=== PATIENT | female | born 1990 | race Caucasian/White ===

== ENCOUNTER 2022-08-06 17:39 | Emergency (ER) | payer BC, SELFPAY ==
[2022-08-06 17:53] VITALS: BP 172/114; PULSE 81; RESP 18; TEMP 36.8; O2SAT 98; BMI 32.5
--- NOTE | 2022-08-06 18:16 | ED_ITS ---
HPI - Chest Pain General Chief Complaint: Chest Pain Stated Complaint: Chest Pressure Time Seen by Provider: 08/06/22 18:05 History of Present Illness HPI narrative: Radha is a 32yo female patient with known history of CML that presents emergency department with complaints of chest pain present for weeks. The patient reports the pain is well localized to her sternum without radiation of pain. There has been no aggravating or alleviating factors noted. She denies pain with deep inspiration. The patient states she has seen her primary physicians for this concern, and she was advised if the complaint return she should present to the emergency department for evaluation. She reports that the pain began again around 11:00 a.m. today and has waxed and waned throughout the day. The pain at onset was 7/10 and at time of evaluation is noted to be 4/10. The patient reports chronic nausea, and she states there has been no acute change in her level of nausea associated with this concern. She denies any shortness of breath or cough associated. She has had no fever, chills, or sweats. She has had no abdominal pain. She reports a remote history of GERD, and she states this is not similar to previous GERD symptoms. She has no family history of CAD or CO. she denies a personal history of CAD or CO. She does not smoke or use illicit substances. Related Data Home Medications Medication Instructions Recorded Confirmed dasatinib 70 mg tablet (Sprycel) mg PO 08/06/22 duloxetine 60 mg capsule,delayed mg PO 08/06/22 release Allergies Allergy/AdvReac Type Severity Reaction Status Date / Time No Known Drug Allergies Allergy Verified 08/06/22 17:56 Review of Systems Const Denies: fever, chills, fatigue, malaise or night sweats ENMT Denies: throat pain, ear discharge, nasal discharge or nasal congestion Cardio Reports: chest pain; Denies: palpitations, shortness of breath with exertion or shortness of breath when lying down Resp Denies: shortness of breath or cough GI Reports: nausea; Denies: abdominal pain, vomiting, heartburn, diarrhea, constipation, bloating, belching or excessive passing of gas Denies: painful urination, urinary frequency, urinary urgency or blood in urine Musculo Denies: back pain Psych Reports: anxiety (chronic, currently controlled) Endo Denies: excessive urination or fatigue PFSH PFSH Social History Smoking Status: Never smoker Do you use any of these nicotine containing products: None Second hand tobacco smoke exposure: No How often do you have a drink containing alcohol: never How often do you have six or more drinks on one occasion: Never AUDIT-C Alcohol total score: 0 Non-prescribed substance use: denies use service: No Exam Const Vital Signs, click to edit/add: Vital Signs - 24 hr 08/06/22 17:53 08/06/22 18:53 Temperature 98.3 F Pulse Rate [Right Pulse Oximeter] 81 76 Respiratory Rate 18 18 Blood Pressure [Right Upper Arm] 172/114 H 132/89 Pulse Oximetry 98 96 Oxygen Delivery Method Room Air Room Air Documenting provider has reviewed patient's vital signs: yes Common normals: no apparent distress, oriented x3, no limitations, healthy appearing, alert and well nourished General appearance: cooperative, comfortable and well developed; not in distress Orientation/consciousness: Yes awake, Yes oriented to person, Yes oriented to place and Yes oriented to time HENMT Common normals: normocephalic and head/scalp atraumatic Head and scalp: normocephalic and atraumatic Face and sinus: normal facial exam (limited by masking) Eye Common normals: EOMs intact bilaterally General eye: normal appearance of both eyes Chest Common normals: palpation of chest normal Resp Common normals: normal respiratory effort, no retractions, no use of accessory muscles and clear to auscultation bilaterally Effort & inspection: able to speak in complete sentences Auscultation: clear to auscultation bilaterally Cardio Common normals: regular rate, regular rhythm, S1 normal heart sound, S2 normal heart sound, no gallops, no clicks and no murmurs Rate: regular rate Rhythm: regular rhythm Heart sounds: S1 normal and S2 normal GI Common normals: Normal to inspection, nondistended, normoactive bowel sounds present and soft to palpation Palpation: soft and tender Common normals: no CVA tenderness Bladder/kidney exam: no CVA tenderness Back & Pelvis Common normals: no CVA tenderness Extremity Common normals: normal to inspection, full ROM and no clubbing, cyanosis or edema Neuro Common normals: oriented x3, CN's II-XII intact bilaterally, moves all extremities, no focal motor deficits and no sensory deficits noted Sensorium/orientation: awake, alert, oriented to person, oriented to place and oriented to time Gait (neuro): normal gait Sensory exam: double simultaneous stimulation for sensation normal Motor exam: no movement abnormalities noted Psych Common normals: mental status grossly normal, thought process normal and speech normal Appearance: grossly normal Attitude: calm Speech: normal speech Thought process: normal thought process Thought content: normal thought content Attention/concentration: attention grossly intact Memory/cognition: memory grossly intact Insight: insight good Judgement: judgment good Skin Common normals: no rashes or lesions noted General skin exam: no rashes or lesions noted Course Course Hospital Course: Radha presented for concerns about chest pain that has been present for weeks, but waxing and waning. She would like evaluation and treatment and presents at the request of her primary physician. The patient denied treatment or evaluation prior to presentation. Labs and ECG were ordered. Imaging will be reserved pending lab evaluation, given patient's h/o CML, DDimer has been ordered. She is resting comfortably and has been advised to notify staff if her pain worsens. She has been offered a GI cocktail for pain control after evaluation. Reevaluation(s) Reevaluation #1: Patient reports significant improvement in symptoms. Patient's vital signs have remained stable, although noted to be hypertensive. She did not receive GI cocktail, and she still reports significant improvement in pain. The results were discussed, and the patient verbalized understanding. Reasons for follow-up or return were discussed. Time: 19:47 Vital Signs Vital signs: Initial Vital Signs Temperature 98.3 F 08/06/22 17:53 Temperature Source Temporal Artery Scan 08/06/22 17:53 Pulse Rate 81 08/06/22 17:53 Respiratory Rate 18 08/06/22 17:53 Blood Pressure 172/114 H 08/06/22 17:53 Blood Pressure Mean 133 08/06/22 17:53 Blood Pressure Position Sitting 08/06/22 17:53 Pulse Oximetry 98 08/06/22 17:53 Oxygen Delivery Method 08/06/22 17:53 Vital Signs Temperature 98.3 F 08/06/22 17:53 Pulse Rate 81 08/06/22 17:53 Respiratory Rate 18 08/06/22 17:53 Blood Pressure 172/114 H 08/06/22 17:53 Pulse Oximetry 98 08/06/22 17:53 Oxygen Delivery Method 08/06/22 17:53 Temperature 98.3 F 08/06/22 17:53 Pulse Rate 76 08/06/22 18:53 Respiratory Rate 18 08/06/22 18:53 Blood Pressure 132/89 08/06/22 18:53 Pulse Oximetry 96 08/06/22 18:53 Oxygen Delivery Method 08/06/22 18:53 MDM - Chest Pain MDM Narrative Medical decision making narrative: During evaluation of this patient, I consider multiple differential diagnoses. The life-threatening differential diagnoses: CAD/CO, PE, pneumothorax, pneumonia, and aortic dissection. Other differential diagnoses include but are not limited to: infectious or inflammatory findings, pericarditis, myocarditis, chest wall pain, GERD, esophageal rupture, as well as other etiologies. Medical Records Data Attestation: I reviewed the patient's medical records. Lab Data Attestation: I reviewed the patient's lab results. Labs: Lab Results 08/06/22 08/06/22 08/06/22 Range/Units 18:35 18:35 18:35 WBC 8.17 (4.50-11.00) K/uL RBC 4.25 (4.00-5.20) m/uL Hgb 13.2 (12.0-16.0) gm/dL Hct 39.3 (33.0-51.0) % MCV 93 (80-100) fL MCH 31 (26-34) pg MCHC 34 (32-36) gm/dL RDW Coeff of [place] 13.2 (11.5-15.5) % Plt Count 74 L (140-440) K/uL Neut % (Auto) 30.9 L (42.0-72.0) % Lymph % (Auto) 59.0 H (20-44) % [place] % (Auto) 8.0 (0.0-11.0) % Eos % (Auto) 1.3 (0.0-7.0) % Baso % (Auto) 0.4 (0.0-3.0) % Neut # (Auto) 2.50 (1.7-7.0) K/uL Lymph # (Auto) 4.80 H (0.90-2.90) K/uL [place] # (Auto) 0.70 (0.00-0.90) K/UL Eos # (Auto) 0.11 (0.00-0.50) K/uL Baso # (Auto) 0.03 (0.00-0.30) K/uL Abs Immat Gran (auto) 0.03 (0.00-0.30) K/uL D-Dimer Quant (PE/DVT) 0.27 (0.00-0.50) ug/ml Sodium 137 (135-149) mmol/L Potassium 4.0 (3.6-5.1) mmol/L Chloride 103 (96-114) mmol/L Carbon Dioxide 23 (20-32) mmol/L BUN 12 (5-24) mg/dL Creatinine 0.7 (0.5-1.5) mg/dL Estimated Creat Clear 119.46 Estimated GFR 117 ml/min Glucose 91 (60-115) mg/dL Calcium 9.1 (8.4-10.6) mg/dL Troponin I < 0.01 L (0.01-0.04) ng/mL ECG Data Attestation: I personally reviewed and interpreted this ECG as follows: ECG interpretation date: 08/06/22 ECG interpretation time: 18:36 Prior ECG tracings: not available for review Interpretation: Normal sinus rhythm. 76bpm. Normal axis. Normal intervals with possible LAE noted. No significant ST-T wave changes noted. Discharge Plan Discharge Clinical Impression: Atypical chest pain Patient Disposition: Home, Self-Care Condition: Improved Instructions: Noncardiac Chest Pain (ED) Additional Instructions: Thank you for choosing [facility] for your care today. You should consider following up outpatient with consideration for outpatient stress ECHO. You do not have multiple risk factors for ACS. You should return to the emergency department if condition worsens (chest pain, shortness of breath or further sweaty spells) and/or as needed. Your care today was on an emergency basis and is not intended to be a substitute for on- going care with your primary physician. I recommend calling primary care for follow-up in the next 3-5 days for follow-up as needed and to review any labs, testing, or imaging you have had in the Emergency Department. If new or worsening symptoms develop or you have any concerns in the meantime, please call your primary care clinic or return to the ER for re-evaluation. Activity Level: No Restrictions and Activity as Tolerated Discharge Diet: Heart Healthy (2 gm sodium, low fat) Prescriptions: No Action duloxetine 60 mg capsule,delayed release(DR/EC) PO Sprycel 70 mg tablet PO Stand Alone Forms: [facility] Info Instructions
[2022-08-06 18:53] VITALS: BP 132/89; PULSE 76; RESP 18; O2SAT 96
[2022-08-06 18:55] LABS: Basophils Absolute Auto 0.03 K/uL (0.00-0.30); Basophils Percent Auto 0.4 % (0.0-3.0); Eosinophils Absolute Auto 0.11 K/uL (0.00-0.50); Eosinophils Percent Auto 1.3 % (0.0-7.0); Hematocrit 39.3 % (33.0-51.0); Hemoglobin* 13.2 gm/dL (12.0-16.0); Immature Granulocytes Abs Auto 0.03 K/uL (0.00-0.30); Mean Corpuscular HGB Conc 34 gm/dL (32-36); Mean Corpuscular Hemoglobin 31 pg (26-34); Mean Corpuscular Volume 93 fL (80-100); Neutrophils Percent Auto 30.9 % (42.0-72.0); Platelet Count* 74 K/uL (140-440); RDW Coefficient of Variation % 13.2 % (11.5-15.5); Red Blood Count 4.25 m/uL (4.00-5.20); White Blood Count* 8.17 K/uL (4.50-11.00)
[2022-08-06 18:59] LABS: Slide Review Reflex No
[2022-08-06 19:11] LABS: Chloride* 103 mmol/L (96-114)
[2022-08-06 19:12] LABS: Sodium* 137 mmol/L (135-149)
[2022-08-06 19:14] LABS: Creatinine* 0.7 mg/dL (0.5-1.5); Est. Creatinine Clearance* 119.46; Estimated Glomerular Filt Rate 117 ml/min
[2022-08-06 19:15] LABS: Blood Urea Nitrogen* 12 mg/dL (5-24); Calcium* 9.1 mg/dL (8.4-10.6); Carbon Dioxide* 23 mmol/L (20-32); Glucose* 91 mg/dL (60-115)
[2022-08-06 19:17] LABS: D Dimer Quantitative* 0.27 ug/ml (0.00-0.50)
[2022-08-06 19:28] LABS: Troponin I* < 0.01 ng/mL (0.01-0.04)
[2022-08-06 19:30] VITALS: BP 129/100; PULSE 74; RESP 18; O2SAT 96
[2022-08-06 20:00] VITALS: BP 120/96; PULSE 71; RESP 18; TEMP 36.8
== END 2022-08-06 20:01 | disposition home or self-care (01) ==
PROVIDERS: Emergency Provider Family Medicine
DX: R07.89 Other chest pain (principal)
CPT/HCPCS: 36415; 80048; 84484; 85025; 85379; 93005; 99283; 99284

== ENCOUNTER 2022-08-07 15:41 | Emergency (ER) | payer BC, SELFPAY ==
[2022-08-07 15:50] VITALS: BP 137/78; PULSE 78; RESP 16; TEMP 36.8; O2SAT 98
--- NOTE | 2022-08-07 16:25 | ED_ITS ---
HPI - Chest Pain General Chief Complaint: Chest Pain Stated Complaint: Chest pain Time Seen by Provider: 08/07/22 15:48 History of Present Illness HPI narrative: This 32-year-old female comes in with reproducible chest pain when taking a deep breath. She was seen last evening in the emergency department for these same symptoms and had normal EKG and labs done at that time. She called the nurse line and was instructed to come back today because chest discomfort. She does not report any recent injury event or strenuous activity. She does have a history of CML and yesterday her D-dimer was 0.27. She states that she does not have any nausea, vomiting, lightheadedness, shortness of breath, or diaphoresis. She has good exercise tolerance. She states that she can distinctly reproduced this discomfort by taking a deep breath. She feels pain in her upper sternal area when doing so. Related Data Home Medications Medication Instructions Recorded Confirmed dasatinib 70 mg tablet (Sprycel) mg PO 08/06/22 duloxetine 60 mg capsule,delayed mg PO 08/06/22 release Allergies Allergy/AdvReac Type Severity Reaction Status Date / Time No Known Drug Allergies Allergy Verified 08/06/22 17:56 Review of Systems Status of ROS Reports: 10 or more systems reviewed and unremarkable except as noted in History and below Narrative Constitutional: No fevers, no weight gain or loss. Eyes: No discharge. No vision changes. HENT: No congestion, no sore throat, no ear pain. Cardiovascular: No palpitations. Respiratory: No shortness of breath, no wheezes, no cough. Gastrointestinal: No abdominal pain, no vomiting, no diarrhea. Genitourinary: No dysuria, no hematuria. Musculoskeletal: Normal range of motion. Skin: No rashes, no pruritis. Neurological: No dizziness, weakness, sensory change, speech change. Endo/Heme/Allergies: No bruising or bleeding. No polydipsia. Pysch: no suicidality, no anxiety, no insomnia. All other systems reviewed and are negative. PFSH PFS Social History Smoking Status: Never smoker Do you use any of these nicotine containing products: None Second hand tobacco smoke exposure: No How often do you have a drink containing alcohol: never How often do you have six or more drinks on one occasion: Never AUDIT-C Alcohol total score: 0 Non-prescribed substance use: denies use service: No Exam Narrative Exam Narrative: Constitutional: Well-developed, well-nourished, no acute distress. HEENT: Normocephalic, atraumatic. Neck: Normal range of motion. Nontender. Supple. Heart: Regular. No murmurs. Normal rate. Intact distal pulses. Lungs: Clear to auscultation. No wheezes, rhonchi, or rales. Chest discomfort is distinctly reproduced when taking a deep breath. Abdomen: Normal bowel sounds. Nontender. No rebound tenderness. Genitalia: Deferred. Back: No midline tenderness. Normal range of motion. Extremities: Normal range of motion. No injury. Skin: Intact. No rash. Warm. No erythema or pallor. Neurologic: No altered sensation. No weakness. Alert and oriented. Psychiatric: No suicidality. No anxiety or depression. No insomnia. Nursing notes and vitals signs are reviewed. Const Vital Signs, click to edit/add: Vital Signs - 24 hr 08/07/22 15:50 08/07/22 16:35 Temperature 98.3 F Pulse Rate [Pulse Oximeter] 78 87 Respiratory Rate 16 Blood Pressure [Right Upper Arm] 137/78 125/79 Pulse Oximetry 98 97 Oxygen Delivery Method Room Air Room Air Course Vital Signs Vital signs: Initial Vital Signs Temperature 98.3 F 08/07/22 15:50 Temperature Source Oral 08/07/22 15:50 Pulse Rate 78 08/07/22 15:50 Pulse Rhythm 08/07/22 15:50 Respiratory Rate 16 08/07/22 15:50 Blood Pressure 137/78 08/07/22 15:50 Blood Pressure Mean 97 08/07/22 15:50 Blood Pressure Position Sitting 08/07/22 15:50 Pulse Oximetry 98 08/07/22 15:50 Oxygen Delivery Method 08/07/22 15:50 Vital Signs Temperature 98.3 F 08/07/22 15:50 Pulse Rate 78 08/07/22 15:50 Respiratory Rate 16 08/07/22 15:50 Blood Pressure 137/78 08/07/22 15:50 Pulse Oximetry 98 08/07/22 15:50 Oxygen Delivery Method 08/07/22 15:50 Temperature 98.3 F 08/07/22 15:50 Pulse Rate 87 08/07/22 16:35 Respiratory Rate 16 08/07/22 15:50 Blood Pressure 125/79 08/07/22 16:35 Pulse Oximetry 97 08/07/22 16:35 Oxygen Delivery Method 08/07/22 16:35 MDM - Chest Pain MDM Narrative Medical decision making narrative: This patient returns at the advice of a nurse on the phone that she was speaking with to evaluate her chest pain. There was an appropriate workup done last evening for these same symptoms. An EKG was repeated again today which shows normal sinus rhythm and no sign of ST or T-wave abnormalities. I did discuss her symptoms as likely related to chest wall pain as it is reproducible with taking a deep breath. I did use bedside ultrasound to evaluate heart and lungs further. This yielded normal findings. ECG Data Attestation: I personally reviewed and interpreted this ECG as follows: Interpretation: Normal sinus rhythm. Rate 72 beats per minute. There are no ST or T-wave abnormalities. Discharge Plan Discharge Clinical Impression: Chest wall pain Patient Disposition: Home, Self-Care Condition: Stable Additional Instructions: Continue current plans. Follow up with MD as scheduled. Use [id number] medicines as needed and directed. Prescriptions: No Action duloxetine 60 mg capsule,delayed release(DR/EC) PO Sprycel 70 mg tablet PO Follow Up/Referrals: Provider,Not a Local [Referring] - Stand Alone Forms: [facility] Info Instructions Procedures Ultrasound Other exam #1: Anatomical areas examined: Lungs and heart. Indications: Chest pain. Exam type: focused emergency ultrasound Description/findings: Normal B-lines on lung exam indicating no sign of pneumothorax. Cardiac images also show normal contractility without wall motion abnormality. There is no sign of fluid around the heart. Impression: Normal cardiac and lung images.
[2022-08-07 16:35] VITALS: BP 125/79; PULSE 87; O2SAT 97
== END 2022-08-07 16:49 | disposition home or self-care (01) ==
PROVIDERS: Emergency Provider Emergency Medicine Emergency Medical Services; PCP Registered Nurse
DX: R07.89 Other chest pain (principal)
CPT/HCPCS: 76604; 76705; 93005; 93308; 99283; 99284

== ENCOUNTER 2025-05-31 14:32 | Emergency (ER) | payer MEDICARE, BC, SELFPAY ==
--- OUTSIDE RECORDS SUMMARY | 2025-04-20 08:00 | XMS_ITS | Encounter Summary ---
Author Organization [facility] Address [address] [place] [address] Care Team Providers Care Coconut Cooker Name Role Phone Renzo Andres M.D. Primary Care Provider Encounter Details Date Type Department Care Team (Latest Contact Info) Description 04/20/2025 8:00 AM CDT - 04/20/2025 11:59 PM CDT Hospital Encounter Department of Laboratory Medicine in [place] [address] [place] [phone] Becky Hernandez APRN, C.N.P., D.N.P. 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 No 12/19/2024 Humiliation, Afraid, Rape, and Kick questionnair e Answer Date Recorded Within the last year, have y ou been afraid of your partner or ex-partner? No 12/19/2024 Within the last year, have y ou been humiliated or emotionally abused in other ways by your partner or ex-partner? No Within the last year, have y ou been kicked, hit, slapped, or otherwise physically hurt by your partner or ex-partner? No 12/19/2024 Within the last year, have y ou been raped or forced to have any kind of sexual activity by your partner or ex-partner? No 12/19/2024 Hunger Vital Sign Answer Date Recorded Within the past 12 months, y ou worried that your food would run out before you got the money to buy more. Never true 12/19/19 25 Within the past 12 months, t he food you bought just didn't last and you didn't have money to get more. Never true 12/19/2024 PRAPARE - Transportation Answer Date Re corded In the past 12 months, has l ack of transportation kept you from medical appointments or from getting medications? No 11/21 In the past 12 months, has l ack of transportation kept you from meetings, work, or from getting things needed for daily living? No 12/19/2024 Depression Answer Date Recor ded PHQ-9 Total Score (max 27) 2 12/10 Housing Stability Answer Date Recorded What is your living situation today? I have a [facility] place to live 12/19/2024 Education Answer Date Recorded What is the highest level of school you have completed or the highest degree you have received? 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 60 tablet 11 04/15/2025 ARIPiprazole (Abilify) 10 mg tablet Take 1 tablet (10 mg total) by mouth daily. Dose change 12/02/2024 30 tablet 5 04/15/2025 5 cholecalciferol (Vitamin D3) 50 mcg (2,000 Unit) tablet Take 50 mcg by mouth daily. 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 120 capsule 5 02/18/2025 7:29 AM CDT 12/31/2024 5 gabapentin (Neurontin) 300 mg capsule Take 1 capsule (300 mg total) by mouth as directed. 04/16 300 mg in am 300 mg at lunch and 600 mg at bedtime 04/18/2025 5 HYDROmorphone (Dilaudid) 1 mg/mL liquidIndications: Chronic Pain/Nonacute Pain Take 0.5 mL (0.5 mg total) by mouth daily as needed for pain Indication: Chronic Pain/Nonacute Pain. 10 mL 04/08/2025 5 LORazepam (Ativan) 0.5 mg tablet Take 1 tablet (0.5 mg total) by mouth at bedtime as needed for anxiety. 30 tablet 04/15/2025 5 magnesium oxide (MagOx) 400 mg (241.3 mg magnesium) tablet Take 400 mg by mouth daily. 01/30/2025 5 melatonin 3 mg tablet Take 1 tablet (3 mg total) by mouth at bedtime. 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 Start on Day -1 (1/21/25). 60 tablet 11 03/18/2025 12:58 PM CDT 12/09/2024 sulfamethoxazole-t rimethoprim (Bactrim) 400-80 mg per tabletIndications: Transplant Bone Marrow Allogeneic (HCC),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) Take 1 tablet by mouth daily. 60 tablet 1 04/15/2025 tacrolimus (Prograf) 0.5 mg capsuleIndications :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),Transplant Bone Marrow Allogeneic (HCC),Encounter Admission For Chemotherapy Take 0.5 mg by mouth as directed. 04/03/25 take twice weekly for 2 weeks then discontinue. 03/24/2025 5 ursodioL (ActigalL) 300 mg capsule Take 1 capsule (300 mg total) by mouth as directed. Starting 04/07 300 mg daily for 2 weeks. Then, discontinue. 30 capsule 1 04/08/2025 5 documented as of this encounter Plan of Treatment Upcoming Encounters Date Type Department Care Team (Latest Contact Info) Description 05/29/2025 11:59 PM CDT Anesthesia Event Division of Gastroenterology in [place], [place] [address] [place] [phone] Bri Valenzuela M.D. [address] [place] [phone] 06/01/2025 1:15 PM CDT Appointment Division of Gastroenterology in [place], [place] [address] [place] [phone] Lito Pollock P.A.-C. [address] [place] [phone] Jeaneth Núñez M.B.B.S., M.S. [address] [place] [phone] 06/03/2025 7:30 AM CDT Appointment Department of Laboratory Medicine in [place], [place] [address] [place] [phone] Lito Pollock P.A.-C. [address] [place] [phone] 06/03/2025 10:00 AM CDT Telemedicine [facility] in [place], [place] [address] [place] [phone] Tessa Jesus APRN, C.N.P., D.N.P. [address] [place] [phone] 06/10/2025 1:20 PM CDT Nurse Only Section of Infectious Diseases in [place], [place] [address] [place] [phone] Jessica Rousseau M.B.B.S. [address] [place] [phone] 06/15/2025 9:45 AM CDT Appointment Outpatient [facility] in [place], [place] [address] [place] [phone] Jessica Rousseau M.B.B.S. [address] [place] [phone] 06/24/2025 12:30 PM CDT Clinical Communication Virtual Review in [place], [place] [address] [place] [phone] 06/25/2025 8:10 AM CDT Lab Department of Laboratory Medicine and Pathology, [facility], in [place], [place] [address] [place] [phone] Tessa Jesus APRN, C.N.P., D.N.P. [address] [place] [phone] 06/25/2025 9:00 AM CDT Office Visit [facility] in [place], [place] [address] [place] [phone] Tessa Jesus APRN, C.N.P., D.N.P. [address] [place] [phone] 06/25/2025 9:30 AM CDT Nurse Only [facility] Transplantation [facility] Clinical [facility]eneration in [place], [place] [address] [place] [phone] Tessa Jesus APRN, C.N.P., D.N.P. [address] [place] [phone] 06/25/2025 10:30 AM CDT Office Visit [facility] Transplantation and Clinical Regeneration in [place], [place] [address] [place] [phone] Jessica Rousseau M.B.B.S. [address] [place] [phone] 06/26/2025 10:00 AM CDT Telemedicine Department of Palliative Care in [address] [phone] Isabel Sellers M.D. [address] [place] [phone] Debbie Shay M.D. 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 LAB BL OOD ADD-ON Final Result [facility] [address] [address], [facility] [facility] in [place] [address] [place] [address] * (ABNORMAL) Comprehensive Metabolic Panel (04/20/2025 10:02 AM CDT) Potassium, P 4.4 3.6 - 5.2 mmol/L 04/20/2025 2:17 PM CDT [facility]AT Sodium, P 139 135 - 145 mmol/L 04/20/2025 2:17 PM CDT [facility] Chloride, P 104 98 - 107 mmol/L 04/20/2025 2:17 PM CDT [facility] Bicarbonate, P 26 22 - 29 mmol/L 04/20/2025 2:17 PM CDT [facility] Anion Gap, P 9 7 - 15 04/20/2025 2:17 PM CDT [facility] BUN (Blood Urea Nitrogen), P 8 6 - 21 mg/dL 04/20/2025 2:17 PM CDT [facility] Creatinine 0.65 0.59 - 1.04 mg/dL 04/20/2025 2:17 PM CDT [facility] Estimated GFR (eGFR) >90 >=60 mL/min/BS A 04/20/2025 2:17 PM CDT [facility]AT Comment: Estimated GFR calculated using the 2020 CKD_EPI creatinine equation. Calcium, Total, P 9.4 8.6 - 10.0 mg/dL 04/20/2025 2:17 PM CDT [facility]AT Glucose, P 146(H) 70 - 140 mg/dL 04/20/2025 2:17 PM CDT [facility] Protein, Total, P 7.2 6.3 - 7.9 g/dL 04/20/2025 2:17 PM CDT [facility]AT Albumin, P 4.1 3.5 - 5.0 g/dL 04/20/2025 2:17 PM CDT [facility] Aspartate Aminotransferase (AST), P 38 8 - 43 U/L 04/20/2025 2:17 PM CDT [facility] Alkaline Phosphatase, P 90 35 - 104 U/L 04/20/2025 2:17 PM CDT [facility] Alanine Aminotransferase (ALT), P 52(H) 7 - 45 U/L 04/20/2025 2:17 PM CDT [facility] Bilirubin, Total, P <0.2 0.0 - 1.2 mg/dL 04/20/2025 2:17 PM CDT [facility]AT Blood (Blood, Venous) 04/20/2025 10:02 AM CDT 04/20/2025 1:43 PM CDT us Becky Hernandez APRN, C.N.P., D.N.P. LAB BL OOD ADD-ON Final Result [facility] [address] [place] [address], [place] OW[facility] in [place] [address] [place] [address] * (ABNORMAL) CBC with Differential, Blood (04/20/2025 10:02 AM CDT) Hemoglobin 11.8 11.6 - 15.0 g/dL 04/20/2025 10:42 AM CDT [facility] Hematocrit 37.3 35.5 - 44.9 % 04/20/2025 10:42 AM CDT [facility] Erythrocytes 4.31 3.92 - 5.13 x10(12)/L 04/20/2025 10:42 AM CDT [facility] MCV 86.5 78.2 - 97.9 fL 04/20/2025 10:42 AM CDT [facility] RBC Distrib Width 13.2 12.2 - 16.1 % 04/20/2025 10:42 AM CDT [facility] Platelet Count 177 157 - 371 x10(9)/L 04/20/2025 10:42 AM CDT [facility] Leukocytes 3.5 3.4 - 9.6 x10(9)/L 04/20/2025 10:42 AM CDT [facility] Neutrophils 2.55 1.56 - 6.45 x10(9)/L 04/20/2025 10:42 AM CDT [facility] Lymphocytes 0.56(L) 0.95 - 3.07 x10(9)/L 04/20/2025 10:42 AM CDT [facility] Monocytes 0.22(L) 0.26 - 0.81 x10(9)/L 04/20/2025 10:42 AM CDT [facility] Eosinophils 0.09 0.03 - 0.48 x10(9)/L 04/20/2025 10:42 AM CDT [facility] Basophils 0.03 0.01 - 0.08 x10(9)/L 04/20/2025 10:42 AM CDT OWAT Blood (Blood, Venous) 04/20/2025 10:02 AM CDT 04/20/2025 10:37 AM CDT Becky Hernandez APRN, C.N.P., D.N.P. 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 [address] [place] [phone] PCP - General Family Medicine 04/25/23 documented as of this encounter
--- OUTSIDE RECORDS SUMMARY | 2025-04-21 14:00 | XMS_ITS | Encounter Summary ---
Author Organization [facility] Address [address] [place] [phone] Care Team Providers Care Head Tennis Coach Name Role Phone Renzo Andres M.D. Primary Care Provider [phone] Reason for Referral * Outpatient (Routine) - Authorized Specialty Diagnoses / Procedures Referred By Contac t Referred To Contact Palliative Medicine Diagnoses Transplant Stem Cell (HCC) Martnie Pardo B.M.B.SKatalina, B.M., B.Ch. [address] [place] [phone] Phone: tel: fax: [facility] Referral ID Status Reason Start Date Expiration Date V isits Requested Visits Authorized [id number] Authorized 04/21/2025 10/21/2026 1 1 Scheduling Instructions On 04/29 if possible; otherwise 1 month out/coordinate with other appointments. * Outpatient (Routine) - Authorized Specialty Diagnoses / Procedures Referred By Contac t Referred To Contact Palliative Medicine Diagnoses Transplant Stem Cell (HCC) Martine Pardo B.M.B.S., B.M., B.Ch. [address] [place] [phone] Phone: tel: fax: [facility] Referral ID Status Reason Start Date Expiration Date V isits Requested Visits Authorized [id number] Authorized 04/21/2025 10/21/2026 1 1 * Outpatient (Routine) - Closed Specialty Diagnoses / Procedures Referred By Estefania acosta Referred To Contact Palliative Medicine Martine Pardo B.M.B.S., Juan M, B.Ch. [address] [place] [phone] Phone: tel: fax: [facility] Referral ID Status Reason Start Date Expiration Date Visits Re quested Visits Authorized [id number] Closed 04/21/2025 10/21/2026 1 1 Scheduling Instructions F/u 4-6 weeks, try to co-ordinate with other appointments here in [place] Reason for Visit * Outpatient (Routine) - Closed Specialty Diagnoses / Procedures Referred By Estefania acosta Referred To Contact Palliative Medicine Diagnoses Transplant Stem Cell (HCC) Becky Hernandez APRN, C.N.P., D.N.P. [address] [place] [phone] Phone: tel: fax: [facility] Referral ID Status Reason Start Date Expiration Date Visits Re quested Visits Authorized [id number] Closed 04/18/2025 10/18/2026 1 1 Encounter Details Date Type Department Care Team (Latest Contact Info) Description 04/21/2025 2:00 PM CDT Comprehensive Visit Department of Palliative Care in [place], [place] [address] [place] [phone] Martine Pardo B.M.B.S., Juan M, B.Ch. [address] [place] [phone] Evangelina Jaime R.N. 200 [place] [phone] Pain Neuropathic (Primary Dx); Transplant Stem Cell (HCC); Depressive Disorder Social History Tobacco Use Types Packs/Day Years Used Date Smoking Tobacco: Never Smokeless Tobacco: Never Alcohol Use Standard Drinks/Week Comments Yes 0 (1 standard drink = 0.6 oz pur e alcohol) social [facility] Utilities Answer Date Recorded In the past 12 months has th e electric, gas, oil, or water company threatened to shut off services in your [...] your living situation today? I have a [place] place to live 12/19/2024 Education Answer Date Recorded What is the highest level of school you have completed or the highest degree you have received? 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 Legal Sex Female 2:43 PM CONTINUOUS STILL OPERATOR Gender Identity Female 12/26/2018 8:37 PM CONTINUOUS STILL OPERATOR Sexual Orientation Choose not to disclose 2020 3:46 PM CDT documented as of this encounter Last Filed Vital Signs Vital Sign Reading Time Taken Comments Blood Pressure 128/88 04/21/2025 1:37 PM CDT Pulse 105 04/21/2025 1:37 PM CDT Temperature 36.7 C (98.1 F) 04/21/2025 1:37 PM CDT Respiratory Rate - - Oxygen Saturation 98% 04/21/2025 1:37 PM CDT Inhaled Oxygen Concentration - - Weight - - Height - - Body Mass Index - - documented in this encounter Progress Notes * Evangelina Jaime R.N. - 04/21/2025 2:00 PM CDT Palliative Care Introduction I introduced the patient to role of palliative medicine in the care of patients with serious illness, namely expertise in pain and non-pain symptom management, psychosocial, and spiritual support forpatients and families as well as assistance in broader medical decision making. Palliative MedicineClinic team sheet and contact information was reviewed with the patient. Chief Complaint/Purpose of Visit Patient was here for patient education. Patient was referred by Dr. Martine Pardo Impression/Report/Plan Please see After Visit Summary for specific patient instructions. Patient Education: Education provided to patient For details involving the learning needs assessment, teaching methods used, and evaluation of learning, please refer to the patient education flowsheet. Education topics covered in this visit include: Clinic Care Team/Contacting the Clinic and Clinic Integrative and Supportive Therapies Palliative Medicine Clinic face sheet & contact information, Palliative Care: Care for People with Serious Illness [id number] and Integrative and Supportive Therapies for Palliative Care Patients [id number] provided at this visit. Educational materials provided were: Integrative and Supportive Therapies for Palliative Care Patients [id number] and Palliative Care: Care for People with Serious Illness [id number] Follow-up as per the consult note of Dr. Martine Pardo 04/21 documented in this encounter Consult Notes * Martine Pardo B.M.B.S., Juan M, David - 04/21/2025 2:00 PM CDT [facility] Outpatient Palliative Care Consult Note Patient: Radha Martinez; 35 y.o.female REFERRING SERVICE Hematology LOCATION [facility] SUBJECTIVE CHIEF COMPLAINT / REASON FOR CONSULT Radha Martinez is a 35 y.o. 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 Reason for referral includes symptom management. HISTORY OF PRESENT ILLNESS Ms Martinez is a 35 year old female with CML s/p SCT 12/10/2024. 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 She is currently taking gabapentin 300 mg in the am, 300 mg in the afternoon and 600 mg at night. Her gabapentin was recently uptitrated on April 16. She is also taking Cymbalta 120mg daily. Additionally she has dilaudid 0.5 mg as needed and has been taking this at night to help with the pain. The pain interferes with ambulation-- she has been trying to walk more and be more active, but finds it difficult with the leg pain. She takes the 0.5mg hydromorphone in the evening andthat allows her to walk her dog in the evenings. She describes the pain as dull/achy pain down both legs with intermittent shooting pains down legs as well. Occ with tingling, no burning. Denies any numbness. Has also been on pregabalin but did notfind that effective. She tells me she was on pregabalin for about 4 weeks and is not sure of what dose she was on- I do see an old order for 75mg BID of pregabalin but she is not sure if she got to that dose. Apart from the leg pain, she denies N&V, reports regular BMs, reports fair appetite. Sleep has been better since increasing the gabapentin night dose to 600mg She lives at home with her boyfriend and 13 year old son. They are her main support system. Both enjoy fishing and she sometimes tries to go along with them on their fishing outings. She used to workin a [employer] center and is hoping to get back to that in the near future. The following portions of the patient's history were reviewed and updated as appropriate: Allergies, Current Medications, Medical History, Surgical History, Family History, and Social History Patient's Primary Caregiver: None (Self). Advance Care Planning Documents Documents notable for: AD, scanned into our EMR, names her mother and boyfriend as HC-POA. Palliative Functional Assessment 70%-Reduced ambulation, Unable to do normal job/work with significant evidence of disease, Full self-care, Normal or reduced intake, Full level of consciousness OBJECTIVE PHYSICAL EXAM Temp 36.7 HR 105 BP 128/88 SpO2 98% RA Physical Exam Gen: sitting in chair, not in distress Neuro: awake, alert Resp: non-labored breathing Psych: calm, good eye contact Medications/Diagnostics Relevant results for this consult include Cr 0.65 ASSESSMENT / PLAN Radha Martinez is a 35 y.o. 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 Reason for referral includes symptom management. We introduced the patient and caregiver to role of palliative care in the care of patients with serious illness, namely expertise in pain and non-pain symptom management, psychosocial, and spiritual support for patients and families as well as assistance in broader medical decision making. 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 Today her pain is improved (4/10 compared to 6/10), and she wonders if this is due to the new gabapentin dosing. She prefers tonot make any changes to her dosing today, but to f/u with her in 2-3 days. If pain continues to be improved, would keep dosing as is. If pain is back to 6/10, can increase the gabapentin to 600/300/600 for 5-7 days then potentially increase to 600mg TID. She also takes hydromorphone 0.5mg oral solution nightly which helps her pain. Am hopeful that if increase dose of gabapentin is helpful, that we can wean off the hydromorphone. Alternatively, if still needing low dose opioids, would consider rotating to buprenorphine (Butrans patch). We did discuss this today as a future consideration. She is very open to non-pharm interventions and we discussed acupressure, auricular acupressure Alfredo. Appointment have been set for next week. She is also planning on speaking with her PCP to get a PT referral. We talked about the [facility] rehab and Cancer Fatigue clinic. She prefers to try local PT first but will let us know if she would like a referral to [facility] in the future. She describes her pain has dull/achy, rather than tingling/burning which are the more typical descriptors of neuropathic pain. If pain not improved with above measures, could consider further w/u with EMG and/or neurology referral. Opioid Summary Opioid Need: This patient has a condition that necessitates treatment with an opioid for longer than 7 days. Additionally, a non-opioid alternative was not appropriate or inadequate to manage patient???s pain. We have reviewed risks, benefits and alternatives related to opioid prescribing as well as relevant mitigation strategies. 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 Opioid Toxicity Review: We have reviewed the risks of opioid therapy and completed an assessment oftoxicities. Opioid Aberrant Use Concerns: None Opioid Risk Score: 2 Naloxone prescribed: no, MEDD< 90 and no concurrent sedating medications Depression She is on duloxetine 120mg daily, which she has found helpful. Also sees a therapist every 2 weeks. I did explain the role of our palliative SW and palliative physical therapy teacher. Also discussed Resilient Living Program and Meaning centered psychotherapy. She is interested in these programs and we have provided more information. She will let us know if she would like to participate in either of these programs. Thank you for the opportunity to see this patient. Patient has our contact information and understands to call with new/worsening symptoms or concerns. We will work alongside the primary outpatient team to address these issues. Palliative care outpatient clinic will continue to follow along. The palliative care nursing team has been directed to provide ongoing assessment, education, and therapy for symptom management according to the plan of care I have outlined. Follow up visit: provider 4-6 weeks, clinic visit Az Bryant., April., B.Ch. documented in this encounter Plan of Treatment Upcoming Encounters Date Type Department Care Team (Latest Contact Info) Description 05/29/2025 11:59 PM CDT Anesthesia Event Division of Gastroenterology in [place], [place] [address] [place] [phone] Bri Valenzuela M.D. [address] [place] [phone] 06/01/2025 1:15 PM CDT Appointment Division of Gastroenterology in [place], [place] [address] [place] [phone] Lito Pollock P.A.-C. [address] [place] [phone] Jeaneth Núñez M.B.B.S., M.S. [address] [place] [phone] 06/03/2025 7:30 AM CDT Appointment Department of Laboratory Medicine in [place], [place] [address] [place] [phone] Lito Pollock P.A.-C. [address] [place] [phone] 06/03/2025 10:00 AM CDT [facility]medicine [facility] in [place], [place] [address] [place] [phone] Tessa Jesus APRN, C.N.P., D.N.P. [address] [place] [phone] 06/10/2025 1:20 PM CDT Nurse Only Section of Infectious Diseases in [place], [place] [address] [place] [phone] Jessica Rousseau M.B.B.S. [address] [place] [phone] 06/15/2025 9:45 AM CDT Appointment Outpatient Procedure Center in [place], [place] [address] [place] [phone] Jessica Rousseau M.B.B.S. [address] [place] [phone] 06/24/2025 12:30 PM CDT Clinical Communication Virtual Review in [place], [place] 200 [place] [phone] 06/25/2025 8:10 AM CDT Lab Department of Laboratory Medicine and Pathology, [facility], in [place], [place] [address] [place] [phone] Tessa Jesus APRN, C.N.P., D.N.P. [address] [place] [phone] 06/25/2025 9:00 AM CDT [facility] [place], [place] [address] [place] [phone] Tessa Jesus APRN, C.N.P., D.N.P. [address] [place] [phone] 06/25/2025 9:30 AM CDT Nurse Only [facility] in [place], [place] [address] [place] [phone] Tessa Jesus APRN, C.N.P., D.N.P. [address] [place] [phone] 06/25/2025 10:30 AM CDT [facility] in [place], [place] [address] [place] [phone] Jessica Rousseau M.B.B.S. [address] [place] [phone] 06/26/2025 10:00 AM CDT Telemedicine Department of Palliative Care in [place], [place] [address] [place] [phone] Isabel Sellers M.D. [address] [place] [phone] Debbie Shay M.D. [address] [place] [phone] Scheduled Referrals Name Type Priority Associated Diagnoses Order Schedule Palliative Care office visit (clinic) Outpatient Referral Routine Expected: 05/21/2025 (Approximate), Expires: 07/22/2026 Palliative Care nurse therapy visit (clinic) Outpatient Referral Routine Transplant Stem Cell (HCC) Expected: 04/29/2025, Expires: 07/22/2026 Palliative Care nurse therapy visit (clinic) Outpatient Referral Routine Transplant Stem Cell (HCC) Expected: 04/29/2025, Expires: 07/22/2026 documented as of this encounter Visit Diagnoses Diagnosis Pain Neuropathic- Primary Transplant Stem Cell (HCC) Depressive Disorder documented in this encounter Additional Health Concerns Infection Onset Date Last Indicated Resolved Time Protective Environment 03/02/2023 03/02/2023 Assessment Noted Time PHQ-9 Depression Total Score: 2 12/10/19 25 2:46 PM CONTINUOUS 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 [address] [place] [address], [place] [phone] PCP - General Family Medicine 04/25/23 documented as of this encounter
--- OUTSIDE RECORDS SUMMARY | 2025-04-22 10:00 | XMS_ITS | Encounter Summary ---
Author Organization [facility] Address [address] [place] [phone] Care Team Providers Care Automotive Artist Name Role Phone Renzo nAdres M.D. Primary Care Provider Reason for Visit * Transplant (Routine) - Closed Specialty Diagnoses / Procedures Referred By Estefania t Referred To Contact Transplant Becky Hernandez APRN C.N.PKatalina, D.N.P. [address] [place] [phone] Phone: tel: fax: [facility] Referral ID Status Reason Start Date Expiration Date Visits Re quested Visits Authorized [id number] Closed 04/18/2025 10/18/2026 1 1 Encounter Details Date Type Department Care Team (Latest Contact Info) Description 04/22/2025 10:00 AM CDT Telemedicine [facility] in [place], [place] [address] [place] [phone] Becky Hernandez APRN, C.N.PKatalina, D.N.P. [address] [place] [phone] Analia Carter APRN, C.N.P. 200 [place] [phone] Pain Neuropathic (Primary Dx); 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); Transplant Stem Cell (HCC) Social History Tobacco Use Types Packs/Day Years Used Date Smoking Tobacco: Never Smokeless Tobacco: Never Alcohol Use Standard Drinks/Week Comments Yes 0 (1 standard drink = 0.6 oz pur e alcohol) social [facility] Utilities Answer Date Recorded In the past 12 months has [employer] gas, oil, or water [employer] threatened to shut off services in your [...] your living situation today? I have a [facility] [place] place to live 12/19/2024 Education Answer Date Recorded What is the highest level of school you have completed or the highest degree you have received? Some college, no degree 04/24/2019 Comments No Sex and Gender Information Value Date Recorded Sex Assigned at Female 12/26/2018 8:37 PM [employer] Legal Sex Female 2:43 PM [employer] Gender Identity Female 12/26/2018 8:37 PM [employer] Sexual Orientation Choose not to disclose 2020 3:46 PM CDT documented as of this encounter Progress Notes * Analia Carter, [employer] SUPERVISOR, C.N.P. - 04/22/2025 10:00 AM CDT TRANSPLANT PHYSICIAN Dr. Jessica Rousseau, pager [phone] CHIEF COMPLAINT/REASON FOR VISIT Ms. Radha Martinez is a 35 y.o. female with a past medical history significant for CML who is seentoday for ongoing follow up status post a matched, unrelated donor allogeneic stem cell transplant.Currently Day +133 This visit was completed using video technology with pt in her home and provider on 9 at [facility]. HISTORY OF PRESENT ILLNESS Please refer to multiple prior notes in EMR for complete hematologic history: Ms. Martinez is a 35 y.o. 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 At the time of diagnosis, there was grade 3 reticulin fibrosis noted. The cytogenetics identified a [place] chromosome in 20 metaphases. The BCR-ABL1 P 210 transcript was detected and quantitated at 83% on the international scale. Treatment: 12/12/2018 she initiated cytoreductive therapy with hydroxyurea. 12/28/2018, she initiated therapy with imatinib 400 mg once a day. 02/10/2019, the imatinib was held due to significant musculoskeletal side effects. This was eventually discontinued and on 03/09/2019 she initiated dasatinib at 100 mg once a day. 10/28/2019 Changed to Gleevec due to ongoing significant musculoskeletal side effects. BCR/ABL at on 04/26/2020 was lowest it had been on imatinib at 15%/ BCR/ABL on 06/23/2020 increased to 23% 07/05/2020 Changed to 150 mg BID nilotinib. 07/18/20 BCR-ABL P210 test was positive at 3.4% (MR 1.5). 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 She was switched to dasatinib at 70 mg PO q daily and in a few days, dose was reduced to 50 mg PO daily due to GI symptoms - nausea/vomiting, and increased appetite. 02/14/2022: Peripheral blood BCR/ABl1 p210 mRNA transcript was positive at 2.2%. Dose of dasatinib was increased to 100 mg PO daily. June - July 2023: She was unable to take her dasatinib due to illness and nausea for about 6-7 week or so. The BCR/ABL1 p210 transcript increased from 0.6% on 03/26/23 to 12% in 07/2023. We discussed switching to bosutinib at 400 mg PO daily. However, she recovered and stayed on the Sprycel at 140 mg PO daily. Since then, she continued on Sprycel and BCR/ABL1 p210 went down to as low as 0.8% in 11/2023. However, it started rising again. It nuno to 6.4% in April 2024. 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 However, BCR/ABL1 p210 transcript was present at4.6% in marrow. Karyotype continued to show persistence of t(9;22) metaphases. NGS is positive for ASXL1 p.[id number]*12 (20%) and p.Cba180* (3%). 06/17/2024: feeling quite symptomatic since the initiation of bosutinib with fatigue, diarrhea, nausea, and vomiting. 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 Pretransplant Evaluation Cardiac ECG 11/05/24 was normal sinus rhythm with QTc 435 ms. Echocardiogram 11/05/24 revealed EF of 58% and systolic strain of -18%, no RWMA. Pulmonary Chest x-ray 11/05/24 was normal. Pulmonary function test 11/05/24 revealed FEV1 of 130%, FVC of 127%, and cDLCO of 100%. Renal 11/06/24 Iothalamate corrected clearance 118 mL/min/BSA. Sinus Sinus x-ray 11/05/24 was unremarkable. Dental Patient met with OMFS 11/05/24 and was cleared for transplant. Infection Infectious disease markers 11/04/24 with Toxoplasma IgG positive- IgM negative, EBV IgG positive-IgM negative, Varicella IgG positive- IgM negative and remainder of negative/non-reactive. Imaging Studies 11/03/24 CT CAP with no solid mass, lymph node enlargement or splenomegaly. Ferritin 88 mcg/L on 11/04/24. Vitamin D 18 ng/ml on 11/04/24. Underlying Disease Pre-transplant bone marrow biopsy 11/04/24 normocellular bone marrow with morphologically normal trilineage hematopoiesis. Central Venous Access [place] CVC placed on 12/03/24 by [facility]. Social Work Seen and cleared on 10/29/24 with a SIPAT score of 36, which would make her a minimallyacceptable candidate for transplant. HCT CI Score 1, HCTCI: Psychiatric (score = 1). RECIPIENT Data DONOR Data Planned conditioning regimen: Flu/Bu Donor type: matched-unrelated ABO/Rh: O POS ABO/Rh: O POS Sex: female Sex: female CMV status: positive CMV status: negative Planned GVHD prophylaxis: Post-transplant cyclophosphamide/Tac/MMF Cell source: Mobilized PBMC ID prophylaxis: Antiviral: Acyclovir Antibacterial: Penicillin VK and Levofloxacin Antifungal: posaconazole Anti-PCP: Pentamidine before chemotherapy. Bactrim after robust engraftment DP typing: Permissive mismatch DSA: Reviewed VOD prophylaxis: Ursodiol 600 mg two times daily. [facility] ID Number: [id number] Degree of HLA match: 08/28 Number of pregnancies: 0 Fertility: Discussed with patient by Dr. Rousseau. Insurance does not cover and patient is comfortablewithout fertility plan in place. 7.04 x 10^6 CD34 cells/kg were collected. 5x10^6 CD34/kg infused on day 0. 2.04x10^6 CD34/kg remain in storage for future DLI if needed. Post Transplant Course: Admitted 12/19/2024-12/27/2024 due to mucositis which was managed with supportive cares and CPN. Improved with ANC recovery. Enterobacter cloacae UTI, treated with Ciprofloxacin INTERVAL HISTORY 04/22/25 Day+133 Ms. Martinez shares that her bilateral lower extremity discomfort is improving but still present. Since increasing Gabapentin she tells me that her pain has gone down in general from 6/10 to 4/10. She does take hydromorphone 0.5 mg q hs and 0.5 mg prn (averaging about 3 pills/week). She is following with palliative care in regards to her pain. When talking about the management of her pain she tells me that she wants to give this dose of gabapentin a bit more time before thinking about increasing the dose. She reports that she is taking 300 mg TID. She tells me that her pain is from her hips down. She has difficulty with stairs and wishes this would improve. Her son helps her quite a bit with taking laundry down stairs and starting the laundry. He will also bring it back up the stair for her. She does not that getting up from a chair is difficult as she has pain with this. We discussed ways to elevate her sitting as well as perhaps a riser for her toilet seat as she notes that givers her a bit of difficulty too. She reports going for two 10 minute walks daily, walking her dogs. She does use sun screen when she is outside. She reports mildly dry eyes for which she is using Refresh eye drops twice a day. She states this has managed her dry eyes well. She reports a good appetite without abdominal pain, nausea/vomiting. Her stools are softly formed. She denies light headedness, fevers, dysphagia, shortness of breath, chest pressure/pain, palpitations, changes to her skin other than some hyperpigmentation between her toes and around her ankles. She notes the skin is dry and peeling. She is now off tacrolimus. Magnesium level is 2.0 and she was instructed that she no longer needs to take magnesium supplementation. We also reviewed that she could discontinue the ursodiol. She had no further issues that she wished to discuss while we were visiting per telehealth. REVIEW OF SYSTEMS: Per interval history OBJECTIVE VS not obtained due to video visit. PHYSICAL EXAM (limited due to video visit) General: alert and oriented. In no acute distress. DIAGNOSTICS Labs from 04/08 reviewed. Pt will be getting a set of labs locally on April 13. Current Outpatient Medications Medication Instructions acyclovir (ZOVIRAX) 400 mg, oral, 2 times daily ARIPiprazole (ABILIFY) 10 mg, oral, Daily, Dose change 12/02/2024 cholecalciferol (VITAMIN D3) 50 mcg, Daily DULoxetine (CYMBALTA) 120 mg, oral, Daily gabapentin (NEURONTIN) 300 mg, oral, As Directed, 04/16 300 mg in am 300 mg at lunch and 600 mg at bedtime HYDROmorphone (DILAUDID) 0.5 mg, oral, Daily PRN LORazepam (ATIVAN) 0.5 mg, oral, Bedtime PRN magnesium oxide (MAGOX) 400 mg, Daily melatonin 3 mg, oral, Daily at bedtime penicillin V potassium (VEETIDS) 500 mg, oral, 2 times daily, Start on Day -1 (12/09/24). posaconazole (NOXAFIL) 300 mg, oral, Daily sulfamethoxazole-trimethoprim (Bactrim) 400-80 mg per tablet 1 tablet, oral, Daily tacrolimus (PROGRAF) 0.5 mg, As Directed ursodioL (ACTIGALL) 300 mg, oral, As Directed, Starting 04/07 300 mg daily for 2 weeks. Then, discontinue. 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 - Day +100 Peripheral sort chimerism 03/10/2025 CD3-positive fraction contains 60% donor DNA and approximately 40% recipient DNA. VH18-% donor DNA and approximately 0% recipient DNA. - Most recent CBC from 04/08 showed Hgb 12.7, Plt 218 K, WBC 4.7 and ANC 3.54 - Continue to check RT PCR BCR-ABL on peripheral blood every 6 weeks (next April 29) - Next Peripheral sort chimerism to be drawn on 04/29 - Last BM Bx from 02/18/25 was normal, no BCR-ABL1 detected. - Repeat BM biopsy scheduled June 15, 2025 # GVHD Prophylaxis - Received PTCy; MMF was stopped per protocol. - Dr. Rousseau initiated tacrolimus taper on 03/03/25 with tacrolimus taper as follows: Tacrolimus 0.5 mg po BID alternating with 0.5 mg po daily on 02/24, then tacrolimus tapered on 03/10 to 0.5 mg daily for 10 days with plan to further taper to 0.5 mg every other day starting March 20 for 10 days then discontinue. Currently has no evidence of GVHD at this time. - Tacrolimus tapered to 0.5 mg 2 days a week for 2 weeks starting 04/03 with EOT planned for 04/17/25, pt aware of plan and will call if she notices any s/s of GVHD. -Tacrolimus discontinue 04/17/2025 ACUTE GVHD (CIBMTR CRITERIA) Current Severity 04/22/2025 Skin Stage Stage 0 (No GVHD rash) Liver Stage Stage 0 (Normal bilirubin) Gut Stage Stage 0 (Diarrhea <500 mL/day) Overall Grade Grade 0 (No acute GVHD) Change from previous evaluation: NA # Antimicrobial Prophylaxis - Continues on Acyclovir, Penicillin VK, Bactrim, and Posaconazole - Anticipate discontinuing Bactrim and Posaconazole approx 3 months after discontinuation of tacrolimus (approx Jul 16) - Checking a CD 4 count on April 29. # Insomnia - Continues on Melatonin 3 mg qHS. # Peripheral neuropathy - Continues on duloxetine, pregabalin, and hydromorphone PRN. - Initiated gabapentin 300 mg po BID on 04/08 - 04/15 Titrated gabapentin up to 300 mg in am, 300 mg at lunch and 300 mg at HS. # Hypomagnesemia - 04/08/25 Mag 2.2 mg/dl - Currently taking Mag Oxide to 400 mg daily. Re-assess discontinuation of magnesium after tacrolimus completed on April 17. - Magnesium discontinued 04/22/25 as no longer on tacrolimus with normal magnesium level. # VOD Prophylaxis - 04/07 Tapered Ursodiol to 300 mg daily. Continue for 2 weeks then discontinue (April 21, 2025) - 04/22/25 Pt will discontinue ursodiol today. # Vitamin D Deficiency - Continues on Vitamin D supplement 2000 units daily # Menstrual Suppression - Last Lupron on 03/03/2025; no longer needed since her counts recovered. # Generalized Anxiety Disorder # Major Depressive Disorder, recurrent episode, mild - Saw Transplant Psychiatry on 01/19/25. - Continues on Abilify 10 mg PO daily and duloxetine 120 mg daily. - Hold CBD oral oil during transplant. 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 Has only peripheral vision in right eye. Wears glasses. - Followed by [facility] in [place], [place]. - Patient will notify team if any vision changes. # CMV Status - CMV PCR have been undetectable, last 04/08 # EBV Status - EBV PCR have been undetectable, last 03/24 # Toxoplasmosis Status - Toxo IgG seropositive. Now that patient is on Bactrim, no further testing warranted. # Blood Products # TACO - Requires infusion of platelets at a slower rate # Disposition - She will discontinue Magnesium supplement and Ursodiol today (04/22/25) - Follow-up labs, pharmacy, RN/provider April 29, 2025 - Continue gabapentin to 300 mg, 1 TID. Next palliative care appointment 04/29/25 Analia Gamez APRN, C.N.P. documented in this encounter Plan of Treatment Upcoming Encounters Date Type Department Care Team (Latest Contact Info) Description 05/29/2025 11:59 PM CDT Anesthesia Event Division of Gastroenterology in [place], [place] [address] [place] [phone] Bri Valenzuela M.D. [address] [place] [phone] 06/01/2025 1:15 PM CDT Appointment Division of Gastroenterology in [place], [place] [address] [place] [phone] Lito Pollock P.A.-C. [address] [place] [phone] Jeaneth Núñez M.B.B.S., M.S. [address] [place] [phone] 06/03/2025 7:30 AM CDT Appointment Department of Laboratory Medicine in [place], [place] [address] [place] [phone] Lito Pollock P.A.-C. [address] [place] [phone] 06/03/2025 10:00 AM CDT Telemedicine [facility] Clinical [facility] in [place], [place] [address] [place] [phone] Tessa Jesus APRN, C.N.P., D.N.P. [address] [place] [phone] 06/10/2025 1:20 PM CDT Nurse Only Section of Infectious Diseases in [place], [place] [address] [place] [phone] Jessica Rousseau M.B.B.S. [address] [place] [phone] 06/15/2025 9:45 AM CDT Appointment Outpatient Procedure Center in [place], [place] [address] [place] [phone] Jessica Rousseau M.B.B.S. [address] [place] [phone] 06/24/2025 12:30 PM CDT Clinical Communication Virtual Review in [place], [place] [address] [place] [phone] 06/25/2025 8:10 AM CDT Lab Department of Laboratory Medicine and Pathology, [facility], in [place], [place] [address] [place] [phone] Tessa Jesus APRN, C.N.P., D.N.P. [address] [place] [phone] 06/25/2025 9:00 AM CDT Office Visit [facility] Transplantation and Clinical Regeneration in [place], [place] [address] [place] [phone] Tessa Jesus APRN C.N.P., D.N.P. [address] [place] [phone] 06/25/2025 9:30 AM CDT Nurse Only [facility] Transplantation and Clinical Regeneration in [place], [place] [address] [place] [phone] Tessa Jesus APRN, C.N.P., D.N.P. [address] [place] [phone] 06/25/2025 10:30 AM CDT Office Visit [facility] Transplantation and Clinical Regeneration in [place], [place] [address] [place] [phone] Jessica Rousseau M.B.B.S. [address] [place] [phone] 06/26/2025 10:00 AM CDT Telemedicine Department of Palliative Care in [address] [phone] Isabel Sellers M.D. [address] [place] [phone] Debbie Shay M.D. [address] [place] [phone] documented as of this encounter Visit Diagnoses Diagnosis Pain Neuropathic- Primary 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) Transplant Stem Cell (HCC) documented in this encounter Additional Health Concerns Infection Onset Date Last Indicated Resolved Time Protective Environment 03/02/2023 03/02/2023 Assessment Noted Time PHQ-9 Depression Total Score: 2 12/10/19 25 2:46 PM [employer] documented as of this encounter Care Teams Automotive Artist Relationship Specialty Start Date End Date Renzo Andres M.D. [address] [place] [address] [place] [phone] PCP - General Family Medicine 04/25/23 documented as of this encounter
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
--- OUTSIDE RECORDS SUMMARY | 2025-04-29 09:30 | XMS_ITS | Encounter Summary ---
Author Organization [facility] Address [address] [place] [id number] Care Team Providers Care Bottom Cager Name Role Phone Renzo Andres M.D. Primary Care Provider Reason for Visit * Outpatient (Routine) - Closed Specialty Diagnoses / Procedures Referred By Estefania t Referred To Contact Pharmacy Becky Hernandez APRN C.N.P., D.N.P. [address] [place] [phone] Phone: tel: fax: [facility] Referral ID Status Reason Start Date Expiration Date Visits Re quested Visits Authorized [id number] Closed 04/08/2025 10/08/2026 1 1 Encounter Details Date Type Department Care Team (Latest Contact Info) Description 04/29/2025 9:30 AM CDT Office Visit Pedro sanchez [facility] in [place], [place] [address] [place] [phone] Becky Hernandez APRN, C.N.P., D.N.P. [address] [place] [phone] Nelli Parker, Pharm.D., R.Ph. 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 I have a [facility] place to live 12/19/2024 Education Answer Date Recorded What is the highest level of school you have completed or the highest degree you have received? Some college, no degree 04/24/2019 Comments No Sex and Gender Information Value Date Recorded Sex Assigned at Female 12/26/2018 8:37 PM ONLINE CONTENT EDITOR Legal Sex Female 2:43 PM ONLINE CONTENT EDITOR Gender Identity Female 12/26/2018 8:37 PM ONLINE CONTENT EDITOR Sexual Orientation Choose not to disclose 2020 3:46 PM CDT documented as of this encounter Last Filed Vital Signs Vital Sign Reading Time Taken Comments Blood Pressure 135/94 04/29/2025 9:46 AM CDT Pulse 102 04/29/2025 9:46 AM CDT Temperature 36.5 C (97.7 F) 04/29/2025 9:46 AM CDT Respiratory Rate - - Oxygen Saturation - - Inhaled Oxygen Concentration - - Weight 103 kg (227 lb 2.9 oz) 04/29/2025 9:44 AM CDT Height - - Body Mass Index 34.39 04/08/2025 11:32 AM CDT documented in this encounter Progress Notes * Amber Diego, Pharm.D., R.Ph. - 04/29/2025 9:30 AM CDT Medication Management Services ([facility]) SUBJECTIVE Radha Martinez is a 35 y.o. female, who is seen by the [facility] Pharmacist for targeted medication review. She was referred by Becky Hernandez APRN, C.N.P., D.N.P. per departmental standard of care. Patient does NOT appear cognitively impaired at this visit. Patient was at the visit unaccompanied. The purpose of the visit is: post-transplant medication review. The following portions of the patient's history were reviewed and updated as appropriate: Allergies[1], Current Medications[2], Family History[3], Medical History[4], Social History[5] (including tobacco, alcohol and illicit drug use), Surgical History[6], and Problem List[7]. Ms. 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 Day 0 was 12/10/24. SOCIAL HISTORY From previous notes: She is in a relationship with boyfriend Charles, they have one son (12 years old at time of transplant). She is currently on disability d/t diagnosis. No history of tobacco use, limited alcohol use, has medical marijuana card. MEDICATION-RELATED HISTORY CML: Diagnosed 11/2018, s/p hydroxyurea followed by imatinib (musculoskeletal side effects), dasatinib (musculoskeletal side effects), imatinib (increasing BCR-ABL1 P210), nilotinib (Y253H mutation), dasatinib (GI), bosutinib. She was on bosutinib 300 mg daily at pretransplant visit, held for transplant. 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 She received conditioning with myeloablative fludarabine / busulfan followed by stem cell infusion on 12/10/24. Peripheral blood sort chimerism 01/09/25 CD3 40% donor DNA and CD33 100% donor DNA. Peripheral blood sort chimerism 02/03/25 CD3 40% donor DNA and CD33 100% donor DNA. Bone marrow 100% donor DNA. Peripheral blood sort chimerism 03/10/25 CD3 60% donor DNA and CD33 100% donor DNA. 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 Mycophenolate discontinued on day+35. Tacrolimus discontinued on 04/17/25. Antifungal prophylaxis: No history of invasive fungal infection noted in medical record; has not received prophylaxis in the past, anticipate posaconazole prophylaxis. Covered briefly with micafunginearly post transplant in setting of mucositis. Posaconazole resumed 12/27/24. Pneumocystis prophylaxis: Toxoplasmosis seropositive. Atovaquone used initially due to low blood counts. Prophylaxis with Bactrim started on 01/09/25. Pneumococcal prophylaxis: Prophylaxis with penicillin. Negative penicillin skin testing and 2-step amoxicillin challenge. Antiviral prophylaxis: Recipient and donor CMV seronegative. Prophylaxis with acyclovir. Bone health: No history of osteoporosis/osteopenia prior to transplant. Total 25-hydroxy vitamin D level was 18 ng/mL on 11/04/24, not taking cholecalciferol at pretransplant. No pretransplant bone density scan noted. Vitamin D3 5000 units daily 12/03/24, transitioned to 2000 units daily on 01/09/25 for nausea. Lipid screening: No history of hyperlipidemia prior to transplant. Pretransplant lipid panel on 06/23/24 showed total cholesterol 157 mg/dL, triglycerides 85 mg/dL, HDL 40 mg/dL. Thyroid screening: No history of thyroid replacement therapy. Pretransplant TSH on 11/04/24 was 2.9milliunits/L. Renal function: Corrected iothalamate clearance was 118 mL/min/1.73 m2 BSA on 11/03/24 with Cr of 0.73 mg/dL on 11/04/24. Liver injury prophylaxis: Ursodiol prophylaxis discontinued 04/21/25. Depression and anxiety: Taking aripiprazole 5 mg daily, duloxetine 120 mg daily at pretransplant. Followed by psychiatry post-transplant. Abilify increased to 10 mg daily on 12/02/24. She discontinuedduloxetine and aripiprazole 12/19/24 due to severe mucositis. She subsequently had symptoms of head/cold intolerance and anxiety thought possibly a withdrawal syndrome. Symptoms improved with restart o f duloxetine and aripiprazole approximately 12/25/24. Labial burning with urination: Resolved with hydrocortisone, discontinued on 01/08/25. Urine culturepositive for enterobacter cloacae, s/p ciprofloxacin 01/10/25-01/17/25. OBJECTIVE Labs were reviewed. ASSESSMENT / PLAN 1. Medication reconciliation Medication reconciliation was accomplished by review of all medications, prescription and non-prescription including vitamins and supplements from memory, medication bottles, and electronic health record (EHR) medication list. These were reviewed and reconciled with the patient. She reports that she uses melatonin 5 mg nightly and gabapentin 300 mg AM and 300 mg PM. Her medication list was updated accordingly. 2. GVHD monitoring Ms. Martinez denies rash, nausea, or diarrhea. She reports ongoing fatigue which she attributes more to her pain and neuropathy. Her Cr is 0.8 mg/dL, LFTs minimally changed with alkaline phosphatase 119 units/L, AST 49 units/L, ALT 62 units/L and total bilirubin of 0.2 mg/dL; she is no longer on ursodiol. Her BP was 135/94 mm Hg today on no antihypertensives. 3. Electrolyte monitoring Her magnesium was 2 mg/dL and potassium was 4.5 mmol/L, off of supplementation. 4. Neuropathy/Pain Ms. Martinez is following with palliative for ongoing neuropathy. She continues on duloxetine 120 mg daily, gabapentin 300 mg AM and 300 mg PM, and hydromorphone solution 0.5 mL as needed most nights. She reports the gabapentin is not alleviating symptoms and plans to discuss optimizing dosing strategy or transitioning to pregabalin with palliative. She also reports using lorazepam 0.5 mg at bedtime as needed for anxiety approximately three times per week. 5. Antimicrobial Prophylaxis Continues on acyclovir, penicillin, posaconazole, and Bactrim for prophylaxis. Could consider discontinuation of posaconazole at the discretion of provider, as Ms. Martinez is off of immunosuppression. Monitoring CD4 level to determine necessity of Bactrim prophylaxis. Once CD4 >200, may consider discontinuation of Bactrim. CD4 on 04/29/25 is 121 cells/mcL. 6. Requested Prescriptions Refills were provided for duloxetine and penicillin per patient request. [facility] Patient and/or caregiver(s) expressed understanding of, and agreement with plan of care and was notprovided with a summary of these recommendations as this was deferred to collaborating provider. Total time spent was 15 minutes, with more than 50% of the time spent on counseling, coordination of care and patient education. Follow-up with pharmacist was not scheduled at this time . Pharmacy follow-up will be scheduled by provider when convenient. [1] Allergies Allergen Reactions Oxycodone GI intolerance Severe nausea Bupropion Edema (Reselect Reaction) Grapefruit Other (see comments) Drug-drug interaction with Bosulif (bosutinib); This had also been noted w/ prior therapy which patient is no longer taking (Tasigna (nilotinib)). [2] Current Outpatient Medications Medication Sig Dispense Refill acyclovir (Zovirax) 400 mg tablet Take 1 tablet (400 mg total) by mouth 2 (two) times a day. 60 tablet 11 ARIPiprazole (Abilify) 10 mg tablet Take 1 tablet (10 mg total) by mouth daily. Dose change 12/02/2024 30 tablet 5 cholecalciferol (Vitamin D3) 50 mcg (2,000 Unit) tablet Take 50 mcg by mouth daily. DULoxetine (Cymbalta) [address] capsule Take 2 capsules (120 mg total) by mouth daily. 120 capsule 5 gabapentin (Neurontin) 300 mg capsule Take 1 capsule (300 mg total) by mouth as directed. 04/16 300 mg in am 300 mg at lunch and 600 mg at bedtime HYDROmorphone (Dilaudid) 1 mg/mL liquid Take 0.5 mL (0.5 mg total) by mouth daily as needed for pain Indication: Chronic Pain/Nonacute Pain. 10 mL 0 LORazepam (Ativan) 0.5 mg tablet Take 1 tablet (0.5 mg total) by mouth at bedtime as needed for anxiety. 30 tablet 0 melatonin 3 mg tablet Take 1 tablet (3 mg total) by mouth at bedtime. 60 tablet 0 penicillin V potassium (Veetids) 500 mg tablet Take 1 tablet (500 mg total) by mouth 2 (two) times a day. Start on Day -1 (12/09/24). 60 tablet 11 posaconazole (NoxafiL) [address] tablet Take 3 tablets (300 mg total) by mouth daily. 90 tablet 0 sulfamethoxazole-trimethoprim (Bactrim) 400-80 mg per tablet Take 1 tablet by mouth daily. 60 tablet 1 No current facility-administered medications for this visit. [3] Family History Problem Relation Name Age of Onset Hypertension Mother gabrielle besttcher Depression Mother gabrielle jay Anxiety disorder Mother gabrielle besttcher Cystic fibrosis Brother No Known Problems Son Rashid Depression Brother shena besttcher Anxiety disorder Brother shena besttcher Psychiatric Maternal Grandmother nancy Breast cancer Maternal Grandmother nancy Psychiatric Maternal Grandfather silvia [facility] Skin cancer Paternal Grandfather Berkley vega [4] Past Medical History: Diagnosis Date Amblyopia Bilateral Anemia Anxiety Generalized Disorder Depressive Disorder Fibromyalgia 2020 Headache Unspecified Irritable Bowel Syndrome, Unspecified 2015 Leukemia Migraine Headache Other Injury Of Unspecified Body Region Strabismus [5] Social History Tobacco Use Smoking status: Never Smokeless tobacco: Never Vaping Use Vaping status: never used Substance Use Topics Alcohol use: Yes Comment: social Drug use: Never [6] Past Surgical History: Procedure Laterality Date EYE SURGERY Right 1989 INSERTION CENTRAL VENOUS LINE N/A 12/03/2024 Procedure: INSERTION CENTRAL VENOUS LINE, [place]; Surgeon: Brianna Hernandez M.D., Ph.D.; Location: [facility] [7] Patient Active Problem List Diagnosis 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) Chronic Migraine Dizziness Depression Major Recurrent Moderate (HCC) Anxiety Generalized Disorder 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 at 04/30/2025 8:01 AM CDT Associated attestation - Nelli Parker Pharm.DKatalina, R.Ph. - 04/30/2025 8:01 AM CDT Visit with Ms. Martinez completed in conjunction with PGY1 Internship Amber Diego. I agree with findings and recommendations included in her note. Per CPA, I assisted in sending refills for duloxetine, penicillin. Nelli Parker Clinical Pharmacist documented in this encounter Plan of Treatment Upcoming Encounters Date Type Department Care Team (Latest Contact Info) Description 05/29/2025 11:59 PM CDT Anesthesia Event Division of Gastroenterology in [place], [place] [address] [place] [phone] Bri Valenzuela M.D. [address] [place] [phone] 06/01/2025 1:15 PM CDT Appointment Division of Gastroenterology in [place], [place] [address] [place] [phone] Lito Pollock P.A.-C. [address] [place], [place] [phone] Jeaneth Núñez M.B.BKatalinaS., M.S. [address] [place] [phone] 06/03/2025 7:30 AM CDT Appointment Department of Laboratory Medicine in [place], [place] 300 [facility] [place] [phone] Lito Pollock P.A.-C. [address] [place] [phone] 06/03/2025 10:00 AM CDT Telemedicine [facility] in [place], [place] [address] [place] [phone] Tessa Jesus APRN, C.N.P., D.N.P. [address] [place] [phone] 06/10/2025 1:20 PM CDT Nurse Only Section of Infectious Diseases in [place], [place] [address] [place] [phone] Jessica Rousseau M.B.B.S. [address] [place] [phone] 06/15/2025 9:45 AM CDT Appointment [facility] in [place], [place] [address] [place] [phone] Jessica Rousseau M.B.B.S. [address] [place] [phone] 06/24/2025 12:30 PM CDT Clinical Communication Virtual Review in [place], [place] 200 [place] [phone] 06/25/2025 8:10 AM CDT Lab Department of Laboratory Medicine and Pathology, [facility], in [place], [place] [address] [place] [phone] Tessa Jesus APRN, C.N.P., D.N.P. [address] [place] [phone] 06/25/2025 9:00 AM CDT Office Visit [facility] in [place], [place] [address] [place] [phone] Tessa Jesus APRN, C.N.Delbert, D.N.P. [address] [place] [phone] 06/25/2025 9:30 AM CDT Nurse Only [facility] in [place], [place] [address] [place] [phone] Tessa Jesus APRN, C.NDustin, D.N.P. [address] [place] [phone] 06/25/2025 10:30 AM CDT Office Visit [facility] in [place], [place] [address] [place] [phone] Jessica Rousseau M.B.B.S. [address] [place] [phone] 06/26/2025 10:00 AM CDT Telemedicine Department of Palliative Care in [place], [place] [address] [place] [phone] Isabel Sellers M.D. [address] [place] [phone] Debbie Shay M.D. 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 [address] [place] [phone] PCP - General Family Medicine 04/25/23 documented as of this encounter
--- OUTSIDE RECORDS SUMMARY | 2025-04-29 10:00 | XMS_ITS | Encounter Summary ---
Author Organization [facility] Address [address] [place] [address] Care Team Providers Care Aeronautical Engineer Name Role Phone Renzo Andres M.D. Primary Care Provider [phone] Reason for Referral * Outpatient (Routine) - Closed Specialty Diagnoses / Procedures Referred By Contac t Referred To Contact Pharmacy Lito Pollock P.A.-C. [address] [place] [phone] Phone: tel: fax: [facility] Referral ID Status Reason Start Date Expiration Date Visits Re quested Visits Authorized [id number] Closed 04/29/2025 10/29/2026 1 1 Scheduling Instructions Please schedule with pharmacist for 30 minutes. Patient type: Allo Over 100 Visit Type: Return Scheduling Preferences Option 1: Primary MD only/RN Option 2: BMT MD/Jt Fellow-RN Other Scheduling Instructions: Please schedule follow up with Pharm/RN/Provider and allo labs in 3 weeks. Thanks! Primary MD: Soham RN Team: Rst Bmt Team [place] * Transplant (Routine) - Closed Specialty Diagnoses / Procedures Referred By Contac t Referred To Contact Transplant Lito Pollock P.A.-C. [address] [place] [phone] Phone: tel: fax: [facility] Referral ID Status Reason Start Date Expiration Date Visits Re quested Visits Authorized [id number] Closed 04/29/2025 10/29/2026 1 1 Scheduling Instructions Please schedule with BMT MD for 30 minutes. Patient type: Allo Over 100 Visit Type: Return Scheduling Preferences Option 1: Primary MD only/RN Option 2: BMT MD/Jt Fellow-RN Other Scheduling Instructions: Please schedule follow up with Pharm/RN/Provider and allo labs in 3 weeks. Thanks! Primary MD: Soham BERGER Team: [facility] Bmt Team [place] * Transplant (Routine) - Closed Specialty Diagnoses / Procedures Referred By Contac t Referred To Contact Transplant Lito Pollock P.A.-C. [address] [place] [phone] Phone: tel: fax: [facility] Referral ID Status Reason Start Date Expiration Date Visits Re quested Visits Authorized [id number] Closed 04/29/2025 10/29/2026 1 1 Scheduling Instructions Please schedule with RNCC for 30 min Patient type: Allo Over 100 Visit Type: Return Scheduling Preferences Option 1: Primary MD only/RN Option 2: BMT MD/Jt Fellow-RN Other Scheduling Instructions: Please schedule follow up with Pharm/RN/Provider and allo labs in 3 weeks. Thanks! Primary MD: Soham RN Team: t Bmt Team [place] Reason for Visit * Reason Comments Nurse Visit * Transplant (Routine) - Closed Specialty Diagnoses / Procedures Referred By Contac t Referred To Contact Transplant Becky Hernandez APRN, C.N.P., D.N.P. [address] [place] [phone] Phone: tel: fax: [facility] Referral ID Status Reason Start Date Expiration Date Visits Re quested Visits Authorized [id number] Closed 04/08/2025 10/08/2026 1 1 Encounter Details Date Type Department Care Team (Latest Contact Info) Description 04/29/2025 10:00 AM CDT [facility] [place], [place] [address] [place] [phone] Becky Hernandez APRN, C.N.P., D.N.P. [address] [place] [phone] Lito Pollock P.A.-C. [address] [place] [phone] Jesika Pacheco R.N., BMT-CN [address] [place] [phone] 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 [...] = 0.6 oz pur e alcohol) social [facility] Utilities Answer Date Recorded In the past 12 months has [facility] [employer], gas, oil, or water [employer] threatened to shut off services in your [...] Sex Assigned at Female 12/26/2018 8:37 PM BUSINESS OFFICE REPRESENTATIVE Legal Sex Female 2:43 PM BUSINESS OFFICE REPRESENTATIVE Gender Identity Female 12/26/2018 8:37 PM BUSINESS OFFICE REPRESENTATIVE Sexual Orientation Choose not to disclose 2020 3:46 PM CDT documented as of this encounter Progress Notes * Lito Pollock P.A.-C. - 04/29/2025 10:00 AM CDT TRANSPLANT PHYSICIAN Dr. Jessica Rousseau, pager [phone] CHIEF COMPLAINT/REASON FOR VISIT Ms. Radha Martinez [...] reticulin fibrosis noted. 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 The BCR-ABL1 P [...] t(9;22) metaphases. 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 06/17/2024: feeling quite symptomatic since the [...] Access Camargo CVC placed on 12/03/24 by [facility]. Social Work Seen and cleared on 10/29/24 [...] prophylaxis: Ursodiol 600 mg two times daily. 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 She denies any mghfp-edcbqx-xkfi disease symptoms including dry eyes, dry mouth, [...] donor DNA and approximately 40% recipient DNA. [id number]% donor DNA and approximately 0% recipient DNA. [...] right eye. Wears glasses. - Followed by [facility] in [place], [place]. - Patient will notify team if any vision changes. # Blood Products # TACO - Requires infusion of platelets at a slower rate # Disposition - Follow-up labs, pharmacy, RN/provider in three weeks. - Local labs at [facility] in 10 days. Lito Pollock P.A.-C. * [...] Local labs once in 10 days at [facility]. Future BMT Appointments: BMT return [...] CDT Anesthesia Event Division of Gastroenterology in [place], [place] [address] [place] [phone] Bri Valenzuela M.D. [address] [place] [phone] 06/01/2025 1:15 PM CDT Appointment Division of Gastroenterology in [place], [place] [address] [place] [phone] Lito Pollock P.A.-C. [address] [place] [phone] Jeaneth Núñez M.B.B.S., M.S. [address] [place] [phone] 06/03/2025 7:30 AM CDT Appointment Department of Laboratory Medicine in [address] [phone] Lito Pollock P.A.-C. [address] [place] [phone] 06/03/2025 10:00 AM CDT Telemedicine [facility] in [place], [place] [address] [place] [phone] Tessa Jesus, KARON, C.N.P., D.N.P. [address] [place] [phone] 06/10/2025 1:20 PM CDT Nurse Only Section of Infectious Diseases in [place], [place] [address] [place] [phone] Jessica Rousseau M.B.B.S. [address] [place] [phone] 06/15/2025 9:45 AM CDT Appointment Outpatient Procedure Center in [place], [place] [address] [place] [phone] Jessica Rousseau M.B.B.S. [address] [place] [phone] 06/24/2025 12:30 PM CDT Clinical Communication Virtual Review in [place], [place] 200 [place] [phone] 06/25/2025 8:10 AM CDT Lab Department of Laboratory Medicine and Pathology, [facility], in [place], [place] [address] [place] [phone] Tessa Jeuss APRN, C.N.P., D.N.P. [address] [place] [phone] 06/25/2025 9:00 AM CDT [facility] in [place], [place] [address] [place] [phone] Tessa Jesus APRN, C.N.P., D.N.P. [address] [place] [phone] 06/25/2025 9:30 AM CDT Nurse Only [facility] in [place], [place] [address] [place] [phone] Tessa Jesus APRN, C.N.P., D.N.P. [address] [place] [phone] 06/25/2025 10:30 AM CDT Office Visit Pedro sanchez [facility] for Transplantation and Clinical Regeneration in [place], [place] [address] [place] [phone] Jessica Rousseau M.B.B.S. [address] [place] [phone] 06/26/2025 10:00 AM CDT Telemedicine Department of Palliative Care in [place], [place] [address] [place] [phone] Isabel Sellers M.D. [address] [place] [phone] Debbie Shay M.D. [address] [place] [phone] Scheduled Referrals Name Type Priority Associated Diagnoses [...] / Quant, Plasma (05/20/2025 8:48 AM CDT) [facility] CMV DNA Detect/Quant, P Undetected Undetected IU/mL 05/20/2025 9:17 PM CDT [facility] Comment: Result in log IU/mL is Undetected. ----ADDITIONAL INFORMATION---- The quantification range of this assay is 35 to 10,000,000 IU/mL (1.54 log to 7.00 log IU/mL). Testing was performed using the lucrecia CMV test ([employer] Blood (Blood, Venous) 05/20/2025 8:48 AM CDT 05/20/2025 11:04 AM CDT us Lito Pollock P.A.-C. LAB MICROBIOLOGY - BLOOD ORDER JANES Final Result [facility] [address] [place] [address] [facility] [address] [place] [address] [place] [address] * LD (Lactate Dehydrogenase) (05/20/2025 8:48 AM CDT) [facility] LD 173 122 - 222 U/L 05/20/2025 10:11 AM CDT DTL Blood (Blood, Venous) 05/20/2025 8:48 AM CDT 05/20/2025 9:49 AM CDT us Lito Pollock P.A.-C. LAB BLOOD NON ADD-ON Final Res ult Performing Organization Address City/[facility]/ZIP Co de Phone Number [facility] [address] 200 [place] [address] * Sodium (05/20/2025 8:48 AM CDT) [facility] Sodium, S 140 135 - 145 mmol/L 05/20/2025 10:03 AM CDT DT Blood (Blood, Venous) 05/20/2025 8:48 AM CDT 05/20/2025 9:27 AM CDT us Lito Pollock P.A.-C. LAB BLOOD ADD-ON Final Result [facility] [address] [place] [address] * Potassium (05/20/2025 8:48 AM CDT) [facility] Potassium, S 4.0 3.6 - 5.2 mmol/L 05/20/2025 10:03 AM CDT DTL Blood (Blood, Venous) 05/20/2025 8:48 AM CDT 05/20/2025 9:27 AM CDT Lito Ferrer-C. LAB BLOOD ADD-ON Final Result [facility] [address] 200 [place] [address] * Magnesium (05/20/2025 8:48 AM CDT) Magnesium, S 2.0 1.7 - 2.3 mg/dL 05/20/2025 10:03 AM CDT DTL Blood (Blood, Venous) 05/20/2025 8:48 AM CDT 05/20/2025 9:27 AM CDT Lito Ferrer-C. LAB BLOOD ADD-ON Final Result Performing Organization Address City/[facility]/ZIP Co de Phone Number [facility] [address] 200 [place] [address] * (ABNORMAL) Glucose, Fasting (05/20/2025 8:48 AM CDT) Glucose, P 158(H) 70 - 100 mg/dL 05/20/2025 10:00 AM CDT DTL Last Intake 1 hr 05/20/2025 9:27 AM CDT DTL Blood (Blood, Venous) 05/20/2025 8:48 AM CDT 05/20/2025 9:27 AM CDT Lito Ferrer-C. LAB BLOOD NON ADD-ON Final Res ult [facility] [address] DTL [facility] 200 [place] [address] * Creatinine with Estimated GFR (05/20/2025 8:48 AM CDT) Pathologist [facility] Creatinine 0.90 0.59 - 1.04 mg/dL 05/20/2025 10:03 AM CDT DTL Estimated GFR (eGFR) 85 >=60 mL/min/BSA 05/20/2025 10:03 AM CDT DTL Comment: Estimated GFR calculated using the 2020 CKD_EPI creatinine equation. Blood (Blood, Venous) 05/20/2025 8:48 AM CDT 05/20/2025 9:27 AM CDT us Lito Pollock P.A.-C. LAB BLOOD ADD-ON Final Result [facility] [address] 200 [place] [address] * (ABNORMAL) CBC no call back, reflex T/S HGB <8 (05/20/2025 8:48 AM CDT) Pathologist [facility] Hemoglobin 11.8 11.6 - 15.0 g/dL 05/20/2025 [...] 8:48 AM CDT 05/20/2025 9:10 AM CDT us Lito Pollock P.A.-C. LAB BLOOD NON ADD-ON Final Res ult Performing Organization Address City/[facility]/ZIP Co de Phone Number [facility] [address] [facility] [address] 200 [place] [address] * Calcium, Total (05/20/2025 8:48 AM CDT) [facility] Calcium, Total, S 9.2 8.6 - 10.0 mg/dL 05/20/2025 10:03 AM CDT DTL Blood (Blood, Venous) 05/20/2025 8:48 AM CDT 05/20/2025 9:27 AM CDT us Lito SladeC. LAB BLOOD ADD-ON Final Result [facility] [address] [facility] 200 [place] [address] * BUN (Blood Urea Nitrogen) (05/20/2025 8:48 AM CDT) BUN (Blood Urea Nitrogen), S 9 6 - 21 mg/dL 05/20/2025 10:03 AM CDT DTL Blood (Blood, Venous) 05/20/2025 8:48 AM CDT 05/20/2025 9:27 AM CDT Lito Pollock P.A.-C. LAB BLOOD ADD-ON Final Result [facility] [address] DTL [facility] 200 [place] [address] * Bilirubin, Total (05/20/2025 8:48 AM CDT) Bilirubin, Total, P 0.3 0.0 - 1.2 mg/dL 05/20/2025 9:22 AM CDT METH Blood (Blood, Venous) 05/20/2025 8:48 AM CDT 05/20/2025 9:01 AM CDT Lito Pollock P.A.-C. LAB BLOOD ADD-ON Final Result Performing Organization Address City/[facility]/ZIP Co de Phone Number [facility] 200 [place] [address], [facility] METH [facility] 200 [place] [address] * AST (Aspartate Aminotransferase) (05/20/2025 8:48 AM CDT) Aspartate Aminotransferase (AST), P 26 8 - 43 U/L 05/20/2025 9:22 AM CDT METH Blood (Blood, Venous) 05/20/2025 8:48 AM CDT 05/20/2025 9:01 AM CDT Lito Pollock P.A.-C. LAB BLOOD ADD-ON Final Result [facility] 200 [place] [address], [facility] METH [facility] 200 [place] [address] * ALT (Alanine Aminotransferase) (05/20/2025 8:48 AM CDT) Alanine Aminotransferase (ALT), S 33 7 - 45 U/L 05/20/2025 10:03 AM CDT DTL Blood (Blood, Venous) 05/20/2025 8:48 AM CDT 05/20/2025 9:27 AM CDT Lito Pollock P.A.-C. LAB BLOOD ADD-ON Final Result [facility] 200 [place], [place] [phone] [place] [address] 200 [place] [address] * Alkaline Phosphatase (05/20/2025 8:48 AM CDT) Alkaline Phosphatase, S 103 35 - 104 U/L 05/20/2025 10:03 AM CDT DTL Blood (Blood, Venous) 05/20/2025 8:48 AM CDT 05/20/2025 9:27 AM CDT Lito Pollock P.A.-C. LAB BLOOD ADD-ON Final Result [facility] 200 [place], [place] [phone] [place] [address] 200 [place] [address] * Albumin (05/20/2025 8:48 AM CDT) Albumin, S 4.2 3.5 - 5.0 g/dL 05/20/2025 10:03 AM CDT DTL Blood (Blood, Venous) 05/20/2025 8:48 AM CDT 05/20/2025 9:27 AM CDT Lito Pollock P.A.-C. LAB BLOOD ADD-ON Final Result [facility] [address] [place] [address], [place] [facility] [address] [place] [address] * CBC with Differential, Blood (05/08/2025 12:35 [...] BLOOD ADD-ON Final Result Performing Organization Address [facility] Co de Phone Number [facility] [address] [place] [address], [place] OWAT [facility] [place] [address] [place] [address] * CMV DNA Detect / Quant, Plasma (05/08/2025 12:35 PM CDT) CMV DNA Detect/Quant, P Undetected Undetected IU/mL 05/10/2025 4:10 PM CDT [facility] Comment: Result in log IU/mL is Undetected. ----ADDITIONAL INFORMATION---- The quantification range of this assay is 35 to 10,000,000 IU/mL (1.54 log to 7.00 log IU/mL). Testing was performed using the lucrecia CMV test ([employer] Blood (Blood, Venous) 05/08/2025 12:35 PM CDT 05/09/2025 7:46 AM CDT Lito Pollock P.A.-C. LAB MICROBIOLOGY - BLOOD ORDER JANES Final Result Performing Organization Address [facility] Co de Phone Number [facility] [address] [place] [address] [facility] [address] [place] [address] [place] [address] * LD (Lactate Dehydrogenase) (05/08/2025 12:35 PM CDT) Pathologist [facility] Lactate Dehydrogenase (LD), P 158 122 - 222 U/L 05/08/2025 9:58 PM CDT [facility] Blood (Blood, Venous) 05/08/2025 12:35 PM CDT 05/08/2025 9:37 PM CDT Lito Pollock P.A.-C. LAB BLOOD NON ADD-ON Final Res ult Performing Organization Address City/[facility]/ZIP Co de Phone Number [facility] [address] [place] [address], [facility] AUST [facility] [address] [place] [address] * Sodium (05/08/2025 12:35 PM CDT) Sodium, P 139 135 - 145 mmol/L 05/08/2025 3:08 PM CDT OWAT Blood (Blood, Venous) 05/08/2025 12:35 PM CDT 05/08/2025 2:36 PM CDT us Lito Pollock P.A.-C. LAB BLOOD ADD-ON Final Result Performing Organization Address [facility] Co de Phone Number [facility] [address] [place] [address], [place] OW[place] [facility] [place] [address] [place] [address] * Potassium (05/08/2025 12:35 PM CDT) Potassium, P 4.4 3.6 - 5.2 mmol/L 05/08/2025 3:08 PM CDT OWAT Blood (Blood, Venous) 05/08/2025 12:35 PM CDT 05/08/2025 2:36 PM CDT us Lito Pollock P.A.-C. LAB BLOOD ADD-ON Final Result Performing Organization Address City/[facility]/ZIP Co de Phone Number [facility] [address] [place] [address], [place] [facility] [facility] [place] [address] [place] [address] * Magnesium (05/08/2025 12:35 PM CDT) Magnesium, P 2.2 1.7 - 2.3 mg/dL 05/08/2025 3:08 PM CDT OW[facility] Blood (Blood, Venous) 05/08/2025 12:35 PM CDT 05/08/2025 2:36 PM CDT Lito Pollock P.A.-C. LAB BLOOD ADD-ON Final Result Performing Organization Address City/[facility]/ZIP Co de Phone Number [facility] [address] [place] [address], [place] OW[facility] [place] [address], [place] [address] * (ABNORMAL) Glucose, Fasting (05/08/2025 12:35 PM CDT) Glucose, P 126(H) 70 - 100 mg/dL 05/08/2025 3:10 PM CDT OWAT Last Intake 1 hr 05/08/2025 2:34 PM CDT OW[facility] Blood (Blood, Venous) 05/08/2025 12:35 PM CDT 05/08/2025 2:34 PM CDT Lito Pollock P.A.-C. LAB BLOOD NON ADD-ON Final Res ult Performing Organization Address City/[facility]/ZIP Co de Phone Number [facility] [address] [place] [address], [place] OW[facility] [place] [address] [place] [address] * Creatinine with Estimated GFR (05/08/2025 12:35 PM CDT) Creatinine 0.78 0.59 - 1.04 mg/dL 05/08/2025 3:08 PM CDT OWAT Estimated GFR (eGFR) >90 >=60 mL/min/BSA 05/08/2025 3:08 PM CDT OW[facility] Comment: Estimated GFR calculated using the 2020 CKD_EPI creatinine equation. Blood (Blood, Venous) 05/08/2025 12:35 PM CDT 05/08/2025 2:36 PM CDT Lito Pollock P.A.-C. LAB BLOOD ADD-ON Final Result Performing Organization Address City/[facility]/ZIP Co de Phone Number [facility] [address] [place] [address], [place] [facility] [place] [address] [place] [address] * Calcium, Total (05/08/2025 12:35 PM CDT) Calcium, Total, P 9.4 8.6 - 10.0 mg/dL 05/08/2025 3:08 PM CDT OWAT Blood (Blood, Venous) 05/08/2025 12:35 PM CDT 05/08/2025 2:36 PM CDT us Lito Pollock P.A.-C. LAB BLOOD ADD-ON Final Result Performing Organization Address [facility]/ZIP Co de Phone Number [facility] [address] [place] [address], [place] [facility] [place] [address] [place] [address] * BUN (Blood Urea Nitrogen) (05/08/2025 12:35 PM CDT) BUN (Blood Urea Nitrogen), P 9 6 - 21 mg/dL 05/08/2025 3:08 PM CDT OWAT Blood (Blood, Venous) 05/08/2025 12:35 PM CDT 05/08/2025 2:36 PM CDT us Lito Pollock P.A.-C. LAB BLOOD ADD-ON Final Result Performing Organization Address City/[facility]/ZIP Co de Phone Number [facility] [address] [place] [address], [place] [facility] [place] [address] [place] [address] * Bilirubin, Total (05/08/2025 12:35 PM CDT) Bilirubin, Total, P 0.2 0.0 - 1.2 mg/dL 05/08/2025 3:08 PM CDT OWAT Blood (Blood, Venous) 05/08/2025 12:35 PM CDT 05/08/2025 2:36 PM CDT Lito Pollock P.A.-C. LAB BLOOD ADD-ON Final Result Performing Organization Address [facility] Co de Phone Number [facility] [address] [place] [address], [place] [facility] [place] [address] [address] * AST (Aspartate Aminotransferase) (05/08/2025 12:35 PM CDT) Aspartate Aminotransferase (AST), P 37 8 - 43 U/L 05/08/2025 3:08 PM CDT OWAT Blood (Blood, Venous) 05/08/2025 12:35 PM CDT 05/08/2025 2:36 PM CDT Lito Pollock P.A.-C. LAB BLOOD ADD-ON Final Result Performing Organization Address [facility] de Phone Number [facility] [address] [place] [address], [place] AT [facility] [place] [address] [place] [address] * ALT (Alanine Aminotransferase) (05/08/2025 12:35 PM CDT) Alanine Aminotransferase (ALT), P 40 7 - 45 U/L 05/08/2025 3:08 PM CDT OWAT Blood (Blood, Venous) 05/08/2025 12:35 PM CDT 05/08/2025 2:36 PM CDT Lito Pollock P.A.-C. LAB BLOOD ADD-ON Final Result Performing Organization Address City/[facility] Co de Phone Number [facility] [address] [place] [address], [facility] OWAT [facility] [place] [address] [place] [address] * Alkaline Phosphatase (05/08/2025 12:35 PM CDT) Alkaline Phosphatase, P 93 35 - 104 U/L 05/08/2025 3:08 PM CDT OWAT Blood (Blood, Venous) 05/08/2025 12:35 PM CDT 05/08/2025 2:36 PM CDT Lito SladeC. LAB BLOOD ADD-ON Final Result Performing Organization Address [facility]/ZIP Co de Phone Number [facility] [address] [place] [address], [place] OW[facility] [place] [address] [place] [address] * Albumin (05/08/2025 12:35 PM CDT) Albumin, P 4.3 3.5 - 5.0 g/dL 05/08/2025 3:08 PM CDT OWAT Blood (Blood, Venous) 05/08/2025 12:35 PM CDT 05/08/2025 2:36 PM CDT us Lito SladeC. LAB BLOOD ADD-ON Final Result [facility] [address] [place] [address], [facility] [place] [address] [place] [address] documented in this encounter Visit Diagnoses Diagnosis [...] Total Score: 2 12/10/19 25 2:46 PM BUSINESS OFFICE REPRESENTATIVE documented as of this encounter Care Teams Aeronautical Engineer Relationship Specialty Start Date End Date Renzo Andres M.D. [address] [place] [phone] PCP - General Family Medicine 04/25/23 documented as of this encounter
--- OUTSIDE RECORDS SUMMARY | 2025-05-08 10:30 | XMS_ITS | Encounter Summary ---
Author Organization [facility] Address [address] [place] [address] Care Team Providers Care Purse Maker Name Role Phone Renzo Andres M.D. Primary Care Provider [phone] Encounter Details Date Type Department Care Team (Latest Contact Info) Description 05/08/2025 10:30 AM CDT - 05/08/2025 11:59 PM CDT Hospital Encounter Department of Laboratory Medicine in [address] [phone] Lito Pollock P.A.-C. 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 I have a [facility] place to live 12/19/2024 Education Answer Date Recorded What is the highest level of school you have completed or the highest degree you have received? Some college, no degree 04/24/2019 Comments No Sex and Gender Information Value Date Recorded Sex Assigned at Female 12/26/2018 8:37 PM [employer] Legal Sex Female 2:43 PM [employer] Gender Identity Female 12/26/2018 8:37 PM [employer] Sexual Orientation Choose not to disclose 2020 [...] (two) times a day. 60 tablet 11 04/29/2025 posaconazole (NoxafiL) [address] tabletIndication s: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),Transplant Bone Marrow Allogeneic (HCC) Take 3 tablets (300 mg total) by mouth daily. 90 tablet 04/15/2025 gabapentin (Neurontin) 300 mg capsule Take 1-2 [...] needed for anxiety. 30 tablet 04/15/2025 05/29/2025 sulfamethoxazole -trimethoprim (Bactrim) 400-80 mg per tabletIndication s:Transplant Bone Marrow Allogeneic (HCC),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) Take 1 tablet by mouth daily. 60 tablet 1 04/15/2025 05/13/2025 documented as of this encounter Plan of Treatment Upcoming Encounters Date Type Department Care Team (Latest Contact Info) Description 05/29/2025 11:59 PM CDT Anesthesia Event Division of Gastroenterology in [place], [place] [address] [place] [phone] Bri Valenzuela M.D. [address] [place] [phone] 06/01/2025 1:15 PM CDT Appointment Division of Gastroenterology in [place], [place] [address] [place] [phone] Lito Pollock P.A.-C. [address] [place] [phone] Jeaneth Núñez M.B.B.S., M.S. [address] [place] [address] [phone] 06/03/2025 7:30 AM CDT Appointment Department of Laboratory Medicine in [place], [place] [address] [place] [phone] Lito Pollock P.A.-C. [address] [place] [phone] 06/03/2025 10:00 AM CDT Telemedicine [facility] in [place], [place] [address] [place] [address] [phone] Tessa Jesus, KARON, C.N.P., D.N.P. [address] [place] [phone] 06/10/2025 1:20 PM CDT Nurse Only Section of Infectious Diseases in [place], [place] [address] [place] [address] [phone] Jessica Rousseau M.B.B.S. [address] [place] [phone] 06/15/2025 9:45 AM CDT Appointment Outpatient Procedure Center in [place], [place] [address] [place] [phone] Jessica Rousseau M.B.B.S. [address] [place] [phone] 06/24/2025 12:30 PM CDT Clinical Communication Virtual Review in [place], [place] 200 [place] [phone] 06/25/2025 8:10 AM CDT Lab Department of Laboratory Medicine and Pathology, [facility] in [place], [place] [address] [place] [phone] Tessa Jesus APRN, C.N.P., D.N.P. [address] [place] [phone] 06/25/2025 9:00 AM CDT [facility] [place], [place] [address] [place] [phone] Tessa Jesus APRN, C.N.P., D.N.P. [address] [place] [phone] 06/25/2025 9:30 AM CDT Nurse Only [facility] in [place], [place] [address] [place] [phone] Tessa Jesus APRN, C.N.P., D.N.P. [address] [place] [phone] 06/25/2025 10:30 AM CDT Office Visit [facility] in [place], [place] [address] [place] [phone] Jessica Rousseau M.B.B.S. [address] [place] [address] [phone] 06/26/2025 10:00 AM CDT Telemedicine Department of Palliative Care in [place], [place] [address] [place] [phone] Isabel Sellers M.D. [address] [place] [phone] Debbie Shay M.D. [address] [place] [address] [phone] documented as of this encounter Procedures Procedure [...] Pollock P.A.-C. LAB BLOOD ADD-ON Final Result [facility] [address] [place] [address], [place] [facility] [place] [address] [place] [address] * CMV DNA Detect / Quant, Plasma (05/08/2025 12:35 PM CDT) CMV DNA Detect/Quant, P Undetected Undetected IU/mL 05/10/2025 4:10 PM CDT [facility] Comment: Result in log IU/mL is Undetected. ----ADDITIONAL INFORMATION---- The quantification range of this assay is 35 to 10,000,000 IU/mL (1.54 log to 7.00 log IU/mL). Testing was performed using the lucrecia CMV test ([employer] Blood (Blood, Venous) 05/08/2025 12:35 PM CDT 05/09/2025 7:46 AM CDT us Lito Pollock P.A.-C. LAB MICROBIOLOGY - BLOOD ORDER JANES Final Result Performing Organization Address City/[facility]/ZIP Co de Phone Number [facility] [address] [place] [address] [facility] [address] [place] [address] [place] [address] * LD (Lactate Dehydrogenase) (05/08/2025 12:35 PM CDT) Lactate Dehydrogenase (LD), P 158 122 - 222 U/L 05/08/2025 9:58 PM CDT [facility] Blood (Blood, Venous) 05/08/2025 12:35 PM CDT 05/08/2025 9:37 PM CDT us Lito Pollock P.A.-C. LAB BLOOD NON ADD-ON Final Res ult [facility] [address] [place] [address], [place] [facility] [facility] [address] [place] [address] * Sodium (05/08/2025 12:35 PM CDT) Sodium, P 139 135 - 145 mmol/L 05/08/2025 3:08 PM CDT [facility] Blood (Blood, Venous) 05/08/2025 12:35 PM CDT 05/08/2025 2:36 PM CDT Lito Pollock P.A.-C. LAB BLOOD ADD-ON Final Result Performing Organization Address City/[facility]/ZIP Co de Phone Number [facility] [address] [place] [address], [place] [facility] [place] [address] [place] [address] * Potassium (05/08/2025 12:35 PM CDT) Potassium, P 4.4 3.6 - 5.2 mmol/L 05/08/2025 3:08 PM CDT [facility] Blood (Blood, Venous) 05/08/2025 12:35 PM CDT 05/08/2025 2:36 PM CDT Lito Pollock P.A.-C. LAB BLOOD ADD-ON Final Result Performing Organization Address [facility] Co de Phone Number [facility] [address] [place] [address], [place] [facility] [facility] [place] [address] [place] [address] * Magnesium (05/08/2025 12:35 PM CDT) Magnesium, P 2.2 1.7 - 2.3 mg/dL 05/08/2025 3:08 PM CDT [facility] Blood (Blood, Venous) 05/08/2025 12:35 PM CDT 05/08/2025 2:36 PM CDT Lito Pollock P.A.-C. LAB BLOOD ADD-ON Final Result [facility] [address] [place] [address], [place] [facility] [place] [address] [place] [address] * (ABNORMAL) Glucose, Fasting (05/08/2025 12:35 PM CDT) Glucose, P 126(H) 70 - 100 mg/dL 05/08/2025 3:10 PM CDT [facility] Last Intake 1 hr 05/08/2025 2:34 PM CDT [facility] Blood (Blood, Venous) 05/08/2025 12:35 PM CDT 05/08/2025 2:34 PM CDT us Lito MandujanoAKatalina-C. LAB BLOOD NON ADD-ON Final Res ult Performing Organization Address [facility] Co de Phone Number [facility] [address] [place] [address], [place] [facility] [place] [address] [place] [address] * Creatinine with Estimated GFR (05/08/2025 12:35 PM CDT) Creatinine 0.78 0.59 - 1.04 mg/dL 05/08/2025 3:08 PM CDT OWAT Estimated GFR (eGFR) >90 >=60 mL/min/BSA 05/08/2025 3:08 PM CDT [facility] Comment: Estimated GFR calculated using the 2020 CKD_EPI creatinine equation. Blood (Blood, Venous) 05/08/2025 12:35 PM CDT 05/08/2025 2:36 PM CDT us Lito MandujanoA.-C. LAB BLOOD ADD-ON Final Result Performing Organization Address [facility]/ZIP Co de Phone Number [facility] [address] [place] [address], [place] [facility] [place] [address] [place] [address] * Calcium, Total (05/08/2025 12:35 PM CDT) Calcium, Total, P 9.4 8.6 - 10.0 mg/dL 05/08/2025 3:08 PM CDT [facility] Blood (Blood, Venous) 05/08/2025 12:35 PM CDT 05/08/2025 2:36 PM CDT Lito Pollock P.A.-C. LAB BLOOD ADD-ON Final Result [facility] [address] [place] [address], [facility] [place] [address] [place] [address] * BUN (Blood Urea Nitrogen) (05/08/2025 12:35 PM CDT) BUN (Blood Urea Nitrogen), P 9 6 - 21 mg/dL 05/08/2025 3:08 PM CDT [facility] Blood (Blood, Venous) 05/08/2025 12:35 PM CDT 05/08/2025 2:36 PM CDT us Lito SladeC. LAB BLOOD ADD-ON Final Result Performing Organization Address City/[facility]/ZIP Co de Phone Number [facility] [address] [place] [address], [place] [facility] [place] [address] [place] [address] * Bilirubin, Total (05/08/2025 12:35 PM CDT) Bilirubin, Total, P 0.2 0.0 - 1.2 mg/dL 05/08/2025 3:08 PM CDT [facility] Blood (Blood, Venous) 05/08/2025 12:35 PM CDT 05/08/2025 2:36 PM CDT us Lito Pollock P.A.-C. LAB BLOOD ADD-ON Final Result [facility] [address] [place] [address], [place] [facility] [place] [address] [place] [address] * AST (Aspartate Aminotransferase) (05/08/2025 12:35 PM CDT) Aspartate Aminotransferase (AST), P 37 8 - 43 U/L 05/08/2025 3:08 PM CDT OW[facility] Blood (Blood, Venous) 05/08/2025 12:35 PM CDT 05/08/2025 2:36 PM CDT us Lito Pollock P.A.-C. LAB BLOOD ADD-ON Final Result Performing Organization Address City/[facility]/ZIP Co de Phone Number [facility] [address] [place] [address], [place] [facility] [place] [address] [place] [address] * ALT (Alanine Aminotransferase) (05/08/2025 12:35 PM CDT) Alanine Aminotransferase (ALT), P 40 7 - 45 U/L 05/08/2025 3:08 PM CDT OW[facility] Blood (Blood, Venous) 05/08/2025 12:35 PM CDT 05/08/2025 2:36 PM CDT us Lito Pollock P.A.-C. LAB BLOOD ADD-ON Final Result [facility] [address] [place] [address], [place] [facility] [place] [address] [place] [address] * Alkaline Phosphatase (05/08/2025 12:35 PM CDT) Alkaline Phosphatase, P 93 35 - 104 U/L 05/08/2025 3:08 PM CDT OW[facility] Blood (Blood, Venous) 05/08/2025 12:35 PM CDT 05/08/2025 2:36 PM CDT us Lito Pollock P.A.-C. LAB BLOOD ADD-ON Final Result Performing Organization Address City/[facility] Co de Phone Number [facility] [address] [place] [address], [place] [facility] [place] [address] [place] [address] * Albumin (05/08/2025 12:35 PM CDT) Pathologist [facility] Albumin, P 4.3 3.5 - 5.0 g/dL 05/08/2025 3:08 PM CDT OW[facility] Blood (Blood, Venous) 05/08/2025 12:35 PM CDT 05/08/2025 2:36 PM CDT us Lito SladeCKatalina LAB BLOOD ADD-ON Final Result Performing Organization Address [facility] Co de Phone Number [facility] [address] [place] [address], [place] [facility] [place] [address] [place] [address] documented in this encounter Visit Diagnoses Diagnosis 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) Transplant Stem Cell (HCC) Follow Up Examination Following Bone Marrow Transplant documented in this encounter Additional Health Concerns Infection Onset Date Last Indicated Resolved Time Protective Environment 03/02/2023 03/02/2023 Assessment Noted Time PHQ-9 Depression Total Score: 2 12/10/19 25 2:46 PM [employer] documented as of this encounter Care Teams Purse Maker Relationship Specialty Start Date End Date Renzo Andres M.D. [address] [place], [place] [address] [phone] PCP - General Family Medicine 04/25/23 documented as of this encounter
--- OUTSIDE RECORDS SUMMARY | 2025-05-17 13:59 | XMS_ITS | Encounter Summary ---
Author Organization [facility] Address [address] [place] [address] Care Team Providers Care Bridge Crew Member Name Role Phone Renzo Andres M.D. 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 I have a [facility] place to live 12/19/2024 Education Answer Date Recorded What is the highest level of school you have completed or the highest degree you have received? Some college, no degree 04/24/2019 Comments No Sex and Gender Information Value Date Recorded Sex Assigned at Female 12/26/2018 8:37 PM CONSERVATION OFFICER Legal Sex Female 2:43 PM CONSERVATION OFFICER Gender Identity Female 12/26/2018 8:37 PM CONSERVATION OFFICER Sexual Orientation Choose not to disclose 2020 [...] 2 (two) times a day. 60 tablet 04/15/2025 ARIPiprazole (Abilify) 10 mg tablet Take 1 tablet (10 mg total) by mouth daily. Dose change 12/02/2024 30 tablet 5 04/15/2025 cholecalciferol (Vitamin D3) 50 mcg (2,000 Unit) tablet Take 50 mcg by mouth daily. 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 120 capsule 5 04/29/2025 HYDROmorphone (Dilaudid) 1 mg/mL liquidIndication s:Chronic Pain/Nonacute Pain Take 0.5 mL (0.5 mg total) by mouth daily as needed for pain Indication: Chronic Pain/Nonacute Pain. 10 mL 05/13/2025 loperamide (Imodium A-D) 2 mg capsule Take [...] total) by mouth daily. 90 tablet 04/15/2025 sulfamethoxazole -trimethoprim (Bactrim) 400-80 mg per tabletIndication [...] mg at bedtime. 90 capsule 3 04/29/2025 LORazepam (Ativan) 0.5 mg tablet Take 1 tablet (0.5 mg total) by mouth at bedtime as needed for anxiety. 30 tablet 04/15/2025 5 documented as of this encounter Progress Notes * Renita Potts, KARON, C.N.P., D.N.P. - 05/17/2025 2:00 PM CDT SUBJECTIVE TRANSPLANT PHYSICIAN Dr. Jessica Rousseau, pager [phone] CHIEF COMPLAINT/REASON FOR VISIT Ms. Radha Martinez [...] reticulin fibrosis noted. The cytogenetics identified a [place] chromosome in 20 metaphases. The BCR-ABL1 P [...] t(9;22) metaphases. 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 06/17/2024: feeling quite symptomatic since the [...] Access Camargo CVC placed on 12/03/24 by [facility]. Social Work Seen and cleared on [...] prophylaxis: Ursodiol 600 mg two times daily. 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 [id number]% donor DNA and approximately 0% recipient DNA. [...] right eye. Wears glasses. - Followed by [facility] in [place], [place]. - Patient will notify team if any vision changes. # Blood Products # TACO - Requires infusion of platelets at a slower rate # Disposition - Follow-up labs, pharmacy, RN/provider in three weeks. - Local labs at [facility] in 10 days. Renita Potts APRN, C.N.P., D.N.P. documented in this encounter Plan of Treatment Upcoming Encounters Date Type Department Care Team (Latest Contact Info) Description 05/29/2025 11:59 PM CDT Anesthesia Event Division of Gastroenterology in [place], [place] [address] [place] [phone] Bri Valenzuela M.D. [address] [place] [phone] 06/01/2025 1:15 PM CDT Appointment Division of Gastroenterology in [place], [place] [address] [place] [phone] Lito Pollock P.A.-C. [address] [place] [phone] Jeaneth Núñez M.B.B.S., M.S. [address] [place] [phone] 06/03/2025 7:30 AM CDT Appointment Department of Laboratory Medicine in [place], [place] 300 [place] [phone] Lito Pollock P.A.-C. [address] [place] [phone] 06/03/2025 10:00 AM CDT Telemedicine [facility] in [place], [place] [address] [place] [phone] Tessa Jesus, KARON, C.N.P., D.N.P. [address] [place] [phone] 06/10/2025 1:20 PM CDT Nurse Only Section of Infectious Diseases in [place], [place] [address] [place] [phone] Jessica Rousseau M.B.B.S. [address] [place] [phone] 06/15/2025 9:45 AM CDT Appointment Outpatient Procedure Center in [place], [place] [address] [place] [phone] Jessica Rousseau M.B.B.S. [address] [place] [phone] 06/24/2025 12:30 PM CDT Clinical Communication Virtual Review in [place], [place] 200 [place] [phone] 06/25/2025 8:10 AM CDT Lab Department of Laboratory Medicine and Pathology, [facility], in [place], [place] [address] [place] [address] Tessa Jesus APRN, Satnam.N.P., D.N.P. [address] [place] [phone] 06/25/2025 9:00 AM CDT Office Visit [facility] in [place], [place] [address] [place] [phone] Tessa Jesus APRN, C.N.P., D.N.P. [address] [place] [phone] 06/25/2025 9:30 AM CDT Nurse Only [facility] Transplantation and Clinical Regeneration in [place], [place] [address] [place] [address] Tessa Jesus APRN C.N.P., D.N.P. [address] [place] [phone] 06/25/2025 10:30 AM CDT Office Visit [facility] Transplantation and Clinical Regeneration in [place], [place] [address] [place] [phone] Jessica Rousseau M.B.B.S. [address] [place] [phone] 06/26/2025 10:00 AM CDT Telemedicine Department of Palliative Care in [place], [place] [address] [place] [phone] Isabel Sellers M.D. [address] [place] [phone] (FaxDebbie Hall M.D. [address] [place] [address] Scheduled Referrals Name Type Priority Associated Diagnoses [...] Culture, Blood #2 (05/17/2025 4:04 PM CDT) Bacteria/Yulia da Culture, Blood No growth after 5 days of incubation. 05/22/2025 5:02 PM CDT DTL Blood (Blood, Peripheral Draw) 05/17/2025 4:04 PM CDT 05/17/2025 4:50 PM CDT Comment:Specimen Source Site : Blood us Renita Potts APRN, C.N.P. , D.N.P. LAB MICROBIOLOGY - GENERAL ORDERABLES Final Result Performing Organization Address [facility] Co de Phone Number [facility] [address] 200 [place] [address] * Bacteria / Helen Culture, Blood #1 (05/17/2025 3:43 PM CDT) [facility] Bacteria/Yulia da Culture, Blood No growth after 5 days of incubation. 05/22/2025 5:02 PM CDT DT Blood (Blood, Peripheral Draw) 05/17/2025 3:43 PM CDT 05/17/2025 4:50 PM CDT Comment:Specimen Source Site : Blood Renita Potts APRN, C.N.P. , D.N.P. LAB MICROBIOLOGY - GENERAL ORDERABLES Final Result Performing Organization Address [facility] Co de Phone Number [facility] [address] 200 [place] [address] * Lactate for Sepsis with Reflex (05/17/2025 3:43 PM CDT) [facility] Lactate, P 1.6 0.5 - 2.2 mmol/L 05/17/2025 4:55 PM CDT DT Blood (Blood, Venous) 05/17/2025 3:43 PM CDT 05/17/2025 4:41 PM CDT Renita Potts APRN, C.N.P., D.N.P. LAB BLOOD N ON ADD-ON Final Result Performing Organization Address [facility] Co de Phone Number [facility] [address] 200 [place] [address] * Magnesium (05/17/2025 3:43 PM CDT) [facility] Magnesium, S 2.3 1.7 - 2.3 mg/dL 05/17/2025 4:59 PM CDT DTL Blood (Blood, Venous) 05/17/2025 3:43 PM CDT 05/17/2025 4:42 PM CDT us Renita Potts APRN, C.N.P., D.N.P. LAB BLOOD A DD-ON Final Result [facility] [address] [place] [address], [facility] DTL [facility] [address] [place] [address] * Comprehensive Metabolic Panel (05/17/2025 3:43 PM [...] D.N.P. LAB BLOOD A DD-ON Final Result [facility] [address] [place] [address], [facility] [address] [place] [address] * CBC no call back, reflex T/S HGB <8 (05/17/2025 3:43 PM CDT) Pathologist [facility] Hemoglobin 12.4 11.6 - 15.0 g/dL 05/17/2025 [...] 3:43 PM CDT 05/17/2025 4:26 PM CDT Renita Potts APRN, C.N.P., D.N.P. LAB BLOOD N ON ADD-ON Final Result [facility] [address] [place] [address], [facility] DTL [facility] 200 [place] [address] [facility] [address] [place] [address] * Clostridioides (Clostridium) Difficile Toxin, Molecular Detection, PCR, Feces (05/17/2025 2:42 PM CDT) C. difficile Toxin, F Negative Negative 05/17/2025 3:59 PM CDT DTL Stool (Stool) 05/17/2025 2:4 2 PM CDT 05/17/2025 3:13 PM CDT us Tiffani Leroy APRN, C.N.P., D.N.P. 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 [address] [place] [phone] PCP - General Family Medicine 04/25/23 documented as of this encounter
--- OUTSIDE RECORDS SUMMARY | 2025-05-20 09:00 | XMS_ITS | Encounter Summary ---
Author Organization [facility] Address [address] [place] [address] Care Team Providers Care Pedal Assembler Name Role Phone Renzo Andres M.D. Primary Care Provider [phone] Reason for Visit * Outpatient (Routine) - Closed Specialty Diagnoses / Procedures Referred By Estefania t Referred To Contact Pharmacy Lito Pollock P.A.-C. [address] [place] [phone] Phone: tel: fax: [facility] Referral ID Status Reason Start Date Expiration Date Visits Re quested Visits Authorized [id number] Closed 04/29/2025 10/29/2026 1 1 Encounter Details Date Type Department Care Team (Latest Contact Info) Description 05/20/2025 9:00 AM CDT [facility] in [place], [place] [address] [place] [phone] Lito Pollock P.A.-C. [address] [place] [phone] Nelli Parker, Pharm.D., R.Ph. [address] [place] [phone] Transplant Bone Marrow Allogeneic (HCC) (Primary Dx) Discharge Disposition: Home or Self Care Social History Tobacco Use Types Packs/Day Years Used Date Smoking Tobacco: Never Smokeless Tobacco: Never Alcohol Use Standard Drinks/Week Comments Yes 0 (1 standard drink = 0.6 oz pur e alcohol) social [facility] Utilities Answer Date Recorded In the [...] your living situation today? I have a [facility] place to live 12/19/2024 Education Answer Date Recorded What is the highest level of school you have completed or the highest degree you have received? Some college, no degree 04/24/2019 Comments No Sex and Gender Information Value Date Recorded Sex Assigned at Female 12/26/2018 8:37 PM CORE SHAPER TOP Legal Sex Female 2:43 PM CORE SHAPER TOP Gender Identity Female 12/26/2018 8:37 PM CORE SHAPER TOP Sexual Orientation Choose not to disclose 2020 [...] 05/20/2025 9:00 AM CDT Medication Management Services ([facility]) SUBJECTIVE Radha Martinez is a 35 y.o. female, who is seen by the [facility] Pharmacist for targeted medication review. She [...] Camargo; Surgeon: Brianna Hernandez M.D., Ph.D.; Location: [facility] OR [7] Patient Active Problem List [...] CDT Anesthesia Event Division of Gastroenterology in [place], [place] [address] [place] [phone] Bri Valenzuela M.D. [address] [place] [phone] 06/01/2025 1:15 PM CDT Appointment Division of Gastroenterology in [place], [place] [address] [place] [phone] Lito Pollock P.A.-C. [address] [place] [phone] Jeaneth Núñez M.B.B.S., M.S. [address] [place] [phone] 06/03/2025 7:30 AM CDT Appointment Department of Laboratory Medicine in [address] [phone] Lito Pollock P.A.-C. [address] [place] [phone] 06/03/2025 10:00 AM CDT [facility]medicine [facility] in [place], [place] [address] [place] [phone] Tessa Jesus, KARON, C.N.P., D.N.P. [address] [place] [phone] 06/10/2025 1:20 PM CDT Nurse Only Section of Infectious Diseases in [place], [place] [address] [place] [phone] Jessica Rousseau M.B.B.S. [address] [place] [phone] 06/15/2025 9:45 AM CDT Appointment Outpatient Procedure Center in [place], [place] [address] [place] [phone] Jessica Rousseau M.B.B.S. [address] [place] [phone] 06/24/2025 12:30 PM CDT Clinical Communication Virtual Review in [place], [place] 200 [place] [phone] 06/25/2025 8:10 AM CDT Lab Department of Laboratory Medicine and Pathology, [facility], in [place], [place] [address] [place] [phone] Tessa Jesus APRN, C.N.P., D.N.P. [address] [place] [phone] 06/25/2025 9:00 AM CDT [facility] in [place], [place] [address] [place] [phone] Tessa Jesus APRN, C.N.P., D.N.P. [address] [place] [phone] 06/25/2025 9:30 AM CDT Nurse Only [facility] in [place], [place] [address] [place] [phone] Tessa Jesus APRN, CKatalinaNKatalinaP., D.N.P. [address] [place] [phone] 06/25/2025 10:30 AM CDT [facility] in [place], [place] [address] [place] [phone] Jessica Rousseau M.B.BKatalinaS. [address] [place] [phone] 06/26/2025 10:00 AM CDT Telemedicine Department of Palliative Care in [place], [place] [address] [place] [phone] Isabel Sellers M.D. [address] [place] [phone] Debbie Shay M.D. [address] [place] [phone] documented as of this encounter Visit Diagnoses Diagnosis Transplant Bone Marrow Allogeneic (HCC)- Primary documented in this encounter Additional Health Concerns Infection Onset Date Last Indicated Resolved Time Protective Environment 03/02/2023 03/02/2023 Assessment Noted Time PHQ-9 Depression Total Score: 2 12/10/19 25 2:46 PM CORE SHAPER TOP documented as of this encounter Care Teams Pedal Assembler Relationship Specialty Start Date End Date Renzo Andres M.D. [address] [place] [address] [place] [phone] PCP - General Family Medicine 04/25/23 documented as of this encounter
--- OUTSIDE RECORDS SUMMARY | 2025-05-20 09:30 | XMS_ITS | Encounter Summary ---
Author Organization [facility] Address [address] [place] [address] Care Team Providers Care Supervisor [employer] Name Role Phone Renzo Andres M.D. Primary Care Provider [phone] Reason for Referral * Transplant (Routine) - Authorized Specialty Diagnoses / Procedures Referred By Contac t Referred To Contact Transplant Tessa Jesus APRN, C.N.PKatalina, D.N.P. [address] [place] [phone] Phone: tel: fax: [facility] Referral ID Status Reason Start Date Expiration Date V isits Requested Visits Authorized [id number] Authorized 05/20/2025 11/19/2026 1 1 * Outpatient (Routine) - Authorized Specialty Diagnoses / Procedures Referred By Contac t Referred To Contact Pharmacy Tessa Jesus APRN, C.N.P., D.N.P. [address] [place] [phone] Phone: tel: fax: [facility] Referral ID Status Reason Start Date Expiration Date V isits Requested Visits Authorized [id number] Authorized 05/20/2025 11/19/2026 1 1 Scheduling Instructions Please schedule with pharmacist for 30 minutes. Patient type: Allo Over 100 Visit Type: Return Scheduling Preferences Option 1: Primary MD only/RN Option 2: Primary MD only/RN Other Scheduling Instructions: Please schedule approximately 1 week after BmBx on 06/15 Primary MD: Dr Rousseau RN Team: t Bmt Team Two Sharon * Transplant (Routine) - Authorized Specialty Diagnoses / Procedures Referred By Contac t Referred To Contact Transplant Tessa Jesus APRN, C.N.P., D.N.P. [address] [place] [phone] Phone: tel: fax: [facility] Referral ID Status Reason Start Date Expiration Date V isits Requested Visits Authorized [id number] Authorized 05/20/2025 11/19/2026 1 1 Scheduling Instructions Please schedule with BMT MD for 30 minutes. Patient type: Allo Over 100 Visit Type: Return Scheduling Preferences Option 1: Primary MD only/RN Option 2: Primary MD only/RN Other Scheduling Instructions: Please schedule approximately 1 week after BmBx on 06/15 Primary MD: Dr Rousseau RN Team: [facility] Bmt Team Two Sharon * Transplant (Routine) - Authorized Specialty Diagnoses / Procedures Referred By Contac t Referred To Contact Transplant Tessa Jesus APRN, C.N.P., D.N.P. [address] [place] [phone] Phone: tel: fax: [facility] Referral ID Status Reason Start Date Expiration Date V isits Requested Visits Authorized [id number] Authorized 05/20/2025 11/19/2026 1 1 Scheduling Instructions Please schedule with RNCC for 30 min Patient type: Allo Over 100 Visit Type: Return Scheduling Preferences Option 1: Primary MD only/RN Option 2: Primary MD only/RN Other Scheduling Instructions: Please schedule approximately 1 week after BmBx on 06/15 Primary MD: Dr Rousseau RN Team: Rst Bmt Team Two Sharon Reason for Visit * Reason Comments Nurse Visit * Transplant (Routine) - Closed Specialty Diagnoses / Procedures Referred By Estefania t Referred To Contact Transplant Lito Plolock P.A.-C. [address] [place] [phone] Phone: tel: fax: [facility] Referral ID Status Reason Start Date Expiration Date Visits Re quested Visits Authorized [id number] Closed 04/29/2025 10/29/2026 1 1 Encounter Details Date Type Department Care Team (Latest Contact Info) Description 05/20/2025 9:30 AM CDT [facility] [place], [place] [address] [place] [phone] Lito Pollock P.A.-C. 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 I have a [facility] place to live 12/19/2024 Education Answer Date Recorded What is the highest level of school you have completed or the highest degree you have received? Some college, no degree 04/24/2019 Comments No Sex and Gender Information Value Date Recorded Sex Assigned at Female 12/26/2018 8:37 PM [employer] Legal Sex Female 2:43 PM [employer] Gender Identity Female 12/26/2018 8:37 PM [employer] Sexual Orientation Choose not to disclose 2020 3:46 PM CDT documented as of this encounter Progress Notes * Tessa Jesus, KARON, C.N.P., D.N.P. - 05/20/2025 9:30 AM CDT SUBJECTIVE TRANSPLANT PHYSICIAN Dr. Jessica Rousseau, pager [phone] CHIEF COMPLAINT/REASON FOR VISIT Ms. Radha Martinez [...] reticulin fibrosis noted. The cytogenetics identified a [place] chromosome in 20 metaphases. The BCR-ABL1 P [...] 11/2023. However, it started rising again. It unno to 6.4% in April 2024. 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 However, BCR/ABL1 p210 transcript was present at4.6% in marrow. Karyotype continued to show persistence of t(9;22) metaphases. 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 06/17/2024: feeling quite symptomatic since the [...] placed on 12/03/24 by [facility]. Social Work Seen and cleared on 10/29/24 [...] prophylaxis: Ursodiol 600 mg two times daily. [facility] ID Number: [id number] [...] HISTORY 05/20/25 Day+161 Radha Martinez presents to [place] [address] for routine follow-up. Main concern today for [...] We will try to arrange a return [place] [address] Soham parekh days after [...] donor DNA and approximately 40% recipient DNA. CQ87-% donor DNA and approximately 0% recipient DNA. [...] right eye. Wears glasses. - Followed by [facility] in [place], [place]. - Patient will notify team if [...] as she is on a waitlist with [facility]. GI: experiencing nausea and dry heaving in [...] CDT Anesthesia Event Division of Gastroenterology in [place], [place] [address] [place] [phone] Bri Valenzuela M.D. [address] [place] [phone] 06/01/2025 1:15 PM CDT Appointment Division of Gastroenterology in [place], [place] [address] [place] [phone] Lito Pollock P.A.-C. [address] [place] [phone] Jeaneth Núñez M.B.B.S., M.S. [address] [place] [place] [phone] 06/03/2025 7:30 AM CDT Appointment Department of Laboratory Medicine in [address] [phone] Lito Pollock P.A.-C. [address] [place] [phone] 06/03/2025 10:00 AM CDT [facility]icine [facility] in [place], [place] [address] [place] [place] [phone] Tessa Jesus APRN, C.N.P., D.N.P. [address] [place] [phone] 06/10/2025 1:20 PM CDT Nurse Only Section of Infectious Diseases in [place], [place] [address] [place] [place] [phone] Jessica Rousseau M.B.B.S. [address] [place] [phone] 06/15/2025 9:45 AM CDT Appointment Outpatient Procedure Center in [place], [place] [address] [place] [phone] Jessica Rousseau M.B.B.S. [address] [place] [phone] 06/24/2025 12:30 PM CDT Clinical Communication Virtual Review in [place], [place] 200 [place] [phone] 06/25/2025 8:10 AM CDT Lab Department of Laboratory Medicine and Pathology, [facility], in [place], [place] [address] [place] [place] [phone] Tessa Jesus APRN, C.N.P., D.N.P. [address] [place] [phone] 06/25/2025 9:00 AM CDT [facility] [place], [place] [address] [place] [place] [phone] Tessa Jesus APRN, C.N.P., D.N.P. [address] [place] [phone] 06/25/2025 9:30 AM CDT Nurse Only [facility] Transplantation and Clinical Regeneration in [place], [place] [address] [place] [phone] Tessa Jesus APRN, C.N.P., D.N.P. [address] [place] [phone] 06/25/2025 10:30 AM CDT Office Visit [facility] Transplantation and Clinical Regeneration in [place], [place] [address] [place] [phone] Jessica Rousseau M.B.B.S. [address] [place] [phone] 06/26/2025 10:00 AM CDT Telemedicine Department of Palliative Care in [place], [place] [address] [place] [place] [phone] Isabel Sellers M.D. [address] [place] [phone] Debbie Shay M.D. [address] [place] [phone] Scheduled Orders Name Type Priority Associated Diagnoses [...] Expires: 08/20/2026 BCR/ABL1, p210, mRNA Detection, Reverse Natural Sciences Department Chair-PCR (RT-PCR), Quantitative, Monitoring Chronic Myeloid Leukemia (CML) [...] Total Score: 2 12/10/19 25 2:46 PM [employer]PER[employer] documented as of this encounter Care Teams Supervisor [employer] Relationship Specialty Start Date End Date Renzo Andres M.D. [address] [place] [phone] PCP - General Family Medicine 04/25/23 documented as of this encounter"
--- OUTSIDE RECORDS SUMMARY | 2025-05-25 13:45 | XMS_ITS | Encounter Summary ---
Author Organization [facility] Address [address] [place] [address] Care Team Providers Care Field Operations Farm Manager Name Role Phone Renzo Andres M.D. Primary Care Provider [phone] Encounter Details Date Type Department Care Team (Late st Contact Info) Description 05/25/2025 1:45 PM CDT Patient [facility] in [place], [place] [address] [place] [address] Ta Medrano Social History Tobacco Use Types Packs/Day Years Used Date Smoking Tobacco: Never Smokeless Tobacco: Never Alcohol Use Standard Drinks/Week Comments Yes 0 (1 standard drink = 0.6 oz pur e alcohol) social C Utilities Answer Date Recorded In the past 12 months has e [employer], gas, oil, or water [employer] threatened to shut off services in [...] your living situation today? I have a [facility] place to live 12/19/2024 Education Answer Date Recorded What is the highest level of school you have completed or the highest degree you have received? Some college, no degree 04/24/2019 Comments No Sex and Gender Information Value Date Recorded Sex Assigned at Female 12/26/2018 8:37 PM STAMPING DIE MAKER Legal Sex Female 2:43 PM STAMPING DIE MAKER Gender Identity Female 12/26/2018 8:37 PM STAMPING DIE MAKER Sexual Orientation Choose not to disclose 2020 [...] the patient navigation team with any questions. [facility] [phone]. documented in this encounter Plan of Treatment Upcoming Encounters Date Type Department Care Team (Latest Contact Info) Description 05/29/2025 11:59 PM CDT Anesthesia Event Division of Gastroenterology in [place], [place] [address] [place] [phone] Bri Valenzuela M.D. [address] [place] [phone] 06/01/2025 1:15 PM CDT Appointment Division of Gastroenterology in [place], [place] [address] [place] [phone] Lito Pollock P.A.-C. [address] [place] [phone] Jeaneth Núñez M.B.B.S., M.S. [address] [place] [phone] 06/03/2025 7:30 AM CDT Appointment Department of Laboratory Medicine in [place] [address] [place] [address] Lito Pollock P.A.-C. [address] [place] [phone] 06/03/2025 10:00 AM CDT Telemedicine [facility] in [place], [place] [address] [place] [phone] Tessa Jesus APRN, C.N.P., D.N.P. [address] [place] [phone] 06/10/2025 1:20 PM CDT Nurse Only Section of Infectious Diseases in [place], [place] [address] [place] [phone] Jessica Rousseau M.B.B.S. [address] [place] [phone] 06/15/2025 9:45 AM CDT Appointment Outpatient Procedure Center in [place], [place] [address] [place] [phone] Jessica Rousseau M.B.B.S. [address] [place] [phone] 06/24/2025 12:30 PM CDT Clinical Communication Virtual Review in [place], [place] 200 [place] [address] 06/25/2025 8:10 AM CDT Lab Department of Laboratory Medicine and Pathology, [facility] in [place], [place] [address] [place] [phone] Tessa Jesus APRN, C.N.P., D.N.P. [address] [place] [phone] 06/25/2025 9:00 AM CDT Office Visit Pedro Lanza [facility] for Transplantation and Clinical Regeneration in [place], [place] [address] [place] [phone] Tessa Jesus APRN, C.N.P., D.N.P. [address] [place] [phone] 06/25/2025 9:30 AM CDT Nurse Only [facility] in [place], [place] [address] [place] [phone] Tessa Jesus APRN, C.N.P., D.N.P. [address] [place] [phone] 06/25/2025 10:30 AM CDT Office Visit Pedro sanchez [facility] for Transplantation and Clinical Regeneration in [place], [place] [address] [place] [phone] Jessica Rousseau M.B.B.S. [address] [place] [address] 06/26/2025 10:00 AM CDT Telemedicine Department of Palliative Care in [place], [place] [address] [place] [phone] Isabel Sellers M.D. [address] [place] [phone] Debbie Shay M.D. [address] [place] [phone] documented as of this encounter Visit Diagnoses Not on filedocumented in this encounter Additional Health Concerns Infection Onset Date Last Indicated Resolved Time Protective Environment 03/02/2023 03/02/2023 Assessment Noted Time PHQ-9 Depression Total Score: 2 12/10/19 25 2:46 PM STAMPING DIE MAKER documented as of this encounter Care Teams Field Operations Farm Manager Relationship Specialty Start Date End Date Renzo Andres M.D. [address] [place] [address] [place] [phone] PCP - General Family Medicine 04/25/23 documented as of this encounter
--- OUTSIDE RECORDS SUMMARY | 2025-05-25 14:00 | XMS_ITS | Encounter Summary ---
Author Organization [facility] Address [address] [place] [address] Care Team Providers Care Cook Railroad Name Role Phone Renzo Andres M.D. Primary Care Provider [phone] Reason for Referral * Outpatient (Routine) - Authorized Specialty Diagnoses / Procedures Referred By Estefania acosta Referred To Contact Palliative Medicine Felicia Watt APRN, C.N.P., M.S.N. [address] [place] [phone] Phone: tel: fax: [facility] Referral ID Status Reason Start Date Expiration Date V isits Requested Visits Authorized [id number] Authorized 05/25/2025 11/24/2026 1 1 * Medication Prior Authorization - Authorized Specialty Diagnoses / Procedures Referred By Estefania acosta Referred To Contact Felicia Watt APRN, C.NDustin, M.S.N. [address] [place] [phone] Phone: tel: fax: Referral ID Status Reason Start Date Expiration Date V isits Requested Visits Authorized [id number] Authorized 05/26/2025 11/18/2099 1 1 Reason for Visit * Outpatient (Routine) - Closed Specialty Diagnoses / Procedures Referred By Estefania acosta Referred To Contact Palliative Medicine Martine Pardo B.M.B.S., Juan M, B.Ch. [address] [place] [phone] Phone: tel: fax: [facility] Referral ID Status Reason Start Date Expiration Date Visits Re quested Visits Authorized [id number] Closed 04/21/2025 10/21/2026 1 1 Encounter Details Date Type Department Care Team (Late st Contact Info) Description 05/25/2025 2:00 PM CDT Office Visit Department of Palliative Care in [place], [place] [address] [place] [phone] Felicia Watt APRN, C.N.P., M.S.N. [address] [place] [phone] Pain Leg Bilateral (Primary Dx); Nausea; Fatigue; Insomnia; Anxiety; Palliative Care Social History Tobacco Use Types Packs/Day Years Used Date Smoking Tobacco: Never Smokeless Tobacco: Never Alcohol Use Standard Drinks/Week Comments Yes 0 (1 standard drink = 0.6 oz pur e alcohol) social [facility] Utilities Answer Date Recorded In the past 12 months has e [employer], gas, oil, or water [employer] threatened to shut off services in your [...] your living situation today? I have a [facility] place to live 12/19/2024 Education Answer Date Recorded What is the highest level of school you have completed or the highest degree you have received? Some college, no degree 04/24/2019 Comments No Sex and Gender Information Value Date Recorded Sex Assigned at Female 12/26/2018 8:37 PM WEB CONTENT DIRECTOR Legal Sex Female 2:43 PM WEB CONTENT DIRECTOR Gender Identity Female 12/26/2018 8:37 PM WEB CONTENT DIRECTOR Sexual Orientation Choose not to disclose 2020 3:46 PM CDT documented as of this encounter Last Filed Vital Signs Vital Sign Reading Time Taken Comments Blood Pressure 137/82 05/25/2025 1:51 PM CDT Pulse 76 05/25/2025 1:51 PM CDT Temperature 36.6 C (97.9 F) 05/25/2025 1:51 PM CDT Respiratory Rate - - Oxygen Saturation 98% 05/25/2025 1:51 PM CDT Inhaled Oxygen Concentration - - Weight - - Height - - Body Mass Index - - documented in this encounter Progress Notes * Felicia Watt, KARON, C.N.P., M.S.N. - 05/25/2025 2:00 PM CDT [facility] Outpatient Palliative Care Progress Note The patient verbally consented to an audio recording of their visit to assist with the completion of documentation. Patient: Radha Martinez; 35 y.o.female [facility] Pall[facility] SUBJECTIVE Radha Martinez is a 35 y.o. 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 She experiences dull, aching pain in her legs, with intensity ranging from 4 to 6 out of 10. The pain extends from her hips to her ankles, affecting both the front and back of her legs, but does not reach her feet. It worsens in the morning due to stiffness and after prolonged standing, such as during a recent volunteer event. The pain sometimes disrupts her sleep. No family history of autoimmunediseases, red or swollen joints. She has been taking gabapentin at a dose of 600 mg three times a day without any noticeable benefitor side effects. Previously, she tried pregabalin without success. She also uses duloxetine at 120 mg daily and finds that 0.5 mg of Dilaudid at bedtime helps alleviate the pain enough to sleep. She is interested in trial of acupressure or acupuncture but is waiting to schedule these treatments. She has tried CBD for her leg pain, which helps but is not used frequently due to cost. She has not used any topical treatments for her legs yet. The pain began a couple of months ago, after her 100 days post-transplant, around the end of January.She had similar neuropathic pain before her transplant, which subsided about a month prior to the procedure. There is no associated numbness, tingling, or weakness in her legs, and she does not typically experience back pain, although she did have some lower back soreness after a recent event. She experiences morning nausea, which started last week, and has been taking Compazine at 6:30 AM to manage it, finding it helpful. Eating also alleviates the nausea. Her bowel movements are regular,occurring twice daily without the need for medication. She experiences general anxiety, which is managed with weekly therapy and duloxetine/Abilify under supervision of her psychiatrist. Uses lorazepam 0.5 mg a few times per week at bedtime to help with anxiety. She experiences fatigue post-transplant. She volunteers and takes her dog for short walks. She notes difficulty with sleep at night, both secondary to pain as well as intermittent anxiety or feeling restless. She finds benefit from warm baths, going for walks, reading, and has enjoyed guided imagery previously. The following portions of the patient's history were reviewed and updated as appropriate: Allergies, Current Medications, Medical History, Surgical History, Family History, and Social History Additionally, if completed, NCCN Distress Thermometer Reviewed as relevant to current encounter. OBJECTIVE Objective Physical Exam: Temperature: [36.6 ??C] 36.6 ??C Blood Pressure: (137)/(82) 137/82 SpO2: [98 %] 98 % Pulse Rate: [76] 76 Constitutional Comments: Fatigued Eyes Conjunctiva/sclera: Conjunctivae normal. Pulmonary Effort: Pulmonary effort is normal. Neurological Mental Status: She is alert. Psychiatric Mood and Affect: Mood normal. Behavior: Behavior normal. Thought Content: Thought content normal. Judgment: Judgment normal. Physical Exam MUSCULOSKELETAL: Midline lumbar and sacral spine tenderness on palpation. Mild tenderness in pelvison palpation bilaterally. Strength intact and equal. No paraesthesias. Palliative Functional Assessment 70%-Reduced ambulation, Unable to do normal job/work with significant evidence of disease, Full self-care, Normal or reduced intake, Full level of consciousness ASSESSMENT / PLAN #1 Pain Leg Bilateral #2 Nausea #3 Fatigue #4 Insomnia #5 Anxiety #6 Palliative Care Ms. Martinez continues to have bilateral aching leg pain. On physical exam, she also has tendernessto sacrum and pelvic bones bilaterally. Unfortunately, she has had no improvement in pain with up titration of gabapentin. She finds benefit from topical heat, warm bath, and hydromorphone 0.5 mg at bedtime. I will reach out to her hematology team for their thoughts regarding the etiology of her pain. Given history of pain improving before transplant around 2023 and returning after stem cell transplant around January, pain description, and lack of response to neuropathic agents, I do not feel as though pain is related to prior chemotherapies and warrants further evaluation. In the meantime, as pain continues to interfere with activity and sleep, we will trial buprenorphine for more consistent pain control and improve function and quality of life. Buprenorphine is FDA approved for moderate to severe chronic pain in patients with OME less than 30 mg/day. Buprenorphine also has an atypical mechanism of action at the opioid receptor when compared with traditional opioids resulting in neuropathic pain benefits and decreased risk of respiratory depression, sedation, euphoria, craving, dysphoria, hyperalgesia, and constipation. Recommendations Assessment & Plan Bilateral aching leg pain with tenderness to sacrum and pelvic bones on exam Chronic, aching pain in legs, unresponsive to gabapentin and pregabalin. Dilaudid provides partial relief. Given atypical nature of pain, with improvement in pain before and after transplant, I will discuss with hematology for their thoughts regarding need for further evaluation. Of note, she has sa cral and pelvic tenderness to palpation on exam. - Prescribe Butrans patch 5 mcg/hour. - Continue gabapentin 600 mg TID at this time as well tolerated. Consider gabapentin taper if Butrans effective. Held off today to allow for monitoring response to Butrans. - Trial Claritin 10 mg daily for bone pain relief. - Discussed hope of tapering off of hydromorphone (0.5 mg at HS) if improvement in pain with initiation of Butrans. Okay to continue as needed at this time. - Counseled to avoid concurrent use of opioids and benzodiazepines due to added risk of sedation and respiratory depression. She plans to trial warm bath and relaxation strategies as an alternative to ativan, cautious to separate by minimum of 4 hours if needed. She also has upcoming follow up withpsychiatry and ongoing therapist visits. - Provided prescription for naloxone along with instructions for use. Discussed that naloxone (Narcan) is a life-saving medication that quickly and temporarily reverses the effects of opioids in the setting of an intentional or unintentional opioid overdose. Signs that someone may be experiencing an opioid overdose include having slow, shallow breathing; they may be unconscious or difficulty to wake; have blue or purple lips or fingernails; or be confused. If concern for opioid overdose, give naloxone and call 911. Nausea Intermittent morning nausea, relieved by eating. - Trial famotidine or omeprazole OTC - Continue Compazine in the morning if needed. Fatigue post-transplant Sleep Anxiety Ongoing fatigue, possibly medication-related. Sleep generally good, sometimes interrupted by pain. - Continue daily physical activity as tolerating, balancing activity with energy conservation strategies. - She plans to pursue local PT following upcoming bone marrow biopsy - Continue with warm bath before bed - Hopeful for improved sleep and anxiety with pain management with initiation of Butrans. - Provide aromatherapy samples and relaxation resources. - Plan to taper gabapentin in follow up. - Monitor for improvement in fatigue if able to reduce compazine. Bowels Bowels soft and moving twice daily without intervention - If she develops constipation with initiation of Butrans, recommend Senokot (Senna-S) 1-2 tablets 1-2 times daily - If persistent constipation after 2 days, recommend adding polyethylene glycol (MiraLAX) one capful (17 gms) in 8 ounces of water or juice daily - Goal is to have a soft, moderately sized bowel movement every 1-2 days. - If you have issues with loose or frequent stools or constipation dose not resolve, contact the palliative care team for further guidance. Opioid Summary Opioid Need: This patient has a condition that necessitates treatment with an opioid for longer than 7 days. Additionally, a non-opioid alternative was not appropriate or inadequate to manage patient???s pain. We have reviewed risks, benefits and alternatives related to opioid prescribing as well as relevant mitigation strategies. Diagnosis related to controlled substance prescribing: bilateral leg pain of unknown etiology- disease vs. Treatment related pain? [place] STUNT MAN Review: We have reviewed the patient's record in the [place] prescription monitoring program 05/25/2025. Opioid Toxicity Review: We have reviewed the risks of opioid therapy and completed an assessment oftoxicities. Opioid Aberrant Use Concerns: None Opioid Risk Score: Last Opioid Risk Tool charting Flowsheet Row Comprehensive Visit from 04/21/2025 in Department of Palliative Care in [place], [place] ORT Total Score (max 26) 2 Naloxone prescribed: yes Thank you for the opportunity to see [...] care I have outlined. Follow up visit: She will provide update regarding Butrans tolerance/effectiveness after 1 week. Low threshold to taper gabapentin if pain is well controlled. If Butrans helpful with pain continuing to limit activity, low threshold to increase dose and taper gabapentin. provider 1 month, clinic visit or virtual Total time spent was 60 minutes. Felicia Watt APRN, C.N.P., M.S.N. documented in this encounter Plan of Treatment Upcoming Encounters Date Type Department Care Team (Latest Contact Info) Description 05/29/2025 11:59 PM CDT Anesthesia Event Division of Gastroenterology in [place], [place] [address] [place] [phone] Bri Valenzuela M.D. [address] [place] [phone] 06/01/2025 1:15 PM CDT Appointment Division of Gastroenterology in [place], [place] [address] [place] [phone] Lito Pollock P.A.-C. [address] [place] [phone] Jeaneth Núñez M.B.B.S., M.S. [address] [place] [phone] 06/03/2025 7:30 AM CDT Appointment Department of Laboratory Medicine in [address] [phone] Lito Pollock P.A.-C. [address] [place] [phone] 06/03/2025 10:00 AM CDT [facility] in [place], [place] [address] [place] [phone] Tessa Jesus APRN, C.N.P., D.N.P. [address] [place] [phone] 06/10/2025 1:20 PM CDT Nurse Only Section of Infectious Diseases in [place], [place] [address] [place] [phone] Jessica Rousseau M.B.B.S. [address] [place] [phone] 06/15/2025 9:45 AM CDT Appointment Outpatient Procedure Center in [place], [place] [address] [place] [phone] Jessica Rousseau M.B.B.S. [address] [place] [phone] 06/24/2025 12:30 PM CDT Clinical Communication Virtual Review in [place], [place] 200 [place] [phone] 06/25/2025 8:10 AM CDT Lab Department of Laboratory Medicine and Pathology, [facility], in [place], [place] [address] [place] [phone] Tessa Jesus APRN, C.N.PKatalina, D.N.P. [address] [place] [phone] 06/25/2025 9:00 AM CDT [facility] in [place], [place] [address] [place] [phone] Tessa Jesus APRN, C.N.Delbert, D.N.P. [address] [place] [phone] 06/25/2025 9:30 AM CDT Nurse Only [facility] in [place], [place] [address] [place] [phone] Tessa Jesus, KARON, C.N.P., D.N.P. [address] [place] [phone] 06/25/2025 10:30 AM CDT [facility] in [place], [place] [address] [place] [phone] Jessica Rousseau M.B.BKatalinaS. [address] [place] [phone] 06/26/2025 10:00 AM CDT Telemedicine Department of Palliative Care in [place], [place] [address] [place] [phone] Isabel Sellers M.D. [address] [place] [phone] Debbie Shay M.D. [address] [place] [phone] Scheduled Referrals Name Type Priority Associated Diagnoses Order Schedule Palliative Care office visit (clinic) Outpatient Referral Routine Expected: 06/25/2025, Expires: 08/25/2026 documented as of this encounter Visit Diagnoses Diagnosis Pain Leg Bilateral- Primary Nausea Fatigue Insomnia Anxiety Palliative Care documented in this encounter Additional Health Concerns Infection Onset Date Last Indicated Resolved Time Protective Environment 03/02/2023 03/02/2023 Assessment Noted Time PHQ-9 Depression Total Score: 2 12/10/19 25 2:46 PM WEB CONTENT DIRECTOR documented as of this encounter Care Teams Cook Railroad Relationship Specialty Start Date End Date Renzo Andres M.D. [address] [place] [phone] PCP - General Family Medicine 04/25/23 documented as of this encounter
--- OUTSIDE RECORDS SUMMARY | 2025-05-28 15:39 | XMS_ITS | Encounter Summary ---
Author Organization [facility] Address [address] [place] [address] Care Team Providers Care Roof Bolting Coal Miner Name Role Phone Renzo Andres M.D. Primary Care Provider [phone] Encounter Details Date Type Department Care Team (Latest Contact Info) Description 05/28/2025 3:39 PM CDT - 05/29/2025 4:32 PM CDT Hospital Encounter [facility], Ninth Floor [address] [place] [address] Tanya Ivey M.D. [address] [place] [address] Discharge Disposition: Home or Self Care Social [...] your living situation today? I have a [employer] place to live 05/28/2025 Education Answer Date Recorded What is the highest level of school you have completed or the highest degree you have received? Some college, no degree 04/24/2019 Comments No Sex and Gender Information Value Date Recorded Sex Assigned at Female 12/26/2018 8:37 PM NET WEB APPLICATION DEVELOPER Legal Sex Female 2:43 PM NET WEB APPLICATION DEVELOPER Gender Identity Female 12/26/2018 8:37 PM NET WEB APPLICATION DEVELOPER Sexual Orientation Choose not to disclose 2020 [...] AM CDT DISCHARGE SUMMARY BRIEF OVERVIEW Hospital: [facility] Discharge Provider: Tanya Ivey M.D. Primary Team: [facility] Primary Care Providers: Renzo Andres M.D. (General) [address] [place] [phone] Primary Care Provider Primary Care Provider Other Providers: None Admission Date: 05/28/2025 Discharge Date: 05/29/2025 PRINCIPAL DIAGNOSIS Nausea And Vomiting SECONDARY DIAGNOSES Principal Problem: Nausea And Vomiting Active Problems: Pain Neuropathic Depressive Disorder Transplant Stem Cell (HCC) Resolved Problems: * No resolved hospital problems. * DISCHARGE DISPOSITION Home or Self Care [1] ACTIVE ISSUES REQUIRING FOLLOW UP She will continue weekly labs at [facility]. Her Daisy 9 appointment is scheduled June 03. OUTPATIENT [...] 06/25/2025 9:30 AM TXP BMT NURSE 02 [facility] Transplant Blood and Marrow 06/25/2025 10:30 [...] 27 for nausea. She was started on isagalnolf92 mg daily on May 28. The next [...] AM CDT You were discharged from the [facility] Service. Please identify [...] Dose change 12/02/2024 30 tablet 5 04/15/2025 buprenorphine (Butrans) 5 mcg/hourIndications :Chronic Pain/Nonacute Pain Place 1 patch on the skin once a week Indication: Chronic Pain/Nonacute Pain. 4 patch 05/25/2025 cholecalciferol (Vitamin D3) 50 mcg (2,000 Unit) tablet Take 50 mcg by mouth daily. 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 120 capsule 5 04/29/2025 HYDROmorphone (Dilaudid) 1 mg/mL liquidIndications:C hronic Pain/Nonacute [...] Take 5 mg by mouth at bedtime. ondansetron ODT (Zofran-ODT) 4 mg disintegrating tablet Dissolve 1-2 tablets (4-8 mg total) in the mouth every 8 (eight) hours as needed for nausea or vomiting. 20 tablet 1 05/27/2025 pantoprazole (Protonix) 40 mg EC tablet Take 1 tablet (40 mg total) by mouth 2 (two) times a day before morning and evening meals. 60 tablet 1 05/29/2025 4:28 PM CDT 05/29/2025 penicillin V potassium (Veetids) 500 mg tabletIndications:L eukemia Myeloid Chronic BCR/ABL Positive Remission (HCC),Transplant Bone Marrow Allogeneic (HCC) Take 1 tablet (500 mg total) by mouth 2 (two) times a day. 60 tablet 11 04/29/2025 posaconazole (NoxafiL) [address] tabletIndications:L eukemia Myeloid Chronic BCR/ABL Positive Remission (HCC),Transplant Bone Marrow Allogeneic (HCC) Take 3 tablets (300 mg total) by mouth daily. 90 tablet 04/15/2025 predniSONE (Deltasone) 10 mg tablet Take 6 tablets (60 mg total) by mouth daily for 3 days, THEN 5 tablets (50 mg total) daily for 5 days. 43 tablet 05/29/2025 4:28 PM CDT 05/30/2025 prochlorperazine (Compazine) 10 mg tablet Take 1 tablet (10 mg total) by mouth every 6 (six) hours as needed for nausea. 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 60 tablet 1 05/13/2025 documented as of this encounter Progress Notes [...] SUBJECTIVE TRANSPLANT PHYSICIAN Dr. Jessica Rousseau, pager [phone]. HISTORY OF PRESENT ILLNESS Radha Martinez is [...] donor DNA and approximately 40% recipient DNA. [id number]% donor DNA and approximately 0% recipient DNA. [...] right eye. Wears glasses. - Followed by [facility] in [place], [place]. - Patient will notify team if any vision changes. # Blood Products # TACO - Requires infusion of platelets at a slower rate # Disposition - Mrs. Martinez will be discharged today. - EGD with biopsy on 06/01/25. - Ch9 video visit on 06/03/25. - Local labs at [facility] on 06/03/25. - She reports that she previously tolerated prednisone well without hyperglycemia. - Borderline hypertension may be related with prednisone. Hopefully will improve with tapering prednisone. documented in this encounter H&P Notes * Renita Potts, KARON, C.N.P., D.N.P. - 05/28/2025 2:57 PM CDT SUBJECTIVE TRANSPLANT PHYSICIAN Dr. Jessica Rousseau, pager [phone] CHIEF COMPLAINT Ms. Radha Martinez is a [...] reticulin fibrosis noted. 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 The BCR-ABL1 P [...] t(9;22) metaphases. 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 06/17/2024: feeling quite symptomatic since the [...] Access [place] CVC placed on 12/03/24 by [facility]. Social Work Seen and cleared on 10/29/24 [...] prophylaxis: Ursodiol 600 mg two times daily. [facility]: [id number] [...] donor DNA and approximately 40% recipient DNA. [id number]% donor DNA and approximately 0% recipient DNA. [...] right eye. Wears glasses. - Followed by [facility] in [place], [place]. - Patient will notify team if [...] has an appetite this morning. She had syriac toast with syrup, fruit, and an cypriot muffin with jelly prior to being NPO. [...] Muscle Mass: Normal Fluid Accumulation: Absent Reduced Autocad Strength: Not applicable Estimated Needs: Total Calorie Needs: 7051-2012 calories/day Method to Estimate Energy Needs: [place] (Basal to Basal + 10%) Weight [...] about patient's nutritional care please contact pager [phone] on weekdays 07:30-16:00 or [phone] on weekends/holidays ([facility]) [phone]. [1] Past Medical History: Diagnosis Date Amblyopia Bilateral Anemia Anxiety Generalized Disorder Depressive Disorder Fibromyalgia 2020 Headache Unspecified Irritable Bowel Syndrome, Unspecified 2016 Leukemia Migraine Headache Other Injury Of Unspecified Body Region Strabismus [2] Past Surgical History: Procedure Laterality Date EYE SURGERY Right 1989 INSERTION CENTRAL VENOUS LINE N/A 12/03/2024 Procedure: INSERTION CENTRAL VENOUS LINE, [place]; Surgeon: Brianna Hernandez M.D., Ph.D.; Location: [facility] OR [3] Allergies Allergen Reactions Oxycodone GI intolerance [...] (Butrans), 1 patch, transdermal, Weekly, Lito Pollock PKatalinaAKatalina-Satnam. calcium carbonate chewable tablet 200 mg of [...] (Compazine), 10 mg, intravenous, Q6H PRN, Renita Potts, KARON, C.N.P., D.N.P., 10 mg at 05/28/25 1635 sennosides-docusate sodium 8.6-50 mg per tablet 1 tablet (Senokot-S), 1 tablet, oral, BID PRN, Renita Potts APRN, C.N.P., D.N.P. sulfamethoxazole-trimethoprim 400-80 mg per tablet 1 tablet (Bactrim), 1 tablet, oral, Daily, Renita Potts APRN, C.N.P., D.N.P., 1 tablet at 05/29/25 0813 documented in this encounter Nursing Notes * Jarod Reinoso M.S.N., R.N. - 05/29/2025 3:39 PM CDT Problem: [...] Discharge Problem: Risk for Compromised Skin Integrity-Other Bed Laborer(s) Goal: Risk for Compromised Skin Integrity-Other Bed Laborer(s) Outcome: Adequate for Discharge Shift Goals: Clinical [...] d/c with family member. * Nayeli Mcgovern R.N. - 05/28/2025 10:27 PM CDT Patient refused [...] 27 for nausea. She was started on rehlsaahpb78 mg daily on May 28. The next [...] CDT Anesthesia Event Division of Gastroenterology in [place], [place] [address] [place] [phone] Bri Valenzuela M.D. [address] [place] [phone] 06/01/2025 1:15 PM CDT Appointment Division of Gastroenterology in [place], [place] [address] [place] [phone] Lito Pollock P.A.-C. [address] [place] [phone] Jeaneth Núñez M.B.B.S., M.S. [address] [place] [phone] 06/03/2025 7:30 AM CDT Appointment Department of Laboratory Medicine in [address] [phone] Lito Pollock P.A.-C. [address] [place] [phone] 06/03/2025 10:00 AM CDT Telemedicine [facility] [place] [facility] Trans[facility] and Clinical Regeneration in [place], [place] [address] [place] [phone] Tessa Jesus APRN, C.N.P., D.N.P. [address] [place] [phone] 06/10/2025 1:20 PM CDT Nurse Only Section of Infectious Diseases in [place], [place] [address] [place] [phone] Jessica Rousseau M.B.B.S. [address] [place] [phone] 06/15/2025 9:45 AM CDT Appointment Outpatient Procedure Center in [place], [place] [address] [place] [phone] Jessica Rousseau M.B.B.S. [address] [place] [phone] 06/24/2025 12:30 PM CDT Clinical Communication Virtual Review in [place], [place] 200 [place] [phone] 06/25/2025 8:10 AM CDT Lab Department of Laboratory Medicine and Pathology, [facility], in [place], [place] [address] [place] [phone] Tessa Jesus APRN, C.N.P., D.N.P. [address] [place] [phone] 06/25/2025 9:00 AM CDT Office Visit [facility] [place] [facility] Clinical Regeneration in [place], [place] [address] [place] [phone] Tessa Jesus APRN, C.N.P., D.N.P. [address] [place] [phone] 06/25/2025 9:30 AM CDT Nurse Only [facility] Transplantation and Clinical Regeneration in [place], [place] [address] [place] [phone] Tessa Jesus APRN, C.N.P., D.N.P. [address] [place] [phone] 06/25/2025 10:30 AM CDT Office Visit [facility] Transplantation and Clinical Regeneration in [place], [place] [address] [place] [phone] Jessica Rousseau M.B.B.S. [address] [place] [phone] 06/26/2025 10:00 AM CDT Telemedicine Department of Palliative Care in [place], [place] [address] [place] [phone] Isabel Sellers M.D. [address] [place] [phone] Debbie Shay M.D. [address] [place] [phone] documented as of this encounter Procedures Procedure [...] M.P.H. LAB BLOOD ADD-ON F inal Result [facility] [address] [place] [address], [facility] DTL [facility] [address] [place] [address] * (ABNORMAL) CBC with Differential, Blood (05/29/2025 5:18 AM CDT) Pathologist [facility] Hemoglobin 12.4 11.6 - 15.0 g/dL 05/29/2025 [...] M.P.H. LAB BLOOD ADD-ON F inal Result Performing Organization Address [facility] Co de Phone Number [facility] [address] [place] [address] * Lactate (05/28/2025 8:59 PM CDT) Pathologist [facility] Lactate, P 1.8 0.5 - 2.2 mmol/L 05/28/2025 9:54 PM CDT DTL Blood (Blood, Venous) 05/28/2025 8:59 PM CDT 05/28/2025 9:21 PM CDT us Crista Jay M.D., M.P.H. LAB BLOOD NON ADD- ON Final Result Performing Organization Address [facility] Co de Phone Number [facility] [address] [place] [address] * CT Abdomen Pelvis with IV Contrast [...] change since11/03/2024. Renita Potts APRN, C.N.P., D.N.P. G CT PROC EDURES Final Result * Phosphorus Inorganic (05/28/2025 4:31 PM CDT) Phosphorus (Inorganic), S 4.4 2.5 - 4.5 mg/dL 05/28/2025 7:46 PM CDT DTL Blood (Blood, Venous) 05/28/2025 4:31 PM CDT 05/28/2025 4:43 PM CDT Renita Potts APRN, C.N.P., D.N.P. LAB BLOOD A DD-ON Final Result Performing Organization Address City/[facility] Co de Phone Number [facility] 200 [place] [address] * Magnesium (05/28/2025 4:31 PM CDT) Magnesium, S 2.2 1.7 - 2.3 mg/dL 05/28/2025 7:46 PM CDT DTL Blood (Blood, Venous) 05/28/2025 4:31 PM CDT 05/28/2025 4:43 PM CDT us Renita Potts APRN, C.N.P., D.N.P. LAB BLOOD A DD-ON Final Result Performing Organization Address [facility] [place] [address], [place] [address] * (ABNORMAL) Comprehensive Metabolic Panel (05/28/2025 4:31 PM CDT) Potassium, S 4.3 3.6 - 5.2 mmol/L [...] LAB BLOOD A DD-ON Final Result [facility] [address] [place] [address], [facility] [address] [place] [address] * CBC no call back, reflex T/S [...] BLOOD N ON ADD-ON Final Result [facility] [address] [place] [address], [facility] DTL [facility] [address] [place] [address] DHPM [facility] [address] [place] [address] documented in this encounter Visit Diagnoses Diagnosis [...] at 1700 1752 (Given - Provider: Juan Mhamood R.N.) 1600 (Due) buprenorphine 5 mcg/hour 1 patch (Butrans) 1 patch, transdermal, Administer over 7 Days, Weekly, First dose (after last modification) on Sun06/04/25 at 0900, Indications: Chronic Pain/Nonacute Pain cholecalciferol (vitamin D3) tablet 50 mcg 50 mcg, oral, Daily, First dose on Sun05/29/25 at 0900, cholecalciferol (vitamin D3) orderable was interchanged for cholecalciferol (vitamin D3) tablet/capsule 08 (Given - Provid er: Lucy Stout [...] bedtime, First dose on Sun05/28/25 at 2100 2050 (Given - Provider: Nayeli Mcgovern R.N.) penicillin V potassium tablet 500 mg (Veetids) 500 mg, oral, 2 times daily, First dose on Sun05/28/25 at 2100, Drug Monitoring Program: Pharmacist to adjust medication dosing based on indication and drug clearance factors., Indications: Prophylaxis, medical 2050 (Given - Provider: Nayeli Mcgovern RFritz) 0813 (Given - Provider: Lucy Stout R.N., [...] mL (COMPLETED) 1-100 mL, intravenous, Once, On Sun05/28/25 at [...] x1 dose in 2 hours, Starting on Sun05/28/25 at 1547, Maximum dose is 4 mg [...] Guidelines 1738 (Given - Provider: Judah Ibrahim) naloxone injection [...] nausea, vomiting, Starting on Sun05/28/25 at 1547 prochlorperazine injection 10 mg (Compazine)(Linked Group 3) 10 mg, intravenous, Every 6 hours PRN, nausea, vomiting, active vomiting or unable to tolerate PO dose, Starting on Sun05/28/25 at 1547 1635 (Given - Provider: Juan Mahmood R.N.) 1050 (Given - Provider: Lucy Stout R.N., [facility] prochlorperazine tablet 10 mg (Compazine)(Linked Group 3) 10 mg, oral, Every 6 hours PRN, nausea, Starting on Sun05/28/25 at 1547 1635 (See Alternative - Provider: Juan Mahmood R.N.) 1050 (See Alternative - Provider: Lucy Stout R.N., [facility] sennosides-docusate sodium 8.6-50 mg per tablet 1 tablet (Senokot-S) 1 tablet, oral, 2 times daily PRN, constipation, Starting on Sun05/28/25 at 1547 Linked Groups Order Group 1: [...] nausea, vomiting, Starting on Sun05/28/25 at 1547 Or ondansetron (PF) injection 8 mg (Zofran)Jump to med 8 mg, intravenous, Every 8 hours PRN, nausea, vomiting, active vomiting or unable to tolerate PO dose, Starting on Sun05/28/25 at 1547 Group 3: prochlorperazine tablet 10 [...] Total Score: 2 12/10/19 25 2:46 PM NET WEB APPLICATION DEVELOPER documented as of this encounter Care Teams Roof [employer]er Relationship Specialty Start Date End Date Renzo Andres M.D. [address] [place] [address] [place] [phone] PCP - General Family Medicine 04/25/23 documented as of this encounter
[2025-05-31] VITALS (14 sets, daily range): BP systolic 112–152; BP diastolic 78–98; PULSE 60–98; RESP 6–34; TEMP 36.2; O2SAT 92–98; BMI 33.6
--- OUTSIDE RECORDS SUMMARY | 2025-05-31 14:34 | XMS_ITS | Clinical Summary ---
Author Organization [facility] Address [address] [place] [phone] Care Team Providers Care Ed Case Manager Name Role Phone System, Provider Not In Primary Care Provider Un available Allergies Active Allergy Reactions Criticality Noted Date Comments Amoxicillin Swelling 03/01/2017 Bupropion Swelling 03/01/2017 Grapefruit Extract Other (See Comments) 021 Interaction with Tasigna medication Interaction with Tasigna medication Medications prochlorperazin e (COMPAZINE) 10 MG tablet Take as needed 03/22/2021 Active ondansetron (ZOFRAN) 4 MG tablet Take as needed 02/09/2021 Active hydrochlorothia zide (HYDRODIURIL) 25 MG tablet Take 25 mg by mouth daily 01/03/2021 Active DULoxetine (CYMBALTA) 60 MG capsule Take 1 Capsule (60 mg) by mouth once daily. Take along with the 30mg cap for a total daily dose of 90mg daily 03/28/2022 Active dasatinib (SPRYCEL) 100 MG tablet Take 100 mg by mouth daily Will increase to 140 MG in 1 week 03/15/2022 Active dasatinib (SPRYCEL) 140 MG tablet Take 1 tablet (140 mg total) by mouth daily. Take with or without food at the same time each day. Swallow whole. Do not break, cut, or crush. 05/26/2022 Active DULoxetine (CYMBALTA) 30 MG capsule Take 1 Capsule (30 mg) by mouth once daily. Take along with the 60mg cap for a total daily dose of 90mg daily 01/19/2023 Active Hospital, Clinic, or Other Facility Administered Medication Ordered Dose Route Frequency Start Date End Date Status botulinum toxin type A (BOTOX) 100 units injection 200 UnitsIndications:Chron ic migraine without aura, intractable, without status migrainosus 200 Units IM EVERY 3 MONTHS 09/18/2024 12/11/2025 Active Social History Tobacco Use Types Packs/Day Years Used Date Smoking Tobacco: Never Smokeless Tobacco: Never Tobacco Cessation:Counseling Given: Not Answered PHQ-2 Answer Date Recorded PHQ-2 Score 2 11/23/2022 Adolescent Education Answer Date Record ed Getting School Help Needed Not on file 08/11 Comments Unknown Sex and Gender Information Value Date Recorded Sex Assigned at Not on file Legal Sex Female 12:12 PM CDT Gender Identity Not on file Sexual Orientation Not on file Last Filed Vital Signs Vital Sign Reading Time Taken Comments Blood Pressure 118/81 03/13/2024 2:36 PM CDT Pulse 108 03/13/2024 2:36 PM CDT Temperature - - Respiratory Rate - - Oxygen Saturation - - Inhaled Oxygen Concentration - - Weight - - Height - - Body Mass Index - - Plan of Treatment Upcoming Encounters Date Type Department Care Team (Late st Contact Info) Description 07/07/2025 2:40 PM CDT Office Visit [address] [place] [phone] Madeleine Roberts MD [address] [place] [address] [place] [phone] Health Maintenance Due Date Last Done Comments ADVANCE CARE PLANNING 1989 ANNUAL REVIEW OF HM ORDERS 1989 DIABETES SCREENING 1989 MEDICARE ANNUAL WELLNESS VISIT 2007 PNEUMOCOCCAL VACCINE: PEDIAT RICS (0 to 5 YEARS) AND AT-RISK PATIENTS (6 to 49 YEARS) (1 of 2 - PCV) 02/03/2008 ZOSTER VACCINE (1 of 2) 02/03/2008 DTAP/TDAP/TD VACCINE (3 - Td or Tdap) 09/02/2022 09/02/2012, 07/10/2003 PAP 10/15/2022 10/15/2019, 11/25/2013 COVID-19 VACCINE (4 - 2023-2 5 season) 2024 11/10/2021, 03/30/2021, 03/02/2021 PHQ-2 (once per calendar year) 2024 11/23/2022 , 06/08/2022 INFLUENZA VACCINE (Season Ended) 2025 09/26/2019, 09/02/2012, 08/14/2011, Additional history exists HEPATITIS B VACCINE Completed 03/07/2001, 02/19/2001, 10/31/2000, Additional history exists MENINGITIS VACCINE Completed 04/26/2007 HPV VACCINE Completed 11/08/2007, 07/2007, 04/26/2007 HIV SCREENING Completed 12/26/2010 HEPATITIS C SCREENING Completed 08/02/2023, 019 Insurance [facility] MEDICARE [facility] MEDICARE Care Teams Ed Case Manager Relationship Specialty Start Date End Date System, Provider Not In PCP - General Clinic 06/08/22
--- OUTSIDE RECORDS SUMMARY | 2025-05-31 14:34 | XMS_ITS | Clinical Summary ---
Author Organization [facility] Address [address] [place] [address] Care Team Providers Care Cod Clerk Name Role Phone Antoinette Palacio PhD, LP Unavailable [phone] Shweta Graciakim Huber MENTAL HEALTH AIDES TEACHER Unavailable [phone] Unavailable [phone] Staff, Other Clinical Unavailable UnavailErmelinda Cadet MD Primary Care Prov ider Allergies Active Allergy Reactions Criticality Noted Date Comments Amoxicillin Edema 03/01/2017 Grapefruit Other - Describe In Comment Field 06/28/2021 Interaction with Tasigna medication Grapefruit Extract Other - Describe In Comment Field 06/28/2021 Interaction with Tasigna medication Interaction with Tasigna medication Bupropion Edema 03/01/2017 Medications dasatinib (SpryceL) 140 mg tablet Take 1 Tablet (140 mg) by mouth once daily. 0 08/09/20 22 Active cholecalciferol, Vitamin D3, 2,000 unit tablet Take 1 Tablet (2,000 units) by mouth once daily. 0 Active onabotulinumtoxinA (BOTOX) 100 unit solr Inject 200 units intramuscular. 08/22/20 22 Active ketoconazole 2% shampoo (NIZORAL) 2 % shampoo Apply 1 Application topically to affected area(s) one time if needed. 04/24/20 23 Active prochlorperazine (COMPAZINE) 5 mg tabletIndications: Chemotherapy induced nausea and vomiting Take 1 Tablet (5 mg) by mouth every 6 hours if needed for Nausea/Vomiting . 30 Tablet 07/25/20 23 Active ondansetron (ZOFRAN ODT) 4 mg disintegrating tabletIndications: Nausea Place 1 Tablet (4 mg) on the tongue every 8 hours if needed for Nausea/Vomiting . 30 Tablet 06/23/20 24 Active hydrOXYzine HCL (ATARAX) 25 mg tabletIndications: Generalized anxiety disorder,MDD (major depressive disorder), recurrent episode, mild Take 1-2 Tablets (25-50 mg) by mouth every 6 hours if needed for Anxiety. 90 Tablet 3 06/23/20 24 Active DULoxetine (CYMBALTA) 60 mg Delayed-release capsuleIndications :MDD (major depressive disorder), recurrent episode, moderate (HC) Take 2 Capsules (120 mg) by mouth once daily. 60 Capsule 2 07/14/20 24 Active Active Problems Problem Noted Date Diagnosed Date Encounters for administrative purposes 5 Encounters for administrative purposes 4 Obesity (BMI 30.0-34.9) 09/20/2022 Insulin resistance 09/20/2022 Obesity, Class II, BMI 35-39.9 07/07/2022 Weight gain 07/07/2022 Eating disorder 07/07/2022 Chronic mixed headache syndrome 06/17/2019 Localized enlarged lymph nodes 04/03/2019 Pain in joint 03/06/2019 Chronic myeloid leukemia 12/11/2018 Controlled substance agreement signed 04/09/2017 Overview (03/19/2018): Signed 11/20/2016 Dr Mady Yanez Psychiatry Relationship problems 02/08/2017 Grief 02/08/2017 Major depressive disorder, recurrent episode, mo derate 06/15/2016 Generalized anxiety disorder 01/07/2015 Adjustment disorder with anxious mood 01/07/2015 Contraception 04/03/2013 Tension headache Resolved Problems Problem Noted Date Diagnosed Date Resolved Date Depression, major, recurrent, moderate 09/13/2015 06/15/2016 Major depressive disorder, r ecurrent, severe without psychotic features 08/05/2015 09/13/2015 Depression, 08/09/201102/08 Supervision of normal first 01/06/2011 07/12/2011 Attention deficit disorder w ithout mention of hyperactivity 12/30/2009 03/27/2012 Major depressive disorder, r ecurrent episode, unspecified 06/30/2008 01/06/2011 Encounters Date Type Department Care Team Description 05/29/2025 Telephone Formerly Named [facility] [address] [place] [address] Iris Victor LICSW Care Coordination (Re Engagement ) 05/28/2025 Telephone Formerly Named [facility] [address] [place] [address] Renita Pichardo PsyD, FIDENCIO FYI (Regarding appointment) 05/20/2025 1:45 PM CDT Telemedicine Formerly Named [facility] [address] [place] [address] Renita Pichardo PsyD, LP Psychotherapy 05/12/2025 1:45 PM CDT Telemedicine Formerly Named [facility] [address] [place] [address] Renita Pichardo PsyD, LP Psychotherapy 05/08/2025 Telephone [facility] [address] [place] [address] Felicia Weathers NP Follow Up 05/06/2025 Telephone [facility] [address] [place] [address] Ermelinda Pierre MD ACC Order Request 05/04/2025 11:15 AM CDT Telemedicine Formerly Named [facility] [address] [place] [address] Renita Pichardo PsyD, LP Psychotherapy 04/20/2025 11:15 AM CDT Telemedicine Formerly Named [facility] [address] [place] [address] Renita Pichardo PsyD, LP Psychotherapy 04/06/2025 11:15 AM CDT Telemedicine Formerly Named [facility] [address] [place] [address] Renita Pichardo PsyD, LP Psychotherapy 03/23/2025 11:15 AM CDT Telemedicine Formerly Named [facility] [address] [place] [address] Renita Pichardo, [place], FIDENCIO Psychotherapy; Trmt Plan from Last 3 Months Immunizations Immunization Administration Dates Next Due COVID-19 vaccine (Moderna 100mcg/0.5mL) SYLVIA JAY 11/10/2021 Hepatitis B (Adult) 03/07/2001,10/31/2000,1999 Hepatitis B (Peds) 02/19/2001,10/31/2000, 000 Human Papilloma Virus Vaccine 11/08/2007, 007,04/26/2007 Influenza Virus, Unspecified 09/02/2012, 08/14/2011,10/19/2003,09/17,01/22/2002 Influenza, IIV3 (Age 6-35 mos) 08/14/2011 Influenza, IIV3 (Age >=3 years) 09/02/20 12,08/14/2011,10/19/2003,09/17,01/22/2002 Influenza, IIV4 09/26/2019 MMR 04/25/2001,03/07/2001 Meningococcal Vaccine (Menactra) 04/26/2007 Td (Age >=7 Years) 07/10/2003 Tdap 09/02/2012 Family History Medical History Relation Name Comments Cystic fibrosis Brother Hyperlipidemia Father Hypertension Father Endometriosis Maternal Aunt Coronary artery disease Maternal Grandfather Diabetes Maternal Grandfather Other Maternal Grandfather substan ce abuse dependence Cancer-breast Maternal Grandmother Obesity Maternal Grandmother Other Maternal Grandmother substan ce abuse dependence Anxiety disorder Mother Depression Mother Endometriosis Mother Hyperlipidemia Mother Hypertension Mother Obesity Mother Endometriosis Other 1 maternal cousi ns Cancer-breast Other 2 maternal great grandma Cancer-breast Other 3 maternal cousi n Cancer-breast Paternal Aunt Dementia Paternal Grandfather Relation Name Status Comments Brother Alive x1 Father (Age 50) motorcycle accident Maternal Aunt Maternal Grandfather (Age 81) Maternal Grandmother (Age 63) BR EAST CX Mother Alive Other 1 Other 2 Other 3 Paternal Aunt Paternal Grandfather Paternal Grandmother Alive Social History Tobacco Use Types Packs/Day Years Used Date Smoking Tobacco: Never Smokeless Tobacco: Never Tobacco Cessation:Counseling Given: Not Answered Alcohol Use Standard Drinks/Week Comments No 0 (1 standard drink = 0.6 oz pur e alcohol) PHQ-2 Answer Date Recorded PHQ-2 TOTAL SCORE 6 09/30/2024 Social Connections Answer Date Recorded Frequency of Communication with Friends and Fami ly 4 04/13/2022 Alcohol Use Answer Date Recorded How often do you have a drink containing alcohol ? 0 03/28/2022 Average Number of Drinks Not on file 022 Frequency of Binge Drinking Not on file 03/19 Financial Resource Strain Answer Date R ecorded Difficulty of Paying Living Expenses 2 04/13/2022 Difficulty of Paying Living Expenses 1 04/13/2022 Food Insecurity Answer Date Recorded Worried About Running Out of Food in the Last Ye ar 1 04/13/2022 Transportation Needs Answer Date Record ed Lack of Transportation (Medical) 1 04/13/2022 Housing Stability Answer Date Recorded Unable to Pay for Housing in the Last Year 1 04/13/2022 Interpersonal Safety Answer Date Record ed Are you being hit, kicked, p ushed or yelled at (see row info)? No 11/21/2023 Interpersonal Safety Abuse 12 - 18 Not on file 11/21/2023 Interpersonal Safety Ambulatory Vulnerability No t on file 11/21/2023 Comments No Sex and Gender Information Value Date Recorded Sex Assigned at Not on file Legal Sex Female 5:23 AM WIRE PREPARATION MACHINE TENDER Gender Identity Not on file Sexual Orientation Not on file Occupation Industry Job Start Date Job End Date [employer] Not on file Not on file Not on file Obstetrics History Para Term AB IAB SAB Ectopic Multiple Livin g Live Births 2 0 0 0 1 1 0 0 0 0 Date Outcome GA Total Labor Labor/2nd/3rd Weight Sex Type Anes PTL Vicki A1 A5 Name Clin Comments:System Genera hue. Please review and update details. IAB Last Filed Vital Signs Vital Sign Reading Time Taken Comments Blood Pressure 119/79 06/23/2024 10:48 AM CDT Pulse 81 06/23/2024 10:48 AM CDT Temperature 36.2 C (97.1 F) 11/21/2023 9:09 AM WIRE PREPARATION MACHINE TENDER Respiratory Rate 18 11/21/2023 9:09 AM WIRE PREPARATION MACHINE TENDER Oxygen Saturation 98% 06/23/2024 10:48 AM CDT Inhaled Oxygen Concentration - - Weight 99.1 kg (218 lb 8 oz) 06/23/2024 10:48 AM CDT Height 172 cm (5' 7.72) 06/23/2024 10:48 AM CDT Body Mass Index 33.5 06/23/2024 10:48 AM CDT Plan of Treatment Upcoming Encounters Date Type Department Care Team (Late st Contact Info) Description 06/01/2025 8:45 AM CDT Telemedicine Formerly Named [facility] [address] [place], [place] [id number] Renita Pichardo PsyD, FIDENCIO [address] [facility] [address] [place], [place] [address] 06/05/2025 1:00 PM CDT Telemedicine [facility] [address] [place] [address] Felicia Weathers, MUSTAPHA [address] [place] [address] Health Maintenance Due Date Last Done Comments Pneumococcal series for age 6-49 (1 of 2 - PCV) 02/03/2008 Tetanus booster 09/02/2022 09/02/2012, 07/10/2003 Pap test for age 21-65 10/15/2022 9 (Verified in Care Everywhere or Patient Record), 11/25/2013, 03/03/2011, Additional history exists COVID-19 vaccine series ( season) 2024 11/10/2021, 03/30/2021, 03/02/2021 BMI (ht and wt on same day) for age 18+ 06/23/2025 06/23/2024, 02/15/2023, 09/19/2022, Additional history exists Influenza Vaccine (#1) 2025 9, 09/02/2012, 09/02/2012, Additional history exists Depression screening for age 12+ 10/02/2025 10/02/2024, 09/30/2024, 09/30/2024, Additional history exists Hepatitis B series for 19+ Completed 03/07, 02/19/2001, 10/31/2000, Additional history exists HIV for age 15-65 Completed 12/26/2010 Hepatitis C screening for ag e 18-79 Completed 08/02/2023 Procedures Procedure Name Priority Date/Time Associated Diagnosis Comments ANTI HCV Routine 08/02/2023 1:57 PM CDT Need for hepatitis C screening test TELEGRAPH PLANT MAINTAINER THIN PREP PAP SCREEN IMAGED Routine 11/25/2013 11:15 AM WIRE PREPARATION MACHINE TENDER Screening for malignant neoplasm of the cervix ANTI HIV 1/2 Routine 12/26/2010 5:05 PM WIRE PREPARATION MACHINE TENDER Supervision of normal first (HC) from Last 3 Months or Most Recently Relevant to Health Maintenance Results * ANTI HCV (08/02/2023 1:57 PM CDT) HEPATITIS C ANTIBODY Non-Reacti ve Non-React nina 08/03/2023 3:36 PM CDT [facility] Comment:Please note, per www .CDC.gov: If a patient is known to be at high risk of HCV infection, or is symptomatic, and the physician's suspicion of HCV infection is high, HCV RNA testing is often employed and is of diagnostic value, even after an initial negative anti-HCV test result. Blood BLOOD SPECIMEN / Unknown Venipuncture / Unknown 08/02/2023 1:57 PM CDT 08/02/2023 1:57 PM CDT Estefany BLAND SEND OUTS Final Result [facility] SENDOUT INTERNAL ZIP [id number] [address] [place] [address] * TELEGRAPH PLANT MAINTAINER THIN PREP PAP SCREEN IMAGED (11/25/2013 11:15 AM WIRE PREPARATION MACHINE TENDER) Pathologist [facility] CYTOLOGY CYTOPATHOLOGY REPORT [facility] Status: Final Status [id number] CLINICAL INFORMATION Last Date of LMP :11/17/13 Last Pap Date :03/03/2011 Last Pap Result :NIL ABN [place]/Bx Past 5 YRS :None Hormone Usage :BCP/OCP/Patch/Rin g Menstrual Status :Regular Periods [place]/Bx done today :No Additional Information :None given HPV Request :HPV if ASCUS SPECIMEN SOURCE :Cervical/vaginal ThinPrep Vial, screening SPECIMEN ADEQUACY :Satisfactory for evaluation Endocervical component present. INTERPRETATION/RES ULT Negative for intraepithelial lesion or malignancy (NIL) Cytology 1st Screener :socrates Signed by :socrates This specimen was screened by the FDA approved ThinPrep Imaging System and manually reviewed. NOTE: The Pap test is a screening technique, not a diagnostic procedure. It is used primarily to screen for squamous cancers and precursor lesions. Published studies have shown that it is subject to both false negative and false positive results. The pap test should not be used as the sole means to diagnose or exclude pre-malignant and malignant lesions. COLLECTED:11/25/13 ACCESSIONED: 11/26/13 SIGNED: 12/02/13 [facility] PAP [place] CODE NIL [facility] Tissue specimen (specimen) (Cervical/Vagina l) 11/25/2013 11:15 AM WIRE PREPARATION MACHINE TENDER 11/25/2013 11:12 AM WIRE PREPARATION MACHINE TENDER Lindarickey Costa PATHOLOGY/CYTOLOGY Final Resu lt [facility] INTERNAL ZIP [id number] [place] [id number] * ANTI HIV 1/2 (12/26/2010 5:05 PM WIRE PREPARATION MACHINE TENDER) ANTI HIV 1/2 Non-reacti ve [facility] Blood specimen (specimen) BLOOD SPECIMEN / Unknown 12/26/2010 5:05 PM WIRE PREPARATION MACHINE TENDER 12/26/2010 4:55 PM WIRE PREPARATION MACHINE TENDER Ladonna Nathan CIGARETTE INSPECTOR SEND OUTS Final Result [facility] INTERNAL ZIP [id number] [address] from Last 3 Months or Most Recently Relevant to Health Maintenance Insurance MEDICARE [place] ONLY MEDICARE PART A HB ONLY MEDICARE PART B HB ONLY [facility] [phone] (Home) ATTN: FRANK WHITE [phone] [id number] Care Teams Cod Clerk Relationship Specialty Start Date End Date Ermelinda Pierre MD [address] [place] [address] PCP - General Family Practice 06/23/24 Antoinette Palacio, PhD, LP Psychologist Psychology 04/24/12 Gracia Rock CNS [address] [place] [address] Consulting Physician Clinical Nurse Specialist 07/07/[address] [place] [address] Registered Dietitian Quality Assurance Group Leader 07/07/22 Staff, Other Clinical . Therapist Mental Health 07/03/22
--- NOTE | 2025-05-31 14:54 | ED_ITS ---
HPI - General Adult General Date Seen: 05/31/25 Chief complaint: Chest Pain Stated complaint: chest pain 04/28 Time Seen by Provider: 05/31/25 14:54 History of Present Illness HPI narrative: 35 yo F presenting to the ER for evaluation of chest pain. She has had 3 intermittent episodes of chest pain that began since about midnight last night. Each 1 lasted about 20 minutes. When the pain is present it is in the substernal region and radiates up to her throat. She has no history of heart disease. 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 in [place]. She has a history of CML. She has undergone bone marrow transplant and follows with oncology at [facility]. She has been having trouble recently with some fatigue and nausea. She has Compazine at home for that. She is already on a proton pump inhibitor. She is scheduled to have an endoscopy tomorrow at [facility]. 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 She otherwise has not had any trouble with liver or kidney failure, significant blood count dyscrasias, per the patient's report. She has no history of DVT or PE. No history of coronary disease, pericarditis. Per medical record she was seen here in the ER in July 2022 for chest pain. Workup was negative. Her symptoms began about midnight last night. She had been in her usual state of health yesterday. She was awoken from sleep at about midnight with a 20 minute episode of discomfort in her upper central chest radiating up into her throat. It lasted about 20 minutes and then resolved spontaneously. She was able to go back to sleep. This morning she was well until about 8:00 a.m.. She was resting and not eating at about 8 when she had another episode of discomfort that lasted about 20 minutes and then resolved. She ate breakfast at about 11:00 a.m.. She had another episode of pain that happened about 2. All 3 of them more in the upper central chest and to her neck. No pain through to the back. No palpitations. No nausea. No shortness of breath. She has not had recent cough or fever. No swelling in her legs. No abdominal pain. No right upper quadrant pain. Related Data Home Medications ?Medication ?Instructions ?Recorded ?Confirmed duloxetine 60 mg capsule,delayed mg PO 08/06/22 release acyclovir 400 mg tablet 400 mg PO BID 05/31/2505/31 aripiprazole 10 mg tablet 10 mg PO DAILY 05/31/2505/19 buprenorphine 5 mcg/hour weekly 1 patch topical chroni c pain 05/31/25 transdermal patch gabapentin 300 mg capsule mg PO 05/31/25 hydromorphone 1 mg/mL oral liquid 0.5 mg PO DAILY PRN pain 05/31/25 05/31/25 ketoconazole 2 % shampoo topical 05/31/25 ondansetron 4 mg disintegrating 4 - 8 mg PO Q8H PRN na usea/vomiting 05/31/25 05/31/25 tablet pantoprazole 40 mg tablet,delayed 40 mg PO BID 5 05/31/25 release penicillin V potassium 500 mg 500 mg PO BID 05/31/25 0 05/31/25 tablet posaconazole 100 mg tablet,delayed mg PO 05/31/25 release prochlorperazine maleate 10 mg 10 mg PO Q6H PRN 05/31/25 tablet Allergies Allergy/AdvReac Type Severity Reaction Status Date / Time grapefruit Allergy Intermediate other Verified 05/31/25 14:41 amoxicillin Allergy Mild other Verified 05/31/25 14:41 bupropion (From Wellbutrin) Allergy Mild other Verified 05/31/25 14:41 PFSH PFSH Social History Smoking Status: Never smoker Do you use any of these nicotine containing products: None Second hand tobacco smoke exposure: No How often do you have a drink containing alcohol: never How often do you have six or more drinks on one occasion: Never AUDIT-C Alcohol total score: 0 Non-prescribed substance use: denies use service: No Exam Narrative: Exam Narrative: Constitutional: Appears well-developed and well-nourished. Alert. Conversant. Non toxic. HENT: Head: Atraumatic. Nose: Nose normal. Mouth/Throat: Oral mucosa is clear and moist. no trismus. Pharynx normal. Tonsils symmetric. No tonsillar enlargement, erythema, or exudate. Eyes: Conjunctivae normal. She does have right eye esotropia. Otherwise, EOM normal. Pupils equal, round, and reactive to light. No scleral icterus. Neck: Normal range of motion. Neck supple. No tracheal deviation present. No JVD Cardiovascular: Normal rate, regular rhythm. No gallop. No friction rub. No murmur heard. Symmetric radial and PT artery pulses Pulmonary/Chest: Effort normal. No stridor. No respiratory distress. No wheezes. No rales. No rhonchi . No tenderness. Abdominal: Soft. Bowel sounds normal. No distension. No mass. No tenderness. No right upper quadrant tenderness. No epigastric tenderness. No rebound. No guarding. Musculoskeletal: RUE: Normal range of motion. No tenderness. No deformity LUE: Normal range of motion. No tenderness. No deformity RLE: Normal range of motion. No edema. No tenderness. No deformity LLE: Normal range of motion. No edema. No tenderness. No deformity Neurological: Alert and oriented to person, place, and time. Normal strength. CN II-VII intact. No sensory deficit. GCS eye subscore is 4. GCS verbal subscore is 5. GCS motor subscore is 6. Normal coordination Skin: Skin is warm and dry. No rash noted. No pallor. Normal capillary refill. Psychiatric: Normal mood. Normal affect. Very polite. Const: Vital Signs, click to edit/add: Vital Signs - 24 hr 05/31/25 14:48 05/31/25 15:44 05/31/25 15:45 Temperature 97.1 F L Pulse Rate Pulse Rate [Pulse Oximeter] 98 Respiratory Rate 18 19 9 L Blood Pressure Blood Pressure [Ri ght Upper Arm] 136/94 H Pulse Oximetry 96 Oxygen Delivery Me thod Room Air 05/31/25 16:00 05/31/25 16:15 05/31/25 16:20 Temperature Pulse Rate Pulse Rate [Pulse Oximeter] Respiratory Rate 8 L 10 L 8 L Blood Pressure 112/78 Blood Pressure [Ri ght Upper Arm] Pulse Oximetry Oxygen Delivery Me thod 05/31/25 16:30 Temperature Pulse Rate 80 Pulse Rate [Pulse Oximeter] Respiratory Rate 17 Blood Pressure Blood Pressure [Ri ght Upper Arm] Pulse Oximetry 98 Oxygen Delivery Me thod Course Vital Signs Vital signs: Initial Vital Signs Temperature 97.1 F L 05/31/25 14:48 Temperature Source Temporal Artery Scan 05/31/25 14:48 Pulse Rate 98 05/31/25 14:48 Respiratory Rate 18 05/31/25 14:48 Blood Pressure 136/94 H 05/31/25 14:48 Blood Pressure Mean 108 H 05/31/25 14:48 Blood Pressure Position Sitting 05/31/25 14:48 Pulse Oximetry 96 05/31/25 14:48 Oxygen Delivery Method Room Air 05/31/25 14:48 Vital Signs Temperature 97.1 F L 05/31/25 14:48 Pulse Rate 98 05/31/25 14:48 Respiratory Rate 18 05/31/25 14:48 Blood Pressure 136/94 H 05/31/25 14:48 Pulse Oximetry 96 05/31/25 14:48 Oxygen Delivery Method Room Air 05/31/25 14:48 Temperature 97.1 F L 05/31/25 14:48 Pulse Rate 80 05/31/25 16:30 Respiratory Rate 17 05/31/25 16:30 Blood Pressure 112/78 05/31/25 16:20 Pulse Oximetry 98 05/31/25 16:30 Oxygen Delivery Method Room Air 05/31/25 14:48 Medical Decision Making MDM Narrative Medical decision making narrative: This patient presents to the ER today for evaluation of chest pain that has occurred in 3 separate episodes since midnight. None of the episodes are exertional and history provided is not really follow-up pattern suggestive for angina or ACS.. Differential was broad. No evidence of palpitations, syncope or other cardiac dysrhythmia. We considered possible ACS to be unlikely but not definitively 0. Fortunately workup with EKG and delta troponins is negative. Given time since onset of symptoms, we did check initial and delta troponins. I do not think the patient needs to be admitted for further sets of enzymes. EKG shows no evidence for pericarditis. Clinical presentation not suggestive of myocarditis. Chest x-ray shows no evidence for pneumonia, pneumothorax, pulmonary edema, pleural effusion, rib fracture, cardiomegaly. Mediastinum is normal on the x-ray. The patient has no ripping or tearing pain through to the back and has symmetric pulses on exam, no other acute neuro findings so I doubt aortic dissection. Risk of radiation and contrast exposure would outweigh the benefit of CT angiogram. We considered PE for this patient. Main risk factor would be history of CML. She does not have any history of PE, leg swelling. Overall would be low risk but not 0 risk. Screening D-dimer is obtained and is. No wheezing or bronchospasm to suggest COPD/asthma. No signs of chest wall cellulitis, shingles, injury. Patient does endorse a recent problem with some nausea that is suspected to be related to esophagus problems. She is already on acid medicine through her d octors at [facility] and already has a endoscopy scheduled for her esophagus tomorrow. Unclear for chest pains could be related to her esophagus, or potentially related to anxiety about the upcoming procedure. I encouraged her to keep that procedure for further workup tomorrow. With reasonable clinical confidence, I think the patient is safe for outpatient follow up. Discussed return precautions. Questions answered. Patient voices comfort with the plan. Lab Data Labs: Lab Results 05/31/25 05/31/25 Range/Units 15:18 17:30 WBC 5.26 (4.50-11.00) K/uL RBC 4.51 (4.00-5.20) m/uL Hgb 12.3 (12.0-16.0) gm/dL Hct 37.9 (33.0-51.0) % MCV 84 (80-100) fL MCH 27 (26-34) pg MCHC 33 (32-36) gm/dL RDW Coeff of [place] 14.0 (11.5-15.5) % Plt Count 204 (140-440) K/uL Neut % (Auto) 82.2 H (42.0-72.0) % Lymph % (Auto) 10.3 L (20-44) % Bowie % (Auto) 5.7 (0.0-11.0) % Eos % (Auto) 0.6 (0.0-7.0) % Baso % (Auto) 0.2 (0.0-3.0) % Neut # (Auto) 4.30 (1.7-7.0) K/uL Lymph # (Auto) 0.50 L (0.90-2.90) K/uL Bowie # (Auto) 0.30 (0.00-0.90) K/UL Eos # (Auto) 0.03 (0.00-0.50) K/uL Baso # (Auto) 0.01 (0.00-0.30) K/uL Abs Immat Gran (auto) 0.05 (0.00-0.30) K/uL Imm/Tot Granulo (auto) 1.0 % D-Dimer Quant (PE/DVT) < 0.27 (0.00-0.50) ug/ml Sodium 136 (135-149) mmol/L Potassium 3.9 (3.6-5.1) mmol/L Chloride 102 (96-114) mmol/L Carbon Dioxide 26 (20-32) mmol/L Anion Gap 8 (7-15) mEq/L BUN 17 (5-24) mg/dL Creatinine 0.8 (0.5-1.5) mg/dL Estimated Creat Clear 98.07 Estimated GFR 98 ml/min Glucose 151 H (60-115) mg/dL Calcium 9.3 (8.4-10.6) mg/dL POC Troponin I 0.00 L 0.00 L (0.01-0.04) ng/ml Imaging Data Chest x-ray: Attestation: I have reviewed the pertinent imaging results. My impression: Normal. Normal cardiac silhouette. Mediastinum. Clear lungs puentes. No evidence for pneumonia, pneumothorax, pulmonary edema. No pleural effusion. Radiologist's impression: IMPRESSION: Normal chest radiographs. ECG Data Interpretation: Normal sinus rhythm Rate 82 MA interval 188 Normal QRS axis. No pathologic Q-waves. Computer notes ?cannot rule out anterior infarct? but I do not think it anterior infarct is present. No Q-waves. No ST segment elevation. ST segment and T-wave show no sign of acute ST elevation or depression. QTC 390 Discharge Plan Discharge Clinical Impression: Chest pain Patient Disposition: Home, Self-Care Condition: Stable Instructions: Chest Pain (DC) Additional Instructions: As we discussed, so far your workup looks reassuring. However, please come back to the ER right away if you have worsening pains, shortness of breath, or other worsening symptoms. Please follow-up with her doctors tomorrow [facility] for your endoscopy and get a recheck with your regular doctor within 3-5 days. Prescriptions: No Action duloxetine 60 mg capsule,delayed release(/EC) PO acyclovir 400 mg tablet 400 mg PO BID gabapentin 300 mg capsule PO aripiprazole 10 mg tablet 10 mg PO DAILY buprenorphine 5 mcg/hour patch weekly 1 patch topical ketoconazole 2 % shampoo topical penicillin V potassium 500 mg tablet 500 mg PO BID prochlorperazine maleate 10 mg tablet 10 mg PO Q6H PRN pantoprazole 40 mg tablet,delayed release (/EC) 40 mg PO BID ondansetron 4 mg tablet,disintegrating 4 - 8 mg PO Q8H PRN (Reason: nausea/vomiting) hydromorphone 1 mg/mL liquid 0.5 mg PO DAILY PRN (Reason: pain) posaconazole 100 mg tablet,delayed release (DR/EC) PO Follow Up/Referrals: Anny Matthews FOREIGN EXCHANGE TRADER [Primary Care Provider, Family Practice] Stand Alone Forms: [facility] Info Instructions
[2025-05-31 15:40] LABS: Hematocrit 37.9 % (33.0-51.0); Hemoglobin* 12.3 gm/dL (12.0-16.0); Immature Granulocytes Abs Auto 0.05 K/uL (0.00-0.30); Immature Granulocytes Pct Auto 1.0 %; Mean Corpuscular HGB Conc 33 gm/dL (32-36); Mean Corpuscular Hemoglobin 27 pg (26-34); Mean Corpuscular Volume 84 fL (80-100); RDW Coefficient of Variation % 14.0 % (11.5-15.5); Red Blood Count 4.51 m/uL (4.00-5.20); White Blood Count* 5.26 K/uL (4.50-11.00)
[2025-05-31 15:44] LABS: Lymphocytes Absolute Auto 0.50 K/uL (0.90-2.90); Slide Review Reflex No
[2025-05-31 15:48] LABS: Troponin, Point-of-Care* 0.00 ng/ml (0.01-0.04)
--- OUTSIDE RECORDS SUMMARY | 2025-05-31 15:53 | XMS_ITS | Encounter Summary ---
Author Organization [facility] Address [address] [place] [address] Care Team Providers Care Manager Electrical Name Role Phone Renzo Andres M.D. Primary Care Provider Reason for Visit * Reason Onset Date Comments Communication 03/23/2025 D100 Reschedule Encounter Details Date Type Department Care Team (Latest Contact Info) Description 03/23/2025 Clinical Communication [facility] in [place], [place] [address] [place] [address] Jessica Rousseau M.B.B.S. [address] [place] [phone] Communication (D100 Reschedule) Social History Tobacco Use Types Packs/Day Years Used Date Smoking Tobacco: Never Smokeless Tobacco: Never Alcohol Use Standard Drinks/Week Comments Yes 0 (1 standard drink = 0.6 oz pur e alcohol) social [facility] Utilities Answer Date Recorded In [...] your living situation today? I have a [facility] place to live 12/19/2024 Education Answer Date Recorded What is the highest level of school you have completed or the highest degree you have received? Some college, no degree 04/24/2019 Comments No Sex and Gender Information Value Date Recorded Sex Assigned at Female 12/26/2018 8:37 PM MEDICATION CARE MANAGER Legal Sex Female 2:43 PM MEDICATION CARE MANAGER Gender Identity Female 12/26/2018 8:37 PM MEDICATION CARE MANAGER Sexual Orientation Choose not to disclose 2020 3:46 PM CDT documented as of this encounter Plan of Treatment Upcoming Encounters Date Type Department Care Team (Latest Contact Info) Description 05/29/2025 11:59 PM CDT Anesthesia Event Division of Gastroenterology in [place], [place] [address] [place] [address] Bri Valenzuela M.D. [address] [place] [phone] 06/01/2025 1:15 PM CDT Appointment Division of Gastroenterology in [place], [place] [address] [place] [phone] Lito Pollock P.A.-C. [address] [place] [address] [phone] Jeaneth Núñez M.B.BKatalinaS., M.S. [address] [place] [phone] 06/03/2025 7:30 AM CDT Appointment Department of Laboratory Medicine in [address] [phone] Lito Pollock P.A.-C. [address] [place] [phone] 06/03/2025 10:00 AM CDT Telemedicine [facility] in [place], [place] [address] [place] [phone] Tessa Jesus APRN, C.N.P., D.N.P. [address] [place] [phone] 06/10/2025 1:20 PM CDT Nurse Only Section of Infectious Diseases in [place], [place] [address] [place] [address] [phone] Jessica Rousseau M.B.B.S. [address] [place] [phone] 06/15/2025 9:45 AM CDT Appointment Outpatient Procedure Center in [place], [place] [address] [place] [phone] Jessica Rousseau M.B.B.S. [address] [place] [phone] 06/24/2025 12:30 PM CDT Clinical Communication Virtual Review in [place], [place] [address] [place] [phone] 06/25/2025 8:10 AM CDT Lab Department of Laboratory Medicine and Pathology, [facility], in [place], [place] [address] [place] [phone] Tessa Jesus APRN, C.N.P., D.N.P. [address] [place] [phone] 06/25/2025 9:00 AM CDT Office Visit [facility] in [place], [place] [address] [place] [phone] Tessa Jesus APRN, C.N.P., D.N.P. [address] [place] [phone] 06/25/2025 9:30 AM CDT Nurse Only [facility] in [place], [place] [address] [place] [phone] Tessa Jesus APRN, C.N.P., D.N.P. [address] [place] [phone] 06/25/2025 10:30 AM CDT Office Visit [facility] in [place], [place] [address] [place] [phone] Jessica Rousseau M.B.B.S. [address] [place] [phone] 06/26/2025 10:00 AM CDT Telemedicine Department of Palliative Care in [place], [place] [address] [place] [phone] Isabel Sellers M.D. [address] [place] [phone] Debbie Shay M.D. [address] [place] [phone] documented as of this encounter Visit Diagnoses Not on filedocumented in this encounter Additional Health Concerns Infection Onset Date Last Indicated Resolved Time Protective Environment 03/02/2023 03/02/2023 Assessment Noted Time PHQ-9 Depression Total Score: 2 12/10/19 25 2:46 PM MEDICATION CARE MANAGER documented as of this encounter Care Teams Manager Electrical Relationship Specialty Start Date End Date Renzo Andres M.D. [address] [place] [phone] PCP - General Family Medicine 04/25/23 documented as of this encounter
--- OUTSIDE RECORDS SUMMARY | 2025-05-31 15:53 | XMS_ITS | Encounter Summary ---
Author Organization [facility] Address [address] [place] [address] Care Team Providers Care Fish Worm Grower Name Role Phone Renzo Andres M.D. Primary Care Provider [phone] Encounter Details Date Type Department Care Team (Late st Contact Info) Description 07/04/2006 Historical Ophthalmology [facility]ST O[facility] Fercho Jeronimo M.D. Social History Tobacco Use Types Packs/Day Years Used Date Smoking Tobacco: Never Assessed Comments Unknown Sex and Gender Information Value Date Recorded Sex Assigned at Female 12/26/2018 8:37 PM MARINE DIESEL TECHNICIAN Legal Sex Female 2:43 PM MARINE DIESEL TECHNICIAN Gender Identity Female 12/26/2018 8:37 PM MARINE DIESEL TECHNICIAN Sexual Orientation Choose not to disclose 2020 3:46 PM CDT documented as of this encounter Progress Notes * Fercho Jeronimo M.D. - 07/04/2006 12:00 AM CDT Eye General CHIEF COMPLAINT right esotropia, right hypertropia, amblyopia right eye, myopia both eyes HISTORY OF PRESENT ILLNESS 16 year old female, follow up today for right esotropia, right hypertropia, amblyopia right eye, myopia both eyes. No eye complaints. 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 No diplopia. Would like to get contacts. 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 [address] [place] [phone] 06/01/2025 1:15 PM CDT Appointment Division of Gastroenterology in [place], [place] [address] [place] [phone] Lito Pollock P.A.-C. [address] [place] [phone] Jeaneth Núñez M.B.BKatalinaS., M.S. [address] [place] [phone] 06/03/2025 7:30 AM CDT Appointment Department of Laboratory Medicine in [place] [address] [place] [phone] Lito Pollock P.A.-C. [address] [place] [phone] 06/03/2025 10:00 AM CDT Telemedicine [facility] in [place], [place] [address] [place] [phone] Tessa Jesus APRN C.N.P., D.N.P. [address] [place] [phone] 06/10/2025 1:20 PM CDT Nurse Only Section of Infectious Diseases in [place], [place] [address] [place] [phone] Jessica Rousseau M.B.B.S. [address] [place] [phone] 06/15/2025 9:45 AM CDT Appointment Outpatient Procedure Center in [place], [place] [address] [place] [phone] Jessica Rousseau M.B.B.S. [address] [place] [phone] 06/24/2025 12:30 PM CDT Clinical Communication Virtual Review in [place], [place] 200 [place] [phone] 06/25/2025 8:10 AM CDT Lab Department of Laboratory Medicine and Pathology, [facility], in [place], [place] [address] [place] [phone] Tessa Jesus APRN, C.N.P., D.N.P. [address] [place] [phone] 06/25/2025 9:00 AM CDT [facility] in [place], [place] [address] [place] [phone] Tessa Jesus APRN, C.N.P., D.N.P. [address] [place] [phone] 06/25/2025 9:30 AM CDT Nurse Only [facility] in [place], [place] [address] [place] [phone] Tessa Jesus APRN, C.N.P., D.N.P. [address] [place] [phone] 06/25/2025 10:30 AM CDT Office Visit [facility] in [place], [place] [address] [place] [phone] Jessica Rousseau M.B.BKatalinaSKatalina [address] [place] [address] [phone] 06/26/2025 10:00 AM CDT Telemedicine Department of Palliative Care in [place], [place] [address] [place] [phone] Isabel Sellers M.D. [address] [place] [phone] Debbie Shay M.D. [address] [place] [address] [phone] documented as of this encounter Visit Diagnoses Not on filedocumented in this encounter Additional Health Concerns Infection Onset Date Last Indicated Resolved Time COVID19 Pending 04/20/2020 04/20/2020 04/23/2020 2 :28 AM CDT COVID19 Pending 07/07/2020 07/07/2020 07/07/2020 7 :12 PM CDT COVID19 Pending 03/15/2021 03/15/2021 03/16/2021 1 1:39 AM CDT COVID19 01/07/2023 01/07/2023 01/27/2023 5:15 AM MARINE DIESEL TECHNICIAN Protective Environment 03/02/2023 03/02/2023 COVID19 Pending 12/04/2024 12/04/2024 12/04/2024 1 0:20 AM MARINE DIESEL TECHNICIAN documented as of this encounter Care Teams Fish Worm Grower Relationship Specialty Start Date End Date Renzo Andres M.D. [address] [place] [address] [place] [phone] PCP - General Family Medicine 04/25/23 documented as of this encounter
--- OUTSIDE RECORDS SUMMARY | 2025-05-31 15:53 | XMS_ITS | Encounter Summary ---
Author Organization [facility] Address [address] [place] [address] Care Team Providers Care Income Tax Manager Name Role Phone Renzo Andres M.D. Primary Care Provider [phone] Encounter Details Date Type Department Care Team (Late st Contact Info) Description 12/24/2002 Historical Ophthalmology RST OPH Fercho Jeronimo M.D. Social History Tobacco Use Types Packs/Day Years Used Date Smoking Tobacco: Never Assessed Comments Unknown Sex and Gender Information Value Date Recorded Sex Assigned at Female 12/26/2018 8:37 PM BOOT LACE CUTTER MACHINE Legal Sex Female 2:43 PM BOOT LACE CUTTER MACHINE Gender Identity Female 12/26/2018 8:37 PM BOOT LACE CUTTER MACHINE Sexual Orientation Choose not to disclose 2020 3:46 PM CDT documented as of this encounter Progress Notes * Fercho Jeronimo M.D. - 12/24/2002 12:00 AM CST Eye General CHIEF COMPLAINT yearly recheck HISTORY OF PRESENT ILLNESS This is a 12 year old female here for a yearly check up and feels the glasses are scratched and notseeing as well. There has been no crossing noticed. IMPRESSION / REPORT / PLAN #1 Amblyopia, Esotropia, Vertical tropia. Plan: . #2 Refractive error (myopia). Plan: spectacle prescription (Refraction 1) given. CDM Reports - EYEGEN Id: [id number] Status: Fnl documented in this encounter Plan of Treatment Upcoming Encounters Date Type Department Care Team (Latest Contact Info) Description 05/29/2025 11:59 PM CDT Anesthesia Event Division of Gastroenterology in [place], [place] [address] [place] [phone] Bri Valenzuela M.D. [address] [place] [phone] 06/01/2025 1:15 PM CDT Appointment Division of Gastroenterology in [place], [place] [address] [place] [phone] Lito Pollock P.A.-C. [address] [place] [phone] Jeaneth Núñez M.B.B.S., M.S. [address] [place] [phone] 06/03/2025 7:30 AM CDT Appointment Department of Laboratory Medicine in [address] [phone] Lito Pollock P.A.-C. [address] [place] [phone] 06/03/2025 10:00 AM CDT Telemedicine [facility] in [place], [place] [address] [place] [phone] Tessa Jesus, KARON, C.N.P., D.N.P. [address] [place] [phone] 06/10/2025 1:20 PM CDT Nurse Only Section of Infectious Diseases in [place], [place] [address] [place] [phone] Jessica Rousseau M.B.B.S. [address] [place] [phone] 06/15/2025 9:45 AM CDT Appointment Outpatient Procedure Center in [place], [place] [address] [place] [phone] Jessica Rousseau M.B.B.S. [address] [place] [phone] 06/24/2025 12:30 PM CDT Clinical Communication Virtual Review in [place], [place] 200 [place] [phone] 06/25/2025 8:10 AM CDT Lab Department of Laboratory Medicine and Pathology, [facility], in [place], [place] [address] [place] [phone] Tessa Jesus APRN, C.N.P., D.N.P. [address] [place] [phone] 06/25/2025 9:00 AM CDT [facility] in [place], [place] [address] [place] [phone] Tessa Jesus APRN, C.N.P., D.N.P. [address] [place] [phone] 06/25/2025 9:30 AM CDT Nurse Only [facility] for Transplantation and Clinical Regeneration in [place], [place] [address] [place] [phone] Tessa Jesus APRN, C.N.P., D.N.P. [address] [place] [phone] 06/25/2025 10:30 AM CDT [facility] in [place], [place] [address] [place] [address] Jessica Rousseau M.B.B.S. [address] [place] [phone] 06/26/2025 10:00 AM CDT Telemedicine Department of Palliative Care in [place], [place] [address] [place] [address] Isabel Sellers M.D. [address] [place] [phone] Debbie Shay M.D. [address] [place] [phone] documented as of this encounter Visit Diagnoses Not on filedocumented in this encounter Additional Health Concerns Infection Onset Date Last Indicated Resolved Time COVID19 Pending 04/20/2020 04/20/2020 04/23/2020 2 :28 AM CDT COVID19 Pending 07/07/2020 07/07/2020 07/07/2020 7 :12 PM CDT COVID19 Pending 03/15/2021 03/15/2021 03/16/2021 1 1:39 AM CDT COVID19 01/07/2023 01/07/2023 01/27/2023 5:15 AM BOOT LACE CUTTER MACHINE Protective Environment 03/02/2023 03/02/2023 COVID19 Pending 12/04/2024 12/04/2024 12/04/2024 1 0:20 AM BOOT LACE CUTTER MACHINE documented as of this encounter Care Teams Income Tax Manager Relationship Specialty Start Date End Date Renzo Andres M.D. [address] [place] [phone] PCP - General Family Medicine 04/25/23 documented as of this encounter
--- OUTSIDE RECORDS SUMMARY | 2025-05-31 15:53 | XMS_ITS | Encounter Summary ---
Author Organization [facility] Address [address] [place] [address] Care Team Providers Care Courtroom Deputy Name Role Phone Renzo Andres M.D. Primary Care Provider Encounter Details Date Type Department Care Team (Late st Contact Info) Description 05/06/2009 Historical Ophthalmology RST OPH Reginald Peter O.D. [address] [place] [phone] Social History Tobacco Use Types Packs/Day Years Used Date Smoking Tobacco: Never Assessed Comments Unknown Sex and Gender Information Value Date Recorded Sex Assigned at Female 12/26/2018 8:37 PM TIRE REGROOVING MACHINE OPERATOR Legal Sex Female 2:43 PM TIRE REGROOVING MACHINE OPERATOR Gender Identity Female 12/26/2018 8:37 PM TIRE REGROOVING MACHINE OPERATOR Sexual Orientation Choose not to disclose 2020 3:46 PM CDT documented as of this encounter Progress Notes * Reginald Peter O.D. - 05/06/2009 12:37 PM CDT Eye General CHIEF COMPLAINT General exam-right eye esotropia, hypertropia, amblyopia HISTORY OF PRESENT ILLNESS Patient wonders if surgery would help to get better vision in the right eye. Patient reports no change in vision. Patient reports no pain, flashes, floaters or diplopia. IMPRESSION / REPORT / PLAN #1 Right eye esotropia and hypotropia She would like a surgical consultation. Obtain Pediatric Ophthalmology/Strabismus Service opinion or advice and possible management or treatment options. #2 Refractive error (hyperopic astigmatism). Plan: spectacle prescription (Refraction 1) given. 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 CDM Reports - EYEGEN Id: [id number] Status: Fnl documented in this encounter Plan of Treatment Upcoming Encounters Date Type Department Care Team (Latest Contact Info) Description 05/29/2025 11:59 PM CDT Anesthesia Event Division of Gastroenterology in [place], [place] [address] [place] [phone] Bri Valenzuela M.D. [address] [place] [phone] 06/01/2025 1:15 PM CDT Appointment Division of Gastroenterology in [place], [place] [address] [place] [phone] Lito Pollock P.A.-C. [address] [place] [phone] Jeaneth Núñez M.B.B.S., M.S. [address] [place] [phone] 06/03/2025 7:30 AM CDT Appointment Department of Laboratory Medicine in [address] [phone] Lito Pollock P.A.-C. [address] [place] [phone] 06/03/2025 10:00 AM CDT [facility]medicine [facility] in [place], [place] [address] [place] [phone] Tessa Jesus APRN, C.N.P., D.N.P. [address] [place] [phone] 06/10/2025 1:20 PM CDT Nurse Only Section of Infectious Diseases in [place], [place] [address] [place] [phone] Jessica Rousseau M.B.B.S. [address] [place] [phone] 06/15/2025 9:45 AM CDT Appointment Outpatient Procedure Center in [place], [place] [address] [place] [phone] Jessica Rousseau M.B.B.S. [address] [place] [phone] 06/24/2025 12:30 PM CDT Clinical Communication Virtual Review in [place], [place] 200 [place] [address] 06/25/2025 8:10 AM CDT Lab Department of Laboratory Medicine and Pathology, [facility], in [place], [place] [address] [place] [phone] Tessa Jesus APRN, C.N.P., D.N.P. [address] [place] [phone] 06/25/2025 9:00 AM CDT Office [facility] in [place], [place] [address] [place] [phone] Tessa Jesus APRN, C.N.P., D.N.P. [address] [place] [phone] 06/25/2025 9:30 AM CDT Nurse Only [facility] Transplantation and Clinical Regeneration in [place], [place] [address] [place] [phone] Tessa Jesus APRN, C.N.P., D.N.P. [address] [place] [phone] 06/25/2025 10:30 AM CDT Office Visit [facility] Transplantation and Clinical Regeneration in [place], [place] [address] [place] [phone] Jessica Rousseau M.B.BKatalinaS. [address] [place] [phone] 06/26/2025 10:00 AM CDT Telemedicine Department of Palliative Care in [place], [place] [address] [place] [phone] Isabel Sellers M.D. [address] [place] [phone] Debbie Shay M.D. [address] [place] [phone] documented as of this encounter Visit Diagnoses Not on filedocumented in this encounter Additional Health Concerns Infection Onset Date Last Indicated Resolved Time COVID19 Pending 04/20/2020 04/20/2020 04/23/2020 2 :28 AM CDT COVID19 Pending 07/07/2020 07/07/2020 07/07/2020 7 :12 PM CDT COVID19 Pending 03/15/2021 03/15/2021 03/16/2021 1 1:39 AM CDT COVID19 01/07/2023 01/07/2023 01/27/2023 5:15 AM TIRE REGROOVING MACHINE OPERATOR Protective Environment 03/02/2023 03/02/2023 COVID19 Pending 12/04/2024 12/04/2024 12/04/2024 1 0:20 AM TIRE REGROOVING MACHINE OPERATOR documented as of this encounter Care Teams Courtroom Deputy Relationship Specialty Start Date End Date Renzo Andres M.D. NPAmanda: [phone] [address] [place] [address] SUNNY Hansen [phone] PCP - General Family Medicine 04/25/23 documented as of this encounter
--- OUTSIDE RECORDS SUMMARY | 2025-05-31 15:53 | XMS_ITS | Encounter Summary ---
Author Organization [facility] Address [address] [place] [address] Care Team Providers Care Printed Circuit Boards Inspector Name Role Phone Renzo Andres M.D. Primary Care Provider [phone] Reason for Visit * Reason Onset Date Comments Nurse Assessment 04/01/2025 Encounter Details Date Type Department Care Team (Latest Contact Info) Description 04/01/2025 Clinical Communication [facility] in [place], [place] [address] [place] [address] Lucy Stout, RKatalinaN., BMT-CN, O.C.N. Nurse Assessment Social History Tobacco Use Types Packs/Day Years Used Date Smoking Tobacco: Never Smokeless Tobacco: Never Alcohol Use Standard Drinks/Week Comments Yes 0 (1 standard drink = 0.6 oz pur e alcohol) social [facility] Utilities Answer Date Recorded In [...] your living situation today? I have a [facility] place to live 12/19/2024 Education Answer Date Recorded What is the highest level of school you have completed or the highest degree you have received? Some college, no degree 04/24/2019 Comments No Sex and Gender Information Value Date Recorded Sex Assigned at Female 12/26/2018 8:37 PM SADDLE MECHANIC Legal Sex Female 2:43 PM SADDLE MECHANIC Gender Identity Female 12/26/2018 8:37 PM SADDLE MECHANIC Sexual Orientation Choose not to disclose 2020 3:46 PM CDT documented as of this encounter Miscellaneous Notes * Telephone Encounter - Lucy Stout, Sanjana, KHANH-CN, O.C.N. - 04/01/2025 1:49 PM CDT Patient reporting 7/10 shooting leg pain. Patient wondering if she can take CBD now that she is down to twice weekly tacrolimus. Advised patient that we will reach out to MD. Patient wondering if shecan take an additional dose of hydromorphone 0.5 mg to help with pain. Patient would like portal message with recommendations. documented in this encounter Plan of Treatment Upcoming Encounters Date Type Department Care Team (Latest Contact Info) Description 05/29/2025 11:59 PM CDT Anesthesia Event Division of Gastroenterology in [place], [place] [address] [place] [phone] Bri Valenzuela M.D. [address] [place] [phone] 06/01/2025 1:15 PM CDT Appointment Division of Gastroenterology in [place], [place] [address] [place] [phone] Lito Pollock P.A.-C. [address] [place] [phone] Jeaneth Núñez M.B.B.S., M.S. [address] [place] [phone] 06/03/2025 7:30 AM CDT Appointment Department of Laboratory Medicine in [address] [phone] Lito Pollock P.A.-C. [address] [place] [phone] 06/03/2025 10:00 AM CDT Telemedicine [facility] in [place], [place] [address] [place] [phone] Tessa Jesus, KARON, C.N.P., D.N.P. [address] [place] [phone] 06/10/2025 1:20 PM CDT Nurse Only Section of Infectious Diseases in [place], [place] [address] [place] [phone] Jessica Rousseau M.B.B.S. [address] [place] [phone] 06/15/2025 9:45 AM CDT Appointment Outpatient Procedure Center in [place], [place] [address] [place] [address] [phone] Jessica Rousseau M.B.B.S. [address] [place] [phone] 06/24/2025 12:30 PM CDT Clinical Communication Virtual Review in [place], [place] 200 [place] [phone] 06/25/2025 8:10 AM CDT Lab Department of Laboratory Medicine and Pathology, [facility], in [place], [place] [address] [place] [phone] Tessa Jesus APRN, C.N.P., D.N.P. [address] [place] [phone] 06/25/2025 9:00 AM CDT Office Visit Pedro Lanza laura [facility] for Transplantation and Clinical Regeneration in [place], [place] [address] [place] [phone] Tessa Jesus APRN, C.N.P., D.N.P. [address] [place] [phone] 06/25/2025 9:30 AM CDT Nurse Only Pedro Nazario [facility] for Transplantation and Clinical Regeneration in [place], [place] [address] [place] [phone] Tessa Jesus APRN, C.N.P., D.N.P. [address] [place] [phone] 06/25/2025 10:30 AM CDT Office [facility] in [place], [place] [address] [place] [phone] Jessica Rousseau M.B.BKatalinaS. [address] [place] [phone] 06/26/2025 10:00 AM CDT Telemedicine Department of Palliative Care in [place], [place] [address] [place] [phone] Isabel Sellers M.D. [address] [place] [phone] Debbie Shay M.D. [address] [place] [phone] documented as of this encounter Visit Diagnoses Not on filedocumented in this encounter Additional Health Concerns Infection Onset Date Last Indicated Resolved Time Protective Environment 03/02/2023 03/02/2023 Assessment Noted Time PHQ-9 Depression Total Score: 2 12/10/19 25 2:46 PM SADDLE MECHANIC documented as of this encounter Care Teams Printed Circuit Boards Inspector Relationship Specialty Start Date End Date Renzo Andres M.D. [address] [place] [phone] PCP - General Family Medicine 04/25/23 documented as of this encounter
--- OUTSIDE RECORDS SUMMARY | 2025-05-31 15:53 | XMS_ITS | Encounter Summary ---
Author Organization [facility] Address [address] [place] [phone] Care Team Providers Care Gaming Cage Worker Name Role Phone Renzo Andres M.D. Primary Care Provider Encounter Details Date Type Department Care Team (Late st Contact Info) Description 04/08/2025 Orders Only Pedro Nazario [facility] for Transplantation and Clinical Regeneration in [place], [place] [address] [place] [phone] Becky Hernandez APRN, C.N.P., D.N.P. [address] [place] [phone] Bone Marrow Transplant Status (HCC) (Primary Dx); Transplant Stem Cell (HCC); Transplant Bone Marrow Allogeneic (HCC) Social History Tobacco Use Types Packs/Day Years Used Date Smoking Tobacco: Never Smokeless Tobacco: Never Alcohol Use Standard Drinks/Week Comments Yes 0 (1 standard drink = 0.6 oz pur e alcohol) social [facility] Utilities Answer Date Recorded In the past 12 months has e electric, gas, oil, or water [employer] threatened to shut off services in your [...] your living situation today? I have a [facility] place to live 12/19/2024 Education Answer Date Recorded What is the highest level of school you have completed or the highest degree you have received? Some college, no degree 04/24/2019 Comments No Sex and Gender Information Value Date Recorded Sex Assigned at Female 12/26/2018 8:37 PM FLOOR GRINDER Legal Sex Female 2:43 PM FLOOR GRINDER Gender Identity Female 12/26/2018 8:37 PM FLOOR GRINDER Sexual Orientation Choose not to disclose 2020 3:46 PM CDT documented as of this encounter Plan of Treatment Upcoming Encounters Date Type Department Care Team (Latest Contact Info) Description 05/29/2025 11:59 PM CDT Anesthesia Event Division of Gastroenterology in [place], [place] [address] [place] [phone] Bri Valenzuela M.D. [address] [place] [phone] 06/01/2025 1:15 PM CDT Appointment Division of Gastroenterology in [place], [place] [address] [place], [place] [phone] Lito Pollock P.A.-C. [address] [place] [phone] Jeaneth Núñez M.B.B.S., M.S. [address] [place] [phone] 06/03/2025 7:30 AM CDT Appointment Department of Laboratory Medicine in [address] [phone] Lito Pollock P.A.-C. [address] [place] [phone] 06/03/2025 10:00 AM CDT Telemedicine Pedro Aravind [facility] for Transplantation and Clinical Regeneration in [place], [place] [address] [place] [phone] Tessa Jesus APRN, C.N.P., D.N.P. [address] [place] [phone] 06/10/2025 1:20 PM CDT Nurse Only Section of Infectious Diseases in [place], [place] [address] [place] [phone] Jessica Rousseau M.B.B.S. [address] [place] [phone] 06/15/2025 9:45 AM CDT Appointment Outpatient Procedure Center in [place], [place] [address] [place] [phone] Jessica Rousseau M.B.B.S. [address] [place] [phone] 06/24/2025 12:30 PM CDT Clinical Communication Virtual Review in [place], [place] [address] [place] [phone] 06/25/2025 8:10 AM CDT Lab Department of Laboratory Medicine and Pathology, [facility], in [place], [place] [address] [place] [phone] Tessa Jesus APRN, C.N.P., D.N.P. [address] [place] [phone] 06/25/2025 9:00 AM CDT Office Visit [facility] for Transplantation and Clinical Regeneration in [place], [place] [address] [place] [phone] Tessa Jesus APRN, C.N.P., D.N.P. [address] [place] [phone] 06/25/2025 9:30 AM CDT Nurse Only [facility] for Transplantation and Clinical Regeneration in [place], [place] [address] [place] [phone] Tessa Jesus APRN, C.N.P., D.N.P. [address] [place] [phone] 06/25/2025 10:30 AM CDT Office Visit [facility] for Transplantation and Clinical Regeneration in [place], [place] [address] [place] [phone] Jessica Rousseau M.B.B.S. [address] [place] [phone] 06/26/2025 10:00 AM CDT Telemedicine Department of Palliative Care in [place], [place] [address] [place] [phone] Isabel Sellers M.D. [address] [place] [phone] Debbie Shay M.D. 200 [place] [phone] documented as of this encounter Visit Diagnoses Diagnosis Bone Marrow Transplant Status (HCC)- Primary Transplant Stem Cell (HCC) Transplant Bone Marrow Allogeneic (HCC) documented in this encounter Additional Health Concerns Infection Onset Date Last Indicated Resolved Time Protective Environment 03/02/2023 03/02/2023 Assessment Noted Time PHQ-9 Depression Total Score: 2 12/10/19 25 2:46 PM FLOOR GRINDER documented as of this encounter Care Teams Gaming Cage Worker Relationship Specialty Start Date End Date Renzo Andres M.D. [address] [place] [phone] PCP - General Family Medicine 04/25/23 documented as of this encounter
--- OUTSIDE RECORDS SUMMARY | 2025-05-31 15:53 | XMS_ITS | Encounter Summary ---
Author Organization [facility] Address [address] [place] [address] Care Team Providers Care Ms Sql Developer Name Role Phone Renzo Andres M.D. Primary Care Provider [phone] Encounter Details Date Type Department Care Team (Late st Contact Info) Description 10/25/2022 Orders Only RST CCM [address] [place] [phone] [facility], Provider, MD Screening Test Laboratory Social History Tobacco Use Types Packs/Day Years Used Date Smoking Tobacco: Never Smokeless Tobacco: Never Alcohol Use Standard Drinks/Week Comments No 0 (1 standard drink = 0.6 oz pur e alcohol) Humiliation, Afraid, Rape, and Kick questionnair e Answer Date Recorded Within the last year, have y ou been afraid of your partner or ex-partner? Patient declined 01/25/2022 Within the last year, have y ou been humiliated or emotionally abused in other ways by your partner or ex-partner? Patient declined 01/25/2022 Within the last year, have y ou been kicked, hit, slapped, or otherwise physically hurt by your partner or ex-partner? Patient declined 01/25/2022 Within the last year, have y ou been raped or forced to have any kind of sexual activity by your partner or ex-partner? Patient declined 01/25/2022 Hunger Vital Sign Answer Date Recorded Within the past 12 months, y ou worried that your food would run out before you got the money to buy more. Patient declined Within the past 12 months, t he food you bought just didn't last and you didn't have money to get more. Patient declined 07/2022 PRAPARE - Transportation Answer Date Re corded In the past 12 months, has l ack of transportation kept you from medical appointments or from getting medications? Patient declined 01/25/2022 In the past 12 months, has l ack of transportation kept you from meetings, work, or from getting things needed for daily living? Patient declined 01/25/2022 Housing Stability Vital Sign Answer Benny e Recorded In the last 12 months, was t here a time when you were not able to pay the mortgage or rent on time? Patient refused 01/26/20 22 In the last 12 months, how many places have you lived? 1 01/25/2022 In the last 12 months, was t here a time when you did not have a steady place to sleep or slept in a chcf (including now)? Patient refused 01/25/2022 Depression Answer Date Recor ded PHQ-9 Total Score (max 27) 11 08/01 Education Answer Date Recorded What is the highest level of school you have completed or the highest degree you have received? Some college, no degree 04/24/2019 Comments No Sex and Gender Information Value Date Recorded Sex Assigned at Female 12/26/2018 8:37 PM VOCATIONAL TRAINING TEACHER Legal Sex Female 2:43 PM VOCATIONAL TRAINING TEACHER Gender Identity Female 12/26/2018 8:37 PM VOCATIONAL TRAINING TEACHER Sexual Orientation Choose not to disclose 2020 3:46 PM CDT documented as of this encounter Plan of Treatment Upcoming Encounters Date Type Department Care Team (Latest Contact Info) Description 05/29/2025 11:59 PM CDT Anesthesia Event Division of Gastroenterology in [place], [place] [address] [place] [phone] Bri Valenzuela M.D. [address] [place] [phone] 06/01/2025 1:15 PM CDT Appointment Division of Gastroenterology in [place], [place] [address] [place] [phone] Lito Pollock P.A.-C. [address] [place] [phone] Jeaneth Núñez M.B.B.SKatalina, M.S. [address] [place] [phone] 06/03/2025 7:30 AM CDT Appointment Department of Laboratory Medicine in [place], [place] [address] [place] [phone] Lito Pollock P.A.-C. [address] [place] [phone] 06/03/2025 10:00 AM CDT Telemedicine [facility] Trans[facility] Clinical Regeneration in [place], [place] [address] [place] [phone] Tessa Jesus, KARON, C.N.P., D.N.P. [address] [place] [phone] 06/10/2025 1:20 PM CDT Nurse Only Section of Infectious Diseases in [place], [place] [address] [place] [phone] Jessica Rousseau M.B.B.S. [address] [place] [phone] 06/15/2025 9:45 AM CDT Appointment Outpatient Procedure Center in [place], [place] [address] [place] [phone] Jessica Rousseau M.B.B.S. [address] [place] [phone] 06/24/2025 12:30 PM CDT Clinical Communication Virtual Review in [place], [place] 200 [place] [phone] 06/25/2025 8:10 AM CDT Lab Department of Laboratory Medicine and Pathology, [facility], in [place], [place] [address] [place] [phone] Tessa Jesus APRN, C.N.P., D.N.P. [address] [place] [phone] 06/25/2025 9:00 AM CDT Office [facility] in [place], [place] [address] [place] [phone] Tessa Jesus APRN, C.N.P., D.N.P. [address] [place] [phone] 06/25/2025 9:30 AM CDT Nurse Only [facility] for Transplantation and Clinical Regeneration in [place], [place] [address] [place] [phone] Tessa Jesus APRN, C.N.P., D.N.P. [address] [place] [phone] 06/25/2025 10:30 AM CDT Office Visit [facility] in [place], [place] [address] [place] [phone] Jessica Rousseau M.B.B.S. [address] [place] [phone] 06/26/2025 10:00 AM CDT Telemedicine Department of Palliative Care in [place], [place] [address] [place] [phone] Isabel Sellers M.D. [address] [place] [phone] Debbie Shay M.D. 200 [place] [phone] documented as of this encounter Visit Diagnoses Diagnosis Screening Test Laboratory documented in this encounter Additional Health Concerns Infection Onset Date Last Indicated Resolved Time COVID19 01/07/2023 01/07/2023 01/27/2023 5:15 AM VOCATIONAL TRAINING TEACHER Protective Environment 03/02/2023 03/02/2023 COVID19 Pending 12/04/2024 12/04/2024 12/04/2024 1 0:20 AM VOCATIONAL TRAINING TEACHER Assessment Noted Time PHQ-9 Depression Total Score: 11 08/01/ 022 10:21 AM CDT documented as of this encounter Care Teams Ms Sql Developer Relationship Specialty Start Date End Date Renzo Andres M.D. [address] [place] [phone] PCP - General Family Medicine 04/25/23 documented as of this encounter
--- OUTSIDE RECORDS SUMMARY | 2025-05-31 15:53 | XMS_ITS | Encounter Summary ---
Author Organization [facility] Address [address] [place] [address] Care Team Providers Care Binding Nicker Name Role Phone Renzo Andres M.D. Primary Care Provider [phone] Encounter Details Date Type Department Care Team (Late st Contact Info) Description 02/16/2005 Historical Ophthalmology RST OPH Fercho Jeronimo M.D. Social History Tobacco Use Types Packs/Day Years Used Date Smoking Tobacco: Never Assessed Comments Unknown Sex and Gender Information Value Date Recorded Sex Assigned at Female 12/26/2018 8:37 PM VISUAL DISPLAY MANAGER Legal Sex Female 2:43 PM VISUAL DISPLAY MANAGER Gender Identity Female 12/26/2018 8:37 PM VISUAL DISPLAY MANAGER Sexual Orientation Choose not to disclose 2020 3:46 PM CDT documented as of this encounter Progress Notes * Fercho Jeronimo M.D. - 02/16/2005 12:00 AM CST Eye General CHIEF COMPLAINT follow up on amblyopia, esotropia and vertical tropia HISTORY OF PRESENT ILLNESS This is a 15 year old female here for a follow up on amblyopia, esotropia and vertical tropia. It has been 2 years since the last visit. Very slight vision changes noticed and feels a stronger prescription may be needed. IMPRESSION / REPORT / PLAN #1 right esotropia #2 right hypertropia #3 amblyopia right eye #4 myopia both eyes Rx= copy ref #1, recheck prn DIAGNOSIS #1 right esotropia #2 right hypertropia #3 amblyopia right eye #4 myopia both eyes CDM Reports - EYEGEN Id: [id number] Status: Fnl documented in this encounter Plan of Treatment Upcoming Encounters Date Type Department Care Team (Latest Contact Info) Description 05/29/2025 11:59 PM CDT Anesthesia Event Division of Gastroenterology in [place], [place] [address] [place] [phone] Bri Valenzuela M.D. [address] [place] [phone] 06/01/2025 1:15 PM CDT Appointment Division of Gastroenterology in [place], [place] [address] [place] [phone] Lito Pollock P.A.-C. [address] [place] [address] [phone] Jeaneth Núñez M.B.B.S., M.S. [address] [place] [phone] 06/03/2025 7:30 AM CDT Appointment Department of Laboratory Medicine in [address] [phone] Lito Pollock P.A.-C. [address] [place] [phone] 06/03/2025 10:00 AM CDT Telemedicine [facility] in [place], [place] [address] [place] [phone] Tessa Jesus, KARON, C.N.P., D.N.P. [address] [place] [phone] 06/10/2025 1:20 PM CDT Nurse Only Section of Infectious Diseases in [place], [place] [address] [place] [phone] Jessica Rousseau M.B.B.S. [address] [place] [address] [phone] 06/15/2025 9:45 AM CDT Appointment Outpatient Procedure Center in [place], [place] [address] [place] [phone] Jessica Rousseau M.B.B.S. [address] [place] [phone] 06/24/2025 12:30 PM CDT Clinical Communication Virtual Review in [place], [place] 200 [place] [phone] 06/25/2025 8:10 AM CDT Lab Department of Laboratory Medicine and Pathology, [facility], in [place], [place] [address] [place] [phone] Tessa Jesus APRN, C.N.P., D.N.P. [address] [place] [phone] 06/25/2025 9:00 AM CDT Office [facility] in [place], [place] [address] [place] [phone] Tessa Jesus APRN, C.N.P., D.N.P. [address] [place] [phone] 06/25/2025 9:30 AM CDT Nurse Only [facility] in [place], [place] [address] [place] [phone] Tessa Jesus APRN, C.N.P., D.N.P. [address] [place] [phone] 06/25/2025 10:30 AM CDT Office Visit [facility] in [place], [place] [address] [place] [phone] Jessica Rousseau M.B.B.S. [address] [place] [phone] 06/26/2025 10:00 AM CDT Telemedicine Department of Palliative Care in [place], [place] [address] [place] [phone] Isabel Sellers M.D. [address] [place] [phone] Debbie Shay M.D. [address] [place] [phone] documented as of this encounter Visit Diagnoses Not on filedocumented in this encounter Additional Health Concerns Infection Onset Date Last Indicated Resolved Time COVID19 Pending 04/20/2020 04/20/2020 04/23/2020 2 :28 AM CDT COVID19 Pending 07/07/2020 07/07/2020 07/07/2020 7 :12 PM CDT COVID19 Pending 03/15/2021 03/15/2021 03/16/2021 1 1:39 AM CDT COVID19 01/07/2023 01/07/2023 01/27/2023 5:15 AM VISUAL DISPLAY MANAGER Protective Environment 03/02/2023 03/02/2023 COVID19 Pending 12/04/2024 12/04/2024 12/04/2024 1 0:20 AM VISUAL DISPLAY MANAGER documented as of this encounter Care Teams Binding Nicker Relationship Specialty Start Date End Date Renzo Andres M.D. [address] [place] [address] SUNNY Chapman [phone] PCP - General Family Medicine 04/25/23 documented as of this encounter
--- OUTSIDE RECORDS SUMMARY | 2025-05-31 15:53 | XMS_ITS | Encounter Summary ---
Author Organization [facility] Address [address] [place] [address] Care Team Providers Care Multi Care Technician Name Role Phone Renzo Andres M.D. Primary Care Provider Reason for Visit * Reason Onset Date Comments Phone Contact 04/01/2025 Encounter Details Date Type Department Care Team (Latest Contact Info) Description 04/01/2025 Clinical Communication [facility] Clinical Regeneration in [place], [place] [address] [place] [phone] Jessica Rousseau M.B.B.S. [address] [place] [phone] Phone Contact Social History Tobacco Use Types Packs/Day Years [...] your living situation today? I have a [facility] place to live 12/19/2024 Education Answer Date Recorded What is the highest level of school you have completed or the highest degree you have received? Some college, no degree 04/24/2019 Comments No Sex and Gender Information Value Date Recorded Sex Assigned at Female 12/26/2018 8:37 PM LEGAL RECORDS MANAGER Legal Sex Female 2:43 PM LEGAL RECORDS MANAGER Gender Identity Female 12/26/2018 8:37 PM LEGAL RECORDS MANAGER Sexual Orientation Choose not to disclose 2020 3:46 PM CDT documented as of this encounter Plan of Treatment Upcoming Encounters Date Type Department Care Team (Latest Contact Info) Description 05/29/2025 11:59 PM CDT Anesthesia Event Division of Gastroenterology in [place], [place] [address] [place] [phone] Bri Valenzuela M.D. [address] [place] [phone] 06/01/2025 1:15 PM CDT Appointment Division of Gastroenterology in [place], [place] [address] [place] [phone] Lito Pollock P.A.-C. [address] [place] [phone] Jeaneth Núñez M.B.BKatalinaS., M.S. [address] [place] [phone] 06/03/2025 7:30 AM CDT Appointment Department of Laboratory Medicine in [place] [address] [place] [phone] Lito Pollock P.A.-C. [address] [place] [phone] 06/03/2025 10:00 AM CDT Telemedicine Pedro Aravind [facility] for Transplantation and Clinical Regeneration in [place], [place] [address] [place] [phone] Tessa Jesus, KARON, C.N.P., D.N.P. [address] [place] [phone] 06/10/2025 1:20 PM CDT Nurse Only Section of Infectious Diseases in [place], [place] [address] [place] [phone] Jessica Rousseau M.B.B.S. [address] [place] [phone] 06/15/2025 9:45 AM CDT Appointment Outpatient Procedure Center in [place], [place] [address] [place] [phone] Jessica Rousseau M.B.B.S. [address] [place] [phone] 06/24/2025 12:30 PM CDT Clinical Communication Virtual Review in [place], [place] 200 [place] [phone] 06/25/2025 8:10 AM CDT Lab Department of Laboratory Medicine and Pathology, [facility], in [place], [place] [address] [place] [phone] Tessa Jesus APRN, C.N.P., D.N.P. [address] [place] [phone] 06/25/2025 9:00 AM CDT Office [facility] in [place], [place] [address] [place] [phone] Tessa Jesus APRN, C.N.P., D.N.P. [address] [place] [phone] 06/25/2025 9:30 AM CDT Nurse Only [facility] for Transplantation and Clinical Regeneration in [place], [place] [address] [place] [phone] Tessa Jesus APRN, C.N.P., D.N.P. [address] [place] [phone] 06/25/2025 10:30 AM CDT Office Visit [facility] for Transplantation and Clinical Regeneration in [place], [place] [address] [place] [phone] Jessica Rousseau M.B.B.S. [address] [place] [phone] 06/26/2025 10:00 AM CDT Telemedicine Department of Palliative Care in [place], [place] [address] [place] [phone] Isabel Sellers M.D. [address] [place] [phone] Debbie Shay M.D. 200 [place] [phone] documented as of this encounter Visit Diagnoses Not on filedocumented in this encounter Additional Health Concerns Infection Onset Date Last Indicated Resolved Time Protective Environment 03/02/2023 03/02/2023 Assessment Noted Time PHQ-9 Depression Total Score: 2 12/10/19 25 2:46 PM LEGAL RECORDS MANAGER documented as of this encounter Care Teams Multi Care Technician Relationship Specialty Start Date End Date Renzo Andres M.D. [address] [place] [phone] PCP - General Family Medicine 04/25/23 documented as of this encounter
[2025-05-31 15:54] LABS: Chloride* 102 mmol/L (96-114); Potassium* 3.9 mmol/L (3.6-5.1); Sodium* 136 mmol/L (135-149)
--- OUTSIDE RECORDS SUMMARY | 2025-05-31 15:54 | XMS_ITS | Encounter Summary ---
Author Organization [facility] Address [address] [place] [address] Care Team Providers Care Vapor Coater Name Role Phone Renzo Andres M.D. Primary Care Provider Encounter Details Date Type Department Care Team (Late st Contact Info) Description 05/27/2025 Orders Only Department of Palliative Care in [place], [place] [address] [place] [phone] Felicia Watt, KARON, C.N.P., M.S.N. [address] [place] [phone] Social History Tobacco Use Types Packs/Day Years [...] have a [facility] place to live 05/28/2025 Education Answer Date Recorded What is the highest level of school you have completed or the highest degree you have received? Some college, no degree 04/24/2019 Comments No Sex and Gender Information Value Date Recorded Sex Assigned at Female 12/26/2018 8:37 PM COMMUNITY HEALTH COORDINATOR Legal Sex Female 2:43 PM COMMUNITY HEALTH COORDINATOR Gender Identity Female 12/26/2018 8:37 PM COMMUNITY HEALTH COORDINATOR Sexual Orientation Choose not to disclose 2020 3:46 PM CDT documented as of this encounter Plan of Treatment Upcoming Encounters Date Type Department Care Team (Latest Contact Info) Description 05/29/2025 11:59 PM CDT Anesthesia Event Division of Gastroenterology in [place], [place] 200 [place] [phone] Bri Valenzuela M.D. 200 [place] [phone] 06/01/2025 1:15 PM CDT Appointment Division of Gastroenterology in [place], [place] [address] [place] [phone] Lito Pollock P.A.-C. [address] [place] [phone] Jeaneth Núñez M.B.B.S., M.S. [address] [place] [phone] 06/03/2025 7:30 AM CDT Appointment Department of Laboratory Medicine in [place] [address] [place] [phone] Lito Pollock P.A.-C. [address] [place] [phone] 06/03/2025 10:00 AM CDT Telemedicine Pedro Aravind sanchez [facility] Center for Transplantation and Clinical Regeneration in [place], [place] [address] [place] [phone] Tessa Jesus, KARON, C.N.P., D.N.P. [address] [place] [phone] 06/10/2025 1:20 PM CDT Nurse Only Section of Infectious Diseases in [place], [place] [address] [place] [phone] Jessica Rousseau M.B.B.S. [address] [place] [phone] 06/15/2025 9:45 AM CDT Appointment Outpatient Procedure Center in [place], [place] [address] [place] [phone] Jessica Rousseau M.B.B.S. [address] [place] [phone] 06/24/2025 12:30 PM CDT Clinical Communication Virtual Review in [place], [place] 200 [place] [phone] 06/25/2025 8:10 AM CDT Lab Department of Laboratory Medicine and Pathology, [facility], in [place], [place] [address] [place] [phone] Tessa Jesus APRN, C.N.P., D.N.P. [address] [place] [phone] 06/25/2025 9:00 AM CDT Office [facility] in [place], [place] [address] [place] [phone] Tessa Jesus APRN, Satnam.N.P., D.N.P. [address] [place] [phone] 06/25/2025 9:30 AM CDT Nurse Only [facility] for Transplantation and Clinical Regeneration in [place], [place] [address] [place] [phone] Tessa Jesus APRN, C.N.P., D.N.P. [address] [place] [phone] 06/25/2025 10:30 AM CDT Office Visit [facility] for Transplantation and Clinical Regeneration in [place], [place] [address] [place] [phone] Jessica Rousseau M.B.BKatalinaS. [address] [place] [phone] 06/26/2025 10:00 AM CDT Telemedicine Department of Palliative Care in [place], [place] [address] [place] [address] [phone] Isabel Sellers M.D. [address] [place] [phone] Debbie Shay M.D. [address] [place] [phone] documented as of this encounter Visit Diagnoses Not on filedocumented in this encounter Additional Health Concerns Infection Onset Date Last Indicated Resolved Time Protective Environment 03/02/2023 03/02/2023 Assessment Noted Time PHQ-9 Depression Total Score: 2 12/10/19 25 2:46 PM COMMUNITY HEALTH COORDINATOR documented as of this encounter Care Teams Vapor Coater Relationship Specialty Start Date End Date Renzo Andres M.D. [address] [place] [phone] PCP - General Family Medicine 04/25/23 documented as of this encounter
--- OUTSIDE RECORDS SUMMARY | 2025-05-31 15:54 | XMS_ITS | Encounter Summary ---
Author Organization [facility] Address [address] [place] [address] Care Team Providers Care Fingerprinter Name Role Phone Renzo Andres M.D. Primary Care Provider Encounter Details Date Type Department Care Team (Late st Contact Info) Description 05/28/2025 Orders Only [facility], [facility], Ninth Floor [address] [place] [phone] Giselle Jean RKatalinaNKatalina Transplant Stem Cell (HCC) (Primary Dx) Social History Tobacco Use Types Packs/Day Years Used Date Smoking Tobacco: Never Smokeless Tobacco: Never Alcohol Use Standard Drinks/Week Comments Yes 0 (1 standard drink = 0.6 oz pur e alcohol) social [facility] Utilities Answer Date Recorded In the [...] Sex Assigned at Female 12/26/2018 8:37 PM CORPORATE STRATEGY ASSOCIATE Legal Sex Female 2:43 PM CORPORATE STRATEGY ASSOCIATE Gender Identity Female 12/26/2018 8:37 PM CORPORATE STRATEGY ASSOCIATE Sexual Orientation Choose not to disclose 2020 3:46 PM CDT documented as of this encounter Plan of Treatment Upcoming Encounters Date Type Department Care Team (Latest Contact Info) Description 05/29/2025 11:59 PM CDT Anesthesia Event Division of Gastroenterology in [place], [place] 200 [place] [phone] Bri Valenzuela M.D. [address] [place] [phone] 06/01/2025 1:15 PM CDT Appointment Division of Gastroenterology in [place], [place] [address] [place] [phone] Lito Pollock P.A.-C. [address] [place] [phone] Jeaneth Núñez M.B.BKatalinaS., M.S. [address] [place] [phone] 06/03/2025 7:30 AM CDT Appointment Department of Laboratory Medicine in [place] [address] [place] [address] Lito Pollock P.A.-C. [address] [place] [phone] 06/03/2025 10:00 AM CDT Telemedicine Pedro Aravind [facility] Clinical Regeneration in [place], [place] [address] [place] [phone] Tessa Jesus, KARON, C.N.P., D.N.P. [address] [place] [phone] 06/10/2025 1:20 PM CDT Nurse Only Section of Infectious Diseases in [place], [place] [address] [place] [phone] Jessica Rousseau M.B.B.S. [address] [place] [phone] 06/15/2025 9:45 AM CDT Appointment Outpatient Procedure Center in [place], [place] [address] [place] [phone] Jessica Rousseau M.B.B.S. [address] [place] [phone] 06/24/2025 12:30 PM CDT Clinical Communication Virtual Review in [place], [place] 200 [place] [phone] 06/25/2025 8:10 AM CDT Lab Department of Laboratory Medicine and Pathology, [facility], in [place], [place] [address] [place] [phone] Tessa Jesus APRN, C.N.P., D.N.P. [address] [place] [phone] 06/25/2025 9:00 AM CDT [facility] in [place], [place] [address] [place] [phone] Tessa Jesus APRN, C.N.P., D.N.P. [address] [place] [phone] 06/25/2025 9:30 AM CDT Nurse Only [facility] for Transplantation and Clinical Regeneration in [place], [place] [address] [place] [phone] Tessa Jesus APRN, C.N.P., D.N.P. [address] [place] [phone] 06/25/2025 10:30 AM CDT Office [facility] in [place], [place] [address] [place] [phone] Jessica Rousseau M.B.B.S. [address] [place] [phone] 06/26/2025 10:00 AM CDT Telemedicine Department of Palliative Care in [place], [place] [address] [place] [phone] Isabel Sellers M.D. [address] [place] [phone] Debbie Shay M.D. [address] [place] [phone] documented as of this encounter Visit Diagnoses Diagnosis Transplant Stem Cell (HCC)- Primary documented in this encounter Additional Health Concerns Infection Onset Date Last Indicated Resolved Time Protective Environment 03/02/2023 03/02/2023 Assessment Noted Time PHQ-9 Depression Total Score: 2 12/10/19 25 2:46 PM CORPORATE STRATEGY ASSOCIATE documented as of this encounter Care Teams Fingerprinter Relationship Specialty Start Date End Date Renzo Andres M.D. [address] [place] [phone] PCP - General Family Medicine 04/25/23 documented as of this encounter
--- OUTSIDE RECORDS SUMMARY | 2025-05-31 15:54 | XMS_ITS | Encounter Summary ---
Author Organization [facility] Address [address] [place] [address] Care Team Providers Care Regulatory Submissions Specialist Name Role Phone Renzo Andres M.D. Primary Care Provider Reason for Visit * Reason Onset Date Comments 06/25 appts 05/20/2025 Encounter Details Date Type Department Care Team (Latest Contact Info) Description 05/20/2025 Clinical Communication [facility] in [place], [place] [address] [place] [phone] Jessica Rousseau M.B.B.S. [address] [place] [phone] 06/25 appts Social History Tobacco Use Types Packs/Day Years Used Date Smoking Tobacco: Never Smokeless Tobacco: Never Alcohol Use Standard Drinks/Week Comments Yes 0 (1 standard drink = 0.6 oz pur e alcohol) social [facility] Utilities Answer Date Recorded In the [...] Sex Assigned at Female 12/26/2018 8:37 PM AUTOMOTIVE BUYER Legal Sex Female 2:43 PM AUTOMOTIVE BUYER Gender Identity Female 12/26/2018 8:37 PM AUTOMOTIVE BUYER Sexual Orientation Choose not to disclose 2020 3:46 PM CDT documented as of this encounter Plan of Treatment Upcoming Encounters Date Type Department Care Team (Latest Contact Info) Description 05/29/2025 11:59 PM CDT Anesthesia Event Division of Gastroenterology in [place], [place] [address] [place] [phone] Bri Valenzuela M.D. [address] [place] [phone] 06/01/2025 1:15 PM CDT Appointment Division of Gastroenterology in [place], [place] [address] [place] [phone] Lito Pollock P.A.-C. [address] [place] [phone] Jeaneth Núñez M.B.B.S., M.S. [address] [place] [phone] 06/03/2025 7:30 AM CDT Appointment Department of Laboratory Medicine in [address] [phone] Lito Pollock P.A.-C. [address] [place] [phone] 06/03/2025 10:00 AM CDT Telemedicine [facility] for Transplantation and Clinical Regeneration in [place], [place] [address] [place] [phone] Tessa Jesus, KARON, C.N.P., D.N.P. [address] [place] [phone] 06/10/2025 1:20 PM CDT Nurse Only Section of Infectious Diseases in [place], [place] [address] [place] [phone] Jessica Rousseau M.B.B.S. [address] [place] [phone] 06/15/2025 9:45 AM CDT Appointment Outpatient Procedure Center in [place], [place] [address] [place] [phone] Jessica Rousseau M.B.B.S. [address] [place] [phone] 06/24/2025 12:30 PM CDT Clinical Communication Virtual Review in [place], [place] 200 [place] [phone] 06/25/2025 8:10 AM CDT Lab Department of Laboratory Medicine and Pathology, [facility], in [place], [place] [address] [place] [phone] Tessa Jesus APRN, C.N.P., D.N.P. [address] [place] [phone] 06/25/2025 9:00 AM CDT [facility] in [place], [place] [address] [place] [phone] Tessa Jesus APRN, C.N.P., D.N.P. [address] [place] [phone] 06/25/2025 9:30 AM CDT Nurse Only [facility] in [place], [place] [address] [place] [phone] Tessa Jesus APRN, C.N.P., D.N.P. [address] [place] [phone] 06/25/2025 10:30 AM CDT Office Visit [facility] in [place], [place] [address] [place] [phone] Jessica Rousseau M.B.B.S. [address] [place] [phone] 06/26/2025 10:00 AM CDT Telemedicine Department of Palliative Care in [place], [place] [address] [place] [address] Isabel Sellers M.D. [address] [place] [phone] Debbie Shay M.D. [address] [place] [phone] documented as of this encounter Visit Diagnoses Not on filedocumented in this encounter Additional Health Concerns Infection Onset Date Last Indicated Resolved Time Protective Environment 03/02/2023 03/02/2023 Assessment Noted Time PHQ-9 Depression Total Score: 2 12/10/19 25 2:46 PM AUTOMOTIVE BUYER documented as of this encounter Care Teams Regulatory Submissions Specialist Relationship Specialty Start Date End Date Renzo Andres M.D. [address] [place] [phone] PCP - General Family Medicine 04/25/23 documented as of this encounter
--- OUTSIDE RECORDS SUMMARY | 2025-05-31 15:54 | XMS_ITS ---
Author Organization [facility] Address [address] [place] [address] Care Team Providers Care Scrap Crane Operator Name Role Phone Renzo Andres M.D. Primary Care Provider [phone] Active Problems * This document contains information received from the source organization and may not represent a complete record from that organization. Patient Care Coordination No te Formatting of this note is d ifferent from the original. Survivorship and Health Maintenance Testing initiated at Day +100 timeframe, then repeated annually as needed: Bone Marrow Biopsy: 03/10/25 Sort Chimerism: 04/29/25 PFTs: 03/23/25 DEXA scan: 03/20/25 Vitamin Lipid Panel: 03/24/25 TSH: 03/24/25 Ferritin: 03/24/25 Hgb A1C: 03/24/25 Colonoscopy/Cologuard: PAP: Mammogram: Dental: Eye: Dermatology: Immunization Education Visit (Day 100): 03/30/25 Immunizations: Diphtheria/Tetanus/Pertussis (DTaP) X Hepatitis A (Hep A) X X Hepatitis B (Hep B, dialysis formulation) X Haemophilus influenzae type B (HiB) X Meningococcal 4 valent MCV4 (Menveo or Menquadfi) X X Meningococcal B vaccine (Bexsero - if patient is age 10-25) NA NA X X Pneumonia vaccine (PCV20) Polio (IPV) X Shingles (Shingrix) X X Human Papillomavirus (if younger than 45 years old) X Influenza: COVID series: RSV: MMR: Local Lab/Provider: Dr. 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 Linked Problems Leukemia Myeloid Chronic BCR /ABL Positive Remission (HCC)Transplant Bone Marrow Allogeneic (HCC) Treatment Medications No medications scheduled. Vascular Access Patency - Central Venous Catheter (CVC) Tunneled Non-Valved* Plan Start Date:12/08/2024 Linked Problems Leukemia Myeloid Chronic BCR /ABL 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 Having Achieved Remission (HCC) Treatment Medications No medications scheduled. Past Treatment and Therapy Plans Conditional Blood Orders Platelets Plan Name Start Date Discontinue Date Treatment Medications Discontinue Reason Plan Provider Conditional Blood Administration - Platelets - For patients weighing greater than 35 kg - (Units) Hem Onc / BMT Only 12/02/2024 05/11/2025 No medications scheduled. Therapy Complete Tiffani Leroy APRN, C.N.P., D.N.P. Conditional Blood Orders RBC Plan Name Start Date Discontinue Date Treatment Medications Discontinue Reason Plan Provider Conditional Blood Administration - Red Blood Cells (RBC) For patients weighing greater than 35 kg (units) Hem Onc / BMT Only 12/02/2024 05/11/2025 No medications scheduled. Therapy Complete Tiffani Leroy APRN C.N.P., D.N.P. Hematology / Oncology Treatment 1 Plan Name Start Date Discontinue Date Treatment Medications Discontinue Reason Plan Provider Cycles Fludarabine / Busulfan 130 mg/m2 (Daily) Myeloablative Conditioning 5 04/22/2025 busulfan (Busulfex) IVPB in 1000 mL (Busulfex)busu lfan (Busulfex) IVPB in 500 mL (Busulfex)flud arabine (Fludara) IVPB (Fludara) Therapy Complete Jessica Rousseau M.B.B.S. 1 of 1 cycle started Imatinib ( Myeloid-Myelopro liferative ) 9 07/14/2019 imatinib (Gleevec) Therapy Complete Tone Fagan M.B.BKatalinaS. 1 of 6 cycles planned Hematology / Oncology Treatment 2 Plan Name Start Date Discontinue Date Treatment Medications Discontinue Reason Plan Provider Cycles GVHD Prophylaxis: Post-transplant cycloPHOSphamide / Mesna / Mycophenolate / Tacrolimus 12/10/19 25 04/22/2025 cycloPHOSphamide (Cytoxan) IVPB in 350 mL (1 g vial) (Cytoxan)mesna (Mesnex) IVPB (24 HOURS) (Mesnex) Therapy Complete Jessica Rousseau M.B.B.S. 1 of 1 cycle started GVHD Prophylaxis: Post-transplant cycloPHOSphamide / Mesna / Tacrolimus / Abatacept 12/10/19 25 12/02/2024 cycloPHOSphamide (Cytoxan) Unlisted Jessica Rousseau M.BKatalinaB.S. Treatment not started Infusion Therapy 1 Plan Name Start Date Discontinue Date Treatment Medications Discontinue Reason Plan Provider leuprolide (LUPRON) 12/02/2024 04/22/2025 No medications scheduled. Therapy Complete Jessica Rousseau M.B.B.S. LEUPROLIDE (LUPRON) 10/21/2021 10/09/2023 No medications scheduled. Therapy Complete Stephen Wallace M.B.BKatalinaSKatalina MEDICATION AT INFUSION THERAPY 12/17/2018 03/20/2019 No medications scheduled. Therapy Complete Kristin Fernandez R.N. Infusion Therapy 2 Plan Name Start Date Discontinue Date Treatment Medications Discontinue Reason Plan Provider electrolyte administration 01/13/2025 01/16/2025 No medications scheduled. Therapy Complete Carlee Armas APRN, C.N.PKatalina, D.N.P., M.S.N. electrolyte administration 01/13/2025 01/13/2025 No medications scheduled. Therapy Complete Carlee Armas APRN, C.N.P., D.N.P., M.S.N. pentamidine (NEBUPENT) Inhaled 12/02/2024 12/31/2024 No medications scheduled. Therapy Complete Jessica Rousseau M.B.B.SKatalina LEUPROLIDE (LUPRON) 06/24/2019 07/07/2020 No medic ations scheduled. Therapy Complete Stefan Thapa APRN C.N.P. LEUPROLIDE (LUPRON) AT INFUSION CENTER & LEUPROLIDE (LUPRON) 03/25/2019 06/24/2019 No medications scheduled. Therapy Complete Stefan Thapa APRN, C.N.P. Infusion Therapy 3 Plan Name Start Date Discontinue Date Treatment Medications Discontinue Reason Plan Provider electrolyte administration 01/13/2025 01/13/2025 No medications scheduled. Therapy Complete Carlee Armas APRN, C.N.PKatalina, D.N.P., M.S.N. Cellular Therapy * Episode Name Episode Status Transplant/Infusion Date Transplant/Infusion Center Donor Information Acute GVHD Chronic GVHD Contact Allo PBSC Txp Active Day 172 (12/10/24) [facility] UnrelatedMat ch Grade: 8/8HLA DP Match: Permissive Mismatch Latest : Not docume ntedMa x: Not docume nted Latest: Not document edMax: Not document ed Twin GodoyB.B.S. Phone: Fax: Octavio l: [email or web address] * Cell Therapy Appointments (05/01/2025 - 07/01/2025) When Visit Type With Description 05/17/2025 Hydration Therapy TXP BMT - Heuker, A Tra nsplant Bone Marrow Allogeneic (HCC) (Primary Dx); 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) 05/20/2025 Appointment TXP BMT - Tessa Jesus APRN, C.N.P., D.N.P.; Lida Olivas R.N. 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); Transplant Stem Cell (HCC) 05/25/2025 Patient Navigator Appointment Devi Worley 06/03/2025 Appointment TXP BMT 06/25/2025 Appointment TXP BMT - Deiv Rousseau Lifetime Dose Tracking * Chemical Lifetime Dose Automatic Entry Manual Entr y Radiation 8.93 mGy 8.93 mGy 0 mGy Fluoro Time 1.5 minutes 1.5 minutes 0 minutes Resolved Problems Problem Noted Date Diagnosed Date Resolved Date Mucositis 12/19/2024 05/28/2025 Encounter Admission For Chemotherapy 12/12/2024 12/15/2024 Pain Bone 09/20/2020 12/10/2024 Pain Epigastric 10/01/2019 12/10/2024 Gastroesophageal Reflux Disease 04/16/2019 09/17/2019 Sore Throat Chronic 04/08/2019 09/17/20 19 Localized Enlarged Lymph Nodes 04/03/2019 12/10/2024 Pain In Joint 03/06/2019 12/10/2024 Anemia 12/17/2018 09/17/2019 Thrombocytosis Unspecified 12/17/2018 0 04/03/2019 Leukocytosis 12/17/2018 04/03/2019 Leukemia Myeloid Chronic BCR /ABL 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 Having Achieved Remission 12/12/2018 09/17/2019 Depression Anxiety 12/12/2018 4 Constipation 12/12/2018 09/17/2019 Counseling Fertility Preserv ation Pre Cancer Therapy 12/12/2018 09/17/2019
--- OUTSIDE RECORDS SUMMARY | 2025-05-31 15:54 | XMS_ITS | Encounter Summary ---
Author Organization [facility] Address [address] [place] [address] Care Team Providers Care Tram Driver Name Role Phone Renzo Andres M.D. Primary Care Provider [phone] Encounter Details Date Type Department Care Team (Late st Contact Info) Description 05/31/2025 Clinical Communication [facility], Ninth Floor [address] [place] [phone] Jennyfer Santos RKatalinaNKatalina Social History Tobacco Use Types Packs/Day Years Used Date Smoking Tobacco: Never Smokeless Tobacco: Never Alcohol Use Standard Drinks/Week Comments Yes 0 (1 standard drink = 0.6 oz pur e alcohol) social [facility] Utilities Answer Date Recorded In the past 12 months has e [employer], gas, oil, or water [employer] threatened to shut off services in your [...] your living situation today? I [facility] to live 05/28/2025 Education Answer Date Recorded What is the highest level of school you have completed or the highest degree you have received? Some college, no degree 04/24/2019 Comments No Sex and Gender Information Value Date Recorded Sex Assigned at Female 12/26/2018 8:37 PM SUBSTITUTE CROSSING GUARD Legal Sex Female 2:43 PM SUBSTITUTE CROSSING GUARD Gender Identity Female 12/26/2018 8:37 PM SUBSTITUTE CROSSING GUARD Sexual Orientation Choose not to disclose 2020 3:46 PM CDT documented as of this encounter Miscellaneous Notes * Telephone Encounter - Jennyfer Santos RKatalinaN. - 05/31/2025 2:08 PM CDT Patient called station 94 saying she was having 6/10 chest pain that started yesterday evening and has continued today. Nursing told patient to report to nearest ED for a work up and patient was agreeable to plan. Electronically signed by: Deidra Santos R.N. 05/31/25 2:10 PM CDT documented in this encounter Plan of Treatment Upcoming Encounters Date Type Department Care Team (Latest Contact Info) Description 05/29/2025 11:59 PM CDT Anesthesia Event Division of Gastroenterology in [place], [place] [address] [place] [phone] Bri Valenzuela M.D. [address] [place] [phone] 06/01/2025 1:15 PM CDT Appointment Division of Gastroenterology in [place], [place] [address] [place] [phone] Lito Pollock P.A.-C. [address] [place] [phone] Jeaneth Núñez M.B.B.S., M.S. [address] [place] [phone] 06/03/2025 7:30 AM CDT Appointment Department of Laboratory Medicine in [place], [place] [address] [place] [address] Lito Pollock P.A.-C. [address] [place] [phone] 06/03/2025 10:00 AM CDT Telemedicine [facility] in [place], [place] [address] [place] [phone] Tessa Jesus, KARON, C.N.P., D.N.P. [address] [place] [phone] 06/10/2025 1:20 PM CDT Nurse Only Section of Infectious Diseases in [place], [place] [address] [place] [phone] Jessica Rousseau M.B.B.S. [address] [place] [phone] 06/15/2025 9:45 AM CDT Appointment Outpatient Procedure Center in [place], [place] [address] [place] [phone] Jessica Rousseau M.B.B.S. [address] [place] [phone] 06/24/2025 12:30 PM CDT Clinical Communication Virtual Review in [place], [place] 200 [place] [phone] 06/25/2025 8:10 AM CDT Lab Department of Laboratory Medicine and Pathology, [facility] in [place], [place] [address] [place] [phone] Tessa Jesus APRN, C.N.P., D.N.P. [address] [place] [phone] 06/25/2025 9:00 AM CDT [facility] in [place], [place] [address] [place] [phone] Tessa Jesus APRN, C.N.P., D.N.P. [address] [place] [phone] 06/25/2025 9:30 AM CDT Nurse Only Pedro Nazario [facility] for Transplantation and Clinical Regeneration in [place], [place] [address] [place] [phone] Tessa Jesus APRN, C.N.P., D.N.P. [address] [place] [phone] 06/25/2025 10:30 AM CDT Office Visit Pedro sanchez [facility] for Transplantation and Clinical Regeneration in [place], [place] [address] [place] [phone] Jessica Rousseau M.B.BKatalinaS. [address] [place] [phone] 06/26/2025 10:00 AM CDT Telemedicine Department of Palliative Care in [place], [place] [address] [place] [phone] Isabel Sellers M.D. [address] [place] [phone] Debbie Shay M.D. [address] [place] [phone] documented as of this encounter Visit Diagnoses Not on filedocumented in this encounter Additional Health Concerns Infection Onset Date Last Indicated Resolved Time Protective Environment 03/02/2023 03/02/2023 Assessment Noted Time PHQ-9 Depression Total Score: 2 12/10/19 25 2:46 PM SUBSTITUTE CROSSING GUARD documented as of this encounter Care Teams Tram Driver Relationship Specialty Start Date End Date Renzo Andres M.D. [address] [place] [phone] PCP - General Family Medicine 04/25/23 documented as of this encounter
--- OUTSIDE RECORDS SUMMARY | 2025-05-31 15:54 | XMS_ITS | Encounter Summary ---
Author Organization [facility] Address [address] [place] [address] Care Team Providers Care Chain Maker Loom Control Name Role Phone Renzo Andres M.D. Primary Care Provider Encounter Details Date Type Department Care Team (Latest Contact Info) Description 05/26/2025 Clinical Communication Pedro Nazario [facility] in [place], [place] [address] [place] [phone] Jessica Rousseau M.B.B.S. [address] [place] [address] Social History Tobacco Use Types Packs/Day Years Used Date Smoking Tobacco: Never Smokeless Tobacco: Never Alcohol Use Standard Drinks/Week Comments Yes 0 (1 standard drink = 0.6 oz pur e alcohol) social [facility] Utilities Answer Date Recorded In the [...] your living situation today? I have a [facility] place to live 05/28/2025 Education Answer Date Recorded What is the highest level of school you have completed or the highest degree you have received? Some college, no degree 04/24/2019 Comments No Sex and Gender Information Value Date Recorded Sex Assigned at Female 12/26/2018 8:37 PM CASH CONTROLLER Legal Sex Female 2:43 PM CASH CONTROLLER Gender Identity Female 12/26/2018 8:37 PM CASH CONTROLLER Sexual Orientation Choose not to disclose 2020 3:46 PM CDT documented as of this encounter Miscellaneous Notes * Telephone Encounter - Tara Marin R.N., BMT-CN - 05/28/2025 2:20 PM CDT Information Discussed Called patient and informed her, per Dr. Rousseau, that she will be admitted for workup. She stated she would be to [place] around 330 or 4 PLAN Information/Education: patient/caller able to teach back Caller agreeable to plan of care: yes The following references were used: provider Dr. Rousseau * Telephone Encounter - Tara Marin R.N., KHANH-VIJI - 05/28/2025 1:08 PM CDT ASSESSMENT Patient states that her nausea has worsened despite utilizing compazine. She says that she is now having weakness and decreased appetite where she has lost approx 5 lbs. She says that there is no emesis with the nausea, but she does have dry heaves after taking her pills. She says that she will take her compazine first and then a little bit later will take her pills with toast, but she still experiences nausea in waves all day long. She cannot attribute the nausea to any triggers. She denies fevers but does get chills throughout the day and says she is sweating more. She denies diarrhea and states that her stools are formed. Disposition/Recommendation: notified provider and awaiting recommendations. Information/Education: patient/caller able to teach back. Caller agreeable to plan of care: yes. The following references were used: nursing clinical judgement. * Telephone Encounter - Kayleen Rivas R.N. - 05/26/2025 3:53 PM CDT SUBJECTIVE CHIEF COMPLAINT / REASON FOR CALL Nausea ASSESSMENT Symptoms started on 05/20. Nausea, weakness, and cold sweats, no fevers. She has been taking compazine once a day. Eating and drinking less related to nausea. PLAN Increase compazine to every 6 hours to try and get nausea under control and focus on drinking fluids.Continue to check temperature. Disposition/Recommendation: notified provider and awaiting recommendations and self-care of fluids and nausea meds appropriate at this time, patient encouraged to call back with questions. Information/Education: patient/caller able to teach back. Caller agreeable to plan of care: yes. The following references were used: nursing clinical judgement and provider Soham. documented in this encounter Plan of Treatment Upcoming Encounters Date Type Department Care Team (Latest Contact Info) Description 05/29/2025 11:59 PM CDT Anesthesia Event Division of Gastroenterology in [place], [place] [address] [place] [phone] Bri Valenzuela M.D. [address] [place] [phone] 06/01/2025 1:15 PM CDT Appointment Division of Gastroenterology in [place], [place] [address] [place] [phone] Lito Pollock P.A.-C. [address] [place] [phone] Jeaneth Núñez M.B.B.S., M.S. [address] [place] [phone] 06/03/2025 7:30 AM CDT Appointment Department of Laboratory Medicine in [place], [place] [address] [place] [phone] Lito Pollock P.A.-C. [address] [place] [phone] 06/03/2025 10:00 AM CDT Telemedicine Pedro Nazario [facility] in [place], [place] [address] [place] [phone] Tessa Jesus, FABRICATION AND LAYOUT CRAFTSMAN, C.N.P., D.N.P. [address] [place] [phone] 06/10/2025 1:20 PM CDT Nurse Only Section of Infectious Diseases in [place], [place] [address] [place] [phone] Jessica Rousseau M.B.B.S. [address] [place] [phone] 06/15/2025 9:45 AM CDT Appointment Outpatient Procedure Center in [place], [place] [address] [place] [phone] Jessica Rousseau M.B.B.S. [address] [place] [phone] 06/24/2025 12:30 PM CDT Clinical Communication Virtual Review in [place], [place] 200 [place] [phone] 06/25/2025 8:10 AM CDT Lab Department of Laboratory Medicine and Pathology, [facility], in [place], [place] [address] [place] [phone] Tessa Jesus APRN, C.N.P., D.N.P. [address] [place] [phone] 06/25/2025 9:00 AM CDT [facility] [place], [place] [address] [place] [phone] Tessa Jesus APRN, C.N.P., D.N.P. [address] [place] [phone] 06/25/2025 9:30 AM CDT Nurse Only Pedro Lanza laura [facility] Clinical [facility]eneration in [place], [place] [address] [place] [phone] Tessa Jesus APRN, C.N.P., D.N.P. [address] [place] [phone] 06/25/2025 10:30 AM CDT [facility] in [place], [place] [address] [place] [address] Jessica Rousseau M.B.B.S. [address] [place] [phone] 06/26/2025 10:00 AM CDT Telemedicine Department of Palliative Care in [place], [place] [address] [place] [phone] Isabel Sellers M.D. [address] [place] [phone] Debbie Shay M.D. [address] [place] [phone] documented as of this encounter Visit Diagnoses Not on filedocumented in this encounter Additional Health Concerns Infection Onset Date Last Indicated Resolved Time Protective Environment 03/02/2023 03/02/2023 Assessment Noted Time PHQ-9 Depression Total Score: 2 12/10/19 25 2:46 PM CASH CONTROLLER documented as of this encounter Care Teams Chain Maker Loom Control Relationship Specialty Start Date End Date Renzo Andres M.D. [address] [place] [phone] PCP - General Family Medicine 04/25/23 documented as of this encounter
--- OUTSIDE RECORDS SUMMARY | 2025-05-31 15:54 | XMS_ITS | Encounter Summary ---
Author Organization [facility] Address [address] [place] [address] Care Team Providers Care Ibm Websphere Commerce Developer Name Role Phone Renzo Andres M.D. Primary Care Provider Encounter Details Date Type Department Care Team (Latest Contact Info) Description 12/19/2024 Intake [facility] Social History Tobacco Use Types Packs/Day Years Used Date Smoking Tobacco: Never Smokeless Tobacco: Never Alcohol Use Standard Drinks/Week Comments Yes 0 (1 standard drink = 0.6 oz pur e alcohol) social [facility] Utilities Answer Date Recorded In the past 12 months has [facility] [employer], gas, oil, or water [employer] threatened to shut off services in your [...] living situation today? I have a [facility] place to live 12/19/2024 Education Answer Date Recorded What is the highest level of school you have completed or the highest degree you have received? Some college, no degree 04/24/2019 Comments No Sex and Gender Information Value Date Recorded Sex Assigned at Female 12/26/2018 8:37 PM MELT SUPERINTENDANT Legal Sex Female 2:43 PM MELT SUPERINTENDANT Gender Identity Female 12/26/2018 8:37 PM MELT SUPERINTENDANT Sexual Orientation Choose not to disclose 2020 3:46 PM CDT documented as of this encounter Plan of Treatment Upcoming Encounters Date Type Department Care Team (Latest Contact Info) Description 05/29/2025 11:59 PM CDT Anesthesia Event Division of Gastroenterology in [place], [place] [address] [place] [phone] Bri Valenzuela M.D. 200 [place] [phone] 06/01/2025 1:15 PM CDT Appointment Division of Gastroenterology in [place], [place] [address] [place] [phone] Lito Pollock P.A.-C. 200 [place] [phone] Jeaneth Núñez M.B.B.S., M.S. [address] [place] [phone] 06/03/2025 7:30 AM CDT Appointment Department of Laboratory Medicine in [place], [place] 300 [facility] [place] [phone] Lito Pollock P.A.-C. [address] [place] [phone] 06/03/2025 10:00 AM CDT Telemedicine [facility] in [place], [place] [address] [place] [phone] Tessa Jesus, KARON, C.N.P., D.N.P. [address] [place] [phone] 06/10/2025 1:20 PM CDT Nurse Only Section of Infectious Diseases in [place], [place] [address] [place] [phone] Jessica Rousseau M.B.B.S. [address] [place] [phone] 06/15/2025 9:45 AM CDT Appointment Outpatient Procedure Center in [place], [place] [address] [place] [phone] Jessica Rousseau M.B.B.S. [address] [place] [phone] 06/24/2025 12:30 PM CDT Clinical Communication Virtual Review in [place], [place] 200 [place] [address] 06/25/2025 8:10 AM CDT Lab Department of Laboratory Medicine and Pathology, [facility], in [place], [place] [address] [place] [phone] Tessa Jesus APRN, C.N.P., D.N.P. [address] [place] [phone] 06/25/2025 9:00 AM CDT Office Visit [facility] Transplantation and Clinical Regeneration in [place], [place] [address] [place] [address] Tessa Jesus APRN, C.N.PKatalina, D.N.P. [address] [place] [phone] 06/25/2025 9:30 AM CDT Nurse Only [facility] Transplantation and Clinical Regeneration in [place], [place] [address] [place] [address] Tessa Jesus APRN C.N.P., D.N.P. [address] [place] [phone] 06/25/2025 10:30 AM CDT Office Visit [facility] Transplantation and Clinical Regeneration in [place], [place] [address] [place] [phone] Jessica Rousseau M.B.B.S. [address] [place] [phone] 06/26/2025 10:00 AM CDT Telemedicine Department of Palliative Care in [place], [place] [address] [place] [phone] Isabel Sellers M.D. [address] [place] [phone] Debbie Shay M.D. [address] [place] [phone] documented as of this encounter Visit Diagnoses Not on filedocumented in this encounter Additional Health Concerns Infection Onset Date Last Indicated Resolved Time Protective Environment 03/02/2023 03/02/2023 Assessment Noted Time PHQ-9 Depression Total Score: 2 12/10/19 25 2:46 PM MELT SUPERINTENDANT documented as of this encounter Care Teams Ibm Websphere Commerce Developer Relationship Specialty Start Date End Date Renzo Andres M.D. NPAmanda: [phone] [address] [place] [phone] PCP - General Family Medicine 04/25/23 documented as of this encounter
--- OUTSIDE RECORDS SUMMARY | 2025-05-31 15:54 | XMS_ITS | Encounter Summary ---
Author Organization [facility] Address [address] [place] [address] Care Team Providers Care Director Card Name Role Phone Renzo Andres M.D. Primary Care Provider [phone] Reason for Visit * Reason Onset Date Comments Prescreen Immunization Review 05/26/2025 Encounter Details Date Type Department Care Team (Latest Contact Info) Description 05/26/2025 Clinical Communication Section of Infectious Diseases in [place], [place] [address] [place] [address] Jennifer Marx RKatalinaNKatalina [address] [place] [phone] Prescreen Immunization Review Social History Tobacco Use Types Packs/Day Years [...] your living situation today? I have a [facility] place to live 12/19/2024 Education Answer Date Recorded What is the highest level of school you have completed or the highest degree you have received? Some college, no degree 04/24/2019 Comments No Sex and Gender Information Value Date Recorded Sex Assigned at Female 12/26/2018 8:37 PM POWDER OPERATOR Legal Sex Female 2:43 PM POWDER OPERATOR Gender Identity Female 12/26/2018 8:37 PM POWDER OPERATOR Sexual Orientation Choose not to disclose 2020 3:46 PM CDT documented as of this encounter Miscellaneous Notes * Telephone Encounter - Jennifer Marx R.N. - 05/26/2025 8:31 AM CDT Pre-Appt Vaccine Chart Review 05/26/2025 Patient not seen; Brief chart review only. Patient Type: SCT Visit 1. Date of SCT: 12/10/2024 (167 days). Pt is Immunosuppressed: Yes Vaccines Due (6 MONTHS AFTER SCT): SCT Visit 1 Additional Vaccines Needed: COVID #1 of 3 Missing Orders: Can order via Protocol Additional Notes: documented in this encounter Plan of Treatment Upcoming Encounters Date Type Department Care Team (Latest Contact Info) Description 05/29/2025 11:59 PM CDT Anesthesia Event Division of Gastroenterology in [place], [place] [address] [place] [phone] Bri Valenzuela M.D. [address] [place] [phone] 06/01/2025 1:15 PM CDT Appointment Division of Gastroenterology in [place], [place] [address] [place] [phone] Lito Pollock P.A.-C. [address] [place] [phone] Jeaneth Núñez M.B.BKatalinaS., M.S. [address] [place] [phone] 06/03/2025 7:30 AM CDT Appointment Department of Laboratory Medicine in [address] [phone] Lito Pollock P.A.-C. [address] [place] [phone] 06/03/2025 10:00 AM CDT [facility]med[facility] in [place], [place] [address] [place] [phone] Tessa Jesus APRN, C.N.P., D.N.P. [address] [place] [phone] 06/10/2025 1:20 PM CDT Nurse Only Section of Infectious Diseases in [place], [place] [address] [place] [phone] Jessica Rousseau M.B.B.S. [address] [place] [phone] 06/15/2025 9:45 AM CDT Appointment Outpatient Procedure Center in [place], [place] [address] [place] [phone] Jessica Rousseau M.B.B.S. [address] [place] [phone] 06/24/2025 12:30 PM CDT Clinical Communication Virtual Review in [place], [place] 200 [place] [phone] 06/25/2025 8:10 AM CDT Lab Department of Laboratory Medicine and Pathology, [facility], in [place], [place] [address] [place] [phone] Tessa Jesus APRN, C.N.P., D.N.P. [address] [place] [phone] 06/25/2025 9:00 AM CDT Office Visit Pedro Lanza laura [facility] for Trans[facility] and Clinical Regeneration in [place], [place] [address] [place] [phone] Tessa Jesus APRN, C.N.P., D.N.P. [address] [place] [phone] 06/25/2025 9:30 AM CDT Nurse Only Pedro Aravind [facility] for Transplantation and Clinical Regeneration in [place], [place] [address] [place] [address] Tessa Jesus APRN, C.N.P., D.N.P. [address] [place] [phone] 06/25/2025 10:30 AM CDT [facility] in [place], [place] [address] [place] [address] Jessica Rousseau M.B.B.SKatalina [address] [place] [phone] 06/26/2025 10:00 AM CDT Telemedicine Department of Palliative Care in [place], [place] [address] [place] [phone] Isabel Sellers M.D. [address] [place] [phone] Debbie Shay M.D. [address] [place] [phone] documented as of this encounter Visit Diagnoses Not on filedocumented in this encounter Additional Health Concerns Infection Onset Date Last Indicated Resolved Time Protective Environment 03/02/2023 03/02/2023 Assessment Noted Time PHQ-9 Depression Total Score: 2 12/10/19 25 2:46 PM POWDER OPERATOR documented as of this encounter Care Teams Director Card Relationship Specialty Start Date End Date Renzo Andres M.D. [address] [place] [phone] PCP - General Family Medicine 04/25/23 documented as of this encounter
--- OUTSIDE RECORDS SUMMARY | 2025-05-31 15:54 | XMS_ITS | Encounter Summary ---
Author Organization [facility] Address [address] [place] [address] Care Team Providers Care Insurance Writer Name Role Phone Renzo Andres M.D. 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 [address] [place] [address] Phone: tel: fax: [facility] Referral ID Status Reason Start Date Expiration Date V isits Requested Visits Authorized [id number] Authorized 05/29/2025 08/29/2026 1 1 Encounter Details Date Type Department Care Team (Late st Contact Info) Description 05/29/2025 Orders Only [facility], Ninth Floor [address] [place] [address] Lito Pollock P.A.-C. 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 I have a [facility] place to live 05/28/2025 Education Answer Date Recorded What is the highest level of school you have completed or the highest degree you have received? Some college, no degree 04/24/2019 Comments No Sex and Gender Information Value Date Recorded Sex Assigned at Female 12/26/2018 8:37 PM GAS SHOVEL OPERATOR Legal Sex Female 2:43 PM GAS SHOVEL OPERATOR Gender Identity Female 12/26/2018 8:37 PM GAS SHOVEL OPERATOR Sexual Orientation Choose not to disclose 2020 3:46 PM CDT documented as of this encounter Plan of Treatment Upcoming Encounters Date Type Department Care Team (Latest Contact Info) Description 05/29/2025 11:59 PM CDT Anesthesia Event Division of Gastroenterology in [place], [place] [address] [place] [phone] Bri Valenzuela M.D. [address] [place] [phone] 06/01/2025 1:15 PM CDT Appointment Division of Gastroenterology in [place], [place] [address] [place] [phone] Lito Pollock P.A.-C. [address] [place] [phone] Jeaneth Núñez M.B.B.S., M.S. [address] [place] [phone] 06/03/2025 7:30 AM CDT Appointment Department of Laboratory Medicine in [address] [phone] Lito Pollock P.A.-C. [address] [place] [phone] 06/03/2025 10:00 AM CDT [facility]medicine [facility] in [place], [place] [address] [place] [phone] Tessa Jesus, KARON, C.N.P., D.N.P. [address] [place] [phone] 06/10/2025 1:20 PM CDT Nurse Only Section of Infectious Diseases in [place], [place] [address] [place] [phone] Jessica Rousseau M.B.B.S. [address] [place] [phone] 06/15/2025 9:45 AM CDT Appointment Outpatient Procedure Center in [place], [place] [address] [place] [phone] Jessica Rousseau M.B.B.S. [address] [place] [phone] 06/24/2025 12:30 PM CDT Clinical Communication Virtual Review in [place], [place] 200 [place] [phone] 06/25/2025 8:10 AM CDT Lab Department of Laboratory Medicine and Pathology, [facility], in [place], [place] [address] [place] [phone] Tessa Jesus APRN, C.N.P., D.N.P. [address] [place] [phone] 06/25/2025 9:00 AM CDT Office [facility] in [place], [place] [address] [place] [phone] Tessa Jesus APRN, C.N.P., D.N.P. [address] [place] [phone] 06/25/2025 9:30 AM CDT Nurse Only [facility] in [place], [place] [address] [place] [phone] Tessa Jesus APRN, C.N.P., D.N.P. [address] [place] [phone] 06/25/2025 10:30 AM CDT Office Visit Pedro Aravind [facility] Trans[facility] and Clinical Regeneration in [place], [place] [address] [place] [phone] Jessica Rousseau M.B.B.S. [address] [place] [phone] 06/26/2025 10:00 AM CDT Telemedicine Department of Palliative Care in [place], [place] [address] [place] [phone] Isabel Sellers M.D. [address] [place] [phone] Debbie Shay M.D. 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) Expected: 06/03/2025, Expires: 08/29/2026 Comprehensive Metabolic Panel Lab Routine Transplant Stem Cell (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) Expected: 06/03/2025, Expires: 08/29/2026 LD (Lactate Dehydrogenase) Lab Routine Transplant Stem Cell (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) Expected: 06/03/2025, Expires: 08/29/2026 Magnesium Lab Routine Transplant Stem Cell (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) Expected: 06/03/2025, Expires: 08/29/2026 CMV DNA Detect / Quant, Plasma Microbiology Routine Transplant Stem Cell (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) Expected: 06/03/2025, Expires: 08/29/2026 documented as of this encounter Visit Diagnoses Diagnosis 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)- Primary Transplant Stem Cell (HCC) documented in this encounter Additional Health Concerns Infection Onset Date Last Indicated Resolved Time Protective Environment 03/02/2023 03/02/2023 Assessment Noted Time PHQ-9 Depression Total Score: 2 12/10/19 25 2:46 PM GAS SHOVEL OPERATOR documented as of this encounter Care Teams Insurance Writer Relationship Specialty Start Date End Date Renzo Andres M.D. [address] [place] [phone] PCP - General Family Medicine 04/25/23 documented as of this encounter
--- OUTSIDE RECORDS SUMMARY | 2025-05-31 15:55 | XMS_ITS | Encounter Summary ---
Author Organization [facility] Address [address] [place] [address] Care Team Providers Care Cell Operation Supervisor Name Role Phone Renzo Andres M.D. Primary Care Provider [phone] Reason for Referral * Outpatient (Routine) - Closed Specialty Diagnoses / Procedures Referred By Estefania acosta Referred To Contact Palliative Medicine Diagnoses Transplant Stem Cell (HCC) Becky Hernandez APRN, C.N.PKatalina, D.N.P. [address] [place] [phone] Phone: tel: fax: [facility] Referral ID Status Reason Start Date Expiration Date Visits Re quested Visits Authorized [id number] Closed 04/18/2025 10/18/2026 1 1 * Transplant (Routine) - Closed Specialty Diagnoses / Procedures Referred By Estefania acosta Referred To Contact Transplant Becky Hernandez APRN, C.N.P., D.N.P. [address] [place] [phone] Phone: tel: fax: [facility] Referral ID Status Reason Start Date Expiration Date Visits Re quested Visits Authorized [id number] Closed 04/18/2025 10/18/2026 1 1 Scheduling Instructions Please schedule with ANUPAM for 60 minutes. Encounter Details Date Type Department Care Team (Late st Contact Info) Description 04/18/2025 Orders Only Pedro Fatima [place] [facility] in [place], [place] [address] [place] [phone] Becky Hernandez APRN, C.N.P., D.N.P. [address] [place] [phone] Transplant Stem Cell (HCC) (Primary Dx) Social History Tobacco Use Types Packs/Day Years Used Date Smoking Tobacco: Never Smokeless Tobacco: Never Alcohol Use Standard Drinks/Week Comments Yes 0 (1 standard drink = 0.6 oz pur e alcohol) social [facility] Utilities Answer Date Recorded In the past 12 months has e [employer], gas, oil, or water [email or web address] threatened to shut off services in your [...] living situation today? I have a [facility] place to live 12/19/2024 Education Answer Date Recorded What is the highest level of school you have completed or the highest degree you have received? Some college, no degree 04/24/2019 Comments No Sex and Gender Information Value Date Recorded Sex Assigned at Female 12/26/2018 8:37 PM FERRYBOAT CAPTAIN Legal Sex Female 2:43 PM FERRYBOAT CAPTAIN Gender Identity Female 12/26/2018 8:37 PM FERRYBOAT CAPTAIN Sexual Orientation Choose not to disclose 2020 3:46 PM CDT documented as of this encounter Plan of Treatment Upcoming Encounters Date Type Department Care Team (Latest Contact Info) Description 05/29/2025 11:59 PM CDT Anesthesia Event Division of Gastroenterology in [place], [place] [address] [place] [phone] Bri Valenzuela M.D. [address] [place] [phone] 06/01/2025 1:15 PM CDT Appointment Division of Gastroenterology in [place], [place] [address] [place] [phone] Lito Pollock P.A.-C. [address] [place] [phone] Jeaneth Núñez M.B.B.S., M.S. [address] [place] [phone] 06/03/2025 7:30 AM CDT Appointment Department of Laboratory Medicine in [place], [place] [address] [facility] [place] [phone] Lito Pollock P.A.-C. [address] [place] [phone] 06/03/2025 10:00 AM CDT Telemedicine [facility] for Transplantation and Clinical Regeneration in [place], [place] [address] [place] [phone] Tessa Jesus APRN, C.N.P., D.N.P. [address] [place] [phone] 06/10/2025 1:20 PM CDT Nurse Only Section of Infectious Diseases in [place], [place] [address] [place] [phone] Jessica Rousseau M.B.B.S. [address] [place] [phone] 06/15/2025 9:45 AM CDT Appointment Outpatient Procedure Center in [address] [phone] Jessica Rousseau M.B.B.S. [address] [place] [phone] 06/24/2025 12:30 PM CDT Clinical Communication Virtual Review in [place], [place] 200 [place] [phone] 06/25/2025 8:10 AM CDT Lab Department of Laboratory Medicine and Pathology, [facility], in [place], [place] [address] [place] [phone] Tessa Jesus APRN, C.N.P., D.N.P. [address] [place] [phone] 06/25/2025 9:00 AM CDT Office Visit [facility] Transplantation and Clinical Regeneration in [place], [place] [address] [place] [phone] Tessa Jesus APRN, C.N.P., D.N.P. [address] [place] [phone] 06/25/2025 9:30 AM CDT Nurse Only [facility] Transplantation and Clinical Regeneration in [place], [place] [address] [place] [phone] Tessa Jesus APRN, C.N.P., D.N.P. [address] [place] [phone] 06/25/2025 10:30 AM CDT Office Visit [facility] Transplantation and Clinical Regeneration in [place], [place] [address] [place] [phone] Jessica Rousseau M.B.B.S. [address] [place] [phone] 06/26/2025 10:00 AM CDT Telemedicine Department of Palliative Care in [place], [place] [address] [place] [phone] Isabel Sellers M.D. [address] [place] [phone] Debbie Shay M.D. [address] [place] [phone] Scheduled Referrals Name Type Priority Associated Diagnoses Order Schedule Transplant Bone marrow office visit (clinic) Outpatient Referral Routine Expected: 04/22/2025 (Approximate), Expires: 07/19/2026 Palliative Medicine - General consult (clinic) Outpatient Referral Routine Transplant Stem Cell (HCC) Expected: 04/18/2025, Expires: 07/19/2026 documented as of this encounter Visit Diagnoses Diagnosis Transplant Stem Cell (HCC)- Primary documented in this encounter Additional Health Concerns Infection Onset Date Last Indicated Resolved Time Protective Environment 03/02/2023 03/02/2023 Assessment Noted Time PHQ-9 Depression Total Score: 2 12/10/19 25 2:46 PM FERRYBOAT CAPTAIN documented as of this encounter Care Teams Cell Operation Supervisor Relationship Specialty Start Date End Date Renzo Andres M.D. [address] [place] [phone] PCP - General Family Medicine 04/25/23 documented as of this encounter
--- OUTSIDE RECORDS SUMMARY | 2025-05-31 15:55 | XMS_ITS | Encounter Summary ---
Author Organization [facility] Address [address] [place] [address] Care Team Providers Care Estimator Binding Name Role Phone Renzo Andres M.D. Primary Care Provider [phone] Reason for Visit * Reason Onset Date Comments Lab Monitoring 05/11/2025 05/08/2025 Encounter Details Date Type Department Care Team (Latest Contact Info) Description 05/11/2025 Clinical Communication [facility] in [place], [place] [address] [place] [phone] Arely Taylor, R.N. [address] [place] [phone] Lab Monitoring (05/08/2025) Social History Tobacco Use Types Packs/Day Years [...] your living situation today? I have a [facility] place to live 12/19/2024 Education Answer Date Recorded What is the highest level of school you have completed or the highest degree you have received? Some college, no degree 04/24/2019 Comments No Sex and Gender Information Value Date Recorded Sex Assigned at Female 12/26/2018 8:37 PM HEEL VARNISHER Legal Sex Female 2:43 PM HEEL VARNISHER Gender Identity Female 12/26/2018 8:37 PM HEEL VARNISHER Sexual Orientation Choose not to disclose 2020 3:46 PM CDT documented as of this encounter Miscellaneous Notes * Telephone Encounter - Arely Taylor R.N. - 05/11/2025 1:[address] Rousseau, Current Immunosuppression: N/A Date of Last Dose Change: GVHD:no Misc: From visit with BALDO Nye on 04/29/2025, # Disposition - Follow-up labs, pharmacy, RN/provider in three weeks. - Local labs at [facility] in 10 days. BMT Allogenic transplant date: 12/10/2024 (152 days) Lab frequency: weekly Next BMT visit: 05/20/2025 Outside labs from 05/08/2025 are located in the Labs section of [employer]. Labs pending: None Resulted Labs: Recent Labs 05/08/25 1235 04/29/25 0941 04/20/25 1002 HGB 12.4 12.9 11.8 PLT 220 213 177 HCT 38.4 39.8 37.3 WBC 4.3 4.2 3.5 NEUTROPHILS 2.77 2.90 2.55 EOSINOPHILS 0.17 0.17 0.09 MONOCYTES 0.31 0.24 L 0.22 L Recent Labs 05/08/25 1235 04/29/25 0941 04/20/25 1002 04/08/25 1110 04/08/25 1110 03/24/25 0930 03/24/25 0929 CREATININE 0.78 0.80 0.65 < > 0.81 -- 0.95 GLUCOSE 126 H 135 H 146 H -- 116 H -- 110 H HGBA1C -- -- -- -- -- 4.9 -- NA 139 140 139 -- 138 -- 137 KPLASMA 4.4 -- 4.4 -- -- -- -- KSERUM -- 4.5 -- -- 4.8 -- 4.4 MG 2.2 2.0 2.0 -- 2.2 -- 2.2 BICARB -- -- 26 -- -- -- -- BUN 9 11 8 -- 9 -- 11 < > = values in this interval not displayed. Recent Labs 05/08/25 1235 04/29/25 0941 04/20/25 1002 03/24/25 0930 03/24/25 0929 03/18/25 1252 03/10/25 1011 ALKPHOS 93 119 H 90 < > 99 < > 112 H AST 37 49 H 38 < > -- < > 27 ALT 40 62 H 52 H < > 40 < > 40 BILITOT 0.2 0.2 <0.2 < > -- < > 0.2 ALBUMIN 4.3 4.4 4.1 < > 4.3 < > 4.5 PT -- -- -- -- -- -- 10.8 INR -- -- -- -- -- -- 1.0 TSH -- -- -- -- 1.8 -- -- < > = values in this interval not displayed. Immunosuppressant(s): Recent Labs 03/03/25 0915 02/27/25 1000 02/24/25 0805 TACROLIMUS 5.3 4.1 L 4.3 L Serologies: Recent Labs 05/08/25 1235 04/29/25 0942 04/08/25 1110 CMVQUANT Undetected Undetected Undetected Recent Labs 03/24/25 0930 03/18/25 1252 03/10/25 1012 EBVDNADETQUP Undetected Undetected Undetected Please respond to P RST TXP BMT TEAM 2 RN if any follow up is needed. Thanks! documented in this encounter Plan of Treatment Upcoming Encounters Date Type Department Care Team (Latest Contact Info) Description 05/29/2025 11:59 PM CDT Anesthesia Event Division of Gastroenterology in [place], [place] [address] [place] [phone] Bri Valenzuela M.D. [address] [place] [phone] 06/01/2025 1:15 PM CDT Appointment Division of Gastroenterology in [place], [place] [address] [place] [phone] Lito Pollock P.A.-C. [address] [place] [phone] Jeaneth Núñez M.B.B.S., M.S. [address] [place] [phone] 06/03/2025 7:30 AM CDT Appointment Department of Laboratory Medicine in [address] [phone] Lito Pollock P.A.-C. [address] [place] [phone] 06/03/2025 10:00 AM CDT [facility]medicine [facility] in [place], [place] [address] [place] [phone] Tessa Jesus APRN, Satnam.N.P., D.N.P. [address] [place] [phone] 06/10/2025 1:20 PM CDT Nurse Only Section of Infectious Diseases in [place], [place] [address] [place] [phone] Jessica Rousseau M.B.B.S. [address] [place] [phone] 06/15/2025 9:45 AM CDT Appointment Outpatient Procedure Center in [place], [place] [address] [place] [phone] Jessica Rousseau M.B.B.S. [address] [place] [phone] 06/24/2025 12:30 PM CDT Clinical Communication Virtual Review in [place], [place] 200 [place] [phone] 06/25/2025 8:10 AM CDT Lab Department of Laboratory Medicine and Pathology, [facility], in [place], [place] [address] [place] [phone] Tessa Jesus APRN, C.N.P., D.N.P. [address] [place] [phone] 06/25/2025 9:00 AM CDT Office Visit [facility] Transplantation and Clinical Regeneration in [place], [place] [address] [place] [phone] Tessa Jesus APRN C.N.PKatalina, D.N.P. [address] [place] [phone] 06/25/2025 9:30 AM CDT Nurse Only [facility] Transplantation and Clinical Regeneration in [place], [place] [address] [place] [phone] Tessa Jesus APRN, C.N.Jean., D.N.P. [address] [place] [phone] 06/25/2025 10:30 AM CDT Office Visit [facility] Transplantation and Clinical Regeneration in [place], [place] [address] [place] [phone] Jessica Rousseau M.B.BKatalinaS. [address] [place] [phone] 06/26/2025 10:00 AM CDT Telemedicine Department of Palliative Care in [place], [place] [address] [place] [phone] Isabel Sellers M.D. [address] [place] [phone] Debbie Shay M.D. 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 [address] [place] [address] [place] [phone] PCP - General Family Medicine 04/25/23 documented as of this encounter
--- OUTSIDE RECORDS SUMMARY | 2025-05-31 15:55 | XMS_ITS | Encounter Summary ---
Author Organization [facility] Address [address] [place] [address] Care Team Providers Care Band Tacker Name Role Phone Renzo Andres M.D. Primary Care Provider Encounter Details Date Type Department Care Team (Latest Contact Info) Description 04/20/2025 Clinical Communication Pedro Nazario [facility] for Transplantation and Clinical Regeneration in [place], [place] [address] [place] [address] Tara Marin R.N., BMT-CN [address] [place] [address] Social History Tobacco Use Types Packs/Day Years [...] living situation today? I have a [facility] place to live 12/19/2024 Education Answer Date Recorded What is the highest level of school you have completed or the highest degree you have received? Some college, no degree 04/24/2019 Comments No Sex and Gender Information Value Date Recorded Sex Assigned at Female 12/26/2018 8:37 PM WILLOW MACHINE OPERATOR Legal Sex Female 2:43 PM WILLOW MACHINE OPERATOR Gender Identity Female 12/26/2018 8:37 PM WILLOW MACHINE OPERATOR Sexual Orientation Choose not to disclose 2020 3:46 PM CDT documented as of this encounter Miscellaneous Notes * Telephone Encounter - Tara Marin R.N., BMT-CN - 04/20/2025 3:[address] Rousseau, Outside labs from 04/20/25 are located in the Labs section of [employer]. Labs pending: none Resulted Labs: Recent Labs 04/20/25 1002 04/08/25 1110 03/24/25 0930 HGB 11.8 12.7 11.5 L PLT 177 218 184 HCT 37.3 39.0 36.6 WBC 3.5 4.7 4.3 NEUTROPHILS 2.55 3.54 3.21 EOSINOPHILS 0.09 0.07 0.08 MONOCYTES 0.22 L 0.34 0.34 Recent Labs 04/20/25100104/08/25 11103/24/2592903/24/25 0903/18/25 1252 CREATININE 0.65 0.81 -- 0.95 0.89 GLUCOSE 146 H 116 H -- 110 H 114 H HGBA1C -- -- 4.9 -- -- NA 139 138 -- 137 139 KPLASMA 4.4 -- -- -- -- KSERUM -- 4.8 -- 4.4 4.7 MG 2.0 2.2 -- 2.2 2.2 BICARB 26 -- -- -- -- BUN 8 9 -- 11 13 Recent Labs 04/20/25100104/08/25110903/24/2592903/24/2592803/18/25 12503/10/25 1011 ALKPHOS 90 112 H -- 99 < > 112 H AST 38 42 31 -- < > 27 ALT 52 H 60 H -- 40 < > 40 BILITOT <0.2 <0.2 0.2 -- < > 0.2 ALBUMIN 4.1 4.5 -- 4.3 < > 4.5 PT -- -- -- -- -- 10.8 INR -- -- -- -- -- 1.0 TSH -- -- -- 1.8 -- -- < > = values in this interval not displayed. Immunosuppressant(s): Recent Labs 03/03/25 0902/27/25 1000 02/24/25 0805 TACROLIMUS 5.3 4.1 L 4.3 L Serologies: Recent Labs 04/08/25 11103/24/25 0903/18/25 1252 CMVQUANT Undetected Undetected Undetected Recent Labs 03/24/2592903/18/25125103/10/25 1012 EBVDNADETQUP Undetected Undetected Undetected Current Immunosuppression: Tacrolimus 0.5 mg twice weekly for 2 weeks Misc: mag oxide 400 mg daily. 04/18 visit: Discussed with pt to try taking a 1/2 dose of dilaudid today during the day. I am goingto request a follow-up with palliative medicine for further recommendations. I have set up a video visit follow-up with an CARBONIZER TESTER on [address] to further discuss symptoms and up titration of gabapentin, consider increasing to 600 TID. She had no further questions or concerns and knows to contact [address] or [address] if she has any questions or concerns. BMT Allogenic transplant date: 12/10/2024 (131 days) Lab frequency: once Next BMT visit: 04/22 video visit 04/29 in person Please respond to P RST TXP BMT TEAM 2 RN if any follow up is needed. Thanks! documented in this encounter Plan of Treatment Upcoming Encounters Date Type Department Care Team (Latest Contact Info) Description 05/29/2025 11:59 PM CDT Anesthesia Event Division of Gastroenterology in [place], [place] [address] [place] [phone] Bri Valenzuela M.D. [address] [place] [phone] 06/01/2025 1:15 PM CDT Appointment Division of Gastroenterology in [place], [place] [address] [place] [phone] Lito Pollock P.A.-C. [address] [place] [phone] Jeaneth Núñez M.B.B.S., M.S. [address] [place] [phone] 06/03/2025 7:30 AM CDT Appointment Department of Laboratory Medicine in [place] [address] [place] [phone] Lito Pollock P.A.-C. [address] [place] [phone] 06/03/2025 10:00 AM CDT Telemedicine [facility] for Transplantation and Clinical Regeneration in [place], [place] [address] [place] [phone] Tessa Jesus APRN, C.N.P., D.N.P. [address] [place] [phone] 06/10/2025 1:20 PM CDT Nurse Only Section of Infectious Diseases in [place], [place] [address] [place] [phone] Jessica Rousseau M.B.B.S. [address] [place] [phone] 06/15/2025 9:45 AM CDT Appointment Outpatient Procedure Center in [place], [place] [address] [place] [phone] Jessica Rousseau M.B.B.S. [address] [place] [phone] 06/24/2025 12:30 PM CDT Clinical Communication Virtual Review in [place], [place] 200 [place] [address] 06/25/2025 8:10 AM CDT Lab Department of Laboratory Medicine and Pathology, [facility], in [place], [place] [address] [place] [phone] Tessa Jesus APRN, C.N.P., D.N.P. [address] [place] [phone] 06/25/2025 9:00 AM CDT Office Visit [facility] for Transplantation and Clinical Regeneration in [place], [place] [address] [place] [phone] Tessa Jesus APRN, C.N.P., D.N.P. [address] [place] [phone] 06/25/2025 9:30 AM CDT Nurse Only [facility] in [place], [place] [address] [place] [phone] Tessa Jesus APRN, C.N.P., D.N.P. [address] [place] [phone] 06/25/2025 10:30 AM CDT Office Visit [facility] Transplantation and Clinical Regeneration in [place], [place] [address] [place] [phone] Jessica Rousseau M.B.B.SKatalina [address] [place] [phone] 06/26/2025 10:00 AM CDT Telemedicine Department of Palliative Care in [place], [place] [address] [place] [phone] Isabel Sellers M.D. [address] [place] [phone] Debbie Shay M.D. [address] [place] [phone] documented as of this encounter Visit Diagnoses Not on filedocumented in this encounter Additional Health Concerns Infection Onset Date Last Indicated Resolved Time Protective Environment 03/02/2023 03/02/2023 Assessment Noted Time PHQ-9 Depression Total Score: 2 12/10/19 25 2:46 PM WILLOW MACHINE OPERATOR documented as of this encounter Care Teams Band Tacker Relationship Specialty Start Date End Date Renzo Andres M.D. [address] [place] [address] [place] [address] PCP - General Family Medicine 04/25/23 documented as of this encounter
--- OUTSIDE RECORDS SUMMARY | 2025-05-31 15:55 | XMS_ITS | Encounter Summary ---
Author Organization [facility] Address [address] [place] [address] Care Team Providers Care Emergency Vehicle Driver Name Role Phone Renzo Andres M.D. Primary Care Provider Reason for Visit * Reason Onset Date Comments Scheduling 04/29/2025 Encounter Details Date Type Department Care Team (Late st Contact Info) Description 04/29/2025 Clinical Communication Division of Hematology in [place], [place] [address] [place] [phone] Jessica Rousseau M.B.B.S. [address] [place] [phone] Scheduling Social History Tobacco Use Types Packs/Day Years Used Date Smoking Tobacco: Never Smokeless Tobacco: Never Alcohol Use Standard Drinks/Week Comments Yes 0 (1 standard drink = 0.6 oz pur e alcohol) social [facility] Utilities Answer Date Recorded In the past 12 months has e TRAN[employer]SL, gas, oil, or water company threatened to [...] your living situation today? I have a [facility] place to live 05/28/2025 Education Answer Date Recorded What is the highest level of school you have completed or the highest degree you have received? Some college, no degree 04/24/2019 Comments No Sex and Gender Information Value Date Recorded Sex Assigned at Female 12/26/2018 8:37 PM INTERVENTIONAL PHYSIATRIST Legal Sex Female 2:43 PM INTERVENTIONAL PHYSIATRIST Gender Identity Female 12/26/2018 8:37 PM INTERVENTIONAL PHYSIATRIST Sexual Orientation Choose not to disclose 2020 3:46 PM CDT documented as of this encounter Plan of Treatment Upcoming Encounters Date Type Department Care Team (Latest Contact Info) Description 05/29/2025 11:59 PM CDT Anesthesia Event Division of Gastroenterology in [place], [place] 200 [place] [phone] Bri Valenzuela M.D. 200 [place] [phone] 06/01/2025 1:15 PM CDT Appointment Division of Gastroenterology in [place], [place] [address] [place] [phone] Lito Pollock P.A.-C. [address] [place] [phone] Jeaneth Núñez M.B.BKatalinaS., M.S. [address] [place] [phone] 06/03/2025 7:30 AM CDT Appointment Department of Laboratory Medicine in [address] [phone] Lito Pollock P.A.-C. [address] [place] [phone] 06/03/2025 10:00 AM CDT Telemedicine [facility] for Transplantation and Clinical Regeneration in [place], [place] [address] [place] [phone] Tessa Jesus, KARON, C.N.P., D.N.P. [address] [place] [phone] 06/10/2025 1:20 PM CDT Nurse Only Section of Infectious Diseases in [place], [place] [address] [place] [phone] Jessica Rousseau M.B.B.S. [address] [place] [phone] 06/15/2025 9:45 AM CDT Appointment Outpatient Procedure Center in [place], [place] [address] [place] [phone] Jessica Rousseau M.B.B.S. [address] [place] [phone] 06/24/2025 12:30 PM CDT Clinical Communication Virtual Review in [place], [place] 200 [place] [address] 06/25/2025 8:10 AM CDT Lab Department of Laboratory Medicine and Pathology, [facility], in [place], [place] [address] [place] [phone] Tessa Jesus APRN, C.N.P., D.N.P. [address] [place] [phone] 06/25/2025 9:00 AM CDT Office Visit [facility] Trans[facility] and Clinical Regeneration in [place], [place] [address] [place] [phone] Tessa Jesus APRN, C.N.P., D.N.P. [address] [place] [phone] 06/25/2025 9:30 AM CDT Nurse Only [facility] for Transplantation and Clinical Regeneration in [place], [place] [address] [place] [phone] Tessa Jesus APRN, C.N.P., D.N.P. [address] [place] [phone] 06/25/2025 10:30 AM CDT Office Visit [facility] for Transplantation and Clinical Regeneration in [place], [place] [address] [place] [phone] Jessica Rousseau M.B.B.S. [address] [place] [phone] 06/26/2025 10:00 AM CDT Telemedicine Department of Palliative Care in [place], [place] [address] [place] [phone] Isabel Sellers M.D. [address] [place] [phone] Debbie Shay M.D. [address] [place] [phone] documented as of this encounter Visit Diagnoses Not on filedocumented in this encounter Additional Health Concerns Infection Onset Date Last Indicated Resolved Time Protective Environment 03/02/2023 03/02/2023 Assessment Noted Time PHQ-9 Depression Total Score: 2 12/10/19 25 2:46 PM INTERVENTIONAL PHYSIATRIST documented as of this encounter Care Teams Emergency Vehicle Driver Relationship Specialty Start Date End Date Renzo Andres M.D. [address] [place] [phone] PCP - General Family Medicine 04/25/23 documented as of this encounter
--- OUTSIDE RECORDS SUMMARY | 2025-05-31 15:55 | XMS_ITS | Encounter Summary ---
Author Organization [facility] Address [address] [place] [address] Care Team Providers Care Air Cargo Ground Crew Supervisor Name Role Phone Renzo Andres M.D. Primary Care Provider Encounter Details Date Type Department Care Team (Late st Contact Info) Description 04/18/2025 Orders Only [facility], [facility], [facility], Ninth Floor [address] [place] [phone] Becky Hernandez APRN, C.N.P., D.N.P. [address] [place] [phone] Social History Tobacco Use Types Packs/Day Years [...] Sex Assigned at Female 12/26/2018 8:37 PM GIFT SHOP MANAGER Legal Sex Female 2:43 PM GIFT SHOP MANAGER Gender Identity Female 12/26/2018 8:37 PM GIFT SHOP MANAGER Sexual Orientation Choose not to disclose 2020 3:46 PM CDT documented as of this encounter Plan of Treatment Upcoming Encounters Date Type Department Care Team (Latest Contact Info) Description 05/29/2025 11:59 PM CDT Anesthesia Event Division of Gastroenterology in [place], [place] 200 [place] [address] Bri Valenzuela M.D. 200 [place] [address] 06/01/2025 1:15 PM CDT Appointment Division of Gastroenterology in [place], [place] [address] [place] [phone] Lito Pollock P.A.-C. [address] [place] [phone] Jeaneth Núñez M.B.BKatalinaS., M.S. [address] [place] [phone] 06/03/2025 7:30 AM CDT Appointment Department of Laboratory Medicine in [address] [phone] Lito Pollock P.A.-C. [address] [place] [phone] 06/03/2025 10:00 AM CDT Telemedicine [facility] for Transplantation and Clinical Regeneration in [place], [place] [address] [place] [phone] Tessa Jesus, KARON, C.N.P., D.N.P. [address] [place] [phone] 06/10/2025 1:20 PM CDT Nurse Only Section of Infectious Diseases in [place], [place] [address] [place] [phone] Jessica Rousseau M.B.B.S. [address] [place] [phone] 06/15/2025 9:45 AM CDT Appointment Outpatient Procedure Center in [place], [place] [address] [place] [phone] Jessica Rousseau M.B.B.S. [address] [place] [phone] 06/24/2025 12:30 PM CDT Clinical Communication Virtual Review in [place], [place] 200 [place] [address] 06/25/2025 8:10 AM CDT Lab Department of Laboratory Medicine and Pathology, [facility], in [place], [place] [address] [place] [phone] Tessa Jesus APRN, C.N.P., D.N.P. [address] [place] [phone] 06/25/2025 9:00 AM CDT Office Visit [facility]eneration in [place], [place] [address] [place] [phone] Tessa Jesus APRN, C.N.P., D.N.P. [address] [place] [phone] 06/25/2025 9:30 AM CDT Nurse Only [facility] for Transplantation and Clinical Regeneration in [place], [place] [address] [place] [phone] Tessa Jesus APRN, C.N.P., D.N.P. [address] [place] [phone] 06/25/2025 10:30 AM CDT Office Visit [facility] for Transplantation and Clinical Regeneration in [place], [place] [address] [place] [phone] Jessica Rousseau M.B.BKatalinaS. [address] [place] [phone] 06/26/2025 10:00 AM CDT Telemedicine Department of Palliative Care in [place], [place] [address] [place] [phone] Isabel Sellers M.D. [address] [place] [phone] Debbie Shay M.D. [address] [place] [phone] documented as of this encounter Visit Diagnoses Not on filedocumented in this encounter Additional Health Concerns Infection Onset Date Last Indicated Resolved Time Protective Environment 03/02/2023 03/02/2023 Assessment Noted Time PHQ-9 Depression Total Score: 2 12/10/19 25 2:46 PM GIFT SHOP MANAGER documented as of this encounter Care Teams Air Cargo Ground Crew Supervisor Relationship Specialty Start Date End Date Renzo Andres M.D. [address] [place] [phone] PCP - General Family Medicine 04/25/23 documented as of this encounter
--- OUTSIDE RECORDS SUMMARY | 2025-05-31 15:55 | XMS_ITS | Encounter Summary ---
Author Organization [facility] Address [address] [place] [address] Care Team Providers Care Restaurant Manager Name Role Phone Renzo Andres M.D. Primary Care Provider [phone] Reason for Visit * Reason Onset Date Comments After Visit Question 04/18/2025 Chronic fat igue/Leg pain Encounter Details Date Type Department Care Team (Latest Contact Info) Description 04/18/2025 Clinical Communication [facility], Ninth Floor [address] [place] [phone] Jeanne Khan, RKatalinaN. After Visit Question (Chronic fatigue/Leg pain) Social History Tobacco Use Types Packs/Day Years [...] Sex Assigned at Female 12/26/2018 8:37 PM CENTERLESS GRINDER Legal Sex Female 2:43 PM CENTERLESS GRINDER Gender Identity Female 12/26/2018 8:37 PM CENTERLESS GRINDER Sexual Orientation Choose not to disclose 2020 3:46 PM CDT documented as of this encounter Miscellaneous Notes * Telephone Encounter - Jeanne Khan, RKatalinaN. - 04/18/2025 12:24 PM CDT Patient calls to report chronic fatigue and that she slept from 9 PM-9 AM, and fell back asleep until 11 am. Patient reports that she is able to complete ADLs like washing dishes, but its not fun. Patient also reports leg pain that has not gotten better since starting gabapentin. Medications were reviewed. RN educated patient on chronic fatigue and the side effects of chemotherapy. Vickie Hernandez NP was contacted to review case. BIZTALK ARCHITECT reached out to patient separately. No planned follow-up on at this time. documented in this encounter Plan of Treatment Upcoming Encounters Date Type Department Care Team (Latest Contact Info) Description 05/29/2025 11:59 PM CDT Anesthesia Event Division of Gastroenterology in [place], [place] [address] [place] [phone] Bir Valenzuela M.D. [address] [place] [phone] 06/01/2025 1:15 PM CDT Appointment Division of Gastroenterology in [place], [place] [address] [place] [phone] Lito Pollock P.A.-C. [address] [place] [phone] Jeaneth Núñez M.B.B.S., M.S. [address] [place] [phone] 06/03/2025 7:30 AM CDT Appointment Department of Laboratory Medicine in [address] [phone] Lito Pollock P.A.-C. [address] [place] [phone] 06/03/2025 10:00 AM CDT Telemedicine [facility] in [place], [place] [address] [place] [phone] Tessa Jesus, KARON, C.N.P., D.N.P. [address] [place] [phone] 06/10/2025 1:20 PM CDT Nurse Only Section of Infectious Diseases in [place], [place] [address] [place] [phone] Jessica Rousseau M.B.B.S. [address] [place] [phone] 06/15/2025 9:45 AM CDT Appointment Outpatient Procedure Center in [place], [place] [address] [place] [phone] Jessica Rousseau M.B.B.S. [address] [place] [phone] 06/24/2025 12:30 PM CDT Clinical Communication Virtual Review in [place], [place] 200 [place] [address] 06/25/2025 8:10 AM CDT Lab Department of Laboratory Medicine and Pathology, [facility], in [place], [place] [address] [place] [phone] Tessa Jesus APRN, C.N.P., D.N.P. [address] [place] [phone] 06/25/2025 9:00 AM CDT [facility] in [address] [phone] Tessa Jesus APRN, C.N.P., D.N.P. [address] [place] [phone] 06/25/2025 9:30 AM CDT Nurse Only [facility] in [place], [place] [address] [place] [phone] Tessa Jesus APRN, C.N.P., D.N.P. [address] [place] [phone] 06/25/2025 10:30 AM CDT Office Visit Pedro Nazario [facility] for Transplantation and Clinical Regeneration in [place], [place] [address] [place] [phone] Jessica Rousseau M.B.B.S. [address] [place] [phone] 06/26/2025 10:00 AM CDT Telemedicine Department of Palliative Care in [place], [place] [address] [place] [phone] Isabel Sellers M.D. [address] [place] [phone] Debbie Shay M.D. [address] [place] [phone] documented as of this encounter Visit Diagnoses Not on filedocumented in this encounter Additional Health Concerns Infection Onset Date Last Indicated Resolved Time Protective Environment 03/02/2023 03/02/2023 Assessment Noted Time PHQ-9 Depression Total Score: 2 12/10/19 25 2:46 PM CENTERLESS GRINDER documented as of this encounter Care Teams Restaurant Manager Relationship Specialty Start Date End Date Renzo Andres M.D. [address] [place] [address] [place] [phone] PCP - General Family Medicine 04/25/23 documented as of this encounter
--- OUTSIDE RECORDS SUMMARY | 2025-05-31 15:55 | XMS_ITS | Clinical Summary ---
Author Organization [facility] Address [address] [place] [address] Care Team Providers Care Ironer Or Presser Name Role Phone Renzo Andres M.D. Primary Care Provider [phone] Source Comments Patient records contain information from all sites at [facility]. For routine questions regarding patient records, call [phone] during business hours, M-F 8:00 AM - 5:00 PM Central Time. Record requests for emergency care only can be directed to [phone] at any time.[facility] Allergies Active Allergy Reactions Criticality Noted Date Comments Bupropion Edema (Reselect Reaction) 03/01/2017 Grapefruit Other (see comments) 06/28/2021 Drug-drug interaction with Bosulif (bosutinib); This had also been noted w/ prior therapy which patient is no longer taking (Tasigna (nilotinib)). Oxycodone GI intolerance High 01/06/2025 Severe nausea Medications * This document contains information received from the source organization and may not represent a complete record from that organization. cholecalciferol (Vitamin D3) 50 mcg (2,000 Unit) tablet Take 50 mcg by mouth daily. 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 60 tablet 11 04/15/20 25 Active ARIPiprazole (Abilify) 10 mg tablet Take 1 tablet (10 mg total) by mouth daily. 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 60 tablet 04/29/20 25 Active melatonin 5 mg tablet Take 5 mg by mouth at bedtime. 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 60 tablet 1 05/13/20 25 Active HYDROmorphone (Dilaudid) 1 mg/mL liquidIndications: Chronic Pain/Nonacute Pain Take 0.5 mL (0.5 mg total) by mouth daily as needed for pain Indication: Chronic Pain/Nonacute Pain. 10 mL 05/13/20 25 Active loperamide (Imodium A-D) 2 mg capsule Take 1 capsule (2 mg total) by mouth every 2 (two) hours as needed for diarrhea. Take with occurrence of diarrhea. May take up to 16 mg, or 8 doses daily. 05/17/20 25 Active prochlorperazine (Compazine) 10 mg tablet Take 1 tablet (10 mg total) by mouth every 6 (six) hours as needed for nausea. 30 tablet 1 05/20/20 25 Active buprenorphine (Butrans) 5 mcg/hourIndication s:Chronic Pain/Nonacute Pain Place 1 patch on the skin once a week Indication: Chronic Pain/Nonacute Pain. 4 patch 05/25/20 25 Active naloxone (Narcan) 4 mg/actuation nasal spray Administer 1 spray (4 mg total) into nostril(s) once for 1 dose. Use 1 spray in 1 nostril. Repeat with second device in other nostril after 2-3 minutes if no or minimal response. 2 each 05/25/20 25 Active ondansetron ODT (Zofran-ODT) 4 mg disintegrating tablet Dissolve 1-2 tablets (4-8 mg total) in the mouth every 8 (eight) hours as needed for nausea or vomiting. 20 tablet 1 05/27/20 25 Active predniSONE (Deltasone) 10 mg tablet Take 6 tablets (60 mg total) by mouth daily for 3 days, THEN 5 tablets (50 mg total) daily for 5 days. 43 tablet 5 4:28 PM CDT 05/30/20 25 025 Active pantoprazole (Protonix) 40 mg EC tablet Take 1 tablet (40 mg total) by mouth 2 (two) times a day before morning and evening meals. 60 tablet 1 5 4:28 PM CDT 05/29/20 25 Active LORazepam (Ativan) 0.5 mg tablet Take 1 tablet (0.5 mg total) by mouth at bedtime as needed for anxiety. 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 60 tablet 1 04/15/20 25 025 Discontin ued(Reord er) gabapentin (Neurontin) 300 mg capsule Take 1-2 capsules (300-600 mg total) by mouth 2 (two) times a day. 04/29/25: Increase dose to 300 mg in AM and 600 mg at bedtime. 90 capsule 3 04/29/20 25 025 Discontin ued(Stop Taking at Discharge ) HYDROmorphone (Dilaudid) 1 mg/mL liquidIndications: Chronic Pain/Nonacute Pain Take 0.5 mL (0.5 mg total) by mouth daily as needed for pain Indication: Chronic Pain/Nonacute Pain. 10 mL 04/29/20 25 025 Discontin ued(Reord er) Active Problems Patient Care Coordination No te Formatting of [...] series: RSV: MMR: Local Lab/Provider: 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 Reaction Drug Adverse Personal History 4 Leukemia Myeloid Chronic BCR/ABL Positive Remiss ion 06/18/2024 Insulin Resistance, Unspecified 09/20/2022 Eating Disorder 07/07/2022 Anxiety Generalized Disorder 08/14/2019 Chronic Migraine 06/17/2019 Leukemia Myeloid Chronic BCR /ABL 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 Having Achieved Remission 12/11/2018 Cancer Staging:Clinical: Unsigned Adjustment Disorder With Anxious Mood 01/07/2015 Dizziness Depression Major Recurrent Moderate Resolved Problems Problem Noted Date Diagnosed Date [...] Preserv ation Pre Cancer Therapy 12/12/2018 09/17/2019 Encounters Date Type Department Care Team Description 05/31/2025 Clinical Communication [facility], Ninth Floor [address] [place] [phone] Jennyfer Santos R.N. 05/29/2025 Orders Only [facility], Ninth Floor [address] [place] [phone] Lito Pollock P.A.-C. 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 Discharge Disposition: Home or Self Care 05/28/2025 Orders Only [facility], Ninth Floor [address] [place] [address] Giselle Jean R.N. Transplant Stem Cell (HCC) (Primary Dx) 05/27/2025 Orders Only Department of Palliative Care in [place], [place] [address] [place] [phone] Felicia Watt APRN, C.NDustin, M.S.N. 05/26/2025 Clinical Communication [facility] Transplantation and Clinical Regeneration in [place], [place] [address] [place] [phone] Jessica Rousseau M.B.B.SKatalina 05/26/2025 Clinical Communication Section of Infectious Diseases in [place], [place] [address] [place] [phone] Jennifer Marx R.N. Prescreen Immunization Review 05/25/2025 2:00 PM CDT Office Visit Department of Palliative Care in [place], [place] [address] [place] [phone] Felicia Watt APRN, C.NKatalinaPKatalina, M.S.N. Pain Leg Bilateral (Primary Dx); Nausea; Fatigue; Insomnia; Anxiety; Palliative Care 05/25/2025 1:45 PM CDT [facility] in [place], [place] [address] [place] [phone] Ta Medrano 05/20/2025 9:30 AM CDT Office Visit [facility] Transplantation and Clinical Regeneration in [place], [place] [address] [place] [phone] Lito Pollock P.A.-C. Olney, Tammy L, KARON, C.N.P., D.N.P. Lida Olivas, RHelio. 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 Nelli Parker, PharmKatalinaD., R.Ph. Transplant Bone Marrow Allogeneic (HCC) (Primary Dx) Discharge Disposition: Home or Self Care 05/20/2025 Clinical Communication [facility] Transplantation and Clinical Regeneration in [place], [place] [address] [place] [address] Jessica Rousseau M.B.B.S. 06/25 appts 05/17/2025 1:59 PM CDT - 05/17/2025 5:26 PM CDT Hospital Encounter [facility], [facility], Ninth Floor [address] [place] [address] Renita Potts APRN, C.N.P., D.N.P. 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 Lab Monitoring (05/08/2025) 05/08/2025 10:30 AM CDT - 05/08/2025 11:59 PM CDT Hospital Encounter Department of Laboratory Medicine in [place] [address] [place] [address] Lito Pollock P.A.-C. 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 Nurse Assessment (Nausea/Vomiting ) 04/29/2025 10:00 AM CDT Office Visit [facility] Transplantation and Clinical Regeneration in [place], [place] [address] [place] [phone] Becky Hernandez APRN, C.N.P., D.N.P. Lito Pollock P.A.-C. 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 Nelli Parker, Pharm.D., R.Ph. 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 Scheduling 04/27/2025 Specialty Pharmacy [facility] [id number] [place] [phone] Isabel Bautista, Pharm.D., R.Ph. 04/22/2025 10:00 AM CDT Telemedicine Pedro sanchez [facility] Transplantation and Clinical Regeneration in [place], [place] [address] [place] [phone] Becky Hernandez APRN, C.N.P., D.N.P. Analia Carter APRN, C.N.P. 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 04/18/2025 Orders Only [facility] Transplantation and Clinical Regeneration in [place], [place] [address] [place] [address] Becky Hernandez APRN, C.N.PKatalina, D.N.P. Transplant Stem Cell (HCC) (Primary Dx) 04/18/2025 Clinical Communication [facility], [facility], Ninth Floor [address] [place] [address] Jeanne Khan R.N. After Visit Question (Chronic fatigue/Leg pain) 04/18/2025 Orders Only [facility], [facility], Ninth Floor [address] [place] [address] Becky Hernandez APRN, C.N.P., D.N.P. 04/15/2025 9:00 AM CDT Telemedicine [facility] Transplantation and Clinical Regeneration in [place], [place] [address] [place] [address] Becky Hernandez APRN, C.N.P., D.N.P. 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 Med Refill 04/14/2025 Refill Division of Hematology in [place], [place] [address] [place] [address] Jessica Rousseau M.B.B.S. Med Refill 04/08/2025 11:30 AM CDT Office Visit [facility] Clinical Regeneration in [place], [place] [address] [place] [address] Jessica Rousseau M.B.B.S. Becky Hernandez APRN C.N.P., D.N.P. Tara Marin, R.N., BMT-CN Karen Allen R.N., O.C.N. 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 Bone Marrow Transplant Status (HCC) (Primary Dx); Transplant Stem Cell (HCC); Transplant Bone Marrow Allogeneic (HCC) 04/07/2025 Clinical Communication [facility] Transplantation and Clinical Regeneration in [place], [place] [address] [place] [phone] Tammy Wild R.N. Pain 04/01/2025 Clinical Communication [facility] Transplantation and Clinical Regeneration in [place], [place] [address] [place] [phone] Lucy Stout, R.N., BMT-CN, O.C.N. Nurse Assessment 04/01/2025 Clinical Communication [facility] Transplantation and Clinical Regeneration in [place], [place] [address] [place] [phone] Jessica Rousseau M.B.B.S. Phone Contact 03/30/2025 9:40 AM CDT Education Section of Infectious Diseases in [address] [phone] Jessica Rousseau M.B.B.SAdore Harper, R.N. 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 Transplant Stem Cell (HCC) (Primary Dx) 03/24/2025 9:30 AM CDT Office Visit [facility] Transplantation and Clinical Regeneration in [place], [place] [address] [place] [address] Jessica Rousseau M.B.B.S. Elise Pizarro, R.N. 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 03/24/2025 [facility] in [place], [place] [address] [place] [phone] Ta Medrano 03/24/2025 Refill [facility] Transplantation and Clinical Regeneration in [place], [place] [address] [place] [address] Jessica Rousseau M.B.B.S. Med Refill 03/23/2025 2:00 PM CDT Virtual Visit [facility] Transplantation and Clinical Regeneration in [place], [place] [address] [place] [phone] Jessica Rousseau M.B.B.S. Sis Miller M.S.Vivi., L.I.C.S.W. 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 Communication (D100 Reschedule) 03/20/2025 10:25 AM CDT - 03/20/2025 11:59 PM CDT Hospital Encounter Department of Radiology, [facility], in [place], [place] [address] [place] [address] Jessica Rousseau M.B.B.S. 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 Lucy Stout, R.N., BMT-CN, O.C.N. 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 Phone Contact (Reschedule) 03/10/2025 1:00 PM CDT - 03/10/2025 11:59 PM CDT Hospital Encounter [facility] [address] [place] [address] Jaleel Loera APRN, C.N.P., M.S.N. 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 Becky Hernandez APRN, C.N.P., D.N.P. 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 Transplant Bone Marrow Allogeneic (HCC) (Primary Dx) 03/09/2025 Orders Only [facility] Transplantation and Clinical Regeneration in [place], [place] [address] [place] [phone] Sis De Anda Aftercare Transplant Other Organ (Primary Dx) 03/09/2025 Clinical Communication [facility] Trans[facility] and Clinical Regeneration in [place], [place] [address] [place] [phone] Jessica Rousseau M.B.B.S. Phone Contact (Line Removal?) 03/03/2025 4:00 PM CDT Infusion Department of Infusion Therapy in [place], [place] [address] [place] [address] Jessica Rousseau M.B.B.S. 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 Kayleen Rivas, RFritz 03/03/2025 9:45 AM CDT Infusion Department of Infusion Therapy in [address] [phone] Tiffani Leroy APRN, C.N.P., D.N.P. 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 Communication (Over Ride ) 03/03/2025 [facility] in [place], [place] [address] [place] [phone] Ta Medrano 03/02/2025 Results Follow-Up [facility] Transplantation and Clinical Regeneration in [place], [place] [address] [place] [phone] Jessica Rousseau M.B.B.S. Hematologic Specified FISH from Last 3 Months Immunizations Immunization Administration Dates Next Due 4vHPV (discontinued) 11/08/2007,06/27/2007,04/26 HZV (ZOSTAVAX) 08/09/2023(Deferred: Patient ill today) HepB Adult 03/07/2001,10/31/2000,09/19/2000 Influenza TIV (IM) 09/02/2012, 1,10/19/2003,2001,01/22/2002 Influenza, Seasonal, Injectable 10/19/2003,09/17,01/22/2002 Influenza, Unspecified 09/02/2012,08/14/2011 MCV4 (Menactra)(Discontinued) 04/26/2007 MMR 04/25/2001,03/07/2001 SARS-COV-2 (COVID-19) - MODERNA(Discontinued) 10/31/2021,03/30/2021,03/02/2021 Td (Adult), adsorbed 07/10/2003 Tdap 09/02/2012 influenza vaccine quad (FLUZONE/FLUARIX) (6 months and older)(PF) 09/26/2019 Family History Medical History Relation Name Comments Cystic fibrosis Brother 1 Anxiety disorder Brother 2 shena martinez Depression Brother 2 shena martinez Psychiatric Maternal Grandfather silvia mogren Breast cancer Maternal Grandmother nancy Psychiatric Maternal Grandmother nancy Anxiety disorder Mother gabrielle martinez Depression Mother gabrielle martinez Hypertension Mother gabrielle martinez Skin cancer Paternal Grandfather Grandsuzie vega No Known Problems Son Rashid Relation Name Status Comments Brother 1 Brother 2 shena martinez Father in MVA Maternal Grandfather silvia merchant Maternal Grandmother nancy Mother gabrielle martinez Alive Paternal Grandfather Berkley vega Son Rashid Alive Social History Tobacco Use Types Packs/Day Years Used Date Smoking Tobacco: Never Smokeless Tobacco: Never Tobacco Cessation:Counseling Given: Not Answered Alcohol Use Standard Drinks/Week Comments Yes 0 (1 standard drink = 0.6 oz pur e alcohol) social [facility] Utilities Answer Date Recorded In the past 12 months has e The Filter, gas, oil, or water [employer] threatened to shut off services in your [...] your living situation today? I have a [facility] to live 05/28/2025 Education Answer Date Recorded What is the highest level of school you have completed or the highest degree you have received? 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 [address] [place] [address] [phone] 06/01/2025 1:15 PM CDT Appointment Division of Gastroenterology in [place], [place] [address] [place] [phone] Lito Pollock P.A.-C. [address] [place] [address] [phone] Jeaneth Núñez M.B.BKatalinaS., M.S. [address] [place] [phone] 06/03/2025 7:30 AM CDT Appointment Department of Laboratory Medicine in [place], [place] [address] [place] [phone] Lito Pollock P.A.-C. [address] [place] [phone] 06/03/2025 10:00 AM CDT Telemedicine [facility] in [place], [place] [address] [place] [phone] Tessa Jesus APRN, C.N.P., D.N.P. [address] [place] [phone] 06/10/2025 1:20 PM CDT Nurse Only Section of Infectious Diseases in [place], [place] [address] [place] [phone] Jessica Rousseau M.B.B.S. [address] [place] [phone] 06/15/2025 9:45 AM CDT Appointment Outpatient Procedure Center in [place], [place] [address] [place] [phone] Jessica Rousseau M.B.B.S. [address] [place] [phone] 06/24/2025 12:30 PM CDT Clinical Communication Virtual Review in [place], [place] 200 [place] [phone] 06/25/2025 8:10 AM CDT Lab Department of Laboratory Medicine and Pathology, [facility], in [place], [place] [address] [place] [phone] Tessa Jesus APRN, C.N.P., D.N.P. [address] [place] [phone] 06/25/2025 9:00 AM CDT [facility] in [place], [place] [address] [place] [phone] Tessa Jesus APRN, C.N.P., D.N.P. [address] [place] [address] [phone] 06/25/2025 9:30 AM CDT Nurse Only [facility] Transplantation and Clinical Regeneration in [place], [place] [address] [place] [address] [phone] Tessa Jesus APRN, C.N.P., D.N.P. [address] [place] [phone] 06/25/2025 10:30 AM CDT Office Visit [facility] Transplantation and Clinical Regeneration in [place], [place] [address] [place] [phone] Jessica Rousseau M.B.B.S. [address] [place] [address] [phone] 06/26/2025 10:00 AM CDT Telemedicine Department of Palliative Care in [address] [phone] Isabel Sellers M.D. [address] [place] [phone] Debbie Shay M.D. [address] [place] [phone] Health Maintenance Due Date Last Done Comments Visit: Medicare Annual Wellness 1990 COVID-19 Vaccine (2023-2 5 season) 2024 10/31/2021, 03/30/2021, 03/02/2021 Cervical/Vaginal Cancer Screening 10/15/2024 10/15/2019, 10/15/2019, 11/25/2013 Depression Monitoring (PHQ-9 for quality tracking) 11/19/2024 Controlled Substance Agreement 04/05/2025 Controlled Substance Monitor ing (UDS) 04/05/2025 PEG assessment for Opioid therapy 04/05/2025 Depression Monitoring (PHQ-9) 04/09/2025 12/10/2024 Influenza Vaccine (#1) 2025 9, 09/02/2012, 09/02/2012, Additional history exists Controlled Substance Monitor ing (PHQ-9) 12/10/2025 12/10/2024 Generalized Anxiety (HERMINIO-7) 03/23/2026 03/23/2025 Spirometry with DLCO or PFT 03/23/2026 03/23/2025, 1 01/06/2024 Lipid (Cholesterol) Screening 03/24/2026, 06/23/2024, 09/08/2022 Vitamin D Testing 03/24/2026 03/24/2025, , 03/13/2022 Fasting Glucose for Diabetes Screening 05/29/2026 05/29/2025, 05/28/2025, 05/20/2025, Additional history exists Hepatitis B Screening Discontinued 12/12/2018 Hepatitis C Screening Completed 12/12/2018 Opioid Risk Tool (ORT) Completed 04/21/2025 Glucose Test for Med Monitoring Discontinued 05/29/2025, 05/28/2025, 05/20/2025, Additional history exists Procedures Procedure Name Priority Date/Time Associated Diagnosis Comments BASIC METABOLIC PANEL, S/P Routine 05/29/2025 5:18 AM CDT CBC WITH DIFFERENTIAL, B Routine 05/29/2025 5:18 AM CDT LACTATE, B/P STAT 05/28/2025 8:[address] ABDOMEN PELVIS WITH IV CONTRAST RAD - Routine (most inpatients and all outpatients) 05/28/2025 5:44 PM CDT PHOSPHORUS (INORGANIC), S Timed 05/28/2025 4:31 PM CDT MAGNESIUM, S Timed 05/28/2025 4:31 PM CDT COMPREHENSIVE METABOLIC PANEL, S/P Timed 05/28/2025 4:31 PM CDT CBC NO CALL BACK, REFLEX T/S Timed 05/28/2025 4:31 PM CDT LACTATE DEHYDROGENASE (LD), S Routine 05/20/2025 8:48 AM CDT 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) Transplant Stem Cell (HCC) SODIUM, S/P Routine 05/20/2025 8:48 AM CDT 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) Transplant Stem Cell (HCC) POTASSIUM, S/P Routine 05/20/2025 8:48 AM CDT 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) Transplant Stem Cell (HCC) MAGNESIUM, S Routine 05/20/2025 8:48 AM CDT 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) Transplant Stem Cell (HCC) GLUCOSE, FASTING, S/P Routine 05/20/2025 8:48 AM CDT 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) Transplant Stem Cell (HCC) Follow Up Examination Following Bone Marrow Transplant CREATININE WITH EGFR, S/P Routine 05/20/2025 8:48 AM CDT 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) Transplant Stem Cell (HCC) CBC NO CALL BACK, REFLEX T/S Routine 05/20/2025 8:48 AM CDT 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) Transplant Stem Cell (HCC) CALCIUM, TOT, S/P Routine 05/20/2025 8:4 8 AM CDT 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) Transplant Stem Cell (HCC) BUN (BLOOD UREA NITROGEN), S/P Routine 05/20/2025 8:48 AM CDT 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) Transplant Stem Cell (HCC) BILIRUBIN, TOT, S/P Routine 05/20/2025 8 :48 AM CDT 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) Transplant Stem Cell (HCC) ASPARTATE AMINOTRANSFERASE (AST), S/P Routine 05/20/2025 8:48 AM CDT 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) Transplant Stem Cell (HCC) ALANINE AMINOTRANSFERASE (ALT), S/P Routine 05/20/2025 8:48 AM CDT 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) Transplant Stem Cell (HCC) ALKALINE PHOSPHATASE, S/P Routine 05/20/2025 8:48 AM CDT 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) Transplant Stem Cell (HCC) ALBUMIN, S/P Routine 05/20/2025 8:48 AM CDT 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) Transplant Stem Cell (HCC) BILIRUBIN, TOT, S/P Routine 05/08/2025 12:35 PM CDT Leukemia [...] Achieved Remission (HCC) Transplant Stem Cell (HCC) CMV DNA DETECT/QUANT, P Routine 05/08/2025 12:35 PM CDT 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) Transplant Stem Cell (HCC) BCR/ABL1, P210, QUANT, MONITOR Routine 04/29/2025 9:42 AM CDT 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) Abnormal Finding Of Blood Chemistry Unspecified Follow Up Examination Following Bone Marrow Transplant Corticosteroid Treatment Jail Systemic CD4 T-CELL COUNT, B Routine 04/29/2025 9 :42 AM CDT 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) Abnormal Finding Of Blood Chemistry Unspecified Follow Up Examination Following Bone Marrow Transplant Corticosteroid Treatment Jail Systemic CHIMERISM TRANSPLANT SORTED CELLS Routine 04/29/2025 9:42 AM CDT 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) Abnormal Finding Of Blood Chemistry Unspecified Follow Up Examination Following Bone Marrow Transplant Corticosteroid Treatment Rolloff Driver Systemic CMV DNA DETECT/QUANT, P Routine 04/29/2025 9:42 AM CDT Transplant Stem Cell ([facility]) LACTATE DEHYDROGENASE (LD), S Routine 04/29/2025 9:41 AM CDT Transplant Stem Cell ([facility]) SODIUM, S/P Routine 04/29/2025 9:41 AM CDT Transplant Stem Cell ([facility]) POTASSIUM, S/P Routine 04/29/2025 9:41 AM CDT Transplant Stem Cell ([facility]) MAGNESIUM, S Routine 04/29/2025 9:41 AM CDT Transplant Stem Cell ([facility]) GLUCOSE, FASTING, S/P Routine 04/29/2025 9:41 AM CDT Transplant Stem Cell ([facility]) Hyperglycemia CREATININE WITH EGFR, S/P Routine 04/29/2025 9:41 AM CDT Transplant Stem Cell ([facility]) CBC NO CALL BACK, REFLEX T/S Routine 04/29/2025 9:41 AM CDT Transplant Stem Cell ([facility]) CALCIUM, TOT, S/P Routine 04/29/2025 9:4 1 AM CDT Transplant Stem Cell (HCC) BUN (BLOOD UREA NITROGEN), S/P Routine 04/29/2025 9:41 AM CDT Transplant Stem Cell (HCC) BILIRUBIN, TOT, S/P Routine 04/29/2025 9 :41 AM CDT Transplant Stem Cell (HCC) ASPARTATE AMINOTRANSFERASE (AST), S/P Routine 04/29/2025 9:41 AM CDT Transplant Stem Cell (HCC) ALANINE AMINOTRANSFERASE (ALT), S/P Routine 04/29/2025 9:41 AM CDT Transplant Stem Cell (HCC) ALKALINE PHOSPHATASE, S/P Routine 04/29/2025 9:41 AM CDT Transplant Stem Cell (HCC) ALBUMIN, S/P Routine 04/29/2025 9:41 AM CDT Transplant Stem Cell (HCC) MAGNESIUM, S Routine 04/20/2025 10:02 AM CDT Transplant Stem Cell (HCC) Hyperglycemia 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) Transplant Bone Marrow Allogeneic (HCC) COMPREHENSIVE METABOLIC PANEL, S/P Routine 04/20/2025 10:02 AM CDT Transplant Stem Cell (HCC) Hyperglycemia 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) Transplant Bone Marrow Allogeneic (HCC) CBC WITH DIFFERENTIAL, B Routine 04/20/2025 10:02 AM CDT Transplant Stem Cell (HCC) Hyperglycemia 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) Transplant Bone Marrow Allogeneic (HCC) LACTATE DEHYDROGENASE (LD), S Routine 04/08/2025 11:10 AM CDT 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) Abnormal Finding Of Blood Chemistry Unspecified Follow Up Examination Following Bone Marrow Transplant Corticosteroid Treatment Jail Systemic SODIUM, S/P Routine 04/08/2025 11:10 AM CDT 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) Abnormal Finding Of Blood Chemistry Unspecified Follow Up Examination Following Bone Marrow Transplant Corticosteroid Treatment Jail Systemic POTASSIUM, S/P Routine 04/08/2025 11:10 AM CDT 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) Abnormal Finding Of Blood Chemistry Unspecified Follow Up Examination Following Bone Marrow Transplant Corticosteroid Treatment Jail Systemic MAGNESIUM, S Routine 04/08/2025 11:10 AM CDT 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) Abnormal Finding Of Blood Chemistry Unspecified Follow Up Examination Following Bone Marrow Transplant Corticosteroid Treatment Rolloff Driver Systemic GLUCOSE, FASTING, S/P Routine 04/08/2025 11:10 AM CDT 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) Abnormal Finding Of Blood Chemistry Unspecified Follow Up Examination Following Bone Marrow Transplant Corticosteroid Treatment Rolloff Driver Systemic CREATININE WITH EGFR, S/P Routine 04/08/2025 11:10 AM CDT 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) Abnormal Finding Of Blood Chemistry Unspecified Follow Up Examination Following Bone Marrow Transplant Corticosteroid Treatment Rolloff Driver Systemic CBC NO CALL BACK, REFLEX T/S Routine 04/08/2025 11:10 AM CDT 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) Abnormal Finding Of Blood Chemistry Unspecified Follow Up Examination Following Bone Marrow Transplant Corticosteroid Treatment Jail Systemic CALCIUM, TOT, S/P Routine 04/08/2025 11:10 AM CDT 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) Abnormal Finding Of Blood Chemistry Unspecified Follow Up Examination Following Bone Marrow Transplant Corticosteroid Treatment Rolloff Driver Systemic BUN (BLOOD UREA NITROGEN), S/P Routine 04/08/2025 11:10 AM CDT 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) Abnormal Finding Of Blood Chemistry Unspecified Follow Up Examination Following Bone Marrow Transplant Corticosteroid Treatment Jail Systemic BILIRUBIN, TOT, S/P Routine 04/08/2025 11:10 AM CDT 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) Abnormal Finding Of Blood Chemistry Unspecified Follow Up Examination Following Bone Marrow Transplant Corticosteroid Treatment Jail Systemic ASPARTATE AMINOTRANSFERASE (AST), S/P Routine 04/08/2025 11:10 AM CDT 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) Abnormal Finding Of Blood Chemistry Unspecified Follow Up Examination Following Bone Marrow Transplant Corticosteroid Treatment Rolloff Driver Systemic ALANINE AMINOTRANSFERASE (ALT), S/P Routine 04/08/2025 11:10 AM CDT 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) Abnormal Finding Of Blood Chemistry Unspecified Follow Up Examination Following Bone Marrow Transplant Corticosteroid Treatment Rolloff Driver Systemic ALKALINE PHOSPHATASE, S/P Routine 04/08/2025 11:10 AM CDT 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) Abnormal Finding Of Blood Chemistry Unspecified Follow Up Examination Following Bone Marrow Transplant Corticosteroid Treatment Jail Systemic ALBUMIN, S/P Routine 04/08/2025 11:10 AM CDT 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) Abnormal Finding Of Blood Chemistry Unspecified Follow Up Examination Following Bone Marrow Transplant Corticosteroid Treatment Rolloff Driver Systemic CMV DNA DETECT/QUANT, P Routine 04/08/2025 11:10 AM CDT 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) Abnormal Finding Of Blood Chemistry Unspecified Follow Up Examination Following Bone Marrow Transplant Corticosteroid Treatment Jail Systemic HEMOGLOBIN A1C, B Routine 03/24/2025 9:3 0 AM CDT 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) Abnormal Finding Of Blood Chemistry Unspecified Follow Up Examination Following Bone Marrow Transplant CBC NO CALL BACK, REFLEX T/S Routine 03/24/2025 9:30 AM CDT 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) BILIRUBIN, TOT, S/P Routine 03/24/2025 9 :30 AM CDT 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) ASPARTATE AMINOTRANSFERASE (AST), S/P Routine 03/24/2025 9:30 AM CDT 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) IMMUNOGLOBULINS (IGG, IGA, AND IGM), S Routine 03/24/2025 9:30 AM CDT 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) EBV DNA DETECT/QUANT, P Routine 03/24/2025 9:30 AM CDT 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) LACTATE DEHYDROGENASE (LD), S Routine 03/24/2025 9:29 AM CDT 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) SODIUM, S/P Routine 03/24/2025 9:29 AM CDT 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) POTASSIUM, S/P Routine 03/24/2025 9:29 AM CDT 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) MAGNESIUM, S Routine 03/24/2025 9:29 AM CDT 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) GLUCOSE, FASTING, S/P Routine 03/24/2025 9:29 AM CDT 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) Abnormal Finding Of Blood Chemistry Unspecified Follow Up Examination Following Bone Marrow Transplant CREATININE WITH EGFR, S/P Routine 03/24/2025 9:29 AM CDT 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) CALCIUM, TOT, S/P Routine 03/24/2025 9:2 9 AM CDT 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) BUN (BLOOD UREA NITROGEN), S/P Routine 03/24/2025 9:29 AM CDT 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) ALANINE AMINOTRANSFERASE (ALT), S/P Routine 03/24/2025 9:29 AM CDT 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) ALKALINE PHOSPHATASE, S/P Routine 03/24/2025 9:29 AM CDT 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) ALBUMIN, S/P Routine 03/24/2025 9:29 AM CDT 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) 25-HYDROXYVITAMIN D2 AND D3, S Routine 03/24/2025 9:29 AM CDT 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) Abnormal Finding Of Blood Chemistry Unspecified Follow Up Examination Following Bone Marrow Transplant Corticosteroid Treatment Rolloff Driver Systemic THYROID FUNCTION CASCADE, S Routine 03/24/2025 9:29 AM CDT 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) Abnormal Finding Of Blood Chemistry Unspecified Follow Up Examination Following Bone Marrow Transplant LIPID PANEL, S Routine 03/24/2025 9:29 AM CDT 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) Abnormal Finding Of Blood Chemistry Unspecified Follow Up Examination Following Bone Marrow Transplant FERRITIN, S Routine 03/24/2025 9:29 AM CDT 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) CMV DNA DETECT/QUANT, P Routine 03/24/2025 9:29 AM CDT 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) PULMONARY FUNCTION TESTS Routine 03/23/2025 9:48 AM CDT 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) Transplant Bone Marrow Allogeneic (HCC) Abnormal Finding Of Blood Chemistry Unspecified Encounter Admission For Chemotherapy BMD BONE DENSITY SPINE HIPS RAD - Routine (most inpatients and all outpatients) 03/20/2025 11:02 AM CDT 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) Transplant Bone Marrow Allogeneic (HCC) Abnormal Finding Of Blood Chemistry Unspecified Encounter Admission For Chemotherapy LACTATE DEHYDROGENASE (LD), S Routine 03/18/2025 12:52 PM CDT 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) SODIUM, S/P Routine 03/18/2025 12:52 PM CDT 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) POTASSIUM, S/P Routine 03/18/2025 12:52 PM CDT 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) MAGNESIUM, S Routine 03/18/2025 12:52 PM CDT 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) GLUCOSE, FASTING, S/P Routine 03/18/2025 12:52 PM CDT 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) Hyperglycemia CREATININE WITH EGFR, S/P Routine 03/18/2025 12:52 PM CDT 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) CBC NO CALL BACK, REFLEX T/S Routine 03/18/2025 12:52 PM CDT 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) CALCIUM, TOT, S/P Routine 03/18/2025 12:52 PM CDT 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) BUN (BLOOD UREA NITROGEN), S/P Routine 03/18/2025 12:52 PM CDT 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) BILIRUBIN, TOT, S/P Routine 03/18/2025 12:52 PM CDT 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) ASPARTATE AMINOTRANSFERASE (AST), S/P Routine 03/18/2025 12:52 PM CDT 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) ALANINE AMINOTRANSFERASE (ALT), S/P Routine 03/18/2025 12:52 PM CDT 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) ALKALINE PHOSPHATASE, S/P Routine 03/18/2025 12:52 PM CDT 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) ALBUMIN, S/P Routine 03/18/2025 12:52 PM CDT 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) EBV DNA DETECT/QUANT, P Routine 03/18/2025 12:52 PM CDT 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) CMV DNA DETECT/QUANT, P Routine 03/18/2025 12:52 PM CDT 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) TXP LINE D/C Routine 03/10/2025 1:00 PM CDT 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) [facility] Rout[facility] 10:12 AM CDT Aftercare Transplant Other Organ EBV DNA DETECT/QUANT, P Routine 03/10/2025 10:12 AM CDT 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) Transplant Bone Marrow Allogeneic (HCC) Abnormal Finding Of Blood Chemistry Unspecified Encounter Admission For Chemotherapy PROTHROMBIN TIME (PT), P Routine 03/10/2025 10:11 AM CDT Transplant Bone Marrow Allogeneic (HCC) CHIMERISM TRANSPLANT SORTED CELLS Routine 03/10/2025 10:11 AM CDT 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) LACTATE DEHYDROGENASE (LD), S Routine 03/10/2025 10:11 AM CDT 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) Transplant Bone Marrow Allogeneic (HCC) Abnormal Finding Of Blood Chemistry Unspecified Encounter Admission For Chemotherapy SODIUM, S/P Routine 03/10/2025 10:11 AM CDT 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) Transplant Bone Marrow Allogeneic (HCC) Abnormal Finding Of Blood Chemistry Unspecified Encounter Admission For Chemotherapy POTASSIUM, S/P Routine 03/10/2025 10:11 AM CDT 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) Transplant Bone Marrow Allogeneic (HCC) Abnormal Finding Of Blood Chemistry Unspecified Encounter Admission For Chemotherapy MAGNESIUM, S Routine 03/10/2025 10:11 AM CDT 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) Transplant Bone Marrow Allogeneic (HCC) Abnormal Finding Of Blood Chemistry Unspecified Encounter Admission For Chemotherapy GLUCOSE, FASTING, S/P Routine 03/10/2025 10:11 AM CDT 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) Transplant Bone Marrow Allogeneic (HCC) Abnormal Finding Of Blood Chemistry Unspecified Encounter Admission For Chemotherapy CREATININE WITH EGFR, S/P Routine 03/10/2025 10:11 AM CDT 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) Transplant Bone Marrow Allogeneic (HCC) Abnormal Finding Of Blood Chemistry Unspecified Encounter Admission For Chemotherapy CBC NO CALL BACK, REFLEX T/S Routine 03/10/2025 10:11 AM CDT 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) Transplant Bone Marrow Allogeneic (HCC) Abnormal Finding Of Blood Chemistry Unspecified Encounter Admission For Chemotherapy CALCIUM, TOT, S/P Routine 03/10/2025 10:11 AM CDT 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) Transplant Bone Marrow Allogeneic (HCC) Abnormal Finding Of Blood Chemistry Unspecified Encounter Admission For Chemotherapy BUN (BLOOD UREA NITROGEN), S/P Routine 03/10/2025 10:11 AM CDT 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) Transplant Bone Marrow Allogeneic (HCC) Abnormal Finding Of Blood Chemistry Unspecified Encounter Admission For Chemotherapy BILIRUBIN, TOT, S/P Routine 03/10/2025 10:11 AM CDT 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) Transplant Bone Marrow Allogeneic (HCC) Abnormal Finding Of Blood Chemistry Unspecified Encounter Admission For Chemotherapy ASPARTATE AMINOTRANSFERASE (AST), S/P Routine 03/10/2025 10:11 AM CDT 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) Transplant Bone Marrow Allogeneic (HCC) Abnormal Finding Of Blood Chemistry Unspecified Encounter Admission For Chemotherapy ALANINE AMINOTRANSFERASE (ALT), S/P Routine 03/10/2025 10:11 AM CDT 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) Transplant Bone Marrow Allogeneic (HCC) Abnormal Finding Of Blood Chemistry Unspecified Encounter Admission For Chemotherapy ALKALINE PHOSPHATASE, S/P Routine 03/10/2025 10:11 AM CDT 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) Transplant Bone Marrow Allogeneic (HCC) Abnormal Finding Of Blood Chemistry Unspecified Encounter Admission For Chemotherapy ALBUMIN, S/P Routine 03/10/2025 10:11 AM CDT 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) Transplant Bone Marrow Allogeneic (HCC) Abnormal Finding Of Blood Chemistry Unspecified Encounter Admission For Chemotherapy CMV DNA DETECT/QUANT, P Routine 03/10/2025 10:11 AM CDT 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) Transplant Bone Marrow Allogeneic (HCC) Abnormal Finding Of Blood Chemistry Unspecified Encounter Admission For Chemotherapy TACROLIMUS LEVEL, B Routine 03/03/2025 9 :15 AM CDT 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) Transplant Bone Marrow Allogeneic (HCC) LACTATE DEHYDROGENASE (LD), S Routine 03/03/2025 9:15 AM CDT 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) Transplant Bone Marrow Allogeneic (HCC) SODIUM, S/P Routine 03/03/2025 9:15 AM CDT 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) Transplant Bone Marrow Allogeneic (HCC) POTASSIUM, S/P Routine 03/03/2025 9:15 AM CDT 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) Transplant Bone Marrow Allogeneic (HCC) MAGNESIUM, S Routine 03/03/2025 9:15 AM CDT 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) Transplant Bone Marrow Allogeneic (HCC) GLUCOSE, FASTING, S/P Routine 03/03/2025 9:15 AM CDT 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) Transplant Bone Marrow Allogeneic (HCC) CREATININE WITH EGFR, S/P Routine 03/03/2025 9:15 AM CDT 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) Transplant Bone Marrow Allogeneic (HCC) CBC NO CALL BACK, REFLEX T/S Routine 03/03/2025 9:15 AM CDT 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) Transplant Bone Marrow Allogeneic (HCC) CALCIUM, TOT, S/P Routine 03/03/2025 9:1 5 AM CDT 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) Transplant Bone Marrow Allogeneic (HCC) BUN (BLOOD UREA NITROGEN), S/P Routine 03/03/2025 9:15 AM CDT 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) Transplant Bone Marrow Allogeneic (HCC) BILIRUBIN, TOT, S/P Routine 03/03/2025 9 :15 AM CDT 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) Transplant Bone Marrow Allogeneic (HCC) ASPARTATE AMINOTRANSFERASE (AST), S/P Routine 03/03/2025 9:15 AM CDT 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) Transplant Bone Marrow Allogeneic (HCC) ALANINE AMINOTRANSFERASE (ALT), S/P Routine 03/03/2025 9:15 AM CDT 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) Transplant Bone Marrow Allogeneic (HCC) ALKALINE PHOSPHATASE, S/P Routine 03/03/2025 9:15 AM CDT 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) Transplant Bone Marrow Allogeneic (HCC) ALBUMIN, S/P Routine 03/03/2025 9:15 AM CDT 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) Transplant Bone Marrow Allogeneic (HCC) EBV DNA DETECT/QUANT, P Routine 03/03/2025 9:15 AM CDT 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) Transplant Bone Marrow Allogeneic (HCC) CMV DNA DETECT/QUANT, P Routine 03/03/2025 9:15 AM CDT 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 Hemoglobin 12.4 11.6 - 15.0 g/dL 05/29/2025 [...] M.P.H. LAB BLOOD [place] [address], [facility] DTL [facility] [address] [place] [address] * (ABNORMAL) Basic Metabolic Panel (05/29/2025 5:18 AM CDT) [facility] Potassium, S 4.9 3.6 - 5.2 mmol/L [...] M.P.H. LAB BLOOD ADD-ON F inal Result [address] [place] [address] * Lactate (05/28/2025 8:59 PM CDT) Lactate, P 1.8 0.5 - 2.2 mmol/L 05/28/2025 9:54 PM CDT DTL Blood (Blood, Venous) 05/28/2025 8:59 PM CDT 05/28/2025 9:21 PM CDT us Crista Jay M.D., M.P.H. LAB BLOOD NON ADD- ON Final Result [facility] [address] [place] [address] * CT Abdomen Pelvis with IV Contrast [...] change since11/03/2024. Renita Potts APRN, C.N.P., D.N.P. [facility] CT PROC EDURES Final Result * CBC no call back, reflex T/S HGB <8 (05/28/2025 4:31 PM CDT) Only the most recent of9 resultswithin the time period is included. Hemoglobin 12.6 11.6 - 15.0 g/dL 05/28/2025 [...] LAB BLOOD N ON ADD-ON Final Result [facility] [address] [place] [address], [facility] DTL [facility] [address] [place] [address] [facility] [address] [place] [address] * Phosphorus Inorganic (05/28/2025 4:31 PM CDT) Phosphorus (Inorganic), S 4.4 2.5 - 4.5 mg/dL 05/28/2025 7:46 PM CDT DTL Blood (Blood, Venous) 05/28/2025 4:31 PM CDT 05/28/2025 4:43 PM CDT Renita Potts APRN, C.N.P., D.N.P. LAB BLOOD A DD-ON Final Result Performing Organization Address City/[facility]/ZIP Co de Phone Number [facility] [address] [place] [address] * Magnesium (05/28/2025 4:31 PM CDT) Only the most recent of11 resultswithin the time period is included. [facility] Magnesium, S 2.2 1.7 - 2.3 mg/dL 05/28/2025 7:46 PM CDT DTL Blood (Blood, Venous) 05/28/2025 4:31 PM CDT 05/28/2025 4:43 PM CDT Renita Potts APRN, C.N.P., D.N.P. LAB BLOOD A DD-ON Final Result [facility] [address] [place] [address], [place] [address] * (ABNORMAL) Comprehensive Metabolic Panel (05/28/2025 4:31 PM CDT) Only the most recent of3 resultswithin the time period is included. Potassium, S 4.3 3.6 - 5.2 mmol/L [...] 4:43 PM CDT Renita Potts APRN, C.N.P., Isak LAB BLOOD A DD-ON Final Result Performing Organization Address City/[facility] Co de Phone Number [facility] [address] [place] [address], [facility] DTL [facility] [address] [place] [address] * CMV DNA Detect / Quant, Plasma (05/20/2025 8:48 AM CDT) Only the most recent of8 resultswithin the time period is included. Pathologist [facility] CMV DNA Detect/Quant, P Undetected Undetected IU/mL 05/20/2025 9:17 PM CDT [facility] Comment: Result in log IU/mL is Undetected. ----ADDITIONAL INFORMATION---- The quantification range of this assay is 35 to 10,000,000 IU/mL (1.54 log to 7.00 log IU/mL). Testing was performed using the lucrecia CMV test ([employer] Blood (Blood, Venous) 05/20/2025 8:48 AM CDT 05/20/2025 11:04 AM CDT Lito Pollock P.A.-C. LAB MICROBIOLOGY - BLOOD ORDER JANES Final Result Performing Organization Address [facility] Co de Phone Number [facility] [address] [place] [address] [facility] [address] [place] [address] [place] [address] * BUN (Blood Urea Nitrogen) (05/20/2025 8:48 AM CDT) Only the most recent of8 resultswithin the time period is included. Pathologist [facility] BUN (Blood Urea Nitrogen), S 9 6 - 21 mg/dL 05/20/2025 10:03 AM CDT DTL Blood (Blood, Venous) 05/20/2025 8:48 AM CDT 05/20/2025 9:27 AM CDT Lito Pollock P.A.-C. LAB BLOOD ADD-ON Final Result [facility] [address] [place] [address] * ALT (Alanine Aminotransferase) (05/20/2025 8:48 AM CDT) Only the most recent of8 resultswithin the time period is included. Alanine Aminotransferase (ALT), S 33 7 - 45 U/L 05/20/2025 10:03 AM CDT DTL Blood (Blood, Venous) 05/20/2025 8:48 AM CDT 05/20/2025 9:27 AM CDT Lito Ferrer-C. LAB BLOOD ADD-ON Final Result Performing Organization Address [facility] Co de Phone Number [facility] [address] [place] [address] * AST (Aspartate Aminotransferase) (05/20/2025 8:48 AM CDT) Only the most recent of8 resultswithin the time period is included. Aspartate Aminotransferase (AST), P 26 8 - 43 U/L 05/20/2025 9:22 AM CDT [facility] Blood (Blood, Venous) 05/20/2025 8:48 AM CDT 05/20/2025 9:01 AM CDT Lito Ferrer-C. LAB BLOOD ADD-ON Final Result Performing Organization Address City/[facility] Co de Phone Number [facility] [address] [place] [address], [facility] [address] * Sodium (05/20/2025 8:48 AM CDT) Only the most recent of8 resultswithin the time period is included. Sodium, S 140 135 - 145 mmol/L 05/20/2025 10:03 AM CDT DTL Blood (Blood, Venous) 05/20/2025 8:48 AM CDT 05/20/2025 9:27 AM CDT Lito SladeC. LAB BLOOD ADD-ON Final Result Performing Organization Address City/[facility]/ZIP Co de Phone Number [facility] [address] [place] [address] * Potassium (05/20/2025 8:48 AM CDT) Only the most recent of8 resultswithin the time period is included. Potassium, S 4.0 3.6 - 5.2 mmol/L 05/20/2025 10:03 AM CDT DTL Blood (Blood, Venous) 05/20/2025 8:48 AM CDT 05/20/2025 9:27 AM CDT Lito Pollock P.A.-C. LAB BLOOD ADD-ON Final Result Performing Organization Address [facility] de Phone Number [facility] [address] [place] [address] * Alkaline Phosphatase (05/20/2025 8:48 AM CDT) Only the most recent of8 resultswithin the time period is included. Alkaline Phosphatase, S 103 35 - 104 U/L 05/20/2025 10:03 AM CDT DTL Blood (Blood, Venous) 05/20/2025 8:48 AM CDT 05/20/2025 9:27 AM CDT Lito Pollock P.A.-C. LAB BLOOD ADD-ON Final Result Performing Organization Address City/[facility]/ZIP Co de Phone Number [facility] [address] [place] [address] * LD (Lactate Dehydrogenase) (05/20/2025 8:48 AM CDT) Only the most recent of8 resultswithin the time period is included. [facility] LD 173 122 - 222 U/L 05/20/2025 10:11 AM CDT DTL Blood (Blood, Venous) 05/20/2025 8:48 AM CDT 05/20/2025 9:49 AM CDT Lito SladeC. LAB BLOOD NON ADD-ON Final Res ult [facility] [address] [place] [address] * (ABNORMAL) Glucose, Fasting (05/20/2025 8:48 AM CDT) Only the most recent of8 resultswithin the time period is included. [facility] Glucose, P 158(H) 70 - 100 mg/dL 05/20/2025 10:00 AM CDT DTL Last Intake 1 hr 05/20/2025 9:27 AM CDT DT Blood (Blood, Venous) 05/20/2025 8:48 AM CDT 05/20/2025 9:27 AM CDT Lito SladeC. LAB BLOOD NON [place] [address] * Creatinine with Estimated GFR (05/20/2025 8:48 AM CDT) Only the most recent of8 resultswithin the time period is included. [facility] Creatinine 0.90 0.59 - 1.04 mg/dL 05/20/2025 10:03 AM CDT DTL Estimated GFR (eGFR) 85 >=60 mL/min/BSA 05/20/2025 10:03 AM CDT DTL Comment: Estimated GFR calculated using the 2020 CKD_EPI creatinine equation. Blood (Blood, Venous) 05/20/2025 8:48 AM CDT 05/20/2025 9:27 AM CDT Lito Pollock P.A.-C. LAB BLOOD ADD-ON Final Result Performing Organization Address City/[facility] Co de Phone Number [facility] [address] [place] [address] * Calcium, Total (05/20/2025 8:48 AM CDT) Only the most recent of8 resultswithin the time period is included. Calcium, Total, S 9.2 8.6 - 10.0 mg/dL 05/20/2025 10:03 AM CDT DT Blood (Blood, Venous) 05/20/2025 8:48 AM CDT 05/20/2025 9:27 AM CDT Lito Pollock P.A.-C. LAB BLOOD ADD-ON Final Result Performing Organization Address City/[facility]/ZIP Co de Phone Number [facility] [address] [place] [address] * Bilirubin, Total (05/20/2025 8:48 AM CDT) Only the most recent of8 resultswithin the time period is included. Bilirubin, Total, P 0.3 0.0 - 1.2 mg/dL 05/20/2025 9:22 AM CDT [facility] Blood (Blood, Venous) 05/20/2025 8:48 AM CDT 05/20/2025 9:01 AM CDT Lito Pollock P.A.-C. LAB BLOOD ADD-ON Final Result Performing Organization Address City/[facility]/ZIP Co de Phone Number [facility] [address] [place] [address], [facility] METH [facility] [address] [place] [address] * Albumin (05/20/2025 8:48 AM CDT) Only the most recent of8 resultswithin the time period is included. Pathologist [facility] Albumin, S 4.2 3.5 - 5.0 g/dL 05/20/2025 10:03 AM CDT DTL Blood (Blood, Venous) 05/20/2025 8:48 AM CDT 05/20/2025 9:27 AM CDT us Lito Pollock P.A.-C. LAB BLOOD ADD-ON Final Result Performing Organization Address [facility] Co de Phone Number [facility] [address] [place] [address] * Bacteria / Celso Culture, Blood #2 (05/17/2025 4:04 PM CDT) Only the most recent of2 resultswithin the time period is included. [facility] Bacteria/Yulia da Culture, Blood No growth after 5 days of incubation. 05/22/2025 5:02 PM CDT DTL Blood (Blood, Peripheral Draw) 05/17/2025 4:04 PM CDT 05/17/2025 4:50 PM CDT Comment:Specimen Source Site : Blood Renita Potts APRN, C.N.P. , D.N.P. LAB MICROBIOLOGY - GENERAL ORDERABLES Final Result Performing Organization Address City/[facility] Co de Phone Number [facility] [address] DTL [facility] [place] [address] * Lactate for Sepsis with Reflex (05/17/2025 3:43 PM CDT) [facility] Lactate, P 1.6 0.5 - 2.2 mmol/L 05/17/2025 4:55 PM CDT DTL Blood (Blood, Venous) 05/17/2025 3:43 PM CDT 05/17/2025 4:41 PM CDT Renita Potts APRN, C.N.P., D.N.P. LAB BLOOD N ON ADD-ON Final Result Performing Organization Address City/[facility]/[place] [address] * Clostridioides (Clostridium) Difficile Toxin, Molecular Detection, PCR, Feces (05/17/2025 2:42 PM CDT) [facility] C. difficile Toxin, F Negative Negative 05/17/2025 3:59 PM CDT DT Stool (Stool) 05/17/2025 2:4 2 PM CDT 05/17/2025 3:13 PM CDT Tiffani Leroy APRN, C.N.P., D.N.P. LAB MICROBIOLOGY - GENERAL ORDERABLES Final Result Performing Organization Address City/[facility]/[place] [address] * Chimerism Transplant Sorted Cells (04/29/2025 9:42 AM CDT) Only the most recent of2 resultswithin the time period is included. [facility] Specimen Type Peripheral blood 05/01 12:05 PM CDT DTL Interpretation Peripheral blood, chimerism analysis: CD3-positive T-cells: The CD3-positive fraction contains approximately 80% donor DNA and approximately 20% recipient DNA. KP14-hpyiauty myeloid cells: The QU07-ssroqfei fraction contains approximately 100% donor DNA and [...] purity of 95% or greater. Markers analyzed: [id number], [id number], FGA, SE33, vWA, D21S11, [id number], [id number], K19T868, D18S51, O8R011, [id number], CSF1PO, U4W252, H40Z696, Y86V669, TPOX, [id number], M7D868 and [id number] 05/01/2025 12:05 PM CDT DTL Comment: ----ADDITIONAL INFORMATION---- Method summary - Chimerism: Genomic DNA was extracted and the specimen evaluated for the percentages of donor and recipient DNA using a PCR-based method that amplifies several highly polymorphic short tandem repeats (see [facility] Interpretive Handbook for method details). This test was developed and its performance characteristics determined by [facility] in a manner consistent with CLIA requirements. This test has not been cleared or approved by the U.S. Food and Drug Administration. Blood (Blood, Venous) 04/29/2025 9:42 AM CDT 04/29/2025 10:38 AM CDT us Jessica Barnes LAB GENETIC TESTING Final Result [facility] [address] [place] [address], [facility] DT [address] [place] [address] * BCR/ABL1, p210, mRNA Detection, Reverse Conveyor Maintenance Mechanic-PCR (RT-PCR), Quantitative, Monitoring Chronic Myeloid Leukemia (CML) (04/29/2025 9:42 AM CDT) Specimen Type Peripheral blood 04/30 10:54 AM [...] level was evaluated using a quantitative, reverse cook chef PCR. The analytical sensitivity of this assay [...] all possible fusion forms. Please contact the [facility] at [phone] with questions or if additional testing is required. See the [facility] Interpretive Handbook for method details. [...] developed and its performance characteristics determined by [facility] in a manner consistent with CLIA requirements. This test has not been cleared or approved by the U.S. Food and Drug Administration. Blood (Blood, Venous) 04/29/2025 9:42 AM CDT 04/29/2025 10:39 AM CDT Jessica Barnes LAB BLOOD NON ADD-ON Final Result [facility] [address] [place] [address], [facility] DTL [address] [facility] [address] [place] [address] * (ABNORMAL) CD4 Count for Immune Monitoring [...] reagent. Its performance characteristics were determined by [facility] in a manner consistent with CLIA requirements. This test has not been cleared or approved by the U.S. Food and Drug Administration. Blood (Blood, Venous) 04/29/2025 9:42 AM CDT 04/29/2025 11:38 AM CDT Jessica LiconaS. LAB BLOOD ADD-ON Final Res ult Performing Organization Address City/[facility]/ZIP Co de Phone Number [facility] [address] [place] [address] [facility] [address] [place] [address] [place] [address] * EBV DNA Detect/Quant (03/24/2025 9:30 AM CDT) Only the most recent of4 resultswithin the time period is included. [facility] EBV DNA Detect/Quant, P Undetected Undetected IU/mL 03/24/2025 6:41 PM CDT [facility] Comment: Result in log IU/mL is Undetected. ----ADDITIONAL INFORMATION---- The quantification range of this assay is 35 to 100,000,000 IU/mL (1.54 log to 8.00 log IU/mL). Testing was performed using the lucrecia EBV test ([employer] Blood (Blood, Venous) 03/24/2025 9:30 AM CDT 03/24/2025 11:31 AM CDT Jessica Bustillos.S. LAB MICROBIOLOGY - BLOOD O RDERABLES Final Result Performing Organization Address [facility]/ZIP Co de Phone Number [facility] [address] [place] [address] [facility] [address] [place] [address] [place] [address] * Immunoglobulins (IgG, IgA, and IgM) (03/24/2025 9:30 AM CDT) [facility] Immunoglobulin A (IgA), S 153 61 - 356 mg/dL 03/24/2025 5:42 PM CDT [facility] Immunoglobulin M (IgM), S 43 37 - 286 mg/dL 03/24/2025 5:47 PM CDT [facility] Immunoglobulin G (IgG), S 1120 767 - 1590 mg/dL 03/24/2025 5:42 PM CDT [facility] Blood (Blood, Venous) 03/24/2025 9:30 AM CDT 03/24/2025 11:37 AM CDT us Jessica DowlingB.S. LAB BLOOD ADD-ON Final Res ult [facility] [address] [place], [place] [id number] [place] [address] [place] [address] * Hemoglobin A1c (03/24/2025 9:30 AM CDT) Pathologist [facility] Hemoglobin A1c, B 4.9 4.0 - 5.6 % 03/24/2025 10:50 AM CDT DT Blood (Blood, Venous) 03/24/2025 9:30 AM CDT 03/24/2025 9:41 AM CDT us Jessica DowlingB.S. LAB BLOOD ADD-ON Final Res ult [facility] [address] [place] [address], [facility] [address] [place] [address] * (ABNORMAL) Lipid Panel (03/24/2025 9:29 AM CDT) Triglycerides 255(H) mg/dL 03/24/2025 10:28 AM CDT DT Comment: ----REFERENCE VALUE---- Normal: <150 mg/dL Borderline High: 150-199 mg/dL High: 200-499 mg/dL Very High: > or =500 mg/dL Cholesterol, Total 188 mg/dL 2024 10:28 AM CDT DTL Comment: ----REFERENCE VALUE---- Desirable: < 200 mg/dL Borderline High: 200 - 239 mg/dL High: > or = 240 mg/dL Cholesterol, LDL, Calculated 101 mg/dL 03/24/2025 10:28 AM CDT DTL Comment: ----REFERENCE VALUE---- Desirable: <100 mg/dL Above Desirable: 100-129 mg/dL Borderline High: 130-159 mg/dL High: 160-189 mg/dL Very High: >=190 mg/dL ----ADDITIONAL INFORMATION---- LDL cholesterol calculated using the Thompson/NIH equation. Cholesterol, HDL, S 44(L) >=50 mg/dL 03/24/2025 10:28 AM CDT DTL Cholesterol, Non-HDL, Calculated 144 mg/dL 03/24/2025 10:28 AM CDT DTL Comment: ----REFERENCE VALUE---- Desirable: <130 mg/dL Above Desirable: 130-159 mg/dL Borderline High: 160-189 mg/dL High: 190-219 mg/dL Very High: > or =220 mg/dL Fasting (8 HR or more) No 03/24/2025 9:30 AM CDT DTL Blood (Blood, Venous) 03/24/2025 9:29 AM CDT 03/24/2025 9:47 AM CDT us Jessica Barnes LAB BLOOD ADD-ON Final Res ult [facility] [address] [place] [address], [facility] DTH[facility] [address] [place] [address] * Thyroid Function Marion (03/24/2025 9:29 AM CDT) TSH, Sensitive 1.8 0.3 - 4.2 mIU/L 03/24/2025 10:28 AM CDT DTL Blood (Blood, Venous) 03/24/2025 9:29 AM CDT 03/24/2025 9:47 AM CDT Jessica LiconaS. LAB BLOOD ADD-ON Final Res ult Performing Organization Address City/[facility] Co de Phone Number [facility] [address] [place] [address], [facility] DTL [facility] [address] [place] [address] * 25-Hydroxyvitamin D2 and D3 (03/24/2025 9:29 AM CDT) 25-Hydroxy D2 <4.0 ng/mL 03/26/2025 1:11 PM CDT [facility] 25-Hydroxy D3 38 ng/mL 03/26/2025 1:11 PM CDT [facility] 25-Hydroxy D Total 38 ng/mL 2024 1:11 PM CDT [facility] Comment: ----REFERENCE VALUE---- 25-HYDROXY D TOTAL (D2+D3) Optimum levels in the healthy population are 20-50. ----ADDITIONAL INFORMATION---- This test was developed and its performance characteristics determined by [facility] in a manner consistent with CLIA requirements. This test has not been cleared or approved by the U.S. Food and Drug Administration. Blood (Blood, Venous) 03/24/2025 9:29 AM CDT 03/24/2025 12:16 PM CDT Jessica LiconaS. LAB BLOOD ADD-ON Final Res ult Performing Organization Address City/[facility]/ZIP Co de Phone Number [facility] [address] [place] [address] [facility] [address] [place] [address] [place] [address] * Ferritin (03/24/2025 9:29 AM CDT) Ferritin, S 132 6 - 175 mcg/L 03/24/2025 10:28 AM CDT DTL Blood (Blood, Venous) 03/24/2025 9:29 AM CDT 03/24/2025 9:47 AM CDT us Jessica Barnes LAB BLOOD ADD-ON Final Res ult [facility] [address] [place] [address], [facility] [address] [place] [address] * Pulmonary Function Tests (03/23/2025 9:48 AM CDT) FVC 5.33 L 03/23/2025 11:15 AM CDT [facility] FEV1 4.40 L 03/23/2025 11:15 AM CDT [facility] FEV1/FVC 82.70 % 03/23/2025 11:15 AM CDT [facility] ADN80-28% 4.89 L/s 03/23/2025 11:15 AM CDT [facility] PEF PRE 8.01 L/s 03/23/2025 11:15 AM CDT [facility] PIF PRE 8.12 L/s 03/23/2025 11:15 AM CDT [facility] Pre FEF50/FIF50 77.59 % 03/23/2025 11:15 AM CDT [facility] FET PRE 6.33 sec 03/23/2025 11:15 AM CDT [facility] DLCO 22.95 ml/(min*mm Hg) 03/23/2025 11:15 AM CDT [facility] DLCOc 24.32 ml/(min*mm Hg) 03/23/2025 11:15 AM CDT [facility] HB 11.70 g(Hb)/dL 03/23/2025 11:15 AM CDT [facility] Pre % Pred VA SINGLE BREATH 6.32 L 03/23/2025 11:15 AM CDT [facility] PulseRest 70.00 1/min 03/23/2025 11:15 AM CDT [facility] I0CvxErzj 98.00 % 03/23/2025 11:15 AM CDT [facility] PulseExer 121.00 1/min 03/23/2025 11:15 AM CDT [facility] EXER TIME 3.00 min 03/23/2025 11:15 AM CDT [facility] STEP HEIGHT PRE 9.00 Inch 03/23/2025 11:15 AM CDT [facility] 03/23/2025 9:48 AM CDT Impressions [facility] - 03/23/2025 11:15 AM CDT Normal spirometry and diffusing capacity. Normal oxygen saturation at rest and exercise. Compared to 11/05/2024, no change in FVC, FEV1 and DLCO. Narrative Procedure Note Karina Medley M.D. - 03/23/2025 IMPRESSION: Normal spirometry and diffusing capacity. Normal oxygen saturation at restand exercise. Compared to 11/05/2024, no change in FVC, FEV1 and DLCO. us Jessica Barnes PFT ORDERABLES Final Resu lt [facility] NA * BMD Bone Density Spine Hips (03/20/2025 11:02 AM CDT) Anatomical Region Laterality Modality Hip, Lumbar Spine, Nuclear M edicine RST LOS, Musculoskeletal ARZ LOS, Muskuloskeletal FLA LOS N/A Radio graphic Imaging Impressions 03/20/2025 11:48 AM CDT Bone mineral density within expected range for age. Narrative 03/20/2025 11:48 AM CDT EXAM: BMD BONE DENSITY SPINE HIPS Bone Mineral Density (BMD) analysis performed on [employer] with serial number [id number]. FINDINGS: Left Hip: Femur Neck: BMD = 0.994 g/cm2 Z-score = -0.7 Total Hip: BMD = 1.011 g/cm2 Z-score = -0.6 Right Hip: Femur Neck: BMD = 1.039 g/cm2 Z-score = -0.4 Total Hip: BMD = 1.057 g/cm2 Z-score = -0.2 Lumbar Spine: L1: BMD = 1.081 g/cm2 L2: BMD = 1.170 g/cm2 L3: BMD = 1.135 g/cm2 L4: BMD = 1.130 g/cm2 Total Lumbar Spine (L1-L4): BMD = 1.130 g/cm2 Z-score = -1.6 Please note: A more comprehensive DXA report, including images and graphs, is available in QREADS. In the absence of other causes of low BMD or demonstrated skeletal fragility, osteoporosis may be diagnosed in post-menopausal women and men at or above age 50 when the T-score is at or below -2.5 as defined by the WHO. Low bone density is present at T-scores between -1 and -2.5. The diagnosis in pre-menopausal women and men < age 50 can be based on low bone density or evidence of skeletal fragility in the appropriate clinical setting. Procedure Note Ta Loera M.D. - 03/20/2025 EXAM: BMD BONE DENSITY SPINE HIPS Bone Mineral Density (BMD) analysis performed on [employer] with serialnumber [id number]. FINDINGS: Left Hip: Femur Neck: BMD = 0.994 g/cm2 Z-score = -0.7 Total Hip: BMD = 1.011 g/cm2 Z-score = -0.6 Right Hip: Femur Neck: BMD = 1.039 g/cm2 Z-score = -0.4 Total Hip: BMD = 1.057 g/cm2 Z-score = -0.2 Lumbar Spine: L1: BMD = 1.081 g/cm2 L2: BMD = 1.170 g/cm2 L3: BMD = 1.135 g/cm2 L4: BMD = 1.130 g/cm2 Total Lumbar Spine (L1-L4): BMD = 1.130 g/cm2 Z-score = -1.6 Please note: A more comprehensive DXA report, including images and graphs,is available in QREADS. In the absence of other causes of low BMD or demonstrated skeletalfragility, osteoporosis may be diagnosed in post-menopausal women and menat or above age 50 when the T-score is at or below -2.5 as defined by theWHO. Low bone density is present at T-scores between -1 and -2.5. The diagnosis in pre-menopausal women andmen < age 50 can be based on low bone density or evidence of skeletalfragility in the appropriate clinical setting. IMPRESSION: Bone mineral density within expected range for age. Jessica DowlingB.S. IMG DXA PROCEDURES Final R esult * TXP Line D/C (03/10/2025 1:00 PM CDT) Narrative [facility] - 03/10/2025 1:00 PM CDT Jaleel Loera APRN, C.N.P., M.S.N. 03/10/2025 1:35 PM #1 Camargo catheter removal PROCEDURE NOTE: CATHETER REMOVAL PERFORMED IN [place] [id number] PROCEDURE ROOM ASSISTED BY: Shawanda Castillo RN Plts:187 PT:10.8 INR:1.0 The procedure was described in detail including risks, benefits, alternatives for procedure and informed consent was obtained. Patient understands information and questions were answered. The patient desires to proceed. Procedural pause conducted to verify: Correct patient identity and procedure to be performed. The skin was prepped with Betadine. Sutures were removed, and local anesthesia using 1% lidocaine was administered. The double-lumen Camargo catheter was removed without difficulty. There was no bleeding or hematoma post procedure. A pressure dressing was applied and the patient was instructed to keep the dressing dry and in place for 24-hours. The patient was observed for 30 minutes after the catheter was removed. The patient tolerated the procedure well and was dismissed from the procedure room in excellent condition. Jessica DowlingB.S. PROCEDURE/MINOR SURGICAL O RDERABLES Final Result Performing Organization Address [facility] Co de Phone Number [facility] NA * [facility], Blood (03/10/2025 10:12 AM CDT) Number of Specimens 1 03/10/2025 10:12 AM CDT HSS Blood (Blood, Venous) 03/10/2025 10:12 AM CDT 03/10/2025 10:12 AM CDT Jessica DowlingB.S. LAB RESEARCH NO RESULT ROU TING Final Result Performing Organization Address City/State/[facility] Co de Phone Number [facility] [address] [place] [address], [facility] HSS [facility] [address] [place] [address] * Prothrombin Time (PT) (03/10/2025 10:11 AM CDT) Prothrombin Time, P 10.8 9.4 - 12.5 sec 03/10/2025 11:20 AM CDT DT INR 1.0 0.9 - 1.1 03/10/2025 11:20 AM CDT DT Comment: ----ADDITIONAL INFORMATION---- Standard intensity warfarin therapeutic range: 2.0 to 3.0 High intensity warfarin therapeutic range: 2.5 to 3.5 Blood (Blood, Venous) 03/10/2025 10:11 AM CDT 03/10/2025 10:30 AM CDT Saranya Solorio APRN, C.N.P. LAB BLOOD ADD-ON Fi nal Result Performing Organization Address City/State/[facility] Co de Phone Number [facility] [address] [place] [address], [facility] [address] [place] [address] * Tacrolimus, Trough (03/03/2025 9:15 AM CDT) Tacrolimus, Trough 5.3 5.0-15.0 (Trough) ng/mL 03/03/2025 2:55 PM CDT [facility] Comment: ----ADDITIONAL INFORMATION---- Target steady-state trough concentrations vary depending on the type of transplant, concomitant immunosuppression, clinical/institutional protocols, and time post-transplant. Results should be interpreted in conjunction with this clinical information and any physical signs/symptoms of rejection/toxicity. Testing performed by Liquid Chromatography-Tandem Mass Spectrometry (LC-MS/MS). This test was developed and its performance characteristics determined by [facility] in a manner consistent with CLIA requirements. This test has not been cleared or approved by the U.S. Food and Drug Administration. Blood (Blood, Venous) 03/03/2025 9:15 AM CDT 03/03/2025 10:48 AM CDT us Devi Roper APRN, C.N.P., D.N.P. LAB BLOOD NON ADD-ON Final Result [facility] [address] [place] [address] [facility] [address] [place] [address] [place] [address] * ThinPrep w/HPV Co-Test Screen (10/15/2019 11:05 AM VEHICLE MONITOR TECHNICIAN) 10/21/2019 4:10 PM VEHICLE MONITOR TECHNICIAN [facility] Report electronically signed by JEFF Mora(ASCP) I verify that I have examined all relevant slides/materials for the specimen(s) and rendered or confirmed the diagnosis. 10/21/2019 4:10 PM VEHICLE MONITOR TECHNICIAN [facility] Gross Description Received specimen in a ThinPrep vial. 10/21/2019 4:10 PM VEHICLE MONITOR TECHNICIAN [facility] Pap Test Source Cervical/Endocervi lolly 10/21/2019 4:10 PM VEHICLE MONITOR TECHNICIAN [facility] Clinical History other 10/21/20 19 4:10 PM VEHICLE MONITOR TECHNICIAN [facility] Menstrual Status(LMP, PM, ) on depo lupron 10/21/2019 4:10 PM VEHICLE MONITOR TECHNICIAN [facility] Hormone Therapy/Contracep tives Hormone Replacement Therapy 10/21/2019 4:10 PM VEHICLE MONITOR TECHNICIAN [facility] Interpretation Cervical/Endocervi lolly (ThinPrep): Satisfactory for Evaluation Negative for Intraepithelial Lesion or Malignancy High Risk HPV: Negative Negative for High Risk HPV by nucleic acid amplification. The following High Risk HPV types were not detected: 16, 18, 31, 33, 35, 39, 45, 51, 52, 56, 58, 59, 66, and 68. 10/21/2019 4:10 PM VEHICLE MONITOR TECHNICIAN [facility] Varies (Cervix/Endocerv ix) 10/15/2019 11:05 AM VEHICLE MONITOR TECHNICIAN 10/17/2019 7:54 AM VEHICLE MONITOR TECHNICIAN us Adore Alonso M.D. LAB PAP PATHDX ORDERABLE S Final Result Performing Organization Address City/[facility]/ZIP Co de Phone Number [facility] [address] [place] [address], [place] [facility] [address] [place] [address] * HCV Ab Scrn w/Reflex to HCV PCR, Serum (12/12/2018 5:58 PM VEHICLE MONITOR TECHNICIAN) HCV Ab Screen, S Negative Negative 12/12/2018 10:26 PM VEHICLE MONITOR TECHNICIAN [facility] Comment:Xuuwtf-um-[id number] rat io is <1.00. Blood (Blood, Venous) 12/12/2018 5:58 PM VEHICLE MONITOR TECHNICIAN 12/12/2018 7:59 PM VEHICLE MONITOR TECHNICIAN Adore Yip APRN, C .N.P., D.N.P. LAB MICROBIOLOGY - BLOOD ORDERABLES Final Result Performing Organization Address City/[facility]/ZIP Co de Phone Number [facility] [address] [place] [address] * Hepatitis B Surface Antigen (12/12/2018 5:58 PM VEHICLE MONITOR TECHNICIAN) HBs Antigen, S Negative Negative 12/12/2018 10:08 PM VEHICLE MONITOR TECHNICIAN [facility] Blood (Blood, Venous) 12/12/2018 5:58 PM VEHICLE MONITOR TECHNICIAN 12/12/2018 7:59 PM VEHICLE MONITOR TECHNICIAN Adore Yip APRN, C .N.P., D.N.P. LAB MICROBIOLOGY - BLOOD ORDERABLES Final Result [facility] [address] [place] [address] from Last 3 Months or Most Recently Relevant to Health Maintenance Additional Health Concerns Infection Onset Date Last Indicated Protective Environment 03/02/2023 3 Insurance [facility] [place] [address] [place] [employer] [facility] Address: [address] [place] [address] MEDICARE Advance Directives For more information, please contact: [phone] Documents on File Type Date Recorded Patient Sql Application Developer Expl anation Advance Directives 12/08/2024 9:32 AM Gabrielle LARIOS/ADVOCATE/AGENT/R EPRESENTATIVE/SURROGAT E * Full Code (Latest Code Status on File) Date Activated Date Inactivated Comments 05/28/2025 3:47 PM 05/29/2025 6:37 PM Question Answer Comments Full Code: Discussed * Full Code Date Activated Date Inactivated Comments 12/19/2024 7:15 AM 12/27/2024 5:31 PM Question Answer Comments Full Code: Discussed * Full Code Date Activated Date Inactivated Comments 12/13/2024 7:41 AM 12/15/2024 2:36 PM Question Answer Comments Full Code: Discussed * Full Code Date Activated Date Inactivated Comments 12/12/2018 4:53 PM 12/16/2018 7:30 PM Question Answer Comments Full Code: Discussed Healthcare Agents on File Name Relationship Healthcare Agent [facility] p Communication Gabrielle Matrinez Mother Health Care Agent Charles Minor Significant Other First Alternat e Health Care Agent Care Teams Ironer Or Presser Relationship Specialty Start Date End Date Renzo Andres M.D. NPAmanda: [id number] [address] [place] [id number] PCP - General Family Medicine 04/25/23
--- OUTSIDE RECORDS SUMMARY | 2025-05-31 15:55 | XMS_ITS | Encounter Summary ---
Author Organization [facility] Address [address] [place] [address] Care Team Providers Care Lanolin Plant Operator Name Role Phone Renzo Andres M.D. Primary Care Provider Reason for Visit * Reason Onset Date Comments Nurse Assessment 05/03/2025 Nausea/Vomiting Encounter Details Date Type Department Care Team (Latest Contact Info) Description 05/03/2025 Clinical Communication [facility], Ninth Floor [address] [place] [address] Juan Mahmood, RKatalinaNKatalina Nurse Assessment (Nausea/Vomiting ) Social History Tobacco Use Types Packs/Day Years Used Date Smoking Tobacco: Never Smokeless Tobacco: Never Alcohol Use Standard Drinks/Week Comments Yes 0 (1 standard drink = 0.6 oz pur e alcohol) social [facility] Utilities Answer Date Recorded In the [...] your living situation today? I have a [facility] place to live 12/19/2024 Education Answer Date Recorded What is the highest level of school you have completed or the highest degree you have received? Some college, no degree 04/24/2019 Comments No Sex and Gender Information Value Date Recorded Sex Assigned at Female 12/26/2018 8:37 PM EASEMENT MAN Legal Sex Female 2:43 PM EASEMENT MAN Gender Identity Female 12/26/2018 8:37 PM EASEMENT MAN Sexual Orientation Choose not to disclose 2020 3:46 PM CDT documented as of this encounter Miscellaneous Notes * Telephone Encounter - Juan Mahmood R.N. - 05/03/2025 9:40 AM CDT Reason for call: vomiting after taking pills Transplant Type and Transplant Day (pre/post) Allo D+144 Nausea/vomiting: When did your symptoms start? Today, AM Frequency of vomiting episodes 1 Approximate volume/amount of emesis small (clear, no pills observed) Length of time nausea and/or vomiting has been occurring sudden onset, no nausea/vomiting previously Has anything prompted this, made it better or worse? Happened this morning after taking pills- tookpills on any empty stomach with some water. Do you have medications for nausea? Yes;Yobany Mcbride Have you taken any medications to relieve symptoms, if so, what medications and how did that effectyour symptoms? No Recommendations/Coordination of Care Recommended to the patient: Encouraged patient to utilize anti-emetics prior to eating Telephone Triage for Oncology Nurses (Second Edition) pages 189-190 documented in this encounter Plan of Treatment Upcoming Encounters Date Type Department Care Team (Latest Contact Info) Description 05/29/2025 11:59 PM CDT Anesthesia Event Division of Gastroenterology in [place], [place] [address] [place] [phone] Bri Valenzuela M.D. [address] [place] [phone] 06/01/2025 1:15 PM CDT Appointment Division of Gastroenterology in [place], [place] [address] [place] [phone] Lito Pollock P.A.-C. [address] [place] [phone] Jeaneth Núñez M.B.B.S., M.S. [address] [place] [phone] 06/03/2025 7:30 AM CDT Appointment Department of Laboratory Medicine in [address] [phone] Lito Pollock P.A.-C. [address] [place] [phone] 06/03/2025 10:00 AM CDT Telemedicine [facility] for Transplantation and Clinical Regeneration in [place], [place] [address] [place] [phone] Tessa Jesus APRN, C.N.P., D.N.P. [address] [place] [phone] 06/10/2025 1:20 PM CDT Nurse Only Section of Infectious Diseases in [place], [place] [address] [place] [phone] Jessica Rousseau M.B.B.S. [address] [place] [phone] 06/15/2025 9:45 AM CDT Appointment Outpatient Procedure Center in [place], [place] [address] [place] [phone] Jessica Rousseau M.B.B.S. [address] [place] [phone] 06/24/2025 12:30 PM CDT Clinical Communication Virtual Review in [place], [place] 200 [place] [address] 06/25/2025 8:10 AM CDT Lab Department of Laboratory Medicine and Pathology, [facility], in [place], [place] [address] [place] [phone] Tessa Jesus APRN, C.N.P., D.N.P. [address] [place] [phone] 06/25/2025 9:00 AM CDT Office Visit [facility] in [place], [place] [address] [place] [phone] Tessa Jesus APRN, C.N.P., D.N.P. [address] [place] [phone] 06/25/2025 9:30 AM CDT Nurse Only [facility] Transplantation and Clinical Regeneration in [place], [place] [address] [place] [phone] Tessa Jesus APRN, C.N.P., D.N.P. [address] [place] [phone] 06/25/2025 10:30 AM CDT Office Visit [facility] Transplantation and Clinical Regeneration in [place], [place] [address] [place] [phone] Jessica Rousseau M.B.B.S. [address] [place] [phone] 06/26/2025 10:00 AM CDT Telemedicine Department of Palliative Care in [place], [place] [address] [place] [phone] Isabel Sellers M.D. [address] [place] [phone] Debbie Shay M.D. [address] [place] [phone] documented as of this encounter Visit Diagnoses Not on filedocumented in this encounter Additional Health Concerns Infection Onset Date Last Indicated Resolved Time Protective Environment 03/02/2023 03/02/2023 Assessment Noted Time PHQ-9 Depression Total Score: 2 12/10/19 25 2:46 PM EASEMENT MAN documented as of this encounter Care Teams Lanolin Plant Operator Relationship Specialty Start Date End Date Renzo Andres M.D. [address] [place] [phone] PCP - General Family Medicine 04/25/23 documented as of this encounter
--- OUTSIDE RECORDS SUMMARY | 2025-05-31 15:55 | XMS_ITS | Encounter Summary ---
Author Organization [facility] Address [address] [place] [address] Care Team Providers Care Loan Servicing Officer Name Role Phone Renzo Andres M.D. Primary Care Provider [phone] Encounter Details Date Type Department Care Team (Late st Contact Info) Description 04/27/2025 Specialty Pharmacy [facility] [address] [place] [phone] Isabel Bautista, Pharm.D., R.Ph. [address] [place] [phone] Social History Tobacco Use Types Packs/Day Years [...] Assigned at Female 12/26/2018 8:37 PM GAS APPLIANCE SERVICER HELPER Legal Sex Female 2:43 PM GAS APPLIANCE SERVICER HELPER Gender Identity Female 12/26/2018 8:37 PM GAS APPLIANCE SERVICER HELPER Sexual Orientation Choose not to disclose 2020 3:46 PM CDT documented as of this encounter Miscellaneous Notes * Telephone Encounter - Isabel Bautista Pharm.D., R.Ph. - 04/27/2025 9:57 AM CDT [facility] service discontinued at this time. documented in this encounter Plan of Treatment Upcoming Encounters Date Type Department Care Team (Latest Contact Info) Description 05/29/2025 11:59 PM CDT Anesthesia Event Division of Gastroenterology in [place], [place] [address] [place] [phone] Bri Valenzuela M.D. [address] [place] [phone] 06/01/2025 1:15 PM CDT Appointment Division of Gastroenterology in [place], [place] [address] [place] [phone] Lito Pollock P.A.-C. [address] [place] [phone] Jeaneth Núñez M.B.B.S., M.S. [address] [place] [phone] 06/03/2025 7:30 AM CDT Appointment Department of Laboratory Medicine in [address] [phone] Lito Pollock P.A.-C. [address] [place] [phone] 06/03/2025 10:00 AM CDT Telemedicine Pedro Aravind [facility] for Transplantation and Clinical Regeneration in [place], [place] [address] [place] [phone] Tessa Jesus, KARON, C.N.P., D.N.P. [address] [place] [phone] 06/10/2025 1:20 PM CDT Nurse Only Section of Infectious Diseases in [place], [place] [address] [place] [phone] Jessica Rousseau M.B.B.S. [address] [place] [phone] 06/15/2025 9:45 AM CDT Appointment Outpatient Procedure Center in [place], [place] [address] [place] [phone] Jessica Rousseau M.B.B.S. [address] [place] [phone] 06/24/2025 12:30 PM CDT Clinical Communication Virtual Review in [place], [place] 200 [place] [phone] 06/25/2025 8:10 AM CDT Lab Department of Laboratory Medicine and Pathology, [facility], in [place], [place] [address] [place] [phone] Tessa Jesus APRN, C.N.P., D.N.P. [address] [place] [phone] 06/25/2025 9:00 AM CDT Office Visit Pedro Myla laura [facility] for Transplantation and Clinical Regeneration in [place], [place] [address] [place] [phone] Tessa Jesus APRN, C.N.P., D.N.P. [address] [place] [phone] 06/25/2025 9:30 AM CDT [facility] in [address] [phone] Tessa Jesus APRN, C.N.P., D.N.P. [address] [place] [phone] 06/25/2025 10:30 AM CDT Office Visit Pedro sanchez [facility] for Transplantation and Clinical Regeneration in [place], [place] [address] [place] [phone] Jessica Rousseau M.B.B.S. [address] [place] [address] 06/26/2025 10:00 AM CDT Telemedicine Department of Palliative Care in [place], [place] [address] [place] [phone] Isabel Sellers M.D. [address] [place] [phone] Debbie Shay M.D. [address] [place] [phone] documented as of this encounter Visit Diagnoses Not on filedocumented in this encounter Additional Health Concerns Infection Onset Date Last Indicated Resolved Time Protective Environment 03/02/2023 03/02/2023 Assessment Noted Time PHQ-9 Depression Total Score: 2 12/10/19 25 2:46 PM GAS APPLIANCE SERVICER HELPER documented as of this encounter Care Teams Loan Servicing Officer Relationship Specialty Start Date End Date Renzo Andres M.D. [address] [place] [address] [place] [phone] PCP - General Family Medicine 04/25/23 documented as of this encounter
--- OUTSIDE RECORDS SUMMARY | 2025-05-31 15:55 | XMS_ITS | Encounter Summary ---
Author Organization [facility] Address [address] [place] [address] Care Team Providers Care Setter Cold Rolling Machine Name Role Phone Renzo Andres M.D. Primary Care Provider Encounter Details Date Type Department Care Team (Latest Contact Info) Description 04/18/2025 Clinical Communication Pedro Nazario [facility] for Transplantation and Clinical Regeneration in [place], [place] [address] [place] [phone] Becky Hernandez APRN, C.N.P., D.N.P. [address] [place] [phone] Social History Tobacco Use Types Packs/Day Years Used Date Smoking Tobacco: Never Smokeless Tobacco: Never Alcohol Use Standard Drinks/Week Comments Yes 0 (1 standard drink = 0.6 oz pur e alcohol) social [facility] Utilities Answer Date Recorded In the past [...] your living situation today? I have a [facility] place to live 12/19/2024 Education Answer Date Recorded What is the highest level of school you have completed or the highest degree you have received? Some college, no degree 04/24/2019 Comments No Sex and Gender Information Value Date Recorded Sex Assigned at Female 12/26/2018 8:37 PM CLINICAL FACULTY Legal Sex Female 2:43 PM CLINICAL FACULTY Gender Identity Female 12/26/2018 8:37 PM CLINICAL FACULTY Sexual Orientation Choose not to disclose 2020 3:46 PM CDT documented as of this encounter Miscellaneous Notes * Telephone Encounter - Becky Hernandez APRN, C.N.P., D.N.P. - 04/18/2025 12:35 PM CDT CHIEF COMPLAINT Pt calling station 94 stating she is continuing to have bilateral lower extremity nerve discomfort which seems to be worse today. She is currently taking gabapentin 300 mg in the am, 300 mg in the afternoon and 600 mg at night. Her gabapentin was recently uptitrated on April 16. She is also taking Cymbalta 120 mg daily. Additionally she has dilaudid 0.5 mg as needed and has been taking this at night to help with the pain. She has not taken dilaudid during the day as this makes her sedated.She otherwise is feeling well and has no fever or chills. She is not noticing any loss of bowel or bladder control. IMPRESSION/REPORT/PLAN # Peripheral Neuropathy Discussed with pt to try taking a 1/2 dose of dilaudid today during the day. I am going to request a follow-up with palliative medicine for further recommendations. I have setup a video visit follow-up with an VETERINARY PATHOLOGIST on Ch 9 to further discuss symptoms and up titration of gabapentin, consider increasing to 600 TID. She had no further questions or concerns [place] [phone] [place] [address] if she has any questions or concerns. documented in this encounter Plan of Treatment Upcoming Encounters Date Type Department Care Team (Latest Contact Info) Description 05/29/2025 11:59 PM CDT Anesthesia Event Division of Gastroenterology in [place], [place] [address] [place] [phone] Bri Valenzuela M.D. [address] [place] [phone] 06/01/2025 1:15 PM CDT Appointment Division of Gastroenterology in [place], [place] [address] [place] [phone] Lito Pollock P.A.-C. [address] [place] [phone] Jeaneth Núñez M.B.B.S., M.S. [address] [place] [phone] 06/03/2025 7:30 AM CDT Appointment Department of Laboratory Medicine in [place], [place] [address] [facility] [place] [phone] Lito Pollock P.A.-C. [address] [place] [phone] 06/03/2025 10:00 AM CDT Telemedicine [facility] for Transplantation and Clinical Regeneration in [place], [place] [address] [place] [phone] Tessa Jesus APRN, C.N.P., D.N.P. [address] [place] [phone] 06/10/2025 1:20 PM CDT Nurse Only Section of Infectious Diseases in [place], [place] [address] [place] [phone] Jessica Rousseau M.B.B.S. [address] [place] [phone] 06/15/2025 9:45 AM CDT Appointment Outpatient Procedure Center in [place], [place] [address] [place] [phone] Jessica Rousseau M.B.B.S. [address] [place] [phone] 06/24/2025 12:30 PM CDT Clinical Communication Virtual Review in [place], [place] 200 [place] [phone] 06/25/2025 8:10 AM CDT Lab Department of Laboratory Medicine and Pathology, [facility], in [place], [place] [address] [place] [phone] Tessa Jesus APRN, C.N.P., D.N.P. [address] [place] [phone] 06/25/2025 9:00 AM CDT [facility] in [place], [place] [address] [place] [address] Tessa Jesus APRN, C.N.P., D.N.P. [address] [place] [phone] 06/25/2025 9:30 AM CDT Nurse Only [facility] Transplantation and Clinical Regeneration in [place], [place] [address] [place] [phone] Tessa Jesus APRN, C.N.P., D.N.P. [address] [place] [phone] 06/25/2025 10:30 AM CDT Office [facility] in [place], [place] [address] [place] [phone] Jessica Rousseau M.B.B.S. [address] [place] [phone] 06/26/2025 10:00 AM CDT Telemedicine Department of Palliative Care in [place], [place] [address] [place] [phone] Isabel Sellers M.D. [address] [place] [phone] Debbie Shay M.D. [address] [place] [phone] documented as of this encounter Visit Diagnoses Not on filedocumented in this encounter Additional Health Concerns Infection Onset Date Last Indicated Resolved Time Protective Environment 03/02/2023 03/02/2023 Assessment Noted Time PHQ-9 Depression Total Score: 2 12/10/19 25 2:46 PM CLINICAL FACULTY documented as of this encounter Care Teams Setter Cold Rolling Machine Relationship Specialty Start Date End Date Renzo Andres M.D. NPAmanda: [phone] [address] [place] [address] [place] [phone] PCP - General Family Medicine 04/25/23 documented as of this encounter
--- OUTSIDE RECORDS SUMMARY | 2025-05-31 15:56 | XMS_ITS | Encounter Summary ---
Author Organization [facility] Address [address] [place] [address] Care Team Providers Care Metallic Yarn Slitting Machine Operator Name Role Phone Renzo Andres M.D. 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 [facility] a [facility] place to [facility] 12/19/2024 Education Answer Date Recorded What is the highest level of school you have completed or the highest degree you have received? Some college, no degree 04/24/2019 Comments No Sex and Gender Information Value Date Recorded Sex Assigned at Female 12/26/2018 8:37 PM TIP INSERTER Legal Sex Female 2:43 PM TIP INSERTER Gender Identity Female 12/26/2018 8:37 PM TIP INSERTER Sexual Orientation Choose not to disclose 2020 3:46 PM CDT documented as of this encounter Plan of Treatment Upcoming Encounters Date Type Department Care Team (Latest Contact Info) Description 05/29/2025 11:59 PM CDT Anesthesia Event Division of Gastroenterology in [place], [place] [address] [place] [phone] Bri Valenzuela M.D. [address] [place] [phone] 06/01/2025 1:15 PM CDT Appointment Division of Gastroenterology in [place], [place] [address] [place] [phone] Lito Pollock P.A.-C. [address] [place] [phone] Jeaneth Núñez M.B.B.S., M.S. [address] [place] [phone] 06/03/2025 7:30 AM CDT Appointment Department of Laboratory Medicine in [place], [place] [address] [place] [phone] Lito Pollock P.A.-C. [address] [place] [phone] 06/03/2025 10:00 AM CDT Telemedicine [facility] in [place], [place] [address] [place] [phone] Tessa Jesus, KARON, C.N.P., D.N.P. [address] [place] [phone] 06/10/2025 1:20 PM CDT Nurse Only Section of Infectious Diseases in [place], [place] [address] [place] [address] [phone] Jessica Rousseau M.B.B.S. [address] [place] [phone] 06/15/2025 9:45 AM CDT Appointment Outpatient Procedure Center in [place], [place] [address] [place] [phone] Jessica Rousseau M.B.B.SKatalina [address] [place] [phone] 06/24/2025 12:30 PM CDT Clinical Communication Virtual Review in [place], [place] 200 [place] [phone] 06/25/2025 8:10 AM CDT Lab Department of Laboratory Medicine and Pathology, [facility], in [place], [place] [address] [place] [phone] Tessa Jesus APRN, C.N.P., D.N.P. [address] [place] [phone] 06/25/2025 9:00 AM CDT [facility] in [place], [place] [address] [place] [phone] Tessa Jesus APRN, C.N.P., D.N.P. [address] [place] [phone] 06/25/2025 9:30 AM CDT Nurse Only Pedro sanchez [facility] for Transplantation and Clinical Regeneration in [place], [place] [address] [place] [phone] Tessa Jesus APRN, C.N.P., D.N.P. [address] [place] [phone] 06/25/2025 10:30 AM CDT [facility] in [place], [place] [address] [place] [phone] Jessica Rousseau M.B.B.S. [address] [place] [address] [phone] 06/26/2025 10:00 AM CDT Telemedicine Department of Palliative Care in [place], [place] [address] [place] [phone] Isabel Sellers M.D. [address] [place] [phone] Debbie Shay M.D. 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 [address] [place] [phone] PCP - General Family Medicine 04/25/23 documented as of this encounter
--- OUTSIDE RECORDS SUMMARY | 2025-05-31 15:56 | XMS_ITS | Encounter Summary ---
Author Organization [facility] Address [address] [place] [address] Care Team Providers Care Battery Assembler Name Role Phone Renzo Andres M.D. Primary Care Provider Encounter Details Date Type Department Care Team (Latest Contact Info) Description 05/17/2025 Clinical Communication Pedro Aravind [facility] Transplantation and Clinical Regeneration in [place], [place] [address] [place] [address] Ladonna Constantino, RKatalinaN. Social History Tobacco Use Types Packs/Day Years Used Date Smoking Tobacco: Never Smokeless Tobacco: Never Alcohol Use Standard Drinks/Week Comments Yes 0 (1 standard drink = 0.6 oz pur e alcohol) social [facility] Utilities Answer Date Recorded In the past 12 months has [facility] [employer], gas, oil, or water [employer] threatened to shut off services in your [...] your living situation today? I have a [facility] place to live 12/19/2024 Education Answer Date Recorded What is the highest level of school you have completed or the highest degree you have received? Some college, no degree 04/24/2019 Comments No Sex and Gender Information Value Date Recorded Sex Assigned at Female 12/26/2018 8:37 PM [employer]EL[employer] Legal Sex Female 2:43 PM [employer] Gender Identity Female 12/26/2018 8:37 PM [employer]EL[employer] Sexual Orientation Choose not to disclose 2020 3:46 PM CDT documented as of this encounter Miscellaneous Notes * Telephone Encounter - Ladonna Constantino R.N. - 05/17/2025 11:45 AM CDT Transplant Type and Transplant Day (pre/post) Allo When did the diarrhea begin? 4 days ago How many diarrhea stools in the past 24 hours? several Has diarrhea changed in the past 24-48 hours? No Color: Consistency: watery Amount: Have you noticed blood in the stool? No Sunday red or black tarry color? No Has anything prompted this, made it better or worse? (new medications, diet changes?) No Are you experiencing abdominal pain/cramping? No Is stool urgent or incontinent? Urgent How is this affecting your ability to drink, eat and take your medications? (estimate fluid intake)Patient reports only about 50 oz a day and denies dizziness. Nausea every am with pills. Have you taken any medications to relieve symptoms, if so, what medications and how did that effectyour symptoms? No Other contributing information? Recommendations/Coordination of Care Recommended to the patient to seek emergency care if: Grossly bloody stool. Have patient report to Hospital Based Outpatient on Station 9-4. Telephone Triage for Oncology Nurses (Second Edition) pages 111-112 documented in this encounter Plan of Treatment Upcoming Encounters Date Type Department Care Team (Latest Contact Info) Description 05/29/2025 11:59 PM CDT Anesthesia Event Division of Gastroenterology in [place], [place] [address] [place] [phone] Bri Valenzuela M.D. [address] [place] [phone] 06/01/2025 1:15 PM CDT Appointment Division of Gastroenterology in [place], [place] [address] [place] [phone] Lito Pollock P.A.-C. [address] [place] [phone] Jeaneth Núñez M.B.BKatalinaS., M.S. [address] [place] [phone] 06/03/2025 7:30 AM CDT Appointment Department of Laboratory Medicine in [address] [phone] Lito Pollock P.A.-C. [address] [place] [phone] 06/03/2025 10:00 AM CDT Telemedicine Pedro Myla laura [facility] for Transplantation and Clinical Regeneration in [place], [place] [address] [place] [phone] Tessa Jesus APRN, C.N.P., D.N.P. [address] [place] [phone] 06/10/2025 1:20 PM CDT Nurse Only Section of Infectious Diseases in [place], [place] [address] [place] [phone] Jessica Rousseau M.B.B.S. [address] [place] [phone] 06/15/2025 9:45 AM CDT Appointment Outpatient Procedure Center in [place], [place] [address] [place] [phone] Jessica Rousseau M.B.B.S. [address] [place] [phone] 06/24/2025 12:30 PM CDT Clinical Communication Virtual Review in [place], [place] 200 [place] [phone] 06/25/2025 8:10 AM CDT Lab Department of Laboratory Medicine and Pathology, [facility], in [place], [place] [address] [place] [phone] Tessa Jesus APRN, C.N.P., D.N.P. [address] [place] [phone] 06/25/2025 9:00 AM CDT Office Visit [facility] for Transplantation and Clinical Regeneration in [place], [place] [address] [place] [phone] Tessa Jesus APRN, C.N.P., D.N.P. [address] [place] [phone] 06/25/2025 9:30 AM CDT Nurse Only [facility] Transplantation and Clinical Regeneration in [place], [place] [address] [place] [phone] Tessa Jesus APRN, C.N.P., D.N.P. [address] [place] [phone] 06/25/2025 10:30 AM CDT Office Visit [facility] Transplantation and Clinical Regeneration in [place], [place] [address] [place] [phone] Jessica Rousseau M.B.BKatalinaS. [address] [place] [phone] 06/26/2025 10:00 AM CDT Telemedicine Department of Palliative Care in [place], [place] [address] [place] [phone] Isabel Sellers M.D. [address] [place] [phone] Debbie Shay M.D. [address] [place] [phone] documented as of this encounter Visit Diagnoses Not on filedocumented in this encounter Additional Health Concerns Infection Onset Date Last Indicated Resolved Time Protective Environment 03/02/2023 03/02/2023 Assessment Noted Time PHQ-9 Depression Total Score: 2 12/10/19 25 2:46 PM [employer]ELOPER documented as of this encounter Care Teams Battery Assembler Relationship Specialty Start Date End Date Renzo Andres M.D. [address] [place] [phone] PCP - General Family Medicine 04/25/23 documented as of this encounter
[2025-05-31 15:57] LABS: Anion Gap 8 mEq/L (7-15); Blood Urea Nitrogen* 17 mg/dL (5-24); Carbon Dioxide* 26 mmol/L (20-32); Creatinine* 0.8 mg/dL (0.5-1.5); Est. Creatinine Clearance* 98.07; Estimated Glomerular Filt Rate 98 ml/min
[2025-05-31 15:58] LABS: Calcium* 9.3 mg/dL (8.4-10.6); Glucose* 151 mg/dL (60-115)
[2025-05-31 16:11] LABS: D Dimer Quantitative* < 0.27 ug/ml (0.00-0.50)
--- NOTE | 2025-05-31 16:30 | CRLHL7_ITS ---
For Patients: As a result of the Century Cures Act, medical imaging exams and procedure reports are released immediately into your electronic medical record. You may view this report before your referring provider. If you have questions, please contact your health care provider. INDICATION: Chest pain COMPARISON: None. TECHNIQUE: PA and lateral 2 view chest. FINDINGS: Lung volumes are good. No focal or diffuse opacities. No pulmonary edema. No pleural effusion. No pneumothorax. No pneumomediastinum. Normal cardiomediastinal silhouette. Bones: Normal for age. IMPRESSION: Normal chest radiographs. Dictated by Gina Chamorro MD @ 05/31/2025 5:03:50 PM (Electronically Signed)
[2025-05-31 17:50] LABS: Troponin, Point-of-Care* 0.00 ng/ml (0.01-0.04)
== END 2025-05-31 17:58 | disposition home or self-care (01) ==
PROVIDERS: Emergency Provider Emergency Medicine; PCP Registered Nurse
DX: R07.9 Chest pain, unspecified (principal)
CPT/HCPCS: 36415; 71046; 80048; 84484; 85025; 85379; 99283; 99284

== ENCOUNTER 2025-06-02 08:14 | Emergency (ER) | payer MEDICARE, BC, SELFPAY ==
[2025-06-02 08:17] VITALS: BP 143/102; PULSE 85; RESP 18; TEMP 36.1; O2SAT 98; BMI 33.6
--- OUTSIDE RECORDS SUMMARY | 2025-06-02 08:19 | XMS_ITS | Clinical Summary ---
Author Organization [place] [facility] Address [address] [place] [address] Care Team Providers Care Special Collections Librarian Name Role Phone System, Provider Not In [...] Description 07/07/2025 2:40 PM CDT Office Visit [address] [place] [phone] Madeleine Roberts MD [address] [place] [address] [place] [address] [phone] Health Maintenance Due Date Last Done Comments [...] HEPATITIS C SCREENING Completed 08/02/2023, 019 Insurance [facility] MEDICARE [facility] MEDICARE Care Teams Special Collections Librarian Relationship Specialty Start Date End Date System, Provider Not In PCP - General Clinic 06/08/22
--- OUTSIDE RECORDS SUMMARY | 2025-06-02 08:19 | XMS_ITS | Clinical Summary ---
Author Organization [employer] [facility] Address [address] [place] [address] Care Team Providers Care Sports Clerk Name Role Phone Antoinette Palacio PhD, LP Unavailable [phone] Shweta Graciakim Huber DEBURRING MACHINE OPERATOR Unavailable [phone] Unavailable Staff, Other Clinical Unavailable UnavailErmelinda Cadet MD [...] Encounters Date Type Department Care Team Description 06/01/2025 8:45 AM CDT Telemedicine [facility] [address] [place] [address] Renita Pichardo PsSudeep, LP Psychotherapy 05/29/2025 Telephone [facility] [address] [place] [address] Iris Victor, [facility] Care Coordination (Re Engagement ) 05/28/2025 Telephone [facility] [address] [place] [address] Renita Pichardo PsyD, FIDENCIO FYI (Regarding appointment) 05/20/2025 1:45 PM CDT Telemedicine [facility] [address] [place] [address] Renita Pichardo PsyD, LP Psychotherapy 05/12/2025 1:45 PM CDT Telemedicine [facility] [address] [place] [address] Renita Pichardo PsyD, LP Psychotherapy 05/08/2025 Telephone [facility] [address] [place] [address] Felicia Weathers NP Follow Up 05/06/2025 Telephone [facility] [address] [place] [address] rEmelinda Pierre MD ACC Order Request 05/04/2025 11:15 AM CDT Telemedicine [facility] [address] [place] [address] Renita Pichardo PsyD, LP Psychotherapy 04/20/2025 11:15 AM CDT Telemedicine [facility] [address] [place] [address] Renita Pichardo PsyD, LP Psychotherapy 04/06/2025 11:15 AM CDT Telemedicine [facility] [address] [place] [address] Renita Pichardo PsyD, LP Psychotherapy 03/23/2025 11:15 AM CDT Telemedicine [facility] [address] [place] [address] Renita Pichardo PsyD, LP Psychotherapy; Trmt Plan from Last 3 Months [...] on file Legal Sex Female 5:23 AM UNION ORGANIZER Gender Identity Not on file Sexual Orientation [...] 36.2 C (97.1 F) 11/21/2023 9:09 AM UNION ORGANIZER Respiratory Rate 18 11/21/2023 9:09 AM UNION ORGANIZER Oxygen Saturation 98% 06/23/2024 10:48 AM CDT Inhaled Oxygen Concentration - - Weight 99.1 kg (218 lb 8 oz) 06/23/2024 10:48 AM CDT Height 172 cm (5' 7.72) 06/23/2024 10:48 AM CDT Body Mass Index 33.5 06/23/2024 10:48 AM CDT Plan of Treatment Upcoming Encounters Date Type Department Care Team (Late st Contact Info) Description 06/05/2025 1:00 PM CDT Telemedicine [facility] [address] [place] [address] Felicia Weathers NP [address] [place] [address] 06/08/2025 11:15 AM CDT Telemedicine [facility] [address] [place] [address] Renita Pichardo, MaocyD, LP 520 [facility] [address] [place] [address] 06/17/2025 1:00 PM CDT Telemedicine [facility] [address] [place] [address] Renita Pichardo PsyD, LP 520 [facility] [address] [place] [address] Health Maintenance Due Date Last Done Comments [...] CDT Need for hepatitis C screening test ADVERTISING OPERATIONS MANAGER THIN PREP PAP SCREEN IMAGED Routine 11/25/2013 11:15 AM UNION ORGANIZER Screening for malignant neoplasm of the cervix ANTI HIV 1/2 Routine 12/26/2010 5:05 PM UNION ORGANIZER Supervision of normal first (HC) from Last 3 Months or Most Recently Relevant to Health Maintenance Results * ANTI HCV (08/02/2023 1:57 PM CDT) HEPATITIS C ANTIBODY Non-Reacti ve Non-React nina 08/03/2023 3:36 PM CDT [facility] Comment:Please note, per www .CDC.gov: If [...] 1:57 PM CDT 08/02/2023 1:57 PM CDT us Estefany BLAND SEND OUTS Final Result [facility] SENDOUT INTERNAL ZIP [id number] [address] [place] [address] * ADVERTISING OPERATIONS MANAGER THIN PREP PAP SCREEN IMAGED (11/25/2013 11:15 AM UNION ORGANIZER) CYTOLOGY CYTOPATHOLOGY REPORT [facility] Status: Final Status [id number] CLINICAL INFORMATION Last Date of LMP :11/17/13 Last Pap Date :03/03/2011 Last Pap Result :NIL ABN [place]/Bx Past 5 YRS :None Hormone Usage :BCP/OCP/Patch/Rin g Menstrual Status :Regular Periods [place]/Bx done today :No Additional Information :None given [...] malignant lesions. COLLECTED:11/25/13 ACCESSIONED: 11/26/13 SIGNED: 12/02/13 [facility] PAP [place] CODE NIL [facility] Tissue specimen (specimen) (Cervical/Vagina l) 11/25/2013 11:15 AM UNION ORGANIZER 11/25/2013 11:12 AM UNION ORGANIZER us Cecile Costa PATHOLOGY/CYTOLOGY Final Resu lt [facility] INTERNAL ZIP [phone] [place] [id number] * ANTI HIV 1/2 (12/26/2010 5:05 PM UNION ORGANIZER) ANTI HIV 1/2 Non-reacti ve [facility] Blood specimen (specimen) BLOOD SPECIMEN / Unknown 12/26/2010 5:05 PM UNION ORGANIZER 12/26/2010 4:55 PM UNION ORGANIZER us Ladonna Nathan TANKER SERVICE ATTENDANT SEND OUTS Final Result [facility] INTERNAL ZIP [address] [address] from Last 3 Months or Most Recently Relevant to Health Maintenance Insurance MEDICARE [place] ONLY MEDICARE PART A HB ONLY MEDICARE PART B HB ONLY [facility] [place] [phone] (Home) ATTN: FRANK WHITE [id number] [id number] Care Teams Sports Clerk Relationship Specialty Start Date End Date Ermelinda Pierre MD [place] [address] PCP - General Family Practice 06/23/24 Antoinette Palacio, PhD, LP Psychologist Psychology 04/24/12 Gracia Rock CNS [address] [place] [address] Consulting Physician Clinical Nurse Specialist 07/07/[address] [place] [address] Registered Dietitian Precision Lens Grinder Apprentice 07/07/22 Staff, Other Clinical . Therapist Mental Health 07/03/22
--- NOTE | 2025-06-02 08:44 | CRLHL7_ITS ---
For Patients: As a result of the Century Cures Act, medical imaging exams and procedure reports are released immediately into your electronic medical record. You may view this report before your referring provider. If you have questions, please contact your health care provider. INDICATION: Chest pain COMPARISON: May 31, 2025 TECHNIQUE: PA and lateral views of the chest were acquired FINDINGS: TUBES AND LINES: None. HEART AND MEDIASTINUM: The heart size is normal. The mediastinal contour appears normal for patient age. LUNGS AND PLEURAL SPACES: The lungs appear normal.The pleural spaces are unremarkable. OSSEOUS STRUCTURES: Age-appropriate appearance. No acute focal finding. IMPRESSION: No evidence of active pulmonary disease. Dictated by Jose Carlos Currie MD @ 06/02/2025 9:07:49 AM (Electronically Signed)
--- NOTE | 2025-06-02 09:01 | ED.GENADULT ---
HPI - General Adult General Chief complaint: Chest Pain Stated complaint: chest pain Time Seen by Provider: 06/02/25 08:36 Source: patient Mode of arrival: ambulatory Limitations: no limitations History of Present Illness HPI narrative: 35 year old female presenting with chest pain one day post EGD. Pain started one day before her EGD. Now the pain is radiating into her throat. Patient had a full work up 2 days ago in this ER - no evidence of acute coronary syndrome, pneumonia, pericarditis, other lung pathology. She had a negative D-dimer. Pain today is not any worse, just moved into her throat and she was advised to come to the ER. She denies shortness of breath, diaphoresis, dizziness. She denies fevers or chills. She states that the pain is not bad enough to stop her from doing her daily physical activities. She denies difficulty breathing, speaking or swallowing. Related Data Home Medications ?Medication ?Instructions ?Recorded ?Confirmed duloxetine 60 mg capsule,delayed mg PO 08/06/22 release acyclovir 400 mg tablet 400 mg PO BID 05/31/25 06/02/25 aripiprazole 10 mg tablet 10 mg PO DAILY 05/31/25 06/02/25 buprenorphine 5 mcg/hour weekly 1 patch topical chronic pain 05/31/25 transdermal patch gabapentin 300 mg capsule mg PO 05/31/25 hydromorphone 1 mg/mL oral liquid 0.5 mg PO DAILY PRN pain 05/31/25 06/02/25 ketoconazole 2 % shampoo topical 05/31/25 ondansetron 4 mg disintegrating 4 - 8 mg PO Q8H PRN nausea/vomiting 05/31/25 06/02/25 tablet pantoprazole 40 mg tablet,delayed 40 mg PO BID 05/31/25 06/02/25 release penicillin V potassium 500 mg 500 mg PO BID 05/31/25 06/02/25 tablet posaconazole 100 mg tablet,delayed mg PO 05/31/25 release prochlorperazine maleate 10 mg 10 mg PO Q6H PRN 05/31/25 06/02/25 tablet Allergies Allergy/AdvReac Type Severity Reaction Status Date / Time grapefruit Allergy Intermediate other Verified 06/02/25 08:21 amoxicillin Allergy Mild other Verified 06/02/25 08:21 bupropion (From Wellbutrin) Allergy Mild other Verified 06/02/25 08:21 Review of Systems Status of ROS: Reports: 10 or more systems reviewed and unremarkable except as noted in History and below [facility] Social History Smoking Status: Never smoker Do you use any of these nicotine containing products: None Second hand tobacco smoke exposure: No How often do you have a drink containing alcohol: never How often do you have six or more drinks on one occasion: Never AUDIT-C Alcohol total score: 0 Non-prescribed substance use: denies use service: No Exam Narrative: Exam Narrative: Well-nourished well-developed patient in no acute distress. Alert and oriented. Answers questions appropriately. Slightly flat affect. Patient speaks in full sentences without needing to catch her breath. Voice sounds normal. No respiratory distress. HEENT: Normocephalic atraumatic. Pupils are equally round reactive to light. Extraocular muscles are intact. Conjunctivae are moist without any icterus noted. Moist mucous membranes. Posterior pharynx is normal. Neck is soft without any lymphadenopathy or thyromegaly. No masses are appreciated. Cardiovascular: Heart is regular rate and rhythm S1 and S2 are present without any murmurs. Lungs: Clear to auscultation bilaterally no wheezes rhonchi or rales are appreciated. Patient takes deep breaths without any discomfort. Mild tenderness with palpation of the anterior chest wall. Abdomen: Soft and nontender nondistended with normal bowel sounds. Const: Vital Signs, click to edit/add: Vital Signs - 24 hr 06/02/25 08:17 Temperature 97 F L Pulse Rate [Right Pulse Oximeter] 85 Respiratory Rate 18 Blood Pressure [Ri ght Upper Arm] 143/102 H Pulse Oximetry 98 Oxygen Delivery Me thod Room Air Course Course ED Course: EKG was done upon arrival. This was read by me, showing normal sinus rhythm with sinus arrhythmia. Pulse is 77, normal QRS, QTC and MO intervals. We also did a chest x-ray to today to make sure there is no abnormalities noted postprocedure. This was unremarkable. Vital Signs Vital signs: Initial Vital Signs Temperature 97 F L 06/02/25 08:17 Temperature Source Temporal Artery Scan 06/02/25 08:17 Pulse Rate 85 06/02/25 08:17 Pulse Rhythm Regular 06/02/25 08:17 Pulse Strength 3+ Normal 06/02/25 08:17 Respiratory Rate 18 06/02/25 08:17 Blood Pressure 143/102 H 06/02/25 08:17 Blood Pressure Mean 115 H 06/02/25 08:17 Blood Pressure Position Sitting 06/02/25 08:17 Pulse Oximetry 98 06/02/25 08:17 Oxygen Delivery Method Room Air 06/02/25 08:17 Vital Signs Temperature 97 F L 06/02/25 08:17 Pulse Rate 85 06/02/25 08:17 Respiratory Rate 18 06/02/25 08:17 Blood Pressure 143/102 H 06/02/25 08:17 Pulse Oximetry 98 06/02/25 08:17 Oxygen Delivery Method Room Air 06/02/25 08:17 Temperature 97 F L 06/02/25 08:17 Pulse Rate 85 06/02/25 08:17 Respiratory Rate 18 06/02/25 08:17 Blood Pressure 143/102 H 06/02/25 08:17 Pulse Oximetry 98 06/02/25 08:17 Oxygen Delivery Method Room Air 06/02/25 08:17 Medical Decision Making MDM Narrative Medical decision making narrative: 35-year-old female with continued chest pain-symptoms and workup not consistent with acute coronary syndrome. Workup 2 days ago remarkable. Some anterior chest wall discomfort with palpation consistent with musculoskeletal discomfort. Pain now radiating into her neck consistent with postprocedural irritation. We discussed symptomatic treatment reasons for follow-up. Imaging Data Chest x-ray: Attestation: I have reviewed the pertinent imaging results. Radiologist's impression: TECHNIQUE: PA and lateral views of the chest were acquired FINDINGS: TUBES AND LINES: None. HEART AND MEDIASTINUM: The heart size is normal. The mediastinal contour appears normal for patient age. LUNGS AND PLEURAL SPACES: The lungs appear normal.The pleural spaces are unremarkable. OSSEOUS STRUCTURES: Age-appropriate appearance. No acute focal finding. IMPRESSION: No evidence of active pulmonary disease. Discharge Plan Discharge Clinical Impression: Atypical chest pain Patient Disposition: Home, Self-Care Condition: Stable Prescriptions: No Action duloxetine 60 mg capsule,delayed release(DR/EC) PO acyclovir 400 mg tablet 400 mg PO BID gabapentin 300 mg capsule PO aripiprazole 10 mg tablet 10 mg PO DAILY buprenorphine 5 mcg/hour patch weekly 1 patch topical ketoconazole 2 % shampoo topical penicillin V potassium 500 mg tablet 500 mg PO BID prochlorperazine maleate 10 mg tablet 10 mg PO Q6H PRN pantoprazole 40 mg tablet,delayed release (DR/EC) 40 mg PO BID ondansetron 4 mg tablet,disintegrating 4 - 8 mg PO Q8H PRN (Reason: nausea/vomiting) hydromorphone 1 mg/mL liquid 0.5 mg PO DAILY PRN (Reason: pain) posaconazole 100 mg tablet,delayed release (DR/EC) PO Follow Up/Referrals: Anny Matthews NP [Primary Care Provider, Family Practice] Stand Alone Forms: [facility] Info Instructions
== END 2025-06-02 09:26 | disposition home or self-care (01) ==
PROVIDERS: Emergency Provider Family Medicine; PCP Registered Nurse
DX: R07.9 Chest pain, unspecified (principal)
CPT/HCPCS: 71046; 93005; 99284

== ENCOUNTER 2025-06-04 18:28 | Emergency (ER) | payer MEDICARE, BC, SELFPAY ==
[2025-06-04 18:47] VITALS: BP 125/88; PULSE 99; RESP 16; TEMP 36.6; O2SAT 97; BMI 33.6
--- NOTE | 2025-06-04 20:23 | CRLHL7_ITS ---
For Patients: As a result of the Century Cures Act, medical imaging exams and procedure reports are released immediately into your electronic medical record. You may view this report before your referring provider. If you have questions, please contact your health care provider. INDICATION: Chest pain. TECHNIQUE: Chest 2 views. COMPARISON: None. FINDINGS: Cardiovascular and mediastinum: Heart size and vasculature are normal in caliber and appearance. Lungs and pleural spaces: Lungs are clear. No sign of infiltrate or mass. No sign of pleural effusion. No pneumothorax. Bones and soft tissues: No significant findings. IMPRESSION: No acute or significant findings. Dictated by Mohan Jon MD @ 06/04/2025 9:00:11 PM (Electronically Signed)
[2025-06-04 20:48] LABS: Hematocrit* 37.4 % (33.0-51.0); Hemoglobin* 12.4 gm/dL (12.0-16.0); Immature Granulocytes Abs Auto 0.08 K/uL (0.00-0.30); Immature Granulocytes Pct Auto 1.6 %; Mean Corpuscular HGB Conc 33 gm/dL (32-36); Mean Corpuscular Hemoglobin 28 pg (26-34); Mean Corpuscular Volume 83 fL (80-100); RDW Coefficient of Variation % 13.6 % (11.5-15.5); Red Blood Count* 4.51 m/uL (4.00-5.20); White Blood Count* 5.07 K/uL (4.50-11.00)
[2025-06-04 20:49] LABS: Troponin, Point-of-Care* 0.00 ng/ml (0.01-0.04)
[2025-06-04 20:50] LABS: Lymphocytes Absolute Auto 0.90 K/uL (0.90-2.90); Slide Review Reflex No
--- OUTSIDE RECORDS SUMMARY | 2025-06-04 20:51 | XMS_ITS | Clinical Summary ---
Author Organization [facility] Address [address] [place] [address] Care Team Providers Care Forest Practices Field Coordinator Name Role Phone System, Provider Not In [...] Description 07/07/2025 2:40 PM CDT Office Visit [address] [place] [phone] Madeleine Roberts MD [address] [place] [address] [place] [phone] Health Maintenance Due Date Last Done Comments [...] HEPATITIS C SCREENING Completed 08/02/2023, 019 Insurance [facility] MED[facility] MED[facility] Care Teams Forest Practices Field Coordinator Relationship Specialty Start Date End Date System, Provider Not In PCP - General Clinic 06/08/22
--- OUTSIDE RECORDS SUMMARY | 2025-06-04 20:52 | XMS_ITS | Clinical Summary ---
Author Organization [facility] Address [address] [place] [address] Care Team Providers Care Office Machine Mechanic Name Role Phone Antoinette Palacio PhD, LP Unavailable [phone] Shweta Graciakim Huber TABLE OPERATOR Unavailable [phone] Unavailable [phone] Staff, Other Clinical Unavailable UnavailErmelinda Cadet MD [...] Team Description 06/01/2025 8:45 AM CDT Telemedicine [facility] [address] [place] [address] Renita Pichardo PsSudeep, LP Psychotherapy 05/29/2025 Telephone [facility] [address] [place] [address] Iris Victor, [facility] Care Coordination (Re Engagement ) 05/28/2025 Telephone [facility] [address] [place] [address] Renita Pichardo PsyD, FIDENCIO FYI (Regarding appointment) 05/20/2025 1:45 PM CDT Telemedicine [facility] [address] [place] [address] Renita Pichardo PsyD, LP Psychotherapy 05/12/2025 1:45 PM CDT Telemedicine [facility] [address] [place] [address] Renita Pichardo PsyD, LP Psychotherapy 05/08/2025 Telephone [facility] [address] [place] [address] Felicia Weathers NP Follow Up 05/06/2025 Telephone [facility] [address] [place] [address] Ermelinda Pierre MD ACC Order Request 05/04/2025 11:15 AM CDT Telemedicine [facility] [address] [place] [address] Renita Pichardo PsyD, LP Psychotherapy 04/20/2025 11:15 AM CDT Telemedicine [facility] [address] [place] [address] Renita Pichardo PsyD, LP Psychotherapy 04/06/2025 11:15 AM CDT Telemedicine [facility] [address] [place] [address] Renita Pichardo PsyD, LP Psychotherapy 03/23/2025 11:15 AM CDT Telemedicine [facility] [address] [place] [address] Renita Pichardo PsyD, LP Psychotherapy; Trmt Plan [...] on file Legal Sex Female 5:23 AM PHILOSOPHY LECTURER Gender Identity Not on file Sexual Orientation [...] 36.2 C (97.1 F) 11/21/2023 9:09 AM PHILOSOPHY LECTURER Respiratory Rate 18 11/21/2023 9:09 AM PHILOSOPHY LECTURER Oxygen Saturation 98% 06/23/2024 10:48 AM CDT Inhaled Oxygen Concentration - - Weight 99.1 kg (218 lb 8 oz) 06/23/2024 10:48 AM CDT Height 172 cm (5' 7.72) 06/23/2024 10:48 AM CDT Body Mass Index 33.5 06/23/2024 10:48 AM CDT Plan of Treatment Upcoming Encounters Date Type Department Care Team (Late st Contact Info) Description 06/05/2025 1:00 PM CDT Telemedicine [facility] [address] [place] [address] Felicia Weathers NP [address] [place] [address] 06/08/2025 11:15 AM CDT Telemedicine [facility] [address] [place] [address] Renita Pichardo, MacoyD, LP [address] [facility] [address] [place] [address] 06/17/2025 1:00 PM CDT Telemedicine [facility] [address] [place] [address] Renita Pichardo PsyD, LP [address] [facility] [address] [place] [address] Health Maintenance Due Date Last Done Comments [...] CDT Need for hepatitis C screening test CAD SPECIALIST THIN PREP PAP SCREEN IMAGED Routine 11/25/2013 11:15 AM PHILOSOPHY LECTURER Screening for malignant neoplasm of the cervix ANTI HIV 1/2 Routine 12/26/2010 5:05 PM PHILOSOPHY LECTURER Supervision of normal first (HC) from Last 3 Months or Most Recently Relevant to Health Maintenance Results * ANTI HCV (08/02/2023 1:57 PM CDT) HEPATITIS C ANTIBODY Non-Reacti ve Non-React nina 08/03/2023 3:[address] [facility] Comment:Please note, per www .CDC.gov: If [...] us Estefany BLAND SEND OUTS Final Result [facility] SENDOUT INTERNAL ZIP [id number] [address] [place] [address] * CAD SPECIALIST THIN PREP PAP SCREEN IMAGED (11/25/2013 11:15 AM PHILOSOPHY LECTURER) CYTOLOGY CYTOPATHOLOGY REPORT [facility] Status: Final Status [id number] CLINICAL INFORMATION Last Date of LMP :11/17/13 Last Pap Date :03/03/2011 Last Pap Result :NIL ABN [place]/Bx Past 5 YRS :None Hormone Usage :BCP/OCP/Patch/Rin g Menstrual Status :Regular Periods [place]/Bx done today :No Additional Information :None given [...] malignant lesions. COLLECTED:11/25/13 ACCESSIONED: 11/26/13 SIGNED: 12/02/13 [facility] PAP [place] CODE NIL [facility] Tissue specimen (specimen) (Cervical/Vagina l) 11/25/2013 11:15 AM PHILOSOPHY LECTURER 11/25/2013 11:12 AM PHILOSOPHY LECTURER us Cecile Costa PATHOLOGY/CYTOLOGY Final Resu lt [facility] INTERNAL ZIP [address] [place] [address] * ANTI HIV 1/2 (12/26/2010 5:05 PM PHILOSOPHY LECTURER) ANTI HIV 1/2 Non-reacti ve [facility] Blood specimen (specimen) BLOOD SPECIMEN / Unknown 12/26/2010 5:05 PM PHILOSOPHY LECTURER 12/26/2010 4:55 PM PHILOSOPHY LECTURER us Ladonna Nathan DISK SANDER SEND OUTS Final Result [facility] INTERNAL ZIP [address] [address] from Last 3 Months or Most Recently Relevant to Health Maintenance Insurance MEDICARE [place] ONLY MEDICARE PART A [place] ONLY MEDICARE PART B HB ONLY [facility] [place] [phone] (Home) ATTN: FRANK WHITE [id number] [id number] Care Teams Office Machine Mechanic Relationship Specialty Start Date End Date Ermelinda Pierre MD [address] [place] [address] PCP - General Family Practice 06/23/24 Antoinette Palacio, PhD, LP Psychologist Psychology 04/24/12 Gracia Rock CNS [address] [place] [address] Consulting Physician Clinical Nurse Specialist 07/07/[address] [place] [address] Registered Dietitian Blintze Roller 07/07/22 Staff, Other Clinical . Therapist Mental Health 07/03/22
[2025-06-04 21:01] LABS: Chloride* 103 mmol/L (96-114); Potassium* 3.6 mmol/L (3.6-5.1); Sodium* 136 mmol/L (135-149)
[2025-06-04 21:04] LABS: Anion Gap 7 mEq/L (7-15); Blood Urea Nitrogen* 8 mg/dL (5-24); Calcium* 9.2 mg/dL (8.4-10.6); Carbon Dioxide* 26 mmol/L (20-32); Creatinine* 0.8 mg/dL (0.5-1.5); Est. Creatinine Clearance* 98.07; Estimated Glomerular Filt Rate 98 ml/min; Glucose* 106 mg/dL (60-115)
[2025-06-04 21:08] LABS: D Dimer Quantitative* < 0.27 ug/ml (0.00-0.50)
[2025-06-04 21:36] LABS: PCR FLU A Negative PCR FLU A (Negative); PCR FLU B Negative PCR FLU B (Negative); PCR RSV Negative PCR RSV (Negative); SARS PCR* Negative SARS-CoV-2 (Negative)
[2025-06-04 21:44] VITALS: BP 122/74; PULSE 84; RESP 16; TEMP 36.6; O2SAT 97
--- NOTE | 2025-06-04 21:59 | ED_ITS ---
HPI - Chest Pain General Date Seen: 06/04/25 Chief Complaint: Chest Pain Stated Complaint: chest pain Time Seen by Provider: 06/04/25 20:11 Source: patient Mode of arrival: ambulatory Limitations: no limitations History of Present Illness HPI narrative: Patient is a 35-year-old female with a history of CML who had a bone marrow transplant done in November of this year presenting to the emergency department for chest pain. She states today around 330 she started developing some chest pain that occurred randomly while she was at rest. She states intensity was notable from the start. She has been seen multiple times for this chest pain in the past and states she was told to come to the emergency department remember she gets chest pain. Typically the chest pain only last for 10 15 minutes with this time has been more persistent has been going on for several hours. She states she feels the chest pain is deep in to her midsternal chest region. Denies any fevers or chills. Is on some hormonal control. Denies any recent surgeries. Denies is shortness of breath, abdominal pain, headache, vision changes, weakness, numbness is. Tried some Pepto-Bismol home without any improvement in the symptoms. No other concerns noted. Related Data Home Medications ?Medication ?Instructions ?Recorded ?Confirmed duloxetine 60 mg capsule,delayed mg PO 08/06/22 release acyclovir 400 mg tablet 400 mg PO BID 05/31/2506/02 aripiprazole 10 mg tablet 10 mg PO DAILY 05/31/2505/19 buprenorphine 5 mcg/hour weekly 1 patch topical chroni c pain 05/31/25 transdermal patch gabapentin 300 mg capsule mg PO 05/31/25 hydromorphone 1 mg/mL oral liquid 0.5 mg PO DAILY PRN pain 05/31/25 06/02/25 ketoconazole 2 % shampoo topical 05/31/25 ondansetron 4 mg disintegrating 4 - 8 mg PO Q8H PRN na usea/vomiting 05/31/25 06/02/25 tablet pantoprazole 40 mg tablet,delayed 40 mg PO BID 5 06/02/25 release penicillin V potassium 500 mg 500 mg PO BID 05/31/25 0 06/02/25 tablet posaconazole 100 mg tablet,delayed mg PO 05/31/25 release prochlorperazine maleate 10 mg 10 mg PO Q6H PRN 06/02/25 tablet Allergies Allergy/AdvReac Type Severity Reaction Status Date / Time grapefruit Allergy Intermediate other Verified 06/02/25 08:21 amoxicillin Allergy Mild other Verified 06/02/25 08:21 bupropion (From Wellbutrin) Allergy Mild other Verified 06/02/25 08:21 Review of Systems Status of ROS Reports: 10 or more systems reviewed and unremarkable except as noted in History and below PFSH PFS Social History Smoking Status: Never smoker Do you use any of these nicotine containing products: None Second hand tobacco smoke exposure: No How often do you have a drink containing alcohol: never How often do you have six or more drinks on one occasion: Never AUDIT-C Alcohol total score: 0 Non-prescribed substance use: denies use service: No Exam Narrative Exam Narrative: Const: Well-nourished, Well-developed, in mild distress Eyes: PERRL, no conjunctival injection, and symmetrical lids HENT: Atraumatic external nose and ears. Moist mucous membranes. Neck: Symmetric, trachea midline, No thyromegaly. CVS: RRR, No murmurs or gallops. Peripheral pulses 2+ and equal in all extremities RESP: Unlabored respiratory effort. Clear to auscultation bilaterally. GI: Nontender/Nondistended, No rebound or guarding. MSK:Extremities w/o deformity, Normal Active ROM, tenderness to chest that almost exactly reproduces her pain Skin: Warm, Dry. No rashes or lesions. Neuro: Normal Muscle tone, No focal neurological deficits. Psych: Awake, Alert, & Oriented x3. Appropriate mood and affect. Const Vital Signs, click to edit/add: Vital Signs - 24 hr 06/04/25 18:47 06/04/25 21:44 Temperature 97.8 F 97.8 F Pulse Rate [Pulse Oximeter] 99 84 Respiratory Rate 16 16 Blood Pressure [Right Upper Arm] 125/88 122/74 Pulse Oximetry 97 97 Oxygen Delivery Method Room Air Room Air Course Vital Signs Vital signs: Initial Vital Signs Temperature 97.8 F 06/04/25 18:47 Temperature Source Temporal Artery Scan 06/04/25 18:47 Pulse Rate 99 06/04/25 18:47 Respiratory Rate 16 06/04/25 18:47 Blood Pressure 125/88 06/04/25 18:47 Blood Pressure Mean 100 06/04/25 18:47 Blood Pressure Position Sitting 06/04/25 18:47 Pulse Oximetry 97 06/04/25 18:47 Oxygen Delivery Method Room Air 06/04/25 18:47 Vital Signs Temperature 97.8 F 06/04/25 18:47 Pulse Rate 99 06/04/25 18:47 Respiratory Rate 16 06/04/25 18:47 Blood Pressure 125/88 06/04/25 18:47 Pulse Oximetry 97 06/04/25 18:47 Oxygen Delivery Method Room Air 06/04/25 18:47 Temperature 97.8 F 06/04/25 21:44 Pulse Rate 84 06/04/25 21:44 Respiratory Rate 16 06/04/25 21:44 Blood Pressure 122/74 06/04/25 21:44 Pulse Oximetry 97 06/04/25 21:44 Oxygen Delivery Method Room Air 06/04/25 21:44 MDM - Chest Pain MDM Narrative Medical decision making narrative: Patient is a 35-year-old female presenting for chest pain. The differential diagnosis of chest pain is broad and includes common etiologies such as m usculoskeletal strain, GERD, pneumonia, etc. More serious etiologies considered include PE, coronary artery disease, pneumothorax, aortic dissection, aortic aneurysm. She looks otherwise stable my concern for aortic dissection and aortic aneurysm a low. She does have a history of cancer and I will do a D- dimer to check for signs of PE. Of note she did have a normal D-dimer four days ago. Also EKG and troponins. Chest x-ray ordered to look for signs pneumonia or pneumothorax. This could very well be just musculoskeletal in nature as symptoms were reproducible with palpation. EKG, CBC, BMP, viral swabs, magnesium, D-dimer, troponin all ordered. Lab work all returned showing no acute concerning abnormalities. Viral swabs are negative. EKG shows no concerning findings. Considering how long symptoms have been going on for do not believe repeat troponin is necessary. Chest x-ray reviewed by myself the radiologist shows no acute concerning abnormalities. This time I believe she is safe for discharge and she is agreeable to this plan. Symptoms are likely musculoskeletal in nature. Lab Data Labs: Lab Results 06/04/25 Range/Units 20:30 WBC 5.07 (4.50-11.00) K/uL RBC 4.51 (4.00-5.20) m/uL Hgb 12.4 (12.0-16.0) gm/dL Hct 37.4 (33.0-51.0) % MCV 83 (80-100) fL MCH 28 (26-34) pg MCHC 33 (32-36) gm/dL RDW Coeff of [place] 13.6 (11.5-15.5) % Plt Count 200 (140-440) K/uL Neut % (Auto) 68.8 (42.0-72.0) % Lymph % (Auto) 18.7 L (20-44) % Churchill % (Auto) 8.5 (0.0-11.0) % Eos % (Auto) 2.2 (0.0-7.0) % Baso % (Auto) 0.2 (0.0-3.0) % Neut # (Auto) 3.49 (1.7-7.0) K/uL Lymph # (Auto) 0.90 (0.90-2.90) K/uL Churchill # (Auto) 0.40 (0.00-0.90) K/UL Eos # (Auto) 0.11 (0.00-0.50) K/uL Baso # (Auto) 0.01 (0.00-0.30) K/uL Abs Immat Gran (auto) 0.08 (0.00-0.30) K/uL Imm/Tot Granulo (auto) 1.6 % D-Dimer Quant (PE/DVT) < 0.27 (0.00-0.50) ug/ml Sodium 136 (135-149) mmol/L Potassium 3.6 (3.6-5.1) mmol/L Chloride 103 (96-114) mmol/L Carbon Dioxide 26 (20-32) mmol/L Anion Gap 7 (7-15) mEq/L BUN 8 (5-24) mg/dL Creatinine 0.8 (0.5-1.5) mg/dL Estimated Creat Clear 98.07 Estimated GFR 98 ml/min Glucose 106 (60-115) mg/dL Calcium 9.2 (8.4-10.6) mg/dL Magnesium 2.3 (1.5-2.6) mg/dL SARS-CoV-2 (PCR) Negative SARS-CoV-2 (Negative) Influenza Type A (PCR) Negative PCR FLU A (Negative) Influenza Type B (PCR) Negative PCR FLU B (Negative) RSV (PCR) Negative PCR RSV (Negative) POC Troponin I 0.00 L (0.01-0.04) ng/ml Imaging Data Chest x-ray: Attestation: I have reviewed the pertinent imaging results. Radiologist's impression: No acute or significant findings. Dictated by Mohan Jon MD @ 06/04/2025 9:00:11 PM ECG Data Attestation: I personally reviewed and interpreted this ECG as follows: Prior ECG tracings: available for review Interpretation: Normal sinus rhythm with rate 92 beats per minute, normal intervals, normal axis, no ST or T-wave abnormalities. Appears similar previous EKGs on file. Discharge Plan Discharge Clinical Impression: Atypical chest pain Patient Disposition: Home, Self-Care Condition: Stable Instructions: Chest Wall Pain (ED) Additional Instructions: I believe the symptoms are all related to musculoskeletal pain as the tenderness was reproducible when I pushed on her chest. I do not see any emergent issues at this time. Please follow-up with your primary care provider. Return for new or worsening symptoms. Prescriptions: No Action duloxetine 60 mg capsule,delayed release(DR/EC) PO acyclovir 400 mg tablet 400 mg PO BID gabapentin 300 mg capsule PO aripiprazole 10 mg tablet 10 mg PO DAILY buprenorphine 5 mcg/hour patch weekly 1 patch topical ketoconazole 2 % shampoo topical penicillin V potassium 500 mg tablet 500 mg PO BID prochlorperazine maleate 10 mg tablet 10 mg PO Q6H PRN pantoprazole 40 mg tablet,delayed release (DR/EC) 40 mg PO BID ondansetron 4 mg tablet,disintegrating 4 - 8 mg PO Q8H PRN (Reason: nausea/vomiting) hydromorphone 1 mg/mL liquid 0.5 mg PO DAILY PRN (Reason: pain) posaconazole 100 mg tablet,delayed release (DR/EC) PO Follow Up/Referrals: Anny Matthews ORTHO TECH [Primary Care Provider, Family Practice] Stand Alone Forms: Crittercism Info Instructions
[2025-06-04 22:35] VITALS: BP 122/74; PULSE 84; RESP 16; TEMP 36.6
== END 2025-06-04 22:35 | disposition home or self-care (01) ==
PROVIDERS: Emergency Provider Student in an Organized Health Care Education/Training Program; PCP Registered Nurse
DX: R07.9 Chest pain, unspecified (principal)
CPT/HCPCS: 36415; 71046; 80048; 83735; 84484; 85025; 85379; 87637; 93005; 99284

== ENCOUNTER 2025-06-08 13:04 | Emergency (ER) | payer MEDICARE, BC, SELFPAY ==
--- OUTSIDE RECORDS SUMMARY | 2025-06-08 13:06 | XMS_ITS | Clinical Summary ---
Author Organization [facility] Address [address] [place] [address] Care Team Providers Care Ict Sales Assistant Name Role Phone System, Provider Not In [...] Description 07/07/2025 2:40 PM CDT Office Visit [address] [place] [phone] Madeleine Roberts MD [address] [place] [address] [place] [phone] Health Maintenance Due Date Last Done Comments [...] year) 2024 11/23/2022 , 06/08/2022 INFLUENZA VACCINE (#1) 2025 9, 09/02/2012, 08/14/2011, Additional history exists HEPATITIS B VACCINE Completed 03/07/2001, 02/19/2001, 10/31/2000, Additional history exists MENINGITIS VACCINE Completed 04/26/2007 HPV VACCINE Completed 11/08/2007, 07/2007, 04/26/2007 HIV SCREENING Completed 12/26/2010 HEPATITIS C SCREENING Completed 08/02/2023, 019 Insurance [facility] MEDICARE [facility] MEDICARE Care Teams Ict Sales Assistant Relationship Specialty Start Date End Date System, Provider Not In PCP - General Clinic 06/08/22
--- OUTSIDE RECORDS SUMMARY | 2025-06-08 13:06 | XMS_ITS | Clinical Summary ---
Author Organization [facility] Address [address] [place] [address] Care Team Providers Care Rigging Foreman Name Role Phone Antoinette Palacio PhD, LP Unavailable [phone] Shweta Graciakim Huber [employer] FARMWORK[employer] Unavailable [phone] Unavailable [phone] Staff, Other Clinical Unavailable UnavailErmelinda Cadet MD [...] Anxiety. 90 Tablet 3 06/23/20 24 Active buprenorphine 5 mcg/hr (BUTRANS) 5 mcg/hour transdermal patch Apply 1 Patch on dry, clean, hairless skin once weekly. 06/05/20 25 Active DULoxetine (CYMBALTA) 60 mg Delayed-release capsuleIndications :MDD (major depressive disorder), recurrent episode, moderate (HC) Take 2 Capsules (120 mg) by mouth once daily. 180 Capsule 1 06/05/20 25 Active ARIPiprazole (Abilify) 10 mg tabletIndications: MDD (major depressive disorder), recurrent episode, moderate (HC) Take 1 Tablet (10 mg) by mouth once daily. 90 Tablet 06/05/20 25 Active DULoxetine (CYMBALTA) 60 mg Delayed-release capsuleIndications :MDD (major depressive disorder), recurrent episode, moderate (HC) Take 2 Capsules (120 mg) by mouth once daily. 60 Capsule 2 07/14/20 24 025 Discontin ued(Reord er (E-cancel not sent)) Active Problems Problem Noted Date Diagnosed Date [...] Encounters Date Type Department Care Team Description 06/08/2025 Nurse Triage [facility] [address] [place] [address] Ermelinda Pierre MD Appointment 06/05/2025 1:00 PM CDT Telemedicine [facility] [address] [place] [address] Felicia Weathers NP Follow Up; Medication Management; Telehealth 06/05/2025 Travel 06/01/2025 8:45 AM CDT Telemedicine [facility] [address] [place] [address] Renita Pichardo PsyD, LP Psychotherapy 05/29/2025 Telephone [facility] [address] [place] [address] Iris Victor [facility] Care Coordination (Re Engagement ) 05/28/2025 Telephone [facility] [address] [place] [address] Renita Pichardo PsyD, LP FYI (Regarding appointment) 05/20/2025 1:45 PM CDT Telemedicine [facility] [address] [place] [address] Renita Pichardo PsyD, LP Psychotherapy 05/12/2025 1:45 PM CDT Telemedicine [facility] [address] [place] [address] Renita Pichardo PsyD, LP Psychotherapy 05/08/2025 Telephone [facility] [address] [place] [address] Felicia Weathers, MUSTAPHA Follow Up 05/06/2025 Telephone [facility] [address] [place] [address] Ermelinda Pierre MD ACC Order Request 05/04/2025 11:15 AM CDT Telemedicine [facility] [address] [place] [address] Renita Pichardo PsyD, LP Psychotherapy 04/20/2025 11:15 AM CDT Telemedicine [facility] [address] [place] [address] Renita Pichardo PsyD, LP Psychotherapy 04/06/2025 11:15 AM CDT Telemedicine [facility] [address] [place] [address] Renita Pichardo PsyD, LP Psychotherapy 03/23/2025 11:15 AM CDT Telemedicine [facility] [address] [place] [address] Renita Pichardo PsyD, LP [facility] Immunizations Immunization [...] Answer Date Recorded PHQ-2 TOTAL SCORE 6 06/05/2025 Social Connections Answer Date Recorded Frequency of [...] on file Legal Sex Female 5:23 AM SITE COORDINATOR Gender Identity Not on file Sexual Orientation [...] 36.2 C (97.1 F) 11/21/2023 9:09 AM SITE COORDINATOR Respiratory Rate 18 11/21/2023 9:09 AM SITE COORDINATOR Oxygen Saturation 98% 06/23/2024 10:48 AM CDT Inhaled Oxygen Concentration - - Weight 99.1 kg (218 lb 8 oz) 06/23/2024 10:48 AM CDT Height 172 cm (5' 7.72) 06/23/2024 10:48 AM CDT Body Mass Index 33.5 06/23/2024 10:48 AM CDT Plan of Treatment Upcoming Encounters Date Type Department Care Team (Late st Contact Info) Description 06/17/2025 1:00 PM CDT Telemedicine [facility] [address] [place], [place] [address] Renita Pichardo PsyD, FIDENCIO [address] [phone] 06/22/2025 11:15 AM CDT Telemedicine [facility] [address] [place] [address] Renita Pichardo PsyD, LP [address] [place] [address] 06/29/2025 11:15 AM CDT Telemedicine [facility] [address] [place] [address] Renita Pichardo PsyD, LP [address] [place] [address] 08/28/2025 1:00 PM CDT Telemedicine [facility] [address] [place] [address] Felicia Weathers, [place]APHA [address] [place] [address] Health Maintenance Due Date Last Done Comments Pneumococcal series for age 6-49 (1 of 2 - PCV) 02/03/2008 Tetanus booster 09/02/2022 09/02/2012, 07/10/2003 Pap test for age 21-65 10/15/2022 9 (Verified in Care Everywhere or Patient Record), 11/25/2013, 03/03/2011, Additional history exists COVID-19 vaccine series (2023- season) 2024 11/10/2021, 03/30/2021, 03/02/2021 BMI (ht and wt on same day) for age 18+ 06/23/2025 06/23/2024, 02/15/2023, 09/19/2022, Additional history exists Influenza Vaccine (#1) 2025 9, 09/02/2012, 09/02/2012, Additional history exists Depression screening for age 12+ 06/05/2026 06/05/2025, 10/02/2024, 09/30/2024, Additional history exists Hepatitis B series for 19+ Completed 03/07, 02/19/2001, 10/31/2000, Additional history exists HIV for age 15-65 Completed 12/26/2010 Hepatitis C screening for ag e 18-79 Completed 08/02/2023 Procedures Procedure Name Priority Date/Time Associated Diagnosis Comments ANTI HCV Routine 08/02/2023 1:57 PM CDT Need for hepatitis C screening test ASSISTANT ADMINISTRATOR THIN PREP PAP SCREEN IMAGED Routine 11/25/2013 11:15 AM SITE COORDINATOR Screening for malignant neoplasm of the cervix ANTI HIV 1/2 Routine 12/26/2010 5:05 PM SITE COORDINATOR Supervision of normal first (HC) from Last 3 Months or Most Recently Relevant to Health Maintenance Results * ANTI HCV (08/02/2023 1:57 PM CDT) HEPATITIS C ANTIBODY Non-Reacti ve Non-React nina 08/03/2023 3:36 PM CDT [facility] Comment:Please note, per www .CDC.gov: [...] CDT Estefany BLAND SEND OUTS Final Result [facility] SENDOUT INTERNAL [facility] [address] [place] [address] * ASSISTANT ADMINISTRATOR THIN PREP PAP SCREEN IMAGED (11/25/2013 11:15 AM SITE COORDINATOR) CYTOLOGY CYTOPATHOLOGY REPORT [facility] Status: Final Status [id number] CLINICAL INFORMATION Last Date of LMP :11/17/13 Last Pap Date :03/03/2011 Last Pap Result :NIL ABN Bandy/Bx Past 5 YRS :None Hormone Usage :BCP/OCP/Patch/Rin g Menstrual Status :Regular Periods Bandy/Bx done today :No Additional Information :None given [...] malignant lesions. COLLECTED:11/25/13 ACCESSIONED: 11/26/13 SIGNED: 12/02/13 [facility] PAP [place] CODE NIL [facility] Tissue specimen (specimen) (Cervical/Vagina l) 11/25/2013 11:15 AM SITE COORDINATOR 11/25/2013 11:12 AM SITE COORDINATOR Cecile Costa PATHOLOGY/CYTOLOGY Final Resu lt [facility] INTERNAL ZIP [address] [place] [address] * ANTI HIV 1/2 (12/26/2010 5:05 PM SITE COORDINATOR) ANTI HIV 1/2 Non-reacti ve [facility] Blood specimen (specimen) BLOOD SPECIMEN / Unknown 12/26/2010 5:05 PM SITE COORDINATOR 12/26/2010 4:55 PM SITE COORDINATOR us Ladonna Nathan NP SEND OUTS Final Result [facility] INTERNAL ZIP [address] [address] from Last 3 Months or Most Recently Relevant to Health Maintenance Insurance MEDICARE PB ONLY MEDICARE PART A HB ONLY MEDICARE PART B HB ONLY [facility] [phone] (Home) ATTN: FRANK WHITE [phone] [id number] Care Teams Rigging Foreman Relationship Specialty Start Date End Date Ermelinda Pierre [place] [place] [address] PCP - General Family Practice 06/23/24 Antoinette Palacio, PhD, LP Psychologist Psychology 04/24/12 Gracia Rock CNS [address] [place] [address] Consulting Physician Clinical Nurse Specialist 07/07/[address] [place] [address] Registered Dietitian Special Education Resource Room Teacher 07/07/22 Staff, Other Clinical . Therapist Mental Health 07/03/22
[2025-06-08 13:07] VITALS: BP 129/88; PULSE 86; RESP 16; TEMP 36.2; O2SAT 97; BMI 33.5
--- NOTE | 2025-06-08 13:23 | CRLHL7_ITS ---
For Patients: As a result of the 21st Century Cures Act, medical imaging exams and procedure reports are released immediately into your electronic medical record. You may view this report before your referring provider. If you have questions, please contact your health care provider. INDICATION: Chest pain, left upper quadrant abdominal pain, nausea, weakness and loss of appetite. 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 TECHNIQUE: CT chest, abdomen and pelvis acquired with 108 cc Isovue 370 intravenous contrast. COMPARISON: Abdomen and pelvis CT 12/10/2018 FINDINGS: CHEST: Cardiovascular structures: Thoracic aorta is normal in caliber. 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 Mediastinum and virginia: No mass or adenopathy. Lungs and pleura: Lungs and pleural spaces are clear. No suspicious nodules, infiltrates, or effusions. Chest wall and axilla: No mass or adenopathy. Bones: No suspicious bone lesions. Unremarkable for age. ABDOMEN AND PELVIS: Liver: Unremarkable. Gallbladder and bile ducts: Unremarkable. Pancreas: Unremarkable. Spleen: Unremarkable. Adrenal glands: Unremarkable. Kidneys: Unremarkable. GI tract: The stomach is unremarkable. No dilated loops of large or small intestine. Appendix unremarkable. Vascular structures: Unremarkable. Lymph nodes: Unremarkable. Miscellaneous: Unremarkable. No free air or significant free fluid. Pelvic Organs: Unremarkable. Bones: Degenerative disc disease L5-S1. IMPRESSION: Unremarkable chest, abdomen and pelvis CT. No findings to explain the patient`s symptoms. Please note that all CT scans at this facility use dose modulation, iterative reconstruction, and/or weight-based dosing when appropriate to reduce radiation dose to as low as reasonably achievable. Dictated by Ignacio Ceja MD @ 06/08/2025 2:20:25 PM (Electronically Signed)
--- NOTE | 2025-06-08 13:24 | ED_ITS ---
HPI - General Adult General Chief complaint: Abdominal Pain Stated complaint: Stomach pain Time Seen by Provider: 06/08/25 13:05 Source: patient Mode of arrival: ambulatory Limitations: no limitations History of Present Illness HPI narrative: 35-year-old female, with history of CML, presents for her 4th time in 8 days to the ER today. The last 3 visits she was having chest pain, today she is having left upper quadrant abdominal pain. Pain started this morning couple hours after she woke up. It has been constant. She describes it as rather strong and uncomfortable. She denies nausea vomiting. States she has not been feeling well for the last 2 days come increased fatigue and decreased appetite. She feels achy. She denies fevers or chills. No diarrhea or constipation, normal bowel movements. She denies increased urinary frequency, urgency or dysuria. She is not coughing. She does not feel short of breath. Patient had an EGD last week, states that the results were normal. Denies tripping, falling or any trauma to the abdomen. Patient states that [facility] told her that her inflammatory markers are elevated and that she should get an infectious disease panel. Related Data Home Medications ?Medication ?Instructions ?Recorded ?Confirmed duloxetine 60 mg capsule,delayed mg PO 08/06/22 release acyclovir 400 mg tablet 400 mg PO BID 05/31/2506/02 aripiprazole 10 mg tablet 10 mg PO DAILY 05/31/2505/19 buprenorphine 5 mcg/hour weekly 1 patch topical chroni c pain 05/31/25 transdermal patch gabapentin 300 mg capsule mg PO 05/31/25 hydromorphone 1 mg/mL oral liquid 0.5 mg PO DAILY PRN pain 05/31/25 06/02/25 ketoconazole 2 % shampoo topical 05/31/25 ondansetron 4 mg disintegrating 4 - 8 mg PO Q8H PRN na usea/vomiting 05/31/25 06/02/25 tablet pantoprazole 40 mg tablet,delayed 40 mg PO BID 5 06/02/25 release penicillin V potassium 500 mg 500 mg PO BID 05/31/25 0 06/02/25 tablet posaconazole 100 mg tablet,delayed mg PO 05/31/25 release prochlorperazine maleate 10 mg 10 mg PO Q6H PRN 06/02/25 tablet Allergies Allergy/AdvReac Type Severity Reaction Status Date / Time grapefruit Allergy Intermediate other Verified 06/08/25 14:16 amoxicillin Allergy Mild other Verified 06/08/25 14:16 bupropion (From Wellbutrin) Allergy Mild other Verified 06/08/25 14:16 Review of Systems Status of ROS: Reports: 10 or more systems reviewed and unremarkable except as noted in History and below [facility] Social History Smoking Status: Never smoker Do you use any of these nicotine containing products: None Second hand tobacco smoke exposure: No How often do you have a drink containing alcohol: never How often do you have six or more drinks on one occasion: Never AUDIT-C Alcohol total score: 0 Non-prescribed substance use: denies use service: No Exam Narrative: Exam Narrative: Well-nourished well-developed patient in no acute distress. Alert and oriented. Answers questions appropriately. Mood and affect are appropriate. Thoughts are goal oriented and rational. No tangential or magical thinking noted. Patient speaks in full sentences without needing to catch her breath. HEENT: Normocephalic atraumatic. Pupils are equally round reactive to light. Extraocular muscles are intact. Conjunctivae are moist without any icterus noted. Moist mucous membranes. Posterior pharynx is normal. Neck is soft. Cardiovascular: Heart is regular rate and rhythm S1 and S2 are present without any murmurs. Lungs: Clear to auscultation bilaterally no wheezes rhonchi or rales are appreciated. Patient takes deep breaths without any discomfort. Abdomen: Soft and nondistended with normal bowel sounds. No guarding or rebound. Patient complains of a lot of pain in the left upper quadrant but does not appear terribly uncomfortable on examination. Extremities: Bilateral lower extremities are without edema. Skin: Well perfused without any obvious rashes. Const: Vital Signs, click to edit/add: Vital Signs - 24 hr 06/08/25 13:07 06/08/25 13:57 06/08/25 13:58 Temperature 97.2 F L Pulse Rate 75 69 Pulse Rate [Pulse Oximeter] 86 Respiratory Rate 16 Blood Pressure 126/86 Blood Pressure [Ri ght Upper Arm] 129/88 Pulse Oximetry 97 95 97 Oxygen Delivery Me thod Room Air 07/21/25 14:00 06/08/25 14:02 06/08/25 14:15 Temperature Pulse Rate 74 69 73 Pulse Rate [Pulse Oximeter] Respiratory Rate 16 Blood Pressure 129/89 Blood Pressure [Ri ght Upper Arm] Pulse Oximetry 94 95 98 Oxygen Delivery Me thod Course Course ED Course: Differential diagnosis is very broad and includes musculoskeletal pain, mono, COVID, pancreatitis, PE. IV established and labs drawn. Given that this is the patient's 4th ER visit, we did decide to proceed with imaging. Blood work was unremarkable. Imaging was unremarkable. Vital Signs Vital signs: Initial Vital Signs Temperature 97.2 F L 06/08/25 13:07 Temperature Source Temporal Artery Scan 06/08/25 13:07 Pulse Rate 86 06/08/25 13:07 Respiratory Rate 16 06/08/25 13:07 Blood Pressure 129/88 06/08/25 13:07 Blood Pressure Mean 101 06/08/25 13:07 Blood Pressure Position Sitting 06/08/25 13:07 Pulse Oximetry 97 06/08/25 13:07 Oxygen Delivery Method Room Air 06/08/25 13:07 Vital Signs Temperature 97.2 F L 06/08/25 13:07 Pulse Rate 86 06/08/25 13:07 Respiratory Rate 16 06/08/25 13:07 Blood Pressure 129/88 06/08/25 13:07 Pulse Oximetry 97 06/08/25 13:07 Oxygen Delivery Method Room Air 06/08/25 13:07 Temperature 97.2 F L 06/08/25 13:07 Pulse Rate 73 06/08/25 14:15 Respiratory Rate 16 06/08/25 14:02 Blood Pressure 129/89 06/08/25 14:02 Pulse Oximetry 98 06/08/25 14:15 Oxygen Delivery Method Room Air 06/08/25 13:07 Medical Decision Making MDM Narrative Medical decision making narrative: 35-year-old female with recurrent chest chest pain, new onset abdominal pain today. Workup unremarkable. Patient reassured. We discussed that she needs to have more frequent follow-up with primary care in the clinic. Lab Data Labs: Lab Results 06/08/25 06/08/25 Range/Units 13:26 13:35 WBC 3.80 L (4.50-11.00) K/uL RBC 4.44 (4.00-5.20) m/uL Hgb 12.1 (12.0-16.0) gm/dL Hct 36.6 (33.0-51.0) % MCV 82 (80-100) fL MCH 27 (26-34) pg MCHC 33 (32-36) gm/dL RDW Coeff of [place] 13.5 (11.5-15.5) % Plt Count 172 (140-440) K/uL Neut % (Auto) 66.0 (42.0-72.0) % Lymph % (Auto) 19.5 L (20-44) % Mingo % (Auto) 10.3 (0.0-11.0) % Eos % (Auto) 2.6 (0.0-7.0) % Baso % (Auto) 0.3 (0.0-3.0) % Neut # (Auto) 2.50 (1.7-7.0) K/uL Lymph # (Auto) 0.70 L (0.90-2.90) K/uL Mingo # (Auto) 0.40 (0.00-0.90) K/UL Eos # (Auto) 0.10 (0.00-0.50) K/uL Baso # (Auto) 0.00 (0.00-0.30) K/uL Abs Immat Gran (auto) 0.00 (0.00-0.30) K/uL Imm/Tot Granulo (auto) 1.3 % ESR 23 H (2-20) mm/hr D-Dimer Quant (PE/DVT) 0.36 (0.00-0.50) ug/ml Sodium 138 (135-149) mmol/L Potassium 4.1 (3.6-5.1) mmol/L Chloride 105 (96-114) mmol/L Carbon Dioxide 26 (20-32) mmol/L Anion Gap 7 (7-15) mEq/L BUN 8 (5-24) mg/dL Creatinine 0.7 (0.5-1.5) mg/dL Estimated Creat Clear 112.08 Estimated GFR 115 ml/min Glucose 124 H (60-115) mg/dL Lactate 1.2 (0.5-1.9) mmol/L Calcium 9.5 (8.4-10.6) mg/dL Total Bilirubin 0.3 (0.1-1.5) mg/dL Direct Bilirubin 0.1 (0.0-0.5) mg/dL AST 40 H (12-35) U/L ALT 49 H (4-35) U/L Alkaline Phosphatase 71 (40-150) U/L C-Reactive Protein < 0.5 L (0.5-1.0) mg/dL Total Protein 7.4 (6.0-8.3) g/dL Albumin 4.3 (3.3-5.0) g/dL Lipase 55 (23-300) U/L Procalcitonin 0.05 (<0.50) ng/mL Urine Color Yellow (Yellow) Urine Appearance Clear (Clear) Urine pH 5.5 (5.0-8.5) Ur Specific [place] 1.025 (1.000-1.030) Urine Protein Trace A (Negative) Urine Glucose (UA) Negative (Negative) Urine Ketones Trace A (Negative) Urine Blood Negative (Negative) Urine Nitrite Negative (Negative) Urine Bilirubin Negative (Negative) Urine Urobilinogen 0.2 (0.2-1.0) Ur Leukocyte Esterase Negative (Negative) Urine RBC 0-2 (0-2) Urine WBC 0-2 (0-5) Ur Squamous Epith Cells None (None-Few) Urine Bacteria None (None) Urine HCG, Qual Negative (Negative) SARS-CoV-2 (PCR) Negative SARS-CoV-2 (Negative) Monoscreen Negative (Negative) Influenza Type A (PCR) Negative PCR FLU A (Negative) Influenza Type B (PCR) Negative PCR FLU B (Negative) Imaging Data CT Chest/Ab/Pelvis: Attestation: I have reviewed the pertinent imaging results. Radiologist's impression: TECHNIQUE: CT chest, abdomen and pelvis acquired with 108 cc Isovue 370 intravenous contrast. COMPARISON: Abdomen and pelvis CT 12/10/2018 FINDINGS: CHEST: Cardiovascular structures: Thoracic aorta is normal in caliber. 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 Mediastinum and [place]: No mass or adenopathy. Lungs and pleura: Lungs and pleural spaces are clear. No suspicious nodules, infiltrates, or effusions. Chest wall and axilla: No mass or adenopathy. Bones: No suspicious bone lesions. Unremarkable for age. ABDOMEN AND PELVIS: Liver: Unremarkable. Gallbladder and bile ducts: Unremarkable. Pancreas: Unremarkable. Spleen: Unremarkable. Adrenal glands: Unremarkable. Kidneys: Unremarkable. GI tract: The stomach is unremarkable. No dilated loops of large or small intestine. Appendix unremarkable. Vascular structures: Unremarkable. Lymph nodes: Unremarkable. Miscellaneous: Unremarkable. No free air or significant free fluid. Pelvic Organs: Unremarkable. Bones: Degenerative disc disease L5-S1. IMPRESSION: Unremarkable chest, abdomen and pelvis CT. No findings to explain the patient`s symptoms. Discharge Plan Discharge Clinical Impression: Abdominal pain Patient Disposition: Home, Self-Care Condition: Stable Additional Instructions: Your workup today was unremarkable-there were no elevated inflammatory markers. Your imaging was normal. Recommend you follow-up with your primary care provider more closely in the clinic. Prescriptions: No Action duloxetine 60 mg capsule,delayed release(DR/EC) PO acyclovir 400 mg tablet 400 mg PO BID gabapentin 300 mg capsule PO aripiprazole 10 mg tablet 10 mg PO DAILY buprenorphine 5 mcg/hour patch weekly 1 patch topical ketoconazole 2 % shampoo topical penicillin V potassium 500 mg tablet 500 mg PO BID prochlorperazine maleate 10 mg tablet 10 mg PO Q6H PRN pantoprazole 40 mg tablet,delayed release (DR/EC) 40 mg PO BID ondansetron 4 mg tablet,disintegrating 4 - 8 mg PO Q8H PRN (Reason: nausea/vomiting) hydromorphone 1 mg/mL liquid 0.5 mg PO DAILY PRN (Reason: pain) posaconazole 100 mg tablet,delayed release (DR/EC) PO Follow Up/Referrals: Anny Matthews CHIEF CONTROLLER TOWER [Primary Care Provider, Family Practice] Stand Alone Forms: [employer] Info Instructions
[2025-06-08 13:46] LABS: Appearance Urine Clear (Clear)
[2025-06-08 13:50] LABS: Ur HCG Qualitative* Negative (Negative)
[2025-06-08 13:50] LABS: Lactate* 1.2 mmol/L (0.5-1.9)
[2025-06-08 13:54] LABS: Hematocrit 36.6 % (33.0-51.0); Hemoglobin* 12.1 gm/dL (12.0-16.0); Immature Granulocytes Pct Auto 1.3 %; Mean Corpuscular HGB Conc 33 gm/dL (32-36); Mean Corpuscular Hemoglobin 27 pg (26-34); Mean Corpuscular Volume 82 fL (80-100); RDW Coefficient of Variation % 13.5 % (11.5-15.5); Red Blood Count 4.44 m/uL (4.00-5.20); White Blood Count* 3.80 K/uL (4.50-11.00)
[2025-06-08 13:57] VITALS: PULSE 75; O2SAT 95
[2025-06-08 13:58] VITALS: BP 126/86; PULSE 69; O2SAT 97
[2025-06-08 14:00] VITALS: PULSE 74; O2SAT 94
[2025-06-08 14:02] VITALS: BP 129/89; PULSE 69; RESP 16; O2SAT 95
[2025-06-08 14:07] LABS: Albumin* 4.3 g/dL (3.3-5.0); Chloride* 105 mmol/L (96-114); Potassium* 4.1 mmol/L (3.6-5.1); Sodium* 138 mmol/L (135-149)
[2025-06-08 14:10] LABS: Alanine Aminotransferase* 49 U/L (4-35); Anion Gap 7 mEq/L (7-15); Aspartate Amino Transferase* 40 U/L (12-35); Blood Urea Nitrogen* 8 mg/dL (5-24); Carbon Dioxide* 26 mmol/L (20-32); Creatinine* 0.7 mg/dL (0.5-1.5); Est. Creatinine Clearance* 112.08; Estimated Glomerular Filt Rate 115 ml/min; Immature Granulocytes Abs Auto 0.00 K/uL (0.00-0.30); Lymphocytes Absolute Auto 0.70 K/uL (0.90-2.90); Total Protein* 7.4 g/dL (6.0-8.3)
[2025-06-08 14:11] LABS: Alkaline Phosphatase* 71 U/L (40-150); Bilirubin Direct* 0.1 mg/dL (0.0-0.5); Bilirubin Total* 0.3 mg/dL (0.1-1.5); Calcium* 9.5 mg/dL (8.4-10.6); Glucose* 124 mg/dL (60-115); Slide Review Reflex No
[2025-06-08 14:12] LABS: D Dimer Quantitative* 0.36 ug/ml (0.00-0.50)
[2025-06-08 14:13] LABS: Mono Screen* Negative (Negative)
[2025-06-08 14:15] VITALS: PULSE 73; O2SAT 98
[2025-06-08 14:20] LABS: PCR FLU A Negative PCR FLU A (Negative); PCR FLU B Negative PCR FLU B (Negative); SARS PCR* Negative SARS-CoV-2 (Negative)
[2025-06-08 14:28] LABS: Procalcitonin* 0.05 ng/mL (<0.50)
[2025-06-08 15:02] LABS: Erythrocyte SedimentationRate* 23 mm/hr (2-20)
== END 2025-06-08 15:25 | disposition home or self-care (01) ==
PROVIDERS: Emergency Provider Family Medicine; PCP Registered Nurse
DX: R10.12 Left upper quadrant pain (principal)
CPT/HCPCS: 36415; 71260; 74177; 80048; 80076; 81001; 81025; 83605; 83690; 84145; 85025; 85379; 85651; 86140; 86308; 87086; 87338; 87631; 99284; Q9967

== ENCOUNTER 2025-06-14 18:15 | Emergency (ER) | payer MEDICARE, BC, SELFPAY ==
--- OUTSIDE RECORDS SUMMARY | 2025-04-29 10:00 | XMS_ITS | Encounter Summary ---
Author Organization [facility] Address [address] [place] [id number] Care Team Providers Care Post Office Manager Name Role Phone Renzo Andres M.D. Primary Care Provider [phone] Reason for Referral * Outpatient (Routine) - Closed Specialty Diagnoses / Procedures Referred By Contac t Referred To Contact Pharmacy Lito Pollock P.A.-C. [address] [place] [phone] Phone: tel: fax: [facility] Referral ID Status Reason Start Date Expiration Date Visits Re quested Visits Authorized [id number] Closed 04/29/2025 10/29/2026 1 1 Scheduling Instructions Please schedule with pharmacist for 30 minutes. Patient type: Allo Over 100 Visit Type: Return Scheduling Preferences Option 1: Primary MD only/RN Option 2: BMT MD/Jt Fellow-RN Other Scheduling Instructions: Please schedule follow up with Pharm/RN/Provider and allo labs in 3 weeks. Thanks! Primary MD: Soham RN Team: Rst Bmt Team [place] * Transplant (Routine) - Closed Specialty Diagnoses / Procedures Referred By Contac t Referred To Contact Transplant Lito Pollock P.A.-C. [address] [place] [phone] Phone: tel: fax: [facility] Referral ID Status Reason Start Date Expiration Date Visits Re quested Visits Authorized [id number] Closed 04/29/2025 10/29/2026 1 1 Scheduling Instructions Please schedule with BMT MD for 30 minutes. Patient type: Allo Over 100 Visit Type: Return Scheduling Preferences Option 1: Primary MD only/RN Option 2: BMT MD/Jt Fellow-RN Other Scheduling Instructions: Please schedule follow up with Pharm/RN/Provider and allo labs in 3 weeks. Thanks! Primary MD: Soham BERGER Team: [facility] Bmt Team [place] * Transplant (Routine) - Closed Specialty Diagnoses / Procedures Referred By Contac t Referred To Contact Transplant Lito Pollock P.A.-C. [address] [place] [phone] Phone: tel: fax: [facility] Referral ID Status Reason Start Date Expiration Date Visits Re quested Visits Authorized [id number] Closed 04/29/2025 10/29/2026 1 1 Scheduling Instructions Please schedule with RNCC for 30 min Patient type: Allo Over 100 Visit Type: Return Scheduling Preferences Option 1: Primary MD only/RN Option 2: BMT MD/Jt Fellow-RN Other Scheduling Instructions: Please schedule follow up with Pharm/RN/Provider and allo labs in 3 weeks. Thanks! Primary MD: Soham RN Team: t Bmt Team [place] Reason for Visit * Reason Comments Nurse Visit * Transplant (Routine) - Closed Specialty Diagnoses / Procedures Referred By Contac t Referred To Contact Transplant Becky Hernandez APRN, C.N.P., D.N.P. [address] [place] [phone] Phone: tel: fax: [facility] Referral ID Status Reason Start Date Expiration Date Visits Re quested Visits Authorized [id number] Closed 04/08/2025 10/08/2026 1 1 Encounter Details Date Type Department Care Team (Latest Contact Info) Description 04/29/2025 10:00 AM CDT [facility] [place], [place] [address] [place] [phone] Becky Hernandez APRN, C.N.P., D.N.P. [address] [place] [phone] Lito Pollock P.A.-C. [address] [place] [phone] Jesika Pacheco R.N., BMT-CN [address] [place] [phone] 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); Transplant Stem Cell (HCC); Follow Up Examination Following Bone Marrow Transplant; 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); Transplant Bone Marrow Allogeneic (HCC) Social History Tobacco Use Types Packs/Day Years Used Date Smoking Tobacco: Never Smokeless Tobacco: Never Alcohol Use Standard Drinks/Week Comments Yes 0 (1 standard drink = 0.6 oz pur e alcohol) social [facility] Utilities Answer Date Recorded In the past 12 months has [facility] [employer], gas, oil, or water [employer] threatened to shut off services in your [...] your living situation today? I have a [facility] place to live 12/19/2024 Education Answer Date Recorded What is the highest level of school you have completed or the highest degree you have received? Some college, no degree 04/24/2019 Comments No Sex and Gender Information Value Date Recorded Sex Assigned at Female 12/26/2018 8:37 PM CLINIC OFFICE MANAGER Legal Sex Female 2:43 PM CLINIC OFFICE MANAGER Gender Identity Female 12/26/2018 8:37 PM CLINIC OFFICE MANAGER Sexual Orientation Choose not to disclose 2020 3:46 PM CDT documented as of this encounter Progress Notes * Lito Pollock P.A.-C. - 04/29/2025 10:00 AM CDT TRANSPLANT PHYSICIAN Dr. Jessica Rousseau, pager [phone] CHIEF COMPLAINT/REASON FOR VISIT Ms. Radha Martinez is a 35 y.o. female with a past medical history significant for CML who is seentoday for ongoing follow up status post a matched, unrelated donor allogeneic stem cell transplant.Currently Day +140 HISTORY OF PRESENT ILLNESS Please refer to multiple prior notes in EMR for complete hematologic history: Ms. Martinez is a 35 y.o. 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 At the time of diagnosis, there was grade 3 reticulin fibrosis noted. The cytogenetics identified a [place] chromosome in 20 metaphases. The BCR-ABL1 P [...] t(9;22) metaphases. NGS is positive for ASXL1 p.[id number]*12 (20%) and p.Urk744* (3%). 06/17/2024: feeling quite symptomatic since the [...] Access [place] CVC placed on 12/03/24 by [facility]. Social Work Seen and cleared on 10/29/24 [...] prophylaxis: Ursodiol 600 mg two times daily. [facility]: [id number] [...] cloacae UTI, treated with Ciprofloxacin INTERVAL HISTORY 04/29/25 Day+140 Ms. Martinez shares that her major discomfort is still bilateral lower extremity dull and achy pain. 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 She feels tightness on her feet when walking. She denies any stabbing pain. Due to the pain she is not walking much. She also reports fatigue. She currently takes Cymbalta 120 mg daily. She also takes gabapentin 300 mg in the morning and at night daily. She takes hydromorphone 0.5 mg daily at night. She reports that gabapentin is not working well for her and she is considering switching to Lyrica. We discussed that she could increase the dose of gabapentin at night to see if it is helpful. She agrees to try. She otherwise is doing well. She denies any pzoov-cntagt-mqvq disease symptoms including dry eyes, dry mouth, abdominal pain, nausea, vomiting, diarrhea, skin rash. She has no lightheadedness or dizziness. Her counts stable. She has no fever or chills. No cough, chest pain, shortness breath. REVIEW OF SYSTEMS: a 10 point ROS was performed and negative with the exception of notation above. OBJECTIVE Weight 103 kg Blood pressure 132/87 I personally check the blood pressure in the exam room Temperature 36.5 PHYSICAL EXAM (limited due to video visit) General: Patient is alert, oriented, and in no acute distress. Vitals as noted. Skin: No rash or bruising. Head: Atraumatic. Eyes: Anicteric, EOMI, PERRLA ENT: No mucositis or thrush. Heart: Regular rate and rhythm. S1, S2 heard. No murmur, rubs, gallop, or click. Lungs: Clear bilaterally. Abdomen: Soft, nontender, nondistended with normal active bowel sounds. Extremities: No peripheral edema, cyanosis, or pallor. Fuad/Psych: CN 2-12 intact, normal affect KPS:90% DIAGNOSTICS Labs from today reviewed. Current Outpatient Medications Medication Instructions acyclovir (ZOVIRAX) [...] LORazepam (ATIVAN) 0.5 mg, oral, Bedtime PRN melatonin 3 mg, oral, Daily at bedtime penicillin V potassium (VEETIDS) 500 mg, oral, 2 times daily, Start on Day -1 (12/09/24). 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 [id number]% donor DNA and approximately 0% recipient DNA. - Continue to check RT PCR BCR-ABL on peripheral blood every 6 weeks (pending on April 29) - Peripheral sort chimerism pending on 04/29 - Last BM Bx from 02/18/25 was normal, no BCR-ABL1 detected. - Repeat BM biopsy scheduled June 15, 2025 # GVHD Prophylaxis - Received PTCy; MMF was stopped per protocol. -Tacrolimus discontinue 04/17/2025 ACUTE GVHD (CIBMTR CRITERIA) Current Severity 04/29/2025 Skin Stage Stage 0 (No GVHD rash) Liver Stage Stage 0 (Normal bilirubin) Gut Stage Stage 0 (Diarrhea <500 mL/day) Overall Grade Grade 0 (No acute GVHD) Change from previous evaluation: NA # Antimicrobial Prophylaxis - Continues on Acyclovir, Penicillin VK, Bactrim, and Posaconazole. - Anticipate discontinuing Bactrim and Posaconazole approx 3 months after discontinuation of tacrolimus (approx Jul 16). At that time may also consider stopping Acyclovir as she received two doses of Shingrix already. - CD 4 count pending on April 29. # Mild transaminitis ALT and AST are marginally elevated. Will monitor for now. # Insomnia - Continues on Melatonin 5 mg qHS. # Peripheral neuropathy - Continues on duloxetine, pregabalin, and hydromorphone PRN. - Initiated gabapentin 300 mg po BID on 04/08, the evening dose was increased to 600 mg on 04/29/15. - We discussed that hydromorphone should not be used for chronic pain. Hydromorphone was refilled for a short tem pain relief. Hopefully she will be able to wean off hydromorphone while increasing the dose of Gabapentin. # Vitamin D Deficiency - Continues on Vitamin D supplement 2000 units daily # Generalized Anxiety Disorder # Major Depressive [...] Wears glasses. - Followed by [facility] in [place], [place]. - Patient will notify team if any vision changes. # Blood Products # TACO - Requires infusion of platelets at a slower rate # Disposition - Follow-up labs, pharmacy, RN/provider in three weeks. - Local labs at [facility] in 10 days. Lito Pollock P.A.-C. * Jesika Pacheco R.N., BMT-CN - 04/29/2025 10:00 AM CDT S/P Allo Transplant for 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) [C92.10]. Day 0 = 12/10/2024 (140 days). Please see previous notes regarding patient's history. Patient seen in conjunction with the provider, Lito Pollock PA-C. Please see his note for a full systems review. KPS: 80 Plan of care discussed with provider: Patient's transition from Hospital Based Outpatient to Outpatient BMT was completed on 12/31/2024. New medication changes with this visit: Increase Gabapentin dose to 300 mg in AM and 600 mg at bedtime. Lito will send a 3 week supply of Dilaudid to patient's local pharmacy. Pending Results: Sort, CD4, BCR/ABL, and CMV. Interim Plans: Palliative care visit on 05/25/25. First set of immunizations scheduled for 06/09/25. BMBX scheduled on 06/15/25. Lab Plan: Local labs once in 10 days at [facility]. Future BMT Appointments: BMT return in 3 weeks with Pharm/RN/Provider and allo labs (including CMV). Per Dr. Rousseau, we will continue to check BCR/ABL p210 on peripheral blood every 6 weeks (completed today, 04/29/25). However, if the result from today is normal, could be done every 2 months. Central Line Management NA. All questions answered, patient verbalized understanding of plan, patient will call with any additional questions or concerns prior to return appointment. Jesika Pacheco R.N., BMT-CN documented in this encounter Plan of Treatment Upcoming Encounters Date Type Department Care Team (Latest Contact Info) Description 06/12/2025 11:59 PM CDT Anesthesia Event Outpatient Procedure Center in [place], [place] [address] [place] [phone] Kristin Friend M.D. [address] [place] [phone] 06/15/2025 9:45 AM CDT Hospital Encounter Outpatient [facility] in [place], [place] [address] [place] [phone] Jessica Rousseau M.B.B.S. [address] [place] [phone] 06/15/2025 2:00 PM CDT Office [facility] [place], [place] [address] [place] [phone] Jessica Rousseau M.B.B.S. [address] [place] [phone] 06/24/2025 12:30 PM CDT Clinical Communication Virtual Review in [place], [place] 200 [place] [phone] 06/25/2025 8:10 AM CDT Lab Department of Laboratory Medicine and Pathology, [facility], in [place], [place] [address] [place] [phone] Tessa Jesus, KARON, C.N.P., D.N.P. [address] [place] [phone] 06/25/2025 9:00 AM CDT Office Visit [facility] [place], [place] [address] [place] [phone] Tessa Jesus APRN, C.N.P., D.N.P. [address] [place] [phone] 06/25/2025 9:30 AM CDT Nurse Only [facility] Transplantation and Clinical Regeneration in [place], [place] [address] [place] [phone] Tessa Jesus APRN C.N.P., D.N.P. [address] [place] [phone] 06/25/2025 10:30 AM CDT Office Visit [facility] Trans[facility] Clinical [facility]eneration in [place], [place] [address] [place] [phone] Jessica Rousseau M.B.B.S. [address] [place] [phone] 06/25/2025 12:00 PM CDT Appointment Department of Radiology, [facility], in [place], [place] [address] [place] [phone] Arlen James APRN, C.N.P., D.N.P. [address] [place] [phone] 06/25/2025 12:40 PM CDT Appointment Department of Cardiovascular Diseases in [place], [place] [address] [place] [phone] Analia Carter APRN, C.N.P. [address] [place] [phone] Discharge Disposition: Home or Self Care 06/26/2025 10:00 AM CDT Telemedicine Department of Palliative Care in [place], [place] [address] [place] [phone] Isabel Sellers M.D. [address] [place] [phone] Debbie Shay M.D. [address] [place] [phone] 08/12/2025 10:40 AM CDT Nurse Only Section of Infectious Diseases in [place], [place] [address] [place] [phone] Jessica Rousseau M.B.B.S. [address] [place] [phone] Scheduled Referrals Name Type Priority Associated Diagnoses Order Schedule Transplant Bone marrow office visit (clinic) Outpatient Referral Routine Expected: 05/20/2025, Expires: 07/30/2026 Transplant Bone marrow office visit (clinic) Outpatient Referral Routine Expected: 05/20/2025, Expires: 07/30/2026 Pharmacy - Medication therapy management - transplant office visit (clinic) Outpatient Referral Routine Expected: 05/20/2025, Expires: 07/30/2026 documented as of this encounter Results * CMV DNA Detect / Quant, Plasma (05/20/2025 8:48 AM CDT) [facility] CMV DNA Detect/Quant, P Undetected Undetected IU/mL 05/20/2025 9:[address] [facility] Comment: Result in log IU/mL is Undetected. ----ADDITIONAL INFORMATION---- The quantification range of this assay is 35 to 10,000,000 IU/mL (1.54 log to 7.00 log IU/mL). Testing was performed using the lucrecia CMV test ([employer] Blood (Blood, Venous) 05/20/2025 8:48 AM CDT 05/20/2025 11:04 AM CDT Lito Pollock P.A.-C. LAB MICROBIOLOGY - BLOOD ORDER JANES Final Result Performing Organization Address City/[facility]/ZIP Co de Phone Number [facility] [address] [place] [address] [facility] [address] [place] [address] [place] [address] * LD (Lactate Dehydrogenase) (05/20/2025 8:48 AM CDT) [facility] LD 173 122 - 222 U/L 05/20/2025 10:11 AM CDT DTL Blood (Blood, Venous) 05/20/2025 8:48 AM CDT 05/20/2025 9:49 AM CDT Lito Pollock P.A.-C. LAB BLOOD NON ADD-ON Final Res ult Performing Organization Address City/[facility]/ZIP Co de Phone Number [facility] [address] [place] [address] * Sodium (05/20/2025 8:48 AM CDT) [facility] Sodium, S 140 135 - 145 mmol/L 05/20/2025 10:03 AM CDT DT Blood (Blood, Venous) 05/20/2025 8:48 AM CDT 05/20/2025 9:27 AM CDT Ltio Pollock P.A.-C. LAB BLOOD ADD-ON Final Result Performing Organization Address City/[facility]/ZIP Co de Phone Number [facility] [address] [place] [address] * Potassium (05/20/2025 8:48 AM CDT) [facility] Potassium, S 4.0 3.6 - 5.2 mmol/L 05/20/2025 10:03 AM CDT DTL Blood (Blood, Venous) 05/20/2025 8:48 AM CDT 05/20/2025 9:27 AM CDT Lito Pollock P.A.-C. LAB BLOOD ADD-ON Final Result Performing Organization Address City/[facility]/ZIP Co de Phone Number [facility] [address] [place] [address], [facility] [address] [place] [address] * Magnesium (05/20/2025 8:48 AM CDT) Magnesium, S 2.0 1.7 - 2.3 mg/dL 05/20/2025 10:03 AM CDT DTL Blood (Blood, Venous) 05/20/2025 8:48 AM CDT 05/20/2025 9:27 AM CDT Lito Pollock P.A.-C. LAB BLOOD ADD-ON Final Result Performing Organization Address [facility] Co de Phone Number [facility] [address] [place], [place] [address] [place] [address] [address] [place] [address] * (ABNORMAL) Glucose, Fasting (05/20/2025 8:48 AM CDT) Glucose, P 158(H) 70 - 100 mg/dL 05/20/2025 10:00 AM CDT DTL Last Intake 1 hr 05/20/2025 9:27 AM CDT DTL Blood (Blood, Venous) 05/20/2025 8:48 AM CDT 05/20/2025 9:27 AM CDT Lito Pollock P.A.-C. LAB BLOOD NON ADD-ON Final Res ult Performing Organization Address City/[facility]/ZIP Co de Phone Number [facility] [address] [place] [address], [facility] [address] [place] [address] * Creatinine with Estimated GFR (05/20/2025 8:48 AM CDT) Creatinine 0.90 0.59 - 1.04 mg/dL 05/20/2025 10:03 AM CDT DTL Estimated GFR (eGFR) 85 >=60 mL/min/BSA 05/20/2025 10:03 AM CDT DTL Comment: Estimated GFR calculated using the 2020 CKD_EPI creatinine equation. Blood (Blood, Venous) 05/20/2025 8:48 AM CDT 05/20/2025 9:27 AM CDT Lito Pollock P.A.-C. LAB BLOOD ADD-ON Final Result [facility] [address] [place] [address], [facility] [address] [place] [address] * (ABNORMAL) CBC no call back, reflex T/S HGB <8 (05/20/2025 8:48 AM CDT) Pathologist [facility] Hemoglobin 11.8 11.6 - 15.0 g/dL 05/20/2025 10:19 AM CDT DTL Hematocrit 36.1 35.5 - 44.9 % 05/20/2025 10:19 AM CDT DTL Erythrocytes 4.31 3.92 - 5.13 x10(12)/L 05/20/2025 10:19 AM CDT DTL MCV 83.8 78.2 - 97.9 fL 05/20/2025 10:19 AM CDT DTL RBC Distrib Width 13.5 12.2 - 16.1 % 05/20/2025 10:19 AM CDT DTL Platelet Count 187 157 - 371 x10(9)/L 05/20/2025 10:19 AM CDT DTL Leukocytes 3.7 3.4 - 9.6 x10(9)/L 05/20/2025 10:19 AM CDT DTL Neutrophils 2.58 1.56 - 6.45 x10(9)/L 05/20/2025 10:19 AM CDT DHPM Lymphocytes 0.74(L) 0.95 - 3.07 x10(9)/L 05/20/2025 10:19 AM CDT DTL Monocytes 0.21(L) 0.26 - 0.81 x10(9)/L 05/20/2025 10:19 AM CDT DTL Eosinophils 0.12 0.03 - 0.48 x10(9)/L 05/20/2025 10:19 AM CDT DTL Basophils 0.03 0.01 - 0.08 x10(9)/L 05/20/2025 10:19 AM CDT DTL Blood (Blood, Venous) 05/20/2025 8:48 AM CDT 05/20/2025 9:10 AM CDT Lito Pollock P.A.-C. LAB BLOOD NON ADD-ON Final Res ult Performing Organization Address City/[facility]/[place] [address] * Calcium, Total (05/20/2025 8:48 AM CDT) [facility] Calcium, Total, S 9.2 8.6 - 10.0 mg/dL 05/20/2025 10:03 AM CDT DTL Blood (Blood, Venous) 05/20/2025 8:48 AM CDT 05/20/2025 9:27 AM CDT Lito Pollock P.A.-C. LAB BLOOD ADD-ON Final Result Performing Organization Address City/[facility]/[place] [address] * BUN (Blood Urea Nitrogen) (05/20/2025 8:48 AM CDT) BUN (Blood Urea Nitrogen), S 9 6 - 21 mg/dL 05/20/2025 10:03 AM CDT DTL Blood (Blood, Venous) 05/20/2025 8:48 AM CDT 05/20/2025 9:27 AM CDT Lito Ferrer-C. LAB BLOOD ADD-ON Final Result Performing Organization Address City/[facility]/ZIP Co de Phone Number [facility] [address] [place] [address], [facility] DTL [facility] [address] [place] [address] * Bilirubin, Total (05/20/2025 8:48 AM CDT) Bilirubin, Total, P 0.3 0.0 - 1.2 mg/dL 05/20/2025 9:22 AM CDT METH Blood (Blood, Venous) 05/20/2025 8:48 AM CDT 05/20/2025 9:01 AM CDT us Lito Ferrer-C. LAB BLOOD ADD-ON Final Result Performing Organization Address City/[facility]/ZIP Co de Phone Number [facility] [address] [place] [address], [facility] METH [facility] [address] [place] [address] * AST (Aspartate Aminotransferase) (05/20/2025 8:48 AM CDT) Aspartate Aminotransferase (AST), P 26 8 - 43 U/L 05/20/2025 9:22 AM CDT METH Blood (Blood, Venous) 05/20/2025 8:48 AM CDT 05/20/2025 9:01 AM CDT Lito SladeC. LAB BLOOD ADD-ON Final Result [facility] [address] [place] [id number], [facility] METH [facility] [address] [place] [address] * ALT (Alanine Aminotransferase) (05/20/2025 8:48 AM CDT) Alanine Aminotransferase (ALT), S 33 7 - 45 U/L 05/20/2025 10:03 AM CDT DTL Blood (Blood, Venous) 05/20/2025 8:48 AM CDT 05/20/2025 9:27 AM CDT Lito Pollock P.A.-C. LAB BLOOD ADD-ON Final Result Performing Organization Address City/[facility]/ZIP Co de Phone Number [facility] [address] [place] [address] * Alkaline Phosphatase (05/20/2025 8:48 AM CDT) Alkaline Phosphatase, S 103 35 - 104 U/L 05/20/2025 10:03 AM CDT DT Blood (Blood, Venous) 05/20/2025 8:48 AM CDT 05/20/2025 9:27 AM CDT Lito Pollock P.A.-C. LAB BLOOD ADD-ON Final Result Performing Organization Address [facility] Co de Phone Number [facility] [address] [place] [address] * Albumin (05/20/2025 8:48 AM CDT) Albumin, S 4.2 3.5 - 5.0 g/dL 05/20/2025 10:03 AM CDT DT Blood (Blood, Venous) 05/20/2025 8:48 AM CDT 05/20/2025 9:27 AM CDT Lito Pollock P.A.-C. LAB BLOOD ADD-ON Final Result [facility] [address] [place] [address], [facility] DTL [facility] [address] [place] [address] * CBC with Differential, Blood (05/08/2025 12:35 PM CDT) Hemoglobin 12.4 11.6 - 15.0 g/dL 05/08/2025 2:36 PM CDT [facility] Hematocrit 38.4 35.5 - 44.9 % 05/08/2025 2:36 PM CDT [facility] Erythrocytes 4.53 3.92 - 5.13 x10(12)/L 05/08/2025 2:36 PM CDT [facility] MCV 84.8 78.2 - 97.9 fL 05/08/2025 2:36 PM CDT [facility] RBC Distrib Width 13.6 12.2 - 16.1 % 05/08/2025 2:36 PM CDT [facility] Platelet Count 220 157 - 371 x10(9)/L 05/08/2025 2:36 PM CDT [facility] Leukocytes 4.3 3.4 - 9.6 x10(9)/L 05/08/2025 2:36 PM CDT [facility] Neutrophils 2.77 1.56 - 6.45 x10(9)/L 05/08/2025 2:36 PM CDT [facility] Lymphocytes 0.96 0.95 - 3.07 x10(9)/L 05/08/2025 2:36 PM CDT [facility] Monocytes 0.31 0.26 - 0.81 x10(9)/L 05/08/2025 2:36 PM CDT [facility] Eosinophils 0.17 0.03 - 0.48 x10(9)/L 05/08/2025 2:36 PM CDT [facility] Basophils 0.04 0.01 - 0.08 x10(9)/L 05/08/2025 2:36 PM CDT [facility] Blood (Blood, Venous) 05/08/2025 12:35 PM CDT 05/08/2025 2:34 PM CDT Lito Pollock P.A.-C. LAB BLOOD ADD-ON Final Result [facility] [address] [place] [address], [place] [facility] [facility] [place] [address] [place] [address] * CMV DNA Detect / Quant, Plasma (05/08/2025 12:35 PM CDT) Pathologist [facility] CMV DNA Detect/Quant, P Undetected Undetected IU/mL 05/10/2025 4:[address] [facility] Comment: Result in log IU/mL is Undetected. ----ADDITIONAL INFORMATION---- The quantification range of this assay is 35 to 10,000,000 IU/mL (1.54 log to 7.00 log IU/mL). Testing was performed using the lucrecia CMV test ([employer] Blood (Blood, Venous) 05/08/2025 12:35 PM CDT 05/09/2025 7:46 AM CDT us Lito Pollock P.A.-C. LAB MICROBIOLOGY - BLOOD ORDER JANES Final Result Performing Organization Address [facility]/ZIP Co de Phone Number [facility] [address] [place] [address] [facility] [address] [place] [address] [place] [address] * LD (Lactate Dehydrogenase) (05/08/2025 12:35 PM CDT) Pathologist [facility] Lactate Dehydrogenase (LD), P 158 122 - 222 U/L 05/08/2025 9:58 PM CDT [facility] Blood (Blood, Venous) 05/08/2025 12:35 PM CDT 05/08/2025 9:37 PM CDT us Lito Pollock P.A.-C. LAB BLOOD NON ADD-ON Final Res ult [facility] [address] [place] [address], [facility] [address] [place] [address] * Sodium (05/08/2025 12:35 PM CDT) Sodium, P 139 135 - 145 mmol/L 05/08/2025 3:08 PM CDT [facility] Blood (Blood, Venous) 05/08/2025 12:35 PM CDT 05/08/2025 2:36 PM CDT Lito Pollock P.A.-C. LAB BLOOD ADD-ON Final Result [facility] [address] [place] [address], [place] [address] [facility] [place] [address] [place] [address] * Potassium (05/08/2025 12:35 PM CDT) Potassium, P 4.4 3.6 - 5.2 mmol/L 05/08/2025 3:08 PM CDT [facility] Blood (Blood, Venous) 05/08/2025 12:35 PM CDT 05/08/2025 2:36 PM CDT us Lito Ferrer-C. LAB BLOOD ADD-ON Final Result [facility] [address] [place] [address], [place] [facility] [place] [address] [place] [address] * Magnesium (05/08/2025 12:35 PM CDT) Magnesium, P 2.2 1.7 - 2.3 mg/dL 05/08/2025 3:08 PM CDT [facility] Blood (Blood, Venous) 05/08/2025 12:35 PM CDT 05/08/2025 2:36 PM CDT us Lito Pollock P.A.-C. LAB BLOOD ADD-ON Final Result Performing Organization Address City/[facility]/ZIP Co de Phone Number [facility] [address] [place] [address], [place] [facility] [facility] [place] [address] [place] [address] * (ABNORMAL) Glucose, Fasting (05/08/2025 12:35 PM CDT) Glucose, P 126(H) 70 - 100 mg/dL 05/08/2025 3:10 PM CDT [facility] Last Intake 1 hr 05/08/2025 2:34 PM CDT [facility] Blood (Blood, Venous) 05/08/2025 12:35 PM CDT 05/08/2025 2:34 PM CDT us Lito SladeC. LAB BLOOD NON ADD-ON Final Res ult Performing Organization Address [facility] Co de Phone Number [facility] [address] [place] [address], [place] [facility] [place] [address] [place] [id number] * Creatinine with Estimated GFR (05/08/2025 12:35 PM CDT) Creatinine 0.78 0.59 - 1.04 mg/dL 05/08/2025 3:08 PM CDT [facility] Estimated GFR (eGFR) >90 >=60 mL/min/BSA 05/08/2025 3:08 PM CDT [facility] Comment: Estimated GFR calculated using the 2020 CKD_EPI creatinine equation. Blood (Blood, Venous) 05/08/2025 12:35 PM CDT 05/08/2025 2:36 PM CDT us Lito Pollock P.A.-C. LAB BLOOD ADD-ON Final Result Performing Organization Address City/[facility]/ZIP Co de Phone Number [facility] [address] [place] [address], [place] [facility] [place] [address] [place] [address] * Calcium, Total (05/08/2025 12:35 PM CDT) Calcium, Total, P 9.4 8.6 - 10.0 mg/dL 05/08/2025 3:08 PM CDT [facility] Blood (Blood, Venous) 05/08/2025 12:35 PM CDT 05/08/2025 2:36 PM CDT us Lito Pollock P.A.-C. LAB BLOOD ADD-ON Final Result [facility] [address] [place] [address], [place] [facility] [place] [address] [place] [address] * BUN (Blood Urea Nitrogen) (05/08/2025 12:35 PM CDT) BUN (Blood Urea Nitrogen), P 9 6 - 21 mg/dL 05/08/2025 3:08 PM CDT [facility] Blood (Blood, Venous) 05/08/2025 12:35 PM CDT 05/08/2025 2:36 PM CDT Lito Pollock P.A.-C. LAB BLOOD ADD-ON Final Result [facility] [address] [place] [address], [facility] [place] [address] [place] [address] * Bilirubin, Total (05/08/2025 12:35 PM CDT) Bilirubin, Total, P 0.2 0.0 - 1.2 mg/dL 05/08/2025 3:08 PM CDT [facility] Blood (Blood, Venous) 05/08/2025 12:35 PM CDT 05/08/2025 2:36 PM CDT us Lito Pollock P.A.-C. LAB BLOOD ADD-ON Final Result Performing Organization Address City/[facility]/ZIP Co de Phone Number [facility] [address] [place] [address], [place] [facility] [facility] [place] [address] [place] [address] * AST (Aspartate Aminotransferase) (05/08/2025 12:35 PM CDT) Aspartate Aminotransferase (AST), P 37 8 - 43 U/L 05/08/2025 3:08 PM CDT [facility] Blood (Blood, Venous) 05/08/2025 12:35 PM CDT 05/08/2025 2:36 PM CDT us Lito Pollock P.A.-C. LAB BLOOD ADD-ON Final Result Performing Organization Address [facility]/ZIP Co de Phone Number [facility] [address] [place] [address], [place] [facility] [place] [address] [place] [address] * ALT (Alanine Aminotransferase) (05/08/2025 12:35 PM CDT) Alanine Aminotransferase (ALT), P 40 7 - 45 U/L 05/08/2025 3:08 PM CDT [facility] Blood (Blood, Venous) 05/08/2025 12:35 PM CDT 05/08/2025 2:36 PM CDT Lito Pollock P.A.-C. LAB BLOOD ADD-ON Final Result Performing Organization Address City/[facility]/ZIP Co de Phone Number [facility] [address] [place] [address], [place] [facility] [place] [address] [place] [address] * Alkaline Phosphatase (05/08/2025 12:35 PM CDT) Alkaline Phosphatase, P 93 35 - 104 U/L 05/08/2025 3:08 PM CDT [facility] Blood (Blood, Venous) 05/08/2025 12:35 PM CDT 05/08/2025 2:36 PM CDT us Lito SladeC. LAB BLOOD ADD-ON Final Result Performing Organization Address City/[facility]/ZIP Co de Phone Number [facility] [address] [place] [address], [place] [facility] [place] [address] [place] [address] * Albumin (05/08/2025 12:35 PM CDT) Albumin, P 4.3 3.5 - 5.0 g/dL 05/08/2025 3:08 PM CDT [facility] Blood (Blood, Venous) 05/08/2025 12:35 PM CDT 05/08/2025 2:36 PM CDT us Lito Ferrer-C. LAB BLOOD ADD-ON Final Result [facility] [address] [place] [address], [place] 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 [address] [place] [address] [place] Hansen [phone] PCP - General Family Medicine 04/25/23 documented as of this encounter
--- OUTSIDE RECORDS SUMMARY | 2025-05-08 10:30 | XMS_ITS | Encounter Summary ---
Author Organization [facility] Address [address] [place] [address] Care Team Providers Care Remote Sensing Research Scientist Name Role Phone Renzo Andres M.D. Primary Care Provider [phone] Encounter Details Date Type Department Care Team (Latest Contact Info) Description 05/08/2025 10:30 AM CDT - 05/08/2025 11:59 PM CDT Hospital Encounter Department of Laboratory Medicine in [address] [phone] Lito Pollock P.A.-C. 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 I have a [facility] place to live 12/19/2024 Education Answer Date Recorded What is the highest level of school you have completed or the highest degree you have received? Some college, no degree 04/24/2019 Comments No Sex and Gender Information Value Date Recorded Sex Assigned at Female 12/26/2018 8:37 PM [employer] Legal Sex Female 2:43 PM [employer] Gender Identity Female 12/26/2018 8:37 PM [employer] Sexual Orientation Choose not to disclose 2020 3:46 PM CDT documented as of this encounter Medications at Time of Discharge acyclovir (Zovirax) 400 mg tabletIndication s: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 60 tablet 11 04/15/2025 ARIPiprazole (Abilify) 10 mg tablet Take 1 tablet (10 mg total) by mouth daily. Dose change 12/02/2024 30 tablet 5 04/15/2025 10/12/2025 cholecalciferol (Vitamin D3) 50 mcg (2,000 Unit) tablet Take 50 mcg by mouth daily. 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 120 capsule 5 04/29/2025 melatonin 5 mg tablet Take 5 mg by mouth at bedtime. 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 60 tablet 04/29/2025 gabapentin (Neurontin) 300 mg capsule Take 1-2 capsules (300-600 mg total) by mouth 2 (two) times a day. 04/29/25: Increase dose to 300 mg in AM and 600 mg at bedtime. 90 capsule 3 04/29/2025 05/29/2025 HYDROmorphone (Dilaudid) 1 mg/mL liquidIndication s:Chronic Pain/Nonacute Pain Take 0.5 mL (0.5 mg total) by mouth daily as needed for pain Indication: Chronic Pain/Nonacute Pain. 10 mL 04/29/2025 05/13/2025 LORazepam (Ativan) 0.5 mg tablet Take 1 tablet (0.5 mg total) by mouth at bedtime as needed for anxiety. 30 tablet 04/15/2025 05/29/2025 posaconazole (NoxafiL) [address] tabletIndication s: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),Transplant Bone Marrow Allogeneic (HCC) Take 3 tablets (300 mg total) by mouth daily. 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 60 tablet 1 04/15/2025 05/13/2025 documented as of this encounter Plan of Treatment Upcoming Encounters Date Type Department Care Team (Latest Contact Info) Description 06/12/2025 11:59 PM CDT Anesthesia Event Outpatient [facility] Center in [place], [place] [address] [place] [phone] Kristin Friend M.D. [address] [place] [phone] 06/15/2025 9:45 AM CDT Hospital Encounter Outpatient [facility] in [place], [place] [address] [place] [phone] Jessica Rousseau M.B.B.S. [address] [place] [phone] 06/15/2025 2:00 PM CDT [facility] [place], [place] [address] [place] [phone] Jessica Rousseau M.B.B.S. [address] [place] [phone] 06/24/2025 12:30 PM CDT Clinical Communication Virtual Review in [place], [place] 200 [place] [phone] 06/25/2025 8:10 AM CDT Lab Department of Laboratory Medicine and Pathology, [facility], in [place], [place] [address] [place] [phone] Tessa Jesus, KARON, C.N.P., D.N.P. [address] [place] [phone] 06/25/2025 9:00 AM CDT [facility] [place], [place] [address] [place] [phone] Tessa Jesus APRN, C.N.P., D.N.P. [address] [place] [phone] 06/25/2025 9:30 AM CDT Nurse Only [facility] in [place], [place] [address] [place] [phone] Tessa Jesus APRN, C.N.P., D.N.P. [address] [place] [phone] 06/25/2025 10:30 AM CDT Office Visit [facility] in [place], [place] [address] [place] [phone] Jessica Rousseau M.B.B.S. [address] [place] [phone] 06/25/2025 12:00 PM CDT Appointment Department of Radiology, [facility], in [place], [place] [address] [place] [phone] Arlen James APRN, C.N.P., D.N.P. [address] [place] [phone] 06/25/2025 12:40 PM CDT Appointment Department of Cardiovascular Diseases in [place], [place] [address] [place] [phone] Analia Carter APRN, C.N.P. [address] [place] [phone] Discharge Disposition: Home or Self Care 06/26/2025 10:00 AM CDT Telemedicine Department of Palliative Care in [place], [place] [address] [place] [phone] Isabel Sellers M.D. [address] [place] [phone] Debbie Shay M.D. [address] [place] [phone] 08/12/2025 10:40 AM CDT Nurse Only Section of Infectious Diseases in [place], [place] [address] [place] [phone] Jessica Rousseau M.B.B.S. 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) Transplant Stem Cell (HCC) ALANINE AMINOTRANSFERASE (ALT), S/P Routine 05/08/2025 12:35 PM CDT 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) Transplant Stem Cell (HCC) ASPARTATE AMINOTRANSFERASE (AST), S/P Routine 05/08/2025 12:35 PM CDT 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) Transplant Stem Cell (HCC) SODIUM, S/P Routine 05/08/2025 12:35 PM CDT 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) Transplant Stem Cell (HCC) POTASSIUM, S/P Routine 05/08/2025 12:35 PM CDT 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) Transplant Stem Cell (HCC) ALKALINE PHOSPHATASE, S/P Routine 05/08/2025 12:35 PM CDT 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) Transplant Stem Cell (HCC) MAGNESIUM, S Routine 05/08/2025 12:35 PM CDT 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) Transplant Stem Cell (HCC) LACTATE DEHYDROGENASE (LD), S Routine 05/08/2025 12:35 PM CDT 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) Transplant Stem Cell (HCC) GLUCOSE, FASTING, S/P Routine 05/08/2025 12:35 PM CDT 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) Transplant Stem Cell (HCC) Follow Up Examination Following Bone Marrow Transplant CREATININE WITH EGFR, S/P Routine 05/08/2025 12:35 PM CDT 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) Transplant Stem Cell (HCC) CALCIUM, TOT, S/P Routine 05/08/2025 12: 35 PM CDT 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 LAB BLOOD ADD-ON Final Result [facility] [address] [place] [address], [facility] in [place] [address] [place] [address] * CMV DNA Detect / Quant, Plasma (05/08/2025 12:35 PM CDT) [facility] CMV DNA Detect/Quant, P Undetected Undetected IU/mL 05/10/2025 4:10 PM CDT [facility] Comment: Result in log IU/mL is Undetected. ----ADDITIONAL INFORMATION---- The quantification range of this assay is 35 to 10,000,000 IU/mL (1.54 log to 7.00 log IU/mL). Testing was performed using the lucrecia CMV test ([employer] Blood (Blood, Venous) 05/08/2025 12:35 PM CDT 05/09/2025 7:46 AM CDT us Lito Pollock P.A.-C. LAB MICROBIOLOGY - BLOOD ORDER JANES Final Result Performing Organization Address City/[facility]/ZIP Co de Phone Number [facility] [address] [place] [address] [facility] [address] [place] [address] [place] [address] * LD (Lactate Dehydrogenase) (05/08/2025 12:35 PM CDT) [facility] Lactate Dehydrogenase (LD), P 158 122 - 222 U/L 05/08/2025 9:58 PM CDT [facility] Blood (Blood, Venous) 05/08/2025 12:35 PM CDT 05/08/2025 9:37 PM CDT us Lito SladeC. LAB BLOOD NON ADD-ON Final Res ult [facility] [address] [place] [address], [place] [facility] [address] [place] [address] * Sodium (05/08/2025 12:35 PM CDT) [facility] Sodium, P 139 135 - 145 mmol/L 05/08/2025 3:08 PM CDT [facility] Blood (Blood, Venous) 05/08/2025 12:35 PM CDT 05/08/2025 2:36 PM CDT Lito Ferrer-C. LAB BLOOD ADD-ON Final Result [facility] [address] [place] [address], [place] [facility] in [place] [address] [place] [address] * Potassium (05/08/2025 12:35 PM CDT) Potassium, P 4.4 3.6 - 5.2 mmol/L 05/08/2025 3:08 PM CDT [facility] Blood (Blood, Venous) 05/08/2025 12:35 PM CDT 05/08/2025 2:36 PM CDT Lito Ferrer-C. LAB BLOOD ADD-ON Final Result Performing Organization Address City/[facility]/ZIP Co de Phone Number [facility] [address] [place] [address], [place] [facility] in [place] [address] [place] [address] * Magnesium (05/08/2025 12:35 PM CDT) Magnesium, P 2.2 1.7 - 2.3 mg/dL 05/08/2025 3:08 PM CDT [facility] Blood (Blood, Venous) 05/08/2025 12:35 PM CDT 05/08/2025 2:36 PM CDT Lito Ferrer-C. LAB BLOOD ADD-ON Final Result [facility] [address] [place] [address], [place] [facility] in [place] [address] [place] [address] * (ABNORMAL) Glucose, Fasting (05/08/2025 12:35 PM CDT) Glucose, P 126(H) 70 - 100 mg/dL 05/08/2025 3:10 PM CDT [facility] Last Intake 1 hr 05/08/2025 2:34 PM CDT [facility] Blood (Blood, Venous) 05/08/2025 12:35 PM CDT 05/08/2025 2:34 PM CDT us Lito SladeC. LAB BLOOD NON ADD-ON Final Res ult Performing Organization Address City/[facility]/ZIP Co de Phone Number [facility] [address] [place] [address], [facility] in [place] [address] [place] [address] * Creatinine with Estimated GFR (05/08/2025 12:35 PM CDT) Creatinine 0.78 0.59 - 1.04 mg/dL 05/08/2025 3:08 PM CDT [facility] Estimated GFR (eGFR) >90 >=60 mL/min/BSA 05/08/2025 3:08 PM CDT [facility] Comment: Estimated GFR calculated using the 2020 CKD_EPI creatinine equation. Blood (Blood, Venous) 05/08/2025 12:35 PM CDT 05/08/2025 2:36 PM CDT us Lito SladeC. LAB BLOOD ADD-ON Final Result [facility] [address] [place] [address], [place] [facility] in [place] [address] [place] [address] * Calcium, Total (05/08/2025 12:35 PM CDT) Calcium, Total, P 9.4 8.6 - 10.0 mg/dL 05/08/2025 3:08 PM CDT [facility] Blood (Blood, Venous) 05/08/2025 12:35 PM CDT 05/08/2025 2:36 PM CDT Lito SladeC. LAB BLOOD ADD-ON Final Result Performing Organization Address [facility] Co de Phone Number [facility] [address] [place] [address], [facility] in [place] [address] [place] [phone] * BUN (Blood Urea Nitrogen) (05/08/2025 12:35 PM CDT) BUN (Blood Urea Nitrogen), P 9 6 - 21 mg/dL 05/08/2025 3:08 PM CDT [facility] Blood (Blood, Venous) 05/08/2025 12:35 PM CDT 05/08/2025 2:36 PM CDT Lito SladeC. LAB BLOOD ADD-ON Final Result Performing Organization Address [facility] Co de Phone Number [facility] [address] [address], [facility] in [place] [address] [place] [address] * Bilirubin, Total (05/08/2025 12:35 PM CDT) Bilirubin, Total, P 0.2 0.0 - 1.2 mg/dL 05/08/2025 3:08 PM CDT [facility] Blood (Blood, Venous) 05/08/2025 12:35 PM CDT 05/08/2025 2:36 PM CDT Lito Pollock P.A.-C. LAB BLOOD ADD-ON Final Result [facility] [address] [place] [address], [place] [facility] [facility] in [place] [address] [place] [address] * AST (Aspartate Aminotransferase) (05/08/2025 12:35 PM CDT) Aspartate Aminotransferase (AST), P 37 8 - 43 U/L 05/08/2025 3:08 PM CDT [facility] Blood (Blood, Venous) 05/08/2025 12:35 PM CDT 05/08/2025 2:36 PM CDT us Lito Pollock P.A.-C. LAB BLOOD ADD-ON Final Result Performing Organization Address City/[facility]/ZIP Co de Phone Number [facility] [address] [place] [address], [place] [facility] [facility] in [place] [address] [place] [address] * ALT (Alanine Aminotransferase) (05/08/2025 12:35 PM CDT) Alanine Aminotransferase (ALT), P 40 7 - 45 U/L 05/08/2025 3:08 PM CDT [facility] Blood (Blood, Venous) 05/08/2025 12:35 PM CDT 05/08/2025 2:36 PM CDT us Lito Pollock P.A.-C. LAB BLOOD ADD-ON Final Result [facility] [address] [place] [address], [place] [facility] in [place] [address] [place] [address] * Alkaline Phosphatase (05/08/2025 12:35 PM CDT) Alkaline Phosphatase, P 93 35 - 104 U/L 05/08/2025 3:08 PM CDT [facility] Blood (Blood, Venous) 05/08/2025 12:35 PM CDT 05/08/2025 2:36 PM CDT us Lito MandujanoAKatalina-C. LAB BLOOD ADD-ON Final Result Performing Organization Address City/[facility]/ZIP Co de Phone Number [facility] [address] [place] [address], [place] [facility] [facility] in [place] [address] [place] [address] * Albumin (05/08/2025 12:35 PM CDT) Albumin, P 4.3 3.5 - 5.0 g/dL 05/08/2025 3:08 PM CDT [facility] Blood (Blood, Venous) 05/08/2025 12:35 PM CDT 05/08/2025 2:36 PM CDT us Lito MandujanoA.-C. LAB BLOOD ADD-ON Final Result Performing Organization Address [facility] Co de Phone Number 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 [address] [place] [address] [place] [phone] PCP - General Family Medicine 6/7/23 documented as of this encounter
--- OUTSIDE RECORDS SUMMARY | 2025-05-17 13:59 | XMS_ITS | Encounter Summary ---
Author Organization [facility] Address [address] [place] [address] Care Team Providers Care Receiver Bulk System Name Role Phone Renzo Andres M.D. 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, Ninth Floor [address] [place] [address] Renita Potts APRN, C.N.P., D.N.P. 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 I have a [facility] place to live 12/19/2024 Education Answer Date Recorded What is the highest level of school you have completed or the highest degree you have received? Some college, no degree 04/24/2019 Comments No Sex and Gender Information Value Date Recorded Sex Assigned at Female 12/26/2018 8:37 PM NURSING ADMINISTRATOR Legal Sex Female 2:43 PM NURSING ADMINISTRATOR Gender Identity Female 12/26/2018 8:37 PM NURSING ADMINISTRATOR Sexual Orientation Choose not to disclose 2020 [...] at bedtime. 90 capsule 3 04/29/2025 5 LORazepam (Ativan) 0.5 mg tablet Take [...] SUBJECTIVE TRANSPLANT PHYSICIAN Dr. Jessica Rousseau, pager [phone] CHIEF COMPLAINT/REASON FOR VISIT Ms. Radha Martinez [...] reticulin fibrosis noted. The cytogenetics identified a [place] chromosome in 20 metaphases. The BCR-ABL1 P [...] t(9;22) metaphases. 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 06/17/2024: feeling quite symptomatic since the [...] Access Camargo CVC placed on 12/03/24 by [facility]. Social Work Seen and cleared [...] prophylaxis: Ursodiol [address] 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 [id number]% donor DNA and approximately 0% recipient DNA. [...] right eye. Wears glasses. - Followed by [facility] in [place], [place]. - Patient will notify team if any vision changes. # Blood Products # TACO - Requires infusion of platelets at a slower rate # Disposition - Follow-up labs, pharmacy, RN/provider in three weeks. - Local labs at [facility] in 10 days. Renita Potts APRN, C.N.P., D.N.P. documented in this encounter Plan of Treatment Upcoming Encounters Date Type Department Care Team (Latest Contact Info) Description 06/12/2025 11:59 PM CDT Anesthesia Event Outpatient Procedure Center in [place], [place] [address] [place] [address] Kristin Friend M.D. [address] [place] [phone] 06/15/2025 9:45 AM CDT Hospital Encounter Outpatient Procedure Center in [place], [place] [address] [place] [phone] Jessica Rousseau M.B.B.S. [address] [place] [phone] 06/15/2025 2:00 PM CDT [facility] [place] [place] [facility] in [place], [place] [address] [place] [phone] Jessica Rousseau M.B.B.S. [address] [place] [phone] 06/24/2025 12:30 PM CDT Clinical Communication Virtual Review in [place], [place] 200 [place] [address] 06/25/2025 8:10 AM CDT Lab Department of Laboratory Medicine and Pathology, [facility] in [place], [place] [address] [place] [phone] Tessa Jesus APRN, C.N.P., D.N.P. [address] [place] [phone] 06/25/2025 9:00 AM CDT [facility] [place] [place] [facility] in [place], [place] [address] [place] [phone] Tessa Jesus APRN, C.N.P., D.N.P. [address] [place] [phone] 06/25/2025 9:30 AM CDT Nurse Only [facility] for Transplantation and Clinical Regeneration in [place], [place] [address] [place] [phone] Tessa Jesus APRN, C.N.P., D.N.P. [address] [place] [phone] 06/25/2025 10:30 AM CDT Office Visit Pedro sanchez [facility] for Transplantation and Clinical Regeneration in [place], [place] [address] [place] [phone] Jessica Rousseau M.B.B.S. [address] [place] [phone] 06/25/2025 12:00 PM CDT Appointment Department of Radiology, [facility], in [place], [place] [address] [place] [phone] Arlen James APRN, C.N.P., D.N.P. [address] [place] [phone] 06/25/2025 12:40 PM CDT Appointment Department of Cardiovascular Diseases in [place], [place] [address] [place] [phone] nAalia Carter APRN, C.N.P. [address] [place] [phone] Discharge Disposition: Home or Self Care 06/26/2025 10:00 AM CDT Telemedicine Department of Palliative Care in [place], [place] [address] [place] [phone] Isabel Sellers M.D. [address] [place] [phone] Debbie Shay M.D. [address] [place] [phone] 08/12/2025 10:40 AM CDT Nurse Only Section of Infectious Diseases in [place], [place] [address] [place] [phone] Jessica Rousseau M.B.B.S. [address] [place] [phone] Scheduled Referrals Name Type Priority Associated Diagnoses [...] LAB MICROBIOLOGY - GENERAL ORDERABLES Final Result [facility] [address] 200 [place] [address] * Bacteria / Helen Culture, Blood #1 (05/17/2025 3:43 PM CDT) [facility] Bacteria/Yulia da Culture, Blood No growth after 5 days of incubation. 05/22/2025 5:02 PM CDT DT Blood (Blood, Peripheral Draw) 05/17/2025 3:43 PM CDT 05/17/2025 4:50 PM CDT Comment:Specimen Source Site : Blood Renita Potts APRN, C.N.P. , D.N.P. LAB MICROBIOLOGY - GENERAL ORDERABLES Final Result [facility] [address] 200 [place] [address] * Lactate for Sepsis with Reflex (05/17/2025 3:43 PM CDT) [facility] Lactate, P 1.6 0.5 - 2.2 mmol/L 05/17/2025 4:55 PM CDT DT Blood (Blood, Venous) 05/17/2025 3:43 PM CDT 05/17/2025 4:41 PM CDT Renita Potts APRN, C.N.P., D.N.P. LAB BLOOD N ON ADD-ON Final Result [facility] [address] 200 [place] [address] * Magnesium (05/17/2025 3:43 PM CDT) [facility] Magnesium, S 2.3 1.7 - 2.3 mg/dL 05/17/2025 4:59 PM CDT DTL Blood (Blood, Venous) 05/17/2025 3:43 PM CDT 05/17/2025 4:42 PM CDT us Renita Potts APRN, C.N.P., D.N.P. LAB BLOOD A DD-ON Final Result [facility] [address] [place] [address], [facility] DTL [facility] [address] [place] [address] * Comprehensive Metabolic Panel (05/17/2025 3:43 PM CDT) Pathologist [facility] Potassium, S 4.2 3.6 - 5.2 mmol/L [...] D.N.P. LAB BLOOD A DD-ON Final Result [facility] [address] [place] [address], [facility] [address] [place] [address] * CBC no call back, reflex T/S [...] ON ADD-ON Final Result Performing Organization Address City/[facility]/ZIP Co de Phone Number [facility] [address] [facility] [address] [place] [address] * Clostridioides (Clostridium) Difficile Toxin, Molecular Detection, PCR, Feces (05/17/2025 2:42 PM CDT) C. difficile Toxin, F Negative Negative 05/17/2025 3:59 PM CDT DTL Stool (Stool) 05/17/2025 2:4 2 PM CDT 05/17/2025 3:13 PM CDT us Tiffani Leroy APRN, C.N.P., D.N.P. 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 [address] [place] [phone] PCP - General Family Medicine 04/25/23 documented as of this encounter
--- OUTSIDE RECORDS SUMMARY | 2025-05-20 09:00 | XMS_ITS | Encounter Summary ---
Author Organization [facility] Address [address] [place] [address] Care Team Providers Care Heavy Equipment Sales Associate Name Role Phone Renzo Andres M.D. Primary Care Provider [phone] Reason for Visit * Outpatient (Routine) - Closed Specialty Diagnoses / Procedures Referred By Estefania t Referred To Contact Pharmacy Lito Pollock P.A.-C. [address] [place] [phone] Phone: tel: fax: [facility] Referral ID Status Reason Start Date Expiration Date Visits Re quested Visits Authorized [id number] Closed 04/29/2025 10/29/2026 1 1 Encounter Details Date Type Department Care Team (Latest Contact Info) Description 05/20/2025 9:00 AM CDT [facility] [place], [place] [address] [place] [phone] Lito Pollock P.A.-C. [address] [place] [address] [phone] Nelli Parker, Pharm.D., R.Ph. [address] [place] [phone] Transplant Bone Marrow Allogeneic (HCC) (Primary Dx) Discharge Disposition: Home or Self Care Social History Tobacco Use Types Packs/Day Years Used Date Smoking Tobacco: Never Smokeless Tobacco: Never Alcohol Use Standard Drinks/Week Comments Yes 0 (1 standard drink = 0.6 oz pur e alcohol) social [facility] Utilities Answer Date Recorded In [...] your living situation today? I have a [facility] place to live 12/19/2024 Education Answer Date Recorded What is the highest level of school you have completed or the highest degree you have received? Some college, no degree 04/24/2019 Comments No Sex and Gender Information Value Date Recorded Sex Assigned at Female 12/26/2018 8:37 PM POWDER ROOM ATTENDANT Legal Sex Female 2:43 PM POWDER ROOM ATTENDANT Gender Identity Female 12/26/2018 8:37 PM POWDER ROOM ATTENDANT Sexual Orientation Choose not to disclose 2020 3:46 PM CDT documented as of this encounter Last Filed Vital Signs Vital Sign Reading Time Taken Comments Blood Pressure 129/85 05/20/2025 8:56 AM CDT Pulse 89 05/20/2025 8:56 AM CDT Temperature 36.5 C (97.7 F) 05/20/2025 8:56 AM CDT Respiratory Rate - - Oxygen Saturation - - Inhaled Oxygen Concentration - - Weight 103 kg (227 lb 13.5 oz) 05/20/2025 8:56 A M CDT Height - - Body Mass Index 34.49 04/08/2025 11:32 AM CDT documented in this encounter Progress Notes * Nelli Parker, Pharm.D., R.Ph. - 05/20/2025 9:00 AM CDT Medication Management Services ([facility]) SUBJECTIVE Radha Martinez is a 35 y.o. female, who is seen by the [facility] Pharmacist for targeted medication review. She was referred by Lito Pollock P.A.-C. per departmental standard of care. Patient doesNOT appear cognitively impaired at this visit. Patient was at the visit unaccompanied. The purpose of the visit is: post-transplant medication review. The following portions of the patient's history were reviewed and updated as appropriate: Allergies[1], Current Medications[2], Family History[3], Medical History[4], Social History[5] (including tobacco, alcohol and illicit drug use), Surgical History[6], and Problem List[7]. Ms. 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 She reports medication list is up to date. 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 She reported that stools are becoming more formed, never started loperamide. She does share that nausea has presented over the last couple of days, notcurrently taking any medications, but in the past has used prochlorperazine and ondansetron-ODT. She describes nausea is worst in the AM, even waking up with dry heaving. She denies rash. She reportsongoing fatigue which she attributes more to her pain and neuropathy. Her Cr and LFTs are pending; she is no longer on ursodiol. Her BP was 129/85 mm Hg today on no antihypertensives. Addition: Cr 0.90 mg/dL, LFTs normal. Per note, plan to re-trial prochlorperazine. 3. Neuropathy/Pain Ms. Martinez is following with palliative for ongoing neuropathy. She continues on duloxetine 120 mg daily, gabapentin 600 mg TID, and hydromorphone solution 0.5 mL as needed most nights. She reportsthe gabapentin is not alleviating symptoms and plans to discuss optimizing dosing strategy or transitioning to pregabalin with palliative next week. She also reports using lorazepam 0.5 mg at bedtimeas needed for anxiety approximately three times per week. 4. New prescriptions Per collaborative practice agreement, additional refills were sent for prochlorperazine. Patient and/or caregiver(s) expressed understanding of, and agreement with plan of care and was notprovided with a summary of these recommendations as this was deferred to collaborating provider.Total time spent was 15 minutes, with more [...] 5 gabapentin (Neurontin) 300 mg capsule Take 1-2 capsules (300-600 mg total) by mouth 2 (two) times aday. 04/29/25: Increase dose to 300 mg in AM and 600 mg at bedtime. (Patient taking differently: Take 600 mg by mouth 3 (three) times a day. 04/29/25: Increase dose to 300 mg in AM and 600 mg at bedtime.) 90 capsule 3 HYDROmorphone (Dilaudid) 1 mg/mL liquid Take 0.5 mL (0.5 mg total) by mouth daily as needed for pain Indication: Chronic Pain/Nonacute Pain. 10 mL 0 loperamide (Imodium A-D) 2 mg capsule Take 1 capsule (2 mg total) by mouth every 2 (two) hours as needed for diarrhea. Take with occurrence of diarrhea. May take up to 16 mg, or 8 doses daily. LORazepam (Ativan) 0.5 mg tablet Take 1 tablet (0.5 mg total) by mouth at bedtime as needed for anxiety. 30 tablet 0 melatonin 5 mg tablet Take 5 mg by mouth at bedtime. penicillin V potassium (Veetids) 500 mg tablet Take 1 tablet (500 mg total) by mouth 2 (two) times a day. 60 tablet 11 posaconazole (NoxafiL) [address] tablet Take 3 tablets (300 mg total) by mouth daily. 90 tablet 0 sulfamethoxazole-trimethoprim (Bactrim) 400-80 mg per tablet Take 1 tablet by mouth daily. 60 tablet 1 No current facility-administered medications for this visit. [3] Family History Problem Relation Name Age of Onset Hypertension Mother gabrielle martinez Depression Mother gabrielle martinez Anxiety disorder Mother gabrielle martinez Cystic fibrosis Brother No Known Problems Son Rashid Depression Brother shena martinez Anxiety disorder Brother shena martinez Psychiatric Maternal Grandmother nancy Breast cancer Maternal Grandmother nancy Psychiatric Maternal Grandfather silvia mogleah Skin cancer Paternal Grandfather Berkley vega [4] [...] Camargo; Surgeon: Brianna Hernandez M.D., Ph.D.; Location: [facility] OR [7] Patient Active Problem List Diagnosis [...] Neuropathic Depressive Disorder Transplant Stem Cell (HCC) documented in this encounter Plan of Treatment Upcoming Encounters Date Type Department Care Team (Latest Contact Info) Description 06/12/2025 11:59 PM CDT Anesthesia Event Outpatient Procedure Center in [place], [place] [address] [place] [phone] Kristin Friend M.D. [address] [place] [phone] 06/15/2025 9:45 AM CDT Hospital Encounter Outpatient Procedure Center in [place], [place] [address] [place] [phone] Jessica Rousesau M.B.B.S. [address] [place] [phone] 06/15/2025 2:00 PM CDT Office Visit Pedro sanchez [facility] for Transplantation and Clinical Regeneration in [place], [place] [address] [place] [phone] Jessica Rousseau M.B.B.S. [address] [place] [phone] 06/24/2025 12:30 PM CDT Clinical Communication Virtual Review in [place], [place] 200 [place] [phone] 06/25/2025 8:10 AM CDT Lab Department of Laboratory Medicine and Pathology, [facility], in [place], [place] [address] [place] [phone] Tessa Jesus, KARON, C.N.P., D.N.P. [address] [place] [address] [place] [phone] 06/25/2025 9:00 AM CDT [facility] in [place], [place] [address] [place] [address] Tessa Jesus APRN, C.N.P., D.N.P. [address] [place] [phone] 06/25/2025 9:30 AM CDT Nurse Only [facility] Transplantation and Clinical Regeneration in [place], [place] [address] [place] [phone] Tessa Jesus APRN, C.N.P., D.N.P. [address] [place] [phone] 06/25/2025 10:30 AM CDT Office Visit [facility] in [place], [place] [address] [place] [phone] Jessica Rousseau M.B.B.S. [address] [place] [phone] 06/25/2025 12:00 PM CDT Appointment Department of Radiology, [facility], in [place], [place] [address] [place] [phone] Arlen James APRN, C.N.P., D.N.P. [address] [place] [phone] 06/25/2025 12:40 PM CDT Appointment Department of Cardiovascular Diseases in [place], [place] [address] [place] [phone] Analia Carter APRN, C.N.P. [address] [place] [phone] Discharge Disposition: Home or Self Care 06/26/2025 10:00 AM CDT Telemedicine Department of Palliative Care in [place], [place] [address] [place] [phone] Isabel Sellers M.D. [address] [place] [phone] Debbie Shay M.D. [address] [place] [phone] 08/12/2025 10:40 AM CDT Nurse Only Section of Infectious Diseases in [place], [place] [address] [place] [phone] Jessica Rousseau M.B.B.S. [address] [place] [phone] documented as of this encounter Visit Diagnoses Diagnosis Transplant Bone Marrow Allogeneic (HCC)- Primary documented in this encounter Additional Health Concerns Infection Onset Date Last Indicated Resolved Time Protective Environment 03/02/2023 03/02/2023 Assessment Noted Time PHQ-9 Depression Total Score: 2 12/10/19 25 2:46 PM POWDER ROOM ATTENDANT documented as of this encounter Care Teams Heavy Equipment Sales Associate Relationship Specialty Start Date End Date Renzo Andres M.D. [address] [place] [phone] PCP - General Family Medicine 04/25/23 documented as of this encounter
--- OUTSIDE RECORDS SUMMARY | 2025-05-20 09:30 | XMS_ITS | Encounter Summary ---
Author Organization [facility] Address [address] [place] [id number] Care Team Providers Care Guard Entrance Registrar Name Role Phone Renzo Andres M.D. Primary Care Provider Reason for Referral * Transplant (Routine) - Closed Specialty Diagnoses / Procedures Referred By Estefania acosta Referred To Contact Transplant Tessa Jesus APRN, C.N.PKatalina, D.N.P. [address] [place] [phone] Phone: tel: fax: [facility] Referral ID Status Reason Start Date Expiration Date Visits Re quested Visits Authorized [id number] Closed 05/20/2025 11/19/2026 1 1 * Outpatient (Routine) - Authorized Specialty Diagnoses / Procedures Referred By Contac t Referred To Contact Pharmacy Tessa Jesus APRN, C.N.P., D.N.P. [address] [place] [phone] Phone: tel: fax: [facility] Referral ID Status Reason Start Date Expiration Date V isits Requested Visits Authorized [id number] Authorized 05/20/2025 11/19/2026 1 1 Scheduling Instructions Please schedule with pharmacist for 30 minutes. Patient type: Allo Over 100 Visit Type: Return Scheduling Preferences Option 1: Primary MD only/RN Option 2: Primary MD only/RN Other Scheduling Instructions: Please schedule approximately 1 week after BmBx on 06/15 Primary MD: Dr Rousseau RN Team: t Bmt Team [facility] [place] * Transplant (Routine) - Authorized Specialty Diagnoses / Procedures Referred By Contac t Referred To Contact Transplant Tessa Jesus APRN, C.N.P., D.N.P. [address] [place] [phone] Phone: tel: fax: [facility] Referral ID Status Reason Start Date Expiration Date V isits Requested Visits Authorized [id number] Authorized 05/20/2025 11/19/2026 1 1 Scheduling Instructions Please schedule with BMT MD for 30 minutes. Patient type: Allo Over 100 Visit Type: Return Scheduling Preferences Option 1: Primary MD only/RN Option 2: Primary MD only/RN Other Scheduling Instructions: Please schedule approximately 1 week after BmBx on 06/15 Primary MD: Dr Rousseau RN Team: [facility] Bmt Team [place] * Transplant (Routine) - Authorized Specialty Diagnoses / Procedures Referred By Contac t Referred To Contact Transplant Tessa Jesus APRN, C.N.P., D.N.P. [address] [place] [phone] Phone: tel: fax: [facility] Referral ID Status Reason Start Date Expiration Date V isits Requested Visits Authorized [id number] Authorized 05/20/2025 11/19/2026 1 1 Scheduling Instructions Please schedule with RNCC for 30 min Patient type: Allo Over 100 Visit Type: Return Scheduling Preferences Option 1: Primary MD only/RN Option 2: Primary MD only/RN Other Scheduling Instructions: Please schedule approximately 1 week after BmBx on 06/15 Primary MD: Dr Rousseau RN Team: Rst Bmt Team [facility] [place] Reason for Visit * Reason Comments Nurse Visit * Transplant (Routine) - Closed Specialty Diagnoses / Procedures Referred By Estefania t Referred To Contact Transplant Lito Pollock P.A.-C. [address] [place] [phone] Phone: tel: fax: [facility] Referral ID Status Reason Start Date Expiration Date Visits Re quested Visits Authorized [id number] Closed 04/29/2025 10/29/2026 1 1 Encounter Details Date Type Department Care Team (Latest Contact Info) Description 05/20/2025 9:30 AM CDT [facility] [place], [place] [address] [place] [phone] Lito Pollock P.A.-C. 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 I have a [facility] place to live 12/19/2024 Education Answer Date Recorded What is the highest level of school you have completed or the highest degree you have received? Some college, no degree 04/24/2019 Comments No Sex and Gender Information Value Date Recorded Sex Assigned at Female 12/26/2018 8:37 PM FUEL CELL SYSTEMS ENGINEER Legal Sex Female 2:43 PM FUEL CELL SYSTEMS ENGINEER Gender Identity Female 12/26/2018 8:37 PM FUEL CELL SYSTEMS ENGINEER Sexual Orientation Choose not to disclose 2020 3:46 PM CDT documented as of this encounter Progress Notes * Tessa Jesus, KARON, C.N.P., D.N.P. - 05/20/2025 9:30 AM CDT SUBJECTIVE TRANSPLANT PHYSICIAN Dr. Jessica Rousseau, pager [phone] CHIEF COMPLAINT/REASON FOR VISIT Ms. Radha Martinez is a 35 y.o. female with a past medical history significant for CML who is seentoday for ongoing follow up status post a matched, unrelated donor allogeneic stem cell transplant.Currently Day +161 HISTORY OF PRESENT ILLNESS Please refer to multiple prior notes in EMR for complete hematologic history: Ms. Martinez is a 35 y.o. 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 At the time of diagnosis, there was grade 3 reticulin fibrosis noted. The cytogenetics identified a [place] chromosome in 20 metaphases. The BCR-ABL1 P [...] t(9;22) metaphases. 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 06/17/2024: feeling quite symptomatic since the [...] Access [place] CVC placed on 12/03/24 by [facility]. Social Work Seen and cleared [...] prophylaxis: Ursodiol 600 mg two times daily. [facility] ID Number: [id number] [...] cloacae UTI, treated with Ciprofloxacin INTERVAL HISTORY 05/20/25 Day+161 Radha Martinez presents to [place] [address] for routine follow-up. Main concern today for her is new onset of nausea with occasional dry heaving in the morning. She has not been taking anything to alleviate and says that it does dissipate on its own within a few hours. She will start taking Compazine in the morning when she wakes up to see if this helps. She was previously experiencing loosestools when she was last seen on outpatient [facility], she states that stools are now formed. She denies any abdominal pain or cramping. Patient with ongoing lower extremity pain/achiness and she isbeing followed by palliative care. She is currently taking gabapentin, Cymbalta, and hydromorphone.She has a follow up appointment with palliative care on May 25. Endorses having occasional dry eyes since she is going to try utilizing refresh eyedrops. She also feels her astigmatism is worst periods notes that she received a new prescription prior to transplant and is making arrangements for follow up in ophthalmology. She denies any dry mouth. Denies any rash or changes in her skin. Patient is aware to call us if her nausea worsens. We plan to follow up with a video visit to assess her nausea in approximately 2 weeks. She is also scheduled for immunizations later this month and then a bone marrow biopsy as well. We will try to arrange a return [place] [address] Soham parekh days after bone marrow biopsy so they can go over results. REVIEW OF SYSTEMS: A 10-point review of systems was conducted. Positive findings are noted in the interval history above. . OBJECTIVE There were no vitals filed for this visit. Weight: 103 kg (05/17/2025 2:02 PM) Height: 173.1 cm (04/08/2025 11:32 AM) PHYSICAL EXAM General appearance The patient is a 35 -year-old female in no acute distress. Head, eyes, ears, neck and throat: No conjunctival injection is noted. Oropharynx is clear. Mouth revealed no lesions. Lungs: Breath sounds are equal and clear bilaterally. No wheezes, rhonchi, or rales. Heart: Regular rate and rhythm with normal S1 and S2. No murmurs, gallops, or rubs. Abdomen: Soft, non-distended. No mass, tenderness, guarding, or rebound. Bowel sounds are present in all four quadrants. Extremities: No cyanosis, clubbing, or edema. Neurological: Cranial nerves II through XII are grossly intact. Psychiatric: The patient is awake, alert, and oriented x3. Recent and remote memory is intact. Appropriate mood and affect. Skin: Warm, dry, and well perfused. No lesions, nodules or rashes are noted. LTCVC without evidenceof infection or pain to palpation. KPS: 90% DIAGNOSTICS No results found for this or any previous visit (from the past 24 hours). Current Outpatient Medications Medication Instructions acyclovir (ZOVIRAX) 400 mg, oral, 2 times daily ARIPiprazole (ABILIFY) 10 mg, oral, Daily, Dose change 12/02/2024 cholecalciferol (VITAMIN D3) 50 mcg, Daily DULoxetine (CYMBALTA) 120 mg, oral, Daily gabapentin (NEURONTIN) 300-600 mg, oral, 2 times daily, 04/29/25: Increase dose to 300 mg in AM and 600 mg at bedtime. HYDROmorphone (DILAUDID) 0.5 mg, oral, Daily PRN loperamide (IMODIUM A-D) 2 mg, oral, Every 2 hour PRN, Take with occurrence of diarrhea. May take up to 16 mg, or 8 doses daily. LORazepam (ATIVAN) 0.5 mg, oral, Bedtime PRN [...] allogeneic stem cell transplant (HCC), Currently day +161 # Immunodeficiency (HCC) secondary immunosuppressive medication - [...] donor DNA and approximately 40% recipient DNA. [id number]% donor DNA and approximately 0% recipient DNA. [...] night sweats - C-diff negative from 05/17. PRN Imodium as needed. - Infectious work-up with peripheral blood cultures from 05/17 NGTD. Lactate 1.6, nonelevated. # GVHD Prophylaxis - Received PTCy; MMF was stopped per protocol. -Tacrolimus discontinued 04/17/2025 ACUTE GVHD (CIBMTR CRITERIA) Current Severity 05/20/2025 Skin Stage Stage 0 (No GVHD rash) Liver Stage Stage 0 (Normal bilirubin) Gut Stage Stage 0 (Diarrhea <500 mL/day) Overall Grade Grade 0 (No acute GVHD) Change from previous evaluation: Stable Maximum overall grade (and date): Grade 0 7/2/2 Late aGVHD: Other comments: Diagnostic tests: Treatment : Tacrolimus discontinued 04/17/2025 Response to tt : # Antimicrobial Prophylaxis - Continues on Acyclovir, [...] right eye. Wears glasses. - Followed by [facility] in [place], [place]. - Patient will notify team if any vision changes. # Blood Products # TACO - Requires infusion of platelets at a slower rate # Disposition - We will arrange for a video visit in approximately 2 weeks. Request follow up [place] appointment with in early June. Tessa Jesus APRN, C.N.P., D.N.P. * Lida Olivas R.N. 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 Day 0 =12/10/2024 (161 days). Please see previous notes regarding patient's history. Patient seen in conjunction with Tessa Jesus APRN, C.N.P., [place]. Please see their note for a full systems review. KPS: 80 Since last evaluation, the patient reports the following: General Symptoms: Reports that her fatigue is worse at about a 6/10 when previously it was a 4/10. She is still able to do her daily activities, eat, and drink. Eyes: Dry eyes, is picking up refresh eye drops today. Is unable to drive at night d/t her astigmatism. Is going to set up a eye appointment locally as she is on a waitlist with [place]. GI: experiencing nausea and dry heaving in the morning that lasts until around 11am the past few days. Is going to start taking Compazine again right away in the morning and let us know if there is no improvement. Extremities: Peripheral neuropathy continues and feels the Gabapentin is not helping. Will manage with palliative on 05/25/25 appointment Experiencing night sweats for the last month Plan of care discussed with provider: Patient's transition from Hospital Based Outpatient to Outpatient BMT was completed on 12/31/2024. New medication changes with this visit: Start Compazine every morning Pending Results: Allo Labs Interim Plans: Palliative care visit on 05/25/25. First set of immunizations scheduled for 06/09/25. BMBX scheduled on 06/15/25. Lab Plan: Future BMT Appointments: BMT video visit in 2 weeks to check in with nausea, no need for labs prior. BMT visit with Pharm/RN/Provider and allo labs in 1 month, around 1 [address]. Per Dr. Rousseau, we will continue to check BCR/ABL p210 on peripheral blood every 6 weeks, completed 04/29/25, normal, check every 2 months. If nausea is not resolved with Compazine, next steps would be to try Zyprexa and a possible scope. All questions answered, patient verbalized understanding of plan, patient will call with any additional questions or concerns prior to return appointment. Lida Olivas R.N. documented in this encounter Plan of Treatment Upcoming Encounters Date Type Department Care Team (Latest Contact Info) Description 06/12/2025 11:59 PM CDT Anesthesia Event Outpatient Procedure Center in [place], [place] [address] [place] [phone] Kristin Friend M.D. [address] [place] [phone] 06/15/2025 9:45 AM CDT Hospital Encounter Outpatient [facility] in [place], [place] [address] [place] [phone] Jessica Rousseau M.B.B.S. [address] [place] [phone] 06/15/2025 2:00 PM CDT [facility] [place], [place] [address] [place] [phone] Jessica Rousseau M.B.B.S. [address] [place] [phone] 06/24/2025 12:30 PM CDT Clinical Communication Virtual Review in [place], [place] 200 [place] [phone] 06/25/2025 8:10 AM CDT Lab Department of Laboratory Medicine and Pathology, [facility], in [place], [place] [address] [place] [address], [place] [phone] Tessa Jesus APRN, C.N.P., D.N.P. [address] [place] [phone] 06/25/2025 9:00 AM CDT [facility] [place], [place] [address] [place] [address] Tessa Jesus APRN, C.N.P., D.N.P. [address] [place] [phone] 06/25/2025 9:30 AM CDT Nurse Only [facility] Transplantation and Clinical Regeneration in [place], [place] [address] [place] [phone] Tessa Jesus APRN, C.N.P., D.N.P. [address] [place] [phone] 06/25/2025 10:30 AM CDT Office [facility] [place], [place] [address] [place] [address] Jessica Rousseau M.B.B.S. [address] [place] [phone] 06/25/2025 12:00 PM CDT Appointment Department of Radiology, [facility], in [place], [place] [address] [place] [phone] Arlen James APRN, C.N.P., D.N.P. [address] [place] [phone] 06/25/2025 12:40 PM CDT Appointment Department of Cardiovascular Diseases in [place], [place] [address] [place] [phone] Analia Carter, KARON, C.N.P. [address] [place] [phone] Discharge Disposition: Home or Self Care 06/26/2025 10:00 AM CDT Telemedicine Department of Palliative Care in [place], [place] [address] [place] [phone] Isabel Sellers M.D. [address] [place] [phone] Debbie Shay M.D. [address] [place] [phone] 08/12/2025 10:40 AM CDT Nurse Only Section of Infectious Diseases in [place], [place] [address] [place] [phone] Jessica Rousseau M.B.B.S. 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) Transplant Stem Cell (HCC) Expected: 06/22/2025 (Approximate), Expires: 08/20/2026 AST (Aspartate Aminotransferase) Lab Routine 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) Transplant Stem Cell (HCC) Expected: 06/22/2025 (Approximate), Expires: 08/20/2026 Bilirubin, Total Lab Routine 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) Transplant Stem Cell (HCC) Expected: 06/22/2025 (Approximate), Expires: 08/20/2026 BUN (Blood Urea Nitrogen) Lab Routine 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) Transplant Stem Cell (HCC) Expected: 06/22/2025 (Approximate), Expires: 08/20/2026 Calcium, Total Lab Routine 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) Transplant Stem Cell (HCC) Expected: 06/22/2025 (Approximate), Expires: 08/20/2026 CBC no call back, reflex T/S HGB <8 Lab Routine 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) Transplant Stem Cell (HCC) Expected: 06/22/2025 (Approximate), Expires: 08/20/2026 Creatinine with Estimated GFR Lab Routine 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) Transplant Stem Cell (HCC) Expected: 06/22/2025 (Approximate), Expires: 08/20/2026 Glucose, Fasting Lab Routine 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) Transplant Stem Cell (HCC) Expected: 06/22/2025 (Approximate), Expires: 08/20/2026 Magnesium Lab Routine 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) Transplant Stem Cell (HCC) Expected: 06/22/2025 (Approximate), Expires: 08/20/2026 Potassium Lab Routine 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) Transplant Stem Cell (HCC) Expected: 06/22/2025 (Approximate), Expires: 08/20/2026 Sodium Lab Routine 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) Transplant Stem Cell (HCC) Expected: 06/22/2025 (Approximate), Expires: 08/20/2026 LD (Lactate Dehydrogenase) Lab Routine 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) Transplant Stem Cell (HCC) Expected: 06/22/2025 (Approximate), Expires: 08/20/2026 BCR/ABL1, p210, mRNA Detection, Reverse Tumbler Operator-PCR (RT-PCR), Quantitative, Monitoring Chronic Myeloid Leukemia (CML) Lab Routine 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) Transplant Stem Cell (HCC) Expected: 06/22/2025 (Approximate), Expires: 08/20/2026 Scheduled Referrals Name Type Priority Associated Diagnoses Order Schedule Transplant Bone marrow office visit (clinic) Outpatient Referral Routine Expected: 06/22/2025 (Approximate), Expires: 08/20/2026 Transplant Bone marrow office visit (clinic) Outpatient Referral Routine Expected: 06/22/2025 (Approximate), Expires: 08/20/2026 Pharmacy - Medication therapy management - transplant office visit (clinic) Outpatient Referral Routine Expected: 06/22/2025 (Approximate), Expires: 08/20/2026 Transplant Bone marrow office visit (clinic) Outpatient Referral Routine Expected: 06/03/2025, Expires: 08/20/2026 documented as of this encounter Visit Diagnoses Diagnosis 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 NPAmanda: [phone] [address] [place] [phone] PCP - General Family Medicine 04/25/23 documented as of this encounter
--- OUTSIDE RECORDS SUMMARY | 2025-05-25 13:45 | XMS_ITS | Encounter Summary ---
Author Organization [facility] Address [address] [place] [address] Care Team Providers Care Mixed Crop And Livestock Farmer Name Role Phone Renzo Andres M.D. Primary Care Provider Encounter Details Date Type Department Care Team (Late st Contact Info) Description 05/25/2025 1:45 PM CDT [facility] in [place], [place] [address] [place] [address] Ta Medrano Social History Tobacco Use Types Packs/Day Years Used Date Smoking Tobacco: Never Smokeless Tobacco: Never Alcohol Use Standard Drinks/Week Comments Yes 0 (1 standard drink = 0.6 oz pur e alcohol) social C Utilities Answer Date Recorded In the past 12 months has e [employer], gas, oil, or water [employer] threatened to shut off services in your [...] your living situation today? I have a [facility] place to live 12/19/2024 Education Answer Date Recorded What is the highest level of school you have completed or the highest degree you have received? Some college, no degree 04/24/2019 Comments No Sex and Gender Information Value Date Recorded Sex Assigned at Female 12/26/2018 8:37 PM MERINGUER Legal Sex Female 2:43 PM MERINGUER Gender Identity Female 12/26/2018 8:37 PM MERINGUER Sexual Orientation Choose not to disclose 2020 [...] the patient navigation team with any questions. [facility] [phone]. documented in this encounter Plan of Treatment Upcoming Encounters Date Type Department Care Team (Latest Contact Info) Description 06/12/2025 11:59 PM CDT Anesthesia Event Outpatient Procedure Center in [place], [place] [address] [place] [phone] Kristin Friend M.D. [address] [place] [phone] 06/15/2025 9:45 AM CDT Hospital Encounter Outpatient Procedure Center in [place], [place] [address] [place] [phone] Jessica Rousseau M.B.B.S. [address] [place] [phone] 06/15/2025 2:00 PM CDT [facility] in [place], [place] [address] [place] [phone] Jessica Rousseau M.B.B.S. [address] [place] [phone] 06/24/2025 12:30 PM CDT Clinical Communication Virtual Review in [place], [place] 200 [place], [place] [phone] 06/25/2025 8:10 AM CDT Lab Department of Laboratory Medicine and Pathology, [facility], in [place], [place] [address] [place] [phone] Tessa Jesus APRN, C.N.P., D.N.P. [address] [place] [phone] 06/25/2025 9:00 AM CDT Office Visit Pedro Nazario [facility] for Transplantation and Clinical Regeneration in [place], [place] [address] [place] [phone] Tessa Jesus APRN, C.N.P., D.N.P. [address] [place] [phone] 06/25/2025 9:30 AM CDT [facility] in [place], [place] [address] [place] [address] Tessa Jesus APRN, C.N.P., D.N.P. [address] [place] [phone] 06/25/2025 10:30 AM CDT Office Visit [facility] in [place], [place] [address] [place] [phone] Jessica Rousseau M.B.B.SKatalina [address] [place] [phone] 06/25/2025 12:00 PM CDT Appointment Department of Radiology, [facility], in [place], [place] [address] [place] [address] Arlen James APRN, C.N.P., D.N.P. [address] [place] [phone] 06/25/2025 12:40 PM CDT Appointment Department of Cardiovascular Diseases in [place], [place] [address] [place] [phone] Analia Carter APRN, C.N.P. [address] [place] [phone] Discharge Disposition: Home or Self Care 06/26/2025 10:00 AM CDT Telemedicine Department of Palliative Care in [place], [place] [address] [place] [address] Isabel Sellers M.D. [address] [place] [phone] Debbie Shay M.D. [address] [place] [address] 08/12/2025 10:40 AM CDT Nurse Only Section of Infectious Diseases in [place], [place] [address] [place] [address] Jessica Rousseau M.B.B.S. [address] [place] [address] documented as of this encounter Visit Diagnoses Not on filedocumented in this encounter Additional Health Concerns Infection Onset Date Last Indicated Resolved Time Protective Environment 03/02/2023 03/02/2023 Assessment Noted Time PHQ-9 Depression Total Score: 2 12/10/19 25 2:46 PM MERINGUER documented as of this encounter Care Teams Mixed Crop And Livestock Farmer Relationship Specialty Start Date End Date Renzo Andres M.D. [address] [place] [address] [place] [address] PCP - General Family Medicine 04/25/23 documented as of this encounter
--- OUTSIDE RECORDS SUMMARY | 2025-05-25 14:00 | XMS_ITS | Encounter Summary ---
Author Organization [facility] Address [address] [place] [address] Care Team Providers Care Waiter Name Role Phone Renzo Andres M.D. Primary Care Provider [phone] Reason for Referral * Outpatient (Routine) - Authorized Specialty Diagnoses / Procedures Referred By Estefania acosta Referred To Contact Palliative Medicine Felicia Watt APRN, C.N.P., M.S.N. [address] [place] [phone] Phone: tel: fax: [facility] Referral ID Status Reason Start Date Expiration Date V isits Requested Visits Authorized [id number] Authorized 05/25/2025 11/24/2026 1 1 * Medication Prior Authorization - Authorized Specialty Diagnoses / Procedures Referred By Estefania acosta Referred To Contact Felicia Watt APRN, C.NDustin, M.S.N. [address] [place] [phone] Phone: tel: fax: Referral ID Status Reason Start Date Expiration Date V isits Requested Visits Authorized [id number] Authorized 05/26/2025 11/18/2099 1 1 Reason for Visit * Outpatient (Routine) - Closed Specialty Diagnoses / Procedures Referred By Estefania acosta Referred To Contact Palliative Medicine Martine Pardo B.M.B.S., Juan M, B.Ch. [address] [place] [phone] Phone: tel: fax: [facility] Referral ID Status Reason Start Date Expiration Date Visits Re quested Visits Authorized [id number] Closed 04/21/2025 10/21/2026 1 1 Encounter Details Date Type Department Care Team (Late st Contact Info) Description 05/25/2025 2:00 PM CDT Office Visit Department of Palliative Care in [place], [place] [address] [place] [phone] Felicia Watt APRN, C.N.P., M.S.N. [address] [place] [phone] Pain Leg Bilateral (Primary Dx); Nausea; Fatigue; Insomnia; Anxiety; Palliative Care Social History Tobacco Use Types Packs/Day Years Used Date Smoking Tobacco: Never Smokeless Tobacco: Never Alcohol Use Standard Drinks/Week Comments Yes 0 (1 standard drink = 0.6 oz pur e alcohol) social [facility] Utilities Answer Date Recorded In the past 12 months has e [employer], gas, oil, or water [employer] threatened to shut off services in your [...] your living situation today? I have a [facility] place to live 12/19/2024 Education Answer Date Recorded What is the highest level of school you have completed or the highest degree you have received? Some college, no degree 04/24/2019 Comments No Sex and Gender Information Value Date Recorded Sex Assigned at Female 12/26/2018 8:37 PM CLINICAL STUDIES SPECIALIST Legal Sex Female 2:43 PM CLINICAL STUDIES SPECIALIST Gender Identity Female 12/26/2018 8:37 PM CLINICAL STUDIES SPECIALIST Sexual Orientation Choose not to disclose 2020 [...] C.N.P., M.S.N. - 05/25/2025 2:[address] [facility] Outpatient Palliative Care Progress Note The patient verbally consented to an audio recording of their visit to assist with the completion of documentation. Patient: Radha Martinez; 35 y.o.female [facility] Palliative Care Clinic SUBJECTIVE Radha Martinez is [...] etiology- disease vs. Treatment related pain? 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 Opioid Toxicity Review: We have reviewed the risks of opioid therapy and completed an assessment oftoxicities. Opioid Aberrant Use Concerns: None Opioid Risk Score: Last Opioid Risk Tool charting Flowsheet Row Comprehensive Visit from 04/21/2025 in Department of Palliative Care in [place], [place] ORT Total Score (max 26) 2 [...] CDT Anesthesia Event Outpatient Procedure Center in [address] [phone] Krsitin Friend M.D. [address] [place] [phone] 06/15/2025 9:45 AM CDT Hospital Encounter Outpatient Procedure Center in [address] [phone] Jessica Rousseau M.B.B.S. [address] [place] [phone] 06/15/2025 2:00 PM CDT Office Visit Pedro sanchez [facility] in [address] [phone] Jessica Rousseau M.B.B.S. [address] [place] [phone] 06/24/2025 12:30 PM CDT Clinical Communication Virtual Review in [address] [phone] 06/25/2025 8:10 AM CDT Lab Department of Laboratory Medicine and Pathology, [facility], in [address] [phone] Edin, Tessa L, DIAGNOSTIC CARDIAC SONOGRAPHER, C.N.P., D.N.P. [address] [place] [address] 06/25/2025 9:00 AM CDT [facility] in [place], [place] [address] [place] [address] Tessa Jesus APRN, C.N.PKatalina, D.N.P. [address] [place] [phone] 06/25/2025 9:30 [address] CDT Nurse Only [facility] Trans[facility] and Clinical Regeneration in [place], [place] [address] [place] [address] Tessa Jesus APRN, C.N.Delbert, D.N.P. [address] [place] [phone] 06/25/2025 10:30 AM CDT Office Visit [facility] Transplantation and Clinical Regeneration in [place], [place] [address] [place] [address] Jessica Rousseau M.B.B.SKatalina [address] [place] [phone] 06/25/2025 12:00 PM CDT Appointment Department of Radiology, [facility], in [place], [place] [address] [place] [address] Arlen James APRN, C.N.P., D.N.P. [address] [place] [phone] 06/25/2025 12:40 PM CDT Appointment Department of Cardiovascular Diseases in [place], [place] [address] [place] [phone] Analia Carter, KARON, C.N.P. [address] [place] [phone] Discharge Disposition: Home or Self Care 06/26/2025 10:00 AM CDT Telemedicine Department of Palliative Care in [place], [place] [address] [place] [phone] Isabel Sellers M.D. [address] [place] [phone] Debbie Shay M.D. [address] [place] [phone] 08/12/2025 10:40 AM CDT Nurse Only Section of Infectious Diseases in [place], [place] [address] [place] [phone] Jessica Rousseau M.B.B.S. [address] [place] [phone] Scheduled Referrals Name Type Priority Associated Diagnoses [...] Total Score: 2 12/10/19 25 2:46 PM CLINICAL STUDIES SPECIALIST documented as of this encounter Care Teams Waiter Relationship Specialty Start Date End Date Renzo Andres M.D. [address] [place] [phone] PCP - General Family Medicine 04/25/23 documented as of this encounter
--- OUTSIDE RECORDS SUMMARY | 2025-05-28 15:39 | XMS_ITS | Encounter Summary ---
Author Organization [facility] Address [address] [place] [address] Care Team Providers Care Pitch Filler Name Role Phone Renzo Andres M.D. Primary Care Provider Encounter Details Date Type Department Care Team (Latest Contact Info) Description 05/28/2025 3:39 PM CDT - 05/29/2025 4:32 PM CDT Hospital Encounter [facility], Ninth Floor [address] [place] [address] Tanya Ivey M.D. [address] [place] [address] Discharge Disposition: Home or Self Care Social History Tobacco Use Types Packs/Day Years Used Date Smoking Tobacco: Never Smokeless Tobacco: Never Alcohol Use Standard Drinks/Week Comments Yes 0 (1 standard drink = 0.6 oz pur e alcohol) social [facility] Utilities Answer Date Recorded In the past [...] your living situation today? I have a [facility] place to live 05/28/2025 Education Answer Date Recorded What is the highest level of school you have completed or the highest degree you have received? Some college, no degree 04/24/2019 Comments No Sex and Gender Information Value Date Recorded Sex Assigned at Female 12/26/2018 8:37 PM ACETYLENE TORCH BURNER Legal Sex Female 2:43 PM ACETYLENE TORCH BURNER Gender Identity Female 12/26/2018 8:37 PM ACETYLENE TORCH BURNER Sexual Orientation Choose not to disclose 2020 [...] AM CDT DISCHARGE SUMMARY BRIEF OVERVIEW Hospital: [facility] Discharge Provider: Tanya Ivey M.D. Primary Team: [facility] Primary Care Providers: Renzo Andres M.D. (General) [address] [place] [phone] Primary Care Provider Primary Care Provider Other Providers: None Admission Date: 05/28/2025 Discharge Date: 05/29/2025 PRINCIPAL DIAGNOSIS Nausea And Vomiting SECONDARY DIAGNOSES Principal Problem: Nausea And Vomiting Active Problems: Pain Neuropathic Depressive Disorder Transplant Stem Cell (HCC) Resolved Problems: * No resolved hospital problems. * DISCHARGE DISPOSITION Home or Self Care [1] ACTIVE ISSUES REQUIRING FOLLOW UP She will continue weekly labs at [facility]. Her [place] 9 appointment is scheduled June 03. OUTPATIENT FOLLOW UP Scheduled Appointments 06/01/2025 1:15 PM Jeaneth Núñez M.B.BKatalinaS., M.S.; RM 204 CMPLX [facility] 02 GI Gastroenterology and Hepatology 06/03/2025 10:00 AM TXP BMT ANUPAM 01 RO[facility] 09 Transplant Blood and Marrow 06/10/2025 1:20 PM IFD IMMUNIZATIONS 01 [facility] Infectious Diseases 06/15/2025 9:45 AM ROOM [facility] 07 NE 705 Procedural 06/24/2025 12:30 PM RST PAL PM MILAN INTAKE VISIT Admitting/Central Scheduling 06/25/2025 8:10 AM LAB BLOOD [facility] Laboratory Medicine 06/25/2025 9:00 AM PHR TXP PHARMACIST [facility] Pharmacy 06/25/2025 9:30 AM TXP BMT NURSE 02 [facility] Transplant Blood and Marrow 06/25/2025 10:30 AM [...] 27 for nausea. She was started on [id number] mg daily on May 28. The next [...] AM CDT You were discharged from the [facility] Service. Please [...] times a day. 60 tablet 11 04/29/2025 prochlorperazine (Compazine) 10 mg tablet Take 1 tablet (10 mg total) by mouth every 6 (six) hours as needed for nausea. 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 60 tablet 1 05/13/2025 posaconazole (NoxafiL) [address] tabletIndications:L eukemia [...] tablet 05/29/2025 4:28 PM CDT 05/30/2025 5 documented as of this encounter Progress [...] SUBJECTIVE TRANSPLANT PHYSICIAN Dr. Jessica Rousseau, pager [phone]. HISTORY OF PRESENT ILLNESS Radha Martinez is [...] donor DNA and approximately 40% recipient DNA. [id number]% donor DNA and approximately 0% recipient DNA. [...] right eye. Wears glasses. - Followed by [facility] in [place], [place]. - Patient will notify team if any vision changes. # Blood Products # TACO - Requires infusion of platelets at a slower rate # Disposition - Mrs. Martinez will be discharged today. - EGD with biopsy on 06/01/25. - Ch9 video visit on 06/03/25. - Local labs at [facility] on 06/03/25. - She reports that she previously tolerated prednisone well without hyperglycemia. - Borderline hypertension may be related with prednisone. Hopefully will improve with tapering prednisone. documented in this encounter H&P Notes * Renita Potts, KARON, C.N.P., D.N.P. - 05/28/2025 2:57 PM CDT SUBJECTIVE TRANSPLANT PHYSICIAN Dr. Jessica Rousseau, pager [phone] CHIEF COMPLAINT Ms. Radha Martinez is a [...] reticulin fibrosis noted. The cytogenetics identified a [place] chromosome in 20 metaphases. The BCR-ABL1 P [...] t(9;22) metaphases. 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 06/17/2024: feeling quite symptomatic since the [...] Access [place] CVC placed on 12/03/24 by [facility]. Social Work Seen and cleared on [...] prophylaxis: Ursodiol 600 mg two times daily. [facility] ID Number: [id number] [...] donor DNA and approximately 40% recipient DNA. [id number]% donor DNA and approximately 0% recipient DNA. [...] right eye. Wears glasses. - Followed by [facility] in [place], [place]. - Patient will notify team if [...] this encounter Consult Notes * Jennyfer Guidry M.SKatalina - 05/29/2025 11:02 AM CDTAssociated Order(s): IP [...] donor allogeneic stem cell transplant. Admitted on 7/10 for new weakness, and nausea. Day +170 (05/29). 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 She notes to feel better thismorning, no nausea. She stated that she has an appetite this morning. She had nepalese toast with syrup, fruit, and an mohawk muffin with jelly prior to being NPO. [...] Muscle Mass: Normal Fluid Accumulation: Absent Reduced Riveting Machine Operator Strength: Not applicable Estimated Needs: Total Calorie Needs: 6105-0821 calories/day Method to Estimate Energy Needs: [place] Jeor (Basal to Basal + 10%) Weight [...] about patient's nutritional care please contact pager [phone] on weekdays 07:30-16:00 or [phone] on weekends/holidays ([facility]) [phone]. [1] Past Medical History: Diagnosis Date Amblyopia Bilateral Anemia Anxiety Generalized Disorder Depressive Disorder Fibromyalgia 2020 Headache Unspecified Irritable Bowel Syndrome, Unspecified 2015 Leukemia Migraine Headache Other Injury Of Unspecified Body Region Strabismus [2] Past Surgical History: Procedure Laterality Date EYE SURGERY Right 1989 INSERTION CENTRAL VENOUS LINE N/A 12/03/2024 Procedure: INSERTION CENTRAL VENOUS LINE, [place]; Surgeon: Brianna Hernandez M.D., Ph.D.; Location: [facility] OR [3] Allergies Allergen Reactions Oxycodone [...] Potts APRN, C.N.P., D.N.P., 300 mg at 05/29/25 0813 predniSONE tablet 60 mg (Deltasone), 60 mg, oral, Daily, 60 mg at 05/29/25 0813 FOLLOWED BY [START ON 06/02/2025] predniSONE tablet [...] this encounter Nursing Notes * Jarod Reinoso M.SKatalinaN., R.N. - 05/29/2025 3:39 PM CDT Problem: [...] Discharge Problem: Risk for Compromised Skin Integrity-Other Putty And Caulking Supervisor(s) Goal: Risk for Compromised Skin Integrity-Other Putty And Caulking Supervisor(s) Outcome: Adequate for Discharge Shift Goals: Clinical [...] 27 for nausea. She was started on [id number] mg daily on May 28. The next [...] CDT Anesthesia Event [facility] in [place], [place] [address] [place] [phone] Kristin Friend M.D. [address] [place] [phone] 06/15/2025 9:45 AM CDT Hospital Encounter [facility] in [place], [place] [address] [place] [phone] Jessica Rousseau M.B.B.S. [address] [place] [phone] 06/15/2025 2:00 PM CDT Office Visit Pedro sanchez [facility] Trans[facility] Clinical Regeneration in [place], [place] [address] [place] [address] Jessica Rousseau M.B.B.S. [address] [place] [phone] 06/24/2025 12:30 PM CDT Clinical Communication Virtual Review in [place], [place] 200 [place] [phone] 06/25/2025 8:10 AM CDT Lab Department of Laboratory Medicine and Pathology, [facility] in [place], [place] [address] [place] [phone] Tessa Jesus APRN, C.N.P., D.N.P. [address] [place] [phone] 06/25/2025 9:00 AM CDT Office Visit [facility] in [place], [place] [address] [place] [phone] Tessa Jesus APRN, C.N.P., D.N.P. [address] [place] [phone] 06/25/2025 9:30 AM CDT Nurse Only [facility] for Transplantation and Clinical Regeneration in [place], [place] [address] [place] [phone] Tessa Jesus APRN, C.N.P., D.N.P. [address] [place] [phone] 06/25/2025 10:30 AM CDT Office Visit [facility] for Transplantation and Clinical Regeneration in [place], [place] [address] [place] [phone] Jessica Rousseau M.B.B.S. [address] [place] [phone] 06/25/2025 12:00 PM CDT Appointment Department of Radiology, [facility], in [place], [place] [address] [place] [phone] Arlen James APRN, C.N.P., D.N.P. [address] [place] [phone] 06/25/2025 12:40 PM CDT Appointment Department of Cardiovascular Diseases in [place], [place] [address] [place] [phone] Analia Carter APRN, C.N.P. [address] [place] [phone] Discharge Disposition: Home or Self Care 06/26/2025 10:00 AM CDT Telemedicine Department of Palliative Care in [place], [place] [address] [place] [phone] Isabel Sellers M.D. [address] [place] [phone] Debbie Shay M.D. [address] [place] [phone] 08/12/2025 10:40 AM CDT Nurse Only Section of Infectious Diseases in [place], [place] [address] [place] [phone] Jessica Rousseau M.B.B.S. [address] [place] [phone] documented as of this encounter Procedures Procedure [...] M.P.H. LAB BLOOD ADD-ON F inal Result [facility] [address] [place] [address], [facility] DTL [facility] [address] [place] [address] * (ABNORMAL) CBC with Differential, Blood (05/29/2025 [...] 5:18 AM CDT 05/29/2025 5:50 AM CDT us Crista Jay M.D., M.P.H. LAB BLOOD ADD-ON F inal Result Performing Organization Address [facility] Co de Phone Number [facility] [address] [facility] [address] 200 [place] [address] * Lactate (05/28/2025 8:59 PM CDT) [facility] Lactate, P 1.8 0.5 - 2.2 mmol/L 05/28/2025 9:54 PM CDT DTL Blood (Blood, Venous) 05/28/2025 8:59 PM CDT 05/28/2025 9:21 PM CDT us Crista Jay M.D., M.P.H. LAB BLOOD NON ADD- ON Final Result Performing Organization Address [facility] Co de Phone Number [facility] [address] [facility] 200 [place] [address] * CT Abdomen Pelvis with IV Contrast [...] change since11/03/2024. Renita Potts APRN, C.N.P., D.N.P. [facility] CT PROC EDURES Final Result * Phosphorus Inorganic (05/28/2025 4:31 PM CDT) Phosphorus (Inorganic), S 4.4 2.5 - 4.5 mg/dL 05/28/2025 7:46 PM CDT DTL Blood (Blood, Venous) 05/28/2025 4:31 PM CDT 05/28/2025 4:43 PM CDT Renita Potts APRN, C.N.P., D.N.P. LAB BLOOD A DD-ON Final Result Performing Organization Address [facility] Co de Phone Number [facility] [address] [place] [address] * Magnesium (05/28/2025 4:31 PM CDT) Magnesium, S 2.2 1.7 - 2.3 mg/dL 05/28/2025 7:46 PM CDT DTL Blood (Blood, Venous) 05/28/2025 4:31 PM CDT 05/28/2025 4:43 PM CDT Renita Potts APRN, C.N.P., D.N.P. LAB BLOOD A DD-ON Final Result Performing Organization Address City/[facility] Co de Phone Number [facility] 200 [place] [address] * (ABNORMAL) Comprehensive Metabolic Panel (05/28/2025 4:31 [...] D.N.P. LAB BLOOD A DD-ON Final Result [facility] [address] [place] [address], [facility] DTL [facility] [address] [place] [address] * CBC no call back, reflex T/S [...] LAB BLOOD N ON ADD-ON Final Result [facility] [address] [place] [address], [place] DTL [facility] [address] [place] [address] DHPM [facility] [address] [place] [address] documented in this encounter Visit Diagnoses Diagnosis [...] was interchanged for cholecalciferol (vitamin D3) tablet/capsule 812 (Given - Provid er: Lucy Stout [...] 2050 (Given - Provider: Nayeli Mcgovern R.N.) 08 (Given - Provider: Lucy Stout R.N., DANNI, [...] 2050 (Given - Provider: Nayeli Mcgovern R.N.) 08 (Given - Provider: Lucy Stout R.N., DANNI, [...] on Sun05/28/25 at 1800, For 5 doses, 175 (Given - Provider: Juan Mahmood R.N.) 08 (Given - Provider: Lucy Stout R.N., DANNI, [...] For 1 dose 1955 (Given - Provider: Vickie HarrellNKatalina) iohexoL 300 mg iodine/mL solution 1-200 mL [...] 1050 (Given - Provider: Lucy Stout R.N., [facility], O.C.N.) prochlorperazine tablet 10 mg (Compazine)(Linked Group 3) 10 mg, oral, Every 6 hours PRN, nausea, Starting on Sun05/28/25 at 1547 1635 (See Alternative - Provider: Juan Mahmood R.N.) 1050 (See Alternative - Provider: Lucy Stout R.N., DANNI, O.C.N.) sennosides-docusate sodium 8.6-50 mg per tablet [...] Total Score: 2 12/10/19 25 2:46 PM ACETYLENE TORCH BURNER documented as of this encounter Care Teams Pitch Filler Relationship Specialty Start Date End Date Renzo Andres M.D. [address] [place] [address] [place] [phone] PCP - General Family Medicine 04/25/23 documented as of this encounter
--- OUTSIDE RECORDS SUMMARY | 2025-06-01 12:04 | XMS_ITS | Encounter Summary ---
Author Organization [facility] Address [address] [place] [phone] Care Team Providers Care Medical Claims Assistant Name Role Phone Renzo Andres M.D. 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 [address] [place] [phone] Phone: tel: fax: [facility] Referral ID Status Reason Start Date Expiration Date Visits Re quested Visits Authorized [id number] Closed 05/29/2025 08/29/2026 1 1 Reason for Visit * Gastrointestinal (Routine) - Closed Specialty Diagnoses / Procedures Referred By Estefania acosta Referred To Contact Diagnoses Transplant Stem Cell (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) Procedures EGD (EsophagoGastroDuodenoscopy) Lito Pollock P.A.-C. [address] [place] [phone] Phone: tel: fax: [facility] Referral ID Status Reason Start Date Expiration Date Visits Re quested Visits Authorized [id number] Closed 05/29/2025 08/29/2026 1 1 Encounter Details Date Type Department Care Team (Latest Contact Info) Description 06/01/2025 12:04 PM CDT - 06/01/2025 11:59 PM CDT Hospital Encounter Division of Gastroenterology in [place], [place] [address] [place] [phone] Lito Pollock P.A.-C. [address] [place] [phone] Jeaneth Núñez M.B.B.S., M.S. [address] [place] [phone] Transplant Stem Cell (HCC); 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) Discharge Disposition: Home or Self Care Social History Tobacco Use Types Packs/Day Years Used Date Smoking Tobacco: Never Smokeless Tobacco: Never Alcohol Use Standard Drinks/Week Comments Yes 0 (1 standard drink = 0.6 oz pur e alcohol) social [facility] Utilities Answer Date Recorded In the past 12 months has [employer], gas, oil, or water [employer] threatened to shut off services in your [...] your living situation today? I have a [facility] place to live 05/28/2025 Education Answer Date Recorded What is the highest level of school you have completed or the highest degree you have received? 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 Identity Female 12/26/2018 8:37 PM [employer] BU[employer] Sexual Orientation Choose not to disclose 2020 3:46 PM CDT documented as of this encounter Last Filed Vital Signs Vital Sign Reading Time Taken Comments Blood Pressure 133/91 06/01/2025 2:15 PM CDT Pulse 72 06/01/2025 2:25 PM CDT Temperature 37 C (98.6 F) 06/01/2025 2:00 PM CDT Respiratory Rate 13 06/01/2025 2:25 PM CDT Oxygen Saturation 96% 06/01/2025 2:25 PM CDT Inhaled Oxygen Concentration - - Weight - - Height - - Body Mass Index - - documented in this encounter Medications at Time [...] 05/30/2025 5 documented as of this encounter Plan of Treatment Upcoming Encounters Date Type Department Care Team (Latest Contact Info) Description 06/12/2025 11:59 PM CDT Anesthesia Event Outpatient Procedure Center in [place], [place] [address] [place] [phone] Kristin Friend M.D. [address] [place] [phone] 06/15/2025 9:45 AM CDT Hospital Encounter Outpatient Procedure Center in [place], [place] [address] [place] [phone] Jessica Rousseau M.B.B.S. [address] [place] [phone] 06/15/2025 2:00 PM CDT [facility] in [place], [place] [address] [place] [phone] Jessica Rousseau M.B.B.S. [address] [place] [phone] 06/24/2025 12:30 PM CDT Clinical Communication Virtual Review in [place], [place] [address] [place] [phone] 06/25/2025 8:10 AM CDT Lab Department of Laboratory Medicine and Pathology, [facility], in [place], [place] [address] [place] [phone] Tessa Jesus APRN, C.N.P., D.N.P. [address] [place] [phone] 06/25/2025 9:00 AM CDT [facility] in [place], [place] [address] [place] [address] Tessa Jesus APRN, C.N.P., D.N.P. [address] [place] [phone] 06/25/2025 9:30 AM CDT Nurse Only [facility] for Transplantation and Clinical Regeneration in [place], [place] [address] [place] [phone] Tessa Jesus APRN, C.N.P., D.N.P. [address] [place] [phone] 06/25/2025 10:30 AM CDT [facility] in [place], [place] [address] [place] [phone] Jessica Rousseau M.B.B.S. [address] [place] [phone] 06/25/2025 12:00 PM CDT Appointment Department of Radiology, [facility], in [place], [place] [address] [place] [phone] Arlen James APRN, C.N.P., D.N.P. [address] [place] [phone] 06/25/2025 12:40 PM CDT Appointment Department of Cardiovascular Diseases in [place], [place] [address] [place] [phone] Analia Carter APRN, C.N.P. [address] [place] [phone] Discharge Disposition: Home or Self Care 06/26/2025 10:00 AM CDT Telemedicine Department of Palliative Care in [place], [place] [address] [place] [phone] Isabel Sellers M.D. [address] [place] [phone] Debbie Shay M.D. [address] [place] [phone] 08/12/2025 10:40 AM CDT Nurse Only Section of Infectious Diseases in [place], [place] [address] [place] [phone] Jessica Rousseau M.B.B.S. [address] [place] [phone] documented as of this encounter Procedures Procedure Name Priority Date/Time Associated Diagnosis Comments SURGICAL PATHOLOGY Routine 06/01/2025 1: 48 PM CDT UPPER GI ENDOSCOPY Routine 06/01/2025 1: 11 PM CDT Transplant Stem Cell (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) EGD (ESOPHAGOGASTRODUOD ENOSCOPY) Routine 06/01/2025 1:11 PM CDT Transplant Stem Cell (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) documented in this encounter Results * Surgical Pathology (06/01/2025 1:48 PM CDT) 06/02/2025 1:48 PM CDT DTL Report electronically signed by Alyssa Beatty M.D., Ph.D. I verify that I have examined all relevant slides/materi als for the specimen(s) and rendered or confirmed the diagnosis. 06/02/2025 1:48 PM CDT DTL Gross Description A: Received in formalin labeled with the patient's name, medical record number, and duodenum, random sites are five pale emerson-pinkirreg ular soft tissues, ranging from 0.2-0.6 cm in greatest dimension. The specimens are submitted en toto in cassette A1. Grossed byAJD. B: Received in formalin labeled with the patient's name, medical record number, and stomach, random sites are five pale emerson-pinkirreg ular soft tissues, ranging from 0.2-0.4 cm in greatest dimension. The specimens are submitted en toto in cassette B1. Grossed byAJD. C: Received in formalin labeled with the patient's name, medical record number, and esophagus, random sites are three pink-transluc ent irregular soft tissues, ranging from 0.2-0.3 cm in greatest dimension. The specimens are submitted en toto in cassette C1.Grossed by HALLE. 06/02/2025 1:48 PM CDT DTL Interpretation FINAL DIAGNOSIS A. Duodenum, random sites, endoscopic biopsy: Small bowel mucosa without diagnostic abnormality. Villi and plasma cells are present. No evidence of Whipple's disease, celiac sprue, or Giardia. No definite evidence for jkoij-qnzp-gr sease. B. Stomach, random sites, endoscopic biopsy: Antral and fundic mucosa with patchy mild reactive gastropathy. No H pylori. No dysplasia. No definite evidence for litdj-kuzm-wt sease. C. Esophagus, random sites, endoscopic biopsy: Squamous esophageal mucosa without diagnostic abnormality. No intraepitheli al eosinophils. No definite evidence for dpriz-jied-fv sease. Digital imaging was used in the diagnostic assessment of this case. 06/02/2025 1:48 PM CDT DTL Biopsy (Duodenum) 06/01/2025 1:48 PM CDT Biopsy (Stomach) 06/01/2025 1:50 PM CDT Biopsy (Esophagus) 06/01/2025 1:51 PM CDT us Jeaneth Barnes, M.S. LAB SURG PATH ORDDianne AMAYA Final Result Performing Organization Address City/State/[facility] Co de Phone Number [facility] [address] [place] [address], [facility] DTL [address] [place] [address] * Upper GI Endoscopy (06/01/2025 1:11 PM CDT) 06/01/2025 1:11 PM CDT Impressions [facility] - 06/01/2025 1:56 PM CDT Post-op Diagnoses: - Normal esophagus. Biopsied. - Normal stomach. Biopsied. - A few gastric polyps with fundic gland appearance. - Normal examined duodenum. Biopsied. Narrative [facility] - 06/01/2025 1:56 PM CDT Gonda 2 GI Patient Name: Radha Martinez Date of : 1990 Age: 35 Procedure Date: 06/01/2025 Procedure: Upper GI endoscopy Providers: JAYNA Graff Referring Provider: Lito Pollock Pre-op Diagnoses: Suspected muewp-smxhzi-zvum disease, Exclusion of mrvjq-cnnwvs-osqu disease, Nausea Recommendation: - Await pathology results. - Discharge patient to home (ambulatory). - Return to referring provider as previously scheduled. Findings: The examined esophagus was normal. Biopsies were taken with a cold forceps for histology. The entire examined stomach was normal. Biopsies were taken with a cold forceps for histology. A few diminutive sessile polyps with fundic gland appearance were found in the gastric body. The examined duodenum was normal. Biopsies were taken with a cold forceps for histology. Procedural Details: The patient was seen, evaluated, history reviewed, airway and heart-lung exams were performed by licensed provider and were satisfactory for planned level of sedation care. The risks, benefits and alternatives for the procedure and sedation were discussed and informed consent was obtained. A procedural pause was conducted in the presence of assisting personnel to verify the correct patient identity and procedure to be performed. Throughout the procedure, the patient's blood pressure, pulse, and oxygen saturations were monitored continuously. The Gastroscope was introduced through the mouth, and advanced to the second part of duodenum. The upper GI endoscopy was accomplished without difficulty. The patient tolerated the procedure well. Complications: No immediate complications. Estimated Blood Loss: Minimal. Attending Participation: I personally performed the entire procedure. JAYNA Graff 06/01/2025 1:55:43 PM This report has been signed electronically. Number of Addenda: 0 Note Initiated On: 06/01/2025 1:11 PM Lito Pollock P.A.-C. 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 [address] [place] [phone] PCP - General Family Medicine 04/25/23 documented as of this encounter
--- OUTSIDE RECORDS SUMMARY | 2025-06-01 13:15 | XMS_ITS | Encounter Summary ---
Author Organization [facility] Address [address] [place] [address] Care Team Providers Care Chain Maker Loom Control Name Role Phone Renzo Andres M.D. Primary Care Provider [phone] Encounter Details Date Type Department Care Team [...] In the past 12 months has e [employer], gas, oil, or water [employer] threatened to shut off services in your [...] [facility] to live 05/28/2025 Education Answer Date Recorded What is the highest level of school you have completed or the highest degree you have received? Some college, no degree 04/24/2019 Comments No Sex and Gender Information Value Date Recorded Sex Assigned at Female 12/26/2018 8:37 PM JIGGER MACHINE OPERATOR Legal Sex Female 2:43 PM JIGGER MACHINE OPERATOR Gender Identity Female 12/26/2018 8:37 PM JIGGER MACHINE OPERATOR Sexual Orientation Choose not to disclose 2020 3:46 PM CDT documented as of this encounter Plan of Treatment Upcoming Encounters Date Type Department Care Team (Latest Contact Info) Description 06/12/2025 11:59 PM CDT Anesthesia Event Outpatient Procedure Center in [place], [place] [address] [place] [address] Kristin Friend M.D. 200 [place] [phone] 06/15/2025 9:45 AM CDT Hospital Encounter Outpatient Procedure Center in [place], [place] [address] [place] [address] Jessica Rousseau M.B.B.S. 200 [place] [phone] 06/15/2025 2:00 PM CDT [facility] [place], [place] [address] [place] [phone] Jessica Rousseau M.B.B.S. [address] [place] [phone] 06/24/2025 12:30 PM CDT Clinical Communication Virtual Review in [place], [place] 200 [place] [address] 06/25/2025 8:10 AM CDT Lab Department of Laboratory Medicine and Pathology, [facility] in [place], [place] [address] [place] [phone] Tessa Jesus APRN, C.N.P., D.N.P. [address] [place] [phone] 06/25/2025 9:00 AM CDT [facility] in [place], [place] [address] [place] [phone] Tessa Jesus APRN, C.N.P., D.N.P. [address] [place] [phone] 06/25/2025 9:30 AM CDT Nurse Only [facility] in [place], [place] [address] [place] [phone] Tessa Jesus APRN, C.N.P., D.N.P. [address] [place] [phone] 06/25/2025 10:30 AM CDT Office Visit Pedro Aravind [facility] for Transplantation and Clinical Regeneration in [place], [place] [address] [place] [phone] Jessica Rousseau M.B.B.S. [address] [place] [phone] 06/25/2025 12:00 PM CDT Appointment Department of Radiology, [facility], in [place], [place] [address] [place] [address] Arlen James APRN, C.N.P., D.N.P. [address] [place] [phone] 06/25/2025 12:40 PM CDT Appointment Department of Cardiovascular Diseases in [place], [place] [address] [place] [phone] Analia Carter APRN, C.N.P. [address] [place] [phone] Discharge Disposition: Home or Self Care 06/26/2025 10:00 AM CDT Telemedicine Department of Palliative Care in [place], [place] [address] [place] [phone] Isabel Sellers M.D. [address] [place] [phone] Debbie Shay M.D. [address] [place] [phone] 08/12/2025 10:40 AM CDT Nurse Only Section of Infectious Diseases in [place], [place] [address] [place] [phone] Jessica Rousseau M.B.B.S. [address] [place] [phone] documented as of this encounter Procedures Procedure [...] Total Score: 2 12/10/19 25 2:46 PM JIGGER MACHINE OPERATOR documented as of this encounter Care Teams Chain Maker Loom Control Relationship Specialty Start Date End Date Renzo Andres M.D. [address] [place] [phone] PCP - General Family Medicine 04/25/23 documented as of this encounter
--- OUTSIDE RECORDS SUMMARY | 2025-06-01 13:39 | XMS_ITS | Encounter Summary ---
Author Organization [facility] Address [address] [place] [phone] Care Team Providers Care Package Dyer Name Role Phone Renzo Andres M.D. Primary Care Provider [phone] Encounter Details Date Type Department Care Team (Late st Contact Info) Description 06/01/2025 1:39 PM CDT Anesthesia Event Division of Gastroenterology in [place], [place] [address] [place] [phone] Isaias Tolbert, KARON, CLERK OF SUPERIOR COURT [address] [place] [phone] Bri Valenzuela M.D. [address] [place] [phone] Anesthesia Record Procedure Summary Procedure Name Responsible Anesthesiologist Anesthesia Start Time Anesthesia Stop Time EGD (ESOPHAGOGASTRODUOD ENOSCOPY) Isaias Tolbert APRN, CLERK OF SUPERIOR COURT 06/01/25 1339 06/01/25 1358 Events Date Time Event Comment 06/01/2025 1318 1339 An Start Machine/Equipme nt Checked Infection Precautions Followed Procedure/Site Verified NPO Status Verified Supine Standard ASA Monitors Applied 1343 Turnover to Proceduralist 1346 Proc Start 1351 Turnover to ANE Staff 1351 Proc Fin 1353 an stop data 1358 An End I completed my handoff to the receiving staff during which we 1. Identified the patient 2. Identified the responsible provider 3. Reviewed the pertinent medical history 4. Discussed the surgical course 5. Reviewed intra-op anesthesia management and issues during anesthesia 6. Set expectations for post-procedure period 7. Allowed opportunity for questions and acknowledgement of understanding. Meds Name Total fentanyl injection 50 mcg/mL 100 mcg lidocaine 2% (mg) injection 40 mg propofol 10 mg/mL injection 100 mg propofol 10 mg/mL infusion 135.54 mg Lactated Ringers Free Drip 0 mL * Agents No agents on file. * Blood No blood administrations on file. Lines, Drains, and Airways Type Details Placement Removal Wound 02/18/25; 943; N; Incision; Iliac crest; Right, Posterior; bmbx site 02/18/25943 by Marta Kramer R.N. Peripheral IV Placement Date: 05/19 ; Placement Time: 1633; Catheter Size: 20 G; Orientation: Left, Posterior; Location: Hand; Site Prep: Chlorhexidine (Preferred); Insertion Attempts: 1; Removal Date: 06/01/25; Removal Time: 1330 (not present) 05/28/25 1633 by Morales Loo 06/01/25 1330 by Yolanda Singh R.Lolly Peripheral IV Placement Date: 05/19 03/13; Placement Time: 1333; Catheter Size: 22 G; Orientation: Posterior, Right; Location: Hand; Site Prep: Chlorhexidine (Preferred); Technique: Anatomical landmarks; Inserted by: Yolanda; Insertion Attempts: 1; Removal Date: 06/01/25; Removal Time: 1425; Removal Reason: Patient discharged 06/01/25 1333 by Yolanda Singh R.NKatalina 06/01/25 1425 by Yolanda Singh R.Niko. documented in this encounter Social History Tobacco Use Types Packs/Day Years Used Date Smoking Tobacco: Never Smokeless Tobacco: Never Alcohol Use Standard Drinks/Week Comments Yes 0 (1 standard drink = 0.6 oz pur e alcohol) social [employer] Answer Date Recorded In the past 12 months has [employer], oil, or water [employer] threatened to shut off services in your [...] your living situation today? I have a [facility] place to live 05/28/2025 Education Answer Date Recorded What is the highest level of school you have completed or the highest degree you have received? Some college, no degree 04/24/2019 Comments No Sex and Gender Information Value Date Recorded Sex Assigned at Female 12/26/2018 8:37 PM CLINICAL RADIOLOGIST Legal Sex Female 2:43 PM CLINICAL RADIOLOGIST Gender Identity Female 12/26/2018 8:37 PM CLINICAL RADIOLOGIST Sexual Orientation Choose not to disclose 2020 3:46 PM CDT documented as of this encounter OR Notes * Anesthesia Postprocedure Evaluation - Isaias Tolbert, KARON, CLERK OF SUPERIOR COURT - 06/01/2025 1:58 PM CDT Patient: Radha Martinez Procedure Summary Date: 06/01/25 Room / Location: Division of Gastroenterology in [place], [place] Anesthesia Start: 1339 Anesthesia Stop: 1358 Procedure: EGD (ESOPHAGOGASTRODUODENOSCOPY) Diagnosis: Transplant Stem Cell (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) Scheduled Providers: Jeaneth Núñez M.B.B.S., M.S. Responsible Provider: Isaias Tolbert APRN, CRNA Anesthesia Type: MAC ASA Status: 3 Anesthesia Type: MAC Last vitals Vitals Value Taken Time BP 134/97 06/01/25 13:55 Temp Pulse 70 06/01/25 13:58 Resp 9 06/01/25 13:58 SpO2 98 % 06/01/25 13:58 Vitals shown include unfiled device data. Please reference Vitals flowsheet for most recent vital signs. Anesthesia Post Evaluation Patient Disposition: dismissal Cardiovascular status: hemodynamics (HR & BP) acceptable Respiratory status: patent airway with spontaneous effort Temperature: normothermic Oxygen requirements: room air Level of consciousness: awake Pain score: pain adequately controlled and/or at baseline Post Op nausea/vomiting: none Hydration status: euvolemic Notable Events No notable events documented. * Anesthesia Preprocedure Evaluation - Bri Valenzuela M.D. - 06/01/2025 1:17 PM CDT Preprocedure Anesthesia & H&P Assessment Procedure Summary Date/Time: 06/01/25 1315 Scheduled providers: Jeaneth Núñez M.B.B.S., M.S. Procedure: EGD (ESOPHAGOGASTRODUODENOSCOPY) Diagnosis: Transplant Stem Cell (HCC) [Z94.84] 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) [C92.10] Location: Division of Gastroenterology in [place], [place] Pertinent components of the patient's history including current problem list, medical history, surgical history, family history, social history, medications and allergies were reviewed. Present illness and pre-op diagnosis were confirmed. The planned surgery / procedure was verified with the patient / legal guardian. The patient's general health condition remains unchanged RELEVANT COMORBID CONDITIONS PSYCH (+) Depression Major Recurrent Moderate (HCC) Other (+) Transplant Stem Cell (HCC) OBJECTIVE PHYSICAL EXAMINATION Airway (HEENT) Mallampati: II TM Distance: >3 FB Neck ROM: Full Cardiovascular Rhythm: Regular Rate: Normal Cardiovascular Assessment: cardiovascular normal Pulmonary Pulmonary Assessment: Clear General / Constitutional Normal Neurological Normal Dental Normal ASSESSMENT / PLAN ANESTHESIA PLAN ASA: 3 Anesthesia Plan: MAC BMI 34; CML s/p SCT. Multiple [facility] for [facility] care. MAC. Patient seen and allergies reviewed, anesthesia plan and risks discussed directly with patient /legal guardian or through an professor of historical theology. The use of blood products not discussed Approval to Proceed: approved for anesthesia documented in this encounter Plan of Treatment Upcoming Encounters Date Type Department Care Team (Latest Contact Info) Description 06/12/2025 11:59 PM CDT Anesthesia Event Outpatient Procedure Center in [place], [place] [address] [place] [address] Kristin Friend M.D. [address] [place] [phone] 06/15/2025 9:45 AM CDT Hospital Encounter Outpatient Procedure Center in [place], [place] [address] [place] [phone] Jessica Rousseau M.B.B.S. [address] [place] [phone] 06/15/2025 2:00 PM CDT [facility] in [place], [place] [address] [place] [address] Jessica Rousseau M.B.B.S. [address] [place] [phone] 06/24/2025 12:30 PM CDT Clinical Communication Virtual Review in [place], [place] 200 [place] [address] 06/25/2025 8:10 AM CDT Lab Department of Laboratory Medicine and Pathology, [facility], in [place], [place] [address] [place] [phone] Tessa Jesus APRN, C.N.P., D.N.P. [address] [place] [phone] 06/25/2025 9:00 AM CDT Office Visit [facility] for Transplantation and Clinical Regeneration in [place], [place] [address] [place] [phone] Tessa Jesus APRN C.N.P., D.N.P. [address] [place] [phone] 06/25/2025 9:30 AM CDT Nurse Only [facility] Clinical [facility] in [place], [place] [address] [place] [phone] Tessa Jesus APRN, C.N.P., D.N.P. [address] [place] [phone] 06/25/2025 10:30 AM CDT Office Visit [facility]plantation and Clinical Regeneration in [place], [place] [address] [place] [phone] Jessica Rousseau M.B.B.S. [address] [place] [phone] 06/25/2025 12:00 PM CDT Appointment Department of Radiology, [facility], in [place], [place] [address] [place] [address] Arlen James APRN, C.N.P., D.N.P. [address] [place] [phone] 06/25/2025 12:40 PM CDT Appointment Department of Cardiovascular Diseases in [place], [place] [address] [place] [phone] Analia Carter APRN, C.N.P. [address] [place] [phone] Discharge Disposition: Home or Self Care 06/26/2025 10:00 AM CDT Telemedicine Department of Palliative Care in [place], [place] [address] [place] [phone] Isabel Sellers M.D. [address] [place] [phone] Debbie Shay M.D. [address] [place] [phone] 08/12/2025 10:40 AM CDT Nurse Only Section of Infectious Diseases in [place], [place] [address] [place] [phone] Jessica Rousseau M.B.B.S. [address] [place] [phone] documented as of this encounter Visit Diagnoses Not on filedocumented in this encounter Administered Medications Inactive Administered Medications - up to 3 most recent administrations Medication Order MAR Action Action Date Dose Rate Site fentaNYL injection (Sublimaze) intravenous, As needed, Starting on Sun06/01/25 at 1341, Anesthesia Intra-op Given 06/01/2025 1:43 PM CDT 50 mcg Given 06/01/2025 1:41 PM CDT 50 mcg Lactated Ringer's intravenous, Continuous Infusion: Per Instructions PRN, Starting on Sun06/01/25 at 1339, Anesthesia Intra-op New Bag 06/01/2025 1:39 PM CDT lidocaine (PF) (cardiac) injection intravenous, As needed, Starting on Sun06/01/25 at 1341, Anesthesia Intra-op Given 06/01/2025 1:41 PM CDT 40 mg propofol 10 mg/mL infusion (Diprivan) intravenous, Continuous Infusion: Per Instructions PRN, Starting on Sun06/01/25 at 1341, Anesthesia Intra-op New Bag 06/01/2025 1:41 PM CDT 150 mcg/kg/min 90.36 mL/hr propofoL injection (Diprivan) intravenous, As needed, Starting on Sun06/01/25 at 1342, Anesthesia Intra-op Given 06/01/2025 1:50 PM CDT 20 mg Given 06/01/2025 1:46 PM CDT 40 mg Given 06/01/2025 1:42 PM CDT 40 mg documented in this encounter Additional Health Concerns Infection Onset Date Last Indicated Resolved Time Protective Environment 03/02/2023 03/02/2023 Assessment Noted Time PHQ-9 Depression Total Score: 2 12/10/19 25 2:46 PM CLINICAL RADIOLOGIST documented as of this encounter Care Teams Package Dyer Relationship Specialty Start Date End Date Renzo Andres M.D. [address] [place], [place] [address] [phone] PCP - General Family Medicine 04/25/23 documented as of this encounter
--- OUTSIDE RECORDS SUMMARY | 2025-06-03 10:00 | XMS_ITS | Encounter Summary ---
Author Organization [facility] Address [address] [place] [address] Care Team Providers Care Power Sewing Machine Operator Name Role Phone Renzo Andres M.D. Primary Care Provider Reason for Referral * MRI/CAT/PET Scan (Routine) - Closed Specialty Diagnoses / Procedures Referred By Estefania t Referred To Contact Radiology Diagnoses Transplant Stem Cell (HCC) Procedures CT Chest Angiogram and Pulmonary Arteries with IV Contrast CT Chest with IV Contrast Jessica Avila APRN, C.N.P., M.S.N. [address] [place] [phone] Phone: tel: fax: [facility] Region Referral ID Status Reason Start Date Expiration Date Visits Re quested Visits Authorized [id number] Closed 06/03/2025 09/03/2026 1 1 Reason for Visit * Transplant (Routine) - Closed Specialty Diagnoses / Procedures Referred By Contac t Referred To Contact Transplant Tessa Jesus APRN, C.N.P., D.N.P. [address] [place] [phone] Phone: tel: fax: [facility] Referral ID Status Reason Start Date Expiration Date Visits Re quested Visits Authorized [id number] Closed 05/20/2025 11/19/2026 1 1 Encounter Details Date Type Department Care Team (Latest Contact Info) Description 06/03/2025 10:00 AM CDT Office Visit Pedro sanchez [facility] for Transplantation and Clinical Regeneration in [place], [place] [address] [place] [address] Tessa Jesus APRN, C.N.P., D.N.P. [address] [place] [address] Jessica Avila APRN, C.N.P., M.S.N. [address] [place] [address] Transplant Stem Cell (HCC) (Primary Dx) Social History Tobacco Use Types Packs/Day Years Used Date Smoking Tobacco: Never Smokeless Tobacco: Never Alcohol Use Standard Drinks/Week Comments Yes 0 (1 standard drink = 0.6 oz pur e alcohol) social [facility] Utilities Answer Date Recorded In the past 12 months has e [employer], gas, oil, or water [employer] threatened to shut off services in your [...] your living situation today? I have a [facility] place to live 05/28/2025 Education Answer Date Recorded What is the highest level of school you have completed or the highest degree you have received? Some college, no degree 04/24/2019 Comments No Sex and Gender Information Value Date Recorded Sex Assigned at Female 12/26/2018 8:37 PM SUPERVISOR CORDUROY CUTTING Legal Sex Female 2:43 PM SUPERVISOR CORDUROY CUTTING Gender Identity Female 12/26/2018 8:37 PM SUPERVISOR CORDUROY CUTTING Sexual Orientation Choose not to disclose 2020 [...] SUBJECTIVE TRANSPLANT PHYSICIAN Dr. Jessica Rousseau, pager [phone]. HISTORY OF PRESENT ILLNESS Radha Martinez is a 35 y.o. female with a past medical history significant for CML who received a MUD HCT on 12/10/24. She is at [facility] today for the follow up. Day + 175 HISTORY OF PRESENT ILLNESS Please refer to multiple prior notes in EMR for complete hematologic history: Ms. Martinez is a 35 y.o. 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 At the time of diagnosis, there was grade 3 reticulin fibrosis noted. The cytogenetics identified a [place] chromosome in 20 metaphases. The BCR-ABL1 P [...] t(9;22) metaphases. 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 06/17/2024: feeling quite symptomatic since the [...] Access Camargo CVC placed on 12/03/24 by [facility]. Social Work Seen and cleared on 10/29/24 [...] Ursodiol 600 mg two times daily. [facility] ID Number: [id number] [...] donor DNA and approximately 40% recipient DNA. [id number]% donor DNA and approximately 0% recipient DNA. [...] right eye. Wears glasses. - Followed by [facility] in [place], [place]. - Patient will notify team if [...] CDT Anesthesia Event Outpatient Procedure Center in [place], [place] [address] [place] [address] Kristin Friend M.D. [address] [place] [address] 06/15/2025 9:45 AM CDT Hospital Encounter Outpatient Procedure Center in [place], [place] [address] [place] [phone] Jessica Rousseau M.B.B.S. [address] [place] [phone] 06/15/2025 2:00 PM CDT Office Visit Pedro Nazario [facility] for Transplantation and Clinical Regeneration in [place], [place] [address] [place] [phone] Jessica Rousseau M.B.B.S. [address] [place] [phone] 06/24/2025 12:30 PM CDT Clinical Communication Virtual Review in [place], [place] [address] [place] [address] 06/25/2025 8:10 AM CDT Lab Department of Laboratory Medicine and Pathology, [facility], in [place], [place] [address] [place] [phone] Tsesa Jesus APRN, C.N.P., D.N.P. [address] [place] [phone] 06/25/2025 9:00 AM CDT [facility] in [place], [place] [address] [place] [phone] Tessa Jesus APRN, C.N.P., D.N.P. [address] [place] [phone] 06/25/2025 9:30 AM CDT Nurse Only [facility] for Transplantation and Clinical Regeneration in [place], [place] [address] [place] [phone] Tessa Jesus APRN, C.N.P., D.N.P. [address] [place] [phone] 06/25/2025 10:30 AM CDT Office Visit [facility] for Transplantation and Clinical Regeneration in [place], [place] [address] [place] [phone] Jessica Rousseau M.B.B.S. [address] [place] [phone] 06/25/2025 12:00 PM CDT Appointment Department of Radiology, [facility], in [place], [place] [address] [place] [address] Arlen James APRN, C.N.P., D.N.P. [address] [place] [phone] 06/25/2025 12:40 PM CDT Appointment Department of Cardiovascular Diseases in [place], [place] [address] [place] [phone] Analia Carter APRN, C.N.P. [address] [place] [phone] Discharge Disposition: Home or Self Care 06/26/2025 10:00 AM CDT Telemedicine Department of Palliative Care in [place], [place] [address] [place] [phone] Isabel Sellers M.D. [address] [place] [phone] Debbie Shay M.D. [address] [place] [phone] 08/12/2025 10:40 AM CDT Nurse Only Section of Infectious Diseases in [place], [place] [address] [place] [phone] Jessica Rousseau M.B.B.S. [address] [place] [phone] documented as of this encounter Results * [...] accumulation. 5. Probable hepatic steatosis. Jessica Avila APRN C.N.P., M.S.N. IMG CT PROC EDURES Final Result documented in this encounter Visit Diagnoses Diagnosis Transplant Stem Cell (HCC)- Primary Transplant Stem Cell (HCC) documented in this encounter Additional Health Concerns Infection Onset Date Last Indicated Resolved Time Protective Environment 03/02/2023 03/02/2023 Assessment Noted Time PHQ-9 Depression Total Score: 2 12/10/19 25 2:46 PM SUPERVISOR CORDUROY CUTTING documented as of this encounter Care Teams Power Sewing Machine Operator Relationship Specialty Start Date End Date Renzo Andres M.D. [address] [place] [phone] PCP - General Family Medicine 04/25/23 documented as of this encounter
--- OUTSIDE RECORDS SUMMARY | 2025-06-05 08:36 | XMS_ITS | Encounter Summary ---
Author Organization [facility] Address [address] [place] [phone] Care Team Providers Care Oceanic Sciences Professor Name Role Phone Renzo Andres M.D. Primary Care Provider [phone] Reason for Referral * MRI/CAT/PET Scan (Routine) - Closed Specialty Diagnoses / Procedures Referred By Viviac t Referred To Contact Radiology Diagnoses Transplant Stem Cell (HCC) Procedures CT Chest Angiogram and Pulmonary Arteries with IV Contrast CT Chest with IV Contrast Jessica Avila APRN C.N.P., M.S.N. [address] [place] [address] Phone: tel: fax: [facility] Region Referral ID Status Reason Start Date Expiration Date Visits Re quested Visits Authorized [id number] Closed 06/03/2025 09/03/2026 1 1 Reason for Visit * MRI/CAT/PET Scan (Routine) - Closed Specialty Diagnoses / Procedures Referred By Contac t Referred To Contact Radiology Diagnoses Transplant Stem Cell (HCC) Procedures CT Chest Angiogram and Pulmonary Arteries with IV Contrast CT Chest with IV Contrast Jessica Avila APRN, C.N.P., M.S.N. 200 [place] [address] Phone: tel: fax: [facility] Region Referral ID Status Reason Start Date Expiration Date Visits Re quested Visits Authorized [id number] Closed 06/03/2025 09/03/2026 1 1 Encounter Details Date Type Department Care Team (Latest Contact Info) Description 06/05/2025 8:36 AM CDT - 06/05/2025 11:59 PM CDT Hospital Encounter Department of Radiology in [address] [phone] Jessica Avila APRN, C.N.P., M.S.N. 200 [place] [address] Transplant Stem Cell (HCC) Discharge Disposition: Home or Self Care Social History Tobacco Use Types Packs/Day Years Used Date Smoking Tobacco: Never Smokeless Tobacco: Never Alcohol Use Standard Drinks/Week Comments Yes 0 (1 standard drink = 0.6 oz pur e alcohol) social [facility] Utilities Answer Date Recorded In the past 12 months has e [employer], gas, oil, or water [employer] threatened to shut off services in your [...] your living situation today? I have a [facility] place to live 05/28/2025 Education Answer Date Recorded What is the highest level of school you have completed or the highest degree you have received? Some college, no degree 04/24/2019 Comments No Sex and Gender Information Value Date Recorded Sex Assigned at Female 12/26/2018 8:37 PM REFINERY OPERATOR [employer] Legal Sex Female 2:43 PM [employer] Gender Identity Female 12/26/2018 8:37 PM REFINERY OPER[employer] Sexual Orientation Choose not to disclose 2020 [...] tablet 1 05/13/2025 posaconazole (NoxafiL) 100 mg tabletIndications:L eukemia Myeloid [...] CDT Anesthesia Event Outpatient Procedure Center in [address] [phone] Kristin Friend M.D. [address] [place] [phone] 06/15/2025 9:45 AM CDT Hospital Encounter Outpatient Procedure Center in [place], [place] [address] [place] [phone] Jessica Rousseau M.B.B.S. [address] [place] [phone] 06/15/2025 2:00 PM CDT Office Visit Pedro sanchez [facility] in [place], [place] [address] [place] [phone] Jessica Rousseau M.B.B.S. [address] [place] [phone] 06/24/2025 12:30 PM CDT Clinical Communication Virtual Review in [place], [place] 200 [place] [address] 06/25/2025 8:10 AM CDT Lab Department of Laboratory Medicine and Pathology, [facility], in [place], [place] [address] [place] [phone] Tessa Jesus APRN, C.N.P., D.N.P. [address] [place] [phone] 06/25/2025 9:00 AM CDT Office Visit [facility] in [place], [place] [address] [place] [address] Tessa Jesus APRN C.N.PKatalina, D.N.P. [address] [place] [phone] 06/25/2025 9:30 AM CDT Nurse Only [facility] Clinical [facility] in [place], [place] [address] [place] [address] Tessa Jesus APRN, C.N.PKatalina, D.N.P. [address] [place] [phone] 06/25/2025 10:30 AM CDT Office Visit [facility] in [place], [place] [address] [place] [address] Jessica Rousseau M.B.B.S. [address] [place] [phone] 06/25/2025 12:00 PM CDT Appointment Department of Radiology, [facility], in [place], [place] [address] [place] [address] Arlen James APRN, C.N.P., D.N.P. [address] [place] [phone] 06/25/2025 12:40 PM CDT Appointment Department of Cardiovascular Diseases in [place], [place] [address] [place] [phone] Analia Carter, KARON, C.N.P. [address] [place] [phone] Discharge Disposition: Home or Self Care 06/26/2025 10:00 AM CDT Telemedicine Department of Palliative Care in [place], [place] [address] [place] [phone] Isabel Sellers M.D. [address] [place] [phone] Debbie Shay M.D. [address] [place] [phone] 08/12/2025 10:40 AM CDT Nurse Only Section of Infectious Diseases in [place], [place] [address] [place] [phone] Jessica Rousseau M.B.B.S. [address] [place] [phone] documented as of this encounter Procedures Procedure [...] Total Score: 2 12/10/19 25 2:46 PM REFINERY OPERATOR [employer] documented as of this encounter Care Teams Oceanic Sciences Professor Relationship Specialty Start Date End Date Renzo Andres M.D. [address] [place] [address] [place] [phone] PCP - General Family Medicine 04/25/23 documented as of this encounter
--- OUTSIDE RECORDS SUMMARY | 2025-06-07 11:45 | XMS_ITS | Encounter Summary ---
Author Organization [facility] Address [address] [place] [address] Care Team Providers Care Insurance Processor Name Role Phone Renzo Andres M.D. 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 [address] [place] [phone] Phone: tel: fax: [facility] Referral ID Status Reason Start Date Expiration Date V isits Requested Visits Authorized [id number] Authorized 06/07/2025 09/07/2026 1 1 * Outpatient (Routine) - Closed Specialty Diagnoses / Procedures Referred By Estefania t Referred To Contact Diagnoses Transplant Stem Cell (HCC) Pain Pleuritic Chest Procedures ECG 12 Lead ID EKG 12 LEAD W I&R Analia Carter APRN, C.N.P. [address] [place] [phone] Phone: tel: fax: [facility] Referral ID Status Reason Start Date Expiration Date Visits Re quested Visits Authorized [id number] Closed 06/06/2025 09/06/2026 1 1 * Specialty Diagnoses / Procedures Referred By Estefania acosta Referred To Contact RST [facility] [address] [place] [address] Phone: tel: [facility] Referral ID Status Reason Start Date Expiration Date Visits Re quested Visits Authorized Scheduling Instructions Please schedule on 06/07 at noon BW,Exam Reason for Visit * Outpatient (Routine) - Closed Specialty Diagnoses / Procedures Referred By Estefania acosta Referred To Contact Diagnoses Transplant Stem Cell (HCC) Pain Pleuritic Chest Procedures ECG 12 Lead ID EKG 12 LEAD W I&R Analia Carter APRN, C.N.P. [address] [place] [phone] Phone: tel: fax: [facility] Referral ID Status Reason Start Date Expiration Date Visits Re quested Visits Authorized [id number] Closed 06/06/2025 09/06/2026 1 1 Encounter Details Date Type Department Care Team (Latest Contact Info) Description 06/07/2025 11:45 AM CDT - 06/07/2025 11:59 PM CDT Hospital Encounter [facility], Ninth Floor [address] [place] [phone] Analia Carter APRN, C.N.P. 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 I have a [facility] place to live 05/28/2025 Education Answer Date Recorded What is the highest level of school you have completed or the highest degree you have received? Some college, no degree 04/24/2019 Comments No Sex and Gender Information Value Date Recorded Sex Assigned at Female 12/26/2018 8:37 PM UI LEAD DEVELOPER Legal Sex Female 2:43 PM UI LEAD DEVELOPER Gender Identity Female 12/26/2018 8:37 PM UI LEAD DEVELOPER Sexual Orientation Choose not to disclose [...] BCR/ABL Positive Remission (HCC),Transplant Bone Marrow Allogeneic ([facility]) Take 1 tablet (500 mg total) by [...] by mouth daily. 60 capsule 1 06/07/2025 posaconazole (NoxafiL) [address] tabletIndications:L eukemia [...] this encounter Progress Notes * Analia Carter, KARON, C.N.P. - 06/07/2025 12:00 PM CDT SUBJECTIVE TRANSPLANT PHYSICIAN Dr. Jessica Rousseau, pager [phone]. HISTORY OF PRESENT ILLNESS Radha Martinez is a 35 y.o. female with a past medical history significant for CML who received a MUD HCT on 12/10/24. She is at [facility] today for the follow up. Day + 175 HISTORY OF PRESENT ILLNESS Please refer to multiple prior notes in EMR for complete hematologic history: Ms. Martinez is a 35 y.o. 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 At the time of diagnosis, there was grade 3 reticulin fibrosis noted. The cytogenetics identified a [place] chromosome in 20 metaphases. The BCR-ABL1 P [...] t(9;22) metaphases. 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 06/17/2024: feeling quite symptomatic since the [...] Access [place]argo CVC placed on 12/03/24 by S. Social Work Seen and cleared on 10/29/24 [...] prophylaxis: Ursodiol 600 mg two times daily. [facility] ID Number: [id number] [...] in discomfort across her sternum Differential - [place] ruled out with cardiac work up in [...] donor DNA and approximately 40% recipient DNA. [id number]% donor DNA and approximately 0% recipient DNA. [...] had just started 40 mg daily today [id number]) - monitor if chest pressure improves (this [...] Followed by [facility] in [place], [place]. - Patient will notify team if any vision changes. # Blood Products # TACO - Requires infusion of platelets at a slower rate # Disposition - Echocardiogram First available -06/10/25 IFD appointment for immunizations -06/15/25 Bone marrow biopsy - 06/25/25 appointments on [place] [address] documented in this encounter Plan of Treatment Upcoming Encounters Date Type Department Care Team (Latest Contact Info) Description 06/12/2025 11:59 PM CDT Anesthesia Event Outpatient Procedure Center in [place], [place] [address] [place] [phone] Kristin Friend M.D. [address] [place] [phone] 06/15/2025 9:45 AM CDT Hospital Encounter [facility] in [place], [place] [address] [place] [phone] Jessica Rousseau M.B.B.S. [address] [place] [phone] 06/15/2025 2:00 PM CDT Office Visit Pedro Fatima [place] [facility] Trans[facility] Clinical [facility] in [place], [place] [address] [place] [phone] Jessica Rousseau M.B.B.S. [address] [place] [phone] 06/24/2025 12:30 PM CDT Clinical Communication Virtual Review in [place], [place] 200 [place] [address] 06/25/2025 8:10 AM CDT Lab Department of Laboratory Medicine and Pathology, [facility], in [place], [place] [address] [place] [phone] Tessa Jesus APRN, C.N.P., D.N.P. [address] [place] [phone] 06/25/2025 9:00 AM CDT [facility] in [place], [place] [address] [place] [phone] Tessa Jesus APRN, C.N.P., D.N.P. [address] [place] [phone] 06/25/2025 9:30 AM CDT Nurse Only [facility] Transplantation and Clinical Regeneration in [place], [place] [address] [place] [address] Tessa Jesus APRN, C.N.P., D.N.P. [address] [place] [phone] 06/25/2025 10:30 AM CDT Office Visit [facility] Transplantation and Clinical Regeneration in [place], [place] [address] [place] [phone] Jessica Rousseau M.B.B.S. [address] [place] [phone] 06/25/2025 12:00 PM CDT Appointment Department of Radiology, [facility], in [place], [place] [address] [place] [phone] Arlen James APRN, C.N.P., D.N.P. [address] [place] [phone] 06/25/2025 12:40 PM CDT Appointment Department of Cardiovascular Diseases in [place], [place] [address] [place] [phone] Analia Carter APRN, C.N.P. [address] [place] [phone] Discharge Disposition: Home or Self Care 06/26/2025 10:00 AM CDT Telemedicine Department of Palliative Care in [place], [place] [address] [place] [phone] Isabel Sellers M.D. 200 [place] [phone] Debbie Shay M.D. [address] [place] [phone] 08/12/2025 10:40 AM CDT Nurse Only Section of Infectious Diseases in [place], [place] [address] [place] [phone] Jessica Rousseau M.B.B.S. 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 LAB BLOOD ADD-ON Final Result Performing Organization Address City/[facility] Co de Phone Number [facility] 200 [place] [address], [facility] 200 [place] [address] * NT-Pro B-Type Natriuretic Peptide (BNP) (06/07/2025 [...] BLOOD ADD-ON Final Result Performing Organization Address [facility] Co de Phone Number [facility] [address] [place] [address], [facility] 200 [place] [address] * Troponin T, 5th Generation (06/07/2025 12:12 PM CDT) Troponin T, 5th gen <6 <=10 ng/L 06/07/2025 1:04 PM CDT DTL Blood (Blood, Venous) 06/07/2025 12:12 PM CDT 06/07/2025 12:19 PM CDT Analia Gamez APRN, C.N.P. LAB BLOOD ADD-ON Final Result Performing Organization Address City/[facility]/[place] [address] * Magnesium (06/07/2025 12:12 PM CDT) Pathologist [facility] Magnesium, S 2.2 1.7 - 2.3 mg/dL 06/07/2025 2:36 PM CDT DTL Blood (Blood, Venous) 06/07/2025 12:12 PM CDT 06/07/2025 12:19 PM CDT Analia Gamez APRN, C.N.P. LAB BLOOD ADD-ON Final Result Performing Organization Address [facility] [place] [address], [place] [address] * (ABNORMAL) Comprehensive Metabolic Panel (06/07/2025 12:12 PM CDT) Pathologist [facility] Potassium, S 4.3 3.6 - 5.2 mmol/L [...] APRN, C.N.P. LAB BLOOD ADD-ON Final Result [facility] [address] [place] [address], [facility] [address] [place] [address] * (ABNORMAL) CBC no call back, reflex [...] C.N.P. LAB BLOOD NON ADD-ON Final Result [facility] [address] [place] [address], [place] DTL [facility] [address] [place] [address] DHPM [facility] [address] [place] [address] documented in this encounter Visit Diagnoses Diagnosis [...] Depression Total Score: 2 12/10/19 2:46 PM UI LEAD DEVELOPER documented as of this encounter Care Teams Insurance Processor Relationship Specialty Start Date End Date Renzo Andres M.D. [address] [place] [phone] PCP - General Family Medicine 04/25/23 documented as of this encounter
--- OUTSIDE RECORDS SUMMARY | 2025-06-08 13:15 | XMS_ITS | Encounter Summary ---
Author Organization [facility] Address [address] [place] [address] Care Team Providers Care Dry Can Tender Name Role Phone Renzo Andres M.D. Primary Care Provider [phone] Reason for Visit * Outpatient (Routine) - Closed Specialty Diagnoses / Procedures Referred By Estefania acosta Referred To Contact Infectious Diseases Diagnoses 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) Transplant Stem Cell (HCC) Procedures Infectious Diseases - BMT econsult Arlen James APRN, C.N.P., D.N.P. [address] [place] [phone] Phone: tel: fax: [facility] Referral ID Status Reason Start Date Expiration Date Visits Re quested Visits Authorized [id number] Closed 06/05/2025 09/05/2026 1 1 Encounter Details Date Type Department Care Team (Late st Contact Info) Description 06/08/2025 1:15 PM CDT Internal E-Consult Section of Infectious Diseases in [place], [place] [address] [place] [phone] Arlen James APRN, C.N.P., D.N.P. [address] [place] [phone] Vanessa Segura P.A.-C. [address] [place] [phone] 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); Transplant Stem Cell (HCC) Social History Tobacco Use Types Packs/Day Years Used Date Smoking Tobacco: Never Smokeless Tobacco: Never Alcohol Use Standard Drinks/Week Comments Yes 0 (1 standard drink = 0.6 oz pur e alcohol) social [facility] Utilities Answer Date Recorded In the [...] have a [facility] [place] place to live 05/28/2025 Education Answer Date Recorded What is the highest level of school you have completed or the highest degree you have received? Some college, no degree 04/24/2019 Comments No Sex and Gender Information Value Date Recorded Sex Assigned at Female 12/26/2018 8:37 PM SUPERVISOR SMALL APPLIANCE ASSEMBLY Legal Sex Female 2:43 PM SUPERVISOR SMALL APPLIANCE ASSEMBLY Gender Identity Female 12/26/2018 8:37 PM SUPERVISOR SMALL APPLIANCE ASSEMBLY Sexual Orientation Choose not to disclose 2020 3:46 PM CDT documented as of this encounter Consult Notes * Meghan Lainez MPAS, P.A.-Satnam., M.S. - 06/08/2025 1:15 PM CDT Infectious Diseases Outpatient Consultation Service-eConsult Note SUBJECTIVE Ordering Provider: Arlen James APRN, C.N.P., D.N.P. The patient was not personally interviewed or examined. The history and examination findings are based on the clinical documentation provided and/or discussed with a physician or provider who had personally interviewed and examined the patient. Time spent: Five minutes or more of medical review. Chief Complaint / Reason for Visit A consult was placed regarding Radha Martinez, a 35 y.o. female. s/p allo BMT; Chest CT from 06/05/25 found: Groundglass noted across the dependent portions of the lower lobes reflect an element of edema/atypical infection with or without associated atelectasis History of Present Illness Ms. Martinez is a 35 y.o. 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 Tacrolimus for GVHD prophylaxis was [id number]/30/2025. 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 She continues on acyclovir, penicillin VK, Bactrim, and posaconazole for prophylaxis. She developed epigastric pain on 05/30/25 after initiating prednisone on 05/28/2025. EGD (06/01) wasunrevealing and pain worsened after the procedure. She has been consistently taking Protonix with her steroid. She was evaluated at her local ED for chest pain and all testing was negative. Ultimately CT chest was performed 06/05 due to persistent chest pain which revealed ground-glass opacities in the lower lobes that suggested edema/atypical infection with or without associated atelectasis. She has no symptoms to suggest an active infection such as fevers, chills lightheadedness or fatigue. She has no respiratory symptoms such as cough or shortness of breath. OBJECTIVE LABS Results from last 7 days Lab Units 06/07/25 1212 HEMOGLOBIN g/dL 11.5* HEMATOCRIT % 36.3 RBC AUTO x10(12)/L 4.28 MCV fL 84.8 RBC DISTRIBUTION WIDTH AUTO % 13.5 WBC x10(9)/L 3.2* NEUTROPHILS AUTO x10(9)/L 2.33 PLATELETS AUTO x10(9)/L 152* Results from last 7 days Lab Units 06/07/25 1212 ALT U/L 48* Results from last 7 days Lab Units 06/07/25 1212 06/03/25 0941 CREATININE mg/dL 0.87 1.01 RENAL FUNCTION Estimated Creatinine Clearance: 110.5 mL/min (by C-G formula based on SCr of 0.87 mg/dL). MICROBIOLOGY 06/03 CMV Quant: negative 05/20 CMV Quant: negative IMAGING REVIEWED 06/05 CTA: 1. No convincing evidence of acute PE. 2. Mild cardiac enlargement. 3. Groundglass noted across the dependent portions of the lower lobes reflect an element of edema/atypical infection with or without associated atelectasis. 4. No significant pleural fluid accumulation. 5. Probable hepatic steatosis. 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 However recent BNP was unremarkable and has been on HD Prednisone which could mask a fever. She would be at a higher risk for Pneumocystis pneumonia with being on high-dose prednisone and this infection usually presents with ground-glass opacities in the lower lungs with atelectasis. She has been on Bactrim daily for PJP prophylaxis which makes this infection less likely. A Fungitell can be obtained and if positive PJP would be more of a concern. We would also recommend obtaining a Respiratory pathogen panel and sputum culture for GS, bacterialculture, fungal culture and pneumocystis PCR (if she has a productive cough). If she has or develops infectious symptoms such as cough, shortness of breath,fever or chills then consider pulmonary consult for BAL with ICH. She should have short interval repeat chest imaging andif there is noted progression then pulmonary consult for BAL with ICH should be done. RECOMMENDATIONS Obtain Fungitell, respiratory pathogen panel and if she has productive cough, sputum cultures for GS, bacterial culture, fungal culture and Pneumocystis PCR. Induced sputum can be considered if coughis unproductive. If has/develops infectious symptoms, consult pulmonary for BAL with ICH protocol. Repeat CT chest approximately 2 weeks after the last one done on 06/05. If progression noted, then consult pulmonary for BAL with ICH protocol. Consult ID for in person evaluation if any testing positive or repeat imaging shows progression. Thank you for this consult. NOELLE Hernandez, P.A.-C., M.S. documented in this encounter Plan of Treatment Upcoming Encounters Date Type Department Care Team (Latest Contact Info) Description 06/12/2025 11:59 PM CDT Anesthesia Event Outpatient Procedure Center in [place], [place] [address] [place] [address] Kristin Friend M.D. [address] [place] [phone] 06/15/2025 9:45 AM CDT Hospital Encounter Outpatient Procedure Center in [place], [place] [address] [place] [address] Jessica Rousseau M.B.B.S. [address] [place] [phone] 06/15/2025 2:00 PM CDT Office Visit Pedro sanchez [facility] for Transplantation and Clinical Regeneration in [place], [place] [address] [place] [phone] Jessica Rousseau M.B.B.S. [address] [place] [phone] 06/24/2025 12:30 PM CDT Clinical Communication Virtual Review in [place], [place] 200 [place] [phone] 06/25/2025 8:10 AM CDT Lab Department of Laboratory Medicine and Pathology, [facility] in [place], [place] [address] [place] [phone] Tessa Jesus APRN, C.N.P., D.N.P. [address] [place] [phone] 06/25/2025 9:00 AM CDT [facility] in [place], [place] [address] [place] [phone] Tessa Jesus APRN, C.N.P., D.N.P. [address] [place] [phone] 06/25/2025 9:30 AM CDT Nurse Only Pedro Lanza laura [facility] for Transplantation and Clinical Regeneration in [place], [place] [address] [place] [phone] Tessa Jesus APRN, C.N.P., D.N.P. [address] [place] [phone] 06/25/2025 10:30 AM CDT Office Visit Pedro sanchez [facility] for Transplantation and Clinical Regeneration in [place], [place] [address] [place] [phone] Jessica Rousseau M.B.B.S. [address] [place] [phone] 06/25/2025 12:00 PM CDT Appointment Department of Radiology, [facility], in [place], [place] [address] [place] [phone] Arlen James APRN, C.N.P., D.N.P. [address] [place] [phone] 06/25/2025 12:40 PM CDT Appointment Department of Cardiovascular Diseases in [place], [place] [address] [place] [phone] Analia Carter APRN, C.N.P. [address] [place] [phone] Discharge Disposition: Home or Self Care 06/26/2025 10:00 AM CDT Telemedicine Department of Palliative Care in [place], [place] [address] [place] [phone] Isabel Sellers M.D. [address] [place] [phone] Debbie Shay M.D. [address] [place] [phone] 08/12/2025 10:40 AM CDT Nurse Only Section of Infectious Diseases in [place], [place] [address] [place] [phone] Jessica Rousseau M.B.B.S. [address] [place] [phone] documented as of this encounter Visit Diagnoses Diagnosis 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) Transplant Stem Cell (HCC) documented in this encounter Additional Health Concerns Infection Onset Date Last Indicated Resolved Time Protective Environment 03/02/2023 03/02/2023 Assessment Noted Time PHQ-9 Depression Total Score: 2 12/10/19 25 2:46 PM SUPERVISOR SMALL APPLIANCE ASSEMBLY documented as of this encounter Care Teams Dry Can Tender Relationship Specialty Start Date End Date Renzo Andres M.D. [address] [place] [phone] PCP - General Family Medicine 04/25/23 documented as of this encounter
--- OUTSIDE RECORDS SUMMARY | 2025-06-10 12:45 | XMS_ITS | Encounter Summary ---
Author Organization [facility] Address [address] [place] [address] Care Team Providers Care Loin Trimmer Name Role Phone Renzo Andres M.D. Primary Care Provider [phone] Encounter Details Date Type Department Care Team (Late st Contact Info) Description 06/10/2025 12:45 PM CDT Patient [facility] in [place], [place] [address] [place] [address] Ta Medrano Social History Tobacco Use Types Packs/Day Years Used Date Smoking Tobacco: Never Smokeless Tobacco: Never Alcohol Use Standard Drinks/Week Comments Yes 0 (1 standard drink = 0.6 oz pur e alcohol) social C Utilities Answer Date Recorded In the past 12 months has e [employer], gas, oil, or water [employer] threatened to shut off services in your [...] living situation today? I have a [facility] place to live 05/28/2025 Education Answer Date Recorded What is the highest level of school you have completed or the highest degree you have received? Some college, no degree 04/24/2019 Comments No Sex and Gender Information Value Date Recorded Sex Assigned at Female 12/26/2018 8:37 PM AGRICULTURAL SERVICE WORKER Legal Sex Female 2:43 PM AGRICULTURAL SERVICE WORKER Gender Identity Female 12/26/2018 8:37 PM AGRICULTURAL SERVICE WORKER Sexual Orientation Choose not to disclose 2020 [...] the patient navigation team with any questions. [facility] [phone]. documented in this encounter Plan of Treatment Upcoming Encounters Date Type Department Care Team (Latest Contact Info) Description 06/12/2025 11:59 PM CDT Anesthesia Event Outpatient Procedure Center in [place], [place] [address] [place] [phone] Kristin Friend M.D. [address] [place] [phone] 06/15/2025 9:45 AM CDT Hospital Encounter Outpatient Procedure Center in [place], [place] [address] [place] [phone] Jessica Rousseau M.B.B.S. [address] [place] [phone] 06/15/2025 2:00 PM CDT [facility] in [place], [place] [address] [place] [phone] Jessica Rousseau M.B.B.S. [address] [place] [phone] 06/24/2025 12:30 PM CDT Clinical Communication Virtual Review in [place], [place] 200 [place] [address] 06/25/2025 8:10 AM CDT Lab Department of Laboratory Medicine and Pathology, [facility], in [place], [place] [address] [place] [phone] Tessa Jesus APRN, C.N.P., D.N.P. [address] [place] [phone] 06/25/2025 9:00 AM CDT Office Visit Pedro Nazario [facility] for Transplantation and Clinical Regeneration in [place], [place] [address] [place] [phone] Tessa Jesus APRN, C.N.P., D.N.P. [address] [place] [phone] 06/25/2025 9:30 AM CDT Nurse Only [facility] in [place], [place] [address] [place] [address] Tessa Jesus APRN C.N.PKatalina, D.N.P. [address] [place] [phone] 06/25/2025 10:30 AM CDT Office Visit [facility] Transplantation and Clinical Regeneration in [place], [place] [address] [place] [phone] Jessica Rousseau M.B.B.SKatalina [address] [place] [phone] 06/25/2025 12:00 PM CDT Appointment Department of Radiology, [facility], in [place], [place] [address] [place] [address] Arlen James APRN, C.N.P., D.N.P. [address] [place] [phone] 06/25/2025 12:40 PM CDT Appointment Department of Cardiovascular Diseases in [place], [place] [address] [place] [phone] Analia Carter APRN, C.N.P. [address] [place] [phone] Discharge Disposition: Home or Self Care 06/26/2025 10:00 AM CDT Telemedicine Department of Palliative Care in [place], [place] [address] [place] [address] Isabel Sellers M.D. [address] [place] [phone] Debbie Shay M.D. [address] [place] [phone] 08/12/2025 10:40 AM CDT Nurse Only Section of Infectious Diseases in [place], [place] [address] [place] [phone] Jessica Rousseau M.B.B.S. [address] [place] [phone] documented as of this encounter Visit Diagnoses Not on filedocumented in this encounter Additional Health Concerns Infection Onset Date Last Indicated Resolved Time Protective Environment 03/02/2023 03/02/2023 Assessment Noted Time PHQ-9 Depression Total Score: 2 12/10/19 25 2:46 PM AGRICULTURAL SERVICE WORKER documented as of this encounter Care Teams Loin Trimmer Relationship Specialty Start Date End Date Renzo Andres M.D. [address] [place] [phone] PCP - General Family Medicine 04/25/23 documented as of this encounter
--- OUTSIDE RECORDS SUMMARY | 2025-06-10 13:20 | XMS_ITS | Encounter Summary ---
Author Organization [facility] Address [address] [place] [address] Care Team Providers Care Air Cargo Ground Crew Supervisor Name Role Phone Renzo Andres M.D. Primary Care Provider [phone] Reason for Visit * Reason Comments Immunizations Encounter Details Date Type Department Care Team (Late st Contact Info) Description 06/10/2025 1:20 PM CDT Nurse Only Section of Infectious Diseases in [place], [place] [address] [place] [phone] Jessica Rousseau M.B.B.S. [address] [place] [phone] Carolyn Gardner RKatalinaNKatalina [address] [place] [phone] Immunizations Social History Tobacco Use Types Packs/Day [...] your living situation today? [facility] have a [facility] to live 05/28/2025 Education Answer Date Recorded What is the highest level of school you have completed or the highest degree you have received? Some college, no degree 04/24/2019 Comments No Sex and Gender Information Value Date Recorded Sex Assigned at Female 12/26/2018 8:37 PM INVESTMENT SALES ASSISTANT Legal Sex Female 2:43 PM INVESTMENT SALES ASSISTANT Gender Identity Female 12/26/2018 8:37 PM INVESTMENT SALES ASSISTANT Sexual Orientation Choose not to disclose [...] CDT Anesthesia Event Out[facility] in [place], [place] [address] [place] [address] Kristin Friend M.D. [address] [place] [phone] 06/15/2025 9:45 AM CDT Hospital Encounter Outpatient Procedure Center in [place], [place] [address] [place] [address] Jessica Rousseau M.B.B.S. [address] [place] [phone] 06/15/2025 2:00 PM CDT Office Visit Pedro sanchez [facility] for Transplantation and Clinical Regeneration in [place], [place] [address] [place] [phone] Jessica Rousseau M.B.B.S. [address] [place] [phone] 06/24/2025 12:30 PM CDT Clinical Communication Virtual Review in [place], [place] 200 [place] [phone] 06/25/2025 8:10 AM CDT Lab Department of Laboratory Medicine and Pathology, [facility] in [place], [place] [address] [place] [phone] Tessa Jesus APRN, C.N.P., D.N.P. [address] [place] [phone] 06/25/2025 9:00 AM CDT [facility] in [place], [place] [address] [place] [phone] Tessa Jesus APRN, C.N.P., D.N.P. [address] [place] [phone] 06/25/2025 9:30 AM CDT Nurse Only [facility] for Transplantation and Clinical Regeneration in [place], [place] [address] [place] [phone] Tessa Jesus APRN, C.N.P., D.N.P. [address] [place] [phone] 06/25/2025 10:30 AM CDT Office Visit [facility] in [place], [place] [address] [place] [phone] Jessica Rousseau M.B.B.SKatalina [address] [place] [phone] 06/25/2025 12:00 PM CDT Appointment Department of Radiology, [facility], in [place], [place] [address] [place] [address] Arlen James APRN, C.N.P., D.N.P. [address] [place] [phone] 06/25/2025 12:40 PM CDT Appointment Department of Cardiovascular Diseases in [place], [place] [address] [place] [phone] Analia Carter, KARON, C.N.P. [address] [place] [phone] Discharge Disposition: Home or Self Care 06/26/2025 10:00 AM CDT Telemedicine Department of Palliative Care in [place], [place] [address] [place] [phone] Isabel Sellers M.D. [address] [place] [address] [phone] Debbie Shay M.D. [address] [place] [address] [phone] 08/12/2025 10:40 AM CDT Nurse Only Section of Infectious Diseases in [address] [phone] Jessica Rousseau M.B.B.S. [address] [place] [address] [phone] documented as of this encounter Visit Diagnoses Diagnosis Need Vaccine Immunization- Primary documented in this encounter Additional Health Concerns Infection Onset Date Last Indicated Resolved Time Protective Environment 03/02/2023 03/02/2023 Assessment Noted Time PHQ-9 Depression Total Score: 2 12/10/19 25 2:46 PM INVESTMENT SALES ASSISTANT documented as of this encounter Care Teams Air Cargo Ground Crew Supervisor Relationship Specialty Start Date End Date Renzo Andres M.D. [address] [place] [phone] PCP - General Family Medicine 04/25/23 documented as of this encounter
--- OUTSIDE RECORDS SUMMARY | 2025-06-12 16:28 | XMS_ITS | Encounter Summary ---
Author Organization [facility] Address [address] [place] [id number] Care Team Providers Care Converting Operator Name Role Phone Renzo Andres M.D. Primary Care Provider [phone] Encounter Details Date Type Department Care Team (Latest Contact Info) Description 06/12/2025 4:28 PM CDT - 06/13/2025 5:22 PM CDT Hospital Encounter [facility], Tenth Floor [address] [place] [address] Mallory Sharif M.D. [address] [place] [phone] Carlos Lawton M.D. [address] [place] [phone] Discharge Disposition: Home or Self Care Social History Tobacco Use Types Packs/Day Years Used Date Smoking Tobacco: Never Smokeless Tobacco: Never Alcohol Use Standard Drinks/Week Comments Yes 0 (1 standard drink = 0.6 oz pur e alcohol) social Humiliation, Afraid, Rape, and Kick questionnair e Answer Date Recorded Within the last year, have y ou been afraid of your partner or ex-partner? No 06/12/2025 Within the last year, have y ou been humiliated or emotionally abused in other ways by your partner or ex-partner? No Within the last year, have y ou been kicked, hit, slapped, or otherwise physically hurt by your partner or ex-partner? No 06/12/2025 Within the last year, have y ou been raped or forced to have any kind of sexual activity by your partner or ex-partner? No 06/12/2025 Hunger Vital Sign Answer Date Recorded Within the past 12 months, y ou worried that your food would run out before you got the money to buy more. Never true 06/12/20 Within the past 12 months, t he food you bought just didn't last and you didn't have money to get more. Never true 06/12/2025 PRAPARE - Transportation Answer Date Re corded In the past 12 months, has l ack of transportation kept you from medical appointments or from getting medications? No 05/20 In the past 12 months, has l ack of transportation kept you from meetings, work, or from getting things needed for daily living? No 06/12/2025 [facility] Utilities Answer Date Recorded In the past 12 months has th e electric, gas, oil, or water company threatened to shut off services in your home? No 06/12/2025 Depression Answer Date Recor ded PHQ-9 Total Score (max 27) 2 12/10 Housing Stability Answer Date Recorded What is your living situation today? I have a [facility] place to live 06/12/2025 Education Answer Date Recorded What is the highest level of school you have completed or the highest degree you have received? Some college, no degree 04/24/2019 Comments No Sex and Gender Information Value Date Recorded Sex Assigned at Female 12/26/2018 8:37 PM [employer] Legal Sex Female 2:43 PM [employer] Gender Identity Female 12/26/2018 8:37 PM [employer] Sexual Orientation Choose not to disclose 2020 3:46 PM CDT documented as of this encounter Last Filed Vital Signs Vital Sign Reading Time Taken Comments Blood Pressure 152/96 06/13/2025 2:21 PM CDT Pulse 88 06/13/2025 2:21 PM CDT Temperature 36.6 C (97.9 F) 06/13/2025 2:21 PM CDT Respiratory Rate 20 06/13/2025 2:21 PM CDT Oxygen Saturation 96% 06/13/2025 2:21 PM CDT Inhaled Oxygen Concentration - - Weight 101 kg (222 lb 14.2 oz) 06/13/2025 5:21 P M CDT Height 172.7 cm (5' 7.99) 06/13/2025 3:06 PM CD T Body Mass Index 33.9 06/13/2025 3:06 PM CDT documented in this encounter Discharge Summaries * Analia Carter, VAULT KEEPER, C.N.P. - 06/13/2025 2:42 PM CDT DISCHARGE SUMMARY BRIEF OVERVIEW Hospital: [facility] Discharge Provider: Mallory Sharif M.D. Primary Team: [facility] Primary Care Providers: Renzo Andres M.D. (General) [address] [place] [phone] Primary Care Provider Primary Care Provider Other Providers: None Admission Date: 06/12/2025 Discharge Date: 06/13/25 PRINCIPAL DIAGNOSIS Abdominal Pain SECONDARY DIAGNOSES Principal Problem: Abdominal Pain Resolved Problems: * No resolved hospital problems. * DISCHARGE DISPOSITION Home or Self Care [1] ACTIVE ISSUES REQUIRING FOLLOW UP OUTPATIENT FOLLOW UP Scheduled Appointments Next 10 Appointments 06/15/2025 8:20 AM LAB BLOOD [facility] Laboratory Medicine 06/15/2025 9:45 AM ROOM [place] [id number] [place] 705 Procedural 06/15/2025 2:00 PM TXP BMT ANUPAM 01 [facility] 09 Transplant Blood and Marrow 06/24/2025 12:30 PM RST PAL PM MILAN INTAKE VISIT Admitting/Central Scheduling 06/25/2025 8:10 AM LAB BLOOD [facility] Laboratory Medicine 06/25/2025 9:00 AM PHR TXP PHARMACIST [facility] 06/25/2025 9:30 AM TXP BMT NURSE 02 [facility] Transplant Blood and Marrow 06/25/2025 10:30 AM Jessica Rousseau M.B.B.S. Transplant Blood and Marrow 06/25/2025 12:[address] [facility] [place] 105 Radiology 06/25/2025 12:40 PM ECHO (2) [place] 06 224 Cardiovascular Disease Displaying the next 10 appointments. This patient has additional appointments scheduled. For appointment details refer to your Patient Appointment Guide. TEST RESULTS PENDING AT DISCHARGE Pending Labs None DETAILS OF HOSPITAL STAY REASON FOR ADMISSION Abdominal Pain HOSPITAL COURSE Ms. Radha Martinez is a 35 yo female with a past medical history CML. 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 She is currently day +185 . Ms. Martinez admits to the inpatient BMT service today with concern of new increasing abdominal pain in last 24-48 hours. She reports pain to be generalized. She describes as an aching and intermittently sharp pain. Not relieved with bowel movements or passing gas. She reports one soft formed stool 06/11/25. An abdominal CT was done which showed No acute abnormality in the abdomen or pelvis. Moderate colonic stool burden. She has been started on docusate BID and senokot prn. She will try ibuprofen or tylenol for abdominal pain and utilize a heating pad prn. A total of greater than 30 minutes were spent in discharge planning and documentation CONSULTS ORDERED DURING THIS ADMISSION IP CONSULT TO DIETITIAN CONDITION AT DISCHARGE stable Discharge instructions were provided to the patient and caregiver(s). Total time spent in discharge services today: 30 minutes. documented in this encounter Discharge Instructions * Attachments The following attachments cannot be sent through Care Everywhere. * Acetaminophen (By mouth) (Gibraltarian) * Diphenhydramine (By mouth) (Gibraltarian) * Laxative, Stool Softeners (By mouth) (Gibraltarian) * Ibuprofen (By mouth) (Gibraltarian) * Laxative, Stimulant (By mouth) (Gibraltarian) documented in this encounter Medications at Time of Discharge acetaminophen (TylenoL) 325 mg tablet Take 2 tablets (650 mg total) by mouth every 4 (four) hours as needed for mild pain or score 1-3 of 10. 06/13/2025 acyclovir (Zovirax) 400 mg tabletIndications:L eukemia Myeloid Chronic BCR/ABL Positive Remission (HCC),Transplant Bone Marrow Allogeneic (HCC) Take 1 tablet (400 mg total) by mouth 2 (two) times a day. 60 tablet 11 04/15/2025 alum-mag hydroxide-simeth (Maalox) 200-200-20 mg/5 mL suspension Take 30 mL by mouth every 4 (four) hours as needed for indigestion (dyspepsia). 06/13/2025 ARIPiprazole (Abilify) 10 mg tablet Take 1 tablet (10 mg total) by mouth daily. Dose change 12/02/2024 30 tablet 5 04/15/2025 10/12/20 25 buprenorphine (Butrans) 5 mcg/hourIndications :Chronic Pain/Nonacute Pain Place 1 patch on the skin once a week Indication: Chronic Pain/Nonacute Pain. 4 patch 05/25/2025 cholecalciferol (Vitamin D3) 50 mcg (2,000 Unit) tablet Take 50 mcg by mouth daily. diphenhydrAMINE (BenadryL) 25 mg capsule Take 1 capsule (25 mg total) by mouth every 6 (six) hours as needed for itching. 06/13/2025 docusate sodium (Colace) 100 mg capsule Take 1 capsule (100 mg total) by mouth 2 (two) times a day. 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 120 capsule 04/29/2025 HYDROmorphone (Dilaudid) 1 mg/mL liquidIndications:C hronic Pain/Nonacute Pain Take 0.5 mL (0.5 mg total) by mouth daily as needed for pain Indication: Chronic Pain/Nonacute Pain. 10 mL 05/13/2025 ibuprofen 400 mg tablet Take 1 tablet (400 mg total) by mouth every 6 (six) hours as needed for moderate pain or score 4-6 of 10. 06/13/2025 loperamide (Imodium A-D) 2 mg capsule Take [...] mg total) by mouth daily. 90 tablet 06/13/2025 predniSONE (Deltasone) 10 mg tablet Take 3 tablets (30 mg total) by mouth daily for 4 days, THEN 2 tablets (20 mg total) daily for 3 days, THEN 1 tablet (10 mg total) daily for 3 days. 21 tablet 06/13/2025 06/23/20 25 prochlorperazine (Compazine) 10 mg tablet Take 1 tablet (10 mg total) by mouth every 6 (six) hours as needed for nausea. 30 tablet 1 05/20/2025 sennosides-docusate sodium (Senokot-S) 8.6-50 mg per tablet Take 1 tablet by mouth 2 (two) times a day as needed for constipation. 06/13/2025 sulfamethoxazole-tr imethoprim (Bactrim) 400-80 mg per tabletIndications:T ransplant Bone Marrow Allogeneic (HCC),Leukemia Myeloid Chronic BCR/ABL Positive Not Having Achieved Remission (HCC) Take 1 tablet by mouth daily. 60 tablet 1 05/13/2025 documented as of this encounter Progress Notes * Analia Carter, KARON, C.N.P. - 06/13/2025 7:17 AM CDT SUBJECTIVE Ms. Radha Martinez is a 35 yo female with a past medical history CML. 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 She is currently day +185 . Ms. Martinez admits to the inpatient BMT service today with concern of new increasing abdominal pain in last 24-48 hours. She reports pain to be generalized. She describes as an aching and intermittently sharp pain. Not relieved with bowel movements or passing gas. She reports one soft formed stool yesterday. Events over the past 24 hours: No acute events She reports that she did not sleep well last night. She tells me that she has lower abdominal pain (below the umbilicus) that waxes and wanes. Some times it is cramping or generalized tenderness and sometimes she has quick sharp pain that will be in different places in her lower abdomen. She tells me that she has not tried anything for pain other than Dilaudid. We discussed the results of her abdominal CT scan which showed moderate stool burden. She tells me the last bowel movement that she hadwas evening at 8:00. We talked about her menses as she is not to receive further Lupron and the last dose should be wearing off as this was last given on 03/03/25. We discussed that she could have menstrual pains. We discussed using other medication or modalities for pain such as Ibuprofen or tylenol or even a heating pad for her abdominal pain. She is concerned about developing constipation so will try other modalities for her pain. We will see how she does throughout the day, if she is doing well this afternoon, she may be able to be discharged from the hospital. Review of Systems REVIEW OF SYSTEMS OBJECTIVE VITAL SIGNS Height: 172.7 cm, Weight: 101 kg, BMI (Calculated): 33.7 kg/m??, Blood Pressure: 144/74, Heart Rate: 96, Pulse Rate: 90, Resp Rate: 18, Temperature: 37.1 ??C, SpO2: 98 % Admission Weight: 101 kg Intake/Output Summary (Last 24 hours) at 06/13/2025 0717 Last data filed at 06/12/2025 2100 Gross per 24 hour Intake 150 ml Output 400 ml Net -250 ml Constitutional Appearance: Normal appearance. HENT Head: Normocephalic and atraumatic. Mouth/Throat: Mouth: Mucous membranes are moist. Pharynx: Oropharynx is clear. Eyes Conjunctiva/sclera: Conjunctivae normal. Cardiovascular Rate and Rhythm: Normal rate and regular rhythm. Pulses: Normal pulses. Heart sounds: Normal heart sounds. Pulmonary Effort: Pulmonary effort is normal. Breath sounds: Normal breath sounds. Abdominal General: Bowel sounds are normal. Palpations: Abdomen is soft. Tenderness: There is abdominal tenderness. Comments: Slight tenderness to palpation in the lower abdomen on palpation (distal to umbilicus). There is no rebound tenderness or guarding. Neurological Mental Status: She is alert. Recent Results (from the past 24 hours) CBC no call back, reflex T/S HGB <8 Collection Time: 06/12/25 5:37 PM Result Value Hemoglobin 11.8 Hematocrit 36.3 Erythrocytes 4.33 MCV 83.8 RBC Distrib Width 14.2 Platelet Count 203 Leukocytes 6.8 Neutrophils 5.73 Lymphocytes 0.71 (L) Monocytes 0.33 Eosinophils <0.03 Basophils <0.03 Comprehensive Metabolic Panel Collection Time: 06/12/25 5:37 PM Result Value Potassium, S 5.0 Sodium, S 140 Chloride, S 106 Bicarbonate, S 22 Anion Gap 12 BUN (Blood Urea Nitrogen), S 11 Creatinine 0.81 Estimated GFR (eGFR) >90 Calcium, Total, S 9.3 Glucose, S 126 Protein, Total, S 6.9 Albumin, S 4.4 Aspartate Aminotransferase (AST), S 25 Alkaline Phosphatase, S 92 Alanine Aminotransferase (ALT), S 33 Bilirubin, Total, S <0.2 ASSESSMENT / PLAN # Chronic phase CML, [...] donor DNA and approximately 40% recipient DNA. [id number]% donor DNA and approximately 0% recipient DNA. [...] GI GVHD # Chills and night sweats # Abdominal pain - C-diff negative from 05/17. PRN Imodium [...] Compazine and Pantoprazole 40 mg po BID. - Re-admitted on 06/12 for abdominal pain. Plan to proceed with abdominal/pelvis CT. Optimize pain management with oral Dilaudid as needed. - Abdominal CT 06/12 reveals No acute abnormality in the abdomen or pelvis. Moderate colonic stool burden - Plan to titrate prednisone as follow: 06/14 - 06/16 30 mg 06/17 - 06/19 20 mg 06/20 - 06/22 10 mg 06/23 discontinue # Esophageal /Chest pain Pain is sharp [...] had just started 40 mg daily today [id number]) - monitor if chest pressure improves (this may also help the slight increase in ALT). * Echocardiogram - first evaluable to assess for pericardial effusion - 06/12/2025: Patient reports she was unable to pear picker Budesonide due to pharmacy availability, butshe did resume prednisone. Will continue with prednisone 40 mg daily on admission. - Plan to titrate prednisone as follow: 06/14 - 06/16 30 mg 06/17 - 06/19 20 mg 06/20 - 06/22 10 mg 06/23 discontinue # GVHD Prophylaxis - Received PTCy; MMF [...] by [facility] in [place], [place]. - Patient will notify team if any vision changes. # Blood Products # TACO - Requires infusion of platelets at a slower rate # Disposition - Ms. Radha Martinez will be discharged to home in stable condition. documented in this encounter H&P Notes * Jurgen Alexis Pharm.D., M.S., R.Ph., [facility] - 06/13/2025 7:31 AM CDT 35 y.o. female with a past medical history significant for CML who received a HCT on 12/10/2024. Sheis being admitted for abdominal pain. Currently 12/10/2024 (185 days). 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), Currently day + 179 # Immunodeficiency (HCC) secondary immunosuppressive medication # Diarrhea, resolved on 05/20 # Persistent Nausea and vomiting since 05/20, Query for GI GVHD # Chills and night sweats # Abdominal pain -Symptomatic management until diagnostics complete # Esophageal /Chest pain -Pantoprazole twice daily # GVHD Prophylaxis # Antimicrobial Prophylaxis - Antimicrobials continued, especially while on predisone 40 mg daily # Insomnia - Melatonin available # Peripheral neuropathy # Vitamin D Deficiency # Generalized Anxiety Disorder # Major Depressive Disorder, recurrent episode, mild Continue aripiprazole and duloxetine # Right eye strabismus # Potential left retina tear, stable # Blood Products # TACO - Slower transfusions, premedications # Disposition - TBD pending diagnostics and clinical course * Renita Potts APRN, C.N.P., D.N.P. - 06/12/2025 5:42 PM CDT BMT Inpatient H&P Admission date/time: 06/12/2025 4:28 PM SUBJECTIVE TRANSPLANT PHYSICIAN Dr. Jessica Rousseau, pager [phone]. CHIEF COMPLAINT Radha Martinez is a 35 y.o. female with a past medical history significant for CML who received a HCT on 12/10/2024. She is being admitted for abdominal pain. Currently 12/10/2024 (184 days). ATC contacted for urgent admission. HISTORY OF PRESENT ILLNESS Please refer to multiple prior notes in EMR for complete hematologic history: Ms. Martinez is a 35 y.o. 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 At the time of diagnosis, there was grade 3 reticulin fibrosis noted. The cytogenetics identified a [place] chromosome in 20 metaphases. The BCR- ABL1 P 210 transcript was detected and quantitated [...] t(9;22) metaphases. NGS is positive for ASXL1 p.[id number]*12 (20%) and p.Gyj270* (3%). 06/17/2024: feeling quite symptomatic since the [...] Access [place] CVC placed on 12/03/24 by [facility]. Social Work Seen and cleared [...] prophylaxis: Ursodiol 600 mg two times daily. [facility] ID Number: [id number] [...] done on 06/01. Biopsies negative for GVHD Events leading up to admission: Mrs. Martinez admits to the inpatient BMT service today with concern of new increasing abdominal pain in last 24-48 hours. She reports pain to be generalized. She describes as an aching and intermittently sharp pain. Not relieved with bowel movements or passing gas. She reports one soft formed stool yesterday. She denies nausea or vomiting. Able to tolerate oral diet. Denies chest pain or palpitations. She reports epigastric pain that was previously reported has improved with admission. She denies fever. She does report her son previously had been feeling ill but not associated with GI related symptoms. We will plan to proceed with a CT abdomen pelvis this evening. Along with pain management. Plan to continue steroid with current Prednisone 40 mg daily. Denies headache, fever/chills, pre-syncope/dizziness/lightheadedness, rash, oral/throat pain, cough, shortness of breath, chest pain, palpitations, nausea, vomiting, diarrhea, or bleeding. REVIEW OF SYSTEMS A 10-point review of systems was conducted. Positive findings are noted in the interval history above. I reviewed the medication list, allergies and past medical/surgical history. ALLERGIES Allergies Allergen Reactions Oxycodone GI intolerance Severe nausea Bupropion Edema (Reselect Reaction) Grapefruit Other (see comments) Drug-drug interaction with Bosulif (bosutinib); This had also been noted w/ prior therapy which patient is no longer taking (Tasigna (nilotinib)). MEDICATIONS Medications Ordered Prior to Encounter[1] PAST MEDICAL HISTORY Medical History[2] PAST SURGICAL HISTORY Surgical History[3] SOCIAL HISTORY Social History Socioeconomic History Marital status: Single Spouse name: Not on file Number of children: Not on file Years of education: Not on file Highest education level: Some college, no degree Occupational History Not on file Tobacco Use Smoking status: Never Smokeless tobacco: Never Vaping Use Vaping status: never used Substance and Sexual Activity Alcohol use: Yes Comment: social Drug use: Never Sexual activity: Not Currently Partners: Male control/protection: None Other Topics Concern Not on file Social History Narrative Not on file Social Drivers of Health Food Insecurity: No Food Insecurity (06/12/2025) Hunger Vital Sign Worried About Running Out of Food in the Last Year: Never true Ran Out of Food in the Last Year: Never true Transportation Needs: No Transportation Needs (06/12/2025) PRAPARE - Transportation Lack of Transportation (Medical): No Lack of Transportation (Non-Medical): No Intimate Partner Violence: Not At Risk (06/12/2025) Humiliation, Afraid, Rape, and Kick questionnaire Fear of Current or Ex-Partner: No Emotionally Abused: No Physically Abused: No Sexually Abused: No Housing Stability: Low Risk (06/12/2025) Housing Stability Housing: Living Situation: I have a steady place to live OBJECTIVE I/O No intake or output data in the 24 hours ending 06/12/25 1918 VITAL SIGNS Vitals: 06/12/25 1654 06/12/25 1655 06/12/25 1656 06/12/25 1657 BP: (!) 141/92 BP Location: Left arm;Upper Patient Position: Sitting Pulse: 88 96 91 87 Resp: 16 Temp: 36.7 ??C TempSrc: Oral Weight: 101 kg (06/12/2025 5:17 PM) Height: 172.7 cm (06/12/2025 5:17 PM) Admission Weight: 101 kg Physical Exam General: Patient is alert, oriented in no acute distress. Skin: LTCVC without erythema or tenderness. No rash present. Eyes: Anicteric. ENT: Oral mucosa and oropharynx examined and without erythema, ulceration, or lesions. Vessels: Radial and Pedal pulses 2+. Heart: RRR, no murmur, normal S1, S2. Lungs: Normal respiratory effort, lungs clear to auscultation bilaterally. Abdomen: Bowel sounds hypoactive. Abdomen is soft and generalized tenderness to palpations. No rebound tenderness. Extremities: No edema, cyanosis, or clubbing Karnofsky Performance Score: 90% DIAGNOSTICS I have reviewed the recent relevant Diagnostics Results from last 7 days Lab Units 06/12/25173606/07/25 1212 HEMOGLOBIN g/dL 11.8 11.5* HEMATOCRIT % 36.3 36.3 RBC AUTO x10(12)/L 4.33 4.28 MCV fL 83.8 84.8 RBC DISTRIBUTION WIDTH AUTO % 14.2 13.5 WBC x10(9)/L 6.8 3.2* NEUTROPHILS AUTO x10(9)/L 5.73 2.33 PLATELETS AUTO x10(9)/L 203 152* Results from last 7 days Lab Units 06/12/25173606/07/25 1212 SODIUM mmol/L 140 139 CHLORIDE mmol/L 106 103 BUN mg/dL 11 9 CREATININE mg/dL 0.81 0.87 CALCIUM mg/dL 9.3 9.3 ALBUMIN g/dL 4.4 4.0 BILIRUBIN TOTAL mg/dL <0.2 0.3 ALK PHOS U/L 92 79 ALT U/L 33 48* AST U/L 25 39 GLUCOSE S mg/dL 126 188* ASSESSMENT / PLAN # Chronic phase CML, [...] donor DNA and approximately 40% recipient DNA. [id number]% donor DNA and approximately 0% recipient DNA. [...] GI GVHD # Chills and night sweats # Abdominal pain - C-diff negative from 05/17. PRN Imodium [...] Compazine and Pantoprazole 40 mg po BID. - Re-admitted on 06/12 for abdominal pain. Plan to proceed with abdominal/pelvis CT. Optimize pain management with oral Dilaudid as needed. Plan to continue with 40 mg of prednisone daily. # Esophageal /Chest pain Pain is sharp [...] had just started 40 mg daily today [id number]) - monitor if chest pressure improves (this may also help the slight increase in ALT). * Echocardiogram - first evaluable to assess for pericardial effusion - 06/12/2025: Patient reports she was unable to pear picker Budesonide due to pharmacy availability, butshe did resume prednisone. Will continue with prednisone 40 mg daily on admission. # GVHD Prophylaxis - Received PTCy; MMF [...] by [facility] in [place], [place]. - Patient will notify team if any vision changes. # Blood Products # TACO - Requires infusion of platelets at a slower rate # Disposition - Ms. Radha Martinez will be admitted for management of abdominal pain. Renita Potts APRN, C.N.P., D.N.P. [1] No current facility-administered medications on file prior to encounter. Current Outpatient Medications on File Prior to Encounter Medication Sig Dispense Refill acyclovir (Zovirax) 400 mg tablet Take 1 tablet (400 mg total) by mouth 2 (two) times a day. 60 tablet 11 ARIPiprazole (Abilify) 10 mg tablet Take 1 tablet (10 mg total) by mouth daily. Dose change 12/02/2024 30 tablet 5 budesonide (Entocort EC) [address] capsule Take 2 capsules (6 mg total) by mouth daily. 60 capsule 1 buprenorphine (Butrans) 5 mcg/hour Place 1 patch on the skin once a week Indication: Chronic Pain/Nonacute Pain. 4 patch 0 cholecalciferol (Vitamin D3) 50 mcg (2,000 Unit) tablet Take 50 mcg by mouth daily. DULoxetine (Cymbalta) [address] capsule Take 2 capsules (120 mg total) by mouth daily. 120 capsule 5 HYDROmorphone (Dilaudid) 1 mg/mL liquid Take 0.5 [...] mg, or 8 doses daily. melatonin 5 mg tablet Take 5 mg by mouth at bedtime. naloxone (Narcan) 4 mg/actuation nasal spray Administer 1 spray (4 mg total) into nostril(s) once for 1 dose. Use 1 spray in 1 nostril. Repeat with second device in other nostril after 2-3 minutes ifno or minimal response. 2 each 0 ondansetron ODT (Zofran-ODT) 4 mg disintegrating tablet Dissolve 1-2 tablets (4- 8 mg total) in the mouth every 8 (eight) hours as needed for nausea or vomiting. 20 tablet 1 pantoprazole (Protonix) 40 mg EC tablet Take 1 tablet (40 mg total) by mouth 2 (two) times a day before morning and evening meals. (Patient taking differently: Take 40 mg by mouth daily before morning meal.) 60 tablet 1 penicillin V potassium (Veetids) 500 mg tablet Take 1 tablet (500 mg total) by mouth 2 (two) times a day. 60 tablet 11 posaconazole (NoxafiL) [address] tablet Take 3 tablets (300 mg total) by mouth daily. 90 tablet 0 predniSONE (Deltasone) 10 mg tablet Take 6 tablets (60 mg total) by mouth daily for 3 days, THEN 5 tablets (50 mg total) daily for 5 days. Please hold while on budesonide. (Patient not taking: No sigreported) prochlorperazine (Compazine) 10 mg tablet Take 1 tablet (10 mg total) by mouth every 6 (six) hours as needed for nausea. 30 tablet 1 sulfamethoxazole-trimethoprim (Bactrim) 400-80 mg per tablet Take 1 tablet by mouth daily. 60 tablet 1 [2] Past Medical History: Diagnosis Date Amblyopia Bilateral Anemia Anxiety Generalized Disorder Depressive Disorder Fibromyalgia 2020 Headache Unspecified Irritable Bowel Syndrome, Unspecified 2016 Leukemia Migraine Headache Other Injury Of Unspecified Body Region Strabismus [3] Past Surgical History: Procedure Laterality Date EYE SURGERY Right 1989 INSERTION CENTRAL VENOUS LINE N/A 12/03/2024 Procedure: INSERTION CENTRAL VENOUS LINE, [place]; Surgeon: Brianna Hernandez M.D., Ph.D.; Location: [facility] OR documented in this encounter Consult Notes * Therese Bass RDN, LD - 06/13/2025 3:09 PM CDTAssociated Order(s): Dietitian Consult (Hospital) Dietitian Consult (Hospital) Referring Provider: Practiceadvisory, Automatedrequest Clinical Nutrition: Initial Assessment Clinical Nutrition was requested to evaluate patient for positive nursing baseline nutrition screenwith a MST score of 2 or greater Completed visit with patient today as part of face to face care. SUBJECTIVE Ms. Martinez is a 35 y.o. female admitted for management of Abdominal Pain. 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 Pertinent History: Medical History[1] Surgical History[2] Current Nutrition: Eating well past two days. Patient reports that her abdominal pain is under control. Provided Snack, oral nutrition supplement and shake and smoothies menu. Her current weight is stable as compared to her pre-transplant weight of 98.9 kg on 12/08/2024. Percentage of Meals Eaten for the past 72 hrs: Percent Meals Eaten (%) 06/13/25 1359 100 06/13/25 1012 100 06/13/25 0929 100 Nutrition Prior to Admission: The patient was struggling with nausea and taste changes. She reportsthat Compazine helps with her nausea. She is eating less and sleeping more. A typical day has been: Breakfast: egg or toast Lunch: turkey sandwich Dinner: Salad or toast again Patient reports that she drinks milk and enjoys this. She used to drink nutritional supplement drinks and is willing to drink these again. Nutrition Education/Counselin/26: Encouraged a protein source at each meal. Provided suggestions for adding protein to her diet. Previous education on post transplant food safety Food Allergies/Intolerances: Allergies[3] OBJECTIVE Current nutrition orders: Dietary Orders (From admission, onward) Start Ordered 06/13/25 1458 Oral supplement -Supplement; Premier Protein (chocolate); 1 each; Take at: Dinner (Oral Nutrition Supplement) Until discontinued Question Answer Comment Type: Supplement Supplement: Premier Protein (chocolate) Size: 1 each Take at: Dinner 06/13/25 1457 06/13/25 145 Oral supplement -Supplement; Boost Soothe (strawberry kiwi); 1 each; Take at: Breakfast (Oral Nutrition Supplement) Until discontinued Question Answer Comment Type: Supplement Supplement: Boost Soothe (strawberry kiwi) Size: 1 each Take at: Breakfast 06/13/25 1457 06/13/25 145 Oral supplement -Supplement; Ensure (vanilla); 1 each; Take at: Lunch (Oral NutritionSupplement) Until discontinued Question Answer Comment Type: Supplement Supplement: Ensure (vanilla) Size: 1 each Take at: Lunch 06/13/25 1457 06/12/25 1643 Adult Diet Regular (Adult Diet) Diet effective now Question: Diet texture: Answer: Regular 06/12/25 1647 Pertinent Labs: Last 3 results Lab Units 06/13/25 0913 06/12/25 1737 SODIUM mmol/L 140 140 POTASSIUM mmol/L 3.8 5.0 CHLORIDE mmol/L 103 106 BUN mg/dL 10 11 CREATININE mg/dL 0.87 0.81 CALCIUM mg/dL 9.0 9.3 Chewing and Swallowing: No issues GI Function:Last BM Date: 06/11/25, , Passing Flatus: Yes Feeling a bit constipated now Integumentary/Wounds: Lines/Drains/Airways Wound Duration Wound 02/18/25 Incision Iliac crest Right;Posterior bmbx site 115 days Medications: Current Medications[4] Anthropometrics: Height: 172.7 cm Admission Weight: 101 kg (06/12/2025) Current Weight: 101 kg [place] Body Weight (Calculated) : 63.9 kg BMI (Calculated): 33.7 kg/m?? Net IO Since Admission: 1,825 mL [06/13/25 1509] Weight history: Wt Readings from Last 12 Encounters: 06/12/25 101 kg 06/07/25 99.8 kg 06/03/25 101 kg 05/28/25 100 kg 05/20/25 103 kg 05/17/25 103 kg 04/29/25 103 kg 04/08/25 101 kg 03/24/25 98.5 kg 03/10/25 98.4 kg 03/03/25 98.5 kg 02/24/25 96.6 kg ASSESSMENT / PLAN Nutrition Diagnosis: Inadequate oral intake related to taste change, fatigue and nausea as evidenced by patient report. Initiated Malnutrition Assessment: ASPEN Criteria of Malnutrition: Nutritional Status: Malnutrition criteria not met Malnutrition in the Context of: Chronic Illness Based on: Energy Intake: Less than 75% of estimated energy requirement for greater than or equal to 1 month Interpretation of Weight Loss: No Change Body Fat: Normal Muscle Mass: Normal Fluid Accumulation: Absent Estimated Needs: Total Calorie Needs: 6029-7209 calories/day Method to Estimate Energy Needs: Elizabeth Messer ( kcal/kg) Weight Used for Equation Calculations: 101 kg Total Protein Needs: 81 - 101 grams/day (Method to Estimate Protein Needs (g/kg): 0.8 - 1 gm/kg) Weight Used to Calculate Protein Needs (Kg): 101 kg Nutrition Intervention: Interventions: Increase nutrient intake with small, frequent meals and/or snacks, Medical food supplement, Provide counseling strategies to apply nutrition knowledge Monitoring/Evaluation: Nutrition parameter to monitor: Meals/Supplement Intake, Weight Status, Pertinent Labs, Nausea/Vomiting, and Constipation/Diarrhea Desired Outcome: Consume 75-100% of 3 meals daily Consume 75% of 2-3 oral nutrition supplements daily Recommendations: No changes at this time; continue current nutrition orders Clinical Nutrition will continue to follow. For questions about patient's nutritional care please contact pager [phone] on weekdays 07:30-16:00 or [phone] on weekends/holidays ([facility] [place] [phone]. [1] Past Medical History: Diagnosis Date Amblyopia Bilateral Anemia Anxiety Generalized Disorder Depressive Disorder Fibromyalgia 2020 Headache Unspecified Irritable Bowel Syndrome, Unspecified 2016 Leukemia Migraine Headache Other Injury Of Unspecified Body Region Strabismus [2] Past Surgical History: Procedure Laterality Date EYE SURGERY Right 1989 INSERTION CENTRAL VENOUS LINE N/A 12/03/2024 Procedure: INSERTION CENTRAL VENOUS LINE, [place]; Surgeon: Brianna Hernandez M.D., Ph.D.; Location: [facility] [3] Allergies Allergen Reactions Oxycodone GI intolerance Severe nausea Bupropion Edema (Reselect Reaction) Grapefruit Other (see comments) Drug-drug interaction with Bosulif (bosutinib); This had also been noted w/ prior therapy which patient is no longer taking (Tasigna (nilotinib)). [4] Current Facility-Administered Medications: acetaminophen tablet 650 mg (TylenoL), 650 mg, oral, Q4H PRN, lAok Russ APRN, C.N.P., D.N.P. acyclovir tablet 400 mg (Zovirax), 400 mg, oral, BID, Alok Russ APRN, C.N.P., D.N.P., 400 mg at 06/13/25 0911 alteplase 1 mg/mL injection 2 mg (Cathflo Activase), 2 mg, intra-catheter, PRN, Alok Russ APRN, C.N.P., D.N.P. alum-mag hydroxide-simeth 200-200-20 mg/5 mL suspension 30 mL (Maalox), 30 mL, oral, Q4H PRN, Alok Russ APRN, C.N.P., D.N.P. ARIPiprazole tablet 10 mg (Abilify), 10 mg, oral, Every afternoon, Renita Potts APRN, C.N.P., D.N.P., 10 mg at 06/12/251742 [START ON 06/19/2025] buprenorphine 5 mcg/hour 1 patch (Butrans), 1 patch, transdermal, Weekly, Renita Potts APRN, C.N.P., D.N.P. cholecalciferol (vitamin D3) tablet 50 mcg, 50 mcg, oral, Daily, Alok Russ APRN, C.N.P.,D.N.P., 50 mcg at 06/13/25 0911 diphenhydrAMINE capsule 25 mg (BenadryL), 25 mg, oral, Q6H PRN, Leighton Andres M.D., 25 mg at 06/13/25 0649 docusate sodium capsule 100 mg (Colace), 100 mg, oral, BID, Analia Carter APRN, C.N.P., 100 mg at 06/13/[address] capsule 120 mg (Cymbalta), 120 mg, oral, Daily, Alok Russ APRN, C.N.P., D.N.P., 120 mg at 06/13/25 0911 enoxaparin injection 40 mg (Lovenox), 40 mg, subcutaneous, Q24H MICHELLE, Alok Russ APRN, C.N.P., D.N.P. HYDROmorphone (PF) injection 0.2 mg (Dilaudid), 0.2 mg, intravenous, Q4H PRN, Leighton Andres M.D., 0.2 mg at 06/13/251 HYDROmorphone tablet 1 mg (Dilaudid), 1 mg, oral, Q4H PRN, Alok Russ APRN, C.N.P., D.N.P., 1 mg at 06/13/25 0646 ibuprofen tablet 400 mg, 400 mg, oral, Q6H PRN, Analia Carter APRN, C.N.P. loperamide capsule 2 mg (Imodium A-D), 2 mg, oral, 4x Daily PRN, Alok Russ APRN, C.N.P.,D.N.P. melatonin tablet 5 mg, 5 mg, oral, Daily at bedtime, Alok Russ APRN, C.N.P., D.N.P., 5 mg at 06/12/252008 naloxone injection 0.2 mg (Narcan), 0.2 mg, intravenous, PRN, Jurgen Alexis, PharmKatalinaDKatalina, M.S., R.Ph., BCPS ondansetron ODT disintegrating tablet 8 mg (Zofran-ODT), 8 mg, oral, Q8H PRN, Alok Russ APRN, C.N.P., D.N.P. pantoprazole DR tablet 40 mg (Protonix), 40 mg, oral, BID before morning and evening meals, Alok Russ APRN, C.N.P., D.N.P., 40 mg at 06/13/25 0646 penicillin V potassium tablet 500 mg (Veetids), 500 mg, oral, BID, Alok Russ APRN, C.N.P., D.N.P., 500 mg at 06/13/[address] tablet 300 mg (NoxafiL), 300 mg, oral, Daily, Alok Russ APRN, C.N.P., D.N.P., 300 mg at 06/13/25 09 predniSONE tablet 40 mg (Deltasone), 40 mg, oral, Daily, Renita Potts APRN, C.N.P., D.N.P., 40mg at 06/13/25 0911 prochlorperazine tablet 10 mg (Compazine), 10 mg, oral, Q6H PRN, Alok Russ APRN, C.N.P.,D.N.P. sennosides-docusate sodium 8.6-50 mg per tablet 1 tablet (Senokot-S), 1 tablet, oral, BID PRN, Analia Carter APRN, C.N.P., 1 tablet at 06/13/25 1310 sodium bicarbonate 1.5 % mouthwash 15 mL, 15 mL, mouth/throat, After meals & bedtime, Alok Russ APRN, C.N.P., D.N.P., 15 mL at 06/13/25 1309 sulfamethoxazole-trimethoprim 400-80 mg per tablet 1 tablet (Bactrim), 1 tablet, oral, Daily, Alok Russ APRN, C.N.P., D.N.P., 1 tablet at 06/13/25 0911 documented in this encounter Nursing Notes * Ariadna Schumacher R.N. - 06/13/2025 3:40 PM CDT Shift Goals: Clinical Goals for the Shift: Pain management/Discharge Identify possible barriers to meeting goals/advancing plan of care: N/A End of Shift Summary: Pain: Abdominal discomfort well controlled with scheduled Tylenol. Education: Patient appointment guide, medications list, and AVS reviewed. All patient questions were answered and concerns addressed. Activity: patient ambulates well independently. Progress towards DC: Progressing as expected. Other comments: No concerns from a nursing standpoint at time of discharge. Ariadna Schumacher R.N. documented in this encounter Miscellaneous Notes * Hospital Course - Analia Carter APRN, C.N.P. - 06/13/2025 12:32 PM CDT Ms. Radha Martinez is a 35 yo female with a past medical history CML. 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 She is currently day +185 . Ms. Martinez admits to the inpatient BMT service today with concern of new increasing abdominal pain in last 24-48 hours. She reports pain to be generalized. She describes as an aching and intermittently sharp pain. Not relieved with bowel movements or passing gas. She reports one soft formed stool 06/11/25. An abdominal CT was done which showed No acute abnormality in the abdomen or pelvis. Moderate colonic stool burden. She has been started on docusate BID and senokot prn. She will try ibuprofen or tylenol for abdominal pain and utilize a heating pad prn. documented in this encounter Plan of Treatment Upcoming Encounters Date Type Department Care Team (Latest Contact Info) Description 06/12/2025 11:59 PM CDT Anesthesia Event Outpatient Procedure Center in [place], [place] [address] [place] [phone] Kristin Friend M.D. [address] [place] [phone] 06/15/2025 9:45 AM CDT Hospital Encounter Outpatient Procedure [facility] in [place], [place] [address] [place] [phone] Jessica Rousseau M.B.B.S. [address] [place] [phone] 06/15/2025 2:00 PM CDT [facility] [place] [place] [facility] in [place], [place] [address] [place] [phone] Jessica Rousseau M.B.B.S. [address] [place] [phone] 06/24/2025 12:30 PM CDT Clinical Communication Virtual Review in [place], [place] 200 [place] [phone] 06/25/2025 8:10 AM CDT Lab Department of Laboratory Medicine and Pathology, [facility], in [place], [place] [address] [place] [phone] Tessa Jesus APRN, C.N.P., D.N.P. [address] [place] [phone] 06/25/2025 9:00 AM CDT Office Visit [facility] [place] [place] [facility] in [place], [place] [address] [place] [phone] Tessa Jesus APRN, C.N.P., D.N.P. [address] [place] [phone] 06/25/2025 9:30 AM CDT Nurse Only [facility] for Transplantation and Clinical Regeneration in [place], [place] [address] [place] [phone] Tessa Jesus APRN, C.N.P., D.N.P. [address] [place] [phone] 06/25/2025 10:30 AM CDT Office Visit [facility] [place] [place] [facility] in [place], [place] [address] [place] [phone] Jessica Rousseau M.B.B.S. [address] [place] [phone] 06/25/2025 12:00 PM CDT Appointment Department of Radiology, [facility], in [place], [place] [address] [place] [phone] Arlen James APRN, C.N.P., D.N.P. [address] [place] [phone] 06/25/2025 12:40 PM CDT Appointment Department of Cardiovascular Diseases in [place], [place] [address] [place] [phone] Analia Carter APRN, C.N.P. [address] [place] [phone] Discharge Disposition: Home or Self Care 06/26/2025 10:00 AM CDT Telemedicine Department of Palliative Care in [place], [place] [address] [place] [phone] Isabel Sellers M.D. [address] [place] [phone] Debbie Shay M.D. [address] [place] [phone] 08/12/2025 10:40 AM CDT Nurse Only Section of Infectious Diseases in [place], [place] [address] [place] [phone] Jessica Rousseau M.B.B.S. [address] [place] [phone] documented as of this encounter Procedures Procedure Name Priority Date/Time Associated Diagnosis Comments CBC WITH DIFFERENTIAL, B Routine 06/13/2025 9:13 AM CDT BASIC METABOLIC PANEL, S/P Routine 06/13/2025 9:[address] ABDOMEN PELVIS WITH IV CONTRAST RAD - Routine (most inpatients and all outpatients) 06/12/2025 6:48 PM CDT CBC NO CALL BACK, REFLEX T/S Routine 06/12/2025 5:37 PM CDT COMPREHENSIVE METABOLIC PANEL, S/P Routine 06/12/2025 5:37 PM CDT documented in this encounter Results * (ABNORMAL) Basic Metabolic Panel (06/13/2025 9:13 AM CDT) Potassium, S 3.8 3.6 - 5.2 mmol/L 06/13/2025 10:04 AM CDT DTL Sodium, S 140 135 - 145 mmol/L 06/13/2025 10:04 AM CDT DTL Chloride, S 103 98 - 107 mmol/L 06/13/2025 10:04 AM CDT DTL Bicarbonate, S 25 22 - 29 mmol/L 06/13/2025 10:04 AM CDT DTL Anion Gap 12 7 - 15 06/13/2025 10:04 AM CDT DTL BUN (Blood Urea Nitrogen), S 10 6 - 21 mg/dL 06/13/2025 10:04 AM CDT DTL Creatinine 0.87 0.59 - 1.04 mg/dL 06/13/2025 10:04 AM CDT DTL Estimated GFR (eGFR) 88 >=60 mL/min/BSA 06/13/2025 10:04 AM CDT DTL Comment: Estimated GFR calculated using the 2020 CKD_EPI creatinine equation. Calcium, Total, S 9.0 8.6 - 10.0 mg/dL 06/13/2025 10:04 AM CDT DTL Glucose, S 152(H) 70 - 140 mg/dL 06/13/2025 10:04 AM CDT DTL Blood (Blood, Venous) 06/13/2025 9:13 AM CDT 06/13/2025 9:34 AM CDT us Alok Russ APRN, C.N.P., D.N.P. LAB BLOO D ADD-ON Final Result [facility] [address] [place] [address], [facility] DTL [facility] [address] [place] [address] * (ABNORMAL) CBC with Differential, Blood (06/13/2025 9:13 AM CDT) Hemoglobin 10.8(L) 11.6 - 15.0 g/dL 06/13/2025 9:44 AM CDT DTL Hematocrit 34.0(L) 35.5 - 44.9 % 06/13/2025 9:44 AM CDT DTL Erythrocytes 3.99 3.92 - 5.13 x10(12)/L 06/13/2025 9:44 AM CDT DTL MCV 85.2 78.2 - 97.9 fL 06/13/2025 9:44 AM CDT DTL RBC Distrib Width 14.1 12.2 - 16.1 % 06/13/2025 9:44 AM CDT DTL Platelet Count 181 157 - 371 x10(9)/L 06/13/2025 9:44 AM CDT DTL Leukocytes 5.4 3.4 - 9.6 x10(9)/L 06/13/2025 9:44 AM CDT DTL Neutrophils 3.78 1.56 - 6.45 x10(9)/L 06/13/2025 9:44 AM CDT DHPM Lymphocytes 1.07 0.95 - 3.07 x10(9)/L 06/13/2025 9:44 AM CDT DTL Monocytes 0.47 0.26 - 0.81 x10(9)/L 06/13/2025 9:44 AM CDT DTL Eosinophils 0.06 0.03 - 0.48 x10(9)/L 06/13/2025 9:44 AM CDT DTL Basophils 0.03 0.01 - 0.08 x10(9)/L 06/13/2025 9:44 AM CDT DTL Blood (Blood, Venous) 06/13/2025 9:13 AM CDT 06/13/2025 9:34 AM CDT Alok Pope Jeb BRANTLEY, C.N.P., DeniseN.P. LAB BLOO D ADD-ON Final Result [facility] [address] [place] [address], [facility] DTL [facility] [address] [place] [address] DHPM [facility] [address] [place] [address] * CT Abdomen Pelvis with IV Contrast (06/12/2025 6:48 PM CDT) Anatomical Region Laterality Modality Abdomen, Pelvis, Abdominal R ST LOS, Abdominal ARZ LOS, Abdominal FLA LOS N/A Computed Tomograp hy, Computed Tomography 06/12/2025 6:45 PM CDT Impressions 06/12/2025 6:58 PM CDT No acute abnormality in the abdomen or pelvis. Moderate colonic stool burden. Narrative 06/12/2025 6:58 PM CDT EXAM: CT ABDOMEN PELVIS WITH IV CONTRAST COMPARISON: CTs from 05/28/2025 and 11/03/2024. FINDINGS: Mild diffuse hepatic steatosis. Focal altered perfusion along the falciform ligament. No suspicious hepatic mass. No splenomegaly. Contracted gallbladder. No bile duct dilation. The pancreas and bilateral adrenal glands as well as kidneys are normal. Partially decompressed bladder. Normal uterus and bilateral ovaries. Trace pelvic free fluid, likely physiologic. No bowel dilation or wall thickening. Moderate colonic stool burden. Normal appendix. Mild mesenteric edema, nonspecific. Shotty retroperitoneal lymph nodes are stable. No new lymphadenopathy. Periaortic hazy fat stranding, similar to prior. Patent vasculature. Clear lung bases. No suspicious osseous lesion. Scattered punctate bone islands. Degenerative disc disease of L5-S1. Questionable focal sclerosis in the right femur medial head, could be an AVN or degeneration. Overall similar to prior, no articular surface collapse. Procedure Note Conchita Capone M.D. - 06/12/2025 EXAM: CT ABDOMEN PELVIS WITH IV CONTRAST COMPARISON: CTs from 05/28/2025 and 11/03/2024. FINDINGS: Mild diffuse hepatic steatosis. Focal altered perfusion alongthe falciform ligament. No suspicious hepatic mass. No splenomegaly. Contracted gallbladder. No bile duct dilation. The pancreas and bilateral adrenal glands as well as kidneys are normal.Partially decompressed bladder. Normal uterus and bilateral ovaries. Trace pelvic free fluid, likelyphysiologic. No bowel dilation or wall thickening. Moderate colonic stool burden.Normal appendix. Mild mesenteric edema, nonspecific. Shotty retroperitoneal lymph nodes arestable. No new lymphadenopathy. Periaortic hazy fat stranding, similar toprior. Patent vasculature. Clear lung bases. No suspicious osseous lesion. Scattered punctate boneislands. Degenerative disc disease of L5-S1. Questionable focal sclerosisin the right femur medial head, could be an AVN or degeneration. Overallsimilar to prior, no articular surface collapse. IMPRESSION: No acute abnormality in the abdomen or pelvis. Moderate colonic stoolburden. Renita Potts APRN, C.N.P., D.N.P. [facility] [place] PROC EDURES Final Result * Comprehensive Metabolic Panel (06/12/2025 5:37 PM CDT) Pathologist [facility] Potassium, S 5.0 3.6 - 5.2 mmol/L 06/12/2025 6:48 PM CDT DTL Sodium, S 140 135 - 145 mmol/L 06/12/2025 6:48 PM CDT DTL Chloride, S 106 98 - 107 mmol/L 06/12/2025 6:48 PM CDT DTL Bicarbonate, S 22 22 - 29 mmol/L 06/12/2025 6:48 PM CDT DTL Anion Gap 12 7 - 15 06/12/2025 6:48 PM CDT DTL BUN (Blood Urea Nitrogen), S 11 6 - 21 mg/dL 06/12/2025 6:48 PM CDT DTL Creatinine 0.81 0.59 - 1.04 mg/dL 06/12/2025 6:48 PM CDT DTL Estimated GFR (eGFR) >90 >=60 mL/min/BS A 06/12/2025 6:48 PM CDT DTL Comment: Estimated GFR calculated using the 2020 CKD_EPI creatinine equation. Calcium, Total, S 9.3 8.6 - 10.0 mg/dL 06/12/2025 6:48 PM CDT DTL Glucose, S 126 70 - 140 mg/dL 06/12/2025 6:48 PM CDT DTL Protein, Total, S 6.9 6.3 - 7.9 g/dL 06/12/2025 6:48 PM CDT DTL Albumin, S 4.4 3.5 - 5.0 g/dL 06/12/2025 6:48 PM CDT DTL Aspartate Aminotransferase (AST), S 25 8 - 43 U/L 06/12/2025 6:48 PM CDT DTL Alkaline Phosphatase, S 92 35 - 104 U/L 06/12/2025 6:48 PM CDT DTL Alanine Aminotransferase (ALT), S 33 7 - 45 U/L 06/12/2025 6:48 PM CDT DTL Bilirubin, Total, S <0.2 0.0 - 1.2 mg/dL 06/12/2025 6:48 PM CDT DTL Blood (Blood, Venous) 06/12/2025 5:37 PM CDT 06/12/2025 5:44 PM CDT Alok Russ APRN, C.N.P., D.N.P. LAB BLOO D ADD-ON Final Result [facility] [address] [place] [address], [facility] [address] [place] [address] * (ABNORMAL) CBC no call back, reflex T/S HGB <8 (06/12/2025 5:37 PM CDT) Hemoglobin 11.8 11.6 - 15.0 g/dL 06/12/2025 5:54 PM CDT DTL Hematocrit 36.3 35.5 - 44.9 % 06/12/2025 5:54 PM CDT DTL Erythrocytes 4.33 3.92 - 5.13 x10(12)/L 06/12/2025 5:54 PM CDT DTL MCV 83.8 78.2 - 97.9 fL 06/12/2025 5:54 PM CDT DTL RBC Distrib Width 14.2 12.2 - 16.1 % 06/12/2025 5:54 PM CDT DTL Platelet Count 203 157 - 371 x10(9)/L 06/12/2025 5:54 PM CDT DTL Leukocytes 6.8 3.4 - 9.6 x10(9)/L 06/12/2025 5:54 PM CDT DTL Neutrophils 5.73 1.56 - 6.45 x10(9)/L 06/12/2025 5:53 PM CDT DHPM Lymphocytes 0.71(L) 0.95 - 3.07 x10(9)/L 06/12/2025 5:54 PM CDT DTL Monocytes 0.33 0.26 - 0.81 x10(9)/L 06/12/2025 5:54 PM CDT DTL Eosinophils <0.03 0.03 - 0.48 x10(9)/L 06/12/2025 5:54 PM CDT DTL Basophils <0.03 0.01 - 0.08 x10(9)/L 06/12/2025 5:54 PM CDT DTL Blood (Blood, Venous) 06/12/2025 5:37 PM CDT 06/12/2025 5:44 PM CDT us Alok Russ APRN, C.N.P., D.N.P. LAB BLOO D NON ADD-ON Final Result [facility] [address] [place] [address], [facility] DTL [facility] [address] [place] [address] DHPM [facility] [address] [place] [address] documented in this encounter Visit Diagnoses Diagnosis Abdominal Pain- Primary documented in this encounter Admitting Diagnoses Diagnosis Abdominal Pain documented in this encounter Administered Medications Inactive Administered Medications - up to 3 most recent administrations Medication Order MAR Action Action Date Dose Rate Site acyclovir tablet 400 mg (Zovirax) 400 mg, oral, 2 times daily, First dose on Sun06/12/25 at 2100, Drug Monitoring Program: Pharmacist to adjust medication dosing based on indication and drug clearance factors., Indications: Prophylaxis, medicalIndications:Prophylaxis, medical Given 06/13/2025 9:11 AM CDT 400 mg Given 06/12/2025 8:09 PM CDT 400 mg ARIPiprazole tablet 10 mg (Abilify) 10 mg, oral, Every afternoon, First dose (after last modification) on Sun06/12/25 at 1730 Given 06/13/2025 3:30 PM CDT 10 mg Given 06/12/2025 5:43 PM CDT 10 mg cholecalciferol (vitamin D3) tablet 50 mcg 50 mcg, oral, Daily, First dose on Sun06/13/25 at 0900, cholecalciferol (vitamin D3) orderable was interchanged for cholecalciferol (vitamin D3) tablet/capsule Given 06/13/2025 9:11 AM C DT 50 mcg diphenhydrAMINE capsule 25 mg (BenadryL) 25 mg, oral, Every 6 hours PRN, itching, Starting on Sun06/13/25 at 0439 Given 06/13/2025 6:49 AM CDT 25 mg docusate sodium capsule 100 mg (Colace) 100 mg, oral, 2 times daily, First dose on Sun06/13/25 at 0900, Do NOT crush or chew. Given 06/13/2025 9:52 AM CDT [address] capsule 120 mg (Cymbalta) 120 mg, oral, Daily, First dose on Sun06/13/25 at 0900, See tube feeding guidelines for tube feeding administration instructions. Given 06/13/2025 9:11 AM CDT 120 mg HYDROmorphone (PF) injection 0.2 mg (Dilaudid) 0.2 mg, intravenous, Every 4 hours PRN, Breakthrough pain between PO doses, Starting on Sun06/12/25 at 2347 Given 06/13/2025 12:02 AM CDT 0.2 mg HYDROmorphone tablet 1 mg (Dilaudid) 1 mg, oral, Every 4 hours PRN, severe pain or score 7-10 of 10, Starting on Sun06/12/25 at 1806, Does patient have renal impairment, frailty, or advanced age (avoid morphine) and unable to take oxycodone? No, Did the patient fail other oral opioids during hospitalization? No, Does the patient have documented allergies to oxycodone and/or morphine? Yes, Is the patient on hydromorphone chronically for pain? No, Indications: Chronic Pain/Nonacute PainIndications:Chronic Pain/Nonacute Pain Given 06/13/2025 6:46 AM CDT 1 mg Given 06/12/2025 8:09 PM CDT 1 mg ibuprofen tablet 400 mg 400 mg, oral, Every 6 hours PRN, moderate pain or score 4-6 of 10, Starting on 06/13/25 at 1001, Take with food or milk if GI disturbances occur with use. iohexoL 300 mg iodine/mL solution 1-200 mL (Omnipaque) 1-200 mL, intravenous, Once in imaging, contrast, Starting on Sun06/12/25 at 1835, For 1 dose, Imaging Protocol Orders, Dose per Radiant Medication Guidelines Given 06/12/2025 6:35 PM CDT 140 mL melatonin tablet 5 mg 5 mg, oral, Daily at bedtime, First dose on Sun06/12/25 at 2100 Given 06/12/2025 8:09 PM CDT 5 mg naloxone injection 0.2 mg (Narcan) 0.2 mg, intravenous, As needed, reversal, respiratory depression, Starting on Sun06/12/[address] tablet 40 mg (Protonix) 40 mg, oral, 2 times daily before morning and evening meals, First dose on Sun06/13/25 at 0700, Swallow whole. Do NOT crush, chew, or split tablet. Given 06/13/2025 3:30 PM CDT 40 mg Given 06/13/2025 6:46 AM CDT 40 mg penicillin V potassium tablet 500 mg (Veetids) 500 mg, oral, 2 times daily, First dose on Sun06/12/25 at 2100, Drug Monitoring Program: Pharmacist to adjust medication dosing based on indication and drug clearance factors., Indications: Prophylaxis, medicalIndications:Prophylaxis, medical Given 06/13/2025 9:11 AM CDT 500 mg Given 06/12/2025 8:09 PM CDT [address] tablet 300 mg (NoxafiL) 300 mg, oral, Daily, First dose on 06/13/25 at 0900, Swallow whole. Do NOT crush, chew, or split tablet., Drug Monitoring Program: Pharmacist to adjust medication dosing based on indication and drug clearance factors., Indications: Prophylaxis, medicalIndications:Prophylaxis, medical Given 06/13/2025 9:11 AM CDT 300 mg predniSONE tablet 40 mg (Deltasone) 40 mg, oral, Daily, First dose on 06/13/25 at 0900 Given 06/13/2025 9:11 AM CDT 40 mg sennosides-docusate sodium 8.6-50 mg per tablet 1 tablet (Senokot-S) 1 tablet, oral, 2 times daily PRN, constipation, Starting on Sun06/13/25 at 0821 Given 06/13/2025 1:10 PM CDT 1 tablet sodium bicarbonate 1.5 % mouthwash 15 mL 15 mL, mouth/throat, 4 times daily after meals and bedtime, First dose on Sun06/12/25 at 1800 Given 06/13/2025 1:09 PM CDT 15 mL Given 06/13/2025 9:52 AM CDT 15 mL Given 06/12/2025 5:43 PM CDT 15 mL sodium chloride (PF) 0.9 % injection 1-100 mL 1-100 mL, intravenous, Once, On Sun06/12/25 at 1900, For 1 dose, Imaging Protocol Orders, Dose per Radiant Medication Guidelines Given 06/12/2025 6:35 PM CDT 50 mL sulfamethoxazole-trimethoprim 400-80 mg per tablet 1 tablet (Bactrim) 1 tablet, oral, Daily, First dose on 06/13/25 at 0900, Drug Monitoring Program: Pharmacist to adjust medication dosing based on indication and drug clearance factors., Indications: Prophylaxis, medicalIndications:Prophylaxis, medical Given 06/13/2025 9:11 AM CDT 1 ta blet documented in this encounter Active and Recently Administered Medications Times are shown in CDT. Scheduled Medication Order 06/11/2025 06/12/2025 06/13/2025 acyclovir tablet 400 mg (Zovirax) 400 mg, oral, 2 times daily, First dose on Sun06/12/25 at 2100, Drug Monitoring Program: Pharmacist to adjust medication dosing based on indication and drug clearance factors., Indications: Prophylaxis, medical 2008 (Given - Provider: Raymond Perez R.N.) 910 (Given - Provider: Ariadna Schumacher R.N.) ARIPiprazole tablet 10 mg (Abilify) 10 mg, oral, Every afternoon, First dose (after last modification) on Sun06/12/25 at 1730 1743 (Given - Provider: Ariadna Schumacher R.N.) 1530 (Given - Provider: Ariadna Schumacher R.N.) buprenorphine 5 mcg/hour 1 patch (Butrans) 1 patch, transdermal, Administer over 7 Days, Weekly, First dose (after last modification) on Sun06/19/25 at 0900, Indications: Chronic Pain/Nonacute Pain cholecalciferol (vitamin D3) tablet 50 mcg 50 mcg, oral, Daily, First dose on 06/13/25 at 0900, cholecalciferol (vitamin D3) orderable was interchanged for cholecalciferol (vitamin D3) tablet/capsule 910 (Given - Provid er: Ariadna Schumacher R.N.) docusate sodium capsule 100 mg (Colace) 100 mg, oral, 2 times daily, First dose on 06/13/25 at 0900, Do NOT crush or chew. 951 (Given - Provid er: Ariadna Schumacher R.N.) DULoxetine DR capsule 120 mg (Cymbalta) 120 mg, oral, Daily, First dose on 06/13/25 at 0900, See tube feeding guidelines for tube feeding administration instructions. 910 (Given - Provid er: Ariadna Schumacher R.N.) enoxaparin injection 40 mg (Lovenox) 40 mg, subcutaneous, Every 24 hours scheduled, First dose on Sun06/12/25 at 1715 1742 (Not Given - Provider: Ariadna Schumacher R.N. - Reason: Patient/family refused) 911 (Not Given - Provider: Ariadna Schumacher R.N. - Reason: Patient/family refused) melatonin tablet 5 mg 5 mg, oral, Daily at bedtime, First dose on Sun06/12/25 at 2100 2008 (Given - Provider: Hanan S Awil, R.N.) pantoprazole DR tablet 40 mg (Protonix) 40 mg, oral, 2 times daily before morning and evening meals, First dose on Sun06/13/25 at 0700, Swallow whole. Do NOT crush, chew, or split tablet. 0646 (Given - Provid er: Marko Shine RKatalinaNKatalina)1530 (Given - Provider: Ariadna Schumacher R.N.) penicillin V potassium tablet 500 mg (Veetids) 500 mg, oral, 2 times daily, First dose on Sun06/12/25 at 2100, Drug Monitoring Program: Pharmacist to adjust medication dosing based on indication and drug clearance factors., Indications: Prophylaxis, medical 2008 (Given - Provider: Raymond Perez R.N.) 910 (Given - Provider: Ariadna Schumacher R.N.) posaconazole DR tablet 300 mg (NoxafiL) 300 mg, oral, Daily, First dose on 06/13/25 at 0900, Swallow whole. Do NOT crush, chew, or split tablet., Drug Monitoring Program: Pharmacist to adjust medication dosing based on indication and drug clearance factors., Indications: Prophylaxis, medical 910 (Given - Provid er: Ariadna Schumacher R.N.) predniSONE tablet 40 mg (Deltasone) 40 mg, oral, Daily, First dose on Sun06/13/25 at 0900 0911 (Given - Provid er: Ariadna Schumacher R.N.) sodium bicarbonate 1.5 % mouthwash 15 mL 15 mL, mouth/throat, 4 times daily after meals and bedtime, First dose on Sun06/12/25 at 1800 1743 (Given - Provider: Ariadna Schumacher R.N.)2009 (Not Given - Provider: Raymond Perez R.N. - Reason: Patient/family refused) 0952 (Given - Provider: Ariadna Schumacher R.N.)1309 (Given - Provider: Ariadna Schumacher R.N.) sodium chloride (PF) 0.9 % injection 1-100 mL (COMPLETED) 1-100 mL, intravenous, Once, On Sun06/12/25 at 1900, For 1 dose, Imaging Protocol Orders, Dose per Radiant Medication Guidelines 1835 (Given - Provider: Saranya Arambula) sulfamethoxazole-trimethopri m 400-80 mg per tablet 1 tablet (Bactrim) 1 tablet, oral, Daily, First dose on 06/13/25 at 0900, Drug Monitoring Program: Pharmacist to adjust medication dosing based on indication and drug clearance factors., Indications: Prophylaxis, medical 0911 (Given - Provid er: Ariadna Schumacher RKatalinaN.) PRN Medication Order 06/11/2025 06/12/2025 06/13/2025 acetaminophen tablet 650 mg (TylenoL) 650 mg, oral, Every 4 hours PRN, mild pain or score 1-3 of 10, Starting on Sun06/12/25 at 1646, Check temperature prior to administration alteplase 1 mg/mL injection 2 mg (Cathflo Activase) 2 mg, intra-catheter, As needed, Per catheter lumen. May repeat x1 dose in 2 hours, Starting on Sun06/12/25 at 1642, Maximum dose is 4 mg per catheter [...] at room temperature prior to intra-catheter instillation. alum-mag hydroxide-simeth 200-200-20 mg/5 mL suspension 30 mL (Maalox) 30 mL, oral, Every 4 hours PRN, indigestion, dyspepsia, Starting on Sun06/12/25 at 1646 diphenhydrAMINE capsule 25 mg (BenadryL) 25 mg, oral, Every 6 hours PRN, itching, Starting on 06/13/25 at 0439 0649 (Given - Provid er: Marko Shine, R.N.) HYDROmorphone (PF) injection 0.2 mg (Dilaudid) 0.2 mg, intravenous, Every 4 hours PRN, Breakthrough pain between PO doses, Starting on Sun06/12/25 at 2347 0002 (Given - Provid er: Marko Shine, R.N.) HYDROmorphone tablet 1 mg (Dilaudid) 1 mg, oral, Every 4 hours PRN, severe pain or score 7-10 of 10, Starting on Sun06/12/25 at 1806, Does patient have renal impairment, frailty, or advanced age (avoid morphine) and unable to take oxycodone? No, Did the patient fail other oral opioids during hospitalization? No, Does the patient have documented allergies to oxycodone and/or morphine? Yes, Is the patient on hydromorphone chronically for pain? No, Indications: Chronic Pain/Nonacute Pain 2008 (Given - Provider: Raymond Perez R.N.) 0646 (Given - Provider: Marko Shine RKatalinaNKatalina) ibuprofen tablet 400 mg 400 mg, oral, Every 6 hours PRN, moderate pain or score 4-6 of 10, Starting on Sun06/13/25 at 1001, Take with food or milk if GI disturbances occur with use. iohexoL 300 mg iodine/mL solution 1-200 mL (Omnipaque) (COMPLETED) 1-200 mL, intravenous, Once in imaging, contrast, Starting on Sun06/12/25 at 1835, For 1 dose, Imaging Protocol Orders, Dose per Radiant Medication Guidelines 1834 (Given - Provider: Saranya Arambula) loperamide capsule 2 mg (Imodium A-D) 2 mg, oral, 4 times daily PRN, diarrhea, Starting on Sun06/12/25 at 1652, loperamide (IMODIUM A-D) orderable was interchanged for the loperamide (IMODIUM A-D) tablet/capsule naloxone injection 0.2 mg (Narcan) 0.2 mg, intravenous, As needed, reversal, respiratory depression, Starting on Sun06/12/25 at 1706 ondansetron ODT disintegrating tablet 8 mg (Zofran-ODT) 8 mg, oral, Every 8 hours PRN, nausea, vomiting, Starting on Sun06/12/25 at 1652, When splitting ODT at bedside, handle with gloves and a pill splitter to prevent moisture contact. prochlorperazine tablet 10 mg (Compazine) 10 mg, oral, Every 6 hours PRN, nausea, Starting on Sun06/12/25 at 1653 sennosides-docusate sodium 8.6-50 mg per tablet 1 tablet (Senokot-S) 1 tablet, oral, 2 times daily PRN, constipation, Starting on 06/13/25 at 0821 1310 (Given - Provid er: Ariadna Schumacher R.N.) documented in this encounter Additional Health Concerns Infection Onset Date Last Indicated Resolved Time Protective Environment 03/02/2023 03/02/2023 Assessment Noted Time PHQ-9 Depression Total Score: 2 12/10/19 25 2:46 PM [employer] documented as of this encounter Care Teams Converting Operator Relationship Specialty Start Date End Date Renzo Andres M.D. [address] [place] [id number] PCP - General Family Medicine 04/25/23 documented as of this encounter
--- OUTSIDE RECORDS SUMMARY | 2025-06-14 18:18 | XMS_ITS | Encounter Summary ---
Author Organization [facility] Address [address] [place] [address] Care Team Providers Care Logistics Clerk Name Role Phone Renzo Andres M.D. Primary Care Provider Encounter Details Date Type Department Care Team (Late st Contact Info) Description 05/06/2009 Historical Ophthalmology [facility] Reginald Peter O.D. [address] [place] [phone] Social History Tobacco Use Types Packs/Day Years Used Date Smoking Tobacco: Never Assessed Comments Unknown Sex and Gender Information Value Date Recorded Sex Assigned at Female 12/26/2018 8:37 PM PANTOGRAPH TRANSFERRER Legal Sex Female 2:43 PM PANTOGRAPH TRANSFERRER Gender Identity Female 12/26/2018 8:37 PM PANTOGRAPH TRANSFERRER Sexual Orientation Choose not to disclose 2020 [...] (hyperopic astigmatism). CDM Reports - [facility]YEGEN Id: [id number] Status: Fnl documented in this encounter Plan of Treatment Upcoming Encounters Date Type Department Care Team (Latest Contact Info) Description 06/12/2025 11:59 PM CDT Anesthesia Event Outpatient Procedure Center in [address] [phone] Kristin Friend M.D. [address] [place] [phone] 06/15/2025 9:45 AM CDT Hospital Encounter Outpatient Procedure Center in [place], [place] [address] [place] [phone] Jessica Rousseau M.B.B.S. [address] [place] [phone] 06/15/2025 2:00 PM CDT [facility] [address] [phone] Jessica Rousseau M.B.B.S. [address] [place] [phone] 06/24/2025 12:30 PM CDT Clinical Communication Virtual Review in [place], [place] 200 [place] [address] 06/25/2025 8:10 AM CDT Lab Department of Laboratory Medicine and Pathology, [facility], in [place], [place] [address] [place] [address] [place] [address] Tessa Jesus APRN, C.N.P., D.N.P. [address] [place] [phone] 06/25/2025 9:00 AM CDT [facility] in [place], [place] [address] [place] [address] Tessa Jesus APRN, C.N.P., D.N.P. [address] [place] [phone] 06/25/2025 9:30 AM CDT Nurse Only [facility] Transplantation and Clinical Regeneration in [place], [place] [address] [place] [address] Tessa Jesus APRN, C.N.P., D.N.P. [address] [place] [phone] 06/25/2025 10:30 AM CDT [facility] in [place], [place] [address] [place] [address] Jessica Rousseau M.B.B.S. [address] [place] [phone] 06/25/2025 12:00 PM CDT Appointment Department of Radiology, [facility], in [place], [place] [address] [place] [address] Arlen James APRN, C.N.P., D.N.P. [address] [place] [phone] 06/25/2025 12:40 PM CDT Appointment Department of Cardiovascular Diseases in [place], [place] [address] [place] [phone] Analia Carter, KARON, C.N.P. [address] [place] [phone] Discharge Disposition: Home or Self Care 06/26/2025 10:00 AM CDT Telemedicine Department of Palliative Care in [place], [place] [address] [place] [phone] Isabel Sellers M.D. [address] [place] [phone] Debbie Shay M.D. [address] [place] [phone] 08/12/2025 10:40 AM CDT Nurse Only Section of Infectious Diseases in [place], [place] [address] [place] [phone] Jessica Rousseau M.B.B.S. [address] [place] [phone] documented as of this encounter Visit Diagnoses Not on filedocumented in this encounter Additional Health Concerns Infection Onset Date Last Indicated Resolved Time COVID19 Pending 04/20/2020 04/20/2020 04/23/2020 2 :28 AM CDT COVID19 Pending 07/07/2020 07/07/2020 07/07/2020 7 :12 PM CDT COVID19 Pending 03/15/2021 03/15/2021 03/16/2021 1 1:39 AM CDT COVID19 01/07/2023 01/07/2023 01/27/2023 5:15 AM PANTOGRAPH TRANSFERRER Protective Environment 03/02/2023 03/02/2023 COVID19 Pending 12/04/2024 12/04/2024 12/04/2024 1 0:20 AM PANTOGRAPH TRANSFERRER documented as of this encounter Care Teams Logistics Clerk Relationship Specialty Start Date End Date Renzo Andres M.D. [address] [place] [address] [place] [phone] PCP - General Family Medicine 04/25/23 documented as of this encounter
--- OUTSIDE RECORDS SUMMARY | 2025-06-14 18:18 | XMS_ITS | Encounter Summary ---
Author Organization [facility] Address [address] [place] [address] Care Team Providers Care Marketing Automation Analyst Name Role Phone Renzo Andres M.D. Primary Care Provider Encounter Details Date Type Department Care Team (Late st Contact Info) Description 10/25/2022 Orders Only [facility] [address] [place] [phone] [facility], Provider, MD Screening Test Laboratory Social [...] place to sleep or slept in a custodial (including now)? Patient refused 01/25/2022 Depression Answer Date Recor ded PHQ-9 Total Score (max 27) 11 08/01 Education Answer Date Recorded What is the highest level of school you have completed or the highest degree you have received? Some college, no degree 04/24/2019 Comments No Sex and Gender Information Value Date Recorded Sex Assigned at Female 12/26/2018 8:37 PM DIGITAL HARDWARE DESIGN ENGINEER Legal Sex Female 2:43 PM DIGITAL HARDWARE DESIGN ENGINEER Gender Identity Female 12/26/2018 8:37 PM DIGITAL HARDWARE DESIGN ENGINEER Sexual Orientation Choose not to disclose 2020 3:46 PM CDT documented as of this encounter Plan of Treatment Upcoming Encounters Date Type Department Care Team (Latest Contact Info) Description 06/12/2025 11:59 PM CDT Anesthesia Event Outpatient Procedure Center in [place], [place] [address] [place] [phone] Kristin Friend M.D. [address] [place] [phone] 06/15/2025 9:45 AM CDT Hospital Encounter Outpatient Procedure Center in [place], [place] [address] [place] [phone] Jessica Rousseau M.B.B.S. [address] [place] [phone] 06/15/2025 2:00 PM CDT Office Visit [facility] Transplantation and Clinical Regeneration in [place], [place] [address] [place] [phone] Jessica Rousseau M.B.B.S. [address] [place] [phone] 06/24/2025 12:30 PM CDT Clinical Communication Virtual Review in [place], [place] 200 [place] [address] 06/25/2025 8:10 AM CDT Lab Department of Laboratory Medicine and Pathology, [facility] in [place], [place] [address] [place] [phone] Tessa Jesus APRN, C.N.P., D.N.P. [address] [place] [phone] 06/25/2025 9:00 AM CDT Office Visit [facility] Transplantation and Clinical Regeneration in [place], [place] [address] [place] [phone] Tessa Jesus APRN, C.N.P., D.N.P. [address] [place] [phone] 06/25/2025 9:30 AM CDT Nurse Only [facility] Transplantation and Clinical Regeneration in [place], [place] [address] [place] [address] Tessa Jesus APRN, C.N.P., D.N.P. [address] [place] [phone] 06/25/2025 10:30 AM CDT Office Visit [facility] for Transplantation and Clinical Regeneration in [place], [place] [address] [place] [phone] Jessica Rousseau M.B.B.S. [address] [place] [phone] 06/25/2025 12:00 PM CDT Appointment Department of Radiology, [facility], in [place], [place] [address] [place] [address] Arlen James APRN, C.N.P., D.N.P. [address] [place] [phone] 06/25/2025 12:40 PM CDT Appointment Department of Cardiovascular Diseases in [place], [place] [address] [place] [phone] Analia Carter APRN, C.N.P. [address] [place] [phone] Discharge Disposition: Home or Self Care 06/26/2025 10:00 AM CDT Telemedicine Department of Palliative Care in [place], [place] [address] [place] [phone] Isabel Sellers M.D. [address] [place] [phone] Debbie Shay M.D. [address] [place] [phone] 08/12/2025 10:40 AM CDT Nurse Only Section of Infectious Diseases in [place], [place] [address] [place] [phone] Jessica Rousseau M.B.B.S. [address] [place] [address] documented as of this encounter Visit Diagnoses Diagnosis Screening Test Laboratory documented in this encounter Additional Health Concerns Infection Onset Date Last Indicated Resolved Time COVID19 01/07/2023 01/07/2023 01/27/2023 5:15 AM DIGITAL HARDWARE DESIGN ENGINEER Protective Environment 03/02/2023 03/02/2023 COVID19 Pending 12/04/2024 12/04/2024 12/04/2024 1 0:20 AM DIGITAL HARDWARE DESIGN ENGINEER Assessment Noted Time PHQ-9 Depression Total Score: 11 022 10:21 AM CDT documented as of this encounter Care Teams Marketing Automation Analyst Relationship Specialty Start Date End Date Renzo Andres M.D. [address] [place] [phone] PCP - General Family Medicine 04/25/23 documented as of this encounter
--- OUTSIDE RECORDS SUMMARY | 2025-06-14 18:18 | XMS_ITS | Encounter Summary ---
Author Organization [facility] Address [address] [place] [address] Care Team Providers Care Business Office Technician Name Role Phone Renzo Andres M.D. Primary Care Provider [phone] Reason for Visit * Reason Onset Date Comments Nurse Assessment 04/01/2025 Encounter Details Date Type Department Care Team (Latest Contact Info) Description 04/01/2025 Clinical Communication [facility] in [place], [place] [address] [place] [address] Lucy Stout, RKatalinaN., BMT-CN, O.C.N. Nurse Assessment Social History Tobacco Use Types Packs/Day Years Used Date Smoking Tobacco: Never Smokeless Tobacco: Never Alcohol Use Standard Drinks/Week Comments Yes 0 (1 standard drink = 0.6 oz pur e alcohol) social [facility] Utilities Answer Date Recorded In the [...] living situation today? I have a [facility] place to live 12/19/2024 Education Answer Date Recorded What is the highest level of school you have completed or the highest degree you have received? Some college, no degree 04/24/2019 Comments No Sex and Gender Information Value Date Recorded Sex Assigned at Female 12/26/2018 8:37 PM SLOT ATTENDANT Legal Sex Female 2:43 PM SLOT ATTENDANT Gender Identity Female 12/26/2018 8:37 PM SLOT ATTENDANT Sexual Orientation Choose not to disclose [...] CDT Anesthesia Event Outpatient Procedure Center in [address] [address] Kristin Friend M.D. [address] [place] [phone] 06/15/2025 9:45 AM CDT Hospital Encounter Outpatient Procedure Center in [address] [address] Jessica Rousseau M.B.B.S. [address] [place] [phone] 06/15/2025 2:00 PM CDT Office Visit Pedro Nazario [facility] for Transplantation and Clinical Regeneration in [address] [address] Jessica Rousseau M.B.B.S. [address] [place] [phone] 06/24/2025 12:30 PM CDT Clinical Communication Virtual Review in [address] [phone] 06/25/2025 8:10 AM CDT Lab Department of Laboratory Medicine and Pathology, [facility], in [address] [phone] Tessa Jesus, KARON, C.N.P., D.N.P. [address] [place] [phone] 06/25/2025 9:00 AM CDT [facility] in [place], [place] [address] [place] [address] Tessa Jesus APRN, C.N.P., D.N.P. [address] [place] [phone] 06/25/2025 9:30 AM CDT Nurse Only [facility] in [place], [place] [address] [place] [address] Tessa Jesus APRN, C.N.P., D.N.P. [address] [place] [phone] 06/25/2025 10:30 AM CDT Office Visit [facility] in [place], [place] [address] [place] [address] Jessica Rousseau M.B.BKatalinaSKatalina [address] [place] [phone] 06/25/2025 12:00 PM CDT Appointment Department of Radiology, [facility], in [place], [place] [address] [place] [address] Arlen James APRN, C.N.P., D.N.P. [address] [place] [phone] 06/25/2025 12:40 PM CDT Appointment Department of Cardiovascular Diseases in [place], [place] [address] [place] [address] Analia Carter APRN, C.N.P. [address] [place] [phone] Discharge Disposition: Home or Self Care 06/26/2025 10:00 AM CDT Telemedicine Department of Palliative Care in [place], [place] [address] [place] [phone] Isabel Sellers M.D. [address] [place] [phone] Debbie Shay M.D. [address] [place] [phone] 08/12/2025 10:40 AM CDT Nurse Only Section of Infectious Diseases in [place], [place] [address] [place] [phone] Jessica Rousseau M.B.B.S. [address] [place] [phone] documented as of this encounter Visit Diagnoses Not on filedocumented in this encounter Additional Health Concerns Infection Onset Date Last Indicated Resolved Time Protective Environment 03/02/2023 03/02/2023 Assessment Noted Time PHQ-9 Depression Total Score: 2 12/10/19 25 2:46 PM SLOT ATTENDANT documented as of this encounter Care Teams Business Office Technician Relationship Specialty Start Date End Date Renzo Andres M.D. [address] [place] [phone] PCP - General Family Medicine 04/25/23 documented as of this encounter
--- OUTSIDE RECORDS SUMMARY | 2025-06-14 18:18 | XMS_ITS | Encounter Summary ---
Author Organization [facility] Address [address] [place] [address] Care Team Providers Care Exhibit Artist Name Role Phone Renzo Andres M.D. Primary Care Provider Encounter Details Date Type Department Care Team (Late st Contact Info) Description 02/16/2005 Historical Ophthalmology RST OPH Fercho Jeronimo M.D. Social History Tobacco Use Types Packs/Day Years Used Date Smoking Tobacco: Never Assessed Comments Unknown Sex and Gender Information Value Date Recorded Sex Assigned at Female 12/26/2018 8:37 PM ALL SOURCE INTELLIGENCE ANALYST Legal Sex Female 2:43 PM ALL SOURCE INTELLIGENCE ANALYST Gender Identity Female 12/26/2018 8:37 PM ALL SOURCE INTELLIGENCE ANALYST Sexual Orientation Choose not to disclose 2020 [...] both eyes CDM Reports - EYEGEN Id: [id number] Status: Fnl documented in this encounter Plan of Treatment Upcoming Encounters Date Type Department Care Team (Latest Contact Info) Description 06/12/2025 11:59 PM CDT Anesthesia Event Outpatient Procedure Center in [place], [place] [address] [place] [phone] Kristin Friend M.D. [address] [place] [phone] 06/15/2025 9:45 AM CDT Hospital Encounter Outpatient Procedure Center in [address] [phone] Jessica Rousseau M.B.B.S. [address] [place] [phone] 06/15/2025 2:00 PM CDT [facility] in [address] [phone] Jessica Rousseau M.B.B.S. [address] [place] [phone] 06/24/2025 12:30 PM CDT Clinical Communication Virtual Review in [address] [phone] 06/25/2025 8:10 AM CDT Lab Department of Laboratory Medicine and Pathology, [facility], in [address] [phone] Tessa Jesus, KARON, C.N.P., D.N.P. [address] [place] [phone] 06/25/2025 9:00 AM CDT Office [facility] in [place], [place] [address] [place] [address] Tessa Jesus APRN, C.N.P., D.N.P. [address] [place] [phone] 06/25/2025 9:30 AM CDT Nurse Only [facility] Transplantation and Clinical Regeneration in [place], [place] [address] [place] [address] Tessa Jesus APRN, C.N.P., D.N.P. [address] [place] [phone] 06/25/2025 10:30 AM CDT Office Visit [facility] in [place], [place] [address] [place] [address] Jessica Rousseau M.B.B.S. [address] [place] [phone] 06/25/2025 12:00 PM CDT Appointment Department of Radiology, [facility], in [place], [place] [address] [place] [address] Arlen James APRN, C.N.P., D.N.P. [address] [place] [phone] 06/25/2025 12:40 PM CDT Appointment Department of Cardiovascular Diseases in [place], [place] [address] [place] [address] Analia Carter APRN, C.N.P. [address] [place] [phone] Discharge Disposition: Home or Self Care 06/26/2025 10:00 AM CDT Telemedicine Department of Palliative Care in [place], [place] [address] [place] [phone] Isabel Sellers M.D. [address] [place] [phone] Debbie Shay M.D. [address] [place] [phone] 08/12/2025 10:40 AM CDT Nurse Only Section of Infectious Diseases in [place], [place] [address] [place] [phone] Jessica Rousseau M.B.B.S. [address] [place] [phone] documented as of this encounter Visit Diagnoses Not on filedocumented in this encounter Additional Health Concerns Infection Onset Date Last Indicated Resolved Time COVID19 Pending 04/20/2020 04/20/2020 04/23/2020 2 :28 AM CDT COVID19 Pending 07/07/2020 07/07/2020 07/07/2020 7 :12 PM CDT COVID19 Pending 03/15/2021 03/15/2021 03/16/2021 1 1:39 AM CDT COVID19 01/07/2023 01/07/2023 01/27/2023 5:15 AM ALL SOURCE INTELLIGENCE ANALYST Protective Environment 03/02/2023 03/02/2023 COVID19 Pending 12/04/2024 12/04/2024 12/04/2024 1 0:20 AM ALL SOURCE INTELLIGENCE ANALYST documented as of this encounter Care Teams Exhibit Artist Relationship Specialty Start Date End Date Renzo Andres M.D. [address] [place] [address] [place] [address] PCP - General Family Medicine 04/25/23 documented as of this encounter
--- OUTSIDE RECORDS SUMMARY | 2025-06-14 18:18 | XMS_ITS | Encounter Summary ---
Author Organization [facility] Address [address] [place] [address] Care Team Providers Care Wire Mesh Filter Fabricator Name Role Phone Renzo Andres M.D. Primary Care Provider [phone] Encounter Details Date Type Department Care Team (Late st Contact Info) Description 12/24/2002 Historical Ophthalmology RST OPH Fercho Jeronimo M.D. Social History Tobacco Use Types Packs/Day Years Used Date Smoking Tobacco: Never Assessed Comments Unknown Sex and Gender Information Value Date Recorded Sex Assigned at Female 12/26/2018 8:37 PM AUTOMOTIVE EXHAUST EMISSIONS TECHNICIAN Legal Sex Female 2:43 PM AUTOMOTIVE EXHAUST EMISSIONS TECHNICIAN Gender Identity Female 12/26/2018 8:37 PM AUTOMOTIVE EXHAUST EMISSIONS TECHNICIAN Sexual Orientation Choose not to disclose [...] 1) given. CDM Reports - EYEGEN Id: [id number] Status: Fnl documented in this encounter Plan of Treatment Upcoming Encounters Date Type Department Care Team (Latest Contact Info) Description 06/12/2025 11:59 PM CDT Anesthesia Event Outpatient Procedure Center in [address] [phone] Kristin Friend M.D. [address] [place] [phone] 06/15/2025 9:45 AM CDT Hospital Encounter Outpatient Procedure Center in [address] [phone] Jessica Rousseau M.B.B.S. [address] [place] [phone] 06/15/2025 2:00 PM CDT [facility] in [address] [phone] Jessica Rousseau M.B.B.S. [address] [place] [phone] 06/24/2025 12:30 PM CDT Clinical Communication Virtual Review in [address] [phone] 06/25/2025 8:10 AM CDT Lab Department of Laboratory Medicine and Pathology, [facility], in [address] [phone] Tessa Jesus, KARON, C.N.P., D.N.P. [address] [place] [phone] 06/25/2025 9:00 AM CDT [facility] in [place], [place] [address] [place] [address] Tessa Jesus APRN, C.N.P., D.N.P. [address] [place] [phone] 06/25/2025 9:30 AM CDT Nurse Only [facility] Transplantation and Clinical Regeneration in [place], [place] [address] [place] [phone] Tessa Jesus APRN, C.N.P., D.N.P. [address] [place] [phone] 06/25/2025 10:30 AM CDT Office Visit [facility] Transplantation and Clinical Regeneration in [place], [place] [address] [place] [phone] Jessica Rousseau M.B.B.SKatalina [address] [place] [phone] 06/25/2025 12:00 PM CDT Appointment Department of Radiology, [facility], in [place], [place] [address] [place] [phone] Arlen James APRN, C.N.P., D.N.P. [address] [place] [phone] 06/25/2025 12:40 PM CDT Appointment Department of Cardiovascular Diseases in [place], [place] [address] [place] [phone] Analia Carter APRN, C.N.P. [address] [place] [phone] Discharge Disposition: Home or Self Care 06/26/2025 10:00 AM CDT Telemedicine Department of Palliative Care in [place], [place] [address] [place] [address] Isabel Sellers M.D. [address] [place] [phone] Debbie Shay M.D. [address] [place] [phone] 08/12/2025 10:40 AM CDT Nurse Only Section of Infectious Diseases in [place], [place] [address] [place] [phone] Jessica Rousseau M.B.B.S. [address] [place] [phone] documented as of this encounter Visit Diagnoses Not on filedocumented in this encounter Additional Health Concerns Infection Onset Date Last Indicated Resolved Time COVID19 Pending 04/20/2020 04/20/2020 04/23/2020 2 :28 AM CDT COVID19 Pending 07/07/2020 07/07/2020 07/07/2020 7 :12 PM CDT COVID19 Pending 03/15/2021 03/15/2021 03/16/2021 1 1:39 AM CDT COVID19 01/07/2023 01/07/2023 01/27/2023 5:15 AM AUTOMOTIVE EXHAUST EMISSIONS TECHNICIAN Protective Environment 03/02/2023 03/02/2023 COVID19 Pending 12/04/2024 12/04/2024 12/04/2024 1 0:20 AM AUTOMOTIVE EXHAUST EMISSIONS TECHNICIAN documented as of this encounter Care Teams Wire Mesh Filter Fabricator Relationship Specialty Start Date End Date Renzo Andres M.D. [address] [place] [address] [place] [phone] PCP - General Family Medicine 04/25/23 documented as of this encounter
--- OUTSIDE RECORDS SUMMARY | 2025-06-14 18:18 | XMS_ITS | Encounter Summary ---
Author Organization [facility] Address [address] [place] [address] Care Team Providers Care Television Maintenance Man Name Role Phone Renzo Andres M.D. Primary Care Provider Encounter Details Date Type Department Care Team (Late st Contact Info) Description 07/04/2006 Historical Ophthalmology RST OPH Fercho Jeronimo M.D. Social History Tobacco Use Types Packs/Day Years Used Date Smoking Tobacco: Never Assessed Comments Unknown Sex and Gender Information Value Date Recorded Sex Assigned at Female 12/26/2018 8:37 PM WINDOWS DEPLOYMENT TECHNICIAN Legal Sex Female 2:43 PM WINDOWS DEPLOYMENT TECHNICIAN Gender Identity Female 12/26/2018 8:37 PM WINDOWS DEPLOYMENT TECHNICIAN Sexual Orientation Choose not to disclose [...] both eyes. No eye complaints. Wearing glasses time piece repairer. No diplopia. Would like to get contacts. [...] both eyes CDM Reports - EYEGEN Id: [id number] Status: Fnl documented in this encounter Plan of Treatment Upcoming Encounters Date Type Department Care Team (Latest Contact Info) Description 06/12/2025 11:59 PM CDT Anesthesia Event Outpatient Procedure Center in [address] [phone] Kristin Friend M.D. [address] [place] [phone] 06/15/2025 9:45 AM CDT Hospital Encounter Outpatient Procedure Center in [address] [address] Jessica Rousseau M.B.B.S. [address] [place] [phone] 06/15/2025 2:00 PM CDT Office Visit Pedro Aravind [facility] for Trans[facility] and Clinical Regeneration in [address] [address] Jessica Rousseau M.B.B.S. [address] [place] [phone] 06/24/2025 12:30 PM CDT Clinical Communication Virtual Review in [place], [place] 200 [place] [address] 06/25/2025 8:10 AM CDT Lab Department of Laboratory Medicine and Pathology, [facility], in [place], [place] [address] [place] [phone] Tessa Jesus APRN, C.N.P., D.N.P. [address] [place] [address] 06/25/2025 9:00 AM CDT Office [facility] in [place], [place] [address] [place] [address] Tessa Jesus APRN, C.N.PKatalina, D.N.P. [address] [place] [phone] 06/25/2025 9:30 AM CDT Nurse Only [facility] Transplantation and Clinical Regeneration in [place], [place] [address] [place] [address] Tessa Jesus APRN, C.N.P., D.N.P. [address] [place] [phone] 06/25/2025 10:30 AM CDT Office Visit [facility] Transplantation and Clinical Regeneration in [place], [place] [address] [place] [address] Jessica Rousseau M.B.B.SKatalina [address] [place] [phone] 06/25/2025 12:00 PM CDT Appointment Department of Radiology, [facility], in [place], [place] [address] [place] [address] Arlen James APRN, C.N.P., D.N.P. [address] [place] [phone] 06/25/2025 12:40 PM CDT Appointment Department of Cardiovascular Diseases in [place], [place] [address] [place] [address] Analia Carter, KARON, C.N.P. [address] [place] [phone] Discharge Disposition: Home or Self Care 06/26/2025 10:00 AM CDT Telemedicine Department of Palliative Care in [place], [place] [address] [place] [phone] Isabel Sellers M.D. [address] [place] [phone] Debbie Shay M.D. [address] [place] [phone] 08/12/2025 10:40 AM CDT Nurse Only Section of Infectious Diseases in [place], [place] [address] [place] [phone] Jessica Rousseau M.B.B.S. [address] [place] [phone] documented as of this encounter Visit Diagnoses Not on filedocumented in this encounter Additional Health Concerns Infection Onset Date Last Indicated Resolved Time COVID19 Pending 04/20/2020 04/20/2020 04/23/2020 2 :28 AM CDT COVID19 Pending 07/07/2020 07/07/2020 07/07/2020 7 :12 PM CDT COVID19 Pending 03/15/2021 03/15/2021 03/16/2021 1 1:39 AM CDT COVID19 01/07/2023 01/07/2023 01/27/2023 5:15 AM WINDOWS DEPLOYMENT TECHNICIAN Protective Environment 03/02/2023 03/02/2023 COVID19 Pending 12/04/2024 12/04/2024 12/04/2024 1 0:20 AM WINDOWS DEPLOYMENT TECHNICIAN documented as of this encounter Care Teams Television Maintenance Man Relationship Specialty Start Date End Date Renzo Andres M.D. [address] [place] [phone] PCP - General Family Medicine 04/25/23 documented as of this encounter
--- OUTSIDE RECORDS SUMMARY | 2025-06-14 18:18 | XMS_ITS | Clinical Summary ---
Author Organization [facility] Address [address] [place] [id number] Care Team Providers Care Home Insurance Agent Name Role Phone System, Provider Not In [...] Description 07/07/2025 2:40 PM CDT Office Visit [address] [place] [phone] Madeleine Roberts MD [address] [place] [address] [place] [address] [phone] Health Maintenance Due Date Last Done Comments [...] HEPATITIS C SCREENING Completed 08/02/2023, 019 Insurance [facility] MED[facility] Care Teams Home Insurance Agent Relationship Specialty Start Date End Date System, Provider Not In PCP - General Clinic 06/08/22
--- OUTSIDE RECORDS SUMMARY | 2025-06-14 18:19 | XMS_ITS | Encounter Summary ---
Author Organization [facility] Address [address] [place] [address] Care Team Providers Care Documentation Spec Name Role Phone Renzo Andres M.D. Primary Care Provider Encounter Details Date Type Department Care Team (Late st Contact Info) Description 06/08/2025 Orders Only [facility] Ninth Floor [address] [place] [address] Analia Carter, ADDICTION COUNSELOR, C.N.P. [address] [place] [phone] Social History Tobacco Use Types Packs/Day Years [...] things needed for daily living? No 06/12/2025 [facility] Utilities Answer Date Recorded In the past 12 months has th e electric, gas, oil, or water company threatened to shut off services in your home? No 06/12/2025 Depression Answer Date Recor ded PHQ-9 Total Score (max 27) 2 12/10 Housing Stability Answer Date Recorded What is your living situation today? I have a [facility] place to live 06/12/2025 Education Answer Date Recorded What is the highest level of school you have completed or the highest degree you have received? Some college, no degree 04/24/2019 Comments No Sex and Gender Information Value Date Recorded Sex Assigned at Female 12/26/2018 8:37 PM MEDICAL COST CONSULTANT Legal Sex Female 2:43 PM MEDICAL COST CONSULTANT Gender Identity Female 12/26/2018 8:37 PM MEDICAL COST CONSULTANT Sexual Orientation Choose not to disclose 2020 3:46 PM CDT documented as of this encounter Plan of Treatment Upcoming Encounters Date Type Department Care Team (Latest Contact Info) Description 06/12/2025 11:59 PM CDT Anesthesia Event Outpatient Procedure Center in [place], [place] 200 [place] [phone] Kristin Friend M.D. 200 [place] [phone] 06/15/2025 9:45 AM CDT Hospital Encounter Outpatient Procedure Center in [place], [place] [address] [place] [phone] Jessica Rousseau M.B.B.S. [address] [place] [phone] 06/15/2025 2:00 PM CDT [facility] [place], [place] [address] [place] [phone] Jessica Rousseau M.B.B.S. [address] [place] [phone] 06/24/2025 12:30 PM CDT Clinical Communication Virtual Review in [place], [place] 200 [place] [phone] 06/25/2025 8:10 AM CDT Lab Department of Laboratory Medicine and Pathology, [facility], in [place], [place] [address] [place] [phone] Tessa Jesus APRN, C.N.P., D.N.P. [address] [place] [phone] 06/25/2025 9:00 AM CDT [facility] [place], [place] [address] [place] [phone] Tessa Jesus APRN, C.N.P., D.N.P. [address] [place] [phone] 06/25/2025 9:30 AM CDT Nurse Only [facility] in [place], [place] [address] [place] [phone] Tessa Jesus APRN, C.N.P., D.N.P. [address] [place] [phone] 06/25/2025 10:30 AM CDT Office Visit [facility] in [place], [place] [address] [place] [address] Jessica Rousseau M.B.B.SKatalina [address] [place] [phone] 06/25/2025 12:00 PM CDT Appointment Department of Radiology, [facility], in [place], [place] [address] [place] [phone] Arlen James APRN, C.N.P., D.N.P. [address] [place] [phone] 06/25/2025 12:40 PM CDT Appointment Department of Cardiovascular Diseases in [place], [place] [address] [place] [phone] Analia Carter APRN, C.N.P. [address] [place] [phone] Discharge Disposition: Home or Self Care 06/26/2025 10:00 AM CDT Telemedicine Department of Palliative Care in [place], [place] [address] [place] [phone] Isabel Sellers M.D. [address] [place] [phone] Debbie Shay M.D. [address] [place] [phone] 08/12/2025 10:40 AM CDT Nurse Only Section of Infectious Diseases in [place], [place] [address] [place] [address] Jessica Rousseau M.B.BKatalinaS. [address] [place] [phone] documented as of this encounter Visit Diagnoses Not on filedocumented in this encounter Additional Health Concerns Infection Onset Date Last Indicated Resolved Time Protective Environment 03/02/2023 03/02/2023 Assessment Noted Time PHQ-9 Depression Total Score: 2 12/10/19 25 2:46 PM MEDICAL COST CONSULTANT documented as of this encounter Care Teams Documentation Spec Relationship Specialty Start Date End Date Renzo Andres M.D. [address] [place] [phone] PCP - General Family Medicine 04/25/23 documented as of this encounter
--- OUTSIDE RECORDS SUMMARY | 2025-06-14 18:19 | XMS_ITS | Encounter Summary ---
Author Organization [facility] Address [address] [place] [address] Care Team Providers Care Stock Raiser Name Role Phone Renzo Andres M.D. Primary Care Provider Reason for Referral * Outpatient (Routine) - Closed Specialty Diagnoses / Procedures Referred By Estefania acosta Referred To Contact Diagnoses Transplant Stem Cell (HCC) Pain Pleuritic Chest Procedures ECG 12 Lead MD EKG 12 LEAD W I&R Analia Carter APRN, C.N.P. [address] [place] [phone] Phone: tel: fax: [facility] Referral ID Status Reason Start Date Expiration Date Visits Re quested Visits Authorized [id number] Closed 06/06/2025 09/06/2026 1 1 Encounter Details Date Type Department Care Team (Late st Contact Info) Description 06/06/2025 Orders Only [facility], Ninth Floor [address] [place] [phone] Analia Carter APRN, C.N.P. [address] [place] [phone] Transplant Stem Cell (HCC) (Primary Dx); Pain Pleuritic Chest Social History Tobacco Use Types Packs/Day Years Used Date Smoking Tobacco: Never Smokeless Tobacco: Never Alcohol Use Standard Drinks/Week Comments Yes 0 (1 standard drink = 0.6 oz pur e alcohol) social [facility] Utilities Answer Date Recorded In the past 12 months has e [employer], gas, oil, or water [employer] threatened to shut off services in your [...] a [facility] place [facility] live 05/28/2025 Education Answer Date Recorded What is the highest level of school you have completed or the highest degree you have received? 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 [address] [place] [phone] 06/15/2025 9:45 AM CDT Hospital Encounter Outpatient Procedure Center in [address] [phone] Jessica Rousseau M.B.B.S. [address] [place] [phone] 06/15/2025 2:00 PM CDT [facility] in [address] [phone] Jessica Rousseau M.B.B.S. [address] [place] [phone] 06/24/2025 12:30 PM CDT Clinical Communication Virtual Review in [address] [phone] 06/25/2025 8:10 AM CDT Lab Department of Laboratory Medicine and Pathology, [facility], in [address] [phone] Tessa Jesus, KARON, C.N.P., D.N.P. [address] [place] [phone] 06/25/2025 9:00 AM CDT Office [facility] in [place], [place] [address] [place] [address] Tessa Jesus APRN, C.N.P., D.N.P. [address] [place] [phone] 06/25/2025 9:30 AM CDT Nurse Only [facility] Transplantation and Clinical Regeneration in [place], [place] [address] [place] [address] Tessa Jesus APRN, C.N.P., D.N.P. [address] [place] [phone] 06/25/2025 10:30 AM CDT Office Visit [facility] in [place], [place] [address] [place] [address] Jessica Rousseau M.B.B.S. [address] [place] [phone] 06/25/2025 12:00 PM CDT Appointment Department of Radiology, [facility], in [place], [place] [address] [place] [phone] Arlen James APRN, C.N.P., D.N.P. [address] [place] [phone] 06/25/2025 12:40 PM CDT Appointment Department of Cardiovascular Diseases in [place], [place] [address] [place] [address] Analia Carter APRN, C.N.P. [address] [place] [phone] Discharge Disposition: Home or Self Care 06/26/2025 10:00 AM CDT Telemedicine Department of Palliative Care in [place], [place] [address] [place] [address] Isabel Sellers M.D. [address] [place] [phone] Debbie Shay M.D. [address] [place] [phone] 08/12/2025 10:40 AM CDT Nurse Only Section of Infectious Diseases in [place], [place] [address] [place] [phone] Jessica Rousseau M.B.B.S. [address] [place] [phone] documented as of this encounter Results * ECG 12 Lead (06/07/2025 12:15 PM CDT) Ventricular Rate ECG/Min 86 BPM MUSE MD Interval 172 ms MUSE QRSD Interval 78 ms MUSE QT Interval 350 ms MUSE QTC Interval 418 ms MUSE P [place] 55 degrees MUSE R [place] 11 degrees MUSE T Wave [place] 38 degrees MUSE 06/07/2025 12:1 5 PM CDT 06/07/2025 12:17 PM CDT Impressions MUSE - 06/07/2025 12:17 PM CDT Normal sinus rhythm Normal ECG When compared with ECG of 05-Nov-2024 14:39, No significant change was found Reviewed by LEONEL Alamo Narrative Procedure Note Rigo Escobar M.D. - 06/07/2025 IMPRESSION: Normal sinus rhythm Normal ECG When compared with ECG of 18-Dec-2024 14:39, No significant change was found Reviewed by LEONEL Alamo us Analia Gamez APRN, C.N.P. ECG ORDER JANES Final Result Performing Organization Address City/[facility] Co de Phone Number MUSE NA * [...] BLOOD ADD-ON Final Result Performing Organization Address [facility] [place] [address], [facility] [place] [address] * NT-Pro B-Type Natriuretic Peptide (BNP) (06/07/2025 [...] BLOOD ADD-ON Final Result Performing Organization Address City/[facility]/[place] [address] * Troponin T, 5th Generation (06/07/2025 12:12 PM CDT) [facility] Troponin T, 5th gen <6 <=10 ng/L 06/07/2025 1:04 PM CDT DT Blood (Blood, Venous) 06/07/2025 12:12 PM CDT 06/07/2025 12:19 PM CDT Analia Gamez APRN, C.N.P. LAB BLOOD ADD-ON Final Result Performing Organization Address City/[facility] Co de Phone Number [facility] [address] 200 [place] [address] * Magnesium (06/07/2025 12:12 PM CDT) [facility] Magnesium, S 2.2 1.7 - 2.3 mg/dL 06/07/2025 2:36 PM CDT DT Blood (Blood, Venous) 06/07/2025 12:12 PM CDT 06/07/2025 12:19 PM CDT Analia Gamez APRN, C.N.P. LAB BLOOD ADD-ON Final Result Performing Organization Address City/[facility]/[place] [address] * (ABNORMAL) Comprehensive Metabolic Panel (06/07/2025 12:12 PM CDT) [facility] Potassium, S 4.3 3.6 - 5.2 [...] APRN, C.N.P. LAB BLOOD ADD-ON Final Result [facility] [address] [place] [address], [facility] [address] [place] [address] * (ABNORMAL) CBC no call back, reflex T/S HGB <8 (06/07/2025 12:12 PM CDT) Pathologist [facility] Hemoglobin 11.5(L) 11.6 - 15.0 g/dL 06/07/2025 [...] LAB BLOOD NON ADD-ON Final Result [facility] [address] [place] [address], [place] D[facility] [address] [place] [address] [facility] [address] [place] [address] documented in this encounter Visit Diagnoses Diagnosis Transplant Stem Cell (HCC)- Primary Pain Pleuritic Chest 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 [address] [place] [address] [place] [phone] PCP - General Family Medicine 04/25/23 documented as of this encounter
--- OUTSIDE RECORDS SUMMARY | 2025-06-14 18:19 | XMS_ITS | Encounter Summary ---
Author Organization [facility] Address [address] [place] [address] Care Team Providers Care Exceptional Student Education Aide Name Role Phone Renzo Andres M.D. 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 [address] [place] [address] Phone: tel: fax: [facility] Referral ID Status Reason Start Date Expiration Date Visits Re quested Visits Authorized [id number] Closed 06/05/2025 09/05/2026 1 1 Reason for Visit * Reason Onset Date Comments Phone Contact 06/05/2025 CT Results Encounter Details Date Type Department Care Team (Latest Contact Info) Description 06/05/2025 Clinical Communication Pedro [facility] in [place], [place] [address] [place] [address] Jessica Rousseau M.B.B.S. [address] [place] [address] Phone Contact (CT Results) Social History Tobacco Use Types Packs/Day Years Used Date Smoking Tobacco: Never Smokeless Tobacco: Never Alcohol Use Standard Drinks/Week Comments Yes 0 (1 standard drink = 0.6 oz pur e alcohol) social [facility] Utilities Answer Date Recorded In the past 12 months has e [employer], gas, oil, or water [employer] threatened to shut off services in your [...] a [facility] place to live 05/28/2025 Education Answer Date Recorded What is the highest level of school you have completed or the highest degree you have received? Some college, no degree 04/24/2019 Comments No Sex and Gender Information Value Date Recorded Sex Assigned at Female 12/26/2018 8:37 PM DIRECTOR MORTGAGE Legal Sex Female 2:43 PM DIRECTOR MORTGAGE Gender Identity Female 12/26/2018 8:37 PM DIRECTOR MORTGAGE Sexual Orientation Choose not to disclose 2020 3:46 PM CDT documented as of this encounter Plan of Treatment Upcoming Encounters Date Type Department Care Team (Latest Contact Info) Description 06/12/2025 11:59 PM CDT Anesthesia Event Outpatient Procedure Center in [address] [address] Kristin Friend M.D. [address] [place] [phone] 06/15/2025 9:45 AM CDT Hospital Encounter Outpatient Procedure Center in [address] [address] Jessica Rousseau M.B.B.S. [address] [place] [phone] 06/15/2025 2:00 PM CDT Office Visit Pedro sanchez [facility]eneration in [address] [phone] Jessica Rousseau M.B.B.S. [address] [place] [phone] 06/24/2025 12:30 PM CDT Clinical Communication Virtual Review in [place], [place] 200 [place] [address] 06/25/2025 8:10 AM CDT Lab Department of Laboratory Medicine and Pathology, [facility], in [place], [place] [address] [place] [phone] Tessa Jesus, KARON, C.N.PKatalina, D.N.P. [address] [place] [address] 06/25/2025 9:00 AM CDT Office Visit [facility] in [place], [place] [address] [place] [address] Tessa Jesus APRN, C.N.PKatalina, D.N.P. [address] [place] [phone] 06/25/2025 9:30 AM CDT Nurse Only [facility] Transplantation and Clinical Regeneration in [place], [place] [address] [place] [address] Tessa Jesus APRN, C.N.PKatalina, D.N.P. [address] [place] [phone] 06/25/2025 10:30 AM CDT Office Visit [facility] Transplantation and Clinical Regeneration in [place], [place] [address] [place] [address] Jessica Rousseau M.B.B.SKatalina [address] [place] [phone] 06/25/2025 12:00 PM CDT Appointment Department of Radiology, [facility], in [place], [place] [address] [place] [address] Arlen James APRN, C.N.P., D.N.P. [address] [place] [phone] 06/25/2025 12:40 PM CDT Appointment Department of Cardiovascular Diseases in [place], [place] [address] [place] [address] Analia Carter, KARON, C.N.P. [address] [place] [phone] Discharge Disposition: Home or Self Care 06/26/2025 10:00 AM CDT Telemedicine Department of Palliative Care in [place], [place] [address] [place] [phone] Isabel Sellers M.D. [address] [place] [phone] Debbie Shay M.D. [address] [place] [phone] 08/12/2025 10:40 AM CDT Nurse Only Section of Infectious Diseases in [place], [place] [address] [place] [phone] Jessica Rousseau M.B.B.S. 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 [address] [place] [phone] PCP - General Family Medicine 04/25/23 documented as of this encounter
--- OUTSIDE RECORDS SUMMARY | 2025-06-14 18:19 | XMS_ITS | Encounter Summary ---
Author Organization [facility] Address [address] [place] [address] Care Team Providers Care Qc Lab Technician Name Role Phone Renzo Andres M.D. Primary Care Provider [phone] Reason for Referral * Specialty Diagnoses / Procedures Referred By Estefania acosta Referred To Contact Diagnoses Transplant Stem Cell (HCC) [facility] [address] [place] [address] Phone: tel: [facility] Referral ID Status Reason Start Date Expiration Date Visits Re quested Visits Authorized Scheduling Instructions Please schedule on 06/07 at noon BW,Exam Encounter Details Date Type Department Care Team (Late st Contact Info) Description 06/06/2025 Orders Only [facility], [facility], [facility], Ninth Floor [address] [place] [address] Romina Garsia, R.N. Transplant Stem Cell (HCC) (Primary Dx) Social History Tobacco Use Types Packs/Day Years Used Date Smoking Tobacco: Never Smokeless Tobacco: Never Alcohol Use Standard Drinks/Week Comments Yes 0 (1 standard drink = 0.6 oz pur e alcohol) social [facility] Utilities Answer Date Recorded In the past [...] your living situation today? I have a [facility] place to live 05/28/2025 Education Answer Date Recorded What is the highest level of school you have completed or the highest degree you have received? Some college, no degree 04/24/2019 Comments No Sex and Gender Information Value Date Recorded Sex Assigned at Female 12/26/2018 8:37 PM INVENTORY CLERK Legal Sex Female 2:43 PM INVENTORY CLERK Gender Identity Female 12/26/2018 8:37 PM INVENTORY CLERK Sexual Orientation Choose not to disclose 2020 3:46 PM CDT documented as of this encounter Plan of Treatment Upcoming Encounters Date Type Department Care Team (Latest Contact Info) Description 06/12/2025 11:59 PM CDT Anesthesia Event Outpatient Procedure Center in [place], [place] [address] [place] [phone] Kristin Friend M.D. [address] [place] [phone] 06/15/2025 9:45 AM CDT Hospital Encounter Outpatient Procedure Center in [place], [place] [address] [place] [phone] Jessica Rousseau M.B.B.S. [address] [place] [phone] 06/15/2025 2:00 PM CDT [facility] [place], [place] [address] [place] [phone] Jessica Rousseau M.B.B.S. [address] [place] [phone] 06/24/2025 12:30 PM CDT Clinical Communication Virtual Review in [place], [place] 200 [place] [phone] 06/25/2025 8:10 AM CDT Lab Department of Laboratory Medicine and Pathology, [facility], in [place], [place] [address] [place] [phone] Tessa Jesus APRN, C.N.P., D.N.P. [address] [place] [phone] 06/25/2025 9:00 AM CDT [facility] in [place], [place] [address] [place] [phone] Tessa Jesus APRN, C.N.P., D.N.P. [address] [place] [phone] 06/25/2025 9:30 AM CDT Nurse Only [facility] in [place], [place] [address] [place] [address] Tessa Jesus APRN, C.N.P., D.N.P. [address] [place] [phone] 06/25/2025 10:30 AM CDT Office Visit [facility] Transplantation and Clinical Regeneration in [place], [place] [address] [place] [phone] Jessica Rousseau M.B.BKatalinaSKatalina [address] [place] [phone] 06/25/2025 12:00 PM CDT Appointment Department of Radiology, [facility], in [place], [place] [address] [place] [address] Arlen James APRN, C.N.P., D.N.P. [address] [place] [phone] 06/25/2025 12:40 PM CDT Appointment Department of Cardiovascular Diseases in [place], [place] [address] [place] [phone] Analia Carter APRN, C.N.P. [address] [place] [phone] Discharge Disposition: Home or Self Care 06/26/2025 10:00 AM CDT Telemedicine Department of Palliative Care in [place], [place] [address] [place] [address] Isabel Sellers M.D. [address] [place] [address] Debbie Shay M.D. [address] [place] [phone] 08/12/2025 10:40 AM CDT Nurse Only Section of Infectious Diseases in [place], [place] 200 [place] [phone] Jessica Rousseau M.B.BKatalinaS. [address] [place] [phone] Scheduled Referrals Name Type Priority Associated Diagnoses Order Schedule Hydration Infusion Therapy; Outpatient Referral Routine Transplant Stem Cell (HCC) 1 Occurrences starting 06/06/2025 until 09/06/2026 documented as of this encounter Visit Diagnoses Diagnosis Transplant Stem Cell (HCC)- Primary documented in this encounter Additional Health Concerns Infection Onset Date Last Indicated Resolved Time Protective Environment 03/02/2023 03/02/2023 Assessment Noted Time PHQ-9 Depression Total Score: 2 12/10/19 25 2:46 PM INVENTORY CLERK documented as of this encounter Care Teams Qc Lab Technician Relationship Specialty Start Date End Date Renzo Andres M.D. [address] [place] [phone] PCP - General Family Medicine 04/25/23 documented as of this encounter
--- OUTSIDE RECORDS SUMMARY | 2025-06-14 18:19 | XMS_ITS | Encounter Summary ---
Author Organization [facility] Address [address] [place] [address] Care Team Providers Care Agency Sales Representative Name Role Phone Renzo Andres M.D. Primary Care Provider Encounter Details Date Type Department Care Team (Late st Contact Info) Description 06/05/2025 Documentation [facility] in [place], [place] [address] [place] [phone] Jessica Avila APRN, C.N.P., M.S.N. [address] [place] [phone] Social History Tobacco Use Types Packs/Day Years Used Date Smoking Tobacco: Never Smokeless Tobacco: Never Alcohol Use Standard Drinks/Week Comments Yes 0 (1 standard drink = 0.6 oz pur e alcohol) social [facility] Utilities Answer Date Recorded In the past 12 months has e [employer], gas, oil, or water company threatened to [...] your living situation today? I have a [facility] place to live 05/28/2025 Education Answer Date Recorded What is the highest level of school you have completed or the highest degree you have received? Some college, no degree 04/24/2019 Comments No Sex and Gender Information Value Date Recorded Sex Assigned at Female 12/26/2018 8:37 PM SOA INTEGRATION DEVELOPER Legal Sex Female 2:43 PM SOA INTEGRATION DEVELOPER Gender Identity Female 12/26/2018 8:37 PM SOA INTEGRATION DEVELOPER Sexual Orientation Choose not to disclose 2020 3:46 PM CDT documented as of this encounter Progress Notes * Jessica Avila, KARON, C.N.P., M.S.N. - 06/05/2025 2:30 PM CDT Reviewed results of the chest CT done at the local facility. No evidence of PE Noted mild cardiac enlargement. Also noted ground glass opacities in the lower lobes reflect an element of edema/atypical infection with or without associated atelectasis. No significant pleural fluid accumulation. Discussed findings with the patient. Unfortunately she continues with intermittent chest pain ( midchest) and was evaluated again at the local ED last night. I believe this is her third visit to ED in the week. Cardiac work up was so far negative. The symptoms are not consistent with pericarditis. Pain started after initiation of Prednisone and increased after EGD on 06/01 which point toward GI etiology/acid reflux rather than cardiac. She will continue on high doses on Protonix and will take TUMS as needed. She has already a pain patch on. Pt was instructed to call BMT service if there is any acute change in her condition and if the caseof persistent/worsening chest pain she will seek medical attention in ED documented in this encounter Plan of Treatment Upcoming Encounters Date Type Department Care Team (Latest Contact Info) Description 06/12/2025 11:59 PM CDT Anesthesia Event Outpatient Procedure Center in [place], [place] [address] [place] [phone] Kristin Friend M.D. [address] [place] [phone] 06/15/2025 9:45 AM CDT Hospital Encounter Outpatient Procedure Center in [place], [place] [address] [place] [phone] Jessica Rousseau M.B.B.S. [address] [place] [phone] 06/15/2025 2:00 PM CDT [facility] in [place], [place] [address] [place] [phone] Jessica Rousseau M.B.B.S. [address] [place] [phone] 06/24/2025 12:30 PM CDT Clinical Communication Virtual Review in [place], [place] [address] [place] [phone] 06/25/2025 8:10 AM CDT Lab Department of Laboratory Medicine and Pathology, [facility], in [place], [place] [address] [place] [phone] Tessa Jesus APRN, C.N.P., D.N.P. [address] [place] [phone] 06/25/2025 9:00 AM CDT Office Visit Pedro [facility] for Transplantation and Clinical Regeneration in [place], [place] [address] [place] [phone] Tessa Jesus APRN, C.N.PKatalina, D.N.P. [address] [place] [phone] 06/25/2025 9:30 AM CDT Nurse Only [facility] in [place], [place] [address] [place] [phone] Tessa Jesus APRN, C.N.P., D.N.P. [address] [place] [phone] 06/25/2025 10:30 AM CDT Office Visit Pedro Nazario [facility] for Transplantation and Clinical Regeneration in [place], [place] [address] [place] [phone] Jessica Rousseau M.B.BKatalinaSKatalina [address] [place] [phone] 06/25/2025 12:00 PM CDT Appointment Department of Radiology, [facility], in [place], [place] [address] [place] [address] Arlen James APRN, C.N.P., D.N.P. [address] [place] [phone] 06/25/2025 12:40 PM CDT Appointment Department of Cardiovascular Diseases in [place], [place] [address] [place] [phone] Analia Carter APRN, C.N.P. [address] [place] [phone] Discharge Disposition: Home or Self Care 06/26/2025 10:00 AM CDT Telemedicine Department of Palliative Care in [place], [place] [address] [place] [phone] Isabel Sellers M.D. [address] [place] [phone] Debbie Shay M.D. [address] [place] [phone] 08/12/2025 10:40 AM CDT Nurse Only Section of Infectious Diseases in [address] [phone] Jessica Rousseau M.B.B.S. [address] [place] [phone] documented as of this encounter Visit Diagnoses Not on filedocumented in this encounter Additional Health Concerns Infection Onset Date Last Indicated Resolved Time Protective Environment 03/02/2023 03/02/2023 Assessment Noted Time PHQ-9 Depression Total Score: 2 12/10/19 25 2:46 PM SOA INTEGRATION DEVELOPER documented as of this encounter Care Teams Agency Sales Representative Relationship Specialty Start Date End Date Renzo Andres M.D. [address] [place] [phone] PCP - General Family Medicine 04/25/23 documented as of this encounter
--- OUTSIDE RECORDS SUMMARY | 2025-06-14 18:19 | XMS_ITS | Encounter Summary ---
Author Organization [facility] Address [address] [place] [address] Care Team Providers Care Patient Coordinator Front Desk Name Role Phone Renzo Andres M.D. Primary Care Provider Reason for Visit * Reason Onset Date Comments Phone Contact 04/01/2025 Encounter Details Date Type Department Care Team (Latest Contact Info) Description 04/01/2025 Clinical Communication [facility] in [place], [place] [address] [place] [address] Jessica Rousseau M.B.B.S. [address] [place] [phone] Phone Contact Social History Tobacco Use Types [...] a [facility] place to live 12/19/2024 Education Answer Date Recorded What is the highest level of school you have completed or the highest degree you have received? Some college, no degree 04/24/2019 Comments No Sex and Gender Information Value Date Recorded Sex Assigned at Female 12/26/2018 8:37 PM DEVIL TENDER Legal Sex Female 2:43 PM DEVIL TENDER Gender Identity Female 12/26/2018 8:37 PM DEVIL TENDER Sexual Orientation Choose not to disclose 2020 3:46 PM CDT documented as of this encounter Plan of Treatment Upcoming Encounters Date Type Department Care Team (Latest Contact Info) Description 06/12/2025 11:59 PM CDT Anesthesia Event Outpatient Procedure Center in [place], [place] [address] [place] [address] Kristin Friend M.D. [address] [place] [address] 06/15/2025 9:45 AM CDT Hospital Encounter Outpatient Procedure Center in [place], [place] [address] [place] [phone] Jessica Rousseau M.B.B.S. [address] [place] [phone] 06/15/2025 2:00 PM CDT [facility] in [place], [place] [address] [place] [phone] Jessica Rousseau M.B.B.S. [address] [place] [phone] 06/24/2025 12:30 PM CDT Clinical Communication Virtual Review in [place], [place] 200 [place] [address] 06/25/2025 8:10 AM CDT Lab Department of Laboratory Medicine and Pathology, [facility], in [place], [place] [address] [place] [phone] Tessa Jesus APRN, C.N.P., D.N.P. [address] [place] [phone] 06/25/2025 9:00 AM CDT [facility] in [place], [place] [address] [place] [phone] Tessa Jesus APRN, C.N.P., D.N.P. [address] [place] [phone] 06/25/2025 9:30 AM CDT Nurse Only [facility] in [place], [place] [address] [place] [phone] Tessa Jesus APRN, C.N.P., D.N.P. [address] [place] [phone] 06/25/2025 10:30 AM CDT Office Visit [facility] in [place], [place] [address] [place] [phone] Jessica Rousseau M.B.BKatalinaSKatalina [address] [place] [phone] 06/25/2025 12:00 PM CDT Appointment Department of Radiology, [facility], in [place], [place] [address] [place] [phone] Arlen James APRN, C.N.P., D.N.P. [address] [place] [phone] 06/25/2025 12:40 PM CDT Appointment Department of Cardiovascular Diseases in [place], [place] [address] [place] [phone] Analia Carter APRN, C.N.P. [address] [place] [phone] Discharge Disposition: Home or Self Care 06/26/2025 10:00 AM CDT Telemedicine Department of Palliative Care in [place], [place] [address] [place] [phone] Isabel Sellers M.D. [address] [place] [phone] Debbie Shay M.D. [address] [place] [phone] 08/12/2025 10:40 AM CDT Nurse Only Section of Infectious Diseases in [place], [place] [address] [place] [address] Jessica Rousseau M.B.B.S. [address] [place] [address] documented as of this encounter Visit Diagnoses Not on filedocumented in this encounter Additional Health Concerns Infection Onset Date Last Indicated Resolved Time Protective Environment 03/02/2023 03/02/2023 Assessment Noted Time PHQ-9 Depression Total Score: 2 12/10/19 25 2:46 PM DEVIL TENDER documented as of this encounter Care Teams Patient Coordinator Front Desk Relationship Specialty Start Date End Date Renzo Andres M.D. [address] [place] [phone] PCP - General Family Medicine 04/25/23 documented as of this encounter
--- OUTSIDE RECORDS SUMMARY | 2025-06-14 18:20 | XMS_ITS | Encounter Summary ---
Author Organization [facility] Address [address] [place] [address] Care Team Providers Care Supervisor Cytology Name Role Phone Renzo Andres M.D. Primary Care Provider [phone] Encounter Details Date Type Department Care Team (Latest Contact Info) Description 05/26/2025 Clinical Communication Pedro Nzaario [facility] for Transplantation and Clinical Regeneration in [place], [place] [address] [place] [phone] Jessica Rousseau M.B.B.S. [address] [place] [address] Social History Tobacco Use Types Packs/Day Years [...] your living situation today? I have a [facility] place to live 05/28/2025 Education Answer Date Recorded What is the highest level of school you have completed or the highest degree you have received? Some college, no degree 04/24/2019 Comments No Sex and Gender Information Value Date Recorded Sex Assigned at Female 12/26/2018 8:37 PM CONSULTING BUSINESS DEVELOPER Legal Sex Female 2:43 PM CONSULTING BUSINESS DEVELOPER Gender Identity Female 12/26/2018 8:37 PM CONSULTING BUSINESS DEVELOPER Sexual Orientation Choose not to disclose 2020 3:46 PM CDT documented as of this encounter Miscellaneous Notes * Telephone Encounter - Tara Marin R.N., BMT-CN - 05/28/2025 2:20 PM CDT Information Discussed Called patient and informed her, per Dr. Rousseau, that she will be admitted for workup. She stated she would be to [place] around 330 or 4 PLAN Information/Education: patient/caller [...] CDT Anesthesia Event Outpatient Procedure Center in [place], [place] [address] [place] [phone] Kristin Friend M.D. [address] [place] [phone] 06/15/2025 9:45 AM CDT Hospital Encounter Outpatient Procedure Center in [place], [place] [address] [place] [phone] Jessica Rousseau M.B.B.S. [address] [place] [phone] 06/15/2025 2:00 PM CDT Office Visit Pedro [facility] for Transplantation and Clinical Regeneration in [place], [place] [address] [place] [phone] Jessica Rousseau M.B.B.S. [address] [place] [phone] 06/24/2025 12:30 PM CDT Clinical Communication Virtual Review in [place], [place] 200 [place] [address] 06/25/2025 8:10 AM CDT Lab Department of Laboratory Medicine and Pathology, [facility], in [place], [place] [address] [place] [phone] Tessa Jesus, FROG CATCHER, C.N.P., D.N.P. [address] [place] [phone] 06/25/2025 9:00 AM CDT Office [facility] and Clinical Regeneration in [address] [phone] Tessa Jesus APRN, C.N.P., D.N.P. [address] [place] [phone] 06/25/2025 9:30 AM CDT Nurse Only [facility] Transplantation and Clinical Regeneration in [place], [place] [address] [place] [address] Tessa Jesus APRN, C.N.P., D.N.P. [address] [place] [phone] 06/25/2025 10:30 AM CDT Office Visit [facility] Transplantation and Clinical Regeneration in [place], [place] [address] [place] [phone] Jessica Rousseau M.B.B.SKatalina [address] [place] [phone] 06/25/2025 12:00 PM CDT Appointment Department of Radiology, [facility], in [place], [place] [address] [place] [phone] Arlen James APRN, C.N.P., D.N.P. [address] [place] [phone] 06/25/2025 12:40 PM CDT Appointment Department of Cardiovascular Diseases in [place], [place] [address] [place] [phone] Analia Carter APRN, C.N.P. [address] [place] [phone] Discharge Disposition: Home or Self Care 06/26/2025 10:00 AM CDT Telemedicine Department of Palliative Care in [place], [place] [address] [place] [phone] Isabel Sellers M.D. [address] [place] [phone] Debbie Shay M.D. [address] [place] [phone] 08/12/2025 10:40 AM CDT Nurse Only Section of Infectious Diseases in [place], [place] [address] [place] [phone] Jessica Rousseau M.B.B.S. [address] [place] [phone] documented as of this encounter Visit Diagnoses Not on filedocumented in this encounter Additional Health Concerns Infection Onset Date Last Indicated Resolved Time Protective Environment 03/02/2023 03/02/2023 Assessment Noted Time PHQ-9 Depression Total Score: 2 12/10/19 25 2:46 PM CONSULTING BUSINESS DEVELOPER documented as of this encounter Care Teams Supervisor Cytology Relationship Specialty Start Date End Date Renzo Andres M.D. [address] [place] [phone] PCP - General Family Medicine 04/25/23 documented as of this encounter
--- OUTSIDE RECORDS SUMMARY | 2025-06-14 18:20 | XMS_ITS | Encounter Summary ---
Author Organization [facility] Address [address] [place] [address] Care Team Providers Care Car Barn Laborer Name Role Phone Renzo Andres M.D. Primary Care Provider Reason for Visit * Reason Onset Date Comments 06/25 appts 05/20/2025 Encounter Details Date Type Department Care Team (Latest Contact Info) Description 05/20/2025 Clinical Communication [facility] [place], [place] [address] [place] [address] Jessica Rousseau M.B.B.S. [address] [place] [address] 06/25 appts Social History Tobacco Use Types Packs/Day Years Used Date Smoking Tobacco: Never Smokeless Tobacco: Never Alcohol Use Standard Drinks/Week Comments Yes 0 (1 standard drink = 0.6 oz pur e alcohol) social [facility] Utilities Answer Date Recorded In the past [...] your living situation today? I have a [facility] place to live 12/19/2024 Education Answer Date Recorded What is the highest level of school you have completed or the highest degree you have received? Some college, no degree 04/24/2019 Comments No Sex and Gender Information Value Date Recorded Sex Assigned at Female 12/26/2018 8:37 PM CONSUMER LOAN PROCESSOR Legal Sex Female 2:43 PM CONSUMER LOAN PROCESSOR Gender Identity Female 12/26/2018 8:37 PM CONSUMER LOAN PROCESSOR Sexual Orientation Choose not to disclose 2020 3:46 PM CDT documented as of this encounter Plan of Treatment Upcoming Encounters Date Type Department Care Team (Latest Contact Info) Description 06/12/2025 11:59 PM CDT Anesthesia Event Outpatient Procedure Center in [place], [place] [address] [place] [address] Kristin Friend M.D. [address] [place] [address] 06/15/2025 9:45 AM CDT Hospital Encounter Outpatient Procedure Center in [place], [place] [address] [place] [phone] Jessica Rousseau M.B.B.S. [address] [place] [phone] 06/15/2025 2:00 PM CDT [facility] in [place], [place] [address] [place] [phone] Jessica Rousseau M.B.B.S. [address] [place] [phone] 06/24/2025 12:30 PM CDT Clinical Communication Virtual Review in [place], [place] 200 [place] [phone] 06/25/2025 8:10 AM CDT Lab Department of Laboratory Medicine and Pathology, [facility], in [place], [place] [address] [place] [phone] Tessa Jesus APRN, C.N.P., D.N.P. [address] [place] [phone] 06/25/2025 9:00 AM CDT Office [facility] in [place], [place] [address] [place] [phone] Tessa Jesus APRN, C.N.P., D.N.P. [address] [place] [phone] 06/25/2025 9:30 AM CDT Nurse Only Pedro sanchez [facility] in [place], [place] [address] [place] [phone] Tessa Jesus APRN, C.N.P., D.N.P. [address] [place] [phone] 06/25/2025 10:30 AM CDT Office [facility] in [place], [place] [address] [place] [address] Jessica Rousseau M.B.B.SKatalina [address] [place] [phone] 06/25/2025 12:00 PM CDT Appointment Department of Radiology, [facility], in [place], [place] [address] [place] [address] Arlen James APRN, C.N.P., D.N.P. [address] [place] [phone] 06/25/2025 12:40 PM CDT Appointment Department of Cardiovascular Diseases in [place], [place] [address] [place] [phone] Analia Carter APRN, C.N.P. [address] [place] [phone] Discharge Disposition: Home or Self Care 06/26/2025 10:00 AM CDT Telemedicine Department of Palliative Care in [place], [place] [address] [place] [phone] Isabel Sellers M.D. [address] [place] [phone] Debbie Shay M.D. [address] [place] [phone] 08/12/2025 10:40 AM CDT Nurse Only Section of Infectious Diseases in [place], [place] [address] [place] [address] Jessica Rousseau M.B.B.S. [address] [place] [address] documented as of this encounter Visit Diagnoses Not on filedocumented in this encounter Additional Health Concerns Infection Onset Date Last Indicated Resolved Time Protective Environment 03/02/2023 03/02/2023 Assessment Noted Time PHQ-9 Depression Total Score: 2 12/10/19 25 2:46 PM CONSUMER LOAN PROCESSOR documented as of this encounter Care Teams Car Barn Laborer Relationship Specialty Start Date End Date Renzo Andres M.D. [address] [place] [phone] PCP - General Family Medicine 04/25/23 documented as of this encounter
--- OUTSIDE RECORDS SUMMARY | 2025-06-14 18:20 | XMS_ITS ---
Author Organization [facility] Address [address] [place] [address] Care Team Providers Care Lining Sewer Name Role Phone Renzo Andres M.D. Primary Care Provider [phone] Active Problems * This document contains information [...] RSV: MMR: Local Lab/Provider: Dr. Ermelinda Pierre [address] [address] Problem Noted Date Diagnosed Date Abdominal Pain 06/12/2025 Nausea And Vomiting 05/28/2025 Pain Neuropathic 04/21/2025 [...] Therapy Complete Tiffani Leroy APRN, C.N.P., D.N.P. Hematology / Oncology Treatment 1 [...] 07/14/2019 imatinib (Gleevec) Therapy Complete Tone Fagan M.B.B.S. 1 of 6 cycles planned Hematology / [...] Therapy Complete Jessica Rousseau M.B.B.S. LEUPROLIDE (LUPRON) 10/25/2021 10/09/2023 No medications scheduled. Therapy Complete Stephen Wallace M.B.B.SKatalina MEDICATION AT INFUSION THERAPY 12/17/2018 03/20/2019 No medications scheduled. Therapy Complete Kristin Fernandez R.N. Infusion Therapy 2 Plan Name Start Date Discontinue Date Treatment Medications Discontinue Reason Plan Provider electrolyte administration 01/16/2025 01/16/2025 No medications scheduled. Therapy Complete Carlee Armas APRN, C.N.PKatalina, D.N.P., M.S.N. electrolyte administration 01/13/2025 01/13/2025 No medications scheduled. Therapy Complete Carlee Armas APRN, C.N.P., D.N.P., M.S.N. pentamidine (NEBUPENT) Inhaled 12/08/2024 12/31/2024 No medications scheduled. Therapy Complete Jessica Rousseau M.B.B.S. LEUPROLIDE (LUPRON) 07/14/2019 07/07/2020 No medic ations scheduled. Therapy Complete Stefan Thapa APRN C.N.P. LEUPROLIDE (LUPRON) AT INFUSION CENTER & LEUPROLIDE (LUPRON) 03/25/2019 06/24/2019 No medications scheduled. Therapy Complete Stefan Thapa APRN C.N.P. Infusion Therapy 3 Plan Name Start Date Discontinue Date Treatment Medications Discontinue Reason Plan Provider electrolyte administration 01/13/2025 01/13/2025 No medications scheduled. Therapy Complete Carlee Armas APRN, C.N.PKatalina, D.N.P., M.S.N. Cellular Therapy * Episode Name Episode Status Transplant/Infusion Date Transplant/Infusion Center Donor Information Acute GVHD Chronic GVHD Contact Allo PBSC Txp Active Day 186 (12/10/24) [facility] UnrelatedMat ch Grade: 8/8HLA DP Match: Permissive Mismatch Latest : Not docume ntedMa x: Not docume nted Latest: Not document edMax: Not document ed Joyce Godoy.B.S. 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
--- OUTSIDE RECORDS SUMMARY | 2025-06-14 18:20 | XMS_ITS | Encounter Summary ---
Author Organization [facility] Address [address] [place] [address] Care Team Providers Care Medical Collector Name Role Phone Renzo Andres M.D. Primary Care Provider [phone] Encounter Details Date Type Department Care Team (Latest Contact Info) Description 12/19/2024 Intake [facility] Social History Tobacco Use Types Packs/Day Years Used Date Smoking Tobacco: Never Smokeless Tobacco: Never Alcohol Use Standard Drinks/Week Comments Yes 0 (1 standard drink = 0.6 oz pur e alcohol) social [facility] Utilities Answer Date Recorded In the past 12 months has [facility] [employer], gas, oil, or water [employer] threatened to shut off services in your [...] your living situation today? I have a [facility] place to live 12/19/2024 Education Answer Date Recorded What is the highest level of school you have completed or the highest degree you have received? Some college, no degree 04/24/2019 Comments No Sex and Gender Information Value Date Recorded Sex Assigned at Female 12/26/2018 8:37 PM FEEDER DRIVER Legal Sex Female 2:43 PM FEEDER DRIVER Gender Identity Female 12/26/2018 8:37 PM FEEDER DRIVER Sexual Orientation Choose not to disclose 2020 3:46 PM CDT documented as of this encounter Plan of Treatment Upcoming Encounters Date Type Department Care Team (Latest Contact Info) Description 06/12/2025 11:59 PM CDT Anesthesia Event Outpatient Procedure Center in [place], [place] [address] [place] [phone] Kristin Friend M.D. [address] [place] [phone] 06/15/2025 9:45 AM CDT Hospital Encounter Outpatient Procedure Center in [place], [place] [address] [place] [phone] Jessica Rousseau M.B.B.S. [address] [place] [phone] 06/15/2025 2:00 PM CDT Office Visit [facility] in [place], [place] [address] [place] [phone] Jessica Rousseau M.B.B.S. [address] [place] [phone] 06/24/2025 12:30 PM CDT Clinical Communication Virtual Review in [place], [place] 200 [place] [address] 06/25/2025 8:10 AM CDT Lab Department of Laboratory Medicine and Pathology, [facility] in [place], [place] [address] [place] [phone] Tessa Jesus APRN, C.N.P., D.N.P. [address] [place] [phone] 06/25/2025 9:00 AM CDT Office Visit [facility] in [place], [place] [address] [place] [phone] Tessa Jesus APRN, C.N.P., D.N.P. [address] [place] [phone] 06/25/2025 9:30 AM CDT Nurse Only [facility] Trans[facility] Clinical Regeneration in [place], [place] [address] [place] [phone] Tessa Jesus APRN, C.N.P., D.N.P. [address] [place] [phone] 06/25/2025 10:30 AM CDT Office Visit [facility] in [place], [place] [address] [place] [phone] Jessica Rousseau M.B.B.S. [address] [place] [phone] 06/25/2025 12:00 PM CDT Appointment Department of Radiology, [facility], in [place], [place] [address] [place] [address] Arlen James APRN, C.N.P., D.N.P. [address] [place] [phone] 06/25/2025 12:40 PM CDT Appointment Department of Cardiovascular Diseases in [place], [place] [address] [place] [phone] Analia Carter APRN, C.N.P. [address] [place] [phone] Discharge Disposition: Home or Self Care 06/26/2025 10:00 AM CDT Telemedicine Department of Palliative Care in [place], [place] [address] [place] [phone] Isabel Sellers M.D. [address] [place] [phone] Debbie Shay M.D. [address] [place] [phone] 08/12/2025 10:40 AM CDT Nurse Only Section of Infectious Diseases in [place], [place] [address] [place] [phone] Jessica Rousseau M.B.B.S. [address] [place] [phone] documented as of this encounter Visit Diagnoses Not on filedocumented in this encounter Additional Health Concerns Infection Onset Date Last Indicated Resolved Time Protective Environment 03/02/2023 03/02/2023 Assessment Noted Time PHQ-9 Depression Total Score: 2 12/10/19 25 2:46 PM FEEDER DRIVER documented as of this encounter Care Teams Medical Collector Relationship Specialty Start Date End Date Renzo Andres M.D. [address] [place] [phone] PCP - General Family Medicine 04/25/23 documented as of this encounter
--- OUTSIDE RECORDS SUMMARY | 2025-06-14 18:20 | XMS_ITS | Encounter Summary ---
Author Organization [facility] Address [address] [place] [address] Care Team Providers Care Defence Force Member Other Ranks Name Role Phone Renzo Andres M.D. 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 [address] [place] [phone] Phone: tel: fax: Referral ID Status Reason Start Date Expiration Date V isits Requested Visits Authorized [id number] Pending Review 1 1 Encounter Details Date Type Department Care Team (Late st Contact Info) Description 06/13/2025 Orders Only [facility], [facility], Ninth Floor [address] [place] [phone] Analia Carter APRN, C.N.P. 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 No 06/12/2025 [facility] Utilities Answer Date Recorded In the past 12 months has e electric, gas, oil, or water company threatened to shut off services in your home? No 06/12/2025 Depression Answer Date Recor ded PHQ-9 Total Score (max 27) 2 12/10 Housing Stability Answer Date Recorded What is your living situation today? I have a [facility] place to live 06/12/2025 Education Answer Date Recorded What is the highest level of school you have completed or the highest degree you have received? Some college, no degree 04/24/2019 Comments No Sex and Gender Information Value Date Recorded Sex Assigned at Female 12/26/2018 8:37 PM VESSEL TRAFFIC OFFICER Legal Sex Female 2:43 PM VESSEL TRAFFIC OFFICER Gender Identity Female 12/26/2018 8:37 PM VESSEL TRAFFIC OFFICER Sexual Orientation Choose not to disclose 2020 3:46 PM CDT documented as of this encounter Plan of Treatment Upcoming Encounters Date Type Department Care Team (Latest Contact Info) Description 06/12/2025 11:59 PM CDT Anesthesia Event Outpatient Procedure Center in [place], [place] [address] [place] [phone] Kristin Friend M.D. [address] [place] [phone] 06/15/2025 9:45 AM CDT Hospital Encounter Outpatient Procedure Center in [address] [phone] Jessica Rousseau M.B.B.S. [address] [place] [phone] 06/15/2025 2:00 PM CDT Office Visit Pedro Aravind [facility] for Transplantation and Clinical Regeneration in [address] [phone] Jessica Rousseau M.B.B.S. [address] [place] [phone] 06/24/2025 12:30 PM CDT Clinical Communication Virtual Review in [place], [place] 200 [place] [phone] 06/25/2025 8:10 AM CDT Lab Department of Laboratory Medicine and Pathology, [facility], in [address] [phone] Tessa Jesus, KARON, C.N.P., D.N.P. [address] [place] [phone] 06/25/2025 9:00 AM CDT [facility] in [place], [place] [address] [place] [address] Tessa Jesus APRN, C.N.P., D.N.P. [address] [place] [phone] 06/25/2025 9:30 AM CDT Nurse Only [facility] in [place], [place] [address] [place] [address] Tessa Jesus APRN, C.N.P., D.N.P. [address] [place] [phone] 06/25/2025 10:30 AM CDT Office Visit [facility] in [place], [place] [address] [place] [phone] Jessica Rousseau M.B.B.S. [address] [place] [phone] 06/25/2025 12:00 PM CDT Appointment Department of Radiology, [facility], in [place], [place] [address] [place] [phone] Arlen James APRN, C.N.P., D.N.P. [address] [place] [phone] 06/25/2025 12:40 PM CDT Appointment Department of Cardiovascular Diseases in [place], [place] [address] [place] [phone] Analia Carter APRN, C.N.P. [address] [place] [phone] Discharge Disposition: Home or Self Care 06/26/2025 10:00 AM CDT Telemedicine Department of Palliative Care in [place], [place] [address] [place] [phone] Isabel Sellers M.D. [address] [place] [phone] Debbie Shay M.D. [address] [place] [phone] 08/12/2025 10:40 AM CDT Nurse Only Section of Infectious Diseases in [place], [place] [address] [place] [phone] Jessica Rousseau M.B.B.S. 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 [address] [place] [phone] PCP - General Family Medicine 04/25/23 documented as of this encounter
--- OUTSIDE RECORDS SUMMARY | 2025-06-14 18:20 | XMS_ITS | Encounter Summary ---
Author Organization [facility] Address [address] [place] [address] Care Team Providers Care Before School Name Role Phone Renzo Andres M.D. Primary Care Provider Encounter Details Date Type Department Care Team (Late st Contact Info) Description 05/31/2025 Clinical Communication [facility], Ninth Floor [address] [place] [phone] Jennyfer Santos R.NKatalina Social History Tobacco Use Types Packs/Day Years Used Date Smoking Tobacco: Never Smokeless Tobacco: Never Alcohol Use Standard Drinks/Week Comments Yes 0 (1 standard drink = 0.6 oz pur e alcohol) social [place] Utilities Answer Date Recorded In the past 12 months has e [employer], gas, oil, or water [employer] threatened to shut off services in your [...] your living situation today? I have a [facility] place to live 05/28/2025 Education Answer Date Recorded What is the highest level of school you have completed or the highest degree you have received? Some college, no degree 04/24/2019 Comments No Sex and Gender Information Value Date Recorded Sex Assigned at Female 12/26/2018 8:37 PM INTERNATIONAL MARKETING SPECIALIST Legal Sex Female 2:43 PM INTERNATIONAL MARKETING SPECIALIST Gender Identity Female 12/26/2018 8:37 PM INTERNATIONAL MARKETING SPECIALIST Sexual Orientation Choose not to disclose [...] CDT Anesthesia Event Outpatient Procedure Center in [place], [place] [address] [place] [phone] Kristin Friend M.D. [address] [place] [phone] 06/15/2025 9:45 AM CDT Hospital Encounter Outpatient Procedure Center in [place], [place] [address] [place] [phone] Jessica Rousseau M.B.B.S. [address] [place] [phone] 06/15/2025 2:00 PM CDT [facility] in [place], [place] [address] [place] [phone] Jessica Rousseau M.B.B.S. [address] [place] [phone] 06/24/2025 12:30 PM CDT Clinical Communication Virtual Review in [place], [place] 200 [place] [address] 06/25/2025 8:10 AM CDT Lab Department of Laboratory Medicine and Pathology, [facility], in [place], [place] [address] [place] [phone] Tessa Jesus, KARON, C.N.P., D.N.P. [address] [place] [phone] 06/25/2025 9:00 AM CDT Office Visit Pedro sanchez [facility] for Transplantation and Clinical Regeneration in [place], [place] [address] [place] [phone] Tessa Jesus APRN, C.N.P., D.N.P. [address] [place] [phone] 06/25/2025 9:30 AM CDT Nurse Only [facility] in [place], [place] [address] [place] [address] Tessa Jesus APRN, C.N.P., D.N.P. [address] [place] [phone] 06/25/2025 10:30 AM CDT Office Visit [facility] Transplantation and Clinical Regeneration in [place], [place] [address] [place] [address] Jessica Rousseau M.B.B.S. [address] [place] [phone] 06/25/2025 12:00 PM CDT Appointment Department of Radiology, [facility], in [place], [place] [address] [place] [address] Arlen James APRN, C.N.P., D.N.P. [address] [place] [phone] 06/25/2025 12:40 PM CDT Appointment Department of Cardiovascular Diseases in [place], [place] [address] [place] [phone] Analia Carter APRN, C.N.P. [address] [place] [phone] Discharge Disposition: Home or Self Care 06/26/2025 10:00 AM CDT Telemedicine Department of Palliative Care in [place], [place] [address] [place] [phone] Isabel Sellers M.D. [address] [place] [address] Debbie Shay M.D. [address] [place] [phone] 08/12/2025 10:40 AM CDT Nurse Only Section of Infectious Diseases in [place], [place] [address] [place] [address] Jessica Rousseau M.B.B.S. [address] [place] [phone] documented as of this encounter Visit Diagnoses Not on filedocumented in this encounter Additional Health Concerns Infection Onset Date Last Indicated Resolved Time Protective Environment 03/02/2023 03/02/2023 Assessment Noted Time PHQ-9 Depression Total Score: 2 12/10/19 25 2:46 PM INTERNATIONAL MARKETING SPECIALIST documented as of this encounter Care Teams Before School Relationship Specialty Start Date End Date Renzo Andres M.D. [address] [place] [phone] PCP - General Family Medicine 04/25/23 documented as of this encounter
--- OUTSIDE RECORDS SUMMARY | 2025-06-14 18:20 | XMS_ITS | Encounter Summary ---
Author Organization [facility] Address [address] [place] [address] Care Team Providers Care Manager Drug Name Role Phone Renzo Andres M.D. Primary Care Provider [phone] Encounter Details Date Type Department Care Team (Late st Contact Info) Description 05/28/2025 Orders Only [facility], [facility], Ninth Floor [address] [place] [phone] Giselle Jean RKatalinaNKatalina Transplant Stem Cell (HCC) [...] things needed for daily living? No 06/12/2025 [facility] Utilities Answer Date Recorded In the past 12 months has th e electric, gas, oil, or water company threatened to shut off services in your home? No 06/12/2025 Depression Answer Date Recor ded PHQ-9 Total Score (max 27) 2 12/10 Housing Stability Answer Date Recorded What is your living situation today? I have a [facility] place to live 06/12/2025 Education Answer Date Recorded What is the highest level of school you have completed or the highest degree you have received? Some college, no degree 04/24/2019 Comments No Sex and Gender Information Value Date Recorded Sex Assigned at Female 12/26/2018 8:37 PM LEAD ELECTRICAL ENGINEER Legal Sex Female 2:43 PM LEAD ELECTRICAL ENGINEER Gender Identity Female 12/26/2018 8:37 PM LEAD ELECTRICAL ENGINEER Sexual Orientation Choose not to disclose 2020 3:46 PM CDT documented as of this encounter Plan of Treatment Upcoming Encounters Date Type Department Care Team (Latest Contact Info) Description 06/12/2025 11:59 PM CDT Anesthesia Event Outpatient Procedure Center in [place], [place] [address] [place] [address] Kristin Friend M.D. [address] [place] [address] 06/15/2025 9:45 AM CDT Hospital Encounter Outpatient Procedure Center in [place], [place] [address] [place] [phone] Jessica Rousseau M.B.B.S. [address] [place] [phone] 06/15/2025 2:00 PM CDT Office Visit Pedro sanchez [facility] for Transplantation and Clinical Regeneration in [place], [place] [address] [place] [phone] Jessica Rousseau M.B.B.S. [address] [place] [phone] 06/24/2025 12:30 PM CDT Clinical Communication Virtual Review in [place], [place] 200 [place] [address] 06/25/2025 8:10 AM CDT Lab Department of Laboratory Medicine and Pathology, [facility], in [place], [place] [address] [place] [phone] Tessa Jesus APRN, C.N.P., D.N.P. [address] [place] [phone] 06/25/2025 9:00 AM CDT [facility] in [place], [place] [address] [place] [phone] Tessa Jesus APRN, C.N.P., D.N.P. [address] [place] [phone] 06/25/2025 9:30 AM CDT Nurse Only [facility] in [place], [place] [address] [place] [phone] Tessa Jesus APRN, C.N.P., D.N.P. [address] [place] [phone] 06/25/2025 10:30 AM CDT Office [facility] in [place], [place] [address] [place] [address] Jessica Rousseau M.B.B.SKatalina [address] [place] [phone] 06/25/2025 12:00 PM CDT Appointment Department of Radiology, [facility], in [place], [place] [address] [place] [address] Arlen James APRN, C.N.P., D.N.P. [address] [place] [phone] 06/25/2025 12:40 PM CDT Appointment Department of Cardiovascular Diseases in [place], [place] [address] [place] [phone] Analia Carter, KARON, C.N.P. [address] [place] [phone] Discharge Disposition: Home or Self Care 06/26/2025 10:00 AM CDT Telemedicine Department of Palliative Care in [place], [place] [address] [place] [phone] Isabel Sellers M.D. [address] [place] [phone] Debbie Shay M.D. [address] [place] [phone] 08/12/2025 10:40 AM CDT Nurse Only Section of Infectious Diseases in [place], [place] [address] [place] [phone] Jessica Rousseau M.B.B.S. [address] [place] [address] documented as of this encounter Visit Diagnoses Diagnosis Transplant Stem Cell (HCC)- Primary documented in this encounter Additional Health Concerns Infection Onset Date Last Indicated Resolved Time Protective Environment 03/02/2023 03/02/2023 Assessment Noted Time PHQ-9 Depression Total Score: 2 12/10/19 25 2:46 PM LEAD ELECTRICAL ENGINEER documented as of this encounter Care Teams Manager Drug Relationship Specialty Start Date End Date Renzo Andres M.D. [address] [place] [phone] PCP - General Family Medicine 04/25/23 documented as of this encounter
--- OUTSIDE RECORDS SUMMARY | 2025-06-14 18:20 | XMS_ITS | Encounter Summary ---
Author Organization [facility] Address [address] [place] [address] Care Team Providers Care Awning Assembler Name Role Phone Renzo Andres M.D. Primary Care Provider [phone] Reason for Referral * Gastrointestinal (Routine) - Closed Specialty Diagnoses / Procedures Referred By Estefania acosta Referred To Contact Diagnoses Transplant Stem Cell (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) Procedures EGD (EsophagoGastroDuodenoscopy) Lito Pollock P.A.-C. 200 [place] [address] Phone: tel: fax: [facility] Referral ID Status Reason Start Date Expiration Date Visits Re quested Visits Authorized [id number] Closed 05/29/2025 08/29/2026 1 1 Encounter Details Date Type Department Care Team (Late st Contact Info) Description 05/29/2025 Orders Only [facility], [facility], Ninth Floor [address] [place] [address] Lito Pollock P.A.-C. [address] [place] [phone] Leukemia Myeloid Chronic BCR/ABL Positive Not Having [...] Recorded In the past 12 months has [facility] electric, gas, oil, or water company threatened to shut off services in your home? No 06/12/2025 Depression Answer Date Recor ded PHQ-9 Total Score (max 27) 2 12/10 Housing Stability Answer Date Recorded What is your living situation today? I have a [facility] place to live 06/12/2025 Education Answer Date Recorded What is the highest level of school you have completed or the highest degree you have received? Some college, no degree 04/24/2019 Comments No Sex and Gender Information Value Date Recorded Sex Assigned at Female 12/26/2018 8:37 PM SPECIAL SHOPPER Legal Sex Female 2:43 PM SPECIAL SHOPPER Gender Identity Female 12/26/2018 8:37 PM SPECIAL SHOPPER Sexual Orientation Choose not to disclose 2020 3:46 PM CDT documented as of this encounter Plan of Treatment Upcoming Encounters Date Type Department Care Team (Latest Contact Info) Description 06/12/2025 11:59 PM CDT Anesthesia Event Outpatient Procedure Center in [address] [phone] Kristin Friend M.D. [address] [place] [phone] 06/15/2025 9:45 AM CDT Hospital Encounter Outpatient Procedure Center in [address] [phone] Jessica Rousseau M.B.B.S. [address] [place] [phone] 06/15/2025 2:00 PM CDT [facility] in [address] [phone] Jessica Rousseau M.B.B.S. [address] [place] [phone] 06/24/2025 12:30 PM CDT Clinical Communication Virtual Review in [address] [phone] 06/25/2025 8:10 AM CDT Lab Department of Laboratory Medicine and Pathology, [facility], in [address] [phone] Tessa Jesus, KARON, C.N.P., D.N.P. [address] [place] [phone] 06/25/2025 9:00 AM CDT [facility] in [place], [place] [address] [place] [address] Tessa Jesus APRN, C.N.P., D.N.P. [address] [place] [phone] 06/25/2025 9:30 AM CDT Nurse Only [facility] Transplantation and Clinical Regeneration in [place], [place] [address] [place] [address] Tessa Jesus APRN, C.N.P., D.N.P. [address] [place] [phone] 06/25/2025 10:30 AM CDT Office Visit [facility] Transplantation and Clinical Regeneration in [place], [place] [address] [place] [address] Jessica Rousseau M.B.BKatalinaS. [address] [place] [phone] 06/25/2025 12:00 PM CDT Appointment Department of Radiology, [facility], in [place], [place] [address] [place] [address] Arlen James APRN, C.N.P., D.N.P. [address] [place] [phone] 06/25/2025 12:40 PM CDT Appointment Department of Cardiovascular Diseases in [place], [place] [address] [place] [address] Analia Carter APRN, C.N.P. [address] [place] [phone] Discharge Disposition: Home or Self Care 06/26/2025 10:00 AM CDT Telemedicine Department of Palliative Care in [place], [place] [address] [place] [phone] Isabel Sellers M.D. [address] [place] [phone] Debbie Shay M.D. [address] [place] [phone] 08/12/2025 10:40 AM CDT Nurse Only Section of Infectious Diseases in [place], [place] [address] [place] [phone] Jessica Rousseau M.B.B.S. [address] [place] [phone] documented as of this encounter Results * CMV DNA Detect / Quant, Plasma (06/03/2025 9:41 AM CDT) [facility] CMV DNA Detect/Quant, P Undetected Undetected IU/mL 06/03/2025 11:07 PM CDT [facility] Comment: Result in log IU/mL is Undetected. ----ADDITIONAL INFORMATION---- The quantification range of this assay is 35 to 10,000,000 IU/mL (1.54 log to 7.00 log IU/mL). Testing was performed using the lucrecia CMV test ([employer] Blood (Blood, Venous) 06/03/2025 9:41 AM CDT 06/03/2025 12:05 PM CDT us Lito Pollock P.A.-C. LAB MICROBIOLOGY - BLOOD ORDER JANES Final Result [facility] [address] [place] [address] [facility] [address] [place] [address] [place] [phone] * Magnesium (06/03/2025 9:41 AM CDT) [facility] Magnesium, S 2.3 1.7 - 2.3 mg/dL 06/03/2025 10:41 AM CDT DTL Blood (Blood, Venous) 06/03/2025 9:41 AM CDT 06/03/2025 10:07 AM CDT Lito Ferrer-C. LAB BLOOD [place] [address] * LD (Lactate Dehydrogenase) (06/03/2025 9:41 AM CDT) [facility] LD 152 122 - 222 U/L 06/03/2025 11:04 AM CDT DTL Blood (Blood, Venous) 06/03/2025 9:41 AM CDT 06/03/2025 10:44 AM CDT Lito Ferrer-C. LAB BLOOD NON ADD-[place] [address] * Comprehensive Metabolic Panel (06/03/2025 9:41 AM CDT) [facility] Potassium, S 4.1 3.6 - 5.2 mmol/L 06/03/2025 10:41 AM CDT DTL Sodium, S 138 135 - 145 mmol/L 06/03/2025 10:41 AM CDT DTL Chloride, S 100 98 - 107 mmol/L 06/03/2025 10:41 AM CDT DTL Bicarbonate, S 26 22 - 29 mmol/L 06/03/2025 10:41 AM CDT DTL Anion Gap 12 7 - 15 06/03/2025 10:41 AM CDT DTL BUN (Blood Urea Nitrogen), S 12 6 - 21 mg/dL 06/03/2025 10:41 AM CDT DTL Creatinine 1.01 0.59 - 1.04 mg/dL 06/03/2025 10:41 AM CDT DTL Estimated GFR (eGFR) 74 >=60 mL/min/BS A 06/03/2025 10:41 AM CDT DTL Comment: Estimated GFR calculated using the 2020 CKD_EPI creatinine equation. Calcium, Total, S 9.1 8.6 - 10.0 mg/dL 06/03/2025 10:41 AM CDT DTL Glucose, S 134 70 - 140 mg/dL 06/03/2025 10:41 AM CDT DTL Protein, Total, S 6.8 6.3 - 7.9 g/dL 06/03/2025 10:41 AM CDT DTL Albumin, S 4.3 3.5 - 5.0 g/dL 06/03/2025 10:41 AM CDT DTL Aspartate Aminotransferase (AST), S 21 8 - 43 U/L 06/03/2025 10:41 AM CDT DTL Alkaline Phosphatase, S 85 35 - 104 U/L 06/03/2025 10:41 AM CDT DTL Alanine Aminotransferase (ALT), S 27 7 - 45 U/L 06/03/2025 10:41 AM CDT DTL Bilirubin, Total, S 0.4 0.0 - 1.2 mg/dL 06/03/2025 10:41 AM CDT DTL Blood (Blood, Venous) 06/03/2025 9:41 AM CDT 06/03/2025 10:07 AM CDT Lito Pollock P.A.-C. LAB BLOOD ADD-ON Final Result [facility] [address] [place] [address], [facility] DTL [facility] [address] [place] [address] * (ABNORMAL) CBC with Differential, Blood (06/03/2025 9:41 AM CDT) Hemoglobin 12.7 11.6 - 15.0 g/dL 06/03/2025 10:40 AM CDT DTL Hematocrit 39.5 35.5 - 44.9 % 06/03/2025 10:40 AM CDT DTL Erythrocytes 4.75 3.92 - 5.13 x10(12)/L 06/03/2025 10:40 AM CDT DTL MCV 83.2 78.2 - 97.9 fL 06/03/2025 10:40 AM CDT DTL RBC Distrib Width 13.9 12.2 - 16.1 % 06/03/2025 10:40 AM CDT DTL Platelet Count 213 157 - 371 x10(9)/L 06/03/2025 10:40 AM CDT DTL Leukocytes 4.1 3.4 - 9.6 x10(9)/L 06/03/2025 10:40 AM CDT DTL Neutrophils 3.08 1.56 - 6.45 x10(9)/L 06/03/2025 10:40 AM CDT [facility] Lymphocytes 0.69(L) 0.95 - 3.07 x10(9)/L 06/03/2025 10:40 AM CDT DTL Monocytes 0.27 0.26 - 0.81 x10(9)/L 06/03/2025 10:40 AM CDT DTL Eosinophils 0.08 0.03 - 0.48 x10(9)/L 06/03/2025 10:40 AM CDT DTL Basophils <0.03 0.01 - 0.08 x10(9)/L 06/03/2025 10:40 AM CDT DTL Blood (Blood, Venous) 06/03/2025 9:41 AM CDT 06/03/2025 9:56 AM CDT us Lito Pollock P.A.-C. LAB BLOOD ADD-ON Final Result [facility] [address] [place] [address], [facility] DTL [facility] [address] [place] [address] [facility] [address] [place] [address] documented in this encounter Visit Diagnoses Diagnosis Leukemia Myeloid Chronic BCR/ABL Positive Not Having Achieved Remission (HCC)- Primary Transplant Stem Cell (HCC) documented in this encounter Additional Health Concerns Infection Onset Date Last Indicated Resolved Time Protective Environment 03/02/2023 03/02/2023 Assessment Noted Time PHQ-9 Depression Total Score: 2 12/10/19 25 2:46 PM SPECIAL SHOPPER documented as of this encounter Care Teams Awning Assembler Relationship Specialty Start Date End Date Renzo Andres M.D. [address] [place] [phone] PCP - General Family Medicine 04/25/23 documented as of this encounter
--- OUTSIDE RECORDS SUMMARY | 2025-06-14 18:20 | XMS_ITS | Encounter Summary ---
Author Organization [facility] Address [address] [place] [address] Care Team Providers Care Guitar Repairer Name Role Phone Renzo Andres M.D. Primary Care Provider Reason for Visit * Reason Onset Date Comments Prescreen Immunization Review 05/26/2025 Encounter Details Date Type Department Care Team (Latest Contact Info) Description 05/26/2025 Clinical Communication Section of Infectious Diseases in [place], [place] [address] [place] [address] Jennifer Marx RKatalinaNKatalina [address] [place] [address] Prescreen Immunization Review Social History Tobacco Use [...] your living situation today? I have a [facility] place to live 12/19/2024 Education Answer Date Recorded What is the highest level of school you have completed or the highest degree you have received? Some college, no degree 04/24/2019 Comments No Sex and Gender Information Value Date Recorded Sex Assigned at Female 12/26/2018 8:37 PM DIRECTOR OF COMMUNITY LIFE Legal Sex Female 2:43 PM DIRECTOR OF COMMUNITY LIFE Gender Identity Female 12/26/2018 8:37 PM DIRECTOR OF COMMUNITY LIFE Sexual Orientation Choose not to disclose 2020 [...] CDT Anesthesia Event Outpatient Procedure Center in [address] [phone] Kristin Friend M.D. [address] [place] [phone] 06/15/2025 9:45 AM CDT Hospital Encounter Outpatient Procedure Center in [address] [phone] Jessica Rousseau M.B.B.S. [address] [place] [phone] 06/15/2025 2:00 PM CDT Office Visit Pedro Aravind [facility] for Transplantation and Clinical Regeneration in [address] [phone] Jessica Rousseau M.B.B.S. [address] [place] [phone] 06/24/2025 12:30 PM CDT Clinical Communication Virtual Review in [address] [phone] 06/25/2025 8:10 AM CDT Lab Department of Laboratory Medicine and Pathology, [facility], in [address] [phone] Tessa Jesus APRN, C.N.P., D.N.P. [address] [place] [phone] 06/25/2025 9:00 AM CDT Office Visit [facility] Transplantation and Clinical Regeneration in [place], [place] [address] [place] [address] Tessa Jesus APRN, C.N.P., D.N.P. [address] [place] [phone] 06/25/2025 9:30 AM CDT Nurse Only [facility] Transplantation and Clinical Regeneration in [place], [place] [address] [place] [address] Tessa Jesus APRN, C.N.P., D.N.P. [address] [place] [phone] 06/25/2025 10:30 AM CDT Office Visit [facility] Transplantation and Clinical Regeneration in [place], [place] [address] [place] [phone] Jessica Rousseau M.B.B.SKatalina [address] [place] [phone] 06/25/2025 12:00 PM CDT Appointment Department of Radiology, [facility], in [place], [place] [address] [place] [phone] Arlen James APRN, C.N.P., D.N.P. [address] [place] [phone] 06/25/2025 12:40 PM CDT Appointment Department of Cardiovascular Diseases in [place], [place] [address] [place] [phone] Analia Carter APRN, C.N.P. [address] [place] [phone] Discharge Disposition: Home or Self Care 06/26/2025 10:00 AM CDT Telemedicine Department of Palliative Care in [place], [place] [address] [place] [phone] Isabel Sellers M.D. [address] [place] [phone] Debbie Shay M.D. [address] [place] [phone] 08/12/2025 10:40 AM CDT Nurse Only Section of Infectious Diseases in [place], [place] [address] [place] [phone] Jessica Rousseau M.B.B.S. [address] [place] [phone] documented as of this encounter Visit Diagnoses Not on filedocumented in this encounter Additional Health Concerns Infection Onset Date Last Indicated Resolved Time Protective Environment 03/02/2023 03/02/2023 Assessment Noted Time PHQ-9 Depression Total Score: 2 12/10/19 25 2:46 PM DIRECTOR OF COMMUNITY LIFE documented as of this encounter Care Teams Guitar Repairer Relationship Specialty Start Date End Date Renzo Andres M.D. [address] [place] [phone] PCP - General Family Medicine 04/25/23 documented as of this encounter
--- OUTSIDE RECORDS SUMMARY | 2025-06-14 18:20 | XMS_ITS | Encounter Summary ---
Author Organization [facility] Address [address] [place] [address] Care Team Providers Care Steam Finisher Name Role Phone Renzo Andres M.D. Primary Care Provider [phone] Reason for Visit * Reason Onset Date Comments Chest Pain 06/14/2025 Encounter Details Date Type Department Care Team (Latest Contact Info) Description 06/14/2025 Clinical Communication Pedro Fatima Sylva for Transplantation and Clinical Regeneration in [place], [place] [address] [place] [address] Cecile Hernandez RKatalinaNKatalina [address] [place] [phone] Chest Pain Social History Tobacco Use Types Packs/Day Years [...] needed for daily living? No 06/12/2025 [facility] Utilities Answer Date Recorded In the past 12 months has th e electric, gas, oil, or water company threatened to shut off services in your home? No 06/12/2025 Depression Answer Date Recor ded PHQ-9 Total Score (max 27) 2 12/10 Housing Stability Answer Date Recorded What is your living situation today? I have a [facility] place to live 06/12/2025 Education Answer Date Recorded What is the highest level of school you have completed or the highest degree you have received? Some college, no degree 04/24/2019 Comments No Sex and Gender Information Value Date Recorded Sex Assigned at Female 12/26/2018 8:37 PM CALL OR CONTACT CENTRE OPERATOR Legal Sex Female 2:43 PM CALL OR CONTACT CENTRE OPERATOR Gender Identity Female 12/26/2018 8:37 PM CALL OR CONTACT CENTRE OPERATOR Sexual Orientation Choose not to disclose 2020 3:46 PM CDT documented as of this encounter Miscellaneous Notes * Telephone Encounter - Cecile Hernandez R.N. - 06/14/2025 5:01 PM CDT ASSESSMENT Patient was discharged from the hospital yesterday. She calls [facility] related to constipation and chest pain. She first wanted to know if she continuesthe stool softeners after only having one small bowel movement last evening. I confirmed yes. Then she explains that she has 5/10 chest pain. She has had this before, she states, but never thisbad. She explains that she was on her way home, driving, and had to dust puller because it was bad. PLAN I requested the patient to go to the emergency department. Service notified. Disposition/Recommendation: recommended to report to the nearest emergency department. Information/Education: patient/caller able to teach back. Caller agreeable to plan of care: yes. The following references were used: nursing clinical judgement. documented in this encounter Plan of Treatment Upcoming Encounters Date Type Department Care Team (Latest Contact Info) Description 06/12/2025 11:59 PM CDT Anesthesia Event Outpatient Procedure Center in [address] [phone] Kristin Friend M.D. [address] [place] [phone] 06/15/2025 9:45 AM CDT Hospital Encounter Outpatient Procedure Center in [address] [phone] Jessica Rousseau M.B.B.S. [address] [place] [phone] 06/15/2025 2:00 PM CDT [facility] in [address] [phone] Jessica Rousseau M.B.B.S. [address] [place] [phone] 06/24/2025 12:30 PM CDT Clinical Communication Virtual Review in [place], [place] 200 [place] [address] 06/25/2025 8:10 AM CDT Lab Department of Laboratory Medicine and Pathology, [facility], in [address] [phone] Tessa Jesus APRN, C.N.P., D.N.P. [address] [place] [phone] 06/25/2025 9:00 AM CDT [facility] in [place], [place] [address] [place] [address] Tessa Jesus APRN, C.N.P., D.N.P. [address] [place] [phone] 06/25/2025 9:30 AM CDT Nurse Only [facility] Transplantation and Clinical Regeneration in [place], [place] [address] [place] [address] Tessa Jesus APRN, C.N.P., D.N.P. [address] [place] [phone] 06/25/2025 10:30 AM CDT [facility] in [place], [place] [address] [place] [address] Jessica Rousseau M.B.B.S. [address] [place] [phone] 06/25/2025 12:00 PM CDT Appointment Department of Radiology, [facility], in [place], [place] [address] [place] [address] Arlen James APRN, C.N.P., D.N.P. [address] [place] [phone] 06/25/2025 12:40 PM CDT Appointment Department of Cardiovascular Diseases in [place], [place] [address] [place] [phone] Analia Carter, KARON, C.N.P. [address] [place] [phone] Discharge Disposition: Home or Self Care 06/26/2025 10:00 AM CDT Telemedicine Department of Palliative Care in [place], [place] [address] [place] [phone] Isabel Sellers M.D. [address] [place] [phone] Debbie Shay M.D. [address] [place] [phone] 08/12/2025 10:40 AM CDT Nurse Only Section of Infectious Diseases in [place], [place] [address] [place] [phone] Jessica Rousseau M.B.B.S. [address] [place] [phone] documented as of this encounter Visit Diagnoses Not on filedocumented in this encounter Additional Health Concerns Infection Onset Date Last Indicated Resolved Time Protective Environment 03/02/2023 03/02/2023 Assessment Noted Time PHQ-9 Depression Total Score: 2 12/10/19 25 2:46 PM CALL OR CONTACT CENTRE OPERATOR documented as of this encounter Care Teams Steam Finisher Relationship Specialty Start Date End Date Renzo Andres M.D. [address] [place] [address] [place] [address] PCP - General Family Medicine 04/25/23 documented as of this encounter
--- OUTSIDE RECORDS SUMMARY | 2025-06-14 18:20 | XMS_ITS | Encounter Summary ---
Author Organization [facility] Address [address] [place] [address] Care Team Providers Care Traffic Investigator Name Role Phone Renzo Andres M.D. Primary Care Provider [phone] Encounter Details Date Type Department Care Team (Late st Contact Info) Description 05/27/2025 Orders Only Department of Palliative Care in [place], [place] [address] [place] [phone] Felicia Watt, KARON, C.N.P., M.S.N. [address] [place] [phone] Social History Tobacco Use Types Packs/Day Years [...] [facility] 05/28/2025 Education Answer Date Recorded What is the highest level of school you have completed or the highest degree you have received? Some college, no degree 04/24/2019 Comments No Sex and Gender Information Value Date Recorded Sex Assigned at Female 12/26/2018 8:37 PM ORDER PACKER Legal Sex Female 2:43 PM ORDER PACKER Gender Identity Female 12/26/2018 8:37 PM ORDER PACKER Sexual Orientation Choose not to disclose 2020 3:46 PM CDT documented as of this encounter Plan of Treatment Upcoming Encounters Date Type Department Care Team (Latest Contact Info) Description 06/12/2025 11:59 PM CDT Anesthesia Event Outpatient Procedure Center in [place], [place] 200 [place] [address] Kristin Friend M.D. 200 [place] [phone] 06/15/2025 9:45 AM CDT Hospital Encounter Outpatient Procedure Center in [place], [place] [address] [place] [phone] Jessica Rousseau M.B.B.S. [address] [place] [phone] 06/15/2025 2:00 PM CDT Office [facility] in [place], [place] [address] [place] [phone] Jessica Rousseau M.B.B.S. [address] [place] [phone] 06/24/2025 12:30 PM CDT Clinical Communication Virtual Review in [place], [place] 200 [place] [phone] 06/25/2025 8:10 AM CDT Lab Department of Laboratory Medicine and Pathology, [facility] in [place], [place] [address] [place] [phone] Tessa Jesus APRN, C.N.P., D.N.P. [address] [place] [phone] 06/25/2025 9:00 AM CDT Office Visit [facility] for Transplantation and Clinical Regeneration in [place], [place] [address] [place] [phone] Tessa Jesus APRN, C.N.P., D.N.P. [address] [place] [phone] 06/25/2025 9:30 AM CDT Nurse Only Pedro [facility] for Transplantation and Clinical Regeneration in [place], [place] [address] [place] [phone] Tessa Jesus APRN, C.N.P., D.N.P. [address] [place] [phone] 06/25/2025 10:30 AM CDT Office Visit [facility] 2[facility] for Transplantation and Clinical Regeneration in [place], [place] [address] [place] [address] Jessica Rousseau M.B.B.S. [address] [place] [phone] 06/25/2025 12:00 PM CDT Appointment Department of Radiology, [facility], in [place], [place] [address] [place] [address] Arlen James APRN, C.NDustin, D.N.P. [address] [place] [phone] 06/25/2025 12:40 PM CDT Appointment Department of Cardiovascular Diseases in [place], [place] [address] [place] [phone] Analia Carter APRN, Satnam.N.P. [address] [place] [phone] Discharge Disposition: Home or Self Care 06/26/2025 10:00 AM CDT Telemedicine Department of Palliative Care in [place], [place] [address] [place] [phone] Isabel Sellers M.D. [address] [place] [phone] Debbie Shay M.D. [address] [place] [phone] 08/12/2025 10:40 AM CDT Nurse Only Section of Infectious Diseases in [place], [place] [address] [place] [phone] Jessica Rousseau M.B.B.S. [address] [place] [address] documented as of this encounter Visit Diagnoses Not on filedocumented in this encounter Additional Health Concerns Infection Onset Date Last Indicated Resolved Time Protective Environment 03/02/2023 03/02/2023 Assessment Noted Time PHQ-9 Depression Total Score: 2 12/10/19 25 2:46 PM ORDER PACKER documented as of this encounter Care Teams Traffic Investigator Relationship Specialty Start Date End Date Renzo Andres M.D. [address] [place] [address] [place] [phone] PCP - General Family Medicine 04/25/23 documented as of this encounter
--- OUTSIDE RECORDS SUMMARY | 2025-06-14 18:21 | XMS_ITS | Encounter Summary ---
Author Organization [facility] Address [address] [place] [address] Care Team Providers Care Lead Programmer Name Role Phone Renzo Andres M.D. Primary Care Provider Encounter Details Date Type Department Care Team (Late st Contact Info) Description 04/18/2025 Orders Only [facility], [facility], [facility], Ninth Floor [address] [place] [phone] Becky Hernandez APRN, C.N.P., D.N.P. [address] [place] [phone] Social History Tobacco Use Types Packs/Day Years [...] Sex Assigned at Female 12/26/2018 8:37 PM PAINT PREP TECHNICIAN Legal Sex Female 2:43 PM PAINT PREP TECHNICIAN Gender Identity Female 12/26/2018 8:37 PM PAINT PREP TECHNICIAN Sexual Orientation Choose not to disclose 2020 3:46 PM CDT documented as of this encounter Plan of Treatment Upcoming Encounters Date Type Department Care Team (Latest Contact Info) Description 06/12/2025 11:59 PM CDT Anesthesia Event Outpatient Procedure Center in [place], [place] 200 [place] [address] Kristin Friend M.D. 200 [place] [address] 06/15/2025 9:45 AM CDT Hospital Encounter Outpatient Procedure Center in [place], [place] [address] [place] [phone] Jessica Rousseau M.B.B.S. [address] [place] [phone] 06/15/2025 2:00 PM CDT [facility] in [place], [place] [address] [place] [phone] Jessica Rousseau M.B.B.S. [address] [place] [phone] 06/24/2025 12:30 PM CDT Clinical Communication Virtual Review in [place], [place] 200 [place] [phone] 06/25/2025 8:10 AM CDT Lab Department of Laboratory Medicine and Pathology, [facility], in [place], [place] [address] [place] [phone] Tessa Jesus APRN, C.N.P., D.N.P. [address] [place] [phone] 06/25/2025 9:00 AM CDT Office [facility] in [place], [place] [address] [place] [phone] Tessa Jesus APRN, C.N.P., D.N.P. [address] [place] [phone] 06/25/2025 9:30 AM CDT Nurse Only [facility] in [place], [place] [address] [place] [phone] Tessa Jesus APRN C.N.P., D.N.P. [address] [place] [phone] 06/25/2025 10:30 AM CDT Office Visit [facility] in [place], [place] [address] [place] [address] Jessica Rousseau M.B.BKatalinaSKatalina [address] [place] [phone] 06/25/2025 12:00 PM CDT Appointment Department of Radiology, [facility], in [place], [place] [address] [place] [phone] Arlen James APRN, C.N.P., D.N.P. [address] [place] [phone] 06/25/2025 12:40 PM CDT Appointment Department of Cardiovascular Diseases in [place], [place] [address] [place] [phone] Analia Carter APRN, C.N.P. [address] [place] [phone] Discharge Disposition: Home or Self Care 06/26/2025 10:00 AM CDT Telemedicine Department of Palliative Care in [place], [place] [address] [place] [phone] Isabel Sellers M.D. [address] [place] [phone] Debbie Shay M.D. [address] [place] [phone] 08/12/2025 10:40 AM CDT Nurse Only Section of Infectious Diseases in [place], [place] [address] [place] [address] Jessica Rousseau M.B.B.S. [address] [place] [address] documented as of this encounter Visit Diagnoses Not on filedocumented in this encounter Additional Health Concerns Infection Onset Date Last Indicated Resolved Time Protective Environment 03/02/2023 03/02/2023 Assessment Noted Time PHQ-9 Depression Total Score: 2 12/10/19 25 2:46 PM PAINT PREP TECHNICIAN documented as of this encounter Care Teams Lead Programmer Relationship Specialty Start Date End Date Renzo Andres M.D. [address] [place] [phone] PCP - General Family Medicine 04/25/23 documented as of this encounter
--- OUTSIDE RECORDS SUMMARY | 2025-06-14 18:21 | XMS_ITS | Encounter Summary ---
Author Organization [facility] Address [address] [place] [address] Care Team Providers Care Frame Pulley Mortising Machine Operator Name Role Phone Renzo Andres M.D. Primary Care Provider Encounter Details Date Type Department Care Team (Latest Contact Info) Description 04/20/2025 Clinical Communication Pedro Naz[facility] for Transplantation and Clinical Regeneration in [place], [place] [address] [place] [address] Tara Marin R.N., BMT-CN [address] [place] [address] Social History Tobacco Use Types Packs/Day Years Used Date Smoking Tobacco: Never Smokeless Tobacco: Never Alcohol Use Standard Drinks/Week Comments Yes 0 (1 standard drink = 0.6 oz pur e alcohol) social [facility] Utilities Answer Date Recorded In the [...] Sex Assigned at Female 12/26/2018 8:37 PM SENIOR APPLICATIONS DEVELOPER Legal Sex Female 2:43 PM SENIOR APPLICATIONS DEVELOPER Gender Identity Female 12/26/2018 8:37 PM SENIOR APPLICATIONS DEVELOPER Sexual Orientation Choose not to disclose 2020 3:46 PM CDT documented as of this encounter Miscellaneous Notes * Telephone Encounter - Tara Marin R.N., BMT-CN - 04/20/2025 3:[address] Rousseau, Outside labs from 04/20/25 are located in the Labs section of [facility]. Labs pending: none Resulted Labs: Recent Labs [...] up a video visit follow-up with an GENERAL FARMER on Ch 9 to further discuss symptoms [...] CDT Anesthesia Event Outpatient Procedure Center in [address] [phone] Kristin Friend M.D. [address] [place] [phone] 06/15/2025 9:45 AM CDT Hospital Encounter Outpatient Procedure Center in [address] [address] Jessica Rousseau M.B.B.S. [address] [place] [phone] 06/15/2025 2:00 PM CDT [facility] in [address] [address] Jessica Rousseau M.B.B.S. [address] [place] [phone] 06/24/2025 12:30 PM CDT Clinical Communication Virtual Review in [address] [phone] 06/25/2025 8:10 AM CDT Lab Department of Laboratory Medicine and Pathology, [facility], in [place], [place] [address] [place] [address] Tessa Jesus APRN, C.N.PKatalina, D.N.P. [address] [place] [phone] 06/25/2025 9:00 AM CDT Office [facility] in [place], [place] [address] [place] [address] Tessa Jesus APRN, C.N.PKatalina, D.N.P. [address] [place] [phone] 06/25/2025 9:30 AM CDT Nurse Only [facility] for Transplantation and Clinical Regeneration in [place], [place] [address] [place] [address] Tessa Jesus APRN, Satnam.N.P., D.N.P. [address] [place] [phone] 06/25/2025 10:30 AM CDT Office Visit [facility] Transplantation and Clinical Regeneration in [place], [place] [address] [place] [address] Jessica Rousseau M.B.B.SKatalina [address] [place] [phone] 06/25/2025 12:00 PM CDT Appointment Department of Radiology, [facility], in [place], [place] [address] [place] [address] Arlen James APRN, C.N.P., D.N.P. [address] [place] [phone] 06/25/2025 12:40 PM CDT Appointment Department of Cardiovascular Diseases in [place], [place] [address] [place] [phone] Analia Carter APRN, C.N.P. [address] [place] [phone] Discharge Disposition: Home or Self Care 06/26/2025 10:00 AM CDT Telemedicine Department of Palliative Care in [place], [place] [address] [place] [phone] Isabel Sellers M.D. [address] [place] [phone] Debbie Shay M.D. [address] [place] [phone] 08/12/2025 10:40 AM CDT Nurse Only Section of Infectious Diseases in [place], [place] [address] [place] [phone] Jessica Rousseau M.B.B.S. [address] [place] [phone] documented as of this encounter Visit Diagnoses Not on filedocumented in this encounter Additional Health Concerns Infection Onset Date Last Indicated Resolved Time Protective Environment 03/02/2023 03/02/2023 Assessment Noted Time PHQ-9 Depression Total Score: 2 12/10/19 25 2:46 PM SENIOR APPLICATIONS DEVELOPER documented as of this encounter Care Teams Frame Pulley Mortising Machine Operator Relationship Specialty Start Date End Date Renzo Andres M.D. [address] [place] [phone] PCP - General Family Medicine 04/25/23 documented as of this encounter
--- OUTSIDE RECORDS SUMMARY | 2025-06-14 18:21 | XMS_ITS | Clinical Summary ---
Author Organization [facility] Address [address] [place] [address] Care Team Providers Care Medicare Sales Executive Name Role Phone Renzo Andres M.D. Primary Care Provider [phone] Source Comments Patient records contain information from all sites at [facility]. For routine questions regarding patient records, call [phone] during business hours, M-F 8:00 AM - 5:00 PM Central Time. Record requests for emergency care only can be directed to [phone] at any time.[facility] Allergies Active Allergy Reactions Criticality Noted Date [...] mouth daily. 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 60 tablet Active ARIPiprazole (Abilify) 10 mg tablet Take 1 tablet (10 mg total) by mouth daily. 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 60 tablet Active melatonin 5 mg tablet Take 5 mg by mouth at bedtime. 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 60 tablet 1 Active HYDROmorphone (Dilaudid) 1 mg/mL liquidIndications :Chronic Pain/Nonacute Pain Take 0.5 mL (0.5 mg total) by mouth daily as needed for pain Indication: Chronic Pain/Nonacute Pain. 10 mL Active loperamide (Imodium A-D) 2 mg capsule Take 1 capsule (2 mg total) by mouth every 2 (two) hours as needed for diarrhea. Take with occurrence of diarrhea. May take up to 16 mg, or 8 doses daily. Active prochlorperazine (Compazine) 10 mg tablet Take 1 tablet (10 mg total) by mouth every 6 (six) hours as needed for nausea. 30 tablet 1 025 Active buprenorphine (Butrans) 5 mcg/hourIndicatio ns:Chronic Pain/Nonacute Pain Place 1 patch on the skin once a week Indication: Chronic Pain/Nonacute Pain. 4 patch 025 Active naloxone (Narcan) 4 mg/actuation nasal spray Administer 1 spray (4 mg total) into nostril(s) once for 1 dose. Use 1 spray in 1 nostril. Repeat with second device in other nostril after 2-3 minutes if no or minimal response. 2 each Active ondansetron ODT (Zofran-ODT) 4 mg disintegrating tablet Dissolve 1-2 tablets (4-8 mg total) in the mouth every 8 (eight) hours as needed for nausea or vomiting. 20 tablet 1 Active pantoprazole (Protonix) 40 mg EC tablet Take 1 tablet (40 mg total) by mouth 2 (two) times a day before morning and evening meals. 60 tablet 1 05/29/20 25 4:28 PM CDT Active Additional Information Patient taking differently:40 mg oralDaily before morning meal, Reported on 06/10/2025 predniSONE (Deltasone) 10 mg tablet Take 3 tablets (30 mg total) by mouth daily for 4 days, THEN 2 tablets (20 mg total) daily for 3 days, THEN 1 tablet (10 mg total) daily for 3 days. 21 tablet 2024 Active acetaminophen (TylenoL) 325 mg tablet Take 2 tablets (650 mg total) by mouth every 4 (four) hours as needed for mild pain or score 1-3 of 10. Active alum-mag hydroxide-simeth (Maalox) 200-200-20 mg/5 mL suspension Take 30 mL by mouth every 4 (four) hours as needed for indigestion (dyspepsia). Active diphenhydrAMINE (BenadryL) 25 mg capsule Take 1 capsule (25 mg total) by mouth every 6 (six) hours as needed for itching. Active docusate sodium (Colace) 100 mg capsule Take 1 capsule (100 mg total) by mouth 2 (two) times a day. Active ibuprofen 400 mg tablet Take 1 tablet (400 mg total) by mouth every 6 (six) hours as needed for moderate pain or score 4-6 of 10. Active sennosides-docusa te sodium (Senokot-S) 8.6-50 mg per tablet Take 1 tablet by mouth 2 (two) times a day as needed for constipation. 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 90 tablet Active LORazepam (Ativan) 0.5 mg tablet Take 1 tablet (0.5 mg total) by mouth at bedtime as needed for anxiety. 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 90 tablet 025 2024 Discontinued(R eorder) gabapentin (Neurontin) 300 mg capsule Take 1-2 capsules (300-600 mg total) by mouth 2 (two) times a day. 04/29/25: Increase dose to 300 mg in AM and 600 mg at bedtime. 90 capsule 3 025 2024 Discontinued(S top Taking at Discharge) predniSONE (Deltasone) 10 mg tablet Take 6 tablets (60 mg total) by mouth daily for 3 days, THEN 5 tablets (50 mg total) daily for 5 days. 43 tablet 05/29/20 4:28 PM CDT 025 2024 Discontinued budesonide (Entocort EC) [address] capsule Take 2 capsules (6 mg total) by mouth daily. 60 capsule 1 025 2024 Discontinued(R eorder) budesonide (Entocort EC) [address] capsule Take 2 capsules (6 mg total) by mouth daily. 60 capsule 1 025 2024 Discontinued predniSONE (Deltasone) 10 mg tablet Take 6 tablets (60 mg total) by mouth daily for 3 days, THEN 5 tablets (50 mg total) daily for 5 days. Please hold while on budesonide. 025 2024 Discontinued Active Problems Patient Care Coordination No te [...] RSV: MMR: Local Lab/Provider: [place] [address] Problem Noted Date Diagnosed Date Abdominal Pain [...] Encounters Date Type Department Care Team Description 06/14/2025 [facility] in [place], [place] [address] [place] [address] Cecile Hernandez R.N. Chest Pain 06/13/2025 Orders Only [facility], Ninth Floor [address] [place] [address] Analia Carter, KARON, C.N.P. 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, Tenth Floor [address] [place] [address] Mallory Sharif M.D. Kumar, Shaji, M.D. Discharge Disposition: Home or Self Care 06/12/2025 Clinical Communication [facility] in [place], [place] [address] [place] [phone] Daniela Mercer R.N., BMT-CN Nurse Assessment; Abdominal Pain 06/10/2025 1:20 PM CDT Nurse Only Section of Infectious Diseases in [place], [place] [address] [place] [phone] Jessica Rousseau M.B.B.S. Carolyn Gardner R.N. Immunizations 06/10/2025 12:45 PM CDT [facility] in [place], [place] [address] [place] [address] Ta Medrano 06/08/2025 1:15 PM CDT Internal E-Consult Section of Infectious Diseases in [place], [place] [address] [place] [address] Arlen James APRN, C.N.P., Vanessa Freire P.A.-C. 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, Ninth Floor [address] [place] [address] Analia Carter APRN, C.N.P. 06/08/2025 Clinical Communication [facility] in [place], [place] [address] [place] [address] Jessica Rousseau M.B.B.S. Lab Monitoring 06/08/2025 Clinical Communication [facility] in [place], [place] [address] [place] [address] Jsesica Rousseau M.B.B.S. 06/07/2025 11:45 AM CDT - 06/07/2025 11:59 PM CDT Hospital Encounter [facility], Ninth Floor [address] [place] [address] Analia Carter APRN, C.N.P. 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 Transplant Stem Cell (HCC) (Primary Dx) 06/06/2025 Orders Only [facility], [facility], Ninth Floor [address] [place] [address] Analia Carter APRN, C.N.PKatalina Transplant Stem Cell (HCC) (Primary Dx); Pain Pleuritic Chest 06/05/2025 8:36 AM CDT - 06/05/2025 11:59 PM CDT Hospital Encounter Department of Radiology in [address] [address] Jessica Avila APRN, C.N.P., M.S.N. Transplant Stem Cell (HCC) Discharge Disposition: Home or Self Care 06/05/2025 Documentation [facility] in [place], [place] [address] [place] [address] Jessica Avila APRN, C.N.P., M.S.N. 06/05/[address] [facility] Transplantation and Clinical Regeneration in [place], [place] [address] [place] [address] Jessica Rousseau M.B.B.S. Phone Contact (CT Results) 06/03/2025 10:00 AM CDT Office Visit [facility] in [place], [place] [address] [place] [address] Tessa Jesus APRN, C.N.P., D.N.P. Jessica Avila APRN C.N.P., M.S.N. Transplant Stem Cell (HCC) (Primary Dx) 06/02/2025 Clinical Communication [facility] in [place], [place] [address] [place] [address] Transplant, Coordinator, RFritz Nurse Assessment 06/01/2025 1:39 PM CDT Anesthesia Event Division of Gastroenterology in [place], [place] [address] [place] [address] Isaias Tolbert APRN, CRNA Pompeian, Rochelle J, M.D. 06/01/2025 1:15 PM CDT Ancillary Procedure Department of Gastroenterology 06/01/2025 12:04 PM CDT - 06/01/2025 11:59 PM CDT Hospital Encounter Division of Gastroenterology in [place], [place] [address] [place] [address] Lito Pollock P.A.-C. Ashkar, Motaz H, M.B.B.S., M.S. 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, Ninth Floor [address] [place] [phone] Jennyfer Santos R.N. 05/29/2025 Orders Only [facility], Ninth Floor [address] [place] [phone] Lito Pollock P.A.-C. 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, Ninth Floor [address] [place] [phone] Tanya Ivey M.D. Discharge Disposition: Home or Self Care 05/28/2025 Orders Only [facility], Ninth Floor [address] [place] [phone] Giselle Jean R.N. Transplant Stem Cell (HCC) (Primary Dx) 05/27/2025 Orders Only Department of Palliative Care in [place], [place] [address] [place] [address] Felicia Watt APRN, C.N.P., M.S.N. 05/26/[address] [facility] Transplantation and Clinical Regeneration in [place], [place] [address] [place] [address] Jessica Rousseau M.B.B.S. 05/26/2025 Clinical Communication Section of Infectious Diseases in [place], [place] [address] [place] [address] Jennifer Marx R.N. Prescreen Immunization Review 05/25/2025 2:00 PM CDT Office Visit Department of Palliative Care in [place], [place] [address] [place] [address] Felicia Watt APRN, C.N.P., M.S.N. Pain Leg Bilateral (Primary Dx); Nausea; Fatigue; Insomnia; Anxiety; Palliative Care 05/25/2025 1:45 PM CDT [facility] in [place], [place] [address] [place] [address] Ta Medrano 05/20/2025 9:30 AM CDT Office Visit [facility] Transplantation and Clinical Regeneration in [place], [place] [address] [place] [address] Lito Pollock P.A.-C. Olney, Tammy L, KARON C.N.P., D.N.P. iLda Olivas, R.N. 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 Braun, Jade L, Pharm.D., R.Ph. Transplant Bone Marrow Allogeneic (HCC) (Primary Dx) Discharge Disposition: Home or Self Care 05/20/[address] [facility] Transplantation and Clinical Regeneration in [place], [place] [address] [place] [address] Jessica Rousseau M.B.B.S. 8/7 appts 05/17/2025 1:59 PM CDT - 05/17/2025 5:26 PM CDT Hospital Encounter [facility], Ninth Floor [address] [place] [address] Renita Potts, KARON, C.N.P., D.N.P. 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 Transplantation and Clinical Regeneration in [place], [place] [address] [place] [address] Ladonna Constantino R.N. 05/17/2025 Orders Only [facility], Ninth Floor [address] [place] [address] Ladonna Constantino R.N. 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 Transplantation and Clinical Regeneration in [place], [place] [address] [place] [address] Arely Taylor R.N. Lab Monitoring (05/08/2025) 05/08/2025 10:30 AM CDT - 05/08/2025 11:59 PM CDT Hospital Encounter Department of Laboratory Medicine in [address] [phone] Lito Pollock P.A.-C. 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 Nurse Assessment (Nausea/Vomiting ) 04/29/2025 10:00 AM CDT Office Visit [facility] Transplantation and Clinical Regeneration in [place], [place] [address] [place] [address] Becky Hernandez APRN, C.N.P., D.N.P. Lito Pollock P.A.-C. 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 Transplantation and Clinical Regeneration in [place], [place] [address] [place] [phone] Becky Hernandez APRN, C.N.Jean., D.N.P. Nelli Parker, Pharm.D., R.Ph. 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 Scheduling 04/27/2025 Specialty Pharmacy [facility] [address] [place] [phone] Isabel Bautista, Pharm.D., R.Ph. 04/22/2025 10:00 AM CDT Telemedicine [facility] in [place], [place] [address] [place] [address] Becky Hernandez APRN, C.N.P., D.N.P. Analia Carter APRN C.N.P. 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 04/18/[address] [facility] Transplantation and Clinical Regeneration in [place], [place] [address] [place] [address] Becky Hernandez APRN, C.NDustin, D.N.P. Transplant Stem Cell (HCC) (Primary Dx) 04/18/2025 Clinical Communication [facility], Ninth Floor [address] [place] [phone] Jeanne Khan R.N. After Visit Question (Chronic fatigue/Leg pain) 04/18/2025 Orders Only [facility], Ninth Floor [address] [place] [address] Becky Hernandez APRN, C.NDustin, D.N.P. 04/15/2025 9:[address] [facility] Transplantation and Clinical Regeneration in [place], [place] [address] [place] [address] Becky Hernandez APRN, C.NDustin, D.N.P. 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 Med Refill 04/14/2025 Refill Division of Hematology in [place], [place] [address] [place] [address] Jessica Rousseau M.B.B.S. Med Refill 04/08/2025 11:30 AM CDT Office Visit [facility] Transplantation and Clinical Regeneration in [place], [place] [address] [place] [address] Jessica Rousseau M.B.B.S. Becky Hernandez APRN, C.N.P., D.N.P. Tara Marin RFritz, BMT-CN Karen Allen R.N., O.C.N. 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 Transplantation and Clinical Regeneration in [place], [place] [address] [place] [address] Becky Hernandez APRN, C.N.Jean., D.N.P. Bone Marrow Transplant Status (HCC) (Primary Dx); Transplant Stem Cell (HCC); Transplant Bone Marrow Allogeneic (HCC) 04/07/[address] [facility] Transplantation and Clinical Regeneration in [place], [place] [address] [place] [address] Tammy Wild RFritz Pain 04/01/[address] [facility] Transplantation and Clinical Regeneration in [place], [place] [address] [place] [address] Lucy Stout, R.NKatalina, BMT-CN, O.C.N. Nurse Assessment 04/01/[address] 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 Transplantation and Clinical Regeneration in [place], [place] [address] [place] [address] Jessica Rousseau M.B.B.SKatalina Transplant Stem Cell (HCC) (Primary Dx) 03/24/2025 9:30 AM CDT Office Visit [facility] Transplantation and Clinical Regeneration in [place], [place] [address] [place] [address] Jessica Rousseau M.B.B.S. Elise Pizarro, R.N. 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 03/24/2025 [facility] in [place], [place] [address] [place] [address] Ta Medrano 03/24/[address] [facility] Transplantation and Clinical Regeneration in [place], [place] [address] [place] [address] Jessica Rousseau M.B.B.S. Med Refill 03/23/2025 2:00 PM CDT Virtual Visit [facility] Transplantation and Clinical Regeneration in [place], [place] [address] [place] [address] Jessica Rousseau M.B.B.S. Sis Miller M.S.W., L.I.C.S.W. 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 Transplantation and Clinical Regeneration in [place], [place] [address] [place] [address] Jessica Rousseau M.B.B.S. Communication (D100 Reschedule) 03/20/2025 10:25 AM CDT - 03/20/2025 11:59 PM CDT Hospital Encounter Department of Radiology, [facility], in [place], [place] [address] [place] [address] Jessica Rousseau M.B.B.S. 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 Transplantation and Clinical Regeneration in [place], [place] [address] [place] [address] Jessica Rousseau M.B.B.S. Lucy Stout, R.N., BMT-CN, O.C.N. 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 Transplantation and Clinical Regeneration in [place], [place] [address] [place] [address] Saima White Transplant Bone Marrow Allogeneic (HCC) (Primary Dx) from Last 3 Months Immunizations Immunization Administration Dates Next Due 4vHPV (discontinued) 11/08/2007,06/27/2007,04/26 DTaP-IPV/Hib (Pentacel) 06/10/2025 HZV (ZOSTAVAX) 08/09/2023(Deferred: Patient ill today) HepA Adult 06/10/2025 HepB Adult 03/07/2001,10/31/2000,09/19/2000 HepB Adult (HEPLISAV-B) 06/10/2025 Influenza TIV (IM) 09/02/2012, 1,10/19/2003,2001,01/22/2002 Influenza, Seasonal, Injectable 10/19/2003,09/17,01/22/2002 Influenza, Unspecified 09/02/2012,08/14/2011 MCV4 (Menactra)(Discontinued) 04/26/2007 MENACWY-TT (MENQUADFI)(MCV4) 06/10/2025 MMR 04/25/2001,03/07/2001 PCV20 06/10/2025 RZV (SHINGRIX) 06/10/2025 SARS-COV-2 (COVID-19) - MODERNA(Discontinued) 10/31/2021,03/30/2021,03/02/2021 Td (Adult), adsorbed 07/10/2003 Tdap 09/02/2012 influenza vaccine quad (FLUZONE/FLUARIX) (6 months and older)(PF) 09/26/2019 Family History Medical History Relation Name Comments Cystic fibrosis Brother 1 Anxiety disorder Brother 2 shena martinez Depression Brother 2 shena vidaleser Psychiatric Maternal Grandfather silvia merchant Breast cancer Maternal Grandmother nancy Psychiatric Maternal Grandmother nancy Anxiety disorder Mother gabrielle martinez Depression Mother gabrielle martinez Hypertension Mother gabrielle martinez Skin cancer Paternal Grandfather Berkley vega No Known Problems Son Rashid Relation [...] things needed for daily living? No 06/12/2025 [employer] Answer Date Recorded In the past 12 months has e [employer], gas, oil, or water company threatened to shut off services in your home? No 06/12/2025 Depression Answer Date Recor ded PHQ-9 Total Score (max 27) 2 12/10 Housing Stability Answer Date Recorded What is your living situation today? I have a [facility] place to live 06/12/2025 Education Answer Date Recorded What is the highest level of school you have completed or the highest degree you have received? 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 [address] [place] [phone] 06/15/2025 9:45 AM CDT Hospital Encounter Outpatient Procedure Center in [address] [phone] Jessica Rousseau M.B.B.S. [address] [place] [phone] 06/15/2025 2:00 PM CDT [facility] [address] [phone] Jessica Rousseau M.B.B.S. [address] [place] [phone] 06/24/2025 12:30 PM CDT Clinical Communication Virtual Review in [place], [place] 200 [place] [phone] 06/25/2025 8:10 AM CDT Lab Department of Laboratory Medicine and Pathology, [facility], in [address] [phone] Tessa Jesus, KARON, C.N.P., D.N.P. [address] [place] [phone] 06/25/2025 9:00 AM CDT Office Visit [facility] in [place], [place] [address] [place] [address] Tessa Jesus APRN, C.N.P., D.N.P. [address] [place] [phone] 06/25/2025 9:30 AM CDT Nurse Only [facility] in [place], [place] [address] [place] [address] Tessa Jesus APRN, C.N.P., D.N.P. [address] [place] [phone] 06/25/2025 10:30 AM CDT Office Visit [facility] Transplantation and Clinical Regeneration in [place], [place] [address] [place] [address] Jessica Rousseau M.B.B.S. [address] [place] [phone] 06/25/2025 12:00 PM CDT Appointment Department of Radiology, [facility], in [place], [place] [address] [place] [phone] Arlen James APRN, C.N.P., D.N.P. [address] [place] [phone] 06/25/2025 12:40 PM CDT Appointment Department of Cardiovascular Diseases in [place], [place] [address] [place] [address] Analia Carter APRN, C.N.P. [address] [place] [phone] Discharge Disposition: Home or Self Care 06/26/2025 10:00 AM CDT Telemedicine Department of Palliative Care in [place], [place] [address] [place] [phone] Isabel Sellers M.D. [address] [place] [phone] Debbie Shay M.D. [address] [place] [phone] 08/12/2025 10:40 AM CDT Nurse Only Section of Infectious Diseases in [place], [place] [address] [place], [place] [phone] Jessica Rousseau M.B.B.S. [address] [place], [place] [phone] Health Maintenance Due Date Last Done Comments Dental Prophylaxis 1989 Visit: Medicare Annual Wellness 1990 Dilated Eye Exam 11/05/2009 05/06/2009 COVID-19 Vaccine (2023- 5 season) 2024 10/31/2021, 03/30/2021, 03/02/2021 Cervical/Vaginal Cancer Screening 10/15/2024 10/15/2019, 10/15/2019, 11/25/2013 Controlled Substance Agreement 04/05/2025 Controlled Substance Monitor ing (UDS) 04/05/2025 PEG assessment for Opioid therapy 04/05/2025 Depression Monitoring (PHQ-9) 04/09/2025 12/10/2024 Vaccine Post BMT: HPV (Garda jaylen) 3 Doses (#1) 06/09/2025 Vaccine Post BMT: CpG (Hepli fozia) 2 Doses (#2) 07/07/2025 06/10/2025 Urinalysis 07/09/2025 01/09/2025, 10/19, 06/18/2019 Vaccine Post BMT: DTaP 3 dos es (#2) 08/04/2025 06/10/2025, 09/02/2012, 07/10/2003 Vaccine Post BMT: Hib 3 Dose s (#2) 08/04/2025 06/10/2025 Vaccine Post BMT: IPV 3 Dose s (#2) 08/04/2025 06/10/2025 Vaccine Post BMT: Meningococ lolly (MenQuadfi, age 2+) 2 Doses (#2) 08/04/2025 06/10/2025, 04/26/2007 Vaccine Post BMT: Pneumococc al (PCV20, age 2yrs+) 4 Doses (#2) 08/04/2025 06/10/2025 Vaccine Post BMT: Zoster (Shingrix) 2 Doses (#2) 08/04/2025 06/10/2025 Influenza Vaccine (#1) 2025 , 09/02/2012, 09/02/2012, Additional history exists Vaccine Post BMT: Hepatitis A 2 Doses (#2) 12/09/2025 06/10/2025 Controlled Substance Monitor ing (PHQ-9) 12/10/2025 12/10/2024 Generalized Anxiety (HERMINIO-7) 03/23/2026 03/23/2025 Spirometry with DLCO or PFT 03/23/2026 03/23/2025, 1 01/06/2024 Lipid (Cholesterol) Screening 03/24/2026, 06/23/2024, 09/08/2022 Vitamin D Testing 03/24/2026 03/24/2025, , 03/13/2022 Fasting Glucose for Diabetes Screening 06/13/2026 06/13/2025, 06/12/2025, 06/07/2025, Additional history exists Hepatitis B Screening Discontinued 12/12/2018 Hepatitis C Screening Completed 12/12/2018 Depression Monitoring (PHQ-9 for quality tracking) Completed 03/23/2025 Opioid Risk Tool (ORT) Completed 04/21/2025 Glucose Test for Med Monitoring Discontinued 06/13/2025, 06/12/2025, 06/07/2025, Additional history exists Procedures Procedure Name Priority Date/Time Associated Diagnosis Comments BASIC METABOLIC PANEL, S/P Routine 06/13/2025 9:13 AM CDT CBC WITH DIFFERENTIAL, B Routine 06/13/2025 9:[address] ABDOMEN PELVIS WITH IV CONTRAST RAD - Routine (most inpatients and all outpatients) 06/12/2025 6:48 PM CDT COMPREHENSIVE METABOLIC PANEL, S/P Routine 06/12/2025 5:37 PM CDT CBC NO CALL BACK, REFLEX T/S Routine 06/12/2025 5:37 PM CDT ECG Routine 06/07/2025 12:15 PM CDT Transplant Stem Cell (HCC) Pain Pleuritic Chest C-REACTIVE PROTEIN, HIGH SENSITIVITY, S/P Routine 06/07/2025 12:12 PM CDT Transplant Stem Cell (HCC) Pain Pleuritic Chest NT-PRO B-TYPE NATRIURETIC PEPTIDE (BNP), S Routine 06/07/2025 12:12 PM CDT Transplant Stem Cell (HCC) Pain Pleuritic Chest TROPONIN T, 5TH GEN, P Routine 12:12 PM CDT Transplant Stem Cell (HCC) Pain Pleuritic Chest MAGNESIUM, S Routine 06/07/2025 12:12 PM CDT Transplant Stem Cell (HCC) COMPREHENSIVE METABOLIC PANEL, S/P Routine 06/07/2025 12:12 PM CDT Transplant Stem Cell (HCC) CBC NO CALL BACK, REFLEX T/S Routine 06/07/2025 12:12 PM CDT Transplant Stem Cell (HCC) CT CHEST ANGIOGRAM AND PULMONARY ARTERIES WITH IV CONTRAST RAD - Routine (most inpatients and all outpatients) 06/05/2025 9:01 AM CDT Transplant Stem Cell (HCC) MAGNESIUM, S Routine 06/03/2025 9:41 AM CDT Transplant Stem Cell (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) LACTATE DEHYDROGENASE (LD), S Routine 06/03/2025 9:41 AM CDT Transplant Stem Cell (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) COMPREHENSIVE METABOLIC PANEL, S/P Routine 06/03/2025 9:41 AM CDT Transplant Stem Cell (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) CBC WITH DIFFERENTIAL, B Routine 06/03/2025 9:41 AM CDT Transplant Stem Cell (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) CMV DNA DETECT/QUANT, P Routine 06/03/2025 9:41 AM CDT Transplant Stem Cell (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) SURGICAL PATHOLOGY Routine 06/01/2025 1: 48 PM CDT GASTROENTEROLOGY IMAGE EXAM Routine 06/01/2025 1:15 PM CDT UPPER GI ENDOSCOPY Routine 06/01/2025 1: 11 PM CDT Transplant Stem Cell (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) EGD (ESOPHAGOGASTRODUODENO SCOPY) Routine 06/01/2025 1:11 PM CDT Transplant Stem Cell (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) BASIC METABOLIC PANEL, S/P Routine 05/29/2025 5:18 [...] Examination Following Bone Marrow Transplant Corticosteroid Treatment Alf Systemic CD4 T-CELL COUNT, B Routine 04/29/2025 9 :42 AM CDT 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) Abnormal Finding Of Blood Chemistry Unspecified Follow Up Examination Following Bone Marrow Transplant Corticosteroid Treatment Alf Systemic CHIMERISM TRANSPLANT SORTED CELLS Routine 04/29/2025 9:42 AM CDT 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) Abnormal Finding Of Blood Chemistry Unspecified Follow Up Examination Following Bone Marrow Transplant Corticosteroid Treatment Vacuum Cleaner Mechanic Systemic CMV DNA DETECT/QUANT, P Routine 04/29/2025 9:42 AM CDT Transplant Stem Cell ([facility]) LACTATE DEHYDROGENASE (LD), S Routine 04/29/2025 9:41 AM CDT Transplant Stem Cell ([facility]) SODIUM, S/P Routine 04/29/2025 9:41 AM CDT Transplant Stem Cell ([facility]) POTASSIUM, S/P Routine 04/29/2025 9:41 AM CDT Transplant Stem Cell ([facility]) MAGNESIUM, S Routine 04/29/2025 9:41 AM CDT Transplant Stem Cell ([facility]) GLUCOSE, FASTING, S/P Routine 04/29/2025 9:41 AM CDT Transplant Stem Cell ([facility]) Hyperglycemia CREATININE WITH EGFR, S/P Routine 04/29/2025 9:41 AM CDT Transplant Stem Cell ([facility]) CBC NO CALL BACK, REFLEX T/S Routine 04/29/2025 9:41 AM CDT Transplant Stem Cell ([facility]) CALCIUM, TOT, S/P Routine [...] Examination Following Bone Marrow Transplant Corticosteroid Treatment Vacuum Cleaner Mechanic Systemic SODIUM, S/P Routine 04/08/2025 11:10 AM CDT 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) Abnormal Finding Of Blood Chemistry Unspecified Follow Up Examination Following Bone Marrow Transplant Corticosteroid Treatment Vacuum Cleaner Mechanic Systemic POTASSIUM, S/P Routine 04/08/2025 11:10 AM CDT 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) Abnormal Finding Of Blood Chemistry Unspecified Follow Up Examination Following Bone Marrow Transplant Corticosteroid Treatment Vacuum Cleaner Mechanic Systemic MAGNESIUM, S Routine 04/08/2025 11:10 AM CDT 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) Abnormal Finding Of Blood Chemistry Unspecified Follow Up Examination Following Bone Marrow Transplant Corticosteroid Treatment Vacuum Cleaner Mechanic Systemic GLUCOSE, FASTING, S/P Routine 04/08/2025 11:10 AM CDT 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) Abnormal Finding Of Blood Chemistry Unspecified Follow Up Examination Following Bone Marrow Transplant Corticosteroid Treatment Alf Systemic CREATININE WITH EGFR, S/P Routine 04/08/2025 11:10 AM CDT 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) Abnormal Finding Of Blood Chemistry Unspecified Follow Up Examination Following Bone Marrow Transplant Corticosteroid Treatment Alf Systemic CBC NO CALL BACK, REFLEX T/S Routine 04/08/2025 11:10 AM CDT 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) Abnormal Finding Of Blood Chemistry Unspecified Follow Up Examination Following Bone Marrow Transplant Corticosteroid Treatment Alf Systemic CALCIUM, TOT, S/P Routine 04/08/2025 11:10 AM CDT 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) Abnormal Finding Of Blood Chemistry Unspecified Follow Up Examination Following Bone Marrow Transplant Corticosteroid Treatment Vacuum Cleaner Mechanic Systemic BUN (BLOOD UREA NITROGEN), S/P Routine 04/08/2025 11:10 AM CDT 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) Abnormal Finding Of Blood Chemistry Unspecified Follow Up Examination Following Bone Marrow Transplant Corticosteroid Treatment Alf Systemic BILIRUBIN, TOT, S/P Routine 04/08/2025 11:10 AM CDT 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) Abnormal Finding Of Blood Chemistry Unspecified Follow Up Examination Following Bone Marrow Transplant Corticosteroid Treatment Alf Systemic ASPARTATE AMINOTRANSFERASE (AST), S/P Routine 04/08/2025 11:10 AM CDT 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) Abnormal Finding Of Blood Chemistry Unspecified Follow Up Examination Following Bone Marrow Transplant Corticosteroid Treatment Vacuum Cleaner Mechanic Systemic ALANINE AMINOTRANSFERASE (ALT), S/P Routine 04/08/2025 11:10 AM CDT 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) Abnormal Finding Of Blood Chemistry Unspecified Follow Up Examination Following Bone Marrow Transplant Corticosteroid Treatment Vacuum Cleaner Mechanic Systemic ALKALINE PHOSPHATASE, S/P Routine 04/08/2025 11:10 AM CDT 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) Abnormal Finding Of Blood Chemistry Unspecified Follow Up Examination Following Bone Marrow Transplant Corticosteroid Treatment Vacuum Cleaner Mechanic Systemic ALBUMIN, S/P Routine 04/08/2025 11:10 AM CDT 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) Abnormal Finding Of Blood Chemistry Unspecified Follow Up Examination Following Bone Marrow Transplant Corticosteroid Treatment Alf Systemic CMV DNA DETECT/QUANT, P Routine 04/08/2025 11:10 AM CDT 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) Abnormal Finding Of Blood Chemistry Unspecified Follow Up Examination Following Bone Marrow Transplant Corticosteroid Treatment Vacuum Cleaner Mechanic Systemic HEMOGLOBIN A1C, B Routine 03/24/2025 9:3 [...] Examination Following Bone Marrow Transplant Corticosteroid Treatment Alf Systemic THYROID FUNCTION CASCADE, S Routine 03/24/2025 [...] BCR/ABL Positive Not Having Achieved Remission (HCC) URINALYSIS WITH MICROSCOPIC Routine 01/09/2025 7:30 AM SALESPERSON [employer] Transplant Bone Marrow Allogeneic (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 Hemoglobin 10.8(L) 11.6 - 15.0 g/dL 06/13/2025 [...] us Alok Russ APRN, C.N.P., D.N.P. LAB GALILEOO D ADD-ON Final Result [facility] [address] [place] [address], [facility] DTL [facility] [address] [place] [address] [facility] [address] [place] [address] * (ABNORMAL) Basic Metabolic Panel (06/13/2025 9:13 AM CDT) Only the most recent of2 resultswithin the time period is included. [facility] Potassium, S 3.8 3.6 - 5.2 mmol/L [...] D.N.P. LAB BLOO D ADD-ON Final Result [facility] [address] [place] [address], [facility] DTL [facility] [address] [place] [address] * CT Abdomen Pelvis with IV Contrast (06/12/2025 6:48 PM CDT) Only the most recent of2 resultswithin the time period is included. Anatomical Region Laterality Modality Abdomen, Pelvis, Abdominal [...] colonic stoolburden. Renita Potts APRN, C.N.P., D.N.P. IM CT PROC EDURES Final Result * (ABNORMAL) CBC no call back, reflex T/S HGB <8 (06/12/2025 5:37 PM CDT) Only the most recent of9 resultswithin the time period is included. Hemoglobin 11.8 11.6 - 15.0 g/dL 06/12/2025 [...] LAB BLOO D NON ADD-ON Final Result [facility] [address] [place] [address], [facility] DTL [facility] [address] [place] [address] [place] [address] * Comprehensive Metabolic Panel (06/12/2025 5:37 PM CDT) Only the most recent of6 resultswithin the time period is included. Potassium, S 5.0 3.6 - 5.2 mmol/L [...] D.N.P. LAB BLOO D ADD-ON Final Result [facility] [address] [place] [address], [facility] [address] [place] [address] * ECG 12 Lead (06/07/2025 12:15 PM CDT) Ventricular Rate ECG/Min [address] Interval 172 ms MUSE QRSD Interval 78 ms MUSE QT Interval 350 ms MUSE QTC Interval [address] 55 [address] 11 degrees MUSE T [address] 38 degrees MUSE 06/07/2025 12:1 5 PM [...] ORDER JANES Final Result Performing Organization Address [facility] Co de Phone Number MUSE NA * NT-Pro B-Type Natriuretic Peptide (BNP) (06/07/2025 [...] BLOOD ADD-ON Final Result Performing Organization Address City/[facility]/ZIP Co de Phone Number [facility] [address] [place] [address], [facility] DTL [facility] [address] [place] [address] * (ABNORMAL) C-Reactive Protein, High Sensitivity (06/07/2025 [...] BLOOD ADD-ON Final Result Performing Organization Address [facility] [place] [address] * Troponin T, 5th Generation (06/07/2025 12:12 PM CDT) Troponin T, 5th gen <6 <=10 ng/L 06/07/2025 1:04 PM CDT DTL Blood (Blood, Venous) 06/07/2025 12:12 PM CDT 06/07/2025 12:19 PM CDT us Analia Gamez APRN, C.N.P. LAB BLOOD ADD-ON Final Result Performing Organization Address [facility] [place] [address] * Magnesium (06/07/2025 12:12 PM CDT) Only the most recent of11 resultswithin the time period is included. Magnesium, S 2.2 1.7 - 2.3 mg/dL 06/07/2025 2:36 PM CDT DTL Blood (Blood, Venous) 06/07/2025 12:12 PM CDT 06/07/2025 12:19 PM CDT us Analia Bush Vera FUN HOUSE ATTENDANT, C.N.P. LAB BLOOD ADD-ON Final Result [facility] [address] [place] [address], [place] DTL [facility] [address] [place] [address] * CT Chest Angiogram and Pulmonary Arteries [...] hepatic steatosis. Jessica Avila APRN, C.N.P., M.S.N. [facility] CT PROC EDURES Final Result * CMV DNA Detect / Quant, Plasma (06/03/2025 9:41 AM CDT) Only the most recent of7 resultswithin the time period is included. [facility] CMV DNA Detect/Quant, P Undetected Undetected IU/mL 06/03/2025 11:07 PM CDT [facility] Comment: Result in log IU/mL is Undetected. ----ADDITIONAL INFORMATION---- The quantification range of this assay is 35 to 10,000,000 IU/mL (1.54 log to 7.00 log IU/mL). Testing was performed using the lucrecia CMV test ([employer] Blood (Blood, Venous) 06/03/2025 9:41 AM CDT 06/03/2025 12:05 PM CDT us Lito Pollock P.A.-C. LAB MICROBIOLOGY - BLOOD ORDER JANES Final Result Performing Organization Address City/[facility]/ZIP Co de Phone Number [facility] [address] [place] [address] [facility] [address] [place] [address] [place] [place] [address] * LD (Lactate Dehydrogenase) (06/03/2025 9:41 AM CDT) Only the most recent of7 resultswithin the time period is included. [facility] LD 152 122 - 222 U/L 06/03/2025 11:04 AM CDT DTL Blood (Blood, Venous) 06/03/2025 9:41 AM CDT 06/03/2025 10:44 AM CDT us Lito Pollock P.A.-C. LAB BLOOD NON ADD-ON Final Res ult Performing Organization Address City/[facility]/ZIP Co de Phone Number [facility] [address] [place] [address], [facility] DTL [facility] [address] [place] [address] * Surgical Pathology (06/01/2025 1:48 PM CDT) [facility] 06/02/2025 1:48 PM CDT DTL Report electronically [...] submitted en toto in cassette A1. Grossed byDeviJD. B: Received in formalin labeled with the patient's name, medical record number, and stomach, random sites are five pale emerson-pinkirreg ular soft tissues, ranging from 0.2-0.4 cm in greatest dimension. The specimens are submitted en toto in cassette B1. Grossed byDeviJD. C: Received in formalin labeled with the patient's name, medical record number, and esophagus, random sites are three pink-transluc ent irregular soft tissues, ranging from 0.2-0.3 cm in greatest dimension. The specimens are submitted en toto in cassette C1.Grossed by [employer]. 06/02/2025 1:48 PM CDT DTL Interpretation FINAL DIAGNOSIS A. Duodenum, random sites, endoscopic biopsy: Small bowel mucosa without diagnostic abnormality. Villi and plasma cells are present. No evidence of Whipple's disease, celiac sprue, or Giardia. No definite evidence for [id number]-[id number]-wm sease. B. Stomach, random sites, endoscopic biopsy: Antral and fundic mucosa with patchy mild reactive gastropathy. No H pylori. No dysplasia. No definite evidence for igmww-ztxc-wf sease. C. Esophagus, random sites, endoscopic biopsy: Squamous esophageal mucosa without diagnostic abnormality. No intraepitheli al eosinophils. No definite evidence for kykmg-fanq-bq sease. Digital imaging was used in the diagnostic assessment of this case. 06/02/2025 1:48 PM CDT DTL Biopsy (Duodenum) 06/01/2025 1:48 PM CDT Biopsy (Stomach) 06/01/2025 1:50 PM CDT Biopsy (Esophagus) 06/01/2025 1:51 PM CDT Jeaneth DowlingB.S., M.S. LAB SURG PATH CARLOS AMAYA Final Result [facility] [address] [place] [address], [facility] DTL [address] [place] [address] * Upper GI endoscopy-Gastroenterology Image Exam (06/01/2025 1:15 PM CDT) 06/01/2025 1:11 PM CDT Narrative IIMS - 06/01/2025 2:04 PM CDT This order has been created and auto-finalized to support the import of images acquired without order. The clinical documentation to support these images can be found on the encounter that produced images. 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 [...] Pollock P.A.-C. GI PROCEDURE ORDERABLES Final Result Performing Organization Address [facility] Co de Phone Number [facility] * Lactate (05/28/2025 8:59 PM CDT) Lactate, P 1.8 0.5 - 2.2 mmol/L 05/28/2025 9:54 PM CDT DTL Blood (Blood, Venous) 05/28/2025 8:59 PM CDT 05/28/2025 9:21 PM CDT us Crista Jay M.D., M.P.H. LAB BLOOD NON ADD- ON Final Result Performing Organization Address [facility] Co de Phone Number [facility] [address] [place] [address] * Phosphorus Inorganic (05/28/2025 4:31 PM CDT) Phosphorus (Inorganic), S 4.4 2.5 - 4.5 mg/dL 05/28/2025 7:46 PM CDT DTL Blood (Blood, Venous) 05/28/2025 4:31 PM CDT 05/28/2025 4:43 PM CDT Renita Potts APRN, C.N.P., D.N.P. LAB BLOOD A DD-ON Final Result Performing Organization Address [facility] Co de Phone Number [facility] [address] [place] [address], [facility] 200 [place] [address] * BUN (Blood Urea Nitrogen) (05/20/2025 8:48 AM CDT) Only the most recent of6 resultswithin the time period is included. BUN (Blood Urea Nitrogen), S 9 6 - 21 mg/dL 05/20/2025 10:03 AM CDT DTL Blood (Blood, Venous) 05/20/2025 8:48 AM CDT 05/20/2025 9:27 AM CDT Lito Pollock P.A.-C. LAB BLOOD ADD-ON Final Result Performing Organization Address City/[facility]/[place] [address] * ALT (Alanine Aminotransferase) (05/20/2025 8:48 AM CDT) Only the most recent of6 resultswithin the time period is included. Alanine Aminotransferase (ALT), S 33 7 - 45 U/L 05/20/2025 10:03 AM CDT DT Blood (Blood, Venous) 05/20/2025 8:48 AM CDT 05/20/2025 9:27 AM CDT Lito Pollock P.A.-C. LAB BLOOD ADD-ON Final Result Performing Organization Address City/[facility]/ZIP Co de Phone Number [facility] [address] [place] [address] * AST (Aspartate Aminotransferase) (05/20/2025 8:48 AM CDT) Only the most recent of6 resultswithin the time period is included. Aspartate Aminotransferase (AST), P 26 8 - 43 U/L 05/20/2025 9:22 AM CDT METH Blood (Blood, Venous) 05/20/2025 8:48 AM CDT 05/20/2025 9:01 AM CDT Lito Pollock P.A.-C. LAB BLOOD ADD-ON Final Result [facility] [address] [place] [address], [facility] METH [facility] [address] [place] [address] * Sodium (05/20/2025 8:48 AM CDT) Only the most recent of6 resultswithin the time period is included. Sodium, S 140 135 - 145 mmol/L 05/20/2025 10:03 AM CDT DTL Blood (Blood, Venous) 05/20/2025 8:48 AM CDT 05/20/2025 9:27 AM CDT Lito Pollock P.A.-C. LAB BLOOD ADD-ON Final Result Performing Organization Address City/[facility] Co de Phone Number [facility] [address] [place] [address], [facility] [address] [place] [address] * Potassium (05/20/2025 8:48 AM CDT) Only the most recent of6 resultswithin the time period is included. Potassium, S 4.0 3.6 - 5.2 mmol/L 05/20/2025 10:03 AM CDT DTL Blood (Blood, Venous) 05/20/2025 8:48 AM CDT 05/20/2025 9:27 AM CDT Lito Pollock P.A.-C. LAB BLOOD ADD-ON Final Result Performing Organization Address City/[facility]/ZIP Co de Phone Number [facility] [address] [place] [address], [facility] [address] [place] [address] * Alkaline Phosphatase (05/20/2025 8:48 AM CDT) Only the most recent of6 resultswithin the time period is included. Alkaline Phosphatase, S 103 35 - 104 U/L 05/20/2025 10:03 AM CDT DTL Blood (Blood, Venous) 05/20/2025 8:48 AM CDT 05/20/2025 9:27 AM CDT Lito Pollock P.A.-C. LAB BLOOD ADD-ON Final Result Performing Organization Address [facility] de Phone Number [facility] [address] [place] [address] * (ABNORMAL) Glucose, Fasting (05/20/2025 8:48 AM CDT) Only the most recent of6 resultswithin the time period is included. Glucose, P 158(H) 70 - 100 mg/dL 05/20/2025 10:00 AM CDT DTL Last Intake 1 hr 05/20/2025 9:27 AM CDT DTL Blood (Blood, Venous) 05/20/2025 8:48 AM CDT 05/20/2025 9:27 AM CDT Lito Pollock P.A.-C. LAB BLOOD NON ADD-ON Final Res ult Performing Organization Address [facility] Co de Phone Number [facility] [address] [place] [address] * Creatinine with Estimated GFR (05/20/2025 8:48 AM CDT) Only the most recent of6 resultswithin the time period is included. Creatinine 0.90 0.59 - 1.04 mg/dL 05/20/2025 10:03 AM CDT DTL Estimated GFR (eGFR) 85 >=60 mL/min/BSA 05/20/2025 10:03 AM CDT DTL Comment: Estimated GFR calculated using the 2020 CKD_EPI creatinine equation. Blood (Blood, Venous) 05/20/2025 8:48 AM CDT 05/20/2025 9:27 AM CDT Lito Pollock P.A.-C. LAB BLOOD ADD-ON Final Result [facility] 200 [place] [address], [facility] [address] [place] [address] * Calcium, Total (05/20/2025 8:48 AM CDT) Only the most recent of6 resultswithin the time period is included. Calcium, Total, S 9.2 8.6 - 10.0 mg/dL 05/20/2025 10:03 AM CDT DTL Blood (Blood, Venous) 05/20/2025 8:48 AM CDT 05/20/2025 9:27 AM CDT Lito Pollock P.A.-C. LAB BLOOD ADD-ON Final Result Performing Organization Address City/[facility]/ZIP Co de Phone Number [facility] [address] [place] [address], [facility] [address] [place] [address] * Bilirubin, Total (05/20/2025 8:48 AM CDT) Only the most recent of6 resultswithin the time period is included. Bilirubin, Total, P 0.3 0.0 - 1.2 mg/dL 05/20/2025 9:22 AM CDT METH Blood (Blood, Venous) 05/20/2025 8:48 AM CDT 05/20/2025 9:01 AM CDT Lito Pollock P.A.-C. LAB BLOOD ADD-ON Final Result [facility] [address] [place] [address], [facility] METH [facility] [address] [place] [address] * Albumin (05/20/2025 8:48 AM CDT) Only the most recent of6 resultswithin the time period is included. [facility] Albumin, S 4.2 3.5 - 5.0 g/dL 05/20/2025 10:03 AM CDT DT Blood (Blood, Venous) 05/20/2025 8:48 AM CDT 05/20/2025 9:27 AM CDT Lito Pollock P.A.-C. LAB BLOOD ADD-ON Final Result Performing Organization Address City/[facility]/ZIP Co de Phone Number [facility] [address] [place] [address] * Bacteria / Celso Culture, Blood #2 (05/17/2025 4:04 PM CDT) Only the most recent of2 resultswithin the time period is included. [facility] Bacteria/Yulia da Culture, Blood No growth after 5 days of incubation. 05/22/2025 5:02 PM CDT [facility] Blood (Blood, Peripheral Draw) 05/17/2025 4:04 PM CDT 05/17/2025 4:50 PM CDT Comment:Specimen Source Site : Blood Renita Potts APRN, C.N.P. , D.N.P. LAB MICROBIOLOGY - GENERAL ORDERABLES Final Result Performing Organization Address City/[facility]/ZIP Co de Phone Number [facility] [address] [place] [address] * Lactate for Sepsis with Reflex (05/17/2025 3:43 PM CDT) [facility] Lactate, P 1.6 0.5 - 2.2 mmol/L 05/17/2025 4:55 PM CDT DTL Blood (Blood, Venous) 05/17/2025 3:43 PM CDT 05/17/2025 4:41 PM CDT Renita Potts APRN, C.N.P., D.N.P. LAB BLOOD N ON ADD-ON Final Result Performing Organization Address City/[facility]/ZIP Co de Phone Number [facility] [address] [place] [address], [facility] [address] [place] [address] * Clostridioides (Clostridium) Difficile Toxin, Molecular Detection, PCR, Feces (05/17/2025 2:42 PM CDT) C. difficile Toxin, F Negative Negative 05/17/2025 3:59 PM CDT DTL Stool (Stool) 05/17/2025 2:4 2 PM CDT 05/17/2025 3:13 PM CDT Tiffani Leroy APRN, C.N.P., D.N.P. LAB MICROBIOLOGY - GENERAL ORDERABLES Final Result Performing Organization Address [facility] Co de Phone Number [facility] [address] [place] [address], [facility] [address] [place] [address] * Chimerism Transplant Sorted Cells (04/29/2025 9:42 AM CDT) Specimen Type Peripheral blood 05/01 12:05 PM CDT DTL Interpretation Peripheral blood, chimerism analysis: CD3-positive T-cells: The CD3-positive fraction contains approximately 80% donor DNA and approximately 20% recipient DNA. ZS92-sbgpozcy myeloid cells: The KK15-zznwtxbp fraction contains approximately 100% donor DNA and [...] purity of 95% or greater. Markers analyzed: [id number], [id number], FGA, SE33, vWA, D21S11, [id number], [id number], Z06P160, D18S51, E1V173, F5I5461, CSF1PO, M9K528, K80B325, Z94W889, TPOX, G83A885, Q7H341 and [id number] 05/01/2025 12:05 PM CDT DTL Comment: ----ADDITIONAL INFORMATION---- Method summary - Chimerism: Genomic DNA was extracted and the specimen evaluated for the percentages of donor and recipient DNA using a PCR-based method that amplifies several highly polymorphic short tandem repeats (see [facility] Interpretive Handbook for method details). This test was developed and its performance characteristics determined by [facility] in a manner consistent with CLIA requirements. This test has not been cleared or approved by the U.S. Food and Drug Administration. Blood (Blood, Venous) 04/29/2025 9:42 AM CDT 04/29/2025 10:38 AM CDT Jessica Barnes LAB GENETIC TESTING Final Result [facility] [address] [place] [address], [facility] DTL [address] [place] [address] * BCR/ABL1, p210, mRNA Detection, Reverse Asphalt Blender-PCR (RT-PCR), Quantitative, Monitoring Chronic Myeloid Leukemia (CML) [...] level was evaluated using a quantitative, reverse petroleum production engineer PCR. The analytical sensitivity of this assay [...] all possible fusion forms. Please contact the [facility] at [phone] with questions or if additional testing is required. See the [facility] Interpretive Handbook for method details. The [...] developed and its performance characteristics determined by [facility] in a manner consistent with CLIA requirements. This test has not been cleared or approved by the U.S. Food and Drug Administration. Blood (Blood, Venous) 04/29/2025 9:42 AM CDT 04/29/2025 10:39 AM CDT Jessica Barnes LAB BLOOD NON ADD-ON Final Result [facility] [address] [place] [address], [facility] DTL [address] [place] [address] * (ABNORMAL) CD4 Count for Immune Monitoring [...] reagent. Its performance characteristics were determined by [facility] in a manner consistent with CLIA requirements. This test has not been cleared or approved by the U.S. Food and Drug Administration. Blood (Blood, Venous) 04/29/2025 9:42 AM CDT 04/29/2025 11:38 AM CDT Jessica LiconaSKatalina LAB BLOOD ADD-ON Final Res ult Performing Organization Address [facility]/ZIP Co de Phone Number [facility] [address] [place] [address] [facility] [address] [place] [address] [place] [address] * EBV DNA Detect/Quant (03/24/2025 9:30 AM CDT) Only the most recent of2 resultswithin the time period is included. [facility] EBV DNA Detect/Quant, P Undetected Undetected IU/mL 03/24/2025 6:41 PM CDT [facility] Comment: Result in log IU/mL is Undetected. ----ADDITIONAL INFORMATION---- The quantification range of this assay is 35 to 100,000,000 IU/mL (1.54 log to 8.00 log IU/mL). Testing was performed using the lucrecia EBV test ([employer] Blood (Blood, Venous) 03/24/2025 9:30 AM CDT 03/24/2025 11:31 AM CDT us Jessica LiconaSKatalina LAB MICROBIOLOGY - BLOOD O RDERABLES Final Result Performing Organization Address [facility] de Phone Number [facility] [address] [place] [address] [facility] [address] [place] [address] [place] [address] * Immunoglobulins (IgG, IgA, and IgM) (03/24/2025 9:30 AM CDT) [facility] Immunoglobulin A (IgA), S 153 61 - 356 mg/dL 03/24/2025 5:42 PM CDT [facility] Immunoglobulin M (IgM), S 43 37 - 286 mg/dL 03/24/2025 5:47 PM CDT [facility] Immunoglobulin G (IgG), S 1120 767 - 1590 mg/dL 03/24/2025 5:42 PM CDT [facility] Blood (Blood, Venous) 03/24/2025 9:30 AM CDT 03/24/2025 11:37 AM CDT Jessica DowlingB.S. LAB BLOOD ADD-ON Final Res ult [facility] [address] [place] [address] [facility] [address] [place] [address] * Hemoglobin A1c (03/24/2025 9:30 AM CDT) Pathologist [facility] Hemoglobin A1c, B 4.9 4.0 - 5.6 % 03/24/2025 10:50 AM CDT DT Blood (Blood, Venous) 03/24/2025 9:30 AM CDT 03/24/2025 9:41 AM CDT us Jessica DowlingB.S. LAB BLOOD ADD-ON Final Res ult Performing Organization Address City/[facility] Co de Phone Number [facility] [address] [place] [address], [facility] [address] [place] [address] * (ABNORMAL) Lipid Panel (03/24/2025 9:29 AM CDT) Triglycerides 255(H) mg/dL 03/24/2025 10:28 AM CDT DTL Comment: ----REFERENCE VALUE---- Normal: <150 mg/dL Borderline [...] CDT 03/24/2025 9:47 AM CDT us Jessica DowlingB.S. LAB BLOOD ADD-ON Final Res ult Performing Organization Address City/[facility]/ZIP Co de Phone Number [facility] [address] [place] [address], [facility] DTL [facility] [address] [place] [address] * Thyroid Function [place] (03/24/2025 9:29 AM CDT) TSH, Sensitive 1.8 0.3 - 4.2 mIU/L 03/24/2025 10:28 AM CDT DTL Blood (Blood, Venous) 03/24/2025 9:29 AM CDT 03/24/2025 9:47 AM CDT us Jessica DowlingB.S. LAB BLOOD ADD-ON Final Res ult Performing Organization Address City/[facility]/ZIP Co de Phone Number [facility] [address] [place] [address], [facility] DTL [facility] [address] [place] [address] * 25-Hydroxyvitamin D2 and D3 (03/24/2025 9:29 [...] developed and its performance characteristics determined by [facility] in a manner consistent with CLIA requirements. This test has not been cleared or approved by the U.S. Food and Drug Administration. Blood (Blood, Venous) 03/24/2025 9:29 AM CDT 03/24/2025 12:16 PM CDT us Jessica DowlingB.S. LAB BLOOD ADD-ON Final Res ult [facility] [address] [place] [address] [facility] [address] [place] [address] [place] [address] * Ferritin (03/24/2025 9:29 AM CDT) Ferritin, S 132 6 - 175 mcg/L 03/24/2025 10:28 AM CDT DTL Blood (Blood, Venous) 03/24/2025 9:29 AM CDT 03/24/2025 9:47 AM CDT us Jessica DowlingB.S. LAB BLOOD ADD-ON Final Res ult [facility] [address] [place], [place] [address] DTL [facility] [address] [place] [address] * Pulmonary Function Tests (03/23/2025 9:48 AM CDT) FVC 5.33 L 03/23/2025 11:15 AM CDT [facility] FEV1 4.40 L 03/23/2025 11:15 AM CDT [facility] FEV1/FVC 82.70 % 03/23/2025 11:15 AM CDT [facility] VSA52-84% 4.89 L/s 03/23/2025 11:15 AM CDT [facility] PEF PRE 8.01 L/s 03/23/2025 11:15 AM CDT [facility] PIF PRE 8.12 L/s 03/23/2025 11:15 AM CDT [facility] Pre FEF50/FIF50 77.59 % 03/23/2025 11:15 AM CDT [facility] FET PRE 6.33 sec 03/23/2025 11:15 AM CDT [facility] DLCO 22.95 ml/(min*mm Hg) 03/23/2025 11:15 AM CDT [facility] DLCOc 24.32 ml/(min*mm Hg) 03/23/2025 11:15 AM CDT [facility] HB 11.70 g(Hb)/dL 03/23/2025 11:15 AM CDT [facility] Pre % Pred VA SINGLE BREATH 6.32 L 03/23/2025 11:15 AM CDT [facility] PulseRest 70.00 1/min 03/23/2025 11:15 AM CDT [facility] [id number] 98.00 % 03/23/2025 11:15 AM CDT [facility] PulseExer 121.00 1/min 03/23/2025 11:15 AM CDT [facility] EXER TIME 3.00 min 03/23/2025 11:15 AM CDT [facility] STEP HEIGHT PRE 9.00 Inch 03/23/2025 11:15 AM CDT [facility] 03/23/2025 9:48 AM CDT Impressions [facility] - 03/23/2025 11:15 AM CDT Normal spirometry [...] Jessica Barnes PFT ORDERABLES Final Resu lt [facility] NA * BMD Bone Density Spine Hips [...] Bone Mineral Density (BMD) analysis performed on [facility] iDXA with serial number [id number]. FINDINGS: Left Hip: Femur Neck: BMD = [...] Bone Mineral Density (BMD) analysis performed on [employer] with serialnumber [id number]. FINDINGS: Left Hip: Femur Neck: BMD = [...] mineral density within expected range for age. us Jessica Barnes [facility] DXA PROCEDURES Final R esult * (ABNORMAL) Urinalysis, with Microscopic: Urine, Midstream (01/09/2025 7:30 AM [employer]) Source Urine, Urine, Midstream 01/09/2025 7:46 AM [employer] DTL Color, U Yellow 01/09/2025 7:46 AM [employer] DTL Clarity, U Clear 01/09/2025 7:46 AM [employer] DTL Protein, U 29(H) <26 mg/dL 01/09/2025 8:28 AM [employer] DTL Protein/Osmol ality 0.51(H) <0.42 ratio 01/09/2025 8:28 AM [employer] DTL Predicted 24 HR Protein, U 363(H) <229 mg/24 h 01/09/2025 8:28 AM [employer] DTL Predicted Range 90-1469 mg/24 h 01/09/2025 8:28 AM [employer] DTL Comment Micro done on <5 mL 01/09/2025 8:33 AM [employer] DTL Urine (Urine, Midstream) 01/09/2025 7:30 AM [employer] 01/09/2025 7:46 AM [employer] Carlee Armas APRN, C.N.P., D.N.P., M.S. N. LAB URINE ORDERABLES Final Result [facility] [address] [place] [address], [facility] [address] [place] [address] * ThinPrep w/HPV Co-Test Screen (10/15/2019 11:05 AM [employer]) 10/21/2019 4:10 PM [employer] [facility] Report electronically signed by JEFF Mora(ASCP) I verify that I have examined all relevant slides/materials for the specimen(s) and rendered or confirmed the diagnosis. 10/21/2019 4:10 PM [employer] [facility] Gross Description Received specimen in a ThinPrep vial. 10/21/2019 4:10 PM [employer] [facility] Pap Test Source Cervical/Endocervi lolly 10/21/2019 4:10 PM [employer] [facility] Clinical History other 10/21/20 19 4:10 PM [employer] [facility] Menstrual Status(LMP, PM, ) on depo lupron 10/21/2019 4:10 PM [employer] [facility] Hormone Therapy/Contracep tives Hormone Replacement Therapy 10/21/2019 4:10 PM [employer] [facility] Interpretation Cervical/Endocervi lolly (ThinPrep): Satisfactory for Evaluation Negative for Intraepithelial Lesion or Malignancy High Risk HPV: Negative Negative for High Risk HPV by nucleic acid amplification. The following High Risk HPV types were not detected: 16, 18, 31, 33, 35, 39, 45, 51, 52, 56, 58, 59, 66, and 68. 10/21/2019 4:10 PM [employer] [facility] Varies (Cervix/Endocerv ix) 10/15/2019 11:05 AM [employer] 10/17/2019 7:54 AM [employer] Adore Alonso M.D. LAB PAP PATHDX ORDERABLE S Final Result [facility] [address] [place] [address], [facility] [address] [place] [address] * HCV Ab Scrn w/Reflex to HCV PCR, Serum (12/12/2018 5:58 PM [employer]) [facility] HCV Ab Screen, S Negative Negative 12/12/2018 10:26 PM [employer] [facility] Comment:Jmpkri-xv-mteauv rat io is <1.00. Blood (Blood, Venous) 12/12/2018 5:58 PM [employer] 12/12/2018 7:59 PM [employer] Adore Yip APRN, C .N.P., D.N.P. LAB MICROBIOLOGY - BLOOD ORDERABLES Final Result Performing Organization Address City/[facility]/ZIP Co de Phone Number [facility] [address] [place] [address] * Hepatitis B Surface Antigen (12/12/2018 5:58 PM [employer]) HBs Antigen, S Negative Negative 12/12/2018 10:08 PM [employer] [facility] Blood (Blood, Venous) 12/12/2018 5:58 PM [employer] 12/12/2018 7:59 PM [employer] Adore Yip APRN C .N.P., D.N.P. LAB MICROBIOLOGY - BLOOD ORDERABLES Final Result [facility] [address] [place] [address] from Last 3 Months or Most Recently Relevant to Health Maintenance Additional Health Concerns Infection Onset Date Last Indicated Protective Environment 03/02/2023 3 Insurance [facility] PRODUCTS MEDICARE Advance Directives For more information, please contact: [phone] Documents on File Type Date Recorded Patient Check Totaler Expl anation Advance Directives 12/08/2024 9:32 AM Gabrielle Minor HCPOA/ADVOCATE/AGENT/R EPRESENTATIVE/SURROGAT E * Full Code (Latest Code Status on File) Date Activated Date Inactivated Comments 06/12/2025 4:47 PM 06/13/2025 7:27 PM Question Answer Comments Full Code: Discussed * Full Code Date Activated Date Inactivated Comments 05/28/2025 3:47 [...] Agents on File Name Relationship Healthcare Agent [facility] p Communication Gabrielle Martinez Mother Health Care Agent Charles Minor Significant Other First Alternat e Health Care Agent Care Teams Medicare Sales Executive Relationship Specialty Start Date End Date Renzo Andres M.D. [address] [place] [address] [place] [address] PCP - General Family Medicine 04/25/23
--- OUTSIDE RECORDS SUMMARY | 2025-06-14 18:21 | XMS_ITS | Encounter Summary ---
Author Organization [facility] Address [address] [place] [address] Care Team Providers Care Sampling Theory Teacher Name Role Phone Renzo Andres M.D. Primary Care Provider Reason for Referral * Outpatient (Routine) - Closed Specialty Diagnoses / Procedures Referred By Estefania acosta Referred To Contact Palliative Medicine Diagnoses Transplant Stem Cell (HCC) Becky Hernandez APRN, C.N.PKatalina, D.N.P. [address] [place] [phone] Phone: tel: fax: [facility] Referral ID Status Reason Start Date Expiration Date Visits Re quested Visits Authorized [id number] Closed 04/18/2025 10/18/2026 1 1 * Transplant (Routine) - Closed Specialty Diagnoses / Procedures Referred By Estefania acosta Referred To Contact Transplant Becky Hernandez APRN, C.N.P., D.N.P. [address] [place] [phone] Phone: tel: fax: [facility] Referral ID Status Reason Start Date Expiration Date Visits Re quested Visits Authorized [id number] Closed 04/18/2025 10/18/2026 1 1 Scheduling Instructions Please schedule with ANUPAM for 60 minutes. Encounter Details Date Type Department Care Team (Late st Contact Info) Description 04/18/2025 Orders Only Pedro [facility] [place] for Transplantation and Clinical Regeneration in [place], [place] [address] [place] [address] Becky Hernandez APRN, C.N.P., D.N.P. [address] [place] [address] Transplant Stem Cell (HCC) (Primary Dx) Social History Tobacco Use Types Packs/Day Years Used Date Smoking Tobacco: Never Smokeless Tobacco: Never Alcohol Use Standard Drinks/Week Comments Yes 0 (1 standard drink = 0.6 oz pur e alcohol) social [facility] Utilities Answer Date Recorded In the past 12 months has [employer], gas, oil, or water [employer] threatened to shut off services in your [...] your living situation today? I have a [facility] place to live 12/19/2024 Education Answer Date Recorded What is the highest level of school you have completed or the highest degree you have received? Some college, no degree 04/24/2019 Comments No Sex and Gender Information Value Date Recorded Sex Assigned at Female 12/26/2018 8:37 PM STOREKEEPER HELPER Legal Sex Female 2:43 PM STOREKEEPER HELPER Gender Identity Female 12/26/2018 8:37 PM STOREKEEPER HELPER Sexual Orientation Choose not to disclose 2020 3:46 PM CDT documented as of this encounter Plan of Treatment Upcoming Encounters Date Type Department Care Team (Latest Contact Info) Description 06/12/2025 11:59 PM CDT Anesthesia Event Outpatient Procedure Center in [place], [place] [address] [place] [address] Kristin Friend M.D. [address] [place] [phone] 06/15/2025 9:45 AM CDT Hospital Encounter Outpatient Procedure Center in [place], [place] [address] [place] [address] Jessica Rousseau M.B.B.S. [address] [place] [phone] 06/15/2025 2:00 PM CDT [facility] in [place], [place] [address] [place] [address] Jessica Rousseau M.B.B.S. [address] [place] [phone] 06/24/2025 12:30 PM CDT Clinical Communication Virtual Review in [place], [place] [address] [place] [address] 06/25/2025 8:10 AM CDT Lab Department of Laboratory Medicine and Pathology, [facility], in [place], [place] [address] [place] [address] Tessa Jesus APRN, C.N.P., D.N.P. [address] [place] [phone] 06/25/2025 9:00 AM CDT [facility] in [place], [place] [address] [place] [address] Tessa Jesus APRN, C.N.P., D.N.P. [address] [place] [phone] 06/25/2025 9:30 AM CDT Nurse Only [facility] for Transplantation and Clinical Regeneration in [place], [place] [address] [place] [address] Tessa Jesus APRN, C.N.P., D.N.P. [address] [place] [phone] 06/25/2025 10:30 AM CDT Office [facility] in [place], [place] [address] [place] [address] Jessica Rousseau M.B.B.S. [address] [place] [phone] 06/25/2025 12:00 PM CDT Appointment Department of Radiology, [facility], in [place], [place] [address] [place] [phone] Arlen James APRN, C.N.P., D.N.P. [address] [place] [phone] 06/25/2025 12:40 PM CDT Appointment Department of Cardiovascular Diseases in [place], [place] [address] [place] [phone] Analia Carter APRN, C.N.P. [address] [place] [phone] Discharge Disposition: Home or Self Care 06/26/2025 10:00 AM CDT Telemedicine Department of Palliative Care in [place], [place] [address] [place] [phone] Isabel Sellers M.D. [address] [place] [phone] Debbie Shay M.D. [address] [place] [phone] 08/12/2025 10:40 AM CDT Nurse Only Section of Infectious Diseases in [place], [place] [address] [place] [phone] Jessica Rousseau M.B.BKatalinaS. [address] [place] [phone] Scheduled Referrals Name Type Priority Associated Diagnoses [...] Total Score: 2 12/10/19 25 2:46 PM STOREKEEPER HELPER documented as of this encounter Care Teams Sampling Theory Teacher Relationship Specialty Start Date End Date Renzo Andres M.D. [address] [place] [phone] PCP - General Family Medicine 04/25/23 documented as of this encounter
--- OUTSIDE RECORDS SUMMARY | 2025-06-14 18:21 | XMS_ITS | Encounter Summary ---
Author Organization [facility] Address [address] [place] [address] Care Team Providers Care Group Director Experience Name Role Phone Renzo Andres M.D. Primary Care Provider Reason for Visit * Reason Onset Date Comments Nurse Assessment 05/03/2025 Nausea/Vomiting Encounter Details Date Type Department Care Team (Latest Contact Info) Description 05/03/2025 Clinical Communication [facility], Ninth Floor [address] [place] [address] Juan Mahmood, RKatalinaNKatalina Nurse Assessment (Nausea/Vomiting ) Social History Tobacco Use Types Packs/Day Years Used Date Smoking Tobacco: Never Smokeless Tobacco: Never Alcohol Use Standard Drinks/Week Comments Yes 0 (1 standard drink = 0.6 oz pur e alcohol) social [facility] Utilities Answer Date Recorded In [...] living situation today? I have a [facility] place to live 12/19/2024 Education Answer Date Recorded What is the highest level of school you have completed or the highest degree you have received? Some college, no degree 04/24/2019 Comments No Sex and Gender Information Value Date Recorded Sex Assigned at Female 12/26/2018 8:37 PM HISTOPATH TECH Legal Sex Female 2:43 PM HISTOPATH TECH Gender Identity Female 12/26/2018 8:37 PM HISTOPATH TECH Sexual Orientation Choose not to disclose 2020 [...] CDT Anesthesia Event Outpatient Procedure Center in [address] [phone] Kristin Friend M.D. [address] [place] [phone] 06/15/2025 9:45 AM CDT Hospital Encounter Outpatient Procedure Center in [address] [phone] Jessica Rousseau M.B.B.S. [address] [place] [phone] 06/15/2025 2:00 PM CDT [facility] in [place], [place] [address] [place] [phone] Jessica Rousseau M.B.B.S. [address] [place] [phone] 06/24/2025 12:30 PM CDT Clinical Communication Virtual Review in [place], [place] 200 [place] [address] 06/25/2025 8:10 AM CDT Lab Department of Laboratory Medicine and Pathology, [facility], in [place], [place] [address] [place] [address] Tessa Jesus APRN, C.N.PKatalina, D.N.P. [address] [place] [phone] 06/25/2025 9:00 AM CDT Office [facility] in [place], [place] [address] [place] [address] Tessa Jesus APRN, C.N.PKatalina, D.N.P. [address] [place] [phone] 06/25/2025 9:30 AM CDT Nurse Only [facility] Transplantation and Clinical Regeneration in [place], [place] [address] [place] [address] Tessa Jesus APRN, C.N.PKatalina, D.N.P. [address] [place] [phone] 06/25/2025 10:30 AM CDT Office Visit [facility] in [place], [place] [address] [place] [address] Jessica Rousseau M.B.BKatalinaSKatalina [address] [place] [phone] 06/25/2025 12:00 PM CDT Appointment Department of Radiology, [facility], in [place], [place] [address] [place] [address] Arlen James APRN, Satnam.N.P., D.N.P. [address] [place] [phone] 06/25/2025 12:40 PM CDT Appointment Department of Cardiovascular Diseases in [place], [place] [address] [place] [phone] Analia Carter, KARON, C.N.P. [address] [place] [phone] Discharge Disposition: Home or Self Care 06/26/2025 10:00 AM CDT Telemedicine Department of Palliative Care in [place], [place] [address] [place] [phone] Isabel Sellers M.D. [address] [place] [phone] Debbie Shay M.D. [address] [place] [phone] 08/12/2025 10:40 AM CDT Nurse Only Section of Infectious Diseases in [place], [place] [address] [place] [phone] Jessica Rousseau M.B.B.S. [address] [place] [phone] documented as of this encounter Visit Diagnoses Not on filedocumented in this encounter Additional Health Concerns Infection Onset Date Last Indicated Resolved Time Protective Environment 03/02/2023 03/02/2023 Assessment Noted Time PHQ-9 Depression Total Score: 2 12/10/19 25 2:46 PM HISTOPATH TECH documented as of this encounter Care Teams Group Director Experience Relationship Specialty Start Date End Date Renzo Andres M.D. [address] [place] [phone] PCP - General Family Medicine 04/25/23 documented as of this encounter
--- OUTSIDE RECORDS SUMMARY | 2025-06-14 18:22 | XMS_ITS | Encounter Summary ---
Author Organization [facility] Address [address] [place] [address] Care Team Providers Care Accounting Reconciliation Clerk Name Role Phone Renzo Andres M.D. Primary Care Provider [phone] Encounter Details Date Type Department Care Team (Latest Contact Info) Description 05/17/2025 Clinical Communication [facility] for Transplantation and Clinical Regeneration in [place], [place] [address] [place] [address] Ladonna Constantino, RKatalinaN. Social History Tobacco Use Types Packs/Day Years Used Date Smoking Tobacco: Never Smokeless Tobacco: Never Alcohol Use Standard Drinks/Week Comments Yes 0 (1 standard drink = 0.6 oz pur e alcohol) social [facility] Utilities Answer Date Recorded In the past 12 months has [facility] [employer], gas, oil, or water [employer] threatened to shut off services in your [...] Sex Assigned at Female 12/26/2018 8:37 PM FIELD PROPERTY LOSS SPECIALIST Legal Sex Female 2:43 PM FIELD PROPERTY LOSS SPECIALIST Gender Identity Female 12/26/2018 8:37 PM FIELD PROPERTY LOSS SPECIALIST Sexual Orientation Choose not to disclose [...] CDT Anesthesia Event Outpatient Procedure Center in [address] [address] Kristin Friend M.D. [address] [place] [phone] 06/15/2025 9:45 AM CDT Hospital Encounter Outpatient Procedure Center in [place], [place] [address] [place] [phone] Jessica Rousseau M.B.B.S. [address] [place] [phone] 06/15/2025 2:00 PM CDT Office [facility] in [place], [place] [address] [place] [phone] Jessica Rousseau M.B.B.S. [address] [place] [phone] 06/24/2025 12:30 PM CDT Clinical Communication Virtual Review in [place], [place] 200 [place] [address] 06/25/2025 8:10 AM CDT Lab Department of Laboratory Medicine and Pathology, [facility], in [place], [place] [address] [place] [address] Tessa Jesus APRN, C.N.PKatalina, D.N.P. [address] [place] [phone] 06/25/2025 9:00 AM CDT [facility] in [place], [place] [address] [place] [address] Tessa Jesus APRN, C.N.PKatalina, D.N.P. [address] [place] [phone] 06/25/2025 9:30 AM CDT Nurse Only [facility] Transplantation and Clinical Regeneration in [place], [place] [address] [place] [address] Tessa Jesus APRN, C.N.P., D.N.P. [address] [place] [phone] 06/25/2025 10:30 AM CDT Office Visit [facility] in [place], [place] [address] [place] [address] Jessica Rousseau M.B.B.S. [address] [place] [phone] 06/25/2025 12:00 PM CDT Appointment Department of Radiology, [facility], in [place], [place] [address] [place] [address] Arlen James APRN, C.N.P., D.N.P. [address] [place] [phone] 06/25/2025 12:40 PM CDT Appointment Department of Cardiovascular Diseases in [place], [place] [address] [place] [phone] Analia Carter, KARON, C.N.P. [address] [place] [phone] Discharge Disposition: Home or Self Care 06/26/2025 10:00 AM CDT Telemedicine Department of Palliative Care in [place], [place] [address] [place] [phone] Isabel Sellers M.D. [address] [place] [phone] Debbie Shay M.D. [address] [place] [phone] 08/12/2025 10:40 AM CDT Nurse Only Section of Infectious Diseases in [place], [place] [address] [place] [phone] Jessica Rousseau M.B.B.S. [address] [place] [phone] documented as of this encounter Visit Diagnoses Not on filedocumented in this encounter Additional Health Concerns Infection Onset Date Last Indicated Resolved Time Protective Environment 03/02/2023 03/02/2023 Assessment Noted Time PHQ-9 Depression Total Score: 2 12/10/19 25 2:46 PM FIELD PROPERTY LOSS SPECIALIST documented as of this encounter Care Teams Accounting Reconciliation Clerk Relationship Specialty Start Date End Date Renzo Andres M.D. [address] [place] [address] [place] [address] PCP - General Family Medicine 04/25/23 documented as of this encounter
--- OUTSIDE RECORDS SUMMARY | 2025-06-14 18:22 | XMS_ITS | Encounter Summary ---
Author Organization [facility] Address [address] [place] [address] Care Team Providers Care Film Historian Name Role Phone Renzo Andres M.D. Primary Care Provider Reason for Visit * Reason Onset Date Comments Lab Monitoring 06/08/2025 Encounter Details Date Type Department Care Team (Latest Contact Info) Description 06/08/2025 Clinical Communication [facility] in [place], [place] [address] [place] [address] Jessica Rousseau M.B.B.S. [address] [place] [address] Lab Monitoring Social History Tobacco Use Types Packs/Day Years Used Date Smoking Tobacco: Never Smokeless Tobacco: Never Alcohol Use Standard Drinks/Week Comments Yes 0 (1 standard drink = 0.6 oz pur e alcohol) social [facility] Utilities Answer Date Recorded In the [...] your living situation today? I have a [facility] place to live 05/28/2025 Education Answer Date Recorded What is the highest level of school you have completed or the highest degree you have received? Some college, no degree 04/24/2019 Comments No Sex and Gender Information Value Date Recorded Sex Assigned at Female 12/26/2018 8:37 PM HIV NURSE Legal Sex Female 2:43 PM HIV NURSE Gender Identity Female 12/26/2018 8:37 PM HIV NURSE Sexual Orientation Choose not to disclose 2020 3:46 PM CDT documented as of this encounter Miscellaneous Notes * Telephone Encounter - Elise Pizarro, R.N. - 06/08/2025 12:10 PM CDT SUBJECTIVE CHIEF COMPLAINT / REASON FOR CALL No chief complaint on file. ASSESSMENT Radha called. She is continuing to have burning in her chest, abdominal pain, feeling weak and flu-like as well as some ongoing tightness of her chest. Symptoms have been going on for a couple of weeks now. EKG was clear last week. I advised her to see if her PCP can get her in [place]. If not, recommended ED so a provider could listen to her and look her over. She is very concerned about all of these symptoms and feels like something is wrong. See assessment below: Sharp pain under belly button Burning pain felt under left rib cage These pains come and go Feels like something is going on Tight and pressure occasionally felt in her chest. This has been going on for a couple of weeks Has been nauseous on and off Decreased appetite. Reports she had difficulty eating a piece of toast today Denies feeling like heart is racing or skipping a beat Denies dizziness but endorses lightheadedness in the AM upon getting up. Feels weak and overall sore/achy Denies fevers PLAN Recommended her to see if her PCP can get her in [place] today. If not, recommended her to go to ED. We have been looking at her cardiac function and are also checking on infectious disease workup. Looking for a cause. Because of this, recommended she be seen today, regardless which route she takes. Disposition/Recommendation: see above. Either PCP or ED. Information/Education: patient/caller able to teach back. Caller agreeable to plan of care: yes. The following references were used: nursing clinical judgement. documented in this encounter Plan of Treatment Upcoming Encounters Date Type Department Care Team (Latest Contact Info) Description 06/12/2025 11:59 PM CDT Anesthesia Event Outpatient Procedure Center in [place], [place] [address] [place] [address] Kristin Friend M.D. [address] [place] [phone] 06/15/2025 9:45 AM CDT Hospital Encounter Outpatient Procedure Center in [place], [place] [address] [place] [address] Jessica Rousseau M.B.B.S. [address] [place] [phone] 06/15/2025 2:00 PM CDT Office Visit Pedro Naz[facility] [place] for Transplantation and Clinical Regeneration in [place], [place] [address] [place] [phone] Jessica Rousseau M.B.B.S. [address] [place] [phone] 06/24/2025 12:30 PM CDT Clinical Communication Virtual Review in [place], [place] [address] [place] [address] 06/25/2025 8:10 AM CDT Lab Department of Laboratory Medicine and Pathology, [facility], in [place], [place] [address] [place] [phone] Tessa Jesus APRN, C.N.P., D.N.P. [address] [place] [phone] 06/25/2025 9:00 AM CDT Office Visit Pedro Nazario [facility] Transplantation and Clinical Regeneration in [place], [place] [address] [place] [phone] Tessa Jesus APRN, C.N.P., D.N.P. [address] [place] [phone] 06/25/2025 9:30 AM CDT Nurse Only [facility] in [place], [place] [address] [place] [address] Tessa Jesus APRN, C.N.P., D.N.P. [address] [place] [phone] 06/25/2025 10:30 AM CDT [facility] in [place], [place] [address] [place] [phone] Jessica Rousseau M.B.B.S. [address] [place] [phone] 06/25/2025 12:00 PM CDT Appointment Department of Radiology, [facility], in [place], [place] [address] [place] [address] Arlen James APRN, C.N.P., D.N.P. [address] [place] [phone] 06/25/2025 12:40 PM CDT Appointment Department of Cardiovascular Diseases in [place], [place] [address] [place] [phone] Analia Carter APRN, C.N.P. [address] [place] [phone] Discharge Disposition: Home or Self Care 06/26/2025 10:00 AM CDT Telemedicine Department of Palliative Care in [place], [place] [address] [place] [phone] Isable Sellers M.D. [address] [place] [phone] Debbie Shay M.D. [address] [place] [phone] 08/12/2025 10:40 AM CDT Nurse Only Section of Infectious Diseases in [place], [place] [address] [place] [phone] Jessica Rousseau M.B.B.S. 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 [address] [place] [phone] PCP - General Family Medicine 04/25/23 documented as of this encounter
--- OUTSIDE RECORDS SUMMARY | 2025-06-14 18:22 | XMS_ITS | Encounter Summary ---
Author Organization [facility] Address [address] [place] [address] Care Team Providers Care Tax Lawyer Name Role Phone Renzo Andres M.D. Primary Care Provider Reason for Visit * Reason Onset Date Comments Lab Monitoring 05/11/2025 05/08/2025 Encounter Details Date Type Department Care Team (Latest Contact Info) Description 05/11/2025 Clinical Communication [facility] [place], [place] [address] [place] [address] Arely Taylor, R.N. [address] [place] [phone] Lab Monitoring (05/08/2025) Social History Tobacco Use [...] things needed for daily living? No 06/12/2025 [facility] Utilities Answer Date Recorded In the past 12 months has [employer], gas, oil, or water [employer] threatened to shut off services in your home? No 06/12/2025 Depression Answer Date Recor ded PHQ-9 Total Score (max 27) 2 12/10 Housing Stability Answer Date Recorded What is your living situation today? I have a [employer] place to live 06/12/2025 Education Answer Date Recorded What is the highest level of school you have completed or the highest degree you have received? Some college, no degree 04/24/2019 Comments No Sex and Gender Information Value Date Recorded Sex Assigned at Female 12/26/2018 8:37 PM LUSTER APPLICATOR Legal Sex Female 2:43 PM LUSTER APPLICATOR Gender Identity Female 12/26/2018 8:37 PM LUSTER APPLICATOR Sexual Orientation Choose not to disclose 2020 3:46 PM CDT documented as of this encounter Miscellaneous Notes * Telephone Encounter - Arely Taylor R.N. - 05/11/2025 1:[address] Rousseau, Current Immunosuppression: N/A Date of Last Dose Change: GVHD:no Misc: From visit with BALDO Nye on 04/29/2025, # Disposition - Follow-up labs, pharmacy, RN/provider in three weeks. - Local labs at [facility] in 10 days. BMT Allogenic transplant date: 12/10/2024 (152 days) Lab frequency: weekly Next BMT visit: 05/20/2025 Outside labs from 05/08/2025 are located in the Labs section of [facility]. Labs pending: None Resulted Labs: Recent Labs [...] CDT Anesthesia Event [facility] in [place], [place] [address] [place] [address] Kristin Friend M.D. [address] [place] [phone] 06/15/2025 9:45 AM CDT Hospital Encounter [facility] in [place], [place] [address] [place] [phone] Jessica Rousseau M.B.B.S. [address] [place] [phone] 06/15/2025 2:00 PM CDT [facility] [place], [place] [address] [place] [address] Jessica Rousseau M.B.B.S. [address] [place] [phone] 06/24/2025 12:30 PM CDT Clinical Communication Virtual Review in [place], [place] 200 [place] [phone] 06/25/2025 8:10 AM CDT Lab Department of Laboratory Medicine and Pathology, [facility] in [place], [place] [address] [place] [phone] Tessa Jesus APRN, C.N.P., D.N.P. [address] [place] [phone] 06/25/2025 9:00 AM CDT Office Visit [facility] [place], [place] [address] [place] [phone] Tessa Jesus APRN, C.N.P., D.N.P. [address] [place] [phone] 06/25/2025 9:30 AM CDT Nurse Only [facility] in [place], [place] [address] [place] [phone] Tessa Jesus APRN, C.N.P., D.N.P. [address] [place] [phone] 06/25/2025 10:30 AM CDT Office Visit [facility] in [place], [place] [address] [place] [phone] Jessica Rousseau M.B.BKatalinaS. [address] [place] [phone] 06/25/2025 12:00 PM CDT Appointment Department of Radiology, [facility], in [place], [place] [address] [place] [phone] Arlen James APRN, C.N.P., D.N.P. [address] [place] [phone] 06/25/2025 12:40 PM CDT Appointment Department of Cardiovascular Diseases in [place], [place] [address] [place] [phone] Analia Carter APRN, C.N.P. [address] [place] [phone] Discharge Disposition: Home or Self Care 06/26/2025 10:00 AM CDT Telemedicine Department of Palliative Care in [place], [place] [address] [place] [phone] Isabel Sellers M.D. [address] [place] [phone] Debbie Shay M.D. [address] [place] [phone] 08/12/2025 10:40 AM CDT Nurse Only Section of Infectious Diseases in [place], [place] [address] [place] [phone] Jessica Rousseau M.B.B.S. 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 [address] [place] [address] [place] [phone] PCP - General Family Medicine 04/25/23 documented as of this encounter
--- OUTSIDE RECORDS SUMMARY | 2025-06-14 18:22 | XMS_ITS | Clinical Summary ---
Author Organization [employer] [facility] Address [address] [place] [address] Care Team Providers Care Media Center Assistant Name Role Phone Antoinette Palacio PhD, LP Unavailable [phone] Shweta Graciakim Huber [employer] SOLUTIONS ARCHITECT Unavailable [phone] Unavailable [phone] Staff, Other Clinical Unavailable UnavailErmelinda Cadet MD [...] Date Type Department Care Team Description 06/08/2025 11:15 AM CDT Telemedicine [facility] [address] [place] [address] Renita Pichardo PsyD, LP Psychotherapy 06/08/2025 Nurse Triage [facility] [address] [place] [address] Ermelinda Pierre MD Appointment 06/05/2025 1:00 PM CDT Telemedicine [facility] [address] [place] [address] Felicia Weathers NP Follow Up; Medication Management; Telehealth 06/05/2025 Travel 06/01/2025 8:45 AM CDT Telemedicine [facility] [address] [place] [address] Renita Pichardo PsyD, LP Psychotherapy 05/29/2025 Telephone [facility] [address] [place] [address] Iris Victor LICSW Care Coordination (Re Engagement ) 05/28/2025 Telephone [facility] [address] [place] [address] Renita Pichardo PsyD, LP FYI (Regarding appointment) 05/20/2025 1:45 PM CDT Telemedicine [facility] [address] [place] [address] Renita Pichardo PsyD, FIDENCIO Psychotherapy 05/12/2025 1:45 PM CDT Telemedicine [facility] [address] [place] [address] Renita Pichardo PsyD, LP Psychotherapy 05/08/2025 Telephone [facility] [address] [place] [address] Felicia Weathers NP Follow Up 05/06/2025 Telephone [facility] [address] [place] [address] Ermelinda Pierre MD ACC Order Request 05/04/2025 11:15 AM CDT Telemedicine [facility] [address] [place] [address] Renita Pichardo PsyD, LP Psychotherapy 04/20/2025 11:15 AM CDT Telemedicine [facility] [address] [place] [address] Renita Pichardo PsyD, LP Psychotherapy 04/06/2025 11:15 AM CDT Telemedicine [facility] [address] [place] [address] Renita Pichardo PsyD, LP Psychotherapy 03/23/2025 11:15 AM CDT Telemedicine [facility] [address] [place] [address] Renita Pichardo PsyD, LP [facility] Months Immunizations Immunization [...] on file Legal Sex Female 5:23 AM SALES MARKETING COORDINATOR Gender Identity Not on file Sexual [...] 36.2 C (97.1 F) 11/21/2023 9:09 AM SALES MARKETING COORDINATOR Respiratory Rate 18 11/21/2023 9:09 AM SALES MARKETING COORDINATOR Oxygen Saturation 98% 06/23/2024 10:48 AM CDT Inhaled Oxygen Concentration - - Weight 99.1 kg (218 lb 8 oz) 06/23/2024 10:48 AM CDT Height 172 cm (5' 7.72) 06/23/2024 10:48 AM CDT Body Mass Index 33.5 06/23/2024 10:48 AM CDT Plan of Treatment Upcoming Encounters Date Type Department Care Team (Late st Contact Info) Description 06/17/2025 1:00 PM CDT Telemedicine [facility] [address] [place] [address] Renita Pichardo, [place], LP [address] [facility] [address] [place] [address] 06/22/2025 11:15 AM CDT Telemedicine [facility] [address] [place] [address] Renita Pichardo PsyD, LP [address] [facility] [address] [place] [address] 06/29/2025 11:15 AM CDT Telemedicine [facility] [address] [place] [address] Renita Pichardo PsyD, LP [address] [facility] [address] [place] [address] 08/28/2025 1:00 PM CDT Telemedicine [facility] [address] [place] [address] Felicia Weathers, [place] [address] [place] [address] Health Maintenance Due Date Last Done Comments [...] CDT Need for hepatitis C screening test AUTOMATED CUTTING MACHINE OPERATOR THIN PREP PAP SCREEN IMAGED Routine 11/25/2013 11:15 AM SALES MARKETING COORDINATOR Screening for malignant neoplasm of the cervix ANTI HIV 1/2 Routine 12/26/2010 5:05 PM SALES MARKETING COORDINATOR Supervision of normal first (HC) from Last 3 Months or Most Recently Relevant to Health Maintenance Results * ANTI HCV (08/02/2023 1:57 PM CDT) HEPATITIS C ANTIBODY Non-Reacti ve Non-React nina 08/03/2023 3:36 PM CDT [facility] Comment:Please note, per www [...] us Estefany BLAND SEND OUTS Final Result [facility] SENDOUT INTERNAL ZIP [id number] [address] [place] [address] * AUTOMATED CUTTING MACHINE OPERATOR THIN PREP PAP SCREEN IMAGED (11/25/2013 11:15 AM SALES MARKETING COORDINATOR) CYTOLOGY CYTOPATHOLOGY REPORT [facility] Status: Final Status [id number] CLINICAL INFORMATION Last Date of LMP :11/17/13 Last Pap Date :03/03/2011 Last Pap Result :NIL ABN [place]/Bx Past 5 YRS :None Hormone Usage :BCP/OCP/Patch/Rin g Menstrual Status :Regular Periods [place]/Bx done today :No Additional Information :None given [...] malignant lesions. COLLECTED:11/25/13 ACCESSIONED: 11/26/13 SIGNED: 12/02/13 [facility] P[facility] [place] CODE NIL [facility] Tissue specimen (specimen) (Cervical/Vagina l) 11/25/2013 11:15 AM SALES MARKETING COORDINATOR 11/25/2013 11:12 AM SALES MARKETING COORDINATOR us Cecile Costa PATHOLOGY/CYTOLOGY Final Resu lt [facility] INTERNAL ZIP [id number] [place] [address] * ANTI HIV 1/2 (12/26/2010 5:05 PM SALES MARKETING COORDINATOR) ANTI HIV 1/2 Non-reacti ve [facility] Blood specimen (specimen) BLOOD SPECIMEN / Unknown 12/26/2010 5:05 PM SALES MARKETING COORDINATOR 12/26/2010 4:55 PM SALES MARKETING COORDINATOR Ladonna Nathan INJECTION MACHINE OPERATOR SEND OUTS Final Result [facility] INTERNAL ZIP [address] [address] from Last 3 Months or Most Recently Relevant to Health Maintenance Insurance MEDICARE PB ONLY MEDICARE PART A HB ONLY MEDICARE PART B HB ONLY [facility] [phone] (Home) ATTN: FRANK WHITE [phone] [place] [phone] Care Teams Media Center Assistant Relationship Specialty Start Date End Date Ermelinda Pierre MD [place] [address] PCP - General Family Practice 06/23/24 Antoinette Palacio, PhD, LP Psychologist Psychology 04/24/12 [facility] [address] [place], [place] [phone] Consulting Physician Clinical Nurse Specialist 07/07/[address] [place] [address] Registered Dietitian Sales And Marketing Vice President 07/07/22 Staff, Other Clinical . Therapist Mental Health 07/03/22
--- OUTSIDE RECORDS SUMMARY | 2025-06-14 18:22 | XMS_ITS | Encounter Summary ---
Author Organization [facility] Address [address] [place] [address] Care Team Providers Care Editor Department Name Role Phone Renzo Andres M.D. 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 [address] [place] [phone] Phone: tel: fax: [facility] Referral ID Status Reason Start Date Expiration Date V isits Requested Visits Authorized [id number] Authorized 06/08/2025 09/08/2026 1 1 * Outpatient (Routine) - Authorized Specialty Diagnoses / Procedures Referred By Contac t Referred To Contact Pharmacy Arlen James APRN, C.N.P., D.N.P. [address] [place] [phone] Phone: tel: fax: [facility] Referral ID Status Reason Start Date Expiration Date V isits Requested Visits Authorized [id number] Authorized 06/08/2025 12/08/2026 1 1 Scheduling Instructions Please schedule with pharmacist for 30 minutes. Please schedule ANUPAM/RN joint visit on 06/10/25. Encounter Details Date Type Department Care Team (Latest Contact Info) Description 06/08/2025 Clinical Communication Pedro sanchez [facility] for Transplantation and Clinical Regeneration in [place], [place] [address] [place] [phone] Jessica Rousseau M.B.B.S. [address] [place] [phone] Social History Tobacco Use Types Packs/Day Years [...] things needed for daily living? No 06/12/2025 [facility] Utilities Answer Date Recorded In the past 12 months has th e electric, gas, oil, or water company threatened to shut off services in your home? No 06/12/2025 Depression Answer Date Recor ded PHQ-9 Total Score (max 27) 2 12/10 Housing Stability Answer Date Recorded What is your living situation today? I have a [facility] place to live 06/12/2025 Education Answer Date Recorded What is the highest level of school you have completed or the highest degree you have received? Some college, no degree 04/24/2019 Comments No Sex and Gender Information Value Date Recorded Sex Assigned at Female 12/26/2018 8:37 PM STEWARDESSES TEACHER Legal Sex Female 2:43 PM STEWARDESSES TEACHER Gender Identity Female 12/26/2018 8:37 PM STEWARDESSES TEACHER Sexual Orientation Choose not to disclose 2020 3:46 PM CDT documented as of this encounter Miscellaneous Notes * Telephone Encounter - Elise Pizarro, R.N. - 06/08/2025 11:09 AM CDT Per infectious disease note from Meghan Lainez, Obtain Fungitell, respiratory pathogen panel and if she has productive cough, sputum cultures for GS, bacterial culture, fungal culture and Pneumocystis PCR. Induced sputum can be considered if cough is unproductive. If has/develops infectious symptoms, consult pulmonary for BAL with ICH protocol. Repeat CT chest approximately 2 weeks after the last one done on 06/05. If progression noted, then consult pulmonary for BAL with ICH protocol. Consult ID for in person evaluation if any testing positive or repeat imaging shows progression. Called patient. She denies productive cough. Will need to induce sputum to collect samples. She will try to get RPP done with her local provider today as we cannot schedule this at [facility] locations. She will let us know if she is having rouble with this. She is willing to be seen in clinic on Sunday06/10/25 since she Danish already be in [place] for other appointments. Will request this and send orders to [facility]UP[facility] group for review. documented in this encounter Plan of Treatment Upcoming Encounters Date Type Department Care Team (Latest Contact Info) Description 06/12/2025 11:59 PM CDT Anesthesia Event Outpatient Procedure Center in [address] [phone] Kristin Friend M.D. [address] [place] [phone] 06/15/2025 9:45 AM CDT Hospital Encounter Outpatient Procedure Center in [address] [phone] Jessica Rousseau M.B.B.S. [address] [place] [phone] 06/15/2025 2:00 PM CDT Office Visit Pedro Aravind [facility] for Transplantation and Clinical Regeneration in [address] [phone] Jessica Rousseau M.B.B.S. [address] [place] [phone] 06/24/2025 12:30 PM CDT Clinical Communication Virtual Review in [address] [phone] 06/25/2025 8:10 AM CDT Lab Department of Laboratory Medicine and Pathology, [facility], in [address] [phone] Tessa Jesus APRN, C.N.P., D.N.P. [address] [place] [phone] 06/25/2025 9:00 AM CDT Office Visit [facility] Transplantation and Clinical Regeneration in [place], [place] [address] [place] [address] Tessa Jesus APRN, C.N.P., D.N.P. [address] [place] [phone] 06/25/2025 9:30 AM CDT Nurse Only [facility] Transplantation and Clinical Regeneration in [place], [place] [address] [place] [address] Tessa Jesus APRN, C.N.P., D.N.P. [address] [place] [phone] 06/25/2025 10:30 AM CDT Office Visit [facility] Transplantation and Clinical Regeneration in [place], [place] [address] [place] [phone] Jessica Rousseau M.B.B.SKatalina [address] [place] [phone] 06/25/2025 12:00 PM CDT Appointment Department of Radiology, [facility], in [place], [place] [address] [place] [phone] Arlen James APRN, C.N.P., D.N.P. [address] [place] [phone] 06/25/2025 12:40 PM CDT Appointment Department of Cardiovascular Diseases in [place], [place] [address] [place] [phone] Analia Carter APRN, C.N.P. [address] [place] [phone] Discharge Disposition: Home or Self Care 06/26/2025 10:00 AM CDT Telemedicine Department of Palliative Care in [place], [place] [address] [place] [phone] Isabel Sellers M.D. [address] [place] [phone] Debbie Shay M.D. [address] [place] [phone] 08/12/2025 10:40 AM CDT Nurse Only Section of Infectious Diseases in [place], [place] [address] [place] [phone] Jessica Rousseau M.B.B.S. 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) Expected: 06/10/2025, Expires: 09/08/2025 AST (Aspartate Aminotransferase) Lab Routine 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) Expected: 06/10/2025, Expires: 09/08/2025 Bilirubin, Total Lab Routine 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) Expected: 06/10/2025, Expires: 09/08/2025 BUN (Blood Urea Nitrogen) Lab Routine 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) Expected: 06/10/2025, Expires: 09/08/2025 Calcium, Total Lab Routine 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) Expected: 06/10/2025, Expires: 09/08/2025 CBC no call back, reflex T/S HGB <8 Lab Routine 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) Expected: 06/10/2025, Expires: 09/08/2025 Creatinine with Estimated GFR Lab Routine 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) Expected: 06/10/2025, Expires: 09/08/2025 Glucose, Fasting Lab Routine 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) Abnormal Finding Of Blood Chemistry Unspecified Expected: 06/10/2025, Expires: 09/08/2025 Magnesium Lab Routine 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) Expected: 06/10/2025, Expires: 09/08/2025 Potassium Lab Routine 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) Expected: 06/10/2025, Expires: 09/08/2025 Sodium Lab Routine 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) Expected: 06/10/2025, Expires: 09/08/2025 LD (Lactate Dehydrogenase) Lab Routine 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) Expected: 06/10/2025, Expires: 09/08/2025 Fungal Culture, Routine Microbiology Routine 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) Expected: 06/10/2025, Expires: 09/08/2025 Pneumocystis PCR Microbiology Routine 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) Expected: 06/10/2025, Expires: 09/08/2025 Pneumonia Panel, PCR Microbiology Routine 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) Expected: 06/10/2025, Expires: 09/08/2025 Bacterial Culture, Aerobic + Susceptibility, Respiratory Microbiology Routine 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) Expected: 06/10/2025, Expires: 09/08/2025 Gram Stain Microbiology Routine 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) Expected: 06/10/2025, Expires: 09/08/2025 (1, 3) Nteu-B-Kijlkg (Fungitell), Serum Microbiology Routine 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) Expected: 06/10/2025, Expires: 09/08/2025 CT Chest Angiogram and Pulmonary Arteries with IV Contrast Imaging RAD - Routine (most inpatients and all outpatients) 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) Expected: 06/25/2025 (Approximate), Expires: 09/08/2026 Scheduled Referrals Name Type Priority Associated Diagnoses Order Schedule Pharmacy - Medication therapy management - transplant office visit (clinic) Outpatient Referral Routine Expected: 06/10/2025, Expires: 09/08/2025 documented as of this encounter Visit Diagnoses Diagnosis Transplant Bone Marrow Allogeneic (HCC)- Primary Pain Pleuritic Chest 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 [address] [place] [phone] PCP - General Family Medicine 04/25/23 documented as of this encounter
--- OUTSIDE RECORDS SUMMARY | 2025-06-14 18:22 | XMS_ITS | Encounter Summary ---
Author Organization [facility] Address [address] [place] [address] Care Team Providers Care Network Engineer Name Role Phone Renzo Andres M.D. Primary Care Provider Reason for Visit * Reason Onset Date Comments Scheduling 04/29/2025 Encounter Details Date Type Department Care Team (Late st Contact Info) Description 04/29/2025 Clinical Communication Division of Hematology in [place], [place] [address] [place] [phone] Jessica Rousseau M.B.B.S. [address] [place] [phone] Scheduling Social History Tobacco Use Types Packs/Day Years Used Date Smoking Tobacco: Never Smokeless Tobacco: Never Alcohol Use Standard Drinks/Week Comments Yes 0 (1 standard drink = 0.6 oz pur e alcohol) social [facility] Utilities Answer Date Recorded In the past 12 months has e [employer], gas, oil, or water company threatened to [...] have a [facility] place to live 05/28/2025 Education Answer Date Recorded What is the highest level of school you have completed or the highest degree you have received? 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 200 [place] [phone] 06/15/2025 9:45 AM CDT Hospital Encounter Outpatient Procedure Center in [place], [place] [address] [place] [phone] Jessica Rousseau M.B.B.S. [address] [place] [phone] 06/15/2025 2:00 PM CDT [facility] in [place], [place] [address] [place] [phone] Jessica Rousseau M.B.B.S. [address] [place] [phone] 06/24/2025 12:30 PM CDT Clinical Communication Virtual Review in [place], [place] 200 [place] [address] 06/25/2025 8:10 AM CDT Lab Department of Laboratory Medicine and Pathology, [facility], in [place], [place] [address] [place] [phone] Tessa Jesus APRN, C.N.P., D.N.P. [address] [place] [phone] 06/25/2025 9:00 AM CDT [facility] in [place], [place] [address] [place] [phone] Tessa Jesus APRN, C.N.P., D.N.P. [address] [place] [phone] 06/25/2025 9:30 AM CDT Nurse Only Pedro sanchez [facility] for Transplantation and Clinical Regeneration in [place], [place] [address] [place] [phone] Tessa Jesus APRN, C.N.P., D.N.P. [address] [place] [phone] 06/25/2025 10:30 AM CDT Office Visit [facility] in [place], [place] [address] [place] [phone] Jessica Rousseau M.B.B.S. [address] [place] [phone] 06/25/2025 12:00 PM CDT Appointment Department of Radiology, [facility], in [place], [place] [address] [place] [phone] Arlen James APRN C.N.P., D.N.P. [address] [place] [phone] 06/25/2025 12:40 PM CDT Appointment Department of Cardiovascular Diseases in [place], [place] [address] [place] [phone] Analia Carter APRN, C.N.P. [address] [place] [phone] Discharge Disposition: Home or Self Care 06/26/2025 10:00 AM CDT Telemedicine Department of Palliative Care in [place], [place] [address] [place] [phone] Isabel Sellers M.D. [address] [place] [phone] Debbie Shay M.D. [address] [place] [phone] 08/12/2025 10:40 AM CDT Nurse Only Section of Infectious Diseases in [place], [place] [address] [place] [address] Jessica Rousseau M.B.B.S. [address] [place] [phone] documented as of this encounter Visit Diagnoses Not on filedocumented in this encounter Additional Health Concerns Infection Onset Date Last Indicated Resolved Time Protective Environment 03/02/2023 03/02/2023 Assessment Noted Time PHQ-9 Depression Total Score: 2 12/10/19 25 2:46 PM GLASS RIBBON MACHINE OPERATOR ASSISTANT documented as of this encounter Care Teams Network Engineer Relationship Specialty Start Date End Date Renzo Andres M.D. [address] [place] [phone] PCP - General Family Medicine 04/25/23 documented as of this encounter
--- OUTSIDE RECORDS SUMMARY | 2025-06-14 18:22 | XMS_ITS | Encounter Summary ---
Author Organization [facility] Address [address] [place] [address] Care Team Providers Care Cuff Cutter Name Role Phone Renzo Andres M.D. Primary Care Provider Reason for Visit * Reason Onset Date Comments Nurse Assessment 06/12/2025 Abdominal Pain 06/12/2025 Encounter Details Date Type Department Care Team (Latest Contact Info) Description 06/12/2025 Clinical Communication Pedro Fatima [place] for Transplantation and Clinical Regeneration in [place], [place] [address] [place] [address] Daniela Mercer R.N., BMT-CN [address] [place] [address] Nurse Assessment; Abdominal Pain Social History Tobacco Use Types Packs/Day [...] things needed for daily living? No 06/12/2025 [facility] Utilities Answer Date Recorded In the past 12 months has e [employer], gas, oil, or water [employer] threatened to shut off services in your home? No 06/12/2025 Depression Answer Date Recor ded PHQ-9 Total Score (max 27) 2 12/10 Housing Stability Answer Date Recorded What is your living situation today? I have a [facility] place to live 06/12/2025 Education Answer Date Recorded What is the highest level of school you have completed or the highest degree you have received? Some college, no degree 04/24/2019 Comments No Sex and Gender Information Value Date Recorded Sex Assigned at Female 12/26/2018 8:37 PM TRUCK TERMINAL MANAGER Legal Sex Female 2:43 PM TRUCK TERMINAL MANAGER Gender Identity Female 12/26/2018 8:37 PM TRUCK TERMINAL MANAGER Sexual Orientation Choose not to disclose 2020 3:46 PM CDT documented as of this encounter Miscellaneous Notes * Telephone Encounter - Daniela Mercer R.N., BMT-CN - 06/12/2025 2:[address] Rousseau She needs to come back here for evaluation and workup if she continues to have abdominal pain and feels poorly. History she was to start budesonide 6 mg on 06/08 but her pharmacy at home didn't have it needed to be ordered so she never started it She then was told to stop her pred and she didn't restart it with not having the budesonide She has been having abdominal cramping not feeling well no diarrhea she has been taking compazine for nausea daily this has not changed She is losing weight her eating has declined. * Telephone Encounter - Daniela Mercer R.N., DANNI - 06/12/2025 12:41 PM CDT Her symptoms today Called her back again today She is not feeling well Symptoms Continues to have abdominal cramping Passing gas Eating small amounts continues to loose weight BM yesterday formed Abdomen is tender to touch Nausea no change compazine once daily helps Dilaudid she tried yesterday with minimal results just made her sleepy Her back and scalp are itchy no rash Pred 40 mg Still holding budesonide Please advise thanks Evangelina documented in this encounter Plan of Treatment Upcoming Encounters Date Type Department Care Team (Latest Contact Info) Description 06/12/2025 11:59 PM CDT Anesthesia Event Outpatient Procedure Center in [place], [place] [address] [place] [address] Kristin Friend M.D. [address] [place] [phone] 06/15/2025 9:45 AM CDT Hospital Encounter Outpatient Procedure Center in [place], [place] [address] [place] [phone] Jessica Rousseau M.B.B.S. [address] [place] [phone] 06/15/2025 2:00 PM CDT Office Visit Pedro Fatima [place] for Transplantation and Clinical Regeneration in [place], [place] [address] [place] [address] Jessica Rousseau M.B.B.S. [address] [place] [phone] 06/24/2025 12:30 PM CDT Clinical Communication Virtual Review in [place], [place] 200 [place] [phone] 06/25/2025 8:10 AM CDT Lab Department of Laboratory Medicine and Pathology, [facility], in [place], [place] [address] [place] [address] Tessa Jesus APRN, C.N.P., D.N.P. [address] [place] [phone] 06/25/2025 9:00 AM CDT Office Visit [facility] for Transplantation and Clinical Regeneration in [place], [place] [address] [place] [address] Tessa Jesus APRN, C.N.P., D.N.P. [address] [place] [phone] 06/25/2025 9:30 AM CDT Nurse Only [facility] for Transplantation and Clinical Regeneration in [place], [place] [address] [place] [address] Tessa Jesus APRN, C.N.P., D.N.P. [address] [place] [phone] 06/25/2025 10:30 AM CDT Office Visit [facility] for Transplantation and Clinical Regeneration in [place], [place] [address] [place] [address] Jessica Rousseau M.B.B.S. [address] [place] [phone] 06/25/2025 12:00 PM CDT Appointment Department of Radiology, [facility], in [place], [place] [address] [place] [phone] Arlen James APRN, C.N.P., D.N.P. [address] [place] [phone] 06/25/2025 12:40 PM CDT Appointment Department of Cardiovascular Diseases in [place], [place] [address] [place] [phone] Analia Carter APRN, C.N.P. [address] [place] [phone] Discharge Disposition: Home or Self Care 06/26/2025 10:00 AM CDT Telemedicine Department of Palliative Care in [place], [place] [address] [place] [phone] Isabel Sellers M.D. [address] [place] [phone] Debbie Shay M.D. [address] [place] [phone] 08/12/2025 10:40 AM CDT Nurse Only Section of Infectious Diseases in [place], [place] [address] [place] [phone] Jessica Rousseau M.B.B.S. [address] [place] [phone] documented as of this encounter Visit Diagnoses Not on filedocumented in this encounter Additional Health Concerns Infection Onset Date Last Indicated Resolved Time Protective Environment 03/02/2023 03/02/2023 Assessment Noted Time PHQ-9 Depression Total Score: 2 12/10/19 25 2:46 PM TRUCK TERMINAL MANAGER documented as of this encounter Care Teams Cuff Cutter Relationship Specialty Start Date End Date Renzo Andres M.D. NPAmanda: [phone] [address] [place] [address] [place] [phone] PCP - General Family Medicine 04/25/23 documented as of this encounter
--- OUTSIDE RECORDS SUMMARY | 2025-06-14 18:22 | XMS_ITS | Encounter Summary ---
Author Organization [facility] Address [address] [place] [address] Care Team Providers Care Rivet Tosser Name Role Phone Renzo Andres M.D. 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, [facility], Ninth Floor [address] [place] [address] Ladonna Constantino, RKatalinaN. 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) Social History Tobacco Use Types Packs/Day Years Used Date Smoking Tobacco: Never Smokeless Tobacco: Never Alcohol Use Standard Drinks/Week Comments Yes 0 (1 standard drink = 0.6 oz pur e alcohol) social [facility] Utilities [...] Sex Assigned at Female 12/26/2018 8:37 PM ENVIRONMENTAL MONITORING TECHNICIAN Legal Sex Female 2:43 PM ENVIRONMENTAL MONITORING TECHNICIAN Gender Identity Female 12/26/2018 8:37 PM ENVIRONMENTAL MONITORING TECHNICIAN Sexual Orientation Choose not to disclose 2020 3:46 PM CDT documented as of this encounter Plan of Treatment Upcoming Encounters Date Type Department Care Team (Latest Contact Info) Description 06/12/2025 11:59 PM CDT Anesthesia Event Outpatient Procedure Center in [place], [place] [address] [place] [phone] Kristin Friend M.D. [address] [place] [phone] 06/15/2025 9:45 AM CDT Hospital Encounter Outpatient Procedure Center in [place], [place] [address] [place] [phone] Jessica Rousseau M.B.B.S. [address] [place] [phone] 06/15/2025 2:00 PM CDT [facility] in [place], [place] [address] [place] [phone] Jessica Rousseau M.B.B.S. [address] [place] [phone] 06/24/2025 12:30 PM CDT Clinical Communication Virtual Review in [place], [place] 200 [place] [address] 06/25/2025 8:10 AM CDT Lab Department of Laboratory Medicine and Pathology, [facility], in [place], [place] [address] [place] [phone] Tessa Jesus APRN, C.N.P., D.N.P. [address] [place] [phone] 06/25/2025 9:00 AM CDT [facility] [place], [place] [address] [place] [phone] Tessa Jesus APRN, C.N.P., D.N.P. [address] [place] [phone] 06/25/2025 9:30 AM CDT Nurse Only [facility] in [place], [place] [address] [place] [address] Tessa Jesus APRN, C.N.P., D.N.P. [address] [place] [phone] 06/25/2025 10:30 AM CDT Office Visit [facility] Transplantation and Clinical Regeneration in [place], [place] [address] [place] [phone] Jessica Rousseau M.B.BKatalinaSKatalina [address] [place] [phone] 06/25/2025 12:00 PM CDT Appointment Department of Radiology, [facility], in [place], [place] [address] [place] [phone] Arlen James APRN, C.N.P., D.N.P. [address] [place] [phone] 06/25/2025 12:40 PM CDT Appointment Department of Cardiovascular Diseases in [place], [place] [address] [place] [phone] Analia Carter APRN, C.N.P. [address] [place] [phone] Discharge Disposition: Home or Self Care 06/26/2025 10:00 AM CDT Telemedicine Department of Palliative Care in [place], [place] [address] [place] [phone] Isabel Sellers M.D. [address] [place] [phone] Debbie Shay M.D. [address] [place] [phone] 08/12/2025 10:40 AM CDT Nurse Only Section of Infectious Diseases in [place], [place] [address] [place] [phone] Jessica Rousseau M.B.BKatalinaS. [address] [place] [phone] Scheduled Referrals Name Type Priority Associated Diagnoses [...] Total Score: 2 12/10/19 25 2:46 PM ENVIRONMENTAL MONITORING TECHNICIAN documented as of this encounter Care Teams Rivet Tosser Relationship Specialty Start Date End Date Renzo Andres M.D. [address] [place] [phone] PCP - General Family Medicine 04/25/23 documented as of this encounter
--- OUTSIDE RECORDS SUMMARY | 2025-06-14 18:23 | XMS_ITS | Encounter Summary ---
Author Organization [facility] Address [address] [place] [address] Care Team Providers Care Nutritionalist Name Role Phone Renzo Andres M.D. Primary Care Provider Reason for Visit * Reason Onset Date Comments Nurse Assessment 06/02/2025 Encounter Details Date Type Department Care Team (Latest Contact Info) Description 06/02/2025 Clinical Communication Pedro Fatima [facility] Trans[facility] and Clinical Regeneration in [place], [place] [address] [place] [phone] Transplant, Coordinator, RFritz Nurse Assessment Social History Tobacco Use Types Packs/Day Years Used Date Smoking Tobacco: Never Smokeless Tobacco: Never Alcohol Use Standard Drinks/Week Comments Yes 0 (1 standard drink = 0.6 oz pur e alcohol) social [facility] Utilities Answer Date Recorded In the [...] living situation today? [facility] 05/28/2025 Education Answer Date Recorded What is the highest level of school you have completed or the highest degree you have received? Some college, no degree 04/24/2019 Comments No Sex and Gender Information Value Date Recorded Sex Assigned at Female 12/26/2018 8:37 PM CORRESPONDENCE TRANSCRIBER Legal Sex Female 2:43 PM CORRESPONDENCE TRANSCRIBER Gender Identity Female 12/26/2018 8:37 PM CORRESPONDENCE TRANSCRIBER Sexual Orientation Choose not to disclose 2020 3:46 PM CDT documented as of this encounter Miscellaneous Notes * Telephone Encounter - Elise Pizarro, RKatalinaN. - 06/02/2025 3:56 PM CDT SUBJECTIVE CHIEF COMPLAINT / REASON FOR CALL Nurse Assessment ASSESSMENT Feels weak Feels nauseous Pain right in the center of her chest and radiates up to her throat States it doesn't feel like acid Warm shower makes it better or a warm compress EGD was done previously Denies diarrhea Nausea on and off; taking compazine q 6 hr Weak and tired. Denies it feeling like anything she has felt before. Chest pain was 5/10 today. ER did not find anything. Denies SOB, lightheadedness, dizziness, or other pain. PLAN Patient already had a virtual visit scheduled with BMT tomorrow. Will change the virtual visit to an in person visit with labs prior. Will send to [facility] to see if any further labs are needed. Patient agrees to report back to the ER if chest pain worsens or she develops any further symptoms such as SOB or chest tightness. Disposition/Recommendation: Appointment changed to in person visit on 06/03/25. Information/Education: patient/caller able to teach back. Caller agreeable to plan of care: yes. The following references were used: nursing clinical judgement. documented in this encounter Plan of Treatment Upcoming Encounters Date Type Department Care Team (Latest Contact Info) Description 06/12/2025 11:59 PM CDT Anesthesia Event Outpatient Procedure Center in [place], [place] [address] [place] [phone] Kristin Friend M.D. [address] [place] [phone] 06/15/2025 9:45 AM CDT Hospital Encounter Outpatient Procedure Center in [place], [place] [address] [place] [address] Jessica Rousseau M.B.B.S. [address] [place] [phone] 06/15/2025 2:00 PM CDT Office [facility] in [place], [place] [address] [place] [phone] Jessica Rousseau M.B.B.S. [address] [place] [phone] 06/24/2025 12:30 PM CDT Clinical Communication Virtual Review in [place], [place] 200 [place] [phone] 06/25/2025 8:10 AM CDT Lab Department of Laboratory Medicine and Pathology, [facility] in [place], [place] [address] [place] [phone] Tessa Jesus APRN, C.N.P., D.N.P. [address] [place] [phone] 06/25/2025 9:00 AM CDT Office [facility] in [place], [place] [address] [place] [phone] Tessa Jesus APRN, C.N.P., D.N.P. [address] [place] [phone] 06/25/2025 9:30 AM CDT Nurse Only [facility] in [place], [place] [address] [place] [phone] Tessa Jesus APRN, C.N.P., D.N.P. [address] [place] [phone] 06/25/2025 10:30 AM CDT Office [facility] in [place], [place] [address] [place] [phone] Jessica Rousseau M.B.BKatalinaS. [address] [place] [phone] 06/25/2025 12:00 PM CDT Appointment Department of Radiology, [facility], in [place], [place] [address] [place] [phone] Arlen James APRN, C.N.P., D.N.P. [address] [place] [phone] 06/25/2025 12:40 PM CDT Appointment Department of Cardiovascular Diseases in [place], [place] [address] [place] [phone] Analia Carter APRN, C.N.P. [address] [place] [phone] Discharge Disposition: Home or Self Care 06/26/2025 10:00 AM CDT Telemedicine Department of Palliative Care in [place], [place] [address] [place] [phone] Isabel Sellers M.D. [address] [place] [phone] Debbie Shay M.D. [address] [place] [phone] 08/12/2025 10:40 AM CDT Nurse Only Section of Infectious Diseases in [place], [place] [address] [place] [phone] Jessica Rousseau M.B.B.S. [address] [place] [phone] documented as of this encounter Visit Diagnoses Not on filedocumented in this encounter Additional Health Concerns Infection Onset Date Last Indicated Resolved Time Protective Environment 03/02/2023 03/02/2023 Assessment Noted Time PHQ-9 Depression Total Score: 2 12/10/19 25 2:46 PM CORRESPONDENCE TRANSCRIBER documented as of this encounter Care Teams Nutritionalist Relationship Specialty Start Date End Date Renzo Andres M.D. [address] [place] [address] [place] [phone] PCP - General Family Medicine 04/25/23 documented as of this encounter
[2025-06-14 18:24] VITALS: BP 149/97; PULSE 99; RESP 16; TEMP 35.9; O2SAT 96; BMI 33.9
--- NOTE | 2025-06-14 18:42 | ED.GENADULT ---
HPI - General Adult General Chief complaint: Anxiety Stated complaint: chest pain Time Seen by Provider: 06/14/25 18:22 Source: patient Mode of arrival: ambulatory Limitations: no limitations History of Present Illness HPI narrative: 35-year-old female presenting today with chest pain. This is patient's if ER visit this month, 4th 1 for chest pain. This pain began this morning. It is lasting longer than her usual episodes of pain so she became concerned presented for evaluation. It is substernal located towards the top of the sternum and radiates up into her throat which has been her usual presentation. 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 No fevers or chills. No nausea vomiting. No coughing. Patient was last seen here 6 days ago where she had a complete workup including chest and abdomen CT scan. Patient has had thorough cardiac workups including troponins, D-dimers and chest x-rays with her previous visits which have all been unremarkable. I discussed this with the patient today and asked her how she would like to proceed. She stated that she would like to have an EKG done and she feels like that would bring her some peace of mind. Asked her if she would like to do a complete workup again including blood work and she felt that an EKG would be sufficient. Given her repeated workups in the last 2 weeks, I do not think that repeating her workup today would yield any results. Related Data Home Medications ?Medication ?Instructions ?Recorded ?Confirmed duloxetine 60 mg capsule,delayed mg PO 08/06/22 release acyclovir 400 mg tablet 400 mg PO BID 05/31/25 06/14/25 aripiprazole 10 mg tablet 10 mg PO DAILY 05/31/25 06/14/25 buprenorphine 5 mcg/hour weekly 1 patch topical chronic pain 05/31/25 transdermal patch hydromorphone 1 mg/mL oral liquid 0.5 mg PO DAILY PRN pain 05/31/25 06/02/25 ketoconazole 2 % shampoo topical 05/31/25 ondansetron 4 mg disintegrating 4 - 8 mg PO Q8H PRN nausea/vomiting 05/31/25 06/14/25 tablet pantoprazole 40 mg tablet,delayed 40 mg PO BID 05/31/25 06/14/25 release penicillin V potassium 500 mg 500 mg PO BID 05/31/25 06/14/25 tablet posaconazole 100 mg tablet,delayed mg PO 05/31/25 release prochlorperazine maleate 10 mg 10 mg PO Q6H PRN 05/31/25 06/14/25 tablet budesonide 3 mg mg PO 06/14/25 capsule,delayed,extended release prednisone 10 mg tablet PO 06/14/25 sulfamethoxazole 400 1 tab PO DAILY 06/14/25 06/14/25 mg-trimethoprim 80 mg tablet Allergies Allergy/AdvReac Type Severity Reaction Status Date / Time grapefruit Allergy Intermediate other Verified 06/08/25 14:16 amoxicillin Allergy Mild other Verified 06/08/25 14:16 bupropion (From Wellbutrin) Allergy Mild other Verified 06/08/25 14:16 Review of Systems Status of ROS: Reports: 10 or more systems reviewed and unremarkable except as noted in History and below [facility] Social History Smoking Status: Never smoker Do you use any of these nicotine containing products: None Second hand tobacco smoke exposure: No How often do you have a drink containing alcohol: never How often do you have six or more drinks on one occasion: Never AUDIT-C Alcohol total score: 0 Non-prescribed substance use: denies use service: No Exam Narrative: Exam Narrative: Well-nourished well-developed patient in no acute distress. Alert and oriented. Answers questions appropriately. Mood and affect are appropriate. Thoughts are goal oriented and rational. No tangential or magical thinking noted. Patient speaks in full sentences without needing to catch her breath. HEENT: Normocephalic atraumatic. Right eye esotropia. Conjunctivae are moist without any icterus noted. Moist mucous membranes. Posterior pharynx is normal. Cardiovascular: Heart is regular rate and rhythm S1 and S2 are present without any murmurs. Lungs: Clear to auscultation bilaterally no wheezes rhonchi or rales are appreciated. Patient takes deep breaths without any discomfort. I cannot reproduce her pain with palpation. Abdomen: Soft and nontender nondistended with normal bowel sounds. Skin is well perfused. Const: Vital Signs, click to edit/add: Vital Signs - 24 hr 06/14/25 18:24 Temperature 96.7 F L Pulse Rate [Pulse Oximeter] 99 Respiratory Rate 16 Blood Pressure [Ri ght Upper Arm] 149/97 H Pulse Oximetry 96 Oxygen Delivery Me thod Room Air Course Course ED Course: EKG, read by me, shows normal sinus rhythm with a pulse of 84. Normal QRS, QTC and NH intervals. Vital Signs Vital signs: Initial Vital Signs Temperature 96.7 F L 06/14/25 18:24 Temperature Source Temporal Artery Scan 06/14/25 18:24 Pulse Rate 99 06/14/25 18:24 Respiratory Rate 16 06/14/25 18:24 Blood Pressure 149/97 H 06/14/25 18:24 Blood Pressure Mean 114 H 06/14/25 18:24 Blood Pressure Position Sitting 06/14/25 18:24 Pulse Oximetry 96 06/14/25 18:24 Oxygen Delivery Method Room Air 06/14/25 18:24 Vital Signs Temperature 96.7 F L 06/14/25 18:24 Pulse Rate 99 06/14/25 18:24 Respiratory Rate 16 06/14/25 18:24 Blood Pressure 149/97 H 06/14/25 18:24 Pulse Oximetry 96 06/14/25 18:24 Oxygen Delivery Method Room Air 06/14/25 18:24 Temperature 96.7 F L 06/14/25 18:24 Pulse Rate 99 06/14/25 18:24 Respiratory Rate 16 06/14/25 18:24 Blood Pressure 149/97 H 06/14/25 18:24 Pulse Oximetry 96 06/14/25 18:24 Oxygen Delivery Method Room Air 06/14/25 18:24 Medical Decision Making MDM Narrative Medical decision making narrative: 35-year-old female with recurrent chest pain. Symptoms do not suggest acute coronary syndrome, not consistent with angina. Previous workups in the last 2 weeks have been unremarkable. Previous workups have been negative for findings suggestive of myocarditis or pericarditis. We have found no evidence of pneumonia, pneumothorax, pulmonary edema or pleural effusions. There have been no evidence of rib fractures or other bony abnormalities. As patient does not have any ripping or tearing symptoms that would suggest an aortic dissection, multiple negative D-dimers in the last 2 weeks. This would also speaks against PE. Patient has no lung symptoms which would suggest asthma, bronchospasm or pneumonia. There have been no skin changes suggesting infection such as cellulitis or shingles. Patient is currently on a daily and acid and had a recent EGD that was normal. Unclear what causes her discomfort at this time. ECG Data Attestation: I personally reviewed and interpreted this ECG as follows: Discharge Plan Discharge Clinical Impression: Atypical chest pain Patient Disposition: Home, Self-Care Condition: Stable Additional Instructions: EKG was normal today. Recommend follow-up as scheduled at [facility]. Prescriptions: No Action duloxetine 60 mg capsule,delayed release(DR/EC) PO acyclovir 400 mg tablet 400 mg PO BID aripiprazole 10 mg tablet 10 mg PO DAILY buprenorphine 5 mcg/hour patch weekly 1 patch topical ketoconazole 2 % shampoo topical penicillin V potassium 500 mg tablet 500 mg PO BID prochlorperazine maleate 10 mg tablet 10 mg PO Q6H PRN pantoprazole 40 mg tablet,delayed release (DR/EC) 40 mg PO BID ondansetron 4 mg tablet,disintegrating 4 - 8 mg PO Q8H PRN (Reason: nausea/vomiting) hydromorphone 1 mg/mL liquid 0.5 mg PO DAILY PRN (Reason: pain) posaconazole 100 mg tablet,delayed release (DR/EC) PO prednisone 10 mg tablet PO sulfamethoxazole-trimethoprim 400-80 mg tablet 1 tab PO DAILY budesonide 3 mg capsule,delayed,extend.release PO Follow Up/Referrals: Anny Matthews NP [Primary Care Provider, Family Practice] Stand Alone Forms: [facility] Info Instructions
== END 2025-06-14 19:22 | disposition home or self-care (01) ==
PROVIDERS: Emergency Provider Family Medicine; PCP Registered Nurse
DX: R07.89 Other chest pain (principal)
CPT/HCPCS: 99284

== ENCOUNTER 2025-06-17 12:42 | Emergency (ER) | payer MEDICARE, BC, SELFPAY ==
--- OUTSIDE RECORDS SUMMARY | 2025-06-17 12:45 | XMS_ITS | Clinical Summary ---
Author Organization [place] Address [address] [place] [address] Care Team Providers Care Marriage Counselor Name Role Phone System, Provider Not In [...] Description 07/07/2025 2:40 PM CDT Office Visit [address] [place] [phone] Madeleine Roberts MD [address] [place] [address] [place] [phone] Health Maintenance Due Date Last Done Comments [...] 08/02/2023, 019 Insurance [facility] [place]: [id number] [place] [phone] MEDICARE [facility] Address: [id number] [place] [phone] MEDICARE Care Teams Marriage Counselor Relationship Specialty Start Date End Date System, Provider Not In PCP - General Clinic 06/08/22
--- OUTSIDE RECORDS SUMMARY | 2025-06-17 12:45 | XMS_ITS | Clinical Summary ---
Author Organization [facility] Address [address] [place] [address] Care Team Providers Care Workers Compensation Claims Analyst Name Role Phone Antoinette Palacio PhD, LP Unavailable [phone] Shweta Graciakim Huber LUGGER Unavailable Jesika Watt RD Unavailable [phone] Staff, Other Clinical Unavailable UnavailErmelinda Cadet MD [...] Encounters Date Type Department Care Team Description 06/17/2025 Telephone [facility] [address] [place] [address] Renita Pichardo PsyD, LP Late Cancel Appointment 06/08/2025 11:15 AM CDT Telemedicine [facility] [address] [place] [address] Renita Pichardo PsyD, LP Psychotherapy 06/08/2025 Nurse Triage [facility] [address] [place] [address] Ermelinda Pierre MD Appointment 06/05/2025 1:00 PM CDT Telemedicine [facility] [address] [place] [address] Felicia Weathers NP Follow Up; Medication Management; Telehealth 06/05/2025 Travel 06/01/2025 8:45 AM CDT Telemedicine [facility] [address] [place] [address] Renita Pichardo PsyD, LP Psychotherapy 05/29/2025 Telephone [facility] [address] [place] [address] Iris Victor, [facility] Care Coordination (Re Engagement ) 05/28/2025 Telephone [facility] [address] [place] [address] Renita Pichardo PsyD, LP MAILE (Regarding appointment) 05/20/2025 1:45 PM CDT Telemedicine [facility] [address] [place] [address] Renita Pichardo PsyD, LP Psychotherapy 05/12/2025 1:45 PM CDT Telemedicine [facility] [address] [place] [address] Renita Pichardo PsSudeep, LP Psychotherapy 05/08/2025 Telephone [facility] [address] [place] [address] Felicia Weathers NP Follow Up 05/06/2025 Telephone [facility] [address] [place] [address] Ermelinda Pierre MD ACC Order Request 05/04/2025 11:15 AM CDT Telemedicine [facility] [address] [place] [address] Renita Pichardo PsyD, LP Psychotherapy 04/20/2025 11:15 AM CDT Telemedicine [facility] [address] [place] [address] KyleeRenita pires PsyD, LP Psychotherapy 04/06/2025 11:15 AM CDT Telemedicine [facility] [address] [place] [address] Renita Pichardo PsSudeep, LP Psychotherapy 03/23/2025 11:15 AM CDT Telemedicine [facility] [address] [place] [address] Renita Pichardo PsSudeep, LP Psychotherapy; [facility] from Last 3 Months Immunizations Immunization [...] Average Number of Drinks Not on file 05/10/2 022 Frequency of Binge Drinking Not on [...] on file Legal Sex Female 5:23 AM ENTRY LEVEL ASSISTANT MANAGER Gender Identity Not on file Sexual Orientation [...] 36.2 C (97.1 F) 11/21/2023 9:09 AM ENTRY LEVEL ASSISTANT MANAGER Respiratory Rate 18 11/21/2023 9:09 AM ENTRY LEVEL ASSISTANT MANAGER Oxygen Saturation 98% 06/23/2024 10:48 AM CDT Inhaled Oxygen Concentration - - Weight 99.1 kg (218 lb 8 oz) 06/23/2024 10:48 AM CDT Height 172 cm (5' 7.72) 06/23/2024 10:48 AM CDT Body Mass Index 33.5 06/23/2024 10:48 AM CDT Plan of Treatment Upcoming Encounters Date Type Department Care Team (Late st Contact Info) Description 06/19/2025 9:30 AM CDT Telemedicine [facility] [address] [place] [address] Renita Pichardo PsyD, LP [address] [address] 06/22/2025 11:15 AM CDT Telemedicine [facility] [address] [place] [address] Renita Pichardo PsyD, LP [address] [address] 06/29/2025 11:15 AM CDT Telemedicine [facility] [address] [place] [address] Renita Pichardo PsyD, LP [address] [address] 08/28/2025 1:00 PM CDT Telemedicine [facility] [address] [place] [address] Felicia Weathers, MUSTAPHA [address] [place] [address] Health Maintenance Due Date Last Done Comments [...] CDT Need for hepatitis C screening test DIRECTOR EMPLOYMENT THIN PREP PAP SCREEN IMAGED Routine 11/25/2013 11:15 AM ENTRY LEVEL ASSISTANT MANAGER Screening for malignant neoplasm of the cervix ANTI HIV 1/2 Routine 12/26/2010 5:05 PM ENTRY LEVEL ASSISTANT MANAGER Supervision of normal first (HC) from Last 3 Months or Most Recently Relevant to Health Maintenance Results * ANTI HCV (08/02/2023 1:57 PM CDT) HEPATITIS C ANTIBODY Non-Reacti ve Non-React nina 08/03/2023 3:36 PM CDT [facility] Comment:Please note, per www [...] us Estefany BLAND SEND OUTS Final Result [facility] SENDOUT INTERNAL ZIP [id number] [address] [place] [address] * DIRECTOR EMPLOYMENT THIN PREP PAP SCREEN IMAGED (11/25/2013 11:15 AM ENTRY LEVEL ASSISTANT MANAGER) CYTOLOGY CYTOPATHOLOGY REPORT [facility] Status: Final Status [id number] CLINICAL INFORMATION Last Date of LMP :11/17/13 Last Pap Date :03/03/2011 Last Pap Result :NIL ABN [place]/Bx Past 5 YRS :None Hormone Usage :BCP/OCP/Patch/Rin g Menstrual Status :Regular Periods [place]/Bx done today :No Additional Information :None given [...] malignant lesions. COLLECTED:11/25/13 ACCESSIONED: 11/26/13 SIGNED: 12/02/13 [facility] PAP [place] CODE NIL [facility] Tissue specimen (specimen) (Cervical/Vagina l) 11/25/2013 11:15 AM ENTRY LEVEL ASSISTANT MANAGER 11/25/2013 11:12 AM ENTRY LEVEL ASSISTANT MANAGER us Cecile Sorensen Julissa PATHOLOGY/CYTOLOGY Final Resu lt [facility] INTERNAL ZIP [address] [place] [address] * ANTI HIV 1/2 (12/26/2010 5:05 PM ENTRY LEVEL ASSISTANT MANAGER) ANTI HIV 1/2 Non-reacti ve [facility] Blood specimen (specimen) BLOOD SPECIMEN / Unknown 12/26/2010 5:05 PM ENTRY LEVEL ASSISTANT MANAGER 12/26/2010 4:55 PM ENTRY LEVEL ASSISTANT MANAGER us Ladonna Nathan PROBATION SUPERVISOR SEND OUTS Final Result [facility] INTERNAL ZIP [id number] [address] from Last 3 Months or Most Recently Relevant to Health Maintenance Insurance MEDICARE [place] ONLY MEDICARE PART A HB ONLY MEDICARE PART B HB ONLY [facility] [place] [phone] (Home) ATTN: FRANK WHITE [address] [place] [address] Care Teams Workers Compensation Claims Analyst Relationship Specialty Start Date End Date Ermelinda Pierre [place] [address] PCP - General Family Practice 06/23/24 Antoinette Palacio, PhD, LP Psychologist Psychology 04/24/12 Gracia Rock CNS [address] [place], [place] [phone] Consulting Physician Clinical Nurse Specialist 07/07/[address] [place] [address] Registered Dietitian Record Changer Assembler 07/07/22 Staff, Other Clinical . Therapist Mental Health 07/03/22
[2025-06-17 12:46] VITALS: BP 150/99; PULSE 105; RESP 18; TEMP 36.1; O2SAT 96; BMI 33.6
--- NOTE | 2025-06-17 14:22 | ED_ITS ---
HPI - General Adult General Date Seen: 06/17/25 Chief complaint: Abdominal Pain Stated complaint: abdominal and chest pain Time Seen by Provider: 06/17/25 13:34 Source: patient Mode of arrival: ambulatory Limitations: no limitations History of Present Illness HPI narrative: Patient is a 35-year-old female presenting to the emergency department for abdominal pain and chest pain. She has a history of CML. The chest pain has been chronic for the past month and does not seem much different than normal she states. She has been seen in this emergency department multiple times this month for this chest pain. States the abdominal pain insert going on for the past couple weeks. She went to [facility], where she typically gets her care, and had a CT scan done last week showing constipation. She states since then she has had multiple large bowel movements and is now having some diarrhea. Has been taking MiraLax. Was told today stop the MiraLax due to the diarrhea. Describes as watery diarrhea. Feels like the pain has not gotten any better and states it might feel little bit worse. Her pain is the bilateral lower quadrants. Still has an appendix. Denies pain like this before. No other concerns noted at this time denies fevers, chills, nausea, headache, vision changes, weakness, numbness, dysuria, polyuria, vaginal bleeding or discharge. States she was told to come to the emergency department by [facility] for pain control Related Data Home Medications ?Medication ?Instructions ?Recorded ?Confirmed duloxetine 60 mg capsule,delayed mg PO 08/06/22 release acyclovir 400 mg tablet 400 mg PO BID 05/31/2506/14 aripiprazole 10 mg tablet 10 mg PO DAILY 05/31/2505/20 buprenorphine 5 mcg/hour weekly 1 patch topical chroni c pain 05/31/25 transdermal patch hydromorphone 1 mg/mL oral liquid 0.5 mg PO DAILY PRN pain 05/31/25 06/02/25 ketoconazole 2 % shampoo topical 05/31/25 ondansetron 4 mg disintegrating 4 - 8 mg PO Q8H PRN na usea/vomiting 05/31/25 06/14/25 tablet pantoprazole 40 mg tablet,delayed 40 mg PO BID 5 06/14/25 release penicillin V potassium 500 mg 500 mg PO BID 05/31/25 0 06/14/25 tablet posaconazole 100 mg tablet,delayed mg PO 05/31/25 release prochlorperazine maleate 10 mg 10 mg PO Q6H PRN 06/14/25 tablet budesonide 3 mg mg PO 06/14/25 capsule,delayed,extended release prednisone 10 mg tablet PO 06/14/25 sulfamethoxazole 400 1 tab PO DAILY 06/14/2505/20 mg-trimethoprim 80 mg tablet Previous Rx's ?Medication ?Instructions ?Recorded ketorolac 10 mg tablet 10 mg PO Q6H PRN pain #20 ta bs 06/17/25 Allergies Allergy/AdvReac Type Severity Reaction Status Date / Time grapefruit Allergy Intermediate other Verified 06/08/25 14:16 amoxicillin Allergy Mild other Verified 06/08/25 14:16 bupropion (From Wellbutrin) Allergy Mild other Verified 06/08/25 14:16 Review of Systems Status of ROS: Reports: 10 or more systems reviewed and unremarkable except as noted in History and below PFSH PFS Social History Smoking Status: Never smoker Do you use any of these nicotine containing products: None Second hand tobacco smoke exposure: No How often do you have a drink containing alcohol: never How often do you have six or more drinks on one occasion: Never AUDIT-C Alcohol total score: 0 Non-prescribed substance use: denies use service: No Exam Narrative: Exam Narrative: Const: Well-nourished, Well-developed, in mild distress Eyes: PERRL, no conjunctival injection, and symmetrical lids HENT: Atraumatic external nose and ears. Moist mucous membranes. Neck: Symmetric, trachea midline, No thyromegaly. CVS: RRR, No murmurs or gallops. Peripheral pulses 2+ and equal in all extremities RESP: Unlabored respiratory effort. Clear to auscultation bilaterally. GI: Lower abdominal tenderness, Nondistended, No rebound or guarding. MSK:Extremities w/o deformity, Normal Active ROM Skin: Warm, Dry. No rashes or lesions. Neuro: Normal Muscle tone, No focal neurological deficits. Psych: Awake, Alert, & Oriented x3. Appropriate mood and affect. Const: Vital Signs, click to edit/add: Vital Signs - 24 hr 06/17/25 12:46 06/17/25 14:46 Temperature 97 F L 98.7 F Pulse Rate [Pulse Oximeter] 105 H 72 Respiratory Rate 18 18 Blood Pressure [Ri ght Upper Arm] 150/99 H 127/88 Pulse Oximetry 96 96 Oxygen Delivery Me thod Room Air Room Air Course Vital Signs Vital signs: Initial Vital Signs Temperature 97 F L 06/17/25 12:46 Temperature Source Temporal Artery Scan 06/17/25 12:46 Pulse Rate 105 H 06/17/25 12:46 Respiratory Rate 18 06/17/25 12:46 Blood Pressure 150/99 H 06/17/25 12:46 Blood Pressure Mean 116 H 06/17/25 12:46 Pulse Oximetry 96 06/17/25 12:46 Oxygen Delivery Method Room Air 06/17/25 12:46 Vital Signs Temperature 97 F L 06/17/25 12:46 Pulse Rate 105 H 06/17/25 12:46 Respiratory Rate 18 06/17/25 12:46 Blood Pressure 150/99 H 06/17/25 12:46 Pulse Oximetry 96 06/17/25 12:46 Oxygen Delivery Method Room Air 06/17/25 12:46 Temperature 98.7 F 06/17/25 14:46 Pulse Rate 72 06/17/25 14:46 Respiratory Rate 18 06/17/25 14:46 Blood Pressure 127/88 06/17/25 14:46 Pulse Oximetry 96 06/17/25 14:46 Oxygen Delivery Method Room Air 06/17/25 14:46 Medications Administered Medications: Discontinued Medications Generic Name Dose Route Start Last Admin Trade Name Freq PRN Reason Stop Dose Admin Ketorolac Tromethamine 30 mg 06/17/25 14:14 06/17/25 14:43 Ketorolac 30 Mg/Ml Inj IM 06/17/25 14:15 30 mg ONCE ONE Administration Medical Decision Making MDM Narrative Medical decision making narrative: Patient is a 35-year-old female presenting for abdominal pain. Pain is in her lower abdomen. Has been having this pain for a while now and has already had a CT scan done. A concern for appendicitis is relatively low considering the pain is bilateral and again she did just have a CT scan for this same pain. I believe and I CT scan would be unnecessary radiation at this time. She is in agreement. Will check lab work prior and re-evaluate need for imaging. She does have chest pain but this has been evaluated multiple times. Will just do an EKG and troponin. She asked for pain medication and states she is able to take NSAIDs. Toradol ordered. Lab work returned showing no acute concerning abnormalities. She is feeling better after the Toradol. EKG and troponin showed no concerning abnormalities. Urinalysis shows no acute concerning abnormalities. Note constant at this do believe she is safe for discharge. [facility] center pharmacy. Lab Data Labs: Lab Results 06/17/25 06/17/25 Range/Units 14:35 16:20 WBC 6.83 (4.50-11.00) K/uL RBC 4.57 (4.00-5.20) m/uL Hgb 12.4 (12.0-16.0) gm/dL Hct 37.8 (33.0-51.0) % MCV 83 (80-100) fL MCH 27 (26-34) pg MCHC 33 (32-36) gm/dL RDW Coeff of [place] 14.1 (11.5-15.5) % Plt Count 204 (140-440) K/uL Neut % (Auto) 85.9 H (42.0-72.0) % Lymph % (Auto) 7.9 L (20-44) % [place] % (Auto) 2.9 (0.0-11.0) % Eos % (Auto) 0.6 (0.0-7.0) % Baso % (Auto) 0.1 (0.0-3.0) % Neut # (Auto) 5.90 (1.7-7.0) K/uL Lymph # (Auto) 0.50 L (0.90-2.90) K/uL [place] # (Auto) 0.20 (0.00-0.90) K/UL Eos # (Auto) 0.04 (0.00-0.50) K/uL Baso # (Auto) 0.01 (0.00-0.30) K/uL Abs Immat Gran (auto) 0.18 (0.00-0.30) K/uL Imm/Tot Granulo (auto) 2.6 % Sodium 136 (135-149) mmol/L Potassium 4.4 (3.6-5.1) mmol/L Chloride 103 (96-114) mmol/L Carbon Dioxide 26 (20-32) mmol/L Anion Gap 7 (7-15) mEq/L BUN 12 (5-24) mg/dL Creatinine 0.7 (0.5-1.5) mg/dL Estimated Creat Clear 112.08 Estimated GFR 115 ml/min Glucose 123 H (60-115) mg/dL Calcium 9.4 (8.4-10.6) mg/dL Magnesium 2.5 (1.5-2.6) mg/dL Total Bilirubin 0.3 (0.1-1.5) mg/dL AST 32 (12-35) U/L ALT 31 (4-35) U/L Alkaline Phosphatase 86 (40-150) U/L Troponin I < 0.01 (0.01-0.04) ng/mL Total Protein 7.4 (6.0-8.3) g/dL Albumin 4.3 (3.3-5.0) g/dL Lipase 129 (23-300) U/L Urine Color Yellow (Yellow) Urine Appearance Clear (Clear) Urine pH 7.5 (5.0-8.5) Ur Specific [place] 1.020 (1.000-1.030) Urine Protein Negative (Negative) Urine Glucose (UA) Negative (Negative) Urine Ketones Negative (Negative) Urine Blood Negative (Negative) Urine Nitrite Negative (Negative) Urine Bilirubin Negative (Negative) Urine Urobilinogen 0.2 (0.2-1.0) Ur Leukocyte Esterase Negative (Negative) ECG Data Attestation: I personally reviewed and interpreted this ECG as follows: Prior ECG tracings: available for review Interpretation: Normal sinus rhythm with rate 67 beats per minute, normal intervals, normal axis, no ST or T-wave abnormalities. Appears similar previous EKGs on file Discharge Plan Discharge Clinical Impression: Abdominal pain Qualifiers: Abdominal location: lower abdomen, unspecified Qualified Code(s): R10.30 - Lower abdominal pain, unspecified Patient Disposition: Home, Self-Care Condition: Improved Instructions: Abdominal Pain (ED) Additional Instructions: Take Tylenol and the Toradol. Do not use other NSAIDs such as ibuprofen naproxen while using Toradol. If This abdominal pain persist follow-up with the primary care provider is Prescriptions: New ketorolac 10 mg tablet 10 mg PO Q6H PRN (Reason: pain) Qty: 20 0RF Rx Instructions: maximum total duration of 5 days from all oral, intranasal, or parenteral formulations No Action duloxetine 60 mg capsule,delayed release(DR/EC) PO acyclovir 400 mg tablet 400 mg PO BID aripiprazole 10 mg tablet 10 mg PO DAILY buprenorphine 5 mcg/hour patch weekly 1 patch topical ketoconazole 2 % shampoo topical penicillin V potassium 500 mg tablet 500 mg PO BID prochlorperazine maleate 10 mg tablet 10 mg PO Q6H PRN pantoprazole 40 mg tablet,delayed release (DR/EC) 40 mg PO BID ondansetron 4 mg tablet,disintegrating 4 - 8 mg PO Q8H PRN (Reason: nausea/vomiting) hydromorphone 1 mg/mL liquid 0.5 mg PO DAILY PRN (Reason: pain) posaconazole 100 mg tablet,delayed release (DR/EC) PO prednisone 10 mg tablet PO sulfamethoxazole-trimethoprim 400-80 mg tablet 1 tab PO DAILY budesonide 3 mg capsule,delayed,extend.release PO Follow Up/Referrals: Anny Matthews NP [Primary Care Provider, Family Practice] Stand Alone Forms: [facility] Info Instructions
[2025-06-17 14:45] LABS: Hematocrit 37.8 % (33.0-51.0); Hemoglobin* 12.4 gm/dL (12.0-16.0); Immature Granulocytes Abs Auto 0.18 K/uL (0.00-0.30); Immature Granulocytes Pct Auto 2.6 %; Mean Corpuscular HGB Conc 33 gm/dL (32-36); Mean Corpuscular Hemoglobin 27 pg (26-34); Mean Corpuscular Volume 83 fL (80-100); RDW Coefficient of Variation % 14.1 % (11.5-15.5); Red Blood Count 4.57 m/uL (4.00-5.20); White Blood Count* 6.83 K/uL (4.50-11.00)
[2025-06-17 14:46] VITALS: BP 127/88; PULSE 72; RESP 18; TEMP 37.1; O2SAT 96
[2025-06-17 14:50] LABS: Lymphocytes Absolute Auto 0.50 K/uL (0.90-2.90); Slide Review Reflex No
[2025-06-17 15:03] LABS: Albumin* 4.3 g/dL (3.3-5.0); Chloride* 103 mmol/L (96-114); Sodium* 136 mmol/L (135-149)
[2025-06-17 15:04] LABS: Potassium* 4.4 mmol/L (3.6-5.1)
[2025-06-17 15:06] LABS: Alanine Aminotransferase* 31 U/L (4-35); Alkaline Phosphatase* 86 U/L (40-150); Anion Gap 7 mEq/L (7-15); Aspartate Amino Transferase* 32 U/L (12-35); Bilirubin Total* 0.3 mg/dL (0.1-1.5); Blood Urea Nitrogen* 12 mg/dL (5-24); Carbon Dioxide* 26 mmol/L (20-32); Creatinine* 0.7 mg/dL (0.5-1.5); Est. Creatinine Clearance* 112.08; Estimated Glomerular Filt Rate 115 ml/min; Total Protein* 7.4 g/dL (6.0-8.3)
[2025-06-17 15:07] LABS: Calcium* 9.4 mg/dL (8.4-10.6); Glucose* 123 mg/dL (60-115)
[2025-06-17 16:28] LABS: Appearance Urine Clear (Clear)
[2025-06-17 22:58] LABS: Ur HCG Qualitative* Negative (Negative)
== END 2025-06-17 16:55 | disposition home or self-care (01) ==
PROVIDERS: Emergency Provider Student in an Organized Health Care Education/Training Program; PCP Registered Nurse
DX: R10.9 Unspecified abdominal pain (principal); R07.9 Chest pain, unspecified
CPT/HCPCS: 36415; 80053; 81001; 81025; 83690; 83735; 84484; 85025; 87086; 93005; 96372; 99284; J1885

== ENCOUNTER 2025-06-29 21:07 | Emergency (ER) | payer MEDICARE, BC, SELFPAY ==
--- OUTSIDE RECORDS SUMMARY | 2025-05-17 13:59 | XMS_ITS | Encounter Summary ---
Author Organization [facility] Address [address] [place] [address] Care Team Providers Care Pie Maker Machine Name Role Phone Renzo Andres M.D. 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 I have a [facility] place to live 12/19/2024 Education Answer Date Recorded What is the highest level of school you have completed or the highest degree you have received? Some college, no degree 04/24/2019 Comments No Sex and Gender Information Value Date Recorded Sex Assigned at Female 12/26/2018 8:37 PM PIN CLEANER Legal Sex Female 2:43 PM PIN CLEANER Gender Identity Female 12/26/2018 8:37 PM PIN CLEANER Sexual Orientation Choose not to disclose 2020 3:46 PM CDT documented as of this encounter Last Filed Vital Signs Vital Sign Reading Time Taken Comments Blood Pressure 129/94 05/17/2025 2:02 PM CDT Pulse 104 05/17/2025 2:02 PM CDT Temperature 36.9 C (98.4 F) 05/17/2025 2:02 PM CDT Respiratory Rate 14 05/17/2025 2:02 PM CDT Oxygen Saturation 98% 05/17/2025 2:02 PM CDT Inhaled Oxygen Concentration - - Weight 103 kg (226 lb 3.1 oz) 05/17/2025 2:02 PM CDT Height - - Body Mass Index 34.24 04/08/2025 11:32 AM CDT documented in this encounter Medications at Time of Discharge acyclovir (Zovirax) 400 mg tabletIndication s: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 60 tablet 11 04/15/2025 ARIPiprazole (Abilify) 10 mg tablet Take 1 tablet (10 mg total) by mouth daily. Dose change 12/02/2024 30 tablet 5 04/15/2025 cholecalciferol (Vitamin D3) 50 mcg (2,000 Unit) tablet Take 50 mcg by mouth daily. 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 120 capsule 5 04/29/2025 loperamide (Imodium A-D) 2 mg capsule Take 1 capsule (2 mg total) by mouth every 2 (two) hours as needed for diarrhea. Take with occurrence of diarrhea. May take up to 16 mg, or 8 doses daily. 05/17/2025 melatonin 5 mg tablet Take 5 mg by mouth at bedtime. 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 60 tablet 11 04/29/2025 sulfamethoxazole -trimethoprim (Bactrim) 400-80 mg per tabletIndication s:Transplant Bone Marrow Allogeneic (HCC),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) Take 1 tablet by mouth daily. 60 tablet 1 05/13/2025 gabapentin (Neurontin) 300 mg capsule Take 1-2 capsules (300-600 mg total) by mouth 2 (two) times a day. 04/29/25: Increase dose to 300 mg in AM and 600 mg at bedtime. 90 capsule 3 04/29/2025 5 HYDROmorphone (Dilaudid) 1 mg/mL liquidIndication s:Chronic Pain/Nonacute Pain Take 0.5 mL (0.5 mg total) by mouth daily as needed for pain Indication: Chronic Pain/Nonacute Pain. 10 mL 05/13/2025 5 LORazepam (Ativan) 0.5 mg tablet Take 1 tablet (0.5 mg total) by mouth at bedtime as needed for anxiety. 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 90 tablet 04/15/2025 5 documented as of this encounter Progress Notes * Renita Potts, KARON, C.N.P., D.N.P. - 05/17/2025 2:00 PM CDT SUBJECTIVE TRANSPLANT PHYSICIAN Dr. Jessica Rousseau, pager [phone] CHIEF COMPLAINT/REASON FOR VISIT Ms. Radha Martinez is a 35 y.o. female with a past medical history significant for CML who is seentoday for ongoing follow up status post a matched, unrelated donor allogeneic stem cell transplant.Currently Day +158 HISTORY OF PRESENT ILLNESS Please refer to multiple prior notes in EMR for complete hematologic history: Ms. Martinez is a 35 y.o. 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 At the time of diagnosis, there was grade 3 reticulin fibrosis noted. 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 The BCR-ABL1 P [...] t(9;22) metaphases. NGS is positive for ASXL1 p.[id number]*12 (20%) and p.[id number]* (3%). 06/17/2024: feeling quite symptomatic since the [...] Access Camargo CVC placed on 12/03/24 by [facility]. Social Work Seen and cleared [...] prophylaxis: Ursodiol 600 mg two times daily. NMDP ID Number: [id number] [...] cloacae UTI, treated with Ciprofloxacin INTERVAL HISTORY 05/17/25 Day+158 Ms. Martinez reports to outpatient BMT clinic today. She reports 4 days of loose stool, averaging 4times a day. Denies abdominal pain or cramping associated with diarrhea. Patient states tolerating oral diet with about 50 oz. of fluid consumed yesterday. She denies nausea or vomiting. She denies fever, but reports night sweats with chills intermittently since 05/11. She denies no known ill exposure or traveling. She denies no new skin changes, rash or itching. Denies headache, pre-syncope/dizziness/lightheadedness, oral/throat pain, cough, shortness of breath, chest pain, palpitations, or newbleeding. Patient reports ongoing pain management with bilateral lower extremity dull and achy pain. She reports pain 6/10 pain today prior to taking afternoon gabapentin dosing. 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 She reports currently taking Cymbalta 120 mg daily and Gabapentin 600 mg TID. She reports taking one dose of hydromorphone 0.5 mg daily at night. With discussion today holding off on making any adjustments to current pain plane with plan for follow-up with palliative care on 05/25. Rule out infectious cause of diarrhea. Infectious work-up with blood cultures, c-diff, and lactate completed as plan with visit. REVIEW OF SYSTEMS: A 10-point review of systems was conducted. Positive findings are noted in the interval history above. I reviewed the medication list, allergies and past medical/surgical history. OBJECTIVE Vitals: 05/17/25 1402 BP: (!) 129/94 Pulse: 104 Resp: 14 Temp: 36.9 ??C Weight: 103 kg (05/17/2025 2:02 PM) Height: 173.1 cm (04/08/2025 11:32 AM) PHYSICAL EXAM General: Patient is alert, oriented in no acute distress Skin: No rash present. Eyes: Anicteric. ENT: Oral mucosa and oropharynx examined and without erythema, ulceration, or lesions. Vessels: Radial and Pedal pulses 2+. Heart: RRR, no murmur, normal S1, S2. Lungs: Normal respiratory effort, lungs clear to auscultation bilaterally. Abdomen: Bowel sounds normoactive. Abdomen is soft and without masses or tenderness. Extremities: No edema, cyanosis, or clubbing Karnofsky Performance Score: 80% DIAGNOSTICS Recent Results (from the past 24 hours) Clostridioides (Clostridium) Difficile Toxin, Molecular Detection, PCR, Feces Collection Time: 05/17/25 2:42 PM Specimen: Stool Result Value C. difficile Toxin, F Negative Current Outpatient Medications Medication Instructions acyclovir (ZOVIRAX) 400 mg, oral, 2 times daily ARIPiprazole (ABILIFY) 10 mg, oral, Daily, Dose change 12/02/2024 cholecalciferol (VITAMIN D3) 50 mcg, Daily DULoxetine (CYMBALTA) 120 mg, oral, Daily gabapentin (NEURONTIN) 300-600 mg, oral, 2 times daily, 04/29/25: Increase dose to 300 mg in AM and 600 mg at bedtime. 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 [id number]% donor DNA and approximately 0% recipient DNA. - Continue to check RT PCR BCR-ABL on peripheral blood every 6 weeks undetected on April 29 - Peripheral sort chimerism on 04/29: CD33 100% donor DNA and 0% recipient DNA - Last BM Bx from 02/18/25 was normal, no BCR-ABL1 detected. - Repeat BM biopsy scheduled June 15, 2025 # Diarrhea, Query infectious vs. GI GVHD # Chills and night sweats - C-diff negative from 05/17. GIPP if able to collect. Rule out infectious cause of diarrhea. PRN Imodium as needed. - Infectious work-up with peripheral blood cultures from 05/17 pending. Lactate 1.6, nonelevated. # GVHD Prophylaxis - Received PTCy; MMF was stopped per protocol. -Tacrolimus discontinue 04/17/2025 ACUTE GVHD (CIBMTR CRITERIA) Current Severity 05/17/2025 Skin Stage Stage 0 (No GVHD rash) Liver Stage Stage 0 (Normal bilirubin) Gut Stage Stage 1 (Diarrhea 500-999 mL/day or persistent nausea) Overall Grade Grade 0 (No acute GVHD) Change from previous evaluation: NA # Antimicrobial Prophylaxis - Continues on Acyclovir, Penicillin VK, Bactrim, and Posaconazole. - Anticipate discontinuing Bactrim and Posaconazole approx 3 months after discontinuation of tacrolimus (approx Jul 16). At that time may also consider stopping Acyclovir as she received two doses of Shingrix already. # Mild transaminitis, resolved - ALT and AST are marginally elevated 04/29. - resolved on 05/17. # Insomnia - Continues on Melatonin 5 mg qHS. # Peripheral neuropathy - Continues on duloxetine, pregabalin, and hydromorphone PRN. - Currently taking Gabapentin 600 mg TID last increased on 04/29/15. - Previous discussion that hydromorphone should not be used for chronic pain. Hydromorphone was refilled for short tem pain relief. Goal to wean off hydromorphone while increasing the dose of Gabapentin. She reports currently taking 0.5 mg at bedtime. - Plan to follow-up with Palliative care on 05/25. Appreciate their recs with long-term pain management plan. # Vitamin D Deficiency - Continues on [...] right eye. Wears glasses. - Followed by [facility] in [place], [place]. - Patient will notify team if any vision changes. # Blood Products # TACO - Requires infusion of platelets at a slower rate # Disposition - Follow-up labs, pharmacy, RN/provider in three weeks. - Local labs at [facility] in 10 days. Renita Potts APRN, C.N.P., D.N.P. documented in this encounter Plan of Treatment Upcoming Encounters Date Type Department Care Team (Latest Contact Info) Description 06/30/2025 10:20 AM CDT Lab Department of Laboratory Medicine and Pathology, [facility], in [place], [place] [address] [place] [phone] Jessica Rousseau M.B.B.S. [address] [place] [phone] 06/30/2025 11:00 AM CDT Nurse Only Pedro Fat[facility] in [place], [place] [address] [place] [phone] Jessica Rousseau M.B.B.S. [address] [place] [phone] 06/30/2025 11:30 AM CDT Office Visit [facility] Transplantation and Clinical Regeneration in [place], [place] [address] [place] [phone] Jessica Rousseau M.B.B.S. [address] [place] [phone] 06/30/2025 3:00 PM CDT Appointment Department of Radiology, [facility], in [place], [place] [address] [place] [phone] Carlee Armas APRN, C.N.P., D.N.P., M.S.N. [address] [place] [phone] 07/03/2025 8:00 AM CDT Telemedicine Department of Palliative Care in [place], [place] [address] [place] [phone] Yary Landa D.O. [address] [place] [phone] 07/15/2025 9:00 AM CDT Telemedicine [facility] Transplantation and Clinical Regeneration in [place], [place] [address] [place] [phone] Jessica Rousseau M.B.B.S. [address] [place] [phone] 08/11/2025 9:00 AM CDT Nurse Only Section of Infectious Diseases in [place], [place] [address] [place] [phone] Jessica Roussaeu M.B.B.S. [address] [place] [phone] 08/11/2025 10:20 AM CDT Comprehensive Visit Division of Gastroenterology in [place], [place] [address] [place] [phone] Jessica Rousseau M.B.B.S. 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 05/22/2025 5:02 PM CDT DTL Blood (Blood, Peripheral Draw) 05/17/2025 4:04 PM CDT 05/17/2025 4:50 PM CDT Comment:Specimen Source Site : Blood Renita Potts APRN, C.N.P. , D.N.P. LAB MICROBIOLOGY - GENERAL ORDERABLES Final Result Performing Organization Address [facility] Co de Phone Number [facility] [address] [place] [address] * Bacteria / Helen Culture, Blood #1 (05/17/2025 3:43 PM CDT) Pathologist [facility] Bacteria/Yulia da Culture, Blood No growth after 5 days of incubation. 05/22/2025 5:02 PM CDT [facility] Blood (Blood, Peripheral Draw) 05/17/2025 3:43 PM CDT 05/17/2025 4:50 PM CDT Comment:Specimen Source Site : Blood Renita Potts APRN, C.N.P. , D.N.P. LAB MICROBIOLOGY - GENERAL ORDERABLES Final Result Performing Organization Address [facility] Co de Phone Number [facility] [address] [place] [address], [facility] [address] [place] [address] * Lactate for Sepsis with Reflex (05/17/2025 3:43 PM CDT) Pathologist [facility] Lactate, P 1.6 0.5 - 2.2 mmol/L 05/17/2025 4:55 PM CDT DTL Blood (Blood, Venous) 05/17/2025 3:43 PM CDT 05/17/2025 4:41 PM CDT Renita Potts APRN, C.N.P., D.N.P. LAB BLOOD N ON ADD-ON Final Result Performing Organization Address [facility] Co de Phone Number [facility] [address] [place] [address], [place] [address] * Magnesium (05/17/2025 3:43 PM CDT) Magnesium, S 2.3 1.7 - 2.3 mg/dL 05/17/2025 4:59 PM CDT DTL Blood (Blood, Venous) 05/17/2025 3:43 PM CDT 05/17/2025 4:42 PM CDT us Renita Potts APRN, C.N.P., D.N.P. LAB BLOOD A DD-ON Final Result Performing Organization Address [facility] [place] [place] [address], [place] [address] * Comprehensive Metabolic Panel (05/17/2025 3:43 PM CDT) Potassium, S 4.2 3.6 - 5.2 mmol/L 05/17/2025 4:59 PM CDT DTL Sodium, S 138 135 - 145 mmol/L 05/17/2025 4:59 PM CDT DTL Chloride, S 101 98 - 107 mmol/L 05/17/2025 4:59 PM CDT DTL Bicarbonate, S 23 22 - 29 mmol/L 05/17/2025 4:59 PM CDT DTL Anion Gap 14 7 - 15 05/17/2025 4:59 PM CDT DTL BUN (Blood Urea Nitrogen), S 12 6 - 21 mg/dL 05/17/2025 4:59 PM CDT DTL Creatinine 0.74 0.59 - 1.04 mg/dL 05/17/2025 4:59 PM CDT DTL Estimated GFR (eGFR) >90 >=60 mL/min/BS A 05/17/2025 4:59 PM CDT DTL Comment: Estimated GFR calculated using the 2020 CKD_EPI creatinine equation. Calcium, Total, S 9.3 8.6 - 10.0 mg/dL 05/17/2025 4:59 PM CDT DTL Glucose, S 91 70 - 140 mg/dL 05/17/2025 4:59 PM CDT DTL Protein, Total, S 7.1 6.3 - 7.9 g/dL 05/17/2025 4:59 PM CDT DTL Albumin, S 4.6 3.5 - 5.0 g/dL 05/17/2025 4:59 PM CDT DTL Aspartate Aminotransferase (AST), S 33 8 - 43 U/L 05/17/2025 4:59 PM CDT DTL Alkaline Phosphatase, S 94 35 - 104 U/L 05/17/2025 4:59 PM CDT DTL Alanine Aminotransferase (ALT), S 39 7 - 45 U/L 05/17/2025 4:59 PM CDT DTL Bilirubin, Total, S 0.3 0.0 - 1.2 mg/dL 05/17/2025 4:59 PM CDT DTL Blood (Blood, Venous) 05/17/2025 3:43 PM CDT 05/17/2025 4:42 PM CDT us Renita Potts APRN, C.N.P., D.N.P. LAB BLOOD A DD-ON Final Result [facility] [address] [place] [address], [facility] [address] [place] [address] * CBC no call back, reflex T/S HGB <8 (05/17/2025 3:43 PM CDT) Hemoglobin 12.4 11.6 - 15.0 g/dL 05/17/2025 4:34 PM CDT DTL Hematocrit 38.9 35.5 - 44.9 % 05/17/2025 4:34 PM CDT DTL Erythrocytes 4.71 3.92 - 5.13 x10(12)/L 05/17/2025 4:34 PM CDT DTL MCV 82.6 78.2 - 97.9 fL 05/17/2025 4:34 PM CDT DTL RBC Distrib Width 13.5 12.2 - 16.1 % 05/17/2025 4:34 PM CDT DTL Platelet Count 215 157 - 371 x10(9)/L 05/17/2025 4:34 PM CDT DTL Leukocytes 4.3 3.4 - 9.6 x10(9)/L 05/17/2025 4:34 PM CDT DTL Neutrophils 2.80 1.56 - 6.45 x10(9)/L 05/17/2025 4:34 PM CDT DHPM Lymphocytes 0.96 0.95 - 3.07 x10(9)/L 05/17/2025 4:34 PM CDT DTL Monocytes 0.40 0.26 - 0.81 x10(9)/L 05/17/2025 4:34 PM CDT DTL Eosinophils 0.13 0.03 - 0.48 x10(9)/L 05/17/2025 4:34 PM CDT DTL Basophils 0.03 0.01 - 0.08 x10(9)/L 05/17/2025 4:34 PM CDT DTL Blood (Blood, Venous) 05/17/2025 3:43 PM CDT 05/17/2025 4:26 PM CDT us Renita Potts APRN, C.N.P., D.N.P. LAB BLOOD N ON ADD-ON Final Result [facility] [address] [place] [address], [facility] DTL [facility] [address] [place] [address] DHPM [facility] [address] [place] [address] * Clostridioides (Clostridium) Difficile Toxin, Molecular Detection, PCR, Feces (05/17/2025 2:42 PM CDT) C. difficile Toxin, F Negative Negative 05/17/2025 3:59 PM CDT DTL Stool (Stool) 05/17/2025 2:4 2 PM CDT 05/17/2025 3:13 PM CDT Tiffani Leroy APRN, C.N.P., D.N.P. 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 [address] [place] [phone] PCP - General Family Medicine 04/25/23 documented as of this encounter
--- OUTSIDE RECORDS SUMMARY | 2025-05-20 09:00 | XMS_ITS | Encounter Summary ---
Author Organization [facility] Address [address] [place] [id number] Care Team Providers Care Towerman Name Role Phone Renzo Andres M.D. Primary Care Provider [phone] Reason for Visit * Outpatient (Routine) - Closed Specialty Diagnoses / Procedures Referred By Estefania t Referred To Contact Pharmacy Lito Pollock P.A.-C. [address] [place] [phone] Phone: tel: fax: [facility] Referral ID Status Reason Start Date Expiration Date Visits Re quested Visits Authorized [id number] Closed 04/29/2025 10/29/2026 1 1 Encounter Details Date Type Department Care Team (Latest Contact Info) Description 05/20/2025 9:00 AM CDT [facility] [place], [place] [address] [place] [phone] Lito Pollock P.A.-C. [address] [place] [phone] Nelli Parker, Pharm.D., R.Ph. [address] [place] [phone] Transplant Bone Marrow Allogeneic (HCC) (Primary Dx) Discharge Disposition: Home or Self Care Social History Tobacco Use Types Packs/Day Years Used Date Smoking Tobacco: Never Smokeless Tobacco: Never Alcohol Use Standard Drinks/Week Comments Yes 0 (1 standard drink = 0.6 oz pur e alcohol) social [facility] Utilities Answer Date Recorded In the [...] your living situation today? I have a [facility] place to live 12/19/2024 Education Answer Date Recorded What is the highest level of school you have completed or the highest degree you have received? Some college, no degree 04/24/2019 Comments No Sex and Gender Information Value Date Recorded Sex Assigned at Female 12/26/2018 8:37 PM [employer] Legal Sex Female 2:43 PM [employer]TRY[employer] Gender Identity Female 12/26/2018 8:37 PM [employer] IN[employer]TRY[employer] Sexual Orientation Choose not to disclose 2020 [...] 05/20/2025 9:00 AM CDT Medication Management Services ([facility]) SUBJECTIVE Radha Martinez is a 35 y.o. female, who is seen by the [facility] Pharmacist for targeted medication review. She [...] Camargo; Surgeon: Brianna Hernandez M.D., Ph.D.; Location: [facility] OR [7] Patient Active Problem List [...] Lab Department of Laboratory Medicine and Pathology, [facility] in [place], [place] [address] [place] [phone] Jessica Rousseau M.B.B.S. [address] [place] [phone] 06/30/2025 11:00 AM CDT [facility] [place], [place] [address] [place] [phone] Jessica Rousseau M.B.B.S. [address] [place] [phone] 06/30/2025 11:30 AM CDT Office Visit [facility] in [place], [place] [address] [place] [phone] Jessica Rousseau M.B.B.S. [address] [place] [phone] 06/30/2025 3:00 PM CDT Appointment Department of Radiology, [facility] [place], in [place], [place] [address] [place] [phone] Carlee Armas APRN, C.N.P., D.N.P., M.S.N. [address] [place] [phone] 07/03/2025 8:00 AM CDT Telemedicine Department of Palliative Care in [place], [place] [address] [place] [phone] Yary Landa D.O. [address] [place] [phone] 07/15/2025 9:00 AM CDT Telemedicine [facility] Clinical [facility] in [place], [place] [address] [place] [phone] Jessica Rousseau M.B.B.S. [address] [place] [phone] 08/11/2025 9:00 AM CDT Nurse Only Section of Infectious Diseases in [place], [place] [address] [place] [phone] Jessica Rousseau M.B.B.S. [address] [place] [phone] 08/11/2025 10:20 AM CDT Comprehensive Visit Division of Gastroenterology in [address] [phone] Jessica Rousseau M.B.B.S. [address] [place] [phone] documented as of this encounter Visit Diagnoses Diagnosis Transplant Bone Marrow Allogeneic (HCC)- Primary documented in this encounter Additional Health Concerns Infection Onset Date Last Indicated Resolved Time Protective Environment 03/02/2023 03/02/2023 Assessment Noted Time PHQ-9 Depression Total Score: 2 12/10/19 25 2:46 PM INDIRECT FI[employer] INFANTRYMAN documented as of this encounter Care Teams Towerman Relationship Specialty Start Date End Date Renzo Andres M.D. [address] [place] [address] [place] [phone] PCP - General Family Medicine 04/25/23 documented as of this encounter
--- OUTSIDE RECORDS SUMMARY | 2025-05-20 09:30 | XMS_ITS | Encounter Summary ---
Author Organization [facility] Address [address] [place] [phone] Care Team Providers Care Property Investor Name Role Phone Renzo Andres M.D. Primary Care Provider Reason for Referral * Transplant (Routine) - Closed Specialty Diagnoses / Procedures Referred By Estefania acosta Referred To Contact Transplant Tessa Jesus APRN, C.N.PKatalina, D.N.P. [address] [place] [phone] Phone: tel: fax: [facility] Referral ID Status Reason Start Date Expiration Date Visits Re quested Visits Authorized [id number] Closed 05/20/2025 11/19/2026 1 1 * Outpatient (Routine) - Closed Specialty Diagnoses / Procedures Referred By Contac t Referred To Contact Pharmacy Tessa Jesus APRN, C.N.P., D.N.P. [address] [place] [phone] Phone: tel: fax: [facility] Referral ID Status Reason Start Date Expiration Date Visits Re quested Visits Authorized [id number] Closed 05/20/2025 11/19/2026 1 1 Scheduling Instructions Please schedule with pharmacist for 30 minutes. Patient type: Allo Over 100 Visit Type: Return Scheduling Preferences Option 1: Primary MD only/RN Option 2: Primary MD only/RN Other Scheduling Instructions: Please schedule approximately 1 week after BmBx on 06/15 Primary MD: Dr Rousseau RN Team: t Bmt Team [place] * Transplant (Routine) - Closed Specialty Diagnoses / Procedures Referred By Contac t Referred To Contact Transplant Tessa Jesus APRN, C.N.P., D.N.P. [address] [place] [phone] Phone: tel: fax: [facility] Referral ID Status Reason Start Date Expiration Date Visits Re quested Visits Authorized [id number] Closed 05/20/2025 11/19/2026 1 1 Scheduling Instructions Please schedule with BMT MD for 30 minutes. Patient type: Allo Over 100 Visit Type: Return Scheduling Preferences Option 1: Primary MD only/RN Option 2: Primary MD only/RN Other Scheduling Instructions: Please schedule approximately 1 week after BmBx on 06/15 Primary MD: Dr Rousseau RN Team: [facility] Bmt Team [place] * Transplant (Routine) - Closed Specialty Diagnoses / Procedures Referred By Contac t Referred To Contact Transplant Tessa Jesus APRN C.N.PKatalina, D.N.P. [address] [place] [phone] Phone: tel: fax: [facility] Referral ID Status Reason Start Date Expiration Date Visits Re quested Visits Authorized [id number] Closed 05/20/2025 11/19/2026 1 1 Scheduling Instructions Please schedule with RNCC for 30 min Patient type: Allo Over 100 Visit Type: Return Scheduling Preferences Option 1: Primary MD only/RN Option 2: Primary MD only/RN Other Scheduling Instructions: Please schedule approximately 1 week after BmBx on 06/15 Primary MD: Dr Rousseau RN Team: Rst Bmt Team [place] Reason for Visit * Reason Comments Nurse Visit * Transplant (Routine) - Closed Specialty Diagnoses / Procedures Referred By Estefania t Referred To Contact Transplant Lito Pollock P.A.-C. [address] [place] [phone] Phone: tel: fax: [facility] Referral ID Status Reason Start Date Expiration Date Visits Re quested Visits Authorized [id number] Closed 04/29/2025 10/29/2026 1 1 Encounter Details Date Type Department Care Team (Latest Contact Info) Description 05/20/2025 9:30 AM CDT [facility] [place], [place] [address] [place] [phone] Lito Pollock P.A.-C. 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 I have a [facility] place to live 12/19/2024 Education Answer Date Recorded What is the highest level of school you have completed or the highest degree you have received? Some college, no degree 04/24/2019 Comments No Sex and Gender Information Value Date Recorded Sex Assigned at Female 12/26/2018 8:37 PM OIL HEATERMAN Legal Sex Female 2:43 PM OIL HEATERMAN Gender Identity Female 12/26/2018 8:37 PM OIL HEATERMAN Sexual Orientation Choose not to disclose 2020 3:46 PM CDT documented as of this encounter Progress Notes * Tessa Jesus, KARON, C.N.P., D.N.P. - 05/20/2025 9:30 AM CDT SUBJECTIVE TRANSPLANT PHYSICIAN Dr. Jessica Rousseau, pager [phone] CHIEF COMPLAINT/REASON FOR VISIT Ms. Radha Martinez [...] reticulin fibrosis noted. The cytogenetics identified a [place] chromosome in 20 metaphases. The BCR-ABL1 P [...] t(9;22) metaphases. 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 06/17/2024: feeling quite symptomatic since the [...] [place] CVC placed on 12/03/24 by [facility]. Social Work Seen and cleared on [...] Ursodiol 600 mg two times daily. [facility] ID Number: [id number] [...] HISTORY 05/20/25 Day+161 Radha Martinez presents to [place] [address] for routine follow-up. Main concern today for [...] We will try to arrange a return [place] [address] Soham parekh days after [...] donor DNA and approximately 40% recipient DNA. [id number]% donor DNA and approximately 0% recipient DNA. [...] right eye. Wears glasses. - Followed by [facility] in [place], [place]. - Patient will notify team if [...] as she is on a waitlist with [facility] [place]. GI: experiencing nausea and dry heaving in [...] of Laboratory Medicine and Pathology, [facility] in [place], [place] [address] [place] [phone] Jessica Rousseau M.B.B.S. [address] [place] [phone] 06/30/2025 11:00 AM CDT Nurse Only [facility] in [place], [place] [address] [place] [phone] Jessica Rousseau M.B.B.S. [address] [place] [phone] 06/30/2025 11:30 AM CDT [facility] in [place], [place] [address] [place] [phone] Jessica Rousseau M.B.B.S. [address] [place] [phone] 06/30/2025 3:00 PM CDT Appointment Department of Radiology, [facility], in [place], [place] [address] [place] [phone] Carlee Armas APRN, C.N.P., Heaven.N.P., M.S.N. [address] [place] [phone] 07/03/2025 8:00 AM CDT Telemedicine Department of Palliative Care in [place], [place] [address] [place] [phone] Yary Landa D.O. [address] [place] [phone] 07/15/2025 9:00 AM CDT Telemedicine [facility] for Transplantation and Clinical Regeneration in [place], [place] [address] [place] [phone] Jessica Rousseau M.B.B.S. [address] [place] [phone] 08/11/2025 9:00 AM CDT Nurse Only Section of Infectious Diseases in [place], [place] [address] [place] [phone] Jessica Rousseau M.B.B.S. [address] [place] [phone] 08/11/2025 10:20 AM CDT Comprehensive Visit Division of Gastroenterology in [place], [place] [address] [place] [phone] Jessica Rousseau M.B.B.S. [address] [place] [phone] Scheduled Referrals Name Type Priority Associated Diagnoses [...] Expires: 08/20/2026 documented as of this encounter Results * BCR/ABL1, p210, mRNA Detection, Reverse Street Contractor-PCR (RT-PCR), Quantitative, Monitoring Chronic Myeloid Leukemia (CML) (06/23/2025 8:18 AM CDT) Specimen Type Peripheral blood 06/23 6:03 PM CDT DTL BCR/ABL1, p210 Result see interpretation 06/23/2025 6:03 PM CDT DTL Interpretation Peripheral blood, BCR/ABL1 mRNA [...] other rare BCR-ABL1 transcript isoforms. Signing Pathologist: Jaylin Beltran M.D. 06/23/2025 6:03 PM CDT DTL Comment: ----ADDITIONAL INFORMATION---- Method summary - BCR/ABL1, p210 fusion: The BCR/ABL1 transcript level was evaluated using a quantitative, reverse principal java developer PCR. The analytical sensitivity of this assay [...] all possible fusion forms. Please contact the [facility] at [phone] with questions or if additional testing is required. See the [facility] Interpretive Handbook for method details. The [...] developed and its performance characteristics determined by [facility] in a manner consistent with CLIA requirements. This test has not been cleared or approved by the U.S. Food and Drug Administration. Blood (Blood, Venous) 06/23/2025 8:18 AM CDT 06/23/2025 8:58 AM CDT Tessa Jesus APRN, C.N.P., D.N.P. LAB BLOOD NON ADD-ON Final Result Performing Organization Address City/[facility]/ZIP Co de Phone Number [facility] [address] [place] [address], [facility] DTL [address] [place] [address] * LD (Lactate Dehydrogenase) (06/23/2025 8:18 AM CDT) [facility] Deanna LD 165 122 - 222 U/L 06/23/2025 9:34 AM CDT DTL Blood (Blood, Venous) 06/23/2025 8:18 AM CDT 06/23/2025 8:41 AM CDT Satnam Navarro APRN.N.P., D.N.P. LAB BLOOD NON ADD-ON Final Result [facility] 200 [place] [address], [facility] 200 [place] [address] * Sodium (06/23/2025 8:18 AM CDT) Sodium, S 139 135 - 145 mmol/L 06/23/2025 9:29 AM CDT DTL Blood (Blood, Venous) 06/23/2025 8:18 AM CDT 06/23/2025 8:25 AM CDT Tessa Jesus APRN, C.N.P., D.N.P. LAB BLOOD ADD -ON Final Result Performing Organization Address City/[facility]/ZIP Co de Phone Number [facility] 200 [place] [address], [facility] 200 [place] [address] * Potassium (06/23/2025 8:18 AM CDT) Potassium, S 4.2 3.6 - 5.2 mmol/L 06/23/2025 9:29 AM CDT DT Blood (Blood, Venous) 06/23/2025 8:18 AM CDT 06/23/2025 8:25 AM CDT Tessa Jesus APRN, C.N.P., D.N.P. LAB BLOOD ADD -ON Final Result [facility] 200 [place] [address], [facility] 200 [place] [address] * Magnesium (06/23/2025 8:18 AM CDT) Magnesium, S 2.2 1.7 - 2.3 mg/dL 06/23/2025 9:29 AM CDT DTL Blood (Blood, Venous) 06/23/2025 8:18 AM CDT 06/23/2025 8:25 AM CDT Satnam Navarro APRN.N.P., D.N.P. LAB BLOOD ADD -ON Final Result Performing Organization Address City/[facility]/ZIP Co de Phone Number [facility] 200 [place] [address], [facility] 200 [place] [address] * (ABNORMAL) Glucose, Fasting (06/23/2025 8:18 AM CDT) Glucose, P 153(H) 70 - 100 mg/dL 06/23/2025 9:02 AM CDT DTL Last Intake 1 hr 06/23/2025 8:25 AM CDT DTL Blood (Blood, Venous) 06/23/2025 8:18 AM CDT 06/23/2025 8:25 AM CDT Satnam Navarro APRN.N.P., D.N.P. LAB BLOOD NON ADD-ON Final Result Performing Organization Address City/[facility]/ZIP Co de Phone Number [facility] [address] [place] [address], [place] [address] * Creatinine with Estimated GFR (06/23/2025 8:18 AM CDT) Creatinine 0.91 0.59 - 1.04 mg/dL 06/23/2025 9:29 AM CDT DTL Estimated GFR (eGFR) 84 >=60 mL/min/BSA 06/23/2025 9:29 AM CDT DTL Comment: Estimated GFR calculated using the 2020 CKD_EPI creatinine equation. Blood (Blood, Venous) 06/23/2025 8:18 AM CDT 06/23/2025 8:25 AM CDT Satnam Navarro APRN.N.P., D.N.P. LAB BLOOD ADD -ON Final Result [facility] [address] [place] [address], [facility] DTL [facility] [address] [place] [address] * (ABNORMAL) CBC no call back, reflex T/S HGB <8 (06/23/2025 8:18 AM CDT) Hemoglobin 12.0 11.6 - 15.0 g/dL 06/23/2025 8:52 AM CDT DTL Hematocrit 37.7 35.5 - 44.9 % 06/23/2025 8:52 AM CDT DTL Erythrocytes 4.46 3.92 - 5.13 x10(12)/L 06/23/2025 8:52 AM CDT DTL MCV 84.5 78.2 - 97.9 fL 06/23/2025 8:52 AM CDT DTL RBC Distrib Width 14.3 12.2 - 16.1 % 06/23/2025 8:52 AM CDT DTL Platelet Count 182 157 - 371 x10(9)/L 06/23/2025 8:52 AM CDT DTL Leukocytes 3.6 3.4 - 9.6 x10(9)/L 06/23/2025 8:52 AM CDT DTL Neutrophils 2.43 1.56 - 6.45 x10(9)/L 06/23/2025 8:52 AM CDT DHPM Lymphocytes 0.71(L) 0.95 - 3.07 x10(9)/L 06/23/2025 8:52 AM CDT DTL Monocytes 0.26 0.26 - 0.81 x10(9)/L 06/23/2025 8:52 AM CDT DTL Eosinophils 0.13 0.03 - 0.48 x10(9)/L 06/23/2025 8:52 AM CDT DTL Basophils 0.03 0.01 - 0.08 x10(9)/L 06/23/2025 8:52 AM CDT DTL Blood (Blood, Venous) 06/23/2025 8:18 AM CDT 06/23/2025 8:30 AM CDT Satnam Navarro APRN.N.P., D.N.P. LAB BLOOD NON ADD-ON Final Result [facility] [address] 200 [place] [address] * Calcium, Total (06/23/2025 8:18 AM CDT) Calcium, Total, S 9.4 8.6 - 10.0 mg/dL 06/23/2025 9:29 AM CDT DTL Blood (Blood, Venous) 06/23/2025 8:18 AM CDT 06/23/2025 8:25 AM CDT Satnam Navarro APRN.N.P., D.N.P. LAB BLOOD ADD -ON Final Result Performing Organization Address City/[facility]/ZIP Co de Phone Number [facility] [address] 200 [place] [address] * BUN (Blood Urea Nitrogen) (06/23/2025 8:18 AM CDT) BUN (Blood Urea Nitrogen), S 10 6 - 21 mg/dL 06/23/2025 9:29 AM CDT DTL Blood (Blood, Venous) 06/23/2025 8:18 AM CDT 06/23/2025 8:25 AM CDT Tessa Jesus APRN C.N.P., D.N.P. LAB BLOOD ADD -ON Final Result [facility] [address] [place] [address] * Bilirubin, Total (06/23/2025 8:18 AM CDT) Bilirubin, Total, P 0.2 0.0 - 1.2 mg/dL 06/23/2025 9:13 AM CDT M[facility] Blood (Blood, Venous) 06/23/2025 8:18 AM CDT 06/23/2025 8:42 AM CDT Tessa Jesus APRN, C.N.P., D.N.P. LAB BLOOD ADD -ON Final Result Performing Organization Address City/[facility]/ZIP Co de Phone Number [facility] [address] [place], [place] [phone] [place] [address] 200 [place] [address] * (ABNORMAL) AST (Aspartate Aminotransferase) (06/23/2025 8:18 AM CDT) Aspartate Aminotransferase (AST), P 54(H) 8 - 43 U/L 06/23/2025 9:13 AM CDT [facility] Blood (Blood, Venous) 06/23/2025 8:18 AM CDT 06/23/2025 8:42 AM CDT Tessa Jesus APRN, C.N.P., D.N.P. LAB BLOOD ADD -ON Final Result [facility] [address] [place], [place] [address] [address] [place] [address] * (ABNORMAL) ALT (Alanine Aminotransferase) (06/23/2025 8:18 AM CDT) Alanine Aminotransferase (ALT), S 75(H) 7 - 45 U/L 06/23/2025 9:29 AM CDT DTL Blood (Blood, Venous) 06/23/2025 8:18 AM CDT 06/23/2025 8:25 AM CDT Satnam Navarro APRN.N.P., D.N.P. LAB BLOOD ADD -ON Final Result Performing Organization Address City/[facility]/ZIP Co de Phone Number [facility] [address] 200 [place] [address] * (ABNORMAL) Alkaline Phosphatase (06/23/2025 8:18 AM CDT) Alkaline Phosphatase, S 115(H) 35 - 104 U/L 06/23/2025 9:29 AM CDT DTL Blood (Blood, Venous) 06/23/2025 8:18 AM CDT 06/23/2025 8:25 AM CDT Satnam Navarro APRN.N.P., D.N.P. LAB BLOOD ADD -ON Final Result Performing Organization Address [facility] Co de Phone Number [facility] [address] [place] [address] * Albumin (06/23/2025 8:18 AM CDT) Albumin, S 4.3 3.5 - 5.0 g/dL 06/23/2025 9:29 AM CDT DTL Blood (Blood, Venous) 06/23/2025 8:18 AM CDT 06/23/2025 8:25 AM CDT Tessa Jesus APRN, Satnam.N.P., D.N.P. 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 NPAmanda: [phone] [address] [place] [phone] PCP - General Family Medicine 04/25/23 documented as of this encounter
--- OUTSIDE RECORDS SUMMARY | 2025-05-25 13:45 | XMS_ITS | Encounter Summary ---
Author Organization [facility] Address [address] [place] [address] Care Team Providers Care Railroad Commissioner Name Role Phone Renzo Andres M.D. Primary Care Provider [phone] Encounter Details Date Type Department Care Team (Late st Contact Info) Description 05/25/2025 1:45 PM CDT [facility] in [place], [place] [address] [place] [address] Ta Medrano Social History Tobacco Use Types Packs/Day Years Used Date Smoking Tobacco: Never Smokeless Tobacco: Never Alcohol Use Standard Drinks/Week Comments Yes 0 (1 standard drink = 0.6 oz pur e alcohol) social C Utilities Answer Date Recorded In the past 12 months has e [employer], gas, oil, or water [employer] threatened to shut off services in your [...] Sex Assigned at Female 12/26/2018 8:37 PM SCHOOL COUNSELLOR Legal Sex Female 2:43 PM SCHOOL COUNSELLOR Gender Identity Female 12/26/2018 8:37 PM SCHOOL COUNSELLOR Sexual Orientation Choose not to disclose 2020 3:46 PM CDT documented as of this encounter Progress Notes * Ta Medrano - 05/25/2025 2:05 PM CDT Patient was provided transportation assistance in the form of a gas card for 05/25/25 to assist with gas costs to and from appointments. I informed patient that transportation funds are limited and based on availability and eligibility criteria. Encouraged them to reach out to the patient navigation team with any questions. [facility] [phone]. documented in this encounter Plan of Treatment Upcoming Encounters Date Type Department Care Team (Latest Contact Info) Description 06/30/2025 10:20 AM CDT Lab Department of Laboratory Medicine and Pathology, [facility], in [place], [place] [address] [place] [address] Jessica Rousseau M.B.B.S. [address] [place] [phone] 06/30/2025 11:00 AM CDT Nurse [facility] in [place], [place] [address] [place] [address] Jessica Rousseau M.B.B.S. [address] [place] [phone] 06/30/2025 11:30 AM CDT Office Visit [facility] Transplantation and Clinical Regeneration in [place], [place] [address] [place] [address] Jessica Rousseau M.B.B.S. [address] [place] [phone] 06/30/2025 3:00 PM CDT Appointment Department of Radiology, [facility], in [place], [place] [address] [place] [phone] Carlee Armas APRN, C.N.P., D.N.P., M.S.N. [address] [place] [phone] 07/03/2025 8:00 AM CDT Telemedicine Department of Palliative Care in [place], [place] [address] [place] [phone] Yary Landa D.O. [address] [place] [phone] 07/15/2025 9:00 AM CDT Telemedicine Pedro sanchez [facility] for Transplantation and Clinical Regeneration in [place], [place] [address] [place] [address] Jessica Rousseau M.B.B.S. [address] [place] [phone] 08/11/2025 9:00 AM CDT Nurse Only Section of Infectious Diseases in [place], [place] [address] [place] [address] Jessica Rousseau M.B.B.S. [address] [place] [phone] 08/11/2025 10:20 AM CDT Comprehensive Visit Division of Gastroenterology in [place], [place] [address] [place] [phone] Jessica Rousseau M.B.B.S. [address] [place] [phone] documented as of this encounter Visit Diagnoses Not on filedocumented in this encounter Additional Health Concerns Infection Onset Date Last Indicated Resolved Time Protective Environment 03/02/2023 03/02/2023 Assessment Noted Time PHQ-9 Depression Total Score: 2 12/10/19 25 2:46 PM SCHOOL COUNSELLOR documented as of this encounter Care Teams Railroad Commissioner Relationship Specialty Start Date End Date Renzo Andres M.D. [address] [place] [phone] PCP - General Family Medicine 04/25/23 documented as of this encounter
--- OUTSIDE RECORDS SUMMARY | 2025-05-25 14:00 | XMS_ITS | Encounter Summary ---
Author Organization [facility] Address [address] [place] [id number] Care Team Providers Care Soldering Machine Operator Helper Name Role Phone Renzo Andres M.D. Primary Care Provider [phone] Reason for Referral * Outpatient (Routine) - Authorized Specialty Diagnoses / Procedures Referred By Estefania acosta Referred To Contact Palliative Medicine Felicia Watt APRN, C.N.P., M.S.N. [address] [place] [phone] Phone: tel: fax: [facility] Referral ID Status Reason Start Date Expiration Date V isits Requested Visits Authorized [id number] Authorized 05/25/2025 11/24/2026 1 1 Reason for Visit * Outpatient (Routine) - Closed Specialty Diagnoses / Procedures Referred By Contac t Referred To Contact Palliative Medicine Martine Pardo B.M.BKatalinaS., B.M., B.Ch. [address] [place] [phone] Phone: tel: fax: [facility] Referral ID Status Reason Start Date Expiration Date Visits Re quested Visits Authorized [id number] Closed 04/21/2025 10/21/2026 1 1 Encounter Details Date Type Department Care Team (Late st Contact Info) Description 05/25/2025 2:00 PM CDT Office Visit Department of Palliative Care in [place], [place] [address] [place] [address] Felicia Watt, KARON, C.N.P., M.S.N. [address] [place] [address] Pain Leg Bilateral (Primary Dx); Nausea; Fatigue; Insomnia; Anxiety; Palliative Care Social History Tobacco Use Types Packs/Day Years Used Date Smoking Tobacco: Never Smokeless Tobacco: Never Alcohol Use Standard Drinks/Week Comments Yes 0 (1 standard drink = 0.6 oz pur e alcohol) social [facility] Utilities Answer Date Recorded In the past 12 months has e [employer], gas, oil, or water [employer] threatened to shut off services in your [...] your living situation today? I have a [facility] place to live 12/19/2024 Education Answer Date Recorded What is the highest level of school you have completed or the highest degree you have received? Some college, no degree 04/24/2019 Comments No Sex and Gender Information Value Date Recorded Sex Assigned at Female 12/26/2018 8:37 PM TIRE SERVICE SUPERVISOR Legal Sex Female 2:43 PM TIRE SERVICE SUPERVISOR Gender Identity Female 12/26/2018 8:37 PM TIRE SERVICE SUPERVISOR Sexual Orientation Choose not to disclose 2020 [...] C.N.P., M.S.N. - 05/25/2025 2:00 PM CDT [facility] Outpatient Palliative Care Progress Note The patient verbally consented to an audio recording of their visit to assist with the completion of documentation. Patient: Radha Martinez; 35 y.o.female LOCATION Palliative Care Clinic SUBJECTIVE Radha Martinez is [...] etiology- disease vs. Treatment related pain? [place] PACKING SUPERVISOR Review: We have reviewed the patient's record in the [place] prescription monitoring program 05/25/2025. Opioid Toxicity Review: We have reviewed the risks of opioid therapy and completed an assessment oftoxicities. Opioid Aberrant Use Concerns: None Opioid Risk Score: Last Opioid Risk Tool charting Flowsheet Row Comprehensive Visit from 04/21/2025 in Department of Palliative Care in [place], [place] ORT Total Score (max 26) 2 [...] Lab Department of Laboratory Medicine and Pathology, [facility], in [place] [address] [address] [place] [address] Jessica Rousseau M.B.B.S. [address] [place] [phone] 06/30/2025 11:00 AM CDT Nurse Only [facility] in [place], [place] [address] [place] [phone] Jessica Rousseau M.B.B.S. [address] [place] [phone] 06/30/2025 11:30 AM CDT Office Visit [facility] [place] [place] Trans[facility] and Clinical Regeneration in [place], [place] [address] [place] [phone] Jessica Rousseau M.B.B.S. [address] [place] [phone] 06/30/2025 3:00 PM CDT Appointment Department of Radiology, [facility], in [place], [place] [address] [place] [phone] Carlee Armas APRN, Satnam.N.P., D.N.P., M.S.N. [address] [place] [phone] 07/03/2025 8:00 AM CDT Telemedicine Department of Palliative Care in [place], [place] [address] [place] [phone] Yary Landa D.O. [address] [place] [phone] 07/15/2025 9:00 AM CDT Telemedicine [facility] Transplantation and Clinical Regeneration in [place], [place] [address] [place] [phone] Jessica Rousseau M.B.B.S. [address] [place] [address] 08/11/2025 9:00 AM CDT Nurse Only Section of Infectious Diseases in [place], [place] [address] [place] [address] Jessica Rousseau M.B.B.S. [address] [place] [phone] 08/11/2025 10:20 AM CDT Comprehensive Visit Division of Gastroenterology in [place], [place] [address] [place] [address] Jessica Rousseau M.B.B.S. [address] [place] [phone] Scheduled Referrals Name Type Priority Associated Diagnoses [...] Total Score: 2 12/10/19 25 2:46 PM TIRE SERVICE SUPERVISOR documented as of this encounter Care Teams Soldering Machine Operator Helper Relationship Specialty Start Date End Date Renzo Andres M.D. [address] [place] [phone] PCP - General Family Medicine 04/25/23 documented as of this encounter
--- OUTSIDE RECORDS SUMMARY | 2025-05-28 15:39 | XMS_ITS | Encounter Summary ---
Author Organization [facility] Address [address] [place] [address] Care Team Providers Care Food Dehydrator Operator Name Role Phone Renzo Andres M.D. Primary Care Provider Encounter Details Date Type Department Care Team (Latest Contact Info) Description 05/28/2025 3:39 PM CDT - 05/29/2025 4:32 PM CDT Hospital Encounter [facility], Ninth Floor [address] [place] [address] Tanya Ivey M.D. [address] [place] [address] Discharge Disposition: Home or Self Care Social History Tobacco Use Types Packs/Day Years Used Date Smoking Tobacco: Never Smokeless Tobacco: Never Alcohol Use Standard Drinks/Week Comments Yes 0 (1 standard drink = 0.6 oz pur e alcohol) social [facility] Utilities Answer Date Recorded In [...] your living situation today? I have a [facility] place to live 05/28/2025 Education Answer Date Recorded What is the highest level of school you have completed or the highest degree you have received? Some college, no degree 04/24/2019 Comments No Sex and Gender Information Value Date Recorded Sex Assigned at Female 12/26/2018 8:37 PM COMMUNITY ARTIST Legal Sex Female 2:43 PM COMMUNITY ARTIST Gender Identity Female 12/26/2018 8:37 PM COMMUNITY ARTIST Sexual Orientation Choose not to disclose 2020 [...] AM CDT DISCHARGE SUMMARY BRIEF OVERVIEW Hospital: [facility] Discharge Provider: Tanya Ivey M.D. Primary Team: [facility] Primary Care Providers: Renzo Andres M.D. (General) [address] [place] [phone] Primary Care Provider Primary Care Provider Other Providers: None Admission Date: 05/28/2025 Discharge Date: 05/29/2025 PRINCIPAL DIAGNOSIS Nausea And Vomiting SECONDARY DIAGNOSES Principal Problem: Nausea And Vomiting Active Problems: Pain Neuropathic Depressive Disorder Transplant Stem Cell (HCC) Resolved Problems: * No resolved hospital problems. * DISCHARGE DISPOSITION Home or Self Care [1] ACTIVE ISSUES REQUIRING FOLLOW UP She will continue weekly labs at [facility]. Her [place] 9 appointment is scheduled June 03. OUTPATIENT FOLLOW UP Scheduled Appointments 06/01/2025 1:15 PM Jeaneth Núñez M.B.BKatalinaS., M.S.; RM 204 CMPLX [place] 02 GI Gastroenterology and Hepatology 06/03/2025 10:00 AM TXP BMT ANUPAM 01 [facility] 09 Transplant Blood and Marrow 06/10/2025 1:20 PM IFD IMMUNIZATIONS 01 [facility] Infectious Diseases 06/15/2025 9:45 AM ROOM [place] 07 [place] 705 Procedural 06/24/2025 12:30 PM RST PAL PM MILAN INTAKE VISIT Admitting/Central Scheduling 06/25/2025 8:10 AM LAB BLOOD [facility] Laboratory Medicine 06/25/2025 9:00 AM PHR TXP PHARMACIST [facility] Pharmacy 06/25/2025 9:30 AM TXP BMT NURSE 02 [facility] Transplant Blood and Marrow 06/25/2025 10:30 [...] 27 for nausea. She was started on [id number] mg daily on May 28. The next [...] AM CDT You were discharged from the [facility] Service. Please identify [...] CDT 05/29/2025 5 posaconazole (NoxafiL) [address] tabletIndications:L eukemia [...] SUBJECTIVE TRANSPLANT PHYSICIAN Dr. Jessica Rousseau, pager [phone]. HISTORY OF PRESENT ILLNESS Radha Martinez is [...] donor DNA and approximately 40% recipient DNA. JZ30-% donor DNA and approximately 0% recipient DNA. [...] right eye. Wears glasses. - Followed by [facility] in [place], [place]. - Patient will notify team if any vision changes. # Blood Products # TACO - Requires infusion of platelets at a slower rate # Disposition - Mrs. Martinez will be discharged today. - EGD with biopsy on 06/01/25. - Ch9 video visit on 06/03/25. - Local labs at [facility] [place] on 06/03/25. - She reports that she previously tolerated prednisone well without hyperglycemia. - Borderline hypertension may be related with prednisone. Hopefully will improve with tapering prednisone. documented in this encounter H&P Notes * Renita Potts, KARON, C.N.P., D.N.P. - 05/28/2025 2:57 PM CDT SUBJECTIVE TRANSPLANT PHYSICIAN Dr. Jessica Rousseau, pager [phone] CHIEF COMPLAINT Ms. 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 The BCR-ABL1 P [...] t(9;22) metaphases. 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 06/17/2024: feeling quite symptomatic since the [...] Access [place] CVC placed on 12/03/24 by [facility]. Social Work Seen and cleared [...] prophylaxis: Ursodiol 600 mg two times daily. [facility] ID Number: [id number] [...] donor DNA and approximately 40% recipient DNA. PG62-[id number]% donor DNA and approximately 0% recipient DNA. [...] right eye. Wears glasses. - Followed by [facility] in [place], [place]. - Patient will notify team if [...] has an appetite this morning. She had dominican toast with syrup, fruit, and an kinyarwanda muffin with jelly prior to being NPO. [...] , , Integumentary/Wounds: Lines/Drains/Airways Wound Duration Wound 04/02/25 Incision Iliac crest Right;Posterior bmbx site 99 [...] Muscle Mass: Normal Fluid Accumulation: Absent Reduced Operating System Programmer Strength: Not applicable Estimated Needs: Total Calorie Needs: 6301-6863 calories/day Method to Estimate Energy Needs: Sterling-St Jeor (Basal to Basal + 10%) Weight [...] about patient's nutritional care please contact pager [phone] on weekdays 07:30-16:00 or [phone] on weekends/holidays ([facility]) [phone]. [1] Past Medical History: Diagnosis Date Amblyopia Bilateral Anemia Anxiety Generalized Disorder Depressive Disorder Fibromyalgia 2020 Headache Unspecified Irritable Bowel Syndrome, Unspecified 2015 Leukemia Migraine Headache Other Injury Of Unspecified Body Region Strabismus [2] Past Surgical History: Procedure Laterality Date EYE SURGERY Right 1989 INSERTION CENTRAL VENOUS LINE N/A 12/03/2024 Procedure: INSERTION CENTRAL VENOUS LINE, [place]; Surgeon: Brianna Hernandez M.D., Ph.D.; Location: [facility] [3] Allergies Allergen Reactions Oxycodone GI [...] this encounter Nursing Notes * Jarod Reinoso M.SKatalinaNKatalina, R.N. - 05/29/2025 3:39 PM CDT Problem: [...] Discharge Problem: Risk for Compromised Skin Integrity-Other Readiness Paraprofessional(s) Goal: Risk for Compromised Skin Integrity-Other Readiness Paraprofessional(s) Outcome: Adequate for Discharge Shift Goals: Clinical [...] 26 for nausea. She was started on ovzrqyuipg37 mg daily on May 28. The next [...] Lab Department of Laboratory Medicine and Pathology, [facility] in [place], [place] [address] [place] [address] Jessica Rousseau M.B.B.S. [address] [place] [phone] 06/30/2025 11:00 AM CDT Nurse Only [facility] in [place], [place] [address] [place] [phone] Jessica Rousseau M.B.B.S. [address] [place] [phone] 06/30/2025 11:30 AM CDT Office Visit [facility] in [place], [place] [address] [place] [address] Jessica Rousseau M.B.B.S. [address] [place] [phone] 06/30/2025 3:00 PM CDT Appointment Department of Radiology, [facility], in [place], [place] [address] [place] [address] Carlee Armas APRN, C.N.P., D.N.P., M.S.N. [address] [place] [phone] 07/03/2025 8:00 AM CDT Telemedicine Department of Palliative Care in [place], [place] [address] [place] [address] Yary Landa D.O. [address] [place] [phone] 07/15/2025 9:00 AM CDT Telemedicine [facility] in [place], [place] [address] [place] [address] Jessica Rousseau M.B.B.S. [address] [place] [phone] 08/11/2025 9:00 AM CDT Nurse Only Section of Infectious Diseases in [place], [place] [address] [place] [phone] Jessica Rousseau M.B.B.S. [address] [place] [phone] 08/11/2025 10:20 AM CDT Comprehensive Visit Division of Gastroenterology in [place], [place] [address] [place] [address] Jessica Rousseau M.B.B.S. [address] [place] [address] [place] [phone] documented as of this encounter Procedures Procedure [...] M.P.H. LAB BLOOD ADD-ON F inal Result [facility] [address] [place] [address], [facility] [address] [place] [address] * (ABNORMAL) CBC with Differential, Blood (05/29/2025 [...] ADD-ON F inal Result Performing Organization Address City/[facility]/ZIP Co de Phone Number [facility] [address] [place] [address], [facility] DTL [facility] [address] [place] [address] * Lactate (05/28/2025 8:59 PM CDT) Lactate, P 1.8 0.5 - 2.2 mmol/L 05/28/2025 9:54 PM CDT DTL Blood (Blood, Venous) 05/28/2025 8:59 PM CDT 05/28/2025 9:21 PM CDT us Crista Jay M.D., M.P.H. LAB BLOOD NON ADD- ON Final Result Performing Organization Address City/[facility]/ZIP Co de Phone Number [facility] [address] [place] [address], [facility] DTL [facility] [address] [place] [address] * CT Abdomen Pelvis with IV Contrast [...] abdomen or pelvis. No significant change since11/03/2024. us Renita Potts APRN C.N.P., D.N.P. G CT PROC EDURES Final Result * Phosphorus Inorganic (05/28/2025 4:31 PM CDT) Phosphorus (Inorganic), S 4.4 2.5 - 4.5 mg/dL 05/28/2025 7:46 PM CDT DTL Blood (Blood, Venous) 05/28/2025 4:31 PM CDT 05/28/2025 4:43 PM CDT Renita Potts APRN, C.N.P., D.N.P. LAB BLOOD A DD-ON Final Result Performing Organization Address City/[facility]/ZIP Co de Phone Number [facility] [address] [place] [address] * Magnesium (05/28/2025 4:31 PM CDT) [facility] Magnesium, S 2.2 1.7 - 2.3 mg/dL 05/28/2025 7:46 PM CDT DTL Blood (Blood, Venous) 05/28/2025 4:31 PM CDT 05/28/2025 4:43 PM CDT Renita Potts APRN, C.N.P., D.N.P. LAB BLOOD A DD-ON Final Result [facility] [address] [place] [address] * (ABNORMAL) Comprehensive Metabolic Panel (05/28/2025 4:31 [...] D.N.P. LAB BLOOD A DD-ON Final Result [facility] [address] [place] [address], [facility] DTL [facility] [address] [place] [address] * CBC no call back, reflex T/S [...] LAB BLOOD N ON ADD-ON Final Result [facility] [address] [place] [address], [place] DTL [facility] [address] [place] [address] DHPM [facility] [address] [place] [address] documented in this encounter Visit Diagnoses Diagnosis [...] intravenous, 2 times daily, First dose on Tig[facility] 05/28/25 at 2100, Drug Monitoring Program: Pharmacist to [...] Tigist 05/28/25 at 1908, For 1 dose Given 05/28/2025 [...] 1751 (Given - Provider: Juan Mahmood R.N.) 812 (Given - Provider: Lucy Stout [...] and drug clearance factors., Indications: Prophylaxis, medical 0813 (Given - Provid er: Lucy Stout R.N., BMT-VIJI, O.C.N.) PRN Medication Order 05/27/2025 05/28/2025 05/29/2025 [...] oral, Daily PRN, heartburn, indigestion, Starting on Sun05/28/25 at 1547, Doses listed are in mg [...] 1050 (Given - Provider: Lucy Stout R.N., KHANH-VIJI, O.C.N.) prochlorperazine tablet 10 mg (Compazine)(Linked Group [...] Total Score: 2 12/10/19 25 2:46 PM COMMUNITY ARTIST documented as of this encounter Care Teams Food Dehydrator Operator Relationship Specialty Start Date End Date Renzo Andres M.D. [address] [place] [phone] PCP - General Family Medicine 04/25/23 documented as of this encounter
--- OUTSIDE RECORDS SUMMARY | 2025-06-01 12:04 | XMS_ITS | Encounter Summary ---
Author Organization [facility] Address [address] [place] [address] Care Team Providers Care College Teacher Name Role Phone Renzo Andres M.D. 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 [address] [place] [phone] Phone: tel: fax: [facility] Referral ID Status Reason Start Date Expiration Date Visits Re quested Visits Authorized [id number] Closed 05/29/2025 08/29/2026 1 1 Encounter Details Date Type Department Care Team (Latest Contact Info) Description 06/01/2025 12:04 PM CDT - 06/01/2025 11:59 PM CDT Hospital Encounter Division of Gastroenterology in [place], [place] [address] [place] [phone] Lito Pollock P.A.-C. [address] [place] [phone] Jeaneth Núñez M.B.B.S., M.S. 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 I have a [facility] place to live 05/28/2025 Education Answer Date Recorded What is the highest level of school you have completed or the highest degree you have received? Some college, no degree 04/24/2019 Comments No Sex and Gender Information Value Date Recorded Sex Assigned at Female 12/26/2018 8:37 PM TAILOR APPRENTICE Legal Sex Female 2:43 PM TAILOR APPRENTICE Gender Identity Female 12/26/2018 8:37 PM TAILOR APPRENTICE Sexual Orientation Choose not to disclose 2020 [...] Indication: Chronic Pain/Nonacute Pain. 4 patch 05/25/2025 5 HYDROmorphone (Dilaudid) 1 mg/mL liquidIndications:C hronic Pain/Nonacute [...] Lab Department of Laboratory Medicine and Pathology, [facility] in [place], [place] [address] [place] [address] Jessica Rousseau M.B.B.S. 200 [place] [address] 06/30/2025 11:00 AM CDT Nurse Only Pedro Fatima [facility] in [place], [place] [address] [place] [address] Jessica Rousseau M.B.B.S. [address] [place] [phone] 06/30/2025 11:30 AM CDT [facility] in [place], [place] [address] [place] [phone] Jessica Rousseau M.B.B.S. [address] [place] [phone] 06/30/2025 3:00 PM CDT Appointment Department of Radiology, [facility], in [place], [place] [address] [place] [phone] Carlee Armas APRN, Satnam.N.P., D.N.P., M.S.N. [address] [place] [phone] 07/03/2025 8:00 AM CDT Telemedicine Department of Palliative Care in [place], [place] [address] [place] [phone] Yary Landa D.O. [address] [place] [phone] 07/15/2025 9:00 AM CDT Telemedicine [facility] [place] Transplantation and Clinical Regeneration in [place], [place] [address] [place] [phone] Jessica Rousseau M.B.B.S. [address] [place] [phone] 08/11/2025 9:00 AM CDT Nurse Only Section of Infectious Diseases in [place], [place] [address] [place] [phone] Jessica Rousseau M.B.B.S. [address] [place] [phone] 08/11/2025 10:20 AM CDT Comprehensive Visit Division of Gastroenterology in [place], [place] [address] [place] [phone] Jessica Rousseau M.B.B.S. [address] [place] [address] documented as of this encounter Procedures Procedure [...] submitted en toto in cassette C1.Grossed by AJD. 06/02/2025 1:48 PM CDT DTL Interpretation FINAL DIAGNOSIS A. Duodenum, random sites, endoscopic biopsy: Small bowel mucosa without diagnostic abnormality. Villi and plasma cells are present. No evidence of Whipple's disease, celiac sprue, or Giardia. No definite evidence for mxeyu-bict-su sease. B. Stomach, random sites, endoscopic biopsy: Antral and fundic mucosa with patchy mild reactive gastropathy. No H pylori. No dysplasia. No definite evidence for nhwux-ccee-as sease. C. Esophagus, random sites, endoscopic biopsy: Squamous esophageal mucosa without diagnostic abnormality. No intraepitheli al eosinophils. No definite evidence for bblru-wklf-cq sease. Digital imaging was used in the diagnostic assessment of this case. 06/02/2025 1:48 PM CDT DTL Biopsy (Duodenum) 06/01/2025 1:48 PM CDT Biopsy (Stomach) 06/01/2025 1:50 PM CDT Biopsy (Esophagus) 06/01/2025 1:51 PM CDT Jeaneth LiconaS., M.S. LAB SURG PATH ORDDianne AMAYA Final Result Performing Organization Address City/State/[facility] Co de Phone Number [facility] [address] [place] [address], [facility] DTL [address] [place] [address] * Upper GI Endoscopy (06/01/2025 1:11 PM CDT) 06/01/2025 1:11 PM CDT Impressions [facility] - 06/01/2025 1:56 PM CDT Post-op Diagnoses: - Normal esophagus. Biopsied. - Normal stomach. Biopsied. - A few gastric polyps with fundic gland appearance. - Normal examined duodenum. Biopsied. 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 [...] Pollock P.A.-C. GI PROCEDURE ORDERABLES Final Result [facility] NA documented in this encounter Visit Diagnoses Diagnosis Transplant Stem Cell (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) documented in this encounter Additional Health Concerns Infection Onset Date Last Indicated Resolved Time Protective Environment 03/02/2023 03/02/2023 Assessment Noted Time PHQ-9 Depression Total Score: 2 12/10/19 25 2:46 PM TAILOR APPRENTICE documented as of this encounter Care Teams College Teacher Relationship Specialty Start Date End Date Renzo Andres M.D. [address] [place] [address] Connel[place] SUNNY [phone] PCP - General Family Medicine 04/25/23 documented as of this encounter
--- OUTSIDE RECORDS SUMMARY | 2025-06-01 13:15 | XMS_ITS | Encounter Summary ---
Author Organization [facility] Address [address] [place] [address] Care Team Providers Care Hvac Sales Representative Name Role Phone Renzo Andres M.D. Primary Care Provider [phone] Encounter Details Date Type Department Care Team [...] In the past 12 months has e [employer], gas, oil, or water [employer] threatened to shut off services in your [...] [facility] live 05/28/2025 Education Answer Date Recorded What is the highest level of school you have completed or the highest degree you have received? Some college, no degree 04/24/2019 Comments No Sex and Gender Information Value Date Recorded Sex Assigned at Female 12/26/2018 8:37 PM ENGINEERING ASSISTANT Legal Sex Female 2:43 PM ENGINEERING ASSISTANT Gender Identity Female 12/26/2018 8:37 PM ENGINEERING ASSISTANT Sexual Orientation Choose not to disclose 2020 3:46 PM CDT documented as of this encounter Plan of Treatment Upcoming Encounters Date Type Department Care Team (Latest Contact Info) Description 06/30/2025 10:20 AM CDT Lab Department of Laboratory Medicine and Pathology, [facility] in [place], [place] [address] [place] [phone] Jessica Rousseau M.B.B.S. 200 [place] [phone] 06/30/2025 11:00 AM CDT Nurse Only Pedro Fatima [facility] Clinical Regeneration in [place], [place] [address] [place] [phone] eJssica Rousseau M.B.B.S. [address] [place] [phone] 06/30/2025 11:30 AM CDT [facility] in [place], [place] [address] [place] [address] Jessica Rousseau M.B.B.S. [address] [place] [phone] 06/30/2025 3:00 PM CDT Appointment Department of Radiology, [facility], in [place], [place] [address] [place] [phone] Carlee Armas APRN, C.N.P., D.N.P., M.S.N. [address] [place] [phone] 07/03/2025 8:00 AM CDT Telemedicine Department of Palliative Care in [place], [place] [address] [place] [phone] Yary Landa D.O. [address] [place] [phone] 07/15/2025 9:00 AM CDT Telemedicine [facility] Transplantation and Clinical Regeneration in [place], [place] [address] [place] [phone] Jessica Rousseau M.B.B.S. [address] [place] [phone] 08/11/2025 9:00 AM CDT Nurse Only Section of Infectious Diseases in [place], [place] [address] [place] [phone] Jessica Rousseau M.B.B.S. [address] [place] [phone] 08/11/2025 10:20 AM CDT Comprehensive Visit Division of Gastroenterology in [place], [place] [address] [place] [phone] Jessica oRusseau M.B.B.S. [address] [place] [phone] documented as of this encounter Procedures Procedure [...] Total Score: 2 12/10/19 25 2:46 PM ENGINEERING ASSISTANT documented as of this encounter Care Teams Hvac Sales Representative Relationship Specialty Start Date End Date Renzo Andres M.D. [address] [place] [phone] PCP - General Family Medicine 04/25/23 documented as of this encounter
--- OUTSIDE RECORDS SUMMARY | 2025-06-01 13:39 | XMS_ITS | Encounter Summary ---
Author Organization [facility] Address [address] [place] [address] Care Team Providers Care Projection Welding Machine Operator Name Role Phone Renzo Andres M.D. Primary Care Provider Encounter Details Date Type Department Care Team (Late st Contact Info) Description 06/01/2025 1:39 PM CDT Anesthesia Event Division of Gastroenterology in [place], [place] [address] [place] [phone] Isaisa Tolbert, KARON, PROVIDER ENGAGEMENT EXECUTIVE [address] [place] [phone] Bri Valenzuela M.D. [address] [place] [phone] Anesthesia Record Procedure Summary Procedure Name Responsible Anesthesiologist Anesthesia Start Time Anesthesia Stop Time EGD (ESOPHAGOGASTRODUOD ENOSCOPY) Isaias Tolbert APRN, PROVIDER ENGAGEMENT EXECUTIVE 06/01/25 1339 06/01/25 1358 Events Date Time [...] 06/15/25 (no longer present) 02/18/25 0944 by Marat Kramer R.N. 06/15/25 0000 by Chelsy Piper [...] oz pur e alcohol) social [facility] Utilities Answer Date Recorded In the past [...] your living situation today? I have a [facility] place to live 05/28/2025 Education Answer Date Recorded What is the highest level of school you have completed or the highest degree you have received? Some college, no degree 04/24/2019 Comments No Sex and Gender Information Value Date Recorded Sex Assigned at Female 12/26/2018 8:37 PM DIRECTOR TELEVISION Legal Sex Female 2:43 PM DIRECTOR TELEVISION Gender Identity Female 12/26/2018 8:37 PM DIRECTOR TELEVISION Sexual Orientation Choose not to disclose 2020 3:46 PM CDT documented as of this encounter OR Notes * Anesthesia Postprocedure Evaluation - Isaias Tolbert APRN, CRNA - 06/01/2025 1:58 PM CDT Patient: Radha Martinez Procedure Summary Date: 06/01/25 Room / Location: Division of Gastroenterology in [place], [place] Anesthesia Start: 1339 Anesthesia Stop: 1358 [...] (HCC) [C92.10] Location: Division of Gastroenterology in [place], [place] Pertinent components of the patient's history [...] with patient /legal guardian or through an seam checker. The use of blood products not discussed Approval to Proceed: approved for anesthesia documented in this encounter Plan of Treatment Upcoming Encounters Date Type Department Care Team (Latest Contact Info) Description 06/30/2025 10:20 AM CDT Lab Department of Laboratory Medicine and Pathology, [facility], in [place], [place] [address] [place] [address] Jessica Rousseau M.B.B.S. [address] [place] [phone] 06/30/2025 11:00 AM CDT Nurse Only Pedro Fatima [facility] for Transplantation and Clinical Regeneration in [place], [place] [address] [place] [address] Jessica Rousseau M.B.B.S. [address] [place] [phone] 06/30/2025 11:30 AM CDT Office Visit Pedro Fatima Bartlett for Transplantation and Clinical Regeneration in [place], [place] [address] [place] [address] Jessica Rousseau M.B.B.S. [address] [place] [phone] 06/30/2025 3:00 PM CDT Appointment Department of Radiology, [facility], in [place], [place] [address] [place] [address] Carlee Armas APRN, C.N.P., D.N.P., M.S.N. [address] [place] [phone] 07/03/2025 8:00 AM CDT Telemedicine Department of Palliative Care in [place], [place] [address] [place] [address] Yary Landa D.O. [address] [place] [phone] 07/15/2025 9:00 AM CDT Telemedicine [facility] Aravind [facility] for Transplantation and Clinical Regeneration in [place], [place] [address] [place] [address] Jessica Rousseau M.B.B.S. [address] [place] [phone] 08/11/2025 9:00 AM CDT Nurse Only Section of Infectious Diseases in [place], [place] [address] [place] [address] Jessica Rousseau M.B.B.S. [address] [place] [phone] 08/11/2025 10:20 AM CDT Comprehensive Visit Division of Gastroenterology in [place], [place] [address] [place] [address] Jessica Rousseau M.B.B.S. [address] [place] [phone] documented as of this encounter Visit Diagnoses [...] Total Score: 2 12/10/19 25 2:46 PM DIRECTOR TELEVISION documented as of this encounter Care Teams Projection Welding Machine Operator Relationship Specialty Start Date End Date Renzo Andres M.D. [address] [place] [address] [place] [phone] PCP - General Family Medicine 04/25/23 documented as of this encounter
--- OUTSIDE RECORDS SUMMARY | 2025-06-03 10:00 | XMS_ITS | Encounter Summary ---
Author Organization [facility] Address [address] [place] [id number] Care Team Providers Care [employer] Name Role Phone Renzo Andres M.D. Primary Care Provider Reason for Referral * MRI/CAT/PET Scan (Routine) - Closed Specialty Diagnoses / Procedures Referred By Estefania t Referred To Contact Radiology Diagnoses Transplant Stem Cell (HCC) Procedures CT Chest Angiogram and Pulmonary Arteries with IV Contrast CT Chest with IV Contrast Jessica Avila APRN, C.N.P., M.S.N. [address] [place] [phone] Phone: tel: fax: [facility] Region Referral ID Status Reason Start Date Expiration Date Visits Re quested Visits Authorized [id number] Closed 06/03/2025 09/03/2026 1 1 Reason for Visit * Transplant (Routine) - Closed Specialty Diagnoses / Procedures Referred By Contac t Referred To Contact Transplant Tessa Jesus APRN, C.N.P., D.N.P. [address] [place] [phone] Phone: tel: fax: [facility] Referral ID Status Reason Start Date Expiration Date Visits Re quested Visits Authorized [id number] Closed 05/20/2025 11/19/2026 1 1 Encounter Details Date Type Department Care Team (Latest Contact Info) Description 06/03/2025 10:00 AM CDT Office Visit Pedro sanchez [facility] Transplantation and Clinical Regeneration in [place], [place] [address] [place] [address] Tessa Jesus APRN, C.N.P., D.N.P. [address] [place] [address] Jessica Avila APRN, C.N.P., M.S.N. [address] [place] [address] Transplant Stem Cell (HCC) (Primary Dx) Social History Tobacco Use Types Packs/Day Years Used Date Smoking Tobacco: Never Smokeless Tobacco: Never Alcohol Use Standard Drinks/Week Comments Yes 0 (1 standard drink = 0.6 oz pur e alcohol) social [facility] Utilities Answer Date Recorded In the past 12 months has e [employer], gas, oil, or water [employer] threatened to shut off services in your [...] your living situation today? I have a [facility] to live 05/28/2025 Education Answer Date Recorded What is the highest level of school you have completed or the highest degree you have received? Some college, no degree 04/24/2019 Comments No Sex and Gender Information Value Date Recorded Sex Assigned at Female 12/26/2018 8:37 PM APPEALS REPRESENTATIVE Legal Sex Female 2:43 PM APPEALS REPRESENTATIVE Gender Identity Female 12/26/2018 8:37 PM APPEALS REPRESENTATIVE Sexual Orientation Choose not to disclose 2020 3:46 PM CDT documented as of this encounter Last Filed Vital Signs Vital Sign Reading Time Taken Comments Blood Pressure 140/88 06/03/2025 9:51 AM CDT Pulse 120 06/03/2025 9:51 AM CDT Temperature 36.1 C (97 F) 06/03/2025 9:51 AM CDT Respiratory Rate - - Oxygen Saturation - - Inhaled Oxygen Concentration - - Weight 101 kg (223 lb 5.2 oz) 06/03/2025 9:51 AM CDT Height - - Body Mass Index 33.96 05/28/2025 3:50 PM CDT documented in this encounter Progress Notes * Jessica Avila, KARON, C.N.P., M.S.N. - 06/03/2025 10:00 AM CDT SUBJECTIVE TRANSPLANT PHYSICIAN Dr. Jessica Rousseau, pager [phone]. HISTORY OF PRESENT ILLNESS Radha Martinez is a 35 y.o. female with a past medical history significant for CML who received a MUD HCT on 12/10/24. She is at [facility] today for the follow up. Day + 175 HISTORY OF PRESENT ILLNESS Please refer to multiple prior notes in EMR for complete hematologic history: Ms. Martinez is a 35 y.o. 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 At the time of diagnosis, there was grade 3 reticulin fibrosis noted. The cytogenetics identified a Norman chromosome in 20 metaphases. The BCR-ABL1 P [...] t(9;22) metaphases. NGS is positive for ASXL1 p.[id number]*12 (20%) and p.Lrg794* (3%). 06/17/2024: feeling quite symptomatic since the [...] Access [place] CVC placed on 12/03/24 by [facility]. Social Work Seen and cleared [...] recovery. Enterobacter cloacae UTI, treated with Ciprofloxacin 05/28/25 Admitted to the hospital with nausea. Started on Prednisone 60 mg po daily with improvementin nausea. Pt was discharged the following day EGD done on 06/01. Biopsies negative for GVHD EVENTS OVER THE LAST 24 HOURS She reports not feeling well for approx month now. Her energy is down and she has been sleeping a lot. She has developed epigastric pain on 05/30. Pain is described as stabbing comes and goes without associated other symptoms. Onset of pain after pt started on Prednisone (05/28). She had EGD done on 06/01 and the pain is much worse after the procedure. She had 7 episodes of pain yesterday. She continues on Prednisone 60 mg po, takes Protonix 40 mg po BID She was evaluated at the local ED for chest pain and per patient reports the cardiac testing was negative. Of note she has recently started on Buprenorphine patch, tapering Gabapentin. Additionally patient reports intermittent nausea and takes Compazine daily in AM. She denies recentemesis. No abdominal pain, cramping or diarrhea. No headaches, dizziness, or shortness of breath. She remains afebrile . She reports her neuropathy significantly improved on Buprenorphine patch. She is tapering her Neurontin now. REVIEW OF SYSTEMS a 10 point ROS was performed and negative with the exception of notation above. Current Outpatient Medications Medication Instructions acyclovir (ZOVIRAX) 400 mg, oral, 2 times daily ARIPiprazole (ABILIFY) 10 mg, oral, Daily, Dose change 12/02/2024 buprenorphine (Butrans) 5 mcg/hour 1 patch, transdermal, Weekly cholecalciferol (VITAMIN D3) 50 mcg, Daily DULoxetine (CYMBALTA) 120 mg, oral, Daily HYDROmorphone (DILAUDID) 0.5 mg, oral, Daily PRN loperamide (IMODIUM A-D) 2 mg, oral, Every 2 hour PRN, Take with occurrence of diarrhea. May take up to 16 mg, or 8 doses daily. melatonin 5 mg, Daily at bedtime naloxone (NARCAN) 4 mg, nasal, Once, Use 1 spray in 1 nostril. Repeat with second device in other nostril after 2-3 minutes if no or minimal response. ondansetron ODT (ZOFRAN-ODT) 4-8 mg, oral, Every 8 hours PRN pantoprazole (PROTONIX) 40 mg, oral, 2 times daily before morning and evening meals penicillin V potassium (VEETIDS) 500 mg, oral, 2 times daily posaconazole (NOXAFIL) 300 mg, oral, Daily predniSONE (Deltasone) 10 mg tablet Take 6 tablets (60 mg total) by mouth daily for 3 days, THEN 5 tablets (50 mg total) daily for 5 days. prochlorperazine (COMPAZINE) 10 mg, oral, Every 6 hours PRN sulfamethoxazole-trimethoprim (Bactrim) 400-80 mg per tablet 1 tablet, oral, Daily OBJECTIVE I/O No intake or output data [...] I have reviewed the recent relevant Diagnostics Recent Results (from the past 24 hours) CBC with Differential, Blood Collection Time: 06/03/25 9:41 AM Result Value Hemoglobin 12.7 Hematocrit 39.5 Erythrocytes 4.75 MCV 83.2 RBC Distrib Width 13.9 Platelet Count 213 Leukocytes 4.1 Neutrophils 3.08 Lymphocytes 0.69 (L) Monocytes 0.27 Eosinophils 0.08 Basophils <0.03 Comprehensive Metabolic Panel Collection Time: 06/03/25 9:41 AM Result Value Potassium, S 4.1 Sodium, S 138 Chloride, S 100 Bicarbonate, S 26 Anion Gap 12 BUN (Blood Urea Nitrogen), S 12 Creatinine 1.01 Estimated GFR (eGFR) 74 Calcium, Total, S 9.1 Glucose, S 134 Protein, Total, S 6.8 Albumin, S 4.3 Aspartate Aminotransferase (AST), S 21 Alkaline Phosphatase, S 85 Alanine Aminotransferase (ALT), S 27 Bilirubin, Total, S 0.4 LD (Lactate Dehydrogenase) Collection Time: 06/03/25 9:41 AM Result Value Hospital Deanna LD 152 Magnesium Collection Time: 06/03/25 9:41 AM Result Value Magnesium, S 2.3 ASSESSMENT / PLAN Plan for CT chest to r/o PE tomorrow Prednisone 50 mg po daily x 5 days, then decrease to 40 mg po daily x 5 days and continue taper 10 mg q 5 days 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 QS78-% donor DNA and approximately 0% recipient DNA. [...] vomiting since 05/20, Query for GI GVHD , improved # Chills and night sweats - C-diff negative from 05/17. PRN Imodium as needed. - Infectious work-up with peripheral blood cultures from 05/17 NGTD. Lactate 1.6, nonelevated. - 05/28 CT abdomin/pelvis: no abnormal findings. - Plan per Dr. Rousseau on 05/28: start prednisone 60 mg daily. Plan for taper of 10 mg daily every 5 days. - 06/01 EGD with biopsy negative for GVHD - Continue on daily Compazine and Pantoprazole 40 mg po BID. # Esophageal /Chest pain Pain is sharp 5-7 x day , intermittent and resolves on its own Cardiac work up at the local facility was negative for acute process Etiology unclear possibly related to steroids ( onset after starting Prednisone) and exacerbated byEGD. Pt will continue on PPI As she also c/o generalized malaise x 1 month w/ nausea, will request CT chest to r/o PE # GVHD Prophylaxis - Received PTCy; MMF [...] mg and qHS hydromorphone PRN. - Patient is tapering gabapentin, currently takes BID ( not sure of the dose) - Previous discussion that hydromorphone should not [...] right eye. Wears glasses. - Followed by [facility] in [place], [place]. - Patient will notify team if any vision changes. # Blood Products # TACO - Requires infusion of platelets at a slower rate # Disposition Pt will f/up at 9 next month. Labs will be done at the local facility. documented in this encounter Plan of Treatment Upcoming Encounters Date Type Department Care Team (Latest Contact Info) Description 06/30/2025 10:20 AM CDT Lab Department of Laboratory Medicine and Pathology, [facility], in [place], [place] [address] [place] [phone] Jessica Rousseau M.B.B.S. [address] [place] [phone] 06/30/2025 11:00 AM CDT Nurse Only Pedro Fatima Dumas for Transplantation and Clinical Regeneration in [place], [place] [address] [place] [phone] Jessica Rousseau M.B.B.S. [address] [place] [phone] 06/30/2025 11:30 AM CDT Office Visit [facility] for Transplantation and Clinical Regeneration in [place], [place] [address] [place] [address] Jessica Rousseau M.B.B.S. [address] [place] [phone] 06/30/2025 3:00 PM CDT Appointment Department of Radiology, [facility], in [place], [place] [address] [place] [address] Carlee Armas APRN, C.N.P., D.N.P., M.S.N. [address] [place] [phone] 07/03/2025 8:00 AM CDT Telemedicine Department of Palliative Care in [place], [place] [address] [place] [phone] Yary Landa D.O. [address] [place] [phone] 07/15/2025 9:00 AM CDT Telemedicine [facility] Transplantation and Clinical Regeneration in [place], [place] [address] [place] [phone] Jessica Rousseau M.B.B.S. [address] [place] [phone] 08/11/2025 9:00 AM CDT Nurse Only Section of Infectious Diseases in [place], [place] [address] [place] [phone] Jessica Rousseau M.B.B.S. [address] [place] [address] 08/11/2025 10:20 AM CDT Comprehensive Visit Division of Gastroenterology in [place], [place] [address] [place] [address] Jessica Rousseau M.B.B.S. [address] [place] [address] documented as of this encounter Results * CT Chest Angiogram and Pulmonary Arteries with IV Contrast (06/05/2025 9:01 AM CDT) Anatomical Region Laterality Modality Chest, Cardiovascular RST LO S, Thoracic ARZ LOS, Thoracic FLA LOS N/A Computed Tomography 06/05/2025 8:53 AM CDT Impressions 06/05/2025 8:59 AM CDT 1. No convincing evidence of acute PE. 2. Mild cardiac enlargement. 3. Groundglass noted across the dependent portions of the lower lobes reflect an element of edema/atypical infection with or without associated atelectasis. 4. No significant pleural fluid accumulation. 5. Probable hepatic steatosis. Narrative 06/05/2025 8:59 AM CDT EXAM: CT CHEST ANGIOGRAM AND PULMONARY ARTERIES WITH IV CONTRAST Including 3D image postprocessing with or without AI assistance. COMPARISON: Comparison with prior CT chest 11/03/2024. FINDINGS: Pulmonary Arteries: Satisfactory quality study. Pulmonary embolism: No convincing evidence of acute PE. Exam detail the lung bases is slightly degraded by motion artifact. Main PA size is stable. Other cardiovascular: Cardiac size is mildly enlarged. There is no pericardial effusion. 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 Lungs and Airways: Central tracheobronchial tree is clear. There is mild bronchial wall thickening. There are faint groundglass opacities at the lung bases bilaterally. No confluent alveolar consolidation. No suspicious appearing pulmonary nodule or mass lesion. Pleural Space: No pleural fluid or thickening. Mediastinum and Pippa: No thoracic adenopathy. Osseous Structures and Chest Wall: No aggressive bone lesions. Medical Devices: None. Upper Abdomen: No acute upper abdominal abnormalities. Probable hepatic steatosis. Procedure Note Geo Boothe M.D. - 06/05/2025 EXAM: CT CHEST ANGIOGRAM AND PULMONARY ARTERIES WITH IV CONTRAST Including 3D image postprocessing with or without AI assistance. COMPARISON: Comparison with prior CT chest 11/03/2024. FINDINGS: Pulmonary Arteries: Satisfactory quality study. Pulmonary embolism: No convincing evidence of acute PE. Exam detail thelung bases is slightly degraded by motion artifact. Main PA size isstable. Other cardiovascular: Cardiac size is mildly enlarged. There is nopericardial effusion. Stable aortic course and caliber, to include anaberrant origin for the right subclavian artery. Lungs and Airways: Central tracheobronchial tree is clear. There is mildbronchial wall thickening. There are faint groundglass opacities at thelung bases bilaterally. No confluent alveolar consolidation. No suspiciousappearing pulmonary nodule or mass lesion. Pleural Space: No pleural fluid or thickening. Mediastinum and Pippa: No thoracic adenopathy. Osseous Structures and Chest Wall: No aggressive bone lesions. Medical Devices: None. Upper Abdomen: No acute upper abdominal abnormalities. Probable hepaticsteatosis. IMPRESSION: 1. No convincing evidence of acute PE. 2. Mild cardiac enlargement. 3. Groundglass noted across the dependent portions of the lower lobesreflect an element of edema/atypical infection with or without associatedatelectasis. 4. No significant pleural fluid accumulation. 5. Probable hepatic steatosis. Jessica Avila APRN, C.N.P., M.S.N. [facility] CT PROC EDURES Final Result documented in this encounter Visit Diagnoses Diagnosis Transplant Stem Cell (HCC)- Primary Transplant Stem Cell (HCC) documented in this encounter Additional Health Concerns Infection Onset Date Last Indicated Resolved Time Protective Environment 03/02/2023 03/02/2023 Assessment Noted Time PHQ-9 Depression Total Score: 2 12/10/19 25 2:46 PM APPEALS REPRESENTATIVE documented as of this encounter Care Teams [employer] Relationship Specialty Start Date End Date Renzo Andres M.D. [address] [place] [address] [place] [phone] PCP - General Family Medicine 04/25/23 documented as of this encounter
--- OUTSIDE RECORDS SUMMARY | 2025-06-05 08:36 | XMS_ITS | Encounter Summary ---
Author Organization [facility] Address [address] [place] [address] Care Team Providers Care Campground Cleaning Attendant Name Role Phone Renzo Andres M.D. Primary Care Provider [phone] Reason for Referral * MRI/CAT/PET Scan (Routine) - Closed Specialty Diagnoses / Procedures Referred By Viviac t Referred To Contact Radiology Diagnoses Transplant Stem Cell (HCC) Procedures CT Chest Angiogram and Pulmonary Arteries with IV Contrast CT Chest with IV Contrast Jessica Avila APRN C.N.P., M.S.N. [address] [place] [address] Phone: tel: fax: [facility] Region Referral ID Status Reason Start Date Expiration Date Visits Re quested Visits Authorized [id number] Closed 06/03/2025 09/03/2026 1 1 Reason for Visit * MRI/CAT/PET Scan (Routine) - Closed Specialty Diagnoses / Procedures Referred By Contac t Referred To Contact Radiology Diagnoses Transplant Stem Cell (HCC) Procedures CT Chest Angiogram and Pulmonary Arteries with IV Contrast CT Chest with IV Contrast Jessica Avila APRN, C.N.P., M.S.N. 200 [place] [address] Phone: tel: fax: [facility] Region Referral ID Status Reason Start Date Expiration Date Visits Re quested Visits Authorized [id number] Closed 06/03/2025 09/03/2026 1 1 Encounter Details Date Type Department Care Team (Latest Contact Info) Description 06/05/2025 8:36 AM CDT - 06/05/2025 11:59 PM CDT Hospital Encounter Department of Radiology in [address] [phone] Jessica Avila APRN, C.N.P., M.S.N. 200 [place] [address] Transplant Stem Cell (HCC) Discharge Disposition: Home or Self Care Social History Tobacco Use Types Packs/Day Years Used Date Smoking Tobacco: Never Smokeless Tobacco: Never Alcohol Use Standard Drinks/Week Comments Yes 0 (1 standard drink = 0.6 oz pur e alcohol) social [facility] Utilities Answer Date Recorded In the past 12 months has e [employer] gas, oil, or water [employer] threatened to shut off services in your [...] your living situation today? I have a [facility] place to live 05/28/2025 Education Answer Date Recorded What is the highest level of school you have completed or the highest degree you have received? Some college, no degree 04/24/2019 Comments No Sex and Gender Information Value Date Recorded Sex Assigned at Female 12/26/2018 8:37 PM DISABILITY ATTORNEY Legal Sex Female 2:43 PM DISABILITY ATTORNEY Gender Identity Female 12/26/2018 8:37 PM DISABILITY ATTORNEY Sexual Orientation Choose not to disclose 2020 [...] Indication: Chronic Pain/Nonacute Pain. 10 mL 05/13/2025 pantoprazole (Protonix) 40 mg EC tablet Take [...] of Laboratory Medicine and Pathology, [facility] in [place], [place] [address] [place] [address] Jessica Rousseau M.B.B.S. [address] [place] [phone] 06/30/2025 11:00 AM CDT Nurse Only [facility] in [place], [place] [address] [place] [address] Jessica Rousseau M.B.B.S. [address] [place] [phone] 06/30/2025 11:30 AM CDT Office [facility] in [place], [place] [address] [place] [address] Jessica Rousseau M.B.B.S. [address] [place] [phone] 06/30/2025 3:00 PM CDT Appointment Department of Radiology, [facility], in [place], [place] [address] [place] [address] Carlee Armas APRN, C.N.P., Heaven.N.P., M.S.N. [address] [place] [phone] 07/03/2025 8:00 AM CDT Telemedicine Department of Palliative Care in [place], [place] [address] [place] [phone] Yary Landa D.O. [address] [place] [phone] 07/15/2025 9:00 AM CDT Telemedicine [facility] in [place], [place] [address] [place], [place] [phone] Jessica Rousseau M.B.B.S. [address] [place] [phone] 08/11/2025 9:00 AM CDT Nurse Only Section of Infectious Diseases in [place], [place] [address] [place] [phone] Jessica Rousseau M.B.B.S. [address] [place] [phone] 08/11/2025 10:20 AM CDT Comprehensive Visit Division of Gastroenterology in [place], [place] [address] [place] [phone] Jessica Rousseau M.B.B.S. [address] [place] [phone] documented as of this encounter Procedures Procedure Name Priority Date/Time Associated Diagnosis Comments CT CHEST ANGIOGRAM AND PULMONARY ARTERIES WITH IV CONTRAST RAD - Routine (most inpatients and all outpatients) 06/05/2025 9:01 AM CDT Transplant Stem Cell (HCC) documented in this encounter Results * CT Chest Angiogram [...] hepatic steatosis. Jessica Avila APRN, C.N.P., M.S.N. IMG CT PROC EDURES Final Result documented in this encounter Visit Diagnoses Diagnosis Transplant Stem Cell (HCC) documented in this encounter Administered Medications Inactive Administered Medications - up to 3 most recent administrations Medication Order MAR Action Action Date Dose Rate Site iopromide 370 mg iodine/mL injection 100 mL (Ultravist) 100 mL, intravenous, Once in imaging, contrast, Starting on Sun06/05/25 at 0838, For 1 dose Given 06/05/2025 8:58 AM CDT 100 mL NaCl 0.9 % bolus 80 mL 80 mL, intravenous, at 80 mL/hr, Administer over 1 Hours, Once, On Sun06/05/25 at 0900, For 1 dose New Bag 06/05/2025 8:58 AM CDT 80 mL 80 mL/hr sodium chloride 0.9 % injection 10 mL 10 mL, intravenous, Once, On Sun06/05/25 at 0900, For 1 dose Given 06/05/2025 8:58 AM CDT 10 mL documented in this encounter Additional Health Concerns Infection Onset Date Last Indicated Resolved Time Protective Environment 03/02/2023 03/02/2023 Assessment Noted Time PHQ-9 Depression Total Score: 2 12/10/19 25 2:46 PM DISABILITY ATTORNEY documented as of this encounter Care Teams Campground Cleaning Attendant Relationship Specialty Start Date End Date Renzo Andres M.D. [address] [place] [address] [place] [phone] PCP - General Family Medicine 04/25/23 documented as of this encounter
--- OUTSIDE RECORDS SUMMARY | 2025-06-07 11:45 | XMS_ITS | Encounter Summary ---
Author Organization [facility] Address [address] [place] [address] Care Team Providers Care Rubber Off Name Role Phone Renzo Andres M.D. Primary Care Provider Reason for Referral * Outpatient (Routine) - Closed Specialty Diagnoses / Procedures Referred By Estefania t Referred To Contact Diagnoses Transplant Stem Cell (HCC) Pain Pleuritic Chest Procedures ECG 12 Lead OK EKG 12 LEAD W I&R Analia Carter APRN, C.N.P. [address] [place] [address] Phone: tel: fax: [facility] Referral ID Status Reason Start Date Expiration Date Visits Re quested Visits Authorized [id number] Closed 06/06/2025 09/06/2026 1 1 * Specialty Diagnoses / Procedures Referred By Contac t Referred To Contact RST [facility] [address] [place] [address] Phone: tel: [facility] Referral ID Status Reason Start Date Expiration Date Visits Re quested Visits Authorized Scheduling Instructions Please schedule on 06/07 at noon BW,Exam Reason for Visit * Outpatient (Routine) - Closed Specialty Diagnoses / Procedures Referred By Estefania acosta Referred To Contact Diagnoses Transplant Stem Cell (HCC) Pain Pleuritic Chest Procedures ECG 12 Lead OK EKG 12 LEAD W I&R Analia Carter APRN, C.N.P. [address] [place] [address] Phone: tel: fax: [facility] Referral ID Status Reason Start Date Expiration Date Visits Re quested Visits Authorized [id number] Closed 06/06/2025 09/06/2026 1 1 Encounter Details Date Type Department Care Team (Latest Contact Info) Description 06/07/2025 11:45 AM CDT - 06/07/2025 11:59 PM CDT Hospital Encounter [facility], Ninth Floor [address] [place] [phone] Analia Carter APRN, C.N.P. 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 I have a [facility] place to live 05/28/2025 Education Answer Date Recorded What is the highest level of school you have completed or the highest degree you have received? Some college, no degree 04/24/2019 Comments No Sex and Gender Information Value Date Recorded Sex Assigned at Female 12/26/2018 8:37 PM DENTAL EQUIPMENT MECHANIC Legal Sex Female 2:43 PM DENTAL EQUIPMENT MECHANIC Gender Identity Female 12/26/2018 8:37 PM DENTAL EQUIPMENT MECHANIC Sexual Orientation Choose not to disclose [...] total) by mouth daily. 120 capsule 04/29/2025 loperamide (Imodium A-D) 2 mg capsule [...] Please hold while on budesonide. 06/07/2025 5 documented as of this encounter Progress Notes * Analia Carter, BREAD DUMPER, C.N.P. - 06/07/2025 12:00 PM CDT SUBJECTIVE TRANSPLANT PHYSICIAN Dr. Jessica Rousseau, pager [phone]. HISTORY OF PRESENT ILLNESS Radha Martinez is a 35 y.o. female with a past medical history significant for CML who received a MUD HCT on 12/10/24. She is at [facility] today for the follow up. Day + 175 HISTORY OF PRESENT ILLNESS Please refer to multiple prior notes in EMR for complete hematologic history: Ms. Martinez is a 35 y.o. 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 At the time of diagnosis, there was grade 3 reticulin fibrosis noted. The cytogenetics identified a [place] chromosome in 20 metaphases. The BCR-ABL1 P [...] t(9;22) metaphases. 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 06/17/2024: feeling quite symptomatic since the [...] prophylaxis: Ursodiol 600 mg two times daily. [facility] ID Number: [id number] [...] in discomfort across her sternum Differential - [place] ruled out with cardiac work up in [...] donor DNA and approximately 40% recipient DNA. [id number]% donor DNA and approximately 0% recipient DNA. [...] had just started 40 mg daily today [id number]) - monitor if chest pressure improves (this [...] right eye. Wears glasses. - Followed by [facility] in [place], [place]. - Patient will notify team if any vision changes. # Blood Products # TACO - Requires infusion of platelets at a slower rate # Disposition - Echocardiogram First available -06/10/25 IFD appointment for immunizations -06/15/25 Bone marrow biopsy - 06/25/25 appointments on [place] [address] documented in this encounter Plan of Treatment Upcoming Encounters Date Type Department Care Team (Latest Contact Info) Description 06/30/2025 10:20 AM CDT Lab Department of Laboratory Medicine and Pathology, [facility], in [place], [place] [address] [place] [address] Jessica Rousseau M.B.B.S. [address] [place] [address] 06/30/2025 11:00 AM CDT Nurse Only [facility] [place] [facility] in [place], [place] [address] [place] [phone] Jessica Rousseau M.B.B.S. [address] [place] [phone] 06/30/2025 11:30 AM CDT [facility] [place], [place] [address] [place] [phone] Jessica Rousseau M.B.B.S. [address] [place] [phone] 06/30/2025 3:00 PM CDT Appointment Department of Radiology, [facility], in [place], [place] [address] [place] [phone] Carlee Armas APRN, C.N.P., D.N.P., M.S.N. [address] [place] [phone] 07/03/2025 8:00 AM CDT Telemedicine Department of Palliative Care in [place], [place] [address] [place] [phone] Yary Landa D.O. [address] [place] [phone] 07/15/2025 9:00 AM CDT Telemedicine [facility] in [place], [place] [address] [place] [phone] Jessica Rousseau M.B.B.S. [address] [place] [phone] 08/11/2025 9:00 AM CDT Nurse Only Section of Infectious Diseases in [place], [place] [address] [place] [phone] Jessica Rousseau M.B.B.S. [address] [place] [phone] 08/11/2025 10:20 AM CDT Comprehensive Visit Division of Gastroenterology in [place], [place] [address] [place] [address] Jessica Rousseau M.B.B.S. [address] [place] [address] Scheduled Referrals Name Type Priority Associated Diagnoses [...] CDT) Ventricular Rate ECG/Min 86 BPM MUSE OK Interval 172 ms MUSE QRSD Interval 78 ms MUSE QT Interval 350 ms MUSE QTC Interval 418 ms MUSE P [place] 55 degrees MUSE R [place] 11 degrees MUSE T Wave [place] 38 degrees MUSE 06/07/2025 12:1 5 PM [...] [place] Analia Gamez APRN, C.N.P. ECG ORDER JANES Final Result MUSE NA * (ABNORMAL) C-Reactive Protein, High Sensitivity (06/07/2025 12:12 PM CDT) Pathologist [facility] C-Reactive Protein, High Sens, S 3.9(H) <2.0 mg/L 06/07/2025 2:36 PM CDT DTL Comment: Elevated C-reactive protein (>=2.0 mg/L) is a risk factor for cardiovascular disease. Clinician-patient discussion of therapeutic strategy is warranted. Blood (Blood, Venous) 06/07/2025 12:12 PM CDT 06/07/2025 12:19 PM CDT Analia Gamez APRN, C.N.P. LAB BLOOD ADD-ON Final Result [facility] [place] [address] [place], [place] [address] [address] [place] [address] * NT-Pro B-Type Natriuretic Peptide (BNP) (06/07/2025 12:12 PM CDT) Pathologist [facility] NT-Pro BNP <36 <160 pg/mL 06/07/2025 2:36 PM CDT DT Comment: NT-proBNP values less than 300 pg/mL [...] APRN, C.N.P. LAB BLOOD ADD-ON Final Result [facility] [place] [address] [place], [place] [address] [address] [place] [address] * Troponin T, 5th Generation (06/07/2025 12:12 PM CDT) Pathologist [facility] Troponin T, 5th gen <6 <=10 ng/L 06/07/2025 1:04 PM CDT DT Blood (Blood, Venous) 06/07/2025 12:12 PM CDT 06/07/2025 12:19 PM CDT Analia Gamez APRN, C.N.P. LAB BLOOD ADD-ON Final Result [facility] [place] [address] [place] [address], [facility] [address] [place] [address] * Magnesium (06/07/2025 12:12 PM CDT) Magnesium, S 2.2 1.7 - 2.3 mg/dL 06/07/2025 2:36 PM CDT DTL Blood (Blood, Venous) 06/07/2025 12:12 PM CDT 06/07/2025 12:19 PM CDT Analia Gamez APRN, C.N.P. LAB BLOOD ADD-ON Final Result [facility] [place] [address] [place] [address], [facility] [address] [place] [address] * (ABNORMAL) Comprehensive Metabolic Panel (06/07/2025 12:12 [...] APRN, C.N.P. LAB BLOOD ADD-ON Final Result [place] [address] [place] [address], [facility] [place] [address] * (ABNORMAL) CBC no call back, reflex [...] CDT Analia Gamez APRN, C.N.P. LAB BLOOD NON ADD-ON Final Result [facility] [place] [address] [place] [address], [facility] DTL [facility] [address] [place] [address] DHPM [facility] [address] [place] [address] documented in this encounter Visit Diagnoses Diagnosis [...] Total Score: 2 12/10/19 25 2:46 PM DENTAL EQUIPMENT MECHANIC documented as of this encounter Care Teams Rubber Off Relationship Specialty Start Date End Date Renzo Andres M.D. [address] [place] [phone] PCP - General Family Medicine 04/25/23 documented as of this encounter
--- OUTSIDE RECORDS SUMMARY | 2025-06-08 13:15 | XMS_ITS | Encounter Summary ---
Author Organization [facility] Address [address] [place] [address] Care Team Providers Care Manager Employee Relations Name Role Phone Renzo Andres M.D. Primary Care Provider Reason for Visit * Outpatient (Routine) - Closed Specialty Diagnoses / Procedures Referred By Estefania acosta Referred To Contact Infectious Diseases Diagnoses 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) Transplant Stem Cell (HCC) Procedures Infectious Diseases - BMT econsult Arlen James APRN, C.N.P., D.N.P. [address] [place] [phone] Phone: tel: fax: [facility] Referral ID Status Reason Start Date Expiration Date Visits Re quested Visits Authorized [id number] Closed 06/05/2025 09/05/2026 1 1 Encounter Details Date Type Department Care Team (Late st Contact Info) Description 06/08/2025 1:15 PM CDT Internal E-Consult Section of Infectious Diseases in [place], [place] [address] [place] [phone] Arlen James APRN, C.N.P., D.N.P. [address] [place] [phone] Vanessa Segura P.A.-C. [address] [place] [phone] 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); Transplant Stem Cell (HCC) Social History Tobacco Use Types Packs/Day Years Used Date Smoking Tobacco: Never Smokeless Tobacco: Never Alcohol Use Standard Drinks/Week Comments Yes 0 (1 standard drink = 0.6 oz pur e alcohol) social [facility] Utilities Answer Date Recorded In the [...] Sex Assigned at Female 12/26/2018 8:37 PM SEEING EYE DOG TRAINER Legal Sex Female 2:43 PM SEEING EYE DOG TRAINER Gender Identity Female 12/26/2018 8:37 PM SEEING EYE DOG TRAINER Sexual Orientation Choose not to disclose 2020 [...] transplant 12/10/2024. Tacrolimus for GVHD prophylaxis was [id number]/30/2025. She was recently started on budesonide and [...] Department of Laboratory Medicine and Pathology, [facility], in [place], [place] [address] [place] [address] Jessica Rousseau M.B.B.S. [address] [place] [phone] 06/30/2025 11:00 AM CDT Nurse Only [facility] in [place], [place] [address] [place] [phone] Jessica Rousseau M.B.B.S. [address] [place] [phone] 06/30/2025 11:30 AM CDT Office Visit [facility] for Transplantation and Clinical Regeneration in [place], [place] [address] [place] [address] Jessica Rousseau M.B.B.S. [address] [place] [phone] 06/30/2025 3:00 PM CDT Appointment Department of Radiology, [facility], in [place], [place] [address] [place] [phone] Carlee Armas APRN, Satnam.N.P., D.N.P., M.S.N. [address] [place] [phone] 07/03/2025 8:00 AM CDT Telemedicine Department of Palliative Care in [place], [place] [address] [place] [phone] Yary Landa D.O. [address] [place] [phone] 07/15/2025 9:00 AM CDT Telemedicine [facility] Transplantation and Clinical Regeneration in [place], [place] [address] [place] [address] Jessica Rousseau M.B.B.S. [address] [place] [phone] 08/11/2025 9:00 AM CDT Nurse Only Section of Infectious Diseases in [place], [place] [address] [place] [phone] Jessica Rousseau M.B.B.S. [address] [place] [phone] 08/11/2025 10:20 AM CDT Comprehensive Visit Division of Gastroenterology in [place], [place] [address] [place] [address] Jessica Rousseau M.B.BKatalinaS. [address] [place] [address] documented as of this encounter Visit Diagnoses Diagnosis 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) Transplant Stem Cell (HCC) documented in this encounter Additional Health Concerns Infection Onset Date Last Indicated Resolved Time Protective Environment 03/02/2023 03/02/2023 Assessment Noted Time PHQ-9 Depression Total Score: 2 12/10/19 25 2:46 PM SEEING EYE DOG TRAINER documented as of this encounter Care Teams Manager Employee Relations Relationship Specialty Start Date End Date Renzo Andres M.D. [address] [place] [phone] PCP - General Family Medicine 04/25/23 documented as of this encounter
--- OUTSIDE RECORDS SUMMARY | 2025-06-10 12:45 | XMS_ITS | Encounter Summary ---
Author Organization [facility] Address [address] [place] [address] Care Team Providers Care Sludge Control Attendant Name Role Phone Renzo Andres M.D. Primary Care Provider [phone] Encounter Details Date Type Department Care Team (Late st Contact Info) Description 06/10/2025 12:45 PM CDT [facility] in [place], [place] [address] [place] [address] Ta Medrano Social History Tobacco Use Types Packs/Day Years Used Date Smoking Tobacco: Never Smokeless Tobacco: Never Alcohol Use Standard Drinks/Week Comments Yes 0 (1 standard drink = 0.6 oz pur e alcohol) social C Utilities Answer Date Recorded In the past 12 months has e [employer], gas, oil, or water [employer] threatened to shut off services in your [...] your living situation today? [facility] to live 05/28/2025 Education Answer Date Recorded What is the highest level of school you have completed or the highest degree you have received? Some college, no degree 04/24/2019 Comments No Sex and Gender Information Value Date Recorded Sex Assigned at Female 12/26/2018 8:37 PM WIND POWER PROJECT MANAGER Legal Sex Female 2:43 PM WIND POWER PROJECT MANAGER Gender Identity Female 12/26/2018 8:37 PM WIND POWER PROJECT MANAGER Sexual Orientation Choose not to disclose 2020 3:46 PM CDT documented as of this encounter Progress Notes * Ta Medrano - 06/10/2025 1:01 PM CDT Patient was provided transportation assistance in the form of a gas card for 06/10/25 and 06/15/25 toassist with gas costs to and from appointments. I informed patient that transportation funds are limited and based on availability and eligibility criteria. Encouraged them to reach out to the patient navigation team with any questions. [facility] [phone]. documented in this encounter Plan of Treatment Upcoming Encounters Date Type Department Care Team (Latest Contact Info) Description 06/30/2025 10:20 AM CDT Lab Department of Laboratory Medicine and Pathology, [facility], in [place], [place] [address] [place] [phone] Jessica Rousseau M.B.B.S. [address] [place] [phone] 06/30/2025 11:00 AM CDT Nurse Only [facility] in [place], [place] [address] [place] [address] Jessica Rousseau M.B.B.S. [address] [place] [phone] 06/30/2025 11:30 AM CDT Office Visit [facility] Trans[facility] Clinical Regeneration in [place], [place] [address] [place] [phone] Jessica Rousseau M.B.B.S. [address] [place] [phone] 06/30/2025 3:00 PM CDT Appointment Department of Radiology, [facility], in [place], [place] [address] [place] [phone] Carlee Armas APRN, C.N.P., D.N.P., M.S.N. [address] [place] [phone] 07/03/2025 8:00 AM CDT Telemedicine Department of Palliative Care in [place], [place] [address] [place] [address] Yary Landa D.O. [address] [place] [phone] 07/15/2025 9:00 AM CDT Telemedicine Pedro [facility]rav[facility] in [place], [place] [address] [place] [address] Jessica Rousseau M.B.B.S. [address] [place] [phone] 08/11/2025 9:00 AM CDT Nurse Only Section of Infectious Diseases in [place], [place] [address] [place] [address] Jessica Rousseau M.B.B.S. [address] [place] [phone] 08/11/2025 10:20 AM CDT Comprehensive Visit Division of Gastroenterology in [place], [place] [address] [place] [phone] Jessica Rousseau M.B.B.S. [address] [place] [phone] documented as of this encounter Visit Diagnoses Not on filedocumented in this encounter Additional Health Concerns Infection Onset Date Last Indicated Resolved Time Protective Environment 03/02/2023 03/02/2023 Assessment Noted Time PHQ-9 Depression Total Score: 2 12/10/19 25 2:46 PM WIND POWER PROJECT MANAGER documented as of this encounter Care Teams Sludge Control Attendant Relationship Specialty Start Date End Date Renzo Andres M.D. [address] [place] [phone] PCP - General Family Medicine 04/25/23 documented as of this encounter
--- OUTSIDE RECORDS SUMMARY | 2025-06-10 13:20 | XMS_ITS | Encounter Summary ---
Author Organization [facility] Address [address] [place] [address] Care Team Providers Care Home Performance Consultant Name Role Phone Renzo Andres M.D. Primary Care Provider Reason for Visit * Reason Comments Immunizations Encounter Details Date Type Department Care Team (Late st Contact Info) Description 06/10/2025 1:20 PM CDT Nurse Only Section of Infectious Diseases in [place], [place] [address] [place] [phone] Jessica Rousseau M.B.B.S. [address] [place] [phone] Carolyn Gardner RKatalinaNKatalina [address] [place] [phone] Immunizations Social History Tobacco Use Types Packs/Day [...] your living situation today? I have a [facility] place to live 05/28/2025 Education Answer Date Recorded What is the highest level of school you have completed or the highest degree you have received? Some college, no degree 04/24/2019 Comments No Sex and Gender Information Value Date Recorded Sex Assigned at Female 12/26/2018 8:37 PM SILK CREPE MACHINE OPERATOR Legal Sex Female 2:43 PM SILK CREPE MACHINE OPERATOR Gender Identity Female 12/26/2018 8:37 PM SILK CREPE MACHINE OPERATOR Sexual Orientation Choose not to [...] Laboratory Medicine and Pathology, [facility] in [place], [place] [address] [place] [address] Jessica Rousseau M.B.B.S. [address] [place] [phone] 06/30/2025 11:00 AM CDT Nurse Only Pedro sanchez [facility] for Transplantation and Clinical Regeneration in [place], [place] [address] [place] [address] Jessica Rousseau M.B.B.S. [address] [place] [phone] 06/30/2025 11:30 AM CDT [facility] in [place], [place] [address] [place] [phone] Jessica Rousseau M.B.B.S. [address] [place] [phone] 06/30/2025 3:00 PM CDT Appointment Department of Radiology, [facility], in [place], [place] [address] [place] [address] Carlee Armas APRN, C.NKatalinaP., D.N.P., M.S.N. [address] [place] [phone] 07/03/2025 8:00 AM CDT Telemedicine Department of Palliative Care in [place], [place] [address] [place] [phone] Yary Landa D.O. [address] [place] [phone] 07/15/2025 9:00 AM CDT Telemedicine [facility] Aravind [facility] for Transplantation and Clinical Regeneration in [place], [place] [address] [place] [phone] Jessica Rousseau M.B.B.S. [address] [place] [phone] 08/11/2025 9:00 AM CDT Nurse Only Section of Infectious Diseases in [place], [place] [address] [place] [phone] Jessica Rousseau M.B.B.S. [address] [place] [phone] 08/11/2025 10:20 AM CDT Comprehensive Visit Division of Gastroenterology in [place], [place] [address] [place] [phone] Jessica Rousseau M.B.B.S. [address] [place] [phone] documented as of this encounter Visit Diagnoses Diagnosis Need Vaccine Immunization- Primary documented in this encounter Additional Health Concerns Infection Onset Date Last Indicated Resolved Time Protective Environment 03/02/2023 03/02/2023 Assessment Noted Time PHQ-9 Depression Total Score: 2 12/10/19 25 2:46 PM SILK CREPE MACHINE OPERATOR documented as of this encounter Care Teams Home Performance Consultant Relationship Specialty Start Date End Date Renzo Andres M.D. [address] [place] [address] [place] [phone] PCP - General Family Medicine 04/25/23 documented as of this encounter
--- OUTSIDE RECORDS SUMMARY | 2025-06-12 16:28 | XMS_ITS | Encounter Summary ---
Author Organization [facility] Address [address] [place] [id number] Care Team Providers Care Gyroscope Repairer Name Role Phone Renzo Andres M.D. Primary Care Provider Encounter Details Date Type Department Care Team (Latest Contact Info) Description 06/12/2025 4:28 PM CDT - 06/13/2025 5:22 PM CDT Hospital Encounter [facility], Tenth Floor [address] [place] [address] Mallory Sharif M.D. [address] [place] [phone] Carlos Lawton M.D. [address] [place] [phone] Discharge Disposition: Home or Self Care Social [...] things needed for daily living? No 06/12/2025 [facility] Utilities Answer Date Recorded In the past 12 months has th e electric, gas, oil, or water company threatened to shut off services in your home? No 06/12/2025 Depression Answer Date Recor ded PHQ-9 Total Score (max 27) 2 12/10 Housing Stability Answer Date Recorded What is your living situation today? I have a [facility] place to live 06/12/2025 Education Answer Date Recorded What is the highest level of school you have completed or the highest degree you have received? Some college, no degree 04/24/2019 Comments No Sex and Gender Information Value Date Recorded Sex Assigned at Female 12/26/2018 8:37 PM INSULATION WORKER FURNACE INSTALLER Legal Sex Female 2:43 PM INSULATION WORKER FURNACE INSTALLER Gender Identity Female 12/26/2018 8:37 PM INSULATION WORKER FURNACE INSTALLER Sexual Orientation Choose not to disclose 2020 [...] this encounter Discharge Summaries * Analia Carter, TURNSTILE ATTENDANT, C.N.P. - 06/13/2025 2:42 PM CDT DISCHARGE SUMMARY BRIEF OVERVIEW Hospital: [facility] Discharge Provider: Mallory Sharif M.D. Primary Team: [facility] Primary Care Providers: Renzo Andres M.D. (General) [address] [place] [phone] Primary Care Provider Primary Care Provider Other [...] [facility] Laboratory Medicine 06/15/2025 9:45 AM ROOM [place] [address] [place] 7[address] Procedural 06/15/2025 2:00 PM TXP BMT [...] through Care Everywhere. * Acetaminophen (By mouth) (Tanzanian) * Diphenhydramine (By mouth) (Tanzanian) * Laxative, Stool Softeners (By mouth) (Tanzanian) * Ibuprofen (By mouth) (Tanzanian) * Laxative, Stimulant (By mouth) (Tanzanian) documented in this encounter Medications at Time [...] (two) times a day. 60 tablet 04/15/2025 alum-mag hydroxide-simeth (Maalox) 200-200-20 mg/5 mL suspension Take 30 mL by mouth every 4 (four) hours as needed for indigestion (dyspepsia). 06/13/2025 ARIPiprazole (Abilify) 10 mg tablet Take 1 tablet (10 mg total) by mouth daily. Dose change 12/02/2024 30 tablet 5 04/15/2025 10/12/20 25 cholecalciferol (Vitamin D3) 50 mcg (2,000 Unit) tablet Take 50 mcg by mouth daily. diphenhydrAMINE (BenadryL) 25 mg capsule Take 1 capsule (25 mg total) by mouth every 6 (six) hours as needed for itching. 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 120 capsule 04/29/2025 ibuprofen 400 mg tablet Take 1 tablet [...] (two) times a day. 60 tablet 04/29/2025 posaconazole (NoxafiL) [address] tabletIndications:L eukemia Myeloid Chronic BCR/ABL Positive Remission (HCC),Transplant Bone Marrow Allogeneic (HCC) Take 3 tablets (300 mg total) by mouth daily. 90 tablet 06/13/2025 prochlorperazine (Compazine) 10 mg tablet Take 1 [...] Indication: Chronic Pain/Nonacute Pain. 4 patch 05/25/2025 06/19/20 25 docusate sodium (Colace) 100 mg capsule Take 1 capsule (100 mg total) by mouth 2 (two) times a day. 06/13/2025 06/23/20 25 HYDROmorphone (Dilaudid) 1 mg/mL liquidIndications:C hronic Pain/Nonacute Pain Take 0.5 mL (0.5 mg total) by mouth daily as needed for pain Indication: Chronic Pain/Nonacute Pain. 10 mL 05/13/2025 06/27/20 25 pantoprazole (Protonix) 40 mg EC tablet Take 1 tablet (40 mg total) by mouth 2 (two) times a day before morning and evening meals. 60 tablet 1 05/29/2025 4:28 PM CDT 05/29/2025 06/23/20 25 predniSONE (Deltasone) 10 mg tablet Take 3 tablets (30 mg total) by mouth daily for 4 days, THEN 2 tablets (20 mg total) daily for 3 days, THEN 1 tablet (10 mg total) daily for 3 days. 21 tablet 06/13/2025 06/23/20 25 sennosides-docusate sodium (Senokot-S) 8.6-50 mg per tablet Take 1 tablet by mouth 2 (two) times a day as needed for constipation. 06/13/2025 06/23/20 25 documented as of this encounter Progress Notes * Analia Carter, TURNSTILE ATTENDANT, C.N.P. - 06/13/2025 7:17 AM CDT SUBJECTIVE Ms. Radha Martinez is a 35 yo female with a past medical history CML. 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 She is currently day +185 . Ms. aMrtinez admits to the inpatient BMT service today [...] Intake/Output Summary (Last 24 hours) at 06/13/2025 07 Last data filed at 06/12/2025 2100 Gross [...] donor DNA and approximately 40% recipient DNA. [id number]% donor DNA and approximately 0% recipient DNA. [...] had just started 40 mg daily today [address]) - monitor if chest pressure improves (this may also help the slight increase in ALT). * Echocardiogram - first evaluable to assess for pericardial effusion - 06/12/2025: Patient reports she was unable to pickle cutter Budesonide due to pharmacy availability, butshe did [...] right eye. Wears glasses. - Followed by [facility] in [place], [place]. - Patient will notify team if any vision changes. # Blood Products # TACO - Requires infusion of platelets at a slower rate # Disposition - Ms. Radha Martinez will be discharged to home in stable condition. documented in this encounter H&P Notes * Jurgen Alexis, Pharm.D., M.S., R.Ph., BCPS - 06/13/2025 7:31 AM CDT 35 y.o. [...] SUBJECTIVE TRANSPLANT PHYSICIAN Dr. Jessica Rousseau, pager [phone]. CHIEF COMPLAINT Radha Martinez is a 35 [...] reticulin fibrosis noted. The cytogenetics identified a [place] chromosome in 20 metaphases. The BCR- ABL1 [...] t(9;22) metaphases. 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 06/17/2024: feeling quite symptomatic since the [...] Access [place] CVC placed on 12/03/24 by [facility]. Social Work Seen and cleared on [...] prophylaxis: Ursodiol 600 mg two times daily. [facility] ID Number: [id number] [...] Results from last 7 days Lab Units 06/12/257 06/07/25 1212 HEMOGLOBIN g/dL 11.8 11.5* HEMATOCRIT % 36.3 36.3 RBC AUTO x10(12)/L 4.33 4.28 MCV fL 83.8 84.8 RBC DISTRIBUTION WIDTH AUTO % 14.2 13.5 WBC x10(9)/L 6.8 3.2* NEUTROPHILS AUTO x10(9)/L 5.73 2.33 PLATELETS AUTO x10(9)/L 203 152* Results from last 7 days Lab Units 06/12/25 1737 06/07/25 1212 SODIUM mmol/L 140 139 CHLORIDE mmol/L [...] donor DNA and approximately 40% recipient DNA. [id number]% donor DNA and approximately 0% recipient DNA. [...] had just started 40 mg daily today 64197) - monitor if chest pressure improves (this may also help the slight increase in ALT). * Echocardiogram - first evaluable to assess for pericardial effusion - 06/12/2025: Patient reports she was unable to pickle cutter Budesonide due to pharmacy availability, butshe did [...] right eye. Wears glasses. - Followed by [facility] in [place], [place]. - Patient will notify team if [...] [place]; Surgeon: Brianna Hernandez M.D., Ph.D.; Location: [facility] OR documented in this encounter Consult Notes * Therese Bass RDN, LD - 06/13/2025 3:09 PM CDTAssociated Order(s): Dietitian Consult (Hospital) Dietitian Consult ([facility]) Referring Provider: Practiceadvisory, Automatedrequest Clinical Nutrition: Initial [...] each Take at: Dinner 06/13/25 1457 06/13/25 1457 Oral supplement -Supplement; Boost Soothe (strawberry kiwi); 1 each; Take at: Breakfast (Oral Nutrition Supplement) Until discontinued Question Answer Comment Type: Supplement Supplement: Boost Soothe (strawberry kiwi) Size: 1 each Take at: Breakfast 06/13/25 1457 06/13/25 1457 Oral supplement -Supplement; Ensure (vanilla); 1 each; [...] 101 kg (06/12/2025) Current Weight: 101 kg [place] Body Weight (Calculated) : 63.9 kg BMI [...] Accumulation: Absent Estimated Needs: Total Calorie Needs: 8872-7663 calories/day Method to Estimate Energy Needs: [place]-St Jeor ( kcal/kg) Weight Used for Equation Calculations: [...] about patient's nutritional care please contact pager [phone] on weekdays 07:30-16:00 or [phone] on weekends/holidays ([facility]) [phone]. [1] Past Medical History: Diagnosis Date Amblyopia Bilateral Anemia Anxiety Generalized Disorder Depressive Disorder Fibromyalgia 2020 Headache Unspecified Irritable Bowel Syndrome, Unspecified 2015 Leukemia Migraine Headache Other Injury Of Unspecified Body Region Strabismus [2] Past Surgical History: Procedure Laterality Date EYE SURGERY Right 1989 INSERTION CENTRAL VENOUS LINE N/A 12/03/2024 Procedure: INSERTION CENTRAL VENOUS LINE, [place]; Surgeon: Brianna Hernandez M.D., Ph.D.; Location: [facility] [3] Allergies Allergen Reactions Oxycodone GI intolerance Severe nausea Bupropion Edema (Reselect Reaction) Grapefruit Other (see comments) Drug-drug interaction with Bosulif (bosutinib); This had also been noted w/ prior therapy which patient is no longer taking (Tasigna (nilotinib)). [4] Current Facility-Administered Medications: acetaminophen tablet 650 mg (TylenoL), 650 mg, oral, Q4H PRN, Alok Russ APRN, C.N.P., D.N.P. acyclovir tablet 400 [...] Potts APRN, C.N.P., D.N.P., 10 mg at 06/12/253 [START ON 06/19/2025] buprenorphine 5 mcg/hour 1 [...] (Narcan), 0.2 mg, intravenous, PRN, Jurgen Alexis, Pharm.D., M.S., R.Ph., BCPS ondansetron ODT disintegrating tablet [...] APRN, C.N.P., D.N.P., 500 mg at 06/13/[address] tablet 300 mg (NoxafiL), 300 mg, oral, Daily, Alok Russ APRN, C.N.P., D.N.P., 300 mg at 06/13/25 0911 predniSONE tablet 40 mg (Deltasone), 40 mg, [...] of Laboratory Medicine and Pathology, [facility] in [place], [place] [address] [place] [phone] Jessica Rousseau M.B.B.S. [address] [place] [phone] 06/30/2025 11:00 AM CDT Nurse Only Pedro Fatima Lebo for Transplantation and Clinical Regeneration in [place], [place] [address] [place] [phone] Jessica Rousseau M.B.B.S. [address] [place] [phone] 06/30/2025 11:30 AM CDT [facility] in [place], [place] [address] [place] [address] Jessica Rousseau M.B.B.S. [address] [place] [phone] 06/30/2025 3:00 PM CDT Appointment Department of Radiology, [facility], in [place], [place] [address] [place] [phone] Carlee Armas APRN, C.N.P., D.N.P., M.S.N. [address] [place] [phone] 07/03/2025 8:00 AM CDT Telemedicine Department of Palliative Care in [place], [place] [address] [place] [phone] Yary Landa D.O. [address] [place] [phone] 07/15/2025 9:00 AM CDT Telemedicine [facility] Transplantation and Clinical Regeneration in [place], [place] [address] [place] [phone] Jessica Rousseau M.B.B.S. [address] [place] [phone] 08/11/2025 9:00 AM CDT Nurse Only Section of Infectious Diseases in [place], [place] [address] [place] [phone] Jessica Rousseau M.B.B.S. [address] [place] [phone] 08/11/2025 10:20 AM CDT Comprehensive Visit Division of Gastroenterology in [place], [place] [address] [place] [phone] Jessica Rousseau M.B.BKatalinaS. [address] [place] [phone] documented as of this encounter Procedures Procedure [...] D.N.P. LAB BLOO D ADD-ON Final Result [facility] [address] [facility] [address] [place] [address] * (ABNORMAL) CBC with Differential, Blood (06/13/2025 [...] D.N.P. LAB BLOO D ADD-ON Final Result [facility] [address] [place] [address], [facility] DTL [facility] [address] [place] [address] [facility] [address] [place] [address] * CT Abdomen Pelvis with IV Contrast [...] the abdomen or pelvis. Moderate colonic stoolburden. us Renita Potts APRN, C.N.P., D.N.P. [facility] CT PROC EDURES Final Result * Comprehensive Metabolic Panel (06/12/2025 5:37 PM CDT) Potassium, S 5.0 3.6 - 5.2 mmol/L [...] D.N.P. LAB BLOO D ADD-ON Final Result [facility] [address] [place] [address], [facility] DTL [facility] [address] [place] [address] * (ABNORMAL) CBC no call back, reflex [...] 06/12/2025 5:44 PM CDT us Alok Russ TURNSTILE ATTENDANT, C.N.P., D.N.P. LAB BLOO D NON ADD-ON Final Result [facility] [address] [place] [address], [place] DTL [facility] [address] [place] [address] DHPM [facility] [address] [place] [address] documented in this encounter Visit Diagnoses Diagnosis [...] crush or chew. Given 06/13/2025 9:52 AM C DT [address] capsule 120 mg (Cymbalta) [...] Daily, First dose on Sun06/13/25 at 0900 Given 06/13/2025 9:11 AM CDT [...] 1 tablet, oral, Daily, First dose on Sun06/13/25 at 0900, Drug Monitoring Program: Pharmacist to [...] Raymond Perez R.N.) 910 (Given - Provider: Vickie SolomonN.) ARIPiprazole tablet 10 mg (Abilify) 10 mg, oral, Every afternoon, First dose (after last modification) on Sun06/12/25 at 1730 1743 (Given - Provider: Ariadna Schumacher RKatalinaN.) 1530 (Given - Provider: Vickie SolomonN.) buprenorphine 5 mcg/hour 1 patch (Butrans) 1 patch, transdermal, Administer over 7 Days, Weekly, First dose (after last modification) on Sun06/19/25 at 0900, Indications: Chronic Pain/Nonacute Pain cholecalciferol (vitamin D3) tablet 50 mcg 50 mcg, oral, Daily, First dose on Sun06/13/25 at 0900, cholecalciferol (vitamin D3) orderable was interchanged for cholecalciferol (vitamin D3) tablet/capsule 910 (Given - Provid er: Ariadna Schumacher RKatalinaN.) docusate sodium capsule 100 mg (Colace) 100 mg, oral, 2 times daily, First dose on Sun06/13/25 at 0900, Do NOT crush or chew. 951 (Given - Provid er: Vickie SolomonN.) DULoxetine DR capsule 120 mg (Cymbalta) 120 [...] Sun06/12/25 at 2100 2008 (Given - Provider: Raymond Perez R.N.) pantoprazole DR tablet 40 mg (Protonix) 40 mg, oral, 2 times daily before morning and evening meals, First dose on Sun06/13/25 at 0700, Swallow whole. Do NOT crush, chew, or split tablet. 0646 (Given - Provid er: Marko Shine R.N.)1530 (Given - Provider: Ariadna Schumacher R.N.) penicillin [...] 300 mg, oral, Daily, First dose on Sun06/13/25 at 0900, Swallow whole. Do NOT crush, chew, or split tablet., Drug Monitoring Program: Pharmacist to adjust medication dosing based on indication and drug clearance factors., Indications: Prophylaxis, medical 910 (Given - Provid er: Ariadna Schumacher R.N.) predniSONE tablet 40 mg (Deltasone) 40 mg, oral, Daily, First dose on Sun06/13/25 at 0900 09 (Given - Provid er: Ariadna Schumacher R.N.) [...] 1 tablet, oral, Daily, First dose on Sun06/13/25 at 0900, Drug Monitoring Program: Pharmacist to adjust medication dosing based on indication and drug clearance factors., Indications: Prophylaxis, medical 0911 (Given - Provid er: Ariadna cShumacher R.N.) PRN Medication Order 06/11/2025 06/12/2025 06/13/2025 acetaminophen [...] 0439 0649 (Given - Provid er: Marko Shine RKatalinaNKatalina) HYDROmorphone (PF) injection 0.2 mg (Dilaudid) 0.2 mg, intravenous, Every 4 hours PRN, Breakthrough pain between PO doses, Starting on Sun06/12/25 at 2347 0002 (Given - Provid er: Vickie NunezN.) HYDROmorphone tablet 1 mg (Dilaudid) 1 mg, [...] Pain 2008 (Given - Provider: Raymond Perez RKatalniaNKatalina) 0646 (Given - Provider: Marko Shine R.N.) ibuprofen tablet 400 mg 400 mg, oral, [...] Guidelines 1835 (Given - Provider: Saranya Arambula) loperamide capsule [...] PRN, constipation, Starting on Sun06/13/25 at 0821 1310 (Given - Provid er: Ariadna Schumacher R.N.) documented in this encounter Additional Health Concerns Infection Onset Date Last Indicated Resolved Time Protective Environment 03/02/2023 03/02/2023 Assessment Noted Time PHQ-9 Depression Total Score: 2 12/10/19 25 2:46 PM INSULATION WORKER 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 [address] [place] [address] [place] [phone] PCP - General Family Medicine 04/25/23 documented as of this encounter
--- OUTSIDE RECORDS SUMMARY | 2025-06-15 09:13 | XMS_ITS | Encounter Summary ---
Author Organization [facility] Address [address] [place] [address] Care Team Providers Care Tooler Name Role Phone Renzo Andres M.D. Primary [...] Examination Following Bone Marrow Transplant Corticosteroid Treatment Miniature Model Maker Systemic Procedures Biopsy Bone Marrow, Sedated NV DX BONE MARROW BX & ASPIR Jessica Rousseau M.B.B.S. 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 [address] [place] [address] Phone: tel: fax: [facility] Referral ID Status Reason Start Date Expiration Date Visits Re quested Visits Authorized [id number] Closed 03/25/2025 06/25/2026 1 1 Encounter Details Date Type Department Care Team (Latest Contact Info) Description 06/15/2025 9:13 AM CDT - 06/15/2025 11:59 PM CDT Hospital Encounter Outpatient Procedure Center in [place], [place] [address] [place] [address] Jessica Rousseau M.B.B.S. 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 No 06/12/2025 [facility] Utilities Answer Date Recorded In the past 12 months has th e electric, gas, oil, or water company threatened to shut off services in your home? No 06/12/2025 Depression Answer Date Recor ded PHQ-9 Total Score (max 27) 2 12/10 Housing Stability Answer Date Recorded What is your living situation today? I have a [facility] place to live 06/12/2025 Education Answer Date Recorded What is the highest level of school you have completed or the highest degree you have received? Some college, no degree 04/24/2019 Comments No Sex and Gender Information Value Date Recorded Sex Assigned at Female 12/26/2018 8:37 PM ANIMAL WARDEN Legal Sex Female 2:43 PM ANIMAL WARDEN Gender Identity Female 12/26/2018 8:37 PM ANIMAL WARDEN Sexual Orientation Choose not to disclose 2020 [...] have immediate or urgent concerns, please call [phone] between the hours of 7 am and 11pm. If you have concerns outside of these hours, call the [facility] Computer Tape Librarian at [phone] and ask to speak to the Weight Training Instructor on-call. * Attachments The following attachments cannot [...] Examination Following Bone Marrow Transplant; Corticosteroid Treatment Miniature Model Maker Systemic Post-Procedure Diagnose(s): Leukemia Myeloid Chronic BCR/ABL [...] Lab Department of Laboratory Medicine and Pathology, [facility], in [place], [place] [address] [place] [phone] Jessica Rousseau M.B.B.S. [address] [place] [phone] 06/30/2025 11:00 AM CDT Nurse Only Pedro Fat[facility] in [place], [place] [address] [place] [phone] Jessica Rousseau M.B.B.S. [address] [place] [phone] 06/30/2025 11:30 AM CDT [facility] in [place], [place] [address] [place] [address] Jessica Rousseau M.B.B.S. [address] [place] [phone] 06/30/2025 3:00 PM CDT Appointment Department of Radiology, [facility], in [place], [place] [address] [place] [address] Carlee Armas APRN, C.N.P., D.N.P., M.S.N. [address] [place] [phone] 07/03/2025 8:00 AM CDT Telemedicine Department of Palliative Care in [place], [place] [address] [place] [phone] Yary Landa D.O. [address] [place] [phone] 07/15/2025 9:00 AM CDT Telemedicine [facility] Transplantation and Clinical Regeneration in [place], [place] [address] [place] [address] Jessica Rousseau M.B.B.S. [address] [place] [phone] 08/11/2025 9:00 AM CDT Nurse Only Section of Infectious Diseases in [place], [place] [address] [place] [phone] Jessica Rousseau M.B.B.S. [address] [place] [phone] 08/11/2025 10:20 AM CDT Comprehensive Visit Division of Gastroenterology in [place], [place] [address] [place] [phone] Jessica Rousseau M.B.B.S. [address] [place] [phone] documented as of this encounter Procedures Procedure Name Priority Date/Time Associated Diagnosis Comments DNA EXTRACT AND HOLD Routine 06/15/2025 9:50 AM CDT CHIMERISM TRANSPLANT NO CELL SORT Routine 06/15/2025 9:50 AM CDT BCR/ABL1, P210, QUANT, MONITOR Routine 06/15/2025 9:50 AM CDT MYELOID NEOPLASMS, NGS Routine 9:50 AM CDT NV DX BONE MARROW BX & ASPIR Routine [...] 1). ClinicalTrials.gov : http://clinicaltri als.gov/ct2/search /advanced 2). [facility]: http://www.woonsocket.[facility]/research/clinica l-trials 3). National Cancer [place]: http://www.cancer. gov/clinicaltrials /search 4). The Leukemia & Lymphoma Society's Clinical Trial Support Center https://www.hemato logy.org/education /clinicians/clinic fx-qkjyh-zallcva-c enter 06/22/2025 3:03 PM CDT DTL Variants of Unknown Significance (VUS) None 06/22/2025 3:03 PM CDT DTL Additional Information None A portion of the testing process was performed at [facility] site [id number]. 06/22/2025 3:03 PM CDT DTL Method DNA [...] developed and its performance characteristics determined by [facility] in a manner consistent with CLIA requirements. This test has not been cleared or approved by the U.S. Food and Drug Administration. *Some genetic or genomic alterations such as very large insertion/deletion events, copy number alterations (EMERGENCY SERVICES PROFESSIONAL) and gene translocation events are not detected [...] (clonal cytopenias of uncertain significance, CCUS) [PMIDs: [id number], [id number], [id number], and [id number]]. Distinction between CHIP or CCUS and a [...] very large insertion/deletion events, copy number alterations (EMERGENCY SERVICES PROFESSIONAL) and gene translocation events are not detected [...] require complete integration with current pathology case [id number] for final interpretation. The result should NOT [...] Jessica Barnes LAB GENETIC TESTING Final Result [facility] [address] [place] [address], [facility] DT 200 [facility] [address] [place] [address] * Hematologic Disorders, DNA Extract and Hold [...] the Molecular Hematopathology Laboratory's test menu, contact [facility] at [phone]. Method summary: DNA was extracted using an EZ1 BioRobot (Qiagen). 06/15/2025 9:50 AM CDT 06/15/2025 3:07 PM CDT Jessica Barnes LAB BLOOD NON ADD-ON Final Result [facility] [address] [place] [address], [facility] DTL [address] [place] [address] * BCR/ABL1, p210, mRNA Detection, Reverse Casket Assembler-PCR (RT-PCR), Quantitative, Monitoring Chronic Myeloid Leukemia (CML) (06/15/2025 9:50 AM CDT) Specimen Type Bone marrow 06/16/2025 9:12 AM CDT DTL BCR/ABL1, p210 Result see interpretation 06/16/2025 9:12 AM CDT DTL Interpretation These results are considered ancillary findings and require complete integration with the current pathology case [id number] for final interpretation. The result should NOT [...] level was evaluated using a quantitative, reverse welder helper PCR. The analytical sensitivity of this assay [...] all possible fusion forms. Please contact the [facility] at [phone] with questions or if additional testing is required. See the [facility] Interpretive Handbook for method [...] developed and its performance characteristics determined by [facility] in a manner consistent with CLIA requirements. This test has not been cleared or approved by the U.S. Food and Drug Administration. 06/15/2025 9:50 AM CDT 06/15/2025 3:07 PM CDT us Jessica Branes LAB BLOOD NON ADD-ON Final Result [facility] [address] [place] [address], [facility] DT [address] [place] [address] * Chimerism Transplant No Cell Sort (06/15/2025 9:50 AM CDT) Specimen Type Bone marrow 06/17/2025 5:01 PM CDT DTL Interpretation These results are considered ancillary findings and require complete integration with the current pathology case [id number] for final interpretation. The result should NOT [...] and recipient DNA mixed chimerism). Markers analyzed: [id number], [id number], FGA, SE33, vWA, D21S11, [id number], [id number], N92T734, D18S51, Q3I442, F5S6264, CSF1PO, W9Z549, S97I544, O67N413, TPOX, K41E139, N7Z697 and [id number] 06/17/2025 5:01 PM CDT DTL Comment: ----ADDITIONAL INFORMATION---- Method summary - Chimerism: Genomic DNA was extracted and the specimen evaluated for the percentages of donor and recipient DNA using a PCR-based method that amplifies several highly polymorphic short tandem repeats (see [facility] Interpretive Handbook for method details). This test was developed and its performance characteristics determined by [facility] in a manner consistent with CLIA requirements. This test has not been cleared or approved by the U.S. Food and Drug Administration. 06/15/2025 9:50 AM CDT 06/15/2025 12:09 PM CDT us Jessica Barnes LAB GENETIC TESTING Final Result [facility] [address] [place] [address], [facility] DT 200 [facility] [address] [place] [address] * NV DX BONE MARROW BX & ASPIR (06/15/2025 [...] (06/15/2025 12:00 AM CDT) 06/16/2025 10:32 AM CDT [facility] Report electronically signed by Hanna Xiong M.D., Ph.D. I verify that I have examined all relevant slides/materials for the specimen(s) and rendered or confirmed the diagnosis. 06/16/2025 10:32 AM [facility] Gross Description B: Core biopsy specimens were [...] C1. Grossed by OER. 06/16/2025 10:32 AM [facility] Addendum ADDENDUM Molecular analysis for next generation sequencing (NGSHM), bone marrow ([id number]; 06/15/2025): Pathogenic Mutations Detected: None No other [...] chimerism transplant no cell sort, bone marrow ([id number]; 06/15/2025): The specimen contains approximately 100% donor DNA and approximately 0% recipient DNA. 3 informative loci were used in the analysis of this sample. See molecular report for complete details. Molecular Hematopathology studies interpreted by Jaylin Beltran M.D. Signed by Hanna Xiong M.D., Ph.D. 06/18/2025 11:35 AM ADDENDUM Molecular analysis for BCR/ABL1, p210, quant, bone marrow ([id number]; 06/15/2025): Negative. No BCR/ABL1 p210 mRNA transcripts [...] Ph.D. 06/16/2025 3:33 PM 06/23/2025 8:41 AM T [facility] Comment:REVISED RESULTS Interpretation FINAL DIAGNOSIS Peripheral blood, [...] from date of extraction. 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) Abnormal Finding Of Blood Chemistry Unspecified Follow Up Examination Following Bone Marrow Transplant Corticosteroid Treatment Mcfp Systemic documented in this encounter Administered Medications Inactive Administered Medications - up to 3 most recent administrations Medication Order MAR Action Action Date Dose Rate Site Lactated Ringer's 80 mL/hr, intravenous, Continuous, Starting on Sun06/15/25 at 1000, Pre-Op New Bag 06/15/2025 9:38 AM CDT 80 mL/hr 80 mL/h r documented in this encounter Additional Health Concerns Infection Onset Date Last Indicated Resolved Time Protective Environment 03/02/2023 03/02/2023 Assessment Noted Time PHQ-9 Depression Total Score: 2 12/10/19 25 2:46 PM ANIMAL WARDEN documented as of this encounter Care Teams Tooler Relationship Specialty Start Date End Date Renzo Andres M.D. [address] [place] [address] [place] [phone] PCP - General Family Medicine 04/25/23 documented as of this encounter
--- OUTSIDE RECORDS SUMMARY | 2025-06-15 09:41 | XMS_ITS | Encounter Summary ---
Author Organization [facility] Address [address] [place] [phone] Care Team Providers Care Regular Senior Care Provider Name Role Phone Renzo Andres M.D. Primary Care Provider [phone] Encounter Details Date Type Department Care Team (Late st Contact Info) Description 06/15/2025 9:41 AM CDT Anesthesia Event Outpatient Procedure Center in [place], [place] [address] [place] [phone] Myla Valenzuela APRN, TANA, DNAP [address] [place] [phone] Kristin Friend M.D. [address] [place] [phone] Anesthesia Record Procedure Summary Procedure Name Responsible Anesthesiologist Anesthesia Start Time Anesthesia Stop Time BIOPSY BONE MARROW Myla Valenzuela APRN, TANA, DNAP 06/15/25 0941 06/15/25 0956 Events Date Time Event Comment 06/15/2025 0928 0941 An Start Machine/Equipme nt Checked Infection Precautions Followed Procedure/Site Verified NPO Status Verified Supine Standard ASA Monitors Applied 0941 T&S Scan Type and Screen Blood Label Created with Armband Scan. 0943 Turnover to Proceduralist 0945 Anesthesia Time Out 0946 Proc Start 0949 Proc Fin 0952 Turnover to ANE Staff 0953 an stop data 0956 An End I completed my handoff to the receiving staff during which we 1. Identified the patient 2. Identified the responsible provider 3. Reviewed the pertinent medical history 4. Discussed the surgical course 5. Reviewed intra-op anesthesia management and issues during anesthesia 6. Set expectations for post-procedure period 7. Allowed opportunity for questions and acknowledgement of understanding. Meds Name Total lidocaine 2% (mg) injection 60 mg propofol 10 mg/mL injection 140 mg Lactated Ringers Free Drip 200 mL * Agents No agents on file. * Blood No blood administrations on file. Lines, Drains, and Airways Type Details Placement Removal Wound 06/15/25; 951; N; Incision; Back; Left, Lower, Medial 06/15/25 0952 by Kevin Villa, RKatalinaN. Peripheral IV Placement Date: 05/20 07/13; Placement Time: 0936; Catheter Size: 22 G; Orientation: Posterior, Right; Location: Hand; Site Prep: Chlorhexidine (Preferred); Technique: Anatomical landmarks; Inserted by: CELINE Brooks; Removal Date: 06/15/25; Removal Time: 1022; Removal Reason: Patient discharged 06/15/25 0936 by Chelsy Piper, R.N. 06/15/25 1022 by Scott Suresh RKatalinaNKatalina documented in this encounter Social History Tobacco [...] things needed for daily living? No 06/12/2025 [facility] Utilities Answer Date Recorded In the past 12 months has th e electric, gas, oil, or water company threatened to shut off services in your home? No 06/12/2025 Depression Answer Date Recor ded PHQ-9 Total Score (max 27) 2 12/10 Housing Stability Answer Date Recorded What is your living situation today? I have a [facility] place to live 06/12/2025 Education Answer Date Recorded What is the highest level of school you have completed or the highest degree you have received? Some college, no degree 04/24/2019 Comments No Sex and Gender Information Value Date Recorded Sex Assigned at Female 12/26/2018 8:37 PM CALENDER MACHINE OPERATOR HELPER Legal Sex Female 2:43 PM CALENDER MACHINE OPERATOR HELPER Gender Identity Female 12/26/2018 8:37 PM CALENDER MACHINE OPERATOR HELPER Sexual Orientation Choose not to disclose 2020 3:46 PM CDT documented as of this encounter OR Notes * Anesthesia Postprocedure Evaluation - Myla Valenzuela, KARON, WASTE BALER, DNAP - 06/15/2025 9:58 AM CDT Patient: Radha Martinez Procedure Summary Date: 06/15/25 Room / Location: Outpatient Procedure Center in [place], [place] Anesthesia Start: 940 Anesthesia Stop: 955 Procedure: BIOPSY BONE MARROW Diagnosis: 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 Please [...] events documented. * Anesthesia Preprocedure Evaluation - Kristin Friend M.D. 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) [C92.10] Transplant Bone Marrow Allogeneic (HCC) [Z94.81] Abnormal Finding Of Blood Chemistry Unspecified [R79.9] Follow Up Examination Following Bone Marrow Transplant [Z09] Corticosteroid Treatment Fdc Systemic [Z79.52] Location: Outpatient Procedure Center in [place], [place] Pertinent components of the patient's history [...] (HCC) OBJECTIVE PHYSICAL EXAMINATION Airway (HEENT) Mallampati: III TM Distance: >3 FB Neck ROM: Full Mouth Opening: >3 cm Cardiovascular Rhythm: Regular Rate: Normal Cardiovascular Assessment: cardiovascular normal Functional Capacity: >4 METS Pulmonary Pulmonary Assessment: Clear General / Constitutional Constitutional Assessment: Normal General State of Health:: healthy appearing and calm Neurological Neurologic Assessment: alert Dental Dental Assessment: dentition intact ASSESSMENT / PLAN ANESTHESIA PLAN ASA: 3 Anesthesia Plan: MAC Patient seen and allergies reviewed, anesthesia plan and risks discussed directly with patient /legal guardian or through an american sign language interpreter. The use of blood products not discussed Approval to Proceed: approved for anesthesia documented in this encounter Plan of Treatment Upcoming Encounters Date Type Department Care Team (Latest Contact Info) Description 06/30/2025 10:20 AM CDT Lab Department of Laboratory Medicine and Pathology, [facility] in [place], [place] [address] [place] [address] Jessica Rousseau M.B.B.S. [address] [place] [phone] 06/30/2025 11:00 AM CDT Nurse Only [facility] in [place], [place] [address] [place] [address] Jessica Rousseau M.B.B.S. [address] [place] [phone] 06/30/2025 11:30 AM CDT Office Visit [facility] in [place], [place] [address] [place] [address] Jessica Rousseau M.B.B.S. [address] [place] [phone] 06/30/2025 3:00 PM CDT Appointment Department of Radiology, [facility], in [place], [place] [address] [place] [phone] Carlee Armas APRN, C.N.P., D.N.P., M.S.N. [address] [place] [phone] 07/03/2025 8:00 AM CDT Telemedicine Department of Palliative Care in [place], [place] [address] [place] [phone] Yary Landa D.O. [address] [place] [phone] 07/15/2025 9:00 AM CDT Telemedicine [facility] for Trans[facility] and Clinical Regeneration in [place], [place] [address] [place] [phone] Jessica Rousseau M.B.B.S. [address] [place] [phone] 08/11/2025 9:00 AM CDT Nurse Only Section of Infectious Diseases in [place], [place] [address] [place] [phone] Jessica Rousseau M.B.B.S. [address] [place] [phone] 08/11/2025 10:20 AM CDT Comprehensive Visit Division of Gastroenterology in [place], [place] [address] [place] [phone] Jessica Rousseau M.B.B.S. [address] [place] [phone] documented as of this encounter Visit Diagnoses Not on filedocumented in this encounter Administered Medications Inactive Administered Medications - up to 3 most recent administrations Medication Order MAR Action Action Date Dose Rate Site Lactated Ringer's intravenous, Continuous Infusion: Per Instructions PRN, Starting on Sun06/15/25 at 0940, Anesthesia Intra-op New Bag 06/15/2025 9:40 AM CDT lidocaine (PF) (cardiac) injection intravenous, As needed, Starting on Sun06/15/25 at 0945, Anesthesia Intra-op Given 06/15/2025 9:45 AM CDT 60 mg propofoL injection (Diprivan) intravenous, As needed, Starting on Sun06/15/25 at 0945, Anesthesia Intra-op Given 06/15/2025 9:49 AM CDT 40 mg Given 06/15/2025 9:47 AM CDT 40 mg Given 06/15/2025 9:45 AM CDT 60 mg documented in this encounter Additional Health Concerns Infection Onset Date Last Indicated Resolved Time Protective Environment 03/02/2023 03/02/2023 Assessment Noted Time PHQ-9 Depression Total Score: 2 12/10/19 25 2:46 PM CALENDER MACHINE OPERATOR HELPER documented as of this encounter Care Teams Regular Senior Care Provider Relationship Specialty Start Date End Date Renzo Andres M.D. [address] [place] [phone] PCP - General Family Medicine 04/25/23 documented as of this encounter
--- OUTSIDE RECORDS SUMMARY | 2025-06-15 14:00 | XMS_ITS | Encounter Summary ---
Author Organization [facility] Address [address] [place] [address] Care Team Providers Care Airplane Patroller Name Role Phone Renzo Andres M.D. Primary Care Provider Reason for Visit * Transplant (Routine) - Closed Specialty Diagnoses / Procedures Referred By Estefania t Referred To Contact Transplant Jessica Rousseau M.B.B.S. [address] [place] [phone] Phone: tel: fax: [facility] Referral ID Status Reason Start Date Expiration Date Visits Re quested Visits Authorized [id number] Closed 06/11/2025 12/11/2026 1 1 Encounter Details Date Type Department Care Team (Latest Contact Info) Description 06/15/2025 2:00 PM CDT [facility] in [place], [place] [address] [place] [phone] Jessica Rousseau M.B.B.S. [address] [place] [phone] Analia Carter, CLOTH PAINTER, C.N.P. 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 No 06/12/2025 [facility] Utilities Answer Date Recorded In the past 12 months has [facility] electric, gas, oil, or water company threatened to shut off services in your home? No 06/12/2025 Depression Answer Date Recor ded PHQ-9 Total Score (max 27) 2 12/10 Housing Stability Answer Date Recorded What is your living situation today? I have a [facility] place to live 06/12/2025 Education Answer Date Recorded What is the highest level of school you have completed or the highest degree you have received? Some college, no degree 04/24/2019 Comments No Sex and Gender Information Value Date Recorded Sex Assigned at Female 12/26/2018 8:37 PM STUDENT RECORDS SPECIALIST Legal Sex Female 2:43 PM STUDENT RECORDS SPECIALIST Gender Identity Female 12/26/2018 8:37 PM STUDENT RECORDS SPECIALIST Sexual Orientation Choose not to disclose 2020 3:46 PM CDT documented as of this encounter Last Filed Vital Signs Vital Sign Reading Time Taken Comments Blood Pressure - - Pulse - - Temperature - - Respiratory Rate - - Oxygen Saturation - - Inhaled Oxygen Concentration - - Weight 103 kg (227 lb 2.9 oz) 06/15/2025 10:31 A M CDT Height - - Body Mass Index 34.55 06/13/2025 3:06 PM CDT documented in this encounter Progress Notes * Analia Carter, KARON, C.N.P. - 06/15/2025 2:00 PM CDT SUBJECTIVE TRANSPLANT PHYSICIAN Dr. Jessica Rousseau, pager [phone]. HISTORY OF PRESENT ILLNESS Radha Martinez is a 35 y.o. female with a past medical history significant for CML who received a MUD HCT on 12/10/24. She is at [facility] today for the follow up. Day + 187 HISTORY OF PRESENT ILLNESS Please refer to multiple prior notes in EMR for complete hematologic history: Ms. Martinez is a 35 y.o. 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 At the time of diagnosis, there was grade 3 reticulin fibrosis noted. 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 The BCR-ABL1 P [...] t(9;22) metaphases. 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 06/17/2024: feeling quite symptomatic since the [...] prophylaxis: Ursodiol 600 mg two times daily. [facility] ID Number: [id number] [...] 06/01. Biopsies negative for GVHD Interval History 06/15/2025 Ms. Martinez returns to the outpatient clinic accompanied by her mom. This visit was 25 minutes of situations review and planning, physical examination was not done this morning. We reviewed her ongoing situation with pain, ED visits, medication changes, testing that has already been done and discussing coping. She reports that when she discontinued the prednisone accidentally last week she no longer was having chest pain, when she was restarted on this her sternal chest pain started again. She is currentlyon 30 mg and will decrease to 20 mg on Sunday. She is going down 10 mg every 3 days. She tells me that she feels comforted in knowing that her examination is negative. She is relieved that we may have found the confounding factor of her chest pain. She tells me that she has not had a bowel movement yet. She has been taking a stool softener without results. She will start MiraLAX later today. We discussed that she has been struggling with constipation pretty much since she started the Butranspatch. The patch as been very helpful with her leg pain. She is quite pleased by this. She verbalizes that she has been scared that something is terribly wrong. She does experience anxiety which she did treat with lorazepam, but was told that she could not take this while on Butrans. We discussed that she could talk with her prescribing doctor about other medications for anxiety suchas Buspar to see if that would be a medication that she could use. She tells me that she has a listof activities and thoughts that she tries to utilize with her anxiety. She has been utilizing this at the moment. So it seems that her situation as a couple of confounding factors. First the steroids (prednisone) may be contributing to her chest pain, second, her abdominal pain seems to be related to constipation which then leads back to Butrans. Both of these medications have recently been added to her medical regimen recently. She has had a thorough work up over the past few weeks that further testing does not seem warrentedat this time. REVIEW OF SYSTEMS a 10 point ROS was performed and negative with the exception of notation above. Current Outpatient Medications Medication Instructions acetaminophen (TYLENOL) 650 mg, oral, Every 4 hours PRN acyclovir (ZOVIRAX) 400 mg, oral, 2 times daily alum-mag hydroxide-simeth (Maalox) 200-200-20 mg/5 mL suspension 30 mL, oral, Every 4 hours PRN ARIPiprazole (ABILIFY) 10 mg, oral, Daily, Dose change 12/02/2024 buprenorphine (Butrans) 5 mcg/hour 1 patch, transdermal, Weekly cholecalciferol (VITAMIN D3) 50 mcg, Daily diphenhydrAMINE (BENADRYL) 25 mg, oral, Every 6 hours PRN docusate sodium (COLACE) 100 mg, oral, 2 times daily DULoxetine (CYMBALTA) 120 mg, oral, Daily HYDROmorphone (DILAUDID) 0.5 mg, oral, Daily PRN ibuprofen 400 mg, oral, Every 6 hours PRN loperamide (IMODIUM A-D) 2 mg, oral, [...] Daily predniSONE (Deltasone) 10 mg tablet Take 3 tablets (30 mg total) by mouth daily for 4 days, THEN 2 tablets (20 mg total) daily for 3 days, THEN 1 tablet (10 mg total) daily for 3 days. prochlorperazine (COMPAZINE) 10 mg, oral, Every 6 hours PRN sennosides-docusate sodium (Senokot-S) 8.6-50 mg per tablet 1 tablet, oral, 2 times daily PRN sulfamethoxazole-trimethoprim (Bactrim) 400-80 mg per tablet 1 tablet, oral, Daily OBJECTIVE VITAL SIGNS Wt 103 kg BMI 34.55 kg/m?? PHYSICAL EXAMINATION Physical Exam General: Patient is alert, oriented, and in no acute distress. Vitals as noted. Easily rises from her chair, gait is steady down the myers, motions or fluid. Skin: No rash or bruising. Head: Atraumatic. Eyes: Anicteric, KPS: 90% DIAGNOSTICS I have reviewed the recent relevant Diagnostics No results found for this or any previous visit (from the past 24 hours). 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 [id number]% donor DNA and approximately 0% recipient DNA. [...] had just started 40 mg daily today [id number]) - monitor if chest pressure improves (this [...] by [facility] in [place], [place]. - Patient will notify team if any vision changes. # Blood Products # TACO - Requires infusion of platelets at a slower rate # Disposition - 06/25/25 Echocardiogram - 06/25/[address] - 06/25/25 appointments on [place] [address] Rousseau - 06/26/ video visit with Palliative care documented in this encounter Plan of Treatment Upcoming Encounters Date Type Department Care Team (Latest Contact Info) Description 06/30/2025 10:20 AM CDT Lab Department of Laboratory Medicine and Pathology, [facility], in [place], [place] [address] [place] [address] Jessica Rousseau M.B.B.S. [address] [place] [phone] 06/30/2025 11:00 AM CDT Nurse Only [facility] in [place], [place] [address] [place] [address] Jessica Rousseau M.B.B.S. [address] [place] [phone] 06/30/2025 11:30 AM CDT [facility] in [place], [place] [address] [place] [address] Jessica Rousseau M.B.B.S. [address] [place] [phone] 06/30/2025 3:00 PM CDT Appointment Department of Radiology, [facility], in [place], [place] [address] [place] [phone] Carlee Armas APRN, Katie., Heaven.N.P., M.S.N. [address] [place] [phone] 07/03/2025 8:00 AM CDT Telemedicine Department of Palliative Care in [place], [place] [address] [place] [phone] Yary Landa D.O. [address] [place] [phone] 07/15/2025 9:00 AM CDT Telemedicine [facility] for Transplantation and Clinical Regeneration in [place], [place] [address] [place] [address] Jessica Rousseau M.B.B.S. [address] [place] [phone] 08/11/2025 9:00 AM CDT Nurse Only Section of Infectious Diseases in [address] [phone] Jessica Rousseau M.B.B.S. [address] [place] [phone] 08/11/2025 10:20 AM CDT Comprehensive Visit Division of Gastroenterology in [place], [place] [address] [place] [phone] Jessica Rousseau M.B.B.S. 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 [address] [place] [address] SUN[place] Hansen [phone] PCP - General Family Medicine 04/25/23 documented as of this encounter
--- OUTSIDE RECORDS SUMMARY | 2025-06-22 18:56 | XMS_ITS | Encounter Summary ---
Author Organization [facility] Address [address] [place] [address] Care Team Providers Care Appraiser Boats And Marine Name Role Phone Renzo Andres M.D. Primary Care Provider Reason for Referral * Specialty Diagnoses / Procedures Referred By Estefania acosta Referred To Contact RST [facility] [address] [place] [address] Phone: tel: [facility] Referral ID Status Reason Start Date Expiration Date Visits Re quested Visits Authorized Encounter Details Date Type Department Care Team (Latest Contact Info) Description 06/22/2025 6:56 PM CDT - 06/22/2025 11:59 PM CDT Hospital Encounter [facility], [facility], Ninth Floor [address] [place] [phone] Natalya Carlos P.A.-C. 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 No 06/24/2025 Within the last year, have y ou been humiliated or emotionally abused in other ways by your partner or ex-partner? No Within the last year, have y ou been kicked, hit, slapped, or otherwise physically hurt by your partner or ex-partner? No 06/24/2025 Within the last year, have y ou been raped or forced to have any kind of sexual activity by your partner or ex-partner? No 06/24/2025 Hunger Vital Sign Answer Date Recorded Within the past 12 months, y ou worried that your food would run out before you got the money to buy more. Never true 06/24/20 25 Within the past 12 months, t he food you bought just didn't last and you didn't have money to get more. Never true 06/24/2025 PRAPARE - Transportation Answer Date Re corded In the past 12 months, has l ack of transportation kept you from medical appointments or from getting medications? No 04/2025 In the past 12 months, has l ack of transportation kept you from meetings, work, or from getting things needed for daily living? No 06/24/2025 [facility] Utilities Answer Date Recorded In the past 12 months has [facility] [employer], gas, oil, or water [employer] threatened to shut off services in your home? No 06/24/2025 Depression Answer Date Recor ded PHQ-9 Total Score (max 27) 2 12/10 Housing Stability Answer Date Recorded What is your living situation today? I have a [facility] place to live 06/24/2025 Education Answer Date Recorded What is the highest level of school you have completed or the highest degree you have received? Some college, no degree 04/24/2019 Comments No Sex and Gender Information Value Date Recorded Sex Assigned at Female 12/26/2018 8:37 PM CASTING AGENT Legal Sex Female 2:43 PM CASTING AGENT Gender Identity Female 12/26/2018 8:37 PM CASTING AGENT Sexual Orientation Choose not to disclose 2020 3:46 PM CDT documented as of this encounter Last Filed Vital Signs Vital Sign Reading Time Taken Comments Blood Pressure 129/96 06/22/2025 7:08 PM CDT Pulse 86 06/22/2025 7:08 PM CDT Temperature 36.8 C (98.2 F) 06/22/2025 7:08 PM CDT Respiratory Rate 16 06/22/2025 7:08 PM CDT Oxygen Saturation 100% 06/22/2025 7:08 PM CDT Inhaled Oxygen Concentration - - [...] week Indication: Chronic Pain/Nonacute Pain. 4 patch 06/19/2025 cholecalciferol (Vitamin D3) 50 mcg (2,000 Unit) [...] by mouth daily. 60 tablet 1 05/13/2025 docusate sodium (Colace) 100 mg capsule Take 1 capsule (100 mg total) by mouth 2 (two) times a day. 06/13/2025 06/23/20 HYDROmorphone (Dilaudid) 1 mg/mL liquidIndications:C hronic Pain/Nonacute [...] as of this encounter Progress Notes * Jany Crockett RKatalinaN. - 06/22/2025 7:00 PM CDT Reason for patient visit: Left lower abdominal pain Symptoms reported to service: Left lower abdominal pain that sometimes radiates up left abdomen. Orders provided by service: 15mg IM Ketorolac (Toradol). Patient stated that the lowest her pain got with the Ketorolac was 3/10 and an hour after giving the Ketorolac the pain was back to a 6/10. Provider was notified and a order for 2mg oral Dilaudid was put in. At 2145 oral Dilaudid was given. At 2207 patient called nurse in to state that pain is 3/10 and she is feeling much better. Patient made decision to go home. Nurse told patient to bring pain up at appointment tomorrow to get a better plan for pain management. Additional notes: Pt was nauseous 10mg oral compazine was given for nausea. Follow-up: Patient has appointment with Dr. Rousseau in the morning. * Antonio Bowden APRN, C.N.P., D.N.P. - 06/22/2025 7:00 PM CDT # Incoming phone call, 06/22 @ 4688 Phone call was routed from [address] 07-[facility]. High priority message from early afternoonhad not been addressed to patient's satisfaction. She expressed having abdominal pain that alternated from dull to sharp and she was having persistent nausea that oral medications were not alleviating. She had been admitted previously in May 2025 for evaluation of same issues. She did not feel that symptoms had acutely changed but were continuation of previous symptoms but were not well managed.CT at the time of hospitalization had noted moderate stool burden. She has been using MiraLAX and feels her bowels have emptied out. She desired evaluation this evening on 07-23 for her pain and naus ea and was willing to drive down from [place]. She does have follow up on [place] [phone] already scheduled for 06/[address] Rousseau. A 7 pm appointment was made. Report was given to the [facility] moonlighter to assess her this evening and provide supportive care or admission if needed. * Ryan Tipton M.D. - 06/22/2025 7:00 PM CDT SUBJECTIVE Referring Provider Natalya Carlos P.A.-C. CHIEF COMPLAINT/REASON FOR VISIT Abdominal pain/nausea HISTORY OF PRESENT ILLNESS Ms. Martinez is a 35 y.o. 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 At the time of diagnosis, there was grade 3 reticulin fibrosis noted. The cytogenetics identified a [place] chromosome in 20 metaphases. The BCR-ABL1 P 210 transcript was detected and quantitated at 83% on the international scale. She called the day team about abdominal pain and persistent nausea that oral medications were not alleviating. She had been admitted previously in May 2025 for evaluation of same issues. She did notfeel that symptoms had acutely changed but were continuation of previous symptoms but were not wellmanaged. CT at the time of hospitalization had noted moderate stool burden. She has been using MiraLAX and feels her bowels have emptied out. She desired evaluation this evening on St 9-4 for her pain and nausea and was willing to drive downfrom [place]. She does have follow up on [place] already scheduled for 06/[address] Rousseau. Upon arrival, she was HD stable, afebrile and complaining about moderate abd pain on the LLQ 6/10 sharp and radiating to the right side. No severe nausea, she had eaten a sandwich on the way to the hospital. No vomiting, no fever, chills or lightheadedness. No blood in stool or urine. Treatment: 12/12/2018 she initiated cytoreductive therapy with [...] t(9;22) metaphases. 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 06/17/2024: feeling quite symptomatic since the initiation of bosutinib with fatigue, diarrhea, nausea, and vomiting. 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 OBJECTIVE Blood Pressure: 129/96 BP Location: Right arm;Upper Patient Position: Semi-recumbent Pulse Rate: 86 Temperature: 36.8 ??C Temp Source: Oral PHYSICAL EXAM General: Alert, active, oriented, no acute distress Head: Atraumatic Eyes: Anicteric, EOMI, PERRL ENT: Moist oral mucosa, no oral ulcers Heart: Regular rate and rhythm, no murmurs, no gallops, no rubs Lungs: Clear to auscultation bilaterally and anteriorly, symmetrical expansion Abdomen: Nondistended, bowel sounds present and normoactive, tenderness to deep palpation in the lower quadrants, no hepatosplenomegaly, no masses Extremities: No edema Neuro: No gross deficits, oriented in person, time and place Psych: Mood adequate DIAGNOSTICS I have reviewed the recent relevant labs and CT. No results found. Recent Results (from the past 72 hours) Albumin Collection Time: 06/23/25 8:18 AM Result Value Albumin, S 4.3 Alkaline Phosphatase Collection Time: 06/23/25 8:18 AM Result Value Alkaline Phosphatase, S 115 (H) ALT (Alanine Aminotransferase) Collection Time: 06/23/25 8:18 AM Result Value Alanine Aminotransferase (ALT), S 75 (H) AST (Aspartate Aminotransferase) Collection Time: 06/23/25 8:18 AM Result Value Aspartate Aminotransferase (AST), P 54 (H) Bilirubin, Total Collection Time: 06/23/25 8:18 AM Result Value Bilirubin, Total, P 0.2 BUN (Blood Urea Nitrogen) Collection Time: 06/23/25 8:18 AM Result Value BUN (Blood Urea Nitrogen), S 10 Calcium, Total Collection Time: 06/23/25 8:18 AM Result Value Calcium, Total, S 9.4 CBC no call back, reflex T/S HGB <8 Collection Time: 06/23/25 8:18 AM Result Value Hemoglobin 12.0 Hematocrit 37.7 Erythrocytes 4.46 MCV 84.5 RBC Distrib Width 14.3 Platelet Count 182 Leukocytes 3.6 Neutrophils 2.43 Lymphocytes 0.71 (L) Monocytes 0.26 Eosinophils 0.13 Basophils 0.03 Creatinine with Estimated GFR Collection Time: 06/23/25 8:18 AM Result Value Creatinine 0.91 Estimated GFR (eGFR) 84 Glucose, Fasting Collection Time: 06/23/25 8:18 AM Result Value Glucose, P 153 (H) Last Intake 1 Magnesium Collection Time: 06/23/25 8:18 AM Result Value Magnesium, S 2.2 Potassium Collection Time: 06/23/25 8:18 AM Result Value Potassium, S 4.2 Sodium Collection Time: 06/23/25 8:18 AM Result Value Sodium, S 139 LD (Lactate Dehydrogenase) Collection Time: 06/23/25 8:18 AM Result Value Hospital Deanna LD 165 ASSESSMENT / PLAN Abdominal pain Unclear etiology, it could be spasms or constipation. No history of kidney stones, no infectious signs, CT abdomen did not reveal acute pathologies. Managed with Toradol 15 IV once, it helped but not significantly. Then she needed a medication for nausea for which she received compazine. We then tried with oral Dilaudid 2 mg that helped her significantly and the patient was able to go home pain free. She does [place] up on [place] [phone] already scheduled for 06/[address] Rousseau. Education We discussed the diagnosis and treatment plan in detail. The patient expressed understanding of thecontent. No apparent learning barriers were identified; learning preferences include listening. Signed by: Ryan iTpton M.D. 06/23/2025 11:11 AM CDT documented in this encounter Plan of Treatment Upcoming Encounters Date Type Department Care Team (Latest Contact Info) Description 06/30/2025 10:20 AM CDT Lab Department of Laboratory Medicine and Pathology, [facility], in [place] [address] [place] [address] Jessica Rousseau M.B.B.S. [address] [place] [phone] 06/30/2025 11:00 AM CDT Nurse Only [facility] in [place], [place] [address] [place] [address] Jessica Rousseau M.B.B.S. [address] [place] [phone] 06/30/2025 11:30 AM CDT Office Visit [facility] Transplantation and Clinical Regeneration in [place], [place] [address] [place] [address] Jessica Rousseau M.B.B.S. [address] [place] [phone] 06/30/2025 3:00 PM CDT Appointment Department of Radiology, [facility], in [place], [place] [address] [place] [address] Carlee Armas APRN, Satnam.N.P., D.N.P., M.S.N. [address] [place] [phone] 07/03/2025 8:00 AM CDT Telemedicine Department of Palliative Care in [place], [place] [address] [place] [address] Yary Landa D.O. [address] [place] [phone] 07/15/2025 9:00 AM CDT Telemedicine [facility] Transplantation and Clinical Regeneration in [place], [place] [address] [place] [address] Jessica Rousseau M.B.B.S. [address] [place] [address] 08/11/2025 9:00 AM CDT Nurse Only Section of Infectious Diseases in [place], [place] [address] [place] [address] Jessica Rousseau M.B.B.S. [address] [place] [phone] 08/11/2025 10:20 AM CDT Comprehensive Visit Division of Gastroenterology in [place], [place] [address] [place] [address] Jessica Rousseau M.B.B.S. 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 No, Did the patient fail other oral opioids during hospitalization? No, Does the patient have documented allergies to oxycodone and/or morphine? Yes, Is the patient on hydromorphone chronically for pain? No Given 06/22/2025 9:46 PM CDT 2 mg ketorolac injection 15 mg (ToradoL) 15 mg, intramuscular, Once, On Sun06/22/25 at 2045, For 1 dose, Adult IV push rate: Over 15 seconds. Peds IV push rate: Over 1 minute. Doses > 15 mg IV/IM are discouraged due to lack of additional analgesic benefit. Given 06/22/2025 8:28 PM CDT 15 mg Right Deltoid prochlorperazine tablet 10 mg (Compazine) 10 mg, oral, Every 6 hours PRN, nausea, vomiting, Starting on 06/22/25 at 1951, For 1 day, Oral route preferred.Indications:Leukem ia Myeloid Chronic BCR/ABL Positive Remission (HCC),Transplant Bone Marrow Allogeneic (HCC) Given 06/22/2025 7:57 PM CDT 10 mg documented in this encounter Additional Health Concerns Infection Onset Date Last Indicated Resolved Time Protective Environment 03/02/2023 03/02/2023 Assessment Noted Time PHQ-9 Depression Total Score: 2 12/10/19 25 2:46 PM CASTING AGENT documented as of this encounter Care Teams Appraiser [employer] Relationship Specialty Start Date End Date Renzo Andres M.D. [address] [place] [address] [place] [phone] PCP - General Family Medicine 04/25/23 documented as of this encounter
--- OUTSIDE RECORDS SUMMARY | 2025-06-23 08:30 | XMS_ITS | Encounter Summary ---
Author Organization [facility] Address [address] [place] [address] Care Team Providers Care Policewoman Name Role Phone Renzo Andres M.D. Primary Care Provider [phone] Reason for Visit * Outpatient (Routine) - Closed Specialty Diagnoses / Procedures Referred By Estefania t Referred To Contact Pharmacy Tessa Jesus APRN, C.N.P., D.N.P. [address] [place] [phone] Phone: tel: fax: [facility] Referral ID Status Reason Start Date Expiration Date Visits Re quested Visits Authorized [id number] Closed 05/20/2025 11/19/2026 1 1 Encounter Details Date Type Department Care Team (Latest Contact Info) Description 06/23/2025 8:30 AM CDT Office Visit Pedro sanchez [facility] for Transplantation and Clinical Regeneration in [place], [place] [address] [place] [phone] Tessa Jesus APRN, C.N.P., D.N.P. [address] [place] [phone] Nelli Parker, Pharm.D., R.Ph. [address] [place] [address] [place] [phone] Transplant Stem Cell (HCC) (Primary Dx) Discharge Disposition: Home or [...] things needed for daily living? No 06/24/2025 [facility] Utilities Answer Date Recorded In the past 12 months has [facility] electric, gas, oil, or water company threatened to shut off services in your home? No 06/24/2025 Depression Answer Date Recor ded PHQ-9 Total Score (max 27) 2 12/10 Housing Stability Answer Date Recorded What is your living situation today? I have a [facility] place to live 06/24/2025 Education Answer Date Recorded What is the highest level of school you have completed or the highest degree you have received? Some college, no degree 04/24/2019 Comments No Sex and Gender Information Value Date Recorded Sex Assigned at Female 12/26/2018 8:37 PM SHELL MACHINE OPERATOR Legal Sex Female 2:43 PM SHELL MACHINE OPERATOR Gender Identity Female 12/26/2018 8:37 PM SHELL MACHINE OPERATOR Sexual Orientation Choose not to disclose 2020 3:46 PM CDT documented as of this encounter Last Filed Vital Signs Vital Sign Reading Time Taken Comments Blood Pressure 141/92 06/23/2025 8:26 AM CDT Pulse 102 06/23/2025 8:26 AM CDT Temperature 36.5 C (97.7 F) 06/23/2025 8:26 AM CDT Respiratory Rate - - Oxygen Saturation - - Inhaled Oxygen Concentration - - Weight 102 kg (225 lb 12 oz) 06/23/2025 8:26 AM CDT Height - - Body Mass Index 34.33 06/13/2025 3:06 PM CDT documented in this encounter Progress Notes * Nelli Parker, Pharm.D., R.Ph. - 06/23/2025 8:30 AM CDT Medication Management Services ([facility]) SUBJECTIVE Radha Martinez is a 35 y.o. female, who is seen by the [facility] Pharmacist for targeted medication review. She was referred by Tessa Jesus APRN, C.N.P., D.N.P. per departmental standard of [...] 100% donor DNA. Peripheral blood sort chimerism 04/29/25 80% donor in CD3 fraction and 100% donor in CD33 fraction; BCR-ABL1 (-). Bone marrow biopsy 06/15/25 100% donor, normocellular, BCR-ABL1 (-), no features of myeloid neoplasm. 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 Mycophenolate discontinued on day+35. Tacrolimus discontinued on 04/17/25. Prednisone 60 mg daily started with concern for GI GVHD 05/28/25, EGD 06/01/25 negative for GVHD. Antifungal prophylaxis: No history of invasive fungal [...] and reconciled with the patient. She reports no longer taking pantoprazole, prednisone, stool softeners; list updated accordingly. She shared with nursecoordinator that she did take a couple of doses of ketorolac, looking at fill records it appears 10mg tablets were dispensed on 06/18/25. 2. GVHD monitoring Ms. Martinez discontinued prednisone on 06/20/25. She reports nausea and abdominal pain are her two biggest concerns currently. She is using ondansetron 4 mg three times daily and prochlorperazine 10 mg twice daily; in the past there has been discussion of trialing olanzapine or budesonide for nausea- with current mediation list, if olanzapine trialed would recommend low dosing (ex: 2.5 mg) with close monitoring. She reported that constipation has now transitioned to looser stools, not using loperamide. Her Cr is 0.91 mg/dL and LFTs of ALT 75 U/L, AST 54 U/L, Alk Phos 115 U/L she is no longer on ursodiol. Her BP was 141/92 mm Hg today on no antihypertensives. Addition: per note, plan to trial budesonide 3 mg daily. 3. Neuropathy/Pain Ms. Martinez is following with palliative for ongoing neuropathy and pain. She continues on duloxetine 120 mg daily, buprenorphine 5 mcg/hour patch. She shared that chest pain has completely resolvedsince off of the prednisone and leg pain under good control with the buprenorphine patch. She shared with nurse coordinator that she still has ketorolac, looking at fill records it appears 10 mg tablets were dispensed on 06/18/25. In discussion with provider, best to hold NSAIDs like ketorolac at this time. She will see palliative care again this week. Patient and/or caregiver(s) expressed understanding of, and [...] Current Outpatient Medications Medication Sig Dispense Refill acetaminophen (TylenoL) 325 mg tablet Take 2 tablets (650 mg total) by mouth every 4 (four) hours as needed for mild pain or score 1-3 of 10. acyclovir (Zovirax) 400 mg tablet Take 1 tablet (400 mg total) by mouth 2 (two) times a day. 60 tablet 11 alum-mag hydroxide-simeth (Maalox) 200-200-20 mg/5 mL suspension Take 30 mL by mouth every 4 (four)hours as needed for indigestion (dyspepsia). ARIPiprazole (Abilify) 10 mg tablet Take 1 tablet (10 mg total) by mouth daily. Dose change 12/02/2024 30 tablet 5 buprenorphine (Butrans) 5 mcg/hour Place 1 patch on the skin once a week Indication: Chronic Pain/Nonacute Pain. 4 patch 0 cholecalciferol (Vitamin D3) 50 mcg (2,000 Unit) tablet Take 50 mcg by mouth daily. diphenhydrAMINE (BenadryL) 25 mg capsule Take 1 capsule (25 mg total) by mouth every 6 (six) hours as needed for itching. docusate sodium (Colace) 100 mg capsule Take 1 capsule (100 mg total) by mouth 2 (two) times a day. DULoxetine (Cymbalta) [address] capsule Take 2 capsules (120 mg total) by mouth daily. 120 capsule 5 HYDROmorphone (Dilaudid) 1 mg/mL liquid Take 0.5 mL (0.5 mg total) by mouth daily as needed for pain Indication: Chronic Pain/Nonacute Pain. 10 mL 0 ibuprofen 400 mg tablet Take 1 tablet (400 mg total) by mouth every 6 (six) hours as needed for moderate pain or score 4-6 of 10. loperamide (Imodium A-D) 2 mg capsule Take [...] 0 predniSONE (Deltasone) 10 mg tablet Take 3 tablets (30 mg total) by mouth daily for 4 days, THEN 2 tablets (20 mg total) daily for 3 days, THEN 1 tablet (10 mg total) daily for 3 days. 21 tablet 0 prochlorperazine (Compazine) 10 mg tablet Take 1 tablet (10 mg total) by mouth every 6 (six) hours as needed for nausea. 30 tablet 1 sennosides-docusate sodium (Senokot-S) 8.6-50 mg per tablet Take 1 tablet by mouth 2 (two) times a day as needed for constipation. sulfamethoxazole-trimethoprim (Bactrim) 400-80 mg per tablet Take 1 tablet by mouth daily. 60 tablet 1 No current facility-administered medications for this visit. [3] Family History Problem Relation Name Age of Onset Hypertension Mother gabrielle martinez Depression Mother gabrielle martinez Anxiety disorder Mother gabrielle martinez Cystic fibrosis Brother No Known Problems Son Rashid Depression Brother shena martinez Anxiety disorder Brother [facility] Maternal Grandmother nancy Breast cancer Maternal Grandmother nancy Psychiatric Maternal Grandfather silvia [facility] Skin cancer Paternal Grandfather Berkley vega [4] Past Medical History: Diagnosis Date Amblyopia Bilateral Anemia Anxiety Generalized Disorder Depressive Disorder Fibromyalgia 2020 Headache Unspecified Irritable Bowel Syndrome, Unspecified 2016 Leukemia Migraine Headache Other Injury Of Unspecified Body Region Strabismus [5] Social History Tobacco Use Smoking status: Never Smokeless tobacco: Never Vaping Use Vaping status: never used Substance Use Topics Alcohol use: Not Currently Drug use: Never [6] Past Surgical History: Procedure Laterality Date EYE SURGERY Right 1989 INSERTION CENTRAL VENOUS LINE N/A 12/03/2024 Procedure: INSERTION CENTRAL VENOUS LINE, [place]; Surgeon: Brianna Hernandez M.D., Ph.D.; Location: [facility] RO OR [7] Patient Active Problem List Diagnosis Leukemia Myeloid Chronic BCR/ABL Positive Not Having Achieved Remission (HCC) Chronic Migraine Dizziness Depression Major Recurrent Moderate (HCC) Anxiety Generalized Disorder 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 [address] [place] [phone] 06/30/2025 11:00 AM CDT [facility] Only [facility] in [place], [place] [address] [place] [phone] Jessica Rousseau M.B.B.S. [address] [place] [phone] 06/30/2025 11:30 AM CDT [facility] in [place], [place] [address] [place] [phone] Jessica Rousseau M.B.B.S. [address] [place] [phone] 06/30/2025 3:00 PM CDT Appointment Department of Radiology, [facility], in [place], [place] [address] [place] [address] Carlee Armas APRN, Satnam.N.P., D.N.P., M.S.N. [address] [place] [phone] 07/03/2025 8:00 AM CDT Telemedicine Department of Palliative Care in [place], [place] [address] [place] [phone] Yary Landa D.O. [address] [place] [phone] 07/15/2025 9:00 AM CDT Telemedicine Pedro Aravind sanchez [facility] for Transplantation and Clinical Regeneration in [place], [place] [address] [place] [phone] Jessica Rousseau M.B.B.S. [address] [place] [phone] 08/11/2025 9:00 AM CDT Nurse Only Section of Infectious Diseases in [address] [phone] Jessica Rousseau M.B.B.S. [address] [place] [phone] 08/11/2025 10:20 AM CDT Comprehensive Visit Division of Gastroenterology in [place], [place] [address] [place] [phone] Jessica Rousseau M.B.B.S. [address] [place] [phone] documented as of this encounter Visit Diagnoses Diagnosis Transplant Stem Cell (HCC)- Primary documented in this encounter Additional Health Concerns Infection Onset Date Last Indicated Resolved Time Protective Environment 03/02/2023 03/02/2023 Assessment Noted Time PHQ-9 Depression Total Score: 2 12/10/19 25 2:46 PM SHELL MACHINE OPERATOR documented as of this encounter Care Teams Policewoman Relationship Specialty Start Date End Date Renzo Andres M.D. [address] [place] [phone] PCP - General Family Medicine 04/25/23 documented as of this encounter
--- OUTSIDE RECORDS SUMMARY | 2025-06-23 09:00 | XMS_ITS | Encounter Summary ---
Author Organization [facility] Address [address] [place] [address] Care Team Providers Care Transfer Pumper Name Role Phone Renzo Andres M.D. Primary Care Provider Encounter Details Date Type Department Care Team (Late st Contact Info) Description 06/23/2025 9:00 AM CDT Patient [facility] in [place], [place] [address] [place] [address] Carolyn Crowell Social History Tobacco Use Types [...] things needed for daily living? No 06/24/2025 [facility] Utilities Answer Date Recorded In the past 12 months has th e electric, gas, oil, or water company threatened to shut off services in your home? No 06/24/2025 Depression Answer Date Recor ded PHQ-9 Total Score (max 27) 2 12/10 Housing Stability Answer Date Recorded What is your living situation today? I have a [facility] place to live 06/24/2025 Education Answer Date Recorded What is the highest level of school you have completed or the highest degree you have received? Some college, no degree 04/24/2019 Comments No Sex and Gender Information Value Date Recorded Sex Assigned at Female 12/26/2018 8:37 PM TELEPHONE ASSEMBLER Legal Sex Female 2:43 PM TELEPHONE ASSEMBLER Gender Identity Female 12/26/2018 8:37 PM TELEPHONE ASSEMBLER Sexual Orientation Choose not to disclose 2020 3:46 PM CDT documented as of this encounter Plan of Treatment Upcoming Encounters Date Type Department Care Team (Latest Contact Info) Description 06/30/2025 10:20 AM CDT Lab Department of Laboratory Medicine and Pathology, [facility], in [place], [place] [address] [place] [phone] Jessica Rousseau M.B.B.S. [address] [place] [phone] 06/30/2025 11:00 AM CDT Nurse Only Pedro [facility] for Transplantation and Clinical Regeneration in [place], [place] [address] [place] [phone] Jessica Rousseau M.B.B.S. [address] [place] [phone] 06/30/2025 11:30 AM CDT Office Visit [facility] for Transplantation and Clinical Regeneration in [place], [place] [address] [place] [address] Jessica Rousseau M.B.B.S. [address] [place] [phone] 06/30/2025 3:00 PM CDT Appointment Department of Radiology, [facility], in [place], [place] [address] [place] [address] Carlee Armas APRN, C.N.P., D.N.P., M.S.N. [address] [place] [phone] 07/03/2025 8:00 AM CDT Telemedicine Department of Palliative Care in [place], [place] [address] [place] [address] Yary Landa D.O. [address] [place] [phone] 07/15/2025 9:00 AM CDT Telemedicine [facility] Transplantation and Clinical Regeneration in [place], [place] [address] [place] [phone] Jessica Rousseau M.B.B.S. [address] [place] [phone] 08/11/2025 9:00 AM CDT Nurse Only Section of Infectious Diseases in [place], [place] [address] [place] [address] Jessica Rousseau M.B.B.S. [address] [place] [address] 08/11/2025 10:20 AM CDT Comprehensive Visit Division of Gastroenterology in [place], [place] [address] [place] [address] Jessica Rousseau M.B.B.S. [address] [place] [phone] documented as of this encounter Visit Diagnoses Not on filedocumented in this encounter Additional Health Concerns Infection Onset Date Last Indicated Resolved Time Protective Environment 03/02/2023 03/02/2023 Assessment Noted Time PHQ-9 Depression Total Score: 2 12/10/19 25 2:46 PM TELEPHONE ASSEMBLER documented as of this encounter Care Teams Transfer Pumper Relationship Specialty Start Date End Date Renzo Andres M.D. [address] [place] [phone] PCP - General Family Medicine 04/25/23 documented as of this encounter
--- OUTSIDE RECORDS SUMMARY | 2025-06-23 10:00 | XMS_ITS | Encounter Summary ---
Author Organization [facility] Address [address] [place] [address] Care Team Providers Care Email Operations Manager Name Role Phone Renzo Andres M.D. Primary Care Provider [phone] Reason for Referral * Transplant (Routine) - Authorized Specialty Diagnoses / Procedures Referred By Contac t Referred To Contact Transplant Jessica Rousseau M.B.B.S. [address] [place] [phone] Phone: tel: fax: [facility] Referral ID Status Reason Start Date Expiration Date V isits Requested Visits Authorized [id number] Authorized 06/23/2025 12/23/2026 1 1 Scheduling Instructions Please schedule with BMT MD for 30 minutes. Patient type: Allo Over 100 Visit Type: Return Scheduling Preferences Option 1: MD/RN no joint visit Option 2: MD/RN no joint visit Other Scheduling Instructions:please schedule with DR Rousseau next week when she is avail Primary MD:DR Rousseau RN Team: Rst Bmt Team [place] * Transplant (Routine) - Authorized Specialty Diagnoses / Procedures Referred By Contac t Referred To Contact Transplant Jessica Rousseau M.B.B.S. [address] [place] [phone] Phone: tel: fax: [facility] Referral ID Status Reason Start Date Expiration Date V isits Requested Visits Authorized [id number] Authorized 06/23/2025 12/23/2026 1 1 Scheduling Instructions Please schedule with RNCC for 30 min Patient type: Allo Over 100 Visit Type: Return Scheduling Preferences Option 1: MD/RN no joint visit Option 2: MD/RN no joint visit Other Scheduling Instructions:please schedule with DR Rousseau next week when she is avail Primary MD:DR Rousseau RN Team: Rst Bmt Team [place] * Medication Prior Authorization - Closed Specialty Diagnoses / Procedures Referred By Contac t Referred To Contact Diagnoses Transplant Bone Marrow Allogeneic (HCC) Jessica Rousseau M.B.B.S. [address] [place] [phone] Phone: tel: fax: Referral ID Status Reason Start Date Expiration Date Visits Re quested Visits Authorized [id number] Closed 1 1 Reason for Visit * Transplant (Routine) - Closed Specialty Diagnoses / Procedures Referred By Contac t Referred To Contact Transplant Tessa Jesus APRN, C.N.P., D.N.P. [address] [place] [phone] Phone: tel: fax: [facility] Referral ID Status Reason Start Date Expiration Date Visits Re quested Visits Authorized [id number] Closed 05/20/2025 11/19/2026 1 1 Encounter Details Date Type Department Care Team (Latest Contact Info) Description 06/23/2025 10:00 AM CDT [facility] in [place], [place] 200 [place] [phone] Jessica Rousseau M.B.B.S. [address] [place] [address] Transplant Bone Marrow Allogeneic (HCC) (Primary Dx); [...] for daily living? No 06/24/2025 [facility] Utilities Answer Date Recorded In the [...] Sex Assigned at Female 12/26/2018 8:37 PM CAR PARK ATTENDANT Legal Sex Female 2:43 PM CAR PARK ATTENDANT Gender Identity Female 12/26/2018 8:37 PM CAR PARK ATTENDANT Sexual Orientation Choose not to disclose 2020 3:46 PM CDT documented as of this encounter Progress Notes * Jessica Rousseau M.B.B.S. - 06/23/2025 10:00 AM CDT SUBJECTIVE TRANSPLANT PHYSICIAN Dr. Jessica Rousseau, pager [phone]. HISTORY OF PRESENT ILLNESS Radha Martinez is a 35 y.o. female with a past medical history significant for CML who received a MUD HCT on 12/10/24. She is at [facility] today for the follow up. Day + 196 HISTORY OF PRESENT ILLNESS Please refer to multiple prior notes in EMR for complete hematologic history: Ms. Martinez is a 35 y.o. 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 At the time of diagnosis, there was grade 3 reticulin fibrosis noted. The cytogenetics identified a Geraldine chromosome in 20 metaphases. The BCR-ABL1 P [...] t(9;22) metaphases. NGS is positive for ASXL1 p.[id number]*12 (20%) and p.Rgx730* (3%). 06/17/2024: feeling quite symptomatic since the [...] prophylaxis: Ursodiol 600 mg two times daily. [facility]: [id number] [...] donor DNA and approximately 40% recipient DNA. [id number]% donor DNA and approximately 0% recipient DNA. [...] had just started 40 mg daily today [id number]) - monitor if chest pressure improves (this [...] by [facility] in [place], [place]. - Patient will notify team if [...] and was advised admission to the BMT [facility] service for further management of her [...] to a time when she comes to [place] and her ct angio was canceled. Lab [...] Lab Department of Laboratory Medicine and Pathology, [place], in [place], [place] [address] [place] [phone] Jessica Rousseau M.B.B.S. [address] [place] [phone] 06/30/2025 11:00 AM CDT Nurse Only Pedro Lanza [facility] in [place], [place] [address] [place] [phone] Jessica Rousseau M.B.B.S. [address] [place] [phone] 06/30/2025 11:30 AM CDT [facility] in [place], [place] [address] [place] [phone] Jessica Rousseau M.B.B.S. [address] [place] [phone] 06/30/2025 3:00 PM CDT Appointment Department of Radiology, [facility], in [place], [place] [address] [place] [phone] Carlee Armas APRN, Satnam.N.P., D.N.P., M.S.N. [address] [place] [phone] 07/03/2025 8:00 AM CDT Telemedicine Department of Palliative Care in [place], [place] [address] [place] [phone] Yary Landa D.O. [address] [place] [phone] 07/15/2025 9:00 AM CDT Telemedicine [facility] Transplantation and Clinical Regeneration in [place], [place] [address] [place] [phone] Jessica Rousseau M.B.B.S. [address] [place] [phone] 08/11/2025 9:00 AM CDT Nurse Only Section of Infectious Diseases in [place], [place] [address] [place] [address] Jessica Rousseau M.B.B.S. [address] [place] [phone] 08/11/2025 10:20 AM CDT Comprehensive Visit Division of Gastroenterology in [place], [place] [address] [place] [address] Jessica Rousseau M.B.B.S. [address] [place] [phone] Scheduled Orders Name Type Priority Associated Diagnoses Orde r Schedule Albumin Lab Routine 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) Anxiety Generalized Disorder Fatigue Chronic Expected: 06/30/2025 (Approximate), Expires: 09/28/2025 Alkaline Phosphatase Lab Routine 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) Anxiety Generalized Disorder Fatigue Chronic Expected: 06/30/2025 (Approximate), Expires: 09/28/2025 ALT (Alanine Aminotransferase) Lab Routine 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) Anxiety Generalized Disorder Fatigue Chronic Expected: 06/30/2025 (Approximate), Expires: 09/28/2025 AST (Aspartate Aminotransferase) Lab Routine 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) Anxiety Generalized Disorder Fatigue Chronic Expected: 06/30/2025 (Approximate), Expires: 09/28/2025 Bilirubin, Total Lab Routine 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) Anxiety Generalized Disorder Fatigue Chronic Expected: 06/30/2025 (Approximate), Expires: 09/28/2025 BUN (Blood Urea Nitrogen) Lab Routine 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) Anxiety Generalized Disorder Fatigue Chronic Expected: 06/30/2025 (Approximate), Expires: 09/28/2025 Calcium, Total Lab Routine 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) Anxiety Generalized Disorder Fatigue Chronic Expected: 06/30/2025 (Approximate), Expires: 09/28/2025 CBC no call back, reflex T/S HGB <8 Lab Routine 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) Anxiety Generalized Disorder Fatigue Chronic Expected: 06/30/2025 (Approximate), Expires: 09/28/2025 Creatinine with Estimated GFR Lab Routine 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) Anxiety Generalized Disorder Fatigue Chronic Expected: 06/30/2025 (Approximate), Expires: 09/28/2025 Glucose, Fasting Lab Routine 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) Anxiety Generalized Disorder Fatigue Chronic Expected: 06/30/2025 (Approximate), Expires: 09/28/2025 Magnesium Lab Routine 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) Anxiety Generalized Disorder Fatigue Chronic Expected: 06/30/2025 (Approximate), Expires: 09/28/2025 Potassium Lab Routine 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) Anxiety Generalized Disorder Fatigue Chronic Expected: 06/30/2025 (Approximate), Expires: 09/28/2025 Sodium Lab Routine 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) Anxiety Generalized Disorder Fatigue Chronic Expected: 06/30/2025 (Approximate), Expires: 09/28/2025 LD (Lactate Dehydrogenase) Lab Routine 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) Anxiety Generalized Disorder Fatigue Chronic Expected: 06/30/2025 (Approximate), Expires: 09/28/2025 Scheduled Referrals Name Type Priority Associated Diagnoses Order Schedule Transplant Bone marrow office visit (clinic) Outpatient Referral Routine Expected: 06/30/2025 (Approximate), Expires: 09/28/2025 Transplant Bone marrow office visit (clinic) Outpatient Referral Routine Expected: 06/30/2025 (Approximate), Expires: 09/28/2025 documented as of this encounter Visit Diagnoses Diagnosis 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 [address] [place] [phone] PCP - General Family Medicine 04/25/23 documented as of this encounter
--- OUTSIDE RECORDS SUMMARY | 2025-06-24 12:30 | XMS_ITS | Encounter Summary ---
Author Organization [facility] Address [address] [place] [address] Care Team Providers Care Supervisor Television Chassis Repair Name Role Phone Renzo Andres M.D. Primary Care Provider [phone] Reason for Visit * Reason Onset Date Comments Pre-visit Intake 06/24/2025 Encounter Details Date Type Department Care Team (Latest Contact Info) Description 06/24/2025 12:30 PM CDT Clinical Communication Virtual Review in [place], [place] 200 [place] [address] Pre-visit Intake Social History Tobacco Use Types [...] things needed for daily living? No 06/24/2025 [facility] Utilities Answer Date Recorded In the past 12 months has th e electric, gas, oil, or water company threatened to shut off services in your home? No 06/24/2025 Depression Answer Date Recor ded PHQ-9 Total Score (max 27) 2 12/10 Housing Stability Answer Date Recorded What is your living situation today? I have a [facility] place to live 06/24/2025 Education Answer Date Recorded What is the highest level of school you have completed or the highest degree you have received? Some college, no degree 04/24/2019 Comments No Sex and Gender Information Value Date Recorded Sex Assigned at Female 12/26/2018 8:37 PM SUCTION PLATE ROLLER HAND Legal Sex Female 2:43 PM SUCTION PLATE ROLLER HAND Gender Identity Female 12/26/2018 8:37 PM SUCTION PLATE ROLLER HAND Sexual Orientation Choose not to disclose 2020 3:46 PM CDT documented as of this encounter Plan of Treatment Upcoming Encounters Date Type Department Care Team (Latest Contact Info) Description 06/30/2025 10:20 AM CDT Lab Department of Laboratory Medicine and Pathology, [facility], in [place], [place] 200 [place] [phone] Jessica Rousseau M.B.B.S. 200 [place] [phone] 06/30/2025 11:00 AM CDT Nurse Only Pedro Fatima [facility] for Transplantation and Clinical Regeneration in [place], [place] [address] [place] [phone] Jessica Rousseau M.B.B.S. [address] [place] [phone] 06/30/2025 11:30 AM CDT [facility] in [place], [place] [address] [place] [phone] Jessica Rousseau M.B.B.S. [address] [place] [phone] 06/30/2025 3:00 PM CDT Appointment Department of Radiology, [facility], in [place], [place] [address] [place] [phone] Carlee Armas APRN, C.N.P., D.N.P., M.S.N. [address] [place] [phone] 07/03/2025 8:00 AM CDT Telemedicine Department of Palliative Care in [place], [place] [address] [place] [phone] Yary Landa D.O. [address] [place] [phone] 07/15/2025 9:00 AM CDT Telemedicine [facility] Transplantation and Clinical Regeneration in [place], [place] [address] [place] [phone] Jessica Rousseau M.B.B.S. [address] [place] [phone] 08/11/2025 9:00 AM CDT Nurse Only Section of Infectious Diseases in [place], [place] [address] [place] [phone] Jessica Rousseau M.B.B.S. [address] [place] [phone] 08/11/2025 10:20 AM CDT Comprehensive Visit Division of Gastroenterology in [place], [place] [address] [place] [address] Jessica Rousseau M.B.B.S. [address] [place] [phone] documented as of this encounter Visit Diagnoses Not on filedocumented in this encounter Additional Health Concerns Infection Onset Date Last Indicated Resolved Time Protective Environment 03/02/2023 03/02/2023 Assessment Noted Time PHQ-9 Depression Total Score: 2 12/10/19 25 2:46 PM SUCTION PLATE ROLLER HAND documented as of this encounter Care Teams Supervisor Television Chassis Repair Relationship Specialty Start Date End Date Renzo Andres M.D. [address] [place] [phone] PCP - General Family Medicine 04/25/23 documented as of this encounter
--- OUTSIDE RECORDS SUMMARY | 2025-06-24 14:59 | XMS_ITS | Encounter Summary ---
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 Date of : 1990 Age: 35 Procedure Date: 06/26/2025 Procedure: Flexible Sigmoidoscopy Providers: Tamara Rashid MD Referring Provider: Mckenzie Melvin Pre-op Diagnoses: Abdominal pain, Exclusion of svtun-jaorzl-jcvv disease, Diarrhea Recommendation: - Return patient to [...] 0 Note Initiated On: 06/26/2025 10:17 AM Carlee Armas APRN, C.N.P., D.N.P., M.S.N. GI PROCEDURE ORDERABLES Final Result [facility] NA * Upper GI Endoscopy (06/26/2025 10:17 AM CDT) 06/26/2025 10:1 7 AM CDT Impressions [facility] - 06/26/2025 11:54 AM CDT Post-op Diagnoses: [...] out GVHD and CMV as requested. Narrative [facility] - 06/26/2025 11:54 AM CDT Gonda 2 GI Patient Name: Radha Martinez Date of : 1990 Age: 35 Procedure Date: 06/26/2025 Procedure: Upper GI endoscopy Providers: Tamara Rashid MD Referring Provider: Mckenzie Melvin Pre-op Diagnoses: Exclusion of ngwke-hkzfww-ircp disease, Diarrhea, Nausea with vomiting Recommendation: - [...] D.N.P. GI PROCEDU RE ORDERABLES Final Result [facility] NA * Prothrombin Time (PT) (06/26/2025 5:24 AM CDT) Prothrombin Time, P 10.7 9.4 - 12.5 sec 06/26/2025 5:49 AM CDT DTL INR 1.0 0.9 - 1.1 06/26/2025 5:49 AM CDT DTL Comment: ----ADDITIONAL INFORMATION---- Standard intensity warfarin therapeutic range: 2.0 to 3.0 High intensity warfarin therapeutic range: 2.5 to 3.5 Blood (Blood, Venous) 06/26/2025 5:24 AM CDT 06/26/2025 5:34 AM CDT us Racquel Candelario APRN C.N.PKatalina LAB BLOOD ADD-ON Fin al Result [facility] [address] [place] [address], [facility] [address] [place] [address] * (ABNORMAL) CBC no call back, reflex T/S HGB <8 (06/26/2025 5:24 AM CDT) Pathologist [facility] Hemoglobin 11.1(L) 11.6 - 15.0 g/dL 06/26/2025 [...] C.N.P. LAB BLOOD NON ADD-ON Final Result [facility] [address] [place] [address], [facility] DTL [facility] [address] [place] [address] * (ABNORMAL) Comprehensive Metabolic Panel (06/26/2025 5:24 [...] 06/26/2025 5:33 AM CDT us Racquel Candelario APRN C.N.P. LAB BLOOD ADD-ON Fin al Result [facility] [address] [place] [address], [facility] [address] [place] [address] * US Pelvis Transvaginal and Transabdominal (06/25/2025 [...] None. Findings discussed with Aditi Candelario APRN, RES HABILITATION ASSISTANT pager ([phone]) by Dr. Mcelroy 06/25/2025 at 2:09 PM. Procedure Note Marta Mcelroy M.D. - 06/25/2025 EXAM: US PELVIS TRANSVAGINAL AND TRANSABDOMINAL HISTORY: 35-year-old female with suprapubic/lower quadrant discomfort [id number]. COMPARISON: CT abdomen and pelvis 06/24/2025 TECHNIQUE: [...] None. Findings discussed with Aditi Candelario APRN, RES HABILITATION ASSISTANT pager ([phone]) by Dr. Mcelroy06/25/2025 at 2:09 PM. IMPRESSION: [...] per leftventricular function protocol. Last full echocardiogram [id number]/18/2024. LEFT VENTRICLE:Normal left ventricular chamber size. Abnormal [...] Mckenzie Melvin APRN, C.N.P., D.N.P. CV ECHO AK OCEDURES Final Result * hCG (Human Chorionic Gonadotropin), Quantitative, (06/25/2025 12:35 AM CDT) HCG, Quantitative, , S <0.5 <5 IU/L 06/25/2025 9:57 AM CDT DTL Blood (Blood, Venous) 06/25/2025 12:35 AM CDT 06/25/2025 8:35 AM CDT Racquel Candelario APRN, C.N.P. LAB BLOOD ADD-ON Fin al Result [facility] [address] [place] [address], [facility] [address] [place] [address] * Chimerism Transplant Sorted Cells (06/25/2025 12:35 AM CDT) Specimen Type Peripheral blood 06/29 4:34 PM CDT DTL Interpretation Peripheral blood, chimerism analysis: CD3-positive T-cells: The CD3-positive fraction contains approximately 90% donor DNA and approximately 10% recipient DNA. GJ04-bwqdwrsl myeloid cells: The PN48-tyfnoukn fraction contains approximately 100% donor DNA and approximately 0% recipient DNA. 3 informative loci were used in the analysis of this sample. Signing Pathologist: Sahara Rangan M.B.B.S. The pre-analytical cell sorting was performed on a research basis only. The analytical sensitivity of this assay is approximately 5% in a posttransplant specimen (donor and recipient DNA mixed chimerism). T-cells and myeloid cells were enriched to a purity of 95% or greater. Markers analyzed: [id number], [id number], FGA, SE33, vWA, D21S11, [id number], [id number], E02P325, D18S51, I1P625, O9L9063, CSF1PO, F0J763, B06N562, I33D714, TPOX, I22U629, U9M797 and [id number] 06/29/2025 4:34 PM CDT DTL Comment: ----ADDITIONAL INFORMATION---- Method summary - Chimerism: Genomic DNA was extracted and the specimen evaluated for the percentages of donor and recipient DNA using a PCR-based method that amplifies several highly polymorphic short tandem repeats (see [facility] Interpretive Handbook for method details). This test was developed and its performance characteristics determined by [facility] in a manner consistent with CLIA requirements. This test has not been cleared or approved by the U.S. Food and Drug Administration. Blood (Blood, Peripheral Draw) 06/25/2025 12:35 AM CDT 06/25/2025 6:57 AM CDT Mckenzie Melvin APRN C.N.P., D.N.P. LAB GENETI C TESTING Final Result [facility] [place] [address] [place] [address], [facility] DT [address] [place] [address] * Phosphorus Inorganic (06/25/2025 12:35 AM CDT) [facility] Phosphorus (Inorganic), S 4.1 2.5 - 4.5 mg/dL 06/25/2025 1:31 AM CDT DTL Blood (Blood, Venous) 06/25/2025 12:35 AM CDT 06/25/2025 12:58 AM CDT Satnam Scruggs APRN.N.P., D.N.P. LAB BLOOD ADD-ON Final Result Performing Organization Address [facility] Co de Phone Number [facility] [address] [place] [address], [place] [address] * Magnesium (06/25/2025 12:35 AM CDT) Magnesium, S 2.3 1.7 - 2.3 mg/dL 06/25/2025 1:31 AM CDT DTL Blood (Blood, Venous) 06/25/2025 12:35 AM CDT 06/25/2025 12:58 AM CDT Satnam Scruggs APRN.N.P., D.N.P. LAB BLOOD ADD-ON Final Result Performing Organization Address [facility] de Phone Number [facility] [address] [place] [address], [place] [address] * (ABNORMAL) Comprehensive Metabolic Panel (06/25/2025 12:35 [...] C.N.P., D.N.P. LAB BLOOD ADD-ON Final Result [facility] [address] [place] [address], [facility] [address] [place] [address] * (ABNORMAL) CBC with Differential, Blood (06/25/2025 [...] C.N.P., D.N.P. LAB BLOOD ADD-ON Final Result [facility] [address] [place] [address], [place] DTL [facility] [address] [place] [address] DHPM [facility] [address] [place] [address] * CT Chest with IV Contrast (06/24/2025 [...] groundglass opacities from 06/05/2025 have resolved. Mckenzie Cunningham Olegario BRANTLEY, C.N.P., D.N.P. IMG CT PRO CEDURES Final Result * CT [...] have resolved. Mckenzie Melvin APRN, C.N.P., D.N.P. IMG CT PRO CEDURES Final [...] hours, First dose (after last modification) on 06/25/25 at 1700, Pre home regimen See [...] Given 06/26/2025 7:18 AM CDT 40 mg [id number] vgo-MiPn-NTo-asb-C kit 1,000 mL (MoviPrep) 1,000 mL, oral, [...] Given 06/25/2025 8:35 PM CDT 1,000 mL [id number] ajt-CgNc-UJa-asb-C kit 1,000 mL (MoviPrep) 1,000 mL, oral, [...] Rivas) 0859 (Given - Provider: Tara Summers R.Niko.)210 (Given - Provider: Caryn Salazar R.N.) 0833 (Given - Provider: Grisel Heath RKatalinaNKatalina) [...] Tara Summers R.N. - Reason: See Provider Order)2099 (Unheld by provider - Provider: Mckenzie Melvin [...] Rivas) 210 (Given - Provider: Caryn Salazar RKatalinaNKatalina) pantoprazole DR tablet 40 mg (Protonix) 40 mg, oral, 2 times daily before morning and evening meals, First dose on Sun06/24/25 at 1745, Swallow whole. Do NOT crush, chew, or split tablet. 0601 (Given - Provider: Rosy Bhagat, R.NKatalina)1606 (Given - Provider: Tara K Summers, R.N.) 0718 (Given - Provider: Tara Summers R.N. - Comment: Pt NPO for procedure)1638 (Given - Provider: Seferino Tamayo R.N.) 0648 (Given - Provider: Caryn Salazar R.N.) [id number] vql-LqKm-FXn-asb-C kit 1,000 mL (MoviPrep) (COMPLETED)(Linked Group 1) [...] dose. 2034 (Given - Provider: Jaclyn Robertson R.N.) [id number] lgs-SjDd-UAt-asb-C kit 1,000 mL (MoviPrep) (COMPLETED)(Linked Group 1) [...] medical 0801 (Given - Provider: Tara Summers R.N.)2019 (Given - Provider: Carmen Rivas) 0859 (Given [...] diarrhea)2115 (Not Given - Provider: Caryn Salazar RKatalinaNKatalina - Reason: Order parameters not met - [...] (only) 1201 (Given - Provider: Renita العراقي R.N.) HYDROmorphone tablet 2 mg (Dilaudid) 2 mg, [...] Pain 0756 (Given - Provider: Tara Summers RKatalinaNKatalina)1326 (Given - Provider: Mariana hCarles RKatalinaN.) 0532 (Given - Provider: Carmen Rivas)2104 (Given - Provider: Caryn Salazar R.N.) 0211 (Given - Provider: Caryn Salazar R.N.) hydrOXYzine tablet 25 mg (Atarax) 25 mg, oral, Every 6 hours PRN, anxiety, Starting on Tigist 06/25/25 at 1513 0211 (Given - Provider: Vickie JamesN.) ibuprofen tablet 400 mg 400 mg, oral, Every 6 hours PRN, moderate pain or score 4-6 of 10, Starting on Sun06/24/25 at 1503, Take with food or milk if GI disturbances occur with use. 0744 (Given - Provider: Tara Summers RKatalinaN.) loperamide capsule 2 mg (Imodium A-D) 2 [...] Rivas) 0015 (Given - Provider: Caryn Salazar RKatalinaNKatalina) naloxone injection 0.4 mg (Narcan) 0.4 mg, [...] % injection Linked Groups Order Group 1: [id number] qrr-LtYr-SOv-asb-C kit 1,000 mL (MoviPrep) (COMPLETED)Jump to med 1,000 mL, oral, Once, On Tigist 06/25/25 at 2000, For 1 dose, Split-dose regimen: [...] use for the second dose. 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 [address] [place] [id number] PCP - General Family Medicine 04/25/23 documented as of this encounter
--- OUTSIDE RECORDS SUMMARY | 2025-06-26 10:20 | XMS_ITS | Encounter Summary ---
Author Organization [facility] Address [address] [place] [address] Care Team Providers Care Search Manager Name Role Phone Renzo Andres M.D. Primary Care Provider [phone] Encounter Details Date Type Department Care Team (Latest Contact Info) Description 06/26/2025 10:20 AM CDT Ancillary Procedure Department of Gastroenterology Arrived Social History Tobacco Use Types Packs/Day Years [...] things needed for daily living? No 06/24/2025 [facility] Utilities Answer Date Recorded In the past 12 months has th [employer] electric, gas, oil, or water company threatened to shut off services in your home? No 06/24/2025 Depression Answer Date Recor ded PHQ-9 Total Score (max 27) 2 12/10 Housing Stability Answer Date Recorded What is your living situation today? I have a [facility] place to live 06/24/2025 Education Answer Date Recorded What is the highest level of school you have completed or the highest degree you have received? Some college, no degree 04/24/2019 Comments No Sex and Gender Information Value Date Recorded Sex Assigned at Female 12/26/2018 8:37 PM TRANSITION MGR Legal Sex Female 2:43 PM TRANSITION MGR Gender Identity Female 12/26/2018 8:37 PM TRANSITION MGR Sexual Orientation Choose not to disclose 2020 3:46 PM CDT documented as of this encounter Plan of Treatment Upcoming Encounters Date Type Department Care Team (Latest Contact Info) Description 06/30/2025 10:20 AM CDT Lab Department of Laboratory Medicine and Pathology, [facility] in [place], [place] [address] [place] [phone] Jessica Rousseau M.B.B.S. [address] [place] [phone] 06/30/2025 11:00 AM CDT Nurse Only Pedro Fatima [place] for Transplantation [facility] Clinical Regeneration in [place], [place] [address] [place] [phone] Jessica Rousseau M.B.B.S. [address] [place] [phone] 06/30/2025 11:30 AM CDT [facility] in [place], [place] [address] [place] [address] Jessica Rousseau M.B.B.S. [address] [place] [phone] 06/30/2025 3:00 PM CDT Appointment Department of Radiology, [facility], in [place], [place] [address] [place] [phone] Carlee Armas APRN, C.N.P., D.N.P., M.S.N. [address] [place] [phone] 07/03/2025 8:00 AM CDT Telemedicine Department of Palliative Care in [place], [place] [address] [place] [phone] Yary Landa D.O. [address] [place] [phone] 07/15/2025 9:00 AM CDT Telemedicine [facility] Transplantation and Clinical Regeneration in [place], [place] [address] [place] [phone] Jessica Rousseau M.B.B.S. [address] [place] [phone] 08/11/2025 9:00 AM CDT Nurse Only Section of Infectious Diseases in [place], [place] [address] [place] [phone] Jessica Rousseau M.B.B.S. [address] [place] [phone] 08/11/2025 10:20 AM CDT Comprehensive Visit Division of Gastroenterology in [place], [place] [address] [place] [address] Jessica Rousseau M.B.B.S. [address] [place] [phone] documented as of this encounter Procedures Procedure [...] Total Score: 2 12/10/19 25 2:46 PM TRANSITION MGR documented as of this encounter Care Teams Search Manager Relationship Specialty Start Date End Date Renzo Andres M.D. [address] [place] [phone] PCP - General Family Medicine 04/25/23 documented as of this encounter
--- OUTSIDE RECORDS SUMMARY | 2025-06-26 10:25 | XMS_ITS | Encounter Summary ---
Author Organization [facility] Address [address] [place] [address] Care Team Providers Care Service Electrician Name Role Phone Renzo Andres M.D. Primary [...] things needed for daily living? No 06/24/2025 [facility] Utilities Answer Date Recorded In the past 12 months has th [employer] electric, gas, oil, or water company threatened to shut off services in your home? No 06/24/2025 Depression Answer Date Recor ded PHQ-9 Total Score (max 27) 2 12/10 Housing Stability Answer Date Recorded What is your living situation today? I have a [facility] place to live 06/24/2025 Education Answer Date Recorded What is the highest level of school you have completed or the highest degree you have received? Some college, no degree 04/24/2019 Comments No Sex and Gender Information Value Date Recorded Sex Assigned at Female 12/26/2018 8:37 PM WIRE COILER MACHINE OPERATOR Legal Sex Female 2:43 PM WIRE COILER MACHINE OPERATOR Gender Identity Female 12/26/2018 8:37 PM WIRE COILER MACHINE OPERATOR Sexual Orientation Choose not to disclose 2020 3:46 PM CDT documented as of this encounter Plan of Treatment Upcoming Encounters Date Type Department Care Team (Latest Contact Info) Description 06/30/2025 10:20 AM CDT Lab Department of Laboratory Medicine and Pathology, [facility] in [place], [place] [address] [place] [phone] Jessica Rousseau M.B.B.S. [address] [place] [phone] 06/30/2025 11:00 AM CDT Nurse Only Pedro Fatima [place] for Transplantation and Clinical Regeneration in [place], [place] [address] [place] [phone] Jessica Rousseau M.B.B.S. [address] [place] [phone] 06/30/2025 11:30 AM CDT [facility] in [place], [place] [address] [place] [address] Jessica Rousseau M.B.B.S. [address] [place] [phone] 06/30/2025 3:00 PM CDT Appointment Department of Radiology, [facility], in [place], [place] [address] [place] [phone] Carlee Armas APRN, C.N.P., D.N.P., M.S.N. [address] [place] [phone] 07/03/2025 8:00 AM CDT Telemedicine Department of Palliative Care in [place], [place] [address] [place] [phone] Yary Landa D.O. [address] [place] [phone] 07/15/2025 9:00 AM CDT Telemedicine [facility] Transplantation and Clinical Regeneration in [place], [place] [address] [place] [phone] Jessica Rousseau M.B.B.S. [address] [place] [phone] 08/11/2025 9:00 AM CDT Nurse Only Section of Infectious Diseases in [place], [place] [address] [place] [phone] Jessica Rousseau M.B.B.S. [address] [place] [phone] 08/11/2025 10:20 AM CDT Comprehensive Visit Division of Gastroenterology in [place], [place] [address] [place] [address] Jessica Rousseau M.B.B.S. [address] [place] [address] documented as of this encounter Procedures Procedure [...] Total Score: 2 12/10/19 25 2:46 PM WIRE COILER MACHINE OPERATOR documented as of this encounter Care Teams Service Electrician Relationship Specialty Start Date End Date Renzo Andres M.D. [address] [place] [phone] PCP - General Family Medicine 04/25/23 documented as of this encounter
--- OUTSIDE RECORDS SUMMARY | 2025-06-26 11:10 | XMS_ITS | Encounter Summary ---
Author Organization [facility] Address [address] [place] [phone] Care Team Providers Care Staff Research Associate Name Role Phone Renzo Andres M.D. Primary Care Provider [phone] Encounter Details Date Type Department Care Team (Latest Contact Info) Description 06/26/2025 11:10 AM CDT Anesthesia Event Division of Gastroenterology in [place], [place] [address] [place] [phone] Satya Lozada APRN, CRNA, DNAP [address] [place] [phone] Kiara Gaines M.D. [address] [place] [phone] Anesthesia Record Procedure Summary Procedure Name Responsible [...] things needed for daily living? No 06/24/2025 [facility] Utilities Answer Date Recorded In the past 12 months has th e electric, gas, oil, or water company threatened to shut off services in your home? No 06/24/2025 Depression Answer Date Recor ded PHQ-9 Total Score (max 27) 2 12/10 Housing Stability Answer Date Recorded What is your living situation today? I have a [facility] place to live 06/24/2025 Education Answer Date Recorded What is the highest level of school you have completed or the highest degree you have received? Some college, no degree 04/24/2019 Comments No Sex and Gender Information Value Date Recorded Sex Assigned at Female 12/26/2018 8:37 PM TYPIST Legal Sex Female 2:43 PM TYPIST Gender Identity Female 12/26/2018 8:37 PM TYPIST Sexual Orientation Choose not to disclose 2020 3:46 PM CDT documented as of this encounter OR Notes * Anesthesia Postprocedure Evaluation - Satya Lozada APRN, TANA, DNAP - 06/26/2025 11:48 AM CDT Patient: Radha Martinez Procedure Summary Date: 06/26/25 Room / Location: Division of Gastroenterology in [place], [place] Anesthesia Start: 1110 Anesthesia Stop: 1148 [...] FLEXIBLE SIGMOIDOSCOPY Location: Division of Gastroenterology in [place], [place] Pertinent components of the patient's history [...] with patient /legal guardian or through an pmo business analyst. The use of blood products not discussed Approval to Proceed: approved for anesthesia documented in this encounter Plan of Treatment Upcoming Encounters Date Type Department Care Team (Latest Contact Info) Description 06/30/2025 10:20 AM CDT Lab Department of Laboratory Medicine and Pathology, [facility] in [place], [place] [address] [place] [phone] Jessica Rousseau M.B.B.S. [address] [place] [phone] 06/30/2025 11:00 AM CDT Nurse Only [facility] Transplantation and Clinical Regeneration in [place], [place] [address] [place] [phone] Jessica Rousseau M.B.B.S. [address] [place] [phone] 06/30/2025 11:30 AM CDT Office Visit [facility] Transplantation and Clinical Regeneration in [place], [place] [address] [place] [phone] Jessica Rousseau M.B.B.S. [address] [place] [phone] 06/30/2025 3:00 PM CDT Appointment Department of Radiology, [facility], in [place], [place] [address] [place] [phone] Carlee Armas APRN, C.N.P., D.N.P., M.S.N. [address] [place] [phone] 07/03/2025 8:00 AM CDT Telemedicine Department of Palliative Care in [place], [place] [address] [place] [phone] Yary Landa D.O. [address] [place] [phone] 07/15/2025 9:00 AM CDT Telemedicine [facility] for Transplantation and Clinical Regeneration in [place], [place] [address] [place] [phone] Jessica Rousseau M.B.B.S. [address] [place] [address] [phone] 08/11/2025 9:00 AM CDT Nurse Only Section of Infectious Diseases in [place], [place] [address] [place] [phone] Jessica Rousseau M.B.B.S. [address] [place] [phone] 08/11/2025 10:20 AM CDT Comprehensive Visit Division of Gastroenterology in [place], [place] [address] [place] [phone] Jessica Rousseau M.B.B.S. [address] [place] [phone] documented as of this encounter Visit Diagnoses [...] Total Score: 2 12/10/19 25 2:46 PM TYPIST documented as of this encounter Care Teams Staff Research Associate Relationship Specialty Start Date End Date Renzo Andres M.D. [address] [place] [phone] PCP - General Family Medicine 04/25/23 documented as of this encounter
[2025-06-29 21:39] VITALS: BP 146/81; PULSE 84; RESP 16; TEMP 36.6; O2SAT 98; BMI 33.5
--- NOTE | 2025-06-29 22:30 | ED.GENADULT ---
HPI - General Adult General Chief complaint: Abdominal Pain Stated complaint: abdominal pain Time Seen by Provider: 06/29/25 22:30 History of Present Illness HPI narrative: pt presents stating she wants more pain control for her LL abd pain . states this is being worked up through her oncologist for weeks. states her dilaudid is not working anymore and wants something more. denies any new symptoms from her other workups. 35-year-old woman presenting to the emergency department with concern of left lower quadrant abdominal pain. Has had unexplained pain in this area for some time. Was seen in this facility on 06/17/2025 with abdominal pain. Apparently escalated about a week ago and then a little more today.. Was treated successfully with Toradol at that time. She has been seeing Oncology. History of CML and bone marrow transplant. There was some question now of rovag-zmrezt-joog disease and she did receive a flexible sigmoidoscopy with biopsies taken 3 days ago. Results are still pending. Was recommended not to take ketorolac any longer she thinks because of concern of interaction with other medication and potentially causing trouble in her liver. She has not had any fever. She has continued to take Dilaudid. 2 mg per dose. With escalation in pain apparently Flexeril was called in of which she tried her 1st dose today but this did not help. Related Data Home Medications ?Medication ?Instructions ?Recorded ?Confirmed duloxetine 60 mg capsule,delayed mg PO 08/06/22 release acyclovir 400 mg tablet 400 mg PO BID 05/31/25 06/14/25 aripiprazole 10 mg tablet 10 mg PO DAILY 05/31/25 06/14/25 buprenorphine 5 mcg/hour weekly 1 patch topical chronic pain 05/31/25 transdermal patch hydromorphone 1 mg/mL oral liquid 0.5 mg PO DAILY PRN pain 05/31/25 06/02/25 ketoconazole 2 % shampoo topical 05/31/25 ondansetron 4 mg disintegrating 4 - 8 mg PO Q8H PRN nausea/vomiting 05/31/25 06/14/25 tablet pantoprazole 40 mg tablet,delayed 40 mg PO BID 05/31/25 06/14/25 release penicillin V potassium 500 mg 500 mg PO BID 05/31/25 06/14/25 tablet posaconazole 100 mg tablet,delayed mg PO 05/31/25 release prochlorperazine maleate 10 mg 10 mg PO Q6H PRN 05/31/25 06/14/25 tablet budesonide 3 mg mg PO 06/14/25 capsule,delayed,extended release prednisone 10 mg tablet PO 06/14/25 sulfamethoxazole 400 1 tab PO DAILY 06/14/25 06/14/25 mg-trimethoprim 80 mg tablet Previous Rx's ?Medication ?Instructions ?Recorded ketorolac 10 mg tablet 10 mg PO Q6H PRN pain #20 tabs 06/17/25 Allergies Allergy/AdvReac Type Severity Reaction Status Date / Time grapefruit Allergy Intermediate other Verified 06/29/25 21:41 amoxicillin Allergy Mild other Verified 06/29/25 21:41 bupropion (From Wellbutrin) Allergy Mild other Verified 06/29/25 21:41 Review of Systems Status of ROS: Reports: 6 or more systems reviewed and unremarkable except as noted in History and below PFSH PFS Social History Smoking Status: Never smoker Do you use any of these nicotine containing products: None Second hand tobacco smoke exposure: No How often do you have a drink containing alcohol: never How often do you have six or more drinks on one occasion: Never AUDIT-C Alcohol total score: 0 Non-prescribed substance use: denies use service: No Exam Narrative: Exam Narrative: Pleasant. Appears tired. Abdomen is quite soft with normoactive bowel sounds. Moderately sore to palpation in the right lower abdomen. Not exactly adnexal. Extremities are well perfused without edema. Heart in regular rate and rhythm. Const: Vital Signs, click to edit/add: Vital Signs - 24 hr 06/29/25 21:39 06/29/25 23:42 06/29/25 23:45 Temperature 97.8 F Pulse Rate 72 69 Pulse Rate [Pulse Oximeter] 84 Respiratory Rate 16 Blood Pressure [Ri ght Upper Arm] 146/81 H Pulse Oximetry 98 94 95 Oxygen Delivery Me thod Room Air 06/30/25 00:00 06/30/25 00:28 Temperature Pulse Rate 68 Pulse Rate [Pulse Oximeter] 67 Respiratory Rate 18 Blood Pressure [Ri ght Upper Arm] 128/86 Pulse Oximetry 94 Oxygen Delivery Me thod Documenting provider has reviewed patient's vital signs: yes Course Vital Signs Vital signs: Initial Vital Signs Temperature 97.8 F 06/29/25 21:39 Temperature Source Temporal Artery Scan 06/29/25 21:39 Pulse Rate 84 06/29/25 21:39 Respiratory Rate 16 06/29/25 21:39 Blood Pressure 146/81 H 06/29/25 21:39 Blood Pressure Mean 102 06/29/25 21:39 Blood Pressure Position Sitting 06/29/25 21:39 Pulse Oximetry 98 06/29/25 21:39 Oxygen Delivery Method Room Air 06/29/25 21:39 Vital Signs Temperature 97.8 F 06/29/25 21:39 Pulse Rate 84 06/29/25 21:39 Respiratory Rate 16 06/29/25 21:39 Blood Pressure 146/81 H 06/29/25 21:39 Pulse Oximetry 98 06/29/25 21:39 Oxygen Delivery Method Room Air 06/29/25 21:39 Temperature 97.8 F 06/29/25 21:39 Pulse Rate 67 06/30/25 00:28 Respiratory Rate 18 06/30/25 00:28 Blood Pressure 128/86 06/30/25 00:28 Pulse Oximetry 94 06/30/25 00:00 Oxygen Delivery Method Room Air 06/29/25 21:39 Medications Administered Medications: Discontinued Medications Generic Name Dose Route Start Last Admin Trade Name Maximiliano PRN Reason Stop Dose Admin Sodium Chloride 1,000 mls @ 1,000 mls/hr 06/29/25 23:06 06/30/25 00:29 0.9 % Sodium Chloride 1000 Ml IV 06/30/25 00:05 Infused .Q1H ONE Infusion Morphine Sulfate 4 mg 06/29/25 23:06 06/29/25 23:33 Morphine 4 Mg/Ml Inj IVP 06/29/25 23:07 4 mg ONCE ONE Administration Medical Decision Making MDM Narrative Medical decision making narrative: Certainly abdominal pain though it seems to be an escalation of the usual, could be related to this biopsy taken during flex sig. Abdominal exam seems inconsistent with perforation and consistent with prior being concerns. Otherwise has had extensive evaluation, imaging. I did verify that she did have a pelvic ultrasound done this last week which apparently was unremarkable. She does report some blood with wiping earlier today. Probably not inconsistent with the biopsies. Would work on treating her pain. She would like more immediate pain relief if possible. Would check standard labs looking for any red flags to problem further workup/evaluation/imaging. Initiated IV. Normal saline. Since already has Dilaudid available, did try 4 mg of morphine. This actually did result in good relief of pain. Labs are reassuring. Perhaps alternative opiate would be beneficial. Intermittently could certainly double up on her Dilaudid here and there if necessary. See patient discharge plan for further discussion Stay well-hydrated. Will trial a different kind of pain medication for you in the form of tramadol. It appears that 4 mg of morphine IV was quite effective for you here in the ER. Am prescribing tramadol from [email or web address] Hopefully you can receive some answers soon. Be seen/return for marked increase in persistent pain, repeated vomiting, associated fever. While taking opiate pain medication like Dilaudid, it would be a good idea to take senna once or twice daily to help with bowels. Would also add MiraLax equivalent to your liquid intake during the day. Medical Records Medical records reviewed: Yes I reviewed the patient's medical records Lab Data Lab results reviewed: Yes I reviewed the patient's lab results Labs: Lab Results 06/29/25 Range/Units 23:20 WBC 5.31 (4.50-11.00) K/uL RBC 4.44 (4.00-5.20) m/uL Hgb 12.2 (12.0-16.0) gm/dL Hct 37.1 (33.0-51.0) % MCV 84 (80-100) fL MCH 28 (26-34) pg MCHC 33 (32-36) gm/dL RDW Coeff of [place] 13.9 (11.5-15.5) % Plt Count 180 (140-440) K/uL Neut % (Auto) 70.8 (42.0-72.0) % Lymph % (Auto) 17.5 L (20-44) % [place] % (Auto) 7.2 (0.0-11.0) % Eos % (Auto) 1.1 (0.0-7.0) % Baso % (Auto) 0.4 (0.0-3.0) % Neut # (Auto) 3.76 (1.7-7.0) K/uL Lymph # (Auto) 0.90 (0.90-2.90) K/uL [place] # (Auto) 0.40 (0.00-0.90) K/UL Eos # (Auto) 0.06 (0.00-0.50) K/uL Baso # (Auto) 0.02 (0.00-0.30) K/uL Abs Immat Gran (auto) 0.16 (0.00-0.30) K/uL Imm/Tot Granulo (auto) 3.0 % Sodium 138 (135-149) mmol/L Potassium 3.7 (3.6-5.1) mmol/L Chloride 103 (96-114) mmol/L Carbon Dioxide 27 (20-32) mmol/L Anion Gap 8 (7-15) mEq/L BUN 15 (5-24) mg/dL Creatinine 0.7 (0.5-1.5) mg/dL Estimated Creat Clear 112.08 Estimated GFR 115 ml/min Glucose 93 (60-115) mg/dL Calcium 9.5 (8.4-10.6) mg/dL Total Bilirubin 0.2 (0.1-1.5) mg/dL Direct Bilirubin 0.2 (0.0-0.5) mg/dL AST 24 (12-35) U/L ALT 33 (4-35) U/L Alkaline Phosphatase 102 (40-150) U/L C-Reactive Protein < 0.5 L (0.5-1.0) mg/dL Total Protein 7.5 (6.0-8.3) g/dL Albumin 4.2 (3.3-5.0) g/dL Discharge Plan Discharge Clinical Impression: Abdominal pain, left lower quadrant Patient Disposition: Home, Self-Care Condition: Improved Additional Instructions: Stay well-hydrated. Will trial a different kind of pain medication for you in the form of tramadol. It appears that 4 mg of morphine IV was quite effective for you here in the ER. Am prescribing tramadol from [employer]. Hopefully you can receive some answers soon. Be seen/return for marked increase in persistent pain, repeated vomiting, associated fever. While taking opiate pain medication like Dilaudid, it would be a good idea to take senna once or twice daily to help with bowels. Would also add MiraLax equivalent to your liquid intake during the day. Prescriptions: No Action duloxetine 60 mg capsule,delayed release(DR/EC) PO acyclovir 400 mg tablet 400 mg PO BID aripiprazole 10 mg tablet 10 mg PO DAILY buprenorphine 5 mcg/hour patch weekly 1 patch topical ketoconazole 2 % shampoo topical penicillin V potassium 500 mg tablet 500 mg PO BID prochlorperazine maleate 10 mg tablet 10 mg PO Q6H PRN pantoprazole 40 mg tablet,delayed release (DR/EC) 40 mg PO BID ondansetron 4 mg tablet,disintegrating 4 - 8 mg PO Q8H PRN (Reason: nausea/vomiting) hydromorphone 1 mg/mL liquid 0.5 mg PO DAILY PRN (Reason: pain) posaconazole 100 mg tablet,delayed release (DR/EC) PO prednisone 10 mg tablet PO sulfamethoxazole-trimethoprim 400-80 mg tablet 1 tab PO DAILY budesonide 3 mg capsule,delayed,extend.release PO ketorolac 10 mg tablet 10 mg PO Q6H PRN (Reason: pain) Qty: 20 0RF Rx Instructions: maximum total duration of 5 days from all oral, intranasal, or parenteral formulations Follow Up/Referrals: Anny Matthews NP [Primary Care Provider, Family Practice] Stand Alone Forms: [facility] Info Instructions
--- OUTSIDE RECORDS SUMMARY | 2025-06-29 22:49 | XMS_ITS | Encounter Summary ---
Author Organization [facility] Address [address] [place] [address] Care Team Providers Care Retail Personal Banker Name Role Phone Renzo Andres M.D. Primary Care Provider Encounter Details Date Type Department Care Team (Late st Contact Info) Description 12/24/2002 Historical Ophthalmology [facility]ST OPH Fercho Jeronimo M.D. Social History Tobacco Use Types Packs/Day Years Used Date Smoking Tobacco: Never Assessed Comments Unknown Sex and Gender Information Value Date Recorded Sex Assigned at Female 12/26/2018 8:37 PM PRINTS AND DRAWINGS CURATOR Legal Sex Female 2:43 PM PRINTS AND DRAWINGS CURATOR Gender Identity Female 12/26/2018 8:37 PM PRINTS AND DRAWINGS CURATOR Sexual Orientation Choose not to disclose 2020 [...] 1) given. CDM Reports - EYEGEN Id: [id number] Status: Fnl documented in this encounter Plan of Treatment Upcoming Encounters Date Type Department Care Team (Latest Contact Info) Description 06/30/2025 10:20 AM CDT Lab Department of Laboratory Medicine and Pathology, [facility], in [place], [place] [address] [place] [phone] Jessica Rousseau M.B.B.S. [address] [place] [phone] 06/30/2025 11:00 AM CDT Nurse Only [facility] in [address] [phone] Jessica Rousseau M.B.B.S. [address] [place] [phone] 06/30/2025 11:30 AM CDT Office Visit [facility] in [address] [phone] Jessica Rousseau M.B.B.S. [address] [place] [phone] 06/30/2025 3:00 PM CDT Appointment Department of Radiology, [facility], in [place], [place] [address] [place] [phone] Carlee Armas APRN, C.N.P., D.N.P., M.S.N. [address] [place] [phone] 07/03/2025 8:00 AM CDT Telemedicine Department of Palliative Care in [place], [place] [address] [place] [phone] Yary Landa D.O. [address] [place] [phone] 07/15/2025 9:00 AM CDT Telemedicine [facility] in [place], [place] [address] [place] [address] Jessica Rousseau M.B.B.S. [address] [place] [phone] 08/11/2025 9:00 AM CDT Nurse Only Section of Infectious Diseases in [place], [place] [address] [place] [phone] Jessica Rousseau M.B.B.S. [address] [place] [phone] 08/11/2025 10:20 AM CDT Comprehensive Visit Division of Gastroenterology in [place], [place] [address] [place] [phone] Jessica Rousseau M.B.B.S. [address] [place] [phone] documented as of this encounter Visit Diagnoses Not on filedocumented in this encounter Additional Health Concerns Infection Onset Date Last Indicated Resolved Time COVID19 Pending 04/20/2020 04/20/2020 04/23/2020 2 :28 AM CDT COVID19 Pending 07/07/2020 07/07/2020 07/07/2020 7 :12 PM CDT COVID19 Pending 03/15/2021 03/15/2021 03/16/2021 1 1:39 AM CDT COVID19 01/07/2023 01/07/2023 01/27/2023 5:15 AM PRINTS AND DRAWINGS CURATOR Protective Environment 03/02/2023 03/02/2023 COVID19 Pending 12/04/2024 12/04/2024 12/04/2024 1 0:20 AM PRINTS AND DRAWINGS CURATOR documented as of this encounter Care Teams Retail Personal Banker Relationship Specialty Start Date End Date Renzo Andres M.D. [address] [place] [address] [place] [phone] PCP - General Family Medicine 04/25/23 documented as of this encounter
--- OUTSIDE RECORDS SUMMARY | 2025-06-29 22:49 | XMS_ITS | Encounter Summary ---
Author Organization [facility] Address [address] [place] [address] Care Team Providers Care Sales/Marketing Name Role Phone Renzo Andres M.D. Primary Care Provider Encounter Details Date Type Department Care Team (Late st Contact Info) Description 07/04/2006 Historical Ophthalmology RST OPH Fercho Jeronimo M.D. Social History Tobacco Use Types Packs/Day Years Used Date Smoking Tobacco: Never Assessed Comments Unknown Sex and Gender Information Value Date Recorded Sex Assigned at Female 12/26/2018 8:37 PM TRAFFIC ADMINISTRATOR Legal Sex Female 2:43 PM TRAFFIC ADMINISTRATOR Gender Identity Female 12/26/2018 8:37 PM TRAFFIC ADMINISTRATOR Sexual Orientation Choose not to disclose [...] both eyes. No eye complaints. Wearing glasses multimedia project manager. No diplopia. Would like to get [...] both eyes CDM Reports - EYEGEN Id: [id number] Status: Fnl documented in this encounter Plan of Treatment Upcoming Encounters Date Type Department Care Team (Latest Contact Info) Description 06/30/2025 10:20 AM CDT Lab Department of Laboratory Medicine and Pathology, [facility] in [place], [place] [address] [place] [phone] Jessica Rousseau M.B.B.S. [address] [place] [phone] 06/30/2025 11:00 AM CDT Nurse Only Pedro [facility] in [place], [place] [address] [place] [address] Jessica Rousseau M.B.B.S. [address] [place] [phone] 06/30/2025 11:30 AM CDT Office Visit [facility] in [place], [place] [address] [place] [phone] Jessica Rousseau M.B.B.S. [address] [place] [phone] 06/30/2025 3:00 PM CDT Appointment Department of Radiology, [facility], in [place], [place] [address] [place] [address] Carlee Armas APRN, C.N.P., D.N.P., M.S.N. [address] [place] [phone] 07/03/2025 8:00 AM CDT Telemedicine Department of Palliative Care in [place], [place] [address] [place] [phone] Yary Landa D.O. [address] [place] [phone] 07/15/2025 9:00 AM CDT Telemedicine [facility] in [place], [place] [address] [place] [phone] Jessica Rousseau M.B.B.S. [address] [place] [phone] 08/11/2025 9:00 AM CDT Nurse Only Section of Infectious Diseases in [place], [place] [address] [place] [phone] Jessica Rousseau M.B.B.S. [address] [place] [phone] 08/11/2025 10:20 AM CDT Comprehensive Visit Division of Gastroenterology in [place], [place] [address] [place] [phone] Jessica Rousseau M.B.B.S. [address] [place] [phone] documented as of this encounter Visit Diagnoses Not on filedocumented in this encounter Additional Health Concerns Infection Onset Date Last Indicated Resolved Time COVID19 Pending 04/20/2020 04/20/2020 04/23/2020 2 :28 AM CDT COVID19 Pending 07/07/2020 07/07/2020 07/07/2020 7 :12 PM CDT COVID19 Pending 03/15/2021 03/15/2021 03/16/2021 1 1:39 AM CDT COVID19 01/07/2023 01/07/2023 01/27/2023 5:15 AM TRAFFIC ADMINISTRATOR Protective Environment 03/02/2023 03/02/2023 COVID19 Pending 12/04/2024 12/04/2024 12/04/2024 1 0:20 AM TRAFFIC ADMINISTRATOR documented as of this encounter Care Teams Sales/Marketing Relationship Specialty Start Date End Date Renzo Andres M.D. [address] [place] [address] [place] [phone] PCP - General Family Medicine 04/25/23 documented as of this encounter
--- OUTSIDE RECORDS SUMMARY | 2025-06-29 22:49 | XMS_ITS | Encounter Summary ---
Author Organization [facility] Address [address] [place] [address] Care Team Providers Care Bilingual Loan Processor Name Role Phone Renzo Andres M.D. Primary Care Provider Encounter Details Date Type Department Care Team (Late st Contact Info) Description 02/16/2005 Historical Ophthalmology RST OPH Fercho Jeronimo M.D. Social History Tobacco Use Types Packs/Day Years Used Date Smoking Tobacco: Never Assessed Comments Unknown Sex and Gender Information Value Date Recorded Sex Assigned at Female 12/26/2018 8:37 PM SEED SERVICE ADVISOR Legal Sex Female 2:43 PM SEED SERVICE ADVISOR Gender Identity Female 12/26/2018 8:37 PM SEED SERVICE ADVISOR Sexual Orientation Choose not to disclose 2020 3:46 PM CDT documented as of this encounter Progress Notes * Frecho Jeronimo M.D. - 02/16/2005 12:00 AM CST [...] both eyes CDM Reports - EYEGEN Id: [id number] Status: Fnl documented in this encounter Plan of Treatment Upcoming Encounters Date Type Department Care Team (Latest Contact Info) Description 06/30/2025 10:20 AM CDT Lab Department of Laboratory Medicine and Pathology, [facility] in [place], [place] [address] [place] [phone] Jessica Rousseau M.B.B.S. [address] [place] [phone] 06/30/2025 11:00 AM CDT Nurse Only [facility] Transplantation and Clinical Regeneration in [place], [place] [address] [place] [phone] Jessica Rousseau M.B.B.S. [address] [place] [address] [phone] 06/30/2025 11:30 AM CDT Office Visit [facility] Transplantation and Clinical Regeneration in [place], [place] [address] [place] [phone] Jessica Rousseau M.B.B.S. [address] [place] [phone] 06/30/2025 3:00 PM CDT Appointment Department of Radiology, [facility], in [place], [place] [address] [place] [phone] Carlee Armas APRN, C.N.P., D.N.P., M.S.N. [address] [place] [address] [phone] 07/03/2025 8:00 AM CDT Telemedicine Department of Palliative Care in [place], [place] [address] [place] [phone] Yary Landa D.O. [address] [place] [phone] 07/15/2025 9:00 AM CDT Telemedicine [facility] for Transplantation and Clinical Regeneration in [place], [place] [address] [place] [phone] Jessica Rousseau M.B.B.S. [address] [place] [phone] 08/11/2025 9:00 AM CDT Nurse Only Section of Infectious Diseases in [place], [place] [address] [place] [phone] Jessica Rousseau M.B.B.S. [address] [place] [phone] 08/11/2025 10:20 AM CDT Comprehensive Visit Division of Gastroenterology in [place], [place] [address] [place] [phone] Jessica Rousseau M.B.B.S. [address] [place] [phone] documented as of this encounter Visit Diagnoses Not on filedocumented in this encounter Additional Health Concerns Infection Onset Date Last Indicated Resolved Time COVID19 Pending 04/20/2020 04/20/2020 04/23/2020 2 :28 AM CDT COVID19 Pending 07/07/2020 07/07/2020 07/07/2020 7 :12 PM CDT COVID19 Pending 03/15/2021 03/15/2021 03/16/2021 1 1:39 AM CDT COVID19 01/07/2023 01/07/2023 01/27/2023 5:15 AM SEED SERVICE ADVISOR Protective Environment 03/02/2023 03/02/2023 COVID19 Pending 12/04/2024 12/04/2024 12/04/2024 1 0:20 AM SEED SERVICE ADVISOR documented as of this encounter Care Teams Bilingual Loan Processor Relationship Specialty Start Date End Date Renzo Andres M.D. [address] [place] [phone] PCP - General Family Medicine 04/25/23 documented as of this encounter
--- OUTSIDE RECORDS SUMMARY | 2025-06-29 22:50 | XMS_ITS | Clinical Summary ---
Author Organization [facility] Address [address] [place] [address] Care Team Providers Care Fagot Heater Name Role Phone System, Provider Not In [...] Description 07/07/2025 2:40 PM CDT Office Visit [address] [place] [phone] Madeleine Roberts MD [address] [place] [address] [place] [address] [phone] Health Maintenance Due Date Last Done Comments [...] 08/02/2023, 019 Insurance [facility] Address: [id number] [place] [phone] MEDICARE [facility] Address: [id number] [place] [phone] MEDICARE Care Teams Fagot Heater Relationship Specialty Start Date End Date System, Provider Not In PCP - General Clinic 06/08/22
--- OUTSIDE RECORDS SUMMARY | 2025-06-29 22:50 | XMS_ITS | Encounter Summary ---
Author Organization [facility] Address [address] [place] [address] Care Team Providers Care Parachute Repairer Name Role Phone Renzo Andres M.D. Primary Care Provider [phone] Encounter Details Date Type Department Care Team (Late st Contact Info) Description 10/25/2022 Orders Only [facility] [address] [place] [phone] [facility], Provider, MD Screening Test Laboratory [...] place to sleep or slept in a mcc (including now)? Patient refused 01/25/2022 Depression Answer Date Recor ded PHQ-9 Total Score (max 27) 11 08/01 Education Answer Date Recorded What is the highest level of school you have completed or the highest degree you have received? Some college, no degree 04/24/2019 Comments No Sex and Gender Information Value Date Recorded Sex Assigned at Female 12/26/2018 8:37 PM ROCKET ENGINE COMPONENT MECHANIC Legal Sex Female 2:43 PM ROCKET ENGINE COMPONENT MECHANIC Gender Identity Female 12/26/2018 8:37 PM ROCKET ENGINE COMPONENT MECHANIC Sexual Orientation Choose not to disclose 2020 3:46 PM CDT documented as of this encounter Plan of Treatment Upcoming Encounters Date Type Department Care Team (Latest Contact Info) Description 06/30/2025 10:20 AM CDT Lab Department of Laboratory Medicine and Pathology, [facility], in [place], [place] 200 [place] [phone] Jessica Rousseau M.B.B.S. 200 [place] [phone] 06/30/2025 11:00 AM CDT Nurse Only [facility] Transplantation and Clinical Regeneration in [place], [place] [address] [place] [address] Jessica Rousseau M.B.B.S. [address] [place] [phone] 06/30/2025 11:30 AM CDT Office Visit [facility] Transplantation and Clinical Regeneration in [place], [place] [address] [place] [address] Jessica Rousseau M.B.B.S. [address] [place] [phone] 06/30/2025 3:00 PM CDT Appointment Department of Radiology, [facility], in [place], [place] [address] [place] [address] Carlee Armas APRN, C.N.P., D.N.P., M.S.N. [address] [place] [phone] 07/03/2025 8:00 AM CDT Telemedicine Department of Palliative Care in [place], [place] [address] [place] [phone] Yary Landa, DeniseOKatalina [address] [place] [phone] 07/15/2025 9:00 AM CDT Telemedicine [facility] Transplantation and Clinical Regeneration in [place], [place] [address] [place] [phone] Jessica Rousseau M.B.B.S. [address] [place] [phone] 08/11/2025 9:00 AM CDT Nurse Only Section of Infectious Diseases in [place], [place] [address] [place] [address] Jessica Rousseau M.B.B.S. [address] [place] [address] 08/11/2025 10:20 AM CDT Comprehensive Visit Division of Gastroenterology in [place], [place] [address] [place] [phone] Jessica Rousseau M.B.B.S. [address] [place] [phone] documented as of this encounter Visit Diagnoses Diagnosis Screening Test Laboratory documented in this encounter Additional Health Concerns Infection Onset Date Last Indicated Resolved Time COVID19 01/07/2023 01/07/2023 01/27/2023 5:15 AM ROCKET ENGINE COMPONENT MECHANIC Protective Environment 03/02/2023 03/02/2023 COVID19 Pending 12/04/2024 12/04/2024 12/04/2024 1 0:20 AM ROCKET ENGINE COMPONENT MECHANIC Assessment Noted Time PHQ-9 Depression Total Score: 11 022 10:21 AM CDT documented as of this encounter Care Teams Parachute Repairer Relationship Specialty Start Date End Date Renzo Andres M.D. [address] [place] [phone] PCP - General Family Medicine 04/25/23 documented as of this encounter
--- OUTSIDE RECORDS SUMMARY | 2025-06-29 22:50 | XMS_ITS | Encounter Summary ---
Author Organization [facility] Address [address] [place] [address] Care Team Providers Care Intensive Care Medicine Specialist Name Role Phone Renzo Andres M.D. 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 [address] [place] [address] Phone: tel: fax: [facility] Referral ID Status Reason Start Date Expiration Date V isits Requested Visits Authorized [id number] Authorized 06/17/2025 12/17/2026 1 1 Reason for Visit * Reason Onset Date Comments Symptom Assessment 06/17/2025 Encounter Details Date Type Department Care Team (Latest Contact Info) Description 06/17/2025 Clinical Communication [facility] in [place], [place] [address] [place] [phone] Jeanna Victor Symptom Assessment Social History Tobacco Use Types Packs/Day [...] things needed for daily living? No 06/12/2025 [facility] Utilities Answer Date Recorded In the past 12 months has [employer], gas, oil, or water ISH threatened to shut off services in your home? No 06/12/2025 Depression Answer Date Recor ded PHQ-9 Total Score (max 27) 2 12/10 Housing Stability Answer Date Recorded What is your living situation today? I have a [facility] place to live 06/12/2025 Education Answer Date Recorded What is the highest level of school you have completed or the highest degree you have received? Some college, no degree 04/24/2019 Comments No Sex and Gender Information Value Date Recorded Sex Assigned at Female 12/26/2018 8:37 PM AGRICULTURE TEACHER Legal Sex Female 2:43 PM AGRICULTURE TEACHER Gender Identity Female 12/26/2018 8:37 PM AGRICULTURE TEACHER Sexual Orientation Choose not to disclose 2020 3:46 PM CDT documented as of this encounter Miscellaneous Notes * Telephone Encounter - Haven Ramirez R.N. 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 She calls today with sharper abdominal pain which has moved from the mid section to bilateral abdominal sides as well as chest pain. She wasrecently admitted 06/12/25 to 06/13/25 due to abdominal pain. CT abdomen and pelvis from 06/12/25 showed moderate colonic stool burden. She took 1 capful of MiraLAX on 06/15/25 as well as 06/16/25 which resulted in 6 solid stools which have now turned to diarrhea. She has had two episodes of watery diarrhea today. She continues to have uncontrolled sharp abdominal pain as well as chest pain. She also reports Nausea which Zofran has reduced but not resolved. She feels fatigued and is crying during our conversation. She feels as though, something is wrong. She denies shortness of breath or lightheadedness. PLAN I recommended she hold off on taking any more MiraLAX and that she be evaluated in the emergency department related to uncontrolled pain and chest pain. Disposition/Recommendation: Hold MiraLAX, be evaluated in ER. Information/Education: patient/caller able to teach back. Caller agreeable to plan of care: yes. The following references were used: nursing clinical judgement and other notify BMT team. documented in this encounter Plan of Treatment Upcoming Encounters Date Type Department Care Team (Latest Contact Info) Description 06/30/2025 10:20 AM CDT Lab Department of Laboratory Medicine and Pathology, [facility] in [place], [place] [address] [place] [address] Jessica Rousseau M.B.B.S. [address] [place] [phone] 06/30/2025 11:00 AM CDT Nurse Only [facility] Transplantation and Clinical Regeneration in [place], [place] [address] [place] [phone] Jessica Rousseau M.B.B.S. [address] [place] [phone] 06/30/2025 11:30 AM CDT Office Visit [facility] Transplantation and Clinical Regeneration in [place], [place] [address] [place] [phone] Jessica Rousseau M.B.B.S. [address] [place] [phone] 06/30/2025 3:00 PM CDT Appointment Department of Radiology, [facility], in [place], [place] [address] [place] [phone] Carlee Armas APRN, C.N.P., D.N.P., M.S.N. [address] [place] [phone] 07/03/2025 8:00 AM CDT Telemedicine Department of Palliative Care in [place], [place] [address] [place] [phone] Yary Landa D.O. [address] [place] [phone] 07/15/2025 9:00 AM CDT Telemedicine [facility] Transplantation and Clinical Regeneration in [place], [place] [address] [place] [phone] Jessica Rousseau M.B.B.S. [address] [place] [phone] 08/11/2025 9:00 AM CDT Nurse Only Section of Infectious Diseases in [place], [place] [address] [place] [address] Jessica Rousseau M.B.B.S. [address] [place] [address] 08/11/2025 10:20 AM CDT Comprehensive Visit Division of Gastroenterology in [place], [place] [address] [place] [address] Jessica Rousseau M.B.B.S. 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 [address] [place] [phone] PCP - General Family Medicine 04/25/23 documented as of this encounter
--- OUTSIDE RECORDS SUMMARY | 2025-06-29 22:50 | XMS_ITS | Encounter Summary ---
Author Organization [facility] Address [address] [place] [address] Care Team Providers Care Press Operator Printing Name Role Phone Renzo Andres M.D. Primary Care Provider Encounter Details Date Type Department Care Team (Late st Contact Info) Description 05/06/2009 Historical Ophthalmology RST OPH Reginald Peter O.D. [address] [place] [phone] Social History Tobacco Use Types Packs/Day Years Used Date Smoking Tobacco: Never Assessed Comments Unknown Sex and Gender Information Value Date Recorded Sex Assigned at Female 12/26/2018 8:37 PM BELL CLEANER Legal Sex Female 2:43 PM BELL CLEANER Gender Identity Female 12/26/2018 8:37 PM BELL CLEANER Sexual Orientation Choose not to disclose [...] (hyperopic astigmatism). CDM Reports - EYEGEN Id: [id number] Status: Fnl documented in this encounter Plan of Treatment Upcoming Encounters Date Type Department Care Team (Latest Contact Info) Description 06/30/2025 10:20 AM CDT Lab Department of Laboratory Medicine and Pathology, [facility] in [place], [place] [address] [place] [address] Jessica Rousseau M.B.B.S. [address] [place] [phone] 06/30/2025 11:00 AM CDT Nurse Only [facility] in [place], [place] [address] [place] [phone] Jessica Rousseau M.B.B.S. [address] [place] [phone] 06/30/2025 11:30 AM CDT [facility] in [place], [place] [address] [place] [phone] Jessica Rousseau M.B.B.S. [address] [place] [phone] 06/30/2025 3:00 PM CDT Appointment Department of Radiology, [facility], in [place], [place] [address] [place] [address] Carlee Armas APRN, C.NLuigi., Heaven.N.P., M.S.N. [address] [place] [phone] 07/03/2025 8:00 AM CDT Telemedicine Department of Palliative Care in [place], [place] [address] [place] [phone] Yary Landa D.O. [address] [place] [phone] 07/15/2025 9:00 AM CDT Telemedicine Pedro Aravind [facility] for Transplantation and Clinical Regeneration in [place], [place] [address] [place] [phone] Jessica Rousseau M.B.B.S. [address] [place] [phone] 08/11/2025 9:00 AM CDT Nurse Only Section of Infectious Diseases in [place], [place] [address] [place] [phone] Jessica Rousseau M.B.B.S. [address] [place] [phone] 08/11/2025 10:20 AM CDT Comprehensive Visit Division of Gastroenterology in [place], [place] [address] [place] [phone] Jessica Rousseau M.B.B.S. [address] [place] [phone] documented as of this encounter Visit Diagnoses Not on filedocumented in this encounter Additional Health Concerns Infection Onset Date Last Indicated Resolved Time COVID19 Pending 04/20/2020 04/20/2020 04/23/2020 2 :28 AM CDT COVID19 Pending 07/07/2020 07/07/2020 07/07/2020 7 :12 PM CDT COVID19 Pending 03/15/2021 03/15/2021 03/16/2021 1 1:39 AM CDT COVID19 01/07/2023 01/07/2023 01/27/2023 5:15 AM BELL CLEANER Protective Environment 03/02/2023 03/02/2023 COVID19 Pending 12/04/2024 12/04/2024 12/04/2024 1 0:20 AM BELL CLEANER documented as of this encounter Care Teams Press Operator Printing Relationship Specialty Start Date End Date Renzo Andres M.D. NPAmanda: [id number] [address] [place] [phone] PCP - General Family Medicine 04/25/23 documented as of this encounter
--- OUTSIDE RECORDS SUMMARY | 2025-06-29 22:50 | XMS_ITS | Encounter Summary ---
Author Organization [facility] Address [address] [place] [address] Care Team Providers Care Ginning Operator Name Role Phone Renzo Andres M.D. Primary Care Provider [phone] Encounter Details Date Type Department Care Team (Late st Contact Info) Description 06/08/2025 Orders Only [facility], [facility], Ninth Floor [address] [place] [address] Analia Carter, POWER PLANT SUPERVISOR, C.N.P. [address] [place] [phone] Social History Tobacco Use Types Packs/Day Years [...] things needed for daily living? No 06/24/2025 [facility] Utilities Answer Date Recorded In the [...] [facility] to live 06/24/2025 Education Answer Date Recorded What is the highest level of school you have completed or the highest degree you have received? Some college, no degree 04/24/2019 Comments No Sex and Gender Information Value Date Recorded Sex Assigned at Female 12/26/2018 8:37 PM DAIRY QUALITY ASSURANCE OFFICER Legal Sex Female 2:43 PM DAIRY QUALITY ASSURANCE OFFICER Gender Identity Female 12/26/2018 8:37 PM DAIRY QUALITY ASSURANCE OFFICER Sexual Orientation Choose not to disclose 2020 3:46 PM CDT documented as of this encounter Plan of Treatment Upcoming Encounters Date Type Department Care Team (Latest Contact Info) Description 06/30/2025 10:20 AM CDT Lab Department of Laboratory Medicine and Pathology, [facility], in [place], [place] 200 [place] [address] Jessica Rousseau M.B.B.S. [address] [place] [address] 06/30/2025 11:00 AM CDT Nurse Only [facility] Transplantation and Clinical Regeneration in [place], [place] [address] [place] [phone] Jessica Rousseau M.B.B.S. [address] [place] [phone] 06/30/2025 11:30 AM CDT Office Visit [facility] Transplantation and Clinical Regeneration in [place], [place] [address] [place] [phone] Jessica Rousseau M.B.B.S. [address] [place] [phone] 06/30/2025 3:00 PM CDT Appointment Department of Radiology, [facility], in [place], [place] [address] [place] [phone] Carlee Armas APRN, Satnam.N.P., D.N.P., M.S.N. [address] [place] [phone] 07/03/2025 8:00 AM CDT Telemedicine Department of Palliative Care in [place], [place] [address] [place] [phone] Yary Landa D.O. [address] [place] [phone] 07/15/2025 9:00 AM CDT Telemedicine [facility] Transplantation and Clinical Regeneration in [place], [place] [address] [place] [phone] Jessica Rousseau M.B.B.S. [address] [place] [phone] 08/11/2025 9:00 AM CDT Nurse Only Section of Infectious Diseases in [place], [place] [address] [place] [address] Jessica Rousseau M.B.B.S. [address] [place] [address] 08/11/2025 10:20 AM CDT Comprehensive Visit Division of Gastroenterology in [place], [place] [address] [place] [address] Jessica Rousseau M.B.B.S. [address] [place] [address] documented as of this encounter Visit Diagnoses Not on filedocumented in this encounter Additional Health Concerns Infection Onset Date Last Indicated Resolved Time Protective Environment 03/02/2023 03/02/2023 Assessment Noted Time PHQ-9 Depression Total Score: 2 12/10/19 25 2:46 PM DAIRY QUALITY ASSURANCE OFFICER documented as of this encounter Care Teams Ginning Operator Relationship Specialty Start Date End Date Renzo Andres M.D. [address] [place] [phone] PCP - General Family Medicine 04/25/23 documented as of this encounter
--- OUTSIDE RECORDS SUMMARY | 2025-06-29 22:51 | XMS_ITS | Encounter Summary ---
Author Organization [facility] Address [address] [place] [address] Care Team Providers Care Fixture Relamper Name Role Phone Renzo Andres M.D. Primary Care Provider Encounter Details Date Type Department Care Team (Late st Contact Info) Description 06/05/2025 Documentation [facility] in [place], [place] [address] [place] [phone] Jessica Avila APRN, C.N.P., M.S.N. [address] [place] [phone] Social History Tobacco Use Types Packs/Day Years Used Date Smoking Tobacco: Never Smokeless Tobacco: Never Alcohol Use Standard Drinks/Week Comments Yes 0 (1 standard drink = 0.6 oz pur e alcohol) social [facility] Utilities Answer Date Recorded In the past 12 months has e [employer], gas, oil, or water company threatened to [...] your living situation today? [facility] 05/28/2025 Education Answer Date Recorded What is the highest level of school you have completed or the highest degree you have received? Some college, no degree 04/24/2019 Comments No Sex and Gender Information Value Date Recorded Sex Assigned at Female 12/26/2018 8:37 PM COIL CONNECTOR REPAIRER Legal Sex Female 2:43 PM COIL CONNECTOR REPAIRER Gender Identity Female 12/26/2018 8:37 PM COIL CONNECTOR REPAIRER Sexual Orientation Choose not to disclose 2020 [...] Laboratory Medicine and Pathology, [facility] in [place], [place] [address] [place] [phone] Jessica Rousseau M.B.B.S. [address] [place] [phone] 06/30/2025 11:00 AM CDT Nurse [facility] in [place], [place] [address] [place] [phone] Jessica Rousseau M.B.B.S. [address] [place] [phone] 06/30/2025 11:30 AM CDT [facility] in [place], [place] [address] [place] [address] Jessica Rousseau M.B.B.S. [address] [place] [phone] 06/30/2025 3:00 PM CDT Appointment Department of Radiology, [facility], in [place], [place] [address] [place] [address] Carlee Armas APRN, C.N.P., D.N.P., M.S.N. [address] [place] [phone] 07/03/2025 8:00 AM CDT Telemedicine Department of Palliative Care in [place], [place] [address] [place] [address] Yary Landa D.O. [address] [place] [phone] 07/15/2025 9:00 AM CDT Telemedicine [facility] for Transplantation and Clinical Regeneration in [place], [place] [address] [place] [address] Jessica Rousseau M.B.B.S. [address] [place] [phone] 08/11/2025 9:00 AM CDT Nurse Only Section of Infectious Diseases in [place], [place] [address] [place] [phone] Jessica Rousseau M.B.B.S. [address] [place] [phone] 08/11/2025 10:20 AM CDT Comprehensive Visit Division of Gastroenterology in [place], [place] [address] [place] [phone] Jessica Rousseau M.B.B.S. [address] [place] [phone] documented as of this encounter Visit Diagnoses Not on filedocumented in this encounter Additional Health Concerns Infection Onset Date Last Indicated Resolved Time Protective Environment 03/02/2023 03/02/2023 Assessment Noted Time PHQ-9 Depression Total Score: 2 12/10/19 25 2:46 PM COIL CONNECTOR REPAIRER documented as of this encounter Care Teams Fixture Relamper Relationship Specialty Start Date End Date Renzo Andres M.D. [address] [place] [phone] PCP - General Family Medicine 04/25/23 documented as of this encounter
--- OUTSIDE RECORDS SUMMARY | 2025-06-29 22:51 | XMS_ITS | Encounter Summary ---
Author Organization [facility] Address [address] [place] [address] Care Team Providers Care Internal Grinder Name Role Phone Renzo Andres M.D. Primary Care Provider Reason for Referral * Outpatient (Routine) - Closed Specialty Diagnoses / Procedures Referred By Estefania acosta Referred To Contact Diagnoses Transplant Stem Cell (HCC) Pain Pleuritic Chest Procedures ECG 12 Lead MT EKG 12 LEAD W I&R Analia Carter APRN, C.N.P. [address] [place] [phone] Phone: tel: fax: [facility] Referral ID Status Reason Start Date Expiration Date Visits Re quested Visits Authorized [id number] Closed 06/06/2025 09/06/2026 1 1 Encounter Details Date Type Department Care Team (Late st Contact Info) Description 06/06/2025 Orders Only [facility], Ninth Floor [address] [place] [phone] Analia Carter APRN, C.N.P. [address] [place] [phone] Transplant Stem Cell (HCC) (Primary Dx); Pain [...] things needed for daily living? No 06/12/2025 [facility] Utilities Answer Date Recorded In the past 12 months has [facility] electric, gas, oil, or water company threatened to shut off services in your home? No 06/12/2025 Depression Answer Date Recor ded PHQ-9 Total Score (max 27) 2 12/10 Housing Stability Answer Date Recorded What is your living situation today? I have a [facility] place to live 06/12/2025 Education Answer Date Recorded What is the highest level of school you have completed or the highest degree you have received? Some college, no degree 04/24/2019 Comments No Sex and Gender Information Value Date Recorded Sex Assigned at Female 12/26/2018 8:37 PM SCRATCHER Legal Sex Female 2:43 PM SCRATCHER Gender Identity Female 12/26/2018 8:37 PM SCRATCHER Sexual Orientation Choose not to disclose 2020 3:46 PM CDT documented as of this encounter Progress Notes * Analia Carter APRN, C.N.P. - 06/06/2025 5:05 PM CDT I took a call from Radha Vernontcher. She has had this ongoing chest pain since May 30. She has been seen 3 times in her local ED over the past week. The reports note that she has a negative cardiac work up, she had a Chest CT which wasnegative for PE. She recently had an EGD which did not show any abnormality. She noted that initially her pain was sternal and intermittent lasting 15-20 minutes. At that time her pain was described as sharp. She notes now her pain is a pressure type pain that is constantly present with no initiating factors and no relieving factors. She notes that this pain radiates up her neck and down into herepigastric area. She is currently on Prednisone 50 mg (taper should have her at 40 so she will decre ase tomorrow). She has tried Ibuprofen, Tylenol, warm packs, pantoprazole, TUMS without any relief.She reports that her pain is 3-5/10. She is able to sleep through the pain and the pain does not wake her up. She is feeling really depressed lately and has had anxiety but states this is not her anxiety. She sounds as though she is trying to stifle crying at the end of our conversation. She will try Maalox this evening. We discussed that she can come to station 9-4 tomorrow afternoon and we willcontinue to evaluate her. She may need an Echocardiogram to further evaluate her situation. documented in this encounter Plan of Treatment Upcoming Encounters Date Type Department Care Team (Latest Contact Info) Description 06/30/2025 10:20 AM CDT Lab Department of Laboratory Medicine and Pathology, [facility], in [place], [place] [address] [place] [address] Jessica Rousseau M.B.B.S. [address] [place] [phone] 06/30/2025 11:00 AM CDT Nurse Only Pedro Fatima [facility] Clinical Regeneration in [place], [place] [address] [place] [phone] Jessica Rousseau M.B.B.S. [address] [place] [phone] 06/30/2025 11:30 AM CDT Office Visit Pedro Fatima [facility] Transplantation and Clinical Regeneration in [place], [place] [address] [place] [phone] Jessica Rousseau M.B.B.S. [address] [place] [phone] 06/30/2025 3:00 PM CDT Appointment Department of Radiology, [facility], in [place], [place] [address] [place] [phone] Carlee Armas APRN, C.N.P., D.N.P., M.S.N. [address] [place] [phone] 07/03/2025 8:00 AM CDT Telemedicine Department of Palliative Care in [place], [place] [address] [place] [phone] Yary Landa D.O. [address] [place] [phone] 07/15/2025 9:00 AM CDT Telemedicine [facility] for [facility] and Clinical Regeneration in [place], [place] [address] [place] [address] Jessica Rousseau M.B.B.S. [address] [place] [phone] 08/11/2025 9:00 AM CDT Nurse Only Section of Infectious Diseases in [place], [place] [address] [place] [address] Jessica Rousseau M.B.B.S. [address] [place] [phone] 08/11/2025 10:20 AM CDT Comprehensive Visit Division of Gastroenterology in [place], [place] [address] [place] [address] Jessica Rousseau M.B.B.S. [address] [place] [address] documented as of this encounter Results * ECG 12 Lead (06/07/2025 12:15 PM CDT) Ventricular Rate ECG/Min 86 BPM MUSE MT Interval 172 ms MUSE QRSD Interval 78 ms MUSE QT Interval 350 ms MUSE QTC Interval 418 ms MUSE P [place] 55 degrees MUSE R [place] 11 degrees MUSE T Wave [place] 38 degrees MUSE 06/07/2025 12:1 5 PM [...] BLOOD ADD-ON Final Result Performing Organization Address City/[facility] de Phone Number [facility] [address] DTL [facility] 200 [place] [address] * NT-Pro B-Type Natriuretic Peptide (BNP) (06/07/2025 [...] BLOOD ADD-ON Final Result Performing Organization Address City/[facility]/ZIP Co de Phone Number [facility] [address] 200 [place] [address] * Troponin T, 5th Generation (06/07/2025 12:12 PM CDT) [facility] Troponin T, 5th gen <6 <=10 ng/L 06/07/2025 1:04 PM CDT DT Blood (Blood, Venous) 06/07/2025 12:12 PM CDT 06/07/2025 12:19 PM CDT Analia Gamez APRN, C.N.P. LAB BLOOD ADD-ON Final Result Performing Organization Address [facility] Co de Phone Number [facility] [address] 200 [place] [address] * Magnesium (06/07/2025 12:12 PM CDT) [facility] Magnesium, S 2.2 1.7 - 2.3 mg/dL 06/07/2025 2:36 PM CDT DT Blood (Blood, Venous) 06/07/2025 12:12 PM CDT 06/07/2025 12:19 PM CDT Analia Gamez APRN, C.N.P. LAB BLOOD ADD-ON Final Result Performing Organization Address City/[facility]/ZIP Co de Phone Number [facility] [address] 200 [place] [address] * (ABNORMAL) Comprehensive Metabolic Panel (06/07/2025 12:12 PM CDT) [facility] Potassium, S 4.3 3.6 - 5.2 mmol/L [...] 12:12 PM CDT 06/07/2025 12:19 PM CDT Analiakim Bush Vera BRANTLEY, C.N.P. LAB BLOOD ADD-ON Final Result [facility] [address] [place] [address], [facility] DTL [facility] [address] [place] [address] * (ABNORMAL) CBC no call back, reflex [...] PM CDT 06/07/2025 12:19 PM CDT Analia Bush Vera BRANTLEY, C.N.P. LAB BLOOD NON ADD-ON Final Result [facility] [address] [place] [address], [place] DTL [facility] [address] [place] [address] DHPM [facility] [address] [place] [address] documented in this encounter Visit Diagnoses Diagnosis [...] Total Score: 2 12/10/19 25 2:46 PM SCRATCHER documented as of this encounter Care Teams Internal Grinder Relationship Specialty Start Date End Date Renzo Andres M.D. [address] [place] [phone] PCP - General Family Medicine 04/25/23 documented as of this encounter
--- OUTSIDE RECORDS SUMMARY | 2025-06-29 22:51 | XMS_ITS | Encounter Summary ---
Author Organization [facility] Address [address] [place] [address] Care Team Providers Care Weather Algorithm Scientist Name Role Phone Renzo Andres M.D. Primary Care Provider [phone] Reason for Visit * Reason Onset Date Comments Chest Pain 06/14/2025 Encounter Details Date Type Department Care Team (Latest Contact Info) Description 06/14/2025 Clinical Communication Pedro Fatima [place] for Transplantation and Clinical Regeneration in [place], [place] [address] [place] [address] Cecile Hernandez RKatalinaNKatalina [address] [place] [phone] Chest Pain Social History Tobacco Use Types [...] things needed for daily living? No 06/12/2025 [facility] Utilities Answer Date Recorded In the past 12 months has th e electric, gas, oil, or water company threatened to shut off services in your home? No 06/12/2025 Depression Answer Date Recor ded PHQ-9 Total Score (max 27) 2 12/10 Housing Stability Answer Date Recorded What is your living situation today? I have a [facility] place to live 06/12/2025 Education Answer Date Recorded What is the highest level of school you have completed or the highest degree you have received? Some college, no degree 04/24/2019 Comments No Sex and Gender Information Value Date Recorded Sex Assigned at Female 12/26/2018 8:37 PM LEGAL RECORDS CLERK Legal Sex Female 2:43 PM LEGAL RECORDS CLERK Gender Identity Female 12/26/2018 8:37 PM LEGAL RECORDS CLERK Sexual Orientation Choose not to disclose [...] her way home, driving, and had to order puller because it was bad. PLAN I [...] of Laboratory Medicine and Pathology, [facility] in [place], [place] [address] [place] [phone] Jessica Rousseau M.B.B.S. [address] [place] [phone] 06/30/2025 11:00 AM CDT Nurse Only [facility] in [place], [place] [address] [place] [phone] Jessica Rousseau M.B.B.S. [address] [place] [phone] 06/30/2025 11:30 AM CDT [facility] in [place], [place] [address] [place] [phone] Jessica Rousseau M.B.B.S. [address] [place] [phone] 06/30/2025 3:00 PM CDT Appointment Department of Radiology, [facility], in [place], [place] [address] [place] [address] Carlee Armas APRN, C.NKatalinaPKatalina, Heaven.N.P., M.S.N. [address] [place] [phone] 07/03/2025 8:00 AM CDT Telemedicine Department of Palliative Care in [place], [place] [address] [place] [phone] Yary Landa D.O. [address] [place] [phone] 07/15/2025 9:00 AM CDT Telemedicine [facility]ravind [facility] for Transplantation and Clinical Regeneration in [place], [place] [address] [place] [phone] Jessica Rousseau M.B.B.S. [address] [place] [phone] 08/11/2025 9:00 AM CDT Nurse Only Section of Infectious Diseases in [place], [place] [address] [place] [phone] Jessica Rousseau M.B.B.S. [address] [place] [phone] 08/11/2025 10:20 AM CDT Comprehensive Visit Division of Gastroenterology in [place], [place] [address] [place] [phone] Jessica Rousseau M.B.B.S. [address] [place] [phone] documented as of this encounter Visit Diagnoses Not on filedocumented in this encounter Additional Health Concerns Infection Onset Date Last Indicated Resolved Time Protective Environment 03/02/2023 03/02/2023 Assessment Noted Time PHQ-9 Depression Total Score: 2 12/10/19 25 2:46 PM LEGAL RECORDS CLERK documented as of this encounter Care Teams Weather Algorithm Scientist Relationship Specialty Start Date End Date Renzo Andres M.D. [address] [place] [address] [place] [phone] PCP - General Family Medicine 04/25/23 documented as of this encounter
--- OUTSIDE RECORDS SUMMARY | 2025-06-29 22:51 | XMS_ITS | Encounter Summary ---
Author Organization [facility] Address [address] [place] [address] Care Team Providers Care Cap Blocker Name Role Phone Renzo Andres M.D. Primary Care Provider Reason for Referral * Specialty Diagnoses / Procedures Referred By Estefania acosta Referred To Contact Diagnoses Transplant Stem Cell (HCC) RST [facility] [address] [place] [address] Phone: tel: [facility] Referral ID Status Reason Start Date Expiration Date Visits Re quested Visits Authorized Scheduling Instructions Please schedule on 06/07 at noon BW,Exam Encounter Details Date Type Department Care Team (Late st Contact Info) Description 06/06/2025 Orders Only [facility], [facility], [facility], Ninth Floor [address] [place] [address] Romina Garsia, R.N. Transplant Stem [...] [facility] 05/28/2025 Education Answer Date Recorded What is the highest level of school you have completed or the highest degree you have received? Some college, no degree 04/24/2019 Comments No Sex and Gender Information Value Date Recorded Sex Assigned at Female 12/26/2018 8:37 PM VICE PRESIDENT UNDERWRITING Legal Sex Female 2:43 PM VICE PRESIDENT UNDERWRITING Gender Identity Female 12/26/2018 8:37 PM VICE PRESIDENT UNDERWRITING Sexual Orientation Choose not to disclose 2020 3:46 PM CDT documented as of this encounter Plan of Treatment Upcoming Encounters Date Type Department Care Team (Latest Contact Info) Description 06/30/2025 10:20 AM CDT Lab Department of Laboratory Medicine and Pathology, [facility], in [place], [place] [address] [place] [phone] Jessica Rousseau M.B.B.S. [address] [place] [phone] 06/30/2025 11:00 AM CDT Nurse Only Pedro [facility] for Transplantation and Clinical Regeneration in [place], [place] [address] [place] [phone] Jessica Rousseau M.B.B.S. [address] [place] [phone] 06/30/2025 11:30 AM CDT Office Visit [facility] Transplantation and Clinical Regeneration in [place], [place] [address] [place] [phone] Jessica Rousseau M.B.B.S. [address] [place] [phone] 06/30/2025 3:00 PM CDT Appointment Department of Radiology, [facility], in [place], [place] [address] [place] [phone] Carlee Armas APRN, C.N.P., D.N.P., M.S.N. [address] [place] [phone] 07/03/2025 8:00 AM CDT Telemedicine Department of Palliative Care in [place], [place] [address] [place] [phone] Yary Landa D.O. [address] [place] [phone] 07/15/2025 9:00 AM CDT Telemedicine [facility] in [place], [place] [address] [place] [address] Jessica Rousseau M.B.B.S. [address] [place] [phone] 08/11/2025 9:00 AM CDT Nurse Only Section of Infectious Diseases in [place], [place] [address] [place] [phone] Jessica Rousseau M.B.B.S. [address] [place] [phone] 08/11/2025 10:20 AM CDT Comprehensive Visit Division of Gastroenterology in [place], [place] [address] [place] [phone] Jessica Rousseau M.B.B.S. [address] [place] [phone] Scheduled Referrals Name Type Priority Associated Diagnoses [...] Total Score: 2 12/10/19 25 2:46 PM VICE PRESIDENT UNDERWRITING documented as of this encounter Care Teams Cap Blocker Relationship Specialty Start Date End Date Renzo Andres M.D. [address] [place] [phone] PCP - General Family Medicine 04/25/23 documented as of this encounter
--- OUTSIDE RECORDS SUMMARY | 2025-06-29 22:51 | XMS_ITS | Encounter Summary ---
Author Organization [facility] Address [address] [place] [address] Care Team Providers Care Retail Business Development Manager Name Role Phone Renzo Andres M.D. [...] needed for daily living? No 06/12/2025 [facility] Utilities Answer Date Recorded In the past 12 months has th [employer] electric, gas, oil, or water company threatened to shut off services in your home? No 06/12/2025 Depression Answer Date Recor ded PHQ-9 Total Score (max 27) 2 12/10 Housing Stability Answer Date Recorded What is your living situation today? I have a [facility] place to live 06/12/2025 Education Answer Date Recorded What is the highest level of school you have completed or the highest degree you have received? Some college, no degree 04/24/2019 Comments No Sex and Gender Information Value Date Recorded Sex Assigned at Female 12/26/2018 8:37 PM EDUCATIONAL ASSISTANT Legal Sex Female 2:43 PM EDUCATIONAL ASSISTANT Gender Identity Female 12/26/2018 8:37 PM EDUCATIONAL ASSISTANT Sexual Orientation Choose not to disclose 2020 3:46 PM CDT documented as of this encounter Plan of Treatment Upcoming Encounters Date Type Department Care Team (Latest Contact Info) Description 06/30/2025 10:20 AM CDT Lab Department of Laboratory Medicine and Pathology, [facility] in [place], [place] [address] [place] [address] Jessica Rousseau M.B.B.S. [address] [place] [phone] 06/30/2025 11:00 AM CDT Nurse Only Pedro Fatima [place] for Transplantation and Clinical Regeneration in [place], [place] [address] [place] [phone] Jessica Rousseau M.B.B.S. 200 [place] [address] 06/30/2025 11:30 AM CDT Office Visit [facility] for Transplantation and Clinical Regeneration in [place], [place] [address] [place] [address] Jessica Rousseau M.B.B.S. [address] [place] [phone] 06/30/2025 3:00 PM CDT Appointment Department of Radiology, [facility], in [place], [place] [address] [place] [address] Carlee Armas APRN, C.N.P., D.N.P., M.S.N. [address] [place] [phone] 07/03/2025 8:00 AM CDT Telemedicine Department of Palliative Care in [place], [place] [address] [place] [address] Yary Landa D.O. [address] [place] [phone] 07/15/2025 9:[address] [facility] Transplantation and Clinical Regeneration in [place], [place] [address] [place] [address] Jessica Rousseau M.B.B.S. [address] [place] [phone] 08/11/2025 9:00 AM CDT Nurse Only Section of Infectious Diseases in [place], [place] [address] [place] [phone] Jessica Rousseau M.B.B.S. [address] [place] [phone] 08/11/2025 10:20 AM CDT Comprehensive Visit Division of Gastroenterology in [place], [place] [address] [place] [address] Jessica Rousseau M.B.B.S. [address] [place] [address] documented as of this encounter Visit Diagnoses Not on filedocumented in this encounter Additional Health Concerns Infection Onset Date Last Indicated Resolved Time Protective Environment 03/02/2023 03/02/2023 Assessment Noted Time PHQ-9 Depression Total Score: 2 12/10/19 25 2:46 PM EDUCATIONAL ASSISTANT documented as of this encounter Care Teams Retail Business Development Manager Relationship Specialty Start Date End Date Renzo Andres M.D. [address] [place] [phone] PCP - General Family Medicine 04/25/23 documented as of this encounter
--- OUTSIDE RECORDS SUMMARY | 2025-06-29 22:51 | XMS_ITS | Encounter Summary ---
Author Organization [facility] Address [address] [place] [address] Care Team Providers Care Production Expediter Name Role Phone Renzo Andres M.D. 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 [address] [place] [phone] Phone: tel: fax: Referral ID Status Reason Start Date Expiration Date V isits Requested Visits Authorized [id number] Authorized 06/01/2025 12/12/2025 1 1 Encounter Details Date Type Department Care Team (Late st Contact Info) Description 06/13/2025 Orders Only [facility], Ninth Floor [address] [place] [address] Analia Carter APRN, C.N.P. 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 No 06/24/2025 Depression Answer Date Recor ded PHQ-9 Total Score (max 27) 2 12/10 Housing Stability Answer Date Recorded What is your living situation today? I have a [facility] place to live 06/24/2025 Education Answer Date Recorded What is the highest level of school you have completed or the highest degree you have received? Some college, no degree 04/24/2019 Comments No Sex and Gender Information Value Date Recorded Sex Assigned at Female 12/26/2018 8:[address] CONSULTANT Legal Sex Female 2:[address] CONSULTANT Gender Identity Female 12/26/2018 8:[address] CONSULTANT Sexual Orientation Choose not to disclose 2020 3:46 PM CDT documented as of this encounter Plan of Treatment Upcoming Encounters Date Type Department Care Team (Latest Contact Info) Description 06/30/2025 10:20 AM CDT Lab Department of Laboratory Medicine and Pathology, [facility] in [place], [place] [address] [place] [phone] Jessica Rousseau M.B.B.S. [address] [place] [phone] 06/30/2025 11:00 AM CDT Nurse Only [facility] Transplantation and Clinical Regeneration in [place], [place] [address] [place] [phone] Jessica Rousseau M.B.B.S. [address] [place] [phone] 06/30/2025 11:30 AM CDT Office Visit [facility] Transplantation and Clinical Regeneration in [place], [place] [address] [place] [address] Jessica Rousseau M.B.B.S. [address] [place] [phone] 06/30/2025 3:00 PM CDT Appointment Department of Radiology, [facility], in [place], [place] [address] [place] [phone] Carlee Armas APRN, C.N.P., D.N.P., M.S.N. [address] [place] [phone] 07/03/2025 8:00 AM CDT Telemedicine Department of Palliative Care in [place], [place] [address] [place] [phone] Yary Landa D.O. [address] [place] [phone] 07/15/2025 9:00 AM CDT Telemedicine [facility] for Transplantation and Clinical Regeneration in [place], [place] [address] [place] [phone] Jessica Rousseau M.B.B.S. [address] [place] [phone] 08/11/2025 9:00 AM CDT Nurse Only Section of Infectious Diseases in [place], [place] [address] [place] [phone] Jessica Rousseau M.BKatalinaB.S. [address] [place] [phone] 08/11/2025 10:20 AM CDT Comprehensive Visit Division of Gastroenterology in [place], [place] [address] [place] [phone] Jessica Rousseau M.B.B.S. 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 [address] [place] [address] [place] [phone] PCP - General Family Medicine 04/25/23 documented as of this encounter
--- OUTSIDE RECORDS SUMMARY | 2025-06-29 22:51 | XMS_ITS | Encounter Summary ---
Author Organization [facility] Address [address] [place] [address] Care Team Providers Care Director Life Sciences Name Role Phone Renzo Andres M.D. 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 [address] [place] [address] Phone: tel: fax: [facility] Referral ID Status Reason Start Date Expiration Date Visits Re quested Visits Authorized [id number] Closed 06/05/2025 09/05/2026 1 1 Reason for Visit * Reason Onset Date Comments Phone Contact 06/05/2025 CT Results Encounter Details Date Type Department Care Team (Latest Contact Info) Description 06/05/2025 Clinical Communication Pedro Fatima [place] for Transplantation and Clinical Regeneration in [place], [place] [address] [place] [address] Jessica Rousseau M.B.B.S. [address] [place] [address] Phone Contact (CT Results) Social History Tobacco Use Types Packs/Day Years Used Date Smoking Tobacco: Never Smokeless Tobacco: Never Alcohol Use Standard Drinks/Week Comments Yes 0 (1 standard drink = 0.6 oz pur e alcohol) social [facility] Utilities Answer Date Recorded In the past 12 months has e [employer], gas, oil, or water [employer] threatened to shut off services in your [...] your living situation today? I have a [facility] place to live 05/28/2025 Education Answer Date Recorded What is the highest level of school you have completed or the highest degree you have received? Some college, no degree 04/24/2019 Comments No Sex and Gender Information Value Date Recorded Sex Assigned at Female 12/26/2018 8:37 PM OFFSET DUPLICATING MACHINE OPERATOR Legal Sex Female 2:43 PM OFFSET DUPLICATING MACHINE OPERATOR Gender Identity Female 12/26/2018 8:37 PM OFFSET DUPLICATING MACHINE OPERATOR Sexual Orientation Choose not to disclose 2020 3:46 PM CDT documented as of this encounter Plan of Treatment Upcoming Encounters Date Type Department Care Team (Latest Contact Info) Description 06/30/2025 10:20 AM CDT Lab Department of Laboratory Medicine and Pathology, [facility] in [place], [place] [address] [place] [phone] Jessica Rousseau M.B.B.S. [address] [place] [phone] 06/30/2025 11:00 AM CDT Nurse Only Pedro sanchez [facility] for Transplantation and Clinical Regeneration in [place], [place] [address] [place] [phone] Jessica Rousseau M.B.B.S. [address] [place] [phone] 06/30/2025 11:30 AM CDT Office [facility] in [place], [place] [address] [place] [phone] Jessica Rousseau M.B.B.S. [address] [place] [phone] 06/30/2025 3:00 PM CDT Appointment Department of Radiology, [facility], in [place], [place] [address] [place] [phone] Carlee Armas APRN, C.N.P., D.N.P., M.S.N. [address] [place] [phone] 07/03/2025 8:00 AM CDT Telemedicine Department of Palliative Care in [place], [place] [address] [place] [phone] Yary Landa D.O. [address] [place] [phone] 07/15/2025 9:00 AM CDT Telemedicine [facility] for Transplantation and Clinical Regeneration in [place], [place] [address] [place] [phone] Jessica Rousseau M.B.B.S. [address] [place] [phone] 08/11/2025 9:00 AM CDT Nurse Only Section of Infectious Diseases in [place], [place] [address] [place] [phone] Jessica Rousseau M.B.B.S. [address] [place] [phone] 08/11/2025 10:20 AM CDT Comprehensive Visit Division of Gastroenterology in [place], [place] [address] [place] [phone] Jessica Rousseau M.B.B.S. 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 [address] [place] [address] Aaliyah Hansen, SUNNY [phone] PCP - General Family Medicine 04/25/23 documented as of this encounter
--- OUTSIDE RECORDS SUMMARY | 2025-06-29 22:52 | XMS_ITS | Encounter Summary ---
Author Organization [facility] Address [address] [place] [address] Care Team Providers Care Rand Butting Machine Operator Name Role Phone Renzo Andres M.D. Primary Care Provider [phone] Encounter Details Date Type Department Care Team (Late st Contact Info) Description 05/28/2025 Orders Only [facility], Ninth Floor [address] [place] [phone] Giselle Jean RKatalinaNKatalina Transplant Stem Cell (HCC) [...] things needed for daily living? No 06/12/2025 [facility] Utilities Answer Date Recorded In the past 12 months has th e electric, gas, oil, or water company threatened to shut off services in your home? No 06/12/2025 Depression Answer Date Recor ded PHQ-9 Total Score (max 27) 2 12/10 Housing Stability Answer Date Recorded What is your living situation today? I have a [facility] place to live 06/12/2025 Education Answer Date Recorded What is the highest level of school you have completed or the highest degree you have received? Some college, no degree 04/24/2019 Comments No Sex and Gender Information Value Date Recorded Sex Assigned at Female 12/26/2018 8:37 PM TUBE WINDER HAND Legal Sex Female 2:43 PM TUBE WINDER HAND Gender Identity Female 12/26/2018 8:37 PM TUBE WINDER HAND Sexual Orientation Choose not to disclose 2020 3:46 PM CDT documented as of this encounter Plan of Treatment Upcoming Encounters Date Type Department Care Team (Latest Contact Info) Description 06/30/2025 10:20 AM CDT Lab Department of Laboratory Medicine and Pathology, [facility] in [place], [place] 200 [place] [address] Jessica Rousseau M.B.B.S. 200 [place] [address] 06/30/2025 11:00 AM CDT Nurse Only Pedro Myla laura [facility] Transplantation and Clinical Regeneration in [place], [place] [address] [place] [phone] Jessica Rousseau M.B.B.S. [address] [place] [phone] 06/30/2025 11:30 AM CDT Office Visit [facility] Transplantation and Clinical Regeneration in [place], [place] [address] [place] [phone] Jessica Rousseau M.B.B.S. [address] [place] [phone] 06/30/2025 3:00 PM CDT Appointment Department of Radiology, [facility], in [place], [place] [address] [place] [phone] Carlee Armas APRN, C.N.P., D.N.P., M.S.N. [address] [place] [phone] 07/03/2025 8:00 AM CDT Telemedicine Department of Palliative Care in [place], [place] [address] [place] [phone] Yary Landa, Cesar [address] [place] [phone] 07/15/2025 9:00 AM CDT Telemedicine [facility] Transplantation and Clinical Regeneration in [place], [place] [address] [place] [phone] Jessica Rousseau M.B.B.S. [address] [place] [phone] 08/11/2025 9:00 AM CDT Nurse Only Section of Infectious Diseases in [place], [place] [address] [place] [address] Jessica Rousseau M.B.B.S. [address] [place] [phone] 08/11/2025 10:20 AM CDT Comprehensive Visit Division of Gastroenterology in [place], [place] [address] [place] [address] Jessica Rousseau M.B.B.S. [address] [place] [phone] documented as of this encounter Visit Diagnoses Diagnosis Transplant Stem Cell (HCC)- Primary documented in this encounter Additional Health Concerns Infection Onset Date Last Indicated Resolved Time Protective Environment 03/02/2023 03/02/2023 Assessment Noted Time PHQ-9 Depression Total Score: 2 12/10/19 25 2:46 PM TUBE WINDER HAND documented as of this encounter Care Teams Rand Butting Machine Operator Relationship Specialty Start Date End Date Renzo Andres M.D. [address] [place] [phone] PCP - General Family Medicine 04/25/23 documented as of this encounter
--- OUTSIDE RECORDS SUMMARY | 2025-06-29 22:52 | XMS_ITS | Encounter Summary ---
Author Organization [facility] Address [address] [place] [address] Care Team Providers Care Biologics Specialist Name Role Phone Renzo Andres M.D. Primary Care Provider Encounter Details Date Type Department Care Team (Late st Contact Info) Description 05/27/2025 Orders Only Department of Palliative Care in [place], [place] [address] [place] [phone] Felicia Watt, KARON, C.N.P., M.S.N. [address] [place] [phone] Social History Tobacco Use Types Packs/Day Years [...] Sex Assigned at Female 12/26/2018 8:37 PM BUS COMPANY MANAGER Legal Sex Female 2:43 PM BUS COMPANY MANAGER Gender Identity Female 12/26/2018 8:37 PM BUS COMPANY MANAGER Sexual Orientation Choose not to disclose 2020 3:46 PM CDT documented as of this encounter Plan of Treatment Upcoming Encounters Date Type Department Care Team (Latest Contact Info) Description 06/30/2025 10:20 AM CDT Lab Department of Laboratory Medicine and Pathology, [facility] in [place], [place] 200 [place] [address] Jessica Rousseau M.B.B.S. 200 [place] [address] 06/30/2025 11:00 AM CDT Nurse Only [facility] Transplantation and Clinical Regeneration in [place], [place] [address] [place] [phone] Jessica Rousseau M.B.B.S. [address] [place] [phone] 06/30/2025 11:30 AM CDT Office Visit [facility] Transplantation and Clinical Regeneration in [place], [place] [address] [place] [phone] Jessica Rousseau M.B.B.S. [address] [place] [phone] 06/30/2025 3:00 PM CDT Appointment Department of Radiology, [facility], in [place], [place] [address] [place] [phone] Carlee Armas APRN, C.N.P., D.N.P., M.S.N. [address] [place] [phone] 07/03/2025 8:00 AM CDT Telemedicine Department of Palliative Care in [place], [place] [address] [place] [phone] Yary Landa D.O. [address] [place] [phone] 07/15/2025 9:00 AM CDT Telemedicine [facility] Transplantation and Clinical Regeneration in [place], [place] [address] [place] [phone] Jessica Rousseau M.B.B.S. [address] [place] [phone] 08/11/2025 9:00 AM CDT Nurse Only Section of Infectious Diseases in [place], [place] [address] [place] [address] Jessica Rousseau M.B.B.S. [address] [place] [phone] 08/11/2025 10:20 AM CDT Comprehensive Visit Division of Gastroenterology in [place], [place] [address] [place] [address] Jessica Rousseau M.B.B.S. [address] [place] [phone] documented as of this encounter Visit Diagnoses Not on filedocumented in this encounter Additional Health Concerns Infection Onset Date Last Indicated Resolved Time Protective Environment 03/02/2023 03/02/2023 Assessment Noted Time PHQ-9 Depression Total Score: 2 12/10/19 25 2:46 PM BUS COMPANY MANAGER documented as of this encounter Care Teams Biologics Specialist Relationship Specialty Start Date End Date Renzo Andres M.D. [address] [place] [phone] PCP - General Family Medicine 04/25/23 documented as of this encounter
--- OUTSIDE RECORDS SUMMARY | 2025-06-29 22:52 | XMS_ITS | Encounter Summary ---
Author Organization [facility] Address [address] [place] [address] Care Team Providers Care Die Maker Electronic Name Role Phone Renzo Andres M.D. Primary Care Provider [phone] Encounter Details Date Type Department Care Team (Late st Contact Info) Description 05/31/2025 Clinical Communication [facility], Ninth Floor [address] [place] [phone] Jennyfer Santos R.NKatalina Social History Tobacco Use Types Packs/Day Years Used Date Smoking Tobacco: Never Smokeless Tobacco: Never Alcohol Use Standard Drinks/Week Comments Yes 0 (1 standard drink = 0.6 oz pur e alcohol) social [facility] Utilities Answer Date Recorded In the past 12 months has e [employer], gas, oil, or water [employer] threatened to shut off services in your [...] Sex Assigned at Female 12/26/2018 8:37 PM PROGRAMMING COORDINATOR Legal Sex Female 2:43 PM PROGRAMMING COORDINATOR Gender Identity Female 12/26/2018 8:37 PM PROGRAMMING COORDINATOR Sexual Orientation Choose not to disclose [...] Pathology, [facility], in [place], [place] [address] [place] [address] Jessica Rousseau M.B.B.S. [address] [place] [phone] 06/30/2025 11:00 AM CDT Nurse Only [facility] Transplantation and Clinical Regeneration in [place], [place] [address] [place] [phone] Jessica Rousseau M.B.B.S. [address] [place] [phone] 06/30/2025 11:30 AM CDT Office Visit [facility] Transplantation and Clinical Regeneration in [place], [place] [address] [place] [phone] Jessica Rousseau M.B.B.S. [address] [place] [phone] 06/30/2025 3:00 PM CDT Appointment Department of Radiology, [facility], in [place], [place] [address] [place] [phone] Carlee Armas APRN, Satnam.N.P., D.N.P., M.S.N. [address] [place] [phone] 07/03/2025 8:00 AM CDT Telemedicine Department of Palliative Care in [place], [place] [address] [place] [address] Yary Landa D.O. [address] [place] [phone] 07/15/2025 9:00 AM CDT Telemedicine Pedro Aravind [facility] for Transplantation and Clinical Regeneration in [place], [place] [address] [place] [address] Jessica Rousseau M.B.B.S. [address] [place] [phone] 08/11/2025 9:00 AM CDT Nurse Only Section of Infectious Diseases in [place], [place] [address] [place] [address] Jessica Rousseau M.B.B.S. [address] [place] [phone] 08/11/2025 10:20 AM CDT Comprehensive Visit Division of Gastroenterology in [place], [place] [address] [place] [address] Jessica Rousseau M.B.B.S. [address] [place] [phone] documented as of this encounter Visit Diagnoses Not on filedocumented in this encounter Additional Health Concerns Infection Onset Date Last Indicated Resolved Time Protective Environment 03/02/2023 03/02/2023 Assessment Noted Time PHQ-9 Depression Total Score: 2 12/10/19 25 2:46 PM PROGRAMMING COORDINATOR documented as of this encounter Care Teams Die Maker Electronic Relationship Specialty Start Date End Date Renzo Andres M.D. [address] [place] [phone] PCP - General Family Medicine 04/25/23 documented as of this encounter
--- OUTSIDE RECORDS SUMMARY | 2025-06-29 22:52 | XMS_ITS ---
Author Organization [facility] Address [address] [place] [address] Care Team Providers Care Account Services Coordinator Name Role Phone Renzo Andres M.D. Primary Care Provider [phone] Active Problems * This document contains information [...] RSV: MMR: Local Lab/Provider: Dr. Ermelinda Pierre [address] [address] Problem Noted Date Diagnosed Date Abdominal Pain [...] 05/11/2025 No medications scheduled. Therapy Complete Tiffani Leryo APRN, C.N.P., D.N.P. 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
--- OUTSIDE RECORDS SUMMARY | 2025-06-29 22:52 | XMS_ITS | Encounter Summary ---
Author Organization [facility] Address [address] [place] [address] Care Team Providers Care Post Partum Nurse Name Role Phone Renzo Andres M.D. Primary Care Provider Reason for Visit * Reason Onset Date Comments 06/25 appts 05/20/2025 Encounter Details Date Type Department Care Team (Latest Contact Info) Description 05/20/2025 Clinical [facility] in [place], [place] [address] [place] [address] Jessica Rousseau M.B.B.S. [address] [place] [phone] 06/25 appts Social History Tobacco Use Types [...] things needed for daily living? No 06/12/2025 [facility] Utilities Answer Date Recorded In the past 12 months has e electric, gas, oil, or water [employer] threatened to shut off services in your home? No 06/12/2025 Depression Answer Date Recor ded PHQ-9 Total Score (max 27) 2 12/10 Housing Stability Answer Date Recorded What is your living situation today? I have a [facility] place to live 06/12/2025 Education Answer Date Recorded What is the highest level of school you have completed or the highest degree you have received? Some college, no degree 04/24/2019 Comments No Sex and Gender Information Value Date Recorded Sex Assigned at Female 12/26/2018 8:37 PM BUY BOAT OPERATOR Legal Sex Female 2:43 PM BUY BOAT OPERATOR Gender Identity Female 12/26/2018 8:37 PM BUY BOAT OPERATOR Sexual Orientation Choose not to disclose 2020 3:46 PM CDT documented as of this encounter Plan of Treatment Upcoming Encounters Date Type Department Care Team (Latest Contact Info) Description 06/30/2025 10:20 AM CDT Lab Department of Laboratory Medicine and Pathology, [facility], in [place], [place] [address] [place] [address] Jessica Rousseau M.B.B.S. [address] [place] [phone] 06/30/2025 11:00 AM CDT Nurse Only [facility] for Transplantation and Clinical Regeneration in [place], [place] [address] [place] [address] Jessica Rousseau M.B.B.S. [address] [place] [phone] 06/30/2025 11:30 AM CDT Office Visit [facility] Transplantation and Clinical Regeneration in [place], [place] [address] [place] [phone] Jessica Rousseau M.B.B.S. [address] [place] [phone] 06/30/2025 3:00 PM CDT Appointment Department of Radiology, [facility], in [place], [place] [address] [place] [address] Carlee Armas APRN, C.N.P., D.N.P., M.S.N. [address] [place] [phone] 07/03/2025 8:00 AM CDT Telemedicine Department of Palliative Care in [place], [place] [address] [place] [phone] Yary Landa D.O. [address] [place] [phone] 07/15/2025 9:00 AM CDT Telemedicine [facility] Transplantation and Clinical Regeneration in [place], [place] [address] [place] [phone] Jessica Rousseau M.B.B.S. [address] [place] [phone] 08/11/2025 9:00 AM CDT Nurse Only Section of Infectious Diseases in [place], [place] [address] [place] [address] Jessica Rousseau M.B.B.S. [address] [place] [phone] 08/11/2025 10:20 AM CDT Comprehensive Visit Division of Gastroenterology in [place], [place] [address] [place] [address] Jessica Rousseau M.B.B.S. [address] [place] [phone] documented as of this encounter Visit Diagnoses Not on filedocumented in this encounter Additional Health Concerns Infection Onset Date Last Indicated Resolved Time Protective Environment 03/02/2023 03/02/2023 Assessment Noted Time PHQ-9 Depression Total Score: 2 12/10/19 25 2:46 PM BUY BOAT OPERATOR documented as of this encounter Care Teams Post Partum Nurse Relationship Specialty Start Date End Date Renzo Andres M.D. [address] [place] [phone] PCP - General Family Medicine 04/25/23 documented as of this encounter
--- OUTSIDE RECORDS SUMMARY | 2025-06-29 22:52 | XMS_ITS | Encounter Summary ---
Author Organization [facility] Address [address] [place] [address] Care Team Providers Care Briar Cutter Name Role Phone Renzo Andres M.D. Primary Care Provider Encounter Details Date Type Department Care Team (Latest Contact Info) Description 05/26/2025 Clinical Communication Pedro Nazario [facility] for Transplantation and Clinical Regeneration in [place], [place] [address] [place] [phone] Jessica Rousseau M.B.B.S. [address] [place] [address] Social History Tobacco Use Types Packs/Day Years Used Date Smoking Tobacco: Never Smokeless Tobacco: Never Alcohol Use Standard Drinks/Week Comments Yes 0 (1 standard drink = 0.6 oz pur e alcohol) social [facility] Utilities Answer Date Recorded In the [...] Sex Assigned at Female 12/26/2018 8:37 PM REIMBURSEMENT REPRESENTATIVE Legal Sex Female 2:43 PM REIMBURSEMENT REPRESENTATIVE Gender Identity Female 12/26/2018 8:37 PM REIMBURSEMENT REPRESENTATIVE Sexual Orientation Choose not to disclose 2020 3:46 PM CDT documented as of this encounter Miscellaneous Notes * Telephone Encounter - Tara Marin R.N., BMT-CN - 05/28/2025 2:20 PM CDT Information Discussed Called patient and informed her, per Dr. Rousseau, that she will be admitted for workup. She stated she would be to [place] around 330 or 4 PLAN Information/Education: patient/caller [...] Medicine and Pathology, [facility], in [place], [place] [address] [place] [phone] Jessica Rousseau M.B.B.S. [address] [place] [phone] 06/30/2025 11:00 AM CDT Nurse Only [facility] Transplantation and Clinical Regeneration in [place], [place] [address] [place] [phone] Jessica Rousseau M.B.B.S. [address] [place] [phone] 06/30/2025 11:30 AM CDT Office Visit [facility] Transplantation and Clinical Regeneration in [place], [place] [address] [place] [phone] Jessica Rousseau M.B.B.S. [address] [place] [phone] 06/30/2025 3:00 PM CDT Appointment Department of Radiology, [facility], in [place], [place] [address] [place] [phone] Carlee Armas APRN, C.N.P., D.N.P., M.S.N. [address] [place] [phone] 07/03/2025 8:00 AM CDT Telemedicine Department of Palliative Care in [place], [place] [address] [place] [phone] Yary Landa D.O. [address] [place] [phone] 07/15/2025 9:00 AM CDT Telemedicine [facility] for Transplantation and Clinical Regeneration in [place], [place] [address] [place] [address] Jessica Rousseau M.B.B.S. [address] [place] [phone] 08/11/2025 9:00 AM CDT Nurse Only Section of Infectious Diseases in [place], [place] [address] [place] [address] Jessica Rousseau M.B.B.S. [address] [place] [phone] 08/11/2025 10:20 AM CDT Comprehensive Visit Division of Gastroenterology in [place], [place] [address] [place] [address] Jessica Rousseau M.B.B.S. [address] [place] [phone] documented as of this encounter Visit Diagnoses Not on filedocumented in this encounter Additional Health Concerns Infection Onset Date Last Indicated Resolved Time Protective Environment 03/02/2023 03/02/2023 Assessment Noted Time PHQ-9 Depression Total Score: 2 12/10/19 25 2:46 PM REIMBURSEMENT REPRESENTATIVE documented as of this encounter Care Teams Briar Cutter Relationship Specialty Start Date End Date Renzo Andres M.D. [address] [place] [phone] PCP - General Family Medicine 04/25/23 documented as of this encounter
--- OUTSIDE RECORDS SUMMARY | 2025-06-29 22:52 | XMS_ITS | Encounter Summary ---
Author Organization [facility] Address [address] [place] [address] Care Team Providers Care Compound Finisher Name Role Phone Renzo Andres M.D. Primary Care Provider [phone] Reason for Referral * Gastrointestinal (Routine) - Closed Specialty Diagnoses / Procedures Referred By Estefania t Referred To Contact Diagnoses Transplant Stem Cell (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) Procedures EGD (EsophagoGastroDuodenoscopy) Lito Pollock P.A.-C. [address] [place] [address] Phone: tel: fax: [facility] Referral ID Status Reason Start Date Expiration Date Visits Re quested Visits Authorized [id number] Closed 05/29/2025 08/29/2026 1 1 Encounter Details Date Type Department Care Team (Late st Contact Info) Description 05/29/2025 Orders Only [facility], [facility], Ninth Floor [address] [place] [phone] Lito Pollock P.A.-C. [address] [place] [phone] Leukemia Myeloid Chronic BCR/ABL Positive [...] things needed for daily living? No 06/12/2025 [facility] Utilities Answer Date Recorded In the past 12 months has [facility] electric, gas, oil, or water company threatened to shut off services in your home? No 06/12/2025 Depression Answer Date Recor ded PHQ-9 Total Score (max 27) 2 12/10 Housing Stability Answer Date Recorded What is your living situation today? I have a [facility] place to live 06/12/2025 Education Answer Date Recorded What is the highest level of school you have completed or the highest degree you have received? Some college, no degree 04/24/2019 Comments No Sex and Gender Information Value Date Recorded Sex Assigned at Female 12/26/2018 8:37 PM REPAIR TABLE OPERATOR Legal Sex Female 2:43 PM REPAIR TABLE OPERATOR Gender Identity Female 12/26/2018 8:37 PM REPAIR TABLE OPERATOR Sexual Orientation Choose not to disclose 2020 3:46 PM CDT documented as of this encounter Plan of Treatment Upcoming Encounters Date Type Department Care Team (Latest Contact Info) Description 06/30/2025 10:20 AM CDT Lab Department of Laboratory Medicine and Pathology, [facility] in [place], [place] [address] [place] [phone] Jessica Rousseau M.B.B.S. [address] [place] [phone] 06/30/2025 11:00 AM CDT Nurse Only [facility] in [place], [place] [address] [place] [phone] Jessica Rousseau M.B.B.S. [address] [place] [phone] 06/30/2025 11:30 AM CDT [facility] in [place], [place] [address] [place] [phone] Jessica Rousseau M.B.B.S. [address] [place] [phone] 06/30/2025 3:00 PM CDT Appointment Department of Radiology, [facility], in [place], [place] [address] [place] [phone] Carlee Armas APRN, C.N.P., D.N.P., M.S.N. [address] [place] [phone] 07/03/2025 8:00 AM CDT Telemedicine Department of Palliative Care in [place], [place] [address] [place] [phone] Yary Landa D.O. [address] [place] [phone] 07/15/2025 9:00 AM CDT Telemedicine [facility] for Transplantation and Clinical Regeneration in [place], [place] [address] [place] [phone] Jessica Rousseau M.B.B.S. [address] [place] [phone] 08/11/2025 9:00 AM CDT Nurse Only Section of Infectious Diseases in [place], [place] [address] [place] [phone] Jessica Rousseau M.B.B.S. [address] [place] [phone] 08/11/2025 10:20 AM CDT Comprehensive Visit Division of Gastroenterology in [place], [place] [address] [place] [phone] Jessica Rousseau M.B.B.S. [address] [place] [phone] documented as of this encounter Results * CMV DNA Detect / Quant, Plasma (06/03/2025 9:41 AM CDT) CMV DNA Detect/Quant, P Undetected Undetected IU/mL 06/03/2025 11:07 PM CDT [facility] Comment: Result in log IU/mL is Undetected. ----ADDITIONAL INFORMATION---- The quantification range of this assay is 35 to 10,000,000 IU/mL (1.54 log to 7.00 log IU/mL). Testing was performed using the lucrecia CMV test ([employer] Blood (Blood, Venous) 06/03/2025 9:41 AM CDT 06/03/2025 12:05 PM CDT Lito Pollock P.A.-C. LAB MICROBIOLOGY - BLOOD ORDER JANES Final Result Performing Organization Address City/[facility]/ZIP Co de Phone Number [facility] [address] [place] [address] [facility] [address] [place] [address] [place] [address] * Magnesium (06/03/2025 9:41 AM CDT) [facility] Magnesium, S 2.3 1.7 - 2.3 mg/dL 06/03/2025 10:41 AM CDT DTL Blood (Blood, Venous) 06/03/2025 9:41 AM CDT 06/03/2025 10:07 AM CDT Lito Pollock P.A.-C. LAB BLOOD ADD-ON Final Result Performing Organization Address [facility]/ZIP Co de Phone Number [facility] [address] [place] [address] * LD (Lactate Dehydrogenase) (06/03/2025 9:41 AM CDT) [facility] Deanna LD 152 122 - 222 U/L 06/03/2025 11:04 AM CDT DTL Blood (Blood, Venous) 06/03/2025 9:41 AM CDT 06/03/2025 10:44 AM CDT Lito Pollock P.A.-C. LAB BLOOD NON ADD-ON Final Res ult [facility] [address] [place] [address] * Comprehensive Metabolic Panel (06/03/2025 9:41 AM CDT) Pathologist [facility] Potassium, S 4.1 3.6 - 5.2 mmol/L [...] 9:41 AM CDT 06/03/2025 10:07 AM CDT us Lito Pollock P.A.-C. LAB BLOOD ADD-ON Final Result [facility] [address] [place] [address], [facility] DTL [facility] [address] [place] [address] * (ABNORMAL) CBC with Differential, Blood (06/03/2025 [...] 9:41 AM CDT 06/03/2025 9:56 AM CDT Lito Pollock P.A.-C. LAB BLOOD ADD-ON Final Result [facility] [address] [place] [address], [facility] DTL [facility] [address] [place] [address] DHPM [facility] [address] [place] [address] documented in this encounter Visit Diagnoses Diagnosis Leukemia Myeloid Chronic BCR/ABL Positive Not Having Achieved Remission (HCC)- Primary Transplant Stem Cell (HCC) documented in this encounter Additional Health Concerns Infection Onset Date Last Indicated Resolved Time Protective Environment 03/02/2023 03/02/2023 Assessment Noted Time PHQ-9 Depression Total Score: 2 12/10/19 25 2:46 PM REPAIR TABLE OPERATOR documented as of this encounter Care Teams Compound Finisher Relationship Specialty Start Date End Date Renzo Andres M.D. [address] [place] [address] [place] [phone] PCP - General Family Medicine 04/25/23 documented as of this encounter
--- OUTSIDE RECORDS SUMMARY | 2025-06-29 22:52 | XMS_ITS | Encounter Summary ---
Author Organization [facility] Address [address] [place] [address] Care Team Providers Care Foiling Machine Adjuster Name Role Phone Renzo Andres M.D. Primary Care Provider [phone] Reason for Visit * Reason Onset Date Comments Prescreen Immunization Review 05/26/2025 Encounter Details Date Type Department Care Team (Latest Contact Info) Description 05/26/2025 Clinical Communication Section of Infectious Diseases in [place], [place] [address] [place] [address] Jennifer Marx RKatalinaNKatalina [address] [place] [address] Prescreen Immunization Review Social History Tobacco Use [...] Sex Assigned at Female 12/26/2018 8:37 PM BUTTER GRADER Legal Sex Female 2:43 PM BUTTER GRADER Gender Identity Female 12/26/2018 8:37 PM BUTTER GRADER Sexual Orientation Choose not to disclose 2020 [...] and Pathology, [facility], in [place], [place] [address] [place] [phone] Jessica Rousseau M.B.B.S. [address] [place] [phone] 06/30/2025 11:00 AM CDT Nurse Only [facility] for Transplantation and Clinical Regeneration in [place], [place] [address] [place] [phone] Jessica Rousseau M.B.B.S. [address] [place] [phone] 06/30/2025 11:30 AM CDT Office Visit [facility] Transplantation and Clinical Regeneration in [place], [place] [address] [place] [phone] Jessica Rousseau M.B.B.S. [address] [place] [phone] 06/30/2025 3:00 PM CDT Appointment Department of Radiology, [facility], in [place], [place] [address] [place] [phone] Carlee Armas APRN, C.N.P., D.N.P., M.S.N. [address] [place] [phone] 07/03/2025 8:00 AM CDT Telemedicine Department of Palliative Care in [place], [place] [address] [place] [address] Yary Landa D.O. [address] [place] [phone] 07/15/2025 9:00 AM CDT Telemedicine [facility] for Transplantation and Clinical Regeneration in [place], [place] [address] [place] [phone] Jessica Rousseau M.B.B.S. [address] [place] [phone] 08/11/2025 9:00 AM CDT Nurse Only Section of Infectious Diseases in [place], [place] [address] [place] [phone] Jessica Rousseau M.B.B.S. [address] [place] [phone] 08/11/2025 10:20 AM CDT Comprehensive Visit Division of Gastroenterology in [place], [place] [address] [place] [phone] Jessica Rousseau M.B.B.S. [address] [place] [phone] documented as of this encounter Visit Diagnoses Not on filedocumented in this encounter Additional Health Concerns Infection Onset Date Last Indicated Resolved Time Protective Environment 03/02/2023 03/02/2023 Assessment Noted Time PHQ-9 Depression Total Score: 2 12/10/19 25 2:46 PM BUTTER GRADER documented as of this encounter Care Teams Foiling Machine Adjuster Relationship Specialty Start Date End Date Renzo Andres M.D. [address] [place] [address] [place] [address] PCP - General Family Medicine 04/25/23 documented as of this encounter
--- OUTSIDE RECORDS SUMMARY | 2025-06-29 22:53 | XMS_ITS | Encounter Summary ---
Author Organization [facility] Address [address] [place] [address] Care Team Providers Care Motor Builder Assembler Name Role Phone Renzo Andres M.D. Primary Care Provider Encounter Details Date Type Department Care Team (Latest Contact Info) Description 04/20/2025 Clinical Communication Pedro Nazario [facility] for Transplantation and Clinical Regeneration in [place], [place] [address] [place] [address] Tara Marin R.N., BMT-CN [address] [place] [address] Social History Tobacco Use Types Packs/Day Years Used Date Smoking Tobacco: Never Smokeless Tobacco: Never Alcohol Use Standard Drinks/Week Comments Yes 0 (1 standard drink = 0.6 oz pur e alcohol) social [facility] Utilities Answer Date Recorded In [...] Sex Assigned at Female 12/26/2018 8:37 PM TAG MARKER Legal Sex Female 2:43 PM TAG MARKER Gender Identity Female 12/26/2018 8:37 PM TAG MARKER Sexual Orientation Choose not to disclose 2020 3:46 PM CDT documented as of this encounter Miscellaneous Notes * Telephone Encounter - Tara Marin R.N., BMT-CN - 04/20/2025 3:[address] Rousseau, Outside labs from 04/20/25 are located in the Labs section of [facility]. Labs pending: none Resulted Labs: Recent Labs [...] up a video visit follow-up with an JAVA WEB ENGINEER on Ch 9 to further discuss symptoms [...] Laboratory Medicine and Pathology, [facility] in [place], [place] [address] [place] [phone] Jessica Rousseau M.B.B.S. [address] [place] [phone] 06/30/2025 11:00 AM CDT Nurse Only [facility] in [place], [place] [address] [place] [phone] Jessica Rousseau M.B.B.S. [address] [place] [phone] 06/30/2025 11:30 AM CDT [facility] in [place], [place] [address] [place] [address] Jessica Rousseau M.B.B.S. [address] [place] [phone] 06/30/2025 3:00 PM CDT Appointment Department of Radiology, [facility] in [place], [place] [address] [place] [address] Carlee Armas APRN, C.N.P., D.N.P., M.S.N. [address] [place] [phone] 07/03/2025 8:00 AM CDT Telemedicine Department of Palliative Care in [place], [place] [address] [place] [phone] Yary Landa D.O. [address] [place] [phone] 07/15/2025 9:00 AM CDT Telemedicine [facility] for Transplantation and Clinical Regeneration in [place], [place] [address] [place] [phone] Jessica Rousseau M.B.B.S. [address] [place] [phone] 08/11/2025 9:00 AM CDT Nurse Only Section of Infectious Diseases in [place], [place] [address] [place] [phone] Jessica Rousseau M.B.B.S. [address] [place] [phone] 08/11/2025 10:20 AM CDT Comprehensive Visit Division of Gastroenterology in [place], [place] [address] [place] [phone] Jessica Rousseau M.B.B.S. [address] [place] [phone] documented as of this encounter Visit Diagnoses Not on filedocumented in this encounter Additional Health Concerns Infection Onset Date Last Indicated Resolved Time Protective Environment 03/02/2023 03/02/2023 Assessment Noted Time PHQ-9 Depression Total Score: 2 12/10/19 25 2:46 PM TAG MARKER documented as of this encounter Care Teams Motor Builder Assembler Relationship Specialty Start Date End Date Renzo Andres M.D. [address] [place] [address] [place] [phone] PCP - General Family Medicine 04/25/23 documented as of this encounter
--- OUTSIDE RECORDS SUMMARY | 2025-06-29 22:53 | XMS_ITS | Encounter Summary ---
Author Organization [facility] Address [address] [place] [address] Care Team Providers Care Senior Rd Engineer Name Role Phone Renzo Andres M.D. Primary Care Provider Encounter Details Date Type Department Care Team (Latest Contact Info) Description 05/17/2025 Clinical Communication Pedro Aravind [facility] for Transplantation and Clinical Regeneration in [place], [place] [address] [place] [address] Ladonna Constantino, RKatalinaN. Social History Tobacco Use Types Packs/Day Years Used Date Smoking Tobacco: Never Smokeless Tobacco: Never Alcohol Use Standard Drinks/Week Comments Yes 0 (1 standard drink = 0.6 oz pur e alcohol) social [facility] Utilities Answer Date Recorded In the past 12 months has [facility] [employer], gas, oil, or water [employer] threatened to shut off services in your [...] your living situation today? I have a [facility] place to live 12/19/2024 Education Answer Date Recorded What is the highest level of school you have completed or the highest degree you have received? Some college, no degree 04/24/2019 Comments No Sex and Gender Information Value Date Recorded Sex Assigned at Female 12/26/2018 8:37 PM OIL WELL SERVICES FIELD SUPERVISOR Legal Sex Female 2:43 PM OIL WELL SERVICES FIELD SUPERVISOR Gender Identity Female 12/26/2018 8:37 PM OIL WELL SERVICES FIELD SUPERVISOR Sexual Orientation Choose not to disclose [...] and Pathology, [facility] in [place], [place] [address] [place] [address] Jessica Rousseau M.B.B.S. [address] [place] [phone] 06/30/2025 11:00 AM CDT Nurse Only Pedro Fatima [place] [facility] for Transplantation and Clinical Regeneration in [place], [place] [address] [place] [address] Jessica Rousseau M.B.B.S. [address] [place] [phone] 06/30/2025 11:30 AM CDT [facility] in [place], [place] [address] [place] [address] Jessica Rousseau M.B.B.S. [address] [place] [phone] 06/30/2025 3:00 PM CDT Appointment Department of Radiology, [facility], in [place], [place] [address] [place] [phone] Carlee Armas APRN, C.N.P., D.N.P., M.S.N. [address] [place] [phone] 07/03/2025 8:00 AM CDT Telemedicine Department of Palliative Care in [place], [place] [address] [place] [phone] Yary Landa D.O. [address] [place] [phone] 07/15/2025 9:00 AM CDT Telemedicine [facility] for Transplantation and Clinical Regeneration in [place], [place] [address] [place] [phone] Jessica Rousseau M.B.B.S. [address] [place] [phone] 08/11/2025 9:00 AM CDT Nurse Only Section of Infectious Diseases in [address] [phone] Jessica Rousseau M.B.B.S. [address] [place] [phone] 08/11/2025 10:20 AM CDT Comprehensive Visit Division of Gastroenterology in [address] [phone] Jessica Rousseau M.B.B.S. [address] [place] [phone] documented as of this encounter Visit Diagnoses Not on filedocumented in this encounter Additional Health Concerns Infection Onset Date Last Indicated Resolved Time Protective Environment 03/02/2023 03/02/2023 Assessment Noted Time PHQ-9 Depression Total Score: 2 12/10/19 25 2:46 PM OIL WELL SERVICES FIELD SUPERVISOR documented as of this encounter Care Teams Senior Rd Engineer Relationship Specialty Start Date End Date Renzo Andres M.D. [address] [place] [address] [place] [phone] PCP - General Family Medicine 04/25/23 documented as of this encounter
--- OUTSIDE RECORDS SUMMARY | 2025-06-29 22:53 | XMS_ITS | Encounter Summary ---
Author Organization [facility] Address [address] [place] [address] Care Team Providers Care Ticket Speculator Name Role Phone Renzo Andres M.D. Primary Care Provider Reason for Visit * Reason Onset Date Comments Flexible Sigmoidoscopy 06/29/2025 Abdominal Pain 06/29/2025 Encounter Details Date Type Department Care Team (Latest Contact Info) Description 06/29/2025 Clinical Communication Division of Hematology in [place], [place] [address] [place] [phone] Jessica Rousseau M.B.B.S. [address] [place] [phone] Flexible Sigmoidoscopy; Abdominal Pain Social History Tobacco Use Types [...] things needed for daily living? No 06/24/2025 [facility] Utilities Answer Date Recorded In the past 12 months has [employer], gas, oil, or water [employer] threatened to shut off services in your home? No 06/24/2025 Depression Answer Date Recor ded PHQ-9 Total Score (max 27) 2 12/10 Housing Stability Answer Date Recorded What is your living situation today? I have a [facility] place to live 06/24/2025 Education Answer Date Recorded What is the highest level of school you have completed or the highest degree you have received? Some college, no degree 04/24/2019 Comments No Sex and Gender Information Value Date Recorded Sex Assigned at Female 12/26/2018 8:37 PM MEDICAL PRACTICE ASSISTANT Legal Sex Female 2:43 PM MEDICAL PRACTICE ASSISTANT Gender Identity Female 12/26/2018 8:37 PM MEDICAL PRACTICE ASSISTANT Sexual Orientation Choose not to disclose 2020 3:46 PM CDT documented as of this encounter Miscellaneous Notes * Telephone Encounter - Monica Napier R.N., BMT-CN - 06/29/2025 3:56 PM CDT SUBJECTIVE CHIEF COMPLAINT / REASON FOR CALL Flexible Sigmoidoscopy and Abdominal Pain Information Discussed Called patient she said she threw up and saw a couple pills in her emesis and thought it was posaconazole and duloxetine . She took a Zofran also. Had diarrhea with some bright red blood on the tissue paper. Took an imodium. Patient states Don't you think I should be admitted as I have a lot going on Patient not crying when I spoke with her. Calm. She has not picked up Flexeril yet. PLAN Will redose posaconazole and Duloxetine Monitor stools ER ? Admit? Disposition/Recommendation: notified provider and awaiting recommendations Information/Education: patient/caller able to teach back Caller agreeable to plan of care: yes The following references were used: nursing clinical judgement * Telephone Encounter - Monica Napier R.N., BMT-CN - 06/29/2025 2:46 PM CDT SUBJECTIVE CHIEF COMPLAINT / REASON FOR CALL Flexible Sigmoidoscopy and Abdominal Pain Information Discussed Patient contacted and discussed plan verbally discussed with Dr. Rousseau. We will provide prescription for Flexeril 5 mg BID prn until she is seen in clinic tomorrow. Patient reports she just had a small soft stool with dark blood in it. PLAN Instructed her to monitor her stools until assessed in clinic tomorrow. Prescription for Flexeril 5 mg BID PRN sent to home pharmacy. Disposition/Recommendation: self-care is appropriate at this time, patient encouraged to call back with questions Information/Education: patient/caller able to teach back Caller agreeable to plan of care: yes The following references were used: nursing clinical judgement * Telephone Encounter - Monica Napier R.N., BMT-CN - 06/29/2025 12:45 PM CDT Patient called back in and wants to be seen to help manage her pain. She is using Dilaudid 2 mg every 4 hours currently with no relief. * Telephone Encounter - Monica Napier R.N., DANNI - 06/29/2025 12:14 PM CDT SUBJECTIVE CHIEF COMPLAINT / REASON FOR CALL Flexible Sigmoidoscopy and Abdominal Pain Information Discussed Patient contacted. Tearful and crying on phone. She states I feel like I need to be admitted again for pain control. States pain was improved after dismissal on 06/27/25 but pain back sharp at 7/10 in left lower quadrant. Pain is sharp. Had diarrhea last night but no stools since. Has not used anyimodium. Waves of nausea. Using compazine am/pm. Dilaudid 2 mg every 4 hours with little relief. Norectal bleeding. Some chills but no fevers. Has been having sweats. PLAN Disposition/Recommendation: notified provider and awaiting recommendations Information/Education: patient/caller able to teach back Caller agreeable to plan of care: yes The following references were used: nursing clinical judgement documented in this encounter Plan of Treatment Upcoming Encounters Date Type Department Care Team (Latest Contact Info) Description 06/30/2025 10:20 AM CDT Lab Department of Laboratory Medicine and Pathology, [facility], in [place], [place] [address] [place] [address] Jessica Rousseau M.B.B.S. [address] [place] [phone] 06/30/2025 11:00 AM CDT Nurse Only Pedro Fatima [facility] for Transplantation and Clinical Regeneration in [place], [place] [address] [place] [phone] Jessica Rousseau M.B.B.S. [address] [place] [phone] 06/30/2025 11:30 AM CDT Office Visit [facility] Transplantation and Clinical Regeneration in [place], [place] [address] [place] [address] Jessica Rousseau M.B.B.S. [address] [place] [phone] 06/30/2025 3:00 PM CDT Appointment Department of Radiology, [facility], in [place], [place] [address] [place] [address] Carlee Armas APRN, C.N.P., D.N.P., M.S.N. [address] [place] [phone] 07/03/2025 8:00 AM CDT Telemedicine Department of Palliative Care in [place], [place] [address] [place] [phone] Yary Landa D.O. [address] [place] [phone] 07/15/2025 9:00 AM CDT Telemedicine [facility] Transplantation and Clinical Regeneration in [place], [place] [address] [place] [address] Jessica Rousseau M.B.B.S. [address] [place] [phone] 08/11/2025 9:00 AM CDT Nurse Only Section of Infectious Diseases in [place], [place] [address] [place] [address] Jessica Rousseau M.B.B.S. [address] [place] [phone] 08/11/2025 10:20 AM CDT Comprehensive Visit Division of Gastroenterology in [place], [place] [address] [place] [address] Jessica Rousseau M.B.BKatalinaS. 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 [address] [place] [phone] PCP - General Family Medicine 04/25/23 documented as of this encounter
--- OUTSIDE RECORDS SUMMARY | 2025-06-29 22:53 | XMS_ITS | Encounter Summary ---
Author Organization [facility] Address [address] [place] [address] Care Team Providers Care Tariff Compiler Name Role Phone Renzo Andres M.D. Primary Care Provider Encounter Details Date Type Department Care Team (Late st Contact Info) Description 06/29/2025 Clinical Communication [facility], Ninth Floor [address] [place] [phone] Antonina Paul V., RKatalinaNKatalina Social History Tobacco Use Types Packs/Day [...] for daily living? No 06/24/2025 [facility] Utilities Answer Date Recorded In the past 12 months has th e electric, gas, oil, or water company threatened to shut off services in your home? No 06/24/2025 Depression Answer Date Recor ded PHQ-9 Total Score (max 27) 2 12/10 Housing Stability Answer Date Recorded What is your living situation today? I have a [facility] place to live 06/24/2025 Education Answer Date Recorded What is the highest level of school you have completed or the highest degree you have received? Some college, no degree 04/24/2019 Comments No Sex and Gender Information Value Date Recorded Sex Assigned at Female 12/26/2018 8:37 PM SALES DIRECTOR Legal Sex Female 2:43 PM SALES DIRECTOR Gender Identity Female 12/26/2018 8:37 PM SALES DIRECTOR Sexual Orientation Choose not to disclose 2020 3:46 PM CDT documented as of this encounter Miscellaneous Notes * Telephone Encounter - Antonina Paul V. RKatalinaN. - 06/29/2025 8:46 PM CDT Patient called to report worsening abdominal pain, stating that her prescribed Dilaudid 2 mg and Flexeril were not providing adequate relief. The on-call service was contacted and advised the patientto present to the emergency department for further evaluation and pain management. The patient agreed with the plan and stated she will proceed to the ED for assessment. documented in this encounter Plan of Treatment Upcoming Encounters Date Type Department Care Team (Latest Contact Info) Description 06/30/2025 10:20 AM CDT Lab Department of Laboratory Medicine and Pathology, [facility], in [place], [place] [address] [place] [address] Jessica Rousseau M.B.B.S. [address] [place] [phone] 06/30/2025 11:00 AM CDT Nurse Only [facility] [place] Transplantation and Clinical Regeneration in [place], [place] [address] [place] [phone] Jessica Rousseau M.B.B.S. [address] [place] [phone] 06/30/2025 11:30 AM CDT Office Visit [facility] [place] Transplantation and Clinical Regeneration in [place], [place] [address] [place] [phone] Jessica Rousseau M.B.B.S. [address] [place] [phone] 06/30/2025 3:00 PM CDT Appointment Department of Radiology, [facility], in [place], [place] [address] [place] [phone] Carlee Armas APRN, Satnam.N.P., D.N.P., M.S.N. [address] [place] [phone] 07/03/2025 8:00 AM CDT Telemedicine Department of Palliative Care in [place], [place] [address] [place] [address] Yary Landa D.O. [address] [place] [phone] 07/15/2025 9:00 AM CDT Telemedicine Pedro Aravind [facility] for Transplantation and Clinical Regeneration in [place], [place] [address] [place] [address] Jessica Rousseau M.B.B.S. [address] [place] [phone] 08/11/2025 9:00 AM CDT Nurse Only Section of Infectious Diseases in [place], [place] [address] [place] [address] Jessica Rousseau M.B.B.S. [address] [place] [phone] 08/11/2025 10:20 AM CDT Comprehensive Visit Division of Gastroenterology in [place], [place] [address] [place] [address] Jessica Rousseau M.B.B.S. [address] [place] [phone] documented as of this encounter Visit Diagnoses Not on filedocumented in this encounter Additional Health Concerns Infection Onset Date Last Indicated Resolved Time Protective Environment 03/02/2023 03/02/2023 Assessment Noted Time PHQ-9 Depression Total Score: 2 12/10/19 25 2:46 PM SALES DIRECTOR documented as of this encounter Care Teams Tariff Compiler Relationship Specialty Start Date End Date Renzo Andres M.D. [address] [place] [phone] PCP - General Family Medicine 04/25/23 documented as of this encounter
--- OUTSIDE RECORDS SUMMARY | 2025-06-29 22:53 | XMS_ITS | Encounter Summary ---
Author Organization [facility] Address [address] [place] [address] Care Team Providers Care Force Variation Equipment Tender Name Role Phone Renzo Andres M.D. Primary Care Provider [phone] Encounter Details Date Type Department Care Team (Late st Contact Info) Description 06/27/2025 Orders Only [facility], [facility], Ninth Floor [address] [place] [address] Carlee Armas APRN, C.N.P., D.N.P., M.S.N. 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 No 06/24/2025 [facility] Utilities Answer Date Recorded In the past 12 months has th [employer] electric, gas, oil, or water company threatened to shut off services in your home? No 06/24/2025 Depression Answer Date Recor ded PHQ-9 Total Score (max 27) 2 12/10 Housing Stability Answer Date Recorded What is your living situation today? I have a [facility] place to live 06/24/2025 Education Answer Date Recorded What is the highest level of school you have completed or the highest degree you have received? Some college, no degree 04/24/2019 Comments No Sex and Gender Information Value Date Recorded Sex Assigned at Female 12/26/2018 8:37 PM CHIEF QUALITY OFFICER Legal Sex Female 2:43 PM CHIEF QUALITY OFFICER Gender Identity Female 12/26/2018 8:37 PM CHIEF QUALITY OFFICER Sexual Orientation Choose not to disclose 2020 3:46 PM CDT documented as of this encounter Plan of Treatment Upcoming Encounters Date Type Department Care Team (Latest Contact Info) Description 06/30/2025 10:20 AM CDT Lab Department of Laboratory Medicine and Pathology, [facility], in [place], [place] [address] [place] [address] Jessica Rousseau M.B.B.S. [address] [place] [phone] 06/30/2025 11:00 AM CDT Nurse Only [facility] Transplantation and Clinical Regeneration in [place], [place] [address] [place] [address] Jessica Rousseau M.B.B.S. [address] [place] [phone] 06/30/2025 11:30 AM CDT Office Visit [facility] Transplantation and Clinical Regeneration in [place], [place] [address] [place] [address] Jessica Rousseau M.B.B.S. [address] [place] [phone] 06/30/2025 3:00 PM CDT Appointment Department of Radiology, [facility], in [place], [place] [address] [place] [address] Carlee Armas APRN, C.N.P., D.N.P., M.S.N. [address] [place] [phone] 07/03/2025 8:00 AM CDT Telemedicine Department of Palliative Care in [place], [place] [address] [place] [phone] Yary Landa D.O. [address] [place] [phone] 07/15/2025 9:00 AM CDT Telemedicine [facility] Transplantation and Clinical Regeneration in [place], [place] [address] [place] [address] Jessica Rousseau M.B.B.S. [address] [place] [address] 08/11/2025 9:00 AM CDT Nurse Only Section of Infectious Diseases in [place], [place] [address] [place] [address] Jessica Rousseau M.B.B.S. [address] [place] [phone] 08/11/2025 10:20 AM CDT Comprehensive Visit Division of Gastroenterology in [place], [place] [address] [place] [phone] Jessica Rousseau M.B.B.S. 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 [address] [place] [phone] PCP - General Family Medicine 04/25/23 documented as of this encounter
--- OUTSIDE RECORDS SUMMARY | 2025-06-29 22:53 | XMS_ITS | Encounter Summary ---
Author Organization [facility] Address [address] [place] [address] Care Team Providers Care Hoseman Name Role Phone Renzo Andres M.D. Primary Care Provider Reason for Visit * Reason Onset Date Comments Lab Monitoring 06/08/2025 Encounter Details Date Type Department Care Team (Latest Contact Info) Description 06/08/2025 Clinical Communication [facility] [place], [place] [address] [place] [address] Jessica Rousseau M.B.B.S. [address] [place] [address] Lab Monitoring Social History Tobacco Use Types Packs/Day Years Used Date Smoking Tobacco: Never Smokeless Tobacco: Never Alcohol Use Standard Drinks/Week Comments Yes 0 (1 standard drink = 0.6 oz pur e alcohol) social [facility] Utilities Answer Date Recorded In [...] Assigned at Female 12/26/2018 8:37 PM MANAGER INFORMATION Legal Sex Female 2:43 PM MANAGER INFORMATION Gender Identity Female 12/26/2018 8:37 PM MANAGER INFORMATION Sexual Orientation Choose not to disclose 2020 [...] and Pathology, [facility], in [place], [place] [address] [place] [address] Jessica Rousseau M.B.B.S. [address] [place] [address] 06/30/2025 11:00 AM CDT Nurse Only [facility] in [place], [place] [address] [place] [address] Jessica Rousseau M.B.B.S. [address] [place] [phone] 06/30/2025 11:30 AM CDT Office Visit [facility] in [place], [place] [address] [place] [address] Jessica Rousseau M.B.B.S. [address] [place] [phone] 06/30/2025 3:00 PM CDT Appointment Department of Radiology, [facility], in [place], [place] [address] [place] [address] Carlee Armas APRN, C.NKatalinaP., D.N.P., M.S.N. [address] [place] [phone] 07/03/2025 8:00 AM CDT Telemedicine Department of Palliative Care in [place], [place] [address] [place] [address] Yary Landa D.O. [address] [place] [phone] 07/15/2025 9:00 AM CDT Telemedicine [facility] [place] Transplantation and Clinical Regeneration in [place], [place] [address] [place] [address] Jessica Rousseau M.B.B.S. [address] [place] [phone] 08/11/2025 9:00 AM CDT Nurse Only Section of Infectious Diseases in [place], [place] [address] [place] [address] Jessica Rousseau M.B.B.S. [address] [place] [phone] 08/11/2025 10:20 AM CDT Comprehensive Visit Division of Gastroenterology in [place], [place] [address] [place] [address] Jessica Rousseau M.B.BKatalinaS. [address] [place] [address] documented as of this encounter Visit Diagnoses [...] Score: 2 12/10/19 25 2:46 PM MANAGER INFORMATION documented as of this encounter Care Teams Hoseman Relationship Specialty Start Date End Date Renzo Andres M.D. [address] [place] [phone] PCP - General Family Medicine 04/25/23 documented as of this encounter
--- OUTSIDE RECORDS SUMMARY | 2025-06-29 22:53 | XMS_ITS | Clinical Summary ---
Author Organization [facility] Address [address] [place] [address] Care Team Providers Care Simulation Educator Name Role Phone Renzo Andres M.D. Primary Care Provider [phone] Source Comments Patient records contain information from all sites at [facility]. For routine questions regarding patient records, call [phone] during business hours, M-F 8:00 AM - 5:00 PM Central Time. Record requests for emergency care only can be directed to [phone] at any time.[facility] Allergies Active Allergy Reactions Criticality [...] mg total) by mouth daily. 120 capsule Active penicillin V potassium (Veetids) 500 mg [...] 1 tablet by mouth daily. 60 tablet Active loperamide (Imodium A-D) 2 mg capsule Take 1 capsule (2 mg total) by mouth every 2 (two) hours as needed for diarrhea. Take with occurrence of diarrhea. May take up to 16 mg, or 8 doses daily. Active prochlorperazine (Compazine) 10 mg tablet Take 1 tablet (10 mg total) by mouth every 6 (six) hours as needed for nausea. 30 tablet 1 Active naloxone (Narcan) 4 mg/actuation nasal spray [...] nausea or vomiting. 20 tablet 1 Active acetaminophen (TylenoL) 325 mg tablet Take 2 tablets (650 mg total) by mouth every 4 (four) hours as needed for mild pain or score 1-3 of 10. Active alum-mag hydroxide-simeth (Maalox) 200-200-20 mg/5 mL suspension Take 30 mL by mouth every 4 (four) hours as needed for indigestion (dyspepsia). 025 Active diphenhydrAMINE (BenadryL) 25 mg capsule Take 1 capsule (25 mg total) by mouth every 6 (six) hours as needed for itching. Active ibuprofen 400 mg tablet Take 1 tablet (400 mg total) by mouth every 6 (six) hours as needed for moderate pain or score 4-6 of 10. 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 90 tablet 025 Active buprenorphine (Butrans) 5 mcg/hourIndicatio ns:Chronic Pain/Nonacute Pain Place 1 patch on the skin once a week Indication: Chronic Pain/Nonacute Pain. 4 patch 025 Active lidocaine (Lidoderm) 5 % adhesive patch,medicatedIn dications:Transpl ant Bone Marrow Allogeneic (HCC) Place 1 patch on the skin daily. Apply to affected area . 30 patch 025 Active budesonide (Entocort EC) [address] capsule Take 2 capsules (6 mg total) by mouth daily. 60 capsule 2 025 Active HYDROmorphone (Dilaudid) 1 mg/mL liquidIndications :Chronic Pain/Nonacute Pain Take 2 mL (2 mg total) by mouth every 6 (six) hours as needed for pain Indication: Chronic Pain/Nonacute Pain. 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 30 tablet 1 025 Active pantoprazole (Protonix) 40 mg EC tablet Take 1 tablet (40 mg total) by mouth 2 (two) times a day before morning and evening meals. 60 tablet 1 Active sennosides-docusa te sodium (Senokot-S) 8.6-50 mg per tablet Take 1 tablet by mouth 2 (two) times a day. 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 140 mL 025 2024 Active cyclobenzaprine (FlexeriL) 5 mg tabletIndications :Transplant Stem Cell (HCC),Pain Neuropathic,Leuke kalpana Myeloid Chronic BCR/ABL Positive Remission (HCC) Take 1 tablet (5 mg total) by mouth 2 (two) times a day as needed for muscle spasms. 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 90 tablet 025 2024 Discontinued(R eorder) HYDROmorphone (Dilaudid) 1 mg/mL liquidIndications :Chronic Pain/Nonacute Pain Take 0.5 mL (0.5 mg total) by mouth daily as needed for pain Indication: Chronic Pain/Nonacute Pain. 10 mL 025 2024 Discontinued(R eorder) buprenorphine (Butrans) 5 mcg/hourIndicatio ns:Chronic Pain/Nonacute Pain Place 1 patch on the skin once a week Indication: Chronic Pain/Nonacute Pain. 4 patch 025 2024 Discontinued(R eorder) predniSONE (Deltasone) 10 mg tablet Take 6 tablets (60 mg total) by mouth daily for 3 days, THEN 5 tablets (50 mg total) daily for 5 days. 43 tablet 05/29/20 4:28 PM CDT 025 2024 Discontinued pantoprazole (Protonix) 40 mg EC tablet Take 1 tablet (40 mg total) by mouth 2 (two) times a day before morning and evening meals. 60 tablet 1 05/29/20 25 4:28 PM CDT 2024 Discontinued budesonide (Entocort EC) [address] capsule Take 2 capsules (6 mg total) by mouth daily. 60 capsule 1 2024 Discontinued(R eorder) budesonide (Entocort EC) [address] capsule Take 2 capsules (6 mg total) by mouth daily. 60 capsule 1 2024 Discontinued predniSONE (Deltasone) 10 mg tablet Take 6 tablets (60 mg total) by mouth daily for 3 days, THEN 5 tablets (50 mg total) daily for 5 days. Please hold while on budesonide. 2024 Discontinued predniSONE (Deltasone) 10 mg tablet Take 3 tablets (30 mg total) by mouth daily for 4 days, THEN 2 tablets (20 mg total) daily for 3 days, THEN 1 tablet (10 mg total) daily for 3 days. 21 tablet 2024 Discontinued(T herapy completed) docusate sodium (Colace) 100 mg capsule Take 1 capsule (100 mg total) by mouth 2 (two) times a day. 2024 Discontinued sennosides-docusa te sodium (Senokot-S) 8.6-50 mg per tablet Take 1 tablet by mouth 2 (two) times a day as needed for constipation. 2024 Discontinued budesonide (Entocort EC) [address] capsule Take 1 capsule (3 mg total) by mouth daily. 30 capsule 2 2024 Discontinued(S top Taking at Discharge) polyethylene glycol-electrolyt es (Golytely) 236-22.74-6.74 -5.86 gram solution Take first portion of the prep at 4pm the evening before and start second portion 3 to 6 hours before and finish 2 hours prior to report time. 4000 mL 2024 Discontinued(D uplicate order) HYDROmorphone (Dilaudid) 1 mg/mL liquidIndications :Chronic Pain/Nonacute Pain Take 0.5 mL (0.5 mg total) by mouth daily as needed for pain Indication: Chronic Pain/Nonacute Pain. 10 mL 025 2024 Discontinued Active Problems Patient Care [...] RSV: MMR: Local Lab/Provider: Dr. Ermelinda Avitia [address] [address] Problem Noted Date Diagnosed Date Abdominal Pain [...] Encounters Date Type Department Care Team Description 06/29/2025 Clinical Communication [facility], Ninth Floor [address] [place] [phone] Antonina Paul R.N. 06/29/2025 Clinical Communication Division of Hematology in [place], [place] [address] [place] [phone] Jessica Rousseau M.B.B.S. 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 Abdominal Pain (Primary Dx); Transplant Stem Cell (HCC); Transplant Bone Marrow Allogeneic (HCC) 06/27/2025 Orders Only [facility], [facility], Ninth Floor [address] [place] [address] Carlee Armas APRN, C.N.Delbert, Heaven.N.P., M.S.N. 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 06/26/2025 10:25 AM CDT Ancillary Procedure Department of Gastroenterology Arrived 06/26/2025 10:20 AM CDT Ancillary Procedure Department of Gastroenterology Arrived 06/24/2025 2:59 PM CDT - 06/27/2025 12:20 PM CDT Hospital Encounter [facility], Ninth Floor [address] [place] [address] Dani Diaz M.D. 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 Vomiting; vomiting and abdominal pain 06/23/2025 10:00 AM CDT Office Visit [facility] Transplantation and Clinical Regeneration in [place], [place] [address] [place] [phone] Jessica Rousseau M.B.B.S. 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 Nelli Parker, Pharm.D., R.Ph. Transplant Stem Cell (HCC) (Primary Dx) Discharge Disposition: Home or Self Care 06/23/2025 Clinical Communication [facility] Transplantation and Clinical Regeneration in [place], [place] [address] [place] [phone] Jessica Rousseau M.B.B.S. 06/23/2025 Orders Only [facility] Renzo Andres M.D. 06/22/2025 6:56 PM CDT - 06/22/2025 11:59 PM CDT Hospital Encounter [facility], [facility], Ninth Floor [address] [place] [phone] Gabrielle Carlos P.AAmirah. 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 Transplant Stem Cell (HCC) (Primary Dx) 06/22/2025 Clinical Communication [facility] Transplantation and Clinical Regeneration in [place], [place] [address] [place] [phone] Jessica Rousseau M.B.B.S. Phone Contact (Nausea and abdominal pain) 06/22/2025 Results Follow-Up [facility] Transplantation and Clinical Regeneration in [place], [place] [address] [place] [phone] Jessica Rousseau M.B.B.S. BCR/ABL1, p210, mRNA Detection, Reverse Correspondence Representative-PCR (RT-PCR), Quantitative, Monitoring Chronic Myeloid Leukemia (CML) 06/18/2025 Clinical Communication [facility] Transplantation and Clinical Regeneration in [place], [place] [address] [place] [phone] Osiris Bass R.N., BMT-CN Phone Contact 06/17/2025 Clinical Communication [facility] Transplantation and Clinical Regeneration in [place], [place] [address] [place] [phone] Jeanna Victor Symptom Assessment 06/15/2025 2:00 PM CDT Office Visit [facility] Transplantation and Clinical Regeneration in [place], [place] [address] [place] [phone] Jessica Rousseau M.B.B.S. 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 06/15/2025 9:13 AM CDT - 06/15/2025 11:59 PM CDT Hospital Encounter [facility] in [place], [place] [address] [place] [address] Jessica Rousseau M.B.B.S. 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 Chest Pain 06/13/2025 Orders Only [facility], Ninth Floor [address] [place] [address] Analia Carter APRN, CKatalinaN.P. 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 Kumar, Shaji, M.D. Discharge Disposition: Home or Self Care 06/12/2025 Clinical Communication [facility] Transplantation and Clinical Regeneration in [place], [place] [address] [place] [address] Daniela Mercer R.N., BMT-CN Nurse Assessment; Abdominal Pain 06/10/2025 1:20 PM CDT Nurse Only Section of Infectious Diseases in [place], [place] [address] [place] [address] Jessica Rousseau M.B.B.SCarolyn Diggs R.N. Immunizations 06/10/2025 12:45 PM CDT [facility] in [place], [place] [address] [place] [address] Ta Medrano 06/08/2025 1:15 PM CDT Internal E-Consult Section of Infectious Diseases in [place], [place] [address] [place] [address] Arlen James APRN, C.N.P., Heaven.Vanessa Burk P.A.-C. Leukemia Myeloid Chronic BCR/ABL Positive Not Having Achieved Remission (HCC); Transplant Stem Cell (HCC) 06/08/2025 Orders Only [facility], Ninth Floor [address] [place] [address] Analia Carter APRN, C.N.P. 06/08/2025 Clinical Communication [facility] Clinical [facility] in [place], [place] [address] [place] [address] Jessica Rousseau M.B.B.S. Lab Monitoring 06/08/2025 Clinical Communication [facility] in [place], [place] [address] [place] [address] Jessica Rousseau M.B.B.S. 06/07/2025 11:45 AM CDT - 06/07/2025 11:59 PM CDT Hospital Encounter [facility], Ninth Floor [address] [place] [address] Analia Carter APRN, C.N.P. 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 Transplant Stem Cell (HCC) (Primary Dx) 06/06/2025 Orders Only [facility], [facility], Ninth Floor [address] [place] [address] Analia Carter APRN, C.N.PKatalina Transplant Stem Cell (HCC) (Primary Dx); Pain Pleuritic Chest 06/05/2025 8:36 AM CDT - 06/05/2025 11:59 PM CDT Hospital Encounter Department of Radiology in [address] [phone] Jessica Avila APRN, C.N.P., M.S.N. Transplant Stem Cell (HCC) Discharge Disposition: Home or Self Care 06/05/2025 Documentation [facility] Transplantation and Clinical Regeneration in [place], [place] [address] [place] [address] Jessica Avila APRN, C.N.P., M.S.N. 06/05/2025 Clinical Communication [facility] Transplantation and Clinical Regeneration in [place], [place] [address] [place] [phone] Jessica Rousseau M.B.BKatalinaSKatalina Phone Contact (CT Results) 06/03/2025 10:00 AM CDT Office Visit [facility] Transplantation and Clinical Regeneration in [place], [place] [address] [place] [phone] Tessa Jesus APRN, C.N.P., D.N.P. Jessica Avila APRN, C.N.P., M.S.N. Transplant Stem Cell (HCC) (Primary Dx) 06/02/2025 Clinical Communication [facility] in [place], [place] [address] [place] [address] Transplant, Coordinator, Sanjana Nurse Assessment 06/01/2025 1:39 PM CDT Anesthesia Event Division of Gastroenterology in [place], [place] [address] [place] [address] Isaias Tolbert APRN, CRNA Pompeian, Rochelle J, M.D. 06/01/2025 1:15 PM CDT Ancillary Procedure Department of Gastroenterology 06/01/2025 12:04 PM CDT - 06/01/2025 11:59 PM CDT Hospital Encounter Division of Gastroenterology in [place], [place] [address] [place] [address] Lito Pollock P.A.-C. Ashkar, Motaz H, M.B.B.S., M.S. Transplant Stem Cell (HCC); Leukemia Myeloid Chronic BCR/ABL Positive Not Having Achieved Remission (HCC) Discharge Disposition: Home or Self Care 05/31/2025 Clinical Communication [facility], Ninth Floor [address] [place] [phone] Jennyfer Santos R.N. 05/29/2025 Orders Only [facility], Ninth Floor [address] [place] [phone] Lito Pollock P.A.-C. 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); Transplant Stem Cell (HCC) 05/28/2025 3:39 PM CDT - 05/29/2025 4:32 PM CDT Hospital Encounter [facility], Ninth Floor [address] [place] [phone] Tanya Ivey M.D. Discharge Disposition: Home or Self Care 05/28/2025 Orders Only [facility], Ninth Floor [address] [place] [phone] Giselle Jean R.N. Transplant Stem Cell (HCC) (Primary Dx) 05/27/2025 Orders Only Department of Palliative Care in [place], [place] [address] [place] [phone] Felicia Watt APRN, C.N.P., M.S.N. 05/26/2025 Clinical Communication [facility] Transplantation and Clinical Regeneration in [place], [place] [address] [place] [phone] Jessica Rousseau M.B.B.SKatalina 05/26/2025 Clinical Communication Section of Infectious Diseases in [place], [place] [address] [place] [phone] Jennifer Marx R.N. Prescreen Immunization Review 05/25/2025 2:00 PM CDT Office Visit Department of Palliative Care in [place], [place] [address] [place] [phone] Felicia Watt APRN, C.N.P., M.S.N. Pain Leg Bilateral (Primary Dx); Nausea; Fatigue; Insomnia; Anxiety; Palliative Care 05/25/2025 1:45 PM CDT [facility] in [place], [place] [address] [place] [phone] Ta Medrano 05/20/2025 9:30 AM CDT Office Visit [facility] Transplantation and Clinical Regeneration in [place], [place] [address] [place] [phone] Lito Pollock P.A.-C. Olney, Tammy L, APRN C.N.P., D.N.P. Lida Olivas, RKatalinaN. 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 Nelli Parker, Pharm.D., R.Ph. Transplant Bone Marrow Allogeneic (HCC) (Primary Dx) Discharge Disposition: Home or Self Care 05/20/2025 Clinical Communication [facility] Transplantation and Clinical Regeneration in [place], [place] [address] [place] [address] Jessica Rousseau M.B.B.S. 06/25 appts 05/17/2025 1:59 PM CDT - 05/17/2025 5:26 PM CDT Hospital Encounter [facility], [facility], Ninth Floor [address] [place] [address] Renita Potts APRN, C.N.P., D.N.P. 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 05/17/2025 Orders Only [facility], [facility], Ninth Floor [address] [place] [address] Ladonna Constantino RKatalinaN. 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 Lab Monitoring (05/08/2025) 05/08/2025 10:30 AM CDT - 05/08/2025 11:59 PM CDT Hospital Encounter Department of Laboratory Medicine in [address] [address] Lito Pollock P.A.-C. Leukemia Myeloid Chronic BCR/ABL Positive Not Having Achieved Remission (HCC); Transplant Stem Cell (HCC); Follow Up Examination Following Bone Marrow Transplant Discharge Disposition: Home or Self Care 05/03/2025 Clinical Communication [facility], [facility], Ninth Floor [address] [place] [address] Juan Mahmood R.N. Nurse Assessment (Nausea/Vomiting ) 04/29/2025 10:00 AM CDT Office Visit [facility] Transplantation and Clinical Regeneration in [place], [place] [address] [place] [phone] Becky Hernandez APRN, C.N.P., D.N.P. Lito Pollock P.A.-C. 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 Nelli Parker, Pharm.D., R.Ph. 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 Scheduling 04/27/2025 Specialty Pharmacy [facility] [address] [place] [phone] Isabel Bautista, Pharm.D., R.Ph. 04/22/2025 10:00 AM CDT [facility] in [place], [place] [address] [place] [phone] Becky Hernandez APRN C.N.P., D.N.P. Analia Carter APRN, C.N.P. 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 04/18/2025 [facility] in [place], [place] [address] [place] [phone] Becky Hernandez APRN, C.N.P., D.N.P. Transplant Stem Cell (HCC) (Primary Dx) 04/18/2025 Clinical Communication [facility], [facility], Ninth Floor [address] [place] [phone] Jeanne Khan R.N. After Visit Question (Chronic fatigue/Leg pain) 04/18/2025 Orders Only [facility], [facility], Ninth Floor [address] [place] [phone] Becky Hernandez APRN, C.N.P., D.N.P. 04/15/2025 9:00 AM CDT Telemedicine [facility] Transplantation and Clinical Regeneration in [place], [place] [address] [place] [address] Becky Hernandez APRN, C.N.P., D.N.P. 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 Med Refill 04/14/2025 Refill Division of Hematology in [place], [place] [address] [place] [phone] Jessica Rousseau M.B.B.S. Med Refill 04/08/2025 11:30 AM CDT Office Visit [facility] in [place], [place] [address] [place] [phone] Jessica Rousseau M.B.B.S. Becky Hernandez APRN, C.N.P., D.N.P. Tara Marin, R.N., BMT-CN Karen Allen R.N., O.C.N. 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 Nurse Assessment 04/01/2025 Clinical Communication [facility] Transplantation and Clinical Regeneration in [place], [place] [address] [place] [phone] Jessica Rousseau M.B.B.S. 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); Transplant Bone Marrow Allogeneic (HCC); Abnormal Finding Of Blood Chemistry Unspecified; Follow Up Examination Following Bone Marrow Transplant; Corticosteroid Treatment Mcc Systemic from Last 3 Months Immunizations Immunization Administration [...] 2 shena martinez Psychiatric Maternal Grandfather silvia merchant Breast cancer [...] nancy Mother gabrielle martinez Alive Paternal Grandfather Grandsuzie vega Son Rashid Alive Social History Tobacco Use Types Packs/Day Years Used Date Smoking Tobacco: Never Smokeless Tobacco: Never Tobacco Cessation:Counseling Given: Not Answered Alcohol Use Standard Drinks/Week Comments Not Currently [...] living? No 06/24/2025 [facility] Utilities Answer Date Recorded In the past 12 months has e electric, gas, oil, or water company threatened to shut off services in your home? No 06/24/2025 Depression Answer Date Recor ded PHQ-9 Total Score (max 27) 2 12/10 Housing Stability Answer Date Recorded What is your living situation today? I have a [facility] place to live 06/24/2025 Education Answer Date Recorded What is the highest level of school you have completed or the highest degree you have received? Some college, no degree 04/24/2019 Comments No Sex and Gender Information Value Date Recorded Sex Assigned at Female 12/26/2018 8:37 PM PODIATRIC SURGEON Legal Sex Female 2:43 PM PODIATRIC SURGEON Gender Identity Female 12/26/2018 8:37 PM PODIATRIC SURGEON Sexual Orientation Choose not to disclose 2020 [...] Mass Index 34.47 06/25/2025 12:56 PM CDT Plan of Treatment Upcoming Encounters Date Type Department Care Team (Latest Contact Info) Description 06/30/2025 10:20 AM CDT Lab Department of Laboratory Medicine and Pathology, [facility] in [place], [place] [address] [place] [phone] Jessica Rousseau M.B.B.S. [address] [place] [phone] 06/30/2025 11:00 AM CDT Nurse [facility] in [place], [place] [address] [place] [phone] Jessica Rousseau M.B.B.S. [address] [place] [phone] 06/30/2025 11:30 AM CDT Office Visit Pedro Fatima [facility] Clinical [facility]eneration in [place], [place] [address] [place] [phone] Jessica Rousseau M.B.B.S. [address] [place] [phone] 06/30/2025 3:00 PM CDT Appointment Department of Radiology, [facility], in [place], [place] [address] [place] [address] Carlee Armas APRN, C.N.P., D.N.P., M.S.N. [address] [place] [phone] 07/03/2025 8:00 AM CDT Telemedicine Department of Palliative Care in [place], [place] [address] [place] [phone] Yary Landa D.O. [address] [place] [phone] 07/15/2025 9:00 AM CDT Telemedicine [facility] for Transplantation and Clinical Regeneration in [place], [place] [address] [place] [phone] Jessica Rousseau M.B.B.S. [address] [place] [phone] 08/11/2025 9:00 AM CDT Nurse Only Section of Infectious Diseases in [place], [place] [address] [place] [phone] Jessica Rousseau M.B.B.S. [address] [place] [phone] 08/11/2025 10:20 AM CDT Comprehensive Visit Division of Gastroenterology in [place], [place] [address] [place] [phone] Jessica Rousseau M.B.B.S. [address] [place] [phone] Health Maintenance Due Date Last Done Comments Dental Prophylaxis 1989 HIV Screening 1989 Visit: Medicare Annual Wellness 1989 Dilated Eye Exam 11/05/2009 05/06/2009 COVID-19 Vaccine (4 - 2023-2 5 season) 2024 10/31/2021, 03/30/2021, 03/02/2021 Cervical/Vaginal [...] (#2) 08/04/2025 06/10/2025 Influenza Vaccine (#1) 2025 9, 09/02/2012, 09/02/2012, Additional history exists Vaccine Post BMT: Hepatitis A 2 Doses (#2) 12/09/2025 06/10/2025 Controlled Substance Monitor ing (PHQ-9) 12/10/2025 12/10/2024 Generalized Anxiety (HERMINIO-7) 03/23/2026 03/23/2025 Spirometry with DLCO or PFT 03/23/2026 03/23/2025, 1 01/06/2024 Lipid (Cholesterol) Screening 03/24/2026, 06/23/2024, 09/08/2022 Vitamin D Testing 03/24/2026 03/24/2025, , 03/13/2022 Fasting Glucose for Diabetes Screening 06/27/2026 06/27/2025, 06/26/2025, 06/25/2025, Additional history exists Hepatitis B Screening Discontinued 12/12/2018 Hepatitis C Screening Completed 12/12/2018 Depression Monitoring (PHQ-9 for quality tracking) Completed 03/23/2025 Opioid Risk Tool (ORT) Completed 04/21/2025 Glucose Test for Med Monitoring Discontinued 06/27/2025, 06/26/2025, 06/25/2025, Additional history exists Procedures Procedure Name Priority Date/Time Associated Diagnosis Comments CBC NO CALL BACK, REFLEX T/S Routine 06/27/2025 3:50 AM CDT PHOSPHORUS (INORGANIC), S Routine 06/27/2025 3:50 AM CDT MAGNESIUM, S Routine 06/27/2025 3:50 AM CDT COMPREHENSIVE METABOLIC PANEL, S/P Routine 06/27/2025 3:50 AM CDT GASTROENTEROLOGY IMAGE EXAM Routine 06/26/2025 10:25 AM CDT GASTROENTEROLOGY IMAGE EXAM Routine 06/26/2025 10:20 AM CDT FLEXIBLE SIGMOIDOSCOPY Routine 10:17 AM CDT FLEXIBLE SIGMOIDOSCOPY Routine 10:17 AM CDT UPPER GI ENDOSCOPY Routine 06/26/2025 10:17 AM CDT EGD (ESOPHAGOGASTRODUODENO SCOPY) Routine 06/26/2025 10:17 AM CDT PROTHROMBIN TIME (PT), P Routine 06/26/2025 5:24 AM CDT CBC NO CALL BACK, REFLEX T/S Routine 06/26/2025 5:24 AM CDT COMPREHENSIVE METABOLIC PANEL, S/P Routine 06/26/2025 5:24 AM CDT US PELVIS TRANSVAGINAL AND TRANSABDOMINAL RAD - Routine (most inpatients and all outpatients) 06/25/2025 1:01 PM CDT US GALLBLADDER AND OR BILIARY DUCTS RAD - Routine (most inpatients and all outpatients) 06/25/2025 12:58 PM CDT (TTE) 2D ECHO DOPPLER COLOR Routine 06/25/2025 10:47 AM CDT HUMAN CHORIONIC GONADOTROPIN (HCG), JAGRUTI, Routine 06/25/2025 12:35 AM CDT CHIMERISM TRANSPLANT SORTED CELLS Routine 06/25/2025 12:35 AM CDT PHOSPHORUS (INORGANIC), S Routine 06/25/2025 12:35 AM CDT MAGNESIUM, S Routine 06/25/2025 12:35 AM CDT COMPREHENSIVE METABOLIC PANEL, S/P Routine 06/25/2025 12:35 AM CDT CBC WITH DIFFERENTIAL, B Routine 06/25/2025 12:[address] CHEST WITH IV CONTRAST RAD - Routine (most inpatients and all outpatients) 06/24/2025 6:[address] ABDOMEN PELVIS WITH IV CONTRAST RAD - Routine (most inpatients and all outpatients) 06/24/2025 6:16 PM CDT BCR/ABL1, P210, QUANT, MONITOR Routine 06/23/2025 8:18 AM CDT 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) Transplant Stem Cell (HCC) LACTATE DEHYDROGENASE (LD), S Routine 06/23/2025 8:18 AM CDT 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) Transplant Stem Cell (HCC) SODIUM, S/P Routine 06/23/2025 8:18 AM CDT 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) Transplant Stem Cell (HCC) POTASSIUM, S/P Routine 06/23/2025 8:18 AM CDT 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) Transplant Stem Cell (HCC) MAGNESIUM, S Routine 06/23/2025 8:18 AM CDT 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) Transplant Stem Cell (HCC) GLUCOSE, FASTING, S/P Routine 06/23/2025 8:18 AM CDT 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) Transplant Stem Cell (HCC) CREATININE WITH EGFR, S/P Routine 06/23/2025 8:18 AM CDT 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) Transplant Stem Cell (HCC) CBC NO CALL BACK, REFLEX T/S Routine 06/23/2025 8:18 AM CDT 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) Transplant Stem Cell (HCC) CALCIUM, TOT, S/P Routine 06/23/2025 8:1 8 AM CDT 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) Transplant Stem Cell (HCC) BUN (BLOOD UREA NITROGEN), S/P Routine 06/23/2025 8:18 AM CDT 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) Transplant Stem Cell (HCC) BILIRUBIN, TOT, S/P Routine 06/23/2025 8 :18 AM CDT 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) Transplant Stem Cell (HCC) ASPARTATE AMINOTRANSFERASE (AST), S/P Routine 06/23/2025 8:18 AM CDT 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) Transplant Stem Cell (HCC) ALANINE AMINOTRANSFERASE (ALT), S/P Routine 06/23/2025 8:18 AM CDT 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) Transplant Stem Cell (HCC) ALKALINE PHOSPHATASE, S/P Routine 06/23/2025 8:18 AM CDT 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) Transplant Stem Cell (HCC) ALBUMIN, S/P Routine 06/23/2025 8:18 AM CDT 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) Transplant Stem Cell (HCC) MYELOID NEOPLASMS, NGS Routine 9:50 AM CDT DNA EXTRACT AND HOLD Routine 06/15/2025 9:50 AM CDT BCR/ABL1, P210, QUANT, MONITOR Routine 06/15/2025 9:50 AM CDT CHIMERISM TRANSPLANT NO CELL SORT Routine 06/15/2025 9:50 AM CDT WA DX BONE MARROW BX & ASPIR Routine 06/15/2025 9:45 AM CDT 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) Abnormal Finding Of Blood Chemistry Unspecified Follow Up Examination Following Bone Marrow Transplant Corticosteroid Treatment Mcc Systemic HEMATOPATHOLOGY Routine 06/15/2025 12:00 AM CDT BASIC METABOLIC PANEL, S/P Routine [...] Examination Following Bone Marrow Transplant Corticosteroid Treatment Biodiesel Processing Technician Systemic CD4 T-CELL COUNT, B Routine 04/29/2025 9 :42 AM CDT 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) Abnormal Finding Of Blood Chemistry Unspecified Follow Up Examination Following Bone Marrow Transplant Corticosteroid Treatment Mcc Systemic CHIMERISM TRANSPLANT SORTED CELLS Routine 04/29/2025 9:42 AM CDT 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) LACTATE DEHYDROGENASE (LD), S Routine 04/29/2025 9:41 AM CDT Transplant Stem Cell ([facility]) SODIUM, S/P Routine 04/29/2025 9:41 AM CDT Transplant Stem Cell ([facility]) POTASSIUM, S/P Routine 04/29/2025 9:41 AM CDT Transplant Stem Cell ([facility]) MAGNESIUM, S Routine 04/29/2025 9:41 AM CDT Transplant Stem Cell ([facility]) GLUCOSE, FASTING, S/P Routine 04/29/2025 9:41 AM CDT Transplant Stem Cell ([facility]) Hyperglycemia CREATININE WITH EGFR, S/P Routine 04/29/2025 9:41 AM CDT Transplant Stem Cell (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) Abnormal Finding Of Blood Chemistry Unspecified Follow Up Examination Following Bone Marrow Transplant Corticosteroid Treatment Mcc Systemic POTASSIUM, S/P Routine 04/08/2025 11:10 AM CDT 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) Abnormal Finding Of Blood Chemistry Unspecified Follow Up Examination Following Bone Marrow Transplant Corticosteroid Treatment Mcc Systemic MAGNESIUM, S Routine 04/08/2025 11:10 AM CDT 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) Abnormal Finding Of Blood Chemistry Unspecified Follow Up Examination Following Bone Marrow Transplant Corticosteroid Treatment Mcc Systemic GLUCOSE, FASTING, S/P Routine 04/08/2025 11:10 AM CDT 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) Abnormal Finding Of Blood Chemistry Unspecified Follow Up Examination Following Bone Marrow Transplant Corticosteroid Treatment Mcc Systemic CREATININE WITH EGFR, S/P Routine 04/08/2025 11:10 AM CDT 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) Abnormal Finding Of Blood Chemistry Unspecified Follow Up Examination Following Bone Marrow Transplant Corticosteroid Treatment Mcc Systemic CBC NO CALL BACK, REFLEX T/S Routine 04/08/2025 11:10 AM CDT 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) Abnormal Finding Of Blood Chemistry Unspecified Follow Up Examination Following Bone Marrow Transplant Corticosteroid Treatment Biodiesel Processing Technician Systemic CALCIUM, TOT, S/P Routine 04/08/2025 11:10 AM CDT 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) Abnormal Finding Of Blood Chemistry Unspecified Follow Up Examination Following Bone Marrow Transplant Corticosteroid Treatment Mcc Systemic BUN (BLOOD UREA NITROGEN), S/P Routine 04/08/2025 11:10 AM CDT 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) Abnormal Finding Of Blood Chemistry Unspecified Follow Up Examination Following Bone Marrow Transplant Corticosteroid Treatment Mcc Systemic BILIRUBIN, TOT, S/P Routine 04/08/2025 11:10 AM CDT 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) Abnormal Finding Of Blood Chemistry Unspecified Follow Up Examination Following Bone Marrow Transplant Corticosteroid Treatment Biodiesel Processing Technician Systemic ASPARTATE AMINOTRANSFERASE (AST), S/P Routine 04/08/2025 11:10 AM CDT 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) Abnormal Finding Of Blood Chemistry Unspecified Follow Up Examination Following Bone Marrow Transplant Corticosteroid Treatment Mcc Systemic ALANINE AMINOTRANSFERASE (ALT), S/P Routine 04/08/2025 11:10 AM CDT 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) Abnormal Finding Of Blood Chemistry Unspecified Follow Up Examination Following Bone Marrow Transplant Corticosteroid Treatment Mcc Systemic ALKALINE PHOSPHATASE, S/P Routine 04/08/2025 11:10 AM CDT 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) Abnormal Finding Of Blood Chemistry Unspecified Follow Up Examination Following Bone Marrow Transplant Corticosteroid Treatment Biodiesel Processing Technician Systemic ALBUMIN, S/P Routine 04/08/2025 11:10 AM CDT 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) Abnormal Finding Of Blood Chemistry Unspecified Follow Up Examination Following Bone Marrow Transplant Corticosteroid Treatment Mcc Systemic CMV DNA DETECT/QUANT, P Routine 04/08/2025 11:10 AM CDT 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) Abnormal Finding Of Blood Chemistry Unspecified Follow Up Examination Following Bone Marrow Transplant Corticosteroid Treatment Biodiesel Processing Technician Systemic LIPID PANEL, S Routine 03/24/2025 9:29 AM CDT 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) Abnormal Finding Of Blood Chemistry Unspecified Follow Up Examination Following Bone Marrow Transplant 25-HYDROXYVITAMIN D2 AND D3, S Routine 03/24/2025 9:29 AM CDT 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) Abnormal Finding Of Blood Chemistry Unspecified Follow Up Examination Following Bone Marrow Transplant Corticosteroid Treatment Biodiesel Processing Technician Systemic PULMONARY FUNCTION TESTS Routine 03/23/2025 9:48 AM CDT 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) Transplant Bone Marrow Allogeneic (HCC) Abnormal Finding Of Blood Chemistry Unspecified Encounter Admission For Chemotherapy URINALYSIS WITH MICROSCOPIC Routine 01/09/2025 7:30 AM PODIATRIC SURGEON Transplant Bone Marrow Allogeneic (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 Hemoglobin 10.4(L) 11.6 - 15.0 g/dL 06/27/2025 [...] Ochoa APRN.N.P., D.N.P., M.S. N. LAB BLOOD NON ADD-ON Final Result Performing Organization Address City/[facility] Co de Phone Number [facility] [address] [place] [address], [facility] [address] [place] [address] * Phosphorus Inorganic (06/27/2025 3:50 AM CDT) Only the most recent of3 resultswithin the time period is included. Phosphorus (Inorganic), S 3.2 2.5 - 4.5 mg/dL 06/27/2025 5:10 AM CDT DTL Blood (Blood, Venous) 06/27/2025 3:50 AM CDT 06/27/2025 3:58 AM CDT Satnam Ochoa APRN.N.P., D.N.P., M.S. N. LAB BLOOD ADD-ON Final Result Performing Organization Address City/[facility]/ZIP Co de Phone Number [facility] [address] [place] [address] * Magnesium (06/27/2025 3:50 AM CDT) Only the most recent of12 resultswithin the time period is included. Magnesium, S 2.0 1.7 - 2.3 mg/dL 06/27/2025 5:10 AM CDT DTL Blood (Blood, Venous) 06/27/2025 3:50 AM CDT 06/27/2025 3:58 AM CDT us Jamari Ochoa APRNNLuigi., D.N.P., M.S. N. LAB BLOOD ADD-ON Final Result [facility] [address] [place] [address], [facility] [address] [place] [address] * Comprehensive Metabolic Panel (06/27/2025 3:50 AM CDT) Only the most recent of9 resultswithin the time period is included. Pathologist [facility] Potassium, S 4.3 3.6 - 5.2 mmol/L [...] BLOOD ADD-ON Final Result Performing Organization Address City/[facility]/ZIP Co de Phone Number [address] [place] [address] * Duodenum, Duodenal bulb Upper GI endoscopy-Gastroenterology Image Exam (06/26/2025 10:25 AM CDT) Only the most recent of3 resultswithin the time period is included. 06/26/2025 10:1 7 AM CDT Narrative IIMS - 06/26/2025 12:05 PM CDT This order has been created and auto-finalized to support the import of images acquired without order. The clinical documentation to support these images can be found on the encounter that produced images. us Provider Not In System IMG NON RAD IMAGING PROCE DURES Final Result Performing Organization Address City/[facility]/ZIP Co de Phone Number IIMS NA * Flexible Sigmoidoscopy (06/26/2025 10:17 AM CDT) 06/26/2025 10:1 7 AM CDT Impressions [facility] - 06/26/2025 11:58 AM CDT Post-op Diagnoses: - Preparation of the colon was poor. - Stool in the rectum and in the sigmoid colon. - The rectum and sigmoid colon are normal where seen. Biopsied to rule out GVHD and CMV as requested. Narrative [facility] - 06/26/2025 11:58 AM CDT Meaghan 2 GI Patient Name: Radha Martinez Date of : 1990 Age: 35 Procedure Date: 06/26/2025 Procedure: Flexible Sigmoidoscopy Providers: Tamara Rashid MD Referring Provider: Mckenzie Melvin Pre-op Diagnoses: Abdominal pain, Exclusion of gcwxe-gnasyc-vuid disease, Diarrhea Recommendation: - Return patient to [...] personally performed the entire procedure. Dr. Tamara Allent, MD 06/26/2025 11:58:15 AM This report has been signed electronically. Number of Addenda: 0 Note Initiated On: 06/26/2025 10:17 AM Carlee Dianne Armas APRN C.N.P., D.N.P., M.S.N. GI PROCEDURE ORDERABLES Final Result [facility] NA * Upper GI Endoscopy (06/26/2025 10:17 AM CDT) 06/26/2025 10:1 7 AM CDT Impressions [facility] - 06/26/2025 11:54 AM CDT Post-op [...] out GVHD and CMV as requested. Narrative [facility] - 06/26/2025 11:54 AM CDT Gonda 2 GI Patient Name: Radha Martinez Date of : 1990 Age: 35 Procedure Date: 06/26/2025 Procedure: Upper GI endoscopy Providers: Tamara Rashid MD Referring Provider: Mckenzie Melvin Pre-op Diagnoses: Exclusion of rmrod-lpwxkx-nqoh disease, Diarrhea, Nausea with vomiting Recommendation: - [...] RE ORDERABLES Final Result Performing Organization Address City/[facility] Co de Phone Number LINDA MARGE NA * Prothrombin Time (PT) (06/26/2025 5:24 [...] C.N.P. LAB BLOOD ADD-ON Fin al Result [facility] [address] [place] [address], [place] D[place] [facility] [address] [place] [address] * US Pelvis Transvaginal and Transabdominal (06/25/2025 [...] None. Findings discussed with Aditi Candelario APRN, CYBER SECURITY MANAGER pager [phone]) by Dr. Mcelroy 06/25/2025 at 2:09 PM. Procedure Note Marta Mcelroy M.D. - 06/25/2025 EXAM: US PELVIS TRANSVAGINAL AND TRANSABDOMINAL HISTORY: 35-year-old female with suprapubic/lower quadrant discomfort [id number]. COMPARISON: CT abdomen and pelvis 06/24/2025 TECHNIQUE: [...] None. Findings discussed with Aditi Candelario APRN, CYBER SECURITY MANAGER pager [phone]) by Dr. Mcelroy06/25/2025 at 2:09 PM. IMPRESSION: [...] with geographic fatty sparing in thegallbladder fossa. Racquel Candelario APRN, C.N.P. IMG US PROCEDURES [...] per leftventricular function protocol. Last full echocardiogram nqwystqqg88/18/2024. LEFT VENTRICLE:Normal left ventricular chamber size. Abnormal [...] Mckenzie Melvin APRN, C.N.P., D.N.P. CV ECHO WA OCEDURES Final Result * Chimerism Transplant Sorted Cells (06/25/2025 12:35 AM CDT) Only the most recent of2 resultswithin the time period is included. Specimen Type Peripheral blood 06/29 4:34 PM CDT DTL Interpretation Peripheral blood, chimerism analysis: CD3-positive T-cells: The CD3-positive fraction contains approximately 90% donor DNA and approximately 10% recipient DNA. XA17-aqniafke myeloid cells: The TH34-cfusxmrs fraction contains approximately 100% donor DNA and [...] purity of 95% or greater. Markers analyzed: [id number], I0P8163, FGA, SE33, vWA, D21S11, B54N5603, R54Z1310, I62T212, D18S51, L1V070, P4X1264, CSF1PO, T4A569, H61J811, O04A014, TPOX, T92Y269, E5H606 and Z6R5422 06/29/2025 4:34 PM CDT DTL Comment: ----ADDITIONAL INFORMATION---- Method summary - Chimerism: Genomic DNA was extracted and the specimen evaluated for the percentages of donor and recipient DNA using a PCR-based method that amplifies several highly polymorphic short tandem repeats (see [facility] Interpretive Handbook for method details). This test was developed and its performance characteristics determined by [facility] in a manner consistent with CLIA requirements. This test has not been cleared or approved by the U.S. Food and Drug Administration. Blood (Blood, Peripheral Draw) 06/25/2025 12:35 AM CDT 06/25/2025 6:57 AM CDT us Satnam Scruggs APRN.N.P., D.N.P. LAB GENETI C TESTING Final Result [facility] [address] [place] [address], [place] [address] [facility] 200 [place] [address] * (ABNORMAL) CBC with Differential, Blood (06/25/2025 12:35 AM CDT) Only the most recent of6 resultswithin the time period is included. Hemoglobin 11.4(L) 11.6 - 15.0 g/dL 06/25/2025 [...] C.N.P., D.N.P. LAB BLOOD ADD-ON Final Result [facility] [address] DTL [facility] 200 [place] [address] [facility] [address] [place] [address] * hCG (Human Chorionic Gonadotropin), Quantitative, (06/25/2025 12:35 AM CDT) HCG, Quantitative, , S <0.5 <5 IU/L 06/25/2025 9:57 AM CDT DTL Blood (Blood, Venous) 06/25/2025 12:35 AM CDT 06/25/2025 8:35 AM CDT us Racquel Candelario APRN, C.N.P. LAB BLOOD ADD-ON Fin al Result [facility] [address] [place] [address], [place] [facility] [address] [place] [address] * CT Abdomen Pelvis with IV Contrast (06/24/2025 6:16 PM CDT) Only the most recent of3 resultswithin the time period is included. Anatomical [...] have resolved. Mckenzie Melvin APRN, C.N.P., D.N.P. IM CT PRO CEDURES Final Result * CT Chest with IV Contrast (06/24/2025 [...] have resolved. Mckenzie Melvin APRN, C.N.P., D.N.P. [facility] [place] PRO CEDURES Final Result * BCR/ABL1, p210, mRNA Detection, Reverse Correspondence Representative-PCR (RT-PCR), Quantitative, Monitoring Chronic Myeloid Leukemia (CML) (06/23/2025 8:18 AM CDT) Only the most recent of3 resultswithin the time period is included. Specimen Type Peripheral blood 06/23 6:03 PM [...] level was evaluated using a quantitative, reverse director of community services PCR. The analytical sensitivity of this assay [...] all possible fusion forms. Please contact the [facility] at [phone] with questions or if additional testing is required. See the [facility] Interpretive Handbook for method [...] its performance characteristics determined by [facility] in a manner consistent with CLIA requirements. This test has not been cleared or approved by the U.S. Food and Drug Administration. Blood (Blood, Venous) 06/23/2025 8:18 AM CDT 06/23/2025 8:58 AM CDT Satnam Navarro APRN.N.P., D.N.P. LAB BLOOD NON ADD-ON Final Result Performing Organization Address City/[facility]/ZIP Co de Phone Number [facility] [address] [place] [address], [facility] [address] [facility] [address] [place] [address] * BUN (Blood Urea Nitrogen) (06/23/2025 8:18 AM CDT) Only the most recent of5 resultswithin the time period is included. BUN (Blood Urea Nitrogen), S 10 6 - 21 mg/dL 06/23/2025 9:29 AM CDT DTL Blood (Blood, Venous) 06/23/2025 8:18 AM CDT 06/23/2025 8:25 AM CDT Satnam Navarro APRN.N.P., D.N.P. LAB BLOOD ADD -ON Final Result Performing Organization Address [facility] Co de Phone Number [facility] [address] [place] [address], [facility] [address] [place] [address] * (ABNORMAL) ALT (Alanine Aminotransferase) (06/23/2025 8:18 AM CDT) Only the most recent of5 resultswithin the time period is included. Alanine Aminotransferase (ALT), S 75(H) 7 - 45 U/L 06/23/2025 9:29 AM CDT DTL Blood (Blood, Venous) 06/23/2025 8:18 AM CDT 06/23/2025 8:25 AM CDT Tessa Jesus APRN C.N.P., D.N.P. LAB BLOOD ADD -ON Final Result Performing Organization Address City/[facility] Co de Phone Number [facility] [address] [place] [address], [facility] [address] [place] [address] * (ABNORMAL) AST (Aspartate Aminotransferase) (06/23/2025 8:18 AM CDT) Only the most recent of5 resultswithin the time period is included. Aspartate Aminotransferase (AST), P 54(H) 8 - 43 U/L 06/23/2025 9:13 AM CDT METH Blood (Blood, Venous) 06/23/2025 8:18 AM CDT 06/23/2025 8:42 AM CDT Tessa Jesus APRN, C.N.P., D.N.P. LAB BLOOD ADD -ON Final Result Performing Organization Address City/[facility]/ZIP Co de Phone Number [facility] [address] METH [facility] [address] [place] [address] * Sodium (06/23/2025 8:18 AM CDT) Only the most recent of5 resultswithin the time period is included. Sodium, S 139 135 - 145 mmol/L 06/23/2025 9:29 AM CDT DTL Blood (Blood, Venous) 06/23/2025 8:18 AM CDT 06/23/2025 8:25 AM CDT Tessa Jesus APRN, C.N.P., D.N.P. LAB BLOOD ADD -ON Final Result [facility] [address] DTL [facility] [address] [place] [address] * Potassium (06/23/2025 8:18 AM CDT) Only the most recent of5 resultswithin the time period is included. Potassium, S 4.2 3.6 - 5.2 mmol/L 06/23/2025 9:29 AM CDT DTL Blood (Blood, Venous) 06/23/2025 8:18 AM CDT 06/23/2025 8:25 AM CDT Tessa Jesus APRN C.N.P., D.N.P. LAB BLOOD ADD -ON Final Result Performing Organization Address [facility] de Phone Number [facility] [address] [place] [address] * (ABNORMAL) Alkaline Phosphatase (06/23/2025 8:18 AM CDT) Only the most recent of5 resultswithin the time period is included. [facility] Alkaline Phosphatase, S 115(H) 35 - 104 U/L 06/23/2025 9:29 AM CDT DT Blood (Blood, Venous) 06/23/2025 8:18 AM CDT 06/23/2025 8:25 AM CDT Tessa Jesus APRN C.N.P., D.N.P. LAB BLOOD ADD -ON Final Result Performing Organization Address [facility] de Phone Number [facility] [address] [place] [address] * LD (Lactate Dehydrogenase) (06/23/2025 8:18 AM CDT) Only the most recent of6 resultswithin the time period is included. [facility] Deanna LD 165 122 - 222 U/L 06/23/2025 9:34 AM CDT DTL Blood (Blood, Venous) 06/23/2025 8:18 AM CDT 06/23/2025 8:41 AM CDT Satnam Navarro APRN.N.P., D.N.P. LAB BLOOD NON ADD-ON Final Result Performing Organization Address City/[facility] Co de Phone Number [facility] [address] [facility] 200 [place] [address] * (ABNORMAL) Glucose, Fasting (06/23/2025 8:18 AM CDT) Only the most recent of5 resultswithin the time period is included. Glucose, P 153(H) 70 - 100 mg/dL 06/23/2025 9:02 AM CDT DTL Last Intake 1 hr 06/23/2025 8:25 AM CDT DTL Blood (Blood, Venous) 06/23/2025 8:18 AM CDT 06/23/2025 8:25 AM CDT Tessa Jesus APRN C.N.P., D.N.P. LAB BLOOD NON ADD-ON Final Result Performing Organization Address [facility] de Phone Number [facility] [address] [facility] [address] [place] [address] * Creatinine with Estimated GFR (06/23/2025 8:18 AM CDT) Only the most recent of5 resultswithin the time period is included. Creatinine 0.91 0.59 - 1.04 mg/dL 06/23/2025 9:29 AM CDT DTL Estimated GFR (eGFR) 84 >=60 mL/min/BSA 06/23/2025 9:29 AM CDT DTL Comment: Estimated GFR calculated using the 2020 CKD_EPI creatinine equation. Blood (Blood, Venous) 06/23/2025 8:18 AM CDT 06/23/2025 8:25 AM CDT Tessa Jesus APRN, C.N.P., D.N.P. LAB BLOOD ADD -ON Final Result Performing Organization Address City/[facility] Co de Phone Number [facility] [address] [place] [address], [place] D[place] [facility] [address] [place] [address] * Calcium, Total (06/23/2025 8:18 AM CDT) Only the most recent of5 resultswithin the time period is included. Calcium, Total, S 9.4 8.6 - 10.0 mg/dL 06/23/2025 9:29 AM CDT DTL Blood (Blood, Venous) 06/23/2025 8:18 AM CDT 06/23/2025 8:25 AM CDT Tessa Jesus APRN, C.N.P., D.N.P. LAB BLOOD ADD -ON Final Result [facility] [address] [place] [address] * Bilirubin, Total (06/23/2025 8:18 AM CDT) Only the most recent of5 resultswithin the time period is included. Bilirubin, Total, P 0.2 0.0 - 1.2 mg/dL 06/23/2025 9:13 AM CDT METH Blood (Blood, Venous) 06/23/2025 8:18 AM CDT 06/23/2025 8:42 AM CDT Tessa Jesus APRN, C.N.P., D.N.P. LAB BLOOD ADD -ON Final Result [facility] [address] [place] [address] * Albumin (06/23/2025 8:18 AM CDT) Only the most recent of5 resultswithin the time period is included. Albumin, S 4.3 3.5 - 5.0 g/dL 06/23/2025 9:29 AM CDT DTL Blood (Blood, Venous) 06/23/2025 8:18 AM CDT 06/23/2025 8:25 AM CDT Satnam Navarro APRN.N.P., Heaven.N.P. LAB BLOOD ADD -ON Final Result Performing Organization Address City/[facility]/ZIP Co de Phone Number [facility] [address] [place] [address], [address] [address] * Hematologic Disorders, DNA Extract and Hold [...] the Molecular Hematopathology Laboratory's test menu, contact [facility] at [phone]. Method summary: DNA was extracted using an EZ1 BioRobot ([employer]). 06/15/2025 9:50 AM CDT 06/15/2025 3:07 PM CDT us Jessica Barnes LAB BLOOD NON ADD-ON Final Result Performing Organization Address City/[facility]/ZIP Co de Phone Number [facility] [address] [place] [address], [address] [address] * Chimerism Transplant No Cell Sort (06/15/2025 9:50 AM CDT) Specimen Type Bone marrow 06/17/2025 5:01 PM CDT DTL Interpretation These results are considered ancillary findings and require complete integration with the current pathology case [id number] for final interpretation. The result should NOT [...] and recipient DNA mixed chimerism). Markers analyzed: [id number], [id number], FGA, SE33, vWA, D21S11, [id number], N89V3969, V54C957, D18S51, D1I002, L7U8094, CSF1PO, S8S327, I43T933, C17W938, TPOX, V20A376, H9S365 and Q4H2728 06/17/2025 5:01 PM CDT DTL Comment: ----ADDITIONAL INFORMATION---- Method summary - Chimerism: Genomic DNA was extracted and the specimen evaluated for the percentages of donor and recipient DNA using a PCR-based method that amplifies several highly polymorphic short tandem repeats (see [facility] Interpretive Handbook for method details). This test was developed and its performance characteristics determined by [facility] in a manner consistent with CLIA requirements. This test has not been cleared or approved by the U.S. Food and Drug Administration. 06/15/2025 9:50 AM CDT 06/15/2025 12:09 PM CDT us Jessica Barnes LAB GENETIC TESTING Final Result [facility] [address] [place] [address], [place] [address] [place] [address] * Myeloid Neoplasms, Comprehensive OncoHeme Next-Generation Sequencing [...] 1). ClinicalTrials.gov : http://clinicaltri als.gov/ct2/search /advanced 2). [facility]: http://www.[facility]/research/clinica l-trials 3). National Cancer [place]: http://www.cancer. gov/clinicaltrials /search 4). The Leukemia & Lymphoma Society's Clinical Trial Support Center https://www.hemato logy.org/education /clinicians/clinic hx-mkngy-auufidp-c enter 06/22/2025 3:03 PM CDT DTL Variants of Unknown Significance (VUS) None 06/22/2025 3:03 PM CDT DTL Additional Information None A portion of the testing process was performed at [facility] site [id number]. 06/22/2025 3:03 PM CDT DTL Method DNA [...] its performance characteristics determined by [facility] in a manner consistent with CLIA requirements. This test has not been cleared or approved by the U.S. Food and Drug Administration. *Some genetic or genomic alterations such as very large insertion/deletion events, copy number alterations (COIL TESTER) and gene translocation events are not detected [...] (clonal cytopenias of uncertain significance, CCUS) [PMIDs: [id number], [id number], [id number], and [id number]]. Distinction between CHIP or CCUS and a [...] very large insertion/deletion events, copy number alterations (COIL TESTER) and gene translocation events are not detected [...] require complete integration with current pathology case [id number] for final interpretation. The result should NOT [...] Jessica Barnes LAB GENETIC TESTING Final Result [facility] [address] [place] [address], [place] [address] [place] [address] * WA DX BONE MARROW BX & ASPIR (06/15/2025 [...] 12:00 AM CDT) 06/16/2025 10:32 AM CDT [facility] Report electronically signed by Hanna Xiong M.D., Ph.D. I verify that I have examined all relevant slides/materials for the specimen(s) and rendered or confirmed the diagnosis. 06/16/2025 10:32 AM [facility] Gross Description B: Core biopsy [...] C1. Grossed by OER. 06/16/2025 10:32 AM [facility] Addendum ADDENDUM Molecular analysis for next generation sequencing (NGSHM), bone marrow ([id number]; 06/15/2025): Pathogenic Mutations Detected: None No other [...] chimerism transplant no cell sort, bone marrow ([id number]; 06/15/2025): The specimen contains approximately 100% donor DNA and approximately 0% recipient DNA. 3 informative loci were used in the analysis of this sample. See molecular report for complete details. Molecular Hematopathology studies interpreted by Jaylin Beltran M.D. Signed by Hanna Xiong M.D., Ph.D. 06/18/2025 11:35 AM ADDENDUM Molecular analysis for BCR/ABL1, p210, quant, bone marrow ([id number]; 06/15/2025): Negative. No BCR/ABL1 p210 mRNA transcripts [...] 06/16/2025 3:33 PM 06/23/2025 8:41 AM T [facility] Comment:REVISED RESULTS Interpretation FINAL DIAGNOSIS Peripheral blood, [...] date of extraction. 06/23/2025 8:41 AM CDT [facility] 06/15/2025 06/15/2025 6:5 3 AM CDT us Jessica Barnes LAB SURG PATH ORDERABLES E dited Result - Final [facility] [address] [place] [address], [facility] [address] [facility] [address] [place] [address] * (ABNORMAL) Basic Metabolic Panel (06/13/2025 9:13 AM CDT) Only the most recent of2 resultswithin the time period is included. Pathologist [facility] Potassium, S 3.8 3.6 - 5.2 mmol/L [...] D.N.P. LAB BLOO D ADD-ON Final Result [facility] [address] [place] [address], [facility] [address] [place] [address] * ECG 12 Lead (06/07/2025 12:15 PM CDT) Ventricular Rate ECG/Min 86 BPM MUSE WA Interval 172 ms MUSE QRSD Interval 78 ms MUSE QT Interval 350 ms MUSE QTC Interval 418 ms MUSE P Currie 55 degrees MUSE R Currie 11 degrees MUSE T Wave Currie 38 degrees MUSE 06/07/2025 12:1 5 PM [...] ORDER JANES Final Result Performing Organization Address [facility] Co de Phone Number MUSE NA * [...] BLOOD ADD-ON Final Result Performing Organization Address City/[facility]/ZIP Co de Phone Number [facility] [address] [place] [address], [place] DTL [facility] [address] [place] [address] * (ABNORMAL) C-Reactive Protein, High Sensitivity (06/07/2025 12:12 PM CDT) C-Reactive Protein, High Sens, S 3.9(H) <2.0 mg/L 06/07/2025 2:36 PM CDT DTL Comment: Elevated C-reactive protein (>=2.0 mg/L) is a risk factor for cardiovascular disease. Clinician-patient discussion of therapeutic strategy is warranted. Blood (Blood, Venous) 06/07/2025 12:12 PM CDT 06/07/2025 12:19 PM CDT Analia Gamez APRN, C.N.P. LAB BLOOD ADD-ON Final Result [address] [place] [address] * Troponin T, 5th Generation (06/07/2025 12:12 PM CDT) Pathologist [facility] Troponin T, 5th gen <6 <=10 ng/L 06/07/2025 1:04 PM CDT DTL Blood (Blood, Venous) 06/07/2025 12:12 PM CDT 06/07/2025 12:19 PM CDT Analia Gamez APRN, C.N.P. LAB BLOOD ADD-ON Final Result [facility] [address] [place] [address] * CT Chest Angiogram and Pulmonary Arteries [...] M.S.N. IMG CT PROC EDURES Final Result * CMV DNA Detect / Quant, Plasma (06/03/2025 9:41 AM CDT) Only the most recent of5 resultswithin the time period is included. Pathologist [facility] CMV DNA Detect/Quant, P Undetected Undetected IU/mL 06/03/2025 11:07 PM CDT [facility] Comment: Result in log IU/mL is Undetected. ----ADDITIONAL INFORMATION---- The quantification range of this assay is 35 to 10,000,000 IU/mL (1.54 log to 7.00 log IU/mL). Testing was performed using the lucrecia CMV test ([employer] Blood (Blood, Venous) 06/03/2025 9:41 AM CDT 06/03/2025 12:05 PM CDT Lito Pollock P.A.-C. LAB MICROBIOLOGY - BLOOD ORDER JANES Final Result [facility] [employer] [facility] [address] [place] [address] [facility] [address] [place] [address] [place] [address] * Surgical Pathology (06/01/2025 1:48 PM CDT) Pathologist [facility] 06/02/2025 1:48 PM CDT DTL Report electronically [...] sprue, or Giardia. No definite evidence for bqdoa-yafa-ff sease. B. Stomach, random sites, endoscopic biopsy: Antral and fundic mucosa with patchy mild reactive gastropathy. No H pylori. No dysplasia. No definite evidence for krhxi-zweq-yn sease. C. Esophagus, random sites, endoscopic biopsy: Squamous esophageal mucosa without diagnostic abnormality. No intraepitheli al eosinophils. No definite evidence for lrvmi-vlzd-aa sease. Digital imaging was used in the diagnostic assessment of this case. 06/02/2025 1:48 PM CDT DTL Biopsy (Duodenum) 06/01/2025 1:48 PM CDT Biopsy (Stomach) 06/01/2025 1:50 PM CDT Biopsy (Esophagus) 06/01/2025 1:51 PM CDT us Jeaneth DowlingB.S., M.S. LAB SURG PATH ORDE MONIQUE Final Result [facility] [address] [place] [address], [place] [address] [place] [address] * Upper GI Endoscopy (06/01/2025 1:11 PM CDT) 06/01/2025 1:11 PM CDT Impressions [facility] - 06/01/2025 1:56 PM CDT Post-op Diagnoses: - Normal esophagus. Biopsied. - Normal stomach. Biopsied. - A few gastric polyps with fundic gland appearance. - Normal examined duodenum. Biopsied. Narrative [facility] - 06/01/2025 1:56 PM CDT Gonda 2 GI Patient Name: Radha Martinez Date of : 1990 Age: 35 Procedure Date: 06/01/2025 Procedure: Upper GI endoscopy Providers: JAYNA Graff Referring Provider: Lito Pollock Pre-op Diagnoses: Suspected icpek-huvfom-lvvp disease, Exclusion of yxrmk-hmvpho-weab disease, Nausea Recommendation: - Await pathology results. [...] PROCEDURE ORDERABLES Final Result Performing Organization Address City/[facility] Co de Phone Number [facility] * Lactate (05/28/2025 8:59 PM CDT) Pathologist [facility] Lactate, P 1.8 0.5 - 2.2 mmol/L 05/28/2025 9:54 PM CDT DTL Blood (Blood, Venous) 05/28/2025 8:59 PM CDT 05/28/2025 9:21 PM CDT us Crista Jay M.D., M.P.H. LAB BLOOD NON ADD- ON Final Result Performing Organization Address [facility] de Phone Number [facility] [address] [place] [address] [place] [address] * Bacteria / Celso Culture, Blood #2 (05/17/2025 4:04 PM CDT) Only the most recent of2 resultswithin the time period is included. [facility] Bacteria/Yulia da Culture, Blood No growth after 5 days of incubation. 05/22/2025 5:02 PM CDT DTL Blood (Blood, Peripheral Draw) 05/17/2025 4:04 PM CDT 05/17/2025 4:50 PM CDT Comment:Specimen Source Site : Blood us Renita Potts APRN, C.N.P. , D.N.P. LAB MICROBIOLOGY - GENERAL ORDERABLES Final Result Performing Organization Address [facility] Co de Phone Number [facility] [address] [facility] 200 [place] [address] * Lactate for Sepsis with Reflex (05/17/2025 3:43 PM CDT) [facility] Lactate, P 1.6 0.5 - 2.2 mmol/L 05/17/2025 4:55 PM CDT DTL Blood (Blood, Venous) 05/17/2025 3:43 PM CDT 05/17/2025 4:41 PM CDT Renita Potts APRN, C.N.P., D.N.P. LAB BLOOD N ON ADD-ON Final Result Performing Organization Address City/[facility]/ZIP Co de Phone Number [facility] 200 [place] [address] * Clostridioides (Clostridium) Difficile Toxin, Molecular Detection, PCR, Feces (05/17/2025 2:42 PM CDT) [facility] C. difficile Toxin, F Negative Negative 05/17/2025 3:59 PM CDT DTL Stool (Stool) 05/17/2025 2:4 2 PM CDT 05/17/2025 3:13 PM CDT Tiffani Leroy APRN, C.N.P., D.N.P. LAB MICROBIOLOGY - GENERAL ORDERABLES Final Result [facility] 200 [place], [place] [address] [place] [address] * (ABNORMAL) CD4 Count for Immune Monitoring (04/29/2025 9:42 AM CDT) [facility] CD45 Total Lymph Count 0.68(L) 0.82 - [...] performance characteristics were determined by [facility] in a manner consistent with CLIA requirements. This test has not been cleared or approved by the U.S. Food and Drug Administration. Blood (Blood, Venous) 04/29/2025 9:42 AM CDT 04/29/2025 11:38 AM CDT us Jessica Barnes LAB BLOOD ADD-ON Final Res ult [facility] [address] [place] [address] [facility] [address] [place] [address] [place] [address] * (ABNORMAL) Lipid Panel (03/24/2025 9:29 AM CDT) [facility] Triglycerides 255(H) mg/dL 03/24/2025 10:28 AM CDT [...] AM CDT 03/24/2025 9:47 AM CDT Jessica Barnes LAB BLOOD ADD-ON Final Res ult [facility] [address] [place] [address], [place] [facility] [address] [place] [address] * 25-Hydroxyvitamin D2 and D3 (03/24/2025 9:29 [...] its performance characteristics determined by [facility] in a manner consistent with CLIA requirements. This test has not been cleared or approved by the U.S. Food and Drug Administration. Blood (Blood, Venous) 03/24/2025 9:29 AM CDT 03/24/2025 12:16 PM CDT us Jessica Barnes LAB BLOOD ADD-ON Final Res ult [facility] [address] [place] [address] [facility] [address] [place] [address] [place] [address] * Pulmonary Function Tests (03/23/2025 9:48 AM CDT) FVC 5.33 L 03/23/2025 11:15 AM CDT [facility] FEV1 4.40 L 03/23/2025 11:15 AM CDT [facility] FEV1/FVC 82.70 % 03/23/2025 11:15 AM CDT [facility] EQR90-88% 4.89 L/s 03/23/2025 11:15 AM CDT [facility] PEF PRE 8.01 L/s 03/23/2025 11:15 AM CDT [facility] PIF PRE 8.12 L/s 03/23/2025 11:15 AM CDT [facility] Pre FEF50/FIF50 77.59 % 03/23/2025 11:15 AM CDT [facility] FET PRE 6.33 sec 03/23/2025 11:15 AM CDT [facility] DLCO 22.95 ml/(min*mm Hg) 03/23/2025 11:15 AM CDT [facility] DLCOc 24.32 ml/(min*mm Hg) 03/23/2025 11:15 AM CDT [facility] HB 11.70 g(Hb)/dL 03/23/2025 11:15 AM CDT [facility] Pre % Pred VA SINGLE BREATH 6.32 L 03/23/2025 11:15 AM CDT [facility] PulseRest 70.00 1/min 03/23/2025 11:15 AM CDT [facility] W3RmtEqle 98.00 % 03/23/2025 11:15 AM CDT [facility] PulseExer 121.00 1/min 03/23/2025 11:15 AM CDT [facility] EXER TIME 3.00 min 03/23/2025 11:15 AM CDT [facility] STEP HEIGHT PRE 9.00 Inch 03/23/2025 11:15 AM CDT [facility] 03/23/2025 9:48 AM CDT Impressions [facility] - 03/23/2025 11:15 AM CDT Normal [...] Jessica Barnes PFT ORDERABLES Final Resu lt [facility] NA * (ABNORMAL) Urinalysis, with Microscopic: Urine, Midstream (01/09/2025 7:30 AM PODIATRIC SURGEON) Source Urine, Urine, Midstream 01/09/2025 7:46 AM PODIATRIC SURGEON DTL Color, U Yellow 01/09/2025 7:46 AM PODIATRIC SURGEON DTL Clarity, U Clear 01/09/2025 7:46 AM PODIATRIC SURGEON DTL Protein, U 29(H) <26 mg/dL 01/09/2025 8:28 AM PODIATRIC SURGEON DTL Protein/Osmol ality 0.51(H) <0.42 ratio 01/09/2025 8:28 AM PODIATRIC SURGEON DTL Predicted 24 HR Protein, U 363(H) <229 mg/24 h 01/09/2025 8:28 AM PODIATRIC SURGEON DTL Predicted Range 90-1469 mg/24 h 01/09/2025 8:28 AM PODIATRIC SURGEON DTL Comment Micro done on <5 mL 01/09/2025 8:33 AM PODIATRIC SURGEON DTL Urine (Urine, Midstream) 01/09/2025 7:30 AM PODIATRIC SURGEON 01/09/2025 7:46 AM PODIATRIC SURGEON Carlee Armas APRN C.N.P., D.N.P., M.S. N. LAB URINE ORDERABLES Final Result [facility] [address] [place] [address], [place] [facility] [address] [place] [address] * ThinPrep w/HPV Co-Test Screen (10/15/2019 11:05 AM PODIATRIC SURGEON) 10/21/2019 4:10 PM PODIATRIC SURGEON [facility] Report electronically signed by JEFF Mora(ASCP) I verify that I have examined all relevant slides/materials for the specimen(s) and rendered or confirmed the diagnosis. 10/21/2019 4:10 PM PODIATRIC SURGEON [facility] Gross Description Received specimen in a ThinPrep vial. 10/21/2019 4:10 PM PODIATRIC SURGEON [facility] Pap Test Source Cervical/Endocervi lolly 10/21/2019 4:10 PM PODIATRIC SURGEON [facility] Clinical History other 10/21/20 19 4:10 PM PODIATRIC SURGEON [facility] Menstrual Status(LMP, PM, ) on depo lupron 10/21/2019 4:10 PM PODIATRIC SURGEON [facility] Hormone Therapy/Contracep tives Hormone Replacement Therapy 10/21/2019 4:10 PM PODIATRIC SURGEON [facility] Interpretation Cervical/Endocervi lolly (ThinPrep): Satisfactory for Evaluation Negative for Intraepithelial Lesion or Malignancy High Risk HPV: Negative Negative for High Risk HPV by nucleic acid amplification. The following High Risk HPV types were not detected: 16, 18, 31, 33, 35, 39, 45, 51, 52, 56, 58, 59, 66, and 68. 10/21/2019 4:10 PM PODIATRIC SURGEON [facility] Varies (Cervix/Endocerv ix) 10/15/2019 11:05 AM PODIATRIC SURGEON 10/17/2019 7:54 AM PODIATRIC SURGEON Adore Alonso M.D. LAB PAP PATHDX ORDERABLE S Final Result Performing Organization Address City/[facility]/ZIP Co de Phone Number [facility] [address] [place] [address], [place] [facility] [address] [place] [address] * HCV Ab Scrn w/Reflex to HCV PCR, Serum (12/12/2018 5:58 PM PODIATRIC SURGEON) HCV Ab Screen, S Negative Negative 12/12/2018 10:26 PM PODIATRIC SURGEON [facility] Comment:Xabqek-wq-yctmvj rat io is <1.00. Blood (Blood, Venous) 12/12/2018 5:58 PM PODIATRIC SURGEON 12/12/2018 7:59 PM PODIATRIC SURGEON Adore Yip APRN, C .N.P., D.N.P. LAB MICROBIOLOGY - BLOOD ORDERABLES Final Result Performing Organization Address [facility] Co de Phone Number [facility] [address] [place] [address] * Hepatitis B Surface Antigen (12/12/2018 5:58 PM PODIATRIC SURGEON) HBs Antigen, S Negative Negative 12/12/2018 10:08 PM PODIATRIC SURGEON [facility] Blood (Blood, Venous) 12/12/2018 5:58 PM PODIATRIC SURGEON 12/12/2018 7:59 PM PODIATRIC SURGEON Adore Yip APRN C .N.P., D.N.P. LAB MICROBIOLOGY - BLOOD ORDERABLES Final Result Performing Organization Address City/[facility]/ZIP Co de Phone Number [facility] [address] [place] [address] from Last 3 Months or Most Recently Relevant to Health Maintenance Additional Health Concerns Infection Onset Date Last Indicated Protective Environment 03/02/2023 Insurance [facility] [place] [address] [facility] [employer] MEDICARE Advance Directives For more information, please contact: [phone] Documents on File Type Date Recorded Patient Reading Specialist Expl anation Advance Directives 12/08/2024 9:32 AM Gabrielle Minor HCPOA/ADVOCATE/AGENT/R EPRESENTATIVE/SURROGAT E * Full Code (Latest Code Status on File) Date Activated Date Inactivated Comments 06/24/2025 3:03 PM 06/27/2025 2:26 PM Question Answer Comments Full Code: Discussed * Full Code Date Activated Date Inactivated Comments 06/12/2025 4:47 [...] Agents on File Name Relationship Healthcare Agent [facility] [facility] Communication Gabrielle Martinez Mother Health Care Agent Charles Minor Significant Other First Alternat e Health Care Agent Care Teams Simulation Educator Relationship Specialty Start Date End Date Renzo Andres M.D. [address] [place] [phone] PCP - General Family Medicine 04/25/23
--- OUTSIDE RECORDS SUMMARY | 2025-06-29 22:53 | XMS_ITS | Encounter Summary ---
Author Organization [facility] Address [address] [place] [address] Care Team Providers Care Registered Vascular Technologist (Rvt) Name Role Phone Renzo Andres M.D. Primary Care Provider [phone] Reason for Visit * Reason Onset Date Comments Scheduling 04/29/2025 Encounter Details Date Type Department Care Team (Late st Contact Info) Description 04/29/2025 Clinical Communication Division of Hematology in [place], [place] [address] [place] [phone] Jessica Rousseau M.B.B.S. [address] [place] [phone] Scheduling Social History Tobacco Use Types Packs/Day Years Used Date Smoking Tobacco: Never Smokeless Tobacco: Never Alcohol Use Standard Drinks/Week Comments Yes 0 (1 standard drink = 0.6 oz pur e alcohol) social [facility] Utilities Answer Date Recorded In the past 12 months has e [employer], gas, oil, or water company threatened to [...] Sex Assigned at Female 12/26/2018 8:37 PM MACHINE CEMENTER AND FOLDER Legal Sex Female 2:43 PM MACHINE CEMENTER AND FOLDER Gender Identity Female 12/26/2018 8:37 PM MACHINE CEMENTER AND FOLDER Sexual Orientation Choose not to disclose 2020 3:46 PM CDT documented as of this encounter Plan of Treatment Upcoming Encounters Date Type Department Care Team (Latest Contact Info) Description 06/30/2025 10:20 AM CDT Lab Department of Laboratory Medicine and Pathology, [facility] in [place], [place] [address] [place] [address] Jessica Rousseau M.B.B.S. [address] [place] [address] 06/30/2025 11:[address] AM CDT Nurse [facility] Transplantation and Clinical Regeneration in [place], [place] [address] [place] [phone] Jessica Rousseau M.B.B.S. [address] [place] [phone] 06/30/2025 11:30 AM CDT Office [facility] Transplantation and Clinical Regeneration in [place], [place] [address] [place] [phone] Jessica Rousseau M.B.B.S. [address] [place] [phone] 06/30/2025 3:00 PM CDT Appointment Department of Radiology, [facility], in [place], [place] [address] [place] [phone] Carlee Armas APRN, C.N.P., D.N.P., M.S.N. [address] [place] [phone] 07/03/2025 8:00 AM CDT Telemedicine Department of Palliative Care in [place], [place] [address] [place] [phone] Yary Landa D.O. [address] [place] [phone] 07/15/2025 9:[address] Transplantation and Clinical Regeneration in [place], [place] [address] [place] [phone] Jessica Rousseau M.B.B.S. [address] [place] [phone] 08/11/2025 9:00 AM CDT Nurse Only Section of Infectious Diseases in [place], [place] [address] [place] [address] Jessica Rousseau M.B.B.S. [address] [place] [phone] 08/11/2025 10:20 AM CDT Comprehensive Visit Division of Gastroenterology in [place], [place] [address] [place] [address] Jessica Rousseau M.B.B.S. [address] [place] [phone] documented as of this encounter Visit Diagnoses Not on filedocumented in this encounter Additional Health Concerns Infection Onset Date Last Indicated Resolved Time Protective Environment 03/02/2023 03/02/2023 Assessment Noted Time PHQ-9 Depression Total Score: 2 12/10/19 25 2:46 PM MACHINE CEMENTER AND FOLDER documented as of this encounter Care Teams Registered Vascular Technologist (Rvt) Relationship Specialty Start Date End Date Renzo Andres M.D. [address] [place] [phone] PCP - General Family Medicine 04/25/23 documented as of this encounter
--- OUTSIDE RECORDS SUMMARY | 2025-06-29 22:53 | XMS_ITS | Encounter Summary ---
Author Organization [facility] Address [address] [place] [address] Care Team Providers Care Secretary Receptionist Name Role Phone Renzo Andres M.D. Primary Care Provider Reason for Referral * Outpatient (Routine) - Authorized Specialty Diagnoses / Procedures Referred By Contac t Referred To Contact Pharmacy Arlen James APRN, C.N.P., D.N.P. [address] [place] [phone] Phone: tel: fax: [facility] Referral ID Status Reason Start Date Expiration Date V isits Requested Visits Authorized [id number] Authorized 06/08/2025 12/08/2026 1 1 Scheduling Instructions Please schedule with pharmacist for 30 minutes. Please schedule [facility]/RN joint visit on 06/10/25. Encounter Details Date Type Department Care Team (Latest Contact Info) Description 06/08/2025 Clinical Communication Pedro Fatima Crossett for Transplantation and Clinical Regeneration in [place], [place] [address] [place] [phone] Jessica Rousseau M.B.B.S. [address] [place] [phone] Social History Tobacco Use Types Packs/Day Years [...] things needed for daily living? No 06/12/2025 [facility] Utilities Answer Date Recorded In the past [address] [facility] electric, gas, oil, or water company threatened to shut off services in your home? No 06/12/2025 Depression Answer Date Recor ded PHQ-9 Total Score (max 27) 2 12/10 Housing Stability Answer Date Recorded What is your living situation today? I have a [facility] place to live 06/12/2025 Education Answer Date Recorded What is the highest level of school you have completed or the highest degree you have received? Some college, no degree 04/24/2019 Comments No Sex and Gender Information Value Date Recorded Sex Assigned at Female 12/26/2018 8:37 PM TITLE ABSTRACTOR Legal Sex Female 2:43 PM TITLE ABSTRACTOR Gender Identity Female 12/26/2018 8:37 PM TITLE ABSTRACTOR Sexual Orientation Choose not to disclose 2020 3:46 PM CDT documented as of this encounter Miscellaneous Notes * Telephone Encounter - Elise Pizarro, RHelio. - 06/08/2025 11:09 AM CDT Per infectious [...] today as we cannot schedule this at [facility] locations. She will let us know if she is having rouble with this. She is willing to be seen in clinic on Sunday06/10/25 since she Danish already be in [place] for other appointments. Will request this and send orders to [facility] group for review. documented in this encounter Plan of Treatment Upcoming Encounters Date Type Department Care Team (Latest Contact Info) Description 06/30/2025 10:20 AM CDT Lab Department of Laboratory Medicine and Pathology, [facility], in [place], [place] [address] [place] [address] Jessica Rousseau M.B.B.S. [address] [place] [address] 06/30/2025 11:00 AM CDT Nurse Only Pedro Fatima Crossett for Transplantation and Clinical Regeneration in [place], [place] [address] [place] [phone] Jessica Rousseau M.B.B.S. [address] [place] [phone] 06/30/2025 11:30 AM CDT Office Visit Pedro Nazario [facility] Transplantation and Clinical Regeneration in [place], [place] [address] [place] [phone] Jessica Rousseau M.B.B.S. [address] [place] [phone] 06/30/2025 3:00 PM CDT Appointment Department of Radiology, [facility], in [place], [place] [address] [place] [phone] Carlee Armas APRN, C.N.P., D.N.P., M.S.N. [address] [place] [phone] 07/03/2025 8:00 AM CDT Telemedicine Department of Palliative Care in [place], [place] [address] [place] [phone] Yary Landa D.O. [address] [place] [phone] 07/15/2025 9:00 AM CDT Telemedicine Pedro MylaKatalina [facility] Transplantation and Clinical Regeneration in [place], [place] [address] [place] [phone] Jessica Rousseau M.B.B.S. [address] [place] [phone] 08/11/2025 9:00 AM CDT Nurse Only Section of Infectious Diseases in [place], [place] [address] [place] [phone] Jessica Rousseau M.B.B.S. [address] [place] [phone] 08/11/2025 10:20 AM CDT Comprehensive Visit Division of Gastroenterology in [place], [place] [address] [place] [phone] Jessica Rousseau M.B.B.S. [address] [place] [phone] Scheduled Orders Name Type Priority Associated Diagnoses Orde r Schedule Fungal Culture, Routine Microbiology Routine Transplant Bone [...] Positive Remission (HCC) Expected: 06/10/2025, Expires: 09/08/2025 Scheduled Referrals Name Type Priority Associated Diagnoses [...] Total Score: 2 12/10/19 25 2:46 PM TITLE ABSTRACTOR documented as of this encounter Care Teams Secretary Receptionist Relationship Specialty Start Date End Date Renzo Andres M.D. [address] [place] [phone] PCP - General Family Medicine 04/25/23 documented as of this encounter
--- OUTSIDE RECORDS SUMMARY | 2025-06-29 22:53 | XMS_ITS | Encounter Summary ---
Author Organization [facility] Address [address] [place] [address] Care Team Providers Care Chief Underwriter Name Role Phone Renzo Andres M.D. 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 [address] [place] [phone] Phone: tel: fax: [place] Referral ID Status Reason Start Date Expiration Date Visits Requested Visits Authorized [id number] Authorized Specialty Services Required 06/29/2025 12/29/2026 1 1 Scheduling Instructions GIH consult should be scheduled after all testing Encounter Details Date Type Department Care Team (Late st Contact Info) Description 06/29/2025 Orders Only [facility] in [place], [place] [address] [place] [phone] Tara Marin R.N., BMT-CN [address] [place] [phone] Transplant Bone Marrow Allogeneic (HCC) (Primary Dx); [...] things needed for daily living? No 06/24/2025 [facility] Utilities Answer Date Recorded In the past 12 months has [facility] electric, gas, oil, or water company threatened to shut off services in your home? No 06/24/2025 Depression Answer Date Recor ded PHQ-9 Total Score (max 27) 2 12/10 Housing Stability Answer Date Recorded What is your living situation today? I have a [facility] place to live 06/24/2025 Education Answer Date Recorded What is the highest level of school you have completed or the highest degree you have received? Some college, no degree 04/24/2019 Comments No Sex and Gender Information Value Date Recorded Sex Assigned at Female 12/26/2018 8:37 PM DOCUMENTATION WRITER Legal Sex Female 2:43 PM DOCUMENTATION WRITER Gender Identity Female 12/26/2018 8:37 PM DOCUMENTATION WRITER Sexual Orientation Choose not to disclose 2020 3:46 PM CDT documented as of this encounter Plan of Treatment Upcoming Encounters Date Type Department Care Team (Latest Contact Info) Description 06/30/2025 10:20 AM CDT Lab Department of Laboratory Medicine and Pathology, [facility] in [place], [place] [address] [place] [phone] Jessica Rousseau M.B.B.S. [address] [place] [phone] 06/30/2025 11:00 AM CDT Nurse Only [facility] Transplantation and Clinical Regeneration in [place], [place] [address] [place] [phone] Jessica Rousseau M.B.B.S. [address] [place] [phone] 06/30/2025 11:30 AM CDT Office Visit [facility] Transplantation and Clinical Regeneration in [place], [place] [address] [place] [address] Jessica Rousseau M.B.B.S. [address] [place] [phone] 06/30/2025 3:00 PM CDT Appointment Department of Radiology, [facility], in [place], [place] [address] [place] [phone] Carlee Armas APRN, C.N.P., D.N.P., M.S.N. [address] [place] [phone] 07/03/2025 8:00 AM CDT Telemedicine Department of Palliative Care in [place], [place] [address] [place] [phone] Yary Landa D.O. [address] [place] [phone] 07/15/2025 9:00 AM CDT Telemedicine [facility] [place] for Transplantation and Clinical Regeneration in [place], [place] [address] [place] [phone] Jessica Rousseau M.B.B.S. [address] [place] [phone] 08/11/2025 9:00 AM CDT Nurse Only Section of Infectious Diseases in [place], [place] [address] [place] [phone] Jessica Rousseau M.B.B.S. [address] [place] [phone] 08/11/2025 10:20 AM CDT Comprehensive Visit Division of Gastroenterology in [place], [place] [address] [place] [phone] Jessica Rousseau M.B.B.S. 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 [address] [place] [address] [place] [phone] PCP - General Family Medicine 04/25/23 documented as of this encounter
--- OUTSIDE RECORDS SUMMARY | 2025-06-29 22:53 | XMS_ITS | Encounter Summary ---
Author Organization [facility] Address [address] [place] [address] Care Team Providers Care Senior Communications Specialist Name Role Phone Renzo Andres M.D. Primary Care Provider [phone] Reason for Referral * MRI/CAT/PET Scan (Routine) - Authorized Specialty Diagnoses / Procedures Referred By Contac t Referred To Contact Radiology Diagnoses Transplant Stem Cell (HCC) Transplant Bone Marrow Allogeneic (HCC) Procedures CT Abdomen Pelvis Angiogram Enterography with IV Contrast Carlee Armas APRN, C.N.P., D.N.P., M.S.N. [address] [place] [phone] Phone: tel: fax: [facility] Referral ID Status Reason Start Date Expiration Date V isits Requested Visits Authorized [id number] Authorized 06/27/2025 09/27/2026 1 1 CDT Encounter Details Date Type Department Care Team (Late st Contact Info) Description 06/27/2025 Orders Only [facility], [facility], [facility], Ninth Floor [address] [place] [address] Carlee Armas APRN, C.N.P., D.N.P., M.S.N. 200 [place] [address] Abdominal Pain (Primary Dx); Transplant Stem Cell [...] things needed for daily living? No 06/24/2025 [facility] Utilities Answer Date Recorded In the past 12 months has e electric, gas, oil, or water company threatened to shut off services in your home? No 06/24/2025 Depression Answer Date Recor ded PHQ-9 Total Score (max 27) 2 12/10 Housing Stability Answer Date Recorded What is your living situation today? I have a [facility] place to live 06/24/2025 Education Answer Date Recorded What is the highest level of school you have completed or the highest degree you have received? Some college, no degree 04/24/2019 Comments No Sex and Gender Information Value Date Recorded Sex Assigned at Female 12/26/2018 8:37 PM MANAGER OF CLINICAL Legal Sex Female 2:43 PM MANAGER OF CLINICAL Gender Identity Female 12/26/2018 8:37 PM MANAGER OF CLINICAL Sexual Orientation Choose not to disclose 2020 3:46 PM CDT documented as of this encounter Plan of Treatment Upcoming Encounters Date Type Department Care Team (Latest Contact Info) Description 06/30/2025 10:20 AM CDT Lab Department of Laboratory Medicine and Pathology, [facility] in [place], [place] [address] [place] [address] Jessica Rousseau M.B.B.S. [address] [place] [phone] 06/30/2025 11:00 AM CDT Nurse [facility] [place], [place] [address] [place] [address] Jessica Roussaeu M.B.B.S. [address] [place] [phone] 06/30/2025 11:30 AM CDT [facility] [place], [place] [address] [place] [address] Jessica Rousseau M.B.B.S. [address] [place] [phone] 06/30/2025 3:00 PM CDT Appointment Department of Radiology, [facility], in [place], [place] [address] [place] [address] Carlee Armas APRN, C.N.P., Heaven.N.P., M.S.N. [address] [place] [phone] 07/03/2025 8:00 AM CDT Telemedicine Department of Palliative Care in [place], [place] [address] [place] [phone] Yary Landa D.O. [address] [place] [phone] 07/15/2025 9:00 AM CDT Telemedicine [facility] in [place], [place] [address] [place] [phone] Jessica Rousseau M.B.B.S. [address] [place] [phone] 08/11/2025 9:00 AM CDT Nurse Only Section of Infectious Diseases in [place], [place] [address] [place] [phone] Jessica Rousseau M.B.B.S. [address] [place] [phone] 08/11/2025 10:20 AM CDT Comprehensive Visit Division of Gastroenterology in [address] [phone] Jessica Rousseau M.B.B.S. [address] [place] [phone] Scheduled Orders Name Type Priority Associated Diagnoses Order Schedule CT Abdomen Pelvis Angiogram Enterography with IV Contrast Imaging RAD - Routine (most inpatients and all outpatients) Transplant Stem Cell (HCC) Transplant Bone Marrow Allogeneic (HCC) Expected: 06/29/2025, Expires: 09/27/2026 documented as of this encounter Visit Diagnoses Diagnosis Abdominal Pain- Primary Transplant Stem Cell (HCC) Transplant Bone Marrow Allogeneic (HCC) documented in this encounter Additional Health Concerns Infection Onset Date Last Indicated Resolved Time Protective Environment 03/02/2023 03/02/2023 Assessment Noted Time PHQ-9 Depression Total Score: 2 12/10/19 25 2:46 PM MANAGER OF CLINICAL documented as of this encounter Care Teams Senior Communications Specialist Relationship Specialty Start Date End Date Renzo Andres M.D. [address] [place] [phone] PCP - General Family Medicine 04/25/23 documented as of this encounter
--- OUTSIDE RECORDS SUMMARY | 2025-06-29 22:53 | XMS_ITS | Encounter Summary ---
Author Organization [facility] Address [address] [place] [address] Care Team Providers Care Head Waiter Name Role Phone Renzo Andres M.D. 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, [facility], Ninth Floor [address] [place] [address] Ladonna Constantino, RKatalinaN. 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 Some college, no degree 04/24/2019 Comments No Sex and Gender Information Value Date Recorded Sex Assigned at Female 12/26/2018 8:37 PM EQUIPMENT MAINTENANCE SUPERVISOR Legal Sex Female 2:43 PM EQUIPMENT MAINTENANCE SUPERVISOR Gender Identity Female 12/26/2018 8:37 PM EQUIPMENT MAINTENANCE SUPERVISOR Sexual Orientation Choose not to disclose 2020 3:46 PM CDT documented as of this encounter Plan of Treatment Upcoming Encounters Date Type Department Care Team (Latest Contact Info) Description 06/30/2025 10:20 AM CDT Lab Department of Laboratory Medicine and Pathology, [facility], in [place], [place] [address] [place] [phone] Jessica Rousseau M.B.B.S. [address] [place] [phone] 06/30/2025 11:00 AM CDT Nurse Only [facility] in [place], [place] [address] [place] [phone] Jessica Rousseau M.B.B.S. [address] [place] [phone] 06/30/2025 11:30 AM CDT Office Visit [facility] Transplantation and Clinical Regeneration in [place], [place] [address] [place] [phone] Jessica Rousseau M.B.B.S. [address] [place] [phone] 06/30/2025 3:00 PM CDT Appointment Department of Radiology, [facility], in [place], [place] [address] [place] [phone] Carlee Armas APRN, C.N.P., D.N.P., M.S.N. [address] [place] [phone] 07/03/2025 8:00 AM CDT Telemedicine Department of Palliative Care in [place], [place] [address] [place] [phone] Yary Landa D.O. [address] [place] [phone] 07/15/2025 9:00 AM CDT Telemedicine [facility] in [place], [place] [address] [place] [address] Jessica Rousseau M.B.B.S. [address] [place] [phone] 08/11/2025 9:00 AM CDT Nurse Only Section of Infectious Diseases in [place], [place] [address] [place] [phone] Jessica Rousseau M.B.B.S. [address] [place] [phone] 08/11/2025 10:20 AM CDT Comprehensive Visit Division of Gastroenterology in [place], [place] [address] [place] [phone] Jessica Rousseau M.B.B.S. [address] [place] [phone] Scheduled Referrals Name Type Priority Associated Diagnoses [...] Total Score: 2 12/10/19 25 2:46 PM EQUIPMENT MAINTENANCE SUPERVISOR documented as of this encounter Care Teams Head Waiter Relationship Specialty Start Date End Date Renzo Andres M.D. [address] [place] [address] [place] [address] PCP - General Family Medicine 04/25/23 documented as of this encounter
--- OUTSIDE RECORDS SUMMARY | 2025-06-29 22:53 | XMS_ITS | Encounter Summary ---
Author Organization [facility] Address [address] [place] [address] Care Team Providers Care Home Based Assistant Name Role Phone Renzo Andres M.D. Primary Care Provider [phone] Reason for Visit * Reason Onset Date Comments Lab Monitoring 05/11/2025 05/08/2025 Encounter Details Date Type Department Care Team (Latest Contact Info) Description 05/11/2025 Clinical Communication [facility] in [place], [place] [address] [place] [address] Arely Taylor, R.N. [address] [place] [phone] Lab Monitoring (05/08/2025) Social History Tobacco Use [...] things needed for daily living? No 06/12/2025 [facility] Utilities Answer Date Recorded In the past 12 months has [employer], gas, oil, or water [employer] threatened to shut off services in your home? No 06/12/2025 Depression Answer Date Recor ded PHQ-9 Total Score (max 27) 2 12/10 Housing Stability Answer Date Recorded What is your living situation today? I have a [facility] place to live 06/12/2025 Education Answer Date Recorded What is the highest level of school you have completed or the highest degree you have received? Some college, no degree 04/24/2019 Comments No Sex and Gender Information Value Date Recorded Sex Assigned at Female 12/26/2018 8:37 PM BOTTOM BLEACHER Legal Sex Female 2:43 PM BOTTOM BLEACHER Gender Identity Female 12/26/2018 8:37 PM BOTTOM BLEACHER Sexual Orientation Choose not to disclose 2020 [...] - Local labs at [facility] in 10 days. BMT Allogenic transplant date: 12/10/2024 (152 days) Lab frequency: weekly Next BMT visit: 05/20/2025 Outside labs from 05/08/2025 are located in the Labs section of [employer]. Labs pending: None Resulted Labs: Recent Labs [...] Pathology, [facility], in [place], [place] [address] [place] [phone] Jessica Rousseau M.B.B.S. [address] [place] [phone] 06/30/2025 11:00 AM CDT Nurse [facility] in [place], [place] [address] [place] [phone] Jessica Rousseau M.B.B.S. [address] [place] [phone] 06/30/2025 11:30 AM CDT [facility] in [place], [place] [address] [place] [phone] Jessica Rousseau M.B.B.S. [address] [place] [phone] 06/30/2025 3:00 PM CDT Appointment Department of Radiology, [facility], in [place], [place] [address] [place] [phone] Carlee Armas APRN, C.N.P., D.N.P., M.S.N. [address] [place] [phone] 07/03/2025 8:00 AM CDT Telemedicine Department of Palliative Care in [place], [place] [address] [place] [phone] Yary Landa D.O. [address] [place] [phone] 07/15/2025 9:00 AM CDT Telemedicine [facility] for Transplantation and Clinical Regeneration in [place], [place] [address] [place] [phone] Jessica Rousseau M.B.B.S. [address] [place] [phone] 08/11/2025 9:00 AM CDT Nurse Only Section of Infectious Diseases in [place], [place] [address] [place] [phone] Jessica Rousseau M.B.B.S. [address] [place] [phone] 08/11/2025 10:20 AM CDT Comprehensive Visit Division of Gastroenterology in [place], [place] [address] [place] [phone] Jessica Rousseau M.B.B.S. 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 [address] [place] [phone] PCP - General Family Medicine 04/25/23 documented as of this encounter
--- OUTSIDE RECORDS SUMMARY | 2025-06-29 22:54 | XMS_ITS | Encounter Summary ---
Author Organization [facility] Address [address] [place] [address] Care Team Providers Care Order Manager Name Role Phone Renzo Andres M.D. Primary Care Provider Encounter Details Date Type Department Care Team (Late st Contact Info) Description 06/27/2025 Orders Only [facility], [facility], Ninth Floor [address] [place] [address] Analia Carter, CUSTOMER SERVICES COORDINATOR, C.N.P. [address] [place] [phone] Transplant Bone Marrow Allogeneic (HCC); Leukemia Myeloid [...] In the past 12 months has e [employer], gas, oil, or water [employer] threatened to shut off services in your home? No 06/24/2025 Depression Answer Date Recor ded PHQ-9 Total Score (max 27) 2 12/10 Housing Stability Answer Date Recorded What is your living situation today? I have a [facility] place to live 06/24/2025 Education Answer Date Recorded What is the highest level of school you have completed or the highest degree you have received? Some college, no degree 04/24/2019 Comments No Sex and Gender Information Value Date Recorded Sex Assigned at Female 12/26/2018 8:37 PM CAR REPAIR SUPERVISOR Legal Sex Female 2:43 PM CAR REPAIR SUPERVISOR Gender Identity Female 12/26/2018 8:37 PM CAR REPAIR SUPERVISOR Sexual Orientation Choose not to disclose 2020 3:46 PM CDT documented as of this encounter Plan of Treatment Upcoming Encounters Date Type Department Care Team (Latest Contact Info) Description 06/30/2025 10:20 AM CDT Lab Department of Laboratory Medicine and Pathology, [facility], in [place], [place] [address] [place] [address] Jessica Rousseau M.B.B.S. [address] [place] [address] 06/30/2025 11:00 AM CDT Nurse Only [facility] Transplantation and Clinical Regeneration in [place], [place] [address] [place] [address] Jessica Rousseau M.B.B.S. [address] [place] [phone] 06/30/2025 11:30 AM CDT Office Visit [facility] Trans[facility] Clinical Regeneration in [place], [place] [address] [place] [address] Jessica Rousseau M.B.B.S. [address] [place] [phone] 06/30/2025 3:00 PM CDT Appointment Department of Radiology, [facility], in [place], [place] [address] [place] [address] Carlee Armas APRN, C.N.P., D.N.P., M.S.N. [address] [place] [phone] 07/03/2025 8:00 AM CDT Telemedicine Department of Palliative Care in [place], [place] [address] [place] [phone] Yary Landa D.O. [address] [place] [phone] 07/15/2025 9:00 AM CDT Telemedicine [facility] Transplantation and Clinical Regeneration in [place], [place] [address] [place] [address] Jessica Rousseau M.B.B.S. [address] [place] [phone] 08/11/2025 9:00 AM CDT Nurse Only Section of Infectious Diseases in [place], [place] [address] [place] [address] Jessica Rousseau M.B.B.S. [address] [place] [address] 08/11/2025 10:20 AM CDT Comprehensive Visit Division of Gastroenterology in [place], [place] [address] [place] [address] Jessica Rousseau M.B.B.S. 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 [address] [place] [phone] PCP - General Family Medicine 04/25/23 documented as of this encounter
--- OUTSIDE RECORDS SUMMARY | 2025-06-29 22:54 | XMS_ITS | Encounter Summary ---
Author Organization [facility] Address [address] [place] [address] Care Team Providers Care Inspector Salvage Name Role Phone Renzo Andres M.D. Primary Care Provider Reason for Visit * Reason Onset Date Comments Nurse Assessment 06/12/2025 Abdominal Pain 06/12/2025 Encounter Details Date Type Department Care Team (Latest Contact Info) Description 06/12/2025 Clinical Communication Pedro [facility] in [place], [place] [address] [place] [address] Daniela Mercer R.N., BMT-CN [address] [place] [address] Nurse Assessment; Abdominal Pain Social History Tobacco [...] things needed for daily living? No 06/12/2025 [facility] Utilities Answer Date Recorded In the past 12 months has e [employer], gas, oil, or water [employer] threatened to shut off services in your home? No 06/12/2025 Depression Answer Date Recor ded PHQ-9 Total Score (max 27) 2 12/10 Housing Stability Answer Date Recorded What is your living situation today? I have a [facility] place to live 06/12/2025 Education Answer Date Recorded What is the highest level of school you have completed or the highest degree you have received? Some college, no degree 04/24/2019 Comments No Sex and Gender Information Value Date Recorded Sex Assigned at Female 12/26/2018 8:37 PM HEATING FIXTURE TENDER Legal Sex Female 2:43 PM HEATING FIXTURE TENDER Gender Identity Female 12/26/2018 8:37 PM HEATING FIXTURE TENDER Sexual Orientation Choose not to disclose [...] and Pathology, [facility], in [place], [place] [address] [place] [address] Jessica Rousseau M.B.B.S. [address] [place] [phone] 06/30/2025 11:00 AM CDT Nurse Only Pedro [facility] Trans[facility] in [place], [place] [address] [place] [phone] Jessica Rousseau M.B.B.S. [address] [place] [phone] 06/30/2025 11:30 AM CDT Office Visit [facility] Transplantation and Clinical Regeneration in [place], [place] [address] [place] [phone] Jessica Rousseau M.B.B.S. [address] [place] [phone] 06/30/2025 3:00 PM CDT Appointment Department of Radiology, [facility], in [place], [place] [address] [place] [address] Carlee Armas APRN, C.N.P., D.N.P., M.S.N. [address] [place] [phone] 07/03/2025 8:00 AM CDT Telemedicine Department of Palliative Care in [place], [place] [address] [place] [phone] Yary Landa D.O. [address] [place] [phone] 07/15/2025 9:00 AM CDT Telemedicine [facility] Transplantation and Clinical Regeneration in [place], [place] [address] [place] [phone] Jessica Rousseau M.B.B.S. [address] [place] [phone] 08/11/2025 9:00 AM CDT Nurse Only Section of Infectious Diseases in [place], [place] [address] [place] [phone] Jessica Rousseau M.B.B.S. [address] [place] [phone] 08/11/2025 10:20 AM CDT Comprehensive Visit Division of Gastroenterology in [place], [place] [address] [place] [address] Jessica Rousseau M.B.B.S. [address] [place] [address] documented as of this encounter Visit Diagnoses Not on filedocumented in this encounter Additional Health Concerns Infection Onset Date Last Indicated Resolved Time Protective Environment 03/02/2023 03/02/2023 Assessment Noted Time PHQ-9 Depression Total Score: 2 12/10/19 25 2:46 PM HEATING FIXTURE TENDER documented as of this encounter Care Teams Inspector Salvage Relationship Specialty Start Date End Date Renzo Andres M.D. [address] [place] [phone] PCP - General Family Medicine 04/25/23 documented as of this encounter
--- OUTSIDE RECORDS SUMMARY | 2025-06-29 22:54 | XMS_ITS | Encounter Summary ---
Author Organization [facility] Address [address] [place] [address] Care Team Providers Care Assistant Product Manager Name Role Phone Renzo Andres M.D. Primary Care Provider [phone] Reason for Visit * Reason Onset Date Comments Phone Contact 06/18/2025 Encounter Details Date Type Department Care Team (Latest Contact Info) Description 06/18/2025 Clinical Communication [facility] [place], [place] [address] [place] [address] Osiris Bass R.N., BMT-CN [address] [place] [address] Phone Contact Social History Tobacco Use Types [...] needed for daily living? No 06/12/2025 [facility] Utilities Answer Date Recorded In the past 12 months has th e [employer], gas, oil, or water company threatened to shut off services in your home? No 06/12/2025 Depression Answer Date Recor ded PHQ-9 Total Score (max 27) 2 12/10 Housing Stability Answer Date Recorded What is your living situation today? I have a [facility] place to live 06/12/2025 Education Answer Date Recorded What is the highest level of school you have completed or the highest degree you have received? Some college, no degree 04/24/2019 Comments No Sex and Gender Information Value Date Recorded Sex Assigned at Female 12/26/2018 8:37 PM SPONGE PACKER Legal Sex Female 2:43 PM SPONGE PACKER Gender Identity Female 12/26/2018 8:37 PM SPONGE PACKER Sexual Orientation Choose not to disclose 2020 3:46 PM CDT documented as of this encounter Plan of Treatment Upcoming Encounters Date Type Department Care Team (Latest Contact Info) Description 06/30/2025 10:20 AM CDT Lab Department of Laboratory Medicine and Pathology, [facility], in [place], [place] [address] [place] [address] Jessica Rousseau M.B.B.S. [address] [place] [address] 06/30/2025 11:00 AM CDT Nurse Only [facility] Transplantation and Clinical Regeneration in [place], [place] [address] [place] [phone] Jessica Rousseau M.B.B.S. [address] [place] [phone] 06/30/2025 11:30 AM CDT Office Visit [facility] Transplantation and Clinical Regeneration in [place], [place] [address] [place] [phone] Jessica Rousseau M.B.B.S. [address] [place] [phone] 06/30/2025 3:00 PM CDT Appointment Department of Radiology, [facility], in [place], [place] [address] [place] [phone] Carlee Armas APRN, C.N.P., D.N.P., M.S.N. [address] [place] [phone] 07/03/2025 8:00 AM CDT Telemedicine Department of Palliative Care in [place], [place] [address] [place] [phone] Yary Landa D.O. [address] [place] [phone] 07/15/2025 9:00 AM CDT Telemedicine [facility] Transplantation and Clinical Regeneration in [place], [place] [address] [place] [phone] Jessica Rousseau M.B.B.S. [address] [place] [phone] 08/11/2025 9:00 AM CDT Nurse Only Section of Infectious Diseases in [place], [place] [address] [place] [address] Jessica Rousseau M.B.B.S. [address] [place] [address] 08/11/2025 10:20 AM CDT Comprehensive Visit Division of Gastroenterology in [place], [place] [address] [place] [address] Jessica Rousseau M.B.B.S. [address] [place] [phone] documented as of this encounter Visit Diagnoses Not on filedocumented in this encounter Additional Health Concerns Infection Onset Date Last Indicated Resolved Time Protective Environment 03/02/2023 03/02/2023 Assessment Noted Time PHQ-9 Depression Total Score: 2 12/10/19 25 2:46 PM SPONGE PACKER documented as of this encounter Care Teams Assistant Product Manager Relationship Specialty Start Date End Date Renzo Andres M.D. [address] [place] [phone] PCP - General Family Medicine 04/25/23 documented as of this encounter
--- OUTSIDE RECORDS SUMMARY | 2025-06-29 22:54 | XMS_ITS | Clinical Summary ---
Author Organization [facility] Address [address] [place] [address] Care Team Providers Care Supervisor Case Loading Name Role Phone Antoinette Palacio PhD, LP Unavailable [phone] Shweta Graciakim Huber STORAGE BRINE WORKER Unavailable [phone] Unavailable [phone] Staff, Other Clinical Unavailable UnavailErmelinda Cadet MD [...] Date Type Department Care Team Description 06/29/2025 11:15 AM CDT Telemedicine [facility] [address] [place] [address] Renita Pichardo PsyD, LP Psychotherapy 06/22/2025 11:15 AM CDT Telemedicine [facility] [address] [place] [address] Reniat Pichardo PsyD, LP Psychotherapy 06/18/[address] [facility] [address] [place] [address] Renita Pichardo PsyD, LP Late Cancel Appointment (APT 06/19/2025) 06/17/[address] [facility] [address] [place] [address] Renita Pichardo PsyD, LP Late Cancel Appointment 06/08/2025 11:15 AM CDT Telemedicine [facility] [address] [place] [address] Renita Pichardo PsyD, LP Psychotherapy 06/08/[address] [facility] [address] [place] [address] Ermelinda Pierre MD Appointment 06/05/2025 1:00 PM CDT Telemedicine [facility] [address] [place] [address] Felicia Weathers NP Follow Up; Medication Management; Telehealth 06/05/2025 Travel 06/01/2025 8:45 AM CDT Telemedicine [facility] [address] [place] [address] Renita Pichardo PsyD, LP Psychotherapy 05/29/[address] [facility] [address] [place] [address] Iris Victor GASKET WINDER Care Coordination (Re Engagement ) 05/28/[address] [facility] [address] [place] [address] Renita Pichardo PsyD, FIDENCIO FYI (Regarding appointment) 05/20/2025 1:45 PM CDT Telemedicine [facility] [address] [place] [address] Renita Pichardo PsyD, LP Psychotherapy 05/12/2025 1:45 PM CDT Telemedicine [facility] [address] [place] [address] Renita Pichardo PsyD, LP Psychotherapy 05/08/[address] [facility] [address] [place] [address] Felicia Weathers NP Follow Up 05/06/[address] [facility] [address] [place] [address] Ermelinda Pierre MD ACC Order Request 05/04/2025 11:15 AM CDT Telemedicine [facility] [address] [place] [address] Renita Pichardo PsyD, LP Psychotherapy 04/20/2025 11:15 AM CDT Telemedicine [facility] [address] [place] [address] Renita Pichardo PsyD, LP Psychotherapy 04/06/2025 11:15 AM CDT Telemedicine [facility] [address] [place] [address] Renita Pichardo, Henna, FIDENCIO Psychotherapy from Last 3 Months Immunizations Immunization Administration Dates Next Due COVID-19 vaccine (Moderna 100mcg/0.5mL) PF MDRowdy 11/10/2021 Hepatitis B (Adult) 03/07/2001,10/31/2000,1999 Hepatitis B [...] on file Legal Sex Female 5:23 AM BORING MILL OPERATOR Gender Identity Not on file Sexual Orientation [...] 36.2 C (97.1 F) 11/21/2023 9:09 AM BORING MILL OPERATOR Respiratory Rate 18 11/21/2023 9:09 AM BORING MILL OPERATOR Oxygen Saturation 98% 06/23/2024 10:48 AM CDT Inhaled Oxygen Concentration - - Weight 99.1 kg (218 lb 8 oz) 06/23/2024 10:48 AM CDT Height 172 cm (5' 7.72) 06/23/2024 10:48 AM CDT Body Mass Index 33.5 06/23/2024 10:48 AM CDT Plan of Treatment Upcoming Encounters Date Type Department Care Team (Late st Contact Info) Description 07/06/2025 2:45 PM CDT Telemedicine [facility] [address] [place] [address] Renita Pichardo PsyD, FIDENCIO [facility] [address] [place] [address] 07/13/2025 1:45 PM CDT Telemedicine [facility] [address] [place] [address] Renita Pichardo PsyD, FIDENCIO [address] [facility] [address] [place] [address] 08/28/2025 1:00 PM CDT Telemedicine [facility] [address] [place] [address] Felicia Weathers, MUSTAPHA [address] [place] [address] Health Maintenance Due Date Last Done Comments [...] CDT Need for hepatitis C screening test FOUR H CLUB AGENT THIN PREP PAP SCREEN IMAGED Routine 11/25/2013 11:15 AM BORING MILL OPERATOR Screening for malignant neoplasm of the cervix ANTI HIV 1/2 Routine 12/26/2010 5:05 PM BORING MILL OPERATOR Supervision of normal first (HC) from Last 3 Months or Most Recently Relevant to Health Maintenance Results * ANTI HCV (08/02/2023 1:57 PM CDT) HEPATITIS C ANTIBODY Non-Reacti ve Non-React nina 08/03/2023 3:36 PM CDT [facility] Comment:Please note, per www .CDC.gov: If [...] PM CDT 08/02/2023 1:57 PM CDT us Estefayn BLAND SEND OUTS Final Result [facility] SENDOUT INTERNAL ZIP [id number] [address] [place] [address] * FOUR H CLUB AGENT THIN PREP PAP SCREEN IMAGED (11/25/2013 11:15 AM BORING MILL OPERATOR) CYTOLOGY CYTOPATHOLOGY REPORT [facility] Status: Final Status [id number] CLINICAL INFORMATION Last Date of LMP :11/17/13 Last Pap Date :03/03/2011 Last Pap Result :NIL ABN [place]/Bx Past 5 YRS :None Hormone Usage :BCP/OCP/Patch/Rin g Menstrual Status :Regular Periods [place]/Bx done today :No Additional Information :None given [...] malignant lesions. COLLECTED:11/25/13 ACCESSIONED: 11/26/13 SIGNED: 12/02/13 [facility] PAP [place] CODE NIL [facility] Tissue specimen (specimen) (Cervical/Vagina l) 11/25/2013 11:15 AM BORING MILL OPERATOR 11/25/2013 11:12 AM BORING MILL OPERATOR Cecile Sorensen Julissa PATHOLOGY/CYTOLOGY Final Resu lt [facility] INTERNAL ZIP [id number] [address] [place] [address] * ANTI HIV 1/2 (12/26/2010 5:05 PM BORING MILL OPERATOR) ANTI HIV 1/2 Non-reacti ve [facility] Blood specimen (specimen) BLOOD SPECIMEN / Unknown 12/26/2010 5:05 PM BORING MILL OPERATOR 12/26/2010 4:55 PM BORING MILL OPERATOR us Ladonna Nathan NP SEND OUTS Final Result [facility] INTERNAL ZIP [id number] [address] from Last 3 Months or Most Recently Relevant to Health Maintenance Insurance MEDICARE PB ONLY MEDICARE PART A HB ONLY MEDICARE PART B HB ONLY [id number] (Home) ATTN: FRANK WHITE [phone] [place] [id number] Care Teams Supervisor Case Loading Relationship Specialty Start Date End Date Ermelinda Pierre MD [place] [address] PCP - General Family Practice 06/23/24 Antoinette Palacio, PhD, LP Psychologist Psychology 04/24/12 Gracia Rock, BRYAN [address] [place], [place] [phone] Consulting Physician Clinical Nurse Specialist 07/07/22 Jesika Watt, RD [address] [place] [address] Registered Dietitian Sales Representatives 07/07/22 Staff, Other Clinical . Therapist Mental Health 07/03/22
--- OUTSIDE RECORDS SUMMARY | 2025-06-29 22:54 | XMS_ITS | Encounter Summary ---
Author Organization [facility] Address [address] [place] [address] Care Team Providers Care [employer] Lieutenant Name Role Phone Renzo Andres M.D. Primary Care Provider [phone] Encounter Details Date Type Department Care Team (Latest Contact Info) Description 06/23/2025 Clinical Communication Pedro Nazario [facility] for Transplantation and Clinical Regeneration in [place], [place] [address] [place] [phone] Jessica Rousseau M.B.B.S. [address] [place] [address] Social History Tobacco Use Types Packs/Day Years [...] things needed for daily living? No 06/24/2025 [facility] Utilities Answer [...] [facility] 06/24/2025 Education Answer Date Recorded What is the highest level of school you have completed or the highest degree you have received? Some college, no degree 04/24/2019 Comments No Sex and Gender Information Value Date Recorded Sex Assigned at Female 12/26/2018 8:37 PM LAY OUT MAKER Legal Sex Female 2:43 PM LAY OUT MAKER Gender Identity Female 12/26/2018 8:37 PM LAY OUT MAKER Sexual Orientation Choose not to disclose 2020 3:46 PM CDT documented as of this encounter Plan of Treatment Upcoming Encounters Date Type Department Care Team (Latest Contact Info) Description 06/30/2025 10:20 AM CDT Lab Department of Laboratory Medicine and Pathology, [facility], in [place], [place] [address] [place] [address] Jessica Rousseau M.B.B.S. 200 [place] [address] 06/30/2025 11:00 AM CDT Nurse Only [facility] Transplantation and Clinical Regeneration in [place], [place] [address] [place] [phone] Jessica Rousseau M.B.B.S. [address] [place] [phone] 06/30/2025 11:30 AM CDT Office Visit [facility] Transplantation and Clinical Regeneration in [place], [place] [address] [place] [phone] Jessica Rousseau M.B.B.S. [address] [place] [phone] 06/30/2025 3:00 PM CDT Appointment Department of Radiology, [facility], in [place], [place] [address] [place] [phone] Carlee Armas APRN, C.N.P., D.N.P., M.S.N. [address] [place] [phone] 07/03/2025 8:00 AM CDT Telemedicine Department of Palliative Care in [place], [place] [address] [place] [phone] Yary Landa D.O. [address] [place] [phone] 07/15/2025 9:00 AM CDT Telemedicine [facility] Transplantation and Clinical Regeneration in [place], [place] [address] [place] [phone] Jessica Rousseau M.B.B.S. [address] [place] [phone] 08/11/2025 9:00 AM CDT Nurse Only Section of Infectious Diseases in [place], [place] [address] [place] [address] Jessica Rousseau M.B.B.S. [address] [place] [address] 08/11/2025 10:20 AM CDT Comprehensive Visit Division of Gastroenterology in [place], [place] [address] [place] [address] Jessica Rousseau M.B.B.S. [address] [place] [address] documented as of this encounter Visit Diagnoses Not on filedocumented in this encounter Additional Health Concerns Infection Onset Date Last Indicated Resolved Time Protective Environment 03/02/2023 03/02/2023 Assessment Noted Time PHQ-9 Depression Total Score: 2 12/10/19 25 2:46 PM LAY OUT MAKER documented as of this encounter Care Teams [employer] Lieutenant Relationship Specialty Start Date End Date Renzo Andres M.D. [address] [place] [phone] PCP - General Family Medicine 04/25/23 documented as of this encounter
--- OUTSIDE RECORDS SUMMARY | 2025-06-29 22:54 | XMS_ITS | Encounter Summary ---
Author Organization [facility] Address [address] [place] [address] Care Team Providers Care Gas Leak Inspector Name Role Phone Renzo Andres M.D. Primary Care Provider Reason for Referral * Specialty Diagnoses / Procedures Referred By Estefania acosta Referred To Contact Diagnoses Transplant Stem Cell (HCC) [facility] [address] [place] [address] Phone: tel: [employer] Referral ID Status Reason Start Date Expiration Date Visits Re quested Visits Authorized Encounter Details Date Type Department Care Team (Late st Contact Info) Description 06/22/2025 Orders Only [facility] [place], [facility], Ninth Floor [address] [place] [phone] Vikki Duatre, RKatalinaNKatalina [address] [place] [address] Transplant Stem Cell (HCC) (Primary [...] things needed for daily living? No 06/24/2025 [facility] Utilities Answer Date Recorded In the past 12 months has [facility] electric, gas, oil, or water company threatened to shut off services in your home? No 06/24/2025 Depression Answer Date Recor ded PHQ-9 Total Score (max 27) 2 12/10 Housing Stability Answer Date Recorded What is your living situation today? I have a [facility] place to live 06/24/2025 Education Answer Date Recorded What is the highest level of school you have completed or the highest degree you have received? Some college, no degree 04/24/2019 Comments No Sex and Gender Information Value Date Recorded Sex Assigned at Female 12/26/2018 8:37 PM CONTRACTS ANALYST Legal Sex Female 2:43 PM CONTRACTS ANALYST Gender Identity Female 12/26/2018 8:37 PM CONTRACTS ANALYST Sexual Orientation Choose not to disclose 2020 3:46 PM CDT documented as of this encounter Plan of Treatment Upcoming Encounters Date Type Department Care Team (Latest Contact Info) Description 06/30/2025 10:20 AM CDT Lab Department of Laboratory Medicine and Pathology, [facility], in [place], [place] [address] [place] [address] Jessica Rousseau M.B.B.S. [address] [place] [phone] 06/30/2025 11:00 AM CDT Nurse Only [facility] Transplantation and Clinical Regeneration in [place], [place] [address] [place] [phone] Jessica Rousseau M.B.B.S. [address] [place] [phone] 06/30/2025 11:30 AM CDT Office Visit [facility] Transplantation and Clinical Regeneration in [place], [place] [address] [place] [phone] Jessica Rousseau M.B.B.S. [address] [place] [phone] 06/30/2025 3:00 PM CDT Appointment Department of Radiology, [facility], in [place], [place] [address] [place] [phone] Carlee Armas APRN, C.N.P., D.N.P., M.S.N. [address] [place] [phone] 07/03/2025 8:00 AM CDT Telemedicine Department of Palliative Care in [place], [place] [address] [place] [phone] Yary Landa D.O. [address] [place] [phone] 07/15/2025 9:00 AM CDT Telemedicine [facility] Clinical Regeneration in [place], [place] [address] [place] [address] Jessica Rousseau M.B.B.S. [address] [place] [phone] 08/11/2025 9:00 AM CDT Nurse Only Section of Infectious Diseases in [place], [place] [address] [place] [phone] Jessica Rousseau M.B.B.S. [address] [place] [phone] 08/11/2025 10:20 AM CDT Comprehensive Visit Division of Gastroenterology in [place], [place] [address] [place] [phone] Jessica Rousseau M.B.B.S. [address] [place] [phone] Scheduled Referrals Name Type Priority Associated Diagnoses Order Schedule Hydration Infusion Therapy; Outpatient Referral Routine Transplant Stem Cell (HCC) 1 Occurrences starting 06/22/2025 until 09/22/2026 documented as of this encounter Visit Diagnoses Diagnosis Transplant Stem Cell (HCC)- Primary documented in this encounter Additional Health Concerns Infection Onset Date Last Indicated Resolved Time Protective Environment 03/02/2023 03/02/2023 Assessment Noted Time PHQ-9 Depression Total Score: 2 12/10/19 25 2:46 PM CONTRACTS ANALYST documented as of this encounter Care Teams Gas Leak Inspector Relationship Specialty Start Date End Date Renzo Andres M.D. [address] [place] [phone] PCP - General Family Medicine 04/25/23 documented as of this encounter
--- OUTSIDE RECORDS SUMMARY | 2025-06-29 22:54 | XMS_ITS | Encounter Summary ---
Author Organization [facility] Address [address] [place] [address] Care Team Providers Care Pocket Grinder Operator Name Role Phone Renzo Andres M.D. Primary Care Provider Reason for Visit * Reason Onset Date Comments Phone Contact 06/22/2025 Nausea and abdom inal pain Encounter Details Date Type Department Care Team (Latest Contact Info) Description 06/22/2025 Clinical Communication [facility] in [place], [place] [address] [place] [address] Jessica Rousseau M.B.B.S. [address] [place] [phone] Phone Contact (Nausea and abdominal pain) Social History Tobacco Use Types Packs/Day [...] th e electric, gas, oil, or water [facility] threatened to shut off services in your home? No 06/24/2025 Depression Answer Date Recor ded PHQ-9 Total Score (max 27) 2 12/10 Housing Stability Answer Date Recorded What is your living situation today? I have a [facility] place to live 06/24/2025 Education Answer Date Recorded What is the highest level of school you have completed or the highest degree you have received? Some college, no degree 04/24/2019 Comments No Sex and Gender Information Value Date Recorded Sex Assigned at Female 12/26/2018 8:37 PM SECURITY INSTALLER Legal Sex Female 2:43 PM SECURITY INSTALLER Gender Identity Female 12/26/2018 8:37 PM SECURITY INSTALLER Sexual Orientation Choose not to disclose 2020 3:46 PM CDT documented as of this encounter Miscellaneous Notes * Telephone Encounter - Daniela Mercer R.N., KHANH-CN - 06/22/2025 4:54 PM CDT I called her and sent Dr Rousseau a message in a different encounter documented in this encounter Plan of Treatment Upcoming Encounters Date Type Department Care Team (Latest Contact Info) Description 06/30/2025 10:20 AM CDT Lab Department of Laboratory Medicine and Pathology, [facility], in [place], [place] [address] [place] [phone] Jessica Rousseau M.B.B.S. [address] [place] [phone] 06/30/2025 11:00 AM CDT [facility] in [place], [place] [address] [place] [phone] Jessica Rousseau M.B.B.S. [address] [place] [phone] 06/30/2025 11:30 AM CDT Office Visit Pedro Myla laura [facility] Transplantation and Clinical Regeneration in [place], [place] [address] [place] [phone] Jessica Rousseau M.B.B.S. [address] [place] [phone] 06/30/2025 3:00 PM CDT Appointment Department of Radiology, [facility], in [place], [place] [address] [place] [phone] Carlee Armas APRN, C.N.P., D.N.P., M.S.N. [address] [place] [phone] 07/03/2025 8:00 AM CDT Telemedicine Department of Palliative Care in [place], [place] [address] [place] [phone] Yary Landa D.O. [address] [place] [phone] 07/15/2025 9:00 AM CDT Telemedicine [facility] Trans[facility] Clinical [facility] in [place], [place] [address] [place] [address] Jessica Rousseau M.B.B.S. [address] [place] [phone] 08/11/2025 9:00 AM CDT Nurse Only Section of Infectious Diseases in [place], [place] [address] [place] [address] Jessica Rousseau M.B.B.S. [address] [place] [phone] 08/11/2025 10:20 AM CDT Comprehensive Visit Division of Gastroenterology in [place], [place] [address] [place] [phone] Jessica Rousseau M.B.B.S. [address] [place] [phone] documented as of this encounter Visit Diagnoses Not on filedocumented in this encounter Additional Health Concerns Infection Onset Date Last Indicated Resolved Time Protective Environment 03/02/2023 03/02/2023 Assessment Noted Time PHQ-9 Depression Total Score: 2 12/10/19 25 2:46 PM SECURITY INSTALLER documented as of this encounter Care Teams Pocket Grinder Operator Relationship Specialty Start Date End Date Renzo Andres M.D. [address] [place] [phone] PCP - General Family Medicine 04/25/23 documented as of this encounter
--- OUTSIDE RECORDS SUMMARY | 2025-06-29 22:54 | XMS_ITS | Encounter Summary ---
Author Organization [facility] Address [address] [place] [address] Care Team Providers Care Water Well Driller Name Role Phone Renzo Andres M.D. Primary Care Provider Encounter Details Date Type Department Care Team (Latest Contact Info) Description 06/22/2025 Results Follow-Up [facility] in [place], [place] [address] [place] [phone] Jessica Rousseau M.B.B.S. [address] [place] [phone] BCR/ABL1, p210, mRNA Detection, Reverse Nursing Officer-PCR (RT-PCR), Quantitative, Monitoring Chronic Myeloid Leukemia (CML) Social History Tobacco Use Types Packs/Day Years [...] things needed for daily living? No 06/24/2025 [facility] Utilities Answer Date Recorded In the past 12 months has th e electric, gas, oil, or water company threatened to shut off services in your home? No 06/24/2025 Depression Answer Date Recor ded PHQ-9 Total Score (max 27) 2 12/10 Housing Stability Answer Date Recorded What is your living situation today? I have a [facility] place to live 06/24/2025 Education Answer Date Recorded What is the highest level of school you have completed or the highest degree you have received? Some college, no degree 04/24/2019 Comments No Sex and Gender Information Value Date Recorded Sex Assigned at Female 12/26/2018 8:37 PM PROPELLANT CHARGE LOADER Legal Sex Female 2:43 PM PROPELLANT CHARGE LOADER Gender Identity Female 12/26/2018 8:37 PM PROPELLANT CHARGE LOADER Sexual Orientation Choose not to disclose 2020 3:46 PM CDT documented as of this encounter Plan of Treatment Upcoming Encounters Date Type Department Care Team (Latest Contact Info) Description 06/30/2025 10:20 AM CDT Lab Department of Laboratory Medicine and Pathology, [facility], in [place] [address] [address] [place] [address] Jessica Rousseau M.B.B.S. [address] [place] [address] 06/30/2025 11:00 AM CDT [facility] in [place], [place] [address] [place] [address] Jessica Rousseau M.B.B.S. [address] [place] [phone] 06/30/2025 11:30 AM CDT Office [facility] in [place], [place] [address] [place] [address] Jessica Rousseau M.B.B.S. [address] [place] [phone] 06/30/2025 3:00 PM CDT Appointment Department of Radiology, [facility], in [place], [place] [address] [place] [phone] Carlee Armas APRN, C.N.P., D.N.P., M.S.N. [address] [place] [phone] 07/03/2025 8:00 AM CDT Telemedicine Department of Palliative Care in [place], [place] [address] [place] [address] Yary Landa D.O. [address] [place] [phone] 07/15/2025 9:00 AM CDT Telemedicine [facility] Transplantation and Clinical Regeneration in [place], [place] [address] [place] [address] Jessica Rousseau M.B.B.S. [address] [place] [phone] 08/11/2025 9:00 AM CDT Nurse Only Section of Infectious Diseases in [place], [place] [address] [place] [address] Jessica Rousseau M.B.B.S. [address] [place] [phone] 08/11/2025 10:20 AM CDT Comprehensive Visit Division of Gastroenterology in [place], [place] [address] [place] [address] Jessica Rousseau M.B.B.S. [address] [place] [phone] documented as of this encounter Visit Diagnoses Not on filedocumented in this encounter Additional Health Concerns Infection Onset Date Last Indicated Resolved Time Protective Environment 03/02/2023 03/02/2023 Assessment Noted Time PHQ-9 Depression Total Score: 2 12/10/19 25 2:46 PM PROPELLANT CHARGE LOADER documented as of this encounter Care Teams Water Well Driller Relationship Specialty Start Date End Date Renzo Andres M.D. [address] [place] [phone] PCP - General Family Medicine 04/25/23 documented as of this encounter
--- OUTSIDE RECORDS SUMMARY | 2025-06-29 22:54 | XMS_ITS | Encounter Summary ---
Author Organization [facility] Address [address] [place] [address] Care Team Providers Care Ditch Cleaner Name Role Phone Renzo Andres M.D. Primary Care Provider Reason for Visit * Reason Onset Date Comments Vomiting 06/24/2025 vomiting and abdominal pain 06/24/2025 Encounter Details Date Type Department Care Team (Latest Contact Info) Description 06/24/2025 Clinical Communication Pedro [facility] Transplantation [facility] Clinical Regeneration in [place], [place] [address] [place] [address] Jessica Rousseau M.B.B.S. [address] [place] [phone] Vomiting; vomiting and abdominal pain Social History Tobacco Use Types Packs/Day Years [...] things needed for daily living? No 06/24/2025 [facility] Utilities Answer Date Recorded In the past 12 months has th e electric, gas, oil, or water company threatened to shut off services in your home? No 06/24/2025 Depression Answer Date Recor ded PHQ-9 Total Score (max 27) 2 12/10 Housing Stability Answer Date Recorded What is your living situation today? I have a [facility] place to live 06/24/2025 Education Answer Date Recorded What is the highest level of school you have completed or the highest degree you have received? Some college, no degree 04/24/2019 Comments No Sex and Gender Information Value Date Recorded Sex Assigned at Female 12/26/2018 8:37 PM CONCRETE BUCKET LOADER Legal Sex Female 2:43 PM CONCRETE BUCKET LOADER Gender Identity Female 12/26/2018 8:37 PM CONCRETE BUCKET LOADER Sexual Orientation Choose not to disclose 2020 3:46 PM CDT documented as of this encounter Miscellaneous Notes * Telephone Encounter - Monica Napier R.N., BMT-CN - 06/24/2025 12:17 PM CDT SUBJECTIVE CHIEF COMPLAINT / REASON FOR CALL Vomiting and vomiting and abdominal pain Information Discussed Called patient to discuss recommendations by Dr Rousseau to be admitted. Reinforced to start NPO. PLAN Patient will arrive to [facility] admissions office for [facility] admission. Disposition/Recommendation: Arrive to [facility] admission for BMT admission Information/Education: patient/caller able to teach back Caller agreeable to plan of care: yes The following references were used: nursing clinical judgement and other Dr. Rousseau * Telephone Encounter - Monica Napier R.N., [facility] - 06/24/2025 10:41 AM CDT SUBJECTIVE CHIEF COMPLAINT / REASON FOR CALL Vomiting and vomiting and abdominal pain Information Discussed Patient called in with update. She has tried a salonpas patch because of not able to get insurance approval for the lidocaine patch which she states has not helped. PLAN Patient is requesting some other treatment and or investigation for pain . Disposition/Recommendation: notified provider and awaiting recommendations Information/Education: patient/caller able to teach back Caller agreeable to plan of care: yes The following references were used: nursing clinical judgement * Telephone Encounter - Monica Napier R.N., [facility] - 06/24/2025 9:18 AM CDT SUBJECTIVE CHIEF COMPLAINT / REASON FOR CALL Vomiting and abdominal pain Information Discussed Patient contacted. She stated yesterday she was nauseated with abdominal pain. Since last night shehas been vomiting with ongoing abdominal pain. Rates pain 7/10 and is in the left lower quadrant. She is on Compazine 10 mg q6h, using Zofran in between, Started Budesonide 3 mg last evening. No blood in emesis. Diarrhea better since taking Imodium last night. She has not been able to get her lidocaine patch yet as working with insurance. Patient was in tears due to abdominal pain. PLAN Instructed her to take her Budesonide this am and continue to take in am. Any other recommendations? Disposition/Recommendation: notified provider and awaiting recommendations Information/Education: patient/caller able to teach back Caller agreeable to plan of care: yes The following references were used: nursing clinical judgement documented in this encounter Plan of Treatment Upcoming Encounters Date Type Department Care Team (Latest Contact Info) Description 06/30/2025 10:20 AM CDT Lab Department of Laboratory Medicine and Pathology, [facility] in [place], [place] [address] [place] [phone] Jessica Rousseau M.B.B.S. [address] [place] [phone] 06/30/2025 11:00 AM CDT Nurse Only [facility] Transplantation and Clinical Regeneration in [place], [place] [address] [place] [phone] Jessica Rousseau M.B.B.S. [address] [place] [phone] 06/30/2025 11:30 AM CDT Office Visit [facility] Transplantation and Clinical Regeneration in [place], [place] [address] [place] [phone] Jessica Rousseau M.B.B.S. [address] [place] [phone] 06/30/2025 3:00 PM CDT Appointment Department of Radiology, [facility], in [place], [place] [address] [place] [phone] Carlee Armas APRN, C.N.P., D.N.P., M.S.N. [address] [place] [phone] 07/03/2025 8:00 AM CDT Telemedicine Department of Palliative Care in [place], [place] [address] [place] [phone] Yary Landa D.O. [address] [place] [phone] 07/15/2025 9:00 AM CDT Telemedicine [facility] for Transplantation and Clinical Regeneration in [place], [place] [address] [place] [phone] Jessica Rousseau M.B.B.S. [address] [place] [phone] 08/11/2025 9:00 AM CDT Nurse Only Section of Infectious Diseases in [place], [place] [address] [place] [phone] Jessica Rousseau M.BKatalinaB.S. [address] [place] [phone] 08/11/2025 10:20 AM CDT Comprehensive Visit Division of Gastroenterology in [place], [place] [address] [place] [phone] Jessica Rousseau M.B.B.S. [address] [place] [phone] documented as of this encounter Visit Diagnoses Not on filedocumented in this encounter Additional Health Concerns Infection Onset Date Last Indicated Resolved Time Protective Environment 03/02/2023 03/02/2023 Assessment Noted Time PHQ-9 Depression Total Score: 2 12/10/19 25 2:46 PM CONCRETE BUCKET LOADER documented as of this encounter Care Teams Ditch Cleaner Relationship Specialty Start Date End Date Renzo Andres M.D. [address] [place] [phone] PCP - General Family Medicine 04/25/23 documented as of this encounter
--- OUTSIDE RECORDS SUMMARY | 2025-06-29 22:54 | XMS_ITS | Encounter Summary ---
Author Organization [facility] Address [address] [place] [address] Care Team Providers Care Sample Distributor Name Role Phone Renzo Andres M.D. Primary Care Provider [phone] Reason for Referral * Outpatient (Routine) - Authorized Specialty Diagnoses / Procedures Referred By Contheidy t Referred To Contact Renzo Andres M.D. [address] [place] [address] Phone: tel: fax: [facility] Region Referral ID Status Reason Start Date Expiration Date V isits Requested Visits Authorized [id number] Authorized 06/23/2025 12/23/2026 1 1 Scheduling Instructions Nurse AWV Do not schedule prior to due date to ensure insurance coverage Visit: Medicare Annual Wellness Never done. Encounter Details Date Type Department Care Team (Late st Contact Info) Description 06/23/2025 Orders Only [facility] PCP TH MNT Renzo Andres M.D. [address] [place] [address] Social History Tobacco Use Types Packs/Day Years [...] things needed for daily living? No 06/24/2025 [facility] Utilities Answer Date Recorded In the past 12 months has e [employer], gas, oil, or water [employer] threatened to shut off services in your home? No 06/24/2025 Depression Answer Date Recor ded PHQ-9 Total Score (max 27) 2 12/10 Housing Stability Answer Date Recorded What is your living situation today? I have a [facility] place to live 06/24/2025 Education Answer Date Recorded What is the highest level of school you have completed or the highest degree you have received? Some college, no degree 04/24/2019 Comments No Sex and Gender Information Value Date Recorded Sex Assigned at Female 12/26/2018 8:37 PM PEDIATRIC ORTHODONTIST Legal Sex Female 2:43 PM PEDIATRIC ORTHODONTIST Gender Identity Female 12/26/2018 8:37 PM PEDIATRIC ORTHODONTIST Sexual Orientation Choose not to disclose 2020 3:46 PM CDT documented as of this encounter Plan of Treatment Upcoming Encounters Date Type Department Care Team (Latest Contact Info) Description 06/30/2025 10:20 AM CDT Lab Department of Laboratory Medicine and Pathology, [facility], in [place], [place] [address] [place] [address] Jessica Rousseau M.B.B.S. [address] [place] [phone] 06/30/2025 11:00 AM CDT Nurse Only [facility] Transplantation and Clinical Regeneration in [place], [place] [address] [place] [phone] Jessica Rousseau M.B.B.S. [address] [place] [phone] 06/30/2025 11:30 AM CDT Office Visit [facility] Transplantation and Clinical Regeneration in [place], [place] [address] [place] [phone] Jessica Rousseau M.B.B.S. [address] [place] [phone] 06/30/2025 3:00 PM CDT Appointment Department of Radiology, [facility], in [place], [place] [address] [place] [phone] Carlee Armas APRN, C.N.P., D.N.P., M.S.N. [address] [place] [phone] 07/03/2025 8:00 AM CDT Telemedicine Department of Palliative Care in [place], [place] [address] [place] [phone] Yary Landa D.O. [address] [place] [phone] 07/15/2025 9:00 AM CDT [facility]icine [facility] in [place], [place] [address] [place] [phone] Jessica Rousseau M.B.B.S. [address] [place] [phone] 08/11/2025 9:00 AM CDT Nurse Only Section of Infectious Diseases in [place], [place] [address] [place] [phone] Jessica Rousseau M.B.B.S. [address] [place] [phone] 08/11/2025 10:20 AM CDT Comprehensive Visit Division of Gastroenterology in [place], [place] [address] [place] [phone] Jessica Rousseau M.B.B.S. [address] [place] [phone] Scheduled Referrals Name Type Priority Associated Diagnoses Orde r Schedule Primary Care nurse visit (clinic) - [facility] Region; Medicare Annual Wellness Outpatient Referral Routine Expected: 07/21/2025, Expires: 12/10/2025 documented as of this encounter Visit Diagnoses Not on filedocumented in this encounter Additional Health Concerns Infection Onset Date Last Indicated Resolved Time Protective Environment 03/02/2023 03/02/2023 Assessment Noted Time PHQ-9 Depression Total Score: 2 12/10/19 25 2:46 PM PEDIATRIC ORTHODONTIST documented as of this encounter Care Teams Sample Distributor Relationship Specialty Start Date End Date Renzo Andres M.D. [address] [place] [phone] PCP - General Family Medicine 04/25/23 documented as of this encounter
--- OUTSIDE RECORDS SUMMARY | 2025-06-29 22:55 | XMS_ITS | Encounter Summary ---
Author Organization [facility] Address [address] [place] [address] Care Team Providers Care Codifier Name Role Phone Renzo Andres M.D. Primary Care Provider Reason for Visit * Reason Onset Date Comments Nurse Assessment 06/02/2025 Encounter Details Date Type Department Care Team (Latest Contact Info) Description 06/02/2025 Clinical Communication Pedro [facility] in [place], [place] [address] [place] [address] Transplant, Coordinator, RFritz Nurse Assessment Social History Tobacco Use Types Packs/Day Years Used Date Smoking Tobacco: Never Smokeless Tobacco: Never Alcohol Use Standard Drinks/Week Comments Yes 0 (1 standard drink = 0.6 oz pur e alcohol) social [facility] Utilities Answer Date Recorded In the [...] your living situation today? I have a [facility] place to live 05/28/2025 Education Answer Date Recorded What is the highest level of school you have completed or the highest degree you have received? Some college, no degree 04/24/2019 Comments No Sex and Gender Information Value Date Recorded Sex Assigned at Female 12/26/2018 8:37 PM INSPECTOR HEATING AND REFRIGERATION Legal Sex Female 2:43 PM INSPECTOR HEATING AND REFRIGERATION Gender Identity Female 12/26/2018 8:37 PM INSPECTOR HEATING AND REFRIGERATION Sexual Orientation Choose not to disclose 2020 [...] and Pathology, [facility] in [place], [place] [address] [place] [address] Jessica Rousseau M.B.B.S. [address] [place] [phone] 06/30/2025 11:00 AM CDT [facility] in [place], [place] [address] [place] [address] Jessica Rousseau M.B.B.S. [address] [place] [phone] 06/30/2025 11:30 AM CDT [facility] [place], [place] [address] [place] [address] Jessica Rousseau M.B.B.S. [address] [place] [phone] 06/30/2025 3:00 PM CDT Appointment Department of Radiology, [facility], in [place], [place] [address] [place] [address] Carlee Armas APRN, Satnam.NKatalinaP., D.N.P., M.S.N. [address] [place] [phone] 07/03/2025 8:00 AM CDT Telemedicine Department of Palliative Care in [place], [place] [address] [place] [phone] Yary Landa D.O. [address] [place] [phone] 07/15/2025 9:00 AM CDT Telemedicine [facility] Clinical Regeneration in [place], [place] [address] [place] [phone] Jessica Rousseau M.B.B.S. [address] [place] [phone] 08/11/2025 9:00 AM CDT Nurse Only Section of Infectious Diseases in [place], [place] [address] [place] [phone] Jessica Rousseau M.B.B.S. [address] [place] [phone] 08/11/2025 10:20 AM CDT Comprehensive Visit Division of Gastroenterology in [place], [place] [address] [place] [phone] Jessica Rousseau M.B.B.S. [address] [place] [phone] documented as of this encounter Visit Diagnoses Not on filedocumented in this encounter Additional Health Concerns Infection Onset Date Last Indicated Resolved Time Protective Environment 03/02/2023 03/02/2023 Assessment Noted Time PHQ-9 Depression Total Score: 2 12/10/19 25 2:46 PM INSPECTOR HEATING AND REFRIGERATION documented as of this encounter Care Teams Codifier Relationship Specialty Start Date End Date Renzo Andres M.D. [address] [place] [phone] PCP - General Family Medicine 04/25/23 documented as of this encounter
[2025-06-29 23:26] LABS: Hematocrit 37.1 % (33.0-51.0); Hemoglobin* 12.2 gm/dL (12.0-16.0); Immature Granulocytes Abs Auto 0.16 K/uL (0.00-0.30); Immature Granulocytes Pct Auto 3.0 %; Mean Corpuscular HGB Conc 33 gm/dL (32-36); Mean Corpuscular Hemoglobin 28 pg (26-34); Mean Corpuscular Volume 84 fL (80-100); RDW Coefficient of Variation % 13.9 % (11.5-15.5); Red Blood Count 4.44 m/uL (4.00-5.20); White Blood Count* 5.31 K/uL (4.50-11.00)
[2025-06-29 23:28] LABS: Lymphocytes Absolute Auto 0.90 K/uL (0.90-2.90); Slide Review Reflex No
[2025-06-29] MEDS: MORPHINE 4 MG/ML INJ IVP (23:33)
[2025-06-29 23:38] LABS: Chloride* 103 mmol/L (96-114)
[2025-06-29 23:39] LABS: Albumin* 4.2 g/dL (3.3-5.0); Potassium* 3.7 mmol/L (3.6-5.1); Sodium* 138 mmol/L (135-149)
[2025-06-29 23:41] LABS: Blood Urea Nitrogen* 15 mg/dL (5-24); Creatinine* 0.7 mg/dL (0.5-1.5); Est. Creatinine Clearance* 112.08; Estimated Glomerular Filt Rate 115 ml/min
[2025-06-29 23:42] VITALS: PULSE 72; O2SAT 94
[2025-06-29 23:42] LABS: Alanine Aminotransferase* 33 U/L (4-35); Alkaline Phosphatase* 102 U/L (40-150); Anion Gap 8 mEq/L (7-15); Aspartate Amino Transferase* 24 U/L (12-35); Bilirubin Direct* 0.2 mg/dL (0.0-0.5); Bilirubin Total* 0.2 mg/dL (0.1-1.5); Calcium* 9.5 mg/dL (8.4-10.6); Carbon Dioxide* 27 mmol/L (20-32); Glucose* 93 mg/dL (60-115); Total Protein* 7.5 g/dL (6.0-8.3)
[2025-06-29 23:45] VITALS: PULSE 69; O2SAT 95
[2025-06-30] VITALS: PULSE 68; O2SAT 94
[2025-06-30 00:28] VITALS: BP 128/86; PULSE 67; RESP 18
== END 2025-06-30 00:30 | disposition home or self-care (01) ==
PROVIDERS: Emergency Provider Family Medicine; PCP Registered Nurse
DX: R10.32 Left lower quadrant pain (principal)
CPT/HCPCS: 36415; 80048; 80076; 85025; 86140; 94761; 96374; 99284; J2270; J7030

== ENCOUNTER 2025-07-02 01:28 | Emergency (ER) | payer MEDICARE, BC, SELFPAY ==
--- OUTSIDE RECORDS SUMMARY | 2025-05-20 09:00 | XMS_ITS | Encounter Summary ---
Author Organization [facility] Address [address] [place] [address] Care Team Providers Care Print Buyer Name Role Phone Renzo Andres M.D. Primary Care Provider [phone] Reason for Visit * Outpatient (Routine) - Closed Specialty Diagnoses / Procedures Referred By Estefania t Referred To Contact Pharmacy Lito Pollock P.A.-C. [address] [place] [phone] Phone: tel: fax: [facility] Referral ID Status Reason Start Date Expiration Date Visits Re quested Visits Authorized [id number] Closed 04/29/2025 10/29/2026 1 1 Encounter Details Date Type Department Care Team (Latest Contact Info) Description 05/20/2025 9:00 AM CDT [facility] in [place], [place] [address] [place] [phone] Lito Pollock P.A.-C. [address] [place] [phone] Nelli Parker, Pharm.D., R.Ph. [address] [place] [phone] Transplant Bone Marrow Allogeneic (HCC) (Primary Dx) Discharge Disposition: Home or Self Care Social History Tobacco Use Types Packs/Day Years Used Date Smoking Tobacco: Never Smokeless Tobacco: Never Alcohol Use Standard Drinks/Week Comments Yes 0 (1 standard drink = 0.6 oz pur e alcohol) social [facility] Utilities Answer Date Recorded In [...] your living situation today? I have a [facility] place to live 12/19/2024 Education Answer Date Recorded What is the highest level of school you have completed or the highest degree you have received? Some college, no degree 04/24/2019 Comments No Sex and Gender Information Value Date Recorded Sex Assigned at Female 12/26/2018 8:37 PM PIG IRON LOADER Legal Sex Female 2:43 PM PIG IRON LOADER Gender Identity Female 12/26/2018 8:37 PM PIG IRON LOADER Sexual Orientation Choose not to disclose 2020 [...] 05/20/2025 9:00 AM CDT Medication Management Services ([facility]) SUBJECTIVE Radha Martinez is a 35 y.o. female, who is seen by the [facility] Pharmacist for targeted medication review. She was [...] Camargo; Surgeon: Brianna Hernandez M.D., Ph.D.; Location: [facility] OR [7] Patient Active Problem List Diagnosis [...] Department Care Team (Latest Contact Info) Description 07/03/2025 8:00 AM CDT Telemedicine Department of Palliative Care in [place], [place] [address] [place] [phone] Yary Landa D.O. [address] [place] [phone] 07/15/2025 9:00 AM CDT Telemedicine [facility] Aravind [facility] for Transplantation and Clinical Regeneration in [place], [place] [address] [place] [phone] Jessica Rousseau M.B.B.S. [address] [place] [phone] 08/11/2025 9:00 AM CDT Nurse Only Section of Infectious Diseases in [place], [place] [address] [place] [phone] Jessica Rousseau M.B.B.S. [address] [place] [phone] 08/11/2025 10:20 AM CDT Comprehensive Visit Division of Gastroenterology in [place], [place] [address] [place] [phone] Jessica Rousseau M.B.B.S. [address] [place] [phone] 08/11/2025 1:00 PM CDT Clinical Support Department of Palliative Care in [place], [place] [address] [place] [phone] Uma Aly APRN, C.N.P., M.S.N. [address] [place] [phone] 08/13/2025 10:00 AM CDT Lab Department of Laboratory Medicine and Pathology, [facility], in [place], [place] [address] [place] [address] Jessica Rousseau M.B.B.S. [address] [place] [phone] 08/13/2025 10:30 AM CDT Office Visit Pedro Lanza laura [facility] for Transplantation and Clinical Regeneration in [place], [place] [address] [place] [phone] Jessica Rousseau M.B.B.S. [address] [place] [phone] 08/13/2025 11:00 AM CDT Nurse Only [facility] [place] for Transplantation and Clinical Regeneration in [place], [place] [address] [place] [address] Jessica Rousseau M.B.B.S. [address] [place] [phone] 08/13/2025 11:30 AM CDT [facility] in [place], [place] [address] [place] [address] Jessica Rousseau M.B.B.S. [address] [place] [phone] documented as of this encounter Visit Diagnoses Diagnosis Transplant Bone Marrow Allogeneic (HCC)- Primary documented in this encounter Additional Health Concerns Infection Onset Date Last Indicated Resolved Time Protective Environment 03/02/2023 03/02/2023 Assessment Noted Time PHQ-9 Depression Total Score: 2 12/10/19 25 2:46 PM PIG IRON LOADER documented as of this encounter Care Teams Print Buyer Relationship Specialty Start Date End Date Renzo Andres M.D. [address] [place] [phone] PCP - General Family Medicine 04/25/23 documented as of this encounter
--- OUTSIDE RECORDS SUMMARY | 2025-05-20 09:30 | XMS_ITS | Encounter Summary ---
Author Organization [facility] Address [address] [place] [id number] Care Team Providers Care Locker Attendant Name Role Phone Renzo Andres M.D. Primary Care Provider [phone] Reason for Referral * Transplant (Routine) - Closed Specialty Diagnoses / Procedures Referred By Estefania acosta Referred To Contact Transplant Tessa Jesus APRN, C.N.PKatalina, D.N.P. [address] [place] [phone] Phone: tel: fax: [facility] Referral ID Status Reason Start Date Expiration Date Visits Re quested Visits Authorized [id number] Closed 05/20/2025 11/19/2026 1 1 * Outpatient (Routine) - Closed Specialty Diagnoses / Procedures Referred By Contac t Referred To Contact Pharmacy Tessa Jesus APRN, C.N.P., D.N.P. [address] [place] [phone] Phone: tel: fax: [facility] Referral ID Status Reason Start Date Expiration Date Visits Re quested Visits Authorized [id number] Closed 05/20/2025 11/19/2026 1 1 Scheduling Instructions Please schedule with pharmacist for 30 minutes. Patient type: Allo Over 100 Visit Type: Return Scheduling Preferences Option 1: Primary MD only/RN Option 2: Primary MD only/RN Other Scheduling Instructions: Please schedule approximately 1 week after BmBx on 06/15 Primary MD: Dr Rousseau RN Team: t Bmt Team Two Sheldon * Transplant (Routine) - Closed Specialty Diagnoses / Procedures Referred By Contac t Referred To Contact Transplant Tessa Jesus APRN, C.N.P., D.N.P. [address] [place] [phone] Phone: tel: fax: [facility] Referral ID Status Reason Start Date Expiration Date Visits Re quested Visits Authorized [id number] Closed 05/20/2025 11/19/2026 1 1 Scheduling Instructions Please schedule with BMT MD for 30 minutes. Patient type: Allo Over 100 Visit Type: Return Scheduling Preferences Option 1: Primary MD only/RN Option 2: Primary MD only/RN Other Scheduling Instructions: Please schedule approximately 1 week after BmBx on 06/15 Primary MD: Dr Rousseau RN Team: [facility] Bmt Team Two Sheldon * Transplant (Routine) - Closed Specialty Diagnoses / Procedures Referred By Contac t Referred To Contact Transplant Tessa Jesus APRN C.N.PKatalina, D.N.P. [address] [place] [phone] Phone: tel: fax: [facility] Referral ID Status Reason Start Date Expiration Date Visits Re quested Visits Authorized [id number] Closed 05/20/2025 11/19/2026 1 1 Scheduling Instructions Please schedule with RNCC for 30 min Patient type: Allo Over 100 Visit Type: Return Scheduling Preferences Option 1: Primary MD only/RN Option 2: Primary MD only/RN Other Scheduling Instructions: Please schedule approximately 1 week after BmBx on 06/15 Primary MD: Dr Rousseau RN Team: Rst Bmt Team Two Sheldon Reason for Visit * Reason Comments Nurse Visit * Transplant (Routine) - Closed Specialty Diagnoses / Procedures Referred By Estefania t Referred To Contact Transplant Lito Pollock P.A.-C. [address] [place] [phone] Phone: tel: fax: [facility] Referral ID Status Reason Start Date Expiration Date Visits Re quested Visits Authorized [id number] Closed 04/29/2025 10/29/2026 1 1 Encounter Details Date Type Department Care Team (Latest Contact Info) Description 05/20/2025 9:30 AM CDT [facility] [place], [place] [address] [place] [phone] Lito Pollock P.A.-C. 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 I have a [facility] place to live 12/19/2024 Education Answer Date Recorded What is the highest level of school you have completed or the highest degree you have received? Some college, no degree 04/24/2019 Comments No Sex and Gender Information Value Date Recorded Sex Assigned at Female 12/26/2018 8:37 PM BARREL AND RECEIVER ALIGNER Legal Sex Female 2:43 PM BARREL AND RECEIVER ALIGNER Gender Identity Female 12/26/2018 8:37 PM BARREL AND RECEIVER ALIGNER Sexual Orientation Choose not to disclose 2020 3:46 PM CDT documented as of this encounter Progress Notes * Tessa Jesus, KARON, C.N.P., D.N.P. - 05/20/2025 9:30 AM CDT SUBJECTIVE TRANSPLANT PHYSICIAN Dr. Jessica Rousseau, pager [phone] CHIEF COMPLAINT/REASON FOR VISIT Ms. Radha Martinez [...] reticulin fibrosis noted. The cytogenetics identified a [place] chromosome in 20 metaphases. The BCR-ABL1 P [...] t(9;22) metaphases. 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 06/17/2024: feeling quite symptomatic since the [...] Access [place]argo CVC placed on 12/03/24 by [facility]. Social Work Seen and cleared on 10/29/24 [...] prophylaxis: Ursodiol 600 mg two times daily. [facility] ID Number: [id number] [...] HISTORY 05/20/25 Day+161 Radha Martinez presents to [place] [address] for routine follow-up. Main concern today for [...] We will try to arrange a return [place] [address] Soham parekh days after [...] donor DNA and approximately 40% recipient DNA. [id number]% donor DNA and approximately 0% recipient DNA. [...] right eye. Wears glasses. - Followed by [facility] in [place], [place]. - Patient will notify team if [...] as she is on a waitlist with [facility]. GI: experiencing nausea and dry heaving in [...] CDT Telemedicine Department of Palliative Care in [place], [place] [address] [place] [phone] Yary Landa D.O. [address] [place] [phone] 07/15/2025 9:00 AM CDT Telemedicine Pedro Aravind [facility] for Transplantation and Clinical Regeneration in [place], [place] [address] [place] [phone] Jessica Rousseau M.B.B.S. [address] [place] [phone] 08/11/2025 9:00 AM CDT Nurse Only Section of Infectious Diseases in [place], [place] [address] [place] [phone] Jessica Rousseau M.B.B.S. [address] [place] [phone] 08/11/2025 10:20 AM CDT Comprehensive Visit Division of Gastroenterology in [place], [place] [address] [place] [phone] Jessica Rousseau M.B.B.S. [address] [place] [phone] 08/11/2025 1:00 PM CDT Clinical Support Department of Palliative Care in [place], [place] [address] [place] [address] Uma Aly APRN, C.N.P., M.S.N. [address] [place] [phone] 08/13/2025 10:00 AM CDT Lab Department of Laboratory Medicine and Pathology, [facility], in [place], [place] [address] [place] [address] Jessica Rousseau M.B.B.S. [address] [place] [phone] 08/13/2025 10:30 AM CDT Office Visit Pedro sanchez [facility] for Trans[facility] in [place], [place] [address] [place] [address] Jessica Rousseau M.B.B.S. [address] [place] [phone] 08/13/2025 11:00 AM CDT Nurse [facility] in [place], [place] [address] [place] [address] Jessica Rousseau M.B.B.S. [address] [place] [phone] 08/13/2025 11:30 AM CDT Office Visit Pedro Nazario [facility] for Transplantation and Clinical Regeneration in [place], [place] [address] [place] [address] Jessica Rousseau M.B.B.S. [address] [place] [phone] Scheduled Referrals Name Type Priority Associated Diagnoses [...] Results * BCR/ABL1, p210, mRNA Detection, Reverse Corporate Travel Counselor-PCR (RT-PCR), Quantitative, Monitoring Chronic Myeloid Leukemia (CML) [...] level was evaluated using a quantitative, reverse air quality chemist PCR. The analytical sensitivity of this assay [...] all possible fusion forms. Please contact the [facility] at [phone] with questions or if additional testing is required. See the [facility] Interpretive Handbook for method details. [...] developed and its performance characteristics determined by [facility] in a manner consistent with CLIA requirements. This test has not been cleared or approved by the U.S. Food and Drug Administration. Blood (Blood, Venous) 06/23/2025 8:18 AM CDT 06/23/2025 8:58 AM CDT Tessa Jesus APRN, C.N.P., D.N.P. LAB BLOOD NON ADD-ON Final Result [facility] [address] [place] [address], [facility] [address] [place] [address] * LD (Lactate Dehydrogenase) (06/23/2025 8:18 AM CDT) [facility] Deanna LD 165 122 - 222 U/L 06/23/2025 9:34 AM CDT DTL Blood (Blood, Venous) 06/23/2025 8:18 AM CDT 06/23/2025 8:41 AM CDT Tessa Jesus APRN, Satnam.N.P., D.N.P. LAB BLOOD NON ADD-ON Final Result [facility] [address] 200 [place] [address] * Sodium (06/23/2025 8:18 AM CDT) Sodium, S 139 135 - 145 mmol/L 06/23/2025 9:29 AM CDT DT Blood (Blood, Venous) 06/23/2025 8:18 AM CDT 06/23/2025 8:25 AM CDT Tessa Jesus APRN, Satnam.N.P., D.N.P. LAB BLOOD ADD -ON Final Result Performing Organization Address City/[facility]/ZIP Co de Phone Number [facility] [address] 200 [place] [address] * Potassium (06/23/2025 8:18 AM CDT) Potassium, S 4.2 3.6 - 5.2 mmol/L 06/23/2025 9:29 AM CDT DTL Blood (Blood, Venous) 06/23/2025 8:18 AM CDT 06/23/2025 8:25 AM CDT Tessa Jesus APRN, C.N.P., D.N.P. LAB BLOOD ADD -ON Final Result [facility] [address] [place] [address] * Magnesium (06/23/2025 8:18 AM CDT) Magnesium, S 2.2 1.7 - 2.3 mg/dL 06/23/2025 9:29 AM CDT DTL Blood (Blood, Venous) 06/23/2025 8:18 AM CDT 06/23/2025 8:25 AM CDT Tessa Jesus APRN, C.N.P., D.N.P. LAB BLOOD ADD -ON Final Result Performing Organization Address City/[facility]/ZIP Co de Phone Number [facility] 200 [place], [place] [phone] [place] [address] DTFormerly named [facility] 200 [place] [address] * (ABNORMAL) Glucose, Fasting (06/23/2025 8:18 AM CDT) Pathologist [facility] Glucose, P 153(H) 70 - 100 mg/dL 06/23/2025 9:02 AM CDT DTL Last Intake 1 hr 06/23/2025 8:25 AM CDT DTL Blood (Blood, Venous) 06/23/2025 8:18 AM CDT 06/23/2025 8:25 AM CDT Tessa Jesus APRN C.N.P., D.N.P. LAB BLOOD NON ADD-ON Final Result [facility] 200 [place], [place] [phone] [place] [address] DTFormerly named [facility] 200 [place] [address] * Creatinine with Estimated GFR (06/23/2025 8:18 AM CDT) Pathologist [facility] Creatinine 0.91 0.59 - 1.04 mg/dL 06/23/2025 9:29 AM CDT DTL Estimated GFR (eGFR) 84 >=60 mL/min/BSA 06/23/2025 9:29 AM CDT DTL Comment: Estimated GFR calculated using the 2020 CKD_EPI creatinine equation. Blood (Blood, Venous) 06/23/2025 8:18 AM CDT 06/23/2025 8:25 AM CDT Tessa Marisa Jesus APRN C.N.P., D.N.P. LAB BLOOD ADD -ON Final Result [facility] [address] [place] [address], [facility] DTL [facility] [address] [place] [address] * (ABNORMAL) CBC no call back, reflex [...] 8:18 AM CDT 06/23/2025 8:30 AM CDT Tessa Jesus APRN, C.N.P., D.N.P. LAB BLOOD NON ADD-ON Final Result [facility] [address] [place] [address] * Calcium, Total (06/23/2025 8:18 AM CDT) Calcium, Total, S 9.4 8.6 - 10.0 mg/dL 06/23/2025 9:29 AM CDT DTL Blood (Blood, Venous) 06/23/2025 8:18 AM CDT 06/23/2025 8:25 AM CDT Tessa Jesus APRN, C.N.P., D.N.P. LAB BLOOD ADD -ON Final Result [facility] 200 [place], [place] [phone] [place] [address] 200 [place] [address] * BUN (Blood Urea Nitrogen) (06/23/2025 8:18 AM CDT) BUN (Blood Urea Nitrogen), S 10 6 - 21 mg/dL 06/23/2025 9:29 AM CDT DTL Blood (Blood, Venous) 06/23/2025 8:18 AM CDT 06/23/2025 8:25 AM CDT us Satnam Navarro APRN.N.P., D.N.P. LAB BLOOD ADD -ON Final Result [facility] 200 [place] [address], [facility] DTL [facility] 200 [place] [address] * Bilirubin, Total (06/23/2025 8:18 AM CDT) Bilirubin, Total, P 0.2 0.0 - 1.2 mg/dL 06/23/2025 9:13 AM CDT METH Blood (Blood, Venous) 06/23/2025 8:18 AM CDT 06/23/2025 8:42 AM CDT us Tessa Jesus APRN, Satnam.N.P., D.N.P. LAB BLOOD ADD -ON Final Result Performing Organization Address City/[facility]/ZIP Co de Phone Number [facility] [address] [place] [phone], [facility] METH [facility] 200 [place] [address] * (ABNORMAL) AST (Aspartate Aminotransferase) (06/23/2025 8:18 AM CDT) Aspartate Aminotransferase (AST), P 54(H) 8 - 43 U/L 06/23/2025 9:13 AM CDT METH Blood (Blood, Venous) 06/23/2025 8:18 AM CDT 06/23/2025 8:42 AM CDT us Tessa Jesus APRN, Satnam.N.P., D.N.P. LAB BLOOD ADD -ON Final Result Performing Organization Address City/[facility]/ZIP Co de Phone Number [facility] [address] [place] [address], [facility] METH [facility] 200 [place] [address] * (ABNORMAL) ALT (Alanine Aminotransferase) (06/23/2025 8:18 AM CDT) Alanine Aminotransferase (ALT), S 75(H) 7 - 45 U/L 06/23/2025 9:29 AM CDT DTL Blood (Blood, Venous) 06/23/2025 8:18 AM CDT 06/23/2025 8:25 AM CDT Tessa Jesus APRN, C.N.P., D.N.P. LAB BLOOD ADD -ON Final Result [facility] 200 [place] [address] * (ABNORMAL) Alkaline Phosphatase (06/23/2025 8:18 AM CDT) Alkaline Phosphatase, S 115(H) 35 - 104 U/L 06/23/2025 9:29 AM CDT DT Blood (Blood, Venous) 06/23/2025 8:18 AM CDT 06/23/2025 8:25 AM CDT Tessa Jesus APRN, C.N.P., D.N.P. LAB BLOOD ADD -ON Final Result [facility] 200 [place] [address] * Albumin (06/23/2025 8:18 AM CDT) Albumin, S 4.3 3.5 - 5.0 g/dL 06/23/2025 9:29 AM CDT DTL Blood (Blood, Venous) 06/23/2025 8:18 AM CDT 06/23/2025 8:25 AM CDT Tessa Cunningham Jamari Jesus APRNNKatalinaP., D.N.P. 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 [address] [place] [phone] PCP - General Family Medicine 04/25/23 documented as of this encounter
--- OUTSIDE RECORDS SUMMARY | 2025-05-25 13:45 | XMS_ITS | Encounter Summary ---
Author Organization [facility] Address [address] [place] [address] Care Team Providers Care Video Production Intern Name Role Phone Renzo Andres M.D. Primary Care Provider [phone] Encounter Details Date Type Department Care Team (Late st Contact Info) Description 05/25/2025 1:45 PM CDT Patient [facility] in [place], [place] [address] [place] [address] Ta Medrano Social History Tobacco Use Types Packs/Day Years Used Date Smoking Tobacco: Never Smokeless Tobacco: Never Alcohol Use Standard Drinks/Week Comments Yes 0 (1 standard drink = 0.6 oz pur e alcohol) social C Utilities Answer Date Recorded In the past 12 months has e [employer], gas, oil, or water [employer] threatened to shut off services in your [...] your living situation today? I have a [facility] place to live 12/19/2024 Education Answer Date Recorded What is the highest level of school you have completed or the highest degree you have received? Some college, no degree 04/24/2019 Comments No Sex and Gender Information Value Date Recorded Sex Assigned at Female 12/26/2018 8:37 PM CHILDHOOD DEVELOPMENT TEACHER Legal Sex Female 2:43 PM CHILDHOOD DEVELOPMENT TEACHER Gender Identity Female 12/26/2018 8:37 PM CHILDHOOD DEVELOPMENT TEACHER Sexual Orientation Choose not to disclose 2020 [...] the patient navigation team with any questions. [facility] [phone]. documented in this encounter Plan of Treatment Upcoming Encounters Date Type Department Care Team (Latest Contact Info) Description 07/03/2025 8:00 AM CDT Telemedicine Department of Palliative Care in [place], [place] [address] [place] [phone] Yary Landa D.O. [address] [place] [phone] 07/15/2025 9:00 AM CDT Telemedicine [facility] for Transplantation and Clinical Regeneration in [place], [place] [address] [place] [phone] Jessica Rousseau M.B.B.S. [address] [place] [phone] 08/11/2025 9:00 AM CDT Nurse Only Section of Infectious Diseases in [place], [place] [address] [place] [phone] Jessica Rousseau M.B.B.S. [address] [place] [phone] 08/11/2025 10:20 AM CDT Comprehensive Visit Division of Gastroenterology in [place], [place] [address] [place] [phone] Jessica Rousseau M.B.B.S. [address] [place] [phone] 08/11/2025 1:00 PM CDT Clinical Support Department of Palliative Care in [place], [place] [address] [place] [phone] Uma Aly APRN, C.N.P., M.S.N. [address] [place] [phone] 08/13/2025 10:00 AM CDT Lab Department of Laboratory Medicine and Pathology, [facility], in [place], [place] [address] [place] [phone] Jessica Rousseau M.B.B.S. [address] [place] [phone] 08/13/2025 10:30 AM CDT Office Visit [facility] Transplantation and Clinical Regeneration in [place], [place] [address] [place] [address] Jessica Rousseau M.B.B.S. [address] [place] [phone] 08/13/2025 11:00 AM CDT Nurse Only [facility] Transplantation and Clinical Regeneration in [place], [place] [address] [place] [phone] Jessica Rousseau M.B.B.S. [address] [place] [phone] 08/13/2025 11:30 AM CDT Office Visit [facility] Transplantation and Clinical Regeneration in [place], [place] [address] [place] [phone] Jessica Rousseau M.B.B.S. [address] [place] [phone] documented as of this encounter Visit Diagnoses Not on filedocumented in this encounter Additional Health Concerns Infection Onset Date Last Indicated Resolved Time Protective Environment 03/02/2023 03/02/2023 Assessment Noted Time PHQ-9 Depression Total Score: 2 12/10/19 25 2:46 PM CHILDHOOD DEVELOPMENT TEACHER documented as of this encounter Care Teams Video Production Intern Relationship Specialty Start Date End Date Renzo Andres M.D. [address] [place] [phone] PCP - General Family Medicine 04/25/23 documented as of this encounter
--- OUTSIDE RECORDS SUMMARY | 2025-05-25 14:00 | XMS_ITS | Encounter Summary ---
Author Organization [facility] Address [address] [place] [address] Care Team Providers Care Assemblyman Or Woman Name Role Phone Renzo Andres M.D. Primary Care Provider Reason for Referral * Outpatient (Routine) - Authorized Specialty Diagnoses / Procedures Referred By Estefania acosta Referred To Contact Palliative Medicine Felicia Watt APRN, C.N.P., M.S.N. [address] [place] [phone] Phone: tel: fax: [facility] Referral ID Status Reason Start Date Expiration Date V isits Requested Visits Authorized [id number] Authorized 05/25/2025 11/24/2026 1 1 Reason for Visit * Outpatient (Routine) - Closed Specialty Diagnoses / Procedures Referred By Contac t Referred To Contact Palliative Medicine Martine Pardo B.M.BKatalinaS., B.M., B.Ch. [address] [place] [phone] Phone: tel: fax: [facility] Referral ID Status Reason Start Date Expiration Date Visits Re quested Visits Authorized [id number] Closed 04/21/2025 10/21/2026 1 1 Encounter Details Date Type Department Care Team (Late st Contact Info) Description 05/25/2025 2:00 PM CDT Office Visit Department of Palliative Care in [place], [place] [address] [place] [address] Felicia Watt, KARON, C.N.P., M.S.N. [address] [place] [phone] Pain Leg Bilateral (Primary Dx); Nausea; Fatigue; Insomnia; Anxiety; Palliative Care Social History Tobacco Use Types Packs/Day Years Used Date Smoking Tobacco: Never Smokeless Tobacco: Never Alcohol Use Standard Drinks/Week Comments Yes 0 (1 standard drink = 0.6 oz pur e alcohol) social [facility] Utilities Answer Date Recorded In the past 12 months has e [employer], gas, oil, or water [employer] threatened to shut off services in your [...] your living situation today? I have a [facility] place to live 12/19/2024 Education Answer Date Recorded What is the highest level of school you have completed or the highest degree you have received? Some college, no degree 04/24/2019 Comments No Sex and Gender Information Value Date Recorded Sex Assigned at Female 12/26/2018 8:37 PM BUILDING SERVICES TECHNICIAN Legal Sex Female 2:43 PM BUILDING SERVICES TECHNICIAN Gender Identity Female 12/26/2018 8:37 PM BUILDING SERVICES TECHNICIAN Sexual Orientation Choose not to disclose [...] C.N.P., M.S.N. - 05/25/2025 2:00 PM CDT [facility] Outpatient Palliative Care Progress Note The [...] etiology- disease vs. Treatment related pain? 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 Opioid Toxicity Review: We have reviewed the risks of opioid therapy and completed an assessment oftoxicities. Opioid Aberrant Use Concerns: None Opioid Risk Score: Last Opioid Risk Tool charting Flowsheet Row Comprehensive Visit from 04/21/2025 in Department of Palliative Care in [place], [place] ORT Total Score (max 26) 2 [...] CDT Telemedicine Department of Palliative Care in [place], [place] [address] [place] [phone] Yary Landa D.O. [address] [place] [phone] 07/15/2025 9:00 AM CDT Telemedicine [facility] for Transplantation and Clinical Regeneration in [place], [place] [address] [place] [phone] Jessica Rousseau M.B.B.S. [address] [place] [phone] 08/11/2025 9:00 AM CDT Nurse Only Section of Infectious Diseases in [place], [place] [address] [place] [phone] Jessica Rousseau M.B.B.S. [address] [place] [phone] 08/11/2025 10:20 AM CDT Comprehensive Visit Division of Gastroenterology in [place], [place] [address] [place] [address] Jessica Rousseau M.B.B.S. [address] [place] [phone] 08/11/2025 1:00 PM CDT Clinical Support Department of Palliative Care in [place], [place] [address] [place] [phone] Uma Aly APRN, C.N.P., M.S.N. [address] [place] [phone] 08/13/2025 10:00 AM CDT Lab Department of Laboratory Medicine and Pathology, [facility], in [place], [place] [address] [place] [address] Jessica Rousseau M.B.B.S. [address] [place] [phone] 08/13/2025 10:30 AM CDT Office Visit [facility] Transplantation and Clinical Regeneration in [place], [place] [address] [place] [address] Jessica Rousseau M.B.B.S. [address] [place] [phone] 08/13/2025 11:00 AM CDT Nurse Only [facility] Transplantation and Clinical Regeneration in [place], [place] [address] [place] [phone] Jessica Rousseau M.B.B.S. [address] [place] [phone] 08/13/2025 11:30 AM CDT Office Visit [facility] Transplantation and Clinical Regeneration in [place], [place] [address] [place] [address] Jessica Rousseau M.B.B.S. [address] [place] [phone] Scheduled Referrals Name Type Priority Associated Diagnoses [...] Total Score: 2 12/10/19 25 2:46 PM BUILDING SERVICES TECHNICIAN documented as of this encounter Care Teams Assemblyman Or Woman Relationship Specialty Start Date End Date Renzo Andres M.D. [address] [place] [phone] PCP - General Family Medicine 04/25/23 documented as of this encounter
--- OUTSIDE RECORDS SUMMARY | 2025-05-28 15:39 | XMS_ITS | Encounter Summary ---
Author Organization [facility] Address [address] [place] [address] Care Team Providers Care Supervisor Microwave Name Role Phone Renzo Andres M.D. Primary Care Provider Encounter Details Date Type Department Care Team (Latest Contact Info) Description 05/28/2025 3:39 PM CDT - 05/29/2025 4:32 PM CDT Hospital Encounter [facility], Ninth Floor [address] [place] [address] Tanya Ivey M.D. [address] [place] [address] Discharge Disposition: Home or Self Care Social History Tobacco Use Types Packs/Day Years Used Date Smoking Tobacco: Never Smokeless Tobacco: Never Alcohol Use Standard Drinks/Week Comments Yes 0 (1 standard drink = 0.6 oz pur e alcohol) social [facility] Utilities Answer Date Recorded In the past 12 months has e electric, gas, oil, or water company threatened to shut off services in your home? No 05/28/2025 Humiliation, Afraid, Rape, and Kick questionnair e Answer Date Recorded Within the last year, have y ou been afraid of your partner or ex-partner? No 05/28/2025 Within the last year, have y ou been humiliated or emotionally abused in other ways by your partner or ex-partner? No Within the last year, have y ou been kicked, hit, slapped, or otherwise physically hurt by your partner or ex-partner? No 05/28/2025 Within the last year, have y ou been raped or forced to have any kind of sexual activity by your partner or ex-partner? No 05/28/2025 Hunger Vital Sign Answer Date Recorded Within the past 12 months, y ou worried that your food would run out before you got the money to buy more. Never true 05/28/20 25 Within the past 12 months, t he food you bought just didn't last and you didn't have money to get more. Never true 05/28/2025 PRAPARE - Transportation Answer Date Re corded In the past 12 months, has l ack of transportation kept you from medical appointments or from getting medications? No 05/19 In the past 12 months, has l ack of transportation kept you from meetings, work, or from getting things needed for daily living? No 05/28/2025 Depression Answer Date Recor ded PHQ-9 Total Score (max 27) 2 12/10 Housing Stability Answer Date Recorded What is your living situation today? [facility] 05/28/2025 Education Answer Date Recorded What is the highest level of school you have completed or the highest degree you have received? Some college, no degree 04/24/2019 Comments No Sex and Gender Information Value Date Recorded Sex Assigned at Female 12/26/2018 8:37 PM BIOSTATISTICS DIRECTOR Legal Sex Female 2:43 PM BIOSTATISTICS DIRECTOR Gender Identity Female 12/26/2018 8:37 PM BIOSTATISTICS DIRECTOR Sexual Orientation Choose not to disclose 2020 3:46 PM CDT documented as of this encounter Last Filed Vital Signs Vital Sign Reading Time Taken Comments Blood Pressure 136/98 05/29/2025 3:14 PM CDT Pulse 106 05/29/2025 3:14 PM CDT Temperature 36.8 C (98.2 F) 05/29/2025 3:14 PM CDT Respiratory Rate 17 05/29/2025 3:14 PM CDT Oxygen Saturation 99% 05/29/2025 3:14 PM CDT Inhaled Oxygen Concentration - - Weight 100 kg (221 lb 5.5 oz) 05/28/2025 3:50 PM CDT Height 172.7 cm (5' 8) 05/28/2025 3:50 PM CDT Body Mass Index 33.65 05/28/2025 3:50 PM CDT documented in this encounter Discharge Summaries * Lito Pollock P.A.-C. - 05/29/2025 11:52 AM CDT DISCHARGE SUMMARY BRIEF OVERVIEW Hospital: [facility] Discharge Provider: Tanya Ivey M.D. Primary Team: [facility] Primary Care Providers: Renzo Andres M.D. (General) [address] [place] [id number] Primary Care Provider Primary Care Provider Other Providers: None Admission Date: 05/28/2025 Discharge Date: 05/29/2025 PRINCIPAL DIAGNOSIS Nausea And Vomiting SECONDARY DIAGNOSES Principal Problem: Nausea And Vomiting Active Problems: Pain Neuropathic Depressive Disorder Transplant Stem Cell (HCC) Resolved Problems: * No resolved hospital problems. * DISCHARGE DISPOSITION Home or Self Care [1] ACTIVE ISSUES REQUIRING FOLLOW UP She will continue weekly labs at [facility]. Her Couch 9 appointment is scheduled June 03. OUTPATIENT FOLLOW UP Scheduled Appointments 06/01/2025 1:15 PM Jeaneth Núñez M.B.BKatalinaS., M.S.; RM 204 CMPLX [facility] 02 GI Gastroenterology and Hepatology 06/03/2025 10:00 AM TXP BMT ANUPAM 01 RO[facility] 09 Transplant Blood and Marrow 06/10/2025 1:20 PM IFD IMMUNIZATIONS 01 [facility] Infectious Diseases 06/15/2025 9:45 AM ROOM RO[facility] 07 SD 705 Procedural 06/24/2025 12:30 PM RST PAL PM MILAN INTAKE VISIT Admitting/Central Scheduling 06/25/2025 8:10 AM LAB BLOOD [facility] Laboratory Medicine 06/25/2025 9:00 AM PHR TXP PHARMACIST BRX [facility] Pharmacy 06/25/2025 9:30 AM TXP BMT NURSE 02 [facility] Transplant Blood and Marrow 06/25/2025 10:30 AM Jessica Rousseau M.B.B.S. Transplant Blood and Marrow 06/26/2025 10:00 AM Debbie Shay M.D. Palliative Medicine For appointment details refer to your Patient Appointment Guide. TEST RESULTS PENDING AT DISCHARGE Pending Labs None DETAILS OF HOSPITAL STAY REASON FOR ADMISSION Diarrhea Nausea Nausea And Vomiting HOSPITAL COURSE Radha Martinez is a 35 y.o. female with a past medical history significant for CML who received a MUD HCT on 12/10/24. She was admitted on May 27 for nausea. She was started on mg daily on May 28. The next morning she reported all her symptoms are gone. Her EGD with biopsy for CMV and GVHD is scheduled June 01. She requested to be dismissed. I have spent a total of greater than 30 minutes preparing (education, discharge planning) this patient for discharge today. CONSULTS ORDERED DURING THIS ADMISSION IP CONSULT TO DIETITIAN IP CONSULT TO GASTROENTEROLOGY IP CONSULT TO MASSAGE THERAPY CONDITION AT DISCHARGE improved Discharge instructions were provided to the patient and caregiver(s). Total time spent in discharge services today: 35 minutes. documented in this encounter Discharge Instructions * Discharge Instructions* Cecile Ortiz - 05/29/2025 7:12 AM CDT You were discharged from the [facility] Service. Please identify this service name if you call with questions after hospitalization. documented in this encounter Medications at Time of Discharge acyclovir (Zovirax) 400 mg tabletIndications:L eukemia Myeloid Chronic BCR/ABL Positive Remission (HCC),Transplant Bone [...] mouth daily. DULoxetine (Cymbalta) [address] capsuleIndications: 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) Take [...] Take 5 mg by mouth at bedtime. naloxone (Narcan) 4 mg/actuation nasal spray Administer 1 spray (4 mg total) into nostril(s) once for 1 dose. Use 1 spray in 1 nostril. Repeat with second device in other nostril after 2-3 minutes if no or minimal response. 2 each 05/25/2025 ondansetron ODT (Zofran-ODT) 4 mg disintegrating tablet Dissolve 1-2 tablets (4-8 mg total) in the mouth every 8 (eight) hours as needed for nausea or vomiting. 20 tablet 1 05/27/2025 penicillin V potassium (Veetids) 500 mg tabletIndications:L eukemia Myeloid Chronic BCR/ABL Positive Remission (HCC),Transplant Bone Marrow Allogeneic ([facility]) Take 1 tablet (500 mg total) by mouth 2 (two) times a day. 60 tablet 11 04/29/2025 sulfamethoxazole-tr imethoprim (Bactrim) 400-80 mg per tabletIndications:T ransplant Bone Marrow Allogeneic (HCC),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) Take 1 tablet by mouth daily. 60 tablet 1 05/13/2025 buprenorphine (Butrans) 5 mcg/hourIndications :Chronic Pain/Nonacute Pain Place 1 patch on the skin once a week Indication: Chronic Pain/Nonacute Pain. 4 patch 05/25/2025 HYDROmorphone (Dilaudid) 1 mg/mL liquidIndications:C hronic Pain/Nonacute Pain Take 0.5 mL (0.5 mg total) by mouth daily as needed for pain Indication: Chronic Pain/Nonacute Pain. 10 mL 05/13/2025 5 pantoprazole (Protonix) 40 mg EC tablet Take 1 tablet (40 mg total) by mouth 2 (two) times a day before morning and evening meals. 60 tablet 1 05/29/2025 4:28 PM CDT 05/29/2025 5 posaconazole (NoxafiL) 100 mg tabletIndications:L eukemia Myeloid Chronic BCR/ABL Positive Remission (HCC),Transplant Bone Marrow Allogeneic (HCC) Take 3 tablets (300 mg total) by mouth daily. 90 tablet 04/15/2025 5 predniSONE (Deltasone) 10 mg tablet Take 6 tablets (60 mg total) by mouth daily for 3 days, THEN 5 tablets (50 mg total) daily for 5 days. 43 tablet 05/29/2025 4:28 PM CDT 05/30/2025 5 prochlorperazine (Compazine) 10 mg tablet Take 1 tablet (10 mg total) by mouth every 6 (six) hours as needed for nausea. 30 tablet 1 05/20/2025 5 documented as of this encounter Progress Notes * Tanya Ivey M.D. - 05/29/2025 9:54 AM CDT I saw and evaluated the patient participating in the pagan portions of the in- patient visit service. I reviewed today's progress note and agree with the findings and plan. Ms. Radha Martinez is a 35 y.o. female with a past medical history significant for CML, status post a matched, unrelated donor allogeneic stem cell transplant. Admitted on 05/28 for new weakness, andnausea. Currently Day +170. 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 The rest as in the daily progress note * Lito Pollock P.A.-C. - 05/29/2025 6:34 AM CDT SUBJECTIVE TRANSPLANT PHYSICIAN Dr. Jessica Rousseau, pager [phone]. HISTORY OF PRESENT ILLNESS Radha Martinez is a 35 y.o. female with a past medical history significant for CML who received a MUD HCT on 12/10/24. She was admitted on May 27 for nausea. EVENTS OVER THE LAST 24 HOURS She was started on prednisone 60 mg daily on May 28 last night. This morning she reports all hersymptoms are gone. She denies nausea or vomiting. We are going to try to schedule her EGD with biopsy today. She would like to be dismissed regardless if she can get EGD today. If she can not get EGDtoday, we plan to request outpatient one. She has been afebrile. Denies cough, chest pain, shortness breath, abdominal pain, diarrhea, ankle swelling. Her neuropathy pain is along both legs. She rates the pain as 4/10 today, it is under control per her standard. REVIEW OF SYSTEMS REVIEW OF SYSTEMS a 10 point ROS was performed and negative with the exception of notation above. OBJECTIVE I/O No intake or output data in the 24 hours ending 05/29/25 1109 VITAL SIGNS Temperature: [36.7 ??C-36.9 ??C] 36.7 ??C Resp Rate: [15-18] 18 Blood Pressure: (128-150)/(86-111) 140/110 SpO2: [98 %-99 %] 99 % Pulse Rate: [78-114] 104 PHYSICAL EXAMINATION Physical Exam General: Patient is alert, oriented, and in no acute distress. Vitals as noted. Skin: No rash or bruising. Head: Atraumatic. Eyes: Anicteric, EOMI, PERRLA ENT: No mucositis or thrush. Heart: Regular rate and rhythm. Lungs: Clear bilaterally. Abdomen: Soft, nontender, nondistended with normal active bowel sounds. Extremities: No peripheral edema, cyanosis, or pallor. Fuad/Psych: CN 2-12 intact, normal affect KPS: 90% DIAGNOSTICS I have reviewed the recent relevant Diagnostics Results from last 7 days Lab Units 05/29/25 0518 05/28/25 1631 HEMOGLOBIN g/dL 12.4 12.6 HEMATOCRIT % 38.8 37.7 RBC AUTO x10(12)/L 4.69 4.60 MCV fL 82.7 82.0 RBC DISTRIBUTION WIDTH AUTO % 13.6 14.1 WBC x10(9)/L 5.1 4.1 NEUTROPHILS AUTO x10(9)/L 4.13 2.63 PLATELETS AUTO x10(9)/L 237 199 Results from last 7 days Lab Units 05/29/25 0518 05/28/25 1631 SODIUM mmol/L 137 139 CHLORIDE mmol/L 102 103 BUN mg/dL 10 11 CREATININE mg/dL 0.76 0.79 CALCIUM mg/dL 9.6 9.1 ALBUMIN g/dL -- 4.5 BILIRUBIN TOTAL mg/dL -- 0.3 ALK PHOS U/L -- 87 ALT U/L -- 41 AST U/L -- 38 GLUCOSE S mg/dL 167* 122 ASSESSMENT / PLAN Radha Martinez is a 35 y.o. female with a past medical history significant for CML who received a MUD HCT on 12/10/24. She was admitted on May 27 for nausea. 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 [id number]% donor DNA and approximately 0% recipient DNA. - Continue to check RT PCR BCR-ABL on peripheral blood every 6 weeks undetected on April 29 - Peripheral sort chimerism on 04/29: CD33 100% donor DNA and 0% recipient DNA - Last BM Bx from 02/18/25 was normal, no BCR-ABL1 detected. - Repeat BM biopsy scheduled June 15, 2025 # Diarrhea, resolved on 05/20 # Persistent Nausea and vomiting since 05/20, Query for GI GVHD # Chills and night sweats - C-diff negative from 05/17. PRN Imodium as needed. - Infectious work-up with peripheral blood cultures from 05/17 NGTD. Lactate 1.6, nonelevated. - 05/28 CT abdomin/pelvis: no abnormal findings. - Plan per Dr. Rousseau on 05/28: start prednisone 60 mg daily. Plan for taper of 10 mg daily every 5 days. - Optimize nausea management with PRN Compazine q6h and Prn ondansetron q8h. Started on IV Pepcid 20 mg BID 05/28/2025, plan to change to pantoprazole 40 mg Bid po. - EGD with biopsy requested for 06/01/25 (outpatient). # GVHD Prophylaxis - Received PTCy; MMF was stopped per protocol. -Tacrolimus discontinued 04/17/2025 ACUTE GVHD (CIBMTR CRITERIA) Current Severity 05/29/2025 Skin Stage Stage 0 (No GVHD rash) Liver Stage Stage 0 (Normal bilirubin) Gut Stage Stage 0 (Diarrhea <500 mL/day) Overall Grade Grade 0 (No acute GVHD) Change from previous evaluation: improved Maximum overall grade (and date): Late aGVHD: Other comments: Diagnostic tests: Treatment : Prednisone 60 mg daily Response to tt : CR # Antimicrobial Prophylaxis - Continues on Acyclovir, Penicillin VK, Bactrim, and Posaconazole. - Continues Bactrim and Posaconazole while on high dose Prednisone. - It should be noted she received two doses of Shingrix already. Continue Acyclovir while on steroids. - Both donor and recipient are CMV negative. She never received letermovir. Defer letermovir while on high dose steroids. # Insomnia - Continues on Melatonin 5 mg qHS. - Ativan on hold with starting buprenorphine patch on 05/28 # Peripheral neuropathy - Continues on buprenorphine patch 5 mg and qHS hydromorphone PRN. - Patient reported Gabapentin 600 mg TID stopped within last week. She reports she did not taper off. - Previous discussion that hydromorphone should not be used for chronic pain. Hydromorphone was refilled for short tem pain relief per palliative. Goal to wean off hydromorphone with starting buprenorphine patch. She reports currently taking 0.5 mg at bedtime as needed. - Appreciate Palliative recs from 05/25 with long-term pain management plan. # Vitamin [...] right eye. Wears glasses. - Followed by [facility] in [place], [place]. - Patient will notify team if any vision changes. # Blood Products # TACO - Requires infusion of platelets at a slower rate # Disposition - Mrs. Martinez will be discharged today. - EGD with biopsy on 06/01/25. - 9 video visit on 06/03/25. - Local labs at [facility] on 06/03/25. - She reports that she previously tolerated prednisone well without hyperglycemia. - Borderline hypertension may be related with prednisone. Hopefully will improve with tapering prednisone. documented in this encounter H&P Notes * Renita Potts APRN, C.N.P., D.N.P. - 05/28/2025 2:57 PM CDT SUBJECTIVE TRANSPLANT PHYSICIAN Dr. Jessica Rousseau, pager [phone] CHIEF COMPLAINT Ms. Radha Martinez is a 35 y.o. female with a past medical history significant for CML, status post a matched, unrelated donor allogeneic stem cell transplant. Admitted on 05/28 for new weakness, andnausea. Currently Day +169. HISTORY OF PRESENT ILLNESS Please refer to multiple prior notes in EMR for complete hematologic history: Ms. Martinez is a 35 y.o. 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 At the time of diagnosis, there was grade 3 reticulin fibrosis noted. The cytogenetics identified a [place] chromosome in 20 metaphases. The BCR-ABL1 P [...] t(9;22) metaphases. NGS is positive for ASXL1 p.[id number] (20%) and p.[id number]* (3%). 06/17/2024: feeling quite symptomatic since the [...] Camargo CVC placed on 12/03/24 by [facility]. Social Work Seen and cleared [...] INTERVAL HISTORY 05/20/25 Day+161 Radha Martinez presents for hospital admission. She reports ongoing nausea over the lasttwo weeks. She reports decrease appetite and 5 lb weight loss. She reports vomiting intermittently and dry heaves. Not associated with meals or with taking pills. She denies vomiting yet today and taking compazine once this morning. She reports just picking up her script for Zofran due to prior authorization therefore has not utilized. She endorses diarrhea has improved, soft formed most recentlytoday. She denies abdominal pain or cramping. Given concern with recent GI changes, and now ongoing nausea will proceed with GI GVHD work-up given her risk per Dr. Rousseau. Patient reports ongoing lower extremity pain/achiness and she recently May 25 by palliative care.She reports starting the buprenorphine patch today, continue PO Cymbalta and bedtime as needed PO liquid hydromorphone. She does reports stopping gabapentin within the last week without a taper. Denies headache, fever/chills, pre-syncope/dizziness/lightheadedness, rash, oral/throat pain, cough, shortness of breath, chest pain, palpitations, or bleeding. REVIEW OF SYSTEMS A 10-point review of systems was conducted. Positive findings are noted in the interval history above. I reviewed the medication list, allergies and past medical/surgical history. Current Medications[1] Current Outpatient Medications on File Prior to Encounter Medication Sig Last Dose/Taking acyclovir (Zovirax) 400 mg tablet Take 1 tablet (400 mg total) by mouth 2 (two) times a day. 05/28/2025 ARIPiprazole (Abilify) 10 mg tablet Take 1 tablet (10 mg total) by mouth daily. Dose change 12/02/2024 05/27/2025 buprenorphine (Butrans) 5 mcg/hour Place 1 patch on the skin once a week Indication: Chronic Pain/Nonacute Pain. 05/28/2025 cholecalciferol (Vitamin D3) 50 mcg (2,000 Unit) tablet Take 50 mcg by mouth daily. 05/28/2025 Morning DULoxetine (Cymbalta) [address] capsule Take 2 capsules (120 mg total) by mouth daily. 05/28/2025 Noon gabapentin (Neurontin) 300 mg capsule Take 1-2 capsules (300-600 mg total) by mouth 2 (two) times aday. 04/29/25: Increase dose to 300 mg in AM and 600 mg at bedtime. (Patient taking differently: Take 600 mg by mouth 3 (three) times a day. 04/29/25: Increase dose to 300 mg in AM and 600 mg at bedtime.) Past Week HYDROmorphone (Dilaudid) 1 mg/mL liquid Take 0.5 mL (0.5 mg total) by mouth daily as needed for pain Indication: Chronic Pain/Nonacute Pain. Past Week Bedtime LORazepam (Ativan) 0.5 mg tablet Take 1 tablet (0.5 mg total) by mouth at bedtime as needed for anxiety. 05/27/2025 Bedtime melatonin 5 mg tablet Take 5 mg by mouth at bedtime. 05/27/2025 Bedtime penicillin V potassium (Veetids) 500 mg tablet Take 1 tablet (500 mg total) by mouth 2 (two) times a day. 05/28/2025 Morning posaconazole (NoxafiL) [address] tablet Take 3 tablets (300 mg total) by mouth daily. 05/28/2025 Noon prochlorperazine (Compazine) 10 mg tablet Take 1 tablet (10 mg total) by mouth every 6 (six) hours as needed for nausea. 05/28/2025 Morning sulfamethoxazole-trimethoprim (Bactrim) 400-80 mg per tablet Take 1 tablet by mouth daily. 05/28/2025 Morning loperamide (Imodium A-D) 2 mg capsule Take 1 capsule (2 mg total) by mouth every 2 (two) hours as needed for diarrhea. Take with occurrence of diarrhea. May take up to 16 mg, or 8 doses daily. More than a month naloxone (Narcan) 4 mg/actuation nasal spray Administer 1 spray (4 mg total) into nostril(s) once for 1 dose. Use 1 spray in 1 nostril. Repeat with second device in other nostril after 2-3 minutes ifno or minimal response. ondansetron ODT (Zofran-ODT) 4 mg disintegrating tablet Dissolve 1-2 tablets (4- 8 mg total) in the mouth every 8 (eight) hours as needed for nausea or vomiting. Unknown OBJECTIVE VITAL SIGNS Vitals: 05/28/25 1549 05/28/25 1550 05/28/25 1551 BP: (!) 150/111 (!) 128/103 (!) 140/107 BP Location: Left arm;Upper Left arm;Upper Left arm;Upper Patient Position: Sitting Standing Standing Pulse: 89 99 (!) 114 Resp: 15 Temp: 36.7 ??C TempSrc: Oral Admission Weight: 100 kg Weight: 100 kg (05/28/2025 3:50 PM) Height: 172.7 cm (05/28/2025 3:50 PM) Last weight recorded 05/20/2025: 103 kg Physical Exam General: Patient is alert, oriented in no acute distress. Skin: No rash present. Eyes: Anicteric. ENT: Oral mucosa and oropharynx examined and without erythema, ulceration, or lesions. Vessels: Radial and Pedal pulses 2+. Heart: RRR, no murmur, normal S1, S2. Lungs: Normal respiratory effort, lungs clear to auscultation bilaterally. Abdomen: Bowel sounds normoactive. Abdomen is soft and without masses or tenderness. Extremities: No edema, cyanosis, or clubbing Karnofsky Performance Score: 80% DIAGNOSTIC FINDINGS I have reviewed imaging, and other diagnostic studies. Clinically significant abnormal findings areas follows: No results found for this or any previous visit (from the past 24 hours). ASSESSMENT / PLAN Plan for 05/28/2025 - GI consulted - Abdominal CT Scan - Start PO Prednisone 60 mg for 5 days, taper plan to follow as listed. 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 [id number]% donor DNA and approximately 0% recipient DNA. - Continue to check RT PCR BCR-ABL on peripheral blood every 6 weeks undetected on April 29 - Peripheral sort chimerism on 04/29: CD33 100% donor DNA and 0% recipient DNA - Last BM Bx from 02/18/25 was normal, no BCR-ABL1 detected. - Repeat BM biopsy scheduled June 15, 2025 # Diarrhea, resolved on 05/20 # Persistent Nausea and vomiting since 05/20, Query for GI GVHD # Chills and night sweats - C-diff negative from 05/17. PRN Imodium as needed. - Infectious work-up with peripheral blood cultures from 05/17 NGTD. Lactate 1.6, nonelevated. - 05/28 CT abdomin/pelvis pending - GI consulted on 05/28 - Plan per Dr. Rousseau on 05/28: start prednisone 60 mg daily. Plan for taper of 10 mg daily every 5 days. Thank you - Optimize nausea management with PRN Compazine q6h and ondansetron q8h. Started on IV Pepcid 20 mgBID 05/28/2025. # GVHD Prophylaxis - Received PTCy; MMF was stopped per protocol. -Tacrolimus discontinued 04/17/2025 ACUTE GVHD (CIBMTR CRITERIA) Current Severity 05/28/2025 Skin Stage Stage 0 (No GVHD rash) Liver Stage Stage 0 (Normal bilirubin) Gut Stage Stage 1 (Diarrhea 500-999 mL/day or persistent nausea) Overall Grade Grade 1 (Skin 1-2, Liver 1, or Gut 1) Change from previous evaluation: Worse Maximum overall grade (and date): Late aGVHD: Other comments: Diagnostic tests: Treatment :Tacrolimus discontinued 04/17/2025 Response to tt : # Antimicrobial Prophylaxis - Continues on Acyclovir, Penicillin VK, Bactrim, and Posaconazole. - Anticipate discontinuing Bactrim and Posaconazole approx 3 months after discontinuation of tacrolimus (approx Jul 16). At that time may also consider stopping Acyclovir as she received two doses of Shingrix already. # Insomnia - Continues on Melatonin 5 mg qHS. - Ativan on hold with starting buprenorphine patch on 05/28 # Peripheral neuropathy - Continues on buprenorphine patch 5 mg and qHS hydromorphone PRN. - Patient reported Gabapentin 600 mg TID stopped within last week. She reports she did not taper off. - Previous discussion that hydromorphone should not be used for chronic pain. Hydromorphone was refilled for short tem pain relief per palliative. Goal to wean off hydromorphone with starting buprenorphine patch. She reports currently taking 0.5 mg at bedtime as needed. - Appreciate Palliative recs from 05/25 with long-term pain management plan. # Vitamin [...] right eye. Wears glasses. - Followed by [facility] in [place], [place]. - Patient will notify team if any vision changes. # Blood Products # TACO - Requires infusion of platelets at a slower rate # Disposition - Mrs. Martinez will remain inpatient for above medical complication as listed above. Renita Potts APRN, C.N.P., D.N.P. [1] Current Medications Medication Dose Frequency Last Rate Last Admin acyclovir tablet 400 mg (Zovirax) 400 mg BID alteplase 1 mg/mL injection 2 mg (Cathflo Activase) 2 mg PRN ARIPiprazole tablet 10 mg (Abilify) 10 mg Every afternoon [START ON 05/29/2025] buprenorphine 5 mcg/hour 1 patch (Butrans) 1 patch Weekly calcium carbonate chewable tablet 200 mg of calcium (Tums) 200 mg of calcium Daily PRN [START ON 05/29/2025] cholecalciferol (vitamin D3) tablet 50 mcg 50 mcg Daily [START ON 05/29/2025] DULoxetine DR capsule 120 mg (Cymbalta) 120 mg Daily HYDROmorphone liquid 0.5 mg (Dilaudid) 0.5 mg At bedtime PRN melatonin tablet 5 mg 5 mg Daily at bedtime ondansetron ODT disintegrating tablet 8 mg (Zofran-ODT) 8 mg Q8H PRN Or ondansetron (PF) injection 8 mg (Zofran) 8 mg Q8H PRN penicillin V potassium tablet 500 mg (Veetids) 500 mg BID [START ON 05/29/2025] posaconazole DR tablet 300 mg (NoxafiL) 300 mg Daily prochlorperazine tablet 10 mg (Compazine) 10 mg Q6H PRN Or prochlorperazine injection 10 mg (Compazine) 10 mg Q6H PRN 10 mg at 05/28/25 1635 sennosides-docusate sodium 8.6-50 mg per tablet 1 tablet (Senokot-S) 1 tablet BID PRN [START ON 05/29/2025] sulfamethoxazole-trimethoprim 400-80 mg per tablet 1 tablet (Bactrim) 1 tabletDaily documented in this encounter Consult Notes * Jennyfer Guidry M.S. - 05/29/2025 11:02 AM CDTAssociated Order(s): IP CONSULT TO DIETITIAN Clinical Nutrition: Initial Assessment Clinical Nutrition was requested to evaluate patient for positive nursing baseline nutrition screenwith a MST score of 2 or greater Completed visit with patient and multidisciplinary team today as part of face to face care. SUBJECTIVE Ms. Martinez is a 35 y.o. female admitted for Nausea And Vomiting. Past medical history significant for CML, status post a matched, unrelated donor allogeneic stem cell transplant. Admitted on 05/28 for new weakness, and nausea. Day +170 (05/29). 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 She notes to feel better thismorning, no nausea. She stated that she has an appetite this morning. She had yoruba toast with syrup, fruit, and an latvian muffin with jelly prior to being NPO. She has no changes with her bowel movements. Provided shake/smoothie/supplement menus to patient to utilize. She enjoys the clear protein supplements. Nutrition Prior to Admission: She reports ongoing nausea over the last two weeks. She reports decrease appetite and ~5 lb weight loss. She has been having smaller more frequent meals such as chicken tenders, soup, PB toast, or sandwiches. She reports vomiting intermittently and dry heaves, but hasn't since being admitted. Prior to this was eating well. Per RDN note 12/17, patient was eating and drinking well leading up to transplant (Allo PBSC 12/10/24). Pre-transplant weight of 98.9 kg recorded on 12/08/24. Food Allergies/Intolerances: Allergies[3] OBJECTIVE Current nutrition orders: Dietary Orders (From admission, onward) Start Ordered 05/29/25 0807 No oral or enteral nutrition (NPO Orders) Diet effective now 05/29/25 0807 Pertinent Labs: Last 3 results Lab Units 05/29/25 0518 05/28/25 1631 SODIUM mmol/L 137 139 POTASSIUM mmol/L 4.9 4.3 CHLORIDE mmol/L 102 103 BUN mg/dL 10 11 CREATININE mg/dL 0.76 0.79 PHOSPHORUS INORGANIC mg/dL -- 4.4 CALCIUM mg/dL 9.6 9.1 MAGNESIUM mg/dL -- 2.2 Lab Results Component Value Date/Time 25-Hydroxy D Total 38 03/24/2025 09:29 AM Ferritin, S 132 03/24/2025 09:29 AM Chewing and Swallowing: no issues noted. GI Function:Last BM Date: 05/28/25, , Passing Flatus: Yes Tube Information: n/a Edema: , , , , , , Integumentary/Wounds: Lines/Drains/Airways Wound Duration Wound 02/18/25 Incision Iliac crest Right;Posterior bmbx site 99 days Medications: Current Medications[4] Anthropometrics: Height: 172.7 cm Admission Weight: 100 kg (05/28/2025) Current Weight: 100 kg BMI (Calculated): 33.7 kg/m?? Weight change since admission: 0 kg Net IO Since Admission: No IO data has been entered for this period [05/29/25 0828] Weight history: Weight: decrease of 2.65 kg (2.6%) over 1 month Start: 04/29/2025 103 kg End: 05/28/2025 100 kg Wt Readings from Last 12 Encounters: 05/28/25 100 kg 05/20/25 103 kg 05/17/25 103 kg 04/29/25 103 kg 04/08/25 101 kg 03/24/25 98.5 kg 03/10/25 98.4 kg 03/03/25 98.5 kg 02/24/25 96.6 kg 02/18/25 95.1 kg 02/10/25 95.4 kg 02/06/25 95.1 kg ASSESSMENT / PLAN Nutrition Diagnosis: Inadequate oral intake related to acute illness as evidenced by n/v, weight loss. Initiated Malnutrition Assessment: 05/29 ASPEN Criteria of Malnutrition: Nutritional Status: Malnutrition criteria not met Malnutrition in the Context of: Acute Illness or Injury Based on: Energy Intake: Less than 75% of estimated energy requirement for greater than or equal to 7 days Interpretation of Weight Loss: No Change Body Fat: Normal Muscle Mass: Normal Fluid Accumulation: Absent Reduced Commercial Coordinator Strength: Not applicable Estimated Needs: Total Calorie Needs: 1173-3274 calories/day Method to Estimate Energy Needs: [place]-St Jeor (Basal to Basal + 10%) Weight Used for Equation Calculations: 100 kg Total Protein Needs: 77 - 96 grams/day (Method to Estimate Protein Needs (g/kg): 1.2 - 1.5 gm/kg) Weight Used to Calculate Protein Needs (Kg): 63.9 kg BMI >30. Nutrition Intervention: Interventions: Medical food supplement, Increase nutrient intake with small, frequent meals and/or snacks, Provide counseling strategies to apply nutrition knowledge, Menu selection assistance Monitoring/Evaluation: Nutrition parameter to monitor: Diet Progression/NPO Status, Meals/Supplement Intake, Weight Status, Pertinent Labs, Chewing/Swallowing, Nausea/Vomiting, and Constipation/Diarrhea Desired Outcome: Consume adequate nutrition orally Adequate oral intake to support weight maintenance Adequate stooling Advance diet per service when medically able Maintain weight Recommendations: Continue to encourage oral intake with smaller more frequent meals when diet is advanced. Incorporate oral nutrition supplements throughout the day to meet protein goals. Clinical Nutrition will continue to follow. For questions about patient's nutritional care please contact pager [phone] on weekdays 07:30-16:00 or [phone] on weekends/holidays ([facility]) [phone]. [1] Past Medical History: Diagnosis Date Amblyopia Bilateral Anemia Anxiety Generalized Disorder Depressive Disorder Fibromyalgia 2020 Headache Unspecified Irritable Bowel Syndrome, Unspecified 2015 Leukemia Migraine Headache Other Injury Of Unspecified Body Region Strabismus [2] Past Surgical History: Procedure Laterality Date EYE SURGERY Right 1989 INSERTION CENTRAL VENOUS LINE N/A 12/03/2024 Procedure: INSERTION CENTRAL VENOUS LINE, [place]; Surgeon: Brianna Hernandez M.D., Ph.D.; Location: [facility] [3] Allergies Allergen Reactions Oxycodone GI intolerance Severe nausea Bupropion Edema (Reselect Reaction) Grapefruit Other (see comments) Drug-drug interaction with Bosulif (bosutinib); This had also been noted w/ prior therapy which patient is no longer taking (Tasigna (nilotinib)). [4] Current Facility-Administered Medications: acyclovir tablet 400 mg (Zovirax), 400 mg, oral, BID, Renita Potts APRN, C.N.P., D.N.P., 400 mg at 05/29/25 0813 alteplase 1 mg/mL injection 2 mg (Cathflo Activase), 2 mg, intra-catheter, PRN, Renita Potts APRN, C.N.P., D.N.P. ARIPiprazole tablet 10 mg (Abilify), 10 mg, oral, Every afternoon, Renita Potts APRN, C.N.P., D.N.P., 10 mg at 05/28/25 1752 [START ON 06/04/2025] buprenorphine 5 mcg/hour 1 patch (Butrans), 1 patch, transdermal, Weekly, Lito Pollock P.A.-C. calcium carbonate chewable tablet 200 mg of calcium (Tums), 200 mg of calcium, oral, Daily PRN, Renita Potts APRN, C.N.P., D.N.P. cholecalciferol (vitamin D3) tablet 50 mcg, 50 mcg, oral, Daily, Renita Potts APRN, C.N.P., D.N.P., 50 mcg at 05/29/[address] capsule 120 mg (Cymbalta), 120 mg, oral, Daily, Renita Potts APRN, C.N.P., D.N.P. famotidine injection 20 mg (Pepcid), 20 mg, intravenous, BID, Renita Potts APRN, C.N.P., D.N.P., 20 mg at 05/29/25812 HYDROmorphone liquid 0.5 mg (Dilaudid), 0.5 mg, oral, At bedtime PRN, Renita Potts APRN, C.N.P., D.N.P. melatonin tablet 5 mg, 5 mg, oral, Daily at bedtime, Renita Potts APRN, C.N.P., D.N.P., 5 mg at 05/28/252050 naloxone injection 0.4 mg (Narcan), 0.4 mg, intravenous, PRN, Renita Potts APRN, C.N.P., D.N.P. ondansetron ODT disintegrating tablet 8 mg (Zofran-ODT), 8 mg, oral, Q8H PRN OR ondansetron (PF) injection 8 mg (Zofran), 8 mg, intravenous, Q8H PRN, Renita Potts APRN, C.N.P., D.N.P. penicillin V potassium tablet 500 mg (Veetids), 500 mg, oral, BID, Renita Potts APRN, C.N.P., D.N.P., 500 mg at 05/29/[address] tablet 300 mg (NoxafiL), 300 mg, oral, Daily, Renita Potts APRN, C.N.P., D.N.P., 300 mg at 05/29/25812 predniSONE tablet 60 mg (Deltasone), 60 mg, oral, Daily, 60 mg at 05/29/25812 FOLLOWED BY [START ON 06/02/2025] predniSONE tablet 50 mg (Deltasone), 50 mg, oral, Daily, Renita Potts APRN, C.N.P., D.N.P. prochlorperazine tablet 10 mg (Compazine), 10 mg, oral, Q6H PRN OR prochlorperazine injection 10 mg (Compazine), 10 mg, intravenous, Q6H PRN, Renita Potts APRN, C.N.P., D.N.P., 10 mg at 05/28/25 1635 sennosides-docusate sodium 8.6-50 mg per tablet 1 tablet (Senokot-S), 1 tablet, oral, BID PRN, Renita Potts APRN, C.N.P., D.N.P. sulfamethoxazole-trimethoprim 400-80 mg per tablet 1 tablet (Bactrim), 1 tablet, oral, Daily, Renita Potts APRN, C.N.P., D.N.P., 1 tablet at 05/29/25812 documented in this encounter Nursing Notes * Jarod Reinoso M.SHelio., R.N. - 05/29/2025 3:39 PM CDT Problem: PAIN - ADULT Goal: PT VERBALIZES/DEMONSTRATES ADEQUATE COMFORT LEVEL OR BASELINE Outcome: Adequate for Discharge Problem: KNOWLEDGE DEFICIT Goal: Patient/family/caregiver demonstrates understanding of disease process, treatment plan, medications, and discharge instructions Outcome: Adequate for Discharge Problem: INFECTION - ADULT Goal: Absence of infection during hospitalization Outcome: Adequate for Discharge Problem: SKIN/TISSUE INTEGRITY Goal: Skin/Tissue integrity maintained or improved Outcome: Adequate for Discharge Goal: Oral and Nasal mucous membranes remain intact Outcome: Adequate for Discharge Problem: SAFETY ADULT Goal: Maintain a safe environment Outcome: Adequate for Discharge Problem: DISCHARGE PLANNING Goal: Patient discharge needs identified Outcome: Adequate for Discharge Problem: Risk for Compromised Skin Integrity-Adrian Activity Score 3 Goal: Achieve optimal activity to maintain or improve skin integrity. Outcome: Adequate for Discharge Problem: SAFETY ADULT - RISK FOR FALL AND OR FALL INJURY Goal: Patient remains free from fall/fall injury Outcome: Adequate for Discharge Problem: Risk for Compromised Skin Integrity-Other Sales And Marketing Analyst(s) Goal: Risk for Compromised Skin Integrity-Other Sales And Marketing Analyst(s) Outcome: Adequate for Discharge Shift Goals: Clinical Goals for the Shift: Pt will d/c today Identify possible barriers to meeting goals/advancing plan of care: disease process/care coordination End of Shift Summary: VSS. Pt was given d/c education and was receptive to education. RN went through medications, reasons to go to emergent care, upcoming appointments pt had to report to, and any follow up questions. Pt was able to teach back to RN. Pt d/c with family member. * Nayeli Mcgovern RHelio. - 05/28/2025 10:27 PM CDT Patient refused bed alarm. Educated patient/parent/guardian on how bed alarm, is performed, its benefits, and the harm that may occur without it. Patient continued to refuse. * Juan Mahmood R.N. - 05/28/2025 6:05 PM CDT Patient refused continuous bed/chair alarm. Educated on how the alarm is utilized, the benefits of the alarm, and the risks associated with refusal. Patient verbalized understanding and continued to refuse. documented in this encounter Miscellaneous Notes * Hospital Course - Lito Pollock P.A.-C. - 05/29/2025 11:48 AM CDT Radha Martinez is a 35 y.o. female with a past medical history significant for CML who received a MUD HCT on 12/10/24. She was admitted on May 27 for nausea. She was started on [id number] mg daily on May 28. The next morning she reported all her symptoms are gone. Her EGD with biopsy for CMV and GVHD is scheduled June 01. She requested to be dismissed. I have spent a total of greater than 30 minutes preparing (education, discharge planning) this patient for discharge today. documented in this encounter Plan of Treatment Upcoming Encounters Date Type Department Care Team (Latest Contact Info) Description 07/03/2025 8:00 AM CDT Telemedicine Department of Palliative Care in [place], [place] [address] [place] [phone] Yary Landa D.O. [address] [place] [phone] 07/15/2025 9:00 AM CDT Telemedicine [facility] Aravind [facility] for Transplantation and Clinical Regeneration in [place], [place] [address] [place] [phone] Jessica Rousseau M.B.B.S. [address] [place] [phone] 08/11/2025 9:00 AM CDT Nurse Only Section of Infectious Diseases in [place], [place] [address] [place] [phone] Jessica Rousseau M.B.B.S. [address] [place] [phone] 08/11/2025 10:20 AM CDT Comprehensive Visit Division of Gastroenterology in [place], [place] [address] [place] [phone] Jessica Rousseau M.B.B.S. [address] [place] [phone] 08/11/2025 1:00 PM CDT Clinical Support Department of Palliative Care in [place], [place] [address] [place] [phone] Uma Aly APRN, C.NKatalinaP., M.S.N. [address] [place] [phone] 08/13/2025 10:00 AM CDT Lab Department of Laboratory Medicine and Pathology, [facility], in [place], [place] [address] [place] [address] Jessica Rousseau M.B.B.S. [address] [place] [phone] 08/13/2025 10:30 AM CDT [facility] in [place], [place] [address] [place] [phone] Jessica Rousseau M.B.B.S. [address] [place] [phone] 08/13/2025 11:00 AM CDT Nurse Only [facility] in [place], [place] [address] [place] [address] Jessica Rousseau M.B.B.S. [address] [place] [phone] 08/13/2025 11:30 AM CDT Office Visit Pedro Nazario [facility] for Trans[facility] and Clinical Regeneration in [place], [place] [address] [place] [phone] Jessica Rousseau M.B.B.S. [address] [place] [phone] documented as of this encounter Procedures Procedure Name Priority Date/Time Associated Diagnosis Comments CBC WITH DIFFERENTIAL, B Routine 05/29/2025 5:18 AM CDT BASIC METABOLIC PANEL, S/P Routine 05/29/2025 5:18 AM CDT LACTATE, B/P STAT 05/28/2025 8:[address] ABDOMEN PELVIS WITH IV CONTRAST RAD - Routine (most inpatients and all outpatients) 05/28/2025 5:44 PM CDT CBC NO CALL BACK, REFLEX T/S Timed 05/28/2025 4:31 PM CDT PHOSPHORUS (INORGANIC), S Timed 05/28/2025 4:31 PM CDT MAGNESIUM, S Timed 05/28/2025 4:31 PM CDT COMPREHENSIVE METABOLIC PANEL, S/P Timed 05/28/2025 4:31 PM CDT documented in this encounter Results * (ABNORMAL) Basic Metabolic Panel (05/29/2025 5:18 AM CDT) Potassium, S 4.9 3.6 - 5.2 mmol/L 05/29/2025 6:40 AM CDT DTL Sodium, S 137 135 - 145 mmol/L 05/29/2025 6:40 AM CDT DTL Chloride, S 102 98 - 107 mmol/L 05/29/2025 6:40 AM CDT DTL Bicarbonate, S 22 22 - 29 mmol/L 05/29/2025 6:40 AM CDT DTL Anion Gap 13 7 - 15 05/29/2025 6:40 AM CDT DTL BUN (Blood Urea Nitrogen), S 10 6 - 21 mg/dL 05/29/2025 6:40 AM CDT DTL Creatinine 0.76 0.59 - 1.04 mg/dL 05/29/2025 6:40 AM CDT DTL Estimated GFR (eGFR) >90 >=60 mL/min/BSA 05/29/2025 6:40 AM CDT DTL Comment: Estimated GFR calculated using the 2020 CKD_EPI creatinine equation. Calcium, Total, S 9.6 8.6 - 10.0 mg/dL 05/29/2025 6:40 AM CDT DTL Glucose, S 167(H) 70 - 140 mg/dL 05/29/2025 6:40 AM CDT DTL Blood (Blood, Venous) 05/29/2025 5:18 AM CDT 05/29/2025 6:01 AM CDT us Crista Jay M.D., M.P.H. LAB BLOOD ADD[place] [address], [facility] [address] [place] [address] * (ABNORMAL) CBC with Differential, Blood (05/29/2025 5:18 AM CDT) Hemoglobin 12.4 11.6 - 15.0 g/dL 05/29/2025 6:17 AM CDT DTL Hematocrit 38.8 35.5 - 44.9 % 05/29/2025 6:17 AM CDT DTL Erythrocytes 4.69 3.92 - 5.13 x10(12)/L 05/29/2025 6:17 AM CDT DTL MCV 82.7 78.2 - 97.9 fL 05/29/2025 6:17 AM CDT DTL RBC Distrib Width 13.6 12.2 - 16.1 % 05/29/2025 6:17 AM CDT DTL Platelet Count 237 157 - 371 x10(9)/L 05/29/2025 6:17 AM CDT DTL Leukocytes 5.1 3.4 - 9.6 x10(9)/L 05/29/2025 6:17 AM CDT DTL Neutrophils 4.13 1.56 - 6.45 x10(9)/L 05/29/2025 6:17 AM CDT DHPM Lymphocytes 0.71(L) 0.95 - 3.07 x10(9)/L 05/29/2025 6:17 AM CDT DTL Monocytes 0.21(L) 0.26 - 0.81 x10(9)/L 05/29/2025 6:17 AM CDT DTL Eosinophils <0.03 0.03 - 0.48 x10(9)/L 05/29/2025 6:17 AM CDT DTL Basophils <0.03 0.01 - 0.08 x10(9)/L 05/29/2025 6:17 AM CDT DTL Blood (Blood, Venous) 05/29/2025 5:18 AM CDT 05/29/2025 5:50 AM CDT Crista Jay M.D., M.P.H. LAB BLOOD ADD-ON F inal Result [facility] [address] [place] [address], [facility] DTL [facility] [address] [place] [address] [facility] [address] [place] [address] * Lactate (05/28/2025 8:59 PM CDT) [facility] Lactate, P 1.8 0.5 - 2.2 mmol/L 05/28/2025 9:54 PM CDT DTL Blood (Blood, Venous) 05/28/2025 8:59 PM CDT 05/28/2025 9:21 PM CDT us Crista Jay M.D., M.P.H. LAB BLOOD NON ADD- ON Final Result [facility] [address] [place] [address], [place] DTL [facility] [address] [place] [address] * CT Abdomen Pelvis with IV Contrast (05/28/2025 5:44 PM CDT) Anatomical Region Laterality Modality Abdomen, Pelvis, Abdominal R ST LOS, Abdominal ARZ LOS, Abdominal FLA LOS N/A Computed Tomograp hy, Computed Tomography 05/28/2025 5:47 PM CDT Impressions 05/28/2025 6:49 PM CDT No acute findings in the abdomen or pelvis. No significant change since 11/03/2024. Narrative 05/28/2025 6:49 PM CDT EXAM: CT ABDOMEN PELVIS WITH IV CONTRAST COMPARISON: CT abdomen and pelvis with IV contrast from 11/03/2024. FINDINGS: No significant change since 11/03/2024. The liver, gallbladder, pancreas, and adrenal glands are negative. Unchanged borderline enlarged spleen, measuring 12.4 cm craniocaudally. Slight increased echogenicity in the central liver likely related to an area of focal fatty sparing (series 3, image 40). Symmetric nephrograms. No hydronephrosis. Negative urinary bladder. Normal caliber of bowel. No bowel obstruction. No free air or free fluid. No enlarged lymph nodes in the abdomen or pelvis. No aggressive osseous lesions. Bilateral lung bases are clear. Procedure Note Melani Pinto M.D. - 05/28/2025 EXAM: CT ABDOMEN PELVIS WITH IV CONTRAST COMPARISON: CT abdomen and pelvis with IV contrast from 11/03/2024. FINDINGS: No significant change since 11/03/2024. The liver, gallbladder, pancreas, and adrenal glands are negative.Unchanged borderline enlarged spleen, measuring 12.4 cm craniocaudally.Slight increased echogenicity in the central liver likely related to anarea of focal fatty sparing (series 3, image 40). Symmetric nephrograms. No hydronephrosis. Negative urinary bladder. Normalcaliber of bowel. No bowel obstruction. No free air or free fluid. Noenlarged lymph nodes in the abdomen or pelvis. No aggressive osseous lesions. Bilateral lung bases are clear. IMPRESSION: No acute findings in the abdomen or pelvis. No significant change since11/03/2024. Renita Potts APRN, C.N.P., D.N.P. IM CT PROC EDURES Final Result * Phosphorus Inorganic (05/28/2025 4:31 PM CDT) Phosphorus (Inorganic), S 4.4 2.5 - 4.5 mg/dL 05/28/2025 7:46 PM CDT DTL Blood (Blood, Venous) 05/28/2025 4:31 PM CDT 05/28/2025 4:43 PM CDT Renita Potts APRN, C.N.P., D.N.P. LAB BLOOD A DD-ON Final Result Performing Organization Address City/[facility]/ZIP Co de Phone Number [facility] [address] [place] [address] * Magnesium (05/28/2025 4:31 PM CDT) Magnesium, S 2.2 1.7 - 2.3 mg/dL 05/28/2025 7:46 PM CDT DTL Blood (Blood, Venous) 05/28/2025 4:31 PM CDT 05/28/2025 4:43 PM CDT Renita Potts APRN, C.N.P., D.N.P. LAB BLOOD A DD-ON Final Result [facility] [address] DTL [place] [address] [place] [address] * (ABNORMAL) Comprehensive Metabolic Panel (05/28/2025 4:31 PM CDT) [facility] Potassium, S 4.3 3.6 - 5.2 mmol/L 05/28/2025 7:46 PM CDT DTL Sodium, S 139 135 - 145 mmol/L 05/28/2025 7:46 PM CDT DTL Chloride, S 103 98 - 107 mmol/L 05/28/2025 7:46 PM CDT DTL Bicarbonate, S 19(L) 22 - 29 mmol/L 05/28/2025 7:46 PM CDT DTL Anion Gap 17(H) 7 - 15 05/28/2025 7:46 PM CDT DTL BUN (Blood Urea Nitrogen), S 11 6 - 21 mg/dL 05/28/2025 7:46 PM CDT DTL Creatinine 0.79 0.59 - 1.04 mg/dL 05/28/2025 7:46 PM CDT DTL Estimated GFR (eGFR) >90 >=60 mL/min/BS A 05/28/2025 7:46 PM CDT DTL Comment: Estimated GFR calculated using the 2020 CKD_EPI creatinine equation. Calcium, Total, S 9.1 8.6 - 10.0 mg/dL 05/28/2025 7:46 PM CDT DTL Glucose, S 122 70 - 140 mg/dL 05/28/2025 7:46 PM CDT DTL Protein, Total, S 7.1 6.3 - 7.9 g/dL 05/28/2025 7:46 PM CDT DTL Albumin, S 4.5 3.5 - 5.0 g/dL 05/28/2025 7:46 PM CDT DTL Aspartate Aminotransferase (AST), S 38 8 - 43 U/L 05/28/2025 7:46 PM CDT DTL Alkaline Phosphatase, S 87 35 - 104 U/L 05/28/2025 7:46 PM CDT DTL Alanine Aminotransferase (ALT), S 41 7 - 45 U/L 05/28/2025 7:46 PM CDT DTL Bilirubin, Total, S 0.3 0.0 - 1.2 mg/dL 05/28/2025 7:46 PM CDT DTL Blood (Blood, Venous) 05/28/2025 4:31 PM CDT 05/28/2025 4:43 PM CDT us Renita Potts APRN, C.N.P., D.N.P. LAB BLOOD A DD-ON Final Result [facility] [address] [place] [address], [facility] DTL [facility] [address] [place] [address] * CBC no call back, reflex T/S HGB <8 (05/28/2025 4:31 PM CDT) Hemoglobin 12.6 11.6 - 15.0 g/dL 05/28/2025 4:59 PM CDT DTL Hematocrit 37.7 35.5 - 44.9 % 05/28/2025 4:59 PM CDT DTL Erythrocytes 4.60 3.92 - 5.13 x10(12)/L 05/28/2025 4:59 PM CDT DTL MCV 82.0 78.2 - 97.9 fL 05/28/2025 4:59 PM CDT DTL RBC Distrib Width 14.1 12.2 - 16.1 % 05/28/2025 4:59 PM CDT DTL Platelet Count 199 157 - 371 x10(9)/L 05/28/2025 4:59 PM CDT DTL Leukocytes 4.1 3.4 - 9.6 x10(9)/L 05/28/2025 4:59 PM CDT DTL Neutrophils 2.63 1.56 - 6.45 x10(9)/L 05/28/2025 4:59 PM CDT DHPM Lymphocytes 0.99 0.95 - 3.07 x10(9)/L 05/28/2025 4:59 PM CDT DTL Monocytes 0.36 0.26 - 0.81 x10(9)/L 05/28/2025 4:59 PM CDT DTL Eosinophils 0.11 0.03 - 0.48 x10(9)/L 05/28/2025 4:59 PM CDT DTL Basophils 0.03 0.01 - 0.08 x10(9)/L 05/28/2025 4:59 PM CDT DTL Blood (Blood, Venous) 05/28/2025 4:31 PM CDT 05/28/2025 4:43 PM CDT Renita Potts APRN, C.N.P., D.N.P. LAB BLOOD N ON ADD-ON Final Result [facility] [address] [place] [address], [facility] DTL [facility] [facility] [address] [place] [address] [facility] [address] [place] [address] documented in this encounter Visit Diagnoses Diagnosis Nausea And Vomiting- Primary Pain Neuropathic Depressive Disorder Transplant Stem Cell (HCC) documented in this encounter Admitting Diagnoses Diagnosis Nausea And Vomiting documented in this encounter Administered Medications Inactive Administered Medications - up to 3 most recent administrations Medication Order MAR Action Action Date Dose Rate Site acyclovir tablet 400 mg (Zovirax) 400 mg, oral, 2 times daily, First dose on Sun05/28/25 at 2100, Drug Monitoring Program: Pharmacist to adjust medication dosing based on indication and drug clearance factors., Indications: Prophylaxis, medicalIndications:Prophylaxis, medical Given 05/29/2025 8:13 AM CDT 400 mg Given 05/28/2025 8:51 PM CDT 400 mg ARIPiprazole tablet 10 mg (Abilify) 10 mg, oral, Every afternoon, First dose (after last modification) on Sun05/28/25 at 1700 Given 05/28/2025 5:52 PM CDT 10 mg buprenorphine 5 mcg/hour 1 patch (Butrans) 1 patch, transdermal, Administer over 7 Days, Weekly, First dose (after last modification) on Sun06/04/25 at 0900, Indications: Chronic Pain/Nonacute PainIndications:Chronic Pain/Nonacute Pain cholecalciferol (vitamin D3) tablet 50 mcg 50 mcg, oral, Daily, First dose on Sun05/29/25 at 0900, cholecalciferol (vitamin D3) orderable was interchanged for cholecalciferol (vitamin D3) tablet/capsule Given 05/29/2025 8:13 AM C DT [address] capsule 120 mg (Cymbalta) 120 mg, oral, Daily, First dose on Sun05/29/25 at 0900, See tube feeding guidelines for tube feeding administration instructions. Given 05/29/2025 12:55 PM CDT 120 mg famotidine injection 20 mg (Pepcid) 20 mg, intravenous, 2 times daily, First dose on Sun05/28/25 at 2100, Drug Monitoring Program: Pharmacist to adjust medication dosing based on indication and drug clearance factors. Given 05/29/2025 8:13 AM CDT 20 mg Given 05/28/2025 8:51 PM CDT 20 mg HYDROmorphone liquid 0.5 mg (Dilaudid) 0.5 mg, oral, Bedtime PRN, severe pain or score 7-10 of 10, Starting on Sun05/28/25 at 1640, Does patient have renal impairment, frailty, or advanced age (avoid morphine) and unable to take oxycodone? No, Did the patient fail other oral opioids during hospitalization? Yes, Does the patient have documented allergies to oxycodone and/or morphine? Yes, Is the patient on hydromorphone chronically for pain? Yes, Indications: Chronic Pain/Nonacute PainIndications:Chronic Pain/Nonacute Pain hydrOXYzine tablet 50 mg (Atarax) 50 mg, oral, Once as needed, anxiety, Starting on Sun05/28/25 at 1908, For 1 dose Given 05/28/2025 7:56 PM CDT 50 mg iohexoL 300 mg iodine/mL solution 1-200 mL (Omnipaque) 1-200 mL, intravenous, Once in imaging, contrast, Starting on Sun05/28/25 at 1738, For 1 dose, Imaging Protocol Orders, Dose per Radiant Medication Guidelines Given 05/28/2025 5:38 PM CDT 140 mL melatonin tablet 5 mg 5 mg, oral, Daily at bedtime, First dose on Sun05/28/25 at 2100 Given 05/28/2025 8:51 PM CDT 5 mg naloxone injection 0.4 mg (Narcan) 0.4 mg, intravenous, As needed, reversal, Starting on Sun05/28/25 at 1719 ondansetron (PF) injection 8 mg (Zofran) 8 mg, intravenous, Every 8 hours PRN, nausea, vomiting, active vomiting or unable to tolerate PO dose, Starting on Sun05/28/25 at 1547 ondansetron ODT disintegrating tablet 8 mg (Zofran-ODT) 8 mg, oral, Every 8 hours PRN, nausea, vomiting, Starting on Sun05/28/25 at 1547 penicillin V potassium tablet 500 mg (Veetids) 500 mg, oral, 2 times daily, First dose on Sun05/28/25 at 2100, Drug Monitoring Program: Pharmacist to adjust medication dosing based on indication and drug clearance factors., Indications: Prophylaxis, medicalIndications:Prophylaxis, medical Given 05/29/2025 8:13 AM CDT 500 mg Given 05/28/2025 8:51 PM CDT [address] tablet 300 mg (NoxafiL) 300 mg, oral, Daily, First dose on Sun05/29/25 at 0900, Swallow whole. Do NOT crush, chew, or split tablet., Drug Monitoring Program: Pharmacist to adjust medication dosing based on indication and drug clearance factors., Indications: Prophylaxis, medicalIndications:Prophylaxis, medical Given 05/29/2025 8:13 AM CDT 300 mg predniSONE tablet 50 mg (Deltasone) 50 mg, oral, Daily, First dose on Sun06/02/25 at 0900, For 5 days predniSONE tablet 60 mg (Deltasone) 60 mg, oral, Daily, First dose on Sun05/28/25 at 1800, For 5 doses, Given 05/29/2025 8:13 AM CDT 60 mg Given 05/28/2025 5:52 PM CDT 60 mg prochlorperazine injection 10 mg (Compazine) 10 mg, intravenous, Every 6 hours PRN, nausea, vomiting, active vomiting or unable to tolerate PO dose, Starting on Sun05/28/25 at 1547 Given 05/29/2025 10:50 AM CDT 10 mg Given 05/28/2025 4:35 PM CDT 10 mg prochlorperazine tablet 10 mg (Compazine) 10 mg, oral, Every 6 hours PRN, nausea, Starting on Sun05/28/25 at 1547 sodium chloride (PF) 0.9 % injection 1-100 mL 1-100 mL, intravenous, Once, On Sun05/28/25 at 1800, For 1 dose, Imaging Protocol Orders, Dose per Radiant Medication Guidelines Given 05/28/2025 5:38 PM CDT 50 mL sulfamethoxazole-trimethoprim 400-80 mg per tablet 1 tablet (Bactrim) 1 tablet, oral, Daily, First dose on Sun05/29/25 at 0900, Drug Monitoring Program: Pharmacist to adjust medication dosing based on indication and drug clearance factors., Indications: Prophylaxis, medicalIndications:Prophylaxis, medical Given 05/29/2025 8:13 AM CDT 1 ta blet documented in this encounter Active and Recently Administered Medications Times are shown in CDT. Scheduled Medication Order 05/27/2025 05/28/2025 05/29/2025 acyclovir tablet 400 mg (Zovirax) 400 mg, oral, 2 times daily, First dose on Sun05/28/25 at 2100, Drug Monitoring Program: Pharmacist to adjust medication dosing based on indication and drug clearance factors., Indications: Prophylaxis, medical 2050 (Given - Provider: Nayeli Mcgovern R.N.) 0813 (Given - Provider: Lucy Stout R.N., DANNI, O.C.N.) ARIPiprazole tablet 10 mg (Abilify) 10 mg, oral, Every afternoon, First dose (after last modification) on Sun05/28/25 at 1700 1752 (Given - Provider: Juan Mahmood R.N.) 1600 (Due) buprenorphine 5 mcg/hour 1 patch (Butrans) 1 patch, transdermal, Administer over 7 Days, Weekly, First dose (after last modification) on Sun06/04/25 at 0900, Indications: Chronic Pain/Nonacute Pain cholecalciferol (vitamin D3) tablet 50 mcg 50 mcg, oral, Daily, First dose on Sun05/29/25 at 0900, cholecalciferol (vitamin D3) orderable was interchanged for cholecalciferol (vitamin D3) tablet/capsule 0813 (Given - Provid er: Lucy Stout R.N., DANNI, O.C.N.) DULoxetine DR capsule 120 mg (Cymbalta) 120 mg, oral, Daily, First dose on Sun05/29/25 at 0900, See tube feeding guidelines for tube feeding administration instructions. 1255 (Given - Provid er: Lucy Stout R.N., DANNI, O.C.N.) famotidine injection 20 mg (Pepcid) 20 mg, intravenous, 2 times daily, First dose on Sun05/28/25 at 2100, Drug Monitoring Program: Pharmacist to adjust medication dosing based on indication and drug clearance factors. 2050 (Given - Provider: Nayeli Mcgovern R.N.) 812 (Given - Provider: Lucy Stout R.N., DANNI, O.C.N.) melatonin tablet 5 mg 5 mg, oral, Daily at bedtime, First dose on Sun05/28/25 at 2099 2050 (Given - Provider: Nayeli Mcgovern R.N.) penicillin V potassium tablet 500 mg (Veetids) 500 mg, oral, 2 times daily, First dose on Sun05/28/25 at 2100, Drug Monitoring Program: Pharmacist to adjust medication dosing based on indication and drug clearance factors., Indications: Prophylaxis, medical 2050 (Given - Provider: Nayeli Mcgovern R.N.) 812 (Given - Provider: Lucy Stout R.N., DANNI, O.C.N.) posaconazole DR tablet 300 mg (NoxafiL) 300 mg, oral, Daily, First dose on Sun05/29/25 at 0900, Swallow whole. Do NOT crush, chew, or split tablet., Drug Monitoring Program: Pharmacist to adjust medication dosing based on indication and drug clearance factors., Indications: Prophylaxis, medical 812 (Given - Provid er: Lucy Stout R.N., DANNI, O.C.N.) predniSONE tablet 50 mg (Deltasone)(Linked Group 1) 50 mg, oral, Daily, First dose on Sun06/02/25 at 0900, For 5 days predniSONE tablet 60 mg (Deltasone)(Linked Group 1) 60 mg, oral, Daily, First dose on Sun05/28/25 at 1800, For 5 doses, 1751 (Given - Provider: Juan Mahmood R.N.) 0813 (Given - Provider: Lucy Stout R.N., DANNI, O.C.N.) sodium chloride (PF) 0.9 % injection 1-100 mL (COMPLETED) 1-100 mL, intravenous, Once, On [facility] 05/28/25 at 1800, For 1 dose, Imaging Protocol Orders, Dose per Radiant Medication Guidelines 1738 (Given - Provider: Judah Ibrahim) sulfamethoxazole-trimethopri m 400-80 mg per tablet 1 tablet (Bactrim) 1 tablet, oral, Daily, First dose on Sun05/29/25 at 0900, Drug Monitoring Program: Pharmacist to adjust medication dosing based on indication and drug clearance factors., Indications: Prophylaxis, medical 08 (Given - Provid er: Lucy Stout R.N., DANNI, O.C.N.) PRN Medication Order 05/27/2025 05/28/2025 05/29/2025 alteplase 1 mg/mL injection 2 mg (Cathflo Activase) 2 mg, intra-catheter, As needed, Per catheter lumen. May repeat x1 dose in 2 hours, Starting on Tig[facility] 05/28/25 at 1547, Maximum dose is 4 mg per catheter lumen over 24 hours For Cathflo Activase vials - Reconstitute each 2mL vial with 2.2mL SWFI. Slight foaming may occur. Let stand to allow bubbles to dissipate. Gently swirl. Do NOT shake. Resulting solution will be colorless to pale yellow and transparent. For Frozen Syringes - Allow alteplase solution to fully thaw at room temperature prior to intra-catheter instillation. calcium carbonate chewable tablet 200 mg of calcium (Tums) 200 mg of calcium, oral, Daily PRN, heartburn, indigestion, Starting on Tig[facility] 05/28/25 at 1547, Doses listed are in mg of elemental calcium. Take with food. 500 mg calcium carbonate contains 200 mg of elemental calcium. HYDROmorphone liquid 0.5 mg (Dilaudid) 0.5 mg, oral, Bedtime PRN, severe pain or score 7-10 of 10, Starting on Tig[facility] 05/28/25 at 1640, Does patient have renal impairment, frailty, or advanced age (avoid morphine) and unable to take oxycodone? No, Did the patient fail other oral opioids during hospitalization? Yes, Does the patient have documented allergies to oxycodone and/or morphine? Yes, Is the patient on hydromorphone chronically for pain? Yes, Indications: Chronic Pain/Nonacute Pain hydrOXYzine tablet 50 mg (Atarax) (COMPLETED) 50 mg, oral, Once as needed, anxiety, Starting on [facility] 05/28/25 at 1908, For 1 dose 1955 (Given - Provider: Nayeli Mcgovern R.N.) iohexoL 300 mg iodine/mL solution 1-200 mL (Omnipaque) (COMPLETED) 1-200 mL, intravenous, Once in imaging, contrast, Starting on [facility] 05/28/25 at 1738, For 1 dose, Imaging Protocol Orders, Dose per Radiant Medication Guidelines 173 (Given - Provider: Judah Ibrahim) naloxone injection 0.4 mg (Narcan) 0.4 mg, intravenous, As needed, reversal, Starting on [facility] 05/28/25 at 1719 ondansetron (PF) injection 8 mg (Zofran)(Linked Group 2) 8 mg, intravenous, Every 8 hours PRN, nausea, vomiting, active vomiting or unable to tolerate PO dose, Starting on [facility] 05/28/25 at 1547 ondansetron ODT disintegrating tablet 8 mg (Zofran-ODT)(Linked Group 2) 8 mg, oral, Every 8 hours PRN, nausea, vomiting, Starting on [facility] 05/28/25 at 1547 prochlorperazine injection 10 mg (Compazine)(Linked Group 3) 10 mg, intravenous, Every 6 hours PRN, nausea, vomiting, active vomiting or unable to tolerate PO dose, Starting on [facility] 05/28/25 at 1547 1635 (Given - Provider: Juan Mahmood R.N.) 1050 (Given - Provider: Lucy Stout R.N., [facility], O.C.N.) prochlorperazine tablet 10 mg (Compazine)(Linked Group 3) 10 mg, oral, Every 6 hours PRN, nausea, Starting on [facility] 05/28/25 at 1547 1635 (See Alternative - Provider: Vickie MinerN.) 1050 (See Alternative - Provider: Lucy Stout R.N., [facility], O.C.N.) sennosides-docusate sodium 8.6-50 mg per tablet 1 tablet (Senokot-S) 1 tablet, oral, 2 times daily PRN, constipation, Starting on [facility] 05/28/25 at 1547 Linked Groups Order Group 1: predniSONE tablet 60 mg (Deltasone)Jump to med 60 mg, oral, Daily, First dose on Sun05/28/25 at 1800, For 5 doses, Followed by predniSONE tablet 50 mg (Deltasone)Jump to med 50 mg, oral, Daily, First dose on Sun06/02/25 at 0900, For 5 days Group 2: ondansetron ODT disintegrating tablet 8 mg (Zofran-ODT)Jump to med 8 mg, oral, Every 8 hours PRN, nausea, vomiting, Starting on [facility] 05/28/25 at 1547 Or ondansetron (PF) injection 8 mg (Zofran)Jump to med 8 mg, intravenous, Every 8 hours PRN, nausea, vomiting, active vomiting or unable to tolerate PO dose, Starting on [facility] 05/28/25 at 1547 Group 3: prochlorperazine tablet 10 mg (Compazine)Jump to med 10 mg, oral, Every 6 hours PRN, nausea, Starting on [facility] 05/28/25 at 1547 Or prochlorperazine injection 10 mg (Compazine)Jump to med 10 mg, intravenous, Every 6 hours PRN, nausea, vomiting, active vomiting or unable to tolerate PO dose, Starting on Tigist 05/28/25 at 1547 documented in this encounter Additional Health Concerns Infection Onset Date Last Indicated Resolved Time Protective Environment 03/02/2023 03/02/2023 Assessment Noted Time PHQ-9 Depression Total Score: 2 12/10/19 25 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 [address] [place] [address] [place] [id number] PCP - General Family Medicine 04/25/23 documented as of this encounter
--- OUTSIDE RECORDS SUMMARY | 2025-06-01 12:04 | XMS_ITS | Encounter Summary ---
Author Organization [facility] Address [address] [place] [address] Care Team Providers Care Post Adoption Coordinator Name Role Phone Renzo Andres M.D. 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 [address] [place] [phone] Phone: tel: fax: [facility] Referral ID Status Reason Start Date Expiration Date Visits Re quested Visits Authorized [id number] Closed 05/29/2025 08/29/2026 1 1 Reason for Visit * Gastrointestinal (Routine) - Closed Specialty Diagnoses / Procedures Referred By Estefania acosta Referred To Contact Diagnoses Transplant Stem Cell (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) Procedures EGD (EsophagoGastroDuodenoscopy) Lito Pollock P.A.-C. [address] [place] [phone] Phone: tel: fax: [facility] Referral ID Status Reason Start Date Expiration Date Visits Re quested Visits Authorized [id number] Closed 05/29/2025 08/29/2026 1 1 Encounter Details Date Type Department Care Team (Latest Contact Info) Description 06/01/2025 12:04 PM CDT - 06/01/2025 11:59 PM CDT Hospital Encounter Division of Gastroenterology in [place], [place] [address] [place] [phone] Lito Pollock P.A.-C. [address] [place] [phone] Jeaneth Núñez M.B.B.S., M.S. [address] [place] [phone] Transplant Stem Cell (HCC); 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) Discharge Disposition: Home or Self Care Social History Tobacco Use Types Packs/Day Years Used Date Smoking Tobacco: Never Smokeless Tobacco: Never Alcohol Use Standard Drinks/Week Comments Yes 0 (1 standard drink = 0.6 oz pur e alcohol) social [facility] Utilities Answer Date Recorded In the past 12 months has e [employer], gas, oil, or water [employer] threatened to shut off services in your [...] your living situation today? I have a [facility] place to live 05/28/2025 Education Answer Date Recorded What is the highest level of school you have completed or the highest degree you have received? 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 [address] [place] [phone] 07/15/2025 9:00 AM CDT Telemedicine Pedro Aravind [facility] in [place], [place] [address] [place] [phone] Jessica Rousseau M.B.B.S. [address] [place] [phone] 08/11/2025 9:00 AM CDT Nurse Only Section of Infectious Diseases in [place], [place] [address] [place] [phone] Jessica Rousseau M.B.B.S. [address] [place] [phone] 08/11/2025 10:20 AM CDT Comprehensive Visit Division of Gastroenterology in [place], [place] [address] [place] [address] Jessica Rousseau M.B.B.S. [address] [place] [phone] 08/11/2025 1:00 PM CDT Clinical Support Department of Palliative Care in [place], [place] [address] [place] [address] Uma Aly APRN, C.N.P., M.S.N. [address] [place] [phone] 08/13/2025 10:00 AM CDT Lab Department of Laboratory Medicine and Pathology, [facility], in [place], [place] [address] [place] [address] Jessica Rousseau M.B.B.S. [address] [place] [phone] 08/13/2025 10:30 AM CDT [facility] [place], [place] [address] [place] [address] Jessica Rousseau M.B.B.S. [address] [place] [phone] 08/13/2025 11:00 AM CDT Nurse Only [facility] in [place], [place] [address] [place] [address] Jessica Rousseau M.B.B.S. [address] [place] [address] 08/13/2025 11:30 AM CDT Office Visit Pedro sanchez [facility] Trans[facility] Clinical [facility] in [place], [place] [address] [place] [address] Jessica Rousseau M.B.B.S. [address] [place] [address] documented as of this encounter Procedures Procedure [...] submitted en toto in cassette B1. Grossed byHALLE. C: Received in formalin labeled with the [...] sprue, or Giardia. No definite evidence for lcqtk-foqz-gw sease. B. Stomach, random sites, endoscopic biopsy: Antral and fundic mucosa with patchy mild reactive gastropathy. No H pylori. No dysplasia. No definite evidence for pexdv-srzl-ia sease. C. Esophagus, random sites, endoscopic biopsy: Squamous esophageal mucosa without diagnostic abnormality. No intraepitheli al eosinophils. No definite evidence for eibna-rerj-yh sease. Digital imaging was used in the diagnostic assessment of this case. 06/02/2025 1:48 PM CDT DTL Biopsy (Duodenum) 06/01/2025 1:48 PM CDT Biopsy (Stomach) 06/01/2025 1:50 PM CDT Biopsy (Esophagus) 06/01/2025 1:51 PM CDT Jeaneth DowlingB.S., M.S. LAB SURG PATH CARLOS AMAYA Final Result [facility] [address] [place] [address], [facility] DTL [address] [place] [address] * Upper GI Endoscopy (06/01/2025 1:11 PM CDT) 06/01/2025 1:11 PM CDT [facility] 06/01/[facility]25 1:56 PM CDT Post-op Diagnoses: - Normal esophagus. Biopsied. - Normal stomach. Biopsied. - A few gastric polyps with fundic gland appearance. - Normal examined duodenum. Biopsied. Narrative [facility] - 06/01/2025 1:56 PM CDT Gonda 2 GI Patient Name: Radha Martinez Date of : 1990 Age: 35 Procedure Date: 06/01/2025 Procedure: Upper GI endoscopy Providers: JAYNA Graff Referring Provider: Lito Pollock Pre-op Diagnoses: Suspected ztgss-tdlpex-ejkv disease, Exclusion of krtjc-byrxey-naov disease, Nausea Recommendation: - Await pathology results. [...] 0 Note Initiated On: 06/01/2025 1:11 PM us Lito Pollock P.A.-C. 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 [address] [place] [address] SUNNY Hansen [phone] PCP - General Family Medicine 04/25/23 documented as of this encounter
--- OUTSIDE RECORDS SUMMARY | 2025-06-01 13:15 | XMS_ITS | Encounter Summary ---
Author Organization [facility] Address [address] [place] [address] Care Team Providers Care Cargo Surveyor Name Role Phone Renzo Andres M.D. Primary Care Provider [phone] Encounter Details Date Type Department Care Team (Latest Contact Info) Description 06/01/2025 1:15 PM CDT Ancillary Procedure Department of Gastroenterology Social History Tobacco Use Types Packs/Day Years Used Date Smoking Tobacco: Never Smokeless Tobacco: Never Alcohol Use Standard Drinks/Week Comments Yes 0 (1 standard drink = 0.6 oz pur e alcohol) social C Utilities Answer Date Recorded In the past 12 months has e [employer], gas, oil, or water [employer] threatened to shut off services in your [...] a [facility] place to live 05/28/2025 Education Answer Date Recorded What is the highest level of school you have completed or the highest degree you have received? Some college, no degree 04/24/2019 Comments No Sex and Gender Information Value Date Recorded Sex Assigned at Female 12/26/2018 8:37 PM REGENERATION OPERATOR Legal Sex Female 2:43 PM REGENERATION OPERATOR Gender Identity Female 12/26/2018 8:37 PM REGENERATION OPERATOR Sexual Orientation Choose not to disclose 2020 3:46 PM CDT documented as of this encounter Plan of Treatment Upcoming Encounters Date Type Department Care Team (Latest Contact Info) Description 07/03/2025 8:00 AM CDT Telemedicine Department of Palliative Care in [place], [place] 200 [place] [phone] Yary Landa D.O. [address] [place] [phone] 07/15/2025 9:00 AM CDT Telemedicine [facility] in [place], [place] [address] [place] [phone] Jessica Rousseau M.B.B.S. [address] [place] [phone] 08/11/2025 9:00 AM CDT Nurse Only Section of Infectious Diseases in [place], [place] [address] [place] [phone] Jessica Rousseau M.B.B.S. [address] [place] [phone] 08/11/2025 10:20 AM CDT Comprehensive Visit Division of Gastroenterology in [place], [place] [address] [place] [phone] Jessica Rousseau M.B.B.S. [address] [place] [phone] 08/11/2025 1:00 PM CDT Clinical Support Department of Palliative Care in [place], [place] [address] [place] [phone] Uma Aly APRN, C.N.P., M.S.N. [address] [place] [phone] 08/13/2025 10:00 AM CDT Lab Department of Laboratory Medicine and Pathology, [facility], in [place], [place] [address] [place] [phone] Jessica Rousseau M.B.B.S. [address] [place] [phone] 08/13/2025 10:30 AM CDT Office Visit [facility] in [place], [place] [address] [place] [phone] Jessica Rousseau M.B.B.S. [address] [place] [phone] 08/13/2025 11:00 AM CDT [facility] in [place], [place] [address] [place] [address] Jessica Rousseau M.B.B.S. [address] [place] [address] 08/13/2025 11:30 AM CDT [facility] in [place], [place] [address] [place] [address] Jessica Rousseau M.B.B.S. [address] [place] [address] documented as of this encounter Procedures Procedure Name Priority Date/Time Associated Diagnosis Comments GASTROENTEROLOGY IMAGE EXAM Routine 06/01/2025 1:15 PM CDT documented in this encounter Results * Upper GI endoscopy-Gastroenterology Image Exam (06/01/2025 1:15 PM CDT) 06/01/2025 1:11 PM CDT Narrative [facility] - 06/01/2025 2:04 PM CDT This order has been created and auto-finalized to support the import of images acquired without order. The clinical documentation to support these images can be found on the encounter that produced images. us Provider Not In System IMG NON RAD IMAGING PROCE DURES Final Result [facility] NA documented in this encounter Visit Diagnoses Not on filedocumented in this encounter Additional Health Concerns Infection Onset Date Last Indicated Resolved Time Protective Environment 03/02/2023 03/02/2023 Assessment Noted Time PHQ-9 Depression Total Score: 2 12/10/19 25 2:46 PM REGENERATION OPERATOR documented as of this encounter Care Teams Cargo Surveyor Relationship Specialty Start Date End Date Renzo Andres M.D. [address] [place] [address] [place] [phone] PCP - General Family Medicine 04/25/23 documented as of this encounter
--- OUTSIDE RECORDS SUMMARY | 2025-06-01 13:39 | XMS_ITS | Encounter Summary ---
Author Organization [facility] Address [address] [place] [address] Care Team Providers Care Auto Engine Mechanic Name Role Phone Renzo Andres M.D. Primary Care Provider [phone] Encounter Details Date Type Department Care Team (Late st Contact Info) Description 06/01/2025 1:39 PM CDT Anesthesia Event Division of Gastroenterology in [place], [place] [address] [place] [phone] Isaias Tolbert, KARON, SPECIAL AGENT [employer] [address] [place] [phone] Bri Valenzuela M.D. [address] [place] [phone] Anesthesia Record Procedure Summary Procedure Name Responsible Anesthesiologist Anesthesia Start Time Anesthesia Stop Time EGD (ESOPHAGOGASTRODUOD ENOSCOPY) Isaias Tolbert APRN, SPECIAL AGENT FBI 06/01/25 1339 06/01/25 1358 Events Date Time [...] Airways Type Details Placement Removal Wound 02/18/25; 0944; N; Incision; Iliac crest; Right, Posterior; bmbx site; 06/15/25 (no longer present) 02/18/25 0944 by Marta Kramer R.N. 06/15/25 0000 by Chelsy Piper RKatalinaNKatalina Peripheral IV Placement Date: 05/19 ; Placement Time: 1633; Catheter Size: 20 G; Orientation: Left, Posterior; Location: Hand; Site Prep: Chlorhexidine (Preferred); Insertion Attempts: 1; Removal Date: 06/01/25; Removal Time: 1330 (not present) 05/28/25 1633 by Morales Loo 06/01/25 1330 by Yolanda Singh R.NKatalina Peripheral IV Placement Date: 05/19 03/13; Placement Time: 1333; Catheter Size: 22 G; Orientation: Posterior, Right; Location: Hand; Site Prep: Chlorhexidine (Preferred); Technique: Anatomical landmarks; Inserted by: Yolanda; Insertion Attempts: 1; Removal Date: 06/01/25; Removal Time: 1425; Removal Reason: Patient discharged 06/01/25 1333 by Yolanda Singh R.NKatalina 06/01/25 1425 by Yolanda Singh RHelio. documented in this encounter Social History Tobacco Use Types Packs/Day Years Used Date Smoking Tobacco: Never Smokeless Tobacco: Never Alcohol Use Standard Drinks/Week Comments Yes 0 (1 standard drink = 0.6 oz pur e alcohol) social [facility] Utilities Answer Date Recorded In [...] [facility] place to live 05/28/2025 Education Answer Date Recorded What is the highest level of school you have completed or the highest degree you have received? Some college, no degree 04/24/2019 Comments No Sex and Gender Information Value Date Recorded Sex Assigned at Female 12/26/2018 8:37 PM CLAMSHELL OPERATOR Legal Sex Female 2:43 PM CLAMSHELL OPERATOR Gender Identity Female 12/26/2018 8:37 PM CLAMSHELL OPERATOR Sexual Orientation Choose not to disclose 2020 3:46 PM CDT documented as of this encounter OR Notes * Anesthesia Postprocedure Evaluation - Isaias Tolbert APRN, CRNA - 06/01/2025 1:58 PM CDT Patient: Radha Martinez Procedure Summary Date: 06/01/25 Room / Location: Division of Gastroenterology in [place], [place] Anesthesia Start: 1339 Anesthesia Stop: 1358 [...] (HCC) [C92.10] Location: Division of Gastroenterology in [place], [place] Pertinent components of the patient's history [...] MAC BMI 34; CML s/p SCT. Multiple MACs for cancer care. MAC. Patient seen and allergies reviewed, anesthesia plan and risks discussed directly with patient /legal guardian or through an central supply tech. The use of blood products not discussed Approval to Proceed: approved for anesthesia documented in this encounter Plan of Treatment Upcoming Encounters Date Type Department Care Team (Latest Contact Info) Description 07/03/2025 8:00 AM CDT Telemedicine Department of Palliative Care in [place], [place] [address] [place] [phone] Yary Landa, Cesar [address] [place] [phone] 07/15/2025 9:00 AM CDT Telemedicine Pedro Aravind [facility] for Transplantation and Clinical Regeneration in [place], [place] [address] [place] [phone] Jessica Rousseau M.B.B.S. [address] [place] [phone] 08/11/2025 9:00 AM CDT Nurse Only Section of Infectious Diseases in [place], [place] [address] [place] [phone] Jessica Rousseau M.B.B.S. [address] [place] [phone] 08/11/2025 10:20 AM CDT Comprehensive Visit Division of Gastroenterology in [place], [place] [address] [place] [address] Jessica Rousseau M.B.B.S. [address] [place] [phone] 08/11/2025 1:00 PM CDT Clinical Support Department of Palliative Care in [place], [place] [address] [place] [address] Uma Aly APRN, C.N.P., M.S.N. [address] [place] [phone] 08/13/2025 10:00 AM CDT Lab Department of Laboratory Medicine and Pathology, [facility] in [place], [place] [address] [place] [address] Jessica Rousseau M.B.B.S. [address] [place] [phone] 08/13/2025 10:30 AM CDT [facility] in [place], [place] [address] [place] [address] Jessica Rousseau M.B.B.S. [address] [place] [phone] 08/13/2025 11:00 AM CDT Nurse Only Pedro sanchez [facility] for Transplantation and Clinical Regeneration in [place], [place] [address] [place] [address] Jessica Rousseau M.B.B.S. [address] [place] [phone] 08/13/2025 11:30 AM CDT Office Visit Pedro sanchez [facility] for Transplantation and Clinical Regeneration in [place], [place] [address] [place] [phone] Jessica Rousseau M.B.B.SKatalina [address] [place] [phone] documented as of this encounter Visit Diagnoses [...] Total Score: 2 12/10/19 25 2:46 PM CLAMSHELL OPERATOR documented as of this encounter Care Teams Auto Engine Mechanic Relationship Specialty Start Date End Date Renzo Andres M.D. [address] [place] [address] [place] [phone] PCP - General Family Medicine 04/25/23 documented as of this encounter
--- OUTSIDE RECORDS SUMMARY | 2025-06-03 10:00 | XMS_ITS | Encounter Summary ---
Author Organization [facility] Address [address] [place] [address] Care Team Providers Care Consulting Nurse Name Role Phone Renzo Andres M.D. Primary Care Provider [phone] Reason for Referral * MRI/CAT/PET Scan (Routine) - Closed Specialty Diagnoses / Procedures Referred By Estefania t Referred To Contact Radiology Diagnoses Transplant Stem Cell (HCC) Procedures CT Chest Angiogram and Pulmonary Arteries with IV Contrast CT Chest with IV Contrast Jessica Avila APRN, C.N.P., M.S.N. [address] [place] [phone] Phone: tel: fax: [facility] Region Referral ID Status Reason Start Date Expiration Date Visits Re quested Visits Authorized [id number] Closed 06/03/2025 09/03/2026 1 1 Reason for Visit * Transplant (Routine) - Closed Specialty Diagnoses / Procedures Referred By Contac t Referred To Contact Transplant Tessa Jesus APRN, C.N.P., D.N.P. [address] [place] [phone] Phone: tel: fax: [facility] Referral ID Status Reason Start Date Expiration Date Visits Re quested Visits Authorized [id number] Closed 05/20/2025 11/19/2026 1 1 Encounter Details Date Type Department Care Team (Latest Contact Info) Description 06/03/2025 10:00 AM CDT Office Visit Pedro sanchez [facility] for Transplantation and Clinical Regeneration in [place], [place] [address] [place] [address] Tessa Jesus APRN, C.N.P., D.N.P. [address] [place] [address] Jessica Avial APRN, C.N.P., M.S.N. [address] [place] [address] Transplant Stem Cell (HCC) (Primary Dx) Social History Tobacco Use Types Packs/Day Years Used Date Smoking Tobacco: Never Smokeless Tobacco: Never Alcohol Use Standard Drinks/Week Comments Yes 0 (1 standard drink = 0.6 oz pur e alcohol) social [facility] Utilities Answer Date Recorded In the past 12 months has e [employer], gas, oil, or water [employer] threatened to shut off services in your [...] your living situation today? I have a [facility] place to live 05/28/2025 Education Answer Date Recorded What is the highest level of school you have completed or the highest degree you have received? Some college, no degree 04/24/2019 Comments No Sex and Gender Information Value Date Recorded Sex Assigned at Female 12/26/2018 8:37 PM MANAGER SITE Legal Sex Female 2:43 PM MANAGER SITE Gender Identity Female 12/26/2018 8:37 PM MANAGER SITE Sexual Orientation Choose not to disclose 2020 [...] SUBJECTIVE TRANSPLANT PHYSICIAN Dr. Jessica Rousseau, pager [phone]. HISTORY OF PRESENT ILLNESS Radha Martinez is a 35 y.o. female with a past medical history significant for CML who received a MUD HCT on 12/10/24. She is at [facility] today for the follow up. Day + 175 HISTORY OF PRESENT ILLNESS Please refer to multiple prior notes in EMR for complete hematologic history: Ms. Martinez is a 35 y.o. 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 At the time of diagnosis, there was grade 3 reticulin fibrosis noted. The cytogenetics identified a [place] chromosome in 20 metaphases. The BCR-ABL1 P [...] t(9;22) metaphases. NGS is positive for ASXL1 p.Ukz248Mwcwu*12 (20%) and p.Dzn119* (3%). 06/17/2024: feeling quite symptomatic since the [...] Access Camargo CVC placed on 12/03/24 by [facility]. Social Work Seen and cleared [...] prophylaxis: Ursodiol 600 mg two times daily. [facility] ID Number: [id number] [...] donor DNA and approximately 40% recipient DNA. [id number]% donor DNA and approximately 0% recipient DNA. [...] right eye. Wears glasses. - Followed by [facility] in [place], [place]. - Patient will notify team if [...] CDT Telemedicine Department of Palliative Care in [place], [place] [address] [place] [phone] Yary Landa D.O. [address] [place] [phone] 07/15/2025 9:00 AM CDT Telemedicine Pedro Aravind [facility] for Transplantation and Clinical Regeneration in [place], [place] [address] [place] [phone] Jessica Rousseau M.B.B.S. [address] [place] [phone] 08/11/2025 9:00 AM CDT Nurse Only Section of Infectious Diseases in [place], [place] [address] [place] [address] Jessica Rousseau M.B.B.S. [address] [place] [phone] 08/11/2025 10:20 AM CDT Comprehensive Visit Division of Gastroenterology in [place], [place] [address] [place] [address] Jessica Rousseau M.B.B.S. [address] [place] [phone] 08/11/2025 1:00 PM CDT Clinical Support Department of Palliative Care in [place], [place] [address] [place] [address] Uma Aly APRN, C.N.P., M.S.N. [address] [place] [phone] 08/13/2025 10:00 AM CDT Lab Department of Laboratory Medicine and Pathology, [facility], in [place], [place] [address] [place] [address] Jessica Rousseau M.B.B.S. [address] [place] [phone] 08/13/2025 10:30 AM CDT [facility] Clinical Regeneration in [place], [place] [address] [place] [address] Jessica Rousseau M.B.B.S. [address] [place] [phone] 08/13/2025 11:00 AM CDT Nurse Only Pedro sanchez [facility] Transplantation and Clinical Regeneration in [place], [place] [address] [place] [address] Jessica Rousseau M.B.B.S. [address] [place] [address] 08/13/2025 11:30 AM CDT [facility] in [place], [place] [address] [place] [address] Jessica Rousseau M.B.B.S. [address] [place] [address] documented as of this encounter Results * [...] hepatic steatosis. Jessica Avila APRN, C.N.P., M.S.N. [facility] CT PROC EDURES Final Result documented in this encounter Visit Diagnoses Diagnosis Transplant Stem Cell (HCC)- Primary Transplant Stem Cell (HCC) documented in this encounter Additional Health Concerns Infection Onset Date Last Indicated Resolved Time Protective Environment 03/02/2023 03/02/2023 Assessment Noted Time PHQ-9 Depression Total Score: 2 12/10/19 25 2:46 PM MANAGER SITE documented as of this encounter Care Teams Consulting Nurse Relationship Specialty Start Date End Date Renzo Andres M.D. [address] [place] [phone] PCP - General Family Medicine 04/25/23 documented as of this encounter
--- OUTSIDE RECORDS SUMMARY | 2025-06-05 08:36 | XMS_ITS | Encounter Summary ---
Author Organization [facility] Address [address] [place] [address] Care Team Providers Care Human Geography Instructor Name Role Phone Renzo Andres M.D. Primary Care Provider [phone] Reason for Referral * MRI/CAT/PET Scan (Routine) - Closed Specialty Diagnoses / Procedures Referred By Viviac t Referred To Contact Radiology Diagnoses Transplant Stem Cell (HCC) Procedures CT Chest Angiogram and Pulmonary Arteries with IV Contrast CT Chest with IV Contrast Jessica Avila APRN C.N.P., M.S.N. [address] [place] [address] Phone: tel: fax: [facility] Region Referral ID Status Reason Start Date Expiration Date Visits Re quested Visits Authorized [id number] Closed 06/03/2025 09/03/2026 1 1 Reason for Visit * MRI/CAT/PET Scan (Routine) - Closed Specialty Diagnoses / Procedures Referred By Contac t Referred To Contact Radiology Diagnoses Transplant Stem Cell (HCC) Procedures CT Chest Angiogram and Pulmonary Arteries with IV Contrast CT Chest with IV Contrast Jessica Avila APRN, C.N.P., M.S.N. [address] [place] [address] Phone: tel: fax: [facility] Region Referral ID Status Reason Start Date Expiration Date Visits Re quested Visits Authorized [id number] Closed 06/03/2025 09/03/2026 1 1 Encounter Details Date Type Department Care Team (Latest Contact Info) Description 06/05/2025 8:36 AM CDT - 06/05/2025 11:59 PM CDT Hospital Encounter Department of Radiology in [address] [phone] Jessica Avila APRN, C.N.P., M.S.N. [address] [place] [address] Transplant Stem Cell (HCC) Discharge Disposition: Home or Self Care Social History Tobacco Use Types Packs/Day Years Used Date Smoking Tobacco: Never Smokeless Tobacco: Never Alcohol Use Standard Drinks/Week Comments Yes 0 (1 standard drink = 0.6 oz pur e alcohol) social [facility] Utilities Answer Date Recorded In the past 12 months has e [employer], gas, oil, or water [employer] threatened to shut off services in your [...] a [facility] place to live 05/28/2025 Education Answer Date Recorded What is the highest level of school you have completed or the highest degree you have received? Some college, no degree 04/24/2019 Comments No Sex and Gender Information Value Date Recorded Sex Assigned at Female 12/26/2018 8:37 PM BULB PLANTER Legal Sex Female 2:43 PM BULB PLANTER Gender Identity Female 12/26/2018 8:37 PM BULB PLANTER Sexual Orientation Choose not to disclose 2020 [...] CDT Telemedicine Department of Palliative Care in [place], [place] [address] [place] [phone] Yary Landa D.O. [address] [place] [phone] 07/15/2025 9:00 AM CDT Telemedicine [facility] in [place], [place] [address] [place] [phone] Jessica Rousseau M.B.B.S. [address] [place] [phone] 08/11/2025 9:00 AM CDT Nurse Only Section of Infectious Diseases in [place], [place] [address] [place] [phone] Jessica Rousseau M.B.B.S. [address] [place] [phone] 08/11/2025 10:20 AM CDT Comprehensive Visit Division of Gastroenterology in [place], [place] [address] [place] [phone] Jessica Rousseau M.B.B.S. [address] [place] [phone] 08/11/2025 1:00 PM CDT Clinical Support Department of Palliative Care in [place], [place] [address] [place] [address] Uma Aly APRN, C.N.P., M.S.N. [address] [place] [address] 08/13/2025 10:00 AM CDT Lab Department of Laboratory Medicine and Pathology, [facility], in [place], [place] [address] [place] [address] Jessica Rousseau M.B.B.S. [address] [place] [phone] 08/13/2025 10:30 AM CDT [facility] in [place], [place] [address] [place] [address] Jessica Rousseau M.B.B.S. [address] [place] [phone] 08/13/2025 11:00 AM CDT Nurse Only Pedro Lanza laura [facility] in [place], [place] [address] [place] [address] Jessica Rousseau M.B.B.S. [address] [place] [phone] 08/13/2025 11:30 AM CDT [facility] in [place], [place] [address] [place] [address] Jessica Rousseau M.B.B.S. [address] [place] [phone] documented as of this encounter Procedures Procedure [...] steatosis. Procedure Note Geo Boothe M.D. - 07/18/2025 EXAM: CT CHEST ANGIOGRAM AND PULMONARY ARTERIES [...] Total Score: 2 12/10/19 25 2:46 PM BULB PLANTER documented as of this encounter Care Teams Human Geography Instructor Relationship Specialty Start Date End Date Renzo Andres M.D. [address] [place], [place] [address] [address] PCP - General Family Medicine 04/25/23 documented as of this encounter
--- OUTSIDE RECORDS SUMMARY | 2025-06-07 11:45 | XMS_ITS | Encounter Summary ---
Author Organization [facility] Address [address] [place] [address] Care Team Providers Care Ortho/Prosthetic Aide Name Role Phone Renzo Andres M.D. Primary Care Provider [phone] Reason for Referral * Outpatient (Routine) - Closed Specialty Diagnoses / Procedures Referred By Estefania t Referred To Contact Diagnoses Transplant Stem Cell (HCC) Pain Pleuritic Chest Procedures ECG 12 Lead MI EKG 12 LEAD W I&R Analia Carter APRN, C.N.P. [address] [place] [address] Phone: tel: fax: [facility] Referral ID Status Reason Start Date Expiration Date Visits Re quested Visits Authorized [id number] Closed 06/06/2025 09/06/2026 1 1 * Specialty Diagnoses / Procedures Referred By Contac t Referred To Contact RST [facility] [address] [place] [address] Phone: tel: [facility] Referral ID Status Reason Start Date Expiration Date Visits Re quested Visits Authorized Scheduling Instructions Please schedule on 06/07 at noon BW,Exam Reason for Visit * Outpatient (Routine) - Closed Specialty Diagnoses / Procedures Referred By Estefania acosta Referred To Contact Diagnoses Transplant Stem Cell (HCC) Pain Pleuritic Chest Procedures ECG 12 Lead MI EKG 12 LEAD W I&R Analia Carter APRN, C.N.P. [address] [place] [address] Phone: tel: fax: [facility] Referral ID Status Reason Start Date Expiration Date Visits Re quested Visits Authorized [id number] Closed 06/06/2025 09/06/2026 1 1 Encounter Details Date Type Department Care Team (Latest Contact Info) Description 06/07/2025 11:45 AM CDT - 06/07/2025 11:59 PM CDT Hospital Encounter [facility], Ninth Floor [address] [place] [phone] Analia Carter APRN, C.N.P. 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 [facility] to live 05/28/2025 Education Answer Date Recorded What is the highest level of school you have completed or the highest degree you have received? Some college, no degree 04/24/2019 Comments No Sex and Gender Information Value Date Recorded Sex Assigned at Female 12/26/2018 8:37 PM NOCTURNIST Legal Sex Female 2:43 PM NOCTURNIST Gender Identity Female 12/26/2018 8:37 PM NOCTURNIST Sexual Orientation Choose not to disclose 2020 [...] SUBJECTIVE TRANSPLANT PHYSICIAN Dr. Jessica Rousseau, pager [phone]. HISTORY OF PRESENT ILLNESS Alexia Adore Martinez is a 35 y.o. female with a past medical history significant for CML who received a MUD HCT on 12/10/24. She is at [facility] today for the follow up. Day + 175 HISTORY OF PRESENT ILLNESS Please refer to multiple prior notes in EMR for complete hematologic history: Ms. Martinez is a 35 y.o. 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 At the time of diagnosis, there was grade 3 reticulin fibrosis noted. The cytogenetics identified a [place] chromosome in 20 metaphases. The BCR-ABL1 P [...] t(9;22) metaphases. 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 06/17/2024: feeling quite symptomatic since the [...] Access Camargo CVC placed on 12/03/24 by [facility]. Social Work Seen and cleared [...] prophylaxis: Ursodiol 600 mg two times daily. [employer] ID Number: [id number] [...] in discomfort across her sternum Differential - [place] ruled out with cardiac work up in [...] donor DNA and approximately 40% recipient DNA. [id number]% donor DNA and approximately 0% recipient DNA. [...] right eye. Wears glasses. - Followed by [facility] in [place], [place]. - Patient will notify team if any vision changes. # Blood Products # TACO - Requires infusion of platelets at a slower rate # Disposition - Echocardiogram First available -06/10/25 IFD appointment for immunizations -06/15/25 Bone marrow biopsy - 06/25/25 appointments on [place] [address] documented in this encounter Plan of Treatment Upcoming Encounters Date Type Department Care Team (Latest Contact Info) Description 07/03/2025 8:00 AM CDT Telemedicine Department of Palliative Care in [place], [place] [address] [place] [phone] Yary Landa D.O. [address] [place] [phone] 07/15/2025 9:00 AM CDT Telemedicine Pedro [facility] in [place], [place] [address] [place] [address] Jessica Rousseau M.B.B.S. [address] [place] [phone] 08/11/2025 9:00 AM CDT Nurse Only Section of Infectious Diseases in [place], [place] [address] [place] [address] Jessica Rousseau M.B.B.S. [address] [place] [phone] 08/11/2025 10:20 AM CDT Comprehensive Visit Division of Gastroenterology in [place], [place] [address] [place] [address] Jessica Rousseau M.B.B.S. [address] [place] [phone] 08/11/2025 1:00 PM CDT Clinical Support Department of Palliative Care in [place], [place] [address] [place] [address] Uma Aly APRN, C.N.P., M.S.N. [address] [place] [phone] 08/13/2025 10:00 AM CDT Lab Department of Laboratory Medicine and Pathology, [facility], in [place], [place] [address] [place] [address] Jessica Rousseau M.B.B.S. [address] [place] [phone] 08/13/2025 10:30 AM CDT [facility] in [place], [place] [address] [place] [address] Jessica Rousseau M.B.B.S. [address] [place] [address] 08/13/2025 11:00 AM CDT Nurse Only Pedro sanchez [facility] Transplantation and Clinical Regeneration in [place], [place] [address] [place] [address] Jessica Rousseau M.B.B.S. [address] [place] [phone] 08/13/2025 11:30 AM CDT [facility] in [place], [place] [address] [place] [address] Jessica Rousseau M.B.B.S. [address] [place] [phone] Scheduled Referrals Name Type Priority Associated Diagnoses [...] CDT) Ventricular Rate ECG/Min 86 BPM MUSE MI Interval 172 ms MUSE QRSD Interval 78 ms MUSE QT Interval 350 ms MUSE QTC Interval 418 ms MUSE P [place] 55 degrees MUSE R [place] 11 degrees MUSE T Wave [place] 38 degrees MUSE 06/07/2025 12:1 5 PM [...] 12:12 PM CDT 06/07/2025 12:19 PM CDT us Analia Gamez APRN, Satnam.N.P. LAB BLOOD ADD-ON Final Result Performing Organization Address City/[facility]/ZIP Co de Phone Number [facility] [address] [place] [address], [facility] 200 [place] [address] * NT-Pro B-Type Natriuretic Peptide (BNP) (06/07/2025 [...] 12:12 PM CDT 06/07/2025 12:19 PM CDT Result Olu Gamez APRN, C.N.P. LAB BLOOD ADD-ON Final Result Performing Organization Address City/[facility]/ZIP Co de Phone Number [facility] [address] [place] [address], [facility] [address] [place] [address] * Troponin T, 5th Generation (06/07/2025 12:12 PM CDT) Troponin T, 5th gen <6 <=10 ng/L 06/07/2025 1:04 PM CDT DTL Blood (Blood, Venous) 06/07/2025 12:12 PM CDT 06/07/2025 12:19 PM CDT us Analia Gamez APRN, C.N.P. LAB BLOOD ADD-ON Final Result Performing Organization Address City/[facility] [place] [address] * Magnesium (06/07/2025 12:12 PM CDT) Pathologist [facility] Magnesium, S 2.2 1.7 - 2.3 mg/dL 06/07/2025 2:36 PM CDT DTL Blood (Blood, Venous) 06/07/2025 12:12 PM CDT 06/07/2025 12:19 PM CDT Analia Gamez APRN, C.N.P. LAB BLOOD ADD-ON Final Result Performing Organization Address [facility] [place] [address] * (ABNORMAL) Comprehensive Metabolic Panel (06/07/2025 12:12 PM CDT) Pathologist [facility] Potassium, S 4.3 3.6 - 5.2 mmol/L [...] APRN, C.N.P. LAB BLOOD ADD-ON Final Result [facility] [address] [place], [place] [address] [address] [place] [address] * (ABNORMAL) CBC no call back, reflex [...] C.N.P. LAB BLOOD NON ADD-ON Final Result [facility] [address] [place] [address], [facility] DTL [facility] [address] [place] [address] DHPM [facility] [address] [place] [address] documented in this encounter Visit Diagnoses Diagnosis [...] Depression Total Score: 2 12/10/19 2:46 PM NOCTURNIST documented as of this encounter Care Teams Ortho/Prosthetic Aide Relationship Specialty Start Date End Date Renzo Andres M.D. [address] [place] [phone] PCP - General Family Medicine 04/25/23 documented as of this encounter
--- OUTSIDE RECORDS SUMMARY | 2025-06-08 13:15 | XMS_ITS | Encounter Summary ---
Author Organization [facility] Address [address] [place] [phone] Care Team Providers Care Welder/Installer Name Role Phone Renzo Andres M.D. Primary Care Provider Reason for Visit * Outpatient (Routine) - Closed Specialty Diagnoses / Procedures Referred By Estefania acosta Referred To Contact Infectious Diseases Diagnoses 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) Transplant Stem Cell (HCC) Procedures Infectious Diseases - BMT econsult Arlen James APRN, C.N.P., D.N.P. [address] [place] [phone] Phone: tel: fax: [facility] Referral ID Status Reason Start Date Expiration Date Visits Re quested Visits Authorized [id number] Closed 06/05/2025 09/05/2026 1 1 Encounter Details Date Type Department Care Team (Late st Contact Info) Description 06/08/2025 1:15 PM CDT Internal E-Consult Section of Infectious Diseases in [place], [place] [address] [place] [phone] Arlen James APRN, C.N.P., D.N.P. [address] [place] [phone] Vanessa Segura P.A.-C. [address] [place] [phone] 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); Transplant Stem Cell (HCC) Social History Tobacco Use Types Packs/Day Years Used Date Smoking Tobacco: Never Smokeless Tobacco: Never Alcohol Use Standard Drinks/Week Comments Yes 0 (1 standard drink = 0.6 oz pur e alcohol) social [facility] Utilities Answer Date Recorded In the [...] Sex Assigned at Female 12/26/2018 8:37 PM RESEARCH AND DEVELOPMENT SCIENTIST Legal Sex Female 2:43 PM RESEARCH AND DEVELOPMENT SCIENTIST Gender Identity Female 12/26/2018 8:37 PM RESEARCH AND DEVELOPMENT SCIENTIST Sexual Orientation Choose not to disclose 2020 [...] transplant 12/10/2024. Tacrolimus for GVHD prophylaxis was [id number]/30/2025. She was recently started on budesonide and [...] CDT Telemedicine Department of Palliative Care in [place], [place] [address] [place] [phone] Yary Landa D.O. [address] [place] [phone] 07/15/2025 9:00 AM CDT Telemedicine [facility] in [place], [place] [address] [place] [phone] Jessica Rousseau M.B.B.S. [address] [place] [phone] 08/11/2025 9:00 AM CDT Nurse Only Section of Infectious Diseases in [place], [place] [address] [place] [address] Jessica Rousseau M.B.B.S. [address] [place] [phone] 08/11/2025 10:20 AM CDT Comprehensive Visit Division of Gastroenterology in [place], [place] [address] [place] [phone] Jessica Rousseau M.B.B.S. [address] [place] [phone] 08/11/2025 1:00 PM CDT Clinical Support Department of Palliative Care in [place], [place] [address] [place] [phone] Uma Aly APRN, C.N.P., M.S.N. [address] [place] [phone] 08/13/2025 10:00 AM CDT Lab Department of Laboratory Medicine and Pathology, [facility], in [place], [place] [address] [place] [address] Jessica Rousseau M.B.B.S. [address] [place] [phone] 08/13/2025 10:30 AM CDT [facility] in [place], [place] [address] [place] [address] Jessica Rousseau M.B.B.S. [address] [place] [phone] 08/13/2025 11:00 AM CDT Nurse Only [facility] in [place], [place] [address] [place] [address] Jessica Rousseau M.B.B.S. [address] [place] [address] 08/13/2025 11:30 AM CDT Office Visit Pedro Lanza laura [facility] Transplantation and Clinical Regeneration in [place], [place] [address] [place] [address] Jessica Rousseau M.B.B.S. [address] [place] [phone] documented as of this encounter Visit Diagnoses Diagnosis 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) Transplant Stem Cell (HCC) documented in this encounter Additional Health Concerns Infection Onset Date Last Indicated Resolved Time Protective Environment 03/02/2023 03/02/2023 Assessment Noted Time PHQ-9 Depression Total Score: 2 12/10/19 25 2:46 PM RESEARCH AND DEVELOPMENT SCIENTIST documented as of this encounter Care Teams Welder/Installer Relationship Specialty Start Date End Date Renzo Andres M.D. [address] [place] [phone] PCP - General Family Medicine 04/25/23 documented as of this encounter
--- OUTSIDE RECORDS SUMMARY | 2025-06-10 12:45 | XMS_ITS | Encounter Summary ---
Author Organization [facility] Address [address] [place] [address] Care Team Providers Care Consulting Practice Director Name Role Phone Renzo Andres M.D. Primary Care Provider Encounter Details Date Type Department Care Team (Late st Contact Info) Description 06/10/2025 12:45 PM CDT Patient [facility] in [place], [place] [address] [place] [address] Ta Medrano Social History Tobacco Use Types Packs/Day Years Used Date Smoking Tobacco: Never Smokeless Tobacco: Never Alcohol Use Standard Drinks/Week Comments Yes 0 (1 standard drink = 0.6 oz pur e alcohol) social C Utilities Answer Date Recorded In the past 12 months has e [employer], gas, oil, or water [employer] threatened to shut off services in your [...] Sex Assigned at Female 12/26/2018 8:37 PM BARIATRIC PROGRAM COORDINATOR Legal Sex Female 2:43 PM BARIATRIC PROGRAM COORDINATOR Gender Identity Female 12/26/2018 8:37 PM BARIATRIC PROGRAM COORDINATOR Sexual Orientation Choose not to disclose [...] the patient navigation team with any questions. [facility] [phone]. documented in this encounter Plan of Treatment Upcoming Encounters Date Type Department Care Team (Latest Contact Info) Description 07/03/2025 8:00 AM CDT Telemedicine Department of Palliative Care in [place], [place] [address] [place] [phone] Yary Landa D.O. [address] [place] [phone] 07/15/2025 9:00 AM CDT Telemedicine [facility] for Transplantation and Clinical Regeneration in [place], [place] [address] [place] [phone] Jessica Rousseau M.B.B.S. [address] [place] [phone] 08/11/2025 9:00 AM CDT Nurse Only Section of Infectious Diseases in [place], [place] [address] [place] [phone] Jessica Rousseau M.B.B.S. [address] [place] [phone] 08/11/2025 10:20 AM CDT Comprehensive Visit Division of Gastroenterology in [place], [place] [address] [place] [phone] Jessica Rousseau M.B.B.S. [address] [place] [phone] 08/11/2025 1:00 PM CDT Clinical Support Department of Palliative Care in [place], [place] [address] [place] [phone] Uma Aly APRN, C.N.P., M.S.N. [address] [place] [phone] 08/13/2025 10:00 AM CDT Lab Department of Laboratory Medicine and Pathology, [facility], in [place], [place] [address] [place] [address] [place] [phone] Jessica Rousseau M.B.B.S. [address] [place] [phone] 08/13/2025 10:30 AM CDT Office Visit [facility] Transplantation and Clinical Regeneration in [place], [place] [address] [place] [address] Jessica Rousseau M.B.B.S. [address] [place] [phone] 08/13/2025 11:00 AM CDT Nurse Only [facility] Transplantation and Clinical Regeneration in [place], [place] [address] [place] [address] Jessica Rousseau M.B.B.S. [address] [place] [phone] 08/13/2025 11:30 AM CDT Office Visit [facility] Transplantation and Clinical Regeneration in [place], [place] [address] [place] [address] Jessica Rousseau M.B.B.S. [address] [place] [phone] documented as of this encounter Visit Diagnoses Not on filedocumented in this encounter Additional Health Concerns Infection Onset Date Last Indicated Resolved Time Protective Environment 03/02/2023 03/02/2023 Assessment Noted Time PHQ-9 Depression Total Score: 2 12/10/19 25 2:46 PM BARIATRIC PROGRAM COORDINATOR documented as of this encounter Care Teams Consulting Practice Director Relationship Specialty Start Date End Date Renzo Andres M.D. [address] [place] [phone] PCP - General Family Medicine 04/25/23 documented as of this encounter
--- OUTSIDE RECORDS SUMMARY | 2025-06-10 13:20 | XMS_ITS | Encounter Summary ---
Author Organization [facility] Address [address] [place] [address] Care Team Providers Care Hardware Engineering Manager Name Role Phone Renzo Andres M.D. Primary Care Provider [phone] Reason for Visit * Reason Comments Immunizations Encounter Details Date Type Department Care Team (Late st Contact Info) Description 06/10/2025 1:20 PM CDT Nurse Only Section of Infectious Diseases in [place], [place] [address] [place] [phone] Jessica Rousseau M.B.B.S. [address] [place] [phone] Carolyn Gardner RKatalinaNKatalina [address] [place] [phone] Immunizations Social History Tobacco Use Types Packs/Day [...] Sex Assigned at Female 12/26/2018 8:37 PM CLIENT SERVER PROGRAMMER Legal Sex Female 2:43 PM CLIENT SERVER PROGRAMMER Gender Identity Female 12/26/2018 8:37 PM CLIENT SERVER PROGRAMMER Sexual Orientation Choose not to disclose 2020 [...] CDT Telemedicine Department of Palliative Care in [place], [place] [address] [place] [phone] Yary Landa D.O. [address] [place] [phone] 07/15/2025 9:00 AM CDT Telemedicine Pedro Aravind [facility] for Transplantation and Clinical Regeneration in [place], [place] [address] [place] [phone] Jessica Rousseau M.B.B.S. [address] [place] [phone] 08/11/2025 9:00 AM CDT Nurse Only Section of Infectious Diseases in [place], [place] [address] [place] [address] [phone] Jessica Rousseau M.B.B.S. [address] [place] [phone] 08/11/2025 10:20 AM CDT Comprehensive Visit Division of Gastroenterology in [place], [place] [address] [place] [address] Jessica Rousseau M.B.B.S. [address] [place] [phone] 08/11/2025 1:00 PM CDT Clinical Support Department of Palliative Care in [place], [place] [address] [place] [phone] Uma Aly APRN, C.N.P., M.S.N. [address] [place] [phone] 08/13/2025 10:00 AM CDT Lab Department of Laboratory Medicine and Pathology, [facility] in [place], [place] [address] [place] [phone] Jessica Rousseau M.B.B.S. [address] [place] [phone] 08/13/2025 10:30 AM CDT [facility] in [place], [place] [address] [place] [phone] Jessica Rousseau M.B.B.S. [address] [place] [phone] 08/13/2025 11:00 AM CDT Nurse Only [facility] in [place], [place] [address] [place] [address] Jessica Rousseau M.B.B.S. [address] [place] [phone] 08/13/2025 11:30 AM CDT [facility] in [place], [place] [address] [place] [address] Jessica Rousseau M.B.BKatalinaS. [address] [place] [address] documented as of this encounter Visit Diagnoses Diagnosis Need Vaccine Immunization- Primary documented in this encounter Additional Health Concerns Infection Onset Date Last Indicated Resolved Time Protective Environment 03/02/2023 03/02/2023 Assessment Noted Time PHQ-9 Depression Total Score: 2 12/10/19 25 2:46 PM CLIENT SERVER PROGRAMMER documented as of this encounter Care Teams Hardware Engineering Manager Relationship Specialty Start Date End Date Renzo Andres M.D. [address] [place] [address] [phone] PCP - General Family Medicine 04/25/23 documented as of this encounter
--- OUTSIDE RECORDS SUMMARY | 2025-06-12 16:28 | XMS_ITS | Encounter Summary ---
Author Organization [facility] Address [address] [place] [id number] Care Team Providers Care Family And Divorce Legal Assistant Name Role Phone Renzo Andres M.D. Primary Care Provider Encounter Details Date Type Department Care Team (Latest Contact Info) Description 06/12/2025 4:28 PM CDT - 06/13/2025 5:22 PM CDT Hospital Encounter [facility], Tenth Floor [address] [place] [address] Mallory Sharif M.D. [address] [place] [phone] Carlos Lawton M.D. [address] [place] [phone] Discharge Disposition: Home or Self Care Social [...] things needed for daily living? No 06/12/2025 [facility] Utilities Answer Date Recorded In the past 12 months has th e electric, gas, oil, or water company threatened to shut off services in your home? No 06/12/2025 Depression Answer Date Recor ded PHQ-9 Total Score (max 27) 2 12/10 Housing Stability Answer Date Recorded What is your living situation today? I have a [facility] place to live 06/12/2025 Education Answer Date Recorded What is the highest level of school you have completed or the highest degree you have received? Some college, no degree 04/24/2019 Comments No Sex and Gender Information Value Date Recorded Sex Assigned at Female 12/26/2018 8:37 PM EMBROIDERY SPECIALIST Legal Sex Female 2:43 PM EMBROIDERY SPECIALIST Gender Identity Female 12/26/2018 8:37 PM EMBROIDERY SPECIALIST Sexual Orientation Choose not to disclose [...] this encounter Discharge Summaries * Analia Carter, SKIDDER LOADER, C.N.P. - 06/13/2025 2:42 PM CDT DISCHARGE SUMMARY BRIEF OVERVIEW Hospital: [facility] Discharge Provider: Mallory Sharif M.D. Primary Team: [facility] Primary Care Providers: Renzo Andres M.D. (General) [address] [place] [phone] Primary Care Provider Primary Care Provider Other [...] [facility] Laboratory Medicine 06/15/2025 9:45 AM ROOM [place] [address] MS 705 Procedural 06/15/2025 2:00 PM TXP BMT [...] through Care Everywhere. * Acetaminophen (By mouth) (Bruneian) * Diphenhydramine (By mouth) (Bruneian) * Laxative, Stool Softeners (By mouth) (Bruneian) * Ibuprofen (By mouth) (Bruneian) * Laxative, Stimulant (By mouth) (Bruneian) documented in this encounter Medications at Time [...] by mouth daily. 120 capsule 5 04/29/2025 ibuprofen 400 mg tablet Take 1 [...] total) by mouth daily. 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 60 tablet 1 05/13/2025 acetaminophen (TylenoL) 325 mg tablet Take 2 tablets (650 mg total) by mouth every 4 (four) hours as needed for mild pain or score 1-3 of 10. 06/13/2025 06/30/20 25 alum-mag hydroxide-simeth (Maalox) 200-200-20 mg/5 mL suspension Take 30 mL by mouth every 4 (four) hours as needed for indigestion (dyspepsia). 06/13/2025 06/30/20 25 buprenorphine (Butrans) 5 mcg/hourIndications :Chronic Pain/Nonacute [...] needed for nausea. 30 tablet 1 05/20/2025 07/01/20 25 sennosides-docusate sodium (Senokot-S) 8.6-50 mg per tablet Take 1 tablet by mouth 2 (two) times a day as needed for constipation. 06/13/2025 06/23/20 25 documented as of this encounter Progress Notes * Analia Carter, SKIDDER LOADER, C.N.P. - 06/13/2025 7:17 AM CDT SUBJECTIVE [...] donor DNA and approximately 40% recipient DNA. [id number]% donor DNA and approximately 0% recipient DNA. [...] had just started 40 mg daily today 08784) - monitor if chest pressure improves (this may also help the slight increase in ALT). 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 Wears glasses. - Followed by [facility] in [place], [place]. - Patient will notify team if [...] SUBJECTIVE TRANSPLANT PHYSICIAN Dr. Jessica Rousseau, pager [phone]. CHIEF COMPLAINT Radha Martinez is a 35 [...] reticulin fibrosis noted. 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 The BCR- ABL1 [...] t(9;22) metaphases. 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 06/17/2024: feeling quite symptomatic since the [...] mg two times daily. [facility] ID Number: [id number] [...] output data in the 24 hours ending 06/12/251917 VITAL SIGNS Vitals: 06/12/25 1654 06/12/25 1655 [...] donor DNA and approximately 40% recipient DNA. [id number]% donor DNA and approximately 0% recipient DNA. [...] had just started 40 mg daily today 57816) - monitor if chest pressure improves (this may also help the slight increase in ALT). 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 Wears glasses. - Followed by [facility] in [place], [place]. - Patient will notify team if [...] [place]; Surgeon: Brianna Hernandez M.D., Ph.D.; Location: [facility] OR documented in this encounter Consult Notes * Therese Bass RDN, LD - 06/13/2025 3:09 PM CDTAssociated Order(s): Dietitian Consult (Hospital) Dietitian Consult (Hospital) Referring Provider: Jh Hernandez Clinical Nutrition: Initial Assessment Clinical Nutrition was [...] 101 kg (06/12/2025) Current Weight: 101 kg [place] Body Weight (Calculated) : 63.9 kg BMI [...] Accumulation: Absent Estimated Needs: Total Calorie Needs: 4461-7709 calories/day Method to Estimate Energy Needs: [place]-St Jeor ( kcal/kg) Weight Used for Equation [...] about patient's nutritional care please contact pager [phone] on weekdays 07:30-16:00 or [phone] on weekends/holidays ([facility] [place]) [phone]. [1] Past Medical History: Diagnosis Date Amblyopia Bilateral Anemia Anxiety Generalized Disorder Depressive Disorder Fibromyalgia 2020 Headache Unspecified Irritable Bowel Syndrome, Unspecified 2016 Leukemia Migraine Headache Other Injury Of Unspecified Body Region Strabismus [2] Past Surgical History: Procedure Laterality Date EYE SURGERY Right 1989 INSERTION CENTRAL VENOUS LINE N/A 12/03/2024 Procedure: INSERTION CENTRAL VENOUS LINE, [place]; Surgeon: Brianna Hernandez M.D., Ph.D.; Location: [facility] [3] Allergies Allergen Reactions Oxycodone GI intolerance Severe nausea Bupropion Edema (Reselect Reaction) Grapefruit Other (see comments) Drug-drug interaction with Bosulif (bosutinib); This had also been noted w/ prior therapy which patient is no longer taking (Tasigna (nilotinib)). [4] Current Facility-Administered Medications: acetaminophen tablet 650 mg (TylenoL), 650 mg, oral, Q4H PRN, Alok Russ, KARON, C.N.P., D.N.P. acyclovir tablet 400 mg (Zovirax), [...] CDT Telemedicine Department of Palliative Care in [place], [place] [address] [place] [phone] Yary Landa D.O. [address] [place] [phone] 07/15/2025 9:00 AM CDT Telemedicine [facility] in [place], [place] [address] [place] [phone] Jessica Rousseau M.B.B.S. [address] [place] [phone] 08/11/2025 9:00 AM CDT Nurse Only Section of Infectious Diseases in [place], [place] [address] [place] [phone] Jessica Rousseau M.B.B.S. [address] [place] [phone] 08/11/2025 10:20 AM CDT Comprehensive Visit Division of Gastroenterology in [place], [place] [address] [place] [phone] Jessica Rousseau M.B.B.S. [address] [place] [phone] 08/11/2025 1:00 PM CDT Clinical Support Department of Palliative Care in [place], [place] [address] [place] [phone] Uma Aly APRN, C.N.P., M.S.N. [address] [place] [phone] 08/13/2025 10:00 AM CDT Lab Department of Laboratory Medicine and Pathology, [facility], in [place], [place] [address] [place] [phone] Jessica Rousseau M.B.B.S. [address] [place] [phone] 08/13/2025 10:30 AM CDT [facility] [place], [place] [address] [place] [phone] Jessica Rousseau M.B.B.S. [address] [place] [phone] 08/13/2025 11:00 AM CDT Nurse Only Pedro [facility]zaKatalina laura [facility] [place], [place] [address] [place] [phone] Jessica Rousseau M.B.B.S. [address] [place] [phone] 08/13/2025 11:30 AM CDT Office Visit Pedro LanzaKatalina laura [facility] in [place], [place] [address] [place] [phone] Jessica Rousseau M.B.B.S. [address] [place] [phone] documented as of this encounter Procedures Procedure [...] D.N.P. LAB BLOO D [place] [address], [facility] [place] [address] [place] [address] * (ABNORMAL) CBC with Differential, Blood (06/13/2025 [...] AM CDT 06/13/2025 9:34 AM CDT Alok Russ APRN, C.N.P., D.N.P. LAB BLOO D ADD-ON Final Result [facility] [address] [place] [address], [facility] DTL [facility] [address] [place] [address] [facility] [address] [place] [address] * CT Abdomen Pelvis with IV Contrast [...] Moderate colonic stoolburden. Renita Potts APRN, C.N.P., Heaven.N.P. [facility] [place] PROC EDURES Final Result * Comprehensive Metabolic Panel (06/12/2025 5:37 PM CDT) [facility] Potassium, S 5.0 3.6 - 5.2 mmol/L [...] D.N.P. LAB BLOO D ADD-ON Final Result [facility] [address] [place] [address], [facility] [place] [address] [place] [address] * (ABNORMAL) CBC no call back, reflex [...] LAB BLOO D NON ADD-ON Final Result [facility] [address] [place] [address], [facility] DTL [facility] [address] [place] [address] DHPM [facility] [address] [place] [address] documented in this encounter Visit Diagnoses Diagnosis [...] 2100 2008 (Given - Provider: Raymond Perez RFritz) pantoprazole DR tablet 40 mg (Protonix) 40 [...] Daily, First dose on 06/13/25 at 0900 0911 (Given - Provid er: [...] (Given - Provid er: Ariadna Schumacher R.N.) PRN Medication Order 06/11/2025 06/12/2025 06/13/2025 [...] 0649 (Given - Provid er: Marko Shine R.N.) HYDROmorphone (PF) injection 0.2 mg (Dilaudid) 0.2 mg, intravenous, Every 4 hours PRN, Breakthrough pain between PO doses, Starting on Sun06/12/25 at 2347 0002 (Given - Provid er: Marko Shine R.N.) HYDROmorphone tablet 1 mg (Dilaudid) 1 [...] Total Score: 2 12/10/19 25 2:46 PM EMBROIDERY SPECIALIST documented as of this encounter Care Teams Family And Divorce Legal Assistant Relationship Specialty Start Date End Date Renzo Andres M.D. [address] [place] [phone] PCP - General Family Medicine 04/25/23 documented as of this encounter
--- OUTSIDE RECORDS SUMMARY | 2025-06-15 09:13 | XMS_ITS | Encounter Summary ---
Author Organization [facility] Address [address] [place] [address] Care Team Providers Care Angle Furnaceman Name Role Phone Renzo Andres M.D. Primary [...] Examination Following Bone Marrow Transplant Corticosteroid Treatment Moisture Meter Operator Systemic Procedures Biopsy Bone Marrow, Sedated FL DX BONE MARROW BX & ASPIR Jessica Rousseau M.B.B.S. 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 [address] [place] [address] Phone: tel: fax: [facility] Referral ID Status Reason Start Date Expiration Date Visits Re quested Visits Authorized [id number] Closed 03/25/2025 06/25/2026 1 1 Encounter Details Date Type Department Care Team (Latest Contact Info) Description 06/15/2025 9:13 AM CDT - 06/15/2025 11:59 PM CDT Hospital Encounter Outpatient Procedure Center in [place], [place] [address] [place] [address] Jessica Rousseau M.B.B.S. 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 No 06/12/2025 [facility] Utilities Answer Date Recorded In the past 12 months has th e electric, gas, oil, or water company threatened to shut off services in your home? No 06/12/2025 Depression Answer Date Recor ded PHQ-9 Total Score (max 27) 2 12/10 Housing Stability Answer Date Recorded What is your living situation today? I have a [facility] place to live 06/12/2025 Education Answer Date Recorded What is the highest level of school you have completed or the highest degree you have received? Some college, no degree 04/24/2019 Comments No Sex and Gender Information Value Date Recorded Sex Assigned at Female 12/26/2018 8:37 PM PRINCIPAL SYSTEM SOFTWARE ENGINEER Legal Sex Female 2:43 PM PRINCIPAL SYSTEM SOFTWARE ENGINEER Gender Identity Female 12/26/2018 8:37 PM PRINCIPAL SYSTEM SOFTWARE ENGINEER Sexual Orientation Choose not to disclose 2020 3:46 PM CDT documented as of this encounter Last Filed Vital Signs Vital Sign Reading Time Taken Comments Blood Pressure 135/95 06/15/2025 10:15 AM CDT Pulse 79 06/15/2025 10:20 AM CDT Temperature 37.7 C (99.9 F) 06/15/2025 9:33 AM CDT Respiratory Rate 13 06/15/2025 10:20 AM CDT Oxygen Saturation 96% 06/15/2025 10:20 AM CDT Inhaled Oxygen Concentration - - Weight - - Height - - Body Mass Index - - documented in this encounter Discharge Instructions * Discharge Instructions* Chelsy Piper R.N. - 06/15/2025 9:18 AM CDT Contact Information If you have immediate or urgent concerns, please call [phone] between the hours of 7 am and 11pm. If you have concerns outside of these hours, call the [facility] Voice Systems Engineer at [phone] and ask to speak to the Student Ministries Director on-call. * Attachments The following attachments cannot be sent through Care Everywhere. * Bone Marrow Examination documented in this encounter Medications at Time [...] 06/23/20 25 documented as of this encounter Procedure Notes * Kevin Villa R.N. 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 Authorized by: Jessica Rousseau M.BKatalinaB.S. Care team members present 1. Kevin Villa R.N. 2. Jeanna Seay PROCEDURE DETAILS Procedure: Bone Marrow biopsy and Bone Marrow aspiration Bone marrow biopsy Laterality: Left Location of biopsy: Posterior iliac crest Patient position: Side lying Type of Needle: Manual bone marrow biopsy needle Findings: Aspirate obtained with spicules noted, redirected for core biopsy, fluid obtained and slides obtained Bone marrow aspiration Aspirate volume (mL): 18 CONSENT Consent obtained: written (Risks, benefits and alternatives were discussed and a written Informed Consent was obtained. Please see Informed Consent form for further details.) UNIVERSAL PROTOCOL All relevant documentation and testing were reviewed and available. All required blood products, implants, devices and or special equipment were made available as applicable. Pre-procedure verification was conducted and the correct site was marked if required. A fire risk and smoke assessment were done as applicable. The procedural time-out to verify correct patient, correct side/site, and procedure was conducted prior to performing the procedure and confirmed in a procedural pause. PRE-PROCEDURE DETAILS Appropriate hand hygiene, gown, cap, mask, protective eyewear, sterile gloves, skin preparation, sterile drape, and strict aseptic technique were utilized as applicable for the procedure.: yes Site preparation: chlorhexidine SEDATION / ANESTHESIA Anesthesia method: local infiltration and anesthesia Local infiltrate type: lidocaine POST-PROCEDURE DETAILS Procedure completed successfully: yes Procedure tolorated: Well Post procedure pain scale: 0/10 Complications: no apparent complications COMMENTS 100 mg 1% Lidocaine given SQ. documented in this encounter Plan of Treatment Upcoming Encounters Date Type Department Care Team (Latest Contact Info) Description 07/03/2025 8:00 AM CDT Telemedicine Department of Palliative Care in [place], [place] [address] [place] [phone] Yary Landa D.O. [address] [place] [phone] 07/15/2025 9:00 AM CDT Telemedicine Pedro sanchez [facility] in [place], [place] [address] [place] [phone] Jessica Rousseau M.B.B.S. [address] [place] [phone] 08/11/2025 9:00 AM CDT Nurse Only Section of Infectious Diseases in [place], [place] [address] [place] [phone] Jessica Rousseau M.B.B.S. [address] [place] [phone] 08/11/2025 10:20 AM CDT Comprehensive Visit Division of Gastroenterology in [place], [place] [address] [place] [phone] Jessica Rousseau M.B.B.S. [address] [place] [phone] 08/11/2025 1:00 PM CDT Clinical Support Department of Palliative Care in [place], [place] [address] [place] [phone] Uma Aly APRN, C.N.P., M.S.N. [address] [place] [phone] 08/13/2025 10:00 AM CDT Lab Department of Laboratory Medicine and Pathology, [facility], in [place], [place] [address] [place] [phone] Jessica Rousseau M.B.B.S. [address] [place] [phone] 08/13/2025 10:30 AM CDT [facility] [place] [address] [place] [phone] Jessica Rousseau M.B.B.S. [address] [place] [phone] 08/13/2025 11:00 AM CDT Nurse Only Pedro sanchez [facility] in [place], [place] [address] [place] [address] Jessica Rousseau M.B.B.S. [address] [place] [phone] 08/13/2025 11:30 AM CDT Office Visit Pedro LanzaKatalina laura [facility] in [place], [place] [address] [place] [address] Jessica Rousseau M.B.B.S. 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 See below for Variants of Unknown Significance and Additional Notes. Please see the section of Panel Gene List below for the complete list of genes tested. 06/22/2025 3:03 PM CDT DTL Clinical Trials Information regarding possible clinical trials for this patient can be found at the following sites: 1). ClinicalTrials.gov : http://clinicaltri als.gov/ct2/search /advanced 2). [facility]: http://www.[place]/research/clinica l-trials 3). National Cancer Leslie: http://www.cancer. gov/clinicaltrials /search 4). The Leukemia & Lymphoma Society's Clinical Trial Support Center https://www.hemato logy.org/education /clinicians/clinic da-upenx-mwvggrv-c enter 06/22/2025 3:03 PM CDT DTL Variants of Unknown Significance (VUS) None 06/22/2025 3:03 PM CDT DTL Additional Information None A portion of the testing process was performed at [facility] site [id number]. 06/22/2025 3:03 PM CDT DTL Method DNA is extracted from peripheral blood or bone marrow specimens. Library preparation for Next Generation Sequencing (NGS) is performed followed by probe hybridization and capture. Sequencing of the final sample library is performed on a NGS instrument. Following bioinformatic processing of the sequencing data, the sequencing results are interpreted to provide a final clinical report. Genomic alterations are called according to human genome reference build GRCh37 (hg19). Performance characteristics of NGS panel: Single base substitutions: accuracy >99%; reproducibility 100% (intra- and interassay); sensitivity 2-4% variant allele fraction with a minimum depth of coverage of 500X. Small insertion/deletion events (up to 500 bp): accuracy >99%; reproducibility 100% (intra- and interassay); sensitivity 2-4.99% variant allele fraction with a minimum depth of coverage of 500X. Larger single gene insertion/deletion events with sizes between > or = 501 bp and < or = 5 kb with a variant allele fraction > or = 5% and minimum depth of coverage of 500X* will be reported. Variants involving multiple genes or single gene events > or = 1 kb with variant allele fractions between 2-5% will not be reported. Events > or = 5 kb with a variant allele fraction > or = 5% within a single gene may be identified and if present, general information on gene, chromosome, and event type will be provided in the Additional Notes section, with suggestion for confirmatory testing. This test was developed and its performance characteristics determined by [facility] in a manner consistent with CLIA requirements. This test has not been cleared or approved by the U.S. Food and Drug Administration. *Some genetic or genomic alterations such as very large insertion/deletion events, copy number alterations (GLASS ROLLING MACHINE OPERATOR) and gene translocation events are not detected by this assay. 06/22/2025 3:03 PM CDT DTL Disclaimer CLINICAL DISCLAIMER The finding of a genetic alteration does not necessarily indicate the presence of a myeloid neoplasm. Some apparent mutations classified as VUS may represent very low population frequency polymorphisms. Hematopoietic cells in some individuals may have age-related genetic alterations associated with myeloid neoplasms in the absence of a hematologic malignancy (clonal hematopoiesis of indeterminate potential, CHIP, also known as age-related clonal hematopoiesis, ARCH). In addition, patients with unexplained cytopenias may also harbor similar myeloid neoplasm-associate d gene mutations (clonal cytopenias of uncertain significance, CCUS) [PMIDs: [id number], [id number], [id number], and [id number]]. Distinction between CHIP or CCUS and a myeloid malignancy requires correlation with clinical, pathologic, and other laboratory findings. Prior treatment for hematologic malignancy could affect the results obtained in this assay. In particular, prior allogeneic hematopoietic stem cell transplant (HSCT) may cause difficulties in resolving somatic or polymorphic alterations, or in assigning variant calls correctly to donor and recipient fractions, if pertinent clinical or laboratory information (e.g. chimerism engraftment status) is not provided. This assay does not distinguish between somatic and germline alterations in analyzed gene regions, particularly with VAF near 50% or 100%. If nucleotide alterations in genes associated with germline mutation syndromes are present and there is also a strong clinical suspicion or family history of malignant disease predisposition, additional genetic testing and appropriate counseling may be indicated. This report interpretation is based on current medical and scientific literature, but clinical significance may not be completely established for all reported target gene abnormalities identified. Correlation with clinical, histopathologic and additional laboratory findings is required for final interpretation of these results. The final interpretation of results for clinical management of the patient is the responsibility of the managing physician. TECHNICAL DISCLAIMER The depth of sequencing coverage may be variable for some target regions, but assay performance below the minimum acceptable criteria, or for failed regions are noted. Analysis of rare (low allele frequency) polymorphisms may be problematic in some cases. A low tumor cell percentage in the sample may affect the true mutation VAF and/or sensitivity. Suboptimal-perform ing regions (i.e. less than the expected minimum depth of coverage) may affect analytic sensitivity for detecting lower level mutations. This is a qualitative test. The variant read fractions are provided for information only and represent a relative proportion of mutated alleles, but do not indicate a measure of analytical sensitivity for the given genes; assay sensitivity is as stated in the method summary. Some genetic or genomic alterations, such as very large insertion/deletion events, copy number alterations (GLASS ROLLING MACHINE OPERATOR) and gene translocation events are not detected by this assay. 06/22/2025 3:03 PM CDT DTL OncoHeme Panel Gene list [id number] (NM_014915.2) 5'UTR, start at c.-172, exons 1-4, ASXL1 (NM_015338.5) exons 10-13, BCOR (NM_001123385.1) exons 4-15, BCORL1 (NM_001184772.2) exons 1-13, BRAF (NM_004333.4), exons 11 and 15, CALR (NM_004343.3) exon 9, CBL (NM_005188.3) intron 7 last 100bp before start of exon 8, exon 8, intron 8, and exon 9, CEBPA (NM_004364.4) exon 1, CSF3R (NM_000760.3) exons 4, 13-14 and 17, DDX41 (NM_016222.2) exons 1-17, DNMT3A (NM_022552.4) exons 8-23, ELANE (NM_001972.2) exons 1-5, ETNK1 (NM_018638.4) exons 2-5, ETV6 (NM_001987.4) exons 3-8, EZH2 (NM_004456.4) exons 2-20, FLT3 (NM_004119.2) exons 14-20 and intron 14, GATA1 (NM_002049.3) exons 2 and 4, start at c.--30 before exon 2, GATA2 (NM_032638.4) exons 1-6, intron 4, c.1017+1 - 1017+870, IDH1 (NM_005896.3) exons 4, 6-8, IDH2 (NM_002168.3) exons 3-4, 6-8, JAK2 (NM_004972.3) exons 12-20, KDM6A (UTX) (NM_021140.3) exons 1-29, KIT (NM_000222.2) exons 8-11 and 17, KRAS (NM_033360.3) exons 2-4, MPL (NM_005373.2) exons 1-12, NF1 (NM_001042492.2), exons 1-58, NPM1 exons 9-11, intron 10 start 3 bp before exon 11, NRAS (NM_002524.4) exons 2-4, PHF6 (NM_001015877.1) exons 2-10, PPM1D (NM_003620.3) exons 1-6, PTPN11 (NM_002834.3) exons 3-4 and 12-13, RAD21 (NM_006265.2) exons 1-2, 4-7, 9-11, 13-14, intron 9 start 3 bp before exon 10, RUNX1 (NM_001754.4) exons 1-9, intron 7 start 13 bp before exon 8, SETBP1 (NM_015559.2) partial exon 4; amino acids 400 - 950, SH2B3 (LNK) (NM_005475.2) exon 2-8, SF3B1 (NM_012433.2) exons 13-16, SMC3 (NM_005445.3) exons 7-8, 13, 17, 19, 21, and 29, SRSF2 (NM_003016.4) exons 1-2, STAG2 (NM_001042750.1) exons 4-34, exons 12 and 17 start at -3 in preceding introns, STAT3 (NM_139276.2), exons 2-24, TERT (NM_198253.2) exons 2-16, TET2 (NM_001127208.2) exons 3-11, TP53 (NM_000546.4) exons 4-11, U2AF1 (NM_001025203.1) exons 2, 6, and 8, UBA1 (NM_003334.3) exons 2-26, WT1 (NM_024426.2) exons 1-10, and ZRSR2 (NM_005089.3) exons 1-11. Unless otherwise noted, intronic coverage surrounding exons is +/-10 bp. For some genes, the transcript IDs used in this analysis may differ from those present in cancer mutation databases or other similar sources. Variants will be reported out using HGVS nomenclature per the documentation version available at varnomen.hgvs.org at the time of the report. 06/22/2025 3:03 PM CDT DTL Released by Signing Pathologist: Vipin Lewis M.D. 06/22/2025 3:03 PM CDT DTL Interpretation These results are considered preliminary and require complete integration with current pathology case [id number] for final interpretation. The result should NOT be interpreted in isolation for the purposes of diagnosis or clinical management. No pathogenic genetic alteration is detected in the listed gene regions. This finding does not exclude the presence of a genetic alteration occurring at an allele frequency below our established detection limit of 2-4%, or other genetic alterations present in untested gene regions. 06/22/2025 3:03 PM CDT DTL 06/15/2025 9:50 AM CDT 06/15/2025 3:07 PM CDT us Jessica Barnes LAB GENETIC TESTING Final Result [facility] [address] [place] [address], [facility] DT [address] [place] [address] * Hematologic Disorders, DNA Extract and Hold (06/15/2025 9:50 AM CDT) Specimen Type Bone marrow 06/17/2025 6:24 PM CDT DTL DNA Extract and Hold Result see method 06/17/2025 6:24 PM CDT DTL DNA Extraction Performed 06/17/2025 6:24 PM CDT DTL Comment: ----ADDITIONAL INFORMATION---- DNA was extracted from the sample and is being stored at minus 80 degrees Celsius for 1 year from the extraction date. To request molecular testing from the [facility]'s test menu, contact [facility] at [phone]. Method summary: DNA was extracted using an [id number] BioRobot ([employer]). 06/15/2025 9:50 AM CDT 06/15/2025 3:07 PM CDT Jessica Barnes LAB BLOOD NON ADD-ON Final Result [facility] [address] [place] [address], [facility] DTL [address] [facility] [address] [place] [address] * BCR/ABL1, p210, mRNA Detection, Reverse Jig Boring Machine Operator For Metal-PCR (RT-PCR), Quantitative, Monitoring Chronic Myeloid Leukemia (CML) (06/15/2025 9:50 AM CDT) Specimen Type Bone marrow 06/16/2025 9:12 AM CDT DTL BCR/ABL1, p210 Result see interpretation 06/16/2025 9:12 AM CDT DTL Interpretation These results are considered ancillary findings and require complete integration with the current pathology case [id number] for final interpretation. The result should NOT be interpreted in isolation for the purposes of diagnosis or clinical management. Bone marrow, BCR/ABL1 mRNA level analysis (p210 fusion form): [...] other rare BCR-ABL1 transcript isoforms. Signing Pathologist: Letty Mcdowell, Ph.D. 06/16/2025 9:12 AM CDT DTL Comment: ----ADDITIONAL INFORMATION---- Method summary - BCR/ABL1, p210 fusion: The BCR/ABL1 transcript level was evaluated using a quantitative, reverse cissp PCR. The analytical sensitivity of this assay [...] all possible fusion forms. Please contact the [facility] at [phone] with questions or if additional testing is required. See the [facility] Interpretive Handbook for method details. [...] developed and its performance characteristics determined by [facility] in a manner consistent with CLIA requirements. This test has not been cleared or approved by the U.S. Food and Drug Administration. 06/15/2025 9:50 AM CDT 06/15/2025 3:07 PM CDT Aasiya Soham M.B.B.S. LAB BLOOD NON ADD-ON Final Result [facility] [address] [place] [address], [facility] DTL [address] [facility] [address] [place] [address] * Chimerism Transplant No Cell Sort (06/15/2025 9:50 AM CDT) Specimen Type Bone marrow 06/17/2025 5:01 PM CDT DTL Interpretation These results are considered ancillary findings and require complete integration with the current pathology case [id number] for final interpretation. The result should NOT be interpreted in isolation for the purposes of diagnosis or clinical management. Bone marrow, chimerism analysis: The specimen contains approximately 100% donor DNA and approximately 0% recipient DNA. 3 informative loci were used in the analysis of this sample. Signing Pathologist: Jaylin Beltran M.D. The analytical sensitivity of this assay is approximately 5% in a posttransplant specimen (donor and recipient DNA mixed chimerism). Markers analyzed: [id number], P8C8719, FGA, SE33, vWA, D21S11, [id number], [id number], N93T944, D18S51, Q5G227, Z7U2162, CSF1PO, Y8A479, A11L226, I33K052, TPOX, Q81X325, J6C025 and X3J1574 06/17/2025 5:01 PM CDT DTL Comment: ----ADDITIONAL INFORMATION---- Method summary - Chimerism: Genomic DNA was extracted and the specimen evaluated for the percentages of donor and recipient DNA using a PCR-based method that amplifies several highly polymorphic short tandem repeats (see [facility] Interpretive Handbook for method details). This test was developed and its performance characteristics determined by [facility] in a manner consistent with CLIA requirements. This test has not been cleared or approved by the U.S. Food and Drug Administration. 06/15/2025 9:50 AM CDT 06/15/2025 12:09 PM CDT Aasiya Soham M.B.B.S. LAB GENETIC TESTING Final Result [facility] [address] [place] [address], [facility] D[facility] [address] [facility] [address] [place] [address] * [place] DX BONE MARROW BX & ASPIR (06/15/2025 9:45 AM CDT) Bone Marrow Narrative MMODAL - 06/15/2025 9:45 AM CDT Kevin Villa R.N. 06/15/2025 9:53 AM Biopsy Bone Marrow, Sedated Performed by: Kevin Villa R.N. Authorized by: Jessica Rousseau M.B.B.S. Care team members present 1. Kevin Villa R.N. 2. Jeanna Seay PROCEDURE DETAILS Procedure: Bone Marrow biopsy and Bone Marrow aspiration Bone marrow biopsy Laterality: Left Location of biopsy: Posterior iliac crest Patient position: Side lying Type of Needle: Manual bone marrow biopsy needle Findings: Aspirate obtained with spicules noted, redirected for core biopsy, fluid obtained and slides obtained Bone marrow aspiration Aspirate volume (mL): 18 CONSENT Consent obtained: written (Risks, benefits and alternatives were discussed and a written Informed Consent was obtained. Please see Informed Consent form for further details.) UNIVERSAL PROTOCOL All relevant documentation and testing were reviewed and available. All required blood products, implants, devices and or special equipment were made available as applicable. Pre-procedure verification was conducted and the correct site was marked if required. A fire risk and smoke assessment were done as applicable. The procedural time-out to verify correct patient, correct side/site, and procedure was conducted prior to performing the procedure and confirmed in a procedural pause. PRE-PROCEDURE DETAILS Appropriate hand hygiene, gown, cap, mask, protective eyewear, sterile gloves, skin preparation, sterile drape, and strict aseptic technique were utilized as applicable for the procedure.: yes Site preparation: chlorhexidine SEDATION / ANESTHESIA Anesthesia method: local infiltration and anesthesia Local infiltrate type: lidocaine POST-PROCEDURE DETAILS Procedure completed successfully: yes Procedure tolorated: Well Post procedure pain scale: 0/10 Complications: no apparent complications COMMENTS 100 mg 1% Lidocaine given SQ. Aasiya Soham M.B.B.S. PROCEDURE/MINOR SURGICAL O RDERABLES Final Result [facility]ODAL NA * Hematopathology (06/15/2025 12:00 AM CDT) 06/16/2025 10:32 AM [facility] Report electronically signed by Hanna Xiong M.D., Ph.D. I verify that I have examined all relevant slides/materials for the specimen(s) and rendered or confirmed the diagnosis. 06/16/2025 10:32 AM [facility] Gross Description B: Core biopsy specimens were received in B5 and were subsequently placed in formalin. Received in formalin labeled with the patient's name, medical record number, and bone marrow biopsy are two brown bone marrow cores, 0.3 cm in average diameter and 3.6 cm in aggregate length. Specimens are submitted en toto in cassette B1. The specimen was decalcified prior to processing. Grossed by OER. C: Received in formalin labeled with the patient's name, medical record number, and bone marrow clot is a 1.8 x 0.9 x 0.3 cm aggregateof dark red bone marrow clot material. The specimen is submitted en toto in cassette C1. Grossed by OER. 06/16/2025 10:32 AM [facility] Addendum ADDENDUM Molecular analysis for next generation sequencing (NGSHM), bone marrow ([id number]; 06/15/2025): Pathogenic Mutations Detected: None No other pathogenic mutations were detected in the other genes tested on the panel at the reportable limit of assay detection. See full report for details. Please see the section of Panel Gene List in the full report for the complete list of genes tested. Variants of Uncertain Significance: None The VUS variants listed here (with approximate variant allele %) are not sufficiently characterized in the current literature and are therefore of uncertain clinical significance at this time. They are reported here for future reference in the event they become clinically significant in the light of new scientific data. Molecular Hematopathology studies interpreted by Vipin Lewis M.D. Signed by Hanna Xiong M.D., Ph.D. 06/23/2025 8:41 AM ADDENDUM Molecular analysis for chimerism transplant no cell sort, bone marrow ([id number]; 06/15/2025): The specimen contains approximately 100% donor DNA and approximately 0% recipient DNA. 3 informative loci were used in the analysis of this sample. See molecular report for complete details. Molecular Hematopathology studies interpreted by Jaylin Beltran M.D. Signed by Hanna Xiong M.D., Ph.D. 06/18/2025 11:35 AM ADDENDUM Molecular analysis for BCR/ABL1, p210, quant, bone marrow ([id number]; 06/15/2025): Negative. No BCR/ABL1 p210 mRNA transcripts were detected (%BCR/ABL1(p210):ABL 1=0). NOTE: Please correlate this result with the [...] leukemia) or other rare BCR-ABL1 transcript isoforms. See molecular report for complete details. Molecular Hematopathology studies interpreted by Letty Mcdowell, Ph.D. Signed by Hanna Xiong M.D., Ph.D. 06/16/2025 3:33 PM 06/23/2025 8:41 AM [facility] Comment:REVISED RESULTS Interpretation FINAL DIAGNOSIS Peripheral blood, bone marrow aspirate and biopsy, iliac crest: 1. Normocellular bone marrow with morphologically unremarkable trilineage hematopoiesis. 2. No morphologic features of a myeloproliferative neoplasm, or other primary malignant myeloid neoplasm. See comment. Comment: Additional ancillary testing is pending, and results will be reported in an addendum. MICROSCOPIC DESCRIPTION Peripheral Blood: CBC - 06/12/2025 5:37:00 PM HGB 11.8 g/dL; RBC 4.33 x10(12)/L; MCV 83.8 fL; RDW 14.2 %; WBC 6.8 x10(9)/L; PLT 203 x10(9)/L Cell % of Total Cells NEUTROPHILS 76 LYMPHOCYTES 18 MONOCYTES 1 EOSINOPHILS 3 BASOPHILS 0 METAMYELOCYTES 0 MYELOCYTES 2 PROMYELOCYTES 0 BLASTS 0 OTHER CELLS 0 NRBC 0 Total Cells: 100 Peripheral Smear: No cytologic abnormalities. Bone Marrow Aspirate/Touch Imprint/Biopsy: Aspirate quality: Cellular. Biopsy quality: Adequate. M:E ratio: Normal. Cellularity: Normal, 50%. Erythroid precursors: Normal quantity. Normal morphology. Myeloid precursors: Normal quantity. Normal morphology. Blasts not increased. Megakaryocytes: Increased quantity. Normal morphology and distribution. Lymphocytes: No morphologic abnormalities. Plasma cells: Not increased. ANCILLARY STUDIES Cytogenetic analysis, bone marrow aspirate: Sample has been forwarded for testing and results will be reported in an addendum. Molecular analysis for Chimerism, bone marrow aspirate: Sample has been forwarded for testing. Results will be reported in an addendum. Molecular analysis for BCR/ABL-p210 (Quantitative), bone marrow aspirate: Sample has been forwarded for testing. Results will be reported in an addendum. Molecular analysis for Myeloid Neoplasms, NGS, V, (47 Gene), bone marrow aspirate: Sample has been forwarded for testing. Results will be reported in an addendum. Molecular analysis for BCR/ABL Kinase Mutation, bone marrow aspirate: Test not indicated per Hematopathology review. Sample will be saved for 1 week. DNA extraction, bone marrow aspirate: Requested. Extracted sample(s) will be stored for 1 year from date of extraction. 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) Abnormal Finding Of Blood Chemistry Unspecified Follow Up Examination Following Bone Marrow Transplant Corticosteroid Treatment Moisture Meter Operator Systemic documented in this encounter Administered Medications Inactive Administered Medications - up to 3 most recent administrations Medication Order MAR Action Action Date Dose Rate Site Lactated Ringer's 80 mL/hr, intravenous, Continuous, Starting on 06/15/25 at 1000, Pre-Op New Bag 06/15/2025 9:38 AM CDT 80 mL/hr 80 mL/h r documented in this encounter Additional Health Concerns Infection Onset Date Last Indicated Resolved Time Protective Environment 03/02/2023 03/02/2023 Assessment Noted Time PHQ-9 Depression Total Score: 2 12/10/19 25 2:46 PM [employer]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 [address] [place] [address] [phone] PCP - General Family Medicine 04/25/23 documented as of this encounter
--- OUTSIDE RECORDS SUMMARY | 2025-06-15 09:41 | XMS_ITS | Encounter Summary ---
Author Organization [facility] Address [address] [place] [address] Care Team Providers Care Appliance Tester Name Role Phone Renzo Andres M.D. Primary Care Provider [phone] Encounter Details Date Type Department Care Team (Late st Contact Info) Description 06/15/2025 9:41 AM CDT Anesthesia Event Outpatient Procedure Center in [place], [place] [address] [place] [phone] Myla Valenzuela APRN, TANA, DNAP [address] [place] [phone] Kristin Friend M.D. [address] [place] [phone] Anesthesia Record Procedure Summary Procedure Name Responsible [...] things needed for daily living? No 06/12/2025 [facility] Utilities Answer Date Recorded In the past 12 months has th e electric, gas, oil, or water company threatened to shut off services in your home? No 06/12/2025 Depression Answer Date Recor ded PHQ-9 Total Score (max 27) 2 12/10 Housing Stability Answer Date Recorded What is your living situation today? I have a [facility] place to live 06/12/2025 Education Answer Date Recorded What is the highest level of school you have completed or the highest degree you have received? Some college, no degree 04/24/2019 Comments No Sex and Gender Information Value Date Recorded Sex Assigned at Female 12/26/2018 8:37 PM MEDICAL CLAIMS MANAGER Legal Sex Female 2:43 PM MEDICAL CLAIMS MANAGER Gender Identity Female 12/26/2018 8:37 PM MEDICAL CLAIMS MANAGER Sexual Orientation Choose not to disclose 2020 3:46 PM CDT documented as of this encounter OR Notes * Anesthesia Postprocedure Evaluation - Myla Valenzuela, KARON, ELECTRICAL ENGINEER MEP, DNAP - 06/15/2025 9:58 AM CDT Patient: Radha Martinez Procedure Summary Date: 06/15/25 Room / Location: Outpatient Procedure Center in [place], [place] Anesthesia Start: 940 Anesthesia Stop: 955 Procedure: BIOPSY BONE MARROW Diagnosis: 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 The use of blood products not discussed Approval to Proceed: approved for anesthesia documented in this encounter Plan of Treatment Upcoming Encounters Date Type Department Care Team (Latest Contact Info) Description 07/03/2025 8:00 AM CDT Telemedicine Department of Palliative Care in [place], [place] [address] [place] [phone] Yary Landa D.O. [address] [place] [phone] 07/15/2025 9:00 AM CDT Telemedicine Pedro Aravind [facility] in [place], [place] [address] [place] [phone] Jessica Rousseau M.B.B.S. [address] [place] [phone] 08/11/2025 9:00 AM CDT Nurse Only Section of Infectious Diseases in [place], [place] [address] [place] [phone] Jessica Rousseau M.B.B.S. [address] [place] [phone] 08/11/2025 10:20 AM CDT Comprehensive Visit Division of Gastroenterology in [place], [place] [address] [place] [address] Jessica Rousseau M.B.B.S. [address] [place] [phone] 08/11/2025 1:00 PM CDT Clinical Support Department of Palliative Care in [place], [place] [address] [place] [address] Uma Aly APRN, C.N.P., M.S.N. [address] [place] [phone] 08/13/2025 10:00 AM CDT Lab Department of Laboratory Medicine and Pathology, [facility] in [place], [place] [address] [place] [address] Jessica Rousseau M.B.B.S. [address] [place] [phone] 08/13/2025 10:30 AM CDT [facility] [place], [place] [address] [place] [phone] Jessica Rousseau M.B.B.S. [address] [place] [phone] 08/13/2025 11:00 AM CDT Nurse Only [facility] in [place], [place] [address] [place] [phone] Jessica Rousseau M.B.B.S. [address] [place] [phone] 08/13/2025 11:30 AM CDT [facility] in [place], [place] [address] [place] [address] Jessica Rousseau M.B.BKatalinaS. [address] [place] [address] documented as of this encounter Visit Diagnoses [...] Score: 2 12/10/19 25 2:46 PM MEDICAL CLAIMS MANAGER documented as of this encounter Care Teams Appliance Tester Relationship Specialty Start Date End Date Renzo Andres M.D. [address] [place] [phone] PCP - General Family Medicine 04/25/23 documented as of this encounter
--- OUTSIDE RECORDS SUMMARY | 2025-06-15 14:00 | XMS_ITS | Encounter Summary ---
Author Organization [facility] Address [address] [place] [address] Care Team Providers Care Hospitality Job Titles Name Role Phone Renzo Andres M.D. Primary Care Provider [phone] Reason for Visit * Transplant (Routine) - Closed Specialty Diagnoses / Procedures Referred By Estefania t Referred To Contact Transplant Jessica Rousseau M.B.B.S. [address] [place] [phone] Phone: tel: fax: [facility] Referral ID Status Reason Start Date Expiration Date Visits Re quested Visits Authorized [id number] Closed 06/11/2025 12/11/2026 1 1 Encounter Details Date Type Department Care Team (Latest Contact Info) Description 06/15/2025 2:00 PM CDT [facility] [place], [place] [address] [place] [address] [phone] Jessica Rousseau M.B.B.S. [address] [place] [address] [phone] Analia Carter, COMPUTER GRAPHIC ARTIST, C.N.P. 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 No 06/12/2025 [facility] Utilities Answer Date Recorded In the past 12 months has [facility] electric, gas, oil, or water company threatened to shut off services in your home? No 06/12/2025 Depression Answer Date Recor ded PHQ-9 Total Score (max 27) 2 12/10 Housing Stability Answer Date Recorded What is your living situation today? [facility] 06/12/2025 Education Answer Date Recorded What is the highest level of school you have completed or the highest degree you have received? Some college, no degree 04/24/2019 Comments No Sex and Gender Information Value Date Recorded Sex Assigned at Female 12/26/2018 8:37 PM HEATING ELEMENT WINDER Legal Sex Female 2:43 PM HEATING ELEMENT WINDER Gender Identity Female 12/26/2018 8:37 PM HEATING ELEMENT WINDER Sexual Orientation Choose not to disclose 2020 [...] SUBJECTIVE TRANSPLANT PHYSICIAN Dr. Jessica Rousseau, pager [phone]. HISTORY OF PRESENT ILLNESS Radha Martinez is a 35 y.o. female with a past medical history significant for CML who received a MUD HCT on 12/10/24. She is at [facility] today for the follow up. Day + 187 HISTORY OF PRESENT ILLNESS Please refer to multiple prior notes in EMR for complete hematologic history: Ms. Martinez is a 35 y.o. 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 At the time of diagnosis, there was grade 3 reticulin fibrosis noted. The cytogenetics identified a [place] chromosome in 20 metaphases. The BCR-ABL1 P [...] t(9;22) metaphases. NGS is positive for ASXL1 p.Siv675Qeyno*12 (20%) and p.Vtt353* (3%). 06/17/2024: feeling quite symptomatic since the [...] prophylaxis: Ursodiol 600 mg two times daily. [facility] ID Number: [id number] [...] donor DNA and approximately 40% recipient DNA. [id number]% donor DNA and approximately 0% recipient DNA. [...] had just started 40 mg daily today 14435) - monitor if chest pressure improves (this [...] right eye. Wears glasses. - Followed by [facility] in [place], [place]. - Patient will notify team if any vision changes. # Blood Products # TACO - Requires infusion of platelets at a slower rate # Disposition - 06/25/25 Echocardiogram - 06/25/[address] - 06/25/25 appointments on [place] [address] Rousseau - 06/26/ video visit with Palliative care documented in this encounter Plan of Treatment Upcoming Encounters Date Type Department Care Team (Latest Contact Info) Description 07/03/2025 8:00 AM CDT Telemedicine Department of Palliative Care in [place], [place] [address] [place] [address] Yary Landa D.O. [address] [place] [phone] 07/15/2025 9:00 AM CDT Telemedicine Pedro sanchez [facility] in [place], [place] [address] [place] [address] Jessica Rousseau M.B.B.S. [address] [place] [phone] 08/11/2025 9:00 AM CDT Nurse Only Section of Infectious Diseases in [place], [place] [address] [place] [phone] Jessica Rousseau M.B.B.S. [address] [place] [phone] 08/11/2025 10:20 AM CDT Comprehensive Visit Division of Gastroenterology in [place], [place] [address] [place] [address] Jessica Rousseau M.B.B.S. [address] [place] [phone] 08/11/2025 1:00 PM CDT Clinical Support Department of Palliative Care in [place], [place] [address] [place] [address] Uma Aly APRN, C.NLuigi., M.S.N. [address] [place] [phone] 08/13/2025 10:00 AM CDT Lab Department of Laboratory Medicine and Pathology, [facility], in [place], [place] [address] [place] [address] Jessica Rousseau M.B.B.S. [address] [place] [phone] 08/13/2025 10:30 AM CDT Office Visit [facility] in [place], [place] [address] [place] [address] Jessica Rousseau M.B.B.S. [address] [place] [phone] 08/13/2025 11:00 AM CDT Nurse Only [facility] in [place], [place] [address] [place] [address] Jessica Rousseau M.B.B.S. [address] [place] [phone] 08/13/2025 11:30 AM CDT Office Visit [facility] in [place], [place] [address] [place] [address] Jessica Rousseau M.B.B.S. 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 [address] [place] [phone] PCP - General Family Medicine 04/25/23 documented as of this encounter
--- OUTSIDE RECORDS SUMMARY | 2025-06-22 18:56 | XMS_ITS | Encounter Summary ---
Author Organization [facility] Address [address] [place] [address] Care Team Providers Care Property Management Bookkeeper Name Role Phone Renzo Andres M.D. Primary Care Provider Reason for Referral * Specialty Diagnoses / Procedures Referred By Estefania acosta Referred To Contact [facility] [address] [place] [address] Phone: tel: [facility] Referral ID Status Reason Start Date Expiration Date Visits Re quested Visits Authorized Encounter Details Date Type Department Care Team (Latest Contact Info) Description 06/22/2025 6:56 PM CDT - 06/22/2025 11:59 PM CDT Hospital Encounter [facility], [facility], Ninth Floor [address] [place] [phone] Natalya Carlos P.A.-C. 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 No 06/24/2025 [facility] Utilities Answer Date Recorded In the past 12 months has [employer], gas, oil, or water [employer] threatened to shut off services in your home? No 06/24/2025 Depression Answer Date Recor ded PHQ-9 Total Score (max 27) 2 12/10 Housing Stability Answer Date Recorded What is your living situation today? I have a [facility] place to live 06/24/2025 Education Answer Date Recorded What is the highest level of school you have completed or the highest degree you have received? Some college, no degree 04/24/2019 Comments No Sex and Gender Information Value Date Recorded Sex Assigned at Female 12/26/2018 8:37 PM MINE BOSS Legal Sex Female 2:43 PM MINE BOSS Gender Identity Female 12/26/2018 8:37 PM MINE BOSS Sexual Orientation Choose not to disclose 2020 [...] needed for indigestion (dyspepsia). 06/13/2025 06/30/20 25 docusate sodium (Colace) 100 mg capsule [...] CDT # Incoming phone call, 06/22 @ 3280 Phone call was routed from 9 nursing [...] and was willing to drive down from [place]. She does have [place] up on [place] [address] already scheduled for 06/[address] Rousseau. [...] reticulin fibrosis noted. 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 The BCR-ABL1 P [...] nausea and was willing to drive downfrom [place]. She does have follow up on [place] [...] t(9;22) metaphases. 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 06/17/2024: feeling quite symptomatic since the [...] CDT Telemedicine Department of Palliative Care in [place], [place] [address] [place] [phone] Yary Landa D.O. [address] [place] [phone] 07/15/2025 9:00 AM CDT Telemedicine [facility] for Transplantation and Clinical Regeneration in [place], [place] [address] [place] [phone] Jessica Rousseau M.B.B.S. [address] [place] [phone] 08/11/2025 9:00 AM CDT Nurse Only Section of Infectious Diseases in [place], [place] [address] [place] [phone] Jessica Rousseau M.B.B.S. [address] [place] [phone] 08/11/2025 10:20 AM CDT Comprehensive Visit Division of Gastroenterology in [place], [place] [address] [place] [phone] Jessica Rousseau M.B.B.S. [address] [place] [phone] 08/11/2025 1:00 PM CDT Clinical Support Department of Palliative Care in [place], [place] [address] [place] [phone] Uma Aly APRN, C.N.P., M.S.N. [address] [place] [phone] 08/13/2025 10:00 AM CDT Lab Department of Laboratory Medicine and Pathology, [facility], in [place], [place] [address] [place] [address] Jessica Rousseau M.B.B.S. [address] [place] [phone] 08/13/2025 10:30 AM CDT Office Visit [facility] Trans[facility] Clinical Regeneration in [place], [place] [address] [place] [address] Jessica Rousseau M.B.B.S. [address] [place] [phone] 08/13/2025 11:00 AM CDT Nurse Only [facility] Transplantation and Clinical Regeneration in [place], [place] [address] [place] [phone] Jessica Rousseau M.B.B.S. [address] [place] [phone] 08/13/2025 11:30 AM CDT Office [facility] in [place], [place] [address] [place] [address] Jessica Rousseau M.B.B.S. [address] [place] [phone] Scheduled Referrals Name Type Priority Associated Diagnoses [...] mg (Dilaudid) 2 mg, oral, Once, On 06/22/25 at 2200, For 1 dose, Does patient [...] Total Score: 2 12/10/19 25 2:46 PM MINE BOSS documented as of this encounter Care Teams Property Management Bookkeeper Relationship Specialty Start Date End Date Renzo Andres M.D. [address] [place] [phone] PCP - General Family Medicine 04/25/23 documented as of this encounter
--- OUTSIDE RECORDS SUMMARY | 2025-06-23 08:30 | XMS_ITS | Encounter Summary ---
Author Organization [facility] Address [address] [place] [address] Care Team Providers Care Foundation Relations Manager Name Role Phone Renzo Andres M.D. Primary Care Provider [phone] Reason for Visit * Outpatient (Routine) - Closed Specialty Diagnoses / Procedures Referred By Estefania t Referred To Contact Pharmacy Tessa Jesus APRN, C.N.P., D.N.P. [address] [place] [phone] Phone: tel: fax: [facility] Referral ID Status Reason Start Date Expiration Date Visits Re quested Visits Authorized [id number] Closed 05/20/2025 11/19/2026 1 1 Encounter Details Date Type Department Care Team (Latest Contact Info) Description 06/23/2025 8:30 AM CDT Office Visit Pedro sanchez [facility] for Transplantation and Clinical Regeneration in [place], [place] [address] [place] [phone] Tessa Jesus APRN, C.N.P., D.N.P. [address] [place] [phone] Nelli Parker, Pharm.D., R.Ph. [address] [place] [address] [place] [phone] Transplant Stem Cell (HCC) (Primary Dx) Discharge [...] things needed for daily living? No 06/24/2025 [facility] Utilities Answer Date Recorded In the past 12 months has [facility] electric, gas, oil, or water company threatened to shut off services in your home? No 06/24/2025 Depression Answer Date Recor ded PHQ-9 Total Score (max 27) 2 12/10 Housing Stability Answer Date Recorded What is your living situation today? I have a [facility] place to live 06/24/2025 Education Answer Date Recorded What is the highest level of school you have completed or the highest degree you have received? Some college, no degree 04/24/2019 Comments No Sex and Gender Information Value Date Recorded Sex Assigned at Female 12/26/2018 8:37 PM FORM BUILDER HELPER Legal Sex Female 2:43 PM FORM BUILDER HELPER Gender Identity Female 12/26/2018 8:37 PM FORM BUILDER HELPER Sexual Orientation Choose not to disclose [...] 06/23/2025 8:30 AM CDT Medication Management Services ([facility]) SUBJECTIVE Radha Martinez is a 35 y.o. female, who is seen by the [facility] Pharmacist for targeted medication review. She was [...] Depression Brother shena martinez Anxiety disorder [facility] Maternal Grandmother nancy Breast cancer Maternal Grandmother nancy Psychiatric Maternal Grandfather silvia [facility] Skin cancer Paternal Grandfather Berkley vega [4] [...] Camargo; Surgeon: Brianna Hernandez M.D., Ph.D.; Location: [facility] OR [7] Patient Active Problem List [...] CDT Telemedicine Department of Palliative Care in [place], [place] [address] [place] [phone] Yary Landa, Cesar [address] [place] [phone] 07/15/2025 9:00 AM CDT Telemedicine [facility] for Transplantation and Clinical Regeneration in [place], [place] [address] [place] [phone] Jessica Rousseau M.B.B.S. [address] [place] [phone] 08/11/2025 9:00 AM CDT Nurse Only Section of Infectious Diseases in [place], [place] [address] [place] [phone] Jessica Rousseau M.B.B.S. [address] [place] [phone] 08/11/2025 10:20 AM CDT Comprehensive Visit Division of Gastroenterology in [place], [place] [address] [place] [phone] Jessica Rousseau M.B.B.S. [address] [place] [address] 08/11/2025 1:00 PM CDT Clinical Support Department of Palliative Care in [place], [place] [address] [place] [address] Uma Aly APRN, C.N.P., M.S.N. [address] [place] [phone] 08/13/2025 10:00 AM CDT Lab Department of Laboratory Medicine and Pathology, [facility], in [place], [place] [address] [place] [address] Jessica Rousseau M.B.B.S. [address] [place] [phone] 08/13/2025 10:30 AM CDT [facility] in [place], [place] [address] [place] [address] Jessica Rousseau M.B.B.S. [address] [place] [phone] 08/13/2025 11:00 AM CDT Nurse Only [facility] for Transplantation and Clinical Regeneration in [place], [place] [address] [place] [address] Jessica Rousseau M.B.B.S. [address] [place] [phone] 08/13/2025 11:30 AM CDT [facility] in [place], [place] [address] [place] [address] Jessica Rousseau M.B.B.S. [address] [place] [phone] documented as of this encounter Visit Diagnoses Diagnosis Transplant Stem Cell (HCC)- Primary documented in this encounter Additional Health Concerns Infection Onset Date Last Indicated Resolved Time Protective Environment 03/02/2023 03/02/2023 Assessment Noted Time PHQ-9 Depression Total Score: 2 12/10/19 25 2:46 PM FORM BUILDER HELPER documented as of this encounter Care Teams Foundation Relations Manager Relationship Specialty Start Date End Date Renzo Andres M.D. [address] [place] [phone] PCP - General Family Medicine 04/25/23 documented as of this encounter
--- OUTSIDE RECORDS SUMMARY | 2025-06-23 09:00 | XMS_ITS | Encounter Summary ---
Author Organization [facility] Address [address] [place] [address] Care Team Providers Care Sliver Cutter Name Role Phone Renzo Andres M.D. Primary Care Provider Encounter Details Date Type Department Care Team (Late st Contact Info) Description 06/23/2025 9:00 AM CDT Patient [facility] in [place], [place] [address] [place] [address] Carolyn Crowell Social History Tobacco Use Types Packs/Day Years [...] for daily living? No 06/24/2025 [facility] Utilities Answer Date Recorded In the past 12 months has th e electric, gas, oil, or water company threatened to shut off services in your home? No 06/24/2025 Depression Answer Date Recor ded PHQ-9 Total Score (max 27) 2 12/10 Housing Stability Answer Date Recorded What is your living situation today? I have a [facility] place to live 06/24/2025 Education Answer Date Recorded What is the highest level of school you have completed or the highest degree you have received? Some college, no degree 04/24/2019 Comments No Sex and Gender Information Value Date Recorded Sex Assigned at Female 12/26/2018 8:37 PM ACTUARIAL ASSOCIATE Legal Sex Female 2:43 PM ACTUARIAL ASSOCIATE Gender Identity Female 12/26/2018 8:37 PM ACTUARIAL ASSOCIATE Sexual Orientation Choose not to disclose 2020 3:46 PM CDT documented as of this encounter Progress Notes * Carolyn Crowell - 06/23/2025 8:59 AM CDT Radha Martinez provided transportation assistance in the form of a gas card for 06/23/25 and 06/25/25 to assist with gas costs to and from appointments. I informed patient that transportation funds are limited and based on availability and eligibility criteria. Encouraged them to reach out to the patient navigation team with any questions. [facility] [phone]. Cosigned by Mallory Corey, L.S.W. at 06/30/2025 2:34 PM CDT documented in this encounter Plan of Treatment Upcoming Encounters Date Type Department Care Team (Latest Contact Info) Description 07/03/2025 8:00 AM CDT Telemedicine Department of Palliative Care in [place], [place] [address] [place] [phone] Yary Landa D.O. [address] [place] [phone] 07/15/2025 9:00 AM CDT Telemedicine [facility] for Transplantation and Clinical Regeneration in [place], [place] [address] [place] [phone] Jessica Rousseau M.B.B.S. [address] [place] [phone] 08/11/2025 9:00 AM CDT Nurse Only Section of Infectious Diseases in [place], [place] [address] [place] [phone] Jessiac Rousseau M.B.B.S. [address] [place] [phone] 08/11/2025 10:20 AM CDT Comprehensive Visit Division of Gastroenterology in [place], [place] [address] [place] [phone] Jessica Rousseau M.B.B.S. [address] [place] [phone] 08/11/2025 1:00 PM CDT Clinical Support Department of Palliative Care in [place], [place] [address] [place] [phone] Uma Aly APRN, C.N.P., M.S.N. [address] [place] [phone] 08/13/2025 10:00 AM CDT Lab Department of Laboratory Medicine and Pathology, [facility], in [place], [place] [address] [place] [address] Jessica Rousseau M.B.B.S. [address] [place] [phone] 08/13/2025 10:30 AM CDT Office Visit [facility] in [place], [place] [address] [place] [address] Jessica Rousseau M.B.B.S. [address] [place] [phone] 08/13/2025 11:00 AM CDT Nurse Only [facility] Transplantation and Clinical Regeneration in [place], [place] [address] [place] [address] Jessica Rousseau M.B.B.S. [address] [place] [phone] 08/13/2025 11:30 AM CDT Office Visit [facility] Transplantation and Clinical Regeneration in [place], [place] [address] [place] [address] Jessica Rousseau M.B.B.S. [address] [place] [phone] documented as of this encounter Visit Diagnoses Not on filedocumented in this encounter Additional Health Concerns Infection Onset Date Last Indicated Resolved Time Protective Environment 03/02/2023 03/02/2023 Assessment Noted Time PHQ-9 Depression Total Score: 2 12/10/19 25 2:46 PM ACTUARIAL ASSOCIATE documented as of this encounter Care Teams Sliver Cutter Relationship Specialty Start Date End Date Renzo Andres M.D. [address] [place] [address] [place] [phone] PCP - General Family Medicine 04/25/23 documented as of this encounter
--- OUTSIDE RECORDS SUMMARY | 2025-06-23 10:00 | XMS_ITS | Encounter Summary ---
Author Organization [facility] Address [address] [place] [id number] Care Team Providers Care Student Ambassador Name Role Phone Renzo Andres M.D. Primary Care Provider Reason for Referral * Transplant (Routine) - Closed Specialty Diagnoses / Procedures Referred By Contac t Referred To Contact Transplant Jessica Rousseau M.B.B.S. [address] [place] [phone] Phone: tel: fax: [facility] Referral ID Status Reason Start Date Expiration Date Visits Re quested Visits Authorized [id number] Closed 06/23/2025 12/23/2026 1 1 Scheduling Instructions Please schedule with BMT MD for 30 minutes. Patient type: Allo Over 100 Visit Type: Return Scheduling Preferences Option 1: MD/RN no joint visit Option 2: MD/RN no joint visit Other Scheduling Instructions:please schedule with DR Rousseau next week when she is avail Primary MD:DR Rousseau RN Team: Rst Bmt Team [place] * Transplant (Routine) - Closed Specialty Diagnoses / Procedures Referred By Contac t Referred To Contact Transplant Jessica Rousseau M.B.B.S. [address] [place] [phone] Phone: tel: fax: [facility] Referral ID Status Reason Start Date Expiration Date Visits Re quested Visits Authorized [id number] Closed 06/23/2025 12/23/2026 1 1 Scheduling Instructions Please schedule with RNCC for 30 min Patient type: Allo Over 100 Visit Type: Return Scheduling Preferences Option 1: MD/RN no joint visit Option 2: MD/RN no joint visit Other Scheduling Instructions:please schedule with DR Rousseau next week when she is avail Primary MD:DR Rousseau RN Team: Rst Bmt Team [place] * Medication Prior Authorization - Closed Specialty Diagnoses / Procedures Referred By Contac t Referred To Contact Diagnoses Transplant Bone Marrow Allogeneic (HCC) Jessica Rousseau M.B.B.S. [address] [place] [phone] Phone: tel: fax: Referral ID Status Reason Start Date Expiration Date Visits Re quested Visits Authorized [id number] Closed 1 1 Reason for Visit * Transplant (Routine) - Closed Specialty Diagnoses / Procedures Referred By Contac t Referred To Contact Transplant Tessa Jesus APRN, C.N.P., D.N.P. [address] [place] [phone] Phone: tel: fax: [facility] Referral ID Status Reason Start Date Expiration Date Visits Re quested Visits Authorized [id number] Closed 05/20/2025 11/19/2026 1 1 Encounter Details Date Type Department Care Team (Latest Contact Info) Description 06/23/2025 10:00 AM CDT [facility] [place], [place] [address] [place] [phone] Jessica Rousseau M.B.B.S. [address] [place] [address] Transplant Bone Marrow Allogeneic (HCC) (Primary Dx); [...] daily living? No 06/24/2025 [facility] Utilities Answer Date Recorded In the past 12 months has th e electric, gas, oil, or water company threatened to shut off services in your home? No 06/24/2025 Depression Answer Date Recor ded PHQ-9 Total Score (max 27) 2 12/10 Housing Stability Answer Date Recorded What is your living situation today? I have a [facility] [place] place to live 06/24/2025 Education Answer Date Recorded What is the highest level of school you have completed or the highest degree you have received? Some college, no degree 04/24/2019 Comments No Sex and Gender Information Value Date Recorded Sex Assigned at Female 12/26/2018 8:37 PM [employer] Legal Sex Female 2:43 PM [employer] Gender Identity Female 12/26/2018 8:37 PM [employer] Sexual Orientation Choose not to disclose 2020 3:46 PM CDT documented as of this encounter Progress Notes * Jessica Rousseau M.B.B.S. - 06/23/2025 10:00 AM CDT SUBJECTIVE TRANSPLANT PHYSICIAN Dr. Jessica Rousseau, pager [phone]. HISTORY OF PRESENT ILLNESS Radha Martinez is a 35 y.o. female with a past medical history significant for CML who received a MUD HCT on 12/10/24. She is at [facility] today for the follow up. Day + 196 HISTORY OF PRESENT ILLNESS Please refer to multiple prior notes in EMR for complete hematologic history: Ms. Martinez is a 35 y.o. 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 At the time of diagnosis, there was grade 3 reticulin fibrosis noted. The cytogenetics identified a Socorro chromosome in 20 metaphases. The BCR-ABL1 P [...] t(9;22) metaphases. NGS is positive for ASXL1 p.[id number]*12 (20%) and p.Lii423* (3%). 06/17/2024: feeling quite symptomatic since the [...] prophylaxis: Ursodiol 600 mg two times daily. [facility]: [id number] [...] donor DNA and approximately 40% recipient DNA. [id number]% donor DNA and approximately 0% recipient DNA. [...] had just started 40 mg daily today [id number]) - monitor if chest pressure improves (this [...] eye. Wears glasses. - Followed by [facility] in [place], [place]. - Patient will notify team if any vision changes. # Blood Products # TACO - Requires infusion of platelets at a slower rate #CMV- last checked 06/03/2025- #EBV - last checked March 2025 # Disposition - 06/25/25 Echocardiogram - 06/26/ video visit with Palliative care Later: 06/24/2025 Patient called the BMT coordinator twice regarding worsening abdominal pain. She was taking her sonto an appointment and was advised admission to the BMT [facility] service for further management of her abdominal [...] to a time when she comes to [place] and her ct angio was canceled. Lab [...] CDT Telemedicine Department of Palliative Care in [place], [place] [address] [place] [phone] Yary Landa D.O. [address] [place] [phone] 07/15/2025 9:00 AM CDT Telemedicine [facility] in [place], [place] [address] [place] [phone] Jessica Rousseau M.B.B.S. [address] [place] [phone] 08/11/2025 9:00 AM CDT Nurse Only Section of Infectious Diseases in [place], [place] [address] [place] [phone] Jessica Rousseau M.B.B.S. [address] [place] [phone] 08/11/2025 10:20 AM CDT Comprehensive Visit Division of Gastroenterology in [place], [place] [address] [place] [address] Jessica Rousseau M.B.B.S. [address] [place] [phone] 08/11/2025 1:00 PM CDT Clinical Support Department of Palliative Care in [place], [place] [address] [place] [address] Uma Aly APRN, C.N.P., M.S.N. [address] [place] [phone] 08/13/2025 10:00 AM CDT Lab Department of Laboratory Medicine and Pathology, [facility], in [place], [place] [address] [place] [address] Jessica Rousseau M.B.B.S. [address] [place] [phone] 08/13/2025 10:30 AM CDT [facility] in [place], [place] [address] [place] [address] Jessica Rousseau M.B.B.S. [address] [place] [phone] 08/13/2025 11:00 AM CDT Nurse Only [facility] in [place], [place] [address] [place] [phone] Jessica Rousseau M.B.B.S. [address] [place] [phone] 08/13/2025 11:30 AM CDT Office Visit [facility] Trans[facility] Clinical Regeneration in [place], [place] [address] [place] [address] Jessica Rousseau M.B.B.S. [address] [place] [phone] Scheduled Referrals Name Type Priority Associated Diagnoses Order Schedule Transplant Bone marrow office visit (clinic) Outpatient Referral Routine Expected: 06/30/2025 (Approximate), Expires: 09/28/2025 Transplant Bone marrow office visit (clinic) Outpatient Referral Routine Expected: 06/30/2025 (Approximate), Expires: 09/28/2025 documented as of this encounter Results * LD (Lactate Dehydrogenase) (06/30/2025 10:41 AM CDT) [facility] Deanna LD 146 122 - 222 U/L 06/30/2025 11:58 AM CDT DTL Blood (Blood, Venous) 06/30/2025 10:41 AM CDT 06/30/2025 11:03 AM CDT Jessica Bustillos.S. LAB BLOOD NON ADD-ON Final Result [facility] 200 [place] [address], [facility] 200 [place] [address] * Sodium (06/30/2025 10:41 AM CDT) Sodium, S 141 135 - 145 mmol/L 06/30/2025 11:25 AM CDT DTL Blood (Blood, Venous) 06/30/2025 10:41 AM CDT 06/30/2025 10:51 AM CDT Jessica Bustillos.S. LAB BLOOD ADD-ON Final Res ult Performing Organization Address City/[facility]/ZIP Co de Phone Number [facility] 200 [place] [address], [facility] 200 [place] [address] * Potassium (06/30/2025 10:41 AM CDT) Potassium, S 3.6 3.6 - 5.2 mmol/L 06/30/2025 11:25 AM CDT DTL Blood (Blood, Venous) 06/30/2025 10:41 AM CDT 06/30/2025 10:51 AM CDT Jessica Bustillos.S. LAB BLOOD ADD-ON Final Res ult [facility] [address] [place] [address], [facility] 200 [place] [address] * Magnesium (06/30/2025 10:41 AM CDT) Magnesium, S 2.0 1.7 - 2.3 mg/dL 06/30/2025 11:25 AM CDT DTL Blood (Blood, Venous) 06/30/2025 10:41 AM CDT 06/30/2025 10:51 AM CDT Jessica LiconaS. LAB BLOOD ADD-ON Final Res ult Performing Organization Address City/[facility]/ZIP Co de Phone Number [facility] [address] [facility] 200 [place] [address] * (ABNORMAL) Glucose, Fasting (06/30/2025 10:41 AM CDT) Glucose, P 164(H) 70 - 100 mg/dL 06/30/2025 11:26 AM CDT DTL Last Intake 11 hr 06/30/2025 10:51 AM CDT DTL Blood (Blood, Venous) 06/30/2025 10:41 AM CDT 06/30/2025 10:51 AM CDT Jessica Bustillos.S. LAB BLOOD NON ADD-ON Final Result Performing Organization Address City/[facility] Co de Phone Number [facility] 200 [place] [address], [facility] [address] * Creatinine with Estimated GFR (06/30/2025 10:41 AM CDT) Creatinine 0.84 0.59 - 1.04 mg/dL 06/30/2025 11:25 AM CDT DTL Estimated GFR (eGFR) >90 >=60 mL/min/BSA 06/30/2025 11:25 AM CDT DTL Comment: Estimated GFR calculated using the 2020 CKD_EPI creatinine equation. Blood (Blood, Venous) 06/30/2025 10:41 AM CDT 06/30/2025 10:51 AM CDT us Jessica Barnes LAB BLOOD ADD-ON Final Res ult [facility] [address] [place] [address], [facility] DTL [facility] [address] [place] [address] * (ABNORMAL) CBC no call back, reflex [...] DowlingB.S. LAB BLOOD NON ADD-ON Final Result [facility] [address] [place], [place] [phone] [place] [address] 200 [place] [address] * Calcium, Total (06/30/2025 10:41 AM CDT) Calcium, Total, S 9.3 8.6 - 10.0 mg/dL 06/30/2025 11:25 AM CDT DTL Blood (Blood, Venous) 06/30/2025 10:41 AM CDT 06/30/2025 10:51 AM CDT Jessica DowlingB.S. LAB BLOOD ADD-ON Final Res ult Performing Organization Address [facility]/ZIP Co de Phone Number [facility] 200 [place], [place] [phone] [place] [address] 200 [place] [address] * BUN (Blood Urea Nitrogen) (06/30/2025 10:41 AM CDT) BUN (Blood Urea Nitrogen), S 12 6 - 21 mg/dL 06/30/2025 11:25 AM CDT DTL Blood (Blood, Venous) 06/30/2025 10:41 AM CDT 06/30/2025 10:51 AM CDT Jessica DowlingB.S. LAB BLOOD ADD-ON Final Res ult [facility] [address] 200 [place] [address] * ALT (Alanine Aminotransferase) (06/30/2025 10:41 AM CDT) Pathologist [facility] Alanine Aminotransferase (ALT), S 32 7 - 45 U/L 06/30/2025 11:25 AM CDT DTL Blood (Blood, Venous) 06/30/2025 10:41 AM CDT 06/30/2025 10:51 AM CDT Jessica DowlingB.S. LAB BLOOD ADD-ON Final Res ult [facility] [address] 200 [place] [address] * Alkaline Phosphatase (06/30/2025 10:41 AM CDT) Pathologist [facility] Alkaline Phosphatase, S 97 35 - 104 U/L 06/30/2025 11:25 AM CDT DTL Blood (Blood, Venous) 06/30/2025 10:41 AM CDT 06/30/2025 10:51 AM CDT Jessica DowlingB.S. LAB BLOOD ADD-ON Final Res ult [facility] [address] [place] [address] * Albumin (06/30/2025 10:41 AM CDT) Pathologist [facility] Albumin, S 4.3 3.5 - 5.0 g/dL 06/30/2025 11:25 AM CDT DTL Blood (Blood, Venous) 06/30/2025 10:41 AM CDT 06/30/2025 10:51 AM CDT Jessica DowlingB.S. LAB BLOOD ADD-ON Final Res ult Performing Organization Address City/[facility] Co de Phone Number [facility] 200 [place] [address], [facility] DTL [facility] [address] [place] [address] * Bilirubin, Total (06/30/2025 10:40 AM CDT) Bilirubin, Total, P 0.2 0.0 - 1.2 mg/dL 06/30/2025 11:22 AM CDT METH Blood (Blood, Venous) 06/30/2025 10:40 AM CDT 06/30/2025 10:51 AM CDT Jessica DowlingB.S. LAB BLOOD ADD-ON Final Res ult Performing Organization Address City/[facility] Co de Phone Number [facility] [address] [place] [address], [facility] METH [facility] [address] [place] [address] * AST (Aspartate Aminotransferase) (06/30/2025 10:40 AM CDT) Aspartate Aminotransferase (AST), P 21 8 - 43 U/L 06/30/2025 11:15 AM CDT METH Blood (Blood, Venous) 06/30/2025 10:40 AM CDT 06/30/2025 10:51 AM CDT Jessica DowlingB.S. 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 [address] [place] [phone] PCP - General Family Medicine 04/25/23 documented as of this encounter
--- OUTSIDE RECORDS SUMMARY | 2025-06-24 12:30 | XMS_ITS | Encounter Summary ---
Author Organization [facility] Address [address] [place] [address] Care Team Providers Care Die Assembler Name Role Phone Renzo Andres M.D. Primary Care Provider Reason for Visit * Reason Onset Date Comments Pre-visit Intake 06/24/2025 Encounter Details Date Type Department Care Team (Latest Contact Info) Description 06/24/2025 12:30 PM CDT Clinical Communication Virtual Review in [place], [place] 200 [place] [address] Pre-visit Intake Social History Tobacco Use Types [...] things needed for daily living? No 06/24/2025 [facility] Utilities Answer Date Recorded In the past 12 months has th e electric, gas, oil, or water company threatened to shut off services in your home? No 06/24/2025 Depression Answer Date Recor ded PHQ-9 Total Score (max 27) 2 12/10 Housing Stability Answer Date Recorded What is your living situation today? I have a [facility] place to live 06/24/2025 Education Answer Date Recorded What is the highest level of school you have completed or the highest degree you have received? Some college, no degree 04/24/2019 Comments No Sex and Gender Information Value Date Recorded Sex Assigned at Female 12/26/2018 8:37 PM HAT BLOCKER Legal Sex Female 2:43 PM HAT BLOCKER Gender Identity Female 12/26/2018 8:37 PM HAT BLOCKER Sexual Orientation Choose not to disclose 2020 3:46 PM CDT documented as of this encounter Plan of Treatment Upcoming Encounters Date Type Department Care Team (Latest Contact Info) Description 07/03/2025 8:00 AM CDT Telemedicine Department of Palliative Care in [place], [place] [address] [place] [phone] Yary Landa D.O. [address] [place] [address] 07/15/2025 9:00 AM CDT Telemedicine Pedro Fatima [facility] for Transplantation and Clinical Regeneration in [place], [place] [address] [place] [address] Jessica Rousseau M.B.B.S. [address] [place] [phone] 08/11/2025 9:00 AM CDT Nurse Only Section of Infectious Diseases in [place], [place] [address] [place] [address] Jessica Rousseau M.B.B.S. [address] [place] [phone] 08/11/2025 10:20 AM CDT Comprehensive Visit Division of Gastroenterology in [place], [place] [address] [place] [address] Jessica Rousseau M.B.B.S. [address] [place] [phone] 08/11/2025 1:00 PM CDT Clinical Support Department of Palliative Care in [place], [place] [address] [place] [address] Uma Aly APRN, C.N.P., M.S.N. [address] [place] [phone] 08/13/2025 10:00 AM CDT Lab Department of Laboratory Medicine and Pathology, [facility], in [place], [place] [address] [place] [address] Jessica Rousseau M.B.B.S. [address] [place] [phone] 08/13/2025 10:30 AM CDT [facility] in [place], [place] [address] [place] [address] Jessica Rousseau M.B.B.S. [address] [place] [address] 08/13/2025 11:00 AM CDT Nurse Only [facility] in [place], [place] [address] [place] [address] Jessica Rousseau M.B.B.S. [address] [place] [phone] 08/13/2025 11:30 AM CDT Office Visit [facility] Transplantation and Clinical Regeneration in [place], [place] [address] [place] [address] Jessica Rousseau M.B.B.S. [address] [place] [phone] documented as of this encounter Visit Diagnoses Not on filedocumented in this encounter Additional Health Concerns Infection Onset Date Last Indicated Resolved Time Protective Environment 03/02/2023 03/02/2023 Assessment Noted Time PHQ-9 Depression Total Score: 2 12/10/19 25 2:46 PM HAT BLOCKER documented as of this encounter Care Teams Die Assembler Relationship Specialty Start Date End Date Renzo Andres M.D. [address] [place] [phone] PCP - General Family Medicine 04/25/23 documented as of this encounter
--- OUTSIDE RECORDS SUMMARY | 2025-06-24 14:59 | XMS_ITS | Encounter Summary ---
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 She will proceed to CT A/P Angiogram Enterography as previously ordered with scheduling pending. Message sent to [place] [address] desk to facilitate this scheduling. Greater than 30 minutes were spent in the planning and coordination of this hospital dismissal. CDT documented in this encounter Plan of Treatment Upcoming Encounters Date Type Department Care Team (Latest Contact Info) Description 07/03/2025 8:00 AM CDT Telemedicine Department of Palliative Care in [place], [place] [address] [place] [phone] Yary Landa D.O. [address] [place] [phone] 07/15/2025 9:[address] [facility] in [place], [place] [address] [place] [phone] Jessica Rousseau M.B.B.S. [address] [place] [phone] 08/11/2025 9:00 AM CDT Nurse Only Section of Infectious Diseases in [address] [phone] Jessica Rousseau M.B.B.S. [address] [place] [phone] 08/11/2025 10:20 AM CDT Comprehensive Visit Division of Gastroenterology in [place], [place] [address] [place] [phone] Jessica Rousseau M.B.B.S. [address] [place] [phone] 08/11/2025 1:00 PM CDT Clinical Support Department of Palliative Care in [place], [place] [address] [place] [phone] Uma Aly APRN, C.NDustin, M.S.N. [address] [place] [phone] 08/13/2025 10:00 AM CDT Lab Department of Laboratory Medicine and Pathology, [facility], in [place], [place] [address] [place] [address] Jessica Rousseau M.B.B.S. [address] [place] [phone] 08/13/2025 10:30 AM CDT Office Visit [facility] in [place], [place] [address] [place] [address] Jessica Rousseau M.B.B.S. [address] [place] [phone] 08/13/2025 11:00 AM CDT Nurse Only [facility] Transplantation [facility] Clinical [facility]eneration in [place], [place] [address] [place] [address] Jessica Rousseau M.B.B.S. [address] [place] [phone] 08/13/2025 11:30 AM CDT Office Visit [facility] Transplantation and Clinical Regeneration in [place], [place] [address] [place] [phone] Jessica oRusseau M.B.B.S. [address] [place] [phone] documented as of this encounter Procedures Procedure [...] T/S HGB <8 (06/27/2025 3:50 AM CDT) [facility] Hemoglobin 10.4(L) 11.6 - 15.0 g/dL 06/27/2025 [...] 06/27/2025 3:58 AM CDT Carlee Armas APRN, Satnam.N.P., D.N.P., M.S. N. LAB BLOOD NON ADD-ON Final Result Performing Organization Address City/[facility]/ZIP Co de Phone Number [facility] [address] [place] [address] * Phosphorus Inorganic (06/27/2025 3:50 AM CDT) Phosphorus (Inorganic), S 3.2 2.5 - 4.5 mg/dL 06/27/2025 5:10 AM CDT DTL Blood (Blood, Venous) 06/27/2025 3:50 AM CDT 06/27/2025 3:58 AM CDT Carlee Armas APRN, C.N.P., D.N.P., M.S. N. LAB BLOOD ADD-ON Final Result Performing Organization Address City/[facility]/ZIP Co de Phone Number [facility] 200 [place] [address] * Magnesium (06/27/2025 3:50 AM CDT) Magnesium, S 2.0 1.7 - 2.3 mg/dL 06/27/2025 5:10 AM CDT DTL Blood (Blood, Venous) 06/27/2025 3:50 AM CDT 06/27/2025 3:58 AM CDT Carlee Armas APRN C.N.PKatalina, D.N.P., M.S. N. LAB BLOOD ADD-ON Final Result [facility] [address] [place] [address], [facility] DTL [facility][note 2] [address] [place] [address] * Comprehensive Metabolic Panel (06/27/2025 3:50 AM [...] M.S. N. LAB BLOOD ADD-ON Final Result [facility] [address] [facility] [address] [place] [address] * Surgical Pathology (06/26/2025 11:25 AM CDT) [...] third esophagus, lower thirdesophagus are five pale mje-cpay-vojepkwxd nt irregular soft tissues, ranging from 0.2-0.3 cm in greatest dimension. The specimens aresubmitted en toto in cassette C1. Grossed by AJB. D: Received in formalin labeled with the patient's name, medical record number, and colon-rectum, left colon are five pale grs-zocz-weakibuij lar soft tissues, ranging from 0.2-0.5 cm in greatest dimension. The specimens are submitted en toto in cassette D1. Grossed bySAYDAB. 07/01/2025 4:23 PM CDT DTL Disclaimer This test was developed using an analyte specific reagent. Its performance characteristics were determined by [facility] in a manner consistent with CLIA requirements. [...] Biopsy (Colon) 06/26/2025 11 :38 AM CDT us Tamara Rashid M.D. LAB SURG PATH ORDERABLES Fi nal Result [facility] [address] [place] [address], [facility] DT [address] [place] [address] * Flexible Sigmoidoscopy (06/26/2025 10:17 AM CDT) 06/26/2025 10:1 7 AM CDT Impressions [facility] - 06/26/2025 11:58 AM CDT Post-op Diagnoses: - Preparation of the colon was poor. - Stool in the rectum and in the sigmoid colon. - The rectum and sigmoid colon are normal where seen. Biopsied to rule out GVHD and CMV as requested. Narrative [facility] - 06/26/2025 11:58 AM CDT Gonda 2 GI Patient Name: Radha Martinez Date of : 1990 Age: 35 Procedure Date: 06/26/2025 Procedure: Flexible Sigmoidoscopy Providers: Tamara Rashid MD Referring Provider: Mckenzie Melvin Pre-op Diagnoses: Abdominal pain, Exclusion of xftuu-ruqenn-mhqa disease, Diarrhea Recommendation: - Return patient to [...] D.N.P., M.S.N. GI PROCEDURE ORDERABLES Final Result [facility] NA * Upper GI Endoscopy (06/26/2025 10:17 AM CDT) 06/26/2025 10:1 7 AM CDT [facility] 06/[facility]25 11:54 AM CDT Post-op Diagnoses: [...] out GVHD and CMV as requested. Narrative [facility] - 06/26/2025 11:54 AM CDT Gonda 2 GI Patient Name: Radha Martinez Date of : 1990 Age: 35 Procedure Date: 06/26/2025 Procedure: Upper GI endoscopy Providers: Tamara Rashid MD Referring Provider: Mckenzie Melvin Pre-op Diagnoses: Exclusion of vghii-qhmqzo-kkmy disease, Diarrhea, Nausea with vomiting Recommendation: - [...] D.N.P. GI PROCEDU RE ORDERABLES Final Result [facility] NA * Prothrombin Time (PT) (06/26/2025 5:24 AM CDT) Prothrombin Time, P 10.7 9.4 - 12.5 sec 06/26/2025 5:49 AM CDT DTL INR 1.0 0.9 - 1.1 06/26/2025 5:49 AM CDT DTL Comment: ----ADDITIONAL INFORMATION---- Standard intensity warfarin therapeutic range: 2.0 to 3.0 High intensity warfarin therapeutic range: 2.5 to 3.5 Blood (Blood, Venous) 06/26/2025 5:24 AM CDT 06/26/2025 5:34 AM CDT us Jamari Hill APRNNDustin LAB BLOOD ADD-ON Fin al Result [facility] [address] [place] [address], [facility] DTL [facility][note 2] [address] [place] [address] * (ABNORMAL) CBC no call back, reflex [...] C.N.P. LAB BLOOD NON ADD-ON Final Result [facility] [address] [place] [address], [place] DTL [facility][note 2] [address] [place] [address] [facility] [address] [place] [address] * (ABNORMAL) Comprehensive Metabolic Panel (06/26/2025 5:24 AM CDT) Potassium, S 4.6 3.6 - 5.2 mmol/L [...] C.N.P. LAB BLOOD ADD-ON Fin al Result [facility] 200 [place] [address], [facility] [address] [place] [address] * US Pelvis Transvaginal and Transabdominal (06/25/2025 [...] None. Findings discussed with Aditi Candelario APRN, RN STAFFING pager ([phone]) by Dr. Mcelroy 06/25/2025 at 2:09 PM. Procedure Note Marta Mcelroy M.D. - 06/25/2025 EXAM: US PELVIS TRANSVAGINAL AND TRANSABDOMINAL HISTORY: 35-year-old female with suprapubic/lower quadrant discomfort [id number]. COMPARISON: CT abdomen and pelvis 06/24/2025 TECHNIQUE: [...] None. Findings discussed with Aditi Candelario APRN, RN STAFFING pager ([phone]) by Dr. Mcelroy06/25/2025 at 2:09 PM. IMPRESSION: [...] sparing in thegallbladder fossa. us Racquel Candelario APRN C.NDustin IMG US PROCEDURES Fi nal Result * (TTE) 2D ECHO DOPPLER COLOR (06/25/2025 10:47 AM CDT) Pathologist [facility] Ejection Fraction 60 MC CV EIMS LV [...] per leftventricular function protocol. Last full echocardiogram [id number]/18/2024. LEFT VENTRICLE:Normal left ventricular chamber size. Abnormal [...] Mckenzie Melvin APRN, C.N.P., D.N.P. CV ECHO IA OCEDURES Final Result * hCG (Human Chorionic Gonadotropin), Quantitative, (06/25/2025 12:35 AM CDT) Pathologist [facility] HCG, Quantitative, , S <0.5 <5 IU/L 06/25/2025 9:57 AM CDT DTL Blood (Blood, Venous) 06/25/2025 12:35 AM CDT 06/25/2025 8:35 AM CDT Racquel Myla Candelario APRN, C.N.P. LAB BLOOD ADD-ON Fin al Result [facility] [address] [place] [address], [facility] [address] [place] [address] * Chimerism Transplant Sorted Cells (06/25/2025 12:35 AM CDT) [facility] Specimen Type Peripheral blood 06/29 4:34 PM CDT DTL Interpretation Peripheral blood, chimerism analysis: CD3-positive T-cells: The CD3-positive fraction contains approximately 90% donor DNA and approximately 10% recipient DNA. VO06-rrknsvgj myeloid cells: The FX89-ouyhlpea fraction contains approximately 100% donor DNA and [...] purity of 95% or greater. Markers analyzed: [id number], G4E1630, FGA, SE33, vWA, D21S11, X12Q5086, V96N4538, G75I886, D18S51, Z2K807, Q4J7221, CSF1PO, V1R652, Q21M281, W85R119, TPOX, S31J191, Q9J596 and [id number] 06/29/2025 4:34 PM CDT DTL Comment: ----ADDITIONAL INFORMATION---- Method summary - Chimerism: Genomic DNA was extracted and the specimen evaluated for the percentages of donor and recipient DNA using a PCR-based method that amplifies several highly polymorphic short tandem repeats (see [facility] Interpretive Handbook for method details). This test was developed and its performance characteristics determined by [facility] in a manner consistent with CLIA requirements. This test has not been cleared or approved by the U.S. Food and Drug Administration. Blood (Blood, Peripheral Draw) 06/25/2025 12:35 AM CDT 06/25/2025 6:57 AM CDT Mckenzie Melvin APRN, Satnam.N.P., D.N.P. LAB GENETI C TESTING Final Result Performing Organization Address [facility]/[place] [address] * Phosphorus Inorganic (06/25/2025 12:35 AM CDT) Pathologist [facility] Phosphorus (Inorganic), S 4.1 2.5 - 4.5 mg/dL 06/25/2025 1:31 AM CDT DTL Blood (Blood, Venous) 06/25/2025 12:35 AM CDT 06/25/2025 12:58 AM CDT Satnam Scruggs APRN.N.P., D.N.P. LAB BLOOD ADD-ON Final Result Performing Organization Address City/[facility]/ZIP Co de Phone Number [facility] [address] [place] [address], [facility] [place] [address] * Magnesium (06/25/2025 12:35 AM CDT) Magnesium, S 2.3 1.7 - 2.3 mg/dL 06/25/2025 1:31 AM CDT DTL Blood (Blood, Venous) 06/25/2025 12:35 AM CDT 06/25/2025 12:58 AM CDT Mckenzie Melvin APRN, C.N.P., D.N.P. LAB BLOOD ADD-ON Final Result [facility] [address] [place] [address], [facility] [address] [place] [address] * (ABNORMAL) Comprehensive Metabolic Panel (06/25/2025 12:35 AM CDT) Potassium, S 4.9 3.6 - [...] CDT 06/25/2025 12:58 AM CDT Mckenzie Melvin APRN, C.N.P., D.N.P. LAB BLOOD ADD-ON Final Result [facility] [address] [place] [address], [facility] [address] [place] [address] * (ABNORMAL) CBC with Differential, Blood (06/25/2025 [...] C.N.P., D.N.P. LAB BLOOD ADD-ON Final Result [facility] [address] [place] [address], [facility] DTL [facility][note 2] [address] [place] [address] DHPM [facility][note 2] [address] [place] [address] * CT Chest with IV Contrast (06/24/2025 [...] vasculature. No aggressive osseous lesions. Procedure Note Bold, Néstor Holley M.D. - 06/24/2025 EXAM: CT [...] have resolved. Mckenzie Melvin APRN, C.N.P., D.N.P. [facility] CT PRO CEDURES Final Result * CT [...] groundglass opacities from 06/05/2025 have resolved. Mckenzie L Olegario BRANTLEY, C.N.P., D.N.P. IMG CT PRO CEDURES Final Result documented in [...] 6 mg, oral, Daily, First dose on [facility] 06/25/25 at 0900, See tube feeding guidelines [...] 50 mcg, oral, Daily, First dose on Sun06/25/25 at 0900, cholecalciferol (vitamin D3) orderable was [...] Every 6 hours PRN, anxiety, Starting on [facility]ist 06/25/25 at 1513 Given 06/27/2025 2:11 AM CDT [...] Given 06/26/2025 7:18 AM CDT 40 mg [id number] nlp-LdXe-JCq-asb-C kit 1,000 mL (MoviPrep) 1,000 mL, oral, [...] Given 06/25/2025 8:35 PM CDT 1,000 mL [id number] vfm-NrFu-NOy-asb-C kit 1,000 mL (MoviPrep) 1,000 mL, oral, [...] first dose. Given 06/26/2025 5:24 AM CDT 1,000 mL penicillin V potassium tablet 500 mg [...] medical 0801 (Given - Provider: Tara Summers RFritz)2019 (Given - Provider: Carmen Rivas) 0859 (Given - Provider: Tara Summers RFritz)2104 (Given - Provider: Caryn Salazar RKatalinaNKatalina) 0833 (Given - Provider: Grisel Heath RKatalinaNKatalina) ARIPiprazole tablet 10 mg (Abilify) 10 mg, oral, Every 24 hours, First dose (after last modification) on Sun06/24/25 at 1700, Per home schedule 1606 (Given - Provider: Tara Summers RFritz) 1638 (Given - Provider: Seferino Tamayo RKatalinaNKatailna) budesonide 24 hr capsule 6 mg (Entocort [...] 50 mcg, oral, Daily, First dose on Sun06/25/25 at 0900, cholecalciferol (vitamin D3) orderable was interchanged for cholecalciferol (vitamin D3) tablet/capsule 0801 (Given - Provider: Tara Summers R.N.) [...] R.N.) 0648 (Given - Provider: Caryn Salazar RFritz)0935 (Given - Provider: Grisel Heath R.N.) DULoxetine [...] Grisel Heath R.N. - Reason: Patient/family refused) melatonin tablet 5 mg 5 mg, oral, Daily at bedtime, First dose on Sun06/24/25 at 2100 2017 (Given - Provider: Carmen Rivas) 210 (Given - Provider: Caryn Salazar RFritz) pantoprazole DR tablet 40 mg (Protonix) 40 mg, oral, 2 times daily before morning and evening meals, First dose on Sun06/24/25 at 1745, Swallow whole. Do NOT crush, chew, or split tablet. 0601 (Given - Provider: Twin BhagatSFritz, R.N.)1606 (Given - Provider: Tara Summers R.N.) 0718 (Given - Provider: Tara Summers R.N. - Comment: Pt NPO for procedure)1638 (Given - Provider: Seferino Tamayo R.N.) 0648 (Given - Provider: Caryn Salazar R.N.) [id number] agv-LxKx-JXa-asb-C kit 1,000 mL (MoviPrep) (COMPLETED)(Linked Group 1) [...] 2034 (Given - Provider: Jaclyn Robertson RKatalinaNKatalina) wjc1319-vxw lbz-TwJs-JUo-asb-C kit 1,000 mL (MoviPrep) (COMPLETED)(Linked Group 1) [...] colonoscopy. Use container supplied with first dose. 523 (Given - Provider: Carmen Rivas) penicillin V potassium tablet 500 mg (Veetids) 500 mg, oral, 2 times daily, First dose on Sun06/24/25 at 2100, Drug Monitoring Program: Pharmacist to adjust medication dosing based on indication and drug clearance factors., Indications: Prophylaxis, medical 08 (Given - Provider: Tara Summers R.N.)2018 (Given - Provider: Carmen Rivas) 08 (Given - Provider: Tara Summers RFritz)2103 (Given - Provider: Caryn Salazar RKatalinaNKatalina) 0833 (Given - Provider: Grisel Heath RKatalinaNKatalina) posaconazole DR tablet 300 mg (NoxafiL) 300 [...] 1423 (Not Given - Provider: Seferino Tamayo R.N. - Reason: Order parameters not met [...] Pain 0756 (Given - Provider: Tara Summers RFritz)1326 (Given - Provider: Mariana Charles RKatalinaNKatalina) 0532 (Given - Provider: Carmen Rivas)2104 (Given - Provider: Caryn Salazar R.N.) 0211 (Given - Provider: Caryn Salazar R.N.) hydrOXYzine tablet 25 mg (Atarax) 25 mg, oral, Every 6 hours PRN, anxiety, Starting on Tigist 06/25/25 at 1513 0211 (Given - Provider: Caryn Salazar R.N.) ibuprofen tablet 400 mg 400 mg, oral, Every 6 hours PRN, moderate pain or score 4-6 of 10, Starting on Sun06/24/25 at 1503, Take with food or milk if GI disturbances occur with use. 0744 (Given - Provider: Tara Summers RFritz) loperamide capsule 2 mg (Imodium A-D) 2 [...] % injection Linked Groups Order Group 1: [id number] mnu-FeOf-NRo-asb-C kit 1,000 mL (MoviPrep) (COMPLETED)Jump to med [...] use for the second dose. Followed by [id number] cdj-QmBf-XKc-asb-C kit 1,000 mL (MoviPrep) (COMPLETED)Jump to med [...] Total Score: 2 12/10/19 25 2:46 PM TOWEL STRETCHER documented as of this encounter Care Teams Utilities Service Investigator Relationship Specialty Start Date End Date Renzo Andres M.D. [address] [place], [place] [address] [address] PCP - General Family Medicine 04/25/23 documented as of this encounter
--- OUTSIDE RECORDS SUMMARY | 2025-06-26 10:20 | XMS_ITS | Encounter Summary ---
Author Organization [facility] Address [address] [place] [address] Care Team Providers Care Learning Program Manager Name Role Phone Renzo Andres M.D. Primary Care Provider [phone] Encounter Details Date Type Department Care Team [...] things needed for daily living? No 06/24/2025 [facility] Utilities Answer Date Recorded In the past 12 months has th [employer] electric, gas, oil, or water company threatened to shut off services in your home? No 06/24/2025 Depression Answer Date Recor ded PHQ-9 Total Score (max 27) 2 12/10 Housing Stability Answer Date Recorded What is your living situation today? I have a [facility] place to live 06/24/2025 Education Answer Date Recorded What is the highest level of school you have completed or the highest degree you have received? Some college, no degree 04/24/2019 Comments No Sex and Gender Information Value Date Recorded Sex Assigned at Female 12/26/2018 8:37 PM UTILITY LOCATE TECHNICIAN Legal Sex Female 2:43 PM UTILITY LOCATE TECHNICIAN Gender Identity Female 12/26/2018 8:37 PM UTILITY LOCATE TECHNICIAN Sexual Orientation Choose not to disclose 2020 3:46 PM CDT documented as of this encounter Plan of Treatment Upcoming Encounters Date Type Department Care Team (Latest Contact Info) Description 07/03/2025 8:00 AM CDT Telemedicine Department of Palliative Care in [place], [place] [address] [place] [phone] Yary Landa D.O. [address] [place] [phone] 07/15/2025 9:00 AM CDT [facility] in [place], [place] [address] [place] [phone] Jessica Rousseau M.B.B.S. [address] [place] [phone] 08/11/2025 9:00 AM CDT Nurse Only Section of Infectious Diseases in [place], [place] [address] [place] [phone] Jessica Rousseau M.B.B.S. [address] [place] [phone] 08/11/2025 10:20 AM CDT Comprehensive Visit Division of Gastroenterology in [place], [place] [address] [place] [phone] Jessica Rousseau M.B.B.S. [address] [place] [phone] 08/11/2025 1:00 PM CDT Clinical Support Department of Palliative Care in [place], [place] [address] [place] [phone] Uma Aly APRN, C.N.P., M.S.N. [address] [place] [phone] 08/13/2025 10:00 AM CDT Lab Department of Laboratory Medicine and Pathology, [facility], in [place], [place] [address] [place] [phone] Jessica Rousseau M.B.B.S. [address] [place] [phone] 08/13/2025 10:30 AM CDT [facility] in [place], [place] [address] [place] [phone] Jessica Rousseau M.B.B.S. [address] [place] [phone] 08/13/2025 11:00 AM CDT Nurse Only Pedro Lanza laura [facility] Transplantation and Clinical Regeneration in [place], [place] [address] [place] [address] Jessica Rousseau M.B.B.S. [address] [place] [phone] 08/13/2025 11:30 AM CDT Office Visit Pedro Lanza laura [facility] Transplantation and Clinical Regeneration in [place], [place] [address] [place] [address] Jessica Rousseau M.B.B.S. [address] [place] [phone] documented as of this encounter Procedures Procedure [...] Total Score: 2 12/10/19 25 2:46 PM UTILITY LOCATE TECHNICIAN documented as of this encounter Care Teams Learning Program Manager Relationship Specialty Start Date End Date Renzo Andres M.D. [address] [place] [address] [place] [phone] PCP - General Family Medicine 04/25/23 documented as of this encounter
--- OUTSIDE RECORDS SUMMARY | 2025-06-26 11:10 | XMS_ITS | Encounter Summary ---
Author Organization [facility] Address [address] [place] [phone] Care Team Providers Care Maintenance And Operations Supervisor Name Role Phone Renzo Andres M.D. Primary Care Provider Encounter Details Date Type Department Care Team (Latest Contact Info) Description 06/26/2025 11:10 AM CDT Anesthesia Event Division of Gastroenterology in [place], [place] [address] [place] [phone] Satya Lozada APRN, CRNA, DNAP [address] [place] [phone] Kiara Gaines M.D. [address] [place] [phone] Anesthesia Record Procedure Summary Procedure Name Responsible Anesthesiologist Anesthesia Start Time Anesthesia Stop Time EGD (ESOPHAGOGASTRODUOD ENOSCOPY) Satya Lozada APRN, CRNA, DNAP 06/26/25 1110 06/26/25 1148 Events Date Time Event Comment 06/26/2025 1110 An Start Machine/Equipme nt Checked Infection Precautions Followed Procedure/Site Verified NPO Status Verified Supine Standard ASA Monitors Applied 1115 Turnover to Proceduralist 1120 Proc Start 1141 Turnover to ANE Staff 1141 Proc Fin 1142 an stop data 1148 An End I completed my handoff to [...] mcg/mL 100 mcg lidocaine 2% (mg) injection 30 mg ondansetron PF 4 mg/2 mL injection 4 mg propofol 10 mg/mL injection 80 mg propofol 10 mg/mL infusion 305.45 mg Lactated Ringers Free Drip 500 mL * Agents No agents on file. * Blood No blood administrations on file. Lines, Drains, and Airways Type Details Placement Removal Wound 06/15/25; 951; N; Incision; Back; Left, Lower, Medial 06/15/25 0952 by Kevin Villa, R.N. Peripheral IV Placement Date: 05/13; Placement Time: 1636; Catheter Size: 20 G; Orientation: Anterior, Left, Lower; Location: Forearm; Site Prep: Chlorhexidine (Preferred); Technique: Transillumination; Inserted by: tt; Insertion Attempts: 1; Removal Date: 06/27/25; Removal Time: 1151; Removal Reason: Patient discharged 06/24/25 1636 by Yana Norman, R.N. 06/27/25 1151 by Grisel Heath, R.N. documented in this encounter Social History Tobacco [...] things needed for daily living? No 06/24/2025 [facility] [...] have a [place] [place] place to live 06/24/2025 Education Answer Date Recorded What is the highest level of school you have completed or the highest degree you have received? Some college, no degree 04/24/2019 Comments No Sex and Gender Information Value Date Recorded Sex Assigned at Female 12/26/2018 8:37 PM TALLOW MAKER Legal Sex Female 2:43 PM TALLOW MAKER Gender Identity Female 12/26/2018 8:37 PM TALLOW MAKER Sexual Orientation Choose not to disclose 2020 3:46 PM CDT documented as of this encounter OR Notes * Anesthesia Postprocedure Evaluation - Satya Lozada APRN, TANA, DNAP - 06/26/2025 11:48 AM CDT Patient: Radha Martinez Procedure Summary Date: 06/26/25 Room / Location: Division of Gastroenterology in [place], [place] Anesthesia Start: 1110 Anesthesia Stop: 1148 Procedures: EGD (ESOPHAGOGASTRODUODENOSCOPY) FLEXIBLE SIGMOIDOSCOPY Diagnosis: Scheduled Providers: Satya Lozada APRN, TANA, DNAP; Tamara Rashid M.D. Responsible Provider: Satya Lozada APRN, CRNA, DNAP Anesthesia Type: MAC ASA Status: 3 Anesthesia Type: MAC Last vitals Vitals Value Taken Time BP Temp Pulse Resp SpO2 Please reference Vitals flowsheet for most recent vital signs. Anesthesia Post Evaluation Patient Disposition: general care unit Cardiovascular status: hemodynamics (HR & BP) acceptable Respiratory status: patent airway with spontaneous effort Temperature: normothermic Oxygen requirements: room air Level of consciousness: awake Pain score: pain adequately controlled and/or at baseline Post Op nausea/vomiting: none Notable Events No notable events documented. * Anesthesia Preprocedure Evaluation - Kiara Gaines M.D. - 06/26/2025 11:09 AM CDT Preprocedure Anesthesia & H&P Assessment Procedure Summary Date/Time: 06/26/25 1030 Scheduled providers: Satya Lozada APRN, CRNA, DNAP; Tamara Rashid M.D. Procedures: EGD (ESOPHAGOGASTRODUODENOSCOPY) FLEXIBLE SIGMOIDOSCOPY Location: Division of Gastroenterology in [place], [place] Pertinent components of the patient's history including current problem list, medical history, surgical history, family history, social history, medications and allergies were reviewed. Present illness and pre-op diagnosis were confirmed. The planned surgery / procedure was verified with the patient / legal guardian. The patient's general health condition remains unchanged RELEVANT COMORBID CONDITIONS PSYCH (+) Depression Major Recurrent Moderate (HCC) Nervous (+) Abdominal Pain Hematologic (+) Leukemia Myeloid Chronic BCR/ABL Positive Not Having Achieved Remission (HCC) Other (+) Transplant Stem Cell (HCC) OBJECTIVE PHYSICAL EXAMINATION Airway (HEENT) Mallampati: III TM Distance: >3 FB Neck ROM: Full Mouth Opening: >3 cm Upper Lip Bite Test Class: I Cardiovascular Rhythm: Regular Rate: Normal Cardiovascular Assessment: cardiovascular normal Pulmonary Pulmonary Assessment: Clear General / Constitutional Constitutional Assessment: Normal General State of Health:: healthy appearing and calm Neurological Neurologic Assessment: alert and alert and oriented x 3 Dental Dental Assessment: dentition intact ASSESSMENT / PLAN ANESTHESIA PLAN ASA: 3 Anesthesia Plan: MAC Patient seen and allergies reviewed, anesthesia plan and risks discussed directly with patient /legal guardian or through an watch crystal cutter. The use of blood products not discussed Approval to Proceed: approved for anesthesia documented in this encounter Plan of Treatment Upcoming Encounters Date Type Department Care Team (Latest Contact Info) Description 07/03/2025 8:00 AM CDT Telemedicine Department of Palliative Care in [place], [place] [address] [place] [phone] Yary Landa D.O. [address] [place] [phone] 07/15/2025 9:00 AM CDT Telemedicine [facility] for Transplantation and Clinical Regeneration in [place], [place] [address] [place] [phone] Jessica Rousseau M.B.B.S. [address] [place] [phone] 08/11/2025 9:00 AM CDT Nurse Only Section of Infectious Diseases in [place], [place] [address] [place] [phone] Jessica Rousseau M.B.B.S. [address] [place] [phone] 08/11/2025 10:20 AM CDT Comprehensive Visit Division of Gastroenterology in [place], [place] [address] [place] [phone] Jessica Rousseau M.B.B.S. [address] [place] [phone] 08/11/2025 1:00 PM CDT Clinical Support Department of Palliative Care in [place], [place] [address] [place] [phone] Uma Aly APRN, C.N.P., M.S.N. [address] [place] [phone] 08/13/2025 10:00 AM CDT Lab Department of Laboratory Medicine and Pathology, [facility], in [place], [place] [address] [place] [phone] Jessica Rousseau M.B.B.S. [address] [place] [phone] 08/13/2025 10:30 AM CDT Office Visit [facility] [place] for Transplantation and Clinical Regeneration in [place], [place] [address] [place] [phone] Jessica Rousseau M.B.B.S. [address] [place] [phone] 08/13/2025 11:00 AM CDT Nurse Only [facility] Transplantation and Clinical Regeneration in [place], [place] [address] [place] [phone] Jessica Rousseau M.B.B.S. [address] [place] [phone] 08/13/2025 11:30 AM CDT Office Visit [facility] Transplantation and Clinical Regeneration in [place], [place] [address] [place] [phone] Jessica Rousseau M.B.B.S. [address] [place] [phone] documented as of this encounter Visit Diagnoses Not on filedocumented in this encounter Administered Medications Inactive Administered Medications - up to 3 most recent administrations Medication Order MAR Action Action Date Dose Rate Site fentaNYL injection (Sublimaze) intravenous, As needed, Starting on Sun06/26/25 at 1115, Anesthesia Intra-op Given 06/26/2025 11:17 AM CDT 50 mcg Given 06/26/2025 11:15 AM CDT 50 mcg Lactated Ringer's intravenous, Continuous Infusion: Per Instructions PRN, Starting on Sun06/26/25 at 1113, Anesthesia Intra-op New Bag 06/26/2025 11:13 AM CDT lidocaine (PF) (cardiac) injection intravenous, As needed, Starting on Sun06/26/25 at 1115, Anesthesia Intra-op Given 06/26/2025 11:15 AM CDT 30 mg ondansetron (PF) injection (Zofran) intravenous, As needed, Starting on Sun06/26/25 at 1115, Anesthesia Intra-op Given 06/26/2025 11:15 AM CDT 4 mg propofol 10 mg/mL infusion (Diprivan) intravenous, Continuous Infusion: Per Instructions PRN, Starting on Sun06/26/25 at 1115, Anesthesia Intra-op Rate/Dose Change 06/26/2025 11:36 AM CDT 100 mcg/kg/min 61.5 mL/hr Rate/Dose Change 06/26/2025 11:17 AM CDT 120 mcg/kg/min 73 .8 mL/hr New Bag 06/26/2025 11:15 AM CDT 100 mcg/kg/min 61.5 mL/ hr propofoL injection (Diprivan) intravenous, As needed, Starting on Sun06/26/25 at 1115, Anesthesia Intra-op Given 06/26/2025 11:20 AM CDT 25 mg Given 06/26/2025 11:17 AM CDT 25 mg Given 06/26/2025 11:15 AM CDT 30 mg documented in this encounter Additional Health Concerns Infection Onset Date Last Indicated Resolved Time Protective Environment 03/02/2023 03/02/2023 Assessment Noted Time PHQ-9 Depression Total Score: 2 12/10/19 25 2:46 PM TALLOW MAKER documented as of this encounter Care Teams Maintenance And Operations Supervisor Relationship Specialty Start Date End Date Renzo Andres M.D. [address] [place] [phone] PCP - General Family Medicine 04/25/23 documented as of this encounter
--- OUTSIDE RECORDS SUMMARY | 2025-06-30 11:00 | XMS_ITS | Encounter Summary ---
Author Organization [facility] Address [address] [place] [address] Care Team Providers Care Store Sales Leader Name Role Phone Renzo Andres M.D. 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 [address] [place] [address] Phone: tel: fax: [facility] Referral ID Status Reason Start Date Expiration Date V isits Requested Visits Authorized [id number] Authorized 06/30/2025 12/30/2026 1 1 Scheduling Instructions Please schedule with pharmacist for 30 minutes. 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 [address] [place] [phone] Phone: tel: fax: [facility] Referral ID Status Reason Start Date Expiration Date V isits Requested Visits Authorized [id number] Authorized 06/30/2025 12/30/2026 1 1 Scheduling Instructions Please schedule with BMT MD for 30 minutes. 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 [address] [place] [phone] Phone: tel: fax: [facility] Referral ID Status Reason Start Date Expiration Date V isits Requested Visits Authorized [id number] Authorized 06/30/2025 12/30/2026 1 1 Scheduling Instructions Please schedule with RNCC for 30 min Patient type: Allo Over 100 Visit Type: Return Scheduling Preferences Option 1: MD/RN no joint visit Option 2: ANUPAM/RN joint visit Other Scheduling Instructions: Primary MD: Soham RN Team: Rst Bmt Team Two [place] Reason for Visit * Reason Comments Nurse Visit * Transplant (Routine) - Closed Specialty Diagnoses / Procedures Referred By Contac t Referred To Contact Transplant Jessica Rousseau M.B.B.S. [address] [place] [phone] Phone: tel: fax: [facility] Referral ID Status Reason Start Date Expiration Date Visits Re quested Visits Authorized [id number] Closed 06/23/2025 12/23/2026 1 1 Encounter Details Date Type Department Care Team (Late st Contact Info) Description 06/30/2025 11:00 AM CDT Nurse Only Pedro Fatima Counsel[facility] for Transplantation and Clinical Regeneration in [place], [place] [address] [place] [address] Jessica Rousseau M.B.B.S. [address] [place] [phone] Haven Ramirez R.N. [address] [place] [phone] Nurse Visit Social History Tobacco Use Types [...] things needed for daily living? No 06/24/2025 [facility] Utilities Answer Date Recorded In the past 12 months has th e electric, gas, oil, or water company threatened to shut off services in your home? No 06/24/2025 Depression Answer Date Recor ded PHQ-9 Total Score (max 27) 2 12/10 Housing Stability Answer Date Recorded What is your living situation today? I have a [facility] place to live 06/24/2025 Education Answer Date Recorded What is the highest level of school you have completed or the highest degree you have received? Some college, no degree 04/24/2019 Comments No Sex and Gender Information Value Date Recorded Sex Assigned at Female 12/26/2018 8:37 PM SEASONAL CUSTOMER SERVICE ASSOCIATE Legal Sex Female 2:43 PM SEASONAL CUSTOMER SERVICE ASSOCIATE Gender Identity Female 12/26/2018 8:37 PM SEASONAL CUSTOMER SERVICE ASSOCIATE Sexual Orientation Choose not to disclose [...] CDT Telemedicine Department of Palliative Care in [place], [place] [address] [place] [phone] Yary Landa D.O. [address] [place] [phone] 07/15/2025 9:00 AM CDT Telemedicine [facility] in [place], [place] [address] [place] [phone] Jessica Rousseau M.B.B.S. [address] [place] [phone] 08/11/2025 9:00 AM CDT Nurse Only Section of Infectious Diseases in [place], [place] [address] [place] [phone] Jessica Rousseau M.B.B.S. [address] [place] [phone] 08/11/2025 10:20 AM CDT Comprehensive Visit Division of Gastroenterology in [place], [place] [address] [place] [address] Jessica Rousseau M.B.B.S. [address] [place] [phone] 08/11/2025 1:00 PM CDT Clinical Support Department of Palliative Care in [place], [place] [address] [place] [phone] Uma Aly APRN, C.N.P., M.S.N. [address] [place] [phone] 08/13/2025 10:00 AM CDT Lab Department of Laboratory Medicine and Pathology, [facility], in [place], [place] [address] [place] [phone] Jessica Rousseau M.B.B.S. [address] [place] [phone] 08/13/2025 10:30 AM CDT Office Visit Pedro sanchez [facility] Transplantation and Clinical Regeneration in [place], [place] [address] [place] [address] Jessica Rousseau M.B.B.S. [address] [place] [phone] 08/13/2025 11:00 AM CDT [facility] in [place], [place] [address] [place] [address] Jessica Rousseau M.B.B.S. [address] [place] [phone] 08/13/2025 11:30 AM CDT Office Visit [facility] Transplantation and Clinical Regeneration in [place], [place] [address] [place] [phone] Jessica Rousseau M.B.B.S. [address] [place] [phone] Scheduled Orders Name Type Priority Associated Diagnoses [...] Expires: 11/09/2025 BCR/ABL1, p210, mRNA Detection, Reverse Propagation Worker-PCR (RT-PCR), Quantitative, Monitoring Chronic Myeloid Leukemia (CML) [...] Total Score: 2 12/10/19 25 2:46 PM SEASONAL CUSTOMER SERVICE ASSOCIATE documented as of this encounter Care Teams Store Sales Leader Relationship Specialty Start Date End Date Renzo Andres M.D. [address] [place] [phone] PCP - General Family Medicine 04/25/23 documented as of this encounter
--- OUTSIDE RECORDS SUMMARY | 2025-06-30 11:30 | XMS_ITS | Encounter Summary ---
Author Organization [facility] Address [address] [place] [address] Care Team Providers Care Marking Machine Operator Name Role Phone Renzo Andres M.D. Primary Care Provider Reason for Visit * Transplant (Routine) - Closed Specialty Diagnoses / Procedures Referred By Estefania t Referred To Contact Transplant Jessica Rousseau M.B.B.S. [address] [place] [phone] Phone: tel: fax: [facility] Referral ID Status Reason Start Date Expiration Date Visits Re quested Visits Authorized [id number] Closed 06/23/2025 12/23/2026 1 1 Encounter Details Date Type Department Care Team (Latest Contact Info) Description 06/30/2025 11:30 AM CDT Office Visit Pedro Fatima [place] for Transplantation and Clinical Regeneration in [place], [place] [address] [place] [phone] Jessica Rousseau M.B.B.S. [address] [place] [phone] Transplant Bone Marrow Allogeneic (HCC) (Primary Dx) [...] [facility] to [facility] 06/24/2025 Education Answer Date Recorded What is the highest level of school you have completed or the highest degree you have received? Some college, no degree 04/24/2019 Comments No Sex and Gender Information Value Date Recorded Sex Assigned at Female 12/26/2018 8:37 PM SHAKER SCREEN OPERATOR Legal Sex Female 2:43 PM SHAKER SCREEN OPERATOR Gender Identity Female 12/26/2018 8:37 PM SHAKER SCREEN OPERATOR Sexual Orientation Choose not to disclose 2020 3:46 PM CDT documented as of this encounter Progress Notes * Jessica Rousseau M.B.BKatalinaS. - 06/30/2025 11:30 AM CDT SUBJECTIVE TRANSPLANT PHYSICIAN Dr. Jessica Rousseau, pager [phone]. HISTORY OF PRESENT ILLNESS Radha Martinez is [...] reticulin fibrosis noted. The cytogenetics identified a [place] chromosome in 20 metaphases. The BCR-ABL1 P [...] t(9;22) metaphases. NGS is positive for ASXL1 p.Krz356Poqka*12 (20%) and p.Pyp675* (3%). 06/17/2024: feeling quite symptomatic since the [...] prophylaxis: Ursodiol 600 mg two times daily. [facility] ID Number: [id number] [...] right eye. Wears glasses. - Followed by [facility] in [place], [place]. - Patient will notify team if any vision changes. # Blood Products # TACO - Requires infusion of platelets at a slower rate #CMV- last checked 06/03/2025 #EBV - last checked March 2025 Activity: PAMP Level 4 (walks frequently) VTE Prophylaxis: Enoxaparin 40 mg subcutaneous once daily Blood Transfusions: Patient signed [id number] on 11/03/2024. Surrogate Decision Maker: Significant Other, [...] CDT Telemedicine Department of Palliative Care in [place], [place] [address] [place] [phone] Yary Landa D.O. [address] [place] [phone] 07/15/2025 9:00 AM CDT [facility] in [place], [place] [address] [place] [phone] Jessica Rousseau M.B.B.S. [address] [place] [phone] 08/11/2025 9:00 AM CDT Nurse Only Section of Infectious Diseases in [place], [place] [address] [place] [phone] Jessica Rousseau M.B.B.S. [address] [place] [phone] 08/11/2025 10:20 AM CDT Comprehensive Visit Division of Gastroenterology in [place], [place] [address] [place] [phone] Jessica Rousseau M.B.B.S. [address] [place] [phone] 08/11/2025 1:00 PM CDT Clinical Support Department of Palliative Care in [place], [place] [address] [place] [phone] Uma Aly APRN, C.N.P., M.S.N. [address] [place] [phone] 08/13/2025 10:00 AM CDT Lab Department of Laboratory Medicine and Pathology, [facility], in [place], [place] [address] [place] [phone] Jessica Rousseau M.B.B.S. [address] [place] [phone] 08/13/2025 10:30 AM CDT Office Visit Pedro sanchez [facility] for Transplantation and Clinical Regeneration in [place], [place] [address] [place] [phone] Jessica Rousseau M.B.B.S. [address] [place] [phone] 08/13/2025 11:00 AM CDT Nurse Only [facility] Transplantation and Clinical Regeneration in [place], [place] [address] [place] [phone] Jessica Rousseau M.B.B.S. [address] [place] [phone] 08/13/2025 11:30 AM CDT Office Visit [facility] Transplantation and Clinical Regeneration in [place], [place] [address] [place] [phone] Jessica Rousseau M.B.B.S. [address] [place] [phone] documented as of this encounter Results * Lactate (06/30/2025 1:12 PM CDT) Lactate, P 1.4 0.5 - 2.2 mmol/L 06/30/2025 2:09 PM CDT DTL Blood (Blood, Venous) 06/30/2025 1:12 PM CDT 06/30/2025 1:19 PM CDT Jessica DowlingB.SKatalina LAB BLOOD NON ADD-ON Final Result [facility] [address] [place] [address], [facility] DTL [facility] [address] [place] [address] documented in this encounter Visit Diagnoses Diagnosis Transplant Bone Marrow Allogeneic (HCC)- Primary documented in this encounter Additional Health Concerns Infection Onset Date Last Indicated Resolved Time Protective Environment 03/02/2023 03/02/2023 Assessment Noted Time PHQ-9 Depression Total Score: 2 12/10/19 25 2:46 PM SHAKER SCREEN OPERATOR documented as of this encounter Care Teams Marking Machine Operator Relationship Specialty Start Date End Date eRnzo Andres M.D. [address] [place] [phone] PCP - General Family Medicine 04/25/23 documented as of this encounter
--- OUTSIDE RECORDS SUMMARY | 2025-06-30 12:34 | XMS_ITS | Encounter Summary ---
Author Organization [facility] Address [address] [place] [address] Care Team Providers Care Thermocouple Tester Name Role Phone Renzo Andres M.D. Primary Care Provider [phone] Reason for Referral * Specialty Diagnoses / Procedures Referred By Estefania acosta Referred To Contact [facility]ST [facility] [address] [place] [address] Phone: tel: [facility] Referral ID Status Reason Start Date Expiration Date Visits Re quested Visits Authorized Encounter Details Date Type Department Care Team (Latest Contact Info) Description 06/30/2025 12:34 PM CDT - 06/30/2025 1:43 PM CDT Hospital Encounter [facility], [facility], Ninth Floor [address] [place] [phone] Mckenzie Melvin APRN, C.N.P., D.N.P. [address] [place] [phone] Leukemia Myeloid Chronic BCR/ABL Positive Not Having [...] a [facility] place [facility] live 06/24/2025 Education Answer Date Recorded What is the highest level of school you have completed or the highest degree you have received? 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 60 tablet 11 04/15/2025 ARIPiprazole (Abilify) 10 mg tablet Take 1 tablet (10 mg total) by mouth daily. Dose change 12/02/2024 30 tablet 5 04/15/2025 budesonide (Entocort EC) [address] capsule Take 2 capsules (6 mg total) by mouth daily. 60 capsule 2 06/28/2025 buprenorphine (Butrans) 5 mcg/hourIndications :Chronic Pain/Nonacute Pain Place 1 patch on the skin once a week Indication: Chronic Pain/Nonacute Pain. 4 patch 06/19/2025 cholecalciferol (Vitamin D3) 50 mcg (2,000 Unit) tablet Take 50 mcg by mouth daily. cyclobenzaprine (FlexeriL) 5 mg tabletIndications:T ransplant Stem Cell (HCC),Pain Neuropathic,Leukemi a Myeloid Chronic BCR/ABL Positive Remission ([facility]) Take 1 tablet (5 mg total) by mouth 2 (two) times a day as needed for muscle spasms. 5 tablet 06/29/2025 diphenhydrAMINE (BenadryL) 25 mg capsule Take 1 [...] day for 7 days. 140 mL 06/27/2025 ondansetron ODT (Zofran-ODT) 4 mg disintegrating tablet [...] by mouth daily. 60 tablet 1 05/13/2025 prochlorperazine (Compazine) 10 mg tablet Take 1 tablet (10 mg total) by mouth every 6 (six) hours as needed for nausea. 30 tablet 1 05/20/2025 documented as of this encounter Plan of Treatment Upcoming Encounters Date Type Department Care Team (Latest Contact Info) Description 07/03/2025 8:00 AM CDT Telemedicine Department of Palliative Care in [place], [place] [address] [place] [phone] Yary Landa D.O. [address] [place] [phone] 07/15/2025 9:00 AM CDT Telemedicine Pedro sanchez [facility] for Transplantation and Clinical Regeneration in [place], [place] [address] [place] [phone] Jessica Rousseau M.B.B.S. [address] [place] [phone] 08/11/2025 9:00 AM CDT Nurse Only Section of Infectious Diseases in [place], [place] [address] [place] [address] Jessica Rousseau M.B.B.S. [address] [place] [phone] 08/11/2025 10:20 AM CDT Comprehensive Visit Division of Gastroenterology in [place], [place] [address] [place] [phone] Jessica Rousseau M.B.B.S. [address] [place] [phone] 08/11/2025 1:00 PM CDT Clinical Support Department of Palliative Care in [place], [place] [address] [place] [address] Uma Aly APRN, C.N.P., M.S.N. [address] [place] [phone] 08/13/2025 10:00 AM CDT Lab Department of Laboratory Medicine and Pathology, [facility], in [place], [place] [address] [place] [phone] Jessica Rousseau M.B.B.S. [address] [place] [phone] 08/13/2025 10:30 AM CDT [facility] in [place], [place] [address] [place] [address] Jessica Rousseau M.B.B.S. [address] [place] [phone] 08/13/2025 11:00 AM CDT Nurse Only [facility] in [place], [place] [address] [place] [phone] Jessica Rousseau M.B.B.S. [address] [place] [phone] 08/13/2025 11:30 AM CDT [facility] in [place], [place] [address] [place] [phone] Jessica Rousseau M.B.B.S. [address] [place] [phone] Scheduled Referrals Name Type Priority Associated Diagnoses [...] ADD-ON Final Res ult Performing Organization Address [facility] Co de Phone Number [facility] [address] [place] [address], [facility] [address] [place] [address] * Lipase (06/30/2025 1:12 PM CDT) Pathologist [facility] Lipase, S 18 13 - 60 U/L 06/30/2025 2: 24 PM CDT DTL Blood (Blood, Venous) 06/30/2025 1:12 PM CDT 06/30/2025 1:19 PM CDT Jessica Bustillos.S. LAB BLOOD ADD-ON Final Res ult Performing Organization Address [facility] Co de Phone Number [facility] [address] [place], [place] [phone] [place] [address] [address] [place] [address] * Lactate (06/30/2025 1:12 PM CDT) Pathologist [facility] Lactate, P 1.4 0.5 - 2.2 mmol/L 06/30/2025 2:09 PM CDT DTL Blood (Blood, Venous) 06/30/2025 1:12 PM CDT 06/30/2025 1:19 PM CDT Jessica LiconaS. LAB BLOOD NON ADD-ON Final Result Performing Organization Address City/[facility] Co de Phone Number [facility] [address] [place] [address], [facility] [address] [place] [address] documented in this encounter Visit Diagnoses Diagnosis [...] Total Score: 2 12/10/19 25 2:46 PM MIDLEVEL PROVIDER documented as of this encounter Care Teams Thermocouple Tester Relationship Specialty Start Date End Date Renzo Andres M.D. [address] [place] [address] [place] [phone] PCP - General Family Medicine 04/25/23 documented as of this encounter
--- OUTSIDE RECORDS SUMMARY | 2025-06-30 13:44 | XMS_ITS | Encounter Summary ---
Author Organization [facility] Address [address] [place] [address] Care Team Providers Care Baseball Glove Stuffer Name Role Phone Renzo Andres M.D. Primary [...] Armas APRN, C.N.P., D.N.P., M.S.N. [address] [place] [address] Phone: tel: fax: [facility] Referral ID Status Reason Start Date Expiration Date Visits Re quested Visits Authorized [id number] Closed 06/27/2025 09/27/2026 1 1 CDT Reason for Visit * MRI/CAT/PET Scan (Routine) - Closed Specialty Diagnoses / Procedures Referred By Estefania acosta Referred To Contact Radiology Diagnoses Transplant Stem Cell (HCC) Transplant Bone Marrow Allogeneic (HCC) Procedures CT Abdomen Pelvis Enterography with IV Contrast CT Abdomen Pelvis Angiogram Enterography with IV Contrast Carlee Armas APRN, C.N.P., Heaven.N.P., M.S.N. 200 [place] [address] Phone: tel: fax: [facility] Referral ID Status Reason Start Date Expiration Date Visits Re quested Visits Authorized [id number] Closed 06/27/2025 09/27/2026 1 1 Encounter Details Date Type Department Care Team (Latest Contact Info) Description 06/30/2025 1:44 PM CDT - 06/30/2025 4:14 PM CDT Hospital Encounter Department of Radiology, [facility], in [place], [place] 200 [place] [address] Carlee Armas APRN, C.N.P., Heaven.N.P., M.S.N. [address] [place] [phone] Transplant Stem Cell (HCC); Transplant Bone Marrow [...] In the past 12 months has th [employer], gas, oil, or water company threatened to shut off services in your home? No 06/24/2025 Depression Answer Date Recor ded PHQ-9 Total Score (max 27) 2 12/10 Housing Stability Answer Date Recorded What is your living situation today? I have a [facility] place to live 06/24/2025 Education Answer Date Recorded What is the highest level of school you have completed or the highest degree you have received? Some college, no degree 04/24/2019 Comments No Sex and Gender Information Value Date Recorded Sex Assigned at Female 12/26/2018 8:37 PM [employer] Legal Sex Female 2:43 PM [employer] Gender Identity Female 12/26/2018 8:37 PM [employer]SEM[employer] Sexual Orientation Choose not to disclose 2020 [...] (Atarax) 25 mg tabletIndications:T ransplant Stem Cell ([facility]),Transplant Bone Marrow Allogeneic ([facility]),Leukemia Myeloid Chronic BCR/ABL Positive Remission (HCC),Abdominal Pain [...] 05/20/2025 5 documented as of this encounter Nursing Notes * Alice Turner, R.N. - 06/30/2025 3:00 PM CDT Enterography [...] Telemedicine Department of Palliative Care in [place], [place] [address] [place] [address] Yary Landa D.O. [address] [place] [phone] 07/15/2025 9:00 AM CDT Telemedicine [facility] for Transplantation and Clinical Regeneration in [place], [place] [address] [place] [address] Jessica Rousseau M.B.B.S. [address] [place] [phone] 08/11/2025 9:00 AM CDT Nurse Only Section of Infectious Diseases in [place], [place] [address] [place] [address] Jessica Rousseau M.B.B.S. [address] [place] [phone] 08/11/2025 10:20 AM CDT Comprehensive Visit Division of Gastroenterology in [place], [place] [address] [place] [address] Jessica Rousseau M.B.B.S. [address] [place] [phone] 08/11/2025 1:00 PM CDT Clinical Support Department of Palliative Care in [place], [place] [address] [place] [address] Uma Aly APRN, C.N.P., M.S.N. [address] [place] [phone] 08/13/2025 10:00 AM CDT Lab Department of Laboratory Medicine and Pathology, [facility], in [place], [place] [address] [place] [address] Jessica Rousseau M.B.B.S. [address] [place] [phone] 08/13/2025 10:30 AM CDT Office Visit [facility] [place] Transplantation and Clinical Regeneration in [place], [place] [address] [place] [address] Jessica Rousseau M.B.B.S. [address] [place] [phone] 08/13/2025 11:00 AM CDT Nurse Only Pedro sanchez [facility] Transplantation and Clinical Regeneration in [place], [place] [address] [place] [address] Jessica Rousseau M.B.B.S. [address] [place] [phone] 08/13/2025 11:30 AM CDT Office Visit Pedro Nazario [facility] Transplantation and Clinical Regeneration in [place], [place] [address] [place] [phone] Jessica Rousseau M.B.B.S. [address] [place] [phone] documented as of this encounter Procedures Procedure [...] without recurrence of the marked splenomegaly seen [id number]. 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 Result [facility] Jamari Ochoa APRNNLuigi., D.N.P., M.S. N. IMG CT PROCEDURES Final [...] intravenous, Once in imaging, contrast, Starting on 06/30/25 at 1406, For 1 dose, Imaging Protocol Orders, Dose per Radiant Medication Guidelines Given 06/30/2025 3:29 PM CDT 140 mL sodium chloride (PF) 0.9 % injection 1-100 mL 1-100 mL, intravenous, Once, On 06/30/25 at 1430, For 1 dose, Imaging Protocol Orders, Dose per Radiant Medication Guidelines Given 06/30/2025 3:29 PM CDT 50 mL thckbsnd-tbevxpwj-tiweykb gum liquid 1-1,500 mL (Breeza) 1-1,500 mL, oral, Once, On 06/30/25 at 1430, For 1 dose, Imaging Protocol Orders Given 06/30/2025 2:22 PM CDT 1,500 mL documented in this encounter Additional Health Concerns Infection Onset Date Last Indicated Resolved Time Protective Environment 03/02/2023 03/02/2023 Assessment Noted Time PHQ-9 Depression Total Score: 2 12/10/19 25 2:46 PM [employer] documented as of this encounter Care Teams Baseball Glove Stuffer Relationship Specialty Start Date End Date Renzo Andres M.D. [address] [place] [address] [place] [phone] PCP - General Family Medicine 04/25/23 documented as of this encounter
--- OUTSIDE RECORDS SUMMARY | 2025-06-30 16:15 | XMS_ITS | Encounter Summary ---
Author Organization [facility] Address [address] [place] [address] Care Team Providers Care Drywall Hanger Name Role Phone Renzo Andres M.D. Primary Care Provider Reason for Referral * Specialty Diagnoses / Procedures Referred By Estefania acosta Referred To Contact RST [facility] [address] [place] [address] Phone: tel: [facility] Referral ID Status Reason Start Date Expiration Date Visits Re quested Visits Authorized Encounter Details Date Type Department Care Team (Latest Contact Info) Description 06/30/2025 4:15 PM CDT - 06/30/2025 7:30 PM CDT Hospital Encounter [facility], [facility], Ninth Floor [address] [place] [phone] Jimmy Rodriguez M.D. 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 No 06/24/2025 [facility] Utilities Answer Date Recorded In the past 12 months has e [employer], gas, oil, or water [employer] threatened to shut off services in your home? No 06/24/2025 Depression Answer Date Recor ded PHQ-9 Total Score (max 27) 2 12/10 Housing Stability Answer Date Recorded What is your living situation today? I have a [facility] place to live 06/24/2025 Education Answer Date Recorded What is the highest level of school you have completed or the highest degree you have received? Some college, no degree 04/24/2019 Comments No Sex and Gender Information Value Date Recorded Sex Assigned at Female 12/26/2018 8:37 PM BRIDGE IRONWORKER HELPER Legal Sex Female 2:43 PM BRIDGE IRONWORKER HELPER Gender Identity Female 12/26/2018 8:37 PM BRIDGE IRONWORKER HELPER Sexual Orientation Choose not to disclose [...] 1 05/20/2025 documented as of this encounter Progress Notes * Mckenzie Melvin APRN, C.N.P., D.N.P. - 06/30/2025 4:15 PM CDT Patient sent to hospital based outpatient station 9-[address] Rousseau on [place] 9 for pain control. Per Dr. Rousseau, [...] Per discussion with Uma Aly, Palliative Medicine DIRECTOR OF AUTOMATION, recommend patient increase oral dilaudid (home medication) [...] CDT Telemedicine Department of Palliative Care in [place], [place] [address] [place] [phone] Yary Landa D.O. [address] [place] [phone] 07/15/2025 9:00 AM CDT Telemedicine [facility] for Transplantation and Clinical Regeneration in [place], [place] [address] [place] [phone] Jessica Rousseau M.B.B.S. [address] [place] [phone] 08/11/2025 9:00 AM CDT Nurse Only Section of Infectious Diseases in [place], [place] [address] [place] [phone] Jessica Rousseau M.B.B.S. [address] [place] [phone] 08/11/2025 10:20 AM CDT Comprehensive Visit Division of Gastroenterology in [place], [place] [address] [place] [phone] Jessica Rousseau M.B.B.S. [address] [place] [phone] 08/11/2025 1:00 PM CDT Clinical Support Department of Palliative Care in [place], [place] [address] [place] [phone] Uma Aly APRN, C.N.P., M.S.N. [address] [place] [phone] 08/13/2025 10:00 AM CDT Lab Department of Laboratory Medicine and Pathology, [place], in [place], [place] [address] [place] [address] Jessica Rousseau M.B.B.S. [address] [place] [phone] 08/13/2025 10:30 AM CDT Office Visit [facility] Transplantation and Clinical Regeneration in [place], [place] [address] [place] [phone] Jessica Rousseau M.B.B.S. [address] [place] [phone] 08/13/2025 11:00 AM CDT Nurse Only [facility] Transplantation and Clinical Regeneration in [place], [place] [address] [place] [phone] Jessica Rousseau M.B.B.S. [address] [place] [phone] 08/13/2025 11:30 AM CDT Office Visit [facility] Transplantation and Clinical Regeneration in [place], [place] [address] [place] [phone] Jessica Rousseau M.B.B.S. [address] [place] [phone] Scheduled Referrals Name Type Priority Associated Diagnoses [...] Total Score: 2 12/10/19 25 2:46 PM BRIDGE IRONWORKER HELPER documented as of this encounter Care Teams Drywall Hanger Relationship Specialty Start Date End Date Renzo Andres M.D. [address] [place] [address] [place] [address] PCP - General Family Medicine 04/25/23 documented as of this encounter
--- OUTSIDE RECORDS SUMMARY | 2025-06-30 19:31 | XMS_ITS | Encounter Summary ---
Author Organization [facility] Address [address] [place] [address] Care Team Providers Care Central Processing Tech Name Role Phone Renzo Andres M.D. Primary Care Provider Reason for Visit * Reason Comments Abdominal Pain Encounter Details Date Type Department Care Team (Late st Contact Info) Description 06/30/2025 7:31 PM CDT - 06/30/2025 8:06 PM CDT Emergency [facility] Emergency Department [address] [place] [phone] Discharge Disposition: Left Against Medical Advice or [...] your living situation today? [facility] 06/24/2025 Education Answer Date Recorded What is the highest level of school you have completed or the highest degree you have received? Some college, no degree 04/24/2019 Comments No Sex and Gender Information Value Date Recorded Sex Assigned at Female 12/26/2018 8:37 PM GLUE MOUNTER OPERATOR Legal Sex Female 2:43 PM GLUE MOUNTER OPERATOR Gender Identity Female 12/26/2018 8:37 PM GLUE MOUNTER OPERATOR Sexual Orientation Choose not to disclose [...] 1 05/20/2025 documented as of this encounter ED Notes [...] 6 or 7 out of10. Mary Jane Taylor R.N. 06/30/25 193 documented in this encounter Plan of Treatment Upcoming Encounters Date Type Department Care Team (Latest Contact Info) Description 07/03/2025 8:00 AM CDT Telemedicine Department of Palliative Care in [place], [place] 200 [place] [address] Yary Landa D.O. [address] [place] [address] 07/15/2025 9:00 AM CDT [facility] in [place], [place] [address] [place] [address] Jessica Rousseau M.B.B.S. [address] [place] [phone] 08/11/2025 9:00 AM CDT Nurse Only Section of Infectious Diseases in [place], [place] [address] [place] [address] Jessica Rousseau M.B.B.S. [address] [place] [phone] 08/11/2025 10:20 AM CDT Comprehensive Visit Division of Gastroenterology in [place], [place] [address] [place] [phone] Jessica Rousseau M.B.B.S. [address] [place] [phone] 08/11/2025 1:00 PM CDT Clinical Support Department of Palliative Care in [place], [place] [address] [place] [address] Uma Aly APRN, C.N.P., M.S.N. [address] [place] [phone] 08/13/2025 10:00 AM CDT Lab Department of Laboratory Medicine and Pathology, [facility], in [place], [place] [address] [place] [phone] Jessica Rousseau M.B.B.S. [address] [place] [phone] 08/13/2025 10:30 AM CDT Office Visit Pedro Nazario [facility] Transplantation and Clinical Regeneration in [place], [place] [address] [place] [address] Jessica Rousseau M.B.B.S. [address] [place] [address] 08/13/2025 11:00 AM CDT Nurse Only [facility] Transplantation and Clinical Regeneration in [place], [place] [address] [place] [address] Jessica Rousseau M.B.B.S. [address] [place] [phone] 08/13/2025 11:30 AM CDT Office Visit [facility] Transplantation and Clinical Regeneration in [place], [place] [address] [place] [address] Jessica Rousseau M.B.B.S. [address] [place] [phone] Scheduled Orders Name Type Priority Associated Diagnoses [...] Score: 2 12/10/19 25 2:46 PM GLUE MOUNTER OPERATOR documented as of this encounter Care Teams Central Processing Tech Relationship Specialty Start Date End Date Renzo Andres M.D. [address] [place] [address] [place] [address] PCP - General Family Medicine 04/25/23 documented as of this encounter
[2025-07-02 01:29] VITALS: BP 145/94; PULSE 92; RESP 20; TEMP 36.7; O2SAT 97; BMI 33.5
--- OUTSIDE RECORDS SUMMARY | 2025-07-02 01:31 | XMS_ITS | Clinical Summary ---
Author Organization [facility] Address [address] [place] [address] Care Team Providers Care Diesel Retrofit Installer Name Role Phone Antoinette Palacio PhD, LP Unavailable [phone] Shweta Graciakim Huber MATHEMATICS INSTRUCTOR Unavailable [phone] Unavailable [phone] Staff, Other Clinical Unavailable UnavailErmelinda Cadet MD [...] Encounters Date Type Department Care Team Description 07/01/2025 Nurse Triage [facility] [address] [place] [address] Ermelinda Pierre MD Abdominal Pain 06/29/2025 11:15 AM CDT Telemedicine Formerly Named [facility] [address] [place] [address] Renita Pichardo PsyD, FIDENCIO Psychotherapy 06/22/2025 11:15 AM CDT Telemedicine Formerly Named [facility] [address] [place] [address] Renita Pichardo PsyD, LP Psychotherapy 06/18/2025 Telephone Formerly Named [facility] [address] [place] [address] Renita Pichardo PsyD, LP Late Cancel Appointment (APT 06/19/2025) 06/17/2025 Telephone Formerly Named [facility] [address] [place] [address] Renita Pichardo PsyD, LP Late Cancel Appointment 06/08/2025 11:15 AM CDT Telemedicine Formerly Named [facility] [address] [place] [address] Renita Pichardo PsyD, LP Psychotherapy 06/08/2025 Nurse Triage [facility] [address] [place] [address] Ermelinda Pierre MD Appointment 06/05/2025 1:00 PM CDT Telemedicine [facility] [address] [place] [address] Felicia Weathers NP Follow Up; Medication Management; Telehealth 06/05/2025 Travel 06/01/2025 8:45 AM CDT Telemedicine Formerly Named [facility] [address] [place] [address] Renita Pichardo PsyD, FIDENCIO Psychotherapy 05/29/2025 Telephone Formerly Named [facility] [address] [place] [address] Iris Victor LICSW Care Coordination (Re Engagement ) 05/28/2025 Telephone Formerly Named [facility] [address] [place] [address] Renita Pichardo PsyD, FIDENCIO FYI (Regarding appointment) 05/20/2025 1:45 PM CDT Telemedicine Formerly Named [facility] [address] [place] [address] Renita Pichardo PsyD, FIDENCIO Psychotherapy 05/12/2025 1:45 PM CDT Telemedicine Formerly Named [facility] [address] [place] [address] Renita Pichardo PsyD, LP Psychotherapy 05/08/2025 Telephone [facility] [address] [place] [address] Felicia Weathers NP Follow Up 05/06/2025 Telephone [facility] [address] [place] [address] Ermelinda Pierre MD ACC Order Request 05/04/2025 11:15 AM CDT Telemedicine Formerly Named [facility] [address] [place] [address] Renita Pichardo PsyD, LP Psychotherapy 04/20/2025 11:15 AM CDT Telemedicine Formerly Named [facility] [address] [place] [address] Renita Pichardo PsyD, LP Psychotherapy 04/06/2025 11:15 AM CDT Telemedicine Formerly Named [facility] [address] [place] [address] Renita Pichardo PsyD, LP Psychotherapy from Last 3 Months Immunizations Immunization Administration Dates Next Due COVID-19 vaccine (Moderna 100mcg/0.5mL) PFSYLVIA 11/10/2021 Hepatitis B (Adult) 03/07/2001,10/31/2000,1999 Hepatitis B [...] on file Legal Sex Female 5:23 AM BUNDLE WRAPPER Gender Identity Not on file Sexual Orientation [...] 36.2 C (97.1 F) 11/21/2023 9:09 AM BUNDLE WRAPPER Respiratory Rate 18 11/21/2023 9:09 AM BUNDLE WRAPPER Oxygen Saturation 98% 06/23/2024 10:48 AM CDT Inhaled Oxygen Concentration - - Weight 99.1 kg (218 lb 8 oz) 06/23/2024 10:48 AM CDT Height 172 cm (5' 7.72) 06/23/2024 10:48 AM CDT Body Mass Index 33.5 06/23/2024 10:48 AM CDT Plan of Treatment Upcoming Encounters Date Type Department Care Team (Late st Contact Info) Description 07/06/2025 2:45 PM CDT Telemedicine Former[facility] Named [facility] [address] [place] [address] Renita Pichardo PsyD, FIDENCIO [address] [address] 07/13/2025 1:45 PM CDT Telemedicine Former[facility] Named [facility] [address] [place] [address] Renita Pichardo PsyD, FIDENCIO [address] [address] 08/28/2025 1:00 PM CDT Telemedicine [facility] [address] [place] [address] Felicia Weathers, MUSTAPHA [address] [place] [address] Health Maintenance Due Date Last Done Comments [...] CDT Need for hepatitis C screening test EMBOSSING CALENDER OPERATOR THIN PREP PAP SCREEN IMAGED Routine 11/25/2013 11:15 AM BUNDLE WRAPPER Screening for malignant neoplasm of the cervix ANTI HIV 1/2 Routine 12/26/2010 5:05 PM BUNDLE WRAPPER Supervision of normal first (HC) from Last 3 Months or Most Recently Relevant to Health Maintenance Results * ANTI HCV (08/02/2023 1:57 PM CDT) HEPATITIS C ANTIBODY Non-Reacti ve Non-React nina 08/03/2023 3:[address] [facility] Comment:Please note, per www .CDC.gov: [...] CDT Estefany BLAND SEND OUTS Final Result [facility] SENDOUT INTERNAL ZIP [id number] [address] [place] [address] * EMBOSSING CALENDER OPERATOR THIN PREP PAP SCREEN IMAGED (11/25/2013 11:15 AM BUNDLE WRAPPER) CYTOLOGY CYTOPATHOLOGY REPORT [facility] Status: Final Status [id number] CLINICAL INFORMATION Last Date of LMP :11/17/13 Last Pap Date :03/03/2011 Last Pap Result :NIL ABN Armstrong/Bx Past 5 YRS :None Hormone Usage :BCP/OCP/Patch/Rin g Menstrual Status :Regular Periods Armstrong/Bx done today :No Additional Information :None given [...] malignant lesions. COLLECTED:11/25/13 ACCESSIONED: 11/26/13 SIGNED: 12/02/13 [facility] PAP [place] CODE [facility] Tissue specimen (specimen) (Cervical/Vagina l) 11/25/2013 11:15 AM BUNDLE WRAPPER 11/25/2013 11:12 AM BUNDLE WRAPPER us Cecile Montezjennifermartin PATHOLOGY/CYTOLOGY Final Resu lt [facility] INTERNAL ZIP [address] [place] [address] * ANTI HIV 1/2 (12/26/2010 5:05 PM BUNDLE WRAPPER) ANTI HIV 1/2 Non-reacti ve [facility] Blood specimen (specimen) BLOOD SPECIMEN / Unknown 12/26/2010 5:05 PM BUNDLE WRAPPER 12/26/2010 4:55 PM BUNDLE WRAPPER us Ladonna Nathan MUSEUM SPECIALIST SEND OUTS Final Result [facility] INTERNAL ZIP [address] [address] from Last 3 Months or Most Recently Relevant to Health Maintenance Insurance MEDICARE [place] ONLY MEDICARE PART A [place] ONLY MEDICARE PART B HB ONLY [facility] [place] [phone] (Home) ATTN: FRANK WHITE [address] [place] [id number] Care Teams Diesel Retrofit Installer Relationship Specialty Start Date End Date Ermelinda Pierre MD [address] [place] [address] PCP - General Family Practice 06/23/24 Antoinette Palacio, PhD, LP Psychologist Psychology 04/24/12 Gracia Rock CNS [address] [place] [address] Consulting Physician Clinical Nurse Specialist 07/07/[address] [place] [address] Registered Dietitian Travel Consultant 07/07/22 Staff, Other Clinical . Therapist Mental Health 07/03/22
--- OUTSIDE RECORDS SUMMARY | 2025-07-02 01:31 | XMS_ITS | Clinical Summary ---
Author Organization [facility] Address [address] [place] [address] Care Team Providers Care Auto Haulaway Driver Name Role Phone System, Provider Not In [...] Description 07/07/2025 2:40 PM CDT Office Visit [address] [place] [phone] Madeleine Roberts MD [address] [place] [address] [place] [phone] Health Maintenance Due Date Last Done Comments [...] HEPATITIS C SCREENING Completed 08/02/2023, 019 Insurance [facility] Care Teams Auto Haulaway Driver Relationship Specialty Start Date End Date System, Provider Not In PCP - General Clinic 06/08/22
--- NOTE | 2025-07-02 02:20 | ED.GENADULT ---
HPI - General Adult General Chief complaint: Abdominal Pain Stated complaint: abdominal pain Time Seen by Provider: 07/02/25 01:38 Source: patient Mode of arrival: ambulatory Limitations: no limitations History of Present Illness HPI narrative: 35-year-old female presents the emergency department for evaluation of left lower abdominal pain. This is a significantly ongoing issue. She was seen in the ED 3 days ago with the same symptoms. She reports that her pain was 7/10 at home is currently a 3/10. There is no emesis, no bloody stools, no change in the character of her pain. She reports that she was hospitalized male last week for more complete workup of this and they performed an EGD and a flex sig better still awaiting the biopsy result of the flex sig. Laceration or, nothing significant was found. She states that she actually did follow-up with her oncology team yesterday and they increased her Dilaudid to 4 mg up to every 4 hours. She reports that she did take 4 mg 3 times daily initially but only took 4 mg once today and her pain has worsened. She tried taking the tramadol that was prescribed, frustrated that the Dilaudid had worn off and reports that it did not seem effective. No fever. No dysuria. No change in the location, frequency or quality of her pain in any way. She has a history of CML, following with Oncology. I do not have access to the [facility] notes but have reviewed her story in it does correlate with the previous ED note from 3 days ago. She has had extensive workups here in the emergency room including multiple CT scans. He is on chronic pain medication as well as mental health medications. Nonsmoker. Denies alcohol use. ROS is notable for the chronic abdominal pain, otherwise denies times 12 systems. Related Data Home Medications ?Medication ?Instructions ?Recorded ?Confirmed duloxetine 60 mg capsule,delayed 60 mg PO BID 08/06/22 07/02/25 release acyclovir 400 mg tablet 400 mg PO BID 05/31/25 07/02/25 aripiprazole 10 mg tablet 10 mg PO DAILY 05/31/25 07/02/25 buprenorphine 5 mcg/hour weekly 1 patch topical Q7D chronic pain 05/31/25 07/02/25 transdermal patch hydromorphone 1 mg/mL oral liquid 0.5 mg PO DAILY PRN pain 05/31/25 07/02/25 pantoprazole 40 mg tablet,delayed 40 mg PO BID 05/31/25 07/02/25 release penicillin V potassium 500 mg 500 mg PO BID 05/31/25 07/02/25 tablet posaconazole 100 mg tablet,delayed 100 mg PO TID 05/31/25 07/02/25 release budesonide 3 mg 3 mg PO BID 06/14/25 07/02/25 capsule,delayed,extended release Previous Rx's ?Medication ?Instructions ?Recorded ketorolac 10 mg tablet 10 mg PO Q6H PRN pain #20 tabs 06/17/25 hydroxyzine pamoate 25 mg capsule 25 mg PO TID PRN Pain medication 07/02/25 enhancement #30 caps Allergies Allergy/AdvReac Type Severity Reaction Status Date / Time grapefruit Allergy Intermediate other Verified 07/02/25 01:32 amoxicillin Allergy Mild other Verified 07/02/25 01:32 bupropion (From Wellbutrin) Allergy Mild Hives Verified 07/02/25 01:32 [facility] Medical History Closed fracture of radius ?S52.90XA - Unspecified fracture of unspecified forearm, initial encounter for closed fracture (ICD-10) Depression ?F32.A - Depression, unspecified (ICD-10) Violation of controlled substance agreement ?Z91.148 - Patient's other noncompliance with medication regimen for other reason (ICD-10) Obesity ?E66.9 - Obesity, unspecified (ICD-10) Disorder of eye movements ?H51.9 - Unspecified disorder of binocular movement (ICD-10) Sciatica ?M54.30 - Sciatica, unspecified side (ICD-10) Neuropathy ?G62.9 - Polyneuropathy, unspecified (ICD-10) Migraines ?G43.909 - Migraine, unspecified, not intractable, without status migrainosus (ICD-10) Irritable bowel ?K58.9 - Irritable bowel syndrome, unspecified (ICD-10) Fibromyalgia ?M79.7 - Fibromyalgia (ICD-10) Anxiety ?F41.9 - Anxiety disorder, unspecified (ICD-10) Chronic myeloid leukemia (CML), BCR/ABL1-positive, in remission ?C92.11 - Chronic myeloid leukemia, BCR/ABL-positive, in remission (ICD-10) Surgical History History of eye surgery ?Z98.890 - Other specified postprocedural states (ICD-10) History of dilation and curettage ?Z98.890 - Other specified postprocedural states (ICD-10) History of bone marrow biopsy ?Z98.890 - Other specified postprocedural states (ICD-10) Social History Smoking Status: Never smoker Do you use any of these nicotine containing products: None Second hand tobacco smoke exposure: No How often do you have a drink containing alcohol: never How often do you have six or more drinks on one occasion: Never AUDIT-C Alcohol total score: 0 Non-prescribed substance use: denies use service: No Exam Const: Vital Signs, click to edit/add: Vital Signs - 24 hr 07/02/25 01:29 Temperature 98.1 F Pulse Rate [Right Pulse Oximeter] 92 Respiratory Rate 20 Blood Pressure [Ri ght Upper Arm] 145/94 H Pulse Oximetry 97 Oxygen Delivery Me thod Room Air Documenting provider has reviewed patient's vital signs: yes Common normals: alert General appearance: well kempt Other: Insight seems fair. But not distress nor septic appearing. Well nourished and well hydrated. Drove herself to the ED. Unaccompanied. HENMT: Common normals: normocephalic and moist oral mucous membranes Head and scalp: normocephalic Face and sinus: normal facial exam Mouth: oral and palatal mucosa normal Eye: Common normals: conjunctivae normal General eye: normal appearance of both eyes Conjunctiva: conjunctiva(e) normal Neck & C-Spine: Common normals: full ROM and no lymphadenopathy General: normal visual inspection Resp: Common normals: normal respiratory effort Effort & inspection: able to speak in complete sentences GI: Common normals: Normal to inspection, nondistended, normoactive bowel sounds present, soft to palpation, non-tender, no hepatosplenomegaly and no masses Palpation: soft and no hepatosplenomegaly Neuro: Sensorium/orientation: alert Speech: speech normal Psych: Appearance: well kempt Attitude: engaged Insight: insight good Judgement: judgment good Skin: Common normals: no rashes or lesions noted General skin exam: no rashes or lesions noted Course Course ED Course: 35-year-old female with chronic abdominal pain, not using the resources given to her by her oncology team and experiencing suboptimal pain control. There is no major change in her vital signs, exam or history that would suggest new pathology. Patient I had a lengthy conversation about pain management. She gets frustrated that the medicine wears off but I did explain to her that this is going to continue happening but if she is more diligent and regular with the use of it throughout the day that she will hit more of a steady state and experience less breakthrough pain when the medicine wears off. Rationale this is discussed and upon further thought, she does agree that perhaps she was not taking the medication and experienced an increase in her pain. It seems on her overnight ER frequent visits that she is not sleeping adequately and becomes frustrated and overwhelmed by this and does not really know what to do so comes back to the ED complaining of her chronic pain. Counseled patient to be insightful of this and consider using gentle sleep aids in addition to her pain medication if she is experiencing difficulty with the sleep. She is driving herself home so I will give her 25 mg of Vistaril as a pain medication booster. She will take her Dilaudid once she gets home and have also given her a limited supply of Flexeril 10 mg at bedtime p.r.n. to use as a sleep aid and pain treatment adjunct. She is instructed on use of with the Dilaudid exactly as the oncology team has directed as well as p.r.n. Vistaril a couple of times per day as a medication booster and she is to report back to her oncology team in 2 days on how the outcomes of this have gone. She has request referral to a pain specialist if her symptoms are not improving and is reminded to reserve the emergency department for new, severe and changing symptoms rather than chronic issues. Counseled that we will not give narcotics in the ED for this chronic pain. She verbalizes understanding and agreement and written instructions are also provided. Vital Signs Vital signs: Initial Vital Signs Temperature 98.1 F 07/02/25 01:29 Temperature Source Temporal Artery Scan 07/02/25 01:29 Pulse Rate 92 07/02/25 01:29 Respiratory Rate 20 07/02/25 01:29 Blood Pressure 145/94 H 07/02/25 01:29 Blood Pressure Mean 111 H 07/02/25 01:29 Blood Pressure Position Sitting 07/02/25 01:29 Pulse Oximetry 97 07/02/25 01:29 Oxygen Delivery Method Room Air 07/02/25 01:29 Vital Signs Temperature 98.1 F 07/02/25 01:29 Pulse Rate 92 07/02/25 01:29 Respiratory Rate 20 07/02/25 01:29 Blood Pressure 145/94 H 07/02/25 01:29 Pulse Oximetry 97 07/02/25 01:29 Oxygen Delivery Method Room Air 07/02/25 01:29 Temperature 98.1 F 07/02/25 01:29 Pulse Rate 92 07/02/25 01:29 Respiratory Rate 20 07/02/25 01:29 Blood Pressure 145/94 H 07/02/25 01:29 Pulse Oximetry 97 07/02/25 01:29 Oxygen Delivery Method Room Air 07/02/25 01:29 Discharge Plan Discharge Clinical Impression: Chronic abdominal pain Patient Disposition: Home, Self-Care Condition: Stable Instructions: Chronic Abdominal Pain (DC) Additional Instructions: As we discussed, I do not recommend that we repeat the CT or extensive blood work that you already had done multiple times this month. I am actually quite thankful that there has not been any major new findings through the workup that you have had for this abdominal pain. I think we need to refrain how we think about this pain for you to help you be more comfortable. As I discussed, the dilaudid that you are prescribed by your oncology team is much stronger than the tramadol that was given to you in the emergency department. Please do not use the tramadol. It will not be your needs. Remember that if you are still having significant pain but are not using the Dilaudid, you are doing yourself a disservice. Remember that taking the medicine a bit more regularly helps it reached steady state in your system. I would recommend that you commit to taking the medication at least 3 times per day, possibly for for the next day and a half to see if things hit a steady or state and have less ups and Downs for you. Hearing that you only took the medication once today and then it wore off an your pain worsened, makes sense. I do recommend that we address the nighttime pain and lack of sleep concerns as I think that this is the real route of your frustration. It does seem like your making it through the day managing this pain without as much distress. I have reviewed her medications and would recommend that we add Flexeril 10 mg at bedtime as needed to help you sleep. It is okay for you to also use etqg-imr-uhharss 10 mg melatonin in addition to this if you choose. Your given a small supply of this from the vending machine in the lobby. Please use this nightly and see if it is helpful for you and report back to your oncology team on the outcomes of this. Remember to take your Dilaudid as soon as you get home as well. I have also given her prescription for Vistaril, and antihistamine pain control boosting medication that is often fairly effective in women at making their narcotic medications more effective for them with out using quite as much opiates. Your given a dose of this here in the ED and I am sending a prescription to your pharmacy as well. You may use this up to 3 times per day, best taken with your Dilaudid to help boost the effectiveness of it. Report back to your oncology team in 2 days on how this experiment went and request a referral to a chronic pain team if this has not been successful as there are many other alternatives that can be tried for your pain. Please try to reserve the emergency department for new, severe changes to your pain, as we do not tend to manage chronic issues and have difficulty communicating with your primary management team. Activity Level: No Restrictions Discharge Diet: Regular Prescriptions: New hydroxyzine pamoate 25 mg capsule 25 mg PO TID PRN (Reason: Pain medication enhancement) Qty: 30 1RF No Action duloxetine 60 mg capsule,delayed release(DR/EC) 60 mg PO BID acyclovir 400 mg tablet 400 mg PO BID aripiprazole 10 mg tablet 10 mg PO DAILY buprenorphine 5 mcg/hour patch weekly 1 patch topical Q7D penicillin V potassium 500 mg tablet 500 mg PO BID pantoprazole 40 mg tablet,delayed release (DR/EC) 40 mg PO BID hydromorphone 1 mg/mL liquid 0.5 mg PO DAILY PRN (Reason: pain) posaconazole 100 mg tablet,delayed release (DR/EC) 100 mg PO TID budesonide 3 mg capsule,delayed,extend.release 3 mg PO BID ketorolac 10 mg tablet 10 mg PO Q6H PRN (Reason: pain) Qty: 20 0RF Rx Instructions: maximum total duration of 5 days from all oral, intranasal, or parenteral formulations Follow Up/Referrals: Anny Matthews NP [Primary Care Provider, Family Practice] Stand Alone [facility]: [facility] Info Instructions
--- OUTSIDE RECORDS SUMMARY | 2025-07-02 02:24 | XMS_ITS | Encounter Summary ---
Author Organization [facility] Address [address] [place] [address] Care Team Providers Care Egg Pasteurizer Name Role Phone Renzo Andres M.D. Primary Care Provider [phone] Encounter Details Date Type Department Care Team (Late st Contact Info) Description 12/24/2002 Historical Ophthalmology RST OPH Fercho Jeronimo M.D. Social History Tobacco Use Types Packs/Day Years Used Date Smoking Tobacco: Never Assessed Comments Unknown Sex and Gender Information Value Date Recorded Sex Assigned at Female 12/26/2018 8:37 PM CONTINUOUS DRYOUT OPERATOR Legal Sex Female 2:43 PM CONTINUOUS DRYOUT OPERATOR Gender Identity Female 12/26/2018 8:37 PM CONTINUOUS DRYOUT OPERATOR Sexual Orientation Choose not to disclose [...] 1) given. CDM Reports - EYEGEN Id: [id number] Status: Fnl documented in this encounter Plan of Treatment Upcoming Encounters Date Type Department Care Team (Latest Contact Info) Description 07/03/2025 8:00 AM CDT Telemedicine Department of Palliative Care in [place], [place] [address] [place] [phone] Yary Landa D.O. [address] [place] [phone] 07/15/2025 9:00 AM CDT Telemedicine [facility] in [place], [place] [address] [place] [phone] Jessica Rousseau M.B.B.S. [address] [place] [phone] 08/11/2025 9:00 AM CDT Nurse Only Section of Infectious Diseases in [address] [phone] Jessica Rousseau M.B.B.S. [address] [place] [phone] 08/11/2025 10:20 AM CDT Comprehensive Visit Division of Gastroenterology in [place], [place] [address] [place] [phone] Jessica Rousseau M.B.B.S. [address] [place] [phone] 08/11/2025 1:00 PM CDT Clinical Support Department of Palliative Care in [place], [place] [address] [place] [phone] Uma Aly APRN, C.N.P., M.S.N. [address] [place] [phone] 08/13/2025 10:00 AM CDT Lab Department of Laboratory Medicine and Pathology, [facility], in [place], [place] [address] [place] [address] Jessica Rousseau M.B.B.S. [address] [place] [phone] 08/13/2025 10:30 AM CDT [facility] [place], [place] [address] [place] [address] Jessica Rousseau M.B.B.S. [address] [place] [phone] 08/13/2025 11:00 AM CDT Nurse Only [facility] in [place], [place] [address] [place] [phone] Jessica Rousseau M.B.B.S. [address] [place] [phone] 08/13/2025 11:30 AM CDT Office Visit [facility] Transplantation and Clinical Regeneration in [place], [place] [address] [place] [address] Jessica Rousseau M.B.B.S. [address] [place] [phone] documented as of this encounter Visit Diagnoses Not on filedocumented in this encounter Additional Health Concerns Infection Onset Date Last Indicated Resolved Time COVID19 Pending 04/20/2020 04/20/2020 04/23/2020 2 :28 AM CDT COVID19 Pending 07/07/2020 07/07/2020 07/07/2020 7 :12 PM CDT COVID19 Pending 03/15/2021 03/15/2021 03/16/2021 1 1:39 AM CDT COVID19 01/07/2023 01/07/2023 01/27/2023 5:15 AM CONTINUOUS DRYOUT OPERATOR Protective Environment 03/02/2023 03/02/2023 COVID19 Pending 12/04/2024 12/04/2024 12/04/2024 1 0:20 AM CONTINUOUS DRYOUT OPERATOR documented as of this encounter Care Teams Egg Pasteurizer Relationship Specialty Start Date End Date Renzo Andres M.D. [address] [place] [address] [place] [phone] PCP - General Family Medicine 04/25/23 documented as of this encounter
--- OUTSIDE RECORDS SUMMARY | 2025-07-02 02:24 | XMS_ITS | Encounter Summary ---
Author Organization [facility] Address [address] [place] [address] Care Team Providers Care Heel Sprayer Name Role Phone Renzo Andres M.D. Primary Care Provider Encounter Details Date Type Department Care Team (Late st Contact Info) Description 05/06/2009 Historical Ophthalmology RST OPH Reginald Peter O.D. [address] [place] [phone] Social History Tobacco Use Types Packs/Day Years Used Date Smoking Tobacco: Never Assessed Comments Unknown Sex and Gender Information Value Date Recorded Sex Assigned at Female 12/26/2018 8:37 PM SHELLFISH HARVESTER Legal Sex Female 2:43 PM SHELLFISH HARVESTER Gender Identity Female 12/26/2018 8:37 PM SHELLFISH HARVESTER Sexual Orientation Choose not to disclose 2020 [...] (hyperopic astigmatism). CDM Reports - EYEGEN Id: [id number] Status: Fnl documented in this encounter Plan of Treatment Upcoming Encounters Date Type Department Care Team (Latest Contact Info) Description 07/03/2025 8:00 AM CDT Telemedicine Department of Palliative Care in [place], [place] [address] [place] [phone] Yary Landa D.O. [address] [place] [phone] 07/15/2025 9:00 AM CDT Telemedicine Pedro Arav[facility] in [place], [place] [address] [place] [phone] Jessica Rousseau M.B.B.S. [address] [place] [phone] 08/11/2025 9:00 AM CDT Nurse Only Section of Infectious Diseases in [place], [place] [address] [place] [phone] Jessica Rousseau M.B.B.S. [address] [place] [phone] 08/11/2025 10:20 AM CDT Comprehensive Visit Division of Gastroenterology in [place], [place] [address] [place] [phone] Jessica Rousseau M.B.B.S. [address] [place] [phone] 08/11/2025 1:00 PM CDT Clinical Support Department of Palliative Care in [place], [place] [address] [place] [address] Uma Aly APRN, C.N.P., M.S.N. [address] [place] [phone] 08/13/2025 10:00 AM CDT Lab Department of Laboratory Medicine and Pathology, [facility], in [place], [place] [address] [place] [address] Jessica Rousseau M.B.B.S. [address] [place] [phone] 08/13/2025 10:30 AM CDT [facility] in [place], [place] [address] [place] [phone] Jessica Rousseau M.B.B.S. [address] [place] [phone] 08/13/2025 11:00 AM CDT Nurse [facility] in [place], [place] [address] [place] [phone] Jessica Rousseau M.B.B.S. [address] [place] [phone] 08/13/2025 11:30 AM CDT Office Visit Pedro [facility] in [place], [place] [address] [place] [address] Jessica Rousseau M.B.B.S. [address] [place] [phone] documented as of this encounter Visit Diagnoses Not on filedocumented in this encounter Additional Health Concerns Infection Onset Date Last Indicated Resolved Time COVID19 Pending 04/20/2020 04/20/2020 04/23/2020 2 :28 AM CDT COVID19 Pending 07/07/2020 07/07/2020 07/07/2020 7 :12 PM CDT COVID19 Pending 03/15/2021 03/15/2021 03/16/2021 1 1:39 AM CDT COVID19 01/07/2023 01/07/2023 01/27/2023 5:15 AM SHELLFISH HARVESTER Protective Environment 03/02/2023 03/02/2023 COVID19 Pending 12/04/2024 12/04/2024 12/04/2024 1 0:20 AM SHELLFISH HARVESTER documented as of this encounter Care Teams Heel Sprayer Relationship Specialty Start Date End Date Renzo Andres M.D. [address] [place] [address] [place] [phone] PCP - General Family Medicine 04/25/23 documented as of this encounter
--- OUTSIDE RECORDS SUMMARY | 2025-07-02 02:24 | XMS_ITS | Encounter Summary ---
Author Organization [facility] Address [address] [place] [address] Care Team Providers Care Hydration Plant Operator Name Role Phone Renzo Andres M.D. Primary Care Provider Encounter Details Date Type Department Care Team (Late st Contact Info) Description 07/04/2006 Historical Ophthalmology RST OPH Fercho Jeronimo M.D. Social History Tobacco Use Types Packs/Day Years Used Date Smoking Tobacco: Never Assessed Comments Unknown Sex and Gender Information Value Date Recorded Sex Assigned at Female 12/26/2018 8:37 PM DIRECTOR MONEY Legal Sex Female 2:43 PM DIRECTOR MONEY Gender Identity Female 12/26/2018 8:37 PM DIRECTOR MONEY Sexual Orientation Choose not to disclose 2020 [...] eyes. No eye complaints. 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 No diplopia. Would like to get contacts. [...] both eyes CDM Reports - EYEGEN Id: [id number] Status: Fnl documented in this encounter Plan of Treatment Upcoming Encounters Date Type Department Care Team (Latest Contact Info) Description 07/03/2025 8:00 AM CDT Telemedicine Department of Palliative Care in [place], [place] [address] [place] [phone] Yary Landa D.O. [address] [place] [phone] 07/15/2025 9:00 AM CDT Telemedicine Pedro Aravind sanchez [facility] in [place], [place] [address] [place] [phone] Jessica Rousseau M.B.B.S. [address] [place] [phone] 08/11/2025 9:00 AM CDT Nurse Only Section of Infectious Diseases in [place], [place] [address] [place] [phone] Jessica Rousseau M.B.B.S. [address] [place] [phone] 08/11/2025 10:20 AM CDT Comprehensive Visit Division of Gastroenterology in [place], [place] [address] [place] [phone] Jessica Rousseau M.B.B.S. [address] [place] [phone] 08/11/2025 1:00 PM CDT Clinical Support Department of Palliative Care in [place], [place] [address] [place] [address] Uma Aly APRN, C.N.P., M.S.N. [address] [place] [phone] 08/13/2025 10:00 AM CDT Lab Department of Laboratory Medicine and Pathology, [facility] in [place], [place] [address] [place] [address] Jessica Rousseau M.B.B.S. [address] [place] [phone] 08/13/2025 10:30 AM CDT [facility] in [place], [place] [address] [place] [address] Jessica Rousseau M.B.B.S. [address] [place] [phone] 08/13/2025 11:00 AM CDT Nurse Only [facility] in [place], [place] [address] [place] [address] Jessica Rousseau M.B.B.S. [address] [place] [phone] 08/13/2025 11:30 AM CDT Office Visit Pedro Nazario [facility] for Trans[facility] and Clinical Regeneration in [place], [place] [address] [place] [address] Jessica Rousseau M.B.B.S. [address] [place] [phone] documented as of this encounter Visit Diagnoses Not on filedocumented in this encounter Additional Health Concerns Infection Onset Date Last Indicated Resolved Time COVID19 Pending 04/20/2020 04/20/2020 04/23/2020 2 :28 AM CDT COVID19 Pending 07/07/2020 07/07/2020 07/07/2020 7 :12 PM CDT COVID19 Pending 03/15/2021 03/15/2021 03/16/2021 1 1:39 AM CDT COVID19 01/07/2023 01/07/2023 01/27/2023 5:15 AM DIRECTOR MONEY Protective Environment 03/02/2023 03/02/2023 COVID19 Pending 12/04/2024 12/04/2024 12/04/2024 1 0:20 AM DIRECTOR MONEY documented as of this encounter Care Teams Hydration Plant Operator Relationship Specialty Start Date End Date Renzo Andres M.D. [address] [place] [phone] PCP - General Family Medicine 04/25/23 documented as of this encounter
--- OUTSIDE RECORDS SUMMARY | 2025-07-02 02:24 | XMS_ITS | Encounter Summary ---
Author Organization [facility] Address [address] [place] [address] Care Team Providers Care Interlocking Tower Operator Name Role Phone Renzo Andres M.D. Primary Care Provider [phone] Encounter Details Date Type Department Care Team (Late st Contact Info) Description 02/16/2005 Historical Ophthalmology RST OPH Fercho Jeronimo M.D. Social History Tobacco Use Types Packs/Day Years Used Date Smoking Tobacco: Never Assessed Comments Unknown Sex and Gender Information Value Date Recorded Sex Assigned at Female 12/26/2018 8:37 PM CERTIFIED COATINGS INSPECTOR Legal Sex Female 2:43 PM CERTIFIED COATINGS INSPECTOR Gender Identity Female 12/26/2018 8:37 PM CERTIFIED COATINGS INSPECTOR Sexual Orientation Choose not to disclose [...] both eyes CDM Reports - EYEGEN Id: [id number] Status: Fnl documented in this encounter Plan of Treatment Upcoming Encounters Date Type Department Care Team (Latest Contact Info) Description 07/03/2025 8:00 AM CDT Telemedicine Department of Palliative Care in [place], [place] [address] [place] [phone] Yary Landa D.O. [address] [place] [phone] 07/15/2025 9:00 AM CDT Telemedicine [facility] for Trans[facility] Clinical Regeneration in [place], [place] [address] [place] [phone] Jessica Rousseau M.B.B.S. [address] [place] [phone] 08/11/2025 9:00 AM CDT Nurse Only Section of Infectious Diseases in [address] [phone] Jessica Rousseau M.B.B.S. [address] [place] [phone] 08/11/2025 10:20 AM CDT Comprehensive Visit Division of Gastroenterology in [place], [place] [address] [place] [phone] Jessica Rousseau M.B.B.S. [address] [place] [phone] 08/11/2025 1:00 PM CDT Clinical Support Department of Palliative Care in [place], [place] [address] [place] [phone] Uma Aly APRN, CKatalinaN.P., M.S.N. [address] [place] [phone] 08/13/2025 10:00 AM CDT Lab Department of Laboratory Medicine and Pathology, [facility], in [place], [place] [address] [place] [address] Jessica Rousseau M.B.B.S. [address] [place] [phone] 08/13/2025 10:30 AM CDT [facility] in [place], [place] [address] [place] [address] Jessica Rousseau M.B.B.S. [address] [place] [phone] 08/13/2025 11:00 AM CDT Nurse Only [facility] in [place], [place] [address] [place] [address] Jessica Rousseau M.B.B.S. [address] [place] [phone] 08/13/2025 11:30 AM CDT Office Visit [facility] in [place], [place] [address] [place] [address] Jessica Rousseau M.B.B.S. [address] [place] [phone] documented as of this encounter Visit Diagnoses Not on filedocumented in this encounter Additional Health Concerns Infection Onset Date Last Indicated Resolved Time COVID19 Pending 04/20/2020 04/20/2020 04/23/2020 2 :28 AM CDT COVID19 Pending 07/07/2020 07/07/2020 07/07/2020 7 :12 PM CDT COVID19 Pending 03/15/2021 03/15/2021 03/16/2021 1 1:39 AM CDT COVID19 01/07/2023 01/07/2023 01/27/2023 5:15 AM CERTIFIED COATINGS INSPECTOR Protective Environment 03/02/2023 03/02/2023 COVID19 Pending 12/04/2024 12/04/2024 12/04/2024 1 0:20 AM CERTIFIED COATINGS INSPECTOR documented as of this encounter Care Teams Interlocking Tower Operator Relationship Specialty Start Date End Date Renzo Andres M.D. NPAmanda: [phone] [address] [place] [address] [place] [phone] PCP - General Family Medicine 04/25/23 documented as of this encounter
--- OUTSIDE RECORDS SUMMARY | 2025-07-02 02:25 | XMS_ITS | Encounter Summary ---
Author Organization [facility] Address [address] [place] [address] Care Team Providers Care Dough Molder Name Role Phone Renzo Andres M.D. Primary Care Provider Encounter Details Date Type Department Care Team (Late st Contact Info) Description 10/25/2022 Orders Only [facility]ST CCM [address] [place] [phone] [facility], Provider, MD Screening Test Laboratory Social History [...] place to sleep or slept in a alf (including now)? Patient refused 01/25/2022 Depression Answer Date Recor ded PHQ-9 Total Score (max 27) 11 08/01 Education Answer Date Recorded What is the highest level of school you have completed or the highest degree you have received? Some college, no degree 04/24/2019 Comments No Sex and Gender Information Value Date Recorded Sex Assigned at Female 12/26/2018 8:37 PM PASSENGER VESSEL CHEF Legal Sex Female 2:43 PM PASSENGER VESSEL CHEF Gender Identity Female 12/26/2018 8:37 PM PASSENGER VESSEL CHEF Sexual Orientation Choose not to disclose 2020 3:46 PM CDT documented as of this encounter Plan of Treatment Upcoming Encounters Date Type Department Care Team (Latest Contact Info) Description 07/03/2025 8:00 AM CDT Telemedicine Department of Palliative Care in [place], [place] 200 [place] [phone] Yary Landa D.O. [address] [place] [address] 07/15/2025 9:00 AM CDT Telemedicine Pedro Fatima [facility] in [place], [place] [address] [place] [address] Jessica Rousseau M.B.B.S. [address] [place] [phone] 08/11/2025 9:00 AM CDT Nurse Only Section of Infectious Diseases in [place], [place] [address] [place] [address] Jessica Rousseau M.B.B.S. [address] [place] [phone] 08/11/2025 10:20 AM CDT Comprehensive Visit Division of Gastroenterology in [place], [place] [address] [place] [address] Jessica Rousseau M.B.B.S. [address] [place] [phone] 08/11/2025 1:00 PM CDT Clinical Support Department of Palliative Care in [place], [place] [address] [place] [address] Uma Aly APRN, C.N.P., M.S.N. [address] [place] [phone] 08/13/2025 10:00 AM CDT Lab Department of Laboratory Medicine and Pathology, [facility], in [place], [place] [address] [place] [address] Jessica Rousseau M.B.B.S. [address] [place] [phone] 08/13/2025 10:30 AM CDT Office Visit Pedro Fatima [facility] Transplantation and Clinical Regeneration in [place], [place] [address] [place] [phone] Jessica Rousseau M.B.B.S. [address] [place] [address] 08/13/2025 11:00 AM CDT Nurse Only [facility] in [place], [place] [address] [place] [address] Jessica Rousseau M.B.B.S. [address] [place] [phone] 08/13/2025 11:30 AM CDT Office Visit [facility] Transplantation and Clinical Regeneration in [place], [place] [address] [place] [address] Jessica Rousseau M.B.B.S. [address] [place] [phone] documented as of this encounter Visit Diagnoses Diagnosis Screening Test Laboratory documented in this encounter Additional Health Concerns Infection Onset Date Last Indicated Resolved Time COVID19 01/07/2023 01/07/2023 01/27/2023 5:15 AM PASSENGER VESSEL CHEF Protective Environment 03/02/2023 03/02/2023 COVID19 Pending 12/04/2024 12/04/2024 12/04/2024 1 0:20 AM PASSENGER VESSEL CHEF Assessment Noted Time PHQ-9 Depression Total Score: 11 022 10:21 AM CDT documented as of this encounter Care Teams Dough Molder Relationship Specialty Start Date End Date Renzo Andres M.D. [address] [place] [address] [place] [phone] PCP - General Family Medicine 04/25/23 documented as of this encounter
--- OUTSIDE RECORDS SUMMARY | 2025-07-02 02:25 | XMS_ITS | Encounter Summary ---
Author Organization [facility] Address [address] [place] [address] Care Team Providers Care Home Weatherizing Worker Name Role Phone Renzo Andres M.D. Primary Care Provider [phone] Encounter Details Date Type Department Care Team (Late st Contact Info) Description 06/08/2025 Orders Only [facility], [facility], Ninth Floor [address] [place] [address] Analia Carter, MANUFACTURING TEAM LEADER, C.N.P. [address] [place] [phone] Social History Tobacco Use Types Packs/Day Years [...] things needed for daily living? No 06/24/2025 [facility] Utilities Answer Date Recorded In the past 12 months has th e electric, gas, oil, or water company threatened to shut off services in your home? No 06/24/2025 Depression Answer Date Recor ded PHQ-9 Total Score (max 27) 2 12/10 Housing Stability Answer Date Recorded What is your living situation today? I have a [facility] place to live 06/24/2025 Education Answer Date Recorded What is the highest level of school you have completed or the highest degree you have received? Some college, no degree 04/24/2019 Comments No Sex and Gender Information Value Date Recorded Sex Assigned at Female 12/26/2018 8:37 PM WATCH ASSEMBLER Legal Sex Female 2:43 PM WATCH ASSEMBLER Gender Identity Female 12/26/2018 8:37 PM WATCH ASSEMBLER Sexual Orientation Choose not to disclose 2020 3:46 PM CDT documented as of this encounter Plan of Treatment Upcoming Encounters Date Type Department Care Team (Latest Contact Info) Description 07/03/2025 8:00 AM CDT Telemedicine Department of Palliative Care in [place], [place] 200 [place] [address] Yary Landa D.O. 200 [place] [phone] 07/15/2025 9:00 AM CDT [facility]medicine [facility] in [place], [place] [address] [place] [phone] Jessica Rousseau M.B.B.S. [address] [place] [phone] 08/11/2025 9:00 AM CDT Nurse Only Section of Infectious Diseases in [place], [place] [address] [place] [phone] Jessica Rousseau M.B.B.S. [address] [place] [phone] 08/11/2025 10:20 AM CDT Comprehensive Visit Division of Gastroenterology in [place], [place] [address] [place] [phone] Jessica Rousseau M.B.B.S. [address] [place] [phone] 08/11/2025 1:00 PM CDT Clinical Support Department of Palliative Care in [place], [place] [address] [place] [phone] Uma Aly APRN, C.N.P., M.S.N. [address] [place] [phone] 08/13/2025 10:00 AM CDT Lab Department of Laboratory Medicine and Pathology, [facility], in [place], [place] [address] [place] [phone] Jessica Rousseau M.B.B.S. [address] [place] [phone] 08/13/2025 10:30 AM CDT Office [facility] in [place], [place] [address] [place] [address] Jessica Rousseau M.B.B.S. [address] [place] [phone] 08/13/2025 11:00 AM CDT Nurse Only [facility] Transplantation and Clinical Regeneration in [place], [place] [address] [place] [address] Jessica Rousseau M.B.B.S. [address] [place] [phone] 08/13/2025 11:30 AM CDT Office Visit [facility] Transplantation and Clinical Regeneration in [place], [place] [address] [place] [address] Jessica Rousseau M.B.B.S. [address] [place] [phone] documented as of this encounter Visit Diagnoses Not on filedocumented in this encounter Additional Health Concerns Infection Onset Date Last Indicated Resolved Time Protective Environment 03/02/2023 03/02/2023 Assessment Noted Time PHQ-9 Depression Total Score: 2 12/10/19 25 2:46 PM WATCH ASSEMBLER documented as of this encounter Care Teams Home Weatherizing Worker Relationship Specialty Start Date End Date Renzo Andres M.D. [address] [place] [phone] PCP - General Family Medicine 04/25/23 documented as of this encounter
--- OUTSIDE RECORDS SUMMARY | 2025-07-02 02:25 | XMS_ITS | Encounter Summary ---
Author Organization [facility] Address [address] [place] [address] Care Team Providers Care Supervisor Lime Name Role Phone Renzo Andres M.D. 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 [address] [place] [address] Phone: tel: fax: [facility] Referral ID Status Reason Start Date Expiration Date V isits Requested Visits Authorized [id number] Authorized 06/17/2025 12/17/2026 1 1 Reason for Visit * Reason Onset Date Comments Symptom Assessment 06/17/2025 Encounter Details Date Type Department Care Team (Latest Contact Info) Description 06/17/2025 Clinical Communication [facility] in [place], [place] [address] [place] [phone] Jeanna Victor Symptom Assessment Social History Tobacco [...] things needed for daily living? No 06/12/2025 [facility] Utilities Answer Date Recorded In the past 12 months has e [facility], gas, oil, or water [employer] threatened to shut off services in your home? No 06/12/2025 Depression Answer Date Recor ded PHQ-9 Total Score (max 27) 2 12/10 Housing Stability Answer Date Recorded What is your living situation today? I have a [facility] place to live 06/12/2025 Education Answer Date Recorded What is the highest level of school you have completed or the highest degree you have received? Some college, no degree 04/24/2019 Comments No Sex and Gender Information Value Date Recorded Sex Assigned at Female 12/26/2018 8:37 PM OFFICE COMMUNICATION PROFESSOR Legal Sex Female 2:43 PM OFFICE COMMUNICATION PROFESSOR Gender Identity Female 12/26/2018 8:37 PM OFFICE COMMUNICATION PROFESSOR Sexual Orientation Choose not to disclose 2020 [...] CDT Telemedicine Department of Palliative Care in [place], [place] [address] [place] [address] Yary Landa D.O. [address] [place] [address] 07/15/2025 9:00 AM CDT [facility]medicine [facility] in [place], [place] [address] [place] [address] Jessica Rousseau M.B.B.S. [address] [place] [phone] 08/11/2025 9:00 AM CDT Nurse Only Section of Infectious Diseases in [place], [place] [address] [place] [phone] Jessica Rousseau M.B.B.S. [address] [place] [phone] 08/11/2025 10:20 AM CDT Comprehensive Visit Division of Gastroenterology in [place], [place] [address] [place] [phone] Jessica Rousseau M.B.B.S. [address] [place] [phone] 08/11/2025 1:00 PM CDT Clinical Support Department of Palliative Care in [place], [place] [address] [place] [address] Uma Aly APRN, C.N.P., M.S.N. [address] [place] [phone] 08/13/2025 10:00 AM CDT Lab Department of Laboratory Medicine and Pathology, [facility], in [place], [place] [address] [place] [address] Jessica Rousseau M.B.B.S. [address] [place] [phone] 08/13/2025 10:30 AM CDT Office [facility] in [place], [place] [address] [place] [address] Jessica Rousseau M.B.B.S. [address] [place] [phone] 08/13/2025 11:00 AM CDT Nurse Only [facility] Transplantation and Clinical Regeneration in [place], [place] [address] [place] [address] Jessica Rousseau M.B.B.S. [address] [place] [phone] 08/13/2025 11:30 AM CDT Office Visit [facility] Transplantation and Clinical Regeneration in [place], [place] [address] [place] [address] Jessica Rousseau M.B.B.S. [address] [place] [phone] Scheduled Referrals Name Type Priority Associated Diagnoses [...] Total Score: 2 12/10/19 25 2:46 PM OFFICE COMMUNICATION PROFESSOR documented as of this encounter Care Teams Supervisor Lime Relationship Specialty Start Date End Date Renzo Andres M.D. [address] [place] [address] [place] [phone] PCP - General Family Medicine 04/25/23 documented as of this encounter
--- OUTSIDE RECORDS SUMMARY | 2025-07-02 02:26 | XMS_ITS | Encounter Summary ---
Author Organization [facility] Address [address] [place] [address] Care Team Providers Care Land Reclamation Specialist Name Role Phone Renzo Andres M.D. Primary Care Provider [phone] Reason for Referral * Outpatient (Routine) - Closed Specialty Diagnoses / Procedures Referred By Estefania acosta Referred To Contact Diagnoses Transplant Stem Cell (HCC) Pain Pleuritic Chest Procedures ECG 12 Lead ID EKG 12 LEAD W I&R Analia Carter APRN, C.N.P. [address] [place] [phone] Phone: tel: fax: [facility] Referral ID Status Reason Start Date Expiration Date Visits Re quested Visits Authorized [id number] Closed 06/06/2025 09/06/2026 1 1 Encounter Details Date Type Department Care Team (Late st Contact Info) Description 06/06/2025 Orders Only [facility], Ninth Floor [address] [place] [phone] Analia Carter APRN, C.N.P. [address] [place] [phone] Transplant Stem Cell (HCC) (Primary Dx); Pain [...] for daily living? No 06/12/2025 [facility] Utilities Answer Date Recorded In the past 12 months has [facility] electric, gas, oil, or water company threatened to shut off services in your home? No 06/12/2025 Depression Answer Date Recor ded PHQ-9 Total Score (max 27) 2 12/10 Housing Stability Answer Date Recorded What is your living situation today? I have a [facility] place to live 06/12/2025 Education Answer Date Recorded What is the highest level of school you have completed or the highest degree you have received? Some college, no degree 04/24/2019 Comments No Sex and Gender Information Value Date Recorded Sex Assigned at Female 12/26/2018 8:37 PM SCOOP DRIVER Legal Sex Female 2:43 PM SCOOP DRIVER Gender Identity Female 12/26/2018 8:37 PM SCOOP DRIVER Sexual Orientation Choose not to disclose [...] CDT Telemedicine Department of Palliative Care in [place], [place] [address] [place] [address] Yary Landa D.O. [address] [place] [phone] 07/15/2025 9:00 AM CDT Telemedicine [facility] for Transplantation and Clinical Regeneration in [place], [place] [address] [place] [phone] Jessica Rousseua M.B.B.S. [address] [place] [phone] 08/11/2025 9:00 AM CDT Nurse Only Section of Infectious Diseases in [place], [place] [address] [place] [phone] Jessica Rousseau M.B.B.S. [address] [place] [phone] 08/11/2025 10:20 AM CDT Comprehensive Visit Division of Gastroenterology in [place], [place] [address] [place] [phone] Jessica Rousseau M.B.B.S. [address] [place] [phone] 08/11/2025 1:00 PM CDT Clinical Support Department of Palliative Care in [place], [place] [address] [place] [phone] Uma Aly APRN, C.N.P., M.S.N. [address] [place] [phone] 08/13/2025 10:00 AM CDT Lab Department of Laboratory Medicine and Pathology, [facility], in [place], [place] [address] [place] [address] Jessica Rousseau M.B.B.S. [address] [place] [address] 08/13/2025 10:30 AM CDT Office Visit [facility] Transplantation and Clinical Regeneration in [place], [place] [address] [place] [address] Jessica Rousseau M.B.B.S. [address] [place] [address] 08/13/2025 11:00 AM CDT Nurse Only [facility] Transplantation and Clinical Regeneration in [place], [place] [address] [place] [address] Jessica Rousseau M.B.B.S. [address] [place] [phone] 08/13/2025 11:30 AM CDT Office Visit [facility] Transplantation and Clinical Regeneration in [place], [place] [address] [place] [address] Jessica Rousseau M.B.B.S. [address] [place] [phone] documented as of this encounter Results * ECG 12 Lead (06/07/2025 12:15 PM CDT) Ventricular Rate ECG/Min 86 BPM MUSE ID Interval 172 ms MUSE QRSD Interval 78 ms MUSE QT Interval 350 ms MUSE QTC Interval 418 ms MUSE P [place] 55 degrees MUSE R [place] 11 degrees MUSE T Wave [place] 38 degrees MUSE 06/07/2025 12:1 5 PM [...] High Sensitivity (06/07/2025 12:12 PM CDT) Pathologist [facility] C-Reactive Protein, High Sens, S 3.9(H) <2.0 mg/L 06/07/2025 2:36 PM CDT DTL Comment: Elevated C-reactive protein (>=2.0 mg/L) is a risk factor for cardiovascular disease. Clinician-patient discussion of therapeutic strategy is warranted. Blood (Blood, Venous) 06/07/2025 12:12 PM CDT 06/07/2025 12:19 PM CDT Analia Gamez APRN, C.N.P. LAB BLOOD ADD-ON Final Result Performing Organization Address City/[facility]/ZIP Co de Phone Number [facility] [address] [place] [address], [facility] DTL [facility] [address] [place] [address] * NT-Pro B-Type Natriuretic Peptide (BNP) (06/07/2025 12:12 PM CDT) Pathologist [facility] NT-Pro BNP <36 <160 pg/mL 06/07/2025 2:36 [...] BLOOD ADD-ON Final Result Performing Organization Address [facility] de Phone Number [facility] [address] [place] [address] * Troponin T, 5th Generation (06/07/2025 12:12 PM CDT) Troponin T, 5th gen <6 <=10 ng/L 06/07/2025 1:04 PM CDT DT Blood (Blood, Venous) 06/07/2025 12:12 PM CDT 06/07/2025 12:19 PM CDT Analia Gamez APRN, C.N.P. LAB BLOOD ADD-ON Final Result Performing Organization Address [facility] de Phone Number [facility] 200 [place] [address] * Magnesium (06/07/2025 12:12 PM CDT) Magnesium, S 2.2 1.7 - 2.3 mg/dL 06/07/2025 2:36 PM CDT DT Blood (Blood, Venous) 06/07/2025 12:12 PM CDT 06/07/2025 12:19 PM CDT Analia Gamez APRN, C.N.P. LAB BLOOD ADD-ON Final Result [facility] [address] [place] [address], [facility] DTL [facility] [address] [place] [address] * (ABNORMAL) Comprehensive Metabolic Panel (06/07/2025 12:12 PM CDT) Pathologist [facility] Potassium, S 4.3 3.6 - 5.2 mmol/L [...] APRN, C.N.P. LAB BLOOD ADD-ON Final Result [facility] [address] [place] [address], [facility] [address] [place] [address] * (ABNORMAL) CBC no call back, reflex [...] C.N.P. LAB BLOOD NON ADD-ON Final Result [facility] [address] [place] [address], [place] DTL [facility] [address] [place] [address] DHPM [facility] [address] [place] [address] documented in this encounter Visit Diagnoses Diagnosis [...] Total Score: 2 12/10/19 25 2:46 PM SCOOP DRIVER documented as of this encounter Care Teams Land Reclamation Specialist Relationship Specialty Start Date End Date Renzo Andres M.D. [address] [place] [address] [place] [phone] PCP - General Family Medicine 04/25/23 documented as of this encounter
--- OUTSIDE RECORDS SUMMARY | 2025-07-02 02:26 | XMS_ITS | Encounter Summary ---
Author Organization [facility] Address [address] [place] [address] Care Team Providers Care Electric Clock Mechanic Name Role Phone Renzo Andres M.D. 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 [address] [place] [address] Phone: tel: fax: [facility] Referral ID Status Reason Start Date Expiration Date Visits Re quested Visits Authorized [id number] Closed 06/05/2025 09/05/2026 1 1 Reason for Visit * Reason Onset Date Comments Phone Contact 06/05/2025 CT Results Encounter Details Date Type Department Care Team (Latest Contact Info) Description 06/05/2025 Clinical Communication Pedro [facility] for Transplantation and Clinical Regeneration in [place], [place] [address] [place] [address] Jessica Rousseau M.B.B.S. [address] [place] [address] Phone Contact (CT Results) Social History Tobacco Use Types Packs/Day Years Used Date Smoking Tobacco: Never Smokeless Tobacco: Never Alcohol Use Standard Drinks/Week Comments Yes 0 (1 standard drink = 0.6 oz pur e alcohol) social [facility] Utilities Answer Date Recorded In the past 12 months has e [employer], gas, oil, or water [employer] threatened to shut off services in your [...] [facility] 05/28/2025 Education Answer Date Recorded What is the highest level of school you have completed or the highest degree you have received? Some college, no degree 04/24/2019 Comments No Sex and Gender Information Value Date Recorded Sex Assigned at Female 12/26/2018 8:37 PM WARP HANGER Legal Sex Female 2:43 PM WARP HANGER Gender Identity Female 12/26/2018 8:37 PM WARP HANGER Sexual Orientation Choose not to disclose 2020 3:46 PM CDT documented as of this encounter Plan of Treatment Upcoming Encounters Date Type Department Care Team (Latest Contact Info) Description 07/03/2025 8:00 AM CDT Telemedicine Department of Palliative Care in [place], [place] [address] [place] [phone] Yary Landa D.O. [address] [place] [phone] 07/15/2025 9:00 AM CDT Telemedicine Pedro Aravind [facility] for Transplantation and Clinical Regeneration in [place], [place] [address] [place] [phone] Jessica Rousseau M.B.B.S. [address] [place] [phone] 08/11/2025 9:00 AM CDT Nurse Only Section of Infectious Diseases in [address] [phone] Jessica Rousseau M.B.B.S. [address] [place] [phone] 08/11/2025 10:20 AM CDT Comprehensive Visit Division of Gastroenterology in [place], [place] [address] [place] [phone] Jessica Rousseau M.B.B.S. [address] [place] [phone] 08/11/2025 1:00 PM CDT Clinical Support Department of Palliative Care in [place], [place] [address] [place] [address] Uma Aly APRN, C.N.P., M.S.N. [address] [place] [phone] 08/13/2025 10:00 AM CDT Lab Department of Laboratory Medicine and Pathology, [facility] in [place], [place] [address] [place] [address] Jessica Rousseau M.B.B.S. [address] [place] [phone] 08/13/2025 10:30 AM CDT Office Visit [facility] in [place], [place] [address] [place] [address] Jessica Rousseau M.B.B.S. [address] [place] [phone] 08/13/2025 11:00 AM CDT Nurse Only [facility] for Transplantation and Clinical Regeneration in [place], [place] [address] [place] [address] Jessica Rousseau M.B.B.S. [address] [place] [phone] 08/13/2025 11:30 AM CDT Office Visit [facility] in [place], [place] [address] [place] [address] Jessica Rousseau M.B.B.S. 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 [address] [place] [address] [place] [phone] PCP - General Family Medicine 04/25/23 documented as of this encounter
--- OUTSIDE RECORDS SUMMARY | 2025-07-02 02:26 | XMS_ITS | Encounter Summary ---
Author Organization [facility] Address [address] [place] [address] Care Team Providers Care Economic Consultant Name Role Phone Renzo Andres M.D. Primary Care Provider Encounter Details Date Type Department Care Team (Late st Contact Info) Description 06/05/2025 Documentation [facility] in [place], [place] [address] [place] [phone] Jessica Avila APRN, C.N.P., M.S.N. [address] [place] [phone] Social History Tobacco Use Types Packs/Day Years Used Date Smoking Tobacco: Never Smokeless Tobacco: Never Alcohol Use Standard Drinks/Week Comments Yes 0 (1 standard drink = 0.6 oz pur e alcohol) social [facility] Utilities Answer Date Recorded In the past 12 months has e [employer], gas, oil, or water company threatened to [...] Sex Assigned at Female 12/26/2018 8:37 PM AMBULATORY CARE Legal Sex Female 2:43 PM AMBULATORY CARE Gender Identity Female 12/26/2018 8:37 PM AMBULATORY CARE Sexual Orientation Choose not to disclose 2020 [...] CDT Telemedicine Department of Palliative Care in [place], [place] [address] [place] [phone] Yary Landa D.O. [address] [place] [phone] 07/15/2025 9:00 AM CDT Telemedicine Pedro Aravind [facility] for Transplantation and Clinical Regeneration in [place], [place] [address] [place] [phone] Jessica Rousseau M.B.B.S. [address] [place] [phone] 08/11/2025 9:00 AM CDT Nurse Only Section of Infectious Diseases in [place], [place] [address] [place] [phone] Jessica Rousseau M.B.B.S. [address] [place] [phone] 08/11/2025 10:20 AM CDT Comprehensive Visit Division of Gastroenterology in [place], [place] [address] [place] [address] Jessica Rousseau M.B.B.S. [address] [place] [phone] 08/11/2025 1:00 PM CDT Clinical Support Department of Palliative Care in [place], [place] [address] [place] [address] Uma Aly APRN, C.N.P., M.S.N. [address] [place] [phone] 08/13/2025 10:00 AM CDT Lab Department of Laboratory Medicine and Pathology, [facility], in [place], [place] [address] [place] [address] Jessica Rousseau M.B.B.S. [address] [place] [phone] 08/13/2025 10:30 AM CDT Office [facility] in [place], [place] [address] [place] [address] Jessica Rousseau M.B.B.S. [address] [place] [phone] 08/13/2025 11:00 AM CDT Nurse Only [facility] in [place], [place] [address] [place] [address] Jessica Rousseau M.B.B.S. [address] [place] [phone] 08/13/2025 11:30 AM CDT Office [facility] in [place], [place] [address] [place] [address] Jessica Rousseau M.B.B.S. [address] [place] [address] documented as of this encounter Visit Diagnoses Not on filedocumented in this encounter Additional Health Concerns Infection Onset Date Last Indicated Resolved Time Protective Environment 03/02/2023 03/02/2023 Assessment Noted Time PHQ-9 Depression Total Score: 2 12/10/19 25 2:46 PM AMBULATORY CARE documented as of this encounter Care Teams Economic Consultant Relationship Specialty Start Date End Date Renzo Andres M.D. [address] [place] [phone] PCP - General Family Medicine 04/25/23 documented as of this encounter
--- OUTSIDE RECORDS SUMMARY | 2025-07-02 02:26 | XMS_ITS | Encounter Summary ---
Author Organization [facility] Address [address] [place] [address] Care Team Providers Care Line Servicer Name Role Phone Renzo Andres M.D. Primary Care Provider [phone] Reason for Referral * Specialty Diagnoses / Procedures Referred By Estefania acosta Referred To Contact Diagnoses Transplant Stem Cell (HCC) RST [facility] [address] [place] [address] Phone: tel: [facility] Referral ID Status Reason Start Date Expiration Date Visits Re quested Visits Authorized Scheduling Instructions Please schedule on 06/07 at noon BW,Exam Encounter Details Date Type Department Care Team (Late st Contact Info) Description 06/06/2025 Orders Only [facility], [facility], [facility], Ninth Floor [address] [place] [address] Romina Garsia, R.N. Transplant Stem [...] [facility] place [facility] live 05/28/2025 Education Answer Date Recorded What is the highest level of school you have completed or the highest degree you have received? Some college, no degree 04/24/2019 Comments No Sex and Gender Information Value Date Recorded Sex Assigned at Female 12/26/2018 8:37 PM HYDROMETEOROLOGICAL TECHNICIAN Legal Sex Female 2:43 PM HYDROMETEOROLOGICAL TECHNICIAN Gender Identity Female 12/26/2018 8:37 PM HYDROMETEOROLOGICAL TECHNICIAN Sexual Orientation Choose not to disclose 2020 3:46 PM CDT documented as of this encounter Plan of Treatment Upcoming Encounters Date Type Department Care Team (Latest Contact Info) Description 07/03/2025 8:00 AM CDT Telemedicine Department of Palliative Care in [place], [place] [address] [place] [phone] Yary Landa D.O. [address] [place] [phone] 07/15/2025 9:00 AM CDT Telemedicine [facility] in [place], [place] [address] [place] [phone] Jessica Rousseau M.B.B.S. [address] [place] [phone] 08/11/2025 9:00 AM CDT Nurse Only Section of Infectious Diseases in [place], [place] [address] [place] [phone] Jessica Rousseau M.B.B.S. [address] [place] [phone] 08/11/2025 10:20 AM CDT Comprehensive Visit Division of Gastroenterology in [place], [place] [address] [place] [phone] Jessica Rousseau M.B.B.S. [address] [place] [phone] 08/11/2025 1:00 PM CDT Clinical Support Department of Palliative Care in [place], [place] [address] [place] [phone] Uma Aly APRN, C.N.P., M.S.N. [address] [place] [phone] 08/13/2025 10:00 AM CDT Lab Department of Laboratory Medicine and Pathology, [facility], in [place], [place] [address] [place] [address] Jessica Rousseau M.B.B.S. [address] [place] [phone] 08/13/2025 10:30 AM CDT Office Visit [facility] Transplantation and Clinical Regeneration in [place], [place] [address] [place] [phone] Jessica Rousseau M.B.B.S. [address] [place] [phone] 08/13/2025 11:00 AM CDT Nurse Only [facility] Transplantation and Clinical Regeneration in [place], [place] [address] [place] [phone] Jessica Rousseau M.B.B.S. [address] [place] [phone] 08/13/2025 11:30 AM CDT Office Visit [facility] Transplantation and Clinical Regeneration in [place], [place] [address] [place] [phone] Jessica Rousseau M.B.B.S. [address] [place] [phone] Scheduled Referrals Name Type Priority Associated Diagnoses [...] Total Score: 2 12/10/19 25 2:46 PM HYDROMETEOROLOGICAL TECHNICIAN documented as of this encounter Care Teams Line Servicer Relationship Specialty Start Date End Date Renzo Andres M.D. [address] [place] [address] Aaliyah Hansen, [place] [phone] PCP - General Family Medicine 04/25/23 documented as of this encounter
--- OUTSIDE RECORDS SUMMARY | 2025-07-02 02:27 | XMS_ITS | Encounter Summary ---
Author Organization [facility] Address [address] [place] [address] Care Team Providers Care Reheater Name Role Phone Renzo Andres M.D. Primary Care Provider Reason for Referral * Medication Prior Authorization - Authorized Specialty Diagnoses / Procedures Referred By Contheidy t Referred To Contact Diagnoses Leukemia Myeloid Chronic BCR/ABL Positive Remission (HCC) Transplant Bone Marrow Allogeneic (HCC) nAalia Carter APRN, C.N.P. [address] [place] [phone] Phone: tel: fax: Referral ID Status Reason Start Date Expiration Date V isits Requested Visits Authorized [id number] Authorized 06/01/2025 12/12/2025 1 1 Encounter Details Date Type Department Care Team (Late st Contact Info) Description 06/13/2025 Orders Only [facility], [facility], Ninth Floor [address] [place] [address] Analia Carter APRN, C.N.P. [address] [place] [phone] Leukemia Myeloid Chronic BCR/ABL Positive Remission (HCC); [...] things needed for daily living? No 06/24/2025 [facility] Utilities Answer Date Recorded In the past 12 months [facility] electric, gas, oil, or water company threatened to shut off services in your home? No 06/24/2025 Depression Answer Date Recor ded PHQ-9 Total Score (max 27) 2 12/10 Housing Stability Answer Date Recorded What is your living situation today? I have a [facility] place to live 06/24/2025 Education Answer Date Recorded What is the highest level of school you have completed or the highest degree you have received? Some college, no degree 04/24/2019 Comments No Sex and Gender Information Value Date Recorded Sex Assigned at Female 12/26/2018 8:37 PM TYPE PHOTOGRAPHY SUPERVISOR Legal Sex Female 2:43 PM TYPE PHOTOGRAPHY SUPERVISOR Gender Identity Female 12/26/2018 8:37 PM TYPE PHOTOGRAPHY SUPERVISOR Sexual Orientation Choose not to disclose 2020 3:46 PM CDT documented as of this encounter Plan of Treatment Upcoming Encounters Date Type Department Care Team (Latest Contact Info) Description 07/03/2025 8:00 AM CDT Telemedicine Department of Palliative Care in [place], [place] [address] [place] [phone] Yary Landa D.O. [address] [place] [phone] 07/15/2025 9:00 AM CDT Telemedicine [facility] for Transplantation and Clinical Regeneration in [place], [place] [address] [place] [phone] Jessica Rousseau M.B.B.S. [address] [place] [phone] 08/11/2025 9:00 AM CDT Nurse Only Section of Infectious Diseases in [address] [phone] Jessica Rousseau M.B.B.S. [address] [place] [phone] 08/11/2025 10:20 AM CDT Comprehensive Visit Division of Gastroenterology in [place], [place] [address] [place] [phone] Jessica Rousseau M.B.B.S. [address] [place] [phone] 08/11/2025 1:00 PM CDT Clinical Support Department of Palliative Care in [place], [place] [address] [place] [phone] Uma Aly APRN, CKatalinaNKatalinaP., M.S.N. [address] [place] [address] 08/13/2025 10:00 AM CDT Lab Department of Laboratory Medicine and Pathology, [facility], in [place], [place] [address] [place] [address] Jessica Rousseau M.B.B.S. [address] [place] [phone] 08/13/2025 10:30 AM CDT Office Visit [facility] for Transplantation and Clinical Regeneration in [place], [place] [address] [place] [address] Jessica Rousseau M.B.B.S. [address] [place] [phone] 08/13/2025 11:00 AM CDT Nurse Only [facility] Transplantation and Clinical Regeneration in [place], [place] [address] [place] [address] Jessica Rousseau M.B.B.S. [address] [place] [phone] 08/13/2025 11:30 AM CDT Office Visit [facility] for Transplantation and Clinical Regeneration in [place], [place] [address] [place] [address] Jessica Rousseau M.B.B.S. [address] [place] [phone] documented as of this encounter Visit Diagnoses Diagnosis Leukemia Myeloid Chronic BCR/ABL Positive Remission (HCC) Transplant Bone Marrow Allogeneic (HCC) documented in this encounter Additional Health Concerns Infection Onset Date Last Indicated Resolved Time Protective Environment 03/02/2023 03/02/2023 Assessment Noted Time PHQ-9 Depression Total Score: 2 12/10/19 25 2:46 PM TYPE PHOTOGRAPHY SUPERVISOR documented as of this encounter Care Teams Reheater Relationship Specialty Start Date End Date Renzo Andres M.D. [address] [place] [address] [place] [address] PCP - General Family Medicine 04/25/23 documented as of this encounter
--- OUTSIDE RECORDS SUMMARY | 2025-07-02 02:28 | XMS_ITS | Encounter Summary ---
Author Organization [facility] Address [address] [place] [address] Care Team Providers Care Furnace Helper Name Role Phone Renzo Andres M.D. [...] things needed for daily living? No 06/12/2025 [facility] Utilities Answer Date Recorded In the past 12 months has th [employer] electric, gas, oil, or water company threatened to shut off services in your home? No 06/12/2025 Depression Answer Date Recor ded PHQ-9 Total Score (max 27) 2 12/10 Housing Stability Answer Date Recorded What is your living situation today? I have a [facility] place to live 06/12/2025 Education Answer Date Recorded What is the highest level of school you have completed or the highest degree you have received? Some college, no degree 04/24/2019 Comments No Sex and Gender Information Value Date Recorded Sex Assigned at Female 12/26/2018 8:37 PM CUSTODIAL MANAGER Legal Sex Female 2:43 PM CUSTODIAL MANAGER Gender Identity Female 12/26/2018 8:37 PM CUSTODIAL MANAGER Sexual Orientation Choose not to disclose 2020 3:46 PM CDT documented as of this encounter Plan of Treatment Upcoming Encounters Date Type Department Care Team (Latest Contact Info) Description 07/03/2025 8:00 AM CDT Telemedicine Department of Palliative Care in [place], [place] 200 [place] [phone] Yary Landa D.O. [address] [place] [phone] 07/15/2025 9:00 AM CDT Telemedicine [facility] [place] for Transplantation and Clinical Regeneration in [place], [place] 200 [place] [phone] Jessica Rousseau M.B.BKatalinaS. [address] [place] [phone] 08/11/2025 9:00 AM CDT Nurse Only Section of Infectious Diseases in [place], [place] [address] [place] [phone] Jessica Rousseau M.B.B.S. [address] [place] [phone] 08/11/2025 10:20 AM CDT Comprehensive Visit Division of Gastroenterology in [place], [place] [address] [place] [address] Jessica Rousseau M.B.B.S. [address] [place] [phone] 08/11/2025 1:00 PM CDT Clinical Support Department of Palliative Care in [place], [place] [address] [place] [address] Uma Aly APRN, C.N.P., M.S.N. [address] [place] [phone] 08/13/2025 10:00 AM CDT Lab Department of Laboratory Medicine and Pathology, [facility], in [place], [place] [address] [place] [phone] Jessica Rousseau M.B.B.S. [address] [place] [phone] 08/13/2025 10:30 AM CDT Office Visit Pedro [facility] [place] for Transplantation and Clinical Regeneration in [place], [place] [address] [place] [address] Jessica Rousseau M.B.B.S. [address] [place] [phone] 08/13/2025 11:00 AM CDT Nurse Only [facility] Transplantation and Clinical Regeneration in [place], [place] [address] [place] [address] Jessica Rousseau M.B.B.S. [address] [place] [address] 08/13/2025 11:30 AM CDT [facility] in [place], [place] [address] [place] [address] Jessica Rousseau M.B.B.S. [address] [place] [address] documented as of this encounter Visit Diagnoses Not on filedocumented in this encounter Additional Health Concerns Infection Onset Date Last Indicated Resolved Time Protective Environment 03/02/2023 03/02/2023 Assessment Noted Time PHQ-9 Depression Total Score: 2 12/10/19 25 2:46 PM CUSTODIAL MANAGER documented as of this encounter Care Teams Furnace Helper Relationship Specialty Start Date End Date Renzo Andres M.D. [address] [place] [phone] PCP - General Family Medicine 04/25/23 documented as of this encounter
--- OUTSIDE RECORDS SUMMARY | 2025-07-02 02:28 | XMS_ITS | Encounter Summary ---
Author Organization [facility] Address [address] [place] [address] Care Team Providers Care Public Health Educator Name Role Phone Renzo Andres M.D. Primary Care Provider [phone] Encounter Details Date Type Department Care Team (Late st Contact Info) Description 05/28/2025 Orders Only [facility], [facility], Ninth Floor [address] [place] [phone] Giselle Jean RKatalinaNKatalina Transplant Stem Cell (HCC) [...] things needed for daily living? No 06/12/2025 [facility] Utilities Answer Date Recorded In the past 12 months has th e electric, gas, oil, or water company threatened to shut off services in your home? No 06/12/2025 Depression Answer Date Recor ded PHQ-9 Total Score (max 27) 2 12/10 Housing Stability Answer Date Recorded What is your living situation today? I have a [facility] place to live 06/12/2025 Education Answer Date Recorded What is the highest level of school you have completed or the highest degree you have received? Some college, no degree 04/24/2019 Comments No Sex and Gender Information Value Date Recorded Sex Assigned at Female 12/26/2018 8:37 PM TABLE GAMES SHIFT MANAGER Legal Sex Female 2:43 PM TABLE GAMES SHIFT MANAGER Gender Identity Female 12/26/2018 8:37 PM TABLE GAMES SHIFT MANAGER Sexual Orientation Choose not to disclose 2020 3:46 PM CDT documented as of this encounter Plan of Treatment Upcoming Encounters Date Type Department Care Team (Latest Contact Info) Description 07/03/2025 8:00 AM CDT Telemedicine Department of Palliative Care in [place], [place] 200 [place] [phone] Yary Landa D.O. 200 [place] [address] 07/15/2025 9:00 AM CDT Telemedicine Pedro Fatima [place] for Transplantation and Clinical Regeneration in [place], [place] [address] [place] [address] Jessica Rousseau M.B.B.S. [address] [place] [phone] 08/11/2025 9:00 AM CDT Nurse Only Section of Infectious Diseases in [place], [place] [address] [place] [address] Jessica Rousseau M.B.B.S. [address] [place] [phone] 08/11/2025 10:20 AM CDT Comprehensive Visit Division of Gastroenterology in [place], [place] [address] [place] [address] Jessica Rousseau M.B.B.S. [address] [place] [phone] 08/11/2025 1:00 PM CDT Clinical Support Department of Palliative Care in [place], [place] [address] [place] [address] Uma Aly APRN, C.N.P., M.S.N. [address] [place] [phone] 08/13/2025 10:00 AM CDT Lab Department of Laboratory Medicine and Pathology, [facility], in [place], [place] [address] [place] [address] Jessica Rousseau M.B.B.S. [address] [place] [phone] 08/13/2025 10:30 AM CDT Office Visit Pedro [facility] Transplantation and Clinical Regeneration in [place], [place] [address] [place] [address] Jessica Rousseau M.B.B.S. [address] [place] [address] 08/13/2025 11:00 AM CDT Nurse Only [facility] Transplantation and Clinical Regeneration in [place], [place] [address] [place] [address] Jessica Rousseau M.B.B.S. [address] [place] [phone] 08/13/2025 11:30 AM CDT Office Visit [facility] Transplantation and Clinical Regeneration in [place], [place] [address] [place] [address] Jessica Rousseau M.B.B.S. [address] [place] [phone] documented as of this encounter Visit Diagnoses Diagnosis Transplant Stem Cell (HCC)- Primary documented in this encounter Additional Health Concerns Infection Onset Date Last Indicated Resolved Time Protective Environment 03/02/2023 03/02/2023 Assessment Noted Time PHQ-9 Depression Total Score: 2 12/10/19 25 2:46 PM TABLE GAMES SHIFT MANAGER documented as of this encounter Care Teams Public Health Educator Relationship Specialty Start Date End Date Renzo Andres M.D. [address] [place] [phone] PCP - General Family Medicine 04/25/23 documented as of this encounter
--- OUTSIDE RECORDS SUMMARY | 2025-07-02 02:28 | XMS_ITS | Encounter Summary ---
Author Organization [facility] Address [address] [place] [address] Care Team Providers Care Medical Affairs Director Name Role Phone Renzo Andres M.D. Primary Care Provider [phone] Encounter Details Date Type Department Care Team (Latest Contact Info) Description 05/26/2025 Clinical Communication Pedro Nazario [facility] for Transplantation and Clinical Regeneration in [place], [place] [address] [place] [phone] Jessica Rousseau M.B.B.S. [address] [place] [address] Social History Tobacco Use Types Packs/Day Years [...] [employer] [facility] 05/28/2025 Education Answer Date Recorded What is the highest level of school you have completed or the highest degree you have received? Some college, no degree 04/24/2019 Comments No Sex and Gender Information Value Date Recorded Sex Assigned at Female 12/26/2018 8:37 PM MANAGER AIR Legal Sex Female 2:43 PM MANAGER AIR Gender Identity Female 12/26/2018 8:37 PM MANAGER AIR Sexual Orientation Choose not to disclose 2020 3:46 PM CDT documented as of this encounter Miscellaneous Notes * Telephone Encounter - Tara Marin R.N., BMT-CN - 05/28/2025 2:20 PM CDT Information Discussed Called patient and informed her, per Dr. Rousseau, that she will be admitted for workup. She stated she would be to [place] around 330 or 4 PLAN Information/Education: patient/caller [...] CDT Telemedicine Department of Palliative Care in [place], [place] [address] [place] [phone] Yary Landa D.O. [address] [place] [phone] 07/15/2025 9:00 AM CDT Telemedicine [facility] for Transplantation and Clinical Regeneration in [place], [place] [address] [place] [phone] Jessica Rousseau M.B.B.S. [address] [place] [phone] 08/11/2025 9:00 AM CDT Nurse Only Section of Infectious Diseases in [place], [place] [address] [place] [phone] Jessica Rousseau M.B.B.S. [address] [place] [phone] 08/11/2025 10:20 AM CDT Comprehensive Visit Division of Gastroenterology in [address] [phone] Jessiac Rousseau M.B.B.S. [address] [place] [phone] 08/11/2025 1:00 PM CDT Clinical Support Department of Palliative Care in [place], [place] [address] [place] [phone] Uma Aly APRN, C.N.P., M.S.N. [address] [place] [phone] 08/13/2025 10:00 AM CDT Lab Department of Laboratory Medicine and Pathology, [facility], in [place], [place] [address] [place] [address] Jessica Rousseau M.B.B.S. [address] [place] [phone] 08/13/2025 10:30 AM CDT Office Visit [facility] Transplantation and Clinical Regeneration in [place], [place] [address] [place] [address] Jessica Rousseau M.B.B.S. [address] [place] [phone] 08/13/2025 11:00 AM CDT Nurse Only [facility] Transplantation and Clinical Regeneration in [place], [place] [address] [place] [address] Jessica Rousseau M.B.B.S. [address] [place] [phone] 08/13/2025 11:30 AM CDT Office Visit [facility] Transplantation and Clinical Regeneration in [place], [place] [address] [place] [phone] Jessica Rousseau M.B.B.S. [address] [place] [phone] documented as of this encounter Visit Diagnoses Not on filedocumented in this encounter Additional Health Concerns Infection Onset Date Last Indicated Resolved Time Protective Environment 03/02/2023 03/02/2023 Assessment Noted Time PHQ-9 Depression Total Score: 2 12/10/19 25 2:46 PM MANAGER AIR documented as of this encounter Care Teams Medical Affairs Director Relationship Specialty Start Date End Date Renzo Andres M.D. [address] [place], [place] [address] [phone] PCP - General Family Medicine 04/25/23 documented as of this encounter
--- OUTSIDE RECORDS SUMMARY | 2025-07-02 02:28 | XMS_ITS | Encounter Summary ---
Author Organization [facility] Address [address] [place] [address] Care Team Providers Care Paper Products Printer Name Role Phone Renzo Andres M.D. Primary Care Provider [phone] Reason for Visit * Reason Onset Date Comments 06/25 appts 05/20/2025 Encounter Details Date Type Department Care Team (Latest Contact Info) Description 05/20/2025 Clinical Communication [facility] in [place], [place] [address] [place] [address] Jessica Rousseau M.B.B.S. [address] [place] [address] 06/25 appts Social History Tobacco Use Types [...] things needed for daily living? No 06/12/2025 [facility] Utilities Answer Date Recorded In the past 12 months has e electric, gas, oil, or water company threatened to shut off services in your home? No 06/12/2025 Depression Answer Date Recor ded PHQ-9 Total Score (max 27) 2 12/10 Housing Stability Answer Date Recorded What is your living situation today? I have a [facility] place to live 06/12/2025 Education Answer Date Recorded What is the highest level of school you have completed or the highest degree you have received? Some college, no degree 04/24/2019 Comments No Sex and Gender Information Value Date Recorded Sex Assigned at Female 12/26/2018 8:37 PM BACK SEAM STITCHER Legal Sex Female 2:43 PM BACK SEAM STITCHER Gender Identity Female 12/26/2018 8:37 PM BACK SEAM STITCHER Sexual Orientation Choose not to disclose 2020 3:46 PM CDT documented as of this encounter Plan of Treatment Upcoming Encounters Date Type Department Care Team (Latest Contact Info) Description 07/03/2025 8:00 AM CDT Telemedicine Department of Palliative Care in [place], [place] [address] [place] [address] Yary Landa D.O. [address] [place] [address] 07/15/2025 9:00 AM CDT Telemedicine [facility] in [place], [place] [address] [place] [address] Jessica Rousseau M.B.B.S. [address] [place] [phone] 08/11/2025 9:00 AM CDT Nurse Only Section of Infectious Diseases in [place], [place] [address] [place] [phone] Jessica Rousseau M.B.B.S. [address] [place] [phone] 08/11/2025 10:20 AM CDT Comprehensive Visit Division of Gastroenterology in [place], [place] [address] [place] [phone] Jessica Rousseau M.B.B.S. [address] [place] [phone] 08/11/2025 1:00 PM CDT Clinical Support Department of Palliative Care in [place], [place] [address] [place] [phone] Uma Aly APRN, C.N.P., M.S.N. [address] [place] [phone] 08/13/2025 10:00 AM CDT Lab Department of Laboratory Medicine and Pathology, [facility], in [place], [place] [address] [place] [phone] Jessica Rousseau M.B.B.S. [address] [place] [phone] 08/13/2025 10:30 AM CDT [facility] in [place], [place] [address] [place] [address] Jessica Rousseau M.B.B.S. [address] [place] [phone] 08/13/2025 11:00 AM CDT Nurse Only [facility] Transplantation and Clinical Regeneration in [place], [place] [address] [place] [address] Jessica Rousseau M.B.B.S. [address] [place] [phone] 08/13/2025 11:30 AM CDT Office Visit [facility] Transplantation and Clinical Regeneration in [place], [place] [address] [place] [address] Jessica Rousseau M.B.B.S. [address] [place] [phone] documented as of this encounter Visit Diagnoses Not on filedocumented in this encounter Additional Health Concerns Infection Onset Date Last Indicated Resolved Time Protective Environment 03/02/2023 03/02/2023 Assessment Noted Time PHQ-9 Depression Total Score: 2 12/10/19 25 2:46 PM BACK SEAM STITCHER documented as of this encounter Care Teams Paper Products Printer Relationship Specialty Start Date End Date Renzo Andres M.D. [address] [place] [phone] PCP - General Family Medicine 04/25/23 documented as of this encounter
--- OUTSIDE RECORDS SUMMARY | 2025-07-02 02:28 | XMS_ITS | Encounter Summary ---
Author Organization [facility] Address [address] [place] [address] Care Team Providers Care Communications Associate Name Role Phone Renzo Andres M.D. Primary Care Provider Reason for Referral * Gastrointestinal (Routine) - Closed Specialty Diagnoses / Procedures Referred By Estefania t Referred To Contact Diagnoses Transplant Stem Cell (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) Procedures EGD (EsophagoGastroDuodenoscopy) Lito Pollock P.A.-C. [address] [place] [address] Phone: tel: fax: [facility] Referral ID Status Reason Start Date Expiration Date Visits Re quested Visits Authorized [id number] Closed 05/29/2025 08/29/2026 1 1 Encounter Details Date Type Department Care Team (Late st Contact Info) Description 05/29/2025 Orders Only [facility], Ninth Floor [address] [place] [address] Lito Pollock P.A.-C. [address] [place] [address] Leukemia Myeloid Chronic BCR/ABL Positive [...] things needed for daily living? No 06/12/2025 [facility] Utilities Answer Date Recorded In the past [address] [facility] [place] electric, gas, oil, or water company threatened to shut off services in your home? No 06/12/2025 Depression Answer Date Recor ded PHQ-9 Total Score (max 27) 2 12/10 Housing Stability Answer Date Recorded What is your living situation today? I have a [facility] place to live 06/12/2025 Education Answer Date Recorded What is the highest level of school you have completed or the highest degree you have received? Some college, no degree 04/24/2019 Comments No Sex and Gender Information Value Date Recorded Sex Assigned at Female 12/26/2018 8:37 PM DIE STORAGE CLERK Legal Sex Female 2:43 PM DIE STORAGE CLERK Gender Identity Female 12/26/2018 8:37 PM DIE STORAGE CLERK Sexual Orientation Choose not to disclose 2020 3:46 PM CDT documented as of this encounter Plan of Treatment Upcoming Encounters Date Type Department Care Team (Latest Contact Info) Description 07/03/2025 8:00 AM CDT Telemedicine Department of Palliative Care in [place], [place] [address] [place] [phone] Yary Landa D.O. [address] [place] [phone] 07/15/2025 9:00 AM CDT Telemedicine [facility] Aravind [facility] for Transplantation and Clinical Regeneration in [place], [place] [address] [place] [phone] Jessica Rousseau M.B.B.S. [address] [place] [phone] 08/11/2025 9:00 AM CDT Nurse Only Section of Infectious Diseases in [address] [phone] Jessica Rousseau M.B.B.S. [address] [place] [phone] 08/11/2025 10:20 AM CDT Comprehensive Visit Division of Gastroenterology in [place], [place] [address] [place] [phone] Jessica Rousseau M.B.B.S. [address] [place] [phone] 08/11/2025 1:00 PM CDT Clinical Support Department of Palliative Care in [place], [place] [address] [place] [phone] Uma Aly APRN, C.N.P., M.S.N. [address] [place] [address] 08/13/2025 10:00 AM CDT Lab Department of Laboratory Medicine and Pathology, [facility], in [place], [place] [address] [place] [address] Jessica Rousseau M.B.B.S. [address] [place] [phone] 08/13/2025 10:30 AM CDT Office Visit [facility] for Transplantation and Clinical Regeneration in [place], [place] [address] [place] [address] Jessica Rousseau M.B.B.S. [address] [place] [phone] 08/13/2025 11:00 AM CDT Nurse Only [facility] Transplantation and Clinical Regeneration in [place], [place] [address] [place] [address] Jessica Rousseau M.B.B.S. [address] [place] [phone] 08/13/2025 11:30 AM CDT Office Visit [facility] for Transplantation and Clinical Regeneration in [place], [place] [address] [place] [address] Jessica Rousseau M.B.B.S. [address] [place] [phone] documented as of this encounter Results * CMV DNA Detect / Quant, Plasma (06/03/2025 9:41 AM CDT) CMV DNA Detect/Quant, P Undetected Undetected IU/mL 06/03/2025 11:07 PM CDT [facility] Comment: Result in log IU/mL is Undetected. ----ADDITIONAL INFORMATION---- The quantification range of this assay is 35 to 10,000,000 IU/mL (1.54 log to 7.00 log IU/mL). Testing was performed using the lucrecia CMV test ([employer] Blood (Blood, Venous) 06/03/2025 9:41 AM CDT 06/03/2025 12:05 PM CDT Lito Pollock P.A.-C. LAB MICROBIOLOGY - BLOOD ORDER JANES Final Result [facility] [address] [place] [address] [facility] [address] [place] [address] [place] [place] [address] * Magnesium (06/03/2025 9:41 AM CDT) [facility] Magnesium, S 2.3 1.7 - 2.3 mg/dL 06/03/2025 10:41 AM CDT DTL Blood (Blood, Venous) 06/03/2025 9:41 AM CDT 06/03/2025 10:07 AM CDT Lito Pollock P.A.-C. LAB BLOOD ADD-ON Final Result [facility] [address] [place] [address], [facility] [place] [address] [place] [address] * LD (Lactate Dehydrogenase) (06/03/2025 9:41 AM CDT) [facility] Deanna LD 152 122 - 222 U/L 06/03/2025 11:04 AM CDT DTL Blood (Blood, Venous) 06/03/2025 9:41 AM CDT 06/03/2025 10:44 AM CDT us Lito Pollock P.A.-C. LAB BLOOD NON ADD-ON Final Res ult [facility] [address] [place] [address], [facility] [address] [place] [address] * Comprehensive Metabolic Panel (06/03/2025 9:41 AM CDT) [facility] Potassium, S 4.1 3.6 - 5.2 mmol/L [...] Pollock P.A.-C. LAB BLOOD ADD-ON Final Result [facility] [address] [place] [address], [facility] [place] [address] [place] [address] * (ABNORMAL) CBC with Differential, Blood (06/03/2025 [...] Pollock P.A.-C. LAB BLOOD ADD-ON Final Result [facility] 200 [place] [address], [facility] DTL [facility] 200 [place] [address] DHPM [facility] 200 [place] [address] documented in this encounter Visit Diagnoses Diagnosis Leukemia Myeloid Chronic BCR/ABL Positive Not Having Achieved Remission (HCC)- Primary Transplant Stem Cell (HCC) documented in this encounter Additional Health Concerns Infection Onset Date Last Indicated Resolved Time Protective Environment 03/02/2023 03/02/2023 Assessment Noted Time PHQ-9 Depression Total Score: 2 12/10/19 25 2:46 PM DIE STORAGE CLERK documented as of this encounter Care Teams Communications Associate Relationship Specialty Start Date End Date Renzo Andres M.D. [address] [place] [phone] PCP - General Family Medicine 04/25/23 documented as of this encounter
--- OUTSIDE RECORDS SUMMARY | 2025-07-02 02:28 | XMS_ITS ---
Author Organization [facility] Address [address] [place] [address] Care Team Providers Care Wire Drawing Die Maker Name Role Phone Renzo Andres M.D. Primary Care Provider [phone] Active Problems * This document contains information received from the source organization and may not represent a complete record from that organization. Patient Care Coordination No te Formatting of this note is d ifferent from the original. Survivorship and Health Maintenance Testing initiated at Day +100 timeframe, then repeated annually as needed: Bone Marrow Biopsy: 03/10/25 Sort Chimerism: 04/29/25 BCR/ABL 06/23/25 negative PFTs: 03/23/25 DEXA scan: 03/20/25 Vitamin Lipid [...] RSV: MMR: Local Lab/Provider: Dr. Ermelinda Pierre [address] [address] Problem Noted Date Diagnosed Date Abdominal Pain [...] (24 HOURS) (Mesnex) Therapy Complete Jessica Rousseau M.BKatalinaB.S. 1 of 1 cycle started [facility] Prophylaxis: Post-transplant cycloPHOSphamide / Mesna / Tacrolimus / Abatacept 12/10/19 25 12/02/2024 cycloPHOSphamide (Cytoxan) Unlisted Jessica Rousseau M.BKatalinaB.S. Treatment not started Infusion Therapy 1 Plan Name Start Date Discontinue Date Treatment Medications Discontinue Reason Plan Provider leuprolide (LUPRON) 12/02/2024 04/22/2025 No medications scheduled. Therapy Complete Jessica Rousseau M.BKatalinaB.S. LEUPROLIDE (LUPRON) 10/25/2021 10/09/2023 No medications scheduled. Therapy Complete Stephen Wallace M.B.B.S. MEDICATION AT INFUSION THERAPY 12/17/2018 03/20/2019 No medications scheduled. Therapy Complete Kristin Fernandez R.N. Infusion Therapy 2 Plan Name Start Date Discontinue Date Treatment Medications Discontinue Reason Plan Provider electrolyte administration 01/16/2025 01/16/2025 No medications scheduled. Therapy Complete Carlee Armas APRN, C.N.P., D.N.P., M.S.N. electrolyte administration 01/13/2025 01/13/2025 No medications scheduled. Therapy Complete Carlee Armas APRN C.N.P., D.N.P., M.S.N. pentamidine (NEBUPENT) Inhaled 12/08/2024 [...] [facility] Contact Allo PBSC Txp Active Day 204 (12/10/24) [facility] UnrelatedMat ch Grade: 8/8HLA DP Match: Permissive Mismatch Latest : Not docume ntedMa x: Not docume nted Latest: Not document edMax: Not document ed Nitesh GodoyB.S. Phone: Fax: [email or web address] * Cell Therapy Appointments (06/01/2025 - 08/02/2025) When Visit Type With Description 06/03/2025 Appointment TXP BMT - MargaritaNadege duval Transpla nt Stem Cell (HCC) (Primary Dx) 06/07/2025 Hydration Therapy TXP BMT - Landen Chinchilla Transplant Bone Marrow Allogeneic (HCC) (Primary Dx); Transplant Stem Cell (HCC); Pain Pleuritic Chest; Other Chest Pain; Leukemia Myeloid Chronic BCR/ABL Positive Remission (HCC) 06/10/2025 Appointment TXP BMT - Analia Anthony APRN, C.N.P.; Elise [...] Canceled (Clini c: Request) 06/25/2025 Appointment TXP BMT - Devi Rousseau Canceled (Clinic: Earlier Appointment) 06/30/2025 Appointment TXP BMT Devi Zarco Transplan t Bone Marrow Allogeneic (HCC) (Primary Dx) Lifetime Dose Tracking * Chemical Lifetime Dose [...]
--- OUTSIDE RECORDS SUMMARY | 2025-07-02 02:28 | XMS_ITS | Encounter Summary ---
Author Organization [facility] Address [address] [place] [address] Care Team Providers Care Guitar Maker Name Role Phone Renzo Andres M.D. Primary Care Provider Encounter Details Date Type Department Care Team (Late st Contact Info) Description 05/31/2025 Clinical Communication [facility], Ninth Floor [address] [place] [phone] Jennyfer Santos R.NKatalina Social History Tobacco Use Types Packs/Day Years Used Date Smoking Tobacco: Never Smokeless Tobacco: Never Alcohol Use Standard Drinks/Week Comments Yes 0 (1 standard drink = 0.6 oz pur e alcohol) social [facility] Utilities Answer Date Recorded In the past 12 months has e [employer] gas, oil, or water [employer] threatened to shut off services in your [...] Sex Assigned at Female 12/26/2018 8:37 PM SUBSTANCE ADDICTION COORDINATOR Legal Sex Female 2:43 PM SUBSTANCE ADDICTION COORDINATOR Gender Identity Female 12/26/2018 8:37 PM SUBSTANCE ADDICTION COORDINATOR Sexual Orientation Choose not to disclose [...] CDT Telemedicine Department of Palliative Care in [place], [place] [address] [place] [phone] Yary Landa D.O. [address] [place] [phone] 07/15/2025 9:00 AM CDT Telemedicine [facility] for Transplantation and Clinical Regeneration in [place], [place] [address] [place] [phone] Jessica Rousseau M.B.B.S. [address] [place] [phone] 08/11/2025 9:00 AM CDT Nurse Only Section of Infectious Diseases in [place], [place] [address] [place] [phone] Jessica Rousseau M.B.B.S. [address] [place] [phone] 08/11/2025 10:20 AM CDT Comprehensive Visit Division of Gastroenterology in [place], [place] [address] [place] [phone] Jessica Rousseau M.B.B.S. [address] [place] [phone] 08/11/2025 1:00 PM CDT Clinical Support Department of Palliative Care in [place], [place] [address] [place] [phone] Uma Aly APRN, C.N.P., M.S.N. [address] [place] [phone] 08/13/2025 10:00 AM CDT Lab Department of Laboratory Medicine and Pathology, [facility], in [place], [place] [address] [place] [address] Jessica Rousseau M.B.B.S. [address] [place] [phone] 08/13/2025 10:30 AM CDT Office Visit [facility] Transplantation and Clinical Regeneration in [place], [place] [address] [place] [address] Jessica Rousseau M.B.B.S. [address] [place] [phone] 08/13/2025 11:00 AM CDT Nurse Only [facility] Transplantation and Clinical Regeneration in [place], [place] [address] [place] [address] Jessica Rousseau M.B.B.S. [address] [place] [phone] 08/13/2025 11:30 AM CDT Office Visit [facility] Transplantation and Clinical Regeneration in [place], [place] [address] [place] [phone] Jessica Rousseau M.B.B.S. [address] [place] [phone] documented as of this encounter Visit Diagnoses Not on filedocumented in this encounter Additional Health Concerns Infection Onset Date Last Indicated Resolved Time Protective Environment 03/02/2023 03/02/2023 Assessment Noted Time PHQ-9 Depression Total Score: 2 12/10/19 25 2:46 PM SUBSTANCE ADDICTION COORDINATOR documented as of this encounter Care Teams Guitar Maker Relationship Specialty Start Date End Date Renzo Andres M.D. [address] [place] [phone] PCP - General Family Medicine 04/25/23 documented as of this encounter
--- OUTSIDE RECORDS SUMMARY | 2025-07-02 02:28 | XMS_ITS | Encounter Summary ---
Author Organization [facility] Address [address] [place] [address] Care Team Providers Care Home Demonstration Agent Name Role Phone Renzo Andres M.D. Primary Care Provider Reason for Visit * Reason Onset Date Comments Prescreen Immunization Review 05/26/2025 Encounter Details Date Type Department Care Team (Latest Contact Info) Description 05/26/2025 Clinical Communication Section of Infectious Diseases in [place], [place] [address] [place] [address] Jennifer Marx RKatalinaNKatalina [address] [place] [address] Prescreen Immunization Review Social History Tobacco Use [...] your living situation today? I have a [facility] place to live 12/19/2024 Education Answer Date Recorded What is the highest level of school you have completed or the highest degree you have received? Some college, no degree 04/24/2019 Comments No Sex and Gender Information Value Date Recorded Sex Assigned at Female 12/26/2018 8:37 PM TURRET PUNCH PRESS OPERATOR Legal Sex Female 2:43 PM TURRET PUNCH PRESS OPERATOR Gender Identity Female 12/26/2018 8:37 PM TURRET PUNCH PRESS OPERATOR Sexual Orientation Choose not to disclose [...] CDT Telemedicine Department of Palliative Care in [place], [place] [address] [place] [phone] Yary Landa D.O. [address] [place] [phone] 07/15/2025 9:00 AM CDT Telemedicine Pedro Aravind sanchez [facility] for Transplantation and Clinical Regeneration in [place], [place] [address] [place] [phone] Jessica Rousseau M.B.B.S. [address] [place] [phone] 08/11/2025 9:00 AM CDT Nurse Only Section of Infectious Diseases in [address] [phone] Jessica Rousseau M.B.B.S. [address] [place] [phone] 08/11/2025 10:20 AM CDT Comprehensive Visit Division of Gastroenterology in [place], [place] [address] [place] [phone] Jessica Rousseau M.B.B.S. [address] [place] [phone] 08/11/2025 1:00 PM CDT Clinical Support Department of Palliative Care in [place], [place] [address] [place] [phone] Uma Aly APRN, C.N.P., M.S.N. 200 [place] [phone] 08/13/2025 10:00 AM CDT Lab Department of Laboratory Medicine and Pathology, [facility], in [place], [place] [address] [place] [address] Jessica Rousseau M.B.B.S. [address] [place] [phone] 08/13/2025 10:30 AM CDT Office Visit [facility] Transplantation and Clinical Regeneration in [place], [place] [address] [place] [address] Jessica Rousseau M.B.B.S. [address] [place] [phone] 08/13/2025 11:00 AM CDT Nurse Only [facility] Transplantation and Clinical Regeneration in [place], [place] [address] [place] [address] Jessica Rousseau M.B.B.S. [address] [place] [phone] 08/13/2025 11:30 AM CDT Office Visit [facility] Transplantation and Clinical Regeneration in [place], [place] [address] [place] [address] Jessica Rousseau M.B.B.S. [address] [place] [phone] documented as of this encounter Visit Diagnoses Not on filedocumented in this encounter Additional Health Concerns Infection Onset Date Last Indicated Resolved Time Protective Environment 03/02/2023 03/02/2023 Assessment Noted Time PHQ-9 Depression Total Score: 2 12/10/19 25 2:46 PM TURRET PUNCH PRESS OPERATOR documented as of this encounter Care Teams Home Demonstration Agent Relationship Specialty Start Date End Date Renzo Andres M.D. [address] [place] [address] [place] [address] PCP - General Family Medicine 04/25/23 documented as of this encounter
--- OUTSIDE RECORDS SUMMARY | 2025-07-02 02:28 | XMS_ITS | Encounter Summary ---
Author Organization [facility] Address [address] [place] [address] Care Team Providers Care Clerical Secretary Name Role Phone Renzo Andres M.D. Primary Care Provider Encounter Details Date Type Department Care Team (Late st Contact Info) Description 05/27/2025 Orders Only Department of Palliative Care in [place], [place] [address] [place] [phone] Felicia Watt, KARON, C.N.P., M.S.N. [address] [place] [phone] Social History Tobacco Use Types Packs/Day Years [...] a [facility] place to live 05/28/2025 Education Answer Date Recorded What is the highest level of school you have completed or the highest degree you have received? Some college, no degree 04/24/2019 Comments No Sex and Gender Information Value Date Recorded Sex Assigned at Female 12/26/2018 8:37 PM RUBBER STAMP DIES INSPECTOR Legal Sex Female 2:43 PM RUBBER STAMP DIES INSPECTOR Gender Identity Female 12/26/2018 8:37 PM RUBBER STAMP DIES INSPECTOR Sexual Orientation Choose not to disclose 2020 3:46 PM CDT documented as of this encounter Plan of Treatment Upcoming Encounters Date Type Department Care Team (Latest Contact Info) Description 07/03/2025 8:00 AM CDT Telemedicine Department of Palliative Care in [place], [place] 200 [place] [address] Yary Landa D.O. 200 [place] [address] 07/15/2025 9:00 AM CDT Telemedicine Pedro [facility] for Transplantation and Clinical Regeneration in [place], [place] [address] [place] [phone] Jessica Rousseau M.B.B.S. [address] [place] [phone] 08/11/2025 9:00 AM CDT Nurse Only Section of Infectious Diseases in [place], [place] [address] [place] [phone] Jessica Rousseau M.B.B.S. [address] [place] [phone] 08/11/2025 10:20 AM CDT Comprehensive Visit Division of Gastroenterology in [place], [place] [address] [place] [phone] Jessica Rousseau M.B.B.S. [address] [place] [phone] 08/11/2025 1:00 PM CDT Clinical Support Department of Palliative Care in [place], [place] [address] [place] [phone] Uma Aly APRN, C.N.P., M.S.N. [address] [place] [phone] 08/13/2025 10:00 AM CDT Lab Department of Laboratory Medicine and Pathology, [facility], in [place], [place] [address] [place] [address] Jessica Rousseau M.B.B.S. [address] [place] [phone] 08/13/2025 10:30 AM CDT [facility] in [place], [place] [address] [place] [address] Jessica Rousseau M.B.B.S. [address] [place] [phone] 08/13/2025 11:00 AM CDT Nurse Only [facility] Transplantation and Clinical Regeneration in [place], [place] [address] [place] [address] Jessica Rousseau M.B.B.S. [address] [place] [phone] 08/13/2025 11:30 AM CDT Office Visit [facility] Transplantation and Clinical Regeneration in [place], [place] [address] [place] [address] Jessica Rousseau M.B.B.S. [address] [place] [phone] documented as of this encounter Visit Diagnoses Not on filedocumented in this encounter Additional Health Concerns Infection Onset Date Last Indicated Resolved Time Protective Environment 03/02/2023 03/02/2023 Assessment Noted Time PHQ-9 Depression Total Score: 2 12/10/19 25 2:46 PM RUBBER STAMP DIES INSPECTOR documented as of this encounter Care Teams Clerical Secretary Relationship Specialty Start Date End Date Renzo Andres M.D. [address] [place] [address] [place] [address] PCP - General Family Medicine 04/25/23 documented as of this encounter
--- OUTSIDE RECORDS SUMMARY | 2025-07-02 02:29 | XMS_ITS | Encounter Summary ---
Author Organization [facility] Address [address] [place] [id number] Care Team Providers Care Harvesting Manager Name Role Phone Renzo Andres M.D. Primary Care Provider Reason for Referral * Outpatient (Routine) - Authorized Specialty Diagnoses / Procedures Referred By Contac t Referred To Contact Pharmacy Arlen James APRN, C.N.P., D.N.P. [address] [place] [phone] Phone: tel: fax: [facility] Referral ID Status Reason Start Date Expiration Date V isits Requested Visits Authorized [id number] Authorized 06/08/2025 12/08/2026 1 1 Scheduling Instructions Please schedule with pharmacist for 30 minutes. Please schedule ANUPAM/RN joint visit on 06/10/25. Encounter Details Date Type Department Care Team (Latest Contact Info) Description 06/08/2025 Clinical Communication Pedro Fatima [facility] for Transplantation and Clinical Regeneration in [place], [place] [address] [place] [phone] Jessica Rousseau M.B.B.S. [address] [place] [address] Social History Tobacco Use Types Packs/Day Years [...] needed for daily living? No 06/12/2025 [facility] Utilities Answer Date Recorded In the past 12 months has [facility] electric, gas, oil, or water company threatened to shut off services in your home? No 06/12/2025 Depression Answer Date Recor ded PHQ-9 Total Score (max 27) 2 12/10 Housing Stability Answer Date Recorded What is your living situation today? I have a [facility] place to live 06/12/2025 Education Answer Date Recorded What is the highest level of school you have completed or the highest degree you have received? Some college, no degree 04/24/2019 Comments No Sex and Gender Information Value Date Recorded Sex Assigned at Female 12/26/2018 8:37 PM CNC OPERATOR PROGRAMMER Legal Sex Female 2:43 PM CNC OPERATOR PROGRAMMER Gender Identity Female 12/26/2018 8:37 PM CNC OPERATOR PROGRAMMER Sexual Orientation Choose not to disclose [...] today as we cannot schedule this at [facility] locations. She will let us know if she is having rouble with this. She is willing to be seen in clinic on Sunday06/10/25 since she Danish already be in [facility] for other appointments. Will request this and send orders to [facility] group for review. documented in this encounter Plan of Treatment Upcoming Encounters Date Type Department Care Team (Latest Contact Info) Description 07/03/2025 8:00 AM CDT Telemedicine Department of Palliative Care in [place], [place] [address] [place] [phone] Yary Landa D.O. [address] [place] [phone] 07/15/2025 9:00 AM CDT Telemedicine Pedro Fatima Toledo for Transplantation and Clinical Regeneration in [place], [place] [address] [place] [address] Jessica Rousseau M.B.B.S. [address] [place] [phone] 08/11/2025 9:00 AM CDT Nurse Only Section of Infectious Diseases in [place], [place] [address] [place] [address] Jessica Rousseau M.B.B.S. [address] [place] [phone] 08/11/2025 10:20 AM CDT Comprehensive Visit Division of Gastroenterology in [place], [place] [address] [place] [phone] Jessica Rousseau M.B.B.S. [address] [place] [phone] 08/11/2025 1:00 PM CDT Clinical Support Department of Palliative Care in [place], [place] [address] [place] [address] Uma Aly APRN, C.N.P., M.S.N. [address] [place] [phone] 08/13/2025 10:00 AM CDT Lab Department of Laboratory Medicine and Pathology, [facility], in [place], [place] [address] [place] [address] Jessica Rousseau M.B.B.S. [address] [place] [phone] 08/13/2025 10:30 AM CDT [facility] in [place], [place] [address] [place] [address] Jessica Rousseau M.B.B.S. [address] [place] [address] 08/13/2025 11:00 AM CDT Nurse Only Pedro sanchez [facility] Transplantation and Clinical Regeneration in [place], [place] [address] [place] [address] Jesisca Rousseau M.B.B.S. [address] [place] [phone] 08/13/2025 11:30 AM CDT Office Visit Pedro sanchez [facility] Transplantation and Clinical Regeneration in [place], [place] [address] [place] [address] Jessica Rousseau M.B.B.S. [address] [place] [phone] Scheduled Orders Name Type Priority Associated Diagnoses [...] Total Score: 2 12/10/19 25 2:46 PM CNC OPERATOR PROGRAMMER documented as of this encounter Care Teams Harvesting Manager Relationship Specialty Start Date End Date Renzo Andres M.D. [address] [place] [phone] PCP - General Family Medicine 04/25/23 documented as of this encounter
--- OUTSIDE RECORDS SUMMARY | 2025-07-02 02:29 | XMS_ITS | Encounter Summary ---
Author Organization [facility] Address [address] [place] [address] Care Team Providers Care Bisque Cleaner Name Role Phone Renzo Andres M.D. Primary Care Provider Reason for Visit * Reason Onset Date Comments Lab Monitoring 05/11/2025 05/08/2025 Encounter Details Date Type Department Care Team (Latest Contact Info) Description 05/11/2025 Clinical Communication [facility] in [place], [place] [address] [place] [address] Arely Taylor, R.N. [address] [place] [phone] Lab Monitoring (05/08/2025) Social History Tobacco Use [...] things needed for daily living? No 06/12/2025 [facility] Utilities Answer Date Recorded In the past 12 months has [employer], gas, oil, or water [email or web address] threatened to shut off services in your home? No 06/12/2025 Depression Answer Date Recor ded PHQ-9 Total Score (max 27) 2 12/10 Housing Stability Answer Date Recorded What is your living situation today? I have a [facility] place to live 06/12/2025 Education Answer Date Recorded What is the highest level of school you have completed or the highest degree you have received? Some college, no degree 04/24/2019 Comments No Sex and Gender Information Value Date Recorded Sex Assigned at Female 12/26/2018 8:37 PM FLATBED PRESS OPERATOR Legal Sex Female 2:43 PM FLATBED PRESS OPERATOR Gender Identity Female 12/26/2018 8:37 PM FLATBED PRESS OPERATOR Sexual Orientation Choose not to [...] in three weeks. - Local labs at [facility] in 10 days. BMT Allogenic transplant date: 12/10/2024 (152 days) Lab frequency: weekly Next BMT visit: 05/20/2025 Outside labs from 05/08/2025 are located in the Labs section of [employer] [facility] [employer]. Labs pending: None Resulted Labs: Recent Labs [...] CDT Telemedicine Department of Palliative Care in [place], [place] [address] [place] [phone] Yary Landa D.O. [address] [place] [phone] 07/15/2025 9:00 AM CDT Telemedicine Pedro Aravind sanchez [facility] for Transplantation and Clinical Regeneration in [place], [place] [address] [place] [phone] Jessica Rousseau M.B.B.S. [address] [place] [phone] 08/11/2025 9:00 AM CDT Nurse Only Section of Infectious Diseases in [place], [place] [address] [place] [phone] Jessica Rousseau M.B.B.S. [address] [place] [phone] 08/11/2025 10:20 AM CDT Comprehensive Visit Division of Gastroenterology in [place], [place] [address] [place] [phone] Jessica Rousseau M.B.B.S. [address] [place] [phone] 08/11/2025 1:00 PM CDT Clinical Support Department of Palliative Care in [place], [place] [address] [place] [phone] Uma Aly APRN, C.N.P., M.S.N. [address] [place] [phone] 08/13/2025 10:00 AM CDT Lab Department of Laboratory Medicine and Pathology, [facility], in [place], [place] [address] [place] [phone] Jessica Rousseau M.B.B.S. [address] [place] [phone] 08/13/2025 10:30 AM CDT [facility] in [place], [place] [address] [place] [phone] Jessica Rousseau M.B.B.S. [address] [place] [phone] 08/13/2025 11:00 AM CDT Nurse Only Pedro [facility] in [place], [place] [address] [place] [phone] Jessica Rousseau M.B.B.S. [address] [place] [phone] 08/13/2025 11:30 AM CDT [facility] in [place], [place] [address] [place] [address] Jessica Rousseau M.B.B.S. 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 [address] [place] [phone] PCP - General Family Medicine 04/25/23 documented as of this encounter
--- OUTSIDE RECORDS SUMMARY | 2025-07-02 02:29 | XMS_ITS | Encounter Summary ---
Author Organization [facility] Address [address] [place] [address] Care Team Providers Care Real Estate Instructor Name Role Phone Renzo Andres M.D. Primary Care Provider Encounter Details Date Type Department Care Team (Latest Contact Info) Description 04/20/[address] [facility] for Transplantation and Clinical Regeneration in [place], [place] [address] [place] [address] Tara Marin R.N., BMT-CN [address] [place] [address] Social History Tobacco Use Types Packs/Day Years Used Date Smoking Tobacco: Never Smokeless Tobacco: Never Alcohol Use Standard Drinks/Week Comments Yes 0 (1 standard drink = 0.6 oz pur e alcohol) social [facility] Utilities Answer Date Recorded In the past [...] [employer] place to live 12/19/2024 Education Answer Date Recorded What is the highest level of school you have completed or the highest degree you have received? Some college, no degree 04/24/2019 Comments No Sex and Gender Information Value Date Recorded Sex Assigned at Female 12/26/2018 8:37 PM ADMINISTRATIVE SUPPORT CLERK Legal Sex Female 2:43 PM ADMINISTRATIVE SUPPORT CLERK Gender Identity Female 12/26/2018 8:37 PM ADMINISTRATIVE SUPPORT CLERK Sexual Orientation Choose not to disclose 2020 3:46 PM CDT documented as of this encounter Miscellaneous Notes * Telephone Encounter - Tara Marin R.N., BMT-CN - 04/20/2025 3:[address] Rousseau, Outside labs from 04/20/25 are located in the Labs section of [employer]. Labs pending: none Resulted Labs: Recent Labs [...] up a video visit follow-up with an SCANNING CLERK on Ch 9 to further discuss symptoms [...] CDT Telemedicine Department of Palliative Care in [place], [place] [address] [place] [phone] Yary Landa D.O. [address] [place] [phone] 07/15/2025 9:00 AM CDT Telemedicine Pedro Aravind [facility] for Transplantation and Clinical Regeneration in [place], [place] [address] [place] [phone] Jessica Rousseau M.B.B.S. [address] [place] [phone] 08/11/2025 9:00 AM CDT Nurse Only Section of Infectious Diseases in [place], [place] [address] [place] [phone] Jessica Rousseau M.B.B.S. [address] [place] [phone] 08/11/2025 10:20 AM CDT Comprehensive Visit Division of Gastroenterology in [place], [place] [address] [place] [phone] Jessica Rousseau M.B.B.S. [address] [place] [address] 08/11/2025 1:00 PM CDT Clinical Support Department of Palliative Care in [place], [place] [address] [place] [address] Uma Aly APRN, C.N.P., M.S.N. [address] [place] [phone] 08/13/2025 10:00 AM CDT Lab Department of Laboratory Medicine and Pathology, [facility] in [place], [place] [address] [place] [address] Jessica Rousseau M.B.B.S. [address] [place] [phone] 08/13/2025 10:30 AM CDT [facility] in [place], [place] [address] [place] [address] Jessica Rousseau M.B.B.S. [address] [place] [phone] 08/13/2025 11:00 AM CDT Nurse Only [facility] for Transplantation and Clinical Regeneration in [place], [place] [address] [place] [address] Jessica Rousseau M.B.B.S. [address] [place] [phone] 08/13/2025 11:30 AM CDT Office [facility]eneration in [place], [place] [address] [place] [address] Jessica Rousseau M.B.B.S. [address] [place] [address] documented as of this encounter Visit Diagnoses Not on filedocumented in this encounter Additional Health Concerns Infection Onset Date Last Indicated Resolved Time Protective Environment 03/02/2023 03/02/2023 Assessment Noted Time PHQ-9 Depression Total Score: 2 12/10/19 25 2:46 PM ADMINISTRATIVE SUPPORT CLERK documented as of this encounter Care Teams Real Estate Instructor Relationship Specialty Start Date End Date Renzo Andres M.D. [address] [place] [phone] PCP - General Family Medicine 04/25/23 documented as of this encounter
--- OUTSIDE RECORDS SUMMARY | 2025-07-02 02:29 | XMS_ITS | Encounter Summary ---
Author Organization [facility] Address [address] [place] [address] Care Team Providers Care Certified Corporate Travel Executive Name Role Phone Renzo Andres M.D. Primary Care Provider [phone] Reason for Visit * Reason Onset Date Comments Scheduling 04/29/2025 Encounter Details Date Type Department Care Team (Late st Contact Info) Description 04/29/2025 Clinical Communication Division of Hematology in [place], [place] [address] [place] [phone] Jessica Rousseau M.B.B.S. [address] [place] [phone] Scheduling Social History Tobacco Use Types Packs/Day Years Used Date Smoking Tobacco: Never Smokeless Tobacco: Never Alcohol Use Standard Drinks/Week Comments Yes 0 (1 standard drink = 0.6 oz pur e alcohol) social [facility] Utilities Answer Date Recorded In the past 12 months has e [employer], gas, oil, or water company threatened to [...] a [facility] place to live 05/28/2025 Education Answer Date Recorded What is the highest level of school you have completed or the highest degree you have received? Some college, no degree 04/24/2019 Comments No Sex and Gender Information Value Date Recorded Sex Assigned at Female 12/26/2018 8:37 PM BASE WAD OPERATOR ADJUSTER Legal Sex Female 2:43 PM BASE WAD OPERATOR ADJUSTER Gender Identity Female 12/26/2018 8:37 PM BASE WAD OPERATOR ADJUSTER Sexual Orientation Choose not to disclose 2020 3:46 PM CDT documented as of this encounter Plan of Treatment Upcoming Encounters Date Type Department Care Team (Latest Contact Info) Description 07/03/2025 8:00 AM CDT Telemedicine Department of Palliative Care in [place], [place] 200 [place] [address] Yary Landa D.O. 200 [place] [address] 07/15/2025 9:00 AM CDT [facility]medicine [facility] in [place], [place] [address] [place] [phone] Jessica Rousseau M.B.B.S. [address] [place] [phone] 08/11/2025 9:00 AM CDT Nurse Only Section of Infectious Diseases in [place], [place] [address] [place] [phone] Jessica Rousseau M.B.B.S. [address] [place] [phone] 08/11/2025 10:20 AM CDT Comprehensive Visit Division of Gastroenterology in [place], [place] [address] [place] [phone] Jessica Rousseau M.B.B.S. [address] [place] [phone] 08/11/2025 1:00 PM CDT Clinical Support Department of Palliative Care in [place], [place] [address] [place] [phone] Uma Aly APRN, C.N.P., M.S.N. [address] [place] [phone] 08/13/2025 10:00 AM CDT Lab Department of Laboratory Medicine and Pathology, [facility], in [place], [place] [address] [place] [phone] Jessica Rousseau M.B.B.S. [address] [place] [phone] 08/13/2025 10:30 AM CDT Office Visit Pedro sanchez [facility] for Transplantation and Clinical Regeneration in [place], [place] [address] [place] [address] Jessica Rousseau M.B.B.S. [address] [place] [phone] 08/13/2025 11:00 AM CDT [facility] in [place], [place] [address] [place] [address] Jessica Rousseau M.B.B.S. [address] [place] [phone] 08/13/2025 11:30 AM CDT [facility] in [place], [place] [address] [place] [address] Jessica Rousseau M.B.B.S. [address] [place] [phone] documented as of this encounter Visit Diagnoses Not on filedocumented in this encounter Additional Health Concerns Infection Onset Date Last Indicated Resolved Time Protective Environment 03/02/2023 03/02/2023 Assessment Noted Time PHQ-9 Depression Total Score: 2 12/10/19 25 2:46 PM BASE WAD OPERATOR ADJUSTER documented as of this encounter Care Teams Certified Corporate Travel Executive Relationship Specialty Start Date End Date Renzo Andres M.D. [address] [place] [phone] PCP - General Family Medicine 04/25/23 documented as of this encounter
--- OUTSIDE RECORDS SUMMARY | 2025-07-02 02:29 | XMS_ITS | Encounter Summary ---
Author Organization [facility] Address [address] [place] [address] Care Team Providers Care Home Health Care Case Manager Name Role Phone Renzo Andres M.D. Primary Care Provider Reason for Visit * Reason Onset Date Comments Lab Monitoring 06/08/2025 Encounter Details Date Type Department Care Team (Latest Contact Info) Description 06/08/2025 Clinical Communication [facility] Clinical [facility]eneration in [place], [place] [address] [place] [address] Jessica Rousseau M.B.B.S. [address] [place] [address] Lab Monitoring Social History Tobacco Use Types Packs/Day Years Used Date Smoking Tobacco: Never Smokeless Tobacco: Never Alcohol Use Standard Drinks/Week Comments Yes 0 (1 standard drink = 0.6 oz pur e alcohol) social [facility] Utilities Answer Date Recorded In [...] have a [facility] place to live 05/28/2025 Education Answer Date Recorded What is the highest level of school you have completed or the highest degree you have received? Some college, no degree 04/24/2019 Comments No Sex and Gender Information Value Date Recorded Sex Assigned at Female 12/26/2018 8:37 PM FITNESS PLAN COORDINATOR Legal Sex Female 2:43 PM FITNESS PLAN COORDINATOR Gender Identity Female 12/26/2018 8:37 PM FITNESS PLAN COORDINATOR Sexual Orientation Choose not to disclose [...] CDT Telemedicine Department of Palliative Care in [place], [place] [address] [place] [address] Yary Landa D.O. [address] [place] [phone] 07/15/2025 9:00 AM CDT Telemedicine Pedro Aravind [facility] for Transplantation and Clinical Regeneration in [place], [place] [address] [place] [address] Jessica Rousseau M.B.B.S. [address] [place] [phone] 08/11/2025 9:00 AM CDT Nurse Only Section of Infectious Diseases in [place], [place] [address] [place] [address] Jessica Rousseau M.B.B.S. [address] [place] [phone] 08/11/2025 10:20 AM CDT Comprehensive Visit Division of Gastroenterology in [place], [place] [address] [place] [address] Jessica Rousseau M.B.B.S. [address] [place] [phone] 08/11/2025 1:00 PM CDT Clinical Support Department of Palliative Care in [place], [place] [address] [place] [address] Uma Aly APRN, C.N.P., M.S.N. [address] [place] [phone] 08/13/2025 10:00 AM CDT Lab Department of Laboratory Medicine and Pathology, [facility], in [place], [place] [address] [place] [address] Jessica Rousseau M.B.B.S. [address] [place] [phone] 08/13/2025 10:30 AM CDT Office Visit [facility] Clinical [facility]eneration in [place], [place] [address] [place] [address] Jessica Rousseau M.B.B.S. [address] [place] [phone] 08/13/2025 11:00 AM CDT Nurse Only Pedro Lanza [facility] Transplantation and Clinical Regeneration in [place], [place] [address] [place] [address] Jessica Rousseau M.B.B.S. [address] [place] [address] 08/13/2025 11:30 AM CDT Office Visit Pedro Lanza la[facility] Transplantation and Clinical Regeneration in [place], [place] [address] [place] [address] Jessica Rousseau M.B.B.S. [address] [place] [address] documented as of this encounter Visit Diagnoses [...] Total Score: 2 12/10/19 25 2:46 PM FITNESS PLAN COORDINATOR documented as of this encounter Care Teams Home Health Care Case Manager Relationship Specialty Start Date End Date Renzo Andres M.D. [address] [place] [phone] PCP - General Family Medicine 04/25/23 documented as of this encounter
[2025-07-02 02:30] VITALS: BP 138/74; PULSE 85; RESP 20; TEMP 36.7
--- OUTSIDE RECORDS SUMMARY | 2025-07-02 02:30 | XMS_ITS | Encounter Summary ---
Author Organization [facility] Address [address] [place] [address] Care Team Providers Care Sanding Machine Tender Name Role Phone Renzo Andres M.D. Primary Care Provider Encounter Details Date Type Department Care Team (Late st Contact Info) Description 06/27/2025 Orders Only [facility], [facility], Ninth Floor [address] [place] [address] Carlee Armas APRN, C.N.P., D.N.P., M.S.N. [address] [place] [phone] Abdominal Pain (Primary Dx); Transplant Stem Cell [...] things needed for daily living? No 06/24/2025 [facility] Utilities Answer Date Recorded In the past 12 months has th e electric, gas, oil, or water company threatened to shut off services in your home? No 06/24/2025 Depression Answer Date Recor ded PHQ-9 Total Score (max 27) 2 12/10 Housing Stability Answer Date Recorded What is your living situation today? I have a [facility] place to live 06/24/2025 Education Answer Date Recorded What is the highest level of school you have completed or the highest degree you have received? Some college, no degree 04/24/2019 Comments No Sex and Gender Information Value Date Recorded Sex Assigned at Female 12/26/2018 8:37 PM NEWS PRODUCTION SUPERVISOR Legal Sex Female 2:43 PM NEWS PRODUCTION SUPERVISOR Gender Identity Female 12/26/2018 8:37 PM NEWS PRODUCTION SUPERVISOR Sexual Orientation Choose not to disclose 2020 3:46 PM CDT documented as of this encounter Plan of Treatment Upcoming Encounters Date Type Department Care Team (Latest Contact Info) Description 07/03/2025 8:00 AM CDT Telemedicine Department of Palliative Care in [place], [place] [address] [place] [address] Yary Landa D.O. [address] [place] [address] 07/15/2025 9:00 AM CDT Telemedicine [facility] in [place], [place] [address] [place] [address] Jessica Rousseau M.B.B.S. [address] [place] [phone] 08/11/2025 9:00 AM CDT Nurse Only Section of Infectious Diseases in [place], [place] [address] [place] [phone] Jessica Rousseau M.B.B.S. [address] [place] [phone] 08/11/2025 10:20 AM CDT Comprehensive Visit Division of Gastroenterology in [place], [place] [address] [place] [address] Jessica Rousseau M.B.B.S. [address] [place] [phone] 08/11/2025 1:00 PM CDT Clinical Support Department of Palliative Care in [place], [place] [address] [place] [phone] Uma Aly APRN, C.N.P., M.S.N. [address] [place] [phone] 08/13/2025 10:00 AM CDT Lab Department of Laboratory Medicine and Pathology, [facility], in [place], [place] [address] [place] [phone] Jessica Rousseau M.B.B.S. [address] [place] [phone] 08/13/2025 10:30 AM CDT [facility] in [place], [place] [address] [place] [address] Jessica Rousseau M.B.B.S. [address] [place] [phone] 08/13/2025 11:00 AM CDT Nurse Only [facility] Transplantation and Clinical Regeneration in [place], [place] [address] [place] [address] Jessica Rousseau M.B.B.S. [address] [place] [phone] 08/13/2025 11:30 AM CDT Office Visit [facility] Clinical [facility] in [place], [place] [address] [place] [address] Jessica Rousseau M.B.B.S. 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 [address] [place] [phone] PCP - General Family Medicine 04/25/23 documented as of this encounter
--- OUTSIDE RECORDS SUMMARY | 2025-07-02 02:30 | XMS_ITS | Encounter Summary ---
Author Organization [facility] Address [address] [place] [address] Care Team Providers Care Literacy Teacher Name Role Phone Renzo Andres M.D. Primary Care Provider Encounter Details Date Type Department Care Team (Late st Contact Info) Description 06/29/2025 Clinical Communication [facility], Ninth Floor [address] [place] [phone] Antonina Paul V., RKatalinaNKatalina Social History Tobacco [...] things needed for daily living? No 06/24/2025 [facility] Utilities Answer Date Recorded In the past 12 months has th e electric, gas, oil, or water company threatened to shut off services in your home? No 06/24/2025 Depression Answer Date Recor ded PHQ-9 Total Score (max 27) 2 12/10 Housing Stability Answer Date Recorded What is your living situation today? I have a [facility] place to live 06/24/2025 Education Answer Date Recorded What is the highest level of school you have completed or the highest degree you have received? Some college, no degree 04/24/2019 Comments No Sex and Gender Information Value Date Recorded Sex Assigned at Female 12/26/2018 8:37 PM SALON DESIGNER Legal Sex Female 2:43 PM SALON DESIGNER Gender Identity Female 12/26/2018 8:37 PM SALON DESIGNER Sexual Orientation Choose not to disclose 2020 [...] CDT Telemedicine Department of Palliative Care in [place], [place] [address] [place] [phone] Yary Landa D.O. [address] [place] [phone] 07/15/2025 9:00 AM CDT Telemedicine [facility] for Transplantation and Clinical Regeneration in [place], [place] [address] [place] [phone] Jessica Rousseau M.B.B.S. [address] [place] [phone] 08/11/2025 9:00 AM CDT Nurse Only Section of Infectious Diseases in [place], [place] [address] [place] [phone] Jessica Rousseau M.B.B.S. [address] [place] [phone] 08/11/2025 10:20 AM CDT Comprehensive Visit Division of Gastroenterology in [place], [place] [address] [place] [phone] Jessica Rousseau M.B.B.S. [address] [place] [phone] 08/11/2025 1:00 PM CDT Clinical Support Department of Palliative Care in [place], [place] [address] [place] [phone] Uma Aly APRN, C.N.P., M.S.N. [address] [place] [phone] 08/13/2025 10:00 AM CDT Lab Department of Laboratory Medicine and Pathology, [facility], in [place], [place] [address] [place] [address] Jessica Rousseau M.B.B.S. [address] [place] [phone] 08/13/2025 10:30 AM CDT Office Visit [facility] Transplantation and Clinical Regeneration in [place], [place] [address] [place] [address] Jessica Rousseau M.B.B.S. [address] [place] [phone] 08/13/2025 11:[address] AM CDT Nurse Only [facility] Transplantation and Clinical Regeneration in [place], [place] [address] [place] [address] Jessica Rousseau M.B.B.S. [address] [place] [phone] 08/13/2025 11:30 AM CDT Office Visit [facility] Transplantation and Clinical Regeneration in [place], [place] [address] [place] [phone] Jessica Rousseau M.B.B.S. [address] [place] [phone] documented as of this encounter Visit Diagnoses Not on filedocumented in this encounter Additional Health Concerns Infection Onset Date Last Indicated Resolved Time Protective Environment 03/02/2023 03/02/2023 Assessment Noted Time PHQ-9 Depression Total Score: 2 12/10/19 25 2:46 PM SALON DESIGNER documented as of this encounter Care Teams Literacy Teacher Relationship Specialty Start Date End Date Renzo Andres M.D. [address] [place] [phone] PCP - General Family Medicine 04/25/23 documented as of this encounter
--- OUTSIDE RECORDS SUMMARY | 2025-07-02 02:30 | XMS_ITS | Encounter Summary ---
Author Organization [facility] Address [address] [place] [address] Care Team Providers Care Senior Principal Process Engineer Name Role Phone Renzo Andres M.D. 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 [address] [place] [phone] Phone: tel: fax: [place] [facility] Referral ID Status Reason Start Date Expiration Date Visits Requested Visits Authorized [id number] Authorized Specialty Services Required 06/29/2025 12/29/2026 1 1 Scheduling Instructions GIH consult should be scheduled after all testing Encounter Details Date Type Department Care Team (Late st Contact Info) Description 06/29/2025 Orders Only [facility] in [place], [place] [address] [place] [phone] Tara Marin R.N., BMT-CN [address] [place] [phone] Transplant Bone Marrow Allogeneic (HCC) (Primary Dx); [...] needed for daily living? No 06/24/2025 [facility] Utilities Answer Date Recorded In the past 12 months has [facility] electric, gas, oil, or water company threatened to shut off services in your home? No 06/24/2025 Depression Answer Date Recor ded PHQ-9 Total Score (max 27) 2 12/10 Housing Stability Answer Date Recorded What is your living situation today? I have a [facility] place to live 06/24/2025 Education Answer Date Recorded What is the highest level of school you have completed or the highest degree you have received? Some college, no degree 04/24/2019 Comments No Sex and Gender Information Value Date Recorded Sex Assigned at Female 12/26/2018 8:37 PM REMOTE SENSING ENGINEER Legal Sex Female 2:43 PM REMOTE SENSING ENGINEER Gender Identity Female 12/26/2018 8:37 PM REMOTE SENSING ENGINEER Sexual Orientation Choose not to disclose 2020 3:46 PM CDT documented as of this encounter Plan of Treatment Upcoming Encounters Date Type Department Care Team (Latest Contact Info) Description 07/03/2025 8:00 AM CDT Telemedicine Department of Palliative Care in [place], [place] [address] [place] [phone] Yary Landa D.O. [address] [place] [phone] 07/15/2025 9:00 AM CDT Telemedicine [facility] for Transplantation and Clinical Regeneration in [place], [place] [address] [place] [phone] Jessica Rousseau M.B.B.S. [address] [place] [phone] 08/11/2025 9:00 AM CDT Nurse Only Section of Infectious Diseases in [address] [phone] Jessica Rosuseau M.B.B.S. [address] [place] [phone] 08/11/2025 10:20 AM CDT Comprehensive Visit Division of Gastroenterology in [place], [place] [address] [place] [phone] Jessica Rousseau M.B.B.S. [address] [place] [phone] 08/11/2025 1:00 PM CDT Clinical Support Department of Palliative Care in [place], [place] [address] [place] [phone] Uma Aly APRN, CKatalinaN.P., M.S.N. [address] [place] [phone] 08/13/2025 10:00 AM CDT Lab Department of Laboratory Medicine and Pathology, [facility], in [place], [place] [address] [place] [address] Jessica Rousseau M.B.B.S. [address] [place] [phone] 08/13/2025 10:30 AM CDT Office Visit [facility] for Transplantation and Clinical Regeneration in [place], [place] [address] [place] [phone] Jessica Rousseau M.B.B.S. [address] [place] [phone] 08/13/2025 11:00 AM CDT Nurse Only [facility] Transplantation and Clinical Regeneration in [place], [place] [address] [place] [address] Jessica Rousseau M.B.B.S. [address] [place] [phone] 08/13/2025 11:30 AM CDT Office Visit [facility] for Transplantation and Clinical Regeneration in [place], [place] [address] [place] [address] Jessica Rousseau M.B.B.S. [address] [place] [phone] Scheduled Referrals Name Type Priority Associated Diagnoses [...] Total Score: 2 12/10/19 25 2:46 PM REMOTE SENSING ENGINEER documented as of this encounter Care Teams Senior Principal Process Engineer Relationship Specialty Start Date End Date Renzo Andres M.D. [address] [place] [phone] PCP - General Family Medicine 04/25/23 documented as of this encounter
--- OUTSIDE RECORDS SUMMARY | 2025-07-02 02:30 | XMS_ITS | Encounter Summary ---
Author Organization [facility] Address [address] [place] [address] Care Team Providers Care Software Integrator Name Role Phone Renzo Andres M.D. Primary Care Provider Reason for Visit * Reason Onset Date Comments Flexible Sigmoidoscopy 06/29/2025 Abdominal Pain 06/29/2025 Encounter Details Date Type Department Care Team (Latest Contact Info) Description 06/29/2025 Clinical Communication Division of Hematology in [place], [place] [address] [place] [phone] Jessica Rousseau M.B.B.S. [address] [place] [phone] Flexible Sigmoidoscopy; Abdominal Pain Social History Tobacco [...] for daily living? No 06/24/2025 [facility] Utilities Answer Date Recorded In the past 12 months has [employer], gas, oil, or water [employer] threatened to shut off services in your [...] Sex Assigned at Female 12/26/2018 8:37 PM ESTATE ATTORNEY Legal Sex Female 2:43 PM ESTATE ATTORNEY Gender Identity Female 12/26/2018 8:37 PM ESTATE ATTORNEY Sexual Orientation Choose not to disclose [...] CDT Telemedicine Department of Palliative Care in [place], [place] [address] [place] [phone] Yary Landa D.O. [address] [place] [phone] 07/15/2025 9:00 AM CDT Telemedicine [facility] for Transplantation and Clinical Regeneration in [place], [place] [address] [place] [phone] Jessica Rousseau M.B.B.S. [address] [place] [phone] 08/11/2025 9:00 AM CDT Nurse Only Section of Infectious Diseases in [place], [place] [address] [place] [phone] Jessica Rousseau M.B.B.S. [address] [place] [phone] 08/11/2025 10:20 AM CDT Comprehensive Visit Division of Gastroenterology in [place], [place] [address] [place] [phone] Jessica Rousseau M.B.B.S. [address] [place] [phone] 08/11/2025 1:00 PM CDT Clinical Support Department of Palliative Care in [place], [place] [address] [place] [address] Uma Aly APRN, C.N.P., M.S.N. [address] [place] [phone] 08/13/2025 10:00 AM CDT Lab Department of Laboratory Medicine and Pathology, [facility], in [place], [place] [address] [place] [phone] eJssica Rousseau M.B.B.S. [address] [place] [phone] 08/13/2025 10:30 AM CDT [facility] in [place], [place] [address] [place] [address] Jessica Rousseau M.B.B.S. [address] [place] [phone] 08/13/2025 11:00 AM CDT Nurse Only [facility] for Trans[facility] and Clinical Regeneration in [place], [place] [address] [place] [address] Jessica Rousseau M.B.B.S. [address] [place] [address] 08/13/2025 11:30 AM CDT Office Visit Pedro Nazario [facility] Transplantation and Clinical Regeneration in [place], [place] [address] [place] [address] Jessica Rousseau M.B.B.S. 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 [address] [place] [phone] PCP - General Family Medicine 04/25/23 documented as of this encounter
--- OUTSIDE RECORDS SUMMARY | 2025-07-02 02:30 | XMS_ITS | Encounter Summary ---
Author Organization [facility] Address [address] [place] [address] Care Team Providers Care Track Laying Equipment Operator Name Role Phone Renzo Andres M.D. Primary Care Provider [phone] Reason for Referral * MRI/CAT/PET Scan (Routine) - Closed Specialty Diagnoses / Procedures Referred By Contheidy t Referred To Contact Radiology Diagnoses Transplant Stem Cell (HCC) Transplant Bone Marrow Allogeneic (HCC) Procedures CT Abdomen Pelvis Enterography with IV Contrast CT Abdomen Pelvis Angiogram Enterography with IV Contrast Carlee Armas APRN, C.N.P., D.N.P., M.S.N. [address] [place] [phone] Phone: tel: fax: [facility] Referral ID Status Reason Start Date Expiration Date Visits Re quested Visits Authorized [id number] Closed 06/27/2025 09/27/2026 1 1 CDT Encounter Details Date Type Department Care Team (Late st Contact Info) Description 06/27/2025 Orders Only [facility], [facility], Ninth Floor [address] [place] [address] Carlee Armas APRN, C.N.P., D.N.P., M.S.N. [address] [place] [address] Abdominal Pain (Primary Dx); Transplant Stem Cell [...] for daily living? No 06/24/2025 [facility] Utilities Answer Date Recorded In the past 12 months has e electric, gas, oil, or water company threatened to shut off services in your home? No 06/24/2025 Depression Answer Date Recor ded PHQ-9 Total Score (max 27) 2 12/10 Housing Stability Answer Date Recorded What is your living situation today? I have a [facility] place to live 06/24/2025 Education Answer Date Recorded What is the highest level of school you have completed or the highest degree you have received? Some college, no degree 04/24/2019 Comments No Sex and Gender Information Value Date Recorded Sex Assigned at Female 12/26/2018 8:37 PM DIGITAL CIRCUIT DESIGNER Legal Sex Female 2:43 PM DIGITAL CIRCUIT DESIGNER Gender Identity Female 12/26/2018 8:37 PM DIGITAL CIRCUIT DESIGNER Sexual Orientation Choose not to disclose 2020 3:46 PM CDT documented as of this encounter Plan of Treatment Upcoming Encounters Date Type Department Care Team (Latest Contact Info) Description 07/03/2025 8:00 AM CDT Telemedicine Department of Palliative Care in [place], [place] [address] [place] [phone] Yary Landa D.O. [address] [place] [phone] 07/15/2025 9:00 AM CDT Telemedicine Pedro sanchez [facility] for Transplantation and Clinical Regeneration in [place], [place] [address] [place] [phone] Jessica Rousseau M.B.B.S. [address] [place] [phone] 08/11/2025 9:00 AM CDT Nurse Only Section of Infectious Diseases in [place], [place] [address] [place] [phone] Jessica Rousseau M.B.B.S. [address] [place] [phone] 08/11/2025 10:20 AM CDT Comprehensive Visit Division of Gastroenterology in [place], [place] [address] [place] [phone] Jessica Rousseau M.B.B.S. [address] [place] [phone] 08/11/2025 1:00 PM CDT Clinical Support Department of Palliative Care in [place], [place] [address] [place] [address] Uma Aly APRN, C.N.P., M.S.N. [address] [place] [phone] 08/13/2025 10:00 AM CDT Lab Department of Laboratory Medicine and Pathology, [facility], in [place], [place] [address] [place] [address] Jessica Rousseau M.B.B.S. [address] [place] [phone] 08/13/2025 10:30 AM CDT [facility] in [place], [place] [address] [place] [address] Jessica Rousseau M.B.B.S. [address] [place] [phone] 08/13/2025 11:00 AM CDT Nurse Only [facility] in [place], [place] [address] [place] [address] Jessica Rousseau M.B.B.S. [address] [place] [phone] 08/13/2025 11:30 AM CDT [facility] in [place], [place] [address] [place] [address] Jessica Rousseau M.B.B.S. [address] [place] [phone] documented as of this encounter Results * CT Abdomen Pelvis [...] without recurrence of the marked splenomegaly seen [id number]. 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 Carlee Armas APRN, C.N.P., D.N.P., M.S. N. IMG CT PROCEDURES Final Result documented in this encounter Visit Diagnoses Diagnosis Abdominal Pain- Primary Transplant Stem Cell (HCC) Transplant Bone Marrow Allogeneic (HCC) Transplant Stem Cell (HCC) Transplant Bone Marrow Allogeneic (HCC) documented in this encounter Additional Health Concerns Infection Onset Date Last Indicated Resolved Time Protective Environment 03/02/2023 03/02/2023 Assessment Noted Time PHQ-9 Depression Total Score: 2 12/10/19 25 2:46 PM DIGITAL CIRCUIT DESIGNER documented as of this encounter Care Teams Track Laying Equipment Operator Relationship Specialty Start Date End Date Renzo Andres M.D. [address] [place] [phone] PCP - General Family Medicine 04/25/23 documented as of this encounter
--- OUTSIDE RECORDS SUMMARY | 2025-07-02 02:31 | XMS_ITS | Encounter Summary ---
Author Organization [facility] Address [address] [place] [address] Care Team Providers Care Shop Worker Name Role Phone Renzo Andres M.D. Primary Care Provider Encounter Details Date Type Department Care Team (Latest Contact Info) Description 06/22/2025 Results Follow-Up [facility] for Transplantation and Clinical Regeneration in [place], [place] [address] [place] [phone] Jessica Rousseau M.B.B.S. [address] [place] [phone] BCR/ABL1, p210, mRNA Detection, Reverse Transfer Worker-PCR (RT-PCR), Quantitative, Monitoring Chronic Myeloid Leukemia [...] things needed for daily living? No 06/24/2025 [facility] Utilities Answer Date Recorded In the past 12 months has th e electric, gas, oil, or water company threatened to shut off services in your home? No 06/24/2025 Depression Answer Date Recor ded PHQ-9 Total Score (max 27) 2 12/10 Housing Stability Answer Date Recorded What is your living situation today? I have a [facility] place to live 06/24/2025 Education Answer Date Recorded What is the highest level of school you have completed or the highest degree you have received? Some college, no degree 04/24/2019 Comments No Sex and Gender Information Value Date Recorded Sex Assigned at Female 12/26/2018 8:37 PM VOLUNTEER SERVICES MANAGER Legal Sex Female 2:43 PM VOLUNTEER SERVICES MANAGER Gender Identity Female 12/26/2018 8:37 PM VOLUNTEER SERVICES MANAGER Sexual Orientation Choose not to disclose 2020 3:46 PM CDT documented as of this encounter Plan of Treatment Upcoming Encounters Date Type Department Care Team (Latest Contact Info) Description 07/03/2025 8:00 AM CDT Telemedicine Department of Palliative Care in [place], [place] 200 [place] [address] Yary Landa D.O. 200 [place] [address] 07/15/2025 9:00 AM CDT Telemedicine [facility] for Transplantation and Clinical Regeneration in [place], [place] [address] [place] [phone] Jessica Rousseau M.B.B.S. [address] [place] [phone] 08/11/2025 9:00 AM CDT Nurse Only Section of Infectious Diseases in [place], [place] [address] [place] [phone] Jessica Rousseau M.B.B.S. [address] [place] [phone] 08/11/2025 10:20 AM CDT Comprehensive Visit Division of Gastroenterology in [place], [place] [address] [place] [phone] Jessica Rousseau M.B.B.S. [address] [place] [phone] 08/11/2025 1:00 PM CDT Clinical Support Department of Palliative Care in [place], [place] [address] [place] [phone] Uma Aly APRN, C.N.P., M.S.N. [address] [place] [phone] 08/13/2025 10:00 AM CDT Lab Department of Laboratory Medicine and Pathology, [facility], in [place], [place] [address] [place] [phone] Jessica Rousseau M.B.B.S. [address] [place] [phone] 08/13/2025 10:30 AM CDT [facility] in [place], [place] [address] [place] [phone] Jessica Rousseau M.B.B.S. [address] [place] [phone] 08/13/2025 11:00 AM CDT Nurse Only [facility] Transplantation and Clinical Regeneration in [place], [place] [address] [place] [address] Jessica Rousseau M.B.B.S. [address] [place] [phone] 08/13/2025 11:30 AM CDT Office Visit [facility] in [place], [place] [address] [place] [address] Jessica Rousseau M.B.B.S. [address] [place] [phone] documented as of this encounter Visit Diagnoses Not on filedocumented in this encounter Additional Health Concerns Infection Onset Date Last Indicated Resolved Time Protective Environment 03/02/2023 03/02/2023 Assessment Noted Time PHQ-9 Depression Total Score: 2 12/10/19 25 2:46 PM VOLUNTEER SERVICES MANAGER documented as of this encounter Care Teams Shop Worker Relationship Specialty Start Date End Date Renzo Andres M.D. [address] [place] [phone] PCP - General Family Medicine 04/25/23 documented as of this encounter
--- OUTSIDE RECORDS SUMMARY | 2025-07-02 02:31 | XMS_ITS | Encounter Summary ---
Author Organization [facility] Address [address] [place] [address] Care Team Providers Care Machine Heel Sprayer Name Role Phone Renzo Andres M.D. Primary Care Provider Reason for Visit * Reason Onset Date Comments Phone Contact 06/22/2025 Nausea and abdom inal pain Encounter Details Date Type Department Care Team (Latest Contact Info) Description 06/22/2025 Clinical Communication [facility] in [place], [place] [address] [place] [address] Jessica Rousseau M.B.B.S. [address] [place] [phone] Phone Contact (Nausea and abdominal pain) Social [...] things needed for daily living? No 06/24/2025 [facility] Utilities Answer Date Recorded In the past 12 months has th e electric, gas, oil, or water [employer] threatened to shut off services in your home? No 06/24/2025 Depression Answer Date Recor ded PHQ-9 Total Score (max 27) 2 12/10 Housing Stability Answer Date Recorded What is your living situation today? I have a [facility] place to live 06/24/2025 Education Answer Date Recorded What is the highest level of school you have completed or the highest degree you have received? Some college, no degree 04/24/2019 Comments No Sex and Gender Information Value Date Recorded Sex Assigned at Female 12/26/2018 8:37 PM SUPERVISOR TILE AND MOTTLE Legal Sex Female 2:43 PM SUPERVISOR TILE AND MOTTLE Gender Identity Female 12/26/2018 8:37 PM SUPERVISOR TILE AND MOTTLE Sexual Orientation Choose not to disclose 2020 [...] CDT Telemedicine Department of Palliative Care in [place], [place] [address] [place] [phone] Yary Landa D.O. [address] [place] [phone] 07/15/2025 9:00 AM CDT Telemedicine [facility] for Transplantation and Clinical Regeneration in [place], [place] [address] [place] [phone] Jessica Rousseau M.B.B.S. [address] [place] [phone] 08/11/2025 9:00 AM CDT Nurse Only Section of Infectious Diseases in [place], [place] [address] [place] [phone] Jessica Rousseau M.B.B.S. [address] [place] [phone] 08/11/2025 10:20 AM CDT Comprehensive Visit Division of Gastroenterology in [address] [phone] Jessica Rousseau M.B.B.S. [address] [place] [phone] 08/11/2025 1:00 PM CDT Clinical Support Department of Palliative Care in [place], [place] [address] [place] [phone] Uma Aly APRN, C.N.P., M.S.N. [address] [place] [phone] 08/13/2025 10:00 AM CDT Lab Department of Laboratory Medicine and Pathology, [facility], in [place], [place] [address] [place] [address] Jessica Rousseau M.B.B.S. [address] [place] [phone] 08/13/2025 10:30 AM CDT Office Visit [facility] Transplantation and Clinical Regeneration in [place], [place] [address] [place] [address] Jessica Rousseau M.B.B.S. [address] [place] [phone] 08/13/2025 11:00 AM CDT Nurse Only [facility] Transplantation and Clinical Regeneration in [place], [place] [address] [place] [address] Jessica Rousseau M.B.B.S. [address] [place] [phone] 08/13/2025 11:30 AM CDT Office Visit [facility] Transplantation and Clinical Regeneration in [place], [place] [address] [place] [phone] Jessica Rousseau M.B.B.S. [address] [place] [phone] documented as of this encounter Visit Diagnoses Not on filedocumented in this encounter Additional Health Concerns Infection Onset Date Last Indicated Resolved Time Protective Environment 03/02/2023 03/02/2023 Assessment Noted Time PHQ-9 Depression Total Score: 2 12/10/19 25 2:46 PM SUPERVISOR TILE AND MOTTLE documented as of this encounter Care Teams Machine Heel Sprayer Relationship Specialty Start Date End Date Renzo Andres M.D. [address] [phone] PCP - General Family Medicine 04/25/23 documented as of this encounter
--- OUTSIDE RECORDS SUMMARY | 2025-07-02 02:31 | XMS_ITS | Encounter Summary ---
Author Organization [facility] Address [address] [place] [address] Care Team Providers Care Vp Of Marketing Name Role Phone Renzo Andres M.D. Primary Care Provider Reason for Referral * Specialty Diagnoses / Procedures Referred By Estefania acosta Referred To Contact Diagnoses Transplant Stem Cell (HCC) [facility]ST [facility] [address] [place] [address] Phone: tel: [facility] Referral ID Status Reason Start Date Expiration Date Visits Re quested Visits Authorized Encounter Details Date Type Department Care Team (Late st Contact Info) Description 06/22/2025 Orders Only [facility], [facility], Ninth Floor [address] [place] [phone] Vikki Duarte, RKatalinaNKatalina [address] [place] [address] Transplant Stem Cell (HCC) (Primary [...] for daily living? No 06/24/[address] [facility] Utilities Answer Date Recorded In the past 12 months has [facility] electric, gas, oil, or water company threatened to shut off services in your home? No 06/24/2025 Depression Answer Date Recor ded PHQ-9 Total Score (max 27) 2 12/10 Housing Stability Answer Date Recorded What is your living situation today? I have a [facility] place to live 06/24/2025 Education Answer Date Recorded What is the highest level of school you have completed or the highest degree you have received? Some college, no degree 04/24/2019 Comments No Sex and Gender Information Value Date Recorded Sex Assigned at Female 12/26/2018 8:37 PM RETAIL PARTS PRO Legal Sex Female 2:43 PM RETAIL PARTS PRO Gender Identity Female 12/26/2018 8:37 PM RETAIL PARTS PRO Sexual Orientation Choose not to disclose 2020 3:46 PM CDT documented as of this encounter Plan of Treatment Upcoming Encounters Date Type Department Care Team (Latest Contact Info) Description 07/03/2025 8:00 AM CDT Telemedicine Department of Palliative Care in [place], [place] [address] [place] [phone] Yary Landa D.O. [address] [place] [phone] 07/15/2025 9:00 AM CDT Telemedicine [facility] in [place], [place] [address] [place] [phone] Jessica Rousseau M.B.B.S. [address] [place] [phone] 08/11/2025 9:00 AM CDT Nurse Only Section of Infectious Diseases in [address] [phone] Jessica Rousseau M.B.B.S. [address] [place] [phone] 08/11/2025 10:20 AM CDT Comprehensive Visit Division of Gastroenterology in [address] [phone] Jessica Rousseau M.B.B.S. [address] [place] [phone] 08/11/2025 1:00 PM CDT Clinical Support Department of Palliative Care in [place], [place] [address] [place] [phone] Uma Aly APRN, C.N.P., M.S.N. [address] [place] [phone] 08/13/2025 10:00 AM CDT Lab Department of Laboratory Medicine and Pathology, [facility], in [place], [place] [address] [place] [address] Jessica Rousseau M.B.B.S. [address] [place] [phone] 08/13/2025 10:30 AM CDT Office Visit [facility] Transplantation and Clinical Regeneration in [place], [place] [address] [place] [phone] Jessica Rousseau M.B.B.S. [address] [place] [phone] 08/13/2025 11:00 AM CDT Nurse Only [facility] Transplantation and Clinical Regeneration in [place], [place] [address] [place] [phone] Jessica Rousseau M.B.B.S. [address] [place] [phone] 08/13/2025 11:30 AM CDT Office Visit [facility] Transplantation and Clinical Regeneration in [place], [place] [address] [place] [address] Jessica Rousseau M.B.B.S. [address] [place] [phone] Scheduled Referrals Name Type Priority Associated Diagnoses [...] Total Score: 2 12/10/19 25 2:46 PM RETAIL PARTS PRO documented as of this encounter Care Teams Vp Of Marketing Relationship Specialty Start Date End Date Renzo Andres M.D. [address] [place] [address] [place] [phone] PCP - General Family Medicine 04/25/23 documented as of this encounter
--- OUTSIDE RECORDS SUMMARY | 2025-07-02 02:31 | XMS_ITS | Encounter Summary ---
Author Organization [facility] Address [address] [place] [address] Care Team Providers Care Bottle Line Worker Name Role Phone Renzo Andres M.D. Primary Care Provider Encounter Details Date Type Department Care Team (Latest Contact Info) Description 06/23/2025 Clinical Communication Pedro Naz[facility] for Transplantation and Clinical Regeneration in [place], [place] [address] [place] [phone] Jessica Rousseau M.B.B.S. [address] [place] [address] Social History Tobacco Use Types Packs/Day Years [...] things needed for daily living? No 06/24/2025 [facility] Utilities Answer Date Recorded In the past 12 months has th e electric, gas, oil, or water company threatened to shut off services in your home? No 06/24/2025 Depression Answer Date Recor ded PHQ-9 Total Score (max 27) 2 12/10 Housing Stability Answer Date Recorded What is your living situation today? I have a [facility] place to live 06/24/2025 Education Answer Date Recorded What is the highest level of school you have completed or the highest degree you have received? Some college, no degree 04/24/2019 Comments No Sex and Gender Information Value Date Recorded Sex Assigned at Female 12/26/2018 8:37 PM OUTPATIENT SURGERY RN Legal Sex Female 2:43 PM OUTPATIENT SURGERY RN Gender Identity Female 12/26/2018 8:37 PM OUTPATIENT SURGERY RN Sexual Orientation Choose not to disclose 2020 3:46 PM CDT documented as of this encounter Plan of Treatment Upcoming Encounters Date Type Department Care Team (Latest Contact Info) Description 07/03/2025 8:00 AM CDT Telemedicine Department of Palliative Care in [place], [place] 200 [place] [address] Yary Landa D.O. 200 [place] [address] 07/15/2025 9:00 AM CDT [facility]medicine [facility] in [place], [place] [address] [place] [address] Jessica Rousseau M.B.B.S. [address] [place] [phone] 08/11/2025 9:00 AM CDT Nurse Only Section of Infectious Diseases in [place], [place] [address] [place] [phone] Jessica Rousseau M.B.B.S. [address] [place] [phone] 08/11/2025 10:20 AM CDT Comprehensive Visit Division of Gastroenterology in [place], [place] [address] [place] [phone] Jessica Rousseau M.B.B.S. [address] [place] [phone] 08/11/2025 1:00 PM CDT Clinical Support Department of Palliative Care in [place], [place] [address] [place] [address] Uma Aly APRN, C.N.P., M.S.N. [address] [place] [phone] 08/13/2025 10:00 AM CDT Lab Department of Laboratory Medicine and Pathology, [facility], in [place], [place] [address] [place] [address] Jessica Rousseau M.B.B.S. [address] [place] [phone] 08/13/2025 10:30 AM CDT [facility] in [place], [place] [address] [place] [address] Jessica Rousseau M.B.B.S. [address] [place] [phone] 08/13/2025 11:00 AM CDT Nurse Only [facility] Transplantation and Clinical Regeneration in [place], [place] [address] [place] [address] Jessica Rousseau M.B.B.S. [address] [place] [phone] 08/13/2025 11:30 AM CDT Office Visit [facility] Transplantation and Clinical Regeneration in [place], [place] [address] [place] [address] Jessica Rousseau M.B.B.S. [address] [place] [phone] documented as of this encounter Visit Diagnoses Not on filedocumented in this encounter Additional Health Concerns Infection Onset Date Last Indicated Resolved Time Protective Environment 03/02/2023 03/02/2023 Assessment Noted Time PHQ-9 Depression Total Score: 2 12/10/19 25 2:46 PM OUTPATIENT SURGERY RN documented as of this encounter Care Teams Bottle Line Worker Relationship Specialty Start Date End Date Renzo Andres M.D. [address] [place] [phone] PCP - General Family Medicine 04/25/23 documented as of this encounter
--- OUTSIDE RECORDS SUMMARY | 2025-07-02 02:31 | XMS_ITS | Encounter Summary ---
Author Organization [facility] Address [address] [place] [address] Care Team Providers Care Energy Efficient Site Manager Name Role Phone Renzo Andres M.D. Primary Care Provider Reason for Referral * Outpatient (Routine) - Authorized Specialty Diagnoses / Procedures Referred By Contheidy t Referred To Contact Renzo Andres M.D. [address] [place] [address] Phone: tel: fax: [facility] Region Referral ID Status Reason Start Date Expiration Date V isits Requested Visits Authorized [id number] Authorized 06/23/2025 12/23/2026 1 1 Scheduling Instructions Nurse AWV Do not schedule prior to due date to ensure insurance coverage Visit: Medicare Annual Wellness Never done. Encounter Details Date Type Department Care Team (Late st Contact Info) Description 06/23/2025 Orders Only [facility] PCP TH MNT Renzo Andres M.D. [address] [place] [address] Social History Tobacco Use Types [...] daily living? No 06/24/[address] [facility] Utilities Answer Date Recorded In the past 12 months has e [employer], gas, oil, or water [employer] threatened to shut off services in your home? No 06/24/2025 Depression Answer Date Recor ded PHQ-9 Total Score (max 27) 2 12/10 Housing Stability Answer Date Recorded What is your living situation today? I have a [facility] place to live 06/24/2025 Education Answer Date Recorded What is the highest level of school you have completed or the highest degree you have received? Some college, no degree 04/24/2019 Comments No Sex and Gender Information Value Date Recorded Sex Assigned at Female 12/26/2018 8:37 PM PERFORATOR OPERATOR OIL WELL Legal Sex Female 2:43 PM PERFORATOR OPERATOR OIL WELL Gender Identity Female 12/26/2018 8:37 PM PERFORATOR OPERATOR OIL WELL Sexual Orientation Choose not to disclose 2020 3:46 PM CDT documented as of this encounter Plan of Treatment Upcoming Encounters Date Type Department Care Team (Latest Contact Info) Description 07/03/2025 8:00 AM CDT Telemedicine Department of Palliative Care in [place], [place] [address] [place] [phone] Yary Landa D.O. [address] [place] [phone] 07/15/2025 9:00 AM CDT Telemedicine [facility] for Transplantation and Clinical Regeneration in [place], [place] [address] [place] [phone] Jessica Rousseau M.B.B.S. [address] [place] [phone] 08/11/2025 9:00 AM CDT Nurse Only Section of Infectious Diseases in [address] [phone] Jessica Rousseau M.B.B.S. [address] [place] [phone] 08/11/2025 10:20 AM CDT Comprehensive Visit Division of Gastroenterology in [place], [place] [address] [place] [phone] Jessica Rousseau M.B.B.S. [address] [place] [phone] 08/11/2025 1:00 PM CDT Clinical Support Department of Palliative Care in [place], [place] [address] [place] [phone] Uma Aly APRN, C.N.P., M.S.N. [address] [place] [phone] 08/13/2025 10:00 AM CDT Lab Department of Laboratory Medicine and Pathology, [facility], in [place], [place] [address] [place] [address] Jessica Rousseau M.B.B.S. [address] [place] [phone] 08/13/2025 10:30 AM CDT Office [facility] in [place], [place] [address] [place] [address] Jessica Rousseau M.B.B.S. [address] [place] [phone] 08/13/2025 11:00 AM CDT Nurse Only [facility] Transplantation and Clinical Regeneration in [place], [place] [address] [place] [address] Jessica Rousseau M.B.B.S. [address] [place] [phone] 08/13/2025 11:30 AM CDT Office Visit [facility] Transplantation and Clinical Regeneration in [place], [place] [address] [place] [address] Jessica Rousseau M.B.B.S. [address] [place] [phone] Scheduled Referrals Name Type Priority Associated Diagnoses Orde r Schedule Primary Care nurse visit (clinic) - [facility] Region; Medicare Annual Wellness Outpatient Referral Routine Expected: 07/21/2025, Expires: 12/10/2025 documented as of this encounter Visit Diagnoses Not on filedocumented in this encounter Additional Health Concerns Infection Onset Date Last Indicated Resolved Time Protective Environment 03/02/2023 03/02/2023 Assessment Noted Time PHQ-9 Depression Total Score: 2 12/10/19 25 2:46 PM PERFORATOR OPERATOR OIL WELL documented as of this encounter Care Teams Energy Efficient Site Manager Relationship Specialty Start Date End Date Renzo Andres M.D. [address] [place] [address] [place] [phone] PCP - General Family Medicine 04/25/23 documented as of this encounter
--- OUTSIDE RECORDS SUMMARY | 2025-07-02 02:31 | XMS_ITS | Encounter Summary ---
Author Organization [facility] Address [address] [place] [address] Care Team Providers Care Film Examiner Name Role Phone Renzo Andres M.D. Primary Care Provider Reason for Visit * Reason Onset Date Comments Phone Contact 06/18/2025 Encounter Details Date Type Department Care Team (Latest Contact Info) Description 06/18/2025 Clinical Communication [facility] in [place], [place] [address] [place] [address] Osiris Bass R.N., BMT-CN [address] [place] [address] Phone Contact Social History Tobacco Use Types [...] things needed for daily living? No 06/12/2025 [facility] Utilities Answer Date Recorded In the past 12 months has th e [employer], gas, oil, or water company threatened to shut off services in your home? No 06/12/2025 Depression Answer Date Recor ded PHQ-9 Total Score (max 27) 2 12/10 Housing Stability Answer Date Recorded What is your living situation today? I have a [facility] place to live 06/12/2025 Education Answer Date Recorded What is the highest level of school you have completed or the highest degree you have received? Some college, no degree 04/24/2019 Comments No Sex and Gender Information Value Date Recorded Sex Assigned at Female 12/26/2018 8:37 PM SWITCH MAKER Legal Sex Female 2:43 PM SWITCH MAKER Gender Identity Female 12/26/2018 8:37 PM SWITCH MAKER Sexual Orientation Choose not to disclose 2020 3:46 PM CDT documented as of this encounter Plan of Treatment Upcoming Encounters Date Type Department Care Team (Latest Contact Info) Description 07/03/2025 8:00 AM CDT Telemedicine Department of Palliative Care in [place], [place] [address] [place] [address] Yary Landa D.O. 200 [place] [address] 07/15/2025 9:00 AM CDT [facility]medicine [facility] in [place], [place] [address] [place] [phone] Jessica Rousseau M.B.B.S. [address] [place] [phone] 08/11/2025 9:00 AM CDT Nurse Only Section of Infectious Diseases in [place], [place] [address] [place] [phone] Jessica Rousseau M.B.B.S. [address] [place] [phone] 08/11/2025 10:20 AM CDT Comprehensive Visit Division of Gastroenterology in [place], [place] [address] [place] [phone] Jessica Rousseau M.B.B.S. [address] [place] [phone] 08/11/2025 1:00 PM CDT Clinical Support Department of Palliative Care in [place], [place] [address] [place] [phone] Uma Aly APRN, C.N.P., M.S.N. [address] [place] [phone] 08/13/2025 10:00 AM CDT Lab Department of Laboratory Medicine and Pathology, [facility], in [place], [place] [address] [place] [phone] Jessica Rousseau M.B.B.S. [address] [place] [phone] 08/13/2025 10:30 AM CDT Office Visit Pedro sanchez [facility] for Transplantation and Clinical Regeneration in [place], [place] [address] [place] [address] Jessica Rousseau M.B.B.S. [address] [place] [phone] 08/13/2025 11:00 AM CDT [facility] Only [facility] in [place], [place] [address] [place] [address] Jessica Rousseau M.B.B.S. [address] [place] [phone] 08/13/2025 11:30 AM CDT [facility] in [place], [place] [address] [place] [address] Jessica Rousseau M.B.B.S. [address] [place] [phone] documented as of this encounter Visit Diagnoses Not on filedocumented in this encounter Additional Health Concerns Infection Onset Date Last Indicated Resolved Time Protective Environment 03/02/2023 03/02/2023 Assessment Noted Time PHQ-9 Depression Total Score: 2 12/10/19 25 2:46 PM SWITCH MAKER documented as of this encounter Care Teams Film Examiner Relationship Specialty Start Date End Date Renzo Andres M.D. [address] [place] [phone] PCP - General Family Medicine 04/25/23 documented as of this encounter
--- OUTSIDE RECORDS SUMMARY | 2025-07-02 02:31 | XMS_ITS | Encounter Summary ---
Author Organization [facility] Address [address] [place] [address] Care Team Providers Care Supervisor Furnace Room Name Role Phone Renzo Andres M.D. Primary Care Provider [phone] Reason for Visit * Reason Onset Date Comments Vomiting 06/24/2025 vomiting and abdominal pain 06/24/2025 Encounter Details Date Type Department Care Team (Latest Contact Info) Description 06/24/2025 Clinical Communication Pedro Fatima [place] [facility] Trans[facility] and Clinical Regeneration in [place], [place] [address] [place] [address] Jessica Rousseau M.B.B.S. [address] [place] [phone] Vomiting; vomiting and abdominal pain Social History [...] for daily living? No 06/24/2025 [facility] Utilities Answer Date Recorded In the past 12 months has th e electric, gas, oil, or water company threatened to shut off services in your home? No 06/24/2025 Depression Answer Date Recor ded PHQ-9 Total Score (max 27) 2 12/10 Housing Stability Answer Date Recorded What is your living situation today? I have a [facility] place to live 06/24/2025 Education Answer Date Recorded What is the highest level of school you have completed or the highest degree you have received? Some college, no degree 04/24/2019 Comments No Sex and Gender Information Value Date Recorded Sex Assigned at Female 12/26/2018 8:37 PM COMPUTER NUMERIC CONTROL SETTER Legal Sex Female 2:43 PM COMPUTER NUMERIC CONTROL SETTER Gender Identity Female 12/26/2018 8:37 PM COMPUTER NUMERIC CONTROL SETTER Sexual Orientation Choose not to disclose [...] * Telephone Encounter - Monica Napier R.N., [facility] - 06/24/2025 10:41 AM CDT SUBJECTIVE CHIEF [...] * Telephone Encounter - Monica Napier R.N., [facility] - 06/24/2025 9:18 AM CDT SUBJECTIVE CHIEF [...] CDT Telemedicine Department of Palliative Care in [place], [place] [address] [place] [phone] Yary Landa D.O. [address] [place] [phone] 07/15/2025 9:00 AM CDT Telemedicine [facility] Aravind [facility] for Transplantation and Clinical Regeneration in [place], [place] [address] [place] [phone] Jessica Rousseau M.B.B.S. [address] [place] [phone] 08/11/2025 9:00 AM CDT Nurse Only Section of Infectious Diseases in [address] [address] Jessica Rousseau M.B.B.S. [address] [place] [phone] 08/11/2025 10:20 AM CDT Comprehensive Visit Division of Gastroenterology in [address] [phone] Jessica Rousseau M.B.B.S. [address] [place] [phone] 08/11/2025 1:00 PM CDT Clinical Support Department of Palliative Care in [place], [place] [address] [place] [phone] Uma Aly APRN, C.N.P., M.S.N. [address] [place] [phone] 08/13/2025 10:00 AM CDT Lab Department of Laboratory Medicine and Pathology, [facility], in [place], [place] [address] [place] [address] Jessica Rousseau M.B.B.S. [address] [place] [phone] 08/13/2025 10:30 AM CDT [facility] in [place], [place] [address] [place] [phone] Jessica Rousseau M.B.B.S. [address] [place] [phone] 08/13/2025 11:00 AM CDT Nurse Only [facility] Transplantation and Clinical Regeneration in [place], [place] [address] [place] [address] Jessica Rousseau M.B.B.S. [address] [place] [phone] 08/13/2025 11:30 AM CDT [facility] in [place], [place] [address] [place] [address] Jessica Rousseau M.B.B.S. [address] [place] [phone] documented as of this encounter Visit Diagnoses Not on filedocumented in this encounter Additional Health Concerns Infection Onset Date Last Indicated Resolved Time Protective Environment 03/02/2023 03/02/2023 Assessment Noted Time PHQ-9 Depression Total Score: 2 12/10/19 25 2:46 PM COMPUTER NUMERIC CONTROL SETTER documented as of this encounter Care Teams Supervisor Furnace Room Relationship Specialty Start Date End Date Renzo Andres M.D. [address] [place] [address] [place] [phone] PCP - General Family Medicine 04/25/23 documented as of this encounter
--- OUTSIDE RECORDS SUMMARY | 2025-07-02 02:31 | XMS_ITS | Encounter Summary ---
Author Organization [facility] Address [address] [place] [address] Care Team Providers Care Ice Cream Dispenser Name Role Phone Renzo Andres M.D. Primary Care Provider Encounter Details Date Type Department Care Team (Late st Contact Info) Description 06/27/2025 Orders Only [facility], [facility], Ninth Floor [address] [place] [address] Analia Carter, MANAGER FUND, C.N.P. [address] [place] [phone] Transplant Bone Marrow Allogeneic (HCC); Leukemia Myeloid [...] things needed for daily living? No 06/24/2025 [facility] Utilities Answer Date Recorded In the [...] Sex Assigned at Female 12/26/2018 8:37 PM LANG INTERPRETER Legal Sex Female 2:43 PM LANG INTERPRETER Gender Identity Female 12/26/2018 8:37 PM LANG INTERPRETER Sexual Orientation Choose not to disclose 2020 3:46 PM CDT documented as of this encounter Plan of Treatment Upcoming Encounters Date Type Department Care Team (Latest Contact Info) Description 07/03/2025 8:00 AM CDT Telemedicine Department of Palliative Care in [place], [place] [address] [place] [address] Yary Landa D.O. [address] [place] [address] 07/15/2025 9:00 AM CDT Telemedicine [facility] in [place], [place] [address] [place] [phone] Jessica Rousseau M.B.B.S. [address] [place] [phone] 08/11/2025 9:00 AM CDT Nurse Only Section of Infectious Diseases in [place], [place] [address] [place] [phone] Jessica Rousseau M.B.B.S. [address] [place] [phone] 08/11/2025 10:20 AM CDT Comprehensive Visit Division of Gastroenterology in [place], [place] [address] [place] [phone] Jessica Rousseau M.B.B.S. [address] [place] [phone] 08/11/2025 1:00 PM CDT Clinical Support Department of Palliative Care in [place], [place] [address] [place] [phone] Uma Aly APRN, C.N.P., M.S.N. [address] [place] [phone] 08/13/2025 10:00 AM CDT Lab Department of Laboratory Medicine and Pathology, [facility], in [place], [place] [address] [place] [phone] Jessica Rousseau M.B.B.S. [address] [place] [phone] 08/13/2025 10:30 AM CDT [facility] in [place], [place] [address] [place] [address] Jessica Rousseau M.B.B.S. [address] [place] [phone] 08/13/2025 11:00 AM CDT Nurse Only [facility] Transplantation and Clinical Regeneration in [place], [place] [address] [place] [address] Jessica Rousseau M.B.B.S. [address] [place] [phone] 08/13/2025 11:30 AM CDT Office Visit [facility] in [place], [place] [address] [place] [address] Jessica Rousseau M.B.B.S. 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 [address] [place] [address] [place] [address] PCP - General Family Medicine 04/25/23 documented as of this encounter
--- OUTSIDE RECORDS SUMMARY | 2025-07-02 02:31 | XMS_ITS | Encounter Summary ---
Author Organization [facility] Address [address] [place] [address] Care Team Providers Care Special Order Jeweler Name Role Phone Renzo Andres M.D. Primary Care Provider Reason for Visit * Reason Onset Date Comments Nurse Assessment 06/12/2025 Abdominal Pain 06/12/2025 Encounter Details Date Type Department Care Team (Latest Contact Info) Description 06/12/2025 Clinical Communication Pedro Fatima [place] for Transplantation and Clinical Regeneration in [place], [place] [address] [place] [address] Daniela Mercer R.N., BMT-CN [address] [place] [address] Nurse Assessment; Abdominal Pain Social History Tobacco [...] for daily living? No 06/12/2025 [facility] Utilities Answer Date Recorded In the past 12 months has e [employer], gas, oil, or water [employer] threatened to shut off services in your [...] Sex Assigned at Female 12/26/2018 8:37 PM RETURN CLERK Legal Sex Female 2:43 PM RETURN CLERK Gender Identity Female 12/26/2018 8:37 PM RETURN CLERK Sexual Orientation Choose not to disclose [...] CDT Telemedicine Department of Palliative Care in [place], [place] [address] [place] [phone] Yary Landa, DeniseOKatalina [address] [place] [phone] 07/15/2025 9:00 AM CDT Telemedicine Pedro Aravind [facility] for Transplantation and Clinical Regeneration in [place], [place] [address] [place] [phone] Jessica Rousseau M.B.B.S. [address] [place] [phone] 08/11/2025 9:00 AM CDT Nurse Only Section of Infectious Diseases in [place], [place] [address] [place] [phone] Jessica Rousseau M.B.B.S. [address] [place] [phone] 08/11/2025 10:20 AM CDT Comprehensive Visit Division of Gastroenterology in [place], [place] [address] [place] [address] Jessica Rousseau M.B.B.S. [address] [place] [phone] 08/11/2025 1:00 PM CDT Clinical Support Department of Palliative Care in [place], [place] [address] [place] [address] Uma Aly APRN, C.N.P., M.S.N. [address] [place] [phone] 08/13/2025 10:00 AM CDT Lab Department of Laboratory Medicine and Pathology, [facility], in [place], [place] [address] [place] [address] Jessica Rousseau M.B.B.S. [address] [place] [phone] 08/13/2025 10:30 AM CDT Office Visit Pedro Fatima [place] [facility] Transplantation and Clinical Regeneration in [place], [place] [address] [place] [address] Jessica Rousseau M.B.B.S. [address] [place] [phone] 08/13/2025 11:00 AM CDT Nurse Only [facility] in [place], [place] [address] [place] [address] Jessica Rousseau M.B.B.S. [address] [place] [address] 08/13/2025 11:30 AM CDT Office Visit [facility] in [place], [place] [address] [place] [address] Jessica Rousseau M.B.B.S. [address] [place] [address] documented as of this encounter Visit Diagnoses Not on filedocumented in this encounter Additional Health Concerns Infection Onset Date Last Indicated Resolved Time Protective Environment 03/02/2023 03/02/2023 Assessment Noted Time PHQ-9 Depression Total Score: 2 12/10/19 25 2:46 PM RETURN CLERK documented as of this encounter Care Teams Special Order Jeweler Relationship Specialty Start Date End Date Renzo Andres M.D. NPAmanda: [phone] [address] [place] [address] [place] [address] PCP - General Family Medicine 04/25/23 documented as of this encounter
--- OUTSIDE RECORDS SUMMARY | 2025-07-02 02:33 | XMS_ITS | Encounter Summary ---
Author Organization [facility] Address [address] [place] [address] Care Team Providers Care Sales Development Consultant Name Role Phone Renzo Andres M.D. Primary Care Provider Reason for Visit * Reason Onset Date Comments Nurse Assessment 06/02/2025 Encounter Details Date Type Department Care Team (Latest Contact Info) Description 06/02/2025 Clinical Communication Pedro Fatima [place] for Transplantation and Clinical Regeneration in [place], [place] [address] [place] [address] Transplant, Coordinator, RFritz Nurse Assessment Social History [...] [facility] to live 05/28/2025 Education Answer Date Recorded What is the highest level of school you have completed or the highest degree you have received? Some college, no degree 04/24/2019 Comments No Sex and Gender Information Value Date Recorded Sex Assigned at Female 12/26/2018 8:37 PM DRAGLINE ENGINEER Legal Sex Female 2:43 PM DRAGLINE ENGINEER Gender Identity Female 12/26/2018 8:37 PM DRAGLINE ENGINEER Sexual Orientation Choose not to disclose [...] CDT Telemedicine Department of Palliative Care in [place], [place] [address] [place] [phone] Yary Landa D.O. [address] [place] [phone] 07/15/2025 9:00 AM CDT Telemedicine [facility]ravind [facility] for Transplantation and Clinical Regeneration in [place], [place] [address] [place] [phone] Jsesica Rousseau M.B.B.S. [address] [place] [phone] 08/11/2025 9:00 AM CDT Nurse Only Section of Infectious Diseases in [place], [place] [address] [place] [phone] Jessica Rousseau M.B.B.S. [address] [place] [phone] 08/11/2025 10:20 AM CDT Comprehensive Visit Division of Gastroenterology in [place], [place] [address] [place] [address] Jessica Rousseau M.B.B.S. [address] [place] [phone] 08/11/2025 1:00 PM CDT Clinical Support Department of Palliative Care in [place], [place] [address] [place] [address] Uma Aly APRN, C.N.P., M.S.N. [address] [place] [phone] 08/13/2025 10:00 AM CDT Lab Department of Laboratory Medicine and Pathology, [facility], in [place], [place] [address] [place] [phone] Jessica Rousseau M.B.B.S. [address] [place] [phone] 08/13/2025 10:30 AM CDT Office Visit Pedro Fatima [place] for Transplantation and Clinical Regeneration in [place], [place] [address] [place] [address] Jessica Rousseau M.B.B.S. [address] [place] [phone] 08/13/2025 11:00 AM CDT Nurse Only Pedro Fatima [place] for Transplantation and Clinical Regeneration in [place], [place] [address] [place] [address] Jessica Rousseau M.B.B.S. [address] [place] [phone] 08/13/2025 11:30 AM CDT Office Visit [facility] in [place], [place] [address] [place] [address] Jessica Rousseau M.B.B.S. [address] [place] [address] documented as of this encounter Visit Diagnoses Not on filedocumented in this encounter Additional Health Concerns Infection Onset Date Last Indicated Resolved Time Protective Environment 03/02/2023 03/02/2023 Assessment Noted Time PHQ-9 Depression Total Score: 2 12/10/19 25 2:46 PM DRAGLINE ENGINEER documented as of this encounter Care Teams Sales Development Consultant Relationship Specialty Start Date End Date Renzo Andres M.D. [address] [place] [phone] PCP - General Family Medicine 04/25/23 documented as of this encounter
--- OUTSIDE RECORDS SUMMARY | 2025-07-02 02:34 | XMS_ITS | Encounter Summary ---
Author Organization [facility] Address [address] [place] [address] Care Team Providers Care Order Selector Name Role Phone Renzo Andres M.D. Primary Care Provider Reason for Referral * Specialty Diagnoses / Procedures Referred By Estefania acosta Referred To Contact Diagnoses Transplant Bone Marrow Allogeneic (HCC) RST [facility] [address] [place] [address] Phone: tel: [facility] Referral ID Status Reason Start Date Expiration Date Visits Re quested Visits Authorized Encounter Details Date Type Department Care Team (Late st Contact Info) Description 06/30/2025 Orders Only [facility], [facility], Ninth Floor [address] [place] [address] Varghese Fields, R.N. Transplant Bone Marrow Allogeneic (HCC) (Primary Dx) [...] things needed for daily living? No 06/24/2025 [facility] Utilities Answer Date Recorded In [...] Sex Assigned at Female 12/26/2018 8:37 PM PORTFOLIO ARCHITECT Legal Sex Female 2:43 PM PORTFOLIO ARCHITECT Gender Identity Female 12/26/2018 8:37 PM PORTFOLIO ARCHITECT Sexual Orientation Choose not to disclose 2020 3:46 PM CDT documented as of this encounter Plan of Treatment Upcoming Encounters Date Type Department Care Team (Latest Contact Info) Description 07/03/2025 8:00 AM CDT Telemedicine Department of Palliative Care in [place], [place] [address] [place] [phone] Yary Landa D.O. [address] [place] [phone] 07/15/2025 9:00 AM CDT Telemedicine [facility] in [place], [place] [address] [place] [phone] Jessica Rousseau M.B.B.S. [address] [place] [phone] 08/11/2025 9:00 AM CDT Nurse Only Section of Infectious Diseases in [place], [place] [address] [place] [phone] Jessica Rosuseau M.B.B.S. [address] [place] [phone] 08/11/2025 10:20 AM CDT Comprehensive Visit Division of Gastroenterology in [place], [place] [address] [place] [phone] Jessica Rousseau M.B.B.S. [address] [place] [phone] 08/11/2025 1:00 PM CDT Clinical Support Department of Palliative Care in [place], [place] [address] [place] [phone] Uma Aly APRN, C.N.P., M.S.N. [address] [place] [phone] 08/13/2025 10:00 AM CDT Lab Department of Laboratory Medicine and Pathology, [facility], in [place], [place] [address] [place] [phone] Jessica Rousseau M.B.B.S. [address] [place] [phone] 08/13/2025 10:30 AM CDT Office Visit [facility] Transplantation and Clinical Regeneration in [place], [place] [address] [place] [address] Jessica Rousseau M.B.B.S. [address] [place] [phone] 08/13/2025 11:00 AM CDT Nurse Only [facility] Transplantation and Clinical Regeneration in [place], [place] [address] [place] [address] Jessica Rousseau M.B.B.S. [address] [place] [phone] 08/13/2025 11:30 AM CDT Office Visit [facility] Transplantation and Clinical Regeneration in [place], [place] [address] [place] [address] Jessica Rousseau M.B.B.S. [address] [place] [phone] Scheduled Referrals Name Type Priority Associated Diagnoses Orde r Schedule Hydration Infusion Therapy; Outpatient Referral Routine Transplant Bone Marrow Allogeneic (HCC) Expected: 06/30/2025, Expires: 09/30/2026 documented as of this encounter Visit Diagnoses Diagnosis Transplant Bone Marrow Allogeneic (HCC)- Primary documented in this encounter Additional Health Concerns Infection Onset Date Last Indicated Resolved Time Protective Environment 03/02/2023 03/02/2023 Assessment Noted Time PHQ-9 Depression Total Score: 2 12/10/19 25 2:46 PM PORTFOLIO ARCHITECT documented as of this encounter Care Teams Order Selector Relationship Specialty Start Date End Date Renzo Andres M.D. [address] [place] [address] [place] [phone] PCP - General Family Medicine 04/25/23 documented as of this encounter
--- OUTSIDE RECORDS SUMMARY | 2025-07-02 02:34 | XMS_ITS | Encounter Summary ---
Author Organization [facility] Address [address] [place] [address] Care Team Providers Care Adviser Sales Name Role Phone Renzo Andres M.D. Primary Care Provider Encounter Details Date Type Department Care Team (Late st Contact Info) Description 06/30/2025 Orders Only Pedro Nazario [facility] for Transplantation and Clinical Regeneration in [place], [place] [address] [place] [phone] Jessica Rousseau M.B.B.S. [address] [place] [phone] Social History Tobacco Use Types Packs/Day Years [...] things needed for daily living? No 06/24/2025 [facility] Utilities Answer Date Recorded In the past 12 months has th e electric, gas, oil, or water company threatened to shut off services in your home? No 06/24/2025 Depression Answer Date Recor ded PHQ-9 Total Score (max 27) 2 12/10 Housing Stability Answer Date Recorded What is your living situation today? I have a [facility] place to live 06/24/2025 Education Answer Date Recorded What is the highest level of school you have completed or the highest degree you have received? Some college, no degree 04/24/2019 Comments No Sex and Gender Information Value Date Recorded Sex Assigned at Female 12/26/2018 8:37 PM HAZARDOUS WASTE TECHNICIAN Legal Sex Female 2:43 PM HAZARDOUS WASTE TECHNICIAN Gender Identity Female 12/26/2018 8:37 PM HAZARDOUS WASTE TECHNICIAN Sexual Orientation Choose not to disclose 2020 3:46 PM CDT documented as of this encounter Plan of Treatment Upcoming Encounters Date Type Department Care Team (Latest Contact Info) Description 07/03/2025 8:00 AM CDT Telemedicine Department of Palliative Care in [place], [place] 200 [place] [address] Yary Landa D.O. 200 [place] [phone] 07/15/2025 9:00 AM CDT [facility]medicine [facility] in [place], [place] [address] [place] [address] Jessica Rousseau M.B.B.S. [address] [place] [phone] 08/11/2025 9:00 AM CDT Nurse Only Section of Infectious Diseases in [place], [place] [address] [place] [phone] Jessica Rousseau M.B.B.S. [address] [place] [phone] 08/11/2025 10:20 AM CDT Comprehensive Visit Division of Gastroenterology in [place], [place] [address] [place] [phone] Jessica Rousseau M.B.B.S. [address] [place] [phone] 08/11/2025 1:00 PM CDT Clinical Support Department of Palliative Care in [place], [place] [address] [place] [address] Uma Aly APRN, C.N.P., M.S.N. [address] [place] [phone] 08/13/2025 10:00 AM CDT Lab Department of Laboratory Medicine and Pathology, [facility], in [place], [place] [address] [place] [address] Jessica Rousseau M.B.B.S. [address] [place] [phone] 08/13/2025 10:30 AM CDT [facility] in [place], [place] [address] [place] [address] Jessica Rousseau M.B.B.S. [address] [place] [phone] 08/13/2025 11:00 AM CDT Nurse Only [facility] Transplantation and Clinical Regeneration in [place], [place] [address] [place] [address] Jessica Rousseau M.B.B.S. [address] [place] [phone] 08/13/2025 11:30 AM CDT Office Visit [facility] Transplantation and Clinical Regeneration in [place], [place] [address] [place] [address] Jessica Rousseau M.B.B.S. [address] [place] [phone] documented as of this encounter Visit Diagnoses Not on filedocumented in this encounter Additional Health Concerns Infection Onset Date Last Indicated Resolved Time Protective Environment 03/02/2023 03/02/2023 Assessment Noted Time PHQ-9 Depression Total Score: 2 12/10/19 25 2:46 PM HAZARDOUS WASTE TECHNICIAN documented as of this encounter Care Teams Adviser Sales Relationship Specialty Start Date End Date Renzo Andres M.D. [address] [place] [phone] PCP - General Family Medicine 04/25/23 documented as of this encounter
--- OUTSIDE RECORDS SUMMARY | 2025-07-02 02:34 | XMS_ITS | Encounter Summary ---
Author Organization [facility] Address [address] [place] [address] Care Team Providers Care Director Broadcast Name Role Phone Renzo Andres M.D. Primary Care Provider [phone] Reason for Referral * Outpatient (Routine) - Authorized Specialty Diagnoses / Procedures Referred By Contheidy t Referred To Contact Palliative Medicine Diagnoses Leukemia Myeloid Chronic BCR/ABL Positive Not Having Achieved Remission (HCC) Anxiety Generalized Disorder Uma Aly APRN, C.N.PKatalina, M.S.N. [address] [place] [phone] Phone: tel: fax: [facility] Referral ID Status Reason Start Date Expiration Date V isits Requested Visits Authorized [id number] Authorized 06/30/2025 12/30/2026 1 1 Scheduling Instructions In person, close to other palliative provider visit. Encounter Details Date Type Department Care Team (Late st Contact Info) Description 06/30/2025 Clinical Communication Department of Palliative Care in [place], [place] [address] [place] [phone] Uma Aly APRN, C.N.P., M.S.N. 200 [place] [phone] Social History Tobacco Use Types Packs/Day Years [...] for daily living? No 06/24/2025 [facility] Utilities Answer Date Recorded In the past 12 months has [facility] electric, gas, oil, or water company threatened to shut off services in your home? No 06/24/2025 Depression Answer Date Recor ded PHQ-9 Total Score (max 27) 2 12/10 Housing Stability Answer Date Recorded What is your living situation today? I have a [facility] place to live 06/24/2025 Education Answer Date Recorded What is the highest level of school you have completed or the highest degree you have received? Some college, no degree 04/24/2019 Comments No Sex and Gender Information Value Date Recorded Sex Assigned at Female 12/26/2018 8:37 PM RN BURN Legal Sex Female 2:43 PM RN BURN Gender Identity Female 12/26/2018 8:37 PM RN BURN Sexual Orientation Choose not to disclose 2020 3:46 PM CDT documented as of this encounter Plan of Treatment Upcoming Encounters Date Type Department Care Team (Latest Contact Info) Description 07/03/2025 8:00 AM CDT Telemedicine Department of Palliative Care in [place], [place] [address] [place] [phone] Yary Landa D.O. [address] [place] [phone] 07/15/2025 9:00 AM CDT Telemedicine [facility] in [place], [place] [address] [place] [phone] Jessica Rousseau M.B.B.S. [address] [place] [phone] 08/11/2025 9:00 AM CDT Nurse Only Section of Infectious Diseases in [address] [phone] Jessica Rousseau M.B.B.S. [address] [place] [phone] 08/11/2025 10:20 AM CDT Comprehensive Visit Division of Gastroenterology in [place], [place] [address] [place] [phone] Jessica Rousseau M.B.B.S. [address] [place] [phone] 08/11/2025 1:00 PM CDT Clinical Support Department of Palliative Care in [place], [place] [address] [place] [phone] Uma Aly APRN, CKatalinaNKatalinaP., M.S.N. [address] [place] [phone] 08/13/2025 10:00 AM CDT Lab Department of Laboratory Medicine and Pathology, [facility], in [place], [place] [address] [place] [address] Jessica Rousseau M.B.B.S. [address] [place] [phone] 08/13/2025 10:30 AM CDT Office Visit [facility] Transplantation and Clinical Regeneration in [place], [place] [address] [place] [phone] Jessica Rousseau M.B.B.S. [address] [place] [phone] 08/13/2025 11:00 AM CDT Nurse Only [facility] Transplantation and Clinical Regeneration in [place], [place] [address] [place] [address] Jessica Rousseau M.B.B.S. [address] [place] [phone] 08/13/2025 11:30 AM CDT Office Visit [facility] Transplantation and Clinical Regeneration in [place], [place] [address] [place] [phone] Jessica Rousseau M.B.B.S. [address] [place] [phone] Scheduled Referrals Name Type Priority Associated Diagnoses Orde r Schedule Palliative Care nurse therapy visit (clinic) Outpatient Referral Routine Leukemia Myeloid Chronic BCR/ABL Positive Not Having Achieved Remission (HCC) Anxiety Generalized Disorder Expected: 07/03/2025, Expires: 09/30/2026 documented as of this encounter Visit Diagnoses Diagnosis Leukemia Myeloid Chronic BCR/ABL Positive Not Having Achieved Remission (HCC)- Primary Anxiety Generalized Disorder documented in this encounter Additional Health Concerns Infection Onset Date Last Indicated Resolved Time Protective Environment 03/02/2023 03/02/2023 Assessment Noted Time PHQ-9 Depression Total Score: 2 12/10/19 25 2:46 PM RN BURN documented as of this encounter Care Teams Director Broadcast Relationship Specialty Start Date End Date Renzo Andres M.D. [address] [place] [phone] PCP - General Family Medicine 04/25/23 documented as of this encounter
--- OUTSIDE RECORDS SUMMARY | 2025-07-02 02:34 | XMS_ITS | Encounter Summary ---
Author Organization [facility] Address [address] [place] [address] Care Team Providers Care Supervisor Clam Bed Name Role Phone Renzo Andres M.D. Primary Care Provider Reason for Referral * Specialty Diagnoses / Procedures Referred By Estefania acosta Referred To Contact Diagnoses Transplant Bone Marrow Allogeneic (HCC) RST [facility] [address] [place] [address] Phone: tel: [facility] Referral ID Status Reason Start Date Expiration Date Visits Re quested Visits Authorized Encounter Details Date Type Department Care Team ([facility] st Contact Info) Description 06/30/2025 Orders Only [facility], [facility], Ninth Floor [address] [place] [phone] Jimmy Rodriguez M.D. [address] [place] [phone] Transplant Bone Marrow Allogeneic (HCC) (Primary Dx) [...] daily living? No 06/24/[address] [facility] Utilities Answer Date Recorded In the past 12 months has e electric, gas, oil, or water company threatened to shut off services in your home? No 06/24/2025 Depression Answer Date Recor ded PHQ-9 Total Score (max 27) 2 12/10 Housing Stability Answer Date Recorded What is your living situation today? I have a [facility] place to live 06/24/2025 Education Answer Date Recorded What is the highest level of school you have completed or the highest degree you have received? Some college, no degree 04/24/2019 Comments No Sex and Gender Information Value Date Recorded Sex Assigned at Female 12/26/2018 8:37 PM ORDER PROCESSING MANAGER Legal Sex Female 2:43 PM ORDER PROCESSING MANAGER Gender Identity Female 12/26/2018 8:37 PM ORDER PROCESSING MANAGER Sexual Orientation Choose not to disclose 2020 3:46 PM CDT documented as of this encounter Plan of Treatment Upcoming Encounters Date Type Department Care Team (Latest Contact Info) Description 07/03/2025 8:00 AM CDT Telemedicine Department of Palliative Care in [place], [place] [address] [place] [phone] Yary Landa D.O. [address] [place] [phone] 07/15/2025 9:[address] [facility] for Transplantation and Clinical Regeneration in [place], [place] [address] [place] [phone] Jessica Roussaeu M.B.B.S. [address] [place] [phone] 08/11/2025 9:00 AM CDT Nurse Only Section of Infectious Diseases in [place], [place] [address] [place] [phone] Jessica Rousseau M.B.B.S. [address] [place] [phone] 08/11/2025 10:20 AM CDT Comprehensive Visit Division of Gastroenterology in [place], [place] [address] [place] [phone] Jessica Rousseau M.B.B.S. [address] [place] [phone] 08/11/2025 1:00 PM CDT Clinical Support Department of Palliative Care in [place], [place] [address] [place] [phone] Uma Aly APRN, C.N.P., M.S.N. [address] [place] [phone] 08/13/2025 10:00 AM CDT Lab Department of Laboratory Medicine and Pathology, [facility] in [place], [place] [address] [place] [address] Jessica Rousseau M.B.B.S. [address] [place] [phone] 08/13/2025 10:30 AM CDT Office Visit [facility] Transplantation and Clinical Regeneration in [place], [place] [address] [place] [phone] Jessica Rousseau M.B.B.S. [address] [place] [phone] 08/13/2025 11:00 AM CDT Nurse Only [facility] Transplantation and Clinical Regeneration in [place], [place] [address] [place] [address] Jessica Rousseau M.B.B.S. [address] [place] [phone] 08/13/2025 11:30 AM CDT Office Visit [facility] Transplantation and Clinical Regeneration in [place], [place] [address] [place] [phone] Jessica Rousseau M.B.B.S. [address] [place] [phone] Scheduled Referrals Name Type Priority Associated Diagnoses Order Schedule Hydration Infusion Therapy; Outpatient Referral Routine Transplant Bone Marrow Allogeneic (HCC) 1 Occurrences starting 06/30/2025 until 09/30/2026 documented as of this encounter Visit Diagnoses Diagnosis Transplant Bone Marrow Allogeneic (HCC)- Primary documented in this encounter Additional Health Concerns Infection Onset Date Last Indicated Resolved Time Protective Environment 03/02/2023 03/02/2023 Assessment Noted Time PHQ-9 Depression Total Score: 2 12/10/19 25 2:46 PM ORDER PROCESSING MANAGER documented as of this encounter Care Teams Supervisor Clam Bed Relationship Specialty Start Date End Date Renzo Andres M.D. [address] [place] [address] [place] [phone] PCP - General Family Medicine 04/25/23 documented as of this encounter
--- OUTSIDE RECORDS SUMMARY | 2025-07-02 02:34 | XMS_ITS | Encounter Summary ---
Author Organization [facility] Address [address] [place] [address] Care Team Providers Care Radio Maintainer Name Role Phone Renzo Andres M.D. Primary Care Provider Encounter Details Date Type Department Care Team (Late st Contact Info) Description 06/30/2025 Orders Only Pedro Nazario [facility] for Transplantation and Clinical Regeneration in [place], [place] [address] [place] [phone] Jessica Rousseau M.B.B.S. [address] [place] [phone] Transplant Bone Marrow Allogeneic (HCC) (Primary Dx) [...] have a [facility] place to live 06/24/2025 Education Answer Date Recorded What is the highest level of school you have completed or the highest degree you have received? Some college, no degree 04/24/2019 Comments No Sex and Gender Information Value Date Recorded Sex Assigned at Female 12/26/2018 8:37 PM CAPSULE FILLER Legal Sex Female 2:43 PM CAPSULE FILLER Gender Identity Female 12/26/2018 8:37 PM CAPSULE FILLER Sexual Orientation Choose not to disclose 2020 3:46 PM CDT documented as of this encounter Plan of Treatment Upcoming Encounters Date Type Department Care Team (Latest Contact Info) Description 07/03/2025 8:00 AM CDT Telemedicine Department of Palliative Care in [place], [place] [address] [place] [address] Yary Landa D.O. [address] [place] [address] 07/15/2025 9:00 AM CDT [facility]medicine [facility] in [place], [place] [address] [place] [phone] Jessica Rousseau M.B.B.S. [address] [place] [phone] 08/11/2025 9:00 AM CDT Nurse Only Section of Infectious Diseases in [place], [place] [address] [place] [phone] Jessica Rousseau M.B.B.S. [address] [place] [phone] 08/11/2025 10:20 AM CDT Comprehensive Visit Division of Gastroenterology in [address] [phone] Jessica Rousseau M.B.B.S. [address] [place] [phone] 08/11/2025 1:00 PM CDT Clinical Support Department of Palliative Care in [address] [phone] Uma Aly APRN, C.N.P., M.S.N. [address] [place] [phone] 08/13/2025 10:00 AM CDT Lab Department of Laboratory Medicine and Pathology, [facility], in [place], [place] [address] [place] [phone] Jessica Rousseau M.B.B.S. [address] [place] [phone] 08/13/2025 10:30 AM CDT Office Visit [facility] in [place], [place] [address] [place] [address] Jessica Rousseau M.B.B.S. [address] [place] [phone] 08/13/2025 11:00 AM CDT Nurse Only [facility] Transplantation and Clinical Regeneration in [place], [place] [address] [place] [phone] Jessica Rousseau M.B.B.S. [address] [place] [phone] 08/13/2025 11:30 AM CDT Office Visit [facility] Transplantation and Clinical Regeneration in [place], [place] [address] [place] [phone] Jessica Rousseau M.B.B.S. [address] [place] [phone] documented as of this encounter Results * Amylase, Total (06/30/2025 1:12 PM CDT) Amylase, Total, S 50 28 - 100 U/L 06/30/2025 2:24 PM CDT DTL Blood (Blood, Venous) 06/30/2025 1:12 PM CDT 06/30/2025 1:19 PM CDT Jessica DowlingBKatalinaSKatalina LAB BLOOD ADD-ON Final Res ult [facility] [address] [place] [address], [facility] DTL [facility] [address] [place] [address] * Lipase (06/30/2025 1:12 PM CDT) Lipase, S 18 13 - 60 U/L 06/30/2025 2: 24 PM CDT DTL Blood (Blood, Venous) 06/30/2025 1:12 PM CDT 06/30/2025 1:19 PM CDT us Jessica Barnes LAB BLOOD ADD-ON Final Res ult [facility] [address] [place] [address], [facility] DTL [facility] [address] [place] [address] documented in this encounter Visit Diagnoses Diagnosis Transplant Bone Marrow Allogeneic (HCC)- Primary documented in this encounter Additional Health Concerns Infection Onset Date Last Indicated Resolved Time Protective Environment 03/02/2023 03/02/2023 Assessment Noted Time PHQ-9 Depression Total Score: 2 12/10/19 25 2:46 PM CAPSULE FILLER documented as of this encounter Care Teams Radio Maintainer Relationship Specialty Start Date End Date Renzo Andres M.D. NPAmanda: [phone] [address] [place] [address] [place] [phone] PCP - General Family Medicine 04/25/23 documented as of this encounter
--- OUTSIDE RECORDS SUMMARY | 2025-07-02 02:36 | XMS_ITS | Encounter Summary ---
Author Organization [facility] Address [address] [place] [address] Care Team Providers Care Name Plate Stamper Name Role Phone Renzo Andres M.D. Primary Care Provider [phone] Encounter Details Date Type Department Care Team (Late st Contact Info) Description 07/01/2025 Orders Only Department of Cardiovascular Medicine in [place], [place] [address] [place] [phone] Leighton Andres M.D. [address] [place] [phone] Social History Tobacco Use Types Packs/Day Years [...] things needed for daily living? No 06/24/2025 [facility] Utilities Answer [...] Sex Assigned at Female 12/26/2018 8:37 PM [employer] Legal Sex Female 2:43 PM [employer] Gender Identity Female 12/26/2018 8:37 PM [employer] Sexual Orientation Choose not to disclose 2020 3:46 PM CDT documented as of this encounter Plan of Treatment Upcoming Encounters Date Type Department Care Team (Latest Contact Info) Description 07/03/2025 8:00 AM CDT Telemedicine Department of Palliative Care in [place], [place] 200 [place] [address] Yary Landa D.O. 200 [place] [address] 07/15/2025 9:00 AM CDT Telemedicine [facility] in [place], [place] [address] [place] [address] Jessica Rousseau M.B.B.S. [address] [place] [phone] 08/11/2025 9:00 AM CDT Nurse Only Section of Infectious Diseases in [place], [place] [address] [place] [address] Jessica Rousseau M.B.B.S. [address] [place] [phone] 08/11/2025 10:20 AM CDT Comprehensive Visit Division of Gastroenterology in [place], [place] [address] [place] [address] Jessica Rousseau M.B.B.S. [address] [place] [phone] 08/11/2025 1:00 PM CDT Clinical Support Department of Palliative Care in [place], [place] [address] [place] [address] Uma Aly APRN, C.N.P., M.S.N. [address] [place] [phone] 08/13/2025 10:00 AM CDT Lab Department of Laboratory Medicine and Pathology, [facility], in [place], [place] [address] [place] [address] Jessica Rousseau M.B.B.S. [address] [place] [phone] 08/13/2025 10:30 AM CDT Office Visit [facility] in [place], [place] [address] [place] [address] Jessica Rousseau M.B.B.S. [address] [place] [address] 08/13/2025 11:00 AM CDT Nurse Only [facility] in [place], [place] [address] [place] [address] Jessica Rousseau M.B.B.S. [address] [place] [phone] 08/13/2025 11:30 AM CDT Office Visit [facility] Transplantation and Clinical Regeneration in [place], [place] [address] [place] [address] Jessica Rousseau M.B.B.S. [address] [place] [phone] documented as of this encounter Visit Diagnoses Not on filedocumented in this encounter Additional Health Concerns Infection Onset Date Last Indicated Resolved Time Protective Environment 03/02/2023 03/02/2023 Assessment Noted Time PHQ-9 Depression Total Score: 2 12/10/19 25 2:46 PM [employer] documented as of this encounter Care Teams Name Plate Stamper Relationship Specialty Start Date End Date Renzo Andres M.D. [address] [place] [phone] PCP - General Family Medicine 04/25/23 documented as of this encounter
--- OUTSIDE RECORDS SUMMARY | 2025-07-02 02:36 | XMS_ITS | Encounter Summary ---
Author Organization [facility] Address [address] [place] [address] Care Team Providers Care Delivery Assistant Name Role Phone Renzo Andres M.D. Primary Care Provider [phone] Reason for Visit * Reason Onset Date Comments Phone Contact 07/01/2025 Abdominal Pain Encounter Details Date Type Department Care Team (Latest Contact Info) Description 07/01/2025 Clinical [facility] in [place], [place] [address] [place] [address] Jessica Rousseau M.B.B.S. [address] [place] [phone] Phone Contact (Abdominal Pain ) Social History Tobacco Use Types Packs/Day [...] daily living? No 06/24/[address] [facility] Utilities Answer Date Recorded In [...] Sex Assigned at Female 12/26/2018 8:37 PM [employer]STRUCTION IR[employer]WORK[employer] HEL[employer] Legal Sex Female 2:43 PM [employer] HEL[employer] Gender Identity Female 12/26/2018 8:37 PM [employer] Sexual Orientation Choose not to disclose 2020 3:46 PM CDT documented as of this encounter Plan of Treatment Upcoming Encounters Date Type Department Care Team (Latest Contact Info) Description 07/03/2025 8:00 AM CDT Telemedicine Department of Palliative Care in [place], [place] [address] [place] [address] Yary Landa D.O. [address] [place] [address] 07/15/2025 9:00 AM CDT Telemedicine [facility] in [place], [place] [address] [place] [address] Jessica Rousseau M.B.B.S. [address] [place] [phone] 08/11/2025 9:00 AM CDT Nurse Only Section of Infectious Diseases in [place], [place] [address] [place] [phone] Jessica Rousseau M.B.B.S. [address] [place] [phone] 08/11/2025 10:20 AM CDT Comprehensive Visit Division of Gastroenterology in [place], [place] [address] [place] [phone] Jessica Rousseau M.B.B.S. [address] [place] [phone] 08/11/2025 1:00 PM CDT Clinical Support Department of Palliative Care in [place], [place] [address] [place] [phone] Uma Aly APRN, C.N.P., M.S.N. [address] [place] [phone] 08/13/2025 10:00 AM CDT Lab Department of Laboratory Medicine and Pathology, [facility], in [place], [place] [address] [place] [phone] Jessica Rousseau M.B.B.S. [address] [place] [phone] 08/13/2025 10:30 AM CDT [facility] in [place], [place] [address] [place] [address] Jessica Rousseau M.B.B.S. [address] [place] [phone] 08/13/2025 11:00 AM CDT Nurse Only [facility] Transplantation and Clinical Regeneration in [place], [place] [address] [place] [address] Jessica Rousseau M.B.B.S. [address] [place] [phone] 08/13/2025 11:30 AM CDT Office Visit [facility] Transplantation and Clinical Regeneration in [place], [place] [address] [place] [address] Jessica Rousseau M.B.B.S. [address] [place] [phone] documented as of this encounter Visit Diagnoses Not on filedocumented in this encounter Additional Health Concerns Infection Onset Date Last Indicated Resolved Time Protective Environment 03/02/2023 03/02/2023 Assessment Noted Time PHQ-9 Depression Total Score: 2 12/10/19 25 2:46 PM [employer]STRU[employer]WORK[employer] HELPER documented as of this encounter Care Teams Delivery Assistant Relationship Specialty Start Date End Date Renzo Andres M.D. [address] [place] [phone] PCP - General Family Medicine 04/25/23 documented as of this encounter
--- OUTSIDE RECORDS SUMMARY | 2025-07-02 02:36 | XMS_ITS | Encounter Summary ---
Author Organization [facility] Address [address] [place] [address] Care Team Providers Care Field Auditor Name Role Phone Renzo Andres M.D. Primary Care Provider Encounter Details Date Type Department Care Team (Latest Contact Info) Description 07/01/2025 Clinical Communication Pedro Aravind [facility] for [facility] Clinical Regeneration in [place], [place] [address] [place] [address] Uma Goel, R.N. Social History Tobacco Use Types Packs/Day Years [...] No 06/24/2025 [facility] Utilities Answer Date Recorded In the past 12 months has th e electric, gas, oil, or water company threatened to shut off services in your home? No 06/24/2025 Depression Answer Date Recor ded PHQ-9 Total Score (max 27) 2 12/10 Housing Stability Answer Date Recorded What is your living situation today? I have a [facility] place to live 06/24/2025 Education Answer Date Recorded What is the highest level of school you have completed or the highest degree you have received? Some college, no degree 04/24/2019 Comments No Sex and Gender Information Value Date Recorded Sex Assigned at Female 12/26/2018 8:37 PM [employer] Legal Sex Female 2:43 PM [employer] Gender Identity Female 12/26/2018 8:37 PM [employer] Sexual Orientation Choose not to disclose 2020 3:46 PM CDT documented as of this encounter Plan of Treatment Upcoming Encounters Date Type Department Care Team (Latest Contact Info) Description 07/03/2025 8:00 AM CDT Telemedicine Department of Palliative Care in [place], [place] 200 [place] [address] Yary Landa D.O. 200 [place] [address] 07/15/2025 9:00 AM CDT Telemedicine [facility] in [place], [place] [address] [place] [address] Jessica Rousseau M.B.B.S. [address] [place] [phone] 08/11/2025 9:00 AM CDT Nurse Only Section of Infectious Diseases in [place], [place] [address] [place] [address] Jessica Rousseau M.B.B.S. [address] [place] [phone] 08/11/2025 10:20 AM CDT Comprehensive Visit Division of Gastroenterology in [place], [place] [address] [place] [phone] Jessiac Rousseau M.B.B.S. [address] [place] [phone] 08/11/2025 1:00 PM CDT Clinical Support Department of Palliative Care in [place], [place] [address] [place] [address] Uma Aly APRN, C.N.P., M.S.N. [address] [place] [phone] 08/13/2025 10:00 AM CDT Lab Department of Laboratory Medicine and Pathology, [facility], in [place], [place] [address] [place] [address] Jessica Rousseau M.B.B.S. [address] [place] [phone] 08/13/2025 10:30 AM CDT [facility] in [place], [place] [address] [place] [phone] Jessica Rousseau M.B.B.S. [address] [place] [address] 08/13/2025 11:00 AM CDT Nurse Only Pedro Nazario [facility] Trans[facility] Clinical Regeneration in [place], [place] [address] [place] [address] Jessica Rousseau M.B.B.S. [address] [place] [phone] 08/13/2025 11:30 AM CDT [facility] in [place], [place] [address] [place] [address] Jessica Rousseau M.B.B.S. [address] [place] [phone] documented as of this encounter Visit Diagnoses Not on filedocumented in this encounter Additional Health Concerns Infection Onset Date Last Indicated Resolved Time Protective Environment 03/02/2023 03/02/2023 Assessment Noted Time PHQ-9 Depression Total Score: 2 12/10/19 25 2:46 PM [employer]G [employer] documented as of this encounter Care Teams Field Auditor Relationship Specialty Start Date End Date Renzo Andres M.D. [address] [place] [phone] PCP - General Family Medicine 04/25/23 documented as of this encounter
[2025-07-02 02:44] VITALS: BP 138/74; PULSE 85; RESP 20; TEMP 36.7; O2SAT 97
== END 2025-07-02 02:30 | disposition home or self-care (01) ==
LOC: ED 02:21
PROVIDERS: Emergency Provider Family Medicine; PCP Registered Nurse
DX: R10.32 Left lower quadrant pain (principal); G89.29 Other chronic pain
CPT/HCPCS: 99283; A9270

== ENCOUNTER 2025-07-19 16:32 | Emergency (ER) | payer MEDICARE, BC, SELFPAY ==
--- OUTSIDE RECORDS SUMMARY | 2025-06-05 08:36 | XMS_ITS | Encounter Summary ---
Author Organization [facility] Address [address] [place] [address] Care Team Providers Care Beam House Inspector Name Role Phone Renzo Andres M.D. Primary Care Provider Reason for Referral * MRI/CAT/PET Scan (Routine) - Closed Specialty Diagnoses / Procedures Referred By Viviac t Referred To Contact Radiology Diagnoses Transplant Stem Cell (HCC) Procedures CT Chest Angiogram and Pulmonary Arteries with IV Contrast CT Chest with IV Contrast Jessica Avila APRN C.N.P., M.S.N. [address] [place] [address] Phone: tel: fax: [facility] Region Referral ID Status Reason Start Date Expiration Date Visits Re quested Visits Authorized [id number] Closed 06/03/2025 09/03/2026 1 1 Reason for Visit * MRI/CAT/PET Scan (Routine) - Closed Specialty Diagnoses / Procedures Referred By Contac t Referred To Contact Radiology Diagnoses Transplant Stem Cell (HCC) Procedures CT Chest Angiogram and Pulmonary Arteries with IV Contrast CT Chest with IV Contrast Jessica Avila APRN, C.N.P., M.S.N. 200 [place] [address] Phone: tel: fax: [facility] Region Referral ID Status Reason Start Date Expiration Date Visits Re quested Visits Authorized [id number] Closed 06/03/2025 09/03/2026 1 1 Encounter Details Date Type Department Care Team (Latest Contact Info) Description 06/05/2025 8:36 AM CDT - 06/05/2025 11:59 PM CDT Hospital Encounter Department of Radiology in [address] [phone] Jessica Avila APRN, C.N.P., M.S.N. 200 [place] [address] Transplant Stem Cell (HCC) Discharge Disposition: Home or Self Care Social History Tobacco Use Types Packs/Day Years Used Date Smoking Tobacco: Never Smokeless Tobacco: Never Alcohol Use Standard Drinks/Week Comments Yes 0 (1 standard drink = 0.6 oz pur e alcohol) social [facility] Utilities Answer Date Recorded In the past 12 months has e [employer], gas, oil, or water [employer] threatened to shut off services in your [...] a [facility] place to live 05/28/2025 Education Answer Date Recorded What is the highest level of school you have completed or the highest degree you have received? Some college, no degree 04/24/2019 Comments No Sex and Gender Information Value Date Recorded Sex Assigned at Female 12/26/2018 8:37 PM STUDENT DEVELOPMENT DEAN Legal Sex Female 2:43 PM STUDENT DEVELOPMENT DEAN Gender Identity Female 12/26/2018 8:37 PM STUDENT DEVELOPMENT DEAN Sexual Orientation Choose not to disclose 2020 [...] 5 04/29/2025 melatonin 5 mg tablet Take 5-10 mg by mouth at bedtime. naloxone (Narcan) [...] Chronic Pain/Nonacute Pain. 10 mL 05/13/2025 5 loperamide (Imodium A-D) 2 mg capsule Take 1 capsule (2 mg total) by mouth every 2 (two) hours as needed for diarrhea. Take with occurrence of diarrhea. May take up to 16 mg, or 8 doses daily. 05/17/2025 5 pantoprazole (Protonix) 40 mg EC tablet [...] Care Team (Late st Contact Info) Description 07/21/2025 11:00 AM CDT Telemedicine Department of Palliative Care in [place], [place] [address] [place] [phone] Meghan Osorio M.D. [address] [place] [phone] 07/22/2025 8:40 AM CDT Lab Department of Laboratory Medicine and Pathology, [facility], in [place], [place] [address] [place] [phone] Becky Hernandez APRN, C.N.P., D.N.P. [address] [place] [phone] 07/22/2025 9:30 AM CDT [facility] [place], [place] [address] [place] [phone] Becky Hernandez APRN, C.N.P., D.N.P. [address] [place] [phone] 07/30/2025 2:00 PM CDT Appointment Division of Gastroenterology in [place], [place] [address] [place] [phone] Derrick Cruz Jr., M.D., M.S. [address] [place] [phone] 08/11/2025 9:00 AM CDT Nurse Only Section of Infectious Diseases in [place], [place] [address] [place] [phone] Jessica Rousseau M.B.B.S. [address] [place] [phone] 08/11/2025 1:00 PM CDT Clinical Support Department of Palliative Care in [place], [place] [address] [place] [phone] Uma Aly APRN, C.N.P., M.S.N. [address] [place] [phone] 08/13/2025 10:00 AM CDT Lab Department of Laboratory Medicine and Pathology, [facility], in [place], [place] [address] [place] [phone] Jessica Rousseau M.B.B.S. [address] [place] [phone] 08/13/2025 10:30 AM CDT Office Visit Pedro [facility] in [place], [place] [address] [place] [phone] Jessica Rousseau M.B.B.S. [address] [place] [phone] 08/13/2025 11:00 AM CDT Nurse Only [facility] in [place], [place] [address] [place] [address] Jessica Rousseau M.B.B.S. [address] [place] [address] 08/13/2025 11:30 AM CDT Office Visit Pedro sanchez [facility] in [place], [place] [address] [place] [address] Jessica Rousseau M.B.B.S. [address] [place] [phone] 09/25/2025 10:30 AM STUDENT DEVELOPMENT DEAN Telemedicine [facility] Transplantation and Clinical Regeneration in [place], [place] [address] [place] [address] Jessica Rousseau M.B.B.S. [address] [place] [phone] documented as of this encounter Procedures Procedure [...] Total Score: 2 12/10/19 25 2:46 PM STUDENT DEVELOPMENT DEAN documented as of this encounter Care Teams Beam House Inspector Relationship Specialty Start Date End Date Renzo Andres M.D. [address] [place] [phone] PCP - General Family Medicine 04/25/23 documented as of this encounter
--- OUTSIDE RECORDS SUMMARY | 2025-06-07 11:45 | XMS_ITS | Encounter Summary ---
Author Organization [facility] Address [address] [place] [address] Care Team Providers Care Mortgage Closer Name Role Phone Renzo Andres M.D. Primary Care Provider [phone] Reason for Referral * Outpatient (Routine) - Closed Specialty Diagnoses / Procedures Referred By Estefania t Referred To Contact Diagnoses Transplant Stem Cell (HCC) Pain Pleuritic Chest Procedures ECG [address] EKG 12 LEAD W I&R Analia Carter APRN, C.N.P. [address] [place] [address] Phone: tel: fax: [facility] Referral ID Status Reason Start Date Expiration Date Visits Re quested Visits Authorized [id number] Closed 06/06/2025 09/06/2026 1 1 * Specialty Diagnoses / Procedures Referred By Contac t Referred To Contact [facility] [address] [place] [address] Phone: tel: [facility] Referral ID Status Reason Start Date Expiration Date Visits Re quested Visits Authorized Scheduling Instructions Please schedule on 06/07 at noon BW,Exam Reason for Visit * Outpatient (Routine) - Closed Specialty Diagnoses / Procedures Referred By Estefania acosta Referred To Contact Diagnoses Transplant Stem Cell (HCC) Pain Pleuritic Chest Procedures ECG [address] EKG 12 LEAD W I&R Analia Carter APRN, C.N.P. [address] [place] [address] Phone: tel: fax: [facility] Referral ID Status Reason Start Date Expiration Date Visits Re quested Visits Authorized [id number] Closed 06/06/2025 09/06/2026 1 1 Encounter Details Date Type Department Care Team (Latest Contact Info) Description 06/07/2025 11:45 AM CDT - 06/07/2025 11:59 PM CDT Hospital Encounter [facility], Ninth Floor [address] [place] [phone] Analia Carter APRN, C.N.P. 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 I have a [facility] place to live 05/28/2025 Education Answer Date Recorded What is the highest level of school you have completed or the highest degree you have received? Some college, no degree 04/24/2019 Comments No Sex and Gender Information Value Date Recorded Sex Assigned at Female 12/26/2018 8:37 PM PRESSURE STEAMER TENDER Legal Sex Female 2:43 PM PRESSURE STEAMER TENDER Gender Identity Female 12/26/2018 8:37 PM PRESSURE STEAMER TENDER Sexual Orientation Choose not to disclose 2020 3:46 PM CDT documented as of this encounter Last Filed Vital Signs Vital Sign Reading Time Taken Comments Blood Pressure 126/91 06/07/2025 11:53 AM CDT Pulse 95 06/07/2025 11:53 AM CDT Temperature - - Respiratory Rate 13 06/07/2025 11:53 AM CDT Oxygen Saturation 98% 06/07/2025 11:53 AM CDT Inhaled Oxygen Concentration - - Weight 99.8 kg (220 lb 0.3 oz) 06/07/2025 11:57 AM CDT Height - - Body Mass Index 33.45 05/28/2025 3:50 PM CDT documented in this encounter Medications at [...] mg total) by mouth daily. 120 capsule 04/29/2025 melatonin 5 mg tablet Take 5-10 [...] by mouth daily. 60 tablet 1 05/13/2025 budesonide (Entocort EC) [address] capsule Take 2 capsules (6 mg total) by mouth daily. 60 capsule 1 06/07/2025 5 buprenorphine (Butrans) 5 mcg/hourIndications :Chronic Pain/Nonacute Pain [...] (50 mg total) daily for 5 days. Please hold while on budesonide. 06/07/2025 5 prochlorperazine (Compazine) 10 mg tablet Take 1 tablet (10 mg total) by mouth every 6 (six) hours as needed for nausea. 30 tablet 1 05/20/2025 5 documented as of this encounter Progress Notes * Analia Carter, TIMBER MILL WORKER, C.N.P. - 06/07/2025 12:00 PM CDT SUBJECTIVE TRANSPLANT PHYSICIAN Dr. Jessica Rousseau, pager [phone]. HISTORY OF PRESENT ILLNESS Radha Martinez is a 35 y.o. female with a past medical history significant for CML who received a MUD HCT on 12/10/24. She is at [facility] today for the follow up. Day + 175 HISTORY OF PRESENT ILLNESS Please refer to multiple prior notes in EMR for complete hematologic history: Ms. Martinez is a 35 y.o. 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 At the time of diagnosis, there was grade 3 reticulin fibrosis noted. The cytogenetics identified a [place] chromosome in 20 metaphases. The BCR-ABL1 P [...] t(9;22) metaphases. 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 06/17/2024: feeling quite symptomatic since the [...] prophylaxis: Ursodiol 600 mg two times daily. [facility] ID Number: [id number] [...] done on 06/01. Biopsies negative for GVHD Interval History 06/07/2025 Ms. Martinez comes to the outpatient clinic on station 9-4 this afternoon for evaluation of sternalchest pain which radiates to her neck and epigastric region. She describes this as a pressure pain which is constant. She points to her midsternal area. She has been taking TUMs without relief. She has tried taking ibuprofen without benefit (she is also on Prednisone on 40 mg daily as of today). She denies fevers, chills, light headedness, dysphagia, mouth/throat pain, shortness of breat, palpitations, nausea/vomiting, abdominal pain , diarrhea, changes in her skin. She woke up with a mild headache this morning but notes this is better. When talking about her pain, I had her run through range of motion which did not reproduce pain. The Crowing Rooster test was positive with increased tightness and pressure of her sternal area. The pain is not reproducible regarding other range of motion testing. We discussed that prednisone and make one feel a bit antsy and like they want to crawl out of theirskin, and she said she feels like that and kind of like a bit of restless leg. She denies anxiety. EKG today is normal sinus rhythm, which it also had been in the ED early this week. She has had a recent EGD which did not show any abnormality, chest CT which did not reveal any PE, there was a bit of ground glass across the dependent portion of the lower lobes which can reflect an element of edema /atypical infection without associated atelectasis, no pleural fluid accumulation. She did have a positive crowing rooster sign with slight increase in discomfort across her sternum Differential - KS ruled out with cardiac work up in outside hospital, PE ruled out with chest CT from outside hospital. Gastric causes are less likely given negative EGD, patient is on Protonix 40 BID and utilizing TUMS without benefit. She was given a GI Cocktail here without any benefit. Costochondritis is not likely as prednisone and ibuprofen have not helped her pain. Other differential diagnosis include: anxiety, pericardial effusion, mitral valve disorder - an echocardiogram has been ordered for the first available. Will have her hold Prednisone (she had just decreased to 40 mg daily - decreasing 10 mg every week.We will start her on Budesonide 6 mg daily to hopefully help with the nausea that she was having quite significantly and see if this helps with her nausea as well as decreases the chest pressure (possibly anxiety). Will obtain echocardiogram - first available. Will be looking for any abnormality but also pericardial effusion. REVIEW OF SYSTEMS a 10 point ROS was performed and negative with the exception of notation above. Current Outpatient Medications Medication Instructions acyclovir (ZOVIRAX) 400 mg, oral, 2 times daily ARIPiprazole (ABILIFY) 10 mg, oral, Daily, Dose change 12/02/2024 budesonide (ENTOCORT EC) 6 mg, oral, Daily buprenorphine (Butrans) 5 mcg/hour 1 patch, transdermal, [...] (50 mg total) daily for 5 days. Please hold while on budesonide. prochlorperazine (COMPAZINE) 10 mg, oral, Every 6 hours PRN sulfamethoxazole-trimethoprim (Bactrim) 400-80 mg per tablet 1 tablet, oral, Daily OBJECTIVE VITAL SIGNS BP (!) 126/91 (BP Location: Right arm;Upper, Patient Position: Semi-recumbent) Pulse 95 Resp 13 Wt 99.8 kg SpO2 98% BMI 33.45 kg/m?? PHYSICAL EXAMINATION Physical Exam General: Patient is alert, oriented, and in no acute distress. Vitals as noted. Skin: No rash or bruising. Head: Atraumatic. Eyes: Anicteric, ENT: No mucositis or thrush. Heart: Regular rate and rhythm. Lungs: Clear bilaterally. Abdomen: Soft, nontender, nondistended with normal active bowel sounds. Extremities: No peripheral edema, cyanosis, or pallor. Musculoskeletal: Full range of motion without pain. Crowing Rooster maneuver with mild sternal discomfort. Pain not able to be reproduced with palpitations of sternum, or epigastric region. KPS: 90% DIAGNOSTICS I have reviewed the recent relevant Diagnostics Recent Results (from the past 24 hours) CBC no call back, reflex T/S HGB <8 Collection Time: 06/07/25 12:12 PM Result Value Hemoglobin 11.5 (L) Hematocrit 36.3 Erythrocytes 4.28 MCV 84.8 RBC Distrib Width 13.5 Platelet Count 152 (L) Leukocytes 3.2 (L) Neutrophils 2.33 Lymphocytes 0.61 (L) Monocytes 0.20 (L) Eosinophils 0.07 Basophils <0.03 Comprehensive Metabolic Panel Collection Time: 06/07/25 12:12 PM Result Value Potassium, S 4.3 Sodium, S 139 Chloride, S 103 Bicarbonate, S 22 Anion Gap 14 BUN (Blood Urea Nitrogen), S 9 Creatinine 0.87 Estimated GFR (eGFR) 88 Calcium, Total, S 9.3 Glucose, S 188 (H) Protein, Total, S 6.4 Albumin, S 4.0 Aspartate Aminotransferase (AST), S 39 Alkaline Phosphatase, S 79 Alanine Aminotransferase (ALT), S 48 (H) Bilirubin, Total, S 0.3 Magnesium Collection Time: 06/07/25 12:12 PM Result Value Magnesium, S 2.2 Troponin T, 5th Generation Collection Time: 06/07/25 12:12 PM Result Value Troponin T, 5th gen <6 NT-Pro B-Type Natriuretic Peptide (BNP) Collection Time: 06/07/25 12:12 PM Result Value NT-Pro BNP <36 C-Reactive Protein, High Sensitivity Collection Time: 06/07/25 12:12 PM Result Value C-Reactive Protein, High Sens, S 3.9 (H) ASSESSMENT / PLAN Plan: Echocardiogram - first available Hold prednisone and start Budesonide 6 mg daily (monitor chest pressure as well as nausea/vomiting) 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 [id number]% donor DNA and approximately 0% recipient DNA. [...] will request CT chest to r/o PE -06/07/[address] was negative for PE. She continues with chest pressure/pain. 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 Wears glasses. - Followed by [facility] in [place], [place]. - Patient will notify team if any vision changes. # Blood Products # TACO - Requires infusion of platelets at a slower rate # Disposition - Echocardiogram First available -06/10/25 IFD appointment for immunizations -06/15/25 Bone marrow biopsy - 06/25/25 appointments on [place] [id number] documented in this encounter Plan of Treatment Upcoming Encounters Date Type Department Care Team (Late st Contact Info) Description 07/21/2025 11:00 AM CDT Telemedicine Department of Palliative Care in [place], [place] [address] [place] [phone] Meghan Osorio M.D. [address] [place] [phone] 07/22/2025 8:40 AM CDT Lab Department of Laboratory Medicine and Pathology, [place], in [place], [place] [address] [place] [phone] Becky Hernandez APRN, C.N.P., D.N.P. [address] [place] [phone] 07/22/2025 9:30 AM CDT Office Visit Pedro Aravind [facility] in [place], [place] [address] [place] [phone] Becky Hernandez APRN, C.N.P., D.N.P. [address] [place] [phone] 07/30/2025 2:00 PM CDT Appointment Division of Gastroenterology in [place], [place] [address] [place] [phone] Derrick Cruz Jr., M.D., M.S. [address] [place] [phone] 08/11/2025 9:00 AM CDT Nurse Only Section of Infectious Diseases in [place], [place] [address] [place] [phone] Jessica Rousseau M.B.B.S. [address] [place] [phone] 08/11/2025 1:00 PM CDT Clinical Support Department of Palliative Care in [place], [place] [address] [place] [phone] Uma Aly APRN, Satnam.N.P., M.S.N. [address] [place] [phone] 08/13/2025 10:00 AM CDT Lab Department of Laboratory Medicine and Pathology, [facility], in [place], [place] [address] [place] [phone] Jessica Rousseau M.B.B.S. [address] [place] [phone] 08/13/2025 10:30 AM CDT [facility] in [place], [place] [address] [place] [phone] Jessica Rousseau M.B.B.S. [address] [place] [phone] 08/13/2025 11:00 AM CDT [facility] in [place], [place] [address] [place] [phone] Jessica Rousseau M.B.B.S. [address] [place] [phone] 08/13/2025 11:30 AM CDT [facility] in [place], [place] [address] [place] [address] Jessica Rousseau M.B.B.S. [address] [place] [phone] 09/25/2025 10:30 AM PRESSURE STEAMER TENDER Telemedicine Pedro [facility] in [place], [place] [address] [place] [phone] Jessica Rousseau M.B.B.S. [address] [place] [phone] Scheduled Referrals Name Type Priority Associated Diagnoses Order Schedule Hydration Infusion Therapy; Outpatient Referral Routine Once for 1 Occurrences starting 06/07/2025 until 06/07/2025 documented as of this encounter Procedures Procedure Name Priority Date/Time Associated Diagnosis Comments ECG Routine 06/07/2025 12:15 PM CDT Transplant Stem Cell (HCC) Pain Pleuritic Chest CBC NO CALL BACK, REFLEX T/S Routine 06/07/2025 12:12 PM CDT Transplant Stem Cell (HCC) NT-PRO B-TYPE NATRIURETIC PEPTIDE (BNP), S Routine 06/07/2025 12:12 PM CDT Transplant Stem Cell (HCC) Pain Pleuritic Chest C-REACTIVE PROTEIN, HIGH SENSITIVITY, S/P Routine 06/07/2025 12:12 PM CDT Transplant Stem Cell (HCC) Pain Pleuritic Chest TROPONIN T, 5TH GEN, P Routine 12:12 PM CDT Transplant Stem Cell (HCC) Pain Pleuritic Chest MAGNESIUM, S Routine 06/07/2025 12:12 PM CDT Transplant Stem Cell (HCC) COMPREHENSIVE METABOLIC PANEL, S/P Routine 06/07/2025 12:12 PM CDT Transplant Stem Cell (HCC) documented in this encounter Results * ECG 12 Lead (06/07/2025 12:15 PM CDT) Ventricular Rate ECG/Min [address] Interval 172 ms MUSE QRSD Interval 78 ms MUSE QT Interval 350 ms MUSE QTC Interval 418 ms MUSE P [place] 55 degrees MUSE R [place] 11 degrees MUSE T Wave [place] 38 degrees MUSE 06/07/2025 12:1 5 PM CDT 06/07/2025 12:17 PM CDT Impressions MUSE - 06/07/2025 12:17 PM CDT Normal sinus rhythm Normal ECG When compared with ECG of 05-Nov-2024 14:39, No significant change was found Reviewed by LEONEL Alamo Narrative Procedure Note Rigo Escobar M.D. - 06/07/2025 IMPRESSION: Normal sinus rhythm Normal ECG When compared with ECG of 05-Nov-2024 14:39, No significant change was found Reviewed by LEONEL Alamo Analia Gamez APRN, C.N.P. ECG ORDER JNAES Final Result Performing Organization Address City/[facility]/ZIP Co de Phone Number MUSE NA * (ABNORMAL) C-Reactive Protein, High Sensitivity (06/07/2025 12:12 PM CDT) C-Reactive Protein, High Sens, S 3.9(H) <2.0 mg/L 06/07/2025 2:36 PM CDT DTL Comment: Elevated C-reactive protein (>=2.0 mg/L) is a risk factor for cardiovascular disease. Clinician-patient discussion of therapeutic strategy is warranted. Blood (Blood, Venous) 06/07/2025 12:12 PM CDT 06/07/2025 12:19 PM CDT Analia Gamez APRN, C.N.P. LAB BLOOD ADD-ON Final Result Performing Organization Address City/[facility]/ZIP Co de Phone Number [facility] [address] [place] [address], [place] DTL [facility] [address] [place] [address] * NT-Pro B-Type Natriuretic Peptide (BNP) (06/07/2025 12:12 PM CDT) NT-Pro BNP <36 <160 pg/mL 06/07/2025 2:36 PM CDT DTL Comment: NT-proBNP values less than 300 pg/mL have a 99% negative predictive value for excluding acute congestive heart failure. A cutoff of 1200 pg/mL for patients with an eGFR<60 yields a diagnostic sensitivity and specificity of 89% and 72% for acute congestive heart failure. NT-proBNP values greater than 450 pg/mL are consistent with CHF in adults under 50 years of age. Blood (Blood, Venous) 06/07/2025 12:12 PM CDT 06/07/2025 12:19 PM CDT Analia Gamez APRN, C.N.P. LAB BLOOD ADD-ON Final Result [facility] [address] [place] [id number] * Troponin T, 5th Generation (06/07/2025 12:12 PM CDT) Troponin T, 5th gen <6 <=10 ng/L 06/07/2025 1:04 PM CDT DTL Blood (Blood, Venous) 06/07/2025 12:12 PM CDT 06/07/2025 12:19 PM CDT Analia Gamez APRN, C.N.P. LAB BLOOD ADD-ON Final Result Performing Organization Address City/[facility]/ZIP Co de Phone Number [facility] [address] [place] [address] * Magnesium (06/07/2025 12:12 PM CDT) Magnesium, S 2.2 1.7 - 2.3 mg/dL 06/07/2025 2:36 PM CDT DTL Blood (Blood, Venous) 06/07/2025 12:12 PM CDT 06/07/2025 12:19 PM CDT Analia Gamez APRN, C.N.P. LAB BLOOD ADD-ON Final Result [facility] [address] [place] [address] * (ABNORMAL) Comprehensive Metabolic Panel (06/07/2025 12:12 PM CDT) Potassium, S 4.3 3.6 - 5.2 mmol/L 06/07/2025 2:36 PM CDT DTL Sodium, S 139 135 - 145 mmol/L 06/07/2025 2:36 PM CDT DTL Chloride, S 103 98 - 107 mmol/L 06/07/2025 2:36 PM CDT DTL Bicarbonate, S 22 22 - 29 mmol/L 06/07/2025 2:36 PM CDT DTL Anion Gap 14 7 - 15 06/07/2025 2:36 PM CDT DTL BUN (Blood Urea Nitrogen), S 9 6 - 21 mg/dL 06/07/2025 2:36 PM CDT DTL Creatinine 0.87 0.59 - 1.04 mg/dL 06/07/2025 2:36 PM CDT DTL Estimated GFR (eGFR) 88 >=60 mL/min/BS A 06/07/2025 2:36 PM CDT DTL Comment: Estimated GFR calculated using the 2020 CKD_EPI creatinine equation. Calcium, Total, S 9.3 8.6 - 10.0 mg/dL 06/07/2025 2:36 PM CDT DTL Glucose, S 188(H) 70 - 140 mg/dL 06/07/2025 2:36 PM CDT DTL Protein, Total, S 6.4 6.3 - 7.9 g/dL 06/07/2025 2:36 PM CDT DTL Albumin, S 4.0 3.5 - 5.0 g/dL 06/07/2025 2:36 PM CDT DTL Aspartate Aminotransferase (AST), S 39 8 - 43 U/L 06/07/2025 2:36 PM CDT DTL Alkaline Phosphatase, S 79 35 - 104 U/L 06/07/2025 2:36 PM CDT DTL Alanine Aminotransferase (ALT), S 48(H) 7 - 45 U/L 06/07/2025 2:36 PM CDT DTL Bilirubin, Total, S 0.3 0.0 - 1.2 mg/dL 06/07/2025 2:36 PM CDT DTL Blood (Blood, Venous) 06/07/2025 12:12 PM CDT 06/07/2025 12:19 PM CDT Analia Gamez APRN, C.N.P. LAB BLOOD ADD-ON Final Result [facility] [address] [place] [address], [place] D[place] [facility] [address] [place] [address] * (ABNORMAL) CBC no call back, reflex T/S HGB <8 (06/07/2025 12:12 PM CDT) Hemoglobin 11.5(L) 11.6 - 15.0 g/dL 06/07/2025 12:25 PM CDT DTL Hematocrit 36.3 35.5 - 44.9 % 06/07/2025 12:25 PM CDT DTL Erythrocytes 4.28 3.92 - 5.13 x10(12)/L 06/07/2025 12:25 PM CDT DTL MCV 84.8 78.2 - 97.9 fL 06/07/2025 12:25 PM CDT DTL RBC Distrib Width 13.5 12.2 - 16.1 % 06/07/2025 12:25 PM CDT DTL Platelet Count 152(L) 157 - 371 x10(9)/L 06/07/2025 12:25 PM CDT DTL Leukocytes 3.2(L) 3.4 - 9.6 x10(9)/L 06/07/2025 12:25 PM CDT DTL Neutrophils 2.33 1.56 - 6.45 x10(9)/L 06/07/2025 12:25 PM CDT DHPM Lymphocytes 0.61(L) 0.95 - 3.07 x10(9)/L 06/07/2025 12:25 PM CDT DTL Monocytes 0.20(L) 0.26 - 0.81 x10(9)/L 06/07/2025 12:25 PM CDT DTL Eosinophils 0.07 0.03 - 0.48 x10(9)/L 06/07/2025 12:25 PM CDT DTL Basophils <0.03 0.01 - 0.08 x10(9)/L 06/07/2025 12:25 PM CDT DTL Blood (Blood, Venous) 06/07/2025 12:12 PM CDT 06/07/2025 12:19 PM CDT Analia Day Basimnicola Gamez APRN, C.N.P. 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) documented in this encounter Administered Medications Inactive Administered Medications - up to 3 most recent administrations Medication Order MAR Action Action Date Dose Rate Site lidocaine viscous 2 % 15 mL, alum-mag hydroxide-simeth 30 mL suspension 45 mL, oral, Once, On 06/07/25 at 1315, For 1 dose, Mix ingredients prior to administration Given 06/07/2025 1:20 PM CDT 45 mL documented in this encounter Additional Health Concerns Infection Onset Date Last Indicated Resolved Time Protective Environment 03/02/2023 03/02/2023 Assessment Noted Time PHQ-9 Depression Total Score: 2 12/10/19 2:46 PM PRESSURE STEAMER TENDER documented as of this encounter Care Teams Mortgage Closer Relationship Specialty Start Date End Date Renzo Andres M.D. [address] [place] [address] [place] [address] PCP - General Family Medicine 04/25/23 documented as of this encounter
--- OUTSIDE RECORDS SUMMARY | 2025-06-08 13:15 | XMS_ITS | Encounter Summary ---
Author Organization [facility] Address [address] [place] [phone] Care Team Providers Care Processing Assistant Name Role Phone Renzo Andres M.D. Primary Care Provider [phone] Reason for Visit * Outpatient (Routine) - Closed Specialty Diagnoses / Procedures Referred By Estefania acosta Referred To Contact Infectious Diseases Diagnoses 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) Transplant Stem Cell (HCC) Procedures Infectious Diseases - BMT econsult Arlen James APRN, C.N.P., D.N.P. [address] [place] [phone] Phone: tel: fax: [facility] Referral ID Status Reason Start Date Expiration Date Visits Re quested Visits Authorized [id number] Closed 06/05/2025 09/05/2026 1 1 Encounter Details Date Type Department Care Team (Late st Contact Info) Description 06/08/2025 1:15 PM CDT Internal E-Consult Section of Infectious Diseases in [place], [place] [address] [place] [phone] Arlen James APRN, C.N.P., D.N.P. [address] [place] [phone] Vanessa Segura P.A.-C. [address] [place] [address] Leukemia Myeloid Chronic BCR/ABL Positive Not Having [...] Sex Assigned at Female 12/26/2018 8:37 PM DIRECT MARKETING EXECUTIVE Legal Sex Female 2:43 PM DIRECT MARKETING EXECUTIVE Gender Identity Female 12/26/2018 8:37 PM DIRECT MARKETING EXECUTIVE Sexual Orientation Choose not to disclose 2020 [...] transplant 12/10/2024. Tacrolimus for GVHD prophylaxis was vnugagxahzge55/30/2025. She was recently started on budesonide and [...] CDT Telemedicine Department of Palliative Care in [place], [place] [address] [place] [phone] Meghan Osorio M.D. [address] [place] [phone] 07/22/2025 8:40 AM CDT Lab Department of Laboratory Medicine and Pathology, [facility], in [place], [place] [address] [place] [phone] Becky Hernandez APRN, C.N.P., D.N.P. [address] [place] [phone] 07/22/2025 9:30 AM CDT Office Visit Pedro sanchez [facility] in [place], [place] [address] [place] [address] Becky Hernandez APRN, C.NLuigi., D.N.P. [address] [place] [phone] 07/30/2025 2:00 PM CDT Appointment Division of Gastroenterology in [place], [place] [address] [place] [phone] Derrick Cruz Jr., M.D., M.S. [address] [place] [phone] 08/11/2025 9:00 AM CDT Nurse Only Section of Infectious Diseases in [place], [place] [address] [place] [address] Jessica Rousseau M.B.B.S. [address] [place] [phone] 08/11/2025 1:00 PM CDT Clinical Support Department of Palliative Care in [place], [place] [address] [place] [phone] Uma Aly APRN, C.NLuigi., M.S.N. [address] [place] [phone] 08/13/2025 10:00 AM CDT Lab Department of Laboratory Medicine and Pathology, [facility], in [place], [place] [address] [place] [address] Jessica Rousseau M.B.B.S. [address] [place] [phone] 08/13/2025 10:30 AM CDT [facility] [place], [place] [address] [place] [address] Jessica Rousseau M.B.B.S. [address] [place] [address] 08/13/2025 11:00 AM CDT Nurse Only [facility] Transplantation [facility] Clinical Regeneration in [place], [place] [address] [place] [address] Jessica Rousseau M.B.B.S. [address] [place] [phone] 08/13/2025 11:30 AM CDT [facility] in [place], [place] [address] [place] [address] Jessica Rousseau M.B.B.S. [address] [place] [phone] 09/25/2025 10:30 AM DIRECT MARKETING EXECUTIVE Telemedicine [facility] Transplantation [facility] Clinical Regeneration in [place], [place] [address] [place] [address] Jessica Rousseau M.B.B.S. [address] [place] [address] documented as of this encounter Visit Diagnoses Diagnosis Leukemia Myeloid Chronic BCR/ABL Positive Not Having Achieved Remission (HCC) Transplant Stem Cell (HCC) documented in this encounter Additional Health Concerns Infection Onset Date Last Indicated Resolved Time Protective Environment 03/02/2023 03/02/2023 Assessment Noted Time PHQ-9 Depression Total Score: 2 12/10/19 25 2:46 PM DIRECT MARKETING EXECUTIVE documented as of this encounter Care Teams Processing Assistant Relationship Specialty Start Date End Date Renzo Andres M.D. [address] [place], [place] [address] [phone] PCP - General Family Medicine 04/25/23 documented as of this encounter
--- OUTSIDE RECORDS SUMMARY | 2025-06-10 12:45 | XMS_ITS | Encounter Summary ---
Author Organization [facility] Address [address] [place] [address] Care Team Providers Care Lead Burner Supervisor Name Role Phone Renzo Andres M.D. Primary Care Provider Encounter Details Date Type Department Care Team (Late st Contact Info) Description 06/10/2025 12:45 PM CDT Patient [facility] in [place], [place] [address] [place] [address] Ta Medrano Social History Tobacco Use Types Packs/Day Years Used Date Smoking Tobacco: Never Smokeless Tobacco: Never Alcohol Use Standard Drinks/Week Comments Yes 0 (1 standard drink = 0.6 oz pur e alcohol) social C Utilities Answer Date Recorded In the past 12 months has e [employer], gas, oil, or water [employer] threatened to shut off services in [...] your living situation today? I have a [facility] place to live 05/28/2025 Education Answer Date Recorded What is the highest level of school you have completed or the highest degree you have received? Some college, no degree 04/24/2019 Comments No Sex and Gender Information Value Date Recorded Sex Assigned at Female 12/26/2018 8:37 PM BARGEMAN Legal Sex Female 2:43 PM BARGEMAN Gender Identity Female 12/26/2018 8:37 PM BARGEMAN Sexual Orientation Choose not to disclose 2020 [...] the patient navigation team with any questions. [facility] [phone]. documented in this encounter Plan of Treatment Upcoming Encounters Date Type Department Care Team (Late st Contact Info) Description 07/21/2025 11:00 AM CDT Telemedicine Department of Palliative Care in [place], [place] [address] [place] [phone] Meghan Osorio M.D. [address] [place] [phone] 07/22/2025 8:40 AM CDT Lab Department of Laboratory Medicine and Pathology, [facility] in [place], [place] [address] [place] [address] Becky Hernandez APRN, C.N.P., D.N.P. [address] [place] [phone] 07/22/2025 9:30 AM CDT Office Visit [facility] for Transplantation and Clinical Regeneration in [place], [place] [address] [place] [address] Becky Hernandez APRN, C.N.P., D.N.P. [address] [place] [phone] 07/30/2025 2:00 PM CDT Appointment Division of Gastroenterology in [place], [place] [address] [place] [phone] Derrick Cruz Jr., M.D., M.S. [address] [place] [phone] 08/11/2025 9:00 AM CDT Nurse Only Section of Infectious Diseases in [place], [place] [address] [place] [phone] Jessica Rousseau M.B.B.S. [address] [place] [phone] 08/11/2025 1:00 PM CDT Clinical Support Department of Palliative Care in [place], [place] [address] [place] [address] Uma Aly APRN, C.N.P., M.S.N. [address] [place] [phone] 08/13/2025 10:00 AM CDT Lab Department of Laboratory Medicine and Pathology, [facility] in [place], [place] [address] [place] [address] Jessica Rousseau M.B.B.S. [address] [place] [phone] 08/13/2025 10:30 AM CDT Office Visit Pedro Lanza laura [facility] for Transplantation and Clinical Regeneration in [place], [place] [address] [place] [address] Jessica Rousseau M.B.B.S. [address] [place] [phone] 08/13/2025 11:00 AM CDT [facility] in [place], [place] [address] [place] [address] Jessica Rousseau M.B.B.S. [address] [place] [phone] 08/13/2025 11:30 AM CDT [facility] in [place], [place] [address] [place] [address] Jessica Rousseau M.B.B.S. [address] [place] [phone] 09/25/2025 10:30 AM BARGEMAN Telemedicine [facility] in [place], [place] [address] [place] [address] Jessica Rousseau M.B.B.S. [address] [place] [address] documented as of this encounter Visit Diagnoses Not on filedocumented in this encounter Additional Health Concerns Infection Onset Date Last Indicated Resolved Time Protective Environment 03/02/2023 03/02/2023 Assessment Noted Time PHQ-9 Depression Total Score: 2 12/10/19 25 2:46 PM BARGEMAN documented as of this encounter Care Teams Lead Burner Supervisor Relationship Specialty Start Date End Date Renzo Andres M.D. [address] [place] [phone] PCP - General Family Medicine 04/25/23 documented as of this encounter
--- OUTSIDE RECORDS SUMMARY | 2025-06-10 13:20 | XMS_ITS | Encounter Summary ---
Author Organization [facility] Address [address] [place] [address] Care Team Providers Care Exotic Dancer Name Role Phone Renzo Andres M.D. Primary Care Provider Reason for Visit * Reason Comments Immunizations Encounter Details Date Type Department Care Team (Late st Contact Info) Description 06/10/2025 1:20 PM CDT Nurse Only Section of Infectious Diseases in [place], [place] [address] [place] [phone] Jessica Rousseau M.B.B.S. [address] [place] [phone] Carolyn Gardner RKatalinaNKatalina [address] [place] [phone] Immunizations Social History Tobacco Use Types Packs/Day Years [...] your living situation today? I have a [facility] place to live 05/28/2025 Education Answer Date Recorded What is the highest level of school you have completed or the highest degree you have received? Some college, no degree 04/24/2019 Comments No Sex and Gender Information Value Date Recorded Sex Assigned at Female 12/26/2018 8:37 PM ARMATURE REWINDER Legal Sex Female 2:43 PM ARMATURE REWINDER Gender Identity Female 12/26/2018 8:37 PM ARMATURE REWINDER Sexual Orientation Choose not to disclose 2020 3:46 PM CDT documented as of this encounter Progress Notes * Carolyn Gardner R.N. - 06/10/2025 1:20 PM CDT PROC IMM Visit 06/10/2025 Pt Type: Post SCT Date of Transplant: 12/10/2024 (182 days) Visit # 1 Patient arrived for the following vaccination: Hepatitis A #1 of 2, Heplisav-B #1 of 2, MenQuadfi #1 of 2, PCV20, Shingrix #1 of 2, Pentacel #1 of3 Vaccines were administered. Patient had no further questions or concerns. Patient was dismissed from the appointment showing no signs of distress. Next Visit Due on or after: 2 Months or more, from 06/10/2025 Vaccines Ordered: SCT Visit #2 Pended to Provider: JAYNA Godoy Patient's Plan for Future Vaccination Visits: Return to [facility] If questions, contact your Hematology team. Additional Notes: Radha declines Covid and HPV vaccines. documented in this encounter Plan of Treatment Upcoming Encounters Date Type Department Care Team (Late st Contact Info) Description 07/21/2025 11:00 AM CDT Telemedicine Department of Palliative Care in [place], [place] [address] [place] [phone] Meghan Osorio M.D. [address] [place] [phone] 07/22/2025 8:40 AM CDT Lab Department of Laboratory Medicine and Pathology, [facility] in [place], [place] [address] [place] [phone] Becky Hernandez APRN, C.N.P., D.N.P. [address] [place] [phone] 07/22/2025 9:30 AM CDT [facility] in [place], [place] [address] [place] [phone] Becky Hernandez APRN, C.N.P., D.N.P. [address] [place] [phone] 07/30/2025 2:00 PM CDT Appointment Division of Gastroenterology in [place], [place] [address] [place] [phone] Derrick Cruz Jr., M.D., M.S. [address] [place] [phone] 08/11/2025 9:00 AM CDT Nurse Only Section of Infectious Diseases in [place], [place] [address] [place] [phone] Jessica Rousseau M.B.B.S. [address] [place] [phone] 08/11/2025 1:00 PM CDT Clinical Support Department of Palliative Care in [place], [place] [address] [place] [phone] Uma Aly APRN, C.N.P., M.S.N. [address] [place] [phone] 08/13/2025 10:00 AM CDT Lab Department of Laboratory Medicine and Pathology, [facility], in [place], [place] [address] [place] [phone] Jessica Rousseau M.B.B.S. [address] [place] [phone] 08/13/2025 10:30 AM CDT Office Visit Pedro Fatima [facility] for Transplantation and Clinical Regeneration in [place], [place] [address] [place] [phone] Jessica Rousseau M.B.B.S. [address] [place] [phone] 08/13/2025 11:00 AM CDT Nurse Only [facility] in [place], [place] [address] [place] [address] Jessica Rousseau M.B.B.S. [address] [place] [phone] 08/13/2025 11:30 AM CDT [facility] in [place], [place] [address] [place] [address] Jessica Rousseau M.B.B.S. [address] [place] [phone] 09/25/2025 10:30 AM ARMATURE REWINDER Telemedicine [facility] Transplantation and Clinical Regeneration in [place], [place] [address] [place] [address] Jessica Rousseau M.B.B.S. [address] [place] [phone] documented as of this encounter Visit Diagnoses Diagnosis Need Vaccine Immunization- Primary documented in this encounter Additional Health Concerns Infection Onset Date Last Indicated Resolved Time Protective Environment 03/02/2023 03/02/2023 Assessment Noted Time PHQ-9 Depression Total Score: 2 12/10/19 25 2:46 PM ARMATURE REWINDER documented as of this encounter Care Teams Exotic Dancer Relationship Specialty Start Date End Date Renzo Andres M.D. [address] [place] [phone] PCP - General Family Medicine 04/25/23 documented as of this encounter
--- OUTSIDE RECORDS SUMMARY | 2025-06-12 16:28 | XMS_ITS | Encounter Summary ---
Author Organization [facility] Address [address] [place] [address] Care Team Providers Care Acds Block 1 Operator Name Role Phone Renzo Andres M.D. Primary Care Provider Encounter Details Date Type Department Care Team (Latest Contact Info) Description 06/12/2025 4:28 PM CDT - 06/13/2025 5:22 PM CDT Hospital Encounter [facility], Tenth Floor [address] [place] [address] Mallory Sharif M.D. [address] [place] [phone] Carlos Lawton M.D. [address] [place] [phone] Discharge Disposition: Home or Self Care Social [...] daily living? No 06/12/2025 [facility] Utilities Answer Date Recorded In the past 12 months has th e electric, gas, oil, or water company threatened to shut off services in your home? No 06/12/2025 Depression Answer Date Recor ded PHQ-9 Total Score (max 27) 2 12/10 Housing Stability Answer Date Recorded What is your living situation today? I have a [facility] place to live 06/12/2025 Education Answer Date Recorded What is the highest level of school you have completed or the highest degree you have received? Some college, no degree 04/24/2019 Comments No Sex and Gender Information Value Date Recorded Sex Assigned at Female 12/26/2018 8:37 PM BEHAVIOR SPECIALIST Legal Sex Female 2:43 PM BEHAVIOR SPECIALIST Gender Identity Female 12/26/2018 8:37 PM BEHAVIOR SPECIALIST Sexual Orientation Choose not to disclose [...] this encounter Discharge Summaries * Analia Carter, EXCHANGE ADMINISTRATOR, C.N.P. - 06/13/2025 2:42 PM CDT DISCHARGE SUMMARY BRIEF OVERVIEW Hospital: [facility] Discharge Provider: Mallory Sharif M.D. Primary Team: [facility] Primary Care Providers: Renzo Andres M.D. (General) [address] [place] [phone] Primary Care Provider Primary Care Provider Other [...] ABREU Laboratory Medicine 06/15/2025 9:45 AM ROOM [place] [address] [place] 7[address] Procedural 06/15/2025 2:00 PM TXP [...] ADMISSION Abdominal Pain HOSPITAL COURSE Ms. Radha Martniez is a 35 yo female with a [...] through Care Everywhere. * Acetaminophen (By mouth) (Nigerien) * Diphenhydramine (By mouth) (Nigerien) * Laxative, Stool Softeners (By mouth) (Nigerien) * Ibuprofen (By mouth) (Nigerien) * Laxative, Stimulant (By mouth) (Nigerien) documented in this encounter Medications at Time [...] Take 5-10 mg by mouth at bedtime. ondansetron ODT [...] Pain/Nonacute Pain. 4 patch 05/25/2025 06/19/20 25 diphenhydrAMINE (BenadryL) 25 mg capsule Take 1 capsule (25 mg total) by mouth every 6 (six) hours as needed for itching. 06/13/2025 07/06/20 25 docusate sodium (Colace) 100 mg capsule Take 1 capsule (100 mg total) by mouth 2 (two) times a day. 06/13/2025 06/23/20 25 HYDROmorphone (Dilaudid) 1 mg/mL liquidIndications:C hronic Pain/Nonacute Pain Take 0.5 mL (0.5 mg total) by mouth daily as needed for pain Indication: Chronic Pain/Nonacute Pain. 10 mL 05/13/2025 06/27/20 25 ibuprofen 400 mg tablet Take 1 tablet (400 mg total) by mouth every 6 (six) hours as needed for moderate pain or score 4-6 of 10. 06/13/2025 07/06/20 25 loperamide (Imodium A-D) 2 mg capsule Take 1 capsule (2 mg total) by mouth every 2 (two) hours as needed for diarrhea. Take with occurrence of diarrhea. May take up to 16 mg, or 8 doses daily. 05/17/2025 07/06/20 25 pantoprazole (Protonix) 40 mg EC tablet Take 1 tablet (40 mg total) by mouth 2 (two) times a day before morning and evening meals. 60 tablet 1 05/29/2025 4:28 PM CDT 05/29/2025 06/23/20 25 posaconazole (NoxafiL) [address] tabletIndications:L eukemia Myeloid Chronic BCR/ABL Positive Remission (HCC),Transplant Bone Marrow Allogeneic (HCC) Take 3 tablets (300 mg total) by mouth daily. 90 tablet 06/13/2025 07/16/20 25 predniSONE (Deltasone) 10 mg tablet Take [...] day as needed for constipation. 06/13/2025 06/23/20 documented as of this encounter Progress Notes [...] donor DNA and approximately 40% recipient DNA. [id number]% donor DNA and approximately 0% recipient DNA. [...] had just started 40 mg daily today 19395) - monitor if chest pressure improves (this may also help the slight increase in ALT). * Echocardiogram - first evaluable to assess for pericardial effusion - 06/12/2025: Patient reports she was unable to burr picker Budesonide due to pharmacy availability, butshe [...] right eye. Wears glasses. - Followed by [facility] in [place], [place]. - Patient will notify team if any vision changes. # Blood Products # TACO - Requires infusion of platelets at a slower rate # Disposition - Ms. Radha Martinez will be discharged to home in stable condition. documented in this encounter H&P Notes * Jurgen Alexis, Pharm.D., M.S., R.Ph., [facility] - 06/13/2025 7:31 AM CDT 35 y.o. [...] SUBJECTIVE TRANSPLANT PHYSICIAN Dr. Jessica Rousseau, pager [phone]. CHIEF COMPLAINT Radha Martinez is a 35 [...] reticulin fibrosis noted. The cytogenetics identified a Thomas chromosome in 20 metaphases. The BCR- ABL1 [...] t(9;22) metaphases. 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 06/17/2024: feeling quite symptomatic since the [...] 06/12/25 1654 06/12/25 1655 06/12/25 1656 06/12/25 165 BP: (!) 141/92 BP Location: Left arm;Upper [...] donor DNA and approximately 40% recipient DNA. [id number]% donor DNA and approximately 0% recipient DNA. [...] had just started 40 mg daily today [address]) - monitor if chest pressure improves (this may also help the slight increase in ALT). * Echocardiogram - first evaluable to assess for pericardial effusion - 06/12/2025: Patient reports she was unable to burr picker Budesonide due to pharmacy availability, butshe [...] right eye. Wears glasses. - Followed by [facility] in [place], [place]. - Patient will notify team if [...] [place]; Surgeon: Brianna Hernandez M.D., Ph.D.; Location: [facility] OR documented in this encounter Consult [...] 101 kg (06/12/2025) Current Weight: 101 kg [place] Body Weight (Calculated) : 63.9 kg BMI [...] Accumulation: Absent Estimated Needs: Total Calorie Needs: 6064-0008 calories/day Method to Estimate Energy Needs: [place]-St Jeor ( kcal/kg) Weight Used for Equation [...] about patient's nutritional care please contact pager [phone] on weekdays 07:30-16:00 or [phone] on weekends/holidays ([facility]) [phone]. [1] Past Medical History: Diagnosis Date Amblyopia Bilateral Anemia Anxiety Generalized Disorder Depressive Disorder Fibromyalgia 2020 Headache Unspecified Irritable Bowel Syndrome, Unspecified 2016 Leukemia Migraine Headache Other Injury Of Unspecified Body Region Strabismus [2] Past Surgical History: Procedure Laterality Date EYE SURGERY Right 1989 INSERTION CENTRAL VENOUS LINE N/A 12/03/2024 Procedure: INSERTION CENTRAL VENOUS LINE, [place]; Surgeon: Brianna Hernandez M.D., Ph.D.; Location: [facility] [3] Allergies Allergen Reactions Oxycodone GI intolerance Severe nausea Bupropion Edema (Reselect Reaction) Grapefruit Other (see comments) Drug-drug interaction with Bosulif (bosutinib); This had also been noted w/ prior therapy which patient is no longer taking (Tasigna (nilotinib)). [4] Current Facility-Administered Medications: acetaminophen tablet 650 mg (TylenoL), 650 mg, oral, Q4H PRN, SolAlok pires APRN, C.N.P., D.N.P. acyclovir tablet 400 mg [...] Potts APRN, C.N.P., D.N.P., 10 mg at 06/12/25 1743 [START ON 06/19/2025] buprenorphine 5 mcg/hour 1 [...] in this encounter Nursing Notes * Ariadna Schumacher, R.N. - 06/13/2025 3:40 PM CDT Shift [...] CDT Telemedicine Department of Palliative Care in [place], [place] [address] [place] [address] Meghan Osorio M.D. [address] [place] [phone] 07/22/2025 8:40 AM CDT Lab Department of Laboratory Medicine and Pathology, [facility] in [place], [place] [address] [place] [address] Becky Hernandez APRN C.N.P., D.N.P. [address] [place] [phone] 07/22/2025 9:30 AM CDT Office Visit [facility] Clinical Regeneration in [place], [place] [address] [place] [phone] Becky Hernandez APRN, C.N.P., D.N.P. [address] [place] [phone] 07/30/2025 2:00 PM CDT Appointment Division of Gastroenterology in [place], [place] [address] [place] [phone] Derrick Cruz Jr., M.D., M.S. [address] [place] [phone] 08/11/2025 9:00 AM CDT Nurse Only Section of Infectious Diseases in [place], [place] [address] [place] [phone] Jessica Rousseau M.B.B.S. [address] [place] [phone] 08/11/2025 1:00 PM CDT Clinical Support Department of Palliative Care in [place], [place] [address] [place] [address] Uma Aly APRN, Satnam.N.P., M.S.N. [address] [place] [phone] 08/13/2025 10:00 AM CDT Lab Department of Laboratory Medicine and Pathology, [facility], in [place], [place] [address] [place] [address] Jessica Rousseau M.B.B.S. [address] [place] [phone] 08/13/2025 10:30 AM CDT [facility] in [place], [place] [address] [place] [address] Jessica Rousseau M.B.B.S. [address] [place] [phone] 08/13/2025 11:00 AM CDT Nurse Only [facility] in [place], [place] [address] [place] [address] Jessica Rousseau M.B.B.S. [address] [place] [phone] 08/13/2025 11:30 AM CDT [facility] in [place], [place] [address] [place] [address] Jessica Rousseau M.B.B.S. [address] [place] [phone] 09/25/2025 10:30 AM BEHAVIOR SPECIALIST Telemedicine [facility] Transplantation and Clinical Regeneration in [place], [place] [address] [place] [address] Jessica Rousseau M.B.B.S. [address] [place] [phone] documented as of this encounter Procedures Procedure [...] D.N.P. LAB BLOO D ADD-ON Final Result [facility] [address] [place] [address], [facility] [address] [place] [address] * (ABNORMAL) CBC with Differential, Blood (06/13/2025 [...] AM CDT 06/13/2025 9:34 AM CDT Alok Jensenpranay BRANTLEY, C.N.P., DeniseN.P. LAB BLOO D ADD-ON Final Result [facility] [address] [place] [address], [facility] [address] [place] [address] DHPM [facility] [address] [place] [address] * CT Abdomen Pelvis with IV Contrast [...] colonic stoolburden. Renita Potts APRN, C.N.P., D.N.P. [facility] CT PROC EDURES Final Result * Comprehensive Metabolic Panel (06/12/2025 5:37 PM CDT) Pathologist [facility] Potassium, S 5.0 3.6 - 5.2 mmol/L [...] D.N.P. LAB BLOO D ADD-ON Final Result [facility] [address] [facility] [address] [place] [address] * (ABNORMAL) CBC no call back, reflex [...] LAB BLOO D NON ADD-ON Final Result [facility] [address] [place] [address], [facility] [address] [place] [address] [facility] [address] [place] [address] documented in this encounter Visit Diagnoses Diagnosis [...] Schumacher R.N.)2009 (Not Given - Provider: Raymond Perze R.N. - Reason: Patient/family refused) 0952 (Given [...] Pain 2008 (Given - Provider: Raymond Perez RKatalinaN.) 0646 (Given - Provider: Marko Shine RFritz) ibuprofen tablet 400 mg 400 mg, oral, [...] Protocol Orders, Dose per Radiant Medication Guidelines 183 (Given - Provider: Saranya Arambula) loperamide capsule [...] Total Score: 2 12/10/19 25 2:46 PM BEHAVIOR SPECIALIST documented as of this encounter Care Teams Acds Block 1 Operator Relationship Specialty Start Date End Date Renzo Andres M.D. [address] [place] [phone] PCP - General Family Medicine 04/25/23 documented as of this encounter
--- OUTSIDE RECORDS SUMMARY | 2025-06-15 09:13 | XMS_ITS | Encounter Summary ---
Author Organization [facility] Address [address] [place] [address] Care Team Providers Care Medical Dir Name Role Phone Renzo Andres M.D. 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 [address] [place] [address] Phone: tel: fax: [facility] Referral ID Status Reason Start Date Expiration Date Visits Re quested Visits Authorized [id number] Closed 03/25/2025 06/25/2026 1 1 Encounter Details Date Type Department Care Team (Latest Contact Info) Description 06/15/2025 9:13 AM CDT - 06/15/2025 11:59 PM CDT Hospital Encounter Outpatient Procedure Center in [place], [place] [address] [place] [address] Jessica Rousseau M.B.B.S. 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 No 06/12/2025 [facility] Utilities Answer [...] a [facility] live 06/12/2025 Education Answer Date Recorded What is the highest level of school you have completed or the highest degree you have received? Some college, no degree 04/24/2019 Comments No Sex and Gender Information Value Date Recorded Sex Assigned at Female 12/26/2018 8:37 PM A R SPECIALIST Legal Sex Female 2:43 PM A R SPECIALIST Gender Identity Female 12/26/2018 8:37 PM A R SPECIALIST Sexual Orientation Choose not to disclose [...] have immediate or urgent concerns, please call [phone] between the hours of 7 am and 11pm. If you have concerns outside of these hours, call the [facility] Gastroenterology Professor at [phone] and ask to speak to the Tubing Assembler on-call. * Attachments The following attachments cannot [...] mouth daily. Dose change 12/02/2024 30 tablet 04/15/2025 10/12/20 25 cholecalciferol (Vitamin D3) 50 [...] (two) times a day. 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 Authorized by: Soham, Aasiya, M.B.B.S. Care team members present 1. Kevin [...] CDT Telemedicine Department of Palliative Care in [place], [place] [address] [place] [address] Meghan Osorio M.D. [address] [place] [phone] 07/22/2025 8:40 AM CDT Lab Department of Laboratory Medicine and Pathology, [facility], in [place], [place] [address] [place] [phone] Becky Hernandez APRN, C.N.P., D.N.P. [address] [place] [phone] 07/22/2025 9:30 AM CDT Office Visit [facility] in [place], [place] [address] [place] [address] Becky Hernandez APRN C.N.P., D.N.P. [address] [place] [phone] 07/30/2025 2:00 PM CDT Appointment Division of Gastroenterology in [place], [place] [address] [place] [phone] Derrick Cruz Jr., M.D., M.S. [address] [place] [phone] 08/11/2025 9:00 AM CDT Nurse Only Section of Infectious Diseases in [place], [place] [address] [place] [address] Jessica Rousseau M.B.B.S. [address] [place] [phone] 08/11/2025 1:00 PM CDT Clinical Support Department of Palliative Care in [place], [place] [address] [place] [phone] Uma Aly APRN, Satnam.N.P., M.S.N. [address] [place] [phone] 08/13/2025 10:00 AM CDT Lab Department of Laboratory Medicine and Pathology, [facility], in [place], [place] [address] [place] [address] Jessica Rousseau M.B.B.S. [address] [place] [address] 08/13/2025 10:30 AM CDT Office Visit [facility] in [place], [place] [address] [place] [address] Jessica Rousseau M.B.B.S. [address] [place] [phone] 08/13/2025 11:00 AM CDT Nurse Only [facility] Transplantation and Clinical Regeneration in [place], [place] [address] [place] [phone] Jessica Rousseau M.B.B.S. [address] [place] [phone] 08/13/2025 11:30 AM CDT Office Visit [facility] Transplantation and Clinical Regeneration in [place], [place] [address] [place] [address] Jessica Rousseau M.B.B.S. [address] [place] [phone] 09/25/2025 10:30 AM A R SPECIALIST Telemedicine [facility] Transplantation and Clinical Regeneration in [place], [place] [address] [place] [address] Jessica Rousseau M.B.B.S. 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 ClinicalTrials.gov : http://clinicaltri als.gov/ct2/search /advanced 2). [facility]: http://www.[place].[facility]/research/clinica l-trials 3). National Cancer [place]: http://www.cancer. gov/clinicaltrials /search 4). The Leukemia & Lymphoma Society's Clinical Trial Support Center https://www.hemato logy.org/education /clinicians/clinic mt-ncbzl-rsaoods-c enter 06/22/2025 3:03 PM CDT DTL Variants of Unknown Significance (VUS) None 06/22/2025 3:03 PM CDT DTL Additional Information None A portion of the testing process was performed at [facility] site [id number]. 06/22/2025 3:03 PM CDT DTL Method DNA [...] developed and its performance characteristics determined by [facility] in a manner consistent with CLIA requirements. This test has not been cleared or approved by the U.S. Food and Drug Administration. *Some genetic or genomic alterations such as very large insertion/deletion events, copy number alterations (EXCHANGE CLERK) and gene translocation events are not detected [...] (clonal cytopenias of uncertain significance, CCUS) [PMIDs: 20190041, [id number], [id number], and [id number]]. Distinction between CHIP or CCUS and a [...] very large insertion/deletion events, copy number alterations (EXCHANGE CLERK) and gene translocation events are not detected [...] ([id number]) exons 2 and 4, start at c.-19-30 before exon 2, GATA2 ([id number]) exons 1-6, [...] require complete integration with current pathology case [id number] for final interpretation. The result should NOT [...] CDT 06/15/2025 3:07 PM CDT us Jessica DowlingB.S. LAB GENETIC TESTING Final Result Performing Organization Address [facility]/ZIP Co de Phone Number [facility] [address] [place] [address], [facility] [address] [address] * Hematologic Disorders, DNA Extract and Hold [...] the Molecular Hematopathology Laboratory's test menu, contact [facility] at [phone]. Method summary: DNA was extracted using an EZ1 BioRobot ([employer]). 06/15/2025 9:50 AM CDT 06/15/2025 3:07 PM CDT Jessica DowlingB.S. LAB BLOOD NON ADD-ON Final Result Performing Organization Address City/[facility]/ZIP Co de Phone Number [facility] [address] [place] [address], [facility] [address] [place] [address] * BCR/ABL1, p210, mRNA Detection, Reverse Chili Maker-PCR (RT-PCR), Quantitative, Monitoring Chronic Myeloid Leukemia (CML) (06/15/2025 9:50 AM CDT) Specimen Type Bone marrow 06/16/2025 9:12 AM CDT DTL BCR/ABL1, p210 Result see interpretation 06/16/2025 9:12 AM CDT DTL Interpretation These results are considered ancillary findings and require complete integration with the current pathology case [id number] for final interpretation. The result should NOT [...] level was evaluated using a quantitative, reverse utility supervisor boat and plant PCR. The analytical sensitivity of this assay [...] all possible fusion forms. Please contact the [facility] at [phone] with questions or if additional testing is required. See the [facility] Interpretive Handbook for method details. The [...] developed and its performance characteristics determined by [facility] in a manner consistent with CLIA requirements. This test has not been cleared or approved by the U.S. Food and Drug Administration. 06/15/2025 9:50 AM CDT 06/15/2025 3:07 PM CDT Jessica LiconaSKatalina LAB BLOOD NON ADD-ON Final Result [facility] [address] [place] [address], [facility] 200 [facility] 200 [place] [address] * Chimerism Transplant No Cell Sort (06/15/2025 9:50 AM CDT) Specimen Type Bone marrow 06/17/2025 5:01 PM CDT DTL Interpretation These results are considered ancillary findings and require complete integration with the current pathology case [id number] for final interpretation. The result should NOT [...] and recipient DNA mixed chimerism). Markers analyzed: [id number], [id number], FGA, SE33, vWA, D21S11, [id number], [id number], R79N162, D18S51, Z3S244, T0I2606, CSF1PO, H7D366, Q12Y391, J25N398, TPOX, R09V009, W2J121 and [id number] 06/17/2025 5:01 PM CDT DTL Comment: ----ADDITIONAL INFORMATION---- Method summary - Chimerism: Genomic DNA was extracted and the specimen evaluated for the percentages of donor and recipient DNA using a PCR-based method that amplifies several highly polymorphic short tandem repeats (see [facility] Interpretive Handbook for method details). This test was developed and its performance characteristics determined by [facility] in a manner consistent with CLIA requirements. This test has not been cleared or approved by the U.S. Food and Drug Administration. 06/15/2025 9:50 AM CDT 06/15/2025 12:09 PM CDT Jessica LiconaSKatalina LAB GENETIC TESTING Final Result [facility] [address] [place] [address], [facility] 200 [facility] [address] [place] [address] * [place] DX BONE MARROW BX & ASPIR (06/15/2025 9:45 AM CDT) Bone Marrow Narrative MMODAL - 06/15/2025 9:45 AM CDT Kevin Villa R.N. 06/15/2025 9:53 AM Biopsy Bone Marrow, Sedated Performed by: Kevin Villa R.N. Authorized by: Jessica Rousseau M.B.BKatalinaSKatalina Care team members present 1. Kevin Villa [...] COMMENTS 100 mg 1% Lidocaine given SQ. us Jessica Barnes PROCEDURE/MINOR SURGICAL O RDERABLES Final Result [facility] NA * Hematopathology (06/15/2025 12:00 AM CDT) 06/16/2025 10:32 AM [facility] Report electronically signed by Hanna Xiong M.D., Ph.D. I verify that I have examined all relevant slides/materials for the specimen(s) and rendered or confirmed the diagnosis. 06/16/2025 10:32 AM [facility] Gross Description B: Core biopsy specimens were [...] C1. Grossed by OER. 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 3 informative loci were used in the analysis of this sample. See molecular report for complete details. Molecular Hematopathology studies interpreted by Jaylin Beltran M.D. Signed by Hanna Xiong M.D., Ph.D. 06/18/2025 11:35 AM ADDENDUM Molecular analysis for BCR/ABL1, p210, quant, bone marrow ([id number]; 06/15/2025): Negative. No BCR/ABL1 p210 mRNA transcripts [...] Ph.D. 06/16/2025 3:33 PM 06/23/2025 8:41 AM [facility] Comment:REVISED RESULTS Interpretation FINAL DIAGNOSIS Peripheral blood, [...] date of extraction. 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 [address] [place] [address] [place] [phone] PCP - General Family Medicine 04/25/23 documented as of this encounter
--- OUTSIDE RECORDS SUMMARY | 2025-06-15 09:41 | XMS_ITS | Encounter Summary ---
Author Organization [facility] Address [address] [place] [address] Care Team Providers Care Carpenter Assembler Name Role Phone Renzo Andres M.D. Primary Care Provider [phone] Encounter Details Date Type Department Care Team (Late st Contact Info) Description 06/15/2025 9:41 AM CDT Anesthesia Event Outpatient Procedure Center in [place], [place] [address] [place] [phone] Myla Valenzuela APRN, TANA, DNAP [address] [place] [phone] Kristin Friend M.D. [address] [place] [phone] Anesthesia Record Procedure Summary Procedure Name Responsible [...] things needed for daily living? No 06/12/2025 [facility] Utilities Answer Date Recorded In the past 12 months has th e electric, gas, oil, or water company threatened to shut off services in your home? No 06/12/2025 Depression Answer Date Recor ded PHQ-9 Total Score (max 27) 2 12/10 Housing Stability Answer Date Recorded What is your living situation today? I have a [facility] place to live 06/12/2025 Education Answer Date Recorded What is the highest level of school you have completed or the highest degree you have received? Some college, no degree 04/24/2019 Comments No Sex and Gender Information Value Date Recorded Sex Assigned at Female 12/26/2018 8:37 PM GLUE CLAMP OPERATOR Legal Sex Female 2:43 PM GLUE CLAMP OPERATOR Gender Identity Female 12/26/2018 8:37 PM GLUE CLAMP OPERATOR Sexual Orientation Choose not to disclose 2020 3:46 PM CDT documented as of this encounter OR Notes * Anesthesia Postprocedure Evaluation - Myla Valenzuela, KARON, BOAT RIGGER, DNAP - 06/15/2025 9:58 AM CDT Patient: Radha Martinez Procedure Summary Date: 06/15/25 Room / Location: Outpatient Procedure Center in [place], [place] Anesthesia Start: 940 Anesthesia Stop: 955 Procedure: BIOPSY BONE MARROW Diagnosis: 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 The use of blood products not discussed Approval to Proceed: approved for anesthesia documented in this encounter Plan of Treatment Upcoming Encounters Date Type Department Care Team (Late st Contact Info) Description 07/21/2025 11:00 AM CDT Telemedicine Department of Palliative Care in [place], [place] [address] [place] [phone] Meghan Osorio M.D. [address] [place] [phone] 07/22/2025 8:40 AM CDT Lab Department of Laboratory Medicine and Pathology, [facility] in [place], [place] [address] [place] [phone] Becky Hernandez APRN, C.N.P., D.N.P. [address] [place] [phone] 07/22/2025 9:30 AM CDT [facility] in [place], [place] [address] [place] [phone] Becky Hernandez APRN, C.N.P., D.N.P. [address] [place] [phone] 07/30/2025 2:00 PM CDT Appointment Division of Gastroenterology in [place], [place] [address] [place] [phone] Derrick Cruz Jr., M.D., M.S. [address] [place] [phone] 08/11/2025 9:00 AM CDT Nurse Only Section of Infectious Diseases in [place], [place] [address] [place] [phone] Jessica Rousseau M.B.B.S. [address] [place] [phone] 08/11/2025 1:00 PM CDT Clinical Support Department of Palliative Care in [place], [place] [address] [place] [phone] Uma Aly APRN, C.N.P., M.S.N. [address] [place] [phone] 08/13/2025 10:00 AM CDT Lab Department of Laboratory Medicine and Pathology, [facility], in [place], [place] [address] [place] [phone] Jessica Rousseau M.B.B.S. [address] [place] [phone] 08/13/2025 10:30 AM CDT Office Visit Pedro [facility] in [place], [place] [address] [place] [phone] Jessica Rousseau M.B.B.S. [address] [place] [phone] 08/13/2025 11:00 AM CDT Nurse Only Pedro MylaKatalina laura [facility] Trans[facility] Clinical Regeneration in [place], [place] [address] [place] [address] Jessica Rousseau M.B.B.S. [address] [place] [phone] 08/13/2025 11:30 AM CDT Office Visit Pedro sanchez [facility] Transplantation [facility] Clinical Regeneration in [place], [place] [address] [place] [address] Jessica Rousseau M.B.B.S. [address] [place] [phone] 09/25/2025 10:30 AM GLUE CLAMP OPERATOR Telemedicine Pedro Myla laura [facility] Trans[facility] Clinical [facility] in [place], [place] [address] [place] [address] Jessica Rousseau M.B.B.S. [address] [place] [phone] documented as of this encounter Visit Diagnoses [...] Total Score: 2 12/10/19 25 2:46 PM GLUE CLAMP OPERATOR documented as of this encounter Care Teams Carpenter Assembler Relationship Specialty Start Date End Date Renzo Andres M.D. [address] [place] [address] [place] [phone] PCP - General Family Medicine 04/25/23 documented as of this encounter
--- OUTSIDE RECORDS SUMMARY | 2025-06-15 14:00 | XMS_ITS | Encounter Summary ---
Author Organization [facility] Address [address] [place] [address] Care Team Providers Care Material Reclaimer Name Role Phone Renzo Andres M.D. Primary Care Provider Reason for Visit * Transplant (Routine) - Closed Specialty Diagnoses / Procedures Referred By Estefania t Referred To Contact Transplant Jessica Rousseau M.B.B.S. [address] [place] [phone] Phone: tel: fax: [facility] Referral ID Status Reason Start Date Expiration Date Visits Re quested Visits Authorized [id number] Closed 06/11/2025 12/11/2026 1 1 Encounter Details Date Type Department Care Team (Latest Contact Info) Description 06/15/2025 2:00 PM CDT [facility] in [place], [place] [address] [place] [address] [phone] Jessica Rousseau M.B.B.S. [address] [place] [address] [phone] Analia Carter, DIGITAL SALES MANAGER, C.N.P. 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 No 06/12/2025 [facility] Utilities Answer Date Recorded In the past [address] [facility] electric, gas, oil, or water company threatened to shut off services in your home? No 06/12/2025 Depression Answer Date Recor ded PHQ-9 Total Score (max 27) 2 12/10 Housing Stability Answer Date Recorded What is your living situation today? [facility] 06/12/2025 Education Answer Date Recorded What is the highest level of school you have completed or the highest degree you have received? Some college, no degree 04/24/2019 Comments No Sex and Gender Information Value Date Recorded Sex Assigned at Female 12/26/2018 8:37 PM HEALTH PROGRAM SPECIALIST Legal Sex Female 2:43 PM HEALTH PROGRAM SPECIALIST Gender Identity Female 12/26/2018 8:37 PM HEALTH PROGRAM SPECIALIST Sexual Orientation Choose not to disclose [...] SUBJECTIVE TRANSPLANT PHYSICIAN Dr. Jessica Rousseau, pager [phone]. HISTORY OF PRESENT ILLNESS Radha Martinez is [...] reticulin fibrosis noted. The cytogenetics identified a Spring chromosome in 20 metaphases. The BCR-ABL1 [...] t(9;22) metaphases. NGS is positive for ASXL1 p.Byi749Eqhtg*12 (20%) and p.Gsz246* (3%). 06/17/2024: feeling quite symptomatic since the [...] donor DNA and approximately 40% recipient DNA. [id number]% donor DNA and approximately 0% recipient DNA. [...] had just started 40 mg daily today [address]) - monitor if chest pressure improves (this [...] Followed by [facility] in [place], [place]. - Patient will notify team if any vision changes. # Blood Products # TACO - Requires infusion of platelets at a slower rate # Disposition - 06/25/25 Echocardiogram - 06/25/[address] - 06/25/[address] [place] [address] Rousseau - 06/26/ video visit with Palliative care documented in this encounter Plan of Treatment Upcoming Encounters Date Type Department Care Team (Late st Contact Info) Description 07/21/2025 11:00 AM CDT Telemedicine Department of Palliative Care in [place], [place] [address] [place] [phone] Meghan Osorio M.D. [address] [place] [phone] 07/22/2025 8:40 AM CDT Lab Department of Laboratory Medicine and Pathology, [facility], in [place], [place] [address] [place] [address] [phone] Becky Hernandez APRN, C.N.P., D.N.P. [address] [place] [phone] 07/22/2025 9:30 AM CDT Office [facility] in [place], [place] [address] [place] [phone] Becky Hernandez APRN, C.N.P., D.N.P. [address] [place] [phone] 07/30/2025 2:00 PM CDT Appointment Division of Gastroenterology in [place], [place] [address] [place] [phone] Derrick Cruz Jr., M.D., M.S. [address] [place] [phone] 08/11/2025 9:00 AM CDT Nurse Only Section of Infectious Diseases in [place], [place] [address] [place] [phone] Jessica Rousseau M.B.B.S. [address] [place] [phone] 08/11/2025 1:00 PM CDT Clinical Support Department of Palliative Care in [place], [place] [address] [place] [phone] Uma Aly APRN, C.N.P., M.S.N. [address] [place] [phone] 08/13/2025 10:00 AM CDT Lab Department of Laboratory Medicine and Pathology, [facility], in [place], [place] [address] [place] [phone] Jessica Rousseau M.B.B.S. [address] [place] [phone] 08/13/2025 10:30 AM CDT Office [facility] in [place], [place] [address] [place] [address] Jessica Rousseau M.B.B.S. [address] [place] [address] [phone] 08/13/2025 11:00 AM CDT Nurse Only Pedro Lanza laura [facility] Transplantation and Clinical Regeneration in [place], [place] [address] [place] [address] Jessica Rousseau M.B.B.S. [address] [place] [phone] 08/13/2025 11:30 AM CDT Office [facility] in [place], [place] [address] [place] [address] Jessica Rousseau M.B.B.S. [address] [place] [phone] 09/25/2025 10:30 AM HEALTH PROGRAM SPECIALIST Telemedicine [facility] in [place], [place] [address] [place] [phone] Jessica Rousseau M.B.B.S. 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 [address] [place] [address] [place] [phone] PCP - General Family Medicine 04/25/23 documented as of this encounter
--- OUTSIDE RECORDS SUMMARY | 2025-06-22 18:56 | XMS_ITS | Encounter Summary ---
Author Organization [facility] Address [address] [place] [address] Care Team Providers Care Licensed Midwife Name Role Phone Renzo Andres M.D. Primary Care Provider [phone] Reason for Referral * Specialty Diagnoses / Procedures Referred By Estefania acosta Referred To Contact RST [facility] [address] [place] [address] Phone: tel: [facility] Referral ID Status Reason Start Date Expiration Date Visits Re quested Visits Authorized Encounter Details Date Type Department Care Team (Latest Contact Info) Description 06/22/2025 6:56 PM CDT - 06/22/2025 11:59 PM CDT Hospital Encounter [facility], [facility], Ninth Floor [address] [place] [phone] Natalya Carlos P.A.-C. 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 No 06/24/2025 [facility] Utilities Answer Date Recorded In the past 12 months has [facility] [employer], gas, oil, or water [employer] threatened to shut off services in your home? No 06/24/2025 Depression Answer Date Recor ded PHQ-9 Total Score (max 27) 2 12/10 Housing Stability Answer Date Recorded What is your living situation today? I have a [facility] place to live 06/24/2025 Education Answer Date Recorded What is the highest level of school you have completed or the highest degree you have received? Some college, no degree 04/24/2019 Comments No Sex and Gender Information Value Date Recorded Sex Assigned at Female 12/26/2018 8:37 PM TRUST VAULT CUSTODIAN Legal Sex Female 2:43 PM TRUST VAULT CUSTODIAN Gender Identity Female 12/26/2018 8:37 PM TRUST VAULT CUSTODIAN Sexual Orientation Choose not to disclose 2020 [...] Indication: Chronic Pain/Nonacute Pain. 4 patch 06/19/2025 07/14/20 25 diphenhydrAMINE (BenadryL) 25 mg capsule Take [...] 05/29/2025 06/23/20 25 posaconazole (NoxafiL) 100 mg tabletIndications:L eukemia Myeloid [...] of this encounter Progress Notes * Jany Crockett, R.N. - 06/22/2025 7:00 PM CDT Reason for [...] CDT # Incoming phone call, 06/22 @ 5479 Phone call was routed from 9 nursing [...] She desired evaluation this evening on St 07-23 for her pain and naus ea and was willing to drive down from [place]. She does have follow up on [place] [address] already scheduled for 06/[address] Rousseau. A 7 pm appointment was made. Report was given to the [facility] moonlighter to assess her this evening and [...] reticulin fibrosis noted. The cytogenetics identified a [place] chromosome in 20 metaphases. The BCR-ABL1 P [...] nausea and was willing to drive downfrom [place]. She does have follow up on [place] [address] already scheduled for 06/[address] Rousseau. [...] t(9;22) metaphases. 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 06/17/2024: feeling quite symptomatic since the [...] free. She does have follow up on [place] already scheduled for 06/[address] Rousseau. Education We discussed the diagnosis and treatment plan in detail. The patient expressed understanding of thecontent. No apparent learning barriers were identified; learning preferences include listening. Signed by: Ryan Tipton M.D. 06/23/2025 11:11 AM CDT documented in this encounter Plan of Treatment Upcoming Encounters Date Type Department Care Team (Late st Contact Info) Description 07/21/2025 11:00 AM CDT Telemedicine Department of Palliative Care in [place], [place] [address] [place] [phone] Meghan Osorio M.D. [address] [place] [phone] 07/22/2025 8:40 AM CDT Lab Department of Laboratory Medicine and Pathology, [facility] in [place], [place] [address] [place] [phone] Becky Hernandez APRN, C.N.P., D.N.P. [address] [place] [phone] 07/22/2025 9:30 AM CDT Office Visit [facility] for Transplantation and Clinical Regeneration in [place], [place] [address] [place] [phone] Becky Hernandez APRN, C.N.P., D.N.P. [address] [place] [phone] 07/30/2025 2:00 PM CDT Appointment Division of Gastroenterology in [place], [place] [address] [place] [phone] Derrick Cruz Jr., M.D., M.S. [address] [place] [phone] 08/11/2025 9:00 AM CDT Nurse Only Section of Infectious Diseases in [place], [place] [address] [place] [phone] Jessica Rousseau M.B.B.S. [address] [place] [phone] 08/11/2025 1:00 PM CDT Clinical Support Department of Palliative Care in [place], [place] [address] [place] [address] Uma Aly APRN, C.NLuigi., M.S.N. [address] [place] [phone] 08/13/2025 10:00 AM CDT Lab Department of Laboratory Medicine and Pathology, [facility] in [place], [place] [address] [place] [address] Jessica Rousseau M.B.B.S. [address] [place] [phone] 08/13/2025 10:30 AM CDT [facility] in [place], [place] [address] [place] [address] Jessica Rousseau M.B.B.S. [address] [place] [phone] 08/13/2025 11:00 AM CDT Nurse Only [facility] in [place], [place] [address] [place] [address] Jessica Rousseau M.B.B.S. [address] [place] [phone] 08/13/2025 11:30 AM CDT [facility] in [place], [place] [address] [place] [address] Jessica Rousseau M.B.B.S. [address] [place] [phone] 09/25/2025 10:30 AM TRUST VAULT CUSTODIAN Telemedicine Pedro sanchez [facility] for Transplantation and Clinical Regeneration in [place], [place] [address] [place] [phone] Jessica Rousseau M.B.B.S. [address] [place] [address] Scheduled Referrals Name Type Priority Associated Diagnoses [...] 6 hours PRN, nausea, vomiting, Starting on Sun06/22/25 at 1951, For 1 day, Oral route preferred.Indications:Leukem ia Myeloid Chronic BCR/ABL Positive Remission (HCC),Transplant Bone Marrow Allogeneic (HCC) Given 06/22/2025 7:57 PM CDT 10 mg documented in this encounter Additional Health Concerns Infection Onset Date Last Indicated Resolved Time Protective Environment 03/02/2023 03/02/2023 Assessment Noted Time PHQ-9 Depression Total Score: 2 12/10/19 25 2:46 PM TRUST VAULT CUSTODIAN documented as of this encounter Care Teams Licensed Midwife Relationship Specialty Start Date End Date Renzo Andres M.D. [address] [place] [phone] PCP - General Family Medicine 04/25/23 documented as of this encounter
--- OUTSIDE RECORDS SUMMARY | 2025-06-23 08:30 | XMS_ITS | Encounter Summary ---
Author Organization [facility] Address [address] [place] [address] Care Team Providers Care Senior Investigator Name Role Phone Renzo Andres M.D. Primary Care Provider Reason for Visit * Outpatient (Routine) - Closed Specialty Diagnoses / Procedures Referred By Estefania t Referred To Contact Pharmacy Tessa Jesus APRN, C.N.P., D.N.P. [address] [place] [phone] Phone: tel: fax: [facility] Referral ID Status Reason Start Date Expiration Date Visits Re quested Visits Authorized [id number] Closed 05/20/2025 11/19/2026 1 1 Encounter Details Date Type Department Care Team (Latest Contact Info) Description 06/23/2025 8:30 AM CDT Office Visit Pedro sanchez [facility] for Transplantation and Clinical Regeneration in [place], [place] [address] [place] [phone] Tessa Jesus APRN, C.N.P., D.N.P. [address] [place] [phone] Nelli Parker, Pharm.D., R.Ph. [address] [place] [address] [place] [phone] Transplant Stem Cell (HCC) (Primary Dx) Discharge [...] things needed for daily living? No 06/24/2025 [facility] Utilities Answer Date Recorded In the past [address] [facility] electric, gas, oil, or water company threatened to shut off services in your home? No 06/24/2025 Depression Answer Date Recor ded PHQ-9 Total Score (max 27) 2 12/10 Housing Stability Answer Date Recorded What is your living situation today? I have a [facility] place to live 06/24/2025 Education Answer Date Recorded What is the highest level of school you have completed or the highest degree you have received? Some college, no degree 04/24/2019 Comments No Sex and Gender Information Value Date Recorded Sex Assigned at Female 12/26/2018 8:37 PM LEAD NET SOFTWARE DEVELOPER Legal Sex Female 2:43 PM LEAD NET SOFTWARE DEVELOPER Gender Identity Female 12/26/2018 8:37 PM LEAD NET SOFTWARE DEVELOPER Sexual Orientation Choose not to disclose [...] 06/23/2025 8:30 AM CDT Medication Management Services ([facility]) SUBJECTIVE Radha Martinez is a 35 y.o. female, who is seen by the [facility] Pharmacist for targeted medication review. She [...] Depression Brother shena martinez Anxiety disorder [facility] Maternal Grandmother nancy Breast cancer Maternal Grandmother nancy Psychiatric Maternal Grandfather silvia [facility] Skin cancer Paternal Grandfather Berkley vega [4] [...] Camargo; Surgeon: Brianna Hernandez M.D., Ph.D.; Location: [facility] OR [7] Patient Active Problem List Diagnosis [...] CDT Telemedicine Department of Palliative Care in [place], [place] [address] [place] [phone] Meghan Osorio M.D. [address] [place] [phone] 07/22/2025 8:40 AM CDT Lab Department of Laboratory Medicine and Pathology, [facility], in [place], [place] [address] [place] [phone] Becky Hernandez APRN, C.N.P., D.N.P. [address] [place] [phone] 07/22/2025 9:30 AM CDT [facility] in [place], [place] [address] [place] [phone] Becky Hernandez APRN, C.N.P., D.N.P. [address] [place] [phone] 07/30/2025 2:00 PM CDT Appointment Division of Gastroenterology in [place], [place] [address] [place] [phone] Derrick Cruz Jr., M.D., M.S. [address] [place] [phone] 08/11/2025 9:00 AM CDT Nurse Only Section of Infectious Diseases in [place], [place] [address] [place] [phone] Jessica Rousseau M.B.B.S. [address] [place] [phone] 08/11/2025 1:00 PM CDT Clinical Support Department of Palliative Care in [place], [place] [address] [place] [phone] Uma Aly APRN, C.N.P., M.S.N. [address] [place] [phone] 08/13/2025 10:00 AM CDT Lab Department of Laboratory Medicine and Pathology, [facility], in [place], [place] [address] [place] [address] Jessica Rousseau M.B.B.S. [address] [place] [phone] 08/13/2025 10:30 AM CDT [facility] in [place], [place] [address] [place] [phone] Jessica Rousseau M.B.B.S. [address] [place] [phone] 08/13/2025 11:00 AM CDT Nurse Only [facility] in [place], [place] [address] [place] [phone] Jessica Rousseau M.B.B.S. [address] [place] [phone] 08/13/2025 11:30 AM CDT Office Visit [facility] Transplantation and Clinical Regeneration in [place], [place] [address] [place] [phone] Jessica Rousseau M.B.B.S. [address] [place] [phone] 09/25/2025 10:30 AM LEAD NET SOFTWARE DEVELOPER Telemedicine [facility] Transplantation and Clinical Regeneration in [place], [place] [address] [place] [phone] Jessica Rousseau M.B.B.S. [address] [place] [phone] documented as of this encounter Visit Diagnoses Diagnosis Transplant Stem Cell (HCC)- Primary documented in this encounter Additional Health Concerns Infection Onset Date Last Indicated Resolved Time Protective Environment 03/02/2023 03/02/2023 Assessment Noted Time PHQ-9 Depression Total Score: 2 12/10/19 25 2:46 PM LEAD NET SOFTWARE DEVELOPER documented as of this encounter Care Teams Senior Investigator Relationship Specialty Start Date End Date Renzo Andres M.D. [address] [place] [phone] PCP - General Family Medicine 04/25/23 documented as of this encounter
--- OUTSIDE RECORDS SUMMARY | 2025-06-23 09:00 | XMS_ITS | Encounter Summary ---
Author Organization [facility] Address [address] [place] [address] Care Team Providers Care Pediatric Clinical Dietician Name Role Phone Renzo Andres M.D. Primary Care Provider Encounter Details Date Type Department Care Team (Late st Contact Info) Description 06/23/2025 9:00 AM CDT Patient [facility] in [place], [place] [address] [place] [address] Carolyn Crowell Social History Tobacco Use Types [...] things needed for daily living? No 06/24/2025 [facility] Utilities Answer Date Recorded In the past 12 months has th e electric, gas, oil, or water company threatened to shut off services in your home? No 06/24/2025 Depression Answer Date Recor ded PHQ-9 Total Score (max 27) 2 12/10 Housing Stability Answer Date Recorded What is your living situation today? I have a [facility] place to live 06/24/2025 Education Answer Date Recorded What is the highest level of school you have completed or the highest degree you have received? Some college, no degree 04/24/2019 Comments No Sex and Gender Information Value Date Recorded Sex Assigned at Female 12/26/2018 8:37 PM LOCKSMITH APPRENTICE Legal Sex Female 2:43 PM LOCKSMITH APPRENTICE Gender Identity Female 12/26/2018 8:37 PM LOCKSMITH APPRENTICE Sexual Orientation Choose not to disclose [...] the patient navigation team with any questions. [facility] [phone]. Cosigned by Mallory Corey, L.S.W. at 06/30/2025 2:34 PM CDT documented in this encounter Plan of Treatment Upcoming Encounters Date Type Department Care Team (Late st Contact Info) Description 07/21/2025 11:00 AM CDT Telemedicine Department of Palliative Care in [place], [place] [address] [place] [phone] Meghan Osorio M.D. [address] [place] [phone] 07/22/2025 8:40 AM CDT Lab Department of Laboratory Medicine and Pathology, [facility], in [place], [place] [address] [place] [phone] Becky Hernandez APRN C.N.P., D.N.P. [address] [place] [phone] 07/22/2025 9:30 AM CDT Office Visit Pedro Aravind sanchez [facility] for Transplantation and Clinical Regeneration in [place], [place] [address] [place] [phone] Becky Hernandez APRN C.N.P., D.N.P. [address] [place] [phone] 07/30/2025 2:00 PM CDT Appointment Division of Gastroenterology in [place], [place] [address] [place] [phone] Derrick Cruz Jr., M.D., M.S. [address] [place] [phone] 08/11/2025 9:00 AM CDT Nurse Only Section of Infectious Diseases in [place], [place] [address] [place] [phone] Jessica Rousseau M.B.B.S. [address] [place] [phone] 08/11/2025 1:00 PM CDT Clinical Support Department of Palliative Care in [place], [place] [address] [place] [address] Uma Aly APRN, C.N.P., M.S.N. [address] [place] [phone] 08/13/2025 10:00 AM CDT Lab Department of Laboratory Medicine and Pathology, [facility] in [place], [place] [address] [place] [phone] Jessica Rousseau M.B.B.S. [address] [place] [phone] 08/13/2025 10:30 AM CDT [facility] in [place], [place] [address] [place] [address] Jessica Rousseau M.B.B.S. [address] [place] [phone] 08/13/2025 11:00 AM CDT Nurse Only [facility] for Transplantation and Clinical Regeneration in [place], [place] [address] [place] [address] Jessica Rousseau M.B.B.S. [address] [place] [phone] 08/13/2025 11:30 AM CDT Office Visit [facility] in [place], [place] [address] [place] [address] Jessica Rousseau M.B.B.S. [address] [place] [address] 09/25/2025 10:30 AM LOCKSMITH APPRENTICE Telemedicine Pedro sanchez [facility] for Transplantation and Clinical Regeneration in [place], [place] [address] [place] [address] Jessica Rousseau M.B.B.S. [address] [place] [phone] documented as of this encounter Visit Diagnoses Not on filedocumented in this encounter Additional Health Concerns Infection Onset Date Last Indicated Resolved Time Protective Environment 03/02/2023 03/02/2023 Assessment Noted Time PHQ-9 Depression Total Score: 2 12/10/19 25 2:46 PM LOCKSMITH APPRENTICE documented as of this encounter Care Teams Pediatric Clinical Dietician Relationship Specialty Start Date End Date Renzo Andres M.D. [address] [place] [phone] PCP - General Family Medicine 04/25/23 documented as of this encounter
--- OUTSIDE RECORDS SUMMARY | 2025-06-23 10:00 | XMS_ITS | Encounter Summary ---
Author Organization [facility] Address [address] [place] [id number] Care Team Providers Care Grain Merchandising Manager Name Role Phone Renzo Andres M.D. Primary Care Provider Reason for Referral * Transplant (Routine) - Closed Specialty Diagnoses / Procedures Referred By Contac t Referred To Contact Transplant Jessica Rousseau M.B.B.S. [address] [place] [phone] Phone: tel: fax: [facility] Referral ID Status Reason Start Date Expiration Date Visits Re quested Visits Authorized [id number] Closed 06/23/2025 12/23/2026 1 1 Scheduling Instructions Please schedule with BMT MD for 30 minutes. Patient type: Allo Over 100 Visit Type: Return Scheduling Preferences Option 1: MD/RN no joint visit Option 2: MD/RN no joint visit Other Scheduling Instructions:please schedule with DR Rousseau next week when she is avail Primary MD:DR Rousseau RN Team: Rst Bmt Team Two Orange * Transplant (Routine) - Closed Specialty Diagnoses / Procedures Referred By Contac t Referred To Contact Transplant Jessica Rousseau M.B.B.S. [address] [place] [phone] Phone: tel: fax: [facility] Referral ID Status Reason Start Date Expiration Date Visits Re quested Visits Authorized [id number] Closed 06/23/2025 12/23/2026 1 1 Scheduling Instructions Please schedule with RNCC for 30 min Patient type: Allo Over 100 Visit Type: Return Scheduling Preferences Option 1: MD/RN no joint visit Option 2: MD/RN no joint visit Other Scheduling Instructions:please schedule with DR Rousseau next week when she is avail Primary MD:DR Rousseau RN Team: Rst Bmt Team Two Orange Reason for Visit * Transplant (Routine) - Closed Specialty Diagnoses / Procedures Referred By Estefania t Referred To Contact Transplant Tessa Jesus APRN, C.N.P., D.N.P. [address] [place] [phone] Phone: tel: fax: [facility] Referral ID Status Reason Start Date Expiration Date Visits Re quested Visits Authorized [id number] Closed 05/20/2025 11/19/2026 1 1 Encounter Details Date Type Department Care Team (Latest Contact Info) Description 06/23/2025 10:00 AM CDT Office Visit Pedro sanchez [facility] in [place], [place] [address] [place] [phone] Jessica Rousseau M.Dayday.B.S. 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 No 06/24/2025 [facility] Utilities Answer Date Recorded In the past 12 months has e electric, gas, oil, or water company threatened to shut off services in your home? No 06/24/2025 Depression Answer Date Recor ded PHQ-9 Total Score (max 27) 2 12/10 Housing Stability Answer Date Recorded What is your living situation today? I have a [facility] place to live 06/24/2025 Education Answer Date Recorded What is the highest level of school you have completed or the highest degree you have received? Some college, no degree 04/24/2019 Comments No Sex and Gender Information Value Date Recorded Sex Assigned at Female 12/26/2018 8:37 PM SHINGLE TRIMMER Legal Sex Female 2:43 PM SHINGLE TRIMMER Gender Identity Female 12/26/2018 8:37 PM SHINGLE TRIMMER Sexual Orientation Choose not to disclose 2020 3:46 PM CDT documented as of this encounter Progress Notes * Jessica Rousseau M.B.B.S. - 06/23/2025 10:00 AM CDT SUBJECTIVE TRANSPLANT PHYSICIAN Dr. Jessica Rousseau, pager [phone]. HISTORY OF PRESENT ILLNESS Radha Martinez is a 35 y.o. female with a past medical history significant for CML who received a MUD HCT on 12/10/24. She is at [facility] today for the follow up. Day + 196 HISTORY OF PRESENT ILLNESS Please refer to multiple prior notes in EMR for complete hematologic history: Ms. Martinez is a 35 y.o. 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 At the time of diagnosis, there was grade 3 reticulin fibrosis noted. 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 The BCR-ABL1 P [...] t(9;22) metaphases. 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 06/17/2024: feeling quite symptomatic since the [...] prophylaxis: Ursodiol 600 mg two times daily. [facility]: [id number] [...] 06/01. Biopsies negative for GVHD Interval History 06/24/2025 Ms. Martinez's chest pain has resolved with cessation of prednisone. Her most bothersome symptom isongoing left infraumbilical sharp, pain extending upward. She continues to have nausea and dry heaves with dysgeusia, denies vomiting. She does have intermittent diarrhea, along with constipation with opioids. She has loose stools approximately weekly with 3 episodes of clumpy stools in a day before spontaneously resolving. She feels that these are related to sudden kind of food that she takes. She is on a Butrans patch with the resolution of her leg pain. She does experience anxiety which she did treat with lorazepam, but was told that she could not take this while on Butrans. We reviewed her ongoing situation with pain, ED visits, medication changes, testing that has already been done and discussing coping. She has had a thorough work up [...] Daily, Dose change 12/02/2024 budesonide (ENTOCORT EC) 3 mg, oral, Daily buprenorphine (Butrans) 5 mcg/hour 1 patch, transdermal, Weekly cholecalciferol (VITAMIN D3) 50 mcg, Daily diphenhydrAMINE (BENADRYL) 25 mg, oral, Every 6 hours PRN DULoxetine (CYMBALTA) 120 mg, oral, Daily HYDROmorphone (DILAUDID) 0.5 mg, oral, Daily PRN ibuprofen 400 mg, oral, Every 6 hours PRN lidocaine (Lidoderm) 5 % adhesive patch,medicated 1 patch, transdermal, Daily, Apply to affected area . loperamide (IMODIUM A-D) 2 mg, oral, Every [...] 4-8 mg, oral, Every 8 hours PRN penicillin V potassium (VEETIDS) 500 mg, oral, 2 times daily posaconazole (NOXAFIL) 300 mg, oral, Daily prochlorperazine (COMPAZINE) 10 mg, oral, Every 6 hours PRN sulfamethoxazole-trimethoprim (Bactrim) 400-80 mg per tablet 1 tablet, oral, Daily OBJECTIVE VITAL SIGNS There were no vitals taken for this visit. PHYSICAL EXAMINATION Physical Exam General: Patient is alert, oriented, and in no acute distress. Vitals as noted. Easily rises from her chair, gait is steady down the myers, motions or fluid. Chest: Clear to auscultation bilaterally CVS: Normal rate and rhythm Abdomen: Minimal tenderness/soreness in the left periumbilical area, no rebound or guarding, no organomegaly Bilateral lower extremity: no tenderness or swelling Skin: No rash or bruising. Head: Atraumatic. Eyes: Anicteric, KPS: 90% DIAGNOSTICS I have reviewed the recent relevant Diagnostics No results found for this or any previous visit (from the past 24 hours). 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 [id number]% donor DNA and approximately 0% recipient DNA. - Continue to check RT PCR BCR-ABL on peripheral blood every 6 weeks undetected on April 29 - Peripheral sort chimerism on 04/29: CD33 100% donor DNA and 0% recipient DNA - Last BM Bx from 02/18/25 was normal, no BCR-ABL1 detected. - BM biopsy June 15, 2025- MRD negative - We will repeat sort chimerism on her next visit # Diarrhea, resolved on 05/20 # Persistent [...] and Pantoprazole 40 mg po BID. - tapered and discontinued prednisone on Jun 20, # Esophageal /Chest pain - resolved Pain is sharp 5-7 x day , [...] had just started 40 mg daily today 17173) - monitor if chest pressure improves (this may also help the slight increase in ALT) * Echocardiogram - first evaluable to assess for pericardial effusion # GVHD Prophylaxis - Received PTCy; MMF was stopped per protocol. -Tacrolimus discontinued 04/17/2025 ACUTE GVHD (CIBMTR CRITERIA) Current Severity 06/23/2025 Skin Stage Stage 0 (No GVHD rash) Liver Stage Stage 0 (Normal bilirubin) Gut Stage Stage 0 (Diarrhea <500 mL/day) nausea Overall Grade Grade 0 (No acute GVHD) Change from previous evaluation: improved Maximum overall grade (and date): Late aGVHD: Other comments: Diagnostic tests: Treatment : Budesonide 3 mg daily Response to tt : CR [...] right eye. Wears glasses. - Followed by [facility] in [place], [place]. - Patient will notify team if any vision changes. # Blood Products # TACO - Requires infusion of platelets at a slower rate #CMV- last checked 06/03/2025- #EBV - last checked March 2025 # Disposition - 06/25/25 Echocardiogram - visit with Palliative care Later: 06/24/2025 Patient called the BMT coordinator twice regarding worsening abdominal pain. She was taking her sonto an appointment and was advised admission to the BMT [facility] service for further management of her abdominal pain. She also had vomiting since last night and loose stools. We will repeat a CT abdomen and pelvis with contrast, GPP, consult GI for colonoscopy. If infectious disease workup is negative consider starting her on prednisone 40 mg daily. Also consult Psychiatry for management of her anxiety. ATC was called and the admitting physician was notified as well. * Daniela Mercer R.N., BMT-CN - 06/23/2025 10:00 AM CDT S/P Allo Transplant for Transplant Bone Marrow Allogeneic (HCC) [Z94.81]. Day 0 = 12/10/2024 (195 days). Please see previous notes regarding patient's history. Patient seen in conjunction with DR Rousseau, Please see their note for a full systems review. KPS: 80 Since last evaluation, the patient reports the following: General Symptoms: She continues to struggle with taste, nausea, abdomen pain and loose stools 3 times a day. Her chest pain and leg pain is better. She stopped her pred as directed on Wednesday 06/20. Plan of care discussed with provider: Patient's transition from Hospital Based Outpatient to Outpatient BMT was completed on 12/31/2024. New medication changes with this visit: Start Budesonide 3 mg daily, use imodium for loose stools, try the Lidocaine patch for abdominal pain Pending Results: BCR Abl Interim Plans: Palliative care visit on 06/24/25 and 06/26. Psych visit on 07/15/25 Next set of immunizations scheduled for 08/12/25 her echo is being moved to a time when she comes to [place] and her ct angio was canceled. Lab Plan: with visits at this time Future BMT Appointments: will return in one week to see DR Rousseau Per Dr. Rousseau, we will continue to check BCR/ABL p210 on peripheral blood every 6 weeks, completed again on 06/23 will need to address how often All questions answered, patient verbalized understanding of plan, patient will call with any additional questions or concerns prior to return appointment. Evangelina Mercer R.N., BMT-CN documented in this encounter Plan of Treatment Upcoming Encounters Date Type Department Care Team (Late st Contact Info) Description 07/21/2025 11:00 AM CDT Telemedicine Department of Palliative Care in [place], [place] [address] [place] [phone] Meghan Osorio M.D. [address] [place] [phone] 07/22/2025 8:40 AM CDT Lab Department of Laboratory Medicine and Pathology, [facility], in [place], [place] [address] [place] [phone] Becky Hernandez APRN, C.N.P., D.N.P. [address] [place] [phone] 07/22/2025 9:30 AM CDT Office Visit Pedro sanchez [facility] in [place], [place] [address] [place] [phone] Becky Hernandez APRN, C.NLuigi., D.N.P. [address] [place] [phone] 07/30/2025 2:00 PM CDT Appointment Division of Gastroenterology in [place], [place] [address] [place] [phone] Derrick Cruz Jr., M.D., M.S. [address] [place] [phone] 08/11/2025 9:00 AM CDT Nurse Only Section of Infectious Diseases in [place], [place] [address] [place] [phone] Jessica Rousseau M.B.B.S. [address] [place] [phone] 08/11/2025 1:00 PM CDT Clinical Support Department of Palliative Care in [place], [place] [address] [place] [phone] Uma Aly APRN, C.NLuigi., M.S.N. [address] [place] [phone] 08/13/2025 10:00 AM CDT Lab Department of Laboratory Medicine and Pathology, [facility], in [place], [place] [address] [place] [phone] Jessica Rousseau M.B.B.S. [address] [place] [phone] 08/13/2025 10:30 AM CDT [facility] [place], [place] [address] [place] [phone] Jessica Rousseau M.B.B.S. [address] [place] [phone] 08/13/2025 11:00 AM CDT Nurse Only [facility] in [place], [place] [address] [place] [address] Jessica Rousseau M.B.B.S. [address] [place] [phone] 08/13/2025 11:30 AM CDT [facility] in [place], [place] [address] [place] [phone] Jessica Rousseau M.B.B.S. [address] [place] [phone] 09/25/2025 10:30 AM SHINGLE TRIMMER Telemedicine [facility] Transplantation and Clinical Regeneration in [place], [place] [address] [place] [address] Jessica Rousseau M.B.B.S. [address] [place] [phone] Scheduled Referrals Name Type Priority Associated Diagnoses Order Schedule Transplant Bone marrow office visit (clinic) Outpatient Referral Routine Expected: 06/30/2025 (Approximate), Expires: 09/28/2025 Transplant Bone marrow office visit (clinic) Outpatient Referral Routine Expected: 06/30/2025 (Approximate), Expires: 09/28/2025 documented as of this encounter Results * LD (Lactate Dehydrogenase) (06/30/2025 10:41 AM CDT) [facility] LD 146 122 - 222 U/L 06/30/2025 11:58 AM CDT DTL Blood (Blood, Venous) 06/30/2025 10:41 AM CDT 06/30/2025 11:03 AM CDT us Jessica DowlingB.S. LAB BLOOD NON ADD-ON Final Result Performing Organization Address [facility]/ZIP Co de Phone Number [facility] [place] [address] [place] [address] * Sodium (06/30/2025 10:41 AM CDT) [facility] Sodium, S 141 135 - 145 mmol/L 06/30/2025 11:25 AM CDT DT Blood (Blood, Venous) 06/30/2025 10:41 AM CDT 06/30/2025 10:51 AM CDT Jessica DowlingB.S. LAB BLOOD ADD-ON Final Res ult Performing Organization Address City/[facility]/ZIP Co de Phone Number [facility] [place] [address] [place] [address] * Potassium (06/30/2025 10:41 AM CDT) [facility] Potassium, S 3.6 3.6 - 5.2 mmol/L 06/30/2025 11:25 AM CDT DTL Blood (Blood, Venous) 06/30/2025 10:41 AM CDT 06/30/2025 10:51 AM CDT Jessica DowlingB.S. LAB BLOOD ADD-ON Final Res ult [facility] [place] [address] [place] [address] * Magnesium (06/30/2025 10:41 AM CDT) Magnesium, S 2.0 1.7 - 2.3 mg/dL 06/30/2025 11:25 AM CDT DTL Blood (Blood, Venous) 06/30/2025 10:41 AM CDT 06/30/2025 10:51 AM CDT Jessica DowlingB.S. LAB BLOOD ADD-ON Final Res ult Performing Organization Address City/[facility]/ZIP Co de Phone Number [facility] [place] [address] [facility] 200 [place] [address] * (ABNORMAL) Glucose, Fasting (06/30/2025 10:41 AM CDT) Glucose, P 164(H) 70 - 100 mg/dL 06/30/2025 11:26 AM CDT DTL Last Intake 11 hr 06/30/2025 10:51 AM CDT DTL Blood (Blood, Venous) 06/30/2025 10:41 AM CDT 06/30/2025 10:51 AM CDT Jessica DowlingB.S. LAB BLOOD NON ADD-ON Final Result [facility] [place] [address] [place] [address] * Creatinine with Estimated GFR (06/30/2025 10:41 AM CDT) Creatinine 0.84 0.59 - 1.04 mg/dL 06/30/2025 11:25 AM CDT DTL Estimated GFR (eGFR) >90 >=60 mL/min/BSA 06/30/2025 11:25 AM CDT DTL Comment: Estimated GFR calculated using the 2020 CKD_EPI creatinine equation. Blood (Blood, Venous) 06/30/2025 10:41 AM CDT 06/30/2025 10:51 AM CDT us Jessica Barnes LAB BLOOD ADD-ON Final Res ult [facility] [place] [address] [place] [address], [facility] [place] [address] [place] [address] * (ABNORMAL) CBC no call back, reflex T/S HGB <8 (06/30/2025 10:41 AM CDT) Hemoglobin 12.1 11.6 - 15.0 g/dL 06/30/2025 11:28 AM CDT DTL Hematocrit 37.1 35.5 - 44.9 % 06/30/2025 11:28 AM CDT DTL Erythrocytes 4.46 3.92 - 5.13 x10(12)/L 06/30/2025 11:28 AM CDT DTL MCV 83.2 78.2 - 97.9 fL 06/30/2025 11:28 AM CDT DTL RBC Distrib Width 14.4 12.2 - 16.1 % 06/30/2025 11:28 AM CDT DTL Platelet Count 194 157 - 371 x10(9)/L 06/30/2025 11:28 AM CDT DTL Leukocytes 3.7 3.4 - 9.6 x10(9)/L 06/30/2025 11:28 AM CDT DTL Neutrophils 2.66 1.56 - 6.45 x10(9)/L 06/30/2025 11:28 AM CDT DHPM Lymphocytes 0.79(L) 0.95 - 3.07 x10(9)/L 06/30/2025 11:28 AM CDT DTL Monocytes 0.18(L) 0.26 - 0.81 x10(9)/L 06/30/2025 11:28 AM CDT DTL Eosinophils 0.07 0.03 - 0.48 x10(9)/L 06/30/2025 11:28 AM CDT DTL Basophils 0.03 0.01 - 0.08 x10(9)/L 06/30/2025 11:28 AM CDT DTL Blood (Blood, Venous) 06/30/2025 10:41 AM CDT 06/30/2025 10:53 AM CDT Jessica DowlingB.S. LAB BLOOD NON ADD-ON Final Result [facility] [place] [address] [place] [address] * Calcium, Total (06/30/2025 10:41 AM CDT) Calcium, Total, S 9.3 8.6 - 10.0 mg/dL 06/30/2025 11:25 AM CDT DTL Blood (Blood, Venous) 06/30/2025 10:41 AM CDT 06/30/2025 10:51 AM CDT Jessica DowlingB.S. LAB BLOOD ADD-ON Final Res ult [facility] [place] 200 [place], [place] [address] [place] [address] * BUN (Blood Urea Nitrogen) (06/30/2025 10:41 AM CDT) BUN (Blood Urea Nitrogen), S 12 6 - 21 mg/dL 06/30/2025 11:25 AM CDT DTL Blood (Blood, Venous) 06/30/2025 10:41 AM CDT 06/30/2025 10:51 AM CDT Jessica LiconaS. LAB BLOOD ADD-ON Final Res ult Performing Organization Address City/[facility]/ZIP Co de Phone Number [facility] [place] [address] [place] [address] * ALT (Alanine Aminotransferase) (06/30/2025 10:41 AM CDT) Alanine Aminotransferase (ALT), S 32 7 - 45 U/L 06/30/2025 11:25 AM CDT DTL Blood (Blood, Venous) 06/30/2025 10:41 AM CDT 06/30/2025 10:51 AM CDT Jessica Bustillos.S. LAB BLOOD ADD-ON Final Res ult Performing Organization Address City/[facility]/ZIP Co de Phone Number [facility] [place] [address] [place] [address] * Alkaline Phosphatase (06/30/2025 10:41 AM CDT) Alkaline Phosphatase, S 97 35 - 104 U/L 06/30/2025 11:25 AM CDT DTL Blood (Blood, Venous) 06/30/2025 10:41 AM CDT 06/30/2025 10:51 AM CDT Jessica LiconaS. LAB BLOOD ADD-ON Final Res ult [facility] [place] [address] [place] [address] * Albumin (06/30/2025 10:41 AM CDT) Albumin, S 4.3 3.5 - 5.0 g/dL 06/30/2025 11:25 AM CDT DTL Blood (Blood, Venous) 06/30/2025 10:41 AM CDT 06/30/2025 10:51 AM CDT Jessica Bustillos.S. LAB BLOOD ADD-ON Final Res ult Performing Organization Address [facility] Co de Phone Number [facility] [place] [address] DTL [facility] 200 [place] [address] * Bilirubin, Total (06/30/2025 10:40 AM CDT) Bilirubin, Total, P 0.2 0.0 - 1.2 mg/dL 06/30/2025 11:22 AM CDT METH Blood (Blood, Venous) 06/30/2025 10:40 AM CDT 06/30/2025 10:51 AM CDT Jessica DowlingB.S. LAB BLOOD ADD-ON Final Res ult Performing Organization Address [facility] Co de Phone Number [facility] [place] [address] METH [facility] [address] [place] [address] * AST (Aspartate Aminotransferase) (06/30/2025 10:40 AM CDT) Aspartate Aminotransferase (AST), P 21 8 - 43 U/L 06/30/2025 11:15 AM CDT METH Blood (Blood, Venous) 06/30/2025 10:40 AM CDT 06/30/2025 10:51 AM CDT Jessica Bustillos.S. 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 [address] [place] [phone] PCP - General Family Medicine 04/25/23 documented as of this encounter
--- OUTSIDE RECORDS SUMMARY | 2025-06-24 12:30 | XMS_ITS | Encounter Summary ---
Author Organization [facility] Address [address] [place] [address] Care Team Providers Care Plate Inspector Name Role Phone Renzo Andres M.D. Primary Care Provider Reason for Visit * Reason Onset Date Comments Pre-visit Intake 06/24/2025 Encounter Details Date Type Department Care Team (Latest Contact Info) Description 06/24/2025 12:30 PM CDT Clinical Communication Virtual Review in [place], [place] 200 [place] [address] Pre-visit Intake Social History Tobacco Use Types Packs/Day Years [...] Assigned at Female 12/26/2018 8:37 PM BUILDING PRESSURE WASHER Legal Sex Female 2:43 PM BUILDING PRESSURE WASHER Gender Identity Female 12/26/2018 8:37 PM BUILDING PRESSURE WASHER Sexual Orientation Choose not to disclose 2020 3:46 PM CDT documented as of this encounter Plan of Treatment Upcoming Encounters Date Type Department Care Team (Late st Contact Info) Description 07/21/2025 11:00 AM CDT Telemedicine Department of Palliative Care in [place], [place] [address] [place] [phone] Meghan Osorio M.D. [address] [place] [phone] 07/22/2025 8:40 AM CDT Lab Department of Laboratory Medicine and Pathology, [facility] in [place], [place] [address] [place] [address] Becky Hrenandez APRN, C.N.P., D.N.P. [address] [place] [phone] 07/22/2025 9:30 AM CDT Office Visit [facility] in [place], [place] [address] [place] [phone] Becky Hernandez APRN, C.N.P., D.N.P. [address] [place] [phone] 07/30/2025 2:00 PM CDT Appointment Division of Gastroenterology in [place], [place] [address] [place] [phone] Derrick Cruz Jr., M.D., M.S. [address] [place] [phone] 08/11/2025 9:00 AM CDT Nurse Only Section of Infectious Diseases in [place], [place] [address] [place] [phone] Jessica Rousseau M.B.B.S. [address] [place] [phone] 08/11/2025 1:00 PM CDT Clinical Support Department of Palliative Care in [place], [place] [address] [place] [phone] Uma Aly APRN, C.N.P., M.S.N. [address] [place] [phone] 08/13/2025 10:00 AM CDT Lab Department of Laboratory Medicine and Pathology, [facility], in [place], [place] [address] [place] [address] Jessica Rousseau M.B.B.S. [address] [place] [phone] 08/13/2025 10:30 AM CDT Office [facility] in [place], [place] [address] [place] [address] Jessica Rousseau M.B.B.S. [address] [place] [phone] 08/13/2025 11:00 AM CDT Nurse Only [facility] Transplantation and Clinical Regeneration in [place], [place] [address] [place] [address] Jessica Rousseau M.B.B.S. [address] [place] [phone] 08/13/2025 11:30 AM CDT Office Visit [facility] Transplantation and Clinical Regeneration in [place], [place] [address] [place] [address] Jessica Rousseau M.B.B.S. [address] [place] [phone] 09/25/2025 10:30 AM BUILDING PRESSURE WASHER Telemedicine [facility] Transplantation and Clinical Regeneration in [place], [place] [address] [place] [address] Jessica Rousseau M.B.B.S. [address] [place] [phone] documented as of this encounter Visit Diagnoses Not on filedocumented in this encounter Additional Health Concerns Infection Onset Date Last Indicated Resolved Time Protective Environment 03/02/2023 03/02/2023 Assessment Noted Time PHQ-9 Depression Total Score: 2 12/10/19 25 2:46 PM BUILDING PRESSURE WASHER documented as of this encounter Care Teams Plate Inspector Relationship Specialty Start Date End Date Renzo Andres M.D. NPAmanda: [phone] [address] [place] [address] [place] [phone] PCP - General Family Medicine 04/25/23 documented as of this encounter
--- OUTSIDE RECORDS SUMMARY | 2025-06-24 14:59 | XMS_ITS | Encounter Summary ---
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 Procedure: Flexible Sigmoidoscopy Providers: Tamara Rashid MD Referring Provider: Mckenzie Melvin Pre-op Diagnoses: Abdominal pain, Exclusion of hrzfy-bdjjuu-vtgf disease, Diarrhea Recommendation: - Return patient to [...] Note Initiated On: 06/26/2025 10:17 AM us Satnam Ochoa APRN.N.P., D.N.P., M.S.N. GI PROCEDURE ORDERABLES Final Result [facility] NA * Upper GI Endoscopy (06/26/2025 10:17 AM CDT) 06/26/2025 10:1 7 AM CDT Impressions [facility] - 06/26/2025 11:54 AM CDT Post-op [...] out GVHD and CMV as requested. Narrative [facility] - 06/26/2025 11:54 AM CDT Gonda 2 GI Patient Name: Radha Martinez Date of : 1990 Age: 35 Procedure Date: 06/26/2025 Procedure: Upper GI endoscopy Providers: Tamara Rashid MD Referring Provider: Mckenzie Melvin Pre-op Diagnoses: Exclusion of efhpq-mfttdn-kxfc disease, Diarrhea, Nausea with vomiting Recommendation: - [...] 0 Note Initiated On: 06/26/2025 10:17 AM Mckenzie Melvin APRN, C.N.P., D.N.P. GI PROCEDU RE ORDERABLES Final Result Performing Organization Address [facility] de Phone Number [facility] NA * Prothrombin Time (PT) (06/26/2025 5:24 [...] 06/26/2025 5:34 AM CDT us Racquel Candelario APRN, C.N.P. LAB BLOOD ADD-ON Fin al Result Performing Organization Address [facility] Co de Phone Number [facility] [address] [place] [address], [facility] DTL [facility] [address] [place] [address] * (ABNORMAL) CBC no call back, reflex T/S HGB <8 (06/26/2025 5:24 AM CDT) [facility] Signature Hemoglobin 11.1(L) 11.6 - 15.0 g/dL 06/26/2025 [...] C.N.P. LAB BLOOD NON ADD-ON Final Result [facility] [address] [place] [address], [place] DTL [facility] [address] [place] [address] [facility] [address] [place] [address] * (ABNORMAL) Comprehensive Metabolic Panel (06/26/2025 5:24 AM CDT) [facility] Potassium, S 4.6 3.6 - 5.2 mmol/L [...] C.N.P. LAB BLOOD ADD-ON Fin al Result [facility] [address] [place] [address], [facility] DTL [facility] [address] [place] [address] * US Pelvis Transvaginal and Transabdominal (06/25/2025 [...] None. Findings discussed with Aditi Candelario APRN, PORTER LUGGAGE pager ([phone]) by Dr. Mcelroy 06/25/2025 at 2:09 PM. Procedure Note Marta Mcelroy M.D. - 06/25/2025 EXAM: US PELVIS TRANSVAGINAL AND TRANSABDOMINAL HISTORY: 35-year-old female with suprapubic/lower quadrant discomfort [id number]. COMPARISON: CT abdomen and pelvis 06/24/2025 TECHNIQUE: [...] None. Findings discussed with Aditi Candelario APRN, PORTER LUGGAGE pager ([phone]) by Dr. Mcelroy06/25/2025 at 2:09 PM. IMPRESSION: [...] per leftventricular function protocol. Last full echocardiogram myotsieue49/18/2024. LEFT VENTRICLE:Normal left ventricular chamber size. Abnormal [...] the complete report, see the Order-Level Documents. us Mckenzie Melvin APRN, C.N.P., D.N.P. CV ECHO CA OCEDURES Final Result * hCG (Human Chorionic Gonadotropin), Quantitative, (06/25/2025 12:35 AM CDT) HCG, Quantitative, , S <0.5 <5 IU/L 06/25/2025 9:57 AM CDT DTL Blood (Blood, Venous) 06/25/2025 12:35 AM CDT 06/25/2025 8:35 AM CDT Racquel Candelario APRN C.NKatalinaPKatalina LAB BLOOD ADD-ON Fin al Result [facility] [address] [place] [address], [facility] DTL [facility] [address] [place] [address] * Chimerism Transplant Sorted Cells (06/25/2025 12:35 AM CDT) [facility] Specimen Type Peripheral blood 06/29 4:34 PM CDT DTL Interpretation Peripheral blood, chimerism analysis: CD3-positive T-cells: The CD3-positive fraction contains approximately 90% donor DNA and approximately 10% recipient DNA. NQ02-khapnemi myeloid cells: The LH17-jnkzkadz fraction contains approximately 100% donor DNA and [...] purity of 95% or greater. Markers analyzed: [id number], U2Q2550, FGA, SE33, vWA, D21S11, [id number], F92L5955, Q14C197, D18S51, N1N883, O8S5917, CSF1PO, Y3T945, F39S108, S92W649, TPOX, B79T504, Z5M119 and N8J3164 06/29/2025 4:34 PM CDT DTL Comment: ----ADDITIONAL INFORMATION---- Method summary - Chimerism: Genomic DNA was extracted and the specimen evaluated for the percentages of donor and recipient DNA using a PCR-based method that amplifies several highly polymorphic short tandem repeats (see [facility] Interpretive Handbook for method details). This test was developed and its performance characteristics determined by [facility] in a manner consistent with CLIA requirements. This test has not been cleared or approved by the U.S. Food and Drug Administration. Blood (Blood, Peripheral Draw) 06/25/2025 12:35 AM CDT 06/25/2025 6:57 AM CDT Mckenzie Melvin APRN, C.N.P., D.N.P. LAB GENETI C TESTING Final Result Performing Organization Address [facility]/ZIP Co de Phone Number [facility] [address] [place] [address] * Phosphorus Inorganic (06/25/2025 12:35 AM CDT) Phosphorus (Inorganic), S 4.1 2.5 - 4.5 mg/dL 06/25/2025 1:31 AM CDT DTL Blood (Blood, Venous) 06/25/2025 12:35 AM CDT 06/25/2025 12:58 AM CDT Mckenzie Melvin APRN C.N.P., D.N.P. LAB BLOOD ADD-ON Final Result Performing Organization Address City/[facility]/ZIP Co de Phone Number [facility] [address] [place] [address] * Magnesium (06/25/2025 12:35 AM CDT) Magnesium, S 2.3 1.7 - 2.3 mg/dL 06/25/2025 1:31 AM CDT DT Blood (Blood, Venous) 06/25/2025 12:35 AM CDT 06/25/2025 12:58 AM CDT us Mckenzie Melvin APRN, C.N.P., D.N.P. LAB BLOOD ADD-ON Final Result [facility] [address] [place] [address], [place] DTL [facility] [address] [place] [address] * (ABNORMAL) Comprehensive Metabolic Panel (06/25/2025 12:35 AM CDT) [facility] Potassium, S 4.9 3.6 - 5.2 mmol/L [...] C.N.P., D.N.P. LAB BLOOD ADD-ON Final Result [facility] [address] [place] [address], [facility] [address] [place] [address] * (ABNORMAL) CBC with Differential, Blood (06/25/2025 [...] C.N.P., D.N.P. LAB BLOOD ADD-ON Final Result [facility] [address] [place] [address], [facility] DTL [facility] [address] [place] [address] DHPM [facility] [address] [place] [address] * CT Chest with IV Contrast (06/24/2025 [...] have resolved. Mckenzie Melvin APRN, C.N.P., D.N.P. [facility] CT PRO CEDURES Final Result * CT [...] Previous groundglass opacities from 06/05/2025 have resolved. us Mckenzie Melvin APRN, C.N.P., DeniseN.P. IMG CT PRO CEDURES Final Result documented [...] Given 06/26/2025 7:18 AM CDT 40 mg [id number] hle-IePy-UEo-asb-C kit 1,000 mL (MoviPrep) 1,000 mL, oral, [...] Given 06/25/2025 8:35 PM CDT 1,000 mL [id number] mom-HpPf-SZs-asb-C kit 1,000 mL (MoviPrep) 1,000 mL, oral, [...] bedtime, First dose on Sun06/24/25 at 2100 2018 (Given - Provider: Carmen Rivas) 2105 (Given - Provider: Caryn Salazar RFritz) pantoprazole DR tablet 40 mg (Protonix) 40 mg, oral, 2 times daily before morning and evening meals, First dose on Sun06/24/25 at 1745, Swallow whole. Do NOT crush, chew, or split tablet. 0601 (Given - Provider: Rosy Bhagat, R.N.)1606 (Given - Provider: Tara Summers R.N.) 0718 (Given - Provider: Tara Summers R.N. - Comment: Pt NPO for procedure)1638 (Given - Provider: Seferino Tamayo RKatalinaNKatalina) 0648 (Given - Provider: Caryn Salazar RFritz) hlu0789-cqe bau-SoCx-ADy-asb-C kit 1,000 mL (MoviPrep) (COMPLETED)(Linked Group 1) [...] 2034 (Given - Provider: Jaclyn Robertson R.N.) pcn1005-osa vhq-AcGu-QZh-asb-C kit 1,000 mL (MoviPrep) (COMPLETED)(Linked Group 1) [...] medical 0801 (Given - Provider: Tara Summers RHelio.)2018 (Given - Provider: Carmen Rivas) 0859 (Given - Provider: Tara Summers RKatalinaN.)2103 (Given - Provider: Caryn Salazar RKatalinaNKatalina) 0833 (Given - Provider: Grisel Heath RKatalinaN.) posaconazole DR tablet 300 mg (NoxafiL) 300 mg, oral, Daily, First dose on Sun06/25/25 at 0900, Swallow whole. Do NOT crush, chew, or split tablet., Drug Monitoring Program: Pharmacist to adjust medication dosing based on indication and drug clearance factors., Indications: Prophylaxis, medical 0801 (Given - Provider: Tara Summers RHelio.) 0859 (Given - Provider: Tara Summers R.N.) 0833 (Given - Provider: Grisel Heath RKatalinaNKatalina) sennosides-docusate sodium 8.6-50 mg per tablet 1 tablet (Senokot-S) 1 tablet, oral, 2 times daily, First dose on Sun06/26/25 at 1400 1423 (Not Given - Provider: Seferino Tamayo R.N. - Reason: Order parameters not met - Comment: patient having acute onset diarrhea)2116 (Not Given - Provider: Caryn Salazar R.N. [...] 1 tablet, oral, Daily, First dose on Tigist 06/25/25 at 0900, Drug Monitoring Program: Pharmacist [...] Provider: Tara Summers R.N.)1326 (Given - Provider: Vickie SinghNKatalina) 0532 (Given - Provider: Carmen Rivas)2104 (Given - Provider: Caryn Salazar R.N.) 0211 (Given - Provider: Caryn Salazar R.N.) hydrOXYzine tablet 25 mg (Atarax) 25 mg, oral, Every 6 hours PRN, anxiety, Starting on Sun06/25/25 at 1513 0211 (Given - Provider: Caryn [...] Carmen Rivas) 0015 (Given - Provider: Caryn J Blohm, R.N.) naloxone injection 0.4 mg (Narcan) 0.4 [...] % injection Linked Groups Order Group 1: [id number] vex-XhNj-YHt-asb-C kit 1,000 mL (MoviPrep) (COMPLETED)Jump to med [...] use for the second dose. Followed by sak0997-uxt xyp-BaLq-MPt-asb-C kit 1,000 mL (MoviPrep) (COMPLETED)Jump to med [...] Total Score: 2 12/10/19 25 2:46 PM WELD INSPECTOR documented as of this encounter Care Teams Supervisor Hard Candy Relationship Specialty Start Date End Date Renzo Andres M.D. [address] [place] [phone] PCP - General Family Medicine 04/25/23 documented as of this encounter
--- OUTSIDE RECORDS SUMMARY | 2025-06-26 10:20 | XMS_ITS | Encounter Summary ---
Author Organization [facility] Address [address] [place] [address] Care Team Providers Care Office Support Name Role Phone Renzo Andres M.D. Primary [...] things needed for daily living? No 06/24/2025 [facility] Utilities Answer Date Recorded In the past 12 months has th [employer] electric, gas, oil, or water company threatened to shut off services in your home? No 06/24/2025 Depression Answer Date Recor ded PHQ-9 Total Score (max 27) 2 12/10 Housing Stability Answer Date Recorded What is your living situation today? I have a [facility] place to live 06/24/2025 Education Answer Date Recorded What is the highest level of school you have completed or the highest degree you have received? Some college, no degree 04/24/2019 Comments No Sex and Gender Information Value Date Recorded Sex Assigned at Female 12/26/2018 8:37 PM MEDIA CENTER ASSISTANT Legal Sex Female 2:43 PM MEDIA CENTER ASSISTANT Gender Identity Female 12/26/2018 8:37 PM MEDIA CENTER ASSISTANT Sexual Orientation Choose not to disclose 2020 3:46 PM CDT documented as of this encounter Plan of Treatment Upcoming Encounters Date Type Department Care Team (Late st Contact Info) Description 07/21/2025 11:00 AM CDT Telemedicine Department of Palliative Care in [place], [place] [address] [place] [phone] Meghan Osorio M.D. [address] [place] [phone] 07/22/2025 8:40 AM CDT Lab Department of Laboratory Medicine and Pathology, [facility], in [place], [place] [address] [place] [phone] Becky Hernandez APRN, C.N.P., D.N.P. [address] [place] [phone] 07/22/2025 9:30 AM CDT Office Visit Pedro Aravind [facility] for Transplantation and Clinical Regeneration in [place], [place] [address] [place] [phone] Becky Hernandez APRN, C.N.P., D.N.P. [address] [place] [phone] 07/30/2025 2:00 PM CDT Appointment Division of Gastroenterology in [place], [place] [address] [place] [phone] Derrick Cruz Jr., M.D., M.S. [address] [place] [phone] 08/11/2025 9:00 AM CDT Nurse Only Section of Infectious Diseases in [place], [place] [address] [place] [phone] Jessica Rousseau M.B.B.S. [address] [place] [phone] 08/11/2025 1:00 PM CDT Clinical Support Department of Palliative Care in [place], [place] [address] [place] [address] Uma Aly APRN, C.N.P., M.S.N. [address] [place] [phone] 08/13/2025 10:00 AM CDT Lab Department of Laboratory Medicine and Pathology, [facility], in [place], [place] [address] [place] [phone] Jessica Rousseau M.B.B.S. [address] [place] [phone] 08/13/2025 10:30 AM CDT [facility] in [place], [place] [address] [place] [address] Jessica Rousseau M.B.B.S. [address] [place] [phone] 08/13/2025 11:00 AM CDT Nurse Only [facility] in [place], [place] [address] [place] [phone] Jessica Rousseau M.B.B.S. [address] [place] [phone] 08/13/2025 11:30 AM CDT Office Visit Pedro Lanza laura [facility] Trans[facility] and Clinical Regeneration in [place], [place] [address] [place] [phone] Jessica Rousseau M.B.B.S. [address] [place] [phone] 09/25/2025 10:30 AM MEDIA CENTER ASSISTANT Telemedicine [facility] Trans[facility] Clinical Regeneration in [place], [place] [address] [place] [phone] Jessica Rousseau M.B.B.S. [address] [place] [phone] documented as of this encounter Procedures Procedure [...] Total Score: 2 12/10/19 25 2:46 PM MEDIA CENTER ASSISTANT documented as of this encounter Care Teams Office Support Relationship Specialty Start Date End Date Renzo Andres M.D. [address] [place] [phone] PCP - General Family Medicine 04/25/23 documented as of this encounter
--- OUTSIDE RECORDS SUMMARY | 2025-06-26 10:25 | XMS_ITS | Encounter Summary ---
Author Organization [facility] Address [address] [place] [address] Care Team Providers Care Manager Commercial Real Estate Name Role Phone Renzo Andres M.D. Primary Care Provider Encounter Details Date Type Department Care Team (Latest Contact Info) Description 06/26/2025 10:25 AM CDT Ancillary Procedure Department of Gastroenterology [...] for daily living? No 06/24/2025 [facility] Utilities Answer Date Recorded In the past 12 months has th [employer] electric, gas, oil, or water company threatened to shut off services in your home? No 06/24/2025 Depression Answer Date Recor ded PHQ-9 Total Score (max 27) 2 12/10 Housing Stability Answer Date Recorded What is your living situation today? I have a [facility] place to live 06/24/2025 Education Answer Date Recorded What is the highest level of school you have completed or the highest degree you have received? Some college, no degree 04/24/2019 Comments No Sex and Gender Information Value Date Recorded Sex Assigned at Female 12/26/2018 8:37 PM PHARMACY TECHNICIAN PER DIEM Legal Sex Female 2:43 PM PHARMACY TECHNICIAN PER DIEM Gender Identity Female 12/26/2018 8:37 PM PHARMACY TECHNICIAN PER DIEM Sexual Orientation Choose not to disclose 2020 3:46 PM CDT documented as of this encounter Plan of Treatment Upcoming Encounters Date Type Department Care Team (Late st Contact Info) Description 07/21/2025 11:00 AM CDT Telemedicine Department of Palliative Care in [place], [place] [address] [place] [phone] Meghan Osorio M.D. [address] [place] [phone] 07/22/2025 8:40 AM CDT Lab Department of Laboratory Medicine and Pathology, [facility], in [place], [place] [address] [place] [address] Becky Hernandez APRN, C.N.P., D.N.P. [address] [place] [phone] 07/22/2025 9:30 AM CDT Office Visit Pedro Aravind [facility] [place] for Transplantation and Clinical Regeneration in [place], [place] [address] [place] [address] Becky Hernandez APRN, C.N.P., D.N.P. [address] [place] [phone] 07/30/2025 2:00 PM CDT Appointment Division of Gastroenterology in [place], [place] [address] [place] [phone] Derrick Cruz Jr., M.D., M.S. [address] [place] [phone] 08/11/2025 9:00 AM CDT Nurse Only Section of Infectious Diseases in [place], [place] [address] [place] [phone] Jessica Rousseau M.B.B.S. [address] [place] [phone] 08/11/2025 1:00 PM CDT Clinical Support Department of Palliative Care in [place], [place] [address] [place] [address] Uma Aly APRN, C.N.P., M.S.N. [address] [place] [phone] 08/13/2025 10:00 AM CDT Lab Department of Laboratory Medicine and Pathology, [facility], in [place], [place] [address] [place] [address] Jessica Rousseau M.B.B.S. [address] [place] [phone] 08/13/2025 10:30 AM CDT [facility] in [place], [place] [address] [place] [address] Jessica Rousseau M.B.B.S. [address] [place] [phone] 08/13/2025 11:00 AM CDT Nurse Only Pedro Myla laura [facility] Transplantation and Clinical Regeneration in [place], [place] [address] [place] [phone] Jessica Rousseau M.B.B.S. [address] [place] [phone] 08/13/2025 11:30 AM CDT Office Visit Pedro Lanza laura [facility] Transplantation and Clinical Regeneration in [place], [place] [address] [place] [phone] Jessica Rousseau M.B.B.S. [address] [place] [phone] 09/25/2025 10:30 AM PHARMACY TECHNICIAN PER DIEM Telemedicine [facility] Transplantation and Clinical Regeneration in [place], [place] [address] [place] [phone] Jessica Rousseau M.B.B.S. [address] [place] [phone] documented as of this encounter Procedures Procedure Name Priority Date/Time Associated Diagnosis Comments GASTROENTEROLOGY IMAGE EXAM Routine 06/26/2025 10:25 AM CDT documented in this encounter Results * Duodenum, Duodenal bulb Upper GI endoscopy-Gastroenterology Image Exam (06/26/2025 10:25 AM CDT) 06/26/2025 10:1 7 AM CDT [...] Total Score: 2 12/10/19 25 2:46 PM PHARMACY TECHNICIAN PER DIEM documented as of this encounter Care Teams Manager Commercial Real Estate Relationship Specialty Start Date End Date Renzo Andres M.D. [address] [place] [phone] PCP - General Family Medicine 04/25/23 documented as of this encounter
--- OUTSIDE RECORDS SUMMARY | 2025-06-26 11:10 | XMS_ITS | Encounter Summary ---
Author Organization [facility] Address [address] [place] [address] Care Team Providers Care Mixer Operator Tablets Name Role Phone Renzo Andres M.D. Primary Care Provider Encounter Details Date Type Department Care Team (Latest Contact Info) Description 06/26/2025 11:10 AM CDT Anesthesia Event Division of Gastroenterology in [place], [place] [address] [place] [phone] Satya Lozada APRN, CRNA, DNAP [address] [place] [phone] Kiara Gaines M.D. [address] [place] [phone] Anesthesia Record Procedure Summary Procedure Name Responsible [...] things needed for daily living? No 06/24/2025 [facility] Utilities Answer Date Recorded In the past 12 months has th e electric, gas, oil, or water company threatened to shut off services in your home? No 06/24/2025 Depression Answer Date Recor ded PHQ-9 Total Score (max 27) 2 12/10 Housing Stability Answer Date Recorded What is your living situation today? I have a [facility] place to live 06/24/2025 Education Answer Date Recorded What is the highest level of school you have completed or the highest degree you have received? Some college, no degree 04/24/2019 Comments No Sex and Gender Information Value Date Recorded Sex Assigned at Female 12/26/2018 8:37 PM GRAPHICS ARTIST Legal Sex Female 2:43 PM GRAPHICS ARTIST Gender Identity Female 12/26/2018 8:37 PM GRAPHICS ARTIST Sexual Orientation Choose not to disclose 2020 3:46 PM CDT documented as of this encounter OR Notes * Anesthesia Postprocedure Evaluation - Satya Lozada APRN, TANA, DNAP - 06/26/2025 11:48 AM CDT Patient: Radha Martinez Procedure Summary Date: 06/26/25 Room / Location: Division of Gastroenterology in [place], [place] Anesthesia Start: 1110 Anesthesia Stop: 1148 Procedures: EGD (ESOPHAGOGASTRODUODENOSCOPY) FLEXIBLE SIGMOIDOSCOPY Diagnosis: Scheduled Providers: Satya Lozada APRN, TANA, DNAP; Tamara Rasihd M.D. Responsible Provider: Satya Lozada APRN, CRNA, [...] FLEXIBLE SIGMOIDOSCOPY Location: Division of Gastroenterology in [place], [place] Pertinent components of the patient's history [...] with patient /legal guardian or through an abalone fisherman. The use of blood products not discussed Approval to Proceed: approved for anesthesia documented in this encounter Plan of Treatment Upcoming Encounters Date Type Department Care Team (Late st Contact Info) Description 07/21/2025 11:00 AM CDT Telemedicine Department of Palliative Care in [place], [place] [address] [place] [phone] Meghan Osorio M.D. [address] [place] [phone] 07/22/2025 8:40 AM CDT Lab Department of Laboratory Medicine and Pathology, [facility], in [place], [place] [address] [place] [phone] Becky Hernandez APRN, C.N.P., D.N.P. [address] [place] [phone] 07/22/2025 9:30 AM CDT Office Visit Pedro sanchez [facility] in [place], [place] [address] [place] [phone] Becky Hernandez APRN, C.N.P., D.N.P. [address] [place] [phone] 07/30/2025 2:00 PM CDT Appointment Division of Gastroenterology in [place], [place] [address] [place] [phone] Derrick Cruz Jr., M.D., M.S. [address] [place] [phone] 08/11/2025 9:00 AM CDT Nurse Only Section of Infectious Diseases in [place], [place] [address] [place] [phone] Jessica Rousseau M.B.B.S. [address] [place] [phone] 08/11/2025 1:00 PM CDT Clinical Support Department of Palliative Care in [place], [place] [address] [place] [phone] Uma Aly APRN, C.NLuigi., M.S.N. [address] [place] [phone] 08/13/2025 10:00 AM CDT Lab Department of Laboratory Medicine and Pathology, [facility], in [place], [place] [address] [place] [phone] Jessica Rousseau M.B.B.S. [address] [place] [phone] 08/13/2025 10:30 AM CDT [facility] [place], [place] [address] [place] [address] Jessica Rousseau M.B.B.S. [address] [place] [phone] 08/13/2025 11:00 AM CDT [facility] in [place], [place] [address] [place] [address] Jessica Rousseau M.B.B.S. [address] [place] [phone] 08/13/2025 11:30 AM CDT [facility] in [place], [place] [address] [place] [address] Jessica Rousseau M.B.B.S. [address] [place] [phone] 09/25/2025 10:30 AM GRAPHICS ARTIST Telemedicine Pedro sanchez [facility] in [place], [place] [address] [place] [address] Jessica Rousseau M.B.B.S. [address] [place] [phone] documented as of this encounter Visit Diagnoses [...] Total Score: 2 12/10/19 25 2:46 PM GRAPHICS ARTIST documented as of this encounter Care Teams Mixer Operator Tablets Relationship Specialty Start Date End Date Renzo Andres M.D. [address] [place] [phone] PCP - General Family Medicine 04/25/23 documented as of this encounter
--- OUTSIDE RECORDS SUMMARY | 2025-06-30 11:00 | XMS_ITS | Encounter Summary ---
Author Organization [facility] Address [address] [place] [address] Care Team Providers Care Electoral Officer Name Role Phone Renzo Andres M.D. 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 [address] [place] [address] Phone: tel: fax: [facility] Referral ID Status Reason Start Date Expiration Date V isits Requested Visits Authorized [id number] Authorized 06/30/2025 12/30/2026 1 1 Scheduling Instructions Please schedule with pharmacist for 30 minutes. 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 [address] [place] [phone] Phone: tel: fax: [facility] Referral ID Status Reason Start Date Expiration Date V isits Requested Visits Authorized [id number] Authorized 06/30/2025 12/30/2026 1 1 Scheduling Instructions Please schedule with BMT MD for 30 minutes. 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 [address] [place] [phone] Phone: tel: fax: [facility] Referral ID Status Reason Start Date Expiration Date V isits Requested Visits Authorized [id number] Authorized 06/30/2025 12/30/2026 1 1 Scheduling Instructions Please schedule with RNCC for 30 min Patient type: Allo Over 100 Visit Type: Return Scheduling Preferences Option 1: MD/RN no joint visit Option 2: ANUPAM/RN joint visit Other Scheduling Instructions: Primary MD: Soham RN Team: Rst Bmt Team [place] Reason for Visit * Reason Comments Nurse Visit * Transplant (Routine) - Closed Specialty Diagnoses / Procedures Referred By Contac t Referred To Contact Transplant Jessica Rousseau M.B.B.S. [address] [place] [phone] Phone: tel: fax: [facility] Referral ID Status Reason Start Date Expiration Date Visits Re quested Visits Authorized [id number] Closed 06/23/2025 12/23/2026 1 1 Encounter Details Date Type Department Care Team (Late st Contact Info) Description 06/30/2025 11:00 AM CDT Nurse Only Pedro Fat[facility] in [place], [place] [address] [place] [address] Jessica Rousseau M.B.B.S. [address] [place] [phone] Haven Ramirez R.N. [address] [place] [phone] Nurse Visit Social History Tobacco Use Types Packs/Day Years Used Date Smoking Tobacco: Never Smokeless Tobacco: Never Alcohol Use Standard Drinks/Week Comments Not Currently 0 (1 standard drink = 0.6 oz pur e alcohol) Humiliation, Afraid, Rape, and Kick questionnair e Answer Date Recorded Within the last year, have y ou been afraid of your partner or ex-partner? No 07/02/2025 Within the last year, have y ou been humiliated or emotionally abused in other ways by your partner or ex-partner? No Within the last year, have y ou been kicked, hit, slapped, or otherwise physically hurt by your partner or ex-partner? No 07/02/2025 Within the last year, have y ou been raped or forced to have any kind of sexual activity by your partner or ex-partner? No 07/02/2025 Hunger Vital Sign Answer Date Recorded Within the past 12 months, y ou worried that your food would run out before you got the money to buy more. Never true 07/02/20 25 Within the past 12 months, t he food you bought just didn't last and you didn't have money to get more. Never true 07/02/2025 PRAPARE - Transportation Answer Date Re corded In the past 12 months, has l ack of transportation kept you from medical appointments or from getting medications? No 06/19 In the past 12 months, has l ack of transportation kept you from meetings, work, or from getting things needed for daily living? No 07/02/2025 [facility] Utilities Answer Date Recorded In the past 12 months has th e electric, gas, oil, or water company threatened to shut off services in your home? No 07/02/2025 Depression Answer Date Recor ded PHQ-9 Total Score (max 27) 2 12/10 Housing Stability Answer Date Recorded What is your living situation today? I have a [facility] place to live 07/02/2025 Education Answer Date Recorded What is the highest level of school you have completed or the highest degree you have received? Some college, no degree 04/24/2019 Comments No Sex and Gender Information Value Date Recorded Sex Assigned at Female 12/26/2018 8:37 PM ELECTRONICS TECHNICIAN Legal Sex Female 2:43 PM ELECTRONICS TECHNICIAN Gender Identity Female 12/26/2018 8:37 PM ELECTRONICS TECHNICIAN Sexual Orientation Choose not to disclose 2020 3:46 PM CDT documented as of this encounter Last Filed Vital Signs Vital Sign Reading Time Taken Comments Blood Pressure 135/98 06/30/2025 11:05 AM CDT Pulse 92 06/30/2025 10:51 AM CDT Temperature 36.6 C (97.9 F) 06/30/2025 10:51 AM CDT Respiratory Rate - - Oxygen Saturation - - Inhaled Oxygen Concentration - - Weight 103 kg (227 lb 1.2 oz) 06/30/2025 10:51 A M CDT Height 173.7 cm (5' 8.39) 06/30/2025 10:51 AM C DT Body Mass Index 34.14 06/30/2025 10:51 AM CDT documented in this encounter Progress Notes * Haven Ramirez RKatalinaN. - 06/30/2025 11:00 AM CDT S/P Allo Transplant for Chronic Myelogenous Leukemia. Day 0 = 12/10/2024 (202 days). Please see previous notes regarding patient's history. Patient seen today by Dr. Rousseau. Please see their note for a full systems review. KPS: 80 Since last evaluation, the patient reports the following: General Symptoms: She continues to struggle with fatigue and 7/10 left sided abdominal pain. She went to the ER last night and was given Morphine which did help with her pain. She feels the pain is radiated upward. She denies heart burn. She also struggles with fatigue. She is scheduled to have a CT ABD and Pelvis today and wonders if she should be admitted. Denies skin issues, eye symptoms, ENT symptoms, or urinary concerns. GI: She continues to have nausea. Last night she had an episode of vomiting. She had 4 episodes of diarrhea last night. Today her stools are formed. She used Imodium last night. Cardiac: Chest discomfort that she rates a 3/10. Denies shortness of breath. Denies cough. Psychosocial: Not sleeping well, has episodes of sweating during the night and daytime. Plan of care discussed with provider: Patient's transition from Hospital Based Outpatient to Outpatient BMT was completed on 12/31/2024. New medication changes with this visit: None Pending Results: Pathology from 06/26/25 Flex sig, labs to be drawn on station 94 today to include lactate, lipase, amylase. Patient will also be getting IV Morphine and IV Zofran on Station 94. Interim Plans: CT A/P Angiogram Enterography today. PAL 07/03/25, TXP Psych on 07/15/25. Lab Plan: in 6 weeks with return visit. Labs to include BCR/ABL. Future BMT Appointments: Return in 6 weeks with allo labs including BCR/ABL, RN/Provider visits. GIH and Imms already scheduled. All questions answered, patient verbalized understanding of plan, patient will call with any additional questions or concerns prior to return appointment. Haven Ramirez R.N. documented in this encounter Plan of Treatment Upcoming Encounters Date Type Department Care Team (Late st Contact Info) Description 07/21/2025 11:00 AM CDT Telemedicine Department of Palliative Care in [place], [place] [address] [place] [phone] Meghan Osorio M.D. [address] [place] [address] 07/22/2025 8:40 AM CDT Lab Department of Laboratory Medicine and Pathology, [facility] in [place], [place] [address] [place] [address] Becky Hernandez APRN, C.N.PKatalina, D.N.P. [address] [place] [phone] 07/22/2025 9:30 AM CDT Office Visit [facility] for Transplantation and Clinical Regeneration in [place], [place] [address] [place] [address] Becky Hernandez APRN, C.N.Jean., D.N.P. [address] [place] [phone] 07/30/2025 2:00 PM CDT Appointment Division of Gastroenterology in [place], [place] [address] [place] [address] Derrick Cruz Jr., M.D., M.S. [address] [place] [phone] 08/11/2025 9:00 AM CDT Nurse Only Section of Infectious Diseases in [place], [place] [address] [place] [phone] Jessica Rousseau M.B.B.S. [address] [place] [phone] 08/11/2025 1:00 PM CDT Clinical Support Department of Palliative Care in [place], [place] [address] [place] [address] Uma Aly APRN, C.N.P., M.S.N. [address] [place] [phone] 08/13/2025 10:00 AM CDT Lab Department of Laboratory Medicine and Pathology, [facility], in [place], [place] [address] [place] [address] Jessica Rousseau M.B.B.S. [address] [place] [phone] 08/13/2025 10:30 AM CDT [facility] in [place], [place] [address] [place] [address] Jessica Rousseau M.B.B.S. [address] [place] [phone] 08/13/2025 11:00 AM CDT Nurse Only Pedro Fatima [facility] Transplantation and Clinical Regeneration in [place], [place] [address] [place] [address] Jessica Rousseau M.B.B.S. [address] [place] [phone] 08/13/2025 11:30 AM CDT [facility] in [place], [place] [address] [place] [address] Jessica Rousseau M.B.B.S. [address] [place] [phone] 09/25/2025 10:30 AM ELECTRONICS TECHNICIAN Telemedicine [facility] in [place], [place] [address] [place] [address] Jessica Rousseau M.B.B.S. 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) Transplant Bone Marrow Allogeneic (HCC) Expected: 08/11/2025, Expires: 11/09/2025 AST (Aspartate Aminotransferase) Lab Routine 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) Transplant Bone Marrow Allogeneic (HCC) Expected: 08/11/2025, Expires: 11/09/2025 Bilirubin, Total Lab Routine 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) Transplant Bone Marrow Allogeneic (HCC) Expected: 08/11/2025, Expires: 11/09/2025 BUN (Blood Urea Nitrogen) Lab Routine 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) Transplant Bone Marrow Allogeneic (HCC) Expected: 08/11/2025, Expires: 11/09/2025 Calcium, Total Lab Routine 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) Transplant Bone Marrow Allogeneic (HCC) Expected: 08/11/2025, Expires: 11/09/2025 CBC no call back, reflex T/S HGB <8 Lab Routine 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) Transplant Bone Marrow Allogeneic (HCC) Expected: 08/11/2025, Expires: 11/09/2025 Creatinine with Estimated GFR Lab Routine 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) Transplant Bone Marrow Allogeneic (HCC) Expected: 08/11/2025, Expires: 11/09/2025 Glucose, Fasting Lab Routine 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) Transplant Bone Marrow Allogeneic (HCC) Fatigue Expected: 08/11/2025, Expires: 11/09/2025 Magnesium Lab Routine 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) Transplant Bone Marrow Allogeneic (HCC) Expected: 08/11/2025, Expires: 11/09/2025 Potassium Lab Routine 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) Transplant Bone Marrow Allogeneic (HCC) Expected: 08/11/2025, Expires: 11/09/2025 Sodium Lab Routine 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) Transplant Bone Marrow Allogeneic (HCC) Expected: 08/11/2025, Expires: 11/09/2025 LD (Lactate Dehydrogenase) Lab Routine 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) Transplant Bone Marrow Allogeneic (HCC) Expected: 08/11/2025, Expires: 11/09/2025 BCR/ABL1, p210, mRNA Detection, Reverse Engraver Steel Plate-PCR (RT-PCR), Quantitative, Monitoring Chronic Myeloid Leukemia (CML) Lab Routine 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) Transplant Bone Marrow Allogeneic (HCC) Expected: 08/11/2025, Expires: 11/09/2025 CMV DNA Detect / Quant, Plasma Microbiology Routine 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) Transplant Bone Marrow Allogeneic (HCC) Expected: 08/11/2025, Expires: 11/09/2025 Scheduled Referrals Name Type Priority Associated Diagnoses Order Schedule Transplant Bone marrow office visit (clinic) Outpatient Referral Routine 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) Transplant Bone Marrow Allogeneic (HCC) Expected: 08/11/2025, Expires: 11/09/2025 Transplant Bone marrow office visit (clinic) Outpatient Referral Routine 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) Transplant Bone Marrow Allogeneic (HCC) Expected: 08/11/2025, Expires: 11/09/2025 Pharmacy - Medication therapy management - transplant office visit (clinic) Outpatient Referral Routine 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) Transplant Bone Marrow Allogeneic (HCC) Expected: 08/11/2025, Expires: 11/09/2025 documented as of this encounter Visit Diagnoses Diagnosis 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 [address] [place] [phone] PCP - General Family Medicine 04/25/23 documented as of this encounter
--- OUTSIDE RECORDS SUMMARY | 2025-06-30 11:30 | XMS_ITS | Encounter Summary ---
Author Organization [facility] Address [address] [place] [id number] Care Team Providers Care Mri Ct Tech Name Role Phone Renzo Andres M.D. Primary Care Provider Reason for Visit * Transplant (Routine) - Closed Specialty Diagnoses / Procedures Referred By Estefania t Referred To Contact Transplant Jessica Rousseau M.B.B.S. [address] [place] [phone] Phone: tel: fax: [facility] Referral ID Status Reason Start Date Expiration Date Visits Re quested Visits Authorized [id number] Closed 06/23/2025 12/23/2026 1 1 Encounter Details Date Type Department Care Team (Latest Contact Info) Description 06/30/2025 11:30 AM CDT Office Visit Pedro Fatima [facility] for Transplantation and Clinical Regeneration in [place], [place] [address] [place] [phone] Jessica Rousseau M.B.B.S. [address] [place] [phone] Transplant Bone Marrow Allogeneic (HCC) (Primary Dx) [...] for daily living? No 07/02/2025 [facility] Utilities Answer Date Recorded In the past 12 months has e electric, gas, oil, or water company threatened to shut off services in your home? No 07/02/2025 Depression Answer Date Recor ded PHQ-9 Total Score (max 27) 2 12/10 Housing Stability Answer Date Recorded What is your living situation today? I have a [facility] place to live 07/02/2025 Education Answer Date Recorded What is the highest level of school you have completed or the highest degree you have received? Some college, no degree 04/24/2019 Comments No Sex and Gender Information Value Date Recorded Sex Assigned at Female 12/26/2018 8:37 PM PHOTOGRAPHIC EQUIPMENT TECHNICIAN Legal Sex Female 2:43 PM PHOTOGRAPHIC EQUIPMENT TECHNICIAN Gender Identity Female 12/26/2018 8:37 PM PHOTOGRAPHIC EQUIPMENT TECHNICIAN Sexual Orientation Choose not to disclose 2020 3:46 PM CDT documented as of this encounter Progress Notes * Jessica Rousseau M.B.BKatalinaS. - 06/30/2025 11:30 AM CDT SUBJECTIVE TRANSPLANT PHYSICIAN Dr. Jessica Rousseau, pager [phone]. HISTORY OF PRESENT ILLNESS Radha Martinez is [...] reticulin fibrosis noted. 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 The BCR-ABL1 P [...] t(9;22) metaphases. 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 06/17/2024: feeling quite symptomatic since the [...] prophylaxis: Ursodiol 600 mg two times daily. [facility] ID Number: [id number] [...] [facility] in [place], [place]. - Patient will notify team if any vision changes. # Blood Products # TACO - Requires infusion of platelets at a slower rate #CMV- last checked 06/03/2025 #EBV - last checked March 2025 Activity: PAMP Level 4 (walks frequently) VTE Prophylaxis: Enoxaparin 40 mg subcutaneous once daily Blood Transfusions: Patient signed [id number] on 11/03/2024. Surrogate Decision Maker: Significant Other, [...] CDT Telemedicine Department of Palliative Care in [place], [place] [address] [place] [phone] Meghan Osorio M.D. 200 [place] [phone] 07/22/2025 8:40 AM CDT Lab Department of Laboratory Medicine and Pathology, [facility], in [place], [place] [address] [place] [phone] Becky Hernandez APRN C.N.P., D.N.P. [address] [place] [phone] 07/22/2025 9:30 AM CDT Office Visit [facility] in [place], [place] [address] [place] [address] Becky Hernandez APRN, C.N.P., D.N.P. [address] [place] [phone] 07/30/2025 2:00 PM CDT Appointment Division of Gastroenterology in [place], [place] [address] [place] [phone] Derrick Cruz Jr., M.D., M.S. [address] [place] [phone] 08/11/2025 9:00 AM CDT Nurse Only Section of Infectious Diseases in [place], [place] [address] [place] [phone] Jessica Rousseau M.B.B.S. [address] [place] [phone] 08/11/2025 1:00 PM CDT Clinical Support Department of Palliative Care in [place], [place] [address] [place] [phone] Uma Aly APRN C.N.P., M.S.N. [address] [place] [phone] 08/13/2025 10:00 AM CDT Lab Department of Laboratory Medicine and Pathology, [facility], in [place], [place] [address] [place] [phone] Jessica Rousseau M.B.B.S. [address] [place] [phone] 08/13/2025 10:30 AM CDT [facility] in [place], [place] [address] [place] [address] Jessica Rousseau M.B.B.S. [address] [place] [phone] 08/13/2025 11:00 AM CDT Nurse Only [facility] in [place], [place] [address] [place] [address] Jessica Rousseau M.B.B.S. [address] [place] [phone] 08/13/2025 11:30 AM CDT [facility] in [place], [place] [address] [place] [phone] Jessica Rousseau M.B.B.S. [address] [place] [phone] 09/25/2025 10:30 AM PHOTOGRAPHIC EQUIPMENT TECHNICIAN Telemedicine Pedro [facility] in [place], [place] [address] [place] [phone] Jessica Rousseau M.B.B.S. [address] [place] [phone] documented as of this encounter Results * Lactate (06/30/2025 1:12 PM CDT) Lactate, P 1.4 0.5 - 2.2 mmol/L 06/30/2025 2:09 PM CDT DTL Blood (Blood, Venous) 06/30/2025 1:12 PM CDT 06/30/2025 1:19 PM CDT Jessica LiconaSKatalina LAB BLOOD NON ADD-ON Final Result [facility] [address] [place] [address], [facility] [address] [place] [address] documented in this encounter Visit Diagnoses Diagnosis Transplant Bone Marrow Allogeneic (HCC)- Primary documented in this encounter Additional Health Concerns Infection Onset Date Last Indicated Resolved Time Protective Environment 03/02/2023 03/02/2023 Assessment Noted Time PHQ-9 Depression Total Score: 2 12/10/19 25 2:46 PM PHOTOGRAPHIC EQUIPMENT TECHNICIAN documented as of this encounter Care Teams Mri Ct Tech Relationship Specialty Start Date End Date Renzo Andres M.D. [address] [place] [phone] PCP - General Family Medicine 04/25/23 documented as of this encounter
--- OUTSIDE RECORDS SUMMARY | 2025-06-30 12:34 | XMS_ITS | Encounter Summary ---
Author Organization [facility] Address [address] [place] [address] Care Team Providers Care Brazing Machine Operator Automatic Name Role Phone Renzo Andres M.D. Primary Care Provider Reason for Referral * Specialty Diagnoses / Procedures Referred By Estefania acosta Referred To Contact [facility] [address] [place] [address] Phone: tel: [facility] Referral ID Status Reason Start Date Expiration Date Visits Re quested Visits Authorized Encounter Details Date Type Department Care Team (Latest Contact Info) Description 06/30/2025 12:34 PM CDT - 06/30/2025 1:43 PM CDT Hospital Encounter [facility], Ninth Floor [address] [place] [phone] Mckenzie Melvin APRN, C.N.P., D.N.P. 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 No 06/24/2025 [facility] Utilities Answer Date Recorded In the [...] Sex Assigned at Female 12/26/2018 8:37 PM DIESEL RETROFIT INSTALLER Legal Sex Female 2:43 PM DIESEL RETROFIT INSTALLER Gender Identity Female 12/26/2018 8:37 PM DIESEL RETROFIT INSTALLER Sexual Orientation Choose not to disclose 2020 3:46 PM CDT documented as of this encounter Last Filed Vital Signs Vital Sign Reading Time Taken Comments Blood Pressure 136/101 06/30/2025 12:43 PM CDT Pulse 87 06/30/2025 12:40 PM CDT Temperature 36.9 C (98.4 F) 06/30/2025 12:40 PM CDT Respiratory Rate 14 06/30/2025 1:33 PM CDT Oxygen Saturation 97% 06/30/2025 1:33 PM CDT Inhaled Oxygen Concentration - - [...] by mouth daily. 60 capsule 2 06/28/2025 5 buprenorphine (Butrans) 5 mcg/hourIndications :Chronic Pain/Nonacute Pain Place 1 patch on the skin once a week Indication: Chronic Pain/Nonacute Pain. 4 patch 06/19/2025 5 cyclobenzaprine (FlexeriL) 5 mg tabletIndications:T ransplant Stem Cell ([facility]),Pain Neuropathic,Leukemi a Myeloid Chronic BCR/ABL Positive Remission ([facility]) Take 1 tablet (5 mg total) by mouth 2 (two) times a day as needed for muscle spasms. 5 tablet 06/29/2025 5 diphenhydrAMINE (BenadryL) 25 mg capsule Take 1 capsule (25 mg total) by mouth every 6 (six) hours as needed for itching. 06/13/2025 5 HYDROmorphone (Dilaudid) 1 mg/mL liquidIndications:C hronic Pain/Nonacute Pain Take 2 mL (2 mg total) by mouth every 6 (six) hours as needed for pain Indication: Chronic Pain/Nonacute Pain. 06/27/2025 5 hydrOXYzine (Atarax) 25 mg tabletIndications:T ransplant Stem Cell ([facility]),Transplant Bone Marrow Allogeneic (HCC),Leukemia Myeloid Chronic BCR/ABL Positive Remission (HCC),Abdominal Pain Take 1 tablet (25 mg total) by mouth every 6 (six) hours as needed for anxiety. 30 tablet 1 06/27/2025 5 ibuprofen 400 mg tablet Take 1 tablet (400 mg total) by mouth every 6 (six) hours as needed for moderate pain or score 4-6 of 10. 06/13/2025 5 lidocaine (Lidoderm) 5 % adhesive patch,medicatedIndi cations:Transplant Bone Marrow Allogeneic (HCC) Place 1 patch on the skin daily. Apply to affected area . 30 patch 06/23/2025 5 loperamide (Imodium A-D) 2 mg capsule Take 1 capsule (2 mg total) by mouth every 2 (two) hours as needed for diarrhea. Take with occurrence of diarrhea. May take up to 16 mg, or 8 doses daily. 05/17/2025 5 nystatin (Mycostatin) 100,000 unit/mL suspensionIndicatio ns:Transplant Stem Cell (HCC),Transplant Bone Marrow Allogeneic (HCC),Leukemia Myeloid Chronic BCR/ABL Positive Remission (HCC),Abdominal Pain Swish and swallow 5 mL (500,000 Units total) 4 (four) times a day for 7 days. 140 mL 06/27/2025 5 pantoprazole (Protonix) 40 mg EC tablet Take 1 tablet (40 mg total) by mouth 2 (two) times a day before morning and evening meals. 60 tablet 1 06/27/2025 5 posaconazole (NoxafiL) [address] tabletIndications:L eukemia Myeloid Chronic BCR/ABL Positive Remission (HCC),Transplant Bone Marrow Allogeneic (HCC) Take 3 tablets (300 mg total) by mouth daily. 90 tablet 06/13/2025 5 prochlorperazine (Compazine) 10 mg tablet Take 1 tablet (10 mg total) by mouth every 6 (six) hours as needed for nausea. 30 tablet 1 05/20/2025 5 sennosides-docusate sodium (Senokot-S) 8.6-50 mg per tablet Take 1 tablet by mouth 2 (two) times a day. 60 tablet 1 06/27/2025 5 documented as of this encounter Plan of Treatment Upcoming Encounters Date Type Department Care Team (Late st Contact Info) Description 07/21/2025 11:00 AM CDT Telemedicine Department of Palliative Care in [place], [place] 200 [place] [address] Meghan Osorio M.D. 200 [place] [address] 07/22/2025 8:40 AM CDT Lab Department of Laboratory Medicine and Pathology, [facility], in [place], [place] [address] [place] [address] Becky Hernandez APRN C.N.P., D.N.P. [address] [place] [phone] 07/22/2025 9:30 AM CDT Office Visit Pedro Aravind [facility] for Transplantation and Clinical Regeneration in [place], [place] [address] [place] [address] Becky Hernandez APRN, C.N.P., D.N.P. [address] [place] [phone] 07/30/2025 2:00 PM CDT Appointment Division of Gastroenterology in [place], [place] [address] [place] [phone] Derrick Cruz Jr., M.D., M.S. [address] [place] [phone] 08/11/2025 9:00 AM CDT Nurse Only Section of Infectious Diseases in [place], [place] [address] [place] [phone] Jessica Rousseau M.B.B.S. [address] [place] [phone] 08/11/2025 1:00 PM CDT Clinical Support Department of Palliative Care in [place], [place] [address] [place] [phone] Uma Aly APRN C.N.P., M.S.N. [address] [place] [phone] 08/13/2025 10:00 AM CDT Lab Department of Laboratory Medicine and Pathology, [facility], in [place], [place] [address] [place] [phone] Jessica Rousseau M.B.B.S. [address] [place] [address] 08/13/2025 10:30 AM CDT [facility] in [place], [place] [address] [place] [address] Jessica Rousseau M.B.B.S. [address] [place] [phone] 08/13/2025 11:00 AM CDT Nurse Only Pedro Lanza laura [facility] for Transplantation and Clinical Regeneration in [place], [place] [address] [place] [address] Jessica Rousseau M.B.B.S. [address] [place] [phone] 08/13/2025 11:30 AM CDT Office Visit Pedro sanchez [facility] for Transplantation and Clinical Regeneration in [place], [place] [address] [place] [address] Jessica Rousseau M.B.B.S. [address] [place] [phone] 09/25/2025 10:30 AM DIESEL RETROFIT INSTALLER Telemedicine [facility] in [place], [place] [address] [place] [address] Jessica Rousseau M.B.B.S. [address] [place] [phone] Scheduled Referrals Name Type Priority Associated Diagnoses Order Schedule Hydration Infusion Therapy; Outpatient Referral Routine Once for 1 Occurrences starting 06/30/2025 until 06/30/2025 documented as of this encounter Procedures Procedure Name Priority Date/Time Associated Diagnosis Comments LIPASE, S/P Routine 06/30/2025 1:12 PM CDT Transplant Bone Marrow Allogeneic (HCC) LACTATE, B/P Routine 06/30/2025 1:12 PM CDT Transplant Bone Marrow Allogeneic (HCC) AMYLASE, TOT, S Routine 06/30/2025 1:12 PM CDT Transplant Bone Marrow Allogeneic (HCC) documented in this encounter Results * Amylase, Total (06/30/2025 1:12 PM CDT) Amylase, Total, S 50 28 - 100 U/L 06/30/2025 2:24 PM CDT DTL Blood (Blood, Venous) 06/30/2025 1:12 PM CDT 06/30/2025 1:19 PM CDT Jessica DowlingB.S. LAB BLOOD ADD-ON Final Res ult Performing Organization Address City/[facility]/ZIP Co de Phone Number [facility] [place] [address] [place] [address], [facility] DTL [facility] [address] [place] [address] * Lipase (06/30/2025 1:12 PM CDT) Lipase, S 18 13 - 60 U/L 06/30/2025 2: 24 PM CDT DTL Blood (Blood, Venous) 06/30/2025 1:12 PM CDT 06/30/2025 1:19 PM CDT us Jessica DowlingB.S. LAB BLOOD ADD-ON Final Res ult [facility] [place] [address] [place] [address], 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) documented in this encounter Administered Medications Inactive Administered Medications - up to 3 most recent administrations Medication Order MAR Action Action Date Dose Rate Site morphine injection 4 mg 4 mg, intravenous, Once, On Sun06/30/25 at 1300, For 1 dose Given 06/30/2025 1:25 PM CDT 4 mg ondansetron (PF) injection 8 mg (Zofran) 8 mg, intravenous, Once, On Sun06/30/25 at 1300, For 1 dose Given 06/30/2025 1:25 PM CDT 8 mg documented in this encounter Additional Health Concerns Infection Onset Date Last Indicated Resolved Time Protective Environment 03/02/2023 03/02/2023 Assessment Noted Time PHQ-9 Depression Total Score: 2 12/10/19 2:46 PM DIESEL RETROFIT INSTALLER documented as of this encounter Care Teams Brazing Machine Operator Automatic Relationship Specialty Start Date End Date Renzo Andres M.D. [address] [place] [phone] PCP - General Family Medicine 04/25/23 documented as of this encounter
--- OUTSIDE RECORDS SUMMARY | 2025-06-30 13:44 | XMS_ITS | Encounter Summary ---
Author Organization [facility] Address [address] [place] [address] Care Team Providers Care Project Systems Engineer Name Role Phone Renzo Andres M.D. [...] Armas APRN, C.N.P., D.N.P., M.S.N. [address] [place] [address] Phone: tel: fax: [facility] Referral ID Status Reason Start Date Expiration Date Visits Re quested Visits Authorized [id number] Closed 06/27/2025 09/27/2026 1 1 CDT Reason for Visit * MRI/CAT/PET Scan (Routine) - Closed Specialty Diagnoses / Procedures Referred By Estefania acosta Referred To Contact Radiology Diagnoses Transplant Stem Cell (HCC) Transplant Bone Marrow Allogeneic (HCC) Procedures CT Abdomen Pelvis Enterography with IV Contrast CT Abdomen Pelvis Angiogram Enterography with IV Contrast Carlee Armas APRN, C.N.P., Heaven.N.P., M.S.N. 200 [place] [address] Phone: tel: fax: [facility] Referral ID Status Reason Start Date Expiration Date Visits Re quested Visits Authorized [id number] Closed 06/27/2025 09/27/2026 1 1 Encounter Details Date Type Department Care Team (Latest Contact Info) Description 06/30/2025 1:44 PM CDT - 06/30/2025 4:14 PM CDT Hospital Encounter Department of Radiology, [facility], in [place], [place] 200 [place] [address] Carlee Armas APRN, C.N.P., Heaven.N.P., M.S.N. [address] [place] [phone] Transplant Stem Cell (HCC); Transplant Bone Marrow [...] In the past 12 months has th [employer], gas, oil, or water company threatened to shut off services in your home? No 06/24/2025 Depression Answer Date Recor ded PHQ-9 Total Score (max 27) 2 12/10 Housing Stability Answer Date Recorded What is your living situation today? I have a [facility] place to live 06/24/2025 Education Answer Date Recorded What is the highest level of school you have completed or the highest degree you have received? Some college, no degree 04/24/2019 Comments No Sex and Gender Information Value Date Recorded Sex Assigned at Female 12/26/2018 8:37 PM FLOWER MACHINE OPERATOR Legal Sex Female 2:43 PM FLOWER MACHINE OPERATOR Gender Identity Female 12/26/2018 8:37 PM FLOWER MACHINE OPERATOR Sexual Orientation Choose not to [...] times a day. 60 tablet 1 06/27/2025 documented as of this encounter Nursing Notes [...] CDT Telemedicine Department of Palliative Care in [place], [place] [address] [place] [phone] Meghan Osorio M.D. [address] [place] [phone] 07/22/2025 8:40 AM CDT Lab Department of Laboratory Medicine and Pathology, [facility], in [place], [place] [address] [place] [address] Becky Hernandez APRN, C.N.P., D.N.P. [address] [place] [phone] 07/22/2025 9:30 AM CDT Office Visit [facility] in [place], [place] [address] [place] [phone] Becky Hernandez APRN, C.N.P., D.N.P. [address] [place] [phone] 07/30/2025 2:00 PM CDT Appointment Division of Gastroenterology in [place], [place] [address] [place] [phone] Derrick Cruz Jr., M.D., M.S. [address] [place] [phone] 08/11/2025 9:00 AM CDT Nurse Only Section of Infectious Diseases in [place], [place] [address] [place] [phone] Jessica Rousseau M.B.B.S. [address] [place] [phone] 08/11/2025 1:00 PM CDT Clinical Support Department of Palliative Care in [place], [place] [address] [place] [phone] Uma Aly APRN, CKatalinaNKatalinaP., M.S.N. [address] [place] [address] 08/13/2025 10:00 AM CDT Lab Department of Laboratory Medicine and Pathology, [facility], in [place], [place] [address] [place] [address] Jessica Rousseau M.B.B.S. [address] [place] [phone] 08/13/2025 10:30 AM CDT [facility] in [place], [place] [address] [place] [address] Jessica Rousseau M.B.B.S. [address] [place] [phone] 08/13/2025 11:00 AM CDT Nurse Only [facility] in [place], [place] [address] [place] [phone] Jessica Rousseau M.B.B.S. [address] [place] [phone] 08/13/2025 11:30 AM CDT [facility] in [place], [place] [address] [place] [address] Jessica Rousseau M.B.B.S. [address] [place] [phone] 09/25/2025 10:30 AM FLOWER MACHINE OPERATOR Telemedicine [facility] in [place], [place] [address] [place] [address] Jessica Rousseau M.B.B.S. [address] [place] [address] documented as of this encounter Procedures Procedure [...] without recurrence of the marked splenomegaly seen [id number]. 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 Carlee Armas APRN C.N.P., D.N.P., M.S. N. IMG CT PROCEDURES Final [...] Given 06/30/2025 3:29 PM CDT 50 mL lnydglyv-kjtonirm-rgfroml gum liquid 1-1,500 mL (Breeza) 1-1,500 mL, oral, Once, On Sun06/30/25 at 1430, For 1 dose, Imaging Protocol Orders Given 06/30/2025 2:22 PM CDT 1,500 mL documented in this encounter Additional Health Concerns Infection Onset Date Last Indicated Resolved Time Protective Environment 03/02/2023 03/02/2023 Assessment Noted Time PHQ-9 Depression Total Score: 2 12/10/19 2:46 PM FLOWER MACHINE OPERATOR documented as of this encounter Care Teams Project Systems Engineer Relationship Specialty Start Date End Date Renzo Andres M.D. [address] [place] [phone] PCP - General Family Medicine 04/25/23 documented as of this encounter
--- OUTSIDE RECORDS SUMMARY | 2025-06-30 16:15 | XMS_ITS | Encounter Summary ---
Author Organization [facility] Address [address] [place] [address] Care Team Providers Care Dog Barber Name Role Phone Renzo Andres M.D. Primary Care Provider Reason for Referral * Specialty Diagnoses / Procedures Referred By Estefania acosta Referred To Contact RST [facility] [address] [place] [address] Phone: tel: [facility] Referral ID Status Reason Start Date Expiration Date Visits Re quested Visits Authorized Encounter Details Date Type Department Care Team (Latest Contact Info) Description 06/30/2025 4:15 PM CDT - 06/30/2025 7:30 PM CDT Hospital Encounter [facility], [facility], Ninth Floor [address] [place] [phone] Jimmy Rodriguez M.D. 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 No 06/24/2025 [facility] Utilities Answer Date Recorded In the past 12 months has e [employer], gas, oil, or water [employer] threatened to shut off services in your home? No 06/24/2025 Depression Answer Date Recor ded PHQ-9 Total Score (max 27) 2 12/10 Housing Stability Answer Date Recorded What is your living situation today? I have a [facility] place to live 06/24/2025 Education Answer Date Recorded What is the highest level of school you have completed or the highest degree you have received? Some college, no degree 04/24/2019 Comments No Sex and Gender Information Value Date Recorded Sex Assigned at Female 12/26/2018 8:37 PM SENIOR QUALITY ENGINEER Legal Sex Female 2:43 PM SENIOR QUALITY ENGINEER Gender Identity Female 12/26/2018 8:37 PM SENIOR QUALITY ENGINEER Sexual Orientation Choose not to disclose [...] a Myeloid Chronic BCR/ABL Positive Remission ([facility]) Take 1 tablet (5 mg total) by [...] (Atarax) 25 mg tabletIndications:T ransplant Stem Cell (FORMERLY [facility]),Transplant Bone Marrow Allogeneic (HCC),Leukemia Myeloid Chronic BCR/ABL [...] 1 06/27/2025 5 posaconazole (NoxafiL) 100 mg tabletIndications:L eukemia [...] 06/27/2025 5 documented as of this encounter Progress Notes * Mckenzie Melvin, KARON, C.N.P., D.N.P. - 06/30/2025 4:15 PM CDT Patient sent to hospital based outpatient station 9-[address] Rousseau on [place] [address] for pain control. Per Dr. Rousseau, patient to receive a dose of IV Morphine 4mg and 8mg IV Zofran once. Patient was seen last evening in her local ED for ongoing abdominal pain. She received this dose in the local ED last evening and tolerated it well with good control. Patient underwent CT Abd/Pelv Enteroscopy this afternoon. Awaiting final read (expected to result 07/01/25). Based on this result, may warrant GI consult. Per discussion with Uma Aly, Palliative Medicine TAX LAWYER, recommend patient increase oral dilaudid (home medication) from 2mg to 4mg. Of note, morphine equivalent dose of 4mg is equivalent to approximately 3mg dilaudid. Patient also has a Butrans 5mcg/hr patch in place. This was started by Palliative Medicine 05/28/25. She has a follow up with Palliative Medicine on 07/03/25 at which time Butrans patch could be increased as warranted. documented in this encounter Plan of Treatment Upcoming Encounters Date Type Department Care Team (Late st Contact Info) Description 07/21/2025 11:00 AM CDT Telemedicine Department of Palliative Care in [place], [place] [address] [place] [phone] Meghan Osorio M.D. [address] [place] [phone] 07/22/2025 8:40 AM CDT Lab Department of Laboratory Medicine and Pathology, [facility], in [place], [place] [address] [place] [phone] Becky Hernandez APRN C.N.P., D.N.P. [address] [place] [phone] 07/22/2025 9:30 AM CDT Office Visit Pedro sanchez [facility] for Transplantation and Clinical Regeneration in [place], [place] [address] [place] [phone] Becky Hernandez APRN C.N.P., D.N.P. [address] [place] [phone] 07/30/2025 2:00 PM CDT Appointment Division of Gastroenterology in [place], [place] [address] [place] [phone] Derrick Cruz Jr., M.D., M.S. [address] [place] [phone] 08/11/2025 9:00 AM CDT Nurse Only Section of Infectious Diseases in [place], [place] [address] [place] [address] Jessica Rousseau M.B.B.S. [address] [place] [phone] 08/11/2025 1:00 PM CDT Clinical Support Department of Palliative Care in [place], [place] [address] [place] [address] Uma Aly APRN, C.NLuigi., M.S.N. [address] [place] [phone] 08/13/2025 10:00 AM CDT Lab Department of Laboratory Medicine and Pathology, [facility], in [place], [place] [address] [place] [address] Jessica Rousseau M.B.B.S. [address] [place] [phone] 08/13/2025 10:30 AM CDT [facility] in [place], [place] [address] [place] [address] Jessica Rousseau M.B.B.S. [address] [place] [phone] 08/13/2025 11:00 AM CDT [facility] in [place], [place] [address] [place] [address] Jessica Rousseau M.B.B.S. [address] [place] [phone] 08/13/2025 11:30 AM CDT [facility] in [place], [place] [address] [place] [address] Jessica Rousseau M.B.B.S. [address] [place] [address] 09/25/2025 10:30 AM SENIOR QUALITY ENGINEER Telemedicine Pedro sanchez [facility] Transplantation and Clinical Regeneration in [place], [place] [address] [place] [address] Jessica Rousseau M.B.B.S. 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 No, Did the patient fail other oral opioids during hospitalization? Yes, Does the patient have documented allergies to oxycodone and/or morphine? Yes, Is the patient on hydromorphone chronically for pain? Yes Given 06/30/2025 4:40 PM CDT 4 mg documented in this encounter Additional Health Concerns Infection Onset Date Last Indicated Resolved Time Protective Environment 03/02/2023 03/02/2023 Assessment Noted Time PHQ-9 Depression Total Score: 2 12/10/19 25 2:46 PM SENIOR QUALITY ENGINEER documented as of this encounter Care Teams Dog Barber Relationship Specialty Start Date End Date Renzo Andres M.D. [address] [place] [address] [place] [phone] PCP - General Family Medicine 04/25/23 documented as of this encounter
--- OUTSIDE RECORDS SUMMARY | 2025-06-30 19:31 | XMS_ITS | Encounter Summary ---
Author Organization [facility] Address [address] [place] [address] Care Team Providers Care Clinical Writer Name Role Phone Renzo Andres M.D. Primary Care Provider [phone] Reason for Visit * Reason Comments Abdominal Pain Encounter Details Date Type Department Care Team (Late st Contact Info) Description 06/30/2025 7:31 PM CDT - 06/30/2025 8:06 PM CDT Emergency [facility] Emergency Department [address] [place] [phone] Discharge Disposition: Left Against Medical Advice or Discontinued Care Social History Tobacco Use Types Packs/Day [...] [facility] 06/24/2025 Education Answer Date Recorded What is the highest level of school you have completed or the highest degree you have received? Some college, no degree 04/24/2019 Comments No Sex and Gender Information Value Date Recorded Sex Assigned at Female 12/26/2018 8:37 PM BLACK TOP ROLLER Legal Sex Female 2:43 PM BLACK TOP ROLLER Gender Identity Female 12/26/2018 8:37 PM BLACK TOP ROLLER Sexual Orientation Choose not to disclose 2020 3:46 PM CDT documented as of this encounter Last Filed Vital Signs Vital Sign Reading Time Taken Comments Blood Pressure 171/132 06/30/2025 7:36 PM CDT Pulse 80 06/30/2025 7:34 PM CDT Temperature 36.9 C (98.4 F) 06/30/2025 7:34 PM CDT Respiratory Rate 18 06/30/2025 7:34 PM CDT Oxygen Saturation 96% 06/30/2025 7:34 PM CDT Inhaled Oxygen Concentration - - Weight 104 kg (228 lb 6.3 oz) 06/30/2025 7:34 PM CDT Height 172.7 cm (5' 8) 06/30/2025 7:34 PM CDT Body Mass Index 34.73 06/30/2025 7:34 PM CDT documented in this encounter Medications [...] (FlexeriL) 5 mg tabletIndications:T ransplant Stem Cell ([facility]),Pain Neuropathic,Leukemi a Myeloid Chronic BCR/ABL Positive Remission ([facility]) Take 1 tablet (5 mg total) by [...] (Atarax) 25 mg tabletIndications:T ransplant Stem Cell ([facility]),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 - 06/30/2025 7:34 PM CDT Pt presents to the ED with abd pain for a month. Pt points to under the belly button and towards the left. Pain goes from a 3-7 out of 10. Pt states she is waiting on her CT results that happened today and her colonoscopy that was on Sunday. Pt states she wanted to come in because of her pain. Pt states she got dilaudid at around 1600 today and after that wore of the pain has been a 6 or 7 out of10. Mary Jane Taylor, RKatalinaN. 06/30/251936 documented in this encounter Plan of Treatment Upcoming Encounters Date Type Department Care Team (Late st Contact Info) Description 07/21/2025 11:00 AM CDT Telemedicine Department of Palliative Care in [place], [place] [address] [place] [address] Meghan Osorio M.D. [address] [place] [phone] 07/22/2025 8:40 AM CDT Lab Department of Laboratory Medicine and Pathology, [facility], in [place], [place] [address] [place] [address] Becky Hernandez APRN, C.N.P., D.N.P. [address] [place] [phone] 07/22/2025 9:30 AM CDT Office Visit Pedro Aravind sanchez [facility] for Transplantation and Clinical Regeneration in [place], [place] [address] [place] [address] Becky Hernandez APRN, C.N.P., D.N.P. [address] [place] [phone] 07/30/2025 2:00 PM CDT Appointment Division of Gastroenterology in [place], [place] [address] [place] [address] Derrick Cruz Jr., M.D., M.S. [address] [place] [phone] 08/11/2025 9:00 AM CDT Nurse Only Section of Infectious Diseases in [place], [place] [address] [place] [phone] Jessica Rousseau M.B.B.S. [address] [place] [phone] 08/11/2025 1:00 PM CDT Clinical Support Department of Palliative Care in [place], [place] [address] [place] [address] Uma Aly APRN, C.N.P., M.S.N. [address] [place] [address] 08/13/2025 10:00 AM CDT Lab Department of Laboratory Medicine and Pathology, [facility], in [place], [place] [address] [place] [address] Jessica Rousseau M.B.B.S. [address] [place] [phone] 08/13/2025 10:30 AM CDT [facility] in [place], [place] [address] [place] [address] Jessica Rousseau M.B.B.S. [address] [place] [phone] 08/13/2025 11:00 AM CDT Nurse Only [facility] for Transplantation and Clinical Regeneration in [place], [place] [address] [place] [address] Jessica Rousseau M.B.B.S. [address] [place] [phone] 08/13/2025 11:30 AM CDT Office Visit Pedro Aravind [facility] for Transplantation and Clinical Regeneration in [place], [place] [address] [place] [address] Jessica Rousseau M.B.B.S. [address] [place] [phone] 09/25/2025 10:30 AM BLACK TOP ROLLER Telemedicine [facility] [place] for Transplantation and Clinical Regeneration in [place], [place] [address] [place] [address] Jessica Rousseau M.B.B.S. [address] [place] [address] Scheduled Orders Name Type Priority Associated Diagnoses Orde r Schedule Bacterial Culture, Aerobic + Susceptibility, Urine Microbiology STAT STAT for 1 Occur rences starting 06/30/2025 until 06/30/2025 documented as of this encounter Visit Diagnoses Not on filedocumented in this encounter Additional Health Concerns Infection Onset Date Last Indicated Resolved Time Protective Environment 03/02/2023 03/02/2023 Assessment Noted Time PHQ-9 Depression Total Score: 2 12/10/19 25 2:46 PM BLACK TOP ROLLER documented as of this encounter Care Teams Clinical Writer Relationship Specialty Start Date End Date Renzo Andres M.D. [address] [place] [phone] PCP - General Family Medicine 04/25/23 documented as of this encounter
--- OUTSIDE RECORDS SUMMARY | 2025-07-02 20:48 | XMS_ITS | Encounter Summary ---
Author Organization [facility] Address [address] [place] [id number] Care Team Providers Care Assistant Name Role Phone Renzo Andres M.D. Primary Care Provider Encounter Details Date Type Department Care Team (Latest Contact Info) Description 07/02/2025 8:48 PM CDT - 07/06/2025 12:56 PM CDT Hospital Encounter [facility], Tenth Floor [address] [place] [phone] Armond James M.D. [address] [place] [phone] Geo Mcdowell M.D., Ph.D. [address] [place] [phone] Discharge Disposition: Home or Self Care Social [...] things needed for daily living? No 07/02/2025 [facility] Utilities Answer Date Recorded In the past 12 months has th e electric, gas, oil, or water company threatened to shut off services in your home? No 07/02/2025 Depression Answer Date Recor ded PHQ-9 Total Score (max 27) 2 12/10 Housing Stability Answer Date Recorded What is your living situation today? I have a [facility] place to live 07/02/2025 Education Answer Date Recorded What is the highest level of school you have completed or the highest degree you have received? Some college, no degree 04/24/2019 Comments No Sex and Gender Information Value Date Recorded Sex Assigned at Female 12/26/2018 8:37 PM AIRLINE ATTENDANT Legal Sex Female 2:43 PM AIRLINE ATTENDANT Gender Identity Female 12/26/2018 8:37 PM AIRLINE ATTENDANT Sexual Orientation Choose not to disclose 2020 3:46 PM CDT documented as of this encounter Last Filed Vital Signs Vital Sign Reading Time Taken Comments Blood Pressure 130/85 07/06/2025 12:41 PM CDT Pulse 84 07/06/2025 12:41 PM CDT Temperature 36.6 C (97.9 F) 07/06/2025 12:41 PM CDT Respiratory Rate 16 07/06/2025 12:41 PM CDT Oxygen Saturation 97% 07/06/2025 12:41 PM CDT Inhaled Oxygen Concentration - - Weight 105 kg (230 lb 9.6 oz) 07/05/2025 8:53 AM CDT Height - - Body Mass Index 35.06 06/30/2025 7:34 PM CDT documented in this encounter Discharge Summaries * Jessica Avila, KARON, C.N.P., M.S.N. - 07/06/2025 11:44 AM CDT DISCHARGE SUMMARY BRIEF OVERVIEW Hospital: [facility] Discharge Provider: Geo Mcdowell M.D. Primary Team: [facility] Primary Care Providers: Renzo Andres M.D. (General) [address] [place] [phone] Primary Care Provider Primary Care Provider Admission Date: 07/02/2025 Discharge Date: 07/06/2025 PRINCIPAL DIAGNOSIS Pain Left Lower Quadrant SECONDARY DIAGNOSES Principal Problem: Pain Left Lower Quadrant Resolved Problems: * No resolved hospital problems. * DISCHARGE DISPOSITION ACTIVE ISSUES REQUIRING FOLLOW UP OUTPATIENT FOLLOW UP Scheduled Appointments Next 10 Appointments 07/14/2025 8:00 AM Monica Tolbert M.D., M.S. Palliative Medicine 07/15/2025 9:00 AM TXP PSYCHIATRY 01 [facility] Transplant 07/16/2025 7:30 AM LAB BLOOD [facility] LO Laboratory Medicine 07/16/2025 8:00 AM PHR TXP PHARMACIST [facility] Pharm[facility] 07/16/2025 8:30 AM TXP BMT NURSE 02 JORDON; TXP BMT ANUPAM 01 [facility] 09 Transplant Blood and Marrow 08/11/2025 9:00 AM IFD IMMUNIZATIONS 01 [facility] Infectious Diseases 08/11/2025 1:00 PM PAL RN NURSE 02 [facility] Palliative Medicine 08/13/2025 10:00 AM LAB BLOOD JORDON ABREU Laboratory Medicine 08/13/2025 10:30 AM PHR TXP PHARMACIST [facility] 08/13/2025 11:00 AM TXP BMT NURSE 02 [facility] Transplant Blood and Marrow Displaying the next 10 appointments. This patient has additional appointments scheduled. For appointment details refer to your Patient Appointment Guide. TEST RESULTS PENDING AT DISCHARGE Pending Labs Order Current Status Porphyrins, Feces Collected (07/05/25826) 25-Hydroxyvitamin D2 and D3 In process Aminolevulinic Acid Dehydratase (ALAD) In process C1 Esterase Inhibitor, Functional Assay In process C3 Complement, Functional In process C4 Complement, Functional In process CMV DNA Detect / Quant, Plasma In process EBV DNA Detect/Quant In process Troponin T, 2 Hour with 6 Hour Reflex, 5th Gen In process Uroporphyrinogen Decarboxylase (UPG D), Whole Blood In process Bacteria / Helen Culture, Blood #1 Preliminary result Bacteria / Helen Culture, Blood #2 Preliminary result DETAILS OF HOSPITAL STAY REASON FOR ADMISSION Abdominal Pain Nausea Frequency Urinary Pain Left Lower Quadrant HOSPITAL COURSE Ms Radha Martinez is a 35 year old female with a past medical history significant for 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 She was admitted to inpatient BMT service on 07/02/2025 for further management of persistent abdominalpain, nausea and vomiting, and chills. Previously done EGD and Flex Sigmoidoscopy on 06/26/2025 demonstrated oral thrush, gastritis, non-bleeding gastric ulcer, and duodenitis. Pathology demonstrating scattered apoptosis in colonic mucosa, indeterminate for GVHD. CT abd/pelvis angiogram enterography obtained 06/30/2025 negative for large or small bowel inflammation of imaging abnormality, no marked splenomegaly. Amylase and lipase noted to be WNL GGT is 41, slightly over limits (to 36). Surveillance blood cultures done on admission negative Initial lactate resulted mildly elevated at 2.3 mmol/L, improved to 1.2 mmol/L after 1 liter 0.9% NS bolus. Urinalysis and urine culture mostly normal with a glucose of 300 and ketone of 5. Urine culture negative. 07/03 CRP<3, Proteinase 3 Ab <0.2, Myeloperoxidae <0.2 Porphyria, C3, C4, C1 esterase, ANCA pending She has been taking dilaudid for abdominal pain ( in addition to Buprenorphine patch) and on admission the dose was increased from 2 mg q 4 hrs to 4 mg q 3 hrs. Palliative care was involved in her care . Nausea was managed with Olanzapine. During the hospital stay she became constipated. This resolved with aggressive bowel management and tap water enema on 07/05 GI team was consulted , but since the work up was unrevealing they suggested Psych GI consult as anoutpatient. This will be requested upon dismissal. During hospital stay patient remained stable. Started on Levsin on 07/05 with significant improvement in pain and nausea. Prior to dismissal we started to taper her Dilaudid and Prednisone. Reported chest pain on 07/06 in AM. ECG was negative for acute changes and troponin was low. Pain resolved without intervention. It appears she has a pattern of night/early interventionist esophageal discomfort which likely is related to GERD. She will continue on PPI BID and take Maalox in AM if needed. She will be discharged on Dilaudid 20 mg po q 4 hrs with the goal to further taper as able. Prednisone will be decreased from 40 mg po daily to 30 mg po daily x 1 week, followed by taper 10 mg q week. We will plan for Psych GI consult as an outpatient and f/up with dr Rousseau in 2-3 weeks CONSULTS ORDERED DURING THIS ADMISSION IP CONSULT TO GASTROENTEROLOGY IP CONSULT TO PALLIATIVE CARE IP CONSULT TO DIETITIAN CONDITION AT DISCHARGE stable Discharge instructions were provided to the patient and caregiver(s). Total time spent in discharge services today: 35 minutes. documented in this encounter Discharge Instructions * Discharge Instructions* Cecile Ortiz - 07/03/2025 7:03 AM CDT You were discharged from the [facility] Service. [...] (four) hours as needed for indigestion (dyspepsia). 354 mL 1 07/06/2025 ARIPiprazole (Abilify) 10 mg tablet Take 1 [...] needed for pain Indication: Chronic Pain/Nonacute Pain. 60 mL 07/02/2025 hyoscyamine (Levsin) 0.125 mg tablet Take 1 tablet (0.125 mg total) by mouth every 4 (four) hours as needed for bladder spasms. For abdominal pain/cramping/sp asm 30 tablet 1 07/06/2025 melatonin 5 mg tablet Take 5-10 mg by mouth at bedtime. OLANZapine (ZyPREXA) 5 mg tablet Take 1 tablet (5 mg total) by mouth at bedtime. 30 tablet 1 07/06/2025 ondansetron ODT (Zofran-ODT) 4 mg disintegrating tablet [...] (two) times a day. 60 tablet 04/29/2025 predniSONE (Deltasone) 10 mg tablet Take 1 tablet (10 mg total) by mouth as directed. Take 3 tablets 07/06-07/12, 2 tablets 07/13-07/19, 1 tablet 07/20-07/26, 1/2 tab 07/27 -08/02 and then stop 45 tablet 07/06/2025 prochlorperazine (Compazine) 10 mg tablet Take 1 tablet (10 mg total) by mouth every 6 (six) hours as needed for nausea. 30 tablet 2 07/01/2025 sulfamethoxazole-tr imethoprim (Bactrim) 400-80 mg per tabletIndications:T ransplant Bone Marrow Allogeneic (HCC),Leukemia Myeloid Chronic BCR/ABL Positive Not Having Achieved Remission (HCC) Take 1 tablet by mouth daily. 60 tablet 1 05/13/2025 buprenorphine (Butrans) 5 mcg/hourIndications :Chronic Pain/Nonacute Pain Place 1 patch on the skin once a week Indication: Chronic Pain/Nonacute Pain. 4 patch 06/19/2025 07/14/20 25 OLANZapine (ZyPREXA) 2.5 mg tablet Take 1 tablet (2.5 mg total) by mouth 4 (four) times a day as needed (nausea). 16 tablet 1 07/06/2025 07/16/20 25 pantoprazole (Protonix) 40 mg EC tablet Take 1 tablet (40 mg total) by mouth 2 (two) times a day before morning and evening meals. 60 tablet 1 06/27/2025 07/16/20 25 posaconazole (NoxafiL) [address] tabletIndications:L eukemia Myeloid Chronic BCR/ABL Positive Remission (HCC),Transplant Bone Marrow Allogeneic ([facility]) Take 3 tablets (300 mg total) by mouth daily. 90 tablet 06/13/2025 07/16/20 25 sennosides-docusate sodium (Senokot-S) 8.6-50 mg per tablet Take 1 tablet by mouth 2 (two) times a day. 60 tablet 1 06/27/2025 07/16/20 25 documented as of this encounter Progress Notes * Ermelinda Woodward APRN, C.N.P. - 07/06/2025 9:30 AM CDT [facility] Palliative Care Progress Note Patient: Radha Martinez; 35 y.o.female Location Type: Hospital - General Floor Location: Reason for Consult: Symptom Management SUBJECTIVE Alexia is feeling better today with less abdominal pain and cramping; the mild symptoms that she does have are pretty well controlled with initiation of hyoscyamine (Levsin). She used two doses yesterday and one so far this morning. She has not taken any hydromorphone since 07/04 at about 6:00 p.m. Butrans patch is in place on her left deltoid region. It has been decided to hold off on EGD as previously discussed and she will likely discharge from the hospital today. OBJECTIVE Physical Exam Temperature: [36.6 ??C-36.9 ??C] 36.7 ??C Resp Rate: [16-18] 16 Blood Pressure: (119-141)/(75-94) 119/83 SpO2: [94 %-98 %] 98 % Pulse Rate: [73-98] 89 Physical Exam General: Sitting up, able to participate in conversation. No apparent acute distress. Skin: Warm, dry, normal turgor. Lungs: No accessory muscle use, retractions, or grunting. Neuro/Psych: Affect appropriate for situation. Alert, calm, oriented to person, place, time, and attentive to content of conversation. ASSESSMENT / PLAN #1 Pain Left Lower Quadrant #2 Palliative Care Z51.5 Summary She will likely discharge later today. She has a adequate supply of her buprenorphine patches at home and still has some hydromorphone left over. Given that she was using equivalents of 80 or more OME with that prior to discontinuation, I did caution her that if she starts to feel symptoms of opioid withdrawal (for example anxiety, diarrhea, sudden resurgence of nausea or chills) in the next couple of days, this may be ameliorated by taking a single dose of the hydromorphone and watching closely; she voiced understanding. For now she is managing the abdominal cramping symptoms with hyoscyamine and nausea with olanzapine. She is scheduled to return to our outpatient palliative care clinic onJuly 14 and knows how to reach us with questions or concerns prior to that date. Thank you for the opportunity to participate in caring for Ms. Martinez. Ermelinda Woodward APRN, C.N.P. * Jessica Avila, KARON, C.N.P., M.S.N. - 07/06/2025 7:39 AM CDT SUBJECTIVE TRANSPLANT PHYSICIAN Dr. Jessica Rousseau, pager [phone]. 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 She presents for admission to inpatient BMT service for further management of persistent abdominal pain, nausea and vomiting, and chills. Currently day 208 Post Transplant Course: Admitted 12/19/2024-12/27/2024 due to mucositis which was managed with supportive cares and CPN. Improved with ANC recovery. Enterobacter cloacae UTI, treated with Ciprofloxacin Admitted 05/28/2025 to 05/29/2025 for nausea and abdominal pain. She was initiated on Prednisone 60mg PO daily with noted improvement in nausea. EGD obtained 06/01/2025 with pathology negative for GVHD. Admitted 06/12/2025 to 06/13/2025 for abdominal pain, abdominal CT was obtained and noted to be without acute findings. She was discharged on Docusate BID and Senna PRN. Admitted 06/24/2025 to 06/27/2025 for persistent abdominal pain. CT Abd/Pelvic was obtained withoutacute findings; ultrasound of the gallbladder demonstrated diffuse hepatic steatosis with geographic fatty bearing in the gallbladder fossa; Transvaginal US Pelvis was without sonographic correlationfor patient's pain. EGD/Flex was obtained 06/26/2025 with noted oral thrush, gastritis, non-bleeding gastric ulcer, and duodenitis. Pathology demonstrated scattered apoptosis in the colonic mucosa, indeterminate for GVHD in the colon. EVENTS PRIOR TO ADMISSION Ms Radha Martinez presents for admission for further management of persistent abdominal pain. She was recently admitted from 06/24 through 06/27/2025 for management of similar symptoms. She underwent EGD/Flex sig on 06/26/2025 with pathology demonstrating scattered apoptosis in the colonic mucosa, indeterminate for GVHD. Per Dr Rousseau, Ms Martinez was initiated on Prednisone 40 mg PO daily On admission Ms Martinez endorses ongoing abdominal pain, primarily left lower quadrant, which she reports as a 6 out of 10 in severity upon presentation. She notes she has been utilizing oral Dilaudid as needed, which she reports is helpful for approximately 45 minutes before pain returns to a 6 to 7 out of 10 in severity. She received IV Morphine in both the ED and on Station 9-4, and she notesthis was more helpful. She continues on Butrans patch her Palliative Medicine. She endorses feeling intermittently nauseated since recent hospitalization for which she has been utilizing oral Compazine and oral Zofran as needed. She notes severity of nausea seems to be up and down, and she shares that she vomited twice today. She reports intermittent diarrhea, noting that stools alternate in consistency between formed and loose, and she does not feel that episodes of diarrhea correlate with timing of nausea. She notes new onset urinary urgency as of this morning withoutassociated urinary frequency, hematuria, dysuria, or flank pain. She denies recents fevers, though endorses an episode of shaking chills this afternoon that lasted for approximately two hours before abating. Events over the last 24 hrs This morning patient reports feeling somewhat better. Pain to L side of the abdomen is less intenseand she does not feel nauseated. Her oral food and fluid intake is stable. She is currently taking Dilaudid for abdominal pain, dose decreased from 4 mg q 3 hrs prn to 4 mg q4 hrs yesterday and will further decrease to 3 mg q 4 hrs prn. She also continues on low dose Buprenorphine patch. Nausea appears well managed with Olanzapine 5 mg qhs and Palliative care is following. No recent vomiting. She is clinically stable and denies shortness of breath, headaches or dizziness. Pt remains afebrile (on steroids) Reported chest /esophageal pain this morning . ECG was unremarkable , troponin negative .It appearsshe has esophageal pain mostly at night or early interventionist. In the future she will take Maalox for symptoms relief. She will also continue on Protonix BID REVIEW OF SYSTEMS As above OBJECTIVE I/O Intake/Output Summary (Last 24 hours) at 07/06/2025 0739 Last data filed at 07/06/2025 0300 Gross per 24 hour Intake 1170 ml Output 1600 ml Net -430 ml VITAL SIGNS Temperature: [36.6 ??C-36.9 ??C] 36.7 ??C Resp Rate: [16-18] 16 Blood Pressure: (122-141)/(75-94) 123/81 SpO2: [94 %-98 %] 94 % Pulse Rate: [73-98] 85 PHYSICAL EXAMINATION General: Nontoxic female in no acute distress. Eyes: Anicteric sclera, EOMI, PERRLA. Right eye esotropia. Mouth: Oral mucosa moist, without noted ulceration or lesions. Heart: RRR, S1, S2, no S3, no S4 Lungs: Chest clear bilaterally No rales, wheezing, or rhonchi. Abdomen: Soft, no distention. Bowel sounds present and active in all quadrants. Mild tenderness with palpation to left lower quadrant, no rebound tenderness or guarding. Skin: Warm, dry, and intact. No acute rashes or lesions. Extremities: Atraumatic, no deformity. No bilateral lower extremity edema or bilateral calf tenderness. Neuro: CN 2 through 12 grossly intact with appropriate speech and affect Mental: Alert and oriented to person, place, time, and situation KPS 80% DIAGNOSTICS I have reviewed the recent relevant Diagnostics Recent Results (from the past 24 hours) EBV DNA Detect/Quant Collection Time: 07/06/25 5:47 AM Specimen: Blood, Venous Result Value EBV DNA Detect/Quant, P Undetected Comprehensive Metabolic Panel Collection Time: 07/06/25 5:47 AM Result Value Potassium, S 4.1 Sodium, S 140 Chloride, S 103 Bicarbonate, S 24 Anion Gap 13 BUN (Blood Urea Nitrogen), S 14 Creatinine 0.77 Estimated GFR (eGFR) >90 Calcium, Total, S 8.8 Glucose, S 143 (H) Protein, Total, S 6.1 (L) Albumin, S 3.8 Aspartate Aminotransferase (AST), S 14 Alkaline Phosphatase, S 102 Alanine Aminotransferase (ALT), S 20 Bilirubin, Total, S <0.2 Magnesium Collection Time: 07/06/25 5:47 AM Result Value Magnesium, S 2.1 Phosphorus Inorganic Collection Time: 07/06/25 5:47 AM Result Value Phosphorus (Inorganic), S 4.4 Antibody Screen, RBC (with reflex Antibody ID) Collection Time: 07/06/25 5:47 AM Result Value Antibody Screen Negative CBC no call back, reflex T/S HGB <8 Collection Time: 07/06/25 5:47 AM Result Value Hemoglobin 10.7 (L) Hematocrit 34.2 (L) Erythrocytes 4.03 MCV 84.9 RBC Distrib Width 14.7 Platelet Count 210 Leukocytes 7.0 Neutrophils 5.32 Lymphocytes 1.19 Monocytes 0.46 Eosinophils 0.03 Basophils 0.04 Troponin T, Baseline with 2 Hour/6 Hour Reflex Biomarker Panel Collection Time: 07/06/25 8:01 AM Result Value Troponin T, Baseline, 5th gen <6 Troponin T, 2 Hour with 6 Hour Reflex, 5th Gen Collection Time: 07/06/25 10:24 AM Result Value Troponin T, 2 hr, 5th gen <6 2H Delta 0 2H Delta Interp Not Changing ASSESSMENT / PLAN Plan: Taper Dilaudid Taper Prednisone Bowel regimen Continue Levsin Anticipate discharge today # Diffuse Abdominal Pain, worse to LLQ # Persistent Nausea and Vomiting since early 05/2025; Query GI GVHD, R/O other etiologies IMAGING/LABS - C-diff negative from 05/17. PRN Imodium as needed. - Infectious work-up with peripheral blood cultures from 05/17 NGTD. Lactate 1.6, nonelevated. - 05/28/25 CT abdomin/pelvis: no abnormal findings. - 06/01/25 EGD with biopsy negative for GVHD. - Repeat 06/12/25 CT revealed no acute abnormalities, moderate stool burden. - 06/24/2025 CT Abd/pelvis/chest, normal with previous resolution of the ground- glass opacities from 06/05/2025. - HCG negative 06/25/25. - 06/25 right upper quadrant ultrasound and transvaginal pelvic ultrasound unrevealing for etiology of abdominal pain; Noted hepatic steatosis. - EGD and Flex Sigmoidoscopy obtained 06/26/2025 demonstrating oral thrush, gastritis, non-bleedinggastric ulcer, and duodenitis. Pathology demonstrating scattered apoptosis in colonic mucosa, indeterminate for GVHD. - CT abd/pelvis angiogram enterography obtained 06/30/2025 negative for large or small bowel inflammation of imaging abnormality, no marked splenomegaly. - Amylase and lipase noted to be WNL GGT is 41, slightly over limits (to 36). - Surveillance blood cultures negative - Initial lactate resulted mildly elevated at 2.3 mmol/L, improved to 1.2 mmol/L after 1 liter 0.9%NS bolus. - Urinalysis and urine culture mostly normal with a glucose of 300 and ketone of 5. Urine culture negative. 07/03 CRP<3, Proteinase 3 Ab <0.2, Myeloperoxidae <0.2 - Porphyria, C3, C4, C1 esterase, ANCA pending TREATMENT - Initiated Budesonide 05/20/2025; increased to 6 mg daily 06/24/2025; discontinued 06/22/[address] Rousseau. - S/p Prednisone burst from 05/28 to 06/20/2025 with no significant improvement in her symptoms. - Continue Pantoprazole 40 mg PO BID. - 07/04/25 Continue Dilaudid PO PRN. 07/04 dose 4 mg q 3 hrs, will decrease frequency to q 4 hrs as she is drowsy and constipated . 07/05 Dilaudid further decreased to 3 mg q 4 hrs with plan to taper based on symptoms 07/06 will decrease Dilaudid to 2 mg q 6 hrs Will continue on Buprenorphine patch - Prednisone burst re-initiated 07/02/2025 with Prednisone 40 mg PO daily; will start tapering by 10 mg q week on 07/06 - Given one-time dose of IV Morphine upon admission, appreciated Palliative Medicine recs for additional pain management. - Script for [employer] sent for prior authorization on 07/02/2025; Awaiting approval. - 07/05/25 started on Levsin with improvement in symptoms CONSULTS - Planned for outpatient [facility] consult on 08/11/2025; Inpatient consultation requested, appreciate formal recs. - Palliative Medicine consulted, appreciate formal recs. - Per GI recs will request GI Psych consult as an outpatient # Nausea/Vomiting # Diarrhea - diarrhea resolved as of 07/03 - Oral or IV Compazine available PRN. - Will hold on giving IV Kytril given constipation, see Palliative care note initiated on 07/03/2025. - Added Olanzapine 5 mg HS and 2.5 mg QID prn. # Stool [place] on CT - Will start titration of medications to help with bowel movements. - Start by holding Zofran and Kytril. - Per GI and Palliative care, started MiraLAX daily and Senna 2 tabs BID, may increase as needed. - May also consider adding Linzess per GI (72 mcg-290 mcg). - 07/04 Dulcolax two doses and Lactulose in addition to MiraLAX and Senokot . - tap H2O enema with good results # Oral Thrush - Noted per EGD from 06/26/2025 as noted above. - Initiated Clotrimazole troches on 06/26/2025, transitioned to oral Nystatin per patient preference on 06/27/2025 (EOT: 07/03/2025). # Esophageal/Chest pain - resolved - Pain is sharp 5-7 x day, intermittent and resolves on its own. - Cardiac work up at the local facility was negative - Etiology unclear possibly related to steroids (onset after starting Prednisone) and exacerbated by EGD. - 06/07/[address] was negative for PE. She continued with chest pressure/pain. - 06/25 Echocardiogram to [...] cell transplant (HCC) on 12/10/24, currently day 206 # Immunodeficiency (HCC) secondary immunosuppressive medication - Sort chimerism from 02/03/2025 showed 40% donor DNA in the CD3 fraction and 100% donor DNA in the CD33 fraction. - Bone marrow biopsy done on 02/18/25, MRD negative, Non sorted chimerism 100 % donor ( 3 loci) and BCR/ABL1 p210 mRNA negative. - Day +100 Peripheral sort chimerism 03/10/2025 CD3 fraction contains 60% donor DNA and CD33 fraction 100% contains 100% donor DNA. - Continue to check RT PCR BCR-ABL on peripheral blood every 6 weeks, most recently undetected on 06/23/25. - Peripheral sort chimerism on 04/29: CD33 100% donor DNA and 0% recipient DNA. - Last BM Bx from 02/18/25 was normal, no BCR-ABL1 detected. - BM biopsy June 15, 2025- MRD negative. - Bone marrow biopsy 06/15/2025 MRD negative, - 06/23/2025 BCR-ABL P 2 10 negative, sort chimerism CD3 90% donor DNA, CD33 100% donor DNA. 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 - Tacrolimus discontinued 04/17/2025. - EGD and Flex Sigmoidoscopy obtained 06/26/2025 demonstrating oral thrush, gastritis, non-bleedinggastric ulcer, and duodenitis. Pathology demonstrating scattered apoptosis in colonic mucosa, indeterminate for GVHD. - Initiated Prednisone burst 40 mg PO daily as of 07/02/[address] Rousseau---> dose decreased to 30 mg on 07/06 , plan to taper by 10 mg q week ACUTE GVHD (CIBMTR CRITERIA) Current Severity 07/02/25 Skin Stage Stage 0 (No GVHD rash) Liver Stage Stage 0 (Normal bilirubin) Gut Stage Stage 0 (Diarrhea <500 mL/day) nausea Overall Grade Grade 0 (No acute GVHD) Change from previous evaluation: improved Maximum overall grade (and date): Late aGVHD: Other comments: Diagnostic tests: S/p EGD and Flex Sig 06/26/2025 with scattered apoptosis noted to colonic mucosa,indeterminate for GVHD. Treatment : Prednisone 40 mg PO daily initiated 07/02/2025 Response to tt : # Antimicrobial Prophylaxis - Continues on Acyclovir, Penicillin VK, Bactrim, and Posaconazole. - It should be noted she received two doses of Shingrix already. # Insomnia - Continues on Melatonin 5 mg qHS. - Ativan on hold with buprenorphine patch on 05/28/2025. - Olanzapine should help with this as well. # Peripheral neuropathy - Continues on buprenorphine patch 5 mcg and hydromorphone PRN. - Patient is tapering gabapentin, currently takes BID ( not sure of the dose). Consider restarting this per GI. - Previous discussion that hydromorphone should not be used for chronic pain. Hydromorphone was refilled for short tem pain relief per palliative. Goal to wean off hydromorphone with starting buprenorphine patch. - On admission Dilaudid increased to 4 mg q 3 hrs prn . Will decrease the dose as tolerated. # Vitamin D Deficiency - Continues on Vitamin D supplement 2000 units daily. # Generalized Anxiety Disorder # Major Depressive Disorder, recurrent episode, mild - Saw Transplant Psychiatry on 01/19/25. - Continues on Abilify 10 mg PO daily and duloxetine 120 mg daily. - Hold CBD oral oil during transplant. - 07/04 Will discuss tomorrow on rounds restarting CBD oil - S/p Psychiatry consult 06/25/2025 without evidence of somatization process. Trial Atarax PRN for anxiety. 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 Has only peripheral vision in right eye. Wears glasses. - Followed by [facility] in [place], [place]. - Patient will notify team if any vision changes. # Blood Products # TACO - Requires infusion of platelets at a slower rate. # CMV- last checked 07/06/25 pending # EBV - last checked 07/06/25 negative # Disposition Pt will be discharged home today. Plan to follow up with dr Rousseau in 2-3 weeks Also requested GI Psych consult Activity: PAMP Level 4 (walks frequently) VTE Prophylaxis: Enoxaparin 40 mg subcutaneous once daily Blood Transfusions: Patient signed [id number] on 11/03/2024. Surrogate Decision Maker: Significant Other, Charles Minor Code Status: FULL CODE Jessica Avila APRN, C.N.P., M.S.N. * Geo Mcdowell M.D., Ph.D. - 07/05/2025 9:57 AM CDT I visited and evaluated the patient and agree with the history, physical exam, assessment and plan as documented by Ms. Avila in her note of July 05, 2025. Ms. Martinez continues to have discomfort in her abdomen. Yesterday she did have a bowel movement in the discomfort is better. Intermittently she feels bloated. No nausea or vomiting. The testing has been either negative or reassuring and this was discussed in detail with Ms. Martinez. In an effort to minimize the use of opioids, we will start Levsin to control smooth muscle spasmin the abdomen. If the pain improves we will try to taper the opioid slowly. The rest is per Ms. Avila. * Jessica Avila APRN, C.N.P., M.S.N. - 07/05/2025 7:41 AM CDT SUBJECTIVE TRANSPLANT PHYSICIAN Dr. Jessica Rousseau, pager [phone]. 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 She presents for admission to inpatient BMT service for further management of persistent abdominal pain, nausea and vomiting, and chills. Currently day 207 Post Transplant Course: Admitted 12/19/2024-12/27/2024 due to mucositis which was managed with supportive cares and CPN. Improved with ANC recovery. Enterobacter cloacae UTI, treated with Ciprofloxacin Admitted 05/28/2025 to 05/29/2025 for nausea and abdominal pain. She was initiated on Prednisone 60mg PO daily with noted improvement in nausea. EGD obtained 06/01/2025 with pathology negative for GVHD. Admitted 06/12/2025 to 06/13/2025 for abdominal pain, abdominal CT was obtained and noted to be without acute findings. She was discharged on Docusate BID and Senna PRN. Admitted 06/24/2025 to 06/27/2025 for persistent abdominal pain. CT Abd/Pelvic was obtained withoutacute findings; ultrasound of the gallbladder demonstrated diffuse hepatic steatosis with geographic fatty bearing in the gallbladder fossa; Transvaginal US Pelvis was without sonographic correlationfor patient's pain. EGD/Flex was obtained 06/26/2025 with noted oral thrush, gastritis, non-bleeding gastric ulcer, and duodenitis. Pathology demonstrated scattered apoptosis in the colonic mucosa, indeterminate for GVHD in the colon. EVENTS PRIOR TO ADMISSION Ms Radha Martinez presents for admission for further management of persistent abdominal pain. She was recently admitted from 06/24 through 06/27/2025 for management of similar symptoms. She underwent EGD/Flex sig on 06/26/2025 with pathology demonstrating scattered apoptosis in the colonic mucosa, indeterminate for GVHD. Per Dr Rousseau, Ms Martinez was initiated on Prednisone 40 mg PO daily On admission Ms Martinez endorses ongoing abdominal pain, primarily left lower quadrant, which she reports as a 6 out of 10 in severity upon presentation. She notes she has been utilizing oral Dilaudid as needed, which she reports is helpful for approximately 45 minutes before pain returns to a 6 to 7 out of 10 in severity. She received IV Morphine in both the ED and on Station 9-4, and she notesthis was more helpful. She continues on Butrans patch her Palliative Medicine. She endorses feeling intermittently nauseated since recent hospitalization for which she has been utilizing oral Compazine and oral Zofran as needed. She notes severity of nausea seems to be up and down, and she shares that she vomited twice today. She reports intermittent diarrhea, noting that stools alternate in consistency between formed and loose, and she does not feel that episodes of diarrhea correlate with timing of nausea. She notes new onset urinary urgency as of this morning withoutassociated urinary frequency, hematuria, dysuria, or flank pain. She denies recents fevers, though endorses an episode of shaking chills this afternoon that lasted for approximately two hours before abating. Events over the last 24 hrs This morning patient reports feeling somewhat better. Pain to L side of the abdomen is less intenseand she does not feel nauseated. Her oral food and fluid intake is stable. She felt constipated forthe last two days and despite using aggressive bowel regimen yesterday ( including lactulose, MiraLAX x 2, Senokot BID and Dulcolax x 2 ) she was not able to have bowel movement. Constipation resolved this morning after tap water enema. She is currently taking Dilaudid for abdominal pain, dose decreased from 4 mg q 3 hrs prn to 4 mg q4 hrs yesterday and will further decrease to 3 mg q 4 hrs prn. She also continues on low dose Buprenorphine patch. Nausea appears well managed with Olanzapine 5 mg qhs and Palliative care is following. No recent vomiting. She is clinically stable and denies shortness of breath, chest pain, headaches or dizziness. Pt remains afebrile ( on steroids) REVIEW OF SYSTEMS As above OBJECTIVE I/O Intake/Output Summary (Last 24 hours) at 07/05/2025 0741 Last data filed at 07/05/2025 0600 Gross per 24 hour Intake 880 ml Output 3100 ml Net -2220 ml VITAL SIGNS Temperature: [36.5 ??C-36.9 ??C] 36.5 ??C Resp Rate: [16] 16 Blood Pressure: (118-158)/(74-89) 118/74 SpO2: [94 %-96 %] 94 % Pulse Rate: [79-92] 88 PHYSICAL EXAMINATION General: Nontoxic female in no acute distress. Eyes: Anicteric sclera, EOMI, PERRLA. Right eye esotropia. Mouth: Oral mucosa moist, without noted ulceration or lesions. Heart: RRR, S1, S2, no S3, no S4 Lungs: Chest clear bilaterally No rales, wheezing, or rhonchi. Abdomen: Soft, no distention. Bowel sounds present and active in all quadrants. Tenderness with palpation to left lower quadrant, no rebound tenderness or guarding. Skin: Warm, dry, and intact. No acute rashes or lesions. Extremities: Atraumatic, no deformity. No bilateral lower extremity edema or bilateral calf tenderness. Neuro: CN 2 through 12 grossly intact with appropriate speech and affect Mental: Alert and oriented to person, place, time, and situation KPS 80% DIAGNOSTICS I have reviewed the recent relevant Diagnostics Results from last 7 days Lab Units 07/05/25 00507/04/25 0531 07/02/25 2140 HEMOGLOBIN g/dL 10.5* 10.5* 11.8 HEMATOCRIT % 32.3* 33.0* 36.3 RBC AUTO x10(12)/L 3.90* 3.88* 4.34 MCV fL 82.8 85.1 83.6 RBC DISTRIBUTION WIDTH AUTO % 14.6 14.5 14.5 WBC x10(9)/L 6.8 5.9 6.9 NEUTROPHILS AUTO x10(9)/L 5.06 4.28 5.49 PLATELETS AUTO x10(9)/L 182 183 225 Results from last 7 days Lab Units 07/05/25 0052 07/04/25 0531 07/02/25 2139 06/30/25 1041 06/30/25 1041 06/30/25 1040 SODIUM mmol/L 139 140 137 < > 141 -- CHLORIDE mmol/L 103 103 103 -- -- -- BUN mg/dL 10 10 14 < > 12 -- CREATININE mg/dL 0.80 0.79 0.75 < > 0.84 -- CALCIUM mg/dL 9.1 9.0 9.5 < > 9.3 -- ALBUMIN g/dL -- -- 4.3 -- 4.3 -- BILIRUBIN TOTAL P mg/dL -- -- -- -- -- 0.2 BILIRUBIN TOTAL mg/dL -- -- <0.2 -- -- -- ALK PHOS U/L -- -- 98 -- 97 -- ALT U/L -- -- 40 -- 32 -- AST P U/L -- -- -- -- -- 21 AST U/L -- -- 25 -- -- -- GLUCOSE mg/dL -- -- -- -- 164* -- GLUCOSE S mg/dL 126 128 169* -- -- -- < > = values in this interval not displayed. ASSESSMENT / PLAN Plan: Taper Dilaudid Taper Prednisone Bowel regimen Start Levsin Anticipate discharge in 1-2 days # Diffuse Abdominal Pain, worse to LLQ # Persistent Nausea and Vomiting since early 05/2025; Query GI GVHD, R/O other etiologies IMAGING/LABS - C-diff negative from 05/17. PRN Imodium as needed. - Infectious work-up with peripheral blood cultures from 05/17 NGTD. Lactate 1.6, nonelevated. - 05/28/25 CT abdomin/pelvis: no abnormal findings. - 06/01/25 EGD with biopsy negative for GVHD. - Repeat 06/12/25 CT revealed no acute abnormalities, moderate stool burden. - 06/24/2025 CT Abd/pelvis/chest, normal with previous resolution of the ground- glass opacities from 06/05/2025. - HCG negative 06/25/25. - 06/25 right upper quadrant ultrasound and transvaginal pelvic ultrasound unrevealing for etiology of abdominal pain; Noted hepatic steatosis. - EGD and Flex Sigmoidoscopy obtained 06/26/2025 demonstrating oral thrush, gastritis, non-bleedinggastric ulcer, and duodenitis. Pathology demonstrating scattered apoptosis in colonic mucosa, indeterminate for GVHD. - CT abd/pelvis angiogram enterography obtained 06/30/2025 negative for large or small bowel inflammation of imaging abnormality, no marked splenomegaly. - Amylase and lipase noted to be WNL GGT is 41, slightly over limits (to 36). - Surveillance blood cultures negative - Initial lactate resulted mildly elevated at 2.3 mmol/L, improved to 1.2 mmol/L after 1 liter 0.9%NS bolus. - Urinalysis and urine culture mostly normal with a glucose of 300 and ketone of 5. Urine culture negative. 07/03 CRP<3, Proteinase 3 Ab <0.2, Myeloperoxidae <0.2 - Porphyria, C3, C4, C1 esterase, ANCA pending TREATMENT - Initiated Budesonide 05/20/2025; increased to 6 mg daily 06/24/2025; discontinued 06/22/[address] Rousseau. - S/p Prednisone burst from 05/28 to 06/20/2025 with no significant improvement in her symptoms. - Continue Pantoprazole 40 mg PO BID. - 07/04/25 Continue Dilaudid PO PRN. 07/04 dose 4 mg q 3 hrs, will decrease frequency to q 4 hrs as she is drowsy and constipated . 07/05 Dilaudid further decreased to 3 mg q 4 hrs with plan to taper based on symptoms Will continue on Buprenorphine patch - Prednisone burst re-initiated 07/02/2025 with Prednisone 40 mg PO daily; will start tapering by 10 mg q week on 07/06 - Given one-time dose of IV Morphine upon admission, appreciated Palliative Medicine recs for additional pain management. - Script for [employer] sent for prior authorization on 07/02/2025; Awaiting approval. - 07/05/25 started on Levsin CONSULTS - Planned for outpatient [facility] consult on 08/11/2025; Inpatient consultation requested, appreciate formal recs. - Palliative Medicine consulted, appreciate formal recs. # Nausea/Vomiting # Diarrhea - diarrhea resolved as of 07/03 - Oral or IV Compazine available PRN. - Will hold on giving IV Kytril given constipation, see Palliative care note initiated on 07/03/2025. - Added Olanzapine 5 mg HS and 2.5 mg QID prn. # Stool [place] on CT - Will start titration of medications to help with bowel movements. - Start by holding Zofran and Kytril. - Per GI and Palliative care, started MiraLAX daily and Senna 2 tabs BID, may increase as needed. - May also consider adding Linzess per GI (72 mcg-290 mcg). - 07/04 Dulcolax two doses and Lactulose in addition to MiraLAX and Senokot . - tap H2O enema with good results # Oral Thrush - Noted per EGD from 06/26/2025 as noted above. - Initiated Clotrimazole troches on 06/26/2025, transitioned to oral Nystatin per patient preference on 06/27/2025 (EOT: 07/03/2025). # Esophageal/Chest pain - resolved - Pain is sharp 5-7 x day, intermittent and resolves on its own. - Cardiac work up at the local facility was negative - Etiology unclear possibly related to steroids (onset after starting Prednisone) and exacerbated by EGD. - 06/07/[address] was negative for PE. She continued with chest pressure/pain. - 06/25 Echocardiogram to [...] cell transplant (HCC) on 12/10/24, currently day 206 # Immunodeficiency (HCC) secondary immunosuppressive medication - Sort chimerism from 02/03/2025 showed 40% donor DNA in the CD3 fraction and 100% donor DNA in the CD33 fraction. - Bone marrow biopsy done on 02/18/25, MRD negative, Non sorted chimerism 100 % donor ( 3 loci) and BCR/ABL1 p210 mRNA negative. - Day +100 Peripheral sort chimerism 03/10/2025 CD3 fraction contains 60% donor DNA and CD33 fraction 100% contains 100% donor DNA. - Continue to check RT PCR BCR-ABL on peripheral blood every 6 weeks, most recently undetected on 06/23/25. - Peripheral sort chimerism on 04/29: CD33 100% donor DNA and 0% recipient DNA. - Last BM Bx from 02/18/25 was normal, no BCR-ABL1 detected. - BM biopsy June 15, 2025- MRD negative. - Bone marrow biopsy 06/15/2025 MRD negative, - 06/23/2025 BCR-ABL P 2 10 negative, sort chimerism CD3 90% donor DNA, CD33 100% donor DNA. 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 - Tacrolimus discontinued 04/17/2025. - EGD and Flex Sigmoidoscopy obtained 06/26/2025 demonstrating oral thrush, gastritis, non-bleedinggastric ulcer, and duodenitis. Pathology demonstrating scattered apoptosis in colonic mucosa, indeterminate for GVHD. - Initiated Prednisone burst 40 mg PO daily as of 07/02/[address] Rousseau; Anticipate tapering every 5 to 10 mg every week if symptoms resolve/improve. ACUTE GVHD (CIBMTR CRITERIA) Current Severity 07/02/25 Skin Stage Stage 0 (No GVHD rash) Liver Stage Stage 0 (Normal bilirubin) Gut Stage Stage 0 (Diarrhea <500 mL/day) nausea Overall Grade Grade 0 (No acute GVHD) Change from previous evaluation: improved Maximum overall grade (and date): Late aGVHD: Other comments: Diagnostic tests: S/p EGD and Flex Sig 06/26/2025 with scattered apoptosis noted to colonic mucosa,indeterminate for GVHD. Treatment : Prednisone 40 mg PO daily initiated 07/02/2025 Response to tt : # Antimicrobial Prophylaxis - Continues on Acyclovir, Penicillin VK, Bactrim, and Posaconazole. - It should be noted she received two doses of Shingrix already. # Insomnia - Continues on Melatonin 5 mg qHS. - Ativan on hold with buprenorphine patch on 05/28/2025. - Olanzapine should help with this as well. # Peripheral neuropathy - Continues on buprenorphine patch 5 mcg and hydromorphone PRN. - Patient is tapering gabapentin, currently takes BID ( not sure of the dose). Consider restarting this per GI. - Previous discussion that hydromorphone should not be used for chronic pain. Hydromorphone was refilled for short tem pain relief per palliative. Goal to wean off hydromorphone with starting buprenorphine patch. - 07/04 Dilaudid 4 mg q 3 hrs will decrease to 4 mg q 4 hrs with plan for further taper as tolerated # Vitamin D Deficiency - Continues on Vitamin D supplement 2000 units daily. # Generalized Anxiety Disorder # Major Depressive Disorder, recurrent episode, mild - Saw Transplant Psychiatry on 01/19/25. - Continues on Abilify 10 mg PO daily and duloxetine 120 mg daily. - Hold CBD oral oil during transplant. - 07/04 Will discuss tomorrow on rounds restarting CBD oil - S/p Psychiatry consult 06/25/2025 without evidence of somatization process. Trial Atarax PRN for anxiety. 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 Has only peripheral vision in right eye. Wears glasses. - Followed by [facility] in [place], [place]. - Patient will notify team if any vision changes. # Blood Products # TACO - Requires infusion of platelets at a slower rate. # CMV- last checked 06/03/2025 # EBV - last checked March 2025 # Disposition Pt will remain inpatient till clinically improved Activity: PAMP Level 4 (walks frequently) VTE Prophylaxis: Enoxaparin 40 mg subcutaneous once daily Blood Transfusions: Patient signed [id number] on 11/03/2024. Surrogate Decision Maker: Significant Other, Charles Minor Code Status: FULL CODE Jessica Avila APRN, C.Niko.Delbert, M.S.N. * Geo Mcdowell M.D., Ph.D. - 07/04/2025 9:40 AM CDT I visited and evaluated the patient and agree with the history, physical exam, assessment and plan as documented by Ms. Avila in her note of July 04, 2025. Ms. Martinez continues to have discomfort to the left of her umbilicus. She has been constipated for several days. No fever, chills or sweats. Mild nausea but no vomiting. No rash or itching. On exam she is has some mild tenderness with no rebound, guarding or rigidity. No cutaneous hypersensitivity. CRP and ANCA are negative. The imaging has been quite reassuring. We discussed with her the importance of avoiding NSAIDs and he has received at least 1 dose while in the hospital. We will eliminate this medication from her list. Additional testing is pending. We will try to optimize her bowel regimen to ensure a bowel movement. Clinically the colon does notappear to be loaded with feces. Input from our colleagues in the palliative Care Service is greatly appreciated. * Karen Arellano P.A.-C. - 07/04/2025 9:07 AM CDT [facility] PALLIATIVE CARE PROGRESS NOTE PATIENT: Radha Martinez; 35 y.o.female LOCATION TYPE: Hospital - General Floor LOCATION: -P CHIEF COMPLAINT/REASON FOR VISIT Symptom Management SUBJECTIVE Patient with CML status post unrelated stem cell transplant. Patient admitted with abdominal pain and nausea has had multiple hospitalizations for similar symptomology with no clear etiology. Inconclusive data for [id number] prednisone started 07-02-25. Nausea better today compared to yesterday with the auricular beads, the queasease, and olanzapine. Used scheduled plus prn dose last night. Does feel sleepier today compared to yesterday. Of note previously said Zofran was not helpful, she wonders if this is because she had emesis after Zofran oraland was never able to absorb it. Continues to have abdominal pain. Improved with Dilaudid but wears off. Primary team visited this a.m. and hopes to wean dilaudid. Radha in agreement. Discussed lowering the dose vs spacing out the doses and her preference is to space out the doses. Last bowel movement Sunday. Radha feels constipated and bloated. No new abdominal discomfort and is passing gas. OBJECTIVE PHYSICAL EXAMINATION Temperature: [36.4 ??C-37 ??C] 36.8 ??C Resp Rate: [16-18] 16 Blood Pressure: (114-147)/(74-88) 132/74 SpO2: [95 %-98 %] 96 % Pulse Rate: [74-82] 80 Physical Exam Constitutional General: She is not in acute distress. Pulmonary Effort: Pulmonary effort is normal. Abdominal Palpations: Abdomen is soft. Good bowel sounds Tenderness: There is abdominal tenderness in lower abdomen. Skin General: Skin is warm. Neurological General: No focal deficit present. Mental Status: She is alert and oriented to person, place, and time. Psychiatric Mood and Affect: Mood normal. Behavior: Behavior normal. DIAGNOSTICS MEDICATIONS/DIAGNOSTICS: Relevant results in the last 24 hours reviewed. ASSESSMENT / PLAN #1 Pain Left Lower Quadrant #X Palliative Care Z51.5 SUMMARY: Overall nausea appears improved with olanzapine. I am uncertain if this is contributing to side effects. Did get a total of 7.5 mg yesterday evening. We discussed decreasing this medication. However she does feel its helpful and would like to continue at current doses while monitoring how she is feeling. Discussed pain regimen with primary team. Despite full work up no definitive source of pain/nausea.Agree with working on constipation. Primary team hopeful to wean the opioid therapy to which Lincolnclaudiaalanis agreeable with. Plan will be for EGD hopefully Sunday to get further sense on etiology of discomfort. RECOMMENDATIONS: Continue olanzapine at current doses. If patient/team becomes concerned about side effect: -Decrease Olanzapine to 2.5 mg QHS -Consider retrial of Zofran prn for nausea. (Patient wonders if not helpful 2/2 emesis after Zofran) -Zofran or kytril will increase risk of constipation so continue to monitor that. Constipation -per primary team. Can increase to 3 tabs Senna BID plus MiraLAX BID. Agree with enema if no BM. -Goal for one soft but firm BM per day. Pain: -Patient agreeable to spacing out Dilaudid to 4 mg q 4 hrs prn for pain. -Continue Butrans (I would not consider decreasing Butrans until dilaudid daily dose is significantly reduced) In discussion with primary team we will not see tomorrow but will follow up on Sunday. Please call if questions sooner. Thank you for the opportunity to participate in caring for Ms. Martinez. We will continue to followalong. Please do not hesitate to contact Palliative Medicine M ([phone]) with any questions or concerns. Total time spent was 70 minutes. Karen Arellano P.A.-C. * Jessica Avila APRN, C.N.P., M.S.N. - 07/04/2025 7:06 AM CDT SUBJECTIVE TRANSPLANT PHYSICIAN Dr. Jessica Rousseau, pager [phone]. 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 She presents for admission to inpatient BMT service for further management of persistent abdominal pain, nausea and vomiting, and chills. Currently day 206 Ms. Martinez is a 35 y.o. 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 At the time of diagnosis, there was grade 3 reticulin fibrosis noted. The cytogenetics identified a [place] chromosome in 20 metaphases. The BCR-ABL1 P [...] t(9;22) metaphases. NGS is positive for ASXL1 p.[id number] (20%) and p.[id number]* (3%). 06/17/2024: feeling quite symptomatic since the initiation of bosutinib with fatigue, diarrhea, nausea, and vomiting. Pretransplant Evaluation Cardiac ECG 11/05/24 was normal [...] Access [place] CVC placed on 12/03/24 by [facility]. Social Work Seen and cleared on 10/29/24 [...] recovery. Enterobacter cloacae UTI, treated with Ciprofloxacin Admitted 05/28/2025 to 05/29/2025 for nausea and abdominal pain. She was initiated on Prednisone 60mg PO daily with noted improvement in nausea. EGD obtained 06/01/2025 with pathology negative for GVHD. Admitted 06/12/2025 to 06/13/2025 for abdominal pain, abdominal CT was obtained and noted to be without acute findings. She was discharged on Docusate BID and Senna PRN. Admitted 06/24/2025 to 06/27/2025 for persistent abdominal pain. CT Abd/Pelvic was obtained withoutacute findings; ultrasound of the gallbladder demonstrated diffuse hepatic steatosis with geographic fatty bearing in the gallbladder fossa; Transvaginal US Pelvis was without sonographic correlationfor patient's pain. EGD/Flex was obtained 06/26/2025 with noted oral thrush, gastritis, non-bleeding gastric ulcer, and duodenitis. Pathology demonstrated scattered apoptosis in the colonic mucosa, indeterminate for GVHD in the colon. EVENTS PRIOR TO ADMISSION Ms Radha Martinez presents for admission for further management of persistent abdominal pain. She was recently admitted from 06/24 through 06/27/2025 for management of similar symptoms. She underwent EGD/Flex sig on 06/26/2025 with pathology demonstrating scattered apoptosis in the colonic mucosa, indeterminate for GVHD. Per Dr Rousseau, Ms Martinez was initiated on Prednisone 40 mg PO daily On admission Ms Martinez endorses ongoing abdominal pain, primarily left lower quadrant, which she reports as a 6 out of 10 in severity upon presentation. She notes she has been utilizing oral Dilaudid as needed, which she reports is helpful for approximately 45 minutes before pain returns to a 6 to 7 out of 10 in severity. She received IV Morphine in both the ED and on Station 9-4, and she notesthis was more helpful. She continues on Butrans patch her Palliative Medicine. She endorses feeling intermittently nauseated since recent hospitalization for which she has been utilizing oral Compazine and oral Zofran as needed. She notes severity of nausea seems to be up and down, and she shares that she vomited twice today. She reports intermittent diarrhea, noting that stools alternate in consistency between formed and loose, and she does not feel that episodes of diarrhea correlate with timing of nausea. She notes new onset urinary urgency as of this morning without associated urinary frequency, hematuria, dysuria, or flank pain. She denies recents fevers, though endorses an episode of shaking chillsthis afternoon that lasted for approximately two hours before abating. Ms Martinez denies new onset skin rash or lesions, xerophthalmia or xerostomia, skin tightening or thickening, or new onset joint pain/limited ROM. Events over the last 24 hrs This morning patient reports ongoing L abdominal pain, rated 4-7 on 1/10 scale. She is currently taking Dilaudid 4 mg q 3 hrs and continues on low dose Buprenorphine patch. Appetite is great and her oral intake is stable. She reports intermittent nausea, no recent vomiting. She is currently on Olanzapine 5 mg qhs and and additional dose as needed. She reports constipation today with the last bowel movement two days ago. She is now on MiraLAX daily and senokot BID . Will give additional two doseDulcolax. Pt will also drink prune juice. We have encouraged frequent ambulation as well. Will reassess later today. She is clinically stable and deies shortness of breath, chest pain, headaches or dizziness. Feels drowsy this morning. REVIEW OF SYSTEMS As above OBJECTIVE I/O Intake/Output Summary (Last 24 hours) at 07/04/2025 0706 Last data filed at 07/04/2025 0600 Gross per 24 hour Intake 1230 ml Output 2200 ml Net -970 ml VITAL SIGNS Temperature: [36.4 ??C-37 ??C] 36.7 ??C Resp Rate: [16-18] 18 Blood Pressure: (112-147)/(74-88) 114/74 SpO2: [95 %-98 %] 95 % Pulse Rate: [74-82] 74 PHYSICAL EXAMINATION Constitutional Appearance: She is well-developed. HENT Head: Normocephalic and atraumatic. Mouth/Throat: Mouth: Mucous membranes are moist. Pharynx: Oropharynx is clear. Eyes Conjunctiva/sclera: Conjunctivae normal. Pupils: Pupils are equal, round, and reactive to light. Cardiovascular Rate and Rhythm: Normal rate and regular rhythm. Heart sounds: Normal heart sounds. No murmur heard. No friction rub. No gallop. Pulmonary Effort: Pulmonary effort is normal. No respiratory distress. Breath sounds: Normal breath sounds. No wheezing or rales. Abdominal General: Bowel sounds are normal. Palpations: Abdomen is soft. There is no mass. Tenderness: There is abdominal tenderness. There is no guarding or rebound. Comments: Tenderness to L lower abdomen, no guarding or rebound tenderness Skin General: Skin is warm and dry. Neurological General: No focal deficit present. Mental Status: She is alert and oriented to person, place, and time. Psychiatric Mood and Affect: Mood normal. Behavior: Behavior normal. KPS: 80% DIAGNOSTICS I have reviewed the recent relevant Diagnostics Results from last 7 days Lab Units 07/04/2553007/02/25213906/30/25 1041 HEMOGLOBIN g/dL 10.5* 11.8 12.1 HEMATOCRIT % 33.0* 36.3 37.1 RBC AUTO x10(12)/L 3.88* 4.34 4.46 MCV fL 85.1 83.6 83.2 RBC DISTRIBUTION WIDTH AUTO % 14.5 14.5 14.4 WBC x10(9)/L 5.9 6.9 3.7 NEUTROPHILS AUTO x10(9)/L 4.28 5.49 2.66 PLATELETS AUTO x10(9)/L 183 225 194 Results from last 7 days Lab Units 07/04/2553007/02/25213806/30/25 1041 06/30/25 1040 SODIUM mmol/L 140 137 141 -- CHLORIDE mmol/L 103 103 -- -- BUN mg/dL 10 14 12 -- CREATININE mg/dL 0.79 0.75 0.84 -- CALCIUM mg/dL 9.0 9.5 9.3 -- ALBUMIN g/dL -- 4.3 4.3 -- BILIRUBIN TOTAL P mg/dL -- -- -- 0.2 BILIRUBIN TOTAL mg/dL -- <0.2 -- -- ALK PHOS U/L -- 98 97 -- ALT U/L -- 40 32 -- AST P U/L -- -- -- 21 AST U/L -- 25 -- -- GLUCOSE mg/dL -- -- 164* -- GLUCOSE S mg/dL 128 169* -- -- ASSESSMENT / PLAN # Diffuse Abdominal Pain, worse to LLQ # Persistent Nausea and Vomiting since early 05/2025; Query GI GVHD, R/O other etiologies IMAGING/LABS - C-diff negative from 05/17. PRN Imodium as needed. - Infectious work-up with peripheral blood cultures from 05/17 NGTD. Lactate 1.6, nonelevated. - 05/28/25 CT abdomin/pelvis: no abnormal findings. - 06/01/25 EGD with biopsy negative for GVHD. - Repeat 06/12/25 CT revealed no acute abnormalities, moderate stool burden. - 06/24/2025 CT Abd/pelvis/chest, normal with previous resolution of the ground- glass opacities from 06/05/2025. - HCG negative 06/25/25. - 06/25 right upper quadrant ultrasound and transvaginal pelvic ultrasound unrevealing for etiology of abdominal pain; Noted hepatic steatosis. - EGD and Flex Sigmoidoscopy obtained 06/26/2025 demonstrating oral thrush, gastritis, non-bleedinggastric ulcer, and duodenitis. Pathology demonstrating scattered apoptosis in colonic mucosa, indeterminate for GVHD. - CT abd/pelvis angiogram enterography obtained 06/30/2025 negative for large or small bowel inflammation of imaging abnormality, no marked splenomegaly. - Amylase and lipase noted to be WNL GGT is 41, slightly over limits (to 36). - Surveillance blood cultures pending. - Initial lactate resulted mildly elevated at 2.3 mmol/L, improved to 1.2 mmol/L after 1 liter 0.9%NS bolus. - Urinalysis and urine culture mostly normal with a glucose of 300 and ketone of 5. Urine culture pending at this time. 07/03 CRP<3, Proteinase 3 Ab <0.2, Myeloperoxidae <0.2 - Porphyria, C3, C4, C1 esterase, ANCA pending TREATMENT - Initiated Budesonide 05/20/2025; increased to 6 mg daily 06/24/2025; discontinued 06/22/[address] Rousseau. - S/p Prednisone burst from 05/28 to 06/20/2025 with no significant improvement in her symptoms. - Continue Pantoprazole 40 mg PO BID. - 07/04/25 Continue Dilaudid PO PRN. 07/04 dose 4 mg q 3 hrs, will decrease frequency to q 4 hrs as she is drowsy and constipated today. Will continue on Buprenorphine patch - Prednisone burst re-initiated 07/02/2025 with Prednisone 40 mg PO daily; Anticipate tapering by 5-10 mg every week if symptoms resolve/improve. - Given one-time dose of IV Morphine upon admission, appreciated Palliative Medicine recs for additional pain management. - Script for [employer] sent for prior authorization on 07/02/2025; Awaiting approval. CONSULTS - Planned for outpatient [facility] consult on 08/11/2025; Inpatient consultation requested, appreciate formal recs. - Palliative Medicine consulted, appreciate formal recs. # Nausea/Vomiting # Diarrhea - GI Pathogen Panel pending but patient has been unable to produce a BM. - Oral or IV Compazine available PRN. - Will hold on giving IV Kytril given constipation, see Palliative care note initiated on 07/03/2025. - Added Olanzapine 5 mg HS and 2.5 mg QID prn. # Stool [place] on CT - Will start titration of medications to help with bowel movements. - Start by holding Zofran and Kytril. - Per GI and Palliative care, started MiraLAX daily and Senna 2 tabs BID, may increase as needed. - May also consider adding Linzess per GI (72 mcg-290 mcg). - 07/04 Dulcolax two doses in addition to MiraLAX and Senokot . # Oral Thrush - Noted per EGD from 06/26/2025 as noted above. - Initiated Clotrimazole troches on 06/26/2025, transitioned to oral Nystatin per patient preference on 06/27/2025 (EOT: 07/03/2025). # Esophageal/Chest pain - resolved - Pain is sharp 5-7 x day, intermittent and resolves on its own. - Cardiac work up at the local facility was negative - Etiology unclear possibly related to steroids (onset after starting Prednisone) and exacerbated by EGD. - 06/07/[address] was negative for PE. She continued with chest pressure/pain. - 06/25 Echocardiogram to [...] cell transplant (HCC) on 12/10/24, currently day 206 # Immunodeficiency (HCC) secondary immunosuppressive medication - Sort chimerism from 02/03/2025 showed 40% donor DNA in the CD3 fraction and 100% donor DNA in the CD33 fraction. - Bone marrow biopsy done on 02/18/25, MRD negative, Non sorted chimerism 100 % donor ( 3 loci) and BCR/ABL1 p210 mRNA negative. - Day +100 Peripheral sort chimerism 03/10/2025 CD3 fraction contains 60% donor DNA and CD33 fraction 100% contains 100% donor DNA. - Continue to check RT PCR BCR-ABL on peripheral blood every 6 weeks, most recently undetected on 06/23/25. - Peripheral sort chimerism on 04/29: CD33 100% donor DNA and 0% recipient DNA. - Last BM Bx from 02/18/25 was normal, no BCR-ABL1 detected. - BM biopsy June 15, 2025- MRD negative. - Bone marrow biopsy 06/15/2025 MRD negative, - 06/23/2025 BCR-ABL P 2 10 negative, sort chimerism CD3 90% donor DNA, CD33 100% donor DNA. 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 - Tacrolimus discontinued 04/17/2025. - EGD and Flex Sigmoidoscopy obtained 06/26/2025 demonstrating oral thrush, gastritis, non-bleedinggastric ulcer, and duodenitis. Pathology demonstrating scattered apoptosis in colonic mucosa, indeterminate for GVHD. - Initiated Prednisone burst 40 mg PO daily as of 07/02/[address] Rousseau; Anticipate tapering every 5 to 10 mg every week if symptoms resolve/improve. ACUTE GVHD (CIBMTR CRITERIA) Current Severity 07/02/25 Skin Stage Stage 0 (No GVHD rash) Liver Stage Stage 0 (Normal bilirubin) Gut Stage Stage 0 (Diarrhea <500 mL/day) nausea Overall Grade Grade 0 (No acute GVHD) Change from previous evaluation: improved Maximum overall grade (and date): Late aGVHD: Other comments: Diagnostic tests: S/p EGD and Flex Sig 06/26/2025 with scattered apoptosis noted to colonic mucosa,indeterminate for GVHD. Treatment : Prednisone 40 mg PO daily initiated 07/02/2025 Response to tt : # Antimicrobial Prophylaxis - Continues on Acyclovir, Penicillin VK, Bactrim, and Posaconazole. - It should be noted she received two doses of Shingrix already. # Insomnia - Continues on Melatonin 5 mg qHS. - Ativan on hold with buprenorphine patch on 05/28/2025. - Olanzapine should help with this as well. # Peripheral neuropathy - Continues on buprenorphine patch 5 mcg and hydromorphone PRN. - Patient is tapering gabapentin, currently takes BID ( not sure of the dose). Consider restarting this per GI. - Previous discussion that hydromorphone should not be used for chronic pain. Hydromorphone was refilled for short tem pain relief per palliative. Goal to wean off hydromorphone with starting buprenorphine patch. - 07/04 Dilaudid 4 mg q 3 hrs will decrease to 4 mg q 4 hrs with plan for further taper as tolerated # Vitamin D Deficiency - Continues on Vitamin D supplement 2000 units daily. # Generalized Anxiety Disorder # Major Depressive Disorder, recurrent episode, mild - Saw Transplant Psychiatry on 01/19/25. - Continues on Abilify 10 mg PO daily and duloxetine 120 mg daily. - Hold CBD oral oil during transplant. - 07/04 Will discuss tomorrow on rounds restarting CBD oil - S/p Psychiatry consult 06/25/2025 without evidence of somatization process. Trial Atarax PRN for anxiety. 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 Has only peripheral vision in right eye. Wears glasses. - Followed by [facility] in [place], [place]. - Patient will notify team if any vision changes. # Blood Products # TACO - Requires infusion of platelets at a slower rate. # CMV- last checked 06/03/2025 # EBV - last checked March 2025 # Disposition Pt will remain inpatient till clinically improved Activity: PAMP Level 4 (walks frequently) VTE Prophylaxis: Enoxaparin 40 mg subcutaneous once daily Blood Transfusions: Patient signed [id number] on 11/03/2024. Surrogate Decision Maker: Significant Other, Charles Minor Code Status: FULL CODE Jessica Avila APRN, C.N.P., M.S.N. * Kyle Cole Pharm.D., R.Ph. 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 She is admitted for abdominal pain. OBJECTIVE Home medications: Held: resumed appropriately Patient own medications: none Antimicrobial prophylaxis: acyclovir, posaconazole, penicillin, Bactrim VTE-P: enoxaparin ASSESSMENT / PLAN # Abdominal pain -Evaluation ongoing. Symptomatic management. 07/02 empiric prednisone until diagnostics complete. * Vikki Dunlap R.N. - 07/03/2025 2:02 PM CDT PALLIATIVE CARE INPATIENT NURSING VISIT Patient Name: Radha Martinez Age: 35 y.o. Reason for Palliative Medicine consult: coping and psychosocial support in the setting of complex medical illness. I reintroduced the patient to role of palliative care in the care of patients with serious illness,namely expertise in pain and non-pain symptom management, psychosocial, and spiritual support for patients and families as well as assistance in broader medical decision making. A conversation about what things have been helpful for Radha in the past was facilitated during myvisit. She shared that she has found benefit from auricular acupressure for anxiety. She is also interested in Reiki therapy. At home she has guided meditation videos she utilizes as well as her mother does guided meditation with her routinely. She also shares that finds things such as warm shower,cold water splash to her face effective to help her relax when feeling anxious. RECOMMENDATION/PLAN Discussed with Radha that we would be able to provide auricular acupressure to her today. One of my colleagues will see her this afternoon to place beads. Will pass along to our team for next week that she is interested in Reiki therapy. She has Reiki therapy visit scheduled for our outpatient clinic next month as well. Visit and plan was discussed with Uma Estes CNP Thank you for having the Palliative Medicine team M ([phone]) participate in the care of this patient. Please do not hesitate to contact our team at any time with any questions or concerns. Vikki Dunlap R.N. Palliative Care Nurse [facility] * Geo Mcdowell M.D., Ph.D. - 07/03/2025 9:52 AM CDT I visited and evaluated the patient and agree with the history, physical exam, assessment and plan as documented by Katalina Pawel in her admit note of July 02, 2025. Ms. Martinez he is a 35-year-old lady with a history of CML who underwent an allogeneic transplant in November. She has had repeated admissions because of abdominal pain that required narcotics. We have some evidence of potential GVHD based on endoscopy and biopsies with apoptotic bodies present on colonic biopsies. The pain is periumbilical and to the left of the umbilicus. It has a superficial and deep componentbut it is not a cramp. It does not radiate to any other site. Eating, drinking, bowel movements urination or change in position does not alter the discomfort. She never had any zoster in the distribution of the pain. Prior to her transplant she did not have this type of pain and it is different from menstrual pain. No history of photosensitivity or lip swelling. No abdominal surgery. No bloating. On examination she appears in no distress without a tachycardia. The abdomen moves with respiration. No hernia. The abdomen is soft with some tenderness to the left of the umbilicus. No rebound or guarding. Bowel sounds are decreased. No mass. Straight leg raising does not cause any discomfort but movement of the left hip with rotation can increase the pain. No scarring in her skin. We will proceed with additional laboratory studies including screening her for porphyria, C1 esterase inhibitor deficiency, ANCA, and CRP. * Natalya Carlos P.A.-C. - 07/03/2025 7:12 AM CDT SUBJECTIVE TRANSPLANT PHYSICIAN Dr. Jessica Rousseau, pager [phone]. 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 She presents for admission to inpatient BMT service for further management of persistent abdominal pain, nausea and vomiting, and chills. Currently 12/10/2024 (205 days). Ms. Martinez is a 35 y.o. 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 At the time of diagnosis, there was grade 3 reticulin fibrosis noted. The cytogenetics identified a [place] chromosome in 20 metaphases. The BCR-ABL1 P [...] t(9;22) metaphases. 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 06/17/2024: feeling quite symptomatic since the [...] Access [place] CVC placed on 12/03/24 by [facility]. Social Work Seen and cleared on 10/29/24 [...] recovery. Enterobacter cloacae UTI, treated with Ciprofloxacin Admitted 05/28/2025 to 05/29/2025 for nausea and abdominal pain. She was initiated on Prednisone 60mg PO daily with noted improvement in nausea. EGD obtained 06/01/2025 with pathology negative for GVHD. Admitted 06/12/2025 to 06/13/2025 for abdominal pain, abdominal CT was obtained and noted to be without acute findings. She was discharged on Docusate BID and Senna PRN. Admitted 06/24/2025 to 06/27/2025 for persistent abdominal pain. CT Abd/Pelvic was obtained withoutacute findings; ultrasound of the gallbladder demonstrated diffuse hepatic steatosis with geographic fatty bearing in the gallbladder fossa; Transvaginal US Pelvis was without sonographic correlationfor patient's pain. EGD/Flex was obtained 06/26/2025 with noted oral thrush, gastritis, non-bleeding gastric ulcer, and duodenitis. Pathology demonstrated scattered apoptosis in the colonic mucosa, indeterminate for GVHD in the colon. EVENTS OVER THE LAST 24 HOURS Patient admitted overnight. She has previously been admitted and had several ED visits for this issue. She is feeling constipated although one of her complaints previously was diarrhea, as they ordered a GI pathogen panel. She does not take medications regularly, Palliative care would like to shootfor her to have a BM daily. Continue daily Prednisone. We discussed her abdominal pain and this is m ostly in the LLQ and it does not radiate. We discussed the pain and tests ordered per Dr. Mcdowell. EVENTS PRIOR TO ADMISSION Ms Radha Martinez presents for admission for further management of persistent abdominal pain. She was recently admitted from 06/24 through 06/27/2025 for management of similar symptoms. She underwent EGD/Flex sig on 06/26/2025 with pathology demonstrating scattered apoptosis in the colonic mucosa, indeterminate for GVHD. Per Dr Rousseau, Ms Martinez was initiated on Prednisone 40 mg PO daily earlier this morning. Upon exam this evening, Ms Martinez endorses ongoing abdominal pain, primarily left lower quadrant,which she reports as a 6 out of 10 in severity upon presentation. She notes she has been utilizing oral Dilaudid as needed, which she reports is helpful for approximately 45 minutes before pain returns to a 6 to 7 out of 10 in severity. She received IV Morphine in both the ED and on Station 9-4, and she notes this was more helpful. She continues on Butrans patch her Palliative Medicine. She endorses feeling intermittently nauseated since recent hospitalization for which she has been utilizing oral Compazine and oral Zofran as needed. She notes severity of nausea seems to be up and down, and she shares that she vomited twice today. She reports intermittent diarrhea, noting that stools alternate in consistency between formed and loose, and she does not feel that episodes of diarrhea correlate with timing of nausea. She notes new onset urinary urgency as of this morning without associated urinary frequency, hematuria, dysuria, or flank pain. She denies recents fevers, though endorses an episode of shaking chillsthis afternoon that lasted for approximately two hours before abating. Ms Martinez denies new onset skin rash or lesions, xerophthalmia or xerostomia, skin tightening or thickening, or new onset joint pain/limited ROM. REVIEW OF SYSTEMS Constitutional: - Negative for fatigue, fever and loss of appetite. Skin: - Negative for skin rash. Eyes: - Negative for visual problems. ENT: - Negative for sinus congestion. Respiratory: - Negative for coughing up blood, coughing up mucus (phlegm), dry cough and shortness of breath. Cardiovascular: - Negative for chest pain, pressure or tightness and swelling in the legs or feet. Gastrointestinal: Positive for abdominal (belly) pain or cramping and constipation. - Negative for blood in stool, diarrhea, heartburn, nausea, vomiting and difficulty swallowing. Genitourinary: - Negative for difficulty urinating, pain with urination, blood in urine and frequent urination. Hematologic: - Negative for bruises or bleeds easily. Musculoskeletal: - Negative for back pain. Neurological: - Negative for light-headedness and headaches. OBJECTIVE I/O Intake/Output Summary (Last 24 hours) at 07/03/2025 0712 Last data filed at 07/03/2025 0231 Gross per 24 hour Intake 400 ml Output 675 ml Net -275 ml VITAL SIGNS Temperature: [36.5 ??C-36.7 ??C] 36.5 ??C Resp Rate: [16-18] 18 Blood Pressure: (108-151)/(70-97) 116/70 SpO2: [97 %-99 %] 99 % Pulse Rate: [75-97] 75 PHYSICAL EXAMINATION Constitutional Appearance: She is well-developed. HENT Head: Normocephalic and atraumatic. Mouth/Throat: Mouth: Mucous membranes are moist. Pharynx: Oropharynx is clear. Eyes Conjunctiva/sclera: Conjunctivae normal. Pupils: Pupils are equal, round, and reactive to light. Cardiovascular Rate and Rhythm: Normal rate and regular rhythm. Heart sounds: Normal heart sounds. No murmur heard. No friction rub. No gallop. Pulmonary Effort: Pulmonary effort is normal. No respiratory distress. Breath sounds: Normal breath sounds. No wheezing or rales. Abdominal General: Bowel sounds are normal. Palpations: Abdomen is soft. Tenderness: There is no abdominal tenderness. There is no guarding or rebound. Skin General: Skin is warm and dry. Neurological General: No focal deficit present. Mental Status: She is alert and oriented to person, place, and time. Psychiatric Mood and Affect: Mood normal. Behavior: Behavior normal. KPS: 80% DIAGNOSTICS I have reviewed the recent relevant Diagnostics Results from last 7 days Lab Units 07/02/25213906/30/25 1041 06/27/25 0350 HEMOGLOBIN g/dL 11.8 12.1 10.4* HEMATOCRIT % 36.3 37.1 32.9* RBC AUTO x10(12)/L 4.34 4.46 3.92 MCV fL 83.6 83.2 83.9 RBC DISTRIBUTION WIDTH AUTO % 14.5 14.4 14.4 WBC x10(9)/L 6.9 3.7 5.2 NEUTROPHILS AUTO x10(9)/L 5.49 2.66 3.80 PLATELETS AUTO x10(9)/L 225 194 159 Results from last 7 days Lab Units 07/02/25213806/30/25 1041 06/30/25 1040 06/27/25 0350 SODIUM mmol/L 137 141 -- 139 CHLORIDE mmol/L 103 -- -- 105 BUN mg/dL 14 12 -- 13 CREATININE mg/dL 0.75 0.84 -- 0.73 CALCIUM mg/dL 9.5 9.3 -- 9.0 ALBUMIN g/dL 4.3 4.3 -- 3.9 BILIRUBIN TOTAL P mg/dL -- -- 0.2 -- BILIRUBIN TOTAL mg/dL <0.2 -- -- <0.2 ALK PHOS U/L 98 97 -- 88 ALT U/L 40 32 -- 40 AST P U/L -- -- 21 -- AST U/L 25 -- -- 18 GLUCOSE mg/dL -- 164* -- -- GLUCOSE S mg/dL 169* -- -- 121 ASSESSMENT / PLAN # Diffuse Abdominal Pain, worse to LLQ # Persistent Nausea and Vomiting since early 05/2025; Query GI GVHD, R/O other etiologies IMAGING/LABS - C-diff negative from 05/17. PRN Imodium as needed. - Infectious work-up with peripheral blood cultures from 05/17 NGTD. Lactate 1.6, nonelevated. - 05/28/25 CT abdomin/pelvis: no abnormal findings. - 06/01/25 EGD with biopsy negative for GVHD. - Repeat 06/12/25 CT revealed no acute abnormalities, moderate stool burden. - 06/24/2025 CT Abd/pelvis/chest, normal with previous resolution of the ground- glass opacities from 06/05/2025. - HCG negative 06/25/25. - 06/25 right upper quadrant ultrasound and transvaginal pelvic ultrasound unrevealing for etiology of abdominal pain; Noted hepatic steatosis. - EGD and Flex Sigmoidoscopy obtained 06/26/2025 demonstrating oral thrush, gastritis, non-bleedinggastric ulcer, and duodenitis. Pathology demonstrating scattered apoptosis in colonic mucosa, indeterminate for GVHD. - CT abd/pelvis angiogram enterography obtained 06/30/2025 negative for large or small bowel inflammation of imaging abnormality, no marked splenomegaly. - Amylase and lipase noted to be within defined limits as of 06/30/2025; repeat upon admission alsowithin defined limits. GGT is 41, slightly over limits (to 36). - Surveillance blood cultures pending. - Initial lactate resulted mildly elevated at 2.3 mmol/L, improved to 1.2 mmol/L after 1 liter 0.9%NS bolus. - Urinalysis and urine culture mostly normal with a glucose of 300 and ketone of 5. Urine culture pending at this time. - Test ordered today per Dr. Mcdowell: Porphyria, C3, C4, C1 esterase, ANCA, CRP. TREATMENT - Initiated Budesonide 05/20/2025; increased to 6 mg daily 06/24/2025; discontinued 06/22/[address] Rousseau. - S/p Prednisone burst from 05/28 to 06/20/2025 with no significant improvement in her symptoms. - Continue Pantoprazole 40 mg PO BID. - Continue Dilaudid PO PRN. - Prednisone burst re-initiated 07/02/2025 with Prednisone 40 mg PO daily; Anticipate tapering by 5-10 mg every week if symptoms resolve/improve. - Given one-time dose of IV Morphine upon admission, appreciated Palliative Medicine recs for additional pain management. - Script for Moiz sent for prior authorization on 07/02/2025; Awaiting approval. CONSULTS - Planned for outpatient GIH consult on 08/11/2025; Inpatient consultation requested, appreciate formal recs. - Palliative Medicine consulted, appreciate formal recs. # Nausea/Vomiting # Diarrhea - GI Pathogen Panel pending but patient has been unable to produce a BM. - Oral or IV Compazine available PRN. - Will hold on giving IV Kytril given constipation, see Palliative care note initiated on 07/03/2025. - Added Olanzapine 5 mg HS and 2.5 mg QID prn. # Stool [place] on CT - Will start titration of medications to help with bowel movements. - Start by holding Zofran and Kytril. - Per GI and Palliative care, started MiraLAX daily and Senna 2 tabs BID, may increase as needed. - May also consider adding Linzess per GI (72 mcg-290 mcg). # Oral Thrush - Noted per EGD from 06/26/2025 as noted above. - Initiated Clotrimazole troches on 06/26/2025, transitioned to oral Nystatin per patient preference on 06/27/2025 (EOT: 07/03/2025). # Esophageal/Chest pain - resolved - Pain is sharp 5-7 x day, intermittent and resolves on its own. - Cardiac work up at the local facility was negative for acute process. - Etiology unclear possibly related to steroids (onset after starting Prednisone) and exacerbated by EGD. - 06/07/[address] was negative for PE. She [...] and 100% donor DNA in the CD33 fraction. - Bone marrow biopsy done on 02/18/25, MRD negative, Non sorted chimerism 100 % donor ( 3 loci) and BCR/ABL1 p210 mRNA negative. - Day +100 Peripheral sort chimerism 03/10/2025 CD3 fraction contains 60% donor DNA and CD33 fraction 100% contains 100% donor DNA. - Continue to check RT PCR BCR-ABL on peripheral blood every 6 weeks, most recently undetected on 06/23/25. - Peripheral sort chimerism on 04/29: CD33 100% donor DNA and 0% recipient DNA. - Last BM Bx from 02/18/25 was normal, no BCR-ABL1 detected. - BM biopsy June 15, 2025- MRD negative. - Bone marrow biopsy 06/15/2025 MRD negative, - 06/23/2025 BCR-ABL P 2 10 negative, sort chimerism CD3 90% donor DNA, CD33 100% donor DNA. 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 - Tacrolimus discontinued 04/17/2025. - EGD and Flex Sigmoidoscopy obtained 06/26/2025 demonstrating oral thrush, gastritis, non-bleedinggastric ulcer, and duodenitis. Pathology demonstrating scattered apoptosis in colonic mucosa, indeterminate for GVHD. - Initiated Prednisone burst 40 mg PO daily as of 07/02/[address] Rousseau; Anticipate tapering every 5 to 10 mg every week if symptoms resolve/improve. ACUTE GVHD (CIBMTR CRITERIA) Current Severity 07/02/25 Skin Stage Stage 0 (No GVHD rash) Liver Stage Stage 0 (Normal bilirubin) Gut Stage Stage 0 (Diarrhea <500 mL/day) nausea Overall Grade Grade 0 (No acute GVHD) Change from previous evaluation: improved Maximum overall grade (and date): Late aGVHD: Other comments: Diagnostic tests: S/p EGD and Flex Sig 06/26/2025 with scattered apoptosis noted to colonic mucosa,indeterminate for GVHD. Treatment : Prednisone 40 mg PO daily initiated 07/02/2025 Response to tt : # Antimicrobial Prophylaxis - Continues on Acyclovir, Penicillin VK, Bactrim, and Posaconazole. - It should be noted she received two doses of Shingrix already. # Insomnia - Continues on Melatonin 5 mg qHS. - Ativan on hold with buprenorphine patch on 05/28/2025. - Olanzapine should help with this as well. # Peripheral neuropathy - Continues on buprenorphine patch 5 mcg (this was removed when admitted per patient and not restarted--written to restart today) and qHS hydromorphone PRN. - Patient is tapering gabapentin, currently takes BID ( not sure of the dose). Consider restarting this per GI. - Previous discussion that hydromorphone should not be used for chronic pain. Hydromorphone was refilled for short tem pain relief per palliative. Goal to wean off hydromorphone with starting buprenorphine patch. # Vitamin D Deficiency - Continues on Vitamin D supplement 2000 units daily. # Generalized Anxiety Disorder # Major Depressive [...] [facility] in [place], [place]. - Patient will notify team if any vision changes. # Blood Products # TACO - Requires infusion of platelets at a slower rate. # CMV- last checked 06/03/2025 # EBV - last checked March 2025 Activity: PAMP Level 4 (walks frequently) VTE Prophylaxis: Enoxaparin 40 mg subcutaneous once daily Blood Transfusions: Patient signed [id number] on 11/03/2024. Surrogate Decision Maker: Significant Other, Charles Iván Code Status: FULL CODE documented in this encounter H&P Notes * Scherbring, Carlee E, RUBBER PRESS OPERATOR, C.N.P., D.N.P., M.S.N. - 07/02/2025 6:35 PM CDT SUBJECTIVE TRANSPLANT PHYSICIAN Dr. Jessica Rousseau, pager [phone]. 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 She presents for admission to inpatient BMT service for further management of persistent abdominal pain, nausea and vomiting, and chills. HISTORY OF PRESENT ILLNESS Please refer to multiple prior notes in EMR for complete hematologic history: Ms. Martinez is a 35 y.o. 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 At the time of diagnosis, there was grade 3 reticulin fibrosis noted. The cytogenetics identified a [place] chromosome in 20 metaphases. The BCR-ABL1 P [...] t(9;22) metaphases. 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 06/17/2024: feeling quite symptomatic since the [...] Access [facility] CVC placed on 12/03/24 by [facility]. Social Work Seen and cleared on 10/29/24 [...] recovery. Enterobacter cloacae UTI, treated with Ciprofloxacin Admitted 05/28/2025 to 05/29/2025 for nausea and abdominal pain. She was initiated on Prednisone 60mg PO daily with noted improvement in nausea. EGD obtained 06/01/2025 with pathology negative for GVHD. Admitted 06/12/2025 to 06/13/2025 for abdominal pain, abdominal CT was obtained and noted to be without acute findings. She was discharged on Docusate BID and Senna PRN. Admitted 06/24/2025 to 06/27/2025 for persistent abdominal pain. CT Abd/Pelvid was obtained withoutacute findings; ultrasound of the gallbladder demonstrated diffuse hepatic steatosis with geographic fatty bearing in the gallbladder fossa; Transvaginal US Pelvis was without sonographic correlationfor patient's pain. EGD/Flex was obtained 06/26/2025 with noted oral thrush, gastritis, non-bleeding gastric ulcer, and duodenitis. Pathology demonstrated scattered apoptosis in the colonic mucosa, indeterminate for GVHD in the colon. EVENTS PRIOR TO ADMISSION Ms Radha Martinez presents for admission for further management of persistent abdominal pain. She was recently admitted from 06/24 through 06/27/2025 for management of similar symptoms. She underwent EGD/Flex sig on 06/26/2025 with pathology demonstrating scattered apoptosis in the colonic mucosa, indeterminate for GVHD. Per Dr Rousseau, Ms Martinez was initiated on Prednisone 40 mg PO daily earlier this morning. Upon exam this evening, Ms Martinez endorses ongoing abdominal pain, primarily left lower quadrant,which she reports as a 6 out of 10 in severity upon presentation. She notes she has been utilizing oral Dilaudid as needed, which she reports is helpful for approximately 45 minutes before pain returns to a 6 to 7 out of 10 in severity. She received IV Morphine in both the ED and on [facility], and she notes this was more helpful. She continues on Butrans patch her Palliative Medicine. She endorses feeling intermittently nauseated since recent hospitalization for which she has been utilizing oral Compazine and oral Zofran as needed. She notes severity of nausea seems to be up and down, and she shares that she vomited twice today. She reports intermittent diarrhea, noting that stools alternate in consistency between formed and loose, and she does not feel that episodes of diarrhea correlate with timing of nausea. She notes new onset urinary urgency as of this morning without associated urinary frequency, hematuria, dysuria, or flank pain. She denies recents fevers, though endorses an episode of shaking chillsthis afternoon that lasted for approximately two hours before abating. Ms Martinez denies new onset skin rash or lesions, xerophthalmia or xerostomia, skin tightening or thickening, or new onset joint pain/limited ROM. REVIEW OF SYSTEMS A 10-point review of systems is negative, except as noted above. Current Medications[1] Current Outpatient Medications on File Prior to Encounter Medication Sig Last Dose/Taking acyclovir (Zovirax) 400 mg tablet Take 1 tablet (400 mg total) by mouth 2 (two) times a day. ARIPiprazole (Abilify) 10 mg tablet Take 1 tablet (10 mg total) by mouth daily. Dose change 12/02/2024 budesonide (Entocort EC) [address] capsule Take 2 capsules (6 mg total) by mouth daily. buprenorphine (Butrans) 5 mcg/hour Place 1 patch on the skin once a week Indication: Chronic Pain/Nonacute Pain. cholecalciferol (Vitamin D3) 50 mcg (2,000 Unit) tablet Take 50 mcg by mouth daily. cyclobenzaprine (FlexeriL) 5 mg tablet Take 1 tablet (5 mg total) by mouth 2 (two) times a day as needed for muscle spasms. diphenhydrAMINE (BenadryL) 25 mg capsule Take 1 capsule (25 mg total) by mouth every 6 (six) hours as needed for itching. (Patient not taking: Reported on 06/30/2025) DULoxetine (Cymbalta) [address] capsule Take 2 capsules (120 mg total) by mouth daily. HYDROmorphone (Dilaudid) 1 mg/mL liquid Take 2 mL (2 mg total) by mouth every 6 (six) hours as needed for pain Indication: Chronic Pain/Nonacute Pain. hydrOXYzine (Atarax) 25 mg tablet Take 1 tablet (25 mg total) by mouth every 6 (six) hours as needed for anxiety. ibuprofen 400 mg tablet Take 1 tablet (400 mg total) by mouth every 6 (six) hours as needed for moderate pain or score 4-6 of 10. lidocaine (Lidoderm) 5 % adhesive patch,medicated Place 1 patch on the skin daily. Apply to affected area . (Patient not taking: Reported on 06/30/2025) loperamide (Imodium A-D) 2 mg capsule Take [...] after 2-3 minutes ifno or minimal response. (Patient not taking: Reported on 06/30/2025) nystatin (Mycostatin) 100,000 unit/mL suspension Swish and swallow 5 mL (500,000 Units total) 4 (four) times a day for 7 days. ondansetron ODT (Zofran-ODT) 4 mg disintegrating tablet Dissolve 1-2 tablets (4- 8 mg total) in the mouth every 8 (eight) hours as needed for nausea or vomiting. pantoprazole (Protonix) 40 mg EC tablet Take 1 tablet (40 mg total) by mouth 2 (two) times a day before morning and evening meals. penicillin V potassium (Veetids) 500 mg tablet Take 1 tablet (500 mg total) by mouth 2 (two) times a day. posaconazole (NoxafiL) [address] tablet Take 3 tablets (300 mg total) by mouth daily. prochlorperazine (Compazine) 10 mg tablet Take 1 tablet (10 mg total) by mouth every 6 (six) hours as needed for nausea. ruxolitinib (Jakafi) 5 mg tablet Take 1 tablet (5 mg total) by mouth 2 (two) times a day. Take at about the same time each day. Take with or without food. sennosides-docusate sodium (Senokot-S) 8.6-50 mg per tablet Take 1 tablet by mouth 2 (two) times a day. (Patient not taking: Reported on 06/30/2025) sulfamethoxazole-trimethoprim (Bactrim) 400-80 mg per tablet Take 1 tablet by mouth daily. [DISCONTINUED] HYDROmorphone (Dilaudid) 1 mg/mL liquid Take 2 mL (2 mg total) by mouth every 6 (six) hours as needed for pain Indication: Chronic Pain/Nonacute Pain. OBJECTIVE VITAL SIGNS Weight: 101 kg, Blood Pressure: (!) 151/97, Pulse Rate: 97, Resp Rate: 18, Temperature: 36.7 ??C, SpO2: 97 % Admission Weight: 101 kg PHYSICAL EXAM General: Nontoxic female in no acute distress. Seated comfortably in hospital bed during time of physical exam. Eyes: Anicteric sclera, EOMI, PERRLA. Right eye esotropia. Mouth: Oral mucosa moist, without noted ulceration or lesions. Tongue coated. Heart: Regular rate and rhythm. S1, S2. No murmur, gallops, or rubs. Lungs: Clear to auscultation bilaterally with non labored breathing pattern. No rales, wheezing, orrhonchi. Abdomen: Soft, no distention. Bowel sounds present and active in all quadrants. Tenderness elicitedwith palpation of left lower quadrant, no rebound tenderness or guarding. No suprapubic or flank pain appreciated. Skin: Warm, dry, and intact. No acute rashes or lesions. No scleroderma or hidebound skin. Extremities: Atraumatic, no deformity. No bilateral lower extremity edema or bilateral calf tenderness. Neuro: CN 2 through 12 grossly intact with appropriate speech and affect Mental: Alert and oriented to person, place, time, and situation KPS 80% DIAGNOSTIC FINDINGS I have reviewed imaging, and other diagnostic studies. Recent Results (from the past 24 hours) pH, Random, Urine Collection Time: 07/02/25 9:29 PM Result Value pH, Random, U 5.9 Osmolality, Urine Collection Time: 07/02/25 9:29 PM Result Value Osmolality, U 912 Dipstick, Urine Collection Time: 07/02/25 9:29 PM Result Value Hemoglobin, QL, U Negative Leukocyte Esterase, U Negative Nitrite, U Negative Ketone, U 5 (A) Glucose, U 300 (A) ASSESSMENT / PLAN # Diffuse Abdominal Pain, worse to LLQ # Persistent Nausea and Vomiting since early 05/2025; Query GI GVHD IMAGING/LABS - C-diff negative from 05/17. PRN Imodium as needed. - Infectious work-up with peripheral blood cultures from 05/17 NGTD. Lactate 1.6, nonelevated. - 05/28/25 CT abdomin/pelvis: no abnormal findings. - 06/01/25 EGD with biopsy negative for GVHD - Repeat 06/12/25 CT revealed no acute abnormalities, moderate stool burden. - 06/24/2025 CT Abd/pelvis/chest, normal with previous resolution of the ground- glass opacities from 06/05/2025. - HCG negative 06/25/25. - 06/25 right upper quadrant ultrasound and transvaginal pelvic ultrasound unrevealing for etiology of abdominal pain; Noted hepatic steatosis. - EGD and Flex Sigmoidoscopy obtained 06/26/2025 demonstrating oral thrush, gastritis, non-bleedinggastric ulcer, and duodenitis. Pathology demonstrating scattered apoptosis in colonic mucosa, indeterminate for GVHD. - CT abd/pelvis angiogram enterography obtained 06/30/2025 negative for large or small bowel inflammation of imaging abnormality, no marked splenomegaly. - Amylase and lipase noted to be within defined limits as of 06/30/2025; repeat pending upon admission - Surveillance blood cultures and lactate pending ADDENDUM: Initial lactate resulted mildly elevated at 2.3 mmol/L, improved to 1.2 mmol/L after 1 liter 0.9% NS bolus. - Urinalysis and urine culture pending TREATMENT - Initiated Budesonide 05/20/2025; increased to 6 mg daily 06/24/2025; discontinued 06/22/[address] Rousseau - S/p Prednisone burst from 05/28 to 06/20/2025 with no significant improvement in her symptoms. - Continue Pantoprazole 40 mg PO BID. - Continue Dilaudid PO PRN - Prednisone burst re-initiated 07/02/2025 with Prednisone 40 mg PO daily; Anticipate tapering by 5-10 mg every week if symptoms resolve/improve. - Will give one-time dose of IV Morphine upon admission, appreciated Palliative Medicine recs for additional pain management - Script for Moiz sent for prior authorization on 07/02/2025; Awaiting approval. CONSULTS - Planned for outpatient GIH consult on 08/11/2025; Inpatient consultation requested, appreciate formal recs - Palliative Medicine consulted, appreciate formal recs # Nausea/Vomiting # Diarrhea - GI Pathogen Panel pending - Oral or IV Compazine available PRN - Will plan for IV Kytril daily, to be initiated on 07/03/2025 # Oral Thrush - Noted per EGD from 06/26/2025 as noted above - Initiated Clotrimazole troches on 06/26/2025, transitioned to oral Nystatin per patient preference on 06/27/2025 (EOT: 07/03/2025) # Esophageal/Chest pain - [...] CD33 100% donor DNA # GVHD Prophylaxis # Query Lower GI GVHD, 06/26/2025 - Received PTCy; MMF was stopped per protocol. - Tacrolimus discontinued 04/17/2025 - EGD and Flex Sigmoidoscopy obtained 06/26/2025 demonstrating oral thrush, gastritis, non-bleedinggastric ulcer, and duodenitis. Pathology demonstrating scattered apoptosis in colonic mucosa, indeterminate for GVHD. - Initiated Prednisone burst 40 mg PO daily as of 07/02/[address] Rousseau; Anticipate tapering every 5 to 10 mg every week if symptoms resolve/improve. ACUTE GVHD (CIBMTR CRITERIA) Current Severity 07/02/25 Skin Stage Stage 0 (No GVHD rash) Liver Stage Stage 0 (Normal bilirubin) Gut Stage Stage 0 (Diarrhea <500 mL/day) nausea Overall Grade Grade 0 (No acute GVHD) Change from previous evaluation: improved Maximum overall grade (and date): Late aGVHD: Other comments: Diagnostic tests: S/p EGD and Flex Sig 06/26/2025 with scattered apoptosis noted to colonic mucosa,indeterminate for GVHD. Treatment : Prednisone 40 mg PO daily initiated 07/02/2025 Response to tt : # Antimicrobial Prophylaxis - Continues on Acyclovir, Penicillin VK, Bactrim, and Posaconazole. - It should be noted she received two doses of Shingrix already. # Insomnia - Continues on Melatonin 5 mg qHS. - Ativan on hold with buprenorphine patch on 05/28/2025 # Peripheral neuropathy - Continues on buprenorphine patch 5 mg and qHS hydromorphone PRN. - Patient is tapering gabapentin, currently takes BID ( not sure of the dose) - Previous discussion that hydromorphone should not be used for chronic pain. Hydromorphone was refilled for short tem pain relief per palliative. Goal to wean off hydromorphone with starting buprenorphine patch. # Vitamin D Deficiency - Continues on [...] [facility] in [place], [place]. - Patient will notify team if any vision changes. # Blood Products # TACO - Requires infusion of platelets at a slower rate # CMV- last checked 06/03/2025 # EBV - last checked March 2025 Activity: PAMP Level 4 (walks frequently) VTE Prophylaxis: Enoxaparin 40 mg subcutaneous once daily Blood Transfusions: Patient signed [id number] on 11/03/2024. Surrogate Decision Maker: Significant Other, Charles Minor Code Status: FULL CODE [1] Current Medications Medication Dose Frequency Last Rate Last Admin acyclovir tablet 400 mg (Zovirax) 400 mg BID 400 mg at 07/02/252140 alteplase 1 mg/mL injection 2 mg (Cathflo Activase) 2 mg PRN alum-mag hydroxide-simeth 200-200-20 mg/5 mL suspension 30 mL (Maalox) 30 mL Q4H PRN [START ON 07/03/2025] ARIPiprazole tablet 10 mg (Abilify) 10 mg Q24H [START ON 07/06/2025] buprenorphine 5 mcg/hour 1 patch (Butrans) 1 patch Weekly calcium carbonate chewable tablet 200 mg of calcium (Tums) 200 mg of calcium Daily PRN cyclobenzaprine tablet 5 mg (FlexeriL) 5 mg BID PRN diphenhydrAMINE capsule 25 mg (BenadryL) 25 mg Q6H PRN diphenhydrAMINE injection 25 mg (BenadryL) 25 mg PRN [START ON 07/03/2025] DULoxetine DR capsule 120 mg (Cymbalta) 120 mg Q24H [START ON 07/03/2025] enoxaparin injection 40 mg (Lovenox) 40 mg Daily [START ON 07/03/2025] granisetron (PF) injection 1 mg (KytriL) 1 mg Daily HYDROmorphone liquid 4 mg (Dilaudid) 4 mg Q3H PRN hydrOXYzine tablet 25 mg (Atarax) 25 mg Q6H PRN ibuprofen tablet 400 mg 400 mg Q6H PRN [START ON 07/03/2025] melatonin tablet 5 mg 5 mg Daily at bedtime [START ON 07/03/2025] nystatin suspension 500,000 Units (Mycostatin) 500,000 Units 4x Daily ondansetron (PF) injection 8 mg (Zofran) [address] tablet 40 mg (Protonix) 40 mg BID before morning and evening meals 40 mg at 07/02/252140 [START ON 07/03/2025] penicillin V potassium tablet 500 mg (Veetids) 500 mg BID [START ON 07/03/2025] posaconazole DR tablet 300 mg (NoxafiL) 300 mg Daily [START ON 07/03/2025] predniSONE tablet 40 mg (Deltasone) 40 mg Daily prochlorperazine injection 10 mg (Compazine) 10 mg Q6H PRN 10 mg at 07/02/252140 prochlorperazine tablet 10 mg (Compazine) 10 mg Q6H PRN sennosides-docusate sodium 8.6-50 mg per tablet 1 tablet (Senokot-S) 1 tablet BID PRN [START ON 07/03/2025] sulfamethoxazole-trimethoprim 400-80 mg per tablet 1 tablet (Bactrim) 1 tabletDaily CDT CDT documented in this encounter Consult Notes * Uma Estes APRN, C.N.P., M.S.N. - 07/03/2025 4:10 PM CDTAssociated Order(s): IP CONSULT TO PALLIATIVE CARE [facility] PALLIATIVE CARE NEW CONSULT NOTE PATIENT: Radha Martinez; 35 y.o.female LOCATION: LOCATION TYPE: Hospital - General Floor SUBJECTIVE CHIEF COMPLAINT/REASON FOR VISIT Symptom Management HISTORY OF PRESENT ILLNESS Radha Martinez is a 34 yo woman with chronic phase CML s/p matched, unrelated donor allogeneic stem cell transplant on 12/10/24. She was admitted 07/02/25 with abdominal pain and nausea. Radha has been hospitalized a number of times for similar symptomatology, but despite extensive workup, no clearetiology has been identified. I invite the interested reader to review notes from BMT for further details. There is inconclusive data for the possibility of GVHD. Prednisone was started yesterday to determine if it's helpful. Radha is established in the Palliative Medicine clinic and our consulting service has been involved in her care during previous hospitalizations. It is in this setting that Palliative Medicine has been consulted to assist with ongoing symptom management needs. The following portions of the patient's history were reviewed and updated as appropriate: Allergies, Current Medications, Medical History, Surgical History, Family History, and Social History I have reviewed the patient???s record in the [place] Prescription Drug Monitoring Program ([place] [employer]) with no unexpected findings. REVIEW OF SYSTEMS Constitutional: Positive for fatigue and fever. Gastrointestinal: Positive for abdominal (belly) pain or cramping, constipation, diarrhea, nausea and vomiting. ADVANCE CARE PLANNING DOCUMENTS: Documents notable for: Advance Directive Surrogate decision maker: Mother Natalya. Boyfriend Charles is named as alternate. CODE STATUS AT TIME OF INITIAL CONSULTATION: Full Code PALLIATIVE FUNCTIONAL ASSESSMENT: 70% Reduced ambulation. Unable to work/Significant evidence of disease. Full Self-Care. Normal or reduced oral intake. Full consciousness. OBJECTIVE Temperature: [36.5 ??C-37 ??C] 37 ??C Resp Rate: [16-18] 16 Blood Pressure: (108-151)/(70-97) 139/88 SpO2: [95 %-99 %] 98 % Weight: [101 kg] 101 kg Pulse Rate: [75-97] 80 PHYSICAL EXAMINATION Vitals and nursing note reviewed. Constitutional General: She is not in acute distress. HENT Mouth/Throat: Mouth: Mucous membranes are moist. Pulmonary Effort: Pulmonary effort is normal. Abdominal Palpations: Abdomen is soft. Tenderness: There is abdominal tenderness. Skin General: Skin is warm. Neurological General: No focal deficit present. Mental Status: She is alert and oriented to person, place, and time. Psychiatric Mood and Affect: Mood normal. Behavior: Behavior normal. DIAGNOSTICS Relevant medication use over the course of the last 24 hours includes: 1 mg Granisetron Q day PRN cyclobenzaprine: none yesterday; 5 mg thus far today PRN hydromorphone: none yesterday; 16 mg thus far today PRN IV morphine: 4 mg yesterday; none thus far today PRN ondansetron: none yesterday; 8 mg thus far today PRN prochlorperazine: 10 mg yesterday; none thus far today ASSESSMENT / PLAN #1 Pain Left Lower Quadrant #2 Nausea/Vomiting #3 Anxiety #4 Palliative Care Z51.5 SUMMARY: This morning, I had the pleasure of meeting Radha. She was found resting in her hospital bed, and warmly welcomed me to converse with her. At the time of my visit, she reported pain and nausea as tolerable. She had recently eaten, however, which has historically caused her abdominal pain to worsen. For management of abdominal pain, she utilizes 4 mg PO hydromorphone, which is helpful for only about 45 minutes. Prednisone was started yesterday for management of potential GVHD. Given how recently the medication was initiated, it is not yet known whether or not it's helpful. There has also beenconcern expressed that constipation could be contributing to abdominal pain. I note that Radha's bowel regimen only consists of 1 tab Senna-S BID, and she has reported fluctuating between significant constipation and diarrhea. For pain management, I recommend that Radha continue to receive the 5 mcg transdermal Butrans patch and have 4 mg PO hydromorphone available as needed. Radha reported her Butrans patch was removed when she was admitted. If this is the case, it should be replaced sooner rather than later. For management of nausea, Radha reported utilizing two doses of prochlorperazine a day with intermittent use of as needed ondansetron. With her most recent experience of nausea, the antiemetics she had available at home were not helpful. I recommend that both of these medications be discontinued and a trial of olanzapine be implemented; 5 mg QHS with the availability of 2.5 mg QID PRN. At some point, consideration may be given to scheduling a 2.5 mg dose in the morning and allowing PRN dosing TID. For management of constipation, Radha should receive a daily scheduled bowel regimen given her useof opioid. The regimen can be titrated to aim for one softly formed BM per day. For now, I recommend scheduling 2 Senna-S BID and daily MiraLAX. This regimen can be increased to 3 Senna-S BID and MiraLAX BID. It can be decreased to 1 Senna-S daily. In either case, she should receive something for bowels every day while she is utilizing opioid. On Sunday, we will also provide her with teaching in regards to prevention of opioid induced constipation and how it can help prevent fluctuations between significant constipation and diarrhea. Radha reports having benefitted from palliative medicine's nonpharmacologic interventions in the past. She is interested in receiving Reiki, massage and placement of auricular beads for auricular acupressure. She also shared that she has a mental health provider she sees virtually, and is interested in engaging in mindfulness practices. We will ensure Radha receives support via our interdisciplinary team. Recommendations: Continue 5 mcg Butrans patch Q7 days. Continue 4 mg PO hydromorphone Q3 hours PRN. Discontinue granisetron, ondansetron and prochlorperazine. Begin 5 mg olanzapine QHS. Allow 2.5 mg olanzapine QID PRN for breakthrough nausea. At some point, may consider scheduling 2.5 mg olanzapine Q morning. In this case, reduce PRN availability to TID. Schedule 2 tabs Senna-S BID. May increase to 3 tabs Senna-S BID. Schedule daily MiraLAX. May increase to BID dosing. Goal is for 1 softly formed BM per day. Palliative Medicine will continue to follow, and we will plan to check in on Radha over the weekend. For today, should questions or concerns arise, please don't hesitate to contact either myself or my Palliative Medicine disaster recovery consultant Dr. Lindsay Culver. Additionally, we can be reached at service pager [phone]. It is our pleasure to have the opportunity to participate in Radha's continued care. Thank you. Uma Estes APRN, C.N.P., M.S.N. Cosigned by Lindsay Culver M.D. at 07/03/2025 4:59 PM CDT Associated attestation - Lindsay Culver M.D. - 07/03/2025 4:59 PM CDT PALLIATIVE MEDICINE SLEEP TECHNICIAN COLLABORATIVE NOTE FOR ADVANCED PRACTICE PROVIDER (ANUPAM) I discussed the patient with the advanced accounting practice manager, but I did not see the patient myself.I reviewed the pertinent clinical history, findings and diagnostics, and I discussed the assessmentand plan in detail with the APC. I am in agreement with the assessment and recommendations as documented in today's note written by Uma Estes APRN, C.N.Delbert, M.S.N.. Please see her note for additional details and specific recommendations. She is the billable provider for this visit. Thank you for including us in the care of this patient and family. Lindsay Culver M.D. * Juana Gandhi M.D. - 07/03/2025 7:09 AM CDTAssociated Order(s): IP CONSULT TO GASTROENTEROLOGY GASTROENTEROLOGY & HEPATOBILIARY CONSULT Date/Time: 07/03/2025 7:09 AM CDT Patient Name: Radha Martinez : 1990 Chief Complaint/Reason for Consult: Abdominal pain, since stem cell transplant Subjective: HPI: Radha Martinez is a 35 y.o. 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 GI has been consulted for abdominal pain about 2 months duration. Briefly, Ms. Martinez has had an extensive workup for her abdominal pain including CT abdomen pelvis on 05/28/2025 that was unremarkable for an acute etiology of her symptoms. Additionally, she had arecent CT enterography on 06/30/2025 of her small bowel that did not demonstrate any abnormalities. She also had an EGD on 06/26/2025 that demonstrated oral thrush involving the tongue and oral cavity, mild gastritis with erosions and erythema and 1 nonbleeding gastric ulcer without stigmata of bleeding in the gastric body. She also had duodenitis from congestion with granularity. Please see below for pathology results, she had negative testing for H pylori and duodenal biopsies were negative for celiac disease. She also had a flexible sigmoidoscopy on 06/26/2025 with poor preparation of the colon, but the rectum and sigmoid were normal endoscopically. Biopsies were indeterminate for jdjcj-udsswl-shpi disease. She has now been readmitted to the hospital for ongoing abdominal pain. She has had several admissions for this problem. In addition to the above workup she has also had an ultrasound of her gallbladder that has been unremarkable as well as a pelvis ultrasound transvaginal that was unremarkable. Labs from this admission include CBC with normal hemoglobin of 11.8, normal platelets of 125, and normal leukocytes of 6.9. BMP shows normal electrolytes and normal creatinine of 0.75 and she has normal liver biochemistries. Lipase was checked and was normal. Labs that are pending include C3, C4, C1 esterase testing. Given that she has had chills blood cultures are ordered and pending. Regarding the chronic abdominal pain, she also has associated nausea. Prior admissions the palliative Medicine team has seen her to help with symptom improvement. She has tried cold packs, ice packs, lidocaine patches without success. She has been taking ibuprofen daily the past 2 weeks that has not singiciantly helped. It is present all the time but is worse with eating. She gets nausea on and off she states randomly and not in relation to food. She has notnoticed patterns to the nausea. She struggles with constipation and has had prune juice and MiraLAX in the hospital. She denies a sensation of incomplete evacuation. At home she takes dulcolax PRN. She has not tried fiber supplements. Sometimes she takes fleets enemas at home for constipation. She was on prednisone up to 40 mg daily in outpatient setting that was not helpful. ROS: Other than the pertinent positives and negatives listed in the HPI, a full review of systems including constitutional, HEENT, respiratory, cardiovascular, abdominal, musculoskeletal, genitourinary, neurological, psychiatric, endocrinologic, hematologic, and dermatologic complaints was negative. Objective: Vital Signs: Vitals: 07/03/25 0500 BP: 116/70 Pulse: 75 Resp: 18 Temp: 36.5 ??C SpO2: 99% Physical Exam: General: Sitting comfortably in chair, in no acute distress. Appears well. Affect and mood appropriate. Eyes:Clear conjunctiva without injection or icterus. Lung: Breathing comfortably on room air. Abdomen: Soft, non-distended, -tender to palpation in left lower quadrant with negative Carnett sign. Normoactive bowel sounds. No masses palpated. Extremities: Warm and well-perfused. No lower extremity edema. No asymmetric calf swelling or pain upon palpation. Neuro: AAO x 3. Skin: No rash. Prior imaging studies and/or endoscopies: CT enterography 06/30/2025: FINDINGS: Normal course and caliber of the [...] in size, unchanged compared back to 11/03/2024, withoutrecurrence of the marked splenomegaly seen in 2019. No suspicious lymphadenopathy within the abdomen or pelvis. Tiny fat-containing umbilical hernia, stable compared to prior CT dated 12/10/2018. The liver, gallbladder, pancreas, adrenal glands, kidneys, urinary bladder, and reproductive organsare unremarkable. Negative for adenopathy. Stable, mild degenerative changes at L5-S1 level. Ghost tracks within the bilateral ischii related to prior bone marrow biopsies. IMPRESSION: Negative for large or small bowel inflammation or imaging abnormality. 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 Ultrasound gallbladder 06/25/2025: IMPRESSION: 1. Normal sonographic appearance of the gallbladder. 2. Diffuse hepatic steatosis with geographic fatty sparing in the gallbladder fossa. CT abdomen pelvis 06/24/2025 with IV contrast: IMPRESSION: 1. Normal CT of the chest, abdomen, and pelvis. 2. Previous groundglass opacities from 06/05/2025 have resolved. Pathology from EGD and flexible sigmoidoscopy 06/26/2025: FINAL DIAGNOSIS A. Duodenum, 2nd part, Duodenal [...] apoptosis. Correlation with clinical symptoms is recommended. Assessment and Plan: Radha Martinez is a 35 y.o. 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 GI has been consulted for abdominal pain about 2 months duration. She has had an extensive workup for her abdominal pain that started post bone marrow transplant including cross-sectional imaging with CT abdomen pelvis with IV contrast that was unremarkable, CT enterography that showed normal small bowel, right upper quadrant ultrasound that was also normal, pelvic ultrasound that has also been unremarkable. Her cross-sectional imaging has not shown any concerning findings for typhilitis and her CBC is also within normal limits. Her EGD has shown gastritis as well as 1 gastric ulcer. Her flexible sigmoidoscopy showed biopsies that were indeterminate for volbt-mdmkfa-qpuw disease although she has not had any improvement in symptoms with prednisone. She has been taking ibuprofen daily for pain. Her abdominal pain is likely multifactorial in the setting of gastritis with gastric ulcer as well as constipation with possible pelvic floor dysfunction. Her biopsies have been negative for CMV. Catherinehas had an excellent and thorough workup by the bone Marrow transplant team for the abdominal pain.On review of her scans she does have a significant stool burden. # History of chronic myeloid leukemia status post unrelated donor allogeneic stem cell transplant on # Abdominal pain with workup including CT abdomen pelvis, CT enterography, EGD, flexible sigmoidoscopy with biopsy, gallbladder ultrasound, and pelvic ultrasound # EGD demonstrating gastritis and gastric ulcer with negative H pylori testing, likely from NSAID use # Abdominal pain likely multifactorial in the setting of constipation and peptic ulcer disease - Avoid all NSAIDs including ibuprofen. Minimize opioid use since will worsen her underlying constipation. - Recommend PPI b.i.d. for 8 weeks, then daily thereafter long-term given the gastritis and small gastric ulcer on EGD. Recommend follow up EGD in 3 months with her primary care provider to ensure healing of the gastric ulcer. - She has had a very extensive workup including upper and lower endoscopies and cross-sectional imaging with CT, pelvic ultrasound, gallbladder ultrasound, and CT enterography, we would not recommendany additional testing at this time. - For the abdominal pain, we would recommend a bowel regimen of MiraLax daily and also initiating linaclotide 72 mcg daily that can be uptitrated if needed. If she notices significant improvement in the linaclotide, please provide this medication for her on discharge to be continued as an outpatient. If needed, she can also take Dulcolax suppositories PRN for constipation. - In addition to the bowel regimen and linaclotide, consider starting low-dose gabapentin as a neuromodulator to help with the abdominal pain. - Recommend as backup if abdominal pain does not improve with the above measures, outpatient anorectal manometry ordered by primary care provider and if positive referral to the pelvic floor physicaltherapy and biofeedback program at [facility]. This patient was staffed with Dr. Cast, with the recommendations discussed with the primary team. Thank you for involving us in the care of this patient. Please page the GI consult pager at [phone] with any further questions or concerns. Juana Gandhi M.D. Gastroenterology & Hepatology Fellow PGY-6 Division of Gastroenterology & Hepatology [facility] Cosigned by Conrad Cast M.D. at 07/03/2025 3:13 PM CDT Associated attestation - Conrad Cast M.D. - 07/03/2025 3:13 PM CDT I have seen and examined the patient in conjunction with the GI consulting service and Dr. Gandhi. I agree with her documentation. The patient is a 35-year-old woman with past medical history of chronic myeloid leukemia with unrelated, matched allogeneic stem cell transplant in November of 2024. GI was consulted for ongoing abdominal pain. The patient notes that baseline prior to transplant she did not have any significant abdominal painor issues with her bowels. Since medication changes and her transplant, she has become more constipated. She was having some diarrhea at prompted her workup for nqlgh-kqopiz-dmhg disease. Recent EGD and colonoscopies are summarized by Dr. Gandhi. Bowels have reverted to constipation with the steroidsbut no change in pain. No clear abdominal wall component based on maneuvers. She has had cross-sectional imaging with enterography as well as a flexible sigmoidoscopy, EGD, right upper quadrant ultrasound, gynecologic evaluation and pelvic ultrasound. Review of her CT does show some elevated stool burden. She has been receiving medications that worsen constipation. She notes that her pain is characteristically there all of the time. Not related significantly to eating or improved with bowel movements. There do not appear to be times of 0 pain with sporadic exacerbations. Recent workup for hereditary/acquired angioedema, porphyria, and ANCA associated vasculitis were sent. No bloody stools. Weight has been stable. No drenching night sweats. No historical features of pelvic floor dyssynergy. Remainder of history and exam per Dr. Gandhi. I examined her abdomen as well with LLQ pain without guarding. She has been working with palliative care regarding symptom management. She is on duloxetine, Abilify, buprenorphine, hydromorphone, Atarax, ibuprofen (recently discontinued), Zofran, Protonix, steroids with plan transitioned to ruxolitinib if approved. Assessment: The patient has had a very thorough evaluation for drivers of abdominal pain. She has had a significant bowel change from her baseline pretransplant to a more constipation phenotype. I amsuspicious she has had some dysregulation in her gut micro biome and sensory system that is exacerbated by her underlying constipation and potentially any inflammatory change related to GVH related inflammation in the colon. I do not feel that further testing at this point in the hospital is going to add at this point. I would consider: - Escalation in bowel regimen that should include an osmotic laxative like MiraLax or milk of magnesia, intermittent stimulant laxative with senna, and consideration for Linzess 145-290 mcg per day. - Continue treatment for any GVH in the colon. I would be interested to see if any improvement withJakafi. - Coordination with palliative Care regarding neuromodulation. I wonder if a trial of slowly uptitrated gabapentin may be of use. I would be cautious with any added serotonergic agents given her current regimen. - I am not appreciating any significant features of pelvic floor dyssynergy but anorectal manometrycould be considered in the future if needed in the outpatient setting. - Follow up testing that was sent for porphyria, angioedema, vasculitis. Remainder per Dr. Gandhi. TT: 60 minutes documented in this encounter Nursing Notes * Chelsie Nielson R.N. - 07/06/2025 12:55 PM CDT Shift Goals: Clinical Goals for the Shift: pain control Identify possible barriers to meeting goals/advancing plan of care: none End of Shift Summary: Patient discharged safely to home/self care. AVS and medication list reviewedwith patient and caregiver at the bedside. All questions and concerns addressed. Vital signs stable. No nursing barriers to discharge identified at this time. * Brian Gonzalez R.N. - 07/06/2025 6:41 AM CDT Shift Goals: Clinical Goals for the Shift: pain control Identify possible barriers to meeting goals/advancing plan of care: End of Shift Summary: Patient remained safe, VSS. She was able to rest most of the night. She complained of pain around 23:30 and was medicated. Patient is pleasant and call light appropriate. Kanchan Gonzalez R.N. * Chelsie Nielson R.N. - 07/05/2025 6:22 PM CDT Shift Goals: Clinical Goals for the Shift: pain control Identify possible barriers to meeting goals/advancing plan of care: pain End of Shift Summary: Radha ambulated independently in the room and hallway several times today. She had multiple bowel movements after enema this morning. She reports the hyoscyamine has been helping with her pain. VSS on room air. * Milana Nuñez R.N. - 07/05/2025 2:35 AM CDT Shift Goals: Clinical Goals for the Shift: Adequate sleep Identify possible barriers to meeting goals/advancing plan of care: pain, discomfort End of Shift Summary: Patient did not sleep much overnight. Around 0230, patient reported increasedleft sided abdominal pain, rating pain 7/10. PRN med given and heat applied. Patient has not had a bm despite increased bowel regimen. Patient would like to try a tap water enema this morning. Electronically signed by: Milana Nuñez R.N. 07/05/25 6:51 AM CDT * Sean Daley R.N. - 07/04/2025 5:32 PM CDT Shift Goals: Clinical Goals for the Shift: Pain control Identify possible barriers to meeting goals/advancing plan of care: None. End of Shift Summary: Patient verbalized pain management has improved throughout the day. Patient has ambulated throughout the myers. VSS. * Uma Denis R.N. - 07/03/2025 2:16 PM CDT 07/03/25 1415 Auricular Acupressure Symptoms to Manage: Anxiety Auricular Acupressure Pre-Assessment Score- Anxiety: 4 Location Used: Right Ear Auricular Protocol Used (Right Ear): Mood 1: Calm Device Used (Right Ear): Titanium Ear Beads Number of Beads Placed: 5 Total time spent in auricular session: 15 PALLIATIVE CARE NURSING VISIT Patient Name: Radha Martinez Age: 35 y.o. Reason for Palliative Medicine Nurse Visit: Auricular Acupressure for symptom management in the setting of complex medical illness Patient is familiar with auricular acupressure as a healing modality for Anxiety/Stress management.Prior to initiating auricular acupressure, safety precautions were reviewed including skin integrity, and allergies. Patient verbalized understanding of rationale for auricular acupressure for symptom management and verbal consent was obtained to proceed with the session. RECOMMENDATION/PLAN Stimulation instructions provided: Gentle finger pressure several times/day Advised devices should be removed in 3-6 days or if pain, soreness, swelling, pinching, redness, heat, or itching develop. Reviewed most common auricular acupressure risks including local skin irritation/discomfort, mild tenderness or pain at the application site, and itching. Patient verbalized understanding of the above. She tolerated bead placement without difficulty. Auricular Acupressure Treatment Sheet [id number] were provided and reviewed with the patient. Uma Denis R.N. Palliative Care Nurse [facility] * Marry Buchanan R.N. - 07/03/2025 5:36 AM CDT Shift Goals: Clinical Goals for the Shift: VSS, Nausea control Identify possible barriers to meeting goals/advancing plan of care: pain and nausea End of Shift Summary: Patient was admitted in the evening, VSS, pain and nausea controlled with available interventions (see eMAR) documented in this encounter Miscellaneous Notes * Hospital Course - Jessica Avila APRN C.N.P., M.S.N. 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 She was admitted to inpatient BMT service on 07/02/2025 for further management of persistent abdominalpain, nausea and vomiting, and chills. Previously done EGD and Flex Sigmoidoscopy on 06/26/2025 demonstrated oral thrush, gastritis, non-bleeding gastric ulcer, and duodenitis. Pathology demonstrating scattered apoptosis in colonic mucosa, indeterminate for GVHD. CT abd/pelvis angiogram enterography obtained 06/30/2025 negative for large or small bowel inflammation of imaging abnormality, no marked splenomegaly. Amylase and lipase noted to be WNL GGT is 41, slightly over limits (to 36). Surveillance blood cultures done on admission negative Initial lactate resulted mildly elevated at 2.3 mmol/L, improved to 1.2 mmol/L after 1 liter 0.9% NS bolus. Urinalysis and urine culture mostly normal with a glucose of 300 and ketone of 5. Urine culture negative. 07/03 CRP<3, Proteinase 3 Ab <0.2, Myeloperoxidae <0.2 Porphyria, C3, C4, C1 esterase, ANCA pending She has been taking dilaudid for abdominal pain ( in addition to Buprenorphine patch) and on admission the dose was increased from 2 mg q 4 hrs to 4 mg q 3 hrs. Palliative care was involved in her care . Nausea was managed with Olanzapine. During the hospital stay she became constipated. This resolved with aggressive bowel management and tap water enema on 07/05 GI team was consulted , but since the work up was unrevealing they suggested Psych GI consult as anoutpatient. This will be requested upon dismissal. During hospital stay patient remained stable. Started on Levsin on 07/05 with significant improvement in pain and nausea. Prior to dismissal we started to taper her Dilaudid and Prednisone. Reported chest pain on 07/06 in AM. ECG was negative for acute changes and troponin was low. Pain resolved without intervention. It appears she has a pattern of night/early interventionist esophageal discomfort which likely is related to GERD. She will continue on PPI BID and take Maalox in AM if needed. She will be discharged on Dilaudid 20 mg po q 4 hrs with the goal to further taper as able. Prednisone will be decreased from 40 mg po daily to 30 mg po daily x 1 week, followed by taper 10 mg q week. We will plan for Psych GI consult as an outpatient and f/up with dr Rousseau in 2-3 weeks documented in this encounter Plan of Treatment Upcoming Encounters Date Type Department Care Team (Late st Contact Info) Description 07/21/2025 11:00 AM CDT Telemedicine Department of Palliative Care in [place], [place] [address] [place] [phone] Meghan Osorio M.D. [address] [place] [address] 07/22/2025 8:40 AM CDT Lab Department of Laboratory Medicine and Pathology, [facility], in [place], [place] [address] [place] [address] Becky Hernandez APRN, C.N.P., D.N.P. [address] [place] [phone] 07/22/2025 9:30 AM CDT Office Visit Pedro Aravind sanchez [facility] for Transplantation and Clinical Regeneration in [place], [place] [address] [place] [address] Becky Hernandez APRN, C.N.P., D.N.P. [address] [place] [phone] 07/30/2025 2:00 PM CDT Appointment Division of Gastroenterology in [place], [place] [address] [place] [phone] Derrick Cruz Jr., M.D., M.S. [address] [place] [phone] 08/11/2025 9:00 AM CDT Nurse Only Section of Infectious Diseases in [place], [place] [address] [place] [phone] Jessica Rousseau M.B.B.S. [address] [place] [phone] 08/11/2025 1:00 PM CDT Clinical Support Department of Palliative Care in [place], [place] [address] [place] [phone] Uma Aly APRN, C.N.P., M.S.N. [address] [place] [phone] 08/13/2025 10:00 AM CDT Lab Department of Laboratory Medicine and Pathology, [facility], in [place], [place] [address] [place] [address] Jessica Rousseau M.B.B.S. [address] [place] [phone] 08/13/2025 10:30 AM CDT [facility] in [place], [place] [address] [place] [address] Jessica Rousseau M.B.B.S. [address] [place] [phone] 08/13/2025 11:00 AM CDT [facility] [place] [facility] in [place], [place] [address] [place] [address] Jessica Rousseau M.B.B.S. [address] [place] [phone] 08/13/2025 11:30 AM CDT [facility] in [place], [place] [address] [place] [address] Jessica Rousseau M.B.B.S. [address] [place] [phone] 09/25/2025 10:30 AM AIRLINE ATTENDANT Telemedicine [facility] Transplantation and Clinical Regeneration in [place], [place] [address] [place] [address] Jessica Rousseau M.B.B.S. [address] [place] [phone] documented as of this encounter Procedures Procedure Name Priority Date/Time Associated Diagnosis Comments TROPONIN T, 2H/6H REFLEX, 5TH GEN, P Timed 07/06/2025 10:24 AM CDT TROPONIN T, BASELINE, 5TH GEN, P STAT 07/06/2025 8:01 AM CDT ECG STAT 07/06/2025 7:57 AM CDT EBV DNA DETECT/QUANT, P Routine 07/06/20 5:47 AM CDT CBC NO CALL BACK, REFLEX T/S Routine 07/06/2025 5:47 AM CDT CMV DNA DETECT/QUANT, P Routine 07/06/20 5:47 AM CDT ANTIBODY SCREEN, B Routine 07/06/2025 5: 47 AM CDT PHOSPHORUS (INORGANIC), S Routine 07/06/2025 5:47 AM CDT MAGNESIUM, S Routine 07/06/2025 5:47 AM CDT COMPREHENSIVE METABOLIC PANEL, S/P Routine 07/06/2025 5:47 AM CDT 25-HYDROXYVITAMIN D2 AND D3, S Routine 07/06/2025 5:46 AM CDT PORPHYRINS, F Routine 07/05/2025 8:27 AM CDT CBC NO CALL BACK, REFLEX T/S Routine 07/05/2025 12:52 AM CDT BASIC METABOLIC PANEL, S/P Routine 07/05/2025 12:52 AM CDT CBC NO CALL BACK, REFLEX T/S Routine 07/04/2025 5:31 AM CDT BASIC METABOLIC PANEL, S/P Routine 07/04/2025 5:31 AM CDT ANCA VASCULITIS PANEL, S Timed 025 10:26 AM CDT UROPORPHYRINOGEN DECARBOXYLASE, WB Timed 07/03/2025 10:25 AM CDT C4 COMPL, FUNCTIONAL, S Timed 07/03/20 10:25 AM CDT C3 COMPL, FUNCTIONAL, S Timed 07/03/20 10:25 AM CDT ALA DEHYDRATASE, WB Timed 07/03/2025 1 0:25 AM CDT C-REACTIVE PROTEIN (CRP), S/P Timed 07/03/2025 10:25 AM CDT C1 ESTERASE INHIBITOR, FUNCTIONAL ASSAY, S Timed 07/03/2025 10:24 AM CDT LACTATE, B/P Timed 07/03/2025 1:02 AM CDT LACTATE, B/P Timed 07/03/2025 1:02 AM CDT BACTERIA / HELEN CULTURE, BLOOD Routine 07/02/2025 9:48 PM CDT BACTERIA / HELEN CULTURE, BLOOD Routine 07/02/2025 9:40 PM CDT CBC WITH DIFFERENTIAL, B STAT 025 9:40 PM CDT LACTATE FOR SEPSIS WITH REFLEX STAT 07/02/2025 9:39 PM CDT CMV DNA DETECT/QUANT, P STAT 07/02/20 9:39 PM CDT MAGNESIUM, S STAT 07/02/2025 9:39 PM CDT LIPASE, S/P STAT 07/02/2025 9:39 PM CDT GAMMA-GLUTAMYLTRANSFERAS E (GGT), S/P STAT 07/02/2025 9:39 PM CDT AMYLASE, TOT, S STAT 07/02/2025 9:39 PM CDT COMPREHENSIVE METABOLIC PANEL, S/P STAT 07/02/2025 9:39 PM CDT HC OSMOLALITY ASSAY URINE Routine 07/02/2025 9:29 PM CDT DIPSTICK, U Routine 07/02/2025 9:29 PM CDT PH, RANDOM, U Routine 07/02/2025 9:29 PM CDT MICROSCOPIC MANUAL Routine 07/02/2025 9: 29 PM CDT BACTERIAL CULTURE, AEROBIC + SUSC, URINE Routine 07/02/2025 9:29 PM CDT URINALYSIS WITH MICROSCOPIC Routine 07/02/2025 9:29 PM CDT ECG Routine 07/02/2025 9:20 PM CDT documented in this encounter Results * Troponin T, 2 Hour with 6 Hour Reflex, 5th Gen (07/06/2025 10:24 AM CDT) Troponin T, 2 hr, 5th gen <6 <=10 ng/L 07/06/2025 11:51 AM CDT DTL 2H Delta 0 ng/L 07/06/2025 11:51 AM CDT DTL Comment:6 hour collection no t indicated. 2H Delta Interp Not Changing 07/06/2025 11:51 AM CDT DTL Blood 07/06/2025 10:2 4 AM CDT 07/06/2025 10:48 AM CDT Jessica Avila APRN, C.N.P., M.S.N. LAB BLOOD T ROPONIN Final Result Performing Organization Address [facility] Co de Phone Number [facility] [address] 200 [place] [address] * Troponin T, Baseline with 2 Hour/6 Hour Reflex Biomarker Panel (07/06/2025 8:01 AM CDT) Troponin T, Baseline, 5th gen <6 <=10 ng/L 07/06/2025 9:32 AM CDT DTL Blood (Blood, Venous) 07/06/2025 8:01 AM CDT 07/06/2025 8:50 AM CDT Jessica Avila APRN, C.N.P., M.S.N. LAB BLOOD T ROPONIN Final Result Performing Organization Address [facility] Co de Phone Number [facility] [address] 200 [place] [address] * ECG 12 Lead (07/06/2025 7:57 AM CDT) Ventricular Rate ECG/Min 73 BPM MUSE IA Interval 174 ms MUSE QRSD Interval 82 ms MUSE QT Interval 380 ms MUSE QTC Interval 418 ms MUSE P [place]and[place] 51 degrees MUSE R [place] 6 degrees MUSE T Wave [place] 26 degrees MUSE 07/06/2025 7:57 AM CDT 07/06/2025 8:11 AM CDT Impressions MUSE - 07/06/2025 8:11 AM CDT Normal sinus rhythm Normal ECG When compared with ECG of 02-Jul-2025 21:20, No significant change was found Reviewed by LEONEL Velasquez Narrative Procedure Note Marko Bourgeois Jr., M.D. - 07/06/2025 IMPRESSION: Normal sinus rhythm Normal ECG When compared with ECG of 02-Jul-2025 21:20, No significant change was found Reviewed by LEONEL Velasquez Jessica Avila APRN, C.N.P., M.S.N. ECG ORDERAB LES Final Result Performing Organization Address [facility] de Phone Number MUSE NA * CMV DNA Detect / Quant, Plasma (07/06/2025 5:47 AM CDT) CMV DNA Detect/Quant, P Undetected Undetected IU/mL 07/06/2025 8:46 PM CDT [facility] Comment: Result in log IU/mL is Undetected. ----ADDITIONAL INFORMATION---- The quantification range of this assay is 35 to 10,000,000 IU/mL (1.54 log to 7.00 log IU/mL). Testing was performed using the lucrecia CMV test ([employer] Blood (Blood, Peripheral Draw) 07/06/2025 5:47 AM CDT 07/06/2025 8:12 AM CDT Jessica Avila APRN, C.N.P. , M.S.N. LAB MICROBIOLOGY - BLOOD ORDERABLES Final Result Performing Organization Address [facility] Co de Phone Number [facility] [address] [place] [address] [facility] [address] [place] [address] [place] [address] * EBV DNA Detect/Quant (07/06/2025 5:47 AM CDT) Pathologist [facility] EBV DNA Detect/Quant, P Undetected Undetected IU/mL 07/06/2025 2:33 PM CDT [facility] Comment: Result in log IU/mL is Undetected. ----ADDITIONAL INFORMATION---- The quantification range of this assay is 35 to 100,000,000 IU/mL (1.54 log to 8.00 log IU/mL). Testing was performed using the lucrecia EBV test ([employer] Blood (Blood, Venous) 07/06/2025 5:47 AM CDT 07/06/2025 8:12 AM CDT us Jamari Basilio APRNNKatalinaP. , M.S.N. LAB MICROBIOLOGY - BLOOD ORDERABLES Final Result [facility] [address] [place] [address] [facility] [address] [place] [address] [place] [place] [address] * (ABNORMAL) CBC no call back, reflex T/S HGB <8 (07/06/2025 5:47 AM CDT) Hemoglobin 10.7(L) 11.6 - 15.0 g/dL 07/06/2025 6:17 AM CDT DTL Hematocrit 34.2(L) 35.5 - 44.9 % 07/06/2025 6:17 AM CDT DTL Erythrocytes 4.03 3.92 - 5.13 x10(12)/L 07/06/2025 6:17 AM CDT DTL MCV 84.9 78.2 - 97.9 fL 07/06/2025 6:17 AM CDT DTL RBC Distrib Width 14.7 12.2 - 16.1 % 07/06/2025 6:17 AM CDT DTL Platelet Count 210 157 - 371 x10(9)/L 07/06/2025 6:17 AM CDT DTL Leukocytes 7.0 3.4 - 9.6 x10(9)/L 07/06/2025 6:17 AM CDT DTL Neutrophils 5.32 1.56 - 6.45 x10(9)/L 07/06/2025 6:45 AM CDT [facility] Comment:Rechecked Lymphocytes 1.19 0.95 - 3.07 x10(9)/L 07/06/2025 6:46 AM CDT DTL Monocytes 0.46 0.26 - 0.81 x10(9)/L 07/06/2025 6:46 AM CDT DTL Eosinophils 0.03 0.03 - 0.48 x10(9)/L 07/06/2025 6:46 AM CDT DTL Basophils 0.04 0.01 - 0.08 x10(9)/L 07/06/2025 6:46 AM CDT DTL Blood (Blood, Venous) 07/06/2025 5:47 AM CDT 07/06/2025 6:07 AM CDT Jessica Avila APRN, C.N.P., M.S.N. LAB BLOOD N ON ADD-ON Final Result Performing Organization Address [facility]/ZIP Co de Phone Number [facility] 200 [place] [address], [facility] DTL [facility] 200 [place] [address] DHPM [facility] 200 [place] [address] * Antibody Screen, RBC (with reflex Antibody ID) (07/06/2025 5:47 AM CDT) Antibody Screen Negative Negative 07/06/2025 6:58 AM CDT ETRM Blood (Blood, Venous) 07/06/2025 5:47 AM CDT 07/06/2025 6:22 AM CDT Edd Basilio APRNP., M.S.N. LAB BLOOD B ANK TEST ORDERABLES Final Result Performing Organization Address [facility] de Phone Number [facility] 200 [place] [address], [facility] ETRM [facility] 200 [place] [address] * Phosphorus Inorganic (07/06/2025 5:47 AM CDT) Phosphorus (Inorganic), S 4.4 2.5 - 4.5 mg/dL 07/06/2025 6:44 AM CDT DTL Blood (Blood, Venous) 07/06/2025 5:47 AM CDT 07/06/2025 6:06 AM CDT Jamari Basilio APRNN.P., M.S.N. LAB BLOOD A DD-ON Final Result Performing Organization Address City/[facility] Co de Phone Number [facility] 200 [place] [address] * Magnesium (07/06/2025 5:47 AM CDT) Magnesium, S 2.1 1.7 - 2.3 mg/dL 07/06/2025 6:44 AM CDT DTL Blood (Blood, Venous) 07/06/2025 5:47 AM CDT 07/06/2025 6:06 AM CDT Jessica Avila APRN C.N.P., M.S.N. LAB BLOOD A DD-ON Final Result Performing Organization Address [facility] Co de Phone Number [facility] 200 [place] [address], [place] [address] * (ABNORMAL) Comprehensive Metabolic Panel (07/06/2025 5:47 AM CDT) Potassium, S 4.1 3.6 - 5.2 mmol/L 07/06/2025 6:44 AM CDT DTL Sodium, S 140 135 - 145 mmol/L 07/06/2025 6:44 AM CDT DTL Chloride, S 103 98 - 107 mmol/L 07/06/2025 6:44 AM CDT DTL Bicarbonate, S 24 22 - 29 mmol/L 07/06/2025 6:44 AM CDT DTL Anion Gap 13 7 - 15 07/06/2025 6:44 AM CDT DTL BUN (Blood Urea Nitrogen), S 14 6 - 21 mg/dL 07/06/2025 6:44 AM CDT DTL Creatinine 0.77 0.59 - 1.04 mg/dL 07/06/2025 6:44 AM CDT DTL Estimated GFR (eGFR) >90 >=60 mL/min/BS A 07/06/2025 6:44 AM CDT DTL Comment: Estimated GFR calculated using the 2020 CKD_EPI creatinine equation. Calcium, Total, S 8.8 8.6 - 10.0 mg/dL 07/06/2025 6:44 AM CDT DTL Glucose, S 143(H) 70 - 140 mg/dL 07/06/2025 6:44 AM CDT DTL Protein, Total, S 6.1(L) 6.3 - 7.9 g/dL 07/06/2025 6:44 AM CDT DTL Albumin, S 3.8 3.5 - 5.0 g/dL 07/06/2025 6:44 AM CDT DTL Aspartate Aminotransferase (AST), S 14 8 - 43 U/L 07/06/2025 6:44 AM CDT DTL Alkaline Phosphatase, S 102 35 - 104 U/L 07/06/2025 6:44 AM CDT DTL Alanine Aminotransferase (ALT), S 20 7 - 45 U/L 07/06/2025 6:44 AM CDT DTL Bilirubin, Total, S <0.2 0.0 - 1.2 mg/dL 07/06/2025 6:44 AM CDT DTL Blood (Blood, Venous) 07/06/2025 5:47 AM CDT 07/06/2025 6:06 AM CDT Jessica Avila APRN, C.N.P., M.S.N. LAB BLOOD A DD-ON Final Result [facility] [address] [place] [address], [facility] [address] [place] [address] * 25-Hydroxyvitamin D2 and D3 (07/06/2025 5:46 AM CDT) [facility] Signature 25-Hydroxy D2 <4.0 ng/mL 07/07/2025 10:42 AM CDT [facility] 25-Hydroxy D3 27 ng/mL 07/07/2025 10:42 AM CDT [facility] 25-Hydroxy D Total 27 ng/mL 2024 10:42 AM CDT [facility] Comment: ----REFERENCE VALUE---- 25-HYDROXY D TOTAL (D2+D3) Optimum levels in the healthy population are 20-50. ----ADDITIONAL INFORMATION---- This test was developed and its performance characteristics determined by [facility] in a manner consistent with CLIA requirements. This test has not been cleared or approved by the U.S. Food and Drug Administration. Blood (Blood, Venous) 07/06/2025 5:46 AM CDT 07/06/2025 10:21 AM CDT us Jessica Avila APRN, C.N.P., M.S.N. LAB BLOOD A DD-ON Final Result [facility] [address] [place] [address] [facility] [address] [place] [address] [place] [address] * Porphyrins, Feces (07/05/2025 8:27 AM CDT) Total weight 17 g 07/10/2025 3:51 PM CDT DTL Collection Duration 24 h 07/10 3:51 PM CDT DTL Uroporphyrin I <1 <120 mcg/24 h 07/10/2025 3:51 PM CDT DTL Uroporphyrin III <1 <50 mcg/24 h 07/10/2025 3:51 PM CDT DTL Heptacarboxyl I <1 <40 mcg/24 h 07/10/2025 3:51 PM CDT DTL Heptacarboxyl III <1 <40 mcg/24 h 07/10/2025 3:51 PM CDT DTL Isoheptacarboxyl <1 <30 mcg/24 h 07/10/2025 3:51 PM CDT DTL Hexacarboxyl I <1 <10 mcg/24 h 07/10/2025 3:51 PM CDT DTL Hexacarboxyl III <1 <10 mcg/24 h 07/10/2025 3:51 PM CDT DTL Isohexacarboxyl <1 <10 mcg/24 h 07/10/2025 3:51 PM CDT DTL Pentacarboxyl I <1 <20 mcg/24 h 07/10/2025 3:51 PM CDT DTL Pentacarboxyl III <1 <20 mcg/24 h 07/10/2025 3:51 PM CDT DTL Isopentacarboxyl <1 <80 mcg/24 h 07/10/2025 3:51 PM CDT DTL Coproporphyrin I 2 <500 mcg/24 h 07/10/2025 3:51 PM CDT DTL Coproporphyrin III <1 <400 mcg/24 h 07/10/2025 3:51 PM CDT DTL Isocoproporphyrin <1 <200 mcg/24 h 07/10/2025 3:51 PM CDT DTL Protoporphyrin <1 <1500 mcg/24 h 07/10/2025 3:51 PM CDT DTL CoproIII/CoproI ratio 0.35 <1.20 07/10/2025 3:51 PM CDT DTL Reviewed by Dayana Fall M.D., Ph.D. 07/10/2025 3:51 PM CDT DTL Interpretation In this sample, the porphyrins profile was normal. However, due to the small weight received, the porphyrin values may be falsely decreased. Interpret results with caution. Current reference ranges were based on a daily fecal excretion between 100-200 grams. Consider submitting another specimen of approximately 100 grams to confirm these results. 07/10/2025 3:51 PM CDT DTL Comment: ----ADDITIONAL INFORMATION---- High-Performance Liquid Chromatography (HPLC) with fluorescence detection This test was developed and its performance characteristics determined by [facility] in a manner consistent with CLIA requirements. This test has not been cleared or approved by the U.S. Food and Drug Administration. Stool (Stool, 24 Hours) 07/05/2025 8:27 AM CDT 07/06/2025 4:38 PM CDT us Natalya Carlos P.A.-C. LAB BODY FLUIDS AND STOOLS ORDERABLES Final Result [facility] [address] [place] [address], [facility] DTL [address] [place] [address] * Basic Metabolic Panel (07/05/2025 12:52 AM CDT) Potassium, S 4.2 3.6 - 5.2 mmol/L 07/05/2025 1:29 AM CDT DTL Sodium, S 139 135 - 145 mmol/L 07/05/2025 1:29 AM CDT DTL Chloride, S 103 98 - 107 mmol/L 07/05/2025 1:29 AM CDT DTL Bicarbonate, S 24 22 - 29 mmol/L 07/05/2025 1:29 AM CDT DTL Anion Gap 12 7 - 15 07/05/2025 1:29 AM CDT DTL BUN (Blood Urea Nitrogen), S 10 6 - 21 mg/dL 07/05/2025 1:29 AM CDT DTL Creatinine 0.80 0.59 - 1.04 mg/dL 07/05/2025 1:29 AM CDT DTL Estimated GFR (eGFR) >90 >=60 mL/min/BSA 07/05/2025 1:29 AM CDT DTL Comment: Estimated GFR calculated using the 2020 CKD_EPI creatinine equation. Calcium, Total, S 9.1 8.6 - 10.0 mg/dL 07/05/2025 1:29 AM CDT DTL Glucose, S 126 70 - 140 mg/dL 07/05/2025 1:29 AM CDT DTL Blood (Blood, Venous) 07/05/2025 12:52 AM CDT 07/05/2025 1:02 AM CDT Jessica Avila APRN, C.N.P., M.S.N. LAB BLOOD A DD-ON Final Result [facility] [address] [place] [address], [facility] [address] [place] [address] * (ABNORMAL) CBC no call back, reflex T/S HGB <8 (07/05/2025 12:52 AM CDT) Hemoglobin 10.5(L) 11.6 - 15.0 g/dL 07/05/2025 1:11 AM CDT DTL Hematocrit 32.3(L) 35.5 - 44.9 % 07/05/2025 1:11 AM CDT DTL Erythrocytes 3.90(L) 3.92 - 5.13 x10(12)/L 07/05/2025 1:11 AM CDT DTL MCV 82.8 78.2 - 97.9 fL 07/05/2025 1:11 AM CDT DTL RBC Distrib Width 14.6 12.2 - 16.1 % 07/05/2025 1:11 AM CDT DTL Platelet Count 182 157 - 371 x10(9)/L 07/05/2025 1:11 AM CDT DTL Leukocytes 6.8 3.4 - 9.6 x10(9)/L 07/05/2025 1:11 AM CDT DTL Neutrophils 5.06 1.56 - 6.45 x10(9)/L 07/05/2025 1:11 AM CDT DHPM Lymphocytes 1.18 0.95 - 3.07 x10(9)/L 07/05/2025 1:11 AM CDT DTL Monocytes 0.55 0.26 - 0.81 x10(9)/L 07/05/2025 1:11 AM CDT DTL Eosinophils <0.03 0.03 - 0.48 x10(9)/L 07/05/2025 1:11 AM CDT DTL Basophils <0.03 0.01 - 0.08 x10(9)/L 07/05/2025 1:11 AM CDT DTL Blood (Blood, Venous) 07/05/2025 12:52 AM CDT 07/05/2025 1:02 AM CDT us Jessica Avila APRN, C.N.P., M.S.N. LAB BLOOD N ON ADD-ON Final Result [facility] [address] [place] [address], [facility] DTL [facility] [address] [place] [address] DHPM [facility] 200 [place] [address] * Basic Metabolic Panel (07/04/2025 5:31 AM CDT) Potassium, S 4.4 3.6 - 5.2 mmol/L 07/04/2025 6:50 AM CDT DTL Sodium, S 140 135 - 145 mmol/L 07/04/2025 6:50 AM CDT DTL Chloride, S 103 98 - 107 mmol/L 07/04/2025 6:50 AM CDT DTL Bicarbonate, S 25 22 - 29 mmol/L 07/04/2025 6:50 AM CDT DTL Anion Gap 12 7 - 15 07/04/2025 6:50 AM CDT DTL BUN (Blood Urea Nitrogen), S 10 6 - 21 mg/dL 07/04/2025 6:50 AM CDT DTL Creatinine 0.79 0.59 - 1.04 mg/dL 07/04/2025 6:50 AM CDT DTL Estimated GFR (eGFR) >90 >=60 mL/min/BSA 07/04/2025 6:50 AM CDT DTL Comment: Estimated GFR calculated using the 2020 CKD_EPI creatinine equation. Calcium, Total, S 9.0 8.6 - 10.0 mg/dL 07/04/2025 6:50 AM CDT DTL Glucose, S 128 70 - 140 mg/dL 07/04/2025 6:50 AM CDT DTL Blood (Blood, Venous) 07/04/2025 5:31 AM CDT 07/04/2025 6:09 AM CDT us Natalya Carlos P.A.-C. LAB BLOOD ADD-ON Final Res ult [facility] 200 [place] [address], [facility] 200 [place] [address] * (ABNORMAL) CBC no call back, reflex T/S HGB <8 (07/04/2025 5:31 AM CDT) Pathologist [facility] Hemoglobin 10.5(L) 11.6 - 15.0 g/dL 07/04/2025 6:12 AM CDT DTL Hematocrit 33.0(L) 35.5 - 44.9 % 07/04/2025 6:12 AM CDT DTL Erythrocytes 3.88(L) 3.92 - 5.13 x10(12)/L 07/04/2025 6:12 AM CDT DTL MCV 85.1 78.2 - 97.9 fL 07/04/2025 6:12 AM CDT DTL RBC Distrib Width 14.5 12.2 - 16.1 % 07/04/2025 6:12 AM CDT DTL Platelet Count 183 157 - 371 x10(9)/L 07/04/2025 6:12 AM CDT DTL Leukocytes 5.9 3.4 - 9.6 x10(9)/L 07/04/2025 6:12 AM CDT DTL Neutrophils 4.28 1.56 - 6.45 x10(9)/L 07/04/2025 6:12 AM CDT PM Lymphocytes 1.21 0.95 - 3.07 x10(9)/L 07/04/2025 6:12 AM CDT DTL Monocytes 0.41 0.26 - 0.81 x10(9)/L 07/04/2025 6:12 AM CDT DTL Eosinophils <0.03 0.03 - 0.48 x10(9)/L 07/04/2025 6:12 AM CDT DTL Basophils <0.03 0.01 - 0.08 x10(9)/L 07/04/2025 6:12 AM CDT DTL Blood (Blood, Venous) 07/04/2025 5:31 AM CDT 07/04/2025 6:01 AM CDT us Natalya Carlos P.A.-C. LAB BLOOD NON ADD-ON Final Result [facility] [address] [place] [address], [facility] DTL [facility] [address] [place] [address] DHPM [facility] [address] [place] [address] * ANCA (Antineutrophil Cytoplasmic Antibodies) Vasculitis Panel (07/03/2025 10:26 AM CDT) Pathologist [facility] Myeloperoxidase Ab, S <0.2 <0.4 (Negative ) U 07/03/2025 1:48 PM CDT [facility] Proteinase 3 Ab (PR3), S <0.2 <0.4 (Negative ) U 07/03/2025 1:48 PM CDT [facility] Blood (Blood, Venous) 07/03/2025 10:26 AM CDT 07/03/2025 12:52 PM CDT Natalya Carlos P.A.-C. LAB BLOOD ADD-ON Final Res ult Performing Organization Address City/[facility]/ZIP Co de Phone Number [facility] [address] [place] [address] [facility] [address] [place] [address] * CRP (C-Reactive Protein) (07/03/2025 10:25 AM CDT) Pathologist [facility] C-Reactive Protein (CRP), S <3.0 <5.0 mg/L 07/03/2025 11:09 AM CDT [facility] Blood (Blood, Venous) 07/03/2025 10:25 AM CDT 07/03/2025 10:36 AM CDT Natalya SladeC. LAB BLOOD ADD-ON Final Res ult [facility] [address] [place] [address], [facility] [address] [place] [address] * (ABNORMAL) C4 Complement, Functional (07/03/2025 10:25 AM CDT) Pathologist [facility] C4 Complement, Functional, S 61(H) 22 - 45 U/mL 07/07/2025 11:10 AM CDT [facility] Comment: ----ADDITIONAL INFORMATION---- This test was developed and its performance characteristics determined by [facility] in a manner consistent with CLIA requirements. This test has not been cleared or approved by the [place]. Food and Drug Administration. Blood (Blood, Venous) 07/03/2025 10:25 AM CDT 07/03/2025 1:14 PM CDT Natalya Carlos P.A.-C. LAB BLOOD NON ADD-ON Final Result Performing Organization Address [facility] Co de Phone Number [facility] [address] [place] [address] [facility] [address] [place] [address] * (ABNORMAL) C3 Complement, Functional (07/03/2025 10:25 AM CDT) C3 Complement, Functional, S 51(H) 21 - 50 U/mL 07/07/2025 11:10 AM CDT [facility] Comment: ----ADDITIONAL INFORMATION---- This test was developed and its performance characteristics determined by [facility] in a manner consistent with CLIA requirements. This test has not been cleared or approved by the U.S. Food and Drug Administration. Blood (Blood, Venous) 07/03/2025 10:25 AM CDT 07/03/2025 1:14 PM CDT Natalya Carlos P.A.-C. LAB BLOOD NON ADD-ON Final Result Performing Organization Address [facility] Co de Phone Number [facility] [address] [place] [address] [facility] [address] [place] [address] * Aminolevulinic Acid Dehydratase (ALAD) (07/03/2025 10:25 AM CDT) ALA Dehydratase 6.4 nmol/L/s ec 07/08/2025 8:16 AM CDT DTL Comment: ----REFERENCE VALUE---- >=4.0 nmol/L/sec 3.5-3.9 nmol/L/sec (Indeterminate) <3.5 nmol/L/sec (Diminished) Reviewed By Dayana Fall M.D., Ph.D. 07/08/2025 8:16 AM CDT DTL Interpretation In this sample, the erythrocyte aminolevulinic acid dehydratase activity was normal. Please be aware that this assay is not useful in evaluating lead intoxication as it re-activates ALAD that may have been inhibited by lead. 07/08/2025 8:16 AM CDT DTL Comment: ----ADDITIONAL INFORMATION---- Enzymatic End point/Spectrofluorometric This test was developed and its performance characteristics determined by [facility] in a manner consistent with CLIA requirements. This test has not been cleared or approved by the U.S. Food and Drug Administration. Blood (Blood, Venous) 07/03/2025 10:25 AM CDT 07/03/2025 11:09 AM CDT Natalya Carlos P.A.-C. LAB GENETIC TESTING Final Result [facility] - [facility] [address] [place] [address], [facility] DTL 200 [facility] [address] [place] [address] * Uroporphyrinogen Decarboxylase (UPG D), Whole Blood (07/03/2025 10:25 AM CDT) UPG Decarboxylase, WB 1.81 RU 07/08/2025 8:16 AM CDT DTL Comment: ----REFERENCE VALUE---- > or =1.0 RU (normal) 0.80-0.99 RU (Indeterminate) <0.80 RU (indicative of PCT type II) Reviewed By Dayana Fall M.D., Ph.D. 07/08/2025 8:16 AM CDT DTL Interpretation (UPGD) In this sample, erythrocyte uroporphyrinogen decarboxylase (UROD) activity was normal. While this finding rules out type II porphyria cutanea tarda, it does not eliminate the possibility of types I or III in which only hepatic UROD is deficient. If clinically indicated, consider urine porphyrins analysis ([facility] test PQNRU). Please contact the [employer] disaster recovery consultant or genetic counselor tool liaison ( ) if you have any questions. 07/08/2025 8:16 AM CDT DT Comment: ----ADDITIONAL INFORMATION---- High-Performance Liquid Chromatography (HPLC)/Incubation of Lysed Erythrocytes This test was developed and its performance characteristics determined by [facility] in a manner consistent with CLIA requirements. This test has not been cleared or approved by the U.S. Food and Drug Administration. Blood (Blood, Venous) 07/03/2025 10:25 AM CDT 07/03/2025 11:09 AM CDT Natalya SladeCKatalina LAB BLOOD ADD-ON Final Res ult Performing Organization Address [facility] Co de Phone Number [facility] [address] [place] [address], [facility] DT 200 [facility] 200 [place] [address] * C1 Esterase Inhibitor, Functional Assay (07/03/2025 10:24 AM CDT) [facility] C1 Esterase Inhib, Functional, S >90 % 07/06/2025 3:05 PM CDT [facility] Comment: ----REFERENCE VALUE---- Normal: >67% Equivocal: 41-67% Abnormal: <41% Blood (Blood, Venous) 07/03/2025 10:24 AM CDT 07/03/2025 1:15 PM CDT Natalya Ferrer-C. LAB BLOOD NON ADD-ON Final Result Performing Organization Address [facility]/ZIP Co de Phone Number [facility] [address] [place] [address] [facility] [address] [place] [address] * Lactate (07/03/2025 1:02 AM CDT) [facility] Lactate, P 1.2 0.5 - 2.2 mmol/L 07/03/2025 1:37 AM CDT DTL Blood (Blood, Venous) 07/03/2025 1:02 AM CDT 07/03/2025 1:10 AM CDT Satnam Ochoa APRN.N.P., D.N.P., M.S. N. LAB BLOOD NON ADD-ON Final Result Performing Organization Address [facility] Co de Phone Number [facility] [address] [place] [address] * Lactate (07/03/2025 1:02 AM CDT) Lactate, P 1.3 0.5 - 2.2 mmol/L 07/03/2025 1:37 AM CDT DTL Blood 07/03/2025 1:02 AM CDT 07/03/2025 1:10 AM CDT Satnam Ochoa APRN.N.P., D.N.P., M.S. N. LAB BLOOD NON ADD-ON Final Result Performing Organization Address [facility] de Phone Number [facility] [address] [place] [address] * Bacteria / Helen Culture, Blood #2 (07/02/2025 9:48 PM CDT) Bacteria/Yulia da Culture, Blood No growth after 5 days of incubation. 07/07/2025 11:02 PM CDT DTL Blood (Blood, Peripheral Draw) 07/02/2025 9:48 PM CDT 07/02/2025 10:06 PM CDT Comment:Specimen Source Site : Blood Jamari Ochoa APRNN.P., Heaven.N.P., M.S.N. LAB MICROBIOLOGY - GENERAL ORDERABLES Final Result Performing Organization Address [facility] Co de Phone Number [facility] [address] [place] [address] * Bacteria / Helen Culture, Blood #1 (07/02/2025 9:40 PM CDT) [facility] Bacteria/Yulia da Culture, Blood No growth after 5 days of incubation. 07/07/2025 11:02 PM CDT DTL Blood (Blood, Peripheral Draw) 07/02/2025 9:40 PM CDT 07/02/2025 10:06 PM CDT Comment:Specimen Source Site : Blood Carlee Armas APRN, C.N.P., Heaven.N.P., M.S.N. LAB MICROBIOLOGY - GENERAL ORDERABLES Final Result Performing Organization Address [facility] Co de Phone Number [facility] [address] [place] [address], [facility] 200 [place] [address] * CBC with Differential, Blood (07/02/2025 9:40 PM CDT) [facility] Hemoglobin 11.8 11.6 - 15.0 g/dL 07/02/2025 10:08 PM CDT DTL Hematocrit 36.3 35.5 - 44.9 % 07/02/2025 10:08 PM CDT DTL Erythrocytes 4.34 3.92 - 5.13 x10(12)/L 07/02/2025 10:08 PM CDT DTL MCV 83.6 78.2 - 97.9 fL 07/02/2025 10:08 PM CDT DTL RBC Distrib Width 14.5 12.2 - 16.1 % 07/02/2025 10:08 PM CDT DTL Platelet Count 225 157 - 371 x10(9)/L 07/02/2025 10:08 PM CDT DTL Leukocytes 6.9 3.4 - 9.6 x10(9)/L 07/02/2025 10:08 PM CDT DTL Neutrophils 5.49 1.56 - 6.45 x10(9)/L 07/02/2025 10:08 PM CDT DHPM Lymphocytes 1.01 0.95 - 3.07 x10(9)/L 07/02/2025 10:08 PM CDT DTL Monocytes 0.38 0.26 - 0.81 x10(9)/L 07/02/2025 10:08 PM CDT DTL Eosinophils <0.03 0.03 - 0.48 x10(9)/L 07/02/2025 10:08 PM CDT DTL Basophils <0.03 0.01 - 0.08 x10(9)/L 07/02/2025 10:08 PM CDT DTL Blood (Blood, Venous) 07/02/2025 9:40 PM CDT 07/02/2025 9:59 PM CDT Satnam Ochoa APRN.N.P., D.N.P., M.S. N. LAB BLOOD ADD-ON Final Result [facility] [address] [place] [address], [facility] DTL [facility] [address] [place] [address] [facility] [address] [place] [address] * (ABNORMAL) GGT (Gamma-Glutamyltransferase) (07/02/2025 9:39 PM CDT) Gamma Glutamyltransferase (GGT), S 41(H) 5 - 36 U/L 07/02/2025 10:27 PM CDT DTL Blood (Blood, Venous) 07/02/2025 9:39 PM CDT 07/02/2025 9:59 PM CDT Satnam Ochoa APRN.N.P., D.N.P., M.S. N. LAB BLOOD ADD-ON Final Result Performing Organization Address City/[facility]/ZIP Co de Phone Number [facility] [address] [place] [address], [facility] [address] [place] [address] * CMV DNA Detect / Quant, Plasma (07/02/2025 9:39 PM CDT) Pathologist [facility] CMV DNA Detect/Quant, P Undetected Undetected IU/mL 07/04/2025 2:33 PM CDT [facility] Comment: Result in log IU/mL is Undetected. ----ADDITIONAL INFORMATION---- The quantification range of this assay is 35 to 10,000,000 IU/mL (1.54 log to 7.00 log IU/mL). Testing was performed using the lucrecia CMV test ([employer] Blood (Blood, Venous) 07/02/2025 9:39 PM CDT 07/03/2025 8:15 AM CDT Jamari Ochoa APRNNDustin, DeniseNKatalinaP., M.S.N. LAB MICROBIOLOGY - BLOOD ORDERABLES Final Result Performing Organization Address [facility] Co de Phone Number [facility] [address] [place] [address] [facility] [address] [place] [address] [place] [address] * Lipase (07/02/2025 9:39 PM CDT) Pathologist [facility] Lipase, S 13 13 - 60 U/L 07/02/2025 10:27 PM CDT DT Blood (Blood, Venous) 07/02/2025 9:39 PM CDT 07/02/2025 9:59 PM CDT Jamari Ochoa APRNN.Delbert, Heaven.N.P., M.S. N. LAB BLOOD ADD-ON Final Result Performing Organization Address City/[facility]/ZIP Co de Phone Number [facility] [address] [place], [place] [address] 200 [place] [address] * Amylase, Total (07/02/2025 9:39 PM CDT) [facility] Amylase, Total, S 28 28 - 100 U/L 07/02/2025 10:27 PM CDT DTL Blood (Blood, Venous) 07/02/2025 9:39 PM CDT 07/02/2025 9:59 PM CDT Carlee Armas APRN, Satnam.N.P., D.N.P., M.S. N. LAB BLOOD ADD-ON Final Result [facility] [address] [place], [place] [id number] [place] [address] 200 [place] [address] * Magnesium (07/02/2025 9:39 PM CDT) [facility] Magnesium, S 2.0 1.7 - 2.3 mg/dL 07/02/2025 10:27 PM CDT DT Blood (Blood, Venous) 07/02/2025 9:39 PM CDT 07/02/2025 9:59 PM CDT Carlee Armas APRN, C.N.P., D.N.P., M.S. N. LAB BLOOD ADD-ON Final Result [facility] [address] [place], [place] [id number] [place] [address] * (ABNORMAL) Lactate for Sepsis with Reflex (07/02/2025 9:39 PM CDT) [facility] Lactate, P 2.3(H) 0.5 - 2.2 mmol/L 07/02/2025 10:23 PM CDT DTL Blood (Blood, Venous) 07/02/2025 9:39 PM CDT 07/02/2025 9:59 PM CDT Satnam Ochoa APRN.NKatalinaPKatalina, D.N.P., M.S. N. LAB BLOOD NON ADD-ON Final Result [facility] [address] [place] [address], [facility] DTL [facility] [address] [place] [address] * (ABNORMAL) Comprehensive Metabolic Panel (07/02/2025 9:39 PM CDT) Pathologist [facility] Potassium, S 4.3 3.6 - 5.2 mmol/L 07/02/2025 10:27 PM CDT DTL Sodium, S 137 135 - 145 mmol/L 07/02/2025 10:27 PM CDT DTL Chloride, S 103 98 - 107 mmol/L 07/02/2025 10:27 PM CDT DTL Bicarbonate, S 21(L) 22 - 29 mmol/L 07/02/2025 10:27 PM CDT DTL Anion Gap 13 7 - 15 07/02/2025 10:27 PM CDT DTL BUN (Blood Urea Nitrogen), S 14 6 - 21 mg/dL 07/02/2025 10:27 PM CDT DTL Creatinine 0.75 0.59 - 1.04 mg/dL 07/02/2025 10:27 PM CDT DTL Estimated GFR (eGFR) >90 >=60 mL/min/BS A 07/02/2025 10:27 PM CDT DTL Comment: Estimated GFR calculated using the 2020 CKD_EPI creatinine equation. Calcium, Total, S 9.5 8.6 - 10.0 mg/dL 07/02/2025 10:27 PM CDT DTL Glucose, S 169(H) 70 - 140 mg/dL 07/02/2025 10:27 PM CDT DTL Protein, Total, S 7.0 6.3 - 7.9 g/dL 07/02/2025 10:27 PM CDT DTL Albumin, S 4.3 3.5 - 5.0 g/dL 07/02/2025 10:27 PM CDT DTL Aspartate Aminotransferase (AST), S 25 8 - 43 U/L 07/02/2025 10:27 PM CDT DTL Alkaline Phosphatase, S 98 35 - 104 U/L 07/02/2025 10:27 PM CDT DTL Alanine Aminotransferase (ALT), S 40 7 - 45 U/L 07/02/2025 10:27 PM CDT DTL Bilirubin, Total, S <0.2 0.0 - 1.2 mg/dL 07/02/2025 10:27 PM CDT DTL Blood (Blood, Venous) 07/02/2025 9:39 PM CDT 07/02/2025 9:59 PM CDT Satnam Ochoa APRN.N.P., Heaven.N.P., M.S. N. LAB BLOOD ADD-ON Final Result [facility] 200 [place] [address], [facility] 200 [place] [address] * (ABNORMAL) Dipstick, Urine (07/02/2025 9:29 PM CDT) Hemoglobin, QL, U Negative Negative 07/02/2025 9:39 PM CDT DTL Leukocyte Esterase, U Negative Negative 07/02/2025 9:39 PM CDT DTL Nitrite, U Negative Negative 07/02/2025 9:39 PM CDT DTL Ketone, U 5(A) Negative mg/dL 07/02/2025 9:39 PM CDT DTL Glucose, U 300(A) Negative mg/dL 07/02/2025 9:39 PM CDT DTL Urine 07/02/2025 9:29 PM CDT 07/02/2025 9:29 PM CDT Carlee Armas APRN C.N.P., D.N.P., M.S. N. LAB URINE ORDERABLES Final Result Performing Organization Address City/[facility]/ZIP Co de Phone Number [facility] [address] [place] [address] * Osmolality, Urine (07/02/2025 9:29 PM CDT) Osmolality, U 912 150 - 1150 mOsm/kg 07/02/2025 9:52 PM CDT DT Urine 07/02/2025 9:29 PM CDT 07/02/2025 9:29 PM CDT Satnam Ochoa APRN.N.P., Heaven.N.P., M.S. N. LAB URINE ORDERABLES Final Result Performing Organization Address [facility] Co de Phone Number [facility] [address] [place] [address] * pH, Random, Urine (07/02/2025 9:29 PM CDT) pH, Random, U 5.9 4.5 - 8.0 07/02/2025 9:52 PM CDT DT Urine 07/02/2025 9:29 PM CDT 07/02/2025 9:29 PM CDT Satnam Ochoa APRN.N.P., Heaven.N.P., M.S. N. LAB URINE ORDERABLES Final Result Performing Organization Address City/[facility] Co de Phone Number [facility] 200 [place] [address], [facility] 200 [place] [address] * Microscopic Manual (07/02/2025 9:29 PM CDT) Microscopy Normal 07/02/2025 10:11 PM CDT DTL RBC <3 <3 /hpf 07/02/2025 10:11 PM CDT DTL WBC 4-10 /hpf 07/02/2025 10:11 PM CDT DTL Comment: ----REFERENCE VALUE---- <4 (Males) <11 (Females) Squamous Epithelial Cells, U 4-10 /hpf 07/02/2025 10:11 PM CDT DTL Urine 07/02/2025 9:29 PM CDT 07/02/2025 9:29 PM CDT Jamari Ochoa APRNNDustin, Heaven.N.P., M.S. N. LAB URINE ORDERABLES Final Result Performing Organization Address City/[facility] Co de Phone Number [facility] [address] [place] [address] * Bacterial Culture, Aerobic + Susceptibility, Urine (07/02/2025 9:29 PM CDT) Pathologist [facility] Urine Culture Urogenital microbiota, susceptibilities not performed per laboratory criteria. 07/04/2025 6:50 AM CDT DTL Urine (Urine, Midstream) 07/02/2025 9:29 PM CDT 07/02/2025 9:39 PM CDT Comment:Specimen Source Site : Urine Satnam Ochoa APRN.N.PKatalina, Heaven.N.P., M.S.N. LAB MICROBIOLOGY - GENERAL ORDERABLES Final Result Performing Organization Address City/[facility]/ZIP Co de Phone Number [facility] [address] [place] [address] * Urinalysis, with Microscopic: Urine, Midstream (07/02/2025 9:29 PM CDT) Source Urine, Urine, Midstream 07/02/2025 9:29 PM CDT DTL Color, U Yellow 07/02/2025 9:29 PM CDT DTL Clarity, U Clear 07/02/2025 9:29 PM CDT DTL Protein, U 13 <26 mg/dL 07/02/2025 10:15 PM CDT DTL Protein/Osmol ality 0.14 <0.42 ratio 07/02/2025 10:15 PM CDT DTL Predicted 24 HR Protein, U 114 <229 mg/24 h 07/02/2025 10:15 PM CDT DTL Predicted Range 28-462 mg/24 h 07/02/2025 10:15 PM CDT DTL Comment Micro done on <5 mL 07/02/2025 10:08 PM CDT DTL Urine (Urine, Midstream) 07/02/2025 9:29 PM CDT 07/02/2025 9:29 PM CDT Carlee Armas APRN, C.N.P., D.N.P., M.S. N. LAB URINE ORDERABLES Final Result [facility] 200 [place] [address], [facility] 200 [place] [address] * ECG 12 Lead (07/02/2025 9:20 PM CDT) Ventricular Rate ECG/Min 91 BPM MUSE IA Interval 176 ms MUSE QRSD Interval 74 ms MUSE QT Interval 346 ms MUSE QTC Interval 425 ms MUSE P Crandall 61 degrees MUSE R Crandall -5 degrees MUSE T Wave Crandall 31 degrees MUSE 07/02/2025 9:20 PM CDT 07/02/2025 9:23 PM CDT Impressions MUSE - 07/02/2025 9:23 PM CDT Normal sinus rhythm Normal ECG When compared with ECG of 07-Jun-2025 12:15, No significant change was found Reviewed by LEONEL Chavez Narrative Procedure Note Rigo Escobar M.D. - 07/02/2025 IMPRESSION: Normal sinus rhythm Normal ECG When compared with ECG of 07-Jun-2025 12:15, No significant change was found Reviewed by LEONEL Chavez Carlee Dean Pawel BRANTLEY C.N.P., D.N.P., M.S. N. ECG ORDERABLES Final Result MUSE NA documented in this encounter Visit Diagnoses Diagnosis Pain Left Lower Quadrant- Primary documented in this encounter Admitting Diagnoses Diagnosis Pain Left Lower Quadrant documented in this encounter Administered Medications Inactive Administered Medications - up to 3 most recent administrations Medication Order MAR Action Action Date Dose Rate Site acyclovir tablet 400 mg (Zovirax) 400 mg, oral, 2 times daily, First dose (after last modification) on Sun07/02/25 at 2200, Drug Monitoring Program: Pharmacist to adjust medication dosing based on indication and drug clearance factors., Indications: Prophylaxis, medicalIndications:Prophylaxis, medical Given 07/06/2025 8:41 AM CDT 400 mg Given 07/05/2025 8:20 PM CDT 400 mg Given 07/05/2025 8:47 AM CDT 400 mg alteplase 1 mg/mL injection 2 mg (Cathflo Activase) 2 mg, intra-catheter, As needed, Per catheter lumen. May repeat x1 dose in 2 hours, Starting on Sun07/02/25 at 2048, Maximum dose is 4 mg per catheter [...] 4 hours PRN, indigestion, dyspepsia, Starting on Sun07/02/25 at 2048 ARIPiprazole tablet 10 mg (Abilify) 10 mg, oral, Every 24 hours, First dose (after last modification) on Sun07/03/25 at 1700 Given 07/05/2025 5:12 PM CDT 10 mg Given 07/04/2025 5:17 PM CDT 10 mg Given 07/03/2025 4:52 PM CDT [address] tablet 10 mg (Dulcolax) 10 mg, oral, Once, On 07/04/25 at 1130, For 1 dose, Swallow whole. Do NOT crush, chew, or split tablet. Given 07/04/2025 12:25 PM CDT [address] tablet 10 mg (Dulcolax) 10 mg, oral, Once, On 07/04/25 at 1300, For 1 dose, Swallow whole. Do NOT crush, chew, or split tablet. Given 07/04/2025 1:53 PM CDT 10 mg buprenorphine 5 mcg/hour 1 patch (Butrans) 1 patch, transdermal, Administer over 7 Days, Weekly, First dose (after last modification) on Sun07/03/25 at 1630, Indications: Chronic Pain/Nonacute PainIndications:Chronic Pain/Nonacute Pain Medication Applied 07/03/2025 8:47 PM CDT 1 patch Other calcium carbonate chewable tablet 200 mg of calcium (Tums) 200 mg of calcium, oral, Daily PRN, heartburn, indigestion, Starting on Sun07/02/25 at 2047, Doses listed are in mg of elemental calcium. Take with food. 500 mg calcium carbonate contains 200 mg of elemental calcium. cyclobenzaprine tablet 5 mg (FlexeriL) 5 mg, oral, 2 times daily PRN, muscle spasms, Starting on Sun07/02/25 at 2047 Given 07/05/2025 2:31 AM CDT 5 mg Given 07/03/2025 4:30 AM CDT 5 mg diphenhydrAMINE injection 25 mg (BenadryL) 25 mg, intravenous, As needed, itching, mild medication or blood product reaction (itching, restlessness, fidgeting, temperature elevation less than 1 degree from pre-transfusion or mild chilling), Starting on Sun07/02/25 at 2047, For 2 doses, If ineffective, may repeat once after [address] capsule 120 mg (Cymbalta) 120 mg, oral, Every 24 hours, First dose (after last modification) on Sun07/03/25 at 1400, See tube feeding guidelines for tube feeding administration instructions. Given 07/05/2025 1:51 PM CDT 120 mg Given 07/04/2025 1:54 PM CDT 120 mg Given 07/03/2025 2:47 PM CDT 120 mg enoxaparin injection 40 mg (Lovenox) 40 mg, subcutaneous, Daily, First dose on Sun07/03/25 at 0900, HOLD for platelets less than 20K granisetron (PF) injection 1 mg (KytriL) 1 mg, intravenous, Daily, First dose on Sun07/03/25 at 0900 Given 07/03/2025 8:56 AM CDT 1 mg HYDROmorphone tablet 3 mg (Dilaudid) 3 mg, oral, Every 4 hours PRN, severe pain or score 7-10 of 10, Starting on [place] 07/05/25 at 0941, Does patient have renal impairment, frailty, or advanced age (avoid morphine) and unable to take oxycodone? No, Did the patient fail other oral opioids during hospitalization? Yes, Does the patient have documented allergies to oxycodone and/or morphine? Yes, Is the patient on hydromorphone chronically for pain? Yes HYDROmorphone tablet 4 mg (Dilaudid) 4 mg, oral, Every 3 hours PRN, severe pain or score 7-10 of 10, Starting on [facility] 07/02/25 at 2222, Does patient have renal impairment, frailty, or advanced age (avoid morphine) and unable to take oxycodone? No, Did the patient fail other oral opioids during hospitalization? Yes, Does the patient have documented allergies to oxycodone and/or morphine? Yes, Is the patient on hydromorphone chronically for pain? Yes Given 07/04/2025 8:09 AM CDT 4 mg Given 07/04/2025 2:39 AM CDT 4 mg Given 07/03/2025 8:47 PM CDT 4 mg HYDROmorphone tablet 4 mg (Dilaudid) 4 mg, oral, Every 4 hours PRN, severe pain or score 7-10 of 10, Starting on [facility] 07/04/25 at 1122, Does patient have renal impairment, frailty, or advanced age (avoid morphine) and unable to take oxycodone? No, Did the patient fail other oral opioids during hospitalization? Yes, Does the patient have documented allergies to oxycodone and/or morphine? Yes, Is the patient on hydromorphone chronically for pain? Yes Given 07/04/2025 6:07 PM CDT 4 mg hydrOXYzine tablet 25 mg (Atarax) 25 mg, oral, Every 6 hours PRN, anxiety, Starting on [facility] 07/02/25 at 2048 Given 07/04/2025 11:35 PM CDT 25 mg hyoscyamine tablet 125 mcg (Levsin) 125 mcg, oral, Every 4 hours PRN, bladder spasms, Starting on Sun07/05/25 at 0940 Given 07/05/2025 6:42 PM CDT 125 mcg Given 07/05/2025 11:52 AM CDT 125 mcg hyoscyamine tablet 125 mcg (Levsin) 125 mcg, oral, Every 3 hours PRN, bladder spasms, Starting on Sun07/05/25 at 2033 Given 07/06/2025 12:03 PM CDT 125 mcg Given 07/06/2025 12:14 AM CDT 125 mcg ibuprofen tablet 400 mg 400 mg, oral, Every 6 hours PRN, moderate pain or score 4-6 of 10, Starting on [facility] 07/02/25 at 2048, Take with food or milk if GI disturbances occur with use. Given 07/03/2025 2:12 AM CDT 400 mg Lactated Ringer's bolus 1,000 mL 1,000 mL, intravenous, at 500 mL/hr, Administer over 2 Hours, Once, On [facility] 07/02/25 at 2245, For 1 dose New Bag 07/02/2025 10:44 PM CDT 1,000 mL 500 mL/hr lactulose solution 10 g 10 g, oral, Daily, First dose on Sun07/04/25 at 1800 Given 07/05/2025 8:46 AM CDT 10 g Given 07/04/2025 6:07 PM CDT 10 g melatonin tablet 5 mg 5 mg, oral, Daily at bedtime, First dose on Sun07/03/25 at 2100 Given 07/05/2025 8:20 PM CDT 5 mg Given 07/04/2025 8:54 PM CDT 5 mg Given 07/03/2025 8:47 PM CDT 5 mg morphine injection 4 mg 4 mg, intravenous, Once, On [facility] 07/02/25 at 2200, For 1 dose Given 07/02/2025 9:42 PM CDT 4 mg NaCl 0.9 % bolus 1,000 mL 1,000 mL, intravenous, at 500 mL/hr, Administer over 2 Hours, Once, On [facility] 07/02/25 at 2245, For 1 dose New Bag 07/02/2025 10:44 PM CDT 1,000 mL 500 mL/hr nystatin suspension 500,000 Units (Mycostatin) 500,000 Units, swish & swallow, 4 times daily, First dose on Sun07/03/25 at 0800, For 3 days, Indications: Head, neck, and ENT infectionIndications:Head, neck, and ENT infection Given 07/04/2025 8:54 PM CDT 500,000 Units Given 07/04/2025 5:17 PM CDT 500,000 Units Given 07/04/2025 12:25 PM CDT 500,000 Units OLANZapine tablet 2.5 mg (ZyPREXA) 2.5 mg, oral, 4 times daily PRN, nausea, Starting on Sun07/03/25 at 1607 Given 07/05/2025 5:02 AM CDT 2.5 mg Given 07/03/2025 11:59 PM CDT 2.5 mg OLANZapine tablet 5 mg (ZyPREXA) 5 mg, oral, Daily at bedtime, First dose on Sun07/03/25 at 2100 Given 07/05/2025 8:20 PM CDT 5 mg Given 07/04/2025 8:54 PM CDT 5 mg Given 07/03/2025 8:47 PM CDT 5 mg OLANZapine tablet 5 mg (ZyPREXA) 5 mg, oral, Once as needed, Trouble sleeping, Starting on Sun07/06/25 at 0050, For 1 dose Given 07/06/2025 12:56 AM CDT 5 mg ondansetron (PF) injection 4 mg (Zofran) 4 mg, intravenous, Once, On Sun07/04/25 at 2100, For 1 dose Given 07/04/2025 8:47 PM CDT 4 mg ondansetron (PF) injection 8 mg (Zofran) 8 mg, intravenous, Once, On [facility] 07/02/25 at 2200, For 1 dose Given 07/03/2025 5:04 AM CDT [address] tablet 40 mg (Protonix) 40 mg, oral, 2 times daily before morning and evening meals, First dose (after last modification) on [facility] 07/02/25 at 2200, Swallow whole. Do NOT crush, chew, or split tablet. Given 07/06/2025 7:03 AM CDT 40 mg Given 07/05/2025 5:12 PM CDT 40 mg Given 07/05/2025 8:47 AM CDT 40 mg penicillin V potassium tablet 500 mg (Veetids) 500 mg, oral, 2 times daily, First dose on Sun07/03/25 at 0900, Drug Monitoring Program: Pharmacist to adjust medication dosing based on indication and drug clearance factors., Indications: Prophylaxis, medicalIndications:Prophylaxis, medical Given 07/06/2025 8:41 AM CDT 500 mg Given 07/05/2025 8:22 PM CDT 500 mg Given 07/05/2025 8:46 AM CDT 500 mg polyethylene glycol powder packet 17 g (Miralax) 17 g, oral, Daily PRN, constipation, Starting on Sun07/03/25 at 1005, Dissolve in 240 mLs (8 ounces) of water prior to giving. Avoid mixing with starch-based thickened liquids. Given 07/03/2025 1:01 PM CDT 17 g polyethylene glycol powder packet 17 g (Miralax) 17 g, oral, Daily, First dose (after last modification) on 07/04/25 at 0900, Dissolve in 240 mLs (8 ounces) of water prior to giving. Avoid mixing with starch-based thickened liquids. Given 07/06/2025 8:41 AM CDT 17 g Given 07/05/2025 8:46 AM CDT 17 g Given 07/04/2025 9:11 AM CDT 17 g polyethylene glycol powder packet 17 g (Miralax) 17 g, oral, Once, On 07/04/25 at 1800, For 1 dose, Dissolve in 240 mLs (8 ounces) of water prior to giving. Avoid mixing with starch-based thickened liquids. Given 07/04/2025 6:07 PM CDT [address] tablet 300 mg (NoxafiL) 300 mg, oral, Daily, First dose on Sun07/03/25 at 0900, Swallow whole. Do NOT crush, chew, or split tablet., Drug Monitoring Program: Pharmacist to adjust medication dosing based on indication and drug clearance factors., Indications: Prophylaxis, medicalIndications:Prophylaxis, medical Given 07/06/2025 8:41 AM CDT 300 mg Given 07/05/2025 8:46 AM CDT 300 mg Given 07/04/2025 9:11 AM CDT 300 mg predniSONE tablet 30 mg (Deltasone) 30 mg, oral, Daily, First dose (after last modification) on Sun07/06/25 at 0900 Given 07/06/2025 8:41 AM CDT 30 mg predniSONE tablet 40 mg (Deltasone) 40 mg, oral, Daily, First dose on Sun07/03/25 at 0900 Given 07/05/2025 8:47 AM CDT 40 mg Given 07/04/2025 9:11 AM CDT 40 mg Given 07/03/2025 8:57 AM CDT 40 mg prochlorperazine injection 10 mg (Compazine) 10 mg, intravenous, Every 6 hours PRN, nausea, Starting on [facility] 07/02/25 at 2048, First line for nausea. Use prochlorperazine before ondansetron or granisetron, before lorazepam. Given 07/02/2025 9:41 PM CDT 10 mg sennosides-docusate sodium 8.6-50 mg per tablet 2 tablet (Senokot-S) 2 tablet, oral, 2 times daily, First dose (after last modification) on Sun07/03/25 at 2100 Given 07/06/2025 8:41 AM CDT 2 tablets Given 07/05/2025 8:20 PM CDT 2 tablets Given 07/05/2025 8:46 AM CDT 2 tablets sulfamethoxazole-trimethoprim 400-80 mg per tablet 1 tablet (Bactrim) 1 tablet, oral, Daily, First dose on Sun07/03/25 at 0900, Drug Monitoring Program: Pharmacist to adjust medication dosing based on indication and drug clearance factors., Indications: Prophylaxis, medicalIndications:Prophylaxis, medical Given 07/06/2025 8:41 AM CDT 1 ta blet Given 07/05/2025 8:47 AM CDT 1 tablet Given 07/04/2025 9:12 AM CDT 1 tablet documented in this encounter Active and Recently Administered Medications Times are shown in CDT. Scheduled Medication Order 07/04/2025 07/05/2025 07/06/2025 acyclovir tablet 400 mg (Zovirax) 400 mg, oral, 2 times daily, First dose (after last modification) on [facility] 07/02/25 at 2200, Drug Monitoring Program: Pharmacist to adjust medication dosing based on indication and drug clearance factors., Indications: Prophylaxis, medical 911 (Given - Provider: Chelsie Estrada RFritz)2053 (Given - Provider: Elizabeth Matos R.N.) 0847 (Given - Provider: Angelina Moreira RKatalinaN.)2019 (Given - Provider: Elizabeth Matos R.N.) 0841 (Given - Provider: Chelsie Nielson RKatalinaN.) ARIPiprazole tablet 10 mg (Abilify) 10 mg, oral, Every 24 hours, First dose (after last modification) on Sun07/03/25 at 1700 1717 (Given - Provider: Sean Daley RKatalinaN.) 1712 (Given - Provider: Chelsie Nielson RKatalinaN.) bisacodyL DR tablet 10 mg (Dulcolax) (COMPLETED) 10 mg, oral, Once, On 07/04/25 at 1130, For 1 dose, Swallow whole. Do NOT crush, chew, or split tablet. 1225 (Given - Provider: Ashley Deleon RFritz) bisacodyL DR tablet 10 mg (Dulcolax) (COMPLETED) 10 mg, oral, Once, On 07/04/25 at 1300, For 1 dose, Swallow whole. Do NOT crush, chew, or split tablet. 1353 (Given - Provider: Ashley Deleon R.N.) buprenorphine 5 mcg/hour 1 patch (Butrans) 1 patch, transdermal, Administer over 7 Days, Weekly, First dose (after last modification) on Sun07/03/25 at 1630, Indications: Chronic Pain/Nonacute Pain 1256 (Due: Medicatio n Removed - Provider: Discharge Provider, Automatic - Comment: Time automatically adjusted from order being discontinued) DULoxetine DR capsule 120 mg (Cymbalta) 120 mg, oral, Every 24 hours, First dose (after last modification) on Sun07/03/25 at 1400, See tube feeding guidelines for tube feeding administration instructions. 1354 (Given - Provider: Ashley Deleon R.N.) 1351 (Given - Provider: Chelsie Nielson R.N.) enoxaparin injection 40 mg (Lovenox) 40 mg, subcutaneous, Daily, First dose on Sun07/03/25 at 0900, HOLD for platelets less than 20K 0911 (Not Given - Provider: Chelsie Estrada R.N. - Reason: Patient/family refused) 0847 (Not Given - Provider: Angelina Moreira R.N. - Reason: Patient/family refused) 0841 (Not Given - Provider: Chelsie Nielson R.N. - Reason: Patient/family refused) lactulose solution 10 g (CANCELED) 10 g, oral, Daily, First dose on Sun07/04/25 at 1800 1807 (Given - Provider: Angelina Moreira R.N.) 0846 (Given - Provider: Angelina Moreira R.N.) melatonin tablet 5 mg 5 mg, oral, Daily at bedtime, First dose on Sun07/03/25 at 2100 2053 (Given - Provider: Elizabeth Matos RFritz) 2020 (Given - Provider: Elizabeth Matos R.N.) nystatin suspension 500,000 Units (Mycostatin) () 500,000 Units, swish & swallow, 4 times daily, First dose on Sun07/03/25 at 0800, For 3 days, Indications: Head, neck, and ENT infection 0911 (Given - Provider: Chelsie Estrada R.N.)1225 (Given - Provider: Ashley Deleon R.N.)1717 (Given - Provider: Sean Daley RKatalinaNKatalina)2053 (Given - Provider: Elizabeth Matos R.N.) OLANZapine tablet 5 mg (ZyPREXA) 5 mg, oral, Daily at bedtime, First dose on Sun07/03/25 at 2100 2054 (Given - Provider: Elizabeth Matos R.N.) 2019 (Given - Provider: Elizabeth Matos R.N.) ondansetron (PF) injection 4 mg (Zofran) (COMPLETED) 4 mg, intravenous, Once, On 07/04/25 at 2100, For 1 dose 2046 (Given - Provider: Elizabeth Matos R.N.) pantoprazole DR tablet 40 mg (Protonix) 40 mg, oral, 2 times daily before morning and evening meals, First dose (after last modification) on [facility] 07/02/25 at 2200, Swallow whole. Do NOT crush, chew, or split tablet. 0600 (Given - Provider: Romina Salazra R.N.)171 (Given - Provider: Sean Daley R.N.) 0847 (Given - Provider: Angelina Moreira R.N.)1711 (Given - Provider: Chelsie Nielson R.N.) 07 (Given - Provider: Romina Salazar R.N.) penicillin V potassium tablet 500 mg (Veetids) 500 mg, oral, 2 times daily, First dose on Sun07/03/25 at 0900, Drug Monitoring Program: Pharmacist to adjust medication dosing based on indication and drug clearance factors., Indications: Prophylaxis, medical 910 (Given - Provider: Chelsie Estrada R.N.)2053 (Given - Provider: Elizabeth Matos R.N.) 0846 (Given - Provider: Angelina Moreira R.N.)2021 (Given - Provider: Elizabeth Matos R.N.) 08 (Given - Provider: Chelsie Nielson R.N.) polyethylene glycol powder packet 17 g (Miralax) 17 g, oral, Daily, First dose (after last modification) on 07/04/25 at 0900, Dissolve in 240 mLs (8 ounces) of water prior to giving. Avoid mixing with starch-based thickened liquids. 09 (Given - Provider: Chelsie Estrada R.N.) 0846 (Given - Provider: Angelina Moreira R.N.) 0841 (Given - Provider: Chelsie Nielson RKatalinaNKatalina) polyethylene glycol powder packet 17 g (Miralax) (COMPLETED) 17 g, oral, Once, On Sun07/04/25 at 1800, For 1 dose, Dissolve in 240 mLs (8 ounces) of water prior to giving. Avoid mixing with starch-based thickened liquids. 1807 (Given - Provider: Angelina Moreira R.N.) posaconazole DR tablet 300 mg (NoxafiL) 300 mg, oral, Daily, First dose on Sun07/03/25 at 0900, Swallow whole. Do NOT crush, chew, or split tablet., Drug Monitoring Program: Pharmacist to adjust medication dosing based on indication and drug clearance factors., Indications: Prophylaxis, medical 910 (Given - Provider: Chelsie Estrada R.N.) 0846 (Given - Provider: Angelina Moreira R.N.) 0841 (Given - Provider: Vickie AlvaN.) predniSONE tablet 30 mg (Deltasone) 30 mg, oral, Daily, First dose (after last modification) on Sun07/06/25 at 0900 0841 (Given - Provider: Chelsie Nielson RKatalinaN.) predniSONE tablet 40 mg (Deltasone) (CANCELED) 40 mg, oral, Daily, First dose on Sun07/03/25 at 0900 0911 (Given - Provider: Chelsie Estrada R.N.) 0847 (Given - Provider: Angelina Moreira R.N.) sennosides-docusate sodium 8.6-50 mg per tablet 2 tablet (Senokot-S) 2 tablet, oral, 2 times daily, First dose (after last modification) on Sun07/03/25 at 2100 0912 (Given - Provider: Chelsie Estrada R.N.)2053 (Given - Provider: Elizabeth Matos R.N.) 0846 (Given - Provider: Vickie RodNKatalina)2019 (Given - Provider: Elizabeth Matos R.N.) 0841 (Given - Provider: Chelsie Nielson R.N.) sulfamethoxazole-trimeth oprim 400-80 mg per tablet 1 tablet (Bactrim) 1 tablet, oral, Daily, First dose on Sun07/03/25 at 0900, Drug Monitoring Program: Pharmacist to adjust medication dosing based on indication and drug clearance factors., Indications: Prophylaxis, medical 911 (Given - Provider: Chelsie Estrada RFritz) 0847 (Given - Provider: Vickie RodNKatalina) 0841 (Given - Provider: Chelsie Nielson R.N.) PRN Medication Order 07/04/2025 07/05/2025 07/06/2025 alteplase 1 mg/mL injection 2 mg (Cathflo Activase) 2 mg, intra-catheter, As needed, Per catheter lumen. May repeat x1 dose in 2 hours, Starting on Sun07/02/25 at 2047, Maximum dose is 4 mg per catheter [...] 4 hours PRN, indigestion, dyspepsia, Starting on Sun07/02/25 at 2047 calcium carbonate chewable tablet 200 mg of calcium (Tums) 200 mg of calcium, oral, Daily PRN, heartburn, indigestion, Starting on Sun07/02/25 at 2047, Doses listed are in mg of elemental calcium. Take with food. 500 mg calcium carbonate contains 200 mg of elemental calcium. cyclobenzaprine tablet 5 mg (FlexeriL) 5 mg, oral, 2 times daily PRN, muscle spasms, Starting on Sun07/02/25 at 2047 0231 (Given - Provider: Milana Nuñez R.N.) diphenhydrAMINE capsule 25 mg (BenadryL) 25 mg, oral, Every 6 hours PRN, itching, Starting on Sun07/02/25 at 2047 diphenhydrAMINE injection 25 mg (BenadryL) 25 mg, intravenous, As needed, itching, mild medication or blood product reaction (itching, restlessness, fidgeting, temperature elevation less than 1 degree from pre-transfusion or mild chilling), Starting on [facility] 07/02/25 at 2048, For 2 doses, If ineffective, may repeat once after 15 minutes HYDROmorphone tablet 3 mg (Dilaudid) 3 mg, oral, Every 4 hours PRN, severe pain or score 7-10 of 10, Starting on [place] 07/05/25 at 0941, Does patient have renal impairment, frailty, or advanced age (avoid morphine) and unable to take oxycodone? No, Did the patient fail other oral opioids during hospitalization? Yes, Does the patient have documented allergies to oxycodone and/or morphine? Yes, Is the patient on hydromorphone chronically for pain? Yes HYDROmorphone tablet 4 mg (Dilaudid) (CANCELED) 4 mg, oral, Every 3 hours PRN, severe pain or score 7-10 of 10, Starting on [facility] 07/02/25 at 2222, Does patient have renal impairment, frailty, or advanced age (avoid morphine) and unable to take oxycodone? No, Did the patient fail other oral opioids during hospitalization? Yes, Does the patient have documented allergies to oxycodone and/or morphine? Yes, Is the patient on hydromorphone chronically for pain? Yes 0239 (Given - Provider: Romina Salazar R.N.)0809 (Given - Provider: Angelina Moreira RKatalinaNKatalina) HYDROmorphone tablet 4 mg (Dilaudid) (CANCELED) 4 mg, oral, Every 4 hours PRN, severe pain or score 7-10 of 10, Starting on [facility] 07/04/25 at 1122, Does patient have renal impairment, frailty, or advanced age (avoid morphine) and unable to take oxycodone? No, Did the patient fail other oral opioids during hospitalization? Yes, Does the patient have documented allergies to oxycodone and/or morphine? Yes, Is the patient on hydromorphone chronically for pain? Yes 0503 (Given - Provider: Angelina Moreira R.N.) hydrOXYzine tablet 25 mg (Atarax) 25 mg, oral, Every 6 hours PRN, anxiety, Starting on [facility] 07/02/25 at 2048 2335 (Given - Provider: Milana Nuñez RKatalinaNKatalina) hyoscyamine tablet 125 mcg (Levsin) (CANCELED) 125 mcg, oral, Every 4 hours PRN, bladder spasms, Starting on 07/05/25 at 0940 1152 (Given - Provider: Chelsie Nielson RKatalinaN.)1842 (Given - Provider: Chelsie Nielson RKatalinaNKatalina) hyoscyamine tablet 125 mcg (Levsin) 125 mcg, oral, Every 3 hours PRN, bladder spasms, Starting on 07/05/25 at 2033 0014 (Given - Provider: Brian Gonzalez RKatalinaN.)1203 (Given - Provider: Chelsie Nielson RKatalinaN.) OLANZapine tablet 2.5 mg (ZyPREXA) 2.5 mg, oral, 4 times daily PRN, nausea, Starting on 07/03/25 at 1607 0502 (Given - Provider: Milana Nuñez RKatalinaNKatalina) OLANZapine tablet 5 mg (ZyPREXA) (COMPLETED) 5 mg, oral, Once as needed, Trouble sleeping, Starting on 07/06/25 at 0050, For 1 dose 0056 (Given - Provider: Vickie CappsNKatalina) documented in this encounter Additional Health Concerns Infection Onset Date Last Indicated Resolved Time Protective Environment 03/02/2023 03/02/2023 Assessment Noted Time PHQ-9 Depression Total Score: 2 12/10/19 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 [address] [place] [address] [place] [id number] PCP - General Family Medicine 04/25/23 documented as of this encounter
--- OUTSIDE RECORDS SUMMARY | 2025-07-11 09:45 | XMS_ITS | Encounter Summary ---
Author Organization [facility] Address [address] [place] [address] Care Team Providers Care Director Foundation Name Role Phone Renzo Andres M.D. Primary Care Provider Reason for Referral * Specialty Diagnoses / Procedures Referred By Estefania acosta Referred To Contact [facility] [address] [place] [address] Phone: tel: [facility] Referral ID Status Reason Start Date Expiration Date Visits Re quested Visits Authorized Scheduling Instructions [id number] Encounter Details Date Type Department Care Team (Latest Contact Info) Description 07/11/2025 9:45 AM CDT - 07/11/2025 11:59 PM CDT Hospital Encounter [facility], [facility], Ninth Floor [address] [place] [phone] Jessica Rousseau M.B.B.S. [address] [place] [address] Lucy Stout R.N., BMT-CN, O.C.N. Leukemia Myeloid Chronic BCR/ABL [...] things needed for daily living? No 07/02/2025 [facility] Utilities Answer Date Recorded In the past 12 months has e electric, gas, oil, or water company threatened to shut off services in your home? No 07/02/2025 Depression Answer Date Recor ded PHQ-9 Total Score (max 27) 12 07/08 Housing Stability Answer Date Recorded What is your living situation today? I have a [facility] place to live 07/02/2025 Education Answer Date Recorded What is the highest level of school you have completed or the highest degree you have received? Some college, no degree 04/24/2019 Comments No Sex and Gender Information Value Date Recorded Sex Assigned at Female 12/26/2018 8:37 PM [employer] Legal Sex Female 2:43 PM [employer] Gender Identity Female 12/26/2018 8:37 PM [employer] Sexual Orientation Choose not to disclose 2020 3:46 PM CDT documented as of this encounter Last Filed Vital Signs Vital Sign Reading Time Taken Comments Blood Pressure 122/86 07/11/2025 10:10 AM CDT Pulse 126 07/11/2025 11:02 AM CDT ranged from 122-130 Temperature 36.9 C (98.4 F) 07/11/2025 10:07 AM CDT Respiratory Rate 18 07/11/2025 10:0 7 AM CDT Oxygen Saturation 97% 07/11/2025 10: 10 AM CDT Inhaled Oxygen Concentration - - Weight 106 kg (232 lb 12.9 oz) 07/11/2025 10:07 AM CDT Height - - Body Mass Index 35.4 06/30/2025 7:34 PM CDT documented in this [...] Remission (HCC),Transplant Bone Marrow Allogeneic ([facility]) Take 1 tablet (500 mg total) by mouth 2 (two) times a day. 60 tablet 11 04/29/2025 predniSONE (Deltasone) 10 mg tablet Take [...] as of this encounter Progress Notes * Felix Chavez M.D. - 07/11/2025 9:45 AM CDT SUBJECTIVE TRANSPLANT PHYSICIAN Dr. Jessica Rousseau, pager [phone]. 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 She presents to the clinic today for evaluation persistent abdominal pain, nausea and diarrhea. HISTORY OF PRESENT ILLNESS Please refer to multiple prior notes in EMR for complete hematologic history: Ms. Martinez is a 35 y.o. 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 At the time of diagnosis, there was grade 3 reticulin fibrosis noted. The cytogenetics identified a [place] chromosome in 20 metaphases. The BCR-ABL1 P [...] t(9;22) metaphases. 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 06/17/2024: feeling quite symptomatic since the [...] Access Camargo CVC placed on 12/03/24 by [facility]. Social Work Seen and cleared [...] 600 mg two times daily. 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 Admitted 07/02/25 to 07/06/25 for management of persistent abdominal pain, nausea and vomiting, and chills. Previous CT abd/pelvis angiogram enterography on 06/30/2025 was unremarkable. Amylase and lipase noted to be WNL. Blood cultures done on admission negative. Treated with dilaudid (in addition to Buprenorphine patch). Seen by Palliative care. Nausea was managed with Olanzapine. Narcotic medication resulted in constipation, requiring enema. Seen by GI and recommendation is for Psych GI consult. Started on Levsin on 07/05 with significant improvement in pain and nausea. Discharged on Dilaudidand prednisone. INTERVAL HISTORY Ms Radha Martinez comes to the clinic today for further evaluation of abdominal pain, nausea and diarrhea. She was recently admitted from 07/02 through 07/06/2025 for management of similarsymptoms. She had extensive evaluation done and it was unrevealing. She informs me that she had more than 10 bowel movements over the last 12 hours. This is associated with abdominal pain. She informs me she was initially having benefit from the levsin, but over the last 2 day no any improvement. Stools are loose and no blood. No fever or chills. She does admit minimal lightheadedness. For the nausea she did take a dose of Zofran yesterday. She has not taking her Dilaudid this morning. She also has not used any Imodium. No any skin rash. REVIEW OF SYSTEMS A 10-point review of systems is negative, except as noted above. Current Medications[1] Active Home Medications Medication Sig Taking acyclovir (Zovirax) 400 mg tablet Take 1 tablet (400 mg total) by mouth 2 (two) times a day. Yes alum-mag hydroxide-simeth (Maalox) 200-200-20 mg/5 mL suspension Take 30 mL by mouth every 4 (four)hours as needed for indigestion (dyspepsia). Yes buprenorphine (Butrans) 5 mcg/hour Place 1 patch on the skin once a week Indication: Chronic Pain/Nonacute Pain. Yes HYDROmorphone (Dilaudid) 1 mg/mL liquid Take 2 mL (2 mg total) by mouth every 6 (six) hours as needed for pain Indication: Chronic Pain/Nonacute Pain. Patient taking differently: Take 2 mg by mouth every 6 (six) hours as needed for pain Indication: Chronic Pain/Nonacute Pain. Patient taking 4 mg every 6 hours Yes hyoscyamine (Levsin) 0.125 mg tablet Take 1 tablet (0.125 mg total) by mouth every 4 (four) hours as needed for bladder spasms. For abdominal pain/cramping/spasm Yes ARIPiprazole (Abilify) 10 mg tablet Take 1 tablet (10 mg total) by mouth daily. Dose change 12/02/2024 cholecalciferol (Vitamin D3) 50 mcg (2,000 Unit) tablet Take 50 mcg by mouth daily. DULoxetine (Cymbalta) [address] capsule Take 2 capsules (120 mg total) by mouth daily. melatonin 5 mg tablet Take 5 mg by mouth at bedtime. naloxone (Narcan) 4 mg/actuation nasal spray Administer 1 spray (4 mg total) into nostril(s) once for 1 dose. Use 1 spray in 1 nostril. Repeat with second device in other nostril after 2-3 minutes ifno or minimal response. Patient not taking: Reported on 06/30/2025 OLANZapine (ZyPREXA) 2.5 mg tablet Take 1 tablet (2.5 mg total) by mouth 4 (four) times a day as needed (nausea). OLANZapine (ZyPREXA) 5 mg tablet Take 1 tablet (5 mg total) by mouth at bedtime. ondansetron ODT (Zofran-ODT) [...] tablets (300 mg total) by mouth daily. predniSONE (Deltasone) 10 mg tablet Take 1 tablet (10 mg total) by mouth as directed. Take 3 tablets 07/06-07/12, 2 tablets 07/13-07/19, 1 tablet 07/20-07/26, 1/2 tab 07/27 -08/02 and then stop prochlorperazine (Compazine) 10 mg tablet Take 1 tablet (10 mg total) by mouth every 6 (six) hours as needed for nausea. sennosides-docusate sodium (Senokot-S) 8.6-50 mg per tablet Take 1 tablet by mouth 2 (two) times a day. sulfamethoxazole-trimethoprim (Bactrim) 400-80 mg per tablet Take 1 tablet by mouth daily. OBJECTIVE VITAL SIGNS Weight: 106 kg, BMI (Calculated): 35 kg/m??, Blood Pressure: 122/86, Pulse Rate: (!) 136, Resp Rate: 18, Temperature: 36.9 ??C, SpO2: 97 % Admission Weight: 106 kg PHYSICAL EXAM General: Nontoxic female in no acute distress. Seated comfortably in hospital bed during time of physical exam. Eyes: Anicteric sclera, EOMI, PERRLA. Right eye esotropia. Mouth: Oral mucosa moist, without noted ulceration or lesions. Heart: Mild tachycardia and Regular rhythm. S1, S2. No murmur. Lungs: Clear to auscultation bilaterally with non [...] extremity edema or bilateral calf tenderness. Neuro: Nonfocal with appropriate speech and affect Mental: Alert and oriented to person, place, time, and situation KPS 80% DIAGNOSTIC FINDINGS No results found for this or any previous visit (from the past 24 hours). ASSESSMENT / PLAN Plan for today: Stool sample for testing IV Kytril PO Dilaudid PO Maalox # Diffuse Abdominal Pain, worse to LLQ [...] started on Levsin with improvement in symptoms - She did not bring her Dilaudid, and we will give her dose of Dilaudid p.o. 4 mg in the clinic today. - Scheduled for outpatient [facility] consult on 07/16/2025. - Palliative Medicine outpatient follow-up scheduled for 07/14/25. # Nausea/Vomiting - She will receive a dose of IV Kytril in the clinic today. - She can continue to use Zofran and olanzapine. # Diarrhea - She had a bowel movement in the clinic that was formed # Tachycardia This is most probably due to anxiety. We will repeat vitals prior to discharge from the clinic. # Management of narcotic associated constipation with Stool [place] on CT - Per GI and Palliative care, started [...] somatization process. Trial Atarax PRN for anxiety. - Scheduled for psychiatry follow-up on 07/15/25 # Right eye strabismus # Potential left retina tear, stable - Right eye strabismus present since . Has only peripheral vision in right eye. Wears glasses. - Followed by [facility] in [place], [place]. - Patient will notify team if any vision changes. # Blood Products # TACO - Requires infusion of platelets at a slower rate. # CMV- last checked 07/06/25 pending # EBV - last checked 07/06/25 negative # Disposition Pt will follow-up with outpatient schedule. - Dr Rousseau in 2-3 weeks - GI and psych [1] Current Medications Medication Dose Frequency Last Rate Last Admin alum-mag hydroxide-simeth 200-200-20 mg/5 mL suspension 30 mL (Maalox) 30 mL Q4H PRN 30 mL at 07/11/25 1042 HYDROmorphone liquid 4 mg (Dilaudid) 4 mg Once * Lucy Stout R.N., DANNI, O.C.N. - 07/11/2025 9:45 AM CDT Reason for patient visit: Triage follow-up due to multiple calls to [facility] and [facility] on Sunday, July 10 Symptoms reported to service: Generalized pain, nausea, diarrhea, abdominal tenderness Orders provided by service: PO Kytril, Maalox, instructed patient to take home supply of PO hydromorphone suspension, stool sample for visual inspection Additional notes: Patient was able to produce one medium sized [place] stool chart type 4 stool. Patient forgot to bring her home supply of dilaudid and said that she could go without taking it. RN team gave patient toilet hats to take home with the instruction to monitor her stools only if they become watery and to report if she is having more than 1.5 liters of diarrhea in 24 hours without using stool softeners, eating foods that increase bowel movements like dried fruits, or drinking increased fruit juice or using prune juice. Follow-up: Return to [facility] on 07/16 for BMT follow up and follow up with GI. Addendum: Patient left toilet hats in hospital room. documented in this encounter Plan of Treatment Upcoming Encounters Date Type Department Care Team (Late st Contact Info) Description 07/21/2025 11:00 AM CDT Telemedicine Department of Palliative Care in [place], [place] [address] [place] [phone] Meghan Osorio M.D. [address] [place] [phone] 07/22/2025 8:40 AM CDT Lab Department of Laboratory Medicine and Pathology, [facility], in [place], [place] [address] [place] [phone] Becky Hernandez APRN C.N.P., D.N.P. [address] [place] [phone] 07/22/2025 9:30 AM CDT Office Visit Pedro sanchez [facility] for Transplantation and Clinical Regeneration in [place], [place] [address] [place] [phone] Becky Hernandez APRN C.N.P., D.N.P. [address] [place] [phone] 07/30/2025 2:00 PM CDT Appointment Division of Gastroenterology in [place], [place] [address] [place] [phone] Derrick Cruz Jr., M.D., M.S. [address] [place] [phone] 08/11/2025 9:00 AM CDT Nurse Only Section of Infectious Diseases in [place], [place] [address] [place] [phone] Jessica Rousseau M.B.B.S. [address] [place] [phone] 08/11/2025 1:00 PM CDT Clinical Support Department of Palliative Care in [place], [place] [address] [place] [phone] Uma Aly APRN, JamariNLuigi., M.S.N. [address] [place] [phone] 08/13/2025 10:00 AM CDT Lab Department of Laboratory Medicine and Pathology, [facility], in [place], [place] [address] [place] [address] Jessica Rousseau M.B.B.S. [address] [place] [phone] 08/13/2025 10:30 AM CDT [facility] in [place], [place] [address] [place] [address] Jessiac Rousseau M.B.B.S. [address] [place] [phone] 08/13/2025 11:00 AM CDT Nurse Only [facility] in [place], [place] [address] [place] [address] Jessica Rousseau M.B.B.S. [address] [place] [phone] 08/13/2025 11:30 AM CDT [facility] in [place], [place] [address] [place] [phone] Jessica Rousseau M.B.B.S. [address] [place] [phone] 09/25/2025 10:30 AM [employer] Telemedicine [facility] in [place], [place] [address] [place] [address] Jessica Rousseau M.B.B.S. [address] [place] [address] Scheduled Referrals Name Type Priority Associated Diagnoses Order Schedule Hydration Infusion Therapy; Outpatient Referral Routine Once for 1 Occurrences starting 07/11/2025 until 07/11/2025 documented as of this encounter Visit Diagnoses Diagnosis Leukemia Myeloid Chronic BCR/ABL Positive Remission (HCC)- Primary Transplant Bone Marrow Allogeneic (HCC) documented in this encounter Administered Medications Inactive Administered Medications - up to 3 most recent administrations Medication Order MAR Action Action Date Dose Rate Site alum-mag hydroxide-simeth 200-200-20 mg/5 mL suspension 30 mL (Maalox) 30 mL, oral, Every 4 hours PRN, indigestion, dyspepsia, Starting on 07/11/25 at 1034, For 1 day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),Transplant Bone Marrow Allogeneic (HCC) Given 07/11/2025 10:42 AM CDT 30 mL granisetron tablet 1 mg (KytriL) 1 mg, oral, Once as needed, nausea, vomiting, if unrelieved by prochlorperazine and lorazepam., Starting on 07/11/25 at 1027, For 1 dose, Once daily PRN. Oral route preferred.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),Transplant Bone Marrow Allogeneic (HCC) Given 07/11/2025 10:34 AM CDT 1 mg HYDROmorphone liquid 4 mg (Dilaudid) 4 mg, oral, Once, On 07/11/25 at 1115, For 1 dose, Does patient have renal impairment, frailty, or advanced age (avoid morphine) and unable to take oxycodone? No, Did the patient fail other oral opioids during hospitalization? Yes, Does the patient have documented allergies to oxycodone and/or morphine? No, Is the patient on hydromorphone chronically for pain? Yes Given 07/11/2025 11:10 AM CDT 4 mg documented in this encounter Additional Health Concerns Infection Onset Date Last Indicated Resolved Time Protective Environment 03/02/2023 03/02/2023 Assessment Noted Time PHQ-9 Depression Total Score: 12 025 9:42 AM CDT documented as of this encounter Care Teams Director Foundation Relationship Specialty Start Date End Date Renzo Andres M.D. [address] [place] [phone] PCP - General Family Medicine 04/25/23 documented as of this encounter
--- OUTSIDE RECORDS SUMMARY | 2025-07-14 08:00 | XMS_ITS | Encounter Summary ---
Author Organization [facility] Address [address] [place] [address] Care Team Providers Care Home Help Aide Name Role Phone Renzo Andres M.D. Primary Care Provider [phone] Reason for Referral * Outpatient (Routine) - Authorized Specialty Diagnoses / Procedures Referred By Estefania acosta Referred To Contact Palliative Medicine Meghan Osorio M.D. [address] [place] [phone] Phone: tel: fax: [facility] Referral ID Status Reason Start Date Expiration Date V isits Requested Visits Authorized [id number] Authorized 07/14/2025 01/13/2027 1 1 Scheduling Instructions Benja Magdaleno video 07/21 at 11am Reason for Visit * Outpatient (Routine) - Closed Specialty Diagnoses / Procedures Referred By Contheidy t Referred To Contact Palliative Medicine Felicia Watt APRN, C.N.P., M.S.N. [address] [place] [phone] Phone: tel: fax: [facility] Referral ID Status Reason Start Date Expiration Date Visits Re quested Visits Authorized [id number] Closed 05/25/2025 11/24/2026 1 1 Encounter Details Date Type Department Care Team (Late st Contact Info) Description 07/14/2025 8:00 AM CDT Telemedicine Department of Palliative Care in [place], [place] 200 [place] [address] Monica Tolbert M.D., M.S. 200 [place] [phone] Meghan Osorio M.D. 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 No 07/02/2025 [facility] Utilities Answer Date Recorded In the past 12 months has th e electric, gas, oil, or water company threatened to shut off services in your home? No 07/02/2025 Depression Answer Date Recor ded PHQ-9 Total Score (max 27) 12 07/08 Housing Stability Answer Date Recorded What is your living situation today? I have a [facility] place to live 07/02/2025 Education Answer Date Recorded What is the highest level of school you have completed or the highest degree you have received? Some college, no degree 04/24/2019 Comments No Sex and Gender Information Value Date Recorded Sex Assigned at Female 12/26/2018 8:37 PM NEUROSURGERY RESEARCH DIRECTOR Legal Sex Female 2:43 PM NEUROSURGERY RESEARCH DIRECTOR Gender Identity Female 12/26/2018 8:37 PM NEUROSURGERY RESEARCH DIRECTOR Sexual Orientation Choose not to disclose 2020 3:46 PM CDT documented as of this encounter Progress Notes * Meghan Osorio M.D. - 07/14/2025 8:00 AM CDT [facility] Outpatient Palliative Care Progress Note Patient: Radha Martinez; 35 y.o.female LOCATION Palliative Care Clinic SUBJECTIVE Radha Martinez is a 35 y.o. 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 established patient visit Visit conducted via virtual visit. The following person/people were also present during the discussion: None Medical Record review was conducted prior to the virtual visit. Date of last in-person clinic visit: The patient verbally consented to an audio recording of their visit to assist with the completion of documentation. 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 She was started on Butrans patch and continued on prn hydromorphone and gabapentin. Since her last visit, she was hospitalized twice from 06/24- and 07/02- due to abdominal pain, nausea, vomiting. She underwent extensive workup and was ruled out for infections, porphyria, angioedema, and vasculitis; GVHD evaluation was indeterminate but she is currently on prednisone burst that istapering. On 1st admission she was found to have gastritis and gastric ulcer, but this was felt to not fully explain symptoms. Noted to have significant stool burden, so constipation could be contributor. GI consult also felt there was likely components of dysregulation in her gut micro biome and sensory system. She will follow-up with GI later this week 07/16 Inpatient palliative care consult service was engaged during both of her admissions. For chronic cancer-related leg pain she was continued on buprenorphine 5 mcg/hour, and she used hydromorphone 2 mgq.6 hours PRN for abdominal pain with goal to minimize use (per primary team). For nausea she was started on olanzapine 5 mg HS with additional 2.5 mg available PRN, in addition to her primary compazine and Zofran. History of Present Illness Radha shares that things have been difficult over the last few weeks related to the above symptomsand her hospitalization. She is still feeling somewhat poorly and almost wishes she could still be in the hospital, but knows that they would not be doing anything differently there and it is better to be at home. Grateful for support of her boyfriend, mom, other family members, and her animals (dogs Chapito and Ajay, and cat Anastacia). Pain: Has 2 distinct pain syndromes currently. Chronic cancer related bilateral leg pain is still well controlled on Butrans patch at 5 mcg/hour. She does not think any changes are needed. Left lower abdominal pain is a different pain continues to be significant, somewhat recalcitrant tothe therapies she has trialed including ongoing scheduled use of hyoscyamine (Levsin) and intermittent p.o. Dilaudid. She feels the p.o. Dilaudid does not really help so she has trying to use it minimally, but will typically take a 4 mg dose in the evening before bed. Has not noted any change in pain character or severity related to bowel movements or food intake. She looks forward to her GI appointment on 07/16 for next steps. Nausea: Typically up and down from day today, but feels it is reasonably controlled on current regimen. Right now she is taking olanzapine 5 mg HS that was started during her hospitalization, in addition to Compazine 10 mg b.i.d. typically in the morning and at night each day. She does have prn ondansetron available but takes that rarely, is not sure that it is effective. When discussing side effects, she does endorse a sensation of severe restlessness and inability to sit still yesterday that was new for her. Constipation: Currently taking Senokot-S 1 tab b.i.d. but has not been able to establish a regular bowel pattern,we will have a few bowel movements in 1 day and then go maybe 2 days with none. The following portions of the patient's history were reviewed and updated as appropriate: Allergies, Current Medications, Medical History, Surgical History, Family History, and Social History Additionally, if completed, NCCN Distress Thermometer Reviewed as relevant to current encounter. 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 Leg pain due to chemo induced peripheral neuropathy is stable on current regimen of Butrans 5 mcg/hours, duloxetine 120 mg daily (also for mood/depression). Previously was on gabapentin but self discontinued. We will continue current regimen as she feels this is reasonably well controlled. Complex multifactorial abdominal pain will be further evaluated at Gastroenterology visit this 07/16, we will defer to their team and her primary BMT/heme for additional workup and medical management. It sounds like they are in the process of more definitively ruling out GVHD and assessing for other etiologies. We are in agreement of trying to minimize short-acting PRN opioids for the abdominal pain, as it seems this is not very opioid responsive and opioid side effects may contribute further to symptoms currently hydromorphone is being prescribed by her Hematology team. Feels her nausea control has been okay on current regimen, though days are up and down. On review of potential side effects, she does endorse restlessness (like whole-body restless leg) yesterday that could be consistent with akathisia due to concurrent use of olanzapine 5 mg HS and Compazine 10 mg b.i.d.. Today I recommend decreasing her nighttime olanzapine to 2.5 mg (she is unsure on how helpful this has been anyway) and monitor for any recurrence of symptoms. If akathisia occurs again, would recommend discontinuing olanzapine altogether and/or could consider trial of decreasing Compazine to 5 mg rather than 10 mg. Unfortunately ondansetron has not been as helpful Recommendations Assessment & Plan Chemotherapy induced peripheral neuropathy Neuropathic pain Chronic leg pain well-controlled with buprenorphine patch. - Continue buprenorphine (Butrans) patch 5 mcg per hour, refill provided today - Continue duloxetine 120 mg daily - Previous trials of gabapentin and Lyrica not been successful Nausea Possible akathisia side effects Intermittent nausea managed with Compazine and Zyprexa. Mild morning nausea. Potential akathisia from Compazine and Zyprexa combination. - Reduce Zyprexa to 2.5 mg at night and monitor for ongoing akathisia. Contact clinic if akathisia symptoms persist after dose reduction, would then advise discontinuing olanzapine - Continue Compazine 10 mg in the morning and at supper. Consider trialing lower dose 5 mg if side effects - Use Zofran as needed for additional nausea control. Constipation Irregular bowel movements likely due to opioid use. Current regimen includes Senokot twice daily. - Continue Senokot 1 tablet twice daily for now until she can discuss further at GI appointment on 07/16 Complex Abdominal Pain - Defer to Gastroenterology and primary Hematology/BMT team. She will have formal GI consultation as an outpatient in 2 days on 07/08 - Hydromorphone currently being prescribed and managed by primary BMT/Hematology Follow-up Follow-up required to assess response to medication adjustments and review gastroenterology consultation findings. - Schedule video check-in in one week to assess response to reduced Zyprexa dose and overall symptom management. Opioid Summary Opioid Need: This patient has a condition that necessitates treatment with an opioid for longer than 7 days. Additionally, a non-opioid alternative was not appropriate or inadequate to manage patient???s pain. We have reviewed risks, benefits and alternatives related to opioid prescribing as well as relevant mitigation strategies. 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 Opioid Toxicity Review: We have reviewed the risks of opioid therapy and completed an assessment oftoxicities. Opioid Aberrant Use Concerns: None Opioid Risk Score: Last Opioid Risk Tool charting Flowsheet Row Comprehensive Visit from 04/21/2025 in Department of Palliative Care in [place], [place] ORT Total Score (max 26) 2 [...] I have outlined. Follow up visit: provider 1 week, virtual visit Total time spent was 45 minutes. Lisa Magdaleno M.D. documented in this encounter Plan of Treatment Upcoming Encounters Date Type Department Care Team (Late st Contact Info) Description 07/21/2025 11:00 AM CDT Telemedicine Department of Palliative Care in [place], [place] [address] [place] [phone] Meghan Osorio M.D. [address] [place] [phone] 07/22/2025 8:40 AM CDT Lab Department of Laboratory Medicine and Pathology, [facility], in [place], [place] [address] [place] [phone] Becky Hernandez APRN, C.N.P., D.N.P. [address] [place] [phone] 07/22/2025 9:30 AM CDT [facility] [place], [place] [address] [place] [phone] Becky Hernandez APRN, Satnam.N.P., D.N.P. [address] [place] [phone] 07/30/2025 2:00 PM CDT Appointment Division of Gastroenterology in [place], [place] [address] [place] [phone] Derrick Cruz Jr., M.D., M.S. [address] [place] [phone] 08/11/2025 9:00 AM CDT Nurse Only Section of Infectious Diseases in [place], [place] [address] [place] [phone] Jessica Rousseau M.B.B.S. [address] [place] [phone] 08/11/2025 1:00 PM CDT Clinical Support Department of Palliative Care in [place], [place] [address] [place] [phone] Uma Aly APRN, C.NLuigi., M.S.N. [address] [place] [phone] 08/13/2025 10:00 AM CDT Lab Department of Laboratory Medicine and Pathology, [facility], in [place], [place] [address] [place] [address] Jessica Rousseau M.B.B.S. [address] [place] [phone] 08/13/2025 10:30 AM CDT Office Visit Pedro Fat[facility] in [place], [place] [address] [place] [phone] Jessica Rousseau M.B.B.S. [address] [place] [phone] 08/13/2025 11:00 AM CDT Nurse Only [facility] in [place], [place] [address] [place] [phone] Jessica Rousseau M.B.B.S. [address] [place] [phone] 08/13/2025 11:30 AM CDT Office Visit [facility] Transplantation [facility] Clinical Regeneration in [place], [place] [address] [place] [phone] Jessica Rousseau M.B.B.S. [address] [place] [phone] 09/25/2025 10:30 AM NEUROSURGERY RESEARCH DIRECTOR Telemedicine [facility] Trans[facility] Clinical [facility]eneration in [place], [place] [address] [place] [phone] Jessica Rousseau M.B.B.S. 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 [address] [place] [address] [place] [phone] PCP - General Family Medicine 04/25/23 documented as of this encounter
--- OUTSIDE RECORDS SUMMARY | 2025-07-16 08:00 | XMS_ITS | Encounter Summary ---
Author Organization [facility] Address [address] [place] [address] Care Team Providers Care Product Operations Associate Name Role Phone Renzo Andres M.D. Primary Care Provider [phone] Reason for Visit * Outpatient (Routine) - Closed Specialty Diagnoses / Procedures Referred By Estefania t Referred To Contact Pharmacy Jessica Rousseau M.B.B.S. [address] [place] [phone] Phone: tel: fax: [facility] Referral ID Status Reason Start Date Expiration Date Visits Re quested Visits Authorized [id number] Closed 07/02/2025 01/01/2027 1 1 Encounter Details Date Type Department Care Team (Latest Contact Info) Description 07/16/2025 8:00 AM CDT [facility] in [place], [place] [address] [place] [address] [phone] Jessica Rousseau M.B.B.S. [address] [place] [phone] Nelli Parker, Pharm.D., R.Ph. [address] [place] [phone] Leukemia Myeloid Chronic BCR/ABL Positive Remission [...] things needed for daily living? No 07/02/2025 [facility] Utilities Answer Date Recorded In the past 12 months has [facility] electric, gas, oil, or water company threatened to shut off services in your home? No 07/02/2025 Depression Answer Date Recor ded PHQ-9 Total Score (max 27) 12 07/08 Housing Stability Answer Date Recorded What is your living situation today? I have a [facility] place to live 07/02/2025 Education Answer Date Recorded What is the highest level of school you have completed or the highest degree you have received? Some college, no degree 04/24/2019 Comments No Sex and Gender Information Value Date Recorded Sex Assigned at Female 12/26/2018 8:37 PM HAM PASSER Legal Sex Female 2:43 PM HAM PASSER Gender Identity Female 12/26/2018 8:37 PM HAM PASSER Sexual Orientation Choose not to disclose 2020 [...] 07/16/2025 8:00 AM CDT Medication Management Services ([facility]) SUBJECTIVE Radha Martinez is a 35 y.o. female, who is seen by the [facility] Pharmacist for targeted medication review. She was [...] Camargo; Surgeon: Brianna Hernandez M.D., Ph.D.; Location: [facility] [7] Patient Active Problem List Diagnosis [...] CDT Telemedicine Department of Palliative Care in [place], [place] [address] [place] [phone] Meghan Osorio M.D. [address] [place] [phone] 07/22/2025 8:40 AM CDT Lab Department of Laboratory Medicine and Pathology, [facility], in [place], [place] [address] [place] [phone] Becky Hernandez APRN, C.N.P., D.N.P. [address] [place] [phone] 07/22/2025 9:30 AM CDT Office Visit [facility] for [facility] Clinical Regeneration in [place], [place] [address] [place] [phone] Becky Hernandez APRN, C.N.P., D.N.P. [address] [place] [phone] 07/30/2025 2:00 PM CDT Appointment Division of Gastroenterology in [place], [place] [address] [place] [phone] Derrick Cruz Jr., M.D., M.S. [address] [place] [phone] 08/11/2025 9:00 AM CDT Nurse Only Section of Infectious Diseases in [place], [place] [address] [place] [phone] Jessica Rousseau M.B.B.S. [address] [place] [phone] 08/11/2025 1:00 PM CDT Clinical Support Department of Palliative Care in [place], [place] [address] [place] [phone] Uma Aly APRN, JamariNLuigi., M.S.N. [address] [place] [phone] 08/13/2025 10:00 AM CDT Lab Department of Laboratory Medicine and Pathology, [facility], in [place], [place] [address] [place] [phone] Jessica Rousseau M.B.B.S. [address] [place] [phone] 08/13/2025 10:30 AM CDT Office Visit Pedro [facility] in [place], [place] [address] [place] [phone] Jessica Rousseau M.B.B.S. [address] [place] [phone] 08/13/2025 11:00 AM CDT Nurse Only [facility] in [place], [place] [address] [place] [phone] Jessica Rousseau M.B.B.S. [address] [place] [phone] 08/13/2025 11:30 AM CDT [facility] in [place], [place] [address] [place] [phone] Jessica Rousseau M.B.B.S. [address] [place] [phone] 09/25/2025 10:30 AM H[employer]ER [facility]icine [facility] in [place], [place] [address] [place] [phone] Jessica Rousseau M.B.B.S. [address] [place] [phone] documented as of this encounter Goals Goal Patient Goal Type Associated Problems Recent Progress Patient-Stated? Author [facility] Care Plan for Colonoscopy Routine Prep Care Plan [facility] Care Plan for Colonoscopy Routine Prep No Derrick Cruz Jr., M.D., M.S. 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 [address] [place] [address] [phone] PCP - General Family Medicine 04/25/23 documented as of this encounter
--- OUTSIDE RECORDS SUMMARY | 2025-07-16 08:30 | XMS_ITS | Encounter Summary ---
Author Organization [facility] Address [address] [place] [address] Care Team Providers Care Firesetter Name Role Phone Renzo Adnres M.D. Primary Care Provider [phone] Reason for Referral * Transplant (Routine) - Authorized Specialty Diagnoses / Procedures Referred By Estefania t Referred To Contact Transplant Becky Hernandez APRN, C.N.PKatalina, D.N.P. [address] [place] [phone] Phone: tel: fax: [facility] Referral ID Status Reason Start Date Expiration Date V isits Requested Visits Authorized [id number] Authorized 07/16/2025 01/15/2027 1 1 Scheduling Instructions Please schedule with ANUPAM for 60 minutes. Patient type: Allo Over 100 Visit Type: Return Scheduling Preferences Option 1: ANUPAM only Option 2: ANUPAM/RN joint visit Other Scheduling Instructions: Schedule 07/22-07/24 depending on ANUPAM availability Primary MD: Dr Rousseau RN Team: Rst Bmt Team Two [place] Reason for Visit * Reason Comments Nurse Visit * Transplant (Routine) - Closed Specialty Diagnoses / Procedures Referred By Contac t Referred To Contact Transplant Jessica Rousseau M.B.B.S. [address] [place] [address] Phone: tel: fax: [facility] Referral ID Status Reason Start Date Expiration Date Visits Re quested Visits Authorized [id number] Closed 07/02/2025 01/01/2027 1 1 Encounter Details Date Type Department Care Team (Latest Contact Info) Description 07/16/2025 8:30 AM CDT Office Visit Pedro sanchez [facility] for Transplantation and Clinical Regeneration in [place], [place] [address] [place] [phone] Jessica Rousseau M.B.B.S. [address] [place] [phone] Becky Hernandez, KARON, C.N.P., D.N.P. [address] [place] [phone] Lida Olivas, R.NKatalina Leukemia Myeloid Chronic BCR/ABL [...] things needed for daily living? No 07/02/2025 [facility] Utilities Answer Date Recorded In the past 12 months has th e electric, gas, oil, or water company threatened to shut off services in your home? No 07/02/2025 Depression Answer Date Recor ded PHQ-9 Total Score (max 27) 12 07/08 Housing Stability Answer Date Recorded What is your living situation today? I have a [facility] place to live 07/02/2025 Education Answer Date Recorded What is the highest level of school you have completed or the highest degree you have received? Some college, no degree 04/24/2019 Comments No Sex and Gender Information Value Date Recorded Sex Assigned at Female 12/26/2018 8:37 PM QUALITY CONTROL SCIENTIST Legal Sex Female 2:43 PM QUALITY CONTROL SCIENTIST Gender Identity Female 12/26/2018 8:37 PM QUALITY CONTROL SCIENTIST Sexual Orientation Choose not to disclose 2020 3:46 PM CDT documented as of this encounter Progress Notes * Becky Hernandez, KARON, C.N.P., D.N.P. - 07/16/2025 8:30 AM CDT SUBJECTIVE TRANSPLANT PHYSICIAN Dr. Jessica Rousseau, pager [phone]. CHIEF COMPLAINT Ms. 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 The BCR-ABL1 P [...] t(9;22) metaphases. 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 06/17/2024: feeling quite symptomatic since the [...] CVC placed on 12/03/24 by [facility]. Social Work Seen and cleared [...] prophylaxis: Ursodiol 600 mg two times daily. [facility] ID Number: [id number] [...] Management of narcotic associated constipation with Stool Esparto on CT - Per GI and Palliative [...] 33 - Continue to check RT PCR [id number] on peripheral blood every 6 weeks, most [...] right eye. Wears glasses. - Followed by [facility] in [place], [place]. - Patient will notify team if [...] today in conjunction with Becky Hernandez APRN, ASSOCIATE PROFESSOR OF GEOGRAPHY, DNP. Please see their note for a [...] CDT Telemedicine Department of Palliative Care in [place], [place] [address] [place] [phone] Meghan Osorio M.D. [address] [place] [phone] 07/22/2025 8:40 AM CDT Lab Department of Laboratory Medicine and Pathology, [facility], in [place], [place] [address] [place] [phone] Becky Hernandez APRN C.N.P., D.N.P. [address] [place] [phone] 07/22/2025 9:30 AM CDT Office Visit Pedro sanchez [facility] for Transplantation and Clinical Regeneration in [place], [place] [address] [place] [phone] Becky Hernandez APRN C.N.P., D.N.P. [address] [place] [phone] 07/30/2025 2:00 PM CDT Appointment Division of Gastroenterology in [place], [place] [address] [place] [phone] Derrick Cruz Jr., M.D., M.S. [address] [place] [phone] 08/11/2025 9:00 AM CDT Nurse Only Section of Infectious Diseases in [place], [place] [address] [place] [phone] Jessica Rousseau M.B.B.S. [address] [place] [phone] 08/11/2025 1:00 PM CDT Clinical Support Department of Palliative Care in [place], [place] [address] [place] [phone] Uma Aly APRN, C.N.P., M.S.N. [address] [place] [phone] 08/13/2025 10:00 AM CDT Lab Department of Laboratory Medicine and Pathology, [facility] in [place], [place] [address] [place] [phone] Jessica Rousseau M.B.B.S. [address] [place] [phone] 08/13/2025 10:30 AM CDT [facility] in [place], [place] [address] [place] [phone] Jessica Rousseau M.B.B.S. [address] [place] [phone] 08/13/2025 11:00 AM CDT Nurse Only [facility] in [place], [place] [address] [place] [address] Jessica Rousseau M.B.B.S. [address] [place] [phone] 08/13/2025 11:30 AM CDT [facility] in [place], [place] [address] [place] [address] Jessica Rousseau M.B.B.S. [address] [place] [address] 09/25/2025 10:30 AM QUALITY CONTROL SCIENTIST Telemedicine Pedro Nazario [facility] for Transplantation and Clinical [facility] in [place], [place] [address] [place] [phone] Jessica Rousseau M.B.B.S. 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) Transplant Stem Cell (HCC) Expected: 07/22/2025 (Approximate), Expires: 10/16/2026 AST (Aspartate Aminotransferase) Lab Routine 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) Transplant Stem Cell (HCC) Expected: 07/22/2025 (Approximate), Expires: 10/16/2026 Bilirubin, Total Lab Routine 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) Transplant Stem Cell (HCC) Expected: 07/22/2025 (Approximate), Expires: 10/16/2026 BUN (Blood Urea Nitrogen) Lab Routine 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) Transplant Stem Cell (HCC) Expected: 07/22/2025 (Approximate), Expires: 10/16/2026 Calcium, Total Lab Routine Leukemia Myeloid Chronic BCR/ABL Positive Not Having Achieved Remission (HCC) Transplant Stem Cell (HCC) Expected: 07/22/2025 (Approximate), Expires: 10/16/2026 CBC no call back, reflex T/S HGB <8 Lab Routine 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) Transplant Stem Cell (HCC) Expected: 07/22/2025 (Approximate), Expires: 10/16/2026 Creatinine with Estimated GFR Lab Routine 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) Transplant Stem Cell (HCC) Expected: 07/22/2025 (Approximate), Expires: 10/16/2026 Glucose, Fasting Lab Routine 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) Transplant Stem Cell (HCC) Abnormal Finding Of Blood Chemistry Unspecified Expected: 07/22/2025 (Approximate), Expires: 10/16/2026 Magnesium Lab Routine 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) Transplant Stem Cell (HCC) Expected: 07/22/2025 (Approximate), Expires: 10/16/2026 Potassium Lab Routine 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) Transplant Stem Cell (HCC) Expected: 07/22/2025 (Approximate), Expires: 10/16/2026 Sodium Lab Routine 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) Transplant Stem Cell (HCC) Expected: 07/22/2025 (Approximate), Expires: 10/16/2026 LD (Lactate Dehydrogenase) Lab Routine Leukemia Myeloid Chronic BCR/ABL Positive Not Having Achieved Remission (HCC) Transplant Stem Cell (HCC) Expected: 07/22/2025 (Approximate), Expires: 10/16/2026 CMV DNA Detect / Quant, Plasma Microbiology Routine 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) Transplant Stem Cell (HCC) Expected: 07/22/2025 (Approximate), Expires: 10/16/2026 EBV DNA Detect/Quant Microbiology Routine 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 Author [facility] Care Plan for Colonoscopy Routine Prep Care Plan [facility] Care Plan for Colonoscopy Routine Prep No CruzDerrick Wood Jr., M.D., M.S. Autogenerated Goal Care Plan Autogenerated Problem No Sophie Galarza documented as of this encounter Visit Diagnoses Diagnosis Leukemia Myeloid Chronic BCR/ABL Positive Not Having Achieved Remission (HCC)- Primary Transplant Stem Cell (HCC) Abnormal Finding Of Blood Chemistry Unspecified documented in this encounter Additional Health Concerns Active Problems Noted Date Diagnosed Date [facility] Care Plan for Colonoscopy Routine Pr ep 07/16/2025 Autogenerated Problem 07/16/2025 Infection Onset Date Last Indicated Resolved Time Protective Environment 03/02/2023 03/02/2023 Assessment Noted Time PHQ-9 Depression Total Score: 12 025 9:42 AM CDT documented as of this encounter Care Teams Firesetter Relationship Specialty Start Date End Date Renzo Andres M.D. [address] [place] [phone] PCP - General Family Medicine 04/25/23 documented as of this encounter
--- OUTSIDE RECORDS SUMMARY | 2025-07-16 09:30 | XMS_ITS | Encounter Summary ---
Author Organization [facility] Address [address] [place] [address] Care Team Providers Care Overseer [employer] Name Role Phone Renzo Andres M.D. Primary Care Provider Encounter Details Date Type Department Care Team (Late st Contact Info) Description 07/16/2025 9:30 AM CDT [facility] in [place], [place] [address] [place] [phone] Ta Medrano Social History Tobacco Use Types [...] things needed for daily living? No 07/02/2025 [facility] Utilities Answer Date Recorded In the past 12 months has th e electric, gas, oil, or water company threatened to shut off services in your home? No 07/02/2025 Depression Answer Date Recor ded PHQ-9 Total Score (max 27) 12 07/08 Housing Stability Answer Date Recorded What is your living situation today? I have a [facility] place to live 07/02/2025 Education Answer Date Recorded What is the highest level of school you have completed or the highest degree you have received? Some college, no degree 04/24/2019 Comments No Sex and Gender Information Value Date Recorded Sex Assigned at Female 12/26/2018 8:37 PM P[employer]ER GRADER Legal Sex Female 2:43 PM PAPER GRADER Gender Identity Female 12/26/2018 8:37 PM PAPER GRADER Sexual Orientation Choose not to disclose [...] to the patient navigation teamwith any questions. [facility] [phone] documented in this encounter Plan of Treatment Upcoming Encounters Date Type Department Care Team (Late st Contact Info) Description 07/21/2025 11:00 AM CDT Telemedicine Department of Palliative Care in [place], [place] [address] [place] [phone] Meghan Osorio M.D. [address] [place] [phone] 07/22/2025 8:40 AM CDT Lab Department of Laboratory Medicine and Pathology, [facility], in [place], [place] [address] [place] [phone] Becky Hernandez APRN C.N.P., D.N.P. [address] [place] [phone] 07/22/2025 9:30 AM CDT Office Visit Pedro sanchez [facility] for Transplantation and Clinical Regeneration in [place], [place] [address] [place] [address] Becky Hernandez APRN, C.N.P., D.N.P. [address] [place] [phone] 07/30/2025 2:00 PM CDT Appointment Division of Gastroenterology in [place], [place] [address] [place] [phone] Derrick Cruz Jr., M.D., M.S. [address] [place] [phone] 08/11/2025 9:00 AM CDT Nurse Only Section of Infectious Diseases in [place], [place] [address] [place] [phone] Jessica Rousseau M.B.B.S. [address] [place] [phone] 08/11/2025 1:00 PM CDT Clinical Support Department of Palliative Care in [place], [place] [address] [place] [phone] Uma Aly APRN, C.N.P., M.S.N. [address] [place] [phone] 08/13/2025 10:00 AM CDT Lab Department of Laboratory Medicine and Pathology, [facility], in [place], [place] [address] [place] [phone] Jessica Rousseau M.B.B.S. [address] [place] [phone] 08/13/2025 10:30 AM CDT Office Visit Pedro sanchez [facility] for Transplantation and Clinical Regeneration in [place], [place] [address] [place] [phone] Jessica Rousseau M.B.B.S. [address] [place] [phone] 08/13/2025 11:00 AM CDT [facility] [place], [place] [address] [place] [phone] Jessica Rousseau M.B.B.S. [address] [place] [phone] 08/13/2025 11:30 AM CDT Office Visit Pedro Nazario [facility] for Transplantation and Clinical Regeneration in [place], [place] [address] [place] [phone] Jessica Rousseau M.B.B.S. [address] [place] [phone] 09/25/2025 10:30 AM PAPER GRADER Telemedicine [facility] in [place], [place] [address] [place] [address] Jessica Rousseau M.B.B.S. [address] [place] [phone] documented as of this encounter Goals Goal Patient Goal Type Associated Problems Recent Progress Patient-Stated? Author [facility] Care Plan for Colonoscopy Routine Prep Care Plan [facility] Care Plan for Colonoscopy Routine Prep No Derrick Cruz Jr., M.D., M.S. Autogenerated Goal Care Plan Autogenerated Problem No Sophie Galarza documented as of this encounter Visit Diagnoses Not on filedocumented in this encounter Additional Health Concerns Active Problems Noted Date Diagnosed Date [facility] Care Plan for Colonoscopy Routine Pr ep 07/16/2025 Autogenerated Problem 07/16/2025 Infection Onset Date Last Indicated Resolved Time Protective Environment 03/02/2023 03/02/2023 Assessment Noted Time PHQ-9 Depression Total Score: 12 025 9:42 AM CDT documented as of this encounter Care Teams Overseer [employer] Relationship Specialty Start Date End Date Renzo Andres M.D. [address] [place] [phone] PCP - General Family Medicine 04/25/23 documented as of this encounter
--- OUTSIDE RECORDS SUMMARY | 2025-07-16 09:40 | XMS_ITS | Encounter Summary ---
Author Organization [facility] Address [address] [place] [phone] Care Team Providers Care Network Planner Name Role Phone Renzo Andres M.D. Primary Care Provider [phone] Reason for Referral * Gastrointestinal (Routine) - Authorized Specialty Diagnoses / Procedures Referred By Contac t Referred To Contact Diagnoses Gastric Ulcer Unspecified As Acute Or Chronic Without Hemorrhage Or Perforation Procedures EGD (EsophagoGastroDuodenoscopy) Restricted Derrick Cruz Jr., M.D., M.S. 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 [address] [place] [address] Phone: tel: fax: [facility] Referral ID Status Reason Start Date Expiration Date V isits Requested Visits Authorized [id number] Authorized 07/16/2025 10/16/2026 1 1 Reason for Visit * Outpatient (Routine) - Closed Specialty Diagnoses / Procedures Referred By Contact Referred To Contact Gastroenterology and Hepatology Diagnoses Transplant Bone Marrow Allogeneic (HCC) Abdominal Pain Medication Management Issue Transplant Stem Cell (HCC) Bone Marrow Transplant Status (HCC) Jessica Avila APRN C.N.P., M.S.N. [address] [place] [phone] Phone: tel: fax: [facility] Referral ID Status Reason Start Date Expiration Date V isits Requested Visits Authorized [id number] Closed Specialty Services Required 07/06/2025 01/05/2027 1 1 Encounter Details Date Type Department Care Team (Latest Contact Info) Description 07/16/2025 9:40 AM CDT Comprehensive Visit Division of Gastroenterology in [place], [place] [address] [place] [phone] Jessica Avila APRN C.N.P., M.S.N. [address] [place] [phone] Derrick Cruz Jr., M.D., M.S. 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 Never true 07/02/20 Within the past 12 months, t he [...] things needed for daily living? 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 - 07/16/2025 9:40 AM CDT Consultative GI Clinic Note DATE: 07/16/2025 REFERRING PROVIDER: Jessica Avila APRN, * PRIMARY CARE PROVIDER: Primary Care Providers: Renzo Andres M.D. (General) [address] [facility] [phone] PATIENT NAME: Radha Martinez HOME ADDRESS:[address] [place] [phone] SUBJECTIVE Chief Complaint/Reason for Consult: chronic abdominal pain and irregular bowel habits HISTORY OF PRESENT ILLNESS Ms. Martinez is a 35 y.o. 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 In regards to bowel movements, patient reports over the past week stools have been normal, reports going to the bathroom about twice daily typically once in the morning and once at night, well formedand brown in color, described as [place] type 4, not associated with worsening of her abdominal pain. Only reports taking MiraLax daily which she has found helpful. Otherwise she is unclear what helped resolve both her constipation and diarrhea however has been only using dilaudid and hycosamine asneeded to prevent medication induced constipation. Denies any recent blood in her stool. Denies anymelena. Unfortunately, patient continues to have abdominal pain that is unchanged since her recent hospitaladmission. Abdominal pain is located in the lower part and center of her abdomen, described as a sharp stabbing pain, that is constant throughout the day only fluctuates in severity. Typically reports wakes up with a 3/10 abdominal pain at baseline, then will have spikes in her pain to about a 6/10typically around noon hour and then again at night. Spikes in pain are not associated with any increase in physical activity, ingestion of food, or bowel movements. Typically she will take Dilaudid usually at night which does help relieve but not completely resolve abdominal pain and allows her to sleep at night. Only uses Dilaudid and hyoscyamine as needed to prevent constipation as above. Otherwise has been taking per PPI b.i.d. every day, and denies any significant improvement in her belly pain with this. She has been avoiding all NSAIDs. Otherwise continues on prednisone, currently on 20 mg daily with plans to wean to 10 mg July 20. Did not endorse any changes in symptoms when weaning from 30 mg to 20 mg. Nausea is currently well controlled with Zofran. Otherwise she denies any recent sick contacts no recent fevers. Denies any weight loss, if anything has gained weight since discharge which she attributes to her prednisone. Following w/ palliative care regarding symptom management REVIEW OF SYSTEMS All systems reviewed and negative except as per HPI. PAST MEDICAL AND SURGICAL HISTORY I have reviewed, verified and updated Radha's past history as noted in the chart. Medical History[1] Surgical History[2] MEDICATIONS Current Medications[3] Allergies[4] SOCIAL HISTORY Smoking: denies Alcohol: denies Recreational Drugs: denies FAMILY HISTORY No significant history of gastrointestinal disease. Family History of: Details Colon Cancer [x] No [] Yes Inflammatory Bowel Disease [] No [x] Yes GF Crohn Liver Disease [x] No [] Yes OBJECTIVE VITAL SIGNS Vitals: 07/16/25 0944 BP: (!) 166/105 Pulse: 98 BMI 35.28 kg/m?? PHYSICAL EXAMINATION Physical Exam General: No acute distress. HEENT: Anicteric sclera. Abdomen: Soft, non-distended, mildly-tender to palpation in RUQ. No guarding or rebound tenderness.Negative garcía sign. DIAGNOSTICS Labs: I have reviewed all pertinent laboratory studies and diagnostics relevant to this consultation. Lab Results Component Value Date WBC 7.6 07/16/2025 HGB 12.3 07/16/2025 HCT 38.4 07/16/2025 MCV 85.3 07/16/2025 PLT 217 07/16/2025 Lab Results Component Value Date ALT 39 07/16/2025 AST 14 07/06/2025 GGT 41 (H) 07/02/2025 ALKPHOS 103 07/16/2025 BILITOT <0.2 07/16/2025 Lab Results Component Value Date NA 139 07/16/2025 KSERUM 3.9 07/16/2025 KPLASMA 4.4 05/08/2025 EXTK 4.7 01/10/2022 CL 103 07/06/2025 BICARB 24 07/06/2025 CREATININE 0.86 07/16/2025 EGFRBLKAA >90 06/22/2022 EGFRNONBLKAA >90 06/22/2022 EGFR 90 07/16/2025 BUN 16 07/16/2025 ANIONGAP 13 07/06/2025 GLUCOSE 130 (H) 07/16/2025 GLUCOSEPOC 98 06/25/2019 CALCIUM 9.3 07/16/2025 Lab Results Component Value Date INR 1.0 06/26/2025 INR 1.0 03/10/2025 INR 1.0 12/02/2024 PT 10.7 06/26/2025 PT 10.8 03/10/2025 PT 10.5 12/02/2024 Lab Results Component Value Date HEPCAB Negative 12/12/2018 HEPBSAG Negative 12/12/2018 Lab Results Component Value Date FERRITIN 132 03/24/2025 MELD 3.0: 7 at 06/27/2025 3:50 AM MELD-Na: 6 at 06/27/2025 3:50 AM Calculated from: Serum Creatinine: 0.73 mg/dL (Using min of 1 mg/dL) at 06/27/2025 3:50 AM Serum Sodium: 139 mmol/L (Using max of 137 mmol/L) at 06/27/2025 3:50 AM Total Bilirubin: 0.2 mg/dL (Using min of 1 mg/dL) at 06/27/2025 3:50 AM Serum Albumin: 3.9 g/dL (Using max of 3.5 g/dL) at 06/27/2025 3:50 AM INR(ratio): 1.0 at 06/26/2025 5:24 AM Age at listing (hypothetical): 35 years Sex: Female at 06/27/2025 3:50 AM Pertinent Diagnostic Studies CT enterography 06/30/2025: FINDINGS: Normal course and [...] Previous groundglass opacities from 06/05/2025 have resolved. Pertinent Endoscopy 06/2025 EGD Post-op Diagnoses: - Oral thrush present involving [...] rule out GVHD and CMV as requested. Flex sig Post-op Diagnoses: - Preparation of the colon was poor. - Stool in the rectum and in the sigmoid colon. - The rectum and sigmoid colon are normal where seen. Biopsied to rule out GVHD and CMV as requested. Pathology from EGD and flexible sigmoidoscopy 06/26/2025: [...] apoptosis. Correlation with clinical symptoms is recommended. ASSESSMENT / PLAN Ms. Martinez is a 35 y.o. 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 Etiologylikely multifactorial and possible related to medication induced constipation (opioid induced), nowimproved w/ daily MiraLAX use. Otherwise possible there may be a response to steroids if GVHD (biopsy indeterminate) was playing a in abnormal bowel habits; reportedly pt continues on prednisone 20 mg daily with plans to taper down to 10 mg on 07/20. Her abdominal pain unfortunately remains an ongoing issue with no significant improvement since being discharged. Possible contributors to her abdominal pain include 1. gastritis w/ PUD as noted on last EGD (06/2025), pt continues on PPI therapy BID for 8 weeks then to wean down to daily with EGD around 09/2025 to eval for gastric ulcer resolution 2. Constipation, however this seem resolved as above. 3. GVHD involving large bowel? For which she continues on prednisone taper. At this time given flex sig w/ poor prep and indeterminate biopsies, will plan to obtain colonoscopy w/ biopsies with TI exam. Otherwise pt couseled to continue to avoid NSAIDs. Otherwise review of previous extensive workup does not reveal any other obvious possible etiologies. SUMMARY OF RECOMMENDATIONS: - Medications - Continue PPI BID for 8 weeks then daily thereafter. MiraLAX daily. hyoscyamine PRN. - Procedures - Colonoscopy w/ random biopsies and TI exam, ordered for next available. EGD in 3 months to follow up gastric ulcer resolution (anticipate 09/2025) - Follow-up - Pending completion of above - Avoid all NSAIDs including ibuprofen. Minimize opioid use as able since will worsen her underlying constipation. CC: Jessica Avila, [employer]BLER, * This visit was conducted under the direct supervision of data consultant Dr. Harris. Derrick Cruz Jr., M.D., M.S. Gastroenterology and Hepatology Fellow [1] Past Medical History: Diagnosis Date Amblyopia Bilateral Anemia Anxiety Generalized Disorder Depressive Disorder Fibromyalgia 2020 Headache Unspecified Irritable Bowel Syndrome, Unspecified 2016 Leukemia Migraine Headache Other Injury Of Unspecified Body Region Strabismus [2] Past Surgical History: Procedure Laterality Date EYE SURGERY Right 1989 INSERTION CENTRAL VENOUS LINE N/A 12/03/2024 Procedure: INSERTION CENTRAL VENOUS LINE, [place]; Surgeon: Brianna Hernandez M.D., Ph.D.; Location: [facility] OR [3] Current Outpatient Medications: acyclovir (Zovirax) 400 mg tablet, Take 1 tablet (400 mg total) by mouth 2 (two) times a day., Disp: 60 tablet, Rfl: 11 alum-mag hydroxide-simeth (Maalox) 200-200-20 mg/5 mL suspension, Take 30 mL by mouth every 4 (four) hours as needed for indigestion (dyspepsia). (Patient not taking: Reported on 07/16/2025), Disp: 354 mL, Rfl: 1 ARIPiprazole (Abilify) 10 mg tablet, Take 1 tablet (10 mg total) by mouth daily. Dose change 12/02/2024, Disp: 30 tablet, Rfl: 5 buprenorphine (Butrans) 5 mcg/hour, Place 1 patch on the skin once a week Indication: Chronic Pain/Nonacute Pain., Disp: 4 patch, Rfl: 0 cholecalciferol (Vitamin D3) 50 mcg (2,000 Unit) tablet, Take 50 mcg by mouth daily., Disp: , Rfl: DULoxetine (Cymbalta) [address] capsule, Take 2 capsules (120 mg total) by mouth daily., Disp: 120 capsule, Rfl: 5 hydroCHLOROthiazide (HydroDiuril) 25 mg tablet, Take 1 tablet (25 mg total) by mouth daily., Disp: 30 tablet, Rfl: 2 HYDROmorphone (Dilaudid) 1 mg/mL liquid, Take 2 mL (2 mg total) by mouth every 6 (six) hours as needed for pain Indication: Chronic Pain/Nonacute Pain. (Patient taking differently: Take 2 mg by mouthevery 6 (six) hours as needed for pain Indication: Chronic Pain/Nonacute Pain. Patient taking 4 mg every 6 hours), Disp: 60 mL, Rfl: 0 hyoscyamine (Levsin) 0.125 mg tablet, Take 1 tablet (0.125 mg total) by mouth every 4 (four) hours as needed for bladder spasms. For abdominal pain/cramping/spasm, Disp: 30 tablet, Rfl: 1 melatonin 5 mg tablet, Take 5-10 mg by mouth at bedtime., Disp: , Rfl: naloxone (Narcan) 4 mg/actuation nasal spray, Administer 1 spray (4 mg total) into nostril(s) once for 1 dose. Use 1 spray in 1 nostril. Repeat with second device in other nostril after 2-3 minutes if no or minimal response. (Patient not taking: Reported on 06/30/2025), Disp: 2 each, Rfl: 0 OLANZapine (ZyPREXA) 5 mg tablet, Take 1 tablet (5 mg total) by mouth at bedtime. (Patient not taking: Reported on 07/16/2025), Disp: 30 tablet, Rfl: 1 ondansetron ODT (Zofran-ODT) 4 mg disintegrating tablet, Dissolve 1-2 tablets (4-8 mg total) in themouth every 8 (eight) hours as needed for nausea or vomiting. (Patient not taking: Reported on 07/16/2025), Disp: 20 tablet, Rfl: 1 pantoprazole (Protonix) 40 mg EC tablet, Take 1 tablet (40 mg total) by mouth 2 (two) times a day as needed for heartburn. (Patient not taking: Reported on 07/16/2025), Disp: , Rfl: penicillin V potassium (Veetids) 500 mg tablet, Take 1 tablet (500 mg total) by mouth 2 (two) timesa day., Disp: 60 tablet, Rfl: 11 posaconazole (NoxafiL) [address] tablet, Take 3 tablets (300 mg total) by mouth daily., Disp: 90 tablet, Rfl: 3 predniSONE (Deltasone) 10 mg tablet, Take 1 tablet (10 mg total) by mouth as directed. Take 3 tablets 07/06-07/12, 2 tablets 07/13-07/19, 1 tablet 07/20-07/26, 1/2 tab 07/27 -08/02 and then stop, Disp: 45 tablet, Rfl: 0 prochlorperazine (Compazine) 10 mg tablet, Take 1 tablet (10 mg total) by mouth every 6 (six) hoursas needed for nausea., Disp: 30 tablet, Rfl: 2 sulfamethoxazole-trimethoprim (Bactrim) 400-80 mg per tablet, Take 1 tablet by mouth daily., Disp: 60 tablet, Rfl: 1 [4] Allergies Allergen Reactions Oxycodone GI intolerance Severe nausea Bupropion Edema (Reselect Reaction) Grapefruit Other (see comments) Drug-drug interaction with Bosulif (bosutinib); This had also been noted w/ prior therapy which patient is no longer taking (Tasigna (nilotinib)). * Aron Harris M.D. - 07/16/2025 9:40 AM CDT SUBJECTIVE REASON FOR CONSULT Abdominal pain. REFERRAL SOURCE Jessica Avila, KARON. HISTORY OF PRESENT ILLNESS I have had the privilege to review the history, physical examination findings, and management plansas documented by Dr. Derrick Cruz Jr., in his note dated today. ASSESSMENT / PLAN #1 Abdominal pain, medically unexplained Ms. Martinez is a young woman, 35 years of age, from [place], [place]. Her history is remarkable for chronic myelogenous leukemia status post bone marrow transplant earlier this year. Since that time, she has had altered bowel pattern with predominant constipation, nausea, abdominal pain requiring opioid analgesic, and negative evaluation. Esophagogastroduodenoscopy was remarkable for erosive gastritis, and cross-sectional imaging studies including CT enterography and sigmoidoscopy with biopsies did not point to any specific diagnosis. Her symptoms are being managed with NSAID avoidance, twice-daily proton pump inhibitor, ondansetron, hydromorphone, polyethylene glycol, hyoscyamine, and prednisone directed toward xxcjn-wqvylv-esld disease. Her left lower quadrant abdominal pain continues. In this setting, we have offered her further evaluation with colonoscopy with terminal ileal exam, and random biopsies. If there are specific findings, then we can tailor therapy accordingly. On the other hand, if there is no specific finding, then management will continue to be symptomatic and reassurance. Perhaps in that setting, alternative treatment with medication that has mucosal protectiveeffect, and indication to treat opioid-induced constipation, as well as constipation-predominant irritable bowel syndrome, specifically lubiprostone initially 8 mcg twice a day would be worthwhile totry. We can consider this when we follow up with her after results of her colonoscopy and biopsies are available. Ms. Martinez is in agreement with this approach. Aron Harris M.D. CT CT Job ID: [id number] documented in this encounter Plan of Treatment Upcoming Encounters Date Type Department Care Team (Late st Contact Info) Description 07/21/2025 11:00 AM CDT Telemedicine Department of Palliative Care in [place], [place] [address] [place] [phone] Meghan Osorio M.D. [address] [place] [phone] 07/22/2025 8:40 AM CDT Lab Department of Laboratory Medicine and Pathology, [facility], in [place], [place] [address] [place] [phone] Becky Hernandez APRN C.N.P., D.N.P. [address] [place] [phone] 07/22/2025 9:30 AM CDT Office [facility] in [place], [place] [address] [place] [phone] Becky Hernandez APRN, C.N.P., D.N.P. [address] [place] [phone] 07/30/2025 2:00 PM CDT Appointment Division of Gastroenterology in [address] [phone] Derrick Cruz Jr., M.D., M.S. [address] [place] [phone] 08/11/2025 9:00 AM CDT Nurse Only Section of Infectious Diseases in [place], [place] [address] [place] [phone] Jessica Rousseau M.B.B.S. [address] [place] [phone] 08/11/2025 1:00 PM CDT Clinical Support Department of Palliative Care in [place], [place] [address] [place] [phone] Uma Aly APRN, CKatalinaN.P., M.S.N. [address] [place] [phone] 08/13/2025 10:00 AM CDT Lab Department of Laboratory Medicine and Pathology, [facility], in [place], [place] [address] [place] [phone] Jessica Rousseau M.B.B.S. [address] [place] [phone] 08/13/2025 10:30 AM CDT [facility] [place], [place] [address] [place] [address] Jessica Rousseau M.B.B.S. [address] [place] [phone] 08/13/2025 11:00 AM CDT Nurse Only [facility] in [place], [place] [address] [place] [address] Jessica Rousseau M.B.B.S. [address] [place] [phone] 08/13/2025 11:30 AM CDT [facility] in [place], [place] [address] [place] [phone] Jessica Rousseau M.B.B.S. [address] [place] [phone] 09/25/2025 10:30 AM ODD BUNDLE WORKER Telemedicine [facility] in [place], [place] [address] [place] [phone] Jessica Rousseau M.B.B.S. 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 Author [facility] Care Plan for Colonoscopy Routine Prep Care Plan [facility] Care Plan for Colonoscopy Routine Prep No Derrick Cruz Jr., M.D., M.S. 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 Care Plan for Colonoscopy Routine Pr ep 07/16/2025 Autogenerated Problem 07/16/2025 Infection Onset Date Last Indicated Resolved Time Protective Environment 03/02/2023 03/02/2023 Assessment Noted Time PHQ-9 Depression Total Score: 12 025 9:42 AM CDT documented as of this encounter Care Teams Network Planner Relationship Specialty Start Date End Date Renzo Andres M.D. [address] [place] [address] [place] [phone] PCP - General Family Medicine 04/25/23 documented as of this encounter
--- OUTSIDE RECORDS SUMMARY | 2025-07-19 16:34 | XMS_ITS | Clinical Summary ---
Author Organization [facility] Address [address] [place] [address] Care Team Providers Care Gas Station Cashier Name Role Phone System, Provider Not In [...] Mass Index - - Plan of Treatment Health Maintenance Due Date Last Done Comments [...] HEPATITIS C SCREENING Completed 08/02/2023, 019 [place] [place] [place] Care Teams Gas Station Cashier Relationship Specialty Start Date End Date System, Provider Not In PCP - General Clinic 06/08/22
--- OUTSIDE RECORDS SUMMARY | 2025-07-19 16:34 | XMS_ITS | Clinical Summary ---
Author Organization [facility] Address [address] [place] [address] Care Team Providers Care Dice Table Person Name Role Phone Antoinette Palacio PhD, LP Unavailable [phone] Shweta Graciakim Huber NUTRITION FACULTY MEMBER Unavailable [phone] Unavailable [phone] Staff, Other Clinical Unavailable UnavailErmelinda Cadet MD [...] once daily. 90 Tablet 06/05/20 25 Active Active Problems Problem Noted Date Diagnosed [...] 04/09/2017 Overview (03/19/2018): Signed 11/20/2016 Dr Mady Yaenz Psychiatry Relationship problems 02/08/2017 Grief 02/08/2017 Major [...] Encounters Date Type Department Care Team Description 07/13/2025 1:45 PM CDT Telemedicine [facility] [address] [place] [address] Renita Pichardo PsyD, FIDENCIO Psychotherapy 07/06/2025 2:45 PM CDT Telemedicine [facility] [address] [place] [address] Renita Pichardo PsyD, LP Psychotherapy 07/01/2025 Nurse Triage [facility] [address] [place] [address] Ermelinda Pierre MD Abdominal Pain 06/29/2025 11:15 AM CDT Telemedicine [facility] [address] [place] [address] Renita Pichardo PsyD, LP Psychotherapy 06/22/2025 11:15 AM CDT Telemedicine [facility] [address] [place] [address] Renita Pichardo PsyD, LP Psychotherapy 06/18/2025 Telephone [facility] [address] [place] [address] Renita Pichardo PsyD, LP Late Cancel Appointment (APT 06/19/2025) 06/17/2025 Telephone [facility] [address] [place] [address] Renita Pichardo PsyD, LP Late Cancel Appointment 06/08/2025 11:15 AM CDT Telemedicine [facility] [address] [place] [address] Renita Pichardo PsyD, LP Psychotherapy 06/08/2025 Nurse Triage [facility] [address] [place] [address] Ermelinda Pierre MD Appointment 06/05/2025 1:00 PM CDT Telemedicine [facility] [address] [place] [address] Felicia Weathers NP Follow Up; Medication Management; Telehealth 06/05/2025 Travel 06/01/2025 8:45 AM CDT Telemedicine [facility] [address] [place] [address] Renita Pichardo PsyD, LP Psychotherapy 05/29/2025 Telephone [facility] [address] [place] [address] Iris Victor CIGARETTE MAKER Care Coordination (Re Engagement ) 05/28/2025 Telephone [facility] [address] [place] [address] Renita Pichardo PsyD, LP FYI (Regarding appointment) 05/20/2025 1:45 PM CDT Telemedicine [facility] [address] [place] [address] Renita Pichardo PsyD, LP Psychotherapy 05/12/2025 1:45 PM CDT Telemedicine [facility] [address] [place] [address] Renita Pichardo PsyD, LP Psychotherapy 05/08/2025 Telephone [facility] [address] [place] [address] Felicia Weathers NP Follow Up 05/06/2025 Telephone [facility] [address] [place] [address] Ermelinda Pierre MD ACC Order Request 05/04/2025 11:15 AM CDT Telemedicine [facility] [address] [place] [address] Renita Pichardo PsyD, LP Psychotherapy 04/20/2025 11:15 AM CDT Telemedicine [facility] [address] [place] [address] eRnita Pichardo PsyD, LP Psychotherapy from Last 3 [...] on file Legal Sex Female 5:23 AM MAGNET VALVE ASSEMBLER Gender Identity Not on file Sexual Orientation [...] 36.2 C (97.1 F) 11/21/2023 9:09 AM MAGNET VALVE ASSEMBLER Respiratory Rate 18 11/21/2023 9:09 AM MAGNET VALVE ASSEMBLER Oxygen Saturation 98% 06/23/2024 10:48 AM CDT Inhaled Oxygen Concentration - - Weight 99.1 kg (218 lb 8 oz) 06/23/2024 10:48 AM CDT Height 172 cm (5' 7.72) 06/23/2024 10:48 AM CDT Body Mass Index 33.5 06/23/2024 10:48 AM CDT Plan of Treatment Upcoming Encounters Date Type Department Care Team (Late st Contact Info) Description 07/29/2025 1:00 PM CDT Telemedicine [facility] [address] [facility] [address] [place] [phone] Renita Pichardo PsyD, LP [address] [facility] [address] [place] [address] 08/04/2025 10:30 AM CDT Office Visit [facility] [address] [facility] [address] [place] [phone] Renita Pichardo PsyD, LP [address] [facility] [address] [place] [address] 08/05/2025 1:00 PM CDT Telemedicine [facility] [address] [facility] [address] [place] [phone] Renita Pichardo PsyD, LP [address] [place] [address] 08/06/2025 10:30 AM CDT Office Visit [facility] [address] [facility] [address] [place] [phone] Renita Pichardo PsyD, LP [address] [facility] [address] [place] [address] 08/11/2025 10:30 AM CDT Office Visit [facility] [address] [phone] Renita Pichardo, PsyD, LP [address] [place] [address] 08/12/2025 1:00 PM CDT Telemedicine [facility] [address] [facility] [address] [place] [phone] Renita Pichardo, PsyD, LP [address] [place] [address] [place] [address] 08/18/2025 10:30 AM CDT Office Visit [facility] [address] [facility] [address] [place] [phone] Renita Pichardo, MacoyD, LP [address] [place] [address] [place] [address] 08/20/2025 10:30 AM CDT Office Visit [facility] [address] [facility] [address] [place] [phone] Renita Pichardo, PsyD, LP [address] [place] [address] [place] [address] 08/25/2025 10:30 AM CDT Office Visit [facility] [address] [facility] [address] [place] [phone] Renita Pichardo, PsyD, LP [address] [place] [address] [place] [address] 08/27/2025 10:30 AM CDT Office Visit [facility] [address] [facility] [address] [place] [phone] Reniat Pichardo, PsyD, LP [address] [place] [address] [place] [id number] 08/28/2025 1:00 PM CDT Telemedicine [facility] [address] [place] [address] Felicia Weathers, MUSTAPHA [address] [place] [address] 09/01/2025 10:30 AM CDT Office Visit [facility] 280 [facility] [address] [place] [phone] Renita Pichardo PsyD, LP [address] [place] [address] [facility] [place] [address] 09/03/2025 10:30 AM CDT Office Visit [facility] [address] [facility] [address] [place] [phone] Renita Pichardo PsyD, LP [address] [place] [address] [facility] [place] [address] 09/08/2025 10:30 AM CDT Office Visit [facility] [address] [facility] [address] [place] [phone] Renita Pichardo PsyD, LP [address] [place] [address] [place] [address] 09/10/2025 10:30 AM CDT Office Visit [facility] 280 [facility] [address] [place] [phone] Renita Pichardo PsyD, LP [address] [place] [address] [place] [address] Health Maintenance Due Date Last Done Comments [...] 06/05/2026 06/05/2025, 10/02/2024, 09/30/2024, Additional history exists RSV vaccine for adults or (1 - 1-dose 75+ series) 02/03/2064 Hepatitis B series for 19+ Completed 03/07, 02/19/2001, 10/31/2000, Additional history exists HIV for age 15-65 Completed 12/26/2010 Hepatitis C screening for ag e 18-79 Completed 08/02/2023 Procedures Procedure Name Priority Date/Time Associated Diagnosis Comments ANTI HCV Routine 08/02/2023 1:57 PM CDT Need for hepatitis C screening test RIVER DRIVER THIN PREP PAP SCREEN IMAGED Routine 11/25/2013 11:15 AM MAGNET VALVE ASSEMBLER Screening for malignant neoplasm of the cervix ANTI HIV 1/2 Routine 12/26/2010 5:05 PM MAGNET VALVE ASSEMBLER Supervision of normal first (HC) from Last 3 Months or Most Recently Relevant to Health Maintenance Results * ANTI HCV (08/02/2023 1:57 PM CDT) HEPATITIS C ANTIBODY Non-Reacti ve Non-React nina 08/03/2023 3:36 PM CDT [facility] Comment:Please note, per www .CDC.gov: [...] CDT Estefany BLAND SEND OUTS Final Result [facility] SENDOUT INTERNAL ZIP [address] [address] [place] [address] * RIVER DRIVER THIN PREP PAP SCREEN IMAGED (11/25/2013 11:15 AM MAGNET VALVE ASSEMBLER) CYTOLOGY CYTOPATHOLOGY REPORT [facility] Status: Final Status [id number] CLINICAL INFORMATION Last Date of LMP :11/17/13 Last Pap Date :03/03/2011 Last Pap Result :NIL ABN Quitman/Bx Past 5 YRS :None Hormone Usage :BCP/OCP/Patch/Rin g Menstrual Status :Regular Periods Quitman/Bx done today :No Additional Information :None given [...] malignant lesions. COLLECTED:11/25/13 ACCESSIONED: 11/26/13 SIGNED: 12/02/13 [facility] PAP [place] CODE NIL [facility] Tissue specimen (specimen) (Cervical/Vagina l) 11/25/2013 11:15 AM MAGNET VALVE ASSEMBLER 11/25/2013 11:12 AM MAGNET VALVE ASSEMBLER us Cecile Sorensen Julissa PATHOLOGY/CYTOLOGY Final Resu lt [facility] INTERNAL ZIP [address] [place] [address] * ANTI HIV 1/2 (12/26/2010 5:05 PM MAGNET VALVE ASSEMBLER) ANTI HIV 1/2 Non-reacti ve [facility] Blood specimen (specimen) BLOOD SPECIMEN / Unknown 12/26/2010 5:05 PM MAGNET VALVE ASSEMBLER 12/26/2010 4:55 PM MAGNET VALVE ASSEMBLER us Ladonna Nathan WRECKING SUPERVISOR SEND OUTS Final Result [facility] INTERNAL ZIP [address] [address] from Last 3 Months or Most Recently Relevant to Health Maintenance Insurance MEDICARE PB ONLY MEDICARE PART A HB ONLY MEDICARE PART B HB ONLY [facility] * Guarantor: MANNY GUY Account Type Relation to Patient Date of Phone Billing Address [facility] Employer 11/19/2000 [phone] (Home) ATTN: FRANK WHITE [address] [address] Care Teams Dice Table Person Relationship Specialty Start Date End Date [place] [address] [place] [address] PCP - General Family Practice 06/23/24 Antoinette Palacio, PhD, Psychologist Psychology 04/24/12 Gracia Rock CNS [address] [facility] [address] [place], [place] [address] Consulting Physician Clinical Nurse Specialist 07/07/[address] [facility] [address] [place], [place] [address] Registered Dietitian Director Of Primary 07/07/22 Staff, Other Clinical . Therapist Mental Health 07/03/22
[2025-07-19 16:41] VITALS: BP 155/94; PULSE 98; RESP 22; TEMP 36.4; O2SAT 99; BMI 35.4
--- NOTE | 2025-07-19 17:02 | ED_ITS ---
HPI - General Adult General Time Seen by Provider: 16:55 Date Seen: 07/19/25 Chief complaint: Shortness of Breath/Dyspnea Stated complaint: Chest Tightness, Shortness of Breath Time Seen by Provider: 07/19/25 16:55 Source: patient, RN notes reviewed and old records reviewed Mode of arrival: ambulatory Limitations: no limitations History of Present Illness HPI narrative: This 35-year-old female is coming in with chest tightness and shortness of breath that developed about midnight last night. She talked to her bone marrow transplant team they told her to come in to be evaluated. 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 She has not been sick with anything, no fevers or chills, no cough or cold symptoms. No known ill contacts. 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 She still having some abdominal pain but no new GI symptoms associated with her current symptoms here tonight. The chest tightness and shortness of breath is intermittent, she is not feeling it now. She has had no history of asthma, does not smoke. She has had no increased GI symptomatology your pain, states she is having regular bowel movements. She did have an EGD at [facility] on June 01. She was seen for chest pain on both May 31 and book ending this EGD at [place]. She was also back on June 04 with atypical chest pain. Since that time she was here on June 08 with abdominal pain, June 14 with atypical chest pain, June 17 for abdominal pain, June 30 and July 02 with abdominal pain. She notes no heart symptoms like rac ing or skipping beats, no chest pain with this. She becomes tearful and states her anxiety is higher, she states she just worries about her health. She endorses feeling more bloated in her abdomen and more sense of tissue fullness in her face from her steroids, they are tapering them down. Related Data Home Medications ?Medication ?Instructions ?Recorded ?Confirmed duloxetine 60 mg capsule,delayed 60 mg PO BID 08/06/22 07/19/25 release acyclovir 400 mg tablet 400 mg PO BID 05/31/2507/19 aripiprazole 10 mg tablet 10 mg PO DAILY 05/31/2506/21 buprenorphine 5 mcg/hour weekly 1 patch topical Q7D ch ronic pain 05/31/25 07/19/25 transdermal patch hydromorphone 1 mg/mL oral liquid 0.5 mg PO DAILY PRN pain 05/31/25 07/19/25 pantoprazole 40 mg tablet,delayed 40 mg PO BID 5 07/19/25 release penicillin V potassium 500 mg 500 mg PO BID 05/31/25 0 07/19/25 tablet posaconazole 100 mg tablet,delayed 100 mg PO TID 05/3107/19/25 release budesonide 3 mg 3 mg PO BID 06/14/25 5 capsule,delayed,extended release aluminum-mag hydroxide-simethicone 30 ml PO Q4H PRN 07/19/25 200 mg-200 mg-20 mg/5 mL oral susp (Antacid Regular Strength) cyclobenzaprine 5 mg tablet mg PO 07/19/25 hydrochlorothiazide 25 mg tablet 25 mg PO DAILY 07/19/25 hydromorphone 2 mg tablet PO 07/19/25 hydroxyzine HCl 25 mg tablet mg PO 07/19/25 hyoscyamine sulfate 0.125 mg tablet mg PO 07/19/25 olanzapine 2.5 mg tablet mg PO BID 07/19/25 olanzapine 5 mg tablet 5 mg PO QPM 07/19/25 5 peg 3350-electrolytes 236 ml PO 07/19/25 gram-22.74 gram-6.74 gram-5.86 gram solution (GaviLyte-G) prednisone 10 mg tablet mg PO 07/19/25 prochlorperazine maleate 10 mg 10 mg PO Q6H PRN 07/19/25 tablet tramadol 50 mg tablet PO 07/19/25 Previous Rx's ?Medication ?Instructions ?Recorded ketorolac 10 mg tablet 10 mg PO Q6H PRN pain #20 ta bs 06/17/25 cyclobenzaprine 10 mg tablet 10 mg PO HS PRN insomnia #14 tabs 07/02/25 hydroxyzine pamoate 25 mg capsule 25 mg PO TID PRN Yaneli n medication 07/02/25 enhancement #30 caps Allergies Allergy/AdvReac Type Severity Reaction Status Date / Time grapefruit Allergy Intermediate other Verified 07/19/25 16:39 amoxicillin Allergy Mild other Verified 07/19/25 16:39 bupropion (From Wellbutrin) Allergy Mild Hives Verified 07/19/25 16:39 Review of Systems Status of ROS: Reports: 6 or more systems reviewed and unremarkable except as noted in History and below [facility] Medical History Closed fracture of radius ?S52.90XA - Unspecified fracture of unspecified forearm, initial encounter for closed fracture (ICD-10) Depression ?F32.A - Depression, unspecified (ICD-10) Violation of controlled substance agreement ?Z91.148 - Patient's other noncompliance with medication regimen for other reason (ICD-10) Obesity ?E66.9 - Obesity, unspecified (ICD-10) Disorder of eye movements ?H51.9 - Unspecified disorder of binocular movement (ICD-10) Sciatica ?M54.30 - Sciatica, unspecified side (ICD-10) Neuropathy ?G62.9 - Polyneuropathy, unspecified (ICD-10) Migraines ?G43.909 - Migraine, unspecified, not intractable, without status migrainosus (ICD-10) Irritable bowel ?K58.9 - Irritable bowel syndrome, unspecified (ICD-10) Fibromyalgia ?M79.7 - Fibromyalgia (ICD-10) Anxiety ?F41.9 - Anxiety disorder, unspecified (ICD-10) Chronic myeloid leukemia (CML), BCR/ABL1-positive, in remission ?C92.11 - Chronic myeloid leukemia, BCR/ABL-positive, in remission (ICD-10) Surgical History History of eye surgery ?Z98.890 - Other specified postprocedural states (ICD-10) History of dilation and curettage ?Z98.890 - Other specified postprocedural states (ICD-10) History of bone marrow biopsy ?Z98.890 - Other specified postprocedural states (ICD-10) Social History Smoking Status: Never smoker Do you use any of these nicotine containing products: None Second hand tobacco smoke exposure: No How often do you have a drink containing alcohol: never How often do you have six or more drinks on one occasion: Never AUDIT-C Alcohol total score: 0 Non-prescribed substance use: denies use service: No Exam Const: Vital Signs, click to edit/add: Vital Signs - 24 hr 07/19/25 16:41 Temperature 97.6 F Pulse Rate [Pulse Oximeter] 98 Respiratory Rate 22 Blood Pressure [Ri ght Upper Arm] 155/94 H Pulse Oximetry 99 Oxygen Delivery Me thod Room Air This 35-year-old female is very pleasant, alert, interactive, no apparent distress. She does get a little tearful about talking about her health worries and thus causing her anxiety. Sclera clear pupils are equal round reactive, has known strabismus in see dysconjugate gaze concordant with that. Symmetrical facial function, speech is normal, able speak in complete sentences. Neck supple, no adenopathy, no masses, no thyromegaly masses or nodules. Lungs are clear, good air entry, no wheeze or crackles, tachypnea, no accessory muscle use. CV regular rate and rhythm, no murmur, normal S1-S2, no S3-S4. Abdomen is soft, nontender, nondistended. She has no lower extremity edema, no calf tenderness. Documenting provider has reviewed patient's vital signs: yes Course Course ED Course: In this patient we will consider ischemic pathology, other cardiac etiologies, respiratory issues including infection, pulmonary emboli. I do think with her there is a chance that this could be anxiety but will consider all these etiologies. Have already seen her EKG in that looks stable. Will have her monitored on pulse oximetry. Will start with a two view chest x-ray. If her D- dimer is normal and she does not have any hypoxia or tachycardia here, do not think she needs to have chest CT imaging as it would be unlikely to be a pulmonary embolus. Likewise with normal EKG and if her troponin is normal, doubt this represents any ischemic disease, with normal troponin makes things like myocarditis much less likely. EKG is not wireless sales representative of pericarditis. She has been on steroids as well. Reevaluation(s) Time of Reevaluation #1: 18:40 Reevaluation #1: Did review with patient her normal workup outside of the mildly elevated liver enzymes. I do not see how that is responsible for any of her symptoms. She is maintained hemodynamic stability here in do think she is safe for discharge. She can contact her promotions coordinator with the liver enzyme values and get further recommendations from them. I do not see anything that requires any further emergent evaluation tonight. Vital Signs Vital signs: Initial Vital Signs Temperature 97.6 F 07/19/25 16:41 Temperature Source Temporal Artery Scan 07/19/25 16:41 Pulse Rate 98 07/19/25 16:41 Respiratory Rate 22 07/19/25 16:41 Blood Pressure 155/94 H 07/19/25 16:41 Blood Pressure Mean 114 H 07/19/25 16:41 Pulse Oximetry 99 07/19/25 16:41 Oxygen Delivery Method Room Air 07/19/25 16:41 Vital Signs Temperature 97.6 F 07/19/25 16:41 Pulse Rate 98 07/19/25 16:41 Respiratory Rate 22 07/19/25 16:41 Blood Pressure 155/94 H 07/19/25 16:41 Pulse Oximetry 99 07/19/25 16:41 Oxygen Delivery Method Room Air 07/19/25 16:41 Temperature 97.6 F 07/19/25 16:41 Pulse Rate 98 07/19/25 16:41 Respiratory Rate 22 07/19/25 16:41 Blood Pressure 155/94 H 07/19/25 16:41 Pulse Oximetry 99 07/19/25 16:41 Oxygen Delivery Method Room Air 07/19/25 16:41 Medical Decision Making Lab Data Lab results reviewed: Yes I reviewed the patient's lab results Labs: Lab Results 07/19/25 07/19/25 Range/Units 17:30 17:31 WBC 7.09 (4.50-11.00) K/uL RBC 4.38 (4.00-5.20) m/uL Hgb 12.0 (12.0-16.0) gm/dL Hct 37.2 (33.0-51.0) % MCV 85 (80-100) fL MCH 27 (26-34) pg MCHC 32 (32-36) gm/dL RDW Coeff of [place] 14.6 (11.5-15.5) % Plt Count 198 (140-440) K/uL Neut % (Auto) 77.3 H (42.0-72.0) % Lymph % (Auto) 13.1 L (20-44) % [place] % (Auto) 6.1 (0.0-11.0) % Eos % (Auto) 0.7 (0.0-7.0) % Baso % (Auto) 0.1 (0.0-3.0) % Neut # (Auto) 5.50 (1.7-7.0) K/uL Lymph # (Auto) 0.90 (0.90-2.90) K/uL [place] # (Auto) 0.40 (0.00-0.90) K/UL Eos # (Auto) 0.05 (0.00-0.50) K/uL Baso # (Auto) 0.01 (0.00-0.30) K/uL Abs Immat Gran (auto) 0.19 (0.00-0.30) K/uL Imm/Tot Granulo (auto) 2.7 % D-Dimer Quant (PE/DVT) < 0.27 (0.00-0.50) ug/ml VBG pH 7.406 (7.32-7.43) VBG pCO2 46 (40-50) mmHG VBG pO2 46.8 (25-47) mmHG VBG HCO3 29 H (21-28) mmol/L Sodium 138 (135-149) mmol/L Potassium 3.9 (3.6-5.1) mmol/L Chloride 102 (96-114) mmol/L Carbon Dioxide 29 (20-32) mmol/L Anion Gap 7 (7-15) mEq/L BUN 17 (5-24) mg/dL Creatinine 0.9 (0.5-1.5) mg/dL Estimated Creat Clear 87.17 Estimated GFR 85 ml/min Glucose 145 H (60-115) mg/dL Calcium 9.6 (8.4-10.6) mg/dL Total Bilirubin 0.3 (0.1-1.5) mg/dL AST 36 H (12-35) U/L ALT 49 H (4-35) U/L Alkaline Phosphatase 127 (40-150) U/L Troponin I < 0.01 (0.01-0.04) ng/mL C-Reactive Protein 0.8 (0.5-1.0) mg/dL NT-Pro-B Natriuret Pep < 20 (See Note) pg/mL Total Protein 7.3 (6.0-8.3) g/dL Albumin 4.2 (3.3-5.0) g/dL SARS-CoV-2 (PCR) Negative SARS-CoV-2 (Negative) Influenza Type A (PCR) Negative PCR FLU A (Negative) Influenza Type B (PCR) Negative PCR FLU B (Negative) RSV (PCR) Negative PCR RSV (Negative) Imaging Data Chest x-ray: Attestation: I have reviewed the pertinent imaging results. My impression: Do not appreciate any acute pathology on my preliminary review. Radiologist's impression: Patient: HUMAIRA VELEZ Facility:?[facility] Patient ID:?[id number] Site Patient ID:?[id number]. Site :?[id number] Study:?XRay-Chest 2V-07/19/2025 5:49:02 PM Ordering Physician:?Pamela Mcarthur Final Report: INDICATION: Chest pain. TECHNIQUE: Chest 2 views. COMPARISON: June 04, 2025. FINDINGS: Cardiovascular and mediastinum: Heart size and vasculature are normal in caliber and appearance. Lungs and pleural spaces: Lungs are clear. No sign of infiltrate or mass. No sign of pleural effusion. No pneumothorax. Bones and soft tissues: No significant findings. IMPRESSION: No acute or significant findings. Dictated by Mohan Jon MD @ 07/19/2025 5:54:22 PM (Electronic Signature) ECG Data Attestation: I personally reviewed and interpreted this ECG as follows: (Normal sinus rhythm, 90 beats per minute.) Prior ECG tracings: available for review Discharge Plan Discharge Clinical Impression: Chest tightness, Shortness of breath Patient Disposition: Home, Self-Care Condition: Stable Instructions: Shortness of Breath (ED) Additional Instructions: Your workup today is not showing any acute changes as far as heart enzymes, lung issues. Your white blood count was normal, hemoglobin stable, platelets normal. D-dimer was undetectable which is reassuring, makes blood clots like pulmonary emboli very unlikely. Troponin which is a heart enzyme and EKG were normal. Your AST was just mildly elevated at 36 today, ALT at 49. On June 29 they were normal at 24 and 33 respectively. Are normal range for AST is 12-35 and ALT is 4-35. Your alkaline phosphatase and total bilirubin were normal which are other lab tests for liver. Please let your transplant team no these values and see when they might want them rechecked. I do not have an etiology for your chest symptoms at this time. If you know worsening symptoms, becoming more short of breath, have increasing chest pain or develops new symptoms such as fever, do need to seek re-evaluation. Prescriptions: No Action duloxetine 60 mg capsule,delayed release(DR/EC) 60 mg PO BID acyclovir 400 mg tablet 400 mg PO BID aripiprazole 10 mg tablet 10 mg PO DAILY buprenorphine 5 mcg/hour patch weekly 1 patch topical Q7D penicillin V potassium 500 mg tablet 500 mg PO BID pantoprazole 40 mg tablet,delayed release (DR/EC) 40 mg PO BID hydromorphone 1 mg/mL liquid 0.5 mg PO DAILY PRN (Reason: pain) posaconazole 100 mg tablet,delayed release (DR/EC) 100 mg PO TID budesonide 3 mg capsule,delayed,extend.release 3 mg PO BID olanzapine 2.5 mg tablet PO BID hydromorphone 2 mg tablet PO hyoscyamine sulfate 0.125 mg tablet PO hydroxyzine HCl 25 mg tablet PO hydrochlorothiazide 25 mg tablet 25 mg PO DAILY alum-mag hydroxide-simeth [Antacid Regular Strength] 200-200-20 mg/5 mL suspension 30 ml PO Q4H PRN cyclobenzaprine 5 mg tablet PO prednisone 10 mg tablet PO olanzapine 5 mg tablet 5 mg PO QPM prochlorperazine maleate 10 mg tablet 10 mg PO Q6H PRN tramadol 50 mg tablet PO peg 3350-electrolytes [GaviLyte-G] 236-22.74-6.74 -5.86 gram recon soln PO ketorolac 10 mg tablet 10 mg PO Q6H PRN (Reason: pain) Qty: 20 0RF Rx Instructions: maximum total duration of 5 days from all oral, intranasal, or parenteral formulations hydroxyzine pamoate 25 mg capsule 25 mg PO TID PRN (Reason: Pain medication enhancement) Qty: 30 1RF cyclobenzaprine 10 mg tablet 10 mg PO HS PRN (Reason: insomnia) Qty: 14 0RF Follow Up/Referrals: Matthews,Anny M, DIGITAL PRINT OPERATOR [Primary Care Provider, [facility]] Stand Alone Forms: MyHealth Info Instructions Procedures ABG Interpretation ABG Results: 07/19/25 17:31 VBG pH 7.406 VBG pCO2 46 VBG pO2 46.8 VBG HCO3 29 H
[2025-07-19 17:13] VITALS: O2SAT 97
--- NOTE | 2025-07-19 17:13 | CRLHL7_ITS ---
For Patients: As a result of the Cures Act, medical imaging exams and procedure reports are released immediately into your electronic medical record. You may view this report before your referring provider. If you have questions, please contact your health care provider. INDICATION: Chest pain. TECHNIQUE: Chest 2 views. COMPARISON: June 04, 2025. FINDINGS: Cardiovascular and mediastinum: Heart size and vasculature are normal in caliber and appearance. Lungs and pleural spaces: Lungs are clear. No sign of infiltrate or mass. No sign of pleural effusion. No pneumothorax. Bones and soft tissues: No significant findings. IMPRESSION: No acute or significant findings. Dictated by Mohan Jon MD @ 07/19/2025 5:54:22 PM (Electronically Signed)
[2025-07-19 17:37] LABS: HCO3 VBG 29 mmol/L (21-28); PCO2 VBG 46 mmHG (40-50); PO2 VBG 46.8 mmHG (25-47); pH VBG 7.406 (7.32-7.43)
[2025-07-19 17:46] LABS: Hematocrit 37.2 % (33.0-51.0); Hemoglobin* 12.0 gm/dL (12.0-16.0); Immature Granulocytes Abs Auto 0.19 K/uL (0.00-0.30); Immature Granulocytes Pct Auto 2.7 %; Mean Corpuscular HGB Conc 32 gm/dL (32-36); Mean Corpuscular Hemoglobin 27 pg (26-34); Mean Corpuscular Volume 85 fL (80-100); RDW Coefficient of Variation % 14.6 % (11.5-15.5); Red Blood Count 4.38 m/uL (4.00-5.20); White Blood Count* 7.09 K/uL (4.50-11.00)
[2025-07-19 17:48] LABS: Lymphocytes Absolute Auto 0.90 K/uL (0.90-2.90); Slide Review Reflex No
[2025-07-19 18:01] LABS: Albumin* 4.2 g/dL (3.3-5.0); Chloride* 102 mmol/L (96-114); Potassium* 3.9 mmol/L (3.6-5.1); Sodium* 138 mmol/L (135-149)
[2025-07-19 18:04] LABS: Alanine Aminotransferase* 49 U/L (4-35); Alkaline Phosphatase* 127 U/L (40-150); Anion Gap 7 mEq/L (7-15); Aspartate Amino Transferase* 36 U/L (12-35); Bilirubin Total* 0.3 mg/dL (0.1-1.5); Blood Urea Nitrogen* 17 mg/dL (5-24); Calcium* 9.6 mg/dL (8.4-10.6); Carbon Dioxide* 29 mmol/L (20-32); Creatinine* 0.9 mg/dL (0.5-1.5); Est. Creatinine Clearance* 87.17; Estimated Glomerular Filt Rate 85 ml/min; Glucose* 145 mg/dL (60-115); Total Protein* 7.3 g/dL (6.0-8.3)
--- OUTSIDE RECORDS SUMMARY | 2025-07-19 18:08 | XMS_ITS | Encounter Summary ---
Author Organization [facility] Address [address] [place] [address] Care Team Providers Care Hedis Abstractor Name Role Phone Renzo Andres M.D. Primary Care Provider Encounter Details Date Type Department Care Team (Late st Contact Info) Description 07/04/2006 Historical Ophthalmology [facility] Fercho Jeronimo M.D. Social History Tobacco Use Types Packs/Day Years Used Date Smoking Tobacco: Never Assessed Comments Unknown Sex and Gender Information Value Date Recorded Sex Assigned at Female 12/26/2018 8:37 PM GRAPPLE SKIDDER OPERATOR Legal Sex Female 2:43 PM GRAPPLE SKIDDER OPERATOR Gender Identity Female 12/26/2018 8:37 PM GRAPPLE SKIDDER OPERATOR Sexual Orientation Choose not to disclose [...] both eyes. No eye complaints. 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 No diplopia. Would like to get contacts. [...] both eyes CDM Reports - EYEGEN Id: [id number] Status: Fnl documented in this encounter Plan of Treatment Upcoming Encounters Date Type Department Care Team (Late st Contact Info) Description 07/21/2025 11:00 AM CDT Telemedicine Department of Palliative Care in [place], [place] [address] [place] [phone] Meghan Osorio M.D. [address] [place] [phone] 07/22/2025 8:40 AM CDT Lab Department of Laboratory Medicine and Pathology, [facility] in [place], [place] [address] [place] [address] [phone] Becky Hernandez APRN, C.N.P., D.N.P. [address] [place] [phone] 07/22/2025 9:30 AM CDT [facility] [place], [place] [address] [place] [phone] Becky Hernandez APRN, C.N.P., D.N.P. [address] [place] [phone] 07/30/2025 2:00 PM CDT Appointment Division of Gastroenterology in [place], [place] [address] [place] [phone] Derrick Cruz Jr., M.D., M.S. [address] [place] [phone] 08/11/2025 9:00 AM CDT Nurse Only Section of Infectious Diseases in [place], [place] [address] [place] [phone] Jessica Rousseau M.B.B.S. [address] [place] [phone] 08/11/2025 1:00 PM CDT Clinical Support Department of Palliative Care in [place], [place] [address] [place] [phone] Uma Aly APRN, C.N.P., M.S.N. [address] [place] [phone] 08/13/2025 10:00 AM CDT Lab Department of Laboratory Medicine and Pathology, [facility], in [place], [place] [address] [place] [phone] Jessica Rousseau M.B.B.S. [address] [place] [phone] 08/13/2025 10:30 AM CDT [facility] [place], [place] [address] [place] [phone] Jessica Rousseau M.B.B.S. [address] [place] [phone] 08/13/2025 11:00 AM CDT Nurse Only Pedro Aravind [facility] in [place], [place] [address] [place] [phone] Jessica Rousseau M.B.B.S. [address] [place] [phone] 08/13/2025 11:30 AM CDT [facility] [place], [place] [address] [place] [phone] Jessica Rousseau M.B.B.S. [address] [place] [phone] 09/25/2025 10:30 AM GRAPPLE SKIDDER OPERATOR Telemedicine [facility] in [place], [place] [address] [place] [phone] Jessica Rousseau M.B.B.S. [address] [place] [phone] documented as of this encounter Visit Diagnoses Not on filedocumented in this encounter Additional Health Concerns Infection Onset Date Last Indicated Resolved Time COVID19 Pending 04/20/2020 04/20/2020 04/23/2020 2 :28 AM CDT COVID19 Pending 07/07/2020 07/07/2020 07/07/2020 7 :12 PM CDT COVID19 Pending 03/15/2021 03/15/2021 03/16/2021 1 1:39 AM CDT COVID19 01/07/2023 01/07/2023 01/27/2023 5:15 AM GRAPPLE SKIDDER OPERATOR Protective Environment 03/02/2023 03/02/2023 COVID19 Pending 12/04/2024 12/04/2024 12/04/2024 1 0:20 AM GRAPPLE SKIDDER OPERATOR documented as of this encounter Care Teams Hedis Abstractor Relationship Specialty Start Date End Date Renzo nAdres M.D. NPAmanda: [phone] [address] [place] [phone] PCP - General Family Medicine 04/25/23 documented as of this encounter
--- OUTSIDE RECORDS SUMMARY | 2025-07-19 18:08 | XMS_ITS | Encounter Summary ---
Author Organization [facility] Address [address] [place] [address] Care Team Providers Care New Accounts Banking Representative Name Role Phone Renzo Andres M.D. Primary Care Provider Encounter Details Date Type Department Care Team (Late st Contact Info) Description 12/24/2002 Historical Ophthalmology RST OPH Fercho Jeronimo M.D. Social History Tobacco Use Types Packs/Day Years Used Date Smoking Tobacco: Never Assessed Comments Unknown Sex and Gender Information Value Date Recorded Sex Assigned at Female 12/26/2018 8:37 PM REEL SYSTEM OPERATOR Legal Sex Female 2:43 PM REEL SYSTEM OPERATOR Gender Identity Female 12/26/2018 8:37 PM REEL SYSTEM OPERATOR Sexual Orientation Choose not to disclose [...] 1) given. CDM Reports - EYEGEN Id: [id number] Status: Fnl documented in this encounter Plan of Treatment Upcoming Encounters Date Type Department Care Team (Late st Contact Info) Description 07/21/2025 11:00 AM CDT Telemedicine Department of Palliative Care in [address] [phone] Meghan Osorio M.D. [address] [place] [phone] 07/22/2025 8:40 AM CDT Lab Department of Laboratory Medicine and Pathology, [facility] in [address] [phone] Becky Hernandez APRN, C.N.P., D.N.P. [address] [place] [phone] 07/22/2025 9:30 AM CDT Office Visit [facility] Aravind [facility] for Transplantation and Clinical Regeneration in [address] [phone] Becky Hernandez APRN, C.N.P., D.N.P. [address] [place] [phone] 07/30/2025 2:00 PM CDT Appointment Division of Gastroenterology in [address] [phone] Derrick Cruz Jr., M.D., M.S. [address] [place] [phone] 08/11/2025 9:00 AM CDT Nurse Only Section of Infectious Diseases in [place], [place] [address] [place] [phone] Jessica Rousseau M.B.B.S. [address] [place] [phone] 08/11/2025 1:00 PM CDT Clinical Support Department of Palliative Care in [place], [place] [address] [place] [address] Uma Aly APRN, C.N.P., M.S.N. [address] [place] [phone] 08/13/2025 10:00 AM CDT Lab Department of Laboratory Medicine and Pathology, [facility] in [place], [place] [address] [place] [address] Jessica Rousseau M.B.B.S. [address] [place] [phone] 08/13/2025 10:30 AM CDT [facility] in [place], [place] [address] [place] [address] Jessica Rousseau M.B.B.S. [address] [place] [phone] 08/13/2025 11:00 AM CDT Nurse Only Pedro [facility] for Transplantation and Clinical Regeneration in [place], [place] [address] [place] [address] Jessica Rousseau M.B.B.S. [address] [place] [phone] 08/13/2025 11:30 AM CDT Office Visit Pedro Nazario [facility] for Transplantation and Clinical Regeneration in [place], [place] [address] [place] [address] Jessica Rousseau M.B.B.S. [address] [place] [address] 09/25/2025 10:30 AM REEL SYSTEM OPERATOR Telemedicine Pedro Aravind sanchez [facility] for Transplantation and Clinical Regeneration in [place], [place] [address] [place] [address] Jessica Rousseau M.B.B.S. [address] [place] [address] documented as of this encounter Visit Diagnoses Not on filedocumented in this encounter Additional Health Concerns Infection Onset Date Last Indicated Resolved Time COVID19 Pending 04/20/2020 04/20/2020 04/23/2020 2 :28 AM CDT COVID19 Pending 07/07/2020 07/07/2020 07/07/2020 7 :12 PM CDT COVID19 Pending 03/15/2021 03/15/2021 03/16/2021 1 1:39 AM CDT COVID19 01/07/2023 01/07/2023 01/27/2023 5:15 AM REEL SYSTEM OPERATOR Protective Environment 03/02/2023 03/02/2023 COVID19 Pending 12/04/2024 12/04/2024 12/04/2024 1 0:20 AM REEL SYSTEM OPERATOR documented as of this encounter Care Teams New Accounts Banking Representative Relationship Specialty Start Date End Date Renzo Andres M.D. [address] [place] [phone] PCP - General Family Medicine 04/25/23 documented as of this encounter
--- OUTSIDE RECORDS SUMMARY | 2025-07-19 18:08 | XMS_ITS | Encounter Summary ---
Author Organization [facility] Address [address] [place] [address] Care Team Providers Care Wallpaper Scraper Name Role Phone Renzo Andres M.D. Primary Care Provider Encounter Details Date Type Department Care Team (Late st Contact Info) Description 02/16/2005 Historical Ophthalmology RST OPH Fercho Jeronimo M.D. Social History Tobacco Use Types Packs/Day Years Used Date Smoking Tobacco: Never Assessed Comments Unknown Sex and Gender Information Value Date Recorded Sex Assigned at Female 12/26/2018 8:37 PM MANAGER CLINICAL PHARMACY Legal Sex Female 2:43 PM MANAGER CLINICAL PHARMACY Gender Identity Female 12/26/2018 8:37 PM MANAGER CLINICAL PHARMACY Sexual Orientation Choose not to disclose 2020 [...] both eyes CDM Reports - EYEGEN Id: [id number] Status: Fnl documented in this encounter Plan of Treatment Upcoming Encounters Date Type Department Care Team (Late st Contact Info) Description 07/21/2025 11:00 AM CDT Telemedicine Department of Palliative Care in [place], [place] [address] [place] [phone] Meghan Osorio M.D. [address] [place] [phone] 07/22/2025 8:40 AM CDT Lab Department of Laboratory Medicine and Pathology, [facility], in [place], [place] [address] [place] [phone] Becky Hernandez APRN C.N.P., D.N.P. [address] [place] [phone] 07/22/2025 9:30 AM CDT [facility] in [place], [place] [address] [place] [phone] Becky Hernandez APRN, C.N.P., D.N.P. [address] [place] [phone] 07/30/2025 2:00 PM CDT Appointment Division of Gastroenterology in [place], [place] [address] [place] [phone] Derrick Cruz Jr., M.D., M.S. [address] [place] [phone] 08/11/2025 9:00 AM CDT Nurse Only Section of Infectious Diseases in [place], [place] [address] [place] [address] Jessica Rousseau M.B.B.S. [address] [place] [phone] 08/11/2025 1:00 PM CDT Clinical Support Department of Palliative Care in [place], [place] [address] [place] [phone] Uma Aly APRN, C.N.P., M.S.N. [address] [place] [phone] 08/13/2025 10:00 AM CDT Lab Department of Laboratory Medicine and Pathology, [facility], in [place], [place] [address] [place] [address] Jessica Rousseau M.B.B.S. [address] [place] [phone] 08/13/2025 10:30 AM CDT Office Visit Pedro Fatima [facility] for Transplantation and Clinical Regeneration in [place], [place] [address] [place] [address] Jessica Rousseau M.B.B.S. [address] [place] [phone] 08/13/2025 11:00 AM CDT Nurse Only [facility] in [place], [place] [address] [place] [address] Jessica Rousseau M.B.B.S. [address] [place] [phone] 08/13/2025 11:30 AM CDT Office [facility] in [place], [place] [address] [place] [address] Jessica Rousseau M.B.B.S. [address] [place] [address] 09/25/2025 10:30 AM MANAGER CLINICAL PHARMACY Telemedicine [facility] Transplantation and Clinical Regeneration in [place], [place] [address] [place] [address] Jessica Rousseau M.B.B.S. [address] [place] [address] documented as of this encounter Visit Diagnoses Not on filedocumented in this encounter Additional Health Concerns Infection Onset Date Last Indicated Resolved Time COVID19 Pending 04/20/2020 04/20/2020 04/23/2020 2 :28 AM CDT COVID19 Pending 07/07/2020 07/07/2020 07/07/2020 7 :12 PM CDT COVID19 Pending 03/15/2021 03/15/2021 03/16/2021 1 1:39 AM CDT COVID19 01/07/2023 01/07/2023 01/27/2023 5:15 AM MANAGER CLINICAL PHARMACY Protective Environment 03/02/2023 03/02/2023 COVID19 Pending 12/04/2024 12/04/2024 12/04/2024 1 0:20 AM MANAGER CLINICAL PHARMACY documented as of this encounter Care Teams Wallpaper Scraper Relationship Specialty Start Date End Date Renzo Andres M.D. [address] [place] [phone] PCP - General Family Medicine 04/25/23 documented as of this encounter
--- OUTSIDE RECORDS SUMMARY | 2025-07-19 18:08 | XMS_ITS | Encounter Summary ---
Author Organization [facility] Address [address] [place] [address] Care Team Providers Care Asphalt Distributor Operator Name Role Phone Renzo Andres M.D. 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 [address] [place] [address] Phone: tel: fax: [facility] Referral ID Status Reason Start Date Expiration Date V isits Requested Visits Authorized [id number] Authorized 06/17/2025 12/17/2026 1 1 Reason for Visit * Reason Onset Date Comments Symptom Assessment 06/17/2025 Encounter Details Date Type Department Care Team (Latest Contact Info) Description 06/17/2025 Clinical Communication [facility] in [place], [place] [address] [place] [phone] Jeanna Victor Symptom Assessment Social History Tobacco [...] things needed for daily living? No 07/02/2025 [facility] Utilities Answer Date Recorded In the past 12 months has e [employer], gas, oil, or water [employer] threatened to shut off services in your home? No 07/02/2025 Depression Answer Date Recor ded PHQ-9 Total Score (max 27) 12 07/08 Housing Stability Answer Date Recorded What is your living situation today? I have a [facility] place to live 07/02/2025 Education Answer Date Recorded What is the highest level of school you have completed or the highest degree you have received? Some college, no degree 04/24/2019 Comments No Sex and Gender Information Value Date Recorded Sex Assigned at Female 12/26/2018 8:37 PM CUT OFF SAW OPERATOR METAL Legal Sex Female 2:43 PM CUT OFF SAW OPERATOR METAL Gender Identity Female 12/26/2018 8:37 PM CUT OFF SAW OPERATOR METAL Sexual Orientation Choose not to disclose 2020 [...] CDT Telemedicine Department of Palliative Care in [place], [place] [address] [place] [address] Meghan Osorio M.D. [address] [place] [address] 07/22/2025 8:40 AM CDT Lab Department of Laboratory Medicine and Pathology, [facility], in [place], [place] [address] [place] [address] Becky Hernandez APRN, C.N.PKatalina, D.N.P. [address] [place] [phone] 07/22/2025 9:30 AM CDT Office Visit [facility]ravind [facility] for Transplantation and Clinical Regeneration in [place], [place] [address] [place] [address] Becky Hernandez APRN, C.N.Jean., D.N.P. [address] [place] [phone] 07/30/2025 2:00 PM CDT Appointment Division of Gastroenterology in [place], [place] [address] [place] [phone] Derrick Cruz Jr., M.D., M.S. [address] [place] [phone] 08/11/2025 9:00 AM CDT Nurse Only Section of Infectious Diseases in [place], [place] [address] [place] [phone] Jessica Rousseau M.B.B.S. [address] [place] [phone] 08/11/2025 1:00 PM CDT Clinical Support Department of Palliative Care in [place], [place] [address] [place] [phone] Uma Aly APRN, C.N.P., M.S.N. [address] [place] [phone] 08/13/2025 10:00 AM CDT Lab Department of Laboratory Medicine and Pathology, [facility], in [place], [place] [address] [place] [address] Jessica Rousseau M.B.B.S. [address] [place] [phone] 08/13/2025 10:30 AM CDT [facility] in [place], [place] [address] [place] [address] Jessica Rousseau M.B.B.S. [address] [place] [phone] 08/13/2025 11:00 AM CDT Nurse Only [facility] in [place], [place] [address] [place] [address] Jessica Rousseau M.B.B.S. [address] [place] [phone] 08/13/2025 11:30 AM CDT [facility] in [place], [place] [address] [place] [address] Jessica Rousseau M.B.B.S. [address] [place] [phone] 09/25/2025 10:30 AM CUT OFF SAW OPERATOR METAL Telemedicine [facility] Transplantation and Clinical Regeneration in [place], [place] [address] [place] [phone] Jessica Rousseau M.B.B.S. [address] [place] [phone] Scheduled Referrals Name Type Priority Associated Diagnoses [...] Total Score: 2 12/10/19 25 2:46 PM CUT OFF SAW OPERATOR METAL documented as of this encounter Care Teams Asphalt Distributor Operator Relationship Specialty Start Date End Date Renzo Andres M.D. [address] [place] [phone] PCP - General Family Medicine 04/25/23 documented as of this encounter
--- OUTSIDE RECORDS SUMMARY | 2025-07-19 18:08 | XMS_ITS | Encounter Summary ---
Author Organization [facility] Address [address] [place] [address] Care Team Providers Care Furnace Builder Name Role Phone Renzo Andres M.D. Primary Care Provider Encounter Details Date Type Department Care Team (Late st Contact Info) Description 10/25/2022 Orders Only RST CCM [address] [place] [phone] [facility], Provider, MD Screening Test Laboratory Social History [...] Assigned at Female 12/26/2018 8:37 PM BUSINESS BANKING SALES ASSISTANT Legal Sex Female 2:43 PM BUSINESS BANKING SALES ASSISTANT Gender Identity Female 12/26/2018 8:37 PM BUSINESS BANKING SALES ASSISTANT Sexual Orientation Choose not to disclose 2020 3:46 PM CDT documented as of this encounter Plan of Treatment Upcoming Encounters Date Type Department Care Team (Late st Contact Info) Description 07/21/2025 11:00 AM CDT Telemedicine Department of Palliative Care in [place], [place] [address] [place] [address] Meghan Osorio M.D. 200 [place] [address] 07/22/2025 8:40 AM CDT Lab Department of Laboratory Medicine and Pathology, [facility] in [place], [place] [address] [place] [phone] Becky Hernandez APRN C.N.P., D.N.P. [address] [place] [phone] 07/22/2025 9:30 AM CDT Office Visit [facility] for Transplantation and Clinical Regeneration in [place], [place] [address] [place] [phone] Becky Hernandez APRN, C.N.P., D.N.P. [address] [place] [phone] 07/30/2025 2:00 PM CDT Appointment Division of Gastroenterology in [place], [place] [address] [place] [phone] Derrick Cruz Jr., M.D., M.S. [address] [place] [phone] 08/11/2025 9:00 AM CDT Nurse Only Section of Infectious Diseases in [place], [place] [address] [place] [phone] Jessica Rousseau M.B.B.S. [address] [place] [phone] 08/11/2025 1:00 PM CDT Clinical Support Department of Palliative Care in [place], [place] [address] [place] [phone] Uma Aly APRN, Satnam.N.P., M.S.N. [address] [place] [phone] 08/13/2025 10:00 AM CDT Lab Department of Laboratory Medicine and Pathology, [facility], in [place], [place] [address] [place] [address] Jessica Rousseau M.B.B.S. [address] [place] [phone] 08/13/2025 10:30 AM CDT [facility] in [place], [place] [address] [place] [address] Jessica Rousseau M.B.B.S. [address] [place] [phone] 08/13/2025 11:00 AM CDT Nurse Only [facility] in [place], [place] [address] [place] [address] Jessica Rousseau M.B.B.S. [address] [place] [phone] 08/13/2025 11:30 AM CDT Office [facility] in [place], [place] [address] [place] [address] Jessica Rousseau M.B.B.S. [address] [place] [phone] 09/25/2025 10:30 AM BUSINESS BANKING SALES ASSISTANT Telemedicine Pedro [facility] in [place], [place] [address] [place] [address] Jessica Rousseau M.B.B.S. [address] [place] [phone] documented as of this encounter Visit Diagnoses Diagnosis Screening Test Laboratory documented in this encounter Additional Health Concerns Infection Onset Date Last Indicated Resolved Time COVID19 01/07/2023 01/07/2023 01/27/2023 5:15 AM BUSINESS BANKING SALES ASSISTANT Protective Environment 03/02/2023 03/02/2023 COVID19 Pending 12/04/2024 12/04/2024 12/04/2024 1 0:20 AM BUSINESS BANKING SALES ASSISTANT Assessment Noted Time PHQ-9 Depression Total Score: 11 022 10:21 AM CDT documented as of this encounter Care Teams Furnace Builder Relationship Specialty Start Date End Date Renzo Andres M.D. [address] [place] [phone] PCP - General Family Medicine 04/25/23 documented as of this encounter
--- OUTSIDE RECORDS SUMMARY | 2025-07-19 18:08 | XMS_ITS | Encounter Summary ---
Author Organization [facility] Address [address] [place] [address] Care Team Providers Care Down Filler Name Role Phone Renzo Andres M.D. Primary Care Provider Encounter Details Date Type Department Care Team (Late st Contact Info) Description 05/06/2009 Historical Ophthalmology RST OPH Reginald Peter O.D. [address] [place] [phone] Social History Tobacco Use Types Packs/Day Years Used Date Smoking Tobacco: Never Assessed Comments Unknown Sex and Gender Information Value Date Recorded Sex Assigned at Female 12/26/2018 8:37 PM DRY PAN CHARGER Legal Sex Female 2:43 PM DRY PAN CHARGER Gender Identity Female 12/26/2018 8:37 PM DRY PAN CHARGER Sexual Orientation Choose not to disclose 2020 [...] (hyperopic astigmatism). CDM Reports - EYEGEN Id: [id number] Status: Fnl documented in this encounter Plan of Treatment Upcoming Encounters Date Type Department Care Team (Late st Contact Info) Description 07/21/2025 11:00 AM CDT Telemedicine Department of Palliative Care in [place], [place] [address] [place] [phone] Meghan Osorio M.D. [address] [place] [phone] 07/22/2025 8:40 AM CDT Lab Department of Laboratory Medicine and Pathology, [facility], in [place], [place] [address] [place] [phone] Becky Hernandez APRN, C.N.P., D.N.P. [address] [place] [phone] 07/22/2025 9:30 AM CDT [facility] in [place], [place] [address] [place] [phone] Becky Hernandez APRN, C.N.P., D.N.P. [address] [place] [phone] 07/30/2025 2:00 PM CDT Appointment Division of Gastroenterology in [place], [place] [address] [place] [phone] Derrick Cruz Jr., M.D., M.S. [address] [place] [phone] 08/11/2025 9:00 AM CDT Nurse Only Section of Infectious Diseases in [place], [place] [address] [place] [address] Jessica Rousseau M.B.B.S. [address] [place] [phone] 08/11/2025 1:00 PM CDT Clinical Support Department of Palliative Care in [place], [place] [address] [place] [phone] Uma Aly APRN, C.N.P., M.S.N. [address] [place] [phone] 08/13/2025 10:00 AM CDT Lab Department of Laboratory Medicine and Pathology, [facility], in [place], [place] [address] [place] [address] Jessica Rousseau M.B.B.S. [address] [place] [phone] 08/13/2025 10:30 AM CDT Office [facility] Clinical Regeneration in [place], [place] [address] [place] [phone] Jessica Rousseau M.B.B.S. [address] [place] [phone] 08/13/2025 11:00 AM CDT Nurse Only Pedro Aravind sacnhez [facility] for Transplantation and Clinical Regeneration in [place], [place] [address] [place] [address] Jessica Rousseau M.B.B.S. [address] [place] [address] 08/13/2025 11:30 AM CDT [facility] in [place], [place] [address] [place] [address] Jessica Rousseau M.B.B.S. [address] [place] [phone] 09/25/2025 10:30 AM DRY PAN CHARGER Telemedicine [facility] Transplantation and Clinical Regeneration in [place], [place] [address] [place] [address] Jessica Rousseau M.B.B.S. [address] [place] [phone] documented as of this encounter Visit Diagnoses Not on filedocumented in this encounter Additional Health Concerns Infection Onset Date Last Indicated Resolved Time COVID19 Pending 04/20/2020 04/20/2020 04/23/2020 2 :28 AM CDT COVID19 Pending 07/07/2020 07/07/2020 07/07/2020 7 :12 PM CDT COVID19 Pending 03/15/2021 03/15/2021 03/16/2021 1 1:39 AM CDT COVID19 01/07/2023 01/07/2023 01/27/2023 5:15 AM DRY PAN CHARGER Protective Environment 03/02/2023 03/02/2023 COVID19 Pending 12/04/2024 12/04/2024 12/04/2024 1 0:20 AM DRY PAN CHARGER documented as of this encounter Care Teams Down Filler Relationship Specialty Start Date End Date Renzo Andres M.D. [address] [place] [phone] PCP - General Family Medicine 04/25/23 documented as of this encounter
--- OUTSIDE RECORDS SUMMARY | 2025-07-19 18:09 | XMS_ITS | Encounter Summary ---
Author Organization [facility] Address [address] [place] [address] Care Team Providers Care Poundmaster Name Role Phone Renzo Andres M.D. Primary Care Provider Encounter Details Date Type Department Care Team (Late st Contact Info) Description 06/08/2025 Orders Only [facility], [facility], Ninth Floor [address] [place] [address] Analia Carter, INTERNATIONAL TRADE MANAGER, C.N.P. [address] [place] [phone] Social History Tobacco Use Types Packs/Day Years [...] for daily living? No 06/24/2025 [facility] Utilities Answer Date Recorded In the past 12 months has th e electric, gas, oil, or water company threatened to shut off services in your home? No 06/24/2025 Depression Answer Date Recor ded PHQ-9 Total Score (max 27) 2 12/10 Housing Stability Answer Date Recorded What is your living situation today? I have a [facility] place to live 06/24/2025 Education Answer Date Recorded What is the highest level of school you have completed or the highest degree you have received? Some college, no degree 04/24/2019 Comments No Sex and Gender Information Value Date Recorded Sex Assigned at Female 12/26/2018 8:37 PM KICK PRESS OPERATOR Legal Sex Female 2:43 PM KICK PRESS OPERATOR Gender Identity Female 12/26/2018 8:37 PM KICK PRESS OPERATOR Sexual Orientation Choose not to disclose 2020 3:46 PM CDT documented as of this encounter Plan of Treatment Upcoming Encounters Date Type Department Care Team (Late st Contact Info) Description 07/21/2025 11:00 AM CDT Telemedicine Department of Palliative Care in [place], [place] 200 [place] [address] Meghan Osorio M.D. 200 [place] [address] 07/22/2025 8:40 AM CDT Lab Department of Laboratory Medicine and Pathology, [facility], in [place], [place] [address] [place] [phone] Becky Hernandez APRN C.N.P., D.N.P. [address] [place] [phone] 07/22/2025 9:30 AM CDT Office [facility] in [place], [place] [address] [place] [address] Becky Hernandez APRN, C.N.P., D.N.P. [address] [place] [phone] 07/30/2025 2:00 PM CDT Appointment Division of Gastroenterology in [place], [place] [address] [place] [phone] Derrick Cruz Jr., M.D., M.S. [address] [place] [phone] 08/11/2025 9:00 AM CDT Nurse Only Section of Infectious Diseases in [place], [place] [address] [place] [phone] Jessica Rousseau M.B.B.S. [address] [place] [phone] 08/11/2025 1:00 PM CDT Clinical Support Department of Palliative Care in [place], [place] [address] [place] [phone] Uma Aly APRN, Satnam.N.P., M.S.N. [address] [place] [phone] 08/13/2025 10:00 AM CDT Lab Department of Laboratory Medicine and Pathology, [facility], in [place], [place] [address] [place] [address] Jessica Rousseau M.B.B.S. [address] [place] [phone] 08/13/2025 10:30 AM CDT [facility] in [place], [place] [address] [place] [address] Jessica Rousseau M.B.B.S. [address] [place] [phone] 08/13/2025 11:00 AM CDT Nurse Only [facility] in [place], [place] [address] [place] [address] Jessica Rousseau M.B.B.S. [address] [place] [phone] 08/13/2025 11:30 AM CDT Office [facility] in [place], [place] [address] [place] [address] Jessica Rousseau M.B.B.S. [address] [place] [phone] 09/25/2025 10:30 AM KICK PRESS OPERATOR Telemedicine Pedro Lanza [facility] Trans[facility] Clinical [facility] in [place], [place] [address] [place] [address] Jessica Rousseau M.B.B.S. [address] [place] [phone] documented as of this encounter Visit Diagnoses Not on filedocumented in this encounter Additional Health Concerns Infection Onset Date Last Indicated Resolved Time Protective Environment 03/02/2023 03/02/2023 Assessment Noted Time PHQ-9 Depression Total Score: 2 12/10/19 25 2:46 PM KICK PRESS OPERATOR documented as of this encounter Care Teams Poundmaster Relationship Specialty Start Date End Date Renzo Andres M.D. [address] [place] [phone] PCP - General Family Medicine 04/25/23 documented as of this encounter
--- OUTSIDE RECORDS SUMMARY | 2025-07-19 18:09 | XMS_ITS | Encounter Summary ---
Author Organization [facility] Address [address] [place] [address] Care Team Providers Care Seasonal Retail Merchandiser Name Role Phone Renzo Andres M.D. Primary Care Provider Encounter Details Date Type Department Care Team (Late st Contact Info) Description 06/05/2025 Documentation [facility] in [place], [place] [address] [place] [phone] Jessica Avila APRN, C.N.P., M.S.N. [address] [place] [phone] Social History Tobacco Use Types Packs/Day Years Used Date Smoking Tobacco: Never Smokeless Tobacco: Never Alcohol Use Standard Drinks/Week Comments Yes 0 (1 standard drink = 0.6 oz pur e alcohol) social [facility] Utilities Answer Date Recorded In the past 12 months has e [employer], gas, oil, or water company threatened to [...] a [facility] to live 05/28/2025 Education Answer Date Recorded What is the highest level of school you have completed or the highest degree you have received? Some college, no degree 04/24/2019 Comments No Sex and Gender Information Value Date Recorded Sex Assigned at Female 12/26/2018 8:37 PM CARPET LAYER Legal Sex Female 2:43 PM CARPET LAYER Gender Identity Female 12/26/2018 8:37 PM CARPET LAYER Sexual Orientation Choose not to disclose 2020 [...] of Palliative Care in [place], [place] [address] [place] [phone] Meghan Osorio M.D. [address] [place] [phone] 07/22/2025 8:40 AM CDT Lab Department of Laboratory Medicine and Pathology, [facility], in [place], [place] [address] [place] [phone] Becky Hernandez APRN, C.N.P., D.N.P. [address] [place] [phone] 07/22/2025 9:30 AM CDT [facility] in [place], [place] [address] [place] [phone] Becky Hernandez APRN, C.N.P., D.N.P. [address] [place] [phone] 07/30/2025 2:00 PM CDT Appointment Division of Gastroenterology in [place], [place] [address] [place] [phone] Derrick Cruz Jr., M.D., M.S. [address] [place] [phone] 08/11/2025 9:00 AM CDT Nurse Only Section of Infectious Diseases in [place], [place] [address] [place] [phone] Jessica Rousseau M.B.B.S. [address] [place] [phone] 08/11/2025 1:00 PM CDT Clinical Support Department of Palliative Care in [place], [place] [address] [place] [phone] Uma Aly APRN, JamariNKatalinaP., M.S.N. [address] [place] [phone] 08/13/2025 10:00 AM CDT Lab Department of Laboratory Medicine and Pathology, [facility], in [place], [place] [address] [place] [phone] Jessica Rousseau M.B.B.S. [address] [place] [phone] 08/13/2025 10:30 AM CDT Office [facility] in [place], [place] [address] [place] [phone] Jessica Rousseau M.B.B.S. [address] [place] [phone] 08/13/2025 11:00 AM CDT Nurse Only Pedro Lanza laura [facility] Transplantation and Clinical Regeneration in [place], [place] [address] [place] [address] Jessica Rousseau M.B.B.S. [address] [place] [phone] 08/13/2025 11:30 AM CDT Office Visit Pedro [facility] Trans[facility] and Clinical [facility]eneration in [place], [place] [address] [place] [address] Jessica Rousseau M.B.B.S. [address] [place] [phone] 09/25/2025 10:30 AM CARPET LAYER Telemedicine [facility] Transplantation and Clinical Regeneration in [place], [place] [address] [place] [address] Jessica Rousseau M.B.B.S. [address] [place] [phone] documented as of this encounter Visit Diagnoses Not on filedocumented in this encounter Additional Health Concerns Infection Onset Date Last Indicated Resolved Time Protective Environment 03/02/2023 03/02/2023 Assessment Noted Time PHQ-9 Depression Total Score: 2 12/10/19 25 2:46 PM CARPET LAYER documented as of this encounter Care Teams Seasonal Retail Merchandiser Relationship Specialty Start Date End Date Renzo Andres M.D. [address] [place] [phone] PCP - General Family Medicine 04/25/23 documented as of this encounter
--- OUTSIDE RECORDS SUMMARY | 2025-07-19 18:09 | XMS_ITS | Encounter Summary ---
Author Organization [facility] Address [address] [place] [address] Care Team Providers Care Loan Closer Name Role Phone Renzo Andres M.D. Primary Care Provider Reason for Visit * Reason Onset Date Comments Chest Pain 06/14/2025 Encounter Details Date Type Department Care Team (Latest Contact Info) Description 06/14/2025 Clinical Communication Pedro [facility] [place] for Transplantation and Clinical Regeneration in [place], [place] [address] [place] [address] Cecile Hernandez RKatalinaNKatalina [address] [place] [phone] Chest Pain Social History Tobacco Use Types [...] things needed for daily living? No 06/12/2025 [facility] Utilities Answer Date Recorded In the past 12 months has th e electric, gas, oil, or water company threatened to shut off services in your home? No 06/12/2025 Depression Answer Date Recor ded PHQ-9 Total Score (max 27) 2 12/10 Housing Stability Answer Date Recorded What is your living situation today? I have a [facility] place to live 06/12/2025 Education Answer Date Recorded What is the highest level of school you have completed or the highest degree you have received? Some college, no degree 04/24/2019 Comments No Sex and Gender Information Value Date Recorded Sex Assigned at Female 12/26/2018 8:37 PM CLOSER ON Legal Sex Female 2:43 PM CLOSER ON Gender Identity Female 12/26/2018 8:37 PM CLOSER ON Sexual Orientation Choose not to disclose 2020 [...] her way home, driving, and had to wool puller because it was bad. PLAN I [...] CDT Telemedicine Department of Palliative Care in [address] [phone] Meghan Osorio M.D. [address] [place] [phone] 07/22/2025 8:40 AM CDT Lab Department of Laboratory Medicine and Pathology, [facility], in [place], [place] [address] [place] [phone] Becky Hernandez APRN, C.N.P., D.N.P. [address] [place] [phone] 07/22/2025 9:30 AM CDT Office [facility] in [place], [place] [address] [place] [phone] Becky Hernandez APRN, C.N.P., D.N.P. [address] [place] [phone] 07/30/2025 2:00 PM CDT Appointment Division of Gastroenterology in [place], [place] [address] [place] [phone] Derrick Cruz Jr., M.D., M.S. [address] [place] [phone] 08/11/2025 9:00 AM CDT Nurse Only Section of Infectious Diseases in [place], [place] [address] [place] [address] Jessica Rousseau M.B.B.S. [address] [place] [phone] 08/11/2025 1:00 PM CDT Clinical Support Department of Palliative Care in [place], [place] [address] [place] [phone] Uma Aly APRN, C.N.P., M.S.N. [address] [place] [phone] 08/13/2025 10:00 AM CDT Lab Department of Laboratory Medicine and Pathology, [facility], in [place], [place] [address] [place] [phone] Jessica Rousseau M.B.B.S. [address] [place] [phone] 08/13/2025 10:30 AM CDT Office [facility] in [place], [place] [address] [place] [phone] Jessica Rousseau M.B.B.S. [address] [place] [phone] 08/13/2025 11:00 AM CDT Nurse Only Pedro [facility]ravind [facility] Clinical Regeneration in [place], [place] [address] [place] [address] Jessica Rousseau M.B.B.S. [address] [place] [address] 08/13/2025 11:30 AM CDT Office [facility] in [place], [place] [address] [place] [address] Jessica Rousseau M.B.B.S. [address] [place] [phone] 09/25/2025 10:30 AM CLOSER ON Telemedicine [facility] Transplantation and Clinical Regeneration in [place], [place] [address] [place] [address] Jessica Rousseau M.B.B.S. [address] [place] [phone] documented as of this encounter Visit Diagnoses Not on filedocumented in this encounter Additional Health Concerns Infection Onset Date Last Indicated Resolved Time Protective Environment 03/02/2023 03/02/2023 Assessment Noted Time PHQ-9 Depression Total Score: 2 12/10/19 25 2:46 PM CLOSER ON documented as of this encounter Care Teams Loan Closer Relationship Specialty Start Date End Date Renzo Andres M.D. [address] [place] [phone] PCP - General Family Medicine 04/25/23 documented as of this encounter
--- OUTSIDE RECORDS SUMMARY | 2025-07-19 18:09 | XMS_ITS | Encounter Summary ---
Author Organization [facility] Address [address] [place] [address] Care Team Providers Care Nursery Nurse Name Role Phone Renzo Andres M.D. Primary Care Provider [phone] Reason for Referral * Specialty Diagnoses / Procedures Referred By Estefania acosta Referred To Contact Diagnoses Transplant Stem Cell (HCC) RST [facility] [address] [place] [address] Phone: tel: [facility] Referral ID Status Reason Start Date Expiration Date Visits Re quested Visits Authorized Scheduling Instructions Please schedule on 06/07 at noon BW,Exam Encounter Details Date Type Department Care Team (Late st Contact Info) Description 06/06/2025 Orders Only [facility], [facility], [facility], Ninth Floor [address] [place] [address] Romina Garsia, R.N. Transplant Stem [...] have a [facility] place to live 05/28/2025 Education Answer Date Recorded What is the highest level of school you have completed or the highest degree you have received? Some college, no degree 04/24/2019 Comments No Sex and Gender Information Value Date Recorded Sex Assigned at Female 12/26/2018 8:37 PM GERIATRICIAN Legal Sex Female 2:43 PM GERIATRICIAN Gender Identity Female 12/26/2018 8:37 PM GERIATRICIAN Sexual Orientation Choose not to disclose 2020 3:46 PM CDT documented as of this encounter Plan of Treatment Upcoming Encounters Date Type Department Care Team (Late st Contact Info) Description 07/21/2025 11:00 AM CDT Telemedicine Department of Palliative Care in [place], [place] [address] [place] [phone] Meghan Osorio M.D. [address] [place] [phone] 07/22/2025 8:40 AM CDT Lab Department of Laboratory Medicine and Pathology, [facility] in [place], [place] [address] [place] [phone] Becky Hernandez APRN, C.N.P., D.N.P. [address] [place] [phone] 07/22/2025 9:30 AM CDT Office Visit [facility] Aravind [facility] for Transplantation and Clinical Regeneration in [place], [place] [address] [place] [phone] Becky Hernandez APRN, C.N.P., D.N.P. [address] [place] [phone] 07/30/2025 2:00 PM CDT Appointment Division of Gastroenterology in [place], [place] [address] [place] [phone] Derrick Cruz Jr., M.D., M.S. [address] [place] [phone] 08/11/2025 9:00 AM CDT Nurse Only Section of Infectious Diseases in [place], [place] [address] [place] [phone] Jessica Rousseau M.B.B.S. [address] [place] [phone] 08/11/2025 1:00 PM CDT Clinical Support Department of Palliative Care in [place], [place] [address] [place] [address] Uma Aly APRN, C.NKatalinaP., M.S.N. [address] [place] [phone] 08/13/2025 10:00 AM CDT Lab Department of Laboratory Medicine and Pathology, [facility] in [place], [place] [address] [place] [address] Jessica Rousseau M.B.B.S. [address] [place] [phone] 08/13/2025 10:30 AM CDT [facility] in [place], [place] [address] [place] [address] Jessica Rousseau M.B.B.S. [address] [place] [phone] 08/13/2025 11:00 AM CDT Nurse Only [facility] in [place], [place] [address] [place] [address] Jessica Rousseau M.B.B.S. [address] [place] [phone] 08/13/2025 11:30 AM CDT [facility] in [place], [place] [address] [place] [address] Jessica Rousseau M.B.B.S. [address] [place] [phone] 09/25/2025 10:30 AM GERIATRICIAN Telemedicine Pedro sanchez [facility] for Transplantation and Clinical Regeneration in [place], [place] [address] [place] [address] Jessica Rousseau M.B.B.S. [address] [place] [address] Scheduled Referrals Name Type Priority Associated Diagnoses [...] Total Score: 2 12/10/19 25 2:46 PM GERIATRICIAN documented as of this encounter Care Teams Nursery Nurse Relationship Specialty Start Date End Date Renzo Andres M.D. NPAmanda: [phone] [address] [place] [phone] PCP - General Family Medicine 04/25/23 documented as of this encounter
--- OUTSIDE RECORDS SUMMARY | 2025-07-19 18:09 | XMS_ITS | Encounter Summary ---
Author Organization [facility] Address [address] [place] [address] Care Team Providers Care Respiratory Therapist Assistant Name Role Phone Renzo Andres M.D. Primary Care Provider Encounter Details Date Type Department Care Team (Late st Contact Info) Description 06/13/2025 Orders Only [facility], Ninth Floor [address] [place] [address] Analia Carter, BOAT DRIVER, C.N.P. 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 No 06/24/2025 [facility] Utilities Answer Date Recorded In the past 12 months has e electric, gas, oil, or water [employer] threatened to shut off services in your home? No 06/24/2025 Depression Answer Date Recor ded PHQ-9 Total Score (max 27) 2 12/10 Housing Stability Answer Date Recorded What is your living situation today? I have a [facility] place to live 06/24/2025 Education Answer Date Recorded What is the highest level of school you have completed or the highest degree you have received? Some college, no degree 04/24/2019 Comments No Sex and Gender Information Value Date Recorded Sex Assigned at Female 12/26/2018 8:37 PM BIT SANDER Legal Sex Female 2:43 PM BIT SANDER Gender Identity Female 12/26/2018 8:37 PM BIT SANDER Sexual Orientation Choose not to disclose 2020 3:46 PM CDT documented as of this encounter Plan of Treatment Upcoming Encounters Date Type Department Care Team (Late st Contact Info) Description 07/21/2025 11:00 AM CDT Telemedicine Department of Palliative Care in [place], [place] [address] [place] [address] Meghan Osorio M.D. [address] [place] [address] 07/22/2025 8:40 AM CDT Lab Department of Laboratory Medicine and Pathology, [facility], in [place], [place] [address] [place] [address] Becky Hernandez APRN C.N.P., D.N.P. [address] [place] [phone] 07/22/2025 9:30 AM CDT Office Visit [facility] Clinical [facility] in [place], [place] [address] [place] [phone] Becky Hernandez APRN, C.N.P., D.N.P. [address] [place] [phone] 07/30/2025 2:00 PM CDT Appointment Division of Gastroenterology in [place], [place] [address] [place] [phone] Derrick Cruz Jr., M.D., M.S. [address] [place] [phone] 08/11/2025 9:00 AM CDT Nurse Only Section of Infectious Diseases in [place], [place] [address] [place] [phone] Jessica Rousseau M.B.B.S. [address] [place] [phone] 08/11/2025 1:00 PM CDT Clinical Support Department of Palliative Care in [place], [place] [address] [place] [phone] Uma Aly APRN, C.N.P., M.S.N. [address] [place] [phone] 08/13/2025 10:00 AM CDT Lab Department of Laboratory Medicine and Pathology, [facility], in [place], [place] [address] [place] [address] Jessica Rousseau M.B.B.S. [address] [place] [phone] 08/13/2025 10:30 AM CDT [facility] in [place], [place] [address] [place] [address] Jessica Rousseau M.B.B.S. [address] [place] [phone] 08/13/2025 11:00 AM CDT Nurse Only [facility] in [place], [place] [address] [place] [address] Jessica Rousseau M.B.B.S. [address] [place] [phone] 08/13/2025 11:30 AM CDT Office [facility] in [place], [place] [address] [place] [address] Jessica Rousseau M.B.B.S. [address] [place] [phone] 09/25/2025 10:30 AM BIT SANDER Telemedicine [facility] in [place], [place] [address] [place] [address] Jessica Rousseau M.B.B.S. 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 [address] [place] [phone] PCP - General Family Medicine 04/25/23 documented as of this encounter
--- OUTSIDE RECORDS SUMMARY | 2025-07-19 18:09 | XMS_ITS | Encounter Summary ---
Author Organization [facility] Address [address] [place] [address] Care Team Providers Care Carpenter Bridge Name Role Phone Renzo Andres M.D. Primary Care Provider Reason for Referral * Outpatient (Routine) - Closed Specialty Diagnoses / Procedures Referred By Estefania acosta Referred To Contact Diagnoses Transplant Stem Cell (HCC) Pain Pleuritic Chest Procedures ECG 12 Lead MT EKG 12 LEAD W I&R Analia Carter APRN, C.N.P. [address] [place] [phone] Phone: tel: fax: [facility] Referral ID Status Reason Start Date Expiration Date Visits Re quested Visits Authorized [id number] Closed 06/06/2025 09/06/2026 1 1 Encounter Details Date Type Department Care Team (Late st Contact Info) Description 06/06/2025 Orders Only [facility], [facility], Ninth Floor [address] [place] [phone] Analia Carter APRN, C.N.P. [address] [place] [phone] Transplant Stem Cell (HCC) (Primary Dx); Pain [...] things needed for daily living? No 06/12/2025 [facility] Utilities Answer Date Recorded In the past 12 months has [facility] electric, gas, oil, or water company threatened to shut off services in your home? No 06/12/2025 Depression Answer Date Recor ded PHQ-9 Total Score (max 27) 2 12/10 Housing Stability Answer Date Recorded What is your living situation today? I have a [facility] place to live 06/12/2025 Education Answer Date Recorded What is the highest level of school you have completed or the highest degree you have received? Some college, no degree 04/24/2019 Comments No Sex and Gender Information Value Date Recorded Sex Assigned at Female 12/26/2018 8:37 PM ASSISTANT STORE MANAGER Legal Sex Female 2:43 PM ASSISTANT STORE MANAGER Gender Identity Female 12/26/2018 8:37 PM ASSISTANT STORE MANAGER Sexual Orientation Choose not to disclose [...] Telemedicine Department of Palliative Care in [place], [place] [address] [place] [phone] Meghan Osorio M.D. [address] [place] [phone] 07/22/2025 8:40 AM CDT Lab Department of Laboratory Medicine and Pathology, [facility] in [place], [place] [address] [place] [phone] Becky Hernandez APRN C.N.P., D.N.P. [address] [place] [phone] 07/22/2025 9:30 AM CDT Office Visit [facility] in [place], [place] [address] [place] [phone] Becky Hernandez APRN, C.N.P., D.N.P. [address] [place] [phone] 07/30/2025 2:00 PM CDT Appointment Division of Gastroenterology in [place], [place] [address] [place] [phone] Derrick Cruz Jr., M.D., M.S. [address] [place] [phone] 08/11/2025 9:00 AM CDT Nurse Only Section of Infectious Diseases in [place], [place] [address] [place] [phone] Jessica Rousseau M.B.B.S. [address] [place] [phone] 08/11/2025 1:00 PM CDT Clinical Support Department of Palliative Care in [place], [place] [address] [place] [address] Uma Aly APRN, C.N.P., M.S.N. [address] [place] [phone] 08/13/2025 10:00 AM CDT Lab Department of Laboratory Medicine and Pathology, [facility] in [place], [place] [address] [place] [address] Jessica Rousseau M.B.B.S. [address] [place] [phone] 08/13/2025 10:30 AM CDT Office Visit Pedro Lanza laura [facility] for Transplantation and Clinical Regeneration in [place], [place] [address] [place] [address] Jessica Rousseau M.B.B.S. [address] [place] [phone] 08/13/2025 11:00 AM CDT Nurse Only [facility] in [place], [place] [address] [place] [address] Jessica Rousseau M.B.B.S. [address] [place] [phone] 08/13/2025 11:30 AM CDT Office [facility] in [place], [place] [address] [place] [address] Jessica Rousseau M.B.B.S. [address] [place] [phone] 09/25/2025 10:30 AM ASSISTANT STORE MANAGER Telemedicine [facility] in [place], [place] [address] [place] [address] Jessica Rousseau M.B.B.S. [address] [place] [address] documented as of this encounter Results * ECG 12 Lead (06/07/2025 12:15 PM CDT) Ventricular Rate ECG/Min 86 BPM MUSE MT Interval 172 ms MUSE QRSD Interval 78 ms MUSE QT Interval 350 ms MUSE QTC Interval 418 ms MUSE P [place] 55 degrees MUSE R [place] 11 degrees MUSE T Wave [place] 38 degrees MUSE 06/07/2025 12:1 5 PM [...] BLOOD ADD-ON Final Result Performing Organization Address City/[facility] [[email or web address]] Co de Phone Number [facility] [address] [place] [phone], [facility] 200 [place] [address] * NT-Pro B-Type Natriuretic Peptide (BNP) (06/07/2025 [...] BLOOD ADD-ON Final Result Performing Organization Address [facility] [[email or web address]] Co de Phone Number [facility] [address] [place] [address], [facility] 200 [place] [address] * Troponin T, 5th Generation (06/07/2025 12:12 PM CDT) Troponin T, 5th gen <6 <=10 ng/L 06/07/2025 1:04 PM CDT DTL Blood (Blood, Venous) 06/07/2025 12:12 PM CDT 06/07/2025 12:19 PM CDT Analia Gamez APRN, C.N.P. LAB BLOOD ADD-ON Final Result Performing Organization Address City/[facility]/[place] [address] * Magnesium (06/07/2025 12:12 PM CDT) Magnesium, S 2.2 1.7 - 2.3 mg/dL 06/07/2025 2:36 PM CDT DTL Blood (Blood, Venous) 06/07/2025 12:12 PM CDT 06/07/2025 12:19 PM CDT Analia Gamez APRN, C.N.P. LAB BLOOD ADD-ON Final Result Performing Organization Address [facility] [[email or web address]] [place] [address], [place] [address] * (ABNORMAL) Comprehensive Metabolic Panel (06/07/2025 12:12 [...] APRN, C.N.P. LAB BLOOD ADD-ON Final Result [facility] [address] [place] [address], [facility] [address] [place] [address] * (ABNORMAL) CBC no call back, reflex [...] C.N.P. LAB BLOOD NON ADD-ON Final Result [facility] [address] [place] [address], [place] DTL [facility] [address] [place] [address] DHPM [facility] [address] [place] [address] documented in this encounter Visit Diagnoses Diagnosis [...] Total Score: 2 12/10/19 25 2:46 PM ASSISTANT STORE MANAGER documented as of this encounter Care Teams Carpenter Bridge Relationship Specialty Start Date End Date Renzo Andres M.D. [address] [place] [phone] PCP - General Family Medicine 04/25/23 documented as of this encounter
--- OUTSIDE RECORDS SUMMARY | 2025-07-19 18:09 | XMS_ITS | Encounter Summary ---
Author Organization [facility] Address [address] [place] [address] Care Team Providers Care Database Programmer Name Role Phone Renzo Andres M.D. 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 [address] [place] [address] Phone: tel: fax: [facility] Referral ID Status Reason Start Date Expiration Date Visits Re quested Visits Authorized [id number] Closed 06/05/2025 09/05/2026 1 1 Reason for Visit * Reason Onset Date Comments Phone Contact 06/05/2025 CT Results Encounter Details Date Type Department Care Team (Latest Contact Info) Description 06/05/2025 Clinical Communication Pedro Fatima [place] [facility] in [place], [place] [address] [place] [address] Jessica Rousseau M.B.B.S. [address] [place] [address] Phone Contact (CT Results) Social History Tobacco [...] for daily living? No 07/02/[address] [facility] Utilities Answer Date Recorded In the past 12 months has [facility] electric, gas, oil, or water company threatened to shut off services in your home? No 07/02/2025 Depression Answer Date Recor ded PHQ-9 Total Score (max 27) 2 12/10 Housing Stability Answer Date Recorded What is your living situation today? [facility] 07/02/2025 Education Answer Date Recorded What is the highest level of school you have completed or the highest degree you have received? Some college, no degree 04/24/2019 Comments No Sex and Gender Information Value Date Recorded Sex Assigned at Female 12/26/2018 8:37 PM LIVESTOCK COUNTER Legal Sex Female 2:43 PM LIVESTOCK COUNTER Gender Identity Female 12/26/2018 8:37 PM LIVESTOCK COUNTER Sexual Orientation Choose not to disclose 2020 3:46 PM CDT documented as of this encounter Plan of Treatment Upcoming Encounters Date Type Department Care Team (Late st Contact Info) Description 07/21/2025 11:00 AM CDT Telemedicine Department of Palliative Care in [place], [place] [address] [place] [phone] Meghan Osorio M.D. [address] [place] [phone] 07/22/2025 8:40 AM CDT Lab Department of Laboratory Medicine and Pathology, [facility] in [place], [place] [address] [place] [phone] Becky Hernandez APRN, C.N.P., D.N.P. [address] [place] [phone] 07/22/2025 9:30 AM CDT Office [facility] in [place], [place] [address] [place] [phone] Becky Hernandez APRN, C.N.P., D.N.P. [address] [place] [phone] 07/30/2025 2:00 PM CDT Appointment Division of Gastroenterology in [address] [phone] Derrick Cruz Jr., M.D., M.S. [address] [place] [phone] 08/11/2025 9:00 AM CDT Nurse Only Section of Infectious Diseases in [place], [place] [address] [place] [address] Jessica Rousseau M.B.B.S. [address] [place] [phone] 08/11/2025 1:00 PM CDT Clinical Support Department of Palliative Care in [place], [place] [address] [place] [address] Uma Aly APRN, C.N.P., M.S.N. [address] [place] [phone] 08/13/2025 10:00 AM CDT Lab Department of Laboratory Medicine and Pathology, [facility] in [place], [place] [address] [place] [address] Jessica Rousseau M.B.B.S. [address] [place] [phone] 08/13/2025 10:30 AM CDT Office Visit Pedro sanchez [facility] for Transplantation and Clinical Regeneration in [place], [place] [address] [place] [address] Jessica Rousseau M.B.B.S. [address] [place] [phone] 08/13/2025 11:00 AM CDT Nurse Only [facility] for Transplantation and Clinical Regeneration in [place], [place] [address] [place] [address] Jessica Rousseau M.B.B.S. [address] [place] [phone] 08/13/2025 11:30 AM CDT Office Visit [facility] Transplantation and Clinical Regeneration in [place], [place] [address] [place] [address] Jessica Rousseau M.B.B.S. [address] [place] [address] 09/25/2025 10:30 AM LIVESTOCK COUNTER Telemedicine [facility] Transplantation and Clinical Regeneration in [place], [place] [address] [place] [address] Jessica Rousseau M.B.B.S. 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 [address] [place] [phone] PCP - General Family Medicine 04/25/23 documented as of this encounter
[2025-07-19 18:10] LABS: D Dimer Quantitative* < 0.27 ug/ml (0.00-0.50)
--- OUTSIDE RECORDS SUMMARY | 2025-07-19 18:10 | XMS_ITS | Encounter Summary ---
Author Organization [facility] Address [address] [place] [address] Care Team Providers Care Payroll Assistant Name Role Phone Renzo Andres M.D. Primary Care Provider [phone] Encounter Details Date Type Department Care Team (Late st Contact Info) Description 05/28/2025 Orders Only [facility], [facility], Ninth Floor [address] [place] [phone] Giselle Jean RKatalinaNKatalina Transplant Stem Cell (HCC) [...] needed for daily living? No 06/12/2025 [facility] Utilities Answer Date [...] a [facility] to live 06/12/2025 Education Answer Date Recorded What is the highest level of school you have completed or the highest degree you have received? Some college, no degree 04/24/2019 Comments No Sex and Gender Information Value Date Recorded Sex Assigned at Female 12/26/2018 8:37 PM PROCUREMENT SPECIALIST Legal Sex Female 2:43 PM PROCUREMENT SPECIALIST Gender Identity Female 12/26/2018 8:37 PM PROCUREMENT SPECIALIST Sexual Orientation Choose not to disclose 2020 3:46 PM CDT documented as of this encounter Plan of Treatment Upcoming Encounters Date Type Department Care Team (Late st Contact Info) Description 07/21/2025 11:00 AM CDT Telemedicine Department of Palliative Care in [place], [place] 200 [place] [address] Meghan Osorio M.D. 200 [place] [address] 07/22/2025 8:40 AM CDT Lab Department of Laboratory Medicine and Pathology, [facility] in [place], [place] [address] [place] [address] Becky Hernandez APRN, C.N.PKatalina, D.N.P. [address] [place] [phone] 07/22/2025 9:30 AM CDT Office Visit [facility] Aravind [facility] for Transplantation and Clinical Regeneration in [place], [place] [address] [place] [address] Becky Hernandez APRN, C.N.Jean., D.N.P. [address] [place] [phone] 07/30/2025 2:00 PM CDT Appointment Division of Gastroenterology in [place], [place] [address] [place] [address] Derrick Cruz Jr., M.D., M.S. [address] [place] [phone] 08/11/2025 9:00 AM CDT Nurse Only Section of Infectious Diseases in [place], [place] [address] [place] [phone] Jessica Rousseau M.B.B.S. [address] [place] [phone] 08/11/2025 1:00 PM CDT Clinical Support Department of Palliative Care in [place], [place] [address] [place] [address] Uma Aly APRN, C.N.P., M.S.N. [address] [place] [phone] 08/13/2025 10:00 AM CDT Lab Department of Laboratory Medicine and Pathology, [facility], in [place], [place] [address] [place] [address] Jessica Rousseau M.B.B.S. [address] [place] [phone] 08/13/2025 10:30 AM CDT [facility] in [place], [place] [address] [place] [address] Jessica Rousseau M.B.B.S. [address] [place] [phone] 08/13/2025 11:00 AM CDT Nurse Only Pedro Fatima [facility] Transplantation and Clinical Regeneration in [place], [place] [address] [place] [address] Jessica Rousseau M.B.B.S. [address] [place] [phone] 08/13/2025 11:30 AM CDT Office [facility] Trans[facility] Clinical [facility] in [place], [place] [address] [place] [address] Jessica Rousseau M.B.B.S. [address] [place] [phone] 09/25/2025 10:30 AM PROCUREMENT SPECIALIST Telemedicine Pedro [facility] Trans[facility] and Clinical Regeneration in [place], [place] [address] [place] [address] Jessica Rousseau M.B.B.S. [address] [place] [phone] documented as of this encounter Visit Diagnoses Diagnosis Transplant Stem Cell (HCC)- Primary documented in this encounter Additional Health Concerns Infection Onset Date Last Indicated Resolved Time Protective Environment 03/02/2023 03/02/2023 Assessment Noted Time PHQ-9 Depression Total Score: 2 12/10/19 25 2:46 PM PROCUREMENT SPECIALIST documented as of this encounter Care Teams Payroll Assistant Relationship Specialty Start Date End Date Renzo Andres M.D. [address] [place] [phone] PCP - General Family Medicine 04/25/23 documented as of this encounter
--- OUTSIDE RECORDS SUMMARY | 2025-07-19 18:10 | XMS_ITS | Encounter Summary ---
Author Organization [facility] Address [address] [place] [address] Care Team Providers Care Retail Grocer Name Role Phone Renzo Andres M.D. Primary Care Provider Reason for Visit * Reason Onset Date Comments 06/25 appts 05/20/2025 Encounter Details Date Type Department Care Team (Latest Contact Info) Description 05/20/2025 Clinical Communication [facility] [place], [place] [address] [place] [address] Jessica Rousseau M.B.B.S. [address] [place] [address] 06/25 appts Social History Tobacco Use Types [...] things needed for daily living? No 06/12/2025 [facility] Utilities Answer Date [...] Sex Assigned at Female 12/26/2018 8:37 PM GUTTER HANGER Legal Sex Female 2:43 PM GUTTER HANGER Gender Identity Female 12/26/2018 8:37 PM GUTTER HANGER Sexual Orientation Choose not to disclose 2020 3:46 PM CDT documented as of this encounter Plan of Treatment Upcoming Encounters Date Type Department Care Team (Late st Contact Info) Description 07/21/2025 11:00 AM CDT Telemedicine Department of Palliative Care in [place], [place] [address] [place] [address] Meghan Osorio M.D. [address] [place] [address] 07/22/2025 8:40 AM CDT Lab Department of Laboratory Medicine and Pathology, [facility], in [place], [place] [address] [place] [phone] Becky Hernandez APRN, C.N.P., D.N.P. [address] [place] [phone] 07/22/2025 9:30 AM CDT Office Visit [facility] in [place], [place] [address] [place] [phone] Becky Hernandez APRN, C.N.P., D.N.P. [address] [place] [phone] 07/30/2025 2:00 PM CDT Appointment Division of Gastroenterology in [place], [place] [address] [place] [phone] Derrick Cruz Jr., M.D., M.S. [address] [place] [phone] 08/11/2025 9:00 AM CDT Nurse Only Section of Infectious Diseases in [place], [place] [address] [place] [phone] Jessica Rousseau M.B.B.S. [address] [place] [phone] 08/11/2025 1:00 PM CDT Clinical Support Department of Palliative Care in [place], [place] [address] [place] [phone] Uma Aly APRN, C.N.P., M.S.N. [address] [place] [phone] 08/13/2025 10:00 AM CDT Lab Department of Laboratory Medicine and Pathology, [facility], in [place], [place] [address] [place] [address] Jessica Rousseau M.B.B.S. [address] [place] [phone] 08/13/2025 10:30 AM CDT [facility] [place], [place] [address] [place] [address] Jessica Rousseau M.B.B.S. [address] [place] [phone] 08/13/2025 11:00 AM CDT Nurse Only [facility] in [place], [place] [address] [place] [address] Jessica Rousseau M.B.B.S. [address] [place] [phone] 08/13/2025 11:30 AM CDT [facility] [place], [place] [address] [place] [address] Jessica Rousseau M.B.B.S. [address] [place] [phone] 09/25/2025 10:30 AM GUTTER HANGER Telemedicine [facility] in [place], [place] [address] [place] [address] Jessica Rousseau M.B.B.S. [address] [place] [phone] documented as of this encounter Visit Diagnoses Not on filedocumented in this encounter Additional Health Concerns Infection Onset Date Last Indicated Resolved Time Protective Environment 03/02/2023 03/02/2023 Assessment Noted Time PHQ-9 Depression Total Score: 2 12/10/19 25 2:46 PM GUTTER HANGER documented as of this encounter Care Teams Retail Grocer Relationship Specialty Start Date End Date Renzo Andres M.D. [address] [place] [phone] PCP - General Family Medicine 04/25/23 documented as of this encounter
--- OUTSIDE RECORDS SUMMARY | 2025-07-19 18:10 | XMS_ITS ---
Author Organization [facility] Address [address] [place] [address] Care Team Providers Care Civil Engineering Technician Name Role Phone Renzo Andres M.D. Primary Care Provider [phone] Active Problems * This document contains information received from the source organization and may not represent a complete record from that organization. Patient Care Coordination No te Formatting of this note is d ifferent from the original. Survivorship and Health Maintenance Testing initiated at Day +100 timeframe, then repeated annually as needed: Bone Marrow Biopsy: 06/15/25 Sort Chimerism: 06/25/25 BCR/ABL 02/18/25 PFTs: 03/23/25 DEXA scan: 03/20/25 Vitamin Lipid Panel: 07/06/25 TSH: 03/24/25 Ferritin: 03/24/25 Hgb A1C: 03/24/25 Colonoscopy/Cologuard: PAP: Mammogram: Dental: Eye: Dermatology: Immunization Education Visit (Day 100): 03/30/25 Immunizations: Diphtheria/Tetanus/Pertussis (DTaP) 06/10/25 X Hepatitis A (Hep A) 06/10/25 X X Hepatitis B (Hep B, dialysis formulation) 06/10/25 X Haemophilus influenzae type B (HiB) 06/10/25 X Meningococcal 4 valent MCV4 (Menveo or Menquadfi) 06/10/25 X X Meningococcal B vaccine (Bexsero - if patient is age 10-25) NA NA X X Pneumonia vaccine (PCV20) 06/10/25 Polio (IPV) 06/10/25 X Shingles (Shingrix) 06/10/25 X X Human Papillomavirus (if younger than 45 years old) X Influenza: COVID series: RSV: MMR: Local Lab/Provider: Dr. Ermelinda Avitia [address] [address] Problem Noted Date Diagnosed Date Pain Left Lower Quadrant 07/02/2025 Abdominal Pain 06/12/2025 Nausea And Vomiting 05/28/2025 [...] Therapy Complete Tiffani Leroy APRN C.N.P., D.N.P. Conditional Blood Orders RBC Plan [...] (Fludara) IVPB (Fludara) Therapy Complete Jessica Rousseau M.BKatalinaB.S. 1 of 1 cycle started Imatinib ( Myeloid-Myelopro liferative ) 9 07/14/2019 imatinib (Gleevec) Therapy Complete Tone Fagan M.B.B.S. 1 of 6 cycles planned Hematology / Oncology Treatment 2 Plan Name Start Date Discontinue Date Treatment Medications Discontinue Reason Plan Provider Cycles GVHD Prophylaxis: Post-transplant cycloPHOSphamide / Mesna / Mycophenolate / Tacrolimus 12/09/19 25 04/22/2025 cycloPHOSphamide (Cytoxan) IVPB in 350 mL (1 g vial) (Cytoxan)mesna (Mesnex) IVPB (24 HOURS) (Mesnex) Therapy Complete Jessica Rousseau M.BKatalinaB.S. 1 (2 of 2 cycles) started GVHD Prophylaxis: Post-transplant cycloPHOSphamide / Mesna / Tacrolimus / Abatacept 12/09/19 25 12/02/2024 cycloPHOSphamide (Cytoxan) Unlisted Jessica Rousseau M.B.B.S. Treatment not started Infusion Therapy 1 Plan [...] Complete Carlee Armas APRN C.N.P., D.N.P., M.S.N. electrolyte administration 01/13/2025 01/13/2025 No medications scheduled. Therapy Complete Carlee Armas APRN, C.N.P., D.N.P., M.S.N. pentamidine (NEBUPENT) Inhaled 12/08/2024 12/31/2024 No medications scheduled. Therapy Complete Jessica Rousseau M.B.B.SKatalina LEUPROLIDE (LUPRON) 07/14/2019 07/07/2020 No medic ations scheduled. Therapy Complete Stefan Thapa APRN, C.N.P. LEUPROLIDE (LUPRON) AT INFUSION CENTER & LEUPROLIDE (LUPRON) 03/25/2019 06/24/2019 No medications scheduled. Therapy Complete Stefan Thapa APRN, C.N.P. Infusion Therapy 3 Plan Name Start Date Discontinue Date Treatment Medications Discontinue Reason Plan Provider electrolyte administration 01/13/2025 01/13/2025 No medications scheduled. Therapy Complete Carlee Armas APRN C.N.P., D.N.P., M.S.N. 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); Transplant Bone Marrow Allogeneic (HCC) 06/23/2025 Nurse Visit TXP BMT Canceled (Clini c: Request) 06/25/2025 Appointment TXP BMT - Soham, A Canceled (Clinic: Earlier Appointment) 06/30/2025 Appointment TXP BMT - Soham, A Transplan t Bone Marrow Allogeneic (HCC) (Primary Dx) 07/07/2025 Appointment TXP BMT - Soham, A Canceled (Clinic: Request) 07/11/2025 Hydration Therapy TXP BMT - Soham, A Leuk emia 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); Transplant Stem Cell (HCC); Abnormal Finding Of Blood Chemistry Unspecified 07/22/2025 Appointment TXP BMT 08/13/2025 Appointment TXP BMT - Soham, A Lifetime Dose Tracking * Chemical Lifetime Dose Automatic Entry Manual Entr y Radiation 8.93 mGy 8.93 mGy 0 mGy Fluoro Time 1.5 minutes 1.5 minutes 0 minutes Resolved Problems Problem Noted Date Diagnosed Date Resolved Date Mucositis 12/19/2024 05/28/2025 Encounter Admission For Chemotherapy 12/12/2024 12/15/2024 Pain Bone 09/20/2020 12/10/2024 Pain Epigastric 10/01/2019 12/10/2024 Gastroesophageal Reflux Disease 04/16/2019 09/17/2019 Sore Throat Chronic 04/08/2019 09/17/20 Localized Enlarged Lymph Nodes 04/03/2019 12/10/2024 Pain In Joint 03/06/2019 12/10/2024 Anemia 12/17/2018 09/17/2019 Thrombocytosis Unspecified 12/17/2018 0 04/03/2019 Leukocytosis 12/17/2018 04/03/2019 Leukemia Myeloid Chronic BCR /ABL Positive Not Having Achieved Remission 12/12/2018 09/17/2019 Depression Anxiety 12/12/2018 4 Constipation 12/12/2018 09/17/2019 Counseling Fertility Preserv ation Pre Cancer Therapy 12/12/2018 09/17/2019
--- OUTSIDE RECORDS SUMMARY | 2025-07-19 18:10 | XMS_ITS | Encounter Summary ---
Author Organization [facility] Address [address] [place] [address] Care Team Providers Care Certified Medication Aide Name Role Phone Renzo Andres M.D. [...] things needed for daily living? No 06/12/2025 [facility] Utilities Answer Date Recorded In the past 12 months has th [employer] electric, gas, oil, or water company threatened to shut off services in your home? No 06/12/2025 Depression Answer Date Recor ded PHQ-9 Total Score (max 27) 2 12/10 Housing Stability Answer Date Recorded What is your living situation today? I have a [facility] place to live 06/12/2025 Education Answer Date Recorded What is the highest level of school you have completed or the highest degree you have received? Some college, no degree 04/24/2019 Comments No Sex and Gender Information Value Date Recorded Sex Assigned at Female 12/26/2018 8:37 PM HOMELAND SECURITY PROGRAM SPECIALIST Legal Sex Female 2:43 PM HOMELAND SECURITY PROGRAM SPECIALIST Gender Identity Female 12/26/2018 8:37 PM HOMELAND SECURITY PROGRAM SPECIALIST Sexual Orientation Choose not to disclose 2020 3:46 PM CDT documented as of this encounter Plan of Treatment Upcoming Encounters Date Type Department Care Team (Late st Contact Info) Description 07/21/2025 11:00 AM CDT Telemedicine Department of Palliative Care in [place], [place] [address] [place] [phone] Meghan Osorio M.D. [address] [place] [phone] 07/22/2025 8:40 AM CDT Lab Department of Laboratory Medicine and Pathology, [facility], in [place], [place] [address] [place] [phone] Becky Hernandez APRN, C.N.P., D.N.P. [address] [place], [place] [phone] 07/22/2025 9:30 AM CDT Office Visit Pedro sanchez [facility] for Transplantation and Clinical Regeneration in [place], [place] [address] [place] [address] Becky Hernandez APRN, C.N.P., D.N.P. [address] [place] [phone] 07/30/2025 2:00 PM CDT Appointment Division of Gastroenterology in [place], [place] [address] [place] [phone] Derrick Cruz Jr., M.D., M.S. [address] [place] [phone] 08/11/2025 9:00 AM CDT Nurse Only Section of Infectious Diseases in [place], [place] [address] [place] [phone] Jessica Rousseau M.B.B.S. [address] [place] [phone] 08/11/2025 1:00 PM CDT Clinical Support Department of Palliative Care in [place], [place] [address] [place] [phone] Uma Aly APRN, C.N.P., M.S.N. [address] [place] [phone] 08/13/2025 10:00 AM CDT Lab Department of Laboratory Medicine and Pathology, [facility], in [place], [place] [address] [place] [address] Jessica Rousseau M.B.B.S. [address] [place] [phone] 08/13/2025 10:30 AM CDT Office Visit [facility] [place] Transplantation and Clinical Regeneration in [place], [place] [address] [place] [address] Jessica Rousseau M.B.B.S. [address] [place] [phone] 08/13/2025 11:00 AM CDT Nurse Only [facility] [place], [facility] Transplantation and Clinical Regeneration in [place], [place] [address] [place] [address] Jessica Rousseau M.B.B.S. [address] [place] [phone] 08/13/2025 11:30 AM CDT Office Visit [facility] [place], [facility] Transplantation and Clinical Regeneration in [place], [place] [address] [place] [phone] Jessica Rousseau M.B.B.S. [address] [place] [phone] 09/25/2025 10:30 AM HOMELAND SECURITY PROGRAM SPECIALIST Telemedicine [facility] [place] Transplantation and Clinical Regeneration in [place], [place] [address] [place] [phone] Jessica Rousseau M.B.B.S. [address] [place] [phone] documented as of this encounter Visit Diagnoses Not on filedocumented in this encounter Additional Health Concerns Infection Onset Date Last Indicated Resolved Time Protective Environment 03/02/2023 03/02/2023 Assessment Noted Time PHQ-9 Depression Total Score: 2 12/10/19 25 2:46 PM HOMELAND SECURITY PROGRAM SPECIALIST documented as of this encounter Care Teams Certified Medication Aide Relationship Specialty Start Date End Date Renzo Andres M.D. [address] [place] [address] SUNNY Chapman [phone] PCP - General Family Medicine 04/25/23 documented as of this encounter
--- OUTSIDE RECORDS SUMMARY | 2025-07-19 18:10 | XMS_ITS | Encounter Summary ---
Author Organization [facility] Address [address] [place] [address] Care Team Providers Care Gripper Machine Operator Name Role Phone Renzo Andres M.D. Primary Care Provider Reason for Visit * Reason Onset Date Comments Med Refill 07/13/2025 Encounter Details Date Type Department Care Team (Late st Contact Info) Description 07/13/2025 [facility] [place], [place] [address] [place] [phone] Jessica Rousseau M.B.B.S. [address] [place] [phone] Med Refill Social History Tobacco Use Types Packs/Day Years [...] things needed for daily living? No 07/02/2025 [facility] Utilities Answer Date Recorded In the past 12 months has [employer], gas, oil, or water [employer] threatened to shut off services in your home? No 07/02/2025 Depression Answer Date Recor ded PHQ-9 Total Score (max 27) 12 07/08 Housing Stability Answer Date Recorded What is your living situation today? I have a [facility] place to live 07/02/2025 Education Answer Date Recorded What is the highest level of school you have completed or the highest degree you have received? Some college, no degree 04/24/2019 Comments No Sex and Gender Information Value Date Recorded Sex Assigned at Female 12/26/2018 8:37 PM SPECIAL EDUCATION SUPERINTENDENT Legal Sex Female 2:43 PM SPECIAL EDUCATION SUPERINTENDENT Gender Identity Female 12/26/2018 8:37 PM SPECIAL EDUCATION SUPERINTENDENT Sexual Orientation Choose not to disclose 2020 3:46 PM CDT documented as of this encounter Miscellaneous Notes * Telephone Encounter - Daniela Mercer R.N., BMT-CN - 07/15/2025 9:02 AM CDT This is a duplicate request documented in this encounter Plan of Treatment Upcoming Encounters Date Type Department Care Team (Late st Contact Info) Description 07/21/2025 11:00 AM CDT Telemedicine Department of Palliative Care in [place], [place] [address] [place] [phone] Meghan Osorio M.D. [address] [place] [phone] 07/22/2025 8:40 AM CDT Lab Department of Laboratory Medicine and Pathology, [facility] in [place], [place] [address] [place] [phone] Becky Hernandez APRN C.N.P., D.N.P. [address] [place] [phone] 07/22/2025 9:30 AM CDT Office Visit Pedro sanchez [facility] for Transplantation and Clinical Regeneration in [place], [place] [address] [place] [phone] Becky Hernandez APRN, C.N.P., D.N.P. [address] [place] [phone] 07/30/2025 2:00 PM CDT Appointment Division of Gastroenterology in [place], [place] [address] [place] [phone] Derrick Cruz Jr., M.D., M.S. [address] [place] [phone] 08/11/2025 9:00 AM CDT Nurse Only Section of Infectious Diseases in [place], [place] [address] [place] [phone] Jessica Rousseau M.B.B.S. [address] [place] [phone] 08/11/2025 1:00 PM CDT Clinical Support Department of Palliative Care in [place], [place] [address] [place] [address] Uma Aly APRN, CKatalinaNKatalinaP., M.S.N. [address] [place] [phone] 08/13/2025 10:00 AM CDT Lab Department of Laboratory Medicine and Pathology, [facility] in [place], [place] [address] [place] [address] Jessica Rousseau M.B.B.S. [address] [place] [phone] 08/13/2025 10:30 AM CDT [facility] in [place], [place] [address] [place] [address] Jessica Rousseau M.B.B.S. [address] [place] [phone] 08/13/2025 11:00 AM CDT Nurse Only [facility] for Transplantation and Clinical Regeneration in [place], [place] [address] [place] [phone] Jessica Rousseau M.B.B.S. [address] [place] [phone] 08/13/2025 11:30 AM CDT [facility] in [place], [place] [address] [place] [address] Jessica Rousseau M.B.B.S. [address] [place] [phone] 09/25/2025 10:30 AM SPECIAL EDUCATION SUPERINTENDENT Telemedicine [facility] in [place], [place] [address] [place] [phone] Jessica Rousseau M.B.B.S. 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 [address] [place] [phone] PCP - General Family Medicine 04/25/23 documented as of this encounter
--- OUTSIDE RECORDS SUMMARY | 2025-07-19 18:10 | XMS_ITS | Encounter Summary ---
Author Organization [facility] Address [address] [place] [address] Care Team Providers Care Eligibility Clerk Name Role Phone Renzo Andres M.D. Primary Care Provider Reason for Referral * Gastrointestinal (Routine) - Closed Specialty Diagnoses / Procedures Referred By Estefania t Referred To Contact Diagnoses Transplant Stem Cell (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) Procedures EGD (EsophagoGastroDuodenoscopy) Lito Pollock P.A.-C. [address] [place] [address] Phone: tel: fax: [facility] Referral ID Status Reason Start Date Expiration Date Visits Re quested Visits Authorized [id number] Closed 05/29/2025 08/29/2026 1 1 Encounter Details Date Type Department Care Team (Late st Contact Info) Description 05/29/2025 Orders Only [facility], [facility], Ninth Floor [address] [place] [address] Lito Pollock P.A.-C. [address] [place] [address] Leukemia Myeloid Chronic BCR/ABL Positive [...] things needed for daily living? No 06/12/2025 [facility] Utilities Answer Date Recorded In the past 12 months has [facility] electric, gas, oil, or water company threatened to shut off services in your home? No 06/12/2025 Depression Answer Date Recor ded PHQ-9 Total Score (max 27) 2 12/10 Housing Stability Answer Date Recorded What is your living situation today? I have a [facility] place to live 06/12/2025 Education Answer Date Recorded What is the highest level of school you have completed or the highest degree you have received? Some college, no degree 04/24/2019 Comments No Sex and Gender Information Value Date Recorded Sex Assigned at Female 12/26/2018 8:37 PM USABILITY ENGINEER Legal Sex Female 2:43 PM USABILITY ENGINEER Gender Identity Female 12/26/2018 8:37 PM USABILITY ENGINEER Sexual Orientation Choose not to disclose 2020 3:46 PM CDT documented as of this encounter Plan of Treatment Upcoming Encounters Date Type Department Care Team (Late st Contact Info) Description 07/21/2025 11:00 AM CDT Telemedicine Department of Palliative Care in [place], [place] [address] [place] [phone] Meghan Osorio M.D. [address] [place] [address] [phone] 07/22/2025 8:40 AM CDT Lab Department of Laboratory Medicine and Pathology, [facility] in [place], [place] [address] [place] [phone] Becky Hernandez APRN, C.N.P., D.N.P. [address] [place] [phone] 07/22/2025 9:30 AM CDT Office Visit Pedro Aravind sanchez [facility] for Transplantation and Clinical Regeneration in [place], [place] [address] [place] [phone] Becky Hernandez APRN, C.N.P., D.N.P. [address] [place] [phone] 07/30/2025 2:00 PM CDT Appointment Division of Gastroenterology in [place], [place] [address] [place] [phone] Derrick Cruz Jr., M.D., M.S. [address] [place] [address] [phone] 08/11/2025 9:00 AM CDT Nurse Only Section of Infectious Diseases in [place], [place] [address] [place] [address] Jessica Rousseau M.B.B.S. [address] [place] [phone] 08/11/2025 1:00 PM CDT Clinical Support Department of Palliative Care in [place], [place] [address] [place] [address] Uma Aly APRN, C.N.P., M.S.N. [address] [place] [phone] 08/13/2025 10:00 AM CDT Lab Department of Laboratory Medicine and Pathology, [facility], in [place], [place] [address] [place] [phone] Jessica Rousseau M.B.B.S. [address] [place] [phone] 08/13/2025 10:30 AM CDT Office Visit Pedro Fatima Atalissa for Transplantation and Clinical Regeneration in [place], [place] [address] [place] [address] Jessica Rousseau M.B.B.S. [address] [place] [phone] 08/13/2025 11:00 AM CDT Nurse Only Pedro Fatima Atalissa for Transplantation and Clinical Regeneration in [place], [place] [address] [place] [address] Jessica Rousseau M.B.B.S. [address] [place] [phone] 08/13/2025 11:30 AM CDT [facility] in [place], [place] [address] [place] [address] Jessica Rousseau M.B.B.S. [address] [place] [phone] 09/25/2025 10:30 AM USABILITY ENGINEER Telemedicine [facility] Transplantation and Clinical Regeneration in [place], [place] [address] [place] [address] Jessica Rousseau M.B.B.S. [address] [place] [phone] documented as of this encounter Results * CMV DNA Detect / Quant, Plasma (06/03/2025 9:41 AM CDT) Pathologist [facility] CMV DNA Detect/Quant, P Undetected Undetected IU/mL 06/03/2025 11:07 PM CDT [facility] Comment: Result in log IU/mL is Undetected. ----ADDITIONAL INFORMATION---- The quantification range of this assay is 35 to 10,000,000 IU/mL (1.54 log to 7.00 log IU/mL). Testing was performed using the lucrecia CMV test ([employer] Blood (Blood, Venous) 06/03/2025 9:41 AM CDT 06/03/2025 12:05 PM CDT Lito Pollock P.A.-C. LAB MICROBIOLOGY - BLOOD ORDER JANES Final Result [facility] SUPPORT MERRICK [address] [place] [address] [facility] [address] [place] [place] [address] * Magnesium (06/03/2025 9:41 AM CDT) Pathologist [facility] Magnesium, S 2.3 1.7 - 2.3 mg/dL 06/03/2025 10:41 AM CDT DTL Blood (Blood, Venous) 06/03/2025 9:41 AM CDT 06/03/2025 10:07 AM CDT Lito Pollock P.A.-C. LAB BLOOD ADD-ON Final Result Performing Organization Address [facility]/ZIP Co de Phone Number [facility] [address] [place] [address], [facility] [address] [place] [address] * LD (Lactate Dehydrogenase) (06/03/2025 9:41 AM CDT) [facility] LD 152 122 - 222 U/L 06/03/2025 11:04 AM CDT DTL Blood (Blood, Venous) 06/03/2025 9:41 AM CDT 06/03/2025 10:44 AM CDT Lito Pollock P.A.-C. LAB BLOOD NON ADD-ON Final Res ult Performing Organization Address [facility] Co de Phone Number [facility] [address] [place] [address], [facility] [address] [place] [address] * Comprehensive Metabolic Panel (06/03/2025 9:41 AM CDT) [facility] Potassium, S 4.1 3.6 - 5.2 mmol/L [...] Pollock P.A.-C. LAB BLOOD ADD-ON Final Result [facility] [address] [place] [address], [facility] [address] [place] [address] * (ABNORMAL) CBC with Differential, Blood (06/03/2025 [...] Pollock P.A.-C. LAB BLOOD ADD-ON Final Result [facility] [address] [place] [address], [place] DTL [facility] [address] [place] [address] DHPM [facility] [address] [place] [address] documented in this encounter Visit Diagnoses Diagnosis Leukemia Myeloid Chronic BCR/ABL Positive Not Having Achieved Remission (HCC)- Primary Transplant Stem Cell (HCC) documented in this encounter Additional Health Concerns Infection Onset Date Last Indicated Resolved Time Protective Environment 03/02/2023 03/02/2023 Assessment Noted Time PHQ-9 Depression Total Score: 2 12/10/19 25 2:46 PM USABILITY ENGINEER documented as of this encounter Care Teams Eligibility Clerk Relationship Specialty Start Date End Date Renzo Andres M.D. [address] [place] [address] [place] [phone] PCP - General Family Medicine 04/25/23 documented as of this encounter
--- OUTSIDE RECORDS SUMMARY | 2025-07-19 18:10 | XMS_ITS | Encounter Summary ---
Author Organization [facility] Address [address] [place] [address] Care Team Providers Care Night Order Selector Name Role Phone Renzo Andres M.D. Primary Care Provider [phone] Reason for Referral * Specialty Diagnoses / Procedures Referred By Estefania acosta Referred To Contact Diagnoses Transplant Bone Marrow Allogeneic (HCC) Transplant Stem Cell (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) RST [facility] [address] [place] [address] Phone: tel: [facility] Referral ID Status Reason Start Date Expiration Date Visits Re quested Visits Authorized Scheduling Instructions [id number] Encounter Details Date Type Department Care Team (Late st Contact Info) Description 07/10/2025 Orders Only [facility], [facility], Ninth Floor [address] [place] [address] Lucy Stout, R.N., BMT-CN, O.C.N. 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); Transplant Bone Marrow Allogeneic (HCC); Transplant Stem Cell (HCC) Social History [...] things needed for daily living? No 07/02/2025 [facility] Utilities Answer Date Recorded In the past 12 months has [facility] [employer], gas, oil, or water [employer] threatened to shut off services in your home? No 07/02/2025 Depression Answer Date Recor ded PHQ-9 Total Score (max 27) 12 07/08 Housing Stability Answer Date Recorded What is your living situation today? I have a [facility] place to live 07/02/2025 Education Answer Date Recorded What is the highest level of school you have completed or the highest degree you have received? Some college, no degree 04/24/2019 Comments No Sex and Gender Information Value Date Recorded Sex Assigned at Female 12/26/2018 8:37 PM SECURITY GUARD Legal Sex Female 2:43 PM SECURITY GUARD Gender Identity Female 12/26/2018 8:37 PM SECURITY GUARD Sexual Orientation Choose not to disclose 2020 3:46 PM CDT documented as of this encounter Plan of Treatment Upcoming Encounters Date Type Department Care Team (Late st Contact Info) Description 07/21/2025 11:00 AM CDT Telemedicine Department of Palliative Care in [place], [place] [address] [place] [phone] Meghan Osorio M.D. [address] [place] [address] [phone] 07/22/2025 8:40 AM CDT Lab Department of Laboratory Medicine and Pathology, [facility], in [place], [place] [address] [place] [phone] Becky Hernandez APRN, C.N.P., D.N.P. [address] [place] [address] [phone] 07/22/2025 9:30 AM CDT Office Visit Pedro Aravind [facility] for Transplantation and Clinical Regeneration in [place], [place] [address] [place] [address] [phone] Becky Hernandez APRN, C.N.P., D.N.P. [address] [place] [phone] 07/30/2025 2:00 PM CDT Appointment Division of Gastroenterology in [place], [place] [address] [place] [address] [phone] Derrikc Cruz Jr., M.D., M.S. [address] [place] [address] [phone] 08/11/2025 9:00 AM CDT Nurse Only Section of Infectious Diseases in [place], [place] [address] [place] [address] [phone] Jessica Rousseau M.B.B.S. [address] [place] [phone] 08/11/2025 1:00 PM CDT Clinical Support Department of Palliative Care in [place], [place] [address] [place] [address] Uma Aly APRN, C.N.P., M.S.N. [address] [place] [phone] 08/13/2025 10:00 AM CDT Lab Department of Laboratory Medicine and Pathology, [facility], in [place], [place] [address] [place] [address] Jessica Rousseau M.B.B.S. [address] [place] [phone] 08/13/2025 10:30 AM CDT [facility] in [place], [place] [address] [place] [address] Jessica Rousseau M.B.B.S. [address] [place] [phone] 08/13/2025 11:00 AM CDT Nurse Only [facility] for Transplantation and Clinical Regeneration in [place], [place] [address] [place] [address] Jessica Rousseau M.B.B.S. [address] [place] [phone] 08/13/2025 11:30 AM CDT Office [facility] in [place], [place] [address] [place] [address] Jessica Rousseau M.B.B.S. [address] [place] [address] [place] [phone] 09/25/2025 10:30 AM SECURITY GUARD Telemedicine Pedro sanchez [facility] for Transplantation and Clinical Regeneration in [place], [place] [address] [place] [address] Jessica Rousseau M.B.B.S. [address] [place] [address] Scheduled Referrals Name Type Priority Associated Diagnoses Orde r Schedule Hydration Infusion Therapy; Outpatient Referral Routine Transplant Bone Marrow Allogeneic (HCC) Transplant Stem Cell (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) Expected: 07/11/2025, Expires: 10/10/2026 documented as of this encounter Visit Diagnoses Diagnosis Leukemia Myeloid Chronic BCR/ABL Positive Remission (HCC)- Primary Transplant Bone Marrow Allogeneic (HCC) Transplant Stem Cell (HCC) documented in this encounter Additional Health Concerns Infection Onset Date Last Indicated Resolved Time Protective Environment 03/02/2023 03/02/2023 Assessment Noted Time PHQ-9 Depression Total Score: 12 025 9:42 AM CDT documented as of this encounter Care Teams Night Order Selector Relationship Specialty Start Date End Date Renzo Andres M.D. [address] [place] [phone] PCP - General Family Medicine 04/25/23 documented as of this encounter
--- OUTSIDE RECORDS SUMMARY | 2025-07-19 18:10 | XMS_ITS | Encounter Summary ---
Author Organization [facility] Address [address] [place] [address] Care Team Providers Care Car Icer Name Role Phone Renzo Andres M.D. Primary Care Provider [phone] Reason for Visit * Reason Comments Med Refill Encounter Details Date Type Department Care Team (Late st Contact Info) Description 07/16/2025 Refill [facility], Tenth Floor [address] [place] [address] Jessica Avila APRN, C.N.P., M.S.N. [address] [place] [phone] Med Refill Social History Tobacco Use Types [...] needed for daily living? No 07/02/2025 [facility] Utilities Answer Date Recorded In the past 12 months has [facility] electric, gas, oil, or water [employer] threatened to shut off services in your [...] Sex Assigned at Female 12/26/2018 8:37 PM FISHING VESSEL DECKHAND Legal Sex Female 2:43 PM FISHING VESSEL DECKHAND Gender Identity Female 12/26/2018 8:37 PM FISHING VESSEL DECKHAND Sexual Orientation Choose not to disclose 2020 3:46 PM CDT documented as of this encounter Plan of Treatment Upcoming Encounters Date Type Department Care Team (Late st Contact Info) Description 07/21/2025 11:00 AM CDT Telemedicine Department of Palliative Care in [place], [place] [address] [place] [phone] Meghan Osorio M.D. [address] [place] [phone] 07/22/2025 8:40 AM CDT Lab Department of Laboratory Medicine and Pathology, [facility], in [place], [place] [address] [place] [address] Becky Hernandez APRN, C.N.P., D.N.P. [address] [place] [phone] 07/22/2025 9:30 AM CDT [facility] in [place], [place] [address] [place] [address] Becky Hernandez APRN, C.N.P., D.N.P. [address] [place] [phone] 07/30/2025 2:00 PM CDT Appointment Division of Gastroenterology in [place], [place] [address] [place] [phone] Derrick Cruz Jr., M.D., M.S. [address] [place] [phone] 08/11/2025 9:00 AM CDT Nurse Only Section of Infectious Diseases in [place], [place] [address] [place] [phone] Jessica Rousseau M.B.B.S. [address] [place] [phone] 08/11/2025 1:00 PM CDT Clinical Support Department of Palliative Care in [place], [place] [address] [place] [address] Uma Aly APRN, C.N.P., M.S.N. [address] [place] [phone] 08/13/2025 10:00 AM CDT Lab Department of Laboratory Medicine and Pathology, [facility], in [place], [place] [address] [place] [address] Jessica Rousseau M.B.B.S. [address] [place] [phone] 08/13/2025 10:30 AM CDT Office [facility] in [place], [place] [address] [place] [address] Jessica Rousseau M.B.B.S. [address] [place] [phone] 08/13/2025 11:00 AM CDT Nurse Only [facility] in [place], [place] [address] [place] [address] Jessica Rousseau M.B.B.S. [address] [place] [phone] 08/13/2025 11:30 AM CDT Office Visit [facility] in [place], [place] [address] [place] [address] Jessica Rousseau M.B.B.S. [address] [place] [phone] 09/25/2025 10:30 AM FISHING VESSEL DECKHAND Telemedicine [facility] and Clinical Regeneration in [place], [place] [address] [place] [address] Jessica Rousseau M.B.B.S. [address] [place] [phone] documented as of this encounter Goals Goal Patient Goal Type Associated Problems Recent Progress Patient-Stated? Author [facility] Care Plan for Colonoscopy Routine Prep Care Plan [facility] Care Plan for Colonoscopy Routine Prep No Derrick Cruz Jr., M.D., M.S. Autogenerated Goal Care Plan Autogenerated Problem No Sophie Galarza documented as of this encounter Visit Diagnoses Not on filedocumented in this encounter Additional Health Concerns Active Problems Noted Date Diagnosed Date [facility] Care Plan for Colonoscopy Routine Pr ep 07/16/2025 Autogenerated Problem 07/16/2025 Infection Onset Date Last Indicated Resolved Time Protective Environment 03/02/2023 03/02/2023 Assessment Noted Time PHQ-9 Depression Total Score: 12 025 9:42 AM CDT documented as of this encounter Care Teams Car Icer Relationship Specialty Start Date End Date Renzo Andres M.D. [address] [place] [phone] PCP - General Family Medicine 04/25/23 documented as of this encounter
--- OUTSIDE RECORDS SUMMARY | 2025-07-19 18:10 | XMS_ITS | Encounter Summary ---
Author Organization [facility] Address [address] [place] [address] Care Team Providers Care Cnc Mill Programmer Name Role Phone Renzo Andres M.D. Primary Care Provider Reason for Visit * Reason Onset Date Comments Med Refill 07/15/2025 Encounter Details Date Type Department Care Team (Late st Contact Info) Description 07/15/2025 Refill Pedro sanchez [facility] for Transplantation and Clinical Regeneration in [place], [place] [address] [place] [address] Lida Olivas, RKatalinaN. Med Refill Social History Tobacco Use Types [...] things needed for daily living? No 07/02/2025 [facility] Utilities Answer Date Recorded In the past 12 months has e electric, gas, oil, or water company threatened to shut off services in your home? No 07/02/2025 Depression Answer Date Recor ded PHQ-9 Total Score (max 27) 12 07/08 Housing Stability Answer Date Recorded What is your living situation today? I have a [facility] place to live 07/02/2025 Education Answer Date Recorded What is the highest level of school you have completed or the highest degree you have received? Some college, no degree 04/24/2019 Comments No Sex and Gender Information Value Date Recorded Sex Assigned at Female 12/26/2018 8:[address] MESSENGER Legal Sex Female 2:[address] MESSENGER Gender Identity Female 12/26/2018 8:[address] MESSENGER Sexual Orientation Choose not to disclose 2020 3:46 PM CDT documented as of this encounter Plan of Treatment Upcoming Encounters Date Type Department Care Team (Late st Contact Info) Description 07/21/2025 11:00 AM CDT Telemedicine Department of Palliative Care in [place], [place] [address] [place] [address] Meghan Osorio M.D. 200 [place] [address] 07/22/2025 8:40 AM CDT Lab Department of Laboratory Medicine and Pathology, [facility], in [place], [place] [address] [place] [address] Becky Hernandez APRN, C.N.P., D.N.P. [address] [place] [phone] 07/22/2025 9:30 AM CDT Office Visit Pedro Aravind sanchez [facility] for Transplantation and Clinical Regeneration in [place], [place] [address] [place] [address] Becky Hernandez APRN, C.N.P., D.N.P. [address] [place] [phone] 07/30/2025 2:00 PM CDT Appointment Division of Gastroenterology in [place], [place] [address] [place] [address] Derrick Cruz Jr., M.D., M.S. [address] [place] [phone] 08/11/2025 9:00 AM CDT Nurse Only Section of Infectious Diseases in [place], [place] [address] [place] [phone] Jessica Rousseau M.B.B.S. [address] [place] [phone] 08/11/2025 1:00 PM CDT Clinical Support Department of Palliative Care in [place], [place] [address] [place] [address] Uma Aly APRN, C.N.P., M.S.N. [address] [place] [phone] 08/13/2025 10:00 AM CDT Lab Department of Laboratory Medicine and Pathology, [facility], in [place], [place] [address] [place] [address] Jessica Rousseau M.B.B.S. [address] [place] [phone] 08/13/2025 10:30 AM CDT [facility] in [place], [place] [address] [place] [address] Jessica Rousseau M.B.B.S. [address] [place] [phone] 08/13/2025 11:00 AM CDT Nurse Only [facility] in [place], [place] [address] [place] [address] Jessica Rousseau M.B.B.S. [address] [place] [phone] 08/13/2025 11:30 AM CDT Office [facility] in [place], [place] [address] [place] [address] Jessica Rousseau M.B.B.S. [address] [place] [phone] 09/25/2025 10:[address] MESSENGER Telemedicine Pedro [facility] in [place], [place] [address] [place] [address] Jessica Rousseau M.B.B.S. 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 [address] [place] [address] SUN[place] Hansen [phone] PCP - General Family Medicine 04/25/23 documented as of this encounter
--- OUTSIDE RECORDS SUMMARY | 2025-07-19 18:10 | XMS_ITS | Encounter Summary ---
Author Organization [facility] Address [address] [place] [address] Care Team Providers Care Pavilion Cutter Name Role Phone Renzo Andres M.D. Primary Care Provider Encounter Details Date Type Department Care Team (Late st Contact Info) Description 07/10/2025 Clinical Communication [facility], Ninth Floor [address] [place] [phone] Lucy Stout, R.N., BMT-CN, O.C.N. Social History Tobacco Use Types Packs/Day Years [...] things needed for daily living? No 07/02/2025 [facility] Utilities Answer Date Recorded In the past 12 months has th e electric, gas, oil, or water company threatened to shut off services in your home? No 07/02/2025 Depression Answer Date Recor ded PHQ-9 Total Score (max 27) 12 07/08 Housing Stability Answer Date Recorded What is your living situation today? [facility] a [facility] 07/02/2025 Education Answer Date Recorded What is the highest level of school you have completed or the highest degree you have received? Some college, no degree 04/24/2019 Comments No Sex and Gender Information Value Date Recorded Sex Assigned at Female 12/26/2018 8:37 PM FREIGHT CAR INSPECTOR Legal Sex Female 2:43 PM FREIGHT CAR INSPECTOR Gender Identity Female 12/26/2018 8:37 PM FREIGHT CAR INSPECTOR Sexual Orientation Choose not to disclose 2020 3:46 PM CDT documented as of this encounter Miscellaneous Notes * Telephone Encounter - Lucy Stout, RKatalinaNKatalina, BMT-CN, O.C.N. - 07/10/2025 6:16 PM CDT Reason for call: Pain, increased BMs, nausea Transplant Type and Transplant Day (pre/post) Allo Onset: acute Location: Generalized Intensity: 6 Duration: Acute Quality characteristics: aching Have you experienced this type of pain in the past? Yes;when on prednisone previously Aggravating Factors: moving Alleviating Factors: Medicine, reports minor relief from acetaminophen, enough to take the edge off Is the pain inhibiting your activity or mobility? Yes; Ability to eat, drink and take medications? No Other contributing information: While on the phone with patient she reported that she had chest pain. Recommendations/Coordination of Care Recommended to the patient: Instructed patient to seek emergency care if symptoms do not resolve. Report to the nearest Emergency Department if experiencing chest pain. Spoke to provider and they recommended reporting to the local ED for pain management and to have follow up appt with BMT team tomorrow on [address]. Telephone Triage for Oncology Nurses (Second Edition) pages 199-200 documented in this encounter Plan of Treatment Upcoming Encounters Date Type Department Care Team (Late st Contact Info) Description 07/21/2025 11:00 AM CDT Telemedicine Department of Palliative Care in [place], [place] [address] [place] [phone] Meghan Osorio M.D. [address] [place] [phone] 07/22/2025 8:40 AM CDT Lab Department of Laboratory Medicine and Pathology, [facility], in [place], [place] [address] [place] [phone] Becky Hernandez APRN, C.N.P., D.N.P. [address] [place] [phone] 07/22/2025 9:30 AM CDT Office Visit Pedro [facility] for Transplantation and Clinical Regeneration in [place], [place] [address] [place] [phone] Becky Hernandez APRN, C.N.P., D.N.P. [address] [place] [phone] 07/30/2025 2:00 PM CDT Appointment Division of Gastroenterology in [place], [place] [address] [place] [phone] Derrick Cruz Jr., M.D., M.S. [address] [place], [place] [phone] 08/11/2025 9:00 AM CDT Nurse Only Section of Infectious Diseases in [place], [place] [address] [place] [phone] Jessica Rousseau M.B.B.S. [address] [place] [phone] 08/11/2025 1:00 PM CDT Clinical Support Department of Palliative Care in [place], [place] [address] [place] [address] Uma Aly APRN, C.N.P., M.S.N. [address] [place] [phone] 08/13/2025 10:00 AM CDT Lab Department of Laboratory Medicine and Pathology, [facility], in [place], [place] [address] [place] [phone] Jessica Rousseau M.B.B.S. [address] [place] [phone] 08/13/2025 10:30 AM CDT Office Visit [facility] Clinical Regeneration in [place], [place] [address] [place] [phone] Jessica Rousseau M.B.B.S. [address] [place] [phone] 08/13/2025 11:00 AM CDT Nurse Only [facility] for Transplantation and Clinical Regeneration in [place], [place] [address] [place] [address] Jessica Rousseau M.B.B.S. [address] [place] [phone] 08/13/2025 11:30 AM CDT Office Visit [facility] Transplantation and Clinical Regeneration in [place], [place] [address] [place] [address] Jessica Rousseau M.B.B.S. [address] [place] [phone] 09/25/2025 10:30 AM FREIGHT CAR INSPECTOR Telemedicine [facility] Transplantation and Clinical Regeneration in [place], [place] [address] [place] [phone] Jessica Rousseau M.B.B.S. [address] [place] [phone] documented as of this encounter Visit Diagnoses Not on filedocumented in this encounter Additional Health Concerns Infection Onset Date Last Indicated Resolved Time Protective Environment 03/02/2023 03/02/2023 Assessment Noted Time PHQ-9 Depression Total Score: 12 07/08/ 025 9:42 AM CDT documented as of this encounter Care Teams Pavilion Cutter Relationship Specialty Start Date End Date Renzo nAdres M.D. [address] [place] [phone] PCP - General Family Medicine 04/25/23 documented as of this encounter
--- OUTSIDE RECORDS SUMMARY | 2025-07-19 18:12 | XMS_ITS | Encounter Summary ---
Author Organization [facility] Address [address] [place] [address] Care Team Providers Care Visiting Housekeeper Name Role Phone Renzo Andres M.D. Primary Care Provider [phone] Reason for Visit * Reason Onset Date Comments Med Refill 07/02/2025 Encounter Details Date Type Department Care Team (Late st Contact Info) Description 07/02/2025 [facility] in [place], [place] [address] [place] [phone] Daniela Mercer R.N., BMT-CN [address] [place] [phone] Med Refill Social History Tobacco Use Types [...] things needed for daily living? No 07/02/2025 [facility] Utilities Answer Date Recorded In the past 12 months has e electric, gas, oil, or water [employer] threatened to shut off services in your home? No 07/02/2025 Depression Answer Date Recor ded PHQ-9 Total Score (max 27) 2 12/10 Housing Stability Answer Date Recorded What is your living situation today? I have a [facility] place to live 07/02/2025 Education Answer Date Recorded What is the highest level of school you have completed or the highest degree you have received? Some college, no degree 04/24/2019 Comments No Sex and Gender Information Value Date Recorded Sex Assigned at Female 12/26/2018 8:37 PM MUSIC THERAPY TEACHER Legal Sex Female 2:43 PM MUSIC THERAPY TEACHER Gender Identity Female 12/26/2018 8:37 PM MUSIC THERAPY TEACHER Sexual Orientation Choose not to disclose 2020 3:46 PM CDT documented as of this encounter Plan of Treatment Upcoming Encounters Date Type Department Care Team (Late st Contact Info) Description 07/21/2025 11:00 AM CDT Telemedicine Department of Palliative Care in [place], [place] [address] [place] [address] Meghan Osorio M.D. [address] [place] [phone] 07/22/2025 8:40 AM CDT Lab Department of Laboratory Medicine and Pathology, [facility], in [place], [place] [address] [place] [address] Becky Hernandez APRN, C.N.P., D.N.P. [address] [place] [phone] 07/22/2025 9:30 AM CDT Office [facility] in [place], [place] [address] [place] [phone] Becky Hernandez APRN, C.N.P., D.N.P. [address] [place] [phone] 07/30/2025 2:00 PM CDT Appointment Division of Gastroenterology in [place], [place] [address] [place] [phone] Derrick Cruz Jr., M.D., M.S. [address] [place] [phone] 08/11/2025 9:00 AM CDT Nurse Only Section of Infectious Diseases in [place], [place] [address] [place] [phone] Jessica Rousseau M.B.B.S. [address] [place] [phone] 08/11/2025 1:00 PM CDT Clinical Support Department of Palliative Care in [place], [place] [address] [place] [phone] Uma Aly APRN, C.N.P., M.S.N. [address] [place] [phone] 08/13/2025 10:00 AM CDT Lab Department of Laboratory Medicine and Pathology, [facility], in [place], [place] [address] [place] [address] Jessica Rousseau M.B.B.S. [address] [place] [phone] 08/13/2025 10:30 AM CDT [facility] in [place], [place] [address] [place] [address] Jessica Rousseau M.B.B.S. [address] [place] [phone] 08/13/2025 11:00 AM CDT Nurse Only [facility] in [place], [place] [address] [place] [address] Jessica Rousseau M.B.B.S. [address] [place] [phone] 08/13/2025 11:30 AM CDT [facility] in [place], [place] [address] [place] [address] Jessica Rousseau M.B.B.S. [address] [place] [phone] 09/25/2025 10:30 AM MUSIC THERAPY TEACHER Telemedicine [facility] in [place], [place] [address] [place] [address] Jessica Rousseau M.B.B.S. 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 [address] [place] [phone] PCP - General Family Medicine 04/25/23 documented as of this encounter
--- OUTSIDE RECORDS SUMMARY | 2025-07-19 18:12 | XMS_ITS | Encounter Summary ---
Author Organization [facility] Address [address] [place] [address] Care Team Providers Care Wharf Tally Clerk Name Role Phone Renzo Andres M.D. Primary Care Provider Encounter Details Date Type Department Care Team (Latest Contact Info) Description 07/02/2025 Clinical Communication Pedro Nazario [facility] for Transplantation and Clinical Regeneration in [place], [place] [address] [place] [phone] Jessica Rousseau M.B.B.S. [address] [place] [address] Social History Tobacco Use Types Packs/Day Years [...] a [facility] place to live 07/02/2025 Education Answer Date Recorded What is the highest level of school you have completed or the highest degree you have received? Some college, no degree 04/24/2019 Comments No Sex and Gender Information Value Date Recorded Sex Assigned at Female 12/26/2018 8:37 PM FLY SETTER Legal Sex Female 2:43 PM FLY SETTER Gender Identity Female 12/26/2018 8:37 PM FLY SETTER Sexual Orientation Choose not to disclose 2020 3:46 PM CDT documented as of this encounter Plan of Treatment Upcoming Encounters Date Type Department Care Team (Late st Contact Info) Description 07/21/2025 11:00 AM CDT Telemedicine Department of Palliative Care in [place], [place] [address] [place] [address] Meghan Osorio M.D. 200 [place] [address] 07/22/2025 8:40 AM CDT Lab Department of Laboratory Medicine and Pathology, [facility], in [place], [place] [address] [place] [address] Becky Hernandez APRN, C.N.PKatalina, D.N.P. [address] [place] [phone] 07/22/2025 9:30 AM CDT Office Visit [facility] Aravind [facility] for Transplantation and Clinical Regeneration in [place], [place] [address] [place] [address] Becky Hernandez APRN, C.N.Jean., D.N.P. [address] [place] [phone] 07/30/2025 2:00 PM CDT Appointment Division of Gastroenterology in [place], [place] [address] [place] [phone] Derrick Cruz Jr., M.D., M.S. [address] [place] [phone] 08/11/2025 9:00 AM CDT Nurse Only Section of Infectious Diseases in [place], [place] [address] [place] [phone] Jessica Rousseau M.B.B.S. [address] [place] [phone] 08/11/2025 1:00 PM CDT Clinical Support Department of Palliative Care in [place], [place] [address] [place] [phone] Uma Aly APRN, C.N.P., M.S.N. [address] [place] [phone] 08/13/2025 10:00 AM CDT Lab Department of Laboratory Medicine and Pathology, [facility], in [place], [place] [address] [place] [address] Jessica Rousseau M.B.B.S. [address] [place] [phone] 08/13/2025 10:30 AM CDT [facility] in [place], [place] [address] [place] [address] Jessica Rousseau M.B.B.S. [address] [place] [phone] 08/13/2025 11:00 AM CDT Nurse Only [facility] in [place], [place] [address] [place] [address] Jessica Rousseau M.B.B.S. [address] [place] [phone] 08/13/2025 11:30 AM CDT [facility] in [place], [place] [address] [place] [address] Jessica Rousseau M.B.B.S. [address] [place] [phone] 09/25/2025 10:30 AM FLY SETTER Telemedicine [facility] in [place], [place] [address] [place] [address] Jessica Rousseau M.B.B.S. [address] [place] [phone] documented as of this encounter Visit Diagnoses Not on filedocumented in this encounter Additional Health Concerns Infection Onset Date Last Indicated Resolved Time Protective Environment 03/02/2023 03/02/2023 Assessment Noted Time PHQ-9 Depression Total Score: 2 12/10/19 25 2:46 PM FLY SETTER documented as of this encounter Care Teams Wharf Tally Clerk Relationship Specialty Start Date End Date Renzo Andres M.D. [address] [place] [phone] PCP - General Family Medicine 04/25/23 documented as of this encounter
--- OUTSIDE RECORDS SUMMARY | 2025-07-19 18:12 | XMS_ITS | Encounter Summary ---
Author Organization [facility] Address [address] [place] [address] Care Team Providers Care Credit Products Officer Name Role Phone Renzo Andres M.D. Primary Care Provider [phone] Reason for Visit * Reason Onset Date Comments Phone Contact 07/08/2025 New Symptoms Encounter Details Date Type Department Care Team (Latest Contact Info) Description 07/08/2025 Clinical Communication [facility] in [place], [place] [address] [place] [address] Jessica Rousseau M.B.B.S. [address] [place] [phone] Phone Contact (New Symptoms ) Social History Tobacco Use Types Packs/Day [...] today? I have a [facility] place to live 07/02/2025 Education Answer Date Recorded What is the highest level of school you have completed or the highest degree you have received? Some college, no degree 04/24/2019 Comments No Sex and Gender Information Value Date Recorded Sex Assigned at Female 12/26/2018 8:37 PM COMPLIANCE MONITOR Legal Sex Female 2:43 PM COMPLIANCE MONITOR Gender Identity Female 12/26/2018 8:37 PM COMPLIANCE MONITOR Sexual Orientation Choose not to disclose 2020 3:46 PM CDT documented as of this encounter Plan of Treatment Upcoming Encounters Date Type Department Care Team (Late st Contact Info) Description 07/21/2025 11:00 AM CDT Telemedicine Department of Palliative Care in [place], [place] [address] [place] [address] Meghan Osorio M.D. [address] [place] [address] 07/22/2025 8:40 AM CDT Lab Department of Laboratory Medicine and Pathology, [facility], in [place], [place] [address] [place] [phone] Becky Hernandez APRN, C.N.P., D.N.P. [address] [place] [phone] 07/22/2025 9:30 AM CDT Office Visit [facility] for Transplantation and Clinical Regeneration in [place], [place] [address] [place] [phone] Becky Hernandez APRN, C.N.P., D.N.P. [address] [place] [phone] 07/30/2025 2:00 PM CDT Appointment Division of Gastroenterology in [place], [place] [address] [place] [phone] Derrick Cruz Jr., M.D., M.S. [address] [place] [phone] 08/11/2025 9:00 AM CDT Nurse Only Section of Infectious Diseases in [place], [place] [address] [place] [phone] Jessica Rousseau M.B.B.S. [address] [place] [phone] 08/11/2025 1:00 PM CDT Clinical Support Department of Palliative Care in [place], [place] [address] [place] [phone] Uma Aly APRN, C.N.P., M.S.N. [address] [place] [phone] 08/13/2025 10:00 AM CDT Lab Department of Laboratory Medicine and Pathology, [facility], in [place], [place] [address] [place] [address] Jessica Rousseau M.B.B.S. [address] [place] [phone] 08/13/2025 10:30 AM CDT [facility] in [place], [place] [address] [place] [address] Jessica Rousseau M.B.B.S. [address] [place] [phone] 08/13/2025 11:00 AM CDT Nurse Only [facility] in [place], [place] [address] [place] [address] Jessica Rousseau M.B.B.S. [address] [place] [phone] 08/13/2025 11:30 AM CDT [facility] in [place], [place] [address] [place] [address] Jessica Rousseau M.B.B.S. [address] [place] [phone] 09/25/2025 10:30 AM COMPLIANCE MONITOR Telemedicine [facility] in [place], [place] [address] [place] [address] Jessica Rousseau M.B.B.S. [address] [place] [phone] documented as of this encounter Visit Diagnoses Not on filedocumented in this encounter Additional Health Concerns Infection Onset Date Last Indicated Resolved Time Protective Environment 03/02/2023 03/02/2023 Assessment Noted Time PHQ-9 Depression Total Score: 12 025 9:42 AM CDT documented as of this encounter Care Teams Credit Products Officer Relationship Specialty Start Date End Date Renzo Andres M.D. NPAmanda: [phone] [address] [place] [address] [place] [address] PCP - General Family Medicine 04/25/23 documented as of this encounter
--- OUTSIDE RECORDS SUMMARY | 2025-07-19 18:12 | XMS_ITS | Encounter Summary ---
Author Organization [facility] Address [address] [place] [address] Care Team Providers Care Material Stockkeeper Yard Name Role Phone Renzo Andres M.D. Primary Care Provider Reason for Visit * Reason Onset Date Comments Lab Monitoring 05/11/2025 05/08/2025 Encounter Details Date Type Department Care Team (Latest Contact Info) Description 05/11/2025 Clinical Communication [facility] in [place], [place] [address] [place] [phone] Arely Taylor, R.N. [address] [place] [phone] Lab Monitoring (05/08/2025) Social History Tobacco Use [...] Recorded In the past 12 months has [employer], gas, oil, or water [employer] threatened to shut off services in your home? No 06/12/2025 Depression Answer Date Recor ded PHQ-9 Total Score (max 27) 2 12/10 Housing Stability Answer Date Recorded What is your living situation today? I have a [facility] place to live 06/12/2025 Education Answer Date Recorded What is the highest level of school you have completed or the highest degree you have received? Some college, no degree 04/24/2019 Comments No Sex and Gender Information Value Date Recorded Sex Assigned at Female 12/26/2018 8:37 PM PAPER MILL SUPERVISOR Legal Sex Female 2:43 PM PAPER MILL SUPERVISOR Gender Identity Female 12/26/2018 8:37 PM PAPER MILL SUPERVISOR Sexual Orientation Choose not to disclose [...] Local labs at [facility] in 10 days. BMT Allogenic transplant date: 12/10/2024 (152 days) Lab frequency: weekly Next BMT visit: 05/20/2025 Outside labs from 05/08/2025 are located in the Labs section of [employer] Labs pending: None Resulted Labs: Recent Labs [...] CDT Telemedicine Department of Palliative Care in [place], [place] [address] [place] [phone] Meghan Osorio M.D. [address] [place] [phone] 07/22/2025 8:40 AM CDT Lab Department of Laboratory Medicine and Pathology, [facility], in [place], [place] [address] [place] [phone] Becky Hernandez APRN C.N.P., D.N.P. [address] [place] [phone] 07/22/2025 9:30 AM CDT Office Visit Pedro sanchez [facility] for Transplantation and Clinical Regeneration in [place], [place] [address] [place] [phone] Becky Hernandez APRN, C.N.P., D.N.P. [address] [place] [phone] 07/30/2025 2:00 PM CDT Appointment Division of Gastroenterology in [place], [place] [address] [place] [phone] Derrick Cruz Jr., M.D., M.S. [address] [place] [phone] 08/11/2025 9:00 AM CDT Nurse Only Section of Infectious Diseases in [place], [place] [address] [place] [phone] Jessica Rousseau M.B.B.S. [address] [place] [phone] 08/11/2025 1:00 PM CDT Clinical Support Department of Palliative Care in [place], [place] [address] [place] [phone] Uma Aly APRN, C.N.P., M.S.N. [address] [place] [phone] 08/13/2025 10:00 AM CDT Lab Department of Laboratory Medicine and Pathology, [facility], in [place], [place] [address] [place] [address] Jessica Rousseau M.B.B.S. [address] [place] [phone] 08/13/2025 10:30 AM CDT Office [facility] in [place], [place] [address] [place] [address] Jessica Rousseau M.B.B.S. [address] [place] [phone] 08/13/2025 11:00 AM CDT Nurse Only Pedro Nazario [facility] Transplantation and Clinical Regeneration in [place], [place] [address] [place] [address] Jessica Rousseau M.B.B.S. [address] [place] [phone] 08/13/2025 11:30 AM CDT Office Visit Pedro Myla laura [facility] Transplantation and Clinical Regeneration in [place], [place] [address] [place] [address] Jessica Rousseau M.B.B.S. [address] [place] [phone] 09/25/2025 10:30 AM PAPER MILL SUPERVISOR Telemedicine [facility] in [place], [place] [address] [place] [address] Jessica Rousseau M.B.B.S. 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 [address] [place] [phone] PCP - General Family Medicine 04/25/23 documented as of this encounter
--- OUTSIDE RECORDS SUMMARY | 2025-07-19 18:12 | XMS_ITS | Encounter Summary ---
Author Organization [facility] Address [address] [place] [address] Care Team Providers Care Blood Bank Order Control Clerk Name Role Phone Renzo Andres M.D. Primary Care Provider Encounter Details Date Type Department Care Team (Late st Contact Info) Description 07/02/2025 Documentation [facility] for Trans[facility] and Clinical Regeneration in [place], [place] [address] [place] [phone] Jessica Rousseau M.B.B.S. [address] [place] [phone] Social History Tobacco Use Types Packs/Day Years [...] things needed for daily living? No 07/02/2025 [facility] Utilities Answer Date Recorded In the past 12 months has th e [employer], gas, oil, or water company threatened to shut off services in your home? No 07/02/2025 Depression Answer Date Recor ded PHQ-9 Total Score (max 27) 2 12/10 Housing Stability Answer Date Recorded What is your living situation today? I have a [facility] place to live 07/02/2025 Education Answer Date Recorded What is the highest level of school you have completed or the highest degree you have received? Some college, no degree 04/24/2019 Comments No Sex and Gender Information Value Date Recorded Sex Assigned at Female 12/26/2018 8:37 PM STEREOTYPER APPRENTICE Legal Sex Female 2:43 PM STEREOTYPER APPRENTICE Gender Identity Female 12/26/2018 8:37 PM STEREOTYPER APPRENTICE Sexual Orientation Choose not to disclose 2020 3:46 PM CDT documented as of this encounter Progress Notes * Jessica Rousseau M.B.B.S. 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 With ongoing pain and intermittent diarrhea, we will start her on prednisone 40 mg daily and taper 5-10 mg every week if symptoms resolve/improve. If they do not we can add Jakafi 5 mg b.i.d. to her regimen. I have sent prescriptions to speciality pharmacy for [facility]. I called and spoke to Ms. Martinez and discussed possibility of vkshd-kpsjus-cbhk disease of the lower gut. She continues to endorse abdominal pain, independent diarrhea and vomiting once or twice daily. Shedid confirm that previously when she was on steroids her nausea, vomiting, abdominal pain and diarrhea had resolved. Dilaudid takes the edge of the pain, decreases intensity of pain from 7/10 to 4 of10. She was agreeable to start prednisone 40 mg daily with a slow taper. She will take Protonix 40 mg twice daily for her gastritis. I also encouraged her to take Dilaudid for her abdominal pain under give her sometime to ease the pain to it she was agreeable. She verbalized understanding and agreed with the plan. documented in this encounter Plan of Treatment Upcoming Encounters Date Type Department Care Team (Late st Contact Info) Description 07/21/2025 11:00 AM CDT Telemedicine Department of Palliative Care in [place], [place] [address] [place] [phone] Meghan Osorio M.D. [address] [place] [phone] 07/22/2025 8:40 AM CDT Lab Department of Laboratory Medicine and Pathology, [facility], in [place], [place] [address] [place] [phone] Becky Hernandez APRN, C.N.P., D.N.P. [address] [place] [phone] 07/22/2025 9:30 AM CDT [facility] in [place], [place] [address] [place] [phone] Becky Hernandez APRN, C.N.P., D.N.P. [address] [place] [phone] 07/30/2025 2:00 PM CDT Appointment Division of Gastroenterology in [place], [place] [address] [place] [phone] Derrick Cruz Jr., M.D., M.S. [address] [place] [phone] 08/11/2025 9:00 AM CDT Nurse Only Section of Infectious Diseases in [place], [place] [address] [place] [phone] Jessica Rousseau M.B.B.S. [address] [place] [phone] 08/11/2025 1:00 PM CDT Clinical Support Department of Palliative Care in [place], [place] [address] [place] [address] Uma Aly APRN, C.N.P., M.S.N. [address] [place] [phone] 08/13/2025 10:00 AM CDT Lab Department of Laboratory Medicine and Pathology, [facility], in [place], [place] [address] [place] [phone] Jessica Rousseau M.B.B.S. [address] [place] [phone] 08/13/2025 10:30 AM CDT [facility] in [place], [place] [address] [place] [phone] Jessica Rousseau M.B.B.S. [address] [place] [phone] 08/13/2025 11:00 AM CDT Nurse Only [facility] in [place], [place] [address] [place] [address] Jessica Rousseau M.B.B.S. [address] [place] [phone] 08/13/2025 11:30 AM CDT Office Visit [facility] in [place], [place] [address] [place] [address] Jessica Rousseau M.B.B.S. [address] [place] [phone] 09/25/2025 10:30 AM STEREOTYPER APPRENTICE Telemedicine [facility] [place] Transplantation and Clinical Regeneration in [place], [place] [address] [place] [address] Jessica Rousseau M.B.B.S. [address] [place] [phone] documented as of this encounter Visit Diagnoses Not on filedocumented in this encounter Additional Health Concerns Infection Onset Date Last Indicated Resolved Time Protective Environment 03/02/2023 03/02/2023 Assessment Noted Time PHQ-9 Depression Total Score: 2 12/10/19 25 2:46 PM STEREOTYPER APPRENTICE documented as of this encounter Care Teams Blood Bank Order Control Clerk Relationship Specialty Start Date End Date Renzo Andres M.D. [address] [place] [phone] PCP - General Family Medicine 04/25/23 documented as of this encounter
--- OUTSIDE RECORDS SUMMARY | 2025-07-19 18:12 | XMS_ITS | Encounter Summary ---
Author Organization [facility] Address [address] [place] [address] Care Team Providers Care Criminal Judge Name Role Phone Renzo Andres M.D. Primary Care Provider [phone] Reason for Visit * Reason Onset Date Comments Phone Contact 07/02/2025 Encounter Details Date Type Department Care Team (Latest Contact Info) Description 07/02/2025 Clinical Communication [facility] Trans[facility] and Clinical Regeneration in [place], [place] [address] [place] [address] Jessica Rousseau M.B.B.S. [address] [place] [phone] Phone Contact Social History Tobacco Use Types [...] for daily living? No 07/02/2025 [facility] Utilities Answer Date Recorded In the past 12 months has e [employer], gas, oil, or water [employer] threatened to shut off services in your home? No 07/02/2025 Depression Answer Date Recor ded PHQ-9 Total Score (max 27) 2 12/10 Housing Stability Answer Date Recorded What is your living situation today? I have a [facility] place to live 07/02/2025 Education Answer Date Recorded What is the highest level of school you have completed or the highest degree you have received? Some college, no degree 04/24/2019 Comments No Sex and Gender Information Value Date Recorded Sex Assigned at Female 12/26/2018 8:37 PM FLYING SHEAR OPERATOR Legal Sex Female 2:43 PM FLYING SHEAR OPERATOR Gender Identity Female 12/26/2018 8:37 PM FLYING SHEAR OPERATOR Sexual Orientation Choose not to disclose 2020 3:46 PM CDT documented as of this encounter Miscellaneous Notes * Telephone Encounter - Daniela Mercer R.N., BMT-CN - 07/02/2025 5:52 PM CDT Patient will be admitted I have been discussing with her through out the day with symptoms Of pain Nausea tried different things Started on pred 40 mg holding budesonide as of today not taken off of her list yet Gluc montioring if needed for her sugars with frequent urination and thirst and urinary symptoms No fever Very anxious Bp 165/110 one time check at home DR Soham is aware I told her to call 94 if she feels unwell local ED will not manage her pain and her nausea documented in this encounter Plan of Treatment Upcoming Encounters Date Type Department Care Team (Late st Contact Info) Description 07/21/2025 11:00 AM CDT Telemedicine Department of Palliative Care in [place], [place] [address] [place] [phone] Meghan Osorio M.D. [address] [place], [place] [phone] 07/22/2025 8:40 AM CDT Lab Department of Laboratory Medicine and Pathology, [facility] in [place], [place] [address] [place] [phone] Becky Hernandez APRN, C.N.P., D.N.P. [address] [place] [phone] 07/22/2025 9:30 AM CDT Office Visit Pedro sanchez [facility] for Transplantation and Clinical Regeneration in [place], [place] [address] [place] [phone] Becky Hernandez APRN, C.N.P., D.N.P. [address] [place] [phone] 07/30/2025 2:00 PM CDT Appointment Division of Gastroenterology in [place], [place] [address] [place] [phone] Derrick Cruz Jr., M.D., M.S. [address] [place], [place] [phone] 08/11/2025 9:00 AM CDT Nurse Only Section of Infectious Diseases in [place], [place] [address] [place] [phone] Jessica Rousseau M.B.B.S. [address] [place] [phone] 08/11/2025 1:00 PM CDT Clinical Support Department of Palliative Care in [place], [place] [address] [place] [phone] Uma Aly APRN, C.N.P., M.S.N. [address] [place] [phone] 08/13/2025 10:00 AM CDT Lab Department of Laboratory Medicine and Pathology, [facility], in [place], [place] [address] [place] [phone] Jessica Rousseau M.B.B.S. [address] [place] [phone] 08/13/2025 10:30 AM CDT Office Visit [facility] for Trans[facility] and Clinical Regeneration in [place], [place] [address] [place] [phone] Jessica Rousseau M.B.B.S. [address] [place] [phone] 08/13/2025 11:00 AM CDT Nurse Only Pedro sanchez [facility] for Transplantation and Clinical Regeneration in [place], [place] [address] [place] [phone] Jessica Rousseau M.B.B.S. [address] [place] [phone] 08/13/2025 11:30 AM CDT Office Visit [facility] Transplantation and Clinical Regeneration in [place], [place] [address] [place] [phone] Jessica Rousseau M.B.B.S. [address] [place] [address] 09/25/2025 10:30 AM FLYING SHEAR OPERATOR Telemedicine [facility] Transplantation and Clinical Regeneration in [place], [place] [address] [place] [phone] Jessica Rousseau M.B.B.S. [address] [place] [phone] documented as of this encounter Visit Diagnoses Not on filedocumented in this encounter Additional Health Concerns Infection Onset Date Last Indicated Resolved Time Protective Environment 03/02/2023 03/02/2023 Assessment Noted Time PHQ-9 Depression Total Score: 2 12/10/19 25 2:46 PM FLYING SHEAR OPERATOR documented as of this encounter Care Teams Criminal Judge Relationship Specialty Start Date End Date Renzo Andres M.D. [address] [place] [phone] PCP - General Family Medicine 04/25/23 documented as of this encounter
--- OUTSIDE RECORDS SUMMARY | 2025-07-19 18:12 | XMS_ITS | Encounter Summary ---
Author Organization [facility] Address [address] [place] [phone] Care Team Providers Care Cloth Calender Name Role Phone Renzo Andres M.D. 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 [address] [place] [address] Phone: tel: fax: [place] Referral ID Status Reason Start Date Expiration Date V isits Requested Visits Authorized [id number] Closed Specialty Services Required 07/06/2025 01/05/2027 1 1 Scheduling Instructions GIH consult should be scheduled after all testing Reason for Visit * Reason Onset Date Comments Post Hospital Follow-up 07/06/2025 Encounter Details Date Type Department Care Team (Latest Contact Info) Description 07/06/2025 Clinical Communication [facility], Ninth Floor [address] [place] [address] Jessica Avila APRN, C.N.P., M.S.N. [address] [place] [address] Post Hospital Follow-up Social History Tobacco Use Types Packs/Day Years [...] things needed for daily living? No 07/02/2025 [facility] Utilities Answer Date Recorded In the past 12 months has th e electric, gas, oil, or water company threatened to shut off services in your home? No 07/02/2025 Depression Answer Date Recor ded PHQ-9 Total Score (max 27) 12 07/08 Housing Stability Answer Date Recorded What is your living situation today? I have a [facility] place to live 07/02/2025 Education Answer Date Recorded What is the highest level of school you have completed or the highest degree you have received? Some college, no degree 04/24/2019 Comments No Sex and Gender Information Value Date Recorded Sex Assigned at Female 12/26/2018 8:37 PM GASKET SUPERVISOR Legal Sex Female 2:43 PM GASKET SUPERVISOR Gender Identity Female 12/26/2018 8:37 PM GASKET SUPERVISOR Sexual Orientation Choose not to disclose 2020 3:46 PM CDT documented as of this encounter Plan of Treatment Upcoming Encounters Date Type Department Care Team (Late st Contact Info) Description 07/21/2025 11:00 AM CDT Telemedicine Department of Palliative Care in [place], [place] [address] [place] [phone] Meghan Osorio M.D. [address] [place] [phone] 07/22/2025 8:40 AM CDT Lab Department of Laboratory Medicine and Pathology, [facility], in [place], [place] [address] [place] [phone] Becky Hernandez APRN, C.N.P., D.N.P. [address] [place] [phone] 07/22/2025 9:30 AM CDT [facility] in [place], [place] [address] [place] [phone] Becky Hernandez APRN, C.N.P., D.N.P. [address] [place] [phone] 07/30/2025 2:00 PM CDT Appointment Division of Gastroenterology in [place], [place] [address] [place] [phone] Derrick Cruz Jr., M.D., M.S. [address] [place] [phone] 08/11/2025 9:00 AM CDT Nurse Only Section of Infectious Diseases in [place], [place] [address] [place] [address] Jessica Rousseau M.B.B.S. [address] [place] [phone] 08/11/2025 1:00 PM CDT Clinical Support Department of Palliative Care in [place], [place] [address] [place] [address] Uma Aly APRN, JamariNKatalinaP., M.S.N. [address] [place] [phone] 08/13/2025 10:00 AM CDT Lab Department of Laboratory Medicine and Pathology, [facility] in [place], [place] [address] [place] [phone] Jessica Rousseau M.B.B.S. [address] [place] [phone] 08/13/2025 10:30 AM CDT Office [facility] in [place], [place] [address] [place] [address] Jessica Rousseau M.B.B.S. [address] [place] [phone] 08/13/2025 11:00 AM CDT Nurse Only Pedro [facility] for Transplantation and Clinical Regeneration in [place], [place] [address] [place] [address] Jessica Rousseau M.B.B.S. [address] [place] [phone] 08/13/2025 11:30 AM CDT Office Visit [facility] Transplantation and Clinical Regeneration in [place], [place] [address] [place] [address] Jessica Rousseau M.B.B.S. [address] [place] [address] 09/25/2025 10:30 AM GASKET SUPERVISOR Telemedicine [facility] [place] Transplantation and Clinical Regeneration in [place], [place] [address] [place] [address] Jessica Rousseau M.B.B.S. 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 [address] [place] [phone] PCP - General Family Medicine 04/25/23 documented as of this encounter
--- OUTSIDE RECORDS SUMMARY | 2025-07-19 18:12 | XMS_ITS | Encounter Summary ---
Author Organization [facility] Address [address] [place] [address] Care Team Providers Care Chemical Engineering Technologist Name Role Phone Renzo Andres M.D. Primary Care Provider Encounter Details Date Type Department Care Team (Latest Contact Info) Description 07/02/2025 Clinical Communication Pedro Nazario [facility] in [place], [place] [address] [place] [phone] Jessica Rousseau M.B.B.S. [address] [place] [address] Social History Tobacco Use Types Packs/Day Years [...] things needed for daily living? No 07/02/2025 [facility] Utilities Answer Date Recorded In the past 12 months has th e electric, gas, oil, or water company threatened to shut off services in your home? No 07/02/2025 Depression Answer Date Recor ded PHQ-9 Total Score (max 27) 2 12/10 Housing Stability Answer Date Recorded What is your living situation today? [facility] a [facility] place to live 07/02/2025 Education Answer Date Recorded What is the highest level of school you have completed or the highest degree you have received? Some college, no degree 04/24/2019 Comments No Sex and Gender Information Value Date Recorded Sex Assigned at Female 12/26/2018 8:37 PM LEASING COORDINATOR Legal Sex Female 2:43 PM LEASING COORDINATOR Gender Identity Female 12/26/2018 8:37 PM LEASING COORDINATOR Sexual Orientation Choose not to disclose 2020 3:46 PM CDT documented as of this encounter Plan of Treatment Upcoming Encounters Date Type Department Care Team (Late st Contact Info) Description 07/21/2025 11:00 AM CDT Telemedicine Department of Palliative Care in [place], [place] 200 [place] [address] Meghan Osorio M.D. 200 [place] [address] 07/22/2025 8:40 AM CDT Lab Department of Laboratory Medicine and Pathology, [facility], in [place], [place] [address] [place] [address] Becky Hernandez APRN, C.N.PKatalina, D.N.P. [address] [place] [phone] 07/22/2025 9:30 AM CDT Office Visit [facility] Aravind [facility] in [place], [place] [address] [place] [address] Becky Hernandez APRN, C.N.Jean., D.N.P. [address] [place] [phone] 07/30/2025 2:00 PM CDT Appointment Division of Gastroenterology in [place], [place] [address] [place] [phone] Derrick Cruz Jr., M.D., M.S. [address] [place] [phone] 08/11/2025 9:00 AM CDT Nurse Only Section of Infectious Diseases in [place], [place] [address] [place] [phone] Jessica Rousseau M.B.B.S. [address] [place] [phone] 08/11/2025 1:00 PM CDT Clinical Support Department of Palliative Care in [place], [place] [address] [place] [phone] Uma Aly APRN, C.N.P., M.S.N. [address] [place] [phone] 08/13/2025 10:00 AM CDT Lab Department of Laboratory Medicine and Pathology, [facility], in [place], [place] [address] [place] [address] Jessica Rousseau M.B.B.S. [address] [place] [phone] 08/13/2025 10:30 AM CDT [facility] in [place], [place] [address] [place] [address] Jessica Rousseau M.B.B.S. [address] [place] [phone] 08/13/2025 11:00 AM CDT [facility] in [place], [place] [address] [place] [address] Jessica Rousseau M.B.B.S. [address] [place] [phone] 08/13/2025 11:30 AM CDT [facility] in [place], [place] [address] [place] [address] Jessica Rousseau M.B.B.S. [address] [place] [phone] 09/25/2025 10:30 AM LEASING COORDINATOR Telemedicine Pedro [facility] in [place], [place] [address] [place] [address] Jessica Rousseau M.B.B.S. [address] [place] [phone] documented as of this encounter Visit Diagnoses Not on filedocumented in this encounter Additional Health Concerns Infection Onset Date Last Indicated Resolved Time Protective Environment 03/02/2023 03/02/2023 Assessment Noted Time PHQ-9 Depression Total Score: 2 12/10/19 25 2:46 PM LEASING COORDINATOR documented as of this encounter Care Teams Chemical Engineering Technologist Relationship Specialty Start Date End Date Renzo Andres M.D. [address] [place] [phone] PCP - General Family Medicine 04/25/23 documented as of this encounter
--- OUTSIDE RECORDS SUMMARY | 2025-07-19 18:12 | XMS_ITS | Encounter Summary ---
Author Organization [facility] Address [address] [place] [address] Care Team Providers Care Email Developer Name Role Phone Renzo Andres M.D. Primary Care Provider [phone] Reason for Referral * Transplant (Routine) - Closed Specialty Diagnoses / Procedures Referred By Contac t Referred To Contact Transplant Jessica Rousseau M.B.B.S. [address] [place] [phone] Phone: tel: fax: [facility] Referral ID Status Reason Start Date Expiration Date Visits Re quested Visits Authorized [id number] Closed 07/02/2025 01/01/2027 1 1 Scheduling Instructions Please schedule with BMT MD for 30 minutes. Patient type: Allo Over 100 Visit Type: Return Scheduling Preferences Option 1: MD/RN no joint visit Option 2: MD/RN no joint visit Other Scheduling Instructions:please schedule with DR Rousseau in 2 weeks in person Primary MD:DR Rousseau RN Team: Rst Bmt Team Two [place] * Outpatient (Routine) - Closed Specialty Diagnoses / Procedures Referred By Contac t Referred To Contact Pharmacy Jessica Rousseau M.B.B.S. [address] [place] [phone] Phone: tel: fax: [facility] Referral ID Status Reason Start Date Expiration Date Visits Re quested Visits Authorized [id number] Closed 07/02/2025 01/01/2027 1 1 Scheduling Instructions Please schedule with pharmacist for 30 minutes. Patient type: Allo Over 100 Visit Type: Return Scheduling Preferences Option 1: MD/RN no joint visit Option 2: MD/RN no joint visit Other Scheduling Instructions:please schedule with DR Rousseau in 2 weeks in person Primary MD:DR Rousseau RN Team: Rst Bmt Team Two [place] * Transplant (Routine) - Closed Specialty Diagnoses / Procedures Referred By Contac t Referred To Contact Transplant Jessica Rousseau M.B.B.S. 200 [place] [address] Phone: tel: fax: [facility] Referral ID Status Reason Start Date Expiration Date Visits Re quested Visits Authorized [id number] Closed 07/02/2025 01/01/2027 1 1 Scheduling Instructions Please schedule with RNCC for 30 min Patient type: Allo Over 100 Visit Type: Return Scheduling Preferences Option 1: MD/RN no joint visit Option 2: MD/RN no joint visit Other Scheduling Instructions:please schedule with DR Rousseau in 2 weeks in person Primary MD:DR Rousseau RN Team: Rst Bmt Team Two [place] Encounter Details Date Type Department Care Team (Late st Contact Info) Description 07/02/2025 Orders Only Pedro Fatima [facility] Transplantation and Clinical Regeneration in [place], [place] [address] [place] [phone] Daniela Mercer R.N., BMT-CN [address] [place] [phone] 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 No 07/02/2025 [facility] Utilities Answer Date Recorded In the past 12 months has [facility] electric, gas, oil, or water company threatened to shut off services in your home? No 07/02/2025 Depression Answer Date Recor ded PHQ-9 Total Score (max 27) 12 07/08 Housing Stability Answer Date Recorded What is your living situation today? I [facility] a [facility] place to live 07/02/2025 Education Answer Date Recorded What is the highest level of school you have completed or the highest degree you have received? Some college, no degree 04/24/2019 Comments No Sex and Gender Information Value Date Recorded Sex Assigned at Female 12/26/2018 8:37 PM STORAGE ENGINEER Legal Sex Female 2:43 PM STORAGE ENGINEER Gender Identity Female 12/26/2018 8:37 PM STORAGE ENGINEER Sexual Orientation Choose not to disclose 2020 3:46 PM CDT documented as of this encounter Plan of Treatment Upcoming Encounters Date Type Department Care Team (Late st Contact Info) Description 07/21/2025 11:00 AM CDT Telemedicine Department of Palliative Care in [place], [place] [address] [place] [phone] Meghan Osorio M.D. [address] [place] [phone] 07/22/2025 8:40 AM CDT Lab Department of Laboratory Medicine and Pathology, [facility], in [place], [place] [address] [place] [phone] Becky Hernandez APRN, C.N.P., D.N.P. [address] [place] [phone] 07/22/2025 9:30 AM CDT [facility] in [place], [place] [address] [place] [phone] Becky Hernandez APRN, C.N.P., D.N.P. [address] [place] [phone] 07/30/2025 2:00 PM CDT Appointment Division of Gastroenterology in [place], [place] [address] [place] [phone] Derrick Cruz Jr., M.D., M.S. [address] [place] [phone] 08/11/2025 9:00 AM CDT Nurse Only Section of Infectious Diseases in [place], [place] [address] [place] [phone] Jessica Rousseau M.B.B.S. [address] [place] [phone] 08/11/2025 1:00 PM CDT Clinical Support Department of Palliative Care in [place], [place] [address] [place] [address] Uma Aly APRN, JamariNKatalinaP., M.S.N. [address] [place] [phone] 08/13/2025 10:00 AM CDT Lab Department of Laboratory Medicine and Pathology, [facility], in [place], [place] [address] [place] [address] Jessica Rousseau M.B.B.S. [address] [place] [phone] 08/13/2025 10:30 AM CDT Office Visit [facility] in [place], [place] [address] [place] [address] Jessica Rousseau M.B.B.S. [address] [place] [phone] 08/13/2025 11:00 AM CDT Nurse Only [facility] in [place], [place] [address] [place] [address] Jessica Rousseau M.B.B.S. [address] [place] [phone] 08/13/2025 11:30 AM CDT Office Visit [facility] in [place], [place] [address] [place] [address] Jessica Rousseau M.B.B.S. [address] [place] [phone] 09/25/2025 10:30 AM STORAGE ENGINEER Telemedicine Pedro Aravind [facility] for Transplantation and Clinical Regeneration in [place], [place] [address] [place] [address] Jessica Rousseau M.B.B.S. [address] [place] [address] Scheduled Referrals Name Type Priority Associated Diagnoses Order Schedule Transplant Bone marrow office visit (clinic) Outpatient Referral Routine Expected: 07/16/2025 (Approximate), Expires: 10/14/2025 Pharmacy - Medication therapy management - transplant office visit (clinic) Outpatient Referral Routine Expected: 07/16/2025 (Approximate), Expires: 10/14/2025 Transplant Bone marrow office visit (clinic) Outpatient Referral Routine Expected: 07/16/2025 (Approximate), Expires: 10/14/2025 documented as of this encounter Results * EBV DNA Detect/Quant (07/16/2025 7:56 AM CDT) [facility] EBV DNA Detect/Quant, P Undetected Undetected IU/mL 07/17/2025 1:06 PM CDT [facility] Comment: Result in log IU/mL is Undetected. ----ADDITIONAL INFORMATION---- The quantification range of this assay is 35 to 100,000,000 IU/mL (1.54 log to 8.00 log IU/mL). Testing was performed using the lucrecia EBV test ([employer] Blood (Blood, Venous) 07/16/2025 7:56 AM CDT 07/16/2025 10:03 AM CDT Jessica DowlingBKatalinaS. LAB MICROBIOLOGY - BLOOD O RDERABLES Final Result [facility] [address] [place] [address] [facility] [address] [place] [address] [place] [address] * CMV DNA Detect / Quant, Plasma (07/16/2025 7:56 AM CDT) [facility] CMV DNA Detect/Quant, P Undetected Undetected IU/mL 07/17/2025 12:41 PM CDT [facility] Comment: Result in log IU/mL is Undetected. ----ADDITIONAL INFORMATION---- The quantification range of this assay is 35 to 10,000,000 IU/mL (1.54 log to 7.00 log IU/mL). Testing was performed using the lucrecia CMV test ([employer] Blood (Blood, Venous) 07/16/2025 7:56 AM CDT 07/16/2025 11:16 AM CDT us Jessica DowlingB.S. LAB MICROBIOLOGY - BLOOD O RDERABLES Final Result Performing Organization Address City/[facility]/ZIP Co de Phone Number [facility] [address] [place] [address] [facility] [address] [place] [address] [place] [address] * LD (Lactate Dehydrogenase) (07/16/2025 7:56 AM CDT) [facility] LD 197 122 - 222 U/L 07/16/2025 9:12 AM CDT DTL Blood (Blood, Venous) 07/16/2025 7:56 AM CDT 07/16/2025 8:51 AM CDT us Jessica DowlingB.S. LAB BLOOD NON ADD-ON Final Result [facility] [address] [place] [address], [place] [facility] [place] [address] [place] [address] * (ABNORMAL) Glucose, Fasting (07/16/2025 7:56 AM CDT) Glucose, P 130(H) 70 - 100 mg/dL 07/16/2025 8:33 AM CDT DTL Last Intake 2 hr 07/16/2025 8:08 AM CDT DTL Blood (Blood, Venous) 07/16/2025 7:56 AM CDT 07/16/2025 8:08 AM CDT Jessica LiconaSKatalina LAB BLOOD NON ADD-ON Final Result [facility] [address] [place] [address], [facility] [place] [facility] [place] [address] [place] [address] * CBC no call back, reflex T/S HGB <8 (07/16/2025 7:56 AM CDT) Pathologist [facility] Hemoglobin 12.3 11.6 - 15.0 g/dL 07/16/2025 8:22 AM CDT DTL Hematocrit 38.4 35.5 - 44.9 % 07/16/2025 8:22 AM CDT DTL Erythrocytes 4.50 3.92 - 5.13 x10(12)/L 07/16/2025 8:22 AM CDT DTL MCV 85.3 78.2 - 97.9 fL 07/16/2025 8:22 AM CDT DTL RBC Distrib Width 15.0 12.2 - 16.1 % 07/16/2025 8:22 AM CDT DTL Platelet Count 217 157 - 371 x10(9)/L 07/16/2025 8:22 AM CDT DTL Leukocytes 7.6 3.4 - 9.6 x10(9)/L 07/16/2025 8:22 AM CDT DTL Neutrophils 5.65 1.56 - 6.45 x10(9)/L 07/16/2025 8:22 AM CDT DHPM Lymphocytes 1.41 0.95 - 3.07 x10(9)/L 07/16/2025 8:22 AM CDT DTL Monocytes 0.49 0.26 - 0.81 x10(9)/L 07/16/2025 8:22 AM CDT DTL Eosinophils 0.05 0.03 - 0.48 x10(9)/L 07/16/2025 8:22 AM CDT DTL Basophils 0.04 0.01 - 0.08 x10(9)/L 07/16/2025 8:22 AM CDT DTL Blood (Blood, Venous) 07/16/2025 7:56 AM CDT 07/16/2025 8:11 AM CDT Jessica DowlingB.S. LAB BLOOD NON ADD-ON Final Result [facility] [address] [place] [address] * Bilirubin, Total (07/16/2025 7:56 AM CDT) Bilirubin, Total, P <0.2 0.0 - 1.2 mg/dL 07/16/2025 10:28 AM CDT DTL Blood (Blood, Venous) 07/16/2025 7:56 AM CDT 07/16/2025 8:12 AM CDT Jessica DowlingB.S. LAB BLOOD ADD-ON Final Res ult [facility] 200 [place], [place] [phone] [place] [address] * AST (Aspartate Aminotransferase) (07/16/2025 7:56 AM CDT) Aspartate Aminotransferase (AST), P 17 8 - 43 U/L 07/16/2025 10:59 AM CDT DTL Blood (Blood, Venous) 07/16/2025 7:56 AM CDT 07/16/2025 8:12 AM CDT Jessica Bustillos.S. LAB BLOOD ADD-ON Final Res ult [facility] [address] [place] [address], [facility] 200 [place] [address] * Sodium (07/16/2025 7:55 AM CDT) Sodium, S 139 135 - 145 mmol/L 07/16/2025 8:56 AM CDT DTL Blood (Blood, Venous) 07/16/2025 7:55 AM CDT 07/16/2025 8:09 AM CDT Jessica Bustillos.S. LAB BLOOD ADD-ON Final Res ult Performing Organization Address City/[facility]/ZIP Co de Phone Number [facility] [address] [place] [address], [facility] 200 [place] [address] * Potassium (07/16/2025 7:55 AM CDT) Potassium, S 3.9 3.6 - 5.2 mmol/L 07/16/2025 8:56 AM CDT DTL Blood (Blood, Venous) 07/16/2025 7:55 AM CDT 07/16/2025 8:09 AM CDT Jessica LiconaS. LAB BLOOD ADD-ON Final Res ult [facility] [address] [place] [address], [facility] [address] [place] [address] * Magnesium (07/16/2025 7:55 AM CDT) Magnesium, S 2.0 1.7 - 2.3 mg/dL 07/16/2025 8:56 AM CDT DTL Blood (Blood, Venous) 07/16/2025 7:55 AM CDT 07/16/2025 8:09 AM CDT Jessica DowlingB.S. LAB BLOOD ADD-ON Final Res ult Performing Organization Address [facility] Co de Phone Number [facility] 200 [place] [address], [facility] [place] [address] * Creatinine with Estimated GFR (07/16/2025 7:55 AM CDT) Creatinine 0.86 0.59 - 1.04 mg/dL 07/16/2025 8:56 AM CDT DTL Estimated GFR (eGFR) 90 >=60 mL/min/BSA 07/16/2025 8:56 AM CDT DTL Comment: Estimated GFR calculated using the 2020 CKD_EPI creatinine equation. Blood (Blood, Venous) 07/16/2025 7:55 AM CDT 07/16/2025 8:09 AM CDT Jessica Bustillos.S. LAB BLOOD ADD-ON Final Res ult Performing Organization Address [facility] Co de Phone Number [facility] 200 [place] [address], [facility] [place] [facility] [place] 200 [place] [address] * Calcium, Total (07/16/2025 7:55 AM CDT) Calcium, Total, S 9.3 8.6 - 10.0 mg/dL 07/16/2025 8:56 AM CDT DTL Blood (Blood, Venous) 07/16/2025 7:55 AM CDT 07/16/2025 8:09 AM CDT Jessica LiconaS. LAB BLOOD ADD-ON Final Res ult [facility] 200 [place] [address], [facility] 200 [place] [address] * BUN (Blood Urea Nitrogen) (07/16/2025 7:55 AM CDT) BUN (Blood Urea Nitrogen), S 16 6 - 21 mg/dL 07/16/2025 8:56 AM CDT DTL Blood (Blood, Venous) 07/16/2025 7:55 AM CDT 07/16/2025 8:09 AM CDT Jessica Bustillos.S. LAB BLOOD ADD-ON Final Res ult Performing Organization Address City/[facility]/ZIP Co de Phone Number [facility] 200 [place] [address], [facility] 200 [place] [address] * ALT (Alanine Aminotransferase) (07/16/2025 7:55 AM CDT) Pathologist [facility] Alanine Aminotransferase (ALT), S 39 7 - 45 U/L 07/16/2025 8:56 AM CDT DTL Blood (Blood, Venous) 07/16/2025 7:55 AM CDT 07/16/2025 8:09 AM CDT Jessica LiconaS. LAB BLOOD ADD-ON Final Res ult [facility] 200 [place] [address], [facility] 200 [place] [address] * Alkaline Phosphatase (07/16/2025 7:55 AM CDT) Alkaline Phosphatase, S 103 35 - 104 U/L 07/16/2025 8:56 AM CDT DTL Blood (Blood, Venous) 07/16/2025 7:55 AM CDT 07/16/2025 8:09 AM CDT Jessica DowlingB.S. LAB BLOOD ADD-ON Final Res ult Performing Organization Address City/[facility] Co de Phone Number [facility] 200 [place] [address], [facility] 200 [place] [address] * Albumin (07/16/2025 7:55 AM CDT) [facility] Albumin, S 4.3 3.5 - 5.0 g/dL 07/16/2025 8:56 AM CDT DTL Blood (Blood, Venous) 07/16/2025 7:55 AM CDT 07/16/2025 8:09 AM CDT Jessica DowlingB.S. 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 [address] [place] [phone] PCP - General Family Medicine 04/25/23 documented as of this encounter
--- OUTSIDE RECORDS SUMMARY | 2025-07-19 18:12 | XMS_ITS | Clinical Summary ---
Author Organization [facility] Address [address] [place] [address] Care Team Providers Care Casing Runner Name Role Phone Renzo Andres M.D. Primary Care Provider [phone] Source Comments Patient records contain information from all sites at [facility]. For routine questions regarding patient records, call [phone] during business hours, M-F 8:00 AM - 5:00 PM Central Time. Record requests for emergency care only can be directed to [phone] at any time.[facility] Allergies Active Allergy Reactions Criticality Noted Date [...] (two) times a day. 60 tablet 11 Active ARIPiprazole (Abilify) 10 mg tablet Take [...] tablet Active melatonin 5 mg tablet Take 5-10 mg by mouth at bedtime. 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 60 tablet 1 Active naloxone (Narcan) 4 mg/actuation nasal spray Administer 1 spray (4 mg total) into nostril(s) once for 1 dose. Use 1 spray in 1 nostril. Repeat with second device in other nostril after 2-3 minutes if no or minimal response. 2 each Active Additional Information Patient not taking.Reported on 06/30/2025 ondansetron ODT (Zofran-ODT) 4 mg disintegrating tablet Dissolve 1-2 tablets (4-8 mg total) in the mouth every 8 (eight) hours as needed for nausea or vomiting. 20 tablet 1 Active Additional Information Patient not taking.Reported on 07/16/2025 prochlorperazine (Compazine) 10 mg tablet Take 1 tablet (10 mg total) by mouth every 6 (six) hours as needed for nausea. 30 tablet 2 Active HYDROmorphone (Dilaudid) 1 mg/mL liquidIndications :Chronic Pain/Nonacute Pain Take 2 mL (2 mg total) by mouth every 6 (six) hours as needed for pain Indication: Chronic Pain/Nonacute Pain. 60 mL Active Additional Information Patient taking differently:2 mg oral Every 6 hours PRN, pain,Patient taking 4 mg every 6 hours, Indications: Chronic Pain/Nonacute Pain, Reported on 07/11/2025 alum-mag hydroxide-simeth (Maalox) 200-200-20 mg/5 mL suspension Take 30 mL by mouth every 4 (four) hours as needed for indigestion (dyspepsia). 354 mL 1 Active Additional Information Patient not taking.Reported on 07/16/2025 hyoscyamine (Levsin) 0.125 mg tablet Take 1 tablet (0.125 mg total) by mouth every 4 (four) hours as needed for bladder spasms. For abdominal pain/cramping/ spasm 30 tablet 1 Active OLANZapine (ZyPREXA) 5 mg tablet Take 1 tablet (5 mg total) by mouth at bedtime. 30 tablet 1 Active Additional Information Patient not taking.Reported on 07/16/2025 predniSONE (Deltasone) 10 mg tablet Take 1 tablet (10 mg total) by mouth as directed. Take 3 tablets 07/06-07/12, 2 tablets 07/13-07/19, 1 tablet 07/20-07/26, 1/2 tab 07/27 -08/02 and then stop 45 tablet Active buprenorphine (Butrans) 5 mcg/hourIndicatio ns:Chronic Pain/Nonacute Pain Place 1 patch on the skin once a week Indication: Chronic Pain/Nonacute Pain. 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 90 tablet 3 Active hydroCHLOROthiazi de (HydroDiuril) 25 mg tablet Take 1 tablet (25 mg total) by mouth daily. 30 tablet 2 Active pantoprazole (Protonix) 40 mg EC tablet Take 1 tablet (40 mg total) by mouth 2 (two) times a day as needed for heartburn. Active Additional Information Patient not taking.Reported on 07/16/2025 polyethylene glycol-electrolyt es (Golytely) 236-22.74-6.74 -5.86 gram solution Take first portion of the prep at 4pm the evening before and start second portion 3 to 6 hours before and finish 2 hours prior to report time. 4000 mL Active HYDROmorphone (Dilaudid) 2 mg tabletIndications :Chronic Pain/Nonacute Pain Take 1 tablet (2 mg total) by mouth every 6 (six) hours as needed for pain for up to 14 days Indication: Chronic Pain/Nonacute Pain. 28 tablet 2024 Active HYDROmorphone (Dilaudid) 1 mg/mL liquidIndications :Chronic Pain/Nonacute Pain Take 0.5 mL (0.5 mg total) by mouth daily as needed for pain Indication: Chronic Pain/Nonacute Pain. 10 mL 2024 Discontinued(R eorder) loperamide (Imodium A-D) 2 mg capsule Take 1 capsule (2 mg total) by mouth every 2 (two) hours as needed for diarrhea. Take with occurrence of diarrhea. May take up to 16 mg, or 8 doses daily. 2024 Discontinued(S top Taking at Discharge) prochlorperazine (Compazine) 10 mg tablet Take 1 tablet (10 mg total) by mouth every 6 (six) hours as needed for nausea. 30 tablet 1 2024 Discontinued(R eorder) pantoprazole (Protonix) 40 mg EC tablet Take 1 tablet (40 mg total) by mouth 2 (two) times a day before morning and evening meals. 60 tablet 1 05/29/20 25 4:28 PM CDT 2024 Discontinued predniSONE (Deltasone) 10 mg tablet Take 3 tablets (30 mg total) by mouth daily for 4 days, THEN 2 tablets (20 mg total) daily for 3 days, THEN 1 tablet (10 mg total) daily for 3 days. 21 tablet 025 2024 Discontinued(T herapy completed) acetaminophen (TylenoL) 325 mg tablet Take 2 tablets (650 mg total) by mouth every 4 (four) hours as needed for mild pain or score 1-3 of 10. 2024 Discontinued(A lternate therapy) alum-mag hydroxide-simeth (Maalox) 200-200-20 mg/5 mL suspension Take 30 mL by mouth every 4 (four) hours as needed for indigestion (dyspepsia). 2024 Discontinued(T herapy completed) diphenhydrAMINE (BenadryL) 25 mg capsule Take 1 capsule (25 mg total) by mouth every 6 (six) hours as needed for itching. 2024 Discontinued(S top Taking at Discharge) docusate sodium (Colace) 100 mg capsule Take 1 capsule (100 mg total) by mouth 2 (two) times a day. 2024 Discontinued ibuprofen 400 mg tablet Take 1 tablet (400 mg total) by mouth every 6 (six) hours as needed for moderate pain or score 4-6 of 10. 2024 Discontinued(S top Taking at Discharge) sennosides-docusa te sodium (Senokot-S) 8.6-50 mg per tablet Take 1 tablet by mouth 2 (two) times a day as needed for constipation. 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 90 tablet 2024 Discontinued(R eorder) buprenorphine (Butrans) 5 mcg/hourIndicatio ns:Chronic Pain/Nonacute Pain Place 1 patch on the skin once a week Indication: Chronic Pain/Nonacute Pain. 4 patch 2024 Discontinued(R eorder) lidocaine (Lidoderm) 5 % adhesive patch,medicatedIn dications:Transpl ant Bone Marrow Allogeneic (HCC) Place 1 patch on the skin daily. Apply to affected area . 30 patch 2024 Discontinued(S top Taking at Discharge) budesonide (Entocort EC) [address] capsule Take 1 capsule (3 mg total) by mouth daily. 30 capsule 2 025 2024 Discontinued(S top Taking at Discharge) polyethylene glycol-electrolyt es (Golytely) 236-22.74-6.74 -5.86 gram solution Take first portion of the prep at 4pm the evening before and start second portion 3 to 6 hours before and finish 2 hours prior to report time. 4000 mL 025 2024 Discontinued(D uplicate order) HYDROmorphone (Dilaudid) 1 mg/mL liquidIndications :Chronic Pain/Nonacute Pain Take 0.5 mL (0.5 mg total) by mouth daily as needed for pain Indication: Chronic Pain/Nonacute Pain. 10 mL 2024 Discontinued budesonide (Entocort EC) [address] capsule Take 2 capsules (6 mg total) by mouth daily. 60 capsule 2 2024 Discontinued(S top Taking at Discharge) HYDROmorphone (Dilaudid) 1 mg/mL liquidIndications :Chronic Pain/Nonacute Pain Take 2 mL (2 mg total) by mouth every 6 (six) hours as needed for pain Indication: Chronic Pain/Nonacute Pain. 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 30 tablet 1 025 2024 Discontinued(S top Taking at Discharge) pantoprazole (Protonix) 40 mg EC tablet Take 1 tablet (40 mg total) by mouth 2 (two) times a day before morning and evening meals. 60 tablet 1 2024 Discontinued sennosides-docusa te sodium (Senokot-S) 8.6-50 mg per tablet Take 1 tablet by mouth 2 (two) times a day. 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 140 mL 025 2024 Discontinued(S top Taking at Discharge) cyclobenzaprine (FlexeriL) 5 mg tabletIndications :Transplant Stem Cell (HCC),Pain Neuropathic,Leuke kalpana Myeloid Chronic BCR/ABL Positive Remission (HCC) Take 1 tablet (5 mg total) by mouth 2 (two) times a day as needed for muscle spasms. 5 tablet 025 2024 Discontinued(S top Taking at Discharge) ruxolitinib (Jakafi) 5 mg tablet Take 1 tablet (5 mg total) by mouth 2 (two) times a day. Take at about the same time each day. Take with or without food. 60 tablet 1 025 2024 Discontinued(S top Taking at Discharge) OLANZapine (ZyPREXA) 2.5 mg tablet Take 1 tablet (2.5 mg total) by mouth 4 (four) times a day as needed (nausea). 16 tablet 1 025 2024 Discontinued Active Problems Patient Care [...] RSV: MMR: Local Lab/Provider: Dr. Ermelinda Pierre [address] [address] Problem Noted Date Diagnosed Date Pain Left [...] Encounters Date Type Department Care Team Description 07/19/2025 [facility] [place], [place] [address] [place] [address] Pedro Scruggs, R.N. 07/19/2025 Clinical Communication [facility], Ninth Floor [address] [place] [address] Jaya Perkins M.S.N., R.N. 07/19/2025 Refill [facility], Ninth Floor [address] [place] [address] Analia Carter APRN, C.N.P. Med Refill 07/17/2025 Orders Only [facility] Transplantation and Clinical Regeneration in [place], [place] [address] [place] [address] Jessica Rousseau M.B.B.S. 07/16/2025 9:40 AM CDT Comprehensive Visit Division of Gastroenterology in [place], [place] [address] [place] [address] Jessica Avila APRN, C.N.P., M.S.N. Derrick Cruz Jr., M.D., M.S. 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 [place]cross, Rachelle L, APRN, C.N.Jean., D.N.P. Lida Olivas R.N. 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 Braun, Jade L, Greg., R.Ph. 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 Med Refill 07/16/2025 Refill [facility], Tenth Floor [address] [place] [address] Jessica Avila APRN, C.N.Delbert, M.S.N. Med Refill 07/15/2025 Refill [facility] Transplantation and Clinical Regeneration in [place], [place] [address] [place] [phone] Lida Olivas R.NKatalina Med Refill 07/14/2025 8:00 AM CDT Telemedicine Department of Palliative Care in [place], [place] [address] [place] [phone] Monica Tolbert M.D., M.S. Meghan Osorio M.D. 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 Med Refill 07/11/2025 9:45 AM CDT - 07/11/2025 11:59 PM CDT Hospital Encounter [facility], Ninth Floor [address] [place] [address] Jessica Rousseau M.B.B.S. Lucy Stout, R.N., BMT-CN, O.C.N. 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 07/10/2025 Clinical Communication [facility], Ninth Floor [address] [place] [address] Lucy Stout, R.N., BMT-CN, O.C.N. 07/08/2025 Clinical Communication [facility] [address] [place] [phone] Adrián Arechiga, Pharm.D., R.Ph. Medication Problem 07/08/2025 Clinical Communication [facility] for Trans[facility] Clinical [facility]eneration in [place], [place] [address] [place] [phone] Jessica Rousseau M.B.B.S. Phone Contact (New Symptoms ) 07/06/2025 Clinical Communication [facility], Ninth Floor [address] [place] [address] Jessica Avila APRN, C.N.P., M.S.N. Post Hospital Follow-up 07/02/2025 8:48 PM CDT - 07/06/2025 12:56 PM CDT Hospital Encounter [facility], Tenth Floor [address] [place] [address] Armond James M.D. Geo Mcdowell M.D., Ph.D. Discharge Disposition: Home or Self Care 07/02/2025 Clinical Communication [facility], Ninth Floor [address] [place] [address] Jyaa Perkins, M.S.Niko., R.N. 07/02/[address] [facility] Clinical Regeneration in [place], [place] [address] [place] [phone] Jessica Rousseau M.B.B.S. Phone Contact 07/02/[address] [facility] in [place], [place] [address] [place] [phone] Jessica Rousseau M.B.B.S. 07/02/[address] [facility] in [place], [place] [address] [place] [phone] Jessica Rousseau M.B.B.S. 07/02/[address] 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 07/01/2025 Orders Only Department of Cardiovascular Medicine in [place], [place] [address] [place] [address] Leighton Andres M.D. 07/01/2025 Clinical Communication [facility] Transplantation and Clinical Regeneration in [place], [place] [address] [place] [address] Uma Goel R.N. 07/01/2025 Clinical Communication [facility] Transplantation and Clinical Regeneration in [place], [place] [address] [place] [address] Jessica Rousseau M.B.B.S. Phone Contact (Abdominal Pain ) 06/30/2025 7:31 PM CDT - 06/30/2025 8:06 PM CDT Emergency [facility] Emergency Department [address] [place] [address] Discharge Disposition: Left Against Medical Advice or Discontinued Care 06/30/2025 4:15 PM CDT - 06/30/2025 7:30 PM CDT Hospital Encounter [facility], [facility], Ninth Floor [address] [place] [address] Jimmy Rodriguez M.D. 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 Transplant Stem Cell (HCC); Transplant Bone Marrow Allogeneic (HCC) Discharge Disposition: Home or Self Care 06/30/2025 12:34 PM CDT - 06/30/2025 1:43 PM CDT Hospital Encounter [facility], Ninth Floor [address] [place] [address] Mckenzie Melvin APRN, C.N.Jean., D.N.P. 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 Trans[facility] and Clinical Regeneration in [place], [place] [address] [place] [address] Jessica Rousseau M.B.B.S. Transplant Bone Marrow Allogeneic (HCC) (Primary Dx) 06/30/2025 11:00 AM CDT Nurse Only [facility] Transplantation and Clinical Regeneration in [place], [place] [address] [place] [address] Jessica Rousseau M.B.B.S. Haven Ramirez, R.N. Nurse Visit 06/30/2025 Clinical Communication Department of Palliative Care in [place], [place] [address] [place] [address] Uma Aly APRN, C.NLuigi., M.S.N. 06/30/2025 Orders Only [facility], Ninth Floor [address] [place] [address] Jimmy Rodriguez M.D. Transplant Bone Marrow Allogeneic (HCC) (Primary Dx) 06/30/2025 Orders Only [facility], Ninth Floor [address] [place] [address] Varghese Fields R.N. Transplant Bone Marrow Allogeneic (HCC) (Primary Dx) 06/30/2025 Orders Only [facility] Transplantation and Clinical Regeneration in [place], [place] [address] [place] [address] Jessica Rousseau M.B.B.S. Transplant Bone Marrow Allogeneic (HCC) (Primary Dx) 06/30/2025 Orders Only [facility] Transplantation and Clinical Regeneration in [place], [place] [address] [place] [address] Jessica Rousseau M.B.B.S. 06/29/2025 Clinical Communication [facility], Ninth Floor [address] [place] [address] Antonina Paul R.N. 06/29/2025 Clinical Communication Division of Hematology in [place], [place] [address] [place] [phone] Jessica Rousseau M.B.B.S. 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 Abdominal Pain (Primary Dx); Transplant Stem Cell (HCC); Transplant Bone Marrow Allogeneic (HCC) 06/27/2025 Orders Only [facility], Ninth Floor [address] [place] [address] Carlee Armas APRN, C.N.P., D.N.P., M.S.N. 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 06/26/2025 10:25 AM CDT Ancillary Procedure Department of Gastroenterology 06/26/2025 10:20 AM CDT Ancillary Procedure Department of Gastroenterology 06/24/2025 2:59 PM CDT - 06/27/2025 12:20 PM CDT Hospital Encounter [facility], Ninth Floor [address] [place] [address] Dani Diaz M.D. 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 Vomiting; vomiting and abdominal pain 06/23/2025 10:00 AM CDT Office Visit [facility] Transplantation and Clinical Regeneration in [place], [place] [address] [place] [address] Jessica Rousseau M.B.B.S. 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 Nelli Parker, Pharm.D., R.Ph. Transplant Stem Cell (HCC) (Primary Dx) Discharge Disposition: Home or Self Care 06/23/2025 Clinical Communication [facility] Transplantation and Clinical Regeneration in [place], [place] [address] [place] [address] Jessica Rousseau M.B.B.S. 06/23/2025 Orders Only [facility] Renzo Andres M.D. 06/22/2025 6:56 PM CDT - 06/22/2025 11:59 PM CDT Hospital Encounter [facility], Ninth Floor [address] [place] [phone] Gabrielle Carlos, P.A.-Satnam. 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 Transplant Stem Cell (HCC) (Primary Dx) 06/22/2025 Clinical Communication [facility] Transplantation and Clinical Regeneration in [place], [place] [address] [place] [phone] Jessica Rousseau M.B.B.S. Phone Contact (Nausea and abdominal pain) 06/22/2025 Results Follow-Up [facility] Transplantation and Clinical Regeneration in [place], [place] [address] [place] [phone] Jessica Rousseau M.B.B.S. BCR/ABL1, p210, mRNA Detection, Reverse Mold Yard Crane Operator-PCR (RT-PCR), Quantitative, Monitoring Chronic Myeloid Leukemia (CML) 06/18/2025 Clinical Communication [facility] Transplantation and Clinical Regeneration in [place], [place] [address] [place] [phone] Osiris Bass R.N., BMT-CN Phone Contact 06/17/2025 Clinical Communication [facility] Transplantation and Clinical Regeneration in [place], [place] [address] [place] [phone] Jeanna Victor Symptom Assessment 06/15/2025 2:00 PM CDT Office Visit [facility] Transplantation and Clinical Regeneration in [place], [place] [address] [place] [phone] Jessica Rousseau M.B.B.S. Analia Carter, KARON, C.N.P. 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 06/15/2025 9:13 AM CDT - 06/15/2025 11:59 PM CDT Hospital Encounter [facility] in [place], [place] [address] [place] [phone] Jessica Rousseau M.B.B.S. 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 in [place], [place] [address] [place] [phone] Cecile Hernandez RHelio. Chest Pain 06/13/2025 Orders Only [facility], Ninth Floor [address] [place] [address] Analia Carter APRN, C.N.P. 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 Kumar, Shaji, M.D. Discharge Disposition: Home or Self Care 06/12/[address] [facility] in [place], [place] [address] [place] [phone] [facility] BMT-CN Nurse Assessment; Abdominal Pain 06/10/2025 1:20 PM CDT Nurse Only Section of Infectious Diseases in [place], [place] [address] [place] [phone] Jessica Rousseau M.B.B.S. KlingeCarolyn martinez R.N. Immunizations 06/10/2025 12:45 PM CDT [facility] in [place], [place] [address] [place] [address] Ta Medrano 06/08/2025 1:15 PM CDT Internal E-Consult Section of Infectious Diseases in [place], [place] [address] [place] [address] Arlen James APRN, C.N.PKatalina, Vanessa Freire P.A.-C. 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 06/08/2025 Clinical Communication [facility] Transplantation [facility] Clinical Regeneration in [place], [place] [address] [place] [address] Jessica Rousseau M.B.B.S. Lab Monitoring 06/08/[address] [facility] in [place], [place] [address] [place] [address] Jessica Rousseau M.B.B.S. 06/07/2025 11:45 AM CDT - 06/07/2025 11:59 PM CDT Hospital Encounter [facility], Ninth Floor [address] [place] [address] Analia Carter APRN, C.N.P. Transplant Bone Marrow Allogeneic (HCC) (Primary Dx); Transplant Stem Cell (HCC); Pain Pleuritic Chest; Other Chest Pain; Leukemia Myeloid Chronic BCR/ABL Positive Remission (HCC) Discharge Disposition: Home or Self Care 06/06/2025 Orders Only [facility], Ninth Floor [address] [place] [address] Romina Garsia RFritz Transplant Stem Cell (HCC) (Primary Dx) 06/06/2025 Orders Only [facility], [facility], [facility], Ninth Floor [address] [place] [address] Analia Carter APRN, C.N.P. Transplant Stem Cell (HCC) (Primary Dx); Pain Pleuritic Chest 06/05/2025 8:36 AM CDT - 06/05/2025 11:59 PM CDT Hospital Encounter Department of Radiology in [address] [phone] Jessica Avila APRN, C.N.P., M.S.N. Transplant Stem Cell (HCC) Discharge Disposition: Home or Self Care 06/05/[address] [facility] in [place], [place] [address] [place] [phone] Jessica Avila APRN C.N.P., M.S.N. 06/05/2025 Clinical Communication [facility] Transplantation and Clinical Regeneration in [place], [place] [address] [place] [phone] Jessica Rousseau M.B.B.S. Phone Contact (CT Results) 06/03/2025 10:00 AM CDT Office Visit [facility] Transplantation and Clinical Regeneration in [place], [place] [address] [place] [phone] Tessa Jesus APRN, C.N.P., D.N.P. Jessica Avila APRN C.N.P., M.S.N. Transplant Stem Cell (HCC) (Primary Dx) 06/02/[address] [facility] in [place], [place] [address] [place] [phone] Transplant, Coordinator, R.N. Nurse Assessment 06/01/2025 1:39 PM CDT Anesthesia Event Division of Gastroenterology in [place], [place] [address] [place] [phone] Isaias Tolbert APRN, CRNA Pompeian, Rochelle J, M.D. 06/01/2025 1:15 PM CDT Ancillary Procedure Department of Gastroenterology 06/01/2025 12:04 PM CDT - 06/01/2025 11:59 PM CDT Hospital Encounter Division of Gastroenterology in [place], [place] [address] [place] [address] Lito Pollock P.A.-C. Ashkar, Motaz H, M.B.BLandon, M.S. 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 Discharge Disposition: Home or Self Care 05/28/2025 Orders Only [facility], Ninth Floor [address] [place] [address] Giselle Jean, RFritz Transplant Stem Cell (HCC) (Primary Dx) 05/27/2025 Orders Only Department of Palliative Care in [place], [place] [address] [place] [phone] Felicia Watt, Alva BRANTLEY, M.S.N. 05/26/2025 Clinical Communication [facility] Transplantation and Clinical Regeneration in [place], [place] [address] [place] [phone] Jessica Rousseau M.B.B.S. 05/26/2025 Clinical Communication Section of Infectious Diseases in [address] [phone] Jennifer Marx R.N. Prescreen Immunization Review 05/25/2025 2:00 PM CDT Office Visit Department of Palliative Care in [place], [place] [address] [place] [phone] Felicia Watt APRN, C.N.P., M.S.N. Pain Leg Bilateral (Primary Dx); Nausea; Fatigue; Insomnia; Anxiety; Palliative Care 05/25/2025 1:45 PM CDT [facility] in [place], [place] [address] [place] [phone] Ta Medrano 05/20/2025 9:30 AM CDT Office Visit [facility] Transplantation and Clinical Regeneration in [address] [phone] Lito Pollock P.A.-C. Olney, Tammy L, Katie BRANTLEY., D.N.P. Lida Olivas, R.N. 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); Transplant Stem Cell (HCC) 05/20/2025 9:00 AM CDT Office Visit [facility] Transplantation and Clinical Regeneration in [address] [phone] Lito Pollock P.A.-C. Braun, Jade L, Pharm.D., R.Ph. Transplant Bone Marrow Allogeneic (HCC) (Primary Dx) Discharge Disposition: Home or Self Care 05/20/2025 Clinical Communication [facility] Transplantation and Clinical Regeneration in [address] [phone] Jessica Rousseau M.B.B.S. /7 appts 05/17/2025 1:59 PM CDT - 05/17/2025 5:26 PM CDT Hospital Encounter [facility], Ninth Floor [address] [place] [address] Renita Potts, KARON C.N.P., D.N.P. 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 in [place], [place] [address] [place] [address] Ladonna Constantino R.N. 05/17/2025 Orders Only [facility], Ninth Floor [address] [place] [address] Ladonna Constantino R.N. 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) 05/11/2025 Clinical Communication [facility] Transplantation and Clinical Regeneration in [place], [place] [address] [place] [address] Arely Taylor R.N. Lab Monitoring (05/08/2025) 05/08/2025 10:30 AM CDT - 05/08/2025 11:59 PM CDT Hospital Encounter Department of Laboratory Medicine in [place], [place] [address] [place] [address] Lito Pollock P.A.-C. 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 Nurse Assessment (Nausea/Vomiting ) 04/29/2025 10:00 AM CDT [facility] in [place], [place] [address] [place] [address] Becky Hernandez APRN, C.N.P., Heaven.N.P. Lito Pollock P.A.-C. 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 Nelli Parker, Pharm.D., R.Ph. Leukemia Myeloid Chronic BCR/ABL Positive Remission (HCC); Transplant Bone Marrow Allogeneic (HCC) Discharge Disposition: Home or Self Care 04/29/2025 8:30 AM CDT Lab Department of Laboratory Medicine and Pathology, [facility] in [place], [place] [address] [place] [phone] Jessica Rousseau M.B.B.S. 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 Scheduling 04/27/2025 Specialty Pharmacy [facility] [address] [place] [phone] Isabel Bautista, PharmElaine., R.Ph. 04/22/2025 10:00 AM CDT Telemedicine [facility] in [place], [place] [address] [place] [phone] Becky Hernandez APRN, Satnam.N.P., D.N.P. Analia Carter APRN, C.N.P. Pain Neuropathic (Primary Dx); Leukemia Myeloid Chronic BCR/ABL Positive Remission (HCC); Transplant Stem Cell (HCC) 04/21/2025 2:00 PM CDT Comprehensive Visit Department of Palliative Care in [place], [place] [address] [place] [address] Martine Pardo B.M.BKatalinaS., B.M., B.Evangelina Vu, R.Lolly Pain Neuropathic (Primary Dx); Transplant Stem Cell (HCC); Depressive Disorder 04/20/2025 8:00 AM CDT - 04/20/2025 11:59 PM CDT Hospital Encounter Department of Laboratory Medicine in [address] [address] Becky Hernandez APRN, C.N.P., D.N.P. 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 04/18/2025 Orders Only [facility] in [place], [place] [address] [place] [phone] Becky Hernandez APRN C.N.P., D.N.P. Transplant Stem Cell (HCC) (Primary Dx) 04/18/2025 Clinical Communication [facility], Ninth Floor [address] [place] [phone] Jeanne Khan R.N. After Visit Question (Chronic fatigue/Leg pain) 04/18/2025 Orders Only [facility], Ninth Floor [address] [place] [phone] Becky Hernandez APRN, C.N.P., D.N.P. from Last 3 Months Immunizations Immunization Administration [...] Brother 1 Anxiety disorder Brother 2 shena vidaleser Depression Brother 2 shena vidaleser Psychiatric Maternal [...] things needed for daily living? No 07/02/2025 [facility] Utilities Answer Date Recorded In the past 12 months has th [employer] electric, gas, oil, or water company threatened to shut off services in your home? No 07/02/2025 Depression Answer Date Recor ded PHQ-9 Total Score (max 27) 12 07/08 Housing Stability Answer Date Recorded What is your living situation today? I have a [facility] place to live 07/02/2025 Education Answer Date Recorded What is the highest level of school you have completed or the highest degree you have received? Some college, no degree 04/24/2019 Comments No Sex and Gender Information Value Date Recorded Sex Assigned at Female 12/26/2018 8:37 PM CUSTOMER SUPPORT ANALYST Legal Sex Female 2:43 PM CUSTOMER SUPPORT ANALYST Gender Identity Female 12/26/2018 8:37 PM CUSTOMER SUPPORT ANALYST Sexual Orientation Choose not to disclose 2020 3:46 PM CDT Last Filed Vital Signs Vital Sign Reading Time Taken Comments Blood Pressure 166/105 07/16/2025 9:44 AM CDT Pulse 98 07/16/2025 9:44 AM CDT Temperature 36.7 C (98.1 F) 07/16/2025 7:59 AM CDT Respiratory Rate 18 07/11/2025 10:07 AM CDT Oxygen Saturation 97% 07/11/2025 10:10 AM CDT Inhaled Oxygen Concentration - - Weight 107 kg (235 lb 7.2 oz) 07/16/2025 9:44 AM CDT Height 174 cm (5' 8.5) 07/16/2025 9:44 AM CDT Body Mass Index 35.28 07/16/2025 9:44 AM CDT Plan of Treatment Upcoming Encounters Date Type Department Care Team (Late st Contact Info) Description 07/21/2025 11:00 AM CDT Telemedicine Department of Palliative Care in [place], [place] [address] [place] [address] Meghan Osorio M.D. 200 [place] [address] 07/22/2025 8:40 AM CDT Lab Department of Laboratory Medicine and Pathology, [facility], in [place], [place] [address] [place] [address] Becky Hernandez APRN, C.N.P., D.N.P. [address] [place] [phone] 07/22/2025 9:30 AM CDT Office Visit [facility] in [place], [place] [address] [place] [address] Becky Hernandez APRN, C.N.P., D.N.P. [address] [place] [phone] 07/30/2025 2:00 PM CDT Appointment Division of Gastroenterology in [place], [place] [address] [place] [address] Derrick Cruz Jr., M.D., M.S. [address] [place] [phone] 08/11/2025 9:00 AM CDT Nurse Only Section of Infectious Diseases in [place], [place] [address] [place] [address] Jessica Rousseau M.B.B.S. [address] [place] [phone] 08/11/2025 1:00 PM CDT Clinical Support Department of Palliative Care in [place], [place] [address] [place] [address] Uma Aly APRN, C.N.P., M.S.N. [address] [place] [phone] 08/13/2025 10:00 AM CDT Lab Department of Laboratory Medicine and Pathology, [facility], in [place], [place] [address] [place] [address] Jessica Rousseau M.B.B.S. [address] [place] [phone] 08/13/2025 10:30 AM CDT [facility] in [place], [place] [address] [place] [address] Jessica Rousseau M.B.B.S. [address] [place] [phone] 08/13/2025 11:00 AM CDT Nurse Only [facility] in [place], [place] [address] [place] [address] Jessica Rousseau M.B.B.S. [address] [place] [phone] 08/13/2025 11:30 AM CDT [facility] in [place], [place] [address] [place] [address] Jessica Rousseau M.B.B.S. [address] [place] [phone] 09/25/2025 10:30 AM CUSTOMER SUPPORT ANALYST Telemedicine Pedro [facility]yla [facility] in [place], [place] [address] [place] [address] Jessica Rousseau M.B.B.S. [address] [place] [phone] Health Maintenance Due Date Last Done Comments Dental Prophylaxis 1989 HIV Screening 1989 Visit: Medicare Annual Wellness 1989 Dilated Eye Exam 11/05/2009 05/06/2009 COVID-19 Vaccine (4 - 4-2 5 season) 2024 10/31/2021, 03/30/2021, 03/02/2021 Cervical/Vaginal Cancer Screening 10/15/2024 10/15/2019, 10/15/2019, 11/25/2013 Controlled Substance Agreement 04/05/2025 Controlled Substance Monitor ing (UDS) 04/05/2025 PEG assessment for Opioid therapy 04/05/2025 Vaccine Post BMT: HPV (Garda jaylen) 3 Doses (#1) 06/09/2025 Vaccine Post BMT: CpG (Hepli fozia) 2 Doses (#2) 07/07/2025 06/10/2025 Influenza Vaccine (#1) 2025 9, 09/02/2012, 09/02/2012, Additional history exists Vaccine Post BMT: DTaP 3 dos es [...] Zoster (Shingrix) 2 Doses (#2) 08/04/2025 06/10/2025 Depression Monitoring (PHQ-9) 11/07/2025 07/08/2025 Vaccine Post BMT: Hepatitis A 2 Doses (#2) 12/09/2025 06/10/2025 Urinalysis 01/02/2026 07/02/2025, 0211/2024, 11/04/2024, Additional history exists Generalized Anxiety (HERMINIO-7) 03/23/2026 03/23/2025 Spirometry with DLCO or PFT 03/23/2026 03/23/2025, 1 01/06/2024 Lipid (Cholesterol) Screening 03/24/2026, 06/23/2024, 09/08/2022 Vitamin D Testing 07/06/2026 07/06/2025, , 11/04/2024, Additional history exists Controlled Substance Monitor ing (PHQ-9) 07/08/2026 07/08/2025 Creatinine Level (Kidney Fun ction Test) 07/16/2026 07/16/2025, 07/06/2025, 07/05/2025, Additional history exists Fasting Glucose for Diabetes Screening 07/16/2026 07/16/2025, 07/06/2025, 07/05/2025, Additional history exists Potassium Level 07/16/2026 07/16/2025, 06/19, 07/05/2025, Additional history exists Sodium Level 07/16/2026 07/16/2025, 06/19, 07/05/2025, Additional history exists Hepatitis B Screening Discontinued 12/12/2018 Hepatitis C Screening Completed 12/12/2018 Depression Monitoring (PHQ-9 for quality tracking) Completed 03/23/2025 Opioid Risk Tool (ORT) Completed 04/21/2025 Glucose Test for Med Monitoring Discontinued 07/16/2025, 07/06/2025, 07/05/2025, Additional history exists Goals Goal Patient Goal Type Associated Problems Recent Progress Patient-Stated? Author [facility] Care Plan for Colonoscopy Routine Prep Care Plan [facility] Care Plan for Colonoscopy Routine Prep No Derrick Cruz Jr., M.D., M.S. Autogenerated Goal Care Plan Autogenerated Problem No Sophie Galarza Procedures Procedure Name Priority Date/Time Associated Diagnosis Comments LACTATE DEHYDROGENASE (LD), S Routine 07/16/2025 7:56 AM CDT Leukemia Myeloid Chronic BCR/ABL Positive Remission (HCC) Transplant Bone Marrow Allogeneic (HCC) Nausea Corticosteroid Treatment Mcc Systemic GLUCOSE, FASTING, S/P Routine 07/16/2025 7:56 AM CDT Leukemia Myeloid Chronic BCR/ABL Positive Remission (HCC) Transplant Bone Marrow Allogeneic (HCC) Nausea Corticosteroid Treatment Public Address System Mechanic Systemic CBC NO CALL BACK, REFLEX T/S Routine 07/16/2025 7:56 AM CDT Leukemia Myeloid Chronic BCR/ABL Positive Remission (HCC) Transplant Bone Marrow Allogeneic (HCC) Nausea Corticosteroid Treatment Public Address System Mechanic Systemic BILIRUBIN, TOT, S/P Routine 07/16/2025 7 :56 AM CDT Leukemia Myeloid Chronic BCR/ABL Positive Remission (HCC) Transplant Bone Marrow Allogeneic (HCC) Nausea Corticosteroid Treatment Public Address System Mechanic Systemic ASPARTATE AMINOTRANSFERASE (AST), S/P Routine 07/16/2025 7:56 AM CDT Leukemia Myeloid Chronic BCR/ABL Positive Remission (HCC) Transplant Bone Marrow Allogeneic (HCC) Nausea Corticosteroid Treatment Mcc Systemic EBV DNA DETECT/QUANT, P Routine 07/16/2025 7:56 AM CDT Leukemia Myeloid Chronic BCR/ABL Positive Remission (HCC) Transplant Bone Marrow Allogeneic (HCC) Nausea Corticosteroid Treatment Mcc Systemic CMV DNA DETECT/QUANT, P Routine 07/16/2025 7:56 AM CDT Leukemia Myeloid Chronic BCR/ABL Positive Remission (HCC) Transplant Bone Marrow Allogeneic (HCC) Nausea Corticosteroid Treatment Mcc Systemic SODIUM, S/P Routine 07/16/2025 7:55 AM CDT Leukemia Myeloid Chronic BCR/ABL Positive Remission (HCC) Transplant Bone Marrow Allogeneic (HCC) Nausea Corticosteroid Treatment Public Address System Mechanic Systemic POTASSIUM, S/P Routine 07/16/2025 7:55 AM CDT Leukemia Myeloid Chronic BCR/ABL Positive Remission (HCC) Transplant Bone Marrow Allogeneic (HCC) Nausea Corticosteroid Treatment Public Address System Mechanic Systemic MAGNESIUM, S Routine 07/16/2025 7:55 AM CDT Leukemia Myeloid Chronic BCR/ABL Positive Remission (HCC) Transplant Bone Marrow Allogeneic (HCC) Nausea Corticosteroid Treatment Mcc Systemic CREATININE WITH EGFR, S/P Routine 07/16/2025 7:55 AM CDT Leukemia Myeloid Chronic BCR/ABL Positive Remission (HCC) Transplant Bone Marrow Allogeneic (HCC) Nausea Corticosteroid Treatment Mcc Systemic CALCIUM, TOT, S/P Routine 07/16/2025 7:5 5 AM CDT Leukemia Myeloid Chronic BCR/ABL Positive Remission (HCC) Transplant Bone Marrow Allogeneic (HCC) Nausea Corticosteroid Treatment Mcc Systemic BUN (BLOOD UREA NITROGEN), S/P Routine 07/16/2025 7:55 AM CDT Leukemia Myeloid Chronic BCR/ABL Positive Remission (HCC) Transplant Bone Marrow Allogeneic (HCC) Nausea Corticosteroid Treatment Mcc Systemic ALANINE AMINOTRANSFERASE (ALT), S/P Routine 07/16/2025 7:55 AM CDT Leukemia Myeloid Chronic BCR/ABL Positive Remission (HCC) Transplant Bone Marrow Allogeneic (HCC) Nausea Corticosteroid Treatment Mcc Systemic ALKALINE PHOSPHATASE, S/P Routine 07/16/2025 7:55 AM CDT Leukemia Myeloid Chronic BCR/ABL Positive Remission (HCC) Transplant Bone Marrow Allogeneic (HCC) Nausea Corticosteroid Treatment Mcc Systemic ALBUMIN, S/P Routine 07/16/2025 7:55 AM CDT Leukemia Myeloid Chronic BCR/ABL Positive Remission (HCC) Transplant Bone Marrow Allogeneic (HCC) Nausea Corticosteroid Treatment Public Address System Mechanic Systemic TROPONIN T, 2H/6H REFLEX, 5TH GEN, P Timed 07/06/2025 10:24 AM CDT TROPONIN T, BASELINE, 5TH GEN, P STAT 07/06/2025 8:01 AM CDT ECG STAT 07/06/2025 7:57 AM CDT CBC NO CALL BACK, REFLEX T/S Routine 07/06/2025 5:47 AM CDT ANTIBODY SCREEN, B Routine 07/06/2025 5: 47 AM CDT PHOSPHORUS (INORGANIC), S Routine 07/06/2025 5:47 AM CDT MAGNESIUM, S Routine 07/06/2025 5:47 AM CDT COMPREHENSIVE METABOLIC PANEL, S/P Routine 07/06/2025 5:47 AM CDT CMV DNA DETECT/QUANT, P Routine 07/06/2025 5:47 AM CDT EBV DNA DETECT/QUANT, P Routine 07/06/2025 5:47 AM CDT 25-HYDROXYVITAMIN D2 AND D3, S Routine 07/06/2025 5:46 AM CDT PORPHYRINS, F Routine 07/05/2025 8:27 AM CDT BASIC METABOLIC PANEL, S/P Routine 07/05/2025 12:52 AM CDT CBC NO CALL BACK, REFLEX T/S Routine 07/05/2025 12:52 AM CDT BASIC METABOLIC PANEL, S/P Routine 07/04/2025 5:31 AM CDT CBC NO CALL BACK, REFLEX T/S Routine 07/04/2025 5:31 AM CDT ANCA VASCULITIS PANEL, S Timed 07/03/2025 10:26 AM CDT C-REACTIVE PROTEIN (CRP), S/P Timed 07/03/2025 10:25 AM CDT C4 COMPL, FUNCTIONAL, S Timed 07/03/2025 10:25 AM CDT C3 COMPL, FUNCTIONAL, S Timed 07/03/2025 10:25 AM CDT ALA DEHYDRATASE, WB Timed 07/03/2025 10:25 AM CDT UROPORPHYRINOGEN DECARBOXYLASE, WB Timed 07/03/2025 10:25 AM CDT C1 ESTERASE INHIBITOR, FUNCTIONAL ASSAY, S Timed 07/03/2025 10:24 AM CDT LACTATE, B/P Timed 07/03/2025 1:02 AM CDT LACTATE, B/P Timed 07/03/2025 1:02 AM CDT BACTERIA / CELSO CULTURE, BLOOD Routine 07/02/2025 9:48 PM CDT CBC WITH DIFFERENTIAL, B STAT 07/02/2025 9:40 PM CDT BACTERIA / CELSO CULTURE, BLOOD Routine 07/02/2025 9:40 PM CDT GAMMA-GLUTAMYLTRANSFER ASE (GGT), S/P STAT 07/02/2025 9:39 PM CDT LIPASE, S/P STAT 07/02/2025 9:39 PM CDT AMYLASE, TOT, S STAT 07/02/2025 9:39 PM CDT MAGNESIUM, S STAT 07/02/2025 9:39 PM CDT LACTATE FOR SEPSIS WITH REFLEX STAT 07/02/2025 9:39 PM CDT COMPREHENSIVE METABOLIC PANEL, S/P STAT 07/02/2025 9:39 PM CDT CMV DNA DETECT/QUANT, P STAT 07/02/2025 9:39 PM CDT DIPSTICK, U Routine 07/02/2025 9:29 PM CDT HC OSMOLALITY ASSAY URINE Routine 07/02/2025 9:29 PM CDT PH, RANDOM, U Routine 07/02/2025 9:29 PM CDT MICROSCOPIC MANUAL Routine 07/02/2025 9: 29 PM CDT URINALYSIS WITH MICROSCOPIC Routine 07/02/2025 9:29 PM CDT BACTERIAL CULTURE, AEROBIC + SUSC, URINE Routine 07/02/2025 9:29 PM CDT ECG Routine 07/02/2025 9:[address] ABDOMEN PELVIS ENTEROGRAPHY WITH IV CONTRAST RAD - Routine (most inpatients and all outpatients) 06/30/2025 3:37 PM CDT Transplant Stem Cell (HCC) Transplant Bone Marrow Allogeneic (HCC) AMYLASE, TOT, S Routine 06/30/2025 1:12 PM CDT Transplant Bone Marrow Allogeneic (HCC) LIPASE, S/P Routine 06/30/2025 1:12 PM CDT Transplant Bone Marrow Allogeneic (HCC) LACTATE, B/P Routine 06/30/2025 1:12 PM CDT Transplant Bone Marrow Allogeneic (HCC) LACTATE DEHYDROGENASE (LD), S Routine 06/30/2025 10:41 AM CDT 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) Anxiety Generalized Disorder Fatigue Chronic SODIUM, S/P Routine 06/30/2025 10:41 AM CDT 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) Anxiety Generalized Disorder Fatigue Chronic POTASSIUM, S/P Routine 06/30/2025 10:41 AM CDT 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) Anxiety Generalized Disorder Fatigue Chronic MAGNESIUM, S Routine 06/30/2025 10:41 AM CDT 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) Anxiety Generalized Disorder Fatigue Chronic GLUCOSE, FASTING, S/P Routine 06/30/2025 10:41 AM CDT 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) Anxiety Generalized Disorder Fatigue Chronic CREATININE WITH EGFR, S/P Routine 06/30/2025 10:41 AM CDT 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) Anxiety Generalized Disorder Fatigue Chronic CBC NO CALL BACK, REFLEX T/S Routine 06/30/2025 10:41 AM CDT 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) Anxiety Generalized Disorder Fatigue Chronic CALCIUM, TOT, S/P Routine 06/30/2025 10:41 AM CDT 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) Anxiety Generalized Disorder Fatigue Chronic BUN (BLOOD UREA NITROGEN), S/P Routine 06/30/2025 10:41 AM CDT 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) Anxiety Generalized Disorder Fatigue Chronic ALANINE AMINOTRANSFERASE (ALT), S/P Routine 06/30/2025 10:41 AM CDT 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) Anxiety Generalized Disorder Fatigue Chronic ALKALINE PHOSPHATASE, S/P Routine 06/30/2025 10:41 AM CDT 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) Anxiety Generalized Disorder Fatigue Chronic ALBUMIN, S/P Routine 06/30/2025 10:41 AM CDT 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) Anxiety Generalized Disorder Fatigue Chronic BILIRUBIN, TOT, S/P Routine 06/30/2025 10:40 AM CDT 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) Anxiety Generalized Disorder Fatigue Chronic ASPARTATE AMINOTRANSFERASE (AST), S/P Routine 06/30/2025 10:40 AM CDT 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) Anxiety Generalized Disorder Fatigue Chronic CBC NO CALL BACK, REFLEX T/S Routine 06/27/2025 3:50 AM CDT PHOSPHORUS (INORGANIC), S Routine 06/27/2025 3:50 AM CDT MAGNESIUM, S Routine 06/27/2025 3:50 AM CDT COMPREHENSIVE METABOLIC PANEL, S/P Routine 06/27/2025 3:50 AM CDT SURGICAL PATHOLOGY Routine 06/26/2025 11:25 AM CDT GASTROENTEROLOGY IMAGE EXAM Routine 06/26/2025 [...] CELL SORT Routine 06/15/2025 9:50 AM CDT NM DX BONE MARROW BX & ASPIR Routine 06/15/2025 9:45 AM CDT 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) Abnormal Finding Of Blood Chemistry Unspecified Follow Up Examination Following Bone Marrow Transplant Corticosteroid Treatment Public Address System Mechanic Systemic HEMATOPATHOLOGY Routine 06/15/2025 12:00 AM CDT [...] Examination Following Bone Marrow Transplant Corticosteroid Treatment Public Address System Mechanic Systemic CD4 T-CELL COUNT, B Routine 04/29/2025 [...] Examination Following Bone Marrow Transplant Corticosteroid Treatment Public Address System Mechanic Systemic CMV DNA DETECT/QUANT, P Routine 04/29/2025 9:42 AM CDT Transplant Stem Cell ([facility]) LACTATE DEHYDROGENASE (LD), S Routine 04/29/2025 9:41 AM CDT Transplant Stem Cell ([facility]) SODIUM, S/P Routine 04/29/2025 9:41 AM CDT Transplant Stem Cell ([facility]) POTASSIUM, S/P Routine 04/29/2025 9:41 AM CDT Transplant Stem Cell ([facility]) MAGNESIUM, S Routine 04/29/2025 9:41 AM CDT Transplant Stem Cell ([facility]) GLUCOSE, FASTING, S/P Routine 04/29/2025 9:41 AM CDT Transplant Stem Cell ([facility]) Hyperglycemia CREATININE WITH EGFR, S/P Routine 04/29/2025 9:41 AM CDT Transplant Stem Cell ([facility]) CBC NO CALL BACK, REFLEX T/S Routine 04/29/2025 9:41 AM CDT Transplant Stem Cell ([facility]) CALCIUM, TOT, S/P Routine 04/29/2025 9:4 1 AM CDT Transplant Stem Cell ([facility]) BUN (BLOOD UREA NITROGEN), S/P Routine 04/29/2025 9:41 AM CDT Transplant Stem Cell ([facility]) BILIRUBIN, TOT, S/P Routine 04/29/2025 9 :41 AM CDT Transplant Stem Cell ([facility]) ASPARTATE AMINOTRANSFERASE (AST), S/P Routine 04/29/2025 9:41 AM CDT Transplant Stem Cell ([facility]) ALANINE AMINOTRANSFERASE (ALT), S/P Routine 04/29/2025 9:41 [...] Remission (HCC) Transplant Bone Marrow Allogeneic (HCC) LIPID PANEL, S Routine 03/24/2025 9:29 AM CDT 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) Abnormal Finding Of Blood Chemistry Unspecified Follow Up Examination Following Bone Marrow Transplant PULMONARY FUNCTION TESTS Routine 03/23/2025 9:48 AM CDT 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 [facility] EBV DNA Detect/Quant, P Undetected Undetected IU/mL 07/17/2025 1:06 PM CDT [facility] Comment: Result in log IU/mL is Undetected. ----ADDITIONAL INFORMATION---- The quantification range of this assay is 35 to 100,000,000 IU/mL (1.54 log to 8.00 log IU/mL). Testing was performed using the lucrecia EBV test ([employer] Blood (Blood, Venous) 07/16/2025 7:56 AM CDT 07/16/2025 10:03 AM CDT us Jessica Barnes LAB MICROBIOLOGY - BLOOD O RDERABLES Final Result [facility] [place] [address] [place] [address] [facility] [address] [place] [address] [place] [place] [address] * CBC no call back, reflex T/S HGB <8 (07/16/2025 7:56 AM CDT) Only the most recent of14 resultswithin the time period is included. [facility] Hemoglobin 12.3 11.6 - 15.0 g/dL 07/16/2025 [...] 7:56 AM CDT 07/16/2025 8:11 AM CDT us Jessica Barnes LAB BLOOD NON ADD-ON Final Result [facility] [place] [address] [place] [address], [facility] DTL [facility] [address] [place] [address] [facility] [address] [place] [address] * CMV DNA Detect / Quant, Plasma (07/16/2025 7:56 AM CDT) Only the most recent of7 resultswithin the time period is included. [facility] CMV DNA Detect/Quant, P Undetected Undetected IU/mL 07/17/2025 12:41 PM CDT [facility] Comment: Result in log IU/mL is Undetected. ----ADDITIONAL INFORMATION---- The quantification range of this assay is 35 to 10,000,000 IU/mL (1.54 log to 7.00 log IU/mL). Testing was performed using the lucrecia CMV test ([employer] Blood (Blood, Venous) 07/16/2025 7:56 AM CDT 07/16/2025 11:16 AM CDT Jessica DowlingB.S. LAB MICROBIOLOGY - BLOOD O RDERABLES Final Result [facility] [address] [place] [address] [facility] [address] [place] [address] [place] [address] * AST (Aspartate Aminotransferase) (07/16/2025 7:56 AM CDT) Only the most recent of6 resultswithin the time period is included. [facility] Aspartate Aminotransferase (AST), P 17 8 - 43 U/L 07/16/2025 10:59 AM CDT DTL Blood (Blood, Venous) 07/16/2025 7:56 AM CDT 07/16/2025 8:12 AM CDT us Jessica DowlingB.S. LAB BLOOD ADD-ON Final Res ult Performing Organization Address City/[facility]/ZIP Co de Phone Number [facility] [place] [address] [place] [address], [facility] [address] [place] [address] * LD (Lactate Dehydrogenase) (07/16/2025 7:56 AM CDT) Only the most recent of7 resultswithin the time period is included. [facility] LD 197 122 - 222 U/L 07/16/2025 9:12 AM CDT DTL Blood (Blood, Venous) 07/16/2025 7:56 AM CDT 07/16/2025 8:51 AM CDT Jessica DowlingB.S. LAB BLOOD NON ADD-ON Final Result Performing Organization Address City/[facility]/ZIP Co de Phone Number [facility] [place] [address] [place] [address] * (ABNORMAL) Glucose, Fasting (07/16/2025 7:56 AM CDT) Only the most recent of6 resultswithin the time period is included. Pathologist [facility] Glucose, P 130(H) 70 - 100 mg/dL 07/16/2025 8:33 AM CDT DTL Last Intake 2 hr 07/16/2025 8:08 AM CDT DTL Blood (Blood, Venous) 07/16/2025 7:56 AM CDT 07/16/2025 8:08 AM CDT Jessica Cook.B.S. LAB BLOOD NON ADD-ON Final Result Performing Organization Address City/[facility]/[place] [address] * Bilirubin, Total (07/16/2025 7:56 AM CDT) Only the most recent of6 resultswithin the time period is included. [facility] Bilirubin, Total, P <0.2 0.0 - 1.2 mg/dL 07/16/2025 10:28 AM CDT DT Blood (Blood, Venous) 07/16/2025 7:56 AM CDT 07/16/2025 8:12 AM CDT Jessica Cook.B.S. LAB BLOOD ADD-[place] [address] * BUN (Blood Urea Nitrogen) (07/16/2025 7:55 AM CDT) Only the most recent of6 resultswithin the time period is included. [facility] BUN (Blood Urea Nitrogen), S 16 6 - 21 mg/dL 07/16/2025 8:56 AM CDT DTL Blood (Blood, Venous) 07/16/2025 7:55 AM CDT 07/16/2025 8:09 AM CDT Jessica DowlingB.S. LAB BLOOD ADD-ON Final Res ult Performing Organization Address City/[facility] Co de Phone Number [facility] [place] [address] [place] [address], [facility] [address] [place] [address] * ALT (Alanine Aminotransferase) (07/16/2025 7:55 AM CDT) Only the most recent of6 resultswithin the time period is included. Alanine Aminotransferase (ALT), S 39 7 - 45 U/L 07/16/2025 8:56 AM CDT DTL Blood (Blood, Venous) 07/16/2025 7:55 AM CDT 07/16/2025 8:09 AM CDT Jessica DowlingB.S. LAB BLOOD ADD-ON Final Res ult Performing Organization Address [facility] Co de Phone Number [facility] [place] [address] [place] [address], [facility] [address] [place] [address] * Sodium (07/16/2025 7:55 AM CDT) Only the most recent of6 resultswithin the time period is included. Sodium, S 139 135 - 145 mmol/L 07/16/2025 8:56 AM CDT DTL Blood (Blood, Venous) 07/16/2025 7:55 AM CDT 07/16/2025 8:09 AM CDT Jessica DowlingB.S. LAB BLOOD ADD-ON Final Res ult Performing Organization Address City/[facility]/ZIP Co de Phone Number [facility] [place] [address] [place] [address], [facility] [address] [place] [address] * Potassium (07/16/2025 7:55 AM CDT) Only the most recent of6 resultswithin the time period is included. Pathologist [facility] Potassium, S 3.9 3.6 - 5.2 mmol/L 07/16/2025 8:56 AM CDT DT Blood (Blood, Venous) 07/16/2025 7:55 AM CDT 07/16/2025 8:09 AM CDT Jessica Bustillos.S. LAB BLOOD ADD-ON Final Res ult Performing Organization Address [facility] Co de Phone Number [facility] [place] [address] [place] [address], [facility] [address] [place] [address] * Alkaline Phosphatase (07/16/2025 7:55 AM CDT) Only the most recent of6 resultswithin the time period is included. [facility] Alkaline Phosphatase, S 103 35 - 104 U/L 07/16/2025 8:56 AM CDT DT Blood (Blood, Venous) 07/16/2025 7:55 AM CDT 07/16/2025 8:09 AM CDT Jessica DowlingB.S. LAB BLOOD ADD-ON Final Res ult Performing Organization Address City/[facility]/ZIP Co de Phone Number [facility] [place] [address] [place] [address], [facility] [address] [place] [address] * Magnesium (07/16/2025 7:55 AM CDT) Only the most recent of15 resultswithin the time period is included. [facility] Magnesium, S 2.0 1.7 - 2.3 mg/dL 07/16/2025 8:56 AM CDT DTL Blood (Blood, Venous) 07/16/2025 7:55 AM CDT 07/16/2025 8:09 AM CDT Jessica DowlingB.S. LAB BLOOD ADD-ON Final Res ult Performing Organization Address City/[facility] Co de Phone Number [facility] [place] [address] [place] [address], [facility] [address] [place] [address] * Creatinine with Estimated GFR (07/16/2025 7:55 AM CDT) Only the most recent of6 resultswithin the time period is included. Creatinine 0.86 0.59 - 1.04 mg/dL 07/16/2025 8:56 AM CDT DTL Estimated GFR (eGFR) 90 >=60 mL/min/BSA 07/16/2025 8:56 AM CDT DTL Comment: Estimated GFR calculated using the 2020 CKD_EPI creatinine equation. Blood (Blood, Venous) 07/16/2025 7:55 AM CDT 07/16/2025 8:09 AM CDT Jessica DowlingB.S. LAB BLOOD ADD-ON Final Res ult Performing Organization Address City/[facility]/ZIP Co de Phone Number [facility] [place] [address] [place] [address], [facility] [address] [place] [address] * Calcium, Total (07/16/2025 7:55 AM CDT) Only the most recent of6 resultswithin the time period is included. Calcium, Total, S 9.3 8.6 - 10.0 mg/dL 07/16/2025 8:56 AM CDT DTL Blood (Blood, Venous) 07/16/2025 7:55 AM CDT 07/16/2025 8:09 AM CDT Jessica DowlingB.S. LAB BLOOD ADD-ON Final Res ult [facility] [place] [address] [place] [address] * Albumin (07/16/2025 7:55 AM CDT) Only the most recent of6 resultswithin the time period is included. Albumin, S 4.3 3.5 - 5.0 g/dL 07/16/2025 8:56 AM CDT DTL Blood (Blood, Venous) 07/16/2025 7:55 AM CDT 07/16/2025 8:09 AM CDT Jessica DowlingB.S. LAB BLOOD ADD-ON Final Res ult Performing Organization Address City/[facility]/ZIP Co de Phone Number [facility] [place] [address] [place] [address] * Troponin T, 2 Hour with 6 [...] T ROPONIN Final Result Performing Organization Address [facility] Co de Phone Number [facility] [place] [address] [place] [address] * Troponin T, Baseline with 2 Hour/6 Hour Reflex Biomarker Panel (07/06/2025 8:01 AM CDT) Pathologist [facility] Troponin T, Baseline, 5th gen <6 <=10 ng/L 07/06/2025 9:32 AM CDT DTL Blood (Blood, Venous) 07/06/2025 8:01 AM CDT 07/06/2025 8:50 AM CDT Jessica Avila APRN, C.N.P., M.S.N. LAB BLOOD T ROPONIN Final Result Performing Organization Address [facility] de Phone Number [facility] [place] [address] [place] [address] * ECG 12 Lead (07/06/2025 7:57 AM CDT) Only the most recent of3 resultswithin the time period is included. Pathologist [facility] Ventricular Rate ECG/Min 73 BPM MUSE NM Interval 174 ms MUSE QRSD Interval 82 ms MUSE QT Interval 380 ms MUSE QTC Interval 418 ms MUSE P [place] 51 degrees MUSE R [place] 6 degrees MUSE T Wave [place] 26 degrees MUSE 07/06/2025 7:57 AM CDT [...] ORDERAB LES Final Result Performing Organization Address [facility] de Phone Number MUSE NA * Antibody Screen, RBC (with reflex Antibody ID) (07/06/2025 5:47 AM CDT) [facility] Antibody Screen Negative Negative 07/06/2025 6:58 AM CDT ETRM Blood (Blood, Venous) 07/06/2025 5:47 AM CDT 07/06/2025 6:22 AM CDT Jessica Avila APRN, C.N.P., M.S.N. LAB BLOOD B ANK TEST ORDERABLES Final Result Performing Organization Address [facility] de Phone Number [facility] [place] [address] ETRM [facility] [address] [place] [address] * Phosphorus Inorganic (07/06/2025 5:47 AM CDT) Only the most recent of4 resultswithin the time period is included. [facility] Phosphorus (Inorganic), S 4.4 2.5 - 4.5 mg/dL 07/06/2025 6:44 AM CDT DTL Blood (Blood, Venous) 07/06/2025 5:47 AM CDT 07/06/2025 6:06 AM CDT Satnam Basilio APRN.N.Jean., M.S.N. LAB BLOOD A DD-ON Final Result Performing Organization Address [facility] Co de Phone Number [facility] [place] [address] DTL [facility] [address] [place] [address] * (ABNORMAL) Comprehensive Metabolic Panel (07/06/2025 5:47 AM CDT) Only the most recent of11 resultswithin the time period is included. Potassium, S 4.1 3.6 - 5.2 mmol/L [...] A DD-ON Final Result Performing Organization Address [facility] de Phone Number [facility] [place] [address] [place] [address], [facility] DTL [facility] [address] [place] [address] * 25-Hydroxyvitamin D2 and D3 (07/06/2025 5:46 AM CDT) 25-Hydroxy D2 <4.0 ng/mL 07/07/2025 10:42 AM CDT SDSC 25-Hydroxy D3 27 ng/mL 07/07/2025 10:42 AM CDT SDSC 25-Hydroxy D Total 27 ng/mL 2024 10:42 AM CDT [facility] Comment: ----REFERENCE VALUE---- 25-HYDROXY D TOTAL (D2+D3) Optimum levels in the healthy population are 20-50. ----ADDITIONAL INFORMATION---- This test was developed and its performance characteristics determined by [facility] in a manner consistent with CLIA requirements. This test has not been cleared or approved by the U.S. Food and Drug Administration. Blood (Blood, Venous) 07/06/2025 5:46 AM CDT 07/06/2025 10:21 AM CDT Jessica Avila APRN, C.N.P., M.S.N. LAB BLOOD A DD-ON Final Result Performing Organization Address [facility] Co de Phone Number [facility] [place] [address] [place] [address] [facility] [address] [place] [address] [place] [address] * Porphyrins, Feces (07/05/2025 8:27 AM CDT) [...] developed and its performance characteristics determined by [facility] in a manner consistent with CLIA requirements. This test has not been cleared or approved by the U.S. Food and Drug Administration. Stool (Stool, 24 Hours) 07/05/2025 8:27 AM CDT 07/06/2025 4:38 PM CDT Gabrielle Carlos P.A.-C. LAB BODY FLUIDS AND STOOLS ORDERABLES Final Result [facility] [address] [place] [address], [facility] DTL [address] [facility] [address] [place] [address] * Basic Metabolic Panel (07/05/2025 12:52 AM CDT) Only the most recent of4 resultswithin the time period is included. Potassium, [...] A DD-ON Final Result Performing Organization Address City/[facility] Co de Phone Number [facility] [place] [address] [place] [address], [facility] [address] [place] [address] * ANCA (Antineutrophil Cytoplasmic Antibodies) Vasculitis Panel (07/03/2025 10:26 AM CDT) Pathologist [facility] Myeloperoxidase Ab, S <0.2 <0.4 (Negative ) U 07/03/2025 1:48 PM CDT [facility] Protein[facility] Ab (PR3), S <0.2 <0.4 (Negative ) U 07/03/2025 1:48 PM CDT [facility] Blood (Blood, Venous) 07/03/2025 10:26 AM CDT 07/03/2025 12:52 PM CDT Gabrielle Carlos P.A.-C. LAB BLOOD ADD-ON Final Res ult [facility] [address] [place] [address] [facility] [address] [place] [address] * Uroporphyrinogen Decarboxylase (UPG D), Whole Blood [...] If clinically indicated, consider urine porphyrins analysis ([facility] test PQNRU). Please contact the [employer] wig sales consultant or genetic counselor environmental air specialist ( ) if you have any questions. 07/08/2025 8:16 AM CDT DTL Comment: ----ADDITIONAL INFORMATION---- High-Performance Liquid Chromatography (HPLC)/Incubation of Lysed Erythrocytes This test was developed and its performance characteristics determined by [facility] in a manner consistent with CLIA requirements. This test has not been cleared or approved by the U.S. Food and Drug Administration. Blood (Blood, Venous) 07/03/2025 10:25 AM CDT 07/03/2025 11:09 AM CDT Gabrielle Carlos P.A.-C. LAB BLOOD ADD-ON Final Res ult [facility] [place] [address] [place], [place] [address] DT [address] [facility] [address] [place] [address] * (ABNORMAL) C4 Complement, Functional (07/03/2025 10:25 AM CDT) C4 Complement, Functional, S 61(H) 22 - 45 U/mL 07/07/2025 11:10 AM CDT [facility] Comment: ----ADDITIONAL INFORMATION---- This test was developed and its performance characteristics determined by [facility] in a manner consistent with CLIA requirements. This test has not been cleared or approved by the U.S. Food and Drug Administration. Blood (Blood, Venous) 07/03/2025 10:25 AM CDT 07/03/2025 1:14 PM CDT Gabrielle Carlos P.A.-C. LAB BLOOD NON ADD-ON Final Result Performing Organization Address [facility] Co de Phone Number [facility] [address] [place] [address] [facility] [address] [place] [address] * (ABNORMAL) C3 Complement, Functional (07/03/2025 10:25 AM CDT) C3 Complement, Functional, S 51(H) 21 - 50 U/mL 07/07/2025 11:10 AM CDT [facility] Comment: ----ADDITIONAL INFORMATION---- This test was developed and its performance characteristics determined by [facility] in a manner consistent with CLIA requirements. This test has not been cleared or approved by the U.S. Food and Drug Administration. Blood (Blood, Venous) 07/03/2025 10:25 AM CDT 07/03/2025 1:14 PM CDT Gabrielle Carlos P.A.-C. LAB BLOOD NON ADD-ON Final Result Performing Organization Address [facility] Co de Phone Number [facility] [address] [place] [address] [facility] [address] [place] [address] * Aminolevulinic Acid Dehydratase (ALAD) (07/03/2025 10:25 [...] developed and its performance characteristics determined by [facility] in a manner consistent with CLIA requirements. This test has not been cleared or approved by the U.S. Food and Drug Administration. Blood (Blood, Venous) 07/03/2025 10:25 AM CDT 07/03/2025 11:09 AM CDT Gabrielle SladeC. LAB GENETIC TESTING Final Result Performing Organization Address [facility] [place] [address] * CRP (C-Reactive Protein) (07/03/2025 10:25 AM CDT) [facility] C-Reactive Protein (CRP), S <3.0 <5.0 mg/L 07/03/2025 11:09 AM CDT DTL Blood (Blood, Venous) 07/03/2025 10:25 AM CDT 07/03/2025 10:36 AM CDT Gabrielle SladeCKatalina LAB BLOOD ADD-ON Final Res ult Performing Organization Address [facility]/[place] [address] * C1 Esterase Inhibitor, Functional Assay (07/03/2025 10:24 AM CDT) [facility] C1 Esterase Inhib, Functional, S >90 % 07/06/2025 3:05 PM CDT [facility] Comment: ----REFERENCE VALUE---- Normal: >67% Equivocal: 41-67% Abnormal: <41% Blood (Blood, Venous) 07/03/2025 10:24 AM CDT 07/03/2025 1:15 PM CDT Gabrielle Carlos P.A.-C. LAB BLOOD NON ADD-ON Final Result Performing Organization Address City/[facility] Co de Phone Number [facility] [address] [place] [address] [facility] [address] [place] [address] * Lactate (07/03/2025 1:02 AM CDT) Only the most recent of4 resultswithin the time period is included. Pathologist [facility] Lactate, P 1.2 0.5 - 2.2 mmol/L 07/03/2025 1:37 AM CDT DTL Blood (Blood, Venous) 07/03/2025 1:02 AM CDT 07/03/2025 1:10 AM CDT Carlee Armas APRN, C.N.P., D.N.P., M.S. N. LAB BLOOD NON ADD-ON Final Result Performing Organization Address [facility] Co de Phone Number [facility] [place] [address] [place] [address], [facility] [address] [place] [address] * Bacteria / Celso Culture, Blood #2 (07/02/2025 9:48 PM CDT) Only the most recent of4 resultswithin the time period is included. Pathologist [facility] Bacteria/Yulia da Culture, Blood No growth after 5 days of incubation. 07/07/2025 11:02 PM CDT DT Blood (Blood, Peripheral Draw) 07/02/2025 9:48 PM CDT 07/02/2025 10:06 PM CDT Comment:Specimen Source Site : Blood us Jamari Ochoa APRNNLuigi., D.N.P., M.S.N. LAB MICROBIOLOGY - GENERAL ORDERABLES Final Result [facility] [address] [place] [address], [facility] DTL [facility] [address] [place] [address] * CBC with Differential, Blood (07/02/2025 9:40 PM CDT) Only the most recent of7 resultswithin the time period is included. Hemoglobin 11.8 11.6 - 15.0 g/dL 07/02/2025 [...] BLOOD ADD-ON Final Result Performing Organization Address City/[facility] Co de Phone Number [facility] [place] [address] [place], [place] [address] [place] [address] 200 [place] [address] * (ABNORMAL) Lactate for Sepsis with Reflex (07/02/2025 9:39 PM CDT) Only the most recent of2 resultswithin the time period is included. Lactate, P 2.3(H) 0.5 - 2.2 mmol/L 07/02/2025 10:23 PM CDT DT Blood (Blood, Venous) 07/02/2025 9:39 PM CDT 07/02/2025 9:59 PM CDT Satnam Ochoa APRN.N.P., D.N.P., M.S. N. LAB BLOOD NON ADD-ON Final Result Performing Organization Address City/[facility] Co de Phone Number [facility] [place] [address] [place], [place] [phone] [place] [address] 200 [place] [address] * Lipase (07/02/2025 9:39 PM CDT) Only the most recent of2 resultswithin the time period is included. Lipase, S 13 13 - 60 U/L 07/02/2025 10:27 PM CDT DTL Blood (Blood, Venous) 07/02/2025 9:39 PM CDT 07/02/2025 9:59 PM CDT Satnam Ochoa APRN.N.P., Heaven.N.P., M.S. N. LAB BLOOD ADD-ON Final Result Performing Organization Address [facility] de Phone Number [facility] [place] [address] [place] [address] * (ABNORMAL) GGT (Gamma-Glutamyltransferase) (07/02/2025 9:39 PM CDT) Gamma Glutamyltransferase (GGT), S 41(H) 5 - 36 U/L 07/02/2025 10:27 PM CDT DTL Blood (Blood, Venous) 07/02/2025 9:39 PM CDT 07/02/2025 9:59 PM CDT Satnam Ochoa APRN.N.P., Heaven.N.P., M.S. N. LAB BLOOD ADD-ON Final Result Performing Organization Address [facility] [place] [address] * Amylase, Total (07/02/2025 9:39 PM CDT) Only the most recent of2 resultswithin the time period is included. Amylase, Total, S 28 28 - 100 U/L 07/02/2025 10:27 PM CDT DTL Blood (Blood, Venous) 07/02/2025 9:39 PM CDT 07/02/2025 9:59 PM CDT Satnam Ochoa APRN.N.P., D.N.P., M.S. N. LAB BLOOD ADD-ON Final Result Performing Organization Address [facility]/ZIP Co de Phone Number [facility] [place] [address] [place] [address] * Osmolality, Urine (07/02/2025 9:29 PM CDT) Osmolality, U 912 150 - 1150 mOsm/kg 07/02/2025 9:52 PM CDT DTL Urine 07/02/2025 9:29 PM CDT 07/02/2025 9:29 PM CDT Satnam Ochoa APRN.N.P., Heaven.N.P., M.S. N. LAB URINE ORDERABLES Final Result Performing Organization Address [facility] Co de Phone Number [facility] [place] [address] [place] [address] * (ABNORMAL) Dipstick, Urine (07/02/2025 9:29 PM [...] URINE ORDERABLES Final Result Performing Organization Address City/[facility]/ZIP Co de Phone Number [facility] [place] [address] [place] [place] [address] * pH, Random, Urine (07/02/2025 9:29 PM CDT) pH, Random, U 5.9 4.5 - 8.0 07/02/2025 9:52 PM CDT DTL Urine 07/02/2025 9:29 PM CDT 07/02/2025 9:29 PM CDT Satnam Ochoa APRN.N.P., Heaven.N.P., M.S. N. LAB URINE ORDERABLES Final Result Performing Organization Address City/[facility]/ZIP Co de Phone Number [facility] [place] [address] [place], [place] [address] [place] [address] 200 [place] [address] * Microscopic Manual (07/02/2025 9:29 PM CDT) [...] URINE ORDERABLES Final Result Performing Organization Address City/[facility]/ZIP Co de Phone Number [facility] [place] [address] [place], [place] [address] [place] [address] 200 [place] [address] * Bacterial Culture, Aerobic + Susceptibility, Urine (07/02/2025 9:29 PM CDT) Urine Culture Urogenital microbiota, susceptibilities not performed per laboratory criteria. 07/04/2025 6:50 AM CDT DTL Urine (Urine, Midstream) 07/02/2025 9:29 PM CDT 07/02/2025 9:39 PM CDT Comment:Specimen Source Site : Urine Carlee Armas APRN, Satnam.N.P., Heaven.N.P., M.S.N. LAB MICROBIOLOGY - GENERAL ORDERABLES Final Result [facility] [place] [address] [place] [address], [facility] [address] [place] [address] * Urinalysis, with Microscopic: Urine, Midstream (07/02/2025 [...] M.S. N. LAB URINE ORDERABLES Final Result [facility] [address] [place] [address], [place] DTL [facility] [address] [place] [address] * CT Abdomen Pelvis Enterography with IV [...] without recurrence of the marked splenomegaly seen [id number]. No suspicious lymphadenopathy within the abdomen or [...] M.S. N. IMG CT PROCEDURES Final Result * Surgical Pathology (06/26/2025 11:25 AM CDT) Only the most recent of2 resultswithin the time period is included. 07/01/2025 4:23 PM CDT DTL Report electronically [...] submitted en toto in cassetteB1. Grossed by SAYDAB. C: Received in formalin labeled with the patient's name, medical record number, and esophagus-middle third esophagus, lower thirdesophagus are five pale hrx-dkrb-mrfpmbqge nt irregular soft tissues, ranging from 0.2-0.3 cm in greatest dimension. The specimens aresubmitted en toto in cassette C1. Grossed by SAYDAB. D: Received in formalin labeled with the patient's name, medical record number, and colon-rectum, left colon are five pale wsw-trls-fvqigsbfs lar soft tissues, ranging from 0.2-0.5 cm in greatest dimension. The specimens are submitted en toto in cassette D1. Grossed byLINH. 07/01/2025 4:23 PM CDT DTL Disclaimer This test was developed using an analyte specific reagent. Its performance characteristics were determined by [facility] in a manner consistent with CLIA requirements. [...] LAB SURG PATH ORDERABLES Fi nal Result Performing Organization Address City/[facility]/ZIP Co de Phone Number [facility] [place] [address] [place] [address], [facility] DTL 200 [facility] 200 [place] [address] * Duodenum, Duodenal bulb Upper GI endoscopy-Gastroenterology [...] PROCE DURES Final Result Performing Organization Address [facility] Co de Phone Number [facility] NA * Flexible Sigmoidoscopy (06/26/2025 10:17 AM CDT) 06/26/2025 10:1 7 AM CDT Impressions [facility] - 06/26/2025 11:58 AM CDT Post-op Diagnoses: - Preparation of the colon was poor. - Stool in the rectum and in the sigmoid colon. - The rectum and sigmoid colon are normal where seen. Biopsied to rule out GVHD and CMV as requested. Narrative [facility] - 06/26/2025 11:58 AM CDT Gonda 2 GI Patient Name: Radha Martinez Date of : 1990 Age: 35 Procedure Date: 06/26/2025 Procedure: Flexible Sigmoidoscopy Providers: Tamara Rashid MD Referring Provider: Mckenzie Melvin Pre-op Diagnoses: Abdominal pain, Exclusion of pqbgv-oofnpn-dird disease, Diarrhea Recommendation: - Return patient to [...] D.N.P., M.S.N. GI PROCEDURE ORDERABLES Final Result Performing Organization Address City/State/ZIP Co mn Phone Number [facility] * Upper GI Endoscopy (06/26/2025 10:17 AM CDT) 06/26/2025 10:1 7 AM CDT Impressions [facility] - 06/26/2025 11:54 AM CDT Post-op Diagnoses: [...] out GVHD and CMV as requested. Narrative [facility] - 06/26/2025 11:54 AM CDT Gonda 2 GI Patient Name: Radha Martinez Date of : 1990 Age: 35 Procedure Date: 06/26/2025 Procedure: Upper GI endoscopy Providers: Tamara Rashid MD Referring Provider: Mckenzie Melvin Pre-op Diagnoses: Exclusion of zesos-whuikp-seqn disease, Diarrhea, Nausea with vomiting Recommendation: - [...] RE ORDERABLES Final Result Performing Organization Address [facility] Co de Phone Number MADDI BIRD NA * Prothrombin Time (PT) [...] ADD-ON Fin al Result Performing Organization Address [facility] Co de Phone Number [facility] [place] [address] [place] [address], [facility] [place] [address] * US Pelvis Transvaginal and Transabdominal (06/25/2025 [...] None. Findings discussed with Aditi Candelario APRN, TESTING AND REGULATING TECHNICIAN pager ([phone]) by Dr. Mcelroy 06/25/2025 at 2:09 PM. Procedure Note Marta Mcelroy M.D. - 06/25/2025 EXAM: US PELVIS TRANSVAGINAL AND TRANSABDOMINAL HISTORY: 35-year-old female with suprapubic/lower quadrant discomfort [id number]. COMPARISON: CT abdomen and pelvis 06/24/2025 TECHNIQUE: [...] None. Findings discussed with Aditi Candelario APRN, TESTING AND REGULATING TECHNICIAN pager ([phone]) by Dr. Mcelroy06/25/2025 at 2:09 PM. IMPRESSION: [...] in thegallbladder fossa. us Racquel Candelario APRN C.N.P. IMG US PROCEDURES Fi nal Result [...] per leftventricular function protocol. Last full echocardiogram leelrlupu83/18/2024. LEFT VENTRICLE:Normal left ventricular chamber size. Abnormal [...] report, see the Order-Level Documents. us Mckenzie Cunningham Olegario BRANTLEY, C.N.P., D.N.P. CV ECHO NM OCEDURES Final Result * Chimerism Transplant Sorted Cells (06/25/2025 12:35 AM CDT) Only the most recent of2 resultswithin the time period is included. Specimen Type Peripheral blood 06/29 4:34 PM CDT DTL Interpretation Peripheral blood, chimerism analysis: CD3-positive T-cells: The CD3-positive fraction contains approximately 90% donor DNA and approximately 10% recipient DNA. LE30-swdkusop myeloid cells: The FB84-cetdjkza fraction contains approximately 100% donor DNA and [...] purity of 95% or greater. Markers analyzed: [id number], [id number], FGA, SE33, vWA, D21S11, [id number], [id number], X25A912, D18S51, J1C038, H3U8057, CSF1PO, S8G700, A35Z026, T23X997, TPOX, A06Z813, P1F471 and E1T3022 06/29/2025 4:34 PM CDT DTL Comment: ----ADDITIONAL INFORMATION---- Method summary - Chimerism: Genomic DNA was extracted and the specimen evaluated for the percentages of donor and recipient DNA using a PCR-based method that amplifies several highly polymorphic short tandem repeats (see [facility] Interpretive Handbook for method details). This test was developed and its performance characteristics determined by [facility] in a manner consistent with CLIA requirements. This test has not been cleared or approved by the U.S. Food and Drug Administration. Blood (Blood, Peripheral Draw) 06/25/2025 12:35 AM CDT 06/25/2025 6:57 AM CDT us Mckenzie Melvin APRN, Satnam.N.P., DeniseNKatalinaP. LAB GENETI C TESTING Final Result Performing Organization Address [facility] [place] [address] * hCG (Human Chorionic Gonadotropin), Quantitative, (06/25/2025 12:35 AM CDT) [facility] HCG, Quantitative, , S <0.5 <5 IU/L 06/25/2025 9:57 AM CDT DT Blood (Blood, Venous) 06/25/2025 12:35 AM CDT 06/25/2025 8:35 AM CDT us Racquel Candelario APRN, C.N.P. LAB BLOOD ADD-ON Fin al Result Performing Organization Address [facility] [place] [address] * CT Abdomen Pelvis with IV Contrast [...] opacities from 06/05/2025 have resolved. us Mckenzie Satnam Woodson APRN.N.PKatalina, Isak IMG CT PRO CEDURES Final Result * BCR/ABL1, p210, mRNA Detection, Reverse Mold Yard Crane Operator-PCR (RT-PCR), Quantitative, Monitoring Chronic Myeloid Leukemia [...] level was evaluated using a quantitative, reverse audit control clerk PCR. The analytical sensitivity of this assay [...] all possible fusion forms. Please contact the [facility] at [phone] with questions or if additional testing is required. See the [facility] Interpretive Handbook for method details. The [...] developed and its performance characteristics determined by [facility] in a manner consistent with CLIA requirements. This test has not been cleared or approved by the U.S. Food and Drug Administration. Blood (Blood, Venous) 06/23/2025 8:18 AM CDT 06/23/2025 8:58 AM CDT Tessa Jesus APRN C.N.P., D.N.P. LAB BLOOD NON ADD-ON Final Result [facility] [place] [address] [place] [address], [facility] 200 [facility] 200 [place] [address] * Hematologic Disorders, DNA Extract and Hold [...] the Molecular Hematopathology Laboratory's test menu, contact [facility] at [phone]. Method summary: DNA was extracted using an [employer] Bio[employer]ot ([employer]). 06/15/2025 9:50 AM CDT 06/15/2025 3:07 PM CDT Jessica Barnes LAB BLOOD NON ADD-ON Final Result [facility] [address] [place] [address], [place] DTL [address] [place] [address] * Chimerism Transplant No Cell Sort (06/15/2025 9:50 AM CDT) Specimen Type Bone marrow 06/17/2025 5:01 PM CDT DTL Interpretation These results are considered ancillary findings and require complete integration with the current pathology case [id number] for final interpretation. The result should NOT [...] and recipient DNA mixed chimerism). Markers analyzed: [id number], [id number], FGA, SE33, vWA, D21S11, X73T8612, [id number], Y70H071, D18S51, C1F921, C6J0391, CSF1PO, U0S810, R57U496, D68V279, TPOX, T64T022, S7F729 and [id number] 06/17/2025 5:01 PM CDT DTL Comment: ----ADDITIONAL INFORMATION---- Method summary - Chimerism: Genomic DNA was extracted and the specimen evaluated for the percentages of donor and recipient DNA using a PCR-based method that amplifies several highly polymorphic short tandem repeats (see [facility] Interpretive Handbook for method details). This test was developed and its performance characteristics determined by [facility] in a manner consistent with CLIA requirements. This test has not been cleared or approved by the U.S. Food and Drug Administration. 06/15/2025 9:50 AM CDT 06/15/2025 12:09 PM CDT Jessica Barnes LAB GENETIC TESTING Final Result [facility] [address] [place] [address], [facility] DTL [address] [place] [address] * Myeloid Neoplasms, Comprehensive OncoHeme Next-Generation Sequencing [...] 1). ClinicalTrials.gov : http://clinicaltri als.gov/ct2/search /advanced 2). [facility]: http://www.howe. u/research/clinica l-trials 3). National Cancer [place]: http://www.cancer. gov/clinicaltrials /search 4). The Leukemia & Lymphoma Society's Clinical Trial Support Center https://www.hemato logy.org/education /clinicians/essentia health bo-bahjd-izezgdj-c enter 06/22/2025 3:03 PM CDT DTL Variants of Unknown Significance (VUS) None 06/22/2025 3:03 PM CDT DTL Additional Information None A portion of the testing process was performed at [facility] [employer] site [id number]. 06/22/2025 3:03 PM CDT DTL Method DNA [...] developed and its performance characteristics determined by [facility] in a manner consistent with CLIA requirements. This test has not been cleared or approved by the U.S. Food and Drug Administration. *Some genetic or genomic alterations such as very large insertion/deletion events, copy number alterations (CLIENT SERVICE ASSOCIATE) and gene translocation events are not detected [...] (clonal cytopenias of uncertain significance, CCUS) [PMIDs: [id number], [id number], [id number], and [id number]]. Distinction between CHIP or CCUS and a [...] very large insertion/deletion events, copy number alterations (CLIENT SERVICE ASSOCIATE) and gene translocation events are not detected [...] require complete integration with current pathology case [id number] for final interpretation. The result should NOT [...] 06/15/2025 3:07 PM CDT Jessica Barnes LAB GENETIC TESTING Final Result [facility] [address] [place] [address], [place] DTL [address] [place] [address] * NM DX BONE MARROW BX & ASPIR (06/15/2025 9:45 AM CDT) Bone Marrow Narrative [facility] - 06/15/2025 9:45 AM CDT Kevin Villa R.N. 06/15/2025 9:53 AM Biopsy Bone Marrow, Sedated Performed by: Kevin Villa R.N. Authorized by: Jessica Rousseau M.B.B.SKatalina Care team members present 1. Kevin Villa [...] COMMENTS 100 mg 1% Lidocaine given SQ. Jessica Barnes PROCEDURE/MINOR SURGICAL O RDERABLES Final Result [facility] NA * Hematopathology (06/15/2025 12:00 AM CDT) 06/16/2025 10:32 AM [facility] Report electronically signed by Hanna Xiong M.D., Ph.D. I verify that I have examined all relevant slides/materials for the specimen(s) and rendered or confirmed the diagnosis. 06/16/2025 10:32 AM [facility] Gross Description B: Core biopsy specimens were [...] C1. Grossed by OER. 06/16/2025 10:32 AM [facility] Addendum ADDENDUM Molecular analysis for next generation sequencing (NGSHM), bone marrow ([id number]; 06/15/2025): Pathogenic Mutations Detected: None No other [...] chimerism transplant no cell sort, bone marrow ([id number]; 06/15/2025): The specimen contains approximately 100% donor DNA and approximately 0% recipient DNA. 3 informative loci were used in the analysis of this sample. See molecular report for complete details. Molecular Hematopathology studies interpreted by Jaylin Beltran M.D. Signed by Hanna Xiong M.D., Ph.D. 06/18/2025 11:35 AM ADDENDUM Molecular analysis for BCR/ABL1, p210, quant, bone marrow ([id number]; 06/15/2025): Negative. No BCR/ABL1 p210 mRNA transcripts [...] Ph.D. 06/16/2025 3:33 PM 06/23/2025 8:41 AM [facility] Comment:REVISED RESULTS Interpretation FINAL DIAGNOSIS Peripheral [...] date of extraction. 06/23/2025 8:41 AM CDT [facility] 06/15/2025 06/15/2025 6:5 3 AM CDT Jessica Barnes LAB SURG PATH ORDERABLES E dited Result - Final [facility] [place] [address] [place] [address], [facility] 200 [facility] 200 [place] [address] * NT-Pro B-Type Natriuretic Peptide (BNP) (06/07/2025 [...] BLOOD ADD-ON Final Result Performing Organization Address City/[facility]/ZIP Co de Phone Number [facility] [place] [address] [place] [address], [facility] 200 [place] [address] * (ABNORMAL) C-Reactive Protein, High Sensitivity (06/07/2025 [...] BLOOD ADD-ON Final Result Performing Organization Address [facility] Co de Phone Number [facility] [place] [address] [place] [address] * Troponin T, 5th Generation (06/07/2025 12:12 PM CDT) Pathologist [facility] Troponin T, 5th gen <6 <=10 ng/L 06/07/2025 1:04 PM CDT DTL Blood (Blood, Venous) 06/07/2025 12:12 PM CDT 06/07/2025 12:19 PM CDT Analia Gamez APRN, C.N.P. LAB BLOOD ADD-ON Final Result Performing Organization Address [facility] de Phone Number [facility] [place] [address] [place] [address] * CT Chest Angiogram and Pulmonary Arteries [...] pleural fluid accumulation. 5. Probable hepatic steatosis. us Jessica Avila APRN, C.N.P., M.S.N. IMG CT PROC EDURES Final Result * Upper GI Endoscopy (06/01/2025 1:11 PM CDT) 06/01/2025 1:11 PM CDT Impressions [facility] - 06/01/2025 1:56 PM CDT Post-op Diagnoses: - Normal esophagus. Biopsied. - Normal stomach. Biopsied. - A few gastric polyps with fundic gland appearance. - Normal examined duodenum. Biopsied. 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 [...] PROCEDURE ORDERABLES Final Result Performing Organization Address City/[facility] Co de Phone Number [facility] NA * Clostridioides (Clostridium) Difficile Toxin, Molecular Detection, PCR, Feces (05/17/2025 2:42 PM CDT) Pathologist [facility] C. difficile Toxin, F Negative Negative 05/17/2025 3:59 PM CDT DTL Stool (Stool) 05/17/2025 2:4 2 PM CDT 05/17/2025 3:13 PM CDT Tiffani Leroy APRN, C.N.P., D.N.P. LAB MICROBIOLOGY - GENERAL ORDERABLES Final Result Performing Organization Address City/[facility] Co de Phone Number [facility] [place] [address] [place] [address], [facility] DTL [facility] [address] [place] [address] * (ABNORMAL) CD4 Count for Immune Monitoring [...] reagent. Its performance characteristics were determined by [facility] in a manner consistent with CLIA requirements. This test has not been cleared or approved by the U.S. Food and Drug Administration. Blood (Blood, Venous) 04/29/2025 9:42 AM CDT 04/29/2025 11:38 AM CDT Jessica Barnes LAB BLOOD ADD-ON Final Res ult [facility] [place] [address] [place] [address] [facility] [address] [place] [address] [place] [address] * (ABNORMAL) Lipid Panel (03/24/2025 9:29 AM [...] Barnes LAB BLOOD ADD-ON Final Res ult [facility] [place] [address] [place] [address], [facility] [address] [place] [address] * Pulmonary Function Tests (03/23/2025 9:48 AM CDT) FVC 5.33 L 03/23/2025 11:15 AM CDT [facility] FEV1 4.40 L 03/23/2025 11:15 AM CDT [facility] FEV1/FVC 82.70 % 03/23/2025 11:15 AM CDT [facility] WSC15-70% 4.89 L/s 03/23/2025 11:15 AM CDT [facility] PEF PRE 8.01 L/s 03/23/2025 11:15 AM CDT [facility] PIF PRE 8.12 L/s 03/23/2025 11:15 AM CDT [facility] Pre FEF50/FIF50 77.59 % 03/23/2025 11:15 AM CDT [facility] FET PRE 6.33 sec 03/23/2025 11:15 AM CDT [facility] DLCO 22.95 ml/(min*mm Hg) 03/23/2025 11:15 AM CDT [facility] DLCOc 24.32 ml/(min*mm Hg) 03/23/2025 11:15 AM CDT [facility] HB 11.70 g(Hb)/dL 03/23/2025 11:15 AM CDT [facility] Pre % Pred [place] SINGLE BREATH 6.32 L 03/23/2025 11:15 AM CDT [facility] PulseRest 70.00 1/min 03/23/2025 11:15 AM CDT [facility] L3ZllJwbx 98.00 % 03/23/2025 11:15 AM CDT [facility] PulseExer 121.00 1/min 03/23/2025 11:15 AM CDT [facility] EXER TIME 3.00 min 03/23/2025 11:15 AM CDT [facility] STEP HEIGHT PRE 9.00 Inch 03/23/2025 11:15 AM CDT [facility] 03/23/2025 9:48 AM CDT Impressions [facility] - 03/23/2025 11:15 AM CDT [...] Jessica Barnes PFT ORDERABLES Final Resu lt [facility] NA * ThinPrep w/HPV Co-Test Screen (10/15/2019 11:05 AM CUSTOMER SUPPORT ANALYST) 10/21/2019 4:10 PM CUSTOMER SUPPORT ANALYST [facility] Report electronically signed by JEFF Mora(ASCP) I verify that I have examined all relevant slides/materials for the specimen(s) and rendered or confirmed the diagnosis. 10/21/2019 4:10 PM CUSTOMER SUPPORT ANALYST [facility] Gross Description Received specimen in a ThinPrep vial. 10/21/2019 4:10 PM CUSTOMER SUPPORT ANALYST [facility] Pap Test Source Cervical/Endocervi lolly 10/21/2019 4:10 PM CUSTOMER SUPPORT ANALYST [facility] Clinical History other 10/21/20 19 4:10 PM CUSTOMER SUPPORT ANALYST [facility] Menstrual Status(LMP, PM, ) on depo lupron 10/21/2019 4:10 PM CUSTOMER SUPPORT ANALYST [facility] Hormone Therapy/Contracep tives Hormone Replacement Therapy 10/21/2019 4:10 PM CUSTOMER SUPPORT ANALYST [facility] Interpretation Cervical/Endocervi lolly (ThinPrep): Satisfactory for Evaluation Negative for Intraepithelial Lesion or Malignancy High Risk HPV: Negative Negative for High Risk HPV by nucleic acid amplification. The following High Risk HPV types were not detected: 16, 18, 31, 33, 35, 39, 45, 51, 52, 56, 58, 59, 66, and 68. 10/21/2019 4:10 PM CUSTOMER SUPPORT ANALYST [facility] Varies (Cervix/Endocerv ix) 10/15/2019 11:05 AM CUSTOMER SUPPORT ANALYST 10/17/2019 7:54 AM CUSTOMER SUPPORT ANALYST us Adore Alonso M.D. LAB PAP PATHDX ORDERABLE S Final Result [facility] [address] [place] [address], [facility] [address] [place] [phone] * HCV Ab Scrn w/Reflex to HCV PCR, Serum (12/12/2018 5:58 PM CUSTOMER SUPPORT ANALYST) HCV Ab Screen, S Negative Negative 12/12/2018 10:26 PM CUSTOMER SUPPORT ANALYST [facility] Comment:Tpfuyx-zj-axzbgn rat io is <1.00. Blood (Blood, Venous) 12/12/2018 5:58 PM CUSTOMER SUPPORT ANALYST 12/12/2018 7:59 PM CUSTOMER SUPPORT ANALYST Satnam Keenan APRN .N.P., D.N.P. LAB MICROBIOLOGY - BLOOD ORDERABLES Final Result [facility] [address] [place] [address] * Hepatitis B Surface Antigen (12/12/2018 5:58 PM CUSTOMER SUPPORT ANALYST) HBs Antigen, S Negative Negative 12/12/2018 10:08 PM CUSTOMER SUPPORT ANALYST [facility] Blood (Blood, Venous) 12/12/2018 5:58 PM CUSTOMER SUPPORT ANALYST 12/12/2018 7:59 PM CUSTOMER SUPPORT ANALYST Satnam Keenan APRN .N.P., D.N.P. LAB MICROBIOLOGY - BLOOD ORDERABLES Final Result Performing Organization Address City/[facility]/ZIP Co de Phone Number [facility] [address] [place] [address] from Last 3 Months or Most Recently Relevant to Health Maintenance Additional Health Concerns Active Problems Noted Date Diagnosed Date [facility] Care Plan for Colonoscopy Routine Pr ep 07/16/2025 Autogenerated Problem 07/16/2025 Infection Onset Date Last Indicated Protective Environment 03/02/2023 3 Insurance 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 Advance Directives 12/08/2024 9:32 AM Gabrielle Minor HCPOA/ADVOCATE/AGENT/R EPRESENTATIVE/SURROGAT E * Full Code (Latest Code Status on File) Date Activated Date Inactivated Comments 07/02/2025 8:48 PM 07/06/2025 5:08 PM Question Answer Comments Full Code: Discussed * Full Code Date Activated Date Inactivated Comments 06/24/2025 3:03 [...] Agents on File Name Relationship Healthcare Agent Relationshi p Communication Gabrielle Martinez Mother Health Care Agent Charles Harishisabella Significant Other First Alternat e Health Care Agent Care Teams Casing Runner Relationship Specialty Start Date End Date Renzo Andres M.D. [address] [place] [phone] PCP - General Family Medicine 04/25/23
--- OUTSIDE RECORDS SUMMARY | 2025-07-19 18:13 | XMS_ITS | Encounter Summary ---
Author Organization [facility] Address [address] [place] [address] Care Team Providers Care Manager Wound Care Name Role Phone Renzo Andres M.D. Primary Care Provider Encounter Details Date Type Department Care Team (Late st Contact Info) Description 06/27/2025 Orders Only [facility], Ninth Floor [address] [place] [address] Analia Carter, COSMETIC CONSULTANT, C.N.P. [address] [place] [phone] Transplant Bone Marrow Allogeneic (HCC); Leukemia Myeloid [...] things needed for daily living? No 07/02/2025 [facility] Utilities Answer Date Recorded In the past 12 months has e electric, gas, oil, or water [employer] threatened to shut off services in your home? No 07/02/2025 Depression Answer Date Recor ded PHQ-9 Total Score (max 27) 12 07/08 Housing Stability Answer Date Recorded What is your living situation today? I have a [facility] place to live 07/02/2025 Education Answer Date Recorded What is the highest level of school you have completed or the highest degree you have received? Some college, no degree 04/24/2019 Comments No Sex and Gender Information Value Date Recorded Sex Assigned at Female 12/26/2018 8:37 PM GLUING MACHINE OPERATOR Legal Sex Female 2:43 PM GLUING MACHINE OPERATOR Gender Identity Female 12/26/2018 8:37 PM GLUING MACHINE OPERATOR Sexual Orientation Choose not to disclose 2020 3:46 PM CDT documented as of this encounter Plan of Treatment Upcoming Encounters Date Type Department Care Team (Late st Contact Info) Description 07/21/2025 11:00 AM CDT Telemedicine Department of Palliative Care in [place], [place] [address] [place] [address] Meghan Osorio M.D. [address] [place] [phone] 07/22/2025 8:40 AM CDT Lab Department of Laboratory Medicine and Pathology, [facility], in [place], [place] [address] [place] [phone] Becky Hernandez APRN C.N.P., D.N.P. [address] [place] [phone] 07/22/2025 9:30 AM CDT Office Visit [facility] Clinical [facility] in [place], [place] [address] [place] [phone] Becky Hernandez APRN, C.N.P., D.N.P. [address] [place] [phone] 07/30/2025 2:00 PM CDT Appointment Division of Gastroenterology in [place], [place] [address] [place] [phone] Derrick Cruz Jr., M.D., M.S. [address] [place] [phone] 08/11/2025 9:00 AM CDT Nurse Only Section of Infectious Diseases in [place], [place] [address] [place] [phone] Jessica Rousseau M.B.B.S. [address] [place] [phone] 08/11/2025 1:00 PM CDT Clinical Support Department of Palliative Care in [place], [place] [address] [place] [phone] Uma Aly APRN, C.N.P., M.S.N. [address] [place] [phone] 08/13/2025 10:00 AM CDT Lab Department of Laboratory Medicine and Pathology, [facility], in [place], [place] [address] [place] [address] Jessica Rousseau M.B.B.S. [address] [place] [phone] 08/13/2025 10:30 AM CDT Office Visit [facility] in [place], [place] [address] [place] [phone] Jessica Rousseau M.B.B.S. [address] [place] [phone] 08/13/2025 11:00 AM CDT Nurse Only [facility] in [place], [place] [address] [place] [address] Jessica Rousseau M.B.B.S. [address] [place] [phone] 08/13/2025 11:30 AM CDT Office Visit [facility] in [place], [place] [address] [place] [address] Jessica Rousseau M.B.B.S. [address] [place] [phone] 09/25/2025 10:30 AM GLUING MACHINE OPERATOR Telemedicine [facility] in [place], [place] [address] [place] [address] Jessica Rousseau M.B.B.S. 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 [address] [place] [phone] PCP - General Family Medicine 04/25/23 documented as of this encounter
--- OUTSIDE RECORDS SUMMARY | 2025-07-19 18:13 | XMS_ITS | Encounter Summary ---
Author Organization [facility] Address [address] [place] [address] Care Team Providers Care Mutual Funds Agent Name Role Phone Renzo Andres M.D. Primary Care Provider Encounter Details Date Type Department Care Team (Late st Contact Info) Description 07/02/2025 Clinical Communication [facility], Ninth Floor [address] [place] [address] Jaya Perkins, M.S.N., R.N. [address] [place] [phone] Social History Tobacco Use Types Packs/Day Years [...] needed for daily living? No 07/02/2025 [facility] Utilities Answer Date Recorded In the past 12 months has th e [employer], gas, oil, or water company threatened to shut off services in your home? No 07/02/2025 Depression Answer Date Recor ded PHQ-9 Total Score (max 27) 2 12/10 Housing Stability Answer Date Recorded What is your living situation today? I have a [facility] place to live 07/02/2025 Education Answer Date Recorded What is the highest level of school you have completed or the highest degree you have received? Some college, no degree 04/24/2019 Comments No Sex and Gender Information Value Date Recorded Sex Assigned at Female 12/26/2018 8:37 PM DRUG ABUSE TREATMENT SPECIALIST Legal Sex Female 2:43 PM DRUG ABUSE TREATMENT SPECIALIST Gender Identity Female 12/26/2018 8:37 PM DRUG ABUSE TREATMENT SPECIALIST Sexual Orientation Choose not to disclose 2020 3:46 PM CDT documented as of this encounter Miscellaneous Notes * Telephone Encounter - Jaya Perkins M.S.N., R.N. - 07/02/2025 6:32 PM CDT Patient called at [phone] regarding symptoms of nausea and vomiting (had already tried Zofran and compazine with no relief), urinary frequency and urgency, anxiety (had already tried atarax), HTN (165/110 per pt report, with [place] 3/10), and ongoing abdominal pain. RN reported symptoms to provider, provider requested that patient be admitted to the hospital for symptom management. Patient is agreeable to this plan and will arrive for admission this evening. Patient will call if symptoms worsen or new symptoms arise. documented in this encounter Plan of Treatment Upcoming Encounters Date Type Department Care Team (Late st Contact Info) Description 07/21/2025 11:00 AM CDT Telemedicine Department of Palliative Care in [place], [place] [address] [place] [phone] Meghan Osorio M.D. [address] [place] [phone] 07/22/2025 8:40 AM CDT Lab Department of Laboratory Medicine and Pathology, [facility], in [place], [place] [address] [place] [phone] Becky Hernandez APRN C.N.P., D.N.P. [address] [place] [phone] 07/22/2025 9:30 AM CDT Office Visit [facility] for Transplantation and Clinical Regeneration in [place], [place] [address] [place] [phone] Becky Hernandez APRN, C.N.P., D.N.P. [address] [place] [phone] 07/30/2025 2:00 PM CDT Appointment Division of Gastroenterology in [place], [place] [address] [place] [phone] Derrick Cruz Jr., M.D., M.S. [address] [place] [phone] 08/11/2025 9:00 AM CDT Nurse Only Section of Infectious Diseases in [place], [place] [address] [place] [address] Jessica Rousseau M.B.B.S. [address] [place] [phone] 08/11/2025 1:00 PM CDT Clinical Support Department of Palliative Care in [place], [place] [address] [place] [phone] Uma Aly APRN, C.N.P., M.S.N. [address] [place] [phone] 08/13/2025 10:00 AM CDT Lab Department of Laboratory Medicine and Pathology, [facility], in [place], [place] [address] [place] [phone] Jessica Rousseau M.B.B.S. [address] [place] [phone] 08/13/2025 10:30 AM CDT [facility] in [place], [place] [address] [place] [address] Jessica Rousseau M.B.B.S. [address] [place] [phone] 08/13/2025 11:00 AM CDT Nurse Only [facility] in [place], [place] [address] [place] [phone] Jessica Rousseau M.B.B.S. [address] [place] [phone] 08/13/2025 11:30 AM CDT Office Visit [facility] Clinical [facility] in [place], [place] [address] [place] [address] Jessica Rousseau M.B.B.S. [address] [place] [phone] 09/25/2025 10:30 AM DRUG ABUSE TREATMENT SPECIALIST Telemedicine [facility] Transplantation and Clinical Regeneration in [place], [place] [address] [place] [phone] Jessica Rousseau M.B.B.S. [address] [place] [phone] documented as of this encounter Visit Diagnoses Not on filedocumented in this encounter Additional Health Concerns Infection Onset Date Last Indicated Resolved Time Protective Environment 03/02/2023 03/02/2023 Assessment Noted Time PHQ-9 Depression Total Score: 2 12/10/19 25 2:46 PM DRUG ABUSE TREATMENT SPECIALIST documented as of this encounter Care Teams Mutual Funds Agent Relationship Specialty Start Date End Date Renzo Andres M.D. [address] [place] [phone] PCP - General Family Medicine 04/25/23 documented as of this encounter
--- OUTSIDE RECORDS SUMMARY | 2025-07-19 18:13 | XMS_ITS | Encounter Summary ---
Author Organization [facility] Address [address] [place] [address] Care Team Providers Care Patient Monitor Name Role Phone Renzo Andres M.D. Primary Care Provider Encounter Details Date Type Department Care Team (Late st Contact Info) Description 06/27/2025 Orders Only [facility], [facility], Ninth Floor [address] [place] [address] Carlee Armas APRN, C.N.P., D.N.P., M.S.N. [address] [place] [phone] Abdominal Pain (Primary Dx); Transplant Stem Cell [...] things needed for daily living? No 06/24/2025 [facility] Utilities Answer Date Recorded In the past 12 months has th e electric, gas, oil, or water company threatened to shut off services in your home? No 06/24/2025 Depression Answer Date Recor ded PHQ-9 Total Score (max 27) 2 12/10 Housing Stability Answer Date Recorded What is your living situation today? I have a [facility] place to live 06/24/2025 Education Answer Date Recorded What is the highest level of school you have completed or the highest degree you have received? Some college, no degree 04/24/2019 Comments No Sex and Gender Information Value Date Recorded Sex Assigned at Female 12/26/2018 8:37 PM SOFTWARE TOOLS DEVELOPER Legal Sex Female 2:43 PM SOFTWARE TOOLS DEVELOPER Gender Identity Female 12/26/2018 8:37 PM SOFTWARE TOOLS DEVELOPER Sexual Orientation Choose not to disclose 2020 3:46 PM CDT documented as of this encounter Plan of Treatment Upcoming Encounters Date Type Department Care Team (Late st Contact Info) Description 07/21/2025 11:00 AM CDT Telemedicine Department of Palliative Care in [place], [place] [address] [place] [address] Meghan Osorio M.D. [address] [place] [phone] 07/22/2025 8:40 AM CDT Lab Department of Laboratory Medicine and Pathology, [facility], in [place], [place] [address] [place] [address] Becky Hernandez APRN, C.N.P., D.N.P. [address] [place] [phone] 07/22/2025 9:30 AM CDT Office Visit Pedro Aravind [facility] for Transplantation and Clinical Regeneration in [place], [place] [address] [place] [phone] Becky Hernandez APRN, C.N.P., D.N.P. [address] [place] [phone] 07/30/2025 2:00 PM CDT Appointment Division of Gastroenterology in [place], [place] [address] [place] [phone] Derrick Cruz Jr., M.D., M.S. [address] [place] [phone] 08/11/2025 9:00 AM CDT Nurse Only Section of Infectious Diseases in [place], [place] [address] [place] [phone] Jessica Rousseau M.B.B.S. [address] [place] [phone] 08/11/2025 1:00 PM CDT Clinical Support Department of Palliative Care in [place], [place] [address] [place] [phone] Uma Aly APRN, C.N.P., M.S.N. [address] [place] [address] 08/13/2025 10:00 AM CDT Lab Department of Laboratory Medicine and Pathology, [facility], in [place], [place] [address] [place] [address] Jessica Rousseau M.B.B.S. [address] [place] [address] 08/13/2025 10:30 AM CDT [facility] in [place], [place] [address] [place] [address] Jessica Rousseau M.B.B.S. [address] [place] [phone] 08/13/2025 11:00 AM CDT Nurse [facility] in [place], [place] [address] [place] [address] Jessica Rousseau M.B.B.S. [address] [place] [phone] 08/13/2025 11:30 AM CDT [facility] in [place], [place] [address] [place] [address] Jessica Rousseau M.B.B.S. [address] [place] [phone] 09/25/2025 10:30 AM SOFTWARE TOOLS DEVELOPER Telemedicine Pedro [facility] in [place], [place] [address] [place] [address] Jessica Rousseau M.B.B.S. 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 [address] [place] [phone] PCP - General Family Medicine 04/25/23 documented as of this encounter
--- OUTSIDE RECORDS SUMMARY | 2025-07-19 18:13 | XMS_ITS | Encounter Summary ---
Author Organization [facility] Address [address] [place] [address] Care Team Providers Care Baby Formula Worker Name Role Phone Renzo Andres M.D. Primary Care Provider Reason for Referral * Outpatient (Routine) - Authorized Specialty Diagnoses / Procedures Referred By Contac t Referred To Contact Pharmacy Arlen James APRN, C.N.P., D.N.P. [address] [place] [phone] Phone: tel: fax: [facility] Referral ID Status Reason Start Date Expiration Date V isits Requested Visits Authorized [id number] Authorized 06/08/2025 12/08/2026 1 1 Scheduling Instructions Please schedule with pharmacist for 30 minutes. Please schedule ANUPAM/RN joint visit on 06/10/25. Encounter Details Date Type Department Care Team (Latest Contact Info) Description 06/08/2025 Clinical Communication Pedro Fatima [place] [facility] Trans[facility] Clinical Regeneration in [place], [place] [address] [place] [phone] Jessica Rousseau M.B.B.S. [address] [place] [address] Social History Tobacco Use Types Packs/Day Years [...] things needed for daily living? No 07/02/2025 [facility] Utilities Answer Date Recorded In the past 12 months has [facility] electric, gas, oil, or water company threatened to shut off services in your home? No 07/02/2025 Depression Answer Date Recor ded PHQ-9 Total Score (max 27) 12 07/08 Housing Stability Answer Date Recorded What is your living situation today? I have a [facility] place to live 07/02/2025 Education Answer Date Recorded What is the highest level of school you have completed or the highest degree you have received? Some college, no degree 04/24/2019 Comments No Sex and Gender Information Value Date Recorded Sex Assigned at Female 12/26/2018 8:37 PM WIRELESS RETAIL MANAGER Legal Sex Female 2:43 PM WIRELESS RETAIL MANAGER Gender Identity Female 12/26/2018 8:37 PM WIRELESS RETAIL MANAGER Sexual Orientation Choose not to disclose 2020 3:46 PM CDT documented as of this encounter Miscellaneous Notes * Telephone Encounter - Elise Pizarro, RKatalinaN. - 06/08/2025 11:09 AM CDT Per infectious [...] today as we cannot schedule this at [facility] locations. She will let us know if she is having rouble with this. She is willing to be seen in clinic on Sunday06/10/25 since she Danish already be in [place] for other appointments. Will request this and send orders to [facility] group for review. documented in this encounter Plan of Treatment Upcoming Encounters Date Type Department Care Team (Late st Contact Info) Description 07/21/2025 11:00 AM CDT Telemedicine Department of Palliative Care in [place], [place] [address] [place] [phone] Meghan Osorio M.D. [address] [place] [phone] 07/22/2025 8:40 AM CDT Lab Department of Laboratory Medicine and Pathology, [facility], in [place], [place] [address] [place] [phone] Becky Hernandez APRN, C.N.P., D.N.P. [address] [place] [phone] 07/22/2025 9:30 AM CDT Office Visit [facility] in [place], [place] [address] [place] [phone] Becky Hernandez APRN, C.N.P., D.N.P. [address] [place] [phone] 07/30/2025 2:00 PM CDT Appointment Division of Gastroenterology in [place], [place] [address] [place] [phone] Derrick Cruz Jr., M.D., M.S. [address] [place] [phone] 08/11/2025 9:00 AM CDT Nurse Only Section of Infectious Diseases in [place], [place] [address] [place] [phone] Jessica Rousseau M.B.B.S. [address] [place] [phone] 08/11/2025 1:00 PM CDT Clinical Support Department of Palliative Care in [place], [place] [address] [place] [phone] Uma Aly APRN, C.N.Jean., M.S.N. [address] [place] [phone] 08/13/2025 10:00 AM CDT Lab Department of Laboratory Medicine and Pathology, [facility], in [place], [place] [address] [place] [phone] Jessica Rousseau M.B.B.S. [address] [place] [address] 08/13/2025 10:30 AM CDT Office Visit [facility] in [place], [place] [address] [place] [address] Jessica Rousseau M.B.B.S. [address] [place] [phone] 08/13/2025 11:00 AM CDT Nurse Only [facility] Transplantation and Clinical Regeneration in [place], [place] [address] [place] [address] Jessica Rousseau M.B.B.S. [address] [place] [address] 08/13/2025 11:30 AM CDT Office Visit [facility] for Transplantation and Clinical Regeneration in [place], [place] [address] [place] [address] Jessica Rousseau M.B.B.S. [address] [place] [phone] 09/25/2025 10:30 AM WIRELESS RETAIL MANAGER Telemedicine [facility] Transplantation and Clinical Regeneration in [place], [place] [address] [place] [address] Jessica Rousseau M.B.B.S. [address] [place] [phone] Scheduled Orders Name Type Priority Associated Diagnoses [...] Total Score: 2 12/10/19 25 2:46 PM WIRELESS RETAIL MANAGER documented as of this encounter Care Teams Baby Formula Worker Relationship Specialty Start Date End Date Renzo Andres M.D. [address] [place] [phone] PCP - General Family Medicine 04/25/23 documented as of this encounter
--- OUTSIDE RECORDS SUMMARY | 2025-07-19 18:13 | XMS_ITS | Encounter Summary ---
Author Organization [facility] Address [address] [place] [address] Care Team Providers Care Forest Scientist Name Role Phone Renzo Andres M.D. Primary Care Provider Reason for Visit * Reason Onset Date Comments Medication Problem 07/08/2025 Encounter Details Date Type Department Care Team (Latest Contact Info) Description 07/08/2025 Clinical Communication [facility] [address] [place] [phone] Adrián Arechiga, Pharm.D., R.Ph. [address] [place] [phone] Medication Problem Social History Tobacco Use Types Packs/Day Years [...] needed for daily living? No 07/02/2025 [facility] Utilities Answer Date Recorded In the past 12 months has th e electric, gas, oil, or water company threatened to shut off services in your home? No 07/02/2025 Depression Answer Date Recor ded PHQ-9 Total Score (max 27) 12 07/08 Housing Stability Answer Date Recorded What is your living situation today? I have a [facility] place to live 07/02/2025 Education Answer Date Recorded What is the highest level of school you have completed or the highest degree you have received? Some college, no degree 04/24/2019 Comments No Sex and Gender Information Value Date Recorded Sex Assigned at Female 12/26/2018 8:37 PM PRINTED CIRCUIT DESIGNER Legal Sex Female 2:43 PM PRINTED CIRCUIT DESIGNER Gender Identity Female 12/26/2018 8:37 PM PRINTED CIRCUIT DESIGNER Sexual Orientation Choose not to disclose 2020 3:46 PM CDT documented as of this encounter Plan of Treatment Upcoming Encounters Date Type Department Care Team (Late st Contact Info) Description 07/21/2025 11:00 AM CDT Telemedicine Department of Palliative Care in [place], [place] [address] [place] [address] Meghan Osorio M.D. 200 [place] [address] 07/22/2025 8:40 AM CDT Lab Department of Laboratory Medicine and Pathology, [facility], in [place], [place] [address] [place] [phone] Becky Hernandez APRN C.N.P., D.N.P. [address] [place] [phone] 07/22/2025 9:30 AM CDT Office Visit [facility] in [place], [place] [address] [place] [address] Becky Hernandez APRN, C.N.P., D.N.P. [address] [place] [phone] 07/30/2025 2:00 PM CDT Appointment Division of Gastroenterology in [place], [place] [address] [place] [phone] Derrick Cruz Jr., M.D., M.S. [address] [place] [phone] 08/11/2025 9:00 AM CDT Nurse Only Section of Infectious Diseases in [place], [place] [address] [place] [phone] Jessica Rousseau M.B.B.S. [address] [place] [phone] 08/11/2025 1:00 PM CDT Clinical Support Department of Palliative Care in [place], [place] [address] [place] [phone] Uma Aly APRN C.N.P., M.S.N. [address] [place] [phone] 08/13/2025 10:00 AM CDT Lab Department of Laboratory Medicine and Pathology, [facility], in [place], [place] [address] [place] [address] Jessica Rousseau M.B.B.S. [address] [place] [phone] 08/13/2025 10:30 AM CDT [facility] in [place], [place] [address] [place] [address] Jessica Rousseau M.B.B.S. [address] [place] [phone] 08/13/2025 11:00 AM CDT Nurse Only Pedro Fatima [facility] Transplantation and Clinical Regeneration in [place], [place] [address] [place] [address] Jessica Rousseau M.B.B.S. [address] [place] [phone] 08/13/2025 11:30 AM CDT [facility] in [place], [place] [address] [place] [address] Jessica Rousseau M.B.B.S. [address] [place] [phone] 09/25/2025 10:30 AM PRINTED CIRCUIT DESIGNER Telemedicine [facility] in [place], [place] [address] [place] [address] Jessica Rousseau M.B.B.S. [address] [place] [phone] documented as of this encounter Visit Diagnoses Not on filedocumented in this encounter Additional Health Concerns Infection Onset Date Last Indicated Resolved Time Protective Environment 03/02/2023 03/02/2023 Assessment Noted Time PHQ-9 Depression Total Score: 12 025 9:42 AM CDT documented as of this encounter Care Teams Forest Scientist Relationship Specialty Start Date End Date Renzo Andres M.D. [address] [place] [phone] PCP - General Family Medicine 04/25/23 documented as of this encounter
--- OUTSIDE RECORDS SUMMARY | 2025-07-19 18:13 | XMS_ITS | Encounter Summary ---
Author Organization [facility] Address [address] [place] [address] Care Team Providers Care Anvil Worker Name Role Phone Renzo Andres M.D. Primary Care Provider [phone] Reason for Visit * Reason Onset Date Comments Flexible Sigmoidoscopy 06/29/2025 Abdominal Pain 06/29/2025 Encounter Details Date Type Department Care Team (Latest Contact Info) Description 06/29/2025 Clinical Communication Division of Hematology in [place], [place] [address] [place] [phone] Jessica Rousseau M.B.B.S. [address] [place] [phone] Flexible Sigmoidoscopy; Abdominal Pain Social History Tobacco [...] things needed for daily living? No 07/02/2025 [facility] Utilities Answer Date Recorded In the past 12 months has [employer], gas, oil, or water [employer] threatened to shut off services in your [...] Assigned at Female 12/26/2018 8:37 PM PASSENGER FLAGMAN Legal Sex Female 2:43 PM PASSENGER FLAGMAN Gender Identity Female 12/26/2018 8:37 PM PASSENGER FLAGMAN Sexual Orientation Choose not to disclose 2020 [...] CDT Telemedicine Department of Palliative Care in [place], [place] [address] [place] [phone] Meghan Osorio M.D. [address] [place] [phone] 07/22/2025 8:40 AM CDT Lab Department of Laboratory Medicine and Pathology, [facility], in [place], [place] [address] [place] [address] Becky Hernandez APRN, C.N.P., D.N.P. [address] [place] [phone] 07/22/2025 9:30 AM CDT Office Visit Pedro Aravind [facility] for Transplantation and Clinical Regeneration in [place], [place] [address] [place] [phone] Becky Hernandez APRN C.N.P., D.N.P. [address] [place] [phone] 07/30/2025 2:00 PM CDT Appointment Division of Gastroenterology in [place], [place] [address] [place] [phone] Derrick Cruz Jr., M.D., M.S. [address] [place] [phone] 08/11/2025 9:00 AM CDT Nurse Only Section of Infectious Diseases in [place], [place] [address] [place] [phone] Jessica Rousseau M.B.B.S. [address] [place] [phone] 08/11/2025 1:00 PM CDT Clinical Support Department of Palliative Care in [place], [place] [address] [place] [phone] Uma Aly APRN, C.N.P., M.S.N. [address] [place] [phone] 08/13/2025 10:00 AM CDT Lab Department of Laboratory Medicine and Pathology, [facility], in [place], [place] [address] [place] [phone] Jessica Rousseau M.B.B.S. [address] [place] [phone] 08/13/2025 10:30 AM CDT [facility] in [place], [place] [address] [place] [address] Jessica Rousseau M.B.B.S. [address] [place] [phone] 08/13/2025 11:00 AM CDT Nurse Only [facility] Transplantation and Clinical Regeneration in [place], [place] [address] [place] [address] Jessica Rousseau M.B.B.S. [address] [place] [phone] 08/13/2025 11:30 AM CDT Office Visit [facility] in [place], [place] [address] [place] [address] Jessica Rousseau M.B.B.S. [address] [place] [phone] 09/25/2025 10:30 AM PASSENGER FLAGMAN Telemedicine [facility] Transplantation and Clinical Regeneration in [place], [place] [address] [place] [address] Jessica Rousseau M.B.B.S. 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 [address] [place] [address] [place] [phone] PCP - General Family Medicine 04/25/23 documented as of this encounter
--- OUTSIDE RECORDS SUMMARY | 2025-07-19 18:13 | XMS_ITS | Encounter Summary ---
Author Organization [facility] Address [address] [place] [address] Care Team Providers Care Beauty Shop Manager Name Role Phone Renzo Andres M.D. Primary Care Provider [phone] Encounter Details Date Type Department Care Team (Late st Contact Info) Description 07/10/2025 Clinical Communication [facility], Ninth Floor [address] [place] [phone] Lucy Stout, R.N., BMT-CN, O.C.N. Social History [...] things needed for daily living? No 07/02/2025 [facility] Utilities Answer Date Recorded In [...] Sex Assigned at Female 12/26/2018 8:37 PM INSURANCE LOSS ADJUSTER Legal Sex Female 2:43 PM INSURANCE LOSS ADJUSTER Gender Identity Female 12/26/2018 8:37 PM INSURANCE LOSS ADJUSTER Sexual Orientation Choose not to disclose 2020 3:46 PM CDT documented as of this encounter Miscellaneous Notes * Telephone Encounter - Lucy Stout, RKatalinaNKatalina, BMT-CN, O.C.N. - 07/10/2025 1:07 PM CDT Reason for call: Full body pain Transplant Type and Transplant Day (pre/post) Allo Onset: acute Location: Generalized and Jaw Intensity: 6 Duration: Acute Quality characteristics: aching Have you experienced this type of pain in the past? Yes;has reported this to RNCC Aggravating Factors: chewing Alleviating Factors: none Is the pain inhibiting your activity or mobility? Yes;patient is having difficulty with ADLs. Ability to eat, drink and take medications? No Other contributing information: Reports increased BM today approx 6 today small-medium size, loose-watery stools. 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 Patient was supposed to begin tapering prednisone from 40mg to 30 mg on 07/06, however she did not begin this taper. Patient has only taken one dose of PO hydromorphone. Recommendations/Coordination of Care Recommended to the patient: Instructed patient to seek emergency care if symptoms do not resolve/worsen. Notified Provider and 9 RNCC team. Continue current plan of care of PO hydromorphone every 6 hours. Monitor BMs for frequency, volume, and consistency. If BMs continue to worsen do NOT begin prednisone taper tomorrow, instead contact BMT team or seek local ED care. Take temperature and if afebrile take 1 dose of 1000 mg acetaminophen PO. Trial supportive measures of hot compresses, warm baths, gentle stretching. If febrile, advised patient to contact BMT team immediately due to increased risk for infection while on steroids (no current central line). If GI symptoms improve/resolve, steroid taper plan from note with updated dates is: 30 mg July 11-, 20 mg July 18-Jul 5, 10 mg until directed otherwise by BMT team. Telephone Triage for Oncology Nurses (Second Edition) pages 199-200 documented in this encounter Plan of Treatment Upcoming Encounters Date Type Department Care Team (Late st Contact Info) Description 07/21/2025 11:00 AM CDT Telemedicine Department of Palliative Care in [place], [place] [address] [place] [phone] Meghan Osorio M.D. [address] [place] [phone] 07/22/2025 8:40 AM CDT Lab Department of Laboratory Medicine and Pathology, [facility], in [place], [place] [address] [place] [phone] Becky Hernandez APRN, C.N.P., D.N.P. [address] [place] [phone] 07/22/2025 9:30 AM CDT Office Visit [facility] [place] [facility] [place] for Transplantation and Clinical Regeneration in [place], [place] [address] [place] [phone] Becky Hernandez APRN, C.N.P., D.N.P. [address] [place] [phone] 07/30/2025 2:00 PM CDT Appointment Division of Gastroenterology in [place], [place] [address] [place] [phone] Derrick Cruz Jr., M.D., M.S. [address] [place] [phone] 08/11/2025 9:00 AM CDT Nurse Only Section of Infectious Diseases in [place], [place] [address] [place] [phone] Jessica Rousseau M.B.B.S. [address] [place] [phone] 08/11/2025 1:00 PM CDT Clinical Support Department of Palliative Care in [place], [place] [address] [place] [phone] Uma Aly APRN, C.N.P., M.S.N. [address] [place] [phone] 08/13/2025 10:00 AM CDT Lab Department of Laboratory Medicine and Pathology, [facility], in [place], [place] [address] [place] [phone] Jessica Rousseau M.B.B.S. [address] [place] [address] 08/13/2025 10:30 AM CDT [facility] in [place], [place] [address] [place] [phone] Jessica Rousseau M.B.B.S. [address] [place] [phone] 08/13/2025 11:00 AM CDT Nurse Only [facility] Transplantation and Clinical Regeneration in [place], [place] [address] [place] [address] Jessica Rousseau M.B.B.S. [address] [place] [phone] 08/13/2025 11:30 AM CDT Office Visit [facility] in [place], [place] [address] [place] [address] Jessica Rousseau M.B.B.S. [address] [place] [phone] 09/25/2025 10:30 AM INSURANCE LOSS ADJUSTER Telemedicine [facility] Transplantation and Clinical Regeneration in [place], [place] [address] [place] [address] Jesisca Rousseau M.B.B.S. [address] [place] [phone] documented as of this encounter Visit Diagnoses Not on filedocumented in this encounter Additional Health Concerns Infection Onset Date Last Indicated Resolved Time Protective Environment 03/02/2023 03/02/2023 Assessment Noted Time PHQ-9 Depression Total Score: 12 025 9:42 AM CDT documented as of this encounter Care Teams Beauty Shop Manager Relationship Specialty Start Date End Date Renzo Andres M.D. [address] [place], [place] [address] [phone] PCP - General Family Medicine 04/25/23 documented as of this encounter
--- OUTSIDE RECORDS SUMMARY | 2025-07-19 18:13 | XMS_ITS | Encounter Summary ---
Author Organization [facility] Address [address] [place] [address] Care Team Providers Care Hull And Deck Remover Name Role Phone Renzo Andres M.D. Primary Care Provider [phone] Encounter Details Date Type Department Care Team (Late st Contact Info) Description 06/29/2025 Orders Only Pedro Nazario [facility] for Transplantation and Clinical Regeneration in [place], [place] [address] [place] [phone] Tara Marin R.N., BMT-CN [address] [place] [phone] Transplant Bone Marrow Allogeneic (HCC) (Primary Dx); [...] for daily living? No 07/02/2025 [facility] Utilities Answer Date Recorded In the past 12 months has e [employer], gas, oil, or water company threatened to shut off services in your home? No 07/02/2025 Depression Answer Date Recor ded PHQ-9 Total Score (max 27) 12 07/08 Housing Stability Answer Date Recorded What is your living situation today? I have a [facility] place to live 07/02/2025 Education Answer Date Recorded What is the highest level of school you have completed or the highest degree you have received? Some college, no degree 04/24/2019 Comments No Sex and Gender Information Value Date Recorded Sex Assigned at Female 12/26/2018 8:37 PM POT FIREMAN Legal Sex Female 2:43 PM POT FIREMAN Gender Identity Female 12/26/2018 8:37 PM POT FIREMAN Sexual Orientation Choose not to disclose 2020 3:46 PM CDT documented as of this encounter Plan of Treatment Upcoming Encounters Date Type Department Care Team (Late st Contact Info) Description 07/21/2025 11:00 AM CDT Telemedicine Department of Palliative Care in [place], [place] 200 [place] [address] Meghan Osorio M.D. 200 [place] [address] 07/22/2025 8:40 AM CDT Lab Department of Laboratory Medicine and Pathology, [facility], in [place], [place] [address] [place] [phone] Becky Hernandez APRN C.N.P., D.N.P. [address] [place] [phone] 07/22/2025 9:30 AM CDT Office Visit Pedro sanchez [facility] for Transplantation and Clinical Regeneration in [place], [place] [address] [place] [phone] Becky Hernandez APRN, C.N.P., D.N.P. [address] [place] [phone] 07/30/2025 2:00 PM CDT Appointment Division of Gastroenterology in [place], [place] [address] [place] [phone] Derrick Cruz Jr., M.D., M.S. [address] [place] [phone] 08/11/2025 9:00 AM CDT Nurse Only Section of Infectious Diseases in [place], [place] [address] [place] [phone] Jessica Rousseau M.B.B.S. [address] [place] [phone] 08/11/2025 1:00 PM CDT Clinical Support Department of Palliative Care in [place], [place] [address] [place] [phone] Uma Aly APRN, C.N.P., M.S.N. [address] [place] [phone] 08/13/2025 10:00 AM CDT Lab Department of Laboratory Medicine and Pathology, [facility], in [place], [place] [address] [place] [address] Jessica Rousseau M.B.B.S. [address] [place] [address] 08/13/2025 10:30 AM CDT [facility] in [place], [place] [address] [place] [address] Jessica Rousseau M.B.B.S. [address] [place] [phone] 08/13/2025 11:00 AM CDT [facility] in [place], [place] [address] [place] [address] Jesisca Rousseau M.B.B.S. [address] [place] [phone] 08/13/2025 11:30 AM CDT [facility] in [place], [place] [address] [place] [address] Jessica Rousseau M.B.B.S. [address] [place] [phone] 09/25/2025 10:30 AM POT FIREMAN Telemedicine [facility] in [place], [place] [address] [place] [address] Jessica Rousseau M.B.B.S. 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 [address] [place] [phone] PCP - General Family Medicine 04/25/23 documented as of this encounter
--- OUTSIDE RECORDS SUMMARY | 2025-07-19 18:13 | XMS_ITS | Encounter Summary ---
Author Organization [facility] Address [address] [place] [address] Care Team Providers Care Cleaner And Preparer Name Role Phone Renzo Andres M.D. Primary Care Provider [phone] Reason for Referral * MRI/CAT/PET Scan (Routine) - Closed Specialty Diagnoses / Procedures Referred By Contheidy t Referred To Contact Radiology Diagnoses Transplant Stem Cell (HCC) Transplant Bone Marrow Allogeneic (HCC) Procedures CT Abdomen Pelvis Enterography with IV Contrast CT Abdomen Pelvis Angiogram Enterography with IV Contrast Carlee Armas APRN, C.N.P., D.N.P., M.S.N. [address] [place] [address] Phone: tel: fax: [facility] Referral ID Status Reason Start Date Expiration Date Visits Re quested Visits Authorized [id number] Closed 06/27/2025 09/27/2026 1 1 CDT Encounter Details Date Type Department Care Team (Late st Contact Info) Description 06/27/2025 Orders Only [facility], [facility], Ninth Floor [address] [place] [address] Carlee Armas APRN, C.N.P., D.N.P., M.S.N. [address] [place] [address] Abdominal Pain (Primary Dx); Transplant Stem Cell [...] things needed for daily living? No 06/24/2025 [facility] Utilities Answer Date Recorded [...] Sex Assigned at Female 12/26/2018 8:37 PM SOLDERER ELECTRONIC Legal Sex Female 2:43 PM SOLDERER ELECTRONIC Gender Identity Female 12/26/2018 8:37 PM SOLDERER ELECTRONIC Sexual Orientation Choose not to disclose 2020 3:46 PM CDT documented as of this encounter Plan of Treatment Upcoming Encounters Date Type Department Care Team (Late st Contact Info) Description 07/21/2025 11:00 AM CDT Telemedicine Department of Palliative Care in [place], [place] [address] [place] [phone] Meghan Osorio M.D. [address] [place] [phone] 07/22/2025 8:40 AM CDT Lab Department of Laboratory Medicine and Pathology, [facility], in [place], [place] [address] [place] [phone] Becky Hernandez APRN, C.N.P., D.N.P. [address] [place] [phone] 07/22/2025 9:30 AM CDT [facility] in [place], [place] [address] [place] [phone] Becky Hernandez APRN, C.N.P., D.N.P. [address] [place] [phone] 07/30/2025 2:00 PM CDT Appointment Division of Gastroenterology in [place], [place] [address] [place] [phone] Derrick Cruz Jr., M.D., M.S. [address] [place] [address] 08/11/2025 9:00 AM CDT Nurse Only Section of Infectious Diseases in [place], [place] [address] [place] [address] Jessica Rousseau M.B.B.S. [address] [place] [phone] 08/11/2025 1:00 PM CDT Clinical Support Department of Palliative Care in [place], [place] [address] [place] [address] Uma Aly APRN, Satnam.N.P., M.S.N. [address] [place] [phone] 08/13/2025 10:00 AM CDT Lab Department of Laboratory Medicine and Pathology, [facility], in [place], [place] [address] [place] [address] Jessica Rousseau M.B.B.S. [address] [place] [phone] 08/13/2025 10:30 AM CDT Office Visit Pedro [facility] Transplantation and Clinical Regeneration in [place], [place] [address] [place] [address] Jessica Rousseau M.B.B.S. [address] [place] [phone] 08/13/2025 11:00 AM CDT Nurse Only [facility] in [place], [place] [address] [place] [address] Jessica Rousseau M.B.B.S. [address] [place] [address] 08/13/2025 11:30 AM CDT Office Visit Pedro Nazario [facility] Transplantation and Clinical Regeneration in [place], [place] [address] [place] [address] Jessica Rousseau M.B.B.S. [address] [place] [phone] 09/25/2025 10:30 AM SOLDERER ELECTRONIC Telemedicine [facility] Transplantation and Clinical Regeneration in [place], [place] [address] [place] [address] Jessica Rousseau M.B.B.S. [address] [place] [phone] documented as of this encounter Results * [...] without recurrence of the marked splenomegaly seen [id number]. No suspicious lymphadenopathy within the abdomen or [...] Total Score: 2 12/10/19 25 2:46 PM SOLDERER ELECTRONIC documented as of this encounter Care Teams Cleaner And Preparer Relationship Specialty Start Date End Date Renzo Andres M.D. [address] [place] [address] [place] [address] PCP - General Family Medicine 04/25/23 documented as of this encounter
--- OUTSIDE RECORDS SUMMARY | 2025-07-19 18:13 | XMS_ITS | Encounter Summary ---
Author Organization [facility] Address [address] [place] [address] Care Team Providers Care Knuckle Strap Sewer Name Role Phone Renzo Andres M.D. Primary Care Provider Reason for Visit * Reason Onset Date Comments Lab Monitoring 06/08/2025 Encounter Details Date Type Department Care Team (Latest Contact Info) Description 06/08/2025 Clinical Communication [facility] in [place], [place] [address] [place] [address] Jessica Rousseau M.B.B.S. [address] [place] [address] Lab Monitoring Social History Tobacco Use Types Packs/Day Years Used Date Smoking Tobacco: Never Smokeless Tobacco: Never Alcohol Use Standard Drinks/Week Comments Yes 0 (1 standard drink = 0.6 oz pur e alcohol) social [facility] Utilities [...] a [facility] to live 05/28/2025 Education Answer Date Recorded What is the highest level of school you have completed or the highest degree you have received? Some college, no degree 04/24/2019 Comments No Sex and Gender Information Value Date Recorded Sex Assigned at Female 12/26/2018 8:37 PM MEMORY CARE DIRECTOR Legal Sex Female 2:43 PM MEMORY CARE DIRECTOR Gender Identity Female 12/26/2018 8:37 PM MEMORY CARE DIRECTOR Sexual Orientation Choose not to disclose [...] CDT Telemedicine Department of Palliative Care in [place], [place] [address] [place] [phone] Meghan Osorio M.D. [address] [place] [phone] 07/22/2025 8:40 AM CDT Lab Department of Laboratory Medicine and Pathology, [facility], in [place], [place] [address] [place] [address] Becky Hernandez APRN, C.N.P., D.N.P. [address] [place] [phone] 07/22/2025 9:30 AM CDT Office Visit Pedro Aravind sanchez [facility] for Transplantation and Clinical Regeneration in [place], [place] [address] [place] [address] Becky Hernandez APRN, C.N.P., D.N.P. [address] [place] [phone] 07/30/2025 2:00 PM CDT Appointment Division of Gastroenterology in [place], [place] [address] [place] [phone] Derrick Cruz Jr., M.D., M.S. [address] [place] [phone] 08/11/2025 9:00 AM CDT Nurse Only Section of Infectious Diseases in [place], [place] [address] [place] [address] Jessica Rousseau M.B.B.S. [address] [place] [phone] 08/11/2025 1:00 PM CDT Clinical Support Department of Palliative Care in [place], [place] [address] [place] [phone] Uma Aly APRN, C.NLuigi., M.S.N. [address] [place] [phone] 08/13/2025 10:00 AM CDT Lab Department of Laboratory Medicine and Pathology, [facility], in [place], [place] [address] [place] [address] Jessica Rousseau M.B.B.S. [address] [place] [phone] 08/13/2025 10:30 AM CDT [facility] in [place], [place] [address] [place] [address] Jessica Rousseau M.B.B.S. [address] [place] [address] 08/13/2025 11:00 AM CDT [facility] in [place], [place] [address] [place] [address] Jessica Rousseau M.B.B.S. [address] [place] [phone] 08/13/2025 11:30 AM CDT Office Visit Pedro Lanza laura [facility] Transplantation and Clinical Regeneration in [place], [place] [address] [place] [address] Jessica Rousseau M.B.B.S. [address] [place] [phone] 09/25/2025 10:30 AM MEMORY CARE DIRECTOR Telemedicine [facility] [place] Transplantation and Clinical Regeneration in [place], [place] [address] [place] [address] Jessica Rousseau M.B.B.S. [address] [place] [phone] documented as of this encounter Visit Diagnoses [...] Total Score: 2 12/10/19 25 2:46 PM MEMORY CARE DIRECTOR documented as of this encounter Care Teams Knuckle Strap Sewer Relationship Specialty Start Date End Date Renzo Andres M.D. [address] [place] [address] [place] [address] PCP - General Family Medicine 04/25/23 documented as of this encounter
--- OUTSIDE RECORDS SUMMARY | 2025-07-19 18:13 | XMS_ITS | Encounter Summary ---
Author Organization [facility] Address [address] [place] [address] Care Team Providers Care Lang Path Therapist Name Role Phone Renzo Andres M.D. Primary Care Provider Encounter Details Date Type Department Care Team (Late st Contact Info) Description 06/29/[address] [facility], Ninth Floor [address] [place] [phone] Antonina Paul V., RKatalinaNKatalina Social History Tobacco [...] things needed for daily living? No 06/24/2025 [facility] Utilities Answer Date Recorded In the past 12 months has th e electric, gas, oil, or water company threatened to shut off services in your home? No 06/24/2025 Depression Answer Date Recor ded PHQ-9 Total Score (max 27) 2 12/10 Housing Stability Answer Date Recorded What is your living situation today? I have a [facility] place to live 06/24/2025 Education Answer Date Recorded What is the highest level of school you have completed or the highest degree you have received? Some college, no degree 04/24/2019 Comments No Sex and Gender Information Value Date Recorded Sex Assigned at Female 12/26/2018 8:37 PM COSMETOLOGY INSTRUCTOR Legal Sex Female 2:43 PM COSMETOLOGY INSTRUCTOR Gender Identity Female 12/26/2018 8:37 PM COSMETOLOGY INSTRUCTOR Sexual Orientation Choose not to disclose 2020 [...] CDT Telemedicine Department of Palliative Care in [place], [place] [address] [place] [phone] Meghan Osorio M.D. [address] [place] [phone] 07/22/2025 8:40 AM CDT Lab Department of Laboratory Medicine and Pathology, [facility], in [place], [place] [address] [place] [phone] Becky Hernandez APRN, C.N.P., D.N.P. [address] [place] [phone] 07/22/2025 9:30 AM CDT Office Visit Pedro Aravind [facility] for Transplantation and Clinical Regeneration in [place], [place] [address] [place] [address] Becky Hernandez APRN, C.N.P., D.N.P. [address] [place] [phone] 07/30/2025 2:00 PM CDT Appointment Division of Gastroenterology in [place], [place] [address] [place] [phone] Derrick Cruz Jr., M.D., M.S. [address] [place] [phone] 08/11/2025 9:00 AM CDT Nurse Only Section of Infectious Diseases in [place], [place] [address] [place] [address] Jessica Rousseau M.B.B.S. [address] [place] [phone] 08/11/2025 1:00 PM CDT Clinical Support Department of Palliative Care in [place], [place] [address] [place] [address] Uma Aly APRN, C.N.P., M.S.N. [address] [place] [phone] 08/13/2025 10:00 AM CDT Lab Department of Laboratory Medicine and Pathology, [facility], in [place], [place] [address] [place] [address] Jessica Rousseau M.B.B.S. [address] [place] [phone] 08/13/2025 10:30 AM CDT [facility] in [place], [place] [address] [place] [address] Jessica Rousseau M.B.B.S. [address] [place] [phone] 08/13/2025 11:00 AM CDT [facility] in [place], [place] [address] [place] [address] Jessica Rousseau M.B.B.S. [address] [place] [phone] 08/13/2025 11:30 AM CDT [facility] in [place], [place] [address] [place] [address] Jessica Rousseau M.B.B.S. [address] [place] [phone] 09/25/2025 10:30 AM COSMETOLOGY INSTRUCTOR Telemedicine Pedro Nazario [facility] for Transplantation and Clinical Regeneration in [place], [place] [address] [place] [address] Jessica Rousseau M.B.BKatalinaS. [address] [place] [address] documented as of this encounter Visit Diagnoses Not on filedocumented in this encounter Additional Health Concerns Infection Onset Date Last Indicated Resolved Time Protective Environment 03/02/2023 03/02/2023 Assessment Noted Time PHQ-9 Depression Total Score: 2 12/10/19 25 2:46 PM COSMETOLOGY INSTRUCTOR documented as of this encounter Care Teams Lang Path Therapist Relationship Specialty Start Date End Date Renzo Andres M.D. [address] [place] [phone] PCP - General Family Medicine 04/25/23 documented as of this encounter
--- OUTSIDE RECORDS SUMMARY | 2025-07-19 18:14 | XMS_ITS | Encounter Summary ---
Author Organization [facility] Address [address] [place] [address] Care Team Providers Care Protection Manager Name Role Phone Renzo Andres M.D. Primary Care Provider Encounter Details Date Type Department Care Team (Latest Contact Info) Description 06/22/2025 Results Follow-Up [facility] for Transplantation and Clinical Regeneration in [place], [place] [address] [place] [phone] Jessica Rousseau M.B.B.S. [address] [place] [phone] BCR/ABL1, p210, mRNA Detection, Reverse Land Inspector-PCR (RT-PCR), Quantitative, Monitoring Chronic Myeloid Leukemia (CML) [...] needed for daily living? No 06/24/2025 [facility] Utilities Answer Date Recorded In the past 12 months has th e electric, gas, oil, or water company threatened to shut off services in your home? No 06/24/2025 Depression Answer Date Recor ded PHQ-9 Total Score (max 27) 2 12/10 Housing Stability Answer Date Recorded What is your living situation today? I have a [facility] place to live 06/24/2025 Education Answer Date Recorded What is the highest level of school you have completed or the highest degree you have received? Some college, no degree 04/24/2019 Comments No Sex and Gender Information Value Date Recorded Sex Assigned at Female 12/26/2018 8:37 PM MANAGER CARDIOLOGY Legal Sex Female 2:43 PM MANAGER CARDIOLOGY Gender Identity Female 12/26/2018 8:37 PM MANAGER CARDIOLOGY Sexual Orientation Choose not to disclose 2020 3:46 PM CDT documented as of this encounter Plan of Treatment Upcoming Encounters Date Type Department Care Team (Late st Contact Info) Description 07/21/2025 11:00 AM CDT Telemedicine Department of Palliative Care in [place], [place] [address] [place] [address] Meghan Osorio M.D. [address] [place] [phone] 07/22/2025 8:40 AM CDT Lab Department of Laboratory Medicine and Pathology, [facility], in [place], [place] [address] [place] [phone] Becky Hernandez APRN C.N.P., D.N.P. [address] [place] [phone] 07/22/2025 9:30 AM CDT Office Visit Pedro Aravind [facility] for Transplantation and Clinical Regeneration in [place], [place] [address] [place] [phone] Becky Hernandez APRN, C.N.P., D.N.P. [address] [place] [phone] 07/30/2025 2:00 PM CDT Appointment Division of Gastroenterology in [place], [place] [address] [place] [phone] Derrick Cruz Jr., M.D., M.S. [address] [place] [phone] 08/11/2025 9:00 AM CDT Nurse Only Section of Infectious Diseases in [place], [place] [address] [place] [phone] Jessica Rousseau M.B.B.S. [address] [place] [phone] 08/11/2025 1:00 PM CDT Clinical Support Department of Palliative Care in [place], [place] [address] [place] [phone] Uma Aly APRN, C.N.P., M.S.N. [address] [place] [phone] 08/13/2025 10:00 AM CDT Lab Department of Laboratory Medicine and Pathology, [facility], in [place], [place] [address] [place] [address] Jessica Rousseau M.B.B.S. [address] [place] [address] 08/13/2025 10:30 AM CDT [facility] in [place], [place] [address] [place] [address] Jessica Rousseau M.B.B.S. [address] [place] [phone] 08/13/2025 11:00 AM CDT Nurse [facility] in [place], [place] [address] [place] [address] Jessica Rousseau M.B.B.S. [address] [place] [phone] 08/13/2025 11:30 AM CDT [facility] in [place], [place] [address] [place] [address] Jessica Rousseau M.B.B.S. [address] [place] [address] 09/25/2025 10:30 AM MANAGER CARDIOLOGY Telemedicine Pedro sanchez [facility] for Transplantation and Clinical Regeneration in [place], [place] [address] [place] [address] Jessica Rousseau M.B.B.S. [address] [place] [phone] documented as of this encounter Visit Diagnoses Not on filedocumented in this encounter Additional Health Concerns Infection Onset Date Last Indicated Resolved Time Protective Environment 03/02/2023 03/02/2023 Assessment Noted Time PHQ-9 Depression Total Score: 2 12/10/19 25 2:46 PM MANAGER CARDIOLOGY documented as of this encounter Care Teams Protection Manager Relationship Specialty Start Date End Date Renzo Andres M.D. NPAmanda: [phone] [address] [place] [phone] PCP - General Family Medicine 04/25/23 documented as of this encounter
--- OUTSIDE RECORDS SUMMARY | 2025-07-19 18:14 | XMS_ITS | Encounter Summary ---
Author Organization [facility] Address [address] [place] [address] Care Team Providers Care Baker Operator Automatic Name Role Phone Renzo Andres M.D. Primary Care Provider Reason for Visit * Reason Onset Date Comments Vomiting 06/24/2025 vomiting and abdominal pain 06/24/2025 Encounter Details Date Type Department Care Team (Latest Contact Info) Description 06/24/2025 Clinical Communication Pedro Fatima [facility] for Transplantation and Clinical Regeneration in [place], [place] [address] [place] [address] Jessica Rousseau M.B.B.S. [address] [place] [phone] Vomiting; vomiting and abdominal pain Social History [...] Sex Assigned at Female 12/26/2018 8:37 PM SURGICAL APPLIANCES SALESPERSON Legal Sex Female 2:43 PM SURGICAL APPLIANCES SALESPERSON Gender Identity Female 12/26/2018 8:37 PM SURGICAL APPLIANCES SALESPERSON Sexual Orientation Choose not to disclose 2020 [...] * Telephone Encounter - Monica Napier R.N., [facility] - 06/24/2025 10:41 AM CDT SUBJECTIVE CHIEF [...] * Telephone Encounter - Monica Napier R.N., [facility] - 06/24/2025 9:18 AM CDT SUBJECTIVE CHIEF [...] CDT Telemedicine Department of Palliative Care in [place], [place] [address] [place] [address] eMghan Osorio M.D. [address] [place] [phone] 07/22/2025 8:40 AM CDT Lab Department of Laboratory Medicine and Pathology, [facility] in [place], [place] [address] [place] [address] Becky Hernandez APRN, C.N.P., D.N.P. [address] [place] [phone] 07/22/2025 9:30 AM CDT Office Visit Pedro sanchez [facility] for Transplantation and Clinical Regeneration in [place], [place] [address] [place] [address] Becky Hernandez APRN, C.N.P., D.N.P. [address] [place] [phone] 07/30/2025 2:00 PM CDT Appointment Division of Gastroenterology in [place], [place] [address] [place] [phone] Derrick Cruz Jr., M.D., M.S. [address] [place] [phone] 08/11/2025 9:00 AM CDT Nurse Only Section of Infectious Diseases in [place], [place] [address] [place] [address] Jessica Rousseau M.B.B.S. [address] [place] [phone] 08/11/2025 1:00 PM CDT Clinical Support Department of Palliative Care in [place], [place] [address] [place] [address] Uma Aly APRN, C.N.P., M.S.N. [address] [place] [phone] 08/13/2025 10:00 AM CDT Lab Department of Laboratory Medicine and Pathology, [facility] in [place], [place] [address] [place] [address] Jessica Rousseau M.B.B.S. [address] [place] [phone] 08/13/2025 10:30 AM CDT [facility] in [place], [place] [address] [place] [address] Jessica Rousseau M.B.B.S. [address] [place] [phone] 08/13/2025 11:00 AM CDT Nurse Only [facility] in [place], [place] [address] [place] [address] Jessica Rousseau M.B.B.S. [address] [place] [phone] 08/13/2025 11:30 AM CDT [facility] in [place], [place] [address] [place] [address] Jessica Rousseau M.B.B.S. [address] [place] [address] 09/25/2025 10:30 AM SURGICAL APPLIANCES SALESPERSON Telemedicine Pedro Aravind [facility] for Transplantation and Clinical Regeneration in [place], [place] [address] [place] [address] Jessica Rousseau M.B.B.S. [address] [place] [address] documented as of this encounter Visit Diagnoses Not on filedocumented in this encounter Additional Health Concerns Infection Onset Date Last Indicated Resolved Time Protective Environment 03/02/2023 03/02/2023 Assessment Noted Time PHQ-9 Depression Total Score: 2 12/10/19 25 2:46 PM SURGICAL APPLIANCES SALESPERSON documented as of this encounter Care Teams Baker Operator Automatic Relationship Specialty Start Date End Date Renzo Andres M.D. [address] [place] [phone] PCP - General Family Medicine 04/25/23 documented as of this encounter
--- OUTSIDE RECORDS SUMMARY | 2025-07-19 18:14 | XMS_ITS | Encounter Summary ---
Author Organization [facility] Address [address] [place] [address] Care Team Providers Care Top Precipitator Operator Name Role Phone Renzo Andres M.D. Primary Care Provider [phone] Reason for Visit * Reason Onset Date Comments Phone Contact 06/22/2025 Nausea and abdom inal pain Encounter Details Date Type Department Care Team (Latest Contact Info) Description 06/22/2025 Clinical Communication [facility] in [place], [place] [address] [place] [address] Jessica Rousseau M.B.B.S. [address] [place] [phone] Phone Contact (Nausea and abdominal pain) Social [...] needed for daily living? No 06/24/2025 [facility] Utilities Answer Date Recorded In the past 12 months has th e electric, gas, oil, or water [employer] threatened to shut off services in your home? No 06/24/2025 Depression Answer Date Recor ded PHQ-9 Total Score (max 27) 2 12/10 Housing Stability Answer Date Recorded What is your living situation today? I have a [facility] place to live 06/24/2025 Education Answer Date Recorded What is the highest level of school you have completed or the highest degree you have received? Some college, no degree 04/24/2019 Comments No Sex and Gender Information Value Date Recorded Sex Assigned at Female 12/26/2018 8:37 PM SAMPLE CASE PORTER Legal Sex Female 2:43 PM SAMPLE CASE PORTER Gender Identity Female 12/26/2018 8:37 PM SAMPLE CASE PORTER Sexual Orientation Choose not to disclose 2020 [...] CDT Telemedicine Department of Palliative Care in [place], [place] [address] [place] [phone] Meghan Osorio M.D. [address] [place] [phone] 07/22/2025 8:40 AM CDT Lab Department of Laboratory Medicine and Pathology, [facility], in [place], [place] [address] [place] [phone] Becky Hernandez APRN, C.N.P., D.N.P. [address] [place] [phone] 07/22/2025 9:30 AM CDT Office Visit Pedro Aravind [facility] for Transplantation and Clinical Regeneration in [place], [place] [address] [place] [phone] Becky Hernandez APRN, C.N.P., D.N.P. [address] [place] [phone] 07/30/2025 2:00 PM CDT Appointment Division of Gastroenterology in [place], [place] [address] [place] [phone] Derrick Cruz Jr., M.D., M.S. [address] [place] [phone] 08/11/2025 9:00 AM CDT Nurse Only Section of Infectious Diseases in [place], [place] [address] [place] [phone] Jessica Rousseau M.B.B.S. [address] [place] [phone] 08/11/2025 1:00 PM CDT Clinical Support Department of Palliative Care in [place], [place] [address] [place] [address] Uma Aly APRN, C.N.P., M.S.N. [address] [place] [address] 08/13/2025 10:00 AM CDT Lab Department of Laboratory Medicine and Pathology, [facility], in [place], [place] [address] [place] [address] Jessica Rousseau M.B.B.S. [address] [place] [phone] 08/13/2025 10:30 AM CDT [facility] in [place], [place] [address] [place] [address] Jessica Rousseau M.B.B.S. [address] [place] [phone] 08/13/2025 11:00 AM CDT Nurse Only Pedro Lanza [facility] for Transplantation and Clinical Regeneration in [place], [place] [address] [place] [address] Jessica Rousseau M.B.B.S. [address] [place] [phone] 08/13/2025 11:30 AM CDT [facility] Clinical [facility]eneration in [place], [place] [address] [place] [address] Jessica Rousseau M.B.B.S. [address] [place] [phone] 09/25/2025 10:30 AM SAMPLE CASE PORTER Telemedicine [facility] in [place], [place] [address] [place] [address] Jessica Rousseau M.B.B.S. [address] [place] [address] documented as of this encounter Visit Diagnoses Not on filedocumented in this encounter Additional Health Concerns Infection Onset Date Last Indicated Resolved Time Protective Environment 03/02/2023 03/02/2023 Assessment Noted Time PHQ-9 Depression Total Score: 2 12/10/19 25 2:46 PM SAMPLE CASE PORTER documented as of this encounter Care Teams Top Precipitator Operator Relationship Specialty Start Date End Date Renzo Andres M.D. [address] [place] [phone] PCP - General Family Medicine 04/25/23 documented as of this encounter
--- OUTSIDE RECORDS SUMMARY | 2025-07-19 18:14 | XMS_ITS | Encounter Summary ---
Author Organization [facility] Address [address] [place] [address] Care Team Providers Care Tape Stringer Name Role Phone Renzo Andres M.D. Primary Care Provider [phone] Reason for Referral * Outpatient (Routine) - Authorized Specialty Diagnoses / Procedures Referred By Contheidy t Referred To Contact Renzo Andres M.D. [address] [place] [address] Phone: tel: fax: [facility] Region Referral ID Status Reason Start Date Expiration Date V isits Requested Visits Authorized [id number] Authorized 06/23/2025 12/23/2026 1 1 Scheduling Instructions Nurse AWV Do not schedule prior to due date to ensure insurance coverage Visit: Medicare Annual Wellness Never done. Encounter Details Date Type Department Care Team (Late st Contact Info) Description 06/23/2025 Orders Only [facility] PCP TH MNT Renzo Andres M.D. [address] [place] [address] Social History Tobacco Use Types [...] things needed for daily living? No 06/24/2025 [facility] Utilities Answer Date Recorded In the past 12 months has e [employer], gas, oil, or water [employer] threatened to shut off services in your home? No 06/24/2025 Depression Answer Date Recor ded PHQ-9 Total Score (max 27) 2 12/10 Housing Stability Answer Date Recorded What is your living situation today? I have a [facility] place to live 06/24/2025 Education Answer Date Recorded What is the highest level of school you have completed or the highest degree you have received? Some college, no degree 04/24/2019 Comments No Sex and Gender Information Value Date Recorded Sex Assigned at Female 12/26/2018 8:37 PM BIOMASS TECHNICIAN Legal Sex Female 2:43 PM BIOMASS TECHNICIAN Gender Identity Female 12/26/2018 8:37 PM BIOMASS TECHNICIAN Sexual Orientation Choose not to disclose 2020 3:46 PM CDT documented as of this encounter Plan of Treatment Upcoming Encounters Date Type Department Care Team (Late st Contact Info) Description 07/21/2025 11:00 AM CDT Telemedicine Department of Palliative Care in [place], [place] [address] [place] [phone] Meghan Osorio M.D. [address] [place] [address] [phone] 07/22/2025 8:40 AM CDT Lab Department of Laboratory Medicine and Pathology, [facility], in [place], [place] [address] [place] [phone] Becky Hernandez APRN, C.N.P., D.N.P. [address] [place] [address] [phone] 07/22/2025 9:30 AM CDT Office Visit Pedro Aravind [facility] for Transplantation and Clinical Regeneration in [place], [place] [address] [place] [phone] Becky Hernandez APRN, C.N.P., D.N.P. [address] [place] [phone] 07/30/2025 2:00 PM CDT Appointment Division of Gastroenterology in [place], [place] [address] [place] [address] [phone] Derrick Cruz Jr., M.D., M.S. [address] [place] [address] [phone] 08/11/2025 9:00 AM CDT Nurse Only Section of Infectious Diseases in [place], [place] [address] [place] [address] [phone] Jessica Rousseau M.B.B.S. [address] [place] [phone] 08/11/2025 1:00 PM CDT Clinical Support Department of Palliative Care in [place], [place] [address] [place] [address] Uma Aly APRN, JamariNLuigi., M.S.N. [address] [place] [phone] 08/13/2025 10:00 AM CDT Lab Department of Laboratory Medicine and Pathology, [facility], in [place], [place] [address] [place] [phone] Jessica Rousseau M.B.B.S. [address] [place] [phone] 08/13/2025 10:30 AM CDT [facility] in [place], [place] [address] [place] [address] Jessica Rousseau M.B.B.S. [address] [place] [phone] 08/13/2025 11:00 AM CDT Nurse Only [facility] in [place], [place] [address] [place] [address] Jessica Rousseau M.B.B.S. [address] [place] [phone] 08/13/2025 11:30 AM CDT Office [facility] in [place], [place] [address] [place] [address] Jessica Rousseau M.B.B.S. [address] [place] [phone] 09/25/2025 10:30 AM BIOMASS TECHNICIAN Telemedicine [facility] in [place], [place] [address] [place] [address] Jessica Rousseau M.B.B.S. [address] [place] [address] Scheduled Referrals Name Type Priority Associated Diagnoses Orde r Schedule Primary Care nurse visit (clinic) - [facility] Region; Medicare Annual Wellness Outpatient Referral Routine Expected: 07/21/2025, Expires: 12/10/2025 documented as of this encounter Visit Diagnoses Not on filedocumented in this encounter Additional Health Concerns Infection Onset Date Last Indicated Resolved Time Protective Environment 03/02/2023 03/02/2023 Assessment Noted Time PHQ-9 Depression Total Score: 2 12/10/19 25 2:46 PM BIOMASS TECHNICIAN documented as of this encounter Care Teams Tape Stringer Relationship Specialty Start Date End Date Renzo Andres M.D. [address] [place] [phone] PCP - General Family Medicine 04/25/23 documented as of this encounter
--- OUTSIDE RECORDS SUMMARY | 2025-07-19 18:14 | XMS_ITS | Encounter Summary ---
Author Organization [facility] Address [address] [place] [address] Care Team Providers Care Crude Oil Treater Name Role Phone Renzo Andres M.D. Primary Care Provider Reason for Visit * Reason Onset Date Comments Phone Contact 06/18/2025 Encounter Details Date Type Department Care Team (Latest Contact Info) Description 06/18/2025 Clinical Communication [facility] in [place], [place] [address] [place] [address] Osiris Bass R.N., BMT-CN [address] [place] [address] Phone Contact Social History Tobacco Use Types [...] for daily living? No 07/02/2025 [facility] Utilities Answer Date Recorded In the past 12 months has th e [employer], gas, oil, or water company threatened to shut off services in your home? No 07/02/2025 Depression Answer Date Recor ded PHQ-9 Total Score (max 27) 12 07/08 Housing Stability Answer Date Recorded What is your living situation today? I have a [facility] place to live 07/02/2025 Education Answer Date Recorded What is the highest level of school you have completed or the highest degree you have received? Some college, no degree 04/24/2019 Comments No Sex and Gender Information Value Date Recorded Sex Assigned at Female 12/26/2018 8:37 PM SPRAYER HAND Legal Sex Female 2:43 PM SPRAYER HAND Gender Identity Female 12/26/2018 8:37 PM SPRAYER HAND Sexual Orientation Choose not to disclose 2020 3:46 PM CDT documented as of this encounter Plan of Treatment Upcoming Encounters Date Type Department Care Team (Late st Contact Info) Description 07/21/2025 11:00 AM CDT Telemedicine Department of Palliative Care in [place], [place] 200 [place] [address] Meghan Osorio M.D. 200 [place] [address] 07/22/2025 8:40 AM CDT Lab Department of Laboratory Medicine and Pathology, [facility], in [place], [place] [address] [place] [address] Becky Hernandez APRN, C.N.P., D.N.P. [address] [place] [phone] 07/22/2025 9:30 AM CDT Office Visit [facility] for Transplantation and Clinical Regeneration in [place], [place] [address] [place] [address] eBcky Hernandez APRN, C.N.P., D.N.P. [address] [place] [phone] 07/30/2025 2:00 PM CDT Appointment Division of Gastroenterology in [place], [place] [address] [place] [phone] Derrick Cruz Jr., M.D., M.S. [address] [place] [phone] 08/11/2025 9:00 AM CDT Nurse Only Section of Infectious Diseases in [place], [place] [address] [place] [phone] Jessica Rousseau M.B.B.S. [address] [place] [phone] 08/11/2025 1:00 PM CDT Clinical Support Department of Palliative Care in [place], [place] [address] [place] [place] [phone] Uma Aly APRN C.N.P., M.S.N. [address] [place] [phone] 08/13/2025 10:00 AM CDT Lab Department of Laboratory Medicine and Pathology, [facility], in [place], [place] [address] [place] [address] Jessica Rousseau M.B.B.S. [address] [place] [phone] 08/13/2025 10:30 AM CDT Office [facility] in [place], [place] [address] [place] [address] Jessica Rousseau M.B.B.S. [address] [place] [phone] 08/13/2025 11:00 AM CDT Nurse Only [facility] in [place], [place] [address] [place] [address] Jessica Rousseau M.B.B.S. [address] [place] [phone] 08/13/2025 11:30 AM CDT Office [facility] in [place], [place] [address] [place] [address] Jessica Rousseau M.B.B.S. [address] [place] [phone] 09/25/2025 10:30 AM SPRAYER HAND Telemedicine [facility] in [place], [place] [address] [place] [address] Jessica Rousseau M.B.B.S. [address] [place] [phone] documented as of this encounter Visit Diagnoses Not on filedocumented in this encounter Additional Health Concerns Infection Onset Date Last Indicated Resolved Time Protective Environment 03/02/2023 03/02/2023 Assessment Noted Time PHQ-9 Depression Total Score: 2 12/10/19 25 2:46 PM SPRAYER HAND documented as of this encounter Care Teams Crude Oil Treater Relationship Specialty Start Date End Date Renzo Andres M.D. [address] [place] [address] [place] [phone] PCP - General Family Medicine 04/25/23 documented as of this encounter
--- OUTSIDE RECORDS SUMMARY | 2025-07-19 18:14 | XMS_ITS | Encounter Summary ---
Author Organization [facility] Address [address] [place] [address] Care Team Providers Care Supervisor Payroll Name Role Phone Renzo Andres M.D. Primary Care Provider Encounter Details Date Type Department Care Team (Latest Contact Info) Description 06/23/2025 Clinical Communication Pedro Nazario [facility] for Transplantation and Clinical Regeneration in [place], [place] [address] [place] [phone] Jessica Rousseau M.B.B.S. [address] [place] [address] Social History Tobacco Use Types Packs/Day Years [...] things needed for daily living? No 06/24/2025 [facility] Utilities Answer Date Recorded In the past 12 months has th e electric, gas, oil, or water company threatened to shut off services in your home? No 06/24/2025 Depression Answer Date Recor ded PHQ-9 Total Score (max 27) 2 12/10 Housing Stability Answer Date Recorded What is your living situation today? I have a [facility] place to live 06/24/2025 Education Answer Date Recorded What is the highest level of school you have completed or the highest degree you have received? Some college, no degree 04/24/2019 Comments No Sex and Gender Information Value Date Recorded Sex Assigned at Female 12/26/2018 8:37 PM ALGEBRA TUTOR Legal Sex Female 2:43 PM ALGEBRA TUTOR Gender Identity Female 12/26/2018 8:37 PM ALGEBRA TUTOR Sexual Orientation Choose not to disclose 2020 3:46 PM CDT documented as of this encounter Plan of Treatment Upcoming Encounters Date Type Department Care Team (Late st Contact Info) Description 07/21/2025 11:00 AM CDT Telemedicine Department of Palliative Care in [place], [place] 200 [place] [address] Meghan Osorio M.D. 200 [place] [address] 07/22/2025 8:40 AM CDT Lab Department of Laboratory Medicine and Pathology, [facility], in [place], [place] [address] [place] [address] Becky Hernandez APRN, C.N.PKatalina, D.N.P. [address] [place] [phone] 07/22/2025 9:30 AM CDT Office Visit [facility] Aravind [facility] for Transplantation and Clinical Regeneration in [place], [place] [address] [place] [address] Becky Hernandez APRN, C.N.Jean., D.N.P. [address] [place] [phone] 07/30/2025 2:00 PM CDT Appointment Division of Gastroenterology in [place], [place] [address] [place] [phone] Derrick Cruz Jr., M.D., M.S. [address] [place] [phone] 08/11/2025 9:00 AM CDT Nurse Only Section of Infectious Diseases in [place], [place] [address] [place] [phone] Jessica Rousseau M.B.B.S. [address] [place] [phone] 08/11/2025 1:00 PM CDT Clinical Support Department of Palliative Care in [place], [place] [address] [place] [phone] Uma Aly APRN, C.N.P., M.S.N. [address] [place] [phone] 08/13/2025 10:00 AM CDT Lab Department of Laboratory Medicine and Pathology, [facility], in [place], [place] [address] [place] [address] Jessica Rousseau M.B.B.S. [address] [place] [phone] 08/13/2025 10:30 AM CDT Office [facility] in [place], [place] [address] [place] [address] Jessica Rousseau M.B.B.S. [address] [place] [phone] 08/13/2025 11:00 AM CDT Nurse Only [facility] in [place], [place] [address] [place] [address] Jessica Rousseau M.B.B.S. [address] [place] [phone] 08/13/2025 11:30 AM CDT Office [facility] in [place], [place] [address] [place] [address] Jessica Rousseau M.B.B.S. [address] [place] [phone] 09/25/2025 10:30 AM ALGEBRA TUTOR Telemedicine Pedro Lanza [facility] in [place], [place] [address] [place] [address] Jessica Rousseau M.B.B.S. [address] [place] [phone] documented as of this encounter Visit Diagnoses Not on filedocumented in this encounter Additional Health Concerns Infection Onset Date Last Indicated Resolved Time Protective Environment 03/02/2023 03/02/2023 Assessment Noted Time PHQ-9 Depression Total Score: 2 12/10/19 25 2:46 PM ALGEBRA TUTOR documented as of this encounter Care Teams Supervisor Payroll Relationship Specialty Start Date End Date Renzo Andres M.D. [address] [place] [phone] PCP - General Family Medicine 04/25/23 documented as of this encounter
--- OUTSIDE RECORDS SUMMARY | 2025-07-19 18:14 | XMS_ITS | Encounter Summary ---
Author Organization [facility] Address [address] [place] [address] Care Team Providers Care Chemical Librarian Name Role Phone Renzo Andres M.D. Primary Care Provider Reason for Referral * Specialty Diagnoses / Procedures Referred By Estefania acosta Referred To Contact Diagnoses Transplant Stem Cell (HCC) [facility] [address] [place] [address] Phone: tel: [facility] Referral ID Status Reason Start Date Expiration Date Visits Re quested Visits Authorized Encounter Details Date Type Department Care Team (Late st Contact Info) Description 06/22/2025 Orders Only [facility], [facility], Ninth Floor [address] [place] [phone] Vikki Duarte, RKatalinaNKatalina [address] [place] [address] Transplant Stem Cell (HCC) (Primary [...] Recorded In the past 12 months has [facility] electric, gas, oil, or water company threatened to shut off services in your home? No 07/02/2025 Depression Answer Date Recor ded PHQ-9 Total Score (max 27) 12 07/08 Housing Stability Answer Date Recorded What is your living situation today? I have a [facility] place to live 07/02/2025 Education Answer Date Recorded What is the highest level of school you have completed or the highest degree you have received? Some college, no degree 04/24/2019 Comments No Sex and Gender Information Value Date Recorded Sex Assigned at Female 12/26/2018 8:37 PM REGISTERED PHARMACIST Legal Sex Female 2:43 PM REGISTERED PHARMACIST Gender Identity Female 12/26/2018 8:37 PM REGISTERED PHARMACIST Sexual Orientation Choose not to disclose 2020 3:46 PM CDT documented as of this encounter Plan of Treatment Upcoming Encounters Date Type Department Care Team (Late st Contact Info) Description 07/21/2025 11:00 AM CDT Telemedicine Department of Palliative Care in [place], [place] [address] [place] [phone] Meghan Osorio M.D. [address] [place] [phone] 07/22/2025 8:40 AM CDT Lab Department of Laboratory Medicine and Pathology, [facility] in [place], [place] [address] [place] [phone] Becky Hernandez APRN, C.N.P., D.N.P. [address] [place] [address] [phone] 07/22/2025 9:30 AM CDT Office Visit [facility] Aravind [facility] for Transplantation and Clinical Regeneration in [place], [place] [address] [place] [phone] Becky Hernandez APRN, C.N.P., D.N.P. [address] [place] [phone] 07/30/2025 2:00 PM CDT Appointment Division of Gastroenterology in [place], [place] [address] [place] [address] [phone] Derrick Cruz Jr., M.D., M.S. [address] [place] [phone] 08/11/2025 9:00 AM CDT Nurse Only Section of Infectious Diseases in [place], [place] [address] [place] [address] [phone] Jessica Rousseau M.B.B.S. [address] [place] [address] [phone] 08/11/2025 1:00 PM CDT Clinical Support Department of Palliative Care in [place], [place] [address] [place] [address] Uma Aly APRN, C.N.P., M.S.N. [address] [place] [phone] 08/13/2025 10:00 AM CDT Lab Department of Laboratory Medicine and Pathology, [facility] in [place], [place] [address] [place] [address] Jessica Rousseau M.B.B.S. [address] [place] [phone] 08/13/2025 10:30 AM CDT Office Visit Pedro Lanza laura [facility] for Transplantation and Clinical Regeneration in [place], [place] [address] [place] [phone] Jessica Rousseau M.B.B.S. [address] [place] [phone] 08/13/2025 11:00 AM CDT Nurse Only Pedro Lanza laura [facility] for Transplantation and Clinical Regeneration in [place], [place] [address] [place] [address] Jessica Rousseau M.B.B.S. [address] [place] [phone] 08/13/2025 11:30 AM CDT [facility] in [place], [place] [address] [place] [address] Jessica Rousseau M.B.B.S. [address] [place] [phone] 09/25/2025 10:30 AM REGISTERED PHARMACIST Telemedicine Pedro sanchez [facility] for Transplantation and Clinical Regeneration in [place], [place] [address] [place] [address] Jessica Rousseau M.B.B.S. [address] [place] [address] Scheduled Referrals Name Type Priority Associated Diagnoses [...] Total Score: 2 12/10/19 25 2:46 PM REGISTERED PHARMACIST documented as of this encounter Care Teams Chemical Librarian Relationship Specialty Start Date End Date Renzo Andres M.D. [address] [place] [phone] PCP - General Family Medicine 04/25/23 documented as of this encounter
--- OUTSIDE RECORDS SUMMARY | 2025-07-19 18:14 | XMS_ITS | Encounter Summary ---
Author Organization [facility] Address [address] [place] [address] Care Team Providers Care Refrigeration Technician Name Role Phone Renzo Andres M.D. Primary Care Provider [phone] Reason for Visit * Reason Onset Date Comments Nurse Assessment 06/12/2025 Abdominal Pain 06/12/2025 Encounter Details Date Type Department Care Team (Latest Contact Info) Description 06/12/2025 Clinical Communication [facility] Trans[facility] and Clinical Regeneration in [place], [place] [address] [place] [address] Daniela Mercer R.N., BMT-CN [address] [place] [address] Nurse Assessment; Abdominal Pain Social History Tobacco [...] things needed for daily living? No 06/12/2025 [facility] Utilities Answer Date Recorded In the past 12 months has e [employer], gas, oil, or water [employer] threatened to shut off services in your home? No 06/12/2025 Depression Answer Date Recor ded PHQ-9 Total Score (max 27) 2 12/10 Housing Stability Answer Date Recorded What is your living situation today? I have a [facility] place to live 06/12/2025 Education Answer Date Recorded What is the highest level of school you have completed or the highest degree you have received? Some college, no degree 04/24/2019 Comments No Sex and Gender Information Value Date Recorded Sex Assigned at Female 12/26/2018 8:37 PM FIELD SPECIALIST Legal Sex Female 2:43 PM FIELD SPECIALIST Gender Identity Female 12/26/2018 8:37 PM FIELD SPECIALIST Sexual Orientation Choose not to disclose [...] has declined. * Telephone Encounter - Daniela Merecr R.N., DANNI - 06/12/2025 12:41 PM CDT [...] CDT Telemedicine Department of Palliative Care in [place], [place] [address] [place] [phone] Meghan Osorio M.D. [address] [place] [phone] 07/22/2025 8:40 AM CDT Lab Department of Laboratory Medicine and Pathology, [facility], in [place], [place] [address] [place] [phone] Becky Hernandez APRN, C.N.P., D.N.P. [address] [place] [phone] 07/22/2025 9:30 AM CDT Office Visit Pedro [facility] Trans[facility] Clinical Regeneration in [place], [place] [address] [place] [phone] Becky Hernandez APRN, C.N.P., D.N.P. [address] [place] [phone] 07/30/2025 2:00 PM CDT Appointment Division of Gastroenterology in [place], [place] [address] [place] [phone] Derrick Cruz Jr., M.D., M.S. [address] [place] [phone] 08/11/2025 9:00 AM CDT Nurse Only Section of Infectious Diseases in [place], [place] [address] [place] [phone] Jessica Rousseau M.B.B.S. [address] [place] [phone] 08/11/2025 1:00 PM CDT Clinical Support Department of Palliative Care in [place], [place] [address] [place] [phone] Uma Aly APRN, C.N.P., M.S.N. [address] [place] [phone] 08/13/2025 10:00 AM CDT Lab Department of Laboratory Medicine and Pathology, [facility], in [place], [place] [address] [place] [phone] Jessica Rousseau M.B.B.S. [address] [place] [phone] 08/13/2025 10:30 AM CDT Office Visit Pedro [facility] Transplantation and Clinical Regeneration in [place], [place] [address] [place] [address] Jessica Rousseau M.B.B.S. [address] [place] [phone] 08/13/2025 11:00 AM CDT Nurse Only [facility] in [place], [place] [address] [place] [phone] Jessica Rousseau M.B.B.S. [address] [place] [phone] 08/13/2025 11:30 AM CDT Office Visit [facility] in [place], [place] [address] [place] [phone] Jessica Rousseau M.B.B.S. [address] [place] [phone] 09/25/2025 10:30 AM FIELD SPECIALIST Telemedicine [facility] Transplantation and Clinical Regeneration in [place], [place] [address] [place] [phone] Jessica Rousseau M.B.B.S. [address] [place] [phone] documented as of this encounter Visit Diagnoses Not on filedocumented in this encounter Additional Health Concerns Infection Onset Date Last Indicated Resolved Time Protective Environment 03/02/2023 03/02/2023 Assessment Noted Time PHQ-9 Depression Total Score: 2 12/10/19 25 2:46 PM FIELD SPECIALIST documented as of this encounter Care Teams Refrigeration Technician Relationship Specialty Start Date End Date Renzo Andres M.D. [address] [place] [phone] PCP - General Family Medicine 04/25/23 documented as of this encounter
--- OUTSIDE RECORDS SUMMARY | 2025-07-19 18:15 | XMS_ITS | Encounter Summary ---
Author Organization [facility] Address [address] [place] [address] Care Team Providers Care Real Estate Representative Name Role Phone Renzo Andres M.D. Primary Care Provider [phone] Reason for Visit * Reason Comments Med Refill Encounter Details Date Type Department Care Team (Late st Contact Info) Description 07/16/2025 [facility] in [place], [place] [address] [place] [phone] Becky Hernandez APRN, C.N.P., D.N.P. [address] [place] [phone] Med Refill Social History Tobacco Use Types [...] for daily living? No 07/02/2025 [facility] Utilities Answer Date Recorded In the past 12 months has th [employer] electric, gas, oil, or water [employer] threatened to shut off services in your [...] Sex Assigned at Female 12/26/2018 8:37 PM FARM MACHINERY ASSEMBLER Legal Sex Female 2:43 PM FARM MACHINERY ASSEMBLER Gender Identity Female 12/26/2018 8:37 PM FARM MACHINERY ASSEMBLER Sexual Orientation Choose not to disclose 2020 3:46 PM CDT documented as of this encounter Miscellaneous Notes * Telephone Encounter - Ada Perez RKatalinaN. - 07/16/2025 9:51 AM CDT Refill signed by provider during clinic visit 07/16/25 documented in this encounter Plan of Treatment Upcoming Encounters Date Type Department Care Team (Late st Contact Info) Description 07/21/2025 11:00 AM CDT Telemedicine Department of Palliative Care in [place], [place] [address] [place] [phone] Meghan Osorio M.D. [address] [place] [phone] 07/22/2025 8:40 AM CDT Lab Department of Laboratory Medicine and Pathology, [facility], in [place], [place] [address] [place] [phone] Becky Hernandez APRN, C.N.P., D.N.P. [address] [place] [phone] 07/22/2025 9:30 AM CDT Office [facility] in [place], [place] [address] [place] [phone] Becky Hernandez APRN, C.N.P., D.N.P. [address] [place] [phone] 07/30/2025 2:00 PM CDT Appointment Division of Gastroenterology in [place], [place] [address] [place] [phone] Derrick Cruz Jr., M.D., M.S. [address] [place] [phone] 08/11/2025 9:00 AM CDT Nurse Only Section of Infectious Diseases in [place], [place] [address] [place] [phone] Jessica Rousseau M.B.B.S. [address] [place] [phone] 08/11/2025 1:00 PM CDT Clinical Support Department of Palliative Care in [place], [place] [address] [place] [address] Uma Aly APRN, C.NLuigi., M.S.N. [address] [place] [phone] 08/13/2025 10:00 AM CDT Lab Department of Laboratory Medicine and Pathology, [facility], in [place], [place] [address] [place] [address] Jessica Rousseau M.B.B.S. [address] [place] [phone] 08/13/2025 10:30 AM CDT Office Visit Pedro [facility] for Transplantation and Clinical Regeneration in [place], [place] [address] [place] [address] Jessica Rousseau M.B.B.S. [address] [place] [phone] 08/13/2025 11:00 AM CDT Nurse Only [facility] in [place], [place] [address] [place] [address] Jessica Rousseau M.B.B.S. [address] [place] [phone] 08/13/2025 11:30 AM CDT Office [facility] in [place], [place] [address] [place] [address] Jessica Rousseau M.B.B.S. [address] [place] [phone] 09/25/2025 10:30 AM FARM MACHINERY ASSEMBLER Telemedicine [facility] in [place], [place] [address] [place] [phone] Jessica Rousseau M.B.B.S. [address] [place] [phone] documented as of this encounter Goals Goal Patient Goal Type Associated Problems Recent Progress Patient-Stated? Author [facility] Care Plan for Colonoscopy Routine Prep Care Plan [facility] Care Plan for Colonoscopy Routine Prep No Derrick Cruz Jr., M.D., M.S. Autogenerated Goal Care Plan Autogenerated Problem No Sophie Galarza documented as of this encounter Visit Diagnoses Not on filedocumented in this encounter Additional Health Concerns Active Problems Noted Date Diagnosed Date [facility] Care Plan for Colonoscopy Routine Pr ep 07/16/2025 Autogenerated Problem 07/16/2025 Infection Onset Date Last Indicated Resolved Time Protective Environment 03/02/2023 03/02/2023 Assessment Noted Time PHQ-9 Depression Total Score: 12 025 9:42 AM CDT documented as of this encounter Care Teams Real Estate Representative Relationship Specialty Start Date End Date Renzo Andres M.D. [address] [place] [phone] PCP - General Family Medicine 04/25/23 documented as of this encounter
--- OUTSIDE RECORDS SUMMARY | 2025-07-19 18:15 | XMS_ITS | Encounter Summary ---
Author Organization [facility] Address [address] [place] [address] Care Team Providers Care Corporate Trainer Name Role Phone Renzo Andres M.D. Primary Care Provider [phone] Encounter Details Date Type Department Care Team (Latest Contact Info) Description 07/19/2025 Clinical Communication [facility] in [place], [place] [address] [place] [address] Pedro Scruggs, RKatalinaNKatalina Social History Tobacco Use Types Packs/Day [...] things needed for daily living? No 07/02/2025 [facility] Utilities Answer Date [...] Sex Assigned at Female 12/26/2018 8:37 PM ACCOUNTING PRACTICE MANAGER Legal Sex Female 2:43 PM ACCOUNTING PRACTICE MANAGER Gender Identity Female 12/26/2018 8:37 PM ACCOUNTING PRACTICE MANAGER Sexual Orientation Choose not to disclose 2020 3:46 PM CDT documented as of this encounter Miscellaneous Notes * Telephone Encounter - Pedro Scruggs R.N. - 07/19/2025 3:54 PM CDT Patient called [facility] reporting severe SOB and back pain. The RN instructed the patient to go to her local ED to be evaluated due to the severe SOB. Patient said that should would report to her localED. Earlier in the day (07/19/2025) the patient called reporting severe SOB and abdominal pain. The RN that was communicating with the patient instructed her to go to her local ED. While on the phone the patient self reported that she did not go to her local ED. She did not report to the ED because the SOB had self resolved after talking with the RN earlier in the day. BMT service was notified of the call and the recommendations. BMT service agreed with the recommendations. documented in this encounter Plan of Treatment Upcoming Encounters Date Type Department Care Team (Late st Contact Info) Description 07/21/2025 11:00 AM CDT Telemedicine Department of Palliative Care in [address] [phone] Meghan Osorio M.D. [address] [place] [phone] 07/22/2025 8:40 AM CDT Lab Department of Laboratory Medicine and Pathology, [facility] in [address] [phone] Becky Hernandez APRN, C.N.P., D.N.P. [address] [place] [phone] 07/22/2025 9:30 AM CDT Office [facility] in [address] [phone] Becky Hernandez APRN, C.N.P., D.N.P. [address] [place] [phone] 07/30/2025 2:00 PM CDT Appointment Division of Gastroenterology in [address] [phone] Derrick Cruz Jr., M.D., M.S. [address] [place] [phone] 08/11/2025 9:00 AM CDT Nurse Only Section of Infectious Diseases in [place], [place] [address] [place] [address] Jessica Rousseau M.B.B.S. [address] [place] [phone] 08/11/2025 1:00 PM CDT Clinical Support Department of Palliative Care in [place], [place] [address] [place] [address] Uma Aly APRN, C.N.P., M.S.N. [address] [place] [phone] 08/13/2025 10:00 AM CDT Lab Department of Laboratory Medicine and Pathology, [facility], in [place], [place] [address] [place] [phone] Jessica Rousseau M.B.B.S. [address] [place] [phone] 08/13/2025 10:30 AM CDT Office Visit Pedro Fatima [facility] for Transplantation and Clinical Regeneration in [place], [place] [address] [place] [address] Jessica Rousseau M.B.B.S. [address] [place] [phone] 08/13/2025 11:00 AM CDT Nurse Only [facility] Clinical [facility]eneration in [place], [place] [address] [place] [address] Jessica Rousseau M.B.B.S. [address] [place] [phone] 08/13/2025 11:30 AM CDT Office Visit [facility] Transplantation and Clinical Regeneration in [place], [place] [address] [place] [address] Jessica Rousseau M.B.B.S. [address] [place] [address] 09/25/2025 10:30 AM ACCOUNTING PRACTICE MANAGER Telemedicine [facility] Transplantation and Clinical Regeneration in [place], [place] [address] [place] [address] Jessica Rousseau M.B.B.S. [address] [place] [address] documented as of this encounter Goals Goal Patient Goal Type Associated Problems Recent Progress Patient-Stated? Author [facility] Care Plan for Colonoscopy Routine Prep Care Plan [facility] Care Plan for Colonoscopy Routine Prep No Derrick Cruz Jr., M.D., M.S. Autogenerated Goal Care Plan Autogenerated Problem No Sophie Galarza documented as of this encounter Visit Diagnoses Not on filedocumented in this encounter Additional Health Concerns Active Problems Noted Date Diagnosed Date [facility] Care Plan for Colonoscopy Routine Pr ep 07/16/2025 Autogenerated Problem 07/16/2025 Infection Onset Date Last Indicated Resolved Time Protective Environment 03/02/2023 03/02/2023 Assessment Noted Time PHQ-9 Depression Total Score: 12 025 9:42 AM CDT documented as of this encounter Care Teams Corporate Trainer Relationship Specialty Start Date End Date Renzo Andres M.D. [address] [place] [address] [place] [phone] PCP - General Family Medicine 04/25/23 documented as of this encounter
--- OUTSIDE RECORDS SUMMARY | 2025-07-19 18:16 | XMS_ITS | Encounter Summary ---
Author Organization [facility] Address [address] [place] [address] Care Team Providers Care Automatic Pinsetter Adjuster Name Role Phone Renzo Andres M.D. Primary Care Provider [phone] Reason for Visit * Reason Onset Date Comments Nurse Assessment 06/02/2025 Encounter Details Date Type Department Care Team (Latest Contact Info) Description 06/02/2025 Clinical Communication [facility] in [place], [place] [address] [place] [address] Transplant, Coordinator, Sanjana Nurse Assessment Social History Tobacco Use Types [...] needed for daily living? No 07/02/2025 [facility] Utilities Answer Date Recorded In the past 12 months has e electric, gas, oil, or water company threatened to shut off services in your home? No 07/02/2025 Depression Answer Date Recor ded PHQ-9 Total Score (max 27) 2 12/10 Housing Stability Answer Date Recorded What is your living situation today? I have a [facility] place to live 07/02/2025 Education Answer Date Recorded What is the highest level of school you have completed or the highest degree you have received? Some college, no degree 04/24/2019 Comments No Sex and Gender Information Value Date Recorded Sex Assigned at Female 12/26/2018 8:37 PM HOSPITALIST PHYSICIAN Legal Sex Female 2:43 PM HOSPITALIST PHYSICIAN Gender Identity Female 12/26/2018 8:37 PM HOSPITALIST PHYSICIAN Sexual Orientation Choose not to disclose 2020 [...] CDT Telemedicine Department of Palliative Care in [place], [place] [address] [place] [phone] Meghan Osorio M.D. [address] [place] [phone] 07/22/2025 8:40 AM CDT Lab Department of Laboratory Medicine and Pathology, [facility], in [place], [place] [address] [place] [phone] Becky Hernandez APRN, C.N.P., D.N.P. [address] [place] [phone] 07/22/2025 9:30 AM CDT Office [facility] in [place], [place] [address] [place] [phone] Becky Hernandez APRN, C.N.P., D.N.P. [address] [place] [phone] 07/30/2025 2:00 PM CDT Appointment Division of Gastroenterology in [place], [place] [address] [place], [place] [phone] Derrick Cruz Jr., M.D., M.S. [address] [place] [phone] 08/11/2025 9:00 AM CDT Nurse Only Section of Infectious Diseases in [place], [place] [address] [place] [phone] Jessica Rousseau M.B.B.S. [address] [place] [phone] 08/11/2025 1:00 PM CDT Clinical Support Department of Palliative Care in [place], [place] [address] [place] [phone] Uma Aly APRN, C.N.P., M.S.N. [address] [place] [phone] 08/13/2025 10:00 AM CDT Lab Department of Laboratory Medicine and Pathology, [facility], in [place], [place] [address] [place] [phone] Jessica Rousseau M.B.B.S. [address] [place] [phone] 08/13/2025 10:30 AM CDT Office [facility] in [place], [place] [address] [place] [phone] Jessica Rousseau M.B.B.S. [address] [place] [phone] 08/13/2025 11:00 AM CDT Nurse Only [facility] Clinical [facility] in [place], [place] [address] [place] [address] Jessica Rousseau M.B.B.S. [address] [place] [phone] 08/13/2025 11:30 AM CDT Office Visit [facility] Trans[facility] and Clinical Regeneration in [place], [place] [address] [place] [address] Jessica Rousseau M.B.B.S. [address] [place] [phone] 09/25/2025 10:30 AM HOSPITALIST PHYSICIAN Telemedicine [facility] Transplantation and Clinical Regeneration in [place], [place] [address] [place] [address] Jessica Rousseau M.B.B.S. [address] [place] [phone] documented as of this encounter Visit Diagnoses Not on filedocumented in this encounter Additional Health Concerns Infection Onset Date Last Indicated Resolved Time Protective Environment 03/02/2023 03/02/2023 Assessment Noted Time PHQ-9 Depression Total Score: 2 12/10/19 25 2:46 PM HOSPITALIST PHYSICIAN documented as of this encounter Care Teams Automatic Pinsetter Adjuster Relationship Specialty Start Date End Date Renzo Andres M.D. [address] [place] [phone] PCP - General Family Medicine 04/25/23 documented as of this encounter
--- OUTSIDE RECORDS SUMMARY | 2025-07-19 18:16 | XMS_ITS | Encounter Summary ---
Author Organization [facility] Address [address] [place] [address] Care Team Providers Care Lead Cook Name Role Phone Renzo Andres M.D. Primary Care Provider Reason for Visit * Reason Comments Med Refill Encounter Details Date Type Department Care Team (Late st Contact Info) Description 07/19/2025 Refill [facility], [facility], [facility], Ninth Floor [address] [place] [address] Analia Carter, INSTRUMENT MAN, C.N.P. [address] [place] [phone] Med Refill Social History Tobacco Use Types [...] things needed for daily living? No 07/02/2025 [facility] Utilities Answer Date Recorded In the past 12 months has [employer], gas, oil, or water [employer] threatened to shut off services in your home? No 07/02/2025 Depression Answer Date Recor ded PHQ-9 Total Score (max 27) 12 07/08 Housing Stability Answer Date Recorded What is your living situation today? I have a [facility] place to live 07/02/2025 Education Answer Date Recorded What is the highest level of school you have completed or the highest degree you have received? Some college, no degree 04/24/2019 Comments No Sex and Gender Information Value Date Recorded Sex Assigned at Female 12/26/2018 8:37 PM TESTING SPECIALIST Legal Sex Female 2:43 PM TESTING SPECIALIST Gender Identity Female 12/26/2018 8:37 PM TESTING SPECIALIST Sexual Orientation Choose not to disclose 2020 3:46 PM CDT documented as of this encounter Plan of Treatment Upcoming Encounters Date Type Department Care Team (Late st Contact Info) Description 07/21/2025 11:00 AM CDT Telemedicine Department of Palliative Care in [place], [place] 200 [place] [address] Meghan Osorio M.D. 200 [place] [address] 07/22/2025 8:40 AM CDT Lab Department of Laboratory Medicine and Pathology, [facility], in [place], [place] [address] [place] [phone] Becky Hernandez APRN C.N.P., D.N.P. [address] [place] [phone] 07/22/2025 9:30 AM CDT Office Visit Pedro Aravind [facility] for Transplantation and Clinical Regeneration in [place], [place] [address] [place] [phone] Becky Hernandez APRN C.N.P., D.N.P. [address] [place] [phone] 07/30/2025 2:00 PM CDT Appointment Division of Gastroenterology in [place], [place] [address] [place] [phone] Derrick Cruz Jr., M.D., M.S. [address] [place] [phone] 08/11/2025 9:00 AM CDT Nurse Only Section of Infectious Diseases in [place], [place] [address] [place] [phone] Jessica Rousseau M.B.B.S. [address] [place] [phone] 08/11/2025 1:00 PM CDT Clinical Support Department of Palliative Care in [place], [place] [address] [place] [phone] Uma Aly APRN C.N.P., M.S.N. [address] [place] [phone] 08/13/2025 10:00 AM CDT Lab Department of Laboratory Medicine and Pathology, [facility], in [place], [place] [address] [place] [address] Jessica Rousseau M.B.B.S. [address] [place] [address] 08/13/2025 10:30 AM CDT Office Visit Pedro sanchez [facility] for Transplantation and Clinical Regeneration in [place], [place] [address] [place] [address] Jessica Rousseau M.B.B.S. [address] [place] [phone] 08/13/2025 11:00 AM CDT [facility] in [place], [place] [address] [place] [address] Jessica Rousseau M.B.B.S. [address] [place] [phone] 08/13/2025 11:30 AM CDT Office Visit Pedro Aravind sanchez [facility] [address] for Transplantation and Clinical Regeneration in [place], [place] [address] [place] [address] Jessica Rousseau M.B.B.S. [address] [place] [phone] 09/25/2025 10:30 AM TESTING SPECIALIST Telemedicine [facility] in [place], [place] [address] [place] [address] Jessica Rousseau M.B.B.S. [address] [place] [phone] documented as of this encounter Goals Goal Patient Goal Type Associated Problems Recent Progress Patient-Stated? Author [facility] Care Plan for Colonoscopy Routine Prep Care Plan [facility] Care Plan for Colonoscopy Routine Prep No Derrick Cruz Jr., M.D., M.S. 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 [address] [place] [phone] PCP - General Family Medicine 04/25/23 documented as of this encounter
--- OUTSIDE RECORDS SUMMARY | 2025-07-19 18:16 | XMS_ITS | Encounter Summary ---
Author Organization [facility] Address [address] [place] [address] Care Team Providers Care Vibratory Pile Driver Name Role Phone Renzo Andres M.D. Primary Care Provider Encounter Details Date Type Department Care Team (Late st Contact Info) Description 07/19/2025 Clinical Communication [facility], Ninth Floor [address] [place] [address] Jaya Perkins, M.S.N., R.N. [address] [place] [phone] Social History Tobacco Use Types Packs/Day Years [...] things needed for daily living? No 07/02/2025 [facility] Utilities Answer Date Recorded In the past 12 months has th [employer] electric, gas, oil, or water company threatened to shut off services in your home? No 07/02/2025 Depression Answer Date Recor ded PHQ-9 Total Score (max 27) 12 07/08 Housing Stability Answer Date Recorded What is your living situation today? I have a [facility] place to live 07/02/2025 Education Answer Date Recorded What is the highest level of school you have completed or the highest degree you have received? Some college, no degree 04/24/2019 Comments No Sex and Gender Information Value Date Recorded Sex Assigned at Female 12/26/2018 8:37 PM PEST LOCATOR Legal Sex Female 2:43 PM PEST LOCATOR Gender Identity Female 12/26/2018 8:37 PM PEST LOCATOR Sexual Orientation Choose not to disclose 2020 3:46 PM CDT documented as of this encounter Miscellaneous Notes * Telephone Encounter - Jaya Perkins M.S.N., R.N. - 07/19/2025 4:42 AM CDT Patient called regarding acute symptom of shortness of breath. Patient also reported symptoms of night sweats, severe headache, chronic pain, and abdominal bloating. RN directed patient to go to her local ED as soon as she could to get the SOB evaluated. Patient was agreeable to this plan. RN discussed case with BMT provider on-call who also agreed with this plan. documented in this encounter Plan of Treatment Upcoming Encounters Date Type Department Care Team (Late st Contact Info) Description 07/21/2025 11:00 AM CDT Telemedicine Department of Palliative Care in [address] [phone] Meghan Osorio M.D. [address] [place] [phone] 07/22/2025 8:40 AM CDT Lab Department of Laboratory Medicine and Pathology, [facility], in [place], [place] [address] [place] [phone] Becky Hernandez APRN C.N.P., D.N.P. [address] [place] [phone] 07/22/2025 9:30 AM CDT Office Visit Pedro sanchez [facility] for Transplantation and Clinical Regeneration in [address] [phone] Becky Hernandez APRN C.N.P., D.N.P. [address] [place] [phone] 07/30/2025 2:00 PM CDT Appointment Division of Gastroenterology in [address] [phone] Derrick Cruz Jr., M.D., M.S. [address] [place] [phone] 08/11/2025 9:00 AM CDT Nurse Only Section of Infectious Diseases in [address] [phone] Jessica Rousseau M.B.B.S. [address] [place] [phone] 08/11/2025 1:00 PM CDT Clinical Support Department of Palliative Care in [place], [place] [address] [place] [address] Uma Aly APRN, C.N.P., M.S.N. [address] [place] [phone] 08/13/2025 10:00 AM CDT Lab Department of Laboratory Medicine and Pathology, [facility], in [place], [place] [address] [place] [address] Jessica Rousseau M.B.B.S. [address] [place] [phone] 08/13/2025 10:30 AM CDT [facility] in [place], [place] [address] [place] [address] Jessica Rousseau M.B.B.S. [address] [place] [phone] 08/13/2025 11:00 AM CDT Nurse Only [facility] for Transplantation and Clinical Regeneration in [place], [place] [address] [place] [address] Jessica Rousseau M.B.B.S. [address] [place] [phone] 08/13/2025 11:30 AM CDT Office [facility] in [place], [place] [address] [place] [address] Jessica Rousseau M.B.B.S. [address] [place] [address] 09/25/2025 10:30 AM PEST LOCATOR Telemedicine Pedro Aravind [facility] for Transplantation and Clinical Regeneration in [place], [place] [address] [place] [address] Jessica Rousseau M.B.B.S. [address] [place] [address] documented as of this encounter Goals Goal Patient Goal Type Associated Problems Recent Progress Patient-Stated? Author [facility] Care Plan for Colonoscopy Routine Prep Care Plan [facility] Care Plan for Colonoscopy Routine Prep No Derrick Cruz Jr., M.D., M.S. Autogenerated Goal Care Plan Autogenerated Problem No Sophie Galarza documented as of this encounter Visit Diagnoses Not on filedocumented in this encounter Additional Health Concerns Active Problems Noted Date Diagnosed Date [facility] Care Plan for Colonoscopy Routine Pr ep 07/16/2025 Autogenerated Problem 07/16/2025 Infection Onset Date Last Indicated Resolved Time Protective Environment 03/02/2023 03/02/2023 Assessment Noted Time PHQ-9 Depression Total Score: 12 025 9:42 AM CDT documented as of this encounter Care Teams Vibratory Pile Driver Relationship Specialty Start Date End Date Renzo Andres M.D. [address] [place] [phone] PCP - General Family Medicine 04/25/23 documented as of this encounter
--- OUTSIDE RECORDS SUMMARY | 2025-07-19 18:16 | XMS_ITS | Encounter Summary ---
Author Organization [facility] Address [address] [place] [address] Care Team Providers Care Camera Engineer Name Role Phone Renzo Andres M.D. Primary Care Provider Encounter Details Date Type Department Care Team (Late st Contact Info) Description 07/17/2025 Orders Only Pedro sanchez [facility] for Transplantation and Clinical Regeneration in [place], [place] [address] [place] [phone] Jessica Rousseau M.B.B.S. [address] [place] [phone] Social History Tobacco Use Types Packs/Day Years [...] for daily living? No 07/02/2025 [facility] Utilities Answer Date Recorded In the past 12 months has th e electric, gas, oil, or water company threatened to shut off services in your home? No 07/02/2025 Depression Answer Date Recor ded PHQ-9 Total Score (max 27) 12 07/08 Housing Stability Answer Date Recorded What is your living situation today? I have a [facility] place to live 07/02/2025 Education Answer Date Recorded What is the highest level of school you have completed or the highest degree you have received? Some college, no degree 04/24/2019 Comments No Sex and Gender Information Value Date Recorded Sex Assigned at Female 12/26/2018 8:37 PM JOINERY PATTERNMAKER Legal Sex Female 2:43 PM JOINERY PATTERNMAKER Gender Identity Female 12/26/2018 8:37 PM JOINERY PATTERNMAKER Sexual Orientation Choose not to disclose 2020 3:46 PM CDT documented as of this encounter Plan of Treatment Upcoming Encounters Date Type Department Care Team (Late st Contact Info) Description 07/21/2025 11:00 AM CDT Telemedicine Department of Palliative Care in [place], [place] 200 [place] [address] Meghan Osorio M.D. 200 [place] [address] 07/22/2025 8:40 AM CDT Lab Department of Laboratory Medicine and Pathology, [facility], in [place], [place] [address] [place] [address] Becky Hernandez APRN, C.N.P., D.N.P. [address] [place] [phone] 07/22/2025 9:30 AM CDT Office Visit [facility] for Transplantation and Clinical Regeneration in [place], [place] [address] [place] [address] Becky Hernandez APRN, C.N.Jean., D.N.P. [address] [place] [phone] 07/30/2025 2:00 PM CDT Appointment Division of Gastroenterology in [place], [place] [address] [place] [phone] Derrick Cruz Jr., M.D., M.S. [address] [place] [phone] 08/11/2025 9:00 AM CDT Nurse Only Section of Infectious Diseases in [place], [place] [address] [place] [phone] Jessica Rousseau M.B.B.S. [address] [place] [phone] 08/11/2025 1:00 PM CDT Clinical Support Department of Palliative Care in [place], [place] [address] [place] [phone] Uma Aly APRN, C.N.P., M.S.N. [address] [place] [phone] 08/13/2025 10:00 AM CDT Lab Department of Laboratory Medicine and Pathology, [facility], in [place], [place] [address] [place] [address] Jessica Rousseau M.B.B.S. [address] [place] [phone] 08/13/2025 10:30 AM CDT [facility] in [place], [place] [address] [place] [address] Jessica Rousseau M.B.B.S. [address] [place] [phone] 08/13/2025 11:00 AM CDT Nurse Only [facility] in [place], [place] [address] [place] [address] Jessica Rousseau M.B.B.S. [address] [place] [phone] 08/13/2025 11:30 AM CDT Office [facility] in [place], [place] [address] [place] [address] Jessica Rousseau M.B.B.S. [address] [place] [phone] 09/25/2025 10:30 AM JOINERY PATTERNMAKER Telemedicine [facility] in [place], [place] [address] [place] [address] Jessica Rousseau M.B.B.S. [address] [place] [phone] documented as of this encounter Goals Goal Patient Goal Type Associated Problems Recent Progress Patient-Stated? Author [facility] Care Plan for Colonoscopy Routine Prep Care Plan [facility] Care Plan for Colonoscopy Routine Prep No Derrick Cruz Jr., M.D., M.S. Autogenerated Goal Care Plan Autogenerated Problem No Sophie Galarza documented as of this encounter Visit Diagnoses Not on filedocumented in this encounter Additional Health Concerns Active Problems Noted Date Diagnosed Date [facility] Care Plan for Colonoscopy Routine Pr ep 07/16/2025 Autogenerated Problem 07/16/2025 Infection Onset Date Last Indicated Resolved Time Protective Environment 03/02/2023 03/02/2023 Assessment Noted Time PHQ-9 Depression Total Score: 12 025 9:42 AM CDT documented as of this encounter Care Teams Camera Engineer Relationship Specialty Start Date End Date Renzo Andres M.D. [address] [place] [phone] PCP - General Family Medicine 04/25/23 documented as of this encounter
--- OUTSIDE RECORDS SUMMARY | 2025-07-19 18:17 | XMS_ITS | Encounter Summary ---
Author Organization [facility] Address [address] [place] [address] Care Team Providers Care Interventional Radiologist Name Role Phone Renzo Andres M.D. Primary Care Provider Encounter Details Date Type Department Care Team (Late st Contact Info) Description 06/30/2025 Orders Only Pedro Nazario [facility] for Transplantation and Clinical Regeneration in [place], [place] [address] [place] [phone] Jessica Rousseau M.B.B.S. [address] [place] [phone] Transplant Bone Marrow Allogeneic (HCC) (Primary Dx) [...] No 07/02/2025 [facility] Utilities Answer Date Recorded In the past 12 months has e [employer], gas, oil, or water company threatened to shut off services in your home? No 07/02/2025 Depression Answer Date Recor ded PHQ-9 Total Score (max 27) 12 07/08 Housing Stability Answer Date Recorded What is your living situation today? I have a [facility] place to live 07/02/2025 Education Answer Date Recorded What is the highest level of school you have completed or the highest degree you have received? Some college, no degree 04/24/2019 Comments No Sex and Gender Information Value Date Recorded Sex Assigned at Female 12/26/2018 8:37 PM STORE WORKER Legal Sex Female 2:43 PM STORE WORKER Gender Identity Female 12/26/2018 8:37 PM STORE WORKER Sexual Orientation Choose not to disclose 2020 3:46 PM CDT documented as of this encounter Plan of Treatment Upcoming Encounters Date Type Department Care Team (Late st Contact Info) Description 07/21/2025 11:00 AM CDT Telemedicine Department of Palliative Care in [place], [place] 200 [place] [address] Meghan Osorio M.D. 200 [place] [address] 07/22/2025 8:40 AM CDT Lab Department of Laboratory Medicine and Pathology, [facility], in [place], [place] [address] [place] [phone] Becky Hernandez APRN, C.N.P., D.N.P. [address] [place] [phone] 07/22/2025 9:30 AM CDT Office Visit Pedro Aravind [facility] for Transplantation and Clinical Regeneration in [place], [place] [address] [place] [phone] Becky Hernandez APRN, C.N.P., D.N.P. [address] [place] [phone] 07/30/2025 2:00 PM CDT Appointment Division of Gastroenterology in [place], [place] [address] [place] [phone] Derrick Cruz Jr., M.D., M.S. [address] [place] [phone] 08/11/2025 9:00 AM CDT Nurse Only Section of Infectious Diseases in [place], [place] [address] [place] [phone] Jessica Rousseau M.B.B.S. [address] [place] [phone] 08/11/2025 1:00 PM CDT Clinical Support Department of Palliative Care in [place], [place] [address] [place] [phone] Uma Aly APRN, C.N.P., M.S.N. [address] [place] [phone] 08/13/2025 10:00 AM CDT Lab Department of Laboratory Medicine and Pathology, [facility], in [place], [place] [address] [place] [address] Jessica Rousseau M.B.B.S. [address] [place] [address] 08/13/2025 10:30 AM CDT [facility] in [place], [place] [address] [place] [address] Jessica Rousseau M.B.B.S. [address] [place] [phone] 08/13/2025 11:00 AM CDT Nurse Only [facility] Clinical Regeneration in [place], [place] [address] [place] [address] Jessica Rousseau M.B.B.S. [address] [place] [phone] 08/13/2025 11:30 AM CDT Office [facility] Clinical Regeneration in [place], [place] [address] [place] [address] Jessica Rousseau M.B.B.S. [address] [place] [phone] 09/25/2025 10:30 AM STORE WORKER Telemedicine [facility] in [place], [place] [address] [place] [address] Jessica Rousseau M.B.B.S. [address] [place] [phone] documented as of this encounter Results * Amylase, Total (06/30/2025 1:12 PM CDT) Amylase, Total, S 50 28 - 100 U/L 06/30/2025 2:24 PM CDT DTL Blood (Blood, Venous) 06/30/2025 1:12 PM CDT 06/30/2025 1:19 PM CDT Jessica DowlingB.S. LAB BLOOD ADD-ON Final Res ult Performing Organization Address City/[facility]/ZIP Co de Phone Number [facility] 200 [place] [address] * Lipase (06/30/2025 1:12 PM CDT) Lipase, S 18 13 - 60 U/L 06/30/2025 2: 24 PM CDT DTL Blood (Blood, Venous) 06/30/2025 1:12 PM CDT 06/30/2025 1:19 PM CDT Jessica Cook.B.S. LAB BLOOD ADD-ON Final Res ult Performing Organization Address City/[facility]/[place] [address] documented in this encounter Visit Diagnoses Diagnosis Transplant Bone Marrow Allogeneic (HCC)- Primary documented in this encounter Additional Health Concerns Infection Onset Date Last Indicated Resolved Time Protective Environment 03/02/2023 03/02/2023 Assessment Noted Time PHQ-9 Depression Total Score: 2 12/10/19 25 2:46 PM STORE WORKER documented as of this encounter Care Teams Interventional Radiologist Relationship Specialty Start Date End Date Renzo Andres M.D. [address] [place] [phone] (work) PCP - General Family Medicine 04/25/23 documented as of this encounter
--- OUTSIDE RECORDS SUMMARY | 2025-07-19 18:18 | XMS_ITS | Encounter Summary ---
Author Organization [facility] Address [address] [place] [address] Care Team Providers Care Institutional Cook Name Role Phone Renzo Andres M.D. Primary Care Provider Reason for Referral * Specialty Diagnoses / Procedures Referred By Estefania acosta Referred To Contact Diagnoses Transplant Bone Marrow Allogeneic (HCC) RST [facility] [address] [place] [address] Phone: tel: [facility] Referral ID Status Reason Start Date Expiration Date Visits Re quested Visits Authorized Encounter Details Date Type Department Care Team ([facility] st Contact Info) Description 06/30/2025 Orders Only [facility], Ninth Floor [address] [place] [phone] Jimmy Rodriguez M.D. [address] [place] [address] Transplant Bone Marrow Allogeneic (HCC) [...] Recorded In the past 12 months has [facility] electric, gas, oil, or water company threatened to shut off services in your home? No 07/02/2025 Depression Answer Date Recor ded PHQ-9 Total Score (max 27) 12 07/08 Housing Stability Answer Date Recorded What is your living situation today? I have a [facility] place to live 07/02/2025 Education Answer Date Recorded What is the highest level of school you have completed or the highest degree you have received? Some college, no degree 04/24/2019 Comments No Sex and Gender Information Value Date Recorded Sex Assigned at Female 12/26/2018 8:37 PM BLEACH BOILER PACKER Legal Sex Female 2:43 PM BLEACH BOILER PACKER Gender Identity Female 12/26/2018 8:37 PM BLEACH BOILER PACKER Sexual Orientation Choose not to disclose 2020 3:46 PM CDT documented as of this encounter Plan of Treatment Upcoming Encounters Date Type Department Care Team (Late st Contact Info) Description 07/21/2025 11:00 AM CDT Telemedicine Department of Palliative Care in [place], [place] [address] [place] [phone] Meghan Osorio M.D. [address] [place] [phone] 07/22/2025 8:40 AM CDT Lab Department of Laboratory Medicine and Pathology, [facility] in [place], [place] [address] [place] [phone] Becky Hernandez APRN C.N.P., D.N.P. [address] [place] [phone] 07/22/2025 9:30 AM CDT Office Visit Pedro sanchez [facility] for Transplantation and Clinical Regeneration in [place], [place] [address] [place] [phone] Becky Hernandez APRN, C.N.P., D.N.P. [address] [place] [phone] 07/30/2025 2:00 PM CDT Appointment Division of Gastroenterology in [place], [place] [address] [place] [phone] Derrick Cruz Jr., M.D., M.S. [address] [place] [phone] 08/11/2025 9:00 AM CDT Nurse Only Section of Infectious Diseases in [place], [place] [address] [place] [phone] Jessica Rousseau M.B.B.S. [address] [place] [phone] 08/11/2025 1:00 PM CDT Clinical Support Department of Palliative Care in [place], [place] [address] [place] [address] Uma Aly APRN, CKatalinaNKatalinaP., M.S.N. [address] [place] [phone] 08/13/2025 10:00 AM CDT Lab Department of Laboratory Medicine and Pathology, [facility] in [place], [place] [address] [place] [address] Jessica Rousseau M.B.B.S. [address] [place] [phone] 08/13/2025 10:30 AM CDT Office Visit Pedro Nazario [facility] for Transplantation and Clinical Regeneration in [place], [place] [address] [place] [address] Jessica Rousseau M.B.B.S. [address] [place] [phone] 08/13/2025 11:00 AM CDT Nurse Only [facility] in [place], [place] [address] [place] [address] Jessica Rousseau M.B.B.S. [address] [place] [phone] 08/13/2025 11:30 AM CDT Office Visit Pedro Nazario [facility] for Transplantation and Clinical Regeneration in [place], [place] [address] [place] [address] Jessica Rousseau M.B.B.S. [address] [place] [phone] 09/25/2025 10:30 AM BLEACH BOILER PACKER Telemedicine Pedro Aravind [facility] for Transplantation and Clinical Regeneration in [place], [place] [address] [place] [address] Jessica Rousseau M.B.B.S. [address] [place] [address] Scheduled Referrals Name Type Priority Associated Diagnoses [...] Total Score: 2 12/10/19 25 2:46 PM BLEACH BOILER PACKER documented as of this encounter Care Teams Institutional Cook Relationship Specialty Start Date End Date Renzo Andres M.D. [address] [place] [phone] PCP - General Family Medicine 04/25/23 documented as of this encounter
--- OUTSIDE RECORDS SUMMARY | 2025-07-19 18:18 | XMS_ITS | Encounter Summary ---
Author Organization [facility] Address [address] [place] [address] Care Team Providers Care Sociology Professor Name Role Phone Renzo Andres M.D. Primary Care Provider Encounter Details Date Type Department Care Team (Late st Contact Info) Description 06/30/2025 Orders Only Pedro Nazario [facility] for Transplantation and Clinical Regeneration in [place], [place] [address] [place] [phone] Jessica Rousseau M.B.B.S. [address] [place] [phone] Social History Tobacco Use Types Packs/Day Years [...] Sex Assigned at Female 12/26/2018 8:37 PM CHASSIS MECHANIC Legal Sex Female 2:43 PM CHASSIS MECHANIC Gender Identity Female 12/26/2018 8:37 PM CHASSIS MECHANIC Sexual Orientation Choose not to disclose 2020 3:46 PM CDT documented as of this encounter Plan of Treatment Upcoming Encounters Date Type Department Care Team (Late st Contact Info) Description 07/21/2025 11:00 AM CDT Telemedicine Department of Palliative Care in [place], [place] 200 [place] [address] Meghan Osorio M.D. 200 [place] [phone] 07/22/2025 8:40 AM CDT Lab Department of Laboratory Medicine and Pathology, [facility], in [place], [place] [address] [place] [address] Becky Hernandez APRN, C.N.PKatalina, D.N.P. [address] [place] [phone] 07/22/2025 9:30 AM CDT Office Visit [facility] Aravind [facility] for Transplantation and Clinical Regeneration in [place], [place] [address] [place] [address] Becky Hernandez APRN, C.N.Jean., D.N.P. [address] [place] [phone] 07/30/2025 2:00 PM CDT Appointment Division of Gastroenterology in [place], [place] [address] [place] [phone] Derrick Cruz Jr., M.D., M.S. [address] [place] [phone] 08/11/2025 9:00 AM CDT Nurse Only Section of Infectious Diseases in [place], [place] [address] [place] [phone] Jessica Rousseau M.B.B.S. [address] [place] [phone] 08/11/2025 1:00 PM CDT Clinical Support Department of Palliative Care in [place], [place] [address] [place] [phone] Uma Aly APRN, C.N.P., M.S.N. [address] [place] [phone] 08/13/2025 10:00 AM CDT Lab Department of Laboratory Medicine and Pathology, [facility], in [place], [place] [address] [place] [address] Jessica Rousseau M.B.B.S. [address] [place] [phone] 08/13/2025 10:30 AM CDT [facility] in [place], [place] [address] [place] [address] Jessica Rousseau M.B.B.S. [address] [place] [phone] 08/13/2025 11:00 AM CDT [facility] in [place], [place] [address] [place] [address] Jessica Rousseau M.B.B.S. [address] [place] [phone] 08/13/2025 11:30 AM CDT Office [facility] in [place], [place] [address] [place] [address] Jessica Rousesau M.B.B.S. [address] [place] [phone] 09/25/2025 10:30 AM CHASSIS MECHANIC Telemedicine Pedro [facility] in [place], [place] [address] [place] [address] Jessica Rousseau M.B.B.S. [address] [place] [phone] documented as of this encounter Visit Diagnoses Not on filedocumented in this encounter Additional Health Concerns Infection Onset Date Last Indicated Resolved Time Protective Environment 03/02/2023 03/02/2023 Assessment Noted Time PHQ-9 Depression Total Score: 2 12/10/19 25 2:46 PM CHASSIS MECHANIC documented as of this encounter Care Teams Sociology Professor Relationship Specialty Start Date End Date Renzo Andres M.D. [address] [place] [phone] PCP - General Family Medicine 04/25/23 documented as of this encounter
--- OUTSIDE RECORDS SUMMARY | 2025-07-19 18:18 | XMS_ITS | Encounter Summary ---
Author Organization [facility] Address [address] [place] [address] Care Team Providers Care Hospice Liaison Name Role Phone Renzo Andres M.D. Primary Care Provider [phone] Encounter Details Date Type Department Care Team (Late st Contact Info) Description 07/01/2025 Orders Only Department of Cardiovascular Medicine in [place], [place] [address] [place] [phone] Leighton Andres M.D. [address] [place] [phone] Social History Tobacco Use Types Packs/Day Years [...] for daily living? No 07/02/2025 [facility] Utilities Answer Date Recorded In the past 12 months has [employer] electric, gas, oil, or water company threatened to shut off services in your home? No 07/02/2025 Depression Answer Date Recor ded PHQ-9 Total Score (max 27) 2 12/10 Housing Stability Answer Date Recorded What is your living situation today? I have a [facility] place to live 07/02/2025 Education Answer Date Recorded What is the highest level of school you have completed or the highest degree you have received? Some college, no degree 04/24/2019 Comments No Sex and Gender Information Value Date Recorded Sex Assigned at Female 12/26/2018 8:37 PM COMPOSITION ROOFER Legal Sex Female 2:43 PM COMPOSITION ROOFER Gender Identity Female 12/26/2018 8:37 PM COMPOSITION ROOFER Sexual Orientation Choose not to disclose 2020 3:46 PM CDT documented as of this encounter Plan of Treatment Upcoming Encounters Date Type Department Care Team (Late st Contact Info) Description 07/21/2025 11:00 AM CDT Telemedicine Department of Palliative Care in [place], [place] 200 [place] [address] Meghan Osorio M.D. 200 [place] [address] 07/22/2025 8:40 AM CDT Lab Department of Laboratory Medicine and Pathology, [facility], in [place], [place] [address] [place] [address] Becky Hernandez APRN, C.N.P., D.N.P. [address] [place] [phone] 07/22/2025 9:30 AM CDT Office Visit [facility] Aravind [facility] for Transplantation and Clinical Regeneration in [place], [place] [address] [place] [address] Becky Hernandez APRN, C.N.P., D.N.P. [address] [place] [phone] 07/30/2025 2:00 PM CDT Appointment Division of Gastroenterology in [place], [place] [address] [place] [phone] Derrick Cruz Jr., M.D., M.S. [address] [place] [phone] 08/11/2025 9:00 AM CDT Nurse Only Section of Infectious Diseases in [place], [place] [address] [place] [phone] Jessica Rousseau M.B.B.S. [address] [place] [phone] 08/11/2025 1:00 PM CDT Clinical Support Department of Palliative Care in [place], [place] [address] [place] [phone] Uma Aly APRN, C.N.P., M.S.N. [address] [place] [phone] 08/13/2025 10:00 AM CDT Lab Department of Laboratory Medicine and Pathology, [facility], in [place], [place] [address] [place] [address] Jessica Rousseau M.B.B.S. [address] [place] [phone] 08/13/2025 10:30 AM CDT [facility] in [place], [place] [address] [place] [address] Jessica Rousseau M.B.B.S. [address] [place] [phone] 08/13/2025 11:00 AM CDT Nurse Only [facility] in [place], [place] [address] [place] [address] Jessica Rousseau M.B.B.S. [address] [place] [phone] 08/13/2025 11:30 AM CDT [facility] in [place], [place] [address] [place] [address] Jessica Rousseau M.B.B.S. [address] [place] [phone] 09/25/2025 10:30 AM COMPOSITION ROOFER Telemedicine [facility] [place] [facility] Transplantation and Clinical Regeneration in [place], [place] [address] [place] [address] Jessica Rousseau M.B.B.S. [address] [place] [phone] documented as of this encounter Visit Diagnoses Not on filedocumented in this encounter Additional Health Concerns Infection Onset Date Last Indicated Resolved Time Protective Environment 03/02/2023 03/02/2023 Assessment Noted Time PHQ-9 Depression Total Score: 2 12/10/19 25 2:46 PM COMPOSITION ROOFER documented as of this encounter Care Teams Hospice Liaison Relationship Specialty Start Date End Date Renzo Andres M.D. [address] [place] [phone] PCP - General Family Medicine 04/25/23 documented as of this encounter
--- OUTSIDE RECORDS SUMMARY | 2025-07-19 18:18 | XMS_ITS | Encounter Summary ---
Author Organization [facility] Address [address] [place] [address] Care Team Providers Care Ethylene Plant Operator Name Role Phone Renzo Andres M.D. Primary Care Provider Reason for Visit * Reason Onset Date Comments Phone Contact 07/01/2025 Abdominal Pain Encounter Details Date Type Department Care Team (Latest Contact Info) Description 07/01/2025 Clinical Communication [facility] in [place], [place] [address] [place] [address] Jessica Rousseau M.B.B.S. [address] [place] [phone] Phone Contact (Abdominal Pain ) Social History [...] has e electric, gas, oil, or water Infrastructure Networks threatened to shut off services in your home? No 07/02/2025 Depression Answer Date Recor ded PHQ-9 Total Score (max 27) 2 12/10 Housing Stability Answer Date Recorded What is your living situation today? I have a [facility] place to live 07/02/2025 Education Answer Date Recorded What is the highest level of school you have completed or the highest degree you have received? Some college, no degree 04/24/2019 Comments No Sex and Gender Information Value Date Recorded Sex Assigned at Female 12/26/2018 8:37 PM CANDY PULLER Legal Sex Female 2:43 PM CANDY PULLER Gender Identity Female 12/26/2018 8:37 PM CANDY PULLER Sexual Orientation Choose not to disclose 2020 3:46 PM CDT documented as of this encounter Miscellaneous Notes * Addendum Note - Sal Mercer R.N., BMT-CN - 07/02/2025 3:41 PM CDT Addended by: SAL MERCER on: 07/02/2025 03:41 PM Modules accepted: Orders * Telephone Encounter - Sal Mercer R.N., [facility] - 07/02/2025 2:56 PM CDT Patient did call No fever temp 97.5 She feels anxious and eyes are itching She is going to take Atarax ( palliative stated she could take this with her patch) She will call back in an hour if she is not feeling any better Stated urinary feeling of having to void but can't Trying to eat Talked about taking Budesonide 6 mg daily all at the same time to help with sleep during the night She is taking Compazine BID and Zofran she has 4 mg dissolving tablets she took two when i called her and stated she has to wait the 8 hours to repeat and that goes with compazine every 6 hours This phone call was at 1300 * Telephone Encounter - Sal Mercer R.N., [facility] - 07/02/2025 11:54 AM CDT I did call patient this am; She started today taking pred 40 mg We will wait for approval of Moiz She increased her Protonix to BID She was requesting dilaudid for pain( this is giving her 45 min of relief) i talked to Dr rousseau andsent her a refill on this, this may be causing her nausea 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 Unsure In the past flare up her nausea vomiting and diarrhea stopped when she started pred but had chest pain( Hoping this wont happen this time) She is taking compazine BID and Zofran as needed She is having diarrhea and formed stools She will up date us with issues She has a virtual appt in one week( Dr Rousseau felt labs are not needed) Face to face visit in 2 weeks with labs Will continue to follow her with her concerns I did tell her to eat small frequent meals documented in this encounter Plan of Treatment Upcoming Encounters Date Type Department Care Team (Late st Contact Info) Description 07/21/2025 11:00 AM CDT Telemedicine Department of Palliative Care in [place], [place] [address] [place] [phone] Meghan Osorio M.D. [address] [place] [phone] 07/22/2025 8:40 AM CDT Lab Department of Laboratory Medicine and Pathology, [facility] in [place], [place] [address] [place] [address] Becky Hernandez APRN C.N.P., D.N.P. [address] [place] [phone] 07/22/2025 9:30 AM CDT Office Visit Pedro Aravind [facility] for Transplantation and Clinical Regeneration in [place], [place] [address] [place] [address] Becky Hernandez APRN C.N.P., D.N.P. [address] [place] [phone] 07/30/2025 2:00 PM CDT Appointment Division of Gastroenterology in [place], [place] [address] [place] [phone] Derrick Cruz Jr., M.D., M.S. [address] [place] [phone] 08/11/2025 9:00 AM CDT Nurse Only Section of Infectious Diseases in [place], [place] [address] [place] [phone] Jessica Rousseau M.B.B.S. [address] [place] [phone] 08/11/2025 1:00 PM CDT Clinical Support Department of Palliative Care in [place], [place] [address] [place] [address] Uma Aly APRN, C.NKatalinaP., M.S.N. [address] [place] [phone] 08/13/2025 10:00 AM CDT Lab Department of Laboratory Medicine and Pathology, [facility] in [place], [place] [address] [place] [address] Jessica Rousseau M.B.B.S. [address] [place] [phone] 08/13/2025 10:30 AM CDT Office Visit Pedro Fatima [facility] for Transplantation and Clinical Regeneration in [place], [place] [address] [place] [address] Jessica Rousseau M.B.B.S. [address] [place] [phone] 08/13/2025 11:00 AM CDT Nurse Only Pedro Fatima [facility] for Transplantation and Clinical Regeneration in [place], [place] [address] [place] [address] Jessica Rousseau M.B.B.S. [address] [place] [phone] 08/13/2025 11:30 AM CDT Office Visit Pedro Fatima [facility] for Transplantation and Clinical Regeneration in [place], [place] [address] [place] [address] Jessica Rousseau M.B.B.S. [address] [place] [phone] 09/25/2025 10:30 AM CANDY PULLER Telemedicine [facility] in [place], [place] [address] [place] [address] Jessica Rousseau M.B.BKatalinaS. 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 [address] [place] [phone] PCP - General Family Medicine 04/25/23 documented as of this encounter
--- OUTSIDE RECORDS SUMMARY | 2025-07-19 18:18 | XMS_ITS | Encounter Summary ---
Author Organization [facility] Address [address] [place] [address] Care Team Providers Care Correctional Counselor/Case Manager Name Role Phone Renzo Andres M.D. Primary Care Provider [phone] Reason for Referral * Specialty Diagnoses / Procedures Referred By Estefania acosta Referred To Contact Diagnoses Transplant Bone Marrow Allogeneic (HCC) RST [facility] [address] [place] [address] Phone: tel: [facility] Referral ID Status Reason Start Date Expiration Date Visits Re quested Visits Authorized Encounter Details Date Type Department Care Team (Late st Contact Info) Description 06/30/2025 Orders Only [facility], [facility], Ninth Floor [address] [place] [address] Varghese Fields, R.N. Transplant Bone [...] things needed for daily living? No 06/24/2025 [facility] Utilities Answer [...] a [facility] place to live 06/24/2025 Education Answer Date Recorded What is the highest level of school you have completed or the highest degree you have received? Some college, no degree 04/24/2019 Comments No Sex and Gender Information Value Date Recorded Sex Assigned at Female 12/26/2018 8:37 PM ZINC CHLORIDE OPERATOR Legal Sex Female 2:43 PM ZINC CHLORIDE OPERATOR Gender Identity Female 12/26/2018 8:37 PM ZINC CHLORIDE OPERATOR Sexual Orientation Choose not to disclose 2020 3:46 PM CDT documented as of this encounter Plan of Treatment Upcoming Encounters Date Type Department Care Team (Late st Contact Info) Description 07/21/2025 11:00 AM CDT Telemedicine Department of Palliative Care in [place], [place] [address] [place] [phone] Meghan Osorio M.D. [address] [place] [phone] 07/22/2025 8:40 AM CDT Lab Department of Laboratory Medicine and Pathology, [facility] in [place], [place] [address] [place] [address] Becky Hernandez APRN, C.N.P., D.N.P. [address] [place] [phone] 07/22/2025 9:30 AM CDT Office Visit Pedro A[facility]ind [facility] for Transplantation and Clinical Regeneration in [place], [place] [address] [place] [address] Becky Hernandez APRN, C.N.P., D.N.P. [address] [place] [phone] 07/30/2025 2:00 PM CDT Appointment Division of Gastroenterology in [place], [place] [address] [place] [phone] Derrick Cruz Jr., M.D., M.S. [address] [place] [phone] 08/11/2025 9:00 AM CDT Nurse Only Section of Infectious Diseases in [place], [place] [address] [place] [phone] Jessica Rousseau M.B.B.S. [address] [place] [phone] 08/11/2025 1:00 PM CDT Clinical Support Department of Palliative Care in [place], [place] [address] [place] [address] Uma Aly APRN, C.NLuigi., M.S.N. [address] [place] [phone] 08/13/2025 10:00 AM CDT Lab Department of Laboratory Medicine and Pathology, [facility] in [place], [place] [address] [place] [address] Jessica Rousseau M.B.B.S. [address] [place] [phone] 08/13/2025 10:30 AM CDT Office Visit Pedro Fatima [facility] in [place], [place] [address] [place] [address] Jessica Rousseau M.B.B.S. [address] [place] [phone] 08/13/2025 11:00 AM CDT Nurse Only Pedro Fatima [facility] in [place], [place] [address] [place] [address] Jessica Rousseau M.B.B.S. [address] [place] [phone] 08/13/2025 11:30 AM CDT Office Visit Pedro Fatima [facility] in [place], [place] [address] [place] [address] Jessica Rousseau M.B.B.S. [address] [place] [phone] 09/25/2025 10:30 AM ZINC CHLORIDE OPERATOR Telemedicine [facility] Clinical Regeneration in [place], [place] [address] [place] [address] Jessica Rousseau M.B.BKatalinaSKatalina [address] [place] [address] Scheduled Referrals Name Type Priority Associated Diagnoses [...] Total Score: 2 12/10/19 25 2:46 PM ZINC CHLORIDE OPERATOR documented as of this encounter Care Teams Correctional Counselor/Case Manager Relationship Specialty Start Date End Date Renzo Andres M.D. [address] [place] [phone] PCP - General Family Medicine 04/25/23 documented as of this encounter
--- OUTSIDE RECORDS SUMMARY | 2025-07-19 18:18 | XMS_ITS | Encounter Summary ---
Author Organization [facility] Address [address] [place] [address] Care Team Providers Care Data Capture Clerk Name Role Phone Renzo Andres M.D. Primary Care Provider [phone] Reason for Referral * Outpatient (Routine) - Authorized Specialty Diagnoses / Procedures Referred By Contheidy t Referred To Contact Palliative Medicine Diagnoses Leukemia Myeloid Chronic BCR/ABL Positive Not Having Achieved Remission (HCC) Anxiety Generalized Disorder Uma Aly APRN, C.N.PKatalina, M.S.N. [address] [place] [phone] Phone: tel: fax: [facility] Referral ID Status Reason Start Date Expiration Date V isits Requested Visits Authorized [id number] Authorized 06/30/2025 12/30/2026 1 1 Scheduling Instructions In person, close to other palliative provider visit. Encounter Details Date Type Department Care Team (Late st Contact Info) Description 06/30/2025 Clinical Communication Department of Palliative Care in [place], [place] [address] [place] [phone] mUa Aly APRN, C.N.P., M.S.N. 200 [place] [address] Social History Tobacco Use Types Packs/Day Years [...] needed for daily living? No 06/24/2025 [facility] Utilities Answer Date Recorded In the past 12 months has [facility] electric, gas, oil, or water [...] Sex Assigned at Female 12/26/2018 8:37 PM TRACK INSPECTING SUPERVISOR Legal Sex Female 2:43 PM TRACK INSPECTING SUPERVISOR Gender Identity Female 12/26/2018 8:37 PM TRACK INSPECTING SUPERVISOR Sexual Orientation Choose not to disclose 2020 3:46 PM CDT documented as of this encounter Plan of Treatment Upcoming Encounters Date Type Department Care Team (Late st Contact Info) Description 07/21/2025 11:00 AM CDT Telemedicine Department of Palliative Care in [place], [place] [address] [place] [phone] Meghan Osorio M.D. [address] [place] [phone] 07/22/2025 8:40 AM CDT Lab Department of Laboratory Medicine and Pathology, [facility] in [place], [place] [address] [place] [phone] Becky Hernandez APRN, C.N.P., D.N.P. [address] [place] [phone] 07/22/2025 9:30 AM CDT Office Visit Pedro sanchez [facility] for Transplantation and Clinical Regeneration in [place], [place] [address] [place] [phone] Becky Hernandez APRN, C.N.P., D.N.P. [address] [place] [phone] 07/30/2025 2:00 PM CDT Appointment Division of Gastroenterology in [place], [place] [address] [place] [phone] Derrick Cruz Jr., M.D., M.S. [address] [place] [phone] 08/11/2025 9:00 AM CDT Nurse Only Section of Infectious Diseases in [place], [place] [address] [place] [address] Jessica Rousseau M.B.B.S. [address] [place] [phone] 08/11/2025 1:00 PM CDT Clinical Support Department of Palliative Care in [place], [place] [address] [place] [address] Uma Aly APRN, C.N.P., M.S.N. [address] [place] [phone] 08/13/2025 10:00 AM CDT Lab Department of Laboratory Medicine and Pathology, [facility], in [place], [place] [address] [place] [phone] Jessica Rousseau M.B.B.S. [address] [place] [phone] 08/13/2025 10:30 AM CDT Office Visit Pedro Fatima [place] [facility] Transplantation and Clinical Regeneration in [place], [place] [address] [place] [address] Jessica Rousseau M.B.B.S. [address] [place] [phone] 08/13/2025 11:00 AM CDT [facility] in [place], [place] [address] [place] [address] Jessica Rousseau M.B.B.S. [address] [place] [phone] 08/13/2025 11:30 AM CDT [facility] in [place], [place] [address] [place] [address] Jessica Rousseau M.B.B.S. [address] [place] [address] 09/25/2025 10:30 AM TRACK INSPECTING SUPERVISOR Telemedicine [facility] Transplantation and Clinical Regeneration in [place], [place] [address] [place] [address] Jessica Rousseau M.B.B.S. [address] [place] [address] Scheduled Referrals Name Type Priority Associated Diagnoses [...] Total Score: 2 12/10/19 25 2:46 PM TRACK INSPECTING SUPERVISOR documented as of this encounter Care Teams Data Capture Clerk Relationship Specialty Start Date End Date Renzo Andres M.D. [address] [place] [phone] PCP - General Family Medicine 04/25/23 documented as of this encounter
--- OUTSIDE RECORDS SUMMARY | 2025-07-19 18:18 | XMS_ITS | Encounter Summary ---
Author Organization [facility] Address [address] [place] [address] Care Team Providers Care Community Health Worker Name Role Phone Renzo Andres M.D. Primary Care Provider [phone] Encounter Details Date Type Department Care Team (Latest Contact Info) Description 07/01/2025 Clinical Communication Pedro Aravind [facility] for Transplantation and Clinical Regeneration in [place], [place] [address] [place] [address] Uma Goel, R.N. Social History Tobacco Use [...] things needed for daily living? No 07/02/2025 [facility] Utilities Answer Date Recorded In the past 12 months has th e electric, gas, oil, or water company threatened to shut off services in your home? No 07/02/2025 Depression Answer Date Recor ded PHQ-9 Total Score (max 27) 2 12/10 Housing Stability Answer Date Recorded What is your living situation today? I have a [facility] place to live 07/02/2025 Education Answer Date Recorded What is the highest level of school you have completed or the highest degree you have received? Some college, no degree 04/24/2019 Comments No Sex and Gender Information Value Date Recorded Sex Assigned at Female 12/26/2018 8:37 PM CREDIT COLLECTION SPECIALIST Legal Sex Female 2:43 PM CREDIT COLLECTION SPECIALIST Gender Identity Female 12/26/2018 8:37 PM CREDIT COLLECTION SPECIALIST Sexual Orientation Choose not to disclose 2020 3:46 PM CDT documented as of this encounter Plan of Treatment Upcoming Encounters Date Type Department Care Team (Late st Contact Info) Description 07/21/2025 11:00 AM CDT Telemedicine Department of Palliative Care in [place], [place] 200 [place] [address] Meghan Osorio M.D. 200 [place] [address] 07/22/2025 8:40 AM CDT Lab Department of Laboratory Medicine and Pathology, [facility], in [place], [place] [address] [place] [phone] Becky Hernandez APRN C.N.P., D.N.P. [address] [place] [phone] 07/22/2025 9:30 AM CDT Office Visit [facility] Aravind [facility] for Transplantation and Clinical Regeneration in [place], [place] [address] [place] [phone] Becky Hernandez APRN, C.N.P., D.N.P. [address] [place] [phone] 07/30/2025 2:00 PM CDT Appointment Division of Gastroenterology in [place], [place] [address] [place] [phone] Derrick Cruz Jr., M.D., M.S. [address] [place] [phone] 08/11/2025 9:00 AM CDT Nurse Only Section of Infectious Diseases in [place], [place] [address] [place] [phone] Jessica Rousseau M.B.B.S. [address] [place] [phone] 08/11/2025 1:00 PM CDT Clinical Support Department of Palliative Care in [place], [place] [address] [place] [address] Uma Aly APRN, C.N.P., M.S.N. [address] [place] [phone] 08/13/2025 10:00 AM CDT Lab Department of Laboratory Medicine and Pathology, [facility], in [place], [place] [address] [place] [address] Jessica Rousseau M.B.B.S. [address] [place] [phone] 08/13/2025 10:30 AM CDT [facility] in [place], [place] [address] [place] [address] Jessica Rousseau M.B.B.S. [address] [place] [phone] 08/13/2025 11:00 AM CDT Nurse Only Pedro [facility] Transplantation and Clinical Regeneration in [place], [place] [address] [place] [address] Jessica Rousseau M.B.B.S. [address] [place] [phone] 08/13/2025 11:30 AM CDT [facility] in [place], [place] [address] [place] [address] Jessica Rousseau M.B.B.S. [address] [place] [phone] 09/25/2025 10:30 AM CREDIT COLLECTION SPECIALIST Telemedicine [facility] [place] Transplantation and Clinical Regeneration in [place], [place] [address] [place] [address] Jessica Rousseau M.B.B.S. [address] [place] [phone] documented as of this encounter Visit Diagnoses Not on filedocumented in this encounter Additional Health Concerns Infection Onset Date Last Indicated Resolved Time Protective Environment 03/02/2023 03/02/2023 Assessment Noted Time PHQ-9 Depression Total Score: 2 12/10/19 25 2:46 PM CREDIT COLLECTION SPECIALIST documented as of this encounter Care Teams Community Health Worker Relationship Specialty Start Date End Date Renzo Andres M.D. [address] [place] [phone] PCP - General Family Medicine 04/25/23 documented as of this encounter
[2025-07-19 18:19] LABS: NT Pro B Type NatriureticPept* < 20 pg/mL (See Note)
[2025-07-19 18:20] LABS: PCR FLU A Negative PCR FLU A (Negative); PCR FLU B Negative PCR FLU B (Negative); PCR RSV Negative PCR RSV (Negative); SARS PCR* Negative SARS-CoV-2 (Negative)
[2025-07-19 18:44] VITALS: PULSE 95; O2SAT 98
== END 2025-07-19 18:56 | disposition home or self-care (01) ==
PROVIDERS: Emergency Provider Family Medicine; PCP Registered Nurse
DX: R07.89 Other chest pain (principal); R06.02 Shortness of breath
CPT/HCPCS: 36415; 71046; 80053; 82803; 83880; 84484; 85025; 85379; 86140; 87631; 94761; 99284

== ENCOUNTER 2025-08-09 13:23 | Emergency (ER) | payer MEDICARE, BC, SELFPAY ==
--- OUTSIDE RECORDS SUMMARY | 2025-06-24 14:59 | XMS_ITS | Encounter Summary ---
Author Organization [facility] Address [address] [place] [address] Care Team Providers Care Binding End Stitcher Name Role Phone Renzo Andres M.D. Primary Care Provider Encounter Details Date Type Department Care Team (Latest Contact Info) Description 06/24/2025 2:59 PM CDT - 06/27/2025 12:20 PM CDT Hospital Encounter [facility], Ninth Floor [address] [place] [address] Dani Diaz M.D. [address] [place] [address] Transplant Bone Marrow Allogeneic (HCC) (Primary Dx); Transplant Stem Cell (HCC); Pain Neuropathic; Reaction Drug Adverse Personal History; Leukemia Myeloid Chronic BCR/ABL Positive Remission (HCC); Abdominal Pain Discharge Disposition: Home or Self Care Social [...] things needed for daily living? No 06/24/2025 [facility] Utilities Answer Date Recorded In the past 12 months has th e electric, gas, oil, or water company threatened to shut off services in your home? No 06/24/2025 Depression Answer Date Recor ded PHQ-9 Total Score (max 27) 2 12/10 Housing Stability Answer Date Recorded What is your living situation today? I have a [facility] place to live 06/24/2025 Education Answer Date Recorded What is the highest level of school you have completed or the highest degree you have received? Some college, no degree 04/24/2019 Comments No Sex and Gender Information Value Date Recorded Sex Assigned at Female 12/26/2018 8:37 PM CARD SETTER Legal Sex Female 2:43 PM CARD SETTER Gender Identity Female 12/26/2018 8:37 PM CARD SETTER Sexual Orientation Choose not to disclose 2020 3:46 PM CDT documented as of this encounter Last Filed Vital Signs Vital Sign Reading Time Taken Comments Blood Pressure 139/100 06/27/2025 11:52 AM CDT Pulse 95 06/27/2025 11:52 AM CDT Temperature 36.8 C (98.2 F) 06/27/2025 11:52 AM CDT Respiratory Rate 18 06/27/2025 11:52 AM CDT Oxygen Saturation 98% 06/27/2025 11:52 AM CDT Inhaled Oxygen Concentration - - Weight 102 kg (225 lb 5 oz) 06/27/2025 9:20 AM C DT Height 172.2 cm (5' 7.8) 06/25/2025 12:56 PM CD T Body Mass Index 34.47 06/25/2025 12:56 PM CDT documented in this encounter Discharge Summaries * Carlee Armas APRN, C.N.P., D.N.P., M.S.N. - 06/27/2025 10:46 AM CDT DISCHARGE SUMMARY BRIEF OVERVIEW Hospital: [facility] Discharge Provider: Dani Diaz M.D. Primary Team: [facility] Primary Care Providers: Renzo Andres M.D. (General) [address] [place] [id number] Primary Care Provider Primary Care Provider Admission Date: 06/24/2025 Discharge Date: 06/27/2025 PRINCIPAL DIAGNOSIS Abdominal Pain SECONDARY DIAGNOSES Principal Problem: Abdominal Pain Active Problems: Leukemia Myeloid Chronic BCR/ABL Positive Not Having Achieved Remission (HCC) Depression Major Recurrent Moderate (HCC) Anxiety Generalized Disorder Transplant Bone Marrow Allogeneic (HCC) Pain Neuropathic Depressive Disorder Transplant Stem Cell (HCC) Nausea And Vomiting Resolved Problems: * No resolved hospital problems. * DISCHARGE DISPOSITION Home or Self Care [1] ACTIVE ISSUES REQUIRING FOLLOW UP Persistent abdominal pain- Outpatient GI consultation requested, scheduling pending OUTPATIENT FOLLOW UP Scheduled Appointments 07/03/2025 8:00 AM Yary Landa D.O. Palliative Medicine 07/15/2025 9:00 AM TXP PSYCHIATRY 01 [facility] Transplant 08/12/2025 10:40 AM IFD IMMUNIZATIONS 01 [facility] Infectious Diseases For appointment details refer to your Patient Appointment Guide. 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 She was admitted to inpatient BMT 06/24/2025 for management of ongoing diffuse abdominal pain. Of note, Ms Martinez has been experiencing abdominal pain since late April 2025 for which she has previously undergone evaluation with multiple CT Abd/Pelvis (obtained on 05/28 and 06/12) and upper GIendoscopy on 06/01/2025 without identifiable cause of pain. She was trialed on short Prednisone burst per Dr Rousseau, which was completed prior to hospitalization on 06/20/2025, though this did not improve her discomfort. Upon hospital admission, Ms Martinez underwent repeat CT Chest/Abdomen/Pelvis which was without diagnostic abnormality. She underwent transvaginal ultrasound on 06/25/2025 which demonstrated smaller than expected ovaries and possible uterine adenomyosis, though no sonographic correlation for patients pain. RUQ ultrasound was obtained on 06/25/2025 and demonstrated only diffuse hepatic steatosis. To this end, Ms Martinez underwent EGD/Flex Sig on 06/26/2025 demonstrating oral thrush, gastritis,non-bleeding gastric ulcer, and duodenitis. Biopsies were obtained for evaluation of possible GVHD,viral gastritis, and H.Pylori and are pending at the time of hospital dismissal. She will continue on Protonix twice daily for management of gastric ulcer, and she was initiated onNystatin swish and spit QID for 7 days for management of oral thrush. Her oral Budesonide was empirically increased to 6 mg PO daily while awaiting surgical pathology results. During her hospitalization, Palliative Medicine was consulted for symptom management. Mrs Martinez was continued on Dilaudid 2 mg PO PRN, which she will continue in the outpatient setting. In terms of follow-up, she will follow on [facility] on 06/30/2025 for review of surgical pathologyresults (scheduling is pending at the time of dismissal), and an outpatient consult for GI was placed for further recommendations regarding work-up and management of abdominal pain. She will proceed to CT A/P Angiogram Enterography as previously ordered with scheduling pending. Message sent to [facility] desk to facilitate this scheduling. Greater than 30 minutes were spent in the planning and coordination of this hospital dismissal. CONSULTS ORDERED DURING THIS ADMISSION IP CONSULT TO DIETITIAN IP CONSULT TO PSYCHIATRY & PSYCHOLOGY IP CONSULT TO PALLIATIVE CARE IP CONSULT TO MASSAGE THERAPY LIBRARY - PATIENT SERVICES (HOSPITAL) CONDITION AT DISCHARGE stable Discharge instructions were provided to the patient and caregiver(s). Total time spent in discharge services today: >30 minutes. documented in this encounter Discharge Instructions * Discharge Instructions* Angel Sol - 06/25/2025 7:03 AM CDT You were discharged from the [facility] [...] times a day. 60 tablet 11 04/29/2025 acetaminophen (TylenoL) 325 mg tablet Take 2 tablets (650 mg total) by mouth every 4 (four) hours as needed for mild pain or score 1-3 of 10. 06/13/2025 06/30/20 25 alum-mag hydroxide-simeth (Maalox) 200-200-20 mg/5 mL suspension Take 30 mL by mouth every 4 (four) hours as needed for indigestion (dyspepsia). 06/13/2025 06/30/20 25 budesonide (Entocort EC) [address] capsule Take 2 capsules (6 mg total) by mouth daily. 60 capsule 2 06/28/2025 07/06/20 25 buprenorphine (Butrans) 5 mcg/hourIndications :Chronic Pain/Nonacute Pain Place 1 patch on the skin once a week Indication: Chronic Pain/Nonacute Pain. 4 patch 06/19/2025 07/14/20 25 diphenhydrAMINE (BenadryL) 25 mg capsule Take 1 capsule (25 mg total) by mouth every 6 (six) hours as needed for itching. 06/13/2025 07/06/20 25 HYDROmorphone (Dilaudid) 1 mg/mL liquidIndications:C hronic Pain/Nonacute Pain Take 2 mL (2 mg total) by mouth every 6 (six) hours as needed for pain Indication: Chronic Pain/Nonacute Pain. 06/27/2025 07/02/20 25 hydrOXYzine (Atarax) 25 mg tabletIndications:T ransplant Stem Cell (HCC),Transplant Bone Marrow Allogeneic (HCC),Leukemia Myeloid Chronic BCR/ABL Positive Remission (HCC),Abdominal Pain Take 1 tablet (25 mg total) by mouth every 6 (six) hours as needed for anxiety. 30 tablet 1 06/27/2025 07/06/20 25 ibuprofen 400 mg tablet Take 1 tablet (400 mg total) by mouth every 6 (six) hours as needed for moderate pain or score 4-6 of 10. 06/13/2025 07/06/20 25 lidocaine (Lidoderm) 5 % adhesive patch,medicatedIndi cations:Transplant Bone Marrow Allogeneic (HCC) Place 1 patch on the skin daily. Apply to affected area . 30 patch 06/23/2025 07/06/20 25 loperamide (Imodium A-D) 2 mg capsule Take 1 capsule (2 mg total) by mouth every 2 (two) hours as needed for diarrhea. Take with occurrence of diarrhea. May take up to 16 mg, or 8 doses daily. 05/17/2025 07/06/20 25 nystatin (Mycostatin) 100,000 unit/mL suspensionIndicatio ns:Transplant Stem Cell (HCC),Transplant Bone Marrow Allogeneic (HCC),Leukemia Myeloid Chronic BCR/ABL Positive Remission [facility]),Abdominal Pain Swish and swallow 5 mL (500,000 Units total) 4 (four) times a day for 7 days. 140 mL 06/27/2025 07/06/20 25 pantoprazole (Protonix) 40 mg EC tablet Take 1 tablet (40 mg total) by mouth 2 (two) times a day before morning and evening meals. 60 tablet 1 06/27/2025 07/16/20 25 posaconazole (NoxafiL) [address] tabletIndications:L eukemia Myeloid Chronic BCR/ABL Positive Remission ([facility]),Transplant Bone Marrow Allogeneic ([facility]) Take 3 tablets (300 mg total) by mouth daily. 90 tablet 06/13/2025 07/16/20 25 prochlorperazine (Compazine) 10 mg tablet Take 1 tablet (10 mg total) by mouth every 6 (six) hours as needed for nausea. 30 tablet 1 05/20/2025 07/01/20 25 sennosides-docusate sodium (Senokot-S) 8.6-50 mg per tablet Take 1 tablet by mouth 2 (two) times a day. 60 tablet 1 06/27/2025 07/16/20 25 sulfamethoxazole-tr imethoprim (Bactrim) 400-80 mg per tabletIndications:T ransplant Bone Marrow Allogeneic (HCC),Leukemia Myeloid Chronic BCR/ABL Positive Not Having Achieved Remission (HCC) Take 1 tablet by mouth daily. 60 tablet 1 05/13/2025 07/29/20 25 documented as of this encounter Progress Notes * Carlee Armas APRN, C.N.P., D.N.P., M.S.N. - 06/27/2025 6:30 AM CDT SUBJECTIVE TRANSPLANT PHYSICIAN Dr. Jessica Rousseau, pager [phone]. HISTORY OF PRESENT ILLNESS Radha Martinez is a 35 y.o. 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 She was admitted to inpatient BMT 06/24/2025 for management of ongoing diffuse abdominal pain. She is currently day +199 post transplant. EVENTS OVER THE LAST 24 HOURS EGD and Flex Sig obtained yesterday afternoon with surgical pathology pending at this time. Ms Radha Martinez reports abdominal pain persists, though she notes severity is mildly improved from previous upon exam this morning. She notes pain is currently a 2 out of 10 in severity,though she notes brief episode of worsening pain last evening after experiencing diarrheal stools. She endorses pain continues to be most severe in the LLQ/ left periumbilical region. She denies nausea or vomiting, and she shares she remains able to eat and drink without impairment. Ms Martinez endorses experiencing three loose stools after bowel prep yesterday for endoscopic procedures. She shares she has not yet passed a stool yet this morning. The procedure results of EGD/Flex Sig were discussed, and Ms Martinez shares she would prefer to transition from Clotrimazole troches to Nystatin for ongoing treatment of oral thrush. She will continue on Protonix BID for noted small, superficial gastric ulcer. She is amenable to outpatient GI consultation for further recommendations of work-up/management of persistent abdominal pain. Ms Martinez is amenable to hospital dismissal this afternoon. She will follow on [facility] (orderspreviously placed) on 06/30/2025 for discussion of surgical pathology results. REVIEW OF SYSTEMS A 10-point review of systems is negative, except as noted above. OBJECTIVE I/O Intake/Output Summary (Last 24 hours) at 06/27/2025 1300 Last data filed at 06/27/2025 0921 Gross per 24 hour Intake 340 ml Output 2600 ml Net -2260 ml VITAL SIGNS Temperature: [36.8 ??C-36.9 ??C] 36.8 ??C Resp Rate: [12-18] 18 Blood Pressure: (126-152)/(74-100) 139/100 SpO2: [96 %-98 %] 98 % Pulse Rate: [83-107] 95 PHYSICAL EXAMINATION General: Nontoxic female in no acute distress. Lying comfortably in hospital bed during time of physical exam. Eyes: Anicteric sclera, EOMI, PERRLA Mouth: Oral mucosa moist, without noted ulceration or lesions Heart: Regular rate and rhythm. S1, S2. No murmur, gallops, or rubs. Lungs: Clear to auscultation bilaterally with non labored breathing pattern Abdomen: Soft, no distention; Bowel sounds present and active in all quadrants. Mild tenderness with light palpation to LUQ and LLQ, no rebound tenderness or guarding. Skin: Warm, dry, and intact. PIV to left forearm insertion site without noted erythema, drainage ortenderness to palpation. Extremities: Atraumatic, no deformity. No bilateral lower extremity edema or bilateral calf tenderness. Neuro: CN 2 through 12 grossly intact with appropriate speech and affect Mental: Alert and oriented to person, place, time, and situation KPS 80% DIAGNOSTICS I have reviewed the recent relevant Diagnostics Results from last 7 days Lab Units 06/27/25 03506/26/2552306/25/25 0035 HEMOGLOBIN g/dL 10.4* 11.1* 11.4* HEMATOCRIT % 32.9* 34.7* 36.0 RBC AUTO x10(12)/L 3.92 4.08 4.27 MCV fL 83.9 85.0 84.3 RBC DISTRIBUTION WIDTH AUTO % 14.4 14.4 14.5 WBC x10(9)/L 5.2 4.4 5.2 NEUTROPHILS AUTO x10(9)/L 3.80 3.18 4.01 PLATELETS AUTO x10(9)/L 159 169 196 Results from last 7 days Lab Units 06/27/25 0350 06/26/2552306/25/25 0035 SODIUM mmol/L 139 140 139 CHLORIDE mmol/L 105 103 103 BUN mg/dL 13 10 12 CREATININE mg/dL 0.73 0.77 0.90 CALCIUM mg/dL 9.0 9.2 9.3 ALBUMIN g/dL 3.9 4.1 4.2 BILIRUBIN TOTAL mg/dL <0.2 0.3 0.2 ALK PHOS U/L 88 80 99 ALT U/L 40 49* 63* AST U/L 18 24 38 GLUCOSE S mg/dL 121 103 133 ASSESSMENT / PLAN # Diffuse Abdominal Pain, worse to LLQ # Persistent Nausea and Vomiting since early 05/2025; Query GI GVHD - C-diff negative from 05/17. PRN Imodium as needed. - Infectious work-up with peripheral blood cultures from 05/17 N[facility]D. Lactate 1.6, nonelevated. - Initiate Budesonide 05/20/2025; increased to 6 mg daily 06/24/2025 - 05/28/25 CT abdomin/pelvis: no abnormal findings. - Repeat 06/12/25 CT revealed no acute abnormalities, moderate stool burden. - Plan per Dr. Rousseau on 05/28: start prednisone 60 mg daily. Tapered by 10 mg daily every 5 days. Completed 06/20/25 with no significant improvement in her symptoms. - 06/01 EGD with biopsy negative for GVHD - Continue on daily Compazine and Pantoprazole 40 mg po BID. - 06/24/2025 CT Abd/pelvis/chest, normal with previous resolution of the ground- glass opacities from 06/05/2025. - HCG negative 06/25/25. - 06/25 right upper quadrant ultrasound and transvaginal pelvic ultrasound unrevealing for etiology of abdominal pain; Noted hepatic steatosis. - EGD and Flex Sigmoidoscopy obtained 06/26/2025 demonstrating oral thrush, gastritis, non-bleedinggastric ulcer, and duodenitis. Pathology and viral staining pending. - GI pathogen panel ordered upon admission but has not been obtained yet as she has not had any more bowel movements. - Query whether constipation is contributing to ongoing abdominal pain, most notably as patient didnot have a bowel movement with colonoscopy prep. Will resume Senna-S PO BID as of 06/26/2025 while waiting pathology as above. - Will plan for outpatient GI consultation (ordered with scheduling pending) and outpatient CT abd/pelvis angiogram enterography # Oral Thrush - Noted per EGD from 06/26/2025 as noted above - Initiate Clotrimazole troches on 06/26/2025, transitioned to oral Nystatin per patient preferenceon 06/27/2025 (EOT: 07/03/2025) # Esophageal/Chest pain - resolved - Pain is sharp 5-7 x day, intermittent and resolves on its own - Cardiac work up at the local facility was negative for acute process - Etiology unclear possibly related to steroids (onset after starting Prednisone) and exacerbated by EGD. -06/07/[address] was negative for PE. She continues with chest pressure/pain. - 06/25 Echocardiogram to assess for pericardial effusion negative. Compared to the report of 11/05/2024 no significant change has occurred. Side by side comparison of images performed. 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 - Day +100 Peripheral sort chimerism 03/10/2025 CD3 fraction contains 60% donor DNA and CD33 fraction 100% contains 100% donor DNA. - Continue to check RT PCR BCR-ABL on peripheral blood every 6 weeks, most recently undetected on 06/23/25 - Peripheral sort chimerism on 04/29: CD33 100% donor DNA and 0% recipient DNA - Last BM Bx from 02/18/25 was normal, no BCR-ABL1 detected. - BM biopsy June 15, 2025- MRD negative # GVHD Prophylaxis - Received PTCy; MMF was stopped per protocol. -Tacrolimus discontinued 04/17/2025 ACUTE GVHD (CIBMTR CRITERIA) Current Severity 06/27/25 Skin Stage Stage 0 (No GVHD rash) Liver Stage Stage 0 (Normal bilirubin) Gut Stage Stage 0 (Diarrhea <500 mL/day) nausea Overall Grade Grade 0 (No acute GVHD) Change from previous evaluation: improved Maximum overall grade (and date): Late aGVHD: Other comments: Diagnostic tests: S/p EGD and Flex Sig 06/26/2025, pending Treatment : Budesonide Response to tt : CR # Antimicrobial Prophylaxis - Continues on Acyclovir, Penicillin VK, Bactrim, and Posaconazole. - It should be noted she received two doses of Shingrix already. # Insomnia - Continues on Melatonin 5 mg qHS. - Ativan on hold with buprenorphine patch on 05/28 # Peripheral neuropathy [...] - Hold CBD oral oil during transplant. - S/p Psychiatry consult 06/25/2025 without evidence of somatization process. Trial Atarax PRN for anxiety. 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 Has only peripheral vision in right eye. Wears glasses. - Followed by [facility] in [place] [employer], [place]. - Patient will notify team if any vision changes. # Blood Products # TACO - Requires infusion of platelets at a slower rate #CMV- last checked 06/03/2025 #EBV - last checked March 2025 Activity: PAMP Level 4 (walks frequently) VTE Prophylaxis: Enoxaparin 40 mg subcutaneous once daily Blood Transfusions: Patient signed [id number] on 11/03/2024. Surrogate Decision Maker: Significant Other, Charles Minor Code Status: FULL CODE Disposition: Ms Radha Martinez is deemed medically appropriate for hospital dismissal. She will follow with Dr Rousseau on [facility] on 06/30/2025 (ordered with scheduling pending at this time). Outpatient GI consultation and CT Abd/Pelvis angiogram enterography ordered and pending. CDT * Fuentes Antoine O.T., O.T.D. - 06/26/2025 4:44 PM CDT 06/26/25 1644 Reason Therapy Missed Reason Therapy Missed Receiving other care * Reginald Peacockjeremy Stiles - 06/26/2025 2:50 PM CDT Palliative Medicine Music Therapy Follow-up Note Patient: Radha Martinez Age:35 y.o. Location: [place] [address] Date of Encounter: 06/26/2025 Time of Encounter: 1:30pm Visit Duration: 30 min Reason(s) of encounter: Anxiety, Coping, and Introduction of Services Summary: Upon arrival, Ms. Martinez (Radha) was alert-awake, seated in bed; no visitors were present. Radha shared that she comes from a very musical family (grandmother, mother, aunt, etc) and that she played piano as a kid. She identifies that music is very important to her, and recognizes thatit has a strong impact on her mood. She welcomes music to promote relaxation and regulation, sharing that it helps with her anxiety when she is intentional about music listening. Therapeutic discussion facilitated about the benefits of music to influence and validate mood. Music therapist provided live, patient-preferred music (Steven Mac, Classic rock). Radha closed her eyes, slowed respirati ons, and mouthed the words along to familiar songs. She expressed openness to follow-up. Music Therapy Follow-up Music Used: Songbird, Stay Gentle Music Therapy interventions: Introduction of music therapy service and overview of resources, Music-assisted relaxation, Psychoeducation/Therapeutic Discussion, Song choice, Therapeutic singing, Use of music to access memories/validate life, and Use of music meaningful to patient Music Therapy outcomes: Decrease anxiety or emotional distress , Enhanced coping, Improvement in mood/affect, Increase involvement in meaningful activities to enhance positive experience, Increase opportunities for emotional expressivity, and Increased relaxation response Plan / Recommendations: Music therapy will continue to support Ms. Martinez as a part of the Palliative Medicine plan of care. Mary Peacock [facility] Palliative Care Music Therapist * Dani Diaz M.D. - 06/26/2025 10:53 AM CDT This is an attestation note. I saw and evaluated the patient participating in the pagan portions of the in-patient visit. I discussed the case with our ANUPAM team during bedside rounds. Please refer to their note for full details. In short, patient is a 35-year-old woman with previous medical history significant for anxiety, CML, who is status post a matched unrelated donor allogeneic stem cell transplant on December 10, 2024. Patient was admitted on 06/24/2025 for persistent and progressive abdominal pain. Today is day +198 post-transplant. Hospital stay so far has been uncomplicated. SUBJECTIVE Last 24h: No major events. Afebrile, clinically, and hemodynamically stable. ASSESSMENT / PLAN PLAN BY ACTIVE MEDICAL PROBLEMS #1 CML status post allogeneic stem cell transplant #2 Abdominal pain Abdominal ultrasound and transvaginal ultrasound were unrevealing. Pain is unchanged. Plan for today is EGD +flex sig (unsuccessful prep, therefore full colonoscopy can not be performed). Differential diagnosis at this time consists of GVHD, constipation, functional pain, and less likely partial small bowel obstruction. We will continue to address symptoms and provide full supportive care. * Uma Aly APRN, C.N.P., M.S.N. - 06/26/2025 10:49 AM CDT [facility] PALLIATIVE CARE PROGRESS NOTE PATIENT: Radha Martinez; 35 y.o.female LOCATION TYPE: Hospital - General Floor LOCATION: 420/420-P CHIEF COMPLAINT/REASON FOR VISIT Symptom Management SUBJECTIVE Ms. Martinez while resting in bed, she shares some abdominal cramping as she prepares for her colonoscopy. Aside from this no worsening symptom burden. She was able to have acupressure beads placed yesterday and utilize these for anxiety last evening which she felt was very helpful. OBJECTIVE PHYSICAL EXAMINATION Temperature: [36.5 ??C-36.8 ??C] 36.5 ??C Resp Rate: [18-20] 20 Blood Pressure: (106-140)/(89-99) 130/89 SpO2: [95 %-99 %] 98 % Height: [172.2 cm] 172.2 cm Weight: [101 kg-102 kg] 102 kg BMI (Calculated): [34 kg/m??-34.6 kg/m??] 34.6 kg/m?? Pulse Rate: [80-100] 94 Physical Exam General: Fatigued; no acute distress Skin: Good turgor, no rash Eyes: Conjunctiva clear, sclera non-icteric Lungs: no use of accessory muscles of respiration, non-labored breathing pattern. Extremities: No lower extremity edema noted. Neuro/Psychiatric: Oriented X3, intact recent and remote memory, judgment and insight, congruent mood and affect. PALLIATIVE FUNCTIONAL ASSESSMENT: 50% Mainly Sit/Lie. Unable to do any work/Extensive disease. Considerable self- care assistance. Normal or reduced oral intake. Full consciousness/confusion. DIAGNOSTICS MEDICATIONS/DIAGNOSTICS: Relevant results in the last 24 hours include: NA ASSESSMENT / PLAN #1 Leukemia Myeloid Chronic BCR/ABL Positive Not Having Achieved Remission (HCC) #2 Depression Major Recurrent Moderate (HCC) #3 Anxiety Generalized Disorder #4 Transplant Bone Marrow Allogeneic (HCC) #5 Pain Neuropathic #6 Depressive Disorder #7 Transplant Stem Cell (HCC) #8 Nausea And Vomiting #9 Abdominal Pain #10 Goals of care, advance care planning, complex medical decision making #11 Palliative Care Z51.5 SUMMARY: Ms. Martinez is seen this morning, sharing she continues to finish preparing for colonoscopy. She is reflective on our visit yesterday, sharing great benefits from acupressure beads, and massage therapy session. We will see if she is available for reiki from our IDT. Thank you for the opportunity to participate in caring for Ms. Martinez. We will continue to followalong. Please do not hesitate to contact Palliative Medicine M ([phone]) with any questions or concerns. I have discussed and reviewed ongoing plan of care with my collaborating physician Dr. Foote. We will not plan to see Ms. Martinez over the weekend, however if any needs arise please do not hesitate to contact our service pager. RECOMMENDATIONS: No new recommendations Total time spent was 30 minutes. Uma Aly APRN, C.NDustin, M.S.N. * Carlee Armas APRN, C.N.P., Isak, M.S.N. - 06/26/2025 6:37 AM CDT SUBJECTIVE TRANSPLANT PHYSICIAN Dr. Jessica Rousseau, pager [phone]. HISTORY OF PRESENT ILLNESS Radha Martinez is a 35 y.o. 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 She was admitted to inpatient BMT 06/24/2025 for management of ongoing diffuse abdominal pain. She is currently day +198 post transplant. EVENTS OVER THE LAST 24 HOURS No acute events overnight. Upon exam this morning, Ms Radha Martinez endorses ongoing abdominal pain, primarily to LLQ region, which she notes is unchanged. She continues to note her pain is approximately a 5 out of10 in severity, and she shares she has not identified any aggravating or relieving factors. Of note, she received colonoscopy prep overnight, though has not a bowel movement as of approximately 0900 this morning. She shares her last bowel movement was prior to hospital admission on 06/24/2025. She notes her appetite has not been impacted by abdominal pain, and she continues to eat and drink without impairment. Ms aMrtinez remains afebrile and denies additional acute complaints. Of note, due to incomplete colonoscopy prep, will transition to Flex Sigmoidoscopy this morning. REVIEW OF SYSTEMS A 10-point review of systems is negative, except as noted above. OBJECTIVE I/O Intake/Output Summary (Last 24 hours) at 06/26/2025 1326 Last data filed at 06/26/2025 1141 Gross per 24 hour Intake 538.55 ml Output -- Net 538.55 ml VITAL SIGNS Temperature: [36.5 ??C-36.9 ??C] 36.9 ??C Heart Rate: [76-87] 87 Resp Rate: [12-20] 14 Blood Pressure: (106-153)/(85-101) 153/94 SpO2: [92 %-100 %] 100 % Pulse Rate: [73-100] 88 PHYSICAL EXAMINATION General: Nontoxic female in no acute distress. Eyes: Anicteric sclera, EOMI, PERRLA Mouth: Oral mucosa moist, without noted ulceration or lesions Heart: Regular rate and rhythm. S1, S2. No murmur, gallops, or rubs. Lungs: Clear to auscultation bilaterally with non labored breathing pattern Abdomen: Soft, no distention; Bowel sounds present and active in all quadrants. Mild tenderness with light palpation to LUQ and LLQ, no rebound tenderness or guarding. Skin: Warm, dry, and intact. PIV to left forearm insertion site without noted erythema, drainage ortenderness to palpation. Extremities: Atraumatic, no deformity. No bilateral lower extremity edema or bilateral calf tenderness. Neuro: CN 2 through 12 grossly intact with appropriate speech and affect Mental: Alert and oriented to person, place, time, and situation KPS 80% DIAGNOSTICS I have reviewed the recent relevant Diagnostics Results from last 7 days Lab Units 06/26/2552306/25/255 06/23/25 0818 HEMOGLOBIN g/dL 11.1* 11.4* 12.0 HEMATOCRIT % 34.7* 36.0 37.7 RBC AUTO x10(12)/L 4.08 4.27 4.46 MCV fL 85.0 84.3 84.5 RBC DISTRIBUTION WIDTH AUTO % 14.4 14.5 14.3 WBC x10(9)/L 4.4 5.2 3.6 NEUTROPHILS AUTO x10(9)/L 3.18 4.01 2.43 PLATELETS AUTO x10(9)/L 169 196 182 Results from last 7 days Lab Units 06/26/2552306/25/25 0035 06/23/25 0818 SODIUM mmol/L 140 139 139 CHLORIDE mmol/L 103 103 -- BUN mg/dL 10 12 10 CREATININE mg/dL 0.77 0.90 0.91 CALCIUM mg/dL 9.2 9.3 9.4 ALBUMIN g/dL 4.1 4.2 4.3 BILIRUBIN TOTAL P mg/dL -- -- 0.2 BILIRUBIN TOTAL mg/dL 0.3 0.2 -- ALK PHOS U/L 80 99 115* ALT U/L 49* 63* 75* AST P U/L -- -- 54* AST U/L 24 38 -- GLUCOSE mg/dL -- -- 153* GLUCOSE S mg/dL 103 133 -- ASSESSMENT / PLAN # Diffuse Abdominal Pain, worse to LLQ # Persistent Nausea and Vomiting since early 05/2025; Query GI GVHD - C-diff negative from 05/17. PRN Imodium as needed. - Infectious work-up with peripheral blood cultures from 05/17 NGTD. Lactate 1.6, nonelevated. - Initiate Budesonide 05/20/2025; increase to 6 mg daily 06/24/2025 - 05/28/25 CT abdomin/pelvis: no abnormal findings. - Repeat 06/12/25 CT revealed no acute abnormalities, moderate stool burden. - Plan per Dr. Rousseau on 05/28: start prednisone 60 mg daily. Tapered by 10 mg daily every 5 days. Completed 06/20/25 with no significant improvement in her symptoms. - 06/01 EGD with biopsy negative for GVHD - Continue on daily Compazine and Pantoprazole 40 mg po BID. - 06/24/2025 CT Abd/pelvis/chest, normal with previous resolution of the ground- glass opacities from 06/05/2025. - HCG negative 06/25/25. - 06/25 right upper quadrant ultrasound and transvaginal pelvic ultrasound unrevealing for etiology of abdominal pain; Noted hepatic steatosis. - EGD and Flex Sigmoidoscopy obtained 06/26/2025 demonstrating oral thrush, gastritis, non-bleedinggastric ulcer, and duodenitis. Pathology and viral staining pending. - CT enterography ordered for Sunday06/27/2025 if workup above is unrevealing. - Consider GI consult once workup has been completed. - GI pathogen panel ordered upon admission but has not been obtained yet as she has not had any more bowel movements. - Query whether constipation is contributing to ongoing abdominal pain, most notably as patient didnot have a bowel movement with colonoscopy prep. Will resume Senna-S PO BID as of 06/26/2025 while waiting pathology as above. # Oral Thrush - Noted per EGD from 06/26/2025 as noted above - Initiate Clotrimazole troches x 7 days (EOT: 07/02/2025) # Esophageal/Chest pain - resolved - Pain is sharp 5-7 x day, intermittent and resolves on its own - Cardiac work up at the local facility was negative for acute process - Etiology unclear possibly related to steroids (onset after starting Prednisone) and exacerbated by EGD. -06/07/[address] was negative for PE. She continues with chest pressure/pain. - 06/25 Echocardiogram to assess for pericardial effusion negative. Compared to the report of 11/05/2024 no significant change has occurred. Side by side comparison of images performed. 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 - Day +100 Peripheral sort chimerism 03/10/2025 CD3 fraction contains 60% donor DNA and CD33 fraction 100% contains 100% donor DNA. - Continue to check RT PCR BCR-ABL on peripheral blood every 6 weeks, most recently undetected on 06/23/25 - Peripheral sort chimerism on 04/29: CD33 100% donor DNA and 0% recipient DNA - Last BM Bx from 02/18/25 was normal, no BCR-ABL1 detected. - BM biopsy June 15, 2025- MRD negative # GVHD Prophylaxis - Received PTCy; MMF was stopped per protocol. -Tacrolimus discontinued 04/17/2025 ACUTE GVHD (CIBMTR CRITERIA) Current Severity 06/26/25 Skin Stage Stage 0 (No GVHD rash) Liver Stage Stage 0 (Normal bilirubin) Gut Stage Stage 0 (Diarrhea <500 mL/day) nausea Overall Grade Grade 0 (No acute GVHD) Change from previous evaluation: improved Maximum overall grade (and date): Late aGVHD: Other comments: Diagnostic tests: S/p EGD and Flex Sig 06/26/2025, pending Treatment : Budesonide Response to tt : CR # Antimicrobial Prophylaxis - Continues on Acyclovir, Penicillin VK, Bactrim, and Posaconazole. - It should be noted she received two doses of Shingrix already. # Insomnia - Continues on Melatonin 5 mg qHS. - Ativan on hold with buprenorphine patch on 05/28 # Peripheral neuropathy [...] - Hold CBD oral oil during transplant. - S/p Psychiatry consult 06/25/2025 without evidence of somatization process. Trial Atarax PRN for anxiety. 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 Has only peripheral vision in right eye. Wears glasses. - Followed by [facility] in [place] [employer], [place]. - Patient will notify team if any vision changes. # Blood Products # TACO - Requires infusion of platelets at a slower rate #CMV- last checked 06/03/2025 #EBV - last checked March 2025 Activity: PAMP Level 4 (walks frequently) VTE Prophylaxis: Enoxaparin 40 mg subcutaneous once daily Blood Transfusions: Patient signed [id number] on 11/03/2024. Surrogate Decision Maker: Significant Other, Charles Minor Code Status: FULL CODE Disposition: Ms Radha Martinez will remain inpatient for ongoing management of the abovecomplications and toxicities CDT * Lela Matta BCTMB - 06/25/2025 3:12 PM CDT 06/25/25 1511 [facility] Therapy Provided Massage Therapy Seen By Massage Therapist Consult Purpose Stress management Pre-Assessment IMH Treatment Previously Used Yes Integrative Treatment Primary site Neck;Back Primary Technique Jordanian massage Position used Left;Side-lying Massage Pressure Mild Treatment Status Treatment Completed Treatment Start Time 1440 Treatment Stop Time 1510 Treatment Length (min) 30 Massage therapy info/consult held with patient. Radha Martinez verbally consents to massage therapy. Jordanian massage provided to back and neck to promote circulation, relaxation, and well being. Upon completion, Ms. Martinez appears too be comfortable. Nursing must place a new order uponpatient follow-up requests. Products Used: Jojoba and Lavender Essential Oil * Dani Diaz M.D. - 06/25/2025 10:49 AM CDT This is an attestation note. I saw and evaluated the patient participating in the pagan portions of the in-patient visit. I discussed the case with our ANUPAM team during bedside rounds. Please refer to their note for full details. In short, patient is a 35-year-old woman with previous medical history significant for anxiety, CML, who is status post a matched unrelated donor allogeneic stem cell transplant on December 10, 2024. Patient was admitted on 06/24/2025 for persistent and progressive abdominal pain. Today is day +197 post-transplant. Hospital stay so far has been uncomplicated. SUBJECTIVE Last 24h: No major events. Afebrile, clinically, and hemodynamically stable. ASSESSMENT / PLAN PLAN BY ACTIVE MEDICAL PROBLEMS #1 CML status post allogeneic stem cell transplant #2 Abdominal pain Her pain has been present for approximately 4 weeks in is reported to be progressive. It is locatedto the left of her umbilicus and there are no clear triggers for it. Since the pain started she hashad a total of 3 CT scans of the abdomen and pelvis with IV contrast which failed to disclose a clear explanation for her pain. EGD was completed here at [facility] on June 01, 2025 and was also normal. She was admitted yesterday because of progressive pain. We will plan to obtain a repeat upper endoscopy and full colonoscopy with the goal of trying to rule out, to the degree possible gut GVHD. We will also obtain right upper quadrant abdominal ultrasound and pelvic ultrasound. If all these tests are negative, we may consider CT enterography to look for small bowel obstruction. In parallel, we have consulted psychiatry to evaluate the possibility that her anxiety disorder could be related to her abdominal pain. Otherwise, we will continue supportive care. * Racquel Candelario APRN, C.N.P. - 06/25/2025 6:50 AM CDT SUBJECTIVE Ms. Radha Martinez is a 35 y.o. female with a past medical history significant for Chronic Myeloid Leukemia. 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 Patient was admitted to the inpatient BMT service on 06/24/2025 secondary to ongoing diffuse abdominal pain. Currently Day +197. Events over the past 24 hours: Overall abdominal pain is stable since admission. Not really improving but not getting worse. Stilllocated in the suprapubic and left and right lower quadrant areas. Mild nausea but relieved with Compazine. Otherwise has been afebrile and denies any difficulty drinking/eating or taking her pills, denies any dizziness or lightheadedness, breathing changes, chest pain/pressure/palpitations, extra swelling, or any abnormal bleeding at this timeframe. The chest pain she had a couple of weeks ago has improved but she does say it sporadically returns occasionally. She had some looser stools upon admissionso a GI pathogen panel was ordered however she has not had no bowel movements since then. Review of Systems REVIEW OF SYSTEMS As noted above. OBJECTIVE VITAL SIGNS Height: 172.2 cm, Weight: 103 kg, BMI (Calculated): 34.7 kg/m??, Blood Pressure: 129/82, Pulse Rate: 83, Resp Rate: 15, Temperature: 36.6 ??C, SpO2: 98 % Admission Weight: 103 kg No intake or output data in the 24 hours ending 06/25/25 0651 Physical Exam General: Patient is alert, oriented, and in no acute distress. Skin: No acute rash. The LTCVC catheter is clean and intact without evidence of infection. Head: Atraumatic. Eyes: Anicteric. ENT: No mucositis or thrush. Heart: Regular rate and rhythm. S1, S2 heard. No murmur, rubs, gallop, or click. Lungs: Clear bilaterally. Abdomen: Soft, nontender, nondistended with normal active bowel sounds. Extremities: No peripheral edema or calf tenderness noted. KPS: 90 Recent Results (from the past 24 hours) CBC with Differential, Blood Collection Time: 06/25/25 12:35 AM Result Value Hemoglobin 11.4 (L) Hematocrit 36.0 Erythrocytes 4.27 MCV 84.3 RBC Distrib Width 14.5 Platelet Count 196 Leukocytes 5.2 Neutrophils 4.01 Lymphocytes 0.74 (L) Monocytes 0.37 Eosinophils 0.09 Basophils 0.03 Comprehensive Metabolic Panel Collection Time: 06/25/25 12:35 AM Result Value Potassium, S 4.9 Sodium, S 139 Chloride, S 103 Bicarbonate, S 23 Anion Gap 13 BUN (Blood Urea Nitrogen), S 12 Creatinine 0.90 Estimated GFR (eGFR) 85 Calcium, Total, S 9.3 Glucose, S 133 Protein, Total, S 6.9 Albumin, S 4.2 Aspartate Aminotransferase (AST), S 38 Alkaline Phosphatase, S 99 Alanine Aminotransferase (ALT), S 63 (H) Bilirubin, Total, S 0.2 Magnesium Collection Time: 06/25/25 12:35 AM Result Value Magnesium, S 2.3 Phosphorus Inorganic Collection Time: 06/25/25 12:35 AM Result Value Phosphorus (Inorganic), S 4.1 ASSESSMENT / PLAN # Abdominal Pain, worse to LLQ # Persistent Nausea and Vomiting since early 05/2025; Query GI GVHD # Diarrhea/loose stools - C-diff negative from 05/17. PRN Imodium as needed. - Infectious work-up with peripheral blood cultures from 05/17 NGTD. Lactate 1.6, nonelevated. - 05/28/25 CT abdomin/pelvis: no abnormal findings. Repeat 06/12/25 CT revealed no acute abnormalities, moderate stool burden. - Plan per Dr. Rousseau on 05/28: start prednisone 60 mg daily. Tapered by 10 mg daily every 5 days. Completed 06/20/25 with no significant improvement in her symptoms. - 06/01 EGD with biopsy negative for GVHD - Continue on daily Compazine and Pantoprazole 40 mg po BID. - 06/24/2025 CT Abd/pelvis/chest, normal with previous resolution of the ground- glass opacities from 06/05/2025. - HCG negative 06/25/25. - EGD and colonoscopy 05/26/2025, pending. Currently on clear liquid diet but will start movie prepthis evening. - 06/25 right upper quadrant ultrasound and transvaginal pelvic ultrasound, pending. - CT enterography ordered for Sunday06/27/2025 if workup above is unrevealing. - Consider GI consult once workup has been completed. - GI pathogen panel ordered upon admission but has not been obtained yet as she has not had any more bowel movements. # Esophageal/Chest pain - resolved - Pain is sharp 5-7 x day, intermittent and resolves on its own - Cardiac work up at the local facility was negative for acute process - Etiology unclear possibly related to steroids (onset after starting Prednisone) and exacerbated by EGD. -06/07/[address] was negative for PE. She continues with chest pressure/pain. - Initiate Budesonide 05/20/2025; increase to 6 mg daily 06/24/2025 - 06/25 Echocardiogram to assess for pericardial effusion negative. Compared to the report of 11/05/2024 no significant change has occurred. Side by side comparison of images performed. 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 - Day +100 Peripheral sort chimerism 03/10/2025 CD3 fraction contains 60% donor DNA and CD33 fraction 100% contains 100% donor DNA. - Continue to check RT PCR BCR-ABL on peripheral blood every 6 weeks undetected on 06/23/25 - Peripheral sort chimerism on 04/29: CD33 100% donor DNA and 0% recipient DNA - Last BM Bx from 02/18/25 was normal, no BCR-ABL1 detected. - BM biopsy June 15, 2025- MRD negative # GVHD Prophylaxis - Received PTCy; MMF [...] Acyclovir, Penicillin VK, Bactrim, and Posaconazole. - It should be noted she received two doses of Shingrix already. # Insomnia - Continues on Melatonin 5 mg qHS. - Ativan on hold with buprenorphine patch on 05/28 # Peripheral neuropathy [...] - Hold CBD oral oil during transplant. - 06/25 Consult upon admission, pending. 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 Has only peripheral vision in right eye. Wears glasses. - Followed by [facility] in [place], [place]. - Patient will notify team if any vision changes. # Blood Products # TACO - Requires infusion of platelets at a slower rate #CMV- last checked 06/03/2025 #EBV - last checked March 2025 # Disposition Ms. Radha Martinez was admitted to the inpatient BMT service for workup of ongoing abdominal pain. * Tara Summers R.N. - 06/24/2025 4:28 PM CDT Patient had been educated on the use of bed and chair alarms in fall prevention. Patient is currently performing all ADL's independently. Patient refuses bed/chair alarm at this time. documented in this encounter H&P Notes * Mckenzie Melvin APRN, C.N.P., D.N.P. - 06/24/2025 4:08 PM CDT SUBJECTIVE CHIEF COMPLAINT Ms. Radha Martinez is a 35 y.o. female with a past medical history significant for Chronic Myeloid Leukemia. 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 Patient was admitted to the inpatient BMT service on 06/24/2025 secondary to ongoing diffuse abdominal pain. Currently Day +196. HISTORY OF PRESENT ILLNESS ONC General HPI Ms. Martinez is a 35 y.o. 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 At the time of diagnosis, there was grade 3 reticulin fibrosis noted. 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 The BCR-ABL1 P [...] t(9;22) metaphases. NGS is positive for ASXL1 p.[id number]*12 (20%) and p.Nid151* (3%). 06/17/2024: feeling quite symptomatic since the initiation of bosutinib with fatigue, diarrhea, nausea, and vomiting. 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 Pretransplant Evaluation Cardiac ECG 12/18/24 was normal sinus rhythm with QTc 435 [...] Access [place] CVC placed on 12/03/24 by [facility]. Social Work Seen and cleared on 10/29/24 [...] prophylaxis: Ursodiol 600 mg two times daily. [facility]: [id number] [...] recovery. Enterobacter cloacae UTI, treated with Ciprofloxacin - Admitted 05/28-05/29/25 for nausea. Started on Prednisone 60mg daily. EGD completed 06/01/25-negative for GVHD. - Admitted 06/12-06/13/25 for recurrent abdominal pain. CT Abd with evidence of moderate colonic stool burden. She was started on Senna and Colace. - 6 ED encounters in the month of May 2025 secondary to abdominal pain/nausea. Interval History: Ms. Radha Martinez presents for admission to the inpatient BMT service secondary to ongoing abdominal pain. She was seen yesterday on [place] [address] Rousseau. Patient reports abdominal pain has been ongoing for about a month. It waxes and wanes but is now constant. She describes the painas sharp and deep in nature. Pain ranges from a 3 to a 9 in short periods of time. She cannot correlate any precipitating factors. Denies relief or change in pain with passing flatus or stool. Finds some relief of pain with use of oral dilaudid. Of note, patient is also utilizing a butrans patch for bilateral lower extremity pain. This is being managed with the palliative care team. Endorses ongoing nausea as well with several episodes of emesis last evening. She has found compazine beneficial for the nausea. Reports stools are soft. Reports drinking well, mostly water or tea. She notes solid food intake has fluctuated with the severity of the pain. Patient endorses ongoing anxiety, especially related to ongoing pain and lack of answers regarding etiology and plan of care. Per Dr. Rousseau, will complete CT imaging to rule out obstruction or other structural etiology for the pain. Obtain EGD/Flex Sig and collect GI Pathogen Panel for nausea and diarrhea. Consult Palliative Medicine for ongoing coping strategies and Psychiatry related to anxiety. Review of Systems REVIEW OF SYSTEMS A 10 point review of systems was completed and negative except as noted above. The following portions of the patient's history were reviewed and updated as appropriate: allergies, current medications, family history, medical history, social history, surgical history, and problem list. Current Medications[1] Current Outpatient Medications on File Prior to Encounter Medication Sig Last Dose/Taking acyclovir (Zovirax) 400 mg tablet Take 1 tablet (400 mg total) by mouth 2 (two) times a day. 06/24/2025 Morning ARIPiprazole (Abilify) 10 mg tablet Take 1 tablet (10 mg total) by mouth daily. Dose change 12/02/2024 06/23/2025 Evening budesonide (Entocort EC) [address] capsule Take 1 capsule (3 mg total) by mouth daily. 06/24/2025 Morning buprenorphine (Butrans) 5 mcg/hour Place 1 patch on the skin once a week Indication: Chronic Pain/Nonacute Pain. Past Week cholecalciferol (Vitamin D3) 50 mcg (2,000 Unit) tablet Take 50 mcg by mouth daily. 06/24/2025 DULoxetine (Cymbalta) [address] capsule Take 2 capsules (120 mg total) by mouth daily. 06/23/2025 Evening HYDROmorphone (Dilaudid) 1 mg/mL liquid Take 0.5 mL (0.5 mg total) by mouth daily as needed for pain Indication: Chronic Pain/Nonacute Pain. 06/23/2025 Bedtime lidocaine (Lidoderm) 5 % adhesive patch,medicated Place 1 patch on the skin daily. Apply to affected area . 06/24/2025 Morning loperamide (Imodium A-D) 2 mg capsule Take 1 capsule (2 mg total) by mouth every 2 (two) hours as needed for diarrhea. Take with occurrence of diarrhea. May take up to 16 mg, or 8 doses daily. 06/23/2025 Evening melatonin 5 mg tablet Take 5 mg by mouth at bedtime. 06/23/2025 Bedtime ondansetron ODT (Zofran-ODT) 4 mg disintegrating tablet Dissolve 1-2 tablets (4- 8 mg total) in the mouth every 8 (eight) hours as needed for nausea or vomiting. 06/24/2025 Morning penicillin V potassium (Veetids) 500 mg tablet Take 1 tablet (500 mg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 as evidenced by ability to recognize their symptoms,awareness of illness, emotional awareness and connection to current state, awareness of situation & chain of events leading to consequences, and minimization. Judgement was good as evidenced by ability to rationally discuss treatment options, sequence leading to current state, cooperation with treatment, treatment adherence, and future plans. Suicide Risk Assessment Based on available record review and [id number] assessment, the estimated risk of Ms. Martinez intentionally ending her life by suicide in the immediate future appears low. Access to Firearms: In light of the assessment of risk as noted above, this is not a current concern. At this time, Radha Martinez does not appear to meet criteria for [place]'s Red Flag Law reporting requirements. Diagnostics I have reviewed diagnostic data completed at the time of evaluation. Laboratory studies: Lab Results Component Value Date WBC 5.2 06/25/2025 HGB 11.4 (L) 06/25/2025 HCT 36.0 06/25/2025 MCV 84.3 06/25/2025 PLT 196 06/25/2025 Lab Results Component Value Date NA 139 06/25/2025 KSERUM 4.9 06/25/2025 KPLASMA 4.4 05/08/2025 EXTK 4.7 01/10/2022 CL 103 06/25/2025 BICARB 23 06/25/2025 CREATININE 0.90 06/25/2025 EGFRBLKAA >90 06/22/2022 EGFRNONBLKAA >90 06/22/2022 EGFR 85 06/25/2025 BUN 12 06/25/2025 ANIONGAP 13 06/25/2025 GLUCOSE 133 06/25/2025 GLUCOSEPOC 98 06/25/2019 CALCIUM 9.3 06/25/2025 Lab Results Component Value Date EGFR 85 06/25/2025 EGFRNONBLKAA >90 06/22/2022 EGFRBLKAA >90 06/22/2022 Lab Results Component Value Date ALT 63 (H) 06/25/2025 AST 38 06/25/2025 ALKPHOS 99 06/25/2025 BILITOT 0.2 06/25/2025 Lab Results Component Value Date TSH 1.8 03/24/2025 Lab Results Component Value Date SEDRATE 27 (H) 03/13/2022 Lab Results Component Value Date CRP 3.8 03/13/2022 Lab Results Component Value Date HCGQUANTPREG <0.5 06/25/2025 Lab Results Component Value Date CLARITYU Clear 01/09/2025 COLORU Yellow 01/09/2025 RBCU 3-10 (A) 01/09/2025 NITRITEU Negative 01/09/2025 LEUKOCYTESU Small (A) 01/09/2025 PROTEINQUALU 29 (H) 01/09/2025 GLUCOSEU Negative 01/09/2025 KETONESU Negative 01/09/2025 PHURINE 5.8 01/09/2025 ECG: Imaging: CT Abdomen Pelvis with IV Contrast CT Abdomen Pelvis with IV Contrast, CT Chest with IV Contrast Result Date: 06/24/2025 Narrative: EXAM: CT CHEST WITH IV CONTRAST, CT ABDOMEN PELVIS WITH IV CONTRAST COMPARISON: Chest CTA 06/05/2025. CT abdomen and pelvis 06/12/2025 FINDINGS: CHEST: Lungs are clear. No consolidation or groundglass opacities. No pleural effusion. No pneumothorax. Central airways clear. Grossly normal size of the cardiac chambers. No pericardial effusion. Aortic arch branches are patent. Aberrant rightsubclavian artery with retroesophageal course. No thoracic lymphadenopathy by size criteria. No aggressive osseous lesions. ABDOMEN/PELVIS: No concerning hepatic lesions. Hepatic and portal veins arepatent. Normal gallbladder, bile ducts, pancreas, spleen, adrenal glands. Symmetric nephrograms without hydronephrosis. Normal urinary bladder. Unremarkable uterus and adnexa. No abnormal fluid collection in the abdomen or pelvis. No lymphadenopathy by size criteria. Unremarkable mesenteric vasculature. No aggressive osseous lesions. Impression: 1. Normal CT of the chest, abdomen, and pelvis. 2. Previous groundglass opacities from 06/05/2025 have resolved. Thank you for the consultation. Please contact the psychiatry consult service pager [phone] with any questions. Lynn Wilcox DO [employer] PGY-2 [employer] [1] Family History Problem Relation Name Age of Onset Hypertension Mother gabrielle martinez Depression Mother gabrielle martinez Anxiety disorder Mother gabrielle martinez Cystic fibrosis Brother No Known Problems Son Rashid Depression Brother shena martinez Anxiety disorder Brother shena martinez Psychiatric Maternal Grandmother nancy Breast cancer Maternal Grandmother nancy Psychiatric Maternal Grandfather silvia merchant Skin cancer Paternal Grandfather Berkley vega [2] Past Medical History: Diagnosis Date Amblyopia Bilateral Anemia Anxiety Generalized Disorder Depressive Disorder Fibromyalgia 2020 Headache Unspecified Irritable Bowel Syndrome, Unspecified 2016 Leukemia Migraine Headache Other Injury Of Unspecified Body Region Strabismus [3] Past Surgical History: Procedure Laterality Date EYE SURGERY Right 1989 INSERTION CENTRAL VENOUS LINE N/A 12/03/2024 Procedure: INSERTION CENTRAL VENOUS LINE, [place]; Surgeon: Brianna Hernandez M.D., Ph.D.; Location: [facility] OR documented in this encounter Nursing Notes * Seferino Tamayo, RKatalinaN. - 06/26/2025 6:35 PM CDT Problem: PAIN - ADULT Goal: PT VERBALIZES/DEMONSTRATES ADEQUATE COMFORT LEVEL OR BASELINE Note: Patient adequately reports pain Problem: SAFETY ADULT Goal: Maintain a safe environment Note: Patient utilizes call light system Shift Goals: Clinical Goals for the Shift: Patient will tolerate bowel prep Identify possible barriers to meeting goals/advancing plan of care: disease process End of Shift Summary: Vitals remain stable. Patient went down for combination procedure this morning. Three watery bowel movements recorded this afternoon, hat in bathroom. Patient had music therapy in the afternoon and had questions that were relayed to provider. Patient ambulated in myers throughout afternoon. * Carmen Rivas - 06/26/2025 5:59 AM CDT Problem: PAIN - ADULT Goal: PT VERBALIZES/DEMONSTRATES ADEQUATE COMFORT LEVEL OR BASELINE Outcome: Progressing Problem: KNOWLEDGE DEFICIT Goal: Patient/family/caregiver demonstrates understanding of disease process, treatment plan, medications, and discharge instructions Outcome: Progressing Problem: SAFETY ADULT Goal: Maintain a safe environment Outcome: Progressing Shift Goals: Clinical Goals for the Shift: Patient will tolerate bowel prep Identify possible barriers to meeting goals/advancing plan of care: End of Shift Summary: Patient remained vitally stable throughout the shift. Patient tolerated both her bowel preps and was NPO starting at midnight. Patient stated that her pain was a 2/10 but increased to a 5 by morning. PRN dilaudid was given to manage this. Patient will undergo colonoscopy this morning. Patient denies any needs or concerns at this time. Cosigned by Jaclyn Robertson R.N. at 06/26/2025 6:01 AM CDT * Tara Summers R.N. - 06/25/2025 5:05 PM CDT Shift Goals: Patient will report pain levels below a 4 for the shift. Identify possible barriers to meeting goals/advancing plan of care: N/A Problem: SAFETY ADULT Goal: Maintain a safe environment Outcome: Progressing Problem: PAIN - ADULT Goal: PT VERBALIZES/DEMONSTRATES ADEQUATE COMFORT LEVEL OR BASELINE Outcome: Progressing End of Shift Summary: Patient remained vitally stable with no acute events. Patient reported higherpain this morning but otherwise pain was managed through the rest of the shift. No nausea reported today which is an improvement from yesterday. Patient was NPO until lunch and is now on a clear liquid diet for her colonoscopy which is scheduled tomorrow. Bowel prep will begin this evening. * Antonina Lo R.N., [facility] - 06/25/2025 4:13 PM CDT PALLIATIVE CARE NURSING VISIT Patient Name: Radha Martinez Age: 35 y.o. Reason for Palliative Medicine Nurse Visit: Auricular Acupressure for symptom management in the setting of anxiety. I introduced the patient to auricular acupressure as a healing modality for Anxiety/Stress management. Prior to initiating auricular acupressure, safety precautions were reviewed including skin integrity, and allergies. Patient verbalized understanding of rationale for auricular acupressure for symptom management and verbal consent was obtained to proceed with the session. ASSESSMENT Pre acupressure assessment: It was a pleasuring meeting Radha this afternoon. She rates her current anxiety 4/10. Shares she enjoyed a massage previous to my visit. No previous experience with auricular acupressure although her mom does utilize acupuncture with great benefit. Ear (s) used: left ear Auricular protocol selected: Mood 1/Calm: Ramos Men, Brain Stem, Point Zero, Tranquilizer, Master Cerebral Additional Acupoints used: None Device used: Titanium Ear Beads Number of beads placed: 5 Post acupressure assessment: Tolerated bead placement well, no acute change in symptoms. RECOMMENDATION/PLAN Updated sticky note in patient's chart for bedside nurse awareness. Assisted patient in taking picture on personal cellphone for reference. Stimulation instructions provided: Gentle finger pressure several times/day Advised devices should be removed in 3-6 days or if pain, soreness, swelling, pinching, redness, heat, or itching develop. Reviewed most common auricular acupressure risks including local skin irritation/discomfort, mild tenderness or pain at the application site, and itching. Patient verbalized understanding of the above. Auricular Acupressure Treatment Sheet [id number] and Auricular Acupressure Intro Flyer [id number] were provided and reviewed with the patient. Follow up recommendations or education provided on self care. Visit and plan was discussed with Uma Aly CNP and bedside RN. Patient is being seen for follow up visits in by Palliative providers. Antonina Lo R.N., CHPN Palliative Care Nurse [facility] [place] documented in this encounter Miscellaneous Notes * Documentation Clarification - Carlee Armas APRN, C.N.P., D.N.P., M.S.N. - 06/27/2025 12:20 PM CDT PROVIDER RESPONSE TEXT: To clarify, the appropriate diagnosis supported by the clinical indicators: Leukemia Myeloid Chronic BCR/ABL Positive in Remission QUERY TEXT: Clarification DOCUMENTATION CLARIFICATION REQUEST Please clarify/specify the appropriate diagnosis supported in the clinical indicators below. 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 She volunteers that the anxiety she experiences has been up and down and acknowledges that she worries about getting sick although she is in remission. (Jeri) 06/25/2025 Leukemia Myeloid Chronic BCR/ABL Positive Not Having Achieved Remission Transplant Stem Cell ([facility]) 06/27/2025 EXAM: CT CHEST WITH IV CONTRAST, CT ABDOMEN PELVIS WITH IV CONTRAST 06/24/2025 COMPARISON: Chest CTA 06/05/2025. CT abdomen and pelvis 06/12/2025 FINDINGS: CHEST: Lungs are clear. No consolidation or ground glass opacities. No pleural effusion. No pneumothorax. Central airways clear. Grossly normal size of the cardiac chambers. No pericardial effusion. Aortic arch branches are patent. Aberrant right subclavian artery with retroesophageal course. No thoracic lymphadenopathy by size criteria. No aggressive osseous lesions. ABDOMEN/PELVIS: No concerning hepatic lesions. Hepatic and portal veins are patent. Normal gallbladder, bile ducts,pancreas, spleen, adrenal glands. Symmetric nephrograms without hydronephrosis. Normal urinary bladder. Unremarkable uterus and adnexa. No abnormal fluid collection in the abdomen or pelvis. No lymphadenopathy by size criteria. Unremarkable mesenteric vasculature. No aggressive osseous lesions. IMPRESSION: 1. Normal CT of the chest, abdomen, and pelvis. 2. Previous ground glass opacities from 06/05/2025 have resolved. Options provided: -- Leukemia Myeloid Chronic BCR/ABL Positive in Remission -- Leukemia Myeloid Chronic BCR/ABL Positive Not Having Achieved Remission -- Other - I will add my own diagnosis -- Disagree - Clinically unable to determine / Unknown -- Refer to Clinical Documentation Reviewer Query created by: Sophia Connolly on 07/02/2025 3:05 PM Electronically signed by: Carlee Armas APRN 07/02/2025 3:16 PM CDT * Hospital Course - Carlee Armas APRN, C.N.P., Isak, M.S.N. - 06/26/2025 2:28 PM CDT Ms Radha Martinez is a 35 year old female with a past medical history significant for 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 She was admitted to inpatient BMT 06/24/2025 for management of ongoing diffuse abdominal pain. Of note, Ms Martinez has been experiencing abdominal pain since late April 2025 for which she has previously undergone evaluation with multiple CT Abd/Pelvis (obtained on 05/28 and 06/12) and upper GIendoscopy on 06/01/2025 without identifiable cause of pain. She was trialed on short Prednisone burst per Dr Rousseau, which was completed prior to hospitalization on 06/20/2025, though this did not improve her discomfort. Upon hospital admission, Ms Martinez underwent repeat CT Chest/Abdomen/Pelvis which was without diagnostic abnormality. She underwent transvaginal ultrasound on 06/25/2025 which demonstrated smaller than expected ovaries and possible uterine adenomyosis, though no sonographic correlation for patients pain. RUQ ultrasound was obtained on 06/25/2025 and demonstrated only diffuse hepatic steatosis. To this end, Ms Martinez underwent EGD/Flex Sig on 06/26/2025 demonstrating oral thrush, gastritis,non-bleeding gastric ulcer, and duodenitis. Biopsies were obtained for evaluation of possible GVHD,viral gastritis, and H.Pylori and are pending at the time of hospital dismissal. She will continue on Protonix twice daily for management of gastric ulcer, and she was initiated onNystatin swish and spit QID for 7 days for management of oral thrush. Her oral Budesonide was empirically increased to 6 mg PO daily while awaiting surgical pathology results. During her hospitalization, Palliative Medicine was consulted for symptom management. Mrs Martinez was continued on Dilaudid 2 mg PO PRN, which she will continue in the outpatient setting. In terms of follow-up, she will follow on [place] [phone] on 06/30/2025 for review of surgical pathologyresults (scheduling is pending at the time of dismissal), and an outpatient consult for GI was placed for further recommendations regarding work-up and management of abdominal pain. She will proceed to CT A/P Angiogram Enterography as previously ordered with scheduling pending. Message sent to [place] [phone] desk to facilitate this scheduling. Greater than 30 minutes were spent in the planning and coordination of this hospital dismissal. CDT documented in this encounter Plan of Treatment Upcoming Encounters Date Type Department Care Team (Late st Contact Info) Description 08/11/2025 8:00 AM CDT Office Visit Department of Palliative Care in [address] [phone] Meghan Osorio M.D. [address] [place] [phone] 08/11/2025 9:00 AM CDT Nurse Only Section of Infectious Diseases in [address] [phone] Jessica Rousseau M.B.B.S. [address] [place] [phone] 08/11/2025 1:00 PM CDT Clinical Support Department of Palliative Care in [address] [phone] Uma Aly APRN, Satnam.N.P., M.S.N. [address] [place] [phone] 08/13/2025 10:00 AM CDT Lab Department of Laboratory Medicine and Pathology, [facility], in [place], [place] [address] [place] [phone] Jessica Rousseau M.B.B.S. [address] [place] [phone] 08/13/2025 10:30 AM CDT [facility] [place], [place] [address] [place] [phone] Jessica Rousseau M.B.B.S. [address] [place] [phone] Nelli Parker, Pharm.D., R.Ph. [address] [place] [phone] 08/13/2025 11:00 AM CDT Nurse Only [facility] in [place], [place] [address] [place] [phone] Jessica Rousseau M.B.B.S. [address] [place] [phone] 08/13/2025 11:30 AM CDT Office Visit [facility] in [place], [place] [address] [place] [phone] Jessica Rousseau M.B.B.S. [address] [place] [phone] 08/13/2025 3:00 PM CDT Clinical Support Department of Palliative Care in [place], [place] [address] [place] [phone] Meghan Osorio M.D. [address] [place] [phone] Mary Garcia M.S.W., RicS.W. [address] [place] [phone] 08/25/2025 8:00 AM CDT Telemedicine [facility] in [place], [place] [address] [place] [phone] Jessica Rousseau M.B.B.S. [address] [place] [phone] documented as of this encounter Procedures Procedure Name Priority Date/Time Associated Diagnosis Comments CBC NO CALL BACK, REFLEX T/S Routine 06/27/2025 3:50 AM CDT PHOSPHORUS (INORGANIC), S Routine 06/27/2025 3:50 AM CDT MAGNESIUM, S Routine 06/27/2025 3:50 AM CDT COMPREHENSIVE METABOLIC PANEL, S/P Routine 06/27/2025 3:50 AM CDT SURGICAL PATHOLOGY Routine 06/26/2025 11:25 AM CDT FLEXIBLE SIGMOIDOSCOPY Routine 06/26/2025 10:17 AM CDT FLEXIBLE SIGMOIDOSCOPY Routine 06/26/2025 10:17 AM CDT UPPER GI ENDOSCOPY Routine 06/26/2025 10:17 AM CDT EGD (ESOPHAGOGASTRODUODEN OSCOPY) Routine 06/26/2025 10:17 AM CDT CBC NO CALL BACK, REFLEX T/S Routine 06/26/2025 5:24 AM CDT PROTHROMBIN TIME (PT), P Routine 06/26/2025 5:24 AM CDT COMPREHENSIVE METABOLIC PANEL, S/P Routine 06/26/2025 5:24 AM CDT US PELVIS TRANSVAGINAL AND TRANSABDOMINAL RAD - Routine (most inpatients and all outpatients) 06/25/2025 1:01 PM CDT US GALLBLADDER AND OR BILIARY DUCTS RAD - Routine (most inpatients and all outpatients) 06/25/2025 12:58 PM CDT (TTE) 2D ECHO DOPPLER COLOR Routine 06/25/2025 10:47 AM CDT CHIMERISM TRANSPLANT SORTED CELLS Routine 06/25/2025 12:35 AM CDT CBC WITH DIFFERENTIAL, B Routine 06/25/2025 12:35 AM CDT HUMAN CHORIONIC GONADOTROPIN (HCG), JAGRUTI, Routine 06/25/2025 12:35 AM CDT PHOSPHORUS (INORGANIC), S Routine 06/25/2025 12:35 AM CDT MAGNESIUM, S Routine 06/25/2025 12:35 AM CDT COMPREHENSIVE METABOLIC PANEL, S/P Routine 06/25/2025 12:[address] ABDOMEN PELVIS WITH IV CONTRAST RAD - Routine (most inpatients and all outpatients) 06/24/2025 6:[address] CHEST WITH IV CONTRAST RAD - Routine (most inpatients and all outpatients) 06/24/2025 6:16 PM CDT documented in this encounter Results * (ABNORMAL) CBC no call back, reflex T/S HGB <8 (06/27/2025 3:50 AM CDT) Hemoglobin 10.4(L) 11.6 - 15.0 g/dL 06/27/2025 4:08 AM CDT DTL Hematocrit 32.9(L) 35.5 - 44.9 % 06/27/2025 4:08 AM CDT DTL Erythrocytes 3.92 3.92 - 5.13 x10(12)/L 06/27/2025 4:08 AM CDT DTL MCV 83.9 78.2 - 97.9 fL 06/27/2025 4:08 AM CDT DTL RBC Distrib Width 14.4 12.2 - 16.1 % 06/27/2025 4:08 AM CDT DTL Platelet Count 159 157 - 371 x10(9)/L 06/27/2025 4:08 AM CDT DTL Leukocytes 5.2 3.4 - 9.6 x10(9)/L 06/27/2025 4:08 AM CDT DTL Neutrophils 3.80 1.56 - 6.45 x10(9)/L 06/27/2025 4:08 AM CDT DHPM Lymphocytes 0.94(L) 0.95 - 3.07 x10(9)/L 06/27/2025 4:08 AM CDT DTL Monocytes 0.41 0.26 - 0.81 x10(9)/L 06/27/2025 4:08 AM CDT DTL Eosinophils <0.03 0.03 - 0.48 x10(9)/L 06/27/2025 4:08 AM CDT DTL Basophils <0.03 0.01 - 0.08 x10(9)/L 06/27/2025 4:08 AM CDT DTL Blood (Blood, Venous) 06/27/2025 3:50 AM CDT 06/27/2025 3:58 AM CDT us Carlee Armas APRN, C.N.P., D.N.P., M.S. N. LAB BLOOD NON ADD-ON Final Result [facility] [address] [place] [address], [facility] DTL [facility] [address] [place] [address] DHPM [facility] 200 [place] [address] * Phosphorus Inorganic (06/27/2025 3:50 AM CDT) Phosphorus (Inorganic), S 3.2 2.5 - 4.5 mg/dL 06/27/2025 5:10 AM CDT DTL Blood (Blood, Venous) 06/27/2025 3:50 AM CDT 06/27/2025 3:58 AM CDT Satnam Ochoa APRN.N.P., D.N.P., M.S. N. LAB BLOOD ADD-ON Final Result Performing Organization Address City/[facility]/ZIP Co de Phone Number [facility] [address] 200 [place] [address] * Magnesium (06/27/2025 3:50 AM CDT) Pathologist [facility] Magnesium, S 2.0 1.7 - 2.3 mg/dL 06/27/2025 5:10 AM CDT DTL Blood (Blood, Venous) 06/27/2025 3:50 AM CDT 06/27/2025 3:58 AM CDT Carlee Armas APRN C.N.P., D.N.P., M.S. N. LAB BLOOD ADD-ON Final Result [facility] 200 [place], [place] [phone] [place] [address] 200 [place] [address] * Comprehensive Metabolic Panel (06/27/2025 3:50 AM CDT) Potassium, S 4.3 3.6 - 5.2 mmol/L 06/27/2025 5:10 AM CDT DTL Sodium, S 139 135 - 145 mmol/L 06/27/2025 5:10 AM CDT DTL Chloride, S 105 98 - 107 mmol/L 06/27/2025 5:10 AM CDT DTL Bicarbonate, S 22 22 - 29 mmol/L 06/27/2025 5:10 AM CDT DTL Anion Gap 12 7 - 15 06/27/2025 5:10 AM CDT DTL BUN (Blood Urea Nitrogen), S 13 6 - 21 mg/dL 06/27/2025 5:10 AM CDT DTL Creatinine 0.73 0.59 - 1.04 mg/dL 06/27/2025 5:10 AM CDT DTL Estimated GFR (eGFR) >90 >=60 mL/min/BS A 06/27/2025 5:10 AM CDT DTL Comment: Estimated GFR calculated using the 2020 CKD_EPI creatinine equation. Calcium, Total, S 9.0 8.6 - 10.0 mg/dL 06/27/2025 5:10 AM CDT DTL Glucose, S 121 70 - 140 mg/dL 06/27/2025 5:10 AM CDT DTL Protein, Total, S 6.4 6.3 - 7.9 g/dL 06/27/2025 5:10 AM CDT DTL Albumin, S 3.9 3.5 - 5.0 g/dL 06/27/2025 5:10 AM CDT DTL Aspartate Aminotransferase (AST), S 18 8 - 43 U/L 06/27/2025 5:10 AM CDT DTL Alkaline Phosphatase, S 88 35 - 104 U/L 06/27/2025 5:10 AM CDT DTL Alanine Aminotransferase (ALT), S 40 7 - 45 U/L 06/27/2025 5:10 AM CDT DTL Bilirubin, Total, S <0.2 0.0 - 1.2 mg/dL 06/27/2025 5:10 AM CDT DTL Blood (Blood, Venous) 06/27/2025 3:50 AM CDT 06/27/2025 3:58 AM CDT Carlee Armas APRN, C.N.P., D.N.P., M.S. N. LAB BLOOD ADD-ON Final Result [facility] [address] [place] [address], [facility] DTL [facility] [address] [place] [address] * Surgical Pathology (06/26/2025 11:25 AM CDT) 07/01/2025 4:23 PM CDT DTL Report electronically signed by Graciela Humphrey M.D. I verify that I have examined all relevant slides/materials for the specimen(s) and rendered or confirmed the diagnosis. Seen in consultation with: Kandy Stone M.D., Ph.D 07/01/2025 4:23 PM CDT DTL Gross Description A: Received in formalin labeled with the patient's name, medical record number, and duodenum-second part duodenum, duodenal arefive pale emerson-pink irregular soft tissues, ranging from 0.2-0.3 cm in greatest dimension. The specimens are submitted en toto in cassetteA1. Grossed by AJB. B: Received in formalin labeled with the patient's name, medical record number, and stomach-antrum, body of stomach, incisura arethree pale emerson-pink irregular soft tissues, ranging from 0.3-0.5 cm in greatest dimension. The specimens are submitted en toto in cassetteB1. Grossed by AJB. C: Received in formalin labeled with the patient's name, medical record number, and esophagus-middle third esophagus, lower thirdesophagus are five pale ojj-dfde-ozlluubhu nt irregular soft tissues, ranging from 0.2-0.3 cm in greatest dimension. The specimens aresubmitted en toto in cassette C1. Grossed by AJB. D: Received in formalin labeled with the patient's name, medical record number, and colon-rectum, left colon are five pale ybw-busj-wawjrctzb lar soft tissues, ranging from 0.2-0.5 cm in greatest dimension. The specimens are submitted en toto in cassette D1. Grossed byAJB. 07/01/2025 4:23 PM CDT DTL Disclaimer This test was developed using an analyte specific reagent. Its performance characteristics were determined by [facility] in a manner consistent with CLIA requirements. This test has not been cleared or approved by the U.S. Food and Drug Administration. 07/01/2025 4:23 PM CDT DTL Interpretation FINAL DIAGNOSIS A. Duodenum, 2nd part, Duodenal bulb, endoscopic biopsy: Chronic peptic injury type changes. CMV immunostain is negative. B. Stomach, Antrum, Body of stomach, Incisura, endoscopic biopsy: Antral and fundic mucosa with mild chronic gastritis. There is no evidence of intestinal metaplasia or dysplasia. CMV immunostain is negative. C. Esophagus, Middle third, Lower third, endoscopic biopsy: Squamous esophageal mucosa, without diagnostic abnormality. CMV immunostain is negative. D. Colon, Rectum, Left colon, endoscopic biopsy: colonic mucosa with scattered apoptotic bodies, indeterminate for GVHD. CMV immunostain is negative. See comment. COMMENT Colonic mucosa shows scattered crypt epithelial apoptosis. Correlation with clinical symptoms is recommended. Digital imaging was used in the diagnostic assessment of this case. 07/01/2025 4:23 PM CDT DTL Biopsy (Duodenum) 06/26/2025 11:25 AM CDT Biopsy (Stomach) 06/26/2025 11:27 AM CDT Biopsy (Esophagus) 06/26/2025 11:28 AM CDT Biopsy (Colon) 06/26/2025 11 :38 AM CDT Tamara Rashid M.D. LAB SURG PATH ORDERABLES Fi nal Result [facility] [address] [place] [address], [facility] DTL [address] [place] [address] * Flexible Sigmoidoscopy (06/26/2025 10:17 AM CDT) 06/26/2025 10:1 7 AM CDT Impressions [facility] - 06/26/2025 11:58 AM CDT Post-op Diagnoses: - Preparation of the colon was poor. - Stool in the rectum and in the sigmoid colon. - The rectum and sigmoid colon are normal where seen. Biopsied to rule out GVHD and CMV as requested. Narrative [facility] - 06/26/2025 11:58 AM CDT Gonda 2 GI Patient Name: Radha Martinez Date of : 1990 Age: 35 Procedure Date: 06/26/2025 Procedure: Flexible Sigmoidoscopy Providers: Tamara Rashid MD Referring Provider: Mckenzie Melvin Pre-op Diagnoses: Abdominal pain, Exclusion of yjoau-kmvriu-hift disease, Diarrhea Recommendation: - Return patient to hospital verdin for ongoing care. - Await pathology results. - PATHOLOGY/MICROBIOLOGY FOLLOW-UP: The ordering provider is responsible for reviewing results from specimens obtained during this endoscopic procedure and communicating the findings to the patient. If guidance is needed for interpreting endoscopic findings or pathology results, please consider a gastroenterology e-consult. Findings: The perianal and digital rectal examinations were normal. A large amount of stool was found in the rectum and in the sigmoid colon, making visualization difficult. Lavage of the area was performed using a large amount of tap water, resulting in incomplete clearance with fair visualization. The rectum and sigmoid colon appeared normal where seen. Biopsies were taken with a cold forceps for histology and to rule out GVHD and CMV as requested. Verification of patient identification for the specimen was done by the physician and nurse using the patient's name and date. Estimated blood loss was minimal. Retroflexion not performed, multiple forward-facing views obtained. Procedural Details: The patient was seen, evaluated, [...] continuously. The Gastroscope was introduced through the anus and advanced to the sigmoid colon. The flexible sigmoidoscopy was accomplished without difficulty. The patient tolerated the procedure well. The quality of the bowel preparation was poor. Complications: No immediate complications. Estimated Blood Loss: Estimated blood loss was minimal. Attending Participation: I personally performed the entire procedure. Dr. Tamara Rashid MD 06/26/2025 11:58:15 AM This report has been signed electronically. Number of Addenda: 0 Note Initiated On: 06/26/2025 10:17 AM us Carlee Armas APRN, C.N.P., D.N.P., M.S.N. GI PROCEDURE ORDERABLES Final Result [facility] NA * Upper GI Endoscopy (06/26/2025 10:17 AM CDT) 06/26/2025 10:1 7 AM CDT Impressions [facility] - 06/26/2025 11:54 AM CDT Post-op Diagnoses: - Oral thrush present involving the tongue and oral cavity. No evidence of esophageal candidiasis. - Ectopic gastric mucosa in the upper third of the esophagus. - Z-line regular, 38 cm from the incisors. - Biopsies were taken from the lower and middle third of the esophagus to rule out eosinophilic esophagitis, GVHD, and CMV as requested. - Gastroesophageal flap valve classified as Hill Grade I (prominent fold, tight to endoscope). - Gastritis, characterized by congestion (edema), erosions and erythema. Biopsied for Helicobacter pylori testing and to rule out GVHD and CMV as requested. - Non-bleeding gastric ulcer with no stigmata of bleeding in the gastric body. This was sampled and included in gastric biopsies. - Duodenitis, characterized by congestion (edema), erythema and granularity. Biopsied for evaluation of celiac disease and to rule out GVHD and CMV as requested. Narrative [facility] - 06/26/2025 11:54 AM CDT Gonda 2 GI Patient Name: Radha Martinez Date of : 1990 Age: 35 Procedure Date: 06/26/2025 Procedure: Upper GI endoscopy Providers: Tamara Rashid MD Referring Provider: Mckenzie Melvin Pre-op Diagnoses: Exclusion of zdmdg-ljbsev-gkqs disease, Diarrhea, Nausea with vomiting Recommendation: - Return patient to hospital verdin for ongoing care. - Await pathology results. - PATHOLOGY/MICROBIOLOGY FOLLOW-UP: The ordering provider is responsible for reviewing results from specimens obtained during this endoscopic procedure and communicating the findings to the patient. If guidance is needed for interpreting endoscopic findings or pathology results, please consider a gastroenterology e-consult. Findings: Oral thrush present involving the tongue and oral cavity. No evidence of esophageal candidiasis. A single area of ectopic gastric mucosa was found in the upper third of the esophagus, consistent with inlet patch. The Z-line was regular and was found 38 cm from the incisors. The gastroesophageal flap valve was visualized endoscopically and classified as Hill Grade I (prominent fold, tight to endoscope). There is no endoscopic evidence of areas of erosion, esophagitis, inflammation or ulcerations in the lower third of the esophagus. Biopsies were obtained from the proximal and distal esophagus with cold forceps for histology to rule out eosinophilic esophagitis, GVHD, and CMV as requested. Verification of patient identification for the specimen was done by the physician and nurse using the patient's name and date. Estimated blood loss was minimal. Diffuse moderate inflammation characterized by congestion (edema), erosions and erythema was found in the gastric fundus, in the gastric body and in the gastric antrum. Biopsies were taken with a cold forceps for Helicobacter pylori testing and to rule out GVHD and CMV as requested. Verification of patient identification for the specimen was done by the physician and nurse using the patient's name and date. Estimated blood loss was minimal. One non-bleeding superficial gastric ulcer with no stigmata of bleeding was found in the gastric body. The lesion was 3 mm in largest dimension. This was biopsied and included in gastric biopsies. Localized mild inflammation characterized by congestion (edema), erythema and granularity was found in the duodenal bulb. Biopsies for histology were taken from the duodenal bulb and second portion of the duodenum with a cold forceps for evaluation of celiac disease and to rule out GVHD and CMV as requested. Verification of patient identification for the specimen was done by the physician and nurse using the patient's name and date. Estimated blood loss was minimal. Procedural Details: The patient was seen, evaluated, [...] Complications: No immediate complications. Estimated Blood Loss: Estimated blood loss was minimal. Attending Participation: I personally performed the entire procedure. Dr. Tamara Rashid MD 06/26/2025 11:54:23 AM This report has been signed electronically. Number of Addenda: 0 Note Initiated On: 06/26/2025 10:17 AM us Mckenzie Melvin APRN, C.N.P., D.N.P. GI PROCEDU RE ORDERABLES Final Result Performing Organization Address [facility] Co de Phone Number [facility] NA * Prothrombin Time (PT) (06/26/2025 5:24 AM CDT) Prothrombin Time, P 10.7 9.4 - 12.5 sec 06/26/2025 5:49 AM CDT DTL INR 1.0 0.9 - 1.1 06/26/2025 5:49 AM CDT DTL Comment: ----ADDITIONAL INFORMATION---- Standard intensity warfarin therapeutic range: 2.0 to 3.0 High intensity warfarin therapeutic range: 2.5 to 3.5 Blood (Blood, Venous) 06/26/2025 5:24 AM CDT 06/26/2025 5:34 AM CDT Racquel Candelario APRN, C.N.P. LAB BLOOD ADD-ON Fin al Result Performing Organization Address [facility] de Phone Number [place] [address] [place] [address] * (ABNORMAL) CBC no call back, reflex T/S HGB <8 (06/26/2025 5:24 AM CDT) Hemoglobin 11.1(L) 11.6 - 15.0 g/dL 06/26/2025 5:43 AM CDT DTL Hematocrit 34.7(L) 35.5 - 44.9 % 06/26/2025 5:43 AM CDT DTL Erythrocytes 4.08 3.92 - 5.13 x10(12)/L 06/26/2025 5:43 AM CDT DTL MCV 85.0 78.2 - 97.9 fL 06/26/2025 5:43 AM CDT DTL RBC Distrib Width 14.4 12.2 - 16.1 % 06/26/2025 5:43 AM CDT DTL Platelet Count 169 157 - 371 x10(9)/L 06/26/2025 5:43 AM CDT DTL Leukocytes 4.4 3.4 - 9.6 x10(9)/L 06/26/2025 5:43 AM CDT DTL Neutrophils 3.18 1.56 - 6.45 x10(9)/L 06/26/2025 5:42 AM CDT DHPM Lymphocytes 0.80(L) 0.95 - 3.07 x10(9)/L 06/26/2025 5:43 AM CDT DTL Monocytes 0.37 0.26 - 0.81 x10(9)/L 06/26/2025 5:43 AM CDT DTL Eosinophils <0.03 0.03 - 0.48 x10(9)/L 06/26/2025 5:43 AM CDT DTL Basophils <0.03 0.01 - 0.08 x10(9)/L 06/26/2025 5:43 AM CDT DTL Blood (Blood, Venous) 06/26/2025 5:24 AM CDT 06/26/2025 5:33 AM CDT us Racquel Candelario APRN, C.N.P. LAB BLOOD NON ADD-ON Final Result [facility] [address] [place] [address], [facility] DTL [facility] [address] [place] [address] [facility] [address] [place] [address] * (ABNORMAL) Comprehensive Metabolic Panel (06/26/2025 5:24 AM CDT) [facility] Potassium, S 4.6 3.6 - 5.2 mmol/L 06/26/2025 6:12 AM CDT DTL Sodium, S 140 135 - 145 mmol/L 06/26/2025 6:12 AM CDT DTL Chloride, S 103 98 - 107 mmol/L 06/26/2025 6:12 AM CDT DTL Bicarbonate, S 25 22 - 29 mmol/L 06/26/2025 6:12 AM CDT DTL Anion Gap 12 7 - 15 06/26/2025 6:12 AM CDT DTL BUN (Blood Urea Nitrogen), S 10 6 - 21 mg/dL 06/26/2025 6:12 AM CDT DTL Creatinine 0.77 0.59 - 1.04 mg/dL 06/26/2025 6:12 AM CDT DTL Estimated GFR (eGFR) >90 >=60 mL/min/BS A 06/26/2025 6:12 AM CDT DTL Comment: Estimated GFR calculated using the 2020 CKD_EPI creatinine equation. Calcium, Total, S 9.2 8.6 - 10.0 mg/dL 06/26/2025 6:12 AM CDT DTL Glucose, S 103 70 - 140 mg/dL 06/26/2025 6:12 AM CDT DTL Protein, Total, S 6.4 6.3 - 7.9 g/dL 06/26/2025 6:12 AM CDT DTL Albumin, S 4.1 3.5 - 5.0 g/dL 06/26/2025 6:12 AM CDT DTL Aspartate Aminotransferase (AST), S 24 8 - 43 U/L 06/26/2025 6:12 AM CDT DTL Alkaline Phosphatase, S 80 35 - 104 U/L 06/26/2025 6:12 AM CDT DTL Alanine Aminotransferase (ALT), S 49(H) 7 - 45 U/L 06/26/2025 6:12 AM CDT DTL Bilirubin, Total, S 0.3 0.0 - 1.2 mg/dL 06/26/2025 6:12 AM CDT DTL Blood (Blood, Venous) 06/26/2025 5:24 AM CDT 06/26/2025 5:33 AM CDT us Racquel Candelario APRN, C.N.P. LAB BLOOD ADD-ON Fin al Result [facility] [address] [place] [address], [place] DTL [facility] [address] [place] [address] * US Pelvis Transvaginal and Transabdominal (06/25/2025 1:01 PM CDT) Anatomical Region Laterality Modality Pelvis, Ultrasound RST LOS, Ultrasound ARZ LOS, Ultrasound FLA LOS N/A Ultrasound Impressions 06/25/2025 2:11 PM CDT 1. No sonographic correlate for patient's pain. 2. Both ovaries are smaller than typically expected for age with paucity of follicles in keeping with known postmenopausal status. 3. Mild myometrial heterogeneity, possibly uterine adenomyosis. Narrative 06/25/2025 2:11 PM CDT EXAM: US PELVIS TRANSVAGINAL AND TRANSABDOMINAL HISTORY: 35-year-old female with suprapubic/lower quadrant discomfort x5 weeks. COMPARISON: CT abdomen and pelvis 06/24/2025 TECHNIQUE: Transabdominal and transvaginal. Transvaginal exam performed to better visualize the uterus and/or adnexal regions. FINDINGS: Uterus: 4.0 cm x 5.6 cm x 6.3 cm. Myometrium: Diffusely heterogeneous echogenicity. Nabothian cysts. Endometrium: Normal thickness: 5 mm. Right ovary: Smaller than typically expected for age. No follicles. Ovarian volume: 2 ml. Left ovary: Smaller than typically expected for age. No follicles. Ovarian volume: 2 ml. Intraperitoneal Fluid: None. Findings discussed with Aditi Candelario APRN, METAL FABRICATING INSPECTOR pager ([phone]) by Dr. Mcelroy 06/25/2025 at 2:09 PM. Procedure Note Marta Mcelroy M.D. - 06/25/2025 EXAM: US PELVIS TRANSVAGINAL AND TRANSABDOMINAL HISTORY: 35-year-old female with suprapubic/lower quadrant discomfort [id number]. COMPARISON: CT abdomen and pelvis 06/24/2025 TECHNIQUE: Transabdominal and transvaginal. Transvaginal exam performed tobetter visualize the uterus and/or adnexal regions. FINDINGS: Uterus: 4.0 cm x 5.6 cm x 6.3 cm. Myometrium: Diffusely heterogeneous echogenicity. Nabothian cysts. Endometrium: Normal thickness: 5 mm. Right ovary: Smaller than typically expected for age. No follicles.Ovarian volume: 2 ml. Left ovary: Smaller than typically expected for age. No follicles. Ovarianvolume: 2 ml. Intraperitoneal Fluid: None. Findings discussed with Aditi Candelario APRN, METAL FABRICATING INSPECTOR pager ([phone]) by Dr. Mcelroy06/25/2025 at 2:09 PM. IMPRESSION: 1. No sonographic correlate for patient's pain. 2. Both ovaries are smaller than typically expected for age with paucityof follicles in keeping with known postmenopausal status. 3. Mild myometrial heterogeneity, possibly uterine adenomyosis. us Racquel Candelario APRN, C.N.P. IMG US PROCEDURES Fi nal Result * US Gallbladder and or Biliary Ducts (06/25/2025 12:58 PM CDT) Anatomical Region Laterality Modality Abdomen, Ultrasound RST LOS, Ultrasound ARZ LOS, Ultrasound FLA LOS N/A Ultrasound Impressions 06/25/2025 1:25 PM CDT 1. Normal sonographic appearance of the gallbladder. 2. Diffuse hepatic steatosis with geographic fatty sparing in the gallbladder fossa. Narrative 06/25/2025 1:25 PM CDT EXAM: US GALLBLADDER AND OR BILIARY DUCTS COMPARISON: CT abdomen and pelvis 06/24/2025 FINDINGS: Gallbladder: Normal. No gallstones. No wall thickening or pericholecystic fluid.. Negative sonographic Downing sign Intrahepatic ducts: Not dilated Common hepatic duct: Not dilated Common bile duct: Not dilated Aorta: Normal caliber Other: Diffuse hepatic steatosis. Procedure Note Leeroy Ross M.D. - 06/25/2025 EXAM: US GALLBLADDER AND OR BILIARY DUCTS COMPARISON: CT abdomen and pelvis 06/24/2025 FINDINGS: Gallbladder: Normal. No gallstones. No wall thickening or pericholecysticfluid.. Negative sonographic Downing sign Intrahepatic ducts: Not dilated Common hepatic duct: Not dilated Common bile duct: Not dilated Aorta: Normal caliber Other: Diffuse hepatic steatosis. IMPRESSION: 1. Normal sonographic appearance of the gallbladder. 2. Diffuse hepatic steatosis with geographic fatty sparing in thegallbladder fossa. us Racquel Candelario APRN, C.N.P. IMG US PROCEDURES Fi nal Result * (TTE) 2D ECHO DOPPLER COLOR (06/25/2025 10:47 AM CDT) Ejection Fraction 60 MC CV EIMS LV Mass Index 97 MC CV EIMS LV End-Diastolic Diameter 50 MC CV EIMS LV End-Systolic Diameter 32 MC CV EIMS LV End-Diastolic Volume 154 MC CV EIMS LV End-Systolic Volume 62 MC CV EIMS MV E Velocity 0.8 MC CV EIMS MV A Velocity 0.6 MC CV EIMS MV E/A 1.33 MC CV EIMS MV e' Velocity Medial 0.09 MC CV EIMS MV E/e' Medial 8.9 MC CV EIMS Left ventricular stroke volume index 44 MC CV EIMS Cardiac Output 6.73 MC CV EIMS Cardiac Index 3.15 MC CV EIMS LV Global Longitudinal Strain -18 MC CV EIMS LV Interventricular Septal Wall Thickness 11 MC CV EIMS LV Posterior Wall Thickness 11 MC CV EIMS LV Relative Wall Thickness 44 MC CV EIMS Tricuspid Annular S 0.08 MC CV EIMS Estimated RA Pressure (Echo RAP) 5 MC CV EIMS Anatomical Region Laterality Modality Other 06/25/2025 9:33 AM CDT Impressions 06/25/2025 11:19 AM CDT Echo performed at the patient's bedside. Echocardiogram performed per left ventricular function protocol. Last full echocardiogram performed 11/05/2024. LEFT VENTRICLE:Normal left ventricular chamber size. Abnormal left ventricular geometry with concentric left ventricular hypertrophy. Calculated 2-D biplane volumetric left ventricular ejection fraction of 60% without the use of ultrasound enhancing agent. Global averaged left ventricular longitudinal peak systolic strain is borderline at -18% (normal = more negative than -18%). No regional wall motion abnormalities. Normal left ventricular diastolic function. RIGHT VENTRICLE:Normal right ventricular chamber size. Normal right ventricular systolic function by FAC. Unable to detect peak tricuspid regurgitation velocity for pulmonary artery systolic pressure calculation. ATRIA:Normal left atrial size by visual estimate. Normal right atrial size by visual estimate. CARDIAC VALVES:Trileaflet aortic valve. Normal aortic valve. No aortic valve regurgitation. Normal mitral valve. Trivial mitral valve regurgitation. Normal tricuspid valve. Trivial tricuspid valve regurgitation. OTHER ECHO FINDINGS:Normal inferior vena cava size with normal inspiratory collapse (>50%). No intracardiac mass or thrombus, but the left atrial appendage cannot be visualized adequately with transthoracic echo to exclude thrombus in this location. No pericardial effusion. Prominent anterior epicardial fat layer. For the complete report, see the Order-Level Documents. Narrative 06/25/2025 11:19 AM CDT For the complete report, see the Order-Level Documents. Hemodynamics Heart Rate: 74 BPM Blood Pressure: 115 / 80 mmHg ECG: Normal sinus rhythm Final Impressions 1. Normal left ventricular chamber size, no regional wall motion abnormalities, calculated 2-D biplane volumetric ejection fraction of 60%, global averaged longitudinal peak systolic strain is borderline at -18% (normal = more negative than -18%). 2. Normal right ventricular chamber size, normal systolic function (by FAC), unable to detect peak tricuspid regurgitation velocity for pulmonary artery systolic pressure calculation. 3. No hemodynamically significant valvular heart disease. 4. No pericardial effusion. 5. Normal inferior vena cava size with normal inspiratory collapse (>50%). 6. Compared to the report of 11/05/2024 no significant change has occurred. Side by side comparison of images performed. Procedure Note Christo George M.D. - 06/25/2025 For the complete report, see the Order-Level Documents. Hemodynamics Heart Rate: 74 BPM Blood Pressure: 115 / 80 mmHg ECG: Normal sinus rhythm Final Impressions 1. Normal left ventricular chamber size, no regional wall motionabnormalities, calculated 2-D biplane volumetric ejection fraction of 60%,global averaged longitudinal peak systolic strain is borderline at -18%(normal = more negative than -18%). 2. Normal right ventricular chamber size, normal systolic function (byFAC), unable to detect peak tricuspid regurgitation velocity for pulmonaryartery systolic pressure calculation. 3. No hemodynamically significant valvular heart disease. 4. No pericardial effusion. 5. Normal inferior vena cava size with normal inspiratory collapse(>50%). 6. Compared to the report of 11/05/2024 no significant change hasoccurred. Side by side comparison of images performed. Findings Echo performed at the patient's bedside. Echocardiogram performed per leftventricular function protocol. Last full echocardiogram [id number]. LEFT VENTRICLE:Normal left ventricular chamber size. Abnormal leftventricular geometry with concentric left ventricular hypertrophy.Calculated 2-D biplane volumetric left ventricular ejection fraction of60% without the use of ultrasound enhancing agent. Global averaged leftventricular longitudinal peak systolic strain is borderline at -18%(normal = more negative than -18%). No regional wall motion abnormalities.Normal left ventricular diastolic function. RIGHT VENTRICLE:Normal right ventricular chamber size. Normal rightventricular systolic function by FAC. Unable to detect peak tricuspidregurgitation velocity for pulmonary artery systolic pressurecalculation. ATRIA:Normal left atrial size by visual estimate. Normal right atrial sizeby visual estimate. CARDIAC VALVES:Trileaflet aortic valve. Normal aortic valve. No aorticvalve regurgitation. Normal mitral valve. Trivial mitral valveregurgitation. Normal tricuspid valve. Trivial tricuspid valveregurgitation. OTHER ECHO FINDINGS:Normal inferior vena cava size with normal inspiratorycollapse (>50%). No intracardiac mass or thrombus, but the left atrialappendage cannot be visualized adequately with transthoracic echo toexclude thrombus in this location. No pericardial effusion. Prominentanterior epicardial fat layer. For the complete report, see the Order-Level Documents. Mckenzie Melvin APRN, C.N.P., D.N.P. CV ECHO ND OCEDURES Final Result * hCG (Human Chorionic Gonadotropin), Quantitative, (06/25/2025 12:35 AM CDT) HCG, Quantitative, , S <0.5 <5 IU/L 06/25/2025 9:57 AM CDT DTL Blood (Blood, Venous) 06/25/2025 12:35 AM CDT 06/25/2025 8:35 AM CDT us Racquel Candelario APRN, C.N.P. LAB BLOOD ADD-ON Fin al Result [facility] [address] [place] [address], [facility] DTL [facility] [address] [place] [address] * Chimerism Transplant Sorted Cells (06/25/2025 12:35 AM CDT) Specimen Type Peripheral blood 06/29 4:34 PM CDT DTL Interpretation Peripheral blood, chimerism analysis: CD3-positive T-cells: The CD3-positive fraction contains approximately 90% donor DNA and approximately 10% recipient DNA. HG86-ecojgdym myeloid cells: The OW47-cmqatmsp fraction contains approximately 100% donor DNA and approximately 0% recipient DNA. 3 informative loci were used in the analysis of this sample. Signing Pathologist: Sahara Barnes The pre-analytical cell sorting was performed on a research basis only. The analytical sensitivity of this assay is approximately 5% in a posttransplant specimen (donor and recipient DNA mixed chimerism). T-cells and myeloid cells were enriched to a purity of 95% or greater. Markers analyzed: [id number], [id number], FGA, SE33, vWA, [id number], [id number], [id number], [id number], D18S51, Y0K290, W8G1096, CSF1PO, [id number], [id number], [id number], TPOX, [id number], [id number] and [id number] 06/29/2025 4:34 PM CDT DTL Comment: ----ADDITIONAL INFORMATION---- Method summary - Chimerism: Genomic DNA was extracted and the specimen evaluated for the percentages of donor and recipient DNA using a PCR-based method that amplifies several highly polymorphic short tandem repeats (see [facility] Interpretive Handbook for method details). This test was developed and its performance characteristics determined by [facility] in a manner consistent with CLIA requirements. This test has not been cleared or approved by the U.S. Food and Drug Administration. Blood (Blood, Peripheral Draw) 06/25/2025 12:35 AM CDT 06/25/2025 6:57 AM CDT Satnam Scruggs APRN.N.P., D.N.P. LAB GENETI C TESTING Final Result Performing Organization Address City/[facility]/ZIP Co de Phone Number [facility] [address] 200 [facility] 200 [place] [address] * Phosphorus Inorganic (06/25/2025 12:35 AM CDT) [facility] Phosphorus (Inorganic), S 4.1 2.5 - 4.5 mg/dL 06/25/2025 1:31 AM CDT DT Blood (Blood, Venous) 06/25/2025 12:35 AM CDT 06/25/2025 12:58 AM CDT Satnam Scruggs APRN.N.P., D.N.P. LAB BLOOD ADD-ON Final Result Performing Organization Address City/[facility] Co de Phone Number [facility] [address] 200 [place] [address] * Magnesium (06/25/2025 12:35 AM CDT) [facility] Magnesium, S 2.3 1.7 - 2.3 mg/dL 06/25/2025 1:31 AM CDT DT Blood (Blood, Venous) 06/25/2025 12:35 AM CDT 06/25/2025 12:58 AM CDT Mckenzie Melvin APRN C.N.P., D.N.P. LAB BLOOD ADD-ON Final Result Performing Organization Address City/[facility] Co de Phone Number [facility] [address] 200 [place] [address] * (ABNORMAL) Comprehensive Metabolic Panel (06/25/2025 12:35 AM CDT) [facility] Potassium, S 4.9 3.6 - 5.2 mmol/L 06/25/2025 1:31 AM CDT DTL Sodium, S 139 135 - 145 mmol/L 06/25/2025 1:31 AM CDT DTL Chloride, S 103 98 - 107 mmol/L 06/25/2025 1:31 AM CDT DTL Bicarbonate, S 23 22 - 29 mmol/L 06/25/2025 1:31 AM CDT DTL Anion Gap 13 7 - 15 06/25/2025 1:31 AM CDT DTL BUN (Blood Urea Nitrogen), S 12 6 - 21 mg/dL 06/25/2025 1:31 AM CDT DTL Creatinine 0.90 0.59 - 1.04 mg/dL 06/25/2025 1:31 AM CDT DTL Estimated GFR (eGFR) 85 >=60 mL/min/BS A 06/25/2025 1:31 AM CDT DTL Comment: Estimated GFR calculated using the 2020 CKD_EPI creatinine equation. Calcium, Total, S 9.3 8.6 - 10.0 mg/dL 06/25/2025 1:31 AM CDT DTL Glucose, S 133 70 - 140 mg/dL 06/25/2025 1:31 AM CDT DTL Protein, Total, S 6.9 6.3 - 7.9 g/dL 06/25/2025 1:31 AM CDT DTL Albumin, S 4.2 3.5 - 5.0 g/dL 06/25/2025 1:31 AM CDT DTL Aspartate Aminotransferase (AST), S 38 8 - 43 U/L 06/25/2025 1:31 AM CDT DTL Alkaline Phosphatase, S 99 35 - 104 U/L 06/25/2025 1:31 AM CDT DTL Alanine Aminotransferase (ALT), S 63(H) 7 - 45 U/L 06/25/2025 1:31 AM CDT DTL Bilirubin, Total, S 0.2 0.0 - 1.2 mg/dL 06/25/2025 1:31 AM CDT DTL Blood (Blood, Venous) 06/25/2025 12:35 AM CDT 06/25/2025 12:58 AM CDT us Mckenzie Melvin APRN, C.N.P., D.N.P. LAB BLOOD ADD-ON Final Result [facility] [address] [place] [address], [place] DTL [facility] [address] [place] [address] * (ABNORMAL) CBC with Differential, Blood (06/25/2025 12:35 AM CDT) Hemoglobin 11.4(L) 11.6 - 15.0 g/dL 06/25/2025 1:08 AM CDT DTL Hematocrit 36.0 35.5 - 44.9 % 06/25/2025 1:08 AM CDT DTL Erythrocytes 4.27 3.92 - 5.13 x10(12)/L 06/25/2025 1:08 AM CDT DTL MCV 84.3 78.2 - 97.9 fL 06/25/2025 1:08 AM CDT DTL RBC Distrib Width 14.5 12.2 - 16.1 % 06/25/2025 1:08 AM CDT DTL Platelet Count 196 157 - 371 x10(9)/L 06/25/2025 1:08 AM CDT DTL Leukocytes 5.2 3.4 - 9.6 x10(9)/L 06/25/2025 1:08 AM CDT DTL Neutrophils 4.01 1.56 - 6.45 x10(9)/L 06/25/2025 1:08 AM CDT DHPM Lymphocytes 0.74(L) 0.95 - 3.07 x10(9)/L 06/25/2025 1:08 AM CDT DTL Monocytes 0.37 0.26 - 0.81 x10(9)/L 06/25/2025 1:08 AM CDT DTL Eosinophils 0.09 0.03 - 0.48 x10(9)/L 06/25/2025 1:08 AM CDT DTL Basophils 0.03 0.01 - 0.08 x10(9)/L 06/25/2025 1:08 AM CDT DTL Blood (Blood, Venous) 06/25/2025 12:35 AM CDT 06/25/2025 12:58 AM CDT us Mckenziemaria Melvin APRN, C.N.P., D.N.P. LAB BLOOD ADD-ON Final Result [facility] [address] [place] [address], [facility] DTL [facility] [address] [place] [address] DHPM [facility] [address] [place] [address] * CT Chest with IV Contrast (06/24/2025 6:16 PM CDT) Anatomical Region Laterality Modality Chest, Thoracic RST LOS, Tho racic ARZ LOS, Thoracic ARZ LOS, Thoracic FLA LOS N/A Computed Tomography, Compute d Tomography 06/24/2025 6:13 PM CDT Impressions 06/24/2025 6:[address] of the chest, abdomen, and pelvis. 2. Previous groundglass opacities from 06/05/2025 have resolved. Narrative 06/24/2025 6:48 PM CDT EXAM: CT CHEST WITH IV CONTRAST, CT ABDOMEN PELVIS WITH IV CONTRAST COMPARISON: Chest CTA 06/05/2025. CT abdomen and pelvis 06/12/2025 FINDINGS: CHEST: Lungs are clear. No consolidation or groundglass opacities. No pleural effusion. No pneumothorax. Central airways clear. Grossly normal size of the cardiac chambers. No pericardial effusion. Aortic arch branches are patent. Aberrant right subclavian artery with retroesophageal course. No thoracic lymphadenopathy by size criteria. No aggressive osseous lesions. ABDOMEN/PELVIS: No concerning hepatic lesions. Hepatic and portal veins are patent. Normal gallbladder, bile ducts, pancreas, spleen, adrenal glands. Symmetric nephrograms without hydronephrosis. Normal urinary bladder. Unremarkable uterus and adnexa. No abnormal fluid collection in the abdomen or pelvis. No lymphadenopathy by size criteria. Unremarkable mesenteric vasculature. No aggressive osseous lesions. Procedure Note Néstor White M.D. - 06/24/2025 EXAM: CT CHEST WITH IV CONTRAST, CT ABDOMEN PELVIS WITH IV CONTRAST COMPARISON: Chest CTA 06/05/2025. CT abdomen and pelvis 06/12/2025 FINDINGS: CHEST: Lungs are clear. No consolidation or groundglass opacities. No pleuraleffusion. No pneumothorax. Central airways clear. Grossly normal size of the cardiac chambers. No pericardial effusion.Aortic arch branches are patent. Aberrant right subclavian artery withretroesophageal course. No thoracic lymphadenopathy by size criteria. No aggressive osseouslesions. ABDOMEN/PELVIS: No concerning hepatic lesions. Hepatic and portal veins are patent. Normalgallbladder, bile ducts, pancreas, spleen, adrenal glands. Symmetric nephrograms without hydronephrosis. Normal urinary bladder.Unremarkable uterus and adnexa. No abnormal fluid collection in theabdomen or pelvis. No lymphadenopathy by size criteria. Unremarkable mesenteric vasculature.No aggressive osseous lesions. IMPRESSION: 1. Normal CT of the chest, abdomen, and pelvis. 2. Previous groundglass opacities from 06/05/2025 have resolved. Mckenzie Melvin APRN, C.N.P., D.N.P. [facility] [place] PRO CEDURES Final Result * CT Abdomen Pelvis with IV Contrast (06/24/2025 6:16 PM CDT) Anatomical Region Laterality Modality Abdomen, Pelvis, Abdominal R ST LOS, Abdominal ARZ LOS, Abdominal FLA LOS N/A Computed Tomograp hy, Computed Tomography 06/24/2025 6:18 PM CDT Impressions 06/24/2025 6:[address] Normal CT of the chest, abdomen, and pelvis. 2. Previous groundglass opacities from 06/05/2025 have resolved. Narrative 06/24/2025 6:48 PM CDT EXAM: CT CHEST WITH IV CONTRAST, CT ABDOMEN PELVIS WITH IV CONTRAST COMPARISON: Chest CTA 06/05/2025. CT abdomen and pelvis 06/12/2025 FINDINGS: CHEST: Lungs are clear. No consolidation or groundglass opacities. No pleural effusion. No pneumothorax. Central airways clear. Grossly normal size of the cardiac chambers. No pericardial effusion. Aortic arch branches are patent. Aberrant right subclavian artery with retroesophageal course. No thoracic lymphadenopathy by size criteria. No aggressive osseous lesions. ABDOMEN/PELVIS: No concerning hepatic lesions. Hepatic and portal veins are patent. Normal gallbladder, bile ducts, pancreas, spleen, adrenal glands. Symmetric nephrograms without hydronephrosis. Normal urinary bladder. Unremarkable uterus and adnexa. No abnormal fluid collection in the abdomen or pelvis. No lymphadenopathy by size criteria. Unremarkable mesenteric vasculature. No aggressive osseous lesions. Procedure Note Cindy, Néstor Holley M.D. - 06/24/2025 EXAM: CT CHEST WITH IV CONTRAST, CT ABDOMEN PELVIS WITH IV CONTRAST COMPARISON: Chest CTA 06/05/2025. CT abdomen and pelvis 06/12/2025 FINDINGS: CHEST: Lungs are clear. No consolidation or groundglass opacities. No pleuraleffusion. No pneumothorax. Central airways clear. Grossly normal size of the cardiac chambers. No pericardial effusion.Aortic arch branches are patent. Aberrant right subclavian artery withretroesophageal course. No thoracic lymphadenopathy by size criteria. No aggressive osseouslesions. ABDOMEN/PELVIS: No concerning hepatic lesions. Hepatic and portal veins are patent. Normalgallbladder, bile ducts, pancreas, spleen, adrenal glands. Symmetric nephrograms without hydronephrosis. Normal urinary bladder.Unremarkable uterus and adnexa. No abnormal fluid collection in theabdomen or pelvis. No lymphadenopathy by size criteria. Unremarkable mesenteric vasculature.No aggressive osseous lesions. IMPRESSION: 1. Normal CT of the chest, abdomen, and pelvis. 2. Previous groundglass opacities from 06/05/2025 have resolved. Mckenzie Melvin APRN, C.N.P., D.N.P. 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 Transplant Stem Cell (HCC) Nausea And Vomiting Depressive Disorder documented in this encounter Admitting Diagnoses Diagnosis Abdominal Pain documented in this encounter Administered Medications Inactive Administered Medications - up to 3 most recent administrations Medication Order MAR Action Action Date Dose Rate Site acyclovir tablet 400 mg (Zovirax) 400 mg, oral, 2 times daily, First dose on Sun06/24/25 at 2100, Drug Monitoring Program: Pharmacist to adjust medication dosing based on indication and drug clearance factors., Indications: Prophylaxis, medicalIndications:Prophylaxis, medical Given 06/27/2025 8:33 AM CDT 400 mg Given 06/26/2025 9:04 PM CDT 400 mg Given 06/26/2025 8:59 AM CDT 400 mg ARIPiprazole tablet 10 mg (Abilify) 10 mg, oral, Every 24 hours, First dose (after last modification) on Sun06/24/25 at 1700, Per home schedule Given 06/26/2025 4:38 PM CDT 10 mg Given 06/25/2025 4:06 PM CDT 10 mg ARIPiprazole tablet 10 mg (Abilify) 10 mg, oral, Once, On Sun06/24/25 at 2015, For 1 dose Given 06/24/2025 8:05 PM CDT 10 mg budesonide 24 hr capsule 6 mg (Entocort EC) 6 mg, oral, Daily, First dose on Sun06/25/25 at 0900, See tube feeding guidelines for tube feeding administration instructions. Given 06/27/2025 8:33 AM CDT 6 mg Given 06/26/2025 8:59 AM CDT 6 mg Given 06/25/2025 8:01 AM CDT 6 mg buprenorphine 5 mcg/hour 1 patch (Butrans) 1 patch, transdermal, Administer over 7 Days, Weekly, First dose (after last modification) on Sun06/29/25 at 0900, Please ensure previous patch is removed before placing new patch. Patient placed a patch on 06/22/25 prior to admission , Indications: Chronic Pain/Nonacute PainIndications:Chronic Pain/Nonacute Pain cholecalciferol (vitamin D3) tablet 50 mcg 50 mcg, oral, Daily, First dose on [facility] 06/25/25 at 0900, cholecalciferol (vitamin D3) orderable was interchanged for cholecalciferol (vitamin D3) tablet/capsule Given 06/27/2025 8:33 AM C DT 50 mcg Given 06/26/2025 8:59 AM CDT 50 mcg Given 06/25/2025 8:01 AM CDT 50 mcg clotrimazole angela 10 mg (Mycelex) 10 mg, oral, 5 times daily, First dose on Sun06/26/25 at 1400, For 7 days Given 06/27/2025 9:35 AM CDT 10 mg Given 06/27/2025 6:48 AM CDT 10 mg Given 06/26/2025 9:04 PM CDT 10 mg diphenhydrAMINE capsule 25 mg (BenadryL) 25 mg, oral, Every 6 hours PRN, itching, Starting on Sun06/24/25 at 1503 Given 06/26/2025 6:57 PM CDT [address] capsule 120 mg (Cymbalta) 120 mg, oral, Every 24 hours, First dose (after last modification) on [facility] 06/25/25 at 1700, Pre home regimen See tube feeding guidelines for tube feeding administration instructions. Given 06/26/2025 4:38 PM CDT 120 mg Given 06/25/2025 4:06 PM CDT [address] capsule 120 mg (Cymbalta) 120 mg, oral, Once, On Sun06/24/25 at 2015, For 1 dose, See tube feeding guidelines for tube feeding administration instructions. Given 06/24/2025 8:05 PM CDT 12 0 mg granisetron (PF) injection 1 mg (KytriL) 1 mg, intravenous, Once as needed, nausea, vomiting, Starting on Sun06/26/25 at 1159, For 1 dose, PACU (only) Given 06/26/2025 12:01 PM CDT 1 mg HYDROmorphone tablet 2 mg (Dilaudid) 2 mg, oral, Every 4 hours PRN, severe pain or score 7-10 of 10, moderate pain or score 4-6 of 10, Starting on Sun06/24/25 at 1503, Does patient have renal impairment, frailty, or advanced age (avoid morphine) and unable to take oxycodone? No, Did the patient fail other oral opioids during hospitalization? No, Does the patient have documented allergies to oxycodone and/or morphine? Yes, Is the patient on hydromorphone chronically for pain? No, Indications: Chronic Pain/Nonacute PainIndications:Chronic Pain/Nonacute Pain Given 06/27/2025 2:11 AM CDT 2 mg Given 06/26/2025 9:04 PM CDT 2 mg Given 06/26/2025 5:32 AM CDT 2 mg hydrOXYzine tablet 25 mg (Atarax) 25 mg, oral, Every 6 hours PRN, anxiety, Starting on Sun06/25/25 at 1513 Given 06/27/2025 2:11 AM CDT 25 mg ibuprofen tablet 400 mg 400 mg, oral, Every 6 hours PRN, moderate pain or score 4-6 of 10, Starting on Sun06/24/25 at 1503, Take with food or milk if GI disturbances occur with use. Given 06/26/2025 7:44 AM CDT 400 mg Given 06/24/2025 8:06 PM CDT 400 mg iohexoL 300 mg iodine/mL solution 1-200 mL (Omnipaque) 1-200 mL, intravenous, Once in imaging, contrast, Starting on Sun06/24/25 at 1807, For 1 dose, Imaging Protocol Orders, Dose per Radiant Medication Guidelines Given 06/24/2025 6:07 PM CDT 140 mL melatonin tablet 5 mg 5 mg, oral, Daily at bedtime, First dose on Sun06/24/25 at 2100 Given 06/26/2025 9:05 PM CDT 5 mg Given 06/25/2025 8:18 PM CDT 5 mg Given 06/24/2025 8:06 PM CDT 5 mg melatonin tablet 5 mg 5 mg, oral, Bedtime PRN, sleep, Starting on Sun06/25/25 at 0302 Given 06/27/2025 12:15 AM CDT 5 mg Given 06/26/2025 2:07 AM CDT 5 mg Given 06/25/2025 3:05 AM CDT 5 mg naloxone injection 0.4 mg (Narcan) 0.4 mg, intravenous, As needed, reversal, Starting on Sun06/24/25 at 1531 ondansetron ODT disintegrating tablet 4 mg (Zofran-ODT) 4 mg, oral, Every 8 hours PRN, nausea, vomiting, Starting on Sun06/24/25 at 1503, When splitting ODT at bedside, handle with gloves and a pill splitter to prevent moisture contact. Given 06/25/2025 12:15 AM CDT [address] tablet 40 mg (Protonix) 40 mg, oral, 2 times daily before morning and evening meals, First dose on Sun06/24/25 at 1745, Swallow whole. Do NOT crush, chew, or split tablet. Given 06/27/2025 6:48 AM CDT 40 mg Given 06/26/2025 4:38 PM CDT 40 mg Given 06/26/2025 7:18 AM CDT 40 mg [id number] hqr-[id number]-asb-C kit 1,000 mL (MoviPrep) 1,000 mL, oral, Once, On Sun06/25/25 at 2000, For 1 dose, Split-dose regimen: Evening before colonoscopy: Ingest 1 L over 1 h (240 mL every 10 minutes) until entire dose is consumed, then 0.5 L clear fluids, THEN Morning of colonoscopy: Ingest 1 L PEG over 1 h (240 mL every 10 minutes) until entire dose is consumed, then 0.5 L clear fluids at least 1 h prior to colonoscopy. Retain container after use for the second dose. Given 06/25/2025 8:35 PM CDT 1,000 mL [id number] xba-[id number]-[id number]-asb-C kit 1,000 mL (MoviPrep) 1,000 mL, oral, Once, On Sun06/26/25 at 0530, For 1 dose, Split-dose regimen: Evening before colonoscopy: Ingest 1 L over 1 h (240 mL every 10 minutes) until entire dose is consumed, then 0.5 L clear fluids, THEN Morning of colonoscopy: Ingest 1 L PEG over 1 h (240 mL every 10 minutes) until entire dose is consumed, then 0.5 L clear fluids at least 1 h prior to colonoscopy. Use container supplied with first dose. Given 06/26/2025 5:24 AM CDT 1,00 0 mL penicillin V potassium tablet 500 mg (Veetids) 500 mg, oral, 2 times daily, First dose on Sun06/24/25 at 2100, Drug Monitoring Program: Pharmacist to adjust medication dosing based on indication and drug clearance factors., Indications: Prophylaxis, medicalIndications:Prophylaxis, medical Given 06/27/2025 8:33 AM CDT 500 mg Given 06/26/2025 9:04 PM CDT 500 mg Given 06/26/2025 8:59 AM CDT [address] tablet 300 mg (NoxafiL) 300 mg, oral, Daily, First dose on Sun06/25/25 at 0900, Swallow whole. Do NOT crush, chew, or split tablet., Drug Monitoring Program: Pharmacist to adjust medication dosing based on indication and drug clearance factors., Indications: Prophylaxis, medicalIndications:Prophylaxis, medical Given 06/27/2025 8:33 AM CDT 300 mg Given 06/26/2025 8:59 AM CDT 300 mg Given 06/25/2025 8:01 AM CDT 300 mg prochlorperazine tablet 10 mg (Compazine) 10 mg, oral, Every 6 hours PRN, nausea, Starting on Sun06/24/25 at 1503 Given 06/25/2025 7:56 AM CDT 10 mg Given 06/24/2025 4:26 PM CDT 10 mg sennosides-docusate sodium 8.6-50 mg per tablet 1 tablet (Senokot-S) 1 tablet, oral, 2 times daily, First dose on Sun06/26/25 at 1400 sodium chloride (PF) 0.9 % injection 1-100 mL 1-100 mL, intravenous, Once, On Sun06/24/25 at 1830, For 1 dose, Imaging Protocol Orders, Dose per Radiant Medication Guidelines Given 06/24/2025 6:07 PM CDT 50 mL sodium phosphates enema 2 enema (Fleet) 2 enema, rectal, Once, On Sun06/26/25 at 0915, For 1 dose, Give one enema approximately one hour prior to Flex Sig, repeat with a second enema 30 minutes prior to Flex Sig. Given 06/26/2025 9:44 AM CDT 2 enemas sulfamethoxazole-trimethoprim 400-80 mg per tablet 1 tablet (Bactrim) 1 tablet, oral, Daily, First dose on Sun06/25/25 at 0900, Drug Monitoring Program: Pharmacist to adjust medication dosing based on indication and drug clearance factors., Indications: Prophylaxis, medicalIndications:Prophylaxis, medical Given 06/27/2025 8:33 AM CDT 1 ta blet Given 06/26/2025 8:59 AM CDT 1 tablet Given 06/25/2025 8:01 AM CDT 1 tablet documented in this encounter Active and Recently Administered Medications Times are shown in CDT. Scheduled Medication Order 06/25/2025 06/26/2025 06/27/2025 acyclovir tablet 400 mg (Zovirax) 400 mg, oral, 2 times daily, First dose on Sun06/24/25 at 2100, Drug Monitoring Program: Pharmacist to adjust medication dosing based on indication and drug clearance factors., Indications: Prophylaxis, medical 08 (Given - Provider: Tara Summers R.N.)2018 (Given - Provider: Carmen Rivas) 0859 (Given - Provider: Tara Summers R.N.)210 (Given - Provider: Caryn Salazar R.N.) 0833 (Given - Provider: Grisel Heath R.N.) ARIPiprazole tablet 10 mg (Abilify) 10 mg, oral, Every 24 hours, First dose (after last modification) on Sun06/24/25 at 1700, Per home schedule 1606 (Given - Provider: Tara Summers R.N.) 1638 (Given - Provider: Seferino Tamayo R.N.) budesonide 24 hr capsule 6 mg (Entocort EC) 6 mg, oral, Daily, First dose on [facility] 06/25/25 at 0900, See tube feeding guidelines for tube feeding administration instructions. 0801 (Given - Provider: Tara Summers R.N.) 0859 (Given - Provider: Tara Summers R.N.) 0833 (Given - Provider: Grisel Heath R.N.) buprenorphine 5 mcg/hour 1 patch (Butrans) 1 patch, transdermal, Administer over 7 Days, Weekly, First dose (after last modification) on Sun06/29/25 at 0900, Please ensure previous patch is removed before placing new patch. Patient placed a patch on 06/22/25 prior to admission , Indications: Chronic Pain/Nonacute Pain cholecalciferol (vitamin D3) tablet 50 mcg 50 mcg, oral, Daily, First dose on [facility] 06/25/25 at 0900, cholecalciferol (vitamin D3) orderable was interchanged for cholecalciferol (vitamin D3) tablet/capsule 08 (Given - Provider: Tara Summers R.N.) 0859 (Given - Provider: Tara Summers R.N.) 0833 (Given - Provider: Grisel Heath R.N.) clotrimazole angela 10 mg (Mycelex) 10 mg, oral, 5 times daily, First dose on Sun06/26/25 at 1400, For 7 days 1421 (Given - Provider: Seferino Tamayo R.N.)1740 (Given - Provider: Seferino Tamayo R.N.)2104 (Given - Provider: Caryn Salazar R.N.) 0648 (Given - Provider: Caryn Salazar R.N.)0935 (Given - Provider: Grisel Heath R.N.) DULoxetine DR capsule 120 mg (Cymbalta) 120 mg, oral, Every 24 hours, First dose (after last modification) on Sun06/25/25 at 1700, Pre home regimen See tube feeding guidelines for tube feeding administration instructions. 1606 (Given - Provider: Tara Summers R.N.) 1638 (Given - Provider: Seferino Tamayo R.N.) enoxaparin injection 40 mg (Lovenox) 40 mg, subcutaneous, Every 24 hours scheduled, First dose on Sun06/26/25 at 0900 0900 (Not Given - Provider: Tara Summers R.N. - Reason: See Provider Order)2100 (Unheld by provider - Provider: Mckenzie Melvin APRN, C.N.P., D.N.P. - Reason: Other - Comment: HOLD for Flex Sig/EGD) 0834 (Not Given - Provider: Grisel Heath R.N. - Reason: Patient/family refused) lidocaine 5 % 1 patch (Lidoderm) 1 patch, transdermal, Administer over 12 Hours, Daily, First dose on Sun06/25/25 at 0900, Apply to intact skin for a maximum of 12 hours in a 24-hour period. 0801 (Not Given - Provider: Tara Summers R.N. - Reason: Patient/family refused) 0902 (Not Given - Provider: Tara Summers R.N. - Reason: Patient/family refused) 0834 (Not Given - Provider: Grisel Heath RKatalinaNKatalina - Reason: Patient/family refused) melatonin tablet 5 mg 5 mg, oral, Daily at bedtime, First dose on Sun06/24/25 at 2100 2017 (Given - Provider: Carmen Rivas) 2105 (Given - Provider: Caryn Salazar R.N.) pantoprazole DR tablet 40 mg (Protonix) 40 mg, oral, 2 times daily before morning and evening meals, First dose on Sun06/24/25 at 1745, Swallow whole. Do NOT crush, chew, or split tablet. 0601 (Given - Provider: Rosy Bhagat, R.N.)1606 (Given - Provider: Tara Summers RFritz) 0718 (Given - Provider: Tara Summers R.N. - Comment: Pt NPO for procedure)1638 (Given - Provider: Seferino Tamayo RKatalinaNKatalina) 0648 (Given - Provider: Caryn Salazar RFritz) [id number]-asb-C kit 1,000 mL (MoviPrep) (COMPLETED)(Linked Group 1) 1,000 mL, oral, Once, On Sun06/25/25 at 2000, For 1 dose, Split-dose regimen: Evening before colonoscopy: Ingest 1 L over 1 h (240 mL every 10 minutes) until entire dose is consumed, then 0.5 L clear fluids, THEN Morning of colonoscopy: Ingest 1 L PEG over 1 h (240 mL every 10 minutes) until entire dose is consumed, then 0.5 L clear fluids at least 1 h prior to colonoscopy. Retain container after use for the second dose. 2034 (Given - Provider: Jaclyn Robertson RKatalinaNKatalina) [id number]-[id number]-asb-C kit 1,000 mL (MoviPrep) (COMPLETED)(Linked Group 1) 1,000 mL, oral, Once, On Sun06/26/25 at 0530, For 1 dose, Split-dose regimen: Evening before colonoscopy: Ingest 1 L over 1 h (240 mL every 10 minutes) until entire dose is consumed, then 0.5 L clear fluids, THEN Morning of colonoscopy: Ingest 1 L PEG over 1 h (240 mL every 10 minutes) until entire dose is consumed, then 0.5 L clear fluids at least 1 h prior to colonoscopy. Use container supplied with first dose. 0524 (Given - Provider: Carmen Rivas) penicillin V potassium tablet 500 mg (Veetids) 500 mg, oral, 2 times daily, First dose on Sun06/24/25 at 2100, Drug Monitoring Program: Pharmacist to adjust medication dosing based on indication and drug clearance factors., Indications: Prophylaxis, medical 0801 (Given - Provider: Tara Summers R.N.)2018 (Given - Provider: Carmen Rivas) 0859 (Given - Provider: Tara Summers R.N.)2103 (Given - Provider: Caryn Salazar R.N.) 0833 (Given - Provider: Grisel Heath R.N.) posaconazole DR tablet 300 mg (NoxafiL) 300 mg, oral, Daily, First dose on Sun06/25/25 at 0900, Swallow whole. Do NOT crush, chew, or split tablet., Drug Monitoring Program: Pharmacist to adjust medication dosing based on indication and drug clearance factors., Indications: Prophylaxis, medical 08 (Given - Provider: Tara Summers R.N.) 0859 (Given - Provider: Tara Summers R.N.) 0833 (Given - Provider: Grisel Heath R.N.) sennosides-docusate sodium 8.6-50 mg per tablet 1 tablet (Senokot-S) 1 tablet, oral, 2 times daily, First dose on Sun06/26/25 at 1400 1423 (Not Given - Provider: Seferino Tamayo RFritz - Reason: Order parameters not met - Comment: patient having acute onset diarrhea)2115 (Not Given - Provider: Caryn Salazar R.N. - Reason: Order parameters not met - Comment: patient having diarrhea) 0834 (Not Given - Provider: Grisel Heath R.N. - Reason: Patient/family refused) sodium phosphates enema 2 enema (Fleet) (COMPLETED) 2 enema, rectal, Once, On Sun06/26/25 at 0915, For 1 dose, Give one enema approximately one hour prior to Flex Sig, repeat with a second enema 30 minutes prior to Flex Sig. 0944 (Given - Provider: Tara Summers R.N.) sulfamethoxazole-trimetho prim 400-80 mg per tablet 1 tablet (Bactrim) 1 tablet, oral, Daily, First dose on [place] 06/25/25 at 0900, Drug Monitoring Program: Pharmacist to adjust medication dosing based on indication and drug clearance factors., Indications: Prophylaxis, medical 0801 (Given - Provider: Tara Summers R.N.) 0859 (Given - Provider: Tara Summers R.N.) 0833 (Given - Provider: Grisel Heath R.N.) PRN Medication Order 06/25/2025 06/26/2025 06/27/2025 alum-mag hydroxide-simeth 200-200-20 mg/5 mL suspension 30 mL (Maalox) 30 mL, oral, Every 4 hours PRN, indigestion, dyspepsia, Starting on Sun06/24/25 at 1503 diphenhydrAMINE capsule 25 mg (BenadryL) 25 mg, oral, Every 6 hours PRN, itching, Starting on Sun06/24/25 at 1503 1857 (Given - Provider: Lucy Stout R.N., BMT-CN, O.C.N.) granisetron (PF) injection 1 mg (KytriL) (COMPLETED) 1 mg, intravenous, Once as needed, nausea, vomiting, Starting on Sun06/26/25 at 1159, For 1 dose, PACU (only) 1201 (Given - Provider: Renita العراقي RFritz) HYDROmorphone tablet 2 mg (Dilaudid) 2 mg, oral, Every 4 hours PRN, severe pain or score 7-10 of 10, moderate pain or score 4-6 of 10, Starting on Sun06/24/25 at 1503, Does patient have renal impairment, frailty, or advanced age (avoid morphine) and unable to take oxycodone? No, Did the patient fail other oral opioids during hospitalization? No, Does the patient have documented allergies to oxycodone and/or morphine? Yes, Is the patient on hydromorphone chronically for pain? No, Indications: Chronic Pain/Nonacute Pain 0756 (Given - Provider: Tara Summers R.N.)1326 (Given - Provider: Mariana Charles RKatalinaNKatalina) 0532 (Given - Provider: Carmen Rivas)2104 (Given - Provider: Caryn Salazar R.N.) 0211 (Given - Provider: Caryn Salazar R.N.) hydrOXYzine tablet 25 mg (Atarax) 25 mg, oral, Every 6 hours PRN, anxiety, Starting on Sun06/25/25 at 1513 0211 (Given - Provider: Vickie JamesNKatalina) ibuprofen tablet 400 mg 400 mg, oral, Every 6 hours PRN, moderate pain or score 4-6 of 10, Starting on Sun06/24/25 at 1503, Take with food or milk if GI disturbances occur with use. 0744 (Given - Provider: Tara Summers R.N.) loperamide capsule 2 mg (Imodium A-D) 2 mg, oral, 4 times daily PRN, diarrhea, Starting on Sun06/24/25 at 1503, loperamide (IMODIUM A-D) orderable was interchanged for the loperamide (IMODIUM A-D) tablet/capsule melatonin tablet 5 mg 5 mg, oral, Bedtime PRN, sleep, Starting on Sun06/25/25 at 0302 0305 (Given - Provider: Rosy Bhagat, R.N.) 0207 (Given - Provider: Carmen Rivas) 0015 (Given - Provider: Caryn Salazar R.N.) naloxone injection 0.4 mg (Narcan) 0.4 mg, intravenous, As needed, reversal, Starting on Sun06/24/25 at 1531 ondansetron ODT disintegrating tablet 4 mg (Zofran-ODT) 4 mg, oral, Every 8 hours PRN, nausea, vomiting, Starting on Sun06/24/25 at 1503, When splitting ODT at bedside, handle with gloves and a pill splitter to prevent moisture contact. 0015 (Given - Provider: Carol Clement) prochlorperazine tablet 10 mg (Compazine) 10 mg, oral, Every 6 hours PRN, nausea, Starting on Sun06/24/25 at 1503 0756 (Given - Provider: Tara Summers R.N.) sodium chloride 0.9 % injection 10 mL 10 mL, intravenous, As needed, line care, Starting on Sun06/24/25 at 1503, Peripheral Intravenous Catheter and Rapid Infusion Catheter, prior to blood sampling, post blood transfusion or post blood sampling sodium chloride 0.9 % injection 3 mL 3 mL, intravenous, As needed, line care, Starting on Sun06/24/25 at 1503, Prior to and following infusion and between multiple consecutive infusions: sodium chloride 0.9 % injection Linked Groups Order Group 1: [id number] kit 1,000 mL (MoviPrep) (COMPLETED)Jump to med 1,000 mL, oral, Once, On Sun06/25/25 at 2000, For 1 dose, Split-dose regimen: Evening before colonoscopy: Ingest 1 L over 1 h (240 mL every 10 minutes) until entire dose is consumed, then 0.5 L clear fluids, THEN Morning of colonoscopy: Ingest 1 L PEG over 1 h (240 mL every 10 minutes) until entire dose is consumed, then 0.5 L clear fluids at least 1 h prior to colonoscopy. Retain container after use for the second dose. Followed by [id number] kit 1,000 mL (MoviPrep) (COMPLETED)Jump to med 1,000 mL, oral, Once, On Sun06/26/25 at 0530, For 1 dose, Split-dose regimen: Evening before colonoscopy: Ingest 1 L over 1 h (240 mL every 10 minutes) until entire dose is consumed, then 0.5 L clear fluids, THEN Morning of colonoscopy: Ingest 1 L PEG over 1 h (240 mL every 10 minutes) until entire dose is consumed, then 0.5 L clear fluids at least 1 h prior to colonoscopy. Use container supplied with first dose. 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 [address] [place] [address] [place] [id number] PCP - General Family Medicine 04/25/23 documented as of this encounter
--- OUTSIDE RECORDS SUMMARY | 2025-06-26 10:20 | XMS_ITS | Encounter Summary ---
Author Organization [facility] Address [address] [place] [address] Care Team Providers Care Die Trimmer Name Role Phone Renzo Andres M.D. Primary Care Provider Encounter Details Date Type Department Care Team (Latest Contact Info) Description 06/26/2025 10:20 AM CDT Ancillary Procedure Department of Gastroenterology Social [...] for daily living? No 06/24/2025 [facility] Utilities Answer Date Recorded In the past 12 months has th [employer] electric, gas, oil, or water company threatened to shut off services in your home? No 06/24/2025 Depression Answer Date Recor ded PHQ-9 Total Score (max 27) 2 12/10 Housing Stability Answer Date Recorded What is your living situation today? I have a [facility] place to live 06/24/2025 Education Answer Date Recorded What is the highest level of school you have completed or the highest degree you have received? Some college, no degree 04/24/2019 Comments No Sex and Gender Information Value Date Recorded Sex Assigned at Female 12/26/2018 8:37 PM TANK BOTTOM ASSEMBLER Legal Sex Female 2:43 PM TANK BOTTOM ASSEMBLER Gender Identity Female 12/26/2018 8:37 PM TANK BOTTOM ASSEMBLER Sexual Orientation Choose not to disclose 2020 3:46 PM CDT documented as of this encounter Plan of Treatment Upcoming Encounters Date Type Department Care Team (Late st Contact Info) Description 08/11/2025 8:00 AM CDT Office Visit Department of Palliative Care in [place], [place] [address] [place] [phone] Meghan Osorio M.D. [address] [place] [phone] 08/11/2025 9:00 AM CDT Nurse Only Section of Infectious Diseases in [place], [place] [address] [place] [phone] Jessica Rousseau M.B.B.S. [address] [place] [phone] 08/11/2025 1:00 PM CDT Clinical Support Department of Palliative Care in [place], [place] [address] [place] [phone] Uma Aly APRN, C.NLuigi., M.S.N. [address] [place] [phone] 08/13/2025 10:00 AM CDT Lab Department of Laboratory Medicine and Pathology, [facility] in [place], [place] [address] [place] [address] Jessica Rousseau M.B.B.S. [address] [place] [phone] 08/13/2025 10:30 AM CDT [facility] in [place], [place] [address] [place] [phone] Jessica Rousseau M.B.B.S. [address] [place] [phone] Nelli Parker, Pharm.D., R.Ph. [address] [place] [phone] 08/13/2025 11:00 AM CDT Nurse Only [facility] in [place], [place] [address] [place] [phone] Jessica Rousseau M.B.B.S. [address] [place] [phone] 08/13/2025 11:30 AM CDT Office Visit Pedro Lanza laura [facility] for Transplantation and Clinical Regeneration in [place], [place] [address] [place] [address] Jessica Rousseau M.B.B.S. [address] [place] [phone] 08/13/2025 3:00 PM CDT Clinical Support Department of Palliative Care in [place], [place] [address] [place] [phone] Meghan Osorio M.D. [address] [place] [phone] Mary Garcia M.S.W., L.I.C.S.W. [address] [place] [phone] 08/25/2025 8:00 AM CDT Telemedicine Pedro sanchez [facility] in [place], [place] [address] [place] [phone] Jessica Rousseau M.B.B.S. [address] [place] [phone] documented as of this encounter Procedures Procedure Name Priority Date/Time Associated Diagnosis Comments GASTROENTEROLOGY IMAGE EXAM Routine 06/26/2025 10:20 AM CDT documented in this encounter Results * Flexible Sigmoidoscopy-Gastroenterology Image Exam (06/26/2025 10:20 AM CDT) 06/26/2025 10:1 7 AM CDT Narrative [facility] - 06/26/2025 12:05 PM CDT This order has been created [...] Total Score: 2 12/10/19 25 2:46 PM TANK BOTTOM ASSEMBLER documented as of this encounter Care Teams Die Trimmer Relationship Specialty Start Date End Date Renzo Andres M.D. [address] [place] [address] [place] [phone] PCP - General Family Medicine 04/25/23 documented as of this encounter
--- OUTSIDE RECORDS SUMMARY | 2025-06-26 10:25 | XMS_ITS | Encounter Summary ---
Author Organization [facility] Address [address] [place] [address] Care Team Providers Care Vender Name Role Phone Renzo Andres M.D. Primary [...] things needed for daily living? No 06/24/[address] [facility] Utilities Answer Date Recorded In the past 12 months has th [employer] electric, gas, oil, or water company threatened to shut off services in your home? No 06/24/2025 Depression Answer Date Recor ded PHQ-9 Total Score (max 27) 2 12/10 Housing Stability Answer Date Recorded What is your living situation today? I have a [facility] place to live 06/24/2025 Education Answer Date Recorded What is the highest level of school you have completed or the highest degree you have received? Some college, no degree 04/24/2019 Comments No Sex and Gender Information Value Date Recorded Sex Assigned at Female 12/26/2018 8:37 PM INVESTOR RELATIONS MANAGER Legal Sex Female 2:43 PM INVESTOR RELATIONS MANAGER Gender Identity Female 12/26/2018 8:37 PM INVESTOR RELATIONS MANAGER Sexual Orientation Choose not to disclose 2020 3:46 PM CDT documented as of this encounter Plan of Treatment Upcoming Encounters Date Type Department Care Team (Late st Contact Info) Description 08/11/2025 8:00 AM CDT Office Visit Department of Palliative Care in [place], [place] [address] [place] [phone] Meghan Osorio M.D. [address] [place] [phone] 08/11/2025 9:00 AM CDT Nurse Only Section of Infectious Diseases in [place], [place] [address] [place] [phone] Jessica Rousseau M.B.B.S. [address] [place] [phone] 08/11/2025 1:00 PM CDT Clinical Support Department of Palliative Care in [place], [place] [address] [place] [address] Uma Aly APRN, C.NLuigi., M.S.N. [address] [place] [phone] 08/13/2025 10:00 AM CDT Lab Department of Laboratory Medicine and Pathology, [facility] in [place], [place] [address] [place] [address] Jessica Rousseau M.B.B.S. [address] [place] [phone] 08/13/2025 10:30 AM CDT [facility] in [place], [place] [address] [place] [address] Jessica Rousseau M.B.B.S. [address] [place] [phone] Nelli Parker, Pharm.D., R.Ph. [address] [place] [phone] 08/13/2025 11:00 AM CDT Nurse Only [facility] for Transplantation and Clinical Regeneration in [place], [place] [address] [place] [phone] Jessica Rousseau M.B.B.S. [address] [place] [phone] 08/13/2025 11:30 AM CDT Office Visit Pedro Lanza laura [facility] for Transplantation and Clinical Regeneration in [place], [place] [address] [place] [address] Jessica Rousseau M.B.B.S. [address] [place] [phone] 08/13/2025 3:00 PM CDT Clinical Support Department of Palliative Care in [place], [place] [address] [place] [phone] Meghan Osorio M.D. [address] [place] [phone] Mary Garcia M.S.W., L.I.C.S.W. [address] [place] [phone] 08/25/2025 8:00 AM CDT Telemedicine Pedro sanchez [facility] for Transplantation and Clinical Regeneration in [place], [place] [address] [place] [phone] Jessica Rousseau M.B.B.S. [address] [place] [phone] documented as of this encounter Procedures Procedure [...] Total Score: 2 12/10/19 25 2:46 PM INVESTOR RELATIONS MANAGER documented as of this encounter Care Teams Vender Relationship Specialty Start Date End Date Renzo Andres M.D. [address] [place] [address] [place] [phone] PCP - General Family Medicine 04/25/23 documented as of this encounter
--- OUTSIDE RECORDS SUMMARY | 2025-06-26 11:10 | XMS_ITS | Encounter Summary ---
Author Organization [facility] Address [address] [place] [address] Care Team Providers Care General Maintenance Technician Name Role Phone Renzo Andres M.D. Primary Care Provider Encounter Details Date Type Department Care Team (Latest Contact Info) Description 06/26/2025 11:10 AM CDT Anesthesia Event Division of Gastroenterology in [place], [place] [address] [place] [phone] Satya Lozada APRN, CRNA, DNAP [address] [place] [phone] Kiara Gaines M.D. [address] [place] [phone] Anesthesia Record Procedure Summary Procedure Name Responsible [...] things needed for daily living? No 06/24/2025 [facility] Utilities Answer Date Recorded In [...] Sex Assigned at Female 12/26/2018 8:37 PM PLATING TANK OPERATOR APPRENTICE Legal Sex Female 2:43 PM PLATING TANK OPERATOR APPRENTICE Gender Identity Female 12/26/2018 8:37 PM PLATING TANK OPERATOR APPRENTICE Sexual Orientation Choose not to disclose 2020 3:46 PM CDT documented as of this encounter OR Notes * Anesthesia Postprocedure Evaluation - Satya Lozada APRN, TANA, DNAP - 06/26/2025 11:48 AM CDT Patient: Radha Martinez Procedure Summary Date: 06/26/25 Room / Location: Division of Gastroenterology in [place], [place] Anesthesia Start: 1110 Anesthesia Stop: 1148 [...] FLEXIBLE SIGMOIDOSCOPY Location: Division of Gastroenterology in [place], [place] Pertinent components of the patient's history [...] with patient /legal guardian or through an taffy candy maker. The use of blood products not discussed Approval to Proceed: approved for anesthesia documented in this encounter Plan of Treatment Upcoming Encounters Date Type Department Care Team (Late st Contact Info) Description 08/11/2025 8:00 AM CDT Office Visit Department of Palliative Care in [place], [place] [address] [place] [phone] Meghan Osorio M.D. [address] [place] [phone] 08/11/2025 9:00 AM CDT Nurse Only Section of Infectious Diseases in [address] [phone] Jessica Rousseau M.B.B.S. [address] [place] [phone] 08/11/2025 1:00 PM CDT Clinical Support Department of Palliative Care in [address] [phone] Uma Aly APRN, C.N.P., M.S.N. [address] [place] [phone] 08/13/2025 10:00 AM CDT Lab Department of Laboratory Medicine and Pathology, [facility], in [place], [place] [address] [place] [phone] Jessica Rousseau M.B.B.S. [address] [place] [phone] 08/13/2025 10:30 AM CDT [facility] in [place], [place] [address] [place] [phone] Jessica Rousseau M.B.B.S. [address] [place] [phone] Nelli Parker Pharm.D., R.Ph. [address] [place] [phone] 08/13/2025 11:00 AM CDT Nurse Only [facility] for Transplantation and Clinical Regeneration in [place], [place] [address] [place] [phone] Jessica Rousseau M.B.B.S. [address] [place] [phone] 08/13/2025 11:30 AM CDT Office Visit [facility] for Transplantation and Clinical Regeneration in [place], [place] [address] [place] [phone] Jessica Rousseau M.B.B.S. [address] [place] [phone] 08/13/2025 3:00 PM CDT Clinical Support Department of Palliative Care in [place], [place] [address] [place] [phone] Meghan Osorio M.D. [address] [place] [phone] Mary Garcia M.S.W., L.I.C.S.W. [address] [place] [phone] 08/25/2025 8:00 AM CDT Telemedicine [facility] for Transplantation and Clinical Regeneration in [place], [place] [address] [place] [phone] Jessica Rousseau M.B.B.S. [address] [place] [phone] documented as of this encounter Visit Diagnoses [...] Total Score: 2 12/10/19 25 2:46 PM PLATING TANK OPERATOR APPRENTICE documented as of this encounter Care Teams General Maintenance Technician Relationship Specialty Start Date End Date Renzo Andres M.D. NPAmanda: [phone] [address] [place] [phone] PCP - General Family Medicine 04/25/23 documented as of this encounter
--- OUTSIDE RECORDS SUMMARY | 2025-06-30 11:00 | XMS_ITS | Encounter Summary ---
Author Organization [facility] Address [address] [place] [address] Care Team Providers Care Monitor Technician Name Role Phone Renzo Andres M.D. 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 [address] [place] [address] Phone: tel: fax: [facility] Referral ID Status Reason Start Date Expiration Date V isits Requested Visits Authorized [id number] Authorized 06/30/2025 12/30/2026 1 1 Scheduling Instructions Please schedule with pharmacist for 30 minutes. 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 [address] [place] [phone] Phone: tel: fax: [facility] Referral ID Status Reason Start Date Expiration Date V isits Requested Visits Authorized [id number] Authorized 06/30/2025 12/30/2026 1 1 Scheduling Instructions Please schedule with BMT MD for 30 minutes. 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 [address] [place] [phone] Phone: tel: fax: [facility] Referral ID Status Reason Start Date Expiration Date V isits Requested Visits Authorized [id number] Authorized 06/30/2025 12/30/2026 1 1 Scheduling Instructions Please schedule with RNCC for 30 min Patient type: Allo Over 100 Visit Type: Return Scheduling Preferences Option 1: MD/RN no joint visit Option 2: ANUPAM/RN joint visit Other Scheduling Instructions: Primary MD: Soham RN Team: Rst Bmt Team Two [place] Reason for Visit * Reason Comments Nurse Visit * Transplant (Routine) - Closed Specialty Diagnoses / Procedures Referred By Contac t Referred To Contact Transplant Jessica Rousseau M.B.B.S. [address] [place] [phone] Phone: tel: fax: [facility] Referral ID Status Reason Start Date Expiration Date Visits Re quested Visits Authorized [id number] Closed 06/23/2025 12/23/2026 1 1 Encounter Details Date Type Department Care Team (Late st Contact Info) Description 06/30/2025 11:00 AM CDT Nurse Only Pedro Fatima [place] [facility] Transplantation and Clinical Regeneration in [place], [place] [address] [place] [address] Jessica Rousseau M.B.B.S. [address] [place] [phone] Haven Ramirez R.N. [address] [place] [phone] Nurse Visit Social History Tobacco Use Types [...] things needed for daily living? No 07/02/2025 [facility] Utilities Answer Date Recorded In the past 12 months has th e electric, gas, oil, or water company threatened to shut off services in your home? No 07/02/2025 Depression Answer Date Recor ded PHQ-9 Total Score (max 27) 2 12/10 Housing Stability Answer Date Recorded What is your living situation today? I have a [facility] place to live 07/02/2025 Education Answer Date Recorded What is the highest level of school you have completed or the highest degree you have received? Some college, no degree 04/24/2019 Comments No Sex and Gender Information Value Date Recorded Sex Assigned at Female 12/26/2018 8:37 PM REPAIR DEPARTMENT SUPERVISOR Legal Sex Female 2:43 PM REPAIR DEPARTMENT SUPERVISOR Gender Identity Female 12/26/2018 8:37 PM REPAIR DEPARTMENT SUPERVISOR Sexual Orientation Choose not to disclose [...] Office Visit Department of Palliative Care in [place], [place] [address] [place] [phone] Meghan Osorio M.D. [address] [place] [address] 08/11/2025 9:00 AM CDT Nurse Only Section of Infectious Diseases in [place], [place] [address] [place] [phone] Jessica Rousseau M.B.B.S. [address] [place] [phone] 08/11/2025 1:00 PM CDT Clinical Support Department of Palliative Care in [place], [place] [address] [place] [phone] Uma Aly APRN, C.N.P., M.S.N. [address] [place] [phone] 08/13/2025 10:00 AM CDT Lab Department of Laboratory Medicine and Pathology, [facility] in [place], [place] [address] [place] [phone] Jessica Rousseau M.B.B.S. [address] [place] [phone] 08/13/2025 10:30 AM CDT [facility] in [place], [place] [address] [place] [phone] Jessica Rousseau M.B.B.S. [address] [place] [phone] Nelli Parker, Pharm.D., R.Ph. [address] [place] [phone] 08/13/2025 11:00 AM CDT Nurse Only [facility] in [place], [place] [address] [place] [address] Jessica Rousseau M.B.B.S. [address] [place] [phone] 08/13/2025 11:30 AM CDT Office Visit [facility] Transplantation and Clinical Regeneration in [place], [place] [address] [place] [phone] Jessica Rousseau M.B.B.S. [address] [place] [phone] 08/13/2025 3:00 PM CDT Clinical Support Department of Palliative Care in [place], [place] [address] [place] [phone] Meghan Osorio M.D. [address] [place] [phone] Mary Garcia M.SGómez, L.I.C.S.W. [address] [place] [phone] 08/25/2025 8:00 AM CDT Telemedicine [facility] Transplantation and Clinical Regeneration in [place], [place] [address] [place] [phone] Jessica Rousseau M.B.B.S. [address] [place] [phone] Scheduled Orders Name Type Priority Associated Diagnoses [...] Expires: 11/09/2025 BCR/ABL1, p210, mRNA Detection, Reverse Evaporator Helper-PCR (RT-PCR), Quantitative, Monitoring Chronic Myeloid Leukemia (CML) [...] Score: 2 12/10/19 25 2:46 PM REPAIR DEPARTMENT SUPERVISOR documented as of this encounter Care Teams Monitor Technician Relationship Specialty Start Date End Date Renzo Andres M.D. NPAmanda: [phone] [address] [place] [phone] PCP - General Family Medicine 04/25/23 documented as of this encounter
--- OUTSIDE RECORDS SUMMARY | 2025-06-30 11:30 | XMS_ITS | Encounter Summary ---
Author Organization [facility] Address [address] [place] [id number] Care Team Providers Care Ceo And Founder Name Role Phone Renzo Andres M.D. Primary Care Provider Reason for Visit * Transplant (Routine) - Closed Specialty Diagnoses / Procedures Referred By Estefania t Referred To Contact Transplant Jessica Rousseau M.B.B.S. [address] [place] [phone] Phone: tel: fax: [facility] Referral ID Status Reason Start Date Expiration Date Visits Re quested Visits Authorized [id number] Closed 06/23/2025 12/23/2026 1 1 Encounter Details Date Type Department Care Team (Latest Contact Info) Description 06/30/2025 11:30 AM CDT Office Visit Pedro Fatima [place] for Transplantation and Clinical Regeneration in [place], [place] [address] [place] [phone] Jessica Rousseau M.B.B.S. [address] [place] [phone] Transplant Bone Marrow Allogeneic (HCC) (Primary Dx) Social History Tobacco Use [...] things needed for daily living? No 07/02/2025 [facility] Utilities Answer Date Recorded In the past 12 months has e electric, gas, oil, or water company threatened to shut off services in your home? No 07/02/2025 Depression Answer Date Recor ded PHQ-9 Total Score (max 27) 2 12/10 Housing Stability Answer Date Recorded What is your living situation today? I have a [facility] place to live 07/02/2025 Education Answer Date Recorded What is the highest level of school you have completed or the highest degree you have received? Some college, no degree 04/24/2019 Comments No Sex and Gender Information Value Date Recorded Sex Assigned at Female 12/26/2018 8:37 PM STIFF NECK LOADER Legal Sex Female 2:43 PM STIFF NECK LOADER Gender Identity Female 12/26/2018 8:37 PM STIFF NECK LOADER Sexual Orientation Choose not to disclose 2020 3:46 PM CDT documented as of this encounter Progress Notes * Jessica Rousseau M.B.BKatalinaS. - 06/30/2025 11:30 AM CDT SUBJECTIVE TRANSPLANT PHYSICIAN Dr. Jessica Rousseau, pager [phone]. HISTORY OF PRESENT ILLNESS Radha Martinez is a 35 y.o. 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 She was admitted to inpatient BMT 06/24/2025 for management of ongoing diffuse abdominal pain. She is currently day +202 post transplant. HISTORY OF PRESENT ILLNESS Please refer to multiple prior notes in EMR for complete hematologic history: Ms. Martinez is a 35 y.o. 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 At the time of diagnosis, there was grade 3 reticulin fibrosis noted. The cytogenetics identified a [place] chromosome in 20 metaphases. The BCR-ABL1 P [...] t(9;22) metaphases. 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 06/17/2024: feeling quite symptomatic since the [...] prophylaxis: Ursodiol 600 mg two times daily. [facility] ID Number: [id number] [...] done on 06/01. Biopsies negative for GVHD Admission Date: 06/24/2025 Discharge Date: 06/27/2025 She was admitted for severe abdominal pain that she has been experiencing since late April 2025. Cindy had multiple CT abdomen and pelvis (obtained on 05/28 and 06/12) and upper GI endoscopy on 06/01/2025 without identifiable cause of pain. She was trialed on short Prednisone burst per Dr Rousseau, which was completed prior to hospitalization on 06/20/2025, though this did not improve her discomfort. 06/24/2025, CT CAP: Normal CT of the chest, abdomen, and pelvis. 2. Previous groundglass opacities from 06/05/2025 have resolved. 06/25/2025 ultrasound gallbladder: Diffuse hepatic steatosis with geographic fatty bearing in the gallbladder fossa Ms Martinez underwent EGD/Flex Sig on 06/26/2025 demonstrating oral thrush, gastritis, non-bleedinggastric ulcer, and duodenitis. Biopsies were obtained for evaluation of possible GVHD, viral gastritis, and H.Pylori and are pending EVENTS OVER THE LAST 24 HOURS EGD [...] dismissal this afternoon. She will follow on Kwesi Vegas (orderspreviously placed) on 06/30/2025 for discussion of surgical pathology results. 06/30/2025 Ms. Martinez presents today for a follow up visit. She continues to have abdominal pain and is tearful about this. She has localized abdominal pain on his lower umbilical area, sharp in nature and can not identify any triggers. She rates the pain as 7/10 in severity. In the past 1-2 days she has had 4 episodes of diarrhea, resolved with Imodium. Her thrush is improving as she is on nystatin and posaconazole. She remains on Protonix b.i.d. for a small, superficial gastric ulcer. The biopsies from her EGD and sigmoidoscopy are pending. She is on Dilaudid, Flexeril, Butrans patch for abdominal pain with no relief. She feels that her anxieties well-controlled. She went to the ED yesterday for abdominal pain and received 4 mg of IV morphine with some relief. REVIEW OF SYSTEMS A 10-point review of systems is negative, except as noted above. OBJECTIVE I/O Intake/Output Summary (Last 24 hours) at 06/27/2025 1300 Last data filed at 06/27/2025 0921 Gross per 24 hour Intake 340 ml Output 2600 ml Net -2260 ml VITAL SIGNS Temperature: [36.6 ??C] 36.6 ??C Blood Pressure: (165)/(124) 165/124 Pulse Rate: [92] 92 PHYSICAL EXAMINATION General: Nontoxic female in no [...] all quadrants. Mild tenderness with light palpation on the left lower quadrant below the umbilicus, no rebound tenderness or guarding. Skin: Warm, [...] Results from last 7 days Lab Units 06/30/25 1041 06/27/25 0350 06/26/25 0524 HEMOGLOBIN g/dL 12.1 10.4* 11.1* HEMATOCRIT % 37.1 32.9* 34.7* RBC AUTO x10(12)/L 4.46 3.92 4.08 MCV fL 83.2 83.9 85.0 RBC DISTRIBUTION WIDTH AUTO % 14.4 14.4 14.4 WBC x10(9)/L 3.7 5.2 4.4 NEUTROPHILS AUTO x10(9)/L 2.66 3.80 3.18 PLATELETS AUTO x10(9)/L 194 159 169 Results from last 7 days Lab Units 06/30/25 1041 06/30/25 1040 06/27/25 0350 06/26/25 0524 06/25/25 0035 SODIUM mmol/L 141 -- 139 140 139 CHLORIDE mmol/L -- -- 105 103 103 BUN mg/dL 12 -- 13 10 12 CREATININE mg/dL 0.84 -- 0.73 0.77 0.90 CALCIUM mg/dL 9.3 -- 9.0 9.2 9.3 ALBUMIN g/dL 4.3 -- 3.9 4.1 4.2 BILIRUBIN TOTAL P mg/dL -- 0.2 -- -- -- BILIRUBIN TOTAL mg/dL -- -- <0.2 0.3 0.2 ALK PHOS U/L 97 -- 88 80 99 ALT U/L 32 -- 40 49* 63* AST P U/L -- 21 -- -- -- AST U/L -- -- 18 24 38 GLUCOSE mg/dL 164* -- -- -- -- GLUCOSE S mg/dL -- -- 121 103 133 ASSESSMENT / PLAN # [...] pending) and outpatient CT abd/pelvis angiogram enterography - 06/30/2025 - we will trial another dose of morphine 4 mg IV and Zofran IV - She is scheduled for a CT abdomen pelvis angiogram today, 06/30/2025 - which was normal with no large or small bowel inflammation noted - Biopsy results from EGD and sigmoidoscopy are pending # Oral Thrush - Noted per EGD [...] cell transplant (HCC) on 12/10/24, currently day +202 post transplant # Immunodeficiency (HCC) secondary immunosuppressive [...] biopsy June 15, 2025- MRD negative - Bone marrow biopsy 06/15/2025 MRD negative, - 06/23/2025 BCR-ABL P 2 10 negative, sort chimerism CD3 90% donor DNA, CD33 100% donor DNA # GVHD Prophylaxis - Received PTCy; MMF was stopped per protocol. -Tacrolimus discontinued 04/17/2025 ACUTE GVHD (CIBMTR CRITERIA) Current Severity 06/30/25 Skin Stage Stage 0 (No GVHD rash) Liver Stage Stage 0 (Normal bilirubin) Gut Stage Stage 0 (Diarrhea <500 mL/day) nausea Overall Grade Grade 0 (No acute GVHD) Change from previous evaluation: improved Maximum overall grade (and date): Late aGVHD: Other comments: Diagnostic tests: S/p EGD and Flex Sig 06/26/2025, pending Treatment : Budesonide Response to tt : # Antimicrobial Prophylaxis [...] by [facility] in [place], [place]. - Patient will notify team if any vision changes. # Blood Products # TACO - Requires infusion of platelets at a slower rate #CMV- last checked 06/03/2025 #EBV - last checked March 2025 Activity: PAMP Level 4 (walks frequently) VTE Prophylaxis: Enoxaparin 40 mg subcutaneous once daily Blood Transfusions: Patient signed [id number] on 11/03/2024. Surrogate Decision Maker: Significant Other, Charles Minor Code Status: FULL CODE Disposition: Ms Radha Martinez will receive morphine and Zofran IV as Station [address] abdomen and pelvis enterography today. She was encouraged to come back if there are anyacute changes from her baseline status. She verbalized understanding and was agreeable to the plan. documented in this encounter Plan of Treatment Upcoming Encounters Date Type Department Care Team (Late st Contact Info) Description 08/11/2025 8:00 AM CDT Office Visit Department of Palliative Care in [place], [place] [address] [place] [phone] Meghan Osorio M.D. [address] [place] [phone] 08/11/2025 9:00 AM CDT Nurse Only Section of Infectious Diseases in [place], [place] [address] [place] [phone] Jessica Rousseau M.B.B.S. [address] [place] [phone] 08/11/2025 1:00 PM CDT Clinical Support Department of Palliative Care in [place], [place] [address] [place] [phone] Uma Aly APRN, C.N.P., M.S.N. [address] [place] [phone] 08/13/2025 10:00 AM CDT Lab Department of Laboratory Medicine and Pathology, [facility], in [place], [place] [address] [place] [phone] Jessica Rousseau M.B.B.S. [address] [place] [phone] 08/13/2025 10:30 AM CDT Office Visit Pedro sanchez [facility] for Transplantation and Clinical Regeneration in [place], [place] [address] [place] [phone] Jessica Rousseau M.B.B.S. [address] [place] [phone] Nelli Parker, Pharm.D., R.Ph. [address] [place] [phone] 08/13/2025 11:00 AM CDT Nurse Only Pedro Aravind sanchez [facility] for Transplantation and Clinical Regeneration in [place], [place] [address] [place] [address] Jessica Rousseau M.B.B.S. [address] [place] [phone] 08/13/2025 11:30 AM CDT Office Visit [facility] Transplantation and Clinical Regeneration in [place], [place] [address] [place] [phone] Jessica Rousseau M.B.B.S. [address] [place] [phone] 08/13/2025 3:00 PM CDT Clinical Support Department of Palliative Care in [place], [place] [address] [place] [phone] Meghan Osorio M.D. [address] [place] [phone] Mary Garcia M.SLavern., L.I.C.S.W. [address] [place] [phone] 08/25/2025 8:00 AM CDT Telemedicine [facility] Transplantation and Clinical Regeneration in [place], [place] [address] [place] [phone] Jessica Rousseau M.B.B.S. [address] [place] [phone] documented as of this encounter Results * Lactate (06/30/2025 1:12 PM CDT) Lactate, P 1.4 0.5 - 2.2 mmol/L 06/30/2025 2:09 PM CDT DTL Blood (Blood, Venous) 06/30/2025 1:12 PM CDT 06/30/2025 1:19 PM CDT us Jessica DowlingBKatalinaSKatalina LAB BLOOD NON ADD-ON Final Result [facility] [address] [place] [address], [place] DTL [facility] [address] [place] [address] documented in this encounter Visit Diagnoses Diagnosis Transplant Bone Marrow Allogeneic (HCC)- Primary documented in this encounter Additional Health Concerns Infection Onset Date Last Indicated Resolved Time Protective Environment 03/02/2023 03/02/2023 Assessment Noted Time PHQ-9 Depression Total Score: 2 12/10/19 25 2:46 PM STIFF NECK LOADER documented as of this encounter Care Teams Ceo And Founder Relationship Specialty Start Date End Date Renzo Andres M.D. [address] [place] [phone] PCP - General Family Medicine 04/25/23 documented as of this encounter
--- OUTSIDE RECORDS SUMMARY | 2025-06-30 12:34 | XMS_ITS | Encounter Summary ---
Author Organization [facility] Address [address] [place] [address] Care Team Providers Care Checker Product Design Name Role Phone Renzo Andres M.D. Primary Care Provider Reason for Referral * Specialty Diagnoses / Procedures Referred By Estefania acosta Referred To Contact [facility] [address] [place] [address] Phone: tel: [facility] Referral ID Status Reason Start Date Expiration Date Visits Re quested Visits Authorized Encounter Details Date Type Department Care Team (Latest Contact Info) Description 06/30/2025 12:34 PM CDT - 06/30/2025 1:43 PM CDT Hospital Encounter [facility], [facility], Ninth Floor [address] [place] [phone] Mckenzie Melvin APRN, C.N.P., D.N.P. [address] [place] [phone] Leukemia Myeloid Chronic BCR/ABL Positive Not Having [...] things needed for daily living? No 06/24/2025 [facility] Utilities Answer Date Recorded In the past 12 months has e electric, gas, oil, or water company threatened to shut off services in your home? No 06/24/2025 Depression Answer Date Recor ded PHQ-9 Total Score (max 27) 2 12/10 Housing Stability Answer Date Recorded What is your living situation today? I have a [facility] place to live 06/24/2025 Education Answer Date Recorded What is the highest level of school you have completed or the highest degree you have received? Some college, no degree 04/24/2019 Comments No Sex and Gender Information Value Date Recorded Sex Assigned at Female 12/26/2018 8:37 PM DRY CELL TESTER Legal Sex Female 2:43 PM DRY CELL TESTER Gender Identity Female 12/26/2018 8:37 PM DRY CELL TESTER Sexual Orientation Choose not to disclose 2020 [...] times a day. 60 tablet 11 04/29/2025 budesonide (Entocort EC) [address] capsule Take 2 capsules (6 mg total) by mouth daily. 60 capsule 2 06/28/2025 5 buprenorphine (Butrans) 5 mcg/hourIndications :Chronic Pain/Nonacute Pain Place 1 patch on the skin once a week Indication: Chronic Pain/Nonacute Pain. 4 patch 06/19/2025 5 cyclobenzaprine (FlexeriL) 5 mg tabletIndications:T ransplant Stem Cell ([facility]),Pain Neuropathic,Leukemi a Myeloid Chronic BCR/ABL Positive Remission ([facility]) Take 1 tablet (5 mg total) by [...] (Atarax) 25 mg tabletIndications:T ransplant Stem Cell ([facility]),Transplant Bone Marrow Allogeneic (HCC),Leukemia Myeloid Chronic BCR/ABL [...] a day. 60 tablet 1 06/27/2025 5 sulfamethoxazole-tr imethoprim (Bactrim) 400-80 mg per tabletIndications:T ransplant Bone Marrow Allogeneic (HCC),Leukemia Myeloid Chronic BCR/ABL Positive Not Having Achieved Remission (HCC) Take 1 tablet by mouth daily. 60 tablet 1 05/13/2025 5 documented as of this encounter Plan of Treatment Upcoming Encounters Date Type Department Care Team (Late st Contact Info) Description 08/11/2025 8:00 AM CDT Office Visit Department of Palliative Care in [place], [place] [address] [place] [address] Meghan Osorio M.D. [address] [place] [address] 08/11/2025 9:00 AM CDT Nurse Only Section of Infectious Diseases in [place], [place] [address] [place] [address] Jessica Rousseau M.B.B.S. [address] [place] [phone] 08/11/2025 1:00 PM CDT Clinical Support Department of Palliative Care in [place], [place] [address] [place] [phone] Uma Aly APRN, C.N.P., M.S.N. [address] [place] [phone] 08/13/2025 10:00 AM CDT Lab Department of Laboratory Medicine and Pathology, [facility] in [place], [place] [address] [place] [phone] Jessica Rousseau M.B.B.S. [address] [place] [phone] 08/13/2025 10:30 AM CDT [facility] in [place], [place] [address] [place] [phone] Jessica Rousseau M.B.B.S. [address] [place] [phone] Nelli Parker, Pharm.D., R.Ph. [address] [place] [phone] 08/13/2025 11:00 AM CDT Nurse Only [facility] in [place], [place] [address] [place] [address] Jessica Rousseau M.B.B.S. [address] [place] [phone] 08/13/2025 11:30 AM CDT Office Visit [facility] Transplantation and Clinical Regeneration in [place], [place] [address] [place] [phone] Jessica Rousseau M.B.B.S. [address] [place] [phone] 08/13/2025 3:00 PM CDT Clinical Support Department of Palliative Care in [place], [place] [address] [place] [phone] Meghan Osorio M.D. [address] [place] [phone] Mary Garcia M.S.Vivi., L.I.C.S.W. [address] [place] [phone] 08/25/2025 8:00 AM CDT Telemedicine [facility] Transplantation and Clinical Regeneration in [place], [place] [address] [place] [phone] Jessica Rousseau M.B.B.S. [address] [place] [phone] Scheduled Referrals Name Type Priority Associated Diagnoses [...] * Amylase, Total (06/30/2025 1:12 PM CDT) [facility] Amylase, Total, S 50 28 - 100 U/L 06/30/2025 2:24 PM CDT DTL Blood (Blood, Venous) 06/30/2025 1:12 PM CDT 06/30/2025 1:19 PM CDT Jessica DowlingB.S. LAB BLOOD ADD-ON Final Res ult Performing Organization Address City/[facility]/ZIP Co de Phone Number [facility] [address] [place] [address], [facility] [address] [place] [address] * Lipase (06/30/2025 1:12 PM CDT) [facility] Lipase, S 18 13 - 60 U/L 06/30/2025 2: 24 PM CDT DTL Blood (Blood, Venous) 06/30/2025 1:12 PM CDT 06/30/2025 1:19 PM CDT Jessica DowlingB.S. LAB BLOOD ADD-ON Final Res ult Performing Organization Address City/[facility]/ZIP Co de Phone Number [facility] [address] [place] [address], [facility] [address] [place] [address] * Lactate (06/30/2025 1:12 PM CDT) [facility] Lactate, P 1.4 0.5 - 2.2 mmol/L 06/30/2025 2:09 PM CDT DTL Blood (Blood, Venous) 06/30/2025 1:12 PM CDT 06/30/2025 1:19 PM CDT Jessica Barnes LAB BLOOD NON ADD-ON Final Result [facility] [address] [place] [address], [place] [facility] [address] [place] [address] documented in this encounter Visit Diagnoses Diagnosis [...] Total Score: 2 12/10/19 25 2:46 PM DRY CELL TESTER documented as of this encounter Care Teams Checker Product Design Relationship Specialty Start Date End Date Renzo Andres M.D. [address] [place] [address] [place] [phone] PCP - General Family Medicine 04/25/23 documented as of this encounter
--- OUTSIDE RECORDS SUMMARY | 2025-06-30 13:44 | XMS_ITS | Encounter Summary ---
Author Organization [facility] Address [address] [place] [address] Care Team Providers Care Line Maintenance Supervisor Name Role Phone Renzo Andres M.D. Primary Care Provider Reason for Referral * MRI/CAT/PET Scan (Routine) - Closed Specialty Diagnoses / Procedures Referred By Estefania acosta Referred To Contact Radiology Diagnoses Transplant Stem Cell (HCC) Transplant Bone Marrow Allogeneic (HCC) Procedures CT Abdomen Pelvis Enterography with IV Contrast CT Abdomen Pelvis Angiogram Enterography with IV Contrast Carlee Armas APRN, C.N.P., D.N.P., M.S.N. [address] [place] [address] Phone: tel: fax: [facility] Referral ID Status Reason Start Date Expiration Date Visits Re quested Visits Authorized [id number] Closed 06/27/2025 09/27/2026 1 1 CDT Reason for Visit * MRI/CAT/PET Scan (Routine) - Closed Specialty Diagnoses / Procedures Referred By Estefania acosta Referred To Contact Radiology Diagnoses Transplant Stem Cell (HCC) Transplant Bone Marrow Allogeneic (HCC) Procedures CT Abdomen Pelvis Enterography with IV Contrast CT Abdomen Pelvis Angiogram Enterography with IV Contrast Carlee Armas APRN, C.N.P., Heaven.N.P., M.S.N. 200 [place] [address] Phone: tel: fax: [facility] Referral ID Status Reason Start Date Expiration Date Visits Re quested Visits Authorized [id number] Closed 06/27/2025 09/27/2026 1 1 Encounter Details Date Type Department Care Team (Latest Contact Info) Description 06/30/2025 1:44 PM CDT - 06/30/2025 4:14 PM CDT Hospital Encounter Department of Radiology, [facility], in [place], [place] 200 [place] [address] Carlee Armas APRN, C.N.P., Heaven.N.P., M.S.N. [address] [place] [phone] Transplant Stem Cell (HCC); Transplant Bone Marrow Allogeneic (HCC) Discharge [...] things needed for daily living? No 06/24/2025 [facility] Utilities Answer Date Recorded In the past 12 months has th [employer], gas, oil, or water company threatened to shut off services in your home? No 06/24/2025 Depression Answer Date Recor ded PHQ-9 Total Score (max 27) 2 12/10 Housing Stability Answer Date Recorded What is your living situation today? I have a [facility] place to live 06/24/2025 Education Answer Date Recorded What is the highest level of school you have completed or the highest degree you have received? Some college, no degree 04/24/2019 Comments No Sex and Gender Information Value Date Recorded Sex Assigned at Female 12/26/2018 8:37 PM DUMPER Legal Sex Female 2:43 PM DUMPER Gender Identity Female 12/26/2018 8:37 PM DUMPER Sexual Orientation Choose not to disclose 2020 [...] Neuropathic,Leukemi a Myeloid Chronic BCR/ABL Positive Remission (HCC) Take [...] (Mycostatin) 100,000 unit/mL suspensionIndicatio ns:Transplant Stem Cell ([facility]),Transplant Bone Marrow Allogeneic ([facility]),Leukemia Myeloid Chronic BCR/ABL Positive Remission ([facility]),Abdominal Pain Swish and swallow 5 [...] tabletIndications:L eukemia Myeloid Chronic BCR/ABL Positive Remission ([facility]),Transplant Bone Marrow Allogeneic ([facility]) Take 3 tablets (300 mg [...] 1 05/13/2025 documented as of this encounter Nursing Notes * Alice Turner R.N. - 06/30/2025 3:00 PM CDT Enterography Screening Does patient have a confirmed or suspected gastrointestinal perforation or peritonitis? NO If no, continue. Does patient have an allergy to citrus fruit? NO If no, continue. Does patient have an allergy to any of the ingredients in Breeza: Filtered water, Sorbitol, Mannitol, Citric Acid, Sodium Hexametaphosphate (preservative), Xanthan Gum, Sodium Citrate, Sodium Benzoate, Potassium Sorbate (preservative), Sucralose, Malic Acid, Acesulfame Potassium, or Calcium Disodium EDTA? NO If no, continue. Does patient have current issues with aspiration? NO If no, continue. For CT: Has patient had barium in last 72 hours? NO If no, continue. Does patient have an ileostomy or total colectomy? NO If yes, use appropriate section of medicationreference document. NOTE: Notify technologist as scan timing may need to be altered. Ask patient to notify nursing whenoral contrast starts coming through the ostomy as scan timing may need to be altered. Is patient scheduled for a MREN/perianal fistula study? NO if yes, use appropriate section of medication reference document. NOTE: Notify technologist as scan timing may need to be altered. Ask patient to notify nursing whenoral contrast starts coming through the ostomy as scan timing may need to be altered. For CT: Is the patient scheduled for a Puetz-Jeghers Enterography? NO If yes, continue. Does patient have an allergy to Barium sulfate? NO If yes, notify Radiologist. *Administer medications as ordered and as specified in medication reference document. documented in this encounter Plan of Treatment Upcoming Encounters Date Type Department Care Team (Late st Contact Info) Description 08/11/2025 8:00 AM CDT Office Visit Department of Palliative Care in [place], [place] [address] [place] [phone] Meghan Osorio M.D. [address] [place] [phone] 08/11/2025 9:00 AM CDT Nurse Only Section of Infectious Diseases in [place], [place] [address] [place] [phone] Jessica Rousseau M.B.B.S. [address] [place] [phone] 08/11/2025 1:00 PM CDT Clinical Support Department of Palliative Care in [address] [phone] Uma Aly APRN, C.N.P., M.S.N. [address] [place] [phone] 08/13/2025 10:00 AM CDT Lab Department of Laboratory Medicine and Pathology, [facility], in [place], [place] [address] [place] [phone] Jessica Rousseau M.B.B.S. [address] [place] [phone] 08/13/2025 10:30 AM CDT Office Visit Pedro [facility] for Transplantation and Clinical Regeneration in [place], [place] [address] [place] [phone] Jessica Rousseau M.B.B.S. [address] [place] [phone] Nelli Parker, Pharm.D., R.Ph. [address] [place] [phone] 08/13/2025 11:00 AM CDT Nurse Only Pedro sanchez [facility] Transplantation and Clinical Regeneration in [place], [place] [address] [place] [phone] Jessica Rousseau M.B.B.S. [address] [place] [phone] 08/13/2025 11:30 AM CDT Office Visit Pedro Lanza laura [facility] Transplantation and Clinical Regeneration in [place], [place] [address] [place] [phone] Jessica Rousseau M.B.B.S. [address] [place] [phone] 08/13/2025 3:00 PM CDT Clinical Support Department of Palliative Care in [place], [place] [address] [place] [phone] Meghan Osorio M.D. [address] [place] [phone] Mary Garcia M.S.W., L.I.C.S.W. [address] [place] [phone] 08/25/2025 8:00 AM CDT Telemedicine [facility] Transplantation and Clinical Regeneration in [place], [place] [address] [place] [phone] Jessica Rousseau M.B.B.S. [address] [place] [phone] documented as of this encounter Procedures Procedure Name Priority Date/Time Associated Diagnosis Comments CT ABDOMEN PELVIS ENTEROGRAPHY WITH IV CONTRAST RAD - Routine (most inpatients and all outpatients) 06/30/2025 3:37 PM CDT Transplant Stem Cell (HCC) Transplant Bone Marrow Allogeneic (HCC) documented in this encounter Results * CT Abdomen Pelvis Enterography with IV Contrast (06/30/2025 3:37 PM CDT) Anatomical Region Laterality Modality Abdomen, Pelvis, Abdominal R ST LOS, Abdominal ARZ LOS, Abdominal FLA LOS N/A Computed Tomograp hy, Computed Tomography 06/30/2025 3:41 PM CDT Impressions 06/30/2025 6:43 PM CDT Negative for large or small bowel inflammation or imaging abnormality. 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 Narrative 06/30/2025 6:43 PM CDT EXAM: CT ABDOMEN PELVIS ENTEROGRAPHY WITH IV CONTRAST COMPARISON: Multiple prior CTs of the abdomen and pelvis, most recent dated 06/24/2025. Pelvic ultrasound 06/25/2025. FINDINGS: Normal course and caliber of the gastrointestinal tract. Normal duodenal, jejunal, and ileal fold pattern. Negative for CT findings of graft versus host disease or small bowel inflammation or obstruction. Normal CT appearance to the anus. Normal appearance to the proximal colorectum and appendix, without evidence for diverticulitis or typhlitis. No diverticular disease. The mesenteric arterial and venous vasculature is widely patent. The spleen is at the upper limits of normal in size, unchanged compared back to 11/03/2024, without recurrence of the marked splenomegaly seen in 2019. No suspicious lymphadenopathy within the abdomen or pelvis. Tiny fat-containing umbilical hernia, stable compared to prior CT dated 12/10/2018. The liver, gallbladder, pancreas, adrenal glands, kidneys, urinary bladder, and reproductive organs are unremarkable. Negative for adenopathy. Stable, mild degenerative changes at L5-S1 level. Ghost tracks within the bilateral ischii related to prior bone marrow biopsies. Procedure Note Tomas Martinez M.D. - 06/30/2025 EXAM: CT ABDOMEN PELVIS ENTEROGRAPHY WITH IV CONTRAST COMPARISON: Multiple prior CTs of the abdomen and pelvis, most recentdated 06/24/2025. Pelvic ultrasound 06/25/2025. FINDINGS: Normal course and caliber of the gastrointestinal tract. Normal duodenal,jejunal, and ileal fold pattern. Negative for CT findings of graft versushost disease or small bowel inflammation or obstruction. Normal CT appearance to the anus. Normal appearance to the proximalcolorectum and appendix, without evidence for diverticulitis or typhlitis.No diverticular disease. The mesenteric arterial and venous vasculature iswidely patent. The spleen is at the upper limits of normal in size, unchanged comparedback to 11/03/2024, without recurrence of the marked splenomegaly seen [id number]. No suspicious lymphadenopathy within the abdomen or pelvis. Tiny fat-containing umbilical hernia, stable compared to prior CT dated12/10/2018. The liver, gallbladder, pancreas, adrenal glands, kidneys, urinarybladder, and reproductive organs are unremarkable. Negative foradenopathy. Stable, mild degenerative changes at L5-S1 level. Ghost tracks within thebilateral ischii related to prior bone marrow biopsies. IMPRESSION: Negative for large or small bowel inflammation or imaging abnormality. Nomarked splenomegaly or lymphadenopathy to suggest CML recurrence. Satnam Ochoa APRN.N.P., D.N.P., M.S. N. IMG CT PROCEDURES Final Result documented in this encounter Visit Diagnoses Diagnosis Transplant Stem Cell (HCC) Transplant Bone Marrow Allogeneic (HCC) documented in this encounter Administered Medications Inactive Administered Medications - up to 3 most recent administrations Medication Order MAR Action Action Date Dose Rate Site iohexoL 300 mg iodine/mL solution 1-200 mL (Omnipaque) 1-200 mL, intravenous, Once in imaging, contrast, Starting on Sun06/30/25 at 1406, For 1 dose, Imaging Protocol Orders, Dose per Radiant Medication Guidelines Given 06/30/2025 3:29 PM CDT 140 mL sodium chloride (PF) 0.9 % injection 1-100 mL 1-100 mL, intravenous, Once, On Sun06/30/25 at 1430, For 1 dose, Imaging Protocol Orders, Dose per Radiant Medication Guidelines Given 06/30/2025 3:29 PM CDT 50 mL cksguzca-lxdlpcad-wjkegdq gum liquid 1-1,500 mL (Breeza) 1-1,500 mL, oral, Once, On Sun06/30/25 at 1430, For 1 dose, Imaging Protocol Orders Given 06/30/2025 2:22 PM CDT 1,500 mL documented in this encounter Additional Health Concerns Infection Onset Date Last Indicated Resolved Time Protective Environment 03/02/2023 03/02/2023 Assessment Noted Time PHQ-9 Depression Total Score: 2 12/10/19 25 2:46 PM DUMPER documented as of this encounter Care Teams Line Maintenance Supervisor Relationship Specialty Start Date End Date Renzo Andres M.D. NPAmanda: [phone] [address] [place] [address] [place] [address] PCP - General Family Medicine 04/25/23 documented as of this encounter
--- OUTSIDE RECORDS SUMMARY | 2025-06-30 16:15 | XMS_ITS | Encounter Summary ---
Author Organization [facility] Address [address] [place] [address] Care Team Providers Care Disk Sander Name Role Phone Renzo Andres M.D. Primary Care Provider Reason for Referral * Specialty Diagnoses / Procedures Referred By Estefania acosta Referred To Contact RST [facility] [address] [place] [address] Phone: tel: [facility] Referral ID Status Reason Start Date Expiration Date Visits Re quested Visits Authorized Encounter Details Date Type Department Care Team (Latest Contact Info) Description 06/30/2025 4:15 PM CDT - 06/30/2025 7:30 PM CDT Hospital Encounter [facility], [facility], Ninth Floor [address] [place] [phone] Jimmy Rodriguez M.D. 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 No 06/24/2025 [facility] Utilities Answer Date Recorded In the past 12 months has e [employer], gas, oil, or water [employer] threatened to shut off services in your home? No 06/24/2025 Depression Answer Date Recor ded PHQ-9 Total Score (max 27) 2 12/10 Housing Stability Answer Date Recorded What is your living situation today? I have a [facility] place to live 06/24/2025 Education Answer Date Recorded What is the highest level of school you have completed or the highest degree you have received? Some college, no degree 04/24/2019 Comments No Sex and Gender Information Value Date Recorded Sex Assigned at Female 12/26/2018 8:37 PM STAGECRAFT TEACHER Legal Sex Female 2:43 PM STAGECRAFT TEACHER Gender Identity Female 12/26/2018 8:37 PM STAGECRAFT TEACHER Sexual Orientation Choose not to disclose [...] 25 mg tabletIndications:T ransplant Stem Cell ([facility]),Transplant Bone Marrow Allogeneic ([facility]),Leukemia Myeloid Chronic BCR/ABL Positive Remission ([facility]),Abdominal Pain Take 1 tablet (25 mg total) [...] 05/13/2025 5 documented as of this encounter Progress Notes * Mckenzie Melvin, KARON, C.N.P., D.N.P. - 06/30/2025 4:15 PM CDT Patient sent to hospital based outpatient station 9-[address] Rousseau on [place] 9 for pain control. Per Dr. Rousseau, [...] Per discussion with Uma Aly, Palliative Medicine SUPERVISOR INVENTORY MERCHANDISING, recommend patient increase oral dilaudid (home medication) [...] Office Visit Department of Palliative Care in [place], [place] [address] [place] [phone] Meghan Osorio M.D. [address] [place] [phone] 08/11/2025 9:00 AM CDT Nurse Only Section of Infectious Diseases in [place], [place] [address] [place] [phone] Jessica Rousseau M.B.B.S. [address] [place] [phone] 08/11/2025 1:00 PM CDT Clinical Support Department of Palliative Care in [place], [place] [address] [place] [phone] Uma Aly APRN, C.N.P., M.S.N. [address] [place] [phone] 08/13/2025 10:00 AM CDT Lab Department of Laboratory Medicine and Pathology, [facility], in [place], [place] [address] [place] [phone] Jessica Rousseau M.B.B.S. [address] [place] [phone] 08/13/2025 10:30 AM CDT [facility] in [place], [place] [address] [place] [phone] Jessica Rousseau M.B.B.S. [address] [place] [phone] Nelli Parker Pharm.D., R.Ph. [address] [place] [address] [phone] 08/13/2025 11:00 AM CDT Nurse Only [facility] for Transplantation and Clinical Regeneration in [place], [place] [address] [place] [phone] Jessica Rousseau M.B.B.S. [address] [place] [phone] 08/13/2025 11:30 AM CDT Office Visit [facility] for Transplantation and Clinical Regeneration in [place], [place] [address] [place] [phone] Jessica Rousseau M.B.B.S. [address] [place] [phone] 08/13/2025 3:00 PM CDT Clinical Support Department of Palliative Care in [place], [place] [address] [place] [phone] Meghan Osorio M.D. [address] [place] [phone] Mary Garcia M.S.Vivi., L.I.C.S.W. [address] [place] [phone] 08/25/2025 8:00 AM CDT Telemedicine [facility] for Transplantation and Clinical Regeneration in [place], [place] [address] [place] [phone] Jessica Rousseau M.B.B.S. [address] [place] [phone] Scheduled Referrals Name Type Priority Associated Diagnoses [...] Total Score: 2 12/10/19 25 2:46 PM STAGECRAFT TEACHER documented as of this encounter Care Teams Disk Sander Relationship Specialty Start Date End Date Renzo Andres M.D. [address] [place] [phone] PCP - General Family Medicine 04/25/23 documented as of this encounter
--- OUTSIDE RECORDS SUMMARY | 2025-06-30 19:31 | XMS_ITS | Encounter Summary ---
Author Organization [facility] Address [address] [place] [address] Care Team Providers Care Voice Instructor Name Role Phone Renzo Andres M.D. Primary Care Provider Reason for Visit * Reason Comments Abdominal Pain Encounter Details Date Type Department Care Team (Late st Contact Info) Description 06/30/2025 7:31 PM CDT - 06/30/2025 8:06 PM CDT Emergency [facility] Emergency Department [address] [place] [phone] Discharge Disposition: Left Against Medical Advice or [...] needed for daily living? No 06/24/2025 [facility] Utilities Answer Date Recorded In the past 12 months has e electric, gas, oil, or water company threatened to shut off services in your home? No 06/24/2025 Depression Answer Date Recor ded PHQ-9 Total Score (max 27) 2 12/10 Housing Stability Answer Date Recorded What is your living situation today? I have a [facility] place to live 06/24/2025 Education Answer Date Recorded What is the highest level of school you have completed or the highest degree you have received? Some college, no degree 04/24/2019 Comments No Sex and Gender Information Value Date Recorded Sex Assigned at Female 12/26/2018 8:37 PM COAL CHUTE WORKER Legal Sex Female 2:43 PM COAL CHUTE WORKER Gender Identity Female 12/26/2018 8:37 PM COAL CHUTE WORKER Sexual Orientation Choose not to disclose [...] 05/13/2025 5 documented as of this encounter ED Notes * Mary Jane Taylor, RKatalinaN. - 06/30/2025 7:34 PM CDT Pt presents [...] or 7 out of10. Mary Jane Taylor, R.N. 06/30/251936 documented in this encounter Plan of Treatment Upcoming Encounters Date Type Department Care Team (Late st Contact Info) Description 08/11/2025 8:00 AM CDT Office Visit Department of Palliative Care in [place], [place] [address] [place] [phone] Meghan Osorio M.D. [address] [place] [phone] 08/11/2025 9:00 AM CDT Nurse Only Section of Infectious Diseases in [place], [place] [address] [place] [phone] Jessica Rousseau M.B.B.S. [address] [place] [phone] 08/11/2025 1:00 PM CDT Clinical Support Department of Palliative Care in [place], [place] [address] [place] [phone] Uma Aly APRN, C.N.P., M.S.N. [address] [place] [phone] 08/13/2025 10:00 AM CDT Lab Department of Laboratory Medicine and Pathology, [facility], in [place], [place] [address] [place] [phone] Jessica Rousseau M.B.B.S. [address] [place] [phone] 08/13/2025 10:30 AM CDT Office Visit Pedro Fatima [facility] for Transplantation and Clinical Regeneration in [place], [place] [address] [place] [phone] Jessica Rousseau M.B.B.S. [address] [place] [phone] Nelli Parker, Pharm.D., R.Ph. [address] [place] [phone] 08/13/2025 11:00 AM CDT Nurse Only [facility] Transplantation and Clinical Regeneration in [place], [place] [address] [place] [phone] Jessica Rousseau M.B.B.S. [address] [place] [phone] 08/13/2025 11:30 AM CDT Office Visit [facility] Transplantation and Clinical Regeneration in [place], [place] [address] [place] [address] Jessica Rousseau M.B.B.S. [address] [place] [phone] 08/13/2025 3:00 PM CDT Clinical Support Department of Palliative Care in [place], [place] [address] [place] [phone] Meghan Osorio M.D. [address] [place] [phone] Mary Garcia M.S.W., L.I.C.S.W. [address] [place] [phone] 08/25/2025 8:[address] [facility] Transplantation and Clinical Regeneration in [place], [place] [address] [place] [phone] Jessica Rousseau M.B.B.S. [address] [place] [phone] documented as of this encounter Visit Diagnoses Not on filedocumented in this encounter Additional Health Concerns Infection Onset Date Last Indicated Resolved Time Protective Environment 03/02/2023 03/02/2023 Assessment Noted Time PHQ-9 Depression Total Score: 2 12/10/19 25 2:46 PM COAL CHUTE WORKER documented as of this encounter Care Teams Voice Instructor Relationship Specialty Start Date End Date Renzo Andres M.D. [address] [place] [address] [place] [phone] PCP - General Family Medicine 04/25/23 documented as of this encounter
--- OUTSIDE RECORDS SUMMARY | 2025-07-02 20:48 | XMS_ITS | Encounter Summary ---
Author Organization [facility] Address [address] [place] [address] Care Team Providers Care Insurance Underwriting Assistant Name Role Phone Renzo Andres M.D. Primary Care Provider Encounter Details Date Type Department Care Team (Latest Contact Info) Description 07/02/2025 8:48 PM CDT - 07/06/2025 12:56 PM CDT Hospital Encounter [facility], Tenth Floor [address] [place] [address] Armond James M.D. [address] [place] [phone] Geo Mcdowell M.D., Ph.D. [address] [place] [phone] Discharge Disposition: Home or Self Care Social [...] things needed for daily living? No 07/02/2025 [facility] Utilities Answer Date Recorded In the past 12 months has th e electric, gas, oil, or water company threatened to shut off services in your home? No 07/02/2025 Depression Answer Date Recor ded PHQ-9 Total Score (max 27) 2 12/10 Housing Stability Answer Date Recorded What is your living situation today? I have a [facility] place to live 07/02/2025 Education Answer Date Recorded What is the highest level of school you have completed or the highest degree you have received? Some college, no degree 04/24/2019 Comments No Sex and Gender Information Value Date Recorded Sex Assigned at Female 12/26/2018 8:37 PM PRODUCT DESIGN SPECIALIST Legal Sex Female 2:43 PM PRODUCT DESIGN SPECIALIST Gender Identity Female 12/26/2018 8:37 PM PRODUCT DESIGN SPECIALIST Sexual Orientation Choose not to disclose [...] AM CDT DISCHARGE SUMMARY BRIEF OVERVIEW Hospital: [facility] Discharge Provider: Geo Mcdowell M.D. Primary Team: [facility] Primary Care Providers: Renzo Andres M.D. 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 Please [...] needed for nausea. 30 tablet 2 07/01/2025 buprenorphine (Butrans) 5 mcg/hourIndications :Chronic Pain/Nonacute Pain Place 1 patch on the skin once a week Indication: Chronic Pain/Nonacute Pain. 4 patch 06/19/2025 07/14/20 25 HYDROmorphone (Dilaudid) 1 mg/mL liquidIndications:C hronic Pain/Nonacute Pain Take 2 mL (2 mg total) by mouth every 6 (six) hours as needed for pain Indication: Chronic Pain/Nonacute Pain. 60 mL 07/02/2025 07/29/20 25 hyoscyamine (Levsin) 0.125 mg tablet Take 1 tablet (0.125 mg total) by mouth every 4 (four) hours as needed for bladder spasms. For abdominal pain/cramping/sp asm 30 tablet 1 07/06/2025 07/29/20 25 OLANZapine (ZyPREXA) 2.5 mg tablet Take 1 tablet (2.5 mg total) by mouth 4 (four) times a day as needed (nausea). 16 tablet 1 07/06/2025 07/16/20 25 OLANZapine (ZyPREXA) 5 mg tablet Take 1 tablet (5 mg total) by mouth at bedtime. 30 tablet 1 07/06/2025 08/05/20 25 pantoprazole (Protonix) 40 mg EC tablet [...] 25 predniSONE (Deltasone) 10 mg tablet Take 1 tablet (10 mg total) by mouth as directed. Take 3 tablets 07/06-07/12, 2 tablets 07/13-07/19, 1 tablet 07/20-07/26, 1/2 tab 07/27 -08/02 and then stop 45 tablet 07/06/2025 07/22/20 25 sennosides-docusate sodium (Senokot-S) 8.6-50 mg per [...] APRN, C.N.P. - 07/06/2025 9:30 AM CDT [facility] Palliative Care Progress Note Patient: Radha Avitia Juan; 35 y.o.female Location Type: Hospital - General Floor Location: - Reason for Consult: Symptom Management SUBJECTIVE Alexia [...] Martinez. Ermelinda Woodward APRN, C.N.P. * Jessica Avila APRN, C.N.Jaen., M.S.N. - 07/06/2025 7:39 AM CDT SUBJECTIVE TRANSPLANT PHYSICIAN Dr. Jessica Rousseau, pager [phone]. 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 In the future she will take Maalox [...] and 2.5 mg QID prn. # Stool Gilbert on CT - Will start titration of [...] Hold CBD oral oil during transplant. - 8/16 Will discuss tomorrow on rounds restarting CBD oil - S/p Psychiatry consult 06/25/2025 without evidence of somatization process. Trial Atarax PRN for anxiety. 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 Has only peripheral vision in right eye. Wears glasses. - Followed by [facility] in [place], [place]. - Patient will notify team if [...] subcutaneous once daily Blood Transfusions: Patient signed [id number] on 11/03/2024. Surrogate Decision Maker: Significant Other, Charlse Minor Code Status: FULL CODE Jessica Avila [...] the opioid slowly. The rest is per Margarita. * Jessica Avila, KARON, C.N.P., M.S.N. - 07/05/2025 7:41 AM CDT SUBJECTIVE TRANSPLANT PHYSICIAN Dr. Jessica Rousseau, pager [phone]. HISTORY OF PRESENT ILLNESS Ms Radha Martinez [...] from last 7 days Lab Units 07/05/25 00507/04/2531 07/02/25 2140 HEMOGLOBIN g/dL 10.5* 10.5* 11.8 [...] and 2.5 mg QID prn. # Stool Gilbert on CT - Will start titration of [...] by [facility] in [place], [place]. - Patient will notify team if any vision changes. # Blood Products # TACO - Requires infusion of platelets at a slower rate. # CMV- last checked 06/03/2025 # EBV - last checked March 2025 # Disposition Pt will remain inpatient till clinically improved Activity: PAMP Level 4 (walks frequently) VTE Prophylaxis: Enoxaparin 40 mg subcutaneous once daily Blood Transfusions: Patient signed [id number] on 11/03/2024. Surrogate Decision Maker: Significant Other, Charles Minor Code Status: FULL CODE Jessica Avila APRN, C.Mk, M.S.N. * Geo Mcdowell M.D., Ph.D. - [...] Arellano P.A.-C. - 07/04/2025 9:07 AM CDT 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 Patient admitted with abdominal pain and nausea has had multiple hospitalizations for similar symptomology with no clear etiology. Inconclusive data for lwbzq-asmtiu-opyd prednisone started 07-02-25. Nausea better today compared [...] to wean the opioid therapy to which Jennifer agreeable with. Plan will be for EGD [...] not hesitate to contact Palliative Medicine M ([phone]) with any questions or concerns. Total time spent was 70 minutes. Karen Arellano P.A.-C. * Jessica Avila, KARON, C.N.P., M.S.N. - 07/04/2025 7:06 AM CDT SUBJECTIVE TRANSPLANT PHYSICIAN Dr. Jessica Rousseau, pager [phone]. HISTORY OF PRESENT ILLNESS Ms Radha Martinez [...] reticulin fibrosis noted. The cytogenetics identified a [place] chromosome in 20 metaphases. The BCR-ABL1 P [...] t(9;22) metaphases. NGS is positive for ASXL1 p.Zyv682Rrfic*12 (20%) and p.Frp609* (3%). 06/17/2024: feeling quite symptomatic since the [...] Access Camargo CVC placed on 12/03/24 by [facility]. Social Work Seen and [...] prophylaxis: Ursodiol 600 mg two times daily. [facility] ID Number: [id number] [...] Results from last 7 days Lab Units 07/04/25 0531 07/02/25 2140 06/30/25 1041 HEMOGLOBIN g/dL 10.5* 11.8 12.1 HEMATOCRIT % 33.0* 36.3 37.1 RBC AUTO x10(12)/L 3.88* 4.34 4.46 MCV fL 85.1 83.6 83.2 RBC DISTRIBUTION WIDTH AUTO % 14.5 14.5 14.4 WBC x10(9)/L 5.9 6.9 3.7 NEUTROPHILS AUTO x10(9)/L 4.28 5.49 2.66 PLATELETS AUTO x10(9)/L 183 225 194 Results from last 7 days Lab Units 07/04/25 0531 07/02/25 2139 06/30/25 1041 06/30/25 1040 SODIUM mmol/L 140 137 [...] for additional pain management. - Script for Donavankhalif sent for prior authorization on 07/02/2025; Awaiting [...] and 2.5 mg QID prn. # Stool Gilbert on CT - Will start titration of [...] by [facility] in [place], [place]. - Patient will notify team if any vision changes. # Blood Products # TACO - Requires infusion of platelets at a slower rate. # CMV- last checked 06/03/2025 # EBV - last checked March 2025 # Disposition Pt will remain inpatient till clinically improved Activity: PAMP Level 4 (walks frequently) VTE Prophylaxis: Enoxaparin 40 mg subcutaneous once daily Blood Transfusions: Patient signed [id number] on 11/03/2024. Surrogate Decision Maker: Significant Other, Charles Iván Code Status: FULL CODE Jessica Avila APRN, C.N.PKatalina, M.S.N. * Kyle Cole Pharm.D., R.Ph. 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 She is admitted for abdominal pain. OBJECTIVE Home medications: Held: resumed appropriately Patient own medications: none Antimicrobial prophylaxis: acyclovir, posaconazole, penicillin, Bactrim VTE-P: enoxaparin ASSESSMENT / PLAN # Abdominal pain -Evaluation ongoing. Symptomatic management. 07/02 empiric prednisone until diagnostics complete. * Vikki Dunlap, R.N. - 07/03/2025 2:02 PM CDT PALLIATIVE [...] for having the Palliative Medicine team M ([phone]) participate in the care of this patient. Please do not hesitate to contact our team at any time with any questions or concerns. Vikki Dunlap R.N. Palliative Care Nurse [facility] * Geo Mcdowell M.D., Ph.D. - 07/03/2025 9:52 AM CDT I visited and evaluated the patient and agree with the history, physical exam, assessment and plan as documented by Ms. Armas in her admit note of July 02, [...] SUBJECTIVE TRANSPLANT PHYSICIAN Dr. Jessica Rousseau, pager [phone]. HISTORY OF PRESENT ILLNESS Ms Radha Martinez [...] reticulin fibrosis noted. The cytogenetics identified a [place] chromosome in 20 metaphases. The BCR-ABL1 P [...] t(9;22) metaphases. NGS is positive for ASXL1 p.Mzx879Nijpk*12 (20%) and p.Ers387* (3%). 06/17/2024: feeling quite symptomatic since the [...] Access Camargo CVC placed on 12/03/24 by [facility]. Social Work Seen and [...] prophylaxis: Ursodiol 600 mg two times daily. [facility]: [id number] [...] and 2.5 mg QID prn. # Stool Gilbert on CT - Will start titration of [...] by [facility] in [place], [place]. - Patient will notify team if any vision changes. # Blood Products # TACO - Requires infusion of platelets at a slower rate. # CMV- last checked 06/03/2025 # EBV - last checked March 2025 Activity: PAMP Level 4 (walks frequently) VTE Prophylaxis: Enoxaparin 40 mg subcutaneous once daily Blood Transfusions: Patient signed [id number] on 11/03/2024. Surrogate Decision Maker: Significant Other, Charles Iván Code Status: FULL CODE documented in this encounter H&P Notes * Carlee Armas APRN, C.N.P., D.N.P., M.S.N. - 07/02/2025 6:35 PM CDT SUBJECTIVE TRANSPLANT PHYSICIAN Dr. Jessica Rousseau, pager [phone]. CHIEF COMPLAINT Ms Radha Martinez is a [...] reticulin fibrosis noted. The cytogenetics identified a [place] chromosome in 20 metaphases. The BCR-ABL1 P [...] t(9;22) metaphases. NGS is positive for ASXL1 p.Xsh538Kaxha*12 (20%) and p.Eot726* (3%). 06/17/2024: feeling quite symptomatic since the [...] prophylaxis: Ursodiol 600 mg two times daily. [facility] ID Number: [id number] [...] by [facility] in [place], [place]. - Patient will notify team if any vision changes. # Blood Products # TACO - Requires infusion of platelets at a slower rate # CMV- last checked 06/03/2025 # EBV - last checked March 2025 Activity: PAMP Level 4 (walks frequently) VTE Prophylaxis: Enoxaparin 40 mg subcutaneous once daily Blood Transfusions: Patient signed [id number] on 11/03/2024. Surrogate Decision Maker: Significant Other, [...] encounter Consult Notes * Uma Estes APRN, C.N.Delbert, M.S.N. - 07/03/2025 4:10 PM CDTAssociated Order(s): IP CONSULT TO PALLIATIVE CARE [facility] PALLIATIVE CARE NEW CONSULT NOTE PATIENT: [...] have reviewed the patient???s record in the [place] Prescription Drug Monitoring Program (NE BALE COVERER Aware) with no unexpected findings. REVIEW OF [...] contact either myself or my Palliative Medicine consultant technology Dr. Lindsay Culver. Additionally, we can be reached at service pager [phone]. It is our pleasure to have the opportunity to participate in Radha's continued care. Thank you. Uma Etses APRN, C.N.P., M.S.N. Cosigned by Lindsay Culver M.D. at 07/03/2025 4:59 PM CDT Associated attestation - Lindsay Culver M.D. - 07/03/2025 4:59 PM CDT PALLIATIVE MEDICINE INCIDENT MANAGER COLLABORATIVE NOTE FOR ADVANCED PRACTICE PROVIDER (ANUPAM) I discussed the patient with the advanced dental practice manager, but I did not see the patient myself.I reviewed the pertinent clinical history, findings and diagnostics, and I discussed the assessmentand plan in detail with the APC. I am in agreement with the assessment and recommendations as documented in today's note written by Uma Estes APRN, C.N.P., M.S.N.. Please see her note for additional [...] to the bone marrow transplant service at [facility]. GI has been consulted for abdominal pain [...] were normal endoscopically. Biopsies were indeterminate for fbuvc-xckujg-vqhv disease. She has now been readmitted to [...] to the bone marrow transplant service at [facility]. GI has been consulted for abdominal pain [...] sigmoidoscopy showed biopsies that were indeterminate for vymcx-jtyhkn-vwvv disease although she has not had any improvement in symptoms with prednisone. She has been taking ibuprofen daily for pain. Her abdominal pain is likely multifactorial in the setting of gastritis with gastric ulcer as well as constipation with possible pelvic floor dysfunction. Her biopsies have been negative for CMV. Cindy had an excellent and thorough workup by [...] pelvic floor physicaltherapy and biofeedback program at [facility]. This patient was staffed with Dr. Cast, with the recommendations discussed with the primary team. Thank you for involving us in the care of this patient. Please page the GI consult pager at [phone] with any further questions or concerns. Juana Gandhi M.D. Gastroenterology & Hepatology Fellow PGY-6 Division of Gastroenterology & Hepatology [facility] Cosigned by Conrad Cast M.D. at 07/03/2025 [...] some diarrhea at prompted her workup for ktatg-nuurnq-kgpv disease. Recent EGD and colonoscopies are summarized [...] placement without difficulty. Auricular Acupressure Treatment Sheet [id number] were provided and reviewed with the patient. Uma Denis R.N. Palliative Care Nurse [facility] * Marry Buchanan R.N. - 07/03/2025 [...] Notes * Hospital Course - Jessica Avila APRN, C.N.P., M.S.N. - 07/02/2025 10:21 PM CDT [...] and ketone of 5. Urine culture negative. 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 [address] [place] [phone] 08/11/2025 9:00 AM CDT Nurse Only Section of Infectious Diseases in [place], [place] [address] [place] [phone] Jessica Rousseau M.B.B.S. [address] [place] [phone] 08/11/2025 1:00 PM CDT Clinical Support Department of Palliative Care in [place], [place] [address] [place] [phone] Uma Aly APRN, C.N.P., M.S.N. [address] [place] [phone] 08/13/2025 10:00 AM CDT Lab Department of Laboratory Medicine and Pathology, [facility] in [place], [place] [address] [place] [phone] Jessica Rousseau M.B.B.S. [address] [place] [phone] 08/13/2025 10:30 AM CDT [facility] [place], [place] [address] [place] [phone] Jessica Rousseau M.B.B.S. [address] [place] [phone] Nelli Parker, Pharm.D., R.Ph. [address] [place] [phone] 08/13/2025 11:00 AM CDT Nurse Only [facility] in [place], [place] [address] [place] [phone] Jessica Rousseau M.B.B.S. [address] [place] [phone] 08/13/2025 11:30 AM CDT Office Visit [facility] [place] Transplantation and Clinical Regeneration in [place], [place] [address] [place] [phone] Jessica Rousseau M.B.B.S. [address] [place] [phone] 08/13/2025 3:00 PM CDT Clinical Support Department of Palliative Care in [place], [place] [address] [place] [phone] Meghan Osorio M.D. [address] [place] [phone] Mary Garcia M.S.Vivi., L.I.C.S.W. [address] [place] [phone] 08/25/2025 8:00 AM CDT Telemedicine [facility], [place] Transplantation and Clinical Regeneration in [place], [place] [address] [place] [phone] Jessica Rousseau M.B.B.S. [address] [place] [phone] documented as of this encounter Procedures Procedure [...] 4 AM CDT 07/06/2025 10:48 AM CDT us Jessica Avila APRN, C.N.P., M.S.N. LAB BLOOD T ROPONIN Final Result [facility] [address] [place] [address], [place] DTL [facility] [address] [place] [address] * Troponin T, Baseline with 2 Hour/6 Hour Reflex Biomarker Panel (07/06/2025 8:01 AM CDT) Troponin T, Baseline, 5th gen <6 <=10 ng/L 07/06/2025 9:32 AM CDT DTL Blood (Blood, Venous) 07/06/2025 8:01 AM CDT 07/06/2025 8:50 AM CDT Satnam Basilio APRN.N.Jean., M.S.N. LAB BLOOD T ROPONIN Final Result Performing Organization Address [facility] de Phone Number [facility] [address] [place] [address], [facility] DTL [facility] [address] [place] [address] * ECG 12 Lead (07/06/2025 7:57 AM CDT) Pathologist [facility] Ventricular Rate ECG/Min 73 BPM MUSE TX Interval 174 ms MUSE QRSD Interval 82 ms MUSE QT Interval 380 ms MUSE QTC Interval 418 ms MUSE P [place] 51 degrees MUSE R [place] 6 degrees MUSE T Wave [place] 26 degrees MUSE 07/06/2025 7:57 AM CDT [...] change was found Reviewed by LEONEL Velasquez us Jessica Avila APRN, Satnam.N.P., M.S.N. ECG ORDERAB LES Final Result Performing Organization Address [facility] de Phone Number MUSE NA * CMV DNA Detect / Quant, Plasma (07/06/2025 5:47 AM CDT) Pathologist [facility] CMV DNA Detect/Quant, P Undetected Undetected IU/mL 07/06/2025 8:46 PM CDT [facility] Comment: Result in log IU/mL is Undetected. ----ADDITIONAL INFORMATION---- The quantification range of this assay is 35 to 10,000,000 IU/mL (1.54 log to 7.00 log IU/mL). Testing was performed using the lucrecia CMV test ([employer] Blood (Blood, Peripheral Draw) 07/06/2025 5:47 AM CDT 07/06/2025 8:12 AM CDT Jessica Avila APRN, C.N.P. , M.S.N. LAB MICROBIOLOGY - BLOOD ORDERABLES Final Result Performing Organization Address [facility] Co de Phone Number [facility] [address] [place] [address] [facility] [address] [place] [address] [place] [address] * EBV DNA Detect/Quant (07/06/2025 5:47 AM CDT) [facility] EBV DNA Detect/Quant, P Undetected Undetected IU/mL 07/06/2025 2:33 PM CDT [facility] Comment: Result in log IU/mL is Undetected. ----ADDITIONAL INFORMATION---- The quantification range of this assay is 35 to 100,000,000 IU/mL (1.54 log to 8.00 log IU/mL). Testing was performed using the lucrecia EBV test ([employer] Blood (Blood, Venous) 07/06/2025 5:47 AM CDT 07/06/2025 8:12 AM CDT Jessica Avila APRN, C.N.P. , M.S.N. LAB MICROBIOLOGY - BLOOD ORDERABLES Final Result Performing Organization Address [facility] Co de Phone Number [facility] [address] [place] [address] [facility] [address] [place] [address] [place] [address] * (ABNORMAL) CBC no call back, reflex [...] - 6.45 x10(9)/L 07/06/2025 6:45 AM CDT [facility] Comment:Rechecked Lymphocytes 1.19 0.95 - 3.07 x10(9)/L 07/06/2025 6:46 AM CDT DTL Monocytes 0.46 0.26 - 0.81 x10(9)/L 07/06/2025 6:46 AM CDT DTL Eosinophils 0.03 0.03 - 0.48 x10(9)/L 07/06/2025 6:46 AM CDT DTL Basophils 0.04 0.01 - 0.08 x10(9)/L 07/06/2025 6:46 AM CDT DTL Blood (Blood, Venous) 07/06/2025 5:47 AM CDT 07/06/2025 6:07 AM CDT us Jessica Avila APRN, C.N.P., M.S.N. LAB BLOOD N ON ADD-ON Final Result [facility] [address] [facility] [address] [place] [address] * Antibody Screen, RBC (with reflex Antibody ID) (07/06/2025 5:47 AM CDT) Antibody Screen Negative Negative 07/06/2025 6:58 AM CDT ETRM Blood (Blood, Venous) 07/06/2025 5:47 AM CDT 07/06/2025 6:22 AM CDT Satnam Basilio APRN.N.P., M.S.N. LAB BLOOD B ANK TEST ORDERABLES Final Result [facility] [address] ETRM [facility] [address] [place] [address] * Phosphorus Inorganic (07/06/2025 5:47 AM CDT) Phosphorus (Inorganic), S 4.4 2.5 - 4.5 mg/dL 07/06/2025 6:44 AM CDT DTL Blood (Blood, Venous) 07/06/2025 5:47 AM CDT 07/06/2025 6:06 AM CDT Jessica Avila APRN, C.N.P., M.S.N. LAB BLOOD A DD-ON Final Result [facility] 200 [place] [address] * Magnesium (07/06/2025 5:47 AM CDT) Magnesium, S 2.1 1.7 - 2.3 mg/dL 07/06/2025 6:44 AM CDT DTL Blood (Blood, Venous) 07/06/2025 5:47 AM CDT 07/06/2025 6:06 AM CDT Jessica Avila APRN C.N.P., M.S.N. LAB BLOOD A DD-ON Final Result [facility] [address] [place] [address], [facility] DTL [facility] [address] [place] [address] * (ABNORMAL) Comprehensive Metabolic Panel (07/06/2025 5:47 [...] M.S.N. LAB BLOOD A DD-ON Final Result [facility] [address] [facility] [address] [place] [address] * 25-Hydroxyvitamin D2 and D3 (07/06/2025 5:46 AM CDT) [facility] 25-Hydroxy D2 <4.0 ng/mL 07/07/2025 10:42 AM CDT [facility] 25-Hydroxy D3 27 ng/mL 07/07/2025 10:42 AM CDT [facility] 25-Hydroxy D Total 27 ng/mL 2024 10:42 AM CDT [facility] Comment: ----REFERENCE VALUE---- 25-HYDROXY D TOTAL (D2+D3) Optimum levels in the healthy population are 20-50. ----ADDITIONAL INFORMATION---- This test was developed and its performance characteristics determined by [facility] in a manner consistent with CLIA requirements. This test has not been cleared or approved by the U.S. Food and Drug Administration. Blood (Blood, Venous) 07/06/2025 5:46 AM CDT 07/06/2025 10:21 AM CDT us Jessica Avila APRN, C.NKatalinaP., M.S.N. LAB BLOOD A DD-ON Final Result [facility] [address] [place] [address] [facility] [address] [place] [address] [place] [address] * Porphyrins, Feces (07/05/2025 8:27 AM CDT) [...] developed and its performance characteristics determined by [facility] in a manner consistent with CLIA requirements. This test has not been cleared or approved by the U.S. Food and Drug Administration. Stool (Stool, 24 Hours) 07/05/2025 8:27 AM CDT 07/06/2025 4:38 PM CDT Natalya Carlos P.A.-C. LAB BODY FLUIDS AND STOOLS ORDERABLES Final Result [facility] [address] [place] [address], [facility] DT [address] [facility] [address] [place] [address] * Basic Metabolic Panel (07/05/2025 12:52 AM [...] 07/05/2025 1:02 AM CDT us Jessica Avila APRN C.N.P., M.S.N. LAB BLOOD A DD-ON Final Result [facility] [address] [place] [address], [facility] [address] [place] [address] * (ABNORMAL) CBC no call back, reflex [...] LAB BLOOD N ON ADD-ON Final Result [facility] [address] [place] [address], [facility] DTL [facility] [address] [place] [address] [facility] [address] [place] [address] * Basic Metabolic Panel (07/04/2025 5:31 AM CDT) [facility] Potassium, S 4.4 3.6 - 5.2 mmol/L [...] P.A.-C. LAB BLOOD ADD-ON Final Res ult [address] [address], [facility] [place] [address] * (ABNORMAL) CBC no call back, reflex T/S HGB <8 (07/04/2025 5:31 AM CDT) Hemoglobin 10.5(L) 11.6 - 15.0 g/dL 07/04/2025 [...] - 6.45 x10(9)/L 07/04/2025 6:12 AM CDT DHPM Lymphocytes 1.21 0.95 - 3.07 x10(9)/L 07/04/2025 6:12 AM CDT DTL Monocytes 0.41 0.26 - 0.81 x10(9)/L 07/04/2025 6:12 AM CDT DTL Eosinophils <0.03 0.03 - 0.48 x10(9)/L 07/04/2025 6:12 AM CDT DTL Basophils <0.03 0.01 - 0.08 x10(9)/L 07/04/2025 6:12 AM CDT DTL Blood (Blood, Venous) 07/04/2025 5:31 AM CDT 07/04/2025 6:01 AM CDT Natalya Carlos P.A.-C. LAB BLOOD NON ADD-ON Final Result [facility] [address] [place] [address], [facility] DTL [facility] [address] [place] [address] [facility] [address] [place] [address] * ANCA (Antineutrophil Cytoplasmic Antibodies) Vasculitis Panel (07/03/2025 10:26 AM CDT) Myeloperoxidase Ab, S <0.2 <0.4 (Negative ) U 07/03/2025 1:48 PM CDT SDSC Proteinase 3 Ab (PR3), S <0.2 <0.4 (Negative ) U 07/03/2025 1:48 PM CDT SDSC Blood (Blood, Venous) 07/03/2025 10:26 AM CDT 07/03/2025 12:52 PM CDT Natalya Ferrer-C. LAB BLOOD ADD-ON Final Res ult Performing Organization Address City/[facility]/ZIP Co de Phone Number [facility] [address] [place] [address] [facility] [address] [place] [address] * CRP (C-Reactive Protein) (07/03/2025 10:25 AM CDT) Pathologist [facility] C-Reactive Protein (CRP), S <3.0 <5.0 mg/L 07/03/2025 11:09 AM CDT [facility] Blood (Blood, Venous) 07/03/2025 10:25 AM CDT 07/03/2025 10:36 AM CDT Natalya Pena.A.-C. LAB BLOOD ADD-ON Final Res ult Performing Organization Address [facility] Co de Phone Number [facility] [address] [place] [address], [facility] [address] [place] [address] * (ABNORMAL) C4 Complement, Functional (07/03/2025 10:25 AM CDT) C4 Complement, Functional, S 61(H) 22 - 45 U/mL 07/07/2025 11:10 AM CDT [facility] Comment: ----ADDITIONAL INFORMATION---- This test was developed and its performance characteristics determined by [facility] in a manner consistent with CLIA requirements. This test has not been cleared or approved by the U.S. Food and Drug Administration. Blood (Blood, Venous) 07/03/2025 10:25 AM CDT 07/03/2025 1:14 PM CDT Natalya Carlos P.A.-C. LAB BLOOD NON ADD-ON Final Result Performing Organization Address City/[facility]/ZIP Co de Phone Number [facility] [address] [place] [address] [facility] [address] [place] [address] * (ABNORMAL) C3 Complement, Functional (07/03/2025 10:25 AM CDT) [facility] C3 Complement, Functional, S 51(H) 21 - 50 U/mL 07/07/2025 11:10 AM CDT [facility] Comment: ----ADDITIONAL INFORMATION---- This test was developed and its performance characteristics determined by [facility] in a manner consistent with CLIA requirements. This test has not been cleared or approved by the U.S. Food and Drug Administration. Blood (Blood, Venous) 07/03/2025 10:25 AM CDT 07/03/2025 1:14 PM CDT Natalya Carlos P.A.-C. LAB BLOOD NON ADD-ON Final Result Performing Organization Address [facility] Co de Phone Number [place] [phone] [place] [address] [place] [address] * Aminolevulinic Acid Dehydratase (ALAD) (07/03/2025 10:25 AM CDT) [facility] ALA Dehydratase 6.4 nmol/L/s ec 07/08/2025 8:16 [...] developed and its performance characteristics determined by [facility] in a manner consistent with CLIA requirements. This test has not been cleared or approved by the U.S. Food and Drug Administration. Blood (Blood, Venous) 07/03/2025 10:25 AM CDT 07/03/2025 11:09 AM CDT us Natalya Carlos P.A.-C. LAB GENETIC TESTING Final Result [facility] [address] [place] [address], [facility] DT [address] [facility] 200 [place] [address] * Uroporphyrinogen Decarboxylase (UPG D), Whole Blood [...] If clinically indicated, consider urine porphyrins analysis ([facility] test PQNRU). Please contact the [employer] consultant technology or genetic counselor stone polisher machine ( ) if you have any questions. 07/08/2025 8:16 AM CDT DTL Comment: ----ADDITIONAL INFORMATION---- High-Performance Liquid Chromatography (HPLC)/Incubation of Lysed Erythrocytes This test was developed and its performance characteristics determined by [facility] in a manner consistent with CLIA requirements. This test has not been cleared or approved by the U.S. Food and Drug Administration. Blood (Blood, Venous) 07/03/2025 10:25 AM CDT 07/03/2025 11:09 AM CDT Natalya Carlos P.A.-C. LAB BLOOD ADD-ON Final Res ult Performing Organization Address City/[facility]/ZIP Co de Phone Number [facility] [address] [place] [address], [facility] DTL 200 [facility] 200 [place] [address] * C1 Esterase Inhibitor, Functional Assay (07/03/2025 10:24 AM CDT) C1 Esterase Inhib, Functional, S >90 % 07/06/2025 3:05 PM CDT [facility] Comment: ----REFERENCE VALUE---- Normal: >67% Equivocal: 41-67% Abnormal: <41% Blood (Blood, Venous) 07/03/2025 10:24 AM CDT 07/03/2025 1:15 PM CDT Natalya Carlos P.A.-C. LAB BLOOD NON ADD-ON Final Result Performing Organization Address [facility] Co de Phone Number [facility] [address] [place] [address] [facility] [address] [place] [address] * Lactate (07/03/2025 1:02 AM CDT) Lactate, P 1.2 0.5 - 2.2 mmol/L 07/03/2025 1:37 AM CDT DT Blood (Blood, Venous) 07/03/2025 1:02 AM CDT 07/03/2025 1:10 AM CDT Carlee Armas APRN, C.N.P., D.N.P., M.S. N. LAB BLOOD NON ADD-ON Final Result Performing Organization Address City/[facility]/ZIP Co de Phone Number [facility] [address] [place] [address] * Lactate (07/03/2025 1:02 AM CDT) Pathologist [facility] Lactate, P 1.3 0.5 - 2.2 mmol/L 07/03/2025 1:37 AM CDT DTL Blood 07/03/2025 1:02 AM CDT 07/03/2025 1:10 AM CDT Satnam Ochoa APRN.N.P., Heaven.N.P., M.S. N. LAB BLOOD NON ADD-ON Final Result Performing Organization Address [facility] Co de Phone Number [facility] [address] [place] [address] * Bacteria / Helen Culture, Blood #2 (07/02/2025 9:48 PM CDT) Pathologist [facility] Bacteria/Yulia da Culture, Blood No growth after 5 days of incubation. 07/07/2025 11:02 PM CDT DT Blood (Blood, Peripheral Draw) 07/02/2025 9:48 PM CDT 07/02/2025 10:06 PM CDT Comment:Specimen Source Site : Blood Carlee Armas APRN C.N.P., D.N.P., M.S.N. LAB MICROBIOLOGY - GENERAL ORDERABLES Final Result Performing Organization Address City/[facility] Co de Phone Number [facility] [address] [place] [address] * Bacteria / Helen Culture, Blood #1 (07/02/2025 9:40 PM CDT) Pathologist [facility] Bacteria/Yulia da Culture, Blood No growth after 5 days of incubation. 07/07/2025 11:02 PM CDT DTL Blood (Blood, Peripheral Draw) 07/02/2025 9:40 PM CDT 07/02/2025 10:06 PM CDT Comment:Specimen Source Site : Blood Carlee Armas APRN C.N.P., D.N.P., M.S.N. LAB MICROBIOLOGY - GENERAL ORDERABLES Final Result [facility] [address] [place] [address], [facility] [address] [place] [address] * CBC with Differential, Blood (07/02/2025 9:40 PM CDT) Pathologist [facility] Hemoglobin 11.8 11.6 - 15.0 g/dL 07/02/2025 [...] Performing Organization Address City/[facility]/ZIP Co de Phone Number [facility] [address] [place] [address] * (ABNORMAL) GGT (Gamma-Glutamyltransferase) (07/02/2025 9:39 PM CDT) [facility] Gamma Glutamyltransferase (GGT), S 41(H) 5 - 36 U/L 07/02/2025 10:27 PM CDT DTL Blood (Blood, Venous) 07/02/2025 9:39 PM CDT 07/02/2025 9:59 PM CDT Satnam Ochoa APRN.N.P., D.N.P., M.S. N. LAB [place] [address] * CMV DNA Detect / Quant, Plasma (07/02/2025 9:39 PM CDT) Pathologist [facility] CMV DNA Detect/Quant, P Undetected Undetected IU/mL 07/04/2025 2:33 PM CDT [facility] Comment: Result in log IU/mL is Undetected. ----ADDITIONAL INFORMATION---- The quantification range of this assay is 35 to 10,000,000 IU/mL (1.54 log to 7.00 log IU/mL). Testing was performed using the lucrecia CMV test ([employer] Blood (Blood, Venous) 07/02/2025 9:39 PM CDT 07/03/2025 8:15 AM CDT Satnam Ochoa APRN.N.Jean., Heaven.N.P., M.S.N. LAB MICROBIOLOGY - BLOOD ORDERABLES Final Result Performing Organization Address [facility] Co de Phone Number [facility] [address] [place], [place] [id number] [place] [address] [place] [address] [place] [address] * Lipase (07/02/2025 9:39 PM CDT) Lipase, S 13 13 - 60 U/L 07/02/2025 10:27 PM CDT DTL Blood (Blood, Venous) 07/02/2025 9:39 PM CDT 07/02/2025 9:59 PM CDT Satnam Ochoa APRN.N.Jean., D.N.P., M.S. N. LAB BLOOD ADD-ON Final Result Performing Organization Address City/[facility]/ZIP Co de Phone Number [facility] [address] [place] [address], [facility] [address] [place] [address] * Amylase, Total (07/02/2025 9:39 PM CDT) Amylase, Total, S 28 28 - 100 U/L 07/02/2025 10:27 PM CDT DTL Blood (Blood, Venous) 07/02/2025 9:39 PM CDT 07/02/2025 9:59 PM CDT Satnam Ochoa APRN.N.P., D.N.P., M.S. N. LAB BLOOD ADD-ON Final Result Performing Organization Address City/[facility] Co de Phone Number [facility] [address] [place] [address] * Magnesium (07/02/2025 9:39 PM CDT) Magnesium, S 2.0 1.7 - 2.3 mg/dL 07/02/2025 10:27 PM CDT DT Blood (Blood, Venous) 07/02/2025 9:39 PM CDT 07/02/2025 9:59 PM CDT Satnam Ochoa APRN.N.P., Heaven.N.P., M.S. N. LAB BLOOD ADD-ON Final Result Performing Organization Address [facility] de Phone Number [facility] [address] [place] [address] * (ABNORMAL) Lactate for Sepsis with Reflex (07/02/2025 9:39 PM CDT) Lactate, P 2.3(H) 0.5 - 2.2 mmol/L 07/02/2025 10:23 PM CDT DTL Blood (Blood, Venous) 07/02/2025 9:39 PM CDT 07/02/2025 9:59 PM CDT Satnam Ochoa APRN.N.P., D.N.P., M.S. N. LAB BLOOD NON ADD-ON Final Result Performing Organization Address City/[facility]/ZIP Co de Phone Number [facility] [address] [place] [address], [facility] DTL [facility] [address] [place] [address] * (ABNORMAL) Comprehensive Metabolic Panel (07/02/2025 9:39 PM CDT) [facility] Potassium, S 4.3 3.6 - 5.2 [...] Performing Organization Address City/[facility]/ZIP Co de Phone Number [facility] [address] [place] [address] * (ABNORMAL) Dipstick, Urine (07/02/2025 9:29 PM [...] URINE ORDERABLES Final Result Performing Organization Address City/[facility]/ZIP Co de Phone Number [facility] [address] [place] [address], [facility] [address] [place] [address] * Osmolality, Urine (07/02/2025 9:29 PM CDT) Osmolality, U 912 150 - 1150 mOsm/kg 07/02/2025 9:52 PM CDT DTL Urine 07/02/2025 9:29 PM CDT 07/02/2025 9:29 PM CDT Jamari Ochoa APRNN.Delbert, Heaven.N.P., M.S. N. LAB URINE ORDERABLES Final Result Performing Organization Address [facility] de Phone Number [facility] [address] [place] [address] * pH, Random, Urine (07/02/2025 9:29 PM CDT) pH, Random, U 5.9 4.5 - 8.0 07/02/2025 9:52 PM CDT DTL Urine 07/02/2025 9:29 PM CDT 07/02/2025 9:29 PM CDT Satnam Ochoa APRN.N.P., D.N.P., M.S. N. LAB URINE ORDERABLES Final Result Performing Organization Address [facility] de Phone Number [facility] [address] [place] [address] * Microscopic Manual (07/02/2025 9:29 PM CDT) Microscopy Normal 07/02/2025 10:11 PM CDT DTL RBC <3 <3 /hpf 07/02/2025 10:11 PM CDT DTL WBC 4-10 /hpf 07/02/2025 10:11 PM CDT DTL Comment: ----REFERENCE VALUE---- <4 (Males) <11 (Females) Squamous Epithelial Cells, U 4-10 /hpf 07/02/2025 10:11 PM CDT DTL Urine 07/02/2025 9:29 PM CDT 07/02/2025 9:29 PM CDT Carlee Armas APRN, C.N.P., Heaven.N.P., M.S. N. LAB URINE ORDERABLES Final Result Performing Organization Address [facility] de Phone Number [facility] [address] [place] [address], [facility] [address] [place] [address] * Bacterial Culture, Aerobic + Susceptibility, Urine (07/02/2025 9:29 PM CDT) Urine Culture Urogenital microbiota, susceptibilities not performed per laboratory criteria. 07/04/2025 6:50 AM CDT DTL Urine (Urine, Midstream) 07/02/2025 9:29 PM CDT 07/02/2025 9:39 PM CDT Comment:Specimen Source Site : Urine Carlee Armas APRN, C.N.P., Heaven.N.P., M.S.N. LAB MICROBIOLOGY - GENERAL ORDERABLES Final Result Performing Organization Address [facility] de Phone Number [facility] [address] [place] [address], [facility] [address] [place] [address] * Urinalysis, with Microscopic: Urine, Midstream (07/02/2025 [...] URINE ORDERABLES Final Result Performing Organization Address City/[facility]/ZIP Co de Phone Number [facility] [address] [place] [address], [facility] DTL [facility] [address] [place] [address] * ECG 12 Lead (07/02/2025 9:20 PM CDT) Ventricular Rate ECG/Min 91 BPM MUSE TX Interval 176 ms MUSE QRSD Interval 74 ms MUSE QT Interval 346 ms MUSE QTC Interval 425 ms MUSE P [place] 61 degrees MUSE R [place] -5 degrees MUSE T Wave [place] 31 degrees MUSE 07/02/2025 9:20 PM CDT [...] change was found Reviewed by LEONEL Chavez Satnam Ochoa APRN.N.P., Heaven.N.P., M.S. N. ECG ORDERABLES Final Result Performing Organization Address City/[facility]/ZIP Co de Phone Number MUSE NA documented in this encounter Visit [...] mg (Dulcolax) 10 mg, oral, Once, On Sun07/04/25 at 1130, For 1 dose, Swallow whole. Do NOT crush, chew, or split tablet. Given 07/04/2025 12:25 PM CDT [address] tablet 10 mg (Dulcolax) 10 mg, oral, Once, On Sun07/04/25 at 1300, For 1 dose, Swallow whole. [...] 1 mg, intravenous, Daily, First dose on 07/03/25 at 0900 Given 07/03/2025 8:56 AM CDT 1 mg HYDROmorphone tablet 3 mg (Dilaudid) 3 mg, oral, Every 4 hours PRN, severe pain or score 7-10 of 10, Starting on 07/05/25 at 0941, Does patient have renal [...] or score 7-10 of 10, Starting on [facility] 07/04/25 at 1122, Does patient have renal [...] mL/hr, Administer over 2 Hours, Once, On [facility] 07/02/25 at 2245, For 1 dose New [...] mL/hr, Administer over 2 Hours, Once, On [facility] 07/02/25 at 2245, For 1 dose New [...] mg (Zofran) 4 mg, intravenous, Once, On 07/04/25 at 2100, For 1 dose Given 07/04/2025 [...] Daily, First dose (after last modification) on Sun07/04/25 at 0900, Dissolve in 240 mLs (8 ounces) of water prior to giving. Avoid mixing with starch-based thickened liquids. Given 07/06/2025 8:41 AM CDT 17 g Given 07/05/2025 8:46 AM CDT 17 g Given 07/04/2025 9:11 AM CDT 17 g polyethylene glycol powder packet 17 g (Miralax) 17 g, oral, Once, On Sun07/04/25 at [...] Every 6 hours PRN, nausea, Starting on Sun07/02/25 at 2048, First line for nausea. Use [...] medical 911 (Given - Provider: Chelsie Estrada R.N.)2053 (Given - Provider: Elizabeth Matos R.N.) 0847 (Given - Provider: Vickie RodNKatalina)2019 (Given - Provider: Elizabeth Matos R.N.) 0841 (Given - Provider: Vickie AlvaNKatalina) ARIPiprazole tablet 10 mg (Abilify) 10 mg, [...] tablet. 1225 (Given - Provider: Ashley Deleon R.N.) bisacodyL DR tablet 10 mg (Dulcolax) (COMPLETED) [...] R.N.) 1351 (Given - Provider: Chelsie Nielson RFritz) enoxaparin injection 40 mg (Lovenox) 40 mg, [...] 2100 2053 (Given - Provider: Elizabeth Matos R.N.) 2019 (Given - Provider: Elizabeth Matos R.N.) nystatin suspension 500,000 Units (Mycostatin) () 500,000 Units, swish & swallow, 4 times daily, First dose on Sun07/03/25 at 0800, For 3 days, Indications: Head, neck, and ENT infection 0911 (Given - Provider: Chelsie Estrada R.N.)1225 (Given - Provider: Vickie DriscollNKatalina)171 (Given - Provider: Sean Daley RKatalinaNKatalina)2053 (Given - Provider: Elizabeth Matos R.N.) OLANZapine tablet 5 mg (ZyPREXA) 5 mg, oral, Daily at bedtime, First dose on Sun07/03/25 at 2100 2053 (Given - Provider: Elizabeth Matos R.N.) 2019 (Given - Provider: Elizabeth Matos R.N.) ondansetron (PF) injection 4 mg (Zofran) (COMPLETED) 4 mg, intravenous, Once, On Sun07/04/25 at 2100, For 1 dose 2046 (Given - Provider: Elizabeth Matos R.N.) pantoprazole DR tablet 40 mg (Protonix) 40 mg, oral, 2 times daily before morning and evening meals, First dose (after last modification) on [facility] 07/02/25 at 2200, Swallow whole. Do NOT crush, chew, or split tablet. 0600 (Given - Provider: Romina Salazar R.N.)171 (Given - Provider: Sean Daley R.N.) 0847 (Given - Provider: Angelina Moreira R.N.)171 (Given - Provider: Chelsie Nielson R.N.) 0703 (Given - Provider: Romina Salazar R.N.) penicillin V potassium tablet 500 mg (Veetids) 500 mg, oral, 2 times daily, First dose on Sun07/03/25 at 0900, Drug Monitoring Program: Pharmacist to adjust medication dosing based on indication and drug clearance factors., Indications: Prophylaxis, medical 910 (Given - Provider: Chelsie Estrada R.N.)2053 (Given - Provider: Elizabeth Matos R.N.) 0846 (Given - Provider: Vickie RodNKatalina)2021 (Given - Provider: Elizabeth Matos R.N.) 0841 [...] (Miralax) (COMPLETED) 17 g, oral, Once, On 07/04/25 at 1800, For 1 dose, Dissolve in 240 mLs (8 ounces) of water prior to giving. Avoid mixing with starch-based thickened liquids. 1806 (Given - Provider: Angelina Moreira R.N.) posaconazole [...] 0841 (Given - Provider: Chelsie Nielson R.N.) predniSONE tablet 30 mg (Deltasone) 30 mg, oral, Daily, First dose (after last modification) on Sun07/06/25 at 0900 0841 (Given - Provider: Chelsie Nielson R.N.) predniSONE tablet 40 mg (Deltasone) (CANCELED) 40 [...] R.N.) 0846 (Given - Provider: Angelina Moreira R.N.)2019 (Given - Provider: Elizabeth Matos R.N.) 0841 (Given - Provider: Chelsie Nielson R.N.) sulfamethoxazole-trimeth oprim 400-80 mg per tablet 1 tablet (Bactrim) 1 tablet, oral, Daily, First dose on Sun07/03/25 at 0900, Drug Monitoring Program: Pharmacist to adjust medication dosing based on indication and drug clearance factors., Indications: Prophylaxis, medical 911 (Given - Provider: Chelsie Estrada R.N.) 0847 (Given - Provider: Angelina Moreira R.N.) 0841 (Given - Provider: Chelsie Nielson R.N.) PRN Medication Order 07/04/2025 07/05/2025 07/06/2025 alteplase 1 mg/mL injection 2 mg (Cathflo Activase) 2 mg, intra-catheter, As needed, Per catheter lumen. May repeat x1 dose in 2 hours, Starting on [facility] 07/02/25 at 2047, Maximum dose is 4 mg [...] 4 hours PRN, indigestion, dyspepsia, Starting on [facility] 07/02/25 at 2047 calcium carbonate chewable tablet 200 mg of calcium (Tums) 200 mg of calcium, oral, Daily PRN, heartburn, indigestion, Starting on [facility] 07/02/25 at 2047, Doses listed are in mg of elemental calcium. Take with food. 500 mg calcium carbonate contains 200 mg of elemental calcium. cyclobenzaprine tablet 5 mg (FlexeriL) 5 mg, oral, 2 times daily PRN, muscle spasms, Starting on [facility] 07/02/25 at 2047 0231 (Given - Provider: Milana Nuñez R.N.) diphenhydrAMINE capsule 25 mg (BenadryL) 25 mg, oral, Every 6 hours PRN, itching, Starting on [facility] 07/02/25 at 2047 diphenhydrAMINE injection 25 mg (BenadryL) 25 mg, intravenous, As needed, itching, mild medication or blood product reaction (itching, restlessness, fidgeting, temperature elevation less than 1 degree from pre-transfusion or mild chilling), Starting on [facility] 07/02/25 at 2047, For 2 doses, If ineffective, may repeat once after 15 minutes HYDROmorphone tablet 3 mg (Dilaudid) 3 mg, oral, Every 4 hours PRN, severe pain or score 7-10 of 10, Starting on 07/05/25 at 0941, Does patient have renal [...] Provider: Romina Salazar R.N.)0809 (Given - Provider: Angelnia Moreira R.N.) HYDROmorphone tablet 4 mg (Dilaudid) (CANCELED) 4 mg, oral, Every 4 hours PRN, severe pain or score 7-10 of 10, Starting on [facility] 07/04/25 at 1122, Does patient have renal impairment, frailty, or advanced age (avoid morphine) and unable to take oxycodone? No, Did the patient fail other oral opioids during hospitalization? Yes, Does the patient have documented allergies to oxycodone and/or morphine? Yes, Is the patient on hydromorphone chronically for pain? Yes 180 (Given - Provider: Angelina Moreira R.N.) hydrOXYzine tablet 25 mg (Atarax) 25 mg, oral, Every 6 hours PRN, anxiety, Starting on [place] 07/02/25 at 2048 2335 (Given - Provider: Milana Nuñez RKatalinaNKatalina) hyoscyamine tablet 125 mcg (Levsin) (CANCELED) 125 mcg, oral, Every 4 hours PRN, bladder spasms, Starting on 07/05/25 at 0940 1152 (Given - Provider: Chelsie Nielson R.N.)1842 (Given - Provider: Chelsie Nielson R.N.) hyoscyamine tablet 125 mcg (Levsin) 125 mcg, oral, Every 3 hours PRN, bladder spasms, Starting on Sun07/05/25 at 2033 0014 (Given - Provider: Brian Gonzalez R.N.)1203 (Given - Provider: Chelsie Nielson R.N.) OLANZapine tablet 2.5 mg (ZyPREXA) 2.5 mg, oral, 4 times daily PRN, nausea, Starting on Sun07/03/25 at 1607 0502 (Given - Provider: Milana Nuñez R.N.) OLANZapine tablet 5 mg (ZyPREXA) (COMPLETED) 5 mg, oral, Once as needed, Trouble sleeping, Starting on 07/06/25 at 0050, For 1 dose 0056 (Given - Provider: Romina Salazar R.N.) documented in this encounter Additional Health Concerns Infection Onset Date Last Indicated Resolved Time Protective Environment 03/02/2023 03/02/2023 Assessment Noted Time PHQ-9 Depression Total Score: 2 12/10/19 25 2:46 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 NPAmanda: [phone] [address] [place] [phone] PCP - General Family Medicine 04/25/23 documented as of this encounter
--- OUTSIDE RECORDS SUMMARY | 2025-07-11 09:45 | XMS_ITS | Encounter Summary ---
Author Organization [facility] Address [address] [place] [address] Care Team Providers Care Solid Die Cutter Name Role Phone Renzo Andres M.D. Primary Care Provider [phone] Reason for Referral * Specialty Diagnoses / Procedures Referred By Estefania acosta Referred To Contact [facility] [address] [place] [address] Phone: tel: [facility] Referral ID Status Reason Start Date Expiration Date Visits Re quested Visits Authorized Scheduling Instructions [id number] Encounter Details Date Type Department Care Team (Latest Contact Info) Description 07/11/2025 9:45 AM CDT - 07/11/2025 11:59 PM CDT Hospital Encounter [facility], [facility], [facility], Ninth Floor [address] [place] [phone] Jessica Rousseau M.B.B.S. [address] [place] [address] Lucy Stout R.N., BMT-CN, O.C.N. Leukemia Myeloid [...] things needed for daily living? No 07/02/2025 [facility] Utilities Answer Date Recorded In the past 12 months has e electric, gas, oil, or water company threatened to shut off services in your home? No 07/02/2025 Depression Answer Date Recor ded PHQ-9 Total Score (max 27) 12 07/08 Housing Stability Answer Date Recorded What is your living situation today? I have a [facility] place to live 07/02/2025 Education Answer Date Recorded What is the highest level of school you have completed or the highest degree you have received? Some college, no degree 04/24/2019 Comments No Sex and Gender Information Value Date Recorded Sex Assigned at Female 12/26/2018 8:37 PM [employer] Legal Sex Female 2:43 PM [employer] Gender Identity Female 12/26/2018 8:37 PM [employer] Sexual Orientation Choose not to disclose [...] SUBJECTIVE TRANSPLANT PHYSICIAN Dr. Jessica Rousseau, pager [phone]. CHIEF COMPLAINT Ms Radha Martinez is a [...] reticulin fibrosis noted. The cytogenetics identified a [place] chromosome in 20 metaphases. The BCR-ABL1 P [...] t(9;22) metaphases. NGS is positive for ASXL1 p.[id number]*12 (20%) and p.Ldd905* (3%). 06/17/2024: feeling quite symptomatic since the [...] Access Camargo CVC placed on 12/03/24 by [facility]. Social Work Seen and cleared [...] mg daily 06/24/2025; discontinued 06/22/[address] [place]. - S/p Prednisone burst from 05/28 to [...] Management of narcotic associated constipation with Stool [place] on CT - Per GI and Palliative [...] right eye. Wears glasses. - Followed by [facility] in [place], [place]. - Patient will notify team if [...] mg (Dilaudid) 4 mg Once * Lucy Stout, R.N., BMT-VIJI, O.C.N. - 07/11/2025 9:45 AM CDT Reason for patient visit: Triage follow-up due to multiple calls to [facility] on Sunday, July 10 Symptoms reported to service: Generalized pain, nausea, diarrhea, abdominal tenderness Orders provided by service: PO Kytril, Maalox, instructed patient to take home supply of PO hydromorphone suspension, stool sample for visual inspection Additional notes: Patient was able to produce one medium sized [place] stool chart type 4 stool. Patient forgot [...] or using prune juice. Follow-up: Return to [facility] on 07/16 for BMT follow up and follow up with GI. Addendum: Patient left toilet hats in hospital room. documented in this encounter Plan of Treatment Upcoming Encounters Date Type Department Care Team (Late st Contact Info) Description 08/11/2025 8:00 AM CDT Office Visit Department of Palliative Care in [place], [place] [address] [place] [phone] Meghan Osorio M.D. [address] [place] [phone] 08/11/2025 9:00 AM CDT Nurse Only Section of Infectious Diseases in [address] [phone] Jessica Rousseau M.B.B.S. [address] [place] [phone] 08/11/2025 1:00 PM CDT Clinical Support Department of Palliative Care in [address] [phone] Uma Aly APRN, C.N.P., M.S.N. [address] [place] [phone] 08/13/2025 10:00 AM CDT Lab Department of Laboratory Medicine and Pathology, [facility], in [place], [place] [address] [place] [phone] Jessica Rousseau M.B.B.S. [address] [place] [phone] 08/13/2025 10:30 AM CDT Office Visit Pedro [facility] for Transplantation and Clinical Regeneration in [place], [place] [address] [place] [phone] Jessica Rousseau M.B.B.S. [address] [place] [phone] Nelli Parker Pharm.D., R.Ph. [address] [place] [phone] 08/13/2025 11:00 AM CDT Nurse Only [facility] Transplantation and Clinical Regeneration in [place], [place] [address] [place] [phone] Jessica Rousseau M.B.B.S. [address] [place] [phone] 08/13/2025 11:30 AM CDT Office Visit [facility] Transplantation and Clinical Regeneration in [place], [place] [address] [place] [phone] Jessica Rousseau M.B.B.S. [address] [place] [phone] 08/13/2025 3:00 PM CDT Clinical Support Department of Palliative Care in [place], [place] [address] [place] [phone] Meghan Osorio M.D. [address] [place] [phone] Mary Garcia M.S.W., L.I.C.S.W. [address] [place] [phone] 08/25/2025 8:00 AM CDT Telemedicine [facility] Transplantation and Clinical Regeneration in [place], [place] [address] [place] [phone] Jessica Rousseau M.B.B.S. [address] [place] [address] Scheduled Referrals Name Type Priority Associated Diagnoses [...] documented as of this encounter Care Teams Solid Die Cutter Relationship Specialty Start Date End Date Renzo Andres M.D. [address] [place] [address] [place] [phone] PCP - General Family Medicine 04/25/23 documented as of this encounter
--- OUTSIDE RECORDS SUMMARY | 2025-07-14 08:00 | XMS_ITS | Encounter Summary ---
Author Organization [facility] Address [address] [place] [address] Care Team Providers Care Steel Grinder Name Role Phone Renzo Andres M.D. Primary Care Provider [phone] Reason for Referral * Outpatient (Routine) - Closed Specialty Diagnoses / Procedures Referred By Estefania acosta Referred To Contact Palliative Medicine Meghan Osorio M.D. [address] [place] [phone] Phone: tel: fax: [facility] Referral ID Status Reason Start Date Expiration Date Visits Re quested Visits Authorized [id number] Closed 07/14/2025 01/13/2027 1 1 Scheduling Instructions Benja Magdaleno video 07/21 at 11am Reason for Visit * Outpatient (Routine) - Closed Specialty Diagnoses / Procedures Referred By Contheidy t Referred To Contact Palliative Medicine Felicia Watt APRN, C.N.P., M.S.N. [address] [place] [phone] Phone: tel: fax: [facility] Referral ID Status Reason Start Date Expiration Date Visits Re quested Visits Authorized [id number] Closed 05/25/2025 11/24/2026 1 1 Encounter Details Date Type Department Care Team (Late st Contact Info) Description 07/14/2025 8:00 AM CDT Telemedicine Department of Palliative Care in [place], [place] 200 [place] [address] Monica Tolbert M.D., M.S. 200 [place] [phone] Meghan Osorio M.D. 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 No 07/02/2025 [facility] Utilities Answer Date Recorded In the past 12 months has th e electric, gas, oil, or water company threatened to shut off services in your home? No 07/02/2025 Depression Answer Date Recor ded PHQ-9 Total Score (max 27) 12 07/08 Housing Stability Answer Date Recorded What is your living situation today? I have a [facility] place to live 07/02/2025 Education Answer Date Recorded What is the highest level of school you have completed or the highest degree you have received? 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 Opioid Toxicity Review: We have reviewed the risks of opioid therapy and completed an assessment oftoxicities. Opioid Aberrant Use Concerns: None Opioid Risk Score: Last Opioid Risk Tool charting Flowsheet Row Comprehensive Visit from 04/21/2025 in Department of Palliative Care in [place], [place] ORT Total Score (max 26) 2 [...] Office Visit Department of Palliative Care in [place], [place] [address] [place] [phone] Meghan Osorio M.D. [address] [place] [phone] 08/11/2025 9:00 AM CDT Nurse Only Section of Infectious Diseases in [place], [place] [address] [place] [phone] Jessica Rousseau M.B.B.S. [address] [place] [phone] 08/11/2025 1:00 PM CDT Clinical Support Department of Palliative Care in [place], [place] [address] [place] [phone] Uma Aly APRN, C.N.P., M.S.N. [address] [place] [phone] 08/13/2025 10:00 AM CDT Lab Department of Laboratory Medicine and Pathology, [facility], in [place], [place] [address] [place] [phone] Jessica Rousseau M.B.B.S. [address] [place] [phone] 08/13/2025 10:30 AM CDT Office [facility] in [place], [place] [address] [place] [phone] Jessica Rousseau M.B.B.S. [address] [place] [phone] Nelli Parker, Pharm.D., R.Ph. [address] [place] [phone] 08/13/2025 11:00 AM CDT Nurse Only [facility] in [place], [place] [address] [place] [phone] Jessica Rousseau M.B.B.S. [address] [place] [phone] 08/13/2025 11:30 AM CDT Office Visit [facility] in [place], [place] [address] [place] [phone] Jessica Rousseau M.B.B.S. [address] [place] [phone] 08/13/2025 3:00 PM CDT Clinical Support Department of Palliative Care in [place], [place] [address] [place] [phone] Meghan Osorio M.D. [address] [place] [phone] Mary Garcia M.S.W., L.I.C.S.W. [address] [place] [phone] 08/25/2025 8:00 AM CDT Telemedicine [facility] in [place], [place] [address] [place] [phone] Jessica Rousseau M.B.B.S. [address] [place] [phone] Scheduled Referrals Name Type Priority Associated Diagnoses [...] documented as of this encounter Care Teams Steel Grinder Relationship Specialty Start Date End Date Renzo Andres M.D. [address] [place] [phone] PCP - General Family Medicine 04/25/23 documented as of this encounter
--- OUTSIDE RECORDS SUMMARY | 2025-07-16 08:00 | XMS_ITS | Encounter Summary ---
Author Organization [facility] Address [address] [place] [id number] Care Team Providers Care Solution Consultant Name Role Phone Renzo Andres M.D. Primary Care Provider Reason for Visit * Outpatient (Routine) - Closed Specialty Diagnoses / Procedures Referred By Estefania t Referred To Contact Pharmacy Jessica Rousseau M.B.B.S. [address] [place] [phone] Phone: tel: fax: [facility] Referral ID Status Reason Start Date Expiration Date Visits Re quested Visits Authorized [id number] Closed 07/02/2025 01/01/2027 1 1 Encounter Details Date Type Department Care Team (Latest Contact Info) Description 07/16/2025 8:00 AM CDT [facility] [place], [place] [address] [place] [phone] Jessica Rousseau M.B.B.S. [address] [place] [address] [phone] Nelli Parker, Pharm.D., R.Ph. 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 No 07/02/2025 [facility] Utilities Answer Date Recorded In the past 12 months has [facility] electric, gas, oil, or water company threatened to shut off services in your home? No 07/02/2025 Depression Answer Date Recor ded PHQ-9 Total Score (max 27) 12 07/08 Housing Stability Answer Date Recorded What is your living situation today? I have a [facility] place to live 07/02/2025 Education Answer Date Recorded What is the highest level of school you have completed or the highest degree you have received? Some college, no degree 04/24/2019 Comments No Sex and Gender Information Value Date Recorded Sex Assigned at Female 12/26/2018 8:37 PM MANAGER CHEMICAL Legal Sex Female 2:43 PM MANAGER CHEMICAL Gender Identity Female 12/26/2018 8:37 PM MANAGER CHEMICAL Sexual Orientation Choose not to disclose 2020 3:46 PM CDT documented as of this encounter Last Filed Vital Signs Vital Sign Reading Time Taken Comments Blood Pressure 162/122 07/16/2025 7:59 AM CDT Pulse 97 07/16/2025 7:59 AM CDT Temperature 36.7 C (98.1 F) 07/16/2025 7:59 AM CDT Respiratory Rate - - Oxygen Saturation - - Inhaled Oxygen Concentration - - Weight 106 kg (234 lb 9.1 oz) 07/16/2025 7:59 AM CDT Height - - Body Mass Index 35.67 06/30/2025 7:34 PM CDT documented in this encounter Progress Notes * Nelli Parker, Pharm.D., R.Ph. - 07/16/2025 8:00 AM CDT Medication Management Services ([facility]) SUBJECTIVE Radha Martinez is a 35 y.o. female, who is seen by the [facility] Pharmacist for targeted medication review. She was referred by Liliam Godoy. per departmental standard of care. Patient does [...] Problem List[7]. Ms. 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 Budesonide initiated 06/24/25, discontinued 07/02/25. Prednisone burst also initiated 06/23/25. Hyoscyamine initiated 07/05/25 for abdominal pain/cramping. Antifungal prophylaxis: No history of invasive fungal [...] and reconciled with the patient. She reports olanzapine 2.5 mg she does not have and stool softener not using; list updated accordingly. 2. GVHD monitoring Ms. Martinez continues on prednisone 20 mg daily, decreased 07/13/25 and plan for next decrease to 10 mg daily on 07/20/25. She continues to experience abdominal pain. She reports that nausea has resolved, only taking prochlorperazine once in the mornings prophylactically; she is not using ondansetronor olanzapine. She denies diarrhea and constipation. She denies rash. Her Cr is 0.86 mg/dL and LFTs normal, she is no longer on ursodiol. Her BP was 162/122 mm Hg today on no antihypertensives; per provider, plan to resume pre-transplant HCTZ. 3. Neuropathy/Pain Ms. Martinez is following with palliative for ongoing neuropathy and pain; she will also see GI later today. She continues on duloxetine 120 mg daily, buprenorphine 5 mcg/hour patch, hyoscyamine 0.125 mg in the morning, hydromorphone 4 mg at bedtime. She shared that leg pain under good control with the buprenorphine patch and abdominal pain is 4/10. 4. New prescriptions Per collaborative practice agreement, additional refills were sent for posaconazole. Patient and/or caregiver(s) expressed understanding of, and [...] 4 (four)hours as needed for indigestion (dyspepsia). 354 mL 1 ARIPiprazole (Abilify) 10 mg tablet Take 1 [...] 5 HYDROmorphone (Dilaudid) 1 mg/mL liquid Take 2 mL (2 mg total) by mouth every 6 (six) hours as needed for pain Indication: Chronic Pain/Nonacute Pain. (Patient taking differently: Take 2 mg by mouth every 6 (six) hours as needed for pain Indication: Chronic Pain/Nonacute Pain. Patient taking 4 mg every 6 hours) 60 mL 0 hyoscyamine (Levsin) 0.125 mg tablet Take 1 tablet (0.125 mg total) by mouth every 4 (four) hours as needed for bladder spasms. For abdominal pain/cramping/spasm 30 tablet 1 melatonin 5 mg tablet Take 5 mg by mouth at bedtime. naloxone (Narcan) 4 mg/actuation nasal spray Administer 1 spray (4 mg total) into nostril(s) once for 1 dose. Use 1 spray in 1 nostril. Repeat with second device in other nostril after 2-3 minutes ifno or minimal response. (Patient not taking: Reported on 06/30/2025) 2 each 0 OLANZapine (ZyPREXA) 2.5 mg tablet Take 1 tablet (2.5 mg total) by mouth 4 (four) times a day as needed (nausea). 16 tablet 1 OLANZapine (ZyPREXA) 5 mg tablet Take 1 tablet (5 mg total) by mouth at bedtime. 30 tablet 1 ondansetron ODT (Zofran-ODT) 4 mg disintegrating tablet Dissolve 1-2 tablets (4- 8 mg total) in the mouth every 8 (eight) hours as needed for nausea or vomiting. 20 tablet 1 pantoprazole (Protonix) 40 mg EC tablet Take 1 tablet (40 mg total) by mouth 2 (two) times a day before morning and evening meals. 60 tablet 1 penicillin V potassium (Veetids) 500 mg tablet Take 1 tablet (500 mg total) by mouth 2 (two) times a day. 60 tablet 11 posaconazole (NoxafiL) [address] tablet Take 3 tablets (300 mg total) by mouth daily. 90 tablet 0 predniSONE (Deltasone) 10 mg tablet Take 1 tablet (10 mg total) by mouth as directed. Take 3 tablets 07/06-07/12, 2 tablets 07/13-07/19, 1 tablet 07/20-07/26, 1/2 tab 07/27 -08/02 and then stop 45 tablet 0 prochlorperazine (Compazine) 10 mg tablet Take 1 tablet (10 mg total) by mouth every 6 (six) hours as needed for nausea. 30 tablet 2 sennosides-docusate sodium (Senokot-S) 8.6-50 mg per tablet Take 1 tablet by mouth 2 (two) times a day. 60 tablet 1 sulfamethoxazole-trimethoprim (Bactrim) 400-80 mg per tablet Take 1 tablet by mouth daily. 60 tablet 1 No current facility-administered medications for this visit. [3] Family History Problem Relation Name Age of Onset Hypertension Mother gabrielle jay Depression Mother gabrielle jay Anxiety disorder Mother gabrielle jay Cystic fibrosis Brother No Known Problems Son Rashid Depression Brothvanessa martinez Anxiety disorder Brother shena martinez Psychiatric Maternal Grandmother nancy Breast cancer Maternal Grandmother nancy Psychiatric Maternal Grandfather silvia merchant Skin cancer Paternal Grandfather Berkley vega [4] [...] Hernandez M.D., Ph.D.; Location: [facility] [7] Patient Active Problem List Diagnosis Leukemia [...] Cell (HCC) Nausea And Vomiting Abdominal Pain Pain Left Lower Quadrant documented in this encounter Plan of Treatment Upcoming Encounters Date Type Department Care Team (Late st Contact Info) Description 08/11/2025 8:00 AM CDT Office Visit Department of Palliative Care in [place], [place] [address] [place] [phone] Meghan Osorio M.D. [address] [place] [phone] 08/11/2025 9:00 AM CDT Nurse Only Section of Infectious Diseases in [address] [phone] Jessica Rousseau M.B.B.S. [address] [place] [phone] 08/11/2025 1:00 PM CDT Clinical Support Department of Palliative Care in [place], [place] [address] [place] [phone] Uma Aly APRN, C.N.P., M.S.N. [address] [place] [phone] 08/13/2025 10:00 AM CDT Lab Department of Laboratory Medicine and Pathology, [facility], in [place], [place] [address] [place] [phone] Jessica Rousseau M.B.B.S. [address] [place] [phone] 08/13/2025 10:30 AM CDT [facility] [place], [place] [address] [place] [phone] Jessica Rousseau M.B.B.S. [address] [place] [phone] Nelli Parker Pharm.D., R.Ph. [address] [place] [address] [phone] 08/13/2025 11:00 AM CDT [facility] in [place], [place] [address] [place] [phone] Jessica Rousseau M.B.B.S. [address] [place] [phone] 08/13/2025 11:30 AM CDT [facility] in [place], [place] [address] [place] [phone] Jessica Rousseau M.B.B.S. [address] [place] [phone] 08/13/2025 3:00 PM CDT Clinical Support Department of Palliative Care in [place], [place] [address] [place] [phone] Meghan Osorio M.D. [address] [place] [address] [phone] Mary Garcia M.S.Vivi., L.I.C.S.W. [address] [place] [phone] 08/25/2025 8:00 AM CDT Telemedicine [facility] in [place], [place] [address] [place] [phone] Jessica Rousseau M.B.B.S. 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 [address] [place] [phone] PCP - General Family Medicine 04/25/23 documented as of this encounter
--- OUTSIDE RECORDS SUMMARY | 2025-07-16 08:30 | XMS_ITS | Encounter Summary ---
Author Organization [facility] Address [address] [place] [address] Care Team Providers Care Riveter Pneumatic Name Role Phone Renzo Andres M.D. Primary Care Provider [phone] Reason for Referral * Transplant (Routine) - Closed Specialty Diagnoses / Procedures Referred By Contheidy t Referred To Contact Transplant Becky Hernandez APRN, C.N.PKatalina, D.N.P. [address] [place] [phone] Phone: tel: fax: [facility] Referral ID Status Reason Start Date Expiration Date Visits Re quested Visits Authorized [id number] Closed 07/16/2025 01/15/2027 1 1 Scheduling Instructions Please schedule with ANUPAM for 60 minutes. Patient type: Allo Over 100 Visit Type: Return Scheduling Preferences Option 1: ANUPAM only Option 2: ANUPAM/RN joint visit Other Scheduling Instructions: Schedule 07/22-07/24 depending on ANUPAM availability Primary MD: Dr Rousseau RN Team: Rst Bmt Team Two Henderson Reason for Visit * Reason Comments Nurse Visit * Transplant (Routine) - Closed Specialty Diagnoses / Procedures Referred By Contac t Referred To Contact Transplant Jessica Rousseau M.B.B.S. [address] [place] [address] Phone: tel: fax: [facility] Referral ID Status Reason Start Date Expiration Date Visits Re quested Visits Authorized [id number] Closed 07/02/2025 01/01/2027 1 1 Encounter Details Date Type Department Care Team (Latest Contact Info) Description 07/16/2025 8:30 AM CDT Office Visit Pedro sanchez [facility] Trans[facility] Regeneration in [place], [place] [address] [place] [phone] Jessica Rousseau M.B.B.S. [address] [place] [phone] Becky Hernandez, KARON, C.N.P., D.N.P. [address] [place] [phone] Lida Olivas, R.NKatalina 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); Transplant Stem Cell (HCC); Abnormal Finding Of Blood Chemistry Unspecified Social History Tobacco Use Types Packs/Day Years [...] things needed for daily living? No 07/02/2025 [facility] Utilities Answer Date Recorded In the past 12 months has th e electric, gas, oil, or water company threatened to shut off services in your home? No 07/02/2025 Depression Answer Date Recor ded PHQ-9 Total Score (max 27) 12 07/08 Housing Stability Answer Date Recorded What is your living situation today? I have a [facility] place to live 07/02/2025 Education Answer Date Recorded What is the highest level of school you have completed or the highest degree you have received? Some college, no degree 04/24/2019 Comments No Sex and Gender Information Value Date Recorded Sex Assigned at Female 12/26/2018 8:37 PM SALES TEAM MANAGER Legal Sex Female 2:43 PM SALES TEAM MANAGER Gender Identity Female 12/26/2018 8:37 PM SALES TEAM MANAGER Sexual Orientation Choose not to disclose 2020 3:46 PM CDT documented as of this encounter Progress Notes * Becky Hernandez, KARON, C.N.P., D.N.P. - 07/16/2025 8:30 AM CDT SUBJECTIVE TRANSPLANT PHYSICIAN Dr. Jessica Rousseau, pager [phone]. CHIEF COMPLAINT Ms. 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 She presents to the clinic today for evaluation persistent abdominal pain, nausea and diarrhea. (Currently day +218) HISTORY OF PRESENT ILLNESS Please refer to multiple prior notes in EMR for complete hematologic history: Ms. Martinez is a 35 y.o. 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 At the time of diagnosis, there was grade 3 reticulin fibrosis noted. The cytogenetics identified a [place] chromosome in 20 metaphases. The BCR-ABL1 P [...] t(9;22) metaphases. NGS is positive for ASXL1 p.[id number]*12 (20%) and p.Pgz922* (3%). 06/17/2024: feeling quite symptomatic since the [...] Access Camargo CVC placed on 12/03/24 by [facility]. Social Work Seen and cleared [...] prophylaxis: Ursodiol 600 mg two times daily. [facility] [[email or web address]] ID Number: [id number] [...] Martinez comes to the clinic today for ongoing follow up. She states that overall her abdominal pain and cramping has improved. She rates her pain a ???for ???out of 10. He statesthe pain typically occurs some time in the morning and then sometimes as well in the evening. She has been taking hyoscyamine 0.125 every 4 hours as needed for abdominal pain and cramping which has helped some. She is taking Compazine every morning to control any nausea symptoms. She states that she has a good appetite and drinking over 2 L of fluid daily. She is drinking both tea and water. She is passing a formed bowel movement in the morning and in the evening. She denies any mouth sores or d ifficulty with swallowing. She denies any chest pain, cough, shortness breath or wheezing. She has not noticed any new skin changes or rash. Her energy level is diminished but she is exercising by walking her dog 2 times a day. She continues to take prednisone in his on a taper plan. She recently reduced her prednisone to 20 mg on July 13 implants to reduce her prednisone to 10 mg on July 20. She states that last evening her face was a bit itchy but she did not notice a rash. She did play some Vanicream and this took care of her symptoms. She has a follow up appointment later today with GI. Of note she states that her grandma recently and this has been causing her someextra stress and anxiety. She was teary during the conversation today. She states that she has a lot of social supports and has a good understanding of self-care. She states that she has had difficulty with staying asleep at night in the last week. She currently is taking melatonin 5 mg at bedtime wondering if she can take anything else or increase the dose. REVIEW OF SYSTEMS Per interval history Current Medications[1] Active Home Medications Medication Sig Taking acyclovir (Zovirax) 400 mg tablet Take 1 tablet (400 mg total) by mouth 2 (two) times a day. alum-mag hydroxide-simeth (Maalox) 200-200-20 mg/5 mL suspension Take 30 mL by mouth every 4 (four)hours as needed for indigestion (dyspepsia). ARIPiprazole (Abilify) 10 mg tablet Take 1 tablet (10 mg total) by mouth daily. Dose change 12/02/2024 buprenorphine (Butrans) 5 mcg/hour Place 1 patch [...] Patient taking 4 mg every 6 hours hyoscyamine (Levsin) 0.125 mg tablet Take 1 tablet (0.125 mg total) by mouth every 4 (four) hours as needed for bladder spasms. For abdominal pain/cramping/spasm melatonin 5 mg tablet Take 5 mg [...] tablet by mouth daily. OBJECTIVE VITAL SIGNS Temperature: [36.7 ??C] 36.7 ??C Blood Pressure: (162-166)/(105-122) 166/105 Pulse Rate: [97-98] 98 PHYSICAL EXAM General: Patient is alert, oriented, somewhat teary during the visit due to the recent loss of her paternal grandma. Eyes: Anicteric sclera, EOMI, PERRLA Mouth: Oral mucosa pink, moist, and without ulceration or lesions. Skin: Skin is warm and dry. No rashes or lesions. Heart: S1, S2. Regular rate and rhythm. No murmurs, rubs or gallops. Lungs: Clear to auscultation bilaterally and throughout. Non-labored breathing, respiratory effort normal. Abdomen: Soft, nondistended, nontender to palpation throughout. Bowel sounds present in all four quadrants. Extremities: Bilateral lower extremities without edema or cyanosis. No calf tenderness. Neuro: CN 2 through 12 grossly intact with appropriate speech and affect Mental: Alert and oriented to person, place, time, and situation KPS: 80% DIAGNOSTIC FINDINGS Recent Results (from the past 24 hours) Albumin Collection Time: 07/16/25 7:55 AM Result Value Albumin, S 4.3 Alkaline Phosphatase Collection Time: 07/16/25 7:55 AM Result Value Alkaline Phosphatase, S 103 ALT (Alanine Aminotransferase) Collection Time: 07/16/25 7:55 AM Result Value Alanine Aminotransferase (ALT), S 39 BUN (Blood Urea Nitrogen) Collection Time: 07/16/25 7:55 AM Result Value BUN (Blood Urea Nitrogen), S 16 Calcium, Total Collection Time: 07/16/25 7:55 AM Result Value Calcium, Total, S 9.3 Creatinine with Estimated GFR Collection Time: 07/16/25 7:55 AM Result Value Creatinine 0.86 Estimated GFR (eGFR) 90 Magnesium Collection Time: 07/16/25 7:55 AM Result Value Magnesium, S 2.0 Potassium Collection Time: 07/16/25 7:55 AM Result Value Potassium, S 3.9 Sodium Collection Time: 07/16/25 7:55 AM Result Value Sodium, S 139 Bilirubin, Total Collection Time: 07/16/25 7:56 AM Result Value Bilirubin, Total, P <0.2 CBC no call back, reflex T/S HGB <8 Collection Time: 07/16/25 7:56 AM Result Value Hemoglobin 12.3 Hematocrit 38.4 Erythrocytes 4.50 MCV 85.3 RBC Distrib Width 15.0 Platelet Count 217 Leukocytes 7.6 Neutrophils 5.65 Lymphocytes 1.41 Monocytes 0.49 Eosinophils 0.05 Basophils 0.04 Glucose, Fasting Collection Time: 07/16/25 7:56 AM Result Value Glucose, P 130 (H) Last Intake 2 LD (Lactate Dehydrogenase) Collection Time: 07/16/25 7:56 AM Result Value [facility] LD 197 ASSESSMENT / PLAN # Diffuse Abdominal Pain, worse to LLQ # Persistent Nausea and Vomiting since early 05/2025; Query GI GVHD, R/O other etiologies IMAGING/LABS - 05/28/25 CT abdomin/pelvis: no abnormal findings. - 06/01/25 EGD with biopsy negative for GVHD. - Repeat 06/12/25 CT revealed no acute abnormalities, moderate stool burden. - 06/24/2025 CT Abd/pelvis/chest, normal with previous resolution of the ground- glass opacities from 06/05/2025. - 06/25 right upper quadrant ultrasound and [...] of imaging abnormality, no marked splenomegaly. - Initial lactate resulted mildly elevated at 2.3 mmol/L, improved to 1.2 mmol/L after 1 liter 0.9%NS bolus. - Urinalysis and urine culture mostly normal with a glucose of 300 and ketone of 5. Urine culture negative. 07/03 CRP<3, Proteinase 3 Ab <0.2, Myeloperoxidae <0.2 - Porphyria, C3, C4, C1 esterase, ANCA <0.2 TREATMENT - Initiated Budesonide 05/20/2025; increased to 6 mg daily 06/24/2025; discontinued 06/22/[address] Rousseau. - Pantoprazole 40 mg PO BID. - Dilaudid to 2 mg q 6 hrs - Will continue on Buprenorphine patch - Initiated Levsin on 07/05 with improvement in symptoms - GIH consult today, 07/16/2025, and recommended Protonix 40 mg po BID for 8 weeks, then daily thereafter, MiraLAX daily. Hyoscyamine prn. Ordered colonoscopy with random biopsies and TI exam, awaiting scheduling. EGD in 3 months (around 09/2025) Avoid all NSAIDs - Palliative Medicine outpatient follow-up scheduled for 07/14/25. # Nausea/Vomiting - Compazine, Zofran and olanzapine. Currently taking compazine in the am as needed # Management of narcotic associated constipation with Stool [place] on CT - Per GI and Palliative care, started MiraLAX daily and Senna 2 tabs BID, may increase as needed. - May also consider adding Linzess per GI (72 mcg-290 mcg). # Oral Thrush - Noted per EGD from 06/26/2025 as noted above. - Initiated Clotrimazole troches on 06/26/2025, transitioned to oral Nystatin per patient preference on 06/27/2025 (EOT: 07/03/2025). # Hypertension - Pt states she has been anxious over the last week with the of her grandma and memories of her dads passing. B/P today was 162/122 and recheck was 166/105. Previous B/P in the last month have been intermittently 130-160's/100's She had previously been on hydrochlorothiazide 25 mg daily therefore, I restarted hydrochlorothiazide 25 mg daily. Instructed pt to check her B/P twice daily and bring to her follow-up appt next week. She was instructed to go to ED if she experiences chest pain orshortness of breath. # Esophageal/Chest pain - resolved - Pain [...] # Immunodeficiency (HCC) secondary immunosuppressive medication - Bone marrow biopsy done on 02/18/25, MRD negative, Non sorted chimerism 100 % donor ( 3 loci) and BCR/ABL1 p210 mRNA negative. - Peripheral sort chimerism from 06/25 showed 90% donor DNA in CD 3 and 100% donor DNA in CD 33 - Continue to check RT PCR [id number] on peripheral blood every 6 weeks, most recently undetected on 06/23/25. Plan to re-check in Aug 13 - Last BM Bx from 02/18/25 was normal, no BCR-ABL1 detected. - BM biopsy June 15, 2025- MRD negative. 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 - Tacrolimus discontinued 04/17/2025. - EGD and Flex Sigmoidoscopy obtained 06/26/2025 demonstrating oral thrush, gastritis, non-bleedinggastric ulcer, and duodenitis. Pathology demonstrating scattered apoptosis in colonic mucosa, indeterminate for GVHD. - Initiated Prednisone burst 40 mg PO daily as of 07/02/[address] Rousseau-, Currently on a prednisone taper plan of reducing my 10 mg weekly. Prednisone tapered to 20 mg on 07/13 and plan to taper to 10 mg on 07/20 and 5 mg (2) tab on 07/27 for one week then stop. ACUTE GVHD (CIBMTR CRITERIA) Current Severity 07/02/25 [...] Insomnia - Continues on Melatonin 5 mg qHS and discussed she may take another 5 mg at night if she wakes up to try and help with sleep. - Ativan on hold with buprenorphine patch on 05/28/2025. - Olanzapine should help with this as well. # Peripheral neuropathy - Continues on buprenorphine patch 5 mcg and hydromorphone 2 mg every 6 hours prn pain - Previous discussion that hydromorphone should not [...] process. Trial Atarax PRN for anxiety. - Unfortunately she missed her psychiatry f/u on 07/15. Requested new follow-up appt and awaiting scheduling. 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 Has only peripheral vision in right eye. Wears glasses. - Followed by [facility] in [place], [place]. - Patient will notify team if any vision changes. # Blood Products # TACO - Requires infusion of platelets at a slower rate. # CMV- last checked 07/06/25 pending # EBV - last checked 07/06/25 negative # Disposition - Follow-up labs and provider visit on in one week to re-check B/P after starting hydrochlorothiazide and pred taper - Initiated hydrochlorothiazide 25 mg daily. Pt instructed to check B/P twice a day, keep record and bring to her next follow-up appt. - Next follow-up labs, pharmacy, BMT RN and Dr. Rousseau on 08/13 - Continue prednisone 20 mg daily and instructed to taper to 10 mg daily on 07/20 - Follow-up palliative on 07/21 - Awaiting scheduling of colonoscopy (ordered by GI) [1] No current facility-administered medications for this visit. * Lida Olivas, R.N. - 07/16/2025 8:30 AM CDT S/P Allo Transplant for Chronic Myelogenous Leukemia. Day 0 = 12/10/2024 (218 days). Please see previous notes regarding patient's history. Patient seen today in conjunction with Becky Hernandez APRN, COIN MACHINE SERVICE REPAIRER, DNP. Please see their note for a full systems review. KPS: 80 Plan of care discussed with provider: Patient's transition from Hospital Based Outpatient to Outpatient BMT was completed on 12/31/2024. New medication changes with this visit: Start taking Hydrochlorothiazide Pending Results: CMV/EBV Interim Plans: 07/16 GI appointment, Palliative follow up on 07/21 Lab Plan: Allo/CMV/EBV with return visit. BCR/ABL every 6 weeks, next with 08/13 visit Future BMT Appointments: Return in 1 week with allo labs ANUPAM visit Start taking blood pressure at home twice a day. Report via the portal if abnormal to provider. Message sent to Dr Rousseau to refill Dilaudid on 07/15. Patient stated today that if possible, oral pills versus the liquid is preferred. Message sent after appointment requesting pills be prescribed. All questions answered, patient verbalized understanding of plan, patient will call with any additional questions or concerns prior to return appointment. Lida Olivas R.N. documented in this encounter Plan of Treatment Upcoming Encounters Date Type Department Care Team (Late st Contact Info) Description 08/11/2025 8:00 AM CDT Office Visit Department of Palliative Care in [place], [place] [address] [place] [phone] Meghan Osorio M.D. [address] [place] [phone] 08/11/2025 9:00 AM CDT Nurse Only Section of Infectious Diseases in [place], [place] [address] [place] [phone] Jessica Rousseau M.B.B.S. [address] [place] [phone] 08/11/2025 1:00 PM CDT Clinical Support Department of Palliative Care in [place], [place] [address] [place] [phone] Uma Aly APRN, C.N.P., M.S.N. [address] [place] [phone] 08/13/2025 10:00 AM CDT Lab Department of Laboratory Medicine and Pathology, [facility], in [place], [place] [address] [place] [phone] Jessica Rousseau M.B.B.S. [address] [place] [phone] 08/13/2025 10:30 AM CDT [facility] [place], [place] [address] [place] [phone] Jessica Rousseau M.B.B.S. [address] [place] [phone] Nelli Parker Pharm.D., R.Ph. [address] [place] [phone] 08/13/2025 11:00 AM CDT Nurse Only [facility] Transplantation and Clinical Regeneration in [place], [place] [address] [place] [phone] Jessica Rousseau M.B.B.S. [address] [place] [phone] 08/13/2025 11:30 AM CDT Office Visit [facility] for Transplantation and Clinical Regeneration in [place], [place] [address] [place] [phone] Jessica Rousseau M.B.B.S. [address] [place] [phone] 08/13/2025 3:00 PM CDT Clinical Support Department of Palliative Care in [place], [place] [address] [place] [phone] Meghan Osorio M.D. [address] [place] [phone] Mary Garcia M.S.W., L.I.C.S.W. [address] [place] [phone] 08/25/2025 8:00 AM CDT Telemedicine [facility] for Transplantation and Clinical Regeneration in [place], [place] [address] [place] [phone] Jessica Rousseau M.B.B.S. [address] [place] [phone] Scheduled Referrals Name Type Priority Associated Diagnoses Order Schedule Transplant Bone marrow office visit (clinic) Outpatient Referral Routine Expected: 07/22/2025 (Approximate), Expires: 10/16/2026 documented as of this encounter Results * (ABNORMAL) Glucose, Fasting (07/22/2025 8:47 AM CDT) Glucose, P 171(H) 70 - 100 mg/dL 07/22/2025 10:02 AM CDT DTL Last Intake 2 hr 07/22/2025 8:57 AM CDT DTL Blood (Blood, Venous) 07/22/2025 8:47 AM CDT 07/22/2025 8:57 AM CDT Becky Hernandez APRN, C.N.P., D.N.P. LAB BL OOD NON ADD-ON Final Result [facility] [address] [facility] [address] [place] [address] * (ABNORMAL) CBC no call back, reflex T/S HGB <8 (07/22/2025 8:47 AM CDT) Pathologist [facility] Hemoglobin 12.6 11.6 - 15.0 g/dL 07/22/2025 9:30 AM CDT DTL Hematocrit 38.6 35.5 - 44.9 % 07/22/2025 9:30 AM CDT DTL Erythrocytes 4.55 3.92 - 5.13 x10(12)/L 07/22/2025 9:30 AM CDT DTL MCV 84.8 78.2 - 97.9 fL 07/22/2025 9:30 AM CDT DTL RBC Distrib Width 15.0 12.2 - 16.1 % 07/22/2025 9:30 AM CDT DTL Platelet Count 191 157 - 371 x10(9)/L 07/22/2025 9:30 AM CDT DTL Leukocytes 5.2 3.4 - 9.6 x10(9)/L 07/22/2025 9:30 AM CDT DTL Neutrophils 3.91 1.56 - 6.45 x10(9)/L 07/22/2025 9:30 AM CDT DHPM Lymphocytes 1.00 0.95 - 3.07 x10(9)/L 07/22/2025 9:30 AM CDT DTL Monocytes 0.20(L) 0.26 - 0.81 x10(9)/L 07/22/2025 9:30 AM CDT DTL Eosinophils 0.04 0.03 - 0.48 x10(9)/L 07/22/2025 9:30 AM CDT DTL Basophils 0.03 0.01 - 0.08 x10(9)/L 07/22/2025 9:30 AM CDT DTL Blood (Blood, Venous) 07/22/2025 8:47 AM CDT 07/22/2025 8:59 AM CDT Becky Hernandez APRN, C.N.P., D.N.P. LAB BL OOD NON ADD-ON Final Result [facility] [address] [place] [address], [facility] DTL [facility] [address] [place] [address] [facility] [address] [place] [address] * EBV DNA Detect/Quant (07/22/2025 8:46 AM CDT) [facility] EBV DNA Detect/Quant, P Undetected Undetected IU/mL 07/23/2025 11:28 AM CDT [facility] Comment: Result in log IU/mL is Undetected. ----ADDITIONAL INFORMATION---- The quantification range of this assay is 35 to 100,000,000 IU/mL (1.54 log to 8.00 log IU/mL). Testing was performed using the lucrecia EBV test ([employer] Blood (Blood, Venous) 07/22/2025 8:46 AM CDT 07/22/2025 11:35 AM CDT Satnam Das APRNNDustin, D.N.P. LAB MICROBIOLOGY - BLOOD ORDERABLES Final Result [facility] [address] [place] [address] [facility] [address] [place] [address] [place] [address] * CMV DNA Detect / Quant, Plasma (07/22/2025 8:46 AM CDT) [facility] CMV DNA Detect/Quant, P Undetected Undetected IU/mL 07/23/2025 11:24 AM CDT [facility] Comment: Result in log IU/mL is Undetected. ----ADDITIONAL INFORMATION---- The quantification range of this assay is 35 to 10,000,000 IU/mL (1.54 log to 7.00 log IU/mL). Testing was performed using the lucrecia CMV test ([employer] Blood (Blood, Venous) 07/22/2025 8:46 AM CDT 07/22/2025 11:06 AM CDT Satnam Das APRNNDustin, D.N.P. LAB MICROBIOLOGY - BLOOD ORDERABLES Final Result Performing Organization Address City/[facility]/ZIP Co de Phone Number [facility] [address] [place] [address] [facility] [address] [place] [address] [place] [address] * LD (Lactate Dehydrogenase) (07/22/2025 8:46 AM CDT) [facility] LD 171 122 - 222 U/L 07/22/2025 9:51 AM CDT DTL Blood (Blood, Venous) 07/22/2025 8:46 AM CDT 07/22/2025 9:05 AM CDT Jamari Das APRNN.PKatalina, D.N.P. LAB BL OOD NON ADD-ON Final Result Performing Organization Address City/[facility]/ZIP Co de Phone Number [facility] [address] [place] [address] * Sodium (07/22/2025 8:46 AM CDT) Sodium, S 139 135 - 145 mmol/L 07/22/2025 9:56 AM CDT DTL Blood (Blood, Venous) 07/22/2025 8:46 AM CDT 07/22/2025 8:56 AM CDT Becky Hernandez APRN, C.N.P., D.N.P. LAB BL OOD ADD-ON Final Result Performing Organization Address City/[facility] Co de Phone Number [facility] [address] [place] [address] * Potassium (07/22/2025 8:46 AM CDT) Potassium, S 3.8 3.6 - 5.2 mmol/L 07/22/2025 9:56 AM CDT DTL Blood (Blood, Venous) 07/22/2025 8:46 AM CDT 07/22/2025 8:56 AM CDT Becky Hernandez APRN, C.N.P., D.N.P. LAB BL OOD ADD-ON Final Result Performing Organization Address City/[facility]/ZIP Co de Phone Number [facility] 200 [place] [address] * Magnesium (07/22/2025 8:46 AM CDT) Magnesium, S 2.1 1.7 - 2.3 mg/dL 07/22/2025 9:56 AM CDT DTL Blood (Blood, Venous) 07/22/2025 8:46 AM CDT 07/22/2025 8:56 AM CDT Becky Hernandez APRN C.N.P., D.N.P. LAB BL OOD ADD-ON Final Result [facility] [address] [place] [address], [facility] [place] 200 [place] [address] * Creatinine with Estimated GFR (07/22/2025 8:46 AM CDT) Creatinine 0.81 0.59 - 1.04 mg/dL 07/22/2025 9:56 AM CDT DTL Estimated GFR (eGFR) >90 >=60 mL/min/BSA 07/22/2025 9:56 AM CDT DTL Comment: Estimated GFR calculated using the 2020 CKD_EPI creatinine equation. Blood (Blood, Venous) 07/22/2025 8:46 AM CDT 07/22/2025 8:56 AM CDT Becky Hernandez APRN, C.N.P., D.N.P. LAB BL OOD ADD-ON Final Result [facility] 200 [place] [address], [facility] [place] 200 [place] [address] * Calcium, Total (07/22/2025 8:46 AM CDT) Calcium, Total, S 9.3 8.6 - 10.0 mg/dL 07/22/2025 9:56 AM CDT DTL Blood (Blood, Venous) 07/22/2025 8:46 AM CDT 07/22/2025 8:56 AM CDT Becky Hernandez APRN C.N.P., D.N.P. LAB BL OOD ADD-ON Final Result [facility] 200 [place] [address], [facility] [place] 200 [place] [address] * BUN (Blood Urea Nitrogen) (07/22/2025 8:46 AM CDT) BUN (Blood Urea Nitrogen), S 15 6 - 21 mg/dL 07/22/2025 9:56 AM CDT DTL Blood (Blood, Venous) 07/22/2025 8:46 AM CDT 07/22/2025 8:56 AM CDT Becky Hernandez APRN, C.N.P., D.N.P. LAB BL OOD ADD-ON Final Result [facility] [address] [place] [address], [facility] [place] 200 [place] [address] * Bilirubin, Total (07/22/2025 8:46 AM CDT) Bilirubin, Total, P 0.3 0.0 - 1.2 mg/dL 07/22/2025 9:24 AM CDT METH Blood (Blood, Venous) 07/22/2025 8:46 AM CDT 07/22/2025 9:01 AM CDT Becky Hernandez APRN, C.N.P., D.N.P. LAB BL OOD ADD-ON Final Result [facility] [address] [place] [address], [facility] METH [facility] [address] [place] [address] * AST (Aspartate Aminotransferase) (07/22/2025 8:46 AM CDT) Aspartate Aminotransferase (AST), P 20 8 - 43 U/L 07/22/2025 9:24 AM CDT METH Blood (Blood, Venous) 07/22/2025 8:46 AM CDT 07/22/2025 9:01 AM CDT Becky Hernandez APRN, C.N.P., D.N.P. LAB BL OOD ADD-ON Final Result Performing Organization Address City/[facility]/ZIP Co de Phone Number [facility] [address] METH [facility] 200 [place] [address] * ALT (Alanine Aminotransferase) (07/22/2025 8:46 AM CDT) Alanine Aminotransferase (ALT), S 34 7 - 45 U/L 07/22/2025 9:56 AM CDT DTL Blood (Blood, Venous) 07/22/2025 8:46 AM CDT 07/22/2025 8:56 AM CDT Becky Hernandez APRN C.N.P., D.N.P. LAB BL OOD ADD-ON Final Result Performing Organization Address City/[facility]/ZIP Co de Phone Number [facility] [address] [facility] [place] 200 [place] [address] * Alkaline Phosphatase (07/22/2025 8:46 AM CDT) Alkaline Phosphatase, S 88 35 - 104 U/L 07/22/2025 9:56 AM CDT DTL Blood (Blood, Venous) 07/22/2025 8:46 AM CDT 07/22/2025 8:56 AM CDT Becyk Hernandez APRN, C.N.P., D.N.P. LAB BL OOD ADD-ON Final Result Performing Organization Address City/[facility] Co de Phone Number [facility] 200 [place] [address], [facility] 200 [place] [address] * Albumin (07/22/2025 8:46 AM CDT) Albumin, S 4.2 3.5 - 5.0 g/dL 07/22/2025 9:56 AM CDT DTL Blood (Blood, Venous) 07/22/2025 8:46 AM CDT 07/22/2025 8:56 AM CDT Becky Hernandez APRN, C.N.P., D.N.P. 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 [address] [place] [address] [place] [phone] PCP - General Family Medicine 04/25/23 documented as of this encounter
--- OUTSIDE RECORDS SUMMARY | 2025-07-16 09:30 | XMS_ITS | Encounter Summary ---
Author Organization [facility] Address [address] [place] [address] Care Team Providers Care Minute Clerk For Basic Traffic Name Role Phone Renzo Andres M.D. Primary Care Provider [phone] Encounter Details Date Type Department Care Team (Late st Contact Info) Description 07/16/2025 9:30 AM CDT Patient Outreach [facility] in [place], [place] [address] [place] [address] Ta Medrano Social History Tobacco Use Types [...] things needed for daily living? No 07/02/2025 [facility] Utilities Answer Date Recorded In the past 12 months has th e electric, gas, oil, or water company threatened to shut off services in your home? No 07/02/2025 Depression Answer Date Recor ded PHQ-9 Total Score (max 27) 12 07/08 Housing Stability Answer Date Recorded What is your living situation today? I have a [facility] place to live 07/02/2025 Education Answer Date Recorded What is the highest level of school you have completed or the highest degree you have received? Some college, no degree 04/24/2019 Comments No Sex and Gender Information Value Date Recorded Sex Assigned at Female 12/26/2018 8:37 PM FISH HATCHERY MANAGER Legal Sex Female 2:43 PM FISH HATCHERY MANAGER Gender Identity Female 12/26/2018 8:37 PM FISH HATCHERY MANAGER Sexual Orientation Choose not to disclose 2020 3:46 PM CDT documented as of this encounter Progress Notes * Ta Medrano - 07/16/2025 9:32 AM CDT Gas Card Request Radha provided transportation assistance in the form of a gas card for 07/16/25 to assist with gas costs to and from appointments. I informed patient that transportation funds are limited and based on availability and eligibility criteria. Encouraged them to reach out to the patient navigation teamwith any questions. [facility] [phone] documented in this encounter Plan of Treatment Upcoming Encounters Date Type Department Care Team (Late st Contact Info) Description 08/11/2025 8:00 AM CDT Office Visit Department of Palliative Care in [place], [place] [address] [place] [phone] Meghan Osorio M.D. [address] [place] [phone] 08/11/2025 9:00 AM CDT Nurse Only Section of Infectious Diseases in [place], [place] [address] [place] [phone] Jessica Rousseau M.B.B.S. [address] [place] [phone] 08/11/2025 1:00 PM CDT Clinical Support Department of Palliative Care in [place], [place] [address] [place] [phone] Uma Ayl APRN, C.N.P., M.S.N. [address] [place] [phone] 08/13/2025 10:00 AM CDT Lab Department of Laboratory Medicine and Pathology, [facility], in [place], [place] [address] [place] [phone] Jessica Rousseau M.B.B.S. [address] [place] [phone] 08/13/2025 10:30 AM CDT [facility] in [place], [place] [address] [place] [phone] Jessica Rousseau M.B.B.S. [address] [place] [phone] Nelli Parker Pharm.D., R.Ph. [address] [place] [phone] 08/13/2025 11:00 AM CDT Nurse Only [facility] in [place], [place] [address] [place] [phone] Jessica Rousseau M.B.B.S. [address] [place] [phone] 08/13/2025 11:30 AM CDT Office Visit [facility] in [place], [place] [address] [place] [phone] Jessica Rousseau M.B.B.S. [address] [place] [phone] 08/13/2025 3:00 PM CDT Clinical Support Department of Palliative Care in [place], [place] [address] [place] [phone] Meghan Osorio M.D. [address] [place] [phone] Mary Garcia M.S.Vivi., L.I.C.S.W. [address] [place] [phone] 08/25/2025 8:00 AM CDT Telemedicine [facility] Transplantation and Clinical Regeneration in [address] [phone] Jessica Rousseau M.B.B.S. [address] [place] [phone] documented as of this encounter Visit Diagnoses Not on filedocumented in this encounter Additional Health Concerns Infection Onset Date Last Indicated Resolved Time Protective Environment 03/02/2023 03/02/2023 Assessment Noted Time PHQ-9 Depression Total Score: 12 025 9:42 AM CDT documented as of this encounter Care Teams Minute Clerk For Basic Traffic Relationship Specialty Start Date End Date Renzo Andres M.D. [address] [place] [address] [place] [phone] PCP - General Family Medicine 04/25/23 documented as of this encounter
--- OUTSIDE RECORDS SUMMARY | 2025-07-16 09:40 | XMS_ITS | Encounter Summary ---
Author Organization [facility] Address [address] [place] [address] Care Team Providers Care Chronic Specialist Name Role Phone Renzo Andres M.D. Primary Care Provider [phone] Reason for Referral * Gastrointestinal (Routine) - Authorized Specialty Diagnoses / Procedures Referred By Contac t Referred To Contact Diagnoses Gastric Ulcer Unspecified As Acute Or Chronic Without Hemorrhage Or Perforation Procedures EGD (EsophagoGastroDuodenoscopy) Restricted Derrick Cruz Jr., M.D., M.S. 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 [address] [place] [phone] Phone: tel: fax: [facility] Referral ID Status Reason Start Date Expiration Date V isits Requested Visits Authorized [id number] Closed Specialty Services Required 07/06/2025 01/05/2027 1 1 Encounter Details Date Type Department Care Team (Latest Contact Info) Description 07/16/2025 9:40 AM CDT Comprehensive Visit Division of Gastroenterology in [place], [place] [address] [place] [phone] Jessica Avila APRN C.N.P., M.S.N. [address] [place] [phone] Derrick Cruz Jr., M.D., M.S. 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 No 07/02/2025 [facility] Utilities Answer Date Recorded In the past 12 months has e electric, gas, oil, or water company threatened to shut off services in your home? No 07/02/2025 Depression Answer Date Recor ded PHQ-9 Total Score (max 27) 12 07/08 Housing Stability Answer Date Recorded What is your living situation today? I have a [facility] place to live 07/02/2025 Education Answer Date Recorded What is the highest level of school you have completed or the highest degree you have received? Some college, no degree 04/24/2019 Comments No Sex and Gender Information Value Date Recorded Sex Assigned at Female 12/26/2018 8:37 PM ASSEMBLER SEMICONDUCTOR Legal Sex Female 2:43 PM ASSEMBLER SEMICONDUCTOR Gender Identity Female 12/26/2018 8:37 PM ASSEMBLER SEMICONDUCTOR Sexual Orientation Choose not to disclose 2020 [...] Care Providers: Renzo Andres M.D. (General) [address] [facility] [phone] PATIENT NAME: Radha Martinez HOME ADDRESS:[address] [place] [phone] SUBJECTIVE Chief Complaint/Reason for Consult: chronic abdominal [...] well formedand brown in color, described as Lonoke type 4, not associated with worsening of [...] worsen her underlying constipation. CC: Jessica Avila, SAMPLE MAKER, * This visit was conducted under the direct supervision of strategic consultant Dr. Harris. Derrick Cruz Jr., M.D., [...] Camargo; Surgeon: Brianna Hernandez M.D., Ph.D.; Location: [facility] OR [3] Current Outpatient Medications: acyclovir (Zovirax) [...] young woman, 35 years of age, from [place], [place]. Her history is remarkable for chronic [...] polyethylene glycol, hyoscyamine, and prednisone directed toward rcmer-[id number]-czmu disease. Her left lower quadrant abdominal pain [...] Aron Harris M.D. CT CT Job ID: [id number]/dlb documented in this encounter Plan of Treatment Upcoming Encounters Date Type Department Care Team (Late st Contact Info) Description 08/11/2025 8:00 AM CDT Office Visit Department of Palliative Care in [place], [place] [address] [place] [phone] Meghan Osorio M.D. [address] [place] [phone] 08/11/2025 9:00 AM CDT Nurse Only Section of Infectious Diseases in [place], [place] [address] [place] [phone] Jessica Rousseau M.B.B.S. [address] [place] [phone] 08/11/2025 1:00 PM CDT Clinical Support Department of Palliative Care in [address] [phone] Uma Aly APRN, C.N.P., M.S.N. [address] [place] [phone] 08/13/2025 10:00 AM CDT Lab Department of Laboratory Medicine and Pathology, [facility], in [place], [place] [address] [place] [phone] Jessica Rousseau M.B.B.S. [address] [place] [phone] 08/13/2025 10:30 AM CDT Office Visit Pedro [facility] Trans[facility] Clinical Regeneration in [place], [place] [address] [place] [phone] Jessica Rousseau M.B.B.S. [address] [place] [phone] Nelli Parker, Pharm.D., R.Ph. [address] [place] [phone] 08/13/2025 11:00 AM CDT Nurse Only [facility] in [place], [place] [address] [place] [phone] Jessica Rousseau M.B.B.S. [address] [place] [phone] 08/13/2025 11:30 AM CDT Office Visit Pedro Lanza laura [facility] Transplantation and Clinical Regeneration in [place], [place] [address] [place] [phone] Jessica Rousseau M.B.B.S. [address] [place] [phone] 08/13/2025 3:00 PM CDT Clinical Support Department of Palliative Care in [place], [place] [address] [place] [phone] Meghan Osorio M.D. [address] [place] [phone] Mary Garcia M.S.W., L.I.C.S.W. [address] [place] [phone] 08/25/2025 8:00 AM CDT Telemedicine [facility] Trans[facility] and Clinical Regeneration in [place], [place] [address] [place] [phone] Jessica Rousseau M.B.B.S. 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 [address] [place] [phone] PCP - General Family Medicine 04/25/23 documented as of this encounter
--- OUTSIDE RECORDS SUMMARY | 2025-07-21 11:00 | XMS_ITS | Encounter Summary ---
Author Organization [facility] Address [address] [place] [phone] Care Team Providers Care Customs Inspector Name Role Phone Renzo Andres M.D. Primary Care Provider [phone] Reason for Referral * Outpatient (Routine) - Authorized Specialty Diagnoses / Procedures Referred By Contac t Referred To Contact Palliative Medicine Meghan Osorio M.D. [address] [place] [address] Phone: tel: fax: [facility] Referral ID Status Reason Start Date Expiration Date V isits Requested Visits Authorized [id number] Authorized 07/21/2025 01/20/2027 1 1 Scheduling Instructions 08/11 or 08/13 coordinated with other RST appts * Outpatient (Routine) - Authorized Specialty Diagnoses / Procedures Referred By Contac t Referred To Contact Social Work Diagnoses Anxiety Meghan Osorio M.D. [address] [place] [address] Phone: tel: fax: [facility] Referral ID Status Reason Start Date Expiration Date V isits Requested Visits Authorized [id number] Authorized 07/21/2025 01/20/2027 1 1 Scheduling Instructions If in-person, please coordinate with other appts in RST. Reason for Visit * Outpatient (Routine) - Closed Specialty Diagnoses / Procedures Referred By Contac t Referred To Contact Palliative Medicine Meghan Osorio M.D. [address] [place] [phone] Phone: tel: fax: [facility] Referral ID Status Reason Start Date Expiration Date Visits Re quested Visits Authorized [id number] Closed 07/14/2025 01/13/2027 1 1 Encounter Details Date Type Department Care Team (Late st Contact Info) Description 07/21/2025 11:00 AM CDT Telemedicine Department of Palliative Care in [place], [place] [address] [place] [phone] Meghan Osorio M.D. [address] [place] [phone] Anxiety (Primary Dx); Pain Neuropathic; Abdominal Pain; Depression Major Recurrent Moderate (HCC); Anxiety Generalized Disorder; Transplant Stem Cell (HCC); Leukemia Myeloid Chronic BCR/ABL Positive Remission [...] your living situation today? I have a [facility] place to live 07/02/2025 Education Answer Date Recorded What is the highest level of school you have completed or the highest degree you have received? Some college, no degree 04/24/2019 Comments No Sex and Gender Information Value Date Recorded Sex Assigned at Female 12/26/2018 8:37 PM RADIO PROGRAM CHECKER Legal Sex Female 2:43 PM RADIO PROGRAM CHECKER Gender Identity Female 12/26/2018 8:37 PM RADIO PROGRAM CHECKER Sexual Orientation Choose not to disclose 2020 3:46 PM CDT documented as of this encounter Progress Notes * Meghan Osorio M.D. - 07/21/2025 11:00 AM CDT [facility] Outpatient Palliative Care Virtual Note SUBJECTIVE CHIEF COMPLAINT/REASON FOR VISIT Radha Martinez is a 35 y.o. 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 established patient visit Visit conducted via virtual visit. The following person/people were also present during the discussion: None Medical Record review was conducted prior to the virtual visit. Date of last in-person clinic visit: 05/25/25 The patient verbally consented to an audio recording of their visit to assist with the completion of documentation. Interval History: At last visit, recommended to reduce Zyprexa 2.5 mg at night due to concern for akathisia. If akathisia symptoms continued, she was instructed to discontinue Zyprexa altogether. Cancer-related pain was stable on Butrans and duloxetine. She continued to have abdominal pain and was awaiting further evaluation by GI. Since our last visit, she was able to be seen by Gastroenterology on 07/16 and is planned for colonoscopy on 07/30 to further clarify cause of her significant abdominal pain, including ruling out GVHD. History of Present Illness Abdominal pain: She continues to experience significant ongoing intermittent abdominal pain. A colonoscopy is scheduled for next week after discussion with her GI team, who are considering both GVHD and other possible causes for her symptoms. No changes have been made to her medications following her recent gastrointestinal visit. She continues to use Dilaudid 4 mg twice daily for breakthrough pain Cancer associated pain: Lower extremity pain had previously been well controlled, but her buprenorphine patch fell off two days ago and she felt increased whole-body pain. She replaced the patch this morning and is usingadditional adhesive patches (her boyfriend's continuous glucose meter patches) to keep it in place. Nausea Concern for akathisia side effects She recently stopped taking olanzapine altogether due to continued symptoms of akathisia, describedas a 'jumping, restless feeling.' She had reduced the dose to 2.5 mg before discontinuing it. She continues to manage her nausea with Compazine 10 mg twice daily, which remains effective. Mood Anxiety Depression Since stopping olanzapine, she has increased anxiety and panic attacks, feeling 'overwhelmed' and 'very bored.' She feels very lonely and isolated, with limited social interaction during the day. Suleiman works during the day, and her son has football practice after school. She has a supportive friend with whom she communicates daily via phone and text. She does not want to feel like a burden -- shares about her history of trying to suppress her own needs as a child in order to not burden her parents since she has brother with complex health care needs. She does endorse some passive thoughts of not wanting to wake up, though she denies any active suicidal ideation or plans. She does not believe she would ever act on this She was supposed to have follow-up with her transplant psychiatrist last week but missed the visit due to feeling poorly, currently on a waiting list to try to get in again earlier than her next appointment in September. Also has a local provider in [place], and a therapist whom she sees weekly and will see in 2 days. Her current mental health medications include Abilify 10 mg and Cymbalta 120 mg, the latter at maximum dose for both neuropathy and mood. She previously used lorazepam for anxiety but discontinued itupon starting the Butrans patch. Previously also had used hydroxyzine but has not used this recently OBJECTIVE PHYSICAL EXAM Physical Exam General: Fatigued appearing young woman sitting in bed in no distress Psych: Mood is depressed, tearful ASSESSMENT / PLAN Radha Martinez is a 35 y.o. 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 Isolation and loneliness are significantly worsening the latter. She is open to referral to palliative care social work for discussion of nonpharmacologic management strategies for anxiety and mood as well as consideration of meaning centered psychotherapy and/or resilient Living. We will send her some helpful relaxation and stress management modules through the portal, as well as information on meaning centered psychotherapy and resilient Living. We will alsoadd back hydroxyzine PRN to help with anxiety management. In the meantime, I have urged her to reach out to her current psychology treatment team including the transplant psychiatrist team to get their recommendations. She also plans to discuss with her therapist in 2 days. We reviewed the need to call 911 or present to an ER should she develop any active SI. RECOMMENDATIONS Assessment & Plan Anxiety Depression Demoralization Increased anxiety and depression after stopping olanzapine. Managed with Compazine. Reports panic attacks and passive thoughts. Seeing therapist weekly, psychiatry appointment in September. - Restart hydroxyzine 25-50 mg q.6 hours PRN, as was recommended by inpatient psychiatry consult service last month - Patient will contact psychiatry team for management of increased anxiety and explore potential medication adjustments. - Refer to palliative care social work for additional support. - Reiki session scheduled 08/11 - Send information on stress and anxiety management techniques via the portal, as well as information on meaning centered psychotherapy and resilient living program - reviewed the need to call 911 or present to an ER should she develop any active SI Abdominal Pain - Proceed with scheduled colonoscopy on July 27, defer to the GI team for further workup - Continues on hydromorphone, currently being managed by Dr. Rousseau Chemotherapy-induced neuropathy Neuropathic pain - Continue buprenorphine (Butrans) patch 5 mcg per hour - Continue duloxetine 120 mg daily - Previous trials of gabapentin and Lyrica not been successful Opioid Summary Opioid Need: This patient has a condition that necessitates treatment with an opioid for longer than 7 days. Additionally, a non-opioid alternative was not appropriate or inadequate to manage patient???s pain. We have reviewed risks, benefits and alternatives related to opioid prescribing as well as relevant mitigation strategies. 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 Opioid Toxicity Review: We have reviewed the risks of opioid therapy and completed an assessment oftoxicities. Opioid Aberrant Use Concerns: None Opioid Risk Score: Last Opioid Risk Tool charting Flowsheet Row Comprehensive Visit from 04/21/2025 in Department of Palliative Care in [place], [place] ORT Total Score (max 26) 2 Naloxone prescribed: yes The palliative care nursing team has been directed to provide ongoing assessment, education, and therapy for symptom management according to the plan of care I have outlined. Follow up visit: provider 2 weeks, clinic visit I personally spent a total of 52 minutes. Consult conducted via real-time audio/video technology by Lisa Magdaleno M.D. in [facility] to the patient in Patient's Home Lisa Magdaleno M.D. documented in this encounter Plan of Treatment Upcoming Encounters Date Type Department Care Team (Late st Contact Info) Description 08/11/2025 8:00 AM CDT Office Visit Department of Palliative Care in [place], [place] [address] [place] [phone] Meghan Osorio M.D. [address] [place] [phone] 08/11/2025 9:00 AM CDT Nurse Only Section of Infectious Diseases in [place], [place] [address] [place] [phone] Jessica Rousseau M.B.B.S. [address] [place] [phone] 08/11/2025 1:00 PM CDT Clinical Support Department of Palliative Care in [place], [place] [address] [place] [phone] Uma Aly APRN, C.N.P., M.S.N. [address] [place] [phone] 08/13/2025 10:00 AM CDT Lab Department of Laboratory Medicine and Pathology, [facility] in [place], [place] [address] [place] [phone] Jessica Rousseau M.B.B.S. [address] [place] [phone] 08/13/2025 10:30 AM CDT [facility] [place], [place] [address] [place] [phone] Jessica Rousseau M.B.B.S. [address] [place] [phone] Nelli Parker, PharmKatalinaD., R.Ph. [address] [place] [phone] 08/13/2025 11:00 AM CDT [facility] [place], [place] [address] [place] [phone] Jessica Rousseau M.B.B.S. [address] [place] [phone] 08/13/2025 11:30 AM CDT [facility] [place], [place] [address] [place] [phone] Jessica Rousseau M.B.B.S. [address] [place] [phone] 08/13/2025 3:00 PM CDT Clinical Support Department of Palliative Care in [place], [place] [address] [place] [phone] Meghan Osorio M.D. [address] [place] [phone] Mary Garcia M.S.W., L.I.C.S.W. [address] [place] [phone] 08/25/2025 8:00 AM CDT Telemedicine [facility] Transplantation and Clinical Regeneration in [place], [place] [address] [place] [phone] Jessica Rousseau M.B.B.S. [address] [place] [phone] Scheduled Referrals Name Type Priority Associated Diagnoses Order Schedule Social Work - General consult (clinic) [facility]; General Outpatient Referral Routine Anxiety Expected: 07/21/2025, Expires: 10/20/2026 Palliative Care office visit (clinic) Outpatient Referral Routine Expected: 08/11/2025, Expires: 10/20/2026 documented as of this encounter Visit Diagnoses Diagnosis Anxiety- Primary Pain Neuropathic Abdominal Pain Depression Major Recurrent Moderate (HCC) Anxiety Generalized Disorder Transplant Stem Cell (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) documented in this encounter Additional Health Concerns Infection Onset Date Last Indicated Resolved Time Protective Environment 03/02/2023 03/02/2023 Assessment Noted Time PHQ-9 Depression Total Score: 12 025 9:42 AM CDT documented as of this encounter Care Teams Customs Inspector Relationship Specialty Start Date End Date Renzo Andres M.D. [address] [place] [phone] PCP - General Family Medicine 04/25/23 documented as of this encounter
--- OUTSIDE RECORDS SUMMARY | 2025-07-22 08:45 | XMS_ITS | Encounter Summary ---
Author Organization [facility] Address [address] [place] [address] Care Team Providers Care Entertainment Production Professional Name Role Phone Renzo Andres M.D. Primary Care Provider [phone] Encounter Details Date Type Department Care Team (Late st Contact Info) Description 07/22/2025 8:45 AM CDT [facility] in [place], [place] [address] [place] [phone] Hi Nolan Social History Tobacco Use Types Packs/Day Years [...] things needed for daily living? No 07/02/2025 [facility] Utilities Answer Date Recorded [...] Sex Assigned at Female 12/26/2018 8:37 PM KEYBOARD ACTION ASSEMBLER Legal Sex Female 2:43 PM KEYBOARD ACTION ASSEMBLER Gender Identity Female 12/26/2018 8:37 PM KEYBOARD ACTION ASSEMBLER Sexual Orientation Choose not to disclose 2020 3:46 PM CDT documented as of this encounter Progress Notes * Hi Nolan - 07/22/2025 8:59 AM CDT Radha provided transportation assistance in the form of a [employer] gas card for 07/22 + 07/30 to assistwith gas costs to and from appointments. I informed patient that transportation funds are limited and based on availability and eligibility criteria. Encouraged them to reach out to the patient navigation team with any questions. SJL [phone] documented in this encounter Plan of Treatment Upcoming Encounters Date Type Department Care Team (Late st Contact Info) Description 08/11/2025 8:00 AM CDT Office Visit Department of Palliative Care in [place], [place] [address] [place] [phone] Meghan Osorio M.D. [address] [place] [phone] 08/11/2025 9:00 AM CDT Nurse Only Section of Infectious Diseases in [place], [place] [address] [place] [phone] Jessica Rousseau M.B.B.S. [address] [place] [phone] 08/11/2025 1:00 PM CDT Clinical Support Department of Palliative Care in [place], [place] [address] [place] [phone] Uma Aly APRN, C.N.P., M.S.N. [address] [place] [phone] 08/13/2025 10:00 AM CDT Lab Department of Laboratory Medicine and Pathology, [facility], in [place], [place] [address] [place] [phone] Jessica Rousseau M.B.B.S. [address] [place] [phone] 08/13/2025 10:30 AM CDT Office Visit Perdo Nazario [facility] in [place], [place] [address] [place] [phone] Jessica Rousseau M.B.B.S. [address] [place] [phone] Nelli Parker, Pharm.D., R.Ph. [address] [place] [phone] 08/13/2025 11:00 AM CDT Nurse Only [facility] in [place], [place] [address] [place] [phone] Jessica Rousseau M.B.B.S. [address] [place] [phone] 08/13/2025 11:30 AM CDT Office Visit Pedro Myla laura [facility] Transplantation and Clinical Regeneration in [place], [place] [address] [place] [phone] Jessica Rousseau M.B.B.S. [address] [place] [phone] 08/13/2025 3:00 PM CDT Clinical Support Department of Palliative Care in [place], [place] [address] [place] [phone] Meghan Osorio M.D. [address] [place] [phone] Mary Garcia M.SLavern., L.I.C.S.W. [address] [place] [phone] 08/25/2025 8:00 AM CDT Telemedicine [facility] Transplantation and Clinical Regeneration in [place], [place] [address] [place] [phone] Jessica Rousseau M.B.B.S. [address] [place] [phone] documented as of this encounter Visit Diagnoses Not on filedocumented in this encounter Additional Health Concerns Infection Onset Date Last Indicated Resolved Time Protective Environment 03/02/2023 03/02/2023 Assessment Noted Time PHQ-9 Depression Total Score: 12 025 9:42 AM CDT documented as of this encounter Care Teams Entertainment Production Professional Relationship Specialty Start Date End Date Renzo Andres M.D. NPAmanda: [phone] [address] [place] [address] [place] [phone] PCP - General Family Medicine 04/25/23 documented as of this encounter
--- OUTSIDE RECORDS SUMMARY | 2025-07-22 09:30 | XMS_ITS | Encounter Summary ---
Author Organization [facility] Address [address] [place] [address] Care Team Providers Care Credit Risk Associate Name Role Phone Renzo Andres M.D. Primary Care Provider Reason for Visit * Transplant (Routine) - Closed Specialty Diagnoses / Procedures Referred By Estefania t Referred To Contact Transplant Becky Hernandez APRN C.NKatalinaPKatalina, D.N.P. [address] [place] [phone] Phone: tel: fax: [facility] Referral ID Status Reason Start Date Expiration Date Visits Re quested Visits Authorized [id number] Closed 07/16/2025 01/15/2027 1 1 Encounter Details Date Type Department Care Team (Latest Contact Info) Description 07/22/2025 9:30 AM CDT [facility] [place], [place] [address] [place] [phone] Becky Hernandez APRN, C.N.PKatalina, D.N.P. [address] [place] [phone] Arlen James APRN, C.N.P., D.N.P. 200 [place] [phone] Transplant Bone Marrow Allogeneic (HCC) (Primary Dx); Leukemia Myeloid Chronic BCR/ABL Positive Not Having Achieved Remission (HCC) Social History Tobacco Use Types [...] things needed for daily living? No 07/02/2025 [facility] Utilities Answer Date Recorded In [...] Assigned at Female 12/26/2018 8:37 PM VOCATIONAL TECHNICAL EDUCATION DIRECTOR Legal Sex Female 2:43 PM VOCATIONAL TECHNICAL EDUCATION DIRECTOR Gender Identity Female 12/26/2018 8:37 PM VOCATIONAL TECHNICAL EDUCATION DIRECTOR Sexual Orientation Choose not to disclose 2020 3:46 PM CDT documented as of this encounter Last Filed Vital Signs Vital Sign Reading Time Taken Comments Blood Pressure 120/87 07/22/2025 9:34 AM CDT Pulse 96 07/22/2025 9:34 AM CDT Temperature 36.9 C (98.4 F) 07/22/2025 9:34 AM CDT Respiratory Rate - - Oxygen Saturation - - Inhaled Oxygen Concentration - - Weight 105 kg (232 lb 9.4 oz) 07/22/2025 9:34 AM CDT Height - - Body Mass Index 34.85 07/16/2025 9:44 AM CDT documented in this encounter Progress Notes * Arlen James, KARON, C.N.P., D.N.P. - 07/22/2025 9:30 AM CDT SUBJECTIVE TRANSPLANT PHYSICIAN Dr. Jessica Rousseau, pager [phone]. CHIEF COMPLAINT Ms. 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 She presents to the clinic today for evaluation persistent abdominal pain, nausea and diarrhea. (Currently day + 224). HISTORY OF PRESENT ILLNESS Please refer to multiple prior notes in EMR for complete hematologic history: Ms. Martinez is a 35 y.o. 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 At the time of diagnosis, there was grade 3 reticulin fibrosis noted. The cytogenetics identified a [place] chromosome in 20 metaphases. The BCR-ABL1 P [...] t(9;22) metaphases. NGS is positive for ASXL1 p.[id number]*12 (20%) and p.Mqp544* (3%). 06/17/2024: feeling quite symptomatic since the [...] Access [place] CVC placed on 12/03/24 by [facility]. Social Work Seen and cleared [...] prophylaxis: Ursodiol 600 mg two times daily. [id number] [...] nausea. Discharged on Dilaudidand prednisone. INTERVAL HISTORY 07/22/25 Ms Radha Martinez was seen by Palliative on 07/21/25; recommended she hydroxyzine 25-50 mgq.6 hours PRN, as was recommended by inpatient psychiatry consult service last month. She could notfind this prescription; palliative care refilled this on 07/21 and she is yet to pick this up yet. She is using Hyoscyamine occasionally; unsure if this is helpful with symptoms of abdominal pain and cramping. Also having back pain, shakiness, fatigue. She has been drinking less fluids than usual; urination stable. Has a slight headache today; intermittent. Occasionally uses Tylenol. She has been having regular BMs approx twice daily since drinking Probiotic. Mood/anxiety remains a concern. She denies thoughts of self harm or harm to anyone else. She has not noticed any new skin changes or rash. She continues to take prednisone but remains on 20 mg; missed the decrease to 10 mg daily on 07/20. She currently is taking melatonin 5 mg at bedtime with a second dose when waking in the night. Fallsasleep ok per report. Has supper twice weekly with her mother. Has additional visits intermittently; feels support system is good. REVIEW OF SYSTEMS Per interval history Current Medications[1] Active Home Medications Medication Sig Taking acyclovir (Zovirax) 400 mg tablet Take 1 tablet (400 mg total) by mouth 2 (two) times a day. Yes ARIPiprazole (Abilify) 10 mg tablet Take 1 tablet (10 mg total) by mouth daily. Dose change 12/02/2024 Yes buprenorphine (Butrans) 5 mcg/hour Place 1 patch on the skin once a week Indication: Chronic Pain/Nonacute Pain. Yes cholecalciferol (Vitamin D3) 50 mcg (2,000 Unit) tablet Take 50 mcg by mouth daily. Yes DULoxetine (Cymbalta) [address] capsule Take 2 capsules (120 mg total) by mouth daily. Yes hydroCHLOROthiazide (HydroDiuril) 25 mg tablet Take 1 tablet (25 mg total) by mouth daily. Yes HYDROmorphone (Dilaudid) 1 mg/mL liquid Take 2 mL (2 mg total) by mouth every 6 (six) hours as needed for pain Indication: Chronic Pain/Nonacute Pain. Yes hyoscyamine (Levsin) 0.125 mg tablet Take 1 tablet (0.125 mg total) by mouth every 4 (four) hours as needed for bladder spasms. For abdominal pain/cramping/spasm Yes melatonin 5 mg tablet Take 5-10 mg by mouth at bedtime. Yes OLANZapine (ZyPREXA) 5 mg tablet Take 1 tablet (5 mg total) by mouth at bedtime. Patient taking differently: Take 5 mg by mouth at bedtime as needed (nausea). Yes pantoprazole (Protonix) 40 mg EC tablet Take 1 tablet (40 mg total) by mouth daily before morning meal. Yes penicillin V potassium (Veetids) 500 mg tablet Take 1 tablet (500 mg total) by mouth 2 (two) times a day. Yes posaconazole (NoxafiL) [address] tablet Take 3 tablets (300 mg total) by mouth daily. Yes predniSONE (Deltasone) 10 mg tablet Take 1 tablet (10 mg total) by mouth as directed. Take 3 tablets 07/06-07/12, 2 tablets 07/13-07/19, 1 tablet 07/20-07/26, 1/2 tab 07/27 -08/02 and then stop Yes prochlorperazine (Compazine) 10 mg tablet Take 1 tablet (10 mg total) by mouth every 6 (six) hours as needed for nausea. Yes sulfamethoxazole-trimethoprim (Bactrim) 400-80 mg per tablet Take 1 tablet by mouth daily. Yes alum-mag hydroxide-simeth (Maalox) 200-200-20 mg/5 mL suspension Take 30 mL by mouth every 4 (four)hours as needed for indigestion (dyspepsia). Patient not taking: Reported on 07/22/2025 HYDROmorphone (Dilaudid) 2 mg tablet Take 1 tablet (2 mg total) by mouth every 6 (six) hours as needed for pain for up to 14 days Indication: Chronic Pain/Nonacute Pain. Patient not taking: Reported on 07/22/2025 hydrOXYzine (Atarax) 25 mg tablet Take 1-2 tablets (25-50 mg total) by mouth every 6 (six) hours asneeded for anxiety. Patient not taking: Reported on 07/22/2025 naloxone (Narcan) 4 mg/actuation nasal spray Administer 1 spray (4 mg total) into nostril(s) once for 1 dose. Use 1 spray in 1 nostril. Repeat with second device in other nostril after 2-3 minutes ifno or minimal response. Patient not taking: Reported on 07/22/2025 ondansetron ODT (Zofran-ODT) 4 mg disintegrating tablet Dissolve 1-2 tablets (4- 8 mg total) in the mouth every 8 (eight) hours as needed for nausea or vomiting. Patient not taking: Reported on 07/22/2025 polyethylene glycol-electrolytes (Golytely) 236-22.74-6.74 -5.86 gram solution Take first portion of the prep at 4pm the evening before and start second portion 3 to 6 hours before and finish 2 hoursprior to report time. OBJECTIVE VITAL SIGNS Temperature: [36.5 ??C-36.9 ??C] 36.5 ??C Resp Rate: [16] 16 Blood Pressure: (120-139)/(87-94) 139/94 Pulse Rate: [96-101] 101 PHYSICAL EXAM General: Patient is alert, oriented, somewhat teary during the visit due to the recent loss of her paternal grandma. Eyes: Anicteric sclera, PERRLA Mouth: Oral mucosa pink, moist, and without ulceration or lesions. Skin: Skin is warm and dry. No rashes or lesions. Heart: S1, S2. Regular rate and rhythm. No murmurs, rubs or gallops. Lungs: Clear to auscultation bilaterally and throughout. Non-labored breathing, respiratory effort normal. Abdomen: Soft, nondistended; no rebound of guarding; reports tender to L lower abdomen. Bowel sounds present in all four quadrants. Extremities: Bilateral lower extremities without edema or cyanosis. No calf tenderness. Neuro: CN 2 through 12 grossly intact with appropriate speech and affect Mental: Alert and oriented to person, place, time, and situation KPS: 70% DIAGNOSTIC FINDINGS Recent Results (from the past 24 hours) Albumin Collection Time: 07/22/25 8:46 AM Result Value Albumin, S 4.2 Alkaline Phosphatase Collection Time: 07/22/25 8:46 AM Result Value Alkaline Phosphatase, S 88 ALT (Alanine Aminotransferase) Collection Time: 07/22/25 8:46 AM Result Value Alanine Aminotransferase (ALT), S 34 AST (Aspartate Aminotransferase) Collection Time: 07/22/25 8:46 AM Result Value Aspartate Aminotransferase (AST), P 20 Bilirubin, Total Collection Time: 07/22/25 8:46 AM Result Value Bilirubin, Total, P 0.3 BUN (Blood Urea Nitrogen) Collection Time: 07/22/25 8:46 AM Result Value BUN (Blood Urea Nitrogen), S 15 Calcium, Total Collection Time: 07/22/25 8:46 AM Result Value Calcium, Total, S 9.3 Creatinine with Estimated GFR Collection Time: 07/22/25 8:46 AM Result Value Creatinine 0.81 Estimated GFR (eGFR) >90 Magnesium Collection Time: 07/22/25 8:46 AM Result Value Magnesium, S 2.1 Potassium Collection Time: 07/22/25 8:46 AM Result Value Potassium, S 3.8 Sodium Collection Time: 07/22/25 8:46 AM Result Value Sodium, S 139 LD (Lactate Dehydrogenase) Collection Time: 07/22/25 8:46 AM Result Value Hospital Deanna LD 171 CBC no call back, reflex T/S HGB <8 Collection Time: 07/22/25 8:47 AM Result Value Hemoglobin 12.6 Hematocrit 38.6 Erythrocytes 4.55 MCV 84.8 RBC Distrib Width 15.0 Platelet Count 191 Leukocytes 5.2 Neutrophils 3.91 Lymphocytes 1.00 Monocytes 0.20 (L) Eosinophils 0.04 Basophils 0.03 Glucose, Fasting Collection Time: 07/22/25 8:47 AM Result Value Glucose, P 171 (H) Last Intake 2 ASSESSMENT / PLAN # Diffuse Abdominal Pain, [...] Porphyria, C3, C4, C1 esterase, 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 TREATMENT - Initiated Budesonide 05/20/2025; increased to 6 mg daily 06/24/2025; discontinued 06/22/[address] Rousseau. - Dilaudid to 2 mg q 6 hrs PRN - Will continue on Buprenorphine patch - Levsin PRN - [facility] consult, 07/16/2025, and recommended Protonix 40 mg po BID (taking only daily as of 07/22) for 8 weeks, then daily thereafter, MiraLAX daily. Hyoscyamine prn. - 07/30/25 colonoscopy with random biopsies and TI exam. EGD in 3 months (around 09/2025) Avoid all NSAIDs - Palliative Medicine last 07/21/25. # Nausea/Vomiting - Compazine, Zofran and olanzapine PRN. # Management of narcotic associated constipation with Stool Clarinda on CT - Per GI and Palliative [...] and memories of her dads passing. B/P 06/30/25 was 162/122 and recheck was 166/105. Previous B/P in the last month have been intermittently 130- 160's/100's. She had previously been on hydrochlorothiazide 25 mg daily and was restarted hydrochlorothiazide 25 mg daily. BP in the 120s/80s per report on 07/22/25; 120/87 at visit. She was instructed to go to ED if she experiences chest pain or shortness of breath. # Esophageal/Chest pain - resolved [...] stem cell transplant (HCC) on 12/10/24, currently Day + 224 # Immunodeficiency (HCC) secondary immunosuppressive medication - Bone marrow biopsy done on 02/18/25, MRD negative, Non sorted chimerism 100 % donor ( 3 loci) and BCR/ABL1 p210 mRNA negative. - Peripheral sort chimerism from 06/25 showed 90% donor DNA in CD 3 and 100% donor DNA in CD 33 - Continue to check RT PCR [id number] on peripheral blood every 6 weeks, most recently undetected on 06/23/25. Plan to re-check Aug 13, 2025. - Last BM Bx from 02/18/25 was normal, no BCR-ABL1 detected. - BM biopsy June 15, 2025- MRD negative. - Bone marrow biopsy 06/15/2025 MRD negative. 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 ACUTE GVHD (CIBMTR CRITERIA) [...] off hydromorphone with starting buprenorphine patch. - Palliative care f/u July 2025. # Vitamin D Deficiency - Continues on [...] Unfortunately she missed her psychiatry f/u on 07/15; rescheduled to 09/25/25. - Last Palliative visit on 07/22/25; Reiki session 08/11/25 - Start Hydroxyzine per Palliative (resent RX on 07/21); will picker box operator 07/22. - Seeing therapist weekly. 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 Has only peripheral vision in right eye. Wears glasses. - Followed by [facility] in [place], [place]. - Patient will notify team if any vision changes. # Blood Products # TACO - Requires infusion of platelets at a slower rate. # CMV- last checked 07/16/25 negative # EBV - last checked 07/16/25 negative (recheck next visit given prednisone use) # Disposition - Follow-up labs and provider visit on 9 in 1 week - Decrease Prednisone to 10 mg daily x 7 days starting 07/22 then 5 mg x 7 days then stop. - Continue B/P twice a day, keep record and bring to her next follow-up appt. - Next follow-up labs, pharmacy, BMT RN and Dr. Rousseau on 08/13 [1] No current facility-administered medications for this visit. Facility-Administered Medications Ordered in Other Visits Medication Dose Frequency Last Rate Last Admin NaCl 0.9 % bolus 1,000 mL 1,000 mL Once 1,000 mL/hr at 07/22/25 1056 1,000 mL at 07/22/25 1056 sodium chloride 0.9 % injection 10-30 mL 10-30 mL PRN documented in this encounter Plan of Treatment Upcoming Encounters Date Type Department Care Team (Late st Contact Info) Description 08/11/2025 8:00 AM CDT Office Visit Department of Palliative Care in [place], [place] [address] [place] [phone] Meghan Osorio M.D. [address] [place] [phone] 08/11/2025 9:00 AM CDT Nurse Only Section of Infectious Diseases in [place], [place] [address] [place] [phone] Jessica Rousseau M.B.B.S. [address] [place] [phone] 08/11/2025 1:00 PM CDT Clinical Support Department of Palliative Care in [place], [place] [address] [place] [phone] Uma Aly APRN, C.N.P., M.S.N. [address] [place] [phone] 08/13/2025 10:00 AM CDT Lab Department of Laboratory Medicine and Pathology, [facility], in [place], [place] [address] [place] [phone] Jessica Rousseau M.B.B.S. [address] [place] [phone] 08/13/2025 10:30 AM CDT Office Visit [facility] in [place], [place] [address] [place] [phone] Jessica Rousseau M.B.B.S. [address] [place] [phone] Nelli Parker, Pharm.D., R.Ph. [address] [place] [phone] 08/13/2025 11:00 AM CDT Nurse Only [facility] Transplantation and Clinical Regeneration in [place], [place] [address] [place] [phone] Jessica Rousseau M.B.B.S. [address] [place] [phone] 08/13/2025 11:30 AM CDT Office Visit [facility] Transplantation and Clinical Regeneration in [place], [place] [address] [place] [phone] Jessica Rousseau M.B.B.S. [address] [place] [phone] 08/13/2025 3:00 PM CDT Clinical Support Department of Palliative Care in [place], [place] [address] [place] [phone] Mehgan Osorio M.D. [address] [place] [phone] Mary Garcia M.S.W., L.I.C.S.W. [address] [place] [phone] 08/25/2025 8:00 AM CDT Telemedicine [facility] in [place], [place] [address] [place] [phone] Jessica Rousseau M.B.B.S. [address] [place] [phone] documented as of this encounter Visit Diagnoses Diagnosis Transplant Bone Marrow Allogeneic (HCC)- Primary Leukemia Myeloid Chronic BCR/ABL Positive Not Having Achieved Remission (HCC) documented in this encounter Additional Health Concerns Infection Onset Date Last Indicated Resolved Time Protective Environment 03/02/2023 03/02/2023 Assessment Noted Time PHQ-9 Depression Total Score: 12 025 9:42 AM CDT documented as of this encounter Care Teams Credit Risk Associate Relationship Specialty Start Date End Date Renzo Andres M.D. [address] [place] [phone] PCP - General Family Medicine 04/25/23 documented as of this encounter
--- OUTSIDE RECORDS SUMMARY | 2025-07-22 11:30 | XMS_ITS | Encounter Summary ---
Author Organization [facility] Address [address] [place] [id number] Care Team Providers Care Messaging Architect Name Role Phone Renzo Andres M.D. Primary Care Provider [phone] Encounter Details Date Type Department Care Team (Late st Contact Info) Description 07/22/2025 11:30 AM CDT Infusion Department of Infusion Therapy in [place], [place] [address] [place] [phone] Arlen James, KARON, C.N.P., D.N.P. [address] [place] [phone] Transplant Bone Marrow Allogeneic (HCC) (Primary Dx); [...] things needed for daily living? No 07/02/2025 [facility] Utilities Answer Date Recorded In the past 12 months has th e electric, gas, oil, or water [employer] threatened to shut off services in your [...] Sex Assigned at Female 12/26/2018 8:37 PM VIRTUALIZATION ARCHITECT Legal Sex Female 2:43 PM VIRTUALIZATION ARCHITECT Gender Identity Female 12/26/2018 8:37 PM VIRTUALIZATION ARCHITECT Sexual Orientation Choose not to disclose 2020 3:46 PM CDT documented as of this encounter Last Filed Vital Signs Vital Sign Reading Time Taken Comments Blood Pressure 139/94 07/22/2025 10:48 AM CDT Pulse 101 07/22/2025 10:48 AM CDT Temperature 36.5 C (97.7 F) 07/22/2025 10:48 AM CDT Respiratory Rate 16 07/22/2025 10:48 AM CDT Oxygen Saturation - - Inhaled Oxygen Concentration - - Weight - - Height - - Body Mass Index - - documented in this encounter Plan of Treatment Upcoming Encounters Date Type Department Care Team (Late st Contact Info) Description 08/11/2025 8:00 AM CDT Office Visit Department of Palliative Care in [place], [place] [address] [place] [phone] Meghan Osorio M.D. [address] [place] [phone] 08/11/2025 9:00 AM CDT Nurse Only Section of Infectious Diseases in [place], [place] [address] [place] [phone] Jessica Rousseau M.B.B.S. [address] [place] [phone] 08/11/2025 1:00 PM CDT Clinical Support Department of Palliative Care in [place], [place] [address] [place] [phone] Uma Aly APRN, C.N.P., M.S.N. [address] [place] [phone] 08/13/2025 10:00 AM CDT Lab Department of Laboratory Medicine and Pathology, [facility], in [place], [place] [address] [place] [phone] Jessica Rousseau M.B.B.S. [address] [place] [phone] 08/13/2025 10:30 AM CDT [facility] in [place], [place] [address] [place] [phone] Jessica Rousseau M.B.B.S. [address] [place] [phone] Nelli Parker Pharm.D., R.Ph. [address] [place] [phone] 08/13/2025 11:00 AM CDT Nurse Only [facility] Transplantation and Clinical Regeneration in [place], [place] [address] [place] [phone] Jessica Rousseau M.B.B.S. [address] [place] [phone] 08/13/2025 11:30 AM CDT Office Visit [facility] Transplantation and Clinical Regeneration in [place], [place] [address] [place] [phone] Jessica Rousseau M.B.B.S. [address] [place] [phone] 08/13/2025 3:00 PM CDT Clinical Support Department of Palliative Care in [place], [place] [address] [place] [phone] Meghan Osorio M.D. [address] [place] [phone] Mary Garcia M.S.W., L.I.C.S.W. [address] [place] [phone] 08/25/2025 8:00 AM CDT Telemedicine [facility] Transplantation and Clinical Regeneration in [address] [phone] Jessica Rousseau M.B.B.S. [address] [place] [phone] documented as of this encounter Visit Diagnoses Diagnosis Transplant Bone Marrow Allogeneic (HCC)- Primary Leukemia Myeloid Chronic BCR/ABL Positive Not Having Achieved Remission (HCC) documented in this encounter Administered Medications Inactive Administered Medications - up to 3 most recent administrations Medication Order MAR Action Action Date Dose Rate Site NaCl 0.9 % bolus 1,000 mL 1,000 mL, intravenous, at 1,000 mL/hr, Administer over 1 Hours, Once, On Sun07/22/25 at 1100, For 1 doseIndications:Transplant Bone Marrow Allogeneic (HCC),Leukemia Myeloid Chronic BCR/ABL Positive Not Having Achieved Remission (HCC) New Bag 07/22/2025 10:56 AM CDT 1,000 mL 1000 mL/hr sodium chloride 0.9 % injection 10-30 mL 10-30 mL, intravenous, As needed, line care, Starting on Sun07/22/25 at 1034, Prior to and following infusion and between multiple consecutive infusions. 10 mL to each lumen.Indications:Leukemia Myeloid Chronic BCR/ABL Positive Not Having Achieved Remission (HCC) Given 07/22/2025 12:06 PM CDT 10 mL documented in this encounter Additional Health Concerns Infection Onset Date Last Indicated Resolved Time Protective Environment 03/02/2023 03/02/2023 Assessment Noted Time PHQ-9 Depression Total Score: 12 025 9:42 AM CDT documented as of this encounter Care Teams Messaging Architect Relationship Specialty Start Date End Date Renzo Andres M.D. [address] [place] [phone] PCP - General Family Medicine 04/25/23 documented as of this encounter
--- OUTSIDE RECORDS SUMMARY | 2025-07-29 10:00 | XMS_ITS | Encounter Summary ---
Author Organization [facility] Address [address] [place] [address] Care Team Providers Care Industrial Maintenance Repairer Name Role Phone Renzo Andres M.D. Primary Care Provider Reason for Visit * Reason Comments Nurse Visit * Transplant (Routine) - Closed Specialty Diagnoses / Procedures Referred By Estefania acosta Referred To Contact Transplant Diagnoses Transplant Stem Cell (HCC) Bone Marrow Transplant Status (HCC) Arlen James APRN, C.N.P., D.N.P. [address] [place] [phone] Phone: tel: fax: [facility] Referral ID Status Reason Start Date Expiration Date Visits Re quested Visits Authorized [id number] Closed 07/22/2025 01/21/2027 1 1 Encounter Details Date Type Department Care Team (Latest Contact Info) Description 07/29/2025 10:00 AM CDT Office Visit [facility] Trans[facility] Clinical Regeneration in [place], [place] [address] [place] [phone] Arlen James APRN, C.N.P., D.N.P. [address] [place] [phone] Analia Carter Y, KARON, C.N.P. [address] [place] [address] Lida Olivas R.N. Leukemia Myeloid Chronic BCR/ABL [...] things needed for daily living? No 07/02/2025 [facility] Utilities Answer Date Recorded In the past 12 months has [facility] [employer], gas, oil, or water [employer] threatened to shut off services in your home? No 07/02/2025 Depression Answer Date Recor ded PHQ-9 Total Score (max 27) 12 07/08 Housing Stability Answer Date Recorded What is your living situation today? I have a [facility] place to live 07/02/2025 Education Answer Date Recorded What is the highest level of school you have completed or the highest degree you have received? Some college, no degree 04/24/2019 Comments No Sex and Gender Information Value Date Recorded Sex Assigned at Female 12/26/2018 8:37 PM CARPENTER'S HELPER Legal Sex Female 2:43 PM CARPENTER'S HELPER Gender Identity Female 12/26/2018 8:37 PM CARPENTER'S HELPER Sexual Orientation Choose not to disclose 2020 3:46 PM CDT documented as of this encounter Last Filed Vital Signs Vital Sign Reading Time Taken Comments Blood Pressure 156/97 07/29/2025 9:59 AM CDT Pulse 89 07/29/2025 9:59 AM CDT Temperature 36.8 C (98.2 F) 07/29/2025 9:59 AM CDT Respiratory Rate - - Oxygen Saturation - - Inhaled Oxygen Concentration - - Weight 106 kg (234 lb 9.1 oz) 07/29/2025 9:59 AM CDT Height 172.9 cm (5' 8.07) 07/29/2025 9:59 AM CD T Body Mass Index 35.59 07/29/2025 9:59 AM CDT documented in this encounter Progress Notes * Lida Olivas, R.N. - 07/29/2025 10:00 AM CDT S/P Allo Transplant for Chronic Myelogenous Leukemia. Day 0 = 12/10/2024 (231 days). Please see previous notes regarding patient's history. Patient seen today in conjunction with Analia Gamez APRN, CNP. Please see their note for a full systems review. KPS: 70 Plan of care discussed with provider: Patient's transition from Hospital Based Outpatient to Outpatient BMT was completed on 12/31/2024. New medication changes with this visit: Hold Prednisone at 5 mg until visit with Dr Rousseau on 08/13 Pending Results: EBV Interim Plans: Colonoscopy on 07/30. Follow with Palliative on 08/11 Lab Plan: Allo/CMV/EBV with return visit. BCR/ABL every 6 weeks, next with 08/13 visit Future BMT Appointments: Return in 1 week with allo labs/ANUPAM/RN visit All questions answered, patient verbalized understanding of plan, patient will call with any additional questions or concerns prior to return appointment. Lida Olivas R.N. * Analia Carter APRN, C.NKatalinaP. - 07/29/2025 10:00 AM CDT SUBJECTIVE TRANSPLANT PHYSICIAN Dr. Jessica Rousseau, pager [phone]. CHIEF COMPLAINT Ms. 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 She presents to the clinic today for evaluation persistent abdominal pain, nausea and diarrhea. (Currently day + 231). HISTORY OF PRESENT ILLNESS Please refer to multiple prior notes in EMR for complete hematologic history: Ms. Martinez is a 35 y.o. 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 At the time of diagnosis, there was grade 3 reticulin fibrosis noted. The cytogenetics identified a [place] chromosome in 20 metaphases. The BCR-ABL1 P [...] t(9;22) metaphases. NGS is positive for ASXL1 p.[id number]*12 (20%) and p.Fyz320* (3%). 06/17/2024: feeling quite symptomatic since the [...] Access Camargo CVC placed on 12/03/24 by [facility]. Social Work Seen and [...] prophylaxis: Ursodiol 600 mg two times daily. [facility] ID Number: [id number] [...] nausea. Discharged on Dilaudidand prednisone. INTERVAL HISTORY 07/29/25 Ms Radha Martinez returns to clinic this morning. She appears very down cast this morning and notes that she is so depressed, bored and fatigued. She notes that she is also struggling since she cannot eat real food today as she has a colonoscopy tomorrow. She is scared of what they might find. She continues to have LLQ abdominal pain. She notes that the pain is a sharp pain that can last 40-60 minutes. She notes that the pain is typically 3/10 but can get up to 5/10. She feels that her pain management through palliative care is adequate. Her overwhelming issue is depression and fatigue. She tells me that she is down to Prednisone 5 mg daily and has been decreasing weekly. She is not sure if her fatigue has been increasing with the decrease in prednisone. She tells me that he takes her dogs for a 15-20 minutes walk daily. She notes that she is not interested in anything and she is terribly bored. She finds no pleasure in anything.She feels defeated at home as she will make dinner for her boyfriend and son but they will take their dinner to the computer and continue meaghan so she is sitting alone for dinner. She does meet with her counselor weekly and notes that she has an appointment with her this afternoon. She is going to be joining a group mindfulness support group next week. This group is on [employer] and will meet twice weekly. She is also joining an in-person grief support group locally which will start in a couple of weeks. She tells me that she has been having night sweats over the past month which are occurring every night and almost soaks her night shirt. She does have occasional hot flashes during the day. She has not had a period since going through transplant. She denies fevers, dysphagia, mouth/throat pain, nausea (as this is much better and she has discontinued all of her anti-emetics), vomiting, diarrhea, changes to her skin. She does note some shortness of breath. She also describes orthopnea once in a while at night while sleeping. She also notes chest pain in the middle of the night occasionally. She thinks this might be some anxiety. She has notpicked up the Atarax for panic yet, but tells me she will do this today. Overall she feels that nothing has really changes since she was last here. REVIEW OF SYSTEMS Per interval history Current [...] (120 mg total) by mouth daily. Yes HYDROmorphone (Dilaudid) 2 mg tablet Take 1 tablet (2 mg total) by mouth every 6 (six) hours as needed for pain for up to 14 days Indication: Chronic Pain/Nonacute Pain. Yes melatonin 5 mg tablet Take 5-10 mg by mouth at bedtime. Yes penicillin V potassium (Veetids) 500 mg tablet Take 1 tablet (500 mg total) by mouth 2 (two) times a day. Yes posaconazole (NoxafiL) [address] tablet TAKE 3 TABLETS(300 MG) BY MOUTH DAILY Yes predniSONE (Deltasone) 10 mg tablet Take 1 tablet (10 mg total) by mouth as directed. Take 1 tablet07/23-07/29, 1/2 tab 07/30 -08/04 and then stop Patient taking differently: Take 10 mg by mouth as directed. Stay on 5 mg once daily until appointment on 08/13 d/t increased fatigue and feeling more irritable Yes sulfamethoxazole-trimethoprim (Bactrim) 400-80 mg per tablet Take 1 tablet by mouth daily. Yes alum-mag hydroxide-simeth (Maalox) 200-200-20 mg/5 mL suspension Take 30 mL by mouth every 4 (four)hours as needed for indigestion (dyspepsia). Patient not taking: Reported on 07/29/2025 hydroCHLOROthiazide (HydroDiuril) 25 mg tablet Take 1 tablet (25 mg total) by mouth daily. Patient not taking: Reported on 07/29/2025 hydrOXYzine (Atarax) 25 mg tablet Take 1-2 tablets (25-50 mg total) by mouth every 6 (six) hours asneeded for anxiety. Patient not taking: Reported on 07/29/2025 naloxone (Narcan) 4 mg/actuation nasal spray Administer 1 spray (4 mg total) into nostril(s) once for 1 dose. Use 1 spray in 1 nostril. Repeat with second device in other nostril after 2-3 minutes ifno or minimal response. Patient not taking: Reported on 07/29/2025 OLANZapine (ZyPREXA) 5 mg tablet Take 1 tablet (5 mg total) by mouth at bedtime. Patient not taking: Reported on 07/29/2025 ondansetron ODT (Zofran-ODT) 4 mg disintegrating tablet Dissolve 1-2 tablets (4- 8 mg total) in the mouth every 8 (eight) hours as needed for nausea or vomiting. Patient not taking: Reported on 07/29/2025 pantoprazole (Protonix) 40 mg EC tablet Take 1 tablet (40 mg total) by mouth daily before morning meal. Patient not taking: Reported on 07/29/2025 polyethylene glycol-electrolytes (Golytely) 236-22.74-6.74 -5.86 gram solution Take first portion of the prep at 4pm the evening before and start second portion 3 to 6 hours before and finish 2 hoursprior to report time. Patient not taking: Reported on 07/29/2025 prochlorperazine (Compazine) 10 mg tablet Take 1 tablet (10 mg total) by mouth every 6 (six) hours as needed for nausea. Patient not taking: Reported on 07/29/2025 OBJECTIVE VITAL SIGNS Temperature: [36.8 ??C] 36.8 ??C Blood Pressure: (156)/(97) 156/97 Pulse Rate: [89] 89 PHYSICAL EXAM General: Patient is alert, oriented, somewhat teary during the visit due to the recent loss of her paternal grandma. Eyes: Anicteric sclera, Mouth: Oral mucosa pink, moist, and without [...] edema or cyanosis. No calf tenderness. Neuro: appropriate speech and affect Mental: Alert and oriented to person, place, time, and situation KPS: 70% DIAGNOSTIC FINDINGS Recent Results (from the past 24 hours) Albumin Collection Time: 07/29/25 9:47 AM Result Value Albumin, S 4.3 Alkaline Phosphatase Collection Time: 07/29/25 9:47 AM Result Value Alkaline Phosphatase, S 98 ALT (Alanine Aminotransferase) Collection Time: 07/29/25 9:47 AM Result Value Alanine Aminotransferase (ALT), S 31 AST (Aspartate Aminotransferase) Collection Time: 07/29/25 9:47 AM Result Value Aspartate Aminotransferase (AST), P 21 Bilirubin, Total Collection Time: 07/29/25 9:47 AM Result Value Bilirubin, Total, P 0.2 BUN (Blood Urea Nitrogen) Collection Time: 07/29/25 9:47 AM Result Value BUN (Blood Urea Nitrogen), S 11 Calcium, Total Collection Time: 07/29/25 9:47 AM Result Value Calcium, Total, S 9.3 CBC no call back, reflex T/S HGB <8 Collection Time: 07/29/25 9:47 AM Result Value Hemoglobin 12.3 Hematocrit 37.7 Erythrocytes 4.47 MCV 84.3 RBC Distrib Width 14.6 Platelet Count 201 Leukocytes 4.5 Neutrophils 3.00 Lymphocytes 0.98 Monocytes 0.40 Eosinophils 0.04 Basophils 0.03 Creatinine with Estimated GFR Collection Time: 07/29/25 9:47 AM Result Value Creatinine 0.82 Estimated GFR (eGFR) >90 Glucose, Fasting Collection Time: 07/29/25 9:47 AM Result Value Glucose, P 76 Last Intake 10 Magnesium Collection Time: 07/29/25 9:47 AM Result Value Magnesium, S 2.2 Potassium Collection Time: 07/29/25 9:47 AM Result Value Potassium, S 4.3 Sodium Collection Time: 07/29/25 9:47 AM Result Value Sodium, S 140 LD (Lactate Dehydrogenase) Collection Time: 07/29/25 9:47 AM Result Value Hospital Deanna LD 176 ASSESSMENT / PLAN # Diffuse Abdominal Pain, [...] Nausea/Vomiting - Compazine, Zofran and olanzapine PRN. She has not taken any of these and notes nausea is well under control. # Management of narcotic associated constipation with Stool [place] on CT - Per GI and Palliative care, started MiraLAX daily and Senna 2 tabs BID, may increase as needed. - May also consider adding Linzess per GI (72 mcg-290 mcg). # Oral Thrush - resolved - Noted per EGD from 06/26/2025 as [...] experiences chest pain or shortness of breath. - 07/29/25 she notes home blood pressures have been good. Today is slightly elevated. Continue to monitor # Esophageal/Chest pain - resolved - Pain [...] transplant (HCC) on 12/10/24, currently Day + 231 # Immunodeficiency (HCC) secondary immunosuppressive medication - Bone marrow biopsy done on 02/18/25, MRD negative, Non sorted chimerism 100 % donor ( 3 loci) and BCR/ABL1 p210 mRNA negative. - Peripheral sort chimerism from 06/25 showed 90% donor DNA in CD 3 and 100% donor DNA in CD 33 - Continue to check RT PCR [id number] on peripheral blood every 6 weeks, most [...] daily as of 07/02/[address] Rousseau-, She has been tapering down prednisone as directed. Today (07/29/25) she is taking 5 mg daily. She has been asked to continuethis dose until she is seen in the clinic next, to prevent adrenal insufficiency as she notes that she is so very fatigued. ACUTE GVHD (CIBMTR CRITERIA) Current Severity 07/02/25 [...] on hold with buprenorphine patch on 05/28/2025. 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 - Seeing therapist weekly. 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 Has only peripheral vision in right eye. Wears glasses. - Followed by [facility] in [place], [place]. - Patient will notify team if any vision changes. # Blood Products # TACO - Requires infusion of platelets at a slower rate. # CMV- last checked 07/16/25 negative # EBV - last checked 07/16/25 negative (recheck next visit given prednisone use) # Disposition - Follow-up labs and provider visit on 9 in 1 week - Continue Prednisone to 5 mg daily until seen by Dr. Rousseau 08/13/25. - Continue B/P twice a day, keep record and bring to her next follow-up appt. - Next follow-up labs, pharmacy, BMT RN and Dr. Rousseau on 08/11 [1] No current facility-administered medications for this visit. documented in this encounter Plan of Treatment Upcoming Encounters Date Type Department Care Team (Late st Contact Info) Description 08/11/2025 8:00 AM CDT Office Visit Department of Palliative Care in [place], [place] [address] [place] [phone] Meghan Osorio M.D. [address] [place] [phone] 08/11/2025 9:00 AM CDT Nurse Only Section of Infectious Diseases in [address] [phone] Jessica Rousseau M.B.B.S. [address] [place] [phone] 08/11/2025 1:00 PM CDT Clinical Support Department of Palliative Care in [place], [place] [address] [place] [phone] Uma Aly APRN, C.N.P., M.S.N. [address] [place] [phone] 08/13/2025 10:00 AM CDT Lab Department of Laboratory Medicine and Pathology, [facility], in [place], [place] [address] [place] [phone] Jessica Rousseau M.B.B.S. [address] [place] [phone] 08/13/2025 10:30 AM CDT [facility] [place], [place] [address] [place] [phone] Jessica Rousseau M.B.B.S. [address] [place] [phone] Nelli Parker Pharm.D., R.Ph. [address] [place] [phone] 08/13/2025 11:00 AM CDT Nurse Only [facility] for Transplantation and Clinical Regeneration in [place], [place] [address] [place] [phone] Jessica Rousseau M.B.B.S. [address] [place] [phone] 08/13/2025 11:30 AM CDT Office [facility] in [place], [place] [address] [place] [phone] Jessica Rousseau M.B.B.S. [address] [place] [phone] 08/13/2025 3:00 PM CDT Clinical Support Department of Palliative Care in [place], [place] [address] [place] [phone] Meghan Osorio M.D. [address] [place] [phone] Mary Garcia M.S.W., LStephanie.C.S.W. [address] [place] [phone] 08/25/2025 8:00 AM CDT Telemedicine [facility] for Transplantation and Clinical Regeneration in [place], [place] [address] [place] [phone] Jessica Rousseau M.B.BKatalinaSKatalina [address] [place] [phone] documented as of this encounter Visit Diagnoses Diagnosis Leukemia Myeloid Chronic BCR/ABL Positive Remission (HCC)- Primary Transplant Stem Cell (HCC) Transplant Bone Marrow Allogeneic (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) documented in this encounter Additional Health Concerns Infection Onset Date Last Indicated Resolved Time Protective Environment 03/02/2023 03/02/2023 Assessment Noted Time PHQ-9 Depression Total Score: 12 025 9:42 AM CDT documented as of this encounter Care Teams Industrial Maintenance Repairer Relationship Specialty Start Date End Date Renzo Andres M.D. [address] [place] [address] [place] [phone] PCP - General Family Medicine 04/25/23 documented as of this encounter
--- OUTSIDE RECORDS SUMMARY | 2025-07-29 11:00 | XMS_ITS | Encounter Summary ---
Author Organization [facility] Address [address] [place] [address] Care Team Providers Care Straddle Bug Operator Name Role Phone Renzo Andres M.D. Primary Care Provider [phone] Encounter Details Date Type Department Care Team (Late st Contact Info) Description 07/29/2025 11:00 AM CDT [facility] in [place], [place] [address] [place] [phone] Carolyn Crowell Social History Tobacco Use Types [...] daily living? No 07/02/[address] [facility] Utilities [...] [facility] 07/02/2025 Education Answer Date Recorded What is the highest level of school you have completed or the highest degree you have received? Some college, no degree 04/24/2019 Comments No Sex and Gender Information Value Date Recorded Sex Assigned at Female 12/26/2018 8:37 PM ENERGY MANAGEMENT SPECIALIST Legal Sex Female 2:43 PM ENERGY MANAGEMENT SPECIALIST Gender Identity Female 12/26/2018 8:37 PM ENERGY MANAGEMENT SPECIALIST Sexual Orientation Choose not to disclose 2020 3:46 PM CDT documented as of this encounter Progress Notes * Carolyn Crowell - 07/29/2025 11:09 AM CDT Radha provided transportation assistance in the form of a [employer] gas card for 07/29/25-07/30/25 to assist with gas costs to and from appointments. I informed patient that transportation funds are limitedand based on availability and eligibility criteria. Encouraged them to reach out to the patient navigation team with any questions. [facility] [phone] documented in this encounter Plan of Treatment Upcoming Encounters Date Type Department Care Team (Late st Contact Info) Description 08/11/2025 8:00 AM CDT Office Visit Department of Palliative Care in [place], [place] [address] [place] [phone] Meghan Osorio M.D. [address] [place] [phone] 08/11/2025 9:00 AM CDT Nurse Only Section of Infectious Diseases in [place], [place] [address] [place] [phone] Jessica Rousseau M.B.B.S. [address] [place] [phone] 08/11/2025 1:00 PM CDT Clinical Support Department of Palliative Care in [place], [place] [address] [place] [phone] Uma Aly APRN, C.N.P., M.S.N. [address] [place] [phone] 08/13/2025 10:00 AM CDT Lab Department of Laboratory Medicine and Pathology, [facility], in [place], [place] [address] [place] [phone] Jessica Rousseau M.B.B.S. [address] [place] [phone] 08/13/2025 10:30 AM CDT Office Visit Pedro [facility] for Transplantation and Clinical Regeneration in [place], [place] [address] [place] [phone] Jessica Rousseau M.B.B.S. [address] [place] [phone] Nelli Parker Pharm.D., R.Ph. [address] [place] [phone] 08/13/2025 11:00 AM CDT Nurse Only [facility] Transplantation and Clinical Regeneration in [place], [place] [address] [place] [phone] Jessica Rousseau M.B.B.S. [address] [place] [phone] 08/13/2025 11:30 AM CDT Office Visit [facility] Transplantation and Clinical Regeneration in [place], [place] [address] [place] [phone] Jessica Rousseau M.B.B.S. [address] [place] [phone] 08/13/2025 3:00 PM CDT Clinical Support Department of Palliative Care in [place], [place] [address] [place] [phone] Meghan Osorio M.D. [address] [place] [phone] Mary Garcia M.S.W., L.I.C.S.W. [address] [place] [phone] 08/25/2025 8:00 AM CDT Telemedicine [facility] Transplantation and Clinical Regeneration in [place], [place] [address] [place] [phone] Jessica Rousseau M.B.B.S. [address] [place] [phone] documented as of this encounter Visit Diagnoses Not on filedocumented in this encounter Additional Health Concerns Infection Onset Date Last Indicated Resolved Time Protective Environment 03/02/2023 03/02/2023 Assessment Noted Time PHQ-9 Depression Total Score: 12 025 9:42 AM CDT documented as of this encounter Care Teams Straddle Bug Operator Relationship Specialty Start Date End Date Renzo Andres M.D. [address] [place], [place] [address] [phone] PCP - General Family Medicine 04/25/23 documented as of this encounter
--- OUTSIDE RECORDS SUMMARY | 2025-07-30 12:58 | XMS_ITS | Encounter Summary ---
Author Organization [facility] Address [address] [place] [phone] Care Team Providers Care Supervisor Seaming Name Role Phone Renzo Andres M.D. 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 [address] [place] [phone] Phone: tel: fax: [facility] Referral ID Status Reason Start Date Expiration Date Visits Re quested Visits Authorized [id number] Closed 07/16/2025 10/16/2026 1 1 Encounter Details Date Type Department Care Team (Latest Contact Info) Description 07/30/2025 12:58 PM CDT - 07/30/2025 11:59 PM CDT Hospital Encounter Division of Gastroenterology in [place], [place] [address] [place] [phone] Derrick Cruz Jr., M.D., M.S. 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 No 07/02/2025 [facility] Utilities Answer Date [...] Sex Assigned at Female 12/26/2018 8:37 PM FOOD ORDER EXPEDITER Legal Sex Female 2:43 PM FOOD ORDER EXPEDITER Gender Identity Female 12/26/2018 8:37 PM FOOD ORDER EXPEDITER Sexual Orientation Choose not to disclose 2020 3:46 PM CDT documented as of this encounter Last Filed Vital Signs Vital Sign Reading Time Taken Comments Blood Pressure 133/88 07/30/2025 3:00 PM CDT Pulse 81 07/30/2025 3:00 PM CDT Temperature 36.7 C (98.1 F) 07/30/2025 2:49 PM CDT Respiratory Rate 13 07/30/2025 3:00 PM CDT Oxygen Saturation 98% 07/30/2025 3:00 PM CDT Inhaled Oxygen Concentration - - [...] change 12/02/2024 30 tablet 5 04/15/2025 10/12/20 buprenorphine (Butrans) 5 mcg/hourIndications :Chronic Pain/Nonacute Pain Place 1 patch on the skin once a week Indication: Chronic Pain/Nonacute Pain. 4 patch 07/14/2025 cholecalciferol (Vitamin D3) 50 mcg (2,000 Unit) tablet Take 50 mcg by mouth daily. 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 120 capsule 5 04/29/2025 hydroCHLOROthiazide (HydroDiuril) 25 mg tablet Take 1 tablet (25 mg total) by mouth daily. 30 tablet 2 07/16/2025 hydrOXYzine (Atarax) 25 mg tabletIndications:A nxiety Take 1-2 tablets (25-50 mg total) by mouth every 6 (six) hours as needed for anxiety. 60 tablet 07/21/2025 melatonin 5 mg tablet Take 5-10 mg by mouth at bedtime. ondansetron ODT (Zofran-ODT) 4 mg disintegrating tablet Dissolve 1-2 tablets (4-8 mg total) in the mouth every 8 (eight) hours as needed for nausea or vomiting. 20 tablet 1 05/27/2025 pantoprazole (Protonix) 40 mg EC tablet Take 40 mg by mouth daily before morning meal. 08/05/25: increase to 40 mg BID 07/22/2025 penicillin V potassium (Veetids) 500 mg tabletIndications:L eukemia Myeloid Chronic BCR/ABL Positive Remission (HCC),Transplant Bone Marrow Allogeneic (HCC) Take 1 tablet (500 mg total) by mouth 2 (two) times a day. 60 tablet 11 04/29/2025 posaconazole (NoxafiL) [address] tabletIndications:L eukemia Myeloid Chronic BCR/ABL Positive Remission (HCC),Transplant Bone Marrow Allogeneic (HCC) TAKE 3 TABLETS(300 MG) BY MOUTH DAILY 90 tablet 3 07/29/2025 predniSONE (Deltasone) 10 mg tablet Take 1 tablet (10 mg total) by mouth as directed. Take 1 tablet 07/23-07/29, 1/2 tab 07/30 -08/04 and then stop 07/22/2025 prochlorperazine (Compazine) 10 mg tablet Take 1 tablet (10 mg total) by mouth every 6 (six) hours as needed for nausea. 30 tablet 2 07/01/2025 sulfamethoxazole-tr imethoprim (Bactrim) 400-80 mg per tabletIndications:T ransplant Bone Marrow Allogeneic (HCC),Leukemia Myeloid Chronic BCR/ABL Positive Not Having Achieved Remission (HCC) Take 1 tablet by mouth daily. 60 tablet 1 07/29/2025 HYDROmorphone (Dilaudid) 2 mg tabletIndications:C hronic Pain/Nonacute Pain Take 1 tablet (2 mg total) by mouth every 6 (six) hours as needed for pain for up to 14 days Indication: Chronic Pain/Nonacute Pain. 28 tablet 07/17/2025 07/31/20 25 OLANZapine (ZyPREXA) 5 mg tablet Take 1 tablet (5 mg total) by mouth at bedtime. 30 tablet 1 07/06/2025 08/05/20 25 documented as of this encounter Plan of Treatment Upcoming Encounters Date Type Department Care Team (Late st Contact Info) Description 08/11/2025 8:00 AM CDT Office Visit Department of Palliative Care in [place], [place] [address] [place] [phone] Meghan Osorio M.D. [address] [place] [phone] 08/11/2025 9:00 AM CDT Nurse Only Section of Infectious Diseases in [place], [place] [address] [place] [phone] Jessica Rousseau M.B.B.S. [address] [place] [phone] 08/11/2025 1:00 PM CDT Clinical Support Department of Palliative Care in [place], [place] [address] [place] [phone] Uma Aly APRN, CKatalinaNKatalinaP., M.S.N. [address] [place] [phone] 08/13/2025 10:00 AM CDT Lab Department of Laboratory Medicine and Pathology, [facility], in [place], [place] [address] [place] [phone] Jessica Rousseau M.B.B.S. [address] [place] [phone] 08/13/2025 10:30 AM CDT [facility] in [place], [place] [address] [place] [phone] Jessica Rousseau M.B.B.S. [address] [place] [phone] Nelli Parker PharmKatalinaD., R.Ph. [address] [place] [phone] 08/13/2025 11:00 AM CDT Nurse Only [facility] for Transplantation and Clinical Regeneration in [place], [place] [address] [place] [phone] Jessica Rousseau M.B.B.S. [address] [place] [phone] 08/13/2025 11:30 AM CDT Office Visit [facility] in [place], [place] [address] [place] [phone] Jessica Rousseau M.B.B.S. [address] [place] [phone] 08/13/2025 3:00 PM CDT Clinical Support Department of Palliative Care in [place], [place] [address] [place] [phone] Meghan Osorio M.D. [address] [place] [phone] Mary Garcia M.S.W., RicS.W. [address] [place] [phone] 08/25/2025 8:00 AM CDT Telemedicine [facility] in [place], [place] [address] [place] [phone] Jessica Rousseau M.B.B.S. 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 I verify that I have examined all relevant slides/materials for the specimen(s) and rendered or confirmed the diagnosis. 08/05/2025 1:30 PM CDT DTL Gross Description A: Received in formalin labeled with the patient's name, medical record number, and colon, random sites are nine pale emerson-pink irregularsoft tissues, ranging from 0.2-0.3 cm in greatest dimension. The specimens are submitted en toto in cassette A1. Grossed by MOM B: Received in formalin labeled with the patient's name, medical record number, and colon, transverse colon is a 0.3 x 0.2 x 0.1 cm paletan-pink irregular soft tissue. The specimen is submitted en toto in cassette B1. Grossed by HERBERT 08/05/2025 1:30 PM CDT DTL Disclaimer This test was developed using an analyte specific reagent. Its performance characteristics were determined by [facility] in a manner consistent with CLIA requirements. This test has not been cleared or approved by the U.S. Food and Drug Administration. 08/05/2025 1:30 PM CDT DTL Interpretation FINAL DIAGNOSIS A. Colon, Random Sites, endoscopic biopsy: Normal colonic mucosa. CMV immunostain is negative B. Colon, Transverse, polyp, endoscopic biopsy: Tubular adenoma, low grade dysplasia. (Multiple deeper levels examined) Seen in consultation with Dr. Jamari Chapman and Kingsley Stone (GI pathology section). Digital imaging was used in the diagnostic assessment of this case. 08/05/2025 1:30 PM CDT DTL Biopsy (Colon) 07/30/2025 2: 34 PM CDT Polyp (Colon) 07/30/2025 2:3 6 PM CDT Silvano Barnes LAB SURG PATH ORDERABL ES Final Result [facility] [address] [place] [address], [facility] [address] [place] [address] * Colonoscopy (07/30/2025 2:06 PM CDT) 07/30/2025 2:06 PM CDT Impressions [facility] - 07/30/2025 2:47 PM CDT Post-op Diagnoses: - Preparation of the colon was inadequate. - One 2 mm polyp in the transverse colon, removed with a cold biopsy forceps. Resected and retrieved. - Biopsies were taken with a cold forceps for histology in the entire colon. Narrative [facility] - 07/30/2025 2:47 PM CDT Gonda 9 GI GI Patient Name: Radha Martinez Date of : 1990 Age: 35 Procedure Date: 07/30/2025 Procedure: Colonoscopy Providers: JAYNA Bullock Referring Provider: Derrick Cruz Pre-op Diagnoses: Chronic diarrhea, biopsies of the colon requested to rule out GVHD Recommendation: There was no obvious inflammation seen in the colon or terminal ileum. Biopsies were obtained. - Await pathology results. - Return to referring provider. Findings: The perianal and digital rectal examinations were normal. A 2 mm polyp was found in the transverse colon. The polyp was sessile. The polyp was removed with a cold biopsy forceps. Resection and retrieval were complete. There is no endoscopic evidence of bleeding, diverticula, erythema, inflammation or ulcerations in the entire colon. Biopsies were taken with a cold forceps in the entire colon for histology. The terminal ileum appeared normal. Procedural Details: The patient was seen, evaluated, [...] and oxygen saturations were monitored continuously. The Colonoscope was introduced under direct vision through the anus and advanced to the terminal ileum. The colonoscopy was performed with moderate difficulty due to poor endoscopic visualization. The patient tolerated the procedure well. The quality of the bowel preparation was evaluated using the BBPS (Winthrop Bowel Preparation Scale) with scores of: Right Colon = 1 (portion of mucosa seen, but other areas not well seen due to staining, residual stool and/or opaque liquid), Transverse Colon = 1 (portion of mucosa seen, but other areas not well seen due to staining, residual stool and/or opaque liquid) and Left Colon = 1 (portion of mucosa seen, but other areas not well seen due to staining, residual stool and/or opaque liquid). The total BBPS score equals 3. The quality of the bowel preparation was inadequate. This was her second attempt at bowel prep, therefore we proceeded with the colonoscopy to the best of our ability. Estimated Blood Loss: Estimated blood loss: none. Complications: No immediate complications. Sedation: Anesthesia was administered by an anesthesia professional. The following parameters were monitored: oxygen saturation, heart rate, blood pressure, respiratory rate, EKG, adequacy of pulmonary ventilation, and response to care. Attending Participation: I personally performed the entire procedure. JAYNA Ewing 07/30/2025 2:46:56 PM This report has been signed electronically. Number of Addenda: 0 us Derrick A CruzKatharine Candelaria Jr., M.D., M.S. 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 [address] [place] [phone] PCP - General Family Medicine 04/25/23 documented as of this encounter
--- OUTSIDE RECORDS SUMMARY | 2025-07-30 13:00 | XMS_ITS | Encounter Summary ---
Author Organization [facility] Address [address] [place] [address] Care Team Providers Care Well Puller Name Role Phone Renzo Andres M.D. Primary Care Provider [phone] Encounter Details Date Type Department Care Team (Late st Contact Info) Description 07/30/2025 1:00 PM CDT [facility] in [place], [place] [address] [place] [phone] Carolyn Crowell Social History Tobacco Use Types Packs/Day Years Used Date Smoking Tobacco: Never Smokeless Tobacco: Never Alcohol Use Standard Drinks/Week Comments Never 0 [...] needed for daily living? No 07/02/2025 [facility] Utilities Answer Date Recorded In the past 12 months has th e electric, gas, oil, or water company threatened to shut off services in your home? No 07/02/2025 Depression Answer Date Recor ded PHQ-9 Total Score (max 27) 12 07/08 Housing Stability Answer Date Recorded What is your living situation today? I have a [facility] place to live 07/02/2025 Education Answer Date Recorded What is the highest level of school you have completed or the highest degree you have received? Some college, no degree 04/24/2019 Comments No Sex and Gender Information Value Date Recorded Sex Assigned at Female 12/26/2018 8:37 PM DANCE ARTIST Legal Sex Female 2:43 PM DANCE ARTIST Gender Identity Female 12/26/2018 8:37 PM DANCE ARTIST Sexual Orientation Choose not to disclose 2020 3:46 PM CDT documented as of this encounter Plan of Treatment Upcoming Encounters Date Type Department Care Team (Late st Contact Info) Description 08/11/2025 8:00 AM CDT Office Visit Department of Palliative Care in [place], [place] [address] [place] [phone] Meghan Osorio M.D. 200 [place] [phone] 08/11/2025 9:00 AM CDT Nurse Only Section of Infectious Diseases in [place], [place] [address] [place] [phone] Jessica Rousseau M.B.B.S. [address] [place] [phone] 08/11/2025 1:00 PM CDT Clinical Support Department of Palliative Care in [place], [place] [address] [place] [phone] Uma Aly APRN, C.N.P., M.S.N. [address] [place] [phone] 08/13/2025 10:00 AM CDT Lab Department of Laboratory Medicine and Pathology, [facility] in [place], [place] [address] [place] [phone] Jessica Rousseau M.B.B.S. [address] [place] [phone] 08/13/2025 10:30 AM CDT Office Visit [facility] in [place], [place] [address] [place] [phone] Jessica Rousseau M.B.B.S. [address] [place] [phone] Nelli Parker, Pharm.D., R.Ph. [address] [place] [phone] 08/13/2025 11:00 AM CDT Nurse Only [facility] for Transplantation and Clinical Regeneration in [place], [place] [address] [place] [phone] Jessica Rousseau M.B.B.S. [address] [place] [phone] 08/13/2025 11:30 AM CDT Office Visit [facility] Transplantation and Clinical Regeneration in [place], [place] [address] [place] [phone] Jessica Rousseau M.B.B.S. [address] [place] [phone] 08/13/2025 3:00 PM CDT Clinical Support Department of Palliative Care in [place], [place] [address] [place] [phone] Meghan Osorio M.D. [address] [place] [phone] Mary Garcia M.SLavern., L.I.C.S.W. [address] [place] [phone] 08/25/2025 8:00 AM CDT Telemedicine [facility] Transplantation and Clinical Regeneration in [place], [place] [address] [place] [phone] Jessica Rousseau M.B.B.S. [address] [place] [phone] documented as of this encounter Visit Diagnoses Not on filedocumented in this encounter Additional Health Concerns Infection Onset Date Last Indicated Resolved Time Protective Environment 03/02/2023 03/02/2023 Assessment Noted Time PHQ-9 Depression Total Score: 12 07/08/ 025 9:42 AM CDT documented as of this encounter Care Teams Well Puller Relationship Specialty Start Date End Date Renzo Andres M.D. [address] [place] [phone] PCP - General Family Medicine 04/25/23 documented as of this encounter
--- OUTSIDE RECORDS SUMMARY | 2025-07-30 14:10 | XMS_ITS | Encounter Summary ---
Author Organization [facility] Address [address] [place] [address] Care Team Providers Care Information Security Engineer Name Role Phone Renzo Andres M.D. Primary Care Provider Encounter Details Date Type Department Care Team (Latest Contact Info) Description 07/30/2025 2:10 PM CDT Ancillary Procedure Department of Gastroenterology [...] things needed for daily living? No 07/02/2025 [facility] Utilities Answer Date Recorded In the past 12 months has th [employer] electric, gas, oil, or water company threatened to shut off services in your home? No 07/02/2025 Depression Answer Date Recor ded PHQ-9 Total Score (max 27) 12 07/08 Housing Stability Answer Date Recorded What is your living situation today? I have a [facility] place to live 07/02/2025 Education Answer Date Recorded What is the highest level of school you have completed or the highest degree you have received? Some college, no degree 04/24/2019 Comments No Sex and Gender Information Value Date Recorded Sex Assigned at Female 12/26/2018 8:37 PM RN SANE Legal Sex Female 2:43 PM RN SANE Gender Identity Female 12/26/2018 8:37 PM RN SANE Sexual Orientation Choose not to disclose 2020 3:46 PM CDT documented as of this encounter Plan of Treatment Upcoming Encounters Date Type Department Care Team (Late st Contact Info) Description 08/11/2025 8:00 AM CDT Office Visit Department of Palliative Care in [place], [place] [address] [place] [phone] Meghan Osorio M.D. [address] [place] [phone] 08/11/2025 9:00 AM CDT Nurse Only Section of Infectious Diseases in [place], [place] [address] [place] [phone] Jessica Rousseau M.B.B.S. [address] [place] [phone] 08/11/2025 1:00 PM CDT Clinical Support Department of Palliative Care in [place], [place] [address] [place] [phone] Uma Aly APRN, C.NLuigi., M.S.N. [address] [place] [phone] 08/13/2025 10:00 AM CDT Lab Department of Laboratory Medicine and Pathology, [facility] in [place], [place] [address] [place] [phone] Jessica Rousseau M.B.B.S. [address] [place] [phone] 08/13/2025 10:30 AM CDT Office Visit Pedro sanchez [facility] for Transplantation and Clinical Regeneration in [place], [place] [address] [place] [phone] Jessica Rousseau M.B.B.S. [address] [place] [phone] Nelli Parker, Pharm.D., R.Ph. [address] [place] [phone] 08/13/2025 11:00 AM CDT Nurse Only [facility] in [place], [place] [address] [place] [phone] Jessica Rousseau M.B.B.S. [address] [place] [phone] 08/13/2025 11:30 AM CDT Office Visit [facility] in [place], [place] [address] [place] [phone] Jessica Rousseau M.B.B.S. [address] [place] [phone] 08/13/2025 3:00 PM CDT Clinical Support Department of Palliative Care in [place], [place] [address] [place] [phone] Meghan Osorio M.D. [address] [place] [phone] Mary Garcia M.S.W., L.I.C.S.W. [address] [place] [phone] 08/25/2025 8:00 AM CDT Telemedicine Pedro Aravind [facility] for Transplantation and Clinical Regeneration in [place], [place] [address] [place] [phone] Jessica Rousseau M.B.B.S. [address] [place] [phone] documented as of this encounter Procedures Procedure Name Priority Date/Time Associated Diagnosis Comments GASTROENTEROLOGY IMAGE EXAM Routine 07/30/2025 2:10 PM CDT documented in this encounter Results * Colonoscopy-Gastroenterology Image Exam (07/30/2025 2:10 PM CDT) 07/30/2025 2:06 PM CDT Narrative [facility] - 07/30/2025 2:49 PM CDT This order has been created [...] documented as of this encounter Care Teams Information Security Engineer Relationship Specialty Start Date End Date Renzo Andres M.D. [address] [place] [phone] PCP - General Family Medicine 04/25/23 documented as of this encounter
--- OUTSIDE RECORDS SUMMARY | 2025-07-30 14:13 | XMS_ITS | Encounter Summary ---
Author Organization [facility] Address [address] [place] [id number] Care Team Providers Care Store Associate Name Role Phone Renzo Andres M.D. Primary Care Provider Encounter Details Date Type Department Care Team (Latest Contact Info) Description 07/30/2025 2:13 PM CDT Anesthesia Event Division of Gastroenterology in [place], [place] [address] [place] [phone] Renita Patel APRN, SECURITIES SUPERVISOR [address] [place] [phone] Anesthesia Record Procedure Summary Procedure Name Responsible Anesthesiologist Anesthesia Start Time Anesthesia Stop Time COLONOSCOPY RESTRICTED Renita Patel APRN, SECURITIES SUPERVISOR 07/30/25 1413 07/30/25 1448 Events Date Time Event Comment 07/30/2025 1413 An Start Machine/Equipme nt Checked Infection Precautions Followed Procedure/Site Verified NPO Status Verified Supine Standard ASA Monitors Applied 1421 Turnover to Proceduralist 1426 Proc Start 1439 Proc Fin 1439 Turnover to ANE Staff 1444 an stop data 1448 An End I completed my handoff to [...] Meds Name Total lidocaine 2% (mg) injection 100 mg ondansetron PF 4 mg/2 mL injection 4 mg propofol 10 mg/mL injection 80 mg propofol 10 mg/mL infusion 305.9 mg Lactated Ringers Free Drip 250 mL * Agents No agents on file. * Blood No blood administrations on file. Lines, Drains, and Airways Type Details Placement Removal Wound 06/15/25; 951; N; Incision; Back; Left, Lower, Medial 06/15/25 09 by Kevin Villa RKatalinaNKatalina Peripheral IV Placement Date: 07/20 12/13; Placement Time: 1335; Catheter Size: 20 G; Orientation: Posterior, Right; Location: Hand; Site Prep: Chlorhexidine (Preferred); Technique: Anatomical landmarks; Inserted by: Jeanie Stock; Insertion Attempts: 1; Removal Date: 07/30/25; Removal Time: 151; Removal Reason: Patient discharged 07/30/25 1335 by Fabio Stock 07/30/25 1512 by Carolyn Lee RKatalinaNKatalina documented in this encounter Social History [...] the money to buy more. Never true 08/14/20 25 Within the past 12 months, t [...] things needed for daily living? 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 Sexual Orientation Choose not to disclose 2020 3:46 PM CDT documented as of this encounter OR Notes * Anesthesia Postprocedure Evaluation - Renita Patel APRN, CRNA - 07/30/2025 2:53 PM CDT Patient: Radha Martinez Procedure Summary Date: 07/30/25 Room / Location: Division of Gastroenterology in [place], [place] Anesthesia Start: 1413 Anesthesia Stop: 1448 Procedure: 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 Please [...] events documented. 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 Risks/Benefits/Alternatives of Blood transfusion discussed with patient / legal guardian, includingan opportunity to ask questions and/or decline some or all transfusion therapies. The patient / legal guardian consented to the use of all blood products, as deemed medically necessary Approval to Proceed: approved for anesthesia documented in this encounter Plan of Treatment Upcoming Encounters Date Type Department Care Team (Late st Contact Info) Description 08/11/2025 8:00 AM CDT Office Visit Department of Palliative Care in [place], [place] [address] [place] [phone] Meghan Osorio M.D. [address] [place] [phone] 08/11/2025 9:00 AM CDT Nurse Only Section of Infectious Diseases in [place], [place] [address] [place] [phone] Jessica Rousseau M.B.B.S. [address] [place] [phone] 08/11/2025 1:00 PM CDT Clinical Support Department of Palliative Care in [place], [place] [address] [place] [phone] Uma Aly APRN, C.N.P., M.S.N. [address] [place] [phone] 08/13/2025 10:00 AM CDT Lab Department of Laboratory Medicine and Pathology, [facility], in [place], [place] [address] [place] [phone] Jessica Rousseau M.B.B.S. [address] [place] [phone] 08/13/2025 10:30 AM CDT [facility] [place] [place] [address] [place] [phone] Jessica Rousseau M.B.B.S. [address] [place] [phone] Nelli Parker Pharm.D., R.Ph. [address] [place] [phone] 08/13/2025 11:00 AM CDT Nurse Only [facility] in [place], [place] [address] [place] [phone] Jessica Rousseau M.B.B.S. [address] [place] [phone] 08/13/2025 11:30 AM CDT Office Visit [facility] in [place], [place] [address] [place] [phone] Jessica Rousseau M.B.B.S. [address] [place] [phone] 08/13/2025 3:00 PM CDT Clinical Support Department of Palliative Care in [place], [place] [address] [place] [phone] Meghan Osorio M.D. [address] [place] [phone] Mary Garcia M.S.W., L.I.C.S.W. [address] [place] [phone] 08/25/2025 8:00 AM CDT Telemedicine [facility] in [place], [place] [address] [place] [phone] Jessica Rousseau M.B.B.S. [address] [place] [phone] documented as of this encounter Visit Diagnoses Not on filedocumented in this encounter Administered Medications Inactive Administered Medications - up to 3 most recent administrations Medication Order MAR Action Action Date Dose Rate Site Lactated Ringer's intravenous, Continuous Infusion: Per Instructions PRN, Starting on Tigist 07/30/25 at 1413, Anesthesia Intra-op New Bag 07/30/2025 2:13 PM CDT lidocaine (PF) (cardiac) injection intravenous, As needed, Starting on Tigist 07/30/25 at 1417, Anesthesia Intra-op Given 07/30/2025 2:20 PM CDT 60 mg Given 07/30/2025 2:17 PM CDT 40 mg ondansetron (PF) injection (Zofran) intravenous, As needed, Starting on Tigist 07/30/25 at 1414, Anesthesia Intra-op Given 07/30/2025 2:14 PM CDT 4 mg propofol 10 mg/mL infusion (Diprivan) intravenous, Continuous Infusion: Per Instructions PRN, Starting on Tigist 07/30/25 at 1417, Anesthesia Intra-op Rate/Dose Change 07/30/2025 2:34 PM CDT 100 mcg/kg/min 63.84 mL/hr Rate/Dose Change 07/30/2025 2:33 PM CDT 150 mcg/kg/min 95. 76 mL/hr Rate/Dose Change 07/30/2025 2:30 PM CDT 125 mcg/kg/min 79. 8 mL/hr propofoL injection (Diprivan) intravenous, As needed, Starting on Tigist 07/30/25 at 1420, Anesthesia Intra-op Given 07/30/2025 2:24 PM CDT 20 mg Given 07/30/2025 2:23 PM CDT 20 mg Given 07/30/2025 2:20 PM CDT 40 mg documented in this encounter Additional Health Concerns Infection Onset Date Last Indicated Resolved Time Protective Environment 03/02/2023 03/02/2023 Assessment Noted Time PHQ-9 Depression Total Score: 12 025 9:42 AM CDT documented as of this encounter Care Teams Store Associate Relationship Specialty Start Date End Date Renzo Andres M.D. [address] [place] [address] [place] [phone] PCP - General Family Medicine 04/25/23 documented as of this encounter
--- OUTSIDE RECORDS SUMMARY | 2025-08-05 14:00 | XMS_ITS | Encounter Summary ---
Author Organization [facility] Address [address] [place] [phone] Care Team Providers Care Staff Development Educator Name Role Phone Renzo Andres M.D. Primary Care Provider [phone] Reason for Referral * Outpatient (Routine) - Authorized Specialty Diagnoses / Procedures Referred By Estefania acosta Referred To Contact Sleep Medicine Diagnoses Leukemia Myeloid Chronic BCR/ABL Positive Not Having Achieved Remission (HCC) 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) Jessica Rousseau M.B.B.S. 200 [place] [address] Phone: tel: fax: [facility] Referral ID Status Reason Start Date Expiration Date Visits Requested Visits Authorized [id number] Authorized Specialty Services Required 08/05/2025 02/04/2027 1 1 Reason for Visit * Transplant (Routine) - Closed Specialty Diagnoses / Procedures Referred By Estefania acosta Referred To Contact Transplant Diagnoses Transplant Stem Cell (HCC) Bone Marrow Transplant Status (HCC) Arlen James APRN, C.N.P., D.N.P. [address] [place] [phone] Phone: tel: fax: [facility] Referral ID Status Reason Start Date Expiration Date Visits Re quested Visits Authorized [id number] Closed 07/22/2025 01/21/2027 1 1 Encounter Details Date Type Department Care Team (Latest Contact Info) Description 08/05/2025 2:00 PM CDT Office Visit Pedro sanchez [facility] in [place], [place] [address] [place] [phone] Arlen James APRN, C.N.P., D.N.P. [address] [place] [phone] Elise Pizarro, RFritz Leukemia Myeloid Chronic BCR/ABL Positive Not Having [...] for daily living? No 07/02/2025 [facility] Utilities Answer Date Recorded In the past 12 months has th e [employer], gas, oil, or water company threatened to shut off services in your home? No 07/02/2025 Depression Answer Date Recor ded PHQ-9 Total Score (max 27) 12 07/08 Housing Stability Answer Date Recorded What is your living situation today? I have a [facility] place to live 07/02/2025 Education Answer Date Recorded What is the highest level of school you have completed or the highest degree you have received? Some college, no degree 04/24/2019 Comments No Sex and Gender Information Value Date Recorded Sex Assigned at Female 12/26/2018 8:37 PM DEAF/HARD OF HEARING SPECIALIST Legal Sex Female 2:43 PM DEAF/HARD OF HEARING SPECIALIST Gender Identity Female 12/26/2018 8:37 PM DEAF/HARD OF HEARING SPECIALIST Sexual Orientation Choose not to disclose 2020 3:46 PM CDT documented as of this encounter Last Filed Vital Signs Vital Sign Reading Time Taken Comments Blood Pressure 128/88 08/05/2025 1:50 PM CDT Pulse 111 08/05/2025 1:50 PM CDT Temperature 36.8 C (98.2 F) 08/05/2025 1:50 PM CDT Respiratory Rate - - Oxygen Saturation - - Inhaled Oxygen Concentration - - Weight 105 kg (230 lb 11.4 oz) 08/05/2025 1:48 P M CDT Height - - Body Mass Index 35.01 07/29/2025 9:59 AM CDT documented in this encounter Progress Notes * Arlen James, KARON, C.N.P., D.N.P. - 08/05/2025 2:00 PM CDT SUBJECTIVE TRANSPLANT PHYSICIAN Dr. Jessica Rousseau, pager [phone]. CHIEF COMPLAINT Ms. 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 She presents to the clinic today for evaluation persistent abdominal pain, nausea and diarrhea. (Currently day + 238). HISTORY OF PRESENT ILLNESS Please refer to multiple prior notes in EMR for complete hematologic history: Ms. Martinez is a 35 y.o. 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 At the time of diagnosis, there was grade 3 reticulin fibrosis noted. The cytogenetics identified a [place] chromosome in 20 metaphases. The BCR-ABL1 P [...] t(9;22) metaphases. NGS is positive for ASXL1 p.[id number]*12 (20%) and p.Bbd587* (3%). 06/17/2024: feeling quite symptomatic since the [...] Camargo CVC placed on 12/03/24 by [facility]. Social Work Seen and cleared [...] prophylaxis: Ursodiol 600 mg two times daily. [facility] ID Number: [id number] [...] pain and nausea. Discharged on Dilaudidand prednisone. Colonoscopy on 07/30/2025 showed preparation of the colon was inadequate. One 2 mm polyp in the transverse colon removed with a cold biopsy forceps. Resected and retrieved. Biopsies pending as of 08/05/25. INTERVAL HISTORY 08/05/25 Ms Radha Martinez returns to clinic. She reports having some day and nighttime sweats for the last 3-5 days more consistently and states it has been intermittent for the last month approximately. She continues to have left lower quadrant abdominal pain and rates this at a 3/10 currently.She reports the pain intensified about 2 days ago from her baseline. She reports having body pain th at feels like constant sensitivity and burning to her entire body including her face. She reports her back has been tender to touch but no other areas. She has tried ice without symptom improvement. She has been taking her dog for walks approximately 15-20 minutes twice daily. She does some activities at home but feels winded with activity such as laundry and other ADLs. She continues to meet with a counselor weekly and finds that this is helpful. She has noted that taking a shower, doing word finds and walking her dog helps with her mood. She has not been using the hydroxyzine more than onlyoccasionally and never more than once per day. She states she has some difficulty with sleep still and states she has a history of being told she snores. She is using eyedrops every few days for eye dryness. She stopped taking prednisone on 08/03 (previously 5 mg daily) as she felt symptoms were worsening. Since discontinuation, she has felt that she has had less bloating but worsening abdominal pain and the back tenderness. She wonders whether she should be admitted to the hospital. She said she often worries about [id number]. REVIEW OF SYSTEMS Per interval history Current [...] (120 mg total) by mouth daily. Yes hydrOXYzine (Atarax) 25 mg tablet Take 1-2 tablets (25-50 mg total) by mouth every 6 (six) hours asneeded for anxiety. Yes melatonin 5 mg tablet Take 5-10 mg by mouth at bedtime. Yes ondansetron ODT (Zofran-ODT) 4 mg disintegrating tablet Dissolve 1-2 tablets (4- 8 mg total) in the mouth every 8 (eight) hours as needed for nausea or vomiting. Yes pantoprazole (Protonix) 40 mg EC tablet Take 40 mg by mouth daily before morning meal. 08/05/25: increase to 40 mg BID Yes penicillin V potassium (Veetids) 500 mg tablet Take 1 tablet (500 mg total) by mouth 2 (two) times a day. Yes posaconazole (NoxafiL) [address] tablet TAKE 3 TABLETS(300 MG) BY MOUTH DAILY Yes prochlorperazine (Compazine) 10 mg tablet Take 1 tablet (10 mg total) by mouth every 6 (six) hours as needed for nausea. Yes sulfamethoxazole-trimethoprim (Bactrim) 400-80 mg per tablet Take 1 tablet by mouth daily. Yes alum-mag hydroxide-simeth (Maalox) 200-200-20 mg/5 mL suspension Take 30 mL by mouth every 4 (four)hours as needed for indigestion (dyspepsia). Patient not taking: Reported on 08/05/2025 hydroCHLOROthiazide (HydroDiuril) 25 mg tablet Take 1 tablet (25 mg total) by mouth daily. Patient not taking: Reported on 08/05/2025 naloxone (Narcan) 4 mg/actuation nasal spray Administer 1 spray (4 mg total) into nostril(s) once for 1 dose. Use 1 spray in 1 nostril. Repeat with second device in other nostril after 2-3 minutes ifno or minimal response. Patient not taking: Administer 1 spray into 1 nostril right away if opioid overdose is suspected. Call 911. If no response in 2 to 3 minutes, administer another spray in the other nostril using a newdevice. Repeat every 2 to 3 minutes as needed in alternating nostrils until help arrives. Reported on 08/05/2025 OLANZapine (ZyPREXA) 5 mg tablet Take 1 tablet (5 mg total) by mouth at bedtime. Patient not taking: Reported on 08/05/2025 predniSONE (Deltasone) 10 mg tablet Take 1 tablet (10 mg total) by mouth as directed. Take 1 tablet07/23-07/29, 1/2 tab 07/30 -08/04 and then stop Patient not taking: Reported on 08/05/2025 OBJECTIVE VITAL SIGNS Temperature: [36.8 ??C] 36.8 ??C Blood Pressure: (128)/(88) 128/88 Pulse Rate: [111] 111 PHYSICAL EXAM General: Patient is alert, oriented, teary eyed during the visit more than once. Eyes: Anicteric sclera, Mouth: Oral mucosa pink, [...] the past 24 hours) Albumin Collection Time: 08/05/25 1:42 PM Result Value Albumin, S 4.5 Alkaline Phosphatase Collection Time: 08/05/25 1:42 PM Result Value Alkaline Phosphatase, S 93 ALT (Alanine Aminotransferase) Collection Time: 08/05/25 1:42 PM Result Value Alanine Aminotransferase (ALT), S 36 AST (Aspartate Aminotransferase) Collection Time: 08/05/25 1:42 PM Result Value Aspartate Aminotransferase (AST), P 22 Bilirubin, Total Collection Time: 08/05/25 1:42 PM Result Value Bilirubin, Total, P 0.3 BUN (Blood Urea Nitrogen) Collection Time: 08/05/25 1:42 PM Result Value BUN (Blood Urea Nitrogen), S 11 Calcium, Total Collection Time: 08/05/25 1:42 PM Result Value Calcium, Total, S 9.2 CBC no call back, reflex T/S HGB <8 Collection Time: 08/05/25 1:42 PM Result Value Hemoglobin 12.4 Hematocrit 37.5 Erythrocytes 4.52 MCV 83.0 RBC Distrib Width 14.0 Platelet Count 207 Leukocytes 4.2 Neutrophils 3.02 Lymphocytes 0.81 (L) Monocytes 0.25 (L) Eosinophils 0.06 Basophils <0.03 Creatinine with Estimated GFR Collection Time: 08/05/25 1:42 PM Result Value Creatinine 0.89 Estimated GFR (eGFR) 86 Magnesium Collection Time: 08/05/25 1:42 PM Result Value Magnesium, S 2.2 Potassium Collection Time: 08/05/25 1:42 PM Result Value Potassium, S 3.9 Sodium Collection Time: 08/05/25 1:42 PM Result Value Sodium, S 139 LD (Lactate Dehydrogenase) Collection Time: 08/05/25 1:42 PM Result Value Hospital Deanna LD 174 ASSESSMENT / PLAN # Diffuse Abdominal Pain, [...] mg daily 06/24/2025; discontinued 06/22/[address] Rousesau. - Dilaudid to 2 mg q 6 hrs PRN - Will continue on Buprenorphine patch - Levsin PRN - GIH consult, 07/16/2025, and recommended Protonix 40 mg po BID (taking only daily as of 08/05) for8 weeks; discussed increasing from daily to BID dosing on 08/05 for which she is agreeable then daily thereafter; MiraLAX daily. Hyoscyamine prn. - EGD in 3 months (around 09/2025). Avoid all NSAIDs - Colonoscopy on 07/30/2025 showed preparation of the colon was inadequate. One 2 mm polyp in the transverse colon removed with a cold biopsy forceps. Resected and retrieved. Biopsies remain pending as of 08/05/25. - Palliative Medicine last 07/21/25. # Nausea/Vomiting - Compazine, Zofran and olanzapine PRN. # Management of narcotic associated constipation with Stool Belcher on CT - Per GI and Palliative [...] daily and was restarted hydrochlorothiazide 25 mg daily; discontinued with normal BPs. BP in the 120s/80s per report on 07/22/25, 07/29/25 and 08/05/25. She was instructed to go to ED if sheexperiences chest pain or shortness of breath. # [...] transplant (HCC) on 12/10/24, currently Day + 238 # Immunodeficiency (HCC) secondary immunosuppressive medication - Bone marrow biopsy done on 02/18/25, MRD negative, Non sorted chimerism 100 % donor ( 3 loci) and BCR/ABL1 p210 mRNA negative. - Peripheral sort chimerism from 06/25 showed 90% donor DNA in CD 3 and 100% donor DNA in CD 33 - Continue to check RT PCR [id number] on peripheral blood every 6 weeks, most [...] PO daily as of 07/02/[address] Rosuseau - She has been tapering down prednisone as directed. As of 07/29/25, she is taking 5 mg daily. She has been asked to continue this dose until she is seen in the clinic next, to prevent adrenal insufficiency as she notes that she is so very fatigued. - Check cortisol level at next visit on 08/13/25. 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 - Last Palliative visit on 07/22/25; Reiki session 08/11/25 - Start Hydroxyzine per Palliative (resent RX on 07/21); using only very intermittently; encouraged use during visit on 08/05/25. - Seeing therapist weekly. 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 Has only peripheral vision in right eye. Wears glasses. - Followed by [facility] in [place], [place]. - Patient will notify team if any vision changes. # Blood Products # TACO - Requires infusion of platelets at a slower rate. # CMV- last checked 07/16/25 negative # EBV - last checked 07/29/25 negative (recheck next visit given prednisone use) # Disposition - Follow-up labs and provider visit on Ch [address] Rousseau on 08/13/25. - Check cortisol upon return - Blood cultures and BCR-ABL on 08/05 (discussed case with Dr. Rousseau) [1] No current facility-administered medications for this visit. * Elise Pizarro, RHelio. - 08/05/2025 2:00 PM CDT S/P Allo Transplant for Leukemia Myeloid Chronic BCR/ABL Positive Not Having Achieved Remission (HCC) [C92.10]. Day 0 = 12/10/2024 (238 days). Please see previous notes regarding patient's history. Patient seen in conjunction with Arlen James APRN, C.N.P., D.N.P. Please see her note for complete systems review. Systems review: Reports night sweats and recent chills. Denies fevers. Reports significant fatigue. Skin: Tenderness of the skin on her back. No skin abnormalities seen at this time. Eyes: Dry eyes occasionally but uses refresh tears as needed. GI: Reports nausea without vomiting. BM 2 x daily, alternating formed and loose. Reports she is eating well and drinking roughly 60 oz of fluid daily. Respiratory: Reports some mild SOB last week upon waking up, but this has since gone away. Cardiac: Reports her heart races with anxiety, otherwise she denies heart racing or palpitations. Neuro: States she feels a burning sensation on her face, arms and legs. This feels more like nerve pain and electrical radiation throughout these areas. Reports this as a 5/10 pain. Reports occasional tingling in her feet, chronically. Psychosocial: States she is feeling pretty down right now due to not being able to go about her daily activities as she used to. She is also very anxious. She reports anxiety that ebbs and flows. Sheis seeing a therapist weekly at home. She has not really been using her hydroxyzine. Re-educated that this can be taken every 6 hours as needed and is to be used to help her anxiety. She verbalized understanding. Plan of care discussed with provider: Patient's transition from Hospital Based Outpatient to Outpatient BMT was completed on 12/31/2024. New medication changes with this visit: Patient discontinued prednisone on her own and states this is because it made her feel crappy. Pending Results: EBV, blood cultures (assessing due to chills), BCR/ABL Interim Plans: Follow with Palliative on 08/11. Psych visit moved up to 08/25/25. Lab Plan: BCR/ABL every 6 weeks Future BMT Appointments: Return on 08/13/25 with provider/RN/pharm plus allo labs, AM cortisol, and Sort Chimerism All questions answered, patient verbalized understanding of plan, patient will call with any additional questions or concerns prior to return appointment. Elise Pizarro R.N. documented in this encounter Plan of Treatment Upcoming Encounters Date Type Department Care Team (Late st Contact Info) Description 08/11/2025 8:00 AM CDT Office Visit Department of Palliative Care in [place], [place] [address] [place] [phone] Meghan Osorio M.D. [address] [place] [phone] 08/11/2025 9:00 AM CDT Nurse Only Section of Infectious Diseases in [place], [place] [address] [place] [phone] Jessica Rousseau M.B.B.S. [address] [place] [phone] 08/11/2025 1:00 PM CDT Clinical Support Department of Palliative Care in [place], [place] [address] [place] [phone] Uma Aly APRN, Satnam.N.P., M.S.N. [address] [place] [phone] 08/13/2025 10:00 AM CDT Lab Department of Laboratory Medicine and Pathology, [facility], in [place], [place] [address] [place] [phone] Jessica Rousseau M.B.B.S. [address] [place] [phone] 08/13/2025 10:30 AM CDT [facility] [place], [place] [address] [place] [phone] Jessica Rousseau M.B.B.S. [address] [place] [phone] Nelli Parker, Pharm.D., R.Ph. [address] [place] [phone] 08/13/2025 11:00 AM CDT Nurse Only [facility] [place], [place] [address] [place] [phone] Jessica Rousseau M.B.B.S. [address] [place] [phone] 08/13/2025 11:30 AM CDT [facility] [place], [place] [address] [place] [phone] Jessica Rousseau M.B.B.S. [address] [place] [phone] 08/13/2025 3:00 PM CDT Clinical Support Department of Palliative Care in [place], [place] [address] [place] [phone] Meghan Osorio M.D. [address] [place] [phone] Mary Garcia M.S.W., L.I.C.S.W. [address] [place] [phone] 08/25/2025 8:00 AM CDT Telemedicine [facility] in [place], [place] [address] [place] [phone] Jessica Rousseau M.B.B.S. [address] [place] [phone] Pending Results Name Type Priority Associated Diagnoses Date /Time Bacteria / Helen Culture, Blood #1 Microbiology Routine Leukemia Myeloid Chronic BCR/ABL Positive Not Having Achieved Remission (HCC) 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) 08/05/2025 3:23 PM CDT Bacteria / Helen Culture, Blood #2 Microbiology Routine Leukemia Myeloid Chronic BCR/ABL Positive Not Having Achieved Remission (HCC) 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) 08/05/2025 3:23 PM CDT Scheduled Orders Name Type Priority Associated Diagnoses Orde r Schedule Cortisol Lab Routine Leukemia Myeloid Chronic BCR/ABL Positive Not Having Achieved Remission (HCC) 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) Expected: 08/13/2025, Expires: 11/04/2026 Chimerism Transplant Sorted Cells Lab Routine Leukemia Myeloid Chronic BCR/ABL Positive Not Having Achieved Remission (HCC) 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) Expected: 08/13/2025, Expires: 11/04/2026 Scheduled Referrals Name Type Priority Associated Diagnoses Orde r Schedule Sleep Medicine - General consult (clinic) Outpatient Referral Routine Leukemia Myeloid Chronic BCR/ABL Positive Not Having Achieved Remission (HCC) 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) Expected: 08/05/2025, Expires: 11/04/2026 documented as of this encounter Results * BCR/ABL1 Qualitative Diagnostic Assay with Reflex to BCR/ABL1 p190 Quantitative Assay or BCR/ABL1 p210 Quantitative Assay (08/05/2025 3:23 PM CDT) Specimen Type Peripheral blood 08/07 3:10 PM CDT DTL BCR/ABL1 Reflex Result see interpretation 08/07/2025 3:10 PM CDT DTL Interpretation Peripheral blood, BCR/ABL1 mRNA analysis, qualitative: Negative. No BCR/ABL1 mRNA transcripts were detected. Method summary: The presence or absence of BCR/ABL1 mRNA transcripts was evaluated using a qualitative, reverse painter and decorator PCR-based assay. The assay detects nearly all published and theoretical BCR/ABL1 fusion forms including the common e13/e14-a2 (p210) and e1-a2 (p190) transcripts, as well as other rarer variants (e.g. e19-a2 (p230), e13/e14-a3, e1-a3, etc.). The limit of detection for this assay is 0.1%. Please contact the lab at [phone] with questions or if additional testing is required. See [facility] Test Catalog for additional method details. Signing Pathologist: Deidra Pruitt M.D. 08/07/2025 3:10 PM CDT DTL Comment: ----ADDITIONAL INFORMATION---- This test was developed and its performance characteristics determined by [facility] in a manner consistent with CLIA requirements. This test has not been cleared or approved by the U.S. Food and Drug Administration. Blood (Blood, Peripheral Draw) 08/05/2025 3:23 PM CDT 08/05/2025 3:42 PM CDT Jamari Horne APRNNLuigi., D.N.P. LAB GENETIC TE STING Final Result Performing Organization Address City/State/[facility] Co de Phone Number [facility] [address] [place] [address], [facility] D[facility] [address] [place] [address] documented in this encounter Visit Diagnoses Diagnosis [...] as of this encounter Care Teams Staff Development Educator Relationship Specialty Start Date End Date Renzo Andres M.D. [address] [place] [phone] PCP - General Family Medicine 04/25/23 documented as of this encounter
--- OUTSIDE RECORDS SUMMARY | 2025-08-05 15:00 | XMS_ITS | Encounter Summary ---
Author Organization [facility] Address [address] [place] [address] Care Team Providers Care Folding Machine Feeder Name Role Phone Renzo Andres M.D. Primary Care Provider Encounter Details Date Type Department Care Team (Late st Contact Info) Description 08/05/2025 3:00 PM CDT Lab Department of Laboratory Medicine and Pathology, [facility], in [place], [place] [address] [place] [phone] Arlen James APRN, C.N.P., D.N.P. [address] [place] [phone] Leukemia Myeloid Chronic BCR/ABL Positive Not Having [...] needed for daily living? No 07/02/2025 [facility] Utilities Answer Date Recorded In the past 12 months has th [employer] electric, gas, oil, or water company threatened to shut off services in your home? No 07/02/2025 Depression Answer Date Recor ded PHQ-9 Total Score (max 27) 12 07/08 Housing Stability Answer Date Recorded What is your living situation today? I have a [facility] place to live 07/02/2025 Education Answer Date Recorded What is the highest level of school you have completed or the highest degree you have received? Some college, no degree 04/24/2019 Comments No Sex and Gender Information Value Date Recorded Sex Assigned at Female 12/26/2018 8:37 PM STAFF NURSE ANESTHETIST Legal Sex Female 2:43 PM STAFF NURSE ANESTHETIST Gender Identity Female 12/26/2018 8:37 PM STAFF NURSE ANESTHETIST Sexual Orientation Choose not to disclose 2020 3:46 PM CDT documented as of this encounter Plan of Treatment Upcoming Encounters Date Type Department Care Team (Late st Contact Info) Description 08/11/2025 8:00 AM CDT Office Visit Department of Palliative Care in [place], [place] [address] [place] [phone] Meghan Osorio M.D. [address] [place] [phone] 08/11/2025 9:00 AM CDT Nurse Only Section of Infectious Diseases in [place], [place] [address] [place] [phone] Jessica Rousseau M.B.B.S. [address] [place] [phone] 08/11/2025 1:00 PM CDT Clinical Support Department of Palliative Care in [place], [place] [address] [place] [phone] Uma Aly APRN, CKatalinaNKatalinaP., M.S.N. [address] [place] [phone] 08/13/2025 10:00 AM CDT Lab Department of Laboratory Medicine and Pathology, [facility], in [place], [place] [address] [place] [phone] Jessica Rousseau M.B.B.S. [address] [place] [phone] 08/13/2025 10:30 AM CDT Office Visit [facility] in [place], [place] [address] [place] [phone] Jessica Rousseau M.B.B.S. [address] [place] [phone] Nelli Parker, Pharm.D., R.Ph. [address] [place] [phone] 08/13/2025 11:00 AM CDT Nurse Only [facility] [place], [place] [address] [place] [phone] Jessica Rousseau M.B.B.S. [address] [place] [phone] 08/13/2025 11:30 AM CDT Office Visit [facility] Clinical [facility]eneration in [place], [place] [address] [place] [phone] Jessica Rousseau M.B.B.S. [address] [place] [phone] 08/13/2025 3:00 PM CDT Clinical Support Department of Palliative Care in [place], [place] [address] [place] [phone] Meghan Osorio M.D. [address] [place] [phone] Mary Garica M.SLavern., L.I.C.S.W. [address] [place] [phone] 08/25/2025 8:00 AM CDT Telemedicine [facility] Clinical [facility]eneration in [place], [place] [address] [place] [address] Jessica Rousseau M.B.B.S. 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) BACTERIA / HELEN CULTURE, BLOOD Routine 08/05/2025 3:23 PM CDT 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 The assay detects nearly all published and theoretical BCR/ABL1 fusion forms including the common e13/e14-a2 (p210) and e1-a2 (p190) transcripts, as well as other rarer variants (e.g. e19-a2 (p230), e13/e14-a3, e1-a3, etc.). The limit of detection for this assay is 0.1%. Please contact the lab at [phone] with questions or if additional testing is required. See [facility] Test Catalog for additional method details. Signing Pathologist: Deidra Pruitt M.D. 08/07/2025 3:10 PM CDT DTL Comment: ----ADDITIONAL INFORMATION---- This test was developed and its performance characteristics determined by [facility] in a manner consistent with CLIA requirements. This test has not been cleared or approved by the U.S. Food and Drug Administration. Blood (Blood, Peripheral Draw) 08/05/2025 3:23 PM CDT 08/05/2025 3:42 PM CDT us Arlen James APRN, C.N.P., D.N.P. LAB GENETIC TE STING Final Result [facility] [address] [place] [address], [facility] 200 [facility] 200 [place] [address] documented in this encounter Visit Diagnoses Diagnosis [...] documented as of this encounter Care Teams Folding Machine Feeder Relationship Specialty Start Date End Date Renzo Andres M.D. [address] [place] [phone] PCP - General Family Medicine 04/25/23 documented as of this encounter
--- OUTSIDE RECORDS SUMMARY | 2025-08-09 13:26 | XMS_ITS | Clinical Summary ---
Author Organization [facility] Address [address] [place] [address] Care Team Providers Care Sql Architect Name Role Phone System, Provider Not In [...] 09/02/2022 09/02/2012, 07/10/2003 PAP 10/15/2022 10/15/2019, 11/25/2013 PHQ-2 (once per calendar year) 2024 11/23/2022 , 06/08/2022 COVID-19 VACCINE (4 - 2024-2 6 season) 2025 11/10/2021, 03/30/2021, 03/02/2021 INFLUENZA VACCINE (#1) 2025 9, 09/02/2012, 08/14/2011, Additional history exists HEPATITIS B VACCINE Completed 03/07/2001, 02/19/2001, 10/31/2000, Additional history exists MENINGITIS VACCINE Completed 04/26/2007 HPV VACCINE Completed 11/08/2007, 07/2007, 04/26/2007 HIV SCREENING Completed 12/26/2010 HEPATITIS C SCREENING Completed 08/02/2023, 019 [place] [employer] [place] [employer] [place] Care Teams Sql Architect Relationship Specialty Start Date End Date System, Provider Not In PCP - General Clinic 06/08/22
--- OUTSIDE RECORDS SUMMARY | 2025-08-09 13:26 | XMS_ITS | Clinical Summary ---
Author Organization [facility] Address [address] [place] [address] Care Team Providers Care Vision Teacher Name Role Phone Antoinette Palacio PhD, LP Unavailable [phone] Shweta Graciakim Huber STAFF ANESTHETIST Unavailable [phone] Unavailable [phone] Staff, Other Clinical Unavailable UnavailErmelinda Cadet MD [...] Encounters Date Type Department Care Team Description 07/30/2025 Telephone [facility] 200 [place] [address] Ivy Garcia, RN [facility] 07/30/2025 Telephone [facility] [address] [place] [address] Ivy Garcia RN [facility] 07/30/2025 Telephone [facility] [address] [place] [address] Ivy Garcia, RN [facility] 07/29/2025 1:00 PM CDT Telemedicine [facility] [address] [facility] [address] [place] [phone] Renita Pichardo PsyD, FIDENCIO Psychotherapy 07/13/2025 1:45 PM CDT Telemedicine [facility] [address] [place] [address] Renita Pichardo PsyD, LP Psychotherapy 07/06/2025 2:45 PM CDT Telemedicine [facility] [address] [place] [address] Renita Pichardo PsyD, LP Psychotherapy 07/01/2025 Nurse Triage [facility] [address] [place] [address] Ermelinda Pierre MD Abdominal Pain 06/29/2025 11:15 AM CDT Telemedicine [facility] [address] [place] [address] Renita Pichardo PsyD, FIDENCIO Psychotherapy 06/22/2025 11:15 AM CDT Telemedicine [facility] [address] [place] [address] Renita Pichardo PsyD, FIDENCIO Psychotherapy 06/18/2025 Telephone [facility] [address] [place] [address] Renita Pichardo PsyD, FIDENCIO Late Cancel Appointment (APT 06/19/2025) 06/17/2025 Telephone [facility] [address] [place] [address] Reinta Pichardo PsyD, FIDENCIO Late Cancel Appointment 06/08/2025 11:15 AM CDT Telemedicine [facility] [address] [place] [address] Renita Pichardo PsyD, FIDENCIO Psychotherapy 06/08/2025 Nurse Triage [facility] [address] [place] [address] Ermleinda Pierre MD Appointment 06/05/2025 1:00 PM CDT Telemedicine [facility] [address] [place] [address] Felicia Weathers NP Follow Up; Medication Management; Telehealth 06/05/2025 Travel 06/01/2025 8:45 AM CDT Telemedicine [facility] [address] [place] [address] Renita Pichardo PsyD, FIDENCIO Psychotherapy 05/29/2025 Telephone [facility] [address] [place] [address] Iris Victor, LEACHER Care Coordination (Re Engagement ) 05/28/2025 Telephone [facility] [address] [place] [address] Renita Pichardo PsyD, FIDENCIO FYI (Regarding appointment) 05/20/2025 1:45 PM CDT Telemedicine [facility] [address] [place] [address] Renita Pichardo PsyD, LP Psychotherapy 05/12/2025 1:45 PM CDT Telemedicine [facility] [address] [place] [address] Renita Pichardo PsyD, LP Psychotherapy from Last 3 Months Immunizations Immunization Administration Dates Next Due COVID-19 vaccine (Moderna 100mcg/0.5mL) PF, MDV 11/10/2021 Hepatitis B (Adult) 03/07/2001,10/31/2000,1999 Hepatitis B [...] on file Legal Sex Female 5:23 AM SANITATION TRUCK CLEANER Gender Identity Not on file Sexual Orientation [...] 36.2 C (97.1 F) 11/21/2023 9:09 AM SANITATION TRUCK CLEANER Respiratory Rate 18 11/21/2023 9:09 AM SANITATION TRUCK CLEANER Oxygen Saturation 98% 06/23/2024 10:48 AM CDT Inhaled Oxygen Concentration - - Weight 99.1 kg (218 lb 8 oz) 06/23/2024 10:48 AM CDT Height 172 cm (5' 7.72) 06/23/2024 10:48 AM CDT Body Mass Index 33.5 06/23/2024 10:48 AM CDT Plan of Treatment Upcoming Encounters Date Type Department Care Team (Late st Contact Info) Description 08/12/2025 1:00 PM CDT Telemedicine [facility] 280 [facility] [address] [place] [phone] Renita Pichardo, Hen[place], LP [address] [facility] [address] [place] [phone] 08/14/2025 10:00 AM CDT Appointment [facility] 200 [place] [address] 08/28/2025 1:00 PM CDT Telemedicine [facility] [address] [place] [address] Felicia Weathers, MUSTAPHA [address] [place] [address] Health Maintenance Due Date Last Done Comments Pneumococcal series for age 6-49 (1 of 2 - PCV) 02/03/2008 Tetanus booster 09/02/2022 09/02/2012, 07/10/2003 Pap test for age 21-65 10/15/2022 9 (Verified in Care Everywhere or Patient Record), 11/25/2013, 03/03/2011, Additional history exists BMI (ht and wt on same day) for age 18+ 06/23/2025 06/23/2024, 02/15/2023, 09/19/2022, Additional history exists COVID-19 vaccine series ( season) 2025 11/10/2021, 03/30/2021, 03/02/2021 Influenza Vaccine (#1) 2025 9, 09/02/2012, 09/02/2012, Additional history exists Depression screening for age 12+ 06/05/2026 06/05/2025, 10/02/2024, 09/30/2024, Additional history exists RSV vaccine for adults or (1 - 1-dose 75+ series) 02/03/2064 Hepatitis B series for 19+ Completed 03/07, 02/19/2001, 10/31/2000, Additional history exists HPV series for age 9-45 Completed 11/08/20 07, 06/27/2007, 04/26/2007 HIV for age 15-65 Completed 12/26/2010 Hepatitis C screening for ag e 18-79 Completed 08/02/2023 Procedures Procedure Name Priority Date/Time Associated Diagnosis Comments ANTI HCV Routine 08/02/2023 1:57 PM CDT Need for hepatitis C screening test LICENSED CLINICAL PSYCHOLOGIST THIN PREP PAP SCREEN IMAGED Routine 11/25/2013 11:15 AM SANITATION TRUCK CLEANER Screening for malignant neoplasm of the cervix ANTI HIV 1/2 Routine 12/26/2010 5:05 PM SANITATION TRUCK CLEANER Supervision of normal first (HC) from Last 3 Months or Most Recently Relevant to Health Maintenance Results * ANTI HCV (08/02/2023 1:57 PM CDT) HEPATITIS C ANTIBODY Non-Reacti ve Non-React nina 08/03/2023 3:36 PM CDT [facility] Comment:Please note, per www .CDC.gov: [...] us Estefany BLAND SEND OUTS Final Result [facility] SENDOUT INTERNAL ZIP [id number] [address] [place] [address] * LICENSED CLINICAL PSYCHOLOGIST THIN PREP PAP SCREEN IMAGED (11/25/2013 11:15 AM SANITATION TRUCK CLEANER) CYTOLOGY CYTOPATHOLOGY REPORT [facility] Status: Final Status [id number] CLINICAL INFORMATION Last Date of LMP :11/17/13 Last Pap Date :03/03/2011 Last Pap Result :NIL ABN [place]/Bx Past 5 YRS :None Hormone Usage :BCP/OCP/Patch/Rin g Menstrual Status :Regular Periods [place]/Bx done today :No Additional Information :None given [...] malignant lesions. COLLECTED:11/25/13 ACCESSIONED: 11/26/13 SIGNED: 12/02/13 [facility] PAP [place] CODE NIL [facility] Tissue specimen (specimen) (Cervical/Vagina l) 11/25/2013 11:15 AM SANITATION TRUCK CLEANER 11/25/2013 11:12 AM SANITATION TRUCK CLEANER Cecile Costa PATHOLOGY/CYTOLOGY Final Resu lt [facility] INTERNAL ZIP [id number] [place] [address] * ANTI HIV 1/2 (12/26/2010 5:05 PM SANITATION TRUCK CLEANER) ANTI HIV 1/2 Non-reacti ve [facility] Blood specimen (specimen) BLOOD SPECIMEN / Unknown 12/26/2010 5:05 PM SANITATION TRUCK CLEANER 12/26/2010 4:55 PM SANITATION TRUCK CLEANER us Ladonna Nathan ARMHOLE BASTER JUMPBASTING SEND OUTS Final Result [facility] INTERNAL ZIP [id number] [address] from Last 3 Months or Most Recently Relevant to Health Maintenance Insurance MEDICARE [place] ONLY MEDICARE PART A HB ONLY MEDICARE PART B HB ONLY BLUE [facility] [place] [phone] (Home) ATTN: FRANK WHITE [address] [place] [phone] Care Teams Vision Teacher Relationship Specialty Start Date End Date Ermelinda Pierre MD [address] [place] [address] PCP - General Family Practice 06/23/24 Antoinette Palacio, PhD, LP Psychologist Psychology 04/24/12 Gracia Rock CNS [address] [facility] [place] [address] Consulting Physician Clinical Nurse Specialist 07/07/[address] [facility] [address] Registered Dietitian Network Lead 07/07/22 Staff, Other Clinical . Therapist Mental Health 07/03/22
[2025-08-09 13:39] VITALS: BP 137/99; PULSE 113; RESP 18; TEMP 36.4; O2SAT 98; BMI 33.5
--- NOTE | 2025-08-09 13:52 | ED.GENADULT ---
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 She has had a bone marrow transplant through [facility] in November. She is not on any immunosuppressive is but is on prophylactic amoxicillin, Bactrim, acyclovir, and posaconazole. She presents to the ER today with concern for body aches and chills ongoing for about 4 days. She does deal with a lot of chronic pain and had been experiencing some abdominal pain for the past couple of weeks. Workup for that so far is unrevealing. She has even had a colonoscopy that is been negative and showed no evidence for [id number] disease. That pain has actually gotten better and has been largely gone for the past week. She still has some other chronic pain due to her low back and fibromyalgia. She does have Tylenol and Dilaudid at home to use for pain. For the past several days she has had more of a diffuse body aches with shooting pains in her arms and legs bilaterally. For the past couple of days is been worse and is now in her torso and back. It is different than her chronic pain. Today she also started to have chills but no objectively measured fever. She has been taking Tylenol without any improvement. She took some Dilaudid without any improvement. She does not have any cough or shortness of breath. No sore throat. No earache. No headache. No chest pain or cough. No new abdominal pain. Urination has been normal. Bowel movements have been normal. Given the worsening symptoms she contacted her bone marrow team and they told her to come to her local ER to be evaluated. Related Data Home Medications ?Medication ?Instructions ?Recorded ?Confirmed duloxetine 60 mg capsule,delayed 60 mg PO BID 08/06/22 08/09/25 release acyclovir 400 mg tablet 400 mg PO BID 05/31/25 08/09/25 aripiprazole 10 mg tablet 10 mg PO DAILY 05/31/25 08/09/25 buprenorphine 5 mcg/hour weekly 1 patch topical Q7D chronic pain 05/31/25 08/09/25 transdermal patch hydromorphone 1 mg/mL oral liquid 0.5 mg PO DAILY PRN pain 05/31/25 08/09/25 pantoprazole 40 mg tablet,delayed 40 mg PO BID 05/31/25 08/09/25 release penicillin V potassium 500 mg 500 mg PO BID 05/31/25 08/09/25 tablet posaconazole 100 mg tablet,delayed 100 mg PO TID 05/31/25 08/09/25 release budesonide 3 mg 3 mg PO BID 06/14/25 08/09/25 capsule,delayed,extended release aluminum-mag hydroxide-simethicone 30 ml PO Q4H PRN 07/19/25 08/09/25 200 mg-200 mg-20 mg/5 mL oral susp (Antacid Regular Strength) cyclobenzaprine 5 mg tablet mg PO 07/19/25 hydrochlorothiazide 25 mg tablet 25 mg PO DAILY 07/19/25 08/09/25 hydromorphone 2 mg tablet PO 07/19/25 hydroxyzine HCl 25 mg tablet mg PO 07/19/25 hyoscyamine sulfate 0.125 mg tablet mg PO 07/19/25 olanzapine 2.5 mg tablet mg PO BID 07/19/25 olanzapine 5 mg tablet 5 mg PO QPM 07/19/25 08/09/25 peg 3350-electrolytes 236 ml PO 07/19/25 gram-22.74 gram-6.74 gram-5.86 gram solution (GaviLyte-G) prednisone 10 mg tablet mg PO 07/19/25 prochlorperazine maleate 10 mg 10 mg PO Q6H PRN 07/19/25 08/09/25 tablet tramadol 50 mg tablet PO 07/19/25 Previous Rx's ?Medication ?Instructions ?Recorded ketorolac 10 mg tablet 10 mg PO Q6H PRN pain #20 tabs 06/17/25 cyclobenzaprine 10 mg tablet 10 mg PO HS PRN insomnia #14 tabs 07/02/25 hydroxyzine pamoate 25 mg capsule 25 mg PO TID PRN Pain medication 07/02/25 enhancement #30 caps Allergies Allergy/AdvReac Type Severity Reaction Status Date / Time grapefruit Allergy Intermediate other Verified 08/09/25 13:44 amoxicillin Allergy Mild other Verified 08/09/25 13:44 bupropion (From Wellbutrin) Allergy Mild Hives Verified 08/09/25 13:44 [facility] Medical History Closed fracture of radius ?S52.90XA - Unspecified fracture of unspecified forearm, initial encounter for closed fracture (ICD-10) Depression ?F32.A - Depression, unspecified (ICD-10) Violation of controlled substance agreement ?Z91.148 - Patient's other noncompliance with medication regimen for other reason (ICD-10) Obesity ?E66.9 - Obesity, unspecified (ICD-10) Disorder of eye movements ?H51.9 - Unspecified disorder of binocular movement (ICD-10) Sciatica ?M54.30 - Sciatica, unspecified side (ICD-10) Neuropathy ?G62.9 - Polyneuropathy, unspecified (ICD-10) Migraines ?G43.909 - Migraine, unspecified, not intractable, without status migrainosus (ICD-10) Irritable bowel ?K58.9 - Irritable bowel syndrome, unspecified (ICD-10) Fibromyalgia ?M79.7 - Fibromyalgia (ICD-10) Anxiety ?F41.9 - Anxiety disorder, unspecified (ICD-10) Chronic myeloid leukemia (CML), BCR/ABL1-positive, in remission ?C92.11 - Chronic myeloid leukemia, BCR/ABL-positive, in remission (ICD-10) Surgical History History of eye surgery ?Z98.890 - Other specified postprocedural states (ICD-10) History of dilation and curettage ?Z98.890 - Other specified postprocedural states (ICD-10) History of bone marrow biopsy ?Z98.890 - Other specified postprocedural states (ICD-10) Social History Smoking Status: Never smoker Do you use any of these nicotine containing products: None Second hand tobacco smoke exposure: No How often do you have a drink containing alcohol: never How often do you have six or more drinks on one occasion: Never AUDIT-C Alcohol total score: 0 Non-prescribed substance use: denies use service: No Exam Narrative: Exam Narrative: Constitutional: Appears well-developed and well-nourished. Alert. Conversant. Non toxic. HENT: Head: Atraumatic. Nose: Nose normal. Mouth/Throat: Oral mucosa is clear and moist. no trismus. Pharynx normal. Tonsils symmetric. No tonsillar enlargement, erythema, or exudate. TMs normal bilaterally. Eyes: Conjunctivae normal. EOM normal. Pupils equal, round, and reactive to light. No scleral icterus. Neck: Normal range of motion. Neck supple. No tracheal deviation present. Cardiovascular: Normal rate, regular rhythm. No gallop. No friction rub. No murmur heard. Symmetric radial artery pulses Pulmonary/Chest: Effort normal. No stridor. No respiratory distress. No wheezes. No rales. No rhonchi . No tenderness. Abdominal: Soft. Bowel sounds normal. No distension. No mass. Left lower quadrant tenderness. No rebound. No guarding. No CVA tenderness Musculoskeletal: RUE: Normal range of motion. No tenderness. No deformity LUE: Normal range of motion. No tenderness. No deformity RLE: Normal range of motion. No edema. No tenderness. No deformity LLE: Normal range of motion. No edema. No tenderness. No deformity Neurological: Alert and oriented to person, place, and time. Normal strength. CN II-VII intact. No sensory deficit. GCS eye subscore is 4. GCS verbal subscore is 5. GCS motor subscore is 6. Normal coordination Skin: Skin is warm and dry. No rash noted. No pallor. Normal capillary refill. Psychiatric: Normal mood. Normal affect. Polite. Const: Vital Signs, click to edit/add: Vital Signs - 24 hr 08/09/25 13:39 08/09/25 16:26 Temperature 97.6 F 97.7 F Pulse Rate [Right Pulse Oximeter] 113 H 91 Respiratory Rate 18 18 Blood Pressure [Ri ght Upper Arm] 137/99 H 124/91 H Pulse Oximetry 98 98 Oxygen Delivery Me thod Room Air Room Air Course Vital Signs Vital signs: Initial Vital Signs Temperature 97.6 F 08/09/25 13:39 Temperature Source Temporal Artery Scan 08/09/25 13:39 Pulse Rate 113 H 08/09/25 13:39 Pulse Rhythm Regular 08/09/25 13:39 Pulse Strength 3+ Normal 08/09/25 13:39 Respiratory Rate 18 08/09/25 13:39 Blood Pressure 137/99 H 08/09/25 13:39 Blood Pressure Mean 111 H 08/09/25 13:39 Blood Pressure Position Sitting 08/09/25 13:39 Pulse Oximetry 98 08/09/25 13:39 Oxygen Delivery Method Room Air 08/09/25 13:39 Vital Signs Temperature 97.6 F 08/09/25 13:39 Pulse Rate 113 H 08/09/25 13:39 Respiratory Rate 18 08/09/25 13:39 Blood Pressure 137/99 H 08/09/25 13:39 Pulse Oximetry 98 08/09/25 13:39 Oxygen Delivery Method Room Air 08/09/25 13:39 Temperature 97.7 F 08/09/25 16:26 Pulse Rate 91 08/09/25 16:26 Respiratory Rate 18 08/09/25 16:26 Blood Pressure 124/91 H 08/09/25 16:26 Pulse Oximetry 98 08/09/25 16:26 Oxygen Delivery Method Room Air 08/09/25 16:26 Medications Administered Medications: Discontinued Medications Generic Name Dose Route Start Last Admin Trade Name Freq PRN Reason Stop Dose Admin Hydromorphone HCl 2 mg 08/09/25 16:28 08/09/25 16:46 Hydromorphone 2 Mg Tablet PO 08/09/25 16:29 2 mg ONCE ONE Administration Sodium Chloride 1,000 mls @ 1,000 mls/hr 08/09/25 14:30 08/09/25 16:26 0.9 % Sodium Chloride 1000 Ml IV 08/09/25 15:29 Infused .Q1H MICHELLE Infusion Ketorolac Tromethamine 15 mg 08/09/25 14:21 08/09/25 15:04 Ketorolac 15 Mg/Ml Inj IVP 08/09/25 14:22 15 mg ONCE ONE Administration Medical Decision Making [facility] Narrative Medical decision making narrative: 35-year-old female with a history bone marrow transplant 9 months ago done through [facility] presenting to the ER today with diffuse myalgias and fatigue and chills. Symptoms and ongoing for a few days but a bit worse today. She contacted Bone Marrow Transplant Service by phone today and was referred to her local ER Symptoms of chills and body aches raises concern for possible infection. She has no other clear symptoms to localize the infection however. She is not febrile but she does have a heart rate elevated at 113. Blood pressure is normal. Mental status is normal. No clear evidence for sepsis. Screening venous lactic is normal at 1.9. White count is marginally low at 4.42 and differential shows 70% neutrophils, 20% lymphocytes. We did do a broad workup to look for potential infections. Chest x-ray is negative. She has no cough. COVID/influenza/RSV PCR is negative. Clinical exam does not show any evidence for otitis media, pharyngitis. I do not see any evidence for skin or soft tissue infections on her skin exam. She has no clear UTI symptoms and urinalysis is normal. She had been having some chronic lower abdominal pain that is actually better this week. She still has mild left lower quadrant tenderness prompting CT scan which is negative. She does not have any headache or neck stiffness to raise concern for meningitis. No altered mental status to suggest encephalitis. Discussed with the on-call provider for the bone marrow transplant team for [facility], her stewart bahena nurse practitioner. We discussed this patient's presenting symptoms and labs. At this point workup is reassuring. Both agree that the patient should be appropriate for discharge from the ER with close outpatient follow-up in the bone marrow transplant clinic. She already has an appointment coming up this week. Of note the patient had been on prednisone and finished up taking that on the . Symptoms started on around the . Could potentially be some sore withdrawal from the steroids. However she is not having any hypotension, electrolyte abnormalities, or clear evidence for acute adrenal or cords all insufficiency. In discussion with the BMT team, they are not recommending any steroids at this time. Lab Data Labs: Lab Results 08/09/25 08/09/25 Range/Units 14:40 14:42 WBC 4.42 L (4.50-11.00) K/uL RBC 4.65 (4.00-5.20) m/uL Hgb 12.6 (12.0-16.0) gm/dL Hct 38.0 (33.0-51.0) % MCV 82 (80-100) fL MCH 27 (26-34) pg MCHC 33 (32-36) gm/dL RDW Coeff of [place] 13.3 (11.5-15.5) % Plt Count 218 (140-440) K/uL Neut % (Auto) 69.4 (42.0-72.0) % Lymph % (Auto) 20.4 (20-44) % [place] % (Auto) 7.0 (0.0-11.0) % Eos % (Auto) 1.6 (0.0-7.0) % Baso % (Auto) 0.5 (0.0-3.0) % Neut # (Auto) 3.10 (1.7-7.0) K/uL Lymph # (Auto) 0.90 (0.90-2.90) K/uL [place] # (Auto) 0.30 (0.00-0.90) K/UL Eos # (Auto) 0.10 (0.00-0.50) K/uL Baso # (Auto) 0.00 (0.00-0.30) K/uL Abs Immat Gran (auto) 0.00 (0.00-0.30) K/uL Imm/Tot Granulo (auto) 1.1 % Sodium 138 (135-149) mmol/L Potassium 4.4 (3.6-5.1) mmol/L Chloride 103 (96-114) mmol/L Carbon Dioxide 28 (20-32) mmol/L Anion Gap 7 (7-15) mEq/L BUN 11 (5-24) mg/dL Creatinine 0.8 (0.5-1.5) mg/dL Estimated Creat Clear 98.07 Estimated GFR 98 ml/min Glucose 130 H (60-115) mg/dL Lactate 1.9 (0.5-1.9) mmol/L Calcium 9.4 (8.4-10.6) mg/dL Urine Color Yellow (Yellow) Urine Appearance Clear (Clear) Urine pH 5.5 (5.0-8.5) Ur Specific [place] >= 1.030 (1.000-1.030) Urine Protein Trace A (Negative) Urine Glucose (UA) Negative (Negative) Urine Ketones Negative (Negative) Urine Blood Negative (Negative) Urine Nitrite Negative (Negative) Urine Bilirubin Negative (Negative) Urine Urobilinogen 0.2 (0.2-1.0) Ur Leukocyte Esterase Negative (Negative) Urine RBC 0-2 (0-2) Urine WBC 0-2 (0-5) Ur Squamous Epith Cells None (None-Few) Urine Bacteria None (None) SARS-CoV-2 (PCR) Negative SARS-CoV-2 (Negative) Influenza Type A (PCR) Negative PCR FLU A (Negative) Influenza Type B (PCR) Negative PCR FLU B (Negative) RSV (PCR) Negative PCR RSV (Negative) Imaging Data CT scan - abdomen: Attestation: I have reviewed the pertinent imaging results. Radiologist's impression: IMPRESSION: No acute findings in the abdomen or pelvis. No adenopathy is visualized. Chest x-ray: Attestation: I have reviewed the pertinent imaging results. Radiologist's impression: IMPRESSION: Negative chest. Discharge Plan Discharge Clinical Impression: Myalgia, Chills Patient Disposition: Home, Self-Care Instructions: Musculoskeletal Pain (ED) Additional Instructions: As we discussed, so far your workup looks reassuring. It is very important for you to have checkup with her bone marrow transplant team this week. In the meantime, return to the ER right away if you have worsening symptoms especially fevers, worsening pain, weakness, or if you have new symptoms such as cough, shortness of breath, new rashes, or if you have any other concerns. Please continue on all of your regular medications. Prescriptions: No Action duloxetine 60 mg capsule,delayed release(DR/EC) 60 mg PO BID acyclovir 400 mg tablet 400 mg PO BID aripiprazole 10 mg tablet 10 mg PO DAILY buprenorphine 5 mcg/hour patch weekly 1 patch topical Q7D penicillin V potassium 500 mg tablet 500 mg PO BID pantoprazole 40 mg tablet,delayed release (DR/EC) 40 mg PO BID hydromorphone 1 mg/mL liquid 0.5 mg PO DAILY PRN (Reason: pain) posaconazole 100 mg tablet,delayed release (DR/EC) 100 mg PO TID budesonide 3 mg capsule,delayed,extend.release 3 mg PO BID olanzapine 2.5 mg tablet PO BID hydromorphone 2 mg tablet PO hyoscyamine sulfate 0.125 mg tablet PO hydroxyzine HCl 25 mg tablet PO hydrochlorothiazide 25 mg tablet 25 mg PO DAILY alum-mag hydroxide-simeth [Antacid Regular Strength] 200-200-20 mg/5 mL suspension 30 ml PO Q4H PRN cyclobenzaprine 5 mg tablet PO prednisone 10 mg tablet PO olanzapine 5 mg tablet 5 mg PO QPM prochlorperazine maleate 10 mg tablet 10 mg PO Q6H PRN tramadol 50 mg tablet PO peg 3350-electrolytes [GaviLyte-G] 236-22.74-6.74 -5.86 gram recon soln PO ketorolac 10 mg tablet 10 mg PO Q6H PRN (Reason: pain) Qty: 20 0RF Rx Instructions: maximum total duration of 5 days from all oral, intranasal, or parenteral formulations hydroxyzine pamoate 25 mg capsule 25 mg PO TID PRN (Reason: Pain medication enhancement) Qty: 30 1RF cyclobenzaprine 10 mg tablet 10 mg PO HS PRN (Reason: insomnia) Qty: 14 0RF Follow Up/Referrals: Anny Matthews LOGISTICS OFFICER [Primary Care Provider, Family Practice] Stand Alone Forms: MyHealth Info Instructions
--- NOTE | 2025-08-09 14:21 | CRLHL7_ITS ---
For Patients: As a result of the Century Cures Act, medical imaging exams and procedure reports are released immediately into your electronic medical record. You may view this report before your referring provider. If you have questions, please contact your health care provider. INDICATION: Chills myalgias. Left lower quadrant pain TECHNIQUE: CT abdomen and pelvis without contrast. COMPARISON: CT 06/08/2025 FINDINGS: Lower chest: Unremarkable. Liver: Normal in size and attenuation. No suspicious masses. Gallbladder and bile ducts: No stones or inflammation. No biliary dilatation. Pancreas: Unremarkable. No mass or inflammation. Spleen: Normal in size. No masses. Adrenal glands: Normal in size. No nodules. Kidneys: Normal in size. No suspicious masses, stones, or hydronephrosis. GI tract: Unremarkable. Normal in caliber. No sign of mass or inflammation. Vasculature: Abdominal aorta is normal in caliber. Lymph nodes: No lymphadenopathy. Peritoneum/Abdominal Wall: Unremarkable. No sign of mass or infiltration. No free air or significant free fluid. Pelvis: Unremarkable. No pelvic masses. Bones: Unremarkable for age. IMPRESSION: No acute findings in the abdomen or pelvis. No adenopathy is visualized. Please note that all CT scans at this facility use dose modulation, iterative reconstruction, and/or weight-based dosing when appropriate to reduce radiation dose to as low as reasonably achievable. Dictated by Lashanda Christensen MD @ 08/09/2025 3:31:47 PM (Electronically Signed)
--- NOTE | 2025-08-09 14:21 | CRLHL7_ITS ---
For Patients: As a result of the Century Cures Act, medical imaging exams and procedure reports are released immediately into your electronic medical record. You may view this report before your referring provider. If you have questions, please contact your health care provider. INDICATION: Chills myalgia TECHNIQUE: Two view chest. FINDINGS: The lungs are clear. The heart, mediastinum and pulmonary vessels are of normal size. There is no evidence of pleural disease. IMPRESSION: Negative chest. Dictated by Lashanda Christensen MD @ 08/09/2025 3:12:03 PM (Electronically Signed)
--- OUTSIDE RECORDS SUMMARY | 2025-08-09 14:31 | XMS_ITS | Encounter Summary ---
Author Organization [facility] Address [address] [place] [id number] Care Team Providers Care Ic Designer Custom Name Role Phone Renzo Andres M.D. Primary Care Provider [phone] Encounter Details Date Type Department Care Team (Late st Contact Info) Description 10/25/2022 Orders Only RST [facility] [address] [place] [phone] [facility], Provider, MD Screening Test Laboratory Social History [...] Sex Assigned at Female 12/26/2018 8:37 PM ASSEMBLYMAN OR WOMAN Legal Sex Female 2:43 PM ASSEMBLYMAN OR WOMAN Gender Identity Female 12/26/2018 8:37 PM ASSEMBLYMAN OR WOMAN Sexual Orientation Choose not to disclose 2020 3:46 PM CDT documented as of this encounter Plan of Treatment Upcoming Encounters Date Type Department Care Team (Late st Contact Info) Description 08/11/2025 8:00 AM CDT Office Visit Department of Palliative Care in [place], [place] [address] [place] [phone] Meghan Osorio M.D. 200 [place] [phone] 08/11/2025 9:00 AM CDT Nurse Only Section of Infectious Diseases in [place], [place] [address] [place] [address] Jessica Rousseau M.B.B.S. [address] [place] [phone] 08/11/2025 1:00 PM CDT Clinical Support Department of Palliative Care in [place], [place] [address] [place] [phone] Uma Aly APRN, C.N.P., M.S.N. [address] [place] [phone] 08/13/2025 10:00 AM CDT Lab Department of Laboratory Medicine and Pathology, [facility] in [place], [place] [address] [place] [phone] Jessica Rousseau M.B.B.S. [address] [place] [phone] 08/13/2025 10:30 AM CDT [facility] [place], [place] [address] [place] [phone] Jessica Rousseau M.B.B.S. [address] [place] [phone] Nelli Parker, Pharm.D., R.Ph. [address] [place] [phone] 08/13/2025 11:00 AM CDT [facility] [place], [place] [address] [place] [phone] Jessica Rousseau M.B.B.S. [address] [place] [phone] 08/13/2025 11:30 AM CDT Office Visit [facility] in [place], [place] [address] [place] [phone] Jessica Rousseau M.B.B.S. [address] [place] [phone] 08/13/2025 3:00 PM CDT Clinical Support Department of Palliative Care in [place], [place] [address] [place] [phone] Meghan Osorio M.D. [address] [place] [phone] Mary Garcia M.SGómez, L.I.C.S.W. [address] [place] [phone] 08/25/2025 8:00 AM CDT Telemedicine [facility] in [place], [place] [address] [place] [phone] Jessica Rousseau M.B.B.S. [address] [place] [phone] documented as of this encounter Visit Diagnoses Diagnosis Screening Test Laboratory documented in this encounter Additional Health Concerns Infection Onset Date Last Indicated Resolved Time COVID19 01/07/2023 01/07/2023 01/27/2023 5:15 AM ASSEMBLYMAN OR WOMAN Protective Environment 03/02/2023 03/02/2023 COVID19 Pending 12/04/2024 12/04/2024 12/04/2024 1 0:20 AM ASSEMBLYMAN OR WOMAN Assessment Noted Time PHQ-9 Depression Total Score: 11 08/01/2 022 10:21 AM CDT documented as of this encounter Care Teams Ic Designer Custom Relationship Specialty Start Date End Date Renzo Andres M.D. [address] [place] [address] [place] [phone] PCP - General Family Medicine 04/25/23 documented as of this encounter
--- OUTSIDE RECORDS SUMMARY | 2025-08-09 14:31 | XMS_ITS | Encounter Summary ---
Author Organization [facility] Address [address] [place] [address] Care Team Providers Care Automatic Steel Tie Adjuster Name Role Phone Renzo Andres M.D. Primary Care Provider Encounter Details Date Type Department Care Team (Late st Contact Info) Description 02/16/2005 Historical Ophthalmology RST OPH Fercho Jeronimo M.D. Social History Tobacco Use Types Packs/Day Years Used Date Smoking Tobacco: Never Assessed Comments Unknown Sex and Gender Information Value Date Recorded Sex Assigned at Female 12/26/2018 8:37 PM YARDER PUNCHER Legal Sex Female 2:43 PM YARDER PUNCHER Gender Identity Female 12/26/2018 8:37 PM YARDER PUNCHER Sexual Orientation Choose not to disclose 2020 [...] both eyes CDM Reports - EYEGEN Id: [id number] Status: Fnl documented in this encounter Plan of Treatment Upcoming Encounters Date Type Department Care Team (Late st Contact Info) Description 08/11/2025 8:00 AM CDT Office Visit Department of Palliative Care in [place], [place] [address] [place] [phone] Meghan Osorio M.D. [address] [place] [address] [phone] 08/11/2025 9:00 AM CDT Nurse Only Section of Infectious Diseases in [address] [phone] Jessica Rousseau M.B.B.S. [address] [place] [address] [phone] 08/11/2025 1:00 PM CDT Clinical Support Department of Palliative Care in [address] [phone] Uma Aly APRN, C.N.P., M.S.N. [address] [place] [address] [phone] 08/13/2025 10:00 AM CDT Lab Department of Laboratory Medicine and Pathology, [facility], in [place], [place] [address] [place] [address] [phone] Jessica Rousseau M.B.B.S. [address] [place] [address] [phone] 08/13/2025 10:30 AM CDT Office Visit Pedro [facility] for Transplantation and Clinical Regeneration in [place], [place] [address] [place] [address] [phone] Jessica Rousseau M.B.B.S. [address] [place] [phone] Nelli Parker Pharm.D., R.Ph. [address] [place] [address] [phone] 08/13/2025 11:00 AM CDT Nurse Only [facility] Transplantation and Clinical Regeneration in [place], [place] [address] [place] [phone] Jessica Rousseau M.B.B.S. [address] [place] [phone] 08/13/2025 11:30 AM CDT Office Visit [facility] Transplantation and Clinical Regeneration in [place], [place] [address] [place] [phone] Jessica Rousseau M.B.B.S. [address] [place] [phone] 08/13/2025 3:00 PM CDT Clinical Support Department of Palliative Care in [place], [place] [address] [place] [phone] Meghan Osorio M.D. [address] [place] [phone] Mary Garcia M.S.W., L.I.C.S.W. [address] [place] [address] [phone] 08/25/2025 8:00 AM CDT Telemedicine [facility] Transplantation and Clinical Regeneration in [place], [place] [address] [place] [address] [phone] Jessica Rousseau M.B.B.S. [address] [place] [phone] documented as of this encounter Visit Diagnoses Not on filedocumented in this encounter Additional Health Concerns Infection Onset Date Last Indicated Resolved Time COVID19 Pending 04/20/2020 04/20/2020 04/23/2020 2 :28 AM CDT COVID19 Pending 07/07/2020 07/07/2020 07/07/2020 7 :12 PM CDT COVID19 Pending 03/15/2021 03/15/2021 03/16/2021 1 1:39 AM CDT COVID19 01/07/2023 01/07/2023 01/27/2023 5:15 AM YARDER PUNCHER Protective Environment 03/02/2023 03/02/2023 COVID19 Pending 12/04/2024 12/04/2024 12/04/2024 1 0:20 AM YARDER PUNCHER documented as of this encounter Care Teams Automatic Steel Tie Adjuster Relationship Specialty Start Date End Date Renzo Andres M.D. [address] [place] [phone] PCP - General Family Medicine 04/25/23 documented as of this encounter
--- OUTSIDE RECORDS SUMMARY | 2025-08-09 14:31 | XMS_ITS | Encounter Summary ---
Author Organization [facility] Address [address] [place] [address] Care Team Providers Care Crystal Mounter Name Role Phone Renzo Andres M.D. Primary Care Provider Encounter Details Date Type Department Care Team (Late st Contact Info) Description 12/24/2002 Historical Ophthalmology RST OPH Fercho Jeronimo M.D. Social History Tobacco Use Types Packs/Day Years Used Date Smoking Tobacco: Never Assessed Comments Unknown Sex and Gender Information Value Date Recorded Sex Assigned at Female 12/26/2018 8:37 PM TURNER AND FORMER AUTOMATIC Legal Sex Female 2:43 PM TURNER AND FORMER AUTOMATIC Gender Identity Female 12/26/2018 8:37 PM TURNER AND FORMER AUTOMATIC Sexual Orientation Choose not to disclose 2020 [...] 1) given. CDM Reports - EYEGEN Id: [id number] Status: Fnl documented in this encounter Plan of Treatment Upcoming Encounters Date Type Department Care Team (Late st Contact Info) Description 08/11/2025 8:00 AM CDT Office Visit Department of Palliative Care in [place], [place] [address] [place] [phone] Meghan Osorio M.D. [address] [place] [phone] 08/11/2025 9:00 AM CDT Nurse Only Section of Infectious Diseases in [place], [place] [address] [place] [address] [phone] Jessica Rousseau M.B.B.S. [address] [place] [address] [phone] 08/11/2025 1:00 PM CDT Clinical Support Department of Palliative Care in [place], [place] [address] [place] [address] [phone] Uma Aly APRN, C.N.P., M.S.N. [address] [place] [phone] 08/13/2025 10:00 AM CDT Lab Department of Laboratory Medicine and Pathology, [facility] in [place], [place] [address] [place] [phone] Jessica Rousseau M.B.B.S. [address] [place] [address] [phone] 08/13/2025 10:30 AM CDT Office Visit [facility] for Transplantation and Clinical Regeneration in [place], [place] [address] [place] [address] [phone] Jessica Rousseau M.B.B.S. [address] [place] [address] [phone] Nelli Parker Pharm.D., R.Ph. [address] [place] [address] [phone] 08/13/2025 11:00 AM CDT Nurse Only [facility] Transplantation and Clinical Regeneration in [place], [place] [address] [place] [phone] Jessica Rousseau M.B.B.S. [address] [place] [phone] 08/13/2025 11:30 AM CDT Office Visit [facility] for Transplantation and Clinical Regeneration in [place], [place] [address] [place] [address] [phone] Jessica Rousseau M.B.B.S. [address] [place] [phone] 08/13/2025 3:00 PM CDT Clinical Support Department of Palliative Care in [place], [place] [address] [place] [address] [phone] Meghan Osorio M.D. [address] [place] [phone] Mary Garcia M.S.W., L.I.C.S.W. [address] [place] [address] [phone] 08/25/2025 8:00 AM CDT Telemedicine [facility] for Transplantation and Clinical Regeneration in [place], [place] [address] [place] [address] [phone] Jessica Rousseau M.B.B.S. [address] [place] [phone] documented as of this encounter Visit Diagnoses Not on filedocumented in this encounter Additional Health Concerns Infection Onset Date Last Indicated Resolved Time COVID19 Pending 04/20/2020 04/20/2020 04/23/2020 2 :28 AM CDT COVID19 Pending 07/07/2020 07/07/2020 07/07/2020 7 :12 PM CDT COVID19 Pending 03/15/2021 03/15/2021 03/16/2021 1 1:39 AM CDT COVID19 01/07/2023 01/07/2023 01/27/2023 5:15 AM TURNER AND FORMER AUTOMATIC Protective Environment 03/02/2023 03/02/2023 COVID19 Pending 12/04/2024 12/04/2024 12/04/2024 1 0:20 AM TURNER AND FORMER AUTOMATIC documented as of this encounter Care Teams Crystal Mounter Relationship Specialty Start Date End Date Renzo Andres M.D. [address] [place], [place] [address] [phone] PCP - General Family Medicine 04/25/23 documented as of this encounter
--- OUTSIDE RECORDS SUMMARY | 2025-08-09 14:31 | XMS_ITS | Encounter Summary ---
Author Organization [facility] Address [address] [place] [address] Care Team Providers Care Diagnostics Sales Developer Name Role Phone Renzo Andres M.D. Primary Care Provider Encounter Details Date Type Department Care Team (Late st Contact Info) Description 07/04/2006 Historical Ophthalmology RST OPH Fercho Jeronimo M.D. Social History Tobacco Use Types Packs/Day Years Used Date Smoking Tobacco: Never Assessed Comments Unknown Sex and Gender Information Value Date Recorded Sex Assigned at Female 12/26/2018 8:37 PM HOOF AND SHOE INSPECTOR Legal Sex Female 2:43 PM HOOF AND SHOE INSPECTOR Gender Identity Female 12/26/2018 8:37 PM HOOF AND SHOE INSPECTOR Sexual Orientation Choose not to disclose [...] both eyes. No eye complaints. Wearing glasses timekeeper. No diplopia. Would like to get contacts. [...] both eyes CDM Reports - EYEGEN Id: [id number] Status: Fnl documented in this encounter Plan of Treatment Upcoming Encounters Date Type Department Care Team (Late st Contact Info) Description 08/11/2025 8:00 AM CDT Office Visit Department of Palliative Care in [address] [phone] Meghan Osorio M.D. [address] [place] [address] [phone] 08/11/2025 9:00 AM CDT Nurse Only Section of Infectious Diseases in [address] [phone] Jessica Rousseau M.B.B.S. [address] [place] [address] [phone] 08/11/2025 1:00 PM CDT Clinical Support Department of Palliative Care in [address] [phone] Uma Aly APRN, C.N.P., M.S.N. [address] [place] [phone] 08/13/2025 10:00 AM CDT Lab Department of Laboratory Medicine and Pathology, [facility], in [place], [place] [address] [place] [phone] Jessica Rousseau M.B.B.S. [address] [place] [address] [phone] 08/13/2025 10:30 AM CDT Office Visit [facility] for Transplantation and Clinical Regeneration in [place], [place] [address] [place] [address] [phone] Jessica Rousseau M.B.B.S. [address] [place] [phone] Nelli Parker Pharm.D., R.Ph. [address] [place] [phone] 08/13/2025 11:00 AM CDT Nurse Only [facility] for Transplantation and Clinical Regeneration in [place], [place] [address] [place] [phone] Jessica Rousseau M.B.B.S. [address] [place] [phone] 08/13/2025 11:30 AM CDT Office Visit [facility] for Transplantation and Clinical Regeneration in [place], [place] [address] [place] [phone] Jessiac Rousseau M.B.B.S. [address] [place] [phone] 08/13/2025 3:00 PM CDT Clinical Support Department of Palliative Care in [place], [place] [address] [place] [phone] Meghan Osorio M.D. [address] [place] [phone] Mary Garcia M.S.W., L.I.C.S.W. [address] [place] [phone] 08/25/2025 8:00 AM CDT Telemedicine [facility] for Transplantation and Clinical Regeneration in [place], [place] [address] [place] [phone] Jessica Rousseau M.B.BKatlainaS. [address] [place] [phone] documented as of this encounter Visit Diagnoses Not on filedocumented in this encounter Additional Health Concerns Infection Onset Date Last Indicated Resolved Time COVID19 Pending 04/20/2020 04/20/2020 04/23/2020 2 :28 AM CDT COVID19 Pending 07/07/2020 07/07/2020 07/07/2020 7 :12 PM CDT COVID19 Pending 03/15/2021 03/15/2021 03/16/2021 1 1:39 AM CDT COVID19 01/07/2023 01/07/2023 01/27/2023 5:15 AM HOOF AND SHOE INSPECTOR Protective Environment 03/02/2023 03/02/2023 COVID19 Pending 12/04/2024 12/04/2024 12/04/2024 1 0:20 AM HOOF AND SHOE INSPECTOR documented as of this encounter Care Teams Diagnostics Sales Developer Relationship Specialty Start Date End Date Renzo Andres M.D. [address] [place] [phone] PCP - General Family Medicine 04/25/23 documented as of this encounter
--- OUTSIDE RECORDS SUMMARY | 2025-08-09 14:31 | XMS_ITS | Encounter Summary ---
Author Organization [facility] Address [address] [place] [address] Care Team Providers Care Medical Staff Credentialing Coordinator Name Role Phone Renzo Andres M.D. Primary Care Provider Encounter Details Date Type Department Care Team (Late st Contact Info) Description 06/13/2025 Orders Only [facility], Ninth Floor [address] [place] [phone] Analia Carter, COLLATERAL CLERK, C.N.P. 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 No 06/24/2025 Depression Answer Date Recor ded PHQ-9 Total Score (max 27) 2 12/10 Housing Stability Answer Date Recorded What is your living situation today? I have a [facility] place to live 06/24/2025 Education Answer Date Recorded What is the highest level of school you have completed or the highest degree you have received? Some college, no degree 04/24/2019 Comments No Sex and Gender Information Value Date Recorded Sex Assigned at Female 12/26/2018 8:37 PM SPIN INSTRUCTOR Legal Sex Female 2:43 PM SPIN INSTRUCTOR Gender Identity Female 12/26/2018 8:37 PM SPIN INSTRUCTOR Sexual Orientation Choose not to disclose 2020 3:46 PM CDT documented as of this encounter Plan of Treatment Upcoming Encounters Date Type Department Care Team (Late st Contact Info) Description 08/11/2025 8:00 AM CDT Office Visit Department of Palliative Care in [place], [place] [address] [place] [phone] Meghan Osorio M.D. [address] [place] [phone] 08/11/2025 9:00 AM CDT Nurse Only Section of Infectious Diseases in [place], [place] [address] [place] [phone] Jessica Rousseau M.B.B.S. [address] [place] [address] [phone] 08/11/2025 1:00 PM CDT Clinical Support Department of Palliative Care in [place], [place] [address] [place] [address] [phone] Uma Aly APRN, C.N.P., M.S.N. [address] [place] [phone] 08/13/2025 10:00 AM CDT Lab Department of Laboratory Medicine and Pathology, [facility] in [place], [place] [address] [place] [phone] Jessica Rousseau M.B.B.S. [address] [place] [phone] 08/13/2025 10:30 AM CDT [facility] in [place], [place] [address] [place] [phone] Jessica Rousseau M.B.B.S. [address] [place] [phone] Nelli Parker, Pharm.D., R.Ph. [address] [place] [address] [phone] 08/13/2025 11:00 AM CDT Nurse Only [facility] in [place], [place] [address] [place] [phone] Jessica Rousseau M.B.B.S. [address] [place] [phone] 08/13/2025 11:30 AM CDT Office Visit [facility] Transplantation and Clinical Regeneration in [place], [place] [address] [place] [phone] Jessica Rousseau M.B.B.S. [address] [place] [phone] 08/13/2025 3:00 PM CDT Clinical Support Department of Palliative Care in [place], [place] [address] [place] [phone] Meghan Osorio M.D. [address] [place] [address] [phone] Mary Garcia M.S.W., L.I.C.S.W. [address] [place] [address] [phone] 08/25/2025 8:00 AM CDT Telemedicine [facility] Transplantation and Clinical Regeneration in [place], [place] [address] [place] [phone] Jessica Rousseau M.B.B.S. 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 [address] [place] [address] [place] [phone] PCP - General Family Medicine 04/25/23 documented as of this encounter
--- OUTSIDE RECORDS SUMMARY | 2025-08-09 14:31 | XMS_ITS | Encounter Summary ---
Author Organization [facility] Address [address] [place] [address] Care Team Providers Care Broadcast Operations Director Name Role Phone Renzo Andres M.D. Primary Care Provider Encounter Details Date Type Department Care Team (Late st Contact Info) Description 08/08/2025 Orders Only [facility], [facility], Ninth Floor [address] [place] [phone] Oli Lynch P.A.-C. [address] [place] [phone] Social History Tobacco Use Types Packs/Day Years [...] things needed for daily living? No 07/02/2025 [facility] Utilities Answer Date Recorded In the past 12 months has [employer] electric, gas, oil, or water company threatened [...] Sex Assigned at Female 12/26/2018 8:37 PM LANDSCAPE AND YARDWORK LABORER Legal Sex Female 2:43 PM LANDSCAPE AND YARDWORK LABORER Gender Identity Female 12/26/2018 8:37 PM LANDSCAPE AND YARDWORK LABORER Sexual Orientation Choose not to disclose 2020 3:46 PM CDT documented as of this encounter Plan of Treatment Upcoming Encounters Date Type Department Care Team (Late st Contact Info) Description 08/11/2025 8:00 AM CDT Office Visit Department of Palliative Care in [place], [place] 200 [place] [address] Meghan Osorio M.D. 200 [place] [phone] 08/11/2025 9:00 AM CDT Nurse Only Section of Infectious Diseases in [place], [place] [address] [place] [phone] Jessica Rousseau M.B.B.S. [address] [place] [phone] 08/11/2025 1:00 PM CDT Clinical Support Department of Palliative Care in [place], [place] [address] [place] [address] [phone] Uma Aly APRN, C.N.P., M.S.N. [address] [place] [phone] 08/13/2025 10:00 AM CDT Lab Department of Laboratory Medicine and Pathology, [facility], in [place], [place] [address] [place] [phone] Jessica Rousseau M.B.B.S. [address] [place] [phone] 08/13/2025 10:30 AM CDT Office Visit [facility] Clinical Regeneration in [place], [place] [address] [place] [phone] Jessica Rousseau M.B.B.S. [address] [place] [phone] Nelli Parker, Pharm.D., R.Ph. [address] [place] [address] [phone] 08/13/2025 11:00 AM CDT Nurse Only [facility] in [place], [place] [address] [place] [phone] Jessica Rousseau M.B.B.S. [address] [place] [phone] 08/13/2025 11:30 AM CDT Office Visit [facility] Transplantation and Clinical Regeneration in [place], [place] [address] [place] [phone] Jessica Rousseau M.B.B.S. [address] [place] [phone] 08/13/2025 3:00 PM CDT Clinical Support Department of Palliative Care in [place], [place] [address] [place] [phone] Meghan Osorio M.D. [address] [place] [phone] Mary Garcia M.SLavern., L.I.C.S.W. [address] [place] [phone] 08/25/2025 8:00 AM CDT Telemedicine [facility] Transplantation and Clinical Regeneration in [place], [place] [address] [place] [phone] Jessica Rousseau M.B.B.S. [address] [place] [phone] documented as of this encounter Visit Diagnoses Not on filedocumented in this encounter Additional Health Concerns Infection Onset Date Last Indicated Resolved Time Protective Environment 03/02/2023 03/02/2023 Assessment Noted Time PHQ-9 Depression Total Score: 12 025 9:42 AM CDT documented as of this encounter Care Teams Broadcast Operations Director Relationship Specialty Start Date End Date Renzo Andres M.D. [address] [place] [address] [place] [phone] PCP - General Family Medicine 04/25/23 documented as of this encounter
--- OUTSIDE RECORDS SUMMARY | 2025-08-09 14:31 | XMS_ITS | Encounter Summary ---
Author Organization [facility] Address [address] [place] [address] Care Team Providers Care Chocolate Dipper Name Role Phone Renzo Andres M.D. 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 [address] [place] [address] Phone: tel: fax: [facility] Referral ID Status Reason Start Date Expiration Date V isits Requested Visits Authorized [id number] Authorized 06/17/2025 12/17/2026 1 1 Reason for Visit * Reason Onset Date Comments Symptom Assessment 06/17/2025 Encounter Details Date Type Department Care Team (Latest Contact Info) Description 06/17/2025 [facility] in [place], [place] [address] [place] [phone] Jeanna Victor Symptom Assessment Social History Tobacco [...] for daily living? No 07/02/2025 [facility] Utilities Answer Date Recorded In the past 12 months has e [employer], gas, oil, or water [place] threatened to shut off services in your [...] Sex Assigned at Female 12/26/2018 8:37 PM PSYCHIC READER Legal Sex Female 2:43 PM PSYCHIC READER Gender Identity Female 12/26/2018 8:37 PM PSYCHIC READER Sexual Orientation Choose not to disclose 2020 [...] Office Visit Department of Palliative Care in [place], [place] [address] [place] [address] Meghan Osorio M.D. [address] [place] [address] 08/11/2025 9:00 AM CDT Nurse Only Section of Infectious Diseases in [place], [place] [address] [place] [phone] Jessica Rousseau M.B.B.S. [address] [place] [phone] 08/11/2025 1:00 PM CDT Clinical Support Department of Palliative Care in [place], [place] [address] [place] [phone] Uma Aly APRN, C.N.P., M.S.N. [address] [place] [phone] 08/13/2025 10:00 AM CDT Lab Department of Laboratory Medicine and Pathology, [facility], in [place], [place] [address] [place] [phone] Jessica Rousseau M.B.B.S. [address] [place] [phone] 08/13/2025 10:30 AM CDT [facility] in [place], [place] [address] [place] [phone] Jessica Rousseau M.B.B.S. [address] [place] [phone] Nelli Parker, Pharm.D., R.Ph. [address] [place] [phone] 08/13/2025 11:00 AM CDT Nurse [facility] in [place], [place] [address] [place] [address] Jessica Rousseau M.B.B.S. [address] [place] [phone] 08/13/2025 11:30 AM CDT Office Visit [facility] Transplantation and Clinical Regeneration in [place], [place] [address] [place] [phone] Jessica Rousseau M.B.B.S. [address] [place] [phone] 08/13/2025 3:00 PM CDT Clinical Support Department of Palliative Care in [place], [place] [address] [place] [phone] Meghan Osorio M.D. [address] [place] [phone] Mary Garcia M.S.W., L.I.C.S.W. [address] [place] [phone] 08/25/2025 8:00 AM CDT Telemedicine [facility] Transplantation and Clinical Regeneration in [place], [place] [address] [place] [phone] Jessica Rousseau M.B.B.S. [address] [place] [phone] Scheduled Referrals Name Type Priority Associated Diagnoses [...] Total Score: 2 12/10/19 25 2:46 PM PSYCHIC READER documented as of this encounter Care Teams Chocolate Dipper Relationship Specialty Start Date End Date Renzo Andres M.D. [address] [place] [address] [place] [phone] PCP - General Family Medicine 04/25/23 documented as of this encounter
--- OUTSIDE RECORDS SUMMARY | 2025-08-09 14:31 | XMS_ITS | Encounter Summary ---
Author Organization [facility] Address [address] [place] [address] Care Team Providers Care Restaurant Shift Leader Name Role Phone Renzo Andres M.D. 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 [address] [place] [address] Phone: tel: fax: [facility] Referral ID Status Reason Start Date Expiration Date Visits Re quested Visits Authorized [id number] Closed 06/05/2025 09/05/2026 1 1 Reason for Visit * Reason Onset Date Comments Phone Contact 06/05/2025 CT Results Encounter Details Date Type Department Care Team (Latest Contact Info) Description 06/05/2025 Clinical Communication Pedro [facility] [place] for Transplantation and Clinical Regeneration in [place], [place] [address] [place] [address] Jessica Rousseau M.B.B.S. [address] [place] [address] Phone Contact (CT Results) Social History Tobacco [...] needed for daily living? No 07/02/2025 [facility] Utilities Answer Date Recorded In the past 12 months has [facility] electric, gas, oil, or water company threatened to shut off services in your home? No 07/02/2025 Depression Answer Date Recor ded PHQ-9 Total Score (max 27) 2 12/10 Housing Stability Answer Date Recorded What is your living situation today? I have a [facility] place to live 07/02/2025 Education Answer Date Recorded What is the highest level of school you have completed or the highest degree you have received? Some college, no degree 04/24/2019 Comments No Sex and Gender Information Value Date Recorded Sex Assigned at Female 12/26/2018 8:37 PM REPOSSESSION AGENT Legal Sex Female 2:43 PM REPOSSESSION AGENT Gender Identity Female 12/26/2018 8:37 PM REPOSSESSION AGENT Sexual Orientation Choose not to disclose 2020 3:46 PM CDT documented as of this encounter Plan of Treatment Upcoming Encounters Date Type Department Care Team (Late st Contact Info) Description 08/11/2025 8:00 AM CDT Office Visit Department of Palliative Care in [place], [place] [address] [place] [phone] Meghan Osorio M.D. [address] [place] [phone] 08/11/2025 9:00 AM CDT Nurse Only Section of Infectious Diseases in [address] [phone] Jessica Rousseau M.B.B.S. [address] [place] [phone] 08/11/2025 1:00 PM CDT Clinical Support Department of Palliative Care in [address] [phone] Uma Aly APRN, C.N.P., M.S.N. [address] [place] [phone] 08/13/2025 10:00 AM CDT Lab Department of Laboratory Medicine and Pathology, [facility], in [place], [place] [address] [place] [phone] Jessica Rousseua M.B.B.S. [address] [place] [phone] 08/13/2025 10:30 AM CDT Office Visit [facility] for Transplantation and Clinical Regeneration in [place], [place] [address] [place] [phone] Jessica Rousseau M.B.B.S. [address] [place] [phone] Nelli Parker Pharm.D., R.Ph. [address] [place] [phone] 08/13/2025 11:00 AM CDT Nurse Only [facility] Transplantation and Clinical Regeneration in [place], [place] [address] [place] [phone] Jessica Rousseau M.B.B.S. [address] [place] [phone] 08/13/2025 11:30 AM CDT Office Visit [facility] for Transplantation and Clinical Regeneration in [place], [place] [address] [place] [phone] Jessica Rousseau M.B.B.S. [address] [place] [phone] 08/13/2025 3:00 PM CDT Clinical Support Department of Palliative Care in [place], [place] [address] [place] [phone] Meghan Osorio M.D. [address] [place] [phone] Mary Garcia M.SLavern., L.I.C.S.W. [address] [place] [phone] 08/25/2025 8:00 AM CDT Telemedicine [facility] for Transplantation and Clinical Regeneration in [place], [place] [address] [place] [address] Jessica Rousseau M.B.B.S. [address] [place] [phone] documented as of this encounter Visit Diagnoses Diagnosis Leukemia Myeloid Chronic BCR/ABL Positive Not Having Achieved Remission (HCC)- Primary Transplant Stem Cell (HCC) documented in this encounter Additional Health Concerns Infection Onset Date Last Indicated Resolved Time Protective Environment 03/02/2023 03/02/2023 Assessment Noted Time PHQ-9 Depression Total Score: 2 12/10/19 25 2:46 PM REPOSSESSION AGENT documented as of this encounter Care Teams Restaurant Shift Leader Relationship Specialty Start Date End Date Renzo Andres M.D. [address] [place] [phone] PCP - General Family Medicine 04/25/23 documented as of this encounter
--- OUTSIDE RECORDS SUMMARY | 2025-08-09 14:31 | XMS_ITS | Encounter Summary ---
Author Organization [facility] Address [address] [place] [address] Care Team Providers Care Supervisor Sound Technician Name Role Phone Renzo Andres M.D. Primary Care Provider Encounter Details Date Type Department Care Team (Late st Contact Info) Description 05/06/2009 Historical Ophthalmology [facility] Reginald Peter O.D. [address] [place] [phone] Social History Tobacco Use Types Packs/Day Years Used Date Smoking Tobacco: Never Assessed Comments Unknown Sex and Gender Information Value Date Recorded Sex Assigned at Female 12/26/2018 8:37 PM SPECIAL SERVICES AGENT Legal Sex Female 2:43 PM SPECIAL SERVICES AGENT Gender Identity Female 12/26/2018 8:37 PM SPECIAL SERVICES AGENT Sexual Orientation Choose not to disclose [...] (hyperopic astigmatism). CDM Reports - EYEGEN Id: [id number] Status: Fnl documented in this encounter Plan of Treatment Upcoming Encounters Date Type Department Care Team (Late st Contact Info) Description 08/11/2025 8:00 AM CDT Office Visit Department of Palliative Care in [address] [phone] Meghan Osorio M.D. [address] [place] [phone] 08/11/2025 9:00 AM CDT Nurse Only Section of Infectious Diseases in [place], [place] [address] [place] [phone] Jessica Rousseau M.Dayday.B.S. [address] [place] [phone] 08/11/2025 1:00 PM CDT Clinical Support Department of Palliative Care in [place], [place] [address] [place] [phone] Uma Aly APRN, C.N.P., M.S.N. [address] [place] [phone] 08/13/2025 10:00 AM CDT Lab Department of Laboratory Medicine and Pathology, [facility], in [place], [place] [address] [place] [phone] Jessica Rousseau M.B.B.S. [address] [place] [phone] 08/13/2025 10:30 AM CDT Office Visit [facility] Transplantation and Clinical Regeneration in [place], [place] [address] [place] [address] Jessica Rousseau M.B.B.S. [address] [place] [phone] Nelli Parker Pharm.D., R.Ph. [address] [place] [phone] 08/13/2025 11:00 AM CDT Nurse Only [facility] Transplantation and Clinical Regeneration in [place], [place] [address] [place] [phone] Jessica Rousseau M.B.B.S. [address] [place] [phone] 08/13/2025 11:30 AM CDT Office Visit [facility] Transplantation and Clinical Regeneration in [place], [place] [address] [place] [address] Jessica Rousseau M.B.B.S. [address] [place] [phone] 08/13/2025 3:00 PM CDT Clinical Support Department of Palliative Care in [place], [place] [address] [place] [address] Meghan Osorio M.D. [address] [place] [phone] Mary Garcia M.S.W., L.I.C.S.W. [address] [place] [phone] 08/25/2025 8:00 AM CDT Telemedicine Pedro [facility] for Transplantation and Clinical Regeneration in [place], [place] [address] [place] [address] Jessica Rousseau M.B.B.S. [address] [place] [phone] documented as of this encounter Visit Diagnoses Not on filedocumented in this encounter Additional Health Concerns Infection Onset Date Last Indicated Resolved Time COVID19 Pending 04/20/2020 04/20/2020 04/23/2020 2 :28 AM CDT COVID19 Pending 07/07/2020 07/07/2020 07/07/2020 7 :12 PM CDT COVID19 Pending 03/15/2021 03/15/2021 03/16/2021 1 1:39 AM CDT COVID19 01/07/2023 01/07/2023 01/27/2023 5:15 AM SPECIAL SERVICES AGENT Protective Environment 03/02/2023 03/02/2023 COVID19 Pending 12/04/2024 12/04/2024 12/04/2024 1 0:20 AM SPECIAL SERVICES AGENT documented as of this encounter Care Teams Supervisor Sound Technician Relationship Specialty Start Date End Date Renzo Andres M.D. [address] [place] [phone] PCP - General Family Medicine 04/25/23 documented as of this encounter
--- OUTSIDE RECORDS SUMMARY | 2025-08-09 14:32 | XMS_ITS | Encounter Summary ---
Author Organization [facility] Address [address] [place] [address] Care Team Providers Care Insurance Loss Control Surveyor Name Role Phone Renzo Andres M.D. Primary Care Provider Encounter Details Date Type Department Care Team (Latest Contact Info) Description 07/30/2025 Clinical Communication Division of Gastroenterology in [place], [place] [address] [place] [phone] Derrick Cruz Jr., M.D., M.S. [address] [place] [address] Social History Tobacco Use Types Packs/Day Years [...] living? No 07/02/2025 [facility] Utilities Answer Date Recorded In the past 12 months has e electric, gas, oil, or water company threatened to shut off services in your home? No 07/02/2025 Depression Answer Date Recor ded PHQ-9 Total Score (max 27) 12 07/08 Housing Stability Answer Date Recorded What is your living situation today? I have a [facility] place to live 07/02/2025 Education Answer Date Recorded What is the highest level of school you have completed or the highest degree you have received? Some college, no degree 04/24/2019 Comments No Sex and Gender Information Value Date Recorded Sex Assigned at Female 12/26/2018 8:37 PM COLLECTION SYSTEMS CONSULTANT Legal Sex Female 2:43 PM COLLECTION SYSTEMS CONSULTANT Gender Identity Female 12/26/2018 8:37 PM COLLECTION SYSTEMS CONSULTANT Sexual Orientation Choose not to disclose 2020 3:46 PM CDT documented as of this encounter Plan of Treatment Upcoming Encounters Date Type Department Care Team (Late st Contact Info) Description 08/11/2025 8:00 AM CDT Office Visit Department of Palliative Care in [place], [place] 200 [place] [address] Meghan Osorio M.D. 200 [place] [address] 08/11/2025 9:00 AM CDT Nurse Only Section of Infectious Diseases in [place], [place] [address] [place] [phone] Jessica Rousseau M.B.B.S. [address] [place] [phone] 08/11/2025 1:00 PM CDT Clinical Support Department of Palliative Care in [place], [place] [address] [place] [phone] Uma Aly APRN, JamariNKatalinaP., M.S.N. [address] [place] [phone] 08/13/2025 10:00 AM CDT Lab Department of Laboratory Medicine and Pathology, [facility], in [place], [place] [address] [place] [phone] Jessica Rousseau M.B.B.S. [address] [place] [phone] 08/13/2025 10:30 AM CDT Office Visit [facility] for Transplantation and Clinical Regeneration in [place], [place] [address] [place] [phone] Jessica Rousseau M.B.B.S. [address] [place] [phone] Nelli Parker, Pharm.D., R.Ph. [address] [place] [phone] 08/13/2025 11:00 AM CDT Nurse Only [facility] in [place], [place] [address] [place] [phone] Jessica Rousseau M.B.B.S. [address] [place] [phone] 08/13/2025 11:30 AM CDT Office Visit [facility] Transplantation and Clinical Regeneration in [place], [place] [address] [place] [phone] Jessica Rousseau M.B.B.S. [address] [place] [phone] 08/13/2025 3:00 PM CDT Clinical Support Department of Palliative Care in [place], [place] [address] [place] [phone] Meghan Osorio M.D. [address] [place] [phone] Mary Garcia M.SLavern., L.I.C.S.W. [address] [place] [phone] 08/25/2025 8:00 AM CDT Telemedicine [facility] Transplantation and Clinical Regeneration in [place], [place] [address] [place] [phone] Jessica Rousseau M.B.B.S. [address] [place] [phone] documented as of this encounter Visit Diagnoses Not on filedocumented in this encounter Additional Health Concerns Infection Onset Date Last Indicated Resolved Time Protective Environment 03/02/2023 03/02/2023 Assessment Noted Time PHQ-9 Depression Total Score: 12 07/08/ 025 9:42 AM CDT documented as of this encounter Care Teams Insurance Loss Control Surveyor Relationship Specialty Start Date End Date Renzo Andres M.D. [address] [place] [phone] PCP - General Family Medicine 04/25/23 documented as of this encounter
--- OUTSIDE RECORDS SUMMARY | 2025-08-09 14:32 | XMS_ITS | Encounter Summary ---
Author Organization [facility] Address [address] [place] [address] Care Team Providers Care Security Rover Name Role Phone Renzo Andres M.D. Primary Care Provider [phone] Encounter Details Date Type Department Care Team (Late st Contact Info) Description 08/08/2025 Documentation [facility], [facility], Ninth Floor [address] [place] [address] Oli Lynch P.A.-C. [address] [place] [phone] Social History Tobacco Use Types Packs/Day Years [...] for daily living? No 07/02/2025 [facility] Utilities Answer Date Recorded In the past 12 months has [email or web address] electric, gas, oil, or water company threatened to shut off services in your home? No 07/02/2025 Depression Answer Date Recor ded PHQ-9 Total Score (max 27) 12 07/08 Housing Stability Answer Date Recorded What is your living situation today? I have a [facility] place to live 07/02/2025 Education Answer Date Recorded What is the highest level of school you have completed or the highest degree you have received? Some college, no degree 04/24/2019 Comments No Sex and Gender Information Value Date Recorded Sex Assigned at Female 12/26/2018 8:37 PM ENAMEL BUFFER Legal Sex Female 2:43 PM ENAMEL BUFFER Gender Identity Female 12/26/2018 8:37 PM E[employer]EL [employer]FFER Sexual Orientation Choose not to disclose 2020 3:46 PM CDT documented as of this encounter Progress Notes * Oli Lynch P.A.-C. - 08/08/2025 5:31 PM CDT Patient called and spoke with one of our nurses this evening, saying she had pain all over, especially on her legs and back. I phoned the patient at home, and she relayed the same to me. The pain has been consistent for about five days, a sort of burning pain. I note Ms Martinez has already been seen by Palliative Care for pain; Neuropathic pain in particular, and that she is already on buprenorphine (Butrans) patch 5 mcg per hour, and duloxetine 120 mg PO daily. She also has Dilaudid at hometo use PRN, but feels it doesn't help with this kind of pain. Ms Martinez just saw Arlen NORTON, on [facility] three days ago, and these issue were discussed. The patient has no fever or leukocytosis at that meeting, but had chills so blood cultures were drawn, which remain NGTD. This is a complex presentation. Listening to Ms Martinez, I could not help but feel this sounds a lot like fibromyalgia, and perhaps we should consider a workup for that in the future. She will return to [facility] on 08/13/25, so this can be explored at that visit. In the interim, I told her it is OK forher to take some Tylenol 500 mg PO now, and up to three times daily PRN. She also has her Dilaudid to use PRN, but discussed this is not ideal to take for a long-term pain syndrome. I also reassured Mr Martinez that her blood cultures here are NGTD. I reiterated a admonishment she had heard many times before, to report to her local ED should she develop fever, N/V, diarrhea or her current pain becomes worse. She chose to try Tylenol, then go to the ED tomorrow if the pain is worse. I told her she could always phone us again if need be. She agreed to this. Win Lynch PA-C [id number] documented in this encounter Plan of Treatment Upcoming Encounters Date Type Department Care Team (Late st Contact Info) Description 08/11/2025 8:00 AM CDT Office Visit Department of Palliative Care in [place], [place] [address] [place] [phone] Meghan Osorio M.D. [address] [place] [address] 08/11/2025 9:00 AM CDT Nurse Only Section of Infectious Diseases in [place], [place] [address] [place] [phone] Jessica Rousseau M.B.B.S. [address] [place] [phone] 08/11/2025 1:00 PM CDT Clinical Support Department of Palliative Care in [place], [place] [address] [place] [phone] Uma Aly APRN, JamariNKatalinaP., M.S.N. [address] [place] [phone] 08/13/2025 10:00 AM CDT Lab Department of Laboratory Medicine and Pathology, [facility], in [place], [place] [address] [place] [phone] Jessica Rousseau M.B.B.S. [address] [place] [phone] 08/13/2025 10:30 AM CDT Office Visit [facility] in [place], [place] [address] [place] [phone] Jessica Rousseau M.B.B.S. [address] [place] [phone] Nelli Parker, Pharm.D., R.Ph. [address] [place] [phone] 08/13/2025 11:00 AM CDT [facility] in [place], [place] [address] [place] [phone] Jessica Rousseau M.B.B.S. [address] [place] [phone] 08/13/2025 11:30 AM CDT Office Visit [facility] Trans[facility] and Clinical Regeneration in [place], [place] [address] [place] [address] Jessica Rousseau M.B.B.S. [address] [place] [phone] 08/13/2025 3:00 PM CDT Clinical Support Department of Palliative Care in [place], [place] [address] [place] [phone] Meghan Osorio M.D. [address] [place] [phone] Mary Garcia M.SLavern., L.I.C.S.W. [address] [place] [phone] 08/25/2025 8:00 AM CDT Telemedicine [facility] Clinical [facility] in [place], [place] [address] [place] [phone] Jessica Rousseau M.B.B.S. [address] [place] [phone] documented as of this encounter Visit Diagnoses Not on filedocumented in this encounter Additional Health Concerns Infection Onset Date Last Indicated Resolved Time Protective Environment 03/02/2023 03/02/2023 Assessment Noted Time PHQ-9 Depression Total Score: 12 025 9:42 AM CDT documented as of this encounter Care Teams Security Rover Relationship Specialty Start Date End Date Renzo Andres M.D. [address] [place] [phone] PCP - General Family Medicine 04/25/23 documented as of this encounter
--- OUTSIDE RECORDS SUMMARY | 2025-08-09 14:32 | XMS_ITS | Encounter Summary ---
Author Organization [facility] Address [address] [place] [address] Care Team Providers Care Supervisor [employer]acing Name Role Phone Renzo Andres M.D. Primary Care Provider Reason for Visit * Reason Onset Date Comments Phone Contact 07/31/2025 New Symptoms Encounter Details Date Type Department Care Team (Latest Contact Info) Description 07/31/2025 Clinical [facility] [place], [place] [address] [place] [address] Jessica Rousseau M.B.B.S. [address] [place] [phone] Phone Contact (New Symptoms) Social History Tobacco Use Types Packs/Day Years [...] a [facility] place to live 07/02/2025 Education Answer Date Recorded What is the highest level of school you have completed or the highest degree you have received? Some college, no degree 04/24/2019 Comments No Sex and Gender Information Value Date Recorded Sex Assigned at Female 12/26/2018 8:37 PM WALLBOARD WORKER Legal Sex Female 2:43 PM WALLBOARD WORKER Gender Identity Female 12/26/2018 8:37 PM WALLBOARD WORKER Sexual Orientation Choose not to disclose 2020 3:46 PM CDT documented as of this encounter Plan of Treatment Upcoming Encounters Date Type Department Care Team (Late st Contact Info) Description 08/11/2025 8:00 AM CDT Office Visit Department of Palliative Care in [place], [place] [address] [place] [address] Meghan Osorio M.D. [address] [place] [address] 08/11/2025 9:00 AM CDT Nurse Only Section of Infectious Diseases in [place], [place] [address] [place] [address] Jessica Rousseau M.B.B.S. [address] [place] [phone] 08/11/2025 1:00 PM CDT Clinical Support Department of Palliative Care in [place], [place] [address] [place] [address] Uma Aly APRN, C.N.P., M.S.N. [address] [place] [phone] 08/13/2025 10:00 AM CDT Lab Department of Laboratory Medicine and Pathology, [facility] in [place], [place] [address] [place] [phone] Jessica Rousseau M.B.B.S. [address] [place] [phone] 08/13/2025 10:30 AM CDT Office Visit Pedro sanchez [facility] for Transplantation and Clinical Regeneration in [place], [place] [address] [place] [phone] Jessica Rousseau M.B.B.S. [address] [place] [phone] Nelli Parker, Pharm.D., R.Ph. [address] [place] [phone] 08/13/2025 11:00 AM CDT Nurse Only Pedro Aravind sanchez [facility] in [place], [place] [address] [place] [address] Jessica Rousseau M.B.B.S. [address] [place] [phone] 08/13/2025 11:30 AM CDT Office Visit [facility] Transplantation and Clinical Regeneration in [place], [place] [address] [place] [phone] Jessica Rousseau M.B.B.S. [address] [place] [phone] 08/13/2025 3:00 PM CDT Clinical Support Department of Palliative Care in [place], [place] [address] [place] [phone] Meghan Osorio M.D. [address] [place] [phone] Mary Garcia M.S.W., L.I.C.S.W. [address] [place] [phone] 08/25/2025 8:00 AM CDT Telemedicine [facility] Transplantation and Clinical Regeneration in [place], [place] [address] [place] [phone] Jessica Rousseau M.B.B.S. [address] [place] [phone] documented as of this encounter Visit Diagnoses Not on filedocumented in this encounter Additional Health Concerns Infection Onset Date Last Indicated Resolved Time Protective Environment 03/02/2023 03/02/2023 Assessment Noted Time PHQ-9 Depression Total Score: 12 025 9:42 AM CDT documented as of this encounter Care Teams Supervisor [employer] Pl[employer] Relationship Specialty Start Date End Date Renzo Andres M.D. [address] [place] [address] [place] [phone] PCP - General Family Medicine 04/25/23 documented as of this encounter
--- OUTSIDE RECORDS SUMMARY | 2025-08-09 14:32 | XMS_ITS | Encounter Summary ---
Author Organization [facility] Address [address] [place] [address] Care Team Providers Care Patent Lawyer Name Role Phone Renzo Andres M.D. Primary Care Provider [phone] Reason for Referral * Outpatient (Routine) - Authorized Specialty Diagnoses / Procedures Referred By Contac t Referred To Contact Pharmacy Diagnoses Transplant Stem Cell (HCC) Bone Marrow Transplant Status (HCC) Arlen James APRN, C.N.P., D.N.P. [address] [place] [address] Phone: tel: fax: [facility] Referral ID Status Reason Start Date Expiration Date V isits Requested Visits Authorized [id number] Authorized 07/22/2025 01/21/2027 1 1 Scheduling Instructions Please schedule with pharmacist for 30 minutes. Patient type: Allo Over 100 Visit Type: Return Scheduling Preferences Option 1: MD/RN no joint visit Option 2: ANUPAM/RN joint visit Other Scheduling Instructions: Primary MD: Soham BERGER Team: Rst Bmt Team [place] Please schedule follow up around 08/05 with Soham/RN if available. ANUPAM/RN is okay too. Thanks * Transplant (Routine) - Closed Specialty Diagnoses / Procedures Referred By Contac t Referred To Contact Transplant Diagnoses Transplant Stem Cell (HCC) Bone Marrow Transplant Status (HCC) Arlen James APRN C.N.PKatalina, D.N.P. [address] [place] [phone] Phone: tel: fax: [facility] Referral ID Status Reason Start Date Expiration Date Visits Re quested Visits Authorized [id number] Closed 07/22/2025 01/21/2027 1 1 Scheduling Instructions Please schedule with BMT MD for 30 minutes. Patient type: Allo Over 100 Visit Type: Return Scheduling Preferences Option 1: MD/RN no joint visit Option 2: ANUPAM/RN joint visit Other Scheduling Instructions: Primary MD: Soham BERGER Team: Rst Bmt Team [place] Please schedule follow up around 08/05 with Soham/RN if available. ANUPAM/RN is okay too. Thanks * Transplant (Routine) - Closed Specialty Diagnoses / Procedures Referred By Contac t Referred To Contact Transplant Diagnoses Transplant Stem Cell (HCC) Bone Marrow Transplant Status (HCC) Arlen James APRN, C.N.P., D.N.P. [address] [place] [phone] Phone: tel: fax: [facility] Referral ID Status Reason Start Date Expiration Date Visits Re quested Visits Authorized [id number] Closed 07/22/2025 01/21/2027 1 1 Scheduling Instructions Please schedule with RNCC for 30 min Patient type: Allo Over 100 Visit Type: Return Scheduling Preferences Option 1: MD/RN no joint visit Option 2: ANUPAM/RN joint visit Other Scheduling Instructions: Primary MD: Soham BERGER Team: Rst Bmt Team [place] Please schedule follow up around 08/05 with Soham/RN if available. ANUPAM/RN is okay too. Thanks * Outpatient (Routine) - Authorized Specialty Diagnoses / Procedures Referred By Contheidy t Referred To Contact Pharmacy Diagnoses Transplant Stem Cell (HCC) Bone Marrow Transplant Status (HCC) Arlen James APRN C.N.PKatalina, D.N.P. [address] [place] [phone] Phone: tel: fax: [facility] Referral ID Status Reason Start Date Expiration Date V isits Requested Visits Authorized [id number] Authorized 07/22/2025 01/21/2027 1 1 Scheduling Instructions Please schedule with pharmacist for 30 minutes. Patient type: Allo Over 100 Visit Type: Return Scheduling Preferences Option 1: MD/RN no joint visit Option 2: ANUPAM/RN joint visit Other Scheduling Instructions: Primary MD: Soham BERGER Team: Rst Bmt Team [place] Please schedule 1 week follow up with Dr. Rousseau if available. ANUPAM/RN okay if not. Thanks * Transplant (Routine) - Closed Specialty Diagnoses / Procedures Referred By Estefania t Referred To Contact Transplant Diagnoses Transplant Stem Cell (HCC) Bone Marrow Transplant Status (HCC) Arlen James APRN C.N.P., D.N.P. [address] [place] [phone] Phone: tel: fax: [facility] Referral ID Status Reason Start Date Expiration Date Visits Re quested Visits Authorized [id number] Closed 07/22/2025 01/21/2027 1 1 Scheduling Instructions Please schedule with BMT MD for 30 minutes. Patient type: Allo Over 100 Visit Type: Return Scheduling Preferences Option 1: MD/RN no joint visit Option 2: ANUPAM/RN joint visit Other Scheduling Instructions: Primary MD: Soham BERGER Team: Rst Bmt Team [place] Please schedule 1 week follow up with Dr. Rousseau if available. ANUPAM/RN okay if not. Thanks * Transplant (Routine) - Closed Specialty Diagnoses / Procedures Referred By Estefania t Referred To Contact Transplant Diagnoses Transplant Stem Cell (HCC) Bone Marrow Transplant Status (HCC) Arlen James APRN, C.N.Delbert, D.N.P. [address] [place] [phone] Phone: tel: fax: [facility] Referral ID Status Reason Start Date Expiration Date Visits Re quested Visits Authorized [id number] Closed 07/22/2025 01/21/2027 1 1 Scheduling Instructions Please schedule with RNCC for 30 min Patient type: Allo Over 100 Visit Type: Return Scheduling Preferences Option 1: MD/RN no joint visit Option 2: ANUPAM/RN joint visit Other Scheduling Instructions: Primary MD: Soham RN Team: Rst Bmt Team [place] Please schedule 1 week follow up with Dr. Rousseau if available. ANUPAM/RN okay if not. Thanks Encounter Details Date Type Department Care Team (Late st Contact Info) Description 07/22/2025 Orders Only Pedro Fat[facility] for Transplantation and Clinical Regeneration in [place], [place] [address] [place] [phone] Arlen James APRN, C.N.PKatalina, D.N.P. [address] [place] [phone] Transplant Stem Cell (HCC) (Primary Dx); Bone Marrow Transplant Status (HCC) Social History Tobacco Use Types Packs/Day [...] things needed for daily living? No 07/02/2025 [facility] Utilities Answer Date Recorded In the past 12 months has th e electric, gas, oil, or water company threatened to shut off services in your home? No 07/02/2025 Depression Answer Date Recor ded PHQ-9 Total Score (max 27) 12 07/08 Housing Stability Answer Date Recorded What is your living situation today? I have a [facility] place to live 07/02/2025 Education Answer Date Recorded What is the highest level of school you have completed or the highest degree you have received? Some college, no degree 04/24/2019 Comments No Sex and Gender Information Value Date Recorded Sex Assigned at Female 12/26/2018 8:37 PM PHOTOGRAPHIC HAND DEVELOPER Legal Sex Female 2:43 PM PHOTOGRAPHIC HAND DEVELOPER Gender Identity Female 12/26/2018 8:37 PM PHOTOGRAPHIC HAND DEVELOPER Sexual Orientation Choose not to disclose 2020 3:46 PM CDT documented as of this encounter Plan of Treatment Upcoming Encounters Date Type Department Care Team (Late st Contact Info) Description 08/11/2025 8:00 AM CDT Office Visit Department of Palliative Care in [place], [place] [address] [place] [phone] Meghan Osorio M.D. [address] [place] [phone] 08/11/2025 9:00 AM CDT Nurse Only Section of Infectious Diseases in [place], [place] [address] [place] [phone] Jessica Rousseau M.B.B.S. [address] [place] [phone] 08/11/2025 1:00 PM CDT Clinical Support Department of Palliative Care in [place], [place] [address] [place] [phone] Uma Aly APRN, C.NLuigi., M.S.N. [address] [place] [phone] 08/13/2025 10:00 AM CDT Lab Department of Laboratory Medicine and Pathology, [facility], in [place], [place] [address] [place] [phone] Jessica Rousseau M.B.B.S. [address] [place] [phone] 08/13/2025 10:30 AM CDT [facility] [place], [place] [address] [place] [phone] Jessica Rousseau M.B.B.S. [address] [place] [phone] Nelli Parker, Pharm.D., R.Ph. [address] [place] [phone] 08/13/2025 11:00 AM CDT Nurse [facility] in [place], [place] [address] [place] [phone] Jessica Rousseau M.B.B.S. [address] [place] [phone] 08/13/2025 11:30 AM CDT Office Visit [facility] Transplantation and Clinical Regeneration in [place], [place] [address] [place] [phone] Jessica Rousseau M.B.B.S. [address] [place] [phone] 08/13/2025 3:00 PM CDT Clinical Support Department of Palliative Care in [place], [place] [address] [place] [phone] Meghan Osorio M.D. [address] [place] [phone] Mary Garcia M.S.W., L.I.C.S.W. [address] [place] [phone] 08/25/2025 8:00 AM CDT Telemedicine [facility] Transplantation and Clinical Regeneration in [place], [place] [address] [place] [phone] Jessica Rousseau M.B.B.S. [address] [place] [phone] Scheduled Referrals Name Type Priority Associated Diagnoses Order Schedule Transplant Bone marrow office visit (clinic) Outpatient Referral Routine Transplant Stem Cell (HCC) Bone Marrow Transplant Status (HCC) Expected: 07/29/2025 (Approximate), Expires: 10/21/2026 Transplant Bone marrow office visit (clinic) Outpatient Referral Routine Transplant Stem Cell (HCC) Bone Marrow Transplant Status (HCC) Expected: 07/29/2025 (Approximate), Expires: 10/21/2026 Pharmacy - Medication therapy management - transplant office visit (clinic) Outpatient Referral Routine Transplant Stem Cell (HCC) Bone Marrow Transplant Status (HCC) Expected: 07/29/2025 (Approximate), Expires: 10/21/2026 Transplant Bone marrow office visit (clinic) Outpatient Referral Routine Transplant Stem Cell (HCC) Bone Marrow Transplant Status (HCC) Expected: 08/05/2025 (Approximate), Expires: 10/21/2026 Transplant Bone marrow office visit (clinic) Outpatient Referral Routine Transplant Stem Cell (HCC) Bone Marrow Transplant Status (HCC) Expected: 08/05/2025 (Approximate), Expires: 10/21/2026 Pharmacy - Medication therapy management - transplant office visit (clinic) Outpatient Referral Routine Transplant Stem Cell (HCC) Bone Marrow Transplant Status (HCC) Expected: 08/05/2025 (Approximate), Expires: 10/21/2026 documented as of this encounter Results * EBV DNA Detect/Quant (08/05/2025 1:42 PM CDT) [facility] EBV DNA Detect/Quant, P Undetected Undetected IU/mL 08/06/2025 1:42 PM CDT [facility] Comment: Result in log IU/mL is Undetected. ----ADDITIONAL INFORMATION---- The quantification range of this assay is 35 to 100,000,000 IU/mL (1.54 log to 8.00 log IU/mL). Testing was performed using the lucrecia EBV test ([employer] Blood (Blood, Venous) 08/05/2025 1:42 PM CDT 08/05/2025 5:31 PM CDT us Arlen James APRN, C.N.P., D.N.P. LAB MICROBIOLO GY - BLOOD ORDERABLES Final Result [facility] SUPPORT [place] [address] [place] [address] [facility] [address] [place] [address] [place] [address] * LD (Lactate Dehydrogenase) (08/05/2025 1:42 PM CDT) [facility] LD 174 122 - 222 U/L 08/05/2025 2:44 PM CDT DTL Blood (Blood, Venous) 08/05/2025 1:42 PM CDT 08/05/2025 2:20 PM CDT Arlen James APRN, C.N.P., D.N.P. LAB BLOOD NON ADD-ON Final Result Performing Organization Address City/[facility]/ZIP Co de Phone Number [facility] [address] 200 [place] [address] * Sodium (08/05/2025 1:42 PM CDT) [facility] Sodium, S 139 135 - 145 mmol/L 08/05/2025 2:48 PM CDT DTL Blood (Blood, Venous) 08/05/2025 1:42 PM CDT 08/05/2025 2:15 PM CDT Arlen James APRN, C.N.P., D.N.P. LAB BLOOD ADD- ON Final Result Performing Organization Address City/[facility] Co de Phone Number [facility] [address] [place] [address] * Potassium (08/05/2025 1:42 PM CDT) [facility] Potassium, S 3.9 3.6 - 5.2 mmol/L 08/05/2025 2:48 PM CDT DTL Blood (Blood, Venous) 08/05/2025 1:42 PM CDT 08/05/2025 2:15 PM CDT Arlen James APRN, C.N.P., D.N.P. LAB BLOOD ADD- ON Final Result [facility] 200 [place] [address], [facility] [address] [place] [address] * Magnesium (08/05/2025 1:42 PM CDT) Magnesium, S 2.2 1.7 - 2.3 mg/dL 08/05/2025 2:48 PM CDT DTL Blood (Blood, Venous) 08/05/2025 1:42 PM CDT 08/05/2025 2:15 PM CDT Arlen James APRN, C.N.P., D.N.P. LAB BLOOD ADD- ON Final Result [facility] [address] [place] [address], [facility] [address] [place] [address] * (ABNORMAL) Glucose, Fasting (08/05/2025 1:42 PM CDT) Pathologist [facility] Glucose, P 159(H) 70 - 100 mg/dL 08/05/2025 3:56 PM CDT DTL Last Intake 14 hr 08/05/2025 2:15 PM CDT DTL Blood (Blood, Venous) 08/05/2025 1:42 PM CDT 08/05/2025 2:15 PM CDT Arlen James APRN, C.N.P., D.N.P. LAB BLOOD NON ADD-ON Final Result [facility] [address] [place] [address], [facility] [address] [place] [address] * Creatinine with Estimated GFR (08/05/2025 1:42 PM CDT) Creatinine 0.89 0.59 - 1.04 mg/dL 08/05/2025 2:48 PM CDT DTL Estimated GFR (eGFR) 86 >=60 mL/min/BSA 08/05/2025 2:48 PM CDT DTL Comment: Estimated GFR calculated using the 2020 CKD_EPI creatinine equation. Blood (Blood, Venous) 08/05/2025 1:42 PM CDT 08/05/2025 2:15 PM CDT us Arlen James APRN, C.N.P., D.N.P. LAB BLOOD ADD- ON Final Result [facility] [address] [place] [address], [facility] [address] [place] [address] * (ABNORMAL) CBC no call back, reflex T/S HGB <8 (08/05/2025 1:42 PM CDT) Hemoglobin 12.4 11.6 - 15.0 g/dL 08/05/2025 2:14 PM CDT DTL Hematocrit 37.5 35.5 - 44.9 % 08/05/2025 2:14 PM CDT DTL Erythrocytes 4.52 3.92 - 5.13 x10(12)/L 08/05/2025 2:14 PM CDT DTL MCV 83.0 78.2 - 97.9 fL 08/05/2025 2:14 PM CDT DTL RBC Distrib Width 14.0 12.2 - 16.1 % 08/05/2025 2:14 PM CDT DTL Platelet Count 207 157 - 371 x10(9)/L 08/05/2025 2:14 PM CDT DTL Leukocytes 4.2 3.4 - 9.6 x10(9)/L 08/05/2025 2:14 PM CDT DTL Neutrophils 3.02 1.56 - 6.45 x10(9)/L 08/05/2025 2:14 PM CDT DHPM Lymphocytes 0.81(L) 0.95 - 3.07 x10(9)/L 08/05/2025 2:14 PM CDT DTL Monocytes 0.25(L) 0.26 - 0.81 x10(9)/L 08/05/2025 2:14 PM CDT DTL Eosinophils 0.06 0.03 - 0.48 x10(9)/L 08/05/2025 2:14 PM CDT DTL Basophils <0.03 0.01 - 0.08 x10(9)/L 08/05/2025 2:14 PM CDT DTL Blood (Blood, Venous) 08/05/2025 1:42 PM CDT 08/05/2025 2:07 PM CDT Arlen James APRN, C.N.P., D.N.P. LAB BLOOD NON ADD-ON Final Result Performing Organization Address City/[facility]/ZIP Co de Phone Number [facility] 200 [place] [address], [facility] [address] [place] [address] * Calcium, Total (08/05/2025 1:42 PM CDT) Pathologist [facility] Calcium, Total, S 9.2 8.6 - 10.0 mg/dL 08/05/2025 2:48 PM CDT DTL Blood (Blood, Venous) 08/05/2025 1:42 PM CDT 08/05/2025 2:15 PM CDT Arlen James APRN, C.N.P., D.N.P. LAB BLOOD ADD- ON Final Result Performing Organization Address City/[facility]/ZIP Co de Phone Number [facility] [address] [place] [address], [facility] 200 [place] [address] * BUN (Blood Urea Nitrogen) (08/05/2025 1:42 PM CDT) BUN (Blood Urea Nitrogen), S 11 6 - 21 mg/dL 08/05/2025 2:48 PM CDT DTL Blood (Blood, Venous) 08/05/2025 1:42 PM CDT 08/05/2025 2:15 PM CDT Arlen James APRN, C.N.P., D.N.P. LAB BLOOD ADD- ON Final Result Performing Organization Address City/[facility]/ZIP Co de Phone Number [facility] [address] DTL [facility] 200 [place] [address] * Bilirubin, Total (08/05/2025 1:42 PM CDT) Bilirubin, Total, P 0.3 0.0 - 1.2 mg/dL 08/05/2025 2:06 PM CDT [facility] Blood (Blood, Venous) 08/05/2025 1:42 PM CDT 08/05/2025 1:48 PM CDT Arlen James APRN, C.N.P., D.N.P. LAB BLOOD ADD- ON Final Result Performing Organization Address [facility] Co de Phone Number [facility] 200 [place] [address], [facility] 200 [place] [address] * AST (Aspartate Aminotransferase) (08/05/2025 1:42 PM CDT) Aspartate Aminotransferase (AST), P 22 8 - 43 U/L 08/05/2025 2:06 PM CDT [facility] Blood (Blood, Venous) 08/05/2025 1:42 PM CDT 08/05/2025 1:48 PM CDT Arlen James APRN, C.N.P., D.N.P. LAB BLOOD ADD- ON Final Result Performing Organization Address City/[facility]/ZIP Co de Phone Number [facility] [address] [place] [address], [facility] METH [facility] [address] [place] [address] * ALT (Alanine Aminotransferase) (08/05/2025 1:42 PM CDT) Alanine Aminotransferase (ALT), S 36 7 - 45 U/L 08/05/2025 2:48 PM CDT DTL Blood (Blood, Venous) 08/05/2025 1:42 PM CDT 08/05/2025 2:15 PM CDT Arlen James APRN, C.N.P., D.N.P. LAB BLOOD ADD- ON Final Result [facility] [address] [place] [address], [facility] [address] [place] [address] * Alkaline Phosphatase (08/05/2025 1:42 PM CDT) Pathologist [facility] Alkaline Phosphatase, S 93 35 - 104 U/L 08/05/2025 2:48 PM CDT DTL Blood (Blood, Venous) 08/05/2025 1:42 PM CDT 08/05/2025 2:15 PM CDT Arlen James APRN, C.N.P., D.N.P. LAB BLOOD ADD- ON Final Result [facility] [address] [place] [address], [facility] [address] [place] [address] * Albumin (08/05/2025 1:42 PM CDT) Pathologist [facility] Albumin, S 4.5 3.5 - 5.0 g/dL 08/05/2025 2:48 PM CDT DTL Blood (Blood, Venous) 08/05/2025 1:42 PM CDT 08/05/2025 2:15 PM CDT Satnam Horne APRN.N.P., D.N.P. LAB BLOOD ADD- ON Final Result [facility] [address] [place] [address], [facility] DTL [facility] [address] [place] [address] * EBV DNA Detect/Quant (07/29/2025 9:47 AM CDT) [facility] EBV DNA Detect/Quant, P Undetected Undetected IU/mL 07/29/2025 8:17 PM CDT [facility] Comment: Result in log IU/mL is Undetected. ----ADDITIONAL INFORMATION---- The quantification range of this assay is 35 to 100,000,000 IU/mL (1.54 log to 8.00 log IU/mL). Testing was performed using the lucrecia EBV test ([employer] Blood (Blood, Venous) 07/29/2025 9:47 AM CDT 07/29/2025 12:05 PM CDT Satnam Horne APRN.N.P., D.N.P. LAB MICROBIOLO GY - BLOOD ORDERABLES Final Result Performing Organization Address City/[facility]/ZIP Co de Phone Number [facility] [address] [place] [address] [facility] [address] [place] [address] [place] [address] * LD (Lactate Dehydrogenase) (07/29/2025 9:47 AM CDT) [facility] LD 176 122 - 222 U/L 07/29/2025 11:02 AM CDT DTL Blood (Blood, Venous) 07/29/2025 9:47 AM CDT 07/29/2025 10:21 AM CDT Satnam Horne APRN.N.P., D.N.P. LAB BLOOD NON ADD-ON Final Result [facility] [address] [place] [address] * Sodium (07/29/2025 9:47 AM CDT) Sodium, S 140 135 - 145 mmol/L 07/29/2025 11:31 AM CDT DTL Blood (Blood, Venous) 07/29/2025 9:47 AM CDT 07/29/2025 9:53 AM CDT Arlen James APRN, Satnam.N.P., D.N.P. LAB BLOOD ADD- ON Final Result Performing Organization Address City/[facility]/ZIP Co de Phone Number [facility] 200 [place], [place] [phone] [place] [address] 200 [place] [address] * Potassium (07/29/2025 9:47 AM CDT) Potassium, S 4.3 3.6 - 5.2 mmol/L 07/29/2025 11:31 AM CDT DTL Blood (Blood, Venous) 07/29/2025 9:47 AM CDT 07/29/2025 9:53 AM CDT Arlen James APRN, C.N.P., D.N.P. LAB BLOOD ADD- ON Final Result [facility] [address] [place], [place] [phone] [place] [address] 200 [place] [address] * Magnesium (07/29/2025 9:47 AM CDT) Magnesium, S 2.2 1.7 - 2.3 mg/dL 07/29/2025 11:31 AM CDT DTL Blood (Blood, Venous) 07/29/2025 9:47 AM CDT 07/29/2025 9:53 AM CDT Arlen James APRN, C.N.P., D.N.P. LAB BLOOD ADD- ON Final Result Performing Organization Address City/[facility]/ZIP Co de Phone Number [facility] [address] [facility] 200 [place] [address] * Glucose, Fasting (07/29/2025 9:47 AM CDT) Glucose, P 76 70 - 100 mg/dL 07/29/2025 11:04 AM CDT DTL Last Intake 10 hr 07/29/2025 9:53 AM CDT DTL Blood (Blood, Venous) 07/29/2025 9:47 AM CDT 07/29/2025 9:53 AM CDT Arlen James APRN, C.N.P., D.N.P. LAB BLOOD NON ADD-ON Final Result Performing Organization Address City/[facility] Co de Phone Number [facility] 200 [place] [address], [facility] [place] [address] * Creatinine with Estimated GFR (07/29/2025 9:47 AM CDT) Creatinine 0.82 0.59 - 1.04 mg/dL 07/29/2025 11:31 AM CDT DTL Estimated GFR (eGFR) >90 >=60 mL/min/BSA 07/29/2025 11:31 AM CDT DTL Comment: Estimated GFR calculated using the 2020 CKD_EPI creatinine equation. Blood (Blood, Venous) 07/29/2025 9:47 AM CDT 07/29/2025 9:53 AM CDT Arlen James APRN, Satnam.NKatalinaP., D.N.P. LAB BLOOD ADD- ON Final Result [facility] [address] [place] [address], [facility] DTL [facility] [address] [place] [address] * CBC no call back, reflex T/S HGB <8 (07/29/2025 9:47 AM CDT) Pathologist [facility] Hemoglobin 12.3 11.6 - 15.0 g/dL 07/29/2025 10:37 AM CDT DTL Hematocrit 37.7 35.5 - 44.9 % 07/29/2025 10:37 AM CDT DTL Erythrocytes 4.47 3.92 - 5.13 x10(12)/L 07/29/2025 10:37 AM CDT DTL MCV 84.3 78.2 - 97.9 fL 07/29/2025 10:37 AM CDT DTL RBC Distrib Width 14.6 12.2 - 16.1 % 07/29/2025 10:37 AM CDT DTL Platelet Count 201 157 - 371 x10(9)/L 07/29/2025 10:37 AM CDT DTL Leukocytes 4.5 3.4 - 9.6 x10(9)/L 07/29/2025 10:37 AM CDT DTL Neutrophils 3.00 1.56 - 6.45 x10(9)/L 07/29/2025 10:37 AM CDT [facility] Lymphocytes 0.98 0.95 - 3.07 x10(9)/L 07/29/2025 10:37 AM CDT DTL Monocytes 0.40 0.26 - 0.81 x10(9)/L 07/29/2025 10:37 AM CDT DTL Eosinophils 0.04 0.03 - 0.48 x10(9)/L 07/29/2025 10:37 AM CDT DTL Basophils 0.03 0.01 - 0.08 x10(9)/L 07/29/2025 10:37 AM CDT DTL Blood (Blood, Venous) 07/29/2025 9:47 AM CDT 07/29/2025 9:58 AM CDT Arlen James APRN C.N.P., D.N.P. LAB BLOOD NON ADD-ON Final Result [facility] [address] [place] [address] * Calcium, Total (07/29/2025 9:47 AM CDT) Calcium, Total, S 9.3 8.6 - 10.0 mg/dL 07/29/2025 11:31 AM CDT DTL Blood (Blood, Venous) 07/29/2025 9:47 AM CDT 07/29/2025 9:53 AM CDT Arlen James APRN, C.N.P., D.N.P. LAB BLOOD ADD- ON Final Result Performing Organization Address City/[facility]/ZIP Co de Phone Number [facility] [address] [place] [address] * BUN (Blood Urea Nitrogen) (07/29/2025 9:47 AM CDT) BUN (Blood Urea Nitrogen), S 11 6 - 21 mg/dL 07/29/2025 11:31 AM CDT DTL Blood (Blood, Venous) 07/29/2025 9:47 AM CDT 07/29/2025 9:53 AM CDT Arlen James APRN, C.N.P., D.N.P. LAB BLOOD ADD- ON Final Result [facility] [address] DTL [facility] 200 [place] [address] * Bilirubin, Total (07/29/2025 9:47 AM CDT) Bilirubin, Total, P 0.2 0.0 - 1.2 mg/dL 07/29/2025 10:34 AM CDT [facility] Blood (Blood, Venous) 07/29/2025 9:47 AM CDT 07/29/2025 10:07 AM CDT Arlen James APRN, C.N.P., D.N.P. LAB BLOOD ADD- ON Final Result [facility] [address] [facility] [address] [place], [place] [address] * AST (Aspartate Aminotransferase) (07/29/2025 9:47 AM CDT) Aspartate Aminotransferase (AST), P 21 8 - 43 U/L 07/29/2025 10:34 AM CDT METH Blood (Blood, Venous) 07/29/2025 9:47 AM CDT 07/29/2025 10:07 AM CDT Arlen James APRN, C.N.P., D.N.P. LAB BLOOD ADD- ON Final Result [facility] [address] [place] [address], [facility] METH [facility] 200 [place] [address] * ALT (Alanine Aminotransferase) (07/29/2025 9:47 AM CDT) Alanine Aminotransferase (ALT), S 31 7 - 45 U/L 07/29/2025 11:31 AM CDT DTL Blood (Blood, Venous) 07/29/2025 9:47 AM CDT 07/29/2025 9:53 AM CDT Satnam Horne APRN.N.P., D.N.P. LAB BLOOD ADD- ON Final Result [facility] [address] [place] [address], [facility] 200 [place] [address] * Alkaline Phosphatase (07/29/2025 9:47 AM CDT) Alkaline Phosphatase, S 98 35 - 104 U/L 07/29/2025 11:31 AM CDT DTL Blood (Blood, Venous) 07/29/2025 9:47 AM CDT 07/29/2025 9:53 AM CDT Arlen James APRN, Satnam.N.P., D.N.P. LAB BLOOD ADD- ON Final Result Performing Organization Address City/[facility]/ZIP Co de Phone Number [facility] [address] [place] [address], [facility] 200 [place] [address] * Albumin (07/29/2025 9:47 AM CDT) Pathologist [facility] Albumin, S 4.3 3.5 - 5.0 g/dL 07/29/2025 11:31 AM CDT DTL Blood (Blood, Venous) 07/29/2025 9:47 AM CDT 07/29/2025 9:53 AM CDT Arlen James APRN, C.N.P., D.N.P. LAB BLOOD ADD- ON Final Result [facility] [address] [place] [address], [facility] [address] [place] [address] documented in this encounter Visit Diagnoses Diagnosis Transplant Stem Cell (HCC)- Primary Bone Marrow Transplant Status (HCC) documented in this encounter Additional Health Concerns Infection Onset Date Last Indicated Resolved Time Protective Environment 03/02/2023 03/02/2023 Assessment Noted Time PHQ-9 Depression Total Score: 12 025 9:42 AM CDT documented as of this encounter Care Teams Patent Lawyer Relationship Specialty Start Date End Date Renzo Andres M.D. [address] [place] [phone] PCP - General Family Medicine 04/25/23 documented as of this encounter
--- OUTSIDE RECORDS SUMMARY | 2025-08-09 14:32 | XMS_ITS | Encounter Summary ---
Author Organization [facility] Address [address] [place] [address] Care Team Providers Care Veneer Joiner Name Role Phone Renzo Andres M.D. Primary Care Provider Encounter Details Date Type Department Care Team (Latest Contact Info) Description 07/19/2025 Clinical Communication [facility] in [place], [place] [address] [place] [address] Pedro Scruggs, RKatalinaNKatalina Social History Tobacco Use [...] things needed for daily living? No 07/02/2025 [facility] Utilities Answer Date Recorded [...] Assigned at Female 12/26/2018 8:37 PM SENIOR STATISTICAL PROGRAMMER Legal Sex Female 2:43 PM SENIOR STATISTICAL PROGRAMMER Gender Identity Female 12/26/2018 8:37 PM SENIOR STATISTICAL PROGRAMMER Sexual Orientation Choose not to disclose 2020 3:46 PM CDT documented as of this encounter Miscellaneous Notes * Telephone Encounter - Pedro Scruggs R.N. - 07/19/2025 7:16 PM CDT Patient called [facility] per instructions from her local ED. Local ED recommended calling to follow upregarding elevated AST, ALT, and to figure out if the BMT service wanted to conduct a repeat lab draw in the future. RN contacted BMT service and informed them of the elevated levels and the query about follow up testing. She is scheduled to see outpatient BMT on 07/22/2025 for labs and follow up visit. Per service LFTs are already planned to be drawn on 07/22/2025. BMT service did not recommend the patient report to [address] specifically because of the elevated liver enzymes. RN contacted patient to inform her of the providers decisions. Patient was understanding of the education. documented in this encounter Plan of Treatment Upcoming Encounters Date Type Department Care Team (Late st Contact Info) Description 08/11/2025 8:00 AM CDT Office Visit Department of Palliative Care in [place], [place] [address] [place] [phone] Meghan Osorio M.D. [address] [place] [phone] 08/11/2025 9:00 AM CDT Nurse Only Section of Infectious Diseases in [address] [phone] Jessica Rousseau M.B.B.S. [address] [place] [phone] 08/11/2025 1:00 PM CDT Clinical Support Department of Palliative Care in [address] [phone] Uma Aly APRN, C.N.P., M.S.N. [address] [place] [phone] 08/13/2025 10:00 AM CDT Lab Department of Laboratory Medicine and Pathology, [facility], in [place], [place] [address] [place] [phone] Jessica Rousseau M.B.B.S. [address] [place] [phone] 08/13/2025 10:30 AM CDT Office Visit Pedro [facility] for Transplantation and Clinical Regeneration in [place], [place] [address] [place] [phone] Jessica Rousseau M.B.B.S. [address] [place] [phone] Nelli Parker Pharm.D., R.Ph. [address] [place] [address] [phone] 08/13/2025 11:00 AM CDT Nurse Only [facility] Transplantation and Clinical Regeneration in [place], [place] [address] [place] [phone] Jessica Rousseau M.B.B.S. [address] [place] [address] [phone] 08/13/2025 11:30 AM CDT Office Visit [facility] Transplantation and Clinical Regeneration in [place], [place] [address] [place] [phone] Jessica Rousseau M.B.B.S. [address] [place] [phone] 08/13/2025 3:00 PM CDT Clinical Support Department of Palliative Care in [place], [place] [address] [place] [phone] Meghan Osorio M.D. [address] [place] [phone] Mary Garcia M.S.W., L.I.C.S.W. [address] [place] [address] [phone] 08/25/2025 8:[address] [facility] Transplantation and Clinical Regeneration in [place], [place] [address] [place] [phone] Jessica Rousseau M.B.B.S. [address] [place] [phone] documented as of this encounter Visit Diagnoses Not on filedocumented in this encounter Additional Health Concerns Infection Onset Date Last Indicated Resolved Time Protective Environment 03/02/2023 03/02/2023 Assessment Noted Time PHQ-9 Depression Total Score: 12 025 9:42 AM CDT documented as of this encounter Care Teams Veneer Joiner Relationship Specialty Start Date End Date Renzo Andres M.D. [address] [place] [phone] PCP - General Family Medicine 04/25/23 documented as of this encounter
--- OUTSIDE RECORDS SUMMARY | 2025-08-09 14:33 | XMS_ITS | Encounter Summary ---
Author Organization [facility] Address [address] [place] [address] Care Team Providers Care Electronic Intelligence Officer Name Role Phone Renzo Andres M.D. Primary Care Provider Reason for Visit * Reason Comments Med Refill Encounter Details Date Type Department Care Team (Late st Contact Info) Description 07/16/2025 Refill [facility], Tenth Floor [address] [place] [phone] Jessica Avila APRN, C.N.P., M.S.N. [address] [place] [phone] Med Refill Social History Tobacco Use Types [...] things needed for daily living? No 07/02/2025 [facility] Utilities Answer Date Recorded In the past 12 months has [employer] electric, gas, oil, or water [employer] threatened to shut off services in your home? No 07/02/2025 Depression Answer Date Recor ded PHQ-9 Total Score (max 27) 12 07/08 Housing Stability Answer Date Recorded What is your living situation today? I have a [facility] place to live 07/02/2025 Education Answer Date Recorded What is the highest level of school you have completed or the highest degree you have received? Some college, no degree 04/24/2019 Comments No Sex and Gender Information Value Date Recorded Sex Assigned at Female 12/26/2018 8:37 PM LEAD PORTFOLIO MANAGER Legal Sex Female 2:43 PM LEAD PORTFOLIO MANAGER Gender Identity Female 12/26/2018 8:37 PM LEAD PORTFOLIO MANAGER Sexual Orientation Choose not to disclose 2020 3:46 PM CDT documented as of this encounter Plan of Treatment Upcoming Encounters Date Type Department Care Team (Late st Contact Info) Description 08/11/2025 8:00 AM CDT Office Visit Department of Palliative Care in [place], [place] [address] [place] [address] Meghan Osorio M.D. [address] [place] [phone] 08/11/2025 9:00 AM CDT Nurse Only Section of Infectious Diseases in [place], [place] [address] [place] [phone] Jessica Rousseau M.B.B.S. [address] [place] [address] [phone] 08/11/2025 1:00 PM CDT Clinical Support Department of Palliative Care in [place], [place] [address] [place] [address] Uma Aly APRN, C.N.P., M.S.N. [address] [place] [address] [phone] 08/13/2025 10:00 AM CDT Lab Department of Laboratory Medicine and Pathology, [facility] in [place], [place] [address] [place] [phone] Jessica Rousseau M.B.B.S. [address] [place] [address] [phone] 08/13/2025 10:30 AM CDT Office Visit Pedro Fatima [facility] for Transplantation and Clinical Regeneration in [place], [place] [address] [place] [phone] Jessica Rousseau M.B.B.S. [address] [place] [phone] Nelli Parker, Pharm.D., R.Ph. [address] [place] [address] [phone] 08/13/2025 11:00 AM CDT Nurse Only [facility] in [place], [place] [address] [place] [phone] Jessica Rousseau M.B.B.S. [address] [place] [phone] 08/13/2025 11:30 AM CDT Office Visit [facility] Transplantation and Clinical Regeneration in [place], [place] [address] [place] [phone] Jessica Rousseau M.B.B.S. [address] [place] [phone] 08/13/2025 3:00 PM CDT Clinical Support Department of Palliative Care in [place], [place] [address] [place] [address] [phone] Meghan Osorio M.D. [address] [place] [phone] Mary Garcia M.S.Vivi., L.I.C.S.W. [address] [place] [phone] 08/25/2025 8:00 AM CDT Telemedicine [facility] Transplantation and Clinical Regeneration in [place], [place] [address] [place] [phone] Jessica Rousseau M.B.B.S. [address] [place] [phone] documented as of this encounter Visit Diagnoses Not on filedocumented in this encounter Additional Health Concerns Infection Onset Date Last Indicated Resolved Time Protective Environment 03/02/2023 03/02/2023 Assessment Noted Time PHQ-9 Depression Total Score: 12 025 9:42 AM CDT documented as of this encounter Care Teams Electronic Intelligence Officer Relationship Specialty Start Date End Date Renzo Andres M.D. [address] [place] [phone] PCP - General Family Medicine 04/25/23 documented as of this encounter
--- OUTSIDE RECORDS SUMMARY | 2025-08-09 14:33 | XMS_ITS ---
Author Organization [facility] Address [address] [place] [address] Care Team Providers Care Rn Emergency Name Role Phone Renzo Andres M.D. Primary Care Provider [phone] Active Problems * This document contains information received from the source organization and may not represent a complete record from that organization. Patient Care Coordination No te Formatting of this note is d ifferent from the original. Survivorship and Health Maintenance Testing initiated at Day +100 timeframe, then repeated annually as needed: Bone Marrow Biopsy: 06/15/25 Sort Chimerism: 06/25/25 BCR/ABL 06/23/25 PFTs: 03/23/25 DEXA scan: 03/20/25 Vitamin Lipid Panel: 07/06/25 TSH: 03/24/25 Ferritin: 03/24/25 Hgb A1C: 03/24/25 Colonoscopy/Cologuard: 07/30/25 PAP: Mammogram: Dental: Eye: Dermatology: Immunization Education [...] RSV: MMR: Local Lab/Provider: [place] [address] Problem Noted Date Diagnosed Date Pain Left [...] / Busulfan 130 mg/m2 (Daily) Myeloablative Conditioning 04/22/2025 busulfan (Busulfex) IVPB in 1000 mL [...] (Mesnex) Therapy Complete Jessica Rousseau M.B.B.S. 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 Treatment not started Infusion Therapy 1 Plan Name Start Date Discontinue Date Treatment Medications Discontinue Reason Plan Provider Hydration 07/22/2025 07/22/2025 No medications scheduled. Therapy Complete Arlen James APRN, C.N.P., D.N.P. leuprolide (LUPRON) 12/02/2024 04/22/2025 No medications scheduled. Therapy Complete Jessica Rousseau M.B.B.SKatalina LEUPROLIDE (LUPRON) 10/25/2021 10/09/2023 No medications scheduled. [...] medications scheduled. Therapy Complete Carlee Armas APRN, C.N.Jean., Heaven.N.P., M.S.N. 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); Transplant Bone Marrow Allogeneic (HCC) 07/16/2025 Appointment TXP BMT - Becky Tidwell APRN, C.N.P., D.N.P.; Lida Olivas, RFritz 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); Transplant Stem Cell (HCC); Abnormal Finding Of Blood Chemistry Unspecified 07/22/2025 Appointment TX BMT - Kishan James Transplant Bone Marrow Allogeneic (HCC) (Primary Dx); 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) 07/29/2025 Appointment TX BMT - Analia Anthony APRN, C.N.P.; Lida Olivas, RFritz 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
--- OUTSIDE RECORDS SUMMARY | 2025-08-09 14:33 | XMS_ITS | Encounter Summary ---
Author Organization [facility] Address [address] [place] [address] Care Team Providers Care Rf Microwave Engineer Name Role Phone Renzo Andres M.D. 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 [...] things needed for daily living? No 07/02/2025 [facility] Utilities Answer Date Recorded In the past 12 months has [facility] [employer], gas, oil, or water [employer] threatened to shut off services in your home? No 07/02/2025 Depression Answer Date Recor ded PHQ-9 Total Score (max 27) 12 07/08 Housing Stability Answer Date Recorded What is your living situation today? I have a [facility] place to live 07/02/2025 Education Answer Date Recorded What is the highest level of school you have completed or the highest degree you have received? Some college, no degree 04/24/2019 Comments No Sex and Gender Information Value Date Recorded Sex Assigned at Female 12/26/2018 8:37 PM PICKING MACHINE OPERATOR HELPER Legal Sex Female 2:43 PM PICKING MACHINE OPERATOR HELPER Gender Identity Female 12/26/2018 8:37 PM PICKING MACHINE OPERATOR HELPER Sexual Orientation Choose not to disclose 2020 3:46 PM CDT documented as of this encounter Plan of Treatment Upcoming Encounters Date Type Department Care Team (Late st Contact Info) Description 08/11/2025 8:00 AM CDT Office Visit Department of Palliative Care in [place], [place] [address] [place] [phone] Meghan Osorio M.D. [address] [place] [phone] 08/11/2025 9:00 AM CDT Nurse Only Section of Infectious Diseases in [place], [place] [address] [place] [phone] Jessica Rousseau M.B.B.S. [address] [place] [address] [phone] 08/11/2025 1:00 PM CDT Clinical Support Department of Palliative Care in [place], [place] [address] [place] [phone] Uma Aly APRN, C.N.P., M.S.N. [address] [place] [phone] 08/13/2025 10:00 AM CDT Lab Department of Laboratory Medicine and Pathology, [facility], in [place], [place] [address] [place] [phone] Jessica Rousseau M.B.B.S. [address] [place] [address] [phone] 08/13/2025 10:30 AM CDT [facility] in [place], [place] [address] [place] [phone] Jessica Rousseau M.B.B.S. [address] [place] [phone] Nelli Parker, D., R.Ph. [address] [place] [address] [phone] 08/13/2025 11:00 AM CDT Nurse Only [facility] Transplantation and Clinical Regeneration in [place], [place] [address] [place] [phone] Jessica Rousseau M.B.B.S. [address] [place] [phone] 08/13/2025 11:30 AM CDT Office Visit [facility] Transplantation and Clinical Regeneration in [place], [place] [address] [place] [phone] Jessica Rousseau M.B.B.S. [address] [place] [phone] 08/13/2025 3:00 PM CDT Clinical Support Department of Palliative Care in [address] [phone] Meghan Osorio M.D. [address] [place] [phone] Mary Garcia M.S.W., L.I.C.S.W. [address] [place] [address] [phone] 08/25/2025 8:00 AM CDT Telemedicine [facility] Transplantation and Clinical Regeneration in [address] [phone] Jessica Rousseau M.B.B.S. [address] [place] [phone] Scheduled Referrals Name Type Priority Associated Diagnoses [...] documented as of this encounter Care Teams Rf Microwave Engineer Relationship Specialty Start Date End Date Renzo Andres M.D. NPAmanda: [phone] [address] [place] [phone] PCP - General Family Medicine 04/25/23 documented as of this encounter
--- OUTSIDE RECORDS SUMMARY | 2025-08-09 14:33 | XMS_ITS | Encounter Summary ---
Author Organization [facility] Address [address] [place] [address] Care Team Providers Care Lithopress Operator Name Role Phone Renzo Andres M.D. Primary Care Provider Encounter Details Date Type Department Care Team (Late st Contact Info) Description 07/10/2025 Clinical Communication [facility], Ninth Floor [address] [place] [phone] Lucy Stout, R.N., BMT-CN, O.C.N. Social History [...] your living situation today? I have a [facility] place to live 07/02/2025 Education Answer Date Recorded What is the highest level of school you have completed or the highest degree you have received? Some college, no degree 04/24/2019 Comments No Sex and Gender Information Value Date Recorded Sex Assigned at Female 12/26/2018 8:37 PM REPACK ROOM WORKER Legal Sex Female 2:43 PM REPACK ROOM WORKER Gender Identity Female 12/26/2018 8:37 PM REPACK ROOM WORKER Sexual Orientation Choose not to disclose [...] Office Visit Department of Palliative Care in [address] [phone] Meghan Osorio M.D. [address] [place] [phone] 08/11/2025 9:00 AM CDT Nurse Only Section of Infectious Diseases in [address] [phone] Jessica Rousseau, Tim.Dayday.B.S. [address] [place] [phone] 08/11/2025 1:00 PM CDT Clinical Support Department of Palliative Care in [address] [phone] Uma Aly APRN, C.N.P., M.S.N. [address] [place] [phone] 08/13/2025 10:00 AM CDT Lab Department of Laboratory Medicine and Pathology, [facility], in [place], [place] [address] [place] [phone] Jessica Rousseau M.B.B.S. [address] [place] [phone] 08/13/2025 10:30 AM CDT Office Visit [facility] for Transplantation and Clinical Regeneration in [place], [place] [address] [place] [phone] Jessica Rousseau M.B.B.S. [address] [place] [phone] Nelli Parker Pharm.D., R.Ph. [address] [place] [address] [phone] 08/13/2025 11:00 AM CDT Nurse Only [facility] Transplantation and Clinical Regeneration in [place], [place] [address] [place] [phone] Jessica Rousseau M.B.B.S. [address] [place] [phone] 08/13/2025 11:30 AM CDT Office Visit [facility] for Transplantation and Clinical Regeneration in [place], [place] [address] [place] [phone] Jessica Rousseau M.B.B.S. [address] [place] [phone] 08/13/2025 3:00 PM CDT Clinical Support Department of Palliative Care in [place], [place] [address] [place] [address] Meghan Osorio M.D. [address] [place] [phone] Mary Garcia M.S.W., L.I.C.S.W. [address] [place] [phone] 08/25/2025 8:00 AM CDT Telemedicine [facility] in [place], [place] [address] [place] [phone] Jessica Rousseau M.B.B.SKatalina [address] [place] [phone] documented as of this encounter Visit Diagnoses Not on filedocumented in this encounter Additional Health Concerns Infection Onset Date Last Indicated Resolved Time Protective Environment 03/02/2023 03/02/2023 Assessment Noted Time PHQ-9 Depression Total Score: 12 025 9:42 AM CDT documented as of this encounter Care Teams Lithopress Operator Relationship Specialty Start Date End Date Renzo Andres M.D. [address] [place] [phone] PCP - General Family Medicine 04/25/23 documented as of this encounter
--- OUTSIDE RECORDS SUMMARY | 2025-08-09 14:33 | XMS_ITS | Encounter Summary ---
Author Organization [facility] Address [address] [place] [address] Care Team Providers Care Appliance Repair Technician Name Role Phone Renoz Andres M.D. Primary Care Provider [phone] Reason for Visit * Reason Onset Date Comments Med Refill 07/13/2025 Encounter Details Date Type Department Care Team (Late st Contact Info) Description 07/13/2025 [facility] [place], [place] [address] [place] [phone] Jessica Rousseau M.B.B.S. [address] [place] [phone] Med Refill Social History Tobacco Use Types [...] things needed for daily living? No 07/02/2025 [facility] Utilities Answer Date Recorded In the past 12 months has [employer] gas, oil, or water [employer] threatened to shut off services in [...] Sex Assigned at Female 12/26/2018 8:37 PM WEATHER STRIP INSTALLER Legal Sex Female 2:43 PM WEATHER STRIP INSTALLER Gender Identity Female 12/26/2018 8:37 PM WEATHER STRIP INSTALLER Sexual Orientation Choose not to disclose [...] Office Visit Department of Palliative Care in [place], [place] [address] [place] [phone] Meghan Osorio M.D. [address] [place] [phone] 08/11/2025 9:00 AM CDT Nurse Only Section of Infectious Diseases in [place], [place] [address] [place] [phone] Jessica Rousseau M.B.B.S. [address] [place] [phone] 08/11/2025 1:00 PM CDT Clinical Support Department of Palliative Care in [place], [place] [address] [place] [phone] Uma Aly APRN, C.N.P., M.S.N. [address] [place] [phone] 08/13/2025 10:00 AM CDT Lab Department of Laboratory Medicine and Pathology, [facility], in [place], [place] [address] [place] [phone] Jessica Rousseau M.B.B.S. [address] [place] [phone] 08/13/2025 10:30 AM CDT [facility] in [place], [place] [address] [place] [phone] Jessica Rousseau M.B.B.S. [address] [place] [phone] ParkerNelli Pharm.D., R.Ph. [address] [place] [phone] 08/13/2025 11:00 AM CDT Nurse Only [facility] Transplantation and Clinical Regeneration in [place], [place] [address] [place] [phone] Jessica Rousseau M.B.B.S. [address] [place] [phone] 08/13/2025 11:30 AM CDT Office Visit [facility] Transplantation and Clinical Regeneration in [place], [place] [address] [place] [phone] Jessica Rousseau M.B.B.S. [address] [place] [phone] 08/13/2025 3:00 PM CDT Clinical Support Department of Palliative Care in [place], [place] [address] [place] [phone] Meghan Osorio M.D. [address] [place] [phone] Mary Garcia M.SKatalinaW., L.I.C.S.W. [address] [place] [phone] 08/25/2025 8:00 AM CDT Telemedicine [facility] Transplantation and Clinical Regeneration in [place], [place] [address] [place] [phone] Jessica Rousseau M.B.B.S. 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 [address] [place] [address] [place] [phone] PCP - General Family Medicine 04/25/23 documented as of this encounter
--- OUTSIDE RECORDS SUMMARY | 2025-08-09 14:33 | XMS_ITS | Encounter Summary ---
Author Organization [facility] Address [address] [place] [address] Care Team Providers Care Conveyor Line Battery Charger Name Role Phone Renzo Andres M.D. Primary Care Provider [phone] Reason for Visit * Reason Onset Date Comments Med Refill 07/15/2025 Encounter Details Date Type Department Care Team (Late st Contact Info) Description 07/15/2025 Refill Pedro sanchez [facility] Trans[facility] Clinical Regeneration in [place], [place] [address] [place] [address] Lida Olivas, RKatalinaN. Med Refill Social History [...] things needed for daily living? No 07/02/2025 [facility] Utilities Answer Date Recorded In the past 12 months has e electric, gas, oil, or water company threatened to shut off services in your home? No 07/02/2025 Depression Answer Date Recor ded PHQ-9 Total Score (max 27) 12 07/08 Housing Stability Answer Date Recorded What is your living situation today? I have a [facility] place to live 07/02/2025 Education Answer Date Recorded What is the highest level of school you have completed or the highest degree you have received? Some college, no degree 04/24/2019 Comments No Sex and Gender Information Value Date Recorded Sex Assigned at Female 12/26/2018 8:37 PM CLINICAL EDITOR Legal Sex Female 2:43 PM CLINICAL EDITOR Gender Identity Female 12/26/2018 8:37 PM CLINICAL EDITOR Sexual Orientation Choose not to disclose 2020 3:46 PM CDT documented as of this encounter Plan of Treatment Upcoming Encounters Date Type Department Care Team (Late st Contact Info) Description 08/11/2025 8:00 AM CDT Office Visit Department of Palliative Care in [place], [place] 200 [place] [address] Meghan Osorio M.D. 200 [place] [address] 08/11/2025 9:00 AM CDT Nurse Only Section of Infectious Diseases in [place], [place] [address] [place] [phone] Jessica Rousseau M.B.B.S. [address] [place] [phone] 08/11/2025 1:00 PM CDT Clinical Support Department of Palliative Care in [place], [place] [address] [place] [phone] Uma Aly APRN, C.NLuigi., M.S.N. [address] [place] [phone] 08/13/2025 10:00 AM CDT Lab Department of Laboratory Medicine and Pathology, [facility], in [place], [place] [address] [place] [phone] Jessica Rousseau M.B.B.S. [address] [place] [phone] 08/13/2025 10:30 AM CDT Office Visit Pedro [facility] in [place], [place] [address] [place] [phone] Jessica Rousseau M.B.B.S. [address] [place] [phone] Nelli Parker, Pharm.D., R.Ph. [address] [place] [phone] 08/13/2025 11:00 AM CDT Nurse Only [facility] in [place], [place] [address] [place] [phone] Jessica Rousseau M.B.B.S. [address] [place] [phone] 08/13/2025 11:30 AM CDT Office Visit [facility] Transplantation and Clinical Regeneration in [place], [place] [address] [place] [phone] Jessica Rousseau M.B.B.S. [address] [place] [phone] 08/13/2025 3:00 PM CDT Clinical Support Department of Palliative Care in [place], [place] [address] [place] [phone] Meghan Osorio M.D. [address] [place] [phone] Mary Garcia M.SLavern., L.I.C.S.W. [address] [place] [phone] 08/25/2025 8:00 AM CDT Telemedicine [facility] Transplantation and Clinical Regeneration in [place], [place] [address] [place] [phone] Jessica Rousseau M.B.B.S. 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 [address] [place] [phone] PCP - General Family Medicine 04/25/23 documented as of this encounter
--- OUTSIDE RECORDS SUMMARY | 2025-08-09 14:34 | XMS_ITS | Encounter Summary ---
Author Organization [facility] Address [address] [place] [address] Care Team Providers Care Veterinary Pathologist Name Role Phone Renzo Andres M.D. Primary Care Provider Reason for Visit * Reason Onset Date Comments Med Refill 07/02/2025 Encounter Details Date Type Department Care Team (Late st Contact Info) Description 07/02/2025 [facility] in [place], [place] [address] [place] [phone] Daniela Mercer R.N., BMT-CN [address] [place] [phone] Med Refill Social History Tobacco Use Types [...] things needed for daily living? No 07/02/[address] [facility] Utilities Answer Date Recorded In the past 12 months has e electric, gas, oil, or water [employer] threatened to shut off services in your [...] Sex Assigned at Female 12/26/2018 8:37 PM WELLNESS COACH Legal Sex Female 2:43 PM WELLNESS COACH Gender Identity Female 12/26/2018 8:37 PM WELLNESS COACH Sexual Orientation Choose not to disclose 2020 3:46 PM CDT documented as of this encounter Plan of Treatment Upcoming Encounters Date Type Department Care Team (Late st Contact Info) Description 08/11/2025 8:00 AM CDT Office Visit Department of Palliative Care in [place], [place] [address] [place] [address] Meghan Osorio M.D. [address] [place] [phone] 08/11/2025 9:00 AM CDT Nurse Only Section of Infectious Diseases in [place], [place] [address] [place] [phone] Jessica Rousseau M.B.B.S. [address] [place] [phone] 08/11/2025 1:00 PM CDT Clinical Support Department of Palliative Care in [place], [place] [address] [place] [phone] Uma Aly APRN, C.N.P., M.S.N. [address] [place] [phone] 08/13/2025 10:00 AM CDT Lab Department of Laboratory Medicine and Pathology, [facility] in [place], [place] [address] [place] [phone] Jessica Rousseau M.B.B.S. [address] [place] [phone] 08/13/2025 10:30 AM CDT [facility] in [place], [place] [address] [place] [phone] Jessica Rousseau M.B.B.S. [address] [place] [phone] Nelli Parker, Pharm.D., R.Ph. [address] [place] [phone] 08/13/2025 11:00 AM CDT Nurse Only [facility] in [place], [place] [address] [place] [phone] Jessica Rousseau M.B.B.S. [address] [place] [phone] 08/13/2025 11:30 AM CDT Office Visit [facility] [place] Transplantation and Clinical Regeneration in [place], [place] [address] [place] [phone] Jessica Rousseau M.B.B.S. [address] [place] [phone] 08/13/2025 3:00 PM CDT Clinical Support Department of Palliative Care in [place], [place] [address] [place] [phone] Meghan Osorio M.D. [address] [place] [phone] Mary Garcia M.SLavern., L.I.C.S.W. [address] [place] [phone] 08/25/2025 8:00 AM CDT Telemedicine [facility] [place] Transplantation and Clinical Regeneration in [place], [place] [address] [place] [phone] Jessica Rousseau M.B.B.S. 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 [address] [place] [address] [place] [phone] PCP - General Family Medicine 04/25/23 documented as of this encounter
--- OUTSIDE RECORDS SUMMARY | 2025-08-09 14:34 | XMS_ITS | Encounter Summary ---
Author Organization [facility] Address [address] [place] [address] Care Team Providers Care Retail Route Supervisor Name Role Phone Renzo Andres M.D. Primary Care Provider Encounter Details Date Type Department Care Team (Late st Contact Info) Description 07/02/2025 Documentation [facility] Aravind [facility] for Transplantation and Clinical Regeneration in [place], [place] [address] [place] [phone] Jessica Rousseau M.B.B.S. [address] [place] [phone] Social History Tobacco Use Types Packs/Day Years [...] things needed for daily living? No 07/02/2025 [facility] Utilities Answer Date Recorded In the past 12 months has th e [employer], gas, oil, or water company threatened to shut off services in your home? No 07/02/2025 Depression Answer Date Recor ded PHQ-9 Total Score (max 27) 2 12/10 Housing Stability Answer Date Recorded What is your living situation today? I have a [employer] place to live 07/02/2025 Education Answer Date Recorded What is the highest level of school you have completed or the highest degree you have received? Some college, no degree 04/24/2019 Comments No Sex and Gender Information Value Date Recorded Sex Assigned at Female 12/26/2018 8:37 PM MAINTENANCE CHIEF Legal Sex Female 2:43 PM MAINTENANCE CHIEF Gender Identity Female 12/26/2018 8:37 PM MAINTENANCE CHIEF Sexual Orientation Choose not to disclose 2020 [...] to Ms. Martinez and discussed possibility of [id number] disease of the lower gut. She continues [...] Office Visit Department of Palliative Care in [address] [phone] Meghan Osorio M.D. [address] [place] [phone] 08/11/2025 9:00 AM CDT Nurse Only Section of Infectious Diseases in [address] [phone] Jessica Rousseau M.B.B.S. [address] [place] [phone] 08/11/2025 1:00 PM CDT Clinical Support Department of Palliative Care in [address] [phone] Uma Aly APRN, C.N.P., M.S.N. [address] [place] [phone] 08/13/2025 10:00 AM CDT Lab Department of Laboratory Medicine and Pathology, [facility], in [place], [place] [address] [place] [phone] Jessica Rousseau M.B.B.S. [address] [place] [phone] 08/13/2025 10:30 AM CDT Office [facility] in [place], [place] [address] [place] [phone] Jessica Rousseau M.B.B.S. [address] [place] [phone] Nelli Parker Pharm.D., R.Ph. [address] [place] [phone] 08/13/2025 11:00 AM CDT Nurse Only [facility] for Transplantation and Clinical Regeneration in [place], [place] [address] [place] [phone] Jessica Rousseau M.B.B.S. [address] [place] [phone] 08/13/2025 11:30 AM CDT Office Visit [facility] in [place], [place] [address] [place] [phone] Jessica Rousseau M.B.B.S. [address] [place] [phone] 08/13/2025 3:00 PM CDT Clinical Support Department of Palliative Care in [place], [place] [address] [place] [phone] Meghan Osorio M.D. [address] [place] [phone] Mary Garcia M.S.W., L.I.C.S.W. [address] [place] [phone] 08/25/2025 8:00 AM CDT Telemedicine [facility] for Transplantation and Clinical Regeneration in [place], [place] [address] [place] [phone] Jessica Rousseau M.B.BKatalinaS. [address] [place] [phone] documented as of this encounter Visit Diagnoses Not on filedocumented in this encounter Additional Health Concerns Infection Onset Date Last Indicated Resolved Time Protective Environment 03/02/2023 03/02/2023 Assessment Noted Time PHQ-9 Depression Total Score: 2 12/10/19 25 2:46 PM MAINTENANCE CHIEF documented as of this encounter Care Teams Retail Route Supervisor Relationship Specialty Start Date End Date Renzo Andres M.D. [address] [place] [phone] PCP - General Family Medicine 04/25/23 documented as of this encounter
--- OUTSIDE RECORDS SUMMARY | 2025-08-09 14:34 | XMS_ITS | Encounter Summary ---
Author Organization [facility] Address [address] [place] [id number] Care Team Providers Care Field Map Technician Name Role Phone Renzo Andres M.D. Primary Care Provider Reason for Referral * Transplant (Routine) - Closed Specialty Diagnoses / Procedures Referred By Contac t Referred To Contact Transplant Jessica Rousseau M.B.B.S. [address] [place] [phone] Phone: tel: fax: [facility] Referral ID Status Reason Start Date Expiration Date Visits Re quested Visits Authorized [id number] Closed 07/02/2025 01/01/2027 1 1 Scheduling Instructions Please schedule with BMT MD for 30 minutes. Patient type: Allo Over 100 Visit Type: Return Scheduling Preferences Option 1: MD/RN no joint visit Option 2: MD/RN no joint visit Other Scheduling Instructions:please schedule with DR Rousseau in 2 weeks in person Primary MD:DR Rousseau RN Team: Rst Bmt Team Two [place] * Outpatient (Routine) - Closed Specialty Diagnoses / Procedures Referred By Contac t Referred To Contact Pharmacy Jessica Rousseau M.B.B.S. [address] [place] [phone] Phone: tel: fax: [facility] Referral ID Status Reason Start Date Expiration Date Visits Re quested Visits Authorized [id number] Closed 07/02/2025 01/01/2027 1 1 Scheduling Instructions Please schedule with pharmacist for 30 minutes. Patient type: Allo Over 100 Visit Type: Return Scheduling Preferences Option 1: MD/RN no joint visit Option 2: MD/RN no joint visit Other Scheduling Instructions:please schedule with DR Rousseau in 2 weeks in person Primary MD:DR Rousseau RN Team: Rst Bmt Team Two [place] * Transplant (Routine) - Closed Specialty Diagnoses / Procedures Referred By Contac t Referred To Contact Transplant Jessica Rousseau M.B.B.S. 200 [place] [address] Phone: tel: fax: [facility] Referral ID Status Reason Start Date Expiration Date Visits Re quested Visits Authorized [id number] Closed 07/02/2025 01/01/2027 1 1 Scheduling Instructions Please schedule with RNCC for 30 min Patient type: Allo Over 100 Visit Type: Return Scheduling Preferences Option 1: MD/RN no joint visit Option 2: MD/RN no joint visit Other Scheduling Instructions:please schedule with DR Rousseau in 2 weeks in person Primary MD:DR Rousseau RN Team: Rst Bmt Team Two [place] Encounter Details Date Type Department Care Team (Late st Contact Info) Description 07/02/2025 Orders Only [facility] in [place], [place] [address] [place] [phone] Daniela Mercer R.N., BMT-CN [address] [place] [phone] 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 No 07/02/2025 [facility] Utilities Answer Date Recorded In the past 12 months has [facility] electric, gas, oil, or water company threatened to shut off services in your home? No 07/02/2025 Depression Answer Date Recor ded PHQ-9 Total Score (max 27) 12 07/08 Housing Stability Answer Date Recorded What is your living situation today? I have a [facility] place to live 07/02/2025 Education Answer Date Recorded What is the highest level of school you have completed or the highest degree you have received? Some college, no degree 04/24/2019 Comments No Sex and Gender Information Value Date Recorded Sex Assigned at Female 12/26/2018 8:37 PM CLINICAL PHARMACY MANAGER Legal Sex Female 2:43 PM CLINICAL PHARMACY MANAGER Gender Identity Female 12/26/2018 8:37 PM CLINICAL PHARMACY MANAGER Sexual Orientation Choose not to disclose 2020 3:46 PM CDT documented as of this encounter Plan of Treatment Upcoming Encounters Date Type Department Care Team (Late st Contact Info) Description 08/11/2025 8:00 AM CDT Office Visit Department of Palliative Care in [place], [place] [address] [place] [phone] Meghan Osorio M.D. [address] [place] [phone] 08/11/2025 9:00 AM CDT Nurse Only Section of Infectious Diseases in [address] [phone] Jessica Rousseau M.B.B.S. [address] [place] [phone] 08/11/2025 1:00 PM CDT Clinical Support Department of Palliative Care in [address] [phone] Uma Aly APRN, C.N.P., M.S.N. [address] [place] [phone] 08/13/2025 10:00 AM CDT Lab Department of Laboratory Medicine and Pathology, [facility], in [place], [place] [address] [place] [phone] Jessica Rousseau M.B.B.S. [address] [place] [phone] 08/13/2025 10:30 AM CDT Office Visit [facility] in [place], [place] [address] [place] [phone] Jessica Rousseau M.B.B.S. [address] [place] [phone] Nelli Parker Pharm.D., R.Ph. [address] [place] [phone] 08/13/2025 11:00 AM CDT Nurse Only [facility] for Transplantation and Clinical Regeneration in [place], [place] [address] [place] [phone] Jessica Rousseau M.B.B.S. [address] [place] [phone] 08/13/2025 11:30 AM CDT Office Visit [facility] Transplantation and Clinical Regeneration in [place], [place] [address] [place] [phone] Jessica Rousseau M.B.B.S. [address] [place] [phone] 08/13/2025 3:00 PM CDT Clinical Support Department of Palliative Care in [place], [place] [address] [place] [phone] Meghan Osorio M.D. [address] [place] [phone] Mary Garcia M.S.W., L.I.C.S.W. [address] [place] [phone] 08/25/2025 8:00 AM CDT Telemedicine [facility] for Transplantation and Clinical Regeneration in [place], [place] [address] [place] [address] [phone] Jessica Rousseau M.B.B.S. [address] [place] [phone] Scheduled Referrals Name Type Priority Associated Diagnoses [...] EBV DNA Detect/Quant (07/16/2025 7:56 AM CDT) [facility] EBV DNA Detect/Quant, P Undetected Undetected IU/mL 07/17/2025 1:06 PM CDT [facility] Comment: Result in log IU/mL is Undetected. ----ADDITIONAL INFORMATION---- The quantification range of this assay is 35 to 100,000,000 IU/mL (1.54 log to 8.00 log IU/mL). Testing was performed using the lucrecia EBV test ([employer] Blood (Blood, Venous) 07/16/2025 7:56 AM CDT 07/16/2025 10:03 AM CDT Jessica Barnes LAB MICROBIOLOGY - BLOOD O RDERABLES Final Result [facility] [address] [place] [address] [facility] [address] [place] [address] [place] [address] * CMV DNA Detect / Quant, Plasma (07/16/2025 7:56 AM CDT) [facility] CMV DNA Detect/Quant, P Undetected Undetected IU/mL 07/17/2025 12:41 PM CDT [facility] Comment: Result in log IU/mL is Undetected. ----ADDITIONAL INFORMATION---- The quantification range of this assay is 35 to 10,000,000 IU/mL (1.54 log to 7.00 log IU/mL). Testing was performed using the lucrecia CMV test ([employer] Blood (Blood, Venous) 07/16/2025 7:56 AM CDT 07/16/2025 11:16 AM CDT Jessica LiconaS. LAB MICROBIOLOGY - BLOOD O RDERABLES Final Result [facility] [address] [place] [address] [facility] [address] [place] [address] [place] [address] * LD (Lactate Dehydrogenase) (07/16/2025 7:56 AM CDT) [facility] LD 197 122 - 222 U/L 07/16/2025 9:12 AM CDT DTL Blood (Blood, Venous) 07/16/2025 7:56 AM CDT 07/16/2025 8:51 AM CDT Jessica LiconaS. LAB BLOOD NON ADD-ON Final Result Performing Organization Address [facility] de Phone Number [address] [address], [facility] [address] [address] * (ABNORMAL) Glucose, Fasting (07/16/2025 7:56 AM CDT) [facility] Glucose, P 130(H) 70 - 100 mg/dL 07/16/2025 8:33 AM CDT DTL Last Intake 2 hr 07/16/2025 8:08 AM CDT DTL Blood (Blood, Venous) 07/16/2025 7:56 AM CDT 07/16/2025 8:08 AM CDT Jessica DowlingB.S. LAB BLOOD NON ADD-ON Final Result [facility] [address] [place] [address], [facility] DTL [facility] [address] [place] [address] * CBC no call back, reflex T/S HGB <8 (07/16/2025 7:56 AM CDT) Hemoglobin 12.3 11.6 - 15.0 g/dL 07/16/2025 [...] AM CDT 07/16/2025 8:11 AM CDT us Aasiya Soham M.B.B.S. LAB BLOOD NON ADD-ON Final Result [facility] [address] [place] [address], [facility] 200 [place] [address] [facility] 200 [place] [address] * Bilirubin, Total (07/16/2025 7:56 AM CDT) Bilirubin, Total, P <0.2 0.0 - 1.2 mg/dL 07/16/2025 10:28 AM CDT DTL Blood (Blood, Venous) 07/16/2025 7:56 AM CDT 07/16/2025 8:12 AM CDT Jessica Bustillos.S. LAB BLOOD ADD-ON Final Res ult Performing Organization Address City/[facility]/ZIP Co de Phone Number [facility] [address] [place] [address], [facility] 200 [place] [address] * AST (Aspartate Aminotransferase) (07/16/2025 7:56 AM CDT) Aspartate Aminotransferase (AST), P 17 8 - 43 U/L 07/16/2025 10:59 AM CDT DTL Blood (Blood, Venous) 07/16/2025 7:56 AM CDT 07/16/2025 8:12 AM CDT Jessica DowlingB.S. LAB BLOOD ADD-ON Final Res ult [facility] [address] [place] [address], [facility] 200 [place] [address] * Sodium (07/16/2025 7:55 AM CDT) Sodium, S 139 135 - 145 mmol/L 07/16/2025 8:56 AM CDT DTL Blood (Blood, Venous) 07/16/2025 7:55 AM CDT 07/16/2025 8:09 AM CDT Jessica DowlingB.S. LAB BLOOD ADD-ON Final Res ult Performing Organization Address City/[facility]/ZIP Co de Phone Number [facility] [address] [place] [address] * Potassium (07/16/2025 7:55 AM CDT) Potassium, S 3.9 3.6 - 5.2 mmol/L 07/16/2025 8:56 AM CDT DTL Blood (Blood, Venous) 07/16/2025 7:55 AM CDT 07/16/2025 8:09 AM CDT Jessica DowlingB.S. LAB BLOOD ADD-ON Final Res ult Performing Organization Address [facility] Co de Phone Number [facility] 200 [place] [address], [facility] 200 [place] [address] * Magnesium (07/16/2025 7:55 AM CDT) Magnesium, S 2.0 1.7 - 2.3 mg/dL 07/16/2025 8:56 AM CDT DTL Blood (Blood, Venous) 07/16/2025 7:55 AM CDT 07/16/2025 8:09 AM CDT Jessica DowlingB.S. LAB BLOOD ADD-ON Final Res ult Performing Organization Address City/[facility]/ZIP Co de Phone Number [facility] [address] 200 [place] [address] * Creatinine with Estimated GFR (07/16/2025 7:55 AM CDT) Creatinine 0.86 0.59 - 1.04 mg/dL 07/16/2025 8:56 AM CDT DT Estimated GFR (eGFR) 90 >=60 mL/min/BSA 07/16/2025 8:56 AM CDT DTL Comment: Estimated GFR calculated using the 2020 CKD_EPI creatinine equation. Blood (Blood, Venous) 07/16/2025 7:55 AM CDT 07/16/2025 8:09 AM CDT us Jessica DowlingB.S. LAB BLOOD ADD-ON Final Res ult [facility] [address] 200 [place] [address] * Calcium, Total (07/16/2025 7:55 AM CDT) Pathologist [facility] Calcium, Total, S 9.3 8.6 - 10.0 mg/dL 07/16/2025 8:56 AM CDT DT Blood (Blood, Venous) 07/16/2025 7:55 AM CDT 07/16/2025 8:09 AM CDT us Jessica DowlingB.S. LAB BLOOD ADD-ON Final Res ult [facility] 200 [place] [address] * BUN (Blood Urea Nitrogen) (07/16/2025 7:55 AM CDT) BUN (Blood Urea Nitrogen), S 16 6 - 21 mg/dL 07/16/2025 8:56 AM CDT DTL Blood (Blood, Venous) 07/16/2025 7:55 AM CDT 07/16/2025 8:09 AM CDT Jessica DowlingB.S. LAB BLOOD ADD-ON Final Res ult Performing Organization Address City/[facility]/ZIP Co de Phone Number [facility] [address] [place] [address] * ALT (Alanine Aminotransferase) (07/16/2025 7:55 AM CDT) Alanine Aminotransferase (ALT), S 39 7 - 45 U/L 07/16/2025 8:56 AM CDT DTL Blood (Blood, Venous) 07/16/2025 7:55 AM CDT 07/16/2025 8:09 AM CDT Jessica DowlingB.S. LAB BLOOD ADD-ON Final Res ult Performing Organization Address [facility] Co de Phone Number [facility] [address] 200 [place] [address] * Alkaline Phosphatase (07/16/2025 7:55 AM CDT) Alkaline Phosphatase, S 103 35 - 104 U/L 07/16/2025 8:56 AM CDT DTL Blood (Blood, Venous) 07/16/2025 7:55 AM CDT 07/16/2025 8:09 AM CDT Jessica DowlingB.S. 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 [address] [place] [phone] PCP - General Family Medicine 04/25/23 documented as of this encounter
--- OUTSIDE RECORDS SUMMARY | 2025-08-09 14:34 | XMS_ITS | Clinical Summary ---
Author Organization [facility] Address [address] [place] [address] Care Team Providers Care Nipple Threader Name Role Phone Renzo Andres M.D. Primary Care Provider [phone] Source Comments Patient records contain information from all sites at [facility]. For routine questions regarding patient records, call [phone] during business hours, M-F 8:00 AM - 5:00 PM Central Time. Record requests for emergency care only can be directed to [phone] at any time.[facility] Allergies Active Allergy Reactions Criticality Noted Date [...] 5-10 mg by mouth at bedtime. Active naloxone (Narcan) 4 mg/actuation nasal spray Administer 1 spray (4 mg total) into nostril(s) once for 1 dose. Use 1 spray in 1 nostril. Repeat with second device in other nostril after 2-3 minutes if no or minimal response. 2 each Active Additional Information Patient not taking.Reported on 08/05/2025 ondansetron ODT (Zofran-ODT) 4 mg disintegrating tablet Dissolve 1-2 tablets (4-8 mg total) in the mouth every 8 (eight) hours as needed for nausea or vomiting. 20 tablet 1 Active prochlorperazine (Compazine) 10 mg tablet Take 1 tablet (10 mg total) by mouth every 6 (six) hours as needed for nausea. 30 tablet 2 Active alum-mag hydroxide-simeth (Maalox) 200-200-20 mg/5 mL suspension Take 30 mL by mouth every 4 (four) hours as needed for indigestion (dyspepsia). 354 mL 1 Active Additional Information Patient not taking.Reported on 08/05/2025 buprenorphine (Butrans) 5 mcg/hourIndicatio ns:Chronic Pain/Nonacute Pain Place 1 patch on the skin once a week Indication: Chronic Pain/Nonacute Pain. 4 patch 08/26/2 025 Active hydroCHLOROthiazi de (HydroDiuril) 25 mg tablet Take 1 tablet (25 mg total) by mouth daily. 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 60 tablet 025 Active pantoprazole (Protonix) 40 mg EC tablet Take 40 mg by mouth daily before morning meal. 08/05/25: increase to 40 mg BID Active predniSONE (Deltasone) 10 mg tablet Take 1 tablet (10 mg total) by mouth as directed. 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 90 tablet 025 2024 Discontinued(R eorder) buprenorphine (Butrans) 5 mcg/hourIndicatio ns:Chronic Pain/Nonacute Pain Place 1 patch on the skin once a week Indication: Chronic Pain/Nonacute Pain. 4 patch 025 2024 Discontinued(R eorder) pantoprazole (Protonix) 40 mg EC tablet Take 1 tablet (40 mg total) by mouth 2 (two) times a day before morning and evening meals. 60 tablet 1 025 2024 Discontinued sennosides-docusa te sodium (Senokot-S) 8.6-50 mg per tablet Take 1 tablet by mouth 2 (two) times a day. 60 tablet 1 025 2024 Discontinued HYDROmorphone (Dilaudid) 1 mg/mL liquidIndications :Chronic Pain/Nonacute Pain Take 2 mL (2 mg total) by mouth every 6 (six) hours as needed for pain Indication: Chronic Pain/Nonacute Pain. 60 mL 025 2024 Discontinued(T herapy completed) hyoscyamine (Levsin) 0.125 mg tablet Take 1 tablet (0.125 mg total) by mouth every 4 (four) hours as needed for bladder spasms. For abdominal pain/cramping/ spasm 30 tablet 1 2024 Discontinued(T herapy completed) OLANZapine (ZyPREXA) 2.5 mg tablet Take 1 tablet (2.5 mg total) by mouth 4 (four) times a day as needed (nausea). 16 tablet 1 2024 Discontinued OLANZapine (ZyPREXA) 5 mg tablet Take 1 tablet (5 mg total) by mouth at bedtime. 30 tablet 1 025 2024 Discontinued(T herapy completed) predniSONE (Deltasone) 10 mg tablet Take 1 tablet (10 mg total) by mouth as directed. 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 90 tablet 3 025 2024 Discontinued pantoprazole (Protonix) 40 mg EC tablet Take 1 tablet (40 mg total) by mouth 2 (two) times a day as needed for heartburn. 025 2024 Discontinued polyethylene glycol-electrolyt es (Golytely) 236-22.74-6.74 -5.86 gram solution Take first portion of the prep at 4pm the evening before and start second portion 3 to 6 hours before and finish 2 hours prior to report time. 4000 mL 025 2024 Discontinued HYDROmorphone (Dilaudid) 2 mg tabletIndications :Chronic Pain/Nonacute Pain Take 1 tablet (2 mg total) by mouth every 6 (six) hours as needed for pain for up to 14 days Indication: Chronic Pain/Nonacute Pain. 28 tablet 025 2024 Active Problems Patient Care Coordination No te [...] RSV: MMR: Local Lab/Provider: Dr. Ermelinda Avitia [address] [address] Problem Noted Date Diagnosed Date Pain Left [...] Encounters Date Type Department Care Team Description 08/09/2025 [facility] [place], [place] [address] [place] [address] Jessica Avila APRN, C.N.P., M.S.N. 08/08/2025 Documentation [facility], Ninth Floor [address] [place] [address] Oli Lynch, P.A.-C. 08/08/2025 Orders Only [facility], Ninth Floor [address] [place] [address] Oli Lynch, P.A.-C. 08/05/2025 3:00 PM CDT Lab Department of Laboratory Medicine and Pathology, [facility], in [place], [place] [address] [place] [address] Arlen James APRN, C.N.P., D.N.P. 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 Elise Pizarro, R.N. 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 Phone Contact (New Symptoms) 07/30/2025 2:13 PM CDT Anesthesia Event Division of Gastroenterology in [place], [place] [address] [place] [address] Renita Patel APRN, GUTTER HANGER 07/30/2025 2:10 PM CDT Ancillary Procedure Department of Gastroenterology 07/30/2025 1:00 PM CDT [facility] in [place], [place] [address] [place] [phone] Carolyn Crowell 07/30/2025 12:58 PM CDT - 07/30/2025 11:59 PM CDT Hospital Encounter Division of Gastroenterology in [place], [place] [address] [place] [phone] Derrick Cruz Jr., M.D., M.S. 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 07/29/2025 11:00 AM CDT [facility] in [place], [place] [address] [place] [phone] Carolyn Crowell 07/29/2025 10:00 AM CDT Office Visit [facility] [place] for Transplantation and Clinical Regeneration in [address] [address] Arlen James APRN, C.N.P., D.N.P. Analia Carter APRN, C.N.P. Lida Olivas, R.N. 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 Arlen James APRN, C.N.PKatalina, D.N.P. 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 Transplant Stem Cell (HCC) (Primary Dx); Bone Marrow Transplant Status (HCC) 07/21/2025 11:00 AM CDT Telemedicine Department of Palliative Care in [place], [place] [address] [place] [phone] Meghan Osorio M.D. 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 07/19/2025 Clinical Communication [facility], Ninth Floor [address] [place] [phone] Jaya Perkins, M.S.N., R.N. 07/19/2025 Refill [facility], [facility], [facility], Ninth Floor [address] [place] [address] Analia Carter APRN, C.N.P. Med Refill 07/17/2025 Orders Only [facility] Transplantation and Clinical Regeneration in [place], [place] [address] [place] [phone] Jessica Rousseau M.B.B.S. 07/16/2025 9:40 AM CDT Comprehensive Visit Division of Gastroenterology in [place], [place] [address] [place] [address] Jessica Avila APRN, C.N.P., M.S.N. Derrick Cruz Jr., M.D., M.S. 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 Becky Hernandez APRN, C.N.P., D.N.P. Lida Olivas, R.N. 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 Nelli Parker, Pharm.D., R.Ph. 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 Med Refill 07/16/2025 Refill [facility], Tenth Floor [address] [place] [address] Jessica Avila APRN C.N.Jean., M.S.N. Med Refill 07/15/2025 Refill [facility] Transplantation and Clinical Regeneration in [place], [place] [address] [place] [address] Lida Olivas, RKatalinaN. Med Refill 07/14/2025 8:00 AM CDT Telemedicine Department of Palliative Care in [place], [place] [address] [place] [address] Monica Tolbert M.D., M.S. Meghan Osorio M.D. 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 Med Refill 07/11/2025 9:45 AM CDT - 07/11/2025 11:59 PM CDT Hospital Encounter [facility], Ninth Floor [address] [place] [address] Jessica Rousseau M.B.B.S. Lucy Stout, R.N., BMT-CN, O.C.N. 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 07/10/2025 Clinical Communication [facility], Ninth Floor [address] [place] [address] Lucy Stout R.N., BMT-CN, O.C.N. 07/08/2025 Clinical Communication [facility] [address] [place] [address] Adrián Arechiga, Pharm.D., R.Ph. Medication Problem 07/08/2025 Clinical Communication [facility] for Transplantation and Clinical Regeneration in [place], [place] [address] [place] [address] Jessica Rousseau M.B.B.S. Phone Contact (New Symptoms ) 07/06/2025 Clinical Communication [facility], Ninth Floor [address] [place] [address] Jessica Avila, KARON, C.N.P., M.S.N. [facility] Follow-up 07/02/2025 8:48 PM CDT - 07/06/2025 12:56 PM CDT Hospital Encounter [facility], Tenth Floor [address] [place] [address] Armond James M.D. Geo Mcdowell M.D., Ph.D. Discharge Disposition: Home or Self Care 07/02/2025 Clinical Communication [facility], Ninth Floor [address] [place] [address] Jaya Perkins M.S.N., R.N. 07/02/2025 Clinical Communication [facility] Transplantation and Clinical Regeneration in [place], [place] [address] [place] [address] Jessica Rousseau M.B.B.S. Phone Contact 07/02/2025 Clinical Communication [facility] Transplantation and Clinical Regeneration in [place], [place] [address] [place] [address] Jessica Rousseau M.B.B.S. 07/02/2025 Clinical Communication [facility] Transplantation and Clinical Regeneration in [place], [place] [address] [place] [address] Jessica Rousseau M.B.B.S. 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 07/01/2025 Orders Only Department of Cardiovascular Medicine in [place], [place] [address] [place] [address] Leighton Andres M.D. 07/01/2025 Clinical Communication [facility] Transplantation and Clinical Regeneration in [place], [place] [address] [place] [address] Uma Goel R.N. 07/01/2025 Clinical Communication [facility] Transplantation and Clinical Regeneration in [place], [place] [address] [place] [address] Jessica Rousseau M.B.B.S. Phone Contact (Abdominal Pain ) 06/30/2025 7:31 PM CDT - 06/30/2025 8:06 PM CDT Emergency [facility] Emergency Department [address] [place] [address] Discharge Disposition: Left Against Medical Advice or Discontinued Care 06/30/2025 4:15 PM CDT - 06/30/2025 7:30 PM CDT Hospital Encounter [facility], Ninth Floor [address] [place] [address] Jimmy Rodriguez M.D. 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 Transplant Stem Cell (HCC); Transplant Bone Marrow Allogeneic (HCC) Discharge Disposition: Home or Self Care 06/30/2025 12:34 PM CDT - 06/30/2025 1:43 PM CDT Hospital Encounter [facility], Ninth Floor [address] [place] [address] Mckenzie Melvin APRN, C.N.P., D.N.P. 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 Nurse Visit 06/30/2025 Clinical Communication Department of Palliative Care in [place], [place] [address] [place] [address] Uma Aly APRN, C.NKatalinaPKatalina, M.S.N. 06/30/2025 Orders Only [facility], Ninth Floor [address] [place] [address] Jimmy Rodriguez M.D. Transplant Bone Marrow Allogeneic (HCC) (Primary Dx) 06/30/2025 Orders Only [facility], Ninth Floor [address] [place] [address] Varghese Fields RFritz Transplant Bone Marrow Allogeneic (HCC) (Primary Dx) 06/30/2025 Orders Only [facility] Transplantation and Clinical Regeneration in [place], [place] [address] [place] [address] Jessica Rousseau M.B.B.SKatalina Transplant Bone Marrow Allogeneic (HCC) (Primary Dx) 06/30/2025 Orders Only [facility] in [place], [place] [address] [place] [address] Jessica Roussaeu M.B.B.S. 06/29/2025 Clinical Communication [facility], Ninth Floor [address] [place] [phone] Antonina Paul R.N. 06/29/2025 Clinical Communication Division of Hematology in [place], [place] [address] [place] [phone] Jessica Rousseau M.B.B.S. 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 Abdominal Pain (Primary Dx); Transplant Stem Cell (HCC); Transplant Bone Marrow Allogeneic (HCC) 06/27/2025 Orders Only [facility], Ninth Floor [address] [place] [address] Carlee Armas APRN, C.N.P., D.N.P., M.S.N. 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 06/26/2025 10:25 AM CDT Ancillary Procedure Department of Gastroenterology 06/26/2025 10:20 AM CDT Ancillary Procedure Department of Gastroenterology 06/24/2025 2:59 PM CDT - 06/27/2025 12:20 PM CDT Hospital Encounter [facility], [facility], [facility], Ninth Floor [address] [place] [address] Dani Diaz M.D. 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 Vomiting; vomiting and abdominal pain 06/23/2025 10:00 AM CDT Office Visit Pedro Naz[facility] Transplantation and Clinical Regeneration in [address] [address] Jessica Rousseau M.B.B.S. 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 Nelli Parker, PharmKatalinaD., R.Ph. Transplant Stem Cell (HCC) (Primary Dx) Discharge Disposition: Home or Self Care 06/23/2025 Clinical Communication [facility] Transplantation and Clinical Regeneration in [place], [place] [address] [place] [phone] Jessica Rousseau M.B.B.S. 06/23/2025 Orders Only [facility] Renzo Andres M.D. 06/22/2025 6:56 PM CDT - 06/22/2025 11:59 PM CDT Hospital Encounter [facility], [facility], Ninth Floor [address] [place] [address] Gabrielle Carlos, P.A.Luz Maria. 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 Phone Contact (Nausea and abdominal pain) 06/22/2025 Results Follow-Up [facility] Transplantation and Clinical Regeneration in [place], [place] [address] [place] [phone] Jessica Rousseau M.B.B.S. BCR/ABL1, p210, mRNA Detection, Reverse Staff Veterinarian-PCR (RT-PCR), Quantitative, Monitoring Chronic Myeloid Leukemia (CML) 06/18/2025 Clinical Communication [facility] Trans[facility] Clinical Regeneration in [place], [place] [address] [place] [phone] Osiris Bass R.N., BMT-CN Phone Contact 06/17/2025 Clinical Communication [facility] Transplantation [facility] Clinical Regeneration in [place], [place] [address] [place] [phone] Jeanna Victor Symptom Assessment 06/15/2025 2:00 PM CDT Office Visit [facility] Transplantation [facility] Clinical Regeneration in [place], [place] [address] [place] [phone] Jessica Rousseau M.B.B.S. 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 Chest Pain 06/13/2025 Orders Only [facility], Ninth Floor [address] [place] [phone] Analia Carter APRN, C.N.P. 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 Kumar, Shaji, M.D. Discharge Disposition: Home or Self Care 06/12/2025 Clinical Communication [facility] for Transplantation and Clinical Regeneration in [place], [place] [address] [place] [phone] Daniela Mercer R.N., BMT-CN Nurse Assessment; Abdominal Pain 06/10/2025 1:20 PM CDT Nurse Only Section of Infectious Diseases in [place], [place] [address] [place] [phone] Jessica Rousseau M.B.B.S. Klingele, Sarah J, R.N. Immunizations 06/10/2025 12:45 PM CDT [facility] in [place], [place] [address] [place] [phone] Ta Medrano 06/08/2025 1:15 PM CDT Internal E-Consult Section of Infectious Diseases in [place], [place] [address] [place] [phone] Arlen James APRN, C.N.P., Heaven.Vanessa Burk P.A.-Satnam. 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); Transplant Stem Cell (HCC) 06/08/2025 Orders Only [facility], Ninth Floor [address] [place] [phone] Analia Carter APRN CKatalinaN.PKatalina 06/08/2025 Clinical Communication [facility] Transplantation [facility] Clinical Regeneration in [place], [place] [address] [place] [address] Jessica Rousseau M.B.B.SKatalina Lab Monitoring 06/08/2025 Clinical Communication [facility] Transplantation [facility] Clinical Regeneration in [place], [place] [address] [place] [address] Jessica Rousseau M.B.B.SKatalina 06/07/2025 11:45 AM CDT - 06/07/2025 11:59 PM CDT Hospital Encounter [facility], Ninth Floor [address] [place] [phone] Analia Carter APRN, C.N.P. Transplant Bone Marrow Allogeneic (HCC) (Primary Dx); Transplant Stem Cell (HCC); Pain Pleuritic Chest; Other Chest Pain; Leukemia Myeloid Chronic BCR/ABL Positive Remission (HCC) Discharge Disposition: Home or Self Care 06/06/2025 Orders Only [facility], Ninth Floor [address] [place] [address] Romina Garsia, RKatalinaNKatalina Transplant Stem Cell (HCC) (Primary Dx) 06/06/2025 Orders Only [facility], Ninth Floor [address] [place] [phone] Analia Carter APRN, C.N.P. Transplant Stem Cell (HCC) (Primary Dx); Pain Pleuritic Chest 06/05/2025 8:36 AM CDT - 06/05/2025 11:59 PM CDT Hospital Encounter Department of Radiology in [address] [phone] Jessica Avila APRN, C.N.P., M.S.N. Transplant Stem Cell (HCC) Discharge Disposition: Home or Self Care 06/05/2025 Documentation [facility] Transplantation [facility] Clinical Regeneration in [place], [place] [address] [place] [phone] Jessica Avila APRN, C.NLuigi., M.S.N. 06/05/2025 Clinical Communication [facility] Transplantation and Clinical Regeneration in [place], [place] [address] [place] [phone] Jessica Rousseau M.B.B.Alisia Phone Contact (CT Results) 06/03/2025 10:00 AM CDT Office Visit [facility] Transplantation [facility] Clinical Regeneration in [place], [place] [address] [place] [phone] Tessa Jesus APRN, C.NLuigi., D.N.P. Jessica Avila APRN, C.N.Jean., M.S.N. Transplant Stem Cell (HCC) (Primary Dx) 06/02/2025 Clinical Communication [facility] Transplantation and Clinical Regeneration in [place], [place] [address] [place] [phone] Transplant, Coordinator, Sanjana Nurse Assessment 06/01/2025 1:39 PM CDT Anesthesia Event Division of Gastroenterology in [place], [place] [address] [place] [phone] Isaias Tolbert APRN, CRNA Pompeian, Rochelle J, M.D. 06/01/2025 1:15 PM CDT Ancillary Procedure Department of Gastroenterology 06/01/2025 12:04 PM CDT - 06/01/2025 11:59 PM CDT Hospital Encounter Division of Gastroenterology in [place], [place] [address] [place] [phone] Lito Pollock P.A.-C. Ashkar, Motaz H, M.B.B.S., M.S. 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 05/29/2025 Orders Only [facility], [facility], Ninth Floor [address] [place] [phone] Lito Pollock P.A.-C. 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 Discharge Disposition: Home or Self Care 05/28/2025 Orders Only [facility], Ninth Floor [address] [place] [phone] Giselle Jean R.N. Transplant Stem Cell (HCC) (Primary Dx) 05/27/2025 Orders Only Department of Palliative Care in [place], [place] [address] [place] [address] Felicia Watt APRN, C.N.P., M.S.N. 05/26/2025 Clinical Communication [facility] in [place], [place] [address] [place] [address] Jessica Rousseau M.B.B.S. 05/26/2025 Clinical Communication Section of Infectious Diseases in [place], [place] [address] [place] [phone] Jennifer Marx R.N. Prescreen Immunization Review 05/25/2025 2:00 PM CDT Office Visit Department of Palliative Care in [place], [place] [address] [place] [address] Felicia Watt APRN C.N.P., M.S.N. Pain Leg Bilateral (Primary Dx); Nausea; Fatigue; Insomnia; Anxiety; Palliative Care 05/25/2025 1:45 PM CDT [facility] in [place], [place] [address] [place] [phone] Ta Medrano 05/20/2025 9:30 AM CDT Office Visit [facility] Transplantation and Clinical Regeneration in [place], [place] [address] [place] [phone] Lito Pollock P.A.-C. Olney, Tammy L, KARON, C.N.P., D.N.P. Lida Oliavs, R.N. 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); Transplant Stem Cell (HCC) 05/20/2025 9:00 AM CDT Office Visit [facility] Transplantation [facility] Clinical Regeneration in [place], [place] [address] [place] [phone] Lito Pollock P.A.-C. Braun, Jade L, PharmKatalinaD., R.Ph. Transplant Bone Marrow Allogeneic (HCC) (Primary Dx) Discharge Disposition: Home or Self Care 05/20/2025 Clinical Communication [facility] Transplantation [facility] Clinical Regeneration in [place], [place] [address] [place] [phone] Jessica Rousseau M.B.B.S. 06/25 appts 05/17/2025 1:59 PM CDT - 05/17/2025 5:26 PM CDT Hospital Encounter [facility], [facility], [facility], Ninth Floor [address] [place] [phone] Renita Potts APRN, C.N.P., D.N.P. Transplant Bone Marrow Allogeneic (HCC) (Primary Dx); Leukemia Myeloid Chronic BCR/ABL Positive Remission (HCC) 05/17/2025 Clinical Communication [facility] Transplantation and Clinical Regeneration in [place], [place] [address] [place] [address] Ladonna Constantino R.N. 05/17/2025 Orders Only [facility], [facility], [facility], Ninth Floor [address] [place] [address] Ladonna Constantino R.N. 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) 05/11/2025 Clinical Communication [facility] in [place], [place] [address] [place] [address] Arely Taylor R.N. Lab Monitoring (05/08/2025) from Last 3 Months Immunizations Immunization Administration [...] things needed for daily living? No 07/02/2025 [facility] Utilities Answer Date Recorded In the past 12 months has th MTailor electric, gas, oil, or water company threatened [...] Sex Assigned at Female 12/26/2018 8:37 PM SEARCH ENGINE OPTIMIZER Legal Sex Female 2:43 PM SEARCH ENGINE OPTIMIZER Gender Identity Female 12/26/2018 8:37 PM SEARCH ENGINE OPTIMIZER Sexual Orientation Choose not to disclose 2020 3:46 PM CDT Last Filed Vital Signs Vital Sign Reading Time Taken Comments Blood Pressure 128/88 08/05/2025 1:50 PM CDT Pulse 111 08/05/2025 1:50 PM CDT Temperature 36.8 C (98.2 F) 08/05/2025 1:50 PM CDT Respiratory Rate 13 07/30/2025 3:00 PM CDT Oxygen Saturation 98% 07/30/2025 3:00 PM CDT Inhaled Oxygen Concentration - - Weight 105 kg (230 lb 11.4 oz) 08/05/2025 1:48 P M CDT Height 172.9 cm (5' 8.07) 07/29/2025 9:59 AM CD T Body Mass Index 35.01 07/29/2025 9:59 AM CDT Plan of Treatment Upcoming Encounters Date Type Department Care Team (Late st Contact Info) Description 08/11/2025 8:00 AM CDT Office Visit Department of Palliative Care in [place], [place] [address] [place] [phone] Meghan Osorio M.D. [address] [place] [phone] 08/11/2025 9:00 AM CDT Nurse Only Section of Infectious Diseases in [place], [place] [address] [place] [phone] Jessica Rousseau M.B.B.S. [address] [place] [phone] 08/11/2025 1:00 PM CDT Clinical Support Department of Palliative Care in [place], [place] [address] [place] [phone] Uma Aly APRN, C.NKatalinaP., M.S.N. [address] [place] [phone] 08/13/2025 10:00 AM CDT Lab Department of Laboratory Medicine and Pathology, [facility], in [place], [place] [address] [place] [phone] Jessica Rousseau M.B.B.S. [address] [place] [phone] 08/13/2025 10:30 AM CDT Office Visit [facility] Trans[facility] Clinical Regeneration in [place], [place] [address] [place] [phone] Jessica Rousseau M.B.B.S. [address] [place] [phone] Nelli Parker, Pharm.D., R.Ph. [address] [place] [phone] 08/13/2025 11:00 AM CDT Nurse Only [facility] Transplantation and Clinical Regeneration in [place], [place] [address] [place] [phone] Jessica Rousseau M.B.B.S. [address] [place] [phone] 08/13/2025 11:30 AM CDT Office Visit [facility] Transplantation and Clinical Regeneration in [place], [place] [address] [place] [phone] Jessica Rousseau M.B.B.S. [address] [place] [phone] 08/13/2025 3:00 PM CDT Clinical Support Department of Palliative Care in [place], [place] [address] [place] [phone] Meghan Osorio M.D. [address] [place] [phone] Mary Garcia M.S.W., L.I.C.S.W. [address] [place] [phone] 08/25/2025 8:00 AM CDT Telemedicine [facility] Transplantation and Clinical Regeneration in [place], [place] [address] [place] [phone] Jessica Rousseau M.B.B.S. [address] [place] [phone] Health Maintenance Due Date Last Done Comments Dental Prophylaxis 1989 HIV Screening 1989 Visit: Medicare Annual Wellness 1989 Dilated Eye Exam 11/05/2009 05/06/2009 Cervical/Vaginal Cancer Screening 10/15/2024 10/15/2019, 10/15/2019, 11/25/2013 Controlled Substance Agreement 04/05/2025 Controlled Substance Monitor ing (UDS) 04/05/2025 PEG assessment for Opioid therapy 04/05/2025 Vaccine Post BMT: HPV (Garda jaylen) 3 Doses (#1) 06/09/2025 Vaccine Post BMT: CpG (Hepli fozia) 2 Doses (#2) 07/07/2025 06/10/2025 COVID-19 Vaccine (2024-2 6 season) 2025 10/31/2021, 03/30/2021, 03/02/2021 Influenza Vaccine (#1) 2025 9, [...] Doses (#2) 12/09/2025 06/10/2025 Urinalysis 01/02/2026 07/02/2025, 12/21, 11/04/2024, Additional history exists Generalized Anxiety (HERMINIO-7) 03/23/2026 03/23/2025 Spirometry with DLCO or PFT 03/23/2026 03/23/2025, 1 01/06/2024 Lipid (Cholesterol) Screening 03/24/2026, 06/23/2024, 09/08/2022 Vitamin D Testing 07/06/2026 07/06/2025, , 11/04/2024, Additional history exists Controlled Substance Monitor ing (PHQ-9) 07/08/2026 07/08/2025 Creatinine Level (Kidney Fun ction Test) 08/05/2026 08/05/2025, 07/29/2025, 07/22/2025, Additional history exists Fasting Glucose for Diabetes Screening 08/05/2026 08/05/2025, 07/29/2025, 07/22/2025, Additional history exists Potassium Level 08/05/2026 08/05/2025, 07/20, 07/22/2025, Additional history exists Sodium Level 08/05/2026 08/05/2025, 07/20, 07/22/2025, Additional history exists Hepatitis B Screening Discontinued 12/12/2018 Hepatitis C Screening Completed 12/12/2018 Depression Monitoring (PHQ-9 for quality tracking) Completed 03/23/2025 Opioid Risk Tool (ORT) Completed 04/21/2025 Glucose Test for Med Monitoring Discontinued 08/05/2025, 07/29/2025, 07/22/2025, Additional history exists Procedures Procedure Name Priority Date/Time Associated Diagnosis Comments BCR/ABL1 QUALITATIVE DIAGNOSTIC ASSAY WITH REFLEX TO BCR/ABL1 P190 QUANT OR QUAL ASSAY Routine 08/05/2025 3:23 PM CDT 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) 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) BACTERIA / CELSO CULTURE, BLOOD Routine 08/05/2025 3:23 PM CDT 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) 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) BACTERIA / CELSO CULTURE, BLOOD Routine 08/05/2025 3:23 PM CDT 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) 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) LACTATE DEHYDROGENASE (LD), S Routine 08/05/2025 1:42 PM CDT Transplant Stem Cell (HCC) Bone Marrow Transplant Status (HCC) SODIUM, S/P Routine 08/05/2025 1:42 PM CDT Transplant Stem Cell (HCC) Bone Marrow Transplant Status (HCC) POTASSIUM, S/P Routine 08/05/2025 1:42 PM CDT Transplant Stem Cell (HCC) Bone Marrow Transplant Status (HCC) MAGNESIUM, S Routine 08/05/2025 1:42 PM CDT Transplant Stem Cell (HCC) Bone Marrow Transplant Status (HCC) GLUCOSE, FASTING, S/P Routine 08/05/2025 1:42 PM CDT Transplant Stem Cell (HCC) Bone Marrow Transplant Status (HCC) CREATININE WITH EGFR, S/P Routine 08/05/2025 1:42 PM CDT Transplant Stem Cell (HCC) Bone Marrow Transplant Status (HCC) CBC NO CALL BACK, REFLEX T/S Routine 08/05/2025 1:42 PM CDT Transplant Stem Cell (HCC) Bone Marrow Transplant Status (HCC) CALCIUM, TOT, S/P Routine 08/05/2025 1:4 2 PM CDT Transplant Stem Cell (HCC) Bone Marrow Transplant Status (HCC) BUN (BLOOD UREA NITROGEN), S/P Routine 08/05/2025 1:42 PM CDT Transplant Stem Cell (HCC) Bone Marrow Transplant Status (HCC) BILIRUBIN, TOT, S/P Routine 08/05/2025 1 :42 PM CDT Transplant Stem Cell (HCC) Bone Marrow Transplant Status (HCC) ASPARTATE AMINOTRANSFERASE (AST), S/P Routine 08/05/2025 1:42 PM CDT Transplant Stem Cell (HCC) Bone Marrow Transplant Status (HCC) ALANINE AMINOTRANSFERASE (ALT), S/P Routine 08/05/2025 1:42 PM CDT Transplant Stem Cell (HCC) Bone Marrow Transplant Status (HCC) ALKALINE PHOSPHATASE, S/P Routine 08/05/2025 1:42 PM CDT Transplant Stem Cell (HCC) Bone Marrow Transplant Status (HCC) ALBUMIN, S/P Routine 08/05/2025 1:42 PM CDT Transplant Stem Cell (HCC) Bone Marrow Transplant Status (HCC) EBV DNA DETECT/QUANT, P Routine 08/05/2025 1:42 PM CDT Transplant Stem Cell (HCC) Bone Marrow Transplant Status (HCC) SURGICAL PATHOLOGY Routine 07/30/2025 2: 34 PM CDT GASTROENTEROLOGY IMAGE EXAM Routine 07/30/2025 2:10 PM CDT COLONOSCOPY Routine 07/30/2025 2:06 PM CDT 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) COLONOSCOPY RESTRICTED Routine 2:06 PM CDT 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) LACTATE DEHYDROGENASE (LD), S Routine 07/29/2025 9:47 AM CDT Transplant Stem Cell (HCC) Bone Marrow Transplant Status (HCC) SODIUM, S/P Routine 07/29/2025 9:47 AM CDT Transplant Stem Cell (HCC) Bone Marrow Transplant Status (HCC) POTASSIUM, S/P Routine 07/29/2025 9:47 AM CDT Transplant Stem Cell (HCC) Bone Marrow Transplant Status (HCC) MAGNESIUM, S Routine 07/29/2025 9:47 AM CDT Transplant Stem Cell (HCC) Bone Marrow Transplant Status (HCC) GLUCOSE, FASTING, S/P Routine 07/29/2025 9:47 AM CDT Transplant Stem Cell (HCC) Bone Marrow Transplant Status (HCC) CREATININE WITH EGFR, S/P Routine 07/29/2025 9:47 AM CDT Transplant Stem Cell (HCC) Bone Marrow Transplant Status (HCC) CBC NO CALL BACK, REFLEX T/S Routine 07/29/2025 9:47 AM CDT Transplant Stem Cell (HCC) Bone Marrow Transplant Status (HCC) CALCIUM, TOT, S/P Routine 07/29/2025 9:4 7 AM CDT Transplant Stem Cell (HCC) Bone Marrow Transplant Status (HCC) BUN (BLOOD UREA NITROGEN), S/P Routine 07/29/2025 9:47 AM CDT Transplant Stem Cell (HCC) Bone Marrow Transplant Status (HCC) BILIRUBIN, TOT, S/P Routine 07/29/2025 9 :47 AM CDT Transplant Stem Cell (HCC) Bone Marrow Transplant Status (HCC) ASPARTATE AMINOTRANSFERASE (AST), S/P Routine 07/29/2025 9:47 AM CDT Transplant Stem Cell (HCC) Bone Marrow Transplant Status (HCC) ALANINE AMINOTRANSFERASE (ALT), S/P Routine 07/29/2025 9:47 AM CDT Transplant Stem Cell (HCC) Bone Marrow Transplant Status (HCC) ALKALINE PHOSPHATASE, S/P Routine 07/29/2025 9:47 AM CDT Transplant Stem Cell (HCC) Bone Marrow Transplant Status (HCC) ALBUMIN, S/P Routine 07/29/2025 9:47 AM CDT Transplant Stem Cell (HCC) Bone Marrow Transplant Status (HCC) EBV DNA DETECT/QUANT, P Routine 07/29/2025 9:47 AM CDT Transplant Stem Cell (HCC) Bone Marrow Transplant Status (HCC) GLUCOSE, FASTING, S/P Routine 07/22/2025 8:47 AM CDT 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) Transplant Stem Cell (HCC) Abnormal Finding Of Blood Chemistry Unspecified CBC NO CALL BACK, REFLEX T/S Routine 07/22/2025 8:47 AM CDT 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) Transplant Stem Cell (HCC) LACTATE DEHYDROGENASE (LD), S Routine 07/22/2025 8:46 AM CDT 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) Transplant Stem Cell (HCC) SODIUM, S/P Routine 07/22/2025 8:46 AM CDT 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) Transplant Stem Cell (HCC) POTASSIUM, S/P Routine 07/22/2025 8:46 AM CDT 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) Transplant Stem Cell (HCC) MAGNESIUM, S Routine 07/22/2025 8:46 AM CDT 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) Transplant Stem Cell (HCC) CREATININE WITH EGFR, S/P Routine 07/22/2025 8:46 AM CDT 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) Transplant Stem Cell (HCC) CALCIUM, TOT, S/P Routine 07/22/2025 8:4 6 AM CDT 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) Transplant Stem Cell (HCC) BUN (BLOOD UREA NITROGEN), S/P Routine 07/22/2025 8:46 AM CDT 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) Transplant Stem Cell (HCC) BILIRUBIN, TOT, S/P Routine 07/22/2025 8 :46 AM CDT 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) Transplant Stem Cell (HCC) ASPARTATE AMINOTRANSFERASE (AST), S/P Routine 07/22/2025 8:46 AM CDT 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) Transplant Stem Cell (HCC) ALANINE AMINOTRANSFERASE (ALT), S/P Routine 07/22/2025 8:46 AM CDT 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) Transplant Stem Cell (HCC) ALKALINE PHOSPHATASE, S/P Routine 07/22/2025 8:46 AM CDT 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) Transplant Stem Cell (HCC) ALBUMIN, S/P Routine 07/22/2025 8:46 AM CDT 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) Transplant Stem Cell (HCC) EBV DNA DETECT/QUANT, P Routine 07/22/2025 8:46 AM CDT 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) Transplant Stem Cell (HCC) CMV DNA DETECT/QUANT, P Routine 07/22/2025 8:46 AM CDT 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) Transplant Stem Cell (HCC) LACTATE DEHYDROGENASE (LD), S Routine 07/16/2025 7:56 AM CDT Leukemia Myeloid Chronic BCR/ABL Positive Remission (HCC) Transplant Bone Marrow Allogeneic (HCC) Nausea [facility] GLU[facility]SE, FASTING, S/P Routine 07/16/2025 7:56 AM CDT Leukemia Myeloid Chronic BCR/ABL Positive Remission (HCC) Transplant Bone Marrow Allogeneic (HCC) Nausea Corticosteroid Treatment [employer] System[facility] CBC NO CALL BACK, REFLEX T/S Routine 07/16/2025 7:56 AM CDT Leukemia Myeloid Chronic BCR/ABL Positive Remission (HCC) Transplant Bone Marrow Allogeneic (HCC) Nausea Corticosteroid Treatment [employer] [facility] BILIRUBIN, TOT, S/P Routine 07/16/2025 7 :56 AM CDT Leukemia Myeloid Chronic BCR/ABL Positive Remission (HCC) Transplant Bone Marrow Allogeneic (HCC) Nausea Corticosteroid Treatment [facility] ASPARTATE AMINOTRANSFERASE (AST), S/P Routine 07/16/2025 7:56 AM CDT Leukemia Myeloid Chronic BCR/ABL Positive Remission (HCC) Transplant Bone Marrow Allogeneic (HCC) Nausea Corticosteroid Treatment [facility] EBV DNA DETECT/QUANT, P Routine 07/16/2025 7:56 AM CDT Leukemia Myeloid Chronic BCR/ABL Positive Remission (HCC) Transplant Bone Marrow Allogeneic (HCC) Nausea [facility]orticosteroid Treatment [facility] CMV DNA DETECT/QUANT, P Routine 07/16/2025 7:56 AM CDT Leukemia Myeloid Chronic BCR/ABL Positive Remission (HCC) Transplant Bone Marrow Allogeneic (HCC) Nausea Corticosteroid Treatment 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 Elevator 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 Systemic SODIUM, S/P Routine 07/16/2025 7:55 AM CDT Leukemia Myeloid Chronic BCR/ABL Positive Remission (HCC) Transplant Bone Marrow Allogeneic (HCC) Nausea Corticosteroid Treatment [facility] Systemic POTASSIUM, S/P Routine 07/16/2025 7:55 AM CDT Leukemia Myeloid Chronic BCR/ABL Positive Remission (HCC) Transplant Bone Marrow Allogeneic (HCC) Nausea Corticosteroid Treatment [facility] Systemic MAGNESIUM, S Routine 07/16/2025 7:55 AM CDT Leukemia Myeloid Chronic BCR/ABL Positive Remission (HCC) Transplant Bone Marrow Allogeneic (HCC) Nausea Corticosteroid Treatment 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 Elevator Constructor Systemic CREATININE WITH EGFR, S/P Routine 07/16/2025 7:55 AM CDT Leukemia Myeloid Chronic BCR/ABL Positive Remission (HCC) Transplant Bone Marrow Allogeneic (HCC) Nausea Corticosteroid Treatment Hydraulic Elevator Constructor Systemic CALCIUM, TOT, S/P Routine 07/16/2025 7:5 5 AM CDT Leukemia Myeloid Chronic BCR/ABL Positive Remission (HCC) Transplant Bone Marrow Allogeneic (HCC) Nausea Corticosteroid Treatment [facility] Systemic BUN (BLOOD UREA NITROGEN), S/P Routine 07/16/2025 7:55 AM CDT Leukemia Myeloid Chronic BCR/ABL Positive Remission (HCC) Transplant Bone Marrow Allogeneic (HCC) Nausea Corticosteroid Treatment [facility] Systemic ALANINE AMINOTRANSFERASE (ALT), S/P Routine 07/16/2025 7:55 AM CDT Leukemia Myeloid Chronic BCR/ABL Positive Remission (HCC) Transplant Bone Marrow Allogeneic (HCC) Nausea Corticosteroid Treatment [facility] Systemic ALKALINE PHOSPHATASE, S/P Routine 07/16/2025 7:55 AM CDT Leukemia Myeloid Chronic BCR/ABL Positive Remission (HCC) Transplant Bone Marrow Allogeneic (HCC) Nausea Corticosteroid Treatment [facility] Systemic ALBUMIN, S/P Routine 07/16/2025 7:55 AM CDT Leukemia Myeloid Chronic BCR/ABL Positive Remission (HCC) Transplant Bone Marrow Allogeneic (HCC) Nausea Corticosteroid Treatment Hydraulic Elevator Constructor Systemic TROPONIN T, 2H/6H REFLEX, 5TH GEN, [...] CELL SORT Routine 06/15/2025 9:50 AM CDT OR DX BONE MARROW BX & ASPIR Routine 06/15/2025 9:45 AM CDT 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) Abnormal Finding Of Blood Chemistry Unspecified Follow Up Examination Following Bone Marrow Transplant Corticosteroid Treatment Hydraulic Elevator Constructor Systemic HEMATOPATHOLOGY Routine 06/15/2025 12:00 AM CDT [...] W/HPV CO-TEST SCREEN Routine 10/15/2019 11:05 AM SEARCH ENGINE OPTIMIZER Pap Smear Examination HCV AB SCRN W/REFLEX TO HCV PCR, S Timed 12/12/2018 5:58 PM SEARCH ENGINE OPTIMIZER HEPATITIS B SURFACE ANTIGEN Timed 12/12/2018 5:58 PM SEARCH ENGINE OPTIMIZER from Last 3 Months or Most Recently Relevant to Health Maintenance Results * BCR/ABL1 Qualitative Diagnostic Assay with [...] transcripts was evaluated using a qualitative, reverse pathology transcriptionist PCR-based assay. The assay detects nearly all published and theoretical BCR/ABL1 fusion forms including the common e13/e14-a2 (p210) and e1-a2 (p190) transcripts, as well as other rarer variants (e.g. e19-a2 (p230), e13/e14-a3, e1-a3, etc.). The limit of detection for this assay is 0.1%. Please contact the lab at [phone] with questions or if additional testing is required. See [facility] Test Catalog for additional method details. Signing Pathologist: Deidra Pruitt M.D. 08/07/2025 3:10 PM CDT DTL Comment: ----ADDITIONAL INFORMATION---- This test was developed and its performance characteristics determined by [facility] in a manner consistent with CLIA requirements. This test has not been cleared or approved by the U.S. Food and Drug Administration. Blood (Blood, Peripheral Draw) 08/05/2025 3:23 PM CDT 08/05/2025 3:42 PM CDT us Arlen James APRN, C.N.P., D.N.P. LAB GENETIC TE STING Final Result [facility] [address] [place] [address], [facility] DTL [address] [place] [address] * EBV DNA Detect/Quant (08/05/2025 1:42 PM CDT) Only the most recent of5 resultswithin the time period is included. [facility] EBV DNA Detect/Quant, P Undetected Undetected IU/mL 08/06/2025 1:42 PM CDT [facility] Comment: Result in log IU/mL is Undetected. ----ADDITIONAL INFORMATION---- The quantification range of this assay is 35 to 100,000,000 IU/mL (1.54 log to 8.00 log IU/mL). Testing was performed using the lucrecia EBV test ([employer] Blood (Blood, Venous) 08/05/2025 1:42 PM CDT 08/05/2025 5:31 PM CDT Satnam Horne APRN.N.P., D.N.P. LAB MICROBIOLO GY - BLOOD ORDERABLES Final Result [facility] [place] [address] [place] [address] [facility] [address] [place] [address] [place] [address] * (ABNORMAL) CBC no call back, reflex T/S HGB <8 (08/05/2025 1:42 PM CDT) Only the most recent of16 resultswithin the time period is included. [facility] Hemoglobin 12.4 11.6 - 15.0 g/dL 08/05/2025 [...] D.N.P. LAB BLOOD NON ADD-ON Final Result [facility] [address] [place] [address], [facility] DTL [facility] [address] [place] [address] [facility] [address] [place] [address] * BUN (Blood Urea Nitrogen) (08/05/2025 1:42 PM CDT) Only the most recent of7 resultswithin the time period is included. BUN (Blood Urea Nitrogen), S 11 6 - 21 mg/dL 08/05/2025 2:48 PM CDT DTL Blood (Blood, Venous) 08/05/2025 1:42 PM CDT 08/05/2025 2:15 PM CDT Arlen James APRN, C.N.P., D.N.P. LAB BLOOD ADD- ON Final Result Performing Organization Address City/[facility]/ZIP Co de Phone Number [facility] [address] [place] [address] * ALT (Alanine Aminotransferase) (08/05/2025 1:42 PM CDT) Only the most recent of7 resultswithin the time period is included. Alanine Aminotransferase (ALT), S 36 7 - 45 U/L 08/05/2025 2:48 PM CDT DTL Blood (Blood, Venous) 08/05/2025 1:42 PM CDT 08/05/2025 2:15 PM CDT Arlen James APRN, C.N.P., D.N.P. LAB BLOOD ADD- ON Final Result Performing Organization Address [place]/[facility] Co de Phone Number [facility] [address] [facility] 200 [place] [address] * AST (Aspartate Aminotransferase) (08/05/2025 1:42 PM CDT) Only the most recent of7 resultswithin the time period is included. Aspartate Aminotransferase (AST), P 22 8 - 43 U/L 08/05/2025 2:06 PM CDT [facility] Blood (Blood, Venous) 08/05/2025 1:42 PM CDT 08/05/2025 1:48 PM CDT Arlen James APRN, C.N.P., D.N.P. LAB BLOOD ADD- ON Final Result Performing Organization Address City/[facility]/ZIP Co de Phone Number [facility] 200 [place] [address], [facility] METH [facility] [address] [place] [address] * Sodium (08/05/2025 1:42 PM CDT) Only the most recent of7 resultswithin the time period is included. Sodium, S 139 135 - 145 mmol/L 08/05/2025 2:48 PM CDT DTL Blood (Blood, Venous) 08/05/2025 1:42 PM CDT 08/05/2025 2:15 PM CDT Arlen James APRN C.N.P., D.N.P. LAB BLOOD ADD- ON Final Result Performing Organization Address City/[facility]/ZIP Co de Phone Number [facility] 200 [place] [address], [facility] 200 [place] [address] * Potassium (08/05/2025 1:42 PM CDT) Only the most recent of7 resultswithin the time period is included. Potassium, S 3.9 3.6 - 5.2 mmol/L 08/05/2025 2:48 PM CDT DT Blood (Blood, Venous) 08/05/2025 1:42 PM CDT 08/05/2025 2:15 PM CDT Arlen James APRN, C.N.P., D.N.P. LAB BLOOD ADD- ON Final Result Performing Organization Address City/[facility]/ZIP Co de Phone Number [facility] 200 [place] [address], [facility] 200 [place] [address] * Alkaline Phosphatase (08/05/2025 1:42 PM CDT) Only the most recent of7 resultswithin the time period is included. Alkaline Phosphatase, S 93 35 - 104 U/L 08/05/2025 2:48 PM CDT DT Blood (Blood, Venous) 08/05/2025 1:42 PM CDT 08/05/2025 2:15 PM CDT Arlen James APRN C.N.P., D.N.P. LAB BLOOD ADD- ON Final Result [facility] [address] 200 [place] [address] * Magnesium (08/05/2025 1:42 PM CDT) Only the most recent of15 resultswithin the time period is included. [facility] Magnesium, S 2.2 1.7 - 2.3 mg/dL 08/05/2025 2:48 PM CDT DT Blood (Blood, Venous) 08/05/2025 1:42 PM CDT 08/05/2025 2:15 PM CDT Arlen James APRN C.N.P., D.N.P. LAB BLOOD ADD- ON Final Result Performing Organization Address City/[facility] Co de Phone Number [facility] [address] [place] [address] * LD (Lactate Dehydrogenase) (08/05/2025 1:42 PM CDT) Only the most recent of8 resultswithin the time period is included. [facility] Deanna LD 174 122 - 222 U/L 08/05/2025 2:44 PM CDT DTL Blood (Blood, Venous) 08/05/2025 1:42 PM CDT 08/05/2025 2:20 PM CDT Arlen James APRN, C.N.P., D.N.P. LAB BLOOD NON ADD-ON Final Result Performing Organization Address City/[facility]/ZIP Co de Phone Number [facility] [address] [place] [address], [facility] 200 [place] [address] * (ABNORMAL) Glucose, Fasting (08/05/2025 1:42 PM CDT) Only the most recent of7 resultswithin the time period is included. Glucose, P 159(H) 70 - 100 mg/dL 08/05/2025 3:56 PM CDT DTL Last Intake 14 hr 08/05/2025 2:15 PM CDT DTL Blood (Blood, Venous) 08/05/2025 1:42 PM CDT 08/05/2025 2:15 PM CDT Arlen James APRN, C.N.P., D.N.P. LAB BLOOD NON ADD-ON Final Result Performing Organization Address City/[facility] Co de Phone Number [address] [address] [address] [address] * Creatinine with Estimated GFR (08/05/2025 1:42 PM CDT) Only the most recent of7 resultswithin the time period is included. Creatinine 0.89 0.59 - 1.04 mg/dL 08/05/2025 2:48 PM CDT DTL Estimated GFR (eGFR) 86 >=60 mL/min/BSA 08/05/2025 2:48 PM CDT DTL Comment: Estimated GFR calculated using the 2020 CKD_EPI creatinine equation. Blood (Blood, Venous) 08/05/2025 1:42 PM CDT 08/05/2025 2:15 PM CDT Arlen James APRN, C.N.P., D.N.P. LAB BLOOD ADD- ON Final Result Performing Organization Address City/[facility]/ZIP Co de Phone Number [facility] 200 [place] [address], [facility] [address] [address] * Calcium, Total (08/05/2025 1:42 PM CDT) Only the most recent of7 resultswithin the time period is included. Calcium, Total, S 9.2 8.6 - 10.0 mg/dL 08/05/2025 2:48 PM CDT DTL Blood (Blood, Venous) 08/05/2025 1:42 PM CDT 08/05/2025 2:15 PM CDT Arlen James APRN, C.N.P., D.N.P. LAB BLOOD ADD- ON Final Result [facility] [address] DTL [facility] 200 [place] [address] * Bilirubin, Total (08/05/2025 1:42 PM CDT) Only the most recent of7 resultswithin the time period is included. Bilirubin, Total, P 0.3 0.0 - 1.2 mg/dL 08/05/2025 2:06 PM CDT [facility] Blood (Blood, Venous) 08/05/2025 1:42 PM CDT 08/05/2025 1:48 PM CDT Arlen James APRN, C.N.P., D.N.P. LAB BLOOD ADD- ON Final Result [facility] 200 [place] [address], [facility] METH [facility] 200 [place] [address] * Albumin (08/05/2025 1:42 PM CDT) Only the most recent of7 resultswithin the time period is included. Albumin, S 4.5 3.5 - 5.0 g/dL 08/05/2025 2:48 PM CDT DTL Blood (Blood, Venous) 08/05/2025 1:42 PM CDT 08/05/2025 2:15 PM CDT us Jamari Horne APRNNLuigi., D.N.P. LAB BLOOD ADD- ON Final Result [facility] [address] [place] [address], [place] DTL [facility] [address] [place] [address] * Surgical Pathology (07/30/2025 2:34 PM CDT) Only the most recent of3 resultswithin the time period is included. 08/05/2025 1:30 PM CDT DTL Report electronically [...] en toto in cassette A1. Grossed by [facility] B: Received in formalin labeled with the patient's name, medical record number, and colon, transverse colon is a 0.3 x 0.2 x 0.1 cm paletan-pink irregular soft tissue. The specimen is submitted en toto in cassette B1. Gross[facility] by [facility] 08/05/2025 1:30 PM CDT DTL Disclaimer This test was developed using an analyte specific reagent. Its performance characteristics were determined by [facility] in a manner consistent with CLIA requirements. [...] Polyp (Colon) 07/30/2025 2:3 6 PM CDT us Silvano Barnes LAB SURG PATH ORDERABL ES Final Result Performing Organization Address City/[facility] Co de Phone Number [facility] [address] [place] [address], [facility] DTL [address] [place] [address] * Colonoscopy-Gastroenterology Image Exam (07/30/2025 2:10 PM CDT) Only the most recent of4 resultswithin the time period is included. 07/30/2025 2:06 PM CDT Narrative [facility] - 07/30/2025 2:49 PM CDT This order has been created and auto-finalized to support the import of images acquired without order. The clinical documentation to support these images can be found on the encounter that produced images. Provider Not In System IMG NON RAD IMAGING PROCE DURES Final Result Performing Organization Address City/[facility] Co de Phone Number [facility] NA * Colonoscopy (07/30/2025 2:06 PM CDT) 07/30/2025 2:06 PM CDT Impressions [employer] - 07/30/2025 2:47 PM CDT Post-op Diagnoses: - Preparation of the colon was inadequate. - One 2 mm polyp in the transverse colon, removed with a cold biopsy forceps. Resected and retrieved. - Biopsies were taken with a cold forceps for histology in the entire colon. Narrative [employer] - 07/30/2025 2:47 PM CDT Gonda [...] bowel preparation was evaluated using the BBPS (Lynn Bowel Preparation Scale) with scores of: Right [...] electronically. Number of Addenda: 0 us Derrick Cruz Jr., M.D., M.S. GI PROCEDUR E ORDERABLES Final Result [facility] * CMV DNA Detect / Quant, Plasma (07/22/2025 8:46 AM CDT) Only the most recent of6 resultswithin the time period is included. CMV DNA Detect/Quant, P Undetected Undetected IU/mL 07/23/2025 11:24 AM CDT [facility] Comment: Result in log IU/mL is Undetected. ----ADDITIONAL INFORMATION---- The quantification range of this assay is 35 to 10,000,000 IU/mL (1.54 log to 7.00 log IU/mL). Testing was performed using the lucrecia CMV test ([employer] Blood (Blood, Venous) 07/22/2025 8:46 AM CDT 07/22/2025 11:06 AM CDT us Becky Hernandez APRN, C .N.P., D.N.P. LAB MICROBIOLOGY - BLOOD ORDERABLES Final Result Performing Organization Address City/[facility]/ZIP Co de Phone Number [facility] [place] [address] [place] [address] [facility] [address] [place] [address] [place] [address] * Troponin T, 2 Hour with 6 Hour Reflex, 5th Gen (07/06/2025 10:24 AM CDT) Pathologist [facility] Troponin T, 2 hr, 5th gen <6 <=10 ng/L 07/06/2025 11:51 AM CDT DTL 2H Delta 0 ng/L 07/06/2025 11:51 AM CDT DTL Comment:6 hour collection no t indicated. 2H Delta Interp Not Changing 07/06/2025 11:51 AM CDT DTL Blood 07/06/2025 10:2 4 AM CDT 07/06/2025 10:48 AM CDT Jessica Avila APRN, C.N.P., M.S.N. LAB BLOOD T ROPONIN Final Result Performing Organization Address [place]/[facility] Co de Phone Number [facility] [address] [place] [address] * Troponin T, Baseline with 2 Hour/6 Hour Reflex Biomarker Panel (07/06/2025 8:01 AM CDT) Pathologist [facility] Troponin T, Baseline, 5th gen <6 <=10 ng/L 07/06/2025 9:32 AM CDT DTL Blood (Blood, Venous) 07/06/2025 8:01 AM CDT 07/06/2025 8:50 AM CDT Jamari Basilio APRNNLuigi., M.S.N. LAB BLOOD T ROPONIN Final Result Performing Organization Address [place]/[facility] de Phone Number [facility] 200 [place] [address] * ECG 12 Lead (07/06/2025 7:57 AM CDT) Only the most recent of3 resultswithin the time period is included. Ventricular Rate ECG/Min 73 BPM MUSE OR Interval 174 ms MUSE QRSD Interval 82 ms MUSE QT Interval 380 ms MUSE QTC Interval 418 ms MUSE P [place] 51 degrees MUSE R [place] 6 degrees MUSE T Wave [place] 26 degrees MUSE 07/06/2025 7:57 AM CDT [...] change was found Reviewed by LEONEL Velasquez Satnam Basilio APRN.N.Jean., M.S.N. ECG ORDERAB LES Final Result Performing Organization Address [place]/[facility] de Phone Number MUSE NA * Antibody Screen, RBC (with reflex Antibody ID) (07/06/2025 5:47 AM CDT) [facility] Antibody Screen Negative Negative 07/06/2025 6:58 AM CDT ETRM Blood (Blood, Venous) 07/06/2025 5:47 AM CDT 07/06/2025 6:22 AM CDT Satnam Basilio APRN.N.P., M.S.N. LAB BLOOD B ANK TEST ORDERABLES Final Result Performing Organization Address [facility] Phone Number [facility] 200 [place] [address], [facility] 200 [place] [address] * Phosphorus Inorganic (07/06/2025 5:47 AM CDT) Only the most recent of4 resultswithin the time period is included. [facility] Phosphorus (Inorganic), S 4.4 2.5 - 4.5 mg/dL 07/06/2025 6:44 AM CDT DTL Blood (Blood, Venous) 07/06/2025 5:47 AM CDT 07/06/2025 6:06 AM CDT Satnam Basilio APRN.N.P., M.S.N. LAB BLOOD A DD-ON Final Result Performing Organization Address [place]/State/ZIP Co de Phone Number [facility] [address] [place] [address], [facility] DTL [facility] [address] [place] [address] * (ABNORMAL) Comprehensive Metabolic Panel (07/06/2025 5:47 AM CDT) Only the most recent of10 resultswithin the time period is included. Potassium, [...] A DD-ON Final Result Performing Organization Address [place]/[facility] Co de Phone Number [facility] [address] [place] [address], [facility] [address] [place] [address] * 25-Hydroxyvitamin D2 and D3 (07/06/2025 5:46 AM CDT) [facility] 25-Hydroxy D2 <4.0 ng/mL 07/07/2025 10:42 AM CDT [facility] 25-Hydroxy D3 27 ng/mL 07/07/2025 10:42 AM CDT [facility] 25-Hydroxy D Total 27 ng/mL 2024 10:42 AM CDT [facility] Comment: ----REFERENCE VALUE---- 25-HYDROXY D TOTAL (D2+D3) Optimum levels in the healthy population are 20-50. ----ADDITIONAL INFORMATION---- This test was developed and its performance characteristics determined by [facility] in a manner consistent with CLIA requirements. This test has not been cleared or approved by the U.S. Food and Drug Administration. Blood (Blood, Venous) 07/06/2025 5:46 AM CDT 07/06/2025 10:21 AM CDT Jessica Avila APRN, C.N.P., M.S.N. LAB BLOOD A DD-ON Final Result Performing Organization Address City/[facility]/ZIP Co de Phone Number [facility] [address] [place], [place] [address] [address] [place] [address] [place] [address] * Porphyrins, Feces (07/05/2025 8:27 AM CDT) [...] developed and its performance characteristics determined by [facility] in a manner consistent with CLIA requirements. This test has not been cleared or approved by the U.S. Food and Drug Administration. Stool (Stool, 24 Hours) 07/05/2025 8:27 AM CDT 07/06/2025 4:38 PM CDT Gabrielle Carlos P.A.-C. LAB BODY FLUIDS AND STOOLS ORDERABLES Final Result [facility] [address] [place] [address], [facility] DT [address] [facility] [address] [place] [address] * Basic Metabolic Panel (07/05/2025 12:52 AM [...] AM CDT 07/05/2025 1:02 AM CDT us Jamari Basilio APRNNKatalinaP., M.S.N. LAB BLOOD A DD-ON Final Result Performing Organization Address [place]/[facility] de Phone Number [facility] [address] [place], [place] [address] [place] [address] [facility] [address] [place] [address] * ANCA (Antineutrophil Cytoplasmic Antibodies) Vasculitis Panel (07/03/2025 10:26 AM CDT) Myeloperoxidase Ab, S <0.2 <0.4 (Negative ) U 07/03/2025 1:48 PM CDT [facility] Proteinase 3 Ab (PR3), S <0.2 <0.4 (Negative ) U 07/03/2025 1:48 PM CDT [facility] Blood (Blood, Venous) 07/03/2025 10:26 AM CDT 07/03/2025 12:52 PM CDT us Gabrielle Carlos P.A.-C. LAB BLOOD ADD-ON Final Res ult Performing Organization Address City/[facility]/ZIP Co de Phone Number [facility] [address] [place] [address] [facility] [address] [place] [address] * Uroporphyrinogen Decarboxylase (UPG D), Whole Blood (07/03/2025 10:25 AM CDT) Pathologist [facility] UPG Decarboxylase, WB 1.81 RU 07/08/2025 8:16 [...] If clinically indicated, consider urine porphyrins analysis ([facility] test PQNRU). Please contact the [employer] road consultant or genetic counselor coat ironer hand ( ) if you have any questions. 07/08/2025 8:16 AM CDT DTL Comment: ----ADDITIONAL INFORMATION---- High-Performance Liquid Chromatography (HPLC)/Incubation of Lysed Erythrocytes This test was developed and its performance characteristics determined by [facility] in a manner consistent with CLIA requirements. This test has not been cleared or approved by the U.S. Food and Drug Administration. Blood (Blood, Venous) 07/03/2025 10:25 AM CDT 07/03/2025 11:09 AM CDT us Gabrielle Carlos P.A.-C. LAB BLOOD ADD-ON Final Res ult [facility] [address] [place] [address], [facility] DT [address] [facility] [address] [place] [address] * (ABNORMAL) C4 Complement, Functional (07/03/2025 10:25 AM CDT) Pathologist [facility] C4 Complement, Functional, S 61(H) 22 - 45 U/mL 07/07/2025 11:10 AM CDT [facility] Comment: ----ADDITIONAL INFORMATION---- This test was developed and its performance characteristics determined by [facility] in a manner consistent with CLIA requirements. This test has not been cleared or approved by the U.S. Food and Drug Administration. Blood (Blood, Venous) 07/03/2025 10:25 AM CDT 07/03/2025 1:14 PM CDT Gabrielle Carlos P.A.-C. LAB BLOOD NON ADD-ON Final Result Performing Organization Address [place]/[facility] Co de Phone Number [facility] [address] [place] [address] [facility] [address] [place] [address] * (ABNORMAL) C3 Complement, Functional (07/03/2025 10:25 AM CDT) C3 Complement, Functional, S 51(H) 21 - 50 U/mL 07/07/2025 11:10 AM CDT [facility] Comment: ----ADDITIONAL INFORMATION---- This test was developed and its performance characteristics determined by [facility] in a manner consistent with CLIA requirements. This test has not been cleared or approved by the U.S. Food and Drug Administration. Blood (Blood, Venous) 07/03/2025 10:25 AM CDT 07/03/2025 1:14 PM CDT Gabrielle Carlos P.A.-C. LAB BLOOD NON ADD-ON Final Result Performing Organization Address City/[facility] Co de Phone Number [facility] [address] [place] [address] [facility] [address] [place] [address] * Aminolevulinic Acid Dehydratase (ALAD) (07/03/2025 10:25 [...] developed and its performance characteristics determined by [facility] in a manner consistent with CLIA requirements. This test has not been cleared or approved by the U.S. Food and Drug Administration. Blood (Blood, Venous) 07/03/2025 10:25 AM CDT 07/03/2025 11:09 AM CDT Gabrielle SladeC. LAB GENETIC TESTING Final Result Performing Organization Address City/[facility]/ZIP Co de Phone Number [facility] [address] [place] [address] * CRP (C-Reactive Protein) (07/03/2025 10:25 AM CDT) C-Reactive Protein (CRP), S <3.0 <5.0 mg/L 07/03/2025 11:09 AM CDT DTL Blood (Blood, Venous) 07/03/2025 10:25 AM CDT 07/03/2025 10:36 AM CDT Gabrielle SladeC. LAB BLOOD ADD-ON Final Res ult Performing Organization Address City/[facility]/ZIP Co de Phone Number [facility] [address] [facility] [address] [place] [address] * C1 Esterase Inhibitor, Functional Assay (07/03/2025 10:24 AM CDT) [facility] C1 Esterase Inhib, Functional, S >90 % 07/06/2025 3:05 PM CDT [facility] Comment: ----REFERENCE VALUE---- Normal: >67% Equivocal: 41-67% Abnormal: <41% Blood (Blood, Venous) 07/03/2025 10:24 AM CDT 07/03/2025 1:15 PM CDT Gabrielle Carlos P.A.-C. LAB BLOOD NON ADD-ON Final Result [facility] [address] [place] [address] [facility] [address] [place] [address] * Lactate (07/03/2025 1:02 AM CDT) Only the most recent of4 resultswithin the time period is included. [facility] Lactate, P 1.2 0.5 - 2.2 mmol/L 07/03/2025 1:37 AM CDT [facility] Blood (Blood, Venous) 07/03/2025 1:02 AM CDT 07/03/2025 1:10 AM CDT Carlee Armas APRN, C.N.P., D.N.P., M.S. N. LAB BLOOD NON ADD-ON Final Result [facility] [address] [place] [address], [facility] 200 [place] [address] * Bacteria / Celso Culture, Blood #2 (07/02/2025 9:48 PM CDT) Only the most recent of4 resultswithin the time period is included. [facility] Bacteria/Yulia da Culture, Blood No growth after 5 days of incubation. 07/07/2025 11:02 PM CDT DTL Blood (Blood, Peripheral Draw) 07/02/2025 9:48 PM CDT 07/02/2025 10:06 PM CDT Comment:Specimen Source Site : Blood Satnam Ochoa APRN.N.P., D.N.P., M.S.N. LAB MICROBIOLOGY - GENERAL ORDERABLES Final Result [facility] [address] [place] [address], [facility] DTL [facility] [address] [place] [address] * CBC with Differential, Blood (07/02/2025 9:40 PM CDT) Only the most recent of5 resultswithin [...] ADD-ON Final Result Performing Organization Address City/[facility] Co de Phone Number [facility] 200 [place] [address] * (ABNORMAL) Lactate for Sepsis with Reflex (07/02/2025 9:39 PM CDT) Only the most recent of2 resultswithin the time period is included. Lactate, P 2.3(H) 0.5 - 2.2 mmol/L 07/02/2025 10:23 PM CDT DTL Blood (Blood, Venous) 07/02/2025 9:39 PM CDT 07/02/2025 9:59 PM CDT Satnam Ochoa APRN.N.P., D.N.P., M.S. N. LAB BLOOD NON ADD-ON Final Result Performing Organization Address City/[facility]/ZIP Co de Phone Number [facility] [address] [place] [address] * Lipase (07/02/2025 9:39 PM CDT) Only the most recent of2 resultswithin the time period is included. Lipase, S 13 13 - 60 U/L 07/02/2025 10:27 PM CDT DTL Blood (Blood, Venous) 07/02/2025 9:39 PM CDT 07/02/2025 9:59 PM CDT Satnam Ochoa APRN.N.P., Heaven.N.P., M.S. N. LAB BLOOD ADD-ON Final Result Performing Organization Address [place]/[facility] Co de Phone Number [facility] 200 [place] [address] * (ABNORMAL) GGT (Gamma-Glutamyltransferase) (07/02/2025 9:39 PM CDT) Gamma Glutamyltransferase (GGT), S 41(H) 5 - 36 U/L 07/02/2025 10:27 PM CDT DT Blood (Blood, Venous) 07/02/2025 9:39 PM CDT 07/02/2025 9:59 PM CDT Satnam Ochoa APRN.N.P., D.N.P., M.S. N. LAB BLOOD ADD-ON Final Result Performing Organization Address [place]/[facility] Co de Phone Number [facility] [address] [place] [address] * Amylase, Total (07/02/2025 9:39 PM CDT) Only the most recent of2 resultswithin the time period is included. Amylase, Total, S 28 28 - 100 U/L 07/02/2025 10:27 PM CDT DTL Blood (Blood, Venous) 07/02/2025 9:39 PM CDT 07/02/2025 9:59 PM CDT Jamari Ochoa APRNN.Jean., Heaven.N.P., M.S. N. LAB BLOOD ADD-ON Final Result Performing Organization Address [place]/[facility] Co de Phone Number [facility] [address] [place] [address] * Osmolality, Urine (07/02/2025 9:29 PM CDT) Osmolality, U 912 150 - 1150 mOsm/kg 07/02/2025 9:52 PM CDT DTL Urine 07/02/2025 9:2 9 PM CDT 07/02/2025 9:29 PM CDT Jamari Ochoa APRNN.P., Heaven.N.P., M.S. N. LAB URINE ORDERABLES Final Result Performing Organization Address [place]/[facility] de Phone Number [facility] [address] [place] [address] * (ABNORMAL) Dipstick, Urine (07/02/2025 9:29 PM [...] CDT 07/02/2025 9:29 PM CDT Jamari Ochoa APRNN.Jean., Heaven.N.P., M.S. N. LAB URINE ORDERABLES Final Result Performing Organization Address [place]/[facility] Co de Phone Number [facility] [address] [place] [address] * pH, Random, Urine (07/02/2025 9:29 PM CDT) pH, Random, U 5.9 4.5 - 8.0 07/02/2025 9:52 PM CDT DTL Urine 07/02/2025 9:29 PM CDT 07/02/2025 9:29 PM CDT Satnam Ochoa APRN.N.P., Heaven.N.P., M.S. N. LAB URINE ORDERABLES Final Result Performing Organization Address [place]/[facility] de Phone Number [facility] [address] [place] [address] * Microscopic Manual (07/02/2025 9:29 PM CDT) [...] URINE ORDERABLES Final Result Performing Organization Address [place]/[facility] Co de Phone Number [facility] [address] [place] [address] * Bacterial Culture, Aerobic + Susceptibility, Urine (07/02/2025 9:29 PM CDT) Pathologist [facility] Urine Culture Urogenital microbiota, susceptibilities not performed per laboratory criteria. 07/04/2025 6:50 AM CDT DTL Urine (Urine, Midstream) 07/02/2025 9:29 PM CDT 07/02/2025 9:39 PM CDT Comment:Specimen Source Site : Urine Carlee Armas APRN C.N.P., D.N.P., M.S.N. LAB MICROBIOLOGY - GENERAL ORDERABLES Final Result Performing Organization Address [place]/[facility] de Phone Number [facility] [address] [place] [address] * Urinalysis, with Microscopic: Urine, Midstream (07/02/2025 [...] M.S. N. LAB URINE ORDERABLES Final Result [facility] [address] [place] [address], [facility] [address] [place] [address] * CT Abdomen Pelvis Enterography with IV Contrast (06/30/2025 3:37 PM CDT) Anatomical Region Laterality Modality Abdomen, Pelvis, Abdominal R ST LOS, Abdominal ARZ LOS, Abdominal FLA LOS N/A Computed Tomograp hy, Computed Tomography 06/30/2025 3:4 1 PM CDT Impressions 06/30/2025 6:43 PM CDT [...] without recurrence of the marked splenomegaly seen [id number]. No suspicious lymphadenopathy within the abdomen or [...] N. IMG CT PROCEDURES Final Result * Flexible Sigmoidoscopy (06/26/2025 10:17 AM CDT) [...] Melvin Pre-op Diagnoses: Abdominal pain, Exclusion of vwwoz-sianje-mdmi disease, Diarrhea Recommendation: - Return patient to [...] 0 Note Initiated On: 06/26/2025 10:17 AM Jade Ochoa APRNDustin, DeniseN.P., M.S.N. GI PROCEDURE ORDERABLES Final Result [facility] NA * Upper GI Endoscopy (06/26/2025 10:17 AM CDT) 06/26/2025 10:1 7 AM CDT Impressions [facility] - 06/26/2025 11:54 AM CDT Post-op Diagnoses: [...] requested. Narrative [facility] - 06/26/2025 11:54 AM CDT Gonda 2 GI Patient Name: Radha Martinez Date of : 1990 Age: 35 Procedure Date: 06/26/2025 Procedure: Upper GI endoscopy Providers: Tamara Rashid MD Referring Provider: Mckenzie Melvin Pre-op Diagnoses: Exclusion of vysui-llizgi-nugz disease, Diarrhea, Nausea with vomiting Recommendation: - [...] RE ORDERABLES Final Result Performing Organization Address City/[facility]/ZIP Co de Phone Number [place] [employer] NA * Prothrombin Time (PT) (06/26/2025 5:24 [...] ADD-ON Fin al Result Performing Organization Address City/[facility] [place] [address], [facility] [address] * US Pelvis Transvaginal and Transabdominal (06/25/2025 [...] None. Findings discussed with Aditi Candelario APRN, CHILDREN'S SERVICE SUPERVISOR pager ([phone]) by Dr. Mcelroy 06/25/2025 at 2:09 PM. Procedure Note Marta Mcelroy M.D. - 06/25/2025 EXAM: US PELVIS TRANSVAGINAL AND TRANSABDOMINAL HISTORY: 35-year-old female with suprapubic/lower quadrant discomfort [id number]. COMPARISON: CT abdomen and pelvis 06/24/2025 TECHNIQUE: [...] None. Findings discussed with Aditi Candelario APRN, CHILDREN'S SERVICE SUPERVISOR pager ([phone]) by Dr. Mcelroy06/25/2025 at 2:09 PM. IMPRESSION: [...] per leftventricular function protocol. Last full echocardiogram icfnweiri12/18/2024. LEFT VENTRICLE:Normal left ventricular chamber size. Abnormal [...] Mckenzie Melvin APRN, C.N.P., D.N.P. CV ECHO OR OCEDURES Final Result * Chimerism Transplant Sorted Cells (06/25/2025 12:35 AM CDT) Specimen Type Peripheral blood 06/29 4:34 PM CDT DTL Interpretation Peripheral blood, chimerism analysis: CD3-positive T-cells: The CD3-positive fraction contains approximately 90% donor DNA and approximately 10% recipient DNA. GO84-igfcfkem myeloid cells: The VX13-mzqoigui fraction contains approximately 100% donor DNA and [...] purity of 95% or greater. Markers analyzed: [id number], A7Q1055, FGA, SE33, vWA, D21S11, [id number], A49S9614, B33Q783, D18S51, F5S373, D6D7221, CSF1PO, Q9J621, P86R952, T47Q837, TPOX, Y43D795, U5P301 and P8J1455 06/29/2025 4:34 PM CDT DTL Comment: ----ADDITIONAL INFORMATION---- Method summary - Chimerism: Genomic DNA was extracted and the specimen evaluated for the percentages of donor and recipient DNA using a PCR-based method that amplifies several highly polymorphic short tandem repeats (see [facility] Interpretive Handbook for method details). This test was developed and its performance characteristics determined by [facility] in a manner consistent with CLIA requirements. This test has not been cleared or approved by the U.S. Food and Drug Administration. Blood (Blood, Peripheral Draw) 06/25/2025 12:35 AM CDT 06/25/2025 6:57 AM CDT us Mckenzie Melvin APRN, C.N.P., D.N.P. LAB GENETI C TESTING Final Result Performing Organization Address [place]/[facility] [place] [address] * hCG (Human Chorionic Gonadotropin), Quantitative, (06/25/2025 12:35 AM CDT) [facility] HCG, Quantitative, , S <0.5 <5 IU/L 06/25/2025 9:57 AM CDT DT Blood (Blood, Venous) 06/25/2025 12:35 AM CDT 06/25/2025 8:35 AM CDT us Racquel Candelario APRN, C.N.P. LAB BLOOD ADD-ON Fin al Result Performing Organization Address [place]/[facility] [place] [address] * CT Abdomen Pelvis with IV Contrast [...] have resolved. Mckenzie Melvin APRN, C.N.P., D.N.P. [facility] [place] PRO CEDURES Final [...] Previous groundglass opacities from 06/05/2025 have resolved. Mceknzie Melvin APRN, C.N.P., D.N.P. [facility] [place] CT PRO CEDURES Final Result * BCR/ABL1, p210, mRNA Detection, Reverse Staff Veterinarian-PCR (RT-PCR), Quantitative, Monitoring Chronic Myeloid Leukemia (CML) (06/23/2025 8:18 AM CDT) Only the most recent of2 [...] level was evaluated using a quantitative, reverse pathology transcriptionist PCR. The analytical sensitivity of this assay [...] all possible fusion forms. Please contact the [facility] at [phone] with questions or if additional testing is required. See the [facility] Interpretive Handbook for method details. The [...] developed and its performance characteristics determined by [facility] in a manner consistent with CLIA requirements. This test has not been cleared or approved by the U.S. Food and Drug Administration. Blood (Blood, Venous) 06/23/2025 8:18 AM CDT 06/23/2025 8:58 AM CDT Tessa Jesus APRN, C.N.P., D.N.P. LAB BLOOD NON ADD-ON Final Result [facility] [address] [place] [address], [facility] [address] [place] [address] * Hematologic Disorders, DNA Extract and Hold [...] the Molecular Hematopathology Laboratory's test menu, contact [facility] at [phone]. Method summary: DNA was extracted using an EZ1 BioRobot ([employer]). 06/15/2025 9:50 AM CDT 06/15/2025 3:07 PM CDT us Jessica Barnes LAB BLOOD NON ADD-ON Final Result [facility] [address] [place] [address], [facility] DTL [address] [place] [address] * Chimerism Transplant No Cell Sort (06/15/2025 9:50 AM CDT) Specimen Type Bone marrow 06/17/2025 5:01 PM CDT DTL Interpretation These results are considered ancillary findings and require complete integration with the current pathology case [id number] for final interpretation. The result should NOT [...] and recipient DNA mixed chimerism). Markers analyzed: [id number], I0R2485, FGA, SE33, vWA, D21S11, [id number], [id number], P47U586, D18S51, O0U285, Z1E1778, CSF1PO, E5O199, Z76L100, F08Z470, TPOX, J86L792, W4M543 and L2M4938 06/17/2025 5:01 PM CDT DTL Comment: ----ADDITIONAL INFORMATION---- Method summary - Chimerism: Genomic DNA was extracted and the specimen evaluated for the percentages of donor and recipient DNA using a PCR-based method that amplifies several highly polymorphic short tandem repeats (see [facility] Interpretive Handbook for method details). This test was developed and its performance characteristics determined by [facility] in a manner consistent with CLIA requirements. This test has not been cleared or approved by the U.S. Food and Drug Administration. 06/15/2025 9:50 AM CDT 06/15/2025 12:09 PM CDT us Jessica Barnes LAB GENETIC TESTING Final Result [facility] [address] [place] [address], [facility] DTL [address] [place] [address] * Myeloid Neoplasms, Comprehensive OncoHeme Next-Generation Sequencing [...] 1). ClinicalTrials.gov : http://clinicaltri als.gov/ct2/search /advanced 2). [facility]: http://www.[place]riev[place]. u/research/clinica l-trials 3). National Cancer [place]: http://www.cancer. gov/clinicaltrials /search 4). The Leukemia & Lymphoma Society's Clinical Trial Support Center https://www.hemato logy.org/education /clinicians/clinic ke-nechp-sguokkg-c enter 06/22/2025 3:03 PM CDT DTL Variants of Unknown Significance (VUS) None 06/22/2025 3:03 PM CDT DTL Additional Information None A portion of the testing process was performed at [facility] site [id number]. 06/22/2025 3:03 PM CDT DTL Method DNA [...] developed and its performance characteristics determined by [facility] in a manner consistent with CLIA requirements. This test has not been cleared or approved by the U.S. Food and Drug Administration. *Some genetic or genomic alterations such as very large insertion/deletion events, copy number alterations (FRAME CLEANER) and gene translocation events are not detected [...] (clonal cytopenias of uncertain significance, CCUS) [PMIDs: [id number], [id number], [id number], and [id number]]. Distinction between CHIP or CCUS and a [...] very large insertion/deletion events, copy number alterations (FRAME CLEANER) and gene translocation events are not detected [...] require complete integration with current pathology case [id number] for final interpretation. The result should NOT [...] Jessica Barnes LAB GENETIC TESTING Final Result [facility] [address] [place] [address], [facility] DTL [address] [place] [address] * OR DX BONE MARROW BX & ASPIR (06/15/2025 [...] (06/15/2025 12:00 AM CDT) 06/16/2025 10:32 AM [facility] Report electronically signed by Hanna Xiong M.D., Ph.D. I verify that I have examined all relevant slides/materials for the specimen(s) and rendered or confirmed the diagnosis. 06/16/2025 10:32 AM T [facility] Gross Description B: Core biopsy specimens [...] C1. Grossed by OER. 06/16/2025 10:32 AM [facility] Addendum ADDENDUM Molecular analysis for next generation sequencing (NGSHM), bone marrow ([id number]; 06/15/2025): Pathogenic Mutations Detected: None No other [...] chimerism transplant no cell sort, bone marrow ([id number]; 06/15/2025): The specimen contains approximately 100% donor DNA and approximately 0% recipient DNA. 3 informative loci were used in the analysis of this sample. See molecular report for complete details. Molecular Hematopathology studies interpreted by Jaylin Beltran M.D. Signed by Hanna Xiong M.D., Ph.D. 06/18/2025 11:35 AM ADDENDUM Molecular analysis for BCR/ABL1, p210, quant, bone marrow ([id number]; 06/15/2025): Negative. No BCR/ABL1 p210 mRNA transcripts [...] 06/16/2025 3:33 PM 06/23/2025 8:41 AM T [facility] Comment:REVISED RESULTS Interpretation FINAL DIAGNOSIS Peripheral [...] date of extraction. 06/23/2025 8:41 AM CDT [facility] 06/15/2025 06/15/2025 6:5 3 AM CDT Jessica Barnes LAB SURG PATH ORDERABLES E dited Result - Final Performing Organization Address City/[facility] Co de Phone Number [facility] [address] [place] [address] * NT-Pro B-Type Natriuretic Peptide (BNP) (06/07/2025 [...] BLOOD ADD-ON Final Result Performing Organization Address [place]/[facility] Co de Phone Number [facility] [address] [place] [address], [facility] DTL [facility] [address] [place] [address] * (ABNORMAL) C-Reactive Protein, High Sensitivity (06/07/2025 [...] ADD-ON Final Result Performing Organization Address City/[facility]/ZIP Co de Phone Number [facility] [address] [place] [address], [facility] [address] [address] * Troponin T, 5th Generation (06/07/2025 12:12 PM CDT) Troponin T, 5th gen <6 <=10 ng/L 06/07/2025 1:04 PM CDT DTL Blood (Blood, Venous) 06/07/2025 12:12 PM CDT 06/07/2025 12:19 PM CDT Analia Gamez APRN, C.N.P. LAB BLOOD ADD-ON Final Result [facility] [address] [place] [address], [facility] [address] * CT Chest Angiogram and Pulmonary Arteries [...] hepatic steatosis. Jessica Avila APRN, C.N.P., M.S.N. 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 [...] PROCEDURE ORDERABLES Final Result Performing Organization Address City/[facility] Co de Phone Number [place] NA * Clostridioides (Clostridium) Difficile Toxin, Molecular Detection, PCR, Feces (05/17/2025 2:42 PM CDT) C. difficile Toxin, F Negative Negative 05/17/2025 3:59 PM CDT DTL Stool (Stool) 05/17/2025 2:4 2 PM CDT 05/17/2025 3:13 PM CDT us Tiffani Leroy APRN C.N.P., D.N.P. LAB MICROBIOLOGY - GENERAL ORDERABLES Final Result Performing Organization Address City/[facility]/ZIP Co de Phone Number [facility] [address] [place] [address], [facility] [address] [place] [address] * (ABNORMAL) Lipid Panel (03/24/2025 9:29 AM [...] Barnes LAB BLOOD ADD-ON Final Res ult [facility] [address] [place] [address], [facility] Laboratories[facility] [address] [place] [address] * Pulmonary Function Tests (03/23/2025 9:48 AM CDT) FVC 5.33 L 03/23/2025 11:15 AM CDT [facility] FEV1 4.40 L 03/23/2025 11:15 AM CDT [facility] FEV1/FVC 82.70 % 03/23/2025 11:15 AM CDT [facility] RIZ32-62% 4.89 L/s 03/23/2025 11:15 AM CDT [facility] PEF PRE 8.01 L/s 03/23/2025 11:15 AM CDT [facility] PIF PRE 8.12 L/s 03/23/2025 11:15 AM CDT [facility] Pre FEF50/FIF50 77.59 % 03/23/2025 11:15 AM CDT [facility] FET PRE 6.33 sec 03/23/2025 11:15 AM CDT [facility] DLCO 22.95 ml/(min*mm Hg) 03/23/2025 11:15 AM CDT [facility] DLCOc 24.32 ml/(min*mm Hg) 03/23/2025 11:15 AM CDT [facility] HB 11.70 g(Hb)/dL 03/23/2025 11:15 AM CDT [facility] Pre % Pred [place] SINGLE BREATH 6.32 L 03/23/2025 11:15 AM CDT [facility] PulseRest 70.00 1/min 03/23/2025 11:15 AM CDT [facility] G4TjqIrti 98.00 % 03/23/2025 11:15 AM CDT [facility] PulseExer 121.00 1/min 03/23/2025 11:15 AM CDT [facility] EXER TIME 3.00 min 03/23/2025 11:15 AM CDT [facility] STEP HEIGHT PRE 9.00 Inch 03/23/2025 11:15 AM CDT [facility] 03/23/2025 9:48 AM CDT Impressions [facility] - 03/23/2025 11:15 AM CDT Normal [...] Jessica Barnes PFT ORDERABLES Final Resu lt [place] SUITE NA * ThinPrep w/HPV Co-Test Screen (10/15/2019 11:05 AM SEARCH ENGINE OPTIMIZER) 10/21/2019 4:10 PM SEARCH ENGINE OPTIMIZER [facility] Report electronically signed by JEFF Mora(ASCP) I verify that I have examined all relevant slides/materials for the specimen(s) and rendered or confirmed the diagnosis. 10/21/2019 4:10 PM SEARCH ENGINE OPTIMIZER [facility] Gross Description Received specimen in a ThinPrep vial. 10/21/2019 4:10 PM SEARCH ENGINE OPTIMIZER [facility] Pap Test Source Cervical/Endocervi lolly 10/21/2019 4:10 PM SEARCH ENGINE OPTIMIZER [facility] Clinical History other 10/21/20 19 4:10 PM SEARCH ENGINE OPTIMIZER [facility] Menstrual Status(LMP, PM, ) on depo lupron 10/21/2019 4:10 PM SEARCH ENGINE OPTIMIZER [facility] Hormone Therapy/Contracep tives Hormone Replacement Therapy 10/21/2019 4:10 PM SEARCH ENGINE OPTIMIZER [facility] Interpretation Cervical/Endocervi lolly (ThinPrep): Satisfactory for Evaluation Negative for Intraepithelial Lesion or Malignancy High Risk HPV: Negative Negative for High Risk HPV by nucleic acid amplification. The following High Risk HPV types were not detected: 16, 18, 31, 33, 35, 39, 45, 51, 52, 56, 58, 59, 66, and 68. 10/21/2019 4:10 PM SEARCH ENGINE OPTIMIZER [facility] Varies (Cervix/Endocerv ix) 10/15/2019 11:05 AM SEARCH ENGINE OPTIMIZER 10/17/2019 7:54 AM SEARCH ENGINE OPTIMIZER us Adore Alonso M.D. LAB PAP PATHDX ORDERABLE S Final Result Performing Organization Address City/[facility]/ZIP Co de Phone Number [facility] [address] [place] [address], [facility] [address] [place] [address] [place] [address] * HCV Ab Scrn w/Reflex to HCV PCR, Serum (12/12/2018 5:58 PM SEARCH ENGINE OPTIMIZER) HCV Ab Screen, S Negative Negative 12/12/2018 10:26 PM SEARCH ENGINE OPTIMIZER [facility] Comment:Cpqzwp-fd-fsydck rat io is <1.00. Blood (Blood, Venous) 12/12/2018 5:58 PM SEARCH ENGINE OPTIMIZER 12/12/2018 7:59 PM SEARCH ENGINE OPTIMIZER Adore Yip APRN, C .N.P., D.N.P. LAB MICROBIOLOGY - BLOOD ORDERABLES Final Result [facility] [address] [place] [address] * Hepatitis B Surface Antigen (12/12/2018 5:58 PM SEARCH ENGINE OPTIMIZER) HBs Antigen, S Negative Negative 12/12/2018 10:08 PM SEARCH ENGINE OPTIMIZER [facility] Blood (Blood, Venous) 12/12/2018 5:58 PM SEARCH ENGINE OPTIMIZER 12/12/2018 7:59 PM SEARCH ENGINE OPTIMIZER Adore Yip APRN, C .N.P., D.N.P. LAB MICROBIOLOGY - BLOOD ORDERABLES Final Result [facility] [address] [place] [address] from Last 3 Months or Most Recently Relevant to Health Maintenance Additional Health Concerns Infection Onset Date Last Indicated Protective Environment 03/02/2023 3 Insurance [facility] FOR MEDICAID PRODUCTS MEDICARE Advance Directives For more information, please contact: [phone] Documents on File Type Date Recorded Patient Wire Coiler Expl anation Advance Directives 12/08/2024 9:32 AM [...] Alternat e Health Care Agent Care Teams Nipple Threader Relationship Specialty Start Date End Date Renzo Andres M.D. NPAmanda: [phone] [address] [place] [phone] PCP - General Family Medicine 04/25/23
--- OUTSIDE RECORDS SUMMARY | 2025-08-09 14:35 | XMS_ITS | Encounter Summary ---
Author Organization [facility] Address [address] [place] [address] Care Team Providers Care Knitting Machine Operator Name Role Phone Renzo Andres M.D. Primary Care Provider [phone] Encounter Details Date Type Department Care Team (Late st Contact Info) Description 06/29/2025 Clinical Communication [facility], Ninth Floor [address] [place] [phone] Antonina Paul V., RKatalinaNKatalina Social History Tobacco [...] things needed for daily living? No 06/24/2025 [facility] [...] Sex Assigned at Female 12/26/2018 8:37 PM SHAPER SETTER Legal Sex Female 2:43 PM SHAPER SETTER Gender Identity Female 12/26/2018 8:37 PM SHAPER SETTER Sexual Orientation Choose not to disclose [...] Office Visit Department of Palliative Care in [place], [place] [address] [place] [phone] Meghan Osorio M.D. [address] [place] [phone] 08/11/2025 9:00 AM CDT Nurse Only Section of Infectious Diseases in [place], [place] [address] [place] [phone] Jessica Rousseau M.B.B.S. [address] [place] [phone] 08/11/2025 1:00 PM CDT Clinical Support Department of Palliative Care in [place], [place] [address] [place] [phone] Uma Aly APRN, C.N.P., M.S.N. [address] [place] [phone] 08/13/2025 10:00 AM CDT Lab Department of Laboratory Medicine and Pathology, [facility], in [place], [place] [address] [place] [phone] Jessica Rousseau M.B.B.S. [address] [place] [phone] 08/13/2025 10:30 AM CDT [facility] in [place], [place] [address] [place] [phone] Jessica Rousseau M.B.B.S. [address] [place] [phone] Nelli Parker Pharm.D., R.Ph. [address] [place] [phone] 08/13/2025 11:00 AM CDT Nurse Only [facility] Transplantation and Clinical Regeneration in [place], [place] [address] [place] [phone] Jessica Rousseau M.B.B.S. [address] [place] [phone] 08/13/2025 11:30 AM CDT Office Visit [facility] Transplantation and Clinical Regeneration in [place], [place] [address] [place] [phone] Jessica Rousseau M.B.B.S. [address] [place] [phone] 08/13/2025 3:00 PM CDT Clinical Support Department of Palliative Care in [place], [place] [address] [place] [phone] Meghan Osorio M.D. [address] [place] [phone] Mary Garcia M.S.W., L.I.C.S.W. [address] [place] [phone] 08/25/2025 8:00 AM CDT Telemedicine [facility] Transplantation and Clinical Regeneration in [place], [place] [address] [place] [address] [phone] Jessica Rousseau M.B.B.S. [address] [place] [phone] documented as of this encounter Visit Diagnoses Not on filedocumented in this encounter Additional Health Concerns Infection Onset Date Last Indicated Resolved Time Protective Environment 03/02/2023 03/02/2023 Assessment Noted Time PHQ-9 Depression Total Score: 2 12/10/19 25 2:46 PM SHAPER SETTER documented as of this encounter Care Teams Knitting Machine Operator Relationship Specialty Start Date End Date Renzo Andres M.D. [address] [place] [address] [place] [phone] PCP - General Family Medicine 04/25/23 documented as of this encounter
--- OUTSIDE RECORDS SUMMARY | 2025-08-09 14:35 | XMS_ITS | Encounter Summary ---
Author Organization [facility] Address [address] [place] [address] Care Team Providers Care Therapeutic Massage Technician Name Role Phone Renzo Andres M.D. Primary Care Provider Reason for Visit * Reason Onset Date Comments Phone Contact 07/02/2025 Encounter Details Date Type Department Care Team (Latest Contact Info) Description 07/02/2025 Clinical Communication [facility] in [place], [place] [address] [place] [phone] Jessica Rousseau M.B.B.S. [address] [place] [phone] Phone Contact Social History Tobacco Use Types [...] In the past 12 months has e Client Outlook, gas, oil, or water [employer]uitar Party threatened to shut off services in your [...] Sex Assigned at Female 12/26/2018 8:37 PM MOBILE EQUIPMENT OPERATOR Legal Sex Female 2:43 PM MOBILE EQUIPMENT OPERATOR Gender Identity Female 12/26/2018 8:37 PM MOBILE EQUIPMENT OPERATOR Sexual Orientation Choose not to disclose [...] 165/110 one time check at home DR Rousseau is aware I told her to call [facility] if she feels unwell local ED will not manage her pain and her nausea documented in this encounter Plan of Treatment Upcoming Encounters Date Type Department Care Team (Late st Contact Info) Description 08/11/2025 8:00 AM CDT Office Visit Department of Palliative Care in [place], [place] [address] [place] [phone] Meghan Osorio M.D. [address] [place] [phone] 08/11/2025 9:00 AM CDT Nurse Only Section of Infectious Diseases in [place], [place] [address] [place] [phone] Jessica Rousseau M.B.B.S. [address] [place] [phone] 08/11/2025 1:00 PM CDT Clinical Support Department of Palliative Care in [address] [phone] Uma Aly APRN, C.N.P., M.S.N. [address] [place] [phone] 08/13/2025 10:00 AM CDT Lab Department of Laboratory Medicine and Pathology, [facility], in [place], [place] [address] [place] [phone] Jessica Rousseau M.B.B.S. [address] [place] [phone] 08/13/2025 10:30 AM CDT [facility] in [place], [place] [address] [place] [phone] Jessica Rousseau M.B.B.S. [address] [place] [phone] Nelli Parker Pharm.D., R.Ph. [address] [place] [phone] 08/13/2025 11:00 AM CDT Nurse Only [facility] Transplantation and Clinical Regeneration in [place], [place] [address] [place] [phone] Jessica Rousseau M.B.B.S. [address] [place] [phone] 08/13/2025 11:30 AM CDT Office Visit [facility] [place] Transplantation and Clinical Regeneration in [place], [place] [address] [place] [phone] Jessica Rousseau M.B.B.S. [address] [place] [phone] 08/13/2025 3:00 PM CDT Clinical Support Department of Palliative Care in [place], [place] [address] [place] [phone] Meghan Osorio M.D. [address] [place] [phone] Mary Garcia M.S.W., L.I.C.S.W. [address] [place] [phone] 08/25/2025 8:00 AM CDT Telemedicine [facility] for Transplantation and Clinical Regeneration in [place], [place] [address] [place] [phone] Jessica Rousseau M.B.B.S. [address] [place] [address] documented as of this encounter Visit Diagnoses Not on filedocumented in this encounter Additional Health Concerns Infection Onset Date Last Indicated Resolved Time Protective Environment 03/02/2023 03/02/2023 Assessment Noted Time PHQ-9 Depression Total Score: 2 12/10/19 25 2:46 PM MOBILE EQUIPMENT OPERATOR documented as of this encounter Care Teams Therapeutic Massage Technician Relationship Specialty Start Date End Date Renzo Andres M.D. [address] [place] [phone] PCP - General Family Medicine 04/25/23 documented as of this encounter
--- OUTSIDE RECORDS SUMMARY | 2025-08-09 14:35 | XMS_ITS | Encounter Summary ---
Author Organization [facility] Address [address] [place] [address] Care Team Providers Care Supervisor Tank [place] Name Role Phone Renzo Andres M.D. Primary Care Provider [phone] Encounter Details Date Type Department Care Team (Late st Contact Info) Description 06/29/2025 Orders Only Pedro Nazario [facility] for Transplantation and Clinical Regeneration in [place], [place] [address] [place] [phone] Tara Marin R.N., BMT-CN [address] [place] [phone] Transplant Bone Marrow Allogeneic (HCC) (Primary Dx); [...] daily living? No 07/02/[address] [facility] Utilities Answer Date Recorded In the past 12 months has e Integration Management, gas, oil, or water company threatened to [...] Assigned at Female 12/26/2018 8:37 PM FISH HOUSEKEEPER Legal Sex Female 2:43 PM FISH HOUSEKEEPER Gender Identity Female 12/26/2018 8:37 PM FISH HOUSEKEEPER Sexual Orientation Choose not to disclose 2020 3:46 PM CDT documented as of this encounter Plan of Treatment Upcoming Encounters Date Type Department Care Team (Late st Contact Info) Description 08/11/2025 8:00 AM CDT Office Visit Department of Palliative Care in [place], [place] 200 [place] [address] Meghan Osorio M.D. 200 [place] [phone] 08/11/2025 9:00 AM CDT Nurse Only Section of Infectious Diseases in [place], [place] [address] [place] [phone] Jessica Rousseau M.B.B.S. [address] [place] [phone] 08/11/2025 1:00 PM CDT Clinical Support Department of Palliative Care in [place], [place] [address] [place] [phone] Uma Aly APRN, C.N.P., M.S.N. [address] [place] [phone] 08/13/2025 10:00 AM CDT Lab Department of Laboratory Medicine and Pathology, [facility], in [place], [place] [address] [place] [phone] Jessica Rousseau M.B.B.S. [address] [place] [phone] 08/13/2025 10:30 AM CDT Office Visit Pedro sanchez [facility] for Transplantation and Clinical Regeneration in [place], [place] [address] [place] [phone] Jessica Rousseau M.B.B.S. [address] [place] [phone] Nelli Parker, Pharm.D., R.Ph. [address] [place] [phone] 08/13/2025 11:00 AM CDT Nurse Only Pedro Aravind sanchez [facility] for Transplantation and Clinical Regeneration in [place], [place] [address] [place] [phone] Jessica Rousseau M.B.B.S. [address] [place] [phone] 08/13/2025 11:30 AM CDT Office Visit [facility] Transplantation and Clinical Regeneration in [place], [place] [address] [place] [phone] Jessica Rousseau M.B.B.S. [address] [place] [phone] 08/13/2025 3:00 PM CDT Clinical Support Department of Palliative Care in [place], [place] [address] [place] [address] [phone] Meghan Osorio M.D. [address] [place] [phone] Mary Garcia M.S.Vivi., L.I.C.S.W. [address] [place] [phone] 08/25/2025 8:00 AM CDT Telemedicine [facility] Transplantation and Clinical Regeneration in [place], [place] [address] [place] [phone] Jessica Rousseau M.B.B.S. 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 [address] [place] [phone] PCP - General Family Medicine 04/25/23 documented as of this encounter
--- OUTSIDE RECORDS SUMMARY | 2025-08-09 14:35 | XMS_ITS | Encounter Summary ---
Author Organization [facility] Address [address] [place] [address] Care Team Providers Care Interior Painter Name Role Phone Renzo Andres M.D. Primary Care Provider [phone] Reason for Visit * Reason Onset Date Comments Medication Problem 07/08/2025 Encounter Details Date Type Department Care Team (Latest Contact Info) Description 07/08/2025 Clinical Communication [facility] [address] [place] [phone] Adrián Arechiga, Pharm.D., R.Ph. [address] [place] [phone] Medication Problem Social History Tobacco Use Types [...] needed for daily living? No 07/02/2025 [facility] Utilities Answer Date Recorded In the past 12 months has th e electric, gas, oil, or water company threatened to shut off services in your home? No 07/02/2025 Depression Answer Date Recor ded PHQ-9 Total Score (max 27) 12 07/08 Housing Stability Answer Date Recorded What is your living situation today? I have a [facility] place to live 07/02/2025 Education Answer Date Recorded What is the highest level of school you have completed or the highest degree you have received? Some college, no degree 04/24/2019 Comments No Sex and Gender Information Value Date Recorded Sex Assigned at Female 12/26/2018 8:37 PM QC LAB TECHNICIAN Legal Sex Female 2:43 PM QC LAB TECHNICIAN Gender Identity Female 12/26/2018 8:37 PM QC LAB TECHNICIAN Sexual Orientation Choose not to disclose 2020 3:46 PM CDT documented as of this encounter Plan of Treatment Upcoming Encounters Date Type Department Care Team (Late st Contact Info) Description 08/11/2025 8:00 AM CDT Office Visit Department of Palliative Care in [place], [place] 200 [place] [address] Meghan Osorio M.D. 200 [place] [phone] 08/11/2025 9:00 AM CDT Nurse Only Section of Infectious Diseases in [place], [place] [address] [place] [phone] Jessica Rousseau M.B.B.S. [address] [place] [phone] 08/11/2025 1:00 PM CDT Clinical Support Department of Palliative Care in [place], [place] [address] [place] [phone] Uma Aly APRN, C.N.P., M.S.N. [address] [place] [phone] 08/13/2025 10:00 AM CDT Lab Department of Laboratory Medicine and Pathology, [facility], in [place], [place] [address] [place] [phone] Jessica Rousseau M.B.B.S. [address] [place] [phone] 08/13/2025 10:30 AM CDT Office Visit Pedro sanchez [facility] for Transplantation and Clinical Regeneration in [place], [place] [address] [place] [phone] Jessica Rousseau M.B.B.S. [address] [place] [phone] Nelli Parker, Pharm.D., R.Ph. [address] [place] [phone] 08/13/2025 11:00 AM CDT Nurse Only Pedro Aravind sanchez [facility] for Transplantation and Clinical Regeneration in [place], [place] [address] [place] [phone] Jessica Rousseau M.B.B.S. [address] [place] [phone] 08/13/2025 11:30 AM CDT Office Visit [facility] Transplantation and Clinical Regeneration in [place], [place] [address] [place] [phone] Jessica Rousseau M.B.B.S. [address] [place] [phone] 08/13/2025 3:00 PM CDT Clinical Support Department of Palliative Care in [place], [place] [address] [place] [phone] Meghan Osorio M.D. [address] [place] [phone] Mary Garcia M.S.Vivi., L.I.C.S.W. [address] [place] [phone] 08/25/2025 8:00 AM CDT Telemedicine [facility] Transplantation and Clinical Regeneration in [place], [place] [address] [place] [phone] Jessica Rousseau M.B.B.S. [address] [place] [phone] documented as of this encounter Visit Diagnoses Not on filedocumented in this encounter Additional Health Concerns Infection Onset Date Last Indicated Resolved Time Protective Environment 03/02/2023 03/02/2023 Assessment Noted Time PHQ-9 Depression Total Score: 12 07/08/ 025 9:42 AM CDT documented as of this encounter Care Teams Interior Painter Relationship Specialty Start Date End Date Renzo Andres M.D. [address] [place] [address] [place] [phone] PCP - General Family Medicine 04/25/23 documented as of this encounter
--- OUTSIDE RECORDS SUMMARY | 2025-08-09 14:35 | XMS_ITS | Encounter Summary ---
Author Organization [facility] Address [address] [place] [address] Care Team Providers Care Boiler Maker Name Role Phone Renzo Andres M.D. Primary Care Provider Reason for Visit * Reason Onset Date Comments Phone Contact 07/08/2025 New Symptoms Encounter Details Date Type Department Care Team (Latest Contact Info) Description 07/08/2025 Clinical Communication [facility] in [place], [place] [address] [place] [address] Jessica Rousseau M.B.B.S. [address] [place] [phone] Phone Contact (New Symptoms ) Social History [...] things needed for daily living? No 07/02/2025 [facility] Utilities Answer Date Recorded In the past 12 months has e electric, gas, oil, or water company threatened to shut off services in your home? No 07/02/2025 Depression Answer Date Recor ded PHQ-9 Total Score (max 27) 12 07/08 Housing Stability Answer Date Recorded What is your living situation today? I have a [facility] place to live 07/02/2025 Education Answer Date Recorded What is the highest level of school you have completed or the highest degree you have received? Some college, no degree 04/24/2019 Comments No Sex and Gender Information Value Date Recorded Sex Assigned at Female 12/26/2018 8:37 PM [employer] WEBSPHERE COMMERCE CONSULTANT Legal Sex Female 2:43 PM [employer] WEBSPHERE COMMERCE CONSULTANT Gender Identity Female 12/26/2018 8:37 PM IBM WEBSPHERE COMMERCE CONSULTANT Sexual Orientation Choose not to disclose 2020 3:46 PM CDT documented as of this encounter Plan of Treatment Upcoming Encounters Date Type Department Care Team (Late st Contact Info) Description 08/11/2025 8:00 AM CDT Office Visit Department of Palliative Care in [place], [place] [address] [place] [address] Meghna Osorio M.D. [address] [place] [address] 08/11/2025 9:00 AM CDT Nurse Only Section of Infectious Diseases in [place], [place] [address] [place] [address] Jessica Rousseau M.B.B.S. [address] [place] [phone] 08/11/2025 1:00 PM CDT Clinical Support Department of Palliative Care in [place], [place] [address] [place] [address] Uma Aly APRN, C.N.P., M.S.N. [address] [place] [phone] 08/13/2025 10:00 AM CDT Lab Department of Laboratory Medicine and Pathology, [facility] in [place], [place] [address] [place] [phone] Jessica Rousseau M.B.B.S. [address] [place] [phone] 08/13/2025 10:30 AM CDT Office Visit Pedro Aravind sanchez [facility] for Transplantation and Clinical Regeneration in [place], [place] [address] [place] [phone] Jessica Rousseau M.B.B.S. [address] [place] [phone] Nelli Parker, Pharm.D., R.Ph. [address] [place] [phone] 08/13/2025 11:00 AM CDT Nurse Only Pedro Aravind sanchez [facility] for Transplantation and Clinical Regeneration in [place], [place] [address] [place] [address] Jessica Rousseau M.B.B.S. [address] [place] [phone] 08/13/2025 11:30 AM CDT Office Visit [facility] Transplantation and Clinical Regeneration in [place], [place] [address] [place] [phone] Jessica Rousseau M.B.B.S. [address] [place] [phone] 08/13/2025 3:00 PM CDT Clinical Support Department of Palliative Care in [place], [place] [address] [place] [phone] Meghan Osorio M.D. [address] [place] [phone] Mary Garcia M.S.W., L.I.C.S.W. [address] [place] [phone] 08/25/2025 8:00 AM CDT Telemedicine [facility] Transplantation and Clinical Regeneration in [place], [place] [address] [place] [phone] Jessica Rousseau M.B.B.S. [address] [place] [phone] documented as of this encounter Visit Diagnoses Not on filedocumented in this encounter Additional Health Concerns Infection Onset Date Last Indicated Resolved Time Protective Environment 03/02/2023 03/02/2023 Assessment Noted Time PHQ-9 Depression Total Score: 12 025 9:42 AM CDT documented as of this encounter Care Teams Boiler Maker Relationship Specialty Start Date End Date Renzo Andres M.D. [address] [place], [place] [address] [phone] PCP - General Family Medicine 04/25/23 documented as of this encounter
--- OUTSIDE RECORDS SUMMARY | 2025-08-09 14:35 | XMS_ITS | Encounter Summary ---
Author Organization [facility] Address [address] [place] [address] Care Team Providers Care Analytics Director Name Role Phone Renzo Andres M.D. Primary Care Provider Encounter Details Date Type Department Care Team (Late st Contact Info) Description 07/10/2025 Clinical Communication [facility], Ninth Floor [address] [place] [phone] Lucy Stout, R.N., BMT-CN, O.C.N. Social History [...] your living situation today? I have a [facility] place to live 07/02/2025 Education Answer Date Recorded What is the highest level of school you have completed or the highest degree you have received? Some college, no degree 04/24/2019 Comments No Sex and Gender Information Value Date Recorded Sex Assigned at Female 12/26/2018 8:37 PM FACILITIES PROJECT MANAGER Legal Sex Female 2:43 PM FACILITIES PROJECT MANAGER Gender Identity Female 12/26/2018 8:37 PM FACILITIES PROJECT MANAGER Sexual Orientation Choose not to [...] Office Visit Department of Palliative Care in [place], [place] [address] [place] [phone] Meghan Osorio M.D. [address] [place] [phone] 08/11/2025 9:00 AM CDT Nurse Only Section of Infectious Diseases in [place], [place] [address] [place] [phone] Jessica Rousseau M.B.B.S. [address] [place] [phone] 08/11/2025 1:00 PM CDT Clinical Support Department of Palliative Care in [place], [place] [address] [place] [address] Uma Aly APRN, C.N.P., M.S.N. [address] [place] [phone] 08/13/2025 10:00 AM CDT Lab Department of Laboratory Medicine and Pathology, [facility], in [place], [place] [address] [place] [phone] Jessica Rousseau M.B.B.S. [address] [place] [phone] 08/13/2025 10:30 AM CDT [facility] [place], [place] [address] [place] [phone] Jessica Rousseau M.B.B.S. [address] [place] [phone] Nelli Parker, Pharm.D., R.Ph. [address] [place] [phone] 08/13/2025 11:00 AM CDT Nurse Only Pedro sanchez [facility] for Trans[facility] in [place], [place] [address] [place] [phone] Jessica Rousseau M.B.B.S. [address] [place] [phone] 08/13/2025 11:30 AM CDT [facility] [place], [place] [address] [place] [phone] Jessica Rousseau M.B.B.S. [address] [place] [phone] 08/13/2025 3:00 PM CDT Clinical Support Department of Palliative Care in [place], [place] [address] [place] [phone] Meghan Osorio M.D. [address] [place] [phone] Mary Garcia M.S.W., L.I.C.S.W. [address] [place] [phone] 08/25/2025 8:00 AM CDT Telemedicine Pedro sanchez [facility] in [place], [place] [address] [place] [phone] Jessica Rousseau M.B.B.S. [address] [place] [phone] documented as of this encounter Visit Diagnoses Not on filedocumented in this encounter Additional Health Concerns Infection Onset Date Last Indicated Resolved Time Protective Environment 03/02/2023 03/02/2023 Assessment Noted Time PHQ-9 Depression Total Score: 12 025 9:42 AM CDT documented as of this encounter Care Teams Analytics Director Relationship Specialty Start Date End Date Renzo Andres M.D. [address] [place] [address] [place] [phone] PCP - General Family Medicine 04/25/23 documented as of this encounter
--- OUTSIDE RECORDS SUMMARY | 2025-08-09 14:35 | XMS_ITS | Encounter Summary ---
Author Organization [facility] Address [address] [place] [address] Care Team Providers Care Eating Disorder Psychologist Name Role Phone Renzo Andres M.D. Primary Care Provider [phone] Encounter Details Date Type Department Care Team (Latest Contact Info) Description 07/02/2025 Clinical Communication Pedro Nazario [facility] for [facility] Clinical Regeneration in [place], [place] [address] [place] [phone] Jessica Roussaeu M.B.B.S. [address] [place] [address] Social History Tobacco Use Types Packs/Day Years [...] for daily living? No 07/02/2025 [facility] Utilities Answer Date Recorded In the past 12 months has th [employer] electric, gas, oil, or water company threatened to shut off services in your home? No 07/02/2025 Depression Answer Date Recor ded PHQ-9 Total Score (max 27) 12 07/08 Housing Stability Answer Date Recorded What is your living situation today? I have a [facility] place to live 07/02/2025 Education Answer Date Recorded What is the highest level of school you have completed or the highest degree you have received? Some college, no degree 04/24/2019 Comments No Sex and Gender Information Value Date Recorded Sex Assigned at Female 12/26/2018 8:37 PM LEGAL BILLING COORDINATOR Legal Sex Female 2:43 PM LEGAL BILLING COORDINATOR Gender Identity Female 12/26/2018 8:37 PM LEGAL BILLING COORDINATOR Sexual Orientation Choose not to disclose 2020 3:46 PM CDT documented as of this encounter Plan of Treatment Upcoming Encounters Date Type Department Care Team (Late st Contact Info) Description 08/11/2025 8:00 AM CDT Office Visit Department of Palliative Care in [place], [place] [address] [place] [phone] Meghan Osorio M.D. 200 [place] [phone] 08/11/2025 9:00 AM CDT Nurse Only Section of Infectious Diseases in [place], [place] [address] [place] [phone] Jessica Rousseau M.B.B.S. [address] [place] [phone] 08/11/2025 1:00 PM CDT Clinical Support Department of Palliative Care in [place], [place] [address] [place] [phone] Uma Aly APRN, C.N.P., M.S.N. [address] [place] [phone] 08/13/2025 10:00 AM CDT Lab Department of Laboratory Medicine and Pathology, [facility], in [place], [place] [address] [place] [phone] Jessica Rousseau M.B.B.S. [address] [place] [phone] 08/13/2025 10:30 AM CDT [facility] in [place], [place] [address] [place] [phone] Jessica Rousseau M.B.B.S. [address] [place] [phone] Nelli Parker, Pharm.D., R.Ph. [address] [place] [phone] 08/13/2025 11:00 AM CDT Nurse Only [facility] in [place], [place] [address] [place] [phone] Jessica Rousseau M.B.B.S. [address] [place] [phone] 08/13/2025 11:30 AM CDT Office Visit [facility] Transplantation and Clinical Regeneration in [place], [place] [address] [place] [phone] Jessica Rousseau M.B.B.S. [address] [place] [phone] 08/13/2025 3:00 PM CDT Clinical Support Department of Palliative Care in [place], [place] [address] [place] [phone] Meghan Osorio M.D. [address] [place] [phone] Mary Garcia M.S.W., L.I.C.S.W. [address] [place] [phone] 08/25/2025 8:00 AM CDT Telemedicine [facility] Transplantation and Clinical Regeneration in [place], [place] [address] [place] [phone] Jessica Rousseau M.B.B.S. [address] [place] [phone] documented as of this encounter Visit Diagnoses Not on filedocumented in this encounter Additional Health Concerns Infection Onset Date Last Indicated Resolved Time Protective Environment 03/02/2023 03/02/2023 Assessment Noted Time PHQ-9 Depression Total Score: 2 12/10/19 25 2:46 PM LEGAL BILLING COORDINATOR documented as of this encounter Care Teams Eating Disorder Psychologist Relationship Specialty Start Date End Date Renzo Andres M.D. [address] [place] [address] [place] [phone] PCP - General Family Medicine 04/25/23 documented as of this encounter
--- OUTSIDE RECORDS SUMMARY | 2025-08-09 14:35 | XMS_ITS | Encounter Summary ---
Author Organization [facility] Address [address] [place] [address] Care Team Providers Care Pipe Fitter Supervisor Maintenance Name Role Phone Renzo Andres M.D. Primary Care Provider Reason for Referral * Outpatient (Routine) - Authorized Specialty Diagnoses / Procedures Referred By Contac t Referred To Contact Pharmacy Arlen James APRN, C.N.P., D.N.P. [address] [place] [phone] Phone: tel: fax: [facility] Referral ID Status Reason Start Date Expiration Date V isits Requested Visits Authorized [id number] Authorized 06/08/2025 12/08/2026 1 1 Scheduling Instructions Please schedule with pharmacist for 30 minutes. Please schedule [facility]/RN joint visit on 06/10/25. Encounter Details Date Type Department Care Team (Latest Contact Info) Description 06/08/2025 Clinical Communication Pedro [facility] in [place], [place] [address] [place] [phone] Jessica Rousseau M.B.B.S. [address] [place] [address] Social History Tobacco Use Types Packs/Day Years [...] for daily living? No 07/02/2025 [facility] Utilities Answer Date Recorded In the past 12 months has [employer] electric, gas, oil, or water company threatened to shut off services in your home? No 07/02/2025 Depression Answer Date Recor ded PHQ-9 Total Score (max 27) 12 07/08 Housing Stability Answer Date Recorded What is your living situation today? I have a [facility] place to live 07/02/2025 Education Answer Date Recorded What is the highest level of school you have completed or the highest degree you have received? Some college, no degree 04/24/2019 Comments No Sex and Gender Information Value Date Recorded Sex Assigned at Female 12/26/2018 8:37 PM WAITER/WAITRESS FORMAL Legal Sex Female 2:43 PM WAITER/WAITRESS FORMAL Gender Identity Female 12/26/2018 8:37 PM WAITER/WAITRESS FORMAL Sexual Orientation Choose not to disclose 2020 [...] today as we cannot schedule this at [facility] locations. She will let us know if she is having rouble with this. She is willing to be seen in clinic on Sunday06/10/25 since she Danish already be in [place] for other appointments. Will request this and send orders to [facility] group for review. documented in this encounter Plan of Treatment Upcoming Encounters Date Type Department Care Team (Late st Contact Info) Description 08/11/2025 8:00 AM CDT Office Visit Department of Palliative Care in [place], [place] [address] [place] [phone] Meghan Osorio M.D. [address] [place] [phone] 08/11/2025 9:00 AM CDT Nurse Only Section of Infectious Diseases in [place], [place] [address] [place] [phone] Jessica Rousseau M.B.B.S. [address] [place] [phone] 08/11/2025 1:00 PM CDT Clinical Support Department of Palliative Care in [place], [place] [address] [place] [phone] Uma Aly APRN, C.NKatalinaP., M.S.N. [address] [place] [phone] 08/13/2025 10:00 AM CDT Lab Department of Laboratory Medicine and Pathology, [facility], in [place], [place] [address] [place] [phone] Jessica Rousseau M.B.B.S. [address] [place] [phone] 08/13/2025 10:30 AM CDT [facility] in [place], [place] [address] [place] [phone] Jessica Rousseau M.B.B.S. [address] [place] [phone] Nelli Parker, Pharm.D., R.Ph. [address] [place] [phone] 08/13/2025 11:00 AM CDT Nurse Only [facility] in [place], [place] [address] [place] [phone] Jessica Rousseau M.B.B.S. [address] [place] [phone] 08/13/2025 11:30 AM CDT Office Visit [facility] Transplantation and Clinical Regeneration in [place], [place] [address] [place] [address] Jessica Rousseau M.B.B.S. [address] [place] [phone] 08/13/2025 3:00 PM CDT Clinical Support Department of Palliative Care in [place], [place] [address] [place] [phone] Meghan Osorio M.D. [address] [place] [phone] Mary Garcia M.S.W., L.I.C.S.W. [address] [place] [phone] 08/25/2025 8:00 AM CDT Telemedicine [facility] Transplantation and Clinical Regeneration in [place], [place] [address] [place] [phone] Jessica Rousseau M.B.B.S. [address] [place] [phone] Scheduled Orders Name Type Priority Associated Diagnoses [...] Total Score: 2 12/10/19 25 2:46 PM WAITER/WAITRESS FORMAL documented as of this encounter Care Teams Pipe Fitter Supervisor Maintenance Relationship Specialty Start Date End Date Renzo Andres M.D. [address] [place] [phone] PCP - General Family Medicine 04/25/23 documented as of this encounter
--- OUTSIDE RECORDS SUMMARY | 2025-08-09 14:35 | XMS_ITS | Encounter Summary ---
Author Organization [facility] Address [address] [place] [address] Care Team Providers Care Overseamer Name Role Phone Renzo Andres M.D. Primary Care Provider Encounter Details Date Type Department Care Team (Late st Contact Info) Description 07/02/2025 Clinical Communication [facility], Ninth Floor [address] [place] [address] Jaya Perkins, M.S.N., R.N. [address] [place] [phone] Social History Tobacco Use Types Packs/Day Years [...] the past 12 months has th e [employer], gas, oil, or water company threatened to shut off services in your home? No 07/02/2025 Depression Answer Date Recor ded PHQ-9 Total Score (max 27) 2 12/10 Housing Stability Answer Date Recorded What is your living situation today? I have a [facility] place to live 07/02/2025 Education Answer Date Recorded What is the highest level of school you have completed or the highest degree you have received? Some college, no degree 04/24/2019 Comments No Sex and Gender Information Value Date Recorded Sex Assigned at Female 12/26/2018 8:37 PM INFORMATION TECHNOLOGY SECURITY ANALYST Legal Sex Female 2:43 PM INFORMATION TECHNOLOGY SECURITY ANALYST Gender Identity Female 12/26/2018 8:37 PM INFORMATION TECHNOLOGY SECURITY ANALYST Sexual Orientation Choose not to disclose [...] Office Visit Department of Palliative Care in [place], [place] [address] [place] [phone] Meghan Osorio M.D. [address] [place] [phone] 08/11/2025 9:00 AM CDT Nurse Only Section of Infectious Diseases in [place], [place] [address] [place] [phone] Jessica Rousseau M.B.B.S. [address] [place] [phone] 08/11/2025 1:00 PM CDT Clinical Support Department of Palliative Care in [place], [place] [address] [place] [phone] Uma Aly APRN, C.NLuigi., M.S.N. [address] [place] [phone] 08/13/2025 10:00 AM CDT Lab Department of Laboratory Medicine and Pathology, [facility], in [place], [place] [address] [place] [phone] Jessica Rousseau M.B.B.S. [address] [place] [phone] 08/13/2025 10:30 AM CDT [facility] in [place], [place] [address] [place] [phone] Jessica Rousseau M.B.B.S. [address] [place] [phone] Nelli Parker Pharm.D., R.Ph. [address] [place] [phone] 08/13/2025 11:00 AM CDT Nurse Only [facility] for Transplantation and Clinical Regeneration in [place], [place] [address] [place] [phone] Jessica Rousseau M.B.B.S. [address] [place] [address] [phone] 08/13/2025 11:30 AM CDT Office Visit [facility] in [place], [place] [address] [place] [phone] Jessica Rousseau M.B.B.S. [address] [place] [phone] 08/13/2025 3:00 PM CDT Clinical Support Department of Palliative Care in [place], [place] [address] [place] [phone] Meghan Osorio M.D. [address] [place] [phone] Mary Garcia M.S.Vivi., L.I.C.S.W. [address] [place] [phone] 08/25/2025 8:00 AM CDT Telemedicine [facility] for Transplantation and Clinical Regeneration in [place], [place] [address] [place] [address] [phone] Jessica Rousseau M.B.B.S. [address] [place] [phone] documented as of this encounter Visit Diagnoses Not on filedocumented in this encounter Additional Health Concerns Infection Onset Date Last Indicated Resolved Time Protective Environment 03/02/2023 03/02/2023 Assessment Noted Time PHQ-9 Depression Total Score: 2 12/10/19 25 2:46 PM INFORMATION TECHNOLOGY SECURITY ANALYST documented as of this encounter Care Teams Overseamer Relationship Specialty Start Date End Date Renzo Andres M.D. [address] [place] [phone] PCP - General Family Medicine 04/25/23 documented as of this encounter
--- OUTSIDE RECORDS SUMMARY | 2025-08-09 14:35 | XMS_ITS | Encounter Summary ---
Author Organization [facility] Address [address] [place] [address] Care Team Providers Care Splitting Machine Tender Name Role Phone Renzo Andres M.D. Primary Care Provider Reason for Visit * Reason Onset Date Comments Flexible Sigmoidoscopy 06/29/2025 Abdominal Pain 06/29/2025 Encounter Details Date Type Department Care Team (Latest Contact Info) Description 06/29/2025 Clinical Communication Division of Hematology in [place], [place] [address] [place] [phone] Jessica Rousseau M.B.B.S. [address] [place] [phone] Flexible Sigmoidoscopy; Abdominal Pain Social History Tobacco [...] for daily living? No 07/02/2025 [facility] Utilities Answer Date Recorded In the past 12 months has [employer], gas, oil, or water [employer] threatened to shut off services in your [...] Sex Assigned at Female 12/26/2018 8:37 PM BED AND BREAKFAST INNKEEPER Legal Sex Female 2:43 PM BED AND BREAKFAST INNKEEPER Gender Identity Female 12/26/2018 8:37 PM BED AND BREAKFAST INNKEEPER Sexual Orientation Choose not to disclose 2020 [...] with no relief. * Telephone Encounter - Moinca Napier R.N., DANNI - 06/29/2025 12:14 PM [...] Office Visit Department of Palliative Care in [place], [place] [address] [place] [phone] Meghan Osorio M.D. [address] [place] [phone] 08/11/2025 9:00 AM CDT Nurse Only Section of Infectious Diseases in [place], [place] [address] [place] [phone] Jessica Rousseau M.B.B.S. [address] [place] [address] [phone] 08/11/2025 1:00 PM CDT Clinical Support Department of Palliative Care in [place], [place] [address] [place] [phone] Uma Aly APRN, C.N.P., M.S.N. [address] [place] [phone] 08/13/2025 10:00 AM CDT Lab Department of Laboratory Medicine and Pathology, [facility] in [place], [place] [address] [place] [phone] Jessica Rousseau M.B.B.S. [address] [place] [phone] 08/13/2025 10:30 AM CDT [facility] in [place], [place] [address] [place] [phone] Jessica Rousseau M.B.B.S. [address] [place] [phone] Nelli Parker, Pharm.D., R.Ph. [address] [place] [phone] 08/13/2025 11:00 AM CDT Nurse Only [facility] for Transplantation and Clinical Regeneration in [place], [place] [address] [place] [phone] Jessica Rousseau M.B.B.S. [address] [place] [phone] 08/13/2025 11:30 AM CDT Office Visit Pedro Lanza laura [facility] for Transplantation and Clinical Regeneration in [place], [place] [address] [place] [phone] Jessica Rousseau M.B.B.S. [address] [place] [phone] 08/13/2025 3:00 PM CDT Clinical Support Department of Palliative Care in [place], [place] [address] [place] [phone] Meghan Osorio M.D. [address] [place] [phone] Mary Garcia M.SLavern., Radha.S.W. [address] [place] [address] [phone] 08/25/2025 8:00 AM CDT Telemedicine Pedro sanchez [facility] for Transplantation and Clinical Regeneration in [place], [place] [address] [place] [phone] Jessiac Rousseau M.B.B.S. 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 NPAmanda: [phone] [address] [place] [address] [place] [phone] PCP - General Family Medicine 04/25/23 documented as of this encounter
--- OUTSIDE RECORDS SUMMARY | 2025-08-09 14:35 | XMS_ITS | Encounter Summary ---
Author Organization [facility] Address [address] [place] [address] Care Team Providers Care Foot Roentgenologist Name Role Phone Renzo Andres M.D. Primary Care Provider [phone] Reason for Referral * Outpatient (Routine) - Closed Specialty Diagnoses / Procedures Referred By Contact Referred To Contact Gastroenterology and Hepatology Diagnoses Transplant Bone Marrow Allogeneic (HCC) Abdominal Pain Medication Management Issue Transplant Stem Cell (HCC) Bone Marrow Transplant Status (HCC) Jessica Avila APRN, C.N.P., M.S.N. [address] [place] [address] Phone: tel: fax: [place] Referral ID Status Reason Start Date Expiration Date V isits Requested Visits Authorized [id number] Closed Specialty Services Required 07/06/2025 01/05/2027 1 1 Scheduling Instructions GIH consult should be scheduled after all testing Reason for Visit * Reason Onset Date Comments Post Hospital Follow-up 07/06/2025 Encounter Details Date Type Department Care Team (Latest Contact Info) Description 07/06/2025 Clinical Communication [facility], Ninth Floor [address] [place] [address] Jessica Avila APRN, C.N.P., M.S.N. [address] [place] [address] Post Hospital Follow-up Social History Tobacco Use [...] things needed for daily living? No 07/02/2025 [facility] Utilities [...] have a [facility] place to live 07/02/2025 Education Answer Date Recorded What is the highest level of school you have completed or the highest degree you have received? Some college, no degree 04/24/2019 Comments No Sex and Gender Information Value Date Recorded Sex Assigned at Female 12/26/2018 8:37 PM DIRECTOR OF WEB MARKETING Legal Sex Female 2:43 PM DIRECTOR OF WEB MARKETING Gender Identity Female 12/26/2018 8:37 PM DIRECTOR OF WEB MARKETING Sexual Orientation Choose not to disclose 2020 3:46 PM CDT documented as of this encounter Plan of Treatment Upcoming Encounters Date Type Department Care Team (Late st Contact Info) Description 08/11/2025 8:00 AM CDT Office Visit Department of Palliative Care in [place], [place] [address] [place] [phone] Meghan Osorio M.D. [address] [place] [phone] 08/11/2025 9:00 AM CDT Nurse Only Section of Infectious Diseases in [address] [phone] Jessica Rousseau M.B.B.S. [address] [place] [phone] 08/11/2025 1:00 PM CDT Clinical Support Department of Palliative Care in [place], [place] [address] [place] [phone] Uma Aly APRN, C.N.P., M.S.N. [address] [place] [phone] 08/13/2025 10:00 AM CDT Lab Department of Laboratory Medicine and Pathology, [facility], in [place], [place] [address] [place] [phone] Jessica Rousseau M.B.B.S. [address] [place] [phone] 08/13/2025 10:30 AM CDT Office Visit [facility] Trans[facility] and Clinical Regeneration in [place], [place] [address] [place] [phone] Jessica Rousseau M.B.B.S. [address] [place] [phone] Nelli Parker PharmAnnalise, R.Ph. [address] [place] [phone] 08/13/2025 11:00 AM CDT Nurse Only [facility] [facility] Transplantation and Clinical Regeneration in [place], [place] [address] [place] [phone] Jessica Rousseau M.B.B.S. [address] [place] [phone] 08/13/2025 11:30 AM CDT Office Visit [facility] Transplantation and Clinical Regeneration in [place], [place] [address] [place] [phone] Jessica Rousseau M.B.B.S. [address] [place] [phone] 08/13/2025 3:00 PM CDT Clinical Support Department of Palliative Care in [place], [place] [address] [place] [phone] Meghan Osorio M.D. [address] [place] [phone] Mary Garcia M.S.W., L.I.C.S.W. [address] [place] [phone] 08/25/2025 8:00 AM CDT Telemedicine [facility] in [place], [place] [address] [place] [address] Jessica Rousseau M.B.B.S. [address] [place] [address] Scheduled Referrals Name Type Priority Associated Diagnoses [...] 2 12/10/19 25 2:46 PM DIRECTOR OF WEB MARKETING documented as of this encounter Care Teams Foot Roentgenologist Relationship Specialty Start Date End Date Renzo Andres M.D. [address] [place] [phone] PCP - General Family Medicine 04/25/23 documented as of this encounter
--- OUTSIDE RECORDS SUMMARY | 2025-08-09 14:35 | XMS_ITS | Encounter Summary ---
Author Organization [facility] Address [address] [place] [address] Care Team Providers Care Multimedia Project Manager Name Role Phone Renzo Andres M.D. Primary Care Provider [phone] Encounter Details Date Type Department Care Team (Latest Contact Info) Description 07/02/2025 Clinical Communication Pedro Naz[facility] for Transplantation and Clinical Regeneration in [place], [place] [address] [place] [phone] Jessica Rousseau M.B.B.S. [address] [place] [address] Social History Tobacco Use Types Packs/Day Years [...] for daily living? No 07/02/2025 [facility] Utilities Answer Date Recorded In the past 12 months has th [employer] electric, gas, oil, or water company threatened to shut off services in your home? No 07/02/2025 Depression Answer Date Recor ded PHQ-9 Total Score (max 27) 12 07/08 Housing Stability Answer Date Recorded What is your living situation today? I have a [facility] place to live 07/02/2025 Education Answer Date Recorded What is the highest level of school you have completed or the highest degree you have received? Some college, no degree 04/24/2019 Comments No Sex and Gender Information Value Date Recorded Sex Assigned at Female 12/26/2018 8:37 PM PERFORMANCE ARCHITECT Legal Sex Female 2:43 PM PERFORMANCE ARCHITECT Gender Identity Female 12/26/2018 8:37 PM PERFORMANCE ARCHITECT Sexual Orientation Choose not to disclose 2020 3:46 PM CDT documented as of this encounter Plan of Treatment Upcoming Encounters Date Type Department Care Team (Late st Contact Info) Description 08/11/2025 8:00 AM CDT Office Visit Department of Palliative Care in [place], [place] 200 [place] [address] Meghan Osorio M.D. 200 [place] [address] 08/11/2025 9:00 AM CDT Nurse Only Section of Infectious Diseases in [place], [place] [address] [place] [phone] Jessica Rousseau M.B.B.S. [address] [place] [phone] 08/11/2025 1:00 PM CDT Clinical Support Department of Palliative Care in [place], [place] [address] [place] [phone] Uma Aly APRN, C.N.P., M.S.N. [address] [place] [address] [phone] 08/13/2025 10:00 AM CDT Lab Department of Laboratory Medicine and Pathology, [facility], in [place], [place] [address] [place] [phone] Jessica Rousseau M.B.B.S. [address] [place] [phone] 08/13/2025 10:30 AM CDT [facility] in [place], [place] [address] [place] [address] Jessica Rousseau M.B.B.S. [address] [place] [phone] Nelli Parker, Pharm.D., R.Ph. [address] [place] [phone] 08/13/2025 11:00 AM CDT Nurse Only [facility] in [place], [place] [address] [place] [address] Jessica Rousseau M.B.B.S. [address] [place] [phone] 08/13/2025 11:30 AM CDT Office Visit [facility] [place] Transplantation and Clinical Regeneration in [place], [place] [address] [place] [address] Jessica Rousseau M.B.B.S. [address] [place] [phone] 08/13/2025 3:00 PM CDT Clinical Support Department of Palliative Care in [place], [place] [address] [place] [phone] Meghan Osorio M.D. [address] [place] [phone] Mary Garcia M.S.W., L.I.C.S.W. [address] [place] [phone] 08/25/2025 8:00 AM CDT Telemedicine [facility] [place] Transplantation and Clinical Regeneration in [place], [place] [address] [place] [phone] Jessica Rousseau M.B.B.S. [address] [place] [phone] documented as of this encounter Visit Diagnoses Not on filedocumented in this encounter Additional Health Concerns Infection Onset Date Last Indicated Resolved Time Protective Environment 03/02/2023 03/02/2023 Assessment Noted Time PHQ-9 Depression Total Score: 2 12/10/19 25 2:46 PM PERFORMANCE ARCHITECT documented as of this encounter Care Teams Multimedia Project Manager Relationship Specialty Start Date End Date Renzo Andres M.D. [address] [place] [address] [place] [address] PCP - General Family Medicine 04/25/23 documented as of this encounter
--- OUTSIDE RECORDS SUMMARY | 2025-08-09 14:36 | XMS_ITS | Encounter Summary ---
Author Organization [facility] Address [address] [place] [address] Care Team Providers Care Interactive Digital Media Specialist Name Role Phone Renzo Andres M.D. Primary Care Provider Reason for Referral * Specialty Diagnoses / Procedures Referred By Estefania acosta Referred To Contact Diagnoses Transplant Stem Cell (HCC) [facility] [address] [place] [address] Phone: tel: Health System Referral ID Status Reason Start Date Expiration Date Visits Re quested Visits Authorized Encounter Details Date Type Department Care Team (Late st Contact Info) Description 06/22/[address] [facility], Ninth Floor [address] [place] [phone] Vikki Duarte, RKatalinaNKatalina [address] [place] [address] Transplant Stem Cell (HCC) (Primary [...] for daily living? No 07/02/2025 [facility] Utilities Answer Date Recorded In the past 12 months has [facility] electric, gas, oil, or water company threatened to shut off services in your home? No 07/02/2025 Depression Answer Date Recor ded PHQ-9 Total Score (max 27) 12 07/08 Housing Stability Answer Date Recorded What is your living situation today? I have a [facility] place to live 07/02/2025 Education Answer Date Recorded What is the highest level of school you have completed or the highest degree you have received? Some college, no degree 04/24/2019 Comments No Sex and Gender Information Value Date Recorded Sex Assigned at Female 12/26/2018 8:37 PM SENIOR WEB ANALYST Legal Sex Female 2:43 PM SENIOR WEB ANALYST Gender Identity Female 12/26/2018 8:37 PM SENIOR WEB ANALYST Sexual Orientation Choose not to disclose 2020 3:46 PM CDT documented as of this encounter Plan of Treatment Upcoming Encounters Date Type Department Care Team (Late st Contact Info) Description 08/11/2025 8:00 AM CDT Office Visit Department of Palliative Care in [place], [place] [address] [place] [phone] Meghan Osorio M.D. [address] [place] [phone] 08/11/2025 9:00 AM CDT Nurse Only Section of Infectious Diseases in [place], [place] [address] [place] [phone] Jessica Rousseau M.B.B.S. [address] [place] [phone] 08/11/2025 1:00 PM CDT Clinical Support Department of Palliative Care in [place], [place] [address] [place] [phone] Uma Aly APRN, C.N.P., M.S.N. [address] [place] [phone] 08/13/2025 10:00 AM CDT Lab Department of Laboratory Medicine and Pathology, [facility] in [place], [place] [address] [place] [phone] Jessica Rousseau M.B.B.S. [address] [place] [phone] 08/13/2025 10:30 AM CDT Office Visit Pedro sanchez [facility] for Transplantation and Clinical Regeneration in [place], [place] [address] [place] [phone] Jessica Rousseau M.B.B.S. [address] [place] [phone] Nelli Parker, Pharm.D., R.Ph. [address] [place] [phone] 08/13/2025 11:00 AM CDT Nurse Only [facility] in [place], [place] [address] [place] [phone] Jessica Rousseau M.B.B.S. [address] [place] [address] [phone] 08/13/2025 11:30 AM CDT [facility] in [place], [place] [address] [place] [phone] Jessica Rousseau M.B.B.S. [address] [place] [phone] 08/13/2025 3:00 PM CDT Clinical Support Department of Palliative Care in [place], [place] [address] [place] [phone] Meghan Osorio M.D. [address] [place] [phone] Mary Garcia M.SLavern., L.I.C.S.W. [address] [place] [phone] 08/25/2025 8:00 AM CDT Telemedicine [facility] Transplantation and Clinical Regeneration in [place], [place] [address] [place] [phone] Jessica Rousseau M.B.B.S. [address] [place] [phone] Scheduled Referrals Name Type Priority Associated Diagnoses [...] Score: 2 12/10/19 25 2:46 PM SENIOR WEB ANALYST documented as of this encounter Care Teams Interactive Digital Media Specialist Relationship Specialty Start Date End Date Renzo Andres M.D. [address] [place] [phone] PCP - General Family Medicine 04/25/23 documented as of this encounter
--- OUTSIDE RECORDS SUMMARY | 2025-08-09 14:36 | XMS_ITS | Encounter Summary ---
Author Organization [facility] Address [address] [place] [address] Care Team Providers Care Osd Clerk Name Role Phone Renzo Andres M.D. Primary Care Provider Reason for Visit * Reason Comments Med Refill Encounter Details Date Type Department Care Team (Late st Contact Info) Description 07/16/2025 [facility] in [place], [place] [address] [place] [phone] Becky Hernandez APRN, C.N.P., D.N.P. [address] [place] [phone] Med Refill Social History Tobacco Use Types [...] things needed for daily living? No 07/02/2025 [facility] Utilities Answer Date Recorded In the past 12 months has th [employer] electric, gas, oil, or water [employer] threatened to shut off services in your home? No 07/02/2025 Depression Answer Date Recor ded PHQ-9 Total Score (max 27) 12 07/08 Housing Stability Answer Date Recorded What is your living situation today? I have a [facility] place to live 07/02/2025 Education Answer Date Recorded What is the highest level of school you have completed or the highest degree you have received? Some college, no degree 04/24/2019 Comments No Sex and Gender Information Value Date Recorded Sex Assigned at Female 12/26/2018 8:37 PM SHOTGUN SHELL ASSEMBLY MACHINE OPERATOR Legal Sex Female 2:43 PM SHOTGUN SHELL ASSEMBLY MACHINE OPERATOR Gender Identity Female 12/26/2018 8:37 PM SHOTGUN SHELL ASSEMBLY MACHINE OPERATOR Sexual Orientation Choose not to [...] Office Visit Department of Palliative Care in [place], [place] [address] [place] [phone] Meghan Osorio M.D. [address] [place] [phone] 08/11/2025 9:00 AM CDT Nurse Only Section of Infectious Diseases in [place], [place] [address] [place] [phone] Jessica Rousseau M.B.B.S. [address] [place] [phone] 08/11/2025 1:00 PM CDT Clinical Support Department of Palliative Care in [place], [place] [address] [place] [phone] Uma Aly APRN, C.N.P., M.S.N. [address] [place] [phone] 08/13/2025 10:00 AM CDT Lab Department of Laboratory Medicine and Pathology, [facility], in [place], [place] [address] [place] [phone] Jessica Rousseau M.B.B.S. [address] [place] [phone] 08/13/2025 10:30 AM CDT [facility] in [place], [place] [address] [place] [phone] Jessica Rousseau M.B.B.S. [address] [place] [phone] Nelli Parker Pharm.D., R.Ph. [address] [place] [address] [phone] 08/13/2025 11:00 AM CDT Nurse Only [facility] Clinical Regeneration in [place], [place] [address] [place] [phone] Jessica Rousseau M.B.B.S. [address] [place] [phone] 08/13/2025 11:30 AM CDT Office Visit [facility] Transplantation and Clinical Regeneration in [place], [place] [address] [place] [phone] Jessica Rousseau M.B.B.S. [address] [place] [phone] 08/13/2025 3:00 PM CDT Clinical Support Department of Palliative Care in [place], [place] [address] [place] [phone] Meghan Osorio M.D. [address] [place] [phone] Mary Garcia M.S.W., L.I.C.S.W. [address] [place] [address] [phone] 08/25/2025 8:[address] [facility] Transplantation and Clinical Regeneration in [place], [place] [address] [place] [phone] Jessica Rousseau M.B.B.S. [address] [place] [address] [phone] documented as of this encounter Visit Diagnoses Not on filedocumented in this encounter Additional Health Concerns Infection Onset Date Last Indicated Resolved Time Protective Environment 03/02/2023 03/02/2023 Assessment Noted Time PHQ-9 Depression Total Score: 12 025 9:42 AM CDT documented as of this encounter Care Teams Osd Clerk Relationship Specialty Start Date End Date Renzo Andres M.D. [address] [place] [address] [place] [phone] PCP - General Family Medicine 04/25/23 documented as of this encounter
--- OUTSIDE RECORDS SUMMARY | 2025-08-09 14:36 | XMS_ITS | Encounter Summary ---
Author Organization [facility] Address [address] [place] [address] Care Team Providers Care Disassembler Name Role Phone Renzo Andres M.D. Primary Care Provider [phone] Encounter Details Date Type Department Care Team (Late st Contact Info) Description 07/19/2025 Clinical Communication [facility], Ninth Floor [address] [place] [address] Jaya Perkins, M.S.N., R.N. [address] [place] [phone] Social History Tobacco Use Types Packs/Day Years [...] for daily living? No 07/02/2025 [facility] Utilities Answer Date Recorded In the past 12 months has th [employer] electric, gas, oil, or water company threatened to shut off services in your home? No 07/02/2025 Depression Answer Date Recor ded PHQ-9 Total Score (max 27) 12 07/08 Housing Stability Answer Date Recorded What is your living situation today? I have a [facility] place to live 07/02/2025 Education Answer Date Recorded What is the highest level of school you have completed or the highest degree you have received? Some college, no degree 04/24/2019 Comments No Sex and Gender Information Value Date Recorded Sex Assigned at Female 12/26/2018 8:37 PM DENTAL LABORATORY ASSISTANT Legal Sex Female 2:43 PM DENTAL LABORATORY ASSISTANT Gender Identity Female 12/26/2018 8:37 PM DENTAL LABORATORY ASSISTANT Sexual Orientation Choose not to disclose [...] Office Visit Department of Palliative Care in [place], [place] [address] [place] [phone] Meghan Osorio M.D. [address] [place] [phone] 08/11/2025 9:00 AM CDT Nurse Only Section of Infectious Diseases in [address] [phone] Jessica Rousseau M.B.B.S. [address] [place] [phone] 08/11/2025 1:00 PM CDT Clinical Support Department of Palliative Care in [place], [place] [address] [place] [phone] Uma Aly APRN, C.N.P., M.S.N. [address] [place] [phone] 08/13/2025 10:00 AM CDT Lab Department of Laboratory Medicine and Pathology, [facility], in [place], [place] [address] [place] [phone] Jessica Rousseau M.B.B.S. [address] [place] [phone] 08/13/2025 10:30 AM CDT [facility] in [place], [place] [address] [place] [phone] Jessica Rousseau M.B.B.S. [address] [place] [phone] Nelli Parker Pharm.D., R.Ph. [address] [place] [phone] 08/13/2025 11:00 AM CDT Nurse Only [facility] for Transplantation and Clinical Regeneration in [place], [place] [address] [place] [phone] Jessica Rousseau M.B.B.S. [address] [place] [phone] 08/13/2025 11:30 AM CDT Office Visit [facility] for Transplantation and Clinical Regeneration in [place], [place] [address] [place] [phone] Jessica Rousseau M.B.B.S. [address] [place] [phone] 08/13/2025 3:00 PM CDT Clinical Support Department of Palliative Care in [place], [place] [address] [place] [phone] Meghan Osorio M.D. [address] [place] [address] [phone] Mary Garcia M.S.W., L.I.C.S.W. [address] [place] [address] [phone] 08/25/2025 8:00 AM CDT Telemedicine [facility] Transplantation and Clinical Regeneration in [place], [place] [address] [place] [address] [phone] Jessica Rousseau M.B.B.S. [address] [place] [address] [phone] documented as of this encounter Visit Diagnoses Not on filedocumented in this encounter Additional Health Concerns Infection Onset Date Last Indicated Resolved Time Protective Environment 03/02/2023 03/02/2023 Assessment Noted Time PHQ-9 Depression Total Score: 12 025 9:42 AM CDT documented as of this encounter Care Teams Disassembler Relationship Specialty Start Date End Date Renzo Andres M.D. [address] [place] [phone] PCP - General Family Medicine 04/25/23 documented as of this encounter
--- OUTSIDE RECORDS SUMMARY | 2025-08-09 14:36 | XMS_ITS | Encounter Summary ---
Author Organization [facility] Address [address] [place] [address] Care Team Providers Care Fresh Foods Clerk Name Role Phone Renzo Andres M.D. Primary Care Provider [phone] Encounter Details Date Type Department Care Team (Late st Contact Info) Description 07/17/2025 Orders Only Pedro sanchez [facility] for Transplantation and Clinical Regeneration in [place], [place] [address] [place] [phone] Jessica Rousseau M.B.B.S. [address] [place] [phone] Social History Tobacco Use Types Packs/Day Years [...] situation today? I have a [facility] place to live 07/02/2025 Education Answer Date Recorded What is the highest level of school you have completed or the highest degree you have received? Some college, no degree 04/24/2019 Comments No Sex and Gender Information Value Date Recorded Sex Assigned at Female 12/26/2018 8:37 PM INSTRUCTIONAL SUPPORT TECHNICIAN Legal Sex Female 2:43 PM INSTRUCTIONAL SUPPORT TECHNICIAN Gender Identity Female 12/26/2018 8:37 PM INSTRUCTIONAL SUPPORT TECHNICIAN Sexual Orientation Choose not to disclose 2020 3:46 PM CDT documented as of this encounter Plan of Treatment Upcoming Encounters Date Type Department Care Team (Late st Contact Info) Description 08/11/2025 8:00 AM CDT Office Visit Department of Palliative Care in [place], [place] 200 [place] [address] Meghan Osorio M.D. 200 [place] [address] 08/11/2025 9:00 AM CDT Nurse Only Section of Infectious Diseases in [place], [place] [address] [place] [phone] Jessica Rousseau M.B.B.S. [address] [place] [phone] 08/11/2025 1:00 PM CDT Clinical Support Department of Palliative Care in [place], [place] [address] [place] [phone] Uma Aly APRN, C.N.P., M.S.N. [address] [place] [phone] 08/13/2025 10:00 AM CDT Lab Department of Laboratory Medicine and Pathology, [facility] in [place], [place] [address] [place] [phone] Jessica Rousseau M.B.B.S. [address] [place] [phone] 08/13/2025 10:30 AM CDT [facility] in [place], [place] [address] [place] [address] Jessica Rousseau M.B.B.S. [address] [place] [phone] Nelli Parker, Pharm.D., R.Ph. [address] [place] [phone] 08/13/2025 11:00 AM CDT [facility] in [place], [place] [address] [place] [address] Jessica Rousseau M.B.B.S. [address] [place] [phone] 08/13/2025 11:30 AM CDT Office Visit [facility] Transplantation and Clinical Regeneration in [place], [place] [address] [place] [phone] Jessica Rousseau M.B.B.S. [address] [place] [phone] 08/13/2025 3:00 PM CDT Clinical Support Department of Palliative Care in [place], [place] [address] [place] [phone] Meghan Osorio M.D. [address] [place] [phone] Mary Garcia M.S.W., L.I.C.S.W. [address] [place] [phone] 08/25/2025 8:00 AM CDT Telemedicine [facility] Transplantation and Clinical Regeneration in [place], [place] [address] [place] [phone] Jessica Rousseau M.B.B.S. [address] [place] [phone] documented as of this encounter Visit Diagnoses Not on filedocumented in this encounter Additional Health Concerns Infection Onset Date Last Indicated Resolved Time Protective Environment 03/02/2023 03/02/2023 Assessment Noted Time PHQ-9 Depression Total Score: 12 025 9:42 AM CDT documented as of this encounter Care Teams Fresh Foods Clerk Relationship Specialty Start Date End Date Renzo Andres M.D. [address] [place] [phone] PCP - General Family Medicine 04/25/23 documented as of this encounter
--- OUTSIDE RECORDS SUMMARY | 2025-08-09 14:36 | XMS_ITS | Encounter Summary ---
Author Organization [facility] Address [address] [place] [address] Care Team Providers Care Import Coordination And Production Head Name Role Phone Renzo Andres M.D. Primary Care Provider Reason for Visit * Reason Comments Med Refill Encounter Details Date Type Department Care Team (Late st Contact Info) Description 07/19/[address] [facility], [facility], [facility], Ninth Floor [address] [place] [phone] Analia Carter, STRUCTURAL TEST ENGINEER, C.N.P. [address] [place] [phone] Med Refill Social History Tobacco Use Types [...] things needed for daily living? No 07/02/2025 [facility] Utilities Answer Date Recorded In the past 12 months has [employer], gas, oil, or water [employer] threatened to shut off services in your home? No 07/02/2025 Depression Answer Date Recor ded PHQ-9 Total Score (max 27) 12 07/08 Housing Stability Answer Date Recorded What is your living situation today? I have a [facility] place to live 07/02/2025 Education Answer Date Recorded What is the highest level of school you have completed or the highest degree you have received? Some college, no degree 04/24/2019 Comments No Sex and Gender Information Value Date Recorded Sex Assigned at Female 12/26/2018 8:37 PM PROGRAM SUPPORT CLERK Legal Sex Female 2:43 PM PROGRAM SUPPORT CLERK Gender Identity Female 12/26/2018 8:37 PM PROGRAM SUPPORT CLERK Sexual Orientation Choose not to disclose 2020 3:46 PM CDT documented as of this encounter Plan of Treatment Upcoming Encounters Date Type Department Care Team (Late st Contact Info) Description 08/11/2025 8:00 AM CDT Office Visit Department of Palliative Care in [place], [place] [address] [place] [address] Meghan Osorio M.D. 200 [place] [phone] 08/11/2025 9:00 AM CDT Nurse Only Section of Infectious Diseases in [place], [place] [address] [place] [phone] Jessica Rousseau M.B.B.S. [address] [place] [phone] 08/11/2025 1:00 PM CDT Clinical Support Department of Palliative Care in [place], [place] [address] [place] [phone] Uma Aly APRN, C.N.P., M.S.N. [address] [place] [phone] 08/13/2025 10:00 AM CDT Lab Department of Laboratory Medicine and Pathology, [facility] in [place], [place] [address] [place] [phone] Jessica Rousseau M.B.B.S. [address] [place] [phone] 08/13/2025 10:30 AM CDT [facility] in [place], [place] [address] [place] [phone] Jessica Rousseau M.B.B.S. [address] [place] [phone] Nelli Parker, Pharm.D., R.Ph. [address] [place] [phone] 08/13/2025 11:00 AM CDT Nurse Only Pedro sanchez [facility] for Transplantation and Clinical Regeneration in [place], [place] [address] [place] [address] Jessica Rousseau M.B.B.S. [address] [place] [phone] 08/13/2025 11:30 AM CDT Office Visit [facility] Transplantation and Clinical Regeneration in [place], [place] [address] [place] [phone] Jessica Rousseau M.B.B.S. [address] [place] [phone] 08/13/2025 3:00 PM CDT Clinical Support Department of Palliative Care in [place], [place] [address] [place] [phone] Meghan Osorio M.D. [address] [place] [phone] Mary Garcia M.S.Vivi., L.I.C.S.W. [address] [place] [phone] 08/25/2025 8:00 AM CDT Telemedicine [facility] Transplantation and Clinical Regeneration in [place], [place] [address] [place] [phone] Jessica Rousseau M.B.B.S. 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 [address] [place], [place] [address] [phone] PCP - General Family Medicine 04/25/23 documented as of this encounter
--- OUTSIDE RECORDS SUMMARY | 2025-08-09 14:36 | XMS_ITS | Encounter Summary ---
Author Organization [facility] Address [address] [place] [address] Care Team Providers Care Opal Polisher Name Role Phone Renzo Andres M.D. Primary Care Provider Encounter Details Date Type Department Care Team (Late st Contact Info) Description 06/27/2025 Orders Only [facility], [facility], Ninth Floor [address] [place] [address] Carlee Armas APRN, C.N.P., D.N.P., M.S.N. [address] [place] [phone] Abdominal Pain (Primary Dx); Transplant Stem Cell [...] things needed for daily living? No 06/24/[address] [facility] Utilities Answer Date Recorded In the past 12 months has th [employer] electric, gas, oil, or water company threatened [...] Sex Assigned at Female 12/26/2018 8:37 PM WINDOW SHADE RING COVERER Legal Sex Female 2:43 PM WINDOW SHADE RING COVERER Gender Identity Female 12/26/2018 8:37 PM WINDOW SHADE RING COVERER Sexual Orientation Choose not to disclose 2020 3:46 PM CDT documented as of this encounter Plan of Treatment Upcoming Encounters Date Type Department Care Team (Late st Contact Info) Description 08/11/2025 8:00 AM CDT Office Visit Department of Palliative Care in [place], [place] [address] [place] [address] Meghan Osorio M.D. [address] [place] [phone] 08/11/2025 9:00 AM CDT Nurse Only Section of Infectious Diseases in [place], [place] [address] [place] [address] Jessica Rousseau M.B.B.S. [address] [place] [phone] 08/11/2025 1:00 PM CDT Clinical Support Department of Palliative Care in [place], [place] [address] [place] [phone] Uma Aly APRN, JamariNLuigi., M.S.N. [address] [place] [phone] 08/13/2025 10:00 AM CDT Lab Department of Laboratory Medicine and Pathology, [facility], in [place], [place] [address] [place] [phone] Jessica Rousseau M.B.B.S. [address] [place] [phone] 08/13/2025 10:30 AM CDT [facility] in [place], [place] [address] [place] [phone] Jessica Rousseau M.B.B.S. [address] [place] [phone] Nelli Parker, Pharm.D., R.Ph. [address] [place] [phone] 08/13/2025 11:00 AM CDT Nurse [facility] in [place], [place] [address] [place] [address] [place] [phone] Jessica Rousseau M.B.B.S. [address] [place] [address] [phone] 08/13/2025 11:30 AM CDT Office Visit [facility] Transplantation and Clinical Regeneration in [place], [place] [address] [place] [phone] Jessica Rousseau M.B.B.S. [address] [place] [phone] 08/13/2025 3:00 PM CDT Clinical Support Department of Palliative Care in [place], [place] [address] [place] [phone] Meghan Osorio M.D. [address] [place] [phone] Mary Garcia M.S.W., L.I.C.S.W. [address] [place] [phone] 08/25/2025 8:00 AM CDT Telemedicine [facility] Transplantation and Clinical Regeneration in [place], [place] [address] [place] [phone] Jessica Rousseau M.B.B.S. 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 [address] [place] [address] [place] [phone] PCP - General Family Medicine 04/25/23 documented as of this encounter
--- OUTSIDE RECORDS SUMMARY | 2025-08-09 14:36 | XMS_ITS | Encounter Summary ---
Author Organization [facility] Address [address] [place] [address] Care Team Providers Care Framework Developer Name Role Phone Renzo Andres M.D. Primary Care Provider Encounter Details Date Type Department Care Team (Latest Contact Info) Description 07/19/2025 Clinical Communication [facility] in [place], [place] [address] [place] [address] Pedro Scruggs, RKatalinaNKatalina Social History Tobacco Use [...] things needed for daily living? No 07/02/2025 [facility] Utilities Answer Date Recorded [...] Assigned at Female 12/26/2018 8:37 PM CAR DISPATCHER Legal Sex Female 2:43 PM CAR DISPATCHER Gender Identity Female 12/26/2018 8:37 PM CAR DISPATCHER Sexual Orientation Choose not to disclose 2020 [...] Office Visit Department of Palliative Care in [address] [phone] Meghan Osorio M.D. [address] [place] [phone] 08/11/2025 9:00 AM CDT Nurse Only Section of Infectious Diseases in [address] [phone] Jessica Rousseau M.B.B.S. [address] [place] [phone] 08/11/2025 1:00 PM CDT Clinical Support Department of Palliative Care in [address] [phone] Uma Aly APRN, C.N.P., M.S.N. [address] [place] [phone] 08/13/2025 10:00 AM CDT Lab Department of Laboratory Medicine and Pathology, [facility], in [place], [place] [address] [place] [phone] Jessica Rousseau M.B.B.S. [address] [place] [phone] 08/13/2025 10:30 AM CDT Office Visit [facility] for Transplantation and Clinical Regeneration in [place], [place] [address] [place] [phone] Jessica Rousseau M.B.B.S. [address] [place] [phone] Nelli Parker Pharm.D., R.Ph. [address] [place] [phone] 08/13/2025 11:00 AM CDT Nurse Only [facility] Transplantation and Clinical Regeneration in [place], [place] [address] [place] [phone] Jessica Rousseau M.B.B.S. [address] [place] [phone] 08/13/2025 11:30 AM CDT Office Visit [facility] Transplantation and Clinical Regeneration in [place], [place] [address] [place] [phone] Jessica Rousseau M.B.B.S. [address] [place] [phone] 08/13/2025 3:00 PM CDT Clinical Support Department of Palliative Care in [place], [place] [address] [place] [phone] Meghan Osorio M.D. [address] [place] [phone] Mary Garcia M.S.W., L.I.C.S.W. [address] [place] [address] [phone] 08/25/2025 8:00 AM CDT Telemedicine [facility] Transplantation and Clinical Regeneration in [place], [place] [address] [place] [phone] Jessica Rousseau M.B.B.S. [address] [place] [address] documented as of this encounter Visit Diagnoses Not on filedocumented in this encounter Additional Health Concerns Infection Onset Date Last Indicated Resolved Time Protective Environment 03/02/2023 03/02/2023 Assessment Noted Time PHQ-9 Depression Total Score: 12 025 9:42 AM CDT documented as of this encounter Care Teams Framework Developer Relationship Specialty Start Date End Date Renzo Andres M.D. [address] [place] [phone] PCP - General Family Medicine 04/25/23 documented as of this encounter
--- OUTSIDE RECORDS SUMMARY | 2025-08-09 14:36 | XMS_ITS | Encounter Summary ---
Author Organization [facility] Address [address] [place] [address] Care Team Providers Care Anesthesiologist And Critical Care Name Role Phone Renzo Andres M.D. Primary Care Provider Encounter Details Date Type Department Care Team (Latest Contact Info) Description 06/22/2025 Results Follow-Up [facility] for Transplantation and Clinical Regeneration in [place], [place] [address] [place] [phone] Jessica Rousseau M.B.B.S. [address] [place] [phone] BCR/ABL1, p210, mRNA Detection, Reverse Supervisor [employer]-PCR (RT-PCR), Quantitative, Monitoring Chronic Myeloid Leukemia (CML) [...] needed for daily living? No 07/02/2025 [facility] Utilities Answer Date Recorded In the past 12 months has th e electric, gas, oil, or water company threatened to shut off services in your home? No 07/02/2025 Depression Answer Date Recor ded PHQ-9 Total Score (max 27) 12 07/08 Housing Stability Answer Date Recorded What is your living situation today? I have a [facility] place to live 07/02/2025 Education Answer Date Recorded What is the highest level of school you have completed or the highest degree you have received? Some college, no degree 04/24/2019 Comments No Sex and Gender Information Value Date Recorded Sex Assigned at Female 12/26/2018 8:37 PM CORONARY CARE UNIT NURSE Legal Sex Female 2:43 PM CORONARY CARE UNIT NURSE Gender Identity Female 12/26/2018 8:37 PM CORONARY CARE UNIT NURSE Sexual Orientation Choose not to disclose 2020 3:46 PM CDT documented as of this encounter Plan of Treatment Upcoming Encounters Date Type Department Care Team (Late st Contact Info) Description 08/11/2025 8:00 AM CDT Office Visit Department of Palliative Care in [place], [place] 200 [place] [address] Meghan Osorio M.D. [address] [place] [phone] 08/11/2025 9:00 AM CDT Nurse Only Section of Infectious Diseases in [place], [place] [address] [place] [phone] Jessica Rousseau M.B.B.S. [address] [place] [phone] 08/11/2025 1:00 PM CDT Clinical Support Department of Palliative Care in [place], [place] [address] [place] [phone] Uma Aly APRN, C.N.P., M.S.N. [address] [place] [phone] 08/13/2025 10:00 AM CDT Lab Department of Laboratory Medicine and Pathology, [facility] in [place], [place] [address] [place] [phone] Jessica Rousseau M.B.B.S. [address] [place] [phone] 08/13/2025 10:30 AM CDT [facility] in [place], [place] [address] [place] [phone] Jessica Rousseau M.B.B.S. [address] [place] [phone] Nelli Parker, Pharm.D., R.Ph. [address] [place] [address] [phone] 08/13/2025 11:00 AM CDT Nurse Only Pedro [facility]anchez [facility] in [place], [place] [address] [place] [address] Jessica Rousseau M.B.B.S. [address] [place] [address] [phone] 08/13/2025 11:30 AM CDT Office Visit [facility] Transplantation and Clinical Regeneration in [place], [place] [address] [place] [phone] Jessica Rousseau M.B.B.S. [address] [place] [phone] 08/13/2025 3:00 PM CDT Clinical Support Department of Palliative Care in [place], [place] [address] [place] [address] [phone] Meghan Osorio M.D. [address] [place] [phone] Mary Garcia M.S.W., L.I.C.S.W. [address] [place] [phone] 08/25/2025 8:00 AM CDT Telemedicine [facility] Transplantation and Clinical Regeneration in [place], [place] [address] [place] [phone] Jessica Rousseau M.B.B.S. [address] [place] [phone] documented as of this encounter Visit Diagnoses Not on filedocumented in this encounter Additional Health Concerns Infection Onset Date Last Indicated Resolved Time Protective Environment 03/02/2023 03/02/2023 Assessment Noted Time PHQ-9 Depression Total Score: 2 12/10/19 25 2:46 PM CORONARY CARE UNIT NURSE documented as of this encounter Care Teams Anesthesiologist And Critical Care Relationship Specialty Start Date End Date Renzo Andres M.D. [address] [place] [address] [phone] PCP - General Family Medicine 04/25/23 documented as of this encounter
--- OUTSIDE RECORDS SUMMARY | 2025-08-09 14:36 | XMS_ITS | Encounter Summary ---
Author Organization [facility] Address [address] [place] [address] Care Team Providers Care Stock Trader Name Role Phone Renzo Andres M.D. Primary Care Provider Encounter Details Date Type Department Care Team (Latest Contact Info) Description 06/23/2025 Clinical Communication Pedro Nazario [facility] for Transplantation and Clinical Regeneration in [place], [place] [address] [place] [phone] Jessica Rousseau M.B.B.S. [address] [place] [address] Social History Tobacco Use Types Packs/Day Years [...] In the past 12 months has th [employer] electric, gas, oil, or water company threatened to shut off services in your home? No 07/02/2025 Depression Answer Date Recor ded PHQ-9 Total Score (max 27) 12 07/08 Housing Stability Answer Date Recorded What is your living situation today? I have a [facility] place to live 07/02/2025 Education Answer Date Recorded What is the highest level of school you have completed or the highest degree you have received? Some college, no degree 04/24/2019 Comments No Sex and Gender Information Value Date Recorded Sex Assigned at Female 12/26/2018 8:37 PM EVENT SET UP SPECIALIST Legal Sex Female 2:43 PM EVENT SET UP SPECIALIST Gender Identity Female 12/26/2018 8:37 PM EVENT SET UP SPECIALIST Sexual Orientation Choose not to disclose 2020 3:46 PM CDT documented as of this encounter Plan of Treatment Upcoming Encounters Date Type Department Care Team (Late st Contact Info) Description 08/11/2025 8:00 AM CDT Office Visit Department of Palliative Care in [place], [place] 200 [place] [address] Meghan Osorio M.D. 200 [place] [address] 08/11/2025 9:00 AM CDT Nurse Only Section of Infectious Diseases in [place], [place] [address] [place] [phone] Jessica Rousseau M.B.B.S. [address] [place] [phone] 08/11/2025 1:00 PM CDT Clinical Support Department of Palliative Care in [place], [place] [address] [place] [phone] Uma Aly APRN, C.N.P., M.S.N. [address] [place] [phone] 08/13/2025 10:00 AM CDT Lab Department of Laboratory Medicine and Pathology, [facility], in [place], [place] [address] [place] [phone] Jessica Rousseau M.B.B.S. [address] [place] [phone] 08/13/2025 10:30 AM CDT [facility] in [place], [place] [address] [place] [address] Jessica Rousseau M.B.B.S. [address] [place] [phone] Nelli Parker, Pharm.D., R.Ph. [address] [place] [phone] 08/13/2025 11:00 AM CDT Nurse Only [facility] in [place], [place] [address] [place] [address] Jessica Rousseau M.B.B.S. [address] [place] [phone] 08/13/2025 11:30 AM CDT Office Visit [facility] Transplantation and Clinical Regeneration in [place], [place] [address] [place] [address] Jessica Rousseau M.B.B.S. [address] [place] [phone] 08/13/2025 3:00 PM CDT Clinical Support Department of Palliative Care in [place], [place] [address] [place] [phone] Meghan Osorio M.D. [address] [place] [phone] Mary Garcia M.S.W., L.I.C.S.W. [address] [place] [phone] 08/25/2025 8:00 AM CDT Telemedicine [facility] Transplantation and Clinical Regeneration in [place], [place] [address] [place] [phone] Jessica Rousseau M.B.B.S. [address] [place] [phone] documented as of this encounter Visit Diagnoses Not on filedocumented in this encounter Additional Health Concerns Infection Onset Date Last Indicated Resolved Time Protective Environment 03/02/2023 03/02/2023 Assessment Noted Time PHQ-9 Depression Total Score: 2 12/10/19 25 2:46 PM EVENT SET UP SPECIALIST documented as of this encounter Care Teams Stock Trader Relationship Specialty Start Date End Date Renzo Andres M.D. [address] [place] [address] [place] [phone] PCP - General Family Medicine 04/25/23 documented as of this encounter
--- OUTSIDE RECORDS SUMMARY | 2025-08-09 14:36 | XMS_ITS | Encounter Summary ---
Author Organization [facility] Address [address] [place] [address] Care Team Providers Care Gastroenterology Professor Name Role Phone Renzo Andres M.D. Primary Care Provider [phone] Reason for Visit * Reason Onset Date Comments Phone Contact 06/18/2025 Encounter Details Date Type Department Care Team (Latest Contact Info) Description 06/18/2025 Clinical [facility] in [place], [place] [address] [place] [address] Osiris Bass R.N., BMT-CN [address] [place] [address] Phone Contact Social History Tobacco Use Types [...] things needed for daily living? No 07/02/2025 [facility] Utilities Answer Date Recorded In the past 12 months has th e [employer], gas, oil, or water company threatened to shut off services in your home? No 07/02/2025 Depression Answer Date Recor ded PHQ-9 Total Score (max 27) 12 07/08 Housing Stability Answer Date Recorded What is your living situation today? I have a [facility] place to live 07/02/2025 Education Answer Date Recorded What is the highest level of school you have completed or the highest degree you have received? Some college, no degree 04/24/2019 Comments No Sex and Gender Information Value Date Recorded Sex Assigned at Female 12/26/2018 8:37 PM TEACHER MUSIC Legal Sex Female 2:43 PM TEACHER MUSIC Gender Identity Female 12/26/2018 8:37 PM TEACHER MUSIC Sexual Orientation Choose not to disclose 2020 3:46 PM CDT documented as of this encounter Plan of Treatment Upcoming Encounters Date Type Department Care Team (Late st Contact Info) Description 08/11/2025 8:00 AM CDT Office Visit Department of Palliative Care in [place], [place] 200 [place] [address] Meghan Osorio M.D. 200 [place] [address] 08/11/2025 9:00 AM CDT Nurse Only Section of Infectious Diseases in [place], [place] [address] [place] [phone] Jessica Rousseau M.B.B.S. [address] [place] [phone] 08/11/2025 1:00 PM CDT Clinical Support Department of Palliative Care in [place], [place] [address] [place] [phone] Uma Aly APRN, C.N.P., M.S.N. [address] [place] [phone] 08/13/2025 10:00 AM CDT Lab Department of Laboratory Medicine and Pathology, [facility], in [place], [place] [address] [place] [phone] Jessica Rousseau M.B.B.S. [address] [place] [phone] 08/13/2025 10:30 AM CDT Office Visit Pedro Nazario [facility] for Transplantation and Clinical Regeneration in [place], [place] [address] [place] [phone] Jessica Rousseau M.B.B.S. [address] [place] [phone] Nelli Parker, Pharm.D., R.Ph. [address] [place] [phone] 08/13/2025 11:00 AM CDT [facility] for Transplantation and Clinical Regeneration in [place], [place] [address] [place] [phone] Jessica Rousseau M.B.B.S. [address] [place] [phone] 08/13/2025 11:30 AM CDT Office Visit [facility] Transplantation and Clinical Regeneration in [place], [place] [address] [place] [address] Jessica Rousseau M.B.B.S. [address] [place] [phone] 08/13/2025 3:00 PM CDT Clinical Support Department of Palliative Care in [place], [place] [address] [place] [phone] Meghan Osorio M.D. [address] [place] [phone] Mary Garcia M.S.W., L.I.C.S.W. [address] [place] [phone] 08/25/2025 8:00 AM CDT Telemedicine [facility] Transplantation and Clinical Regeneration in [place], [place] [address] [place] [phone] Jessica Rousseau M.B.B.S. [address] [place] [phone] documented as of this encounter Visit Diagnoses Not on filedocumented in this encounter Additional Health Concerns Infection Onset Date Last Indicated Resolved Time Protective Environment 03/02/2023 03/02/2023 Assessment Noted Time PHQ-9 Depression Total Score: 2 12/10/19 25 2:46 PM TEACHER MUSIC documented as of this encounter Care Teams Gastroenterology Professor Relationship Specialty Start Date End Date Renzo Andres M.D. [address] [place] [address] [place] [phone] PCP - General Family Medicine 04/25/23 documented as of this encounter
--- OUTSIDE RECORDS SUMMARY | 2025-08-09 14:36 | XMS_ITS | Encounter Summary ---
Author Organization [facility] Address [address] [place] [address] Care Team Providers Care Change Management Coordinator Name Role Phone Renzo Andres M.D. Primary Care Provider Encounter Details Date Type Department Care Team (Late st Contact Info) Description 06/27/[address] [facility], [facility], Ninth Floor [address] [place] [address] Analia Carter, OIL WELL DIRECTIONAL SURVEYOR, C.N.P. [address] [place] [phone] Transplant Bone Marrow Allogeneic (HCC); Leukemia Myeloid [...] has e electric, gas, oil, or water [employer] threatened to shut off services in your home? No 07/02/2025 Depression Answer Date Recor ded PHQ-9 Total Score (max 27) 12 07/08 Housing Stability Answer Date Recorded What is your living situation today? I have a [facility] place to live 07/02/2025 Education Answer Date Recorded What is the highest level of school you have completed or the highest degree you have received? Some college, no degree 04/24/2019 Comments No Sex and Gender Information Value Date Recorded Sex Assigned at Female 12/26/2018 8:37 PM PHLEBOTOMY TECH Legal Sex Female 2:43 PM PHLEBOTOMY TECH Gender Identity Female 12/26/2018 8:37 PM PHLEBOTOMY TECH Sexual Orientation Choose not to disclose 2020 3:46 PM CDT documented as of this encounter Plan of Treatment Upcoming Encounters Date Type Department Care Team (Late st Contact Info) Description 08/11/2025 8:00 AM CDT Office Visit Department of Palliative Care in [place], [place] [address] [place] [address] Meghan Osorio M.D. [address] [place] [address] 08/11/2025 9:00 AM CDT Nurse Only Section of Infectious Diseases in [place], [place] [address] [place] [address] Jessica Rousseau M.B.B.S. [address] [place] [phone] 08/11/2025 1:00 PM CDT Clinical Support Department of Palliative Care in [place], [place] [address] [place] [phone] Uma Aly APRN, C.N.P., M.S.N. [address] [place] [phone] 08/13/2025 10:00 AM CDT Lab Department of Laboratory Medicine and Pathology, [facility] in [place], [place] [address] [place] [phone] Jessica Rousseau M.B.B.S. [address] [place] [phone] 08/13/2025 10:30 AM CDT [facility] in [place], [place] [address] [place] [phone] Jessica Rousseau M.B.B.S. [address] [place] [phone] Nelli Parker, Pharm.D., R.Ph. [address] [place] [phone] 08/13/2025 11:00 AM CDT Nurse Only [facility] in [place], [place] [address] [place] [address] Jessica Rousseau M.B.B.S. [address] [place] [phone] 08/13/2025 11:30 AM CDT Office Visit [facility] Transplantation and Clinical Regeneration in [place], [place] [address] [place] [phone] Jessica Rousseau M.B.B.S. [address] [place] [phone] 08/13/2025 3:00 PM CDT Clinical Support Department of Palliative Care in [place], [place] [address] [place] [phone] Meghan Osorio M.D. [address] [place] [phone] Mary Garcia M.S.W., L.I.C.S.W. [address] [place] [phone] 08/25/2025 8:00 AM CDT Telemedicine [facility] Transplantation and Clinical Regeneration in [place], [place] [address] [place] [phone] Jessica Rousseau M.B.B.S. 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 [address] [place] [address] [place] [phone] PCP - General Family Medicine 04/25/23 documented as of this encounter
--- OUTSIDE RECORDS SUMMARY | 2025-08-09 14:36 | XMS_ITS | Encounter Summary ---
Author Organization [facility] Address [address] [place] [address] Care Team Providers Care Director Industrial Name Role Phone Renzo Andres M.D. Primary Care Provider [phone] Reason for Referral * MRI/CAT/PET Scan (Routine) - Closed Specialty Diagnoses / Procedures Referred By Contheidy t Referred To Contact Radiology Diagnoses Transplant Stem Cell (HCC) Transplant Bone Marrow Allogeneic (HCC) Procedures CT Abdomen Pelvis Enterography with IV Contrast CT Abdomen Pelvis Angiogram Enterography with IV Contrast Carlee Armas APRN, C.N.P., D.N.P., M.S.N. [address] [place] [address] Phone: tel: fax: [facility] Referral ID Status Reason Start Date Expiration Date Visits Re quested Visits Authorized [id number] Closed 06/27/2025 09/27/2026 1 1 CDT Encounter Details Date Type Department Care Team (Late st Contact Info) Description 06/27/2025 Orders Only [facility], [facility], Ninth Floor [address] [place] [address] Carlee Armas APRN, C.N.P., D.N.P., M.S.N. [address] [place] [address] Abdominal Pain (Primary Dx); Transplant Stem Cell [...] Sex Assigned at Female 12/26/2018 8:37 PM SHEEP HERDER Legal Sex Female 2:43 PM SHEEP HERDER Gender Identity Female 12/26/2018 8:37 PM SHEEP HERDER Sexual Orientation Choose not to disclose 2020 3:46 PM CDT documented as of this encounter Plan of Treatment Upcoming Encounters Date Type Department Care Team (Late st Contact Info) Description 08/11/2025 8:00 AM CDT Office Visit Department of Palliative Care in [place], [place] [address] [place] [phone] Meghan Osorio M.D. [address] [place] [phone] 08/11/2025 9:00 AM CDT Nurse Only Section of Infectious Diseases in [place], [place] [address] [place] [phone] Jessica Rousseau M.B.B.S. [address] [place] [phone] 08/11/2025 1:00 PM CDT Clinical Support Department of Palliative Care in [place], [place] [address] [place] [phone] Uma Aly APRN, C.N.P., M.S.N. [address] [place] [phone] 08/13/2025 10:00 AM CDT Lab Department of Laboratory Medicine and Pathology, [facility], in [place], [place] [address] [place] [phone] Jessica Rousseau M.B.B.S. [address] [place] [phone] 08/13/2025 10:30 AM CDT Office Visit [facility] for Transplantation and Clinical Regeneration in [place], [place] [address] [place] [address] Jessica Rousseau M.B.B.S. [address] [place] [phone] Nelli Parker PharmElaine., R.Ph. [address] [place] [phone] 08/13/2025 11:00 AM CDT Nurse Only [facility] Transplantation and Clinical Regeneration in [place], [place] [address] [place] [address] Jessica Rousseau M.B.B.S. [address] [place] [phone] 08/13/2025 11:30 AM CDT Office Visit [facility] Transplantation and Clinical Regeneration in [place], [place] [address] [place] [phone] Jessica Rousseau M.B.B.S. [address] [place] [phone] 08/13/2025 3:00 PM CDT Clinical Support Department of Palliative Care in [place], [place] [address] [place] [phone] Meghan Osorio M.D. [address] [place] [phone] Mary Garcia M.S.W., L.I.C.S.W. [address] [place] [phone] 08/25/2025 8:00 AM CDT Telemedicine [facility] for Transplantation and Clinical Regeneration in [place], [place] [address] [place] [address] Jessica Rousseau M.B.B.S. [address] [place] [phone] documented as of this encounter Results * [...] prior bone marrow biopsies. Procedure Note Tomas Matrinez M.D. - 06/30/2025 EXAM: CT ABDOMEN PELVIS [...] without recurrence of the marked splenomegaly seen [id number]. No suspicious lymphadenopathy within the abdomen or [...] Total Score: 2 12/10/19 25 2:46 PM SHEEP HERDER documented as of this encounter Care Teams Director Industrial Relationship Specialty Start Date End Date Renzo Andres M.D. [address] [place] [address] [place] [phone] PCP - General Family Medicine 04/25/23 documented as of this encounter
--- OUTSIDE RECORDS SUMMARY | 2025-08-09 14:37 | XMS_ITS | Encounter Summary ---
Author Organization [facility] Address [address] [place] [address] Care Team Providers Care Bridge Ironworker Helper Name Role Phone Renzo Andres M.D. Primary Care Provider Reason for Visit * Reason Onset Date Comments Phone Contact 07/01/2025 Abdominal Pain Encounter Details Date Type Department Care Team (Latest Contact Info) Description 07/01/2025 Clinical Communication [facility] in [place], [place] [address] [place] [address] Jessica Rousseau M.B.B.S. [address] [place] [phone] Phone Contact (Abdominal Pain ) Social History [...] things needed for daily living? No 07/02/2025 [facility] Utilities Answer Date Recorded In the past 12 months has e electric, gas, oil, or water [employer] threatened to shut off services in your [...] Sex Assigned at Female 12/26/2018 8:37 PM CLOTH PAINTER Legal Sex Female 2:43 PM CLOTH PAINTER Gender Identity Female 12/26/2018 8:37 PM CLOTH PAINTER Sexual Orientation Choose not to disclose 2020 3:46 PM CDT documented as of this encounter Miscellaneous Notes * Addendum Note - Sal Mercer R.N., BMT-CN - 07/02/2025 3:41 PM CDT Addended by: SAL MERCER on: 07/02/2025 03:41 PM Modules accepted: Orders * Telephone Encounter - Sal Mercer R.N., [facility] - 07/02/2025 2:56 PM CDT Patient [...] * Telephone Encounter - Sal Mercer R.N., [facility] - 07/02/2025 11:54 AM CDT I [...] Office Visit Department of Palliative Care in [place], [place] [address] [place] [phone] Meghan Osorio M.D. [address] [place] [phone] 08/11/2025 9:00 AM CDT Nurse Only Section of Infectious Diseases in [place], [place] [address] [place] [phone] Jessica Rousseau M.B.B.S. [address] [place] [phone] 08/11/2025 1:00 PM CDT Clinical Support Department of Palliative Care in [place], [place] [address] [place] [phone] Uma Aly APRN, C.N.P., M.S.N. [address] [place] [phone] 08/13/2025 10:00 AM CDT Lab Department of Laboratory Medicine and Pathology, [facility], in [place], [place] [address] [place] [phone] Jessica Rousseau M.B.B.S. [address] [place] [phone] 08/13/2025 10:30 AM CDT Office Visit Pedro Nazario [facility] for Transplantation and Clinical Regeneration in [place], [place] [address] [place] [phone] Jessica Rousseau M.B.B.S. [address] [place] [phone] Nelli Parker, Pharm.D., R.Ph. [address] [place] [phone] 08/13/2025 11:00 AM CDT Nurse Only Pedro Lanza laura [facility] Transplantation and Clinical Regeneration in [place], [place] [address] [place] [address] Jessica Rousseau M.B.B.S. [address] [place] [phone] 08/13/2025 11:30 AM CDT Office Visit Pedro Myla laura [facility] Transplantation and Clinical Regeneration in [place], [place] [address] [place] [address] Jessica Rousseau M.B.B.S. [address] [place] [phone] 08/13/2025 3:00 PM CDT Clinical Support Department of Palliative Care in [place], [place] [address] [place] [phone] Meghan Osorio M.D. [address] [place] [phone] Mary Garcia M.SGómez, L.I.C.S.W. [address] [place] [phone] 08/25/2025 8:00 AM CDT Telemedicine [facility] Transplantation and Clinical Regeneration in [place], [place] [address] [place] [phone] Jessica Rousseau M.B.B.S. 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 [address] [place] [phone] PCP - General Family Medicine 04/25/23 documented as of this encounter
--- OUTSIDE RECORDS SUMMARY | 2025-08-09 14:37 | XMS_ITS | Encounter Summary ---
Author Organization [facility] Address [address] [place] [address] Care Team Providers Care Unix Architect Name Role Phone Renzo Andres M.D. Primary Care Provider [phone] Reason for Referral * Specialty Diagnoses / Procedures Referred By Estefania acosta Referred To Contact Diagnoses Transplant Bone Marrow Allogeneic (HCC) RST [facility] [address] [place] [address] Phone: tel: [facility] Referral ID Status Reason Start Date Expiration Date Visits Re quested Visits Authorized Encounter Details Date Type Department Care Team ([facility] st Contact Info) Description 06/30/2025 Orders Only [facility], [facility], Ninth Floor [address] [place] [phone] Jimmy Rodriguez M.D. [address] [place] [phone] Transplant Bone Marrow Allogeneic (HCC) [...] for daily living? No 07/02/2025 [facility] Utilities Answer Date Recorded In the past 12 months has [facility] electric, gas, oil, or water company threatened to shut off services in your home? No 07/02/2025 Depression Answer Date Recor ded PHQ-9 Total Score (max 27) 12 07/08 Housing Stability Answer Date Recorded What is your living situation today? I have a [facility] place to live 07/02/2025 Education Answer Date Recorded What is the highest level of school you have completed or the highest degree you have received? Some college, no degree 04/24/2019 Comments No Sex and Gender Information Value Date Recorded Sex Assigned at Female 12/26/2018 8:37 PM CROWN WHEEL ASSEMBLER Legal Sex Female 2:43 PM CROWN WHEEL ASSEMBLER Gender Identity Female 12/26/2018 8:37 PM CROWN WHEEL ASSEMBLER Sexual Orientation Choose not to disclose 2020 3:46 PM CDT documented as of this encounter Plan of Treatment Upcoming Encounters Date Type Department Care Team (Late st Contact Info) Description 08/11/2025 8:00 AM CDT Office Visit Department of Palliative Care in [place], [place] [address] [place] [phone] Meghan Osorio M.D. [address] [place] [phone] 08/11/2025 9:00 AM CDT Nurse Only Section of Infectious Diseases in [place], [place] [address] [place] [phone] Jessica Rousseau M.B.B.S. [address] [place] [phone] 08/11/2025 1:00 PM CDT Clinical Support Department of Palliative Care in [place], [place] [address] [place] [phone] Uma Aly APRN, C.N.P., M.S.N. [address] [place] [phone] 08/13/2025 10:00 AM CDT Lab Department of Laboratory Medicine and Pathology, [facility], in [place], [place] [address] [place] [phone] Jessica Rousseau M.B.B.S. [address] [place] [phone] 08/13/2025 10:30 AM CDT [facility] in [place], [place] [address] [place] [phone] Jessica Rousseau M.B.B.S. [address] [place] [phone] Parker, Nelli Cunningham Pharm.D., R.Ph. [address] [place] [phone] 08/13/2025 11:00 AM CDT Nurse Only [facility] Transplantation and Clinical Regeneration in [place], [place] [address] [place] [phone] Jessica Rousseau M.B.B.S. [address] [place] [phone] 08/13/2025 11:30 AM CDT Office Visit [facility] Transplantation and Clinical Regeneration in [place], [place] [address] [place] [phone] Jessica Rousseau M.B.B.S. [address] [place] [phone] 08/13/2025 3:00 PM CDT Clinical Support Department of Palliative Care in [place], [place] [address] [place] [phone] Meghan Osorio M.D. [address] [place] [phone] Mary Garcia M.S.W., L.I.C.S.W. [address] [place] [phone] 08/25/2025 8:00 AM CDT Telemedicine [facility] Transplantation and Clinical Regeneration in [address] [phone] Jessica Rousseau M.B.B.S. [address] [place] [phone] Scheduled Referrals Name Type Priority Associated Diagnoses [...] Total Score: 2 12/10/19 25 2:46 PM CROWN WHEEL ASSEMBLER documented as of this encounter Care Teams Unix Architect Relationship Specialty Start Date End Date Renzo Andres M.D. [address] [place] [address] [place] [phone] PCP - General Family Medicine 04/25/23 documented as of this encounter
--- OUTSIDE RECORDS SUMMARY | 2025-08-09 14:37 | XMS_ITS | Encounter Summary ---
Author Organization [facility] Address [address] [place] [address] Care Team Providers Care Therapeutic Specialist Name Role Phone Renzo Andres M.D. Primary Care Provider [phone] Reason for Referral * Outpatient (Routine) - Authorized Specialty Diagnoses / Procedures Referred By Contheidy t Referred To Contact Palliative Medicine Diagnoses Leukemia Myeloid Chronic BCR/ABL Positive Not Having Achieved Remission (HCC) Anxiety Generalized Disorder Uma Aly APRN, C.N.PKatalina, M.S.N. [address] [place] [phone] Phone: tel: fax: [facility] Referral ID Status Reason Start Date Expiration Date V isits Requested Visits Authorized [id number] Authorized 06/30/2025 12/30/2026 1 1 Scheduling Instructions In person, close to other palliative provider visit. Encounter Details Date Type Department Care Team (Late st Contact Info) Description 06/30/2025 Clinical Communication Department of Palliative Care in [place], [place] [address] [place] [phone] Uma Aly APRN, C.N.P., M.S.N. 200 [place] [address] Social History Tobacco Use Types Packs/Day Years [...] needed for daily living? No 06/24/2025 [facility] Utilities Answer Date Recorded In the past 12 months has [facility] electric, gas, oil, or water company threatened to shut off services in your home? No 06/24/2025 Depression Answer Date Recor ded PHQ-9 Total Score (max 27) 2 12/10 Housing Stability Answer Date Recorded What is your living situation today? I have a [facility] place to live 06/24/2025 Education Answer Date Recorded What is the highest level of school you have completed or the highest degree you have received? Some college, no degree 04/24/2019 Comments No Sex and Gender Information Value Date Recorded Sex Assigned at Female 12/26/2018 8:37 PM LINER ROLL CHANGER Legal Sex Female 2:43 PM LINER ROLL CHANGER Gender Identity Female 12/26/2018 8:37 PM LINER ROLL CHANGER Sexual Orientation Choose not to disclose 2020 3:46 PM CDT documented as of this encounter Plan of Treatment Upcoming Encounters Date Type Department Care Team (Late st Contact Info) Description 08/11/2025 8:00 AM CDT Office Visit Department of Palliative Care in [place], [place] [address] [place] [phone] Meghan Osorio M.D. [address] [place] [address] [phone] 08/11/2025 9:00 AM CDT Nurse Only Section of Infectious Diseases in [address] [phone] Jessica Rousseau M.B.B.S. [address] [place] [address] [phone] 08/11/2025 1:00 PM CDT Clinical Support Department of Palliative Care in [place], [place] [address] [place] [phone] Uma Aly APRN, C.N.P., M.S.N. [address] [place] [phone] 08/13/2025 10:00 AM CDT Lab Department of Laboratory Medicine and Pathology, [facility], in [place], [place] [address] [place] [phone] Jessica Rousseau M.B.B.S. [address] [place] [address] [phone] 08/13/2025 10:30 AM CDT Office Visit Pedro [facility] for Transplantation and Clinical Regeneration in [place], [place] [address] [place] [phone] Jessica Rousseau M.B.B.S. [address] [place] [phone] Nelli Parker Pharm.D., R.Ph. [address] [place] [address] [phone] 08/13/2025 11:00 AM CDT Nurse Only [facility] Transplantation and Clinical Regeneration in [place], [place] [address] [place] [address] [phone] Jessica Rousseau M.B.B.S. [address] [place] [address] [phone] 08/13/2025 11:30 AM CDT Office Visit [facility] Transplantation and Clinical Regeneration in [place], [place] [address] [place] [address] [phone] Jessica Rousseau M.B.B.S. [address] [place] [phone] 08/13/2025 3:00 PM CDT Clinical Support Department of Palliative Care in [place], [place] [address] [place] [address] [phone] Meghan Osorio M.D. [address] [place] [address] [phone] Mary Garcia M.S.W., L.I.C.S.W. [address] [place] [address] [phone] 08/25/2025 8:00 AM CDT Telemedicine [facility] Transplantation and Clinical Regeneration in [place], [place] [address] [place] [address] [phone] Jessica Rousseau M.B.B.S. [address] [place] [address] Scheduled Referrals Name Type Priority Associated Diagnoses [...] Total Score: 2 12/10/19 25 2:46 PM LINER ROLL CHANGER documented as of this encounter Care Teams Therapeutic Specialist Relationship Specialty Start Date End Date Renzo Andres M.D. [address] [place] [phone] PCP - General Family Medicine 04/25/23 documented as of this encounter
--- OUTSIDE RECORDS SUMMARY | 2025-08-09 14:37 | XMS_ITS | Encounter Summary ---
Author Organization [facility] Address [address] [place] [address] Care Team Providers Care Diet Supervisor Name Role Phone Renzo Andres M.D. Primary Care Provider Encounter Details Date Type Department Care Team (Late st Contact Info) Description 06/30/2025 Orders Only Pedro Nazario [facility] for Transplantation and Clinical Regeneration in [place], [place] [address] [place] [phone] Jessica Rousseau M.B.B.S. [address] [place] [phone] Social History Tobacco Use Types Packs/Day Years [...] for daily living? No 07/02/2025 [facility] Utilities Answer Date Recorded In the past 12 months has th [employer] electric, gas, oil, or water company threatened [...] Sex Assigned at Female 12/26/2018 8:37 PM FOIL STAMP OPERATOR Legal Sex Female 2:43 PM FOIL STAMP OPERATOR Gender Identity Female 12/26/2018 8:37 PM FOIL STAMP OPERATOR Sexual Orientation Choose not to disclose 2020 3:46 PM CDT documented as of this encounter Plan of Treatment Upcoming Encounters Date Type Department Care Team (Late st Contact Info) Description 08/11/2025 8:00 AM CDT Office Visit Department of Palliative Care in [place], [place] 200 [place] [address] Meghan Osorio M.D. 200 [place] [phone] 08/11/2025 9:00 AM CDT Nurse Only Section of Infectious Diseases in [place], [place] [address] [place] [phone] Jessica Rousseau M.B.B.S. [address] [place] [phone] 08/11/2025 1:00 PM CDT Clinical Support Department of Palliative Care in [place], [place] [address] [place] [phone] Uma Aly APRN, C.N.P., M.S.N. [address] [place] [address] [phone] 08/13/2025 10:00 AM CDT Lab Department of Laboratory Medicine and Pathology, [facility], in [place], [place] [address] [place] [phone] Jessica Rousseau M.B.B.S. [address] [place] [phone] 08/13/2025 10:30 AM CDT [facility] in [place], [place] [address] [place] [address] Jessica Rousseau M.B.B.S. [address] [place] [phone] Nelli Parker, Pharm.D., R.Ph. [address] [place] [address] [phone] 08/13/2025 11:00 AM CDT Nurse [facility] in [place], [place] [address] [place] [phone] Jessica Rousseau M.B.B.S. [address] [place] [address] [phone] 08/13/2025 11:30 AM CDT Office Visit [facility] Transplantation and Clinical Regeneration in [place], [place] [address] [place] [address] Jessica Rousseau M.B.B.S. [address] [place] [phone] 08/13/2025 3:00 PM CDT Clinical Support Department of Palliative Care in [place], [place] [address] [place] [phone] Meghan Osorio M.D. [address] [place] [phone] Mary Garcia M.S.W., L.I.C.S.W. [address] [place] [phone] 08/25/2025 8:00 AM CDT Telemedicine [facility] Transplantation and Clinical Regeneration in [place], [place] [address] [place] [phone] Jessica Rousseau M.B.B.S. [address] [place] [phone] documented as of this encounter Visit Diagnoses Not on filedocumented in this encounter Additional Health Concerns Infection Onset Date Last Indicated Resolved Time Protective Environment 03/02/2023 03/02/2023 Assessment Noted Time PHQ-9 Depression Total Score: 2 12/10/19 25 2:46 PM FOIL STAMP OPERATOR documented as of this encounter Care Teams Diet Supervisor Relationship Specialty Start Date End Date Renzo Andres M.D. [address] [place] [address] [place] [phone] PCP - General Family Medicine 04/25/23 documented as of this encounter
--- OUTSIDE RECORDS SUMMARY | 2025-08-09 14:37 | XMS_ITS | Encounter Summary ---
Author Organization [facility] Address [address] [place] [address] Care Team Providers Care Breaker Up Name Role Phone Renzo Andres M.D. Primary Care Provider [phone] Reason for Referral * Specialty Diagnoses / Procedures Referred By Estefania acosta Referred To Contact Diagnoses Transplant Bone Marrow Allogeneic (HCC) RST [facility] [address] [place] [address] Phone: tel: [facility] Referral ID Status Reason Start Date Expiration Date Visits Re quested Visits Authorized Encounter Details Date Type Department Care Team (Late st Contact Info) Description 06/30/2025 Orders Only [facility], [facility], Ninth Floor [address] [place] [address] Varghese Fields, R.N. Transplant Bone [...] needed for daily living? No 06/24/2025 [facility] Utilities Answer Date [...] Sex Assigned at Female 12/26/2018 8:37 PM NUCLEAR MEDICINE TECH Legal Sex Female 2:43 PM NUCLEAR MEDICINE TECH Gender Identity Female 12/26/2018 8:37 PM NUCLEAR MEDICINE TECH Sexual Orientation Choose not to disclose 2020 3:46 PM CDT documented as of this encounter Plan of Treatment Upcoming Encounters Date Type Department Care Team (Late st Contact Info) Description 08/11/2025 8:00 AM CDT Office Visit Department of Palliative Care in [place], [place] [address] [place] [phone] Meghan Osorio M.D. [address] [place] [phone] 08/11/2025 9:00 AM CDT Nurse Only Section of Infectious Diseases in [place], [place] [address] [place] [phone] Jessica Rousseau M.B.B.S. [address] [place] [phone] 08/11/2025 1:00 PM CDT Clinical Support Department of Palliative Care in [place], [place] [address] [place] [phone] Uma Aly APRN, C.N.P., M.S.N. [address] [place] [address] [phone] 08/13/2025 10:00 AM CDT Lab Department of Laboratory Medicine and Pathology, [facility], in [place], [place] [address] [place] [phone] Jessica Rousseau M.B.B.S. [address] [place] [phone] 08/13/2025 10:30 AM CDT Office Visit Pedro Nazario [facility] for Transplantation and Clinical Regeneration in [place], [place] [address] [place] [phone] Jessica Rousseau M.B.B.S. [address] [place] [phone] Nelli Parker, Pharm.D., R.Ph. [address] [place] [phone] 08/13/2025 11:00 AM CDT Nurse Only [facility] in [place], [place] [address] [place] [phone] Jessica Rousseau M.B.B.S. [address] [place] [phone] 08/13/2025 11:30 AM CDT Office Visit Pedro Myla laura [facility] Transplantation and Clinical Regeneration in [place], [place] [address] [place] [phone] Jessica Rousseau M.B.B.S. [address] [place] [phone] 08/13/2025 3:00 PM CDT Clinical Support Department of Palliative Care in [place], [place] [address] [place] [phone] Meghan Osorio M.D. [address] [place] [phone] Mary Garcia M.SLavern., L.I.C.S.W. [address] [place] [phone] 08/25/2025 8:00 AM CDT Telemedicine [facility] Transplantation and Clinical Regeneration in [place], [place] [address] [place] [phone] Jessica Rousseau M.B.B.S. [address] [place] [phone] Scheduled Referrals Name Type Priority Associated Diagnoses [...] Total Score: 2 12/10/19 25 2:46 PM NUCLEAR MEDICINE TECH documented as of this encounter Care Teams Breaker Up Relationship Specialty Start Date End Date Renzo Andres M.D. [address] [place] [phone] PCP - General Family Medicine 04/25/23 documented as of this encounter
--- OUTSIDE RECORDS SUMMARY | 2025-08-09 14:37 | XMS_ITS | Encounter Summary ---
Author Organization [facility] Address [address] [place] [address] Care Team Providers Care Field Health Officer Name Role Phone Renzo Andres M.D. Primary Care Provider Encounter Details Date Type Department Care Team (Late st Contact Info) Description 06/30/2025 Orders Only Pedro Nazario [facility] for Transplantation and Clinical Regeneration in [place], [place] [address] [place] [phone] Jessica Rousseau M.B.B.S. [address] [place] [phone] Transplant Bone Marrow Allogeneic (HCC) (Primary Dx) [...] needed for daily living? No 07/02/2025 [facility] Utilities Answer Date Recorded In the past 12 months has e [employer], gas, oil, or water company threatened to shut off services in your home? No 07/02/2025 Depression Answer Date Recor ded PHQ-9 Total Score (max 27) 12 07/08 Housing Stability Answer Date Recorded What is your living situation today? I have a [facility] place to live 07/02/2025 Education Answer Date Recorded What is the highest level of school you have completed or the highest degree you have received? Some college, no degree 04/24/2019 Comments No Sex and Gender Information Value Date Recorded Sex Assigned at Female 12/26/2018 8:37 PM PARAMEDIC RN Legal Sex Female 2:43 PM PARAMEDIC RN Gender Identity Female 12/26/2018 8:37 PM PARAMEDIC RN Sexual Orientation Choose not to disclose 2020 3:46 PM CDT documented as of this encounter Plan of Treatment Upcoming Encounters Date Type Department Care Team (Late st Contact Info) Description 08/11/2025 8:00 AM CDT Office Visit Department of Palliative Care in [place], [place] 200 [place] [address] Meghan Osorio M.D. [address] [place] [phone] 08/11/2025 9:00 AM CDT Nurse Only Section of Infectious Diseases in [place], [place] [address] [place] [phone] Jessica Rousseau M.B.B.S. [address] [place] [phone] 08/11/2025 1:00 PM CDT Clinical Support Department of Palliative Care in [place], [place] [address] [place] [phone] Uma Aly APRN, C.N.P., M.S.N. [address] [place] [address] [phone] 08/13/2025 10:00 AM CDT Lab Department of Laboratory Medicine and Pathology, [facility], in [place], [place] [address] [place] [phone] Jessica Rousseau M.B.B.S. [address] [place] [phone] 08/13/2025 10:30 AM CDT Office Visit Pedro sanchez [facility] for Transplantation and Clinical Regeneration in [place], [place] [address] [place] [phone] Jessica Rousseau M.B.B.S. [address] [place] [phone] Nelli Parker, Pharm.D., R.Ph. [address] [place] [address] [phone] 08/13/2025 11:00 AM CDT Nurse Only Pedro Aravind sanchez [facility] for Transplantation and Clinical Regeneration in [place], [place] [address] [place] [phone] Jessica Rousseau M.B.B.S. [address] [place] [phone] 08/13/2025 11:30 AM CDT Office Visit [facility] Transplantation and Clinical Regeneration in [place], [place] [address] [place] [phone] Jessica Rousseau M.B.B.S. [address] [place] [phone] 08/13/2025 3:00 PM CDT Clinical Support Department of Palliative Care in [place], [place] [address] [place] [phone] Meghan Osoiro M.D. [address] [place] [phone] Mary Garcia M.SLavern., L.I.C.S.W. [address] [place] [address] [phone] 08/25/2025 8:00 AM CDT Telemedicine [facility] Transplantation and Clinical Regeneration in [place], [place] [address] [place] [address] [phone] Jessica Rousseau M.B.B.S. [address] [place] [phone] documented as of this encounter Results * Amylase, Total (06/30/2025 1:12 PM CDT) Amylase, Total, S 50 28 - 100 U/L 06/30/2025 2:24 PM CDT DTL Blood (Blood, Venous) 06/30/2025 1:12 PM CDT 06/30/2025 1:19 PM CDT Jessica DowlingBKatalinaS. LAB BLOOD ADD-ON Final Res ult Performing Organization Address City/[facility] Co de Phone Number [facility] [address] [place] [address], [facility] 200 [place] [address] * Lipase (06/30/2025 1:12 PM CDT) Lipase, S 18 13 - 60 U/L 06/30/2025 2: 24 PM CDT DTL Blood (Blood, Venous) 06/30/2025 1:12 PM CDT 06/30/2025 1:19 PM CDT Jessica Barnes LAB BLOOD ADD-ON Final Res ult Performing Organization Address City/[facility] Co de Phone Number [facility] 200 [place] [address], [facility] [address] [address] documented in this encounter Visit Diagnoses Diagnosis Transplant Bone Marrow Allogeneic (HCC)- Primary documented in this encounter Additional Health Concerns Infection Onset Date Last Indicated Resolved Time Protective Environment 03/02/2023 03/02/2023 Assessment Noted Time PHQ-9 Depression Total Score: 2 12/10/19 25 2:46 PM PARAMEDIC RN documented as of this encounter Care Teams Field Health Officer Relationship Specialty Start Date End Date Renzo Andres M.D. [address] [place] [phone] PCP - General Family Medicine 04/25/23 documented as of this encounter
--- OUTSIDE RECORDS SUMMARY | 2025-08-09 14:37 | XMS_ITS | Encounter Summary ---
Author Organization [facility] Address [address] [place] [address] Care Team Providers Care Claims Correspondence Clerk Name Role Phone Renzo Andres M.D. Primary Care Provider Encounter Details Date Type Department Care Team (Late st Contact Info) Description 07/01/2025 Orders Only Department of Cardiovascular Medicine in [place], [place] [address] [place] [phone] Leighton Andres M.D. [address] [place] [phone] Social History Tobacco Use Types Packs/Day Years [...] In the past 12 months has th [employer] electric, gas, oil, or water company threatened to shut off services in your home? No 07/02/2025 Depression Answer Date Recor ded PHQ-9 Total Score (max 27) 2 12/10 Housing Stability Answer Date Recorded What is your living situation today? I have a [facility] place to live 07/02/2025 Education Answer Date Recorded What is the highest level of school you have completed or the highest degree you have received? Some college, no degree 04/24/2019 Comments No Sex and Gender Information Value Date Recorded Sex Assigned at Female 12/26/2018 8:37 PM COMMUNICATIONS ELECTRICIAN SUPERVISOR Legal Sex Female 2:43 PM COMMUNICATIONS ELECTRICIAN SUPERVISOR Gender Identity Female 12/26/2018 8:37 PM COMMUNICATIONS ELECTRICIAN SUPERVISOR Sexual Orientation Choose not to disclose 2020 3:46 PM CDT documented as of this encounter Plan of Treatment Upcoming Encounters Date Type Department Care Team (Late st Contact Info) Description 08/11/2025 8:00 AM CDT Office Visit Department of Palliative Care in [place], [place] [address] [place] [address] Meghan Osorio M.D. 200 [place] [address] 08/11/2025 9:00 AM CDT Nurse Only Section of Infectious Diseases in [place], [place] [address] [place] [phone] Jessica Rousseau M.B.B.S. [address] [place] [phone] 08/11/2025 1:00 PM CDT Clinical Support Department of Palliative Care in [place], [place] [address] [place] [phone] Uma Aly APRN, C.N.P., M.S.N. [address] [place] [phone] 08/13/2025 10:00 AM CDT Lab Department of Laboratory Medicine and Pathology, [facility], in [place], [place] [address] [place] [phone] Jessica Rousseau M.B.B.S. [address] [place] [phone] 08/13/2025 10:30 AM CDT [facility] [place], [place] [address] [place] [phone] Jessica Rousseau M.B.B.S. [address] [place] [phone] Nelli Parker, Pharm.D., R.Ph. [address] [place] [phone] 08/13/2025 11:00 AM CDT Nurse [facility] in [place], [place] [address] [place] [phone] Jessica Rousseau M.B.B.S. [address] [place] [phone] 08/13/2025 11:30 AM CDT Office Visit [facility] Transplantation and Clinical Regeneration in [place], [place] [address] [place] [address] Jessica Rousseau M.B.B.S. [address] [place] [phone] 08/13/2025 3:00 PM CDT Clinical Support Department of Palliative Care in [place], [place] [address] [place] [phone] Meghan Osorio M.D. [address] [place] [phone] Mary Garcia M.SLavern., L.I.C.S.W. [address] [place] [phone] 08/25/2025 8:00 AM CDT Telemedicine [facility] Transplantation and Clinical Regeneration in [place], [place] [address] [place] [phone] Jessica Rousseau M.B.B.S. [address] [place] [phone] documented as of this encounter Visit Diagnoses Not on filedocumented in this encounter Additional Health Concerns Infection Onset Date Last Indicated Resolved Time Protective Environment 03/02/2023 03/02/2023 Assessment Noted Time PHQ-9 Depression Total Score: 2 12/10/19 25 2:46 PM COMMUNICATIONS ELECTRICIAN SUPERVISOR documented as of this encounter Care Teams Claims Correspondence Clerk Relationship Specialty Start Date End Date Renzo Andres M.D. [address] [place] [phone] PCP - General Family Medicine 04/25/23 documented as of this encounter
--- OUTSIDE RECORDS SUMMARY | 2025-08-09 14:37 | XMS_ITS | Encounter Summary ---
Author Organization [facility] Address [address] [place] [address] Care Team Providers Care Damage Prevention Coordinator Name Role Phone Renzo Andres M.D. Primary Care Provider [phone] Encounter Details Date Type Department Care Team (Latest Contact Info) Description 07/01/2025 Clinical Communication Pedro Aravind [facility] in [place], [place] [address] [place] [address] Uma Goel, R.N. Social History Tobacco Use [...] needed for daily living? No 07/02/2025 [facility] Utilities Answer Date Recorded In the past 12 months has th e electric, gas, oil, or water company threatened to shut off services in your home? No 07/02/2025 Depression Answer Date Recor ded PHQ-9 Total Score (max 27) 12 07/08 Housing Stability Answer Date Recorded What is your living situation today? I have a [facility] place to live 07/02/2025 Education Answer Date Recorded What is the highest level of school you have completed or the highest degree you have received? Some college, no degree 04/24/2019 Comments No Sex and Gender Information Value Date Recorded Sex Assigned at Female 12/26/2018 8:37 PM MARKETING PROPOSAL COORDINATOR Legal Sex Female 2:43 PM MARKETING PROPOSAL COORDINATOR Gender Identity Female 12/26/2018 8:37 PM MARKETING PROPOSAL COORDINATOR Sexual Orientation Choose not to disclose 2020 3:46 PM CDT documented as of this encounter Plan of Treatment Upcoming Encounters Date Type Department Care Team (Late st Contact Info) Description 08/11/2025 8:00 AM CDT Office Visit Department of Palliative Care in [place], [place] [address] [place] [phone] Meghan Osorio M.D. [address] [place] [phone] 08/11/2025 9:00 AM CDT Nurse Only Section of Infectious Diseases in [place], [place] [address] [place] [address] Jessica Rousseau M.B.B.S. [address] [place] [phone] 08/11/2025 1:00 PM CDT Clinical Support Department of Palliative Care in [place], [place] [address] [place] [phone] Uma Aly APRN, C.N.P., M.S.N. [address] [place] [phone] 08/13/2025 10:00 AM CDT Lab Department of Laboratory Medicine and Pathology, [facility], in [place], [place] [address] [place] [phone] Jessica Rousseau M.B.B.S. [address] [place] [phone] 08/13/2025 10:30 AM CDT Office Visit Pedro Fatima [place] [facility] in [place], [place] [address] [place] [phone] Jessica Rousseau M.B.B.S. [address] [place] [phone] Nelli Parker, Pharm.D., R.Ph. [address] [place] [phone] 08/13/2025 11:00 AM CDT Nurse Only Pedro Fatima [place] in [place], [place] [address] [place] [phone] Jessica Rousseau M.B.B.S. [address] [place] [phone] 08/13/2025 11:30 AM CDT Office Visit [facility] Transplantation and Clinical Regeneration in [place], [place] [address] [place] [address] Jessica Rousseau M.B.B.S. [address] [place] [phone] 08/13/2025 3:00 PM CDT Clinical Support Department of Palliative Care in [place], [place] [address] [place] [phone] Meghan Osorio M.D. [address] [place] [phone] Mary Garcia M.S.W., L.I.C.S.W. [address] [place] [phone] 08/25/2025 8:00 AM CDT Telemedicine [facility] Transplantation and Clinical Regeneration in [place], [place] [address] [place] [phone] Jessica Rousseau M.B.B.S. [address] [place] [phone] documented as of this encounter Visit Diagnoses Not on filedocumented in this encounter Additional Health Concerns Infection Onset Date Last Indicated Resolved Time Protective Environment 03/02/2023 03/02/2023 Assessment Noted Time PHQ-9 Depression Total Score: 2 12/10/19 25 2:46 PM MARKETING PROPOSAL COORDINATOR documented as of this encounter Care Teams Damage Prevention Coordinator Relationship Specialty Start Date End Date Renzo Andres M.D. [address] [place] [address] [place] [phone] PCP - General Family Medicine 04/25/23 documented as of this encounter
--- OUTSIDE RECORDS SUMMARY | 2025-08-09 14:37 | XMS_ITS | Encounter Summary ---
Author Organization [facility] Address [address] [place] [address] Care Team Providers Care Property Controller Name Role Phone Renzo Andres M.D. Primary Care Provider [phone] Reason for Visit * Reason Onset Date Comments Nurse Assessment 06/02/2025 Encounter Details Date Type Department Care Team (Latest Contact Info) Description 06/02/2025 Clinical [facility] in [place], [place] [address] [place] [address] Transplant, Coordinator, Sanjana Nurse Assessment Social History [...] for daily living? No 07/02/2025 [facility] Utilities Answer Date Recorded [...] [facility] to live 07/02/2025 Education Answer Date Recorded What is the highest level of school you have completed or the highest degree you have received? Some college, no degree 04/24/2019 Comments No Sex and Gender Information Value Date Recorded Sex Assigned at Female 12/26/2018 8:37 PM ANATOMIC PATHOLOGY MANAGER Legal Sex Female 2:43 PM ANATOMIC PATHOLOGY MANAGER Gender Identity Female 12/26/2018 8:37 PM ANATOMIC PATHOLOGY MANAGER Sexual Orientation Choose not to disclose [...] Office Visit Department of Palliative Care in [address] [phone] Meghan Osorio M.D. [address] [place] [phone] 08/11/2025 9:00 AM CDT Nurse Only Section of Infectious Diseases in [address] [phone] Jessica Rousseau M.B.B.S. [address] [place] [phone] 08/11/2025 1:00 PM CDT Clinical Support Department of Palliative Care in [address] [phone] Uma Aly APRN, C.N.P., M.S.N. [address] [place] [phone] 08/13/2025 10:00 AM CDT Lab Department of Laboratory Medicine and Pathology, [facility], in [place], [place] [address] [place] [address] Jessica Rousseau M.B.B.S. [address] [place] [phone] 08/13/2025 10:30 AM CDT [facility] in [place], [place] [address] [place] [address] Jessica Rousseau M.B.B.S. [address] [place] [phone] Nelli Parker Pharm.D., R.Ph. [address] [place] [phone] 08/13/2025 11:00 AM CDT Nurse Only [facility] for Transplantation and Clinical Regeneration in [place], [place] [address] [place] [address] Jessica Rousseau M.B.B.S. [address] [place] [phone] 08/13/2025 11:30 AM CDT [facility] in [place], [place] [address] [place] [address] Jessica Rousseau M.B.B.S. [address] [place] [phone] 08/13/2025 3:00 PM CDT Clinical Support Department of Palliative Care in [place], [place] [address] [place] [address] Meghan Osorio M.D. [address] [place] [phone] Mary Garcia M.S.W., L.I.C.S.W. [address] [place] [address] 08/25/2025 8:00 AM CDT Telemedicine [facility] and Clinical Regeneration in [place], [place] [address] [place] [address] Jessica Rousseau M.B.BKatalinaS. [address] [place] [phone] documented as of this encounter Visit Diagnoses Not on filedocumented in this encounter Additional Health Concerns Infection Onset Date Last Indicated Resolved Time Protective Environment 03/02/2023 03/02/2023 Assessment Noted Time PHQ-9 Depression Total Score: 2 12/10/19 25 2:46 PM ANATOMIC PATHOLOGY MANAGER documented as of this encounter Care Teams Property Controller Relationship Specialty Start Date End Date Renzo Andres M.D. [address] [place] [phone] PCP - General Family Medicine 04/25/23 documented as of this encounter
[2025-08-09 14:51] LABS: Hematocrit* 38.0 % (33.0-51.0); Hemoglobin* 12.6 gm/dL (12.0-16.0); Immature Granulocytes Pct Auto 1.1 %; Lactate* 1.9 mmol/L (0.5-1.9); Lymphocytes Absolute Auto 0.90 K/uL (0.90-2.90); Mean Corpuscular HGB Conc 33 gm/dL (32-36); Mean Corpuscular Hemoglobin 27 pg (26-34); Mean Corpuscular Volume 82 fL (80-100); RDW Coefficient of Variation % 13.3 % (11.5-15.5); Red Blood Count* 4.65 m/uL (4.00-5.20); White Blood Count* 4.42 K/uL (4.50-11.00)
[2025-08-09 15:00] LABS: Immature Granulocytes Abs Auto 0.00 K/uL (0.00-0.30); Slide Review Reflex No
[2025-08-09 15:02] LABS: Chloride* 103 mmol/L (96-114); Sodium* 138 mmol/L (135-149)
[2025-08-09 15:03] LABS: Potassium* 4.4 mmol/L (3.6-5.1)
[2025-08-09 15:05] LABS: Blood Urea Nitrogen* 11 mg/dL (5-24); Creatinine* 0.8 mg/dL (0.5-1.5); Est. Creatinine Clearance* 98.07; Estimated Glomerular Filt Rate 98 ml/min
[2025-08-09 15:06] LABS: Anion Gap 7 mEq/L (7-15); Calcium* 9.4 mg/dL (8.4-10.6); Carbon Dioxide* 28 mmol/L (20-32); Glucose* 130 mg/dL (60-115)
[2025-08-09 15:30] LABS: PCR FLU A Negative PCR FLU A (Negative); PCR FLU B Negative PCR FLU B (Negative); PCR RSV Negative PCR RSV (Negative); SARS PCR* Negative SARS-CoV-2 (Negative)
[2025-08-09 16:26] VITALS: BP 124/91; PULSE 91; RESP 18; TEMP 36.5; O2SAT 98
[2025-08-09 16:32] LABS: Appearance Urine Clear (Clear)
== END 2025-08-09 16:59 | disposition home or self-care (01) ==
PROVIDERS: Emergency Provider Emergency Medicine; PCP Registered Nurse
DX: R07.9 Chest pain, unspecified (principal)
CPT/HCPCS: 36415; 71046; 74176; 80048; 81001; 83605; 85025; 87040; 87631; 96374; 99283; 99284; A9270; J1885; J7030

== ENCOUNTER 2025-08-21 14:29 | Emergency (ER) | payer MEDICARE, BC, SELFPAY ==
[2025-08-21] VITALS (8 sets, daily range): BP systolic 120–138; BP diastolic 91–92; PULSE 85–97; RESP 13–25; TEMP 36.7; O2SAT 95–99; BMI 35.6
--- OUTSIDE RECORDS SUMMARY | 2025-08-21 14:31 | XMS_ITS | Clinical Summary ---
Author Organization [facility] Address [address] [place] [address] Care Team Providers Care Bottom Turner Name Role Phone System, Provider Not In [...] HEPATITIS C SCREENING Completed 08/02/2023, 019 Insurance Qoof OR MEDICARE Qoof OR MEDICARE Care Teams Bottom Turner Relationship Specialty Start Date End Date System, Provider Not In PCP - General Clinic 06/08/22
--- OUTSIDE RECORDS SUMMARY | 2025-08-21 14:31 | XMS_ITS | Clinical Summary ---
Author Organization [employer] Address [address] [place] [id number] Care Team Providers Care Climatology Professor Name Role Phone Antoinette Palacio PhD, LP Unavailable [phone] Shweta Graciakim Huber OFFICE ASSISTANCE Unavailable [phone] Unavailable [phone] Staff, Other Clinical Unavailable UnavailErmelinda Cadet MD [...] once daily. 90 Tablet 06/05/20 25 Active acyclovir (ZOVIRAX) 400 mg tablet Take 400 mg by mouth two times daily. 08/13/20 25 Active HYDROmorphone 2 mg tablet Take 2 mg by mouth at bedtime. 07/17/20 25 Active melatonin 5 mg tablet Take 5-10 mg by mouth once daily in the evening. Active penicillin v potassium (PEN-VEE K) 500 mg tablet Take 500 mg by mouth two times daily before meals. 04/29/20 25 Active posaconazole (NOXAFIL) 100 mg delayed release tablet Take 300 mg by mouth once daily with a meal. 08/13/20 25 Active trimethoprim-sulfa methoxazole 80-400 mg tab Take 1 Tablet by mouth once daily. 07/29/20 25 Active Active Problems Problem Noted Date [...] Encounters Date Type Department Care Team Description 08/18/2025 11:20 AM CDT Office Visit [facility] [address] [place] [address] Fercho Fragoso MD Nausea (Body aches, sob and chills x 1 week and fatigue ) 08/17/2025 12:26 PM CDT - 08/17/2025 11:59 PM CDT Hospital Encounter [facility] [address] [place] [address] Adjustment disorder with anxious mood (Primary Dx); Generalized anxiety disorder; Major depressive disorder, recurrent episode, moderate (HC) 08/17/2025 Travel 08/14/2025 Travel 08/13/2025 Telephone [facility] [address] [place] [address] Pcp, No Appointment Reminder 08/12/2025 Telephone [facility] [address] [place] [address] Renita Pichardo PsyD, LP Late Cancel Appointment 07/30/2025 Telephone [facility] [address] [place] [address] Ivy Garcia, RN [facility] 07/30/2025 Telephone [facility] [address] [place] [address] Ivy Garcia, RN [facility] 07/30/2025 Telephone [facility] [address] [place] [address] Ivy Garcia, RN [facility] 07/29/2025 1:00 PM CDT Telemedicine [facility] [address] [facility] [phone] Renita Pichardo PsyD, LP Psychotherapy 07/13/2025 1:45 PM CDT Telemedicine [facility] [address] [place] [address] Renita Pichardo PsyD, LP Psychotherapy 07/06/2025 2:45 PM CDT Telemedicine [facility] [address] [place] [address] Renita Pichardo PsyD, LP Psychotherapy 07/01/2025 Nurse Triage [facility] [address] [place] [address] Ermelinda Pierre MD Abdominal Pain 06/29/2025 11:15 AM CDT Telemedicine [facility] [address] [place] [address] Renita Pichardo PsyD, LP Psychotherapy 06/22/2025 11:15 AM CDT Telemedicine [facility] [address] [place] [address] Renita Pichardo PsyD, LP Psychotherapy 06/18/2025 Telephone [facility] [address] [place] [address] Renita Pichardo PsyD, LP Late Cancel Appointment (APT 06/19/2025) 06/17/2025 Telephone [facility] [address] [place] [address] Renita Pichardo PsyD, LP Late Cancel Appointment 06/08/2025 11:15 AM CDT Telemedicine [facility] [address] [place] [address] Renita Pichardo PsyD, LP Psychotherapy 06/08/2025 Nurse Triage [facility] [address] [place] [address] Ermelinda Pierre MD Appointment 06/05/2025 1:00 PM CDT Telemedicine [facility] [address] [place] [address] Felicia Weathers NP Follow Up; Medication Management; Telehealth 06/05/2025 Travel 06/01/2025 8:45 AM CDT Telemedicine [facility] [address] [place] [address] Renita Pichardo PsyD, LP Psychotherapy 05/29/2025 Telephone [facility] [address] [place] [address] Iris Victor [facility] Care Coordination (Re Engagement ) 05/28/2025 Telephone [facility] [address] [place] [address] Renita Pichardo PsyD, LP FYI (Regarding appointment) from Last 3 Months Immunizations Immunization Administration [...] Answer Date Recorded PHQ-2 TOTAL SCORE 6 08/17/2025 Social Connections Answer Date Recorded Frequency of [...] on file Legal Sex Female 5:23 AM [employer] OR TRAP Gender Identity Not on file Sexual Orientation [...] Sign Reading Time Taken Comments Blood Pressure 110/78 08/18/2025 11:44 AM CDT Pulse 105 08/18/2025 11:44 AM CDT Temperature 36.8 C (98.2 F) 08/18/2025 11:44 AM CDT Respiratory Rate 18 11/21/2023 9:09 AM [employer] NET OR TRAP Oxygen Saturation 96% 08/18/2025 11:44 AM CDT Inhaled Oxygen Concentration - - Weight 106.1 kg (234 lb) 08/18/2025 11:44 AM CDT Height 172.7 cm (5' 8) 08/18/2025 11:44 AM CDT Body Mass Index 35.58 08/18/2025 11:44 AM CDT Plan of Treatment Upcoming Encounters Date Type Department Care Team (Late st Contact Info) Description 08/25/2025 9:00 AM CDT Appointment [facility] [address] [place] [address] 08/26/2025 9:00 AM CDT Appointment [facility] [address] [place] [address] 08/27/2025 9:00 AM CDT Appointment [facility] [address] [facility] [place] [address] 09/01/2025 9:00 AM CDT Appointment [facility] [address] [facility] [place] [address] 09/02/2025 9:00 AM CDT Appointment [facility] [address] [place] [address] 09/03/2025 9:00 AM CDT Appointment [facility] [address] [place] [address] 09/08/2025 9:00 AM CDT Appointment [facility] [address] [place] [address] 09/09/2025 9:00 AM CDT Appointment [facility] [address] [place] [address] 09/10/2025 9:00 AM CDT Appointment [facility] [address] [facility] [place] [address] 09/11/2025 10:30 AM CDT Telemedicine [facility] [address] [facility] [phone] Renita Pichardo, Henna, LP [address] [facility] [address] [place] [address] 09/11/2025 2:00 PM CDT Telemedicine [facility] [address] [place] [address] Felicia Weathers, MUSTAPHA [address] [place] [address] 09/15/2025 9:00 AM CDT Appointment [facility] [address] [facility] [place] [address] 09/16/2025 9:00 AM CDT Appointment [facility] [address] [place] [address] 09/17/2025 9:00 AM CDT Appointment [facility] [address] [place] [address] 09/22/2025 9:00 AM [employer] OR TRAP Appointment [facility] [address] [facility] [place] [address] 09/23/2025 9:00 AM [employer] OR TRAP Appointment [facility] [address] [place] [address] 09/24/2025 9:00 AM [employer] OR TRAP Appointment [facility] [address] [place] [address] 09/29/2025 9:00 AM [employer] OR TRAP Appointment [facility] [address] [place] [address] 09/30/2025 9:00 AM [employer] OR TRAP Appointment [facility] [address] [place] [address] 10/01/2025 9:00 AM [employer] OR TRAP Appointment [facility] [address] [place] [address] 10/06/2025 9:00 AM [employer] OR TRAP Appointment [facility] [address] [place] [address] 10/07/2025 9:00 AM [employer] OR TRAP Appointment [facility] [address] [place] [address] 10/08/2025 9:00 AM [employer] OR TRAP Appointment [facility] [address] [place] [address] 10/13/2025 9:00 AM [employer] NET OR TRAP Appointment [facility] [address] [place] [address] 10/14/2025 9:00 AM [employer] NET OR TRAP Appointment [facility] [address] [place] [address] 10/20/2025 9:00 AM [employer] NET OR TRAP Appointment [facility] [address] [place] [address] 10/21/2025 9:00 AM [employer] OR TRAP Appointment [facility] [address] [facility] [place] [address] 10/22/2025 9:00 AM [employer] OR TRAP Appointment [facility] [address] [facility] [place] [address] 10/27/2025 9:00 AM [employer] OR TRAP Appointment [facility] [address] [facility] [place] [address] 10/28/2025 9:00 AM [employer] OR TRAP Appointment [facility] [address] [facility] [place] [address] 10/29/2025 9:00 AM [employer] NET OR TRAP Appointment [facility] [address] [facility] [place] [address] 11/03/2025 9:00 AM [employer] OR TRAP Appointment [facility] [address] [place] [address] 11/04/2025 9:00 AM [employer] OR TRAP Appointment [facility] [address] [facility] [place] [address] 11/05/2025 9:00 AM [employer] NET OR TRAP Appointment [facility] [address] [place] [address] 11/10/2025 9:00 AM [employer] NET OR TRAP Appointment [facility] [address] [place] [address] 11/11/2025 9:00 AM [employer] NET OR TRAP Appointment [facility] [address] [place] [address] 11/17/2025 9:00 AM [employer] OR TRAP Appointment [facility] [address] [place] [address] 11/18/2025 9:00 AM [employer] OR TRAP Appointment [facility] [address] [facility] [place] [address] Health Maintenance Due Date Last Done Comments Pneumococcal series for age 6-49 (1 of 2 - PCV) 02/03/2008 Tetanus booster 09/02/2022 09/02/2012, 07/10/2003 Pap test for age 21-65 10/15/2022 9 (Verified in Care Everywhere or Patient Record), 11/25/2013, 03/03/2011, Additional history exists COVID-19 vaccine series ( season) 2025 11/10/2021, 03/30/2021, 03/02/2021 Influenza Vaccine (#1) 2025 9, 09/02/2012, 09/02/2012, Additional history exists BMI (ht and wt on same day) for age 18+ 08/18/2026 08/18/2025, 06/23/2024, 02/15/2023, Additional history exists Depression screening for age 12+ 08/18/2026 08/18/2025, 08/17/2025, 10/02/2024, Additional history exists RSV vaccine for adults or (1 - 1-dose 75+ series) 02/03/2064 Hepatitis B series for 19+ Completed 03/07, 02/19/2001, 10/31/2000, Additional history exists HPV series for age 9-45 Completed 11/08/20 07, 06/27/2007, 04/26/2007 HIV for age 15-65 Completed 12/26/2010 Hepatitis C screening for ag e 18-79 Completed 08/02/2023 Procedures Procedure Name Priority Date/Time Associated Diagnosis Comments RED CELL MORPHOLOGY STAT 08/18/2025 1 2:35 PM CDT Myalgia PLATELET ESTIMATE STAT 08/18/2025 12: 35 PM CDT Myalgia MANUAL DIFFERENTIAL STAT 08/18/2025 1 2:35 PM CDT Myalgia CBC WITH AUTO DIFFERENTIAL STAT 08/18/2025 12:35 PM CDT Myalgia C-REACTIVE PROTEIN STAT 08/18/2025 12 :35 PM CDT Myalgia CBC WITH AUTO DIFFERENTIAL STAT 08/18/2025 12:35 PM CDT Myalgia TSH Routine 08/18/2025 12:35 PM CDT Myalgia ANTI HCV Routine 08/02/2023 1:57 PM CDT Need for hepatitis C screening test SHEET METAL TECHNICIAN THIN PREP PAP SCREEN IMAGED Routine 11/25/2013 11:15 AM [employer] OR TRAP Screening for malignant neoplasm of the cervix ANTI HIV 1/2 Routine 12/26/2010 5:05 PM [employer] OR TRAP Supervision of normal first (HC) from Last 3 Months or Most Recently Relevant to Health Maintenance Results * (ABNORMAL) CBC WITH AUTO DIFFERENTIAL (08/18/2025 12:35 PM CDT) WHITE BLOOD COUNT 3.5(L) 4.5 - 11.0 thou/cu mm 08/18/2025 2:12 PM [facility] RED BLOOD COUNT 4.34 4.00 - 5.20 mil/cu mm 08/18/2025 2:12 PM [facility] HEMOGLOBIN 11.7(L) 12.0 - 16.0 g/dL 08/18/2025 2:12 PM [facility] HEMATOCRIT 36.0 33.0 - 51.0 % 08/18/2025 2:12 PM [facility] MCV 83 80 - 100 fL 08/18/2025 2:12 PM [facility] MCH 27.0 26.0 - 34.0 pg 08/18/2025 2:12 PM [facility] MCHC 32.5 32.0 - 36.0 g/dL 08/18/2025 2:12 PM [facility] RDW 13.9 11.5 - 15.5 % 08/18/2025 2:12 PM [facility] PLATELET COUNT 230 140 - 440 thou/cu mm 08/18/2025 2:12 PM [facility] MPV 8.2 6.5 - 11.0 fL 08/18/2025 2:12 PM [facility] Blood BLOOD SPECIMEN / Unknown [facility] / Unknown 08/18/2025 12:35 PM CDT 08/18/2025 12:35 PM CDT Fercho Fragoso MD HEMATOLOGY Final R esult Performing Organization Address City/[facility]/ZIP Co de Phone Number [facility] [address] [place] [address] * (ABNORMAL) RED CELL MORPHOLOGY (08/18/2025 12:35 PM CDT) ELLIPTOCYTES Few 08/18/2025 2:11 PM CDT [facility] POLYCHROMASIA Slight 08/18/2025 2:11 PM CDT [facility] RBC COMMENT Present(A) RBC morphology appears normal, RBC morphology within normal limits for newborns. 08/18/2025 2:11 PM CDT [facility] Blood BLOOD SPECIMEN / Unknown [facility] / Unknown 08/18/2025 12:35 PM CDT 08/18/2025 12:35 PM CDT Fercho Fragoso MD HEMATOLOGY Final R esult Performing Organization Address City/[facility]/ZIP Co de Phone Number [facility] [address] [place] [address] * PLATELET ESTIMATE (08/18/2025 12:35 PM CDT) PLATELET ESTIMATE Adequate Adequate, No estimate 08/18/2025 2:11 PM CDT [facility] Blood BLOOD SPECIMEN / Unknown [facility] / Unknown 08/18/2025 12:35 PM CDT 08/18/2025 12:35 PM CDT Fercho Fragoso MD HEMATOLOGY Final R esult Performing Organization Address City/[facility]/ZIP Co de Phone Number [facility] [address] [place] [address] * (ABNORMAL) MANUAL DIFFERENTIAL (08/18/2025 12:35 PM CDT) % NEUTROPHILS 66.0 % 08/18/2025 2:11 PM T [facility] % LYMPHOCYTES 21.0 % 08/18/2025 2:11 PM T [facility] % MONOCYTES 5.0 % 08/18/2025 2:11 PM [facility] % EOSINOPHILS 5.0 % 08/18/2025 2:11 PM T [facility] % BASOPHILS 1.0 % 08/18/2025 2:11 PM T [facility] % METAMYELOCYTES 2.0(H) <0.1 % 08/18/20 2:11 PM T [facility] NEUTROPHILS ABSOLUTE 2.3 1.7 - 7.0 thou/cu mm 08/18/2025 2:11 PM [facility] LYMPHOCYTES ABSOLUTE 0.7(L) 0.9 - 2.9 thou/cu mm 08/18/2025 2:11 PM [facility] MONOCYTES ABSOLUTE 0.2 <0.9 thou/cu mm 08/18/2025 2:11 PM T [facility] EOSINOPHILS ABSOLUTE 0.2 <0.5 thou/cu mm 08/18/2025 2:11 PM [facility] BASOPHILS ABSOLUTE 0.0 <0.3 thou/cu mm 08/18/2025 2:11 PM [facility] ABSOLUTE METAMYELOCYTES 0.1(H) <=0.0 thou/cu mm 08/18/2025 2:11 PM [facility] Blood BLOOD SPECIMEN / Unknown [facility] / Unknown 08/18/2025 12:35 PM CDT 08/18/2025 12:35 PM CDT us Fercho Fragoso MD HEMATOLOGY Final R esult [facility] [address] [place], [place] [id number] * TSH (08/18/2025 12:35 PM CDT) TSH 0.78 mIU/L 08/19/2025 4:44 AM CDT [facility] Comment: Reference Range > or = 20 Years 0.40-4.50 Ranges First trimester 0.26-2.66 Second trimester 0.55-2.73 Third trimester 0.43-2.91 Blood BLOOD SPECIMEN / Unknown [facility] / Unknown 08/18/2025 12:35 PM CDT 08/18/2025 12:35 PM CDT Fercho Fragoso MD CHEMISTRY Final R esult [facility] [address] [id number], * C-REACTIVE PROTEIN (08/18/2025 12:35 PM CDT) Pathologist [facility] C-REACTIVE PROTEIN <0.3 <0.5 mg/dL 08/18/2025 1:29 PM CDT [facility] Blood BLOOD SPECIMEN / Unknown [facility] / Unknown 08/18/2025 12:35 PM CDT 08/18/2025 12:35 PM CDT Fecrho Fragoso MD CHEMISTRY Final [facility] [address] [place] [address] * ANTI HCV (08/02/2023 1:57 PM CDT) HEPATITIS C ANTIBODY Non-Reacti ve Non-React nina 08/03/2023 3:36 PM CDT [facility] Comment:Please note, per www .CDC.gov: If [...] us Estefany BLAND SEND OUTS Final Result [facility] SENDOUT INTERNAL ZIP [id number] [address] [place] [address] * 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 COLLECTED:11/25/13 ACCESSIONED: 11/26/13 SIGNED: 12/02/13 [facility] PAP [place] CODE NIL [facility] Tissue specimen (specimen) (Cervical/Vagina l) 11/25/2013 11:15 AM [employer] P[employer] NET OR TRAP 11/25/2013 11:12 AM [employer] P[employer] NET OR TRAP us Cecile Montezjennifermartin PATHOLOGY/CYTOLOGY Final Resu lt [facility] INTERNAL ZIP [id number] [place] [address] * ANTI HIV 1/2 (12/26/2010 5:05 PM [employer] NET OR TRAP) ANTI HIV 1/2 Non-reacti ve [facility] Blood specimen (specimen) BLOOD SPECIMEN / Unknown 12/26/2010 5:05 PM [employer] NET OR TRAP 12/26/2010 4:55 PM [employer] P[employer] NET OR TRAP us Ladonna Nathan MOLD DRESSER SEND OUTS Final Result [facility] INTERNAL ZIP [id number] [place] [id number] from Last 3 Months or Most Recently Relevant to Health Maintenance Insurance MEDICARE PB ONLY MEDICARE PART A HB ONLY MEDICARE PART B HB ONLY [facility] [place] [phone] ATTN: FRANK WHITE [phone] [id number] Care Teams Climatology Professor Relationship Specialty Start Date End Date Ermelinda Pierre MD [facility] [place] [address] PCP - General Family Practice 06/23/24 Antoinette Palacio, PhD, LP Psychologist Psychology 04/24/12 Gracia Rock [facility] [address] [facility] [place] [address] Consulting Physician Clinical Nurse Specialist 07/07/22 Jesika Watt, KATRIN [address] [place] [address] Registered Dietitian Formula Room Worker 07/07/22 Staff, Other Clinical . Therapist Mental Health 07/03/22
--- NOTE | 2025-08-21 14:59 | CRLHL7_ITS ---
For Patients: As a result of the Century Cures Act, medical imaging exams and procedure reports are released immediately into your electronic medical record. You may view this report before your referring provider. If you have questions, please contact your health care provider. Indication: Shortness of breath. 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 Technique: Chest 2 views Comparison: Chest x-ray 08/09/2025 Findings/Impression: Cardiovascular and mediastinum: Heart size and vasculature are normal in caliber and appearance. Mediastinum is within normal limits. Lungs and pleural spaces: Lungs are clear. No sign of infiltrate or mass. No sign of pleural effusion. No pneumothorax. Bones and soft tissues: No significant findings. Dictated by Ignacio Ceja MD @ 08/21/2025 3:45:02 PM (Electronically Signed)
--- NOTE | 2025-08-21 15:03 | ED_ITS ---
HPI - SOB/Dyspnea General Date Seen: 08/21/25 Chief Complaint: Shortness of Breath/Dyspnea Stated Complaint: Shortness of breath Time Seen by Provider: 08/21/25 14:48 Source: patient Mode of arrival: ambulatory Limitations: no limitations History of Present Illness HPI Narrative: Patient is a 35-year-old female with a history bone marrow transplant in November at [facility]. 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 She states she has chronic shortness of breath but is usually intermittent. Over the past 2 days shortness of breath has been more consistent. Is not any worse than normal though she states. She has been seen in this emergency department multiple times for this shortness of breath. Workup has been consistently negative. She states she spoke to her [facility] providers on August 10 about the symptoms and she states they were not worried about it. She is concerned about [id number] disease. She denies fevers, chills, chest pain, abdominal pain, headache, lightheadedness, dizziness, weakness, numbness. No other concerns noted at this time. Related Data Home Medications ?Medication ?Instructions ?Recorded ?Confirmed duloxetine 60 mg capsule,delayed 60 mg PO BID 08/06/22 08/21/25 release acyclovir 400 mg tablet 400 mg PO BID 05/31/2508/21 aripiprazole 10 mg tablet 10 mg PO DAILY 05/31/2502/10 buprenorphine 5 mcg/hour weekly 1 patch topical Q7D ch ronic pain 05/31/25 08/21/25 transdermal patch pantoprazole 40 mg tablet,delayed 40 mg PO BID 5 08/21/25 release penicillin V potassium 500 mg 500 mg PO BID 05/31/25 1 tablet posaconazole 100 mg tablet,delayed 100 mg PO TID 05/3108/21/25 release cyclobenzaprine 5 mg tablet mg PO 07/19/25 Held on 08/21/25. Instructions: out hydromorphone 2 mg tablet PO 07/19/25 hydroxyzine HCl 25 mg tablet mg PO 07/19/25 hyoscyamine sulfate 0.125 mg tablet mg PO 07/19/25 olanzapine 2.5 mg tablet mg PO BID 07/19/25 olanzapine 5 mg tablet 5 mg PO QPM 08/31/25 09/21/2 5 prochlorperazine maleate 10 mg 10 mg PO Q6H PRN 08/21/25 tablet Previous Rx's ?Medication ?Instructions ?Recorded ketorolac 10 mg tablet 10 mg PO Q6H PRN pain #20 ta bs 06/17/25 cyclobenzaprine 10 mg tablet 10 mg PO HS PRN insomnia #14 tabs 07/02/25 Held on 08/21/25. Instructions: out hydroxyzine pamoate 25 mg capsule 25 mg PO TID PRN Yaneli n medication 07/02/25 enhancement #30 caps Allergies Allergy/AdvReac Type Severity Reaction Status Date / Time grapefruit Allergy Intermediate other Verified 08/21/25 14:39 amoxicillin Allergy Mild other Verified 08/21/25 14:39 bupropion (From Wellbutrin) Allergy Mild Hives Verified 08/21/25 14:39 Review of Systems Status of ROS: Reports: 10 or more systems reviewed and unremarkable except as noted in History and below [facility] Medical History Closed fracture of radius ?S52.90XA - Unspecified fracture of unspecified forearm, initial encounter for closed fracture (ICD-10) Depression ?F32.A - Depression, unspecified (ICD-10) Violation of controlled substance agreement ?Z91.148 - Patient's other noncompliance with medication regimen for other reason (ICD-10) Obesity ?E66.9 - Obesity, unspecified (ICD-10) Disorder of eye movements ?H51.9 - Unspecified disorder of binocular movement (ICD-10) Sciatica ?M54.30 - Sciatica, unspecified side (ICD-10) Neuropathy ?G62.9 - Polyneuropathy, unspecified (ICD-10) Migraines ?G43.909 - Migraine, unspecified, not intractable, without status migrainosus (ICD-10) Irritable bowel ?K58.9 - Irritable bowel syndrome, unspecified (ICD-10) Fibromyalgia ?M79.7 - Fibromyalgia (ICD-10) Anxiety ?F41.9 - Anxiety disorder, unspecified (ICD-10) Chronic myeloid leukemia (CML), BCR/ABL1-positive, in remission ?C92.11 - Chronic myeloid leukemia, BCR/ABL-positive, in remission (ICD-10) Surgical History History of eye surgery ?Z98.890 - Other specified postprocedural states (ICD-10) History of dilation and curettage ?Z98.890 - Other specified postprocedural states (ICD-10) History of bone marrow biopsy ?Z98.890 - Other specified postprocedural states (ICD-10) Social History Smoking Status: Never smoker Do you use any of these nicotine containing products: None Second hand tobacco smoke exposure: No How often do you have a drink containing alcohol: never How often do you have six or more drinks on one occasion: Never AUDIT-C Alcohol total score: 0 Non-prescribed substance use: denies use service: No Exam Narrative: Exam Narrative: Const: Well-nourished, Well-developed, in no distress Eyes: No conjunctival injection, and symmetrical lids HENT: Atraumatic external nose and ears. Moist mucous membranes. Neck: Symmetric, trachea midline, No thyromegaly. CVS: RRR, No murmurs or gallops. Peripheral pulses 2+ and equal in all extremities RESP: Unlabored respiratory effort. Clear to auscultation bilaterally. GI: Nontender/Nondistended, No rebound or guarding. MSK:Extremities w/o deformity, Normal Active ROM Skin: Warm, Dry. No rashes or lesions. Neuro: Normal Muscle tone, No focal neurological deficits. Psych: Awake, Alert, & Oriented x3. Appropriate mood and affect. Const: Vital Signs, click to edit/add: Vital Signs - 24 hr 08/21/25 14:33 08/21/25 15:14 08/21/25 15:15 Temperature 98.0 F Pulse Rate 93 91 Pulse Rate [Pulse Oximeter] 97 Respiratory Rate 16 Blood Pressure Blood Pressure [Ri ght Upper Arm] 120/91 H Pulse Oximetry 98 95 95 Oxygen Delivery Me thod Room Air 08/21/25 15:16 08/21/25 15:30 08/21/25 15:45 Temperature Pulse Rate 96 86 Pulse Rate [Pulse Oximeter] Respiratory Rate 20 25 H Blood Pressure Blood Pressure [Ri ght Upper Arm] Pulse Oximetry 97 97 99 Oxygen Delivery Me thod Room Air 08/21/25 16:00 08/21/25 16:04 Temperature Pulse Rate 85 92 Pulse Rate [Pulse Oximeter] Respiratory Rate 13 25 H Blood Pressure 138/92 H Blood Pressure [Ri ght Upper Arm] Pulse Oximetry 99 97 Oxygen Delivery Me thod Room Air Course Vital Signs Vital signs: Initial Vital Signs Temperature 98.0 F 08/21/25 14:33 Temperature Source Temporal Artery Scan 08/21/25 14:33 Pulse Rate 97 08/21/25 14:33 Respiratory Rate 16 08/21/25 14:33 Blood Pressure 120/91 H 08/21/25 14:33 Blood Pressure Mean 100 08/21/25 14:33 Pulse Oximetry 98 08/21/25 14:33 Oxygen Delivery Method Room Air 08/21/25 14:33 Vital Signs Temperature 98.0 F 08/21/25 14:33 Pulse Rate 97 08/21/25 14:33 Respiratory Rate 16 08/21/25 14:33 Blood Pressure 120/91 H 08/21/25 14:33 Pulse Oximetry 98 08/21/25 14:33 Oxygen Delivery Method Room Air 08/21/25 14:33 Temperature 98.0 F 08/21/25 14:33 Pulse Rate 92 08/21/25 16:04 Respiratory Rate 25 H 08/21/25 16:04 Blood Pressure 138/92 H 08/21/25 16:04 Pulse Oximetry 97 08/21/25 16:04 Oxygen Delivery Method Room Air 08/21/25 16:04 Medications Administered Medications: Discontinued Medications Generic Name Dose Route Start Last Admin Trade Name Freq PRN Reason Stop Dose Admin Ondansetron HCl 4 mg 08/21/25 15:14 08/21/25 15:28 Ondansetron Odt 4 Mg Tab PO 08/21/25 15:15 4 mg ONCE ONE Administration MDM - SOB/Dyspnea MDM Narrative Medical decision making narrative: Patient is a 35-year-old female presenting to the emergency department for shortness of breath. The differential diagnosis of shortness of breath is broad and includes common etiologies such as COPD, asthma, pneumonia, viral syndrome, etc. More serious etiologies considered include PE, CHF, coronary artery disease, pneumothorax, aortic dissection, aortic aneurysm. She has been seen in this emergency department multiple times for this same issue. This very well could be anxiety related. I will order a D-dimer to look for signs of PE. Chest x-ray or to the for signs pneumonia or pneumothorax. We do EKG and troponin to look for signs of coronary artery disease. She otherwise is appearing well and I do not believe she the has an aortic dissection or aortic aneurysm rupture. Will also order CBC, BMP, magnesium. Chest x-ray reviewed by myself and the radiologist shows no acute concerning abnormalities. EKG reviewed by myself independently shows no acute concerning abnormalities. Lab work returned showing no acute concerning abnormalities. Her workup is benign and I do believe he is safe for discharge. Lab Data Labs: Lab Results 08/21/25 08/21/25 Range/Units 14:59 15:13 WBC 4.03 L (4.50-11.00) K/uL RBC 4.39 (4.00-5.20) m/uL Hgb 12.2 (12.0-16.0) gm/dL Hct 36.4 (33.0-51.0) % MCV 83 (80-100) fL MCH 28 (26-34) pg MCHC 34 (32-36) gm/dL RDW Coeff of [place] 13.7 (11.5-15.5) % Plt Count 235 (140-440) K/uL Neut % (Auto) 65.3 (42.0-72.0) % Lymph % (Auto) 21.6 (20-44) % [place] % (Auto) 7.2 (0.0-11.0) % Eos % (Auto) 3.7 (0.0-7.0) % Baso % (Auto) 0.5 (0.0-3.0) % Neut # (Auto) 2.60 (1.7-7.0) K/uL Lymph # (Auto) 0.90 (0.90-2.90) K/uL [place] # (Auto) 0.30 (0.00-0.90) K/UL Eos # (Auto) 0.10 (0.00-0.50) K/uL Baso # (Auto) 0.00 (0.00-0.30) K/uL Abs Immat Gran (auto) 0.10 (0.00-0.30) K/uL Imm/Tot Granulo (auto) 1.7 % D-Dimer Quant (PE/DVT) < 0.27 (0.00-0.50) ug/ml Sodium 138 (135-149) mmol/L Potassium 4.0 (3.6-5.1) mmol/L Chloride 105 (96-114) mmol/L Carbon Dioxide 28 (20-32) mmol/L Anion Gap 5 L (7-15) mEq/L BUN 10 (5-24) mg/dL Creatinine 0.8 (0.5-1.5) mg/dL Estimated Creat Clear 98.07 Estimated GFR 98 ml/min Glucose 124 H (60-115) mg/dL Calcium 9.3 (8.4-10.6) mg/dL Magnesium 2.1 (1.5-2.6) mg/dL POC Troponin I 0.02 (0.01-0.04) ng/ml Imaging Data Chest x-ray: Radiologist's impression: Cardiovascular and mediastinum: Heart size and vasculature are normal in caliber and appearance. Mediastinum is within normal limits. Lungs and pleural spaces: Lungs are clear. No sign of infiltrate or mass. No sign of pleural effusion. No pneumothorax. Bones and soft tissues: No significant findings. Dictated by Ignacio Ceja MD @ 08/21/2025 3:45:02 PM ECG Data Attestation: I personally reviewed and interpreted this ECG as follows: Prior ECG tracings: available for review Interpretation: Normal sinus rhythm with rate of 84 beats per minute, normal intervals, normal axis, no ST or T-wave abnormalities. Appears similar previous EKGs on file. Discharge Plan Discharge Clinical Impression: Atypical chest pain Patient Disposition: Home, Self-Care Condition: Stable Instructions: Noncardiac Chest Pain (ED) Additional Instructions: I recommend close follow-up with your primary care provider about this chronic chest pain. Return to emergency department for new or worsening symptoms. Prescriptions: No Action duloxetine 60 mg capsule,delayed release(DR/EC) 60 mg PO BID acyclovir 400 mg tablet 400 mg PO BID aripiprazole 10 mg tablet 10 mg PO DAILY buprenorphine 5 mcg/hour patch weekly 1 patch topical Q7D penicillin V potassium 500 mg tablet 500 mg PO BID pantoprazole 40 mg tablet,delayed release (DR/EC) 40 mg PO BID posaconazole 100 mg tablet,delayed release (DR/EC) 100 mg PO TID olanzapine 2.5 mg tablet PO BID hydromorphone 2 mg tablet PO hyoscyamine sulfate 0.125 mg tablet PO hydroxyzine HCl 25 mg tablet PO cyclobenzaprine 5 mg tablet PO olanzapine 5 mg tablet 5 mg PO QPM prochlorperazine maleate 10 mg tablet 10 mg PO Q6H PRN ketorolac 10 mg tablet 10 mg PO Q6H PRN (Reason: pain) Qty: 20 0RF Rx Instructions: maximum total duration of 5 days from all oral, intranasal, or parenteral formulations hydroxyzine pamoate 25 mg capsule 25 mg PO TID PRN (Reason: Pain medication enhancement) Qty: 30 1RF cyclobenzaprine 10 mg tablet 10 mg PO HS PRN (Reason: insomnia) Qty: 14 0RF Follow Up/Referrals: Anny Matthews [facility] [Primary Care Provider, Family Practice] Stand Alone Forms: [facility] Instructions
[2025-08-21] MEDS: ONDANSETRON ODT 4 MG TAB PO (15:28)
[2025-08-21 15:29] LABS: Hematocrit* 36.4 % (33.0-51.0); Hemoglobin* 12.2 gm/dL (12.0-16.0); Immature Granulocytes Pct Auto 1.7 %; Mean Corpuscular HGB Conc 34 gm/dL (32-36); Mean Corpuscular Hemoglobin 28 pg (26-34); Mean Corpuscular Volume 83 fL (80-100); RDW Coefficient of Variation % 13.7 % (11.5-15.5); Red Blood Count* 4.39 m/uL (4.00-5.20); White Blood Count* 4.03 K/uL (4.50-11.00)
[2025-08-21 15:30] LABS: Immature Granulocytes Abs Auto 0.10 K/uL (0.00-0.30); Lymphocytes Absolute Auto 0.90 K/uL (0.90-2.90); Slide Review Reflex No
[2025-08-21 15:31] LABS: Chloride* 105 mmol/L (96-114); Potassium* 4.0 mmol/L (3.6-5.1); Sodium* 138 mmol/L (135-149)
[2025-08-21 15:34] LABS: Anion Gap 5 mEq/L (7-15); Blood Urea Nitrogen* 10 mg/dL (5-24); Calcium* 9.3 mg/dL (8.4-10.6); Carbon Dioxide* 28 mmol/L (20-32); Creatinine* 0.8 mg/dL (0.5-1.5); Est. Creatinine Clearance* 98.07; Estimated Glomerular Filt Rate 98 ml/min; Glucose* 124 mg/dL (60-115)
[2025-08-21 16:16] LABS: D Dimer Quantitative* < 0.27 ug/ml (0.00-0.50)
[2025-08-21 16:33] LABS: Troponin, Point-of-Care* 0.02 ng/ml (0.01-0.04)
== END 2025-08-21 16:45 | disposition home or self-care (01) ==
PROVIDERS: Emergency Provider Student in an Organized Health Care Education/Training Program; PCP Registered Nurse
DX: R07.89 Other chest pain (principal)
CPT/HCPCS: 36415; 71046; 80048; 83735; 84484; 85025; 85379; 93005; 99284; A9270

== ENCOUNTER 2025-10-27 15:42 | Outpatient (CLI) | payer MEDICARE, BC, SELFPAY | END 2025-10-27 15:43 | disposition home or self-care (01) | LOC: NFLDREF 10-28 11:35 | PROVIDERS: PCP Registered Nurse; Referring Provider Registered Nurse; Visit Provider Physician Assistant | DX: R11.2 Nausea with vomiting, unspecified (principal); R10.9 Unspecified abdominal pain | CPT/HCPCS: 87086 ==

== ENCOUNTER 2025-10-31 16:24 | Emergency (ER) | payer MEDICARE, BC, SELFPAY ==
--- OUTSIDE RECORDS SUMMARY | 2025-09-30 08:41 | XMS_ITS | Encounter Summary ---
Author Organization [facility] Address [address] [place] [address] Care Team Providers Care Vice President Of Finance Name Role Phone Renzo Andres M.D. Primary Care Provider [phone] Encounter Details DateTypeDepartmentCare Team (Latest Contact Info)Mdxrzbkqvwb96/12/2025 8:41 AM PIPE WASHER - 09/30/2025 11:59 PM CSTHospital Encounter Department of Laboratory Medicine in [place], [place] [address] [place] [phone] Jessica Rousseau M.B.B.S. 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); Transplant Stem Cell (HCC); Abnormal Finding Of Blood Chemistry Unspecified Discharge Disposition: Home or Self Care Social History Tobacco UseTypesPacks/DayYears UsedDateSmoking Tobacco: NeverSmokeless Tobacco: NeverAlcohol UseStandard Drinks/WeekCommentsNever0 (1 standard drink = 0.6 oz pure alcohol)Humiliation, Afraid, Rape, and Kick questionnaireAnswerDate RecordedWithin the last year, have you been afraid of your partner or ex-partner?No08/11/2025Within the last year, have you been humiliated or emotionally abused in other ways by your partner or ex-partner?No08/11/2025 Within the last year, have you been kicked, hit, slapped, or otherwise physically hurt by your partner or ex-partner?No08/11/2025Within the last year, have you been raped or forced to have any kind of sexual activity by your part ner or ex-partner?No08/11/2025Hunger Vital SignAnswerDate RecordedWithin the past 12 months, you worried that your food would run out before you got the money to buymore.Patient pmqliqwv22/25/2025Within the past 12 months, the food you bought just didn't last and you didn't have money to get more.Patient qywwqubm04/25/2025PRAPARE - TransportationAnswerDate RecordedIn the past 12 months, has lack of transportation kept you from medical appointments or from getting medications?No08/13/2025In the past 12 months, has lack of transportation kept you from meetings, work, or from getting things needed for daily living?No08/13/2025HC UtilitiesAnswerDate RecordedIn the past 12 months has the [employer], gas, oil, or water [employer] threatened to shut off services in your home?Patient xykpnrgj86/25/2025Postpartum DepressionAnswerDate RecordedPHQ- 9 Total Score (max 27)12007/08/2025Housing StabilityAnswerDate RecordedWhat is your living situation today?I have a steady place to live08/13/2025Education AnswerDate RecordedWhat is the highest level of school you have completed or the highest degree you have received?Some college, no oxawkm3004/24/2019 CommentsNoSex and Gender InformationValueDate RecordedSex Assigned at Tcrvpf8312/26/2018 8:37 PM CSTLegal EdoCnhynb18/02/2017 2:43 PM CSTGender Identity Mkzcak8412/26/2018 8:37 PM CSTSexual OrientationChoose not to hcfnjarh10/17/2021 3:46 PM CDTdocumented as of this encounter Medications at Time of Discharge MedicationSigDispense QuantityRefillsLast FilledStart DateEnd Date acyclovir (Zovirax) 400 mg tablet 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),Transplant Bone Marrow Allogeneic (HCC)Take 1 tablet (400 mg total) by mouth 2 (two) times a day. 180 tablet ARIPiprazole (Abilify) 10 mg tablet Take 1 tablet (10 mg total) by mouth daily. Dose change 12/02/2024 30 tablet cholecalciferol (Vitamin D3) 50 mcg (2,000 Unit) tablet Take 50 mcg by mouth daily. 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 120 capsule melatonin 5 mg tablet Take 5-10 mg by mouth at bedtime. penicillin V potassium (Veetids) 500 mg tablet 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),Transplant Bone Marrow Allogeneic (HCC)Take 1 tablet (500 mg total) by mouth 2 (two) times a day. 60 tablet posaconazole (NoxafiL) [address] tablet 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),Transplant Bone Marrow Allogeneic (HCC)Take 3 tablets (300 mg total) by mouth daily. 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 60 tablet alum-mag hydroxide-simeth (Maalox) 200-200-20 mg/5 mL suspension Take 30 mL by mouth every 4 (four) hours as needed for indigestion (dyspepsia). 354 mL buprenorphine (Butrans) 5 mcg/hour Indications:Chronic Pain/Nonacute PainPlace 1 patch on the skin once a week Indication: Chronic Pain/Nonacute Pain. 4 patch gabapentin (Neurontin) 300 mg capsule Take 1 capsule (300 mg total) by mouth 2 (two) times a day. 180 capsule hydrOXYzine (Atarax) 25 mg tablet Indications:AnxietyTake 1-2 tablets (25-50 mg total) by mouth every 6 (six) hours as needed for anxiety. 60 tablet naloxone (Narcan) 4 mg/actuation nasal spray Administer 1 spray (4 mg total) into nostril(s) once for 1 dose. Use 1 spray in 1 nostril. Repeat with second device in other nostril after 2-3 minutes if no or minimal response. 2 each OLANZapine (ZyPREXA) 5 mg tablet Take 1 tablet (5 mg total) by mouth once for 1 dose. 1 tablet ondansetron ODT (Zofran-ODT) 4 mg disintegrating tablet Dissolve 1-2 tablets (4-8 mg total) in the mouth every 8 (eight) hours as needed for nausea or vomiting. 20 tablet pantoprazole (Protonix) 40 mg EC tablet Take 40 mg by mouth 2 (two) times a day before morning and evening meals. prochlorperazine (Compazine) 10 mg tablet Take 1 tablet (10 mg total) by mouth every 6 (six) hours as needed for nausea. 30 tablet documented as of this encounter Plan of Treatment DateTypeDepartmentCare Team (Latest Contact Info)Cihsujuqkld46/29/2025 9:00 AM CSTOffice Visit Department of Obstetrics and Gynecology in [place], [place] [address] [place] [phone] Alice Linares M.D. [address] [place] [phone] 12/04/2025 1:30 PM CSTClinical Communication Virtual Review in [place], [place] [address] [place] [phone] 12/07/2025 8:10 AM CSTLab Department of Laboratory Medicine and Pathology, [facility], in [place], [place] [address] [place] [phone] Jessica Rousseau M.B.B.S. [address] [place] [phone] 12/07/2025 9:15 AM CSTAppointment Outpatient Procedure Center in [place], [place] [address] [place] [phone] Jessica Rousseau M.B.B.S. [address] [place] [phone] 12/07/2025 11:00 AM CSTDiagnostic Division of Pulmonary Medicine in [place], [place] [address] [place] [phone] Jessica Rousseau M.B.B.S. [address] [place] [phone] 12/07/2025 1:00 PM CSTOffice Visit [facility] in [place], [place] [address] [place] [phone] Jessica Rousseau M.B.B.S. [address] [place] [phone] 12/07/2025 1:30 PM CSTNurse Only [facility] in [place], [place] [address] [place] [phone] Jessica Rousseau M.B.B.S. [address] [place] [phone] 12/07/2025 2:00 PM CSTOffice Visit [facility] [place]note 2] for Transplantation and Clinical Regeneration in [place], [place] [address] [place] [phone] Jessica Rousseau M.B.B.S. [address] [place] [phone] 12/07/2025 3:00 PM CSTOffice Visit Department of Palliative Care in [place], [place] [address] [place] [phone] Martine Pardo B.M.B.S., BGordon, B.Ch. 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) Transplant Stem Cell (HCC) Abnormal Finding Of Blood Chemistry Unspecified COMPREHENSIVE METABOLIC PANEL, S/DNmsfppq16/12/2025 8:49 AM PIPE WASHER 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) Transplant Stem Cell (HCC) documented in this encounter Results * Magnesium (09/30/2025 8:49 AM PIPE WASHER)ComponentValueRef RangeTest MethodAnalysis TimePerformed AtPathologist SignatureMagnesium, P1.91.7 - 2.3 mg/dL09/30/2025 12:20 PM CSTOWATSpecimen (Source)Anatomical Location / LateralityCollection Method / VolumeCollection TimeReceived TimeBlood (Blood, Venous)09/30/2025 8:49 AM CST09/30/2025 10:35 AM PIPE WASHER Narrative Authorizing ProviderResult TypeResult StatusJessica DowlingBKatalinaS.LAB BLOOD ADD-ONFinal ResultPerforming OrganizationAddressCity/State/ZIP CodePhone Number [facility] [address] [place] [address], [facility] in [place] [address] [place] [address] * (ABNORMAL) Glucose, Fasting (09/30/2025 8:49 AM PIPE WASHER)ComponentValueRef Range Test MethodAnalysis TimePerformed AtPathologist SignatureGlucose, P146(H)70 - 100 mg/dL09/30/2025 11:45 AM CSTOWATLast Dtitgt9ya46/12/2025 10:35 AM CSTOWAT Specimen (Source)Anatomical Location / LateralityCollection Method / Volume Collection TimeReceived TimeBlood (Blood, Venous)09/30/2025 8:49 AM PIPE WASHER 09/30/2025 10:33 AM PIPE WASHER Narrative Authorizing ProviderResult TypeResult StatusJessica DowlingB.S.LAB BLOOD NON ADD-ONFinal ResultPerforming OrganizationAddressCity/State/ZIP CodePhone Number [facility] [address] [place] [address], [facility] in [place] [address], [place] [address] * (ABNORMAL) Comprehensive Metabolic Panel (09/30/2025 8:49 AM PIPE WASHER)Component ValueRef RangeTest MethodAnalysis TimePerformed AtPathologist Signature Potassium, P4.33.6 - 5.2 mmol/L111/30/2024 12:20 PM CSTOWATSodium, I261861 - 145 mmol/L111/30/2024 12:20 PM CSTOWATChloride, L79918 - 107 mmol/L111/30/2024 12:20 PM CSTOWATBicarbonate, P21(L)22 - 29 mmol/L111/30/2024 12:20 PM CSTOWAT Anion Gap, P137 - 15111/30/2024 12:20 PM CSTOWATBUN (Blood Urea Nitrogen), P66 - 21 mg/dL09/30/2025 12:20 PM CSTOWATCreatinine0.630.59 - 1.04 mg/dL09/30/2025 12:20 PM CSTOWATEstimated GFR (eGFR)>90>=60 mL/min/BSA09/30/2025 12:20 PM PIPE WASHER OWATComment: Estimated GFR calculated using the 2020 CKD_EPI creatinine equation. Calcium, Total, P9.78.6 - 10.0 mg/dL09/30/2025 12:20 PM CSTOWATGlucose, P CANCELEDmg/dL09/30/2025 10:35 AM CSTOWATComment: Duplicate test request. Result canceled by the ancillary. Protein, Total, P7.46.3 - 7.9 g/dL09/30/2025 12:20 PM CSTOWATAlbumin, P4.33.5 - 5.0 g/dL09/30/2025 12:20 PM CSTOWATAspartate Aminotransferase (AST), P318 - 43 U/L111/30/2024 12:20 PM CSTOWATAlkaline Phosphatase, P8635 - 104 U/L111/30/2024 12:20 PM CSTOWATAlanine Aminotransferase (ALT), P407 - 45 U/L111/30/2024 12:20 PM CSTOWATBilirubin, Total, P0.40.0 - 1.2 mg/dL09/30/2025 12:20 PM CSTOWATSpecimen (Source)Anatomical Location / LateralityCollection Method / VolumeCollection TimeReceived TimeBlood (Blood, Venous)09/30/2025 8:49 AM CST09/30/2025 10:35 AM PIPE WASHER Narrative Authorizing ProviderResult TypeResult StatusAaherb BarnesLAB BLOOD ADD-ONFinal ResultPerforming OrganizationAddressCity/State/ZIP CodePhone Number [facility] [address] [place] [address], [place] OWAT [facility] in [place] [address] [place] [address] * (ABNORMAL) CBC with Differential, Blood (09/30/2025 8:49 AM PIPE WASHER)ComponentValue Ref RangeTest MethodAnalysis TimePerformed AtPathologist SignatureHemoglobin 12.511.6 - 15.0 g/dL09/30/2025 10:46 AM TDJBRFXHrfxxxckvy67.535.5 - 44.9 % 09/30/2025 10:46 AM CSTOWATErythrocytes4.663.92 - 5.13 x10(12)/L111/30/2024 10:46 AM DMXIZMRDTD01.678.2 - 97.9 fL09/30/2025 10:46 AM CSTOWATRBC Distrib Width13.312.2 - 16.1 %09/30/2025 10:46 AM CSTOWATPlatelet Suips513658 - 371 x10(9)/L111/30/2024 10:46 AM CSTOWATLeukocytes3.83.4 - 9.6 x10(9)/L111/30/2024 10:46 AM CSTOWATNeutrophils2.411.56 - 6.45 x10(9)/09/30/2025 10:46 AM CSTOWAT Lymphocytes0.950.95 - 3.07 x10(9)/L111/30/2024 10:46 AM CSTOWATMonocytes0.21(L) 0.26 - 0.81 x10(9)/L111/30/2024 10:46 AM CSTOWATEosinophils0.180.03 - 0.48 x10(9)/L111/30/2024 10:46 AM CSTOWATBasophils0.040.01 - 0.08 x10(9)/L111/30/2024 10:46 AM CSTOWATSpecimen (Source)Anatomical Location / LateralityCollection Method / VolumeCollection TimeReceived TimeBlood (Blood, Venous)09/30/2025 8:49 AM CST09/30/2025 10:33 AM PIPE WASHER Narrative Authorizing ProviderResult TypeResult StatusAaherb BarnesLAB BLOOD ADD-ONFinal ResultPerforming OrganizationAddressCity/State/ZIP CodePhone Number [facility] [address] [place] [address], [facility] OWAT [facility] in [place] [place] [address] documented in this encounter Visit Diagnoses Diagnosis 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 [address] [place] [address] [place] Hansen [phone] PCP - GeneralFamily Medicine04/2505/2312/4/25documented as of this encounter
--- OUTSIDE RECORDS SUMMARY | 2025-10-13 11:20 | XMS_ITS | Encounter Summary ---
Author Organization [facility] Address [address] [place] [address] Care Team Providers Care Microbiology Lab Manager Name Role Phone Renzo Andres M.D. Primary Care Provider [phone] Reason for Visit * ReasonCommentsImmunizations Encounter Details DateTypeDepartmentCare Team (Latest Contact Info)Ddkpbsbbsyo31/25/2025 11:20 AM CSTNurse Only Section of Infectious Diseases in [place], [place] [address] [place] [phone] Pato Sanchez M.D., Ph.D. [address] [place] [phone] Jennifer Marx R.N. [address] [place] [phone] Immunizations Social History Tobacco UseTypesPacks/DayYears UsedDateSmoking Tobacco: NeverSmokeless [...] before you got the money to buymore.Patient azlmjlud63/25/2025Within the past 12 months, the food you bought just didn't last and you didn't have money to get more.Patient opwszvss11/25/2025PRAPARE - TransportationAnswerDate RecordedIn the past 12 months, has lack of transportation kept you from medical appointments or from getting medications?No08/13/2025In the past 12 months, has lack of transportation kept you from meetings, work, or from getting things needed for daily living?No08/13/2025HC UtilitiesAnswerDate RecordedIn the past 12 months has the [employer], gas, oil, or water [employer] threatened to shut off services in your home?Patient tskrsqba19/25/2025Postpartum DepressionAnswerDate RecordedPHQ- 9 Total Score (max 27)12007/08/2025Housing StabilityAnswerDate RecordedWhat is your living situation today?I have a steady place to live08/13/2025Education AnswerDate RecordedWhat is the highest level of school you have completed or the highest degree you have received?Some college, no ruhyke3404/24/2019 CommentsNoSex and Gender InformationValueDate RecordedSex Assigned at Xuxcia2012/26/2018 8:37 PM CSTLegal TytCwoyca51/02/2017 2:43 PM CSTGender Identity Wvdehu5312/26/2018 8:37 PM CSTSexual OrientationChoose not to jednnfdb51/17/2021 3:46 PM CDTdocumented as of this encounter Progress Notes * Jennifer Marx R.N. - 10/13/2025 11:20 AM CST PROC IMM Visit 10/13/2025 Pt Type: Post SCT Date of Transplant: 12/10/2024 (Day 307) Visit # 3 Patient arrived for the following vaccination: PCV #3 of 4, Pentacel #3 of 3 Vaccines were administered. Patient had no further questions or concerns. Patient was dismissed from the appointment showing no signs of distress. Next Visit Due on or after: 2 Months or more, from 10/13/2025 Vaccines Ordered: SCT Visit #4 Pended to Provider: Pato Sanchez Patient's Plan for Future Vaccination Visits: Return to [facility] If questions, contact your Hematology team. 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 [address] [place] [phone] 12/04/2025 1:30 PM CSTClinical Communication Virtual Review in [place], [place] 200 [place] [phone] 12/07/2025 8:10 AM CSTLab Department of Laboratory Medicine and Pathology, [facility], in [address] [phone] Jessica Rousseau M.B.B.S. [address] [place] [phone] 12/07/2025 9:15 AM CSTAppointment Outpatient Procedure Center in [place], [place] [address] [place] [address] Jessica Rousseau M.B.B.S. [address] [place] [phone] 12/07/2025 11:00 AM CSTDiagnostic Division of Pulmonary Medicine in [place], [place] [address] [place] [address] Jessica Rousseau M.B.B.S. [address] [place] [phone] 12/07/2025 1:00 PM CSTOffice Visit Pedro sanchez [facility] for Transplantation and Clinical Regeneration in [place], [place] [address] [place] [address] Jessica Rousseau M.B.B.S. [address] [place] [phone] 12/07/2025 1:30 PM CSTNurse Only [facility] [place] for Transplantation and Clinical Regeneration in [place], [place] [address] [place] [address] Jessica Rousseau M.B.B.S. [address] [place] [phone] 12/07/2025 2:00 PM CSTOffice Visit Pedro Nazario [facility] for Transplantation and Clinical Regeneration in [place], [place] [address] [place] [address] Jessica Rousseau M.B.B.S. [address] [place] [phone] 12/07/2025 3:00 PM CSTOffice Visit Department of Palliative Care in [place], [place] [address] [place] [phone] Martine Pardo B.M.B.S., B.M., B.Ch. [address] [place] [address] documented as of this encounter Visit Diagnoses Diagnosis Need Vaccine Immunization- Primary documented in this encounter Additional Health Concerns InfectionOnset DateLast IndicatedResolved TimeProtective Rqlpnpncerr64/14/2023 03/02/2023ssessmentNoted TimePHQ-9 Depression Total Score: 9:42 AM CDTdocumented as of this encounter Care Teams Team MemberRelationshipSpecialtyStart DateEnd Date Renzo Andres M.D. [address] [place] [phone] PCP - GeneralFamily Medicine04/2505/2312/4/25documented as of this encounter
--- OUTSIDE RECORDS SUMMARY | 2025-10-26 14:00 | XMS_ITS | Encounter Summary ---
Author Organization [facility] Address [address] [place] [address] Care Team Providers Care Floor Assembler Name Role Phone Elsewhere, Pcp Primary Care Provider Unavailabl e Reason for Referral * Transplant (Routine) - AuthorizedSpecialtyDiagnoses / ProceduresReferred By ContactReferred To ContactTransplant Diagnoses Transplant Stem Cell (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) Devi Roper APRN, C.N.P., D.N.P. [address] [place] [address] Phone: tel: fax: [facility] Referral IDStatusReasonStart DateExpiration DateVisits RequestedVisits [id number]/8/20256/9/[id number] Scheduling Instructions Please schedule with ANUPAM for 60 minutes. BUFFER * Transplant (Routine) - AuthorizedSpecialtyDiagnoses / ProceduresReferred By ContactReferred To ContactTransplant Diagnoses Transplant Stem Cell (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) Devi Roper APRN C.N.PKatalina, D.N.P. [address] [place] [address] Phone: tel: fax: [facility] Referral IDStatusReasonStart DateExpiration DateVisits RequestedVisits [id number]/8/20256/9/[id number] Scheduling Instructions Please schedule with RNCC for 30 min BUFFER Reason for Visit * Transplant (Routine) - AuthorizedSpecialtyDiagnoses / ProceduresReferred By ContactReferred To ContactTransplant Devi Roper APRN, C.N.P., D.N.P. [address] [place] [address] Phone: tel: fax: [facility] Referral IDStatusReasonStdagmar DateExpiration DateVisits RequestedVisits [id number]/8/20256/9/[id number] Encounter Details DateTypeDepartmentCare Team (Latest Contact Info)Tshscxzzfuh18/08/2025 2:00 PM CSTOffice Visit Pedro sanchez [facility] in [place], [place] [address] [place] [address] Devi Roper APRN, C.N.P., D.N.P. [address] [place] [address] Transplant Stem Cell (HCC) (Primary Dx); Leukemia Myeloid Chronic BCR/ABL Positive Remission (HCC); Nausea And Vomiting Social History Tobacco UseTypesPacks/DayYears UsedDateSmoking Tobacco: NeverSmokeless [...] before you got the money to buymore.Patient xgkmojbn40/25/2025Within the past 12 months, the food you bought just didn't last and you didn't have money to get more.Patient ikvjcyqe59/25/2025PRAPARE - TransportationAnswerDate RecordedIn the past 12 months, has lack of transportation kept you from medical appointments or from getting medications?No08/13/2025In the past 12 months, has lack of transportation kept you from meetings, work, or from getting things needed for daily living?No08/13/2025HC UtilitiesAnswerDate RecordedIn the past 12 months has the [employer], gas, oil, or water company threatened to shut off services in your home?Patient /25/2025Postpartum DepressionAnswerDate RecordedPHQ- 9 Total Score (max 27)12007/08/2025Housing StabilityAnswerDate RecordedWhat is your living situation today?I have a steady place to live08/13/2025Education AnswerDate RecordedWhat is the highest level of school you have completed or the highest degree you have received?Some college, no qiufxv7704/24/2019 CommentsNoSex and Gender InformationValueDate RecordedSex Assigned at Fjixka7212/26/2018 8:37 PM CSTLegal VpgIudrwg74/02/2017 2:43 PM CSTGender Identity Kzidxg9412/26/2018 8:37 PM CSTSexual OrientationChoose not to dfalzjpr05/17/2021 3:46 PM CDTdocumented as of this encounter Last Filed Vital Signs Vital SignReadingTime TakenCommentsBlood Gfqoafhf313/8810/26/2025 1:52 PM HEEL BUFFER Vxshd45347/08/2025 1:52 PM ULNHvxdtdcfwgz10.7 ??C (98.1 ??F)10/26/2025 1:52 PM CSTRespiratory Rate--Oxygen Saturation--Inhaled Oxygen Concentration--Jbgain967 kg (235 lb 9 oz)10/26/2025 1:52 PM CSTHeight--Body Mass Index35.7008/13/2025 10:31 AM CDTdocumented in this encounter Progress Notes * Devi Roper, KARON, C.N.P., D.N.P. - 10/26/2025 2:00 PM CST SUBJECTIVE TRANSPLANT PHYSICIAN Dr. Jessica Rousseau, pager [phone]. CHIEF COMPLAINT Ms. Radha Martinez is a 35 y.o. 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 Currently Day 320 post transplant HISTORY OF PRESENT ILLNESS Please refer to multiple prior notes in EMR for complete hematologic history: Ms. Martinez is a 35 y.o. 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 At the time of diagnosis, there was grade 3 reticulin fibrosis noted. The cytogenetics identified a [place] chromosome in 20 metaphases. The BCR-ABL1 P [...] t(9;22) metaphases. NGS is positive for ASXL1 p.Ygo204Rivcp*12 (20%) and p.Aqt725* (3%). 06/17/2024: feeling quite symptomatic since the [...] placed on 12/03/24 by [facility]. Social Work Seen and cleared [...] Ursodiol 600 mg two times daily. [facility] ID Number: [id number] [...] Biopsies pending as of 08/05/25. INTERVAL HISTORY 10/26/2025 Ms Radha Martinez presents acutely due to acute onset of nausea. She shares that nausea started last Sunday and became more persistent on Sunday, however, she was able to attend her boyfriend's work [employer] constitution party Sunday evening without any issues. Sunday was an okay day but nausea returned on Sunday morning; shares that she had three episodes of nausea with vomiting and did see medication in her emesis. She has been using Zofran with some relief but not great. Denies diarrhea. She shares that she had a temp of 100.5 this morning with chills on/off but has not taken any Tylenol. Endorses a runny nose, watery eyes, and dry throat without any associated cough or shortness of breath. She shares that she continues to have abdominal discomfort that has been worked up extensively without any explicit cause. Continues to report back pain which has been worked up as well. She continues on a Butrans patch and Cymbalta that keep her symptoms reasonably controlled. She is able to utilize non- pharmacologic methods such as heat/ice for pain control as well. She shares that she has been in group therapy three days per week since early Fall 2024 focused on anxiety and panic attacks. She shares that with group therapy, she has not had any panic attacks andfeels her anxiety is well-managed. She is able to utilize therapeutic interventions such as deep breathing, meditation, and keeping busy. She shares that this is a tough time of year for her as she grieves the loss of her father. Denies chest pain, shortness of breath, skin rashes, urinary symptoms, or dizziness/lightheadedness. Remains off of all IMS REVIEW OF SYSTEMS: a 10 point ROS was performed and negative with the exception of notation above Current Medications[1] OBJECTIVE VITAL SIGNS Temperature: [36.7 ??C-36.8 ??C] 36.8 ??C Resp Rate: [16] 16 Blood Pressure: (123-126)/(88-102) 123/102 SpO2: [99 %] 99 % Pulse Rate: [108-114] 114 PHYSICAL EXAM General: alert and oriented. In no acute distress. VSS. Caregiver present. KPS: 80 Skin: no acute rashes or lesions present. No signs of scleroderma Eyes: anicteric ENT: moist oral mucosa. Heart: regular rate and rhythm. S1/S2 present. Lungs: clear to auscultation bilaterally Abd: soft, nontender, nondistended. Bowel sounds present. Extremities: no cyanosis, pallor, or edema present. DIAGNOSTIC FINDINGS Recent Results (from the past 24 hours) Albumin Collection Time: 10/26/25 1:40 PM Result Value Albumin, S 4.5 Alkaline Phosphatase Collection Time: 10/26/25 1:40 PM Result Value Alkaline Phosphatase, S 101 ALT (Alanine Aminotransferase) Collection Time: 10/26/25 1:40 PM Result Value Alanine Aminotransferase (ALT), S 61 (H) AST (Aspartate Aminotransferase) Collection Time: 10/26/25 1:40 PM Result Value Aspartate Aminotransferase (AST), P 46 (H) Bilirubin, Total Collection Time: 10/26/25 1:40 PM Result Value Bilirubin, Total, P 0.3 BUN (Blood Urea Nitrogen) Collection Time: 10/26/25 1:40 PM Result Value BUN (Blood Urea Nitrogen), S 8 Calcium, Total Collection Time: 10/26/25 1:40 PM Result Value Calcium, Total, S 9.6 CBC no call back, reflex T/S HGB <8 Collection Time: 10/26/25 1:40 PM Result Value Hemoglobin 12.6 Hematocrit 38.5 Erythrocytes 4.57 MCV 84.2 RBC Distrib Width 13.3 Platelet Count 237 Leukocytes 4.1 Neutrophils 2.57 Lymphocytes 0.89 (L) Monocytes 0.24 (L) Eosinophils 0.30 Basophils 0.05 Creatinine with Estimated GFR Collection Time: 10/26/25 1:40 PM Result Value Creatinine 0.70 Estimated GFR (eGFR) >90 Glucose, Fasting Collection Time: 10/26/25 1:40 PM Result Value Glucose, P 155 (H) Last Intake 2 Magnesium Collection Time: 10/26/25 1:40 PM Result Value Magnesium, S 2.1 Potassium Collection Time: 10/26/25 1:40 PM Result Value Potassium, S 3.8 Sodium Collection Time: 10/26/25 1:40 PM Result Value Sodium, S 140 LD (Lactate Dehydrogenase) Collection Time: 10/26/25 1:40 PM Result Value [facility] LD 178 ASSESSMENT / PLAN 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 Chimerism on the bone marrow showed 100% donor. BCR/ABL p210 was negative - Most recent sort chimerism from Aug 13, 2025 showed 90% donor DNA in the CD3 fraction and 100% donor DNA in the CD33 fraction - Most recent BCR/ABL p210 from Aug 13, 2025 was negative - CBC as per above. 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 - Tacrolimus discontinued 04/17/2025. 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) CURRENT SCORE 10/26/2025 KPS Score 1 (Restricted in strenous activity only, ECOG 1, KPS 80-90%) Skin Score 0 (No symptoms/minimal distinct signs) Mouth Score 0 (No symptoms/minimal distinct signs) Eyes Score 0 (No symptoms/Minimal distinct signs) GI Score 0 (No symptoms/Minimal distinct signs) Liver Score 0 (Normal LFTS) Lung Score 0 (No symptoms) Genital Score 0 (No symptoms/Minimal distinct signs) Joint Score 0 (No symptoms/Minimal distinct signs) Global Score 0 (No cGVHD) Change from previous evaluation: NA # Nausea # Vomiting - Less likely related to GVHD given onset of symptoms and fever; could be related to GI illness (note: patient had gastroenteritis in September 2025). Patient for got to change the buprenorphine patch, discussed with Palliative Care that this is less likely causing her symptoms. - Has been using Zofran and Compazine as needed with minor benefit - Will give a liter of NS, 1mg IV Kytril, and Toradol 15mg IV. No plans for admission at this time. - Patient aware that IV/PO narcotics will not be utilized. Discussed that chronic pain was assessedbut encouraged her to follow up with Palliative Medicine (video visit scheduled for 10/30/2025) - Will send an Rx for PO Kytril. Discussed that this would be used in place of Zofran. # Diffuse radicular pain # Diffuse Abdominal Pain - Patient has had an extensive work up for abdominal pain including EGD/Flex Sig, numerous CT scans, and blood work to no avail. Treatment course has included Budesonide, Dilaudid, Levsin, Buprenorphine patch, Cymbalta - Followed by Palliative Medicine who renews the buprenorphine patch - Continues on buprenorphine patch weekly and Cymbalta 120mg daily - Plan for video follow up with Palliative Medicine on 10/30/2025 # Antimicrobial Prophylaxis - Continues on Acyclovir, Penicillin VK, Bactrim, and Posaconazole. - It should be noted she received two doses of Shingrix already. # Transaminitis - AST/AT mildly elevated. Monitor for now # Insomnia - Continues on Melatonin 5 mg qHS and discussed she may take another 5 mg at night if she wakes up to try and help with sleep. # Peripheral neuropathy - Continues on buprenorphine patch 5 mcg and Cymbalta 120mg daily - Follows with Palliative Medicine for pain management # Vitamin D Deficiency - Continues on Vitamin D supplement 2000 units daily. # Generalized Anxiety Disorder # Major Depressive Disorder, recurrent episode, moderate - At present, continues with group therapy three days weekly (-) focused on anxiety and panic attacks - Continues on aripiprazole 10mg daily and duloxetine 120mg daily - Hydroxyzine available for breakthrough anxiety; has not needed # Right eye strabismus # Potential left retina tear, stable - Right eye strabismus present since . Has only peripheral vision in right eye. Wears glasses. - Followed by [facility] in [place], [place]. # Transplant Survivorship - Please refer to the Care Coordination note for details. - Has received three sets of post transplant vaccines; will need fourth set with BMT return in Nov 2025 - Has not received annual influenza vaccine # Disposition - Will plan to see patient back in one week, 11/02/2025, for labs and follow up. Palliative Medicine appt scheduled for 10/30/2025, video visit. Based on labs from 11/02/2025, can guide if blood workneeds to be done between 11/02/2025 visit and Nov [address] Rousseau. [1] No current facility-administered medications for this visit. Facility-Administered Medications Ordered in Other Visits Medication Dose Frequency Last Rate Last Admin NaCl 0.9 % bolus 1,000 mL 1,000 mL Once 500 mL/hr at 10/26/25 1505 1,000 mL at 10/26/25 1505 BUFFER BUFFER BUFFER documented in this encounter Plan of Treatment DateTypeDepartmentCare Team (Latest Contact Info)Wqufoyibsbw06/29/2025 9:00 AM CSTOffice Visit Department of Obstetrics and Gynecology in [place], [place] [address] [place] [phone] Alice Linares M.D. [address] [place] [phone] 12/04/2025 1:30 PM CSTClinical Communication Virtual Review in [place], [place] [address] [place] [address] 12/07/2025 8:10 AM CSTLab Department of Laboratory Medicine and Pathology, [facility], in [place], [place] [address] [place] [phone] Jessica Rousseau M.B.B.S. [address] [place] [phone] 12/07/2025 9:15 AM CSTAppointment Outpatient Procedure Center in [place], [place] [address] [place] [phone] Jessica Rousseau M.B.B.S. [address] [place] [phone] 12/07/2025 11:00 AM CSTDiagnostic Division of Pulmonary Medicine in [place], [place] [address] [place] [phone] Jessica Rousseau M.B.B.S. [address] [place] [phone] 12/07/2025 1:00 PM CSTOffice Visit [facility] [place], [place] [address] [place] [phone] Jessica Rousseau M.B.B.S. [address] [place] [phone] 12/07/2025 1:30 PM CSTNurse Only [facility] Transplantation and Clinical Regeneration in [place], [place] [address] [place] [phone] Jessica Rousseau M.B.B.S. [address] [place] [phone] 12/07/2025 2:00 PM CSTOffice Visit [facility] Transplantation [facility] Clinical Regeneration in [place], [place] [address] [place] [phone] Jessica Rousseau M.B.B.S. [address] [place] [phone] 12/07/2025 3:00 PM CSTOffice Visit Department of Palliative Care in [place], [place] [address] [place] [phone] Martine Pardo B.M.B.S., B.M., B.Ch. [address] [place] [phone] NameTypePriorityAssociated DiagnosesDate/TimeChimerism Transplant Sorted Cells LabRoutine Transplant Stem Cell (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) 10/30/2025 7:55 AM CSTBCR/ABL1, p210, mRNA Detection, Reverse Senior Operator-PCR (RT-PCR), Quantitative, Monitoring Chronic Myeloid Leukemia (CML)LabRoutine Transplant Stem Cell (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) 10/30/2025 7:55 AM CSTNameTypePriorityAssociated DiagnosesOrder Schedule Chimerism Transplant Sorted CellsLabRoutine Transplant Stem Cell (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) Expected: 11/02/2025, Expires: 7BCR/ABL1, p210, mRNA Detection, Reverse Senior Operator-PCR (RT-PCR), Quantitative, Monitoring Chronic Myeloid Leukemia (CML)LabRoutine Transplant Stem Cell (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) Expected: 11/02/2025, Expires: 01/24/2027NameTypePriorityAssociated Diagnoses Order ScheduleTransplant Bone marrow office visit (clinic)Outpatient Referral Routine Transplant Stem Cell (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) Expected: 11/02/2025 (Approximate), Expires: 01/24/2027Transplant Bone marrow office visit (clinic)Outpatient ReferralRoutine Transplant Stem Cell (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) Expected: 11/02/2025 (Approximate), Expires: 01/24/2027documented as of this encounter Results * CMV DNA Detect / Quant, Plasma (10/30/2025 7:55 AM HEEL BUFFER)ComponentValueRef Range Test MethodAnalysis TimePerformed AtPathologist SignatureCMV DNA Detect/Quant, PUndetectedUndetected IU/mL10/30/2025 11:09 PM CSTSDSCComment: Result in log IU/mL is Undetected. ----ADDITIONAL INFORMATION---- The quantification range of this assay is 35 to 10,000,000 IU/mL (1.54 log to 7.00 log IU/mL). Testing was performed using the lucrecia CMV test ([employer] Specimen (Source)Anatomical Location / LateralityCollection Method / Volume Collection TimeReceived TimeBlood (Blood, Venous)10/30/2025 7:55 AM HEEL BUFFER 10/30/2025 10:07 AM HEEL BUFFER Narrative Authorizing ProviderResult TypeResult StatusKimbermary Roper APRN, C.N.P., D.N.P.LAB MICROBIOLOGY - BLOOD ORDERABLESFinal ResultPerforming Organization AddressCity/State/ZIP CodePhone Number [facility] [address] [place] [address] [facility] [address] [place] [address] [place] [address] * LD (Lactate Dehydrogenase) (10/30/2025 7:55 AM HEEL BUFFER)ComponentValueRef RangeTest MethodAnalysis TimePerformed AtPathologist SignatureHospital Deanna [id number] - 222 U/L112/31/2024 9:11 AM CSTDTLSpecimen (Source)Anatomical Location / LateralityCollection Method / VolumeCollection TimeReceived TimeBlood (Blood, Venous)10/30/2025 7:55 AM CST10/30/2025 8:42 AM HEEL BUFFER Narrative Authorizing ProviderResult TypeResult StatusKimbermary Roper APRN, C.N.P., D.N.P.LAB BLOOD NON ADD-ONFinal ResultPerforming OrganizationAddress City/State/ZIP CodePhone Number [facility] [address] [place] [address], [facility] [address] [place] [address] documented in this encounter Visit Diagnoses Diagnosis Transplant Stem Cell (HCC)- Primary Leukemia Myeloid Chronic BCR/ABL Positive Remission (HCC) Nausea And Vomiting documented in this encounter Additional Health Concerns InfectionOnset DateLast IndicatedResolved TimeProtective Ezqymisckat97/14/2023 03/02/2023ssessmentNoted TimePHQ-9 Depression Total Score: 12007/08/2025 9:42 AM CDTdocumented as of this encounter Care Teams Team MemberRelationshipSpecialtyStart DateEnd Date Elsewhere, Pcp PCP - GeneralInternal Ckvfjuio83/5/25documented as of this encounter
--- OUTSIDE RECORDS SUMMARY | 2025-10-26 14:40 | XMS_ITS | Encounter Summary ---
Author Organization [facility] Address [address] [place] [address] Care Team Providers Care Nailing Machine Feeder Name Role Phone Elsewhere, Pcp Primary Care Provider Unavailabl e Reason for Referral * SpecialtyDiagnoses / ProceduresReferred By ContactReferred To Contact [facility] [address] [place] [address] Phone: tel: [facility] Referral IDStatusReasonStart DateExpiration DateVisits RequestedVisits Authorized ICATION MANAGER Reason for Visit * Episode Based Medications (Routine) - AuthorizedSpecialtyDiagnoses / ProceduresReferred By ContactReferred To Contact Diagnoses 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 [address] [place] [address] Phone: tel: fax: [facility] in [place], [place] [address] [place] [address] Phone: tel: fax: Referral IDStatusReasonStart DateExpiration DateVisits RequestedVisits [id number] Encounter Details DateTypeDepartmentCare Team (Latest Contact Info)Ceqplwtafeb00/08/2025 2:40 PM APPLICATION MANAGER - 10/26/2025 6:09 PM CSTHospital Encounter [facility], Ninth Floor [address] [place] [address] Devi Roper APRN, C.N.P., D.N.P. [address] [place] [address] Leukemia Myeloid Chronic BCR/ABL Positive [...] before you got the money to buymore.Patient /25/2025Within the past 12 months, the food you bought just didn't last and you didn't have money to get more.Patient ucfkezem87/25/2025PRAPARE - TransportationAnswerDate RecordedIn the past 12 months, has lack of transportation kept you from medical appointments or from getting medications?No08/13/2025In the past 12 months, has lack of transportation kept you from meetings, work, or from getting things needed for daily living?No08/13/2025HC UtilitiesAnswerDate RecordedIn the past 12 months has the [place], gas, oil, or water [employer] threatened to shut off services in your home?Patient donrugjp40/25/2025Postpartum DepressionAnswerDate RecordedPHQ- 9 Total Score (max 27)12007/08/2025Housing StabilityAnswerDate RecordedWhat is your living situation today?I have a steady place to live08/13/2025Education AnswerDate RecordedWhat is the highest level of school you have completed or the highest degree you have received?Some college, no iypwar3404/24/2019 CommentsNoSex and Gender InformationValueDate RecordedSex Assigned at Zaqdgt5212/26/2018 8:37 PM CSTLegal IdcUdevuk16/02/2017 2:43 PM CSTGender Identity Euekyp3412/26/2018 8:37 PM CSTSexual OrientationChoose not to vwftsikw49/17/2021 3:46 PM CDTdocumented as of this encounter Last Filed Vital Signs Vital SignReadingTime TakenCommentsBlood Vjicefgd586/3504010/26/2025 2:53 PM APPLICATION MANAGER Kuzlc04116/08/2025 2:53 PM OAZGykjfoetqqu15.8 ??C (98.2 ??F)10/26/2025 4:17 PM CSTstill nchillsRespiratory Fuwx077012/27/2024 2:53 PM CSTOxygen Koydkgkifn22% 10/26/2025 2:53 PM CSTInhaled Oxygen Concentration--Dcqkwd258 kg (235 lb 7.2 oz) 10/26/2025 2:53 [...] needed for nausea or vomiting. 20 tablet 212/08/152294/10/2025 hydrOXYzine (Atarax) 25 mg tablet Indications:AnxietyTake 1-2 [...] no or minimal response. 2 each /10/2025 ondansetron ODT (Zofran-ODT) 4 mg disintegrating tablet Dissolve 1-2 tablets (4-8 mg total) in the mouth every 8 (eight) hours as needed for nausea or vomiting. 20 tablet prochlorperazine (Compazine) 10 mg tablet Take 1 tablet (10 mg total) by mouth every 6 (six) hours as needed for nausea. 30 tablet documented as of this encounter Plan of Treatment DateTypeDepartmentCare Team (Latest Contact Info)Xgwqrsuozkt85/29/2025 9:00 AM CSTOffice Visit Department of Obstetrics and Gynecology in [address] [phone] Alice Linares M.D. [address] [place] [phone] 12/04/2025 1:30 PM CSTClinical Communication Virtual Review in [place], [place] [address] [place] [address] 12/07/2025 8:10 AM CSTLab Department of Laboratory Medicine and Pathology, [facility], in [place], [place] [address] [place] [phone] Jessica Rousseau M.B.B.S. [address] [place] [phone] 12/07/2025 9:15 AM CSTAppointment Outpatient Procedure Center in [place], [place] [address] [place] [address] Jessica Rousseau M.B.B.S. [address] [place] [phone] 12/07/2025 11:00 AM CSTDiagnostic Division of Pulmonary Medicine in [place], [place] [address] [place] [phone] Jessica Rousseau M.B.B.S. [address] [place] [phone] 12/07/2025 1:00 PM CSTOffice Visit Pedro sanchez [facility] in [place], [place] [address] [place] [address] Jessica Rousseau M.B.B.S. [address] [place] [phone] 12/07/2025 1:30 PM CSTNurse Only [facility] in [place], [place] [address] [place] [phone] Jessica Rousseau M.B.B.S. [address] [place] [phone] 12/07/2025 2:00 PM CSTOffice Visit [facility] in [place], [place] [address] [place] [address] Jessica Rousseau M.B.B.S. [address] [place] [phone] 12/07/2025 3:00 PM CSTOffice Visit Department of Palliative Care in [place], [place] [address] [place] [address] Martine Pardo B.M.B.S., BKatalinaM., B.. 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
--- OUTSIDE RECORDS SUMMARY | 2025-10-29 14:15 | XMS_ITS | Encounter Summary ---
Author Organization [facility] Address [address] [place] [id number] Care Team Providers Care Wound Care Technician Name Role Phone Elsewhere, Pcp Primary Care Provider Unavailabl e Reason for Referral * Outpatient (Routine) - AuthorizedSpecialtyDiagnoses / ProceduresReferred By ContactReferred To ContactGynecology Diagnoses Adenomyosis Vandana Guerra M.D., M.S. [address] [place] [phone] Phone: tel: fax: [facility] Referral IDStatusReasonStart DateExpiration DateVisits RequestedVisits [id number]/12/20256/13/202711 CTOR OF MEDIA Reason for Visit * ReasonCommentsAbdominal PainBack Pain Encounter Details DateTypeDepartmentCare Team (Latest Contact Info)Vwshzumkkjy36/11/2025 2:15 PM DIRECTOR OF MEDIA - 10/30/2025 2:51 AM CSTEmergency [facility] [address] [place] [phone] Sean Beard M.D. 200 [place] [phone] Humza Person M.D., M.B.A. 200 [place] [phone] Lower Abdominal Pain Unspecified (Primary Dx); Pain Back; Pyuria; Adenomyosis Discharge Disposition: Home or Self Care Social [...] before you got the money to buymore.Patient ildpwbvk27/25/2025Within the past 12 months, the food you bought just didn't last and you didn't have money to get more.Patient okilimeb90/25/2025PRAPARE - TransportationAnswerDate RecordedIn the past 12 months, has lack of transportation kept you from medical appointments or from getting medications?No08/13/2025In the past 12 months, has lack of transportation kept you from meetings, work, or from getting things needed for daily living?No09/25/2025AHC UtilitiesAnswerDate RecordedIn the past 12 months has the electric, gas, oil, or water company threatened to shut off services in your home?Patient qnurqjre53/25/2025Postpartum DepressionAnswerDate RecordedPHQ- 9 Total Score (max 27)12007/08/2025Housing StabilityAnswerDate RecordedWhat is your living situation today?I have a steady place to live08/13/2025Education AnswerDate RecordedWhat is the highest level of school you have completed or the highest degree you have received?Some college, no nimxvc9504/24/2019 CommentsNoSex and Gender InformationValueDate RecordedSex Assigned at Tscuiy9612/26/2018 8:37 PM CSTLegal JyzOntdwl19/02/2017 2:43 PM CSTGender Identity Flkqzb2912/26/2018 8:37 PM CSTSexual OrientationChoose not to logphrxj48/17/2021 3:46 PM CDTdocumented as of this encounter Last Filed Vital Signs Vital SignReadingTime TakenCommentsBlood Rxnkzgpf682/9310/30/2025 2:30 AM DIRECTOR OF MEDIA Rslmb208910/30/2025 2:30 AM LJARnmkoyyyljk45.9 ??C (98.4 ??F)10/29/2025 9:48 PM CSTRespiratory Ccdb018012/31/2024 2:30 AM CSTOxygen Zagvrufgem29%10/30/2025 2:30 AM CSTInhaled Oxygen Concentration--Wvsbiy481 kg (235 lb 14.3 oz)10/29/2025 2:18 PM CSTHeight--Body Mass Index35.75008/13/2025 10:31 AM CDTdocumented in this encounter Discharge Instructions * Discharge Instructions* Vandana Guerra M.D., M.S. - 10/30/2025 12:24 AM DIRECTOR OF MEDIA You can use Dilaudid for your pain management and Reglan for nausea management.Please return to theEmergency Department if you have any new or concerning symptoms including worsening abdominal pain or blood in your vomit or bowel movements. Please return if you notice any new or worsening pelvic pain. Please follow up with BMT and gynecology as scheduled. We also recommend you follow up with your PCP following completion of your antibiotics to confirm resolution of your urinary infection. 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 180 tablet buprenorphine (Butrans) 5 mcg/hour Indications:Chronic Pain/Nonacute PainPlace 1 patch on the skin once a week Indication: Chronic Pain/Nonacute Pain. 4 patch 10/12/2025 cefdinir (Omnicef) 300 mg capsule Indications:PyuriaTake 1 capsule (300 mg total) by mouth 2 (two) times a day before morning and evening meals for 7 days. 14 capsule cholecalciferol (Vitamin D3) 50 mcg (2,000 Unit) tablet Take 50 mcg by mouth daily. 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 120 capsule HYDROmorphone (Dilaudid) 2 mg tablet Indications:Acute PainTake 1 tablet (2 mg total) by mouth every 3 (three) hours as needed for pain for up to 2 days Indication: Acute Pain. 12 tablet melatonin 5 mg tablet Take 5-10 mg by mouth at bedtime. metoclopramide (Reglan) 10 mg tablet Take 1 tablet (10 mg total) by mouth 4 (four) times a day before meals and bedtime. 40 tablet penicillin V potassium (Veetids) 500 mg tablet [...] 1 tablet by mouth daily. 60 tablet naloxone (Narcan) 4 mg/actuation nasal spray Waka one device into nostril upon signs of opioid overdose. Call 911. Repeat with second device inthe other nostril if no response within 2-3 minutes. Use 1 spray in 1 nostril. Repeat with second device in other nostril after 2-3 minutes if no or minimal response. 2 each documented as of this encounter ED Notes * Sean Beard M.D. - 10/30/2025 12:11 AM CST I saw the patient with the medical student. I was present for or re-performed the History of Present Illness. I personally performed a Physical Exam and Medical Decision Making. I reviewed medical student documentation and agree or amended. 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 She notes associated nausea and vomiting for 3 days as well as a fever to 101 earlier today. She notes no dysuria or increased urinary frequency, hematuria, diarrhea, constipation, or vaginal discharge. No recent travel history or sick contacts. She did present to the BMT clinic earlier this week with the symptoms and was treated with IV fluids. She does have follow up appointment with BMT in the morning. BP 138/90 Pulse 74 Temp 36.9 ??C (Oral) Resp 16 Wt 107 kg SpO2 96% BMI 35.75 kg/m?? Awake and alert in no respiratory distress. No gross evidence of trauma. No oropharyngeal erythema or exudate. No cervical adenopathy. No thyromegaly. Mild tenderness to palpation of left lower quadrant and left mid quadrant without peritoneal signs. No CVA tenderness. No midline cervical/thoracic/lumbar spine tenderness or deformity. Abdomen is nondistended with normal bowel sounds. No murmur, rub, or gallop. No wheezing, rhonchi, rales, or asymmetry. GCS is 15 without focal motor sensory deficit Assessment and Plan 1. Left flank pain with left lower quadrant pain. DIFFERENTIAL DIAGNOSES Differential diagnosis of left flank pain includes kidney stone with renal colic versus pyelonephritis versus musculoskeletal versus endometriosis versus pancreatitis versus biliary colic or muscle strain. Differential diagnosis of left lower quadrant pain includes ovarian torsion versus UTI versus renalcolic versus diverticulitis versus . PROBLEMS ADDRESSED THIS VISIT HCG to assess for . CBC to assess for leukocytosis, leukopenia, anemia, or thrombocytopenia. BMP to assess for acute electrolyte disorder or renal dysfunction. LFTs to assess for acute hepatopathy or obstructive biliary pattern. Lipase to assess for acute pancreatitis. Lactate to assess for lactic acidosis in setting of potential sepsis. Urinalysis to assess for urinary tract infection with pyuria or evidence of kidney stone with hematuria. CT abdomen to assess for diverticulitis, kidney stone, left lower quadrant mass, constipation, splenomegaly, or other etiology for left lower quadrant and left flank pain. Pelvic ultrasound to assess for ovarian cyst or ovarian torsion. Droperidol antiemetic with control of nausea in the emergency department. Fentanyl analgesia with planned discharge with oxycodone if pain improved with fentanyl in the emergency department based on prior tolerance of oxycodone. Nitrofurantoin for pyuria in setting of left flank pain and possible UTI with urine culture pending. I reviewed the following external records: office records, inpatient records and prior outpatient labs. ED Course as of 10/30/25 0903 [facility] Oct 29, 2025 2300 Compared with EKG of July 06, 2025 heart rate has increased from normal sinus rhythm rate of73 to 75 normal sinus rhythm, QTC interval has increased from 418 to 437, no STEMI Final Diagnoses: as of 10/30/25 09 Lower Abdominal Pain Unspecified Pain Back Pyuria Adenomyosis The following tests were considered but ultimately not performed: No additional testing considered after reviewing CT imaging and ultrasound. Escalation of care, including admission/observation, considered: Decision to discharge home with outpatient follow up the next day and pain improved with opiate analgesia with unremarkable labs and imaging. My ECG interpretation is documented in ED Course. My CT Scan interpretation includes the following comments: Per my interpretation no ovarian cyst, pelvic mass, diverticulitis, kidney stone, or other explanation for left flank pain. My Ultrasound interpretation includes the following comments: Per my interpretation no ovarian torsion. I discussed the following radiographic interpretations with the radiologist: Reviewed radiology interpretation of CT abdomen and pelvic ultrasound. Sean Beard M.D. 10/30/25 0904 CTOR OF MEDIA * Sean Beard M.D. - 10/29/2025 10:19 PM CST SUBJECTIVE CHIEF COMPLAINT/REASON FOR VISIT Abdominal Pain and Back Pain HISTORY OF PRESENT ILLNESS Radha Martinez is a 35 yo female with a PMH relevant for leukemia s/p BMT in November 2024 who presents to the ED for LLQ and lower back pain since of last week. She currently rates the painas 5-6/10. She had nausea since the onset of her pain. She had chills and a fever to 101 degrees this past Sunday. She also had several episodes of vomiting with the last one being this morning at 11am. She has tried Tylenol and Zofran at home but has not had any alleviation of her symptoms. In the ED she also received Ibuprofen and had not symptoms relief. She denies any chest pain, shortness of breath, or urinary symptoms. History provided by: Patient REVIEW OF SYSTEMS OBJECTIVE Initial Vitals Temperature 10/29/25 1422 36.7 ??C Pulse Rate 10/29/25 1422 106 Heart Rate 10/29/25 2150 88 Resp Rate 10/29/25 1422 20 Blood Pressure 10/29/25 1422 (!) 132/100 SpO2 10/29/25 1422 98 % Pain Score 10/29/25 1726 5 - Moderate pain PHYSICAL EXAMINATION Cardiovascular: Regular rhythm and normal heart sounds. Pulmonary/Chest: Effort normal and breath sounds normal. Abdominal: Soft. Bowel sounds are increased. There is abdominal tenderness. There is guarding. There is no rebound, no CVA tenderness, no tenderness at McBurney's point, negative Downing's sign and noRovsing's sign. Tenderness to palpation in LLQ Musculoskeletal: General: Tenderness present. Comments: Tenderness bilaterally in the lower back. Neurological: Alert and oriented to person, place, and time. Skin: Skin is warm. Psychiatric: She has a normal mood and affect. ASSESSMENT/PLAN Assessment and Plan Radha Martinez is a 35 yo female with PMH relevant for leukemia s/p BMT in November 2024 who presents to the ED for LLQ and lower back pain. Differential for her includes but is not limited to UTI, viral gastroenteritis, bowel obstruction, diverticulitis, appendicitis, ovarian torsion, and ectopic p regnancy. Serum hCG was negative. CT abdomen pelvis was reassuring for no bowel obstruction, appendicitis, diverticulitis, or hydronephrosis. UA was positive for bacteria which increased suspicion for a UTI soshe was treated with nitrofurantoin while in the ED. She was given 50 mcg of fentanyl and 2mg Dilaud id which improved her pain to 4/10. She also had 0.625 mg of droperidol which relieved her nausea. Pelvic US was pending at the time of sign out to the incoming team. Should her US show any gynecologic causes for her LLQ, the ObGyn service should be consulted. Should her US not show any gynecologiccauses for her LLQ pain, it is recommended she be discharged based on the improvement of her nauseaand pain. She would be discharged with a prescription for hydromorphone for her pain, nitrofurantoin for her urinary infection and Reglan for her nausea. We recommend that she follow up with BMT during her scheduled appointment and also follow up with her PCP upon completion of her antibiotics to evaluate for symptom resolution. The patient was seen and discussed with the attending physician, Dr. Sean Beard, who is in agreement with the plan. . ED Course as of 10/30/25904 [facility] Oct 29, 2025 2300 Compared with EKG of July 06, 2025 heart rate has increased from normal sinus rhythm rate of73 to 75 normal sinus rhythm, QTC interval has increased from 418 to 437, no STEMI Final Diagnoses: as of 10/30/25904 Lower Abdominal Pain Unspecified Pain Back Pyuria Adenomyosis Amanda Bernal A 10/30/25 011 Sean Beard M.D. 10/30/25 0905 CTOR OF MEDIA CTOR OF MEDIA CTOR OF MEDIA * Racquel Oakley R.N. - 10/29/2025 2:28 PM CST Presents with LLQ abd pain, lower back pain, nausea and a headache since . Denies fevers, chills, vomiting, diarrhea. 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 Racquel Oakley R.N. 10/29/25 1429 CTOR OF MEDIA documented in this encounter Plan of Treatment DateTypeDepartmentCare Team (Latest Contact Info)Zhqeaiadgyf91/29/2025 9:00 AM CSTOffice Visit Department of Obstetrics and Gynecology in [place], [place] [address] [place] [phone] Alice Linares M.D. [address] [place] [phone] 12/04/2025 1:30 PM CSTClinical Communication Virtual Review in [place], [place] 200 [place] [address] 12/07/2025 8:10 AM CSTLab Department of Laboratory Medicine and Pathology, [facility], in [place], [place] [address] [place] [phone] Jessica Rousseau M.B.B.S. [address] [place] [phone] 12/07/2025 9:15 AM CSTAppointment Outpatient Procedure Center in [place], [place] [address] [place] [phone] Jessica Rousseau M.B.B.S. [address] [place] [address] 12/07/2025 11:00 AM CSTDiagnostic Division of Pulmonary Medicine in [place], [place] [address] [place] [address] Jessica Rousseau M.B.B.S. [address] [place] [phone] 12/07/2025 1:00 PM CSTOffice Visit [facility] in [place], [place] [address] [place] [address] Jessica Rousseau M.B.B.S. [address] [place] [phone] 12/07/2025 1:30 PM CSTNurse Only [facility] in [place], [place] [address] [place] [address] Jessica Rousseau M.B.B.S. [address] [place] [phone] 12/07/2025 2:00 PM CSTOffice Visit [facility] in [place], [place] [address] [place] [address] Jessica Rousseau M.B.B.S. [address] [place] [phone] 12/07/2025 3:00 PM CSTOffice Visit Department of Palliative Care in [place], [place] [address] [place] [address] Martine Pardo B.M.B.S., B.M., B.Ch. [address] [place] [address] NameTypePriorityAssociated DiagnosesOrder SchedulePOST ED VISIT Gynecology Outpatient ReferralRoutine Adenomyosis Expected: 10/30/2025, Expires: 01/28/2027documented as of this encounter Procedures Procedure NamePriorityDate/TimeAssociated DiagnosisCommentsUS PELVIS TRANSVAGINAL AND TRANSABDOMINALRAD - Semiurgent (Fast; most ED patients; some inpatients)10/30/2025 12:25 AM DIRECTOR OF MEDIA UXTYFLZ5010/29/2025 10:41 PM DIRECTOR OF MEDIA LACTATE, B/AEuosb6710/29/2025 8:[address] ABDOMEN PELVIS WITH IV CONTRASTRAD - Semiurgent (Fast; most ED patients; some inpatients)10/29/2025 3:56 PM DIRECTOR OF MEDIA DIPSTICK, USTAT112/30/2024 2:49 PM DIRECTOR OF MEDIA MICROSCOPIC IEMCGOGRWI17/11/2025 2:49 PM DIRECTOR OF MEDIA BACTERIAL CULTURE, AEROBIC + SUSC, WIPTZJMTR25/11/2025 2:49 PM DIRECTOR OF MEDIA PH, USTAT112/30/2024 2:49 PM DIRECTOR OF MEDIA OSMOLALITY, USTAT112/30/2024 2:49 PM DIRECTOR OF MEDIA URINALYSIS WITH SYVSIQQSXOEGAJF52/11/2025 2:49 PM DIRECTOR OF MEDIA LACTATE FOR SEPSIS WITH UKWJOHOKES28/11/2025 2:41 PM DIRECTOR OF MEDIA HEPATIC FUNCTION PANEL, SSTAT112/30/2024 2:41 PM DIRECTOR OF MEDIA CBC WITH DIFFERENTIAL, BSTAT112/30/2024 2:41 PM DIRECTOR OF MEDIA HUMAN CHORIONIC GONADOTROPIN (HCG), JAGRUTI,STAT112/30/2024 2:41 PM DIRECTOR OF MEDIA LIPASE, S/PSTAT112/30/2024 2:41 PM DIRECTOR OF MEDIA BASIC METABOLIC PANEL, S/PSTAT112/30/2024 2:41 PM DIRECTOR OF MEDIA documented in this encounter Results * US Pelvis Transvaginal and Transabdominal (10/30/2025 12:25 AM DIRECTOR OF MEDIA)Anatomical RegionLateralityModalityPelvis, Ultrasound RST LOS, Ultrasound ARZ LOS, Ultrasound FLA LOSN/AUltrasoundSpecimen (Source)Anatomical Location / LateralityCollection Method / VolumeCollection TimeReceived Time Impressions 10/30/2025 7:30 AM DIRECTOR OF MEDIA 1. Heterogeneous appearance of the myometrium, which can be seen with uterine adenomyosis. 2. ??Normal sonographic appearance of the bilateral ovaries with patent arterial vasculature. The ovarian veins were not visualized bilaterally. No definite evidence of ovarian torsion. Narrative 10/30/2025 7:30 AM DIRECTOR OF MEDIA EXAM: US PELVIS TRANSVAGINAL AND TRANSABDOMINAL Exam performed with color and spectral Doppler analysis. COMPARISON: CT abdomen pelvis 10/29/2025, pelvic ultrasound 06/25/2025 TECHNIQUE: Transabdominal and transvaginal. Transvaginal exam performed to better visualize the uterus and/or adnexal regions. FINDINGS: Uterus: 3.5 x 4.6 x 7.4 cm. Nabothian cysts. Myometrium: Again demonstrated is heterogeneous appearance of the myometrium. Endometrium: Normal. Thickness: 2 mm. Right ovary: Normal. ??Ovarian volume: 2 ml. Right ovary Doppler: Arterial flow evaluated via Doppler evaluation, including color flow with spectral waveform. ? Arterial flow: Seen ? Venous flow: Not well visualized. Left ovary: Normal. ??Ovarian volume: 2 ml. Left ovary Doppler: Arterial flow evaluated via Doppler evaluation, including color flow with spectral waveform. ? Arterial flow: Seen ? Venous flow: Not well visualized. Intraperitoneal Fluid: None. Procedure Note Emerson Leiva M.D. - 10/30/2025 EXAM: US PELVIS TRANSVAGINAL AND TRANSABDOMINAL Exam performed with color and spectral Doppler analysis. COMPARISON: CT abdomen pelvis 10/29/2025, pelvic ultrasound 06/25/2025 TECHNIQUE: Transabdominal and transvaginal. Transvaginal exam performed tobetter visualize the uterus and/or adnexal regions. FINDINGS: Uterus: 3.5 x 4.6 x 7.4 cm. Nabothian cysts. Myometrium: Again demonstrated is heterogeneous appearance of themyometrium. Endometrium: Normal. Thickness: 2 mm. Right ovary: Normal. Ovarian volume: 2 ml. Right ovary Doppler: Arterial flow evaluated via Doppler evaluation,including color flow with spectral waveform. Arterial flow: Seen Venous flow: Not well visualized. Left ovary: Normal. Ovarian volume: 2 ml. Left ovary Doppler: Arterial flow evaluated via Doppler evaluation,including color flow with spectral waveform. Arterial flow: Seen Venous flow: Not well visualized. Intraperitoneal Fluid: None. IMPRESSION: 1. Heterogeneous appearance of the myometrium, which can be seen withuterine adenomyosis. 2. Normal sonographic appearance of the bilateral ovaries with patentarterial vasculature. The ovarian veins were not visualized bilaterally.No definite evidence of ovarian torsion. Authorizing ProviderResult TypeResult StatusChristopher Linsey Beard M.D.[facility] US PROCEDURESFinal Result * ECG 12 Lead (10/29/2025 10:41 PM DIRECTOR OF MEDIA)ComponentValueRef RangeTest Method Analysis TimePerformed AtPathologist SignatureVentricular Rate ECG/Wvq07XIQ MUSEPR Twzbiemw383rrRUQDYKLD Yzklnqvz68miFIYGTY Spniasgl576huYRYULYJ Interval 437msMUSEP Yjla76dfsekatRXRFX Vumn14pfxisxsOOJOT Wave Kzop52jasxgapDISL Specimen (Source)Anatomical Location / LateralityCollection Method / Volume Collection TimeReceived Time10/29/2025 10:41 PM CST10/29/2025 10:45 PM DIRECTOR OF MEDIA Impressions MUSE - 10/29/2025 10:45 PM DIRECTOR OF MEDIA Normal sinus rhythm Nonspecific ST abnormality When compared with ECG of 06-Jul-2025 07:57, No significant change was found Reviewed by LEONEL Cisse Narrative Procedure Note Néstor Navas M.D. - 10/29/2025 IMPRESSION: Normal sinus rhythm Nonspecific ST abnormality When compared with ECG of 06-Jul-2025 07:57, No significant change was found Reviewed by LEONEL Cisse Authorizing ProviderResult TypeResult StatusChharitha Beard M.D.ECG ORDERABLESFinal ResultPerforming OrganizationAddressCity/State/ZIP CodePhone Number MUSE NA * Lactate (10/29/2025 8:15 PM DIRECTOR OF MEDIA)ComponentValueRef RangeTest MethodAnalysis TimePerformed AtPathologist SignatureLactate, P1.60.5 - 2.2 mmol/L112/30/2024 8:54 PM CSTSTMASpecimen (Source)Anatomical Location / LateralityCollection Method / VolumeCollection TimeReceived OaizRjqai41/11/2025 8:15 PM DIRECTOR OF MEDIA 10/29/2025 8:32 PM DIRECTOR OF MEDIA Narrative Authorizing ProviderResult TypeResult StatusJennyfer Paulino M.D.LAB BLOOD NON ADD-ONFinal ResultPerforming OrganizationAddressCity/State/ZIP CodePhone Number [facility] [address] [place] [address], [facility] [address] [place] [address] * CT Abdomen Pelvis with IV Contrast (10/29/2025 3:56 PM DIRECTOR OF MEDIA)Anatomical Region LateralityModalityAbdomen, Pelvis, Abdominal RST LOS, Abdominal ARZ LOS, Abdominal FLA LOSN/AComputed Tomography, Computed TomographySpecimen (Source) Anatomical Location / LateralityCollection Method / VolumeCollection Time Received Time10/29/2025 3:48 PM DIRECTOR OF MEDIA Impressions 10/29/2025 4:00 PM DIRECTOR OF MEDIA 1. Decompressed bladder is difficult to characterize but with apparent wall thickening. Correlate with urinalysis. No hydronephrosis. 2. ??Diffuse hepatic steatosis. 3. ??Spleen size, as detailed. Narrative 10/29/2025 4:00 PM DIRECTOR OF MEDIA EXAM: CT ABDOMEN PELVIS WITH IV CONTRAST COMPARISON: ??06/30/2025 CT, and beyond FINDINGS: Diffuse hepatic steatosis. No definite suspicious hepatic lesion. ??Spleen measures 13.6 cm (AP) and 12.1 cm (CC), previously 14.0 cm and 12.8 cm, respectively. No pancreaticobiliary ductal dilation.??Negative adrenal glands. ??No hydronephrosis. Decompressed bladder. No bowel obstruction. Negative appendix. No definite suspicious lymphadenopathy. Procedure Note Lincoln Berger D.O. - 10/29/2025 EXAM: CT ABDOMEN PELVIS WITH IV CONTRAST COMPARISON: 06/30/2025 CT, and beyond FINDINGS: Diffuse hepatic steatosis. No definite suspicious hepatic lesion. Spleenmeasures 13.6 cm (AP) and 12.1 cm (CC), previously 14.0 cm and 12.8 cm,respectively. No pancreaticobiliary ductal dilation. Negative adrenalglands. No hydronephrosis. Decompressed bladder. No bowel obstruction.Negative appendix. No definite suspicious lymphadenopathy. IMPRESSION: 1. Decompressed bladder is difficult to characterize but with apparentwall thickening. Correlate with urinalysis. No hydronephrosis. 2. Diffuse hepatic steatosis. 3. Spleen size, as detailed. Authorizing ProviderResult TypeResult StatusMadeline Marisa Marquez P.A.-C., M.S.IM CT PROCEDURESFinal Result * (ABNORMAL) Microscopic Manual (10/29/2025 2:49 PM DIRECTOR OF MEDIA)ComponentValueRef Range Test MethodAnalysis TimePerformed AtPathologist SignatureMicroscopyAbnormal 10/29/2025 3:59 PM CSTDTLRBC<3<3 /hpf10/29/2025 3:59 PM HWFEQFEJG89-36(A)/hpf 10/29/2025 3:59 PM CSTDTLComment: ----REFERENCE VALUE---- <4 (Males) <11 (Females) Transitional Epithelial Cells1-3(A)/hpf10/29/2025 3:59 PM CSTDTLSquamous Epithelial Cells, U11-20/hpf10/29/2025 3:59 PM CSTDTLBacteriaPresent(A) 10/29/2025 3:59 PM CSTDTLSpecimen (Source)Anatomical Location / Laterality Collection Method / VolumeCollection TimeReceived JpcwMwclr19/11/2025 2:49 PM CST10/29/2025 3:37 PM DIRECTOR OF MEDIA Narrative Authorizing ProviderResult TypeResult StatusJennyfer Paulino M.D.LAB URINE ORDERABLESFinal ResultPerforming OrganizationAddressCity/State/ZIP CodePhone Number [facility] [address] [place] [address], [facility] [address] [place] [address] * (ABNORMAL) Dipstick, Urine (10/29/2025 2:49 PM DIRECTOR OF MEDIA)ComponentValueRef RangeTest MethodAnalysis TimePerformed AtPathologist SignatureHemoglobin, QL, UNegative Fbzqmnwg03/11/2025 3:38 PM CSTDTLLeukocyte Esterase, UModerate(A)Negative 10/29/2025 3:38 PM CSTDTLNitrite, YLppzlseaFjwrsffq64/11/2025 3:38 PM CSTDTL Ketone, UNegativeNegative mg/dL10/29/2025 3:38 PM CSTDTLGlucose, UNegative Negative mg/dL10/29/2025 3:38 PM CSTDTLSpecimen (Source)Anatomical Location / LateralityCollection Method / VolumeCollection TimeReceived TimeUrine 10/29/2025 2:49 PM CST10/29/2025 3:24 PM DIRECTOR OF MEDIA Narrative Authorizing ProviderResult TypeResult StatusSean Beard M.D.LAB URINE ORDERABLESFinal ResultPerforming OrganizationAddressCity/State/ZIP Code Phone Number [facility] [address] [place] [address], [facility] [address] [place] [address] * pH, Urine (10/29/2025 2:49 PM DIRECTOR OF MEDIA)ComponentValueRef RangeTest MethodAnalysis TimePerformed AtPathologist SignaturepH, U5.44.5 - 8.012 3:52 PM DIRECTOR OF MEDIA DTLSpecimen (Source)Anatomical Location / LateralityCollection Method / Volume Collection TimeReceived DqlkTzkjp82/11/2025 2:49 PM CST10/29/2025 3:24 PM DIRECTOR OF MEDIA Narrative Authorizing ProviderResult TypeResult StatusSean Beard M.D.LAB URINE ORDERABLESFinal ResultPerforming OrganizationAddressCity/State/ZIP Code Phone Number [facility] [address] [place] [address], [facility] [address] [place] [address] * Osmolality, Urine (10/29/2025 2:49 PM DIRECTOR OF MEDIA)ComponentValueRef RangeTest Method Analysis TimePerformed AtPathologist SignatureOsmolality, [id number] - 1150 mOsm/kg10/29/2025 3:52 PM CSTDTLSpecimen (Source)Anatomical Location / LateralityCollection Method / VolumeCollection TimeReceived TimeUrine 10/29/2025 2:49 PM CST10/29/2025 3:24 PM DIRECTOR OF MEDIA Narrative Authorizing ProviderResult TypeResult Jono Beard M.D.LAB URINE ORDERABLESFinal ResultPerforming OrganizationAddressCity/State/ZIP Code Phone Number [facility] [address] [place] [address], [facility] [address] [place] [address] * Bacterial Culture, Aerobic + Susceptibility, Urine (10/29/2025 2:49 PM DIRECTOR OF MEDIA) ComponentValueRef RangeTest MethodAnalysis TimePerformed AtPathologist SignatureUrine CultureUrogenital microbiota, susceptibilities not performed per laboratory criteria. 10/30/2025 10:30 AM CSTDTLSpecimen (Source)Anatomical Location / Laterality Collection Method / VolumeCollection TimeReceived TimeUrine (Urine, Midstream) 10/29/2025 2:49 PM CST10/29/2025 4:21 PM CSTComment:Specimen Source Site: Urine Narrative Authorizing ProviderResult TypeResult StatusSean Beard M.D.LAB MICROBIOLOGY - GENERAL ORDERABLESFinal ResultPerforming OrganizationAddress City/State/ZIP CodePhone Number [facility] [address] [place] [address], [place] [address] * Urinalysis, with Microscopic: Urine, Midstream (10/29/2025 2:49 PM DIRECTOR OF MEDIA) ComponentValueRef RangeTest MethodAnalysis TimePerformed AtPathologist SignatureSourceUrine, Urine, Xdswntvkd63/09/2025 3:24 PM CSTDTLColor, UYellow 10/29/2025 3:24 PM CSTDTLClarity, XEzivi9210/29/2025 3:24 PM CSTDTLProtein, U17 <26 mg/dL10/29/2025 4:15 PM CSTDTLProtein/Osmolality0.26<0.42 ratio10/29/2025 4:15 PM CSTDTLPredicted 24 HR Protein, U195<229 mg/24 10/29/2025 4:15 PM DIRECTOR OF MEDIA DTLPredicted Hiowc58-864jf/24 10/29/2025 4:15 PM CSTDTLSpecimen (Source) Anatomical Location / LateralityCollection Method / VolumeCollection Time Received TimeUrine (Urine, Midstream)10/29/2025 2:49 PM CST10/29/2025 3:24 PM DIRECTOR OF MEDIA Narrative Authorizing ProviderResult TypeResult StatusChrisdeepthi Beard M.D.LAB URINE ORDERABLESFinal ResultPerforming OrganizationAddressCity/State/ZIP Code Phone Number [facility] [address] [place] [address], [facility] DTL [facility] [address] [place] [address] * hCG (Human Chorionic Gonadotropin), Quantitative, (10/29/2025 2:41 PM DIRECTOR OF MEDIA)ComponentValueRef RangeTest MethodAnalysis TimePerformed AtPathologist SignatureHCG, Quantitative, , P1.0<5 IU/L112/30/2024 3:18 PM CSTSTMA Specimen (Source)Anatomical Location / LateralityCollection Method / Volume Collection TimeReceived TimeBlood (Blood, Venous)10/29/2025 2:41 PM DIRECTOR OF MEDIA 10/29/2025 2:58 PM DIRECTOR OF MEDIA Narrative Authorizing ProviderResult TypeResult StatusChharitha Beard M.D.LAB BLOOD ADD-ONFinal ResultPerforming OrganizationAddressCity/State/ZIP CodePhone Number [facility] [address] [place] [address], [facility] STMA [facility] [address] [place] [address] * Lactate for Sepsis with Reflex (10/29/2025 2:41 PM DIRECTOR OF MEDIA)ComponentValueRef Range Test MethodAnalysis TimePerformed AtPathologist SignatureLactate, P2.20.5 - 2.2 mmol/L112/30/2024 3:13 PM CSTSTMASpecimen (Source)Anatomical Location / LateralityCollection Method / VolumeCollection TimeReceived TimeBlood (Blood, Venous)10/29/2025 2:41 PM CST10/29/2025 2:59 PM DIRECTOR OF MEDIA Narrative Authorizing ProviderResult TypeResult StatusChristopher Linsey Beard M.D.LAB BLOOD NON ADD-ONFinal ResultPerforming OrganizationAddressCity/State/ZIP Code Phone Number [facility] [address] [place] [address], [facility] [address] [place] [address] * (ABNORMAL) CBC with Differential, Blood (10/29/2025 2:41 PM DIRECTOR OF MEDIA)ComponentValue Ref RangeTest MethodAnalysis TimePerformed AtPathologist SignatureHemoglobin 12.811.6 - 15.0 g/dL10/29/2025 3:01 PM QBMFUDOZsodbcykec43.735.5 - 44.9 % 10/29/2025 3:01 PM CSTSTMAErythrocytes4.653.92 - 5.13 x10(12)/L112/30/2024 3:01 PM HDAMSQBOMP45.178.2 - 97.9 fL10/29/2025 3:01 PM CSTSTMARBC Distrib Width13.2 12.2 - 16.1 %10/29/2025 3:01 PM CSTSTMAPlatelet Musuf536598 - 371 x10(9)/L 10/29/2025 3:01 PM CSTSTMALeukocytes4.43.4 - 9.6 x10(9)/L112/30/2024 3:01 PM CSTSTMANeutrophils2.911.56 - 6.45 x10(9)/L112/30/2024 3:01 PM CSTDHPM Lymphocytes0.990.95 - 3.07 x10(9)/L112/30/2024 3:01 PM CSTSTMAMonocytes0.18(L) 0.26 - 0.81 x10(9)/L112/30/2024 3:01 PM CSTSTMAEosinophils0.300.03 - 0.48 x10(9)/L112/30/2024 3:01 PM CSTSTMABasophils0.040.01 - 0.08 x10(9)/L112/30/2024 3:01 PM CSTSTMASpecimen (Source)Anatomical Location / LateralityCollection Method / VolumeCollection TimeReceived TimeBlood (Blood, Venous)10/29/2025 2:41 PM CST10/29/2025 2:58 PM DIRECTOR OF MEDIA Narrative Authorizing ProviderResult TypeResult StatusChristopher Linsey Beard M.D.LAB BLOOD ADD-ONFinal ResultPerforming OrganizationAddressCity/State/ZIP CodePhone Number [facility] [address] [place] [address], [facility] STMA [facility] [address] [place], [place] [address] [place] [address] [address] [place] [address] * Lipase (10/29/2025 2:41 PM DIRECTOR OF MEDIA)ComponentValueRef RangeTest MethodAnalysis Time Performed AtPathologist SignatureLipase, S1513 - 60 U/L112/30/2024 3:30 PM DIRECTOR OF MEDIA DTLSpecimen (Source)Anatomical Location / LateralityCollection Method / Volume Collection TimeReceived TimeBlood (Blood, Venous)10/29/2025 2:41 PM DIRECTOR OF MEDIA 10/29/2025 3:14 PM DIRECTOR OF MEDIA Narrative Authorizing ProviderResult TypeResult StatusChharitha Beard M.D.LAB BLOOD ADD-ONFinal ResultPerforming OrganizationAddressCity/State/ZIP CodePhone Number [facility] [address] [place] [address], [facility] DTL [facility] [address] [place] [address] * (ABNORMAL) Hepatic Function Panel (10/29/2025 2:41 PM DIRECTOR OF MEDIA)ComponentValueRef RangeTest MethodAnalysis TimePerformed AtPathologist SignatureBilirubin, Total, S0.30.0 - 1.2 mg/dL10/29/2025 3:30 PM CSTDTLBilirubin, Direct, S<0.10.0 - 0.3 mg/dL10/29/2025 3:30 PM CSTDTLAspartate Aminotransferase (AST), S358 - 43 U/L112/30/2024 3:30 PM CSTDTLAlanine Aminotransferase (ALT), S51(H)7 - 45 U/L112/30/2024 3:30 PM CSTDTLAlkaline Phosphatase, S9435 - 104 U/L112/30/2024 3:30 PM CSTDTLAlbumin, S4.43.5 - 5.0 g/dL10/29/2025 3:30 PM CSTDTLProtein, Total, S7.16.3 - 7.9 g/dL10/29/2025 3:30 PM CSTDTLSpecimen (Source)Anatomical Location / LateralityCollection Method / VolumeCollection TimeReceived Time Blood (Blood, Venous)10/29/2025 2:41 PM CST10/29/2025 3:14 PM DIRECTOR OF MEDIA Narrative Authorizing ProviderResult TypeResult StatusChristopher Linsey Beard M.D.LAB BLOOD ADD-ONFinal ResultPerforming OrganizationAddressCity/State/ZIP CodePhone Number [facility] [address] [place] [address], [facility] DTL [facility] [address] [place] [address] * (ABNORMAL) Basic Metabolic Panel (10/29/2025 2:41 PM DIRECTOR OF MEDIA)ComponentValueRef RangeTest MethodAnalysis TimePerformed AtPathologist SignaturePotassium, P3.7 3.6 - 5.2 mmol/L112/30/2024 3:17 PM CSTSTMASodium, J726418 - 145 mmol/L 10/29/2025 3:17 PM CSTSTMAChloride, Z69046 - 107 mmol/L112/30/2024 3:17 PM DIRECTOR OF MEDIA STMABicarbonate, P2622 - 29 mmol/L112/30/2024 3:17 PM CSTSTMAAnion Gap, P137 - 15112/30/2024 3:17 PM CSTSTMABUN (Blood Urea Nitrogen), P96 - 21 mg/dL 10/29/2025 3:17 PM CSTSTMACreatinine0.640.59 - 1.04 mg/dL10/29/2025 3:17 PM CSTSTMAEstimated GFR (eGFR)>90>=60 mL/min/BSA10/29/2025 3:17 PM CSTSTMA Comment: Estimated GFR calculated using the 2020 CKD_EPI creatinine equation. Calcium, Total, P9.48.6 - 10.0 mg/dL10/29/2025 3:17 PM CSTSTMAGlucose, P153(H)70 - 140 mg/dL10/29/2025 3:17 PM CSTSTMASpecimen (Source)Anatomical Location / LateralityCollection Method / VolumeCollection TimeReceived TimeBlood (Blood, Venous)10/29/2025 2:41 PM CST10/29/2025 2:58 PM DIRECTOR OF MEDIA Narrative Authorizing ProviderResult TypeResult StatusChristopher Linsey Beard M.D.LAB BLOOD ADD-ONFinal ResultPerforming OrganizationAddressCity/State/ZIP CodePhone Number [facility] [address] [place] [address], [facility] STMA [facility] [address] [place] [address] documented in this encounter Visit Diagnoses Diagnosis Lower Abdominal Pain Unspecified- Primary Pain Back Pyuria Adenomyosis documented in this encounter Administered Medications Medication OrderMAR ActionAction DateDoseRateSite droPERidoL injection 0.625 mg (Inapsine) 0.625 mg, intravenous, Once, On Tigist 10/29/25 at 2214, For 1 dose Given10/29/2025 10:51 PM CST0.625 mg fentaNYL injection 50 mcg (Sublimaze) 50 mcg, intravenous, Once, On Tigist 10/29/25 at 2210, For 1 dose Given10/29/2025 10:27 PM CST50 mcg HYDROmorphone tablet 2 mg (Dilaudid) 2 mg, oral, Once, On Sun10/30/25 at 0041, For 1 dose Given10/30/2025 12:48 AM CST2 mg ibuprofen tablet 600 mg 600 mg, oral, Once as needed, mild pain or score 1-3 of 10, moderate pain or score 4-6 of 10, severe pain or score 7-10 of 10, fever, temperature greater than 38 C, Starting on Tigist 10/29/25 at 1422, For 1 dose, Take with food or milk if GI disturbances occur with use. Given10/29/2025 2:25 PM IMT392 mg iohexoL 300 mg iodine/mL solution 1-200 mL (Omnipaque) 1-200 mL, intravenous, Once in imaging, contrast, Starting on Tigist 10/29/25 at 1543, For 1 dose, Imaging Protocol Orders, Dose per [facility] Medication Guidelines Given10/29/2025 3:50 PM EBO932 mL nitrofurantoin monohydrate capsule 100 mg (Macrobid) 100 mg, oral, Once, On Tigist 10/29/25 at 2319, For 1 dose, Drug Monitoring Program: Pharmacist to adjust medication dosing based on indication and drug clearance factors., Indications: Lower UTI, Non-Catheter Indications:Lower UTI, Non-TphyjxbrGnrxz64/11/2025 11:34 PM UGQ356 mg sodium chloride (PF) 0.9 % injection 1-100 mL 1-100 mL, intravenous, Once, On Tigist 10/29/25 at 1544, For 1 dose, Imaging Protocol Orders, Dose perRadiant Medication Guidelines Given10/29/2025 3:49 PM CST50 mL sodium chloride 0.9 % injection 10 mL 10 mL, intravenous, As needed, line care, Starting on Tigist 10/29/25 at 1421, Peripheral Intravenous Catheter and Rapid Infusion Catheter, prior to blood sampling, post blood transfusion or post blood sampling sodium chloride 0.9 % injection 3 mL 3 mL, intravenous, As needed, line care, Starting on Tigist 10/29/25 at 1421, Prior to and following infusion and between multiple consecutive infusions: sodium chloride 0.9 % injection sodium chloride 0.9 % injection 3 mL 3 mL, intravenous, Every 12 hours scheduled, First dose on Tigist 10/29/25 at 2100, Peripheral Intravenous Catheter and Rapid Infusion Catheter, when no infusion to maintain patency documented in this encounter Active and Recently Administered Medications Times are shown in DIRECTOR OF MEDIA.Medication Order droPERidoL injection 0.625 mg (Inapsine) (COMPLETED) 0.625 mg, intravenous, Once, On Tigist 10/29/25 at 2214, For 1 dose * 2251 (Given - Provider: Melva Carty R.N.) fentaNYL injection 50 mcg (Sublimaze) (COMPLETED) 50 mcg, intravenous, Once, On Tigist 10/29/25 at 2210, For 1 dose * 2227 (Given - Provider: Melva Carty R.N.) HYDROmorphone tablet 2 mg (Dilaudid) (COMPLETED) 2 mg, oral, Once, On Sun10/30/25 at 0041, For 1 dose * 0048 (Given - Provider: Vickie JarrettN.) nitrofurantoin monohydrate capsule 100 mg (Macrobid) (COMPLETED) 100 mg, oral, Once, On Tigist 10/29/25 at 2319, For 1 dose, Drug Monitoring Program: Pharmacist to adjust medication dosing based on indication and drug clearance factors., Indications: Lower UTI, Non-Catheter * 2334 (Given - Provider: Melva Carty R.N.) sodium chloride (PF) 0.9 % injection 1-100 mL (COMPLETED) 1-100 mL, intravenous, Once, On Tigist 10/29/25 at 1544, For 1 dose, Imaging Protocol Orders, Dose perRadiant Medication Guidelines * 1549 (Given - Provider: Deisy Lomas RKatalinaNKatalina) sodium chloride 0.9 % injection 3 mL 3 mL, intravenous, Every 12 hours scheduled, First dose on Tigist 10/29/25 at 2100, Peripheral Intravenous Catheter and Rapid Infusion Catheter, when no infusion to maintain patency * 2150 (Not Given - Provider: Melva Carty R.N. - Reason: Other) Medication Order ibuprofen tablet 600 mg (COMPLETED)(Linked Group 1) 600 mg, oral, Once as needed, mild pain or score 1-3 of 10, moderate pain or score 4-6 of 10, severe pain or score 7-10 of 10, fever, temperature greater than 38 C, Starting on Tigist 10/29/25 at 1422, For 1 dose, Take with food or milk if GI disturbances occur with use. * 1425 (Given - Provider: Racquel Oakley R.N.) iohexoL 300 mg iodine/mL solution 1-200 mL (Omnipaque) (COMPLETED) 1-200 mL, intravenous, Once in imaging, contrast, Starting on Tigist 10/29/25 at 1543, For 1 dose, Imaging Protocol Orders, Dose per [facility] Medication Guidelines * 1550 (Given - Provider: Deisy Lomas R.N.) sodium chloride 0.9 % injection 10 mL 10 mL, intravenous, As needed, line care, Starting on Tigist 10/29/25 at 1421, Peripheral Intravenous Catheter and Rapid Infusion Catheter, prior to blood sampling, post blood transfusion or post blood sampling sodium chloride 0.9 % injection 3 mL 3 mL, intravenous, As needed, line care, Starting on Tigist 10/29/25 at 1421, Prior to and following infusion and between multiple consecutive infusions: sodium chloride 0.9 % injection Order Group 1: ibuprofen tablet 600 mg (COMPLETED)Jump to med 600 mg, oral, Once as needed, mild pain or score 1-3 of 10, moderate pain or score 4-6 of 10, severe pain or score 7-10 of 10, fever, temperature greater than 38 C, Starting on Tigist 10/29/25 at 1422, For 1 dose, Take with food or milk if GI disturbances occur with use. Or ibuprofen suspension 600 mg (COMPLETED) 600 mg, oral, Once as needed, mild pain or score 1-3 of 10, moderate pain or score 4-6 of 10, severe pain or score 7-10 of 10, fever, temperature greater than 38 C, Starting on Tigist 10/29/25 at 1422, For 1 dose, If unable to tolerate tablets. documented in this encounter Additional Health Concerns InfectionOnset DateLast IndicatedResolved TimeProtective Mjszwzdptqt48/14/2023 03/02/2023ssessmentNoted TimePHQ-9 Depression Total Score: 9:42 AM CDTdocumented as of this encounter Care Teams Team MemberRelationshipSpecialtyStart DateEnd Date Elsewhere, Pcp PCP - GeneralInternal Xwswiazy27/5/25documented as of this encounter
--- OUTSIDE RECORDS SUMMARY | 2025-10-30 07:00 | XMS_ITS | Encounter Summary ---
Author Organization [facility] Address [address] [place] [address] Care Team Providers Care Custom Garment Designer Name Role Phone Elsewhere, Pcp Primary Care Provider Unavailabl e Reason for Visit * Transplant (Routine) - AuthorizedSpecialtyDiagnoses / ProceduresReferred By ContactReferred To ContactTransplant Diagnoses Transplant Stem Cell (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) Devi Roper APRN, C.N.P., D.N.P. [address] [place] [address] Phone: tel: fax: [facility] Referral IDStatusReasonStart DateExpiration DateVisits RequestedVisits [id number] Encounter Details DateTypeDepartmentCare Team (Latest Contact Info)Ykgrgymrdzt55/12/2025 7:00 AM CSTOffice Visit [facility] in [place], [place] [address] [place] [phone] Devi Roper APRN, C.N.P., Heaven.N.P. [address] [place] [phone] Lito Pollock P.A.-C. [address] [place] [phone] Transplant Bone Marrow Allogeneic (HCC) (Primary Dx); [...] before you got the money to buymore.Patient jlxujgzg37/25/2025Within the past 12 months, the food you [...] RecordedIn the past 12 months has the [employer], oil, or water [employer] threatened to shut off services in your home?Patient uyawlijl04/25/2025Postpartum DepressionAnswerDate RecordedPHQ- 9 Total Score (max 27)12007/08/2025Housing StabilityAnswerDate RecordedWhat is your living situation today?I have a steady place to live08/13/2025Education AnswerDate RecordedWhat is the highest level of school you have completed or the highest degree you have received?Some college, no apfqad6504/24/2019 CommentsNoSex and Gender InformationValueDate RecordedSex Assigned at Qsjvve1112/26/2018 8:37 PM CSTLegal WxnOttopo24/02/2017 2:43 PM CSTGender Identity Moyfif0012/26/2018 8:37 PM CSTSexual OrientationChoose not to dwtsogkv41/17/2021 3:46 PM CDTdocumented as of this encounter Last Filed Vital Signs Vital SignReadingTime TakenCommentsBlood Hkhnpakx251/9710/30/2025 7:06 AM BANK OFFICER Bqcgc96831/12/2025 7:06 AM RHJPheyvzdqzaw49.4 ??C (97.5 ??F)10/30/2025 7:06 AM CSTRespiratory Rate--Oxygen Saturation--Inhaled Oxygen Concentration--Wkdhgh153 kg (236 lb)10/30/2025 7:06 AM CSTHeight--Body Mass Index35.7709 10:31 AM CDTdocumented in this encounter Progress Notes * Lito Pollokc P.A.-C. - 10/30/2025 7:00 AM CST SUBJECTIVE TRANSPLANT PHYSICIAN Dr. Jessica Rousseau, pager [phone]. CHIEF COMPLAINT Ms. Radha Martinez is a [...] reticulin fibrosis noted. The cytogenetics identified a [place] chromosome in 20 metaphases. The BCR-ABL1 P [...] t(9;22) metaphases. NGS is positive for ASXL1 p.Ykw429Yktkn*12 (20%) and p.Meb738* (3%). 06/17/2024: feeling quite symptomatic since the [...] Access Camargo CVC placed on 12/03/24 by [facility]. Social Work Seen and cleared [...] prophylaxis: Ursodiol 600 mg two times daily. [facility]: [id number] [...] is going to request appointment with her timber hewer for further recommendation. She was prescribed with [...] going to make an appointment with her timber hewer. # Antimicrobial Prophylaxis - Currently on Acyclovir, Penicillin VK (on hold, will resume once completing cefdinir), Bactrim, and Posaconazole. - It should be noted she received two doses of Shingrix already. - CD4 245 on 10/30/25. I sent a message to Dr. Rousseau to ask if it is OK to stop Bactrim, posaconazole, and Acyclovir. # Transaminitis - [...] continues with group therapy three days weekly () focused on anxiety and panic attacks - Continues on aripiprazole 10mg daily and duloxetine 120mg daily - Hydroxyzine available for breakthrough anxiety; has not needed # Right eye strabismus # Potential left retina tear, stable - Right eye strabismus present since . Has only peripheral vision in right eye. Wears glasses. - Followed by [facility] in [place], [place]. # Transplant Survivorship - Please refer [...] stable. Therefore no lab until next visit. OFFICER OFFICER OFFICER OFFICER documented in this encounter Plan of Treatment DateTypeDepartmentCare Team (Latest Contact Info)Kllhwhmammf94/29/2025 9:00 AM CSTOffice Visit Department of Obstetrics and Gynecology in [address] [phone] Alice Linares M.D. [address] [place] [phone] 12/04/2025 1:30 PM CSTClinical Communication Virtual Review in [place], [place] [address] [place] [phone] 12/07/2025 8:10 AM CSTLab Department of Laboratory Medicine and Pathology, [facility], in [place], [place] [address] [place] [phone] Jessica Rousseau M.B.B.S. [address] [place] [phone] 12/07/2025 9:15 AM CSTAppointment Outpatient Procedure Center in [place], [place] [address] [place] [address] Jessica Rousseau M.B.B.S. [address] [place] [phone] 12/07/2025 11:00 AM CSTDiagnostic Division of Pulmonary Medicine in [place], [place] [address] [place] [address] Jessica Rousseau M.B.B.S. [address] [place] [phone] 12/07/2025 1:00 PM CSTOffice Visit Pedro [facility] in [place], [place] [address] [place] [address] Jessica Rousseau M.B.B.S. [address] [place] [phone] 12/07/2025 1:30 PM CSTNurse Only [facility] in [place], [place] [address] [place] [address] Jessica Rousseau M.B.B.S. [address] [place] [phone] 12/07/2025 2:00 PM CSTOffice Visit [facility] in [place], [place] [address] [place] [address] Jessica Rousseau M.B.B.S. [address] [place] [phone] 12/07/2025 3:00 PM CSTOffice Visit Department of Palliative Care in [place], [place] [address] [place] [phone] Martine Pardo B.M.B.S., BKatalinaM., B.Ch. [address] [place] [phone] documented as of this encounter Results * (ABNORMAL) CD4 Count for Immune Monitoring (10/30/2025 7:55 AM BANK OFFICER)Component ValueRef RangeTest MethodAnalysis TimePerformed AtPathologist YdcqliuiiSQ72 Total Lymph Count0.870.82 - 2.84 thou/[facility]10/30/2025 4:06 PM CSTSDSC% CD3 (T Cells)56(L)58 - 86 %10/30/2025 4:06 PM CSTSDSCCD3 (T Cells)487(L)550 - 2202 cells/[facility]10/30/2025 4:06 PM CSTSDSC% CD4 (T Cells)28(L)32 - 64 %10/30/2025 4:06 PM CSTSDSCCD4 (T Cells)245(L)365 - 1437 cells/[facility]10/30/2025 4:06 PM BANK OFFICER SDSC% CD8 (T Cells)2815 - 40 %10/30/2025 4:06 PM CSTSDSCCD8 T Zbmrt187224 - 846 cells/[facility]10/30/2025 4:06 PM CSTSDSC4/8 Ratio1.0>=0.912/10/2025 4:06 PM BANK OFFICER SDSC% Sample Zxkitfqcr71%10/30/2025 4:06 PM CSTSDSC% Lymphocyte Tejzgwwgg32% 10/30/2025 4:06 PM CSTSDSCComment: ----ADDITIONAL INFORMATION---- This test was developed and its performance characteristics determined by [facility] in a manner consistent with CLIA requirements. This test has not been cleared or approved by the U.S. Food and Drug Administration. Specimen (Source)Anatomical Location / LateralityCollection Method / Volume Collection TimeReceived TimeBlood (Blood, Venous)10/30/2025 7:55 AM BANK OFFICER 10/30/2025 9:49 AM BANK OFFICER Narrative Authorizing ProviderResult TypeResult StatusYapeng Phill MirzaLAB BLOOD ADD-ON Final ResultPerforming OrganizationAddressCity/State/ZIP CodePhone Number [facility] [address] [place] [address] [facility] [address] [place] [address] [place] [address] documented in this encounter Visit Diagnoses Diagnosis Transplant Bone Marrow Allogeneic (HCC)- Primary Leukemia Myeloid Chronic BCR/ABL Positive Remission (HCC) documented in this encounter Additional Health Concerns InfectionOnset DateLast IndicatedResolved TimeProtective Sjkgkaltsrw42/14/2023 03/02/2023ssessmentNoted TimePHQ-9 Depression Total Score: 12007/08/2025 9:42 AM CDTdocumented as of this encounter Care Teams Team MemberRelationshipSpecialtyStart DateEnd Date Elsewhere, Pcp PCP - GeneralInternal Hyhlmlfp94/5/25documented as of this encounter
--- OUTSIDE RECORDS SUMMARY | 2025-10-30 09:00 | XMS_ITS | Encounter Summary ---
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 [address] [place] [phone] Phone: tel: fax: [facility] Referral IDStatusReasonStart DateExpiration DateVisits RequestedVisits [id number]/12/20256/ Scheduling Instructions Please RN visit today at 10:00 am E CUTTING MACHINE OPERATOR HELPER * Outpatient (Routine) - AuthorizedSpecialtyDiagnoses / ProceduresReferred By ContactReferred To ContactPalliative Medicine Meghan Osorio M.D. [address] [place] [phone] Phone: tel: fax: [facility] Referral IDStatusReasonStart DateExpiration DateVisits RequestedVisits [id number]/12/20256/ Scheduling Instructions Coordinate with BMT visits same day E CUTTING MACHINE OPERATOR HELPER Reason for Visit * Outpatient (Routine) - ClosedSpecialtyDiagnoses / ProceduresReferred By ContactReferred To ContactRiverton Hospitalliative Medicine Meghan Osorio M.D. [address] [place] [phone] Phone: tel: fax: Adore Calero M.D. [address] [place] [phone] Phone: tel: fax: Referral IDStatusReasonStart DateExpiration DateVisits RequestedVisits [id number]/23/20253/ Encounter Details DateTypeDepartmentCare Team (Latest Contact Info)Wzlvfzbfxki67/12/2025 9:00 AM CSTOffice Visit Department of Palliative Care in [place], [place] [address] [place] [phone] Meghan Osorio M.D. 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); Nausea And Vomiting; Dizziness; Pain Left Lower Quadrant; Abdominal Pain; Pain Neuropathic; Transplant Bone Marrow Allogeneic (HCC); Palliative Care Social History Tobacco UseTypesPacks/DayYears UsedDateSmoking Tobacco: [...] before you got the money to buymore.Patient jxchpafq01/25/2025Within the past 12 months, the food you bought just didn't last and you didn't have money to get more.Patient ttntgbty76/25/2025PRAPARE - TransportationAnswerDate RecordedIn the past 12 months, has lack of transportation kept you from medical appointments or from getting medications?No08/13/2025In the past 12 months, has lack of transportation kept you from meetings, work, or from getting things needed for daily living?No08/13/2025HC UtilitiesAnswerDate RecordedIn the past 12 months has the [employer], gas, oil, or water company threatened to shut off services in your home?Patient rxvvutup18/25/2025Postpartum DepressionAnswerDate RecordedPHQ- 9 Total Score (max 27)12007/08/2025Housing StabilityAnswerDate RecordedWhat is your living situation today?I have a steady place to live08/13/2025Education AnswerDate RecordedWhat is the highest level of school you have completed or the highest degree you have received?Some college, no glrdgs7604/24/2019 CommentsNoSex and Gender InformationValueDate RecordedSex Assigned at Uwtxiq5012/26/2018 8:37 PM CSTLegal TchBcrxhn23/02/2017 2:43 PM CSTGender Identity Krynvu7612/26/2018 8:37 PM CSTSexual OrientationChoose not to xxivwwci90/17/2021 3:46 PM CDTdocumented as of this encounter Last Filed Vital Signs Vital SignReadingTime TakenCommentsBlood Pressure--Pulse--Temperature-- Respiratory Rate--Oxygen Hcyxohonmv47%10/30/2025 8:54 AM CSTInhaled Oxygen Concentration--Weight--Height--Body Mass Index--documented in this encounter Progress Notes * Meghan Osorio M.D. - 10/30/2025 9:00 AM CST [facility] Outpatient Palliative Care Progress Note Patient: Radha Martinez; 35 y.o.female LOCATION Palliative Care Clinic SUBJECTIVE Radha Martinez is a 35 y.o. 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 Date of Last Visit: 08/11/25 The patient verbally consented to an audio recording of their visit to assist with the completion of documentation. Interval History: Recall, Chayito has been following in the palliative Care Clinic primarily for management of neuropathic pain, anxiety, and nausea. She also has abdominal pain of unclear etiology that has been extensively worked up without explicit etiology identified. BMT team believes there to be a low likelihood of GVHD of the GI tract based on negative workup thus far. She has had acute episodes diagnosed clinically as gastroenteritis. After our most recent visit in July, Chayito participated in an intensive outpatient program for management of depression and anxiety. She follows closely with her local therapist. She previously was seen in transplant Psychiatry however has missed her recent visits. Most recent follow-up in transplant Clinic on 10/26. [place] to have low likelihood of GVHD. She will be next seen in mid November and have her 1 year bone marrow biopsy. Just last night was seen in the emergency department due to worsening left lower quadrant and lowerback pain since of last week, accompanied by low- grade fever and vomiting. UA showed whitecells and thus was treated empirically for UTI with cefdinir x7 days. CT abdomen/pelvis and pelvic ultrasound did not show any additional acute findings. CBC and BMP were within normal limits, and LFTs showed isolated mild elevation in ALT to 51. History of Present Illness Chayito has been experiencing severe LLQ and low back/pelvis pain since October 22, which differs from her previous abdominal pain. The pain is accompanied by systemic symptoms including low-grade fever, vomiting, and nausea. She has been using Tylenol 1000 mg and ibuprofen 400 mg every 5-6 hours for pain relief, but these have not been effective. Dilaudid prescribed in the ER last night was also not helpful. Heat and ice provide minimal relief. She was surprised to hear of UTI diagnosis given lack of dysuria, but does feel that this could explain her pain and systemic symptoms. A urine culture was taken, but results are pending. She received a dose of nitrofurantoin in the ER and has been prescribed cefdinir. Accompanying the symptoms above have been worsening nausea and vomiting, with the last episode of vomiting occurring yesterday at 11 AM. She has been using Zofran 4 mg and Compazine 10 mg at home, but these have not been effective. She was given metoclopramide (Reglan) for nausea from the ER doctors but has not yet started it. She is waiting for a prior authorization for Kytril, as this was helpful when she received it in BMT Clinic on Sunday. She feels completely run down. She has been experiencing chills and occasional shortness of breath at night. No diarrhea or cough. 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 She has not made any recent changes to her medication regimen and feels these symptoms arewell controlled. She shares worries today about how she will get home to [place] driving herself. She wonders if she needs additional fluids, as this did help on Friday 10/26 The following portions of the patient's history were reviewed and updated as appropriate: Allergies, Current Medications, Medical History, Surgical History, Family History, and Social History Additionally, if completed, NCCN Distress Thermometer Reviewed as relevant to current encounter. OBJECTIVE Objective Physical Exam: Temperature: [36.4 ??C-36.9 ??C] 36.4 ??C Heart Rate: [73-91] 80 Resp Rate: [14-22] 14 Blood Pressure: (114-161)/(69-106) 134/97 SpO2: [94 %-99 %] 96 % Weight: [107 kg] 107 kg Pulse Rate: [73-108] 108 Physical Exam General: Fatigued; no acute distress HEENT: Chronic strabismus Lungs: No use of accessory muscles of respiration, non-labored breathing pattern. Extremities: No lower extremity edema noted. Neurologic: Oriented X3, intact cognition. Psychiatric: depressed affect, intermittently tearful Palliative Functional Assessment 80%- Full ambulation, Normal activity with effort and some evidence of disease, Full self-care, Normal or reduced intake, Full level of consciousness Medications/Diagnostics: Relevant results for this consult include: 10/29 CT abdomen/pelvis IMPRESSION: 1. Decompressed bladder is difficult to characterize but with apparent wall thickening. Correlate with urinalysis. No hydronephrosis. 2. Diffuse hepatic steatosis. 3. Spleen size, as detailed. 10/29 ultrasound pelvis transvaginal: IMPRESSION: 1. Heterogeneous appearance of the myometrium, which can be seen with uterine adenomyosis. 2. Normal sonographic appearance of the bilateral ovaries with patent arterial vasculature. The ovarian veins were not visualized bilaterally. No definite evidence of ovarian torsion. 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 She has only received 1 dose ofantibiotics with nitrofurantoin last night, so would benefit from a dose of IV ceftriaxone to help her start feeling better more quickly. I will also arrange for IV fluids and a dose of Kytril IV in the infusion center along with antibiotics today. We will also provide aroma therapy for nausea and place acupressure beads today to aid in symptom relief. Discussed additional findings from her transvaginal ultrasound that show possible adenomyosis of the uterus. Unclear if this is related to her separate abdominal pain that has been continuing for months with unclear etiology. She does note history of endometriosis. I do think it is reasonable that she follow- up with gynecology to further evaluate potential gynecologic causes of her abdominal pain. Note, she has not had a menstrual cycle since her transplant in November. Chemotherapy-induced peripheral neuropathy is well controlled with current Butrans and duloxetine. We discussed trialing discontinuation of low-dose Butrans, however will hold off today given her acute illness. We will plan to see her back in November, coordinated with her follow-up 1 year visit with BMT. Plan to likely discontinue Butrans at that time and transition her care back to PCP Mood (anxiety, depression) remains a challenge but she feels well supported by her local therapy team. Recommendations Set up in infusion today of 1 L normal saline, granisetron 1 mg, and a dose of ceftriaxone 1 g IV while awaiting culture results. She will start cefdinir for 1 week once she picks this up later todayat her home pharmacy Encouraged her to trial the metoclopramide PRN for nausea that was prescribed in the ER, though avoid taking it 4 times a day for multiple days in a row given her prior history of akathisia Can also trial taking ondansetron 8 mg if 4 mg is not effective BMT team is working on prior authorization for granisetron Auricular acupressure today and aroma therapy for nonpharmacologic nausea management No adjustments made to pain regimen for now, continue Butrans patch 5 mcg/hour and duloxetine for chemo induced peripheral neuropathy We will see back in November when she returns for her 1 year follow-up with BMT. If symptoms are stable, would recommend discontinuing Butrans and transitioning care to her PCP Opioid Summary Opioid Need: This patient has a condition that necessitates treatment with an opioid for longer than 7 days. Additionally, a non-opioid alternative was not appropriate or inadequate to manage patient???s pain. We have reviewed risks, benefits and alternatives related to opioid prescribing as well as relevant mitigation strategies. Diagnosis related to controlled substance prescribing: Chemotherapy-induced peripheral neuropathy [place] [employer] SPECIALIST Review: We have reviewed the patient's record in the [place] prescription monitoring program 10/30/2025. Opioid Toxicity Review: We have reviewed the risks of opioid therapy and completed an assessment oftoxicities. Opioid Aberrant Use Concerns: None Opioid Risk Score: Last Opioid Risk Tool charting Flowsheet Row Comprehensive Visit from 04/21/2025 in Department of Palliative Care in [place], [place] ORT Total Score (max 26) 2 [...] have outlined. Follow up visit: provider 1 month, clinic visit Total time spent was 45 minutes. Lisa Magdaleno M.D. E CUTTING MACHINE OPERATOR HELPER * Renita Christensen R.N. - 10/30/2025 9:00 AM CST PALLIATIVE CARE OUTPATIENT NURSING VISIT Patient Name: Radha Martinez Age: 35 y.o. Reason for Palliative Medicine Nurse Visit: Aromatherapy for symptom management in the setting of nausea and anxiety. I introduced the patient to aromatherapy-the use of plant-derived, essential oils to promote wellbeing and assist with symptom management. Prior to utilizingSelection of essential oil based on symptoms, How to buy quality essential oils, Safe dilution practices, Safe storage, and Inhalation methodsfor essential oil use aromatherapy, safety precautions were reviewed including allergies, respiratory conditions, and scent sensitivities. ASSESSMENT Identified symptom concerns: Nausea and Anxiety Previous essential oil use: no Oils discussed: Mandarin, Spearmint, and Shadia. RECOMMENDATION/PLAN Reviewed: Selection of essential oil based on symptoms, How to buy quality essential oils, Safe dilution practices, Safe storage, Inhalation methods for essential oil use, and Quality educational resources Education provided:Aromatherapy Safety [id number] , Essential Oil Patient Education [id number] , and Auricular Acupressure Intro Flyer [id number] Patient verbalized understanding of safe use of aromatherapy. Visit and plan was discussed with Dr. Chow Encouraged use of essential oils for nausea today. Advised Radha to reach out with any further questions or concerns. Renita Christensen R.N. Palliative Care Nurse [facility] E CUTTING MACHINE OPERATOR HELPER documented in this encounter Plan of Treatment DateTypeDepartmentCare Team (Latest Contact Info)Peszgcvehnh22/29/2025 9:00 AM CSTOffice Visit Department of Obstetrics and Gynecology in [place] [address] [place] [phone] Alice Linares M.D. [address] [place] [phone] 12/04/2025 1:30 PM CSTClinical Communication Virtual Review in [place], [place] [address] [place] [phone] 12/07/2025 8:10 AM CSTLab Department of Laboratory Medicine and Pathology, [facility] in [place], [place] [address] [place] [phone] Jessica Rousseau M.B.B.S. [address] [place] [phone] 12/07/2025 9:15 AM CSTAppointment Outpatient Procedure Center in [place], [place] [address] [place] [phone] Jessica Rousseau M.B.B.S. [address] [place] [phone] 12/07/2025 11:00 AM CSTDiagnostic Division of Pulmonary Medicine in [place], [place] [address] [place] [phone] Jessica Rousseau M.B.B.S. [address] [place] [phone] 12/07/2025 1:00 PM CSTOffice Visit [facility] in [place], [place] [address] [place] [phone] Jessica Rousseau M.B.B.S. [address] [place] [phone] 12/07/2025 1:30 PM CSTNurse Only [facility]Thomas [facility] in [place], [place] [address] [place] [phone] Jessica Rousseau M.B.B.S. [address] [place] [phone] 12/07/2025 2:00 PM CSTOffice Visit Pedro sanchez [facility] for Transplantation and Clinical Regeneration in [place], [place] [address] [place] [phone] Jessica Rousseau M.B.B.S. [address] [place] [phone] 12/07/2025 3:00 PM CSTOffice Visit Department of Palliative Care in [place], [place] [address] [place] [phone] Martine Pardo B.M.BKatalinaS., B.M., B.Ch. 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
--- OUTSIDE RECORDS SUMMARY | 2025-10-30 10:00 | XMS_ITS | Encounter Summary ---
Author Organization [facility] Address [address] [place] [address] Care Team Providers Care Lamp Mechanic Name Role Phone Elsewhere, Pcp Primary Care Provider Unavailabl e Reason for Visit * Outpatient (Routine) - ClosedSpecialtyDiagnoses / ProceduresReferred By ContactReferred To ContactPalliative Medicine Diagnoses Acute Cystitis Without Hematuria Leukemia Myeloid Chronic BCR/ABL Positive Not Having Achieved Remission (HCC) Meghan Osorio M.D. 200 [place] [address] Phone: tel: fax: [facility] Referral IDStatusReasonStart DateExpiration DateVisits RequestedVisits [id number]/12/20256/ Encounter Details DateTypeDepartmentCare Team (Latest Contact Info)Nnmjzqqrtiv13/12/2025 10:00 AM CSTClinical Support Department of Palliative Care in [place], [place] [address] [place] [phone] Meghan Osorio M.D. [address] [place] [address] Lucy Boyd R.N., PN [address] [place] [address] Nausea And Vomiting (Primary Dx) Social History [...] before you got the money to buymore.Patient gbiwaaby45/25/2025Within the past 12 months, the food you bought just didn't last and you didn't have money to get more.Patient poxffaao91/25/2025PRAPARE - TransportationAnswerDate RecordedIn the past 12 months, has lack of transportation kept you from medical appointments or from getting medications?No08/13/2025In the past 12 months, has lack of transportation kept you from meetings, work, or from getting things needed for daily living?No08/13/2025HC UtilitiesAnswerDate RecordedIn the past 12 months has the [address] [employer], gas, oil, or water [employer] threatened to shut off services in your home?Patient rsfqzcyz08/25/2025Postpartum DepressionAnswerDate RecordedPHQ- 9 Total Score (max 27)Housing StabilityAnswerDate RecordedWhat is your living situation today?I have a steady place to live08/13/2025Education AnswerDate RecordedWhat is the highest level of school you have completed or the highest degree you have received?Some college, no ggjmeb5004/24/2019 CommentsNoSex and Gender InformationValueDate RecordedSex Assigned at Wljiyr1112/26/2018 8:37 PM CSTLegal VklBbgpek77/02/2017 2:43 PM CSTGender Identity Shlgtd6612/26/2018 8:37 PM CSTSexual OrientationChoose not to /17/2021 3:46 PM CDTdocumented as of this encounter Nursing Notes * Lucy Boyd R.N., [facility] - 10/30/2025 10:00 AM CST PALLIATIVE [...] of the above. Auricular Acupressure Treatment Sheet [id number] were provided and reviewed with the patient. Follow up recommendations or education provided on self care. Visit and plan was discussed with Dolores Scott DNP. Patient is being seen for follow up visits in by Palliative providers. Lucy Boyd R.N., PN Palliative Care Nurse [facility] documented in this encounter Miscellaneous Notes * Addendum Note - Lucy Boyd R.N., [facility] - 10/30/2025 10:00 AM CSTAddended by: LUCY BOYD on: 10/30/2025 10:46 AM Modules accepted: Level of Service documented in this encounter Plan of Treatment DateTypeDepartmentCare Team (Latest Contact Info)Glmoquoafid21/29/2025 9:00 AM CSTOffice Visit Department of Obstetrics and Gynecology in [address] [address] Alice Linares M.D. [address] [place] [phone] 12/04/2025 1:30 PM CSTClinical Communication Virtual Review in [place], [place] 200 [place] [address] 12/07/2025 8:10 AM CSTLab Department of Laboratory Medicine and Pathology, [facility], in [address] [address] Jessica Rousseau M.B.B.S. [address] [place] [phone] 12/07/2025 9:15 AM CSTAppointment Outpatient Procedure Center in [address] [address] Jessica Rousseau M.B.B.S. [address] [place] [phone] 12/07/2025 11:00 AM CSTDiagnostic Division of Pulmonary Medicine in [place], [place] [address] [place] [phone] Jessica Rousseau M.B.B.S. [address] [place] [phone] 12/07/2025 1:00 PM CSTOffice Visit [facility] Transplantation and Clinical Regeneration in [place], [place] [address] [place] [address] Jessica Rousseau M.B.B.S. [address] [place] [phone] 12/07/2025 1:30 PM CSTNurse Only [facility] Transplantation and Clinical Regeneration in [place], [place] [address] [place] [phone] Jessica Rousseau M.B.B.S. [address] [place] [phone] 12/07/2025 2:00 PM CSTOffice Visit [facility] Transplantation and Clinical Regeneration in [place], [place] [address] [place] [address] Jessica Rousseau M.B.B.S. [address] [place] [phone] 12/07/2025 3:00 PM CSTOffice Visit Department of Palliative Care in [place], [place] [address] [place] [phone] Martine Pardo B.M.B.S., B.M., B.Ch. [address] [place] [phone] documented as of this encounter Visit Diagnoses Diagnosis Nausea And Vomiting- Primary documented in this encounter Additional Health Concerns InfectionOnset DateLast IndicatedResolved TimeProtective Tzwgmkdbyto27/14/2023 3AssessmentNoted TimePHQ-9 Depression Total Score: 9:42 AM CDTdocumented as of this encounter Care Teams Team MemberRelationshipSpecialtyStart DateEnd Date Elsewhere, Pcp PCP - GeneralInternal Wtxwdgpi83/5/25documented as of this encounter
--- OUTSIDE RECORDS SUMMARY | 2025-10-31 16:27 | XMS_ITS | Clinical Summary ---
Author Organization [employer] [facility] Address [address] [place] [address] Care Team Providers Care Stranding Machine Operator Name Role Phone Antoinette Palacio PhD, LP Unavailable [phone] Shweta Graciakim Huber LADLE HANDLER Unavailable [phone] Unavailable [phone] Staff, Other Clinical Unavailable Unavailabl e Ermelinda Pierre MD Primary Care Prov ider Allergies Active AllergyReactionsCriticalityNoted ZllqYcmisapnGkdbmekertfVeadk04/13/2017 GrapefruitOther - Describe In Comment Field06/28/2021 Interaction with Tasigna medication Grapefruit ExtractOther - Describe In Comment Field06/28/2021 Interaction with Tasigna medication Interaction with Tasigna medication VwztytvdkKrrby44/13/2017 Medications MedicationSigDispense QuantityRefillsLast FilledStart DateEnd DateStatus dasatinib (SpryceL) 140 mg tablet Take 1 Tablet (140 mg) by mouth once daily.ctive cholecalciferol, Vitamin D3, 2,000 unit tablet Take 1 Tablet (2,000 units) by mouth once daily.0Active onabotulinumtoxinA (BOTOX) 100 unit solr Inject 200 units intramuscular.08/22/2022ctive ketoconazole 2% shampoo (NIZORAL) 2 % shampoo Apply 1 Application topically to affected area(s) one time if needed.04/24/2023 Active prochlorperazine (COMPAZINE) 5 mg tablet Indications:Chemotherapy induced nausea and vomitingTake 1 Tablet (5 mg) by mouth every 6 hours if needed for Nausea/Vomiting. 30 Tablet 3Active ondansetron (ZOFRAN ODT) 4 mg disintegrating tablet Indications:NauseaPlace 1 Tablet (4 mg) on the tongue every 8 hours if needed for Nausea/Vomiting. 30 Tablet 06/23/2024ctive hydrOXYzine HCL (ATARAX) 25 mg tablet Indications:Generalized anxiety disorder,MDD (major depressive disorder), recurrent episode, mildTake 1-2 Tablets (25-50 mg) by mouth every 6 hours if needed for Anxiety. 90 Tablet ctive buprenorphine 5 mcg/hr (BUTRANS) 5 mcg/hour transdermal patch Apply 1 Patch on dry, clean, hairless skin once weekly.06/05/2025tive DULoxetine (CYMBALTA) 60 mg Delayed-release capsule Indications:MDD (major depressive disorder), recurrent episode, moderate (HC) Take 2 Capsules (120 mg) by mouth once daily. 180 Capsule 5Active ARIPiprazole (Abilify) 10 mg tablet Indications:MDD (major depressive disorder), recurrent episode, moderate (HC) Take 1 Tablet (10 mg) by mouth once daily. 90 Tablet 5Active acyclovir (ZOVIRAX) 400 mg tablet Take 400 mg by mouth two times daily.5Active HYDROmorphone 2 mg tablet Take 2 mg by mouth at bedtime.07/17/2025tive melatonin 5 mg tablet Take 5-10 mg by mouth once daily in the evening.Active penicillin v potassium (PEN-VEE K) 500 mg tablet Take 500 mg by mouth two times daily before meals.04/29/2025tive posaconazole (NOXAFIL) 100 mg delayed release tablet Take 300 mg by mouth once daily with a meal.5Active trimethoprim-sulfamethoxazole 80-400 mg tab Take 1 Tablet by mouth once daily.5Active Active Problems ProblemNoted DateDiagnosed DateEncounters for administrative /14/2025 Encounters for administrative biviunsb99/04/2024Obesity (BMI 30.0-34.9) 09/20/2022Insulin jfiqtrndnf44/02/2022besity, Class II, BMI 35-39.908/ Weight gain07/07/2022Eating kyxvwhxi24/19/2022hronic mixed headache syndrome 06/17/2019Localized enlarged lymph nodes04/03/2019Pain in joint03/06/2019Chronic myeloid kedxaspc86/23/2019Controlled substance agreement kfcaog3104/09/2017 Overview (03/19/2018): Signed 11/20/2016 Dr Mady Yanez Psychiatry Relationship jmglgkfa89/23/4756Wymzc94/23/2017Major depressive disorder, recurrent episode, ogjplbpl03/28/2016Generalized anxiety dcoimsyi30/19/2015 Adjustment disorder with anxious mood01/07/20156852Hqdlapmkwcgkm60/16/2013Tension headache Resolved Problems ProblemNoted DateDiagnosed DateResolved DateDepression, major, recurrent, rjgdetkp25Major depressive disorder, recurrent, severe without psychotic chzmgkeo70Depression, hsdhbtzpid12 Supervision of normal first fprfalfar46/18/ttention deficit disorder without mention of pcxcuhecjcaog08Major depressive disorder, recurrent episode, jniqjpcsmzi84 Encounters DateTypeDepartmentCare JxwpDhlgnkssgvz64/11/2025 9:00 AM POLYTECHNIC TEACHER - 10/29/2025 11:59 PM CSTHospital Encounter [facility] [address] [place] [address] Generalized anxiety disorder; Major depressive disorder, recurrent episode, moderate (HC)10/29/2025Travel 10/28/2025Nurse Triage [facility] [address] [place] [address] Ermelinda Pierre MD Abdominal Pain10/27/2025Telephone [facility] [address] [place] [address] Antonina Donovan Satnam DT10/27/2025Telephone [facility] [address] [place] [address] Belkis Weathers (This remote mortgage underwriter spoke with the patient, who is currently in urgent care. Spoke about attendance and discharging to use day treatment benefit when healthier or a referral to virtual programming.)10/27/2025Nurse Triage [facility] [address] [place] [address] Ermelinda Pierre MD Abdominal Pain10/22/2025Telephone [facility] [address] [place] [address] Irina Hazel Hgaspdhehpu47/03/2025 9:00 AM POLYTECHNIC TEACHER - 10/21/2025 11:59 PM CSTHospital Encounter [address] [address] Generalized anxiety disorder; Major depressive disorder, recurrent episode, moderate (HC)10/20/2025 9:00 AM POLYTECHNIC TEACHER - 10/20/2025 11:59 PM CSTHospital Encounter [facility] [address] [place] [address] Generalized anxiety disorder; Major depressive disorder, recurrent episode, moderate (HC)10/20/2025Travel 10/14/2025 8:58 AM POLYTECHNIC TEACHER - 10/14/2025 11:59 PM CSTHospital Encounter [address] [address] Generalized anxiety disorder; Major depressive disorder, recurrent episode, moderate (HC)10/14/2025Travel 10/08/2025 8:56 AM POLYTECHNIC TEACHER - 10/08/2025 11:59 PM CSTHospital Encounter [facility] [address] [place] [address] Generalized anxiety disorder; Major depressive disorder, recurrent episode, moderate (HC)10/08/2025Travel 10/07/2025 8:57 AM POLYTECHNIC TEACHER - 10/07/2025 11:59 PM CSTHospital Encounter [facility] [address] [place] [address] Generalized anxiety disorder; Major depressive disorder, recurrent episode, moderate (HC)10/06/2025 8:59 AM POLYTECHNIC TEACHER - 10/06/2025 11:59 PM CSTHospital Encounter [facility] [address] [place] [address] Generalized anxiety disorder; Major depressive disorder, recurrent episode, moderate (HC)10/06/2025Telephone [facility] [address] [place] [address] Iris Victor, [facility] Care Coordination (Re-Engagement )10/06/20258190Rpxore35/13/2025Telephone [facility] [address] [place] [address] Irina Hazel Day treatment group09/30/2025 8:50 AM POLYTECHNIC TEACHER - 09/30/2025 11:59 PM CSTHospital Encounter [address] [address] Generalized anxiety disorder; Major depressive disorder, recurrent episode, moderate (HC)09/29/2025 8:55 AM POLYTECHNIC TEACHER - 09/29/2025 11:59 PM CSTHospital Encounter [address] [address] Generalized anxiety disorder; Major depressive disorder, recurrent episode, moderate (HC)09/29/2025Travel 09/24/2025 9:00 AM POLYTECHNIC TEACHER - 09/24/2025 11:59 PM CSTHospital Encounter [facility] [address] [place] [address] Generalized anxiety disorder; Major depressive disorder, recurrent episode, moderate (HC)09/23/2025 8:56 AM POLYTECHNIC TEACHER - 09/23/2025 11:59 PM CSTHospital Encounter [address] [address] Generalized anxiety disorder; Major depressive disorder, recurrent episode, moderate (HC)09/23/2025Travel 09/22/2025Telephone [facility] [address] [place] [address] Irina Hazel Day treatment group09/17/2025 8:55 AM CDT - 09/17/2025 11:59 PM CDTHospital Encounter [facility] [address] [facility] [place] [address] Generalized anxiety disorder; Major depressive disorder, recurrent episode, moderate (HC)09/17/2025Travel 09/16/2025 8:55 AM CDT - 09/16/2025 11:59 PM CDTHospital Encounter [facility] [address] [place] [address] Generalized anxiety disorder; Major depressive disorder, recurrent episode, moderate (HC)09/15/2025 8:57 AM CDT - 09/15/2025 11:59 PM CDTHospital Encounter [facility] [address] [place] [address] Generalized anxiety disorder; Major depressive disorder, recurrent episode, moderate (HC)09/15/2025Travel 09/11/2025 10:30 AM CDTPhone Office Visit [facility] [address] [facility] [address] [facility] [address] [place] [phone] Renita Pichardo PsyD, LP Dhzvxggrkxejg45/23/2025 8:58 AM CDT - 09/10/2025 11:59 PM CDTHospital Encounter [facility] [address] [place] [address] Generalized anxiety disorder; Major depressive disorder, recurrent episode, moderate (HC)09/09/2025 8:57 AM CDT - 09/09/2025 11:59 PM CDTHospital Encounter [facility] [address] [place] [address] Generalized anxiety disorder; Major depressive disorder, recurrent episode, moderate (HC)09/09/2025Travel 09/08/2025Telephone [facility] [address] [place] [address] Ivy Garcia RN [facility] [place]09/03/2025 8:54 AM CDT - 09/03/2025 11:59 PM CDTHospital Encounter [facility] [address] [place] [address] Generalized anxiety disorder; Major depressive disorder, recurrent episode, moderate (HC)09/03/2025Travel 09/02/2025 8:57 AM CDT - 09/02/2025 11:59 PM CDTHospital Encounter [facility] [address] [place] [address] Generalized anxiety disorder; Major depressive disorder, recurrent episode, moderate (HC)09/01/2025 9:00 AM CDT - 09/01/2025 11:59 PM CDTHospital Encounter [facility] [address] [place] [address] Generalized anxiety disorder; Major depressive disorder, recurrent episode, moderate (HC)09/01/2025Travel 08/27/2025 9:00 AM CDT - 08/27/2025 11:59 PM CDTHospital Encounter [facility] [address] [place] [address] Generalized anxiety disorder; Major depressive disorder, recurrent episode, moderate (HC)08/27/2025Telephone [facility] [address] [place] [address] Antonina Donovan [facility] [place]08/27/20254448Ycxanj96/08/2025 9:00 AM CDT - 08/26/2025 11:59 PM CDTHospital Encounter [facility] [address] [place] [address] Generalized anxiety disorder; Major depressive disorder, recurrent episode, moderate (HC)08/25/2025 9:00 AM CDT - 08/25/2025 11:59 PM CDTHospital Encounter [facility] [address] [place] [address] Generalized anxiety disorder; Major depressive disorder, recurrent episode, moderate (HC)08/25/2025Travel 08/18/2025 11:20 AM CDTOffice Visit [facility] [address] [place] [address] Fercho Fragoso MD Nausea (Body aches, sob and chills x 1 week and fatigue )08/17/2025 12:26 PM CDT - 08/17/2025 11:59 PM CDTHospital Encounter [facility] [address] [place] [address] Adjustment disorder with anxious mood (Primary Dx); Generalized anxiety disorder; Major depressive disorder, recurrent episode, moderate (HC)08/17/2025Travel 08/14/20250696Shhdfy79/25/2025Telephone [facility] [address] [place] [address] Pcp, No Appointment Ivtyvzkz00/24/2025Telephone [facility] [address] [place] [address] Renita Pichardo, Hen[place], LP Late Cancel Appointmentfrom Last 3 Months Immunizations ImmunizationAdministration DatesNext DueCOVID-19 vaccine (Moderna 100mcg/0.5mL) MD MISTYV101/11/2021Hepatitis B (Adult)03/07/2001,10/31/2000,09/19/2000Hepatitis B (Peds)02/19/2001,10/31/2000,09/19/2000Human Papilloma Virus Ibikvnx0111/08/2007, 06/27/2007,04/26/2007Influenza Virus, Ckuvalzhqvz59/15/2012,08/14/2011, 10/19/2003,09/17/2002,01/22/2002Influenza, IIV3 (Age 6-35 mos)08/14/2011 Influenza, IIV3 (Age >=3 years)09/02/2012,08/14/2011,10/19/2003,09/17/2002, 01/22/2002Influenza, QPX344/06/20192343KZW5604/25/2001,03/07/2001Meningococcal Vaccine (Menactra)04/26/2007Td (Age >=7 Years)07/10/2003Tdap1 Family History Medical HistoryRelationNameCommentsCystic fibrosisBrotherHyperlipidemiaFather HypertensionFatherEndometriosisMaternal AuntCoronary artery diseaseMaternal GrandfatherDiabetesMaternal GrandfatherOtherMaternal Grandfathersubstance abuse dependenceCancer-breastMaternal GrandmotherObesityMaternal GrandmotherOther Maternal Grandmothersubstance abuse dependenceAnxiety disorderMotherDepression MotherEndometriosisMotherHyperlipidemiaMotherHypertensionMotherObesityMother EndometriosisOther 1maternal cousinsCancer-breastOther 2maternal great grandma Cancer-breastOther 3maternal cousinCancer-breastPaternal AuntDementiaPaternal MokawbpaaudVybrgjtgDgvsOdwubpUcnicgutGaypvoaRnzndc0XfdbmcHfstvujc (Age 50) motorcycle accidentMaternal AuntMaternal GrandfatherDeceased (Age 81)Maternal GrandmotherDeceased (Age 63)BREAST CXMotherAliveOther 1Other 2Other 3Paternal AuntPaternal GrandfatherDeceasedPaternal GrandmotherAlive Social History Tobacco UseTypesPacks/DayYears UsedDateSmoking Tobacco: NeverSmokeless Tobacco: Never Tobacco Cessation:Counseling Given: Not Answered Alcohol UseStandard Drinks/WeekCommentsNo0 (1 standard drink = 0.6 oz pure alcohol)PHQ-2AnswerDate RecordedPHQ-2 TOTAL [id number] Connections AnswerDate RecordedFrequency of Communication with Friends and Hqgkzq928 Alcohol UseAnswerDate RecordedHow often do you have a drink containing alcohol?0 03/28/2022verage Number of DrinksNot on file03/28/2022Frequency of Binge DrinkingNot on file03/28/2022Financial Resource StrainAnswerDate Recorded Difficulty of Paying Living Wgqnwssb899ifficulty of Paying Living Xrtwnvsr032/26/2022Food InsecurityAnswerDate RecordedWorried About Running Out of Food in the Last Pbtt926Transportation NeedsAnswerDate RecordedLack of Transportation (Medical)Housing StabilityAnswerDate RecordedUnable to Pay for Housing in the Last Zuad020Interpersonal SafetyAnswerDate RecordedAre you being hit, kicked, pushed or yelled at (see row info)?No 11/21/2023Interpersonal Safety Abuse 12 - 18Not on file11/21/2023Interpersonal Safety Ambulatory VulnerabilityNot on file11/21/2023CommentsNoSex and Gender InformationValueDate RecordedSex Assigned at BirthNot on fileLegal Sex Qyifca7312/02/2012 5:23 AM CSTGender IdentityNot on fileSexual OrientationNot on fileOccupationIndustryJob Start DateJob End DateK-martNot on fileNot on fileNot on file Obstetrics History GravidaParaTermPretermABIABSABEctopicMultipleLivingLive [id number] OutcomeGATotal LaborLabor/2nd/0bvEoormuVoqTmccSixoLLZHaiQ1R3GizcWwhbMrtshukGsbrq Comments:System Generated. Please review and update details.IAB Last Filed Vital Signs Vital SignReadingTime TakenCommentsBlood Ofwvjhvw107/7809 11:44 AM CDT Kdgkc43081/30/2025 11:44 AM GZMUalcoxrawie57.8 ??C (98.2 ??F)08/18/2025 11:44 AM CDTRespiratory Lbpf203911/21/2023 9:09 AM CSTOxygen Lyazrsfgep70%08/18/2025 11:44 AM CDTInhaled Oxygen Concentration--Svratx321.1 kg (234 lb)08/18/2025 11:44 AM SZXZvxbts916.7 cm (5' 8)08/18/2025 11:44 AM CDTBody Mass Index35.58008/18/2025 11:44 AM CDT Plan of Treatment Health MaintenanceDue DateLast DoneCommentsPneumococcal series for age 6-49 (1 of 2 - PCV)02/03/2008Tetanus vepayuu75, 07/10/2003Pap test for age 21-65 (Verified in Care Everywhere or Patient Record), 11/25/2013, 03/03/2011, Additional history existsCOVID-19 vaccine series (2024- season)1, 03/30/2021, 03/02/2021Influenza Vaccine (#1)/06/2019, 09/02/2012, 09/02/2012, Additional history existsBMI (ht and wt on same day) for age 18+, 06/23/2024, 02/15/2023, Additional history existsDepression screening for age 12+61, 08/18/2025, 10/02/2024, Additional history existsHepatitis B series for 19+ Tmuxbqbrk61/19/2001, 02/19/2001, 10/31/2000, Additional history existsHPV series for age 9-00Okvaaihhk48/21/2007, 06/27/2007, 04/26/2007HIV for age 15-65 Vcqsiqyur58/07/2011Hepatitis C screening for age 18-71Tbpzjpfbs13/14/2023 Procedures Procedure NamePriorityDate/TimeAssociated DiagnosisCommentsRED CELL MORPHOLOGY STAT08/18/2025 12:35 PM CDT Myalgia PLATELET PNIIYTXVCUAJ33/30/2025 12:35 PM CDT Myalgia MANUAL WOUNRJDXZAZGWZBB80/30/2025 12:35 PM CDT Myalgia CBC WITH AUTO VWIAUQQPWVXGWJXE10/30/2025 12:35 PM CDT Myalgia C-REACTIVE NTKBSKANPVA62/30/2025 12:35 PM CDT Myalgia CBC WITH AUTO AOMUXAXGPQJGSORV20/30/2025 12:35 PM CDT Myalgia YCODvgzauj97/30/2025 12:35 PM CDT Myalgia ANTI CEKKkvhvsi66/14/2023 1:57 PM CDT Need for hepatitis C screening test STOCK HANGER THIN PREP PAP SCREEN HSVTHJDjridjq72/05/2014 11:15 AM POLYTECHNIC TEACHER Screening for malignant neoplasm of the cervix ANTI HIV 1/5Mayufxs77/07/2011 5:05 PM POLYTECHNIC TEACHER Supervision of normal first (HC) from Last 3 Months or Most Recently Relevant to Health Maintenance Results * (ABNORMAL) CBC WITH AUTO DIFFERENTIAL (08/18/2025 12:35 PM CDT)ComponentValue Ref RangeTest MethodAnalysis TimePerformed AtPathologist SignatureWHITE BLOOD COUNT3.5(L)4.5 - 11.0 thou/cu mm08/18/2025 2:12 PM [facility] LABORATORYRED BLOOD COUNT4.344.00 - 5.20 mil/cu mm08/18/2025 2:12 PM CDT [facility] ODCQKGYDBYDJZCOHPKJQ50.7(L)12.0 - 16.0 g/dL08/18/2025 2:12 PM [facility] SRSBKWZWKVTWAOOMSLAK37.033.0 - 51.0 % 08/18/2025 2:12 PM [facility] FSDGJGFHYGVPJ9826 - 100 fL 08/18/2025 2:12 PM [facility] LQRFUFOVZZFAA55.026.0 - 34.0 pg 08/18/2025 2:12 PM [facility] QGNSOIXLQLXQAL54.532.0 - 36.0 g/dL08/18/2025 2:12 PM [facility] MSSFAXZMAWAPQ79.911.5 - 15.5 %08/18/2025 2:12 PM [facility] LABORATORYPLATELET COUNT 844184 - 440 thou/cu mm08/18/2025 2:12 PM [facility] LABORATORYMPV8.26.5 - 11.0 fL08/18/2025 2:12 PM [facility] LABORATORYSpecimen (Source)Anatomical Location / LateralityCollection Method / VolumeCollection TimeReceived TimeBloodBLOOD SPECIMEN / UnknownQuest Collect / Ebkigmv1408/18/2025 12:35 PM CDT08/18/2025 12:35 PM CDT Narrative Authorizing ProviderResult TypeResult StatusGeorge Néstor Fragoso MDHEMATOLOGY Final ResultPerforming OrganizationAddressCity/State/ZIP CodePhone Number [facility] [address] [place] [address] * (ABNORMAL) RED CELL MORPHOLOGY (08/18/2025 12:35 PM CDT)ComponentValueRef RangeTest MethodAnalysis TimePerformed AtPathologist SignatureELLIPTOCYTESFew 08/18/2025 2:11 PM [facility] LABORATORYPOLYCHROMASIASlight 08/18/2025 2:11 PM [facility] LABORATORYRBC COMMENTPresent(A) RBC morphology appears normal, RBC morphology within normal limits for newborns.08/18/2025 2:11 PM [facility] LABORATORYSpecimen (Source)Anatomical Location / LateralityCollection Method / VolumeCollection TimeReceived TimeBloodBLOOD SPECIMEN / UnknownQuest Collect / Unknown 08/18/2025 12:35 PM CDT08/18/2025 12:35 PM CDT Narrative Authorizing ProviderResult TypeResult StatusFercho Fragoso MDHEMATOLOGY Final ResultPerforming OrganizationAddressCity/State/ZIP CodePhone Number [facility] [address] [place] [address] * PLATELET ESTIMATE (08/18/2025 12:35 PM CDT)ComponentValueRef RangeTest Method Analysis TimePerformed AtPathologist SignaturePLATELET ESTIMATEAdequate Adequate, No empuglzw59/30/2025 2:11 PM [facility] Specimen (Source)Anatomical Location / LateralityCollection Method / Volume Collection TimeReceived TimeBloodBLOOD SPECIMEN / UnknownQuest Collect / Rwcdouz1608/18/2025 12:35 PM CDT08/18/2025 12:35 PM CDT Narrative Authorizing ProviderResult TypeResult StatusFercho Fragoso MDHEMATOLOGY Final ResultPerforming OrganizationAddressCity/State/ZIP CodePhone Number [facility] [address] [place] [address] * (ABNORMAL) MANUAL DIFFERENTIAL (08/18/2025 12:35 PM CDT)ComponentValueRef RangeTest MethodAnalysis TimePerformed AtPathologist Signature% NEUTROPHILS 66.0%08/18/2025 2:11 PM [facility]% LYMPHOCYTES 21.0%08/18/2025 2:11 PM [facility]% MONOCYTES5.0% 08/18/2025 2:11 PM [facility]% EOSINOPHILS5.0% 08/18/2025 2:11 PM [facility]% BASOPHILS1.0% 08/18/2025 2:11 PM [facility]% METAMYELOCYTES2.0 (H)<0.1 %08/18/2025 2:11 PM [facility] LABORATORYNEUTROPHILS ABSOLUTE2.31.7 - 7.0 thou/cu mm08/18/2025 2:11 PM [facility] LABORATORYLYMPHOCYTES ABSOLUTE0.7(L)0.9 - 2.9 thou/cu mm08/18/2025 2:11 PM CDT [facility] LABORATORYMONOCYTES ABSOLUTE0.2<0.9 thou/cu mm 08/18/2025 2:11 PM [facility] LABORATORYEOSINOPHILS ABSOLUTE 0.2<0.5 thou/cu mm08/18/2025 2:11 PM [facility] BASOPHILS ABSOLUTE0.0<0.3 thou/cu mm08/18/2025 2:11 PM [facility] LABORATORYABSOLUTE METAMYELOCYTES0.1(H)<=0.0 thou/cu 08/18/2025 2:11 PM [facility] LABORATORYSpecimen (Source)Anatomical Location / LateralityCollection Method / VolumeCollection TimeReceived TimeBloodBLOOD SPECIMEN / UnknownQuest Collect / Vvbfzsn5008/18/2025 12:35 PM CDT08/18/2025 12:35 PM CDT Narrative Authorizing ProviderResult TypeResult StatusGeorge Néstor Fragoso MDHEMATOLOGY Final ResultPerforming OrganizationAddressCity/State/ZIP CodePhone Number [facility] [address] [place] [address] * TSH (08/18/2025 12:35 PM CDT)ComponentValueRef RangeTest MethodAnalysis Time Performed AtPathologist SignatureTSH0.78mIU/L1 4:44 AM CDTQUEST DIAGNOSTICSComment: ?Reference Range ? > or = 20 Years 0.40-4.50 ? Ranges ?First trimester ?0.26-2.66 ?Second trimester ?? 0.55-2.73 ?Third trimester ?0.43-2.91 Specimen (Source)Anatomical Location / LateralityCollection Method / Volume Collection TimeReceived TimeBloodBLOOD SPECIMEN / UnknownQuest Collect / Unknown 08/18/2025 12:35 PM CDT08/18/2025 12:35 PM CDT Narrative Authorizing ProviderResult TypeResult StatusGeorrajat Fragoso [facility] [place] Final ResultPerforming OrganizationAddressCity/State/ZIP CodePhone Number [employer] [address] [phone], * C-REACTIVE PROTEIN (08/18/2025 12:35 PM CDT)ComponentValueRef RangeTest Method Analysis TimePerformed AtPathologist SignatureC-REACTIVE PROTEIN<0.3<0.5 mg/dL 08/18/2025 1:29 PM [facility] LABORATORYSpecimen (Source) Anatomical Location / LateralityCollection Method / VolumeCollection Time Received TimeBloodBLOOD SPECIMEN / UnknownQuest Collect / Zlzrlol0208/18/2025 12:35 PM CDT08/18/2025 12:35 PM CDT Narrative Authorizing ProviderResult TypeResult StatusGehernandez Fragoso [facility] [place] Final ResultPerforming OrganizationAddressCity/State/ZIP CodePhone Number [facility] [address] [place] [address] * ANTI HCV (08/02/2023 1:57 PM CDT)ComponentValueRef RangeTest MethodAnalysis TimePerformed AtPathologist SignatureHEPATITIS C ANTIBODYNon-Reactive Non-Hwgtzzbb86/15/2023 3:36 PM CDTUNRAINY LAKE MEDICAL [facility] LABORATORYComment:Please note, per www.CDC.gov: If a patient is known to be at high risk of HCV infection, or is symptomatic, and the physician's suspicion of HCV infection is high, HCV RNA testing is often employed and is of diagnostic value, even after an initial negative anti-HCV test result.Specimen (Source)Anatomical Location / LateralityCollection Method / VolumeCollection TimeReceived Time BloodBLOOD SPECIMEN / UnknownVenipuncture / Hlzkniw7108/02/2023 1:57 PM CDT 08/02/2023 1:57 PM CDT Narrative Authorizing ProviderResult TypeResult StatusMackentata Vasquez PASEND OUTS Final ResultPerforming OrganizationAddressCity/State/ZIP CodePhone Number [facility] SENDOUT [place] [address] [id number] [address] [place] [address] * STOCK HANGER THIN PREP PAP SCREEN IMAGED (11/25/2013 11:15 AM POLYTECHNIC TEACHER)ComponentValueRef RangeTest MethodAnalysis TimePerformed AtPathologist SignatureCYTOLOGY CYTOPATHOLOGY REPORT [facility] Status: Final Status ?[id number] CLINICAL INFORMATION Last Date of LMP ? :11/17/13 Last Pap Date ?:03/03/2011 Last Pap Result ?:NIL ABN [place]/Bx Past 5 YRS :None Hormone Usage ?:BCP/OCP/Patch/Ring Menstrual Status ? :Regular Periods [place]/Bx done today ? :No Additional Information :None given HPV Request ?:HPV if ASCUS SPECIMEN SOURCE ?:Cervical/vaginal ThinPrep Vial, screening SPECIMEN ADEQUACY ?:Satisfactory for evaluation Endocervical component ? present. INTERPRETATION/RESULT Negative for intraepithelial lesion or malignancy (NIL) Cytology 1st Screener ??:cam Signed by ?:cam This specimen was screened by the FDA approved ThinPrep Imaging System and manually reviewed. NOTE: ??The Pap test is a screening technique, not a diagnostic procedure. ??It is used ??primarily to screen for squamous cancers and precursor lesions. ??Published studies have shown that it is subject to both false negative and false positive results. ??The pap test should not be used as the sole means to diagnose or exclude pre-malignant and malignant lesions. COLLECTED:11/25/13 ? ACCESSIONED: ??11/26/13 ?? SIGNED: ??12/02/13[facility]ENTERpecimen (Source)Anatomical Location / LateralityCollection Method / VolumeCollection TimeReceived TimeTissue specimen (specimen) (Cervical/Vaginal)11/25/2013 11:15 AM CST11/25/2013 11:12 AM POLYTECHNIC TEACHER Narrative Authorizing ProviderResult TypeResult StatusMarjeremy Sorensen TetzloffPATHOLOGY/CYTOLOGY Final ResultPerforming OrganizationAddressCity/State/ZIP CodePhone Number [facility] INTERNAL ZIP [address] [place] [address] * ANTI HIV 1/2 (12/26/2010 5:05 PM POLYTECHNIC TEACHER)ComponentValueRef RangeTest Method Analysis TimePerformed AtPathologist SignatureANTI HIV 1/2Non-reactive[facility] (Source)Anatomical Location / Laterality Collection Method / VolumeCollection TimeReceived TimeBlood specimen (specimen)BLOOD SPECIMEN / Luutscd6412/26/2010 5:05 PM CST12/26/2010 4:55 PM POLYTECHNIC TEACHER Narrative Authorizing ProviderResult TypeResult StatusLadonna Nathan NPSEND OUTSFinal Result Performing OrganizationAddressCity/State/ZIP CodePhone Number [facility] INTERNAL ZIP [phone] [address] from Last 3 Months or Most Recently Relevant to Health Maintenance Insurance * Guarantor: Natalya Martinez LAccbelinda TypeRelation to PatientDate of BirthPhone Billing AddressPersonal/DrjoywTkdklg89/18/1968 [id number] [place] [address] * Guarantor: [employer] MAICO PXAccount TypeRelation to PatientDate of PhoneBilling AddressOcc Health/UuewQoxurenj45/01/2001 x106 (Home) ATTN: FRANK WHITE [address] [place] [address] Care Teams Team MemberRelationshipSpecialtyStart DateEnd Ermelinda Pierre MD [address] [place] [address] PCP - GeneralFamily Practice06/23/24 Antoinette Palacio, PhD, LP PsychologistPsychology04/24/12 Gracia Rock, BRYAN [address] [place] [address] Consulting PhysicianClinical Nurse Specialist07/07/[address] [place] [address] Registered DietitianRegistered Dietician07/07/22 Staff, Other Clinical . TherapistMagruder Memorial Hospital Health07/03/22
--- OUTSIDE RECORDS SUMMARY | 2025-10-31 16:27 | XMS_ITS | Clinical Summary ---
Author Organization [facility] Address [address] [place] [address] Care Team Providers Care Program Review Director Name Role Phone System, Provider Not In Primary Care Provider Un available Allergies Active AllergyReactionsCriticalityNoted DateCommentsAmoxicillinSwelling 03/01/20172938FveqrihltTrxcshnk34/13/2017Grapefruit ExtractOther (See Comments) 06/28/2021 Interaction with Tasigna medication Interaction with Tasigna medication Medications MedicationSigDispense QuantityRefillsLast FilledStart DateEnd DateStatus prochlorperazine (COMPAZINE) 10 MG tablet Take as mzegje2903/22/2021ctive ondansetron (ZOFRAN) 4 MG tablet Take as otihhj7602/09/2021ctive hydrochlorothiazide (HYDRODIURIL) 25 MG tablet Take 25 mg by mouth daily01/03/2021ctive DULoxetine (CYMBALTA) 60 MG capsule Take 1 Capsule (60 mg) by mouth once daily. Take along with the 30mg cap for a total daily dose of 90mg daily03/28/2022ctive dasatinib (SPRYCEL) 100 MG tablet Take 100 mg by mouth daily Will increase to 140 MG in 1 week03/15/2022ctive dasatinib (SPRYCEL) 140 MG tablet Take 1 tablet (140 mg total) by mouth daily. Take with or without food at the same time each day. Swallow whole. Do not break, cut, or crush.05/26/2022ctive DULoxetine (CYMBALTA) 30 MG capsule Take 1 Capsule (30 mg) by mouth once daily. Take along with the 60mg cap for a total daily dose of 90mg daily01/19/2023ctiveHospital, Clinic, or Other Facility Administered MedicationOrdered DoseRouteFrequencyStart DateEnd Date Status botulinum toxin type A (BOTOX) 100 units injection 200 Units Indications:Chronic migraine without aura, intractable, without status afqsionfflb548 UnitsIMEVERY 3 FSQQBV49ctive Social History Tobacco UseTypesPacks/DayYears UsedDateSmoking Tobacco: NeverSmokeless Tobacco: Never Tobacco Cessation:Counseling Given: Not Answered PHQ-2AnswerDate RecordedPHQ-2 Cwlfs983dolescent EducationAnswerDate RecordedGetting School Help NeededNot on file08/11/2023CommentsUnknown Sex and Gender InformationValueDate RecordedSex Assigned at BirthNot on file Legal IvdJvueiw58/22/2022 12:12 PM CDTGender IdentityNot on fileSexual OrientationNot on file Last Filed Vital Signs Vital SignReadingTime TakenCommentsBlood Fjsypvhc742/8104 2:36 PM CDT Xcfhs65436 2:36 PM CDTTemperature--Respiratory Rate--Oxygen Saturation-- Inhaled Oxygen Concentration--Weight--Height--Body Mass Index-- Plan of Treatment Not on file Insurance Care Teams Team MemberRelationshipSpecialtyStart DateEnd Date System, Provider Not In PCP - Generalinic06/08/22
[2025-10-31 16:37] VITALS: BP 117/82; PULSE 86; RESP 18; TEMP 36.3; O2SAT 96; BMI 35.7
--- NOTE | 2025-10-31 18:47 | ED.GENADULT ---
HPI - General Adult General Chief complaint: Abdominal Pain Stated complaint: L abd pain, nauseous Time Seen by Provider: 10/31/25 18:36 Source: patient Mode of arrival: ambulatory Limitations: no limitations History of Present Illness HPI narrative: 35-year-old female presenting today with abdominal pain. Pain is located in the left lower quadrant. This is chronic pain the patient has had for years. She was recently at [facility] for another workup for this. She had a CT scan in the last couple of days as well as lab work. She was diagnosed with a UTI and sent home with antibiotics. She is on chronic Dilaudid 2 mg every 6 hours, duloxetine, hydroxyzine, and a buprenorphine patch for chronic pain. No fevers. Her pain has not changed at all. Related Data Home Medications ?Medication ?Instructions ?Recorded ?Confirmed duloxetine 60 mg capsule,delayed 60 mg PO BID 08/06/22 10/27/25 release acyclovir 400 mg tablet 400 mg PO BID 05/31/25 10/27/25 aripiprazole 10 mg tablet 10 mg PO DAILY 05/31/25 10/27/25 buprenorphine 5 mcg/hour weekly 1 patch topical Q7D chronic pain 05/31/25 09/30/25 transdermal patch pantoprazole 40 mg tablet,delayed 40 mg PO BID 05/31/25 10/27/25 release penicillin V potassium 500 mg 500 mg PO BID 05/31/25 10/27/25 tablet posaconazole 100 mg tablet,delayed 100 mg PO TID 05/31/25 10/27/25 release cyclobenzaprine 5 mg tablet mg PO 07/19/25 09/30/25 Held on 08/21/25. Instructions: out hydromorphone 2 mg tablet PO 07/19/25 09/30/25 hydroxyzine HCl 25 mg tablet mg PO 07/19/25 09/30/25 prochlorperazine maleate 10 mg 10 mg PO Q6H PRN 07/19/25 09/30/25 tablet sulfamethoxazole 400 1 tab PO QDAY 09/30/25 10/27/25 mg-trimethoprim 80 mg tablet (Bactrim) Previous Rx's ?Medication ?Instructions ?Recorded cyclobenzaprine 10 mg tablet 10 mg PO HS PRN insomnia #14 tabs 07/02/25 Held on 08/21/25. Instructions: out hydroxyzine pamoate 25 mg capsule 25 mg PO TID PRN Pain medication 07/02/25 enhancement #30 caps Allergies Allergy/AdvReac Type Severity Reaction Status Date / Time grapefruit Allergy Intermediate other Verified 10/27/25 15:02 amoxicillin Allergy Mild other Verified 10/27/25 15:02 bupropion (From Wellbutrin) Allergy Mild Hives Verified 10/27/25 15:02 [facility] Closed fracture of radius ?S52.90XA - Unspecified fracture of unspecified forearm, initial encounter for closed fracture (ICD-10) Depression ?F32.A - Depression, unspecified (ICD-10) Violation of controlled substance agreement ?Z91.148 - Patient's other noncompliance with medication regimen for other reason (ICD-10) Obesity ?E66.9 - Obesity, unspecified (ICD-10) Disorder of eye movements ?H51.9 - Unspecified disorder of binocular movement (ICD-10) Sciatica ?M54.30 - Sciatica, unspecified side (ICD-10) Neuropathy ?G62.9 - Polyneuropathy, unspecified (ICD-10) Migraines ?G43.909 - Migraine, unspecified, not intractable, without status migrainosus (ICD-10) Irritable bowel ?K58.9 - Irritable bowel syndrome, unspecified (ICD-10) Fibromyalgia ?M79.7 - Fibromyalgia (ICD-10) Anxiety ?F41.9 - Anxiety disorder, unspecified (ICD-10) Chronic myeloid leukemia (CML), BCR/ABL1-positive, in remission ?C92.11 - Chronic myeloid leukemia, BCR/ABL-positive, in remission (ICD-10) Surgical History History of eye surgery ?Z98.890 - Other specified postprocedural states (ICD-10) History of dilation and curettage ?Z98.890 - Other specified postprocedural states (ICD-10) History of bone marrow biopsy ?Z98.890 - Other specified postprocedural states (ICD-10) Social History Smoking Status: Never smoker Do you use any of these nicotine containing products: None Second hand tobacco smoke exposure: No How often do you have a drink containing alcohol: never How often do you have six or more drinks on one occasion: Never AUDIT-C Alcohol total score: 0 Non-prescribed substance use: denies use service: No Exam Const: Vital Signs, click to edit/add: Vital Signs - 24 hr 10/31/25 16:37 10/31/25 19:14 Temperature 97.3 F L Pulse Rate [Right Pulse Oximeter] 86 85 Respiratory Rate 18 16 Blood Pressure [Ri ght Upper Arm] 117/82 119/87 Pulse Oximetry 96 95 Oxygen Delivery Me thod Room Air Room Air Course Course ED Course: Had a long discussion with the patient that she is already on Dilaudid and buprenorphine. She is seeing a pain clinic. I do not think that she needs a home another workup for pain and she has had for so long. I think that doing another CT scan would not be beneficial and the risk would outweigh the benefit at this time. Patient is understanding of all this and does not wish to have any further workup done at this time. We discussed what else she can do for pain management. She states that oral Toradol does not work, she has tried lidocaine patches. She has had multiple rounds of narcotics. At this time I did give her 1 dose of Vistaril and 1 dose of IV Toradol. She states that the treatment did take her pain down ?a notch? and make it more tolerable. Discussed that she should follow up with her pain management team and discuss her Dilaudid dosing. Patient feels comfortable with this plan and had no other questions. Vital Signs Vital signs: Initial Vital Signs Temperature 97.3 F L 10/31/25 16:37 Temperature Source Temporal Artery Scan 10/31/25 16:37 Pulse Rate 86 10/31/25 16:37 Respiratory Rate 18 10/31/25 16:37 Blood Pressure 117/82 10/31/25 16:37 Blood Pressure Mean 93 10/31/25 16:37 Blood Pressure Position Sitting 10/31/25 16:37 Pulse Oximetry 96 10/31/25 16:37 Oxygen Delivery Method Room Air 10/31/25 16:37 Vital Signs Temperature 97.3 F L 10/31/25 16:37 Pulse Rate 86 10/31/25 16:37 Respiratory Rate 18 10/31/25 16:37 Blood Pressure 117/82 10/31/25 16:37 Pulse Oximetry 96 10/31/25 16:37 Oxygen Delivery Method Room Air 10/31/25 16:37 Temperature 97.3 F L 10/31/25 16:37 Pulse Rate 85 10/31/25 19:14 Respiratory Rate 16 10/31/25 19:14 Blood Pressure 119/87 10/31/25 19:14 Pulse Oximetry 95 10/31/25 19:14 Oxygen Delivery Method Room Air 10/31/25 19:14 Medications Administered Medications: Discontinued Medications Generic Name Dose Route Start Last Admin Trade Name Freq PRN Reason Stop Dose Admin Hydroxyzine Pamoate 25 mg 10/31/25 18:45 10/31/25 19:12 Hydroxyzine Pamoate 25 Mg Capsule PO 10/31/25 18:46 25 mg ONCE ONE Administration Ketorolac Tromethamine 30 mg 10/31/25 18:45 10/31/25 19:12 Ketorolac 30 Mg/Ml Inj IVP 10/31/25 18:46 30 mg ONCE ONE Administration Medical Decision Making MDM Narrative Medical decision making narrative: 35-year-old female with a chronic abdominal pain. Patient will follow-up with pain management. Discharge Plan Discharge Clinical Impression: Chronic abdominal pain Patient Disposition: Home, Self-Care Condition: Stable Additional Instructions: Follow-up with your pain management team to discuss your medication dosing and next steps. Prescriptions: No Action sulfamethoxazole-trimethoprim [Bactrim] 400-80 mg tablet 1 tab PO QDAY duloxetine 60 mg capsule,delayed release(DR/EC) 60 mg PO BID acyclovir 400 mg tablet 400 mg PO BID aripiprazole 10 mg tablet 10 mg PO DAILY buprenorphine 5 mcg/hour patch weekly 1 patch topical Q7D penicillin V potassium 500 mg tablet 500 mg PO BID pantoprazole 40 mg tablet,delayed release (DR/EC) 40 mg PO BID posaconazole 100 mg tablet,delayed release (DR/EC) 100 mg PO TID hydromorphone 2 mg tablet PO hydroxyzine HCl 25 mg tablet PO cyclobenzaprine 5 mg tablet PO prochlorperazine maleate 10 mg tablet 10 mg PO Q6H PRN hydroxyzine pamoate 25 mg capsule 25 mg PO TID PRN (Reason: Pain medication enhancement) Qty: 30 1RF cyclobenzaprine 10 mg tablet 10 mg PO HS PRN (Reason: insomnia) Qty: 14 0RF Follow Up/Referrals: Anny Matthews NP [Primary Care Provider, Family Practice] Stand Alone Forms: [employer] Info Instructions
--- OUTSIDE RECORDS SUMMARY | 2025-10-31 18:53 | XMS_ITS | Encounter Summary ---
Author Organization [facility] Address [address] [place] [address] Care Team Providers Care Motion Picture Photographer Name Role Phone Renzo Andres M.D. Primary Care Provider [phone] Reason for Visit * ReasonCommentsMed Refill Encounter Details DateTypeDepartmentCare Team (Latest Contact Info)Kftnticdcml75/28/2025Refill [facility], Tenth Floor [address] [place] [address] Jessica Avila, KARON, C.N.P., M.S.N. [address] [place] [address] Med Refill Social History Tobacco UseTypesPacks/DayYears UsedDateSmoking Tobacco: NeverSmokeless Tobacco: NeverAlcohol UseStandard Drinks/WeekCommentsNot Currently0 (1 standard drink = 0.6 oz pure [...] before you got the money to buymore.Patient bqlynmgd37/25/2025Within the past 12 months, the food you [...] RecordedIn the past 12 months has the [employer], gas, oil, or water [employer] threatened to shut off services in your home?Patient gxxcfnyb97/25/2025Postpartum DepressionAnswerDate RecordedPHQ- 9 Total Score (max 27)12007/08/2025Housing StabilityAnswerDate RecordedWhat is your living situation today?I have a steady place to live08/13/2025Education AnswerDate RecordedWhat is the highest level of school you have completed or the highest degree you have received?Some college, no oxuhjh8904/24/2019 CommentsNoSex and Gender InformationValueDate RecordedSex Assigned at Giijmc2412/26/2018 8:37 PM CSTLegal FkiMzjlsk13/02/2017 2:43 PM CSTGender Identity Qtxwph4412/26/2018 8:37 PM CSTSexual OrientationChoose not to sdsbmhif54/17/2021 3:46 PM CDTdocumented as of this encounter Plan of Treatment DateTypeDepartmentCare Team (Latest Contact Info)Ngdynzcczdm66/29/2025 9:00 AM CSTOffice Visit Department of Obstetrics and Gynecology in [place], [place] [address] [place] [phone] Alice Linares M.D. [address] [place] [phone] 12/04/2025 1:30 PM CSTClinical Communication Virtual Review in [place], [place] [address] [place] [phone] 12/07/2025 8:10 AM CSTLab Department of Laboratory Medicine and Pathology, [facility], in [place], [place] [address] [place] [phone] Jessica Rousseau M.B.B.S. [address] [place] [phone] 12/07/2025 9:15 AM CSTAppointment Outpatient Procedure Center in [place], [place] [address] [place] [phone] Jessica Rousseau M.B.B.S. [address] [place] [phone] 12/07/2025 11:00 AM CSTDiagnostic Division of Pulmonary Medicine in [place], [place] [address] [place] [phone] Jessica Rousseau M.B.B.S. [address] [place] [phone] 12/07/2025 1:00 PM CSTOffice Visit [facility] in [place], [place] [address] [place] [phone] Jessica Rousseau M.B.B.S. [address] [place] [phone] 12/07/2025 1:30 PM CSTNurse Only [facility] Transplantation [facility] Clinical [facility] in [place], [place] [address] [place] [phone] Jessica Rousseau M.B.B.S. [address] [place] [phone] 12/07/2025 2:00 PM CSTOffice Visit [facility] Trans[facility] in [place], [place] [address] [place] [phone] Jessica Rousseau M.B.B.S. [address] [place] [phone] 12/07/2025 3:00 PM CSTOffice Visit Department of Palliative Care in [place], [place] [address] [place] [phone] Martine Pardo B.M.B.S., B.M., B.Ch. [address] [place] [phone] documented as of this encounter Visit Diagnoses Not on filedocumented in this encounter Additional Health Concerns InfectionOnset DateLast IndicatedResolved TimeProtective Hzojknuiskh54/14/2023 8601PVMGX76 Ukxytxr06 12:51 PM CDTAssessment Noted TimePHQ-9 Depression Total Score: 9:42 AM CDTdocumented as of this encounter Care Teams Team MemberRelationshipSpecialtyStart DateEnd Date Renzo Andres M.D. [address] [place] [address] [place] [phone] PCP - GeneralFamily Medicine04/2505/2312documented as of this encounter
--- OUTSIDE RECORDS SUMMARY | 2025-10-31 18:54 | XMS_ITS ---
Author Organization [facility] Address [address] [place] [address] Care Team Providers Care Commercial Solar Sales Consultant Name Role Phone Elsewhere, Pcp Primary Care Provider Unavailabl e Active Problems * This document contains information [...] RSV: MMR: Local Lab/Provider: Dr. [place] [address] ProblemNoted DateDiagnosed DateAcute Cystitis Without Iovscoscj32/12/2025 Palliative Care08/11/2025Pain Left Lower Kxrwkqkd29/14/2025bdominal Pain 06/12/2025Nausea And Wwktqbsb14/10/2025Pain Xsrxfgzroxq94/03/2025Depressive Fgvdzhks74/03/2025Transplant Stem Cell04/21/20255474Iqwuejmdlz51/22/2025Transplant Bone Marrow Gwzehbnabt46/14/2025Reaction Drug Adverse Personal Zciovgx0711/07/2024 Leukemia Myeloid Chronic BCR/ABL Positive Hfzgsxwoi88/31/2024Insulin Resistance, Qxopeavvhhv55/02/2022Eating Zpaitwze42/19/2022nxiety Generalized Disorder 08/14/2019Chronic Ztlqowhq34/30/2019Leukemia Myeloid Chronic BCR/ABL Positive Not Having Achieved Nqxiaietn70/23/2019 Cancer Staging: Clinical: Unsigned Adjustment Disorder With Anxious Mood01/07/2015DizzinessDepression Major Recurrent Moderate Current Treatment and Therapy Plans Allogeneic Blood and Marrow Transplant* Plan Start Date:12/05/2024 Plan Provider:Tiffani Leroy APRN, C.N.P., D.N.P. Linked Problems Leukemia Myeloid Chronic BCR /ABL Positive Remission (HCC)Transplant Bone Marrow Allogeneic (HCC) Treatment Medications No medications scheduled. Hydration* Plan Start Date:10/30/2025 Plan Provider:Meghan Osorio M.D. Linked Problems Acute Cystitis Without Hemat uriaLeukemia Myeloid Chronic BCR/ABL Positive Not Having Achieved Remission (HCC) Treatment Medications No medications scheduled. Vascular Access Patency - Central Venous Catheter (CVC) Tunneled Non-Valved* Plan Start Date:12/08/2024 Linked Problems Leukemia Myeloid Chronic BCR /ABL Positive Not Having Achieved Remission (HCC) Treatment Medications No medications scheduled. Past Treatment and Therapy Plans Plan NameStart DateDiscontinue DateTreatment MedicationsDiscontinue ReasonPlan ProviderConditional Blood Administration - Platelets - For patients weighing greater than 35 kg - (Units)?Hem Onc / BMT Only12/02//No medications scheduled.Therapy Tiffani Mortensen APRN, C.N.P., D.N.P.Plan NameStart DateDiscontinue DateTreatment MedicationsDiscontinue ReasonPlan ProviderConditional Blood Administration - Red Blood Cells (RBC) For patients weighing greater than 35 kg (units) Hem Onc / BMT Only/No medications scheduled.Therapy Tiffani Mortensen APRN, C.N.P., D.N.P.Plan NameStart DateDiscontinue DateTreatment MedicationsDiscontinue ReasonPlan ProviderCyclesFludarabine / Busulfan 130 mg/m2 (Daily) Myeloablative Conditioning/02/2025* busulfan (Busulfex) IVPB in 1000 mL (Busulfex) * busulfan (Busulfex) IVPB in 500 mL (Busulfex) * fludarabine (Fludara) IVPB (Fludara) Therapy Jessica Meeks M.B.B.S.1 of 1 cycle startedImatinib ( Myeloid- Myeloproliferative )* imatinib (Gleevec) Therapy Tone Zepeda M.B.B.S.1 of 6 cycles plannedPlan NameStart DateDiscontinue DateTreatment MedicationsDiscontinue ReasonPlan ProviderCycles GVHD Prophylaxis: Post-transplant cycloPHOSphamide / Mesna / Mycophenolate / Tacrolimus/02/2025* cycloPHOSphamide (Cytoxan) IVPB in 350 mL (1 g vial) (Cytoxan) * mesna (Mesnex) IVPB (24 HOURS) (Mesnex) Therapy Jessica Meeks M.B.B.S.1 (2 of 2 cycles) startedGVHD Prophylaxis: Post-transplant cycloPHOSphamide / Mesna / Tacrolimus / Abatacept /* cycloPHOSphamide (Cytoxan) UnlistedJessica Rousseau M.B.B.SKatalinaTreatment not startedPlan NameStart Date Discontinue DateTreatment MedicationsDiscontinue ReasonPlan ProviderHydration /01/2025No medications scheduled.Therapy Arlen Garland APRN C.N.P., D.N.P.leuprolide (LUPRON)/02/2025No medications scheduled. Therapy Jessica Meeks M.B.B.SKatalinaLEUPROLIDE (LUPRON)/ medications scheduled.Therapy Stephen Blum M.B.B.SKatalinaMEDICATION AT INFUSION THERAPY/ medications scheduled.Therapy Complete Kristin Fernandez R.N.Plan NameStart DateDiscontinue DateTreatment MedicationsDiscontinue ReasonPlan Providerelectrolyte administration01/16/2025 01/16/2025No medications scheduled.Therapy Carlee Schulte APRN, C.N.P., D.N.P., M.S.N.electrolyte administration/No medications scheduled.Therapy Carlee Schulte APRN C.N.P., D.N.P., M.S.N. pentamidine (NEBUPENT) Inhaled/10/2025No medications scheduled.Therapy Jessica Meeks M.B.B.S.LEUPROLIDE (LUPRON)/No medications scheduled.Therapy Stefan Rivas APRN, C.N.P.LEUPROLIDE (LUPRON) AT INFUSION CENTER & LEUPROLIDE (LUPRON)/04/2019No medications scheduled.Therapy Stefan Rivas APRN C.N.PKatalinaPlan NameStart Date Discontinue DateTreatment MedicationsDiscontinue ReasonPlan Providerelectrolyte administration/No medications scheduled.Therapy Complete Carlee Armas APRN C.N.PKatalina, DeniseNKatalinaPKatalina, M.S.N. Cellular Therapy * Episode NameEpisode StatusTransplant/Infusion DateTransplant/Infusion Center Donor InformationAcute GVHDChronic GVHDContactAllo PBSC TxpActiveDay 325 (12/10/24)[facility]* Match Grade: 8/8 * HLA DP Match: Permissive Mismatch * Latest: Not documented * Max: Not documented * Latest: Not documented * Max: Not documented Nitesh GodoyB.S.* * * Email: [email or web address] * WhenVisit GyoxLomyCjytensaalp86/08/2025ppointmentTXP BMT - Jacquelin, K Transplant Stem Cell (HCC) (Primary Dx); Leukemia Myeloid Chronic BCR/ABL Positive Remission (HCC);Nausea And Vomiting 10/30/2025ppointmentTXP BMT - Gu, YTransplant Bone Marrow Allogeneic (HCC) (Primary Dx); Leukemia Myeloid Chronic BCR/ABL Positive Remission (HCC) 11/02/2025ppointmentTXP BMTCanceled (Clinic: Scheduling Error) Lifetime Dose Tracking * ChemicalLifetime DoseAutomatic EntryManual EntryRadiation8.93 mGy8.93 mGy0 mGy Fluoro Time1.5 minutes1.5 minutes0 minutes Resolved Problems ProblemNoted DateDiagnosed DateResolved UykpOzdrfztmz51/31/202507/08/2025 Encounter Admission For Pouhmfpfhait92/24/202501/Pain Bone09/20/2020 12/10/2024Pain Pnsjxqkzkd09Gastroesophageal Reflux Disease Sore Throat Bemzoev43Localized Enlarged Lymph NodesPain In Joint5Anemia12/17/2018 09/17/2019Thrombocytosis Ikwkxmbpzuh09Leukocytosis12/17/2018 04/03/2019Leukemia Myeloid Chronic BCR/ABL Positive Not Having Achieved Bcvstoeyn41Depression Ieasvlz554Constipation Counseling Fertility Preservation Pre Cancer Therapy
--- OUTSIDE RECORDS SUMMARY | 2025-10-31 18:54 | XMS_ITS | Clinical Summary ---
Author Organization [facility] Address [address] [place] [address] Care Team Providers Care Windows Server Specialist Name Role Phone Elsewhere, Pcp Primary Care Provider Unavailabl e Source Comments Patient records contain information from all sites at [facility]. For routine questions regarding patient records, call [phone] during business hours, M-F 8:00 AM - 5:00 PM Central Time. Record requests for emergency care only can be directed to [phone] at any time.[facility] Allergies Active AllergyReactionsCriticalityNoted DateCommentsBupropionEdema (Reselect Reaction)03/01/2017GrapefruitOther (see comments)06/28/2021 Drug-drug interaction with Bosulif (bosutinib); This had also been noted w/ prior therapy which patient is no longer taking (Tasigna (nilotinib)). OxycodoneGI ilmlltnmjeuDlta74/18/2025 Severe nausea Medications * This document contains information received from the source organization and may not represent a complete record from that organization. MedicationSigDispense QuantityRefillsLast FilledStart DateEnd DateStatus cholecalciferol (Vitamin D3) 50 mcg (2,000 Unit) tablet Take 50 mcg by mouth daily.Active ARIPiprazole (Abilify) 10 mg tablet Take 1 tablet (10 mg total) by mouth daily. 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 60 tablet 1115Active Additional Information Patient taking differently:500 mg oral 2 times daily,Hold when taking Cefdinir, resume on 11/06/25 after complete with Cefdinir., Reported on 10/30/2025 buprenorphine (Butrans) 5 mcg/hour Indications:Chronic Pain/Nonacute PainPlace 1 patch on the skin once a week Indication: Chronic Pain/Nonacute Pain. 4 patch 5Active HYDROmorphone (Dilaudid) 2 mg tablet Indications:Acute PainTake 1 tablet (2 mg total) by mouth every 3 (three) hours as needed for pain for up to 2 days Indication: Acute Pain. 12 tablet 5Active metoclopramide (Reglan) 10 mg tablet Take 1 tablet (10 mg total) by mouth 4 (four) times a day before meals and bedtime. 40 tablet /5Active cefdinir (Omnicef) 300 mg capsule Indications:PyuriaTake 1 capsule (300 mg total) by mouth 2 (two) times a day before morning and evening meals for 7 days. 14 capsule /5Active carboxymethylcellulose (Refresh Plus) 0.5 % ophthalmic solution Administer 1 drop into both eyes 3 (three) times a day as needed for dry eyes. Active naloxone (Narcan) 4 mg/actuation nasal spray Spring one device into nostril upon signs of opioid overdose. Call 911. Repeat with second device inthe other nostril if no response within 2-3 minutes. Use 1 spray in 1 nostril. Repeat with second device in other nostril after 2-3 minutes if no or minimal response. 2 each 5Active naloxone (Narcan) 4 mg/actuation nasal spray Administer 1 spray (4 mg total) into nostril(s) once for 1 dose. Use 1 spray in 1 nostril. Repeat with second device in other nostril after 2-3 minutes if no or minimal response. 2 each Discontinued(Duplicate order) ondansetron ODT (Zofran-ODT) 4 mg disintegrating tablet Dissolve 1-2 tablets (4-8 mg total) in the mouth every 8 (eight) hours as needed for nausea or vomiting. 20 tablet Discontinued(Therapy Ineffective) prochlorperazine (Compazine) 10 mg tablet Take 1 tablet (10 mg total) by mouth every 6 (six) hours as needed for nausea. 30 tablet Discontinued(Therapy completed) alum-mag hydroxide-simeth (Maalox) 200-200-20 mg/5 mL suspension Take 30 mL by mouth every 4 (four) hours as needed for indigestion (dyspepsia). 354 mL Discontinued(Therapy completed) hydrOXYzine (Atarax) 25 mg tablet Indications:AnxietyTake 1-2 tablets (25-50 mg total) by mouth every 6 (six) hours as needed for anxiety. 60 tablet /10/2025Discontinued(Therapy completed) pantoprazole (Protonix) 40 mg EC tablet Take 40 mg by mouth 2 (two) times a day before morning and evening meals. Discontinued OLANZapine (ZyPREXA) 5 mg tablet Take 1 tablet (5 mg total) by mouth once for 1 dose. 1 tablet /06/2025Discontinued gabapentin (Neurontin) 300 mg capsule Take 1 capsule (300 mg total) by mouth 2 (two) times a day. 180 capsule Discontinued buprenorphine (Butrans) 5 mcg/hour Indications:Chronic Pain/Nonacute PainPlace 1 patch on the skin once a week Indication: Chronic Pain/Nonacute Pain. 4 patch /Discontinued(Reorder) granisetron (KytriL) 1 mg tablet Indications:Nausea And VomitingTake 1 tablet (1 mg total) by mouth daily as needed for nausea or vomiting. 20 tablet Discontinued(Therapy completed) naloxone (Narcan) 4 mg/actuation nasal spray Spring one device into nostril upon signs of opioid overdose. Call 911. Repeat with second device inthe other nostril if no response within 2-3 minutes. Use 1 spray in 1 nostril. Repeat with second device in other nostril after 2-3 minutes if no or minimal response. 2 each /Discontinued(Reorder) nitrofurantoin monohydrate (Macrobid) 100 mg capsule Indications:PyuriaTake 1 capsule (100 mg total) by mouth 2 (two) times a day for 7 days. 14 capsule /10/2025Discontinued Active Problems Patient Care Coordination No te [...] RSV: MMR: Local Lab/Provider: [place] [address] ProblemNoted DateDiagnosed DateAcute Cystitis Without Qgeselpqr07/12/2025 Palliative Care08/11/2025Pain Left Lower Knzvmfgx82/14/2025bdominal Pain 06/12/2025Nausea And Gulvvdyi04/10/2025Pain Kprhgvsqrww93/03/2025Depressive Hmemledx94/03/2025Transplant Stem Cell04/21/20257318Jqeburkrzc46/22/2025Transplant Bone Marrow Tsepxqccyf34/14/2025Reaction Drug Adverse Personal Fnwttvb8211/07/2024 Leukemia Myeloid Chronic BCR/ABL Positive Ajhbvwabs22/31/2024Insulin Resistance, Cksflsjxnoc62/02/2022Eating Tirqmuuj00/19/2022nxiety Generalized Disorder 08/14/2019Chronic Afnqjwak97/30/2019Leukemia Myeloid Chronic BCR/ABL Positive Not Having Achieved Mqsatjrzy75/23/2019 Cancer Staging: Clinical: Unsigned Adjustment Disorder With Anxious Mood01/07/2015DizzinessDepression Major Recurrent Moderate Resolved Problems ProblemNoted DateDiagnosed DateResolved QdpeNlkuoiaes52 Encounter Admission For Rdgiymjtoiiv83/24/202501/Pain Bone09/20/2020 12/10/2024Pain Nwsoasemhj36Gastroesophageal Reflux Disease Sore Throat Qlcedzc55Localized Enlarged Lymph NodesPain In Jointnemia12/17/2018 09/17/2019Thrombocytosis Wwbybdidmse58Leukocytosis12/17/2018 04/03/2019Leukemia Myeloid Chronic BCR/ABL Positive Not Having Achieved Hzdqqbkjz08Depression Jlskrkg07/4Constipation Counseling Fertility Preservation Pre Cancer Therapy Encounters DateTypeDepartmentCare FhjdTyihfnjmlvr90/13/2025Clinical Communication [facility], Ninth Floor [address] [place] [address] Aishwarya Quintana, R.N. 10/31/2025Orders Only [facility], [address] Floor [address] [place] [address] Racquel Candelario, BUYER INTERN, C.N.P. 10/30/2025 10:00 AM CSTClinical Support Department of Palliative Care in [place], [place] [address] [place] [phone] Meghan Osorio M.D. Hicks, Hillary K, R.N., CHPN Nausea And Vomiting (Primary Dx)10/30/2025 9:00 AM CSTOffice Visit Department of Palliative Care in [place], [place] [address] [place] [phone] Meghan Osorio M.D. 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 Lito Pollock P.A.-C. 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 5Clinical Communication Department of Obstetrics and Gynecology in [place], [place] [address] [place] [phone] Prescheduling, Provider Treatment Plan Review (ED follow up )10/29/2025 2:15 PM TRAINING MANAGER - 10/30/2025 2:51 AM CSTEmergency [facility] Emergency Department [address] [place] [phone] Sean Beard M.D. Jones, Derick D, M.D., M.B.A. Lower Abdominal Pain Unspecified (Primary Dx); Pain Back; Pyuria; Adenomyosis Discharge Disposition: Home or Self Care5Clinical Communication [facility] in [place], [place] [address] [place] [phone] Jessica Rousseau M.B.B.S. Communication (Having a hard time with all her symptoms )5Clinical Communication Department of Palliative Care in [place], [place] [address] [place] [address] Felicia Watt APRN, C.N.P., M.S.N. Nurse Ujcnyhdrsv60/10/2025linical Communication [facility] Transplantation and Clinical Regeneration in [place], [place] [address] [place] [address] Jessica Rousseau M.B.B.S. 10/27/2025Orders Only [facility] Transplantation and Clinical Regeneration in [place], [place] [address] [place] [phone] Devi Roper APRN, C.N.P., D.N.P. 10/26/2025 2:40 PM TRAINING MANAGER - 10/26/2025 6:09 PM CSTHospital Encounter [facility], Ninth Floor [address] [place] [address] Devi Roper APRN, C.N.P., D.N.P. 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 Transplant Bone Marrow Allogeneic (HCC) (Primary Dx)5Clinical Communication [facility] Transplantation and Clinical Regeneration in [place], [place] [address] [place] [phone] Jessica Rousseau M.B.B.S. 5Clinical Communication [facility] in [place], [place] [address] [place] [phone] Jessica Rousseau M.B.B.S. Communication (Sick )5Clinical Communication Department of Family Medicine, [facility], in [place], [place] [address] [place] [phone] Gabby De Anda R.N. Quality (HCC Management/)10/13/2025 11:20 AM CSTNurse Only Section of Infectious Diseases in [place], [place] [address] [place] [phone] Pato Sanchez M.D., Ph.D. Jennifer Marx R.N. Ablxmxpsyizxi90/23/2025Refill Department of Palliative Care in [place], [place] [address] [place] [phone] Felicia Watt APRN, C.N.P., M.S.N. Med Bpdkul3609/30/2025 8:41 AM TRAINING MANAGER - 09/30/2025 11:59 PM CSTHospital Encounter Department of Laboratory Medicine in [place], [place] [address] [place] [phone] Jessica Rousseau M.B.B.S. 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 5Clinical Communication [facility] Trans[facility] Clinical [facility]eneration in [place], [place] [address] [place] [phone] Jessica Rousseau M.B.B.S. Symptom Zcyyzrcjsi70/12/2025Clinical Communication [facility] Transplantation and Clinical Regeneration in [place], [place] [address] [place] [phone] Arely Taylor R.N. Lab Monitoring (09/30/25)5Clinical Communication [facility] Transplantation and Clinical Regeneration in [place], [place] [address] [place] [phone] Transplant, Coordinator, RKatalinaN. Sinmqiwtdigiv83/10/2025Clinical Communication Section of Infectious Diseases in [place], [place] [address] [place] [phone] David Alvarado R.N. Prescreen Immunization Tgsbpv0609/24/2025Refill [facility] Transplantation and Clinical Regeneration in [place], [place] [address] [place] [phone] Jessica Rousseau M.B.B.S. Med Ymlpml6109/22/2025Orders Only [facility] SEMN PCP [facility] Renzo Andres M.D. 5Clinical Communication Division of Hematology in [place], [place] [address] [place] [phone] Jessica Rousseau M.B.B.S. 09/03/2025Refill Department of Palliative Care in [place], [place] [address] [place] [phone] Meghan Osorio M.D. Med Lqzcjd375Clinical Communication [facility] Transplantation and Clinical Regeneration in [place], [place] [address] [place] [address] Jessica Rousseau M.B.B.S. 08/31/2025Refill [facility] for Transplantation and Clinical Regeneration in [place], [place] [address] [place] [address] Jessica Rousseau M.B.B.S. Med Mbrmaw645Clinical Communication [facility] Transplantation and Clinical Regeneration in [place], [place] [address] [place] [phone] Geo Aguilar D.O. 08/18/2025Orders Only [facility] Transplantation and Clinical Regeneration in [place], [place] [address] [place] [phone] Jessica Rousseau M.B.BKatalinaS. 5Clinical Communication [facility] Transplantation and Clinical Regeneration in [place], [place] [address] [place] [phone] Jessica Rousseau M.B.B.S. Phone Contact (Lab results)5Clinical Communication [facility], Ninth Floor [address] [place] [phone] Antonina Paul R.N. 08/17/2025linical Communication [facility] Transplantation and Clinical Regeneration in [place], [place] [address] [place] [phone] Jessica Rousseau M.B.B.S. Phone Hoanxaw5308/17/2025Refill [facility], [facility], Ninth Floor [address] [place] [address] Marky Pond M.D. Med Cofdor6208/16/2025Orders Only [facility], Ninth Floor [address] [place] [address] Marky Pond M.D. 08/16/2025Orders Only [facility] Transplantation and Clinical Regeneration in [place], [place] [address] [place] [phone] Gin Rubalcava APRN, C.N.P., D.N.P. 08/13/2025 11:30 AM CDTOffice Visit [facility] Transplantation and Clinical Regeneration in [place], [place] [address] [place] [phone] Jessica Rousseau M.B.B.SKatalina Bone Marrow Transplant Status (HCC) (Primary Dx)08/13/2025 11:00 AM CDTNurse Only [facility] Transplantation and Clinical Regeneration in [place], [place] [address] [place] [phone] Jessica Rousseau M.B.B.S. Vianney Alvares, R.N. 08/13/2025 10:30 AM CDTOffice Visit [facility] Transplantation and Clinical Regeneration in [place], [place] [address] [place] [phone] Jessica Rousseau M.B.B.S. Nelli Parker Pharm.D., R.Ph. 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 Sudha French, M.S.W., L.I.C.S.W. 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 Tucke, Kristine K, R.N. Gfeodenqmktkl57/23/2025 8:00 AM CDTOffice Visit Department of Palliative Care in [place], [place] [address] [place] [phone] Meghan Osorio M.D. 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 Surgical Qcrsaxtfm90/21/2025Documentation [facility], Ninth Floor [address] [place] [address] Jessica Avila APRN C.N.Jean., M.S.N. 08/09/2025linical Communication Pedro Aravind [facility] for Transplantation and Clinical Regeneration in [place], [place] [address] [place] [address] Jessica Avila APRN C.N.P., M.S.N. 08/08/2025Documentation [facility], Ninth Floor [address] [place] [address] Oli Lynch P.A.-C. 08/08/2025Orders Only [facility], [facility], Ninth Floor [address] [place] [address] Oli Lynch P.A.-C. 08/05/2025 3:00 PM CDTLab Department of Laboratory Medicine and Pathology, [facility], in [place], [place] [address] [place] [address] Arlen James APRN C.N.P., D.N.P. 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 Elise Pizarro, R.N. 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)from Last 3 Months Immunizations ImmunizationAdministration DatesNext Phe2pAZI (discontinued)11/08/2007, 06/27/2007,04/26/2007DTaP-IPV/Hib (Pentacel)10/13/2025,08/11/2025,06/10/2025HZV (ZOSTAVAX)08/09/2023(Deferred: Patient ill today)HepA Adult06/10/2025HepB Adult 03/07/2001,10/31/2000,09/19/2000HepB Adult (HEPLISAV-B)08/11/2025,06/10/2025 Influenza TIV (IM)09/02/2012,08/14/2011,10/19/2003,09/17/2002,01/22/2002MCV4 (Menactra)(Discontinued)04/26/2007MENACWY-TT (MENQUADFI)(MCV4)08/11/2025, 06/10/2025MMR04/25/2001,03/07/20019051QHM9130/25/2025,08/11/2025,06/10/2025RZV (SHINGRIX)08/11/2025,06/10/20252510TFMH-VYD-3 (COVID-19) - MODERNA(Discontinued) 10/31/2021,03/30/2021,03/02/2021Td (Adult), jkbudrmp04/22/6297Rcav28/15/2012 influenza vaccine quad (FLUZONE/FLUARIX) (6 months and older)(PF)09/26/2019 Family History Medical HistoryRelationNameCommentsCystic fibrosisBrother 1Anxiety disorder Brother 2dakota fletcherDepressionBrother 2dakota fletcherPsychiatricMaternal Grandfathermyrth mogrenBreast cancer (in one breast)Maternal Grandmotherjoan PsychiatricMaternal GrandmotherjoanAnxiety disorderMotherbrenda martinez DepressionMotherbrenda fletcherHypertensionMotherbrenda fletcherSkin cancer Paternal GrandfatherGrandpa myrthNo Known ProblemsSonJacksonRelationNameStatus CommentsBrother 1Brother 2dakota fletcherFatherDeceaseddied in MVAMaternal Grandfathermyrth mogrenMaternal GrandmotherjoanMotherbrenda fletcherAlive Paternal GrandfatherGrandpa myrthSonJacksonAlive Social History Tobacco UseTypesPacks/DayYears UsedDateSmoking Tobacco: NeverSmokeless Tobacco: Never Tobacco Cessation:Counseling Given: Not Answered Alcohol UseStandard Drinks/WeekCommentsNever0 (1 standard drink = 0.6 oz pure alcohol)Humiliation, Afraid, Rape, and Kick questionnaireAnswerDate Recorded Within the last year, have you been afraid of your partner or ex-partner?No 08/11/2025Within the last year, have you been humiliated or emotionally abused in other ways by your partner or ex-partner?No08/11/2025Within the last year, have you been kicked, hit, slapped, or otherwise physically hurt by your partner or ex-partner?No08/11/2025Within the last year, have you been raped or forced to have any kind of sexual activity by your partner or ex-partner?No08/11/2025 Hunger Vital SignAnswerDate RecordedWithin the past 12 months, you worried that your food would run out before you got the money to buymore.Patient declined 08/13/2025Within the past 12 months, the food you bought just didn't last and you didn't have money to get more.Patient dlgajqnz06/25/2025PRAPARE - TransportationAnswerDate RecordedIn the past 12 months, has lack of transportation kept you from medical appointments or from getting medications?No 08/13/2025In the past 12 months, has lack of transportation kept you from meetings, work, or from getting things needed for daily living?No08/13/2025HC UtilitiesAnswerDate RecordedIn the past 12 months has the electric, gas, oil, or water company threatened to shut off services in your home?Patient declined 08/13/2025Postpartum DepressionAnswerDate RecordedPHQ-9 Total Score (max 27)12 07/08/2025Housing StabilityAnswerDate RecordedWhat is your living situation today?I have a steady place to live08/13/2025EducationAnswerDate RecordedWhat is the highest level of school you have completed or the highest degree you have received?Some college, no ttegld9104/24/2019CommentsNoSex and Gender InformationValueDate RecordedSex Assigned at KzoooIdnjzs11/07/2019 8:37 PM TRAINING MANAGER Legal ZocIdtiwf51/02/2017 2:43 PM CSTGender XkfzmjymWafxzs02/07/2019 8:37 PM TRAINING MANAGER Sexual OrientationChoose not to /17/2021 3:46 PM CDT Last Filed Vital Signs Vital SignReadingTime TakenCommentsBlood Yhfhfztq901/9710/30/2025 7:06 AM TRAINING MANAGER Vvkwd29643/12/2025 7:06 AM QPLFzjqfleccyc18.4 ??C (97.5 ??F)10/30/2025 7:06 AM CSTRespiratory Jjit644212/31/2024 2:30 AM CSTOxygen Sxyqxhnxsu26%10/30/2025 8:54 AM CSTInhaled Oxygen Concentration--Qnzhnr017 kg (236 lb)10/30/2025 7:06 AM TRAINING MANAGER Ifoqev784 cm (5' 8.11)08/13/2025 10:31 AM CDTBody Mass Index35.77008/13/2025 10:31 AM CDT Plan of Treatment DateTypeDepartmentCare Team (Latest Contact Info)Yiuuqnpjckc42/29/2025 9:00 AM CSTOffice Visit Department of Obstetrics and Gynecology in [place], [place] [address] [place] [address] [phone] Alice Linares M.D. [address] [place] [phone] 12/04/2025 1:30 PM CSTClinical Communication Virtual Review in [place], [place] 200 [place] [address] 12/07/2025 8:10 AM CSTLab Department of Laboratory Medicine and Pathology, [facility] in [place], [place] [address] [place] [phone] Jessica Rousseau M.B.B.S. [address] [place] [phone] 12/07/2025 9:15 AM CSTAppointment Outpatient Procedure Center in [place], [place] [address] [place] [phone] Jessica Rousseau M.B.B.S. [address] [place] [phone] 12/07/2025 11:00 AM CSTDiagnostic Division of Pulmonary Medicine in [place], [place] [address] [place] [phone] Jessica Rousseau M.B.B.S. [address] [place] [phone] 12/07/2025 1:00 PM CSTOffice Visit [facility] in [place], [place] [address] [place] [address] Jessica Rousseau M.B.B.S. [address] [place] [phone] 12/07/2025 1:30 PM CSTNurse Only [facility] Transplantation and Clinical Regeneration in [place], [place] [address] [place] [phone] Jessica Rousseau M.B.B.S. [address] [place] [phone] 12/07/2025 2:00 PM CSTOffice Visit [facility] Transplantation and Clinical [facility] in [place], [place] [address] [place] [phone] Jessica Rousseau M.B.B.S. [address] [place] [phone] 12/07/2025 3:00 PM CSTOffice Visit Department of Palliative Care in [place], [place] [address] [place] [phone] Martine Pardo B.MKatalinaB.S., B.M., B.Ch. [address] [place] [phone] Health MaintenanceDue DateLast DoneCommentsDental Oacxphoxcdn1989HIV Dgqzdiexc1989Dilated Eye ExamCervical/Vaginal Cancer Bkujlnxiq97, 10/15/2019, 11/25/2013Controlled Substance Bgxeozaoc53/18/2025ontrolled Substance Monitoring (UDS)04/05/2025PEG assessment for Opioid ellclxd9504/05/2025Vaccine Post BMT: HPV (Gardasil) 3 Doses (#1) 5COVID-19 Vaccine ( season), 03/30/2021, 03/02/2021Influenza Vaccine (#1)/06/2019, 09/02/2012, 08/14/2011, Additional history existsDepression Monitoring (PHQ-9) Vaccine Post BMT: Hepatitis A 2 Doses (#2)Generalized Anxiety (HERMINIO-7)Spirometry with DLCO or PFT03/23/2026 03/23/2025, 11/05/2024Lipid (Cholesterol) Tifalqoun10/04/2025, 06/23/2024, 09/08/2022Vaccine Post BMT: Pneumococcal (PCV20, age 2yrs+) 4 Doses (#4)/, 08/11/2025, 06/10/20253009Sjgoubsuck62, 07/02/2025, 01/09/2025, Additional history existsVitamin D Majhetx0107/06/2026 07/06/2025, 03/24/2025, 11/04/2024, Additional history existsControlled Substance Monitoring (PHQ-9)Fasting Glucose for Diabetes Oqnxzzekx89, 10/26/2025, 09/30/2025, Additional history exists Hepatitis B DlmmuigyuMfaprpcvyvoo10/24/2019Hepatitis C ScreeningCompleted 12/12/2018Depression Monitoring (PHQ-9 for quality tracking)Rfobtonnr05/05/2025 Opioid Risk Tool (ORT)Rdgjbijpe81/03/2025Vaccine Post BMT: CpG (Heplisav) 2 FqglsTgkdolixg18/23/2025, 06/10/2025Vaccine Post BMT: Meningococcal (MenQuadfi, age 2+) 2 SdvdtMslmyyyoi55/23/2025, 06/10/2025, 04/26/2007Vaccine Post BMT: Zoster (Shingrix) 2 NlwpvHsqgordqj61/23/2025, 06/10/2025Vaccine Post BMT: DTaP 3 xqcifEqbviixrt92/25/2025, 08/11/2025, 06/10/2025, Additional history exists Vaccine Post BMT: Hib 3 LdbdrArbaatydc39/25/2025, 08/11/2025, 06/10/2025Vaccine Post BMT: IPV 3 KblegWkdqfjwux39/25/2025, 08/11/2025, 06/10/2025Glucose Test for Med ZrqljonsndWidtdztkbjyu89/11/2025, 10/26/2025, 09/30/2025, Additional history exists Procedures Procedure NamePriorityDate/TimeAssociated DiagnosisCommentsCD4 T-CELL COUNT, B Ozfgybk7810/30/2025 7:55 AM TRAINING MANAGER 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) LACTATE DEHYDROGENASE (LD), XTivdttu54/12/2025 7:55 AM TRAINING MANAGER Transplant Stem Cell (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) CMV DNA DETECT/QUANT, MKxemokq01/12/2025 7:55 AM TRAINING MANAGER Transplant Stem Cell (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) US PELVIS TRANSVAGINAL AND TRANSABDOMINALRAD - Semiurgent (Fast; most ED patients; some inpatients)10/30/2025 12:25 AM TRAINING MANAGER ACHHQMJ3710/29/2025 10:41 PM TRAINING MANAGER LACTATE, B/EYspsm9310/29/2025 8:[address] ABDOMEN PELVIS WITH IV CONTRASTRAD - Semiurgent (Fast; most ED patients; some inpatients)10/29/2025 3:56 PM TRAINING MANAGER MICROSCOPIC TXHEXWSGRI93/11/2025 2:49 PM TRAINING MANAGER DIPSTICK, USTAT112/30/2024 2:49 PM TRAINING MANAGER PH, USTAT112/30/2024 2:49 PM TRAINING MANAGER OSMOLALITY, USTAT112/30/2024 2:49 PM TRAINING MANAGER URINALYSIS WITH AKQLETWILIPLMTY96/11/2025 2:49 PM TRAINING MANAGER BACTERIAL CULTURE, AEROBIC + SUSC, QGZWKBKIA50/11/2025 2:49 PM TRAINING MANAGER HUMAN CHORIONIC GONADOTROPIN (HCG), JAGRUTI,STAT112/30/2024 2:41 PM TRAINING MANAGER LACTATE FOR SEPSIS WITH KBCSZELLFZ27/11/2025 2:41 PM TRAINING MANAGER CBC WITH DIFFERENTIAL, BSTAT112/30/2024 2:41 PM TRAINING MANAGER LIPASE, S/PSTAT112/30/2024 2:41 PM TRAINING MANAGER HEPATIC FUNCTION PANEL, SSTAT112/30/2024 2:41 PM TRAINING MANAGER BASIC METABOLIC PANEL, S/PSTAT112/30/2024 2:41 PM TRAINING MANAGER LACTATE DEHYDROGENASE (LD), FErpgmrd25/08/2025 1:40 PM TRAINING MANAGER Leukemia Myeloid Chronic BCR/ABL Positive Not Having Achieved Remission (HCC) Transplant Bone Marrow Allogeneic (HCC) SODIUM, S/NWpcivvu61/08/2025 1:40 PM TRAINING MANAGER Leukemia Myeloid Chronic BCR/ABL Positive Not Having Achieved Remission (HCC) Transplant Bone Marrow Allogeneic (HCC) POTASSIUM, S/AStukcyu15/08/2025 1:40 PM TRAINING MANAGER Leukemia Myeloid Chronic BCR/ABL Positive Not Having Achieved Remission (HCC) Transplant Bone Marrow Allogeneic (HCC) MAGNESIUM, NNcklumz19/08/2025 1:40 PM TRAINING MANAGER Leukemia Myeloid Chronic BCR/ABL Positive Not Having Achieved Remission (HCC) Transplant Bone Marrow Allogeneic (HCC) GLUCOSE, FASTING, S/VAbysilp33/06/2025 1:40 PM TRAINING MANAGER Leukemia Myeloid Chronic BCR/ABL Positive Not Having Achieved Remission (HCC) Transplant Bone Marrow Allogeneic (HCC) Abnormal Finding Of Blood Chemistry Unspecified CREATININE WITH EGFR, S/GRitgyoe45/08/2025 1:40 PM TRAINING MANAGER Leukemia Myeloid Chronic BCR/ABL Positive Not Having Achieved Remission (HCC) Transplant Bone Marrow Allogeneic (HCC) CBC NO CALL BACK, REFLEX T/KCixhpod36/08/2025 1:40 PM TRAINING MANAGER Leukemia Myeloid Chronic BCR/ABL Positive Not Having Achieved Remission (HCC) Transplant Bone Marrow Allogeneic (HCC) CALCIUM, TOT, S/SKdfukpq68/08/2025 1:40 PM TRAINING MANAGER Leukemia Myeloid Chronic BCR/ABL Positive Not Having Achieved Remission (HCC) Transplant Bone Marrow Allogeneic (HCC) BUN (BLOOD UREA NITROGEN), S/EXdztazh67/08/2025 1:40 PM TRAINING MANAGER Leukemia Myeloid Chronic BCR/ABL Positive Not Having Achieved Remission (HCC) Transplant Bone Marrow Allogeneic (HCC) BILIRUBIN, TOT, S/NLzswaem72/08/2025 1:40 PM TRAINING MANAGER Leukemia Myeloid Chronic BCR/ABL Positive Not Having Achieved Remission (HCC) Transplant Bone Marrow Allogeneic (HCC) ASPARTATE AMINOTRANSFERASE (AST), S/SMbqfrri88/08/2025 1:40 PM TRAINING MANAGER Leukemia Myeloid Chronic BCR/ABL Positive Not Having Achieved Remission (HCC) Transplant Bone Marrow Allogeneic (HCC) ALANINE AMINOTRANSFERASE (ALT), S/VNehpbtz86/08/2025 1:40 PM TRAINING MANAGER Leukemia Myeloid Chronic BCR/ABL Positive Not Having Achieved Remission (HCC) Transplant Bone Marrow Allogeneic (HCC) ALKALINE PHOSPHATASE, S/EZxbfosr05/08/2025 1:40 PM TRAINING MANAGER Leukemia Myeloid Chronic BCR/ABL Positive Not Having Achieved Remission (HCC) Transplant Bone Marrow Allogeneic (HCC) ALBUMIN, S/UKljodxl19/08/2025 1:40 PM TRAINING MANAGER Leukemia Myeloid Chronic BCR/ABL Positive Not Having Achieved Remission (HCC) Transplant Bone Marrow Allogeneic (HCC) MAGNESIUM, CAscjmlb66/12/2025 8:49 AM TRAINING MANAGER Leukemia Myeloid Chronic BCR/ABL Positive Not Having Achieved Remission (HCC) Transplant Stem Cell (HCC) GLUCOSE, FASTING, S/NDibsagg45/12/2025 8:49 AM TRAINING MANAGER Leukemia Myeloid Chronic BCR/ABL Positive Not Having Achieved Remission (HCC) Transplant Stem Cell (HCC) Abnormal Finding Of Blood Chemistry Unspecified COMPREHENSIVE METABOLIC PANEL, S/CJbkmsax10/12/2025 8:49 AM TRAINING MANAGER Leukemia Myeloid Chronic BCR/ABL Positive Not Having Achieved Remission (HCC) Transplant Stem Cell (HCC) CBC WITH DIFFERENTIAL, BOmmhrtp41/12/2025 8:49 AM TRAINING MANAGER Leukemia Myeloid Chronic BCR/ABL Positive Not Having Achieved Remission (HCC) Transplant Stem Cell (HCC) INFLUENZA A, B, RSV, PCR, RAPID, WHazjynq26/25/2025 11:51 AM CDT 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) Transplant Stem Cell (HCC) Acute Upper Respiratory Infection Unspecified SARS CORONAVIRUS 2, PCR RAPID, KIyncpds00/25/2025 11:51 AM CDT 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) Transplant Stem Cell (HCC) CHIMERISM TRANSPLANT SORTED SRBJSLzkdrfn17/25/2025 10:21 AM CDT Leukemia Myeloid Chronic BCR/ABL Positive Not Having Achieved Remission (HCC) 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) CORTISOL, JGxdgzuu92/25/2025 10:21 AM CDT Leukemia Myeloid Chronic BCR/ABL Positive Not Having Achieved Remission (HCC) 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) BCR/ABL1, P210, QUANT, KQUDNGBTpmquxn10/25/2025 10:21 AM CDT 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) Transplant Bone Marrow Allogeneic (HCC) SODIUM, S/QKfcnnup77/25/2025 10:21 AM CDT 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) Transplant Bone Marrow Allogeneic (HCC) POTASSIUM, S/RNvpgocw32/25/2025 10:21 AM CDT 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) Transplant Bone Marrow Allogeneic (HCC) MAGNESIUM, HXmuzbld57/25/2025 10:21 AM CDT 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) Transplant Bone Marrow Allogeneic (HCC) GLUCOSE, FASTING, S/NMnqhvzo49/25/2025 10:21 AM CDT 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) Transplant Bone Marrow Allogeneic (HCC) Fatigue CREATININE WITH EGFR, S/XPfnxxbr45/25/2025 10:21 AM CDT 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) Transplant Bone Marrow Allogeneic (HCC) CBC NO CALL BACK, REFLEX T/CHyncwac38/25/2025 10:21 AM CDT 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) Transplant Bone Marrow Allogeneic (HCC) CALCIUM, TOT, S/BNqrwtwg79/25/2025 10:21 AM CDT 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) Transplant Bone Marrow Allogeneic (HCC) BUN (BLOOD UREA NITROGEN), S/KUeekuic58/25/2025 10:21 AM CDT 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) Transplant Bone Marrow Allogeneic (HCC) BILIRUBIN, TOT, S/OSlbmmgr96/25/2025 10:21 AM CDT 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) Transplant Bone Marrow Allogeneic (HCC) ASPARTATE AMINOTRANSFERASE (AST), S/NJxxtgrn96/ 10:21 AM CDT 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) Transplant Bone Marrow Allogeneic (HCC) ALANINE AMINOTRANSFERASE (ALT), S/EPlrjvlm09/25/2025 10:21 AM CDT 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) Transplant Bone Marrow Allogeneic (HCC) ALKALINE PHOSPHATASE, S/WWibsgmy89/25/2025 10:21 AM CDT 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) Transplant Bone Marrow Allogeneic (HCC) ALBUMIN, S/MVyiktxm07/25/2025 10:21 AM CDT 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) Transplant Bone Marrow Allogeneic (HCC) CMV DNA DETECT/QUANT, ZAatfiki04/25/2025 10:21 AM CDT 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) Transplant Bone Marrow Allogeneic (HCC) LACTATE DEHYDROGENASE (LD), ETyfumhs91/25/2025 10:20 AM CDT 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) Transplant Bone Marrow Allogeneic (HCC) CREATINE KINASE (CK), KWkppfdi80/25/2025 10:14 AM CDT Transplant Stem Cell (HCC) BCR/ABL1 QUALITATIVE DIAGNOSTIC ASSAY WITH REFLEX TO BCR/ABL1 P190 QUANT OR QUAL IBCEHGcvrpuo51/17/2025 3:23 PM CDT Leukemia Myeloid Chronic BCR/ABL Positive Not Having Achieved Remission (HCC) 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) BACTERIA / HELEN CULTURE, KGAQCZnftvzu63/17/2025 3:23 PM CDT Leukemia Myeloid Chronic BCR/ABL Positive Not Having Achieved Remission (HCC) 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) BACTERIA / HELEN CULTURE, FYFCWUrjwxho45/17/2025 3:23 PM CDT Leukemia Myeloid Chronic BCR/ABL Positive Not Having Achieved Remission (HCC) 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) LACTATE DEHYDROGENASE (LD), SIdvmrvt95/17/2025 1:42 PM CDT Transplant Stem Cell (HCC) Bone Marrow Transplant Status (HCC) SODIUM, S/WNitysej43/17/2025 1:42 PM CDT Transplant Stem Cell (HCC) Bone Marrow Transplant Status (HCC) POTASSIUM, S/SJdvstro19/17/2025 1:42 PM CDT Transplant Stem Cell (HCC) Bone Marrow Transplant Status (HCC) MAGNESIUM, KIjagqmr75/17/2025 1:42 PM CDT Transplant Stem Cell (HCC) Bone Marrow Transplant Status (HCC) GLUCOSE, FASTING, S/DTtgmaxx79/17/2025 1:42 PM CDT Transplant Stem Cell (HCC) Bone Marrow Transplant Status (HCC) CREATININE WITH EGFR, S/GRlszpps19/17/2025 1:42 PM CDT Transplant Stem Cell (HCC) Bone Marrow Transplant Status (HCC) CBC NO CALL BACK, REFLEX T/BUqihpoz56/17/2025 1:42 PM CDT Transplant Stem Cell (HCC) Bone Marrow Transplant Status (HCC) CALCIUM, TOT, S/NYqtcxcu78/17/2025 1:42 PM CDT Transplant Stem Cell (HCC) Bone Marrow Transplant Status (HCC) BUN (BLOOD UREA NITROGEN), S/VMfibeax20/17/2025 1:42 PM CDT Transplant Stem Cell (HCC) Bone Marrow Transplant Status (HCC) BILIRUBIN, TOT, S/TDiobtlt12/17/2025 1:42 PM CDT Transplant Stem Cell (HCC) Bone Marrow Transplant Status (HCC) ASPARTATE AMINOTRANSFERASE (AST), S/TQwkxlqb23/17/2025 1:42 PM CDT Transplant Stem Cell (HCC) Bone Marrow Transplant Status (HCC) ALANINE AMINOTRANSFERASE (ALT), S/BUlgixfv52/17/2025 1:42 PM CDT Transplant Stem Cell (HCC) Bone Marrow Transplant Status (HCC) ALKALINE PHOSPHATASE, S/IDczmbko62/17/2025 1:42 PM CDT Transplant Stem Cell (HCC) Bone Marrow Transplant Status (HCC) ALBUMIN, S/HOmvmtju92/17/2025 1:42 PM CDT Transplant Stem Cell (HCC) Bone Marrow Transplant Status (HCC) EBV DNA DETECT/QUANT, IGakmfob95/17/2025 1:42 PM CDT Transplant Stem Cell (HCC) Bone Marrow Transplant Status (HCC) 25-HYDROXYVITAMIN D2 AND D3, NEehwvco72/18/2025 5:46 AM CDT LIPID PANEL, MRhrjazq67/06/2025 9:29 AM CDT 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) Abnormal Finding Of Blood Chemistry Unspecified Follow Up Examination Following Bone Marrow Transplant PULMONARY FUNCTION AMZGLRmcqyfj41/05/2025 9:48 AM CDT 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 ComponentValueRef RangeTest MethodAnalysis TimePerformed AtPathologist Signature CMV DNA Detect/Quant, PUndetectedUndetected IU/mL10/30/2025 11:09 PM CSTSDSC Comment: Result in log IU/mL is Undetected. ----ADDITIONAL INFORMATION---- The quantification range of this assay is 35 to 10,000,000 IU/mL (1.54 log to 7.00 log IU/mL). Testing was performed using the lucrecia CMV test ([employer] Specimen (Source)Anatomical Location / LateralityCollection Method / Volume Collection TimeReceived TimeBlood (Blood, Venous)10/30/2025 7:55 AM TRAINING MANAGER 10/30/2025 10:07 AM TRAINING MANAGER Narrative Authorizing ProviderResult TypeResult StatusKimbsyed Roper APRN, C.N.P., D.N.P.LAB MICROBIOLOGY - BLOOD ORDERABLESFinal ResultPerforming Organization AddressCity/State/ZIP CodePhone Number [facility] [address] [place] [address] [facility] [address] [place] [address] [place] [address] * (ABNORMAL) CD4 Count for Immune Monitoring (10/30/2025 7:55 AM TRAINING MANAGER)Component ValueRef RangeTest MethodAnalysis TimePerformed AtPathologist FdwbpziwlTD02 Total Lymph Count0.870.82 - 2.84 thou/mcL10/30/2025 4:06 PM CSTSDSC% CD3 (T Cells)56(L)58 - 86 %10/30/2025 4:06 PM CSTSDSCCD3 (T Cells)487(L)550 - 2202 cells/[facility]10/30/2025 4:06 PM CSTSDSC% CD4 (T Cells)28(L)32 - 64 %10/30/2025 4:06 PM CSTSDSCCD4 (T Cells)245(L)365 - 1437 cells/[facility]10/30/2025 4:06 PM TRAINING MANAGER SDSC% CD8 (T Cells)2815 - 40 %10/30/2025 4:06 PM CSTSDSCCD8 T Unasg769229 - 846 cells/mcL10/30/2025 4:06 PM CSTSDSC4/8 Ratio1.0>=0.9112/31/2024 4:06 PM TRAINING MANAGER SDSC% Sample Nxorexpkl37%10/30/2025 4:06 PM CSTSDSC% Lymphocyte Fnwkgekcy12% 10/30/2025 4:06 PM CSTSDSCComment: ----ADDITIONAL INFORMATION---- This test was developed and its performance characteristics determined by [facility] in a manner consistent with CLIA requirements. This test has not been cleared or approved by the U.S. Food and Drug Administration. Specimen (Source)Anatomical Location / LateralityCollection Method / Volume Collection TimeReceived TimeBlood (Blood, Venous)10/30/2025 7:55 AM TRAINING MANAGER 10/30/2025 9:49 AM TRAINING MANAGER Narrative Authorizing ProviderResult TypeResult StatusYapeng Phill P.A.-C.LAB BLOOD ADD-ON Final ResultPerforming OrganizationAddressCity/State/ZIP CodePhone Number [facility] [address] [place] [address] [facility] [address] [place] [address] [place] [address] * LD (Lactate Dehydrogenase) (10/30/2025 7:55 AM TRAINING MANAGER) Only the most recent of4 resultswithin the time period is included. ComponentValueRef RangeTest MethodAnalysis TimePerformed AtPathologist [facility] [id number] - 222 U/L112/31/2024 9:11 AM CSTDTLSpecimen (Source) Anatomical Location / LateralityCollection Method / VolumeCollection Time Received TimeBlood (Blood, Venous)10/30/2025 7:55 AM CST10/30/2025 8:42 AM TRAINING MANAGER Narrative Authorizing ProviderResult TypeResult StatusDevi Roper APRN, C.N.P., D.N.P.LAB BLOOD NON ADD-ONFinal ResultPerforming OrganizationAddress City/State/ZIP CodePhone Number [facility] [address] [place] [address], [place] [facility] [address] [address] * US Pelvis Transvaginal and Transabdominal (10/30/2025 12:25 AM TRAINING MANAGER)Anatomical RegionLateralityModalityPelvis, Ultrasound RST LOS, Ultrasound ARZ LOS, Ultrasound FLA LOSN/AUltrasoundSpecimen (Source)Anatomical Location / LateralityCollection Method / VolumeCollection TimeReceived Time Impressions 10/30/2025 7:30 AM TRAINING MANAGER 1. Heterogeneous appearance of the myometrium, which can be seen with uterine adenomyosis. 2. ??Normal sonographic appearance of the bilateral ovaries with patent arterial vasculature. The ovarian veins were not visualized bilaterally. No definite evidence of ovarian torsion. Narrative 10/30/2025 7:30 AM TRAINING MANAGER EXAM: US PELVIS TRANSVAGINAL AND TRANSABDOMINAL Exam [...] evidence of ovarian torsion. Authorizing ProviderResult TypeResult Jono Beard M.D.IMG US PROCEDURESFinal Result * ECG 12 Lead (10/29/2025 10:41 PM TRAINING MANAGER)ComponentValueRef RangeTest Method Analysis TimePerformed AtPathologist SignatureVentricular Rate ECG/Ygg23GGO MUSEPR Hnuvcxjv091agTWNUHGWU Oqgdmdqh84beXHNCNT Uforufkf202ulRTJTNJJ Interval 437msMUSEP Jrer59hfgfqaoVPWZF Fkey80ghdxuuzKIOKD Wave Ubsa46wlhhetkAPSQ Specimen (Source)Anatomical Location / LateralityCollection Method / Volume Collection TimeReceived Time10/29/2025 10:41 PM CST10/29/2025 10:45 PM TRAINING MANAGER Impressions MUSE - 10/29/2025 10:45 PM TRAINING MANAGER Normal sinus rhythm Nonspecific ST abnormality When compared with ECG of 06-Jul-2025 07:57, No significant change was found Reviewed by LEONEL Cisse Narrative Procedure Note Néstor Navas M.D. - 10/29/2025 IMPRESSION: Normal sinus rhythm Nonspecific ST abnormality When compared with ECG of 06-Jul-2025 07:57, No significant change was found Reviewed by LEONEL Cisse Authorizing ProviderResult TypeResult Jono Beard M.D.ECG ORDERABLESFinal ResultPerforming OrganizationAddressCity/State/ZIP CodePhone Number MUSE NA * Lactate (10/29/2025 8:15 PM TRAINING MANAGER)ComponentValueRef RangeTest MethodAnalysis TimePerformed AtPathologist SignatureLactate, P1.60.5 - 2.2 mmol/L112/30/2024 8:54 PM CSTSTMASpecimen (Source)Anatomical Location / LateralityCollection Method / VolumeCollection TimeReceived QabtLgkjc41/11/2025 8:15 PM TRAINING MANAGER 10/29/2025 8:32 PM TRAINING MANAGER Narrative Authorizing ProviderResult TypeResult StatusJennyfer Paulino M.D.LAB BLOOD NON ADD-ONFinal ResultPerforming OrganizationAddressCity/State/ZIP CodePhone Number [facility] [address] [place] [address], [facility] [address] [place] [address] * CT Abdomen Pelvis with IV Contrast (10/29/2025 3:56 PM TRAINING MANAGER)Anatomical Region LateralityModalityAbdomen, Pelvis, Abdominal RST LOS, Abdominal ARZ LOS, Abdominal FLA LOSN/AComputed Tomography, Computed TomographySpecimen (Source) Anatomical Location / LateralityCollection Method / VolumeCollection Time Received Time10/29/2025 3:48 PM TRAINING MANAGER Impressions 10/29/2025 4:00 PM TRAINING MANAGER 1. Decompressed bladder is difficult to characterize but with apparent wall thickening. Correlate with urinalysis. No hydronephrosis. 2. ??Diffuse hepatic steatosis. 3. ??Spleen size, as detailed. Narrative 10/29/2025 4:00 PM TRAINING MANAGER EXAM: CT ABDOMEN PELVIS WITH IV CONTRAST [...] Spleen size, as detailed. Authorizing ProviderResult TypeResult StatusMaanand Marquez P.A.-C., M.S.IMG CT PROCEDURESFinal Result * (ABNORMAL) Dipstick, Urine (10/29/2025 2:49 PM TRAINING MANAGER)ComponentValueRef RangeTest MethodAnalysis TimePerformed AtPathologist SignatureHemoglobin, QL, UNegative Crfykvmd97/11/2025 3:38 PM CSTDTLLeukocyte Esterase, UModerate(A)Negative 10/29/2025 3:38 PM CSTDTLNitrite, YQakbchywBawnguls21/11/2025 3:38 PM CSTDTL Ketone, UNegativeNegative mg/dL10/29/2025 3:38 PM CSTDTLGlucose, UNegative Negative mg/dL10/29/2025 3:38 PM CSTDTLSpecimen (Source)Anatomical Location / LateralityCollection Method / VolumeCollection TimeReceived TimeUrine 10/29/2025 2:49 PM CST10/29/2025 3:24 PM TRAINING MANAGER Narrative Authorizing ProviderResult TypeResult StatusChharitha Beard M.D.LAB URINE ORDERABLESFinal ResultPerforming OrganizationAddressCity/State/ZIP Code Phone Number [facility] [address] [place] [address], [place] DTL [facility] [address] [place] [address] * (ABNORMAL) Microscopic Manual (10/29/2025 2:49 PM TRAINING MANAGER)ComponentValueRef Range Test MethodAnalysis TimePerformed AtPathologist SignatureMicroscopyAbnormal 10/29/2025 3:59 PM CSTDTLRBC<3<3 /hpf10/29/2025 3:59 PM GXWHIDSMF54-32(A)/hpf 10/29/2025 3:59 PM CSTDTLComment: ----REFERENCE VALUE---- <4 (Males) <11 (Females) Transitional Epithelial Cells1-3(A)/hpf10/29/2025 3:59 PM CSTDTLSquamous Epithelial Cells, U11-20/hpf10/29/2025 3:59 PM CSTDTLBacteriaPresent(A) 10/29/2025 3:59 PM CSTDTLSpecimen (Source)Anatomical Location / Laterality Collection Method / VolumeCollection TimeReceived YbgvPguiu11/11/2025 2:49 PM CST10/29/2025 3:37 PM TRAINING MANAGER Narrative Authorizing ProviderResult TypeResult StatusJennyfer Paulino M.D.LAB URINE ORDERABLESFinal ResultPerforming OrganizationAddressCity/State/ZIP CodePhone Number [facility] [address] [place] [address], [facility] [address] [place] [address] * Bacterial Culture, Aerobic + Susceptibility, Urine (10/29/2025 2:49 PM TRAINING MANAGER) ComponentValueRef RangeTest MethodAnalysis TimePerformed AtPathologist SignatureUrine CultureUrogenital microbiota, susceptibilities not performed per laboratory criteria. 10/30/2025 10:30 AM CSTDTLSpecimen (Source)Anatomical Location / Laterality Collection Method / VolumeCollection TimeReceived TimeUrine (Urine, Midstream) 10/29/2025 2:49 PM CST10/29/2025 4:21 PM CSTComment:Specimen Source Site: Urine Narrative Authorizing ProviderResult TypeResult StatusSean Beard M.D.LAB MICROBIOLOGY - GENERAL ORDERABLESFinal ResultPerforming OrganizationAddress City/State/ZIP CodePhone Number [facility] [address] [place] [address], [facility] [address] [place] [address] * pH, Urine (10/29/2025 2:49 PM TRAINING MANAGER)ComponentValueRef RangeTest MethodAnalysis TimePerformed AtPathologist SignaturepH, U5.44.5 - 8.012 3:52 PM TRAINING MANAGER DTLSpecimen (Source)Anatomical Location / LateralityCollection Method / Volume Collection TimeReceived YodiHelqu77/11/2025 2:49 PM CST10/29/2025 3:24 PM TRAINING MANAGER Narrative Authorizing ProviderResult TypeResult StatusChristopher Linsey Beard M.D.LAB URINE ORDERABLESFinal ResultPerforming OrganizationAddressty/State/ZIP Code Phone Number [facility] [address] [place] [address], [facility] [address] [place] [address] * Osmolality, Urine (10/29/2025 2:49 PM TRAINING MANAGER)ComponentValueRef RangeTest Method Analysis TimePerformed AtPathologist SignatureOsmolality, A240840 - 1150 mOsm/kg10/29/2025 3:52 PM CSTDTLSpecimen (Source)Anatomical Location / LateralityCollection Method / VolumeCollection TimeReceived TimeUrine 10/29/2025 2:49 PM CST10/29/2025 3:24 PM TRAINING MANAGER Narrative Authorizing ProviderResult TypeResult StatusChharitha Beard M.D.LAB URINE ORDERABLESFinal ResultPerforming OrganizationAddressCity/State/ZIP Code Phone Number [facility] [address] [place] [address], [facility] [address] [place] [address] * Urinalysis, with Microscopic: Urine, Midstream (10/29/2025 2:49 PM TRAINING MANAGER) ComponentValueRef RangeTest MethodAnalysis TimePerformed AtPathologist SignatureSourceUrine, Urine, Yccpyuqwm96/11/2025 3:24 PM CSTDTLColor, UYellow 10/29/2025 3:24 PM CSTDTLClarity, PYljzr3610/29/2025 3:24 PM CSTDTLProtein, U17 <26 mg/dL10/29/2025 4:15 PM CSTDTLProtein/Osmolality0.26<0.42 ratio10/29/2025 4:15 PM CSTDTLPredicted 24 HR Protein, U195<229 mg/24 10/29/2025 4:15 PM TRAINING MANAGER DTLPredicted Mlbqy16-276gw/24 10/29/2025 4:15 PM CSTDTLSpecimen (Source) Anatomical Location / LateralityCollection Method / VolumeCollection Time Received TimeUrine (Urine, Midstream)10/29/2025 2:49 PM CST10/29/2025 3:24 PM TRAINING MANAGER Narrative Authorizing ProviderResult TypeResult StatusChharitha Beard M.D.LAB URINE ORDERABLESFinal ResultPerforming OrganizationAddressCity/State/ZIP Code Phone Number [facility] [address] [place] [address], [facility] DTL [facility] [address] [place] [address] * Lactate for Sepsis with Reflex (10/29/2025 2:41 PM TRAINING MANAGER)ComponentValueRef Range Test MethodAnalysis TimePerformed AtPathologist SignatureLactate, P2.20.5 - 2.2 mmol/L112/30/2024 3:13 PM CSTSTMASpecimen (Source)Anatomical Location / LateralityCollection Method / VolumeCollection TimeReceived TimeBlood (Blood, Venous)10/29/2025 2:41 PM CST10/29/2025 2:59 PM TRAINING MANAGER Narrative Authorizing ProviderResult TypeResult Jono Beard M.D.LAB BLOOD NON ADD-ONFinal ResultPerforming OrganizationAddressCity/State/ZIP Code Phone Number [facility] [address] [place] [address], [facility] STMA [facility] [address] [place] [address] * (ABNORMAL) Hepatic Function Panel (10/29/2025 2:41 PM TRAINING MANAGER)ComponentValueRef RangeTest MethodAnalysis TimePerformed AtPathologist SignatureBilirubin, Total, S0.30.0 [...] (Blood, Venous)10/29/2025 2:41 PM CST10/29/2025 3:14 PM TRAINING MANAGER Narrative Authorizing ProviderResult TypeResult StatusChristopher Linsey Beard M.D.LAB BLOOD ADD-ONFinal ResultPerforming OrganizationAddressCity/State/[place] [address], [facility] DTL [facility] [address] [place] [address] * (ABNORMAL) CBC with Differential, Blood (10/29/2025 2:41 PM TRAINING MANAGER) Only the most recent of2 resultswithin the time period is included. ComponentValueRef RangeTest MethodAnalysis TimePerformed AtPathologist Signature Zxsfospfbr53.811.6 - 15.0 g/dL10/29/2025 3:01 PM DVCDSYZSicfltohuk51.735.5 - 44.9 %10/29/2025 3:01 PM CSTSTMAErythrocytes4.653.92 - 5.13 x10(12)/L112/30/2024 3:01 PM XHCQVPCQYC94.178.2 - 97.9 fL10/29/2025 3:01 PM CSTSTMARBC Distrib Width 13.212.2 - 16.1 %10/29/2025 3:01 PM CSTSTMAPlatelet Qwjny437046 - 371 x10(9)/L 10/29/2025 3:01 PM CSTSTMALeukocytes4.43.4 - 9.6 x10(9)/L112/30/2024 3:01 PM TRAINING MANAGER STMANeutrophils2.911.56 - 6.45 x10(9)/L112/30/2024 3:01 PM CSTDHPMLymphocytes0.99 0.95 - 3.07 x10(9)/L112/30/2024 3:01 PM CSTSTMAMonocytes0.18(L)0.26 - 0.81 x10(9)/L112/30/2024 3:01 PM CSTSTMAEosinophils0.300.03 - 0.48 x10(9)/L112/30/2024 3:01 PM CSTSTMABasophils0.040.01 - 0.08 x10(9)/L112/30/2024 3:01 PM CSTSTMA Specimen (Source)Anatomical Location / LateralityCollection Method / Volume Collection TimeReceived TimeBlood (Blood, Venous)10/29/2025 2:41 PM TRAINING MANAGER 10/29/2025 2:58 PM TRAINING MANAGER Narrative Authorizing ProviderResult TypeResult StatusChharitha Beard M.D.LAB BLOOD ADD-ONFinal ResultPerforming OrganizationAddressCity/State/ZIP CodePhone Number [facility] [address] [place] [address], [facility] [address] [place] [address] * hCG (Human Chorionic Gonadotropin), Quantitative, (10/29/2025 2:41 PM TRAINING MANAGER)ComponentValueRef RangeTest MethodAnalysis TimePerformed AtPathologist SignatureHCG, Quantitative, , P1.0<5 IU/L112/30/2024 3:18 PM CSTSTMA Specimen (Source)Anatomical Location / LateralityCollection Method / Volume Collection TimeReceived TimeBlood (Blood, Venous)10/29/2025 2:41 PM TRAINING MANAGER 10/29/2025 2:58 PM TRAINING MANAGER Narrative Authorizing ProviderResult TypeResult StatusChharitha Beard M.D.LAB BLOOD ADD-ONFinal ResultPerforming OrganizationAddressCity/State/ZIP CodePhone Number [facility] [address] [place] [address], [facility] [address] [place] [address] * Lipase (10/29/2025 2:41 PM TRAINING MANAGER)ComponentValueRef RangeTest MethodAnalysis Time Performed AtPathologist SignatureLipase, S1513 - 60 U/L112/30/2024 3:30 PM TRAINING MANAGER DTLSpecimen (Source)Anatomical Location / LateralityCollection Method / Volume Collection TimeReceived TimeBlood (Blood, Venous)10/29/2025 2:41 PM TRAINING MANAGER 10/29/2025 3:14 PM TRAINING MANAGER Narrative Authorizing ProviderResult TypeResult StatusChristopher Linsey Beard M.D.LAB BLOOD ADD-ONFinal ResultPerforming OrganizationAddressCity/State/ZIP CodePhone Number [facility] [address] [place] [address], [place] [facility] [address] [place] [address] * (ABNORMAL) Basic Metabolic Panel (10/29/2025 2:41 PM TRAINING MANAGER)ComponentValueRef RangeTest MethodAnalysis TimePerformed AtPathologist SignaturePotassium, P3.7 3.6 - 5.2 mmol/L112/30/2024 3:17 PM CSTSTMASodium, X010373 - 145 mmol/L 10/29/2025 3:17 PM CSTSTMAChloride, R55650 - 107 mmol/L112/30/2024 3:17 PM TRAINING MANAGER STMABicarbonate, P2622 - 29 mmol/L112/30/2024 3:17 PM [...] (Blood, Venous)10/29/2025 2:41 PM CST10/29/2025 2:58 PM TRAINING MANAGER Narrative Authorizing ProviderResult TypeResult StatusChristopher Linsey Beard M.D.LAB BLOOD ADD-ONFinal ResultPerforming OrganizationAddressCity/State/ZIP CodePhone Number [facility] [address] [place] [address], [facility] [address] [place] [address] * (ABNORMAL) CBC no call back, reflex T/S HGB <8 (10/26/2025 1:40 PM TRAINING MANAGER) Only the most recent of3 resultswithin the time period is included. ComponentValueRef RangeTest MethodAnalysis TimePerformed AtPathologist Signature Hxxvyfypml53.611.6 - 15.0 g/dL10/26/2025 2:19 PM HTRURISfzluohtqw80.535.5 - 44.9 %10/26/2025 2:19 PM CSTDTLErythrocytes4.573.92 - 5.13 x10(12)/L112/27/2024 2:19 PM YTACVSXCL91.278.2 - 97.9 fL10/26/2025 2:19 PM CSTDTLRBC Distrib Width13.312.2 - 16.1 %10/26/2025 2:19 PM CSTDTLPlatelet Peidd914657 - 371 x10(9)/L112/27/2024 2:19 PM CSTDTLLeukocytes4.13.4 - 9.6 x10(9)/L112/27/2024 2:19 PM CSTDTL Neutrophils2.571.56 - 6.45 x10(9)/L112/27/2024 2:19 PM CSTDHPMLymphocytes0.89(L) 0.95 - 3.07 x10(9)/L112/27/2024 2:19 PM CSTDTLMonocytes0.24(L)0.26 - 0.81 x10(9)/L112/27/2024 2:19 PM CSTDTLEosinophils0.300.03 - 0.48 x10(9)/L112/27/2024 2:19 PM CSTDTLBasophils0.050.01 - 0.08 x10(9)/L112/27/2024 2:19 PM CSTDTLSpecimen (Source)Anatomical Location / LateralityCollection Method / VolumeCollection TimeReceived TimeBlood (Blood, Venous)10/26/2025 1:40 PM CST10/26/2025 2:05 PM TRAINING MANAGER Narrative Authorizing ProviderResult TypeResult StatusDevi Roper APRN, C.N.P., D.N.P.LAB BLOOD NON ADD-ONFinal ResultPerforming OrganizationAddress City/State/ZIP CodePhone Number [facility] [address] [place] [address], [place] [address] * BUN (Blood Urea Nitrogen) (10/26/2025 1:40 PM TRAINING MANAGER) Only the most recent of3 resultswithin the time period is included. ComponentValueRef RangeTest MethodAnalysis TimePerformed AtPathologist Signature BUN (Blood Urea Nitrogen), S86 - 21 mg/dL10/26/2025 2:39 PM CSTDTLSpecimen (Source)Anatomical Location / LateralityCollection Method / VolumeCollection TimeReceived TimeBlood (Blood, Venous)10/26/2025 1:40 PM CST10/26/2025 2:04 PM TRAINING MANAGER Narrative Authorizing ProviderResult TypeResult StatuseDvi Roper APRN, C.N.P., D.N.P.LAB BLOOD ADD-ONFinal ResultPerforming OrganizationAddressCity/State/ZIP CodePhone Number [facility] [address] [place] [address], [place] [address] * (ABNORMAL) ALT (Alanine Aminotransferase) (10/26/2025 1:40 PM TRAINING MANAGER) Only the most recent of3 resultswithin the time period is included. ComponentValueRef RangeTest MethodAnalysis TimePerformed AtPathologist Signature Alanine Aminotransferase (ALT), S61(H)7 - 45 U/L112/27/2024 2:39 PM CSTDTL Specimen (Source)Anatomical Location / LateralityCollection Method / Volume Collection TimeReceived TimeBlood (Blood, Venous)10/26/2025 1:40 PM TRAINING MANAGER 10/26/2025 2:04 PM TRAINING MANAGER Narrative Authorizing ProviderResult TypeResult StatusSatnam Foster APRN.N.P., D.N.P.LAB BLOOD ADD-ONFinal ResultPerforming OrganizationAddressCity/State/ZIP CodePhone Number [facility] [address] [place] [address], [facility] [address] * (ABNORMAL) AST (Aspartate Aminotransferase) (10/26/2025 1:40 PM TRAINING MANAGER) Only the most recent of3 resultswithin the time period is included. ComponentValueRef RangeTest MethodAnalysis TimePerformed AtPathologist Signature Aspartate Aminotransferase (AST), P46(H)8 - 43 U/L112/27/2024 2:19 PM CSTMETH Specimen (Source)Anatomical Location / LateralityCollection Method / Volume Collection TimeReceived TimeBlood (Blood, Venous)10/26/2025 1:40 PM TRAINING MANAGER 10/26/2025 1:55 PM TRAINING MANAGER Narrative Authorizing ProviderResult TypeResult StatusDevi Roper APRN, C.N.P., D.N.P.LAB BLOOD ADD-ONFinal ResultPerforming OrganizationAddressCity/State/ZIP CodePhone Number [facility] [address] [place] [address], [facility] [address] * Sodium (10/26/2025 1:40 PM TRAINING MANAGER) Only the most recent of3 resultswithin the time period is included. ComponentValueRef RangeTest MethodAnalysis TimePerformed AtPathologist Signature Sodium, M336283 - 145 mmol/L112/27/2024 2:39 PM CSTDTLSpecimen (Source)Anatomical Location / LateralityCollection Method / VolumeCollection TimeReceived TimeBlood (Blood, Venous)10/26/2025 1:40 PM CST10/26/2025 2:04 PM TRAINING MANAGER Narrative Authorizing ProviderResult TypeResult StatusSatnam Foster APRN.N.P., D.N.P.LAB BLOOD ADD-ONFinal ResultPerforming OrganizationAddressCity/State/ZIP CodePhone Number [facility] [address] [place] [address], [facility] [address] [place] [address] * Potassium (10/26/2025 1:40 PM TRAINING MANAGER) Only the most recent of3 resultswithin the time period is included. ComponentValueRef RangeTest MethodAnalysis TimePerformed AtPathologist Signature Potassium, S3.83.6 - 5.2 mmol/L112/27/2024 2:39 PM CSTDTLSpecimen (Source) Anatomical Location / LateralityCollection Method / VolumeCollection Time Received TimeBlood (Blood, Venous)10/26/2025 1:40 PM CST10/26/2025 2:04 PM TRAINING MANAGER Narrative Authorizing ProviderResult TypeResult StatusDevi Roper APRN C.N.P., D.N.P.LAB BLOOD ADD-ONFinal ResultPerforming OrganizationAddressCity/State/ZIP CodePhone Number [facility] [address] [place] [address], [address] [address] * Alkaline Phosphatase (10/26/2025 1:40 PM TRAINING MANAGER) Only the most recent of3 resultswithin the time period is included. ComponentValueRef RangeTest MethodAnalysis TimePerformed AtPathologist Signature Alkaline Phosphatase, I04728 - 104 U/L112/27/2024 2:39 PM CSTDTLSpecimen (Source) Anatomical Location / LateralityCollection Method / VolumeCollection Time Received TimeBlood (Blood, Venous)10/26/2025 1:40 PM CST10/26/2025 2:04 PM TRAINING MANAGER Narrative Authorizing ProviderResult TypeResult StatusDevi Roper APRN C.N.P., D.N.P.LAB BLOOD ADD-ONFinal ResultPerforming OrganizationAddressCity/State/ZIP CodePhone Number [facility] [address] [place] [address], [facility] [address] [place] [address] * Magnesium (10/26/2025 1:40 PM TRAINING MANAGER) Only the most recent of4 resultswithin the time period is included. ComponentValueRef RangeTest MethodAnalysis TimePerformed AtPathologist Signature Magnesium, S2.11.7 - 2.3 mg/dL10/26/2025 2:39 PM CSTDTLSpecimen (Source) Anatomical Location / LateralityCollection Method / VolumeCollection Time Received TimeBlood (Blood, Venous)10/26/2025 1:40 PM CST10/26/2025 2:04 PM TRAINING MANAGER Narrative Authorizing ProviderResult TypeResult StatusDevi Roper APRN, C.N.P., D.N.P.LAB BLOOD ADD-ONFinal ResultPerforming OrganizationAddressCity/State/ZIP CodePhone Number [facility] [address] [place] [address] * (ABNORMAL) Glucose, Fasting (10/26/2025 1:40 PM TRAINING MANAGER) Only the most recent of4 resultswithin the time period is included. ComponentValueRef RangeTest MethodAnalysis TimePerformed AtPathologist Signature Glucose, P155(H)70 - 100 mg/dL10/26/2025 3:45 PM CSTDTLLast Enimxt2ej18/08/2025 2:04 PM CSTDTLSpecimen (Source)Anatomical Location / LateralityCollection Method / VolumeCollection TimeReceived TimeBlood (Blood, Venous)10/26/2025 1:40 PM TRAINING MANAGER 10/26/2025 2:04 PM TRAINING MANAGER Narrative Authorizing ProviderResult TypeResult StatusDevi Roper APRN, C.N.P., D.N.P.LAB BLOOD NON ADD-ONFinal ResultPerforming OrganizationAddress City/State/ZIP CodePhone Number [facility] [address] [place] [address], [facility] [address] [place] [address] * Creatinine with Estimated GFR (10/26/2025 1:40 PM TRAINING MANAGER) Only the most recent of3 resultswithin the time period is included. ComponentValueRef RangeTest MethodAnalysis TimePerformed AtPathologist Signature Creatinine0.700.59 - 1.04 mg/dL10/26/2025 2:39 PM CSTDTLEstimated GFR (eGFR)>90 >=60 mL/min/BSA10/26/2025 2:39 PM CSTDTLComment: Estimated GFR calculated using the 2020 CKD_EPI creatinine equation. Specimen (Source)Anatomical Location / LateralityCollection Method / Volume Collection TimeReceived TimeBlood (Blood, Venous)10/26/2025 1:40 PM TRAINING MANAGER 10/26/2025 2:04 PM TRAINING MANAGER Narrative Authorizing ProviderResult TypeResult StatusDevi Roper APRN, C.N.P., D.N.P.LAB BLOOD ADD-ONFinal ResultPerforming OrganizationAddressCity/State/ZIP CodePhone Number [address] [address], [address] [address] * Calcium, Total (10/26/2025 1:40 PM TRAINING MANAGER) Only the most recent of3 resultswithin the time period is included. ComponentValueRef RangeTest MethodAnalysis TimePerformed AtPathologist Signature Calcium, Total, S9.68.6 - 10.0 mg/dL10/26/2025 2:39 PM CSTDTLSpecimen (Source) Anatomical Location / LateralityCollection Method / VolumeCollection Time Received TimeBlood (Blood, Venous)10/26/2025 1:40 PM CST10/26/2025 2:04 PM TRAINING MANAGER Narrative Authorizing ProviderResult TypeResult StatusDevi Roper APRN, C.N.P., D.N.P.LAB BLOOD ADD-ONFinal ResultPerforming OrganizationAddressCity/State/ZIP CodePhone Number [address] [address], [address] [address] * Bilirubin, Total (10/26/2025 1:40 PM TRAINING MANAGER) Only the most recent of3 resultswithin the time period is included. ComponentValueRef RangeTest MethodAnalysis TimePerformed AtPathologist Signature Bilirubin, Total, P0.30.0 - 1.2 mg/dL10/26/2025 2:19 PM CSTMETHSpecimen (Source) Anatomical Location / LateralityCollection Method / VolumeCollection Time Received TimeBlood (Blood, Venous)10/26/2025 1:40 PM CST10/26/2025 1:55 PM TRAINING MANAGER Narrative Authorizing ProviderResult TypeResult StatusDevi Roper APRN, Satnam.N.P., D.N.P.LAB BLOOD ADD-ONFinal ResultPerforming OrganizationAddressCity/State/[place] [address], [facility] [address] * Albumin (10/26/2025 1:40 PM TRAINING MANAGER) Only the most recent of3 resultswithin the time period is included. ComponentValueRef RangeTest MethodAnalysis TimePerformed AtPathologist Signature Albumin, S4.53.5 - 5.0 g/dL10/26/2025 2:39 PM CSTDTLSpecimen (Source)Anatomical Location / LateralityCollection Method / VolumeCollection TimeReceived TimeBlood (Blood, Venous)10/26/2025 1:40 PM CST10/26/2025 2:04 PM TRAINING MANAGER Narrative Authorizing ProviderResult TypeResult StatusDevi Roper APRN C.N.P., D.N.P.LAB BLOOD ADD-ONFinal ResultPerforming OrganizationAddressCity/State/[place] [address], [place] [address] * (ABNORMAL) Comprehensive Metabolic Panel (09/30/2025 8:49 AM TRAINING MANAGER)Component ValueRef RangeTest MethodAnalysis TimePerformed AtPathologist Signature Potassium, P4.33.6 - 5.2 mmol/L111/30/2024 12:20 PM CSTOWATSodium, M492474 - 145 mmol/L111/30/2024 12:20 PM CSTOWATChloride, W64269 - 107 mmol/L111/30/2024 12:20 PM CSTOWATBicarbonate, P21(L)22 - 29 mmol/L111/30/2024 12:20 PM CSTOWAT Anion Gap, P137 - 15111/30/2024 12:20 PM CSTOWATBUN (Blood Urea Nitrogen), P66 - 21 mg/dL09/30/2025 12:20 PM CSTOWATCreatinine0.630.59 - 1.04 mg/dL09/30/2025 12:20 PM CSTOWATEstimated GFR (eGFR)>90>=60 mL/min/BSA09/30/2025 12:20 PM TRAINING MANAGER OWATComment: Estimated GFR calculated using the 2020 [...] (Blood, Venous)09/30/2025 8:49 AM CST09/30/2025 10:35 AM TRAINING MANAGER Narrative Authorizing ProviderResult TypeResult StatusJessica BarnesLAB BLOOD ADD-ONFinal ResultPerforming OrganizationAddressCity/State/ZIP CodePhone Number [facility] [address] [place] [address], [place] [facility] [place] [address] [place] [address] * Influenza A, B, RSV, PCR, Rapid (08/13/2025 11:51 AM CDT)ComponentValueRef RangeTest MethodAnalysis TimePerformed AtPathologist SignatureInfluenza A, PCR, Rapid, LBafilzzbWmmbhcca70/25/2025 12:51 PM CDTMETHInfluenza B, PCR, Rapid, PKqfywfisZtacsfvz57/25/2025 12:51 PM CDTMETHResp Synctial Virus, PCR, ZwzygWkstzgxxMzsamdng55/25/2025 12:51 PM CDTMETHSpecimen SourceSwab, Qxxjqedckfk21/25/2025 12:36 PM CDTMETHSpecimen (Source)Anatomical Location / LateralityCollection Method / VolumeCollection TimeReceived TimeSwab (Nasopharynx)08/13/2025 11:51 AM CDT08/13/2025 12:01 PM CDT Narrative Authorizing ProviderResult TypeResult StatusJessica BarnesLAB MICROBIOLOGY - GENERAL ORDERABLESFinal ResultPerforming OrganizationAddress City/State/ZIP CodePhone Number [facility] [address] [place] [address], [facility] [address] [place] [address] * SARS Coronavirus 2, PCR Rapid Symptomatic (08/13/2025 11:51 AM CDT)Component ValueRef RangeTest MethodAnalysis TimePerformed AtPathologist SignatureSARS CoV-2, PCR, Rapid, YZecfezyghnPccmxdxxak90/25/2025 12:51 PM CDTMETHSARS Coronavirus 2, Rapid, SourceSwab, Xjxwuityqov33/25/2025 12:01 PM CDTMETH Specimen (Source)Anatomical Location / LateralityCollection Method / Volume Collection TimeReceived TimeSwab (Nasopharynx)08/13/2025 11:51 AM CDT 08/13/2025 12:01 PM CDT Narrative Authorizing ProviderResult TypeResult StatusAasiya Soham M.B.B.S.LAB MICROBIOLOGY - GENERAL ORDERABLESFinal ResultPerforming OrganizationAddress City/State/ZIP CodePhone Number [facility] [address] [place] [address], [place] [facility] [address] [place] [address] * Chimerism Transplant Sorted Cells (08/13/2025 10:21 AM CDT)ComponentValueRef RangeTest MethodAnalysis TimePerformed AtPathologist SignatureSpecimen Type Peripheral blood08/17/2025 12:21 PM CDTDTLInterpretationPeripheral blood, chimerism analysis: CD3-positive T-cells: ??The CD3-positive fraction contains approximately 90% donor DNA and approximately 10% recipient DNA. QP94-dpbhvfwk myeloid cells: ??The NY14-kifxkary fraction contains approximately 100% donor DNA and approximately 0% recipient DNA. 3 informative loci were used in the analysis of this sample. Signing Pathologist: Rehan Norton M.D. The pre-analytical cell sorting was performed on a research basis only. The analytical sensitivity of this assay is approximately 5% in a posttransplant specimen (donor and recipient DNA mixed chimerism). T-cells and myeloid cells were enriched to a purity of 95% or greater. Markers analyzed: X2T3510, P7R5883, FGA, SE33, vWA, D21S11, F35E2880, H88W4062, F42U107, D18S51, O3I636, M7P8434, CSF1PO, O2T761, Z18Y969, T42K839, TPOX, F35V769, R8A249 and D6S1920 08/17/2025 12:21 PM CDTDTLComment: ----ADDITIONAL INFORMATION---- Method summary - Chimerism: ??Genomic DNA was extracted and the specimen evaluated for the percentages of donor and recipient DNA using a PCR-based method that amplifies several highly polymorphic short tandem repeats (see [facility] Interpretive Handbook for method details). This test was developed and its performance characteristics determined by [facility] in a manner consistent with CLIA requirements. This test has not been cleared or approved by the U.S. Food and Drug Administration. Specimen (Source)Anatomical Location / LateralityCollection Method / Volume Collection TimeReceived TimeBlood (Blood, Venous)08/13/2025 10:21 AM CDT 08/13/2025 10:51 AM CDT Narrative Authorizing ProviderResult TypeResult StatusJessica BarnesLAB GENETIC TESTINGFinal ResultPerforming OrganizationAddressCity/State/ZIP CodePhone Number [facility] [address] [place] [address], [facility] [address] [facility] [address] [place] [address] * BCR/ABL1, p210, mRNA Detection, Reverse Optical Coating Technician-PCR (RT-PCR), Quantitative, Monitoring Chronic Myeloid Leukemia (CML) (08/13/2025 10:21 AM CDT)ComponentValueRef RangeTest MethodAnalysis TimePerformed AtPathologist SignatureSpecimen TypePeripheral blood08/14/2025 4:13 PM CDTDTLBCR/ABL1, p210 Resultsee aagwtbmwpwydhk18/26/2025 4:13 PM CDTDTLInterpretationPeripheral blood, BCR/ABL1 mRNA level analysis (p210 fusion [...] transcript isoforms. Signing Pathologist: Rehan Norton M.D. 08/14/2025 4:13 PM CDTDTLComment: ----ADDITIONAL INFORMATION---- Method summary - BCR/ABL1, p210 fusion: ??The BCR/ABL1 transcript level was evaluated using a quantitative, reverse waste elimination PCR. The analytical sensitivity of this assay [...] all possible fusion forms. Please contact the [facility] at [phone] with questions or if additional testing is required. See the [facility] Interpretive Handbook for method details. [...] its performance characteristics determined by [facility] in a manner consistent with CLIA requirements. This test has not been cleared or approved by the U.S. Food and Drug Administration. Specimen (Source)Anatomical Location / LateralityCollection Method / Volume Collection TimeReceived TimeBlood (Blood, Venous)08/13/2025 10:21 AM CDT 08/13/2025 10:51 AM CDT Narrative Authorizing ProviderResult TypeResult StatusAaherb BarnesLAB BLOOD NON ADD-ONFinal ResultPerforming OrganizationAddressCity/State/ZIP CodePhone Number [facility] [address] [place] [address], [facility] [address] [facility] [address] [place] [address] * Cortisol (08/13/2025 10:21 AM CDT)ComponentValueRef RangeTest MethodAnalysis TimePerformed AtPathologist SignatureCortisol, Random, S7.8mcg/dL08/13/2025 11:24 AM CDTDTLComment: ----REFERENCE VALUE---- AM (5901-5692): 4.8-20 PM (0818-5520): 2.5-12 Specimen (Source)Anatomical Location / LateralityCollection Method / Volume Collection TimeReceived TimeBlood (Blood, Venous)08/13/2025 10:21 AM CDT 08/13/2025 10:31 AM CDT Narrative Authorizing ProviderResult TypeResult StatusJessica Bustillos.SKatalinaLAB BLOOD ADD-ONFinal ResultPerforming OrganizationAddressty/State/ZIP CodePhone Number [facility] [address] [place] [address] * CK (Creatine Kinase) (08/13/2025 10:14 AM CDT)ComponentValueRef RangeTest MethodAnalysis TimePerformed AtPathologist SignatureCreatine Kinase (CK), S38 26 - 192 U/L08/13/2025 12:32 PM CDTDTLSpecimen (Source)Anatomical Location / LateralityCollection Method / VolumeCollection TimeReceived TimeBlood (Blood, Venous)08/13/2025 10:14 AM CDT08/13/2025 12:07 PM CDT Narrative Authorizing ProviderResult TypeResult StatusJessica DowlingB.S.LAB BLOOD ADD-ONFinal ResultPerforming OrganizationAddressty/State/ZIP CodePhone Number [facility] [address] [place] [address] * BCR/ABL1 Qualitative Diagnostic Assay with Reflex to BCR/ABL1 p190 Quantitative Assay or BCR/ABL1 p210 Quantitative Assay (08/05/2025 3:23 PM CDT)ComponentValueRef RangeTest MethodAnalysis TimePerformed AtPathologist SignatureSpecimen TypePeripheral blood08/07/2025 3:10 PM CDTDTLBCR/ABL1 Reflex Resultsee xnowrbjagtcicm33/19/2025 3:10 PM CDTDTLInterpretationPeripheral blood, BCR/ABL1 mRNA analysis, qualitative: Negative. No BCR/ABL1 mRNA transcripts were detected. Method summary: The presence or absence of BCR/ABL1 mRNA transcripts was evaluated using a qualitative, reverse waste elimination PCR-based assay. The assay detects nearly all published and theoretical BCR/ABL1 fusion forms including the common e13/e14-a2 (p210) and e1-a2 (p190) transcripts, as well as other rarer variants (e.g. e19-a2 (p230), e13/e14-a3, e1-a3, etc.). The limit of detection for this assay is 0.1%. Please contact the lab at [phone] with questions or if additional testing is required. See [facility] Test Catalog for additional method details. Signing Pathologist: Deidra Pruitt M.D. 08/07/2025 3:10 PM CDTDTLComment: ----ADDITIONAL INFORMATION---- This test was developed and its performance characteristics determined by [facility] in a manner consistent with CLIA requirements. This test has not been cleared or approved by the U.S. Food and Drug Administration. Specimen (Source)Anatomical Location / LateralityCollection Method / Volume Collection TimeReceived TimeBlood (Blood, Peripheral Draw)08/05/2025 3:23 PM CDT 08/05/2025 3:42 PM CDT Narrative Authorizing ProviderResult TypeResult StatusSusajuan jose James APRN, C.N.P., D.N.P.LAB GENETIC TESTINGFinal ResultPerforming OrganizationAddressCity/State/ZIP Code Phone Number [facility] [address] [place] [address], [facility] 200 [facility] 200 [place] [address] * Bacteria / Helen Culture, Blood #2 (08/05/2025 3:23 PM CDT) Only the most recent of2 resultswithin the time period is included. ComponentValueRef RangeTest MethodAnalysis TimePerformed AtPathologist Signature Bacteria/Helen Culture, BloodNo growth after 5 days of incubation.08/10/2025 4:02 PM CDTDTLSpecimen (Source)Anatomical Location / LateralityCollection Method / VolumeCollection TimeReceived TimeBlood (Blood, Peripheral Draw)08/05/2025 3:23 PM CDT08/05/2025 3:39 PM CDTComment:Specimen Source Site: Blood Narrative Authorizing ProviderResult TypeResult StatusSuclaire James APRN, C.N.P., Heaven.N.P.LAB MICROBIOLOGY - GENERAL ORDERABLESFinal ResultPerforming OrganizationAddress [facility]/State/ZIP CodePhone Number [facility] [address] [place] [address], [facility] [address] [place] [address] * EBV DNA Detect/Quant (08/05/2025 1:42 PM CDT)ComponentValueRef RangeTest MethodAnalysis TimePerformed AtPathologist SignatureEBV DNA Detect/Quant, P UndetectedUndetected IU/mL08/06/2025 1:42 PM CDTSDSCComment: Result in log IU/mL is Undetected. ----ADDITIONAL INFORMATION---- The quantification range of this assay is 35 to 100,000,000 IU/mL (1.54 log to 8.00 log IU/mL). Testing was performed using the lucrecia EBV test ([employer] Specimen (Source)Anatomical Location / LateralityCollection Method / Volume Collection TimeReceived TimeBlood (Blood, Venous)08/05/2025 1:42 PM CDT 08/05/2025 5:31 PM CDT Narrative Authorizing ProviderResult TypeResult StatusArlen James APRN, C.N.P., D.N.P.LAB MICROBIOLOGY - BLOOD ORDERABLESFinal ResultPerforming OrganizationAddress City/State/ZIP CodePhone Number [facility] [address] [place] [address] [place] [id number] [place] [address] [place] [address] * 25-Hydroxyvitamin D2 and D3 (07/06/2025 5:46 AM CDT)ComponentValueRef Range Test MethodAnalysis TimePerformed AtPathologist Dfqjebtfm75-Dzcyghe D2<4.0 ng/mL07/07/2025 10:42 AM QNQLLKU91-Idesrrs D327ng/mL07/07/2025 10:42 AM CDT JBQQ83-Ktncqej D Eaqiw70iz/mL07/07/2025 10:42 AM CDTSDSCComment: ----REFERENCE VALUE---- 25-HYDROXY D TOTAL (D2+D3) Optimum levels in the healthy population are 20-50. ----ADDITIONAL INFORMATION---- This test was developed and its performance characteristics determined by [facility] in a manner consistent with CLIA requirements. This test has not been cleared or approved by the U.S. Food and Drug Administration. Specimen (Source)Anatomical Location / LateralityCollection Method / Volume Collection TimeReceived TimeBlood (Blood, Venous)07/06/2025 5:46 AM CDT 07/06/2025 10:21 AM CDT Narrative Authorizing ProviderResult TypeResult StatusJessica Avila APRN C.N.P., M.S.N. LAB BLOOD ADD-ONFinal ResultPerforming OrganizationAddressCity/State/ZIP Code Phone Number [facility] [address] [place] [address] [facility] [address] [place] [address] [place] [address] * (ABNORMAL) Lipid Panel (03/24/2025 9:29 AM CDT)ComponentValueRef RangeTest MethodAnalysis TimePerformed AtPathologist JbcginppyKygunruczirbr526(H)mg/dL 03/24/2025 10:28 AM CDTDTLComment: ----REFERENCE VALUE---- Normal: <150 mg/dL Borderline High: 150-199 mg/dL High: 200-499 mg/dL Very High: > or =500 mg/dL Cholesterol, Keeqs048rr/dL03/24/2025 10:28 AM CDTDTLComment: ----REFERENCE VALUE---- Desirable: < 200 mg/dL Borderline High: 200 - 239 mg/dL High: > or = 240 mg/dL Cholesterol, LDL, Nywgfwkvim748ke/dL03/24/2025 10:28 AM CDTDTLComment: ----REFERENCE VALUE---- Desirable: <100 mg/dL Above Desirable: 100-129 mg/dL Borderline High: 130-159 mg/dL High: 160-189 mg/dL Very High: >=190 mg/dL ----ADDITIONAL INFORMATION---- LDL cholesterol calculated using the Thompson/NIH equation. Cholesterol, HDL, S44(L)>=50 mg/dL03/24/2025 10:28 AM CDTDTLCholesterol, Non- HDL, Hjxwtmjsez029th/dL03/24/2025 10:28 AM CDTDTLComment: ----REFERENCE VALUE---- Desirable: <130 mg/dL Above Desirable: 130-159 mg/dL Borderline High: 160-189 mg/dL High: 190-219 mg/dL Very High: > or =220 mg/dL Fasting (8 HR or more)No03/24/2025 9:30 AM CDTDTLSpecimen (Source)Anatomical Location / LateralityCollection Method / VolumeCollection TimeReceived TimeBlood (Blood, Venous)03/24/2025 9:29 AM CDT03/24/2025 9:47 AM CDT Narrative Authorizing ProviderResult TypeResult StatusAaherb BarnesLAB BLOOD ADD-ONFinal ResultPerforming OrganizationAddressCity/State/[place] [address], [facility] [address] * Pulmonary Function Tests (03/23/2025 9:48 AM CDT)ComponentValueRef RangeTest MethodAnalysis TimePerformed AtPathologist SignatureFVC5.33L03/23/2025 11:15 AM CDTMAYO SENTRY KCWWPQPK48.40L03/23/2025 11:15 AM CDTMAYO SENTRY SUITE FEV1/FVC82.70%03/23/2025 11:15 AM CDTMAYO SENTRY OMUKYSVT96-74%4.89L/s 03/23/2025 11:15 AM CDTMAYO SENTRY SUITEPEF PRE8.01L/s003/23/2025 11:15 AM CDT SKIPPACK SENTRY SUITEPIF PRE8.12L/s003/23/2025 11:15 AM CDTMAYO SENTRY SUITEPre FEF50/TBK7932.59%03/23/2025 11:15 AM CDTMAYO SENTRY SUITEFET PRE6.33sec 03/23/2025 11:15 AM CDTMAYO SENTRY JMORSMKDP35.95ml/(min*mmHg)03/23/2025 11:15 AM CDTMAYO SENTRY HBXKATHTUj13.32ml/(min*mmHg)03/23/2025 11:15 AM CDTMAYO SENTRY VGTJZUG10.70g(Hb)/dL03/23/2025 11:15 AM CDTMAYO SENTRY SUITEPre % Pred VA SINGLE BREATH6.32L03/23/2025 11:15 AM CDTMAYO SENTRY XVGJUJhueqBzvl43.00 1/min03/23/2025 11:15 AM CDTMAYO SENTRY NNOWPQ5EeyZoki57.00%03/23/2025 11:15 AM CDTMAYO SENTRY MFPPFIwbqkLrmh541.001/min03/23/2025 11:15 AM CDTMAYO SENTRY SUITEEXER TIME3.22bbn0503/23/2025 11:15 AM CDTMAYO SENTRY SUITESTEP HEIGHT PRE 9.33Uwah3303/23/2025 11:15 AM CDTMAYO SENTRY SUITESpecimen (Source)Anatomical Location / LateralityCollection Method / VolumeCollection TimeReceived Time 03/23/2025 9:48 AM CDT Impressions MADDI HEMPHILL - 03/23/2025 11:15 AM CDT Normal spirometry and diffusing capacity. Normal oxygen saturation at rest and exercise. Compared to 11/05/2024, no change in FVC, FEV1 and DLCO. Narrative Procedure Note Karina Medley M.D. - 03/23/2025 IMPRESSION: Normal spirometry and diffusing capacity. Normal oxygen saturation at restand exercise. Compared to 11/05/2024, no change in FVC, FEV1 and DLCO. Authorizing ProviderResult TypeResult StatusAaherb BarnesPFT ORDERABLES Final ResultPerforming OrganizationAddressCity/State/ZIP CodePhone Number MADDI HEMPHILL NA * ThinPrep w/HPV Co-Test Screen (10/15/2019 11:05 AM TRAINING MANAGER)ComponentValueRef Range Test MethodAnalysis TimePerformed AtPathologist SignatureCase Number [id number]/01/2019 4:10 PM CSTHKCYReport electronically signed byJEFF Mora(ASCP) I verify that I have examined all relevant slides/materials for the specimen(s) and rendered or confirmed the diagnosis. 10/21/2019 4:10 PM CSTHKCYGross DescriptionReceived specimen in a ThinPrep vial. 10/21/2019 4:10 PM CSTHKCYPap Test SourceCervical/Gmuhezblgxeb86/03/2019 4:10 PM CSTKCYClinical Qgruszflexue45/03/2019 4:10 PM CSTHKCYMenstrual Status(LMP, PM, )on depo mzjjnj0010/21/2019 4:10 PM CSTHKCYHormone Therapy/Contraceptives Hormone Replacement Wayxrpy3710/21/2019 4:10 PM CSTHKCYInterpretation Cervical/Endocervical ??(ThinPrep): Satisfactory for Evaluation Negative for Intraepithelial Lesion or Malignancy High Risk HPV: ??Negative Negative for High Risk HPV by nucleic acid amplification. The following High Risk HPV types were not detected: 16, 18, 31, 33, 35, 39, 45, 51, 52, 56, 58, 59, 66, and 68. 10/21/2019 4:10 PM CSTKCYSpecimen (Source)Anatomical Location / Laterality Collection Method / VolumeCollection TimeReceived TimeVaries (Cervix/Endocervix) 10/15/2019 11:05 AM CST10/17/2019 7:54 AM TRAINING MANAGER Narrative Authorizing ProviderResult TypeResult StatusEliyoanna Alonso M.D.LAB PAP PATHDX ORDERABLESFinal ResultPerforming OrganizationAddressCity/State/ZIP Code Phone Number [facility] [address] [place] [address], [facility] [address] [place] [address] * HCV Ab Scrn w/Reflex to HCV PCR, Serum (12/12/2018 5:58 PM TRAINING MANAGER)ComponentValue Ref RangeTest MethodAnalysis TimePerformed AtPathologist SignatureHCV Ab Screen, UUodaoacxSsfxhxdm13/24/2019 10:26 PM [facility]PPORT CENTERComment:Olarxj-go-xhnfuc ratio is <1.00.Specimen (Source) Anatomical Location / LateralityCollection Method / VolumeCollection Time Received TimeBlood (Blood, Venous)12/12/2018 5:58 PM CST12/12/2018 7:59 PM TRAINING MANAGER Narrative Authorizing ProviderResult TypeResult StatusEliyoanna Yip APRN C.N.P., D.N.P.LAB MICROBIOLOGY - BLOOD ORDERABLESFinal ResultPerforming Organization AddressCity/State/ZIP CodePhone Number [facility] [address] [place] [address] * Hepatitis B Surface Antigen (12/12/2018 5:58 PM TRAINING MANAGER)ComponentValueRef Range Test MethodAnalysis TimePerformed AtPathologist SignatureHBs Antigen, S NtepkhufRmsqmkhh47/24/2019 10:[address] [facility] MED[facility] CENTERpecimen (Source)Anatomical Location / LateralityCollection Method / VolumeCollection TimeReceived TimeBlood (Blood, Venous)12/12/2018 5:58 PM TRAINING MANAGER 12/12/2018 7:59 PM TRAINING MANAGER Narrative Authorizing ProviderResult TypeResult StatusEliyoanna Yip APRN, C.N.P., D.N.P.LAB MICROBIOLOGY - BLOOD ORDERABLESFinal ResultPerforming Organization AddressCity/State/ZIP CodePhone Number [facility] [address] [place] [place] [address] from Last 3 Months or Most Recently Relevant to Health Maintenance Additional Health Concerns InfectionOnset DateLast IndicatedProtective Bhnaecnrdpl26/14/202304/ Insurance Advance Directives For more information, please contact: [phone] TypeDate RecordedPatient RepresentativeExplanationAdvance Directive12/08/2024 9:32 AM* Natalya Martinez * Charles LARIOS/ADVOCATE/AGENT/COUNTY ENGINEER/SURROGATE * Full Code (Latest Code Status on File) Date ActivatedDate InactivatedComments07/02/2025 8:48 PM07/06/2025 5:08 PMQuestion AnswerCommentsFull Code:* Discussed * Full Code Date ActivatedDate InactivatedComments06/24/2025 3:03 PM06/27/2025 2:26 PMQuestion AnswerCommentsFull Code:* Discussed * Full Code Date ActivatedDate InactivatedComments06/12/2025 4:47 PM06/13/2025 7:27 PMQuestion AnswerCommentsFull Code:* Discussed * Full Code Date ActivatedDate InactivatedComments05/28/2025 3:47 PM05/29/2025 6:37 PMQuestion AnswerCommentsFull Code:* Discussed * Full Code Date ActivatedDate InactivatedComments12/19/2024 7:15 AM12/27/2024 5:31 PMQuestion AnswerCommentsFull Code:* Discussed NameRelationshipHealthcare Agent RelationshipCommunicationBrenda FletcherMother Health Care Agent* Charles DeMannSignificant OtherFirst Alternate Health Care Agent* Care Teams Team MemberRelationshipSpecialtyStart DateEnd Date Elsewhere, Pcp PCP - GeneralInternal Ypwwioha15/5/25
--- OUTSIDE RECORDS SUMMARY | 2025-10-31 18:54 | XMS_ITS | Encounter Summary ---
Author Organization [facility] Address [address] [place] [address] Care Team Providers Care Supervisor Production Department Name Role Phone Elsewhere, Pcp Primary Care Provider Unavailabl e Reason for Visit * ReasonOnset DateCommentsTreatment Plan Hmffjp2910/30/2025ED follow up Encounter Details DateTypeDepartmentCare Team (Latest Contact Info)Ddlfrnslhxz16/12/2025Clinical Communication Department of Obstetrics and Gynecology in [place], [place] [address] [place] [address] Prescheduling, Provider Treatment Plan Review (ED follow up ) Social History Tobacco UseTypesPacks/DayYears UsedDateSmoking Tobacco: NeverSmokeless [...] before you got the money to buymore.Patient viaarpyu70/25/2025Within the past 12 months, the food you bought just didn't last and you didn't have money to get more.Patient lgfmfxea14/25/2025PRAPARE - TransportationAnswerDate RecordedIn the past 12 months, has lack of transportation kept you from medical appointments or from getting medications?No08/13/2025In the past 12 months, has lack of transportation kept you from meetings, work, or from getting things needed for daily living?No08/13/2025HC UtilitiesAnswerDate RecordedIn the past 12 months has the [place], gas, oil, or water [employer] threatened to shut off services in your home?Patient /25/2025Postpartum DepressionAnswerDate RecordedPHQ- 9 Total Score (max 27)12007/08/2025Housing StabilityAnswerDate RecordedWhat is your living situation today?I have a steady place to live08/13/2025Education AnswerDate RecordedWhat is the highest level of school you have completed or the highest degree you have received?Some college, no kbjvcc3304/24/2019 CommentsNoSex and Gender InformationValueDate RecordedSex Assigned at Wliuxa5312/26/2018 8:37 PM CSTLegal UjtVsgmkh14/02/2017 2:43 PM CSTGender Identity Erblnw8512/26/2018 8:37 PM CSTSexual OrientationChoose not to lgkakyyc16/17/2021 3:46 PM CDTdocumented as of this encounter Plan of Treatment DateTypeDepartmentCare Team (Latest Contact Info)Zoufifubaoz63/29/2025 9:00 AM CSTOffice Visit Department of Obstetrics and Gynecology in [place], [place] [address] [place] [address] Alice Linares M.D. [address] [place] [phone] 12/04/2025 1:30 PM CSTClinical Communication Virtual Review in [place], [place] [address] [place] [phone] 12/07/2025 8:10 AM CSTLab Department of Laboratory Medicine and Pathology, [facility] in [place], [place] [address] [place] [phone] Jessica Rousseau M.B.B.S. [address] [place] [phone] 12/07/2025 9:15 AM CSTAppointment Outpatient Procedure Center in [place], [place] [address] [place] [phone] Jessica Rousseau M.B.B.S. [address] [place] [phone] 12/07/2025 11:00 AM CSTDiagnostic Division of Pulmonary Medicine in [place], [place] [address] [place] [phone] Jessica Rousseau M.B.B.S. [address] [place] [phone] 12/07/2025 1:00 PM CSTOffice Visit [facility] [place], [place] [address] [place] [phone] Jessica Rousseau M.B.B.S. [address] [place] [phone] 12/07/2025 1:30 PM CSTNurse Only Pedro [facility] in [place], [place] [address] [place] [phone] Jessica Rousseau M.B.B.S. [address] [place] [phone] 12/07/2025 2:00 PM CSTOffice Visit Pedro sanchez [facility] in [place], [place] [address] [place] [phone] Jessica Rousseau M.B.B.S. [address] [place] [address] 12/07/2025 3:00 PM CSTOffice Visit Department of Palliative Care in [place], [place] [address] [place] [phone] Martine Pardo B.M.BKatalinaS., BKatalinaM., B.Ch. [address] [place] [phone] documented as of this encounter Visit Diagnoses Not on filedocumented in this encounter Additional Health Concerns InfectionOnset DateLast IndicatedResolved TimeProtective Oinvrfmupjr79/14/2023 03/02/2023ssessmentNoted TimePHQ-9 Depression Total Score: 12007/08/2025 9:42 AM CDTdocumented as of this encounter Care Teams Team MemberRelationshipSpecialtyStart DateEnd Date Elsewhere, Pcp PCP - GeneralInternal Hcnffanj10/5/25documented as of this encounter
--- OUTSIDE RECORDS SUMMARY | 2025-10-31 18:55 | XMS_ITS | Encounter Summary ---
Author Organization [facility] Address [address] [place] [address] Care Team Providers Care Back Hand Name Role Phone Elsewhere, Pcp Primary Care Provider Unavailabl e Encounter Details DateTypeDepartmentCare Team (Latest Contact Info)Bhuhjlhlhfj08/12/2025Orders Only [facility] in [place], [place] [address] [place] [phone] Devi Roper, KARON, C.N.P., D.N.P. [address] [place] [address] Social History Tobacco UseTypesPacks/DayYears UsedDateSmoking Tobacco: NeverSmokeless [...] before you got the money to buymore.Patient szfxholi23/25/2025Within the past 12 months, the food you bought just didn't last and you didn't have money to get more.Patient ajhovdcx92/25/2025PRAPARE - TransportationAnswerDate RecordedIn the past 12 months, has lack of transportation kept you from medical appointments or from getting medications?No08/13/2025In the past 12 months, has lack of transportation kept you from meetings, work, or from getting things needed for daily living?No08/13/2025HC UtilitiesAnswerDate RecordedIn the past 12 months has the electric, gas, oil, or water [employer] threatened to shut off services in your home?Patient hbyhaiqj66/25/2025Postpartum DepressionAnswerDate RecordedPHQ- 9 Total Score (max 27)12007/08/2025Housing StabilityAnswerDate RecordedWhat is your living situation today?I have a steady place to live08/13/2025Education AnswerDate RecordedWhat is the highest level of school you have completed or the highest degree you have received?Some college, no mrvvmv7804/24/2019 CommentsNoSex and Gender InformationValueDate RecordedSex Assigned at Ligovv0112/26/2018 8:37 PM CSTLegal NoaKxufen08/02/2017 2:43 PM CSTGender Identity Jsvxsk2512/26/2018 8:37 PM CSTSexual OrientationChoose not to hankminv40/17/2021 3:46 PM CDTdocumented as of this encounter Plan of Treatment DateTypeDepartmentCare Team (Latest Contact Info)Bshoivaguyg73/29/2025 9:00 AM CSTOffice Visit Department of Obstetrics and Gynecology in [place], [place] [address] [place] [phone] Alice Linares M.D. [address] [place] [phone] 12/04/2025 1:30 PM CSTClinical Communication Virtual Review in [place], [place] [address] [place] [address] 12/07/2025 8:10 AM CSTLab Department of Laboratory Medicine and Pathology, [facility] in [place], [place] [address] [place] [phone] Jessica Rousseau M.B.B.S. [address] [place] [phone] 12/07/2025 9:15 AM CSTAppointment Outpatient Procedure Center in [place], [place] [address] [place] [phone] Jessica Rousseau M.B.B.S. [address] [place] [phone] 12/07/2025 11:00 AM CSTDiagnostic Division of Pulmonary Medicine in [place], [place] [address] [place] [phone] Jessica Rousseau M.B.B.S. [address] [place] [phone] 12/07/2025 1:00 PM CSTOffice Visit Pedro [facility] in [place], [place] [address] [place] [phone] Jessica Rousseau M.B.B.S. [address] [place] [phone] 12/07/2025 1:30 PM CSTNurse Only [facility] Transplantation and Clinical Regeneration in [place], [place] [address] [place] [address] Jessica Rousseau M.B.B.S. [address] [place] [phone] 12/07/2025 2:00 PM CSTOffice Visit [facility] Transplantation and Clinical Regeneration in [place], [place] [address] [place] [phone] Jessica Rousseau M.B.B.S. [address] [place] [phone] 12/07/2025 3:00 PM CSTOffice Visit Department of Palliative Care in [place], [place] [address] [place] [phone] Martine Pardo B.M.B.S., B.M., B.Ch. [address] [place] [phone] documented as of this encounter Visit Diagnoses Not on filedocumented in this encounter Additional Health Concerns InfectionOnset DateLast IndicatedResolved TimeProtective Amsvkqfvccb99/14/2023 03/02/2023ssessmentNoted TimePHQ-9 Depression Total Score: 9:42 AM CDTdocumented as of this encounter Care Teams Team MemberRelationshipSpecialtyStart DateEnd Date Elsewhere, Pcp PCP - GeneralInternal Zvycsdwl58/5/25documented as of this encounter
--- OUTSIDE RECORDS SUMMARY | 2025-10-31 18:55 | XMS_ITS | Encounter Summary ---
Author Organization [facility] Address [address] [place] [address] Care Team Providers Care Advertising Account Manager Name Role Phone Elsewhere, Pcp Primary Care Provider Unavailabl e Reason for Visit * ReasonOnset RddoJbxdbebcJbmsyubmaogmu67/11/2025Having a hard time with all her symptoms Encounter Details DateTypeDepartmentCare Team (Latest Contact Info)Rlxuppowvhm10/11/2025linical Communication Pedro [facility] for Trans[facility] and Clinical Regeneration in [place], [place] [address] [place] [address] Jessica Rousseau M.B.B.S. [address] [place] [address] Communication (Having a hard time with all her symptoms ) Social History Tobacco UseTypesPacks/DayYears UsedDateSmoking Tobacco: [...] before you got the money to buymore.Patient frmgajnw35/25/2025Within the past 12 months, the food you [...] RecordedIn the past 12 months has the [employer], gas, oil, or water [employer] threatened to shut off services in your home?Patient zzcycdfo06/25/2025Postpartum DepressionAnswerDate RecordedPHQ- 9 Total Score (max 27)12007/08/2025Housing StabilityAnswerDate RecordedWhat is your living situation today?I have a steady place to live08/13/2025Education AnswerDate RecordedWhat is the highest level of school you have completed or the highest degree you have received?Some college, no mkroii9204/24/2019 CommentsNoSex and Gender InformationValueDate RecordedSex Assigned at Hodcjw8512/26/2018 8:37 PM CSTLegal HhlUzegpy87/02/2017 2:43 PM CSTGender Identity Dfnwqy9912/26/2018 8:37 PM CSTSexual OrientationChoose not to haidpvzv50/17/2021 3:46 PM CDTdocumented as of this encounter Plan of Treatment DateTypeDepartmentCare Team (Latest Contact Info)Isvxqudjeis37/29/2025 9:00 AM CSTOffice Visit Department of Obstetrics and Gynecology in [place], [place] [address] [place] [phone] Alice Linares M.D. [address] [place] [phone] 12/04/2025 1:30 PM CSTClinical Communication Virtual Review in [place], [place] 200 [place] [address] 12/07/2025 8:10 AM CSTLab Department of Laboratory Medicine and Pathology, [facility] in [place], [place] [address] [place] [phone] Jessica Rousseau M.B.B.S. [address] [place] [phone] 12/07/2025 9:15 AM CSTAppointment Outpatient Procedure Center in [place], [place] [address] [place] [phone] Jessica Rousseau M.B.B.S. [address] [place] [phone] 12/07/2025 11:00 AM CSTDiagnostic Division of Pulmonary Medicine in [place], [place] [address] [place] [phone] Jessica Rousseau M.B.B.S. [address] [place] [phone] 12/07/2025 1:00 PM CSTOffice Visit [facility] in [place], [place] [address] [place] [phone] Jessica Rousseau M.B.B.S. [address] [place] [phone] 12/07/2025 1:30 PM CSTNurse Only [facility] Transplantation and Clinical Regeneration in [place], [place] [address] [place] [phone] Jessica Rousseau M.B.B.S. [address] [place] [phone] 12/07/2025 2:00 PM CSTOffice Visit [facility] Transplantation and Clinical Regeneration in [place], [place] [address] [place] [phone] Jessica Rousseau M.B.B.S. [address] [place] [phone] 12/07/2025 3:00 PM CSTOffice Visit Department of Palliative Care in [place], [place] [address] [place] [phone] Martine Pardo B.M.B.S., B.M., B.Ch. [address] [place] [phone] documented as of this encounter Visit Diagnoses Not on filedocumented in this encounter Additional Health Concerns InfectionOnset DateLast IndicatedResolved TimeProtective Dlxgdijouln88/14/2023 03/02/2023ssessmentNoted TimePHQ-9 Depression Total Score: 12007/08/2025 9:42 AM CDTdocumented as of this encounter Care Teams Team MemberRelationshipSpecialtyStart DateEnd Date Elsewhere, Pcp PCP - GeneralInternal Vdlyotry88/5/25documented as of this encounter
--- OUTSIDE RECORDS SUMMARY | 2025-10-31 18:55 | XMS_ITS | Encounter Summary ---
Author Organization [facility] Address [address] [place] [address] Care Team Providers Care Hides Inspector Name Role Phone Elsewhere, Pcp Primary Care Provider Unavailabl e Encounter Details DateTypeDepartmentCare Team (Latest Contact Info)Znxmpsbuhdo38/13/2025Clinical Communication [facility], Ninth Floor [address] [place] [address] Aishwarya Quintana, RKatalinaNKatalina Social History Tobacco UseTypesPacks/DayYears UsedDateSmoking Tobacco: NeverSmokeless [...] before you got the money to buymore.Patient ejwccpxs87/25/2025Within the past 12 months, the food you bought just didn't last and you didn't have money to get more.Patient ptwykajm72/25/2025PRAPARE - TransportationAnswerDate RecordedIn the past 12 months, has lack of transportation kept you from medical appointments or from getting medications?No08/13/2025In the past 12 months, has lack of transportation kept you from meetings, work, or from getting things needed for daily living?No08/13/2025HC UtilitiesAnswerDate RecordedIn the past 12 months has the [employer], gas, oil, or water [employer] threatened to shut off services in your home?Patient tfqvhqzo04/25/2025Postpartum DepressionAnswerDate RecordedPHQ- 9 Total Score (max 27)12007/08/2025Housing StabilityAnswerDate RecordedWhat is your living situation today?I have a steady place to live08/13/2025Education AnswerDate RecordedWhat is the highest level of school you have completed or the highest degree you have received?Some college, no wapavi8904/24/2019 CommentsNoSex and Gender InformationValueDate RecordedSex Assigned at Setzfj9212/26/2018 8:37 PM CSTLegal YijDtohjl64/02/2017 2:43 PM CSTGender Identity Xmtnec0112/26/2018 8:37 PM CSTSexual OrientationChoose not to gyjnkrpd31/17/2021 3:46 PM CDTdocumented as of this encounter Miscellaneous Notes * Telephone Encounter - Aishwarya Quintana R.N. - 10/31/2025 3:40 PM READING EFFICIENCY COURSE DIRECTOR Pt called regarding abdominal and back pain. Pt reported intermittent SOB for the past few days. Ptreported going to the [place] [facility] yesterday and addressed the previously mentioned concerns. BMT sx consulted for pain management and SOB. The overall recommendations are listed below: -Recommendations for pain: take dilaudid as prescribed, take tylenol Q6H (do not exceed over 4g in 24 hours), and apply heat and/or ice to the affected areas. -Recommendations for SOB: if worsens, go to the local ER or call 911 (if unable to safely get to local ER). Pt instructed to stop taking posaconazole and bactrim. Per BMT sx, pt has appropriate coverage after stopping the previously mentioned antibiotics. ING EFFICIENCY COURSE DIRECTOR documented in this encounter Plan of Treatment DateTypeDepartmentCare Team (Latest Contact Info)Flcucphdtha58/29/2025 9:00 AM CSTOffice Visit Department of Obstetrics and Gynecology in [address] [phone] Alice Linares M.D. [address] [place] [phone] 12/04/2025 1:30 PM CSTClinical Communication Virtual Review in [address] [phone] 12/07/2025 8:10 AM CSTLab Department of Laboratory Medicine and Pathology, [facility], in [address] [phone] Jessica Rousseau M.B.B.S. [address] [place] [phone] 12/07/2025 9:15 AM CSTAppointment Outpatient Procedure Center in [address] [phone] Jessica Rousseau M.B.B.S. [address] [place] [phone] 12/07/2025 11:00 AM CSTDiagnostic Division of Pulmonary Medicine in [place], [place] [address] [place] [address] Jessica Rousseau M.B.B.S. [address] [place] [phone] 12/07/2025 1:00 PM CSTOffice Visit [facility] in [place], [place] [address] [place] [address] Jessica Rousseau M.B.B.S. [address] [place] [phone] 12/07/2025 1:30 PM CSTNurse Only [facility] Transplantation and Clinical Regeneration in [place], [place] [address] [place] [address] Jessica Rousseau M.B.B.S. [address] [place] [phone] 12/07/2025 2:00 PM CSTOffice Visit [facility] Transplantation and Clinical Regeneration in [place], [place] [address] [place] [address] Jessica Rousseau M.B.B.S. [address] [place] [phone] 12/07/2025 3:00 PM CSTOffice Visit Department of Palliative Care in [place], [place] [address] [place] [phone] Martine Pardo B.M.B.S., B.M., B.Ch. [address] [place] [phone] documented as of this encounter Visit Diagnoses Not on filedocumented in this encounter Additional Health Concerns InfectionOnset DateLast IndicatedResolved TimeProtective Cfjdvvznlhc82/14/2023 03/02/2023ssessmentNoted TimePHQ-9 Depression Total Score: 9:42 AM CDTdocumented as of this encounter Care Teams Team MemberRelationshipSpecialtyStart DateEnd Date Elsewhere, Pcp PCP - GeneralInternal Krelipkb58/5/25documented as of this encounter
--- OUTSIDE RECORDS SUMMARY | 2025-10-31 18:55 | XMS_ITS | Encounter Summary ---
Author Organization [facility] Address [address] [place] [address] Care Team Providers Care Editor Managing Director Name Role Phone Elsewhere, Pcp Primary Care Provider Unavailabl e Reason for Visit * ReasonOnset DateCommentsNurse Cfnggabkko76/10/2025 Encounter Details DateTypeDepartmentCare Team (Latest Contact Info)Cseovkysmuh71/10/2025linical Communication Department of Palliative Care in [place], [place] [address] [place] [address] Felicia Watt APRN, C.N.P., M.S.N. [address] [place] [address] Nurse Assessment Social History Tobacco UseTypesPacks/DayYears UsedDateSmoking Tobacco: NeverSmokeless [...] before you got the money to buymore.Patient fvrjcofd34/25/2025Within the past 12 months, the food you [...] RecordedIn the past 12 months has the [employer], gas, oil, or water company threatened to shut off services in your home?Patient krovydov63/25/2025Postpartum DepressionAnswerDate RecordedPHQ- 9 Total Score (max 27)12007/08/2025Housing StabilityAnswerDate RecordedWhat is your living situation today?I have a steady place to live08/13/2025Education AnswerDate RecordedWhat is the highest level of school you have completed or the highest degree you have received?Some college, no ryrffx7204/24/2019 CommentsNoSex and Gender InformationValueDate RecordedSex Assigned at [employer]6112/26/2018 8:37 PM CSTLegal DllTupefo09/02/2017 2:43 PM CSTGender Identity Cjqaql4712/26/2018 8:37 PM CSTSexual OrientationChoose not to /17/2021 3:46 PM CDTdocumented as of this encounter Miscellaneous Notes * Telephone Encounter - Mallory Delgadillo R.N., CHPN - 10/28/2025 2:17 PM CST ASSESSMENT Radha Martinez is a 35 y.o. 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 Her last visit with our team was 08/11/25. Patient calls today with complaints of nausea, vomiting, abdominal pain and back pain since last , 10/22/25. She reports she has been vomiting every 2 hours since 10/26/25. She also hasdiarrhea with up to three diarrhea stools per day since 10/26/25. Patient has been taking Zofran every 4 hours which is not helpful for nausea. She reports being able to keep fluids down despite vomiting every 2 hours. Patient has had little solid food intake but has been able to eat toast and crackers. Fever two days ago was 101 F but has not had a fever since. Patient states she was seen by her Hematology team on 10/26/25 and local urgent care through [facility] where she tested negative for COVID and Influenza. Patient is asking for recommendations. PLAN Discussed with Twin Watt CNP. Agree with recommendations from PCP office that urgent evaluation is needed. She may need hydration and/or urgent imaging and we recommend ER evaluation. As we have not seen her for an in-person visit since July, we will change 10/30 video visit toin-person per our prescribing guidelines. Patient agrees. Disposition/Recommendation: recommended to report to the nearest emergency department. Information/Education: patient/caller able to teach back. Caller agreeable to plan of care: yes. The following references were used: nursing clinical judgement and provider Twin Watt CNP. ING OFFICER documented in this encounter Plan of Treatment DateTypeDepartmentCare Team (Latest Contact Info)Mckvhuxhviv14/29/2025 9:00 AM CSTOffice Visit Department of Obstetrics and Gynecology in [place], [place] [address] [place] [address] Alice Linares M.D. [address] [place] [phone] 12/04/2025 1:30 PM CSTClinical Communication Virtual Review in [place], [place] 200 [place] [address] 12/07/2025 8:10 AM CSTLab Department of Laboratory Medicine and Pathology, [facility], in [place], [place] [address] [place] [phone] Jessica Rousseau M.B.B.S. [address] [place] [phone] 12/07/2025 9:15 AM CSTAppointment Outpatient Procedure Center in [place], [place] [address] [place] [phone] Jessica Rousseau M.B.B.S. [address] [place] [phone] 12/07/2025 11:00 AM CSTDiagnostic Division of Pulmonary Medicine in [place], [place] [address] [place] [phone] Jessica Rousseau M.B.B.S. [address] [place] [phone] 12/07/2025 1:00 PM CSTOffice Visit [facility] in [place], [place] [address] [place] [phone] Jessica Rousseau M.B.B.S. [address] [place] [phone] 12/07/2025 1:30 PM CSTNurse Only [facility] in [place], [place] [address] [place] [phone] Jessica Rousseau M.B.B.S. [address] [place] [phone] 12/07/2025 2:00 PM CSTOffice Visit Pedro sanchez [facility] for Transplantation and Clinical Regeneration in [place], [place] [address] [place] [phone] Jessica Rousseau M.B.B.S. [address] [place] [phone] 12/07/2025 3:00 PM CSTOffice Visit Department of Palliative Care in [place], [place] [address] [place] [phone] Martine Pardo B.M.B.S., B.M., B.Ch. [address] [place] [phone] documented as of this encounter Visit Diagnoses Not on filedocumented in this encounter Additional Health Concerns InfectionOnset DateLast IndicatedResolved TimeProtective Erqnxdjulyg44/14/2023 03/02/2023ssessmentNoted TimePHQ-9 Depression Total Score: 9:42 AM CDTdocumented as of this encounter Care Teams Team MemberRelationshipSpecialtyStart DateEnd Date Elsewhere, Pcp PCP - GeneralInternal Mtuqbglx43/5/25documented as of this encounter
--- OUTSIDE RECORDS SUMMARY | 2025-10-31 18:55 | XMS_ITS | Encounter Summary ---
Author Organization [facility] Address [address] [place] [address] Care Team Providers Care Medicaid Analyst Name Role Phone Elsewhere, Pcp Primary Care Provider Unavailabl e Encounter Details DateTypeDepartmentCare Team (Latest Contact Info)Arngeixikjb80/13/2025Orders Only [facility], Ninth [place] [address] [place] [address] Racquel Candelario, EXPERIMENTAL PLASTICS FABRICATOR, C.N.P. [address] [place] [address] Social History Tobacco UseTypesPacks/DayYears UsedDateSmoking Tobacco: NeverSmokeless [...] before you got the money to buymore.Patient ypsfzkei33/25/2025Within the past 12 months, the food you bought just didn't last and you didn't have money to get more.Patient kdbofjao44/25/2025PRAPARE - TransportationAnswerDate RecordedIn the past 12 months, has lack of transportation kept you from medical appointments or from getting medications?No08/13/2025In the past 12 months, has lack of transportation kept you from meetings, work, or from getting things needed for daily living?No08/13/2025HC UtilitiesAnswerDate RecordedIn the past 12 months has the [employer], gas, oil, or water [employer] threatened to shut off services in your home?Patient ulahsxje41/25/2025Postpartum DepressionAnswerDate RecordedPHQ- 9 Total Score (max 27)12007/08/2025Housing StabilityAnswerDate RecordedWhat is your living situation today?I have a steady place to live08/13/2025Education AnswerDate RecordedWhat is the highest level of school you have completed or the highest degree you have received?Some college, no mhyfyd5904/24/2019 CommentsNoSex and Gender InformationValueDate RecordedSex Assigned at Sildfu8912/26/2018 8:37 PM CSTLegal NjzMzkuyc55/02/2017 2:43 PM CSTGender Identity Dpbyix0612/26/2018 8:37 PM CSTSexual OrientationChoose not to ecxgndrb63/17/2021 3:46 PM CDTdocumented as of this encounter Plan of Treatment DateTypeDepartmentCare Team (Latest Contact Info)Akzpwpxxtxj69/29/2025 9:00 AM CSTOffice Visit Department of Obstetrics and Gynecology in [place], [place] [address] [place] [phone] Alice Linares M.D. [address] [place] [phone] 12/04/2025 1:30 PM CSTClinical Communication Virtual Review in [place], [place] [address] [place] [address] 12/07/2025 8:10 AM CSTLab Department of Laboratory Medicine and Pathology, [facility] in [place], [place] [address] [place] [phone] Jessica Rousseau M.B.B.S. [address] [place] [phone] 12/07/2025 9:15 AM CSTAppointment Outpatient Procedure Center in [place], [place] [address] [place] [phone] Jessica Rousseau M.B.B.S. [address] [place] [phone] 12/07/2025 11:00 AM CSTDiagnostic Division of Pulmonary Medicine in [place], [place] [address] [place] [phone] Jessica Rousseau M.B.B.S. [address] [place] [phone] 12/07/2025 1:00 PM CSTOffice Visit Pedro MantillaR [facility] in [place], [place] [address] [place] [address] Jessica Rousseau M.B.B.S. [address] [place] [phone] 12/07/2025 1:30 PM CSTNurse Only Pedro MantillaR [facility] in [place], [place] [address] [place] [address] Jessica Rousseau M.B.B.S. [address] [place] [phone] 12/07/2025 2:00 PM CSTOffice Visit Pedro Fatima [facility] Trans[facility] Clinical [facility] in [place], [place] [address] [place] [phone] Jessica Rousseau M.B.B.S. [address] [place] [phone] 12/07/2025 3:00 PM CSTOffice Visit Department of Palliative Care in [place], [place] [address] [place] [phone] Martine Pardo B.MKatalinaB.S., B.M., B.Ch. [address] [place] [phone] documented as of this encounter Visit Diagnoses Not on filedocumented in this encounter Additional Health Concerns InfectionOnset DateLast IndicatedResolved TimeProtective Demwaogjjlq21/14/2023 03/02/2023ssessmentNoted TimePHQ-9 Depression Total Score: 12007/08/2025 9:42 AM CDTdocumented as of this encounter Care Teams Team MemberRelationshipSpecialtyStart DateEnd Date Elsewhere, Pcp PCP - GeneralInternal Ldojlqob98/5/25documented as of this encounter
--- OUTSIDE RECORDS SUMMARY | 2025-10-31 18:55 | XMS_ITS | Encounter Summary ---
Author Organization [facility] Address [address] [place] [address] Care Team Providers Care Home Health Scheduler Name Role Phone Elsewhere, Pcp Primary Care Provider Unavailabl e Reason for Referral * Transplant (Routine) - AuthorizedSpecialtyDiagnoses / ProceduresReferred By ContactReferred To ContactTransplant Devi Roper APRN, C.N.P., D.N.P. [address] [place] [address] Phone: tel: fax: [facility] Referral IDStatusReasonStart DateExpiration DateVisits RequestedVisits [id number] Scheduling Instructions Please schedule with ANUPAM for 60 minutes., Per Julia Roper pt needs to be seen today. [facility]K CONSULTANT Reason for Visit * ReasonOnset OhdlMtxqmdxwPaykycirprdhe43/08/2025Sick Encounter Details DateTypeDepartmentCare Team (Latest Contact Info)Oohdlcfsizf96/08/2025Clinical Communication Pedro [facility]anchez [facility] in [place], [place] [address] [place] [address] Jessica Rousseau M.B.B.S. [address] [place] [address] Communication (Sick ) Social History Tobacco UseTypesPacks/DayYears UsedDateSmoking Tobacco: [...] before you got the money to buymore.Patient tzujzdlc79/25/2025Within the past 12 months, the food you bought just didn't last and you didn't have money to get more.Patient odkusmra86/25/2025PRAPARE - TransportationAnswerDate RecordedIn the past 12 months, has lack of transportation kept you from medical appointments or from getting medications?No08/13/2025In the past 12 months, has lack of transportation kept you from meetings, work, or from getting things needed for daily living?No08/13/2025HC UtilitiesAnswerDate RecordedIn the past 12 months has the electric, gas, oil, or water company threatened to shut off services in your home?Patient ifkevwpb30/25/2025Postpartum DepressionAnswerDate RecordedPHQ- 9 Total Score (max 27)12007/08/2025Housing StabilityAnswerDate RecordedWhat is your living situation today?I have a steady place to live08/13/2025Education AnswerDate RecordedWhat is the highest level of school you have completed or the highest degree you have received?Some college, no kkhkcl0004/24/2019 CommentsNoSex and Gender InformationValueDate RecordedSex Assigned at Tnkvtf4012/26/2018 8:37 PM CSTLegal TwzVadxfa22/02/2017 2:43 PM CSTGender Identity Dlyiqv6712/26/2018 8:37 PM CSTSexual OrientationChoose not to ccyqmufr01/17/2021 3:46 PM CDTdocumented as of this encounter Plan of Treatment DateTypeDepartmentCare Team (Latest Contact Info)Cmihspihoqb61/29/2025 9:00 AM CSTOffice Visit Department of Obstetrics and Gynecology in [address] [phone] Alice Linares M.D. [address] [place] [phone] 12/04/2025 1:30 PM CSTClinical Communication Virtual Review in [place], [place] [address] [place] [phone] 12/07/2025 8:10 AM CSTLab Department of Laboratory Medicine and Pathology, [facility], in [address] [phone] Jessica Rousseau M.B.B.S. [address] [place] [phone] 12/07/2025 9:15 AM CSTAppointment Outpatient Procedure Center in [address] [phone] Jessica Rousseau M.B.B.S. [address] [place] [phone] 12/07/2025 11:00 AM CSTDiagnostic Division of Pulmonary Medicine in [place], [place] [address] [place] [phone] Jessica Rousseau M.B.B.S. [address] [place] [phone] 12/07/2025 1:00 PM CSTOffice Visit [facility] in [place], [place] [address] [place] [address] Jessica Rousseau M.B.B.S. [address] [place] [phone] 12/07/2025 1:30 PM CSTNurse Only [facility] in [place], [place] [address] [place] [phone] Jessica Rousseau M.B.B.S. [address] [place] [phone] 12/07/2025 2:00 PM CSTOffice Visit [facility] in [place], [place] [address] [place] [phone] Jessica Rousseau M.B.B.S. [address] [place] [phone] 12/07/2025 3:00 PM CSTOffice Visit Department of Palliative Care in [place], [place] [address] [place] [phone] Martine Pardo B.M.B.S., B.M., B.Ch. [address] [place] [phone] NameTypePriorityAssociated DiagnosesOrder ScheduleTransplant Bone marrow office visit (clinic)Outpatient ReferralRoutineExpected: 10/26/2025 (Approximate), Expires: 01/24/2027documented as of this encounter Results * LD (Lactate Dehydrogenase) (10/26/2025 1:40 PM NETWORK CONSULTANT)ComponentValueRef RangeTest MethodAnalysis TimePerformed AtPathologist SignatureHospital Deanna OZ154301 - 222 U/L112/27/2024 2:46 PM CSTDTLSpecimen (Source)Anatomical Location / LateralityCollection Method / VolumeCollection TimeReceived TimeBlood (Blood, Venous)10/26/2025 1:40 PM CST10/26/2025 2:19 PM NETWORK CONSULTANT Narrative Authorizing ProviderResult TypeResult StatusDevi Roper APRN, C.N.P., D.N.P.LAB BLOOD NON ADD-ONFinal ResultPerforming OrganizationAddress City/State/[place] [address] * Sodium (10/26/2025 1:40 PM NETWORK CONSULTANT)ComponentValueRef RangeTest MethodAnalysis Time Performed AtPathologist SignatureSodium, H741025 - 145 mmol/L112/27/2024 2:39 PM CSTDTLSpecimen (Source)Anatomical Location / LateralityCollection Method / VolumeCollection TimeReceived TimeBlood (Blood, Venous)10/26/2025 1:40 PM NETWORK CONSULTANT 10/26/2025 2:04 PM NETWORK CONSULTANT Narrative Authorizing ProviderResult TypeResult StatusDevi Roper APRN, C.N.P., D.N.P.LAB BLOOD ADD-ONFinal ResultPerforming OrganizationAddressCity/State/[place] [address] * Potassium (10/26/2025 1:40 PM NETWORK CONSULTANT)ComponentValueRef RangeTest MethodAnalysis TimePerformed AtPathologist SignaturePotassium, S3.83.6 - 5.2 mmol/L112/27/2024 2:39 PM CSTDTLSpecimen (Source)Anatomical Location / LateralityCollection Method / VolumeCollection TimeReceived TimeBlood (Blood, Venous)10/26/2025 1:40 PM CST10/26/2025 2:04 PM NETWORK CONSULTANT Narrative Authorizing ProviderResult TypeResult StatusDevi Roper APRN, C.N.P., D.N.P.LAB BLOOD ADD-ONFinal ResultPerforming OrganizationAddressCity/State/ZIP CodePhone Number [facility] [address] [place] [address], [facility] [address] [place] [address] * Magnesium (10/26/2025 1:40 PM NETWORK CONSULTANT)ComponentValueRef RangeTest MethodAnalysis TimePerformed AtPathologist SignatureMagnesium, S2.11.7 - 2.3 mg/dL10/26/2025 2:39 PM CSTDTLSpecimen (Source)Anatomical Location / LateralityCollection Method / VolumeCollection TimeReceived TimeBlood (Blood, Venous)10/26/2025 1:40 PM CST10/26/2025 2:04 PM NETWORK CONSULTANT Narrative Authorizing ProviderResult TypeResult StatusDevi Roper APRN, C.N.P., D.N.P.LAB BLOOD ADD-ONFinal ResultPerforming OrganizationAddressCity/State/ZIP CodePhone Number [facility] [address] [place] [address], [facility] [address] [place] [address] * (ABNORMAL) Glucose, Fasting (10/26/2025 1:40 PM NETWORK CONSULTANT)ComponentValueRef Range Test MethodAnalysis TimePerformed AtPathologist SignatureGlucose, P155(H)70 - 100 mg/dL10/26/2025 3:45 PM CSTDTLLast Jntvyn4gw81/08/2025 2:04 PM CSTDTL Specimen (Source)Anatomical Location / LateralityCollection Method / Volume Collection TimeReceived TimeBlood (Blood, Venous)10/26/2025 1:40 PM NETWORK CONSULTANT 10/26/2025 2:04 PM NETWORK CONSULTANT Narrative Authorizing ProviderResult TypeResult StatusSatnam Foster APRN.N.P., D.N.P.LAB BLOOD NON ADD-ONFinal ResultPerforming OrganizationAddress City/State/ZIP CodePhone Number [facility] [address] [place] [address], [facility] [address] [place] [address] * Creatinine with Estimated GFR (10/26/2025 1:40 PM NETWORK CONSULTANT)ComponentValueRef Range Test MethodAnalysis TimePerformed AtPathologist SignatureCreatinine0.700.59 - 1.04 mg/dL10/26/2025 2:39 PM CSTDTLEstimated GFR (eGFR)>90>=60 mL/min/BSA 10/26/2025 2:39 PM CSTDTLComment: Estimated GFR calculated using the 2020 CKD_EPI creatinine equation. Specimen (Source)Anatomical Location / LateralityCollection Method / Volume Collection TimeReceived TimeBlood (Blood, Venous)10/26/2025 1:40 PM NETWORK CONSULTANT 10/26/2025 2:04 PM NETWORK CONSULTANT Narrative Authorizing ProviderResult TypeResult StatusSatnam Foster APRN.N.P., D.N.P.LAB BLOOD ADD-ONFinal ResultPerforming OrganizationAddressCity/State/ZIP CodePhone Number [facility] [address] [place] [address], [facility] [address] [place] [address] * (ABNORMAL) CBC no call back, reflex T/S HGB <8 (10/26/2025 1:40 PM NETWORK CONSULTANT) ComponentValueRef RangeTest MethodAnalysis TimePerformed AtPathologist FzllhoxeuBwmhuzrihf66.611.6 - 15.0 g/dL10/26/2025 2:19 PM NUEUHLIclkzlbumf85.5 35.5 - 44.9 %10/26/2025 2:19 PM CSTDTLErythrocytes4.573.92 - 5.13 x10(12)/L 10/26/2025 2:19 PM YDSZJLMFP99.278.2 - 97.9 fL10/26/2025 2:19 PM CSTDTLRBC Distrib Width13.312.2 - 16.1 %10/26/2025 2:19 PM CSTDTLPlatelet Mlbmi154964 - 371 x10(9)/L112/27/2024 2:19 PM CSTDTLLeukocytes4.13.4 - 9.6 x10(9)/L112/27/2024 2:19 PM CSTDTLNeutrophils2.571.56 - 6.45 x10(9)/L112/27/2024 2:19 PM CSTDHPM Lymphocytes0.89(L)0.95 - 3.07 x10(9)/L112/27/2024 2:19 PM CSTDTLMonocytes0.24 (L)0.26 - 0.81 x10(9)/L112/27/2024 2:19 PM CSTDTLEosinophils0.300.03 - 0.48 x10(9)/L112/27/2024 2:19 PM CSTDTLBasophils0.050.01 - 0.08 x10(9)/10/26/2025 2:19 PM CSTDTLSpecimen (Source)Anatomical Location / LateralityCollection Method / VolumeCollection TimeReceived TimeBlood (Blood, Venous)10/26/2025 1:40 PM CST10/26/2025 2:05 PM NETWORK CONSULTANT Narrative Authorizing ProviderResult TypeResult StatusKimbermary Roper APRN, C.N.P., D.N.P.LAB BLOOD NON ADD-ONFinal ResultPerforming OrganizationAddress City/State/ZIP CodePhone Number [facility] [address] [place] [address], [facility] DTL [facility] [address] [place] [address] [facility] [address] [place] [address] * Calcium, Total (10/26/2025 1:40 PM NETWORK CONSULTANT)ComponentValueRef RangeTest Method Analysis TimePerformed AtPathologist SignatureCalcium, Total, S9.68.6 - 10.0 mg/dL10/26/2025 2:39 PM CSTDTLSpecimen (Source)Anatomical Location / LateralityCollection Method / VolumeCollection TimeReceived TimeBlood (Blood, Venous)10/26/2025 1:40 PM CST10/26/2025 2:04 PM NETWORK CONSULTANT Narrative Authorizing ProviderResult TypeResult StatusDevi Roper APRN C.N.P., D.N.P.LAB BLOOD ADD-ONFinal ResultPerforming OrganizationAddressCity/State/ZIP CodePhone Number [facility] [address] [place] [address], [place] [address] * BUN (Blood Urea Nitrogen) (10/26/2025 1:40 PM NETWORK CONSULTANT)ComponentValueRef RangeTest MethodAnalysis TimePerformed AtPathologist SignatureBUN (Blood Urea Nitrogen), S86 - 21 mg/dL10/26/2025 2:39 PM CSTDTLSpecimen (Source)Anatomical Location / LateralityCollection Method / VolumeCollection TimeReceived TimeBlood (Blood, Venous)10/26/2025 1:40 PM CST10/26/2025 2:04 PM NETWORK CONSULTANT Narrative Authorizing ProviderResult TypeResult StatusDevi Rpoer APRN C.N.P., D.N.P.LAB BLOOD ADD-ONFinal ResultPerforming OrganizationAddressCity/State/ZIP CodePhone Number [facility] [address] [place] [address], [place] [address] * Bilirubin, Total (10/26/2025 1:40 PM NETWORK CONSULTANT)ComponentValueRef RangeTest Method Analysis TimePerformed AtPathologist SignatureBilirubin, Total, P0.30.0 - 1.2 mg/dL10/26/2025 2:19 PM CSTMETHSpecimen (Source)Anatomical Location / LateralityCollection Method / VolumeCollection TimeReceived TimeBlood (Blood, Venous)10/26/2025 1:40 PM CST10/26/2025 1:55 PM NETWORK CONSULTANT Narrative Authorizing ProviderResult TypeResult StatusDevi Roper APRN, C.N.P., D.N.P.LAB BLOOD ADD-ONFinal ResultPerforming OrganizationAddressCity/State/ZIP CodePhone Number [facility] [address] [place] [address], [facility] METH [facility] [address] [place] [address] * (ABNORMAL) AST (Aspartate Aminotransferase) (10/26/2025 1:40 PM NETWORK CONSULTANT)Component ValueRef RangeTest MethodAnalysis TimePerformed AtPathologist Signature Aspartate Aminotransferase (AST), P46(H)8 - 43 U/L112/27/2024 2:19 PM CSTMETH Specimen (Source)Anatomical Location / LateralityCollection Method / Volume Collection TimeReceived TimeBlood (Blood, Venous)10/26/2025 1:40 PM NETWORK CONSULTANT 10/26/2025 1:55 PM NETWORK CONSULTANT Narrative Authorizing ProviderResult TypeResult StatusDevi Roper APRN, C.N.P., D.N.P.LAB BLOOD ADD-ONFinal ResultPerforming OrganizationAddressCity/State/ZIP CodePhone Number [facility] [address] [place] [address], [facility] METH [facility] [address] [place] [address] * (ABNORMAL) ALT (Alanine Aminotransferase) (10/26/2025 1:40 PM NETWORK CONSULTANT)Component ValueRef RangeTest MethodAnalysis TimePerformed AtPathologist SignatureAlanine Aminotransferase (ALT), S61(H)7 - 45 U/L112/27/2024 2:39 PM CSTDTLSpecimen (Source)Anatomical Location / LateralityCollection Method / VolumeCollection TimeReceived TimeBlood (Blood, Venous)10/26/2025 1:40 PM CST10/26/2025 2:04 PM NETWORK CONSULTANT Narrative Authorizing ProviderResult TypeResult StatusDevi Roper APRN, C.N.P., D.N.P.LAB BLOOD ADD-ONFinal ResultPerforming OrganizationAddressCity/State/ZIP CodePhone Number [facility] [address] [place] [address], [facility] DTL [facility] [address] [place] [address] * Alkaline Phosphatase (10/26/2025 1:40 PM NETWORK CONSULTANT)ComponentValueRef RangeTest MethodAnalysis TimePerformed AtPathologist SignatureAlkaline Phosphatase, S101 35 - 104 U/L112/27/2024 2:39 PM CSTDTLSpecimen (Source)Anatomical Location / LateralityCollection Method / VolumeCollection TimeReceived TimeBlood (Blood, Venous)10/26/2025 1:40 PM CST10/26/2025 2:04 PM NETWORK CONSULTANT Narrative Authorizing ProviderResult TypeResult StatusDevi Roper APRN C.N.P., D.N.P.LAB BLOOD ADD-ONFinal ResultPerforming OrganizationAddressCity/State/[place] [address] * Albumin (10/26/2025 1:40 PM NETWORK CONSULTANT)ComponentValueRef RangeTest MethodAnalysis TimePerformed AtPathologist SignatureAlbumin, S4.53.5 - 5.0 g/dL10/26/2025 2:39 PM CSTDTLSpecimen (Source)Anatomical Location / LateralityCollection Method / VolumeCollection TimeReceived TimeBlood (Blood, Venous)10/26/2025 1:40 PM CST10/26/2025 2:04 PM NETWORK CONSULTANT Narrative Authorizing ProviderResult TypeResult StatusDevi Roper APRN, C.N.P., D.N.P.LAB BLOOD ADD-ONFinal ResultPerforming OrganizationAddressCity/State/ZIP CodePhone Number [facility] [address] [place] [address] documented in this encounter Visit Diagnoses Diagnosis 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
--- OUTSIDE RECORDS SUMMARY | 2025-10-31 18:55 | XMS_ITS | Encounter Summary ---
Author Organization [facility] Address [address] [place] [address] Care Team Providers Care Rn Birthing Name Role Phone Elsewhere, Pcp Primary Care Provider Unavailabl e Encounter Details DateTypeDepartmentCare Team (Latest Contact Info)Uqftkxtvgyd85/08/2025linical Communication Pedro Fatima [facility] in [place], [place] [address] [place] [address] Jessica oRusseau M.B.B.S. [address] [place] [address] Social History Tobacco UseTypesPacks/DayYears UsedDateSmoking Tobacco: NeverSmokeless [...] before you got the money to buymore.Patient dsrozbkv31/25/2025Within the past 12 months, the food you bought just didn't last and you didn't have money to get more.Patient zdxjzrug64/25/2025PRAPARE - TransportationAnswerDate RecordedIn the past 12 months, has lack of transportation kept you from medical appointments or from getting medications?No08/13/2025In the past 12 months, has lack of transportation kept you from meetings, work, or from getting things needed for daily living?No08/13/2025HC UtilitiesAnswerDate RecordedIn the past 12 months has the [employer], gas, oil, or water [employer] threatened to shut off services in your home?Patient gaqoftry79/25/2025Postpartum DepressionAnswerDate RecordedPHQ- 9 Total Score (max 27)12007/08/2025Housing StabilityAnswerDate RecordedWhat is your living situation today?I have a steady place to live08/13/2025Education AnswerDate RecordedWhat is the highest level of school you have completed or the highest degree you have received?Some college, no gviheb5204/24/2019 CommentsNoSex and Gender InformationValueDate RecordedSex Assigned at Eqaqmb7912/26/2018 8:37 PM CSTLegal GwmEpoqad66/02/2017 2:43 PM CSTGender Identity Sfbqmr9812/26/2018 8:37 PM CSTSexual OrientationChoose not to abncfqqg72/17/2021 3:46 PM CDTdocumented as of this encounter Plan of Treatment DateTypeDepartmentCare Team (Latest Contact Info)Ewexsewxlpd42/29/2025 9:00 AM CSTOffice Visit Department of Obstetrics and Gynecology in [place], [place] [address] [place] [phone] Alice Linares M.D. [address] [place] [phone] 12/04/2025 1:30 PM CSTClinical Communication Virtual Review in [place], [place] 200 [place] [address] 12/07/2025 8:10 AM CSTLab Department of Laboratory Medicine and Pathology, [facility] in [place], [place] [address] [place] [phone] Jessica Rousseau M.B.B.S. [address] [place] [phone] 12/07/2025 9:15 AM CSTAppointment Outpatient Procedure Center in [place], [place] [address] [place] [phone] Jessica Rousseau M.B.B.S. [address] [place] [phone] 12/07/2025 11:00 AM CSTDiagnostic Division of Pulmonary Medicine in [place], [place] [address] [place] [phone] Jessica Rousseau M.B.B.S. [address] [place] [phone] 12/07/2025 1:00 PM CSTOffice Visit [facility] in [place], [place] [address] [place] [phone] Jessica Rousseau M.B.B.S. [address] [place] [phone] 12/07/2025 1:30 PM CSTNurse Only Pedro [facility] in [place], [place] [address] [place] [address] Jessica Rousseau M.B.B.S. [address] [place] [phone] 12/07/2025 2:00 PM CSTOffice Visit Pedro [facility] in [place], [place] [address] [place] [phone] Jessica Rousseau M.B.B.S. [address] [place] [phone] 12/07/2025 3:00 PM CSTOffice Visit Department of Palliative Care in [place], [place] [address] [place] [phone] Martine Pardo B.M.B.S., B.M., B.Ch. [address] [place] [phone] documented as of this encounter Visit Diagnoses Not on filedocumented in this encounter Additional Health Concerns InfectionOnset DateLast IndicatedResolved TimeProtective Fpfoxgwjulw54/14/2023 03/02/2023ssessmentNoted TimePHQ-9 Depression Total Score: 12007/08/2025 9:42 AM CDTdocumented as of this encounter Care Teams Team MemberRelationshipSpecialtyStart DateEnd Date Elsewhere, Pcp PCP - GeneralInternal Ntxexoks38/5/25documented as of this encounter
--- OUTSIDE RECORDS SUMMARY | 2025-10-31 18:56 | XMS_ITS | Encounter Summary ---
Author Organization [facility] Address [address] [place] [address] Care Team Providers Care Progressive Care Unit Registered Nurse Name Role Phone Elsewhere, Pcp Primary Care Provider Unavailabl e Reason for Visit * ReasonOnset FndrMwppwtagPssxsoytbfpux57/12/2025 Encounter Details DateTypeDepartmentCare Team (Latest Contact Info)Ietoxzrjqdm55/12/2025linical Communication [facility] in [place], [place] [address] [place] [address] Transplant, Coordinator, R.N. Communication Social History Tobacco UseTypesPacks/DayYears UsedDateSmoking Tobacco: NeverSmokeless [...] before you got the money to buymore.Patient mzdsfvis62/25/2025Within the past 12 months, the food you bought just didn't last and you didn't have money to get more.Patient healvcul08/25/2025PRAPARE - TransportationAnswerDate RecordedIn the past 12 months, has lack of transportation kept you from medical appointments or from getting medications?No08/13/2025In the past 12 months, has lack of transportation kept you from meetings, work, or from getting things needed for daily living?No08/13/2025HC UtilitiesAnswerDate RecordedIn the past 12 months has the [employer], gas, oil, or water [employer] threatened to shut off services in your home?Patient upecsqhv28/25/2025Postpartum DepressionAnswerDate RecordedPHQ- 9 Total Score (max 27)12007/08/2025Housing StabilityAnswerDate RecordedWhat is your living situation today?I have a steady place to live08/13/2025Education AnswerDate RecordedWhat is the highest level of school you have completed or the highest degree you have received?Some college, no txknzk3604/24/2019 CommentsNoSex and Gender InformationValueDate RecordedSex Assigned at Dgpcxj7612/26/2018 8:37 PM CSTLegal IceKlzchs64/02/2017 2:43 PM CSTGender PkorvnfdXjwjwa20/07/2019 8:37 PM CSTSexual OrientationChoose not to disclose 04/04/2021 3:46 PM CDTdocumented as of this encounter Miscellaneous Notes * Telephone Encounter - Kayleen Rivas R.N. - 09/30/2025 4:37 PM CST SUBJECTIVE CHIEF COMPLAINT / REASON FOR CALL Symptoms ASSESSMENT Started getting sick on Sunday. Taking compazine and zofran on a schedule. Abdominal pain 4-5/10. 7loose stools in the last 24 hours. Denies fevers. Urgent care recommended hydration and rest and drinking electrolytes. Diagnoses with gastroenteritis by urgent care. PLAN Patient is wondering if there are any other nausea meds she can try. Disposition/Recommendation: self-care follow urgent care recommendations appropriate at this time, patient encouraged to call back with questions. Information/Education: patient/caller able to teach back. Caller agreeable to plan of care: yes. The following references were used: nursing clinical judgement. O PRODUCTION ENGINEER documented in this encounter Plan of Treatment DateTypeDepartmentCare Team (Latest Contact Info)Cqbufkcgxck74/29/2025 9:00 AM CSTOffice Visit Department of Obstetrics and Gynecology in [address] [phone] Alice Linares M.D. [address] [place] [phone] 12/04/2025 1:30 PM CSTClinical Communication Virtual Review in [address] [phone] 12/07/2025 8:10 AM CSTLab Department of Laboratory Medicine and Pathology, [facility], in [address] [address] Jessica Rousseau M.B.B.S. [address] [place] [phone] 12/07/2025 9:15 AM CSTAppointment Outpatient Procedure Center in [address] [phone] Jessica Rousseau M.B.B.S. [address] [place] [phone] 12/07/2025 11:00 AM CSTDiagnostic Division of Pulmonary Medicine in [place], [place] [address] [place] [address] Jessica Rousseau M.B.B.S. [address] [place] [phone] 12/07/2025 1:00 PM CSTOffice Visit [facility] in [place], [place] [address] [place] [address] Jessica Rousseau M.B.B.S. [address] [place] [phone] 12/07/2025 1:30 PM CSTNurse Only [facility] Transplantation and Clinical Regeneration in [place], [place] [address] [place] [address] Jessica Rousseau M.B.B.S. [address] [place] [phone] 12/07/2025 2:00 PM CSTOffice Visit [facility] Transplantation and Clinical Regeneration in [place], [place] [address] [place] [address] Jessica Rousseau M.B.B.S. [address] [place] [phone] 12/07/2025 3:00 PM CSTOffice Visit Department of Palliative Care in [place], [place] [address] [place] [phone] Martine Pardo B.M.B.S., B.M., B.Ch. [address] [place] [phone] documented as of this encounter Visit Diagnoses Not on filedocumented in this encounter Additional Health Concerns InfectionOnset DateLast IndicatedResolved TimeProtective Cmvlitnnsba49/14/2023 03/02/2023ssessmentNoted TimePHQ-9 Depression Total Score: 9:42 AM CDTdocumented as of this encounter Care Teams Team MemberRelationshipSpecialtyStart DateEnd Date Elsewhere, Pcp PCP - GeneralInternal Lzslftmg98/5/25documented as of this encounter
--- OUTSIDE RECORDS SUMMARY | 2025-10-31 18:56 | XMS_ITS | Encounter Summary ---
Author Organization [facility] Address [address] [place] [address] Care Team Providers Care Cuff Setter Lockstitch Name Role Phone Elsewhere, Pcp Primary Care Provider Unavailabl e Reason for Visit * ReasonOnset DateCommentsLab Lflxwmbivi42/12/20293111/30/24 Encounter Details DateTypeDepartmentCare Team (Latest Contact Info)Asiybjpglcr03/12/2025linical Communication Pedro sanchez [facility] for Transplantation and Clinical Regeneration in [place], [place] [address] [place] [address] Arely Taylor R.N. [address] [place] [address] Lab Monitoring (09/30/25) Social History Tobacco UseTypesPacks/DayYears UsedDateSmoking Tobacco: NeverSmokeless [...] before you got the money to buymore.Patient lxfpmeko84/25/2025Within the past 12 months, the food you bought just didn't last and you didn't have money to get more.Patient ndabknou32/25/2025PRAPARE - TransportationAnswerDate RecordedIn the past 12 months, has lack of transportation kept you from medical appointments or from getting medications?No08/13/2025In the past 12 months, has lack of transportation kept you from meetings, work, or from getting things needed for daily living?No08/13/2025HC UtilitiesAnswerDate RecordedIn the past 12 months has the electric, gas, oil, or water company threatened to shut off services in your home?Patient gghyviqs25/25/2025Postpartum DepressionAnswerDate RecordedPHQ- 9 Total Score (max 27)12007/08/2025Housing StabilityAnswerDate RecordedWhat is your living situation today?I have a steady place to live08/13/2025Education AnswerDate RecordedWhat is the highest level of school you have completed or the highest degree you have received?Some college, no ncrwwg6404/24/2019 CommentsNoSex and Gender InformationValueDate RecordedSex Assigned at Ggmoeq5112/26/2018 8:37 PM CSTLegal KarIfkupg63/02/2017 2:43 PM CSTGender Identity Mkrhil7912/26/2018 8:37 PM CSTSexual OrientationChoose not to dnpnxamy24/17/2021 3:46 PM CDTdocumented as of this encounter Miscellaneous Notes * Telephone Encounter - Arely Taylor R.N. - 09/30/2025 2:41 PM BAG WASHER Current Immunosuppression: None GVHD: no ACUTE GVHD (CIBMTR CRITERIA) Current Severity 08/12/2025 Skin Stage Stage 0 (No GVHD rash) [...] : Prednisone 40 mg PO daily initiated 07/02/2025-discontinued on 08/03/2025 Response to tt : Complete response Misc: 09/30--Patient was just in urgent care and diagnosed with Gastroenteritis. FYI from visit on 08/13/25-- # Disposition - Follow-up labs in 2 weeks, if normalization of white cell count can space them out to her return visit in November 2025 when she will have annual testing along with a bone marrow biopsy. BMT Allogenic transplant date: 12/10/2024 (Day 294) Lab frequency: Unsure--wait for direction from ANUPAM Next BMT visit: 12/07/2024 Outside labs from 09/30/25 are located in the Labs section of [facility] (Chapter 11). Labs pending: None Resulted Labs: Recent Labs 09/30/25 0849 08/18/25 1235 08/13/25 1021 08/05/25 1342 HGB 12.5 11.7 L 11.5 L 12.4 PLT 239 230 193 207 HCT 38.5 36.0 35.1 L 37.5 WBC 3.8 3.5 L 2.4 L 4.2 NEUTROPHILS 2.41 2.3 1.50 L 3.02 EOSINOPHILS 0.18 0.2 5.0 0.08 0.06 MONOCYTES 0.21 L -- 0.23 L 0.25 L Recent Labs 09/30/25 0849 08/13/25 1021 08/05/25 1342 07/29/25 0947 07/16/25 0755 07/06/25 0547 07/05/25 0052 CREATININE 0.63 0.87 0.89 0.82 < > 0.77 0.80 GLUCOSE CANCELED 146 H 174 H 159 H 76 < > 143 H 126 NA 139 141 139 140 < > 140 139 KPLASMA 4.3 -- -- -- -- -- -- KSERUM -- 4.3 3.9 4.3 < > 4.1 4.2 MG 1.9 2.1 2.2 2.2 < > 2.1 -- BICARB 21 L -- -- -- -- 24 24 BUN 6 8 11 11 < > 14 10 < > = values in this interval not displayed. Recent Labs 09/30/25 0849 08/18/25 1235 08/13/25 1021 08/05/25 1342 07/16/25 0755 07/06/25 0547 07/02/25 2139 ALKPHOS 86 -- 97 93 < > 102 98 AST 31 -- 46 H 22 < > 14 25 ALT 40 -- 58 H 36 < > 20 40 BILITOT 0.4 -- 0.2 0.3 < > <0.2 <0.2 LABPHOS -- -- -- -- -- 4.4 -- ALBUMIN 4.3 -- 4.1 4.5 < > 3.8 4.3 GGT -- -- -- -- -- -- 41 H TSH -- 0.78 -- -- -- -- -- < > = values in this interval not displayed. Immunosuppressant(s): No results for input(s): TACROLIMUS, CYCLOSPORINE, SIROLIMUS in the last 2190 hours. Serologies: Recent Labs 08/13/25 1021 07/22/25 0846 07/16/25 0756 CMVQUANT Undetected Undetected Undetected Recent Labs 08/05/25 1342 07/29/25 0947 07/22/25 0846 EBVDNADETQUP Undetected Undetected Undetected Please respond to P RST TXP BMT TEAM 2 RN if any follow up is needed. Thanks! WASHER documented in this encounter Plan of Treatment DateTypeDepartmentCare Team (Latest Contact Info)Rvgaxyvlmhs49/29/2025 9:00 AM CSTOffice Visit Department of Obstetrics and Gynecology in [place], [place] [address] [place] [address] Alice Linares M.D. [address] [place] [phone] 12/04/2025 1:30 PM CSTClinical Communication Virtual Review in [place], [place] [address] [place] [address] 12/07/2025 8:10 AM CSTLab Department of Laboratory Medicine and Pathology, [facility] in [place], [place] [address] [place] [phone] Jessica Rousseau M.B.B.S. [address] [place] [phone] 12/07/2025 9:15 AM CSTAppointment Outpatient Procedure Center in [place], [place] [address] [place] [phone] Jessica Rousseau M.B.B.S. [address] [place] [phone] 12/07/2025 11:00 AM CSTDiagnostic Division of Pulmonary Medicine in [place], [place] [address] [place] [phone] Jessica Rousseau M.B.B.S. [address] [place] [phone] 12/07/2025 1:00 PM CSTOffice Visit Pedro sanchez [facility] for Transplantation and Clinical Regeneration in [place], [place] [address] [place] [phone] Jessica Rousseau M.B.B.S. [address] [place] [phone] 12/07/2025 1:30 PM CSTNurse Only [facility] for [facility] and Clinical Regeneration in [place], [place] [address] [place] [phone] Jessica Rousseau M.B.B.S. [address] [place] [phone] 12/07/2025 2:00 PM CSTOffice Visit Pedro sanchez [facility] for Transplantation and Clinical Regeneration in [place], [place] [address] [place] [phone] Jessica Rousseau M.B.B.S. [address] [place] [phone] 12/07/2025 3:00 PM CSTOffice Visit Department of Palliative Care in [place], [place] [address] [place] [phone] Martine Pardo B.M.BKatalinaS., B.M., B.Ch. [address] [place] [phone] documented as of this encounter Visit Diagnoses Not on filedocumented in this encounter Additional Health Concerns InfectionOnset DateLast IndicatedResolved TimeProtective Gudywthjvqj38/14/2023 03/02/2023ssessmentNoted TimePHQ-9 Depression Total Score: 12007/08/2025 9:42 AM CDTdocumented as of this encounter Care Teams Team MemberRelationshipSpecialtyStart DateEnd Date Elsewhere, Pcp PCP - GeneralInternal Xsiftsoe89/5/25documented as of this encounter
--- OUTSIDE RECORDS SUMMARY | 2025-10-31 18:56 | XMS_ITS | Encounter Summary ---
Author Organization [facility] Address [address] [place] [address] Care Team Providers Care Malted Milk Mixer Name Role Phone Elsewhere, Pcp Primary Care Provider Unavailabl e Reason for Referral * SpecialtyDiagnoses / ProceduresReferred By ContactReferred To Contact Diagnoses Transplant Bone Marrow Allogeneic (HCC) [facility] [address] [place] [address] Phone: tel: [facility] Referral IDStatusReasonStart DateExpiration DateVisits RequestedVisits Authorized CIAN APPRENTICE DISPENSING Encounter Details DateTypeDepartmentCare Team (Latest Contact Info)Ywnhyseeerm61/08/2025Orders Only [facility], [facility], Ninth Floor [address] [place] [address] Aida Lara R.N. Transplant Bone Marrow Allogeneic (HCC) (Primary Dx) Social History Tobacco UseTypesPacks/DayYears UsedDateSmoking [...] you didn't have money to get more.Patient eplsarri80/25/2025PRAPARE - TransportationAnswerDate RecordedIn the past 12 months, has lack of transportation kept you from medical appointments or from getting medications?No08/13/2025In the past 12 months, has lack of transportation kept you from meetings, work, or from getting things needed for daily living?No08/13/2025HC UtilitiesAnswerDate RecordedIn the past 12 months has the [employer] [place] [employer], oil, or water [employer] threatened to shut off services in your home?Patient zjepgbtz71/25/2025Postpartum DepressionAnswerDate RecordedPHQ- 9 Total Score (max 27)12007/08/2025Housing StabilityAnswerDate RecordedWhat is your living situation today?I have a steady place to live08/13/2025Education AnswerDate RecordedWhat is the highest level of school you have completed or the highest degree you have received?Some college, no stluqq6304/24/2019 CommentsNoSex and Gender InformationValueDate RecordedSex Assigned at Pzewji9912/26/2018 8:37 PM CSTLegal NcyYlsvig21/02/2017 2:43 PM CSTGender Identity Dfnmqj1912/26/2018 8:37 PM CSTSexual OrientationChoose not to tofdvtsl54/17/2021 3:46 PM CDTdocumented as of this encounter Plan of Treatment DateTypeDepartmentCare Team (Latest Contact Info)Sngoxzpwdhb20/29/2025 9:00 AM CSTOffice Visit Department of Obstetrics and Gynecology in [place], [place] [address] [place] [phone] Alice Linares M.D. [address] [place] [phone] 12/04/2025 1:30 PM CSTClinical Communication Virtual Review in [place], [place] 200 [place] [address] 12/07/2025 8:10 AM CSTLab Department of Laboratory Medicine and Pathology, [facility] in [place], [place] [address] [place] [phone] Jessica Rousseau M.B.B.S. [address] [place] [phone] 12/07/2025 9:15 AM CSTAppointment Outpatient Procedure Center in [address] [phone] Jessica Rousseau M.B.B.S. [address] [place] [phone] 12/07/2025 11:00 AM CSTDiagnostic Division of Pulmonary Medicine in [address] [phone] Jessica Rousseau M.B.B.S. [address] [place] [phone] 12/07/2025 1:00 PM CSTOffice Visit [facility] Transplantation and Clinical Regeneration in [place], [place] [address] [place] [address] Jessica Rousseau M.B.B.S. [address] [place] [phone] 12/07/2025 1:30 PM CSTNurse Only [facility] Transplantation and Clinical Regeneration in [place], [place] [address] [place] [phone] Jessica Rousseau M.B.B.S. [address] [place] [phone] 12/07/2025 2:00 PM CSTOffice Visit [facility] Transplantation and Clinical Regeneration in [place], [place] [address] [place] [phone] Jessica Rousseau M.B.B.S. [address] [place] [phone] 12/07/2025 3:00 PM CSTOffice Visit Department of Palliative Care in [place], [place] [address] [place] [phone] Martine Pardo B.MKatalinaB.S., B.M., B.Ch. [address] [place] [phone] NameTypePriorityAssociated DiagnosesOrder ScheduleHydration Infusion Therapy; Outpatient ReferralRoutine Transplant Bone Marrow Allogeneic (HCC) Expected: 10/26/2025, Expires: 01/24/2027documented as of this encounter Visit Diagnoses Diagnosis Transplant Bone Marrow Allogeneic (HCC)- Primary documented in this encounter Additional Health Concerns InfectionOnset DateLast IndicatedResolved TimeProtective Htjbddyjhih02/14/2023 03/02/2023ssessmentNoted TimePHQ-9 Depression Total Score: 9:42 AM CDTdocumented as of this encounter Care Teams Team MemberRelationshipSpecialtyStart DateEnd Date Elsewhere, Pcp PCP - GeneralInternal Rspbabkq60/5/25documented as of this encounter
--- OUTSIDE RECORDS SUMMARY | 2025-10-31 18:56 | XMS_ITS | Encounter Summary ---
Author Organization [facility] Address [address] [place] [address] Care Team Providers Care Condenser Tester Name Role Phone Renzo Andres M.D. Primary Care Provider [phone] Encounter Details DateTypeDepartmentCare Team (Latest Contact Info)Mpowwuchthu58/12/2025Orders Only [facility], [facility], Ninth Floor [address] [place] [address] Analia Carter, ACETYLENE BURNER, C.N.P. [address] [place] [address] Social History Tobacco UseTypesPacks/DayYears UsedDateSmoking Tobacco: NeverSmokeless [...] before you got the money to buymore.Patient moqtytxt96/25/2025Within the past 12 months, the food you bought just didn't last and you didn't have money to get more.Patient yagtklan48/25/2025PRAPARE - TransportationAnswerDate RecordedIn the past 12 months, has lack of transportation kept you from medical appointments or from getting medications?No08/13/2025In the past 12 months, has lack of transportation kept you from meetings, work, or from getting things needed for daily living?No08/13/2025HC UtilitiesAnswerDate RecordedIn the past 12 months has the electric, gas, oil, or water company threatened to shut off services in your home?Patient diibecof57/25/2025Postpartum DepressionAnswerDate RecordedPHQ- 9 Total Score (max 27)12007/08/2025Housing StabilityAnswerDate RecordedWhat is your living situation today?I have a steady place to live08/13/2025Education AnswerDate RecordedWhat is the highest level of school you have completed or the highest degree you have received?Some college, no nenbrr5604/24/2019 CommentsNoSex and Gender InformationValueDate RecordedSex Assigned at Dshhpa3912/26/2018 8:37 PM CSTLegal LdnUpjqzl26/02/2017 2:43 PM CSTGender Identity Pnpodr6112/26/2018 8:37 PM CSTSexual OrientationChoose not to tmnvhjve88/17/2021 3:46 PM CDTdocumented as of this encounter Plan of Treatment DateTypeDepartmentCare Team (Latest Contact Info)Tixjawjgrsg88/29/2025 9:00 AM CSTOffice Visit Department of Obstetrics and Gynecology in [place], [place] [address] [place] [phone] Alice Linares M.D. [address] [place] [phone] 12/04/2025 1:30 PM CSTClinical Communication Virtual Review in [place], [place] 200 [place] [address] 12/07/2025 8:10 AM CSTLab Department of Laboratory Medicine and Pathology, [facility] in [place], [place] [address] [place] [phone] Jessica Rousseau M.B.B.S. [address] [place] [phone] 12/07/2025 9:15 AM CSTAppointment Outpatient Procedure Center in [place], [place] [address] [place] [phone] Jessica Rousseau M.B.B.S. [address] [place] [phone] 12/07/2025 11:00 AM CSTDiagnostic Division of Pulmonary Medicine in [place], [place] [address] [place] [phone] Jessica Rousseau M.B.B.S. [address] [place] [phone] 12/07/2025 1:00 PM CSTOffice Visit [facility] in [place], [place] [address] [place] [phone] Jessica Rousseau M.B.B.S. [address] [place] [phone] 12/07/2025 1:30 PM CSTNurse Only [facility] Transplantation and Clinical Regeneration in [place], [place] [address] [place] [address] Jessica Rousseau M.B.B.S. [address] [place] [phone] 12/07/2025 2:00 PM CSTOffice Visit [facility] Transplantation and Clinical Regeneration in [place], [place] [address] [place] [address] Jessica Rousseau M.B.B.S. [address] [place] [phone] 12/07/2025 3:00 PM CSTOffice Visit Department of Palliative Care in [place], [place] [address] [place] [phone] Martine Pardo B.M.B.S., B.M., B.Ch. [address] [place] [phone] documented as of this encounter Visit Diagnoses Not on filedocumented in this encounter Additional Health Concerns InfectionOnset DateLast IndicatedResolved TimeProtective Cniwwxoitfz45/14/2023 03/02/2023ssessmentNoted TimePHQ-9 Depression Total Score: 9:42 AM CDTdocumented as of this encounter Care Teams Team MemberRelationshipSpecialtyStart DateEnd Date Renzo Andres M.D. [address] [place] [address] [place] [phone] PCP - GeneralFamily Medicine04/25/2312documented as of this encounter
--- OUTSIDE RECORDS SUMMARY | 2025-10-31 18:56 | XMS_ITS | Encounter Summary ---
Author Organization [facility] Address [address] [place] [address] Care Team Providers Care English Adjunct Faculty Name Role Phone Elsewhere, Pcp Primary Care Provider Unavailabl e Reason for Visit * ReasonOnset DateCommentsSymptom Ukknzgrbse73/12/2025 Encounter Details DateTypeDepartmentCare Team (Latest Contact Info)Ouowptqxdlj93/12/2025linical Communication Pedro sanchez [facility] for Transplantation and Clinical Regeneration in [place], [place] [address] [place] [address] Jessica Rousseau M.B.B.S. [address] [place] [address] Symptom Assessment Social History Tobacco UseTypesPacks/DayYears UsedDateSmoking Tobacco: [...] before you got the money to buymore.Patient vtxeftrl61/25/2025Within the past 12 months, the food you bought just didn't last and you didn't have money to get more.Patient fxbidcrq11/25/2025PRAPARE - TransportationAnswerDate RecordedIn the past 12 months, has lack of transportation kept you from medical appointments or from getting medications?No08/13/2025In the past 12 months, has lack of transportation kept you from meetings, work, or from getting things needed for daily living?No08/13/2025HC UtilitiesAnswerDate RecordedIn the past 12 months has the [facility], gas, oil, or water [employer] threatened to shut off services in your home?Patient jserfanc10/25/2025Postpartum DepressionAnswerDate RecordedPHQ- 9 Total Score (max 27)12007/08/2025Housing StabilityAnswerDate RecordedWhat is your living situation today?I have a steady place to live08/13/2025Education AnswerDate RecordedWhat is the highest level of school you have completed or the highest degree you have received?Some college, no gvqvxz7304/24/2019 CommentsNoSex and Gender InformationValueDate RecordedSex Assigned at Rckaho6512/26/2018 8:37 PM CSTLegal XpnWjqxtq92/02/2017 2:43 PM CSTGender Identity Ivwdvw0512/26/2018 8:37 PM CSTSexual OrientationChoose not to vkgkixlt83/17/2021 3:46 PM CDTdocumented as of this encounter Plan of Treatment DateTypeDepartmentCare Team (Latest Contact Info)Mxoffnriygx34/29/2025 9:00 AM CSTOffice Visit Department of Obstetrics and Gynecology in [place], [place] [address] [place] [phone] Alice Linares M.D. [address] [place] [phone] 12/04/2025 1:30 PM CSTClinical Communication Virtual Review in [place], [place] 200 [place] [address] 12/07/2025 8:10 AM CSTLab Department of Laboratory Medicine and Pathology, [facility] in [place], [place] [address] [place] [phone] Jessica Rousseau M.B.B.S. [address] [place] [phone] 12/07/2025 9:15 AM CSTAppointment Outpatient Procedure Center in [place], [place] [address] [place] [phone] Jessica Rousseau M.B.B.S. [address] [place] [phone] 12/07/2025 11:00 AM CSTDiagnostic Division of Pulmonary Medicine in [place], [place] [address] [place] [phone] Jessica Rousseau M.B.B.S. [address] [place] [phone] 12/07/2025 1:00 PM CSTOffice Visit [facility] in [place], [place] [address] [place] [phone] Jessica Rousseau M.B.B.S. [address] [place] [phone] 12/07/2025 1:30 PM CSTNurse Only [facility] Transplantation and Clinical Regeneration in [place], [place] [address] [place] [phone] Jessica Rousseau M.B.B.S. [address] [place] [phone] 12/07/2025 2:00 PM CSTOffice Visit [facility] Transplantation and Clinical Regeneration in [place], [place] [address] [place] [phone] Jessica Rousseau M.B.B.S. [address] [place] [phone] 12/07/2025 3:00 PM CSTOffice Visit Department of Palliative Care in [place], [place] [address] [place] [phone] Martine Pardo B.M.B.S., B.M., B.Ch. [address] [place] [phone] documented as of this encounter Visit Diagnoses Not on filedocumented in this encounter Additional Health Concerns InfectionOnset DateLast IndicatedResolved TimeProtective Jjimjfkhdoh51/14/2023 03/02/2023ssessmentNoted TimePHQ-9 Depression Total Score: 12007/08/2025 9:42 AM CDTdocumented as of this encounter Care Teams Team MemberRelationshipSpecialtyStart DateEnd Date Elsewhere, Pcp PCP - GeneralInternal Xppqdhzr31/5/25documented as of this encounter
--- OUTSIDE RECORDS SUMMARY | 2025-10-31 18:56 | XMS_ITS | Encounter Summary ---
Author Organization [facility] Address [address] [place] [address] Care Team Providers Care Chief Payroll Clerk Name Role Phone Elsewhere, Pcp Primary Care Provider Unavailabl e Encounter Details DateTypeDepartmentCare Team (Latest Contact Info)Ibyljodkrnj30/09/2025Orders Only Pedro [facility] in [place], [place] [address] [place] [address] Devi Roper, MARINA PORTER, C.N.P., D.N.P. [address] [place] [address] Social History Tobacco UseTypesPacks/DayYears UsedDateSmoking Tobacco: NeverSmokeless [...] before you got the money to buymore.Patient cbnniucp19/25/2025Within the past 12 months, the food you bought just didn't last and you didn't have money to get more.Patient hesmiwod44/25/2025PRAPARE - TransportationAnswerDate RecordedIn the past 12 months, has lack of transportation kept you from medical appointments or from getting medications?No08/13/2025In the past 12 months, has lack of transportation kept you from meetings, work, or from getting things needed for daily living?No08/13/2025HC UtilitiesAnswerDate RecordedIn the past 12 months has the [employer], gas, oil, or water [employer] threatened to shut off services in your home?Patient txygqaey98/25/2025Postpartum DepressionAnswerDate RecordedPHQ- 9 Total Score (max 27)12007/08/2025Housing StabilityAnswerDate RecordedWhat is your living situation today?I have a steady place to live08/13/2025Education AnswerDate RecordedWhat is the highest level of school you have completed or the highest degree you have received?Some college, no nmmnkm3004/24/2019 CommentsNoSex and Gender InformationValueDate RecordedSex Assigned at Kisrsb5712/26/2018 8:37 PM CSTLegal KdjEdwetg99/02/2017 2:43 PM CSTGender Identity Xsyqli1912/26/2018 8:37 PM CSTSexual OrientationChoose not to qtdsgdyj85/17/2021 3:46 PM CDTdocumented as of this encounter Plan of Treatment DateTypeDepartmentCare Team (Latest Contact Info)Vqkjkxmvwit07/29/2025 9:00 AM CSTOffice Visit Department of Obstetrics and Gynecology in [place], [place] [address] [place] [phone] Alice Linares M.D. [address] [place] [phone] 12/04/2025 1:30 PM CSTClinical Communication Virtual Review in [place], [place] 200 [place] [address] 12/07/2025 8:10 AM CSTLab Department of Laboratory Medicine and Pathology, [facility] in [place], [place] [address] [place] [phone] Jessica Rousseau M.B.B.S. [address] [place] [phone] 12/07/2025 9:15 AM CSTAppointment Outpatient Procedure Center in [place], [place] [address] [place] [phone] Jessica Rousseau M.B.B.S. [address] [place] [phone] 12/07/2025 11:00 AM CSTDiagnostic Division of Pulmonary Medicine in [address] [phone] Jessica Rousseau M.B.B.S. [address] [place] [phone] 12/07/2025 1:00 PM CSTOffice Visit [facility] in [place], [place] [address] [place] [phone] Jessica Rousseau M.B.B.S. [address] [place] [phone] 12/07/2025 1:30 PM CSTNurse Only [facility] Transplantation and Clinical Regeneration in [place], [place] [address] [place] [address] Jessica Rousseau M.B.B.S. [address] [place] [phone] 12/07/2025 2:00 PM CSTOffice Visit [facility] Transplantation and Clinical Regeneration in [place], [place] [address] [place] [phone] Jessica Rousseau M.B.B.S. [address] [place] [phone] 12/07/2025 3:00 PM CSTOffice Visit Department of Palliative Care in [place], [place] [address] [place] [phone] Martine Pardo B.M.B.S., B.M., B.Ch. [address] [place] [phone] documented as of this encounter Visit Diagnoses Not on filedocumented in this encounter Additional Health Concerns InfectionOnset DateLast IndicatedResolved TimeProtective Uchxehcdrzk60/14/2023 03/02/2023ssessmentNoted TimePHQ-9 Depression Total Score: 9:42 AM CDTdocumented as of this encounter Care Teams Team MemberRelationshipSpecialtyStart DateEnd Date Elsewhere, Pcp PCP - GeneralInternal Folsjnnq02/5/25documented as of this encounter
--- OUTSIDE RECORDS SUMMARY | 2025-10-31 18:56 | XMS_ITS | Encounter Summary ---
Author Organization [facility] Address [address] [place] [address] Care Team Providers Care Cattle Farmer Name Role Phone Elsewhere, Pcp Primary Care Provider Unavailabl e Reason for Visit * ReasonOnset GqceFjqtdhstKzjlxuw89/05/2025[facility] Management Encounter Details DateTypeDepartmentCare Team (Latest Contact Info)Kcpmsdfpdum39/05/2025linical Communication Department of Family Medicine, [facility], in [place] [address] [place] [address] Gabby De Anda, RKatalinaN. Quality ([facility] Management/) Social History Tobacco UseTypesPacks/DayYears UsedDateSmoking Tobacco: NeverSmokeless [...] before you got the money to buymore.Patient htsuerot87/25/2025Within the past 12 months, the food you [...] RecordedIn the past 12 months has the [employer], gas, oil, or water [employer] threatened to shut off services in your home?Patient awgzrakb36/25/2025Postpartum DepressionAnswerDate RecordedPHQ- 9 Total Score (max 27)12007/08/2025Housing StabilityAnswerDate RecordedWhat is your living situation today?I have a steady place to live08/13/2025Education AnswerDate RecordedWhat is the highest level of school you have completed or the highest degree you have received?Some college, no wrrvng3604/24/2019 CommentsNoSex and Gender InformationValueDate RecordedSex Assigned at Wtckiu6812/26/2018 8:37 PM CSTLegal PpcYkefef64/02/2017 2:43 PM CSTGender Identity Ebhftl6812/26/2018 8:37 PM CSTSexual OrientationChoose not to wamwcaru86/17/2021 3:46 PM CDTdocumented as of this encounter Plan of Treatment DateTypeDepartmentCare Team (Latest Contact Info)Otfbjhhhbdi55/29/2025 9:00 AM CSTOffice Visit Department of Obstetrics and Gynecology in [place], [place] [address] [place] [phone] Alice Linares M.D. [address] [place] [phone] 12/04/2025 1:30 PM CSTClinical Communication Virtual Review in [place], [place] 200 [place] [address] 12/07/2025 8:10 AM CSTLab Department of Laboratory Medicine and Pathology, [facility] in [place], [place] [address] [place] [phone] Jessica Rousseau M.B.B.S. [address] [place] [phone] 12/07/2025 9:15 AM CSTAppointment Outpatient Procedure Center in [place], [place] [address] [place] [phone] Jessica Rousseau M.B.B.S. [address] [place] [phone] 12/07/2025 11:00 AM CSTDiagnostic Division of Pulmonary Medicine in [address] [phone] Jessica Rousseau M.B.B.S. [address] [place] [phone] 12/07/2025 1:00 PM CSTOffice Visit [facility] in [place], [place] [address] [place] [phone] Jessica Rousseau M.B.B.S. [address] [place] [phone] 12/07/2025 1:30 PM CSTNurse Only [facility] in [place], [place] [address] [place] [address] Jessica Rousseau M.B.B.S. [address] [place] [phone] 12/07/2025 2:00 PM CSTOffice Visit Pedro sanchez [facility] Transplantation and Clinical Regeneration in [place], [place] [address] [place] [phone] Jessica Rousseau M.B.B.S. [address] [place] [phone] 12/07/2025 3:00 PM CSTOffice Visit Department of Palliative Care in [place], [place] [address] [place] [phone] Martine Pardo B.MKatalinaB.S., B.M., B.Ch. [address] [place] [phone] documented as of this encounter Visit Diagnoses Not on filedocumented in this encounter Additional Health Concerns InfectionOnset DateLast IndicatedResolved TimeProtective Mjinuaesuzl75/14/2023 03/02/2023ssessmentNoted TimePHQ-9 Depression Total Score: 12007/08/2025 9:42 AM CDTdocumented as of this encounter Care Teams Team MemberRelationshipSpecialtyStart DateEnd Date Elsewhere, Pcp PCP - GeneralInternal Dhkvphhx02/5/25documented as of this encounter
--- OUTSIDE RECORDS SUMMARY | 2025-10-31 18:56 | XMS_ITS | Encounter Summary ---
Author Organization [facility] Address [address] [place] [address] Care Team Providers Care Early Childhood Teacher Assistant Name Role Phone Renzo Andres M.D. Primary Care Provider [phone] Reason for Visit * ReasonOnset DateCommentsMed Pnpmzk6008/31/2025 Encounter Details DateTypeDepartmentCare Team (Latest Contact Info)Pklineqihlo57/13/2025Refill Pedro Nazario [facility] and Clinical Regeneration in [place], [place] [address] [place] [address] Jessica Rousseau M.B.B.S. [address] [place] [address] Med Refill Social History Tobacco UseTypesPacks/DayYears UsedDateSmoking [...] before you got the money to buymore.Patient ozogpnox98/25/2025Within the past 12 months, the food you bought just didn't last and you didn't have money to get more.Patient trfawflz20/25/2025PRAPARE - TransportationAnswerDate RecordedIn the past 12 months, has lack of transportation kept you from medical appointments or from getting medications?No08/13/2025In the past 12 months, has lack of transportation kept you from meetings, work, or from getting things needed for daily living?No08/13/2025HC UtilitiesAnswerDate RecordedIn the past 12 months has the [employer], gas, oil, or water [employer] threatened to shut off services in your home?Patient nvvthfax57/25/2025Postpartum DepressionAnswerDate RecordedPHQ- 9 Total Score (max 27)12007/08/2025Housing StabilityAnswerDate RecordedWhat is your living situation today?I have a steady place to live08/13/2025Education AnswerDate RecordedWhat is the highest level of school you have completed or the highest degree you have received?Some college, no bcvcrn6704/24/2019 CommentsNoSex and Gender InformationValueDate RecordedSex Assigned at Yjljlq3412/26/2018 8:37 PM CSTLegal IslErsutg68/02/2017 2:43 PM CSTGender Identity Hdylpb5112/26/2018 8:37 PM CSTSexual OrientationChoose not to dawguliq87/17/2021 3:46 PM CDTdocumented as of this encounter Plan of Treatment DateTypeDepartmentCare Team (Latest Contact Info)Komjwbsnric18/29/2025 9:00 AM CSTOffice Visit Department of Obstetrics and Gynecology in [place], [place] [address] [place] [phone] Alice Linares M.D. [address] [place] [phone] 12/04/2025 1:30 PM CSTClinical Communication Virtual Review in [place], [place] 200 [place] [address] 12/07/2025 8:10 AM CSTLab Department of Laboratory Medicine and Pathology, [facility], in [place], [place] [address] [place] [phone] Jessica Rousseau M.B.B.S. [address] [place] [phone] 12/07/2025 9:15 AM CSTAppointment Outpatient Procedure Center in [place], [place] [address] [place] [phone] Jessica Rousseau M.B.B.S. [address] [place] [phone] 12/07/2025 11:00 AM CSTDiagnostic Division of Pulmonary Medicine in [place], [place] [address] [place] [phone] Jessica Rousseau M.B.B.S. [address] [place] [phone] 12/07/2025 1:00 PM CSTOffice Visit [facility] in [place], [place] [address] [place] [phone] Jessica Rousseau M.B.B.S. [address] [place] [phone] 12/07/2025 1:[address] [facility] Transplantation and Clinical Regeneration in [place], [place] [address] [place] [address] Jessica Rousseau M.B.B.S. [address] [place] [phone] 12/07/2025 2:[address] [facility] Transplantation and Clinical Regeneration in [place], [place] [address] [place] [address] Jessica Rousseau M.B.B.S. [address] [place] [phone] 12/07/2025 3:00 PM CSTOffice Visit Department of Palliative Care in [place], [place] [address] [place] [phone] Martine Pardo B.M.B.S., B.M., B.Ch. 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 [address] [place] [phone] PCP - GeneralFamily Medicine04/2505/2312documented as of this encounter
--- OUTSIDE RECORDS SUMMARY | 2025-10-31 18:56 | XMS_ITS | Encounter Summary ---
Author Organization [facility] Address [address] [place] [address] Care Team Providers Care Rubber And Pounder Name Role Phone Elsewhere, Pcp Primary Care Provider Unavailabl e Reason for Visit * ReasonOnset DateCommentsMed Kmcicx2109/24/2025 Encounter Details DateTypeDepartmentCare Team (Latest Contact Info)Oofrmgklfhg97/06/2025[facility]ill [facility] in [place], [place] [address] [place] [address] Jessica Rousseau M.B.B.S. [address] [place] [address] Med Refill Social History Tobacco UseTypesPacks/DayYears UsedDateSmoking [...] before you got the money to buymore.Patient vxbhfces60/25/2025Within the past 12 months, the food you bought just didn't last and you didn't have money to get more.Patient fclvtkom57/25/2025PRAPARE - TransportationAnswerDate RecordedIn the past 12 months, has lack of transportation kept you from medical appointments or from getting medications?No08/13/2025In the past 12 months, has lack of transportation kept you from meetings, work, or from getting things needed for daily living?No08/13/2025HC UtilitiesAnswerDate RecordedIn the past 12 months has the [employer], gas, oil, or water [employer] threatened to shut off services in your home?Patient ekomtqsm92/25/2025Postpartum DepressionAnswerDate RecordedPHQ- 9 Total Score (max 27)12007/08/2025Housing StabilityAnswerDate RecordedWhat is your living situation today?I have a steady place to live08/13/2025Education AnswerDate RecordedWhat is the highest level of school you have completed or the highest degree you have received?Some college, no nhaaux9504/24/2019 CommentsNoSex and Gender InformationValueDate RecordedSex Assigned at Dvxolz5612/26/2018 8:37 PM CSTLegal WznJwjunm89/02/2017 2:43 PM CSTGender Identity Ihcmye3212/26/2018 8:37 PM CSTSexual OrientationChoose not to emwewdig67/17/2021 3:46 PM CDTdocumented as of this encounter Miscellaneous Notes * Telephone Encounter - Millie Petersen R.N. - 09/24/2025 3:09 PM HOUSE MOVER HELPER Filled by another route E MOVER HELPER documented in this encounter Plan of Treatment DateTypeDepartmentCare Team (Latest Contact Info)Jiachgdouva72/29/2025 9:00 AM CSTOffice Visit Department of Obstetrics and Gynecology in [place], [place] [address] [place] [phone] Alice Linares M.D. [address] [place] [phone] 12/04/2025 1:30 PM CSTClinical Communication Virtual Review in [place], [place] 200 [place] [address] 12/07/2025 8:10 AM CSTLab Department of Laboratory Medicine and Pathology, [facility] in [place], [place] [address] [place] [phone] Jessica Rousseau M.B.B.S. [address] [place] [phone] 12/07/2025 9:15 AM CSTAppointment Outpatient Procedure Center in [place], [place] [address] [place] [phone] Jessica Rousseau M.B.B.S. [address] [place] [phone] 12/07/2025 11:00 AM CSTDiagnostic Division of Pulmonary Medicine in [place], [place] [address] [place] [phone] Jessica Rousseau M.B.B.S. [address] [place] [phone] 12/07/2025 1:00 PM CSTOffice Visit [facility] in [place], [place] [address] [place] [address] Jessica Rousseau M.B.B.S. [address] [place] [phone] 12/07/2025 1:30 PM CSTNurse Only [facility] in [place], [place] [address] [place] [phone] Jessica Rousseau M.B.B.S. [address] [place] [phone] 12/07/2025 2:00 PM CSTOffice Visit [facility] in [place], [place] [address] [place] [phone] Jessica Rousseau M.B.B.S. [address] [place] [phone] 12/07/2025 3:00 PM CSTOffice Visit Department of Palliative Care in [place], [place] [address] [place] [phone] Martine Pardo B.M.B.S., B.M., B.Ch. 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
--- OUTSIDE RECORDS SUMMARY | 2025-10-31 18:56 | XMS_ITS | Encounter Summary ---
Author Organization [facility] Address [address] [place] [address] Care Team Providers Care Nail Specialist Name Role Phone Renzo Andres M.D. Primary Care Provider [phone] Reason for Visit * ReasonOnset DateCommentsMed Gmybmf1910/12/2025 Encounter Details DateTypeDepartmentCare Team (Latest Contact Info)Dimmoesoqjv00/23/2025Refill Department of Palliative Care in [place], [place] [address] [place] [address] Felicia Watt, KARON, C.N.P., M.S.N. [address] [place] [address] Med Refill Social History Tobacco UseTypesPacks/DayYears UsedDateSmoking [...] before you got the money to buymore.Patient ewfkmdlb09/25/2025Within the past 12 months, the food you bought just didn't last and you didn't have money to get more.Patient kctlktvy04/25/2025PRAPARE - TransportationAnswerDate RecordedIn the past 12 months, has lack of transportation kept you from medical appointments or from getting medications?No08/13/2025In the past 12 months, has lack of transportation kept you from meetings, work, or from getting things needed for daily living?No08/13/2025HC UtilitiesAnswerDate RecordedIn the past 12 months has the [employer], gas, oil, or water [employer] threatened to shut off services in your home?Patient uqktqwse50/25/2025Postpartum DepressionAnswerDate RecordedPHQ- 9 Total Score (max 27)12007/08/2025Housing StabilityAnswerDate RecordedWhat is your living situation today?I have a steady place to live08/13/2025Education AnswerDate RecordedWhat is the highest level of school you have completed or the highest degree you have received?Some college, no nirsxz4904/24/2019 CommentsNoSex and Gender InformationValueDate RecordedSex Assigned at Gsjtjt8612/26/2018 8:37 PM CSTLegal GsuGrtkrj90/02/2017 2:43 PM CSTGender Identity Vkibgi3612/26/2018 8:37 PM CSTSexual OrientationChoose not to vfzlmrga78/17/2021 3:46 PM CDTdocumented as of this encounter Miscellaneous Notes * Telephone Encounter - Yuni Stockmo, Mallory E, R.N., [facility]PN - 10/12/2025 11:46 AM CST Prescription Refill Request Current Prescription Regimen: Buprenorphine 5 mcg/hr patch one patch per week. Last strength/amount/date filled: Buprenorphine 5 mcg/hr, #4 filled 09/05/25 [place] BOTTLER HELPER reviewed Prescription/amount provided today: Buprenorphine 5 mcg/hr, #4 Prescription will be e-Prescribed to the following pharmacy: Stephanie Patelfield PA Last appointment was in person office visit on 08/11/25 Last in-office visit if different than above: n/a Next palliative appointment is in person office visit on october Prescription was authorized by Dr. Adore Calero M SHOVEL ENGINEER M SHOVEL ENGINEER documented in this encounter Plan of Treatment DateTypeDepartmentCare Team (Latest Contact Info)Eqzjymqvptr84/29/2025 9:00 AM CSTOffice Visit Department of Obstetrics and Gynecology in [address] [phone] Alice Linares M.D. [address] [place] [phone] 12/04/2025 1:30 PM CSTClinical Communication Virtual Review in [place], [place] 200 [place] [address] 12/07/2025 8:10 AM CSTLab Department of Laboratory Medicine and Pathology, [facility], in [address] [phone] Jessica Rousseau M.B.B.S. [address] [place] [phone] 12/07/2025 9:15 AM CSTAppointment Outpatient Procedure Center in [place], [place] [address] [place] [address] Jessica Rousseau M.B.B.S. [address] [place] [phone] 12/07/2025 11:00 AM CSTDiagnostic Division of Pulmonary Medicine in [place], [place] [address] [place] [address] Jessica Rousseau M.B.B.S. [address] [place] [phone] 12/07/2025 1:00 PM CSTOffice Visit Pedro sanchez [facility] for Transplantation and Clinical Regeneration in [place], [place] [address] [place] [address] Jessica Rousseau M.B.B.S. [address] [place] [phone] 12/07/2025 1:30 PM CSTNurse Only [facility] for Transplantation and Clinical Regeneration in [place], [place] [address] [place] [address] Jessica Rousseau M.B.B.S. [address] [place] [phone] 12/07/2025 2:00 PM CSTOffice Visit Pedro Nazario [facility] for Transplantation and Clinical Regeneration in [place], [place] [address] [place] [address] Jessica Rousseau M.B.B.S. [address] [place] [phone] 12/07/2025 3:00 PM CSTOffice Visit Department of Palliative Care in [place], [place] [address] [place] [phone] Martine Pardo B.M.B.S., B.M., B.Ch. [address] [place] [address] documented as of this encounter Visit Diagnoses Not on filedocumented in this encounter Additional Health Concerns InfectionOnset DateLast IndicatedResolved TimeProtective Njoatbwyvrs53/14/2023 03/02/2023ssessmentNoted TimePHQ-9 Depression Total Score: 9:42 AM CDTdocumented as of this encounter Care Teams Team MemberRelationshipSpecialtyStart DateEnd Date Renzo Andres M.D. [address] [place] [phone] PCP - GeneralFamily Medicine04/2505/2312/4/25documented as of this encounter
--- OUTSIDE RECORDS SUMMARY | 2025-10-31 18:56 | XMS_ITS | Encounter Summary ---
Author Organization [facility] Address [address] [place] [address] Care Team Providers Care Wood Patternmaker Name Role Phone Elsewhere, Pcp Primary Care Provider Unavailabl e Reason for Visit * ReasonOnset DateCommentsPrescreen Immunization Qceews1209/28/2025 Encounter Details DateTypeDepartmentCare Team (Latest Contact Info)Uetkjenhniv74/10/2025linical Communication Section of Infectious Diseases in [place], [place] [address] [place] [address] David Alvarado RFritz [address] [place] [address] Prescreen Immunization Review Social History Tobacco UseTypesPacks/DayYears UsedDateSmoking Tobacco: NeverSmokeless Tobacco: NeverAlcohol UseStandard Drinks/WeekCommentsNever0 (1 standard drink = 0.6 oz pure alcohol)Humiliation, Afraid, Rape, and Kick questionnaireAnswerDate RecordedWithin the last year, have you been afraid of your partner or ex-partner?08/11/2025Within the last year, have you been humiliated [...] before you got the money to buymore.Patient kqbuuvzv85/25/2025Within the past 12 months, the food you bought just didn't last and you didn't have money to get more.Patient hzgwutwj10/25/2025PRAPARE - TransportationAnswerDate RecordedIn the past 12 months, has lack of transportation kept you from medical appointments or from getting medications?No08/13/2025In the past 12 months, has lack of transportation kept you from meetings, work, or from getting things needed for daily living?No08/13/2025HC UtilitiesAnswerDate RecordedIn the past 12 months has the [employer], gas, oil, or water [employer] threatened to shut off services in your home?Patient cihsdhfe38/25/2025Postpartum DepressionAnswerDate RecordedPHQ- 9 Total Score (max 27)12007/08/2025Housing StabilityAnswerDate RecordedWhat is your living situation today?I have a steady place to live08/13/2025Education AnswerDate RecordedWhat is the highest level of school you have completed or the highest degree you have received?Some college, no zvbzti9404/24/2019 CommentsNoSex and Gender InformationValueDate RecordedSex Assigned at Eiayer5612/26/2018 8:37 PM CSTLegal PexOmkkxq44/02/2017 2:43 PM CSTGender Identity Hercre2012/26/2018 8:37 PM CSTSexual OrientationChoose not to ujhrfjhr01/17/2021 3:46 PM CDTdocumented as of this encounter Miscellaneous Notes * Telephone Encounter - David Alvarado R.N. - 09/28/2025 9:11 AM CST Pre-Appt Vaccine Chart Review 09/28/2025 Patient not seen; Brief chart review only. Patient Type: SCT Visit 3. Date of SCT: 12/10/2024 (Day 292). Pt is Immunosuppressed: Yes Vaccines Ordered: SCT Visit 3 Additional Vaccines Needed: COVID-19, flu and HPV Missing Orders: Can order via Protocol Additional Notes: NIC DISEASE EPIDEMIOLOGIST documented in this encounter Plan of Treatment DateTypeDepartmentCare Team (Latest Contact Info)Aocqiwxrxfy12/29/2025 9:00 AM CSTOffice Visit Department of Obstetrics and Gynecology in [address] [phone] Alice Linares M.D. [address] [phone] 12/04/2025 1:30 PM CSTClinical Communication Virtual Review in [address] [phone] 12/07/2025 8:10 AM CSTLab Department of Laboratory Medicine and Pathology, [facility], in [address] [phone] Jessica Rousseau M.B.B.S. [address] [place] [phone] 12/07/2025 9:15 AM CSTAppointment Outpatient Procedure Center in [address] [phone] Jessica Rousseau M.B.B.S. [address] [place] [phone] 12/07/2025 11:00 AM CSTDiagnostic Division of Pulmonary Medicine in [address] [phone] Jessica Rousseau M.B.B.S. [address] [place] [phone] 12/07/2025 1:00 PM CSTOffice Visit [facility] Transplantation and Clinical Reg[facility] in [place], [place] [address] [place] [phone] Jessica Rousseau M.B.B.S. [address] [place] [phone] 12/07/2025 1:30 PM CSTNurse Only [facility] Transplantation and Clinical Regeneration in [place], [place] [address] [place] [phone] Jessica Rousseau M.B.B.S. [address] [place] [phone] 12/07/2025 2:00 PM CSTOffice Visit [facility] Transplantation and Clinical Regeneration in [place], [place] [address] [place] [phone] Jessica Rousseau M.B.B.S. [address] [place] [phone] 12/07/2025 3:00 PM CSTOffice Visit Department of Palliative Care in [place], [place] [address] [place] [phone] Martine Pardo B.M.B.S., B.M., B.Ch. [address] [place] [phone] documented as of this encounter Visit Diagnoses Not on filedocumented in this encounter Additional Health Concerns InfectionOnset DateLast IndicatedResolved TimeProtective Dnnjkgvqvxt64/14/2023 03/02/2023ssessmentNoted TimePHQ-9 Depression Total Score: 9:42 AM CDTdocumented as of this encounter Care Teams Team MemberRelationshipSpecialtyStart DateEnd Date Elsewhere, Pcp PCP - GeneralInternal Mceizshe92/5/25documented as of this encounter
--- OUTSIDE RECORDS SUMMARY | 2025-10-31 18:56 | XMS_ITS | Encounter Summary ---
Author Organization [facility] Address [address] [place] [address] Care Team Providers Care Silica Mixer Operator Name Role Phone Elsewhere, Pcp Primary Care Provider Unavailabl e Encounter Details DateTypeDepartmentCare Team (Latest Contact Info)Okzhbvzlxnv97/10/2025linical Communication Pedro Fatima [facility] Clinical Regeneration in [place], [place] [address] [place] [address] Jessica Rousseau M.B.B.S. [address] [place] [address] Social History Tobacco UseTypesPacks/DayYears UsedDateSmoking Tobacco: NeverSmokeless [...] before you got the money to buymore.Patient vtiimeiw87/25/2025Within the past 12 months, the food you bought just didn't last and you didn't have money to get more.Patient htleuygn24/25/2025PRAPARE - TransportationAnswerDate RecordedIn the past 12 months, has lack of transportation kept you from medical appointments or from getting medications?No08/13/2025In the past 12 months, has lack of transportation kept you from meetings, work, or from getting things needed for daily living?No08/13/2025HC UtilitiesAnswerDate RecordedIn the past 12 months has the [facility], gas, oil, or water [employer] threatened to shut off services in your home?Patient wfvbhtot11/25/2025Postpartum DepressionAnswerDate RecordedPHQ- 9 Total Score (max 27)12007/08/2025Housing StabilityAnswerDate RecordedWhat is your living situation today?I have a steady place to live08/13/2025Education AnswerDate RecordedWhat is the highest level of school you have completed or the highest degree you have received?Some college, no nymseg9704/24/2019 CommentsNoSex and Gender InformationValueDate RecordedSex Assigned at Qwjecu4612/26/2018 8:37 PM CSTLegal YquDajgzt53/02/2017 2:43 PM CSTGender Identity Ekxlcv1712/26/2018 8:37 PM CSTSexual OrientationChoose not to lmnusgnf56/17/2021 3:46 PM CDTdocumented as of this encounter Plan of Treatment DateTypeDepartmentCare Team (Latest Contact Info)Btgghuinoxs26/29/2025 9:00 AM CSTOffice Visit Department of Obstetrics and Gynecology in [place], [place] [address] [place] [phone] Alice Linares M.D. [address] [place] [phone] 12/04/2025 1:30 PM CSTClinical Communication Virtual Review in [place], [place] 200 [place] [address] 12/07/2025 8:10 AM CSTLab Department of Laboratory Medicine and Pathology, [facility] in [place], [place] [address] [place] [phone] Jessica Rousseau M.B.B.S. [address] [place] [phone] 12/07/2025 9:15 AM CSTAppointment Outpatient Procedure Center in [place], [place] [address] [place] [phone] Jessica Rousseau M.B.B.S. [address] [place] [phone] 12/07/2025 11:00 AM CSTDiagnostic Division of Pulmonary Medicine in [place], [place] [address] [place] [phone] Jessica Rousseau M.B.B.S. [address] [place] [phone] 12/07/2025 1:00 PM CSTOffice Visit [facility] in [place], [place] [address] [place] [phone] Jessica Rousseau M.B.B.S. [address] [place] [phone] 12/07/2025 1:30 PM CSTNurse Only [facility] in [place], [place] [address] [place] [address] Jessica Rousseau M.B.B.S. [address] [place] [phone] 12/07/2025 2:00 PM CSTOffice Visit Pedro Nazario [facility] Transplantation and Clinical Regeneration in [place], [place] [address] [place] [phone] Jessica Rousseau M.B.B.S. [address] [place] [phone] 12/07/2025 3:00 PM CSTOffice Visit Department of Palliative Care in [place], [place] [address] [place] [phone] Martine Pardo B.M.B.S., B.M., B.Ch. [address] [place] [phone] documented as of this encounter Visit Diagnoses Not on filedocumented in this encounter Additional Health Concerns InfectionOnset DateLast IndicatedResolved TimeProtective Qazyefafsjo75/14/2023 03/02/2023ssessmentNoted TimePHQ-9 Depression Total Score: 12007/08/2025 9:42 AM CDTdocumented as of this encounter Care Teams Team MemberRelationshipSpecialtyStart DateEnd Date Elsewhere, Pcp PCP - GeneralInternal Xgyrgsdf85/5/25documented as of this encounter
--- OUTSIDE RECORDS SUMMARY | 2025-10-31 18:57 | XMS_ITS | Encounter Summary ---
Author Organization [facility] Address [address] [place] [address] Care Team Providers Care Dining Host Name Role Phone Renzo Andres M.D. Primary Care Provider [phone] Reason for Visit * ReasonOnset DateCommentsPhone Rwgbimj7008/18/2025Lab results Encounter Details DateTypeDepartmentCare Team (Latest Contact Info)Jwilbanbjja67/30/2025linical Communication [facility] in [place], [place] [address] [place] [address] Jessica Rousseau M.B.B.S. [address] [place] [address] Phone Contact (Lab results) Social History Tobacco UseTypesPacks/DayYears UsedDateSmoking Tobacco: NeverSmokeless [...] before you got the money to buymore.Patient pkcagvse83/25/2025Within the past 12 months, the food you bought just didn't last and you didn't have money to get more.Patient xohsikfl60/25/2025PRAPARE - TransportationAnswerDate RecordedIn the past 12 months, has lack of transportation kept you from medical appointments or from getting medications?No08/13/2025In the past 12 months, has lack of transportation kept you from meetings, work, or from getting things needed for daily living?No08/13/2025HC UtilitiesAnswerDate RecordedIn the past 12 months has the [employer], gas, oil, or water [employer] threatened to shut off services in your home?Patient zyfglmxv41/25/2025Postpartum DepressionAnswerDate RecordedPHQ- 9 Total Score (max 27)12007/08/2025Housing StabilityAnswerDate RecordedWhat is your living situation today?I have a steady place to live08/13/2025Education AnswerDate RecordedWhat is the highest level of school you have completed or the highest degree you have received?Some college, no sddnac4104/24/2019 CommentsNoSex and Gender InformationValueDate RecordedSex Assigned at Xkxfda2312/26/2018 8:37 PM CSTLegal JzuRoxizv16/02/2017 2:43 PM CSTGender Identity Adxvjr8812/26/2018 8:37 PM CSTSexual OrientationChoose not to wgrerlah99/17/2021 3:46 PM CDTdocumented as of this encounter Miscellaneous Notes * Telephone Encounter - Elise Pizarro R.N. - 08/21/2025 4:22 PM CDT SUBJECTIVE CHIEF COMPLAINT / REASON FOR CALL Phone Contact (Lab results) Information Discussed Called Radha back. Discussed with her that we are awaiting further recommendations from Dr. Rousseau and Dr. Magdaleno's team. She is currently in the ER at [facility]. States for the past 4 days she has experienced: Chills Shortness of breath Nausea Vomiting Diarrhea Dry skin on face States she worries that this is GVHD. The local ER is currently running some tests. This headline writer advised that the message sent to her is our best recommendation at this time until we hear further from the provider team. This headline writer expressed that her recent EGD/colonoscopy was reassuring as it did not show obvious GVHD. Her labs have also remained stable, which is also reassuring. Labs today at her ER visit have been normal, per the provider at that hospital. This headline writer advised that over the weekend, if she is feeling worse and has someone drive her, the ER in [place] is recommended as the workup that can be done at [facility] may be more extensivethan her smaller local hospital. She verbalizes understanding and is very willing to do this shouldthe need arise. She is hoping for more extensive workup, per her response to this. PLAN She wants some different nausea meds (Zofran isn't helping). Is there anything else she could use? Please send to her local pharmacy if there is. Will send this to Dr. Rousseau for any further recommendations. Will see if she needs to/should follow-up with BMT before her scheduled return in November 2025. Disposition/Recommendation: see above Information/Education: patient/caller able to teach back Caller agreeable to plan of care: yes The following references were used: nursing clinical judgement documented in this encounter Plan of Treatment DateTypeDepartmentCare Team (Latest Contact Info)Vocbskfchyf27/29/2025 9:00 AM CSTOffice Visit Department of Obstetrics and Gynecology in [place], [place] [address] [place] [address] Alice Linares M.D. [address] [place] [phone] 12/04/2025 1:30 PM CSTClinical Communication Virtual Review in [place], [place] [address] [place] [address] 12/07/2025 8:10 AM CSTLab Department of Laboratory Medicine and Pathology, [facility] in [place], [place] [address] [place] [phone] Jessica Rousseau M.B.B.S. [address] [place] [phone] 12/07/2025 9:15 AM CSTAppointment Outpatient Procedure Center in [place], [place] [address] [place] [phone] Jessica Rousseau M.B.B.S. [address] [place] [phone] 12/07/2025 11:00 AM CSTDiagnostic Division of Pulmonary Medicine in [place], [place] [address] [place] [phone] Jessica Rousseau M.B.B.S. [address] [place] [phone] 12/07/2025 1:00 PM CSTOffice Visit [facility] in [place], [place] [address] [place] [phone] Jessica Rousseau M.B.B.S. [address] [place] [phone] 12/07/2025 1:30 PM CSTNurse Only [facility] in [place], [place] [address] [place] [phone] Jessica Rousseau M.B.B.S. [address] [place] [phone] 12/07/2025 2:00 PM CSTOffice Visit Pedro sanchez [facility] in [place], [place] [address] [place] [address] Jessica Rousseau M.B.B.S. [address] [place] [phone] 12/07/2025 3:00 PM CSTOffice Visit Department of Palliative Care in [place], [place] [address] [place] [phone] Martine Pardo B.M.BKatalinaS., B.M., B.Ch. [address] [place] [phone] documented as of this encounter Visit Diagnoses Not on filedocumented in this encounter Additional Health Concerns InfectionOnset DateLast IndicatedResolved TimeProtective Dhieqtsycce69/14/2023 03/02/2023ssessmentNoted TimePHQ-9 Depression Total Score: 12007/08/2025 9:42 AM CDTdocumented as of this encounter Care Teams Team MemberRelationshipSpecialtyStart DateEnd Date Renzo Andres M.D. [address] [place] [phone] PCP - GeneralFamily Medicine04/25/2312documented as of this encounter
--- OUTSIDE RECORDS SUMMARY | 2025-10-31 18:57 | XMS_ITS | Encounter Summary ---
Author Organization [facility] Address [address] [place] [address] Care Team Providers Care Clam Dredge Boat Captain Name Role Phone Renzo Andres M.D. Primary Care Provider [phone] Encounter Details DateTypeDepartmentCare Team (Latest Contact Info)Zbvigwkltep69/24/2025linical Communication Division of Hematology in [place], [place] [address] [place] [address] Jessica Rousseau M.B.B.S. [address] [place] [address] Social History Tobacco UseTypesPacks/DayYears UsedDateSmoking Tobacco: NeverSmokeless [...] before you got the money to buymore.Patient naaaigqy79/25/2025Within the past 12 months, the food you bought just didn't last and you didn't have money to get more.Patient fbndsjoe35/25/2025PRAPARE - TransportationAnswerDate RecordedIn the past 12 months, has lack of transportation kept you from medical appointments or from getting medications?No08/13/2025In the past 12 months, has lack of transportation kept you from meetings, work, or from getting things needed for daily living?No08/13/2025HC UtilitiesAnswerDate RecordedIn the past 12 months has the [employer], gas, oil, or water [employer] threatened to shut off services in your home?Patient kjoxafqs83/25/2025Postpartum DepressionAnswerDate RecordedPHQ- 9 Total Score (max 27)Housing StabilityAnswerDate RecordedWhat is your living situation today?I have a steady place to live08/13/2025Education AnswerDate RecordedWhat is the highest level of school you have completed or the highest degree you have received?Some college, no ptkhvk5204/24/2019 CommentsNoSex and Gender InformationValueDate RecordedSex Assigned at Fwadsa1512/26/2018 8:37 PM CSTLegal VlhVuvnsq86/02/2017 2:43 PM CSTGender Identity Zptjws6112/26/2018 8:37 PM CSTSexual OrientationChoose not to rwknopqb16/17/2021 3:46 PM CDTdocumented as of this encounter Plan of Treatment DateTypeDepartmentCare Team (Latest Contact Info)Hrmvmolwnsi62/29/2025 9:00 AM CSTOffice Visit Department of Obstetrics and Gynecology in [place], [place] [address] [place] [phone] Alice Linares M.D. [address] [place] [phone] 12/04/2025 1:30 PM CSTClinical Communication Virtual Review in [place], [place] [address] [place] [address] 12/07/2025 8:10 AM CSTLab Department of Laboratory Medicine and Pathology, [facility] in [place], [place] [address] [place] [phone] Jessica Rousseau M.B.B.S. [address] [place] [phone] 12/07/2025 9:15 AM CSTAppointment Outpatient Procedure Center in [place], [place] [address] [place] [phone] Jessica Rousseau M.B.B.S. [address] [place] [phone] 12/07/2025 11:00 AM CSTDiagnostic Division of Pulmonary Medicine in [place], [place] [address] [place] [phone] Jessica Rousseau M.B.B.S. [address] [place] [phone] 12/07/2025 1:00 PM CSTOffice Visit [facility] in [place], [place] [address] [place] [phone] Jessica Rousseau M.B.B.S. [address] [place] [phone] 12/07/2025 1:30 PM CSTNurse Only [facility] in [place], [place] [address] [place] [address] Jessica Rousseau M.B.B.S. [address] [place] [phone] 12/07/2025 2:00 PM CSTOffice Visit [facility] in [place], [place] [address] [place] [address] Jessica Rousseau M.B.B.S. [address] [place] [phone] 12/07/2025 3:00 PM CSTOffice Visit Department of Palliative Care in [place], [place] [address] [place] [phone] Martine Pardo B.M.B.S., B.M., B.Ch. [address] [place] [phone] documented as of this encounter Visit Diagnoses Not on filedocumented in this encounter Additional Health Concerns InfectionOnset DateLast IndicatedResolved TimeProtective Kvyydigqesr02/14/2023 03/02/2023ssessmentNoted TimePHQ-9 Depression Total Score: 9:42 AM CDTdocumented as of this encounter Care Teams Team MemberRelationshipSpecialtyStart DateEnd Date Renzo Andres M.D. [address] [place] [phone] PCP - GeneralFamily Medicine04/25/2312documented as of this encounter
--- OUTSIDE RECORDS SUMMARY | 2025-10-31 18:57 | XMS_ITS | Encounter Summary ---
Author Organization [facility] Address [address] [place] [address] Care Team Providers Care Dirt Shoveler Name Role Phone Renzo Andres M.D. Primary Care Provider [phone] Reason for Referral * Outpatient (Routine) - AuthorizedSpecialtyDiagnoses / ProceduresReferred By ContactReferred To ContactFamily Medicine Renzo Andres M.D. [address] [place] [address] Phone: tel: fax: [facility] Region Referral IDStatusReasonStart DateExpiration DateVisits RequestedVisits [id number]/4/20255/ OR LIVING ADVISOR Encounter Details DateTypeDepartmentCare Team (Latest Contact Info)Rzvcrtyhben97/04/2025Orders Only [facility] Renzo Andres M.[facility]. [address] [place] [address] Social History Tobacco UseTypesPacks/DayYears UsedDateSmoking Tobacco: NeverSmokeless [...] sexual activity by your part ner or ex-partner?08/11/2025Hunger Vital SignAnswerDate RecordedWithin the past 12 months, you worried that your food would run out before you got the money to buymore.Patient guewmqbp50/25/2025Within the past 12 months, the food you bought just didn't last and you didn't have money to get more.Patient gtuxotto13/25/2025PRAPARE - TransportationAnswerDate RecordedIn the past 12 months, has lack of transportation kept you from medical appointments or from getting medications?No08/13/2025In the past 12 months, has lack of transportation kept you from meetings, work, or from getting things needed for daily living?No08/13/2025HC UtilitiesAnswerDate RecordedIn the past 12 months has the electric, gas, oil, or water company threatened to shut off services in your home?Patient fgnxmimh61/25/2025Postpartum DepressionAnswerDate RecordedPHQ- 9 Total Score (max 27)Housing StabilityAnswerDate RecordedWhat is your living situation today?I have a steady place to live08/13/2025Education AnswerDate RecordedWhat is the highest level of school you have completed or the highest degree you have received?Some college, no srpnif0104/24/2019 CommentsNoSex and Gender InformationValueDate RecordedSex Assigned at Ghgkuo7612/26/2018 8:37 PM CSTLegal NkiVjsofy70/02/2017 2:43 PM CSTGender Identity Rmygfx6212/26/2018 8:37 PM CSTSexual OrientationChoose not to /17/2021 3:46 PM CDTdocumented as of this encounter Plan of Treatment DateTypeDepartmentCare Team (Latest Contact Info)Exuzsgljpkk50/29/2025 9:00 AM CSTOffice Visit Department of Obstetrics and Gynecology in [place], [place] [address] [place] [phone] Alice Linares M.D. [address] [place] [phone] 12/04/2025 1:30 PM CSTClinical Communication Virtual Review in [address] [phone] 12/07/2025 8:10 AM CSTLab Department of Laboratory Medicine and Pathology, [facility], in [place], [place] [address] [place] [phone] Jessica Rousseau M.B.B.S. [address] [place] [phone] 12/07/2025 9:15 AM CSTAppointment Outpatient Procedure Center in [address] [phone] Jessica Rousseau M.B.B.S. [address] [place] [phone] 12/07/2025 11:00 AM CSTDiagnostic Division of Pulmonary Medicine in [address] [phone] Jessica Rousseau M.B.B.S. [address] [place] [phone] 12/07/2025 1:00 PM CSTOffice Visit [facility] in [place], [place] [address] [place] [phone] Jessica Rousseau M.B.B.S. [address] [place] [phone] 12/07/2025 1:30 PM CSTNurse Only [facility] Clinical Regeneration in [place], [place] [address] [place] [phone] Jessica Rousseau M.B.B.S. [address] [place] [phone] 12/07/2025 2:00 PM CSTOffice Visit [facility] Clinical Regeneration in [place], [place] [address] [place] [phone] Jessica Rousseau M.B.B.S. [address] [place] [phone] 12/07/2025 3:00 PM CSTOffice Visit Department of Palliative Care in [place], [place] [address] [place] [phone] Martine Pardo B.M.B.S., B.M., B.Ch. [address] [place] [phone] NameTypePriorityAssociated DiagnosesOrder ScheduleFamily Medicine office visit (clinic)Outpatient ReferralRoutineExpected: 10/06/2025, Expires: 03/11/2026 documented as of this encounter Visit Diagnoses Not on filedocumented in this encounter Additional Health Concerns InfectionOnset DateLast IndicatedResolved TimeProtective Ilabwbxylcw90/ 04/14/2023AssessmentNoted TimePHQ-9 Depression Total Score: 9:42 AM CDTdocumented as of this encounter Care Teams Team MemberRelationshipSpecialtyStart DateEnd Date Renzo Andres M.D. [address] [place] [address] [place] [phone] PCP - GeneralFamily Medicine04/2505/2312/4/25documented as of this encounter
--- OUTSIDE RECORDS SUMMARY | 2025-10-31 18:57 | XMS_ITS | Encounter Summary ---
Author Organization [facility] Address [address] [place] [address] Care Team Providers Care Electrical Contacts Adjuster Name Role Phone Renzo Andres M.D. Primary Care Provider [phone] Encounter Details DateTypeDepartmentCare Team (Latest Contact Info)Mfewkuxqqro78/07/2025linical Communication [facility] in [place], [place] [address] [place] [address] Geo Aguilar D.O. [address] [place] [address] Social History Tobacco UseTypesPacks/DayYears UsedDateSmoking Tobacco: NeverSmokeless [...] before you got the money to buymore.Patient nitrbaim99/25/2025Within the past 12 months, the food you bought just didn't last and you didn't have money to get more.Patient nuycsdeq29/25/2025PRAPARE - TransportationAnswerDate RecordedIn the past 12 months, has lack of transportation kept you from medical appointments or from getting medications?No08/13/2025In the past 12 months, has lack of transportation kept you from meetings, work, or from getting things needed for daily living?No08/13/2025HC UtilitiesAnswerDate RecordedIn the past 12 months has the electric, gas, oil, or water [employer] threatened to shut off services in your home?Patient zqwrlwap49/25/2025Postpartum DepressionAnswerDate RecordedPHQ- 9 Total Score (max 27)12007/08/2025Housing StabilityAnswerDate RecordedWhat is your living situation today?I have a steady place to live08/13/2025Education AnswerDate RecordedWhat is the highest level of school you have completed or the highest degree you have received?Some college, no fwdodb1004/24/2019 CommentsNoSex and Gender InformationValueDate RecordedSex Assigned at Xwlurt4512/26/2018 8:37 PM CSTLegal LrrXmpvgo91/02/2017 2:43 PM CSTGender Identity Lrnwhw3012/26/2018 8:37 PM CSTSexual OrientationChoose not to sdcqmeoy32/17/2021 3:46 PM CDTdocumented as of this encounter Plan of Treatment DateTypeDepartmentCare Team (Latest Contact Info)Oqztajxymwc63/29/2025 9:00 AM CSTOffice Visit Department of Obstetrics and Gynecology in [place], [place] [address] [place] [phone] Alice Linares M.D. [address] [place] [phone] 12/04/2025 1:30 PM CSTClinical Communication Virtual Review in [place], [place] [address] [place] [address] 12/07/2025 8:10 AM CSTLab Department of Laboratory Medicine and Pathology, [facility] in [place], [place] [address] [place] [phone] Jessica Rousseau M.B.B.S. [address] [place] [phone] 12/07/2025 9:15 AM CSTAppointment Outpatient Procedure Center in [place], [place] [address] [place] [phone] Jessica Rousseau M.B.B.S. [address] [place] [phone] 12/07/2025 11:00 AM CSTDiagnostic Division of Pulmonary Medicine in [place], [place] [address] [place] [phone] Jessica Rousseau M.B.B.S. [address] [place] [phone] 12/07/2025 1:00 PM CSTOffice Visit [facility] in [place], [place] [address] [place] [phone] Jessica Rousseau M.B.B.S. [address] [place] [phone] 12/07/2025 1:30 PM CSTNurse Only [facility] in [place], [place] [address] [place] [address] Jessica Rousseau M.B.B.S. [address] [place] [phone] 12/07/2025 2:00 PM CSTOffice Visit [facility] in [place], [place] [address] [place] [address] Jessica Rousseau M.B.B.S. [address] [place] [phone] 12/07/2025 3:00 PM CSTOffice Visit Department of Palliative Care in [place], [place] [address] [place] [phone] Martine Pardo B.M.B.S., B.M., B.Ch. [address] [place] [phone] documented as of this encounter Visit Diagnoses Not on filedocumented in this encounter Additional Health Concerns InfectionOnset DateLast IndicatedResolved TimeProtective Fofccahsbzo31/14/2023 03/02/2023ssessmentNoted TimePHQ-9 Depression Total Score: 9:42 AM CDTdocumented as of this encounter Care Teams Team MemberRelationshipSpecialtyStart DateEnd Date Renzo Andres M.D. [address] [place] [address] [place] [phone] PCP - GeneralFamily Medicine04/25/2312documented as of this encounter
--- OUTSIDE RECORDS SUMMARY | 2025-10-31 18:57 | XMS_ITS | Encounter Summary ---
Author Organization [facility] Address [address] [place] [address] Care Team Providers Care Small Package And Bundle Sorter Clerk Name Role Phone Renzo Andres M.D. Primary Care Provider [phone] Reason for Visit * ReasonCommentsMed Refill Encounter Details DateTypeDepartmentCare Team (Latest Contact Info)Iuqddugtpvh85/29/2025Refill [facility], [facility], Ninth Floor [address] [place] [address] Marky Pond M.D. [address] [place] [address] Med Refill Social History Tobacco UseTypesPacks/DayYears UsedDateSmoking [...] before you got the money to buymore.Patient tnhwohli17/25/2025Within the past 12 months, the food you bought just didn't last and you didn't have money to get more.Patient amqcmvjf85/25/2025PRAPARE - TransportationAnswerDate RecordedIn the past 12 months, has lack of transportation kept you from medical appointments or from getting medications?No08/13/2025In the past 12 months, has lack of transportation kept you from meetings, work, or from getting things needed for daily living?No08/13/2025HC UtilitiesAnswerDate RecordedIn the past 12 months has the [employer], gas, oil, or water [employer] threatened to shut off services in your home?Patient mzznauzi41/25/2025Postpartum DepressionAnswerDate RecordedPHQ- 9 Total Score (max 27)12007/08/2025Housing StabilityAnswerDate RecordedWhat is your living situation today?I have a steady place to live08/13/2025Education AnswerDate RecordedWhat is the highest level of school you have completed or the highest degree you have received?Some college, no brjnjb2504/24/2019 CommentsNoSex and Gender InformationValueDate RecordedSex Assigned at Dudkpu4512/26/2018 8:37 PM CSTLegal RmwKfxxka42/02/2017 2:43 PM CSTGender Identity Jpvvyg3812/26/2018 8:37 PM CSTSexual OrientationChoose not to btwnxpji74/17/2021 3:46 PM CDTdocumented as of this encounter Plan of Treatment DateTypeDepartmentCare Team (Latest Contact Info)Yoovxsnrzyp26/29/2025 9:00 AM CSTOffice Visit Department of Obstetrics and Gynecology in [place], [place] [address] [place] [phone] Alice Linares M.D. [address] [place] [phone] 12/04/2025 1:30 PM CSTClinical Communication Virtual Review in [place], [place] 200 [place] [address] 12/07/2025 8:10 AM CSTLab Department of Laboratory Medicine and Pathology, [facility] in [place], [place] [address] [place] [phone] Jessica Rousseau M.B.B.S. [address] [place] [phone] 12/07/2025 9:15 AM CSTAppointment Outpatient Procedure Center in [place], [place] [address] [place] [phone] Jessica Rousseau M.B.B.S. [address] [place] [phone] 12/07/2025 11:00 AM CSTDiagnostic Division of Pulmonary Medicine in [place], [place] [address] [place] [phone] Jessica Rousseau M.B.B.S. [address] [place] [phone] 12/07/2025 1:00 PM CSTOffice Visit [facility] in [place], [place] [address] [place] [phone] Jessica Rousseau M.B.B.S. [address] [place] [phone] 12/07/2025 1:30 PM CSTNurse Only [facility] in [place], [place] [address] [place] [address] Jessica Rousseau M.B.B.S. [address] [place] [phone] 12/07/2025 2:00 PM CSTOffice Visit [facility] in [place], [place] [address] [place] [address] Jessica Rousseau M.B.B.S. [address] [place] [phone] 12/07/2025 3:00 PM CSTOffice Visit Department of Palliative Care in [place], [place] [address] [place] [phone] Martine Pardo B.M.B.S., B.M., B.Ch. [address] [place] [phone] documented as of this encounter Visit Diagnoses Not on filedocumented in this encounter Additional Health Concerns InfectionOnset DateLast IndicatedResolved TimeProtective Mzrmtfldvtl97/14/2023 03/02/2023ssessmentNoted TimePHQ-9 Depression Total Score: 12007/08/2025 9:42 AM CDTdocumented as of this encounter Care Teams Team MemberRelationshipSpecialtyStart DateEnd Date Renzo Andres M.D. [address] [place] [address] [place] [phone] PCP - GeneralFamily Medicine04/2505/2312/4/25documented as of this encounter
--- OUTSIDE RECORDS SUMMARY | 2025-10-31 18:57 | XMS_ITS | Encounter Summary ---
Author Organization [facility] Address [address] [place] [address] Care Team Providers Care Electrician Manager Name Role Phone Renzo Andres M.D. Primary Care Provider [phone] Reason for Visit * ReasonOnset DateCommentsPhone Rqbfpli4408/17/2025 Encounter Details DateTypeDepartmentCare Team (Latest Contact Info)Ndngnyprxts65/29/2025linical Communication [facility] in [place], [place] [address] [place] [address] Jessica Rousseau M.B.B.S. [address] [place] [address] Phone Contact Social History Tobacco UseTypesPacks/DayYears UsedDateSmoking Tobacco: NeverSmokeless [...] before you got the money to buymore.Patient ulffswxj74/25/2025Within the past 12 months, the food you bought just didn't last and you didn't have money to get more.Patient fhfqfejr28/25/2025PRAPARE - TransportationAnswerDate RecordedIn the past 12 months, has lack of transportation kept you from medical appointments or from getting medications?No08/13/2025In the past 12 months, has lack of transportation kept you from meetings, work, or from getting things needed for daily living?No08/13/2025HC UtilitiesAnswerDate RecordedIn the past 12 months has the [employer], gas, oil, or water [employer] threatened to shut off services in your home?Patient moanhsee81/25/2025Postpartum DepressionAnswerDate RecordedPHQ- 9 Total Score (max 27)12007/08/2025Housing StabilityAnswerDate RecordedWhat is your living situation today?I have a steady place to live08/13/2025Education AnswerDate RecordedWhat is the highest level of school you have completed or the highest degree you have received?Some college, no rfbjjv0404/24/2019 CommentsNoSex and Gender InformationValueDate RecordedSex Assigned at Veauda2812/26/2018 8:37 PM CSTLegal SodZwhcid88/02/2017 2:43 PM CSTGender Identity Nhtuox0412/26/2018 8:37 PM CSTSexual OrientationChoose not to idrshxlo81/17/2021 3:46 PM CDTdocumented as of this encounter Miscellaneous Notes * Telephone Encounter - aKren Allen R.N., O.C.N. - 08/17/2025 3:18 PM CDT ASSESSMENT Returned patient call. She states she continues to have shooting pain in her arms and legs, rating a 6-7/10. Reports continued nausea, not controlled by Zofran but no vomiting. Continues to have intermittent dizziness. She developed diarrhea yesterday with 4 stools and 2 so far today which describes as loose but not watery. She took Pepto Bismol with no relief. She developed on and off headaches yesterday above her right eye, no nasal congestion, took tylenol with no relief. She reports that she developed chills in her chest, denies fever. Discussed the option of restarting Prednisone as previously recommended by Dr. Rousseau. She states that the steroids make her anxiety worse so she is reluctant to try again. She starts her outpatient therapy on 08/25 3 days a week with [facility] Information sent to provider. Disposition/Recommendation: notified provider and awaiting recommendations. Information/Education: patient/caller able to teach back. Caller agreeable to plan of care: yes. The following references were used: nursing clinical judgement. documented in this encounter Plan of Treatment DateTypeDepartmentCare Team (Latest Contact Info)Bvdylscgaec84/29/2025 9:00 AM CSTOffice Visit Department of Obstetrics and Gynecology in [address] [phone] Alice Linares M.D. [address] [place] [phone] 12/04/2025 1:30 PM CSTClinical Communication Virtual Review in [place], [place] 200 [place] [address] 12/07/2025 8:10 AM [facility] Department of Laboratory Medicine and Pathology, [facility], in [place], [place] [address] [place] [phone] Jessica Rousseau M.B.B.S. [address] [place] [address] 12/07/2025 9:15 AM CSTAppointment Outpatient Procedure Center in [place], [place] [address] [place] [address] Jessica Rousseau M.B.B.S. [address] [place] [phone] 12/07/2025 11:00 AM CSTDiagnostic Division of Pulmonary Medicine in [place], [place] [address] [place] [address] Jessica Rousseau M.B.B.S. [address] [place] [phone] 12/07/2025 1:00 PM CSTOffice Visit [facility] in [place], [place] [address] [place] [address] Jessica Rousseau M.B.B.S. [address] [place] [phone] 12/07/2025 1:30 PM CSTNurse Only [facility] in [place], [place] [address] [place] [address] Jessica Rousseau M.B.B.S. [address] [place] [phone] 12/07/2025 2:00 PM CSTOffice Visit [facility] in [place], [place] [address] [place] [address] Jessica Rousseau M.B.B.S. [address] [place] [phone] 12/07/2025 3:00 PM CSTOffice Visit Department of Palliative Care in [place], [place] [address] [place] [address] Martine Pardo B.M.BKatalinaS., B.M., B.Ch. [address] [place] [phone] documented as of this encounter Visit Diagnoses Not on filedocumented in this encounter Additional Health Concerns InfectionOnset DateLast IndicatedResolved TimeProtective Oaworzenhpp90/14/2023 03/02/2023ssessmentNoted TimePHQ-9 Depression Total Score: 9:42 AM CDTdocumented as of this encounter Care Teams Team MemberRelationshipSpecialtyStart DateEnd Date Renzo Andres M.D. [address] [place] [phone] PCP - GeneralFamily Medicine04/2505/2312/4/25documented as of this encounter
--- OUTSIDE RECORDS SUMMARY | 2025-10-31 18:57 | XMS_ITS | Encounter Summary ---
Author Organization [facility] Address [address] [place] [address] Care Team Providers Care Inspection And Testing Supervisor Name Role Phone Renzo Andres M.D. Primary Care Provider [phone] Reason for Visit * ReasonOnset DateCommentsMed Xdkrlf5709/03/2025 Encounter Details DateTypeDepartmentCare Team (Latest Contact Info)Qdfwjuiduxm07/16/2025Refill Department of Palliative Care in [place], [place] [address] [place] [address] Meghan Osorio M.D. [address] [place] [address] Med Refill Social History Tobacco UseTypesPacks/DayYears UsedDateSmoking [...] before you got the money to buymore.Patient xdlulhvv70/25/2025Within the past 12 months, the food you bought just didn't last and you didn't have money to get more.Patient pffotbci83/25/2025PRAPARE - TransportationAnswerDate RecordedIn the past 12 months, has lack of transportation kept you from medical appointments or from getting medications?No08/13/2025In the past 12 months, has lack of transportation kept you from meetings, work, or from getting things needed for daily living?No08/13/2025HC UtilitiesAnswerDate RecordedIn the past 12 months has the [employer], gas, oil, or water [employer] threatened to shut off services in your home?Patient /25/2025Postpartum DepressionAnswerDate RecordedPHQ- 9 Total Score (max 27)12007/08/2025Housing StabilityAnswerDate RecordedWhat is your living situation today?I have a steady place to live08/13/2025Education AnswerDate RecordedWhat is the highest level of school you have completed or the highest degree you have received?Some college, no kgexjj9104/24/2019 CommentsNoSex and Gender InformationValueDate RecordedSex Assigned at Uemctu8812/26/2018 8:37 PM CSTLegal IeyYrvlqd41/02/2017 2:43 PM CSTGender Identity Txqxka3912/26/2018 8:37 PM CSTSexual OrientationChoose not to ewrcglym52/17/2021 3:46 PM CDTdocumented as of this encounter Miscellaneous Notes * Telephone Encounter - Mallory Delgadillo R.N. [facility] - 09/03/2025 3:11 PM CDT Prescription Refill Request Current Prescription Regimen: Buprenorphine 5 mcg/hr one patch per week Last strength/amount/date filled: Buprenorphine 5 mcg/hr, #4 filled 08/14/25 [place] [employer] reviewed Prescription/amount provided today: Buprenorphine 5 mcg/hr, #4 Prescription will be e-Prescribed to the following pharmacy: [facility] [place] Last appointment was in person office visit on 08/11/25 Last in-office visit if different than above: n/a Next palliative appointment is telemedicine live video visit on 09/11/25 Prescription was authorized by Felicia Watt CNP documented in this encounter Plan of Treatment DateTypeDepartmentCare Team (Latest Contact Info)Vztkjklhtbb76/29/2025 9:00 AM CSTOffice Visit Department of Obstetrics and Gynecology in [place], [place] [address] [place] [phone] Alice Linares M.D. [address] [place] [phone] 12/04/2025 1:30 PM CSTClinical Communication Virtual Review in [place], [place] 200 [place] [phone] 12/07/2025 8:10 AM CSTLab Department of Laboratory Medicine and Pathology, [facility], in [place], [place] [address] [place] [phone] Jessica Rousseau M.B.B.S. [address] [place] [phone] 12/07/2025 9:15 AM CSTAppointment Outpatient Procedure Center in [place], [place] [address] [place] [phone] Jessica Rousseau M.B.B.S. [address] [place] [phone] 12/07/2025 11:00 AM CSTDiagnostic Division of Pulmonary Medicine in [place], [place] [address] [place] [address] Jessica Rousseau M.B.B.S. [address] [place] [phone] 12/07/2025 1:00 PM CSTOffice Visit [facility] in [place], [place] [address] [place] [address] Jessica Rousseau M.B.B.S. [address] [place] [phone] 12/07/2025 1:30 PM CSTNurse Only [facility] in [place], [place] [address] [place] [address] Jessica Rousseau M.B.B.S. [address] [place] [phone] 12/07/2025 2:00 PM CSTOffice Visit [facility] in [place], [place] [address] [place] [address] Jessica Rousseau M.B.B.S. [address] [place] [phone] 12/07/2025 3:00 PM CSTOffice Visit Department of Palliative Care in [place], [place] [address] [place] [address] Martine Pardo B.M.B.S., B.M., B.Ch. [address] [place] [phone] documented as of this encounter Visit Diagnoses Not on filedocumented in this encounter Additional Health Concerns InfectionOnset DateLast IndicatedResolved TimeProtective Muoziilynig63/14/2023 03/02/2023ssessmentNoted TimePHQ-9 Depression Total Score: 9:42 AM CDTdocumented as of this encounter Care Teams Team MemberRelationshipSpecialtyStart DateEnd Date Renzo Andres M.D. [address] [place] [address] [place] [address] PCP - GeneralFamily Medicine04/2505/2312/4/25documented as of this encounter
--- OUTSIDE RECORDS SUMMARY | 2025-10-31 18:57 | XMS_ITS | Encounter Summary ---
Author Organization [facility] Address [address] [place] [address] Care Team Providers Care Sleep Technologist Name Role Phone Renzo Andres M.D. Primary Care Provider [phone] Encounter Details DateTypeDepartmentCare Team (Latest Contact Info)Flnnyjgwpmm49/14/2025linical Communication Pedro Fatima [facility] in [place], [place] [address] [place] [address] Jessica Rousseau M.B.B.S. [address] [place] [address] Social History Tobacco UseTypesPacks/DayYears UsedDateSmoking Tobacco: NeverSmokeless [...] you didn't have money to get more.Patient kxjzbdeq79/25/2025PRAPARE - TransportationAnswerDate RecordedIn the past 12 months, has lack of transportation kept you from medical appointments or from getting medications?No08/13/2025In the past 12 months, has lack of transportation kept you from meetings, work, or from getting things needed for daily living?No08/13/2025HC UtilitiesAnswerDate RecordedIn the past 12 months has the electric, gas, oil, or water company threatened to shut off services in your home?Patient lhzgtonu67/25/2025Postpartum DepressionAnswerDate RecordedPHQ- 9 Total Score (max 27)12007/08/2025Housing StabilityAnswerDate RecordedWhat is your living situation today?I have a steady place to live08/13/2025Education AnswerDate RecordedWhat is the highest level of school you have completed or the highest degree you have received?Some college, no qnqeye1504/24/2019 CommentsNoSex and Gender InformationValueDate RecordedSex Assigned at Wxtscr0212/26/2018 8:37 PM CSTLegal FctOgigbx33/02/2017 2:43 PM CSTGender Identity Jtynwv4012/26/2018 8:37 PM CSTSexual OrientationChoose not to umeyfdwa46/17/2021 3:46 PM CDTdocumented as of this encounter Miscellaneous Notes * Telephone Encounter - Christine De Guzman - 09/01/2025 9:31 AM CDT ----- Message from Nurse Vianney sent at 09/01/2025 8:28 AM CDT ----- Regarding: FW: Local Labs It looks like patient no showed labs. Please call her to reschedule. Please confirm when this is done. Thank you! ----- Message ----- From: Tara Marin R.N., BMT-CN Sent: 08/27/2025 12:00 AM CDT To: Rst Txp Bmt Team 2 Rn Subject: Local Labs Post allo of Dr. Rousseau. Outside labs can be found in [employer] Labs Ordered: CBC with differential, CMP, and Mag Frequency: Once BMT Return Appointment: Nov 2025 Additional Information: Patient to have blood draw once to monitor WBC/ANC. If those are WNL she does not need another one until she returns. documented in this encounter Plan of Treatment DateTypeDepartmentCare Team (Latest Contact Info)Pjccoxnrhig85/29/2025 9:00 AM CSTOffice Visit Department of Obstetrics and Gynecology in [address] [phone] Alice Linares M.D. [address] [place] [phone] 12/04/2025 1:30 PM CSTClinical Communication Virtual Review in [place], [place] 200 [place] [phone] 12/07/2025 8:10 AM CSTLab Department of Laboratory Medicine and Pathology, [facility], in [place], [place] [address] [place] [phone] Jessica Rousseau M.B.B.S. [address] [place] [phone] 12/07/2025 9:15 AM CSTAppointment Outpatient Procedure Center in [place], [place] [address] [place] [phone] Jessica Rousseau M.B.B.S. [address] [place] [address] 12/07/2025 11:00 AM CSTDiagnostic Division of Pulmonary Medicine in [place], [place] [address] [place] [address] Jessica Rousseau M.B.B.S. [address] [place] [phone] 12/07/2025 1:00 PM CSTOffice Visit [facility] in [place], [place] [address] [place] [address] Jessica Rousseau M.B.B.S. [address] [place] [phone] 12/07/2025 1:30 PM CSTNurse Only [facility] in [place], [place] [address] [place] [address] Jessica Rousseau M.B.B.S. [address] [place] [phone] 12/07/2025 2:00 PM CSTOffice Visit [facility] in [place], [place] [address] [place] [address] Jessica Rousseau M.B.B.S. [address] [place] [phone] 12/07/2025 3:00 PM CSTOffice Visit Department of Palliative Care in [place], [place] [address] [place] [address] Martine Pardo B.M.B.S., BTiffanie., B.Ch. [address] [place] [address] documented as of this encounter Visit Diagnoses Not on filedocumented in this encounter Additional Health Concerns InfectionOnset DateLast IndicatedResolved TimeProtective Otrckxluarj92/14/2023 03/02/2023ssessmentNoted TimePHQ-9 Depression Total Score: 9:42 AM CDTdocumented as of this encounter Care Teams Team MemberRelationshipSpecialtyStart DateEnd Date Renzo Andres M.D. [address] [place] [phone] PCP - GeneralFamily Medicine04/2505/2312/4/25documented as of this encounter
[2025-10-31 19:14] VITALS: BP 119/87; PULSE 85; RESP 16; O2SAT 95
== END 2025-10-31 20:23 | disposition home or self-care (01) ==
PROVIDERS: Emergency Provider Family Medicine; PCP Registered Nurse
DX: R10.32 Left lower quadrant pain (principal)
CPT/HCPCS: 96374; 99284; A9270; J1885

== ENCOUNTER 2025-11-04 12:24 | Emergency (ER) | payer MEDICARE, BC, SELFPAY ==
--- OUTSIDE RECORDS SUMMARY | 2025-11-04 12:27 | XMS_ITS | Clinical Summary ---
Author Organization [facility] Address [address] [place] [id number] Care Team Providers Care Station Cook Name Role Phone System, Provider Not In Primary Care Provider Un available Allergies Active AllergyReactionsCriticalityNoted DateCommentsAmoxicillinSwelling 03/01/20172755MderdwwcuXtbbotwh48/13/2017Grapefruit ExtractOther (See Comments) 06/28/2021 Interaction with Tasigna medication Interaction with Tasigna medication Medications MedicationSigDispense QuantityRefillsLast FilledStart DateEnd DateStatus prochlorperazine (COMPAZINE) 10 MG tablet Take as czmxfr0403/22/2021ctive ondansetron (ZOFRAN) 4 MG tablet Take as dybmll1202/09/2021ctive hydrochlorothiazide (HYDRODIURIL) 25 MG tablet Take 25 [...] Indications:Chronic migraine without aura, intractable, without status gvrcfdgilkf839 UnitsIMEVERY 3 QYCOZW22ctive Social History Tobacco UseTypesPacks/DayYears UsedDateSmoking Tobacco: NeverSmokeless Tobacco: Never Tobacco Cessation:Counseling Given: Not Answered PHQ-2AnswerDate RecordedPHQ-2 Iuzzc943dolescent EducationAnswerDate RecordedGetting School Help NeededNot on file08/11/2023CommentsUnknown Sex and Gender InformationValueDate RecordedSex Assigned at BirthNot on file Legal RoqNnhyue98/22/2022 12:12 PM CDTGender IdentityNot on fileSexual OrientationNot on file Last Filed Vital Signs Vital SignReadingTime TakenCommentsBlood Pfaexbtd151/8104 2:36 PM CDT Arfei58921 2:36 PM CDTTemperature--Respiratory Rate--Oxygen Saturation-- Inhaled Oxygen Concentration--Weight--Height--Body Mass Index-- Plan of Treatment Not on file Insurance [facility] Address: [id number] [place] [address] [facility] Address: [id number] [place] [address] Care Teams Team MemberRelationshipSpecialtyStart DateEnd Date System, Provider Not In PCP - Generalinic06/08/22
--- OUTSIDE RECORDS SUMMARY | 2025-11-04 12:28 | XMS_ITS | Clinical Summary ---
Author Organization [facility] Address [address] [place] [address] Care Team Providers Care Director Of Direct Marketing Name Role Phone Antoinette Palacio PhD, LP Unavailable [phone] Shweta Graciakim Huber FIELD STAFF Unavailable [phone] Unavailable [phone] Staff, Other Clinical Unavailable Unavailabl e Ermelinda Pierre MD Primary Care Prov ider Allergies Active AllergyReactionsCriticalityNoted BavgRdfyaoipQdyfnwxggdtIchsp59/13/2017 GrapefruitOther - Describe In Comment Field06/28/2021 Interaction with Tasigna medication Grapefruit ExtractOther - Describe In Comment Field06/28/2021 Interaction with Tasigna medication Interaction with Tasigna medication TepmlpharDchmk60/13/2017 Medications MedicationSigDispense QuantityRefillsLast FilledStart DateEnd DateStatus dasatinib [...] Active Problems ProblemNoted DateDiagnosed DateEncounters for administrative yytrpmtn31/14/2025 Encounters for administrative uflisogg67/04/2024Obesity (BMI 30.0-34.9) 09/20/2022Insulin rihfqyvxdv42/02/2022besity, Class II, BMI 35-39.908/ Weight gain07/07/2022Eating /19/2022hronic mixed headache syndrome 06/17/2019Localized enlarged lymph nodes04/03/2019Pain in joint03/06/2019Chronic myeloid iqmseeka41/23/2019Controlled substance agreement ksgtgn3404/09/2017 Overview (03/19/2018): Signed 11/20/2016 Dr Mady Yanez Psychiatry Relationship /23/0323Onqhd57/23/2017Major depressive disorder, recurrent episode, hyagznsc96/28/2016Generalized anxiety acxlfkel99/19/2015 Adjustment disorder with anxious mood01/07/20155914Paxhcbwjldwvu22/16/2013Tension headache Resolved Problems ProblemNoted DateDiagnosed DateResolved DateDepression, major, recurrent, txmrprvm19Major depressive disorder, recurrent, severe without psychotic iwdjxlbm18Depression, dimwcvvbks71 Supervision of normal first giwopsnjb11/18/ttention deficit disorder without mention of hjtedsruxrmms09Major depressive disorder, recurrent episode, etpqhnxbcho77 Encounters DateTypeDepartmentCare FtlbIociqeoogsu84/11/2025 9:00 AM ASSISTANT CLINICAL DIRECTOR - 10/29/2025 11:59 PM CSTHospital Encounter [facility] [address] [place] [address] Generalized anxiety disorder; Major depressive disorder, recurrent episode, moderate (HC)10/29/2025Travel 10/28/2025Nurse Triage [facility] [address] [place] [address] Ermelinda Pierre MD Abdominal Pain10/27/2025Telephone [facility] [address] [place] [address] Antonina Donovan Satnam DT10/27/2025Telephone [facility] [address] [place] [address] Belkis Weathers (This insurance underwriter spoke with the patient, who is currently in urgent care. Spoke about attendance and discharging to use day treatment benefit when healthier or a referral to virtual programming.)10/27/2025Nurse Triage [facility] [address] [place] [address] Ermelinda Pierre MD Abdominal Pain10/22/2025Telephone [facility] [address] [place] [address] Irina Hazel Lsctspucrkn82/03/2025 9:00 AM ASSISTANT CLINICAL DIRECTOR - 10/21/2025 11:59 PM CSTHospital Encounter [address] [address] Generalized anxiety disorder; Major depressive disorder, recurrent episode, moderate (HC)10/20/2025 9:00 AM ASSISTANT CLINICAL DIRECTOR - 10/20/2025 11:59 PM CSTHospital Encounter [facility] [address] [place] [address] Generalized anxiety disorder; Major depressive disorder, recurrent episode, moderate (HC)10/20/2025Travel 10/14/2025 8:58 AM ASSISTANT CLINICAL DIRECTOR - 10/14/2025 11:59 PM CSTHospital Encounter [address] [address] Generalized anxiety disorder; Major depressive disorder, recurrent episode, moderate (HC)10/14/2025Travel 10/08/2025 8:56 AM ASSISTANT CLINICAL DIRECTOR - 10/08/2025 11:59 PM CSTHospital Encounter [facility] [address] [place] [address] Generalized anxiety disorder; Major depressive disorder, recurrent episode, moderate (HC)10/08/2025Travel 10/07/2025 8:57 AM ASSISTANT CLINICAL DIRECTOR - 10/07/2025 11:59 PM CSTHospital Encounter [facility] [address] [place] [address] Generalized anxiety disorder; Major depressive disorder, recurrent episode, moderate (HC)10/06/2025 8:59 AM ASSISTANT CLINICAL DIRECTOR - 10/06/2025 11:59 PM CSTHospital Encounter [facility] [address] [place] [address] Generalized anxiety disorder; Major depressive disorder, recurrent episode, moderate (HC)10/06/2025Telephone [facility] [address] [place] [address] Iris Victor, [facility] Care Coordination (Re-Engagement )10/06/20252261Kfrekn23/13/2025Telephone [facility] [address] [place] [address] Irina Hazel Day treatment group09/30/2025 8:50 AM ASSISTANT CLINICAL DIRECTOR - 09/30/2025 11:59 PM CSTHospital Encounter [address] [address] Generalized anxiety disorder; Major depressive disorder, recurrent episode, moderate (HC)09/29/2025 8:55 AM ASSISTANT CLINICAL DIRECTOR - 09/29/2025 11:59 PM CSTHospital Encounter [address] [address] Generalized anxiety disorder; Major depressive disorder, recurrent episode, moderate (HC)09/29/2025Travel 09/24/2025 9:00 AM ASSISTANT CLINICAL DIRECTOR - 09/24/2025 11:59 PM CSTHospital Encounter [facility] [address] [place] [address] Generalized anxiety disorder; Major depressive disorder, recurrent episode, moderate (HC)09/23/2025 8:56 AM ASSISTANT CLINICAL DIRECTOR - 09/23/2025 11:59 PM CSTHospital Encounter [address] [address] Generalized anxiety disorder; Major depressive disorder, recurrent episode, moderate (HC)09/23/2025Travel 09/22/2025Telephone [facility] [address] [place] [address] Irina Hazel Day treatment group09/17/2025 8:55 AM CDT - 09/17/2025 11:59 PM CDTHospital Encounter [facility] [address] [facility] [place] [address] Generalized anxiety disorder; Major depressive disorder, recurrent episode, moderate (HC)09/17/2025Travel 09/16/2025 8:55 AM CDT - 09/16/2025 11:59 PM CDTHospital Encounter [facility] [address] [place] [address] Generalized anxiety disorder; Major depressive disorder, recurrent episode, moderate (HC)09/15/2025 8:57 AM CDT - 09/15/2025 11:59 PM CDTHospital Encounter [facility] [address] [place] [address] Generalized anxiety disorder; Major depressive disorder, recurrent episode, moderate (HC)09/15/2025Travel 09/11/2025 10:30 AM CDTPhone Office Visit [facility] [address] [facility] [address] [place] [phone] Renita Pichardo PsyD, LP Qhljcrdwknxrh98/23/2025 8:58 AM CDT - 09/10/2025 11:59 PM CDTHospital Encounter [facility] [address] [place] [address] Generalized anxiety disorder; Major depressive disorder, recurrent episode, moderate (HC)09/09/2025 8:57 AM CDT - 09/09/2025 11:59 PM CDTHospital Encounter [facility] [address] [place] [address] Generalized anxiety disorder; Major depressive disorder, recurrent episode, moderate (HC)09/09/2025Travel 09/08/2025Telephone [facility] [address] [place] [address] vIy Garcia RN [facility] DT09/03/2025 8:54 AM CDT - 09/03/2025 11:59 PM CDTHospital Encounter [facility] [address] [place] [address] Generalized anxiety disorder; Major depressive disorder, recurrent episode, moderate (HC)09/03/2025Travel 09/02/2025 8:57 AM CDT - 09/02/2025 11:59 PM CDTHospital Encounter [facility] [address] [place] [address] Generalized anxiety disorder; Major depressive disorder, recurrent episode, moderate (HC)09/01/2025 9:00 AM CDT - 09/01/2025 11:59 PM CDTHospital Encounter [facility] [address] [place] [address] Generalized anxiety disorder; Major depressive disorder, recurrent episode, moderate (HC)09/01/2025Travel 08/27/2025 9:00 AM CDT - 08/27/2025 11:59 PM CDTHospital Encounter [facility] [address] [place] [address] Generalized anxiety disorder; Major depressive disorder, recurrent episode, moderate (HC)08/27/2025Telephone [facility] [address] [place] [address] Antonina Donovan [facility] DT08/27/20259459Zdlupu86/08/2025 9:00 AM CDT - 08/26/2025 11:59 PM CDTHospital Encounter [facility] [address] [place] [address] Generalized anxiety disorder; Major depressive disorder, recurrent episode, moderate (HC)08/25/2025 9:00 AM CDT - 08/25/2025 11:59 PM CDTHospital Encounter [facility] [address] [place] [address] Generalized anxiety disorder; Major depressive disorder, recurrent episode, moderate (HC)08/25/2025Travel 08/18/2025 11:20 AM CDTOffice Visit [facility] [address] [facility] [place] [address] Fercho Fragoso MD Nausea (Body aches, sob and chills x 1 week and fatigue )08/17/2025 12:26 PM CDT - 08/17/2025 11:59 PM CDTHospital Encounter [facility] [address] [place] [address] Adjustment disorder with anxious mood (Primary Dx); Generalized anxiety disorder; Major depressive disorder, recurrent episode, moderate (HC)08/17/2025Travel 08/14/20252684Prfszt37/25/2025Telephone [facility] [address] [place] [address] Pcp, No Appointment Oesfaijz97/24/2025Telephone [facility] [address] [place] [address] Renita Pichardo, Henna, LP Late Cancel Appointmentfrom Last 3 Months Immunizations ImmunizationAdministration DatesNext DueCOVID-19 vaccine (Moderna 100mcg/0.5mL) MD MISTYV101/11/2021Hepatitis B (Adult)03/07/2001,10/31/2000,09/19/2000Hepatitis B (Peds)02/19/2001,10/31/2000,09/19/2000Human Papilloma Virus Mmxqlxx3411/08/2007, 06/27/2007,04/26/2007Influenza Virus, Bodilbadqtz69/15/2012,08/14/2011, 10/19/2003,09/17/2002,01/22/2002Influenza, IIV3 (Age 6-35 mos)08/14/2011 Influenza, IIV3 (Age >=3 years)09/02/2012,08/14/2011,10/19/2003,09/17/2002, 01/22/2002Influenza, CPK920/06/20195301KUV1804/25/2001,03/07/2001Meningococcal Vaccine (Menactra)04/26/2007Td (Age >=7 Years)07/10/2003Tdap1 Family History Medical HistoryRelationNameCommentsCystic fibrosisBrotherHyperlipidemiaFather HypertensionFatherEndometriosisMaternal AuntCoronary artery diseaseMaternal GrandfatherDiabetesMaternal GrandfatherOtherMaternal Grandfathersubstance abuse dependenceCancer-breastMaternal GrandmotherObesityMaternal GrandmotherOther Maternal Grandmothersubstance abuse dependenceAnxiety disorderMotherDepression MotherEndometriosisMotherHyperlipidemiaMotherHypertensionMotherObesityMother EndometriosisOther 1maternal cousinsCancer-breastOther 2maternal great grandma Cancer-breastOther 3maternal cousinCancer-breastPaternal AuntDementiaPaternal TekdvgfjxyyCmurhgdgKtcnPymxsjXehgziweOxbjjzqNbshfm2QdlewlFypgmacm (Age 50) motorcycle accidentMaternal AuntMaternal GrandfatherDeceased (Age 81)Maternal GrandmotherDeceased (Age 63)BREAST CXMotherAliveOther 1Other 2Other 3Paternal AuntPaternal GrandfatherDeceasedPaternal GrandmotherAlive Social History Tobacco UseTypesPacks/DayYears UsedDateSmoking Tobacco: NeverSmokeless Tobacco: Never Tobacco Cessation:Counseling Given: Not Answered Alcohol UseStandard Drinks/WeekCommentsNo0 (1 standard drink = 0.6 oz pure alcohol)PHQ-2AnswerDate RecordedPHQ-2 TOTAL XGHXN501Social Connections AnswerDate RecordedFrequency of Communication with Friends and Jmwvfl309 Alcohol UseAnswerDate RecordedHow often do you have a drink containing alcohol?0 03/28/2022verage Number of DrinksNot on file03/28/2022Frequency of Binge DrinkingNot on file03/28/2022Financial Resource StrainAnswerDate Recorded Difficulty of Paying Living Htedstat087ifficulty of Paying Living Xwtaeyax253/26/2022Food InsecurityAnswerDate RecordedWorried About Running Out of Food in the Last Nvjn669Transportation NeedsAnswerDate RecordedLack of Transportation (Medical)Housing StabilityAnswerDate RecordedUnable to Pay for Housing in the Last Nuah563Interpersonal SafetyAnswerDate RecordedAre you being hit, kicked, pushed or yelled at (see row info)?No 11/21/2023Interpersonal Safety Abuse 12 - 18Not on file11/21/2023Interpersonal Safety Ambulatory VulnerabilityNot on file11/21/2023CommentsNoSex and Gender InformationValueDate RecordedSex Assigned at BirthNot on fileLegal Sex Rxigmo5812/02/2012 5:23 AM CSTGender IdentityNot on fileSexual OrientationNot on fileOccupationIndustryJob Start DateJob End DateK-martNot on fileNot on fileNot on file Obstetrics History GravidaParaTermPretermABIABSABEctopicMultipleLivingLive [id number] OutcomeGATotal LaborLabor/2nd/5pwXmshvyHtfFlnpIvxaZSFUnnU2J7HmbjWwbwGgyreesYynqq Comments:System Generated. Please review and update details.IAB Last Filed Vital Signs Vital SignReadingTime TakenCommentsBlood Cectyaip537/7809 11:44 AM CDT Tbjgt46124/30/2025 11:44 AM PKGRbpmfnyucvl29.8 ??C (98.2 ??F)08/18/2025 11:44 AM CDTRespiratory Yhhi299111/21/2023 9:09 AM CSTOxygen Rduolhriss66%08/18/2025 11:44 AM CDTInhaled Oxygen Concentration--Tezyva258.1 kg (234 lb)08/18/2025 11:44 AM ZDJJwaikr474.7 cm (5' 8)08/18/2025 11:44 AM CDTBody Mass Index35.58008/18/2025 11:44 AM CDT Plan of Treatment DateTypeDepartmentCare Team (Latest Contact Info)Acswcdqscvb60/26/2025 3:05 PM CSTOffice Visit [facility] [address] [facility] [address] Ermelinda Pierre MD [address] [place] [address] Health MaintenanceDue DateLast DoneCommentsPneumococcal series for age 6-49 (1 of 2 - PCV)02/03/2008Tetanus wspluqu98, 07/10/2003Pap test for age 21-65 (Verified in Care Everywhere or Patient Record), 11/25/2013, 03/03/2011, Additional history existsCOVID-19 vaccine series ( - 2024- season), 03/30/2021, 03/02/2021Influenza Vaccine (#1), 09/02/2012, 09/02/2012, Additional history existsBMI (ht and wt on same day) for age 18+, 06/23/2024, 02/15/2023, Additional history existsDepression screening for age 12+, 08/18/2025, 10/02/2024, Additional history existsHepatitis B series for 19+ Vpgamjnqa12/19/2001, 02/19/2001, 10/31/2000, Additional history existsHPV series for age 9-61Zndjfascb72/21/2007, 06/27/2007, 04/26/2007HIV for age 15-65 Fbourljeu44/07/2011Hepatitis C screening for age 18-78Sjxutefak04/14/2023 Procedures Procedure NamePriorityDate/TimeAssociated DiagnosisCommentsRED CELL MORPHOLOGY STAT08/18/2025 12:35 PM CDT Myalgia PLATELET QPAETNTWDWPW91/30/2025 12:35 PM CDT Myalgia MANUAL LPXSNUXBHIZZKQOR67/30/2025 12:35 PM CDT Myalgia CBC WITH AUTO ENWUSHXWNHMHOYUS28/30/2025 12:35 PM CDT Myalgia C-REACTIVE ZKWJYLVJBFR81/30/2025 12:35 PM CDT Myalgia CBC WITH AUTO PNBCIUWQMPOQBEUF00/30/2025 12:35 PM CDT Myalgia IGAOcklmcz42/30/2025 12:35 PM CDT Myalgia ANTI ZVAYojpuzx30/14/2023 1:57 PM CDT Need for hepatitis C screening test DIRECTOR OF QUALITY IMPROVEMENT THIN PREP PAP SCREEN BZJUZNHlmkjtn51/07/2014 11:15 AM ASSISTANT CLINICAL DIRECTOR Screening for malignant neoplasm of the cervix ANTI HIV 1/3Tjkgloq74/07/2011 5:05 PM ASSISTANT CLINICAL DIRECTOR Supervision of normal first (HC) from Last 3 Months or Most Recently Relevant to Health Maintenance Results * (ABNORMAL) CBC WITH AUTO DIFFERENTIAL (08/18/2025 12:35 PM CDT)ComponentValue Ref RangeTest MethodAnalysis TimePerformed AtPathologist SignatureWHITE BLOOD COUNT3.5(L)4.5 - 11.0 thou/cu mm08/18/2025 2:12 PM [facility] LABORATORYRED BLOOD COUNT4.344.00 - 5.20 mil/cu mm08/18/2025 2:12 PM CDT [facility] AHODAWIGIKGUVOROKUGT36.7(L)12.0 - 16.0 g/dL08/18/2025 2:12 PM [facility] ZMCCYIWZYXLTDPRRCSBC77.033.0 - 51.0 % 08/18/2025 2:12 PM [facility] XUCBNJTXKXRFB5132 - 100 fL 08/18/2025 2:12 PM [facility] LAVYZHNLTNHMB64.026.0 - 34.0 pg 08/18/2025 2:12 PM [facility] SQPZBBOIZAFHPP96.532.0 - 36.0 g/dL08/18/2025 2:12 PM [facility] AEVCTCUSYOLWI34.911.5 - 15.5 %08/18/2025 2:12 PM [facility] LABORATORYPLATELET COUNT 553057 - 440 thou/cu mm08/18/2025 2:12 PM [facility] LABORATORYMPV8.26.5 - 11.0 IN08/18/2025 2:12 PM [facility] LABORATORYSpecimen (Source)Anatomical Location / LateralityCollection Method / VolumeCollection TimeReceived TimeBloodBLOOD SPECIMEN / UnknownQuest Collect / Djllvhh3408/18/2025 12:35 PM CDT08/18/2025 12:35 PM CDT Narrative Authorizing ProviderResult TypeResult StatusRajatorrajat Fragoso MDHEMATOLOGY Final ResultPerforming OrganizationAddressCity/State/ZIP CodePhone Number [facility] [address] [place] [address] * (ABNORMAL) RED CELL MORPHOLOGY (08/18/2025 12:35 PM CDT)ComponentValueRef RangeTest MethodAnalysis TimePerformed AtPathologist SignatureELLIPTOCYTESFew 08/18/2025 2:11 PM [facility] LABORATORYPOLYCHROMASIASlight 08/18/2025 2:11 PM [facility] LABORATORYRBC COMMENTPresent(A) RBC morphology appears normal, RBC morphology within normal limits for newborns.08/18/2025 2:11 PM [facility] LABORATORYSpecimen (Source)Anatomical Location / LateralityCollection Method / VolumeCollection TimeReceived TimeBloodBLOOD SPECIMEN / UnknownQuest Collect / Unknown 08/18/2025 12:35 PM CDT08/18/2025 12:35 PM CDT Narrative Authorizing ProviderResult TypeResult StatusFercho Fragoso MDHEMATOLOGY Final ResultPerforming OrganizationAddressCity/State/ZIP CodePhone Number [facility] [address] [place] [address] * PLATELET ESTIMATE (08/18/2025 12:35 PM CDT)ComponentValueRef RangeTest Method Analysis TimePerformed AtPathologist SignaturePLATELET ESTIMATEAdequate Adequate, No qoqcymvu74/30/2025 2:11 PM [facility] Specimen (Source)Anatomical Location / LateralityCollection Method / Volume Collection TimeReceived TimeBloodBLOOD SPECIMEN / UnknownQuest Collect / Kszacen0108/18/2025 12:35 PM CDT08/18/2025 12:35 PM CDT Narrative Authorizing ProviderResult TypeResult StatusGeorge Néstor Fragoso MDHEMATOLOGY Final ResultPerforming OrganizationAddressCity/State/ZIP CodePhone Number [facility] [address] [place] [address] * (ABNORMAL) MANUAL DIFFERENTIAL (08/18/2025 12:35 PM CDT)ComponentValueRef RangeTest MethodAnalysis TimePerformed AtPathologist Signature% NEUTROPHILS 66.0%08/18/2025 2:11 PM [facility]% LYMPHOCYTES 21.0%08/18/2025 2:11 PM [facility]% MONOCYTES5.0% 08/18/2025 2:11 PM [facility]% EOSINOPHILS5.0% 08/18/2025 2:11 PM [facility]% BASOPHILS1.0% 08/18/2025 2:11 PM [facility]% METAMYELOCYTES2.0 (H)<0.1 %08/18/2025 2:11 PM [facility] LABORATORYNEUTROPHILS ABSOLUTE2.31.7 - 7.0 thou/cu mm08/18/2025 2:11 PM [facility] LABORATORYLYMPHOCYTES ABSOLUTE0.7(L)0.9 - 2.9 thou/cu mm08/18/2025 2:11 PM CDT [facility] LABORATORYMONOCYTES ABSOLUTE0.2<0.9 thou/cu mm 08/18/2025 2:11 PM [facility] LABORATORYEOSINOPHILS ABSOLUTE 0.2<0.5 thou/cu mm08/18/2025 2:11 PM [facility] BASOPHILS ABSOLUTE0.0<0.3 thou/cu mm08/18/2025 2:11 PM [facility] LABORATORYABSOLUTE METAMYELOCYTES0.1(H)<=0.0 thou/cu mm08/18/2025 2:11 PM [facility] LABORATORYSpecimen (Source)Anatomical Location / LateralityCollection Method / VolumeCollection TimeReceived TimeBloodBLOOD SPECIMEN / UnknownQuest Collect / Bfcqpae1708/18/2025 12:35 PM CDT08/18/2025 12:35 PM CDT Narrative Authorizing ProviderResult TypeResult StatusFercho Fragoso MDHEMATOLOGY Final ResultPerforming OrganizationAddressCity/State/ZIP CodePhone Number [facility] [address] [place] [address] * TSH (08/18/2025 12:35 PM CDT)ComponentValueRef RangeTest [...] CDT Narrative Authorizing ProviderResult TypeResult StatusFercho Fragoso MDCHEMISTRY Final ResultPerforming OrganizationAddressCity/State/ZIP CodePhone Number [facility] [address] [phone], * C-REACTIVE PROTEIN (08/18/2025 12:35 PM CDT)ComponentValueRef RangeTest Method Analysis TimePerformed AtPathologist SignatureC-REACTIVE PROTEIN<0.3<0.5 mg/dL 08/18/2025 1:29 PM [facility]TFED[facility] LABORATORYSpecimen (Source) Anatomical Location / LateralityCollection Method / VolumeCollection Time Received TimeBloodBLOOD SPECIMEN / UnknownQuest Collect / Jwtbifs8408/18/2025 12:35 PM CDT08/18/2025 12:35 PM CDT Narrative Authorizing ProviderResult TypeResult StatusGeorge Néstor Fragoso MDCHEMISTRY Final ResultPerforming OrganizationAddressCity/State/ZIP CodePhone Number [facility] [address] [place] [address] * ANTI HCV (08/02/2023 1:57 PM CDT)ComponentValueRef RangeTest MethodAnalysis TimePerformed AtPathologist SignatureHEPATITIS C ANTIBODYNon-Reactive Non-Lruqubyj09/15/2023 3:36 PM CDTUNSHRINERS CHILDREN'S TWIN CITIES LABORATORYComment:Please note, per www.CDC.gov: If a patient is known to be at high risk of HCV infection, or is symptomatic, and the physician's suspicion of HCV infection is high, HCV RNA testing is often employed and is of diagnostic value, even after an initial negative anti-HCV test result.Specimen (Source)Anatomical Location / LateralityCollection Method / VolumeCollection TimeReceived Time BloodBLOOD SPECIMEN / UnknownVenipuncture / Whoqwvd7408/02/2023 1:57 PM CDT 08/02/2023 1:57 PM CDT Narrative Authorizing ProviderResult TypeResult StatusMacnaomy Vasquez PASEND OUTS Final ResultPerforming OrganizationAddressCity/State/ZIP CodePhone Number [facility] [place]END[place] [address] [address] [place] [address] * DIRECTOR OF QUALITY IMPROVEMENT THIN PREP PAP SCREEN IMAGED (11/25/2013 11:15 AM ASSISTANT CLINICAL DIRECTOR)ComponentValueRef RangeTest MethodAnalysis TimePerformed AtPathologist SignatureCYTOLOGY CYTOPATHOLOGY REPORT [facility] Status: Final Status ?[id number] CLINICAL INFORMATION Last Date of LMP ? :11/17/13 Last Pap Date ?:03/03/2011 Last Pap Result ?:NIL ABN [place]/Bx Past 5 YRS :None Hormone Usage ?:BCP/OCP/Patch/Ring Menstrual Status ? :Regular Periods [place]/Bx done today ? :No Additional Information :None [...] lesions. COLLECTED:11/25/13 ? ACCESSIONED: ??11/26/13 ?? SIGNED: ??12/02/13ABHUTCHIN[facility] CODENILABBOCOMMUNITY MEMORIAL HOSPITALpecimen (Source)Anatomical Location / LateralityCollection Method / VolumeCollection TimeReceived TimeTissue specimen (specimen) (Cervical/Vaginal)11/25/2013 11:15 AM CST11/25/2013 11:12 AM ASSISTANT CLINICAL DIRECTOR Narrative Authorizing ProviderResult TypeResult StatusCecile Franchseca TetzloffPATHOLOGY/CYTOLOGY Final ResultPerforming OrganizationAddressCity/State/ZIP CodePhone Number [facility] [place]NAL ZIP [phone] [place] [phone] * ANTI HIV 1/2 (12/26/2010 5:05 PM ASSISTANT CLINICAL DIRECTOR)ComponentValueRef RangeTest Method Analysis TimePerformed AtPathologist SignatureANTI HIV 1/2Non-reactiveABBOTT PROVIDENCE MOUNT CARMEL HOSPITALpecimen (Source)Anatomical Location / Laterality Collection Method / VolumeCollection TimeReceived TimeBlood specimen (specimen)BLOOD SPECIMEN / Ttkftaf6312/26/2010 5:05 PM CST12/26/2010 4:55 PM ASSISTANT CLINICAL DIRECTOR Narrative Authorizing ProviderResult TypeResult StatusAmy Marisa Nathan NPSEND OUTSFinal Result Performing OrganizationAddressCity/State/ZIP CodePhone Number [facility] [place]NAL ZIP [address] [address] from Last 3 Months or Most Recently Relevant to Health Maintenance Insurance * Guarantor: Natalya Martinez TypeRelation to PatientDate of BirthPhone Billing AddressPersonal/EypsqmLqcaxd99/18/[phone] [address] * Guarantor: MANNY NINA PXAccount TypeRelation to PatientDate of PhoneBilling AddressOcc Health/ZoraPgvgxhgp00/01/2001 [phone] (Home) ATTN: FRANK WHITE [address] [address] Care Teams Team MemberRelationshipSpecialtyStart DateEnd Date Ermelinda Pierre MD [address] [place] [address] PCP - GeneralFamily Practice06/23/24 Antoinette Palacio, PhD, LP PsychologistPsychology04/24/12 Gracia Rock, BRYAN [address] [place], [place] [address] Consulting PhysicianClinical Nurse Specialist07/07/22 Jesika Watt, KATRIN [address] [place] [address] Registered DietitianRegistered Dietician07/07/22 Staff, Other Clinical . [facility] [facility]07/03/22
[2025-11-04 12:52] VITALS: BP 167/143; PULSE 109; RESP 19; TEMP 36.2; O2SAT 97; BMI 35.7
[2025-11-04 13:21] LABS: Hematocrit* 41.5 % (33.0-51.0); Hemoglobin* 13.3 gm/dL (12.0-16.0); Immature Granulocytes Pct Auto 0.7 %; Mean Corpuscular HGB Conc 32 gm/dL (32-36); Mean Corpuscular Hemoglobin 28 pg (26-34); Mean Corpuscular Volume 86 fL (80-100); RDW Coefficient of Variation % 13.3 % (11.5-15.5); Red Blood Count* 4.84 m/uL (4.00-5.20); White Blood Count* 4.04 K/uL (4.50-11.00)
[2025-11-04 13:24] LABS: Immature Granulocytes Abs Auto 0.00 K/uL (0.00-0.30); Lymphocytes Absolute Auto 1.00 K/uL (0.90-2.90)
[2025-11-04 13:25] LABS: Slide Review Reflex No
[2025-11-04 13:34] LABS: Albumin* 4.7 g/dL (3.3-5.0); Chloride* 103 mmol/L (96-114); Sodium* 135 mmol/L (135-149)
[2025-11-04 13:35] LABS: Potassium* 4.1 mmol/L (3.6-5.1)
[2025-11-04 13:37] LABS: Blood Urea Nitrogen* 15 mg/dL (5-24); Creatinine* 0.7 mg/dL (0.5-1.5); Est. Creatinine Clearance* 112.08; Estimated Glomerular Filt Rate 115 ml/min
[2025-11-04 13:38] LABS: Alanine Aminotransferase* 68 U/L (4-35); Alkaline Phosphatase* 92 U/L (40-150); Anion Gap 8 mEq/L (7-15); Aspartate Amino Transferase* 55 U/L (12-35); Bilirubin Direct* 0.3 mg/dL (0.0-0.5); Bilirubin Total* 0.4 mg/dL (0.1-1.5); Calcium* 9.2 mg/dL (8.4-10.6); Carbon Dioxide* 24 mmol/L (20-32); Glucose* 168 mg/dL (60-115); Total Protein* 8.1 g/dL (6.0-8.3)
[2025-11-04 13:48] LABS: PCR FLU A Negative PCR FLU A (Negative); PCR FLU B Negative PCR FLU B (Negative); PCR RSV Negative PCR RSV (Negative); SARS PCR* Negative SARS-CoV-2 (Negative)
--- NOTE | 2025-11-04 14:27 | ED.GENADULT ---
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 She has had multiple tests including visits to [facility] recently where she had a CT scan of her abdomen as well as a ultrasound of her pelvis to ensure that she had no ovarian torsion or other pathology. There was no findings on by her report. She works with the bone marrow team at [facility] and they requested that she go to an ER as they could be seen today. They wanted some blood work done. She describes basically more just diffuse abdominal pain but she has had a ultrasound in couple of and a CT scan recently as mention within the last week. She was seen here multiple times in the ER. She had a diagnosis of UTI at [facility] and was given antibiotic. She did not have any dysuria. She has had no chills, fever, anterior chest pain, breathing problem. Her main complaint to me is that she has abdominal discomfort that is occasionally on the left side occasion on the right side of her lower abdomen. Because of the ER volume the patient had weight in a triage area and an EKG was done that shows sinus tachycardia 111 beats per minute she has no obvious ischemic changes, some artifact. This is by my read. Patient also had labs done that show negative high sensitivity activity troponin, white count of 4000, hemoglobin 13.3 ER profile unremarkable glucose of 168, AST and ALT are minimally elevated CRP less than 0.5, viral studies negative. Related Data Home Medications ?Medication ?Instructions ?Recorded ?Confirmed duloxetine 60 mg capsule,delayed 60 mg PO BID 08/06/22 10/27/25 release acyclovir 400 mg tablet 400 mg PO BID 05/31/25 10/27/25 aripiprazole 10 mg tablet 10 mg PO DAILY 05/31/25 10/27/25 buprenorphine 5 mcg/hour weekly 1 patch topical Q7D chronic pain 05/31/25 09/30/25 transdermal patch pantoprazole 40 mg tablet,delayed 40 mg PO BID 05/31/25 10/27/25 release penicillin V potassium 500 mg 500 mg PO BID 05/31/25 10/27/25 tablet posaconazole 100 mg tablet,delayed 100 mg PO TID 05/31/25 10/27/25 release cyclobenzaprine 5 mg tablet mg PO 07/19/25 09/30/25 Held on 08/21/25. Instructions: out hydromorphone 2 mg tablet PO 07/19/25 09/30/25 hydroxyzine HCl 25 mg tablet mg PO 07/19/25 09/30/25 prochlorperazine maleate 10 mg 10 mg PO Q6H PRN 07/19/25 09/30/25 tablet sulfamethoxazole 400 1 tab PO QDAY 09/30/25 10/27/25 mg-trimethoprim 80 mg tablet (Bactrim) Previous Rx's ?Medication ?Instructions ?Recorded cyclobenzaprine 10 mg tablet 10 mg PO HS PRN insomnia #14 tabs 07/02/25 Held on 08/21/25. Instructions: out hydroxyzine pamoate 25 mg capsule 25 mg PO TID PRN Pain medication 07/02/25 enhancement #30 caps hydromorphone 2 mg tablet 2 mg PO Q6H PRN pain #20 tabs 11/04/25 (Dilaudid) Allergies Allergy/AdvReac Type Severity Reaction Status Date / Time grapefruit Allergy Intermediate other Verified 10/27/25 15:02 amoxicillin Allergy Mild other Verified 10/27/25 15:02 bupropion (From Wellbutrin) Allergy Mild Hives Verified 10/27/25 15:02 Review of Systems Status of ROS: Reports: 6 or more systems reviewed and unremarkable except as noted in History and below [facility] Medical History Closed fracture of radius ?S52.90XA - Unspecified fracture of unspecified forearm, initial encounter for closed fracture (ICD-10) Depression ?F32.A - Depression, unspecified (ICD-10) Violation of controlled substance agreement ?Z91.148 - Patient's other noncompliance with medication regimen for other reason (ICD-10) Obesity ?E66.9 - Obesity, unspecified (ICD-10) Disorder of eye movements ?H51.9 - Unspecified disorder of binocular movement (ICD-10) Sciatica ?M54.30 - Sciatica, unspecified side (ICD-10) Neuropathy ?G62.9 - Polyneuropathy, unspecified (ICD-10) Migraines ?G43.909 - Migraine, unspecified, not intractable, without status migrainosus (ICD-10) Irritable bowel ?K58.9 - Irritable bowel syndrome, unspecified (ICD-10) Fibromyalgia ?M79.7 - Fibromyalgia (ICD-10) Anxiety ?F41.9 - Anxiety disorder, unspecified (ICD-10) Chronic myeloid leukemia (CML), BCR/ABL1-positive, in remission ?C92.11 - Chronic myeloid leukemia, BCR/ABL-positive, in remission (ICD-10) Surgical History History of eye surgery ?Z98.890 - Other specified postprocedural states (ICD-10) History of dilation and curettage ?Z98.890 - Other specified postprocedural states (ICD-10) History of bone marrow biopsy ?Z98.890 - Other specified postprocedural states (ICD-10) Social History Smoking Status: Never smoker Do you use any of these nicotine containing products: None Second hand tobacco smoke exposure: No How often do you have a drink containing alcohol: never How often do you have six or more drinks on one occasion: Never AUDIT-C Alcohol total score: 0 Non-prescribed substance use: denies use service: No Exam Narrative: Exam Narrative: Objective in general patient apparent distress she is tearful however describing her situation no facial asymmetry neck is supple pulse regular abdomen benign soft nontender no masses or rebound , extremities are no edema, neurologic nonfocal Const: Vital Signs, click to edit/add: Vital Signs - 24 hr 11/04/25 12:52 Temperature 97.1 F L Pulse Rate [Pulse Oximeter] 109 H Respiratory Rate 19 Blood Pressure [Ri ght Upper Arm] 167/143 H Pulse Oximetry 97 Oxygen Delivery Me thod Room Air Course Vital Signs Vital signs: Initial Vital Signs Temperature 97.1 F L 11/04/25 12:52 Temperature Source Temporal Artery Scan 11/04/25 12:52 Pulse Rate 109 H 11/04/25 12:52 Respiratory Rate 19 11/04/25 12:52 Blood Pressure 167/143 H 11/04/25 12:52 Blood Pressure Mean 151 H 11/04/25 12:52 Blood Pressure Position Sitting 12/17/25 12:52 Pulse Oximetry 97 11/04/25 12:52 Oxygen Delivery Method Room Air 11/04/25 12:52 Vital Signs Temperature 97.1 F L 11/04/25 12:52 Pulse Rate 109 H 11/04/25 12:52 Respiratory Rate 19 11/04/25 12:52 Blood Pressure 167/143 H 11/04/25 12:52 Pulse Oximetry 97 11/04/25 12:52 Oxygen Delivery Method Room Air 11/04/25 12:52 Temperature 97.1 F L 11/04/25 12:52 Pulse Rate 109 H 11/04/25 12:52 Respiratory Rate 19 11/04/25 12:52 Blood Pressure 167/143 H 11/04/25 12:52 Pulse Oximetry 97 11/04/25 12:52 Oxygen Delivery Method Room Air 11/04/25 12:52 Medical Decision Making MDM Narrative Medical decision making narrative: 35-year-old female with lower abdominal discomfort. Status post negative CT scan, negative pelvic ultrasound. Negative lab workup. At this point she has been on pain medication will refill that for few days, and she will contact her bone marrow transplant team and discuss next measures such as follow-up CT scan as was planned and for some reason they could not get that done at [place] so I do not think there is a need to repeat that here. She was relieved by the situation. She reports she is out of dilaudid currently and will refill that as mention for couple of days. Return if problems or concerns. Continue home medications. Lab Data Labs: Lab Results 11/04/25 11/04/25 11/04/25 Range/Units 12:55 12:59 13:13 WBC 4.04 L (4.50-11.00) K/uL RBC 4.84 (4.00-5.20) m/uL Hgb 13.3 (12.0-16.0) gm/dL Hct 41.5 (33.0-51.0) % MCV 86 (80-100) fL MCH 28 (26-34) pg MCHC 32 (32-36) gm/dL RDW Coeff of [place] 13.3 (11.5-15.5) % Plt Count 232 (140-440) K/uL Neut % (Auto) 63.2 (42.0-72.0) % Lymph % (Auto) 24.5 (20-44) % [place] % (Auto) 5.2 (0.0-11.0) % Eos % (Auto) 5.9 (0.0-7.0) % Baso % (Auto) 0.5 (0.0-3.0) % Neut # (Auto) 2.60 (1.7-7.0) K/uL Lymph # (Auto) 1.00 (0.90-2.90) K/uL [place] # (Auto) 0.20 (0.00-0.90) K/UL Eos # (Auto) 0.20 (0.00-0.50) K/uL Baso # (Auto) 0.00 (0.00-0.30) K/uL Abs Immat Gran (auto) 0.00 (0.00-0.30) K/uL Imm/Tot Granulo (auto) 0.7 % Sodium 135 (135-149) mmol/L Potassium 4.1 (3.6-5.1) mmol/L Chloride 103 (96-114) mmol/L Carbon Dioxide 24 (20-32) mmol/L Anion Gap 8 (7-15) mEq/L BUN 15 (5-24) mg/dL Creatinine 0.7 (0.5-1.5) mg/dL Estimated Creat Clear 112.08 Estimated GFR 115 ml/min Glucose 168 H (60-115) mg/dL Calcium 9.2 (8.4-10.6) mg/dL Total Bilirubin 0.4 (0.1-1.5) mg/dL Direct Bilirubin 0.3 (0.0-0.5) mg/dL AST 55 H (12-35) U/L ALT 68 H (4-35) U/L Alkaline Phosphatase 92 (40-150) U/L POC Troponin I High Sensi < 2.9 L (2.9-13.0) pg/mL C-Reactive Protein < 0.5 L (0.5-1.0) mg/dL Total Protein 8.1 (6.0-8.3) g/dL Albumin 4.7 (3.3-5.0) g/dL SARS-CoV-2 (PCR) Negative SARS-CoV-2 (Negative) Influenza Type A (PCR) Negative PCR FLU A (Negative) Influenza Type B (PCR) Negative PCR FLU B (Negative) RSV (PCR) Negative PCR RSV (Negative) Discharge Plan Discharge Clinical Impression: Chronic abdominal pain, H/O bone marrow transplant Patient Disposition: Home w/ Parent or Adult Condition: Stable Additional Instructions: Please send copy of her labs with her so she can send them to the bone marrow team at [facility]. Med faxed in, would reconnect with the [facility] team regarding a follow-up CT scan at their convenience. Activity Level: Light activity Discharge Diet: Regular Prescriptions: New hydromorphone [Dilaudid] 2 mg tablet 2 mg PO Q6H PRN (Reason: pain) Qty: 20 0RF No Action sulfamethoxazole-trimethoprim [Bactrim] 400-80 mg tablet 1 tab PO QDAY duloxetine 60 mg capsule,delayed release(DR/EC) 60 mg PO BID acyclovir 400 mg tablet 400 mg PO BID aripiprazole 10 mg tablet 10 mg PO DAILY buprenorphine 5 mcg/hour patch weekly 1 patch topical Q7D penicillin V potassium 500 mg tablet 500 mg PO BID pantoprazole 40 mg tablet,delayed release (DR/EC) 40 mg PO BID posaconazole 100 mg tablet,delayed release (DR/EC) 100 mg PO TID hydromorphone 2 mg tablet PO hydroxyzine HCl 25 mg tablet PO cyclobenzaprine 5 mg tablet PO prochlorperazine maleate 10 mg tablet 10 mg PO Q6H PRN hydroxyzine pamoate 25 mg capsule 25 mg PO TID PRN (Reason: Pain medication enhancement) Qty: 30 1RF cyclobenzaprine 10 mg tablet 10 mg PO HS PRN (Reason: insomnia) Qty: 14 0RF Follow Up/Referrals: Anny Matthews NP [Primary Care Provider, Family Practice] Stand Alone Forms: [employer] Info Instructions
== END 2025-11-04 14:31 | disposition home or self-care (01) ==
PROVIDERS: Emergency Provider Family Medicine; PCP Registered Nurse
DX: R10.9 Unspecified abdominal pain (principal); G89.29 Other chronic pain; R07.89 Other chest pain; R51.9 Headache, unspecified; Z94.81 Bone marrow transplant status
CPT/HCPCS: 36415; 80048; 80076; 81001; 84484; 85025; 86140; 87631; 93005; 99283; 99285

== ENCOUNTER 2025-11-05 02:24 | Emergency (ER) | payer MEDICARE, BC, SELFPAY ==
--- OUTSIDE RECORDS SUMMARY | 2025-09-30 08:41 | XMS_ITS | Encounter Summary ---
[facility] Address [address] [place] [address] Care Team Providers Care Step Finisher Name Role Phone Renzo Andres M.D. Primary Care Provider Encounter Details DateTypeDepartmentCare Team (Latest Contact Info)Gdydvnhytbg46/12/2025 8:41 AM CUSTOMER LOYALTY REPRESENTATIVE - 09/30/2025 11:59 PM CSTHospital Encounter Department of Laboratory Medicine in [place], [place] [address] [place] [phone] Jessica Rousseau M.B.B.S. [address] [place] [phone] Leukemia Myeloid Chronic BCR/ABL Positive Not Having [...] before you got the money to buymore.Patient zliijfmo15/25/2025Within the past 12 months, the food you bought just didn't last and you didn't have money to get more.Patient /25/2025PRAPARE - TransportationAnswerDate RecordedIn the past 12 months, has lack of transportation kept you from medical appointments or from getting medications?No08/13/2025In the past 12 months, has lack of transportation kept you from meetings, work, or from getting things needed for daily living?No08/13/2025HC UtilitiesAnswerDate RecordedIn the past 12 months has the [employer], gas, oil, or water fanatix threatened to shut off services in your home?Patient dzblosbt16/25/2025Postpartum DepressionAnswerDate RecordedPHQ- 9 Total Score (max 27)12007/08/2025Housing StabilityAnswerDate RecordedWhat is your living situation today?I have a steady place to live08/13/2025Education AnswerDate RecordedWhat is the highest level of school you have completed or the highest degree you have received?Some college, no wlngas5804/24/2019 CommentsNoSex and Gender InformationValueDate RecordedSex Assigned at Sqfmpg4412/26/2018 8:37 PM CSTLegal GnrZudzbq75/02/2017 2:43 PM CSTGender Identity Kerpan3312/26/2018 8:37 PM CSTSexual OrientationChoose not to avmcbqha43/17/2021 3:46 PM CDTdocumented as of this encounter Medications at Time of Discharge MedicationSigDispense QuantityRefillsLast FilledStart DateEnd Date ARIPiprazole (Abilify) 10 mg tablet Take 1 [...] 2 (two) times a day. 60 tablet acyclovir (Zovirax) 400 mg tablet 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),Transplant Bone Marrow Allogeneic (HCC)Take 1 tablet (400 mg total) by mouth 2 (two) times a day. 180 tablet alum-mag hydroxide-simeth (Maalox) 200-200-20 mg/5 mL [...] hours as needed for anxiety. 60 tablet 09/02/483649/10/2025 naloxone (Narcan) 4 mg/actuation nasal spray Administer 1 spray (4 mg total) into nostril(s) once for 1 dose. Use 1 spray in 1 nostril. Repeat with second device in other nostril after 2-3 minutes if no or minimal response. 2 each /10/2025 OLANZapine (ZyPREXA) 5 mg tablet Take 1 [...] a day before morning and evening meals. posaconazole (NoxafiL) [address] tablet 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),Transplant Bone Marrow Allogeneic (HCC)Take 3 tablets (300 mg total) by mouth daily. 90 tablet / prochlorperazine (Compazine) 10 mg tablet Take 1 tablet (10 mg total) by mouth every 6 (six) hours as needed for nausea. 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 60 tablet documented as of this encounter Plan of Treatment DateTypeDepartmentCare Team (Latest Contact Info)Cdcbvbmvgru91/29/2025 9:00 AM CSTOffice Visit Department of Obstetrics and Gynecology in [place], [place] 200 [place] [address] Alice Linares M.D. 200 [place] [address] 11/17/2025 11:00 AM CSTTelemedicine Department of Palliative Care in [place], [place] [address] [place] [phone] Yary Landa D.O. [address] [place] [phone] 12/04/2025 1:30 PM CSTClinical Communication Virtual Review in [place], [place] [address] [place] [phone] 12/07/2025 8:10 AM CSTLab Department of Laboratory Medicine and Pathology, [facility] in [place], [place] [address] [place] [phone] Jessica Rousseau M.B.B.S. [address] [place] [phone] 12/07/2025 9:15 AM CSTAppointment Outpatient Procedure Center in [place], [place] [address] [place] [phone] Jessica Rousseau M.B.B.S. [address] [place] [phone] 12/07/2025 11:00 AM CSTDiagnostic Division of Pulmonary Medicine in [place], [place] [address] [place] [phone] Jessica Rousseau M.B.B.S. [address] [place] [phone] 12/07/2025 1:00 PM CSTOffice Visit [facility] in [place], [place] [address] [place] [phone] Jessica Rousseau M.B.B.S. [address] [place] [phone] 12/07/2025 1:30 PM CSTNurse Only [facility] Trans[facility] and Clinical Regeneration in [place], [place] [address] [place] [phone] Jessica Rousseau M.B.B.S. [address] [place] [phone] 12/07/2025 2:00 PM CSTOffice Visit [facility] Transplantation and Clinical Regeneration in [place], [place] [address] [place] [phone] Jessica Rousseau M.B.B.S. [address] [place] [phone] 12/07/2025 3:00 PM CSTOffice Visit Department of Palliative Care in [place], [place] [address] [place] [phone] Martine Pardo B.M.B.S., BGordon, B.Ch. 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) Transplant Stem Cell (HCC) GLUCOSE, FASTING, S/VAxqrvyb82/12/2025 8:49 AM CUSTOMER LOYALTY REPRESENTATIVE 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) Transplant Stem Cell (HCC) Abnormal Finding Of Blood Chemistry Unspecified COMPREHENSIVE METABOLIC PANEL, S/TDxggmbs50/12/2025 8:49 AM CUSTOMER LOYALTY REPRESENTATIVE Leukemia Myeloid Chronic BCR/ABL Positive Not Having Achieved Remission (HCC) Transplant Stem Cell (HCC) documented in this encounter Results * Magnesium (09/30/2025 8:49 AM CUSTOMER LOYALTY REPRESENTATIVE)ComponentValueRef RangeTest MethodAnalysis TimePerformed AtPathologist SignatureMagnesium, P1.91.7 - 2.3 mg/dL09/30/2025 12:20 PM CSTOWATSpecimen (Source)Anatomical Location / LateralityCollection Method / VolumeCollection TimeReceived TimeBlood (Blood, Venous)09/30/2025 8:49 AM CST09/30/2025 10:35 AM CUSTOMER LOYALTY REPRESENTATIVE Narrative Authorizing ProviderResult TypeResult StatusJessica Rousseau M.B.B.S.LAB BLOOD ADD-ONFinal ResultPerforming OrganizationAddressCity/State/ZIP CodePhone Number [facility] [address] [place] [address], [facility] in [place] [address] [place] [address] * (ABNORMAL) Glucose, Fasting (09/30/2025 8:49 AM CUSTOMER LOYALTY REPRESENTATIVE)ComponentValueRef Range Test MethodAnalysis TimePerformed AtPathologist SignatureGlucose, P146(H)70 - 100 mg/dL09/30/2025 11:45 AM CSTOWATLast Nzxsee0fy21/12/2025 10:35 AM CSTOWAT Specimen (Source)Anatomical Location / LateralityCollection Method / Volume Collection TimeReceived TimeBlood (Blood, Venous)09/30/2025 8:49 AM CUSTOMER LOYALTY REPRESENTATIVE 09/30/2025 10:33 AM CUSTOMER LOYALTY REPRESENTATIVE Narrative Authorizing ProviderResult TypeResult StatusAaherb Rousseau M.B.B.S.LAB BLOOD NON ADD-ONFinal ResultPerforming OrganizationAddressCity/State/ZIP CodePhone Number [facility] [address] [address], [facility] in [place] [address] [place] [address] * (ABNORMAL) Comprehensive Metabolic Panel (09/30/2025 8:49 AM CUSTOMER LOYALTY REPRESENTATIVE)Component ValueRef RangeTest MethodAnalysis TimePerformed AtPathologist Signature Potassium, P4.33.6 - 5.2 mmol/L11/10/2025 12:20 PM CSTOWATSodium, J014367 - 145 mmol/L111/30/2024 12:20 PM CSTOWATChloride, X69129 - 107 mmol/L111/30/2024 12:20 PM CSTOWATBicarbonate, P21(L)22 - 29 mmol/L111/30/2024 12:20 PM CSTOWAT Anion Gap, P137 - 15111/30/2024 12:20 PM CSTOWATBUN (Blood Urea Nitrogen), P66 - 21 mg/dL09/30/2025 12:20 PM CSTOWATCreatinine0.630.59 - 1.04 mg/dL09/30/2025 12:20 PM CSTOWATEstimated GFR (eGFR)>90>=60 mL/min/BSA09/30/2025 12:20 PM CUSTOMER LOYALTY REPRESENTATIVE OWATComment: Estimated GFR calculated using the 2020 [...] (Blood, Venous)09/30/2025 8:49 AM CST09/30/2025 10:35 AM CUSTOMER LOYALTY REPRESENTATIVE Narrative Authorizing ProviderResult TypeResult StatusAaherb BarnesLAB BLOOD ADD-ONFinal ResultPerforming OrganizationAddressCity/State/ZIP CodePhone Number [facility] [address] [place] [address], [place] OWAT [facility] in [place] [address] [place] [address] * (ABNORMAL) CBC with Differential, Blood (09/30/2025 8:49 AM CUSTOMER LOYALTY REPRESENTATIVE)ComponentValue Ref RangeTest MethodAnalysis TimePerformed AtPathologist SignatureHemoglobin 12.511.6 - 15.0 g/dL09/30/2025 10:46 AM BENTHIGEienohtemz56.535.5 - 44.9 % 09/30/2025 10:46 AM CSTOWATErythrocytes4.663.92 - 5.13 x10(12)/L111/30/2024 10:46 AM IUGPYCJFLH15.678.2 - 97.9 fL09/30/2025 10:46 AM CSTOWATRBC Distrib Width13.312.2 - 16.1 %09/30/2025 10:46 AM CSTOWATPlatelet Emjbs760230 - 371 x10(9)/L111/30/2024 10:46 AM CSTOWATLeukocytes3.83.4 - 9.6 x10(9)/L111/30/2024 10:46 AM CSTOWATNeutrophils2.411.56 - 6.45 x10(9)/L111/30/2024 10:46 AM CSTOWAT Lymphocytes0.950.95 - 3.07 x10(9)/L111/30/2024 10:46 AM CSTOWATMonocytes0.21(L) 0.26 - 0.81 x10(9)/L111/30/2024 10:46 AM CSTOWATEosinophils0.180.03 - 0.48 x10(9)/L111/30/2024 10:46 AM CSTOWATBasophils0.040.01 - 0.08 x10(9)/L111/30/2024 10:46 AM CSTOWATSpecimen (Source)Anatomical Location / LateralityCollection Method / VolumeCollection TimeReceived TimeBlood (Blood, Venous)09/30/2025 8:49 AM CST09/30/2025 10:33 AM CUSTOMER LOYALTY REPRESENTATIVE Narrative Authorizing ProviderResult TypeResult StatusJessica BarnesLAB BLOOD ADD-ONFinal ResultPerforming OrganizationAddressCity/State/ZIP CodePhone Number [facility] [address] [place] [address], [facility] OWAT [facility] [place] [address] [place] [address] documented in this encounter Visit Diagnoses Diagnosis 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 [address] [place] [address] Ave [place] Hansen [phone] PCP - GeneralFamily Medicine04/2505/2312/4/25documented as of this encounter
--- OUTSIDE RECORDS SUMMARY | 2025-10-13 11:20 | XMS_ITS | Encounter Summary ---
Author Organization [facility] Address [address] [place] [address] Care Team Providers Care Bow Repairer Custom Name Role Phone Renzo Andres M.D. Primary Care Provider Reason for Visit * ReasonCommentsImmunizations Encounter Details DateTypeDepartmentCare Team (Latest Contact Info)Vaiihhqxhwl25/25/2025 11:20 AM CSTNurse Only Section of Infectious Diseases in [place], [place] [address] [place] [phone] Pato Sanchez M.D., Ph.D. [address] [place] [phone] Jennifer Marx R.N. [address] [place] [phone] Immunizations Social History Tobacco UseTypesPacks/DayYears UsedDateSmoking Tobacco: [...] before you got the money to buymore.Patient wvukrlek97/25/2025Within the past 12 months, the food you bought just didn't last and you didn't have money to get more.Patient irosfixy28/25/2025PRAPARE - TransportationAnswerDate RecordedIn the past 12 months, has lack of transportation kept you from medical appointments or from getting medications?No08/13/2025In the past 12 months, has lack of transportation kept you from meetings, work, or from getting things needed for daily living?No08/13/2025HC UtilitiesAnswerDate RecordedIn the past [address] [employer], gas, oil, or water kaufDA threatened to shut off services in your home?Patient plgnzcem97/25/2025Postpartum DepressionAnswerDate RecordedPHQ- 9 Total Score (max 27)12007/08/2025Housing StabilityAnswerDate RecordedWhat is your living situation today?I have a steady place to live08/13/2025Education AnswerDate RecordedWhat is the highest level of school you have completed or the highest degree you have received?Some college, no aiumkf1504/24/2019 CommentsNoSex and Gender InformationValueDate RecordedSex Assigned at Nidois9812/26/2018 8:37 PM CSTLegal KimMcgqxg30/02/2017 2:43 PM CSTGender Identity Ihzbfn8812/26/2018 8:37 PM CSTSexual OrientationChoose not to djidghzr05/17/2021 3:46 PM CDTdocumented as of this encounter [...] 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 [address] [place] [phone] 11/17/2025 11:00 AM CSTTelemedicine Department of Palliative Care in [address] [phone] Yary Landa D.O. [address] [place] [phone] 12/04/2025 1:30 PM CSTClinical Communication Virtual Review in [place], [place] 200 [place] [address] 12/07/2025 8:10 AM CSTLab Department of Laboratory Medicine and Pathology, [facility], in [place] [address] [address] [place] [address] Jessica Rousseau M.B.B.S. [address] [place] [phone] 12/07/2025 9:15 AM CSTAppointment Outpatient Procedure Center in [place], [place] [address] [place] [phone] Jessica Rousseau M.B.B.S. [address] [place] [phone] 12/07/2025 11:00 AM CSTDiagnostic Division of Pulmonary Medicine in [place], [place] [address] [place] [address] Jessica Rousseau M.B.B.S. [address] [place] [phone] 12/07/2025 1:00 PM CSTOffice Visit [facility] for [facility] Clinical [facility] in [place], [place] [address] [place] [address] Jessica Rousseau M.B.B.S. [address] [place] [phone] 12/07/2025 1:30 PM CSTNurse Only [facility] for Transplantation and Clinical Regeneration in [place], [place] [address] [place] [address] Jessica Rousseau M.B.B.S. [address] [place] [phone] 12/07/2025 2:00 PM CSTOffice Visit [facility] for Transplantation and Clinical Regeneration in [place], [place] [address] [place] [address] Jessica Rousseau M.B.B.S. [address] [place] [phone] 12/07/2025 3:00 PM CSTOffice Visit Department of Palliative Care in [place], [place] [address] [place] [phone] Martine Pardo B.MKatalinaB.S., B.M., B.Ch. [address] [place] [phone] documented as of this encounter Visit Diagnoses Diagnosis Need Vaccine Immunization- Primary documented in this encounter Additional Health Concerns InfectionOnset DateLast IndicatedResolved TimeProtective Jmanegncllb06/14/2023 03/02/2023ssessmentNoted TimePHQ-9 Depression Total Score: 9:42 AM CDTdocumented as of this encounter Care Teams Team MemberRelationshipSpecialtyStart DateEnd Date Renzo Andres M.D. [address] [place] [phone] PCP - GeneralFamily Medicine04/25/2312documented as of this encounter
--- OUTSIDE RECORDS SUMMARY | 2025-10-26 14:00 | XMS_ITS | Encounter Summary ---
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 [address] [place] [address] Phone: tel: fax: [facility] Referral IDStatusReasonStart DateExpiration DateVisits RequestedVisits [id number]/8/20256/9/[id number] Scheduling Instructions Please schedule with ANUPAM for 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 [address] [place] [address] Phone: tel: fax: [facility] Referral IDStatusReasonStart DateExpiration DateVisits RequestedVisits [id number]/8/20256/9/[id number] Scheduling Instructions Please schedule with RNCC for [address] TESTER Reason for Visit * Transplant (Routine) - AuthorizedSpecialtyDiagnoses / ProceduresReferred By ContactReferred To ContactTransplant Devi Roper APRN, C.N.P., D.N.P. [address] [place] [address] Phone: tel: fax: [facility] Referral IDStatusReasonStdagmar DateExpiration DateVisits RequestedVisits [id number]/8/20256/9/[id number] Encounter Details DateTypeDepartmentCare Team (Latest Contact Info)Phwffdnqnbq90/08/2025 2:00 PM CSTOffice Visit Pedro sanchez [facility] in [place], [place] [address] [place] [address] Devi Roper APRN, C.N.P., D.N.P. [address] [place] [address] Transplant Stem Cell (HCC) (Primary [...] before you got the money to buymore.Patient usvmycyv42/25/2025Within the past 12 months, the food you bought just didn't last and you didn't have money to get more.Patient krksnotl70/25/2025PRAPARE - TransportationAnswerDate RecordedIn the past 12 months, has lack of transportation kept you from medical appointments or from getting medications?No08/13/2025In the past 12 months, has lack of transportation kept you from meetings, work, or from getting things needed for daily living?No08/13/2025HC UtilitiesAnswerDate RecordedIn the past 12 months has the [employer], gas, oil, or water company threatened to shut off services in your home?Patient dcpzmcmi91/25/2025Postpartum DepressionAnswerDate RecordedPHQ- 9 Total Score (max 27)12007/08/2025Housing StabilityAnswerDate RecordedWhat is your living situation today?I have a steady place to live08/13/2025Education AnswerDate RecordedWhat is the highest level of school you have completed or the highest degree you have received?Some college, no lvrbrd6404/24/2019 CommentsNoSex and Gender InformationValueDate RecordedSex Assigned at Urylsf3912/26/2018 8:37 PM CSTLegal RmlKmaqft35/02/2017 2:43 PM CSTGender Identity Mrfwkv6012/26/2018 8:37 PM CSTSexual OrientationChoose not to /17/2021 3:46 PM CDTdocumented as of this encounter Last Filed Vital Signs Vital SignReadingTime TakenCommentsBlood Smsgcnju620/8810/26/2025 1:52 PM RECORD TESTER Nhpxs21012/08/2025 1:52 PM FCAXrqdofgagdd42.7 ??C (98.1 ??F)10/26/2025 1:52 PM CSTRespiratory Rate--Oxygen Saturation--Inhaled Oxygen Concentration--Youiub521 kg (235 lb 9 oz)10/26/2025 1:52 PM CSTHeight--Body Mass Index35.7008/13/2025 10:31 AM CDTdocumented in this encounter Progress Notes * Devi Roper, KARON, C.N.P., D.N.P. - 10/26/2025 2:00 PM CST SUBJECTIVE TRANSPLANT PHYSICIAN Dr. Jessica Rousseau, pager [phone]. CHIEF COMPLAINT Ms. Radha Martinez is a [...] reticulin fibrosis noted. 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 The BCR-ABL1 P [...] t(9;22) metaphases. 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 06/17/2024: feeling quite symptomatic since the [...] Access Camargo CVC placed on 12/03/24 by [facility]. Social Work Seen and cleared on [...] was able to attend her boyfriend's work [employer] Sunday evening without any issues. Sunday was [...] Time: 10/26/25 1:40 PM Result Value [facility] LD 178 ASSESSMENT / PLAN # Chronic [...] right eye. Wears glasses. - Followed by [facility] in [place], [place]. # Transplant Survivorship - Please refer [...] 10/26/25 1505 1,000 mL at 10/26/[address] TESTER documented in this encounter Plan of Treatment DateTypeDepartmentCare Team (Latest Contact Info)Xoayuauwycm81/29/2025 9:00 AM CSTOffice Visit Department of Obstetrics and Gynecology in [place], [place] [address] [place] [phone] Alice Linares M.D. [address] [place] [phone] 11/17/2025 11:00 AM CSTTelemedicine Department of Palliative Care in [address] [phone] Yary Landa D.O. [address] [place] [phone] 12/04/2025 1:30 PM CSTClinical Communication Virtual Review in [place], [place] [address] [place] [address] 12/07/2025 8:10 AM CSTLab Department of Laboratory Medicine and Pathology, [facility] in [place], [place] [address] [place] [phone] Jessica Rousseau M.B.B.S. [address] [place] [phone] 12/07/2025 9:15 AM CSTAppointment Outpatient Procedure Center in [address] [phone] Jessica Rousseau M.B.B.S. [address] [place] [phone] 12/07/2025 11:00 AM CSTDiagnostic Division of Pulmonary Medicine in [address] [address] Jessica Rousseau M.B.B.S. [address] [place] [address] 12/07/2025 1:00 PM CSTOffice Visit [facility] in [place], [place] [address] [place] [phone] Jessica Rousseau M.B.B.S. [address] [place] [phone] 12/07/2025 1:30 PM CSTNurse Only [facility] Clinical [facility] in [place], [place] [address] [place] [phone] Jessica Rousseau M.B.B.S. [address] [place] [phone] 12/07/2025 2:00 PM CSTOffice Visit [facility] Trans[facility] Clinical Regeneration in [place], [place] [address] [place] [address] Jessica oRusseau M.B.B.S. [address] [place] [phone] 12/07/2025 3:00 PM CSTOffice Visit Department of Palliative Care in [place], [place] [address] [place] [phone] Martine Pardo B.M.B.S., B.M., B.Ch. 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 Signing Pathologist: Rehan Norton M.D. 11/02/2025 4:41 PM CSTDTLComment: ----ADDITIONAL INFORMATION---- Method summary - BCR/ABL1, p210 fusion: ??The BCR/ABL1 transcript level was evaluated using a quantitative, reverse photo tube assembler PCR. The analytical sensitivity of this assay [...] all possible fusion forms. Please contact the [facility] at [phone] with questions or if additional testing is required. See the [facility] Interpretive Handbook for method details. The reproducibility of this assay is such that results within 0.5 log should be considered equivalent. ??Trends in the level of BCR/ABL1 mRNA should be followed carefully and clinically significant changes in BCR/ABL1 mRNA levels during tyrosine kinase inhibitor (TKI) therapy may indicate the presence of acquired BCR/ABL1 kinase domain mutations, which can be further evaluated using the BCR/ABL KDM assay (test: BAKDM). This test was developed and its performance characteristics determined by [facility] in a manner consistent with CLIA requirements. This test has not been cleared or approved by the U.S. Food and Drug Administration. Specimen (Source)Anatomical Location / LateralityCollection Method / Volume Collection TimeReceived TimeBlood (Blood, Venous)10/30/2025 7:55 AM RECORD TESTER 10/30/2025 8:25 AM RECORD TESTER Narrative Authorizing ProviderResult TypeResult StatusKimbermary Roper APRN, C.N.P., D.N.P.LAB BLOOD NON ADD-ONFinal ResultPerforming OrganizationAddress City/State/[facility] CodePhone Number [facility] [address] [place] [address], [facility] 200 [facility] 200 [place] [address] * Chimerism Transplant Sorted Cells (10/30/2025 7:55 AM RECORD TESTER)ComponentValueRef RangeTest MethodAnalysis TimePerformed AtPathologist SignatureSpecimen Type Peripheral blood11/03/2025 1:30 PM CSTDTLInterpretationPeripheral blood, chimerism analysis: CD3-positive T-cells: ??The CD3-positive fraction contains approximately 95% donor DNA and approximately 5% recipient DNA. TM80-utbagoyj myeloid cells: ??The DD05-tmuviacu fraction contains approximately 100% donor DNA and approximately 0% recipient DNA. 3 informative loci were used in the analysis of this sample. Signing Pathologist: Deidra Pruitt M.D. The pre-analytical cell sorting was performed on a research basis only. The analytical sensitivity of this assay is approximately 5% in a posttransplant specimen (donor and recipient DNA mixed chimerism). T-cells and myeloid cells were enriched to a purity of 95% or greater. Markers analyzed: B4L2122, I8N1013, FGA, SE33, vWA, D21S11, J79X8122, D69S8548, D36F768, D18S51, Z8A806, D1J6612, CSF1PO, J8N075, M71H056, I94I182, TPOX, Y10N883, K3S263 and N8X0342 11/03/2025 1:30 PM CSTDTLComment: ----ADDITIONAL INFORMATION---- Method summary - Chimerism: ??Genomic DNA was extracted and the specimen evaluated for the percentages of donor and recipient DNA using a PCR-based method that amplifies several highly polymorphic short tandem repeats (see [facility] Interpretive Handbook for method details). This test was developed and its performance characteristics determined by [facility] in a manner consistent with CLIA requirements. This test has not been cleared or approved by the U.S. Food and Drug Administration. Specimen (Source)Anatomical Location / LateralityCollection Method / Volume Collection TimeReceived TimeBlood (Blood, Peripheral Draw)10/30/2025 7:55 AM RECORD TESTER 10/30/2025 8:24 AM RECORD TESTER Narrative Authorizing ProviderResult TypeResult StatusKicarlotta Roper APRN C.N.P., D.N.P.LAB GENETIC TESTINGFinal ResultPerforming OrganizationAddress City/State/ZIP CodePhone Number [facility] [address] [place] [address], [place] [facility] [address] [place] [address] * CMV DNA Detect / Quant, Plasma (10/30/2025 7:55 AM RECORD TESTER)ComponentValueRef Range Test MethodAnalysis TimePerformed AtPathologist SignatureCMV DNA Detect/Quant, PUndetectedUndetected IU/mL10/30/2025 11:09 PM CSTSDSCComment: Result in log IU/mL is Undetected. ----ADDITIONAL INFORMATION---- The quantification range of this assay is 35 to 10,000,000 IU/mL (1.54 log to 7.00 log IU/mL). Testing was performed using the lucrecia CMV test ([employer] Specimen (Source)Anatomical Location / LateralityCollection Method / Volume Collection TimeReceived TimeBlood (Blood, Venous)10/30/2025 7:55 AM RECORD TESTER 10/30/2025 10:07 AM RECORD TESTER Narrative Authorizing ProviderResult TypeResult StatusSatnam Foster APRN.N.P., D.N.P.LAB MICROBIOLOGY - BLOOD ORDERABLESFinal ResultPerforming Organization AddressCity/State/ZIP CodePhone Number [facility] [address] [place] [address] [facility] [address] [place] [address] [place] [address] * LD (Lactate Dehydrogenase) (10/30/2025 7:55 AM RECORD TESTER)ComponentValueRef RangeTest MethodAnalysis TimePerformed AtPathologist SignatureHospital Deanna [id number] - 222 U/L112/31/2024 9:11 AM CSTDTLSpecimen (Source)Anatomical Location / LateralityCollection Method / VolumeCollection TimeReceived TimeBlood (Blood, Venous)10/30/2025 7:55 AM CST10/30/2025 8:42 AM RECORD TESTER Narrative Authorizing ProviderResult TypeResult StatusDevi Roper APRN, C.N.P., D.N.P.LAB BLOOD NON ADD-ONFinal ResultPerforming OrganizationAddress City/State/ZIP CodePhone Number [facility] [address] [place] [address], [place] D[place] [facility] [address] [place] [address] documented in this encounter Visit Diagnoses Diagnosis Transplant Stem Cell (HCC)- Primary 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
--- OUTSIDE RECORDS SUMMARY | 2025-10-26 14:40 | XMS_ITS | Encounter Summary ---
Author Organization [facility] Address [address] [place] [address] Care Team Providers Care Impregnation Operator Name Role Phone Elsewhere, Pcp Primary Care Provider Unavailabl e Reason for Referral * SpecialtyDiagnoses / ProceduresReferred By ContactReferred To Contact [facility] [address] [place] [address] Phone: tel: [facility] Referral IDStatusReasonStart DateExpiration DateVisits RequestedVisits Authorized ATION SALES CONSULTANT Reason for Visit * Episode Based Medications (Routine) - AuthorizedSpecialtyDiagnoses / ProceduresReferred By ContactReferred To Contact Diagnoses 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 [address] [place] [address] Phone: tel: fax: [facility] in [place], [place] [address] [place] [address] Phone: tel: fax: Referral IDStatusReasonStart DateExpiration DateVisits RequestedVisits [id number]/14/20251/14/[id number] Encounter Details DateTypeDepartmentCare Team (Latest Contact Info)Nbrnfwowbre63/08/2025 2:40 PM EDUCATION SALES CONSULTANT - 10/26/2025 6:09 PM CSTHospital Encounter [facility], Ninth Floor [address] [place] [address] Devi Roper APRN, C.N.P., D.N.P. 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); Transplant Bone Marrow Allogeneic (HCC) Social History Tobacco UseTypesPacks/DayYears UsedDateSmoking Tobacco: NeverSmokeless [...] before you got the money to buymore.Patient qqfpcxuc54/25/2025Within the past 12 months, the food you bought just didn't last and you didn't have money to get more.Patient takbfoms95/25/2025PRAPARE - TransportationAnswerDate RecordedIn the past 12 months, has lack of transportation kept you from medical appointments or from getting medications?No08/13/2025In the past 12 months, has lack of transportation kept you from meetings, work, or from getting things needed for daily living?No08/13/2025HC UtilitiesAnswerDate RecordedIn the past 12 months has the [employer], gas, oil, or water [employer] threatened to shut off services in your home?Patient uackregb62/25/2025Postpartum DepressionAnswerDate RecordedPHQ- 9 Total Score (max 27)12007/08/2025Housing StabilityAnswerDate RecordedWhat is your living situation today?I have a steady place to live08/13/2025Education AnswerDate RecordedWhat is the highest level of school you have completed or the highest degree you have received?Some college, no gfrxgc1604/24/2019 CommentsNoSex and Gender InformationValueDate RecordedSex Assigned at Rogtgm6912/26/2018 8:37 PM CSTLegal DgnOpbhas97/02/2017 2:43 PM CSTGender Identity Hwevvy7312/26/2018 8:37 PM CSTSexual OrientationChoose not to amdynfhn33/17/2021 3:46 PM CDTdocumented as of this encounter Last Filed Vital Signs Vital SignReadingTime TakenCommentsBlood Rnbxfxfh165/7057110/26/2025 2:53 PM EDUCATION SALES CONSULTANT Tneqy64913/08/2025 2:53 PM VOBLgzhpcwzxig47.8 ??C (98.2 ??F)10/26/2025 4:17 PM CSTstill nchillsRespiratory Kwkj044212/27/2024 2:53 PM CSTOxygen Lyzrthsmaf04% 10/26/2025 2:53 PM CSTInhaled Oxygen Concentration--Gstedk726 kg (235 lb 7.2 oz) 10/26/2025 2:53 PM CSTHeight--Body Mass Index35.6809 10:31 AM CDT documented in this encounter Medications at Time of Discharge MedicationSigDispense QuantityRefillsLast FilledStart DateEnd Date ARIPiprazole (Abilify) 10 mg tablet Take 1 tablet (10 mg total) by mouth daily. Dose change 12/02/2024 30 tablet buprenorphine (Butrans) 5 mcg/hour Indications:Chronic Pain/Nonacute PainPlace 1 patch on the skin once a week Indication: Chronic Pain/Nonacute Pain. 4 patch 10/12/2025 cholecalciferol (Vitamin D3) 50 mcg (2,000 [...] as needed for indigestion (dyspepsia). 354 mL granisetron (KytriL) 1 mg tablet Indications:Nausea And VomitingTake 1 tablet (1 mg total) by mouth daily as needed for nausea or vomiting. 20 tablet hydrOXYzine (Atarax) 25 mg tablet Indications:AnxietyTake 1-2 [...] if no or minimal response. 2 each ondansetron ODT (Zofran-ODT) 4 mg disintegrating tablet Dissolve 1-2 tablets (4-8 mg total) in the mouth every 8 (eight) hours as needed for nausea or vomiting. 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 90 tablet prochlorperazine (Compazine) 10 mg tablet Take 1 tablet (10 mg total) by mouth every 6 (six) hours as needed for nausea. 30 tablet / sulfamethoxazole-trimethoprim (Bactrim) 400-80 mg per tablet Indications:Transplant Bone Marrow Allogeneic (HCC),Leukemia Myeloid Chronic BCR/ABL Positive Not Having Achieved Remission (HCC)Take 1 tablet by mouth daily. 60 tablet documented as of this encounter Plan of Treatment DateTypeDepartmentCare Team (Latest Contact Info)Sfezqniukku19/29/2025 9:00 AM CSTOffice Visit Department of Obstetrics and Gynecology in [place], [place] [address] [place] [phone] Alice Linares M.D. [address] [place] [phone] 11/17/2025 11:00 AM CSTTelemedicine Department of Palliative Care in [place], [place] [address] [place] [phone] Yary Landa D.O. [address] [place] [phone] 12/04/2025 1:30 PM CSTClinical Communication Virtual Review in [place], [place] 200 [place] [phone] 12/07/2025 8:10 AM CSTLab Department of Laboratory Medicine and Pathology, [facility], in [place], [place] [address] [place] [address] Jessica Rousseau M.B.B.S. [address] [place] [phone] 12/07/2025 9:15 AM CSTAppointment Outpatient Procedure Center in [place], [place] [address] [place] [address] Jessica Rousseau M.B.B.S. [address] [place] [phone] 12/07/2025 11:00 AM CSTDiagnostic Division of Pulmonary Medicine in [place], [place] [address] [place] [phone] Jessica Rousseau M.B.B.S. [address] [place] [phone] 12/07/2025 1:00 PM CSTOffice Visit [facility] in [place], [place] [address] [place] [address] Jessica Rousseau M.B.B.S. [address] [place] [phone] 12/07/2025 1:30 PM CSTNurse Only [facility] in [place], [place] [address] [place] [phone] Jessica Rousseau M.B.B.S. [address] [place] [phone] 12/07/2025 2:00 PM CSTOffice Visit [facility] in [place], [place] [address] [place] [phone] Jessica Rousseau M.B.B.S. [address] [place] [phone] 12/07/2025 3:00 PM CSTOffice Visit Department of Palliative Care in [place], [place] [address] [place] [phone] Martine Pardo B.M.B.S., Juan M, B.Ch. 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 If patient unable to take oral medications. 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 Peds IV push rate: Over 1 minute. Doses > 15 mg IV/IM are discouraged due to lack of additional analgesic benefit. 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 Peds IV push rate: Over 1 minute. Doses > 15 mg IV/IM are discouraged due to lack of additional analgesic benefit. 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
--- OUTSIDE RECORDS SUMMARY | 2025-10-29 14:15 | XMS_ITS | Encounter Summary ---
Author Organization [facility] Address [address] [place] [address] Care Team Providers Care Business Lawyer Name Role Phone Elsewhere, Pcp Primary Care Provider Unavailabl e Reason for Referral * Outpatient (Routine) - AuthorizedSpecialtyDiagnoses / ProceduresReferred By ContactReferred To ContactGynecology Diagnoses Adenomyosis Vandana Guerra M.D., M.S. [address] [place] [phone] Phone: tel: fax: Health System Referral IDStatusReasonStart DateExpiration DateVisits RequestedVisits [id number]/12/20256/13/202711 ALES CONSULTANT Reason for Visit * ReasonCommentsAbdominal PainBack Pain Encounter Details DateTypeDepartmentCare Team (Latest Contact Info)Cryckalkgch14/11/2025 2:15 PM PRESALES CONSULTANT - 10/30/2025 2:51 AM CSTEmergency [facility] [address] [place] [phone] Sean Beard M.D. 200 [place] [phone] Humza Person M.D., M.B.A. 200 [place] [phone] Lower Abdominal Pain Unspecified (Primary Dx); Pain [...] before you got the money to buymore.Patient dtviycvx47/25/2025Within the past 12 months, the food you bought just didn't last and you didn't have money to get more.Patient qehyqpzv20/25/2025PRAPARE - TransportationAnswerDate RecordedIn the past 12 months, has lack of transportation kept you from medical appointments or from getting medications?No08/13/2025In the past 12 months, has lack of transportation kept you from meetings, work, or from getting things needed for daily living?No09/25/2025AHC UtilitiesAnswerDate RecordedIn the past 12 months has the electric, gas, oil, or water company threatened to shut off services in your home?Patient xuflqvdt17/25/2025Postpartum DepressionAnswerDate RecordedPHQ- 9 Total Score (max 27)12007/08/2025Housing StabilityAnswerDate RecordedWhat is your living situation today?I have a steady place to live08/13/2025Education AnswerDate RecordedWhat is the highest level of school you have completed or the highest degree you have received?Some college, no gfrbgf7104/24/2019 CommentsNoSex and Gender InformationValueDate RecordedSex Assigned at Oerghr8012/26/2018 8:37 PM CSTLegal TrnXdyczs67/02/2017 2:43 PM CSTGender Identity Ylfodm9712/26/2018 8:37 PM CSTSexual OrientationChoose not to qglvaper74/17/2021 3:46 PM CDTdocumented as of this encounter Last Filed Vital Signs Vital SignReadingTime TakenCommentsBlood Dehdfgch348/9310/30/2025 2:30 AM PRESALES CONSULTANT Mqnnh942910/30/2025 2:30 AM HTZGsqlnyvxlyr25.9 ??C (98.4 ??F)10/29/2025 9:48 PM CSTRespiratory Hmnj779912/31/2024 2:30 AM CSTOxygen Xwzwswjzok79%10/30/2025 2:30 AM CSTInhaled Oxygen Concentration--Mpsmdj465 kg (235 lb 14.3 oz)10/29/2025 2:18 PM CSTHeight--Body Mass Index35.75008/13/2025 10:31 AM CDTdocumented in this encounter Discharge Instructions * Discharge Instructions* Vandana Guerra M.D., M.S. - 10/30/2025 12:24 AM PRESALES CONSULTANT You can use Dilaudid for your pain [...] to confirm resolution of your urinary infection. ALES CONSULTANT ALES CONSULTANT ALES CONSULTANT ALES CONSULTANT documented in this encounter Medications at Time of Discharge MedicationSigDispense QuantityRefillsLast FilledStart DateEnd Date buprenorphine (Butrans) 5 mcg/hour Indications:Chronic Pain/Nonacute PainPlace [...] 2 (two) times a day. 60 tablet HYDROmorphone (Dilaudid) 2 mg tablet Indications:Acute PainTake 1 tablet (2 mg total) by mouth every 3 (three) hours as needed for pain for up to 2 days Indication: Acute Pain. 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 180 tablet 309/ naloxone (Narcan) 4 mg/actuation nasal spray [place] one device into nostril upon signs of opioid overdose. Call 911. Repeat with second device inthe other nostril if no response within 2-3 minutes. Use 1 spray in 1 nostril. Repeat with second device in other nostril after 2-3 minutes if no or minimal response. 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 60 tablet 109/20241120/documented as of this encounter ED Notes * [...] outpatient labs. ED Course as of 10/30/25 09 Tigist Oct 29, 2025 2300 Compared with EKG of July 06, 2025 heart rate has increased from normal sinus rhythm rate of73 to 75 normal sinus rhythm, QTC interval has increased from 418 to 437, no STEMI Final Diagnoses: as of 10/30/25902 Lower Abdominal Pain Unspecified Pain Back Pyuria [...] pelvic ultrasound. Sean Beard M.D. 10/30/25 0904 ALES CONSULTANT * Sean Beard M.D. - 10/29/2025 10:19 [...] Unspecified Pain Back Pyuria Adenomyosis Amanda Bernal 10/30/25 0115 Sean Beard M.D. 10/30/25 0905 ALES CONSULTANT ALES CONSULTANT ALES CONSULTANT * Racquel Oakley R.N. - 10/29/2025 2:28 PM CST Presents with LLQ abd pain, lower back pain, nausea and a headache since . Denies fevers, chills, vomiting, diarrhea. 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 Racquel Oakley R.N. 10/29/25 1429 ALES CONSULTANT documented in this encounter Plan of Treatment DateTypeDepartmentCare Team (Latest Contact Info)Wltqxinwray52/29/2025 9:00 AM CSTOffice Visit Department of Obstetrics and Gynecology in [place], [place] [address] [place] [phone] Alice Linares M.D. [address] [place] [phone] 11/17/2025 11:00 AM CSTTelemedicine Department of Palliative Care in [place], [place] [address] [place] [phone] Yary Landa D.O. [address] [place] [phone] 12/04/2025 1:30 PM CSTClinical Communication Virtual Review in [place], [place] [address] [place] [address] 12/07/2025 8:10 AM CSTLab Department of Laboratory Medicine and Pathology, [facility], in [place], [place] [address] [place] [phone] Jessica Rousseau M.B.B.S. [address] [place] [phone] 12/07/2025 9:15 AM CSTAppointment Outpatient Procedure Center in [place], [place] [address] [place] [address] Jessica Rousseau M.B.B.S. [address] [place] [phone] 12/07/2025 11:00 AM CSTDiagnostic Division of Pulmonary Medicine in [place], [place] [address] [place] [address] Jessica Rousseau M.B.B.S. [address] [place] [phone] 12/07/2025 1:00 PM CSTOffice Visit [facility] in [place], [place] [address] [place] [address] Jessica Rousseau M.B.B.S. [address] [place] [phone] 12/07/2025 1:30 PM CSTNurse Only Pedro [facility] for Trans[facility] Clinical Regeneration in [place], [place] [address] [place] [address] Jessica Rousseau M.B.B.S. [address] [place] [address] 12/07/2025 2:00 PM CSTOffice Visit [facility] in [place], [place] [address] [place] [address] Jessica Rousseau M.B.BKatalinaS. [address] [place] [phone] 12/07/2025 3:00 PM CSTOffice Visit Department of Palliative Care in [place], [place] [address] [place] [phone] Martine Pardo B.M.B.S., Juan M, B.Ch. 200 [place] [phone] NameTypePriorityAssociated DiagnosesOrder SchedulePOST ED VISIT Gynecology Outpatient ReferralRoutine Adenomyosis Expected: 10/30/2025, Expires: 01/28/2027documented as of this encounter Procedures Procedure NamePriorityDate/TimeAssociated DiagnosisCommentsUS PELVIS TRANSVAGINAL AND TRANSABDOMINALRAD - Semiurgent (Fast; most ED patients; some inpatients)10/30/2025 12:25 AM PRESALES CONSULTANT NYKDMJY3510/29/2025 10:41 PM PRESALES CONSULTANT LACTATE, B/RYnyyw7510/29/2025 8:[address] ABDOMEN PELVIS WITH IV CONTRASTRAD - Semiurgent (Fast; most ED patients; some inpatients)10/29/2025 3:56 PM PRESALES CONSULTANT DIPSTICK, USTAT112/30/2024 2:49 PM PRESALES CONSULTANT MICROSCOPIC RQPHZWWYAT33/11/2025 2:49 PM PRESALES CONSULTANT BACTERIAL CULTURE, AEROBIC + SUSC, RHRIWYENN79/11/2025 2:49 PM PRESALES CONSULTANT PH, USTAT112/30/2024 2:49 PM PRESALES CONSULTANT OSMOLALITY, USTAT112/30/2024 2:49 PM PRESALES CONSULTANT URINALYSIS WITH JVPOUSZPERECHYF47/11/2025 2:49 PM PRESALES CONSULTANT LACTATE FOR SEPSIS WITH KWNDGEADXK49/11/2025 2:41 PM PRESALES CONSULTANT HEPATIC FUNCTION PANEL, SSTAT112/30/2024 2:41 PM PRESALES CONSULTANT CBC WITH DIFFERENTIAL, BSTAT112/30/2024 2:41 PM PRESALES CONSULTANT HUMAN CHORIONIC GONADOTROPIN (HCG), JAGRUTI,STAT112/30/2024 2:41 PM PRESALES CONSULTANT LIPASE, S/PSTAT112/30/2024 2:41 PM PRESALES CONSULTANT BASIC METABOLIC PANEL, S/PSTAT112/30/2024 2:41 PM PRESALES CONSULTANT documented in this encounter Results * US Pelvis Transvaginal and Transabdominal (10/30/2025 12:25 AM PRESALES CONSULTANT)Anatomical RegionLateralityModalityPelvis, Ultrasound RST LOS, Ultrasound ARZ LOS, Ultrasound FLA LOSN/AUltrasoundSpecimen (Source)Anatomical Location / LateralityCollection Method / VolumeCollection TimeReceived Time Impressions 10/30/2025 7:30 AM PRESALES CONSULTANT 1. Heterogeneous appearance of the myometrium, which can be seen with uterine adenomyosis. 2. ??Normal sonographic appearance of the bilateral ovaries with patent arterial vasculature. The ovarian veins were not visualized bilaterally. No definite evidence of ovarian torsion. Narrative 10/30/2025 7:30 AM PRESALES CONSULTANT EXAM: US PELVIS TRANSVAGINAL AND TRANSABDOMINAL Exam [...] ovarian torsion. Authorizing ProviderResult TypeResult StatusChristopher Linsey AMOS US PROCEDURESFinal Result * ECG 12 Lead (10/29/2025 10:41 PM PRESALES CONSULTANT)ComponentValueRef RangeTest Method Analysis TimePerformed AtPathologist SignatureVentricular Rate ECG/Dea10NQP MUSEPR Zzvxqurn394nlLIPRAQDX Pipkniub44laIPTQTA Qpynzsra851baECSTAIP Interval 437msMUSEP Tpvx35gdiqekrWMQCV Qxtn94anxdunjEWELB Wave Ihyp90ybvxqqzZYDP Specimen (Source)Anatomical Location / LateralityCollection Method / Volume Collection TimeReceived Time10/29/2025 10:41 PM CST10/29/2025 10:45 PM PRESALES CONSULTANT Impressions MUSE - 10/29/2025 10:45 PM PRESALES CONSULTANT Normal sinus rhythm Nonspecific ST abnormality When compared with ECG of 06-Jul-2025 07:57, No significant change was found Reviewed by LEONEL Cisse Narrative Procedure Note Néstor Navas M.D. - 10/29/2025 IMPRESSION: Normal sinus rhythm Nonspecific ST abnormality When compared with ECG of 06-Jul-2025 07:57, No significant change was found Reviewed by LEONEL Cisse Authorizing ProviderResult TypeResult StatusChrisdeepthi Beard M.D.ECG ORDERABLESFinal ResultPerforming OrganizationAddressCity/State/ZIP CodePhone Number MUSE NA * Lactate (10/29/2025 8:15 PM PRESALES CONSULTANT)ComponentValueRef RangeTest MethodAnalysis TimePerformed AtPathologist SignatureLactate, P1.60.5 - 2.2 mmol/L112/30/2024 8:54 PM CSTSTMASpecimen (Source)Anatomical Location / LateralityCollection Method / VolumeCollection TimeReceived WwilKddct32/11/2025 8:15 PM PRESALES CONSULTANT 10/29/2025 8:32 PM PRESALES CONSULTANT Narrative Authorizing ProviderResult TypeResult StatusJennyfer Paulino M.D.LAB BLOOD NON ADD-ONFinal ResultPerforming OrganizationAddressCity/State/ZIP CodePhone Number [facility] [address] [place] [address], [facility] [address] [facility] [place] [address] * CT Abdomen Pelvis with IV Contrast (10/29/2025 3:56 PM PRESALES CONSULTANT)Anatomical Region LateralityModalityAbdomen, Pelvis, Abdominal RST LOS, Abdominal ARZ LOS, Abdominal FLA LOSN/AComputed Tomography, Computed TomographySpecimen (Source) Anatomical Location / LateralityCollection Method / VolumeCollection Time Received Time10/29/2025 3:48 PM PRESALES CONSULTANT Impressions 10/29/2025 4:00 PM PRESALES CONSULTANT 1. Decompressed bladder is difficult to characterize but with apparent wall thickening. Correlate with urinalysis. No hydronephrosis. 2. ??Diffuse hepatic steatosis. 3. ??Spleen size, as detailed. Narrative 10/29/2025 4:00 PM PRESALES CONSULTANT EXAM: CT ABDOMEN PELVIS WITH IV CONTRAST [...] Authorizing ProviderResult TypeResult StatusMadeline Marisa Marquez P.A.-C., M.S.[facility] CT PROCEDURESFinal Result * (ABNORMAL) Microscopic Manual (10/29/2025 2:49 PM PRESALES CONSULTANT)ComponentValueRef Range Test MethodAnalysis TimePerformed AtPathologist SignatureMicroscopyAbnormal 10/29/2025 3:59 PM CSTDTLRBC<3<3 /hpf10/29/2025 3:59 PM PCQSYJSZW49-15(A)/hpf 10/29/2025 3:59 PM CSTDTLComment: ----REFERENCE VALUE---- <4 (Males) <11 (Females) Transitional Epithelial Cells1-3(A)/hpf10/29/2025 3:59 PM CSTDTLSquamous Epithelial Cells, U11-20/hpf10/29/2025 3:59 PM CSTDTLBacteriaPresent(A) 10/29/2025 3:59 PM CSTDTLSpecimen (Source)Anatomical Location / Laterality Collection Method / VolumeCollection TimeReceived AmmzNmpil64/11/2025 2:49 PM CST10/29/2025 3:37 PM PRESALES CONSULTANT Narrative Authorizing ProviderResult TypeResult StatusJennyfer Paulino M.D.LAB URINE ORDERABLESFinal ResultPerforming OrganizationAddressCity/State/ZIP CodePhone Number [facility] [address] [place] [address], [facility] 200 [place] [address] * (ABNORMAL) Dipstick, Urine (10/29/2025 2:49 PM PRESALES CONSULTANT)ComponentValueRef RangeTest MethodAnalysis TimePerformed AtPathologist SignatureHemoglobin, QL, UNegative Euvnsboq38/11/2025 3:38 PM CSTDTLLeukocyte Esterase, UModerate(A)Negative 10/29/2025 3:38 PM CSTDTLNitrite, ZVtgbciqkAioufsyc94/11/2025 3:38 PM CSTDTL Ketone, UNegativeNegative mg/dL10/29/2025 3:38 PM CSTDTLGlucose, UNegative Negative mg/dL10/29/2025 3:38 PM CSTDTLSpecimen (Source)Anatomical Location / LateralityCollection Method / VolumeCollection TimeReceived TimeUrine 10/29/2025 2:49 PM CST10/29/2025 3:24 PM PRESALES CONSULTANT Narrative Authorizing ProviderResult TypeResult StatusSean Beard M.D.LAB URINE ORDERABLESFinal ResultPerforming OrganizationAddressCity/State/ZIP Code Phone Number [facility] [address] [place] [address], [facility] [address] [place] [address] * pH, Urine (10/29/2025 2:49 PM PRESALES CONSULTANT)ComponentValueRef RangeTest MethodAnalysis TimePerformed AtPathologist SignaturepH, U5.44.5 - 8.012/09/2025 3:52 PM PRESALES CONSULTANT DTLSpecimen (Source)Anatomical Location / LateralityCollection Method / Volume Collection TimeReceived EuaoBxnmf84/11/2025 2:49 PM CST10/29/2025 3:24 PM PRESALES CONSULTANT Narrative Authorizing ProviderResult TypeResult StatusSean Beard M.D.LAB URINE ORDERABLESFinal ResultPerforming OrganizationAddress[facility]/State/ZIP Code Phone Number [facility] [address] [place] [address], [facility] [address] [place] [address] * Osmolality, Urine (10/29/2025 2:49 PM PRESALES CONSULTANT)ComponentValueRef RangeTest Method Analysis TimePerformed AtPathologist SignatureOsmolality, W725050 - 1150 mOsm/kg10/29/2025 3:52 PM CSTDTLSpecimen (Source)Anatomical Location / LateralityCollection Method / VolumeCollection TimeReceived TimeUrine 10/29/2025 2:49 PM CST10/29/2025 3:24 PM PRESALES CONSULTANT Narrative Authorizing ProviderResult TypeResult StatusSean Beard M.D.LAB URINE ORDERABLESFinal ResultPerforming OrganizationAddress[facility]/State/ZIP Code Phone Number [facility] [address] [place] [address], [facility] [address] [place] [address] * Bacterial Culture, Aerobic + Susceptibility, Urine (10/29/2025 2:49 PM PRESALES CONSULTANT) ComponentValueRef RangeTest MethodAnalysis TimePerformed AtPathologist SignatureUrine CultureUrogenital microbiota, susceptibilities not performed per laboratory criteria. 10/30/2025 10:30 AM CSTDTLSpecimen (Source)Anatomical Location / Laterality Collection Method / VolumeCollection TimeReceived TimeUrine (Urine, Midstream) 10/29/2025 2:49 PM CST10/29/2025 4:21 PM CSTComment:Specimen Source Site: Urine Narrative Authorizing ProviderResult TypeResult StatusSean Beard M.D.LAB MICROBIOLOGY - GENERAL ORDERABLESFinal ResultPerforming OrganizationAddress City/State/ZIP CodePhone Number [facility] [address] [place] [address], [facility] [address] [place] [address] * Urinalysis, with Microscopic: Urine, Midstream (10/29/2025 2:49 PM PRESALES CONSULTANT) ComponentValueRef RangeTest MethodAnalysis TimePerformed AtPathologist SignatureSourceUrine, Urine, Jhgkihzqe03/11/2025 3:24 PM CSTDTLColor, UYellow 10/29/2025 3:24 PM CSTDTLClarity, EJgrnh7410/29/2025 3:24 PM CSTDTLProtein, U17 <26 mg/dL10/29/2025 4:15 PM CSTDTLProtein/Osmolality0.26<0.42 ratio10/29/2025 4:15 PM CSTDTLPredicted 24 HR Protein, U195<229 mg/24 10/29/2025 4:15 PM PRESALES CONSULTANT DTLPredicted Xjjog76-753am/24 10/29/2025 4:15 PM CSTDTLSpecimen (Source) Anatomical Location / LateralityCollection Method / VolumeCollection Time Received TimeUrine (Urine, Midstream)10/29/2025 2:49 PM CST10/29/2025 3:24 PM PRESALES CONSULTANT Narrative Authorizing ProviderResult TypeResult StatusSean Beard M.D.LAB URINE ORDERABLESFinal ResultPerforming OrganizationAddressCity/State/ZIP Code Phone Number [facility] [address] [place] [address], [facility] [address] [place] [address] * hCG (Human Chorionic Gonadotropin), Quantitative, (10/29/2025 2:41 PM PRESALES CONSULTANT)ComponentValueRef RangeTest MethodAnalysis TimePerformed AtPathologist SignatureHCG, Quantitative, , P1.0<5 IU/L112/30/2024 3:18 PM CSTSTMA Specimen (Source)Anatomical Location / LateralityCollection Method / Volume Collection TimeReceived TimeBlood (Blood, Venous)10/29/2025 2:41 PM PRESALES CONSULTANT 10/29/2025 2:58 PM PRESALES CONSULTANT Narrative Authorizing ProviderResult TypeResult StatusChharitha Beard M.D.LAB BLOOD ADD-ONFinal ResultPerforming OrganizationAddressCity/State/ZIP CodePhone Number [facility] [address] [place] [address] * Lactate for Sepsis with Reflex (10/29/2025 2:41 PM PRESALES CONSULTANT)ComponentValueRef Range Test MethodAnalysis TimePerformed AtPathologist SignatureLactate, P2.20.5 - 2.2 mmol/L112/30/2024 3:13 PM CSTSTMASpecimen (Source)Anatomical Location / LateralityCollection Method / VolumeCollection TimeReceived TimeBlood (Blood, Venous)10/29/2025 2:41 PM CST10/29/2025 2:59 PM PRESALES CONSULTANT Narrative Authorizing ProviderResult TypeResult StatusChharitha Beard M.D.LAB BLOOD NON ADD-ONFinal ResultPerforming OrganizationAddressCity/State/ZIP Code Phone Number [facility] [address] [place] [address], [facility] [address] [place] [address] * (ABNORMAL) CBC with Differential, Blood (10/29/2025 2:41 PM PRESALES CONSULTANT)ComponentValue Ref RangeTest MethodAnalysis TimePerformed AtPathologist SignatureHemoglobin 12.811.6 - 15.0 g/dL10/29/2025 3:01 PM SNMZEQVHjuvhvswoz56.735.5 - 44.9 % 10/29/2025 3:01 PM CSTSTMAErythrocytes4.653.92 - 5.13 x10(12)/L112/30/2024 3:01 PM DFPVIYUCAV07.178.2 - 97.9 fL10/29/2025 3:01 PM CSTSTMARBC Distrib Width13.2 12.2 - 16.1 %10/29/2025 3:01 PM CSTSTMAPlatelet Dunmq511829 - 371 x10(9)/L 10/29/2025 3:01 PM CSTSTMALeukocytes4.43.4 - 9.6 x10(9)/L112/30/2024 3:01 PM CSTSTMANeutrophils2.911.56 - 6.45 x10(9)/10/29/2025 3:01 PM CSTDHPM Lymphocytes0.990.95 - 3.07 x10(9)/10/29/2025 3:01 PM CSTSTMAMonocytes0.18(L) 0.26 - 0.81 x10(9)/10/29/2025 3:01 PM CSTSTMAEosinophils0.300.03 - 0.48 x10(9)/10/29/2025 3:01 PM CSTSTMABasophils0.040.01 - 0.08 x10(9)/10/29/2025 3:01 PM CSTSTMASpecimen (Source)Anatomical Location / LateralityCollection Method / VolumeCollection TimeReceived TimeBlood (Blood, Venous)10/29/2025 2:41 PM CST10/29/2025 2:58 PM PRESALES CONSULTANT Narrative Authorizing ProviderResult TypeResult StatusChharitha Beard M.D.LAB BLOOD ADD-ONFinal ResultPerforming OrganizationAddressCity/State/ZIP CodePhone Number [facility] [address] [place] [address], [facility] ST[facility] [address] [place] [address] * Lipase (10/29/2025 2:41 PM PRESALES CONSULTANT)ComponentValueRef RangeTest MethodAnalysis Time Performed AtPathologist SignatureLipase, S1513 - 60 U/10/29/2025 3:30 PM PRESALES CONSULTANT DTLSpecimen (Source)Anatomical Location / LateralityCollection Method / Volume Collection TimeReceived TimeBlood (Blood, Venous)10/29/2025 2:41 PM PRESALES CONSULTANT 10/29/2025 3:14 PM PRESALES CONSULTANT Narrative Authorizing ProviderResult TypeResult StatusChharitha Beard M.D.LAB BLOOD ADD-ONFinal ResultPerforming OrganizationAddressCity/State/ZIP CodePhone Number [facility] [address] [place] [address], [facility] [address] [place] [address] * (ABNORMAL) Hepatic Function Panel (10/29/2025 2:41 PM PRESALES CONSULTANT)ComponentValueRef RangeTest MethodAnalysis TimePerformed AtPathologist SignatureBilirubin, Total, S0.30.0 [...] (Blood, Venous)10/29/2025 2:41 PM CST10/29/2025 3:14 PM PRESALES CONSULTANT Narrative Authorizing ProviderResult TypeResult StatusChristopher Linsey Beard M.D.LAB BLOOD ADD-ONFinal ResultPerforming OrganizationAddressCity/State/ZIP CodePhone Number [address] [address], [facility] [address] [place] [address] * (ABNORMAL) Basic Metabolic Panel (10/29/2025 2:41 PM PRESALES CONSULTANT)ComponentValueRef RangeTest MethodAnalysis TimePerformed AtPathologist SignaturePotassium, P3.7 3.6 - 5.2 mmol/L112/30/2024 3:17 PM CSTSTMASodium, W468233 - 145 mmol/L 10/29/2025 3:17 PM CSTSTMAChloride, S08376 - 107 mmol/L112/30/2024 3:17 PM PRESALES CONSULTANT STMABicarbonate, P2622 - 29 mmol/L112/30/2024 3:17 PM [...] (Blood, Venous)10/29/2025 2:41 PM CST10/29/2025 2:58 PM PRESALES CONSULTANT Narrative Authorizing ProviderResult TypeResult StatusChristopher Linsey Beard M.D.LAB BLOOD ADD-ONFinal ResultPerforming OrganizationAddressCity/State/ZIP CodePhone Number [address] [address], [facility] ST[facility] [address] [place] [address] documented in this encounter Visit Diagnoses Diagnosis [...] disturbances occur with use. Given10/29/2025 2:25 PM QIQ062 mg iohexoL 300 mg iodine/mL solution 1-200 mL (Omnipaque) 1-200 mL, intravenous, Once in imaging, contrast, Starting on Tigist 10/29/25 at 1543, For 1 dose, Imaging Protocol Orders, Dose per Radiant Medication Guidelines Given10/29/2025 3:50 PM ZGU645 mL nitrofurantoin monohydrate capsule 100 mg (Macrobid) 100 mg, oral, Once, On Tigist 10/29/25 at 2319, For 1 dose, Drug Monitoring Program: Pharmacist to adjust medication dosing based on indication and drug clearance factors., Indications: Lower UTI, Non-Catheter Indications:Lower UTI, Non-GdqskiekXvlqt62/11/2025 11:34 PM VYU137 mg sodium chloride (PF) 0.9 % injection [...] Recently Administered Medications Times are shown in PRESALES CONSULTANT.Medication Order12/10/262535/ droPERidoL injection 0.625 mg (Inapsine) (COMPLETED) 0.625 [...] 1 dose * 0048 (Given - Provider: Melva Carty R.N.) nitrofurantoin monohydrate capsule 100 mg (Macrobid) (COMPLETED) [...] Additional Health Concerns InfectionOnset DateLast IndicatedResolved TimeProtective Qhxbtmjellg66/14/2023 03/02/2023ssessmentNoted TimePHQ-9 Depression Total Score: 9:42 AM CDTdocumented as of this encounter Care Teams Team MemberRelationshipSpecialtyStart DateEnd Date Elsewhere, Pcp PCP - GeneralInternal Laniwcns09/5/25documented as of this encounter
--- OUTSIDE RECORDS SUMMARY | 2025-10-30 07:00 | XMS_ITS | Encounter Summary ---
Author Organization [facility] Address [address] [place] [address] Care Team Providers Care Information And Data Architect Analyst Name Role Phone Elsewhere, Pcp Primary Care Provider Unavailabl e Reason for Visit * Transplant (Routine) - AuthorizedSpecialtyDiagnoses / ProceduresReferred By ContactReferred To ContactTransplant Diagnoses Transplant Stem Cell (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) Devi Roper APRN, C.N.P., D.N.P. [address] [place] [address] Phone: tel: fax: [facility] Referral IDStatusReasonStart DateExpiration DateVisits RequestedVisits [id number]/8/[id number] Encounter Details DateTypeDepartmentCare Team (Latest Contact Info)Xhfrkzzftdm91/12/2025 7:00 AM CSTOffice Visit [facility] in [place], [place] [address] [place] [phone] Devi Roper APRN, C.N.P., D.N.P. [address] [place] [phone] Lito Pollock P.A.-C. [address] [place] [phone] Transplant Bone Marrow Allogeneic (HCC) (Primary Dx); Leukemia Myeloid Chronic BCR/ABL Positive Remission (HCC) Social History Tobacco UseTypesPacks/DayYears UsedDateSmoking Tobacco: NeverSmokeless Tobacco: NeverAlcohol UseStandard Drinks/WeekCommentsNever0 (1 standard drink = 0.6 oz pure alcohol)Humiliation, Afraid, Rape, and Kick questionnaireAnswerDate RecordedWithin the last year, have you been afraid of your partner or ex-partner?No11/01/2025Within the last year, have you been humiliated or emotionally abused in other ways by your partner or ex-partner?No11/01/2025 Within the last year, have you been kicked, hit, slapped, or otherwise physically hurt by your partner or ex-partner?No11/01/2025Within the last year, have you been raped or forced to have any kind of sexual activity by your part ner or ex-partner?No11/01/2025Hunger Vital SignAnswerDate RecordedWithin the past 12 months, you worried that your food would run out before you got the money to buymore.Never true11/01/2025Within the past 12 months, the food you bought just didn't last and you didn't have money to get more.Never true 11/01/2025PRAPARE - TransportationAnswerDate RecordedIn the past 12 months, has lack of transportation kept you from medical appointments or from getting medications?No11/01/2025In the past 12 months, has lack of transportation kept you from meetings, work, or from getting things needed for daily living?No 11/01/2025HC UtilitiesAnswerDate RecordedIn the past 12 months has the [employer], gas, oil, or water [employer] threatened to shut off services in your home?No11/01/2025Postpartum DepressionAnswerDate RecordedPHQ-9 Total Score (max 27)12007/08/2025Housing StabilityAnswerDate RecordedWhat is your living situation today?I have a steady place to live11/01/2025EducationAnswerDate RecordedWhat is the highest level of school you have completed or the highest degree you have received?Some college, no jbwben7704/24/2019CommentsNoSex and Gender InformationValueDate RecordedSex Assigned at XtugeWkoiuo60/07/2019 8:37 PM HOSE CEMENTER Legal OplJhesdy76/02/2017 2:43 PM CSTGender WpadnwriKuanat42/07/2019 8:37 PM HOSE CEMENTER Sexual OrientationChoose not to fjwlsoix89/17/2021 3:46 PM CDTdocumented as of this encounter Last Filed Vital Signs Vital SignReadingTime TakenCommentsBlood Cwdjvyhl527/9710/30/2025 7:06 AM HOSE CEMENTER Qlvvw07499/12/2025 7:06 AM WRWVrahsaulsld84.4 ??C (97.5 ??F)10/30/2025 7:06 AM CSTRespiratory Rate--Oxygen Saturation--Inhaled Oxygen Concentration--Borhte842 kg (236 lb)10/30/2025 7:06 AM CSTHeight--Body Mass Index35.7709 10:31 AM CDTdocumented in this encounter Progress Notes * Lito Pollock P.A.-C. - 10/30/2025 7:00 AM CST SUBJECTIVE TRANSPLANT PHYSICIAN Dr. Jessica Rousseau, pager [phone]. CHIEF COMPLAINT Ms. Radha Martinez is a 35 y.o. 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 Currently Day 324 post transplant HISTORY OF PRESENT ILLNESS Please refer to multiple prior notes in EMR for complete hematologic history: Ms. Martinez is a 35 y.o. 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 At the time of diagnosis, there was grade 3 reticulin fibrosis noted. The cytogenetics identified a [place] chromosome in 20 metaphases. The BCR-ABL1 P [...] t(9;22) metaphases. NGS is positive for ASXL1 p.Zab955Hdkuu*12 (20%) and p.Jml119* (3%). 06/17/2024: feeling quite symptomatic since the [...] [facility] CVC placed on 12/03/24 by [facility]. Social Work Seen and cleared [...] prophylaxis: Ursodiol 600 mg two times daily. [facility]: [id number] [...] Biopsies pending as of 08/05/25. INTERVAL HISTORY 10/30/2025 Ms Radha Martinez presented to ED with left lower quadrant and left flank pain for week.She also has associated nausea and vomiting for 3 days. Her T-max yesterday was 101. ER did thorough workup. Her labs overall are stable. UA shows moderate leukocyte esterase with WBC 31-40 and bacteria present. She denies dysuria, urinary frequency, or hematuria. CT abdomen shows bladder wall thickening. There is no other CT findings that could explain her abdominal pain and back pain. She was started on cefdinir 300 mg twice a day for 7 days for UTI. Urine culture pending. Ultrasound pelvis transvaginal and transabdominal shows findings that may suggest uterine adenomyosis. Ms. Martinez is going to request appointment with her hydramatic specialist for further recommendation. She was prescribed with hydromorphone for pain control. She was [facility]. She feels tired. She reports that she uses refresh tears once every a couple days for dry eyes. There is no mouth pain. She reports that neither Zofran or Compazine is helpful for nausea. She was prescribed with Kytril at last BMT visit, which is still underprior authorization. The ER physician prescribed Reglan for her. She is going to pick it up today. She denies diarrhea. She denies cough. She reports shortness of breath occasionally at night. No ankle swelling. No skin change suggesting cutaneous GVHD. There is no scleroderma either. She denies lightheadedness or dizziness. REVIEW OF SYSTEMS: a 10 point ROS was performed and negative with the exception of notation above OBJECTIVE VITAL SIGNS Temperature: [36.4 ??C-36.9 ??C] 36.4 ??C Heart Rate: [73-91] 80 Resp Rate: [14-22] 14 Blood Pressure: (114-161)/(69-106) 134/97 SpO2: [94 %-99 %] 97 % Pulse Rate: [73-108] 108 PHYSICAL EXAM General: alert and oriented. Appears to be tied, in no acute distress. VSS. Skin: no acute rashes or lesions present. No signs of scleroderma Eyes: anicteric ENT: moist oral mucosa. Heart: regular rate and rhythm. S1/S2 present. Lungs: CTABL Abd: soft, mild tenderness at left lower quadrant, no rebound tenderness. Bowel sounds present. No CVA tenderness. Spine: No tenderness with palpation. Extremities: no cyanosis, pallor, or edema present. KPS: 80% DIAGNOSTIC FINDINGS Recent Results (from the past 24 hours) Basic Metabolic Panel Collection Time: 10/29/25 2:41 PM Result Value Potassium, P 3.7 Sodium, P 139 Chloride, P 100 Bicarbonate, P 26 Anion Gap, P 13 BUN (Blood Urea Nitrogen), P 9 Creatinine 0.64 Estimated GFR (eGFR) >90 Calcium, Total, P 9.4 Glucose, P 153 (H) Hepatic Function Panel Collection Time: 10/29/25 2:41 PM Result Value Bilirubin, Total, S 0.3 Bilirubin, Direct, S <0.1 Aspartate Aminotransferase (AST), S 35 Alanine Aminotransferase (ALT), S 51 (H) Alkaline Phosphatase, S 94 Albumin, S 4.4 Protein, Total, S 7.1 Lipase Collection Time: 10/29/25 2:41 PM Result Value Lipase, S 15 CBC with Differential, Blood Collection Time: 10/29/25 2:41 PM Result Value Hemoglobin 12.8 Hematocrit 37.7 Erythrocytes 4.65 MCV 81.1 RBC Distrib Width 13.2 Platelet Count 220 Leukocytes 4.4 Neutrophils 2.91 Lymphocytes 0.99 Monocytes 0.18 (L) Eosinophils 0.30 Basophils 0.04 Lactate for Sepsis with Reflex Collection Time: 10/29/25 2:41 PM Result Value Lactate, P 2.2 hCG (Human Chorionic Gonadotropin), Quantitative, Collection Time: 10/29/25 2:41 PM Result Value HCG, Quantitative, , P 1.0 Urinalysis, with Microscopic: Urine, Midstream Collection Time: 10/29/25 2:49 PM Result Value Source Urine, Urine, Midstream Color, U Yellow Clarity, U Clear Protein, U 17 Protein/Osmolality 0.26 Predicted 24 HR Protein, U 195 Predicted Range 48-789 Osmolality, Urine Collection Time: 10/29/25 2:49 PM Result Value Osmolality, U 661 pH, Urine Collection Time: 10/29/25 2:49 PM Result Value pH, U 5.4 Dipstick, Urine Collection Time: 10/29/25 2:49 PM Result Value Hemoglobin, QL, U Negative Leukocyte Esterase, U Moderate (A) Nitrite, U Negative Ketone, U Negative Glucose, U Negative Microscopic Manual Collection Time: 10/29/25 2:49 PM Result Value Microscopy Abnormal RBC <3 WBC 31-40 (A) Transitional Epithelial Cells 1-3 (A) Squamous Epithelial Cells, U 11-20 Bacteria Present (A) Lactate Collection Time: 10/29/25 8:15 PM Result Value Lactate, P 1.6 ASSESSMENT / PLAN 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 - Repeat sort chimerism and BCR/ABL p210 on 10/30/2025, pending. - Bone marrow biopsy scheduled for Dec 07, 2025. 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 - Tacrolimus discontinued 04/17/2025. 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 - Has been using Zofran and Compazine as needed with minor benefit - Patient aware that IV/PO narcotics will not be utilized. Discussed that chronic pain was assessedbut encouraged her to follow up with Palliative Medicine (visit scheduled for 10/30/2025) - Rx for PO Kytril was sent on 10/26/25, currently under prior authorization. Discussed that this would be used in place of Zofran. - Reglan was prescribed by ER on October 30. # Diffuse radicular pain # Diffuse Abdominal Pain - Patient has had an extensive work up for abdominal pain including EGD/Flex Sig, numerous CT scans, and blood work to no avail. Treatment course has included Budesonide, Dilaudid, Levsin, Buprenorphine patch, Cymbalta - Followed by Palliative Medicine who renews the buprenorphine patch - Continues on buprenorphine patch weekly and Cymbalta 120mg daily - Follow up with Palliative Medicine on 10/30/2025 # UTI - CT abdomen on 10/29/25 shows bladder wall thickening. There is no other CT findings that could explain her abdominal pain and back pain. She was started on cefdinir 300 mg twice a day for 7 days for UTI. Urine culture pending. # Uterine adenomyosis - This was shown on US Pelvis on 10/30/25. - She is going to make an appointment with her hydramatic specialist. # Antimicrobial Prophylaxis - Currently on Acyclovir, Penicillin VK (on hold, will resume once completing cefdinir), Bactrim, and Posaconazole. - It should be noted she received two doses of Shingrix already. - CD4 245 on 10/30/25. I sent a message to Dr. Rousseau to ask if it is OK to stop Bactrim, posaconazole, and Acyclovir. Addendum: Dr. Rousseau agrees to d/c Bactrim, posaconazole, and Acyclovir. # Transaminitis - ALT slightly elevated. Monitor for now # Insomnia - Continues on Melatonin 5 -10 mg qHS and discussed she may take another 5 mg at night if she wakesup to try and help with sleep. # [...] Followed by [facility] in [place], [place]. # Transplant Survivorship - Please refer to the Care Coordination note for details. - Has received three sets of post transplant vaccines; will need fourth set with BMT return in Nov 2025 - Has not received annual influenza vaccine # Disposition - Will plan to be seen by Dr. Rousseau on 12/07/24 with annual work up. - Her labs are stable. Therefore no lab until next visit. CEMENTER CEMENTER CEMENTER CEMENTER CEMENTER documented in this encounter Miscellaneous Notes * Addendum Note - Lito Pollock P.A.-C. - 10/30/2025 7:00 AM CSTAddended by: LITO POLLOCK on: 11/02/2025 09:16 AM Modules accepted: Orders CEMENTER documented in this encounter Plan of Treatment DateTypeDepartmentCare Team (Latest Contact Info)Zushqgtnigk85/29/2025 9:00 AM CSTOffice Visit Department of Obstetrics and Gynecology in [place], [place] [address] [place] [address] Alice Linares M.D. [address] [place] [phone] 11/17/2025 11:00 AM CSTTelemedicine Department of Palliative Care in [place], [place] [address] [place] [phone] Yary Landa D.O. [address] [place] [phone] 12/04/2025 1:30 PM CSTClinical Communication Virtual Review in [place], [place] [address] [place] [address] 12/07/2025 8:10 AM CSTLab Department of Laboratory Medicine and Pathology, [facility] in [place], [place] [address] [place] [phone] Jessica Rousseau M.B.B.S. [address] [place] [phone] 12/07/2025 9:15 AM CSTAppointment [facility] in [place], [place] [address] [place] [phone] Jessica Rousseau M.B.B.S. [address] [place] [phone] 12/07/2025 11:00 AM CSTDiagnostic Division of Pulmonary Medicine in [place], [place] [address] [place] [phone] Jessica Rousseau M.B.B.S. [address] [place] [phone] 12/07/2025 1:00 PM CSTOffice Visit Pedro Aravind sanchez [facility] in [place], [place] [address] [place] [address] Jessica Rousseau M.B.B.S. [address] [place] [phone] 12/07/2025 1:30 PM CSTNurse Only [facility] in [place], [place] [address] [place] [phone] Jessica Rousseau M.B.B.S. [address] [place] [phone] 12/07/2025 2:00 PM CSTOffice Visit [facility] in [place], [place] [address] [place] [address] Jessica Rousseau M.B.B.S. [address] [place] [phone] 12/07/2025 3:00 PM CSTOffice Visit Department of Palliative Care in [place], [place] [address] [place] [phone] Martine Pardo B.M.B.S., B.M., B.Ch. [address] [place] [phone] documented as of this encounter Results * (ABNORMAL) CD4 Count for Immune Monitoring (10/30/2025 7:55 AM HOSE CEMENTER)Component ValueRef RangeTest MethodAnalysis TimePerformed AtPathologist TvxydoduoJK48 Total Lymph Count0.870.82 - 2.84 thou/mcL10/30/2025 4:06 PM CSTSDSC% CD3 (T Cells)56(L)58 - 86 %10/30/2025 4:06 PM CSTSDSCCD3 (T Cells)487(L)550 - 2202 cells/mcL10/30/2025 4:06 PM CSTSDSC% CD4 (T Cells)28(L)32 - 64 %10/30/2025 4:06 PM CSTSDSCCD4 (T Cells)245(L)365 - 1437 cells/[facility]10/30/2025 4:06 PM HOSE CEMENTER SDSC% CD8 (T Cells)2815 - 40 %10/30/2025 4:06 PM CSTSDSCCD8 T Btzjq728847 - 846 cells/mcL10/30/2025 4:06 PM CSTSDSC4/8 Ratio1.0>=0.9112/31/2024 4:06 PM HOSE CEMENTER SDSC% Sample Zunghrdap80%10/30/2025 4:06 PM CSTSDSC% Lymphocyte Astshmwwr04% 10/30/2025 4:06 PM CSTSDSCComment: ----ADDITIONAL INFORMATION---- This test was developed and its performance characteristics determined by [facility] in a manner consistent with CLIA requirements. This test has not been cleared or approved by the U.S. Food and Drug Administration. Specimen (Source)Anatomical Location / LateralityCollection Method / Volume Collection TimeReceived TimeBlood (Blood, Venous)10/30/2025 7:55 AM HOSE CEMENTER 10/30/2025 9:49 AM HOSE CEMENTER Narrative Authorizing ProviderResult TypeResult StatusYapeng P.A.-C.LAB BLOOD ADD-ON Final ResultPerforming OrganizationAddressCity/State/ZIP CodePhone Number [facility] [address] [place] [address] [facility] [address] [place] [address] [place] [address] documented in this encounter Visit Diagnoses Diagnosis Transplant Bone Marrow Allogeneic (HCC)- Primary Leukemia Myeloid Chronic BCR/ABL Positive Remission (HCC) documented in this encounter Additional Health Concerns InfectionOnset DateLast IndicatedResolved TimeProtective Xteynoystwt81/14/2023 3AssessmentNoted TimePHQ-9 Depression Total Score: 12007/08/2025 9:42 AM CDTdocumented as of this encounter Care Teams Team MemberRelationshipSpecialtyStart DateEnd Date Elsewhere, Pcp PCP - GeneralInternal Jxqfxpoy15/5/25documented as of this encounter
--- OUTSIDE RECORDS SUMMARY | 2025-10-30 08:10 | XMS_ITS | Encounter Summary ---
Author Organization [facility] Address [address] [place] [address] Care Team Providers Care Doctor Osteopathic Name Role Phone Elsewhere, Pcp Primary Care Provider Unavailabl e Encounter Details DateTypeDepartmentCare Team (Latest Contact Info)Iwcfciubcnp20/12/2025 8:10 AM [facility] Department of Laboratory Medicine and Pathology, [facility] in [place], [place] [address] [place] [address] Devi Roper, KARON, C.N.P., D.N.P. [address] [place] [address] Transplant Stem Cell (HCC); Leukemia Myeloid Chronic [...] RecordedIn the past 12 months has the [employer], gas, oil, or water [employer] threatened to shut off services in your home?11/01/2025Postpartum DepressionAnswerDate RecordedPHQ-9 Total Score (max 27)12007/08/2025Housing StabilityAnswerDate RecordedWhat is your living situation today?I have a steady place to live11/01/2025EducationAnswerDate RecordedWhat is the highest level of school you have completed or the highest degree you have received?Some college, no pazyct0904/24/2019CommentsNoSex and Gender InformationValueDate RecordedSex Assigned at SfdiqKbdrvi86/07/2019 8:37 PM CORRESPONDENCE SECTION SUPERVISOR Legal KorZnauhh32/02/2017 2:43 PM CSTGender DyxkszidWkksgq13/07/2019 8:37 PM CORRESPONDENCE SECTION SUPERVISOR Sexual OrientationChoose not to xtycfqdj49/17/2021 3:46 PM CDTdocumented as of this encounter Plan of Treatment DateTypeDepartmentCare Team (Latest Contact Info)Vywconfetop37/29/2025 9:00 AM CSTOffice Visit Department of Obstetrics and Gynecology in [place], [place] [address] [place] [phone] Alice Linares M.D. [address] [place] [phone] 11/17/2025 11:00 AM CSTTelemedicine Department of Palliative Care in [place], [place] [address] [place] [phone] Yary Landa D.O. [address] [place] [phone] 12/04/2025 1:30 PM CSTClinical Communication Virtual Review in [place], [place] 200 [place] [address] 12/07/2025 8:10 AM CSTLab Department of Laboratory Medicine and Pathology, [facility] in [place], [place] [address] [place] [phone] Jessica Rousseau M.B.B.S. [address] [place] [phone] 12/07/2025 9:15 AM CSTAppointment Outpatient Procedure Center in [place], [place] [address] [place] [phone] Jessica Rousseau M.B.B.S. [address] [place] [phone] 12/07/2025 11:00 AM CSTDiagnostic Division of Pulmonary Medicine in [place], [place] [address] [place] [phone] Jessica Rousseau M.B.B.S. [address] [place] [phone] 12/07/2025 1:00 PM CSTOffice Visit [facility] [place] Transplantation and Clinical Regeneration in [place], [place] [address] [place] [phone] Jessica Rousseau M.B.B.S. [address] [place] [phone] 12/07/2025 1:30 PM CSTNurse Only [facility] [place] Transplantation and Clinical Regeneration in [place], [place] [address] [place] [address] Jessica Rousseau M.B.B.S. [address] [place] [phone] 12/07/2025 2:00 PM CSTOffice Visit [facility] [place] Transplantation and Clinical Regeneration in [place], [place] [address] [place] [address] Jessica Rousseau M.B.B.S. [address] [place] [phone] 12/07/2025 3:00 PM CSTOffice Visit Department of Palliative Care in [place], [place] [address] [place] [phone] Martine Pardo B.M.B.S., B.M., B.Ch. 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) CD4 T-CELL COUNT, RQbbasaq65/12/2025 7:55 AM CORRESPONDENCE SECTION SUPERVISOR 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) LACTATE DEHYDROGENASE (LD), IIyypqdt93/12/2025 7:55 AM CORRESPONDENCE SECTION SUPERVISOR Transplant Stem Cell (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) documented in this encounter Results * (ABNORMAL) CD4 Count for Immune Monitoring (10/30/2025 7:55 AM CORRESPONDENCE SECTION SUPERVISOR)Component ValueRef RangeTest MethodAnalysis TimePerformed AtPathologist PmcigraxvOO98 Total Lymph Count0.870.82 - 2.84 thou/[facility]10/30/2025 4:06 PM CSTSDSC% CD3 (T Cells)56(L)58 - 86 %10/30/2025 4:06 PM CSTSDSCCD3 (T Cells)487(L)550 - 2202 cells/[facility]10/30/2025 4:06 PM CSTSDSC% CD4 (T Cells)28(L)32 - 64 %10/30/2025 4:06 PM CSTSDSCCD4 (T Cells)245(L)365 - 1437 cells/[facility]10/30/2025 4:06 PM CORRESPONDENCE SECTION SUPERVISOR SDSC% CD8 (T Cells)2815 - 40 %10/30/2025 4:06 PM CSTSDSCCD8 T Ilqcn948981 - 846 cells/[facility]10/30/2025 4:06 PM CSTSDSC4/8 Ratio1.0>=0.912/10/2025 4:06 PM CORRESPONDENCE SECTION SUPERVISOR SDSC% Sample Rmjxwopru62%10/30/2025 4:06 PM CSTSDSC% Lymphocyte Dgszaugbe22% 10/30/2025 4:06 PM CSTSDSCComment: ----ADDITIONAL INFORMATION---- This test was developed and its performance characteristics determined by [facility] in a manner consistent with CLIA requirements. This test has not been cleared or approved by the U.S. Food and Drug Administration. Specimen (Source)Anatomical Location / LateralityCollection Method / Volume Collection TimeReceived TimeBlood (Blood, Venous)10/30/2025 7:55 AM CORRESPONDENCE SECTION SUPERVISOR 10/30/2025 9:49 AM CORRESPONDENCE SECTION SUPERVISOR Narrative Authorizing ProviderResult TypeResult StatusYapeng Phill MandujanoAShahrzadLAB BLOOD ADD-ON Final ResultPerforming OrganizationAddressCity/State/ZIP CodePhone Number [facility] [address] [place] [address] [facility] [address] [place] [address] [place] [address] * BCR/ABL1, p210, mRNA Detection, Reverse Starting Gate Driver-PCR (RT-PCR), Quantitative, Monitoring Chronic Myeloid Leukemia (CML) (10/30/2025 7:55 AM CORRESPONDENCE SECTION SUPERVISOR)ComponentValueRef RangeTest MethodAnalysis TimePerformed AtPathologist SignatureSpecimen TypePeripheral blood11/02/2025 4:41 PM CSTDTLBCR/ABL1, p210 Resultsee rslxmglyflrofm22/15/2025 4:41 PM CSTDTLInterpretationPeripheral blood, BCR/ABL1 mRNA level [...] level was evaluated using a quantitative, reverse early childhood specialist PCR. The analytical sensitivity of this assay [...] all possible fusion forms. Please contact the [facility] at [phone] with questions or if additional testing is required. See the [facility] Interpretive Handbook for method details. [...] and its performance characteristics determined by [facility] in a manner consistent with CLIA requirements. This test has not been cleared or approved by the U.S. Food and Drug Administration. Specimen (Source)Anatomical Location / LateralityCollection Method / Volume Collection TimeReceived TimeBlood (Blood, Venous)10/30/2025 7:55 AM CORRESPONDENCE SECTION SUPERVISOR 10/30/2025 8:25 AM CORRESPONDENCE SECTION SUPERVISOR Narrative Authorizing ProviderResult TypeResult StatusKicarlotta Roper APRN, C.N.P., D.N.P.LAB BLOOD NON ADD-ONFinal ResultPerforming OrganizationAddress City/State/ZIP CodePhone Number [facility] [address] [place] [address], [facility] 200 [facility] [address] [place] [address] * Chimerism Transplant Sorted Cells (10/30/2025 7:55 AM CORRESPONDENCE SECTION SUPERVISOR)ComponentValueRef RangeTest MethodAnalysis TimePerformed AtPathologist SignatureSpecimen Type Peripheral blood11/03/2025 1:30 PM CSTDTLInterpretationPeripheral blood, chimerism analysis: CD3-positive T-cells: ??The CD3-positive fraction contains approximately 95% donor DNA and approximately 5% recipient DNA. JW94-rkhshklx myeloid cells: ??The JE52-tryimorw fraction contains approximately 100% donor DNA and [...] purity of 95% or greater. Markers analyzed: O0V5046, F8V1598, FGA, SE33, vWA, D21S11, K94T9854, C17S3266, K79Q254, D18S51, O7V204, L2D4446, CSF1PO, A1P045, S94S522, N44Z636, TPOX, P26Q667, L5P079 and B5G9995 11/03/2025 1:30 PM CSTDTLComment: ----ADDITIONAL INFORMATION---- Method summary - Chimerism: ??Genomic DNA was extracted and the specimen evaluated for the percentages of donor and recipient DNA using a PCR-based method that amplifies several highly polymorphic short tandem repeats (see [facility] Interpretive Handbook for method details). This test was developed and its performance characteristics determined by [facility] in a manner consistent with CLIA requirements. This test has not been cleared or approved by the U.S. Food and Drug Administration. Specimen (Source)Anatomical Location / LateralityCollection Method / Volume Collection TimeReceived TimeBlood (Blood, Peripheral Draw)10/30/2025 7:55 AM CORRESPONDENCE SECTION SUPERVISOR 10/30/2025 8:24 AM CORRESPONDENCE SECTION SUPERVISOR Narrative Authorizing ProviderResult TypeResult StatusKicarlotta Roper APRN C.N.P., D.N.P.LAB GENETIC TESTINGFinal ResultPerforming OrganizationAddress City/State/ZIP CodePhone Number [facility] [address] [place] [address], [place] [facility] [address] [place] [address] * CMV DNA Detect / Quant, Plasma (10/30/2025 7:55 AM CORRESPONDENCE SECTION SUPERVISOR)ComponentValueRef Range Test MethodAnalysis TimePerformed AtPathologist SignatureCMV DNA Detect/Quant, PUndetectedUndetected IU/mL10/30/2025 11:09 PM CSTSDSCComment: Result in log IU/mL is Undetected. ----ADDITIONAL INFORMATION---- The quantification range of this assay is 35 to 10,000,000 IU/mL (1.54 log to 7.00 log IU/mL). Testing was performed using the lucrecia CMV test ([employer] Specimen (Source)Anatomical Location / LateralityCollection Method / Volume Collection TimeReceived TimeBlood (Blood, Venous)10/30/2025 7:55 AM CORRESPONDENCE SECTION SUPERVISOR 10/30/2025 10:07 AM CORRESPONDENCE SECTION SUPERVISOR Narrative Authorizing ProviderResult TypeResult StatusDevi Roper APRN, C.N.P., D.N.P.LAB MICROBIOLOGY - BLOOD ORDERABLESFinal ResultPerforming Organization AddressCity/State/ZIP CodePhone Number [facility] [address] [place] [address] [facility] [address] [place] [address] [place] [address] * LD (Lactate Dehydrogenase) (10/30/2025 7:55 AM CORRESPONDENCE SECTION SUPERVISOR)ComponentValueRef RangeTest MethodAnalysis TimePerformed AtPathologist SignatureHospital Deanna JT876127 - 222 U/L112/31/2024 9:11 AM CSTDTLSpecimen (Source)Anatomical Location / LateralityCollection Method / VolumeCollection TimeReceived TimeBlood (Blood, Venous)10/30/2025 7:55 AM CST10/30/2025 8:42 AM CORRESPONDENCE SECTION SUPERVISOR Narrative Authorizing ProviderResult TypeResult StatusDevi Roper APRN, C.N.P., D.N.P.LAB BLOOD NON ADD-ONFinal ResultPerforming OrganizationAddress City/State/ZIP CodePhone Number [facility] 200 [place] [address], [place] [facility] [address] [place] [address] documented in this encounter Visit Diagnoses Diagnosis Transplant Stem Cell (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
--- OUTSIDE RECORDS SUMMARY | 2025-10-30 09:00 | XMS_ITS | Encounter Summary ---
Author Organization [facility] Address [address] [place] [address] Care Team Providers Care Cyber Intelligence Analyst Name Role Phone Elsewhere, Pcp Primary Care Provider Unavailabl e Reason for Referral * Outpatient (Routine) - ClosedSpecialtyDiagnoses / ProceduresReferred By ContactReferred To ContactPalliative Medicine Diagnoses Acute Cystitis Without Hematuria Leukemia Myeloid Chronic BCR/ABL Positive Not Having Achieved Remission (HCC) Meghan Osorio M.D. 200 [place] [address] Phone: tel: fax: [facility] Referral IDStatusReasonStart DateExpiration DateVisits RequestedVisits [id number]/12/20256/ Scheduling Instructions Please RN visit today at 10:00 am PRINTER * Outpatient (Routine) - AuthorizedSpecialtyDiagnoses / ProceduresReferred By ContactReferred To ContactPalliative Medicine Meghan Osorio M.D. [address] [place] [phone] Phone: tel: fax: [facility] Referral IDStatusReasonStart DateExpiration DateVisits RequestedVisits [id number]/12/20256/ Scheduling Instructions Coordinate with BMT visits same day PRINTER Reason for Visit * Outpatient (Routine) - ClosedSpecialtyDiagnoses / ProceduresReferred By ContactReferred To ContactIntermountain Healthcareliative Medicine Meghan Osorio M.D. [address] [place] [phone] Phone: tel: fax: Adore Calero M.D. [address] [place] [phone] Phone: tel: fax: Referral IDStatusReasonStart DateExpiration DateVisits RequestedVisits [id number]/23/20253/ Encounter Details DateTypeDepartmentCare Team (Latest Contact Info)Tfgpidsytbh78/12/2025 9:00 AM CSTOffice Visit Department of Palliative Care in [place], [place] [address] [place] [phone] Meghan Osorio M.D. [address] [place] [phone] Acute Cystitis Without Hematuria (Primary Dx); Leukemia [...] before you got the money to buymore.Patient mofekxfc93/25/2025Within the past 12 months, the food you bought just didn't last and you didn't have money to get more.Patient gdouzrkr90/25/2025PRAPARE - TransportationAnswerDate RecordedIn the past 12 months, has lack of transportation kept you from medical appointments or from getting medications?No08/13/2025In the past 12 months, has lack of transportation kept you from meetings, work, or from getting things needed for daily living?No08/13/2025HC UtilitiesAnswerDate RecordedIn the past 12 months has the [employer], gas, oil, or water company threatened to shut off services in your home?Patient /25/2025Postpartum DepressionAnswerDate RecordedPHQ- 9 Total Score (max 27)12007/08/2025Housing StabilityAnswerDate RecordedWhat is your living situation today?I have a steady place to live08/13/2025Education AnswerDate RecordedWhat is the highest level of school you have completed or the highest degree you have received?Some college, no ekjpxw0804/24/2019 CommentsNoSex and Gender InformationValueDate RecordedSex Assigned at Fgdnsw2212/26/2018 8:37 PM CSTLegal NxdSidoan35/02/2017 2:43 PM CSTGender Identity Gszono0612/26/2018 8:37 PM CSTSexual OrientationChoose not to fjqujuuj75/17/2021 3:46 PM CDTdocumented as of this encounter Last Filed Vital Signs Vital SignReadingTime TakenCommentsBlood Pressure--Pulse--Temperature-- Respiratory Rate--Oxygen Ehmxumoygm26%10/30/2025 8:54 AM CSTInhaled Oxygen Concentration--Weight--Height--Body Mass Index--documented in this encounter Progress Notes * Meghan Osorio M.D. - 10/30/2025 9:00 AM CST [facility] Progress Note Patient: Radha [...] recent follow-up in transplant Clinic on 10/26. Lindsay to have low likelihood of GVHD. She [...] about how she will get home to [place] driving herself. She wonders if she needs [...] controlled substance prescribing: Chemotherapy-induced peripheral neuropathy [place] [employer] Review: We have reviewed the patient's record in the [place] prescription monitoring program 10/30/2025. Opioid Toxicity Review: We have reviewed the risks of opioid therapy and completed an assessment oftoxicities. Opioid Aberrant Use Concerns: None Opioid Risk Score: Last Opioid Risk Tool charting Flowsheet Row Comprehensive Visit from 04/21/2025 in Department of Palliative Care in [place], [place] ORT Total Score (max 26) 2 [...] spent was 45 minutes. Lisa Magdaleno M.D. PRINTER * Renita Christensen R.N. - 10/30/2025 9:00 [...] and Quality educational resources Education provided:Aromatherapy Safety [id number] , Essential Oil Patient Education [id number] , and Auricular Acupressure Intro Flyer [id number] Patient verbalized understanding of safe use of aromatherapy. Visit and plan was discussed with Dr. Chow Encouraged use of essential oils for nausea today. Advised Radha to reach out with any further questions or concerns. Renita Christensen R.N. Palliative Care Nurse [facility] PRINTER documented in this encounter Plan of Treatment DateTypeDepartmentCare Team (Latest Contact Info)Kamjhgzaeqa84/29/2025 9:00 AM CSTOffice Visit Department of Obstetrics and Gynecology in [place] [address] [place] [phone] Alice Linares M.D. [address] [place] [phone] 11/17/2025 11:00 AM CSTTelemedicine Department of Palliative Care in [place], [place] [address] [place] [phone] Yary Landa D.O. [address] [place] [phone] 12/04/2025 1:30 PM CSTClinical Communication Virtual Review in [place], [place] 200 [place] [address] 12/07/2025 8:10 AM CSTLab Department of Laboratory Medicine and Pathology, [facility] in [place], [place] [address] [place] [phone] Jessica Rousseau M.B.B.S. [address] [place] [phone] 12/07/2025 9:15 AM CSTAppointment Outpatient Procedure Center in [place], [place] [address] [place] [phone] Jessica Rousseau M.B.B.S. [address] [place] [phone] 12/07/2025 11:00 AM CSTDiagnostic Division of Pulmonary Medicine in [place], [place] [address] [place] [phone] Jessica Rousseau M.B.B.S. [address] [place] [phone] 12/07/2025 1:00 PM CSTOffice Visit Pedro Aravind [facility] for Transplantation and Clinical Regeneration in [place], [place] [address] [place] [address] Jessica Rousseau M.B.B.S. [address] [place] [phone] 12/07/2025 1:30 PM CSTNurse Only [facility] Transplantation and Clinical Regeneration in [place], [place] [address] [place] [phone] Jessica Rousseau M.B.B.S. [address] [place] [phone] 12/07/2025 2:00 PM CSTOffice Visit [facility] Transplantation and Clinical [facility] in [place], [place] [address] [place] [phone] Jessica Rousseau M.B.B.S. [address] [place] [phone] 12/07/2025 3:00 PM CSTOffice Visit Department of Palliative Care in [place], [place] [address] [place] [phone] Martine Pardo B.M.B.S., B.M., B.Ch. [address] [place] [phone] NameTypePriorityAssociated DiagnosesOrder SchedulePalliative Care office visit (clinic)Outpatient [...] Additional Health Concerns InfectionOnset DateLast IndicatedResolved TimeProtective Mvarbaztxga83/14/2023 03/02/2023ssessmentNoted TimePHQ-9 Depression Total Score: 9:42 AM CDTdocumented as of this encounter Care Teams Team MemberRelationshipSpecialtyStart DateEnd Date Elsewhere, Pcp PCP - GeneralInternal Jadkkjsd27/5/25documented as of this encounter
--- OUTSIDE RECORDS SUMMARY | 2025-10-30 10:00 | XMS_ITS | Encounter Summary ---
Author Organization [facility] Address [address] [place] [address] Care Team Providers Care Core Assembly Supervisor Name Role Phone Elsewhere, Pcp Primary Care Provider Unavailabl e Reason for Visit * Outpatient (Routine) - ClosedSpecialtyDiagnoses / ProceduresReferred By ContactReferred To ContactPalliative Medicine Diagnoses Acute Cystitis Without Hematuria Leukemia Myeloid Chronic BCR/ABL Positive Not Having Achieved Remission (HCC) Meghan Osorio M.D. 200 [place] [address] Phone: tel: fax: [facility] Referral IDStatusReasonStart DateExpiration DateVisits RequestedVisits [id number]/12/20256/ Encounter Details DateTypeDepartmentCare Team (Latest Contact Info)Vfmqynemxin51/12/2025 10:00 AM CSTClinical Support Department of Palliative Care in [place], [place] [address] [place] [phone] Meghan Osorio M.D. [address] [place] [address] Lucy Boyd R.N., PN [address] [place] [address] Nausea And Vomiting (Primary Dx) Social History Tobacco UseTypesPacks/DayYears UsedDateSmoking Tobacco: NeverSmokeless Tobacco: NeverAlcohol UseStandard Drinks/WeekCommentsNever0 (1 standard drink = 0.6 oz pure alcohol)Humiliation, Afraid, Rape, and Kick questionnaireAnswerDate RecordedWithin the last year, have you been afraid of your partner or ex-partner?No08/11/2025Within the last year, have you been humiliated or emotionally abused in other ways by your partner or ex-partner?08/11/2025 Within the last year, have you been kicked, hit, slapped, or otherwise physically hurt by your partner or ex-partner?No08/11/2025Within the last year, have you been raped or forced to have any kind of sexual activity by your part ner or ex-partner?No08/11/2025Hunger Vital SignAnswerDate RecordedWithin the past 12 months, you worried that your food would run out before you got the money to buymore.Patient vlscygiq20/25/2025Within the past 12 months, the food you bought just didn't last and you didn't have money to get more.Patient rwbexshb44/25/2025PRAPARE - TransportationAnswerDate RecordedIn the past 12 months, has lack of transportation kept you from medical appointments or from getting medications?No08/13/2025In the past 12 months, has lack of transportation kept you from meetings, work, or from getting things needed for daily living?No08/13/2025HC UtilitiesAnswerDate RecordedIn the past 12 months has the [employer], gas, oil, or water [employer] threatened to shut off services in your home?Patient ulposugh92/25/2025Postpartum DepressionAnswerDate RecordedPHQ- 9 Total Score (max 27)Housing StabilityAnswerDate RecordedWhat is your living situation today?I have a steady place to live08/13/2025Education AnswerDate RecordedWhat is the highest level of school you have completed or the highest degree you have received?Some college, no njtios3304/24/2019 CommentsNoSex and Gender InformationValueDate RecordedSex Assigned at Dfuxae0212/26/2018 8:37 PM CSTLegal QpnEejiuo60/02/2017 2:43 PM CSTGender Identity Gnlego5712/26/2018 8:37 PM CSTSexual OrientationChoose not to hzdyzuzw81/17/2021 3:46 PM CDTdocumented as of this encounter Nursing Notes * Lucy Boyd R.N., [facility] - 10/30/2025 10:00 AM CST PALLIATIVE CARE NURSING VISIT Patient Name: Radha Martinez Age: 35 y.o. 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 I introduced the patient to auricular acupressure as a healing modality for Nausea management. Prior to initiating auricular acupressure, safety precautions were reviewed including skin integrity, and allergies. Patient verbalized understanding of rationale for auricular acupressure for symptom management and verbal consent was obtained to proceed with the session. ASSESSMENT Ear (s) used: right ear Auricular protocol selected: Upper Gastrointestinal: Ramos Men, Stomach, Esophagus, Liver, Spleen Additional Acupoints used: None Device used: Titanium Ear Beads Number of beads placed: 5 RECOMMENDATION/PLAN Stimulation instructions provided: Gentle finger pressure several times/day Advised devices should be removed in 3-6 days or if pain, soreness, swelling, pinching, redness, heat, or itching develop. Reviewed most common auricular acupressure risks including local skin irritation/discomfort, mild tenderness or pain at the application site, and itching. Patient verbalized understanding of the above. Auricular Acupressure Treatment Sheet [id number] were provided and reviewed with the patient. Follow up recommendations or education provided on self care. Visit and plan was discussed with Dolores Scott DNP. Patient is being seen for follow up visits in by Palliative providers. Lucy Boyd R.N., PN Palliative Care Nurse [facility] TABLE SORTER documented in this encounter Miscellaneous Notes * Addendum Note - Lucy Boyd R.N., [facility] - 10/30/2025 10:00 AM CSTAddended by: LUCY BOYD on: 10/30/2025 10:46 AM Modules accepted: Level of Service TABLE SORTER documented in this encounter Plan of Treatment DateTypeDepartmentCare Team (Latest Contact Info)Gzfgsbqdqpu31/29/2025 9:00 AM CSTOffice Visit Department of Obstetrics and Gynecology in [address] [phone] Alice Linares M.D. [address] [place] [phone] 11/17/2025 11:00 AM CSTTelemedicine Department of Palliative Care in [address] [phone] Yary Landa D.O. [address] [place] [phone] 12/04/2025 1:30 PM CSTClinical Communication Virtual Review in [address] [phone] 12/07/2025 8:10 AM CSTLab Department of Laboratory Medicine and Pathology, [facility], in [address] [phone] Jessica Rousseau M.B.B.S. [address] [place] [phone] 12/07/2025 9:15 AM CSTAppointment Outpatient Procedure Center in [address] [address] Jessica Rousseau M.B.B.S. [address] [place] [address] 12/07/2025 11:00 AM CSTDiagnostic Division of Pulmonary Medicine in [place], [place] [address] [place] [address] Jessica Rousseau M.B.B.S. [address] [place] [phone] 12/07/2025 1:00 PM CSTOffice Visit [facility] for Trans[facility] Clinical Regeneration in [place], [place] [address] [place] [address] Jessica Rousseau M.B.B.S. [address] [place] [phone] 12/07/2025 1:30 PM CSTNurse Only [facility] for Transplantation and Clinical Regeneration in [place], [place] [address] [place] [address] Jessica Rousseau M.B.B.S. [address] [place] [phone] 12/07/2025 2:[address] [facility] Transplantation and Clinical Regeneration in [place], [place] [address] [place] [address] Jessica Rousseau M.B.B.S. [address] [place] [phone] 12/07/2025 3:00 PM CSTOffice Visit Department of Palliative Care in [place], [place] [address] [place] [address] Martine Pardo B.M.B.S., April., B.Ch. [address] [place] [phone] documented as of this encounter Visit Diagnoses Diagnosis Nausea And Vomiting- Primary documented in this encounter Additional Health Concerns InfectionOnset DateLast IndicatedResolved TimeProtective Vaykrwiwkzw53/14/2023 03/02/2023ssessmentNoted TimePHQ-9 Depression Total Score: 9:42 AM CDTdocumented as of this encounter Care Teams Team MemberRelationshipSpecialtyStart DateEnd Date Elsewhere, Pcp PCP - GeneralInternal Fektsulp94/5/25documented as of this encounter
--- OUTSIDE RECORDS SUMMARY | 2025-11-01 11:36 | XMS_ITS | Encounter Summary ---
Author Organization [facility] Address [address] [place] [address] Care Team Providers Care Director Of Quality Control Name Role Phone Elsewhere, Pcp Primary Care Provider Unavailabl e Reason for Referral * Outpatient (Routine) - AuthorizedSpecialtyDiagnoses / ProceduresReferred By ContactReferred To ContactObstetrics and Gynecology Diagnoses Pain Left Lower Quadrant Whit Werner M.D. [address] [place] [address] Phone: tel: fax: [facility] Referral IDStatusReasonStart DateExpiration DateVisits RequestedVisits [id number] Scheduling Instructions Resident, or ARTIST SCIENTIFIC/PA pelvic pain clinic whichever is quicker ICIAN ALLERGIST IMMUNOLOGIST Reason for Visit * ReasonCommentsAbdominal PainBack Pain Encounter Details DateTypeDepartmentCare Team (Latest Contact Info)Lycycioghsb46/14/2025 11:36 AM PHYSICIAN ALLERGIST IMMUNOLOGIST - 11/03/2025 5:36 PM CSTHospital Encounter [facility], [facility], [facility], Tenth Floor [address] [place] [address] Marry Jarvis APRN, C.N.P., D.N.P. [address] [place] [phone] Felix Chavez M.D. [address] [place] [phone] Abdominal Pain (Primary Dx); Pain Chest; Pain Left Lower Quadrant Discharge Disposition: Home or Self Care Social [...] your home?No11/01/2025Postpartum DepressionAnswerDate RecordedPHQ-9 Total Score (max 27)1208Housing StabilityAnswerDate RecordedWhat is your living situation today?I have a steady place to live11/01/2025EducationAnswerDate RecordedWhat is the highest level of school you have completed or the highest degree you have received?Some college, no oybibd3004/24/2019CommentsNoSex and Gender InformationValueDate RecordedSex Assigned at XqxzpSawnyu50/07/2019 8:37 PM PHYSICIAN ALLERGIST IMMUNOLOGIST Legal LlnTtawfj20/02/2017 2:43 PM CSTGender NsoshogsKdijyn17/07/2019 8:37 PM PHYSICIAN ALLERGIST IMMUNOLOGIST Sexual OrientationChoose not to eoeyzwgp38/17/2021 3:46 PM CDTdocumented as of this encounter Last Filed Vital Signs Vital SignReadingTime TakenCommentsBlood Fifgyhrt748/9311/03/2025 2:41 PM PHYSICIAN ALLERGIST IMMUNOLOGIST Sdezg425211/03/2025 2:41 PM QJMKmkkcusyrpp45.7 ??C (98.1 ??F)11/03/2025 2:41 PM CSTRespiratory Bkiy181201/04/2025 2:41 PM CSTOxygen Fwzbvoqgmo35%11/03/2025 2:41 PM CSTInhaled Oxygen Concentration--Xdmgsj814 kg (238 lb 5.1 oz)11/03/2025 10:01 AM ZZLQwuuyh746 cm (5' 8.11)11/01/2025 7:46 PM CSTBody Mass Index36.12 11/01/2025 7:46 PM CSTdocumented in this encounter Discharge Summaries * Whit Werner M.D. - 11/03/2025 3:30 PM CST DISCHARGE SUMMARY BRIEF OVERVIEW Hospital: [facility] Discharge Provider: Felix Chavez M.D. Primary Team: [facility] Primary Care Providers: Elsewhere, Pcp (General) No address on file Primary Care Provider Phone Number: None Primary Care Provider Fax Number: None Admission Date: 11/01/2025 Discharge Date: 11/03/2025 PRINCIPAL DIAGNOSIS Abdominal Pain SECONDARY DIAGNOSES Principal Problem: Abdominal Pain Resolved Problems: * No resolved hospital problems. * DISCHARGE DISPOSITION Home or Self Care [1] ACTIVE ISSUES REQUIRING FOLLOW UP Follow up appointments with gastroenterology, palliative medicine, gynecology and primary care physician. The appointments with gastroenterology and primary care physician are in the process of getting scheduled. OUTPATIENT FOLLOW UP Scheduled Appointments 11/16/2025 9:00 AM Alice Linares M.D. Gynecology 12/04/2025 1:30 PM RST PAL PM MILAN INTAKE VISIT Admitting/Central Scheduling 12/07/2025 8:10 AM LAB BLOOD [facility] Laboratory Medicine 12/07/2025 9:15 AM ROOM [facility] 07 [place] 704 Procedural 12/07/2025 11:00 AM PFT LAB 01 [address] PUL Pulmonary Medicine 12/07/2025 1:00 PM PHR TXP PHARMACIST BRX [facility] Pharmacy 12/07/2025 1:30 PM TXP BMT NURSE 02 [facility] Transplant Blood and Marrow 12/07/2025 2:00 PM Jessica Rousseau M.B.B.S. Transplant Blood and Marrow 12/07/2025 3:00 PM Martine Pardo B.M.B.S., B.M., B.Ch. Palliative Medicine For appointment details refer to your Patient Appointment Guide. TEST RESULTS PENDING AT DISCHARGE Pending Labs None DETAILS OF HOSPITAL STAY REASON FOR ADMISSION Pain Chest Abdominal Pain HOSPITAL COURSE Ms. Radha Martinez is a 35 y.o. 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 Transvaginal US with heterogenous myometrium. Patient here for nausea and same persistent abdominal pain. She was also reporting chest pain, workup for which was unremarkable in the ED. Patient is followed by palliative medicine as outpatient. Patient was seen by palliative medicine as inpatient and they recommended a short course of Celecoxib 5 days 100 mg BID as per their recs). She has follow up with palliative medicine scheduled for 12/07/2025, but they will move this up depending on patient's availability. Gynecology deferred assessment of heterogeneous appearing myometrium and she has follow up with them on 11/16. Patient able to eat meals okay during hospital stay. Initially wanted to do a GI series imaging study but given that she had a recent enterography and given that this is the same pain, radiology felt it would very low yield. Patient was agreeable to discharging with follow up with gastroenterology (she is already established with them for the same pain). This was requested and will be scheduled in the future. Patient was noted to have high blood pressure during her hospital stay, amlodipine was prescribed. A follow up with local primary care physician was requested to manage this further. CONSULTS ORDERED DURING THIS ADMISSION IP CONSULT TO PALLIATIVE CARE Procedures Performed : NA Pertinent Diagnostic Results : NA CONDITION AT DISCHARGE stable Discharge instructions were provided to the patient and caregiver(s). Total time spent in discharge services today: 30 minutes. Whit Werner MD Hematology-oncology fellow PGY4 Cosigned by Felix Chavez M.D. at 11/03/2025 4:47 PM PHYSICIAN ALLERGIST IMMUNOLOGIST ICIAN ALLERGIST IMMUNOLOGIST ICIAN ALLERGIST IMMUNOLOGIST documented in this encounter Discharge Instructions * Discharge Instructions* Cecile Ortiz - 11/01/2025 4:29 PM PHYSICIAN ALLERGIST IMMUNOLOGIST You were discharged from the [facility] Service. Please identify this service name if you call with questions after hospitalization. ICIAN ALLERGIST IMMUNOLOGIST ICIAN ALLERGIST IMMUNOLOGIST ICIAN ALLERGIST IMMUNOLOGIST documented in this encounter Medications at Time of Discharge MedicationSigDispense QuantityRefillsLast FilledStart DateEnd Date naloxone (Narcan) 4 mg/actuation nasal spray [place] one device into nostril upon signs of opioid overdose. Call 911. Repeat with second device inthe other nostril if no response within 2-3 minutes. Use 1 spray in 1 nostril. Repeat with second device in other nostril after 2-3 minutes if no or minimal response. 2 each 10/31/2025 amLODIPine (Norvasc) 5 mg tablet Take 1 tablet (5 mg total) by mouth daily. 90 tablet buprenorphine (Butrans) 5 mcg/hour Indications:Chronic Pain/Nonacute PainPlace 1 patch on the skin once a week Indication: Chronic Pain/Nonacute Pain. 4 patch 10/12/2025 carboxymethylcellulose (Refresh Plus) 0.5 % ophthalmic solution Administer 1 drop into both eyes 3 (three) times a day as needed for dry eyes. cefdinir (Omnicef) 300 mg capsule Indications:PyuriaTake 1 capsule (300 mg total) by mouth 2 (two) times a day before morning and evening meals for 7 days. 14 capsule / celecoxib (CeleBREX) 100 mg capsule Take 1 capsule (100 mg total) by mouth 2 (two) times a day. 10 capsule cholecalciferol (Vitamin D3) 50 mcg (2,000 [...] 2 (two) times a day. 60 tablet documented as of this encounter Progress Notes * Monica Tolbert M.D., M.S. - 11/03/2025 3:08 PM CST [facility] Palliative Medicine APC Attestation Radha Martinez is a 35-year-old woman from [place], [place] CML s/p MUD allo stem cell transplant (12/10/2024) who is well-known to palliative care team, admitted for new onset LLQ abdominal pain of unknown etiology. Palliative Care was consulted for pain and symptom management. She describes her pain as deeper in location/sensation. Is reproducible on deep palpation. Agree with plan for Medical Oncology Physician follow-up as clinic since unable to be seen as inpatient. Alternative etiology is potentially muscular; would consider Pain Medicine evaluation to see if a trigger point injection is possible. Would avoid opioids in the setting of likely non-cancer related pain and while evaluating etiology. I have seen and evaluated the patient as part of a collaborative visit with Antonina Delarosa APRN/TERESE (ARTIST SCIENTIFIC Fellow). I have reviewed the pertinent history and discussed the impression and plan with the APC. I agree with the history, examination, impression, and recommendations as documented in today's note from the APC except as documented. Thank you for this consult. We will continue to follow. For questions about this consult from 8:00 AM - 4:30 PM today, please contact me via the service pager, [phone]. For after hours concerns, pleasecontact our service through the following pager: Palliative Medicine [facility]) - [phone]. Monica Tolbert M.D., M.S., M.F.A. Machine Fancy Stitcheryouth care professional Division of Community Internal Medicine, Geriatrics, and Palliative Care ICIAN ALLERGIST IMMUNOLOGIST * Carolyn Girard RKatalinaN., [facility] - 11/03/2025 1:51 PM CST Palliative Care Introduction I introduced the patient and/or family to role of palliative medicine in the care of patients with serious illness, namely expertise in pain and non-pain symptom management, psychosocial, and spiritual support for patients and families as well as assistance in broader medical decision making. Palliative Medicine Clinic team sheet and contact information was reviewed with the patient. Chief Complaint/Purpose of Visit Patient was here for patient education. Patient was referred by Antonina Delarosa APRN I introduced the patient to acupressure as a healing modality for Pain management. Prior to initiating acupressure, safety precautions were reviewed including platelet counts and skin integrity. Patient verbalized understanding of rationale for acupressure for symptom management and agreed to proceed with the session. ASSESSMENT Pre acupressure assessment: Appeared uncomfortable Pressure points used during session were: P6 , Yintang, LI4, and Liv3. Post acupressure assessment: Appeared more relaxed RECOMMENDATION/PLAN Patient Education: Education provided to patient For details involving the learning needs assessment, teaching methods used, and evaluation of learning, please refer to the patient education flowsheet. Education topics covered in this visit include: Other Relaxation strategies Educational materials provided were: Acupressure [id number] and Using Relaxation Skills for your Symptoms [id number] Patient verbalized understanding of location of pressure points, frequency of repetition, and when to avoid acupressure for symptom management. Patient was educated and encouraged to use acupressure points multiple times per day for best results. Acupressure Booklet [id number] were provided and reviewed with the patient for continued use of acupressure for symptom management. Visit and plan was discussed with KARON Bland R.N., [facility] Palliative Care Nurse Center of Palliative [facility] ICIAN ALLERGIST IMMUNOLOGIST ICIAN ALLERGIST IMMUNOLOGIST * Mary Peacock - 11/03/2025 11:26 AM CST Palliative Medicine Music Therapy Assessment Note Patient: Radha Martinez Age:35 y.o. Location: [place] [address] Date of Encounter: 11/03/2025 Time of Encounter: 10am Visit Duration: 10 min Reason(s) of encounter: Introduction of services; Ms. Martinez expressed familiarity with music therapy from previous hospitalization, and states that she did not find it particularly helpful. She politely declines at this time. Plan / Recommendations: Music therapy will continue to support Ms. Martinez as a part of the Palliative Medicine plan of care. Mary Peacock [facility] Palliative Care Music Therapist ICIAN ALLERGIST IMMUNOLOGIST * Felix Chavez M.D. - 11/03/2025 11:26 AM CST I visited and evaluated the patient. I do agree with the note of Whit Werner M.D. I discussed the evaluation with the patient and the BMT team in detail. Radha Martinez is a 35 y.o. female with history of CML s/p MUD allogeneic PBSCT 12/10/24.She has had a recurrent abdominal pain and has had extensive evaluation over the last 6 months. Shewas admitted this time from the emergency room for the management of nausea and abdominal pain. Shealso had some chest pain. Workup so far has been unrevealing. She is followed in palliative Medicine for symptom manage. She is day +328. Her chest discomfort and nausea have resolved. She is still having abdominal pain,but this has significantly improved. She is scheduled for small-bowel series to rule out any small-bowel stricture. She is being followed by palliative Medicine. She may need outpatient psychiatry. Plan is to discharge her after the small-bowel study. ICIAN ALLERGIST IMMUNOLOGIST * Antonina Delarosa APRN, C.N.P., D.N.P. - 11/03/2025 7:34 AM CST [facility] PALLIATIVE CARE PROGRESS NOTE PATIENT: Radha Martinez; 35 y.o.female LOCATION TYPE: Hospital - General Floor LOCATION: 214/214-P CHIEF COMPLAINT/REASON FOR VISIT Symptom Management SUBJECTIVE No acute events overnight. Reports pain has fluctuated between a 4-7/10 and she has had some intermittent nausea, she has normal controlled. Pain continues to be opioid nonresponsive. She denies benefit from ibuprofen in the past, but she endorses that she had some benefit from ketorolac in the emergency department. She reports she had a bowel movement yesterday. Patient reports feeling like her anxiety is well managed and does not correlate with her increased pain. Plan for today includes small bowel series to rule out small-bowel stricture. Possible discharge from the hospital this afternoon. OBJECTIVE PHYSICAL EXAMINATION Temperature: [36.7 ??C-36.9 ??C] 36.7 ??C Resp Rate: [15-19] 16 Blood Pressure: (128-150)/(89-107) 142/93 SpO2: [93 %-100 %] 100 % Weight: [109 kg] 109 kg BMI (Calculated): [36.5 kg/m??] 36.5 kg/m?? Pulse Rate: [72-95] 89 Constitutional General: She is awake. She is not in acute distress. Pulmonary Effort: Pulmonary effort is normal. No respiratory distress. Abdominal Palpations: Abdomen is soft. Tenderness: There is abdominal tenderness in the left lower quadrant. There is no guarding or rebound. Musculoskeletal Right lower leg: No edema. Left lower leg: No edema. Skin General: Skin is warm and dry. Neurological Mental Status: She is alert and oriented to person, place, and time. Psychiatric Attention and Perception: Attention normal. Mood and Affect: Mood normal. Speech: Speech normal. Cognition and Memory: Cognition normal. PALLIATIVE FUNCTIONAL ASSESSMENT: 80% Full Ambulation. Normal activity with effort/Some evidence of disease. Full Self-Care. Normal or reduced oral intake. Full consciousness. DIAGNOSTICS MEDICATIONS/DIAGNOSTICS: Relevant results in the last 24 hours include: review of labs, Cr 0.74 with eGFR >90, leukocytes2.5 today. ASSESSMENT / PLAN Ms. Radha Martinez is a 35-year-old female with history of CML status post matched unrelated donorallo stem cell transplant (12/10/2024) who is well-known to palliative care team. She is admitted [facility] for new onset abdominal pain of unknown etiology. Palliative Care was consulted for pain and symptom management. #1 Abdominal Pain # Nausea and Vomiting # Opioid Induced Constipation # Anxiety # Palliative Care Z51.5 SUMMARY: It was a pleasure to visit with Ms. Martinez this morning alongside palliative medicine farm consultant Dr. Monica Tolbert. Radha continues to have pain located in her left lower quadrant which is different from her chronic cancer related pain. She has had some nausea which has been controlled by Reglan and IV Zofran. She has some concerns about pain management when she leaves the hospital, but notes that her pain has continued even with the use of hydromorphone. She had some benefit from ketorolac in the emergency department. Could consider trialing an NSAID since this has been helpful in thepast and could be related to possible adenomyosis. Could also consider pain medicine consult for possible trigger point injections in the inpatient or outpatient setting. Small bowel series to be completed today. Plans to follow up with Gynecology in the outpatient setting. RECOMMENDATIONS: Pain Would not recommend escalation of opioids at this time -continue buprenorphine 5 mcg/hour patch every 7 days -continue Tylenol 1000 mg every 6 hours as needed -consider addition of NSAID such as celecoxib 100 mg BID x 5 days. If this is helpful, continue until follow up with palliative care on 12/07. If not, discontinue. -Consider pain medicine consult for consideration of trigger point injection for muscular pain -utilize non-pharmacologic pain strategies such as heat, ice, progressive muscle relaxation; will have our palliative nurse follow up for additional support and education related to non-medicine painstrategies -Palliative outpatient clinic follow up scheduled for 12/07/2025. Nausea/Vomiting Currently well managed with ondansetron and metoclopramide Bowels Last bowel movement 11/01 -Continue senna BID and MiraLAX PRN, titrate to goal of soft bowel movement every 1-2 days Anxiety Continue home medications Abilify and Cymbalta -will engage our interdisciplinary team including mechanical artist and music therapy for psychosocial support while hospitalized Thank you for the opportunity to participate in caring for Ms. Martinez. We will continue to followalong. Please do not hesitate to contact Palliative Medicine M ([phone]) with any questions or concerns. Total time spent was 30 minutes. Antonina Delarosa APRN, C.N.P., D.N.P. Cosigned by Az Meyer APRN, C.N.P., D.N.P. at 11/03/2025 12:26 PM PHYSICIAN ALLERGIST IMMUNOLOGIST ICIAN ALLERGIST IMMUNOLOGIST ICIAN ALLERGIST IMMUNOLOGIST ICIAN ALLERGIST IMMUNOLOGIST * Felix Chavez M.D. - 11/02/2025 1:26 PM CST I visited and evaluated the patient. I do agree with the note of Whit Werner M.D. I discussed the evaluation with the patient and the BMT team in detail. Radha Martinez is a 35 y.o. female with history of CML s/p MUD allogeneic PBSCT 12/10/24.She has had a recurrent abdominal pain and has had extensive evaluation over the last 6 months. Shewas admitted this time from the emergency room for the management of nausea and abdominal pain. Shealso had some chest pain. Workup so far has been unrevealing. She is followed in palliative Medicine for symptom manage. She is day +327. Her chest discomfort and nausea have resolved. She is still having abdominal pain.We will consider small-bowel series to rule out any small- bowel stricture. She is being followed bypalliative Medicine. ICIAN ALLERGIST IMMUNOLOGIST * Whit Werner M.D. - 11/02/2025 6:33 AM CST SUBJECTIVE TRANSPLANT PHYSICIAN Dr. Rousseau HISTORY OF PRESENT ILLNESS Ms. Radha Martinez is a 35 y.o. 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 Transvaginal US with heterogenous myometrium. Patient here for new onset nausea and persistent abdominal pain. She was also reporting chest pain, workup for which is unremarkable. Patient is followed by palliative medicine as outpatient. This is the third ED visit this month for her abdominal pain. EVENTS OVER THE LAST 24 HOURS Patient reports he pain is always there, 6/10 in severity. Nothing makes it better or worse. She denies consitutional symptoms or bowel habit changes. She reports being able to keep oral intake down,though did have nausea yesterday. REVIEW OF SYSTEMS Otherwise negative. OBJECTIVE I/O Intake/Output Summary (Last 24 hours) at 11/02/2025 0634 Last data filed at 11/02/2025 0400 Gross per 24 hour Intake 1000 ml Output 350 ml Net 650 ml VITAL SIGNS Temperature: [36.5 ??C-36.8 ??C] 36.6 ??C Heart Rate: [69-97] 97 Resp Rate: [14-23] 16 Blood Pressure: (120-162)/(77-106) 120/89 SpO2: [91 %-99 %] 97 % Pulse Rate: [69-97] 71 PHYSICAL EXAMINATION Constitutional Appearance: Normal appearance. Cardiovascular Rate and Rhythm: Normal rate and regular rhythm. Pulmonary Effort: Pulmonary effort is normal. Breath sounds: Normal breath sounds. Abdominal General: Abdomen is flat. Palpations: Abdomen is soft. There is no mass. Tenderness: There is no abdominal tenderness. There is no guarding. Musculoskeletal Right lower leg: No edema. Left lower leg: No edema. Skin Capillary Refill: Capillary refill takes less than 2 seconds. Neurological General: No focal deficit present. Mental Status: She is alert and oriented to person, place, and time. Psychiatric Mood and Affect: Mood normal. Behavior: Behavior normal. DIAGNOSTICS I have reviewed the recent relevant Diagnostics Results from last 7 days Lab Units 11/02/25 0533 11/01/25 1322 10/29/25 1441 HEMOGLOBIN g/dL 11.0* 12.2 12.8 HEMATOCRIT % 34.0* 37.9 37.7 RBC AUTO x10(12)/L 3.96 4.49 4.65 MCV fL 85.9 84.4 81.1 RBC DISTRIBUTION WIDTH AUTO % 13.2 13.2 13.2 WBC x10(9)/L 2.8* 4.0 4.4 NEUTROPHILS AUTO x10(9)/L 1.35* 2.24 2.91 PLATELETS AUTO x10(9)/L 186 212 220 Results from last 7 days Lab Units 11/02/25 0533 11/01/25 1322 10/29/25 1441 SODIUM P mmol/L -- 139 139 SODIUM mmol/L 140 -- -- CHLORIDE P mmol/L -- 102 100 CHLORIDE mmol/L 103 -- -- BUN P mg/dL -- 11 9 BUN mg/dL 14 -- -- CREATININE mg/dL 0.82 0.74 0.64 CALCIUM P mg/dL -- 9.4 9.4 CALCIUM mg/dL 8.9 -- -- ALBUMIN g/dL 3.9 4.4 4.4 BILIRUBIN TOTAL mg/dL <0.2 0.3 0.3 ALK PHOS U/L 99 92 94 ALT U/L 40 50* 51* AST U/L 28 37 35 GLUCOSE P mg/dL -- 99 153* GLUCOSE S mg/dL 167* -- -- ASSESSMENT / PLAN Plan GI series to assess peristalsis, NPO after midnight for that. Appreciate palliative medicine recommendations. Ms. Radha Martinez is a 35 y.o. 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 Chimerism on the bone marrow showed 100% donor. BCR/ABL p210 was negative - Sort chimerism from 08/13/2025 showed 90% donor DNA in the CD3 [...] Pred which was tapered off inSept 2024 # Nausea # Vomiting - Less likely [...] Follow up with Palliative Medicine on 10/30/2025 - Will obtain GI series to assess for any peristalsis issues. # History of UTI - CT abdomen on 10/29/25 shows bladder wall thickening. There is no other CT findings that could explain her abdominal pain and back pain. She was started on cefdinir 300 mg twice a day for 7 days for UTI. Urine culture unremarkable. # Uterine adenomyosis - This was shown on US Pelvis on 10/30/25. - She is going to make an appointment with her business development agent. Currently scheduled for 11/16/2025. # Antimicrobial Prophylaxis - Currently on Acyclovir, [...] eye. Wears glasses. - Followed by [facility] in [place], [place]. # Transplant Survivorship - Please refer [...] stable. Therefore no lab until next visit. Whit Werner MD Hematology-oncology fellow PGY4 ICIAN ALLERGIST IMMUNOLOGIST ICIAN ALLERGIST IMMUNOLOGIST ICIAN ALLERGIST IMMUNOLOGIST documented in this encounter H&P Notes * Marky Pond M.D. 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 Posttransplant course complicated by: mucositis November-December 2024 Enterobacter cloaca UTI status post Cipro Admitted May 2025 x2 with nausea and abdominal pain EGD negative for GVHD Admitted June 2025 x2 with persistent abdominal pain. Status post negative CT abdomen pelvis, right upper quadrant ultrasound, transvaginal ultrasound, EGD/flex Colonoscopy July 2025 with 1 polyp removed Neuropathic pain/chronic pain Followed by palliative Care clinic Interval History She was last seen in the outpatient setting on 10/30/2025 by BMT and by palliative care after having presented to the emergency department. On 10/31/2025 she called regarding abdominal and back pain with intermittent shortness of breath and went to her local emergency department. In the emergency department she received Toradol with no benefit. Earlier today, she called in reporting ongoing pain.The Toradol gave her no benefit and Tylenol and Dilaudid were not giving her sufficient pain coverage. As such, she presented to the [facility]. ED Presentation: Upon presentation to the emergency department, she was found to have temperature 36.6??, heart rate89, blood pressure 151/100, and was saturating 99% on room air. Review of systems positive for backpain, abdominal pain, nausea, vomiting, chest pain. ED Labs/Imaging/ECG: CBC within normal limits BMP within normal limits Hepatic function panel unremarkable Troponin undetectable and without delta NT proBNP undetectable INR 1 D-dimer 418 Lactate 1.8 Lipase 25 Chest x-ray without concerning findings ECG NSR without change from prior ED Medications: Tylenol 1 g 400 mg acyclovir 1 mg IV Dilaudid 2 mg p.o. Dilaudid 15 mg Toradol 4 mg Zofran 500 mg penicillin 1 L 0.9% saline After remaining clinically stable and with reassuring workup, she was ultimately admitted for further pain management with likely palliative care consultation and potential gynecology involvement forrecent adenoma on ultrasound. Upon arrival to the floor, she corroborates the above history. She states that this is different from her prior abdominal pain which was located more epigastric and has resolved since her evaluationsin . This pain is mostly located in the left lower quadrant and has been present for roughly the last 4 days. This was preceded by nausea/vomiting which has been present for the last 10 days; however, this has improved since presentation to the emergency department. Otherwise, she was experiencing 3/10 central chest pain in the emergency department which has also now resolved. Lastly, she experienced a fever last Sunday. She has had no known sick contacts. Last bowel movement was this morning at 8:30 a.m. and was reportedly normal. She has not been experiencing any constipation. Current Outpatient Medications Medication Instructions acyclovir (ZOVIRAX) 400 mg, oral, 2 times daily ARIPiprazole (ABILIFY) 10 mg, oral, Daily, Dose change 12/02/2024 buprenorphine (Butrans) 5 mcg/hour 1 patch, transdermal, Weekly carboxymethylcellulose (Refresh Plus) 0.5 % ophthalmic solution 1 drop, 3 times daily PRN cefdinir (OMNICEF) 300 mg, oral, 2 times daily before morning and evening meals cholecalciferol (VITAMIN D3) 50 mcg, Daily DULoxetine (CYMBALTA) 120 mg, oral, Daily HYDROmorphone (DILAUDID) 2 mg, oral, Every 3 hours PRN melatonin 5-10 mg, Daily at bedtime metoclopramide (REGLAN) 10 mg, oral, 4 times daily before meals and bedtime naloxone (NARCAN) 4 mg, nasal, As needed, Use 1 spray in 1 nostril. Repeat with second device in other nostril after 2-3 minutes if no or minimal response. penicillin V potassium (VEETIDS) 500 mg, oral, 2 times daily posaconazole (NOXAFIL) 300 mg, oral, Daily sulfamethoxazole-trimethoprim (Bactrim) 400-80 mg per tablet 1 tablet, oral, Daily REVIEW OF SYSTEMS Pertinent items noted in HPI. OBJECTIVE VITAL SIGNS Temperature: [36.6 ??C-36.8 ??C] 36.8 ??C Heart Rate: [69-97] 82 Resp Rate: [14-23] 18 Blood Pressure: (122-162)/(77-106) 157/104 SpO2: [93 %-99 %] 97 % Pulse Rate: [69-97] 97 PHYSICAL EXAM: Psych/Neuro: No acute distress, A/O x4/4 E/ENT: Anicteric Eyes, mucous membranes moist CV: No extremity edema, peripheral pulses present, regular rate and rhythm, no murmurs/rubs/gallops Pulmonary: Breathing easily on room air. Speaking in full sentences. Clear to auscultation bilaterally without adventitious sounds GI: Soft, non-distended. No peritonitis. Bowel sounds present and normal. Tender to deep palpation in LLQ and LUQ. Skin: Warm and dry without lesions noted MSK: Able to sit upright in bed without assistance. Moving about the bed spontaneously. Tender to palpation over the left and right paraspinal muscles and over the left iliac crest without spinal tenderness. No lower extremity numbness. DIAGNOSTICS I have reviewed the diagnostics from admission. Notable findings: CT abdomen pelvis 10/29/25 without acute findings. ASSESSMENT / PLAN Overall, this is a 35-year-old female with significant history of CML status post MUD allo 12/10/24 who presents for evaluation of left lower quadrant abdominal pain. Of note, she 1st began experiencing nausea/vomiting roughly 10 days ago with development of 1 febrile episode on Sunday and now abdominal pain for roughly the last 4 days. Given this presentation, I think it may be possible that her more acute pain could be driven by a viral gastroenteritis. That said, she has not experienced any diarrhea. Next, she was experiencing chest pain in the emergency department that she states felt similar to prior episodes of heartburn. With her chronic abdominal pain, it is possible that she has poor localization and I do wonder if her current presentation could be related to GERD. We will try giving 1 empiric GI cocktail to see if this provides her with any benefit. Otherwise, more concerning processes such as appendicitis are effectively ruled out by her evaluation to this point. At home, she has been taking 2 mg of Dilaudid roughly every 3 hours with 1 g of Tylenol roughly every 6 hours. She additionally received Toradol for the last 2 days and is admitted for pain control. With anticipated palliative care involvement tomorrow, will increase the prn Dilaudid dose overnight tonight to 3 mg q.3 hours PRN. Given clinical stability, will also order sleep enhancement in an effort to helpwith rest and to reduce requirement for overnight PRN. 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 [facility] Fellow [phone] ICIAN ALLERGIST IMMUNOLOGIST documented in this encounter Consult Notes * Antonina Delarosa, KARON, C.N.P., D.N.P. - 11/02/2025 8:12 AM CSTAssociated Order(s): IP CONSULT TO PALLIATIVE CARE [facility] PALLIATIVE CARE NEW CONSULT NOTE PATIENT: Radha Martinez; 35 y.o.female LOCATION: /214-P LOCATION TYPE: Hospital - General Floor SUBJECTIVE CHIEF COMPLAINT/REASON FOR VISIT Symptom Management HISTORY OF PRESENT ILLNESS Ms. Radha Martinez is a 35-year-old female with history of CML status post matched unrelated donorallo stem cell transplant (12/10/2024) who is well-known to palliative care team. [facility] for new onset abdominal pain of unknown etiology. Palliative Care was consulted for pain and symptom management. Radha reports this new abdominal pain started on 10/22. This pain is localized to the left lower quadrant, different than her chronic, longstanding pain. She reports her chronic pain has largely resolved over the last couple of months. She has been working with the palliative Care Clinic to titrateoff of opioids. The left lower quadrant pain does not radiate. It worsens with palpation. She has been rating her pain between 4-6/10. She had Dilaudid left over from a previous prescription and was given a short supply in the emergency department. When she takes this it is not necessarily helpful,only reducing her pain by 1 point. She finds heat as a helpful distraction for her pain. In addition to the vein she has had nausea and vomiting. She reports this has been controlled in the hospital with IV ondansetron and newly started metoclopramide. Denies any sick contacts, but reports her son who was at home started vomiting today. Last bowel movement 12/14 AM, reports that she normally has twice daily bowel movements. Upon evaluation of abdominal pain, she was found to have a urinary tract infection for which she isnow receiving antibiotics. A CT abdomen pelvis was completed showing thickening of the bladder wall. A trans vaginal ultrasound showed heterogeneous appearance of the myometrium, which can be seen with uterine adenomyosis. Radha will follow up with gynecology in the outpatient setting. The following portions of the patient's history were reviewed and updated as appropriate: Allergies, Current Medications, Medical History, Surgical History, Family History, and Social History I have reviewed the patient???s record in the [place] Prescription Drug Monitoring Program ([place] CRACKING STILL OPERATOR Aware) with no unexpected findings. REVIEW OF SYSTEMS Gastrointestinal: Positive for abdominal (belly) pain or cramping and constipation. - Negative for nausea and vomiting. Genitourinary: - Negative for pain with urination. Psychiatric/Behavioral: Positive for feeling down, depressed, or hopeless over past two weeks and feeling nervous, anxious, or on edge in past two weeks. All other systems reviewed and are negative. ADVANCE CARE PLANNING DOCUMENTS: Documents notable for: Advance Directive completed 11/2024 Surrogate decision maker: Mother, Natalya Martinez; alternate, Charles Minor, significant other CODE STATUS AT TIME OF INITIAL CONSULTATION: Full Code PALLIATIVE FUNCTIONAL ASSESSMENT: 80% Full Ambulation. Normal activity with effort/Some evidence of disease. Full Self-Care. Normal or reduced oral intake. Full consciousness. OBJECTIVE Temperature: [36.5 ??C-36.8 ??C] 36.7 ??C Heart Rate: [69-97] 97 Resp Rate: [14-23] 15 Blood Pressure: (120-162)/(77-106) 128/98 SpO2: [91 %-99 %] 95 % Height: [173 cm] 173 cm Weight: [107 kg-109 kg] 109 kg BSA (Calculated - sq m): [2.29 sq meters] 2.29 sq meters BMI (Calculated): [36.4 kg/m??-36.5 kg/m??] 36.5 kg/m?? Pulse Rate: [69-97] 95 PHYSICAL EXAMINATION Constitutional General: She is awake. She is not in acute distress. Pulmonary Effort: Pulmonary effort is normal. No respiratory distress. Abdominal General: Abdomen is flat. Bowel sounds are normal. Palpations: Abdomen is soft. Tenderness: There is abdominal tenderness in the left upper quadrant. There is no guarding or rebound. Comments: Positive Carnett's sign Musculoskeletal Right lower leg: No edema. Left lower leg: No edema. Skin General: Skin is warm and dry. Neurological General: No focal deficit present. Mental Status: She is alert and oriented to person, place, and time. Psychiatric Attention and Perception: Attention normal. Mood and Affect: Mood is anxious. Speech: Speech normal. Behavior: Behavior normal. Cognition and Memory: Cognition normal. DIAGNOSTICS Relevant results for this consult include Hgb 11, leukocytes 2.8; reviewed recent CT abdomen/pelvisand transabdominal/transpelvic ultrasound ASSESSMENT / PLAN # Abdominal Pain # Nausea and Vomiting # Opioid Induced Constipation # Anxiety # Palliative Care Z51.5 SUMMARY: It was a pleasure to meet Radha this morning alongside nurse practitioner Az Meyer. Evaluation of abdominal pain is ongoing with plan for gynecology consult while inpatient. She describes the pain as different than her chronic pain and has not found the pain to be opioid responsive.She has some relief with heat. Could consider consultation with pain medicine for possible trigger point injection as upon exam it seems muscular in nature. Would not recommend escalation of opioids in this setting as pain has not been opioid responsive and risks of side effects such as nausea and opioid induced constipation outweigh the benefits at this time. Provided counseling to patient in regards to reducing opioids, she was in agreement with this plan. We will engage our interdisciplinary team to employ non-pharmacologic pain management strategies aswell. Nausea and vomiting are well controlled at this time. Last bowel movement 12/14 AM. Daily reports some worry about her 14 year old son who is home ill from school today. She is well supported by her family and knows that he is being taken care of but notes that it is difficult to beaway from him. Recommendations: Pain Would not recommend escalation of opioids at this time -continue buprenorphine 5 mcg/hour patch every 7 days -continue Tylenol 1000 mg every 6 hours as needed -utilize non-pharmacologic pain strategies such as heat, ice, progressive muscle relaxation; will have our palliative nurse follow up for additional support and education related to non-medicine painstrategies -Consider pain medicine consult for consideration of trigger point injection for muscular pain Nausea/Vomiting Currently well managed with ondansetron and metoclopramide Bowels Last bowel movement 11/01 -Continue senna BID and MiraLAX PRN, titrate to goal of soft bowel movement every 1-2 days Anxiety Continue home medications Abilify and Cymbalta -will engage our interdisciplinary team including mechanical artist and music therapy for psychosocial support while hospitalized Thank you for the opportunity to participate in caring for Ms. Martinez. We will continue to followalong, please do not hesitate to contact Palliative Medicine M ([phone]) with any questions or concerns. Total time spent was 60 minutes. Antonina Delarosa APRN, C.N.P., D.N.P. Cosigned by Az Meyer APRN, C.N.P., D.N.P. at 11/02/2025 11:25 AM PHYSICIAN ALLERGIST IMMUNOLOGIST ICIAN ALLERGIST IMMUNOLOGIST ICIAN ALLERGIST IMMUNOLOGIST documented in this encounter Nursing Notes * Stefan Albarado R.N. - 11/03/2025 5:30 PM CST Discharge paperwork discussed with pt, no questions or comments. Pt will slate picker medications in [place] at [facility]. Pt felt fine to walk and will catch the transport back to [facility] where her car is parked. No further issues or needs at this time. Pt verbalized understanding to come back if her symptoms return or get worse. ICIAN ALLERGIST IMMUNOLOGIST * Moy Pratt - 11/02/2025 7:25 PM CST Shift Goals: Clinical Goals for the Shift: pain control Identify possible barriers to meeting goals/advancing plan of care: none End of Shift Summary: Pt is alert and oriented x3. Pt ambulated around the unit independently with no complains of SOB. Pt reported pain of 7/10 PRN meds were given (see MAR) for details. ICIAN ALLERGIST IMMUNOLOGIST * Daniela Santamaria R.N. - 11/02/2025 5:27 AM CST Shift Goals: Clinical Goals for the Shift: Pt will have adequate pain control and be able to rest overnight. Identify possible barriers to meeting goals/advancing plan of care: ongoing pain End of Shift Summary: Pt had some difficulty sleeping overnight. Second dose of melatonin was givenand she states she slept a few hours after that. Pain somewhat controlled with prn Dilaudid and Tylenol. Electronically signed by: Daniela Santamaria R.N. 11/02/2025 5:28 AM PHYSICIAN ALLERGIST IMMUNOLOGIST ICIAN ALLERGIST IMMUNOLOGIST documented in this encounter ED Notes * Mallory Lux R.N. - 11/01/2025 4:27 PM CST Updated Marry Jarvis CNP that the pt would like to talk to her concerning her plan of care. Provider verbalized understanding. Mallory Lux R.N. 11/01/25 1628 ICIAN ALLERGIST IMMUNOLOGIST * Marry Jarvis APRN, C.N.P., D.N.P. - 11/01/2025 12:51 PM CST Images from the original note were not included. The patient verbally consented to an audio recording of their visit to assist with the completion of documentation. SUBJECTIVE CHIEF COMPLAINT/REASON FOR VISIT Abdominal Pain and Back Pain HISTORY OF PRESENT ILLNESS History of Present Illness Radha Martinez is a 35 year old female with chronic myeloid leukemia status post stem cell transplant who presents with worsening abdominal pain and new onset chest pain. She has worsening left lower abdominal pain along her lower waistband, more severe than a few days ago. Home Dilaudid has not relieved the pain. A heating pad provided partial relief. She can take ibuprofen and Tylenol but avoids other NSAIDs as instructed. She was recently treated for a urinary tract infection, is on antibiotics, and denies dysuria, frequency, or urgency. She vomited her morningmedications, including her rejection meds, but later tolerated toast. She has had three bowel movements per day without pain. She had a fever to 101??F on Sunday when symptoms worsened. Abdominal pain began . Chest pain started last night, is new, rated 3/10, and is not pleuritic. She denies prior blood clots. She received Toradol in the [place] ER last night with minimal relief. No imaging or cardiac labs were obtained there. She lives with her boyfriend at her school and reports no recent vomiting or diarrhea in the household. REVIEW OF SYSTEMS Cardiovascular: Positive for chest pain. Gastrointestinal: Positive for abdominal pain, nausea and vomiting. Musculoskeletal: Positive for back pain. OBJECTIVE Initial Vitals Temperature 11/01/25 1146 36.6 ??C Pulse Rate 11/01/25 1146 92 Heart Rate 11/01/25 1215 89 Resp Rate 11/01/25 1146 17 Blood Pressure 11/01/25 1146 (!) 151/106 SpO2 11/01/25 1146 99 % Pain Score 11/01/25 1146 7 PHYSICAL EXAMINATION Constitutional: Nursing note and vitals reviewed. HENT: Head: Normocephalic. Mouth/Throat: Mucous membranes are moist. Eyes: EOM are normal. Pupils are equal, round, and reactive to light. Cardiovascular: Regular rhythm. Pulmonary/Chest: Effort normal. No tachypnea. Abdominal: Soft. There is abdominal tenderness. There is no guarding. Neurological: Alert and oriented to person, place, and time. Skin: Skin is warm and dry. She is not diaphoretic. Psychiatric: She has a normal mood and affect. Behavior is normal. Physical Exam ASSESSMENT/PLAN Medical Decision Making 35-year-old female with a history of chronic myeloid leukemia status post allogeneic stem cell transplant (11/2024) presented with worsening lower left abdominal pain, new onset chest pain, and recentvomiting affecting medication absorption. She has a recent diagnosis of urinary tract infection butis asymptomatic for urinary symptoms. Exam notable for persistent pain unrelieved by home and ER-administered analgesics, and no bowel or urinary complaints. EKG was normal and she is afebrile at presentation. Differential diagnosis includes, but is not limited to: - Venous Thromboembolism (Pulmonary Embolism): Considered due to new chest pain and increased risk from history of cancer and recent transplant, though no history of prior clots and chest pain is notpleuritic. - Acute Coronary Syndrome: Considered due to new chest pain; EKG was normal and cardiac enzymes were ordered for further evaluation. Lower abdominal pain and vomiting affecting medication absorption - Administered IV pain medications for better absorption and pain control. - Administered IV medications to ensure proper absorption and efficacy. Chest pain (rule out venous thromboembolism and acute coronary syndrome) - Order labs including heart enzymes to assess cardiac function. - Discuss with the transplant team regarding the need for chest imaging to rule out blood clots. Status post allogeneic stem cell transplant for chronic myeloid leukemia - Coordinate with the transplant team for ongoing management and to ensure no duplication of tests or treatments. ED Course as of 11/01/25 1738 Sun Nov 01, 2025 1340 Lactate: 1.8 1358 D-Dimer, P: 418 WNL 1423 Troponin T, Baseline, 5th gen: <6 1622 2H Delta Interp: Not Changing 1700 Patient remains stable and workup is reassuring thus far but she has required multiple doses of pain medication here in the emergency department. I did speak with the bone marrow transplant teamand ultimately given this is her 3rd ER visit within 3 days, ongoing pain with a negative workups [place] not feel she requires any additional imaging or studies at this time from the emergency department. Ultimately she needs to be admitted for further pain management with likely consult to palliative care and potentially gynecology for recent concern for adenoma on ultrasound. I have verified withthe patient again that her pain is not changed and I do not feel she requires repeat imaging as this has been done within the last 2 days. Plan will be to admit her to the hospital. She remains in noacute distress and I feel she is appropriate for floor admission. Final Diagnoses: as of 11/01/25 1738 Abdominal Pain Pain Chest Care Handoff Row Name 11/01/25 1633 Care Handoff Type of Handoff Admission handoff Marry Jarvis APRN, C.N.P., D.N.P. 11/01/25 1738 ICIAN ALLERGIST IMMUNOLOGIST * Miranda Soto R.N. - 11/01/2025 11:47 AM CST Pt is a 35 yo female who presents to the ED with c/o back pain, abdominal pain, and intermittent chest pain. Pt has a HX of CML and bone marrow transplant. Pt states she had valle the abdominal pain andback pain since 10/22 and developed the chest pain last night. She was seen in the ED afew days ago and has seen her transplant team. Pt states she called the team today and was advised to come to the ED for potential graft vs host. Pt states she vomited her transplant meds this morning. She has had nausea and intermittent vomiting. Miranda Soto R.N. 11/01/25 1151 ICIAN ALLERGIST IMMUNOLOGIST documented in this encounter Plan of Treatment DateTypeDepartmentCare Team (Latest Contact Info)Ahidrzuvboz66/29/2025 9:00 AM CSTOffice Visit Department of Obstetrics and Gynecology in [place], [place] [address] [place] [phone] Alice Linares M.D. [address] [place] [phone] 11/17/2025 11:00 AM CSTTelemedicine Department of [facility] [place], [place] [address] [place] [address] Yary Medeiros D.O. [address] [place] [phone] 12/04/2025 1:30 PM CSTClinical Communication Virtual Review in [place], [place] 200 [place] [address] 12/07/2025 8:10 AM CSTLab Department of Laboratory Medicine and Pathology, [facility], in [place], [place] [address] [place] [phone] Jessica Rousseau M.B.B.S. [address] [place] [phone] 12/07/2025 9:15 AM CSTAppointment Outpatient Procedure Center in [place], [place] [address] [place] [phone] Jessica Rousseau M.B.B.S. [address] [place] [phone] 12/07/2025 11:00 AM CSTDiagnostic Division of Pulmonary Medicine in [place], [place] [address] [place] [phone] Jessica Rousseau M.B.B.S. [address] [place] [phone] 12/07/2025 1:00 PM CSTOffice Visit [facility] [place], [place] [address] [place] [phone] Jessica Rousseau M.B.B.S. [address] [place] [phone] 12/07/2025 1:30 PM CSTNurse Only [facility] in [place], [place] [address] [place] [phone] Jessica Rousseau M.B.B.S. [address] [place] [address] 12/07/2025 2:00 PM CSTOffice Visit Pedro sanchez [facility] for [facility] Reg[facility] in [place], [place] [address] [place] [address] Jessica Rousseau M.B.B.S. [address] [place] [phone] 12/07/2025 3:00 PM CSTOffice Visit Department of Palliative Care in [place], [place] [address] [place] [address] Martine Pardo B.M.B.S., Juan M, B.Ch. [address] [place] [phone] NameTypePriorityAssociated DiagnosesOrder ScheduleObstetrics and Gynecology - Pelvic pain consult (clinic)Outpatient ReferralRoutine Pain Left Lower Quadrant Expected: 11/03/2025, Expires: 02/01/2027documented as of this encounter Procedures Procedure NamePriorityDate/TimeAssociated DiagnosisCommentsCBC NO CALL BACK, REFLEX T/TAikhdtd82/16/2025 5:02 AM PHYSICIAN ALLERGIST IMMUNOLOGIST COMPREHENSIVE METABOLIC PANEL, S/LDsfjtvp09/16/2025 5:02 AM PHYSICIAN ALLERGIST IMMUNOLOGIST CBC NO CALL BACK, REFLEX T/UYeldmtl19/15/2025 5:33 AM PHYSICIAN ALLERGIST IMMUNOLOGIST COMPREHENSIVE METABOLIC PANEL, S/QBitkhmy71/15/2025 5:33 AM PHYSICIAN ALLERGIST IMMUNOLOGIST TROPONIN T, 2H/6H REFLEX, 5TH GEN, GOsbkd5711/01/2025 3:46 PM PHYSICIAN ALLERGIST IMMUNOLOGIST DX CHEST AP OR PA AND LATERAL 2 VIEWSRAD - Semiurgent (Fast; most ED patients; some inpatients)11/01/2025 2:13 PM PHYSICIAN ALLERGIST IMMUNOLOGIST LACTATE, BSTAT101/02/2025 1:22 PM PHYSICIAN ALLERGIST IMMUNOLOGIST TROPONIN T, BASELINE, 5TH GEN, PSTAT101/02/2025 1:22 PM PHYSICIAN ALLERGIST IMMUNOLOGIST HEPATIC FUNCTION PANEL, SSTAT101/02/2025 1:22 PM PHYSICIAN ALLERGIST IMMUNOLOGIST NT-PRO B-TYPE NATRIURETIC PEPTIDE (BNP), SSTAT101/02/2025 1:22 PM PHYSICIAN ALLERGIST IMMUNOLOGIST PROTHROMBIN TIME (PT), PSTAT101/02/2025 1:22 PM PHYSICIAN ALLERGIST IMMUNOLOGIST D-DIMER, PSTAT101/02/2025 1:22 PM PHYSICIAN ALLERGIST IMMUNOLOGIST CBC WITH DIFFERENTIAL, BSTAT101/02/2025 1:22 PM PHYSICIAN ALLERGIST IMMUNOLOGIST LIPASE, S/PSTAT101/02/2025 1:22 PM PHYSICIAN ALLERGIST IMMUNOLOGIST BASIC METABOLIC PANEL, S/PSTAT101/02/2025 1:22 PM PHYSICIAN ALLERGIST IMMUNOLOGIST MAAVSMC2311/01/2025 11:30 AM PHYSICIAN ALLERGIST IMMUNOLOGIST documented in this encounter Results * (ABNORMAL) Comprehensive Metabolic Panel (11/03/2025 5:02 AM PHYSICIAN ALLERGIST IMMUNOLOGIST)Component ValueRef RangeTest MethodAnalysis TimePerformed AtPathologist Signature Potassium, S4.63.6 - 5.2 mmol/L101/04/2025 7:04 AM CSTDTLSodium, R674062 - 145 mmol/L101/04/2025 7:04 AM CSTDTLChloride, X51277 - 107 mmol/L101/04/2025 7:04 AM CSTDTLBicarbonate, S2422 - 29 mmol/L101/04/2025 7:04 AM CSTDTLAnion Euy013 - 15 11/03/2025 7:04 AM CSTDTLBUN (Blood Urea Nitrogen), S126 - 21 mg/dL11/03/2025 7:04 AM CSTDTLCreatinine0.740.59 - 1.04 mg/dL11/03/2025 7:04 AM CSTDTL Estimated GFR (eGFR)>90>=60 mL/min/BSA11/03/2025 7:04 AM CSTDTLComment: Estimated GFR calculated using the 2020 CKD_EPI creatinine equation. Calcium, Total, S9.08.6 - 10.0 mg/dL11/03/2025 7:04 AM CSTDTLGlucose, S8970 - 140 mg/dL11/03/2025 7:04 AM CSTDTLProtein, Total, S6.76.3 - 7.9 g/dL11/03/2025 7:04 AM CSTDTLAlbumin, S4.13.5 - 5.0 g/dL11/03/2025 7:04 AM CSTDTLAspartate Aminotransferase (AST), S408 - 43 U/L101/04/2025 8:09 AM CSTDTLAlkaline Phosphatase, S9735 - 104 U/L101/04/2025 7:04 AM CSTDTLAlanine Aminotransferase (ALT), S49(H)7 - 45 U/L101/04/2025 7:04 AM CSTDTLBilirubin, Total, S0.20.0 - 1.2 mg/dL11/03/2025 7:04 AM CSTDTLSpecimen (Source)Anatomical Location / Laterality Collection Method / VolumeCollection TimeReceived TimeBlood (Blood, Venous) 11/03/2025 5:02 AM CST11/03/2025 5:34 AM PHYSICIAN ALLERGIST IMMUNOLOGIST Narrative Authorizing ProviderResult TypeResult StatusWhit Werner M.D.LAB BLOOD ADD-ONFinal ResultPerforming OrganizationAddressCity/State/ZIP CodePhone Number [facility] [address] [place] [address], [place] D[facility] 200 [place] [address] * (ABNORMAL) CBC no call back, reflex T/S HGB <8 (11/03/2025 5:02 AM PHYSICIAN ALLERGIST IMMUNOLOGIST) ComponentValueRef RangeTest MethodAnalysis TimePerformed AtPathologist RaxhlcnabQzdwwsuyoz82.611.6 - 15.0 g/dL11/03/2025 5:26 AM TVADTBJptistijjh67.9 (L)35.5 - 44.9 %11/03/2025 5:26 AM CSTDTLErythrocytes4.163.92 - 5.13 x10(12)/L 11/03/2025 5:26 AM SZDPVNRKE93.978.2 - 97.9 fL11/03/2025 5:26 AM CSTDTLRBC Distrib Width13.212.2 - 16.1 %11/03/2025 5:26 AM CSTDTLPlatelet Olrzg844625 - 371 x10(9)/L101/04/2025 5:26 AM CSTDTLLeukocytes2.5(L)3.4 - 9.6 x10(9)/L 11/03/2025 5:26 AM CSTDTLNeutrophils1.30(L)1.56 - 6.45 x10(9)/L101/04/2025 5:26 AM CSTDHPMLymphocytes0.71(L)0.95 - 3.07 x10(9)/L101/04/2025 5:26 AM CSTDTL Monocytes0.22(L)0.26 - 0.81 x10(9)/L101/04/2025 5:26 AM CSTDTLEosinophils0.25 0.03 - 0.48 x10(9)/L101/04/2025 5:26 AM CSTDTLBasophils0.030.01 - 0.08 x10(9)/L 11/03/2025 5:26 AM CSTDTLSpecimen (Source)Anatomical Location / Laterality Collection Method / VolumeCollection TimeReceived TimeBlood (Blood, Venous) 11/03/2025 5:02 AM CST11/03/2025 5:20 AM PHYSICIAN ALLERGIST IMMUNOLOGIST Narrative Authorizing ProviderResult TypeResult StatusWhit Werner M.D.LAB BLOOD NON ADD-ONFinal ResultPerforming OrganizationAddressCity/State/ZIP CodePhone Number [facility] [address] [place] [address], [facility] DTL [facility] 200 [place] [address] [facility] [address] [place] [address] * (ABNORMAL) CBC no call back, reflex T/S HGB <8 (11/02/2025 5:33 AM PHYSICIAN ALLERGIST IMMUNOLOGIST) ComponentValueRef RangeTest MethodAnalysis TimePerformed AtPathologist ZrjnfzeqnKrbjqiruei28.0(L)11.6 - 15.0 g/dL11/02/2025 6:05 AM CSTDTLHematocrit 34.0(L)35.5 - 44.9 %11/02/2025 6:05 AM CSTDTLErythrocytes3.963.92 - 5.13 x10(12)/L101/03/2025 6:05 AM AXAATPXOY42.978.2 - 97.9 fL11/02/2025 6:05 AM PHYSICIAN ALLERGIST IMMUNOLOGIST DTLRBC Distrib Width13.212.2 - 16.1 %11/02/2025 6:05 AM CSTDTLPlatelet Count 387522 - 371 x10(9)/L101/03/2025 6:05 AM CSTDTLLeukocytes2.8(L)3.4 - 9.6 x10(9)/L101/03/2025 6:05 AM CSTDTLNeutrophils1.35(L)1.56 - 6.45 x10(9)/L 11/02/2025 6:05 AM CSTDHPMLymphocytes0.990.95 - 3.07 x10(9)/L101/03/2025 6:05 AM CSTDTLMonocytes0.17(L)0.26 - 0.81 x10(9)/L101/03/2025 6:05 AM CSTDTL Eosinophils0.240.03 - 0.48 x10(9)/L101/03/2025 6:05 AM CSTDTLBasophils0.050.01 - 0.08 x10(9)/11/02/2025 6:05 AM CSTDTLSpecimen (Source)Anatomical Location / LateralityCollection Method / VolumeCollection TimeReceived TimeBlood (Blood, Venous)11/02/2025 5:33 AM CST11/02/2025 5:54 AM PHYSICIAN ALLERGIST IMMUNOLOGIST Narrative Authorizing ProviderResult TypeResult StatusRenita Potts APRN C.N.P., D.N.P. LAB BLOOD NON ADD-ONFinal ResultPerforming OrganizationAddressCity/State/ZIP CodePhone Number [facility] [address] [place] [address], [place] [facility] [address] [place] [address] [facility] [address] [place] [address] * (ABNORMAL) Comprehensive Metabolic Panel (11/02/2025 5:33 AM PHYSICIAN ALLERGIST IMMUNOLOGIST)Component ValueRef RangeTest MethodAnalysis TimePerformed AtPathologist Signature Potassium, S4.03.6 - 5.2 mmol/L101/03/2025 6:24 AM CSTDTLSodium, N122696 - 145 mmol/L101/03/2025 6:24 AM CSTDTLChloride, O10897 - 107 mmol/L101/03/2025 6:24 AM CSTDTLBicarbonate, S2622 - 29 mmol/L101/03/2025 6:24 AM CSTDTLAnion Izh561 - 15 11/02/2025 6:24 AM CSTDTLBUN (Blood Urea Nitrogen), S146 - 21 mg/dL11/02/2025 6:24 AM CSTDTLCreatinine0.820.59 - 1.04 mg/dL11/02/2025 6:24 AM CSTDTL Estimated GFR (eGFR)>90>=60 mL/min/BSA11/02/2025 6:24 AM CSTDTLComment: Estimated GFR calculated using the 2020 CKD_EPI creatinine equation. Calcium, Total, S8.98.6 - 10.0 mg/dL11/02/2025 6:24 AM CSTDTLGlucose, S167(H)70 - 140 mg/dL11/02/2025 6:24 AM CSTDTLProtein, Total, S6.2(L)6.3 - 7.9 g/dL 11/02/2025 6:24 AM CSTDTLAlbumin, S3.93.5 - 5.0 g/dL11/02/2025 6:24 AM CSTDTL Aspartate Aminotransferase (AST), S288 - 43 U/L12/ 6:24 AM CSTDTLAlkaline Phosphatase, S9935 - 104 U/L101/03/2025 6:24 AM CSTDTLAlanine Aminotransferase (ALT), S407 - 45 U/L101/03/2025 6:24 AM CSTDTLBilirubin, Total, S<0.20.0 - 1.2 mg/dL11/02/2025 6:24 AM CSTDTLSpecimen (Source)Anatomical Location / Laterality Collection Method / VolumeCollection TimeReceived TimeBlood (Blood, Venous) 11/02/2025 5:33 AM CST11/02/2025 6:07 AM PHYSICIAN ALLERGIST IMMUNOLOGIST Narrative Authorizing ProviderResult TypeResult StatusRenita Potts APRN, C.N.P., D.N.P. LAB BLOOD ADD-ONFinal ResultPerforming OrganizationAddressCity/State/ZIP Code Phone Number [facility] 200 [place] [address], [facility] D[facility] 200 [place] [address] * Troponin T, 2 Hour with 6 Hour Reflex, 5th Gen (11/01/2025 3:46 PM PHYSICIAN ALLERGIST IMMUNOLOGIST) ComponentValueRef RangeTest MethodAnalysis TimePerformed AtPathologist SignatureTroponin T, 2 hr, 5th gen<6<=10 ng/L101/02/2025 4:12 PM MKIKWIH5J Wkvvf6gc/L101/02/2025 4:12 PM CSTSTMAComment:6 hour collection not indicated.2H Delta InterpNot Cpczrrwv39/14/2025 4:12 PM CSTSTMASpecimen (Source)Anatomical Location / LateralityCollection Method / VolumeCollection TimeReceived Time Blood11/01/2025 3:46 PM CST11/01/2025 3:51 PM PHYSICIAN ALLERGIST IMMUNOLOGIST Narrative Authorizing ProviderResult TypeResult StatusMarry Jarvis APRN, C.N.P., D.N.P. LAB BLOOD TROPONINFinal ResultPerforming OrganizationAddressCity/State/ZIP Code Phone Number [facility] [address] [place] [address], [facility] ST[facility] 200 [place] [address] * DX Chest AP or PA and Lateral 2 Views (11/01/2025 2:13 PM PHYSICIAN ALLERGIST IMMUNOLOGIST)Anatomical RegionLateralityModalityChest, Thoracic RST LOS, Thoracic ARZ LOS, Thoracic FLA LOSN/ADigital RadiographySpecimen (Source)Anatomical Location / Laterality Collection Method / VolumeCollection TimeReceived Time Impressions 11/01/2025 2:30 PM PHYSICIAN ALLERGIST IMMUNOLOGIST Since 12/23/2024, the right IJ CVC has been removed. Remainder unchanged. No focal consolidation, pleural effusion or pneumothorax. Stable heart size. Narrative 11/01/2025 2:30 PM PHYSICIAN ALLERGIST IMMUNOLOGIST EXAM: DX CHEST AP OR PA AND LATERAL 2 VIEWS Procedure Note Geo Edgar M.D. - 11/01/2025 EXAM: DX CHEST AP OR PA AND LATERAL 2 VIEWS IMPRESSION: Since 12/23/2024, the right IJ CVC has been removed. Remainder unchanged.No focal consolidation, pleural effusion or pneumothorax. Stable heartsize. Authorizing ProviderResult TypeResult StatusEmma Tim Jarvis APRN, C.N.P., D.N.P. IMG DIAGNOSTIC IMAGING PROCEDURESFinal Result * Lipase (11/01/2025 1:22 PM PHYSICIAN ALLERGIST IMMUNOLOGIST)ComponentValueRef RangeTest MethodAnalysis Time Performed AtPathologist SignatureLipase, S2513 - 60 U/L101/02/2025 2:04 PM PHYSICIAN ALLERGIST IMMUNOLOGIST DTLSpecimen (Source)Anatomical Location / LateralityCollection Method / Volume Collection TimeReceived TimeBlood (Blood, Venous)11/01/2025 1:22 PM PHYSICIAN ALLERGIST IMMUNOLOGIST 11/01/2025 1:48 PM PHYSICIAN ALLERGIST IMMUNOLOGIST Narrative Authorizing ProviderResult TypeResult StatusEmaleksander Jarvis APRN, C.N.P., D.N.P. LAB BLOOD ADD-ONFinal ResultPerforming OrganizationAddressCity/State/ZIP Code Phone Number [facility] [address] [place] [address], [place] [facility] 200 [place] [address] * (ABNORMAL) Hepatic Function Panel (11/01/2025 1:22 PM PHYSICIAN ALLERGIST IMMUNOLOGIST)ComponentValueRef RangeTest MethodAnalysis TimePerformed AtPathologist SignatureBilirubin, Total, S0.30.0 - 1.2 mg/dL11/01/2025 2:04 PM CSTDTLBilirubin, Direct, S<0.10.0 - 0.3 mg/dL11/01/2025 2:04 PM CSTDTLAspartate Aminotransferase (AST), S378 - 43 U/L101/02/2025 2:04 PM CSTDTLAlanine Aminotransferase (ALT), S50(H)7 - 45 U/L101/02/2025 2:04 PM CSTDTLAlkaline Phosphatase, S9235 - 104 U/L101/02/2025 2:04 PM CSTDTLAlbumin, S4.43.5 - 5.0 g/dL11/01/2025 2:04 PM CSTDTLProtein, Total, S7.16.3 - 7.9 g/dL11/01/2025 2:04 PM CSTDTLSpecimen (Source)Anatomical Location / LateralityCollection Method / VolumeCollection TimeReceived Time Blood (Blood, Venous)11/01/2025 1:22 PM CST11/01/2025 1:48 PM PHYSICIAN ALLERGIST IMMUNOLOGIST Narrative Authorizing ProviderResult TypeResult StatusMarry Jarvis APRN, C.N.P., D.N.P. LAB BLOOD ADD-ONFinal ResultPerforming OrganizationAddressCity/State/ZIP Code Phone Number [facility] [address] [place] [address], [facility] D[facility] [address] [place] [address] * Lactate, B (11/01/2025 1:22 PM PHYSICIAN ALLERGIST IMMUNOLOGIST)ComponentValueRef RangeTest MethodAnalysis TimePerformed AtPathologist SignatureLactate, B1.80.5 - 2.2 mmol/L101/02/2025 1:40 PM CSTSTMASpecimen (Source)Anatomical Location / LateralityCollection Method / VolumeCollection TimeReceived TimeBlood (Blood, Venous)11/01/2025 1:22 PM CST11/01/2025 1:39 PM PHYSICIAN ALLERGIST IMMUNOLOGIST Narrative Authorizing ProviderResult TypeResult StatusMarry Jarvis APRN, C.N.P., D.N.P. LAB BLOOD NON ADD-ONFinal ResultPerforming OrganizationAddressty/[facility] CodePhone Number [facility] 200 [place] [address], [facility] 200 [place] [address] * D-Dimer (11/01/2025 1:22 PM PHYSICIAN ALLERGIST IMMUNOLOGIST)ComponentValueRef RangeTest MethodAnalysis TimePerformed AtPathologist SignatureD-Dimer, P418<=500 ng/mL FEU101/02/2025 1:48 PM CSTSTMAComment: ----ADDITIONAL INFORMATION---- D-dimer values less than or equal to 500 ng/mL fibrinogen equivalent units (FEU) may be used in conjunction with clinical pre-test probability to exclude deep vein thrombosis (DVT) and/or pulmonary embolism (PE). Specimen (Source)Anatomical Location / LateralityCollection Method / Volume Collection TimeReceived TimeBlood (Blood, Venous)11/01/2025 1:22 PM PHYSICIAN ALLERGIST IMMUNOLOGIST 11/01/2025 1:40 PM PHYSICIAN ALLERGIST IMMUNOLOGIST Narrative Authorizing ProviderResult TypeResult StatusEmma Satnam Sutherland APRN.N.P., D.N.P. LAB BLOOD ADD-ONFinal ResultPerforming OrganizationAddressCity/State/ZIP Code Phone Number [facility] [address] [place] [address], [facility] 200 [place] [address] * NT-Pro B-Type Natriuretic Peptide (BNP) (11/01/2025 1:22 PM PHYSICIAN ALLERGIST IMMUNOLOGIST)ComponentValue Ref RangeTest MethodAnalysis TimePerformed AtPathologist SignatureNT-Pro BNP <36<160 pg/mL11/01/2025 2:12 PM CSTSTMAComment: NT-proBNP values less than 300 pg/mL have a 99% negative predictive value for excluding acute congestive heart failure. A cutoff of 1200 pg/mL for patients with an eGFR<60 yields a diagnostic sensitivity and specificity of 89% and 72% for acute congestive heart failure. NT-proBNP values greater than 450 pg/mL are consistent with CHF in adults under 50 years of age. Specimen (Source)Anatomical Location / LateralityCollection Method / Volume Collection TimeReceived TimeBlood (Blood, Venous)11/01/2025 1:22 PM PHYSICIAN ALLERGIST IMMUNOLOGIST 11/01/2025 1:40 PM PHYSICIAN ALLERGIST IMMUNOLOGIST Narrative Authorizing ProviderResult TypeResult StatusEmma Tim Jamari Jarvis APRNN.Jean., D.N.P. LAB BLOOD ADD-ONFinal ResultPerforming OrganizationAddressCity/State/[facility] Code Phone Number [facility] [address] [place] [address], [facility] [address] [place] [address] * Prothrombin Time (PT) (11/01/2025 1:22 PM PHYSICIAN ALLERGIST IMMUNOLOGIST)ComponentValueRef RangeTest MethodAnalysis TimePerformed AtPathologist SignatureProthrombin Time, P10.59.4 - 12.5 sec11/01/2025 1:47 PM CSTSTMAINR1.00.9 - 1. 1:47 PM CSTSTMA Comment: ----ADDITIONAL INFORMATION---- Standard intensity warfarin therapeutic range: 2.0 to 3.0 ?? High intensity warfarin therapeutic range: 2.5 to 3.5 Specimen (Source)Anatomical Location / LateralityCollection Method / Volume Collection TimeReceived TimeBlood (Blood, Venous)11/01/2025 1:22 PM PHYSICIAN ALLERGIST IMMUNOLOGIST 11/01/2025 1:40 PM PHYSICIAN ALLERGIST IMMUNOLOGIST Narrative Authorizing ProviderResult TypeResult StatusMarry Tim Satnam Jarvis APRN.N.P., D.N.P. LAB BLOOD ADD-ONFinal ResultPerforming OrganizationAddressCity/State/ZIP Code Phone Number [facility] [address] [place] [address], [facility] [address] [place] [address] * Troponin T, Baseline with 2 Hour/6 Hour Reflex Biomarker Panel (11/01/2025 1:22 PM PHYSICIAN ALLERGIST IMMUNOLOGIST)ComponentValueRef RangeTest MethodAnalysis TimePerformed At Pathologist SignatureTroponin T, Baseline, 5th gen<6<=10 ng/L101/02/2025 2:12 PM CSTSTMASpecimen (Source)Anatomical Location / LateralityCollection Method / VolumeCollection TimeReceived TimeBlood (Blood, Venous)11/01/2025 1:22 PM PHYSICIAN ALLERGIST IMMUNOLOGIST 11/01/2025 1:40 PM PHYSICIAN ALLERGIST IMMUNOLOGIST Narrative Authorizing ProviderResult TypeResult StatusEmaleksander Dumont Matheus BRANTLEY C.N.P., D.N.P. LAB BLOOD TROPONINFinal ResultPerforming OrganizationAddressCity/State/ZIP Code Phone Number [facility] [address] [place] [address], [place] [facility] [address] [place] [address] * Basic Metabolic Panel (11/01/2025 1:22 PM PHYSICIAN ALLERGIST IMMUNOLOGIST)ComponentValueRef RangeTest MethodAnalysis TimePerformed AtPathologist SignaturePotassium, P3.93.6 - 5.2 mmol/L101/02/2025 1:57 PM CSTSTMASodium, V353000 - 145 mmol/L101/02/2025 1:57 PM CSTSTMAChloride, T65536 - 107 mmol/L101/02/2025 1:57 PM CSTSTMABicarbonate, P23 22 - 29 mmol/L101/02/2025 1:57 PM CSTSTMAAnion Gap, P147 - 15101/02/2025 1:57 PM CSTSTMABUN (Blood Urea Nitrogen), P116 - 21 mg/dL11/01/2025 1:57 PM CSTSTMA Creatinine0.740.59 - 1.04 mg/dL11/01/2025 1:57 PM CSTSTMAEstimated GFR (eGFR) >90>=60 mL/min/BSA11/01/2025 1:57 PM CSTSTMAComment: Estimated GFR calculated using the 2020 CKD_EPI creatinine equation. Calcium, Total, P9.48.6 - 10.0 mg/dL11/01/2025 1:57 PM CSTSTMAGlucose, P9970 - 140 mg/dL11/01/2025 1:57 PM CSTSTMASpecimen (Source)Anatomical Location / LateralityCollection Method / VolumeCollection TimeReceived TimeBlood (Blood, Venous)11/01/2025 1:22 PM CST11/01/2025 1:40 PM PHYSICIAN ALLERGIST IMMUNOLOGIST Narrative Authorizing ProviderResult TypeResult StatusEmaleksander Dumont Matheus BRANTLEY C.N.P., D.N.P. LAB BLOOD ADD-ONFinal ResultPerforming OrganizationAddressCity/State/ZIP Code Phone Number [facility] [address] [place] [address], [place] [facility] [address] [place] [address] * CBC with Differential, Blood (11/01/2025 1:22 PM PHYSICIAN ALLERGIST IMMUNOLOGIST)ComponentValueRef Range Test MethodAnalysis TimePerformed AtPathologist YgcgpebzsGofwhnietn02.211.6 - 15.0 g/dL11/01/2025 1:43 PM SEEQVJEMvstcnsxon81.935.5 - 44.9 %11/01/2025 1:43 PM CSTSTMAErythrocytes4.493.92 - 5.13 x10(12)/L101/02/2025 1:43 PM CSTSTMAMCV 84.478.2 - 97.9 fL11/01/2025 1:43 PM CSTSTMARBC Distrib Width13.212.2 - 16.1 % 11/01/2025 1:43 PM CSTSTMAPlatelet Tzzkl712560 - 371 x10(9)/L101/02/2025 1:43 PM CSTSTMALeukocytes4.03.4 - 9.6 x10(9)/L101/02/2025 1:43 PM CSTSTMANeutrophils 2.241.56 - 6.45 x10(9)/L101/02/2025 1:43 PM CSTDHPMLymphocytes1.130.95 - 3.07 x10(9)/L101/02/2025 1:43 PM CSTSTMAMonocytes0.320.26 - 0.81 x10(9)/L101/02/2025 1:43 PM CSTSTMAEosinophils0.270.03 - 0.48 x10(9)/L101/02/2025 1:43 PM CSTSTMA Basophils0.050.01 - 0.08 x10(9)/L101/02/2025 1:43 PM CSTSTMASpecimen (Source) Anatomical Location / LateralityCollection Method / VolumeCollection Time Received TimeBlood (Blood, Venous)11/01/2025 1:22 PM CST11/01/2025 1:40 PM PHYSICIAN ALLERGIST IMMUNOLOGIST Narrative Authorizing ProviderResult TypeResult StatusEmma Tim Osullivanfloydsadie KARON, C.N.P., D.N.P. LAB BLOOD ADD-ONFinal ResultPerforming OrganizationAddressCity/State/ZIP Code Phone Number [facility] [address] [place] [address], [facility] [address] [place] [address] DHPM [facility] [address] [place] [address] * ECG 12 Lead (11/01/2025 11:30 AM PHYSICIAN ALLERGIST IMMUNOLOGIST)ComponentValueRef RangeTest Method Analysis TimePerformed AtPathologist SignatureVentricular Rate ECG/Cyy35EUE MUSEPR Ktgepsvn985jdLYUUVHBQ Kyitcwsj94pgULYSXC Hkbfpyjc777khONKXURA Interval 430msMUSEP Cacz86dhfolpiLBEMG Pijk92nuqpazdHMCTJ Wave Toox56tapemtjOBME Specimen (Source)Anatomical Location / LateralityCollection Method / Volume Collection TimeReceived Time11/01/2025 11:30 AM CST11/01/2025 11:50 AM PHYSICIAN ALLERGIST IMMUNOLOGIST Impressions MUSE - 11/01/2025 11:50 AM PHYSICIAN ALLERGIST IMMUNOLOGIST Normal sinus rhythm Nonspecific T wave abnormality When compared with ECG of 29-Oct-2025 22:41, No significant change was found Reviewed by LEONEL Khan Narrative Procedure Note Frank Rodriguez M.D. - 11/01/2025 IMPRESSION: Normal sinus rhythm Nonspecific T wave abnormality When compared with ECG of 29-Oct-2025 22:41, No significant change was found Reviewed by LEONEL Khan Authorizing ProviderResult TypeResult StatusEmma Tim Matheus BRANTLEY, C.N.P., D.N.P. ECG ORDERABLESFinal ResultPerforming OrganizationAddressCity/State/ZIP CodePhone Number MUSE NA documented in this encounter Visit Diagnoses Diagnosis Abdominal Pain- Primary Abdominal Pain Pain Chest Pain Left Lower Quadrant documented in this encounter Admitting Diagnoses Diagnosis Abdominal Pain documented in this encounter Administered Medications Medication OrderMAR ActionAction DateDoseRateSite acetaminophen tablet 1,000 mg (TylenoL) 1,000 mg, oral, Once, On 11/01/25 at 1305, For 1 dose Given11/01/2025 1:28 PM CST1,000 mg acetaminophen tablet 1,000 mg (TylenoL) 1,000 mg, oral, Every 6 hours PRN, mild pain or score 1-3 of 10, Starting on Sun11/01/25 at 1845, Check temperature prior to administration Given11/03/2025 9:10 AM CST1,000 avJhnkh9111/03/2025 1:14 AM CST1,000 mgGiven 11/02/2025 6:31 PM CST1,000 mg acyclovir tablet 400 mg (Zovirax) 400 mg, oral, Once, On Sun11/01/25 at 1520, For 1 dose, Drug Monitoring Program: Pharmacist to adjust medication dosing based on indication and drug clearance factors., Indications: Prophylaxis, medical Indications:Prophylaxis, [id number]/14/2025 3:42 PM [id number] mg acyclovir tablet 400 mg (Zovirax) 400 mg, oral, 2 times daily, First dose on Sun11/02/25 at 0900, Drug Monitoring Program: Pharmacist to adjust medication dosing based on indication and drug clearance factors., Indications: Prophylaxis, medical Indications:Prophylaxis, [id number]/15/2025 9:43 AM [id number] mg amLODIPine tablet 5 mg (Norvasc) 5 mg, oral, Daily, First dose on Sun11/03/25 at 1200 Given11/03/2025 1:08 PM CST5 mg ARIPiprazole tablet 10 mg (Abilify) 10 mg, oral, Daily, First dose on Sun11/02/25 at 0900 Given11/03/2025 9:10 AM CST10 [id number]/02/2025 9:44 AM CST10 mg buprenorphine 5 mcg/hour 1 patch (Butrans) 1 patch, transdermal, Administer over 7 Days, Weekly, First dose on Sun11/02/25 at 0900, Indications: Chronic Pain/Nonacute Pain Indications:Chronic Pain/Nonacute PainMedication Xiwfdwy4611/02/2025 9:44 AM CST1 patchRight Arm cefdinir capsule 300 mg (Omnicef) 300 mg, oral, 2 times daily before morning and evening meals, First dose (after last modification) on Sun11/01/25 at 1900, For 5 days, Administer 2 hours before or 6 hours after taking magnesium, aluminum (antacids, laxatives) or calcium and iron supplements (multivitamins); may be taken with calcium or iron if given with food., Drug Monitoring Program: Pharmacist to adjust medication dosing based on indication and drug clearance factors., Indications: Lower UTI, Non-Catheter Indications:Lower UTI, Non-TjmvnemmDmrbw00/16/2025 9:10 AM HVT377 mgGiven 11/02/2025 5:34 PM ZWW954 qoUwhay0611/02/2025 5:48 AM VLQ369 mg cholecalciferol (vitamin D3) tablet 50 mcg 50 mcg, oral, Daily, First dose on Sun11/02/25 at 0900, cholecalciferol (vitamin D3) orderable wasinterchanged for cholecalciferol (vitamin D3) tablet/capsule Given11/03/2025 9:10 AM CST50 gcpCjaaj90/15/2025 9:43 AM CST50 mcg diatrizoate meglumine-diatrizoate sodium 66-10 % solution 90 mL (Gastrografin) 90 mL, oral, Once in imaging, contrast, Starting on Sun11/03/25 at 1142, For [address] capsule 120 mg (Cymbalta) 120 mg, oral, Daily, First dose on Sun11/02/25 at 0900, See tube feeding guidelines for tube feeding administration instructions. Given11/03/2025 9:11 AM SSB598 wdEtkew8811/02/2025 9:43 AM DGB243 mg HYDROmorphone (PF) injection 0.5 mg (Dilaudid) 0.5 mg, intravenous, Once, On Sun11/01/25 at 2200, For 1 dose Given11/01/2025 9:49 PM CST0.5 mg HYDROmorphone (PF) injection 0.5 mg (Dilaudid) 0.5 mg, intravenous, Once, On Sun11/02/25 at 2115, For 1 dose Given11/02/2025 9:18 PM CST0.5 mg HYDROmorphone (PF) injection 1 mg (Dilaudid) 1 mg, intravenous, Once, On Sun11/01/25 at 1305, For 1 dose Given11/01/2025 1:30 PM CST1 mg HYDROmorphone tablet 2 mg (Dilaudid) 2 mg, oral, Once, On Sun11/01/25 at 1514, For 1 dose Given11/01/2025 3:27 PM CST2 mg HYDROmorphone tablet 3 mg (Dilaudid) 3 mg, oral, Every 3 hours PRN, severe pain or score 7-10 of 10, Starting on Sun11/01/25 at 1846, For 2 days, Indications: Acute Pain Indications:Acute EvrhKbyjm16/15/2025 4:54 AM CST3 wrKybxr5311/02/2025 12:17 AM CST3 xkJenbm7811/01/2025 8:02 PM CST3 mg HYDROmorphone tablet 3 mg (Dilaudid) 3 mg, oral, Every 3 hours PRN, moderate pain or score 4-6 of 10, severe pain or score 7-10 of 10, Starting on Sun11/02/25 at 0559, For 1 day, Indications: Acute Pain Indications:Acute BugwIhnkr48/15/2025 2:13 PM CST3 hdEwzal4511/02/2025 11:15 AM CST3 mg iohexoL 140 mg iodine/mL solution 50 mL (Omnipaque) 50 mL, oral, Once in imaging, contrast, Starting on Sun11/03/25 at 1238, For 1 dose ketorolac injection 15 mg (ToradoL) 15 mg, intravenous, Once, On Sun11/01/25 at 1305, For 1 dose, Adult IV push rate: Over 15 seconds.Peds IV push rate: Over 1 minute. Doses > 15 mg IV/IM are discouraged due to lack of additional analgesic benefit. Given11/01/2025 1:30 PM CST15 mg Lactated Ringer's 100 mL/hr, intravenous, Continuous, Starting on Sun11/03/25 at 1430, For 10 hours New 11/03/2025 3:01 PM PHD868 mL/hr100 mL/hr lidocaine viscous 2 % 15 mL, alum-mag hydroxide-simeth 30 mL suspension 45 mL, oral, Once, On Sun11/01/25 at 1915, For 1 dose, Mix ingredients prior to administration Given11/01/2025 7:37 PM CST45 mL melatonin tablet 5 mg 5 mg, oral, Daily at bedtime, First dose on Sun11/01/25 at 2100 11/02/2025 9:17 PM CST5 dkJjpso4411/01/2025 8:02 PM CST5 mg melatonin tablet 5 mg 5 mg, oral, Once, On Sun11/02/25 at 0215, For 1 dose Given11/02/2025 1:53 AM CST5 mg metoclopramide tablet 10 mg (Reglan) 10 mg, oral, 4 times daily before meals and bedtime, First dose on Sun11/01/25 at 2100 11/03/2025 1:08 PM CST10 zgBoyag1611/03/2025 9:10 AM CST10 mfUszuh7911/02/2025 8:33 PM CST10 mg NaCl 0.9 % bolus 1,000 mL 1,000 mL, intravenous, at 1,000 mL/hr, Administer over 1 Hours, Once, On Sun11/01/25 at 1305, For 1 dose New 11/01/2025 1:21 PM CST1,000 [id number] mL/hr ondansetron (PF) injection 4 mg (Zofran) 4 mg, intravenous, Once, On Sun11/01/25 at 1320, For 1 dose Given11/01/2025 1:30 PM CST4 mg ondansetron (PF) injection 4 mg (Zofran) 4 mg, intravenous, Every 6 hours PRN, nausea, vomiting, Starting on Sun11/01/25 at 1943 11/03/2025 2:47 PM CST4 iyYgzgw6211/03/2025 8:13 AM CST4 uoRgiiy4111/02/2025 6:47 AM CST4 mg penicillin V potassium tablet 500 mg (Veetids) 500 mg, oral, Once, On Sun11/01/25 at 1520, For 1 dose, Drug Monitoring Program: Pharmacist to adjust medication dosing based on indication and drug clearance factors., Indications: Prophylaxis, medical Indications:Prophylaxis, gegbnokHtbxh26/14/2025 3:42 PM DGG019 mg sennosides tablet 8.6 mg (Senokot) 8.6 mg, oral, 2 times daily, First dose on Sun11/01/25 at 2100 11/03/2025 9:10 AM CST8.6 laApgzr9411/02/2025 8:33 PM CST8.6 mgGiven 11/02/2025 9:43 AM CST8.6 mgdocumented in this encounter Active and Recently Administered Medications Times are shown in PHYSICIAN ALLERGIST IMMUNOLOGIST.Medication Order acetaminophen tablet 1,000 mg (TylenoL) (COMPLETED) 1,000 mg, oral, Once, On 11/01/25 at 1305, For 1 dose * 1328 (Given - Provider: Marky Pierce IV RKatalinaNKatalina) acyclovir tablet 400 mg (Zovirax) (COMPLETED) 400 mg, oral, Once, On 11/01/25 at 1520, For 1 dose, Drug Monitoring Program: Pharmacist to adjust medication dosing based on indication and drug clearance factors., Indications: Prophylaxis, medical * 1542 (Given - Provider: Mallory Lux RFritz) acyclovir tablet 400 mg (Zovirax) (CANCELED) 400 mg, oral, 2 times daily, First dose on Sun11/02/25 at 0900, Drug Monitoring Program: Pharmacist to adjust medication dosing based on indication and drug clearance factors., Indications: Prophylaxis, medical * 0943 (Given - Provider: Moy Pratt) * 2121 (Not Given - Provider: Cynthia Kelley R.N. - Reason: Discontinued) amLODIPine tablet 5 mg (Norvasc) 5 mg, oral, Daily, First dose on Sun11/03/25 at 1200 * 1308 (Given - Provider: Kyle Connor R.N.) ARIPiprazole tablet 10 mg (Abilify) 10 mg, oral, Daily, First dose on Sun11/02/25 at 0900 * 0944 (Given - Provider: Moy Pratt) * 0910 (Given - Provider: Kyle Connor R.N.) buprenorphine 5 mcg/hour 1 patch (Butrans) 1 patch, transdermal, Administer over 7 Days, Weekly, First dose on Sun11/02/25 at 0900, Indications: Chronic Pain/Nonacute Pain * 0944 (Medication Applied - Provider: Moy Pratt) * 1736 (Due: Medication Removed - Provider: Discharge Provider, Automatic - Comment: Time automatically adjusted from order being discontinued) cefdinir capsule 300 mg (Omnicef) 300 mg, oral, 2 times daily before morning and evening meals, First dose (after last modification) on Sun11/01/25 at 1900, For 5 days, Administer 2 hours before or 6 hours after taking magnesium, aluminum (antacids, laxatives) or calcium and iron supplements (multivitamins); may be taken with calcium or iron if given with food., Drug Monitoring Program: Pharmacist to adjust medication dosing based on indication and drug clearance factors., Indications: Lower UTI, Non-Catheter * 2001 (Not Given - Provider: Marlys Gamboa R.N. - Reason: Order parameters not met - Comment: pt already ate) * 0548 (Given - Provider: Daniela Santamaria R.N.) * 1734 (Given - Provider: Moy Pratt) * 0910 (Given - Provider: Kyle Connor R.N. - Comment: Nausea) * 1600 (Due) cholecalciferol (vitamin D3) tablet 50 mcg 50 mcg, oral, Daily, First dose on Sun11/02/25 at 0900, cholecalciferol (vitamin D3) orderable wasinterchanged for cholecalciferol (vitamin D3) tablet/capsule * 0943 (Given - Provider: Moy Pratt) * 0910 (Given - Provider: Kyle Connor R.N.) DULoxetine DR capsule 120 mg (Cymbalta) 120 mg, oral, Daily, First dose on Sun11/02/25 at 0900, See tube feeding guidelines for tube feeding administration instructions. * 0943 (Given - Provider: Moy Pratt) * 0911 (Given - Provider: Kyle Connor R.N.) enoxaparin injection 40 mg (Lovenox) 40 mg, subcutaneous, Every 24 hours scheduled, First dose on Sun11/01/25 at 1830 * 1937 (Not Given - Provider: Rodolfo Mg R.N. - Reason: Patient/family refused) * 0943 (Not Given - Provider: Moy Pratt - Reason: Patient/family refused) * 0914 (Not Given - Provider: Kyle Connor R.N. - Reason: Patient/family refused) HYDROmorphone (PF) injection 0.5 mg (Dilaudid) (COMPLETED) 0.5 mg, intravenous, Once, On 11/01/25 at 2200, For 1 dose * 2148 (Given - Provider: Marlys Gamboa R.N.) HYDROmorphone (PF) injection 0.5 mg (Dilaudid) (COMPLETED) 0.5 mg, intravenous, Once, On Sun11/02/25 at 2115, For 1 dose * 2117 (Given - Provider: Cynthia Kelley R.N.) HYDROmorphone (PF) injection 1 mg (Dilaudid) (COMPLETED) 1 mg, intravenous, Once, On 11/01/25 at 1305, For 1 dose * 1330 (Given - Provider: Marky Pierce IV RKatalinaNKatalina) HYDROmorphone tablet 2 mg (Dilaudid) (COMPLETED) 2 mg, oral, Once, On 11/01/25 at 1514, For 1 dose * 152 (Given - Provider: Mallory Lux R.N.) ketorolac injection 15 mg (ToradoL) (COMPLETED) 15 mg, intravenous, Once, On 11/01/25 at 1305, For 1 dose, Adult IV push rate: Over 15 seconds.Peds IV push rate: Over 1 minute. Doses > 15 mg IV/IM are discouraged due to lack of additional analgesic benefit. * 1330 (Given - Provider: Marky Pierce IV RKatalinaNKatalina) lidocaine viscous 2 % 15 mL, alum-mag hydroxide-simeth 30 mL suspension (COMPLETED) 45 mL, oral, Once, On 11/01/25 at 1915, For 1 dose, Mix ingredients prior to administration * 1936 (Given - Provider: Rodolfo Mg R.N.) melatonin tablet 5 mg 5 mg, oral, Daily at bedtime, First dose on Sun11/01/25 at 2100 * 2001 (Given - Provider: Marlys Gamboa R.N.) * 2116 (Given - Provider: Cynthia Kelley R.N.) melatonin tablet 5 mg (COMPLETED) 5 mg, oral, Once, On Sun11/02/25 at 0215, For 1 dose * 0153 (Given - Provider: Elise Mckinney L.P.N., R.N.) metoclopramide tablet 10 mg (Reglan) 10 mg, oral, 4 times daily before meals and bedtime, First dose on 11/01/25 at 2100 * 2002 (Given - Provider: Marlys Gamboa R.N.) * 0548 (Given - Provider: Daniela Santamaria RKatalinaNKatalina) * 1115 (Given - Provider: Moy Pratt) * 1734 (Given - Provider: Moy Pratt) * 2033 (Given - Provider: Vickie RoqueNKatalina) * 0910 (Given - Provider: Kyle Connor R.N. - Comment: Nausea) * 1308 (Given - Provider: Kyle Connor R.N. - Comment: Earlier dose give late due to nausea.) * 1600 (Due) NaCl 0.9 % bolus 1,000 mL (COMPLETED) 1,000 mL, intravenous, at 1,000 mL/hr, Administer over 1 Hours, Once, On 11/01/25 at 1305, For 1 dose * 1321 (New Bag - Provider: Marky Pierce IV, RKatalinaNKatalina) * 1543 (Stopped - Provider: Mallory Lux RFritz) ondansetron (PF) injection 4 mg (Zofran) (COMPLETED) 4 mg, intravenous, Once, On 11/01/25 at 1320, For 1 dose * 1330 (Given - Provider: Marky Pierce IV, R.NKatalina) penicillin V potassium tablet 500 mg (Veetids) (COMPLETED) 500 mg, oral, Once, On 11/01/25 at 1520, For 1 dose, Drug Monitoring Program: Pharmacist to adjust medication dosing based on indication and drug clearance factors., Indications: Prophylaxis, medical * 1542 (Given - Provider: Mallory Lux R.N.) penicillin V potassium tablet 500 mg (Veetids) 500 mg, oral, 2 times daily, First dose on 11/07/25 at 0900, Drug Monitoring Program: Pharmacist to adjust medication dosing based on indication and drug clearance factors., Indications: Prophylaxis, medical sennosides tablet 8.6 mg (Senokot) 8.6 mg, oral, 2 times daily, First dose on Sun11/01/25 at 2100 * 2001 (Given - Provider: Marlys Gabmoa R.N.) * 0943 (Given - Provider: Moy Pratt) * 2032 (Given - Provider: Cynthia Kelley R.N.) * 0910 (Given - Provider: Kyle Connor R.N.) Medication Order// Lactated Ringer's 100 mL/hr, intravenous, Continuous, Starting on Sun11/03/25 at 1430, For 10 hours * 1501 (New Bag - Provider: Kyle Connor R.N.) * 1721 (Stopped - Provider: Stefan Albarado R.N.) Medication Order/ acetaminophen tablet 1,000 mg (TylenoL) 1,000 mg, oral, Every 6 hours PRN, mild pain or score 1-3 of 10, Starting on Sun11/01/25 at 1845, Check temperature prior to administration * 2124 (Given - Provider: Marlys Gamboa R.N.) * 0454 (Given - Provider: Daniela Santamaria R.N.) * 1831 (Given - Provider: Moy Pratt) * 0114 (Given - Provider: Cynthia Kelley R.N.) * 0910 (Given - Provider: Kyle Connor R.N.) * 1424 (Return to Cabinet - Provider: Wesley Talbot R.N.) alteplase 1 mg/mL injection 2 mg (Cathflo Activase) 2 mg, intra-catheter, As needed, Per catheter lumen. May repeat x1 dose in 2 hours, Starting on Sun11/01/25 at 1809, Maximum dose is 4 mg per catheter [...] oral, Daily PRN, heartburn, indigestion, Starting on Sun11/01/25 at 1809, Doseslisted are in mg of elemental calcium. Take with food. 500 mg calcium carbonate contains 200 mg of elemental calcium. carboxymethylcellulose 0.5 % ophthalmic solution 1 drop (Refresh Plus) 1 drop, both eyes, 4 times daily PRN, dry eyes, Starting on Sun11/01/25 at 1809 diatrizoate meglumine-diatrizoate sodium 66-10 % solution 90 mL (Gastrografin) 90 mL, oral, Once in imaging, contrast, Starting on Sun11/03/25 at 1142, For 1 dose * 1226 (Not Given - Provider: Kyle Connor R.N. - Reason: Other - Comment: Switching to Omnipaque.) HYDROmorphone tablet 3 mg (Dilaudid) (CANCELED) 3 mg, oral, Every 3 hours PRN, severe pain or score 7-10 of 10, Starting on Sun11/01/25 at 1846, For 2 days, Indications: Acute Pain * 2001 (Given - Provider: Marlys Gamboa R.N.) * 0017 (Given - Provider: Daniela Santamaria RKatalinaN.) * 0454 (Given - Provider: Daniela Santamaria RKatalinaN.) HYDROmorphone tablet 3 mg (Dilaudid) () 3 mg, oral, Every 3 hours PRN, moderate pain or score 4-6 of 10, severe pain or score 7-10 of 10, Starting on Sun11/02/25 at 0559, For 1 day, Indications: Acute Pain * 1115 (Given - Provider: Moy Pratt) * 1413 (Given - Provider: Moy Pratt) iohexoL 140 mg iodine/mL solution 50 mL (Omnipaque) 50 mL, oral, Once in imaging, contrast, Starting on Sun11/03/25 at 1238, For 1 dose naloxone nasal spray 4 mg (Narcan) 4 mg, nasal, As needed, reversal, Starting on Sun11/01/25 at 1809 ondansetron (PF) injection 4 mg (Zofran) 4 mg, intravenous, Every 6 hours PRN, nausea, vomiting, Starting on 11/01/25 at 1943 * 0647 (Given - Provider: Daniela Santamaria R.N.) * 0813 (Given - Provider: Kyle Connor R.N.) * 1447 (Given - Provider: Kyle Connor R.N.) polyethylene glycol powder packet 1 packet (Miralax) 1 packet, oral, Daily PRN, constipation, Starting on 11/01/25 at 1809, Dissolve in 240 mLs (8 ounces) of water prior to giving. Avoid mixing with starch-based thickened liquids. documented in this encounter Additional Health Concerns InfectionOnset DateLast IndicatedResolved TimeProtective Auagviqooit68/14/2023 03/02/2023ssessmentNoted TimePHQ-9 Depression Total Score: 9:42 AM CDTdocumented as of this encounter Care Teams Team MemberRelationshipSpecialtyStart DateEnd Date Elsewhere, Pcp PCP - GeneralInternal Sbyzkuvu48/5/25documented as of this encounter
--- OUTSIDE RECORDS SUMMARY | 2025-11-05 02:26 | XMS_ITS | Clinical Summary ---
Author Organization [facility] Address [address] [place] [id number] Care Team Providers Care Power Machine Operator Name Role Phone System, Provider Not In Primary Care Provider Un available Allergies Active AllergyReactionsCriticalityNoted DateCommentsAmoxicillinSwelling 03/01/20178911CerhiqnguQoiqfvje06/13/2017Grapefruit ExtractOther (See Comments) 06/28/2021 Interaction with Tasigna medication Interaction with Tasigna medication Medications MedicationSigDispense QuantityRefillsLast FilledStart DateEnd DateStatus prochlorperazine (COMPAZINE) 10 MG tablet Take as oolvup5103/22/2021ctive ondansetron (ZOFRAN) 4 MG tablet Take as nmeehi2302/09/2021ctive hydrochlorothiazide (HYDRODIURIL) 25 MG tablet Take 25 [...] Indications:Chronic migraine without aura, intractable, without status [id number] UnitsIMEVERY 3 [id number] Social History Tobacco UseTypesPacks/DayYears UsedDateSmoking Tobacco: NeverSmokeless Tobacco: Never Tobacco Cessation:Counseling Given: Not Answered PHQ-2AnswerDate RecordedPHQ-2 Dpaty336dolescent EducationAnswerDate RecordedGetting School Help NeededNot on file08/11/2023CommentsUnknown Sex and Gender InformationValueDate RecordedSex Assigned at BirthNot on file Legal GgeSwyssl31/22/2022 12:12 PM CDTGender IdentityNot on fileSexual OrientationNot on file Last Filed Vital Signs Vital SignReadingTime TakenCommentsBlood Evwnetch197/8104 2:36 PM CDT [id number] 2:36 PM CDTTemperature--Respiratory Rate--Oxygen Saturation-- Inhaled Oxygen Concentration--Weight--Height--Body Mass Index-- Plan of Treatment Not on file [place] [facility] [place] Address: [address] [place] [address] [facility] [place] Address: [address] [place] [address] Care Teams Team MemberRelationshipSpecialtyStart DateEnd Date System, Provider Not In PCP - Generalinic06/08/22
--- OUTSIDE RECORDS SUMMARY | 2025-11-05 02:27 | XMS_ITS | Clinical Summary ---
Author Organization [facility] Address [address] [place] [address] Care Team Providers Care Upper Doubler Name Role Phone Antoinette Palacio PhD, LP Unavailable [phone] Shweta Graciakim Huber CLINICAL PRODUCT SPECIALIST Unavailable [phone] Unavailable [phone] Staff, Other Clinical Unavailable Unavailabl e Ermelinda Pierre MD Primary Care Prov ider Allergies Active AllergyReactionsCriticalityNoted PlulXldmkszjLjudqfczcrlCnqzh39/13/2017 GrapefruitOther - Describe In Comment Field06/28/2021 Interaction with Tasigna medication Grapefruit ExtractOther - Describe In Comment Field06/28/2021 Interaction with Tasigna medication Interaction with Tasigna medication GdrbgoqjbYkbuo80/13/2017 Medications MedicationSigDispense QuantityRefillsLast FilledStart DateEnd DateStatus dasatinib [...] DateEncounters for administrative /14/2025 Encounters for administrative hxfoemeg30/04/2024Obesity (BMI 30.0-34.9) 09/20/2022Insulin hetattagdq80/02/2022besity, Class II, BMI 35-39.908/ Weight gain07/07/2022Eating /19/2022hronic mixed headache syndrome 06/17/2019Localized enlarged lymph nodes04/03/2019Pain in joint03/06/2019Chronic myeloid owuebaij34/23/2019Controlled substance agreement tuzzsc3904/09/2017 Overview (03/19/2018): Signed 11/20/2016 Dr Mady Yanez Psychiatry Relationship fpgxjjeh99/23/3308Jzamr84/23/2017Major depressive disorder, recurrent episode, fioigorx85/28/2016Generalized anxiety acfuotmj46/19/2015 Adjustment disorder with anxious mood01/07/20158282Oyvrhpnbacnlv86/16/2013Tension headache Resolved Problems ProblemNoted DateDiagnosed DateResolved DateDepression, major, recurrent, doxknsib18Major depressive disorder, recurrent, severe without psychotic bkbucaau47/17/Depression, phgeeoyppm06 Supervision of normal first jujnhmtsv10/18/ttention deficit disorder without mention of wwyaacuruhcob56Major depressive disorder, recurrent episode, qfvcmolnglm25 Encounters DateTypeDepartmentCare KnxqEtjpbkuoiiw63/17/2025Nurse Triage [facility] [address] [place] [address] Ermelinda Pierre MD Abdominal Pain10/29/2025 9:00 AM POWERHOUSE OPERATOR - 10/29/2025 11:59 PM CSTHospital Encounter [facility] [address] [place] [address] Generalized anxiety disorder; Major depressive disorder, recurrent episode, moderate (HC)10/29/2025Travel 10/28/2025Nurse Triage [facility] [address] [place] [address] Ermelinda Pierre MD Abdominal Pain10/27/2025Telephone [address] [address] Antonina Donovan DT10/27/2025Telephone [address] [address] Belkis Weathers (This technical writer spoke with the patient, who is currently in urgent care. Spoke about attendance and discharging to use day treatment benefit when healthier or a referral to [facility].)10/27/2025Nurse Triage [facility] [address] [place] [address] Ermelinda Pierre MD Abdominal Pain10/22/2025Telephone [address] [address] Irina Hazel Jslhijajsgj67/03/2025 9:00 AM POWERHOUSE OPERATOR - 10/21/2025 11:59 PM CSTHospital Encounter [address] [address] Generalized anxiety disorder; Major depressive disorder, recurrent episode, moderate (HC)10/20/2025 9:00 AM POWERHOUSE OPERATOR - 10/20/2025 11:59 PM CSTHospital Encounter [address] [address] Generalized anxiety disorder; Major depressive disorder, recurrent episode, moderate (HC)10/20/2025Travel 10/14/2025 8:58 AM POWERHOUSE OPERATOR - 10/14/2025 11:59 PM CSTHospital Encounter [address] [address] Generalized anxiety disorder; Major depressive disorder, recurrent episode, moderate (HC)10/14/2025Travel 10/08/2025 8:56 AM POWERHOUSE OPERATOR - 10/08/2025 11:59 PM CSTHospital Encounter [address] [address] Generalized anxiety disorder; Major depressive disorder, recurrent episode, moderate (HC)10/08/2025Travel 10/07/2025 8:57 AM POWERHOUSE OPERATOR - 10/07/2025 11:59 PM CSTHospital Encounter [facility] [address] [place] [address] Generalized anxiety disorder; Major depressive disorder, recurrent episode, moderate (HC)10/06/2025 8:59 AM POWERHOUSE OPERATOR - 10/06/2025 11:59 PM CSTHospital Encounter [facility] [address] [place] [address] Generalized anxiety disorder; Major depressive disorder, recurrent episode, moderate (HC)10/06/2025Telephone [facility] [address] [place] [address] Iris Victor, [facility] Care Coordination (Re-Engagement )10/06/20258134Wkvzgu01/13/2025Telephone [facility] [address] [place] [address] Irina Hazel treatment group09/30/2025 8:50 AM POWERHOUSE OPERATOR - 09/30/2025 11:59 PM CSTHospital Encounter [facility] [address] [place] [address] Generalized anxiety disorder; Major depressive disorder, recurrent episode, moderate (HC)09/29/2025 8:55 AM POWERHOUSE OPERATOR - 09/29/2025 11:59 PM CSTHospital Encounter [facility] [address] [place] [address] Generalized anxiety disorder; Major depressive disorder, recurrent episode, moderate (HC)09/29/2025Travel 09/24/2025 9:00 AM POWERHOUSE OPERATOR - 09/24/2025 11:59 PM CSTHospital Encounter [facility] [address] [place] [address] Generalized anxiety disorder; Major depressive disorder, recurrent episode, moderate (HC)09/23/2025 8:56 AM POWERHOUSE OPERATOR - 09/23/2025 11:59 PM CSTHospital Encounter [facility] [address] [place] [address] Generalized anxiety disorder; Major depressive disorder, recurrent episode, moderate (HC)09/23/2025Travel 09/22/2025Telephone [facility] [address] [place] [address] Irina Hazel Day treatment group09/17/2025 8:55 AM CDT - 09/17/2025 11:59 PM CDTHospital Encounter [facility] [address] [place] [address] Generalized anxiety disorder; Major depressive disorder, recurrent episode, moderate (HC)09/17/2025Travel 09/16/2025 8:55 AM CDT - 09/16/2025 11:59 PM CDTHospital Encounter [facility] [address] [place] [address] Generalized anxiety disorder; Major depressive disorder, recurrent episode, moderate (HC)09/15/2025 8:57 AM CDT - 09/15/2025 11:59 PM CDTHospital Encounter [facility] [address] [place] [address] Generalized anxiety disorder; Major depressive disorder, recurrent episode, moderate (HC)09/15/2025Travel 09/11/2025 10:30 AM CDTPhone Office Visit [address] [address] Renita Pichardo PsyD, LP Jxhogvrhmtmtz94/23/2025 8:58 AM CDT - 09/10/2025 11:59 PM CDTHospital Encounter [facility] [address] [place] [address] Generalized anxiety disorder; Major depressive disorder, recurrent episode, moderate (HC)09/09/2025 8:57 AM CDT - 09/09/2025 11:59 PM CDTHospital Encounter [facility] [address] [place] [address] Generalized anxiety disorder; Major depressive disorder, recurrent episode, moderate (HC)09/09/2025Travel 09/08/2025Telephone [facility] [address] [place] [address] Ivy Garcia RN [facility] DT09/03/2025 8:54 AM CDT - 09/03/2025 11:59 PM CDTHospital Encounter [facility] [address] [facility] [place] [address] Generalized anxiety disorder; Major depressive disorder, recurrent episode, moderate (HC)09/03/2025Travel 09/02/2025 8:57 AM CDT - 09/02/2025 11:59 PM CDTHospital Encounter [facility] [address] [place] [address] Generalized anxiety disorder; Major depressive disorder, recurrent episode, moderate (HC)09/01/2025 9:00 AM CDT - 09/01/2025 11:59 PM CDTHospital Encounter [address] [address] Generalized anxiety disorder; Major depressive disorder, recurrent episode, moderate (HC)09/01/2025Travel 08/27/2025 9:00 AM CDT - 08/27/2025 11:59 PM CDTHospital Encounter [address] [address] Generalized anxiety disorder; Major depressive disorder, recurrent episode, moderate (HC)08/27/2025Telephone [address] [address] Antonina Donovan [facility] DT08/27/20251822Hpcwak66/08/2025 9:00 AM CDT - 08/26/2025 11:59 PM CDTHospital Encounter [facility] [address] [place] [address] Generalized anxiety disorder; Major depressive disorder, recurrent episode, moderate (HC)08/25/2025 9:00 AM CDT - 08/25/2025 11:59 PM CDTHospital Encounter [facility] [address] [place] [address] Generalized anxiety disorder; Major depressive disorder, recurrent episode, moderate (HC)08/25/2025Travel 08/18/2025 11:20 AM CDTOffice Visit [facility] [address] [place] [address] Fercho Fragoso MD Nausea (Body aches, sob and chills x 1 week and fatigue )08/17/2025 12:26 PM CDT - 08/17/2025 11:59 PM CDTHospital Encounter [facility] [address] [place] [address] Adjustment disorder with anxious mood (Primary Dx); Generalized anxiety disorder; Major depressive disorder, recurrent episode, moderate (HC)08/17/2025Travel 08/14/20258927Govmev40/25/2025Telephone [facility] [address] [place] [address] Pcp, No Appointment Akqpktqu13/24/2025Telephone [facility] [address] [place] [address] Renita Pichardo, Henna, LP Late Cancel Appointmentfrom Last 3 Months Immunizations ImmunizationAdministration DatesNext DueCOVID-19 vaccine (Moderna 100mcg/0.5mL) MD MISTYV101/11/2021Hepatitis B (Adult)03/07/2001,10/31/2000,09/19/2000Hepatitis B (Peds)02/19/2001,10/31/2000,09/19/2000Human Papilloma Virus Nugzqaz0511/08/2007, 06/27/2007,04/26/2007Influenza Virus, Lfacexpitus88/15/2012,08/14/2011, 10/19/2003,09/17/2002,01/22/2002Influenza, IIV3 (Age 6-35 mos)08/14/2011 Influenza, IIV3 (Age >=3 years)09/02/2012,08/14/2011,10/19/2003,09/17/2002, 01/22/2002Influenza, JCX748/06/20198613PBG1504/25/2001,03/07/2001Meningococcal Vaccine (Menactra)04/26/2007Td (Age >=7 Years)07/10/2003Tdap1 Family History Medical HistoryRelationNameCommentsCystic fibrosisBrotherHyperlipidemiaFather HypertensionFatherEndometriosisMaternal AuntCoronary artery diseaseMaternal GrandfatherDiabetesMaternal GrandfatherOtherMaternal Grandfathersubstance abuse dependenceCancer-breastMaternal GrandmotherObesityMaternal GrandmotherOther Maternal Grandmothersubstance abuse dependenceAnxiety disorderMotherDepression MotherEndometriosisMotherHyperlipidemiaMotherHypertensionMotherObesityMother EndometriosisOther 1maternal cousinsCancer-breastOther 2maternal great grandma Cancer-breastOther 3maternal cousinCancer-breastPaternal AuntDementiaPaternal MnaywmljwnpXztykaffMcklVqxvzgHrostgqfDmqubkcKaeyfd2PlvunpOvskxdrw (Age 50) motorcycle accidentMaternal AuntMaternal GrandfatherDeceased (Age 81)Maternal GrandmotherDeceased (Age 63)BREAST CXMotherAliveOther 1Other 2Other 3Paternal AuntPaternal GrandfatherDeceasedPaternal GrandmotherAlive Social History Tobacco UseTypesPacks/DayYears UsedDateSmoking Tobacco: NeverSmokeless Tobacco: Never Tobacco Cessation:Counseling Given: Not Answered Alcohol UseStandard Drinks/WeekCommentsNo0 (1 standard drink = 0.6 oz pure alcohol)PHQ-2AnswerDate RecordedPHQ-2 TOTAL KFBBG118Social Connections AnswerDate RecordedFrequency of Communication with Friends and Kvcgak010 Alcohol UseAnswerDate RecordedHow often do you have a drink containing alcohol?0 03/28/2022verage Number of DrinksNot on file03/28/2022Frequency of Binge DrinkingNot on file03/28/2022Financial Resource StrainAnswerDate Recorded Difficulty of Paying Living Asemsork645ifficulty of Paying Living Edciawam031/26/2022Food InsecurityAnswerDate RecordedWorried About Running Out of Food in the Last Qtza971Transportation NeedsAnswerDate RecordedLack of Transportation (Medical)Housing StabilityAnswerDate RecordedUnable to Pay for Housing in the Last Msey086Interpersonal SafetyAnswerDate RecordedAre you being hit, kicked, pushed or yelled at (see row info)?No 11/21/2023Interpersonal Safety Abuse 12 - 18Not on file11/21/2023Interpersonal Safety Ambulatory VulnerabilityNot on file11/21/2023CommentsNoSex and Gender InformationValueDate RecordedSex Assigned at BirthNot on fileLegal Sex Gqvrou0512/02/2012 5:23 AM CSTGender IdentityNot on fileSexual OrientationNot on fileOccupationIndustryJob Start DateJob End DateK-martNot on fileNot on fileNot on file Obstetrics History GravidaParaTermPretermABIABSABEctopicMultipleLivingLive [id number] OutcomeGATotal LaborLabor/2nd/1xwKevrbiBwqZyzzTcnzGVWWrgQ2V3JfmrXxcgKjcffpqBdizc Comments:System Generated. Please review and update details.IAB Last Filed Vital Signs Vital SignReadingTime TakenCommentsBlood Sdxdryrt127/7809 11:44 AM CDT Nawcp35801/30/2025 11:44 AM LHJMczogsprguh16.8 ??C (98.2 ??F)08/18/2025 11:44 AM CDTRespiratory Lhlz908511/21/2023 9:09 AM CSTOxygen Brcwwzywih33%08/18/2025 11:44 AM CDTInhaled Oxygen Concentration--Pgmxqb710.1 kg (234 lb)08/18/2025 11:44 AM ZJVUesbuh984.7 cm (5' 8)08/18/2025 11:44 AM CDTBody Mass Index35.58008/18/2025 11:44 AM CDT Plan of Treatment DateTypeDepartmentCare Team (Latest Contact Info)Anztdgvorbc11/18/2025 10:45 AM CSTOffice Visit [facility] [address] [place] [address] [place] [address] [place] [address] 11/13/2025 3:05 PM CSTOffice Visit [facility] [address] [place] [place] [address] Ermelinda Pierre MD [address] [place] [address] Health MaintenanceDue DateLast DoneCommentsPneumococcal series for age 6-49 (1 of 2 - PCV)02/03/2008Tetanus seonblc54, 07/10/2003Pap test for age 21-65 (Verified in Care Everywhere or Patient Record), 11/25/2013, 03/03/2011, Additional history existsCOVID-19 vaccine series (2024- season)/, 03/30/2021, 03/02/2021Influenza Vaccine (#1), 09/02/2012, 09/02/2012, Additional history existsBMI (ht and wt on same day) for age 18+, 06/23/2024, 02/15/2023, Additional history existsDepression screening for age 12+, 08/18/2025, 10/02/2024, Additional history existsHepatitis B series for 19+ Bhydctdel88/19/2001, 02/19/2001, 10/31/2000, Additional history existsHPV series for age 9-42Uwgwmovug49/21/2007, 06/27/2007, 04/26/2007HIV for age 15-65 Plsrehldf14/07/2011Hepatitis C screening for age 18-46Obkhjkueg47/14/2023 Procedures Procedure NamePriorityDate/TimeAssociated DiagnosisCommentsRED CELL MORPHOLOGY STAT08/18/2025 12:35 PM CDT Myalgia PLATELET ZJLENBGQLZDZ82/ 12:35 PM CDT Myalgia MANUAL LXAJEEFFGTOLLKTE41/30/2025 12:35 PM CDT Myalgia CBC WITH AUTO SYVGGAAGTVXEQLLO82/30/2025 12:35 PM CDT Myalgia C-REACTIVE CVLXQKQFCZA82/30/2025 12:35 PM CDT Myalgia CBC WITH AUTO DMRJQDMZNPFEHDPF01/30/2025 12:35 PM CDT Myalgia FNCZortdnr16/30/2025 12:35 PM CDT Myalgia ANTI XSMTyrclnu85/14/2023 1:57 PM CDT Need for hepatitis C screening test SUPERVISOR ASSEMBLY ROOM THIN PREP PAP SCREEN GXMDHIRpbeofr61/07/2014 11:15 AM POWERHOUSE OPERATOR Screening for malignant neoplasm of the cervix ANTI HIV /9Mzobaja98/07/2011 5:05 PM POWERHOUSE OPERATOR Supervision of normal first (HC) from Last 3 Months or Most Recently Relevant to Health Maintenance Results * (ABNORMAL) CBC WITH AUTO DIFFERENTIAL (08/18/2025 12:35 PM CDT)ComponentValue Ref RangeTest MethodAnalysis TimePerformed AtPathologist SignatureWHITE BLOOD COUNT3.5(L)4.5 - 11.0 thou/cu mm08/18/2025 2:12 PM [facility] LABORATORYRED BLOOD COUNT4.344.00 - 5.20 mil/cu mm08/18/2025 2:12 PM CDT [facility] IRLCAJXYOLAWCJGYYWFN43.7(L)12.0 - 16.0 g/dL08/18/2025 2:12 PM [facility] KMPMEMSJNZCIYSIVAIEA86.033.0 - 51.0 % 08/18/2025 2:12 PM [facility] LHLBDVAHPZPXM4290 - 100 fL 08/18/2025 2:12 PM [facility] COPDRNEWAIIXP62.026.0 - 34.0 pg 08/18/2025 2:12 PM [facility] XQNFZQBCMTOFUH14.532.0 - 36.0 g/dL08/18/2025 2:12 PM [facility] DIFHOLRDLXXCA97.911.5 - 15.5 %08/18/2025 2:12 PM [facility] LABORATORYPLATELET COUNT 812342 - 440 thou/cu mm08/18/2025 2:12 PM [facility] LABORATORYMPV8.26.5 - 11.0 fL08/18/2025 2:12 PM [facility] LABORATORYSpecimen (Source)Anatomical Location / LateralityCollection Method / VolumeCollection TimeReceived TimeBloodBLOOD SPECIMEN / UnknownQuest Collect / Vjiqtzl2408/18/2025 12:35 PM CDT08/18/2025 12:35 PM CDT Narrative Authorizing ProviderResult TypeResult StatusGeorrajat Fragoso MDHEMATOLOGY Final ResultPerforming OrganizationAddressCity/State/ZIP CodePhone Number [facility] [address] [place] [address] * (ABNORMAL) RED CELL MORPHOLOGY (08/18/2025 12:35 [...] CDT Narrative Authorizing ProviderResult TypeResult StatusGeorrajat Fragoso MDHEMATOLOGY Final ResultPerforming OrganizationAddressCity/State/ZIP CodePhone Number [facility] [address] [place] [address] * PLATELET ESTIMATE (08/18/2025 12:35 PM CDT)ComponentValueRef RangeTest Method Analysis TimePerformed AtPathologist SignaturePLATELET ESTIMATEAdequate Adequate, No aqiahaqy48/30/2025 2:11 PM [facility] Specimen (Source)Anatomical Location / LateralityCollection Method / Volume Collection TimeReceived TimeBloodBLOOD SPECIMEN / UnknownQuest Collect / Lxpmcse5308/18/2025 12:35 PM CDT08/18/2025 12:35 PM CDT Narrative Authorizing ProviderResult TypeResult StatusGeorge Néstor Fragoso MDHEMATOLOGY Final ResultPerforming OrganizationAddressCity/State/ZIP CodePhone Number [facility] [address] [place] [address] * (ABNORMAL) MANUAL DIFFERENTIAL (08/18/2025 12:35 PM [...] - 2.9 thou/cu mm08/18/2025 2:11 PM CDT [facility] LABORATORYMONOCYTES ABSOLUTE0.2<0.9 thou/cu mm 08/18/2025 2:11 PM [facility] LABORATORYEOSINOPHILS ABSOLUTE 0.2<0.5 thou/cu mm08/18/2025 2:11 PM [facility] BASOPHILS ABSOLUTE0.0<0.3 thou/cu mm08/18/2025 2:11 PM [facility] LABORATORYABSOLUTE METAMYELOCYTES0.1(H)<=0.0 thou/cu mm08/18/2025 2:11 PM [facility] LABORATORYSpecimen (Source)Anatomical Location / LateralityCollection Method / VolumeCollection TimeReceived TimeBloodBLOOD SPECIMEN / UnknownQuest Collect / Vnrpvqh6308/18/2025 12:35 PM CDT08/18/2025 12:35 PM CDT Narrative Authorizing ProviderResult TypeResult StatusGeorrajat Fragoso MDHEMATOLOGY Final ResultPerforming OrganizationAddressCity/State/ZIP CodePhone Number [facility] [address] [place] [address] * TSH (08/18/2025 12:35 PM CDT)ComponentValueRef RangeTest [...] CDT Narrative Authorizing ProviderResult TypeResult StatusGeorrajat Fragoso MDCHEMISTRY Final ResultPerforming OrganizationAddressCity/State/ZIP CodePhone Number [facility] [address] [address], * C-REACTIVE PROTEIN (08/18/2025 12:35 PM CDT)ComponentValueRef RangeTest Method Analysis TimePerformed AtPathologist SignatureC-REACTIVE PROTEIN<0.3<0.5 mg/dL 08/18/2025 1:29 PM CDTFCENTRAL [facility] LABORATORYSpecimen (Source) Anatomical Location / LateralityCollection Method / VolumeCollection Time Received TimeBloodBLOOD SPECIMEN / UnknownQuest Collect / Biljscn1508/18/2025 12:35 PM CDT08/18/2025 12:35 PM CDT Narrative Authorizing ProviderResult TypeResult StatusGeorrajat Fragoso MDCHEMISTRY Final ResultPerforming OrganizationAddressCity/State/ZIP CodePhone Number [facility] [address] [place] [address] * ANTI HCV (08/02/2023 1:57 PM CDT)ComponentValueRef RangeTest MethodAnalysis TimePerformed AtPathologist SignatureHEPATITIS C ANTIBODYNon-Reactive Non-Irwjqawv31/15/2023 3:36 PM CDTUNITED [facility] LABORATORYComment:Please note, per www.CDC.gov: If [...] TimeReceived Time BloodBLOOD SPECIMEN / UnknownVenipuncture / Kwapxqk2108/02/2023 1:57 PM CDT 08/02/2023 1:57 PM CDT Narrative Authorizing ProviderResult TypeResult StatusMacnaomy Vasquez PASCROSSROADS BE[facility] Final ResultPerforming OrganizationAddressCity/State/ZIP CodePhone Number [facility] [place] [phone] [place] [address] * SUPERVISOR ASSEMBLY ROOM THIN PREP PAP SCREEN IMAGED (11/25/2013 11:15 AM POWERHOUSE OPERATOR)ComponentValueRef RangeTest MethodAnalysis TimePerformed AtPathologist SignatureCYTOLOGY CYTOPATHOLOGY REPORT [facility] Status: Final Status ?[id number] CLINICAL INFORMATION Last Date of LMP ? :11/17/13 Last Pap Date ?:03/03/2011 Last Pap Result ?:NIL ABN [place]/Bx Past 5 YRS :None Hormone Usage ?:BCP/OCP/Patch/Ring Menstrual Status ? :Regular Periods [place]/Bx done today ? :No Additional Information :None [...] lesions. COLLECTED:11/25/13 ? ACCESSIONED: ??11/26/13 ?? SIGNED: ??12/02/13[facility]ILABFederal [facility] (Source)Anatomical Location / LateralityCollection Method / VolumeCollection TimeReceived TimeTissue specimen (specimen) (Cervical/Vaginal)11/25/2013 11:15 AM CST11/25/2013 11:12 AM POWERHOUSE OPERATOR Narrative Authorizing ProviderResult TypeResult StatusCecile Sorensen TetzloffPATHOLOGY/CYTOLOGY Final ResultPerforming OrganizationAddressCity/State/ZIP CodePhone Number [facility] [place] ZIP [address] [place] [phone] * ANTI HIV 1/2 (12/26/2010 5:05 PM POWERHOUSE OPERATOR)ComponentValueRef RangeTest Method Analysis TimePerformed AtPathologist SignatureANTI HIV 1/2Non-reactiveRed [facility] (Source)Anatomical Location / Laterality Collection Method / VolumeCollection TimeReceived TimeBlood specimen (specimen)BLOOD SPECIMEN / Qofneci9712/26/2010 5:05 PM CST12/26/2010 4:55 PM POWERHOUSE OPERATOR Narrative Authorizing ProviderResult TypeResult StatusAmy Marisa Nathan NPSEND OUTSFinal Result Performing OrganizationAddressCity/State/ZIP CodePhone Number [facility] [place]IP [address] [address] from Last 3 Months or Most Recently Relevant to Health Maintenance Insurance * Guarantor: Natalya Martinez LAccount TypeRelation to PatientDate of BirthPhone Billing AddressPersonal/UeunknQnxrmx58/18/1968 [id number] [place] [id number] * Guarantor: MANNY NINA PXAccount TypeRelation to PatientDate of PhoneBilling AddressSub[facility]/XmkgHmilemkh89/01/2001 [phone] (Home) ATTN: FRANK WHITE [address] [place] [place] [address] Care Teams Team MemberRelationshipSpecialtyStart DateEnd E[place] [address] PCP - GeneralFamily Practice06/23/24 Antoinette Palacio, PhD, LP PsychologistPsychology04/24/12 Gracia Rock, CLINICAL PRODUCT SPECIALIST [address] [place], [place] [address] Consulting PhysicianClinical Nurse Specialist07/07/[address] [place] [address] Registered DietitianRegistered Dietician07/07/22 Staff, Other Clinical . [facility]07/03/22
[2025-11-05 02:30] VITALS: BP 133/94; PULSE 103; RESP 22; TEMP 35.8; O2SAT 97; BMI 35.7
--- NOTE | 2025-11-05 03:12 | ED.ABDPAIN ---
HPI - Abdominal Pain General Date Seen: 11/05/25 Chief Complaint: Abdominal Pain Stated Complaint: abdominal/back pain Time Seen by Provider: 11/05/25 02:52 Source: patient Mode of arrival: ambulatory Limitations: no limitations History of Present Illness HPI narrative: Patient is a 35-year-old female with chronic abdominal pain that has been completely worked up on numerous occasions including CT scans, ultrasounds, labs. She has a provider at [facility] and transplant team at [facility]. She is on a buprenorphine patch and takes and Dilaudid as needed. She was just seen in the ER here two days ago and given a prescription for Dilaudid which she has not picked up yet. She tells me that Dilaudid no longer works for her pain. She has no new symptoms. I see no need for repeating her extensive evaluation. She describes the pain in her left lower quadrant radiating across her lower abdomen. No nausea or vomiting. No fevers or chills. Related Data Home Medications ?Medication ?Instructions ?Recorded ?Confirmed duloxetine 60 mg capsule,delayed 60 mg PO BID 08/06/22 11/05/25 release acyclovir 400 mg tablet 400 mg PO BID 05/31/25 11/05/25 aripiprazole 10 mg tablet 10 mg PO DAILY 05/31/25 11/05/25 buprenorphine 5 mcg/hour weekly 1 patch topical Q7D chronic pain 05/31/25 11/05/25 transdermal patch penicillin V potassium 500 mg 500 mg PO BID 05/31/25 11/05/25 tablet hydroxyzine HCl 25 mg tablet mg PO PRN 07/19/25 09/30/25 amlodipine 5 mg tablet 5 mg PO DAILY 11/05/25 11/05/25 cefdinir 300 mg capsule PO Q12H 11/05/25 celecoxib 100 mg capsule 100 mg PO BID 11/05/25 11/05/25 Previous Rx's ?Medication ?Instructions ?Recorded hydromorphone 2 mg tablet 2 mg PO Q6H PRN pain #20 tabs 11/04/25 (Dilaudid) oxycodone 5 mg tablet 5 - 10 mg (1 - 2 x 5 mg) PO Q6H 11/05/25 PRN pain #20 tabs Allergies Allergy/AdvReac Type Severity Reaction Status Date / Time grapefruit Allergy Intermediate other Verified 11/05/25 02:42 amoxicillin Allergy Mild other Verified 11/05/25 02:42 bupropion (From Wellbutrin) Allergy Mild Hives Verified 11/05/25 02:42 Review of Systems Narrative Review of systems is outlined above otherwise noted to be negative. She has chronic depression along with her pain issues. [facility] Medical History Closed fracture of radius ?S52.90XA - Unspecified fracture of unspecified forearm, initial encounter for closed fracture (ICD-10) Depression ?F32.A - Depression, unspecified (ICD-10) Violation of controlled substance agreement ?Z91.148 - Patient's other noncompliance with medication regimen for other reason (ICD-10) Obesity ?E66.9 - Obesity, unspecified (ICD-10) Disorder of eye movements ?H51.9 - Unspecified disorder of binocular movement (ICD-10) Sciatica ?M54.30 - Sciatica, unspecified side (ICD-10) Neuropathy ?G62.9 - Polyneuropathy, unspecified (ICD-10) Migraines ?G43.909 - Migraine, unspecified, not intractable, without status migrainosus (ICD-10) Irritable bowel ?K58.9 - Irritable bowel syndrome, unspecified (ICD-10) Fibromyalgia ?M79.7 - Fibromyalgia (ICD-10) Anxiety ?F41.9 - Anxiety disorder, unspecified (ICD-10) Chronic myeloid leukemia (CML), BCR/ABL1-positive, in remission ?C92.11 - Chronic myeloid leukemia, BCR/ABL-positive, in remission (ICD-10) Surgical History History of eye surgery ?Z98.890 - Other specified postprocedural states (ICD-10) History of dilation and curettage ?Z98.890 - Other specified postprocedural states (ICD-10) History of bone marrow biopsy ?Z98.890 - Other specified postprocedural states (ICD-10) Social History Smoking Status: Never smoker Do you use any of these nicotine containing products: None Second hand tobacco smoke exposure: No How often do you have a drink containing alcohol: never How often do you have six or more drinks on one occasion: Never AUDIT-C Alcohol total score: 0 Non-prescribed substance use: denies use service: No Exam Narrative: Exam Narrative: Vitals noted. Lungs are clear. Heart is regular rate rhythm without murmur. Abdomen is obese, soft, normal bowel sounds. She has some tenderness to palpation in the left lower quadrant and right lower quadrant. No guarding, rigidity, rebound. No CVA tenderness. Const: Vital Signs, click to edit/add: Vital Signs - 24 hr 11/05/25 02:30 Temperature 96.5 F L Pulse Rate [Right Pulse Oximeter] 103 H Respiratory Rate 22 Blood Pressure [Ri ght Upper Arm] 133/94 H Pulse Oximetry 97 Oxygen Delivery Me thod Room Air Course Course ED Course: Patient was seen and examined. She has been fully worked up for this chronic abdominal pain on numerous occasions. There is no indication to repeat any diagnostic tests. Prescription for Dilaudid has been sent to her pharmacy two days ago but never filled. Her last dose of pain medicine at home was 9:00 a.m. today. She tells me that Dilaudid does not work we discussed other alternatives. She needs to set up pain management plan with her PCP. She is given a shot of Toradol 60 mg IM and oxycodone is sent to [facility]. The patient drove herself to the emergency department. Vital Signs Vital signs: Initial Vital Signs Temperature 96.5 F L 11/05/25 02:30 Temperature Source Temporal Artery Scan 11/05/25 02:30 Pulse Rate 103 H 11/05/25 02:30 Pulse Rhythm Regular 11/05/25 02:30 Respiratory Rate 22 11/05/25 02:30 Blood Pressure 133/94 H 11/05/25 02:30 Blood Pressure Mean 107 H 11/05/25 02:30 Blood Pressure Position Sitting 11/05/25 02:30 Pulse Oximetry 97 11/05/25 02:30 Oxygen Delivery Method Room Air 11/05/25 02:30 Vital Signs Temperature 96.5 F L 11/05/25 02:30 Pulse Rate 103 H 11/05/25 02:30 Respiratory Rate 22 11/05/25 02:30 Blood Pressure 133/94 H 11/05/25 02:30 Pulse Oximetry 97 11/05/25 02:30 Oxygen Delivery Method Room Air 11/05/25 02:30 Temperature 96.5 F L 11/05/25 02:30 Pulse Rate 103 H 11/05/25 02:30 Respiratory Rate 22 11/05/25 02:30 Blood Pressure 133/94 H 11/05/25 02:30 Pulse Oximetry 97 11/05/25 02:30 Oxygen Delivery Method Room Air 11/05/25 02:30 Medications Administered Medications: Discontinued Medications Generic Name Dose Route Start Last Admin Trade Name Maximiliano PRN Reason Stop Dose Admin Ketorolac Tromethamine 60 mg 11/05/25 03:07 11/05/25 03:15 Ketorolac 30 Mg/Ml Inj IM 11/05/25 03:08 60 mg ONCE ONE Administration Discharge Plan Discharge Clinical Impression: Chronic abdominal pain Patient Disposition: Home, Self-Care Condition: Improved Instructions: Abdominal Pain (ED) Additional Instructions: Follow up with your PCP to discuss a chronic pain management plan to avoid ER visits. Prescriptions: New oxycodone 5 mg tablet 5 - 10 mg PO Q6H PRN (Reason: pain) Qty: 20 0RF Rx Instructions: Do not fill previous Rx for Dilaudid No Action duloxetine 60 mg capsule,delayed release(DR/EC) 60 mg PO BID acyclovir 400 mg tablet 400 mg PO BID aripiprazole 10 mg tablet 10 mg PO DAILY buprenorphine 5 mcg/hour patch weekly 1 patch topical Q7D penicillin V potassium 500 mg tablet 500 mg PO BID hydroxyzine HCl 25 mg tablet PO PRN hydromorphone [Dilaudid] 2 mg tablet 2 mg PO Q6H PRN (Reason: pain) Qty: 20 0RF amlodipine 5 mg tablet 5 mg PO DAILY cefdinir 300 mg capsule PO Q12H celecoxib 100 mg capsule 100 mg PO BID Follow Up/Referrals: Anny Matthews [employer]ORY [employer] [Primary Care Provider, Family Practice] Stand Alone Forms: [facility] [employer] Info Instructions
--- OUTSIDE RECORDS SUMMARY | 2025-11-05 03:24 | XMS_ITS | Encounter Summary ---
Author Organization [facility] Address [address] [place] [address] Care Team Providers Care Stick Roller Name Role Phone Elsewhere, Pcp Primary Care Provider Unavailabl e Encounter Details DateTypeDepartmentCare Team (Latest Contact Info)Fsnrgkcbirb02/14/2025 Documentation [facility], Ninth Floor [address] [place] [address] Oli Lynch, P.AKatalina-C. [address] [place] [address] Social History Tobacco UseTypesPacks/DayYears UsedDateSmoking Tobacco: NeverSmokeless [...] RecordedIn the past 12 months has the [employer], gas, oil, or water [employer] threatened to shut off services in your home?No11/01/2025Postpartum DepressionAnswerDate RecordedPHQ-9 Total Score (max 27)12007/08/2025Housing StabilityAnswerDate RecordedWhat is your living situation today?I have a steady place to live11/01/2025EducationAnswerDate RecordedWhat is the highest level of school you have completed or the highest degree you have received?Some college, no ynmaco8804/24/2019CommentsNoSex and Gender InformationValueDate RecordedSex Assigned at KuodxLoyfnk80/07/2019 8:37 PM [employer] Legal TobHmyazr76/02/2017 2:43 PM CSTGender CxetkuaaVhxigk97/07/2019 8:37 PM VP [employer] Sexual OrientationChoose not to aklsuyfp21/17/2021 3:46 PM CDTdocumented as of this encounter Progress Notes * Oli Lynch P.A.-C. - 11/01/2025 10:50 AM CST INTERVAL HISTORY 10/30/25: Patient presented to [facility] ED with left lower quadrant and left flank pain for a week, on 10/30/25. She also has associated nausea and vomiting for 3 days. ER did thorough workup. Her labs overall were stable. UA showed moderate leukocyte esterase with WBC 31-[address] abdomenshowed bladder wall thickening. There were no other CT findings that could explain her abdominal pain and back pain. She was started on cefdinir 300 mg twice a day for 7 days for UTI. Urine culture returned as urogenital microbiota, susceptibilities not performed per laboratory criteria. Ultrasound pelvis transvaginal and transabdominal on 10/30/25 reported findings suggestive of uterine adenomyosis. Ms. Martinez is going to request an appointment with her periodontal assistant for further recommendation. She was prescribed hydromorphone for pain control. In addition, patient was seen at the [facility] clinic, and by Palliative Care on 10/30/25. 10/31/25: Pt called regarding abdominal and back pain. Pt reported intermittent SOB for the past few days. Ptreported going to the [facility] ER on 10/30/25 and addressed the previously mentioned concerns. BMT sx consulted for pain management and SOB. The overall recommendations were listed below: -Recommendations for pain: take Dilaudid as prescribed, take Tylenol Q6H (do not exceed over 4g in 24 hours), and apply heat and/or ice to the affected areas. -Recommendations for SOB: if worsens, go to the local ER or call 911 (if unable to safely get to local ER). 11/01/25: Patient phoned [phone] this morning to report ongoing pain (as above). She reports returning to the ER last evening, where she was given IV Toradol and sent home. I phoned her and mentioned the Toradolinjection she received, in addition to the Tylenol and Dilaudid she is taking were insufficient to control her pain. We discussed that her urine culture results were mixed magalis, but at any rate, she is on oral cefdinir for this. It is difficult to know if this pain may be related to her adenomyoma. PLAN I discussed the patient with two colleagues, and we agreed to best course is to have patient report again to [facility] ED to be evaluated. If necessary, she can be admitted from there for further treatment or evaluation. 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 # Diffuse radicular pain # Diffuse Abdominal Pain - Patient has had an extensive work up for abdominal pain including EGD/Flex Sig, numerous CT scans, and blood work to no avail. Treatment course has included Budesonide, Dilaudid, Levsin, Buprenorphine patch, Cymbalta - Followed by Palliative Medicine who renews the buprenorphine patch - Continues on buprenorphine patch weekly and Cymbalta 120mg daily - Followed up with Palliative Medicine on 10/30/2025 # UTI - CT abdomen on 10/29/25 shows bladder wall thickening. There is no other CT findings that could explain her abdominal pain and back pain. She was started on cefdinir 300 mg twice a day for 7 days for UTI. - Urine culture 10/29/25: Urogenital microbiota, susceptibilities not performed per laboratory criteria. # Uterine adenomyosis - This was shown on US Pelvis on 10/30/25. - She is going to make an appointment with her periodontal assistant. Win Lynch PA-C [id number] [employer] documented in this encounter Plan of Treatment DateTypeDepartmentCare Team (Latest Contact Info)Witkhnjzvig49/29/2025 9:00 AM CSTOffice Visit Department of Obstetrics and Gynecology in [place], [place] [address] [place] [phone] Alice Linares M.D. [address] [place] [phone] 11/17/2025 11:00 AM CSTTelemedicine Department of Palliative Care in [place], [place] [address] [place] [phone] Yary Landa D.O. [address] [place] [phone] 12/04/2025 1:30 PM CSTClinical Communication Virtual Review in [place], [place] [address] [place] [address] 12/07/2025 8:10 AM CSTLab Department of Laboratory Medicine and Pathology, [facility], in [place], [place] [address] [place] [phone] Jessica Rousseau M.B.B.S. [address] [place] [phone] 12/07/2025 9:15 AM CSTAppointment Outpatient Procedure Center in [place], [place] [address] [place] [phone] Jessica Rousseau M.B.B.S. [address] [place] [phone] 12/07/2025 11:00 AM CSTDiagnostic Division of Pulmonary Medicine in [place], [place] [address] [place] [phone] Jessica Rousseau M.B.B.S. [address] [place] [phone] 12/07/2025 1:00 PM CSTOffice Visit [facility] in [place], [place] [address] [place] [phone] Jessica Rousseau M.B.B.S. [address] [place] [phone] 12/07/2025 1:30 PM CSTNurse Only Pedro Nazario [facility] in [place], [place] [address] [place] [phone] Jessica Rousseau M.B.B.S. [address] [place] [phone] 12/07/2025 2:00 PM CSTOffice Visit [facility] in [place], [place] [address] [place] [phone] Jessica Rousseau M.B.B.S. [address] [place] [phone] 12/07/2025 3:00 PM CSTOffice Visit Department of Palliative Care in [place], [place] [address] [place] [phone] Martine Pardo B.M.B.S., BKatalinaM., B.Ch. [address] [place] [phone] documented as of this encounter Visit Diagnoses Not on filedocumented in this encounter Additional Health Concerns InfectionOnset DateLast IndicatedResolved TimeProtective Nmbjeftwaje31/14/2023 03/02/2023ssessmentNoted TimePHQ-9 Depression Total Score: 12007/08/2025 9:42 AM CDTdocumented as of this encounter Care Teams Team MemberRelationshipSpecialtyStart DateEnd Date Elsewhere, Pcp PCP - GeneralInternal Ykptehqv32/5/25documented as of this encounter
--- OUTSIDE RECORDS SUMMARY | 2025-11-05 03:24 | XMS_ITS | Encounter Summary ---
Author Organization [facility] Address [address] [place] [address] Care Team Providers Care Garment Form Assembler Name Role Phone Renzo Andres M.D. Primary Care Provider Reason for Visit * ReasonCommentsMed Refill Encounter Details DateTypeDepartmentCare Team (Latest Contact Info)Tadwrwycsur23/28/2025Refill [facility], Tenth Floor [address] [place] [phone] Jessica Avila, KARON, C.N.P., M.S.N. [address] [place] [phone] Med Refill Social History Tobacco UseTypesPacks/DayYears UsedDateSmoking [...] before you got the money to buymore.Patient wzdpikde61/25/2025Within the past 12 months, the food you bought just didn't last and you didn't have money to get more.Patient nmpzabti35/25/2025PRAPARE - TransportationAnswerDate RecordedIn the past 12 months, has lack of transportation kept you from medical appointments or from getting medications?No08/13/2025In the past 12 months, has lack of transportation kept you from meetings, work, or from getting things needed for daily living?No08/13/2025HC UtilitiesAnswerDate RecordedIn the past 12 months has the [place], gas, oil, or water [employer] threatened to shut off services in your home?Patient wwhfjeoz59/25/2025Postpartum DepressionAnswerDate RecordedPHQ- 9 Total Score (max 27)12007/08/2025Housing StabilityAnswerDate RecordedWhat is your living situation today?I have a steady place to live08/13/2025Education AnswerDate RecordedWhat is the highest level of school you have completed or the highest degree you have received?Some college, no vzqnvi6404/24/2019 CommentsNoSex and Gender InformationValueDate RecordedSex Assigned at Acshjm5312/26/2018 8:37 PM CSTLegal KjzDbrrnp59/02/2017 2:43 PM CSTGender Identity Apfvgh2412/26/2018 8:37 PM CSTSexual OrientationChoose not to qnncprro81/17/2021 3:46 PM CDTdocumented as of this encounter Plan of Treatment DateTypeDepartmentCare Team (Latest Contact Info)Xhjgvztsdsm01/29/2025 9:00 AM CSTOffice Visit Department of Obstetrics and Gynecology in [place], [place] [address] [place] [phone] Alice Linares M.D. [address] [place] [phone] 11/17/2025 11:00 AM CSTTelemedicine Department of Palliative Care in [place], [place] [address] [place] [phone] Yary Landa D.O. [address] [place] [phone] 12/04/2025 1:30 PM CSTClinical Communication Virtual Review in [place], [place] [address] [place] [phone] 12/07/2025 8:10 AM CSTLab Department of Laboratory Medicine and Pathology, [facility] in [place], [place] [address] [place] [phone] Jessica Rousseau M.B.B.S. [address] [place] [phone] 12/07/2025 9:15 AM CSTAppointment Outpatient Procedure Center in [place], [place] [address] [place] [phone] Jessica Rousseau M.B.B.S. [address] [place] [phone] 12/07/2025 11:00 AM CSTDiagnostic Division of Pulmonary Medicine in [place], [place] [address] [place] [phone] Jessica Rousseau M.B.B.S. [address] [place] [phone] 12/07/2025 1:00 PM CSTOffice Visit [facility] in [place], [place] [address] [place] [phone] Jessica Rousseau M.B.B.S. [address] [place] [phone] 12/07/2025 1:30 PM CSTNurse Only [facility] in [place], [place] [address] [place] [phone] Jessica Rousseau M.B.B.S. [address] [place] [phone] 12/07/2025 2:00 PM CSTOffice Visit [facility] in [place], [place] [address] [place] [phone] Jessica Rousseau M.B.B.S. [address] [place] [phone] 12/07/2025 3:00 PM CSTOffice Visit Department of Palliative Care in [place], [place] [address] [place] [phone] Martine Pardo B.M.B.S., B.M., B.Ch. [address] [place] [phone] documented as of this encounter Visit Diagnoses Not on filedocumented in this encounter Additional Health Concerns InfectionOnset DateLast IndicatedResolved TimeProtective Dscrzhgkbfc72/14/2023 1084MCUFV24 Ptuvmvb90 12:51 PM CDTAssessment Noted TimePHQ-9 Depression Total Score: 9:42 AM CDTdocumented as of this encounter Care Teams Team MemberRelationshipSpecialtyStart DateEnd Date Renzo Andres M.D. [address] [place] [address] PushmatahaSUNNY maldonado [phone] PCP - GeneralFamily Medicine04/2505/2312/4/25documented as of this encounter
--- OUTSIDE RECORDS SUMMARY | 2025-11-05 03:24 | XMS_ITS | Encounter Summary ---
Author Organization [facility] Address [address] [place] [address] Care Team Providers Care Card Clothier Name Role Phone Elsewhere, Pcp Primary Care Provider Unavailabl e Reason for Visit * ReasonOnset DateCommentsSymptom Wpvgaxunkm42/17/2025 Encounter Details DateTypeDepartmentCare Team (Latest Contact Info)Ojdiuvynnyk42/17/2025linical Communication Pedro sanchez [facility] in [place], [place] [address] [place] [address] Jessica Rousseau M.B.B.S. [address] [place] [address] Symptom Assessment Social History Tobacco UseTypesPacks/DayYears UsedDateSmoking [...] highest degree you have received?Some college, no unvgaf0004/24/2019CommentsNoSex and Gender InformationValueDate RecordedSex Assigned at BxucaQzzilq38/07/2019 8:37 PM INSULATION WORKER INTERIOR SURFACE Legal DzhTsznup2017 2:43 PM CSTGender XifomgeoWzyxic37/07/2019 8:37 PM INSULATION WORKER INTERIOR SURFACE Sexual OrientationChoose not to rhulysuz73/17/2021 3:46 PM CDTdocumented as of this encounter Miscellaneous Notes * Telephone Encounter - Elise Pizarro R.N. - 11/04/2025 2:38 PM CST SUBJECTIVE CHIEF COMPLAINT / REASON FOR CALL Symptom Assessment ASSESSMENT Back and abdominal pain. 7-8 pain. She went to her local ER today. They sent her home with dilaudid for her pain as her workup was negative. States she had a fever this morning at home but the fever is gone. No fever noted at local ED. Chest pain noted as well-- EKG done locally and was clear. She has not reached out to palliative-- states her Celebrex is not working. PLAN At this point, workup at [place] and local hospital has all been negative. Patient is aware of this. Advised her to talk with her palliative care team for pain management, as there is nothing acute buffy treating at this time, per provider notes in her chart. She will reach out to them for pain management. This publicity writer will reach out to Dr. Rousseau to talk with patient. Until then, patient is to continue self care and report to local ER should anything worsen. Disposition/Recommendation: notified provider and awaiting recommendations. Information/Education: patient/caller able to teach back. Caller agreeable to plan of care: yes. The following references were used: nursing clinical judgement. Chart review. LATION WORKER INTERIOR SURFACE documented in this encounter Plan of Treatment DateTypeDepartmentCare Team (Latest Contact Info)Ztewlyoquns34/29/2025 9:00 AM CSTOffice Visit Department of Obstetrics and Gynecology in [place], [place] [address] [place] [phone] Alice Linares M.D. [address] [place] [phone] 11/17/2025 11:00 AM CSTTelemedicine Department of Palliative Care in [place], [place] [address] [place] [phone] Yary Landa D.O. [address] [place] [phone] 12/04/2025 1:30 PM CSTClinical Communication Virtual Review in [place], [place] [address] [place] [address] 12/07/2025 8:10 AM CSTLab Department of Laboratory Medicine and Pathology, [facility], in [place], [place] [address] [place] [phone] Jessica Rousseau M.B.B.S. [address] [place] [phone] 12/07/2025 9:15 AM CSTAppointment Outpatient Procedure Center in [place], [place] [address] [place] [phone] Jessica Rousseau M.B.B.S. [address] [place] [phone] 12/07/2025 11:00 AM CSTDiagnostic Division of Pulmonary Medicine in [place], [place] [address] [place] [phone] Jessica Rousseau M.B.B.S. [address] [place] [phone] 12/07/2025 1:00 PM CSTOffice Visit [facility] in [place], [place] [address] [place] [phone] Jessica Rousseau M.B.B.S. [address] [place] [phone] 12/07/2025 1:30 PM CSTNurse Only Pedro Nazario [facility] and Clinical Regeneration in [place], [place] [address] [place] [phone] Jessica Rousseau M.B.B.S. [address] [place] [phone] 12/07/2025 2:00 PM CSTOffice Visit Pedro Mantilla[facility] in [place], [place] [address] [place] [phone] Jessica Rousseau M.B.B.S. [address] [place] [phone] 12/07/2025 3:00 PM CSTOffice Visit Department of Palliative Care in [place], [place] [address] [place] [phone] Martine Pardo B.M.B.S., B.M., B.Ch. [address] [place] [phone] documented as of this encounter Visit Diagnoses Not on filedocumented in this encounter Additional Health Concerns InfectionOnset DateLast IndicatedResolved TimeProtective Zcydaocdxzz58/14/2023 03/02/2023ssessmentNoted TimePHQ-9 Depression Total Score: 12007/08/2025 9:42 AM CDTdocumented as of this encounter Care Teams Team MemberRelationshipSpecialtyStart DateEnd Date Elsewhere, Pcp PCP - GeneralInternal Ehtbpquy00/5/25documented as of this encounter
--- OUTSIDE RECORDS SUMMARY | 2025-11-05 03:24 | XMS_ITS | Encounter Summary ---
Author Organization [facility] Address [address] [place] [address] Care Team Providers Care Research Worker Encyclopedia Name Role Phone Elsewhere, Pcp Primary Care Provider Unavailabl e Encounter Details DateTypeDepartmentCare Team (Latest Contact Info)Xcjwwakbnjk39/16/2025Orders Only Division of Hematology in [place], [place] [address] [place] [address] Whit Werner M.D. [address] [place] [address] Social History Tobacco UseTypesPacks/DayYears UsedDateSmoking Tobacco: NeverSmokeless [...] RecordedIn the past 12 months has the [employer], gas, oil, or water [employer] threatened to shut off services in your home?No11/01/2025Postpartum DepressionAnswerDate RecordedPHQ-9 Total Score (max 27)Housing StabilityAnswerDate RecordedWhat is your living situation today?I have a steady place to live11/01/2025EducationAnswerDate RecordedWhat is the highest level of school you have completed or the highest degree you have received?Some college, no hntaen2904/24/2019CommentsNoSex and Gender InformationValueDate RecordedSex Assigned at AqbzxCqlqlm62/07/2019 8:37 PM DELIVERY DRIVER ASSISTANT Legal GbgCgwvmn83/02/2017 2:43 PM CSTGender DvpkresjZiazwh60/07/2019 8:37 PM DELIVERY DRIVER ASSISTANT Sexual OrientationChoose not to rswagdod77/17/2021 3:46 PM CDTdocumented as of this encounter Plan of Treatment DateTypeDepartmentCare Team (Latest Contact Info)Kbcccnzalcr96/29/2025 9:00 AM CSTOffice Visit Department of Obstetrics and Gynecology in [place], [place] [address] [place] [address] Alice Linares M.D. [address] [place] [phone] 11/17/2025 11:00 AM CSTTelemedicine Department of Palliative Care in [place], [place] [address] [place] [phone] Yary Landa D.O. [address] [place] [phone] 12/04/2025 1:30 PM CSTClinical Communication Virtual Review in [place], [place] 200 [place] [address] 12/07/2025 8:10 AM CSTLab Department of Laboratory Medicine and Pathology, [facility] in [place], [place] [address] [place] [phone] Jessica Rousseau M.B.B.S. [address] [place] [phone] 12/07/2025 9:15 AM CSTAppointment Outpatient Procedure Center in [place], [place] [address] [place] [phone] Jessica Rousseau M.B.B.S. [address] [place] [phone] 12/07/2025 11:00 AM CSTDiagnostic Division of Pulmonary Medicine in [place], [place] [address] [place] [phone] Jessica Rousseau M.B.B.S. [address] [place] [phone] 12/07/2025 1:00 PM CSTOffice Visit Pedro Aravind [facility] for [facility] and Clinical Reg[facility] in [place], [place] [address] [place] [address] Jessica Rousseau M.B.B.S. [address] [place] [phone] 12/07/2025 1:30 PM CSTNurse Only [facility] Trans[facility] Clinical Reg[facility] in [place], [place] [address] [place] [phone] Jessica Rousseau M.B.B.S. [address] [place] [phone] 12/07/2025 2:00 PM CSTOffice Visit [facility] Clinical [facility] in [place], [place] [address] [place] [phone] Jessica Rousseau M.B.B.S. [address] [place] [phone] 12/07/2025 3:00 PM CSTOffice Visit Department of Palliative Care in [place], [place] [address] [place] [phone] Martine Pardo B.MKatalinaB.S., B.M., B.Ch. [address] [place] [phone] documented as of this encounter Visit Diagnoses Not on filedocumented in this encounter Additional Health Concerns InfectionOnset DateLast IndicatedResolved TimeProtective Aywafelphfp01/14/2023 03/02/2023ssessmentNoted TimePHQ-9 Depression Total Score: 9:42 AM CDTdocumented as of this encounter Care Teams Team MemberRelationshipSpecialtyStart DateEnd Date Elsewhere, Pcp PCP - GeneralInternal Ledvkkbg73/5/25documented as of this encounter
--- OUTSIDE RECORDS SUMMARY | 2025-11-05 03:24 | XMS_ITS | Encounter Summary ---
Author Organization [facility] Address [address] [place] [address] Care Team Providers Care Oil Field Equipment Mechanic Name Role Phone Elsewhere, Pcp Primary Care Provider Unavailabl e Encounter Details DateTypeDepartmentCare Team (Latest Contact Info)Iphpvxphqqy30/16/2025Clinical Communication Division of Gastroenterology in [place], [place] [address] [place] [address] Derrick Cruz Jr., M.D., M.S. [address] [place] [address] Social History Tobacco UseTypesPacks/DayYears UsedDateSmoking Tobacco: NeverSmokeless [...] RecordedIn the past 12 months has the [employer], gas, oil, or water [employer] threatened to shut off services in your home?No11/01/2025Postpartum DepressionAnswerDate RecordedPHQ-9 Total Score (max 27)12007/08/2025Housing StabilityAnswerDate RecordedWhat is your living situation today?I have a steady place to live11/01/2025EducationAnswerDate RecordedWhat is the highest level of school you have completed or the highest degree you have received?Some college, no orfjbx2004/24/2019CommentsNoSex and Gender InformationValueDate RecordedSex Assigned at OlitbZxyvnt59/07/2019 8:37 PM SPECIAL EDUCATION SUPERINTENDENT Legal OprTugcwj12/02/2017 2:43 PM CSTGender YtyasuvdLttpqo31/07/2019 8:37 PM SPECIAL EDUCATION SUPERINTENDENT Sexual OrientationChoose not to kxufqzrl68/17/2021 3:46 PM CDTdocumented as of this encounter Plan of Treatment DateTypeDepartmentCare Team (Latest Contact Info)Qvebpzfbcxz34/29/2025 9:00 AM CSTOffice Visit Department of Obstetrics and Gynecology in [place], [place] [address] [place] [phone] Alice Linares M.D. [address] [place] [phone] 11/17/2025 11:00 AM CSTTelemedicine Department of Palliative Care in [place], [place] [address] [place] [phone] Yary Landa D.O. [address] [place] [phone] 12/04/2025 1:30 PM CSTClinical Communication Virtual Review in [place], [place] 200 [place] [phone] 12/07/2025 8:10 AM CSTLab Department of Laboratory Medicine and Pathology, [facility] in [place], [place] [address] [place] [phone] Jessica Rousseau M.B.B.S. [address] [place] [phone] 12/07/2025 9:15 AM CSTAppointment Outpatient Procedure Center in [place], [place] [address] [place] [phone] Jessica Rousseau M.B.B.S. [address] [place] [phone] 12/07/2025 11:00 AM CSTDiagnostic Division of Pulmonary Medicine in [place], [place] [address] [place] [phone] Jessica Rousseau M.B.B.S. [address] [place] [phone] 12/07/2025 1:00 PM CSTOffice Visit [facility] in [place], [place] [address] [place] [phone] Jessica Rousseau M.B.B.S. [address] [place] [phone] 12/07/2025 1:30 PM CSTNurse Only [facility] Trans[facility] and Clinical [facility] in [place], [place] [address] [place] [phone] Jessica Rousseau M.B.B.S. [address] [place] [phone] 12/07/2025 2:00 PM CSTOffice Visit [facility] Trans[facility] Clinical [facility] in [place], [place] [address] [place] [phone] Jessica Rousseau M.B.B.S. [address] [place] [phone] 12/07/2025 3:00 PM CSTOffice Visit Department of Palliative Care in [place], [place] [address] [place] [phone] Martine Pardo B.M.B.S., B.M., B.Ch. [address] [place] [phone] documented as of this encounter Visit Diagnoses Not on filedocumented in this encounter Additional Health Concerns InfectionOnset DateLast IndicatedResolved TimeProtective Dpxcatdknyg89/14/2023 03/02/2023ssessmentNoted TimePHQ-9 Depression Total Score: 9:42 AM CDTdocumented as of this encounter Care Teams Team MemberRelationshipSpecialtyStart DateEnd Date Elsewhere, Pcp PCP - GeneralInternal Iyomkdfh85/5/25documented as of this encounter
--- OUTSIDE RECORDS SUMMARY | 2025-11-05 03:25 | XMS_ITS ---
Author Organization [facility] Address [address] [place] [address] Care Team Providers Care Supervisor Pit And Auxiliaries Name Role Phone Elsewhere, Pcp Primary Care [...] RSV: MMR: Local Lab/Provider: [place] [address] ProblemNoted DateDiagnosed DateAcute Cystitis Without Yoysuobwk27/12/2025 Palliative Care08/11/2025Pain Left Lower Zqabzkxx90/14/2025bdominal Pain 06/12/2025Nausea And Wstuyekv04/10/2025Pain Kqumpxotrzi29/03/2025Depressive Cpleckjy14/03/2025Transplant Stem Cell04/21/20254329Rudhrrebvs67/22/2025Transplant Bone Marrow Xwobrxpmxe01/14/2025Reaction Drug Adverse Personal Zxklfix2011/07/2024 Leukemia Myeloid Chronic BCR/ABL Positive Uzmftfipd08/31/2024Insulin Resistance, Efswxnbutfp88/02/2022Eating Lopaqimz81/19/2022nxiety Generalized Disorder 08/14/2019Chronic Gvnnmmwr18/30/2019Leukemia Myeloid Chronic BCR/ABL Positive Not Having Achieved Lhzfdegbx35/23/2019 Cancer Staging: Clinical: Unsigned Adjustment Disorder With [...] Center Donor InformationAcute GVHDChronic GVHDContactAllo PBSC TxpActiveDay 330 (12/10/24)[facility]* Match Grade: 8/8 * HLA DP Match: Permissive Mismatch * Latest: Not documented * Max: Not documented * Latest: Not documented * Max: Not documented Nitesh GodoyB.S.* * * Email: [email or web address] * WhenVisit SuepArdsVcxexrlnsaw09/08/2025ppointmentTXP BMT - Jacquelin, K Transplant Stem Cell (HCC) (Primary Dx); 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);Nausea And Vomiting 10/30/2025ppointmentTXP BMT - Gu, YTransplant Bone Marrow Allogeneic (HCC) (Primary Dx); 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) 11/02/2025ppointmentTXP BMTCanceled (Clinic: Scheduling Error) Lifetime Dose Tracking * ChemicalLifetime DoseAutomatic EntryManual EntryRadiation8.93 mGy8.93 mGy0 mGy Fluoro Time1.5 minutes1.5 minutes0 minutes Resolved Problems ProblemNoted DateDiagnosed DateResolved RrvgQtujtaitq75/31/202507/08/2025 Encounter Admission For Edqabrnhehgi23/24/202501/Pain Bone09/20/2020 12/10/2024Pain Kzxzsjrrph96Gastroesophageal Reflux Disease Sore Throat Drlfive77Localized Enlarged Lymph NodesPain In Joint5Anemia12/17/2018 09/17/2019Thrombocytosis Nvhydmowtet64Leukocytosis12/17/2018 04/03/2019Leukemia Myeloid Chronic BCR/ABL Positive Not Having Achieved Eioncbekl92Depression Bavpdfx274Constipation Counseling Fertility Preservation Pre Cancer Therapy
--- OUTSIDE RECORDS SUMMARY | 2025-11-05 03:25 | XMS_ITS | Encounter Summary ---
Author Organization [facility] Address [address] [place] [address] Care Team Providers Care Clean In Places Operator Name Role Phone Elsewhere, Pcp Primary Care Provider Unavailabl e Reason for Visit * ReasonOnset DateCommentsTreatment Plan Fgyavy6210/30/2025ED follow up Encounter Details DateTypeDepartmentCare Team (Latest Contact Info)Hezmfomwtlj67/12/2025Clinical Communication Department of Obstetrics and Gynecology in [place], [place] [address] [place] [address] Prescheduling, Provider Treatment Plan Review (ED follow [...] RecordedIn the past 12 months has the [employer], gas, oil, or water [employer] threatened to shut off services in your home?No11/01/2025Postpartum DepressionAnswerDate RecordedPHQ-9 Total Score (max 27)Housing StabilityAnswerDate RecordedWhat is your living situation today?I have a steady place to live11/01/2025EducationAnswerDate RecordedWhat is the highest level of school you have completed or the highest degree you have received?Some college, no pylnob7204/24/2019CommentsNoSex and Gender InformationValueDate RecordedSex Assigned at UqzyfDfvmby88/07/2019 8:37 PM CELL EFFICIENCY SUPERVISOR Legal HpoOlnbtg23/02/2017 2:43 PM CSTGender OndemxjaWbziqc83/07/2019 8:37 PM CELL EFFICIENCY SUPERVISOR Sexual OrientationChoose not to cgpxifna52/17/2021 3:46 PM CDTdocumented as of this encounter Plan of Treatment DateTypeDepartmentCare Team (Latest Contact Info)Btvnzsnosio53/29/2025 9:00 AM CSTOffice Visit Department of Obstetrics and Gynecology in [place], [place] [address] [place] [phone] Alice Linares M.D. [address] [place] [phone] 11/17/2025 11:00 AM CSTTelemedicine Department of Palliative Care in [place], [place] [address] [place] [phone] Yary Landa D.O. [address] [place] [phone] 12/04/2025 1:30 PM CSTClinical Communication Virtual Review in [place], [place] 200 [place] [address] 12/07/2025 8:10 AM CSTLab Department of Laboratory Medicine and Pathology, [facility] in [place], [place] [address] [place] [phone] Jessica Rousseau M.B.B.S. [address] [place] [phone] 12/07/2025 9:15 AM CSTAppointment Outpatient Procedure Center in [place], [place] [address] [place] [phone] Jessica Rousseau M.B.B.S. [address] [place] [phone] 12/07/2025 11:00 AM CSTDiagnostic Division of Pulmonary Medicine in [place], [place] [address] [place] [phone] Jessica Rousseau M.B.B.S. [address] [place] [phone] 12/07/2025 1:00 PM CSTOffice Visit Pedro sanchez [facility] and Clinical Regeneration in [place], [place] [address] [place] [phone] Jessica Rousseau M.B.B.S. [address] [place] [phone] 12/07/2025 1:30 PM CSTNurse Only [facility] Transplantation and Clinical Regeneration in [place], [place] [address] [place] [phone] Jessica Rousseau M.B.B.S. [address] [place] [phone] 12/07/2025 2:00 PM CSTOffice Visit [facility] Transplantation and Clinical Regeneration in [place], [place] [address] [place] [phone] Jessica Rousseau M.B.B.S. [address] [place] [phone] 12/07/2025 3:00 PM CSTOffice Visit Department of Palliative Care in [place], [place] [address] [place] [phone] Martine Pardo B.M.B.S., B.M., B.Ch. [address] [place] [phone] documented as of this encounter Visit Diagnoses Not on filedocumented in this encounter Additional Health Concerns InfectionOnset DateLast IndicatedResolved TimeProtective Jlgsurhkfjy51/14/2023 03/02/2023ssessmentNoted TimePHQ-9 Depression Total Score: 9:42 AM CDTdocumented as of this encounter Care Teams Team MemberRelationshipSpecialtyStart DateEnd Date Elsewhere, Pcp PCP - GeneralInternal Bkjxzrju14/5/25documented as of this encounter
--- OUTSIDE RECORDS SUMMARY | 2025-11-05 03:25 | XMS_ITS | Encounter Summary ---
Author Organization [facility] Address [address] [place] [address] Care Team Providers Care Manager Construction Name Role Phone Elsewhere, Pcp Primary Care Provider Unavailabl e Encounter Details DateTypeDepartmentCare Team (Latest Contact Info)Aatijcesjvq83/13/2025Orders Only [facility], Ninth [place] [address] [place] [address] Racquel Candelario, DISTRICT LOSS PREVENTION MANAGER, C.N.P. [address] [place] [address] Social History Tobacco UseTypesPacks/DayYears UsedDateSmoking Tobacco: NeverSmokeless [...] has the electric, gas, oil, or water Automatic Agency threatened to shut off services in your home?No11/01/2025Postpartum DepressionAnswerDate RecordedPHQ-9 Total Score (max 27)Housing StabilityAnswerDate RecordedWhat is your living situation today?I have a steady place to live11/01/2025EducationAnswerDate RecordedWhat is the highest level of school you have completed or the highest degree you have received?Some college, no mrwfah1404/24/2019CommentsNoSex and Gender InformationValueDate RecordedSex Assigned at LtqmkEdnrdz31/07/2019 8:37 PM [employer] TECHN[employer]Y SPECIALIST Legal WigPzdwxm31/02/2017 2:43 PM CSTGender FpubqffsYhjvaf34/07/2019 8:37 PM SEAFOOD TECHNOLOGY SPECIALIST Sexual OrientationChoose not to gullqgbt21/17/2021 3:46 PM CDTdocumented as of this encounter Plan of Treatment DateTypeDepartmentCare Team (Latest Contact Info)Eutialwfxsn33/29/2025 9:00 AM CSTOffice Visit Department of Obstetrics and Gynecology in [place], [place] [address] [place] [phone] Alice Linares M.D. [address] [place] [phone] 11/17/2025 11:00 AM CSTTelemedicine Department of Palliative Care in [place], [place] [address] [place] [phone] Yary Landa D.O. [address] [place] [phone] 12/04/2025 1:30 PM CSTClinical Communication Virtual Review in [place], [place] 200 [place] [address] 12/07/2025 8:10 AM CSTLab Department of Laboratory Medicine and Pathology, [facility], in [place], [place] [address] [place] [phone] Jessica Rousseau M.B.B.S. [address] [place] [phone] 12/07/2025 9:15 AM CSTAppointment Outpatient [facility] Center in [place], [place] [address] [place] [phone] Jessica Rousseau M.B.B.S. [address] [place] [phone] 12/07/2025 11:00 AM CSTDiagnostic Division of Pulmonary Medicine in [place], [place] [address] [place] [phone] Jessica Rousseau M.B.B.S. [address] [place] [phone] 12/07/2025 1:00 PM CSTOffice Visit [facility] in [place], [place] [address] [place] [phone] Jessica Rousseau M.B.B.S. [address] [place] [phone] 12/07/2025 1:30 PM CSTNurse Only [facility] in [place], [place] [address] [place] [phone] Jessica Rousseau M.B.B.S. [address] [place] [phone] 12/07/2025 2:00 PM CSTOffice Visit [facility] in [place], [place] [address] [place] [phone] Jessica Rousseau M.B.B.S. [address] [place] [phone] 12/07/2025 3:00 PM CSTOffice Visit Department of Palliative Care in [place], [place] [address] [place] [phone] Martine Pardo B.MKatalinaB.S., B.M., B.Ch. [address] [place] [phone] documented as of this encounter Visit Diagnoses Not on filedocumented in this encounter Additional Health Concerns InfectionOnset DateLast IndicatedResolved TimeProtective Peugtvgvibq52/14/2023 03/02/2023ssessmentNoted TimePHQ-9 Depression Total Score: 9:42 AM CDTdocumented as of this encounter Care Teams Team MemberRelationshipSpecialtyStart DateEnd Date Elsewhere, Pcp PCP - GeneralInternal Ktqrfubs49/5/25documented as of this encounter
--- OUTSIDE RECORDS SUMMARY | 2025-11-05 03:25 | XMS_ITS | Clinical Summary ---
Author Organization [facility] Address [address] [place] [address] Care Team Providers Care Child Care Development Specialist Name Role Phone Elsewhere, Pcp Primary Care Provider Unavailabl e Source Comments Patient records contain information from all sites at [facility]. For routine questions regarding patient records, call [phone] during business hours, M-F 8:00 AM - 5:00 PM Central Time. Record requests for emergency care only can be directed to [phone] at any time.[facility] Allergies Active AllergyReactionsCriticalityNoted DateCommentsBupropionEdema (Reselect Reaction)03/01/2017GrapefruitOther (see comments)06/28/2021 Drug-drug interaction with Bosulif (bosutinib); This had also been noted w/ prior therapy which patient is no longer taking (Tasigna (nilotinib)). OxycodoneGI dxetcocbjjyEodm46/18/2025 Severe nausea Medications * This document contains [...] mg total) by mouth daily. 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 60 tablet 5Active Additional Information Patient taking differently:500 mg oral 2 times daily,Hold when taking Cefdinir, resume on 11/06/25 after complete with Cefdinir., Reported on 10/30/2025 buprenorphine (Butrans) 5 mcg/hour Indications:Chronic Pain/Nonacute PainPlace 1 patch on the skin once a week Indication: Chronic Pain/Nonacute Pain. 4 patch 5Active metoclopramide (Reglan) 10 mg tablet Take 1 tablet (10 mg total) by mouth 4 (four) times a day before meals and bedtime. 40 tablet 5Active cefdinir (Omnicef) 300 mg capsule Indications:PyuriaTake 1 capsule (300 mg total) by mouth 2 (two) times a day before morning and evening meals for 7 days. 14 capsule 5Active carboxymethylcellulose (Refresh Plus) 0.5 % ophthalmic solution Administer 1 drop into both eyes 3 (three) times a day as needed for dry eyes. Active naloxone (Narcan) 4 mg/actuation nasal spray [place] one device into nostril upon signs of opioid overdose. Call 911. Repeat with second device inthe other nostril if no response within 2-3 minutes. Use 1 spray in 1 nostril. Repeat with second device in other nostril after 2-3 minutes if no or minimal response. 2 each 5Active amLODIPine (Norvasc) 5 mg tablet Take 1 tablet (5 mg total) by mouth daily. 90 tablet 5Active celecoxib (CeleBREX) 100 mg capsule Take 1 capsule (100 mg total) by mouth 2 (two) times a day. 10 capsule /5Active naloxone (Narcan) 4 mg/actuation nasal spray Administer 1 spray (4 mg total) into nostril(s) once for 1 dose. Use 1 spray in 1 nostril. Repeat with second device in other nostril after 2-3 minutes if no or minimal response. 2 each /10/2025Discontinued(Duplicate order) ondansetron ODT (Zofran-ODT) 4 mg disintegrating [...] hours as needed for anxiety. 60 tablet Discontinued(Therapy completed) pantoprazole (Protonix) 40 mg EC tablet Take 40 mg by mouth 2 (two) times a day before morning and evening meals. 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 90 tablet 110/Discontinued OLANZapine (ZyPREXA) 5 mg tablet Take 1 tablet (5 mg total) by mouth once for 1 dose. 1 tablet Discontinued gabapentin (Neurontin) 300 mg capsule Take 1 capsule (300 mg total) by mouth 2 (two) times a day. 180 capsule Discontinued buprenorphine (Butrans) 5 mcg/hour Indications:Chronic Pain/Nonacute PainPlace 1 patch on the skin once a week Indication: Chronic Pain/Nonacute Pain. 4 patch Discontinued(Reorder) granisetron (KytriL) 1 mg tablet Indications:Nausea And VomitingTake 1 tablet (1 mg total) by mouth daily as needed for nausea or vomiting. 20 tablet Discontinued(Therapy completed) HYDROmorphone (Dilaudid) 2 mg tablet Indications:Acute PainTake 1 tablet (2 mg total) by mouth every 3 (three) hours as needed for pain for up to 2 days Indication: Acute Pain. 12 tablet /Expired naloxone (Narcan) 4 mg/actuation nasal spray [place] one device into nostril upon signs of [...] a day for 7 days. 14 capsule Discontinued Active Problems Patient Care Coordination No [...] RSV: MMR: Local Lab/Provider: [place] [address] ProblemNoted DateDiagnosed DateAcute Cystitis Without Chbpudeud29/12/2025 Palliative Care08/11/2025Pain Left Lower Ioqnpqhl76/14/2025bdominal Pain 06/12/2025Nausea And Vcburxqs33/10/2025Pain Chicimujckm11/03/2025Depressive Gmkrtqif09/03/2025Transplant Stem Cell04/21/20258880Ngkmmxyhby44/22/2025Transplant Bone Marrow Iwsmidwoob51/14/2025Reaction Drug Adverse Personal Cpcejaj2011/07/2024 Leukemia Myeloid Chronic BCR/ABL Positive Wudijmkqz95/31/2024Insulin Resistance, Kljjpkswerb88/02/2022Eating Ufeqpfqg33/19/2022nxiety Generalized Disorder 08/14/2019Chronic Lflijckl14/30/2019Leukemia Myeloid Chronic BCR/ABL Positive Not Having Achieved Ujwxijltq97/23/2019 Cancer Staging: Clinical: Unsigned Adjustment Disorder With Anxious Mood01/07/2015DizzinessDepression Major Recurrent Moderate Resolved Problems ProblemNoted DateDiagnosed DateResolved MlklPgbqqdteh14 Encounter Admission For Qvrwldpyihpr84Pain Bone09/20/2020 12/10/2024Pain Jtgicglquq70Gastroesophageal Reflux Disease Sore Throat Uchzfik62Localized Enlarged Lymph NodesPain In Jointnemia12/17/2018 09/17/2019Thrombocytosis Tzouvguhljm83Leukocytosis12/17/2018 04/03/2019Leukemia Myeloid Chronic BCR/ABL Positive Not Having Achieved Vfmxcyoat35Depression Dqhnpdp534Constipation Counseling Fertility Preservation Pre Cancer Therapy Encounters DateTypeDepartmentCare LctwLqugkqdwwen25/17/2025Clinical Communication Department of Palliative Care in [place], [place] [address] [place] [phone] Jennifer Tolbert P.A.-C., M.S. 5Clinical Communication Department of Obstetrics and Gynecology in [place], [place] [address] [place] [phone] Prescheduling, Provider Treatment Plan Review (Internal CPP)5Clinical Communication [facility] in [place], [place] [address] [place] [address] Jessica Rousseau M.B.B.S. Symptom Xrcycewtpq60/16/2025Clinical Communication Division of Gastroenterology in [place], [place] [address] [place] [address] Derrick Cruz Jr., M.D., M.S. 11/03/2025Orders Only Division of Hematology in [place], [place] [address] [place] [address] Whit Werner M.D. 11/01/2025 11:36 AM CUSTODIAN SUPERVISOR - 11/03/2025 5:36 PM CSTHospital Encounter [facility], Tenth Floor [address] [place] [address] Marry Jarvis APRN, C.N.P., D.N.P. Felix Chavez M.D. Abdominal Pain (Primary Dx); Pain Chest; Pain Left Lower Quadrant Discharge Disposition: Home or Self Care11/01/2025Documentation [facility], Ninth Floor [address] [place] [address] Oli Lynch, PKatalinaA.Keshawn 5Clinical Communication [facility], Ninth Floor [address] [place] [address] Aishwarya Quintana R.N. 10/31/2025Orders Only [facility], Ninth Floor [address] [place] [address] Racquel Candelario APRN, C.N.P. 10/30/2025 10:00 AM CSTClinical Support Department of Palliative Care in [place], [place] [address] [place] [phone] Meghan Osorio M.D. Hicks, Lucy K, R.N., CHPN Nausea And Vomiting (Primary Dx)10/30/2025 9:00 AM CSTOffice Visit Department of Palliative Care in [place], [place] [address] [place] [phone] Meghan Osorio M.D. 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 Lito Pollock P.A.-C. 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 10/30/2025linical Communication Department of Obstetrics and Gynecology in [address] [phone] Prescheduling, Provider Treatment Plan Review (ED follow up )10/29/2025 2:15 PM CUSTODIAN SUPERVISOR - 10/30/2025 2:51 AM CSTEmergency [facility] [address] [place] [phone] Sean Beard M.D. Humza Person M.D., M.B.A. Lower Abdominal Pain Unspecified (Primary Dx); Pain Back; Pyuria; Adenomyosis Discharge Disposition: Home or Self Care5Clinical Communication [facility] in [place], [place] [address] [place] [address] Jessica Rousseau M.B.B.S. Communication (Having a hard time with all her symptoms )5Clinical Communication Department of Palliative Care in [place], [place] [address] [place] [phone] Felicia Watt APRN, C.N.P., M.S.N. Nurse Lnuuhwabuq37/10/2025linical Communication [facility] Trans[facility] Clinical [facility] in [place], [place] [address] [place] [phone] Jessica Rousseau M.B.B.S. 10/27/2025Orders Only [facility] in [place], [place] [address] [place] [phone] Devi Roper APRN, C.N.P., D.N.P. 10/26/2025 2:40 PM CUSTODIAN SUPERVISOR - 10/26/2025 6:09 PM CSTHospital Encounter [facility], [facility], Ninth Floor [address] [place] [address] Devi Roper APRN, C.N.P., D.N.P. 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 Transplant Bone Marrow Allogeneic (HCC) (Primary Dx)5Clinical Communication [facility] in [place], [place] [address] [place] [address] Jessica Rousseau M.B.B.SKatalina 5Clinical Communication [facility] Trans[facility] Clinical [facility]eneration in [place], [place] [address] [place] [phone] Jessica Rousseau M.B.B.SKatalina Communication (Sick )5Clinical Communication Department of Family Medicine, [facility], in [place], [place] [address] [place] [address] Gabby De Anda R.N. Quality (HCC Management/)10/13/2025 11:20 AM CSTNurse Only Section of Infectious Diseases in [place], [place] [address] [place] [address] Pato Sanchez M.D., Ph.D. Jennifer Marx RKatalinaN. Gkkomewrdaepp47/23/2025Refill Department of Palliative Care in [place], [place] [address] [place] [address] Felicia Watt APRN, JamariN.P., M.S.N. Med Xvzjqi5409/30/2025 8:41 AM CUSTODIAN SUPERVISOR - 09/30/2025 11:59 PM CSTHospital Encounter Department of Laboratory Medicine in [place], [place] [address] [place] [address] Jessica Rousseau M.B.B.S. 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 5Clinical Communication [facility] in [place], [place] [address] [place] [phone] Jessica Rousseau M.B.B.S. Symptom Feeaqqypsc08/12/2025Clinical Communication [facility] in [place], [place] [address] [place] [phone] Arely Taylor RFritz Lab Monitoring (09/30/25)5Clinical Communication [facility] in [place], [place] [address] [place] [phone] Transplant, Coordinator, R.N. Doljxppjojokb25/10/2025Clinical Communication Section of Infectious Diseases in [place], [place] [address] [place] [phone] David Alvarado RKatalinaNKatalina Prescreen Immunization Uuxiyn8309/24/2025Refill [facility] in [place], [place] [address] [place] [phone] Jessica Rousseau M.B.B.S. Med Kroobz4309/22/2025Orders Only [facility] PCP TH SUNNYT Renzo Andres M.D. 09/11/2025linical Communication Division of Hematology in [place], [place] [address] [place] [phone] Jessica Rousseau M.B.B.S. 09/03/2025Refill Department of Palliative Care in [place], [place] [address] [place] [phone] Meghan Osorio M.D. Med Stlwai445Clinical Communication [facility] in [place], [place] [address] [place] [address] Jessica Rousseau M.B.B.S. 08/31/2025Refill [facility] in [place], [place] [address] [place] [address] Jessica Rousseau M.B.B.S. Med Apzgez415Clinical Communication [facility] in [place], [place] [address] [place] [address] Geo Aguilar D.O. 08/18/2025Orders Only [facility] in [place], [place] [address] [place] [address] Jessica Rousseau M.B.B.S. 08/18/2025linical Communication [facility] in [place], [place] [address] [place] [address] Jessica Rousseau M.B.B.S. Phone Contact (Lab results)5Clinical Communication [facility], Ninth Floor [address] [place] [phone] Antonina Paul R.N. 5Clinical Communication [facility] in [place], [place] [address] [place] [address] Jessica Rousseau M.B.B.S. Phone Rtosrjv9808/17/2025Refill [facility], [facility], Ninth Floor [address] [place] [phone] Marky Pond M.D. Med Vducgk0308/16/2025Orders Only [facility], [facility], [facility], Ninth Floor [address] [place] [address] Marky Pond M.D. 08/16/2025Orders Only [facility] in [place], [place] [address] [place] [address] Gin Rubalcava APRN, C.N.P., D.N.P. 08/13/2025 11:30 AM CDTOffice Visit [facility] in [place], [place] [address] [place] [phone] Jessica Rousseau M.B.B.S. Bone Marrow Transplant Status (HCC) (Primary Dx)08/13/2025 11:00 AM CDTNurse Only [facility] in [place], [place] [address] [place] [address] Jessica Rousseau M.B.B.S. Vianney Alvares, R.N. 08/13/2025 10:30 AM CDTOffice Visit [facility] in [place], [place] [address] [place] [address] Jessica Rousseau M.B.B.S. Nelli Parker, Pharm.D., R.Ph. 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 Sudha French M.S.W., L.I.C.S.W. 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 Tucke, Kristine K, R.N. Ydeqqnpwsfzre05/23/2025 8:00 AM CDTOffice Visit Department of Palliative Care in [place], [place] [address] [place] [phone] Meghan Osorio M.D. 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 Surgical Jzjmikoie42/21/2025Documentation [facility], [facility], [facility], Ninth Floor [address] [place] [phone] Jessica Avila APRN, C.N.P., M.S.N. 08/09/2025linical Communication Pedro Nazario [facility] in [place], [place] [address] [place] [phone] Jessica Avila APRN, C.N.P., M.S.N. 08/08/2025Documentation [facility], [facility], Ninth Floor [address] [place] [address] Oli Lynch PKatalinaA.-C. 08/08/2025Orders Only [facility], [facility], Ninth Floor [address] [place] [address] Oli Lynch P.A.-C. from Last 3 Months Immunizations ImmunizationAdministration DatesNext Gpl3iAPB (discontinued)11/08/2007, 06/27/2007,04/26/2007DTaP-IPV/Hib (Pentacel)10/13/2025,08/11/2025,06/10/2025HZV (ZOSTAVAX)08/09/2023(Deferred: Patient ill today)HepA Adult06/10/2025HepB Adult 03/07/2001,10/31/2000,09/19/2000HepB Adult (HEPLISAV-B)08/11/2025,06/10/2025 Influenza TIV (IM)09/02/2012,08/14/2011,10/19/2003,09/17/2002,01/22/2002MCV4 (Menactra)(Discontinued)04/26/2007MENACWY-TT (MENQUADFI)(MCV4)08/11/2025, 06/10/2025MMR04/25/2001,03/07/20015274HYC8275/25/2025,08/11/2025,06/10/2025RZV (SHINGRIX)08/11/2025,06/10/20257482ZIZE-YXL-0 (COVID-19) - MODERNA(Discontinued) 10/31/2021,03/30/2021,03/02/2021Td (Adult), etgcwvvt27/22/7462Qxyx97/15/2012 influenza vaccine quad (FLUZONE/FLUARIX) (6 months and [...] been afraid of your partner or ex-partner?No 11/01/2025Within the last year, have you been humiliated or emotionally abused in other ways by your partner or ex-partner?No11/01/2025Within the last year, have you been kicked, hit, slapped, or otherwise physically hurt by your partner or ex-partner?No11/01/2025Within the last year, have you been raped or forced to have any kind of sexual activity by your partner or ex-partner?No11/01/2025 Hunger Vital SignAnswerDate RecordedWithin the past 12 months, you worried that your food would run out before you got the money to buymore.Never true11/01/2025 Within the past 12 months, the food you bought just didn't last and you didn't have money to get more.Never true11/01/2025PRAPARE - TransportationAnswerDate RecordedIn the past 12 months, has lack of transportation kept you from medical appointments or from getting medications?No11/01/2025In the past 12 months, has lack of transportation kept you from meetings, work, or from getting things needed for daily living?No11/01/2025HC UtilitiesAnswerDate RecordedIn the past 12 months has the electric, gas, oil, or water company threatened to shut off services in your home?No11/01/2025Postpartum DepressionAnswerDate RecordedPHQ-9 Total Score (max 27)12007/08/2025Housing StabilityAnswerDate RecordedWhat is your living situation today?I have a steady place to live11/01/2025EducationAnswer Date RecordedWhat is the highest level of school you have completed or the highest degree you have received?Some college, no kzgued7004/24/2019 CommentsNoSex and Gender InformationValueDate RecordedSex Assigned at Jfexfq3012/26/2018 8:37 PM CSTLegal EqyNamcjb06/02/2017 2:43 PM CSTGender Identity Qzxjfi1712/26/2018 8:37 PM CSTSexual OrientationChoose not to xpmquarq15/17/2021 3:46 PM CDT Last Filed Vital Signs Vital SignReadingTime TakenCommentsBlood Aulmfeyf058/9311/03/2025 2:41 PM CUSTODIAN SUPERVISOR Mmlgy626511/03/2025 2:41 PM SBREwgnlsxlukx71.7 ??C (98.1 ??F)11/03/2025 2:41 PM CSTRespiratory Zjrt537901/04/2025 2:41 PM CSTOxygen Hkoyynytfr07%11/03/2025 2:41 PM CSTInhaled Oxygen Concentration--Nbejgp128 kg (238 lb 5.1 oz)11/03/2025 10:01 AM OIAPjrggl843 cm (5' 8.11)11/01/2025 7:46 PM CSTBody Mass Index36.12 11/01/2025 7:46 PM CUSTODIAN SUPERVISOR Plan of Treatment DateTypeDepartmentCare Team (Latest Contact Info)Ubiwrsaywav47/29/2025 9:00 AM CSTOffice Visit Department of Obstetrics and Gynecology in [place], [place] [address] [place] [address] Alice Linares M.D. [address] [place] [phone] 11/17/2025 11:00 AM CSTTelemedicine Department of Palliative Care in [place], [place] [address] [place] [phone] Yary Landa D.O. [address] [place] [phone] 12/04/2025 1:30 PM CSTClinical Communication Virtual Review in [place], [place] [address] [place] [address] 12/07/2025 8:10 AM CSTLab Department of Laboratory Medicine and Pathology, [facility] in [place], [place] [address] [place] [phone] Jessica Rousseau M.B.B.S. [address] [place] [phone] 12/07/2025 9:15 AM CSTAppointment Outpatient Procedure Center in [place], [place] [address] [place] [phone] Jessica Rousseau M.B.B.S. [address] [place] [phone] 12/07/2025 11:00 AM CSTDiagnostic Division of Pulmonary Medicine in [place], [place] [address] [place] [phone] Jessica Rousseau M.B.B.S. [address] [place] [phone] 12/07/2025 1:00 PM CSTOffice Visit Pedro Aravind sanchez [facility] in [place], [place] [address] [place] [address] Jessica Rousseau M.B.B.S. [address] [place] [phone] 12/07/2025 1:30 PM CSTNurse Only [facility] [place], [place] [address] [place] [address] Jessica Rousseau M.B.B.S. [address] [place] [phone] 12/07/2025 2:00 PM CSTOffice Visit [facility] in [place], [place] [address] [place] [address] Jessica Rousseau M.B.B.S. [address] [place] [phone] 12/07/2025 3:00 PM CSTOffice Visit Department of Palliative Care in [place], [place] [address] [place] [phone] Martine Pardo B.M.B.S., B.M., B.Ch. [address] [place] [phone] Health MaintenanceDue DateLast DoneCommentsDental Qumkymidxns1989HIV Wgtotitiv1989Dilated Eye ExamCervical/Vaginal Cancer Gtvvrmxbw21, 10/15/2019, 11/25/2013Controlled Substance Upjaqkmyr02/18/2025ontrolled Substance Monitoring (UDS)04/05/2025PEG assessment for Opioid vgeujbx4004/05/2025Vaccine Post BMT: HPV (Gardasil) 3 Doses (#1) 5COVID-19 Vaccine ( season), 03/30/2021, 03/02/2021Influenza Vaccine (#1)/06/2019, 09/02/2012, 08/14/2011, Additional history existsDepression Monitoring (PHQ-9)/ Vaccine Post BMT: Hepatitis A 2 Doses (#2)Generalized Anxiety (HERMINIO-7)/03/2025Spirometry with DLCO or PFT03/23/2026 03/23/2025, 11/05/2024Lipid (Cholesterol) Mskrkqtzc22/04/2025, 06/23/2024, 09/08/2022Vaccine Post BMT: Pneumococcal (PCV20, age 2yrs+) 4 Doses (#4)/, 08/11/2025, 06/10/20258634Eytiwkhcbe93, 07/02/2025, 01/09/2025, Additional history existsVitamin D Bakyaqv5107/06/2026 07/06/2025, 03/24/2025, 11/04/2024, Additional history existsControlled Substance Monitoring (PHQ-9)Fasting Glucose for Diabetes Zelniqbxn68/, 11/02/2025, 11/01/2025, Additional history exists Hepatitis B JmehtkgslPdpoelxnvwsd30/24/2019Hepatitis C ScreeningCompleted 12/12/2018Depression Monitoring (PHQ-9 for quality tracking)Iibbjcgme83/05/2025 Opioid Risk Tool (ORT)Vdvsfvamn01/03/2025Vaccine Post BMT: CpG (Heplisav) 2 SqhsgSnbvxnjnc70/23/2025, 06/10/2025Vaccine Post BMT: Meningococcal (MenQuadfi, age 2+) 2 GmtxfUbztwcydd80/23/2025, 06/10/2025, 04/26/2007Vaccine Post BMT: Zoster (Shingrix) 2 LsxnkWgtfiyieu54/23/2025, 06/10/2025Vaccine Post BMT: DTaP 3 mvsyaVbhdmvmxp57/25/2025, 08/11/2025, 06/10/2025, Additional history exists Vaccine Post BMT: Hib 3 QxcsiJguzejhgl83/25/2025, 08/11/2025, 06/10/2025Vaccine Post BMT: IPV 3 KafrhIkefxgkbg34/25/2025, 08/11/2025, 06/10/2025Glucose Test for Med WlynbeecymWnwavaprqsya35/16/2025, 11/02/2025, 11/01/2025, Additional history exists Procedures Procedure NamePriorityDate/TimeAssociated DiagnosisCommentsCOMPREHENSIVE METABOLIC PANEL, S/YWpgczsp48/16/2025 5:02 AM CUSTODIAN SUPERVISOR CBC NO CALL BACK, REFLEX T/QCbuffzp61/16/2025 5:02 AM CUSTODIAN SUPERVISOR CBC NO CALL BACK, REFLEX T/VFwmbnsu29/15/2025 5:33 AM CUSTODIAN SUPERVISOR COMPREHENSIVE METABOLIC PANEL, S/BEpptzaj15/15/2025 5:33 AM CUSTODIAN SUPERVISOR TROPONIN T, 2H/6H REFLEX, 5TH GEN, LDfpko2211/01/2025 3:46 PM CUSTODIAN SUPERVISOR DX CHEST AP OR PA AND LATERAL 2 VIEWSRAD - Semiurgent (Fast; most ED patients; some inpatients)11/01/2025 2:13 PM CUSTODIAN SUPERVISOR LIPASE, S/PSTAT101/02/2025 1:22 PM CUSTODIAN SUPERVISOR HEPATIC FUNCTION PANEL, SSTAT101/02/2025 1:22 PM CUSTODIAN SUPERVISOR LACTATE, BSTAT101/02/2025 1:22 PM CUSTODIAN SUPERVISOR D-DIMER, PSTAT101/02/2025 1:22 PM CUSTODIAN SUPERVISOR NT-PRO B-TYPE NATRIURETIC PEPTIDE (BNP), SSTAT101/02/2025 1:22 PM CUSTODIAN SUPERVISOR PROTHROMBIN TIME (PT), PSTAT101/02/2025 1:22 PM CUSTODIAN SUPERVISOR TROPONIN T, BASELINE, 5TH GEN, PSTAT101/02/2025 1:22 PM CUSTODIAN SUPERVISOR BASIC METABOLIC PANEL, S/PSTAT101/02/2025 1:22 PM CUSTODIAN SUPERVISOR CBC WITH DIFFERENTIAL, BSTAT101/02/2025 1:22 PM CUSTODIAN SUPERVISOR PIIMBCR1511/01/2025 11:30 AM CUSTODIAN SUPERVISOR CD4 T-CELL COUNT, PSzoqhxy46/12/2025 7:55 AM CUSTODIAN SUPERVISOR 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) BCR/ABL1, P210, QUANT, YQNNCKESrlpqvl93/12/2025 7:55 AM CUSTODIAN SUPERVISOR Transplant Stem Cell (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 SZHRMUeteqec03/12/2025 7:55 AM CUSTODIAN SUPERVISOR Transplant Stem Cell (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) LACTATE DEHYDROGENASE (LD), RLizxrft95/12/2025 7:55 AM CUSTODIAN SUPERVISOR Transplant Stem Cell (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) CMV DNA DETECT/QUANT, YDjlrmoe80/12/2025 7:55 AM CUSTODIAN SUPERVISOR Transplant Stem Cell (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) US PELVIS TRANSVAGINAL AND TRANSABDOMINALRAD - Semiurgent (Fast; most ED patients; some inpatients)10/30/2025 12:25 AM CUSTODIAN SUPERVISOR SUCEIKP0210/29/2025 10:41 PM CUSTODIAN SUPERVISOR LACTATE, B/PPioxf3410/29/2025 8:[address] ABDOMEN PELVIS WITH IV CONTRASTRAD - Semiurgent (Fast; most ED patients; some inpatients)10/29/2025 3:56 PM CUSTODIAN SUPERVISOR MICROSCOPIC SNZOSPZIXX49/11/2025 2:49 PM CUSTODIAN SUPERVISOR DIPSTICK, USTAT112/30/2024 2:49 PM CUSTODIAN SUPERVISOR PH, USTAT112/30/2024 2:49 PM CUSTODIAN SUPERVISOR OSMOLALITY, USTAT112/30/2024 2:49 PM CUSTODIAN SUPERVISOR URINALYSIS WITH LBDOLWJKMUPRTQE84/11/2025 2:49 PM CUSTODIAN SUPERVISOR BACTERIAL CULTURE, AEROBIC + SUSC, MQFOVZMEL90/11/2025 2:49 PM CUSTODIAN SUPERVISOR HUMAN CHORIONIC GONADOTROPIN (HCG), JAGRUTI,STAT112/30/2024 2:41 PM CUSTODIAN SUPERVISOR LACTATE FOR SEPSIS WITH AXTWSCSVZV69/11/2025 2:41 PM CUSTODIAN SUPERVISOR CBC WITH DIFFERENTIAL, BSTAT112/30/2024 2:41 PM CUSTODIAN SUPERVISOR LIPASE, S/PSTAT112/30/2024 2:41 PM CUSTODIAN SUPERVISOR HEPATIC FUNCTION PANEL, SSTAT112/30/2024 2:41 PM CUSTODIAN SUPERVISOR BASIC METABOLIC PANEL, S/PSTAT112/30/2024 2:41 PM CUSTODIAN SUPERVISOR LACTATE DEHYDROGENASE (LD), GHorromx38/08/2025 1:40 PM CUSTODIAN SUPERVISOR 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 Achieved Remission (HCC) Transplant Bone Marrow Allogeneic (HCC) SODIUM, S/CEjntbll16/08/2025 1:40 PM CUSTODIAN SUPERVISOR Leukemia Myeloid Chronic BCR/ABL 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 Having Achieved Remission (HCC) Transplant Bone Marrow Allogeneic (HCC) POTASSIUM, S/LCribbhq38/08/2025 1:40 PM CUSTODIAN SUPERVISOR Leukemia Myeloid Chronic BCR/ABL 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 Having Achieved Remission (HCC) Transplant Bone Marrow Allogeneic (HCC) MAGNESIUM, HGfupvng23/08/2025 1:40 PM CUSTODIAN SUPERVISOR Leukemia Myeloid Chronic BCR/ABL Positive Not Having Achieved Remission (HCC) Transplant Bone Marrow Allogeneic (HCC) GLUCOSE, FASTING, S/LKmismuf31/08/2025 1:40 PM CUSTODIAN SUPERVISOR Leukemia Myeloid Chronic BCR/ABL Positive Not Having Achieved Remission (HCC) Transplant Bone Marrow Allogeneic (HCC) Abnormal Finding Of Blood Chemistry Unspecified CREATININE WITH EGFR, S/KHjorohi82/08/2025 1:40 PM CUSTODIAN SUPERVISOR Leukemia Myeloid Chronic BCR/ABL Positive Not Having Achieved Remission (HCC) Transplant Bone Marrow Allogeneic (HCC) CBC NO CALL BACK, REFLEX T/YNfddrym50/08/2025 1:40 PM CUSTODIAN SUPERVISOR Leukemia Myeloid Chronic BCR/ABL Positive Not Having Achieved Remission (HCC) Transplant Bone Marrow Allogeneic (HCC) CALCIUM, TOT, S/TIlodnds25/08/2025 1:40 PM CUSTODIAN SUPERVISOR Leukemia Myeloid Chronic BCR/ABL Positive Not Having Achieved Remission (HCC) Transplant Bone Marrow Allogeneic (HCC) BUN (BLOOD UREA NITROGEN), S/GXdowalm70/08/2025 1:40 PM CUSTODIAN SUPERVISOR Leukemia Myeloid Chronic BCR/ABL Positive Not Having Achieved Remission (HCC) Transplant Bone Marrow Allogeneic (HCC) BILIRUBIN, TOT, S/OByjancw24/08/2025 1:40 PM CUSTODIAN SUPERVISOR Leukemia Myeloid Chronic BCR/ABL Positive Not Having Achieved Remission (HCC) Transplant Bone Marrow Allogeneic (HCC) ASPARTATE AMINOTRANSFERASE (AST), S/LByiadvk16/08/2025 1:40 PM CUSTODIAN SUPERVISOR Leukemia Myeloid Chronic BCR/ABL Positive Not Having Achieved Remission (HCC) Transplant Bone Marrow Allogeneic (HCC) ALANINE AMINOTRANSFERASE (ALT), S/WDxjhwzq21/06/2025 1:40 PM CUSTODIAN SUPERVISOR Leukemia Myeloid Chronic BCR/ABL Positive Not Having Achieved Remission (HCC) Transplant Bone Marrow Allogeneic (HCC) ALKALINE PHOSPHATASE, S/QNiaxajg83/08/2025 1:40 PM CUSTODIAN SUPERVISOR Leukemia Myeloid Chronic BCR/ABL Positive Not Having Achieved Remission (HCC) Transplant Bone Marrow Allogeneic (HCC) ALBUMIN, S/FFsstnck98/08/2025 1:40 PM CUSTODIAN SUPERVISOR Leukemia Myeloid Chronic BCR/ABL Positive Not Having Achieved Remission (HCC) Transplant Bone Marrow Allogeneic (HCC) MAGNESIUM, FRbrrfpj94/12/2025 8:49 AM CUSTODIAN SUPERVISOR Leukemia Myeloid Chronic BCR/ABL Positive Not Having Achieved Remission (HCC) Transplant Stem Cell (HCC) GLUCOSE, FASTING, S/TRgdnovv45/12/2025 8:49 AM CUSTODIAN SUPERVISOR Leukemia Myeloid Chronic BCR/ABL Positive Not Having Achieved Remission (HCC) Transplant Stem Cell (HCC) Abnormal Finding Of Blood Chemistry Unspecified COMPREHENSIVE METABOLIC PANEL, S/MPtvkjrg98/12/2025 8:49 AM CUSTODIAN SUPERVISOR Leukemia Myeloid Chronic BCR/ABL Positive Not Having Achieved Remission (HCC) Transplant Stem Cell (HCC) CBC WITH DIFFERENTIAL, BIbowvsg79/12/2025 8:49 AM CUSTODIAN SUPERVISOR 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 Having Achieved Remission (HCC) Transplant Stem Cell (HCC) INFLUENZA A, B, RSV, PCR, RAPID, HGisvdqq27/25/2025 11:51 AM CDT 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) Transplant Stem Cell (HCC) Acute Upper Respiratory Infection Unspecified SARS CORONAVIRUS 2, PCR RAPID, LVftxxct62/25/2025 11:51 AM CDT 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) Transplant Stem Cell (HCC) CHIMERISM TRANSPLANT SORTED VDKYLYlljaed74/25/2025 10:21 AM CDT Leukemia Myeloid Chronic BCR/ABL Positive Not Having Achieved Remission (HCC) 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) CORTISOL, IOyflqgj63/25/2025 10:21 AM CDT Leukemia Myeloid Chronic BCR/ABL Positive Not Having Achieved Remission (HCC) 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) BCR/ABL1, P210, QUANT, CBJEIKEZiyqoff19/25/2025 10:21 AM CDT 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) Transplant Bone Marrow Allogeneic (HCC) SODIUM, S/TRtksyxg70/25/2025 10:21 AM CDT 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) Transplant Bone Marrow Allogeneic (HCC) POTASSIUM, S/KBjvngbu27/25/2025 10:21 AM CDT 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) Transplant Bone Marrow Allogeneic (HCC) MAGNESIUM, TQietpes17/25/2025 10:21 AM CDT 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) Transplant Bone Marrow Allogeneic (HCC) GLUCOSE, FASTING, S/IIosspoh92/25/2025 10:21 AM CDT 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) Transplant Bone Marrow Allogeneic (HCC) Fatigue CREATININE WITH EGFR, S/AIysuayw40/25/2025 10:21 AM CDT 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) Transplant Bone Marrow Allogeneic (HCC) CBC NO CALL BACK, REFLEX T/AEmykbga01/25/2025 10:21 AM CDT 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) Transplant Bone Marrow Allogeneic (HCC) CALCIUM, TOT, S/SIxeexci94/25/2025 10:21 AM CDT 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) Transplant Bone Marrow Allogeneic (HCC) BUN (BLOOD UREA NITROGEN), S/OVipicla35/25/2025 10:21 AM CDT 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) Transplant Bone Marrow Allogeneic (HCC) BILIRUBIN, TOT, S/PTzdbnzl09/25/2025 10:21 AM CDT 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) Transplant Bone Marrow Allogeneic (HCC) ASPARTATE AMINOTRANSFERASE (AST), S/QXvafrst15/25/2025 10:21 AM CDT 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) Transplant Bone Marrow Allogeneic (HCC) ALANINE AMINOTRANSFERASE (ALT), S/YDqofxip79/25/2025 10:21 AM CDT 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) Transplant Bone Marrow Allogeneic (HCC) ALKALINE PHOSPHATASE, S/LTrkruts33/25/2025 10:21 AM CDT 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) Transplant Bone Marrow Allogeneic (HCC) ALBUMIN, S/UTlemigj59/25/2025 10:21 AM CDT 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) Transplant Bone Marrow Allogeneic (HCC) CMV DNA DETECT/QUANT, GEogysct48/25/2025 10:21 AM CDT 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) Transplant Bone Marrow Allogeneic (HCC) LACTATE DEHYDROGENASE (LD), HAvbbotc48/25/2025 10:20 AM CDT 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) Transplant Bone Marrow Allogeneic (HCC) CREATINE KINASE (CK), NHmgxzbw75/25/2025 10:14 AM CDT Transplant Stem Cell (HCC) 25-HYDROXYVITAMIN D2 AND D3, PJfvfujn28/18/2025 5:46 AM CDT LIPID PANEL, MIicikij40/06/2025 9:29 AM CDT 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) Abnormal Finding Of Blood Chemistry Unspecified Follow Up Examination Following Bone Marrow Transplant PULMONARY FUNCTION KQPDGVhuhzfv17/05/2025 9:48 AM CDT 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) Transplant Bone Marrow Allogeneic (HCC) Abnormal Finding Of Blood Chemistry Unspecified Encounter Admission For Chemotherapy THINPREP W/HPV CO-TEST SAVZWHQsdfmgr80/27/2019 11:05 AM CUSTODIAN SUPERVISOR Pap Smear Examination HCV AB SCRN W/REFLEX TO HCV PCR, CRvfcp7812/12/2018 5:58 PM CUSTODIAN SUPERVISOR HEPATITIS B SURFACE ZZVIRAXHmflu85/24/2019 5:58 PM CUSTODIAN SUPERVISOR from Last 3 Months or Most Recently Relevant to Health Maintenance Results * (ABNORMAL) CBC no call back, reflex T/S HGB <8 (11/03/2025 5:02 AM CUSTODIAN SUPERVISOR) Only the most recent of4 resultswithin the time period is included. ComponentValueRef RangeTest MethodAnalysis TimePerformed AtPathologist Signature Cwdnyneqgc80.611.6 - 15.0 g/dL11/03/2025 5:26 AM PFAAVJBlctfmrcye41.9(L)35.5 - 44.9 %11/03/2025 5:26 AM CSTDTLErythrocytes4.163.92 - 5.13 x10(12)/L101/04/2025 5:26 AM JFXCVWFBW74.978.2 - 97.9 fL11/03/2025 5:26 AM CSTDTLRBC Distrib Width 13.212.2 - 16.1 %11/03/2025 5:26 AM CSTDTLPlatelet Omkga660008 - 371 x10(9)/L 11/03/2025 5:26 AM CSTDTLLeukocytes2.5(L)3.4 - 9.6 x10(9)/L101/04/2025 5:26 AM CSTDTLNeutrophils1.30(L)1.56 - 6.45 x10(9)/L101/04/2025 5:26 AM CSTDHPM Lymphocytes0.71(L)0.95 - 3.07 x10(9)/L101/04/2025 5:26 AM CSTDTLMonocytes0.22(L) 0.26 - 0.81 x10(9)/L101/04/2025 5:26 AM CSTDTLEosinophils0.250.03 - 0.48 x10(9)/L 11/03/2025 5:26 AM CSTDTLBasophils0.030.01 - 0.08 x10(9)/L101/04/2025 5:26 AM CUSTODIAN SUPERVISOR DTLSpecimen (Source)Anatomical Location / LateralityCollection Method / Volume Collection TimeReceived TimeBlood (Blood, Venous)11/03/2025 5:02 AM CUSTODIAN SUPERVISOR 11/03/2025 5:20 AM CUSTODIAN SUPERVISOR Narrative Authorizing ProviderResult TypeResult StatusWhit Werner M.D.LAB BLOOD NON ADD-ONFinal ResultPerforming OrganizationAddressCity/State/ZIP CodePhone Number [address] [address], [facility] DTL [facility] [address] [place], [place] [address] [place] [phone] * (ABNORMAL) Comprehensive Metabolic Panel (11/03/2025 5:02 AM CUSTODIAN SUPERVISOR) Only the most recent of3 resultswithin the time period is included. ComponentValueRef RangeTest MethodAnalysis TimePerformed AtPathologist Signature Potassium, S4.63.6 - 5.2 mmol/L101/04/2025 7:04 AM CSTDTLSodium, I443736 - 145 mmol/L101/04/2025 7:04 AM CSTDTLChloride, O17574 - 107 mmol/L101/04/2025 7:04 AM CSTDTLBicarbonate, S2422 - 29 mmol/L101/04/2025 7:04 AM CSTDTLAnion Vbn253 - 15 11/03/2025 7:04 AM CSTDTLBUN (Blood Urea Nitrogen), S126 - 21 mg/dL11/03/2025 7:04 AM CSTDTLCreatinine0.740.59 - 1.04 mg/dL11/03/2025 7:04 AM CSTDTLEstimated GFR (eGFR)>90>=60 mL/min/BSA11/03/2025 7:04 AM CSTDTLComment: Estimated [...] Venous) 11/03/2025 5:02 AM CST11/03/2025 5:34 AM CUSTODIAN SUPERVISOR Narrative Authorizing ProviderResult TypeResult Jose Francisco Werner M.D.LAB BLOOD ADD-ONFinal ResultPerforming OrganizationAddressCity/State/ZIP CodePhone Number [facility] [address] [place] [address], [place] DTL [facility] [address] [place] [address] * Troponin T, 2 Hour with 6 Hour Reflex, 5th Gen (11/01/2025 3:46 PM CUSTODIAN SUPERVISOR) ComponentValueRef RangeTest MethodAnalysis TimePerformed AtPathologist SignatureTroponin T, 2 hr, 5th gen<6<=10 ng/L101/02/2025 4:12 PM OHINJRW8L Oxufi1ox/L101/02/2025 4:12 PM CSTSTMAComment:6 hour collection not indicated.2H Delta InterpNot Zqnldlaq04/14/2025 4:12 PM CSTSTMASpecimen (Source)Anatomical Location / LateralityCollection Method / VolumeCollection TimeReceived Time Blood11/01/2025 3:46 PM CST11/01/2025 3:51 PM CUSTODIAN SUPERVISOR Narrative Authorizing ProviderResult TypeResult StatusMarry Jarvis APRN, C.N.P., D.N.P. LAB BLOOD TROPONINFinal ResultPerforming OrganizationAddressCity/State/ZIP Code Phone Number [facility] [address] [place] [address], [facility] [address] [place] [address] * DX Chest AP or PA and Lateral 2 Views (11/01/2025 2:13 PM CUSTODIAN SUPERVISOR)Anatomical RegionLateralityModalityChest, Thoracic RST LOS, Thoracic ARZ LOS, Thoracic FLA LOSN/ADigital RadiographySpecimen (Source)Anatomical Location / Laterality Collection Method / VolumeCollection TimeReceived Time Impressions 11/01/2025 2:30 PM CUSTODIAN SUPERVISOR Since 12/23/2024, the right IJ CVC has been removed. Remainder unchanged. No focal consolidation, pleural effusion or pneumothorax. Stable heart size. Narrative 11/01/2025 2:30 PM CUSTODIAN SUPERVISOR EXAM: DX CHEST AP OR PA AND LATERAL 2 VIEWS Procedure Note Geo Edgar M.D. - 11/01/2025 EXAM: DX CHEST AP OR PA AND LATERAL 2 VIEWS IMPRESSION: Since 12/23/2024, the right IJ CVC has been removed. Remainder unchanged.No focal consolidation, pleural effusion or pneumothorax. Stable heartsize. Authorizing ProviderResult TypeResult StatusMarry Jarvis APRN, C.N.P., D.N.P. IMG DIAGNOSTIC IMAGING PROCEDURESFinal Result * Lactate, B (11/01/2025 1:22 PM CUSTODIAN SUPERVISOR)ComponentValueRef RangeTest MethodAnalysis TimePerformed AtPathologist SignatureLactate, B1.80.5 - 2.2 mmol/L101/02/2025 1:40 PM CSTSTMASpecimen (Source)Anatomical Location / LateralityCollection Method / VolumeCollection TimeReceived TimeBlood (Blood, Venous)11/01/2025 1:22 PM CST11/01/2025 1:39 PM CUSTODIAN SUPERVISOR Narrative Authorizing ProviderResult TypeResult StatusMarry Jarvis APRN, C.N.P., D.N.P. LAB BLOOD NON ADD-ONFinal ResultPerforming OrganizationAddressCity/State/ZIP CodePhone Number [facility] [address] [place] [address], [facility] [address] [place] [address] * Troponin T, Baseline with 2 Hour/6 Hour Reflex Biomarker Panel (11/01/2025 1:22 PM CUSTODIAN SUPERVISOR)ComponentValueRef RangeTest MethodAnalysis TimePerformed At Pathologist SignatureTroponin T, Baseline, 5th gen<6<=10 ng/L101/02/2025 2:12 PM CSTSTMASpecimen (Source)Anatomical Location / LateralityCollection Method / VolumeCollection TimeReceived TimeBlood (Blood, Venous)11/01/2025 1:22 PM CUSTODIAN SUPERVISOR 11/01/2025 1:40 PM CUSTODIAN SUPERVISOR Narrative Authorizing ProviderResult TypeResult StatusMarry Jarvis APRN C.N.P., D.N.P. LAB BLOOD TROPONINFinal ResultPerforming OrganizationAddressCity/State/ZIP Code Phone Number [facility] [address] [place] [address], [facility] [address] [place] [address] * (ABNORMAL) Hepatic Function Panel (11/01/2025 1:22 PM CUSTODIAN SUPERVISOR) Only the most recent of2 resultswithin the time period is included. ComponentValueRef RangeTest MethodAnalysis TimePerformed AtPathologist Signature Bilirubin, Total, S0.30.0 - 1.2 mg/dL11/01/2025 2:04 PM CSTDTLBilirubin, Direct, S<0.10.0 - 0.3 mg/dL11/01/2025 2:04 PM CSTDTLAspartate Aminotransferase (AST), S 378 - 43 U/L101/02/2025 2:04 PM CSTDTLAlanine Aminotransferase (ALT), S50(H)7 - 45 U/L101/02/2025 2:04 PM CSTDTLAlkaline Phosphatase, S9235 - 104 U/L101/02/2025 2:04 PM CSTDTLAlbumin, S4.43.5 - 5.0 g/dL11/01/2025 2:04 PM CSTDTLProtein, Total, S7.16.3 - 7.9 g/dL11/01/2025 2:04 PM CSTDTLSpecimen (Source)Anatomical Location / LateralityCollection Method / VolumeCollection TimeReceived TimeBlood (Blood, Venous)11/01/2025 1:22 PM CST11/01/2025 1:48 PM CUSTODIAN SUPERVISOR Narrative Authorizing ProviderResult TypeResult StatusEmma Tim Jarvis APRN, C.N.P., D.N.P. LAB BLOOD ADD-ONFinal ResultPerforming OrganizationAddressCity/State/ZIP Code Phone Number [place] [address] [place] [address], [facility] DTL [facility] [address] [place] [address] * NT-Pro B-Type Natriuretic Peptide (BNP) (11/01/2025 1:22 PM CUSTODIAN SUPERVISOR)ComponentValue Ref RangeTest MethodAnalysis TimePerformed AtPathologist SignatureNT-Pro BNP [...] Collection TimeReceived TimeBlood (Blood, Venous)11/01/2025 1:22 PM CUSTODIAN SUPERVISOR 11/01/2025 1:40 PM CUSTODIAN SUPERVISOR Narrative Authorizing ProviderResult TypeResult StatusEmma Tim Matheus BRANTLEY C.N.P., D.N.P. LAB BLOOD ADD-ONFinal ResultPerforming OrganizationAddressCity/State/[facility] Code Phone Number [facility] [address] [place] [address], [facility] [address] [place] [address] * Prothrombin Time (PT) (11/01/2025 1:22 PM CUSTODIAN SUPERVISOR)ComponentValueRef RangeTest MethodAnalysis TimePerformed AtPathologist SignatureProthrombin Time, P10.59.4 - 12.5 sec11/01/2025 1:47 PM CSTSTMAINR1.00.9 - 1. 1:47 PM CSTSTMA Comment: ----ADDITIONAL INFORMATION---- Standard intensity warfarin therapeutic range: 2.0 to 3.0 ?? High intensity warfarin therapeutic range: 2.5 to 3.5 Specimen (Source)Anatomical Location / LateralityCollection Method / Volume Collection TimeReceived TimeBlood (Blood, Venous)11/01/2025 1:22 PM CUSTODIAN SUPERVISOR 11/01/2025 1:40 PM CUSTODIAN SUPERVISOR Narrative Authorizing ProviderResult TypeResult StatusMarry Tim Jamari Jarvis APRNNLuigi., D.N.P. LAB BLOOD ADD-ONFinal ResultPerforming OrganizationAddressCity/State/ZIP Code Phone Number [facility] [address] [place] [address], [facility] [address] [place] [address] * D-Dimer (11/01/2025 1:22 PM CUSTODIAN SUPERVISOR)ComponentValueRef RangeTest MethodAnalysis TimePerformed AtPathologist SignatureD-Dimer, P418<=500 ng/mL FEU101/02/2025 1:48 PM CSTSTMAComment: ----ADDITIONAL INFORMATION---- D-dimer values less than or equal to 500 ng/mL fibrinogen equivalent units (FEU) may be used in conjunction with clinical pre-test probability to exclude deep vein thrombosis (DVT) and/or pulmonary embolism (PE). Specimen (Source)Anatomical Location / LateralityCollection Method / Volume Collection TimeReceived TimeBlood (Blood, Venous)11/01/2025 1:22 PM CUSTODIAN SUPERVISOR 11/01/2025 1:40 PM CUSTODIAN SUPERVISOR Narrative Authorizing ProviderResult TypeResult StatusEmJamari Thao APRNNKatalinaP., D.N.P. LAB BLOOD ADD-ONFinal ResultPerforming OrganizationAddressCity/State/ZIP Code Phone Number [facility] [address] [place] [address], [facility] STMA [facility] [address] [place] [address] * CBC with Differential, Blood (11/01/2025 1:22 PM CUSTODIAN SUPERVISOR) Only the most recent of3 resultswithin the time period is included. ComponentValueRef RangeTest MethodAnalysis TimePerformed AtPathologist Signature Pbgladbhir30.211.6 - 15.0 g/dL11/01/2025 1:43 PM PJGTTQWVqamjqmacl97.935.5 - 44.9 %11/01/2025 1:43 PM CSTSTMAErythrocytes4.493.92 - 5.13 x10(12)/L101/02/2025 1:43 PM CAHCGUIKAW68.478.2 - 97.9 fL11/01/2025 1:43 PM CSTSTMARBC Distrib Width 13.212.2 - 16.1 %11/01/2025 1:43 PM CSTSTMAPlatelet [id number] - 371 x10(9)/L 11/01/2025 1:43 PM CSTSTMALeukocytes4.03.4 - 9.6 x10(9)/L101/02/2025 1:43 PM CUSTODIAN SUPERVISOR STMANeutrophils2.241.56 - 6.45 x10(9)/L101/02/2025 1:43 PM CSTDHPMLymphocytes1.13 0.95 - 3.07 x10(9)/L101/02/2025 1:43 PM CSTSTMAMonocytes0.320.26 - 0.81 x10(9)/L 11/01/2025 1:43 PM CSTSTMAEosinophils0.270.03 - 0.48 x10(9)/L101/02/2025 1:43 PM CSTSTMABasophils0.050.01 - 0.08 x10(9)/L101/02/2025 1:43 PM CSTSTMASpecimen (Source)Anatomical Location / LateralityCollection Method / VolumeCollection TimeReceived TimeBlood (Blood, Venous)11/01/2025 1:22 PM CST11/01/2025 1:40 PM CUSTODIAN SUPERVISOR Narrative Authorizing ProviderResult TypeResult StatusWebb Tim Matheus BRANTLEY, C.N.P., D.N.P. LAB BLOOD ADD-ONFinal ResultPerforming OrganizationAddressCity/State/ZIP Code Phone Number [facility] [address] [place] [address], [facility] [address] [place], [place] [id number] [place] [address] [address] [place] [address] * Lipase (11/01/2025 1:22 PM CUSTODIAN SUPERVISOR) Only the most recent of2 resultswithin the time period is included. ComponentValueRef RangeTest MethodAnalysis TimePerformed AtPathologist Signature Lipase, S2513 - 60 U/L101/02/2025 2:04 PM CSTDTLSpecimen (Source)Anatomical Location / LateralityCollection Method / VolumeCollection TimeReceived TimeBlood (Blood, Venous)11/01/2025 1:22 PM CST11/01/2025 1:48 PM CUSTODIAN SUPERVISOR Narrative Authorizing ProviderResult TypeResult StatusEmia Tim Matheus BRANTLEY C.N.P., D.N.P. LAB BLOOD ADD-ONFinal ResultPerforming OrganizationAddressCity/State/ZIP Code Phone Number [facility] [address] [place] [address], [facility] DTL [facility] [address] [place] [address] * Basic Metabolic Panel (11/01/2025 1:22 PM CUSTODIAN SUPERVISOR) Only the most recent of2 resultswithin the time period is included. ComponentValueRef RangeTest MethodAnalysis TimePerformed AtPathologist Signature Potassium, P3.93.6 - 5.2 mmol/L101/02/2025 1:57 PM CSTSTMASodium, Q121941 - 145 mmol/L101/02/2025 1:57 PM CSTSTMAChloride, Y47542 - 107 mmol/L101/02/2025 1:57 PM CSTSTMABicarbonate, P2322 - 29 mmol/L101/02/2025 1:57 PM CSTSTMAAnion Gap, P147 - 15101/02/2025 1:57 PM CSTSTMABUN (Blood Urea Nitrogen), P116 - 21 mg/dL11/01/2025 1:57 PM CSTSTMACreatinine0.740.59 - 1.04 mg/dL11/01/2025 1:57 PM CSTSTMA Estimated GFR (eGFR)>90>=60 mL/min/BSA11/01/2025 1:57 PM CSTSTMAComment: Estimated GFR calculated using the 2020 CKD_EPI creatinine equation. Calcium, Total, P9.48.6 - 10.0 mg/dL11/01/2025 1:57 PM CSTSTMAGlucose, P9970 - 140 mg/dL11/01/2025 1:57 PM CSTSTMASpecimen (Source)Anatomical Location / LateralityCollection Method / VolumeCollection TimeReceived TimeBlood (Blood, Venous)11/01/2025 1:22 PM CST11/01/2025 1:40 PM CUSTODIAN SUPERVISOR Narrative Authorizing ProviderResult TypeResult StatusEmma Tim Jarvis APRN, C.N.P., D.N.P. LAB BLOOD ADD-ONFinal ResultPerforming OrganizationAddressCity/State/ZIP Code Phone Number [facility] [address] [place] [address], [facility] [address] [place] [address] * ECG 12 Lead (11/01/2025 11:30 AM CUSTODIAN SUPERVISOR) Only the most recent of2 resultswithin the time period is included. ComponentValueRef RangeTest MethodAnalysis TimePerformed AtPathologist Signature Ventricular Rate ECG/Gni70FMSKDZYMB Bbnfwrgo331vdCJIJHVSY Mruhypck46kjIDTUCF Eipugrbr812sxMNECVZH Jbzmzxvf618opSWODR Apyt05sbspmvkMUBPU Qpee98toijreeGQVGJ Wave Ddxr69ovetztzASSBAmkviayx (Source)Anatomical Location / Laterality Collection Method / VolumeCollection TimeReceived Time11/01/2025 11:30 AM CUSTODIAN SUPERVISOR 11/01/2025 11:50 AM CUSTODIAN SUPERVISOR Impressions MUSE - 11/01/2025 11:50 AM CUSTODIAN SUPERVISOR Normal sinus rhythm Nonspecific T wave abnormality When compared with ECG of 29-Oct-2025 22:41, No significant change was found Reviewed by LEONEL Khan Narrative Procedure Note Frank Rodriguez M.D. - 11/01/2025 IMPRESSION: Normal sinus rhythm Nonspecific T wave abnormality When compared with ECG of 29-Oct-2025 22:41, No significant change was found Reviewed by LEONEL Khan Authorizing ProviderResult TypeResult StatusEmma Tim Jarvis APRN C.N.P., D.N.P. ECG ORDERABLESFinal ResultPerforming OrganizationAddressCity/State/ZIP CodePhone Number MUSE NA * Chimerism Transplant Sorted Cells (10/30/2025 7:55 AM CUSTODIAN SUPERVISOR) Only the most recent of2 resultswithin the time period is included. ComponentValueRef RangeTest MethodAnalysis TimePerformed AtPathologist Signature Specimen TypePeripheral blood11/03/2025 1:30 PM CSTDTLInterpretationPeripheral blood, chimerism analysis: CD3-positive T-cells: ??The CD3-positive fraction contains approximately 95% donor DNA and approximately 5% recipient DNA. TQ52-rlipsxrj myeloid cells: ??The TN93-kcjzopuv fraction contains approximately 100% donor DNA and [...] purity of 95% or greater. Markers analyzed: N3T3209, K6I8743, FGA, SE33, vWA, D21S11, X96M9545, V93T5399, G29V052, D18S51, I0M346, J9G2226, CSF1PO, L2M907, W72V793, B00M780, TPOX, C57R679, F1K300 and C5W9265 11/03/2025 1:30 PM CSTDTLComment: ----ADDITIONAL INFORMATION---- Method summary - Chimerism: ??Genomic DNA was extracted and the specimen evaluated for the percentages of donor and recipient DNA using a PCR-based method that amplifies several highly polymorphic short tandem repeats (see [facility] Interpretive Handbook for method details). This test was developed and its performance characteristics determined by [facility] in a manner consistent with CLIA requirements. This test has not been cleared or approved by the U.S. Food and Drug Administration. Specimen (Source)Anatomical Location / LateralityCollection Method / Volume Collection TimeReceived TimeBlood (Blood, Peripheral Draw)10/30/2025 7:55 AM CUSTODIAN SUPERVISOR 10/30/2025 8:24 AM CUSTODIAN SUPERVISOR Narrative Authorizing ProviderResult TypeResult StatusKicarlotta Roper APRN, C.N.P., D.N.P.LAB GENETIC TESTINGFinal ResultPerforming OrganizationAddress City/State/ZIP CodePhone Number [facility] [address] [place] [address], [email or web address] 200 [facility] [address] [place] [address] * CMV DNA Detect / Quant, Plasma (10/30/2025 7:55 AM CUSTODIAN SUPERVISOR) Only the most recent of2 resultswithin the time period is included. ComponentValueRef RangeTest MethodAnalysis TimePerformed AtPathologist Signature CMV DNA Detect/Quant, PUndetectedUndetected IU/mL10/30/2025 11:09 PM CSTSDSC Comment: Result in log IU/mL is Undetected. ----ADDITIONAL INFORMATION---- The quantification range of this assay is 35 to 10,000,000 IU/mL (1.54 log to 7.00 log IU/mL). Testing was performed using the lucrecia CMV test ([employer] Specimen (Source)Anatomical Location / LateralityCollection Method / Volume Collection TimeReceived TimeBlood (Blood, Venous)10/30/2025 7:55 AM CUSTODIAN SUPERVISOR 10/30/2025 10:07 AM CUSTODIAN SUPERVISOR Narrative Authorizing ProviderResult TypeResult StatusKiJamari Bess APRNN.P., D.N.P.LAB MICROBIOLOGY - BLOOD ORDERABLESFinal ResultPerforming Organization AddressCity/State/ZIP CodePhone Number [facility] [address] [place] [address] [facility] [address] [place] [address] [place], [place] [address] * BCR/ABL1, p210, mRNA Detection, Reverse Fruit Cutter-PCR (RT-PCR), Quantitative, Monitoring Chronic Myeloid Leukemia (CML) (10/30/2025 7:55 AM CUSTODIAN SUPERVISOR) Only the most recent of2 resultswithin the time period is included. ComponentValueRef RangeTest MethodAnalysis TimePerformed AtPathologist Signature Specimen TypePeripheral blood11/02/2025 4:41 PM CSTDTLBCR/ABL1, p210 Resultsee pelrokhxkluolf53/15/2025 4:41 PM CSTDTLInterpretationPeripheral blood, BCR/ABL1 mRNA level [...] level was evaluated using a quantitative, reverse title checker PCR. The analytical sensitivity of this assay [...] all possible fusion forms. Please contact the [facility] at [phone] with questions or if additional testing is required. See the [facility] Interpretive Handbook for method details. [...] developed and its performance characteristics determined by [facility] in a manner consistent with CLIA requirements. This test has not been cleared or approved by the U.S. Food and Drug Administration. Specimen (Source)Anatomical Location / LateralityCollection Method / Volume Collection TimeReceived TimeBlood (Blood, Venous)10/30/2025 7:55 AM CUSTODIAN SUPERVISOR 10/30/2025 8:25 AM CUSTODIAN SUPERVISOR Narrative Authorizing ProviderResult TypeResult StatusKicarlotta Roper APRN, C.N.P., D.N.P.LAB BLOOD NON ADD-ONFinal ResultPerforming OrganizationAddress City/State/ZIP CodePhone Number [facility] [address] [place] [address], [facility] DT [address] [place] [address] * (ABNORMAL) CD4 Count for Immune Monitoring (10/30/2025 7:55 AM CUSTODIAN SUPERVISOR)Component ValueRef RangeTest MethodAnalysis TimePerformed AtPathologist DkazemvoaEC86 Total Lymph Count0.870.82 - 2.84 thou/mcL10/30/2025 4:06 PM CSTSDSC% CD3 (T Cells)56(L)58 - 86 %10/30/2025 4:06 PM CSTSDSCCD3 (T Cells)487(L)550 - 2202 cells/mcL10/30/2025 4:06 PM CSTSDSC% CD4 (T Cells)28(L)32 - 64 %10/30/2025 4:06 PM CSTSDSCCD4 (T Cells)245(L)365 - 1437 cells/mcL10/30/2025 4:06 PM CUSTODIAN SUPERVISOR SDSC% CD8 (T Cells)2815 - 40 %10/30/2025 4:06 PM CSTSDSCCD8 T Prymz976542 - 846 cells/[facility]10/30/2025 4:06 PM CSTSDSC4/8 Ratio1.0>=0.91/10/2025 4:06 PM CUSTODIAN SUPERVISOR SDSC% Sample Zxkzxlzmn56%10/30/2025 4:06 PM CSTSDSC% Lymphocyte Pigzcmhne88% 10/30/2025 4:06 PM CSTSDSCComment: ----ADDITIONAL INFORMATION---- This test was developed and its performance characteristics determined by [facility] in a manner consistent with CLIA requirements. This test has not been cleared or approved by the U.S. Food and Drug Administration. Specimen (Source)Anatomical Location / LateralityCollection Method / Volume Collection TimeReceived TimeBlood (Blood, Venous)10/30/2025 7:55 AM CUSTODIAN SUPERVISOR 10/30/2025 9:49 AM CUSTODIAN SUPERVISOR Narrative Authorizing ProviderResult TypeResult StatusYapeng P.A.-C.LAB BLOOD ADD-ON Final ResultPerforming OrganizationAddressCity/State/ZIP CodePhone Number [facility] [address] [place] [address] [facility] [address] [place] [address] [place] [address] * LD (Lactate Dehydrogenase) (10/30/2025 7:55 AM CUSTODIAN SUPERVISOR) Only the most recent of3 resultswithin the time period is included. ComponentValueRef RangeTest MethodAnalysis TimePerformed AtPathologist [facility] QF270382 - 222 U/L112/31/2024 9:11 AM CSTDTLSpecimen (Source) Anatomical Location / LateralityCollection Method / VolumeCollection Time Received TimeBlood (Blood, Venous)10/30/2025 7:55 AM CST10/30/2025 8:42 AM CUSTODIAN SUPERVISOR Narrative Authorizing ProviderResult TypeResult StatusKimbsyed Roper APRN, C.N.P., D.N.P.LAB BLOOD NON ADD-ONFinal ResultPerforming OrganizationAddress City/State/ZIP CodePhone Number [facility] [address] [place] [address], [place] DTL [facility] [address] [place] [address] * US Pelvis Transvaginal and Transabdominal (10/30/2025 12:25 AM CUSTODIAN SUPERVISOR)Anatomical RegionLateralityModalityPelvis, Ultrasound RST LOS, Ultrasound ARZ LOS, Ultrasound FLA LOSN/AUltrasoundSpecimen (Source)Anatomical Location / LateralityCollection Method / VolumeCollection TimeReceived Time Impressions 10/30/2025 7:30 AM CUSTODIAN SUPERVISOR 1. Heterogeneous appearance of the myometrium, which can be seen with uterine adenomyosis. 2. ??Normal sonographic appearance of the bilateral ovaries with patent arterial vasculature. The ovarian veins were not visualized bilaterally. No definite evidence of ovarian torsion. Narrative 10/30/2025 7:30 AM CUSTODIAN SUPERVISOR EXAM: US PELVIS TRANSVAGINAL AND TRANSABDOMINAL Exam [...] evidence of ovarian torsion. Authorizing ProviderResult TypeResult StatusChrisdeepthi Beard M.D.[facility] US PROCEDURESFinal Result * Lactate (10/29/2025 8:15 PM CUSTODIAN SUPERVISOR)ComponentValueRef RangeTest MethodAnalysis TimePerformed AtPathologist SignatureLactate, P1.60.5 - 2.2 mmol/L112/30/2024 8:54 PM CSTSTMASpecimen (Source)Anatomical Location / LateralityCollection Method / VolumeCollection TimeReceived QtxyIicnk75/11/2025 8:15 PM CUSTODIAN SUPERVISOR 10/29/2025 8:32 PM CUSTODIAN SUPERVISOR Narrative Authorizing ProviderResult TypeResult StatusJennyfer Paulino M.D.LAB BLOOD NON ADD-ONFinal ResultPerforming OrganizationAddressCity/State/ZIP CodePhone Number [facility] [address] [place] [address], [place] STMA [facility] [address] [place] [address] * CT Abdomen Pelvis with IV Contrast (10/29/2025 3:56 PM CUSTODIAN SUPERVISOR)Anatomical Region LateralityModalityAbdomen, Pelvis, Abdominal RST LOS, Abdominal ARZ LOS, Abdominal FLA LOSN/AComputed Tomography, Computed TomographySpecimen (Source) Anatomical Location / LateralityCollection Method / VolumeCollection Time Received Time10/29/2025 3:48 PM CUSTODIAN SUPERVISOR Impressions 10/29/2025 4:00 PM CUSTODIAN SUPERVISOR 1. Decompressed bladder is difficult to characterize but with apparent wall thickening. Correlate with urinalysis. No hydronephrosis. 2. ??Diffuse hepatic steatosis. 3. ??Spleen size, as detailed. Narrative 10/29/2025 4:00 PM CUSTODIAN SUPERVISOR EXAM: CT ABDOMEN PELVIS WITH IV CONTRAST [...] Authorizing ProviderResult TypeResult StatusMadeline Marisa Marquez P.A.-C., M.S.[facility] [place] PROCEDURESFinal Result * (ABNORMAL) Dipstick, Urine (10/29/2025 2:49 PM CUSTODIAN SUPERVISOR)ComponentValueRef RangeTest MethodAnalysis TimePerformed AtPathologist SignatureHemoglobin, QL, UNegative Hnknrxwj32/11/2025 3:38 PM CSTDTLLeukocyte Esterase, UModerate(A)Negative 10/29/2025 3:38 PM CSTDTLNitrite, PNvlhdtsiBeuuqmwo88/11/2025 3:38 PM CSTDTL Ketone, UNegativeNegative mg/dL10/29/2025 3:38 PM CSTDTLGlucose, UNegative Negative mg/dL10/29/2025 3:38 PM CSTDTLSpecimen (Source)Anatomical Location / LateralityCollection Method / VolumeCollection TimeReceived TimeUrine 10/29/2025 2:49 PM CST10/29/2025 3:24 PM CUSTODIAN SUPERVISOR Narrative Authorizing ProviderResult TypeResult StatusChharitha Beard M.D.LAB URINE ORDERABLESFinal ResultPerforming OrganizationAddressCity/State/[place] [address], [facility] [place] [address] * (ABNORMAL) Microscopic Manual (10/29/2025 2:49 PM CUSTODIAN SUPERVISOR)ComponentValueRef Range Test MethodAnalysis TimePerformed AtPathologist SignatureMicroscopyAbnormal 10/29/2025 3:59 PM CSTDTLRBC<3<3 /hpf10/29/2025 3:59 PM WZMQIODKS80-38(A)/hpf 10/29/2025 3:59 PM CSTDTLComment: ----REFERENCE VALUE---- <4 (Males) <11 (Females) Transitional Epithelial Cells1-3(A)/hpf10/29/2025 3:59 PM CSTDTLSquamous Epithelial Cells, U11-20/hpf10/29/2025 3:59 PM CSTDTLBacteriaPresent(A) 10/29/2025 3:59 PM CSTDTLSpecimen (Source)Anatomical Location / Laterality Collection Method / VolumeCollection TimeReceived NluxGhunn24/11/2025 2:49 PM CST10/29/2025 3:37 PM CUSTODIAN SUPERVISOR Narrative Authorizing ProviderResult TypeResult StatusJennyfer MurciaD.LAB URINE ORDERABLESFinal ResultPerforming OrganizationAddress[facility]/State/ZIP CodePhone Number [facility] [address] [place] [address], [facility] [address] [place] [address] * Bacterial Culture, Aerobic + Susceptibility, Urine (10/29/2025 2:49 PM CUSTODIAN SUPERVISOR) ComponentValueRef RangeTest MethodAnalysis TimePerformed AtPathologist SignatureUrine CultureUrogenital microbiota, susceptibilities not performed per laboratory criteria. 10/30/2025 10:30 AM CSTDTLSpecimen (Source)Anatomical Location / Laterality Collection Method / VolumeCollection TimeReceived TimeUrine (Urine, Midstream) 10/29/2025 2:49 PM CST10/29/2025 4:21 PM CSTComment:Specimen Source Site: Urine Narrative Authorizing ProviderResult TypeResult StatusSean Beard M.D.LAB MICROBIOLOGY - GENERAL ORDERABLESFinal ResultPerforming OrganizationAddress City/State/ZIP CodePhone Number [facility] [address] [place] [address], [facility] [address] [place] [address] * pH, Urine (10/29/2025 2:49 PM CUSTODIAN SUPERVISOR)ComponentValueRef RangeTest MethodAnalysis TimePerformed AtPathologist SignaturepH, U5.44.5 - 8. 3:52 PM CUSTODIAN SUPERVISOR DTLSpecimen (Source)Anatomical Location / LateralityCollection Method / Volume Collection TimeReceived BigrLjmfl37/11/2025 2:49 PM CST10/29/2025 3:24 PM CUSTODIAN SUPERVISOR Narrative Authorizing ProviderResult TypeResult StatusSean Beard M.D.LAB URINE ORDERABLESFinal ResultPerforming OrganizationAddressCity/State/ZIP Code Phone Number [facility] [address] [place] [address], [facility] [address] [place] [address] * Osmolality, Urine (10/29/2025 2:49 PM CUSTODIAN SUPERVISOR)ComponentValueRef RangeTest Method Analysis TimePerformed AtPathologist SignatureOsmolality, T115476 - 1150 mOsm/kg10/29/2025 3:52 PM CSTDTLSpecimen (Source)Anatomical Location / LateralityCollection Method / VolumeCollection TimeReceived TimeUrine 10/29/2025 2:49 PM CST10/29/2025 3:24 PM CUSTODIAN SUPERVISOR Narrative Authorizing ProviderResult TypeResult StatusChristopher Linsey Beard M.D.LAB URINE ORDERABLESFinal ResultPerforming OrganizationAddressCity/State/ZIP Code Phone Number [facility] [address] [place] [address], [facility] [address] [place] [address] * Urinalysis, with Microscopic: Urine, Midstream (10/29/2025 2:49 PM CUSTODIAN SUPERVISOR) ComponentValueRef RangeTest MethodAnalysis TimePerformed AtPathologist SignatureSourceUrine, Urine, Qnyagslkf21/11/2025 3:24 PM CSTDTLColor, UYellow 10/29/2025 3:24 PM CSTDTLClarity, HBjvgv5610/29/2025 3:24 PM CSTDTLProtein, U17 <26 mg/dL10/29/2025 4:15 PM CSTDTLProtein/Osmolality0.26<0.42 ratio10/29/2025 4:15 PM CSTDTLPredicted 24 HR Protein, U195<229 mg/24 10/29/2025 4:15 PM CUSTODIAN SUPERVISOR DTLPredicted Wkfom63-072bh/24 10/29/2025 4:15 PM CSTDTLSpecimen (Source) Anatomical Location / LateralityCollection Method / VolumeCollection Time Received TimeUrine (Urine, Midstream)10/29/2025 2:49 PM CST10/29/2025 3:24 PM CUSTODIAN SUPERVISOR Narrative Authorizing ProviderResult TypeResult StatusChristopher Linsey Beard M.D.LAB URINE ORDERABLESFinal ResultPerforming OrganizationAddressCity/State/ZIP Code Phone Number [facility] [address] [place] [address], [facility] [address] [place] [address] * Lactate for Sepsis with Reflex (10/29/2025 2:41 PM CUSTODIAN SUPERVISOR)ComponentValueRef Range Test MethodAnalysis TimePerformed AtPathologist SignatureLactate, P2.20.5 - 2.2 mmol/L112/30/2024 3:13 PM CSTSTMASpecimen (Source)Anatomical Location / LateralityCollection Method / VolumeCollection TimeReceived TimeBlood (Blood, Venous)10/29/2025 2:41 PM CST10/29/2025 2:59 PM CUSTODIAN SUPERVISOR Narrative Authorizing ProviderResult TypeResult StatusChharitha Beard M.D.LAB BLOOD NON ADD-ONFinal ResultPerforming OrganizationAddressCity/State/ZIP Code Phone Number [facility] [address] [place], [place] [address] [place] [address] * hCG (Human Chorionic Gonadotropin), Quantitative, (10/29/2025 2:41 PM CUSTODIAN SUPERVISOR)ComponentValueRef RangeTest MethodAnalysis TimePerformed AtPathologist SignatureHCG, Quantitative, , P1.0<5 IU/L112/30/2024 3:18 PM CSTSTMA Specimen (Source)Anatomical Location / LateralityCollection Method / Volume Collection TimeReceived TimeBlood (Blood, Venous)10/29/2025 2:41 PM CUSTODIAN SUPERVISOR 10/29/2025 2:58 PM CUSTODIAN SUPERVISOR Narrative Authorizing ProviderResult TypeResult StatusChharitha Beard M.D.LAB BLOOD ADD-ONFinal ResultPerforming OrganizationAddressCity/State/ZIP CodePhone Number [facility] [address] [place], [place] [address] [place] [address] [address] [place] [address] * BUN (Blood Urea Nitrogen) (10/26/2025 1:40 PM CUSTODIAN SUPERVISOR) Only the most recent of2 resultswithin the time period is included. ComponentValueRef RangeTest MethodAnalysis TimePerformed AtPathologist Signature BUN (Blood Urea Nitrogen), S86 - 21 mg/dL10/26/2025 2:39 PM CSTDTLSpecimen (Source)Anatomical Location / LateralityCollection Method / VolumeCollection TimeReceived TimeBlood (Blood, Venous)10/26/2025 1:40 PM CST10/26/2025 2:04 PM CUSTODIAN SUPERVISOR Narrative Authorizing ProviderResult TypeResult StatusSatnam Foster APRN.N.P., D.N.P.LAB BLOOD ADD-ONFinal ResultPerforming OrganizationAddressCity/State/ZIP CodePhone Number [facility] [address] [place] [address], [address] [address] * (ABNORMAL) ALT (Alanine Aminotransferase) (10/26/2025 1:40 PM CUSTODIAN SUPERVISOR) Only the most recent of2 resultswithin the time period is included. ComponentValueRef RangeTest MethodAnalysis TimePerformed AtPathologist Signature Alanine Aminotransferase (ALT), S61(H)7 - 45 U/L112/27/2024 2:39 PM CSTDTL Specimen (Source)Anatomical Location / LateralityCollection Method / Volume Collection TimeReceived TimeBlood (Blood, Venous)10/26/2025 1:40 PM CUSTODIAN SUPERVISOR 10/26/2025 2:04 PM CUSTODIAN SUPERVISOR Narrative Authorizing ProviderResult TypeResult StatusSatnam Foster APRN.N.P., D.N.P.LAB BLOOD ADD-ONFinal ResultPerforming OrganizationAddressCity/State/ZIP CodePhone Number [facility] [address] [place] [address], [place] [address] * (ABNORMAL) AST (Aspartate Aminotransferase) (10/26/2025 1:40 PM CUSTODIAN SUPERVISOR) Only the most recent of2 resultswithin the time period is included. ComponentValueRef RangeTest MethodAnalysis TimePerformed AtPathologist Signature Aspartate Aminotransferase (AST), P46(H)8 - 43 U/L112/27/2024 2:19 PM CSTMETH Specimen (Source)Anatomical Location / LateralityCollection Method / Volume Collection TimeReceived TimeBlood (Blood, Venous)10/26/2025 1:40 PM CUSTODIAN SUPERVISOR 10/26/2025 1:55 PM CUSTODIAN SUPERVISOR Narrative Authorizing ProviderResult TypeResult StatusDevi Roper APRN C.N.P., D.N.P.LAB BLOOD ADD-ONFinal ResultPerforming OrganizationAddressCity/State/ZIP CodePhone Number [facility] [address] [place] [address], [facility] METH [facility] [address] [place] [address] * Sodium (10/26/2025 1:40 PM CUSTODIAN SUPERVISOR) Only the most recent of2 resultswithin the time period is included. ComponentValueRef RangeTest MethodAnalysis TimePerformed AtPathologist Signature Sodium, R632323 - 145 mmol/L112/27/2024 2:39 PM CSTDTLSpecimen (Source)Anatomical Location / LateralityCollection Method / VolumeCollection TimeReceived TimeBlood (Blood, Venous)10/26/2025 1:40 PM CST10/26/2025 2:04 PM CUSTODIAN SUPERVISOR Narrative Authorizing ProviderResult TypeResult StatusDevi Roper APRN, C.N.P., D.N.P.LAB BLOOD ADD-ONFinal ResultPerforming OrganizationAddressCity/State/ZIP CodePhone Number [facility] [address] [place] [address], [facility] [address] [place] [address] * Potassium (10/26/2025 1:40 PM CUSTODIAN SUPERVISOR) Only the most recent of2 resultswithin the time period is included. ComponentValueRef RangeTest MethodAnalysis TimePerformed AtPathologist Signature Potassium, S3.83.6 - 5.2 mmol/L112/27/2024 2:39 PM CSTDTLSpecimen (Source) Anatomical Location / LateralityCollection Method / VolumeCollection Time Received TimeBlood (Blood, Venous)10/26/2025 1:40 PM CST10/26/2025 2:04 PM CUSTODIAN SUPERVISOR Narrative Authorizing ProviderResult TypeResult StatusDevi Roper APRN, C.N.P., D.N.P.LAB BLOOD ADD-ONFinal ResultPerforming OrganizationAddressCity/State/ZIP CodePhone Number [facility] [address] [place] [address], [address] [address] * Alkaline Phosphatase (10/26/2025 1:40 PM CUSTODIAN SUPERVISOR) Only the most recent of2 resultswithin the time period is included. ComponentValueRef RangeTest MethodAnalysis TimePerformed AtPathologist Signature Alkaline Phosphatase, D67228 - 104 U/L112/27/2024 2:39 PM CSTDTLSpecimen (Source) Anatomical Location / LateralityCollection Method / VolumeCollection Time Received TimeBlood (Blood, Venous)10/26/2025 1:40 PM CST10/26/2025 2:04 PM CUSTODIAN SUPERVISOR Narrative Authorizing ProviderResult TypeResult StatusDevi Roper APRN C.N.P., D.N.P.LAB BLOOD ADD-ONFinal ResultPerforming OrganizationAddressCity/State/ZIP CodePhone Number [facility] [address] [place] [address], [facility] [address] [place] [address] * Magnesium (10/26/2025 1:40 PM CUSTODIAN SUPERVISOR) Only the most recent of3 resultswithin the time period is included. ComponentValueRef RangeTest MethodAnalysis TimePerformed AtPathologist Signature Magnesium, S2.11.7 - 2.3 mg/dL10/26/2025 2:39 PM CSTDTLSpecimen (Source) Anatomical Location / LateralityCollection Method / VolumeCollection Time Received TimeBlood (Blood, Venous)10/26/2025 1:40 PM CST10/26/2025 2:04 PM CUSTODIAN SUPERVISOR Narrative Authorizing ProviderResult TypeResult StatusDevi Roper APRN, C.N.P., D.N.P.LAB BLOOD ADD-ONFinal ResultPerforming OrganizationAddressCity/State/ZIP CodePhone Number [facility] [address] [place] [address], [facility] [address] [place] [address] * (ABNORMAL) Glucose, Fasting (10/26/2025 1:40 PM CUSTODIAN SUPERVISOR) Only the most recent of3 resultswithin the time period is included. ComponentValueRef RangeTest MethodAnalysis TimePerformed AtPathologist Signature Glucose, P155(H)70 - 100 mg/dL10/26/2025 3:45 PM CSTDTLLast Avjxtv0uy94/08/2025 2:04 PM CSTDTLSpecimen (Source)Anatomical Location / LateralityCollection Method / VolumeCollection TimeReceived TimeBlood (Blood, Venous)10/26/2025 1:40 PM CUSTODIAN SUPERVISOR 10/26/2025 2:04 PM CUSTODIAN SUPERVISOR Narrative Authorizing ProviderResult TypeResult StatusDevi Roper APRN C.N.P., D.N.P.LAB BLOOD NON ADD-ONFinal ResultPerforming OrganizationAddress City/State/ZIP CodePhone Number [facility] [address] [place] [address] * Creatinine with Estimated GFR (10/26/2025 1:40 PM CUSTODIAN SUPERVISOR) Only the most recent of2 resultswithin the time period is included. ComponentValueRef RangeTest MethodAnalysis TimePerformed AtPathologist Signature Creatinine0.700.59 - 1.04 mg/dL10/26/2025 2:39 PM CSTDTLEstimated GFR (eGFR)>90 >=60 mL/min/BSA10/26/2025 2:39 PM CSTDTLComment: Estimated GFR calculated using the 2020 CKD_EPI creatinine equation. Specimen (Source)Anatomical Location / LateralityCollection Method / Volume Collection TimeReceived TimeBlood (Blood, Venous)10/26/2025 1:40 PM CUSTODIAN SUPERVISOR 10/26/2025 2:04 PM CUSTODIAN SUPERVISOR Narrative Authorizing ProviderResult TypeResult StatusDevi Roper APRN, C.N.P., D.N.P.LAB BLOOD ADD-ONFinal ResultPerforming OrganizationAddressCity/State/ZIP CodePhone Number [facility] [address] [place] [address], [facility] [address] [place] [address] * Calcium, Total (10/26/2025 1:40 PM CUSTODIAN SUPERVISOR) Only the most recent of2 resultswithin the time period is included. ComponentValueRef RangeTest MethodAnalysis TimePerformed AtPathologist Signature Calcium, Total, S9.68.6 - 10.0 mg/dL10/26/2025 2:39 PM CSTDTLSpecimen (Source) Anatomical Location / LateralityCollection Method / VolumeCollection Time Received TimeBlood (Blood, Venous)10/26/2025 1:40 PM CST10/26/2025 2:04 PM CUSTODIAN SUPERVISOR Narrative Authorizing ProviderResult TypeResult StatusDevi Roper APRN C.N.P., D.N.P.LAB BLOOD ADD-ONFinal ResultPerforming OrganizationAddressCity/State/[place] [address], [facility] [place] [address] * Bilirubin, Total (10/26/2025 1:40 PM CUSTODIAN SUPERVISOR) Only the most recent of2 resultswithin the time period is included. ComponentValueRef RangeTest MethodAnalysis TimePerformed AtPathologist Signature Bilirubin, Total, P0.30.0 - 1.2 mg/dL10/26/2025 2:19 PM CSTMETHSpecimen (Source) Anatomical Location / LateralityCollection Method / VolumeCollection Time Received TimeBlood (Blood, Venous)10/26/2025 1:40 PM CST10/26/2025 1:55 PM CUSTODIAN SUPERVISOR Narrative Authorizing ProviderResult TypeResult StatusDevi Roper APRN, C.N.P., D.N.P.LAB BLOOD ADD-ONFinal ResultPerforming OrganizationAddressCity/State/[place] [address], [facility] METH [address] [address] * Albumin (10/26/2025 1:40 PM CUSTODIAN SUPERVISOR) Only the most recent of2 resultswithin the time period is included. ComponentValueRef RangeTest MethodAnalysis TimePerformed AtPathologist Signature Albumin, S4.53.5 - 5.0 g/dL10/26/2025 2:39 PM CSTDTLSpecimen (Source)Anatomical Location / LateralityCollection Method / VolumeCollection TimeReceived TimeBlood (Blood, Venous)10/26/2025 1:40 PM CST10/26/2025 2:04 PM CUSTODIAN SUPERVISOR Narrative Authorizing ProviderResult TypeResult StatusDevi Roper APRN C.N.P., D.N.P.LAB BLOOD ADD-ONFinal ResultPerforming OrganizationAddressCity/State/ZIP CodePhone Number [facility] [address] [place] [address], [facility] DTL [facility] [address] [place] [address] * Influenza A, B, RSV, PCR, Rapid (08/13/2025 11:51 AM CDT)ComponentValueRef RangeTest MethodAnalysis TimePerformed AtPathologist SignatureInfluenza A, PCR, Rapid, IMvtxpbviJpaagrxy13/25/2025 12:51 PM CDTMETHInfluenza B, PCR, Rapid, EElufshnfCmhuacnd02/25/2025 12:51 PM CDTMETHResp Synctial Virus, PCR, BnvcaYbizzfuuQunpmhsq16/25/2025 12:51 PM CDTMETHSpecimen SourceSwab, Gnogxoglorv85/25/2025 12:36 PM CDTMETHSpecimen (Source)Anatomical Location / LateralityCollection Method / VolumeCollection TimeReceived TimeSwab (Nasopharynx)08/13/2025 11:51 AM CDT08/13/2025 12:01 PM CDT Narrative Authorizing ProviderResult TypeResult StatusAaherb Cook.B.S.LAB MICROBIOLOGY - GENERAL ORDERABLESFinal ResultPerforming OrganizationAddress City/State/ZIP CodePhone Number [facility] [address] [place] [address], [facility] METH [facility] [address] [place] [address] * SARS Coronavirus 2, PCR Rapid Symptomatic (08/13/2025 11:51 AM CDT)Component ValueRef RangeTest MethodAnalysis TimePerformed AtPathologist SignatureSARS CoV-2, PCR, Rapid, FIwjqfarxgsHhbuqzonuc60/25/2025 12:51 PM CDTMETHSARS Coronavirus 2, Rapid, SourceSwab, Vdrtvdnejzl43/25/2025 12:01 PM CDTMETH Specimen (Source)Anatomical Location / LateralityCollection Method / Volume Collection TimeReceived TimeSwab (Nasopharynx)08/13/2025 11:51 AM CDT 08/13/2025 12:01 PM CDT Narrative Authorizing ProviderResult TypeResult StatusAaherb Cook.B.S.LAB MICROBIOLOGY - GENERAL ORDERABLESFinal ResultPerforming OrganizationAddress City/State/ZIP CodePhone Number [facility] [address] [place] [address], [facility] METH [facility] [address] [place] [address] * Cortisol (08/13/2025 10:21 AM CDT)ComponentValueRef RangeTest MethodAnalysis TimePerformed AtPathologist SignatureCortisol, Random, S7.8mcg/dL08/13/2025 11:24 AM CDTDTLComment: ----REFERENCE VALUE---- AM (3368-6954): 4.8-20 PM (8884-1872): 2.5-12 Specimen (Source)Anatomical Location / LateralityCollection Method / Volume Collection TimeReceived TimeBlood (Blood, Venous)08/13/2025 10:21 AM CDT 08/13/2025 10:31 AM CDT Narrative Authorizing ProviderResult TypeResult StatusJessica LiconaSKatalinaLAB BLOOD ADD-ONFinal ResultPerforming OrganizationAddressCity/State/ZIP CodePhone Number [facility] [address] [place] [address], [facility] [address] [place] [address] * CK (Creatine Kinase) (08/13/2025 10:14 AM CDT)ComponentValueRef RangeTest MethodAnalysis TimePerformed AtPathologist SignatureCreatine Kinase (CK), S38 26 - 192 U/L08/13/2025 12:32 PM CDTDTLSpecimen (Source)Anatomical Location / LateralityCollection Method / VolumeCollection TimeReceived TimeBlood (Blood, Venous)08/13/2025 10:14 AM CDT08/13/2025 12:07 PM CDT Narrative Authorizing ProviderResult TypeResult StatusJessica LiconaSKatalinaLAB BLOOD ADD-ONFinal ResultPerforming OrganizationAddressCity/State/ZIP CodePhone Number [facility] [address] [place] [address], [facility] [address] [place] [address] * 25-Hydroxyvitamin D2 and D3 (07/06/2025 5:46 AM CDT)ComponentValueRef Range Test MethodAnalysis TimePerformed AtPathologist Xsorybtce37-Ogpbqie D2<4.0 ng/mL07/07/2025 10:42 AM ULULVAT16-Uuqdioq D327ng/mL07/07/2025 10:42 AM CDT HFTL86-Vrirxaw D Rgbjs46en/mL07/07/2025 10:42 AM CDTSDSCComment: ----REFERENCE VALUE---- 25-HYDROXY D TOTAL (D2+D3) Optimum levels in the healthy population are 20-50. ----ADDITIONAL INFORMATION---- This test was developed and its performance characteristics determined by [facility] in a manner consistent with CLIA requirements. This test has not been cleared or approved by the U.S. Food and Drug Administration. Specimen (Source)Anatomical Location / LateralityCollection Method / Volume Collection TimeReceived TimeBlood (Blood, Venous)07/06/2025 5:46 AM CDT 07/06/2025 10:21 AM CDT Narrative Authorizing ProviderResult TypeResult StatusUrsula Satnam Mcconnell APRN.N.P., M.S.N. LAB BLOOD ADD-ONFinal ResultPerforming OrganizationAddressCity/State/ZIP Code Phone Number [facility] [address] [place] [address] [facility] [address] [place] [address] [place] [address] * (ABNORMAL) Lipid Panel (03/24/2025 9:29 AM CDT)ComponentValueRef RangeTest MethodAnalysis TimePerformed AtPathologist NbqfulyvzOjbmivhouqdwg610(H)mg/dL 03/24/2025 10:28 AM CDTDTLComment: ----REFERENCE VALUE---- Normal: <150 mg/dL Borderline High: 150-199 mg/dL High: 200-499 mg/dL Very High: > or =500 mg/dL Cholesterol, Iyvin901hu/dL03/24/2025 10:28 AM CDTDTLComment: ----REFERENCE VALUE---- Desirable: < 200 mg/dL Borderline High: 200 - 239 mg/dL High: > or = 240 mg/dL Cholesterol, LDL, Nuznsxxmib296yd/dL03/24/2025 10:28 AM CDTDTLComment: ----REFERENCE VALUE---- Desirable: <100 mg/dL Above Desirable: 100-129 mg/dL Borderline High: 130-159 mg/dL High: 160-189 mg/dL Very High: >=190 mg/dL ----ADDITIONAL INFORMATION---- LDL cholesterol calculated using the Thompson/NIH equation. Cholesterol, HDL, S44(L)>=50 mg/dL03/24/2025 10:28 AM CDTDTLCholesterol, Non- HDL, Bpoivazusu736rw/dL03/24/2025 10:28 AM CDTDTLComment: ----REFERENCE VALUE---- Desirable: <130 mg/dL Above Desirable: 130-159 mg/dL Borderline High: 160-189 mg/dL High: 190-219 mg/dL Very High: > or =220 mg/dL Fasting (8 HR or more)No03/24/2025 9:30 AM CDTDTLSpecimen (Source)Anatomical Location / LateralityCollection Method / VolumeCollection TimeReceived TimeBlood (Blood, Venous)03/24/2025 9:29 AM CDT03/24/2025 9:47 AM CDT Narrative Authorizing ProviderResult TypeResult StatusAaherb BarnesLAB BLOOD ADD-ONFinal ResultPerforming OrganizationAddressCity/State/[place] [address], [facility] DTL [facility] [address] [place] [address] * Pulmonary Function Tests (03/23/2025 9:48 AM CDT)ComponentValueRef RangeTest MethodAnalysis TimePerformed AtPathologist SignatureFVC5.33L03/23/2025 11:15 AM CDTMAYO SENTRY BBNMVSOD15.40L03/23/2025 11:15 AM CDTMAYO SENTRY SUITE FEV1/FVC82.70%03/23/2025 11:15 AM CDTMAYO SENTRY DXSVKPAZ98-46%4.89L/s 03/23/2025 11:15 AM CDTMAYO SENTRY SUITEPEF PRE8.01L/s003/23/2025 11:15 AM CDT [place] SUITEPIF PRE8.12L/s003/23/2025 11:15 AM CDTMAYO SENTRY SUITEPre FEF50/NYP8997.59%03/23/2025 11:15 AM CDTMAYO SENTRY SUITEFET PRE6.33sec 03/23/2025 11:15 AM CDTMAYO SENTRY YJMJRIMBE12.95ml/(min*mmHg)03/23/2025 11:15 AM CDTMAYO SENTRY KIBGBTADQk20.32ml/(min*mmHg)03/23/2025 11:15 AM CDTMAYO SENTRY TELUTGT27.70g(Hb)/dL03/23/2025 11:15 AM CDTMAYO SENTRY SUITEPre % Pred VA SINGLE BREATH6.32L03/23/2025 11:15 AM CDTMAYO SENTRY RSHLZScaiyVlaj87.00 1/min03/23/2025 11:15 AM CDTMAYO SENTRY LVQNDH8LacOcby85.00%03/23/2025 11:15 AM CDTMAYO SENTRY YAVWIYweoaUyka227.001/min03/23/2025 11:15 AM CDTMAYO SENTRY SUITEEXER TIME3.81jio1103/23/2025 11:15 AM CDTMAYO SENTRY SUITESTEP HEIGHT PRE 9.56Dtdx7803/23/2025 11:15 AM CDTMAYO SENTRY SUITESpecimen (Source)Anatomical Location / LateralityCollection Method / VolumeCollection TimeReceived Time 03/23/2025 9:48 AM CDT Impressions [place] GERRY KANCHAN - 03/23/2025 11:15 AM CDT Normal spirometry [...] BarnesPFT ORDERABLES Final ResultPerforming OrganizationAddressCity/State/ZIP CodePhone Number [place] [address] * ThinPrep w/HPV Co-Test Screen (10/15/2019 11:05 AM CUSTODIAN SUPERVISOR)ComponentValueRef Range Test MethodAnalysis TimePerformed AtPathologist SignatureCase Number [id number]/03/2019 4:10 PM CSTHKCYReport electronically signed byJEFF Mora(ASCP) I verify that I have examined all relevant slides/materials for the specimen(s) and rendered or confirmed the diagnosis. 10/21/2019 4:10 PM CSTHKCYGross DescriptionReceived specimen in a ThinPrep vial. 10/21/2019 4:10 PM CSTHKCYPap Test SourceCervical/Ypgcbvpflgzq04/03/2019 4:10 PM CSTHKCYClinical Jhssmozaveuj52/03/2019 4:10 PM CSTHKCYMenstrual Status(LMP, PM, )on depo beddfi2110/21/2019 4:10 PM CSTHKCYHormone Therapy/Contraceptives Hormone Replacement Osfxmfq1110/21/2019 4:10 PM CSTHKCYInterpretation Cervical/Endocervical ??(ThinPrep): Satisfactory for Evaluation Negative for Intraepithelial Lesion or Malignancy High Risk HPV: ??Negative Negative for High Risk HPV by nucleic acid amplification. The following High Risk HPV types were not detected: 16, 18, 31, 33, 35, 39, 45, 51, 52, 56, 58, 59, 66, and 68. 10/21/2019 4:10 PM CSTHKCYSpecimen (Source)Anatomical Location / Laterality Collection Method / VolumeCollection TimeReceived TimeVaries (Cervix/Endocervix) 10/15/2019 11:05 AM CST10/17/2019 7:54 AM CUSTODIAN SUPERVISOR Narrative Authorizing ProviderResult TypeResult StatusAdore Alonso M.D.LAB PAP PATHDX ORDERABLESFinal ResultPerforming OrganizationAddressCity/State/ZIP Code Phone Number [facility] [address] [place] [address], [facility] HKCY [facility] [address] [place] [address] * HCV Ab Scrn w/Reflex to HCV PCR, Serum (12/12/2018 5:58 PM CUSTODIAN SUPERVISOR)ComponentValue Ref RangeTest MethodAnalysis TimePerformed AtPathologist SignatureHCV Ab Screen, MMtcffxjcKffhroze06/24/2019 10:[address] [facility] HOSPITALComment:Ydwgvg-qg-avhtds ratio is <1.00.Specimen (Source) Anatomical Location / LateralityCollection Method / VolumeCollection Time Received TimeBlood (Blood, Venous)12/12/2018 5:58 PM CST12/12/2018 7:59 PM CUSTODIAN SUPERVISOR Narrative Authorizing ProviderResult TypeResult StatusAdore Yip APRN, C.N.P., D.N.P.LAB MICROBIOLOGY - BLOOD ORDERABLESFinal ResultPerforming Organization AddressCity/State/ZIP CodePhone Number [facility] [address] [place] [address] * Hepatitis B Surface Antigen (12/12/2018 5:58 PM CUSTODIAN SUPERVISOR)ComponentValueRef Range Test MethodAnalysis TimePerformed AtPathologist SignatureHBs Antigen, S XpbgholkIygadlsn26/24/2019 10:08 PM [facility]ITAL[facility]imen (Source)Anatomical Location / LateralityCollection Method / VolumeCollection TimeReceived TimeBlood (Blood, Venous)12/12/2018 5:58 PM CUSTODIAN SUPERVISOR 12/12/2018 7:59 PM CUSTODIAN SUPERVISOR Narrative Authorizing ProviderResult TypeResult StatusEliyoanna Yip APRN, C.N.P., D.N.P.LAB MICROBIOLOGY - BLOOD ORDERABLESFinal ResultPerforming Organization AddressCity/State/ZIP CodePhone Number [facility] [address] [place] [address] from Last 3 Months or Most Recently Relevant to Health Maintenance Additional Health Concerns InfectionOnset DateLast IndicatedProtective Gossoswvdfe52/14/202304/ Insurance Advance Directives For more information, please contact: [phone] TypeDate RecordedPatient RepresentativeExplanationAdvance Directive12/08/2024 9:32 AM* Natalya Martinez * Charles YOOA/ADVOCATE/AGENT/HAZARDOUS MATERIALS HANDLER/SURROGATE * Full Code (Latest Code Status on File) Date ActivatedDate YfwygwysrybDvlhesfe78/14/2025 6:10 PM11/03/2025 7:41 PM QuestionAnswerCommentsFull Code:* Discussed * Full Code Date ActivatedDate InactivatedComments07/02/2025 8:48 PM07/06/2025 5:08 PMQuestion AnswerCommentsFull Code:* Discussed * Full Code Date ActivatedDate InactivatedComments06/24/2025 3:03 PM06/27/2025 2:26 PMQuestion AnswerCommentsFull Code:* Discussed * Full Code Date ActivatedDate InactivatedComments06/12/2025 4:47 PM06/13/2025 7:27 PMQuestion AnswerCommentsFull Code:* Discussed * Full Code Date ActivatedDate InactivatedComments05/28/2025 3:47 PM05/29/2025 6:37 PMQuestion AnswerCommentsFull Code:* Discussed NameRelationshipHealthcare Agent RelationshipCommunicationBrenda FletcherMother Health Care Agent* Charles DeMannSignificant OtherFirst Alternate Health Care Agent* Care Teams Team MemberRelationshipSpecialtyStart DateEnd Date Elsewhere, Pcp PCP - GeneralInternal Dsfnuloy99/5/25
--- OUTSIDE RECORDS SUMMARY | 2025-11-05 03:25 | XMS_ITS | Encounter Summary ---
Author Organization [facility] Address [address] [place] [address] Care Team Providers Care Popcorn Attendant Name Role Phone Elsewhere, Pcp Primary Care Provider Unavailabl e Encounter Details DateTypeDepartmentCare Team (Latest Contact Info)Dwhjfgghtes46/12/2025Orders Only [facility] in [place], [place] [address] [place] [phone] Devi Roper, KARON, C.N.P., D.N.P. [address] [place] [address] Social History Tobacco UseTypesPacks/DayYears UsedDateSmoking Tobacco: NeverSmokeless [...] highest degree you have received?Some college, no gvjfgz4804/24/2019CommentsNoSex and Gender InformationValueDate RecordedSex Assigned at JwtziRhvsst25/07/2019 8:37 PM ELECTRONICS TEACHER Legal KjnPihhvr54/02/2017 2:43 PM CSTGender EtlisecrXinnvo83/07/2019 8:37 PM ELECTRONICS TEACHER Sexual OrientationChoose not to fcweykuz02/17/2021 3:46 PM CDTdocumented as of this encounter Plan of Treatment DateTypeDepartmentCare Team (Latest Contact Info)Wndehpxazdq44/29/2025 9:00 AM CSTOffice Visit Department of Obstetrics and Gynecology in [place], [place] [address] [place] [phone] Alice Linares M.D. [address] [place] [phone] 11/17/2025 11:00 AM CSTTelemedicine Department of Palliative Care in [place], [place] [address] [place] [address] Yary Landa D.O. [address] [place] [phone] 12/04/2025 1:30 PM CSTClinical Communication Virtual Review in [place], [place] [address] [place] [address] 12/07/2025 8:10 AM CSTLab Department of Laboratory Medicine and Pathology, [facility], in [place], [place] [address] [place] [phone] Jessica Rousseau M.B.B.S. [address] [place] [phone] 12/07/2025 9:15 AM CSTAppointment Outpatient Procedure Center in [place], [place] [address] [place] [phone] Jessica Rousseau M.B.B.S. [address] [place] [phone] 12/07/2025 11:00 AM CSTDiagnostic Division of Pulmonary Medicine in [place], [place] [address] [place] [phone] Jessica Rousseau M.B.B.S. [address] [place] [phone] 12/07/2025 1:00 PM CSTOffice Visit [facility] in [place], [place] [address] [place] [address] Jessica Rousseau M.B.B.S. [address] [place] [phone] 12/07/2025 1:30 PM CSTNurse Only [facility] Clinical [facility] in [place], [place] [address] [place] [phone] Jessica Rousseau M.B.B.S. [address] [place] [phone] 12/07/2025 2:00 PM CSTOffice Visit [facility] in [place], [place] [address] [place] [phone] Jessica Rousseau M.B.B.S. [address] [place] [phone] 12/07/2025 3:00 PM CSTOffice Visit Department of Palliative Care in [place], [place] [address] [place] [phone] Martine Pardo B.M.B.S., B.M., B.Ch. [address] [place] [phone] documented as of this encounter Visit Diagnoses Not on filedocumented in this encounter Additional Health Concerns InfectionOnset DateLast IndicatedResolved TimeProtective Inwfwbjxuwd38/14/2023 03/02/2023ssessmentNoted TimePHQ-9 Depression Total Score: 12007/08/2025 9:42 AM CDTdocumented as of this encounter Care Teams Team MemberRelationshipSpecialtyStart DateEnd Date Elsewhere, Pcp PCP - GeneralInternal Kngojrin47/5/25documented as of this encounter
--- OUTSIDE RECORDS SUMMARY | 2025-11-05 03:25 | XMS_ITS | Encounter Summary ---
Author Organization [facility] Address [address] [place] [address] Care Team Providers Care Printing Bindery Assistant Name Role Phone Elsewhere, Pcp Primary Care Provider Unavailabl e Encounter Details DateTypeDepartmentCare Team (Latest Contact Info)Talaucwryxp22/13/2025Clinical Communication [facility], Ninth Floor [address] [place] [address] Aishwarya Quintana, RKatalinaNKatalina Social History Tobacco UseTypesPacks/DayYears [...] RecordedIn the past 12 months has the [employer], gas, oil, or water [employer] threatened to shut off services in your home?No11/01/2025Postpartum DepressionAnswerDate RecordedPHQ-9 Total Score (max 27)Housing StabilityAnswerDate RecordedWhat is your living situation today?I have a steady place to live11/01/2025EducationAnswerDate RecordedWhat is the highest level of school you have completed or the highest degree you have received?Some college, no lelyey8404/24/2019CommentsNoSex and Gender InformationValueDate RecordedSex Assigned at RzizjMifbel42/07/2019 8:37 PM WINDING INSPECTOR Legal GwoGaebes11/02/2017 2:43 PM CSTGender CdececbjUyikyv15/07/2019 8:37 PM WINDING INSPECTOR Sexual OrientationChoose not to rhrokrjv66/17/2021 3:46 PM CDTdocumented as of this encounter Miscellaneous Notes * Telephone Encounter - Aishwarya Quintana R.N. - 10/31/2025 3:40 PM WINDING INSPECTOR Pt called regarding abdominal and back pain. Pt reported intermittent SOB for the past few days. Ptreported going to the [facility] yesterday and addressed the previously mentioned [...] after stopping the previously mentioned antibiotics. ING INSPECTOR documented in this encounter Plan of Treatment DateTypeDepartmentCare Team (Latest Contact Info)Dedszhfpita54/29/2025 9:00 AM CSTOffice Visit Department of Obstetrics and Gynecology in [address] [phone] Alice Linares M.D. [address] [place] [phone] 11/17/2025 11:00 AM CSTTelemedicine Department of Palliative Care in [address] [phone] Yary Landa D.O. [address] [place] [phone] 12/04/2025 1:30 PM CSTClinical Communication Virtual Review in [address] [phone] 12/07/2025 8:10 AM CSTLab Department of Laboratory Medicine and Pathology, [facility], in [address] [address] Jessica Rousseau M.B.B.S. [address] [place] [phone] 12/07/2025 9:15 AM CSTAppointment Outpatient Procedure Center in [place], [place] [address] [place] [address] Jessica Rousseau M.B.B.S. [address] [place] [phone] 12/07/2025 11:00 AM CSTDiagnostic Division of Pulmonary Medicine in [place], [place] [address] [place] [address] Jessica Rousseau M.B.B.S. [address] [place] [phone] 12/07/2025 1:00 PM CSTOffice Visit Pedro [facility] in [place], [place] [address] [place] [address] Jessica Rousseau M.B.B.S. [address] [place] [phone] 12/07/2025 1:30 PM CSTNurse Only [facility] in [place], [place] [address] [place] [address] Jessica Rousseau M.B.B.S. [address] [place] [phone] 12/07/2025 2:00 PM CSTOffice Visit [facility] in [place], [place] [address] [place] [address] Jessica Rousseau M.B.B.S. [address] [place] [phone] 12/07/2025 3:00 PM CSTOffice Visit Department of Palliative Care in [place], [place] [address] [place] [address] Martine Pardo B.M.B.S., B.M., B.Ch. [address] [place] [address] documented as of this encounter Visit Diagnoses Not on filedocumented in this encounter Additional Health Concerns InfectionOnset DateLast IndicatedResolved TimeProtective Ctfvfniktoa49/14/2023 03/02/2023ssessmentNoted TimePHQ-9 Depression Total Score: 9:42 AM CDTdocumented as of this encounter Care Teams Team MemberRelationshipSpecialtyStart DateEnd Date Elsewhere, Pcp PCP - GeneralInternal Ojwwacqe50/5/25documented as of this encounter
--- OUTSIDE RECORDS SUMMARY | 2025-11-05 03:26 | XMS_ITS | Encounter Summary ---
Author Organization [facility] Address [address] [place] [address] Care Team Providers Care Cupola Operator Name Role Phone Elsewhere, Pcp Primary Care Provider Unavailabl e Encounter Details DateTypeDepartmentCare Team (Latest Contact Info)Qjxqfbppwfs98/09/2025Orders Only [facility] in [place], [place] [address] [place] [address] Devi Roper, COMPUTER EQUIPMENT INSTALLER, C.N.P., D.N.P. [address] [place] [address] Social History Tobacco UseTypesPacks/DayYears UsedDateSmoking Tobacco: NeverSmokeless [...] before you got the money to buymore.Patient fsztcjot45/25/2025Within the past 12 months, the food you bought just didn't last and you didn't have money to get more.Patient jwzekzrv97/25/2025PRAPARE - TransportationAnswerDate RecordedIn the past 12 months, has lack of transportation kept you from medical appointments or from getting medications?No08/13/2025In the past 12 months, has lack of transportation kept you from meetings, work, or from getting things needed for daily living?No08/13/2025HC UtilitiesAnswerDate RecordedIn the past 12 months has the [employer], gas, oil, or water [employer] threatened to shut off services in your home?Patient /25/2025Postpartum DepressionAnswerDate RecordedPHQ- 9 Total Score (max 27)12007/08/2025Housing StabilityAnswerDate RecordedWhat is your living situation today?I have a steady place to live08/13/2025Education AnswerDate RecordedWhat is the highest level of school you have completed or the highest degree you have received?Some college, no mjmcoo0004/24/2019 CommentsNoSex and Gender InformationValueDate RecordedSex Assigned at Bnbcdi7512/26/2018 8:37 PM CSTLegal UelWvvjkw17/02/2017 2:43 PM CSTGender Identity Ppajsr7712/26/2018 8:37 PM CSTSexual OrientationChoose not to uxrbarzg39/17/2021 3:46 PM CDTdocumented as of this encounter Plan of Treatment DateTypeDepartmentCare Team (Latest Contact Info)Wvnkcwdwfkd36/29/2025 9:00 AM CSTOffice Visit Department of Obstetrics and Gynecology in [place], [place] [address] [place] [phone] Alice Linares M.D. [address] [place] [phone] 11/17/2025 11:00 AM CSTTelemedicine Department of Palliative Care in [place], [place] [address] [place] [phone] Yary Landa D.O. [address] [place] [phone] 12/04/2025 1:30 PM CSTClinical Communication Virtual Review in [place], [place] [address] [place] [address] 12/07/2025 8:10 AM CSTLab Department of Laboratory Medicine and Pathology, [facility], in [place], [place] [address] [place] [phone] Jessica Rousseau M.B.B.S. [address] [place] [phone] 12/07/2025 9:15 AM CSTAppointment Outpatient Procedure Center in [place], [place] [address] [place] [phone] Jessica Rousseau M.B.B.S. [address] [place] [phone] 12/07/2025 11:00 AM CSTDiagnostic Division of Pulmonary Medicine in [place], [place] [address] [place] [phone] Jessica Rousseau M.B.B.S. [address] [place] [phone] 12/07/2025 1:00 PM CSTOffice Visit [facility] in [place], [place] [address] [place] [address] Jessica Rousseau M.B.B.S. [address] [place] [phone] 12/07/2025 1:30 PM CSTNurse Only [facility] Trans[facility] Clinical [facility] in [place], [place] [address] [place] [phone] Jessica Rousseau M.B.B.S. [address] [place] [phone] 12/07/2025 2:00 PM CSTOffice Visit [facility] Clinical [facility] in [place], [place] [address] [place] [phone] Jessica Rousseau M.B.B.S. [address] [place] [phone] 12/07/2025 3:00 PM CSTOffice Visit Department of Palliative Care in [place], [place] [address] [place] [phone] Martine Pardo B.M.B.S., B.M., B.Ch. [address] [place] [phone] documented as of this encounter Visit Diagnoses Not on filedocumented in this encounter Additional Health Concerns InfectionOnset DateLast IndicatedResolved TimeProtective Grenzhpexig87/14/2023 03/02/2023ssessmentNoted TimePHQ-9 Depression Total Score: 12007/08/2025 9:42 AM CDTdocumented as of this encounter Care Teams Team MemberRelationshipSpecialtyStart DateEnd Date Elsewhere, Pcp PCP - GeneralInternal Pfqvnytl24/5/25documented as of this encounter
--- OUTSIDE RECORDS SUMMARY | 2025-11-05 03:26 | XMS_ITS | Encounter Summary ---
Author Organization [facility] Address [address] [place] [address] Care Team Providers Care Porcelain Enameler Name Role Phone Elsewhere, Pcp Primary Care Provider Unavailabl e Reason for Referral * Transplant (Routine) - AuthorizedSpecialtyDiagnoses / ProceduresReferred By ContactReferred To ContactTransplant Devi Roper APRN, C.N.P., D.N.P. [address] [place] [address] Phone: tel: fax: [facility] Referral IDStatusReasonStart DateExpiration DateVisits RequestedVisits [id number] Scheduling Instructions Please schedule with ANUPAM for 60 minutes., Per Julia Roper pt needs to be seen today. NING MACHINE TENDER Reason for Visit * ReasonOnset XwbxApiawndySbfhxogholpdi94/08/2025Sick Encounter Details DateTypeDepartmentCare Team (Latest Contact Info)Guijcetlwgt81/08/2025Clinical Communication [facility] in [place], [place] [address] [place] [address] Jessica Rousseau M.B.B.S. [address] [place] [address] Communication (Sick ) Social History Tobacco UseTypesPacks/DayYears [...] before you got the money to buymore.Patient ugqvcmny74/25/2025Within the past 12 months, the food you [...] to shut off services in your home?Patient izerqoeh10/25/2025Postpartum DepressionAnswerDate RecordedPHQ- 9 Total Score (max 27)12007/08/2025Housing StabilityAnswerDate RecordedWhat is your living situation today?I have a steady place to live08/13/2025Education AnswerDate RecordedWhat is the highest level of school you have completed or the highest degree you have received?Some college, no ckhdua4604/24/2019 CommentsNoSex and Gender InformationValueDate RecordedSex Assigned at Juodlk3012/26/2018 8:37 PM CSTLegal CwlElwyjj46/02/2017 2:43 PM CSTGender Identity Gszmbw0912/26/2018 8:37 PM CSTSexual OrientationChoose not to nyttnklw45/17/2021 3:46 PM CDTdocumented as of this encounter Plan of Treatment DateTypeDepartmentCare Team (Latest Contact Info)Lgciqjvfhin54/29/2025 9:00 AM CSTOffice Visit Department of Obstetrics and Gynecology in [address] [phone] Alice Linares M.D. [address] [place] [phone] 11/17/2025 11:00 AM CSTTelemedicine Department of Palliative Care in [address] [phone] Yary Landa D.O. [address] [place] [phone] 12/04/2025 1:30 PM CSTClinical Communication Virtual Review in [place], [place] 200 [place] [phone] 12/07/2025 8:10 AM CSTLab Department of Laboratory Medicine and Pathology, [facility], in [place], [place] [address] [place] [phone] Jessica Rousseau M.B.B.S. [address] [place] [phone] 12/07/2025 9:15 AM CSTAppointment Outpatient Procedure Center in [place], [place] [address] [place] [address] Jessica Rousseau M.B.B.S. [address] [place] [phone] 12/07/2025 11:00 AM CSTDiagnostic Division of Pulmonary Medicine in [place], [place] [address] [place] [address] Jessica Rousseau M.B.B.S. [address] [place] [phone] 12/07/2025 1:00 PM CSTOffice Visit [facility] in [place], [place] [address] [place] [address] Jessica Rousseau M.B.B.S. [address] [place] [phone] 12/07/2025 1:30 PM CSTNurse Only [facility] in [place], [place] [address] [place] [address] Jessica Rousseau M.B.B.S. [address] [place] [address] 12/07/2025 2:00 PM CSTOffice Visit [facility] in [place], [place] [address] [place] [address] Jessica Rousseau M.B.B.S. [address] [place] [phone] 12/07/2025 3:00 PM CSTOffice Visit Department of Palliative Care in [place], [place] [address] [place] [address] Martine Pardo B.M.BKatalinaS., BKatalinaM., B.Ch. [address] [place] [phone] NameTypePriorityAssociated DiagnosesOrder ScheduleTransplant Bone marrow office visit (clinic)Outpatient ReferralRoutineExpected: 10/26/2025 (Approximate), Expires: 01/24/2027documented as of this encounter Results * LD (Lactate Dehydrogenase) (10/26/2025 1:40 PM SPINNING MACHINE TENDER)ComponentValueRef RangeTest MethodAnalysis TimePerformed AtPathologist SignatureHospital Deanna QU316990 - 222 U/L112/27/2024 2:46 PM CSTDTLSpecimen (Source)Anatomical Location / LateralityCollection Method / VolumeCollection TimeReceived TimeBlood (Blood, Venous)10/26/2025 1:40 PM CST10/26/2025 2:19 PM SPINNING MACHINE TENDER Narrative Authorizing ProviderResult TypeResult StatusDevi Roper APRN, C.N.P., D.N.P.LAB BLOOD NON ADD-ONFinal ResultPerforming OrganizationAddress City/State/ZIP CodePhone Number [facility] 200 [place] [address], [facility] DTL [facility] 200 [place] [address] * Sodium (10/26/2025 1:40 PM SPINNING MACHINE TENDER)ComponentValueRef RangeTest MethodAnalysis Time Performed AtPathologist SignatureSodium, J585718 - 145 mmol/L112/27/2024 2:39 PM CSTDTLSpecimen (Source)Anatomical Location / LateralityCollection Method / VolumeCollection TimeReceived TimeBlood (Blood, Venous)10/26/2025 1:40 PM SPINNING MACHINE TENDER 10/26/2025 2:04 PM SPINNING MACHINE TENDER Narrative Authorizing ProviderResult TypeResult StatusDevi Roper APRN, C.N.P., D.N.P.LAB BLOOD ADD-ONFinal ResultPerforming OrganizationAddressCity/State/ZIP CodePhone Number [facility] 200 [place] [address], [facility] 200 [place] [address] * Potassium (10/26/2025 1:40 PM SPINNING MACHINE TENDER)ComponentValueRef RangeTest MethodAnalysis TimePerformed AtPathologist SignaturePotassium, S3.83.6 - 5.2 mmol/L112/27/2024 2:39 PM CSTDTLSpecimen (Source)Anatomical Location / LateralityCollection Method / VolumeCollection TimeReceived TimeBlood (Blood, Venous)10/26/2025 1:40 PM CST10/26/2025 2:04 PM SPINNING MACHINE TENDER Narrative Authorizing ProviderResult TypeResult StatusDevi Roper APRN, C.N.P., D.N.P.LAB BLOOD ADD-ONFinal ResultPerforming OrganizationAddressCity/State/ZIP CodePhone Number [facility] [address] [place] [address], [facility] 200 [place] [address] * Magnesium (10/26/2025 1:40 PM SPINNING MACHINE TENDER)ComponentValueRef RangeTest MethodAnalysis TimePerformed AtPathologist SignatureMagnesium, S2.11.7 - 2.3 mg/dL10/26/2025 2:39 PM CSTDTLSpecimen (Source)Anatomical Location / LateralityCollection Method / VolumeCollection TimeReceived TimeBlood (Blood, Venous)10/26/2025 1:40 PM CST10/26/2025 2:04 PM SPINNING MACHINE TENDER Narrative Authorizing ProviderResult TypeResult StatusDevi Roper APRN, C.N.P., D.N.P.LAB BLOOD ADD-ONFinal ResultPerforming OrganizationAddressCity/State/ZIP CodePhone Number [facility] [address] [place], [place] [address] [place] [address] * (ABNORMAL) Glucose, Fasting (10/26/2025 1:40 PM SPINNING MACHINE TENDER)ComponentValueRef Range Test MethodAnalysis TimePerformed AtPathologist SignatureGlucose, P155(H)70 - 100 mg/dL10/26/2025 3:45 PM CSTDTLLast Ikrfzv1io65/08/2025 2:04 PM CSTDTL Specimen (Source)Anatomical Location / LateralityCollection Method / Volume Collection TimeReceived TimeBlood (Blood, Venous)10/26/2025 1:40 PM SPINNING MACHINE TENDER 10/26/2025 2:04 PM SPINNING MACHINE TENDER Narrative Authorizing ProviderResult TypeResult StatusDevi Roper APRN, C.N.P., D.N.P.LAB BLOOD NON ADD-ONFinal ResultPerforming OrganizationAddress City/State/ZIP CodePhone Number [facility] [address] [place] [address], [facility] [address] [place] [address] * Creatinine with Estimated GFR (10/26/2025 1:40 PM SPINNING MACHINE TENDER)ComponentValueRef Range Test MethodAnalysis TimePerformed AtPathologist SignatureCreatinine0.700.59 - 1.04 mg/dL10/26/2025 2:39 PM CSTDTLEstimated GFR (eGFR)>90>=60 mL/min/BSA 10/26/2025 2:39 PM CSTDTLComment: Estimated GFR calculated using the 2020 CKD_EPI creatinine equation. Specimen (Source)Anatomical Location / LateralityCollection Method / Volume Collection TimeReceived TimeBlood (Blood, Venous)10/26/2025 1:40 PM SPINNING MACHINE TENDER 10/26/2025 2:04 PM SPINNING MACHINE TENDER Narrative Authorizing ProviderResult TypeResult StatusDevi Roper APRN, C.N.P., D.N.P.LAB BLOOD ADD-ONFinal ResultPerforming OrganizationAddressCity/State/ZIP CodePhone Number [facility] [address] [place] [address], [facility] [address] [place] [address] * (ABNORMAL) CBC no call back, reflex T/S HGB <8 (10/26/2025 1:40 PM SPINNING MACHINE TENDER) ComponentValueRef RangeTest MethodAnalysis TimePerformed AtPathologist BxsjempbeMxtpnraxky81.611.6 - 15.0 g/dL10/26/2025 2:19 PM JSRPSTIpwumwcgtq40.5 35.5 - 44.9 %10/26/2025 2:19 PM CSTDTLErythrocytes4.573.92 - 5.13 x10(12)/L 10/26/2025 2:19 PM GQGMFEUBP41.278.2 - 97.9 fL10/26/2025 2:19 PM CSTDTLRBC Distrib Width13.312.2 - 16.1 %10/26/2025 2:19 PM CSTDTLPlatelet Eblxl029310 - 371 x10(9)/L112/27/2024 2:19 PM CSTDTLLeukocytes4.13.4 - 9.6 x10(9)/L112/27/2024 2:19 PM CSTDTLNeutrophils2.571.56 - 6.45 x10(9)/L112/27/2024 2:19 PM CSTDHPM Lymphocytes0.89(L)0.95 - 3.07 x10(9)/L112/27/2024 2:19 PM CSTDTLMonocytes0.24 (L)0.26 - 0.81 x10(9)/L112/27/2024 2:19 PM CSTDTLEosinophils0.300.03 - 0.48 x10(9)/L112/27/2024 2:19 PM CSTDTLBasophils0.050.01 - 0.08 x10(9)/L112/27/2024 2:19 PM CSTDTLSpecimen (Source)Anatomical Location / LateralityCollection Method / VolumeCollection TimeReceived TimeBlood (Blood, Venous)10/26/2025 1:40 PM CST10/26/2025 2:05 PM SPINNING MACHINE TENDER Narrative Authorizing ProviderResult TypeResult StatusKimbermary Roper APRN, C.N.P., D.N.P.LAB BLOOD NON ADD-ONFinal ResultPerforming OrganizationAddress City/State/ZIP CodePhone Number [facility] [address] [place] [address], [place] DTL [facility] [address] [place] [address] [facility] [address] [place] [address] * Calcium, Total (10/26/2025 1:40 PM SPINNING MACHINE TENDER)ComponentValueRef RangeTest Method Analysis TimePerformed AtPathologist SignatureCalcium, Total, S9.68.6 - 10.0 mg/dL10/26/2025 2:39 PM CSTDTLSpecimen (Source)Anatomical Location / LateralityCollection Method / VolumeCollection TimeReceived TimeBlood (Blood, Venous)10/26/2025 1:40 PM CST10/26/2025 2:04 PM SPINNING MACHINE TENDER Narrative Authorizing ProviderResult TypeResult StatusDevi Roper APRN, C.N.P., D.N.P.LAB BLOOD ADD-ONFinal ResultPerforming OrganizationAddressCity/State/ZIP CodePhone Number [facility] [address] [place] [address], [address] [address] * BUN (Blood Urea Nitrogen) (10/26/2025 1:40 PM SPINNING MACHINE TENDER)ComponentValueRef RangeTest MethodAnalysis TimePerformed AtPathologist SignatureBUN (Blood Urea Nitrogen), S86 - 21 mg/dL10/26/2025 2:39 PM CSTDTLSpecimen (Source)Anatomical Location / LateralityCollection Method / VolumeCollection TimeReceived TimeBlood (Blood, Venous)10/26/2025 1:40 PM CST10/26/2025 2:04 PM SPINNING MACHINE TENDER Narrative Authorizing ProviderResult TypeResult StatusDevi Roper APRN, C.N.P., D.N.P.LAB BLOOD ADD-ONFinal ResultPerforming OrganizationAddressCity/State/ZIP CodePhone Number [facility] [address] [place] [address], [facility] [address] [place] [address] * Bilirubin, Total (10/26/2025 1:40 PM SPINNING MACHINE TENDER)ComponentValueRef RangeTest Method Analysis TimePerformed AtPathologist SignatureBilirubin, Total, P0.30.0 - 1.2 mg/dL10/26/2025 2:19 PM CSTMETHSpecimen (Source)Anatomical Location / LateralityCollection Method / VolumeCollection TimeReceived TimeBlood (Blood, Venous)10/26/2025 1:40 PM CST10/26/2025 1:55 PM SPINNING MACHINE TENDER Narrative Authorizing ProviderResult TypeResult StatusDevi Roper APRN C.N.P., D.N.P.LAB BLOOD ADD-ONFinal ResultPerforming OrganizationAddressCity/State/ZIP CodePhone Number [facility] [address] [place] [address] * (ABNORMAL) AST (Aspartate Aminotransferase) (10/26/2025 1:40 PM SPINNING MACHINE TENDER)Component ValueRef RangeTest MethodAnalysis TimePerformed AtPathologist Signature Aspartate Aminotransferase (AST), P46(H)8 - 43 U/L112/27/2024 2:19 PM CSTMETH Specimen (Source)Anatomical Location / LateralityCollection Method / Volume Collection TimeReceived TimeBlood (Blood, Venous)10/26/2025 1:40 PM SPINNING MACHINE TENDER 10/26/2025 1:55 PM SPINNING MACHINE TENDER Narrative Authorizing ProviderResult TypeResult StatusSatnam Foster APRN.N.P., D.N.P.LAB BLOOD ADD-ONFinal ResultPerforming OrganizationAddressCity/State/[place] [address] * (ABNORMAL) ALT (Alanine Aminotransferase) (10/26/2025 1:40 PM SPINNING MACHINE TENDER)Component ValueRef RangeTest MethodAnalysis TimePerformed AtPathologist SignatureAlanine Aminotransferase (ALT), S61(H)7 - 45 U/L112/27/2024 2:39 PM CSTDTLSpecimen (Source)Anatomical Location / LateralityCollection Method / VolumeCollection TimeReceived TimeBlood (Blood, Venous)10/26/2025 1:40 PM CST10/26/2025 2:04 PM SPINNING MACHINE TENDER Narrative Authorizing ProviderResult TypeResult StatusDevi Roper APRN C.N.P., D.N.P.LAB BLOOD ADD-ONFinal ResultPerforming OrganizationAddressCity/State/ZIP CodePhone Number [address] [place], [place] [address] [address] [place] [address] * Alkaline Phosphatase (10/26/2025 1:40 PM SPINNING MACHINE TENDER)ComponentValueRef RangeTest MethodAnalysis TimePerformed AtPathologist SignatureAlkaline Phosphatase, S101 35 - 104 U/L112/27/2024 2:39 PM CSTDTLSpecimen (Source)Anatomical Location / LateralityCollection Method / VolumeCollection TimeReceived TimeBlood (Blood, Venous)10/26/2025 1:40 PM CST10/26/2025 2:04 PM SPINNING MACHINE TENDER Narrative Authorizing ProviderResult TypeResult StatusDevi Roper APRN, C.N.P., D.N.P.LAB BLOOD ADD-ONFinal ResultPerforming OrganizationAddressCity/State/ZIP CodePhone Number [place] [phone] [address] [place] [address] * Albumin (10/26/2025 1:40 PM SPINNING MACHINE TENDER)ComponentValueRef RangeTest MethodAnalysis TimePerformed AtPathologist SignatureAlbumin, S4.53.5 - 5.0 g/dL10/26/2025 2:39 PM CSTDTLSpecimen (Source)Anatomical Location / LateralityCollection Method / VolumeCollection TimeReceived TimeBlood (Blood, Venous)10/26/2025 1:40 PM CST10/26/2025 2:04 PM SPINNING MACHINE TENDER Narrative Authorizing ProviderResult TypeResult StatusDevi Roper APRN, C.N.P., D.N.P.LAB BLOOD ADD-ONFinal ResultPerforming OrganizationAddressCity/State/[place] [address], [place] [address] documented in this encounter Visit Diagnoses Diagnosis 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
--- OUTSIDE RECORDS SUMMARY | 2025-11-05 03:26 | XMS_ITS | Encounter Summary ---
Author Organization [facility] Address [address] [place] [address] Care Team Providers Care Major Account Representative Name Role Phone Elsewhere, Pcp Primary Care Provider Unavailabl e Encounter Details DateTypeDepartmentCare Team (Latest Contact Info)Cfeshsgotqk98/08/2025linical Communication Pedro Fatima [place] [facility]eneration in [place], [place] [address] [place] [address] Jessica Rousseau M.B.B.S. [address] [place] [address] Social History Tobacco UseTypesPacks/DayYears UsedDateSmoking Tobacco: NeverSmokeless [...] before you got the money to buymore.Patient ooennyty10/25/2025Within the past 12 months, the food you [...] RecordedIn the past 12 months has the [employer] gas, oil, or water mywaves threatened to shut off services in your home?Patient qbtaqxkt94/25/2025Postpartum DepressionAnswerDate RecordedPHQ- 9 Total Score (max 27)12007/08/2025Housing StabilityAnswerDate RecordedWhat is your living situation today?I have a steady place to live08/13/2025Education AnswerDate RecordedWhat is the highest level of school you have completed or the highest degree you have received?Some college, no rytkkm3204/24/2019 CommentsNoSex and Gender InformationValueDate RecordedSex Assigned at Dgytfi0112/26/2018 8:37 PM CSTLegal BinXcjlgv03/02/2017 2:43 PM CSTGender Identity Autgop2012/26/2018 8:37 PM CSTSexual OrientationChoose not to szwwqosh16/17/2021 3:46 PM CDTdocumented as of this encounter Plan of Treatment DateTypeDepartmentCare Team (Latest Contact Info)Zcmbvmhyorl81/29/2025 9:00 AM CSTOffice Visit Department of Obstetrics and Gynecology in [place], [place] [address] [place] [phone] Alice Linares M.D. [address] [place] [phone] 11/17/2025 11:00 AM CSTTelemedicine Department of Palliative Care in [place], [place] [address] [place] [phone] Yary Landa D.O. [address] [place] [phone] 12/04/2025 1:30 PM CSTClinical Communication Virtual Review in [place], [place] 200 [place] [address] 12/07/2025 8:10 AM CSTLab Department of Laboratory Medicine and Pathology, [facility], in [place], [place] [address] [place] [phone] Jessica Rousseau M.B.B.S. [address] [place] [phone] 12/07/2025 9:15 AM CSTAppointment Outpatient Procedure Center in [place], [place] [address] [place] [phone] Jessica Rousseau M.B.B.S. [address] [place] [phone] 12/07/2025 11:00 AM CSTDiagnostic Division of Pulmonary Medicine in [place], [place] [address] [place] [phone] Jessica Rousseau M.B.B.S. [address] [place] [phone] 12/07/2025 1:00 PM CSTOffice Visit [facility] in [place], [place] [address] [place] [phone] Jessica Rousseau M.B.B.S. [address] [place] [phone] 12/07/2025 1:30 PM CSTNurse Only [facility] Transplantation and Clinical Regeneration in [place], [place] [address] [place] [phone] Jessica Rousseau M.B.B.S. [address] [place] [phone] 12/07/2025 2:00 PM CSTOffice Visit [facility] Transplantation and Clinical Regeneration in [place], [place] [address] [place] [phone] Jessica Rousseau M.B.B.S. [address] [place] [phone] 12/07/2025 3:00 PM CSTOffice Visit Department of Palliative Care in [place], [place] [address] [place] [phone] Martine Pardo B.M.B.S., B.M., B.Ch. [address] [place] [phone] documented as of this encounter Visit Diagnoses Not on filedocumented in this encounter Additional Health Concerns InfectionOnset DateLast IndicatedResolved TimeProtective Delktmvebfo47/14/2023 03/02/2023ssessmentNoted TimePHQ-9 Depression Total Score: 9:42 AM CDTdocumented as of this encounter Care Teams Team MemberRelationshipSpecialtyStart DateEnd Date Elsewhere, Pcp PCP - GeneralInternal Uqmsveri76/5/25documented as of this encounter
--- OUTSIDE RECORDS SUMMARY | 2025-11-05 03:26 | XMS_ITS | Encounter Summary ---
Author Organization [facility] Address [address] [place] [address] Care Team Providers Care Playground Worker Name Role Phone Elsewhere, Pcp Primary Care Provider Unavailabl e Reason for Visit * ReasonOnset ZupzEvaurdpuVxetwrldikybh21/11/2025Having a hard time with all her symptoms Encounter Details DateTypeDepartmentCare Team (Latest Contact Info)Ypahbwmryvq79/11/2025linical Communication Pedro Nazario [facility] for Transplantation and Clinical Regeneration in [place], [place] [address] [place] [address] Jessica Rousseau M.B.B.S. [address] [place] [address] Communication (Having a hard time with all [...] RecordedIn the past 12 months has the [employer], gas, oil, or water [employer] threatened to shut off services in your home?No11/01/2025Postpartum DepressionAnswerDate RecordedPHQ-9 Total Score (max 27)12007/08/2025Housing StabilityAnswerDate RecordedWhat is your living situation today?I have a steady place to live11/01/2025EducationAnswerDate RecordedWhat is the highest level of school you have completed or the highest degree you have received?Some college, no tjqrex1704/24/2019CommentsNoSex and Gender InformationValueDate RecordedSex Assigned at WbajqIxumqq53/07/2019 8:37 PM COM WRITER Legal HceFgqdyn98/02/2017 2:43 PM CSTGender JplfwcwvSavahk42/07/2019 8:37 PM COM WRITER Sexual OrientationChoose not to xmxaunrd55/17/2021 3:46 PM CDTdocumented as of this encounter Plan of Treatment DateTypeDepartmentCare Team (Latest Contact Info)Dgvkazruxdl17/29/2025 9:00 AM CSTOffice Visit Department of Obstetrics and Gynecology in [place], [place] [address] [place] [phone] Alice Linares M.D. [address] [place] [phone] 11/17/2025 11:00 AM CSTTelemedicine Department of Palliative Care in [place], [place] [address] [place] [phone] Yary Landa D.O. [address] [place] [phone] 12/04/2025 1:30 PM CSTClinical Communication Virtual Review in [place], [place] 200 [place] [address] 12/07/2025 8:10 AM CSTLab Department of Laboratory Medicine and Pathology, [facility] in [place], [place] [address] [place] [phone] Jessica Rousseau M.B.B.S. [address] [place] [phone] 12/07/2025 9:15 AM CSTAppointment Outpatient Procedure Center in [place], [place] [address] [place] [phone] Jessica Rousseau M.B.B.S. [address] [place] [phone] 12/07/2025 11:00 AM CSTDiagnostic Division of Pulmonary Medicine in [address] [address] Jessica Rousseau M.B.B.S. [address] [place] [phone] 12/07/2025 1:00 PM CSTOffice Visit [facility] Transplantation and Clinical Regeneration in [place], [place] [address] [place] [phone] Jessica Rousseau M.B.B.S. [address] [place] [phone] 12/07/2025 1:30 PM CSTNurse Only [facility] Transplantation and Clinical Regeneration in [place], [place] [address] [place] [address] Jessica Rousseau M.B.B.S. [address] [place] [phone] 12/07/2025 2:00 PM CSTOffice Visit [facility] Transplantation and Clinical Regeneration in [place], [place] [address] [place] [address] Jessica Rousseau M.B.B.S. [address] [place] [phone] 12/07/2025 3:00 PM CSTOffice Visit Department of Palliative Care in [place], [place] [address] [place] [phone] Martine Pardo B.M.B.S., B.M., B.Ch. [address] [place] [phone] documented as of this encounter Visit Diagnoses Not on filedocumented in this encounter Additional Health Concerns InfectionOnset DateLast IndicatedResolved TimeProtective Ziycakswfuk59/14/2023 03/02/2023ssessmentNoted TimePHQ-9 Depression Total Score: 12007/08/2025 9:42 AM CDTdocumented as of this encounter Care Teams Team MemberRelationshipSpecialtyStart DateEnd Date Elsewhere, Pcp PCP - GeneralInternal Mzmhnjax80/5/25documented as of this encounter
--- OUTSIDE RECORDS SUMMARY | 2025-11-05 03:26 | XMS_ITS | Encounter Summary ---
Author Organization [facility] Address [address] [place] [address] Care Team Providers Care Hunter Skin Diver Name Role Phone Elsewhere, Pcp Primary Care Provider Unavailabl e Reason for Visit * ReasonOnset DateCommentsPrescreen Immunization Zfqriw5209/28/2025 Encounter Details DateTypeDepartmentCare Team (Latest Contact Info)Zfbsxizefin20/10/2025linical Communication Section of Infectious Diseases in [place], [place] [address] [place] [address] David Alvarado RFritz [address] [place] [address] Prescreen Immunization Review Social History Tobacco UseTypesPacks/DayYears [...] RecordedIn the past 12 months has the [employer], gas, oil, or water [employer] threatened to shut off services in your home?Patient rdpeymve89/25/2025Postpartum DepressionAnswerDate RecordedPHQ- 9 Total Score (max 27)12007/08/2025Housing StabilityAnswerDate RecordedWhat is your living situation today?I have a steady place to live08/13/2025Education AnswerDate RecordedWhat is the highest level of school you have completed or the highest degree you have received?Some college, no camcwr9504/24/2019 CommentsNoSex and Gender InformationValueDate RecordedSex Assigned at Ylkhpl9112/26/2018 8:37 PM CSTLegal UxfAhenko97/02/2017 2:43 PM CSTGender Identity Xastca3112/26/2018 8:37 PM CSTSexual OrientationChoose not to pdstopto33/17/2021 3:46 PM CDTdocumented as of this encounter [...] Orders: Can order via Protocol Additional 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 [address] [place] [phone] 11/17/2025 11:00 AM CSTTelemedicine Department of Palliative Care in [address] [phone] Yary Landa D.O. [address] [place] [phone] 12/04/2025 1:30 PM CSTClinical Communication Virtual Review in [address] [phone] 12/07/2025 8:10 AM CSTLab Department of Laboratory Medicine and Pathology, [facility], in [place], [place] [address] [place] [phone] Jessica Rousseau M.B.B.S. [address] [place] [phone] 12/07/2025 9:15 AM CSTAppointment Outpatient Procedure Center in [address] [phone] Jessica Rousseau M.B.B.S. [address] [place] [phone] 12/07/2025 11:00 AM CSTDiagnostic Division of Pulmonary Medicine in [place], [place] [address] [place] [address] Jessica Rousseau M.B.B.S. [address] [place] [phone] 12/07/2025 1:00 PM CSTOffice Visit [facility] for Transplantation and Clinical Regeneration in [place], [place] [address] [place] [address] Jessica Rousseau M.B.B.S. [address] [place] [phone] 12/07/2025 1:30 PM CSTNurse Only [facility] for Transplantation and Clinical Regeneration in [place], [place] [address] [place] [address] Jessica Rousseau M.B.B.S. [address] [place] [phone] 12/07/2025 2:00 PM CSTOffice Visit [facility] for Transplantation and Clinical Regeneration in [place], [place] [address] [place] [address] Jessica Rousseau M.B.B.S. [address] [place] [phone] 12/07/2025 3:00 PM CSTOffice Visit Department of Palliative Care in [place], [place] [address] [place] [address] Martine Pardo B.M.B.S., B.M., B.Ch. [address] [place] [phone] documented as of this encounter Visit Diagnoses Not on filedocumented in this encounter Additional Health Concerns InfectionOnset DateLast IndicatedResolved TimeProtective Sbkjqoxftiu92/14/2023 03/02/2023ssessmentNoted TimePHQ-9 Depression Total Score: 12007/08/2025 9:42 AM CDTdocumented as of this encounter Care Teams Team MemberRelationshipSpecialtyStart DateEnd Date Elsewhere, Pcp PCP - GeneralInternal Hsuoxlak63/5/25documented as of this encounter
--- OUTSIDE RECORDS SUMMARY | 2025-11-05 03:26 | XMS_ITS | Encounter Summary ---
Author Organization [facility] Address [address] [place] [address] Care Team Providers Care Rotary Dryer Operator Name Role Phone Elsewhere, Pcp Primary Care Provider Unavailabl e Reason for Referral * SpecialtyDiagnoses / ProceduresReferred By ContactReferred To Contact Diagnoses Transplant Bone Marrow Allogeneic (HCC) RST [facility] [address] [place] [address] Phone: tel: [facility] Referral IDStatusReasonStart DateExpiration DateVisits RequestedVisits Authorized PULLER Encounter Details DateTypeDepartmentCare Team (Latest Contact Info)Txwqusebzud32/08/2025Orders Only [facility], Ninth Floor [address] [place] [address] Aida Lara R.N. Transplant Bone [...] before you got the money to buymore.Patient azrvqplz82/25/2025Within the past 12 months, the food you bought just didn't last and you didn't have money to get more.Patient lnmyzweb39/25/2025PRAPARE - TransportationAnswerDate RecordedIn the past 12 months, has lack of transportation kept you from medical appointments or from getting medications?No08/13/2025In the past 12 months, has lack of transportation kept you from meetings, work, or from getting things needed for daily living?No08/13/2025HC UtilitiesAnswerDate RecordedIn the past 12 months has the [employer], [employer], oil, or water [employer] threatened to shut off services in your home?Patient unnruywm29/25/2025Postpartum DepressionAnswerDate RecordedPHQ- 9 Total Score (max 27)12007/08/2025Housing StabilityAnswerDate RecordedWhat is your living situation today?I have a steady place to live08/13/2025Education AnswerDate RecordedWhat is the highest level of school you have completed or the highest degree you have received?Some college, no rjzjrj1004/24/2019 CommentsNoSex and Gender InformationValueDate RecordedSex Assigned at Jsjsst4012/26/2018 8:37 PM CSTLegal ScfTftqjr65/02/2017 2:43 PM CSTGender Identity Utsnat8212/26/2018 8:37 PM CSTSexual OrientationChoose not to zzhystey25/17/2021 3:46 PM CDTdocumented as of this encounter Plan of Treatment DateTypeDepartmentCare Team (Latest Contact Info)Wpcfnbrloam76/29/2025 9:00 AM CSTOffice Visit Department of Obstetrics and Gynecology in [place], [place] [address] [place] [phone] Alice Linares M.D. [address] [place] [phone] 11/17/2025 11:00 AM CSTTelemedicine Department of Palliative Care in [address] [phone] Yary Landa D.O. [address] [place] [phone] 12/04/2025 1:30 PM CSTClinical Communication Virtual Review in [place], [place] 200 [place] [phone] 12/07/2025 8:10 AM CSTLab Department of Laboratory Medicine and Pathology, [facility], in [place], [place] [address] [place] [phone] Jessica Rousseau M.B.B.S. [address] [place] [phone] 12/07/2025 9:15 AM CSTAppointment Outpatient Procedure Center in [address] [phone] Jessica Rousseau M.B.B.S. [address] [place] [phone] 12/07/2025 11:00 AM CSTDiagnostic Division of Pulmonary Medicine in [place], [place] [address] [place] [address] [place] [address] Jessica Rousseau M.B.B.S. [address] [place] [phone] 12/07/2025 1:00 PM CSTOffice Visit [facility] Transplantation and Clinical Regeneration in [place], [place] [address] [place] [address] Jessica Rousseau M.B.B.S. [address] [place] [phone] 12/07/2025 1:30 PM CSTNurse Only [facility] Transplantation and Clinical Regeneration in [place], [place] [address] [place] [phone] Jessica Rousseau M.B.B.S. [address] [place] [phone] 12/07/2025 2:00 PM CSTOffice Visit [facility] Transplantation and Clinical Regeneration in [place], [place] [address] [place] [address] Jessica Rousseau M.B.B.S. [address] [place] [phone] 12/07/2025 3:00 PM CSTOffice Visit Department of Palliative Care in [place], [place] [address] [place] [phone] Martine Pardo B.M.B.S., B.M., B.Ch. [address] [place] [phone] NameTypePriorityAssociated DiagnosesOrder ScheduleHydration Infusion Therapy; Outpatient ReferralRoutine Transplant Bone Marrow Allogeneic (HCC) Expected: 10/26/2025, Expires: 01/24/2027documented as of this encounter Visit Diagnoses Diagnosis Transplant Bone Marrow Allogeneic (HCC)- Primary documented in this encounter Additional Health Concerns InfectionOnset DateLast IndicatedResolved TimeProtective Pqwionrelkt00/14/2023 03/02/2023ssessmentNoted TimePHQ-9 Depression Total Score: 12007/08/2025 9:42 AM CDTdocumented as of this encounter Care Teams Team MemberRelationshipSpecialtyStart DateEnd Date Elsewhere, Pcp PCP - GeneralInternal Yfrvlpjf52/5/25documented as of this encounter
--- OUTSIDE RECORDS SUMMARY | 2025-11-05 03:26 | XMS_ITS | Encounter Summary ---
Author Organization [facility] Address [address] [place] [address] Care Team Providers Care Cio Name Role Phone Renzo Andres M.D. Primary Care Provider [phone] Reason for Visit * ReasonOnset DateCommentsMed Anstcl0910/12/2025 Encounter Details DateTypeDepartmentCare Team (Latest Contact Info)Gmptbnaaowb37/23/2025Refill Department of Palliative Care in [place], [place] [address] [place] [address] Felicia Watt, KARON, C.N.P., M.S.N. [address] [place] [address] Med Refill Social History Tobacco UseTypesPacks/DayYears UsedDateSmoking [...] before you got the money to buymore.Patient wngqbeuy07/25/2025Within the past 12 months, the food you bought just didn't last and you didn't have money to get more.Patient esitwbyu93/25/2025PRAPARE - TransportationAnswerDate RecordedIn the past 12 months, has lack of transportation kept you from medical appointments or from getting medications?No08/13/2025In the past 12 months, has lack of transportation kept you from meetings, work, or from getting things needed for daily living?No08/13/2025HC UtilitiesAnswerDate RecordedIn the past 12 months has the [employer], gas, oil, or water [employer] threatened to shut off services in your home?Patient /25/2025Postpartum DepressionAnswerDate RecordedPHQ- 9 Total Score (max 27)12007/08/2025Housing StabilityAnswerDate RecordedWhat is your living situation today?I have a steady place to live08/13/2025Education AnswerDate RecordedWhat is the highest level of school you have completed or the highest degree you have received?Some college, no tmouyy1404/24/2019 CommentsNoSex and Gender InformationValueDate RecordedSex Assigned at Hkrtpj8112/26/2018 8:37 PM CSTLegal NmkHsdwqw53/02/2017 2:43 PM CSTGender Identity Zaeljn6812/26/2018 8:37 PM CSTSexual OrientationChoose not to mwrabzsb73/17/2021 3:46 PM CDTdocumented as of this encounter Miscellaneous Notes * Telephone Encounter - Yuni Stockmo, Mallory E, R.N., [facility] - 10/12/2025 11:46 AM CST Prescription Refill Request Current Prescription Regimen: Buprenorphine 5 mcg/hr patch one patch per week. Last strength/amount/date filled: Buprenorphine 5 mcg/hr, #4 filled 09/05/25 [place] [employer] reviewed Prescription/amount provided today: Buprenorphine 5 mcg/hr, #4 Prescription will be e-Prescribed to the following pharmacy: [facility] [place] [place] Last appointment was in person office visit on 08/11/25 Last in-office visit if different than above: n/a Next palliative appointment is in person office visit on october Prescription was authorized by Dr. Adore Calero ET RIPPER ET RIPPER documented in this encounter Plan of Treatment DateTypeDepartmentCare Team (Latest Contact Info)Sdgkyshyhlo43/29/2025 9:00 AM CSTOffice Visit Department of Obstetrics and Gynecology in [place], [place] [address] [place] [phone] Alice Linares M.D. [address] [place] [phone] 11/17/2025 11:00 AM CSTTelemedicine Department of Palliative Care in [place], [place] [address] [place] [phone] Yary Landa D.O. [address] [place] [phone] 12/04/2025 1:30 PM CSTClinical Communication Virtual Review in [place], [place] 200 [place] [address] 12/07/2025 8:10 AM CSTLab Department of Laboratory Medicine and Pathology, [facility], in [place], [place] [address] [place] [address] Jessica Rousseau M.B.B.S. [address] [place] [phone] 12/07/2025 9:15 AM CSTAppointment Outpatient Procedure Center in [place], [place] [address] [place] [phone] Jessica Rousseau M.B.B.S. [address] [place] [phone] 12/07/2025 11:00 AM CSTDiagnostic Division of Pulmonary Medicine in [place], [place] [address] [place] [address] Jessica Rousseau M.B.B.S. [address] [place] [phone] 12/07/2025 1:00 PM CSTOffice Visit [facility] for Trans[facility] and Clinical Regeneration in [place], [place] [address] [place] [address] Jessica Rousseau M.B.B.S. [address] [place] [phone] 12/07/2025 1:30 PM CSTNurse Only [facility] for Transplantation and Clinical Regeneration in [place], [place] [address] [place] [address] Jessica Rousseau M.B.B.S. [address] [place] [phone] 12/07/2025 2:00 PM CSTOffice Visit [facility] for Transplantation and Clinical Regeneration in [place], [place] [address] [place] [address] Jessica Rousseau M.B.B.S. [address] [place] [phone] 12/07/2025 3:00 PM CSTOffice Visit Department of Palliative Care in [place], [place] [address] [place] [phone] Martine Pardo B.MKatalinaB.S., B.M., B.Ch. [address] [place] [phone] documented as of this encounter Visit Diagnoses Not on filedocumented in this encounter Additional Health Concerns InfectionOnset DateLast IndicatedResolved TimeProtective Jqtwfvscmio40/14/2023 03/02/2023ssessmentNoted TimePHQ-9 Depression Total Score: 12007/08/2025 9:42 AM CDTdocumented as of this encounter Care Teams Team MemberRelationshipSpecialtyStart DateEnd Date Renzo Andres M.D. [address] [place] [phone] PCP - GeneralFamily Medicine05/2312/4/25documented as of this encounter
--- OUTSIDE RECORDS SUMMARY | 2025-11-05 03:26 | XMS_ITS | Encounter Summary ---
Author Organization [facility] Address [address] [place] [address] Care Team Providers Care Bottling Equipment Sales Representative Name Role Phone Elsewhere, Pcp Primary Care Provider Unavailabl e Reason for Visit * ReasonOnset LxfgUydmckalEufcjoy16/05/2025[facility] Management Encounter Details DateTypeDepartmentCare Team (Latest Contact Info)Khfjbpshltj89/05/2025linical Communication Department of Family Medicine, [facility], in [place] [address] [place] [address] Gabby De Anda, RKatalinaN. Quality ([facility] Management/) Social History Tobacco UseTypesPacks/DayYears UsedDateSmoking Tobacco: [...] before you got the money to buymore.Patient bhmyrqdp45/25/2025Within the past 12 months, the food you bought just didn't last and you didn't have money to get more.Patient loytwjxy76/25/2025PRAPARE - TransportationAnswerDate RecordedIn the past 12 months, has lack of transportation kept you from medical appointments or from getting medications?No08/13/2025In the past 12 months, has lack of transportation kept you from meetings, work, or from getting things needed for daily living?No08/13/2025HC UtilitiesAnswerDate RecordedIn the past 12 months has the [employer], gas, oil, or water [employer]) threatened to shut off services in your home?Patient mmmofvem67/25/2025Postpartum DepressionAnswerDate RecordedPHQ- 9 Total Score (max 27)12007/08/2025Housing StabilityAnswerDate RecordedWhat is your living situation today?I have a steady place to live08/13/2025Education AnswerDate RecordedWhat is the highest level of school you have completed or the highest degree you have received?Some college, no hcsuwh5504/24/2019 CommentsNoSex and Gender InformationValueDate RecordedSex Assigned at Erxxxi8612/26/2018 8:37 PM CSTLegal XitZaqvmo92/02/2017 2:43 PM CSTGender Identity Enlgfo2812/26/2018 8:37 PM CSTSexual OrientationChoose not to fqmszveb61/17/2021 3:46 PM CDTdocumented as of this encounter Plan of Treatment DateTypeDepartmentCare Team (Latest Contact Info)Tjjvrkzhvxh05/29/2025 9:00 AM CSTOffice Visit Department of Obstetrics and Gynecology in [place], [place] [address] [place] [phone] Alice Linares M.D. [address] [place] [phone] 11/17/2025 11:00 AM CSTTelemedicine Department of Palliative Care in [place], [place] [address] [place] [phone] Yary Landa D.O. [address] [place] [phone] 12/04/2025 1:30 PM CSTClinical Communication Virtual Review in [place], [place] 200 [place] [address] 12/07/2025 8:10 AM CSTLab Department of Laboratory Medicine and Pathology, [facility], in [place], [place] [address] [place] [phone] Jessica Rousseau M.B.B.S. [address] [place] [phone] 12/07/2025 9:15 AM CSTAppointment Outpatient Procedure Center in [place], [place] [address] [place] [phone] Jessica Rousseau M.B.B.S. [address] [place] [phone] 12/07/2025 11:00 AM CSTDiagnostic Division of Pulmonary Medicine in [place], [place] [address] [place] [phone] Jessica Rousseau M.B.B.S. [address] [place] [phone] 12/07/2025 1:00 PM CSTOffice Visit [facility] in [place], [place] [address] [place] [phone] Jessica Rousseau M.B.B.S. [address] [place] [phone] 12/07/2025 1:30 PM CSTNurse Only [facility] Transplantation and Clinical Regeneration in [place], [place] [address] [place] [phone] Jessica Rousseau M.B.B.S. [address] [place] [phone] 12/07/2025 2:00 PM CSTOffice Visit [facility] Transplantation and Clinical Regeneration in [place], [place] [address] [place] [phone] Jessica Rousseau M.B.B.S. [address] [place] [phone] 12/07/2025 3:00 PM CSTOffice Visit Department of Palliative Care in [place], [place] [address] [place] [phone] Martine Pardo B.M.B.S., B.M., B.Ch. [address] [place] [phone] documented as of this encounter Visit Diagnoses Not on filedocumented in this encounter Additional Health Concerns InfectionOnset DateLast IndicatedResolved TimeProtective Ebocuyfihoe30/14/2023 03/02/2023ssessmentNoted TimePHQ-9 Depression Total Score: 9:42 AM CDTdocumented as of this encounter Care Teams Team MemberRelationshipSpecialtyStart DateEnd Date Elsewhere, Pcp PCP - GeneralInternal Ccnoxkxs28/5/25documented as of this encounter
--- OUTSIDE RECORDS SUMMARY | 2025-11-05 03:26 | XMS_ITS | Encounter Summary ---
Author Organization [facility] Address [address] [place] [address] Care Team Providers Care Film Inspector Name Role Phone Renzo Andres M.D. Primary Care Provider [phone] Encounter Details DateTypeDepartmentCare Team (Latest Contact Info)Sjgnawenmzz52/12/2025Orders Only [facility], [facility], Ninth Floor [address] [place] [address] Analia Carter, PEOPLESOFT PROGRAMMER, C.N.P. [address] [place] [address] Social History Tobacco UseTypesPacks/DayYears UsedDateSmoking Tobacco: NeverSmokeless [...] before you got the money to buymore.Patient pntvkuhf02/25/2025Within the past 12 months, the food you bought just didn't last and you didn't have money to get more.Patient xxejiiqz50/25/2025PRAPARE - TransportationAnswerDate RecordedIn the past 12 months, has lack of transportation kept you from medical appointments or from getting medications?No08/13/2025In the past 12 months, has lack of transportation kept you from meetings, work, or from getting things needed for daily living?No08/13/2025HC UtilitiesAnswerDate RecordedIn the past 12 months has the electric, gas, oil, or water company threatened to shut off services in your home?Patient zypomkxs78/25/2025Postpartum DepressionAnswerDate RecordedPHQ- 9 Total Score (max 27)12007/08/2025Housing StabilityAnswerDate RecordedWhat is your living situation today?I have a steady place to live08/13/2025Education AnswerDate RecordedWhat is the highest level of school you have completed or the highest degree you have received?Some college, no hmmspc7904/24/2019 CommentsNoSex and Gender InformationValueDate RecordedSex Assigned at Vtzhwy1012/26/2018 8:37 PM CSTLegal RnnGvhpeq64/02/2017 2:43 PM CSTGender Identity Pvejiz2412/26/2018 8:37 PM CSTSexual OrientationChoose not to utelbtih00/17/2021 3:46 PM CDTdocumented as of this encounter Plan of Treatment DateTypeDepartmentCare Team (Latest Contact Info)Qxyjeyzbhws20/29/2025 9:00 AM CSTOffice Visit Department of Obstetrics and Gynecology in [place], [place] [address] [place] [phone] Alice Linares M.D. [address] [place] [phone] 11/17/2025 11:00 AM CSTTelemedicine Department of Palliative Care in [place], [place] [address] [place] [phone] Yary Landa D.O. [address] [place] [phone] 12/04/2025 1:30 PM CSTClinical Communication Virtual Review in [place], [place] 200 [place] [address] 12/07/2025 8:10 AM CSTLab Department of Laboratory Medicine and Pathology, [facility] in [place], [place] [address] [place] [phone] Jessica Rousseau M.B.B.S. [address] [place] [phone] 12/07/2025 9:15 AM CSTAppointment Outpatient Procedure Center in [place], [place] [address] [place] [phone] Jessica Rousseau M.B.B.S. [address] [place] [phone] 12/07/2025 11:00 AM CSTDiagnostic Division of Pulmonary Medicine in [place], [place] [address] [place] [phone] Jessica Rousseau M.B.B.S. [address] [place] [phone] 12/07/2025 1:00 PM CSTOffice Visit Pedro [facility] Transplantation and Clinical Regeneration in [place], [place] [address] [place] [phone] Jessica Rousseau M.B.B.S. [address] [place] [phone] 12/07/2025 1:30 PM CSTNurse Only [facility] Transplantation and Clinical Regeneration in [place], [place] [address] [place] [phone] Jessica Rousseau M.B.B.S. [address] [place] [phone] 12/07/2025 2:00 PM CSTOffice Visit [facility] Transplantation and Clinical Regeneration in [place], [place] [address] [place] [phone] Jessica Rousseau M.B.B.S. [address] [place] [phone] 12/07/2025 3:00 PM CSTOffice Visit Department of Palliative Care in [place], [place] [address] [place] [phone] Martine Pardo B.MKatalinaB.S., B.M., B.Ch. [address] [place] [phone] documented as of this encounter Visit Diagnoses Not on filedocumented in this encounter Additional Health Concerns InfectionOnset DateLast IndicatedResolved TimeProtective Lspsfhatbxe05/14/2023 03/02/2023ssessmentNoted TimePHQ-9 Depression Total Score: 9:42 AM CDTdocumented as of this encounter Care Teams Team MemberRelationshipSpecialtyStart DateEnd Date Renzo Andres M.D. [address] [place] [address] [place] [phone] PCP - GeneralFamily Medicine05/2312/4/25documented as of this encounter
--- OUTSIDE RECORDS SUMMARY | 2025-11-05 03:26 | XMS_ITS | Encounter Summary ---
Author Organization [facility] Address [address] [place] [address] Care Team Providers Care Management Recruiter Name Role Phone Elsewhere, Pcp Primary Care Provider Unavailabl e Reason for Visit * ReasonOnset DateCommentsMed Idjzuk9709/24/2025 Encounter Details DateTypeDepartmentCare Team (Latest Contact Info)Vucpvcfectk57/06/2025[facility] in [place], [place] [address] [place] [address] Jessica Rousseau M.B.B.S. [address] [place] [address] Med Refill Social History Tobacco UseTypesPacks/DayYears UsedDateSmoking [...] before you got the money to buymore.Patient iteohwwp32/25/2025Within the past 12 months, the food you [...] RecordedIn the past 12 months has the [employer], gas, oil, or water [employer] threatened to shut off services in your home?Patient icczwwzy04/25/2025Postpartum DepressionAnswerDate RecordedPHQ- 9 Total Score (max 27)12007/08/2025Housing StabilityAnswerDate RecordedWhat is your living situation today?I have a steady place to live08/13/2025Education AnswerDate RecordedWhat is the highest level of school you have completed or the highest degree you have received?Some college, no ehxunt9204/24/2019 CommentsNoSex and Gender InformationValueDate RecordedSex Assigned at Movsre8412/26/2018 8:37 PM CSTLegal YknVadpge67/02/2017 2:43 PM CSTGender Identity Wecykb1112/26/2018 8:37 PM CSTSexual OrientationChoose not to mgsgcnyg88/17/2021 3:46 PM CDTdocumented as of this encounter Miscellaneous Notes * Telephone Encounter - Millie Petersen R.N. 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 [address] [place] [phone] 11/17/2025 11:00 AM CSTTelemedicine Department of Palliative Care in [place], [place] [address] [place] [phone] Yary Landa D.O. [address] [place] [phone] 12/04/2025 1:30 PM CSTClinical Communication Virtual Review in [place], [place] 200 [place] [address] 12/07/2025 8:10 AM CSTLab Department of Laboratory Medicine and Pathology, [facility], in [place], [place] [address] [place] [phone] Jessica Rousseau M.B.B.S. [address] [place] [phone] 12/07/2025 9:15 AM CSTAppointment Outpatient Procedure Center in [place], [place] [address] [place] [phone] Jessica Rousseau M.B.B.S. [address] [place] [phone] 12/07/2025 11:00 AM CSTDiagnostic Division of Pulmonary Medicine in [place], [place] [address] [place] [phone] Jessica Rousseau M.B.B.S. [address] [place] [address] 12/07/2025 1:00 PM CSTOffice Visit [facility] Transplantation and Clinical Regeneration in [place], [place] [address] [place] [phone] Jessica Rousseau M.B.B.S. [address] [place] [phone] 12/07/2025 1:30 PM CSTNurse Only [facility] Transplantation and Clinical Regeneration in [place], [place] [address] [place] [address] Jessica Rousseau M.B.B.S. [address] [place] [phone] 12/07/2025 2:00 PM CSTOffice Visit [facility] Transplantation and Clinical Regeneration in [place], [place] [address] [place] [address] Jessica Rousseau M.B.B.S. [address] [place] [phone] 12/07/2025 3:00 PM CSTOffice Visit Department of Palliative Care in [place], [place] [address] [place] [address] Martine Pardo B.M.B.S., B.M., B.Ch. 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
--- OUTSIDE RECORDS SUMMARY | 2025-11-05 03:26 | XMS_ITS | Encounter Summary ---
Author Organization [facility] Address [address] [place] [address] Care Team Providers Care Department Assistant Name Role Phone Elsewhere, Pcp Primary Care Provider Unavailabl e Encounter Details DateTypeDepartmentCare Team (Latest Contact Info)Jcbpciknrjf86/10/2025linical Communication Pedro [facility] in [place], [place] [address] [place] [address] Jessica Rousseau M.B.B.S. 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 [address] [place] [phone] 11/17/2025 11:00 AM CSTTelemedicine Department of Palliative Care in [place], [place] [address] [place] [phone] Yary Landa D.O. [address] [place] [phone] 12/04/2025 1:30 PM CSTClinical Communication Virtual Review in [place], [place] 200 [place] [address] 12/07/2025 8:10 AM CSTLab Department of Laboratory Medicine and Pathology, [facility], in [place], [place] [address] [place] [phone] Jessica Rousseau M.B.B.S. [address] [place] [phone] 12/07/2025 9:15 AM CSTAppointment Outpatient Procedure Center in [place], [place] [address] [place] [phone] Jessica Rousseau M.B.B.S. [address] [place] [phone] 12/07/2025 11:00 AM CSTDiagnostic Division of Pulmonary Medicine in [place], [place] [address] [place] [phone] Jessica Rousseau M.B.B.S. [address] [place] [phone] 12/07/2025 1:00 PM CSTOffice Visit [facility] in [place], [place] [address] [place] [phone] Jessica Rousseau M.B.B.S. [address] [place] [phone] 12/07/2025 1:30 PM CSTNurse Only [facility] Transplantation and Clinical Regeneration in [place], [place] [address] [place] [phone] Jessica Rousseau M.B.B.S. [address] [place] [phone] 12/07/2025 2:00 PM CSTOffice Visit [facility] Transplantation and Clinical Regeneration in [place], [place] [address] [place] [phone] Jessica Rousseau M.B.B.S. [address] [place] [phone] 12/07/2025 3:00 PM CSTOffice Visit Department of Palliative Care in [place], [place] [address] [place] [phone] Martine Pardo B.M.B.S., B.M., B.Ch. [address] [place] [phone] documented as of this encounter Visit Diagnoses Not on filedocumented in this encounter Additional Health Concerns InfectionOnset DateLast IndicatedResolved TimeProtective Vhajnxrvrnc97/14/2023 03/02/2023ssessmentNoted TimePHQ-9 Depression Total Score: 9:42 AM CDTdocumented as of this encounter Care Teams Team MemberRelationshipSpecialtyStart DateEnd Date Elsewhere, Pcp PCP - GeneralInternal Hijnwuqp09/5/25documented as of this encounter
--- OUTSIDE RECORDS SUMMARY | 2025-11-05 03:26 | XMS_ITS | Encounter Summary ---
Author Organization [facility] Address [address] [place] [address] Care Team Providers Care Client Account Representative Name Role Phone Elsewhere, Pcp Primary Care Provider Unavailabl e Reason for Visit * ReasonOnset DateCommentsNurse Mnpxidxsiu76/10/2025 Encounter Details DateTypeDepartmentCare Team (Latest Contact Info)Pdwhxfzeakf68/10/2025linical Communication Department of Palliative Care in [place], [place] [address] [place] [address] Felicia Watt APRN, C.N.P., M.S.N. [address] [place] [phone] Nurse Assessment Social History Tobacco UseTypesPacks/DayYears UsedDateSmoking [...] before you got the money to buymore.Patient pvwnuhwm21/25/2025Within the past 12 months, the food you bought just didn't last and you didn't have money to get more.Patient lfsmdfke19/25/2025PRAPARE - TransportationAnswerDate RecordedIn the past 12 months, has lack of transportation kept you from medical appointments or from getting medications?No08/13/2025In the past 12 months, has lack of transportation kept you from meetings, work, or from getting things needed for daily living?No08/13/2025HC UtilitiesAnswerDate RecordedIn the past 12 months has the [employer], gas, oil, or water company threatened to shut off services in your home?Patient xjyjzane45/25/2025Postpartum DepressionAnswerDate RecordedPHQ- 9 Total Score (max 27)12007/08/2025Housing StabilityAnswerDate RecordedWhat is your living situation today?I have a steady place to live08/13/2025Education AnswerDate RecordedWhat is the highest level of school you have completed or the highest degree you have received?Some college, no xrqyyl7004/24/2019 CommentsNoSex and Gender InformationValueDate RecordedSex Assigned at Ik[employer]0912/26/2018 8:37 PM CSTLegal WngQkhzql71/02/2017 2:43 PM CSTGender Identity Yxhcts6112/26/2018 8:37 PM CSTSexual OrientationChoose not to /17/2021 [...] on 10/26/25 and local urgent care through [facility] where she tested negative for COVID and [...] clinical judgement and provider Twin Watt CNP. ROUTE DRIVER documented in this encounter Plan of Treatment DateTypeDepartmentCare Team (Latest Contact Info)Kesswofoxxv19/29/2025 9:00 AM CSTOffice Visit Department of Obstetrics and Gynecology in [place], [place] 200 [place] [address] Alice Linares M.D. [address] [place] [phone] 11/17/2025 11:00 AM CSTTelemedicine Department of Palliative Care in [place], [place] [address] [place] [address] Yary Landa D.O. [address] [place] [phone] 12/04/2025 1:30 PM CSTClinical Communication Virtual Review in [place], [place] 200 [place] [address] 12/07/2025 8:10 AM CSTLab Department of Laboratory Medicine and Pathology, [facility] in [place], [place] [address] [place] [phone] Jessica Rousseau M.B.B.S. [address] [place] [phone] 12/07/2025 9:15 AM CSTAppointment Outpatient Procedure Center in [place], [place] [address] [place] [phone] Jessica Rousseau M.B.B.S. [address] [place] [phone] 12/07/2025 11:00 AM CSTDiagnostic Division of Pulmonary Medicine in [place], [place] [address] [place] [phone] Jessica Rousseau M.B.B.S. [address] [place] [phone] 12/07/2025 1:00 PM CSTOffice Visit [facility] in [place], [place] [address] [place] [address] Jessica Rousseau M.B.B.S. [address] [place] [phone] 12/07/2025 1:30 PM CSTNurse Only [facility] Transplantation and Clinical Regeneration in [place], [place] [address] [place] [phone] Jessica Rousseau M.B.B.S. [address] [place] [phone] 12/07/2025 2:00 PM CSTOffice Visit [facility] Transplantation and Clinical Regeneration in [place], [place] [address] [place] [phone] Jessica Rousseau M.B.B.S. [address] [place] [phone] 12/07/2025 3:00 PM CSTOffice Visit Department of Palliative Care in [place], [place] [address] [place] [phone] Martine Pardo B.MKatalinaB.S., B.M., B.Ch. [address] [place] [phone] documented as of this encounter Visit Diagnoses Not on filedocumented in this encounter Additional Health Concerns InfectionOnset DateLast IndicatedResolved TimeProtective Tfvpxhttntl75/14/2023 03/02/2023ssessmentNoted TimePHQ-9 Depression Total Score: 12007/08/2025 9:42 AM CDTdocumented as of this encounter Care Teams Team MemberRelationshipSpecialtyStart DateEnd Date Elsewhere, Pcp PCP - GeneralInternal Bnvfkbbm65/5/25documented as of this encounter
--- OUTSIDE RECORDS SUMMARY | 2025-11-05 03:27 | XMS_ITS | Encounter Summary ---
Author Organization [facility] Address [address] [place] [address] Care Team Providers Care Surveillance Investigator Name Role Phone Elsewhere, Pcp Primary Care Provider Unavailabl e Reason for Visit * ReasonOnset DateCommentsSymptom Ymvfvedetd97/12/2025 Encounter Details DateTypeDepartmentCare Team (Latest Contact Info)Dffsfbxjzoy18/12/2025linical Communication Pedro sanchez [facility] for Transplantation and Clinical Regeneration in [place], [place] [address] [place] [address] Jessica Rousseau M.B.B.S. 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 [address] [place] [phone] 11/17/2025 11:00 AM CSTTelemedicine Department of Palliative Care in [place], [place] [address] [place] [phone] Yary Landa D.O. [address] [place] [phone] 12/04/2025 1:30 PM CSTClinical Communication Virtual Review in [place], [place] 200 [place] [address] 12/07/2025 8:10 AM CSTLab Department of Laboratory Medicine and Pathology, [facility] in [place], [place] [address] [place] [phone] Jessica Rousseau M.B.B.S. [address] [place] [phone] 12/07/2025 9:15 AM CSTAppointment Outpatient Procedure Center in [place], [place] [address] [place] [phone] Jessica Rousseau M.B.B.S. [address] [place] [phone] 12/07/2025 11:00 AM CSTDiagnostic Division of Pulmonary Medicine in [place], [place] [address] [place] [phone] Jessica Rousseau M.B.B.S. [address] [place] [phone] 12/07/2025 1:00 PM CSTOffice Visit [facility] Transplantation and Clinical Regeneration in [place], [place] [address] [place] [address] Jessica Rousseau M.B.B.S. [address] [place] [phone] 12/07/2025 1:30 PM CSTNurse Only [facility] Transplantation and Clinical Regeneration in [place], [place] [address] [place] [phone] Jessica Rousseau M.B.B.S. [address] [place] [phone] 12/07/2025 2:00 PM CSTOffice Visit [facility] Transplantation and Clinical Regeneration in [place], [place] [address] [place] [address] Jessica Rousseau M.B.B.S. [address] [place] [phone] 12/07/2025 3:00 PM CSTOffice Visit Department of Palliative Care in [place], [place] [address] [place] [phone] Martine Pardo B.M.B.S., B.M., B.Ch. [address] [place] [phone] documented as of this encounter Visit Diagnoses Not on filedocumented in this encounter Additional Health Concerns InfectionOnset DateLast IndicatedResolved TimeProtective Vplvletnbvk62/14/2023 03/02/2023ssessmentNoted TimePHQ-9 Depression Total Score: 12007/08/2025 9:42 AM CDTdocumented as of this encounter Care Teams Team MemberRelationshipSpecialtyStart DateEnd Date Elsewhere, Pcp PCP - GeneralInternal Mgyaigib59/5/25documented as of this encounter
--- OUTSIDE RECORDS SUMMARY | 2025-11-05 03:27 | XMS_ITS | Encounter Summary ---
Author Organization [facility] Address [address] [place] [address] Care Team Providers Care Medical Customer Service Representative Name Role Phone Renzo Andres M.D. Primary Care Provider [phone] Encounter Details DateTypeDepartmentCare Team (Latest Contact Info)Ibqycagrkow18/24/2025linical Communication Division of Hematology in [place], [place] [address] [place] [address] Jessica Rousseau M.B.B.S. [address] [place] [address] Social History Tobacco UseTypesPacks/DayYears UsedDateSmoking Tobacco: NeverSmokeless [...] before you got the money to buymore.Patient scpcdypx29/25/2025Within the past 12 months, the food you bought just didn't last and you didn't have money to get more.Patient aygcsjht15/25/2025PRAPARE - TransportationAnswerDate RecordedIn the past 12 months, has lack of transportation kept you from medical appointments or from getting medications?No08/13/2025In the past 12 months, has lack of transportation kept you from meetings, work, or from getting things needed for daily living?No08/13/2025HC UtilitiesAnswerDate RecordedIn the past 12 months has the [employer], gas, oil, or water [employer] threatened to shut off services in your home?Patient xbcromvy90/25/2025Postpartum DepressionAnswerDate RecordedPHQ- 9 Total Score (max 27)Housing StabilityAnswerDate RecordedWhat is your living situation today?I have a steady place to live08/13/2025Education AnswerDate RecordedWhat is the highest level of school you have completed or the highest degree you have received?Some college, no epaxyh9504/24/2019 CommentsNoSex and Gender InformationValueDate RecordedSex Assigned at Hrjkzi3312/26/2018 8:37 PM CSTLegal TmkLjhlth21/02/2017 2:43 PM CSTGender Identity Mznoyv1312/26/2018 8:37 PM CSTSexual OrientationChoose not to kgpwyqnc60/17/2021 3:46 PM CDTdocumented as of this encounter Plan of Treatment DateTypeDepartmentCare Team (Latest Contact Info)Bmkqnksljkw80/29/2025 9:00 AM CSTOffice Visit Department of Obstetrics and Gynecology in [place], [place] [address] [place] [phone] Alice Linares M.D. [address] [place] [phone] 11/17/2025 11:00 AM CSTTelemedicine Department of Palliative Care in [place], [place] [address] [place] [phone] Yary Landa D.O. [address] [place] [phone] 12/04/2025 1:30 PM CSTClinical Communication Virtual Review in [place], [place] [address] [place] [address] 12/07/2025 8:10 AM CSTLab Department of Laboratory Medicine and Pathology, [facility], in [place], [place] [address] [place] [phone] Jessica Rousseau M.B.B.S. [address] [place] [phone] 12/07/2025 9:15 AM CSTAppointment Outpatient Procedure Center in [place], [place] [address] [place] [phone] Jessica Rousseau M.B.B.S. [address] [place] [phone] 12/07/2025 11:00 AM CSTDiagnostic Division of Pulmonary Medicine in [place], [place] [address] [place] [phone] Jessica Rousseau M.B.B.S. [address] [place] [phone] 12/07/2025 1:00 PM CSTOffice Visit [facility] in [place], [place] [address] [place] [phone] Jessica Rousseau M.B.B.S. [address] [place] [phone] 12/07/2025 1:30 PM CSTNurse Only [facility] Transplantation and Clinical Regeneration in [place], [place] [address] [place] [phone] Jessica Rousseau M.B.B.S. [address] [place] [phone] 12/07/2025 2:00 PM CSTOffice Visit [facility] Transplantation and Clinical Regeneration in [place], [place] [address] [place] [phone] Jessica Rousseau M.B.B.S. [address] [place] [phone] 12/07/2025 3:00 PM CSTOffice Visit Department of Palliative Care in [place], [place] [address] [place] [phone] Martine Pardo B.MKatalinaB.S., B.M., B.Ch. [address] [place] [phone] documented as of this encounter Visit Diagnoses Not on filedocumented in this encounter Additional Health Concerns InfectionOnset DateLast IndicatedResolved TimeProtective Jipiragtuku47/14/2023 03/02/2023ssessmentNoted TimePHQ-9 Depression Total Score: 9:42 AM CDTdocumented as of this encounter Care Teams Team MemberRelationshipSpecialtyStart DateEnd Date Renzo Andres M.D. [address] [place] [address] [place] [phone] [facility] - [facility]12/4/25documented as of this encounter
--- OUTSIDE RECORDS SUMMARY | 2025-11-05 03:27 | XMS_ITS | Encounter Summary ---
Author Organization [facility] Address [address] [place] [address] Care Team Providers Care Director Of Education Name Role Phone Renzo Andres M.D. Primary Care Provider Encounter Details DateTypeDepartmentCare Team (Latest Contact Info)Gsnsljjrjjt29/14/2025linical Communication Pedro Fatima [facility] for Transplantation and Clinical Regeneration in [place], [place] [address] [place] [address] eJssica Rousseau M.B.B.S. [address] [place] [address] Social History Tobacco UseTypesPacks/DayYears UsedDateSmoking Tobacco: NeverSmokeless [...] before you got the money to buymore.Patient bevbeafj19/25/2025Within the past 12 months, the food you bought just didn't last and you didn't have money to get more.Patient reiwsznj61/25/2025PRAPARE - TransportationAnswerDate RecordedIn the past 12 months, has lack of transportation kept you from medical appointments or from getting medications?No08/13/2025In the past 12 months, has lack of transportation kept you from meetings, work, or from getting things needed for daily living?No08/13/2025HC UtilitiesAnswerDate RecordedIn the past 12 months has the electric, gas, oil, or water company threatened to shut off services in your home?Patient fncyukox45/25/2025Postpartum DepressionAnswerDate RecordedPHQ- 9 Total Score (max 27)12007/08/2025Housing StabilityAnswerDate RecordedWhat is your living situation today?I have a steady place to live08/13/2025Education AnswerDate RecordedWhat is the highest level of school you have completed or the highest degree you have received?Some college, no byrsbk5104/24/2019 CommentsNoSex and Gender InformationValueDate RecordedSex Assigned at Zqcnsm3012/26/2018 8:37 PM CSTLegal QvlAxlhcw20/02/2017 2:43 PM CSTGender Identity Ttzyfk6412/26/2018 8:37 PM CSTSexual OrientationChoose not to jrostlca96/17/2021 3:46 PM CDTdocumented as of this encounter [...] Rousseau. Outside labs can be found in [employer]. Labs Ordered: CBC with differential, CMP, and Mag Frequency: Once BMT Return Appointment: Nov 2025 Additional Information: Patient to have blood draw once to monitor WBC/ANC. If those are WNL she does not need another one until she returns. documented in this encounter Plan of Treatment DateTypeDepartmentCare Team (Latest Contact Info)Jmsswgmknoc45/29/2025 9:00 AM CSTOffice Visit Department of Obstetrics and Gynecology in [address] [phone] Alice Linares M.D. [address] [place] [phone] 11/17/2025 11:00 AM CSTTelemedicine Department of Palliative Care in [address] [phone] Yary Landa D.O. [address] [place] [phone] 12/04/2025 1:30 PM CSTClinical Communication Virtual Review in [place], [place] 200 [place] [phone] 12/07/2025 8:10 AM CSTLab Department of Laboratory Medicine and Pathology, [facility], in [place], [place] [address] [place] [phone] Jessica Rousseau M.B.B.S. [address] [place] [address] 12/07/2025 9:15 AM CSTAppointment Outpatient Procedure Center in [place], [place] [address] [place] [address] Jessica Rousseau M.B.B.S. [address] [place] [phone] 12/07/2025 11:00 AM CSTDiagnostic Division of Pulmonary Medicine in [place], [place] [address] [place] [address] Jessica Rousseau M.B.B.S. [address] [place] [phone] 12/07/2025 1:00 PM CSTOffice Visit [facility] for Transplantation and Clinical Regeneration in [place], [place] [address] [place] [address] Jessica Rousseau M.B.B.S. [address] [place] [phone] 12/07/2025 1:30 PM CSTNurse Only [facility] for Transplantation and Clinical Regeneration in [place], [place] [address] [place] [address] Jessica Rousseau M.B.B.S. [address] [place] [phone] 12/07/2025 2:00 PM CSTOffice Visit [facility] for Transplantation and Clinical Regeneration in [place], [place] [address] [place] [address] Jessica Rousseau M.B.B.S. [address] [place] [phone] 12/07/2025 3:00 PM CSTOffice Visit Department of Palliative Care in [place], [place] [address] [place] [address] Martine Pardo B.M.BKatalinaS., B.M., B.Ch. [address] [place] [phone] documented as of this encounter Visit Diagnoses Not on filedocumented in this encounter Additional Health Concerns InfectionOnset DateLast IndicatedResolved TimeProtective Roindgvmgtz09/14/2023 03/02/2023ssessmentNoted TimePHQ-9 Depression Total Score: 9:42 AM CDTdocumented as of this encounter Care Teams Team MemberRelationshipSpecialtyStart DateEnd Date Renzo Andres M.D. [address] [place] [phone] PCP - GeneralFamily Medicine04/2505/2312/4/25documented as of this encounter
--- OUTSIDE RECORDS SUMMARY | 2025-11-05 03:27 | XMS_ITS | Encounter Summary ---
Author Organization [facility] Address [address] [place] [address] Care Team Providers Care Chainstitch Seat Joiner Name Role Phone Elsewhere, Pcp Primary Care Provider Unavailabl e Encounter Details DateTypeDepartmentCare Team (Latest Contact Info)Rqpuycedxei31/17/2025Clinical Communication Department of Palliative Care in [place], [place] [address] [place] [address] Jennifer Tolbert, Nabil-C., M.S. [address] [place] [address] Social History Tobacco UseTypesPacks/DayYears UsedDateSmoking Tobacco: NeverSmokeless [...] RecordedIn the past 12 months has the [employer], gas, oil, or water [employer] threatened to shut off services in your home?11/01/2025Postpartum DepressionAnswerDate RecordedPHQ-9 Total Score (max 27)Housing StabilityAnswerDate RecordedWhat is your living situation today?I have a steady place to live11/01/2025EducationAnswerDate RecordedWhat is the highest level of school you have completed or the highest degree you have received?Some college, no pbcztz1304/24/2019CommentsNoSex and Gender InformationValueDate RecordedSex Assigned at EdsiaQktfqm42/07/2019 8:37 PM CERTIFIED PUBLIC ACCOUNTANT Legal FfzIsigao99/02/2017 2:43 PM CSTGender IlaldgksKhvkip20/07/2019 8:37 PM CERTIFIED PUBLIC ACCOUNTANT Sexual OrientationChoose not to zdqapepy30/17/2021 3:46 PM CDTdocumented as of this encounter Miscellaneous Notes * Telephone Encounter - Mallory Delgadillo R.N., [facility] - 11/04/2025 4:28 PM CST Information Discussed Radha Martinez is a 35-year-old woman from [place], [place] 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 Radha calls today reporting worsening abdominal pain in the right abdomen which now radiates to around to her back. The radiating pain caused her concern and she presented to local ED at [facility] early today. Radha states the ED prescribed Hydromorphone which does not help her pain. Radha states she has been taking the Celebrex 100 mg twice daily since her hospitalization. She also does not feel this is helping her pain. She calls our office for further recommendations. We discussed that she has only had two doses of the Celebrex and she needs to give the medication more time to become effective. We also discussed that her most recent imaging is reassuring and negative for an acute cause of her pain. Compassionate discussion regarding the correlation between mind and body. Encouraged Radha to reflect on coping strategies she has learned in group therapy, especially when pain levels are increasing. PLAN Encouraged patient to continue using non-pharmacological strategies to manage her pain and anxiety.She plans to contact her PCP office tomorrow for a sooner appointment. Follow up with Gynecology asscheduled. Disposition/Recommendation: recommended continue engagement in self-management activities Information/Education: patient/caller able to teach back Caller agreeable to plan of care: yes The following references were used: nursing clinical judgement and provider Dr. Benja Magdaleno and Delia Tolbert PA-C IFIED PUBLIC ACCOUNTANT documented in this encounter Plan of Treatment DateTypeDepartmentCare Team (Latest Contact Info)Phbsxhilcso39/29/2025 9:00 AM CSTOffice Visit Department of Obstetrics and Gynecology in [place], [place] 200 [place] [address] Alice Linares M.D. 200 [place] [address] 11/17/2025 11:00 AM CSTTelemedicine Department of Palliative Care in [place], [place] [address] [place] [phone] Yary Landa D.O. [address] [place] [phone] 12/04/2025 1:30 PM CSTClinical Communication Virtual Review in [place], [place] [address] [place] [address] 12/07/2025 8:10 AM CSTLab Department of Laboratory Medicine and Pathology, [facility] in [place], [place] [address] [place] [phone] Jessica Rousseau M.B.B.S. [address] [place] [phone] 12/07/2025 9:15 AM CSTAppointment Outpatient Procedure Center in [place], [place] [address] [place] [phone] Jessica Rousseau M.B.B.S. [address] [place] [phone] 12/07/2025 11:00 AM CSTDiagnostic Division of Pulmonary Medicine in [place], [place] [address] [place] [phone] Jessica Rousseau M.B.B.S. [address] [place] [phone] 12/07/2025 1:00 PM CSTOffice Visit [facility] in [place], [place] [address] [place] [phone] Jessica Rousseau M.B.B.S. [address] [place] [phone] 12/07/2025 1:30 PM CSTNurse Only [facility] Transplantation and Clinical Regeneration in [place], [place] [address] [place] [phone] Jessica Rousseau M.B.B.S. [address] [place] [phone] 12/07/2025 2:00 PM CSTOffice Visit [facility] Transplantation and Clinical Regeneration in [place], [place] [address] [place] [phone] Jessica Rousseau M.B.B.S. [address] [place] [phone] 12/07/2025 3:00 PM CSTOffice Visit Department of Palliative Care in [place], [place] [address] [place] [phone] Martine Pardo B.M.B.S., B.M., B.Ch. [address] [place] [phone] documented as of this encounter Visit Diagnoses Not on filedocumented in this encounter Additional Health Concerns InfectionOnset DateLast IndicatedResolved TimeProtective Nghszzewemi24/14/2023 03/02/2023ssessmentNoted TimePHQ-9 Depression Total Score: 9:42 AM CDTdocumented as of this encounter Care Teams Team MemberRelationshipSpecialtyStart DateEnd Date Elsewhere, Pcp PCP - GeneralInternal Vbhazuix50/5/25documented as of this encounter
--- OUTSIDE RECORDS SUMMARY | 2025-11-05 03:27 | XMS_ITS | Encounter Summary ---
Author Organization [facility] Address [address] [place] [address] Care Team Providers Care Car Pusher Name Role Phone Elsewhere, Pcp Primary Care Provider Unavailabl e Reason for Visit * ReasonOnset DateCommentsTreatment Plan Thcvdo5811/04/2025Internal CPP Encounter Details DateTypeDepartmentCare Team (Latest Contact Info)Cqinripjpds88/17/2025linical Communication Department of Obstetrics and Gynecology in [place], [place] [address] [place] [address] Prescheduling, Provider Treatment Plan Review (Internal CPP) Social History Tobacco UseTypesPacks/DayYears UsedDateSmoking Tobacco: NeverSmokeless [...] RecordedIn the past 12 months has the [employer], gas, oil, or water [employer] threatened to shut off services in your home?No11/01/2025Postpartum DepressionAnswerDate RecordedPHQ-9 Total Score (max 27)Housing StabilityAnswerDate RecordedWhat is your living situation today?I have a steady place to live11/01/2025EducationAnswerDate RecordedWhat is the highest level of school you have completed or the highest degree you have received?Some college, no ejthfs9504/24/2019CommentsNoSex and Gender InformationValueDate RecordedSex Assigned at WijabQoeaoy43/07/2019 8:37 PM TELEVISION NEWS REPORTER Legal CybHwrwdk83/02/2017 2:43 PM CSTGender TaesjvolTheocf41/07/2019 8:37 PM TELEVISION NEWS REPORTER Sexual OrientationChoose not to guffoqac21/17/2021 3:46 PM CDTdocumented as of this encounter Plan of Treatment DateTypeDepartmentCare Team (Latest Contact Info)Dkgtjztdygr95/29/2025 9:00 AM CSTOffice Visit Department of Obstetrics and Gynecology in [place], [place] [address] [place] [phone] Alice Linares M.D. [address] [place] [phone] 11/17/2025 11:00 AM CSTTelemedicine Department of Palliative Care in [place], [place] [address] [place] [phone] Yary Landa D.O. [address] [place] [phone] 12/04/2025 1:30 PM CSTClinical Communication Virtual Review in [place], [place] 200 [place] [address] 12/07/2025 8:10 AM CSTLab Department of Laboratory Medicine and Pathology, [facility] in [place], [place] [address] [place] [phone] Jessica Rousseau M.B.B.S. [address] [place] [phone] 12/07/2025 9:15 AM CSTAppointment Outpatient Procedure Center in [place], [place] [address] [place] [phone] Jessica Rousseau M.B.B.S. [address] [place] [phone] 12/07/2025 11:00 AM CSTDiagnostic Division of Pulmonary Medicine in [place], [place] [address] [place] [phone] Jessica Rousseau M.B.B.S. [address] [place] [phone] 12/07/2025 1:00 PM CSTOffice Visit Pedro sanchez [facility] for Transplantation and Clinical Regeneration in [place], [place] [address] [place] [phone] Jessica Rousseau M.B.B.S. [address] [place] [phone] 12/07/2025 1:30 PM CSTNurse Only [facility] Transplantation and Clinical Regeneration in [place], [place] [address] [place] [phone] Jessica Rousseau M.B.B.S. [address] [place] [phone] 12/07/2025 2:00 PM CSTOffice Visit [facility] Transplantation and Clinical Regeneration in [place], [place] [address] [place] [phone] Jessica Rousseau M.B.B.S. [address] [place] [phone] 12/07/2025 3:00 PM CSTOffice Visit Department of Palliative Care in [place], [place] [address] [place] [phone] Martine Pardo B.M.B.S., B.M., B.Ch. [address] [place] [phone] documented as of this encounter Visit Diagnoses Not on filedocumented in this encounter Additional Health Concerns InfectionOnset DateLast IndicatedResolved TimeProtective Okcjqdufesv80/14/2023 03/02/2023ssessmentNoted TimePHQ-9 Depression Total Score: 9:42 AM CDTdocumented as of this encounter Care Teams Team MemberRelationshipSpecialtyStart DateEnd Date Elsewhere, Pcp PCP - GeneralInternal Mnpkexmr87/5/25documented as of this encounter
--- OUTSIDE RECORDS SUMMARY | 2025-11-05 03:27 | XMS_ITS | Encounter Summary ---
Author Organization [facility] Address [address] [place] [address] Care Team Providers Care Bung Remover Name Role Phone Elsewhere, Pcp Primary Care Provider Unavailabl e Reason for Visit * ReasonOnset DateCommentsLab Jckiqfomhi81/12/88087811/30/24 Encounter Details DateTypeDepartmentCare Team (Latest Contact Info)Ymvjexvrcth84/12/2025linical Communication Pedro sanchez [facility] in [place], [place] [address] [place] [address] Arely Taylor R.N. [address] [place] [address] Lab Monitoring (09/30/25) Social History Tobacco UseTypesPacks/DayYears [...] your home?11/01/2025Postpartum DepressionAnswerDate RecordedPHQ-9 Total Score (max 27)1208Housing StabilityAnswerDate RecordedWhat is your living situation today?I have a steady place to live11/01/2025EducationAnswerDate RecordedWhat is the highest level of school you have completed or the highest degree you have received?Some college, no irsgea8804/24/2019CommentsNoSex and Gender InformationValueDate RecordedSex Assigned at AeehkXkuxza71/07/2019 8:37 PM ECONOMETRICS PROFESSOR Legal RyyEnbtie96/02/2017 2:43 PM CSTGender PowmzbmgQjoogj83/07/2019 8:37 PM ECONOMETRICS PROFESSOR Sexual OrientationChoose not to dksjnfeo95/17/2021 3:46 PM CDTdocumented as of this encounter Miscellaneous Notes * Telephone Encounter - rAely Taylor R.N. - 09/30/2025 2:41 PM ECONOMETRICS PROFESSOR Current Immunosuppression: None GVHD: no ACUTE GVHD [...] are located in the Labs section of [facility]. Labs pending: None Resulted Labs: Recent Labs [...] Undetected Undetected Undetected Please respond to P RSAditi TXP BMT TEAM 2 RN if any follow up is needed. Thanks! OMETRICS PROFESSOR documented in this encounter Plan of Treatment DateTypeDepartmentCare Team (Latest Contact Info)Ohmrucmocao99/29/2025 9:00 AM CSTOffice Visit Department of Obstetrics and Gynecology in [place], [place] [address] [place] [phone] Alice Linares M.D. [address] [place] [phone] 11/17/2025 11:00 AM CSTTelemedicine Department of Palliative Care in [place], [place] [address] [place] [phone] Yary Landa D.O. [address] [place] [phone] 12/04/2025 1:30 PM CSTClinical Communication Virtual Review in [place], [place] 200 [place] [address] 12/07/2025 8:10 AM CSTLab Department of Laboratory Medicine and Pathology, [facility] in [place], [place] [address] [place] [phone] Jessica Rousseau M.B.B.S. [address] [place] [phone] 12/07/2025 9:15 AM CSTAppointment Outpatient Procedure Center in [place], [place] [address] [place] [phone] Jessica Rousseau M.B.B.S. [address] [place] [phone] 12/07/2025 11:00 AM CSTDiagnostic Division of Pulmonary Medicine in [place], [place] [address] [place] [phone] Jessica Rousseau M.B.B.S. [address] [place] [phone] 12/07/2025 1:00 PM CSTOffice Visit Pedro Aravind sanchez [facility] in [place], [place] [address] [place] [phone] Jessica Rousseau M.B.B.S. [address] [place] [phone] 12/07/2025 1:30 PM CSTNurse Only [facility] in [place], [place] [address] [place] [phone] Jessica Rousseau M.B.B.S. [address] [place] [phone] 12/07/2025 2:00 PM CSTOffice Visit [facility] in [place], [place] [address] [place] [phone] Jessica Rousseau M.B.B.S. [address] [place] [phone] 12/07/2025 3:00 PM CSTOffice Visit Department of Palliative Care in [place], [place] [address] [place] [phone] Martine Pardo B.M.B.S., B.M., B.Ch. [address] [place] [phone] documented as of this encounter Visit Diagnoses Not on filedocumented in this encounter Additional Health Concerns InfectionOnset DateLast IndicatedResolved TimeProtective Bulrqzwjncw95/14/2023 03/02/2023ssessmentNoted TimePHQ-9 Depression Total Score: 9:42 AM CDTdocumented as of this encounter Care Teams Team MemberRelationshipSpecialtyStart DateEnd Date Elsewhere, Pcp PCP - GeneralInternal Pvudyyyg61/5/25documented as of this encounter
--- OUTSIDE RECORDS SUMMARY | 2025-11-05 03:27 | XMS_ITS | Encounter Summary ---
Author Organization [facility] Address [address] [place] [address] Care Team Providers Care Resident Engineer Name Role Phone Renzo Andres M.D. Primary Care Provider [phone] Reason for Referral * Outpatient (Routine) - AuthorizedSpecialtyDiagnoses / ProceduresReferred By ContactReferred To ContactFamily Medicine Renzo Andres M.D. [address] [place] [address] Phone: tel: fax: [facility] Region Referral IDStatusReasonStart DateExpiration DateVisits RequestedVisits [id number]/4/20255/ OSURGICAL PHYSICIAN ASSISTANT Encounter Details DateTypeDepartmentCare Team (Latest Contact Info)Vdryrxsoraf50/04/2025Orders Only [facility] Renzo And[facility] M.[facility]. [address] [place] [address] Social History Tobacco UseTypesPacks/DayYears UsedDateSmoking Tobacco: NeverSmokeless [...] before you got the money to buymore.Patient nycalkur38/25/2025Within the past 12 months, the food you [...] /25/2025Postpartum DepressionAnswerDate RecordedPHQ- 9 Total Score (max 27)Housing StabilityAnswerDate RecordedWhat is your living situation today?I have a steady place to live08/13/2025Education AnswerDate RecordedWhat is the highest level of school you have completed or the highest degree you have received?Some college, no ovrelj4104/24/2019 CommentsNoSex and Gender InformationValueDate RecordedSex Assigned at Drwiek9812/26/2018 8:37 PM CSTLegal NcjKzdbou93/02/2017 2:43 PM CSTGender Identity Dnvgfi5912/26/2018 8:37 PM CSTSexual OrientationChoose not to /17/2021 3:46 PM CDTdocumented as of this encounter Plan of Treatment DateTypeDepartmentCare Team (Latest Contact Info)Xbghslprloq34/29/2025 9:00 AM CSTOffice Visit Department of Obstetrics and Gynecology in [place], [place] [address] [place] [phone] Alice Linares M.D. [address] [place] [phone] 11/17/2025 11:00 AM CSTTelemedicine Department of Palliative Care in [place], [place] [address] [place] [phone] Yary Landa D.O. [address] [place] [phone] 12/04/2025 1:30 PM CSTClinical Communication Virtual Review in [place], [place] 200 [place] [address] 12/07/2025 8:10 AM CSTLab Department of Laboratory Medicine and Pathology, [facility] in [place], [place] [address] [place] [phone] Jessica Rousseau M.B.B.S. [address] [place] [phone] 12/07/2025 9:15 AM CSTAppointment Outpatient Procedure Center in [address] [phone] Jessica Rousseau M.B.B.S. [address] [place] [phone] 12/07/2025 11:00 AM CSTDiagnostic Division of Pulmonary Medicine in [place], [place] [address] [place] [address] Jessica Rousseau M.B.B.S. [address] [place] [phone] 12/07/2025 1:00 PM CSTOffice Visit [facility] in [place], [place] [address] [place] [address] Jessica Rousseau M.B.B.S. [address] [place] [phone] 12/07/2025 1:30 PM CSTNurse Only [facility] in [place], [place] [address] [place] [phone] Jessica Rousseau M.B.B.S. [address] [place] [phone] 12/07/2025 2:00 PM CSTOffice Visit [facility] in [place], [place] [address] [place] [phone] Jessica Rousseau M.B.B.S. [address] [place] [phone] 12/07/2025 3:00 PM CSTOffice Visit Department of Palliative Care in [place], [place] [address] [place] [phone] Martine Pardo B.M.B.S., B.M., B.Ch. [address] [place] [phone] NameTypePriorityAssociated DiagnosesOrder ScheduleFamily Medicine office visit (clinic)Outpatient ReferralRoutineExpected: 10/06/2025, Expires: 03/11/2026 documented as of this encounter Visit Diagnoses Not on filedocumented in this encounter Additional Health Concerns InfectionOnset DateLast IndicatedResolved TimeProtective Fcgvsbyqeom71/14/2023 03/02/2023ssessmentNoted TimePHQ-9 Depression Total Score: 9:42 AM CDTdocumented as of this encounter Care Teams Team MemberRelationshipSpecialtyStart DateEnd Date Renzo Andres M.D. [address] [place] [phone] PCP - GeneralFamily Medicine04/2505/2312/4/25documented as of this encounter
--- OUTSIDE RECORDS SUMMARY | 2025-11-05 03:27 | XMS_ITS | Encounter Summary ---
Author Organization [facility] Address [address] [place] [address] Care Team Providers Care Aerial Applicator Pilot Name Role Phone Elsewhere, Pcp Primary Care Provider Unavailabl e Reason for Visit * ReasonOnset BtwdLtvjepzuVygndvnorslyc30/12/2025 Encounter Details DateTypeDepartmentCare Team (Latest Contact Info)Nibzpdkmknv23/12/2025linical Communication [facility] in [place], [place] [address] [place] [address] Transplant, Coordinator, R.N. Communication Social History Tobacco [...] RecordedIn the past 12 months has the [employer], gas, oil, or water [employer] threatened to shut off services in your home?No11/01/2025Postpartum DepressionAnswerDate RecordedPHQ-9 Total Score (max 27)Housing StabilityAnswerDate RecordedWhat is your living situation today?I have a steady place to live11/01/2025EducationAnswerDate RecordedWhat is the highest level of school you have completed or the highest degree you have received?Some college, no fqurgv0204/24/2019CommentsNoSex and Gender InformationValueDate RecordedSex Assigned at OwnqnQbkhso36/07/2019 8:37 PM INFORMATION WRITER Legal ErvHdmyqe80/02/2017 2:43 PM CSTGender LymfhvluCarjbv87/07/2019 8:37 PM INFORMATION WRITER Sexual OrientationChoose not to kslmmido58/17/2021 3:46 PM CDTdocumented as of this encounter [...] following references were used: nursing clinical judgement. RMATION WRITER documented in this encounter Plan of Treatment DateTypeDepartmentCare Team (Latest Contact Info)Wlwugxzegeu00/29/2025 9:00 AM CSTOffice Visit Department of Obstetrics and Gynecology in [address] [phone] Alice Linares M.D. [address] [place] [phone] 11/17/2025 11:00 AM CSTTelemedicine Department of Palliative Care in [address] [phone] Yary Landa D.O. [address] [place] [phone] 12/04/2025 1:30 PM CSTClinical Communication Virtual Review in [address] [phone] 12/07/2025 8:10 AM CSTLab Department of Laboratory Medicine and Pathology, [facility], in [address] [phone] Jessica Rousseau M.B.B.S. [address] [place] [phone] 12/07/2025 9:15 AM CSTAppointment Outpatient Procedure Center in [place], [place] [address] [place] [address] Jessica Rousseau M.B.B.S. [address] [place] [phone] 12/07/2025 11:00 AM CSTDiagnostic Division of Pulmonary Medicine in [place], [place] [address] [place] [address] Jessica Rousseau M.B.B.S. [address] [place] [phone] 12/07/2025 1:00 PM CSTOffice Visit Pedro sanchez [facility] in [place], [place] [address] [place] [address] Jessica Rousseau M.B.B.S. [address] [place] [phone] 12/07/2025 1:30 PM CSTNurse Only [facility] for Trans[facility] and Clinical Regeneration in [place], [place] [address] [place] [address] Jessica Rousseau M.B.B.S. [address] [place] [phone] 12/07/2025 2:00 PM CSTOffice Visit Pedro Nazario [facility] Transplantation and Clinical Regeneration in [place], [place] [address] [place] [address] Jessica Rousseau M.B.B.S. [address] [place] [phone] 12/07/2025 3:00 PM CSTOffice Visit Department of Palliative Care in [place], [place] [address] [place] [phone] Martine Pardo B.M.B.S., B.M., B.Ch. [address] [place] [phone] documented as of this encounter Visit Diagnoses Not on filedocumented in this encounter Additional Health Concerns InfectionOnset DateLast IndicatedResolved TimeProtective Ucevbreugvh07/14/2023 03/02/2023ssessmentNoted TimePHQ-9 Depression Total Score: 9:42 AM CDTdocumented as of this encounter Care Teams Team MemberRelationshipSpecialtyStart DateEnd Date Elsewhere, Pcp PCP - GeneralInternal Jtppgmbx18/5/25documented as of this encounter
--- OUTSIDE RECORDS SUMMARY | 2025-11-05 03:27 | XMS_ITS | Encounter Summary ---
Author Organization [facility] Address [address] [place] [address] Care Team Providers Care Nitrate Operator Name Role Phone Renzo Andres M.D. Primary Care Provider Encounter Details DateTypeDepartmentCare Team (Latest Contact Info)Pvsejiwwsjh88/07/2025linical Communication Pedro Fatima [facility] in [place], [place] [address] [place] [address] Geo Aguilar D.O. [address] [place] [address] Social History Tobacco UseTypesPacks/DayYears UsedDateSmoking Tobacco: NeverSmokeless [...] before you got the money to buymore.Patient bdijvhty55/25/2025Within the past 12 months, the food you bought just didn't last and you didn't have money to get more.Patient bevgofth37/25/2025PRAPARE - TransportationAnswerDate RecordedIn the past 12 months, has lack of transportation kept you from medical appointments or from getting medications?No08/13/2025In the past 12 months, has lack of transportation kept you from meetings, work, or from getting things needed for daily living?No08/13/2025HC UtilitiesAnswerDate RecordedIn the past 12 months has the electric, gas, oil, or water [employer] threatened to shut off services in your home?Patient /25/2025Postpartum DepressionAnswerDate RecordedPHQ- 9 Total Score (max 27)12007/08/2025Housing StabilityAnswerDate RecordedWhat is your living situation today?I have a steady place to live08/13/2025Education AnswerDate RecordedWhat is the highest level of school you have completed or the highest degree you have received?Some college, no ujwhwt1804/24/2019 CommentsNoSex and Gender InformationValueDate RecordedSex Assigned at Mthnzu0312/26/2018 8:37 PM CSTLegal QnuErflvf76/02/2017 2:43 PM CSTGender Identity Xiphlt8212/26/2018 8:37 PM CSTSexual OrientationChoose not to iprmsghf77/17/2021 3:46 PM CDTdocumented as of this encounter Plan of Treatment DateTypeDepartmentCare Team (Latest Contact Info)Rjyxqwrdvep44/29/2025 9:00 AM CSTOffice Visit Department of Obstetrics and Gynecology in [place], [place] [address] [place] [phone] Alice Linares M.D. [address] [place] [phone] 11/17/2025 11:00 AM CSTTelemedicine Department of Palliative Care in [place], [place] [address] [place] [phone] Yary Landa D.O. [address] [place] [phone] 12/04/2025 1:30 PM CSTClinical Communication Virtual Review in [place], [place] 200 [place] [address] 12/07/2025 8:10 AM CSTLab Department of Laboratory Medicine and Pathology, [facility], in [place], [place] [address] [place] [phone] Jessica Rousseau M.B.B.S. [address] [place] [phone] 12/07/2025 9:15 AM CSTAppointment Outpatient Procedure Center in [place], [place] [address] [place] [phone] Jessica Rousseau M.B.B.S. [address] [place] [phone] 12/07/2025 11:00 AM CSTDiagnostic Division of Pulmonary Medicine in [place], [place] [address] [place] [phone] Jessica Rousseau M.B.B.S. [address] [place] [phone] 12/07/2025 1:00 PM CSTOffice Visit [facility] in [place], [place] [address] [place] [phone] Jessica Rousseau M.B.B.S. [address] [place] [phone] 12/07/2025 1:30 PM CSTNurse Only [facility] Transplantation and Clinical Regeneration in [place], [place] [address] [place] [phone] Jessica Rousseau M.B.B.S. [address] [place] [phone] 12/07/2025 2:00 PM CSTOffice Visit [facility] Transplantation and Clinical Regeneration in [place], [place] [address] [place] [phone] Jessica Rousseau M.B.B.S. [address] [place] [phone] 12/07/2025 3:00 PM CSTOffice Visit Department of Palliative Care in [place], [place] [address] [place] [phone] Martine Pardo B.MKatalinaB.S., B.M., B.Ch. [address] [place] [phone] documented as of this encounter Visit Diagnoses Not on filedocumented in this encounter Additional Health Concerns InfectionOnset DateLast IndicatedResolved TimeProtective Ffkcwvoibbh48/14/2023 03/02/2023ssessmentNoted TimePHQ-9 Depression Total Score: 9:42 AM CDTdocumented as of this encounter Care Teams Team MemberRelationshipSpecialtyStart DateEnd Date Renzo Andres M.D. [address] [place], [place] [address] [phone] PCP - GeneralFamily Medicine04/25/2312documented as of this encounter
--- OUTSIDE RECORDS SUMMARY | 2025-11-05 03:27 | XMS_ITS | Encounter Summary ---
Author Organization [facility] Address [address] [place] [address] Care Team Providers Care Installations Inspector Name Role Phone Renzo Andres M.D. Primary Care Provider [phone] Reason for Visit * ReasonOnset DateCommentsMed Ihgunv8409/03/2025 Encounter Details DateTypeDepartmentCare Team (Latest Contact Info)Eqjmhfkhmjr51/16/2025Refill Department of Palliative Care in [place], [place] [address] [place] [address] Meghan Osorio M.D. [address] [place] [address] Med Refill Social History Tobacco UseTypesPacks/DayYears UsedDateSmoking [...] before you got the money to buymore.Patient kyarrfjy12/25/2025Within the past 12 months, the food you [...] RecordedIn the past 12 months has the [employer], gas, oil, or water [employer] threatened to shut off services in your home?Patient gmbtqzon65/25/2025Postpartum DepressionAnswerDate RecordedPHQ- 9 Total Score (max 27)12007/08/2025Housing StabilityAnswerDate RecordedWhat is your living situation today?I have a steady place to live08/13/2025Education AnswerDate RecordedWhat is the highest level of school you have completed or the highest degree you have received?Some college, no bppppb6304/24/2019 CommentsNoSex and Gender InformationValueDate RecordedSex Assigned at Gcnftz1212/26/2018 8:37 PM CSTLegal DrsJyzfmm93/02/2017 2:43 PM CSTGender Identity Wyqepj6612/26/2018 8:37 PM CSTSexual OrientationChoose not to mamnyxch67/17/2021 3:46 PM CDTdocumented as of this encounter Miscellaneous Notes * Telephone Encounter - Mallory Delgadillo R.N. [facility] - 09/03/2025 3:11 PM CDT Prescription Refill Request Current Prescription Regimen: Buprenorphine 5 mcg/hr one patch per week Last strength/amount/date filled: Buprenorphine 5 mcg/hr, #4 filled 08/14/25 [place] [employer] OFFICER reviewed Prescription/amount provided today: Buprenorphine 5 mcg/hr, #4 Prescription will be [place]-Pres[place] Last appointment was in person office visit on 08/11/25 Last in-office visit if different than above: n/a Next palliative appointment is telemedicine live video visit on 09/11/25 Prescription was authorized by Felicia Watt CNP documented in this encounter Plan of Treatment DateTypeDepartmentCare Team (Latest Contact Info)Uzjkodcxidc70/29/2025 9:00 AM CSTOffice Visit Department of Obstetrics and Gynecology in [address] [phone] Alice Linares M.D. [address] [place] [phone] 11/17/2025 11:00 AM CSTTelemedicine Department of Palliative Care in [place], [place] [address] [place] [phone] Yary Landa D.O. [address] [place] [phone] 12/04/2025 1:30 PM CSTClinical Communication Virtual Review in [place], [place] [address] [place] [phone] 12/07/2025 8:10 AM CSTLab Department of Laboratory Medicine and Pathology, [facility], in [place], [place] [address] [place] [phone] Jessica Rousseau M.B.B.S. [address] [place] [phone] 12/07/2025 9:15 AM CSTAppointment Outpatient Procedure Center in [place], [place] [address] [place] [address] Jessica Rousseau M.B.B.S. [address] [place] [phone] 12/07/2025 11:00 AM CSTDiagnostic Division of Pulmonary Medicine in [place], [place] [address] [place] [address] Jessica Rousseau M.B.B.S. [address] [place] [phone] 12/07/2025 1:00 PM CSTOffice Visit [facility] in [place], [place] [address] [place] [address] Jessica Rousseau M.B.B.S. [address] [place] [phone] 12/07/2025 1:30 PM CSTNurse Only [facility] for [facility] and Clinical Regeneration in [place], [place] [address] [place] [address] Jessica Rousseau M.B.B.S. [address] [place] [phone] 12/07/2025 2:00 PM CSTOffice Visit [facility] in [place], [place] [address] [place] [address] Jessica Rousseau M.B.B.S. [address] [place] [phone] 12/07/2025 3:00 PM CSTOffice Visit Department of Palliative Care in [place], [place] [address] [place] [phone] Martine Pardo B.M.B.S., B.M., B.Ch. [address] [place] [address] documented as of this encounter Visit Diagnoses Not on filedocumented in this encounter Additional Health Concerns InfectionOnset DateLast IndicatedResolved TimeProtective Qmxznzzwdrj67/14/2023 03/02/2023ssessmentNoted TimePHQ-9 Depression Total Score: 9:42 AM CDTdocumented as of this encounter Care Teams Team MemberRelationshipSpecialtyStart DateEnd Date Renzo Andres M.D. [address] [place] [phone] PCP - GeneralFamily Medicine04/2505/2312/4/25documented as of this encounter
--- OUTSIDE RECORDS SUMMARY | 2025-11-05 03:27 | XMS_ITS | Encounter Summary ---
Author Organization [facility] Address [address] [place] [address] Care Team Providers Care Legal Billing Clerk Name Role Phone Renzo Andres M.D. Primary Care Provider [phone] Reason for Visit * ReasonOnset DateCommentsMed Zktuty6608/31/2025 Encounter Details DateTypeDepartmentCare Team (Latest Contact Info)Rknggskxind78/13/2025Refill Pedro Naz[facility] Clinical Regeneration in [place], [place] [address] [place] [address] Jessica Rousseau M.B.B.S. [address] [place] [address] Med Refill Social History Tobacco UseTypesPacks/DayYears UsedDateSmoking [...] before you got the money to buymore.Patient veoywaau53/25/2025Within the past 12 months, the food you bought just didn't last and you didn't have money to get more.Patient sjjmecsl50/25/2025PRAPARE - TransportationAnswerDate RecordedIn the past 12 months, has lack of transportation kept you from medical appointments or from getting medications?No08/13/2025In the past 12 months, has lack of transportation kept you from meetings, work, or from getting things needed for daily living?No08/13/2025HC UtilitiesAnswerDate RecordedIn the past 12 months has the [employer], gas, oil, or water [employer] threatened to shut off services in your home?Patient bxmgerri87/25/2025Postpartum DepressionAnswerDate RecordedPHQ- 9 Total Score (max 27)12007/08/2025Housing StabilityAnswerDate RecordedWhat is your living situation today?I have a steady place to live08/13/2025Education AnswerDate RecordedWhat is the highest level of school you have completed or the highest degree you have received?Some college, no hastzt3804/24/2019 CommentsNoSex and Gender InformationValueDate RecordedSex Assigned at Kpovwf6412/26/2018 8:37 PM CSTLegal YlaVhtzol31/02/2017 2:43 PM CSTGender Identity Ljqxls4612/26/2018 8:37 PM CSTSexual OrientationChoose not to jqbyvaku74/17/2021 3:46 PM CDTdocumented as of this encounter Plan of Treatment DateTypeDepartmentCare Team (Latest Contact Info)Gqbpwjtkrvq51/29/2025 9:00 AM CSTOffice Visit Department of Obstetrics and Gynecology in [place], [place] [address] [place] [phone] Alice Linares M.D. [address] [place] [phone] 11/17/2025 11:00 AM CSTTelemedicine Department of Palliative Care in [place], [place] [address] [place] [phone] Yary Landa D.O. [address] [place] [phone] 12/04/2025 1:30 PM CSTClinical Communication Virtual Review in [place], [place] [address] [place] [address] 12/07/2025 8:10 AM CSTLab Department of Laboratory Medicine and Pathology, [facility] in [place], [place] [address] [place] [phone] Jessica Rousseau M.B.B.S. [address] [place] [phone] 12/07/2025 9:15 AM CSTAppointment Outpatient Procedure Center in [place], [place] [address] [place] [phone] Jessica Rousseau M.B.B.S. [address] [place] [phone] 12/07/2025 11:00 AM CSTDiagnostic Division of Pulmonary Medicine in [place], [place] [address] [place] [phone] Jessica Rousseau M.B.B.S. [address] [place] [phone] 12/07/2025 1:00 PM CSTOffice Visit [facility] in [place], [place] [address] [place] [phone] Jessica Rousseau M.B.B.S. [address] [place] [phone] 12/07/2025 1:30 PM CSTNurse Only [facility] Transplantation and Clinical Regeneration in [place], [place] [address] [place] [address] Jessica Rousseau M.B.B.S. [address] [place] [phone] 12/07/2025 2:00 PM CSTOffice Visit [facility] Transplantation and Clinical Regeneration in [place], [place] [address] [place] [phone] Jessica Rousseau M.B.B.S. [address] [place] [phone] 12/07/2025 3:00 PM CSTOffice Visit Department of Palliative Care in [place], [place] [address] [place] [phone] Martine Pardo B.M.B.S., B.M., B.Ch. 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 [address] [place] [address] [place] [phone] PCP - GeneralFamily Medicine04/25/2312documented as of this encounter
== END 2025-11-05 04:29 | disposition home or self-care (01) ==
LOC: ED 03:22
PROVIDERS: Emergency Provider Family Medicine; PCP Registered Nurse
DX: R10.32 Left lower quadrant pain (principal); R10.31 Right lower quadrant pain; G89.29 Other chronic pain
CPT/HCPCS: 96372; 99281; 99284; J1885

== ENCOUNTER 2025-11-06 13:30 | Emergency (ER) | payer MEDICARE, BC, SELFPAY ==
--- OUTSIDE RECORDS SUMMARY | 2025-11-06 03:43 | XMS_ITS | Continuity of Care Document ---
Author Organization [facility] Address [address] [address] [place] [address] Phone Care Team Providers Care Equipment Inspector Name Role Phone Douglas Schmitz MD, Jose Carlos Acharya Advance Directives Directive Yes / No Effective Date File Name No Information Encounters Encounter Description Practice Location Reason(s) For Visit Diagnoses Date Provider Providers Copied on Encounter [facility], [address] [address], [place], [place], [id number], [place] tel:[phone] [facility] No Information Douglas Branch. [address] [facility], [facility] [address], [place], [place], [id number], [place]. tel:[phone] Family History Family Member Type Diagnosis Age At Onset No Information Payers Payer name Insurance type Covered alliance party ID Authoriza tion(s) No Information Social History Type Description Quantity Date Captured Comments Sex Female Smoking Status No Information Chief Complaint And Reason For Visit No Information Reason For Referral Reason For Referral No Information Plan Of Treatment Date Type Action Status Appointment Radha Martinez BOOKED History Of Present Illness Encounter Date Complaint History Of Prese nt Illness No Information Functional Status Date Functional Assessmen t No Information Instructions Date Instruction Additional Infor mation No Information Assessments Type Assessment Date No Information Patient Care Teams Name Effective Dates (start - stop) Status Members No Information
--- OUTSIDE RECORDS SUMMARY | 2025-11-06 03:43 | XMS_ITS | Continuity of Care Document ---
Author Organization [facility] Address [address] [address] [place] [address] Phone Care Team Providers Care Manager Process Excellence Name Role Phone Douglas Schmitz MD, Jose Carlos Acharya Advance Directives Directive Yes / No Effective Date File Name No Information Encounters Encounter Description Practice Location Reason(s) For Visit Diagnoses Date Provider Providers Copied on Encounter [facility], [address] [address], [place], [place], [id number], [place] tel:[phone] [facility] No Information Douglas Branch. [address] [facility], [facility] [address], [place], [place], [id number], [place]. tel:[phone] Family History Family Member Type Diagnosis Age At Onset No Information Payers Payer name Insurance type Covered libertarian ID Authoriza tion(s) No Information Social History [...]
--- OUTSIDE RECORDS SUMMARY | 2025-11-06 13:32 | XMS_ITS | Clinical Summary ---
Author Organization [facility] Address [address] [place] [address] Care Team Providers Care Dried Fruit Washer Name Role Phone Antoinette Palacio PhD, LP Unavailable [phone] Shweta Graciakim Huber COOLING PIPE INSPECTOR Unavailable [phone] Unavailable [phone] Staff, Other Clinical Unavailable Unavailabl e Ermelinda Pierre MD Primary Care Prov ider Allergies Active AllergyReactionsCriticalityNoted HfbiYfykkkyvHlpnjctjnwkBtcbd20/13/2017 GrapefruitOther - Describe In Comment Field06/28/2021 Interaction with Tasigna medication Grapefruit ExtractOther - Describe In Comment Field06/28/2021 Interaction with Tasigna medication Interaction with Tasigna medication TnfophmcvHtmyr98/13/2017 Medications MedicationSigDispense QuantityRefillsLast FilledStart DateEnd DateStatus dasatinib [...] hours if needed for Nausea/Vomiting. 30 Tablet 07/25/2023ctive ondansetron (ZOFRAN ODT) 4 mg disintegrating tablet [...] tablet Take 2 mg by mouth at bedtime.5Active melatonin 5 mg tablet Take 5-10 mg by mouth once daily in the evening.Active penicillin v potassium (PEN-VEE K) 500 mg tablet Take 500 mg by mouth two times daily before meals.5Active posaconazole (NOXAFIL) 100 mg delayed release tablet Take 300 mg by mouth once daily with a meal.5Active trimethoprim-sulfamethoxazole 80-400 mg tab Take 1 Tablet by mouth once daily.5ActiveHospital, Clinic, or Other Facility Administered MedicationOrdered DoseRouteFrequencyStart DateEnd Date Status ketorolac 30 mg injection (TORADOL) Indications:severe pain30 mgIMONE TIMEEnded Active Problems ProblemNoted DateDiagnosed DateMalignant rgbmypxd22/18/2025 Overview (11/05/2025): AI Summary: 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 On 12/10/2024, the patient received a bone marrow transplant. 06/03/25: Alb 4.3 g/dL 06/03/25: WBC 4.1 x10(9)/L 06/03/25: Hgb 12.7 g/dL 06/03/25: K 4.1 mmol/L 06/03/25: Plt 213 x10(9)/L 06/03/25: AST 21 U/L 06/03/25: ALT 27 U/L 06/03/25: LDH 152 U/L 06/03/25: Total Protein 6.8 g/dL 06/03/25: Ca 9.1 mg/dL 01/03/21: Lipase 20 U/L 06/03/25: Cr 1.01 mg/dL 06/03/25: GFR 74 mL/min/BSA On meds: dasatinib Recent encounter dx: 06/05/25: Clinical Communication - [facility] [place], [place] (from [facility]) 06/01/25: Hospital Encounter - Division of Gastroenterology in [place], [place], Gastroenterology and Hepatology (from [facility]) 05/29/25: Orders Only - [facility], [facility], [facility] Floor, Transplant Blood and Marrow (from [facility]) 05/20/25: Office Visit - Transplant Blood and Marrow, [facility] in [place], [place] (from [facility]) 05/17/25: Orders Only - [facility], [facility], [facility] (from [facility]) Recent studies: 12/03/24: DX Chest 1 View by Stacey Broussard M.D., M.S. (from [facility]) ... [-] Chronic Myeloid Leukemia. 07/18/19: ct neck soft tissue with iv contrast by Shukri Perera P.A.-C., M.SKatalina (from [facility]) ... [+] HISTORY: Patient has history of chronic myeloid leukemia, status post multiple chemotherapyregimens, most recently initiated on dasatinib on 03/09/19. Recent notes: 06/05/25: Progress Notes by Felicia Weathers NP ... [-] Constitutional: Leukemia diagnosed in 2019 , changes to CML meds ... [+] Other diagnosis impacting mental health: Leukemia diagnosed in 2019 ... [+] Leukemia (CML) was diagnosed in November,; she received a Bone Marrow Transplant on 12/10/24; She has been most recently seen by [facility]'s transplant psychiatry team ([phone]), Abilify was started around Oct, 2024 for augmentation for depression and this has been helpful 06/01/25: OR Notes - Anesthesia Postprocedure Evaluation by Isaias Tolbert APRN, TANA (from [facility]) ... [+] Leukemia Myeloid Chronic BCR/ABL Positive Not Having Achieved Remission (HCC) 06/01/25: OR Notes - Anesthesia Preprocedure Evaluation by Bri Valenzuela M.D. (from [facility]) ... [+] Leukemia Myeloid Chronic BCR/ABL Positive Not Having Achieved Remission (HCC) [C92.10] 05/29/25: Consult Notes - Consults by Jennyfer Guidry M.S. (from [facility]) ... [-] Leukemia 05/28/25: H&P Notes - H&P by Renita Potts APRN, C.N.P., D.N.P. (from [facility]) ... [+] Following, this another BM biopsy was repeated which showed chronic phase CML, blast% was 1. ... 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(not detected on most recent testing), NGS demonstrated dual ASXL1 mutation, TKI resistant (Imatinib, Dasatinib, Nilotinib) History of peripheral stem cell msierxmhjv24/03/2025Encounters for administrative gzclqwim55/14/2025Encounters for administrative purposes 10/22/2024Obesity (BMI 30.0-34.9)09/20/2022Insulin /02/2022besity, Class II, BMI 35-39.9007/07/2022Weight gain07/07/2022Eating rszooctu11/19/2022 Chronic mixed headache losgmkwz90/30/2019Localized enlarged lymph nodes 04/03/2019Pain in joint03/06/2019Chronic myeloid djkiiqpv25/23/2019Controlled substance agreement qwwsgi4104/09/2017 Overview (03/19/2018): Signed 11/20/2016 Dr Mady Yanez Psychiatry Relationship aaaowjqs71/23/1198Qejuy55/23/2017Major depressive disorder, recurrent episode, cbxjiwpj35/28/2016Generalized anxiety hucssyss43/19/2015 Adjustment disorder with anxious mood01/07/20150234Ewyqsoisapqvw77/16/2013Tension headache Resolved Problems ProblemNoted DateDiagnosed DateResolved DateDepression, major, recurrent, jihkmimi04Major depressive disorder, recurrent, severe without psychotic qlugcacj45Depression, kslloytdrp34/21/2011 02/08/2017Supervision of normal first ijqaxowpc60ttention deficit disorder without mention of erazuntcacdud37Major depressive disorder, recurrent episode, ahbshfyzduj30 Encounters DateTypeDepartmentCare VypiLusfbpkblld83/19/2025Nurse Triage [facility] [address] [place] [address] Ermelinda Pierre MD Abdominal Pain; Headache; Chest Pain11/05/2025 9:20 AM CSTOffice Visit [facility] [address] [place] [address] Osiris Mann PA Concerns (x2 weeks lower LT and RT abdominal pain, nausea )11/05/2025Telephone [facility] [place] [address] [place] [address] Oncology, [facility] Referral (/History of peripheral stem cell transplant (HC) [Z94.84]/Malignant neoplasm (HC) [C80.1]/Chronic myeloid leukemia (HC) [C92.10]//)11/05/2025Travel 11/04/2025Nurse Triage [facility] [address] [place] [address] Ermelinda Pierre MD Abdominal Pain10/29/2025 9:00 AM TOBACCO BALER - 10/29/2025 11:59 PM CSTHospital Encounter [address] [address] Generalized anxiety disorder; Major depressive disorder, recurrent episode, moderate (HC)10/29/2025Travel 10/28/2025Nurse Triage [facility] [address] [place] [address] Ermelinda Pierre MD Abdominal Pain10/27/2025Telephone [address] [address] Antonina Donovan [facility] DT10/27/2025Telephone [address] [address] Belkis Weathers (This clinical writer spoke with the patient, who is currently in urgent care. Spoke about attendance and discharging to use day treatment benefit when healthier or a referral to [facility].)10/27/2025Nurse Triage [facility] [address] [place] [address] Ermelinda Pierre MD Abdominal Pain10/22/2025Telephone [address] [address] Irina Hazel Iincimrclim43/03/2025 9:00 AM TOBACCO BALER - 10/21/2025 11:59 PM CSTHospital Encounter [address] [address] Generalized anxiety disorder; Major depressive disorder, recurrent episode, moderate (HC)10/20/2025 9:00 AM TOBACCO BALER - 10/20/2025 11:59 PM CSTHospital Encounter [facility] [address] [place] [address] Generalized anxiety disorder; Major depressive disorder, recurrent episode, moderate (HC)10/20/2025Travel 10/14/2025 8:58 AM TOBACCO BALER - 10/14/2025 11:59 PM CSTHospital Encounter [facility] [address] [facility] [place] [address] Generalized anxiety disorder; Major depressive disorder, recurrent episode, moderate (HC)10/14/2025Travel 10/08/2025 8:56 AM TOBACCO BALER - 10/08/2025 11:59 PM CSTHospital Encounter [facility] [address] [facility] [place] [address] Generalized anxiety disorder; Major depressive disorder, recurrent episode, moderate (HC)10/08/2025Travel 10/07/2025 8:57 AM TOBACCO BALER - 10/07/2025 11:59 PM CSTHospital Encounter [facility] [address] [facility] [place] [address] Generalized anxiety disorder; Major depressive disorder, recurrent episode, moderate (HC)10/06/2025 8:59 AM TOBACCO BALER - 10/06/2025 11:59 PM CSTHospital Encounter [facility] [address] [facility] [place] [address] Generalized anxiety disorder; Major depressive disorder, recurrent episode, moderate (HC)10/06/2025Telephone [facility] [address] [place] [address] Iris Victor, WAFER POLISHING LEAD WORKER Care Coordination (Re-Engagement )10/06/20254831Jciwus16/13/2025Telephone [facility] [address] [facility] [place] [address] Irina Hazel treatment group09/30/2025 8:50 AM TOBACCO BALER - 09/30/2025 11:59 PM CSTHospital Encounter [facility] [address] [facility] [place] [address] Generalized anxiety disorder; Major depressive disorder, recurrent episode, moderate (HC)09/29/2025 8:55 AM TOBACCO BALER - 09/29/2025 11:59 PM CSTHospital Encounter [facility] [address] [place] [address] Generalized anxiety disorder; Major depressive disorder, recurrent episode, moderate (HC)09/29/2025Travel 09/24/2025 9:00 AM TOBACCO BALER - 09/24/2025 11:59 PM CSTHospital Encounter [facility] [address] [place] [address] Generalized anxiety disorder; Major depressive disorder, recurrent episode, moderate (HC)09/23/2025 8:56 AM TOBACCO BALER - 09/23/2025 11:59 PM CSTHospital Encounter [facility] [address] [place] [address] Generalized anxiety disorder; Major depressive disorder, recurrent episode, moderate (HC)09/23/2025Travel 09/22/2025Telephone [facility] [address] [facility] [place] [address] Irina Hazel treatment group09/17/2025 8:55 AM CDT - 09/17/2025 11:59 PM CDTHospital Encounter [facility] [address] [place] [address] Generalized anxiety disorder; Major depressive disorder, recurrent episode, moderate (HC)09/17/2025Travel 09/16/2025 8:55 AM CDT - 09/16/2025 11:59 PM CDTHospital Encounter [facility] [address] [place] [address] Generalized anxiety disorder; Major depressive disorder, recurrent episode, moderate (HC)09/15/2025 8:57 AM CDT - 09/15/2025 11:59 PM CDTHospital Encounter [facility] [address] [facility] [place] [address] Generalized anxiety disorder; Major depressive disorder, recurrent episode, moderate (HC)09/15/2025Travel 09/11/2025 10:30 AM CDTPhone Office Visit [facility] [address] [place] [address] Renita Pichardo PsyD, FIDENCIO Lxyxkdqtjukrz63/23/2025 8:58 AM CDT - 09/10/2025 11:59 PM CDTHospital Encounter [facility] [address] [facility] [place] [address] Generalized anxiety disorder; Major depressive disorder, recurrent episode, moderate (HC)09/09/2025 8:57 AM CDT - 09/09/2025 11:59 PM CDTHospital Encounter [facility] [address] [facility] [place] [address] Generalized anxiety disorder; Major depressive disorder, recurrent episode, moderate (HC)09/09/2025Travel 09/08/2025Telephone [facility] [address] [facility] [place] [address] Ivy Garcia RN [facility] DT09/03/2025 8:54 AM CDT - 09/03/2025 11:59 PM CDTHospital Encounter [facility] [address] [facility] [place] [address] Generalized anxiety disorder; Major depressive disorder, recurrent episode, moderate (HC)09/03/2025Travel 09/02/2025 8:57 AM CDT - 09/02/2025 11:59 PM CDTHospital Encounter [facility] [address] [facility] [place] [address] Generalized anxiety disorder; Major depressive disorder, recurrent episode, moderate (HC)09/01/2025 9:00 AM CDT - 09/01/2025 11:59 PM CDTHospital Encounter [facility] [address] [facility] [place] [address] Generalized anxiety disorder; Major depressive disorder, recurrent episode, moderate (HC)09/01/2025Travel 08/27/2025 9:00 AM CDT - 08/27/2025 11:59 PM CDTHospital Encounter [facility] [address] [place] [address] Generalized anxiety disorder; Major depressive disorder, recurrent episode, moderate (HC)08/27/2025Telephone [facility] [address] [place] [address] Antonina Donovan [facility] DT08/27/20251472Umiiee85/08/2025 9:00 AM CDT - 08/26/2025 11:59 PM CDTHospital Encounter [facility] [address] [place] [address] Generalized anxiety disorder; Major depressive disorder, recurrent episode, moderate (HC)08/25/2025 9:00 AM CDT - 08/25/2025 11:59 PM CDTHospital Encounter [facility] [address] [place] [address] Generalized anxiety disorder; Major depressive disorder, recurrent episode, moderate (HC)08/25/2025Travel 08/18/2025 11:20 AM CDTOffice Visit [facility] [address] [place] [address] Fercho Fragoso MD Nausea (Body aches, sob and chills x 1 week and fatigue )08/17/2025 12:26 PM CDT - 08/17/2025 11:59 PM CDTHospital Encounter [facility] [address] [place] [address] Adjustment disorder with anxious mood (Primary Dx); Generalized anxiety disorder; Major depressive disorder, recurrent episode, moderate (HC)08/17/2025Travel 08/14/20254904Yhycfk95/25/2025Telephone [facility] [address] [place] [address] Pcp, No Appointment Xunmbbry82/24/2025Telephone [facility] [address] [place] [address] Renita Pichardo, PsyD, LP Late Cancel Appointmentfrom Last 3 Months Immunizations ImmunizationAdministration DatesNext DueCOVID-19 vaccine (Moderna 100mcg/0.5mL) PF, MDV16116TDCI-KJL-WUO10/25/2025,08/11/2025,06/10/2025HEPATITIS B (ADULT) RECOMBINANT ADJ. (HEPLISAV-B 0.5ML)08/11/2025,06/10/2025Hepatitis A (Adult) 06/10/2025Hepatitis B (Adult)03/07/2001,10/31/2000,09/19/2000Hepatitis B (Peds) 02/19/2001,10/31/2000,09/19/2000Human Papilloma Virus Klfzjou5311/08/2007, 06/27/2007,04/26/2007Influenza Virus, Szcliubaxht52/15/2012,08/14/2011, 10/19/2003,09/17/2002,01/22/2002Influenza, IIV3 (Age 6-35 mos)08/14/2011 Influenza, IIV3 (Age >=3 years)09/02/2012,08/14/2011,10/19/2003,09/17/2002, 01/22/2002Influenza, HEK918MENINGOCOCCAL VACCINE (MENQUADFI 0.5ML) 2YO+ POLYSACCHARIDE PF08/11/2025,06/10/2025MMR04/25/2001,03/07/2001Meningococcal Vaccine (Menactra)04/26/2007Pneumococcal Conj 20-valent (Prevnar 20)10/13/2025, 08/11/2025,06/10/2025Td (Age >=7 Years)07/10/2003Tdap1Zoster (Shingrix- RZV, recombinant)08/11/2025,06/10/2025 Family History Medical HistoryRelationNameCommentsCystic fibrosisBrotherHyperlipidemiaFather HypertensionFatherEndometriosisMaternal AuntCoronary artery diseaseMaternal GrandfatherDiabetesMaternal GrandfatherOtherMaternal Grandfathersubstance abuse dependenceCancer-breastMaternal GrandmotherObesityMaternal GrandmotherOther Maternal Grandmothersubstance abuse dependenceAnxiety disorderMotherDepression MotherEndometriosisMotherHyperlipidemiaMotherHypertensionMotherObesityMother EndometriosisOther 1maternal cousinsCancer-breastOther 2maternal great grandma Cancer-breastOther 3maternal cousinCancer-breastPaternal AuntDementiaPaternal SnlpucddlouCqhxdlbuBlvjUzekcaKltipfygYdqgverHwxscu0WlfcdmXrtmbxja (Age 50) motorcycle accidentMaternal AuntMaternal GrandfatherDeceased (Age 81)Maternal GrandmotherDeceased (Age 63)BREAST CXMotherAliveOther 1Other 2Other 3Paternal AuntPaternal GrandfatherDeceasedPaternal GrandmotherAlive Social History Tobacco UseTypesPacks/DayYears UsedDateSmoking Tobacco: NeverSmokeless Tobacco: Never Tobacco Cessation:Counseling Given: Not Answered Alcohol UseStandard Drinks/WeekCommentsNo0 (1 standard drink = 0.6 oz pure alcohol)PHQ-2AnswerDate RecordedPHQ-2 TOTAL [id number] Connections AnswerDate RecordedFrequency of Communication with Friends and Pqtprc035 Alcohol UseAnswerDate RecordedHow often do you have a drink containing alcohol?0 11/05/2025How many drinks containing alcohol do you have on a typical day when you are drinking?How often do you have five or more drinks on one occasion?Financial Resource StrainAnswerDate RecordedDifficulty of Paying Living Otsstsnz095ifficulty of Paying Living Xuakxajb660/26/2022 Food InsecurityAnswerDate RecordedWorried About Running Out of Food in the Last Iebg071Transportation NeedsAnswerDate RecordedLack of Transportation (Medical)Housing StabilityAnswerDate RecordedUnable to Pay for Housing in the Last Skhq511Interpersonal SafetyAnswerDate RecordedAre you being hit, kicked, pushed or yelled at (see row info)?No11/21/2023 Interpersonal Safety Abuse 12 - 18Not on file11/21/2023Interpersonal Safety Ambulatory VulnerabilityNot on file11/21/2023CommentsNoSex and Gender InformationValueDate RecordedSex Assigned at BirthNot on fileLegal SexFemale 12/02/2012 5:23 AM CSTGender IdentityNot on fileSexual OrientationNot on file OccupationIndustryJob Start DateJob End DateK-martNot on fileNot on fileNot on file Obstetrics History GravidaParaTermPretermABIABSABEctopicMultipleLivingLive [id number] OutcomeGATotal LaborLabor/2nd/9bkEolagzKduPkgcGaasTGZLscL1Q6EadtInweSyawpxzFztiq Comments:System Generated. Please review and update details.IAB Last Filed Vital Signs Vital SignReadingTime TakenCommentsBlood Iqtyuijf236/8411/05/2025 9:27 AM TOBACCO BALER Pgoih14782/18/2025 9:27 AM DWSYecszaxsyxy80.8 ??C (98.2 ??F)08/18/2025 11:44 AM CDTRespiratory Jwqd259311/21/2023 9:09 AM CSTOxygen Gvwjzfrrpe12%11/05/2025 9:27 AM CSTInhaled Oxygen Concentration--Kmphnx269 kg (236 lb)11/05/2025 9:27 AM TOBACCO BALER Wgksym687.7 cm (5' 8)11/05/2025 9:27 AM CSTBody Mass Index35.8811/05/2025 9:27 AM TOBACCO BALER Plan of Treatment DateTypeDepartmentCare Team (Latest Contact Info)Djouncntvpr90/26/2025 3:05 PM CSTOffice Visit [facility] [address] [place] [address] Ermelinda Pierre MD [address] [place] [address] 11/23/2025 11:05 AM CSTOffice Visit [facility] [address] [place] [address] Ermelinda Pierre MD [address] [place] [address] Health MaintenanceDue DateLast DoneCommentsTetanus vqkeorq37, 07/10/2003Pap test for age 21-65 (Verified in Care Everywhere or Patient Record), 11/25/2013, 03/03/2011, Additional history exists COVID-19 vaccine series ( season), 03/30/2021, 03/02/2021Influenza Vaccine (#1), 09/02/2012, 09/02/2012, Additional history existsDepression screening for age 12+, 08/18/2025, 10/02/2024, Additional history existsBMI (ht and wt on same day) for age 18+18, 08/18/2025, 06/23/2024, Additional history exists HPV series for age 9-03Rmdnoxflq75/21/2007, 06/27/2007, 04/26/2007HIV for age 15-15Cqraoavxp60/07/2011Hepatitis C screening for age 18-71Jmbdqylqk24/14/2023 Hepatitis B series for 19+Xmhvcbotj36/23/2025, 06/10/2025, 03/07/2001, Additional history existsPneumococcal series for age 6-72Swzkkfsph66/25/2025, 08/11/2025, 06/10/2025 Procedures Procedure NamePriorityDate/TimeAssociated DiagnosisCommentsSCAN CORRESP-IMAGING 11/06/2025 7:40 AM TOBACCO BALER SCAN CORRESP-OPKFZNS4511/06/2025 7:40 AM TOBACCO BALER SCAN CORRESP-THMTZLE6111/06/2025 7:40 AM TOBACCO BALER SCAN CORRESP-ZPJQFJV8611/06/2025 7:40 AM TOBACCO BALER SCAN CORRESP-VKKKRDTVLRM38/19/2025 7:40 AM TOBACCO BALER SCAN CORRESP-RKFBVBIVOQN86/19/2025 7:40 AM TOBACCO BALER URINALYSIS VPWQBRXUZWRLvgwuvn81/18/2025 10:25 AM TOBACCO BALER Urinary tract infection without hematuria, site unspecified URINALYSIS MACROSCOPIC - [facility] ONLY POC DIP ([facility])Infgbdw5911/05/2025 10:25 AM TOBACCO BALER Urinary tract infection without hematuria, site unspecified RED CELL GMONMDOGFUWXRL30/30/2025 12:35 PM CDT Myalgia PLATELET FIPYOUZKYUIE07/30/2025 12:35 PM CDT Myalgia MANUAL DWDLKUUJYZLCSPIO48/30/2025 12:35 PM CDT Myalgia CBC WITH AUTO QHZZHHAVGJEQJBGL36/30/2025 12:35 PM CDT Myalgia C-REACTIVE TAMLIJJBIZS66/30/2025 12:35 PM CDT Myalgia CBC WITH AUTO AGCFQJOKDTNQRQUT95/30/2025 12:35 PM CDT Myalgia LXINfxrwkb70/30/2025 12:35 PM CDT Myalgia ANTI IALRxvjrcs34/14/2023 1:57 PM CDT 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 Authorizing ProviderResult TypeResult StatusOther Clinical StaffOTHERFinal Result * SCAN CORRESP-DIAGNOSTICS (11/06/2025 7:40 AM TOBACCO BALER) Narrative 11/06/2025 7:40 AM TOBACCO BALER Ordered by an unspecified provider. Authorizing ProviderResult TypeResult StatusOther Clinical StaffOTHERFinal Result * SCAN CORRESP-IMAGING (11/06/2025 7:40 AM TOBACCO BALER) Only the most recent of4 resultswithin the time period is included. Anatomical RegionLateralityModalityOther Narrative 11/06/2025 7:40 AM TOBACCO BALER Ordered by an unspecified provider. Authorizing ProviderResult TypeResult StatusOther Clinical StaffOTHERFinal Result * (ABNORMAL) UA Dip [[id number]] (11/05/2025 10:25 AM TOBACCO BALER)ComponentValueRef Range Test MethodAnalysis TimePerformed AtPathologist SignatureBILIRUBINNEGATIVE MIOQBHJV07/18/2025 10:39 AM [facility] UNITCOLORYELLOW UBVBYU8211/05/2025 10:39 AM [facility] UNITAPPEARANCE ITMXRKUEQL67/18/2025 10:39 AM [facility]ALTHPECIFIC GRAVITY> OR = 1.0301.001 - 1.2170711/05/2025 10:39 AM [facility] UNITComment: Specific [place] values resulted are outside the analytical measurement range of this device. Recommend repeat/additional testing as clinically indicated. PH5.05.0 - 8. 10:39 AM [facility] UNITGLUCOSE QIVSEZNIGDSYTGYF44/18/2025 10:39 AM [facility] KETONESTRACE(A)IVVUDZYU30/18/2025 10:39 AM [facility] UNITOCCULT HWHFPGPQGCSXYACQFTQTD11/18/2025 10:39 AM [facility]ITPROTEINNEGATIVENEGATIVE11/05/2025 10:39 AM [facility] UNITNITRITENEGATIVENEGATIVE11/05/2025 10:39 AM [facility] UNITLEUKOCYTE EFGYVEMYSXANIWYHIIPXSQHP93/18/2025 10:39 AM CSTROG[facility] CHEYENNEpecimen (Source)Anatomical Location / LateralityCollection Method / VolumeCollection TimeReceived TimeUrineURINE SPECIMEN / UnknownNon-Blood / Klilysj6711/05/2025 10:25 AM CST11/05/2025 10:25 AM TOBACCO BALER Narrative Authorizing ProviderResult TypeResult StatusNicole Twyla Mann PAURINEFinal ResultPerforming OrganizationAddressCity/State/ZIP CodePhone Number [facility] [address] [place] [address], [facility] [address] [place] [address], [place] * [employer]A Micro [81859.1] (11/05/2025 10:25 AM TOBACCO BALER)ComponentValueRef RangeTest Method Analysis TimePerformed AtPathologist SignatureWBC UA0-5< OR = 5 /HPF11/06/2025 4:09 AM CSTQUEST DIAGNOSTICSRBC UA0-2< OR = 2 /HPF11/06/2025 4:09 AM CSTQUEST DIAGNOSTICSBACTERIA UANONE SEENNONE SEEN /HPF11/06/2025 4:09 AM CSTQUEST DIAGNOSTICSHYALINE CASTNONE SEENNONE SEEN /LPF101/07/2025 4:09 AM CSTQUEST DIAGNOSTICSCALCIUM OXALATE CRYSTALSFEWNONE OR FEW /HPF11/06/2025 4:09 AM TOBACCO BALER [facility]QUAM[facility] EPITHELIAL CELLS UA0-5< OR = 5 /HPF11/06/2025 4:09 AM CSTQUEST DIAGNOSTICSAMORPHOUS SEDIMENT UAFEWNONE OR FEW /HPF11/06/2025 4:09 AM CSTQUEST DIAGNOSTICSNOTE UASEE NOTE11/06/2025 4:09 AM CSTQUEST DIAGNOSTICS Comment: This urine was analyzed for the presence of WBC, RBC, bacteria, casts, and other formed elements. Only those elements seen were reported. Specimen (Source)Anatomical Location / LateralityCollection Method / Volume Collection TimeReceived TimeUrineURINE SPECIMEN / UnknownNon-Blood / Unknown 11/05/2025 10:25 AM CST11/05/2025 10:25 AM TOBACCO BALER Narrative Authorizing ProviderResult TypeResult StatusNicole Twyla Carmenvidya BALDOURINEFinal ResultPerforming OrganizationAddressCity/State/ZIP CodePhone Number [facility] [id number] [place] [address], * (ABNORMAL) CBC WITH AUTO DIFFERENTIAL (08/18/2025 12:35 PM CDT)ComponentValue Ref RangeTest MethodAnalysis TimePerformed AtPathologist SignatureWHITE BLOOD COUNT3.5(L)4.5 - 11.0 thou/cu mm08/18/2025 2:12 PM [facility] LABORATORYRED BLOOD COUNT4.344.00 - 5.20 mil/cu mm08/18/2025 2:12 PM CDT [facility] HZDOQQZONLZIAVABNVBD80.7(L)12.0 - 16.0 g/dL08/18/2025 2:12 PM [facility] IOGHPHOHCBBHWTODVGLS95.033.0 - 51.0 % 08/18/2025 2:12 PM [facility] AUDSXLFTTLKWF7553 - 100 fL 08/18/2025 2:12 PM [facility] QHQTXGRPGYLRM86.026.0 - 34.0 pg 08/18/2025 2:12 PM [facility] TFQCHTIWZJSBVW86.532.0 - 36.0 g/dL08/18/2025 2:12 PM [facility] NVQBXRDFMGJKV40.911.5 - 15.5 %08/18/2025 2:12 PM [facility] LABORATORYPLATELET COUNT 141511 - 440 thou/cu mm08/18/2025 2:12 PM [facility] LABORATORYMPV8.26.5 - 11.0 fL08/18/2025 2:12 PM [facility] LABORATORYSpecimen (Source)Anatomical Location / LateralityCollection Method / VolumeCollection TimeReceived TimeBloodBLOOD SPECIMEN / UnknownQuest Collect / Uxkcxhz3708/18/2025 12:35 PM CDT08/18/2025 12:35 PM CDT Narrative Authorizing ProviderResult TypeResult StatusFercho Fragoso MDHEMATOLOGY Final ResultPerforming OrganizationAddressCity/State/ZIP CodePhone Number [facility] [address] [place] [address] * (ABNORMAL) RED CELL MORPHOLOGY (08/18/2025 12:35 PM CDT)ComponentValueRef RangeTest MethodAnalysis TimePerformed AtPathologist SignatureELLIPTOCYTESFew 08/18/2025 2:11 PM [facility] LABORATORYPOLYCHROMASIASlight 08/18/2025 2:11 PM [facility] LABORATORYRBC COMMENTPresent(A) RBC morphology appears normal, RBC morphology within normal limits for newborns.08/18/2025 2:11 PM [facility] LABORATORYSpecimen (Source)Anatomical Location / LateralityCollection Method / VolumeCollection TimeReceived TimeBloodBLOOD SPECIMEN / UnknownQuest Collect / Unknown 08/18/2025 12:35 PM CDT08/18/2025 12:35 PM CDT Narrative Authorizing ProviderResult TypeResult StatusFercho Fragoso MDHEMATOLOGY Final ResultPerforming OrganizationAddressCity/State/ZIP CodePhone Number [facility] [address] [place] [address] * PLATELET ESTIMATE (08/18/2025 12:35 PM CDT)ComponentValueRef RangeTest Method Analysis TimePerformed AtPathologist SignaturePLATELET ESTIMATEAdequate Adequate, No thekfpjg76/30/2025 2:11 PM [facility] Specimen (Source)Anatomical Location / LateralityCollection Method / Volume Collection TimeReceived TimeBloodBLOOD SPECIMEN / UnknownQuest Collect / Smcvxsq7508/18/2025 12:35 PM CDT08/18/2025 12:35 PM CDT Narrative Authorizing ProviderResult TypeResult StatusFercho Fragoso MDHEMATOLOGY Final ResultPerforming OrganizationAddressCity/State/ZIP CodePhone Number [facility] [address] [place] [address] * (ABNORMAL) MANUAL DIFFERENTIAL (08/18/2025 12:35 PM CDT)ComponentValueRef RangeTest MethodAnalysis TimePerformed AtPathologist Signature% NEUTROPHILS 66.0%08/18/2025 2:11 PM [facility]% LYMPHOCYTES 21.0%08/18/2025 2:11 PM [facility]% MONOCYTES5.0% 08/18/2025 2:11 PM [facility]% EOSINOPHILS5.0% 08/18/2025 2:11 PM [facility]% BASOPHILS1.0% 08/18/2025 2:11 PM [facility]% METAMYELOCYTES2.0 (H)<0.1 %08/18/2025 2:11 PM [facility] LABORATORYNEUTROPHILS ABSOLUTE2.31.7 - 7.0 thou/cu mm08/18/2025 2:11 PM [facility] LABORATORYLYMPHOCYTES ABSOLUTE0.7(L)0.9 - 2.9 thou/cu 08/18/2025 2:11 PM CDT [facility] LABORATORYMONOCYTES ABSOLUTE0.2<0.9 thou/cu mm 08/18/2025 2:11 PM [facility] LABORATORYEOSINOPHILS ABSOLUTE 0.2<0.5 thou/cu 08/18/2025 2:11 PM [facility] BASOPHILS ABSOLUTE0.0<0.3 thou/cu mm08/18/2025 2:11 PM [facility] LABORATORYABSOLUTE METAMYELOCYTES0.1(H)<=0.0 thou/cu 08/18/2025 2:11 PM [facility] LABORATORYSpecimen (Source)Anatomical Location / LateralityCollection Method / VolumeCollection TimeReceived TimeBloodBLOOD SPECIMEN / UnknownQuest Collect / Psekehl5808/18/2025 12:35 PM CDT08/18/2025 12:35 PM CDT Narrative Authorizing ProviderResult TypeResult StatusGeorge Néstor Fragoso MDHEMATOLOGY Final ResultPerforming OrganizationAddressCity/State/ZIP CodePhone Number [facility] [address] [place] [address] * TSH (08/18/2025 12:35 PM CDT)ComponentValueRef RangeTest [...] CDT Narrative Authorizing ProviderResult TypeResult StatusGehernandez Fragoso [facility] CITYHEMISTRY Final ResultPerforming OrganizationAddressCity/State/ZIP CodePhone Number [facility] [address] [phone], * C-REACTIVE PROTEIN (08/18/2025 12:35 PM CDT)ComponentValueRef RangeTest Method Analysis TimePerformed AtPathologist SignatureC-REACTIVE PROTEIN<0.3<0.5 mg/dL 08/18/2025 1:29 PM [facility] LABORATORYSpecimen (Source) Anatomical Location / LateralityCollection Method / VolumeCollection Time Received TimeBloodBLOOD SPECIMEN / UnknownQuest Collect / Mwmjuet7808/18/2025 12:35 PM CDT08/18/2025 12:35 PM CDT Narrative Authorizing ProviderResult TypeResult StatusFercho Fragoso [facility] CITY[facility]MISTR[facility] Final ResultPerforming OrganizationAddressCity/State/ZIP CodePhone Number [facility] [address] [place] [address] * ANTI HCV (08/02/2023 1:57 PM CDT)ComponentValueRef RangeTest MethodAnalysis TimePerformed AtPathologist SignatureHEPATITIS C ANTIBODYNon-Reactive Non-Hsoxnvoc33/15/2023 3:36 PM CDTUNITED HOSPITAL LABORATORYComment:Please note, per www.CDC.gov: If a patient is known to be at high risk of HCV infection, or is symptomatic, and the physician's suspicion of HCV infection is high, HCV RNA testing is often employed and is of diagnostic value, even after an initial negative anti-HCV test result.Specimen (Source)Anatomical Location / LateralityCollection Method / VolumeCollection TimeReceived Time BloodBLOOD SPECIMEN / UnknownVenipuncture / Kmphfgs5808/02/2023 1:57 PM CDT 08/02/2023 1:57 PM CDT Narrative Authorizing ProviderResult TypeResult StatusMacnaomy Vasquez PASEND OUTS Final ResultPerforming OrganizationAddressCity/State/ZIP CodePhone Number [facility] SENDOUT [address] [address] [address] [place] [address] * 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 Status: Final Status ?[id number] CLINICAL INFORMATION Last Date of LMP ? :11/17/13 Last Pap Date ?:03/03/2011 Last Pap Result ?:NIL ABN [place]/Bx Past 5 YRS :None Hormone Usage ?:BCP/OCP/Patch/Ring Menstrual Status ? :Regular Periods [place]/Bx done today ? :No Additional Information :None [...] lesions. COLLECTED:11/25/13 ? ACCESSIONED: ??11/26/13 ?? SIGNED: ??12/02/13[facility] CODENILABPAYNESVILLE HOSPITALpecimen (Source)Anatomical Location / LateralityCollection Method / VolumeCollection TimeReceived TimeTissue specimen (specimen) (Cervical/Vaginal)11/25/2013 11:15 AM CST11/25/2013 11:12 AM TOBACCO BALER Narrative Authorizing ProviderResult TypeResult StatusMarjeremy Franchesca TetzloffPATHOLOGY/CYTOLOGY Final ResultPerforming OrganizationAddressCity/State/ZIP CodePhone Number [facility] INTERNAL ZIP [phone] [place] [address] * ANTI HIV 1/2 (12/26/2010 5:05 PM TOBACCO BALER)ComponentValueRef RangeTest Method Analysis TimePerformed AtPathologist SignatureANTI HIV 1/2Non-reactiveABSt. Elizabeths Medical Centern (Source)Anatomical Location / Laterality Collection Method / VolumeCollection TimeReceived TimeBlood specimen (specimen)BLOOD SPECIMEN / Lsbozhi9412/26/2010 5:05 PM CST12/26/2010 4:55 PM TOBACCO BALER Narrative Authorizing ProviderResult TypeResult StatusLadonna Nathan NPSEND OUTSFinal Result Performing OrganizationAddressCity/State/ZIP CodePhone Number [facility] [address] [address] from Last 3 Months or Most Recently Relevant to Health Maintenance Insurance * Guarantor: Natalya Martinez LAccount TypeRelation to PatientDate of BirthPhone Billing AddressPersonal/YzskxrHkjurl37/18/1968 [address] [id number] * Guarantor: [employer] MAICO PXAccount TypeRelation to PatientDate of PhoneBilling AddressOcc Health/WlpzWcffhjxm81/01/2001 [phone] (Home) ATTN: FRANK WHITE [address] [address] Care Teams Team MemberRelationshipSpecialtyStart DateEnd Date Ermelinda Pierre MD [place] [address] PCP - GeneralFamily Practice06/23/24 Antoinette Palacio, PhD, LP PsychologistPsychology04/24/12 Gracia Rock, BRYAN [address] [facility] [place] [address] Consulting PhysicianClinical Nurse Specialist07/07/[address] [facility] [place] [address] Registered DietitianRegistered Dietician07/07/22 Staff, Other Clinical . [facility]07/03/22
--- OUTSIDE RECORDS SUMMARY | 2025-11-06 13:32 | XMS_ITS | Clinical Summary ---
Author Organization [facility] Address [address] [place] [address] Care Team Providers Care Level Designer Name Role Phone System, Provider Not In Primary Care Provider Un available Allergies Active AllergyReactionsCriticalityNoted DateCommentsAmoxicillinSwelling 03/01/20174783YmrhjqpkoBgvjdvhd89/13/2017Grapefruit ExtractOther (See Comments) 06/28/2021 Interaction with Tasigna medication Interaction with Tasigna medication Medications MedicationSigDispense QuantityRefillsLast FilledStart DateEnd DateStatus prochlorperazine (COMPAZINE) 10 MG tablet Take as pojhuu6703/22/2021ctive ondansetron (ZOFRAN) 4 MG tablet Take as vwdvwn1202/09/2021ctive hydrochlorothiazide (HYDRODIURIL) 25 MG tablet Take 25 [...] Indications:Chronic migraine without aura, intractable, without status pcvgsvdskok130 UnitsIMEVERY 3 OEMMBI47ctive Social History Tobacco UseTypesPacks/DayYears UsedDateSmoking Tobacco: NeverSmokeless Tobacco: Never Tobacco Cessation:Counseling Given: Not Answered PHQ-2AnswerDate RecordedPHQ-2 Lcyxr866dolescent EducationAnswerDate RecordedGetting School Help NeededNot on file08/11/2023CommentsUnknown Sex and Gender InformationValueDate RecordedSex Assigned at BirthNot on file Legal GrxNfyade93/22/2022 12:12 PM CDTGender IdentityNot on fileSexual OrientationNot on file Last Filed Vital Signs Vital SignReadingTime TakenCommentsBlood Uqocurbe945/8104 2:36 PM CDT Jtniz76682 2:36 PM CDTTemperature--Respiratory Rate--Oxygen Saturation-- Inhaled Oxygen Concentration--Weight--Height--Body Mass Index-- Plan of Treatment Not on file Insurance Care Teams Team MemberRelationshipSpecialtyStart DateEnd Date System, Provider Not In PCP - Generalinic06/08/22
[2025-11-06 13:51] VITALS: BP 120/79; PULSE 102; RESP 16; TEMP 36.3; O2SAT 97; BMI 35.7
[2025-11-06 14:42] LABS: Lactate* 1.9 mmol/L (0.5-1.9)
[2025-11-06 14:47] LABS: Hematocrit* 36.9 % (33.0-51.0); Hemoglobin* 11.8 gm/dL (12.0-16.0); Immature Granulocytes Pct Auto 0.7 %; Mean Corpuscular HGB Conc 32 gm/dL (32-36); Mean Corpuscular Hemoglobin 28 pg (26-34); Mean Corpuscular Volume 88 fL (80-100); RDW Coefficient of Variation % 13.2 % (11.5-15.5); Red Blood Count* 4.21 m/uL (4.00-5.20); White Blood Count* 2.80 K/uL (4.50-11.00)
[2025-11-06 14:49] LABS: Immature Granulocytes Abs Auto 0.00 K/uL (0.00-0.30); Lymphocytes Absolute Auto 0.70 K/uL (0.90-2.90); Slide Review Reflex No
--- NOTE | 2025-11-06 14:50 | ED.GENADULT ---
HPI - General Adult General Chief complaint: Abdominal Pain Stated complaint: Chest pain/ nausea Time Seen by Provider: 11/06/25 13:59 Source: patient Mode of arrival: ambulatory History of Present Illness HPI narrative: 35-year-old female with a notable prior history of chronic abdominal pain presents to the emergency department with evaluation of new chest pain but persistent abdominal symptoms. Her nausea and epigastric area discomfort have been worse than usual for the past few days, Reglan does not seem to be helping. Her main concern for presenting today is because of chest pain. This has been a of intermittent for the past few days, 3 to 02/26, described as dull and achy over the sternum. Does not radiate. It is not exertional. Last for a few minutes, comes several times per day. No history DVT or PE. Not anticoagulated. No family history of premature coronary artery disease. She was evaluated in the emergency room yesterday for abdominal pain. Those notes are reviewed. Extensive workup was not undertaken as she has had several recent extensive workups for her abdominal pain including a hospitalization reported in the notes. No dangerous findings were noted. Patient reports that she was seen at a different ED yesterday and was given Zofran and some fluids and did feel quite a bit better in terms of her abdominal symptoms at the time. She is continuing to work with her outpatient primary care team's regarding her ongoing symptoms. She called to report the chest pain to her bone marrow transplant team today and they advised her to be evaluated in the emergency room. She has no shortness of breath, no fever, no productive cough. No palpitations or sensation of irregular heart rate. She has had no reason to have had a stress test, alarm security or surveillance monitor, echo or similar workup in the past. No personal history of any coronary artery disease or heart issues. Past medical history is notable for prior bone marrow transplant, chronic abdominal pain. She does have several mental health medications, buprenorphine patch, prescriptions for Dilaudid and was given oxycodone yesterday as well. Social history reviewed. Allergies reviewed. ROS notable for the chest and abdominal symptoms as described above. Related Data Home Medications ?Medication ?Instructions ?Recorded ?Confirmed duloxetine 60 mg capsule,delayed 60 mg PO BID 08/06/22 11/05/25 release acyclovir 400 mg tablet 400 mg PO BID 05/31/25 11/05/25 aripiprazole 10 mg tablet 10 mg PO DAILY 05/31/25 11/05/25 buprenorphine 5 mcg/hour weekly 1 patch topical Q7D chronic pain 05/31/25 11/05/25 transdermal patch penicillin V potassium 500 mg 500 mg PO BID 05/31/25 11/05/25 tablet hydroxyzine HCl 25 mg tablet mg PO PRN 07/19/25 09/30/25 amlodipine 5 mg tablet 5 mg PO DAILY 11/05/25 11/05/25 cefdinir 300 mg capsule PO Q12H 11/05/25 celecoxib 100 mg capsule 100 mg PO BID 11/05/25 11/05/25 Previous Rx's ?Medication ?Instructions ?Recorded hydromorphone 2 mg tablet 2 mg PO Q6H PRN pain #20 tabs 11/04/25 (Dilaudid) oxycodone 5 mg tablet 5 - 10 mg (1 - 2 x 5 mg) PO Q6H 11/05/25 PRN pain #20 tabs Allergies Allergy/AdvReac Type Severity Reaction Status Date / Time grapefruit Allergy Intermediate other Verified 11/05/25 02:42 amoxicillin Allergy Mild other Verified 11/05/25 02:42 bupropion (From Wellbutrin) Allergy Mild Hives Verified [facility]/05[facility]25 02:[facility] Closed fracture of radius ?S52.90XA - Unspecified fracture of unspecified forearm, initial encounter for closed fracture (ICD-10) Depression ?F32.A - Depression, unspecified (ICD-10) Violation of controlled substance agreement ?Z91.148 - Patient's other noncompliance with medication regimen for other reason (ICD-10) Obesity ?E66.9 - Obesity, unspecified (ICD-10) Disorder of eye movements ?H51.9 - Unspecified disorder of binocular movement (ICD-10) Sciatica ?M54.30 - Sciatica, unspecified side (ICD-10) Neuropathy ?G62.9 - Polyneuropathy, unspecified (ICD-10) Migraines ?G43.909 - Migraine, unspecified, not intractable, without status migrainosus (ICD-10) Irritable bowel ?K58.9 - Irritable bowel syndrome, unspecified (ICD-10) Fibromyalgia ?M79.7 - Fibromyalgia (ICD-10) Anxiety ?F41.9 - Anxiety disorder, unspecified (ICD-10) Chronic myeloid leukemia (CML), BCR/ABL1-positive, in remission ?C92.11 - Chronic myeloid leukemia, BCR/ABL-positive, in remission (ICD-10) Surgical History History of eye surgery ?Z98.890 - Other specified postprocedural states (ICD-10) History of dilation and curettage ?Z98.890 - Other specified postprocedural states (ICD-10) History of bone marrow biopsy ?Z98.890 - Other specified postprocedural states (ICD-10) Social History Smoking Status: Never smoker Do you use any of these nicotine containing products: None Second hand tobacco smoke exposure: No How often do you have a drink containing alcohol: never How often do you have six or more drinks on one occasion: Never AUDIT-C Alcohol total score: 0 Non-prescribed substance use: denies use service: No Exam Const: Vital Signs, click to edit/add: Vital Signs - 24 hr 11/06/25 13:51 11/06/25 15:14 Temperature 97.4 F L Pulse Rate [Pulse Oximeter] 102 H 85 Respiratory Rate 16 18 Blood Pressure [Ri ght Upper Arm] 120/79 131/95 H Pulse Oximetry 97 95 Oxygen Delivery Me thod Room Air Room Air Documenting provider has reviewed patient's vital signs: yes Common normals: no apparent distress Other: Cooperative and calm for me. Appears well nourished, well hydrated. HENMT: Common normals: normocephalic, moist oral mucous membranes and oropharynx normal Head and scalp: normocephalic Neck & C-Spine: Common normals: no lymphadenopathy General: normal visual inspection Chest: Common normals: palpation of chest normal Resp: Common normals: normal respiratory effort, no use of accessory muscles and clear to auscultation bilaterally Effort & inspection: able to speak in complete sentences Auscultation: clear to auscultation bilaterally Cardio: Common normals: regular rate, regular rhythm, S1 normal heart sound, S2 normal heart sound and no murmurs Rate: regular rate Rhythm: regular rhythm Heart sounds: S1 normal and S2 normal GI: Common normals: Normal to inspection, nondistended, normoactive bowel sounds present, soft to palpation, no hepatosplenomegaly and no masses Palpation: soft and no hepatosplenomegaly Other: Diffusely tender to palpation, especially in the left lower quadrant and left upper quadrant. No rebound tenderness or guarding. No obvious mass. Psych: Appearance: grossly normal Attitude: calm Activity/motor behavior: appropriate eye contact Insight: insight good Judgement: judgment good Skin: Common normals: no rashes or lesions noted General skin exam: no rashes or lesions noted Course Course ED Course: 35-year-old female with a history of chronic abdominal pain now presenting with chest pain, not similar to a typical previous symptoms but she also has had increased nausea and upper GI symptoms in the last few days. Symptoms are nonexertional which does point away from a cardiac etiology but difficult to tell for sure. Would recommend EKG, alarm security or surveillance monitor, basic cardiac labs as well as repeating GI labs because this certainly could be related to pancreatitis, GERD, bowel obstruction, gallbladder disease, gastrointestinal illness amongst the other cardiac differential diagnoses including arrhythmia, coronary artery disease, heart failure, pulmonary embolism, upper respiratory infection, and others. Cannot exclude musculoskeletal etiology. I will not be offering the patient pain medications I did offer a L of IV fluid, 8 mg of Zofran and pantoprazole for her upper GI symptoms as I do suspect that her chest symptoms are related to an upper GI source. She was agreeable to this. Will await findings. Reevaluation(s) Time of Reevaluation #1: 16:17 Reevaluation #1: Counseled patient on findings. EKG, cardiac labs and GI labs are all reassuring and or stable for patient. She did not have improvement with the Zofran and Protonix. She had declining IV after was ordered which is certainly reasonable. She is a difficult IV stick. We discussed that I am uncertain what is causing her chest pain but I think it is likely related to her ongoing GI issues. I have encouraged her to follow up with her primary care team. She informs me that they have referred her to a paint preparer and the appointment is pending. I do think that this is the correct avenue for her to pursue next. We spent some time reviewing alarm symptoms that would warrant ED you re-evaluation for her chest and or abdominal symptoms. She was encouraged by this. All questions answered, written instructions provided. Vital Signs Vital signs: Initial Vital Signs Temperature 97.4 F L 11/06/25 13:51 Temperature Source Temporal Artery Scan 11/06/25 13:51 Pulse Rate 102 H 11/06/25 13:51 Respiratory Rate 16 11/06/25 13:51 Blood Pressure 120/79 11/06/25 13:51 Blood Pressure Mean 92 11/06/25 13:51 Blood Pressure Position Sitting 11/06/25 13:51 Pulse Oximetry 97 11/06/25 13:51 Oxygen Delivery Method Room Air 11/06/25 13:51 Vital Signs Temperature 97.4 F L 11/06/25 13:51 Pulse Rate 102 H 11/06/25 13:51 Respiratory Rate 16 11/06/25 13:51 Blood Pressure 120/79 11/06/25 13:51 Pulse Oximetry 97 11/06/25 13:51 Oxygen Delivery Method Room Air 11/06/25 13:51 Temperature 97.4 F L 11/06/25 13:51 Pulse Rate 85 11/06/25 15:14 Respiratory Rate 18 11/06/25 15:14 Blood Pressure 131/95 H 11/06/25 15:14 Pulse Oximetry 95 11/06/25 15:14 Oxygen Delivery Method Room Air 11/06/25 15:14 Medications Administered Medications: Discontinued Medications Generic Name Dose Route Start Last Admin Trade Name Freq PRN Reason Stop Dose Admin Omeprazole 40 mg 11/06/25 14:59 11/06/25 15:07 Omeprazole [address] PO 11/06/25 15:00 40 mg ONCE ONE Administration Ondansetron HCl 8 mg 11/06/25 14:59 11/06/25 15:08 Ondansetron Odt 4 Mg Tab PO 11/06/25 15:00 8 mg ONCE ONE Administration Medical Decision Making Lab Data Lab results reviewed: Yes I reviewed the patient's lab results Lab results narrative: Labs are essentially reassuring. No significant leukocytosis, LFTs are mildly elevated but actually better than usual for patient. Urinalysis does not show any signs of ketones, dehydration, infection. Electrolytes, renal function normal. D-dimer normal. Reassurance Labs: Lab Results 11/06/25 11/06/25 11/06/25 Range/Units 14:36 15:16 15:25 WBC 2.80 L (4.50-11.00) K/uL RBC 4.21 (4.00-5.20) m/uL Hgb 11.8 L (12.0-16.0) gm/dL Hct 36.9 (33.0-51.0) % MCV 88 (80-100) fL MCH 28 (26-34) pg MCHC 32 (32-36) gm/dL RDW Coeff of [place] 13.2 (11.5-15.5) % Plt Count 196 (140-440) K/uL Neut % (Auto) 55.8 (42.0-72.0) % Lymph % (Auto) 26.4 (20-44) % [place] % (Auto) 7.1 (0.0-11.0) % Eos % (Auto) 9.3 H (0.0-7.0) % Baso % (Auto) 0.7 (0.0-3.0) % Neut # (Auto) 1.60 L (1.7-7.0) K/uL Lymph # (Auto) 0.70 L (0.90-2.90) K/uL [place] # (Auto) 0.20 (0.00-0.90) K/UL Eos # (Auto) 0.30 (0.00-0.50) K/uL Baso # (Auto) 0.00 (0.00-0.30) K/uL Abs Immat Gran (auto) 0.00 (0.00-0.30) K/uL Imm/Tot Granulo (auto) 0.7 % D-Dimer Quant (PE/DVT) 0.34 (0.00-0.50) ug/ml Sodium 138 (135-149) mmol/L Potassium 3.9 (3.6-5.1) mmol/L Chloride 102 (96-114) mmol/L Carbon Dioxide 28 (20-32) mmol/L Anion Gap 8 (7-15) mEq/L BUN 10 (5-24) mg/dL Creatinine 0.7 (0.5-1.5) mg/dL Estimated Creat Clear 112.08 Estimated GFR 115 ml/min Glucose 167 H (60-115) mg/dL Lactate 1.9 (0.5-1.9) mmol/L Calcium 8.9 (8.4-10.6) mg/dL Total Bilirubin 0.3 (0.1-1.5) mg/dL AST 44 H (12-35) U/L ALT 60 H (4-35) U/L Alkaline Phosphatase 86 (40-150) U/L Troponin I < 0.01 (0.01-0.04) ng/mL POC Troponin I High Sensi 2.9 (2.9-13.0) pg/mL NT-Pro-B Natriuret Pep < 20 (See Note) pg/mL Total Protein 7.2 (6.0-8.3) g/dL Albumin 4.2 (3.3-5.0) g/dL Lipase 30 (23-300) U/L Urine Color Yellow (Yellow) Urine Appearance Clear (Clear) Urine pH 5.5 (5.0-8.5) Ur Specific [place] 1.025 (1.000-1.030) Urine Protein Negative (Negative) Urine Glucose (UA) Negative (Negative) Urine Ketones Negative (Negative) Urine Blood Negative (Negative) Urine Nitrite Negative (Negative) Urine Bilirubin Negative (Negative) Urine Urobilinogen 0.2 (0.2-1.0) Ur Leukocyte Esterase Negative (Negative) Urine RBC 0-2 (0-2) Urine WBC 0-2 (0-5) Ur Squamous Epith Cells None (None-Few) Urine Bacteria None (None) SARS-CoV-2 (PCR) Negative SARS-CoV-2 (Negative) Influenza Type A (PCR) Negative PCR FLU A (Negative) Influenza Type B (PCR) Negative PCR FLU B (Negative) RSV (PCR) Negative PCR RSV (Negative) Discharge Plan Discharge Clinical Impression: Chest pain, non-cardiac Patient Disposition: Home, Self-Care Instructions: Noncardiac Chest Pain (ED) Additional Instructions: as we discussed, I am not certain what the reason is for your chest pain but I did not find any signs of abnormal heart rhythm, heart attack, blood clot or other dangerous pathology today. Your GI labs are also stable which is reassuring. I am sorry that you did not get better relief from the omeprazole and Zofran today. I would recommend that you keep taking your pain medications that have been prescribed. That you continue to pursue input from a pain management or GI pain specialist. You should return to the emergency department if you have exertional chest pain, persistent symptoms, feeling of racing heart, abnormal heart rhythm, loss of consciousness or other dangerous findings. Activity Level: No Restrictions Discharge Diet: Regular Prescriptions: No Action duloxetine 60 mg capsule,delayed release(DR/EC) 60 mg PO BID acyclovir 400 mg tablet 400 mg PO BID aripiprazole 10 mg tablet 10 mg PO DAILY buprenorphine 5 mcg/hour patch weekly 1 patch topical Q7D penicillin V potassium 500 mg tablet 500 mg PO BID hydroxyzine HCl 25 mg tablet PO PRN hydromorphone [Dilaudid] 2 mg tablet 2 mg PO Q6H PRN (Reason: pain) Qty: 20 0RF amlodipine 5 mg tablet 5 mg PO DAILY cefdinir 300 mg capsule PO Q12H celecoxib 100 mg capsule 100 mg PO BID oxycodone 5 mg tablet 5 - 10 mg PO Q6H PRN (Reason: pain) Qty: 20 0RF Rx Instructions: Do not fill previous Rx for Dilaudid Follow Up/Referrals: Anny Matthews NP [Primary Care Provider, Family Practice] Stand Alone Forms: [employer] [facility] Info Instructions
[2025-11-06 15:02] LABS: Albumin* 4.2 g/dL (3.3-5.0); Chloride* 102 mmol/L (96-114); Potassium* 3.9 mmol/L (3.6-5.1); Sodium* 138 mmol/L (135-149)
[2025-11-06 15:04] LABS: Blood Urea Nitrogen* 10 mg/dL (5-24); Creatinine* 0.7 mg/dL (0.5-1.5); Est. Creatinine Clearance* 112.08; Estimated Glomerular Filt Rate 115 ml/min
[2025-11-06 15:05] LABS: Alanine Aminotransferase* 60 U/L (4-35); Alkaline Phosphatase* 86 U/L (40-150); Anion Gap 8 mEq/L (7-15); Aspartate Amino Transferase* 44 U/L (12-35); Bilirubin Total* 0.3 mg/dL (0.1-1.5); Calcium* 8.9 mg/dL (8.4-10.6); Carbon Dioxide* 28 mmol/L (20-32); Glucose* 167 mg/dL (60-115); Total Protein* 7.2 g/dL (6.0-8.3)
[2025-11-06] MEDS: OMEPRAZOLE 20 MG CAPSULE DR 40 MG PO (15:07)
[2025-11-06] MEDS: ONDANSETRON ODT 4 MG TAB 8 MG PO (15:08)
[2025-11-06 15:12] LABS: D Dimer Quantitative* 0.34 ug/ml (0.00-0.50)
[2025-11-06 15:14] VITALS: BP 131/95; PULSE 85; RESP 18; O2SAT 95
[2025-11-06 15:43] LABS: NT Pro B Type NatriureticPept* < 20 pg/mL (See Note)
[2025-11-06 16:03] LABS: Appearance Urine Clear (Clear)
[2025-11-06 16:04] LABS: PCR FLU A Negative PCR FLU A (Negative); PCR FLU B Negative PCR FLU B (Negative); PCR RSV Negative PCR RSV (Negative); SARS PCR* Negative SARS-CoV-2 (Negative)
== END 2025-11-06 16:36 | disposition home or self-care (01) ==
PROVIDERS: Emergency Provider Family Medicine; PCP Registered Nurse
DX: R07.89 Other chest pain (principal); R11.0 Nausea; R10.9 Unspecified abdominal pain; G89.29 Other chronic pain; Z94.81 Bone marrow transplant status; Z88.0 Allergy status to penicillin
CPT/HCPCS: 36415; 80053; 81001; 83605; 83690; 83880; 84484; 85025; 85379; 87631; 93005; 96361; 96374; 96375; 99284; 99285; A9270

== ENCOUNTER 2025-11-11 11:06 | Emergency (ER) | payer MEDICARE, BC, SELFPAY ==
--- OUTSIDE RECORDS SUMMARY | 2025-11-11 11:08 | XMS_ITS | Clinical Summary ---
Author Organization [facility] Address [address] [place] [id number] Care Team Providers Care Cleaner Assistant Name Role Phone System, Provider Not In Primary Care Provider Un available Allergies Active AllergyReactionsCriticalityNoted DateCommentsAmoxicillinSwelling 03/01/20175418QslixmfpqMvbaatvv38/13/2017Grapefruit ExtractOther (See Comments) 06/28/2021 Interaction with Tasigna medication Interaction with Tasigna medication Medications MedicationSigDispense QuantityRefillsLast FilledStart DateEnd DateStatus prochlorperazine (COMPAZINE) 10 MG tablet Take as [id number]/22/2021ctive ondansetron (ZOFRAN) 4 MG tablet Take as [id number]/09/2021ctive hydrochlorothiazide (HYDRODIURIL) 25 MG tablet Take 25 [...] Indications:Chronic migraine without aura, intractable, without status [id number] UnitsIMEVERY 3 POZDVM44ctive Social History Tobacco UseTypesPacks/DayYears UsedDateSmoking Tobacco: NeverSmokeless Tobacco: Never Tobacco Cessation:Counseling Given: Not Answered PHQ-2AnswerDate RecordedPHQ-2 Folfu638dolescent EducationAnswerDate RecordedGetting School Help NeededNot on file08/11/2023CommentsUnknown Sex and Gender InformationValueDate RecordedSex Assigned at BirthNot on file Legal LizXtxaij33/22/2022 12:12 PM CDTGender IdentityNot on fileSexual OrientationNot on file Last Filed Vital Signs Vital SignReadingTime TakenCommentsBlood [id number]/8104 2:36 PM CDT [id number] 2:36 PM CDTTemperature--Respiratory Rate--Oxygen Saturation-- Inhaled Oxygen Concentration--Weight--Height--Body Mass Index-- Plan of Treatment [place] file [place] [facility] [place] Address: [id number] [place] [address] [facility] [place] Address: [id number] [place] [address] Care Teams Team MemberRelationshipSpecialtyStart DateEnd Date System, Provider Not In PCP - Generalinic06/08/22
--- OUTSIDE RECORDS SUMMARY | 2025-11-11 11:09 | XMS_ITS | Clinical Summary ---
Author Organization [facility] Address [address] [place] [address] Care Team Providers Care School Librarian Name Role Phone Antoinette Palacio PhD, LP Unavailable [phone] Shweta Graciakim Huber PAINT GRINDER Unavailable [phone] Unavailable [phone] Staff, Other Clinical Unavailable Unavailabl e Ermelinda Pierre MD Primary Care Prov ider Allergies Active AllergyReactionsCriticalityNoted IydqMxgdlmhwXfhiqkuodwmDrbbv97/13/2017 GrapefruitOther - Describe In Comment Field06/28/2021 Interaction with Tasigna medication Grapefruit ExtractOther - Describe In Comment Field06/28/2021 Interaction with Tasigna medication Interaction with Tasigna medication IalxffqywTnwkb90/13/2017 Medications MedicationSigDispense QuantityRefillsLast FilledStart DateEnd DateStatus cholecalciferol, Vitamin D3, 2,000 unit tablet Take 1 Tablet (2,000 units) by mouth once daily.0Active onabotulinumtoxinA (BOTOX) 100 unit solr Inject 200 units intramuscular.08/22/2022ctive ketoconazole 2% shampoo (NIZORAL) 2 % shampoo Apply 1 Application topically to affected area(s) one time if needed.04/24/2023 Active ondansetron (ZOFRAN ODT) 4 mg disintegrating tablet Indications:NauseaPlace 1 Tablet (4 mg) on the tongue every 8 hours if needed for Nausea/Vomiting. 30 Tablet 4Active hydrOXYzine HCL (ATARAX) 25 mg tablet Indications:Generalized [...] mg) by mouth once daily. 180 Capsule tive ARIPiprazole (Abilify) 10 mg tablet Indications:MDD (major depressive disorder), recurrent episode, moderate (HC) Take 1 Tablet (10 mg) by mouth once daily. 90 Tablet 06/05/2025tive acyclovir (ZOVIRAX) 400 mg tablet Take 400 mg by mouth two times daily.5Active melatonin 5 mg tablet Take 5-10 mg by mouth once daily in the evening.Active amLODIPine (NORVASC) 5 mg tablet Take 5 mg by mouth.5Active carboxymethylcellulose 0.5 % eye drops in dropperette Place 1 Drop into the eye(s) 3 times daily if needed.Active celecoxib 100 mg capsule Take 100 mg by mouth.11/05/2025tive naloxone (NARCAN) 4 mg/actuation nasal spray Inhale 4 mg into affected nostril(s) one time if needed.5Active OLANzapine (ZYPREXA) 2.5 mg tablet 5Active OLANzapine (ZYPREXA) 5 mg tablet 07/06/2025tive oxyCODONE (ROXICODONE) 5 mg immediate release tablet TAKE 1 TO 2 TABLETS BY MOUTH EVERY 6 HOURS NEEDED FOR FOR PAIN. DO NOT FILL PREVIOUS RX FOR WZGYUZRY65/18/2025tive prochlorperazine (COMPAZINE) 5 mg tablet Indications:Chemotherapy induced nausea and vomitingTake 1 Tablet (5 mg) by mouth every 6 hours if needed for Nausea/Vomiting. 30 Tablet 11/09/2025tive dasatinib (SpryceL) 140 mg tablet Take 1 Tablet (140 mg) by mouth once daily.Discontinued (*Med complete/Regimen complete/Level of care change) prochlorperazine (COMPAZINE) 5 mg tablet Indications:Chemotherapy induced nausea and vomitingTake 1 Tablet (5 mg) by mouth every 6 hours if needed for Nausea/Vomiting. 30 Tablet Discontinued(*Med complete/Regimen complete/Level of care change) HYDROmorphone 2 mg tablet Take 2 mg by mouth at bedtime.Discontinued(*Med complete/Regimen complete/Level of care change) penicillin v potassium (PEN-VEE K) 500 mg tablet Take 500 mg by mouth two times daily before meals. Discontinued(*Med complete/Regimen complete/Level of care change) posaconazole (NOXAFIL) 100 mg delayed release tablet Take 300 mg by mouth once daily with a meal.Discontinued (*Med complete/Regimen complete/Level of care change) trimethoprim-sulfamethoxazole 80-400 mg tab Take 1 Tablet by mouth once daily.Discontinued(*Med complete/Regimen complete/Level of care change) metoclopramide HCl (REGLAN) 10 mg tablet Discontinued(*Med complete/Regimen complete/Level of care change)Hospital, Clinic, or Other Facility Administered MedicationOrdered Dose RouteFrequencyStart DateEnd DateStatus ketorolac 30 mg injection (TORADOL) Indications:severe pain30 mgIMONE TIMEEnded Active Problems ProblemNoted DateDiagnosed DateMalignant cdqxomdc22/18/2025 Overview (11/05/2025): AI Summary: Chronic Myeloid Leukemia [...] Clinical Communication - Transplant Blood and Marrow, [facility] in [place], [place] (from [facility]) 06/01/25: Hospital Encounter - Division of Gastroenterology in [place], [place], Gastroenterology and Hepatology (from [facility]) 05/29/25: Orders Only - [facility], [facility], [facility], Transplant Blood and Marrow (from [facility]) 05/20/25: Office Visit - Transplant Blood and [facility], [facility] in [place], [place] (from [facility]) 05/17/25: Orders Only - [facility], [facility], [facility], Transplant Blood and Marrow (from [facility]) Recent studies: 12/03/24: DX Chest 1 View by Stacey Broussard M.D., M.S. (from [facility]) ... [-] Chronic Myeloid Leukemia. 07/18/19: ct neck soft tissue with iv contrast by Shukri Perera P.A.-C., M.S. (from [facility]) ... [+] HISTORY: Patient has history of chronic myeloid leukemia, status post multiple chemotherapyregimens, most recently initiated on dasatinib on 03/09/19. Recent notes: 06/05/25: Progress Notes by Felicia Weathers NP ... [-] Constitutional: Leukemia diagnosed in 2019 , changes to CML meds ... [+] Other diagnosis impacting mental health: Leukemia diagnosed in 2018 ... [+] Leukemia (CML) was diagnosed in November,; she received a Bone Marrow Transplant on 12/10/24; She has been most recently seen by [facility]'s transplant psychiatry team ([phone]), Abilify was started around Oct, 2024 for augmentation for depression and this has been helpful 06/01/25: OR Notes - Anesthesia Postprocedure Evaluation by Isaias Tolbert APRN, CRNA (from [facility]) ... [+] Leukemia Myeloid Chronic BCR/ABL Positive Not Having Achieved Remission (HCC) 06/01/25: OR Notes - Anesthesia Preprocedure Evaluation by Bri Valenzuela M.D. (from [facility]) ... [+] Leukemia Myeloid Chronic BCR/ABL Positive Not Having Achieved Remission (HCC) [C92.10] 05/29/25: Consult Notes - Consults by Jennyfer Guidry M.S. (from [facility]) ... [-] Leukemia 05/28/25: H&P Notes - H&P by Renita Potts APRN, C.N.P., D.N.P. (from [facility]) ... [+] Following, this another BM biopsy was repeated which showed chronic phase CML, blast% was 1. ... 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(not detected on most recent testing), NGS demonstrated dual ASXL1 mutation, TKI resistant (Imatinib, Dasatinib, Nilotinib) History of peripheral stem cell fwxnnaggam33/03/2025Encounters for administrative /14/2025Encounters for administrative purposes 10/22/2024Obesity (BMI 30.0-34.9)09/20/2022Insulin vdnquuxicg10/02/2022besity, Class II, BMI 35-39.9007/07/2022Weight gain07/07/2022Eating hwcpgojp98/19/2022 Chronic mixed headache /30/2019Localized enlarged lymph nodes 04/03/2019Pain in joint03/06/2019Chronic myeloid oaikkutq04/23/2019Controlled substance agreement yszdoi9504/09/2017 Overview (03/19/2018): Signed 11/20/2016 Dr Mady Yanez Psychiatry Relationship zlvhuasa77/23/5083Imnor77/23/2017Major depressive disorder, recurrent episode, lmjsjvao09/28/2016Generalized anxiety gjtpgidq80/19/2015 Adjustment disorder with anxious mood01/07/20156279Rzhaxghuzqnfd66/16/2013Tension headache Resolved Problems ProblemNoted DateDiagnosed DateResolved DateDepression, major, recurrent, mtlwhlol53/26/Major depressive disorder, recurrent, severe without psychotic toztaonw22Depression, gujfdpjqte78/21/2011 02/08/2017Supervision of normal first wsxozvxec87/18/ttention deficit disorder without mention of mvqcamasunuzo48Major depressive disorder, recurrent episode, cdvupsvelsu24 Encounters DateTypeDepartmentCare XtabVlaellojskp64/22/2025 1:00 PM CSTOffice Visit [facility] [address] [place] [address] Clarita Fitzpatrick DO Abdominal Pain (constant sharp pain all over since 10/22/25/vomiting every morning//fever 2 days jyh993.4, then last week 100.2/)11/09/2025Nurse Triage [facility] [address] [place] [address] Ermelinda Pierre MD Hwwumxdnjkv66/22/2025Results Follow-Up [facility] [address] [place] [address] Osiris Mann PA 11/08/2025 1:56 PM HARDWARE SALES ASSISTANT - 11/08/2025 4:22 PM CSTEmergency [facility] [address] [place] [address] Frances Hernandez PA Chronic abdominal pain (Primary Dx); Chronic nausea Discharge Disposition: Home Self Care11/08/2025 11:50 AM CSTOffice Visit [facility] [address] [place] [address] Cheri Humphrey, MUSTAPHA Abdominal Pain11/08/2025Results Follow-Up [facility] [address] [place] [address] Cheri Humphrey NP 11/08/20251553Vztqin83/21/2025Nurse Triage [facility] [address] [place] [address] Ermelinda Pierre MD Abdominal Pain; Back Pain11/06/2025Nurse Triage [facility] [address] [place] [address] Ermelinda Pierre MD Abdominal Pain; Headache; Chest Pain11/05/2025 9:20 AM CSTOffice Visit [facility] [address] [place] [address] Osiris Mann PA Concerns (x2 weeks lower LT and RT abdominal pain, nausea )11/05/2025Telephone [facility] [address] [facility] [phone] Oncology, [facility] Referral (/History of peripheral stem cell transplant (HC) [Z94.84]/Malignant neoplasm (HC) [C80.1]/Chronic myeloid leukemia (HC) [C92.10]//)11/05/2025Travel 11/04/2025Nurse Triage [facility] [address] [place] [address] Ermelinda Pierre MD Abdominal Pain10/29/2025 9:00 AM HARDWARE SALES ASSISTANT - 10/29/2025 11:59 PM CSTHospital Encounter [facility] [address] [place] [address] Generalized anxiety disorder; Major depressive disorder, recurrent episode, moderate (HC)10/29/2025Travel 10/28/2025Nurse Triage [facility] [address] [place] [address] Ermelinda Pierre MD Abdominal Pain10/27/2025Telephone [facility] [address] [place] [address] Antonina Donovan [facility] DT10/27/2025Telephone [address] [address] Belkis Weathers (This bid writer spoke with the patient, who is currently in urgent care. Spoke about attendance and discharging to use day treatment benefit when healthier or a referral to [facility].)10/27/2025Nurse Triage [facility] [address] [place] [address] Ermelinda Pierre MD Abdominal Pain10/22/2025Telephone [facility] [address] [place] [address] Irina Hazel Uxsjrdarovu40/03/2025 9:00 AM HARDWARE SALES ASSISTANT - 10/21/2025 11:59 PM CSTHospital Encounter [facility] [address] [place] [address] Generalized anxiety disorder; Major depressive disorder, recurrent episode, moderate (HC)10/20/2025 9:00 AM HARDWARE SALES ASSISTANT - 10/20/2025 11:59 PM CSTHospital Encounter [facility] [address] [place] [address] Generalized anxiety disorder; Major depressive disorder, recurrent episode, moderate (HC)10/20/2025Travel 10/14/2025 8:58 AM HARDWARE SALES ASSISTANT - 10/14/2025 11:59 PM CSTHospital Encounter [address] [address] Generalized anxiety disorder; Major depressive disorder, recurrent episode, moderate (HC)10/14/2025Travel 10/08/2025 8:56 AM HARDWARE SALES ASSISTANT - 10/08/2025 11:59 PM CSTHospital Encounter [facility] [address] [place] [address] Generalized anxiety disorder; Major depressive disorder, recurrent episode, moderate (HC)10/08/2025Travel 10/07/2025 8:57 AM HARDWARE SALES ASSISTANT - 10/07/2025 11:59 PM CSTHospital Encounter [facility] [address] [place] [address] Generalized anxiety disorder; Major depressive disorder, recurrent episode, moderate (HC)10/06/2025 8:59 AM HARDWARE SALES ASSISTANT - 10/06/2025 11:59 PM CSTHospital Encounter [facility] [address] [place] [address] Generalized anxiety disorder; Major depressive disorder, recurrent episode, moderate (HC)10/06/2025Telephone [facility] [address] [place] [address] Iris Victor, [facility] Care Coordination (Re-Engagement )10/06/20251067Ivqytf97/13/2025Telephone [facility] [address] [place] [address] Irina Hazel Day treatment group09/30/2025 8:50 AM HARDWARE SALES ASSISTANT - 09/30/2025 11:59 PM CSTHospital Encounter [facility] [address] [place] [address] Generalized anxiety disorder; Major depressive disorder, recurrent episode, moderate (HC)09/29/2025 8:55 AM HARDWARE SALES ASSISTANT - 09/29/2025 11:59 PM CSTHospital Encounter [facility] [address] [place] [address] Generalized anxiety disorder; Major depressive disorder, recurrent episode, moderate (HC)09/29/2025Travel 09/24/2025 9:00 AM HARDWARE SALES ASSISTANT - 09/24/2025 11:59 PM CSTHospital Encounter [facility] [address] [place] [address] Generalized anxiety disorder; Major depressive disorder, recurrent episode, moderate (HC)09/23/2025 8:56 AM HARDWARE SALES ASSISTANT - 09/23/2025 11:59 PM CSTHospital Encounter [facility] [address] [place] [address] Generalized anxiety disorder; Major depressive disorder, recurrent episode, moderate (HC)09/23/2025Travel 09/22/2025Telephone [facility] [address] [facility] [place] [address] Irina Hazel Day treatment group09/17/2025 8:55 AM CDT - 09/17/2025 11:59 PM CDTHospital Encounter [facility] [address] [place] [address] Generalized anxiety disorder; Major depressive disorder, recurrent episode, moderate (HC)09/17/2025Travel 09/16/2025 8:55 AM CDT - 09/16/2025 11:59 PM CDTHospital Encounter [facility] [address] [facility] [place] [address] Generalized anxiety disorder; Major depressive disorder, recurrent episode, moderate (HC)09/15/2025 8:57 AM CDT - 09/15/2025 11:59 PM CDTHospital Encounter [facility] [address] [place] [address] Generalized anxiety disorder; Major depressive disorder, recurrent episode, moderate (HC)09/15/2025Travel 09/11/2025 10:30 AM CDTPhone Office Visit [facility] [address] [facility] [address] [place] [address] Renita Pichardo PsyD, LP Ncvdmfcxphbzc67/23/2025 8:58 AM CDT - 09/10/2025 11:59 PM CDTHospital Encounter [facility] [address] [place] [address] Generalized anxiety disorder; Major depressive disorder, recurrent episode, moderate (HC)09/09/2025 8:57 AM CDT - 09/09/2025 11:59 PM CDTHospital Encounter [facility] [address] [facility] [place] [address] Generalized anxiety disorder; Major depressive disorder, recurrent episode, moderate (HC)09/09/2025Travel 09/08/2025Telephone [facility] [address] [facility] [place] [address] Ivy Garcia RN [facility] DT09/03/2025 8:54 AM CDT - 09/03/2025 11:59 PM CDTHospital Encounter [facility] [address] [place] [address] Generalized anxiety disorder; Major depressive disorder, recurrent episode, moderate (HC)09/03/2025Travel 09/02/2025 8:57 AM CDT - 09/02/2025 11:59 PM CDTHospital Encounter [address] [address] Generalized anxiety disorder; Major depressive disorder, recurrent episode, moderate (HC)09/01/2025 9:00 AM CDT - 09/01/2025 11:59 PM CDTHospital Encounter [address] [address] Generalized anxiety disorder; Major depressive disorder, recurrent episode, moderate (HC)09/01/2025Travel 08/27/2025 9:00 AM CDT - 08/27/2025 11:59 PM CDTHospital Encounter [facility] [address] [place] [address] Generalized anxiety disorder; Major depressive disorder, recurrent episode, moderate (HC)08/27/2025Telephone [address] [address] Antonina Donovan [facility] DT08/27/20250128Eymwcy03/08/2025 9:00 AM CDT - 08/26/2025 11:59 PM CDTHospital Encounter [address] [address] Generalized anxiety disorder; Major depressive disorder, recurrent episode, moderate (HC)08/25/2025 9:00 AM CDT - 08/25/2025 11:59 PM CDTHospital Encounter [facility] [address] [place] [address] Generalized anxiety disorder; Major depressive disorder, recurrent episode, moderate (HC)08/25/2025Travel 08/18/2025 11:20 AM CDTOffice Visit [facility] [address] [place] [address] Fercho Fragoso MD Nausea (Body aches, sob and chills x 1 week and fatigue )08/17/2025 12:26 PM CDT - 08/17/2025 11:59 PM CDTHospital Encounter [facility] [address] [place] [address] Adjustment disorder with anxious mood (Primary Dx); Generalized anxiety disorder; Major depressive disorder, recurrent episode, moderate (HC)08/17/2025Travel 08/14/20254542Syvrya94/25/2025Telephone [facility] [address] [place] [address] Pcp, No Appointment Tiunwgqp88/24/2025Telephone [facility] [address] [place] [address] Renita Pichardo, Henna, FIDENCIO Late Cancel Appointmentfrom Last 3 Months Immunizations ImmunizationAdministration DatesNext DueCOVID-19 vaccine (Moderna 100mcg/0.5mL) MD MISTYV101/11/20211454OXPZ-ZRK-NSF37/25/2025,08/11/2025,06/10/2025HEPATITIS B (ADULT) RECOMBINANT ADJ. (HEPLISAV-B 0.5ML)08/11/2025,06/10/2025Hepatitis A (Adult) 06/10/2025Hepatitis B (Adult)03/07/2001,10/31/2000,09/19/2000Hepatitis B (Peds) 02/19/2001,10/31/2000,09/19/2000Human Papilloma Virus Nybvzvy6211/08/2007, 06/27/2007,04/26/2007Influenza Virus, Xqhwfxzcyfp29/15/2012,08/14/2011, 10/19/2003,09/17/2002,01/22/2002Influenza, IIV3 (Age 6-35 mos)08/14/2011 Influenza, IIV3 (Age >=3 years)09/02/2012,08/14/2011,10/19/2003,09/17/2002, 01/22/2002Influenza, APW691/06/2019MENINGOCOCCAL VACCINE (MENQUADFI 0.5ML) 2YO+ POLYSACCHARIDE PF08/11/2025,06/10/2025MMR04/25/2001,03/07/2001Meningococcal Vaccine (Menactra)04/26/2007Pneumococcal Conj 20-valent (Prevnar 20)10/13/2025, 08/11/2025,06/10/2025Td (Age >=7 Years)07/10/2003Tdap1Zoster (Shingrix- RZV, recombinant)08/11/2025,06/10/2025 Family History Medical HistoryRelationNameCommentsCystic fibrosisBrotherHyperlipidemiaFather HypertensionFatherEndometriosisMaternal AuntCoronary artery diseaseMaternal GrandfatherDiabetesMaternal GrandfatherOtherMaternal Grandfathersubstance abuse dependenceCancer-breastMaternal GrandmotherObesityMaternal GrandmotherOther Maternal Grandmothersubstance abuse dependenceAnxiety disorderMotherDepression MotherEndometriosisMotherHyperlipidemiaMotherHypertensionMotherObesityMother EndometriosisOther 1maternal cousinsCancer-breastOther 2maternal great grandma Cancer-breastOther 3maternal cousinCancer-breastPaternal AuntDementiaPaternal EhovyjbhfpvFxuewtkmSzwiWdumluVfktlyxmSrihdnlMducnc0HwddyfSzvixusf (Age 50) motorcycle accidentMaternal AuntMaternal GrandfatherDeceased (Age 81)Maternal GrandmotherDeceased (Age 63)BREAST CXMotherAliveOther 1Other 2Other 3Paternal AuntPaternal GrandfatherDeceasedPaternal GrandmotherAlive Social History Tobacco UseTypesPacks/DayYears UsedDateSmoking Tobacco: NeverPassive Smoke Exposure: NeverSmokeless Tobacco: Never Tobacco Cessation:Counseling Given: Not Answered Alcohol UseStandard Drinks/WeekCommentsNo0 (1 standard drink = 0.6 oz pure alcohol)PHQ-2AnswerDate RecordedPHQ-2 TOTAL [id number] Connections AnswerDate RecordedFrequency of Communication with Friends and Wfdfta876 Alcohol UseAnswerDate RecordedHow often do you have a drink containing alcohol?0 11/08/2025How many drinks containing alcohol do you have on a typical day when you are drinking?How often do you have five or more drinks on one occasion?Financial Resource StrainAnswerDate RecordedDifficulty of Paying Living Jielmtbo643ifficulty of Paying Living Crmoeldt989/26/2022 Food InsecurityAnswerDate RecordedWorried About Running Out of Food in the Last Qtzy900Transportation NeedsAnswerDate RecordedLack of Transportation (Medical)Housing StabilityAnswerDate RecordedUnable to Pay for Housing in the Last Hgmh730Interpersonal SafetyAnswerDate RecordedAre you being hit, kicked, pushed or yelled at (see row info)?No11/08/2025 Interpersonal Safety Abuse 12 - 18Not on file11/08/2025Interpersonal Safety Ambulatory VulnerabilityNot on file11/08/2025CommentsNoSex and Gender InformationValueDate RecordedSex Assigned at BirthNot on fileLegal SexFemale 12/02/2012 5:23 AM CSTGender IdentityNot on fileSexual OrientationNot on file OccupationIndustryJob Start DateJob End DateK-martNot on fileNot on fileNot on file Obstetrics History GravidaParaTermPretermABIABSABEctopicMultipleLivingLive [id number] OutcomeGATotal LaborLabor/2nd/7ksWzevnmEhoWnqbAtmjZDTLcaT0X6QcgsIfvrXqrdjpoBporv Comments:System Generated. Please review and update details.IAB Last Filed Vital Signs Vital SignReadingTime TakenCommentsBlood Psolkpnx458/8311/09/2025 1:06 PM HARDWARE SALES ASSISTANT Cscfk745211/09/2025 1:06 PM HFYKzcnvlkgaom27.8 ??C (98.3 ??F)11/09/2025 1:06 PM CSTRespiratory Xlng430101/09/2025 2:01 PM CSTOxygen Qznqfkthto83%11/09/2025 1:06 PM CSTInhaled Oxygen Concentration--Zccnjj389.4 kg (239 lb)11/09/2025 1:06 PM BZVFfroiu076.7 cm (5' 8)11/08/2025 2:01 PM CSTBody Mass Index36.34101/09/2025 2:01 PM HARDWARE SALES ASSISTANT Plan of Treatment DateTypeDepartmentCare Team (Latest Contact Info)Sddlnmszbbw93/26/2025 3:05 PM CSTOffice Visit [facility] [address] [place] [address] Ermelinda Pierre MD [address] [place] [address] 11/23/2025 11:05 AM CSTOffice Visit [facility] [address] [place] [address] Ermelinda Pierre MD [address] [place] [address] Health MaintenanceDue DateLast DoneCommentsTetanus letecqk70/15/022216, 07/10/2003Pap test for age 21-65 (Verified in Care Everywhere or Patient Record), 11/25/2013, 03/03/2011, Additional history exists COVID-19 vaccine series (2024- season), 03/30/2021, 03/02/2021Influenza Vaccine (#1)2018, 09/02/2012, 09/02/2012, Additional history existsDepression screening for age 12+61, 08/18/2025, 10/02/2024, Additional history existsBMI (ht and wt on same day) for age 18+, 08/18/2025, 06/23/2024, Additional history exists HPV series for age 9-30Cuhaumydy94/21/2007, 06/27/2007, 04/26/2007HIV for age 15-98Grkueeviq44/07/2011Hepatitis C screening for age 18-88Xjigaxbqf13/14/2023 Hepatitis B series for 19+Qvqsdvtgf23/23/2025, 06/10/2025, 03/07/2001, Additional history existsPneumococcal series for age 6-24Qqpvtkhcl59/25/2025, 08/11/2025, 06/10/2025 Procedures Procedure NamePriorityDate/TimeAssociated DiagnosisCommentsPREGNANCY URINESTAT 11/08/2025 1:38 PM HARDWARE SALES ASSISTANT Abdominal pain, generalized URINE QDNUFIPVZED82/21/2025 1:38 PM HARDWARE SALES ASSISTANT Abdominal pain, generalized UA W/ SEDIMENT EXAM REFLEXED PER GLVTBNPRASBO97/21/2025 1:38 PM HARDWARE SALES ASSISTANT Abdominal pain, generalized SCAN CORRESP-NFENMMJ7011/06/2025 7:40 AM HARDWARE SALES ASSISTANT SCAN CORRESP-HPVUUPU3911/06/2025 7:40 AM HARDWARE SALES ASSISTANT SCAN CORRESP-EPMGBXL5511/06/2025 7:40 AM HARDWARE SALES ASSISTANT SCAN CORRESP-COZXNMH8811/06/2025 7:40 AM HARDWARE SALES ASSISTANT SCAN CORRESP-AZJKURDRUKW70/19/2025 7:40 AM HARDWARE SALES ASSISTANT SCAN CORRESP-AOLKWMUBIKA34/19/2025 7:40 AM HARDWARE SALES ASSISTANT URINE HWZHDVDFpvudrt28/18/2025 10:25 AM HARDWARE SALES ASSISTANT Urinary tract infection without hematuria, site unspecified URINALYSIS VFSEKZKEVGRPpcclbu49/18/2025 10:25 AM HARDWARE SALES ASSISTANT Urinary tract infection without hematuria, site unspecified [facility]AL[facility] ([facility])Wxkkgxd0311/05/2025 10:25 AM HARDWARE SALES ASSISTANT Urinary tract infection without hematuria, site unspecified RED CELL QZTBHUVNHOEXDT10/30/2025 12:35 PM CDT Myalgia PLATELET SXOQZAABZFTK66/30/2025 12:35 PM CDT Myalgia MANUAL TBNVSRKKXIYMNXWH02/30/2025 12:35 PM CDT Myalgia CBC WITH AUTO MEEGLEVARHRAZRFU64/30/2025 12:35 PM CDT Myalgia C-REACTIVE VYJNVDTEWBD02/30/2025 12:35 PM CDT Myalgia CBC WITH AUTO YRSHNBUSRGAXESCG98/30/2025 12:35 PM CDT Myalgia KKUFezohny98/30/2025 12:35 PM CDT Myalgia ANTI UFAZibunvt73/14/2023 1:57 PM CDT Need for hepatitis C screening test BOILER ATTENDANT THIN PREP PAP SCREEN HFQGQHFasuyga88/07/2014 11:15 AM HARDWARE SALES ASSISTANT Screening for malignant neoplasm of the cervix ANTI HIV 1/6Uxiwvhh62/07/2011 5:05 PM HARDWARE SALES ASSISTANT Supervision of normal first (HC) from Last 3 Months or Most Recently Relevant to Health Maintenance Results * Urine Culture [00676.2] - STAT (11/08/2025 1:38 PM HARDWARE SALES ASSISTANT) Only the most recent of2 resultswithin the time period is included. ComponentValueRef RangeTest MethodAnalysis TimePerformed AtPathologist Signature CULTURE<10,000 CFU/mL multiple hyvhdsadx14/22/2025 2:18 PM [facility]YSpecimen (Source)Anatomical Location / Laterality Collection Method / VolumeCollection TimeReceived TimeUrineURINE SPECIMEN / UnknownNon-Blood / Rruddvx3911/08/2025 1:38 PM CST11/08/2025 1:39 PM HARDWARE SALES ASSISTANT Narrative Authorizing ProviderResult TypeResult StatusCheri Humphrey NPMICROBIOLOGYFinal ResultPerforming OrganizationAddressCity/State/ZIP CodePhone Number [facility] [address] [place] [address], * UA Dip w/reflex* to Micro per criteria [36462.2] - STAT (11/08/2025 1:38 PM HARDWARE SALES ASSISTANT)ComponentValueRef RangeTest MethodAnalysis TimePerformed AtPathologist SignatureCOLORYellowYellow Color11/08/2025 1:[address] [facility] LABORATORYCLARITYClearClear Ysmvilq3411/08/2025 1:[address] [facility] LABORATORYSPECIFIC GRAVITY,URINE1.0201.010, 1.015, 1.020, 1.025 11/08/2025 1:[address] [facility]ORATORYPH,URINE6.06.0, 7.0, 8.0, 5.5, 6.5, 7.5, 8. 1:[address] [facility] LABORATORYUROBILINOGEN,QUALITATIVENormalNormal EU/dl11/08/2025 1:56 PM [facility] LABORATORYPROTEIN, URINENegativeNegative mg/dL 11/08/2025 1:[address] [facility] LABORATORYGLUCOSE, URINE NegativeNegative mg/dL11/08/2025 1:[address] [facility] LABORATORYKETONES,URINENegativeNegative mg/dL11/08/2025 1:[address] [facility] LABORATORYBILIRUBIN,YCXNNZijffxauNgbupejr45/21/2025 1:56 PM [facility] LABORATORYOCCULT BLOOD,URINENegativeNegative 11/08/2025 1:56 PM [facility]ST[facility] LABORATORYNITRITENegative Nugjpamo26/21/2025 1:[address] [facility] LABORATORYLEUKOCYTE UWUAREEDQfnowckpTmhbovpl70/21/2025 1:56 PM [facility] LABORATORYSpecimen (Source)Anatomical Location / LateralityCollection Method / VolumeCollection TimeReceived TimeUrineURINE SPECIMEN / UnknownNon-Blood / Svwrpli9411/08/2025 1:38 PM CST11/08/2025 1:39 PM HARDWARE SALES ASSISTANT Narrative Authorizing ProviderResult TypeResult StatusRicarickey Humphrey NPURINEFinal Result Performing OrganizationAddressCity/State/ZIP CodePhone Number [facility] [address] [place] [address] * STAT hCG Urine (11/08/2025 1:38 PM HARDWARE SALES ASSISTANT)ComponentValueRef RangeTest MethodAnalysis TimePerformed AtPathologist SignaturePREGNANCY,URINENegative Sxosfors39/21/2025 1:[address] [facility] LABORATORYSpecimen (Source)Anatomical Location / LateralityCollection Method / VolumeCollection TimeReceived TimeUrineURINE SPECIMEN / UnknownNon-Blood / Eugnxqv6011/08/2025 1:38 PM CST11/08/2025 1:39 PM HARDWARE SALES ASSISTANT Narrative Authorizing ProviderResult TypeResult StatusRicarickey Dumont Kam NPURINEFinal Result Performing OrganizationAddressCity/State/ZIP CodePhone Number [facility] [address] [place] [address] * SCAN CORRESP-DIAGNOSTICS (11/06/2025 7:40 AM HARDWARE SALES ASSISTANT) Narrative 11/06/2025 7:40 AM HARDWARE SALES ASSISTANT Ordered by an unspecified provider. Authorizing ProviderResult TypeResult StatusOther Clinical StaffOTHERFinal Result * SCAN CORRESP-DIAGNOSTICS (11/06/2025 7:40 AM HARDWARE SALES ASSISTANT) Narrative 11/06/2025 7:40 AM HARDWARE SALES ASSISTANT Ordered by an unspecified provider. Authorizing ProviderResult TypeResult StatusOther Clinical StaffOTHERFinal Result * SCAN CORRESP-IMAGING (11/06/2025 7:40 AM HARDWARE SALES ASSISTANT) Only the most recent of4 resultswithin the time period is included. Anatomical RegionLateralityModalityOther Narrative 11/06/2025 7:40 AM HARDWARE SALES ASSISTANT Ordered by an unspecified provider. Authorizing ProviderResult TypeResult StatusOther Clinical StaffOTHERFinal Result * (ABNORMAL) UA Dip [[id number]] (11/05/2025 10:25 AM HARDWARE SALES ASSISTANT)ComponentValueRef Range Test MethodAnalysis TimePerformed AtPathologist SignatureBILIRUBINNEGATIVE ZYJPRBQS41/18/2025 10:39 AM [facility] SYSTEMCOLORYELLOW SMNCIY9911/05/2025 10:39 AM [facility] SYSTEMAPPEARANCE XJQFORDQCZ73/18/2025 10:39 AM [facility]ENTERPECIFIC GRAVITY> OR = 1.0301.001 - 1.5305411/05/2025 10:39 AM [facility] SYSTEMComment: Specific [place] values resulted are outside the analytical measurement range of this device. Recommend repeat/additional testing as clinically indicated. PH5.05.0 - 8. 10:39 AM [facility] SYSTEMGLUCOSE TXTEFIHZAFLVWSBC37/18/2025 10:39 AM [facility] KETONESTRACE(A)ZDGRVFTI26/18/2025 10:39 AM [facility] SYSTEMOCCULT XQDASXTOCCYAVSWMMCJIY07/18/2025 10:39 AM [facility] SYSTEMPROTEINNEGATIVENEGATIVE11/05/2025 10:39 AM [facility] SYSTEMNITRITENEGATIVENEGATIVE11/05/2025 10:39 AM [facility] SYSTEMLEUKOCYTE ETZGXTXBPOCQCEYIWBUVQIVZ20/18/2025 10:39 AM [facility] CENTERpecimen (Source)Anatomical Location / LateralityCollection Method / VolumeCollection TimeReceived TimeUrineURINE SPECIMEN / UnknownNon-Blood / Cfbzdbp0211/05/2025 10:25 AM CST11/05/2025 10:25 AM HARDWARE SALES ASSISTANT Narrative Authorizing ProviderResult TypeResult StatusNicole Twyla Mann PAURINEFinal ResultPerforming OrganizationAddressCity/State/ZIP CodePhone Number [facility] [address] [place] [address], [place] [phone] [facility] [address] [place] [address], [place] * UA Micro [17546.1] (11/05/2025 10:25 AM HARDWARE SALES ASSISTANT)ComponentValueRef RangeTest Method Analysis TimePerformed AtPathologist SignatureWBC UA0-5< OR = 5 /HPF11/06/2025 4:09 AM CSTQUEST DIAGNOSTICSRBC UA0-2< OR = 2 /HPF11/06/2025 4:09 AM CSTQUEST DIAGNOSTICSBACTERIA UANONE SEENNONE SEEN /HPF11/06/2025 4:09 AM CSTQUEST DIAGNOSTICSHYALINE CASTNONE SEENNONE SEEN /LPF101/07/2025 4:09 AM CSTQUEST DIAGNOSTICSCALCIUM OXALATE CRYSTALSFEWNONE OR FEW /HPF11/06/2025 4:09 AM HARDWARE SALES ASSISTANT [facility]QU[facility] EPITHELIAL CELLS UA0-5< OR = [...] Unknown 11/05/2025 10:25 AM CST11/05/2025 10:25 AM HARDWARE SALES ASSISTANT Narrative Authorizing ProviderResult TypeResult StatusNicole Twyla Mann PAURINEFinal ResultPerforming OrganizationAddressCity/State/ZIP CodePhone Number [facility] [place] [facility] [address] [place] [address], * (ABNORMAL) CBC WITH AUTO DIFFERENTIAL (08/18/2025 12:35 PM CDT)ComponentValue Ref RangeTest MethodAnalysis TimePerformed AtPathologist SignatureWHITE BLOOD COUNT3.5(L)4.5 - 11.0 thou/cu mm08/18/2025 2:12 PM [facility] LABORATORYRED BLOOD COUNT4.344.00 - 5.20 mil/cu mm08/18/2025 2:12 PM CDT [facility] JHHBYTWQNRSIBKEENIIE66.7(L)12.0 - 16.0 g/dL08/18/2025 2:12 PM [facility] ZKJQQFAWSAJDVLSUKAHZ29.033.0 - 51.0 % 08/18/2025 2:12 PM [facility] NSAZJCJUICZLL1427 - 100 fL 08/18/2025 2:12 PM [facility] NKNTPMVTOSBJX05.026.0 - 34.0 pg 08/18/2025 2:12 PM [facility] YOIHDQFISPFDXV58.532.0 - 36.0 g/dL08/18/2025 2:12 PM [facility] GGWOYYLKRZGRZ04.911.5 - 15.5 %08/18/2025 2:12 PM [facility] LABORATORYPLATELET COUNT 563312 - 440 thou/cu mm08/18/2025 2:12 PM [facility] LABORATORYMPV8.26.5 - 11.0 fL08/18/2025 2:12 PM [facility] LABORATORYSpecimen (Source)Anatomical Location / LateralityCollection Method / VolumeCollection TimeReceived TimeBloodBLOOD SPECIMEN / UnknownQuest Collect / Lupgtuw9208/18/2025 12:35 PM CDT08/18/2025 12:35 PM CDT Narrative Authorizing ProviderResult TypeResult StatusGeorge Néstor Fragoso MDHEMATOLOGY Final ResultPerforming OrganizationAddressCity/State/ZIP CodePhone Number [facility] [address] [place] [address] * (ABNORMAL) RED CELL MORPHOLOGY (08/18/2025 12:35 PM CDT)ComponentValueRef RangeTest MethodAnalysis TimePerformed AtPathologist SignatureELLIPTOCYTESFew 08/18/2025 2:11 PM [facility] LABORATORYPOLYCHROMASIASlight 08/18/2025 2:11 PM [facility] LABORATORYRBC COMMENTPresent(A) RBC morphology appears normal, RBC morphology within normal limits for newborns.08/18/2025 2:11 PM [facility] LABORATORYSpecimen (Source)Anatomical Location / LateralityCollection Method / VolumeCollection TimeReceived TimeBloodBLOOD SPECIMEN / UnknownQuest Collect / Unknown 08/18/2025 12:35 PM CDT08/18/2025 12:35 PM CDT Narrative Authorizing ProviderResult TypeResult StatusGeorrajat Fragoso MDHEMATOLOGY Final ResultPerforming OrganizationAddressCity/State/ZIP CodePhone Number [facility] [address] [place] [address] * PLATELET ESTIMATE (08/18/2025 12:35 PM CDT)ComponentValueRef RangeTest Method Analysis TimePerformed AtPathologist SignaturePLATELET ESTIMATEAdequate Adequate, No wromovca07/30/2025 2:11 PM [facility] Specimen (Source)Anatomical Location / LateralityCollection Method / Volume Collection TimeReceived TimeBloodBLOOD SPECIMEN / UnknownQuest Collect / Hvlbruo2708/18/2025 12:35 PM CDT08/18/2025 12:35 PM CDT Narrative Authorizing ProviderResult TypeResult StatusGeorrajat Fragoso MDHEMATOLOGY Final ResultPerforming OrganizationAddressCity/State/ZIP CodePhone Number [facility] [address] [place] [address] * (ABNORMAL) MANUAL DIFFERENTIAL (08/18/2025 12:35 PM CDT)ComponentValueRef RangeTest MethodAnalysis TimePerformed AtPathologist Signature% NEUTROPHILS 66.0%08/18/2025 2:11 PM [facility]% LYMPHOCYTES 21.0%08/18/2025 2:11 PM [facility]% MONOCYTES5.0% 08/18/2025 2:11 PM [facility]% EOSINOPHILS5.0% 08/18/2025 2:11 PM [facility]% BASOPHILS1.0% 08/18/2025 2:11 PM [facility]% METAMYELOCYTES2.0 (H)<0.1 %08/18/2025 2:11 PM [facility] LABORATORYNEUTROPHILS ABSOLUTE2.31.7 - 7.0 thou/cu mm08/18/2025 2:11 PM [facility] LABORATORYLYMPHOCYTES ABSOLUTE0.7(L)0.9 - 2.9 thou/cu mm08/18/2025 2:11 PM CDT [facility] LABORATORYMONOCYTES ABSOLUTE0.2<0.9 thou/cu mm 08/18/2025 2:11 PM [facility] LABORATORYEOSINOPHILS ABSOLUTE 0.2<0.5 thou/cu mm08/18/2025 2:11 PM [facility] BASOPHILS ABSOLUTE0.0<0.3 thou/cu mm08/18/2025 2:11 PM [facility] LABORATORYABSOLUTE METAMYELOCYTES0.1(H)<=0.0 ou/cu 08/18/2025 2:11 PM [facility] LABORATORYSpecimen (Source)Anatomical Location / LateralityCollection Method / VolumeCollection TimeReceived TimeBloodBLOOD SPECIMEN / UnknownQuest Collect / Iccymrf1808/18/2025 12:35 PM CDT08/18/2025 12:35 PM CDT Narrative Authorizing ProviderResult TypeResult StatusGeorge Néstor Fragoso MDHEMATOLOGY Final ResultPerforming OrganizationAddressCity/State/ZIP CodePhone Number [facility] [address] [place] [address] * TSH (08/18/2025 12:35 PM CDT)ComponentValueRef RangeTest [...] CDT Narrative Authorizing ProviderResult TypeResult StatusFercho Fragoso [facility] ADAHEMISTRY Final ResultPerforming OrganizationAddressCity/State/ZIP CodePhone Number [facility] [address] [address], * C-REACTIVE PROTEIN (08/18/2025 12:35 PM CDT)ComponentValueRef RangeTest Method Analysis TimePerformed AtPathologist SignatureC-REACTIVE PROTEIN<0.3<0.5 mg/dL 08/18/2025 1:29 PM [facility] LABORATORYSpecimen (Source) Anatomical Location / LateralityCollection Method / VolumeCollection Time Received TimeBloodBLOOD SPECIMEN / UnknownQuest Collect / Nepimyt0908/18/2025 12:35 PM CDT08/18/2025 12:35 PM CDT Narrative Authorizing ProviderResult TypeResult StatusFercho Fragoso [facility] ADAHE[facility] Final ResultPerforming OrganizationAddressCity/State/ZIP CodePhone Number [facility] [address] [place] [address] * ANTI HCV (08/02/2023 1:57 PM CDT)ComponentValueRef RangeTest MethodAnalysis TimePerformed AtPathologist SignatureHEPATITIS C ANTIBODYNon-Reactive Non-Wcndizvg54/15/2023 3:36 PM CDTUNCHILDREN'S MINNESOTA LABORATORYComment:Please note, per www.CDC.gov: If a patient is known to be at high risk of HCV infection, or is symptomatic, and the physician's suspicion of HCV infection is high, HCV RNA testing is often employed and is of diagnostic value, even after an initial negative anti-HCV test result.Specimen (Source)Anatomical Location / LateralityCollection Method / VolumeCollection TimeReceived Time BloodBLOOD SPECIMEN / UnknownVenipuncture / Epbewdo4808/02/2023 1:57 PM CDT 08/02/2023 1:57 PM CDT Narrative Authorizing ProviderResult TypeResult StatusEstefany Vasquez PASEND OUTS Final ResultPerforming OrganizationAddressCity/State/ZIP CodePhone Number [facility] [address] [place] [phone] [place] [address] * BOILER ATTENDANT THIN PREP PAP SCREEN IMAGED (11/25/2013 11:15 AM HARDWARE SALES ASSISTANT)ComponentValueRef RangeTest MethodAnalysis TimePerformed AtPathologist SignatureCYTOLOGY CYTOPATHOLOGY REPORT [facility] Status: Final Status ?[id number] CLINICAL INFORMATION Last Date of LMP ? :11/17/13 Last Pap Date ?:03/03/2011 Last Pap Result ?:NIL ABN [place]/Bx Past 5 YRS :None Hormone Usage ?:BCP/OCP/Patch/Ring Menstrual Status ? :Regular Periods [place]/Bx done today ? :No Additional Information :None [...] lesions. COLLECTED:11/25/13 ? ACCESSIONED: ??11/26/13 ?? SIGNED: ??12/02/13[facility]ILAB[facility] (Source)Anatomical Location / LateralityCollection Method / VolumeCollection TimeReceived TimeTissue specimen (specimen) (Cervical/Vaginal)11/25/2013 11:15 AM CST11/25/2013 11:12 AM HARDWARE SALES ASSISTANT Narrative Authorizing ProviderResult TypeResult StatusEliciajeremy Sorensen TetzloffPATHOLOGY/CYTOLOGY Final ResultPerforming OrganizationAddressCity/State/ZIP CodePhone Number [facility] [place] [place] [address] * ANTI HIV 1/2 (12/26/2010 5:05 PM HARDWARE SALES ASSISTANT)ComponentValueRef RangeTest Method Analysis TimePerformed AtPathologist SignatureANTI HIV 1/2Non-reactiveL[facility] (Source)Anatomical Location / Laterality Collection Method / VolumeCollection TimeReceived TimeBlood specimen (specimen)BLOOD SPECIMEN / Myrhmqc0812/26/2010 5:05 PM CST12/26/2010 4:55 PM HARDWARE SALES ASSISTANT Narrative Authorizing ProviderResult TypeResult StatusLadonna Marisa Nathan NPSEND OUTSFinal Result Performing OrganizationAddressCity/State/ZIP CodePhone Number [facility] [place] [place] [address] from Last 3 Months or Most Recently Relevant to Health Maintenance Insurance * Guarantor: Natalya Martinez LAccbelinda TypeRelation to PatientDate of BirthPhone Billing AddressPersonal/JkwvdlFtitog24/18/1968 [id number] [id number] * Guarantor: MANNY NINA PXAccount TypeRelation to PatientDate of PhoneBilling AddressExcela [facility]/VjsnCwzfltwc14/01/2001 [phone] (Home) ATTN: FRANK WHITE [address] [address] Care Teams Team MemberRelationshipSpecialtyStart DateEnd Date Ermelinda Pierre MD [address] [place] [address] PCP - GeneralFawyly Practice06/23/24 Antoinette Palacio, PhD, LP PsychologistPsychology04/24/12 Gracia Rock, BRYAN [address] [facility] [address] [place], [place] [address] Consulting PhysicianClinical Nurse Specialist07/07/[address] [facility] [place] [address] Registered DietitianRegistered Dietician07/07/22 Staff, Other Clinical . [facility]07/03/22
[2025-11-11 11:18] VITALS: BP 134/87; PULSE 109; RESP 18; TEMP 36.6; O2SAT 97
--- NOTE | 2025-11-11 11:32 | ED.GENADULT ---
HPI - General Adult General Chief complaint: Abdominal Pain Stated complaint: Chest pain, stomach pain, blood in stool Time Seen by Provider: 11/11/25 11:31 History of Present Illness HPI narrative: Patient presents to the emergency department complaining of abdominal pain. Pain has been going on for the last 20 days. Patient states pain continues to get worse every day now making it difficult for her to sleep. Pain is on the left side of her abdomen. Patient states she had a bloody stool this morning as well. 35-year-old woman presenting to the emergency department with concern of increasing abdominal pain particularly epigastric area now. Chronic pain in the left low abdomen she says. Beginning last night has had a few episodes of diarrhea with 3rd then this morning accompanied by some bright red blood. Pain has spread up through the mid abdomen to the epigastrium now. She has not had a fever. History of BM T in November of this year. When discussing pain management, she says her care team does not want her to take acetaminophen as it might mask a fever. She is nauseated. Has not vomited. Shortness of breath. Underlying history of irritable bowel fibromyalgia. Admittedly now pain is everywhere in her abdomen. Apparently had an upper endoscopy yesterday. Reports some biopsies were taken. Unknown diagnosis otherwise at this time. Related Data Home Medications ?Medication ?Instructions ?Recorded ?Confirmed duloxetine 60 mg capsule,delayed 60 mg PO BID 08/06/22 11/11/25 release acyclovir 400 mg tablet 400 mg PO BID 05/31/25 11/11/25 aripiprazole 10 mg tablet 10 mg PO DAILY 05/31/25 11/11/25 buprenorphine 5 mcg/hour weekly 1 patch topical Q7D chronic pain 05/31/25 11/11/25 transdermal patch penicillin V potassium 500 mg 500 mg PO BID 05/31/25 11/11/25 tablet hydroxyzine HCl 25 mg tablet mg PO PRN 07/19/25 09/30/25 amlodipine 5 mg tablet 5 mg PO DAILY 11/05/25 11/11/25 cefdinir 300 mg capsule PO Q12H 11/05/25 celecoxib 100 mg capsule 100 mg PO BID 11/05/25 11/11/25 Previous Rx's ?Medication ?Instructions ?Recorded hydromorphone 2 mg tablet 2 mg PO Q6H PRN pain #20 tabs 11/04/25 (Dilaudid) oxycodone 5 mg tablet 5 - 10 mg (1 - 2 x 5 mg) PO Q6H 11/05/25 PRN pain #20 tabs prochlorperazine maleate 10 mg 10 mg PO QID PRN #15 tabs 11/11/25 tablet (Compazine) Allergies Allergy/AdvReac Type Severity Reaction Status Date / Time grapefruit Allergy Intermediate other Verified 11/11/25 11:22 amoxicillin Allergy Mild other Verified 11/11/25 11:22 bupropion (From Wellbutrin) Allergy Mild Hives Verified 11/11/25 11:22 Review of Systems Status of ROS: Reports: 6 or more systems reviewed and unremarkable except as noted in History and below [facility] Medical History Closed fracture of radius ?S52.90XA - Unspecified fracture of unspecified forearm, initial encounter for closed fracture (ICD-10) Depression ?F32.A - Depression, unspecified (ICD-10) Violation of controlled substance agreement ?Z91.148 - Patient's other noncompliance with medication regimen for other reason (ICD-10) Obesity ?E66.9 - Obesity, unspecified (ICD-10) Disorder of eye movements ?H51.9 - Unspecified disorder of binocular movement (ICD-10) Sciatica ?M54.30 - Sciatica, unspecified side (ICD-10) Neuropathy ?G62.9 - Polyneuropathy, unspecified (ICD-10) Migraines ?G43.909 - Migraine, unspecified, not intractable, without status migrainosus (ICD-10) Irritable bowel ?K58.9 - Irritable bowel syndrome, unspecified (ICD-10) Fibromyalgia ?M79.7 - Fibromyalgia (ICD-10) Anxiety ?F41.9 - Anxiety disorder, unspecified (ICD-10) Chronic myeloid leukemia (CML), BCR/ABL1-positive, in remission ?C92.11 - Chronic myeloid leukemia, BCR/ABL-positive, in remission (ICD-10) Surgical History History of eye surgery ?Z98.890 - Other specified postprocedural states (ICD-10) History of dilation and curettage ?Z98.890 - Other specified postprocedural states (ICD-10) History of bone marrow biopsy ?Z98.890 - Other specified postprocedural states (ICD-10) Social History Smoking Status: Never smoker Do you use any of these nicotine containing products: None Second hand tobacco smoke exposure: No How often do you have a drink containing alcohol: never How often do you have six or more drinks on one occasion: Never AUDIT-C Alcohol total score: 0 Non-prescribed substance use: denies use service: No Exam Narrative: Exam Narrative: Pleasant. Sounds congested in the nasopharynx. Face is a little flushed. Admittedly she has been crying causing his congestion as a was not present prior. Lungs are clear. Heart in elevated rate and regular rhythm. Abdomen is soft and diffusely tender without peritoneal signs. Normal bowel sounds. Extremities are well perfused without edema. Right eye with medial deviation. Const: Vital Signs, click to edit/add: Vital Signs - 24 hr 11/11/25 11:18 Temperature 97.8 F Pulse Rate [Right Pulse Oximeter] 109 H Respiratory Rate 18 Blood Pressure [Ri ght Upper Arm] 134/87 Pulse Oximetry 97 Oxygen Delivery Me thod Room Air Documenting provider has reviewed patient's vital signs: yes Course Vital Signs Vital signs: Initial Vital Signs Temperature 97.8 F 11/11/25 11:18 Temperature Source Temporal Artery Scan 11/11/25 11:18 Pulse Rate 109 H 11/11/25 11:18 Pulse Rhythm Regular 11/11/25 11:18 Pulse Strength 3+ Normal 11/11/25 11:18 Respiratory Rate 18 11/11/25 11:18 Blood Pressure 134/87 11/11/25 11:18 Blood Pressure Mean 102 11/11/25 11:18 Blood Pressure Position Sitting 11/11/25 11:18 Pulse Oximetry 97 11/11/25 11:18 Oxygen Delivery Method Room Air 11/11/25 11:18 Vital Signs Temperature 97.8 F 11/11/25 11:18 Pulse Rate 109 H 11/11/25 11:18 Respiratory Rate 18 11/11/25 11:18 Blood Pressure 134/87 11/11/25 11:18 Pulse Oximetry 97 11/11/25 11:18 Oxygen Delivery Method Room Air 11/11/25 11:18 Temperature 97.8 F 11/11/25 11:18 Pulse Rate 100 11/11/25 16:18 Respiratory Rate 16 11/11/25 16:18 Blood Pressure 117/95 H 11/11/25 16:18 Pulse Oximetry 97 11/11/25 16:18 Oxygen Delivery Method Room Air 11/11/25 11:18 Medications Administered Medications: Discontinued Medications Generic Name Dose Route Start Last Admin Trade Name Maximiliano PRN Reason Stop Dose Admin Famotidine 20 mg 11/11/25 16:02 11/11/25 16:17 Famotidine 20 Mg Tablet PO 11/11/25 16:03 20 mg ONCE ONE Administration Lidocaine/Aluminum/Magnesium/Simeth 30 ml 11/11/25 12:06 11/11/25 12:23 Gi Cocktail (Visc Lido/Antacid) 30 Ml PO 11/11/25 12:07 30 ml ONCE ONE Administration Lorazepam 1 mg 11/11/25 12:10 11/11/25 12:24 Lorazepam 1 Mg Tablet PO 11/11/25 12:11 1 mg ONCE ONE Administration Omeprazole 40 mg 11/11/25 16:02 11/11/25 16:18 Omeprazole [address] PO 11/11/25 16:03 40 mg ONCE ONE Administration Oxycodone HCl 5 mg 11/11/25 12:10 11/11/25 12:24 Oxycodone 5 Mg Tablet PO 11/11/25 12:11 5 mg ONCE ONE Administration Oxycodone HCl 5 mg 11/11/25 13:43 11/11/25 13:54 Oxycodone 5 Mg Tablet PO 11/11/25 13:44 5 mg ONCE ONE Administration Prochlorperazine 10 mg 11/11/25 12:06 11/11/25 12:39 Prochlorperazine 10 Mg Tablet PO 11/11/25 12:07 10 mg ONCE ONE Administration Medical Decision Making MDM Narrative Medical decision making narrative: Considering community prevalence would screen for COVID and influenza. Appears to have an enteritis on top of underlying chronic abdominal pain. Check standard labs for evidence of more significant intra-abdominal process. As she has a difficult IV start. We discussed possible oral treatments that might be beneficial. Compazine tends to work better and has Zofran at home which she says typically does not work. At this is also with some esophagitis/GERD symptoms would avoid oral ibuprofen type medication. I think anxiety is contributing to this discomfort. Ordered for GI cocktail, lorazepam and Compazine. Minimal symptom relief with treatments as ordered. She is quite upset, crying. Notes that this really is only been going on since the beginning of October. I do see however chronic abdominal pain throughout her history. I think this is exacerbation with diarrhea of underlying irritable bowel/functional abdominal pain. Labs do not suggest diverticulitis nor does likely location of discomfort. She reports a number of CT scans in the last few weeks and then this EGD as well. I do see recently mildly elevated transaminases but no upper abdominal ultrasound nor can she remember home ultrasound being done. She is crying noting she feels like a failure having to be in bed since beginning october and not even wrap her children's presents for [place]. Will proceed with limited abdominal ultrasound --discussed results with water safety instructor. Limited due to gas. Radiology over-read below INDICATION: Elevated transaminases, abdominal pain with nausea TECHNIQUE: Ultrasound abdomen limited. Sonographic images of the right upper quadrant were obtained using bess-scale and color Doppler images. COMPARISON: CT abdomen pelvis 08/09/2025. FINDINGS: Liver: Echogenic liver measuring 21.7 centimeters in the craniocaudal dimension. Geographic area of hypodensity in the left hepatic lobe measuring 3.2 x 2.3 x 2.9 centimeters. Hepatopetal flow in the main portal vein. Gallbladder: No stones or sludge. Normal wall thickness. No pericholecystic fluid. Common bile duct: 6 mm. Pancreas: Not well visualized due to bowel gas. Right kidney: Normal in size. Normal echotexture and cortex. No suspicious masses, stones, or hydronephrosis. Vasculature: Air is partially visualized and unremarkable. Visualized IVC is unremarkable. Distended stomach limited evaluation. IMPRESSION: Limited evaluation due to difficult penetration and stomach distention. Hepatic steatosis. Geographic area of hypodensity in the left hepatic lobe likely represents focal fatty sparing. No definite lesion is seen in this region on the recent CTs. Dictated by Shelley Cantu MD @ 11/11/2025 4:14:18 PM Given another 5 mg of oxycodone During time here in the emergency department results of posted of her endoscopy from yesterday. She reads off to me that findings were consistent with an erosive gastropathy. Also some friability of the gastric mucosa. We discussed these findings, significance. Is reporting some improvement in her symptoms now. Does look relieved. See patient discharge plan for further discussion You received famotidine and omeprazole here in the emergency department. Omeprazole would be similar to the Protonix that [facility] is restarting. For breakthrough discomfort as Protonix gets up to effect, can take famotidine once or twice daily between 20-40 mg per dose. Would also go with a more bland diet short term. Also as discussed, giving small quantity of Percocet from [facility]. Sending in Compazine for nausea if needed. Medical Records Medical records reviewed: Yes I reviewed the patient's medical records Lab Data Lab results reviewed: Yes I reviewed the patient's lab results Labs: Lab Results 11/11/25 11/11/25 11/11/25 Range/Units 12:26 12:38 13:42 WBC 6.97 (4.50-11.00) K/uL RBC 4.42 (4.00-5.20) m/uL Hgb 12.1 (12.0-16.0) gm/dL Hct 37.4 (33.0-51.0) % MCV 85 (80-100) fL MCH 27 (26-34) pg MCHC 32 (32-36) gm/dL RDW Coeff of [place] 13.3 (11.5-15.5) % Plt Count 212 (140-440) K/uL Neut % (Auto) 80.1 H (42.0-72.0) % Lymph % (Auto) 13.6 L (20-44) % [place] % (Auto) 5.5 (0.0-11.0) % Eos % (Auto) 0.1 (0.0-7.0) % Baso % (Auto) 0.1 (0.0-3.0) % Neut # (Auto) 5.60 (1.7-7.0) K/uL Lymph # (Auto) 0.90 (0.90-2.90) K/uL [place] # (Auto) 0.40 (0.00-0.90) K/UL Eos # (Auto) 0.01 (0.00-0.50) K/uL Baso # (Auto) 0.01 (0.00-0.30) K/uL Abs Immat Gran (auto) 0.04 (0.00-0.30) K/uL Imm/Tot Granulo (auto) 0.6 % Sodium 136 (135-149) mmol/L Potassium 4.0 (3.6-5.1) mmol/L Chloride 104 (96-114) mmol/L Carbon Dioxide 21 (20-32) mmol/L Anion Gap 11 (7-15) mEq/L BUN 10 (5-24) mg/dL Creatinine 0.6 (0.5-1.5) mg/dL Estimated GFR 119 ml/min Glucose 220 H (60-115) mg/dL Calcium 9.4 (8.4-10.6) mg/dL Total Bilirubin 0.4 (0.1-1.5) mg/dL Direct Bilirubin 0.2 (0.0-0.5) mg/dL AST 34 (12-35) U/L ALT 56 H (4-35) U/L Alkaline Phosphatase 105 (40-150) U/L C-Reactive Protein < 0.5 L (0.5-1.0) mg/dL Total Protein 7.6 (6.0-8.3) g/dL Albumin 4.5 (3.3-5.0) g/dL Lipase 13 L (23-300) U/L SARS-CoV-2 (PCR) Negative SARS-CoV-2 (Negative) Influenza Type A (PCR) Negative PCR FLU A (Negative) Influenza Type B (PCR) Negative PCR FLU B (Negative) RSV (PCR) Negative PCR RSV (Negative) Lab Acknowledgement Test Added Discharge Plan Discharge Clinical Impression: Erosive gastropathy, Abdominal pain Additional Instructions: You received famotidine and omeprazole here in the emergency department. Omeprazole would be similar to the Protonix that [facility] is restarting. For breakthrough discomfort as Protonix gets up to effect, can take famotidine once or twice daily between 20-40 mg per dose. Would also go with a more bland diet short term. Also as discussed, giving small quantity of Percocet from [facility]. Sending in Compazine for nausea if needed. Prescriptions: New prochlorperazine maleate [Compazine] 10 mg tablet 10 mg PO QID PRNQty: 15 0RF No Action duloxetine 60 mg capsule,delayed release(DR/EC) 60 mg PO BID acyclovir 400 mg tablet 400 mg PO BID aripiprazole 10 mg tablet 10 mg PO DAILY buprenorphine 5 mcg/hour patch weekly 1 patch topical Q7D penicillin V potassium 500 mg tablet 500 mg PO BID hydroxyzine HCl 25 mg tablet PO PRN hydromorphone [Dilaudid] 2 mg tablet 2 mg PO Q6H PRN (Reason: pain) Qty: 20 0RF amlodipine 5 mg tablet 5 mg PO DAILY cefdinir 300 mg capsule PO Q12H celecoxib 100 mg capsule 100 mg PO BID oxycodone 5 mg tablet 5 - 10 mg PO Q6H PRN (Reason: pain) Qty: 20 0RF Rx Instructions: Do not fill previous Rx for Dilaudid Follow Up/Referrals: Anny Matthews NP [Referring, Family Practice]
[2025-11-11] MEDS: GI COCKTAIL (VISC LIDO/ANTACID) 30 ML PO (12:23)
[2025-11-11 12:30] LABS: Hematocrit* 37.4 % (33.0-51.0); Hemoglobin* 12.1 gm/dL (12.0-16.0); Immature Granulocytes Abs Auto 0.04 K/uL (0.00-0.30); Immature Granulocytes Pct Auto 0.6 %; Mean Corpuscular HGB Conc 32 gm/dL (32-36); Mean Corpuscular Hemoglobin 27 pg (26-34); Mean Corpuscular Volume 85 fL (80-100); RDW Coefficient of Variation % 13.3 % (11.5-15.5); Red Blood Count* 4.42 m/uL (4.00-5.20); White Blood Count* 6.97 K/uL (4.50-11.00)
[2025-11-11 12:31] LABS: Lymphocytes Absolute Auto 0.90 K/uL (0.90-2.90); Slide Review Reflex No
[2025-11-11] MEDS: PROCHLORPERAZINE 10 MG TABLET PO (12:39)
[2025-11-11 12:55] LABS: Chloride* 104 mmol/L (96-114)
[2025-11-11 12:56] LABS: Potassium* 4.0 mmol/L (3.6-5.1); Sodium* 136 mmol/L (135-149)
[2025-11-11 12:58] LABS: Blood Urea Nitrogen* 10 mg/dL (5-24); Creatinine* 0.6 mg/dL (0.5-1.5); Estimated Glomerular Filt Rate 119 ml/min
[2025-11-11 12:59] LABS: Anion Gap 11 mEq/L (7-15); Calcium* 9.4 mg/dL (8.4-10.6); Carbon Dioxide* 21 mmol/L (20-32); Glucose* 220 mg/dL (60-115)
[2025-11-11 13:17] LABS: PCR FLU A Negative PCR FLU A (Negative); PCR FLU B Negative PCR FLU B (Negative); PCR RSV Negative PCR RSV (Negative); SARS PCR* Negative SARS-CoV-2 (Negative)
--- NOTE | 2025-11-11 13:42 | CRLHL7_ITS ---
For Patients: As a result of the Century Cures Act, medical imaging exams and procedure reports are released immediately into your electronic medical record. You may view this report before your referring provider. If you have questions, please contact your health care provider. INDICATION: Elevated transaminases, abdominal pain with nausea TECHNIQUE: Ultrasound abdomen limited. Sonographic images of the right upper quadrant were obtained using bess-scale and color Doppler images. COMPARISON: CT abdomen pelvis 08/09/2025. FINDINGS: Liver: Echogenic liver measuring 21.7 centimeters in the craniocaudal dimension. Geographic area of hypodensity in the left hepatic lobe measuring 3.2 x 2.3 x 2.9 centimeters. Hepatopetal flow in the main portal vein. Gallbladder: No stones or sludge. Normal wall thickness. No pericholecystic fluid. Common bile duct: 6 mm. Pancreas: Not well visualized due to bowel gas. Right kidney: Normal in size. Normal echotexture and cortex. No suspicious masses, stones, or hydronephrosis. Vasculature: Air is partially visualized and unremarkable. Visualized IVC is unremarkable. Distended stomach limited evaluation. IMPRESSION: Limited evaluation due to difficult penetration and stomach distention. Hepatic steatosis. Geographic area of hypodensity in the left hepatic lobe likely represents focal fatty sparing. No definite lesion is seen in this region on the recent CTs. Dictated by Shelley Cantu MD @ 11/11/2025 4:14:18 PM (Electronically Signed)
[2025-11-11 14:15] LABS: Albumin* 4.5 g/dL (3.3-5.0)
[2025-11-11 14:17] LABS: Alanine Aminotransferase* 56 U/L (4-35); Aspartate Amino Transferase* 34 U/L (12-35)
[2025-11-11 14:18] LABS: Alkaline Phosphatase* 105 U/L (40-150); Bilirubin Direct* 0.2 mg/dL (0.0-0.5); Bilirubin Total* 0.4 mg/dL (0.1-1.5); Total Protein* 7.6 g/dL (6.0-8.3)
[2025-11-11] MEDS: FAMOTIDINE 20 MG TABLET PO (16:17)
[2025-11-11 16:18] VITALS: BP 117/95; PULSE 100; RESP 16; O2SAT 97
[2025-11-11] MEDS: OMEPRAZOLE 20 MG CAPSULE DR 40 MG PO (16:18)
== END 2025-11-11 17:07 | disposition home or self-care (01) ==
PROVIDERS: Emergency Provider Family Medicine; PCP Student in an Organized Health Care Education/Training Program
DX: K31.89 Other diseases of stomach and duodenum (principal); R10.13 Epigastric pain
CPT/HCPCS: 36415; 76705; 80048; 80076; 83690; 85025; 86140; 87631; 99284; A9270